=== PATIENT | female | born 1980 | race Caucasian/White ===

== ENCOUNTER → 2016-11-14 | Outpatient (CLI) | payer BC, OTHER ==
[~2016-11-14] MED LIST: /ACETCOD2T PO; /ONDA4TA PO; /ONDA4TA SL; /QUET25TA PO; ABIL1TAB5 PO; ADDE5TAB5 PO; ALPR1TAB PO; AMBI10TA PO; AMBI12.52 PO; AMBI5TAB PO; AMOX875T19 PO; BACT2CRE TOP; BENA25CA PO; BUTA1CAP PO; BUTR10DI2 TD; CARA1TAB2 PO; CELE20TA; CIPR3OPO OS; CIPR500T89 PO; CLIN300C2 PO; Calcium PO; D-AMPHETAMINE SALT PO; DICY10CA69 PO; DOXY100C42 PO; EFFE37.527 PO; ENOX40SY; FAMO20TA PO; FLAG500T PO; FLUR15CA14 PO; FOLI1TAB2 PO; GABA300C2 PO; GENT0.3S2 OS; GENTAMICIN TOP; HYDR-2808 PO; HYDR-3716 PO; HYDR-3719 PO; HYDR7.5T38 PO; IRON1TAB PO; LIDO1DIS2 TD; LORA0.5T PO; LOVE1INJ PO; LYRI75CA PO; META800T82 PO; MORP15TASA PO; MORPHINE IR PO; Multivitamin PO; NORC1TAB4 PO; OMEP40CA2 PO; ONDA1TAB15 PO; OXYC-208 PO; OXYC15TA76 PO; PEPC1TAB2 PO; PERC10TA17 PO; PERC5TAB8 OR; PERCOCET PO; PRIL40CA; PROM125TA PO; PROT1TAB2 PO; REGL10TA6 PO; REGL5TAB2 PO; ROBA500T PO; SALI0.9I2 IV; SENO8.6T9 PO; SERT-138 PO; SOMA350T PO; SUCR1SS PO; SUCR1TA PO; TIZA2CAP3 PO; TOBROPO OS; TPNINJ3 IV; TYLE325T5 PO; TYLE500T78 PO; VALI10TA PO; VENL75TA3 PO; VICO5TAB16 PO; VITA-122 PO; VITA10002 PO; Vitamin B12 PO; XANA2TAB2 PO; [UNRECOGNIZED DRUG - CODE] IV; [UNRECOGNIZED DRUG - CODE] IV; [UNRECOGNIZED DRUG - CODE] PO; [UNRECOGNIZED DRUG - REMARK] PO; ambien PO; epipen IM; iron PO; pepcid PO
--- NOTE | 2016-12-04 01:40 | ECWPNPC ---
PATIENT NAME: NI RICHMOND : 1980 GENDER: FEMALE VISIT DATE: 11/14/2016 DISCHARGE DATE: 11/14/16 1224 VISIT LOCKED DATE TIME: PHYSICIAN: LUIS BRANDON RESOURCE: LUIS BRANDON REASON FOR APPOINTMENT 1. STOMACH/BACK HISTORY OF PRESENT ILLNESS HISTORY OF PRESENT ILLNESS: PAIN THE PATIENT DESCRIBES THE PAIN... FALL RISK SCREENING: SCREENING :NO FALLS IN THE PAST YEAR TODAY'S VISIT: NOTES: FIRST VIST SINCE 09/05. STATES HAS HAD MULTIPLE DEATHS IN FAMILY AND FINALLY HAS DATE IN [place] FOR GI ISSUES.STILL CAN NOT EAT SOLID FOOT AND HAS PERSISTANT NAUSEA. NO SIGNIFICANT CONSTIPATION - HAS BLOOD IN STOOL. SLEEP DISRUPTED CAN NOT GET COMFORTABLE. RATES PAIN TODAY 5/10. PAIN IS CENTERD IN CENTER ABDOMEN WELL IN THE LOW BACK. DESCRIBES PAIN CONSTANT, BURNING, SHARP TENDER AND SORE. CURRENT MEDICATIONS TAKING EFFEXOR XR 225 MG CAPSULE EXTENDED RELEASE 24 HOUR 1 CAPSULE WITH FOOD ORALLY ONCE A DAY TAKING BENTYL 10 MG CAPSULE 1 CAPSULE ORALLY FOUR TIMES A DAY TAKING PROMETHAZINE HCL 25 MG TABLET 1 TABLET NEEDED ORALLY Q 6 HRS PRN NAUSEA TAKING ABILIFY 10 MG TABLET 1 TABLET ORALLY ONCE A DAY TAKING PROMETHAZINE HCL 25 MG SUPPOSITORY 1 SUPPOSITORY NEEDED RECTAL EVERY Q 8 HRS PRN NAUSEA TAKING ZOLPIDEM TARTRATE 10 MG TABLET 1 TABLET AT BEDTIME NEEDED ORALLY BEFORE BEDTIME MDD=1 TAKING OXYCODONE HCL 15 MG TABLET 1 TABLET NEEDED ORALLY EVERY 4 HRS PRN PAIN MDD=6 TAKING SOMA 350 MG TABLET 1 TABLET ORALLY THREE TIMES A DAY NEEDED FOR SPASM MDD=3 NOT-TAKING CYCLOBENZAPRINE HCL 10 MG TABLET 1 TABLET ORALLY THREE TIMES A DAY NOT-TAKING SOMA 350 MG TABLET 2 TABLET NEEDED ORALLY 2 TIMES A DAY MEDICATION LIST REVIEWED AND RECONCILED WITH THE PATIENT PAST MEDICAL HISTORY DEPRESSION/ANXIETY HYDRATION ISSUES HX OF MRSA BACK PROBLEM ALLERGIES SULFA (FOR ALLERGY USE ONLY): ANAPHYLAXIS: ALLERGY FENTANYL: HEART RATE FLUCTUATIONS: ALLERGY SOCIAL HISTORY GENERAL: TOBACCO USE ARE YOU A: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 NEW PATIENT PAIN DIARY TODAY'S VISITNOTES FROM 0-10, WHAT LEVEL IS YOUR PAIN TODAY?0 PAIN CLINIC PFS, CLERGY, PUBLIC HEALTH REFERRALS PFS REFERRAL NEEDED?NO CLERGY REFERRAL NEEDED?NO PUBLIC HEALTH REFERRAL NEEDED?NO WAS THE PROVIDER NOTIFIED OF ANY PERTINENT INFO?NO PFS REFERRAL NEEDED?NO CLERGY REFERRAL NEEDED?NO PUBLIC HEALTH REFERRAL NEEDED?NO WAS THE PROVIDER NOTIFIED OF ANY PERTINENT INFO?NO REVIEW OF SYSTEMS CONSTITUTIONAL: ANY CHANGE IN YOUR MEDICAL CONDITION? NO . CHILLS NO . FEVER NO . INFECTION: DO YOU HAVE NEW INFECTIONS? NO . DO YOU HAVE HISTORY OF MRSA? NO . MUSCULOSKELETAL: ANY NEW PATTERNS OF PAIN OR NUMBNESS? NO . GASTROENTEROLOGY: ANY NEW CHANGE IN BOWEL CONTROL? NO . GENITOURINARY: ANY NEW CHANGE IN BLADDER CONTROL? NO . IS THERE A CHANCE YOU COULD BE ? NO . HEMATOLOGY/LYMPH: DO YOU TAKE ANY BLOOD THINNERS? (FOR EXAMPLE- COUMADIN, PLAVIX, AGGRENOX, PLATEL, PRADAXA, OR XARELTO) NO . WHEN WAS YOUR LAST DOSE? DATE: TIME: . NEUROLOGY: HAVE YOU FALLEN IN THE PAST 6 MONTHS? NO . ANY NEW EXTREMITY NUMBNESS OR WEAKNESS? NO . CARDIOLOGY: DO YOU HAVE A PACEMAKER OR DEFIBRILLATOR? NO . RESPIRATORY: HAVE YOU BEEN SICK IN THE PAST WEEK? NO . FEVER NO . FLU LIKE SYMPTOMS? NO . COUGH NO . INTEGUMENTARY: DO YOU HAVE ANY RASHES OR OPEN SORES? NO . ALLERGIC/IMMUNO: ARE YOU ALLERGIC TO SHELLFISH OR IV DYE? NO . ANY NEW ALLERGIES? NO . PSYCHIATRIC: DO YOU HAVE THOUGHTS OF HURTING YOURSELF OR SOMEONE ELSE? NO . ARE YOU ABUSED, NEGLECTED, OR IN AN UNSAFE ENVIRONMENT? NO . ENDOCRINOLOGY: ARE YOU DIABETIC? NO . OTHER: DO YOU NEED ANY PRESCRIPTIONS? NO . IF YES, PLEASE LIST: ____ . ANY NEW PROBLEMS WITH YOUR MEDICATIONS? NO . WHEN DID YOU LAST EAT? ____ . WHEN DID YOU LAST DRINK? ____ . WHAT DID YOU LAST DRINK? ____ . NAME OF PERSON DRIVING YOU HOME? ____ . DO YOU HAVE ANY OTHER QUESTIONS OR CONCERNS NO . PSYCHOLOGY: ARE YOU RECEIVING COUNSELING? SEEING A COUNSELOR AND DR RAMOS TWICE A MONTH. REPORTS MULTIPLE FAMILY INJURIES AND DEATHS. REPORTS FAMILY IS IN [place] AND NOT LOCAL . REVIEWED BY: PROVIDER: LUIS DALEY . VITAL SIGNS WT 138.6 LBS, HT 66 IN, BMI 22.37 INDEX, BP 134/77 MM HG, HR 106 /MIN, RR 16 /MIN, TEMP 97.6 F, OXYGEN SAT % 100%, NA INITIALS SC 11:34. EXAMINATION GENERAL EXAMINATION: GENERAL APPEARANCE:COLOR IS PALE. PSYCHALERT , ORIENTED X 3 , ANXIOUS. LUNGS:DECREASED AIR ENTRY AT BASES, NO WHEEZES, RALES OT RHONCHI. HEART:HEART RATE REGULAR. ABDOMEN:TENDER TO PALPATION, MINIMAL DISTENTION, BOWEL SOUNDS QUIET. ASSESSMENTS EPIGASTRIC PAIN - R10.13 (PRIMARY) CHRONICALLY ON OPIATE THERAPY - Z79.899 TREATMENT EPIGASTRIC PAIN REFILL PROMETHAZINE HCL SUPPOSITORY, 25 MG, 1 SUPPOSITORY NEEDED, RECTAL, EVERY Q 8 HRS PRN NAUSEA, 30 DAY(S), 20, REFILLS 1 REFILL OXYCODONE HCL TABLET, 15 MG, 1 TABLET NEEDED, ORALLY, EVERY 4 HRS PRN PAIN MDD=5, 30 DAYS, 150, REFILLS 0 NOTES: FOLLOW UP WITH [facility]. MUST SEE WITH MEDS AT [facility] TODAY. CLINICAL NOTES: BRINGS EMPTY BOTTLE OF OXYCODONE TODAY AND STATES SHE HAS 6 TABS STILL AT HOME. I REVIEWED WITH HER KULDEEP SHE SHOULD HAVE AT LEAST 9 DAYS REMAINING. STATES THE PHARMACUIST GAVE HER INSTRUCTIONS THAT SHE COULD TAKE 6 TABS PER DAY. REVIEWED WITH HER THTA THAT WAS NOT THE PLAN AND SHE HAD ONLY BEEN RECEIVING 160 TABS/MONFOR THE LAST 4 MONTHS. WILL DECREASE TO 150 TABS PER DAY - MAX 5/DAY., ISTOP REGISTRY REVIEWED AND DEMNOSTRATES COMPLLIANCE. REVIEWED WITH PATIENT THE POTENTIAL RISK OF INCREASED SEDATION, RESPIRATORY SUPPRESSION AND WITH THE COMBINATION OF BENZODIAZAPINE AND OPIOD MEDICATIONS. PATIENT STATES HE UNDERSTANDS THIS RISK AND WISHES TO CONTINUE WITH THERAPY, RECENT URINE TOXICOLOGY REVIEWED. NO UNAUTHORIZED MEDICATIONS. NO ILLICIT SUBSTANCES AND PRESCRIBED MEDICATIONS WERE PRESENT. PROCEDURE CODES FA211 ESTABILISHED PATIENT [facility] CHARGE FOLLOW UP 1 MONTH (REASON: ABD PAIN) ELECTRONICALLY SIGNED BY RYLEY CROOK ON 12/03/2016 AT 09:44 AM EST DISCLAIMER : THIS IS A VISIT SUMMARY EXTRACTED FROM THE [employer] CHART. IT IS NOT A COPY OF THE [employer] PROGRESS NOTE. [facility]
== END ==
LOC: M PAIN 13:40
PROVIDERS: ATTEND Nurse Practitioner Family
DX: G89.29 Other chronic pain (principal); R10.13 Epigastric pain; R11.0 Nausea; R19.5 Other fecal abnormalities; G47.9 Sleep disorder, unspecified; F32.9 Major depressive disorder, single episode, unspecified; F41.9 Anxiety disorder, unspecified; Z88.2 Allergy status to sulfonamides; Z88.5 Allergy status to narcotic agent; Z79.899 Other long term (current) drug therapy; Z86.14 Personal history of Methicillin resistant Staphylococcus aureus infection

== ENCOUNTER 2016-12-14 10:07 | Emergency (ER) | payer BC, OTHER ==
[2016-12-14 11:15] LABS: ANION GAP 9 MEQ/L (8-16); BLOOD UREA NITROGEN 10 MG/DL (7-18); CALCIUM LEVEL 8.2 MG/DL (8.5-10.1); CARBON DIOXIDE LEVEL 27 MEQ/L (21-32); CHLORIDE LEVEL 104 MEQ/L (98-107); GLOMERULAR FILTRATION RATE > 60.0 (>60); GLUCOSE, FASTING 122 MG/DL (70-105); POTASSIUM SERUM 3.3 MEQ/L (3.5-5.1); SODIUM LEVEL 140 MEQ/L (136-145)
[2016-12-14] MEDS ORDERED: POTASSIUM CHLORIDE 10 MEQ SR TABLET As Ordered ONE (11:35)
--- NOTE | 2016-12-14 12:28 | EDDOCDS ---
Physician Documentation [facility] Name: Claude Diaz Age: 36 yrs Sex: Female : 1980 Arrival Date: 12/14/2016 Time: 10:07 Bed 5 Private MD: Troy Nino Disposition: 12/14 11:32 Critical Care: Critical care not applicable. pc Disposition: 12/14/16 11:35 Discharged to Home/Self Care. Impression: Opioid dependence with withdrawal, Chronic pain syndrome, Conversion disorder with seizures or convulsions - Pseudoseizures, Unspecified protein-calorie malnutrition - chronic, Hypokalemia - mild, treated. - Condition is Stable. - Discharge Instructions: Chronic Pain. - Medication Reconciliation, Local Pharmacy Hours form. - Follow up: Maryana Boykin FNP; When: As previously arranged; Reason: Continuance of care. - Problem is new. - Symptoms have improved. HPI: 10:39 This 36 yrs old Female presents to ER via Wheelchair with complaints of pc Palpitations. 10:39 The history is obtained from the patient. She complains of having palpitations and a pc fast heart rate since this morning. She denies any chest pain, SOB. She has a long history of pseudoseizures and chronic pain, overusing her medications regularly. She denies the same, despite her EMR showing a report from the Pain Clinic from only 4 weeks ago describing the same. She was using 6 tablets of oxycodone 15mg daily instead of 5 per day as written. Per Joan[facility], a new 7 day RX for oxycodone 10mg was sent in today by the Pain Clinic, due to her running out of her initial RX some 4 days or 20 pills short. She denies any of these events occurring despite the proof. During questioning, she had seizure-like activity that was stopped with sternal rubbing and she was not post-ictal, and she immediately requested "benzo's" for the activity. Her pulse has been 90-104 throughout the ED visit despite her describing it as racing . The patient has been recently seen by a painter plate. Historical: - Allergies: Fentanyl (tachcardia)transdermal; SULFA (SULFONAMIDES) (Anaphylaxis); - Home Meds: 1. fluoxetine 20 mg Oral cap 1 cap once daily (Last dose: 12/14/2016) 2. Soma 350 mg Oral tab 1 tab 3 times per day 3. lorazepam 1 mg Oral tab 1 tab as needed 4. venlafaxine 75 mg oral tr24 1 tab once daily 5. Ambien 10 mg Oral tab 1 tab nightly 6. Promethegan 25 mg Rectal supp q8hr PRN for nausea 7. oxycodone 10 mg Oral tab 1 tab every 4 hours - PMHx: Depression; herniated disc; Pancreatitis; - PSHx: Gastric bypass 2010; Hysterectomy; Tonsillectomy; Insertion of G-tube with subsequent removal 2013; - The history from nurses notes was reviewed: and I agree with what is documented. - Social history: Smoking status: Patient states was never smoker of tobacco. No barriers to communication noted. - : Unable to assess if pt is on anticoagulants. Unable to Verify Home Med List with the patient / caregiver. Note Will contact [facility] [employer] [facility] [employer] for complete list. - Hospitalizations: : No recent hospitalization is reported. - Exposure Risk Screening:: None identified. - Immunization history:: All immunizations up-to-date. - Family history: Not pertinent. - Social history:: the patient uses illicit drugs, including RX drug abuse - opioids, Soma and BDZs. 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 pc Exam: 10:39 General Appearance: no acute distress, alert, cachectic . pc 10:39 EENT: ears, nose and throat normal, pharynx normal, mucous membranes moist pupils 7mm. 10:39 Neck: The exam reveals no acute abnormalities. ROM is normal and painless. No nuchal rigidity is noted.. 10:39 Respiratory: no respiratory distress, normal breath sounds. 10:39 CVS: regular pulse rate, regular rhythm, normal S1 and S2, no murmurs, strong peripheral pulses. 10:39 Abdomen: soft, non-tender. 10:39 Back: normal inspection. 10:39 Skin: skin color is normal, warm, dry. 10:39 Extremities: The extremities have a grossly normal appearance. 10:39 Neuro: oriented x 3, cranial nerves normal as tested, no motor deficits, no sensory deficits. 10:39 Psych: normal mood. Vital Signs: 10:10 BP 120 / 69; Pulse 104; Resp 18; Temp 98.6(T); Pulse Ox 100% on R/A; Weight 61.23 kg / dem1 134.99 lbs; Height 5 ft. 7 in. (170.18 cm); Pain 8/10; 10:43 BP 107 / 64 (auto/); jo3 10:43 Pulse 84 MON; Pulse Ox 100% ; jo3 10:43 BP 116 / 66; Pulse 82; Resp 16; Temp 98.5(O); Pulse Ox 100% on R/A; jo3 10:58 BP 96 / 62 (auto/); jo3 10:58 Pulse 86 MON; Pulse Ox 100% ; jo3 11:13 BP 93 / 59 (auto/); jo3 11:13 Pulse 82 MON; Pulse Ox 100% ; jo3 11:43 BP 119 / 72 (auto/); jo3 11:43 Pulse 86 MON; Pulse Ox 100% ; jo3 10:10 Body Mass Index 21.14 (61.23 kg, 170.18 cm) dem1 MDM: 10:17 ECG WITH READING ER PHYS+CARDIAG ordered. EDMS 10:29 Fingerstick Blood Sugar Ordered. EDMS 10:37 Fingerstick Blood Sugar Reviewed. pc 10:37 Data reviewed: The patient's [facility] [employer] records were accessed. pc 10:39 Differential Diagnosis: dilated pupils, pulse 90-105 with proven history of overusing pc opioids requiring a new RX 4 days early just today suggests opioid withdrawal; pseudoseizure activity requesting BDZs. Plan: review triaged EKG, d./w PMC provider. Test interpretation: EKG. 10:41 Financial registration complete. lg 10:52 [facility] Payment Agreement was scanned into [employer] and attached to record. lg 10:59 MED Profile Ordered. EDMS 11:32 MED Profile Reviewed. pc 11:32 Potassium Chloride Extended Release Tablet 40 mEq PO once ordered. pc 11:32 Data reviewed: old medical records, vital signs, nurses notes, EKG(s), lab test pc results. Test interpretation: LAB - all labs as ordered have been reviewed, interpreted and considered in the overall management of the clinical presentation;. The patient has been re-examined and re-evaluated. The patient's symptoms have markedly improved after treatment. Physician consultation: Dr. Maryana Boykin MANAGER DESKTOP regarding patient's condition, and advises the medications/treatment as provided. and agrees with the treatment provided and advises the discharge plans as outlined. Disposition: The historical points, examination findings, and any diagnostic results supporting the provided diagnosis, were discussed with the patient or legal guardian. The need for outpatient follow up with the provider listed on their discharge instructions was discussed. They were encouraged to return to [facility], or the nearest ED, if symptoms worsen/persist, or for any other questions/concerns. EC:39 Rate is 85 beats/min. Rhythm is regular, Normal Sinus Rhythm. QRS [place] is Normal. [place] pc interval is normal. QRS interval is normal. QT interval is normal. No Q waves. T waves are Normal. No ST changes noted. Clinical impression: Normal Sinus Rhythm. Administered Medications: 11:38 Drug: Potassium Chloride 40 mEq [potassium chloride ER 10 mEq tablet,extended release jo3 (4 tabs)] Route: PO; Signatures: Dispatcher [employer] EDMS Ben Gifford MD MD pc Greene, Daniel, RN RN dwg Ganter, LoriLee, Reg [facility] Lucía Drake RN RN jo3 The chart was reviewed and I authenticate all verbal orders and agree with the evaluation and treatment provided.Attachments: 10:52 [facility] Payment Agreement lg HAILEY
--- NOTE | 2016-12-14 12:28 | EDDOCDS ---
Nurse's Notes [facility] Name: Claude Diaz Age: 36 yrs Sex: Female : 1980 Arrival Date: 12/14/2016 Time: 10:07 Bed 5 Private MD: Troy Nino Diagnosis: Chronic pain syndrome;Conversion disorder with seizures or convulsions-Pseudoseizures;Unspecified protein-calorie malnutrition-chronic;Hypokalemia-mild, treated;Opioid dependence with withdrawal Presentation: 12/14 10:14 Presenting complaint: Patient states: Heart palpitations and ''racing heart'' since 6am dwg today, denies chest pain. Adult Sepsis Screening: The patient does not have new or worsening altered mentation. Patient's respiratory rate is less than 22. Systolic blood pressure is greater than 100. Patient has a qSOFA score of 0- Negative Sepsis Screen. Suicide/Homicide risk assessment- the patient denies having any suicidal and/or homicidal ideations and does not present with any other emotional, behavioral or mental health complaints. 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 Transition of care: patient was not received from another setting of care. 10:14 Acuity: YAKELIN Level 3 dw 10:14 Method Of Arrival: Wheelchair [facility] 10:21 Presenting complaint: Patient states: FSBS 148 at 1015am. [facility] Triage Assessment: 10:19 General: Appears ill, Behavior is cooperative, quiet. Pain: Denies pain. HIV screening dwg NA for this visit Offered previously. 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 fluoxetine 20 mg Oral cap 1 cap once daily (Last dose: 12/14/2016) 2. Soma 350 mg Oral tab 1 tab 3 times per day 3. lorazepam 1 mg Oral tab 1 tab as needed 4. venlafaxine 75 mg oral tr24 1 tab once daily 5. Ambien 10 mg Oral tab 1 tab nightly 6. Promethegan 25 mg Rectal supp q8hr PRN for nausea 7. oxycodone 10 mg Oral tab 1 tab every 4 hours - PMHx: Depression; herniated disc; Pancreatitis; - PSHx: Gastric bypass 2010; Hysterectomy; Tonsillectomy; Insertion of G-tube with subsequent removal 2013; - The history from nurses notes was reviewed: and I agree with what is documented. - Social history: Smoking status: Patient states was never smoker of tobacco. No barriers to communication noted. - : Unable to assess if pt is on anticoagulants. Unable to Verify Home Med List with the patient / caregiver. Note Will contact [facility] [employer] [facility] for complete list. - Hospitalizations: : No recent hospitalization is reported. - Exposure Risk Screening:: None identified. - Immunization history:: All immunizations up-to-date. - Family history: Not pertinent. - Social history:: the patient uses illicit drugs, including RX drug abuse - opioids, Soma and BDZs. Screenin:10 Infection Control. dem1 12:04 Screening information is obtained from the patient. Fall risk: No risks identified. jo3 Assistance ADL's: requires no assistance with activities of daily living. Abuse/DV Screen: The patient / caregiver reports he/she is: not in a situation that causes fear, pain or injury. Nutritional screening: No deficits noted. Advance Directives: There is no active DNR order. home support is adequate. Assessment: 10:15 General: Appears in no apparent distress, Behavior is cooperative. Neurological: Level jo3 of Consciousness is awake, alert, Oriented to person, place, time. Cardiovascular: Heart tones S1 S2 present Rhythm is sinus rhythm No ectopy. Chest pain is denied. Respiratory: Airway is patent Respiratory effort is even, unlabored, Breath sounds are clear bilaterally. GI: Abdomen is non- distended Bowel sounds hypoactive in right upper quadrant, left upper quadrant, right lower quadrant and left lower quadrant. Derm: Skin is intact, Skin is dry, Skin is pale, Skin temperature is warm. 10:23 Reassessment: Pt now stating that she feel different than on arrival. When asked what jo3 had changed pt stated that she feels dizzy and nauseated and "I don't know where I am". 10:38 Reassessment: While having IV SL attempted, pt appeared to lose consciousness and jo3 became rigid and eyes rolled back and then fixed on ceiling. Pt then started mild tremors and pulled right arm u[p towards her face. Breathing remained regular and rhythmic and )2 saturation did not fall below 99%. Pulse rate mildly increased on monitor but with much artifact. Dr Gifford called to room for pseudoseizure activity in which pt reoriented at physician request and stopped all seizure activity . 12:04 General: Appears in no apparent distress, comfortable, Behavior is cooperative. jo3 Neurological: Level of Consciousness is awake, alert, Oriented to person, place, time. Cardiovascular: Rhythm is sinus rhythm No ectopy. Respiratory: Airway is patent Respiratory effort is even, unlabored. Derm: Skin is intact, Skin is dry, Skin is pale, Skin temperature is warm. Vital Signs: 10:10 BP 120 / 69; Pulse 104; Resp 18; Temp 98.6(T); Pulse Ox 100% on R/A; Weight 61.23 kg; dem1 Height 5 ft. 7 in. (170.18 cm); Pain 8/10; 10:43 BP 107 / 64 (auto/); jo3 10:43 Pulse 84 MON; Pulse Ox 100% ; jo3 10:43 BP 116 / 66; Pulse 82; Resp 16; Temp 98.5(O); Pulse Ox 100% on R/A; jo3 10:58 BP 96 / 62 (auto/); jo3 10:58 Pulse 86 MON; Pulse Ox 100% ; jo3 11:13 BP 93 / 59 (auto/); jo3 11:13 Pulse 82 MON; Pulse Ox 100% ; jo3 11:43 BP 119 / 72 (auto/); jo3 11:43 Pulse 86 MON; Pulse Ox 100% ; jo3 10:10 Body Mass Index 21.14 (61.23 kg, 170.18 cm) dem1 Vitals: 10:10 Log In Time: December 14, 2016 at 10:07. RN notified that patient meets Red Flag dem1 criteria. ED Course: 10:09 Patient visited by Juan Pablo Austin. dem1 10:09 Patient moved to Waiting dem1 10:10 Troy Nino MD is Private Physician. dem1 10:11 Patient visited by Juan Pablo Austin. dem1 10:14 Lucía Sosa, STACIE is Primary Nurse. dwg 10:14 Patient moved to 5 dwg 10:15 Triage Initiated dwg 10:22 EKG done. (by ED staff). Reviewed by Ben Gifford MD. jrd 10:30 Ben Gifford MD is Attending Physician. pc 10:33 Patient visited by Ben Gifford MD. pc 10:40 Inserted saline lock: 20 gauge in right antecubital area. Labs drawn. (by ED staff). jo3 Sent per order to lab. 10:52 [facility] Agreement was scanned into [employer] and attached to record. lg 11:34 Maryana Boykin FNP is Referral Physician. pc 12:04 The patient / caregiver is instructed regarding the plan of care and ED course. jo3 12:04 Discontinued IV lock intact, bleeding controlled, pressure dressing applied, No jo3 redness/swelling at site. No procedures done that require assistance. Administered Medications: 11:38 Drug: Potassium Chloride 40 mEq [potassium chloride ER 10 mEq tablet,extended release jo3 (4 tabs)] Route: PO; Order Results: Lab Order: Fingerstick Blood Sugar; SPEC'M 12/14/16 10:20 Test: BEDSIDE GLUCOSE; Value: 148; Range: 70-105; Abnormal: Above high normal; Units: MG/DL; Status: F Lab Order: MED Profile; SPEC'M 12/14/16 10:35 Test: GLUCOSE, FASTING; Value: 122; Range: 70-105; Abnormal: Above high normal; Units: MG/DL; Status: F Test: BLOOD UREA NITROGEN; Value: 10; Range: 7-18; Units: MG/DL; Status: F Test: CREATININE FOR GFR; Value: 0.70; Range: 0.55-1.02; Units: MG/DL; Status: F Test: GLOMERULAR FILTRATION RATE; Value: > 60.0; Range: >60; Status: F Test: SODIUM LEVEL; Value: 140; Range: 136-145; Units: MEQ/L; Status: F Test: POTASSIUM SERUM; Value: 3.3; Range: 3.5-5.1; Abnormal: Below low normal; Units: MEQ/L; Status: F Test: CHLORIDE LEVEL; Value: 104; Range: 98-107; Units: MEQ/L; Status: F Test: CARBON DIOXIDE LEVEL; Value: 27; Range: 21-32; Units: MEQ/L; Status: F Test: ANION GAP; Value: 9; Range: 8-16; Units: MEQ/L; Status: F Test: CALCIUM LEVEL; Value: 8.2; Range: 8.5-10.1; Abnormal: Below low normal; Units: MG/DL; Status: F Test Note: ; Units are mL/min/1.73 m2 Chronic Kidney Disease Staging per NKF: Stage I & II GFR >=60 Normal to Mildly Decreased Stage III GFR 30-59 Moderately Decreased Stage IV GFR 15-29 Severely Decreased Stage V GFR <15 Very Little GFR Left ESRD 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 pc 12:27 Patient left the ED. jo3 Signatures: Ben Gifford MD MD pc Greene, Daniel, RN RN Gabriela Fowler, Lucía Vital lgRN RN jo3 Juan Pablo Austin Joseph, PCA PHOTO SPECIALIST jrd MTDD
--- NOTE | 2016-12-14 15:24 | ECGEPIP ---
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
--- NOTE | 2016-12-16 13:28 | EDDOCDS ---
Physician Documentation [facility] Name: Claude Diaz Age: 36 yrs Sex: Female : 1980 Arrival Date: 12/14/2016 Time: 10:07 Bed 5 Private MD: Troy Nino Disposition: 12/14 11:32 Critical Care: Critical care not applicable. pc Disposition: 12/14/16 11:35 Discharged to Home/Self Care. Impression: Opioid dependence with withdrawal, Chronic pain syndrome, Conversion disorder with seizures or convulsions - Pseudoseizures, Unspecified protein-calorie malnutrition - chronic, Hypokalemia - mild, treated. - Condition is Stable. - Discharge Instructions: Chronic Pain. - Medication Reconciliation, Local Pharmacy Hours form. - Follow up: Maryana Boykin FNP; When: As previously arranged; Reason: Continuance of care. - Problem is new. - Symptoms have improved. HPI: 10:39 This 36 yrs old Female presents to ER via Wheelchair with complaints of pc Palpitations. 10:39 The history is obtained from the patient. She complains of having palpitations and a pc fast heart rate since this morning. She denies any chest pain, SOB. She has a long history of pseudoseizures and chronic pain, overusing her medications regularly. She denies the same, despite her EMR showing a report from the Pain Clinic from only 4 weeks ago describing the same. She was using 6 tablets of oxycodone 15mg daily instead of 5 per day as written. Per [facility], a new 7 day RX for oxycodone 10mg was sent in today by the Pain Clinic, due to her running out of her initial RX some 4 days or 20 pills short. She denies any of these events occurring despite the proof. During questioning, she had seizure-like activity that was stopped with sternal rubbing and she was not post-ictal, and she immediately requested "benzo's" for the activity. Her pulse has been 90-104 throughout the ED visit despite her describing it as racing . The patient has been recently seen by a aircraft painter. Historical: - Allergies: Fentanyl (tachcardia)transdermal; SULFA (SULFONAMIDES) (Anaphylaxis); - Home Meds: 1. fluoxetine 20 mg Oral cap 1 cap once daily (Last dose: 12/14/2016) 2. Soma 350 mg Oral tab 1 tab 3 times per day 3. lorazepam 1 mg Oral tab 1 tab as needed 4. venlafaxine 75 mg oral tr24 1 tab once daily 5. Ambien 10 mg Oral tab 1 tab nightly 6. Promethegan 25 mg Rectal supp q8hr PRN for nausea 7. oxycodone 10 mg Oral tab 1 tab every 4 hours - PMHx: Depression; herniated disc; Pancreatitis; - PSHx: Gastric bypass 2010; Hysterectomy; Tonsillectomy; Insertion of G-tube with subsequent removal 2013; - The history from nurses notes was reviewed: and I agree with what is documented. - Social history: Smoking status: Patient states was never smoker of tobacco. No barriers to communication noted. - : Unable to assess if pt is on anticoagulants. Unable to Verify Home Med List with the patient / caregiver. Note Will contact [employer] [facility] for complete list. - Hospitalizations: : No recent hospitalization is reported. - Exposure Risk Screening:: None identified. - Immunization history:: All immunizations up-to-date. - Family history: Not pertinent. - Social history:: the patient uses illicit drugs, including RX drug abuse - opioids, Soma and BDZs. 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 pc Exam: 10:39 General Appearance: no acute distress, alert, cachectic . pc 10:39 EENT: ears, nose and throat normal, pharynx normal, mucous membranes moist pupils 7mm. 10:39 Neck: The exam reveals no acute abnormalities. ROM is normal and painless. No nuchal rigidity is noted.. 10:39 Respiratory: no respiratory distress, normal breath sounds. 10:39 CVS: regular pulse rate, regular rhythm, normal S1 and S2, no murmurs, strong peripheral pulses. 10:39 Abdomen: soft, non-tender. 10:39 Back: normal inspection. 10:39 Skin: skin color is normal, warm, dry. 10:39 Extremities: The extremities have a grossly normal appearance. 10:39 Neuro: oriented x 3, cranial nerves normal as tested, no motor deficits, no sensory deficits. 10:39 Psych: normal mood. Vital Signs: 10:10 BP 120 / 69; Pulse 104; Resp 18; Temp 98.6(T); Pulse Ox 100% on R/A; Weight 61.23 kg / dem1 134.99 lbs; Height 5 ft. 7 in. (170.18 cm); Pain 8/10; 10:43 BP 107 / 64 (auto/); jo3 10:43 Pulse 84 MON; Pulse Ox 100% ; jo3 10:43 BP 116 / 66; Pulse 82; Resp 16; Temp 98.5(O); Pulse Ox 100% on R/A; jo3 10:58 BP 96 / 62 (auto/); jo3 10:58 Pulse 86 MON; Pulse Ox 100% ; jo3 11:13 BP 93 / 59 (auto/); jo3 11:13 Pulse 82 MON; Pulse Ox 100% ; jo3 11:43 BP 119 / 72 (auto/); jo3 11:43 Pulse 86 MON; Pulse Ox 100% ; jo3 10:10 Body Mass Index 21.14 (61.23 kg, 170.18 cm) dem1 MDM: 10:17 ECG WITH READING ER PHYS+CARDIAG ordered. EDMS 10:29 Fingerstick Blood Sugar Ordered. EDMS 10:37 Fingerstick Blood Sugar Reviewed. pc 10:37 Data reviewed: The patient's [facility] records were accessed. pc 10:39 Differential Diagnosis: dilated pupils, pulse 90-105 with proven history of overusing pc opioids requiring a new RX 4 days early just today suggests opioid withdrawal; pseudoseizure activity requesting BDZs. Plan: review triaged EKG, d./w PMC provider. Test interpretation: EKG. 10:41 Financial registration complete. lg 10:52 [facility] [place] Agreement was scanned into [employer] and attached to record. lg 10:59 MED Profile Ordered. EDMS 11:32 MED Profile Reviewed. pc 11:32 Potassium Chloride Extended Release Tablet 40 mEq PO once ordered. pc 11:32 Data reviewed: old medical records, vital signs, nurses notes, EKG(s), lab test pc results. Test interpretation: LAB - all labs as ordered have been reviewed, interpreted and considered in the overall management of the clinical presentation;. The patient has been re-examined and re-evaluated. The patient's symptoms have markedly improved after treatment. Physician consultation: Dr. Maryana Boykin PURSE SEINER regarding patient's condition, and advises the medications/treatment as provided. and agrees with the treatment provided and advises the discharge plans as outlined. Disposition: The historical points, examination findings, and any diagnostic results supporting the provided diagnosis, were discussed with the patient or legal guardian. The need for outpatient follow up with the provider listed on their discharge instructions was discussed. They were encouraged to return to [facility], or the nearest ED, if symptoms worsen/persist, or for any other questions/concerns. EC:39 Rate is 85 beats/min. Rhythm is regular, Normal Sinus Rhythm. QRS [place] is Normal. ID pc interval is normal. QRS interval is normal. QT interval is normal. No Q waves. T waves are Normal. No ST changes noted. Clinical impression: Normal Sinus Rhythm. Administered Medications: 11:38 Drug: Potassium Chloride 40 mEq [potassium chloride ER 10 mEq tablet,extended release jo3 (4 tabs)] Route: PO; Signatures: Dispatcher [employer] EDMS Ben Gifford MD MD pc Greene, Daniel, RN RN dwg Ganter, LoriLee, Reg [facility] Lucía Drake RN RN jo3 The chart was reviewed and I authenticate all verbal orders and agree with the evaluation and treatment provided.Attachments: 10:52 [facility] Payment Agreement lg Chart Complete MTDD
--- NOTE | 2016-12-16 13:28 | EDDOCDS ---
Nurse's Notes [facility] Name: Claude Richmond Age: 36 yrs Sex: Female : 1980 Arrival Date: 12/14/2016 Time: 10:07 Bed 5 Private MD: Troy Nino Diagnosis: Chronic pain syndrome;Conversion disorder with seizures or convulsions-Pseudoseizures;Unspecified protein-calorie malnutrition-chronic;Hypokalemia-mild, treated;Opioid dependence with withdrawal Presentation: 12/14 10:14 Presenting complaint: Patient states: Heart palpitations and ''racing heart'' since 6am dwg today, denies chest pain. Adult Sepsis Screening: The patient does not have new or worsening altered mentation. Patient's respiratory rate is less than 22. Systolic blood pressure is greater than 100. Patient has a qSOFA score of 0- Negative Sepsis Screen. Suicide/Homicide risk assessment- the patient denies having any suicidal and/or homicidal ideations and does not present with any other emotional, behavioral or mental health complaints. Status: Patient is not a information services assistant or dependent. Transition of care: patient was not received from another setting of care. 10:14 Acuity: YAKELIN Level 3 dw 10:14 Method Of Arrival: Wheelchair [facility] 10:21 Presenting complaint: Patient states: FSBS 148 at 1015am. [facility] Triage Assessment: 10:19 General: Appears ill, Behavior is cooperative, quiet. Pain: Denies pain. HIV screening dwg NA for this visit Offered previously. 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 fluoxetine 20 mg Oral cap 1 cap once daily (Last dose: 12/14/2016) 2. Soma 350 mg Oral tab 1 tab 3 times per day 3. lorazepam 1 mg Oral tab 1 tab as needed 4. venlafaxine 75 mg oral tr24 1 tab once daily 5. Ambien 10 mg Oral tab 1 tab nightly 6. Promethegan 25 mg Rectal supp q8hr PRN for nausea 7. oxycodone 10 mg Oral tab 1 tab every 4 hours - PMHx: Depression; herniated disc; Pancreatitis; - PSHx: Gastric bypass 2010; Hysterectomy; Tonsillectomy; Insertion of G-tube with subsequent removal 2013; - The history from nurses notes was reviewed: and I agree with what is documented. - Social history: Smoking status: Patient states was never smoker of tobacco. No barriers to communication noted. - : Unable to assess if pt is on anticoagulants. Unable to Verify Home Med List with the patient / caregiver. Note Will [facility] for complete list. - Hospitalizations: : No recent hospitalization is reported. - Exposure Risk Screening:: None identified. - Immunization history:: All immunizations up-to-date. - Family history: Not pertinent. - Social history:: the patient uses illicit drugs, including RX drug abuse - opioids, Soma and BDZs. Screenin:10 Infection Control. dem1 12:04 Screening information is obtained from the patient. Fall risk: No risks identified. jo3 Assistance ADL's: requires no assistance with activities of daily living. Abuse/DV Screen: The patient / caregiver reports he/she is: not in a situation that causes fear, pain or injury. Nutritional screening: No deficits noted. Advance Directives: There is no active DNR order. home support is adequate. Assessment: 10:15 General: Appears in no apparent distress, Behavior is cooperative. Neurological: Level jo3 of Consciousness is awake, alert, Oriented to person, place, time. Cardiovascular: Heart tones S1 S2 present Rhythm is sinus rhythm No ectopy. Chest pain is denied. Respiratory: Airway is patent Respiratory effort is even, unlabored, Breath sounds are clear bilaterally. GI: Abdomen is non- distended Bowel sounds hypoactive in right upper quadrant, left upper quadrant, right lower quadrant and left lower quadrant. Derm: Skin is intact, Skin is dry, Skin is pale, Skin temperature is warm. 10:23 Reassessment: Pt now stating that she feel different than on arrival. When asked what jo3 had changed pt stated that she feels dizzy and nauseated and "I don't know where I am". 10:38 Reassessment: While having IV SL attempted, pt appeared to lose consciousness and jo3 became rigid and eyes rolled back and then fixed on ceiling. Pt then started mild tremors and pulled right arm u[p towards her face. Breathing remained regular and rhythmic and )2 saturation did not fall below 99%. Pulse rate mildly increased on monitor but with much artifact. Dr Gifford called to room for pseudoseizure activity in which pt reoriented at physician request and stopped all seizure activity . 12:04 General: Appears in no apparent distress, comfortable, Behavior is cooperative. jo3 Neurological: Level of Consciousness is awake, alert, Oriented to person, place, time. Cardiovascular: Rhythm is sinus rhythm No ectopy. Respiratory: Airway is patent Respiratory effort is even, unlabored. Derm: Skin is intact, Skin is dry, Skin is pale, Skin temperature is warm. Vital Signs: 10:10 BP 120 / 69; Pulse 104; Resp 18; Temp 98.6(T); Pulse Ox 100% on R/A; Weight 61.23 kg; dem1 Height 5 ft. 7 in. (170.18 cm); Pain 8/10; 10:43 BP 107 / 64 (auto/); jo3 10:43 Pulse 84 MON; Pulse Ox 100% ; jo3 10:43 BP 116 / 66; Pulse 82; Resp 16; Temp 98.5(O); Pulse Ox 100% on R/A; jo3 10:58 BP 96 / 62 (auto/); jo3 10:58 Pulse 86 MON; Pulse Ox 100% ; jo3 11:13 BP 93 / 59 (auto/); jo3 11:13 Pulse 82 MON; Pulse Ox 100% ; jo3 11:43 BP 119 / 72 (auto/); jo3 11:43 Pulse 86 MON; Pulse Ox 100% ; jo3 10:10 Body Mass Index 21.14 (61.23 kg, 170.18 cm) dem1 Vitals: 10:10 Log In Time: December 14, 2016 at 10:07. RN notified that patient meets Red Flag dem1 criteria. ED Course: 10:09 Patient visited by Juan Pablo Austin. dem1 10:09 Patient moved to Waiting dem1 10:10 Troy Nino MD is Private Physician. dem1 10:11 Patient visited by Juan Pablo Austin. dem1 10:14 Lucía Sosa, STACIE is Primary Nurse. dwg 10:14 Patient moved to 5 dwg 10:15 Triage Initiated dwg 10:22 EKG done. (by ED staff). Reviewed by Ben Gifford MD. jrd 10:30 Ben Gifford MD is Attending Physician. pc 10:33 Patient visited by Ben Gifford MD. pc 10:40 Inserted saline lock: 20 gauge in right antecubital area. Labs drawn. (by ED staff). jo3 Sent per order to lab. 10:52 [facility] Payment Agreement was scanned into [employer] and attached to record. lg 11:34 Maryana Boykin FNP is Referral Physician. pc 12:04 The patient / caregiver is instructed regarding the plan of care and ED course. jo3 12:04 Discontinued IV lock intact, bleeding controlled, pressure dressing applied, No jo3 redness/swelling at site. No procedures done that require assistance. 16:07 EKG-ADULT Returned. EDMS Administered Medications: 11:38 Drug: Potassium Chloride 40 mEq [potassium chloride ER 10 mEq tablet,extended release jo3 (4 tabs)] Route: PO; Order Results: Lab Order: Fingerstick Blood Sugar; SPEC'M 12/14/16 10:20 Test: BEDSIDE GLUCOSE; Value: 148; Range: 70-105; Abnormal: Above high normal; Units: MG/DL; Status: F Lab Order: MED Profile; SPEC'M 12/14/16 10:35 Test: GLUCOSE, FASTING; Value: 122; Range: 70-105; Abnormal: Above high normal; Units: MG/DL; Status: F Test: BLOOD UREA NITROGEN; Value: 10; Range: 7-18; Units: MG/DL; Status: F Test: CREATININE FOR GFR; Value: 0.70; Range: 0.55-1.02; Units: MG/DL; Status: F Test: GLOMERULAR FILTRATION RATE; Value: > 60.0; Range: >60; Status: F Test: SODIUM LEVEL; Value: 140; Range: 136-145; Units: MEQ/L; Status: F Test: POTASSIUM SERUM; Value: 3.3; Range: 3.5-5.1; Abnormal: Below low normal; Units: MEQ/L; Status: F Test: CHLORIDE LEVEL; Value: 104; Range: 98-107; Units: MEQ/L; Status: F Test: CARBON DIOXIDE LEVEL; Value: 27; Range: 21-32; Units: MEQ/L; Status: F Test: ANION GAP; Value: 9; Range: 8-16; Units: MEQ/L; Status: F Test: CALCIUM LEVEL; Value: 8.2; Range: 8.5-10.1; Abnormal: Below low normal; Units: MG/DL; Status: F Test Note: ; Units are mL/min/1.73 m2 Chronic Kidney Disease Staging per NKF: Stage I & II GFR >=60 Normal to Mildly Decreased Stage III GFR 30-59 Moderately Decreased Stage IV GFR 15-29 Severely Decreased Stage V GFR <15 Very Little GFR Left ESRD GFR <15 on CENSUS TAKER Radiology Order: EKG-ADULT Test: EKG-ADULT REASON FOR EXAMINATION: Chest Pain; Stationary ECG Study; 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 pc 12:27 Patient left the ED. jo3 Signatures: Dispatcher [employer] Ben Michel MD MD pc Greene, Daniel, RN RN dwg Ganter, LoriLee, Reg Reg lg Helmerci, Jennifer, RN RN joJuan Pablo Sarkar Joseph, PCA PCA jrtran Chart Complete MTDD
--- NOTE | 2016-12-16 13:28 | EDDOCDS ---
Physician Documentation [facility] Name: Claude Diaz Age: 36 yrs Sex: Female : 1980 Arrival Date: 12/14/2016 Time: 10:07 Bed 5 Private MD: Troy Nino Disposition: 12/14 11:32 Critical Care: Critical care not applicable. pc Disposition: 12/14/16 11:35 Discharged to Home/Self Care. Impression: Opioid dependence with withdrawal, Chronic pain syndrome, Conversion disorder with seizures or convulsions - Pseudoseizures, Unspecified protein-calorie malnutrition - chronic, Hypokalemia - mild, treated. - Condition is Stable. - Discharge Instructions: Chronic Pain. - Medication Reconciliation, Local Pharmacy Hours form. - Follow up: Maryana Boykin FNP; When: As previously arranged; Reason: Continuance of care. - Problem is new. - Symptoms have improved. HPI: 10:39 This 36 yrs old Female presents to ER via Wheelchair with complaints of pc Palpitations. 10:39 The history is obtained from the patient. She complains of having palpitations and a pc fast heart rate since this morning. She denies any chest pain, SOB. She has a long history of pseudoseizures and chronic pain, overusing her medications regularly. She denies the same, despite her EMR showing a report from the Pain Clinic from only 4 weeks ago describing the same. She was using 6 tablets of oxycodone 15mg daily instead of 5 per day as written. Per [facility], a new 7 day RX for oxycodone 10mg was sent in today by the Pain Clinic, due to her running out of her initial RX some 4 days or 20 pills short. She denies any of these events occurring despite the proof. During questioning, she had seizure-like activity that was stopped with sternal rubbing and she was not post-ictal, and she immediately requested "benzo's" for the activity. Her pulse has been 90-104 throughout the ED visit despite her describing it as racing . The patient has been recently seen by a painter apprentice. Historical: - Allergies: Fentanyl (tachcardia)transdermal; SULFA (SULFONAMIDES) (Anaphylaxis); - Home Meds: 1. fluoxetine 20 mg Oral cap 1 cap once daily (Last dose: 12/14/2016) 2. Soma 350 mg Oral tab 1 tab 3 times per day 3. lorazepam 1 mg Oral tab 1 tab as needed 4. venlafaxine 75 mg oral tr24 1 tab once daily 5. Ambien 10 mg Oral tab 1 tab nightly 6. Promethegan 25 mg Rectal supp q8hr PRN for nausea 7. oxycodone 10 mg Oral tab 1 tab every 4 hours - PMHx: Depression; herniated disc; Pancreatitis; - PSHx: Gastric bypass 2010; Hysterectomy; Tonsillectomy; Insertion of G-tube with subsequent removal 2013; - The history from nurses notes was reviewed: and I agree with what is documented. - Social history: Smoking status: Patient states was never smoker of tobacco. No barriers to communication noted. - : Unable to assess if pt is on anticoagulants. Unable to Verify Home Med List with the patient / caregiver. Note Will contact [facility] for complete list. - Hospitalizations: : No recent hospitalization is reported. - Exposure Risk Screening:: None identified. - Immunization history:: All immunizations up-to-date. - Family history: Not pertinent. - Social history:: the patient uses illicit drugs, including RX drug abuse - opioids, Soma and BDZs. 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 pc Exam: 10:39 General Appearance: no acute distress, alert, cachectic . pc 10:39 EENT: ears, nose and throat normal, pharynx normal, mucous membranes moist pupils 7mm. 10:39 Neck: The exam reveals no acute abnormalities. ROM is normal and painless. No nuchal rigidity is noted.. 10:39 Respiratory: no respiratory distress, normal breath sounds. 10:39 CVS: regular pulse rate, regular rhythm, normal S1 and S2, no murmurs, strong peripheral pulses. 10:39 Abdomen: soft, non-tender. 10:39 Back: normal inspection. 10:39 Skin: skin color is normal, warm, dry. 10:39 Extremities: The extremities have a grossly normal appearance. 10:39 Neuro: oriented x 3, cranial nerves normal as tested, no motor deficits, no sensory deficits. 10:39 Psych: normal mood. Vital Signs: 10:10 BP 120 / 69; Pulse 104; Resp 18; Temp 98.6(T); Pulse Ox 100% on R/A; Weight 61.23 kg / dem1 134.99 lbs; Height 5 ft. 7 in. (170.18 cm); Pain 8/10; 10:43 BP 107 / 64 (auto/); jo3 10:43 Pulse 84 MON; Pulse Ox 100% ; jo3 10:43 BP 116 / 66; Pulse 82; Resp 16; Temp 98.5(O); Pulse Ox 100% on R/A; jo3 10:58 BP 96 / 62 (auto/); jo3 10:58 Pulse 86 MON; Pulse Ox 100% ; jo3 11:13 BP 93 / 59 (auto/); jo3 11:13 Pulse 82 MON; Pulse Ox 100% ; jo3 11:43 BP 119 / 72 (auto/); jo3 11:43 Pulse 86 MON; Pulse Ox 100% ; jo3 10:10 Body Mass Index 21.14 (61.23 kg, 170.18 cm) dem1 MDM: 10:17 ECG WITH READING ER PHYS+CARDIAG ordered. EDMS 10:29 Fingerstick Blood Sugar Ordered. EDMS 10:37 Fingerstick Blood Sugar Reviewed. pc 10:37 Data reviewed: The patient's [facility] records were accessed. pc 10:39 Differential Diagnosis: dilated pupils, pulse 90-105 with proven history of overusing pc opioids requiring a new RX 4 days early just today suggests opioid withdrawal; pseudoseizure activity requesting BDZs. Plan: review triaged EKG, d./w PMC provider. Test interpretation: EKG. 10:41 Financial registration complete. lg 10:52 [facility] was [place] into [employer] and attached to record. lg 10:59 MED Profile Ordered. EDMS 11:32 MED Profile Reviewed. pc 11:32 Potassium Chloride Extended Release Tablet 40 mEq PO once ordered. pc 11:32 Data reviewed: old medical records, vital signs, nurses notes, EKG(s), lab test pc results. Test interpretation: LAB - all labs as ordered have been reviewed, interpreted and considered in the overall management of the clinical presentation;. The patient has been re-examined and re-evaluated. The patient's symptoms have markedly improved after treatment. Physician consultation: Dr. Maryana Boykin GARAGE ATTENDANT regarding patient's condition, and advises the medications/treatment as provided. and agrees with the treatment provided and advises the discharge plans as outlined. Disposition: The historical points, examination findings, and any diagnostic results supporting the provided diagnosis, were discussed with the patient or legal guardian. The need for outpatient follow up with the provider listed on their discharge instructions was discussed. They were encouraged to return to [facility], or the nearest ED, if symptoms worsen/persist, or for any other questions/concerns. EC:39 Rate is 85 beats/min. Rhythm is regular, Normal Sinus Rhythm. QRS [place] is Normal. NM pc interval is normal. QRS interval is normal. QT interval is normal. No Q waves. T waves are Normal. No ST changes noted. Clinical impression: Normal Sinus Rhythm. Administered Medications: 11:38 Drug: Potassium Chloride 40 mEq [potassium chloride ER 10 mEq tablet,extended release jo3 (4 tabs)] Route: PO; Signatures: Dispatcher [employer] EDMS Ben Gifford MD MD pc Greene, Daniel, RN RN dwg Ganter, LoriLee, Reg [facility] Lucía Drake RN RN jo3 The chart was reviewed and I authenticate all verbal orders and agree with the evaluation and treatment provided.Attachments: 10:52 [facility] Payment Agreement lg Chart Complete MTDD
--- NOTE | 2016-12-16 22:34 | EDDOCDS ---
Physician Documentation [facility] Name: Claude Diaz Age: 36 yrs Sex: Female : 1980 Arrival Date: 12/14/2016 Time: 10:07 Bed 5 Private MD: Troy Nino Disposition: 12/14 11:32 Critical Care: Critical care not applicable. pc Disposition: 12/14/16 11:35 Discharged to Home/Self Care. Impression: Opioid dependence with withdrawal, Chronic pain syndrome, Conversion disorder with seizures or convulsions - Pseudoseizures, Unspecified protein-calorie malnutrition - chronic, Hypokalemia - mild, treated. - Condition is Stable. - Discharge Instructions: Chronic Pain. - Medication Reconciliation, Local Pharmacy Hours form. - Follow up: Maryana Boykin FNP; When: As previously arranged; Reason: Continuance of care. - Problem is new. - Symptoms have improved. HPI: 10:39 This 36 yrs old Female presents to ER via Wheelchair with complaints of pc Palpitations. 10:39 The history is obtained from the patient. She complains of having palpitations and a pc fast heart rate since this morning. She denies any chest pain, SOB. She has a long history of pseudoseizures and chronic pain, overusing her medications regularly. She denies the same, despite her EMR showing a report from the [facility] from only 4 weeks ago describing the same. She was using 6 tablets of oxycodone 15mg daily instead of 5 per day as written. Per [facility], a new 7 day RX for oxycodone 10mg was sent in today by the Pain Clinic, due to her running out of her initial RX some 4 days or 20 pills short. She denies any of these events occurring despite the proof. During questioning, she had seizure-like activity that was stopped with sternal rubbing and she was not post-ictal, and she immediately requested "benzo's" for the activity. Her pulse has been 90-104 throughout the ED visit despite her describing it as racing . The patient has been recently seen by a paint spray inspector. Historical: - Allergies: Fentanyl (tachcardia)transdermal; SULFA (SULFONAMIDES) (Anaphylaxis); - Home Meds: 1. fluoxetine 20 mg Oral cap 1 cap once daily (Last dose: 12/14/2016) 2. Soma 350 mg Oral tab 1 tab 3 times per day 3. lorazepam 1 mg Oral tab 1 tab as needed 4. venlafaxine 75 mg oral tr24 1 tab once daily 5. Ambien 10 mg Oral tab 1 tab nightly 6. Promethegan 25 mg Rectal supp q8hr PRN for nausea 7. oxycodone 10 mg Oral tab 1 tab every 4 hours - PMHx: Depression; herniated disc; Pancreatitis; - PSHx: Gastric bypass 2010; Hysterectomy; Tonsillectomy; Insertion of G-tube with subsequent removal 2013; - The history from nurses notes was reviewed: and I agree with what is documented. - Social history: Smoking status: Patient states was never smoker of tobacco. No barriers to communication noted. - : Unable to assess if pt is on anticoagulants. Unable to Verify Home Med List with the patient / caregiver. Note Will contact [employer] [facility] [employer] for complete list. - Hospitalizations: : No recent hospitalization is reported. - Exposure Risk Screening:: None identified. - Immunization history:: All immunizations up-to-date. - Family history: Not pertinent. - Social history:: the patient uses illicit drugs, including RX drug abuse - opioids, Soma and BDZs. 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 pc Exam: 10:39 General Appearance: no acute distress, alert, cachectic . pc 10:39 EENT: ears, nose and throat normal, pharynx normal, mucous membranes moist pupils 7mm. 10:39 Neck: The exam reveals no acute abnormalities. ROM is normal and painless. No nuchal rigidity is noted.. 10:39 Respiratory: no respiratory distress, normal breath sounds. 10:39 CVS: regular pulse rate, regular rhythm, normal S1 and S2, no murmurs, strong peripheral pulses. 10:39 Abdomen: soft, non-tender. 10:39 Back: normal inspection. 10:39 Skin: skin color is normal, warm, dry. 10:39 Extremities: The extremities have a grossly normal appearance. 10:39 Neuro: oriented x 3, cranial nerves normal as tested, no motor deficits, no sensory deficits. 10:39 Psych: normal mood. Vital Signs: 10:10 BP 120 / 69; Pulse 104; Resp 18; Temp 98.6(T); Pulse Ox 100% on R/A; Weight 61.23 kg / dem1 134.99 lbs; Height 5 ft. 7 in. (170.18 cm); Pain 8/10; 10:43 BP 107 / 64 (auto/); jo3 10:43 Pulse 84 MON; Pulse Ox 100% ; jo3 10:43 BP 116 / 66; Pulse 82; Resp 16; Temp 98.5(O); Pulse Ox 100% on R/A; jo3 10:58 BP 96 / 62 (auto/); jo3 10:58 Pulse 86 MON; Pulse Ox 100% ; jo3 11:13 BP 93 / 59 (auto/); jo3 11:13 Pulse 82 MON; Pulse Ox 100% ; jo3 11:43 BP 119 / 72 (auto/); jo3 11:43 Pulse 86 MON; Pulse Ox 100% ; jo3 10:10 Body Mass Index 21.14 (61.23 kg, 170.18 cm) dem1 MDM: 10:17 ECG WITH READING ER PHYS+CARDIAG ordered. EDMS 10:29 Fingerstick Blood Sugar Ordered. EDMS 10:37 Fingerstick Blood Sugar Reviewed. 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 pc 10:39 Differential Diagnosis: dilated pupils, pulse 90-105 with proven history of overusing pc opioids requiring a new RX 4 days early just today suggests opioid withdrawal; pseudoseizure activity requesting BDZs. Plan: review triaged EKG, d./w PMC provider. Test interpretation: EKG. 10:41 Financial registration complete. lg 10:52 [facility] Payment Agreement was scanned into [employer] and attached to record. lg 10:59 MED Profile Ordered. EDMS 11:32 MED Profile Reviewed. pc 11:32 Potassium Chloride Extended Release Tablet 40 mEq PO once ordered. pc 11:32 Data reviewed: old medical records, vital signs, nurses notes, EKG(s), lab test pc results. Test interpretation: LAB - all labs as ordered have been reviewed, interpreted and considered in the overall management of the clinical presentation;. The patient has been re-examined and re-evaluated. The patient's symptoms have markedly improved after treatment. Physician consultation: Dr. Maryana Boykin COST COORDINATOR regarding patient's condition, and advises the medications/treatment as provided. and agrees with the treatment provided and advises the discharge plans as outlined. Disposition: The historical points, examination findings, and any diagnostic results supporting the provided diagnosis, were discussed with the patient or legal guardian. The need for outpatient follow up with the provider listed on their discharge instructions was discussed. They were encouraged to return to [facility], or the nearest ED, if symptoms worsen/persist, or for any other questions/concerns. EC:39 Rate is 85 beats/min. Rhythm is regular, Normal Sinus Rhythm. QRS [place] is Normal. DC pc interval is normal. QRS interval is normal. QT interval is normal. No Q waves. T waves are Normal. No ST changes noted. Clinical impression: Normal Sinus Rhythm. Administered Medications: 11:38 Drug: Potassium Chloride 40 mEq [potassium chloride ER 10 mEq tablet,extended release jo3 (4 tabs)] Route: PO; Signatures: Dispatcher [employer] EDMS Ben Gifford MD MD pc Greene, Daniel, RN RN dwg Ganter, LoriLee, Reg [facility] Lucía Drake RN RN jo3 The chart was reviewed and I authenticate all verbal orders and agree with the evaluation and treatment provided.Attachments: 10:52 [facility] Payment Agreement lg Chart Complete MTDD
--- NOTE | 2016-12-16 22:34 | EDDOCDS ---
Nurse's Notes [facility] Name: Claude Richmond Age: 36 yrs Sex: Female : 1980 Arrival Date: 12/14/2016 Time: 10:07 Bed 5 Private MD: Troy Nino Diagnosis: Chronic pain syndrome;Conversion disorder with seizures or convulsions-Pseudoseizures;Unspecified protein-calorie malnutrition-chronic;Hypokalemia-mild, treated;Opioid dependence with withdrawal Presentation: 12/14 10:14 Presenting complaint: Patient states: Heart palpitations and ''racing heart'' since 6am dwg today, denies chest pain. Adult Sepsis Screening: The patient does not have new or worsening altered mentation. Patient's respiratory rate is less than 22. Systolic blood pressure is greater than 100. Patient has a qSOFA score of 0- Negative Sepsis Screen. Suicide/Homicide risk assessment- the patient denies having any suicidal and/or homicidal ideations and does not present with any other emotional, behavioral or mental health complaints. Status: Patient is not a security services specialist or dependent. Transition of care: patient was not received from another setting of care. 10:14 Acuity: YAKELIN Level 3 dw 10:14 Method Of Ar[facility] 10:21 Presenting complaint: Patient states: FSBS 148 at 1015am. [facility] Triage Assessment: 10:19 General: Appears ill, Behavior is cooperative, quiet. Pain: Denies pain. HIV screening dwg NA for this visit Offered previously. 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 fluoxetine 20 mg Oral cap 1 cap once daily (Last dose: 12/14/2016) 2. Soma 350 mg Oral tab 1 tab 3 times per day 3. lorazepam 1 mg Oral tab 1 tab as needed 4. venlafaxine 75 mg oral tr24 1 tab once daily 5. Ambien 10 mg Oral tab 1 tab nightly 6. Promethegan 25 mg Rectal supp q8hr PRN for nausea 7. oxycodone 10 mg Oral tab 1 tab every 4 hours - PMHx: Depression; herniated disc; Pancreatitis; - PSHx: Gastric bypass 2010; Hysterectomy; Tonsillectomy; Insertion of G-tube with subsequent removal 2013; - The history from nurses notes was reviewed: and I agree with what is documented. - Social history: Smoking status: Patient states was never smoker of tobacco. No barriers to communication noted. - : Unable to assess if pt is on anticoagulants. Unable to Verify Home Med List with the patient / caregiver. Note Will contact [facility] [employer] [facility] for complete list. - Hospitalizations: : No recent hospitalization is reported. - Exposure Risk Screening:: None identified. - Immunization history:: All immunizations up-to-date. - Family history: Not pertinent. - Social history:: the patient uses illicit drugs, including RX drug abuse - opioids, Soma and BDZs. Screenin:10 Infection Control. dem1 12:04 Screening information is obtained from the patient. Fall risk: No risks identified. jo3 Assistance ADL's: requires no assistance with activities of daily living. Abuse/DV Screen: The patient / caregiver reports he/she is: not in a situation that causes fear, pain or injury. Nutritional screening: No deficits noted. Advance Directives: There is no active DNR order. home support is adequate. Assessment: 10:15 General: Appears in no apparent distress, Behavior is cooperative. Neurological: Level jo3 of Consciousness is awake, alert, Oriented to person, place, time. Cardiovascular: Heart tones S1 S2 present Rhythm is sinus rhythm No ectopy. Chest pain is denied. Respiratory: Airway is patent Respiratory effort is even, unlabored, Breath sounds are clear bilaterally. GI: Abdomen is non- distended Bowel sounds hypoactive in right upper quadrant, left upper quadrant, right lower quadrant and left lower quadrant. Derm: Skin is intact, Skin is dry, Skin is pale, Skin temperature is warm. 10:23 Reassessment: Pt now stating that she feel different than on arrival. When asked what jo3 had changed pt stated that she feels dizzy and nauseated and "I don't know where I am". 10:38 Reassessment: While having IV SL attempted, pt appeared to lose consciousness and jo3 became rigid and eyes rolled back and then fixed on ceiling. Pt then started mild tremors and pulled right arm u[p towards her face. Breathing remained regular and rhythmic and )2 saturation did not fall below 99%. Pulse rate mildly increased on monitor but with much artifact. Dr Gifford called to room for pseudoseizure activity in which pt reoriented at physician request and stopped all seizure activity . 12:04 General: Appears in no apparent distress, comfortable, Behavior is cooperative. jo3 Neurological: Level of Consciousness is awake, alert, Oriented to person, place, time. Cardiovascular: Rhythm is sinus rhythm No ectopy. Respiratory: Airway is patent Respiratory effort is even, unlabored. Derm: Skin is intact, Skin is dry, Skin is pale, Skin temperature is warm. Vital Signs: 10:10 BP 120 / 69; Pulse 104; Resp 18; Temp 98.6(T); Pulse Ox 100% on R/A; Weight 61.23 kg; dem1 Height 5 ft. 7 in. (170.18 cm); Pain 8/10; 10:43 BP 107 / 64 (auto/); jo3 10:43 Pulse 84 MON; Pulse Ox 100% ; jo3 10:43 BP 116 / 66; Pulse 82; Resp 16; Temp 98.5(O); Pulse Ox 100% on R/A; jo3 10:58 BP 96 / 62 (auto/); jo3 10:58 Pulse 86 MON; Pulse Ox 100% ; jo3 11:13 BP 93 / 59 (auto/); jo3 11:13 Pulse 82 MON; Pulse Ox 100% ; jo3 11:43 BP 119 / 72 (auto/); jo3 11:43 Pulse 86 MON; Pulse Ox 100% ; jo3 10:10 Body Mass Index 21.14 (61.23 kg, 170.18 cm) dem1 Vitals: 10:10 Log In Time: December 14, 2016 at 10:07. RN notified that patient meets Red Flag dem1 criteria. ED Course: 10:09 Patient visited by Juan Pablo Austin. dem1 10:09 Patient moved to Waiting dem1 10:10 Troy Nino MD is Private Physician. dem1 10:11 Patient visited by Juan Pablo Austin. dem1 10:14 Lucía Sosa, STACIE is Primary Nurse. dwg 10:14 Patient moved to 5 dwg 10:15 Triage Initiated dwg 10:22 EKG done. (by ED staff). Reviewed by Ben Gifford MD. jrd 10:30 Ben Gifford MD is Attending Physician. pc 10:33 Patient visited by Ben Gifford MD. pc 10:40 Inserted saline lock: 20 gauge in right antecubital area. Labs drawn. (by ED staff). jo3 Sent per order to lab. 10:52 [facility] Payment Agreement was scanned into [employer] and attached to record. lg 11:34 Maryana Boykin FNP is Referral Physician. pc 12:04 The patient / caregiver is instructed regarding the plan of care and ED course. jo3 12:04 Discontinued IV lock intact, bleeding controlled, pressure dressing applied, No jo3 redness/swelling at site. No procedures done that require assistance. 16:07 EKG-ADULT Returned. EDMS Administered Medications: 11:38 Drug: Potassium Chloride 40 mEq [potassium chloride ER 10 mEq tablet,extended release jo3 (4 tabs)] Route: PO; Order Results: Lab Order: Fingerstick Blood Sugar; SPEC'M 12/14/16 10:20 Test: BEDSIDE GLUCOSE; Value: 148; Range: 70-105; Abnormal: Above high normal; Units: MG/DL; Status: F Lab Order: MED Profile; SPEC'M 12/14/16 10:35 Test: GLUCOSE, FASTING; Value: 122; Range: 70-105; Abnormal: Above high normal; Units: MG/DL; Status: F Test: BLOOD UREA NITROGEN; Value: 10; Range: 7-18; Units: MG/DL; Status: F Test: CREATININE FOR GFR; Value: 0.70; Range: 0.55-1.02; Units: MG/DL; Status: F Test: GLOMERULAR FILTRATION RATE; Value: > 60.0; Range: >60; Status: F Test: SODIUM LEVEL; Value: 140; Range: 136-145; Units: MEQ/L; Status: F Test: POTASSIUM SERUM; Value: 3.3; Range: 3.5-5.1; Abnormal: Below low normal; Units: MEQ/L; Status: F Test: CHLORIDE LEVEL; Value: 104; Range: 98-107; Units: MEQ/L; Status: F Test: CARBON DIOXIDE LEVEL; Value: 27; Range: 21-32; Units: MEQ/L; Status: F Test: ANION GAP; Value: 9; Range: 8-16; Units: MEQ/L; Status: F Test: CALCIUM LEVEL; Value: 8.2; Range: 8.5-10.1; Abnormal: Below low normal; Units: MG/DL; Status: F Test Note: ; Units are mL/min/1.73 m2 Chronic Kidney Disease Staging per NKF: Stage I & II GFR >=60 Normal to Mildly Decreased Stage III GFR 30-59 Moderately Decreased Stage IV GFR 15-29 Severely Decreased Stage V GFR <15 Very Little GFR Left ESRD GFR <15 on APPEALS RN Radiology Order: EKG-ADULT Test: EKG-ADULT REASON FOR EXAMINATION: Chest Pain; Stationary ECG Study; [facility] - ED; ; Test Date: 2016-12-14; Pat Name: CLAUDE RICHMOND Department:; Room: -; Gender: F Biomass Facilitator: neil; : 1980 Requested By: Ben Bullard; Order Number: [id number] Reading MD: Charmaine Hill; Measurements; Intervals [place]; Rate: 85 P: 60; UT: 111 QRS: 57; QRSD: 77 T: 40; QT: 367; QTc: 438; Interpretive Statements; SINUS RHYTHM WITH SHORT UT INTERVAL; NSTTW ABNORMALITY; INCREASED RATE 05/27/16; Electronically Signed On 12-14-2016 15:24:15 EST by Charmaine Hill; Outcome: 11:35 Discharge ordered by Provider. pc 12:27 Patient left the ED. jo3 Signatures: Dispatcher [employer] Ben Michel MD MD pc Greene, Daniel, RN RN dwg Ganter, LoriLee, Reg Reg lg [place], Jennifer, RN RN joJuan Pablo Sarkar Joseph, PCA PCA jrtran Chart Complete MTDD
--- NOTE | 2016-12-16 22:34 | EDDOCDS ---
Physician Documentation [facility] Name: Claude Diaz Age: 36 yrs Sex: Female : 1980 Arrival Date: 12/14/2016 Time: 10:07 Bed 5 Private MD: Troy Nino Disposition: 12/14 11:32 Critical Care: Critical care not applicable. pc Disposition: 12/14/16 11:35 Discharged to Home/Self Care. Impression: Opioid dependence with withdrawal, Chronic pain syndrome, Conversion disorder with seizures or convulsions - Pseudoseizures, Unspecified protein-calorie malnutrition - chronic, Hypokalemia - mild, treated. - Condition is Stable. - Discharge Instructions: Chronic Pain. - Medication Reconciliation, Local Pharmacy Hours form. - Follow up: Maryana Boykin FNP; When: As previously arranged; Reason: Continuance of care. - Problem is new. - Symptoms have improved. HPI: 10:39 This 36 yrs old Female presents to ER via Wheelchair with complaints of pc Palpitations. 10:39 The history is obtained from the patient. She complains of having palpitations and a pc fast heart rate since this morning. She denies any chest pain, SOB. She has a long history of pseudoseizures and chronic pain, overusing her medications regularly. She denies the same, despite her EMR showing a report from the [facility] from only 4 weeks ago describing the same. She was using 6 tablets of oxycodone 15mg daily instead of 5 per day as written. Per [facility], a new 7 day RX for oxycodone 10mg was sent in today by the Pain Clinic, due to her running out of her initial RX some 4 days or 20 pills short. She denies any of these events occurring despite the proof. During questioning, she had seizure-like activity that was stopped with sternal rubbing and she was not post-ictal, and she immediately requested "benzo's" for the activity. Her pulse has been 90-104 throughout the ED visit despite her describing it as racing . 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 Historical: - Allergies: Fentanyl (tachcardia)transdermal; SULFA (SULFONAMIDES) (Anaphylaxis); - Home Meds: 1. fluoxetine 20 mg Oral cap 1 cap once daily (Last dose: 12/14/2016) 2. Soma 350 mg Oral tab 1 tab 3 times per day 3. lorazepam 1 mg Oral tab 1 tab as needed 4. venlafaxine 75 mg oral tr24 1 tab once daily 5. Ambien 10 mg Oral tab 1 tab nightly 6. Promethegan 25 mg Rectal supp q8hr PRN for nausea 7. oxycodone 10 mg Oral tab 1 tab every 4 hours - PMHx: Depression; herniated disc; Pancreatitis; - PSHx: Gastric bypass 2010; Hysterectomy; Tonsillectomy; Insertion of G-tube with subsequent removal 2013; - The history from nurses notes was reviewed: and I agree with what is documented. - Social history: Smoking status: Patient states was never smoker of tobacco. No barriers to communication noted. - : Unable to assess if pt is on anticoagulants. Unable to Verify Home Med List with the patient / caregiver. Note Will contact [employer] [facility] [employer] for complete list. - Hospitalizations: : No recent hospitalization is reported. - Exposure Risk Screening:: None identified. - Immunization history:: All immunizations up-to-date. - Family history: Not pertinent. - Social history:: the patient uses illicit drugs, including RX drug abuse - opioids, Soma and BDZs. [employer]: 10:19 LMP N/A - Hysterectomy dwg ROS: 10:39 All systems are negative except as listed. pc Exam: 10:39 General Appearance: no acute distress, alert, cachectic . pc 10:39 EENT: ears, nose and throat normal, pharynx normal, mucous membranes moist pupils 7mm. 10:39 Neck: The exam reveals no acute abnormalities. ROM is normal and painless. No nuchal rigidity is noted.. 10:39 Respiratory: no respiratory distress, normal breath sounds. 10:39 CVS: regular pulse rate, regular rhythm, normal S1 and S2, no murmurs, strong peripheral pulses. 10:39 Abdomen: soft, non-tender. 10:39 Back: normal inspection. 10:39 Skin: skin color is normal, warm, dry. 10:39 Extremities: The extremities have a grossly normal appearance. 10:39 Neuro: oriented x 3, cranial nerves normal as tested, no motor deficits, no sensory deficits. 10:39 Psych: normal mood. Vital Signs: 10:10 BP 120 / 69; Pulse 104; Resp 18; Temp 98.6(T); Pulse Ox 100% on R/A; Weight 61.23 kg / dem1 134.99 lbs; Height 5 ft. 7 in. (170.18 cm); Pain 8/10; 10:43 BP 107 / 64 (auto/); jo3 10:43 Pulse 84 MON; Pulse Ox 100% ; jo3 10:43 BP 116 / 66; Pulse 82; Resp 16; Temp 98.5(O); Pulse Ox 100% on R/A; jo3 10:58 BP 96 / 62 (auto/); jo3 10:58 Pulse 86 MON; Pulse Ox 100% ; jo3 11:13 BP 93 / 59 (auto/); jo3 11:13 Pulse 82 MON; Pulse Ox 100% ; jo3 11:43 BP 119 / 72 (auto/); jo3 11:43 Pulse 86 MON; Pulse Ox 100% ; jo3 10:10 Body Mass Index 21.14 (61.23 kg, 170.18 cm) dem1 MDM: 10:17 ECG WITH READING ER PHYS+CARDIAG ordered. EDMS 10:29 Fingerstick Blood Sugar Ordered. EDMS 10:37 Fingerstick Blood Sugar Reviewed. pc 10:37 Data reviewed: The patient's [facility] [employer] records were accessed. pc 10:39 Differential Diagnosis: dilated pupils, pulse 90-105 with proven history of overusing pc opioids requiring a new RX 4 days early just today suggests opioid withdrawal; pseudoseizure activity requesting BDZs. Plan: review triaged EKG, d./w PMC provider. Test interpretation: EKG. 10:41 Financial registration complete. lg 10:52 [facility] Payment Agreement was scanned into [employer] and attached to record. lg 10:59 MED Profile Ordered. EDMS 11:32 MED Profile Reviewed. pc 11:32 Potassium Chloride Extended Release Tablet 40 mEq PO once ordered. pc 11:32 Data reviewed: old medical records, vital signs, nurses notes, EKG(s), lab test pc results. Test interpretation: LAB - all labs as ordered have been reviewed, interpreted and considered in the overall management of the clinical presentation;. The patient has been re-examined and re-evaluated. The patient's symptoms have markedly improved after treatment. Physician consultation: Dr. Maryana Boykin STONECUTTER ASSISTANT regarding patient's condition, and advises the medications/treatment as provided. and agrees with the treatment provided and advises the discharge plans as outlined. Disposition: The historical points, examination findings, and any diagnostic results supporting the provided diagnosis, were discussed with the patient or legal guardian. The need for outpatient follow up with the provider listed on their discharge instructions was discussed. They were encouraged to return to [facility], or the nearest ED, if symptoms worsen/persist, or for any other questions/concerns. EC:39 Rate is 85 beats/min. Rhythm is regular, Normal Sinus Rhythm. QRS [place] is Normal. [place] pc interval is normal. QRS interval is normal. QT interval is normal. No Q waves. T waves are Normal. No ST changes noted. Clinical impression: Normal Sinus Rhythm. Administered Medications: 11:38 Drug: Potassium Chloride 40 mEq [potassium chloride ER 10 mEq tablet,extended release jo3 (4 tabs)] Route: PO; Signatures: Dispatcher [employer] EDMS Ben Gifford MD MD pc Greene, Daniel, RN RN dwg Ganter, LoriLee, Reg [facility] Lucía Drake RN RN jo3 The chart was reviewed and I authenticate all verbal orders and agree with the evaluation and treatment provided.Attachments: 10:52 [facility] Payment Agreement lg Chart Complete MTDD
== END 2016-12-14 12:27 | disposition home or self-care (01) ==
LOC: M ED 10:07
DX: F11.23 Opioid dependence with withdrawal (principal); G89.4 Chronic pain syndrome; F44.5 Conversion disorder with seizures or convulsions; E46 Unspecified protein-calorie malnutrition; E87.6 Hypokalemia; F32.9 Major depressive disorder, single episode, unspecified; M51.9 Unspecified thoracic, thoracolumbar and lumbosacral intervertebral disc disorder; Z87.19 Personal history of other diseases of the digestive system; Z79.899 Other long term (current) drug therapy; Z88.2 Allergy status to sulfonamides; Z88.5 Allergy status to narcotic agent

== ENCOUNTER → 2016-12-14 | Outpatient (CLI) | payer OTHER ==
[~2016-12-14] MED LIST changes: -NORC1TAB4 PO; +NORC5TAB PO
--- NOTE | 2016-12-15 00:38 | ECWPNPC ---
PATIENT NAME: NI RICHMOND : 1980 GENDER: FEMALE VISIT DATE: 12/14/2016 DISCHARGE DATE: 12/14/16 1000 VISIT LOCKED DATE TIME: PHYSICIAN: LUIS BRANDON RESOURCE: LUIS BRANDON REASON FOR APPOINTMENT 1. STOMACH/BACK HISTORY OF PRESENT ILLNESS HISTORY OF PRESENT ILLNESS: PAIN THE PATIENT DESCRIBES THE PAIN... FALL RISK SCREENING: SCREENING :NO FALLS IN THE PAST YEAR TODAY'S VISIT: NOTES: WAS SEEN BY DR DRAKE AT [facility]. WAS TOLD MOST OF HER BOWEL WAS NECROTIC AND THEY WANT TO PUT IN A J TUBE AND THAT SHE IS TO BE SCHEDULED FOR SURGERY. HE WANTS HER TO GO ON INJECTION. WAS NOT ABLE TO TOLERATE FENTANYL THIS WAS TOO STRONG AND AFFECTED BREATHING AND BUTRANS CAUSE SKIN DIFFICULTY. HAS NOT TAKEN ANY PAIN MEDS IN A FEW DAYS. CURRENT MEDICATIONS TAKING PROMETHAZINE HCL 25 MG TABLET 1 TABLET NEEDED ORALLY Q 6 HRS PRN NAUSEA TAKING ABILIFY 10 MG TABLET 1 TABLET ORALLY ONCE A DAY TAKING ZOLPIDEM TARTRATE 10 MG TABLET 1 TABLET AT BEDTIME NEEDED ORALLY BEFORE BEDTIME MDD=1 TAKING SOMA 350 MG TABLET 1 TABLET ORALLY THREE TIMES A DAY NEEDED FOR SPASM MDD=3 TAKING PROMETHAZINE HCL 25 MG SUPPOSITORY 1 SUPPOSITORY NEEDED RECTAL EVERY Q 8 HRS PRN NAUSEA TAKING OXYCODONE HCL 15 MG TABLET 1 TABLET NEEDED ORALLY EVERY 4 HRS PRN PAIN MDD=5 TAKING FLUOXETINE , NOTES: STARTED ON THIS MED 20 MG NOT-TAKING EFFEXOR XR 75 MG CAPSULE EXTENDED RELEASE 24 HOUR 1 CAPSULE WITH FOOD ORALLY ONCE A DAY, NOTES: IS TAPERING OFF THIS MED NOT-TAKING BENTYL 10 MG CAPSULE 1 CAPSULE ORALLY FOUR TIMES A DAY NOT-TAKING FLUOXETINE NOT-TAKING CYCLOBENZAPRINE HCL 10 MG TABLET 1 TABLET ORALLY THREE TIMES A DAY NOT-TAKING SOMA 350 MG TABLET 2 TABLET NEEDED ORALLY 2 TIMES A DAY MEDICATION LIST REVIEWED AND RECONCILED WITH THE PATIENT PAST MEDICAL HISTORY DEPRESSION/ANXIETY HYDRATION ISSUES HX OF MRSA BACK PROBLEM ALLERGIES SULFA (FOR ALLERGY USE ONLY): ANAPHYLAXIS: ALLERGY FENTANYL: HEART RATE FLUCTUATIONS: ALLERGY SOCIAL HISTORY GENERAL: TOBACCO USE ARE YOU A: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 NEW PATIENT PAIN DIARY TODAY'S VISITNOTES FROM 0-10, WHAT LEVEL IS YOUR PAIN TODAY?0 PAIN CLINIC PFS, CLERGY, PUBLIC HEALTH REFERRALS PFS REFERRAL NEEDED?NO CLERGY REFERRAL NEEDED?NO PUBLIC HEALTH REFERRAL NEEDED?NO WAS THE PROVIDER NOTIFIED OF ANY PERTINENT INFO?NO PFS REFERRAL NEEDED?NO CLERGY REFERRAL NEEDED?NO PUBLIC HEALTH REFERRAL NEEDED?NO WAS THE PROVIDER NOTIFIED OF ANY PERTINENT INFO?NO REVIEW OF SYSTEMS CONSTITUTIONAL: ANY CHANGE IN YOUR MEDICAL CONDITION? NO . CHILLS NO . FEVER NO . INFECTION: DO YOU HAVE NEW INFECTIONS? NO . DO YOU HAVE HISTORY OF MRSA? NO . MUSCULOSKELETAL: ANY NEW PATTERNS OF PAIN OR NUMBNESS? NO . GASTROENTEROLOGY: ANY NEW CHANGE IN BOWEL CONTROL? FREQUENT DIARRHEA. . GENITOURINARY: ANY NEW CHANGE IN BLADDER CONTROL? NO . IS THERE A CHANCE YOU COULD BE ? NO . HEMATOLOGY/LYMPH: DO YOU TAKE ANY BLOOD THINNERS? (FOR EXAMPLE- COUMADIN, PLAVIX, AGGRENOX, PLATEL, PRADAXA, OR XARELTO) NO . WHEN WAS YOUR LAST DOSE? DATE: TIME: . NEUROLOGY: HAVE YOU FALLEN IN THE PAST 6 MONTHS? NO . ANY NEW EXTREMITY NUMBNESS OR WEAKNESS? NO . CARDIOLOGY: DO YOU HAVE A PACEMAKER OR DEFIBRILLATOR? NO . RESPIRATORY: HAVE YOU BEEN SICK IN THE PAST WEEK? STATES HAD RECENT STREP THROAT ALONG WITH FAMILY . FEVER NO . FLU LIKE SYMPTOMS? NO . COUGH NO . INTEGUMENTARY: DO YOU HAVE ANY RASHES OR OPEN SORES? NO . ALLERGIC/IMMUNO: ARE YOU ALLERGIC TO SHELLFISH OR IV DYE? NO . ANY NEW ALLERGIES? NO . PSYCHIATRIC: DO YOU HAVE THOUGHTS OF HURTING YOURSELF OR SOMEONE ELSE? NO . ARE YOU ABUSED, NEGLECTED, OR IN AN UNSAFE ENVIRONMENT? NO . ENDOCRINOLOGY: ARE YOU DIABETIC? NO . OTHER: DO YOU NEED ANY PRESCRIPTIONS? YES . IF YES, PLEASE LIST: ____ . ANY NEW PROBLEMS WITH YOUR MEDICATIONS? NO . WHEN DID YOU LAST EAT? ____ . WHEN DID YOU LAST DRINK? ____ . WHAT DID YOU LAST DRINK? ____ . NAME OF PERSON DRIVING YOU HOME? ____ . DO YOU HAVE ANY OTHER QUESTIONS OR CONCERNS NO . PSYCHOLOGY: DEPRESSION HAS APPOINTMENT WITH DR RAMOS. MANY FAMILY STRESSORS . REVIEWED BY: PROVIDER: LUIS DALEY . VITAL SIGNS WT 140 LBS, HT 66 IN, BMI 22.59 INDEX, BP 106/65 MM HG, HR 109 /MIN, RR 16 /MIN, TEMP 97.1 F, OXYGEN SAT % 100%, REVIEWED BY: KG. EXAMINATION GENERAL EXAMINATION: GENERAL APPEARANCE:COLOR IS PALE, BUCCAL/MUCOUS MEMBRANES DRY. PSYCHALERT , ORIENTED X 3 , ANXIOUS. LUNGS:DECREASED AIR ENTRY AT BASES, NO WHEEZES, RALES OT RHONCHI. HEART:HEART RATE REGULAR, RAPID. ABDOMEN:TENDER TO PALPATION, MINIMAL DISTENTION, BOWEL SOUNDS QUIET. ASSESSMENTS EPIGASTRIC PAIN - R10.13 (PRIMARY) CHRONICALLY ON OPIATE THERAPY - Z79.899 TREATMENT EPIGASTRIC PAIN STOP OXYCODONE HCL TABLET, 15 MG, 1 TABLET NEEDED, ORALLY, EVERY 4 HRS PRN PAIN MDD=5 START OXYCODONE HCL TABLET, 10 MG, 1 TABLET NEEDED, ORALLY, EVERY 4 HRS PRN PAIN MDD=6, 7 DAYS, 42, REFILLS 0 NOTES: ISTOP REGISTRY REVIEWED . THIS DEMONSTRATES NO OXYCODONE. NO ILLICIT SUBSTANCES NOTED. CLINICAL NOTES: DISCUSSSED WITH PATIENT THAT I MUST HAVE THE NOTES WITH THE TREATMENT PLAN FROM [facility]. STRONGLY RECOMMENDED THAT SHE CONTACT DR RAMOS FOR AN EARLIER APPOINTMENT. PT IS ASKING FOR INJECTABLE MEDS - WE ARE NOT ABLE TO ACCOMADATE THIS TYPE OF THERAPY. I DID OFFER REFERRAL TO [facility] HIGHER LEVEL OF CARE FOR PAIN SERVICES. SHE DECLINED THIS OPTION. DID BRIEFLY DISCUSS DORSAL COLUMN STIM FOR ABDOMINAL PAIN CONTROL, HOWEVER THE SURGICAL ISSUES NEED TO BE RESOLVED FIRST. STATES THAT DR DRAKE GAVE HER A NEW SCRIPT FOR PHENERGAN SUPPOSITORIES. WILL DECREASE DOSE OF OXYCODONE TO 10 MG, MAX 6 PER DAY AND I MUST SEE HER IN 1 WEEK, WITH ALL OF HER PAIN MEDS. WILL DO UTOX AT THAT TIME. PROCEDURE CODES FA211 ESTABILISHED PATIENT [facility] CHARGE DISPOSITION & COMMUNICATION FOLLOW UP 1 WEEK FIRST OF MORNING (REASON: BERT DR DRAKE [facility] EVAL AND DISCHARGE SUMMARY) ELECTRONICALLY SIGNED BY RYLEY CROOK ON 12/14/2016 AT 10:08 AM EST DISCLAIMER : THIS IS A VISIT SUMMARY EXTRACTED FROM THE [employer] CHART. IT IS NOT A COPY OF THE [employer] PROGRESS NOTE. HAILEY
== END ==
LOC: M PAIN 09:00
PROVIDERS: ATTEND Nurse Practitioner Family
DX: R10.13 Epigastric pain (principal); M79.1 Myalgia; Z79.891 Long term (current) use of opiate analgesic; Z79.899 Other long term (current) drug therapy; F32.9 Major depressive disorder, single episode, unspecified; F41.9 Anxiety disorder, unspecified; Z88.2 Allergy status to sulfonamides; Z88.8 Allergy status to other drugs, medicaments and biological substances

== ENCOUNTER 2016-12-16 11:17 | Emergency (ER) | payer BC, OTHER ==
[2016-12-16 12:03] LABS: BASO % 0.8 % (0.0-1.0); EOS # 0.2 K/mm3 (0.0-0.50); EOS % 3.4 % (0.0-3.0); LARGE UNSTAINED CELL # 0.1 K/mm3 (0.0-0.4); LARGE UNSTAINED CELL % 2.1 % (0.0-4.0); LYMPH # 1.6 K/mm3 (1.5-4.5); LYMPH % 30.6 % (24.0-44.0); MEAN CORPUSCULAR HEMOGLOBIN 22.2 pg (27.0-33.0); MEAN CORPUSCULAR HGB CONC 29.7 g/dl (32.0-36.5); MEAN CORPUSCULAR VOLUME 74.9 fl (80.0-96.0); MONO # 0.2 K/mm3 (0.0-0.8); MONO % 4.6 % (0.0-5.0); NEUTROPHILS # 3.1 K/mm3 (1.8-7.7); NEUTROPHILS % 58.4 % (36.0-66.0); PLATELET COUNT, AUTOMATED 319 k/mm3 (150-450); RED CELL DISTRIBUTION WIDTH 16.3 % (11.5-14.5); WHITE BLOOD COUNT 5.3 K/mm3 (4.0-10.0)
[2016-12-16 12:06] LABS: ADD MORPHOLOGY? YES
[2016-12-16 12:23] LABS: ANION GAP 9 MEQ/L (8-16); BLOOD UREA NITROGEN 5 MG/DL (7-18); CALCIUM LEVEL 8.1 MG/DL (8.5-10.1); CARBON DIOXIDE LEVEL 27 MEQ/L (21-32); CHLORIDE LEVEL 107 MEQ/L (98-107); CREATININE FOR GFR 0.77 MG/DL (0.55-1.02); GLOMERULAR FILTRATION RATE > 60.0 (>60); GLUCOSE, FASTING 97 MG/DL (70-105); POTASSIUM SERUM 3.9 MEQ/L (3.5-5.1); SODIUM LEVEL 143 MEQ/L (136-145)
[2016-12-16 12:27] LABS: OVALOCYTES 1+; POIKILOCYTOSIS 1+
[2016-12-16 12:28] LABS: ANISOCYTOSIS 1+; HYPOCHROMASIA 1+; MICROCYTOSIS 1+
--- NOTE | 2016-12-16 12:58 | REP ---
Clinical: Syncope . Comparison: 08/31/2014 . Findings: The ventricles, sulci, and cisterns are normal in position and appearance. Hinton-white differentiation is maintained. No acute intracranial hemorrhage, mass/mass effect, pathology or trauma/injury. No evidence for acute infarction. No extra-axial fluid collection. Calvarium is intact. Paranasal sinuses and mastoid air cells are clear. Impression: Normal noncontrast head CT. No evidence for acute intracranial pathology or trauma/injury. Signed by Michael James MD 12/16/2016 12:49 P
[2016-12-16] MEDS ORDERED: METOCLOPRAMIDE INJ 10MG/2ML VIAL (J2765) As Ordered ONE (13:04)
[2016-12-16] MEDS ORDERED: KETOROLAC 30 MG/ML VIAL (J1885) As Ordered ONE (13:04)
--- NOTE | 2016-12-16 13:04 | REP ---
Clinical: Shortness of breath . Comparison: 05/27/2016 . Technique: PA and lateral. Findings: The mediastinum and cardiac silhouette are normal. The lung snell are clear and without acute consolidation, effusion, or pneumothorax. The skeletal structures are intact and normal. Impression: 1. No acute cardiopulmonary process. Signed by Michael James MD 12/16/2016 12:56 P
[2016-12-16 13:14] LABS: CONTROL LINE INT CTR LINE PRESENT; METHADONE URINE NEGATIVE (NEGATIVE); TRICYCLIC ANTIDEPRESS URINE NEGATIVE (NEGATIVE)
--- NOTE | 2016-12-16 14:19 | EDDOCDS ---
Nurse's Notes [facility] Name: Claude Diaz Age: 36 yrs Sex: Female : 1980 Arrival Date: 12/16/2016 Time: 11:17 Bed 19 Private MD: Diagnosis: Conversion disorder with seizures or convulsions Presentation: 12/16 11:21 Presenting complaint: EMS states: hx pseudoseizures---today seen here Fri. for ms2 dehydration and palpations. Today went rigid and had minor tremors for 15 seconds ---could respond at one point---went to zero strength per EMS---140 systolic---HR 120 in this "relaxed state". Suicide/Homicide risk assessment- the patient denies having any suicidal and/or homicidal ideations and does not present with any other emotional, behavioral or mental health complaints. Status: Patient is not a human service coordinator or dependent. Transition of care: patient was not received from another setting of care. 11:21 Acuity: YAKELIN Level 3 ms2 11:21 Method Of Arrival: Ambulance ms2 11:37 Adult Sepsis Screening: The patient does not have new or worsening altered mentation. ms2 Patient's respiratory rate is less than 22. Systolic blood pressure is greater than 100. Patient has a qSOFA score of 0- Negative Sepsis Screen. 11:51 Presenting complaint: Patient states: pt states symptoms began enroute to see ms2 parents-was driving self in car-did pull to side of road and called EMS. Triage Assessment: 11:36 General: Appears distressed, Behavior is cooperative. General: Behavior is anxious. ms2 Pain: Location: epigastric area Pain currently is 8 out of 10 on a pain scale. HIV screening NA for this visit Offered previously. The patient is triaged at the bedside. See Assessment in Nurses Notes section of ED record. Neurological: Level of Consciousness is awake, alert, obeys commands. Cardiovascular: Rhythm is sinus tachycardia No ectopy. Respiratory: Airway is patent Respiratory effort is even, unlabored, Respiratory pattern is regular, symmetrical. GI: Abdomen is flat, non- distended. Derm: Skin is pink, warm & dry. Musculoskeletal: Range of motion intact in all extremities. Historical: - Allergies: Fentanyl (tachcardia)transdermal; SULFA (SULFONAMIDES) (Anaphylaxis); - Home Meds: 1. Ambien 10 mg Oral tab 1 tab nightly (Last dose: Unknown) 2. fluoxetine 20 mg Oral cap 1 cap once daily (Last dose: 12/16/2016 09:00) 3. lorazepam 1 mg Oral tab 1 tab as needed (Last dose: 12/16/2016 10:00) 4. oxycodone 10 mg Oral tab 1 tab every 4 hours (Last dose: 12/16/2016 07:00) 5. Promethegan 25 mg Rectal supp q8hr PRN for nausea (Last dose: Unknown) 6. Soma 350 mg Oral tab 1 tab 3 times per day (Last dose: Unknown) 7. venlafaxine 75 mg oral tr24 1 tab once daily (Last dose: 12/16/2016 10:00) - PMHx: Depression; herniated disc; Pancreatitis; gastroparesis; - PSHx: lower lumbar fusion; Gastric Bypass; Cholecystectomy; Hysterectomy; - Social history: Smoking status: Patient states was never smoker of tobacco. No barriers to communication noted, The patient speaks fluent [place]. - : The pt / caregiver states he / she is not on anticoagulants. Home medication list is obtained from the patient, a discharge med list. - Exposure Risk Screening:: None identified. Screenin:18 Infection Control. deg 11:35 Screening information is obtained from the patient. Fall risk: No risks identified. ms2 Assistance ADL's: requires no assistance with activities of daily living. Abuse/DV Screen: The patient / caregiver reports he/she is: not in a situation that causes fear, pain or injury. Nutritional screening: No deficits noted. Advance Directives: There is an active Power of Pulmonary Fellow, ---abbey. home support is adequate. Assessment: 11:37 General: see triage note. ms2 11:50 General: Appears pt more relaxed, but remains anxious -both parents here. ms2 12:28 General: Appears in no apparent distress, comfortable, Behavior is cooperative, anxiety ms2 lessening---hr--108-no psuedoseizures-no crying -extremities not clenched. Neurological: No deficits noted. Cardiovascular: Rhythm is sinus tachycardia No ectopy. Respiratory: Respiratory effort is even, unlabored. Derm: Skin is pink, warm & dry. Musculoskeletal: No deficits noted. 12:59 General: sulfonator operator elsner aware pt requesting pain meds for stomach and back (-05/30). ms2 13:12 General: Appears in no apparent distress, pt medicated per order. Behavior is ms2 cooperative, parents with pt. Neurological: No deficits noted. Cardiovascular: Rhythm is sinus tachycardia rate 103. Respiratory: No deficits noted. Derm: Skin is pink, warm & dry. Musculoskeletal: No deficits noted. 14:15 General: Appears in no apparent distress, ambulatory to BR gait steady. Pain: Pain jjr currently is 4 out of 10 on a pain scale. Respiratory: No deficits noted. Derm: Skin is pink, warm & dry. Vital Signs: 11:24 BP 125 / 74 (auto/); jjr 11:26 Pulse 120 MON; Pulse Ox 99% ; jjr 11:28 BP 138 / 76 (auto/); jjr 11:28 Pulse 118 MON; Pulse Ox 96% ; jjr 11:33 BP 125 / 74; Pulse 121; Resp 18; Temp 99.0(TE); Pulse Ox 98% on R/A; Weight 56.7 kg rn1 (R); Height 5 ft. 7 in. (170.18 cm) (R); Pain 8; 11:43 BP 125 / 62 (auto/); jjr 11:43 Pulse 112 MON; Pulse Ox 98% ; jjr 12:13 BP 124 / 78 (auto/); jjr 12:13 Pulse 98 MON; Pulse Ox 100% ; jjr 12:28 BP 115 / 72 (auto/); jjr 12:28 Pulse 100 MON; Pulse Ox 100% ; jjr 12:58 BP 116 / 76 (auto/); jjr 12:58 Pulse 98 MON; Pulse Ox 99% ; jjr 13:13 BP 111 / 65 (auto/); jjr 13:13 Pulse 92 MON; Pulse Ox 100% ; jjr 13:16 BP 111 / 65; Pulse 86; Resp 20 S; Pulse Ox 100% on R/A; ms2 13:28 BP 104 / 62 (auto/); jjr 13:28 Pulse 92 MON; Pulse Ox 100% ; jjr 13:43 BP 107 / 60 (auto/); jjr 13:43 Pulse 90 MON; Pulse Ox 100% ; jjr 13:58 BP 111 / 71 (auto/); jjr 13:58 Pulse 94 MON; Pulse Ox 100% ; jjr 14:09 BP 111 / 63 (auto/); jjr 14:11 Pulse 84 MON; Resp 18; Temp 96.7(O); Pulse Ox 100% on R/A; Pain 4/10; jjr 11:33 Body Mass Index 19.58 (56.70 kg, 170.18 cm) rn1 Vitals: 14:17 Log In Time N/A - ambulance arrival. [facility] ED Course: 11:17 Patient visited by Bailey Ashley, Patient Financial Services Manager. deg 11:17 Patient moved to Waiting deg 11:18 Byorn Ugarte,RN is Primary Nurse. dls 11:18 Patient moved to 19 dls 11:20 Patient visited by Byron Ugarte,STACIE. ms2 11:25 Triage Initiated ms2 11:29 Patient visited by Byron Ugarte,STACIE. ms2 11:38 The patient / caregiver is instructed regarding the plan of care and ED course. Patient ms2 has correct armband on for positive identification. Placed in gown. Bed in low position. Call light in reach. Side rails up X2. Adult w/ patient. Seizure precautions initiated. monitoring and evaluation advisor on. Pulse ox on. NIBP on. 11:45 Inserted saline lock: 20 gauge in right antecubital area The patient tolerated the ms2 procedure well. No procedures done that require assistance. 11:50 Patient visited by Byron Ugarte RN. ms2 11:50 BMP Sent. ms2 11:50 CBC with Diff Sent. ms2 12:09 Yohannes Pierce FNP is PHCP. ke 12:09 Patient visited by Yohannes Pierce FNP. ke 12:09 Patient visited by Yohannes Pierce FNP. ke 12:30 The patient / caregiver is instructed regarding the plan of care and ED course. Cardiac ms2 monitor on. Pulse ox on. NIBP on. 12:30 IV is patent, is intact, is free of redness or swelling. solution is infusing as ms2 ordered. 12:45 EKG done. (by ED staff). Reviewed by Yohannes DALEY. rn1 12:46 Patient visited by Yohannes Pierce FNP. ke 12:59 Urinalysis Sent. ms2 12:59 Urine Toxicology Sent. ms2 13:04 CT Head Without Contrast Returned. EDMS 13:17 Patient visited by Yohannes Pierce FNP. ke 13:17 The patient / caregiver is instructed regarding the plan of care and ED course. Cardiac ms2 monitor on. Pulse ox on. NIBP on. 13:18 IV is patent, is intact, is free of redness or swelling. solution is infusing as ms2 ordered. 13:37 Chest, 2 View (pa\\E\\lat) Returned. EDMS 13:40 Susana Hein MD is Referral Physician. ke 14:16 Discontinued lock intact, bleeding controlled, pressure dressing applied, No jjr redness/swelling at site. Administered Medications: 12:27 Drug: NS 0.9% 1000 ml [sodium chloride 0.9 % intravenous solution] Route: IV; Rate: ms2 bolus; Site: right antecubital; 14:13 Follow up: IV Status: Infusion discontinued; IV Intake: 500ml jjr 13:12 Drug: ketorolac 30 mg [ketorolac 30 mg/mL (1 mL) injection solution (1 mL)] Route: IVP; ms2 Site: right antecubital; 13:16 Follow up: BP 111 / 65; Pulse 86 bpm; Resp 20 bpm Spontaneous; Pulse Ox 100% RA ms2 13:14 Drug: Metoclopramide 10 mg [metoclopramide 5 mg/mL injection solution] Route: IV; Rate: ms2 40 mg/hr; Infused Over: 15 mins; Site: right antecubital; 13:40 Follow up: IV Status: Completed infusion jjr Intake: 14:13 IV: 500.00ml; Total: 500.00ml. jjr Order Results: Lab Order: CBC with Diff; SPEC'M 12/16/16 11:39 Test: WHITE BLOOD COUNT; Value: 5.3; Range: 4.0-10.0; Units: K/mm3; Status: F Test: RED BLOOD COUNT; Value: 4.23; Range: 4.00-5.40; Units: M/mm3; Status: F Test: HEMOGLOBIN; Value: 9.4; Range: 12.0-16.0; Abnormal: Below low normal; Units: g/dl; Status: F Test: HEMATOCRIT; Value: 31.7; Range: 36.0-47.0; Abnormal: Below low normal; Units: %; Status: F Test: MEAN CORPUSCULAR VOLUME; Value: 74.9; Range: 80.0-96.0; Abnormal: Below low normal; Units: fl; Status: F Test: MEAN CORPUSCULAR HEMOGLOBIN; Value: 22.2; Range: 27.0-33.0; Abnormal: Below low normal; Units: pg; Status: F Test: MEAN CORPUSCULAR HGB CONC; Value: 29.7; Range: 32.0-36.5; Abnormal: Below low normal; Units: g/dl; Status: F Test: RED CELL DISTRIBUTION WIDTH; Value: 16.3; Range: 11.5-14.5; Abnormal: Above high normal; Units: %; Status: F Test: PLATELET COUNT, AUTOMATED; Value: 319; Range: 150-450; Units: k/mm3; Status: F Test: NEUTROPHILS %; Value: 58.4; Range: 36.0-66.0; Units: %; Status: F Test: LYMPH %; Value: 30.6; Range: 24.0-44.0; Units: %; Status: F Test: MONO %; Value: 4.6; Range: 0.0-5.0; Units: %; Status: F Test: EOS %; Value: 3.4; Range: 0.0-3.0; Abnormal: Above high normal; Units: %; Status: F Test: BASO %; Value: 0.8; Range: 0.0-1.0; Units: %; Status: F Test: LARGE UNSTAINED CELL %; Value: 2.1; Range: 0.0-4.0; Units: %; Status: F Test: NEUTROPHILS #; Value: 3.1; Range: 1.8-7.7; Units: K/mm3; Status: F Test: LYMPH #; Value: 1.6; Range: 1.5-4.5; Units: K/mm3; Status: F Test: MONO #; Value: 0.2; Range: 0.0-0.8; Units: K/mm3; Status: F Test: EOS #; Value: 0.2; Range: 0.0-0.50; Units: K/mm3; Status: F Test: BASO #; Value: 0.0; Range: 0.0-0.2; Units: K/mm3; Status: F Test: LARGE UNSTAINED CELL #; Value: 0.1; Range: 0.0-0.4; Units: K/mm3; Status: F Lab Order: BMP; SPEC'M 12/16/16 11:39 Test: GLUCOSE, FASTING; Value: 97; Range: 70-105; Units: MG/DL; Status: F Test: BLOOD UREA NITROGEN; Value: 5; Range: 7-18; Abnormal: Below low normal; Units: MG/DL; Status: F Test: CREATININE FOR GFR; Value: 0.77; Range: 0.55-1.02; Units: MG/DL; Status: F Test: GLOMERULAR FILTRATION RATE; Value: > 60.0; Range: >60; Status: F Test: SODIUM LEVEL; Value: 143; Range: 136-145; Units: MEQ/L; Status: F Test: POTASSIUM SERUM; Value: 3.9; Range: 3.5-5.1; Units: MEQ/L; Status: F Test: CHLORIDE LEVEL; Value: 107; Range: 98-107; Units: MEQ/L; Status: F Test: CARBON DIOXIDE LEVEL; Value: 27; Range: 21-32; Units: MEQ/L; Status: F Test: ANION GAP; Value: 9; Range: 8-16; Units: MEQ/L; Status: F Test: CALCIUM LEVEL; Value: 8.1; Range: 8.5-10.1; Abnormal: Below low normal; Units: MG/DL; Status: F Test Note: ; Units are mL/min/1.73 m2 Chronic Kidney Disease Staging per NKF: Stage I & II GFR >=60 Normal to Mildly Decreased Stage III GFR 30-59 Moderately Decreased Stage IV GFR 15-29 Severely Decreased Stage V GFR <15 Very Little GFR Left ESRD GFR <15 on VAMPER Lab Order: RBC MORPH PROF NO CHARGE; SPEC12/16/16 11:39 Test: PLATELET ESTIMATE; Range: NORMAL; Status: I Test: HYPOCHROMASIA; Value: 1+; Status: F Test: POIKILOCYTOSIS; Value: 1+; Status: F Test: ANISOCYTOSIS; Value: 1+; Status: F Test: MICROCYTOSIS; Value: 1+; Status: F Test: OVALOCYTES; Value: 1+; Status: F Test: PLATELET ESTIMATE; Value: NORMAL; Range: NORMAL; Status: F Lab Order: Urine Toxicology; SPEC'M 12/16/16 12:56 Test: AMPHETAMINES LEVEL URINE; Value: NEGATIVE; Range: NEGATIVE; Status: F Test: BARBITURATES URINE; Value: NEGATIVE; Range: NEGATIVE; Status: F Test: BENZODIAZEPINES URINE; Value: POSITIVE; Range: NEGATIVE; Abnormal: Above high normal; Status: F Test: CANNABINOIDS URINE; Value: NEGATIVE; Range: NEGATIVE; Status: F Test: COCAINE METABOLITE URINE; Value: NEGATIVE; Range: NEGATIVE; Status: F Test: METHADONE URINE; Value: NEGATIVE; Range: NEGATIVE; Status: F Test: OPIATES URINE; Value: NEGATIVE; Range: NEGATIVE; Status: F Test: TRICYCLIC ANTIDEPRESS URINE; Value: NEGATIVE; Range: NEGATIVE; Status: F Test Note: ; ALL PRESUMPTIVE POSITIVE FINDINGS ARE UNCONFIRMED NORMAL VALUES THRESHOLD IN NG/ML AMPHETAMINES 1000 METHAMPHETAMINES 1000 BARBITURATES 300 BENZODIAZEPINES 300 CANNABINOIDS (THC) 50 COCAINE METABOLITE 300 METHADONE 300 OPIATES 300 PHENCYCLIDINE 25 TRICYCLIC ANTIDEPRESSANTS 1000 RESULTS ARE FOR MEDICAL PURPOSES ONLY. ALL URINE SPECIMENS WILL BE SAVED FOR 3 DAYS. IF CONFIRMATION OF A PRESUMPTIVE POSTIVE SCREEN RESULT IS DESIRED, CALL CHEMISTRY ([phone]) AND REQUEST URINE TO BE SENT TO REFERENCE LAB. FOR A LIST OF CLOSELY RELATED COMPOUNDS PLEASE CALL THE LAB. Lab Order: Urinalysis; SPEC'M 12/16/16 12:56 Test: APPEARANCE, URINE; Value: CLEAR; Range: CLEAR; Status: F Test: COLOR, URINE; Value: STRAW; Range: YELLOW; Status: F Test: PH,URINE; Value: 6.0; Range: 5.0-9.0; Units: UNITS; Status: F Test: SPECIFIC GRAVITY URINE AUTO; Value: 1.008; Range: 1.002-1.035; Status: F Test: PROTEIN, URINE AUTO; Value: NEGATIVE; Range: NEGATIVE; Units: mg/dL; Status: F Test: GLUCOSE, URINE (UA) AUTO; Value: NEGATIVE; Range: NEGATIVE; Units: mg/dL; Status: F Test: KETONE, URINE AUTO; Value: NEGATIVE; Range: NEGATIVE; Units: mg/dL; Status: F Test: UROBILINOGEN, URINE AUTO; Value: 0.2; Range: 0.0-2.0; Units: mg/dL; Status: F Test: BILIRUBIN, URINE AUTO; Value: NEGATIVE; Range: NEGATIVE; Status: F Test: NITRITE, URINE AUTO; Value: NEGATIVE; Range: NEGATIVE; Status: F Test: LEUKOCYTE ESTERASE, URINE AUTO; Value: NEGATIVE; Range: NEGATIVE; Status: F Test: BLOOD, URINE BLOOD; Value: NEGATIVE; Range: NEGATIVE; Status: F Test: WBC, URINE AUTO; Value: 1; Range: 0-3; Units: /HPF; Status: F Test: RBC, URINE AUTO; Value: 1; Range: 0-3; Units: /HPF; Status: F Test: BACTERIA, URINE AUTO; Value: NEGATIVE; Range: NEGATIVE; Status: F Test: SQUAMOUS EPITHELIAL CELL UR AU; Value: 0; Range: 0-6; Units: /HPF; Status: F Test: HYALINE CAST, URINE AUTO; Value: 0; Range: 0-1; Units: /LPF; Status: F Lab Order: ETHYL ALCOHOL (ETHANOL); SPEC'M 12/16/16 11:39 Test: ETHYL ALCOHOL (ETHANOL); Value: < 0.003; Range: 0.000-0.010; Units: %; Status: F Radiology Order: Chest, 2 View (pa\\E\\lat) Test: Chest, 2 View (pa\\E\\lat) REASON FOR EXAMINATION: Shortness of Breath; Clinical: Shortness of breath .; ; Comparison: 05/27/2016 .; ; Technique: PA and lateral.; ; Findings:; The mediastinum and cardiac silhouette are normal. The lung snell are clear and; without acute consolidation, effusion, or pneumothorax. The skeletal structures; are intact and normal.; ; Impression:; 1. No acute cardiopulmonary process.; ; ; Signed by; Michael James MD 12/16/2016 12:56 P; Radiology Order: CT Head Without Contrast Test: CT Head Without Contrast REASON FOR EXAMINATION: Syncope; Clinical: Syncope .; ; Comparison: 08/31/2014 .; ; Findings:; The ventricles, sulci, and cisterns are normal in position and appearance.; Hinton-white differentiation is maintained. No acute intracranial hemorrhage,; mass/mass effect, pathology or trauma/injury. No evidence for acute infarction.; No extra-axial fluid collection. Calvarium is intact. Paranasal sinuses and; mastoid air cells are clear.; ; Impression:; Normal noncontrast head CT.; No evidence for acute intracranial pathology or trauma/injury.; ; ; Signed by; Michael James MD 12/16/2016 12:49 P; Outcome: 13:41 Discharge ordered by Provider. dania 14:16 Discharge Assessment: patient administered narcotics - no. The following High Risk jjr Discharge criteria are identified: None. Discharged to home ambulatory, with family. Condition: stable. Discharge instructions given to patient, Instructed on discharge instructions, follow up and referral plans. Demonstrated understanding of instructions. CT Study completed. Property sent home with patient. 14:17 Patient left the ED. jjr Signatures: Dispatcher [employer] EDBailey Morales, Patient Financial Services Manager Unit deg Byron Ugarte RN RN ms2 Shaina Ivey RN RN dls Yohannes Pierce, FINANCIAL PROFESSIONAL FINANCIAL PROFESSIONAL Charmaine Serrato RN RN jJace Guevara rn1 Corrections: (The following items were deleted from the chart) 12:26 12:24 ETHYL ALCOHOL (ETHANOL)+LAB sent. ms2 EDMS 13:19 11:34 Allergies: SULFA (SULFONAMIDES) (Anaphylaxis); ms2 ms2 MTDD
--- NOTE | 2016-12-16 14:19 | EDDOCDS ---
[facility]ation [facility] Name: Claude Diaz Age: 36 yrs Sex: Female : 1980 Arrival Date: 12/16/2016 Time: 11:17 Bed 19 Private MD: Disposition: 12/16/16 13:41 Discharged to Home/Self Care. Impression: Conversion disorder with seizures or convulsions. - Condition is Stable. - Discharge Instructions: Nonepileptic Seizures. - Medication Reconciliation, Local Pharmacy Hours form. - Follow up: Private Physician; When: 4 - 5 days; Reason: Recheck today's complaints, Continuance of care. Follow up: Susana Hein MD; When: Call to arrange an appointment; Reason: Further diagnostic work-up, Continuance of care. - Problem is an acute exacerbation. - Symptoms have improved. - Notes: NO DRIVING UNTIL CLEARED BY PHYSICIAN Historical: - Allergies: Fentanyl (tachcardia)transdermal; SULFA (SULFONAMIDES) (Anaphylaxis); - Home Meds: 1. Ambien 10 mg Oral tab 1 tab nightly (Last dose: Unknown) 2. fluoxetine 20 mg Oral cap 1 cap once daily (Last dose: 12/16/2016 09:00) 3. lorazepam 1 mg Oral tab 1 tab as needed (Last dose: 12/16/2016 10:00) 4. oxycodone 10 mg Oral tab 1 tab every 4 hours (Last dose: 12/16/2016 07:00) 5. Promethegan 25 mg Rectal supp q8hr PRN for nausea (Last dose: Unknown) 6. Soma 350 mg Oral tab 1 tab 3 times per day (Last dose: Unknown) 7. venlafaxine 75 mg oral tr24 1 tab once daily (Last dose: 12/16/2016 10:00) - PMHx: Depression; herniated disc; Pancreatitis; gastroparesis; - PSHx: lower lumbar fusion; Gastric Bypass; Cholecystectomy; Hysterectomy; - Social history: Smoking status: Patient states was never smoker of tobacco. No barriers to communication noted, The patient speaks fluent Burkinan. - : The pt / caregiver states he / she is not on anticoagulants. Home medication list is obtained from the patient, a discharge med list. - Exposure Risk Screening:: None identified. Vital Signs: 12/16 11:24 BP 125 / 74 (auto/); jjr 11:26 Pulse 120 MON; Pulse Ox 99% ; jjr 11:28 BP 138 / 76 (auto/); jjr 11:28 Pulse 118 MON; Pulse Ox 96% ; jjr 11:33 BP 125 / 74; Pulse 121; Resp 18; Temp 99.0(TE); Pulse Ox 98% on R/A; Weight 56.7 kg / rn1 125 lbs (R); Height 5 ft. 7 in. (170.18 cm) (R); Pain 8/10; 11:43 BP 125 / 62 (auto/); jjr 11:43 Pulse 112 MON; Pulse Ox 98% ; jjr 12:13 BP 124 / 78 (auto/); jjr 12:13 Pulse 98 MON; Pulse Ox 100% ; jjr 12:28 BP 115 / 72 (auto/); jjr 12:28 Pulse 100 MON; Pulse Ox 100% ; jjr 12:58 BP 116 / 76 (auto/); jjr 12:58 Pulse 98 MON; Pulse Ox 99% ; jjr 13:13 BP 111 / 65 (auto/); jjr 13:13 Pulse 92 MON; Pulse Ox 100% ; jjr 13:16 BP 111 / 65; Pulse 86; Resp 20 S; Pulse Ox 100% on R/A; ms2 13:28 BP 104 / 62 (auto/); jjr 13:28 Pulse 92 MON; Pulse Ox 100% ; jjr 13:43 BP 107 / 60 (auto/); jjr 13:43 Pulse 90 MON; Pulse Ox 100% ; jjr 13:58 BP 111 / 71 (auto/); jjr 13:58 Pulse 94 MON; Pulse Ox 100% ; jjr 14:09 BP 111 / 63 (auto/); jjr 14:11 Pulse 84 MON; Resp 18; Temp 96.7(O); Pulse Ox 100% on R/A; Pain 4/10; jjr 11:33 Body Mass Index 19.58 (56.70 kg, 170.18 cm) rn1 MDM: 11:26 IV Saline Lock ordered. br1 11:26 Revenue Cycle Specialist/Pulse Ox/q 30 min VS ordered. br1 11:26 CBC with Diff Ordered. EDMS 11:26 BMP Ordered. EDMS 12:14 NS 0.9% 1000 ml IV at bolus once ordered. ke 12:14 Urine Toxicology Ordered. EDMS 12:14 Urinalysis Ordered. EDMS 12:15 ECG WITH READING ER PHYS+CARDIAG ordered. EDMS 12:16 Chest, 2 View (pa\E\lat) Ordered. EDMS 12:16 CT Head Without Contrast Ordered. EDMS 12:58 ketorolac 30 mg IVP once ordered. ke 12:58 Metoclopramide 10 mg IV at 40 mg/hr once over 15 mins ordered. ke 12:58 CBC with Diff Reviewed. ke 12:58 BMP Reviewed. ke 12:58 RBC MORPH PROF NO CHARGE Reviewed. ke 12:58 ETHYL ALCOHOL (ETHANOL) Reviewed. ke 13:17 Urinalysis Reviewed. ke 13:17 CT Head Without Contrast Reviewed. ke 13:18 Urine Toxicology Reviewed. ke 13:18 Urinalysis Reviewed. ke Administered Medications: 12:27 Drug: NS 0.9% 1000 ml [sodium chloride 0.9 % intravenous solution] Route: IV; Rate: ms2 bolus; Site: right antecubital; 14:13 Follow up: IV Status: Infusion discontinued; IV Intake: 500ml jjr 13:12 Drug: ketorolac 30 mg [ketorolac 30 mg/mL (1 mL) injection solution (1 mL)] Route: IVP; ms2 Site: right antecubital; 13:16 Follow up: BP 111 / 65; Pulse 86 bpm; Resp 20 bpm Spontaneous; Pulse Ox 100% RA ms2 13:14 Drug: Metoclopramide 10 mg [metoclopramide 5 mg/mL injection solution] Route: IV; Rate: ms2 40 mg/hr; Infused Over: 15 mins; Site: right antecubital; 13:40 Follow up: IV Status: Completed infusion jjr Signatures: Dispatcher [employer] EDMS Byron Ugarte RN RN ms2 Yohannes Pierce, DIRECTOR OF CONSULTING SERVICES DIRECTOR OF CONSULTING SERVICES Lake Sal MD MD br1 Charmaine Starks RN RN jjr The chart was reviewed and I authenticate all verbal orders and agree with the evaluation and treatment provided.Corrections: (The following items were deleted from the chart) 12:26 12:14 ETHYL ALCOHOL (ETHANOL)+LAB ordered. EDMS EDMS 13:19 11:34 Allergies: SULFA (SULFONAMIDES) (Anaphylaxis); ms2 ms2 MTDD
--- NOTE | 2016-12-17 07:46 | ECGEPIP ---
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
--- NOTE | 2016-12-18 15:18 | EDDOCDS ---
Nurse's Notes [facility] Name: Claude Richmond Age: 36 yrs Sex: Female : 1980 Arrival Date: 12/16/2016 Time: 11:17 Bed 19 Private MD: Diagnosis: Conversion disorder with seizures or convulsions Presentation: 12/16 11:21 Presenting complaint: EMS states: hx pseudoseizures---today seen here Fri. for ms2 dehydration and palpations. Today went rigid and had minor tremors for 15 seconds ---could respond at one point---went to zero strength per EMS---140 systolic---HR 120 in this "relaxed state". Suicide/Homicide risk assessment- the patient denies having any suicidal and/or homicidal ideations and does not present with any other emotional, behavioral or mental health complaints. Status: Patient is not a in service coordinator or dependent. Transition of care: patient was not received from another setting of care. 11:21 Acuity: YAKELIN Level 3 ms2 11:21 Method Of Arrival: Ambulance ms2 11:37 Adult Sepsis Screening: The patient does not have new or worsening altered mentation. ms2 Patient's respiratory rate is less than 22. Systolic blood pressure is greater than 100. Patient has a qSOFA score of 0- Negative Sepsis Screen. 11:51 Presenting complaint: Patient states: pt states symptoms began enroute to see ms2 parents-was driving self in car-did pull to side of road and called EMS. Triage Assessment: 11:36 General: Appears distressed, Behavior is cooperative. General: Behavior is anxious. ms2 Pain: Location: epigastric area Pain currently is 8 out of 10 on a pain scale. HIV screening NA for this visit Offered previously. The patient is triaged at the bedside. See Assessment in Nurses Notes section of ED record. Neurological: Level of Consciousness is awake, alert, obeys commands. Cardiovascular: Rhythm is sinus tachycardia No ectopy. Respiratory: Airway is patent Respiratory effort is even, unlabored, Respiratory pattern is regular, symmetrical. GI: Abdomen is flat, non- distended. Derm: Skin is pink, warm & dry. Musculoskeletal: Range of motion intact in all extremities. Historical: - Allergies: Fentanyl (tachcardia)transdermal; SULFA (SULFONAMIDES) (Anaphylaxis); - Home Meds: 1. Ambien 10 mg Oral tab 1 tab nightly (Last dose: Unknown) 2. fluoxetine 20 mg Oral cap 1 cap once daily (Last dose: 12/16/2016 09:00) 3. lorazepam 1 mg Oral tab 1 tab as needed (Last dose: 12/16/2016 10:00) 4. oxycodone 10 mg Oral tab 1 tab every 4 hours (Last dose: 12/16/2016 07:00) 5. Promethegan 25 mg Rectal supp q8hr PRN for nausea (Last dose: Unknown) 6. Soma 350 mg Oral tab 1 tab 3 times per day (Last dose: Unknown) 7. venlafaxine 75 mg oral tr24 1 tab once daily (Last dose: 12/16/2016 10:00) - PMHx: Depression; herniated disc; Pancreatitis; gastroparesis; - PSHx: lower lumbar fusion; Gastric Bypass; Cholecystectomy; Hysterectomy; - Social history: Smoking status: Patient states was never smoker of tobacco. No barriers to communication noted, The patient speaks fluent [place]. - : The pt / caregiver states he / she is not on anticoagulants. Home medication list is obtained from the patient, a discharge med list. - Exposure Risk Screening:: None identified. Screenin:18 Infection Control. deg 11:35 Screening information is obtained from the patient. Fall risk: No risks identified. ms2 Assistance ADL's: requires no assistance with activities of daily living. Abuse/DV Screen: The patient / caregiver reports he/she is: not in a situation that causes fear, pain or injury. Nutritional screening: No deficits noted. Advance Directives: There is an active Power of Chief Design Branch, ---ab[place]. home support is adequate. Assessment: 11:37 General: see triage note. ms2 11:50 General: Appears pt more relaxed, but remains anxious -both parents here. ms2 12:28 General: Appears in no apparent distress, comfortable, Behavior is cooperative, anxiety ms2 lessening---hr--108-no psuedoseizures-no crying -extremities not clenched. Neurological: No deficits noted. Cardiovascular: Rhythm is sinus tachycardia No ectopy. Respiratory: Respiratory effort is even, unlabored. Derm: Skin is pink, warm & dry. Musculoskeletal: No deficits noted. 12:59 General: grain farmworker elsner aware pt requesting pain meds for stomach and back (-05/30). ms2 13:12 General: Appears in no apparent distress, pt medicated per order. Behavior is ms2 cooperative, parents with pt. Neurological: No deficits noted. Cardiovascular: Rhythm is sinus tachycardia rate 103. Respiratory: No deficits noted. Derm: Skin is pink, warm & dry. Musculoskeletal: No deficits noted. 14:15 General: Appears in no apparent distress, ambulatory to BR gait steady. Pain: Pain jjr currently is 4 out of 10 on a pain scale. Respiratory: No deficits noted. Derm: Skin is pink, warm & dry. Vital Signs: 11:24 BP 125 / 74 (auto/); jjr 11:26 Pulse 120 MON; Pulse Ox 99% ; jjr 11:28 BP 138 / 76 (auto/); jjr 11:28 Pulse 118 MON; Pulse Ox 96% ; jjr 11:33 BP 125 / 74; Pulse 121; Resp 18; Temp 99.0(TE); Pulse Ox 98% on R/A; Weight 56.7 kg rn1 (R); Height 5 ft. 7 in. (170.18 cm) (R); Pain 8; 11:43 BP 125 / 62 (auto/); jjr 11:43 Pulse 112 MON; Pulse Ox 98% ; jjr 12:13 BP 124 / 78 (auto/); jjr 12:13 Pulse 98 MON; Pulse Ox 100% ; jjr 12:28 BP 115 / 72 (auto/); jjr 12:28 Pulse 100 MON; Pulse Ox 100% ; jjr 12:58 BP 116 / 76 (auto/); jjr 12:58 Pulse 98 MON; Pulse Ox 99% ; jjr 13:13 BP 111 / 65 (auto/); jjr 13:13 Pulse 92 MON; Pulse Ox 100% ; jjr 13:16 BP 111 / 65; Pulse 86; Resp 20 S; Pulse Ox 100% on R/A; ms2 13:28 BP 104 / 62 (auto/); jjr 13:28 Pulse 92 MON; Pulse Ox 100% ; jjr 13:43 BP 107 / 60 (auto/); jjr 13:43 Pulse 90 MON; Pulse Ox 100% ; jjr 13:58 BP 111 / 71 (auto/); jjr 13:58 Pulse 94 MON; Pulse Ox 100% ; jjr 14:09 BP 111 / 63 (auto/); jjr 14:11 Pulse 84 MON; Resp 18; Temp 96.7(O); Pulse Ox 100% on R/A; Pain 4/10; jjr 11:33 Body Mass Index 19.58 (56.70 kg, 170.18 cm) rn1 Vitals: 14:17 Log In Time N/A - ambulance arrival. [facility] ED Course: 11:17 Patient visited by Bailey Ashley, Freight Sorter. deg 11:17 Patient moved to Waiting deg 11:18 Byron Ugarte,RN is Primary Nurse. dls 11:18 Patient moved to 19 dls 11:20 Patient visited by Byron Ugarte,STACIE. ms2 11:25 Triage Initiated ms2 11:29 Patient visited by Byron Ugarte,STACIE. ms2 11:38 The patient / caregiver is instructed regarding the plan of care and ED course. Patient ms2 has correct armband on for positive identification. Placed in gown. Bed in low position. Call light in reach. Side rails up X2. Adult w/ patient. Seizure precautions initiated. groundwater monitoring technician on. Pulse ox on. NIBP on. 11:45 Inserted saline lock: 20 gauge in right antecubital area The patient tolerated the ms2 procedure well. No procedures done that require assistance. 11:50 Patient visited by Byron Ugarte RN. ms2 11:50 BMP Sent. ms2 11:50 CBC with Diff Sent. ms2 12:09 Yohannes Pierce FNP is PHCP. ke 12:09 Patient visited by Yohannes Pierce FNP. ke 12:09 Patient visited by Yohannes Pierce FNP. ke 12:30 The patient / caregiver is instructed regarding the plan of care and ED course. Cardiac ms2 monitor on. Pulse ox on. NIBP on. 12:30 IV is patent, is intact, is free of redness or swelling. solution is infusing as ms2 ordered. 12:45 EKG done. (by ED staff). Reviewed by Yohannes DALEY. rn1 12:46 Patient visited by Yohannes Pierce FNP. ke 12:59 Urinalysis Sent. ms2 12:59 Urine Toxicology Sent. ms2 13:04 CT Head Without Contrast Returned. EDMS 13:17 Patient visited by Yohannes Pierce FNP. ke 13:17 The patient / caregiver is instructed regarding the plan of care and ED course. Cardiac ms2 monitor on. Pulse ox on. NIBP on. 13:18 IV is patent, is intact, is free of redness or swelling. solution is infusing as ms2 ordered. 13:37 Chest, 2 View (pa\\E\\lat) Returned. EDMS 13:40 Susana Hein MD is Referral Physician. ke 14:16 Discontinued lock intact, bleeding controlled, pressure dressing applied, No jjr redness/swelling at site. 14:42 [facility] was scanned into [employer] and attached to record. mm15 12/17 08:11 EKG-ADULT Returned. EDMS 09:39 T-Sheet-- Draft Copy was scanned into [employer] and attached to record. gb 14:15 ECG/EKG was scanned into [employer] and attached to record. gb 14:15 Trend VS was scanned into [employer] and attached to record. gb Administered Medications: 12/16 12:27 Drug: NS 0.9% 1000 ml [sodium chloride 0.9 % intravenous solution] Route: IV; Rate: ms2 bolus; Site: right antecubital; 14:13 Follow up: IV Status: Infusion discontinued; IV Intake: 500ml jjr 13:12 Drug: ketorolac 30 mg [ketorolac 30 mg/mL (1 mL) injection solution (1 mL)] Route: IVP; ms2 Site: right antecubital; 13:16 Follow up: BP 111 / 65; Pulse 86 bpm; Resp 20 bpm Spontaneous; Pulse Ox 100% RA ms2 13:14 Drug: Metoclopramide 10 mg [metoclopramide 5 mg/mL injection solution] Route: IV; Rate: ms2 40 mg/hr; Infused Over: 15 mins; Site: right antecubital; 13:40 Follow up: IV Status: Completed infusion jjr Attachments: 14:15 Trend VS gb Intake: 12/16 14:13 IV: 500.00ml; Total: 500.00ml. jjr Order Results: Lab Order: CBC with Diff; SPEC'M 12/16/16 11:39 Test: WHITE BLOOD COUNT; Value: 5.3; Range: 4.0-10.0; Units: K/mm3; Status: F Test: RED BLOOD COUNT; Value: 4.23; Range: 4.00-5.40; Units: M/mm3; Status: F Test: HEMOGLOBIN; Value: 9.4; Range: 12.0-16.0; Abnormal: Below low normal; Units: g/dl; Status: F Test: HEMATOCRIT; Value: 31.7; Range: 36.0-47.0; Abnormal: Below low normal; Units: %; Status: F Test: MEAN CORPUSCULAR VOLUME; Value: 74.9; Range: 80.0-96.0; Abnormal: Below low normal; Units: fl; Status: F Test: MEAN CORPUSCULAR HEMOGLOBIN; Value: 22.2; Range: 27.0-33.0; Abnormal: Below low normal; Units: pg; Status: F Test: MEAN CORPUSCULAR HGB CONC; Value: 29.7; Range: 32.0-36.5; Abnormal: Below low normal; Units: g/dl; Status: F Test: RED CELL DISTRIBUTION WIDTH; Value: 16.3; Range: 11.5-14.5; Abnormal: Above high normal; Units: %; Status: F Test: PLATELET COUNT, AUTOMATED; Value: 319; Range: 150-450; Units: k/mm3; Status: F Test: NEUTROPHILS %; Value: 58.4; Range: 36.0-66.0; Units: %; Status: F Test: LYMPH %; Value: 30.6; Range: 24.0-44.0; Units: %; Status: F Test: MONO %; Value: 4.6; Range: 0.0-5.0; Units: %; Status: F Test: EOS %; Value: 3.4; Range: 0.0-3.0; Abnormal: Above high normal; Units: %; Status: F Test: BASO %; Value: 0.8; Range: 0.0-1.0; Units: %; Status: F Test: LARGE UNSTAINED CELL %; Value: 2.1; Range: 0.0-4.0; Units: %; Status: F Test: NEUTROPHILS #; Value: 3.1; Range: 1.8-7.7; Units: K/mm3; Status: F Test: LYMPH #; Value: 1.6; Range: 1.5-4.5; Units: K/mm3; Status: F Test: MONO #; Value: 0.2; Range: 0.0-0.8; Units: K/mm3; Status: F Test: EOS #; Value: 0.2; Range: 0.0-0.50; Units: K/mm3; Status: F Test: BASO #; Value: 0.0; Range: 0.0-0.2; Units: K/mm3; Status: F Test: LARGE UNSTAINED CELL #; Value: 0.1; Range: 0.0-0.4; Units: K/mm3; Status: F Lab Order: [facility]; SPEC'M 12/16/16 11:39 Test: GLUCOSE, FASTING; Value: 97; Range: 70-105; Units: MG/DL; Status: F Test: BLOOD UREA NITROGEN; Value: 5; Range: 7-18; Abnormal: Below low normal; Units: MG/DL; Status: F Test: CREATININE FOR GFR; Value: 0.77; Range: 0.55-1.02; Units: MG/DL; Status: F Test: GLOMERULAR FILTRATION RATE; Value: > 60.0; Range: >60; Status: F Test: SODIUM LEVEL; Value: 143; Range: 136-145; Units: MEQ/L; Status: F Test: POTASSIUM SERUM; Value: 3.9; Range: 3.5-5.1; Units: MEQ/L; Status: F Test: CHLORIDE LEVEL; Value: 107; Range: 98-107; Units: MEQ/L; Status: F Test: CARBON DIOXIDE LEVEL; Value: 27; Range: 21-32; Units: MEQ/L; Status: F Test: ANION GAP; Value: 9; Range: 8-16; Units: MEQ/L; Status: F Test: CALCIUM LEVEL; Value: 8.1; Range: 8.5-10.1; Abnormal: Below low normal; Units: MG/DL; Status: F Test Note: ; Units are mL/min/1.73 m2 Chronic Kidney Disease Staging per NKF: Stage I & II GFR >=60 Normal to Mildly Decreased Stage III GFR 30-59 Moderately Decreased Stage IV GFR 15-29 Severely Decreased Stage V GFR <15 Very Little GFR Left ESRD GFR <15 on WAGE CONCILIATOR Lab Order: RBC MORPH PROF NO CHARGE; SPEC'M 12/16/16 11:39 Test: PLATELET ESTIMATE; Range: NORMAL; Status: I Test: HYPOCHROMASIA; Value: 1+; Status: F Test: POIKILOCYTOSIS; Value: 1+; Status: F Test: ANISOCYTOSIS; Value: 1+; Status: F Test: MICROCYTOSIS; Value: 1+; Status: F Test: OVALOCYTES; Value: 1+; Status: F Test: PLATELET ESTIMATE; Value: NORMAL; Range: NORMAL; Status: F Lab Order: Urine Toxicology; SPEC'M 12/16/16 12:56 Test: AMPHETAMINES LEVEL URINE; Value: NEGATIVE; Range: NEGATIVE; Status: F Test: BARBITURATES URINE; Value: NEGATIVE; Range: NEGATIVE; Status: F Test: BENZODIAZEPINES URINE; Value: POSITIVE; Range: NEGATIVE; Abnormal: Above high normal; Status: F Test: CANNABINOIDS URINE; Value: NEGATIVE; Range: NEGATIVE; Status: F Test: COCAINE METABOLITE URINE; Value: NEGATIVE; Range: NEGATIVE; Status: F Test: METHADONE URINE; Value: NEGATIVE; Range: NEGATIVE; Status: F Test: OPIATES URINE; Value: NEGATIVE; Range: NEGATIVE; Status: F Test: TRICYCLIC ANTIDEPRESS URINE; Value: NEGATIVE; Range: NEGATIVE; Status: F Test Note: ; ALL PRESUMPTIVE POSITIVE FINDINGS ARE UNCONFIRMED NORMAL VALUES THRESHOLD IN NG/ML AMPHETAMINES 1000 METHAMPHETAMINES 1000 BARBITURATES 300 BENZODIAZEPINES 300 CANNABINOIDS (THC) 50 COCAINE METABOLITE 300 METHADONE 300 OPIATES 300 PHENCYCLIDINE 25 TRICYCLIC ANTIDEPRESSANTS 1000 RESULTS ARE FOR MEDICAL PURPOSES ONLY. ALL URINE SPECIMENS WILL BE SAVED FOR 3 DAYS. IF CONFIRMATION OF A PRESUMPTIVE POSTIVE SCREEN RESULT IS DESIRED, CALL CHEMISTRY ([phone]) AND REQUEST URINE TO BE SENT TO REFERENCE LAB. FOR A LIST OF CLOSELY RELATED COMPOUNDS PLEASE CALL THE LAB. Lab Order: Urinalysis; SPEC'M 12/16/16 12:56 Test: APPEARANCE, URINE; Value: CLEAR; Range: CLEAR; Status: F Test: COLOR, URINE; Value: STRAW; Range: YELLOW; Status: F Test: PH,URINE; Value: 6.0; Range: 5.0-9.0; Units: UNITS; Status: F Test: SPECIFIC GRAVITY URINE AUTO; Value: 1.008; Range: 1.002-1.035; Status: F Test: PROTEIN, URINE AUTO; Value: NEGATIVE; Range: NEGATIVE; Units: mg/dL; Status: F Test: GLUCOSE, URINE (UA) AUTO; Value: NEGATIVE; Range: NEGATIVE; Units: mg/dL; Status: F Test: KETONE, URINE AUTO; Value: NEGATIVE; Range: NEGATIVE; Units: mg/dL; Status: F Test: UROBILINOGEN, URINE AUTO; Value: 0.2; Range: 0.0-2.0; Units: mg/dL; Status: F Test: BILIRUBIN, URINE AUTO; Value: NEGATIVE; Range: NEGATIVE; Status: F Test: NITRITE, URINE AUTO; Value: NEGATIVE; Range: NEGATIVE; Status: F Test: LEUKOCYTE ESTERASE, URINE AUTO; Value: NEGATIVE; Range: NEGATIVE; Status: F Test: BLOOD, URINE BLOOD; Value: NEGATIVE; Range: NEGATIVE; Status: F Test: WBC, URINE AUTO; Value: 1; Range: 0-3; Units: /HPF; Status: F Test: RBC, URINE AUTO; Value: 1; Range: 0-3; Units: /HPF; Status: F Test: BACTERIA, URINE AUTO; Value: NEGATIVE; Range: NEGATIVE; Status: F Test: SQUAMOUS EPITHELIAL CELL UR AU; Value: 0; Range: 0-6; Units: /HPF; Status: F Test: HYALINE CAST, URINE AUTO; Value: 0; Range: 0-1; Units: /LPF; Status: F Lab Order: ETHYL ALCOHOL (ETHANOL); SPEC'M 12/16/16 11:39 Test: ETHYL ALCOHOL (ETHANOL); Value: < 0.003; Range: 0.000-0.010; Units: %; Status: F Radiology Order: EKG-ADULT Test: EKG-ADULT REASON FOR EXAMINATION: CVA >4.5hrs; Stationary ECG Study; [facility] - ED; ; Test Date: 2016-12-16; Pat Name: CLAUDE RICHMOND Department:; Room: -; Gender: F Acid Regenerator: rn; : 1980 Requested By: YOHANNES DALEY; Order Number: [id number] Alecia MD: Charmaine Hill; Measurements; Intervals [place]; Rate: 96 P: 61; RI: 108 QRS: 59; QRSD: 77 T: 39; QT: 347; QTc: 439; Interpretive Statements; SINUS RHYTHM WITH SHORT RI INTERVAL; INCREASED RATE 12/14/16; Electronically Signed On 12-17-2016 7:46:25 EST by Charmaine Hill; Radiology Order: Chest, 2 View (pa\\E\\lat) Test: Chest, 2 View (pa\\E\\lat) REASON FOR EXAMINATION: Shortness of Breath; Clinical: Shortness of breath .; ; Comparison: 05/27/2016 .; ; Technique: PA and lateral.; ; Findings:; The mediastinum and cardiac silhouette are normal. The lung snell are clear and; without acute consolidation, effusion, or pneumothorax. The skeletal structures; are intact and normal.; ; Impression:; 1. No acute cardiopulmonary process.; ; ; Signed by; Michael James MD 12/16/2016 12:56 P; Radiology Order: CT Head Without Contrast Test: CT Head Without Contrast REASON FOR EXAMINATION: Syncope; Clinical: Syncope .; ; Comparison: 08/31/2014 .; ; Findings:; The ventricles, sulci, and cisterns are normal in position and appearance.; Hinton-white differentiation is maintained. No acute intracranial hemorrhage,; mass/mass effect, pathology or trauma/injury. No evidence for acute infarction.; No extra-axial fluid collection. Calvarium is intact. Paranasal sinuses and; mastoid air cells are clear.; ; Impression:; Normal noncontrast head CT.; No evidence for acute intracranial pathology or trauma/injury.; ; ; Signed by; Michael James MD 12/16/2016 12:49 P; Outcome: 13:41 Discharge ordered by Provider. ke 14:16 Discharge Assessment: patient administered narcotics - no. The following High Risk jjr Discharge criteria are identified: None. Discharged to home ambulatory, with family. Condition: stable. Discharge instructions given to patient, Instructed on discharge instructions, follow up and referral plans. Demonstrated understanding of instructions. CT Study completed. Property sent home with patient. 14:17 Patient left the ED. jjr Signatures: Dispatcher [employer] EDBailey Morales, Freight Sorter Unit deg Byron Ugarte RN RN ms2 Scott, Debra, RN RN dls Elif Jensen, Reg Reg gb Yohannes Pierce, JAVA CORE DEVELOPER JAVA CORE DEVELOPER Charmaine Serrato, RN RN Lisa Pate mm15 Jace Monetsinos rn1 Corrections: (The following items were deleted from the chart) 12: 12:24 ETHYL ALCOHOL (ETHANOL)+LAB sent. ms2 EDMS 13:19 11:34 Allergies: SULFA (SULFONAMIDES) (Anaphylaxis); ms2 ms2 Chart Complete MTDD
--- NOTE | 2016-12-18 15:18 | EDDOCDS ---
Physician Documentation [facility] Name: Claude Diaz Age: 36 yrs Sex: Female : 1980 Arrival Date: 12/16/2016 Time: 11:17 Bed 19 Private MD: Disposition: 12/16/16 13:41 Discharged to Home/Self Care. Impression: Conversion disorder with seizures or convulsions. - Condition is Stable. - Discharge Instructions: Nonepileptic Seizures. - Medication Reconciliation, Local Pharmacy Hours form. - Follow up: Private Physician; When: 4 - 5 days; Reason: Recheck today's complaints, Continuance of care. Follow up: Susana Hein MD; When: Call to arrange an appointment; Reason: Further diagnostic work-up, Continuance of care. - Problem is an acute exacerbation. - Symptoms have improved. - Notes: NO DRIVING UNTIL CLEARED BY PHYSICIAN Historical: - Allergies: Fentanyl (tachcardia)transdermal; SULFA (SULFONAMIDES) (Anaphylaxis); - Home Meds: 1. Ambien 10 mg Oral tab 1 tab nightly (Last dose: Unknown) 2. fluoxetine 20 mg Oral cap 1 cap once daily (Last dose: 12/16/2016 09:00) 3. lorazepam 1 mg Oral tab 1 tab as needed (Last dose: 12/16/2016 10:00) 4. oxycodone 10 mg Oral tab 1 tab every 4 hours (Last dose: 12/16/2016 07:00) 5. Promethegan 25 mg Rectal supp q8hr PRN for nausea (Last dose: Unknown) 6. Soma 350 mg Oral tab 1 tab 3 times per day (Last dose: Unknown) 7. venlafaxine 75 mg oral tr24 1 tab once daily (Last dose: 12/16/2016 10:00) - PMHx: Depression; herniated disc; Pancreatitis; gastroparesis; - PSHx: lower lumbar fusion; Gastric Bypass; Cholecystectomy; Hysterectomy; - Social history: Smoking status: Patient states was never smoker of tobacco. No barriers to communication noted, The patient speaks fluent Faroese. - : The pt / caregiver states he / she is not on anticoagulants. Home medication list is obtained from the patient, a discharge med list. - Exposure Risk Screening:: None identified. Vital Signs: 12/16 11:24 BP 125 / 74 (auto/); jjr 11:26 Pulse 120 MON; Pulse Ox 99% ; jjr 11:28 BP 138 / 76 (auto/); jjr 11:28 Pulse 118 MON; Pulse Ox 96% ; jjr 11:33 BP 125 / 74; Pulse 121; Resp 18; Temp 99.0(TE); Pulse Ox 98% on R/A; Weight 56.7 kg / rn1 125 lbs (R); Height 5 ft. 7 in. (170.18 cm) (R); Pain 8/10; 11:43 BP 125 / 62 (auto/); jjr 11:43 Pulse 112 MON; Pulse Ox 98% ; jjr 12:13 BP 124 / 78 (auto/); jjr 12:13 Pulse 98 MON; Pulse Ox 100% ; jjr 12:28 BP 115 / 72 (auto/); jjr 12:28 Pulse 100 MON; Pulse Ox 100% ; jjr 12:58 BP 116 / 76 (auto/); jjr 12:58 Pulse 98 MON; Pulse Ox 99% ; jjr 13:13 BP 111 / 65 (auto/); jjr 13:13 Pulse 92 MON; Pulse Ox 100% ; jjr 13:16 BP 111 / 65; Pulse 86; Resp 20 S; Pulse Ox 100% on R/A; ms2 13:28 BP 104 / 62 (auto/); jjr 13:28 Pulse 92 MON; Pulse Ox 100% ; jjr 13:43 BP 107 / 60 (auto/); jjr 13:43 Pulse 90 MON; Pulse Ox 100% ; jjr 13:58 BP 111 / 71 (auto/); jjr 13:58 Pulse 94 MON; Pulse Ox 100% ; jjr 14:09 BP 111 / 63 (auto/); jjr 14:11 Pulse 84 MON; Resp 18; Temp 96.7(O); Pulse Ox 100% on R/A; Pain 4/10; jjr 11:33 Body Mass Index 19.58 (56.70 kg, 170.18 cm) rn1 MDM: 11:26 IV Saline Lock ordered. br1 11:26 Wafer Fab Operator/Pulse Ox/q 30 min VS ordered. br1 11:26 CBC with Diff Ordered. EDMS 11:26 BMP Ordered. EDMS 12:14 NS 0.9% 1000 ml IV at bolus once ordered. ke 12:14 Urine Toxicology Ordered. EDMS 12:14 Urinalysis Ordered. EDMS 12:15 ECG WITH READING ER PHYS+CARDIAG ordered. EDMS 12:16 Chest, 2 View (pa\E\lat) Ordered. EDMS 12:16 CT Head Without Contrast Ordered. EDMS 12:58 ketorolac 30 mg IVP once ordered. ke 12:58 Metoclopramide 10 mg IV at 40 mg/hr once over 15 mins ordered. ke 12:58 CBC with Diff Reviewed. ke 12:58 BMP Reviewed. ke 12:58 RBC MORPH PROF NO CHARGE Reviewed. ke 12:58 ETHYL ALCOHOL (ETHANOL) Reviewed. ke 13:17 Urinalysis Reviewed. ke 13:17 CT Head Without Contrast Reviewed. ke 13:18 Urine Toxicology Reviewed. ke 13:18 Urinalysis Reviewed. ke 14:42 Financial registration complete. mm15 14:42 [facility] Payment Agreement was scanned into [employer] and attached to record. mm15 12/17 09:39 T-Sheet-- Draft Copy was scanned into [employer] and attached to record. gb 14:15 ECG/EKG was scanned into [employer] and attached to record. gb 14:15 Trend VS was scanned into [employer] and attached to record. gb Administered Medications: 12/16 12:27 Drug: NS 0.9% 1000 ml [sodium chloride 0.9 % intravenous solution] Route: IV; Rate: ms2 bolus; Site: right antecubital; 14:13 Follow up: IV Status: Infusion discontinued; IV Intake: 500ml jjr 13:12 Drug: ketorolac 30 mg [ketorolac 30 mg/mL (1 mL) injection solution (1 mL)] Route: IVP; ms2 Site: right antecubital; 13:16 Follow up: BP 111 / 65; Pulse 86 bpm; Resp 20 bpm Spontaneous; Pulse Ox 100% RA ms2 13:14 Drug: Metoclopramide 10 mg [metoclopramide 5 mg/mL injection solution] Route: IV; Rate: ms2 40 mg/hr; Infused Over: 15 mins; Site: right antecubital; 13:40 Follow up: IV Status: Completed infusion jjr Signatures: Dispatcher [employer] Byron Serna,RN RN ms2 Elif Jensen, Reg Reg gb Yohannes Pierce, FIRE EQUIPMENT REPAIRER INSPECTOR [place] Serrato MD MD br1 Charmaine Starks RN RN jLisa Renae mm15 The chart was reviewed and I authenticate all verbal orders and agree with the evaluation and treatment provided.Corrections: (The following items were deleted from the chart) 12:26 12:14 ETHYL ALCOHOL (ETHANOL)+LAB ordered. EDMS EDMS 13:19 11:34 Allergies: SULFA (SULFONAMIDES) (Anaphylaxis); ms2 ms2 Attachments: 14:42 [facility] [place] mm15 12/17 09:39 T-Sheet-- Draft Copy gb 14:15 ECG/EKG gb Chart Complete MTDD
--- NOTE | 2016-12-18 15:18 | EDDOCDS ---
Physician Documentation [facility] Name: Claude Diaz Age: 36 yrs Sex: Female : 1980 Arrival Date: 12/16/2016 Time: 11:17 Bed 19 Private MD: Disposition: 12/16/16 13:41 Discharged to Home/Self Care. Impression: Conversion disorder with seizures or convulsions. - Condition is Stable. - Discharge Instructions: Nonepileptic Seizures. - Medication Reconciliation, Local Pharmacy Hours form. - Follow up: Private Physician; When: 4 - 5 days; Reason: Recheck today's complaints, Continuance of care. Follow up: Susana Hein MD; When: Call to arrange an appointment; Reason: Further diagnostic work-up, Continuance of care. - Problem is an acute exacerbation. - Symptoms have improved. - Notes: NO DRIVING UNTIL CLEARED BY PHYSICIAN Historical: - Allergies: Fentanyl (tachcardia)transdermal; SULFA (SULFONAMIDES) (Anaphylaxis); - Home Meds: 1. Ambien 10 mg Oral tab 1 tab nightly (Last dose: Unknown) 2. fluoxetine 20 mg Oral cap 1 cap once daily (Last dose: 12/16/2016 09:00) 3. lorazepam 1 mg Oral tab 1 tab as needed (Last dose: 12/16/2016 10:00) 4. oxycodone 10 mg Oral tab 1 tab every 4 hours (Last dose: 12/16/2016 07:00) 5. Promethegan 25 mg Rectal supp q8hr PRN for nausea (Last dose: Unknown) 6. Soma 350 mg Oral tab 1 tab 3 times per day (Last dose: Unknown) 7. venlafaxine 75 mg oral tr24 1 tab once daily (Last dose: 12/16/2016 10:00) - PMHx: Depression; herniated disc; Pancreatitis; gastroparesis; - PSHx: lower lumbar fusion; Gastric Bypass; Cholecystectomy; Hysterectomy; - Social history: Smoking status: Patient states was never smoker of tobacco. No barriers to communication noted, The patient speaks fluent French. - : The pt / caregiver states he / she is not on anticoagulants. Home medication list is obtained from the patient, a discharge med list. - Exposure Risk Screening:: None identified. Vital Signs: 12/16 11:24 BP 125 / 74 (auto/); jjr 11:26 Pulse 120 MON; Pulse Ox 99% ; jjr 11:28 BP 138 / 76 (auto/); jjr 11:28 Pulse 118 MON; Pulse Ox 96% ; jjr 11:33 BP 125 / 74; Pulse 121; Resp 18; Temp 99.0(TE); Pulse Ox 98% on R/A; Weight 56.7 kg / rn1 125 lbs (R); Height 5 ft. 7 in. (170.18 cm) (R); Pain 8/10; 11:43 BP 125 / 62 (auto/); jjr 11:43 Pulse 112 MON; Pulse Ox 98% ; jjr 12:13 BP 124 / 78 (auto/); jjr 12:13 Pulse 98 MON; Pulse Ox 100% ; jjr 12:28 BP 115 / 72 (auto/); jjr 12:28 Pulse 100 MON; Pulse Ox 100% ; jjr 12:58 BP 116 / 76 (auto/); jjr 12:58 Pulse 98 MON; Pulse Ox 99% ; jjr 13:13 BP 111 / 65 (auto/); jjr 13:13 Pulse 92 MON; Pulse Ox 100% ; jjr 13:16 BP 111 / 65; Pulse 86; Resp 20 S; Pulse Ox 100% on R/A; ms2 13:28 BP 104 / 62 (auto/); jjr 13:28 Pulse 92 MON; Pulse Ox 100% ; jjr 13:43 BP 107 / 60 (auto/); jjr 13:43 Pulse 90 MON; Pulse Ox 100% ; jjr 13:58 BP 111 / 71 (auto/); jjr 13:58 Pulse 94 MON; Pulse Ox 100% ; jjr 14:09 BP 111 / 63 (auto/); jjr 14:11 Pulse 84 MON; Resp 18; Temp 96.7(O); Pulse Ox 100% on R/A; Pain 4/10; jjr 11:33 Body Mass Index 19.58 (56.70 kg, 170.18 cm) rn1 MDM: 11:26 IV Saline Lock ordered. br1 11:26 Business Partner/Pulse Ox/q 30 min VS ordered. br1 11:26 CBC with Diff Ordered. EDMS 11:26 BMP Ordered. EDMS 12:14 NS 0.9% 1000 ml IV at bolus once ordered. ke 12:14 Urine Toxicology Ordered. EDMS 12:14 Urinalysis Ordered. EDMS 12:15 ECG WITH READING ER PHYS+CARDIAG ordered. EDMS 12:16 Chest, 2 View (pa\E\lat) Ordered. EDMS 12:16 CT Head Without Contrast Ordered. EDMS 12:58 ketorolac 30 mg IVP once ordered. ke 12:58 Metoclopramide 10 mg IV at 40 mg/hr once over 15 mins ordered. ke 12:58 CBC with Diff Reviewed. ke 12:58 BMP Reviewed. ke 12:58 RBC MORPH PROF NO CHARGE Reviewed. ke 12:58 ETHYL ALCOHOL (ETHANOL) Reviewed. ke 13:17 Urinalysis Reviewed. ke 13:17 CT Head Without Contrast Reviewed. ke 13:18 Urine Toxicology Reviewed. ke 13:18 Urinalysis Reviewed. ke 14:42 Financial registration complete. mm15 14:42 [facility] Payment Agreement was scanned into Education Everytime and attached to record. mm15 12/17 09:39 T-Sheet-- Draft Copy was scanned into Education Everytime and attached to record. gb 14:15 ECG/EKG was scanned into Education Everytime and attached to record. gb 14:15 Trend VS was scanned into Education Everytime and attached to record. gb Administered Medications: 12/16 12:27 Drug: NS 0.9% 1000 ml [sodium chloride 0.9 % intravenous solution] Route: IV; Rate: ms2 bolus; Site: right antecubital; 14:13 Follow up: IV Status: Infusion discontinued; IV Intake: 500ml jjr 13:12 Drug: ketorolac 30 mg [ketorolac 30 mg/mL (1 mL) injection solution (1 mL)] Route: IVP; ms2 Site: right antecubital; 13:16 Follow up: BP 111 / 65; Pulse 86 bpm; Resp 20 bpm Spontaneous; Pulse Ox 100% RA ms2 13:14 Drug: Metoclopramide 10 mg [metoclopramide 5 mg/mL injection solution] Route: IV; Rate: ms2 40 mg/hr; Infused Over: 15 mins; Site: right antecubital; 13:40 Follow up: IV Status: Completed infusion jjr Signatures: Dispatcher [employer] Byron Serna,RN RN ms2 Elif Jensen, Reg Reg gb Yohannes Pierce, SERVICE STATION OPERATOR Lake Serrato MD MD br1 Charmaine Starks RN RN jLisa Renae mm15 The chart was reviewed and I authenticate all verbal orders and agree with the evaluation and treatment provided.Corrections: (The following items were deleted from the chart) 12:26 12:14 ETHYL ALCOHOL (ETHANOL)+LAB ordered. EDMS EDMS 13:19 11:34 Allergies: SULFA (SULFONAMIDES) (Anaphylaxis); ms2 ms2 Attachments: 14:42 [facility] Payment Agreement mm15 12/17 09:39 T-Sheet-- Draft Copy gb 14:15 ECG/EKG gb Chart Complete MTDD
== END 2016-12-16 14:17 | disposition home or self-care (01) ==
LOC: M ED 11:17
DX: F44.5 Conversion disorder with seizures or convulsions (principal); F19.10 Other psychoactive substance abuse, uncomplicated; F32.9 Major depressive disorder, single episode, unspecified; M51.9 Unspecified thoracic, thoracolumbar and lumbosacral intervertebral disc disorder; K31.84 Gastroparesis; Z87.19 Personal history of other diseases of the digestive system; Z79.899 Other long term (current) drug therapy; Z79.891 Long term (current) use of opiate analgesic; Z88.2 Allergy status to sulfonamides; Z88.5 Allergy status to narcotic agent
CPT/HCPCS: 70450; 71020; 80048; 80306; 81001; 85025; 93005; 93041; 96361; 96365; 96375; 99285; G0480; J1885; J2765

== ENCOUNTER → 2016-12-18 | Outpatient (CLI) | payer BC, OTHER ==
[~2016-12-18] MED LIST changes: +NORC1TAB4 PO; -NORC5TAB PO
--- NOTE | 2016-12-18 23:47 | ECWPNPC ---
PATIENT NAME: NI RICHMOND : 1980 GENDER: FEMALE VISIT DATE: 12/18/2016 DISCHARGE DATE: 12/18/16 0946 VISIT LOCKED DATE TIME: PHYSICIAN: LUIS BRANDON RESOURCE: LUIS BRANDON REASON FOR APPOINTMENT 1. STOMACH HISTORY OF PRESENT ILLNESS HISTORY OF PRESENT ILLNESS: PAIN THE PATIENT DESCRIBES THE PAIN... FALL RISK SCREENING: SCREENING :NO FALLS IN THE PAST YEAR TODAY'S VISIT: NOTES: RATES PAIN TODAY 4/10. DESCRIBES PAIN CONSTANT, ACHING, THROBBING, PAIN IS CENTERED IN MID ABDOMEN. REPORTS WAS DRIVING ON 12/16/16 WHEN BEGAN TO FEEL FUNNY, PULLED OVER AAND HAD SEIZURE. WAS TRANSPORTED TO HOSPITAL BY AMBULANCE TO ER. NO NEW MEDS. CT OF BRAIN DONE. TO SEE ALLAN REEVES ON 12/26/16. STARTED FEELING BETTER AFTER HYDRATION. REPORTS BACK PAIN IS RETURNING. TOOK MOTRIN AND IS REPORTING DK BROWN GI BLOOD. AFTER WALK YESTERDAY WAS VERY EXHAUSTED. BRINGS TAB OF OXY 10 = 7 TABS. . CURRENT MEDICATIONS TAKING PROMETHAZINE HCL 25 MG TABLET 1 TABLET NEEDED ORALLY Q 6 HRS PRN NAUSEA TAKING ZOLPIDEM TARTRATE 10 MG TABLET 1 TABLET AT BEDTIME NEEDED ORALLY BEFORE BEDTIME MDD=1 TAKING SOMA 350 MG TABLET 1 TABLET ORALLY THREE TIMES A DAY NEEDED FOR SPASM MDD=3 TAKING PROMETHAZINE HCL 25 MG SUPPOSITORY 1 SUPPOSITORY NEEDED RECTAL EVERY Q 8 HRS PRN NAUSEA TAKING FLUOXETINE 1 TAB 20 MG ORALLY DAILY, NOTES: STARTED ON THIS MED 20 MG TAKING OXYCODONE HCL 10 MG TABLET 1 TABLET NEEDED ORALLY EVERY 6 HRS PRN PAIN MDD=4 TAKING EFFEXOR XR 75 MG CAPSULE EXTENDED RELEASE 24 HOUR 1 CAPSULE WITH FOOD ORALLY ONCE A DAY, NOTES: IS TAPERING OFF THIS MED NOT-TAKING ABILIFY 10 MG TABLET 1 TABLET ORALLY ONCE A DAY NOT-TAKING BENTYL 10 MG CAPSULE 1 CAPSULE ORALLY FOUR TIMES A DAY NOT-TAKING FLUOXETINE NOT-TAKING CYCLOBENZAPRINE HCL 10 MG TABLET 1 TABLET ORALLY THREE TIMES A DAY NOT-TAKING SOMA 350 MG TABLET 2 TABLET NEEDED ORALLY 2 TIMES A DAY MEDICATION LIST REVIEWED AND RECONCILED WITH THE PATIENT PAST MEDICAL HISTORY DEPRESSION/ANXIETY HYDRATION ISSUES HX OF MRSA BACK PROBLEM ALLERGIES SULFA (FOR ALLERGY USE ONLY): ANAPHYLAXIS: ALLERGY FENTANYL: HEART RATE FLUCTUATIONS: ALLERGY SOCIAL HISTORY GENERAL: TOBACCO USE ARE YOU A: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 NEW PATIENT PAIN DIARY TODAY'S VISITNOTES FROM 0-10, WHAT LEVEL IS YOUR PAIN TODAY?0 PAIN CLINIC PFS, CLERGY, PUBLIC HEALTH REFERRALS PFS REFERRAL NEEDED?NO CLERGY REFERRAL NEEDED?NO PUBLIC HEALTH REFERRAL NEEDED?NO WAS THE PROVIDER NOTIFIED OF ANY PERTINENT INFO?NO PFS REFERRAL NEEDED?NO CLERGY REFERRAL NEEDED?NO PUBLIC HEALTH REFERRAL NEEDED?NO WAS THE PROVIDER NOTIFIED OF ANY PERTINENT INFO?NO REVIEW OF SYSTEMS CONSTITUTIONAL: ANY CHANGE IN YOUR MEDICAL CONDITION? NO . CHILLS NO . FEVER NO . INFECTION: DO YOU HAVE NEW INFECTIONS? NO . DO YOU HAVE HISTORY OF MRSA? NO . MUSCULOSKELETAL: ANY NEW PATTERNS OF PAIN OR NUMBNESS? NO . GASTROENTEROLOGY: ANY NEW CHANGE IN BOWEL CONTROL? NO . GENITOURINARY: ANY NEW CHANGE IN BLADDER CONTROL? NO . IS THERE A CHANCE YOU COULD BE ? NO . HEMATOLOGY/LYMPH: DO YOU TAKE ANY BLOOD THINNERS? (FOR EXAMPLE- COUMADIN, PLAVIX, AGGRENOX, PLATEL, PRADAXA, OR XARELTO) NO . WHEN WAS YOUR LAST DOSE? DATE: TIME: . NEUROLOGY: HAVE YOU FALLEN IN THE PAST 6 MONTHS? NO . ANY NEW EXTREMITY NUMBNESS OR WEAKNESS? NO . CARDIOLOGY: DO YOU HAVE A PACEMAKER OR DEFIBRILLATOR? NO . RESPIRATORY: HAVE YOU BEEN SICK IN THE PAST WEEK? NO . FEVER NO . FLU LIKE SYMPTOMS? NO . COUGH NO . INTEGUMENTARY: DO YOU HAVE ANY RASHES OR OPEN SORES? NO . ALLERGIC/IMMUNO: ARE YOU ALLERGIC TO SHELLFISH OR IV DYE? NO . ANY NEW ALLERGIES? NO . PSYCHIATRIC: DO YOU HAVE THOUGHTS OF HURTING YOURSELF OR SOMEONE ELSE? NO . ARE YOU ABUSED, NEGLECTED, OR IN AN UNSAFE ENVIRONMENT? NO . ENDOCRINOLOGY: ARE YOU DIABETIC? NO . OTHER: DO YOU NEED ANY PRESCRIPTIONS? NO . IF YES, PLEASE LIST: ____ . ANY NEW PROBLEMS WITH YOUR MEDICATIONS? NO . WHEN DID YOU LAST EAT? ____ . WHEN DID YOU LAST DRINK? ____ . WHAT DID YOU LAST DRINK? ____ . NAME OF PERSON DRIVING YOU HOME? ____ . DO YOU HAVE ANY OTHER QUESTIONS OR CONCERNS NO . PSYCHOLOGY: ANXIETY WILL BE CALLING [facility] TODAY TO GET COUNSELOR SET UP. VERY FRUSTRATED ABOUT THE IDEA OF ANY TUBES, OR IV ACCESS . REVIEWED BY: PROVIDER: LUIS DALEY . VITAL SIGNS WT 140 LBS, HT 66 IN, BMI 22.59 INDEX, BP 152/82 MM HG, HR 105 /MIN, RR 16 /MIN, TEMP 97.0 F, OXYGEN SAT % 99, NA INITIALS TL 0843, REVIEWED BY: CS. EXAMINATION GENERAL EXAMINATION: GENERAL APPEARANCE:COLOR PINK. PSYCHALERT , ORIENTED X 3 , APPROPRIATE MOOD AND AFFECT, TEARFUL AT TIMES . LUNGS:CLEAR TO AUSCULTATION BILATERALLY. HEART:HEART RATE REGULAR. ABDOMEN:TENDER IN EPIGASTRIC REGION. NO DISTENTION. BOWEL SOUNDS SCTIVE. ASSESSMENTS EPIGASTRIC PAIN - R10.13 (PRIMARY) CHRONICALLY ON OPIATE THERAPY - Z79.899 TREATMENT EPIGASTRIC PAIN NOTES: FOLLOW UP WITH DR ESTES FOR SEIZURE ACTIVITY. KEEP SATURDAY APPOINTMENTTAKE OXY 10 MG AM AND PM AND 15 MG TAB IN MIDDAY. BRING MED BINDER AND ALL MED BOTTLES ON SATURDAY. BRING [facility] INFO ON SATURDAY. USE CARAFATE TWICE A DAY UNTIL SATURDAY. NO MOTRIN. PROCEDURE CODES FA211 ESTABILISHED PATIENT [facility] CHARGE DISPOSITION & COMMUNICATION FOLLOW UP KEEP SATURDAY APPOINTMENT ELECTRONICALLY SIGNED BY RYLEY CROOK ON 12/18/2016 AT 10:49 AM EST DISCLAIMER : THIS IS A VISIT SUMMARY EXTRACTED FROM THE [employer] CHART. IT IS NOT A COPY OF THE [employer] PROGRESS NOTE. HAILEY
== END ==
LOC: M PAIN 08:40
PROVIDERS: ATTEND Nurse Practitioner Family
DX: G89.29 Other chronic pain (principal); R10.13 Epigastric pain; F32.9 Major depressive disorder, single episode, unspecified; F41.9 Anxiety disorder, unspecified; Z86.14 Personal history of Methicillin resistant Staphylococcus aureus infection; Z88.2 Allergy status to sulfonamides; Z88.5 Allergy status to narcotic agent; Z79.899 Other long term (current) drug therapy

== ENCOUNTER → 2016-12-21 | Outpatient (CLI) | payer BC, OTHER ==
--- NOTE | 2016-12-21 23:46 | ECWPNPC ---
PATIENT NAME: NI RICHMOND : 1980 GENDER: FEMALE VISIT DATE: 12/21/2016 DISCHARGE DATE: 12/21/16 1017 VISIT LOCKED DATE TIME: PHYSICIAN: LUIS BRANDON RESOURCE: LUIS BRANDON REASON FOR APPOINTMENT 1. STOMACH HISTORY OF PRESENT ILLNESS HISTORY OF PRESENT ILLNESS: PAIN THE PATIENT DESCRIBES THE PAIN... FALL RISK SCREENING: SCREENING :NO FALLS IN THE PAST YEAR TODAY'S VISIT: NOTES: RATES PAIN TODAY 6/10. NOTES NO MAJOR CHANGES IN ABDOMENAL PAINHAS CONTINUED TO HAVE NAUSEA/VOMITING. 3-4 TIMES YESTERDAY. BOWELARE ARE LIQUID, NO BLOOD, NO MUCOUS, FAIR AMOUNT. HAS BEEN ABLE TO KEEP DOWN SMALL AMOUNTS OF WATER AND GATORADE. STATES HAS HAD NO RECURRENT SEIZURES. CURRENT MEDICATIONS TAKING PROMETHAZINE HCL 25 MG TABLET 1 TABLET NEEDED ORALLY Q 6 HRS PRN NAUSEA TAKING ZOLPIDEM TARTRATE 10 MG TABLET 1 TABLET AT BEDTIME NEEDED ORALLY BEFORE BEDTIME MDD=1 TAKING SOMA 350 MG TABLET 1 TABLET ORALLY THREE TIMES A DAY NEEDED FOR SPASM MDD=3 TAKING PROMETHAZINE HCL 25 MG SUPPOSITORY 1 SUPPOSITORY NEEDED RECTAL EVERY Q 8 HRS PRN NAUSEA TAKING FLUOXETINE 1 TAB 20 MG ORALLY DAILY, NOTES: STARTED ON THIS MED 20 MG TAKING OXYCODONE HCL 10 MG TABLET 1 TABLET NEEDED ORALLY EVERY 6 HRS PRN PAIN MDD=4 TAKING EFFEXOR XR 75 MG CAPSULE EXTENDED RELEASE 24 HOUR 1 CAPSULE WITH FOOD ORALLY ONCE A DAY, NOTES: IS TAPERING OFF THIS MED NOT-TAKING ABILIFY 10 MG TABLET 1 TABLET ORALLY ONCE A DAY NOT-TAKING BENTYL 10 MG CAPSULE 1 CAPSULE ORALLY FOUR TIMES A DAY NOT-TAKING FLUOXETINE NOT-TAKING CYCLOBENZAPRINE HCL 10 MG TABLET 1 TABLET ORALLY THREE TIMES A DAY NOT-TAKING SOMA 350 MG TABLET 2 TABLET NEEDED ORALLY 2 TIMES A DAY MEDICATION LIST REVIEWED AND RECONCILED WITH THE PATIENT PAST MEDICAL HISTORY DEPRESSION/ANXIETY HYDRATION ISSUES HX OF MRSA BACK PROBLEM ALLERGIES SULFA (FOR ALLERGY USE ONLY): ANAPHYLAXIS: ALLERGY FENTANYL: HEART RATE FLUCTUATIONS: ALLERGY SOCIAL HISTORY GENERAL: TOBACCO USE ARE YOU A: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 NEW PATIENT PAIN DIARY TODAY'S VISITNOTES FROM 0-10, WHAT LEVEL IS YOUR PAIN TODAY?0 PAIN CLINIC PFS, CLERGY, PUBLIC HEALTH REFERRALS PFS REFERRAL NEEDED?NO CLERGY REFERRAL NEEDED?NO PUBLIC HEALTH REFERRAL NEEDED?NO WAS THE PROVIDER NOTIFIED OF ANY PERTINENT INFO?NO PFS REFERRAL NEEDED?NO CLERGY REFERRAL NEEDED?NO PUBLIC HEALTH REFERRAL NEEDED?NO WAS THE PROVIDER NOTIFIED OF ANY PERTINENT INFO?NO REVIEW OF SYSTEMS CONSTITUTIONAL: ANY CHANGE IN YOUR MEDICAL CONDITION? NO . CHILLS NO . FEVER NO . INFECTION: DO YOU HAVE NEW INFECTIONS? NO . DO YOU HAVE HISTORY OF MRSA? YES YEARS AGO ON EYE LID AND STOMACH . MUSCULOSKELETAL: ANY NEW PATTERNS OF PAIN OR NUMBNESS? NO . GASTROENTEROLOGY: ANY NEW CHANGE IN BOWEL CONTROL? NO . GENITOURINARY: ANY NEW CHANGE IN BLADDER CONTROL? NO . IS THERE A CHANCE YOU COULD BE ? NO . HEMATOLOGY/LYMPH: DO YOU TAKE ANY BLOOD THINNERS? (FOR EXAMPLE- COUMADIN, PLAVIX, AGGRENOX, PLATEL, PRADAXA, OR XARELTO) NO . WHEN WAS YOUR LAST DOSE? DATE: TIME: . NEUROLOGY: HAVE YOU FALLEN IN THE PAST 6 MONTHS? NO . ANY NEW EXTREMITY NUMBNESS OR WEAKNESS? NO . CARDIOLOGY: DO YOU HAVE A PACEMAKER OR DEFIBRILLATOR? NO . RESPIRATORY: HAVE YOU BEEN SICK IN THE PAST WEEK? NO . FEVER NO . FLU LIKE SYMPTOMS? NO . COUGH NO . INTEGUMENTARY: DO YOU HAVE ANY RASHES OR OPEN SORES? NO . ALLERGIC/IMMUNO: ARE YOU ALLERGIC TO SHELLFISH OR IV DYE? NO . ANY NEW ALLERGIES? NO . PSYCHIATRIC: DO YOU HAVE THOUGHTS OF HURTING YOURSELF OR SOMEONE ELSE? NO . ARE YOU ABUSED, NEGLECTED, OR IN AN UNSAFE ENVIRONMENT? NO . ENDOCRINOLOGY: ARE YOU DIABETIC? NO . OTHER: DO YOU NEED ANY PRESCRIPTIONS? YES . IF YES, PLEASE LIST: ____OXYCODONE . ANY NEW PROBLEMS WITH YOUR MEDICATIONS? NO . WHEN DID YOU LAST EAT? ____ . WHEN DID YOU LAST DRINK? ____ . WHAT DID YOU LAST DRINK? ____ . NAME OF PERSON DRIVING YOU HOME? ____ . DO YOU HAVE ANY OTHER QUESTIONS OR CONCERNS NO . REVIEWED BY: PROVIDER: LUIS HOLLANDP . VITAL SIGNS WT 140 LBS, HT 66 IN, BMI 22.59 INDEX, BP 118/69 MM HG, HR 94 /MIN, RR 16 /MIN, TEMP 97.1 F, OXYGEN SAT % 100, NA INITIALS TL 0915, REVIEWED BY: AD. EXAMINATION GENERAL EXAMINATION: GENERAL APPEARANCE:COLOR PALE. PSYCHALERT , ORIENTED X 3 , APPROPRIATE MOOD AND AFFECT. LUNGS:CLEAR TO AUSCULTATION BILATERALLY. HEART:HEART RATE REGULAR. ABDOMEN:TENDER IN EPIGASTRIC REGION. NO DISTENTION. BOWEL SOUNDS HYPERACTIVE. ASSESSMENTS EPIGASTRIC PAIN - R10.13 (PRIMARY) CHRONICALLY ON OPIATE THERAPY - Z79.899 TREATMENT EPIGASTRIC PAIN START OXYCODONE HCL SOLUTION, 5 MG/5ML, 5 ML -1O ML NEEDED, ORALLY, EVERY 6 HRS PRN PAIN MDD=40 ML/DAY, 7 DAYS, 280, REFILLS 0 START ZOFRAN ODT TABLET DISPERSIBLE, 8 MG, DIRECTED, ORALLY, Q 6 HRS PRN NAUSEA, 30 DAY(S), 90, REFILLS 2 CLINICAL NOTES: ISTOP REGISTRY REVIEWED AND DEMNOSTRATES COMPLLIANCE. BRINGS IN MEDICATIONS WHICH IS APPROPRIATE FOR WHAT WAS DISPENSED. RECENT URINE TOXICOLOGY REVIEWED. NO UNAUTHORIZED MEDICATIONS. NO ILLICIT SUBSTANCES AND PRESCRIBED MEDICATIONS WERE PRESENT. PT BROUGHT COPY OF NOTES FROM DR PJ REY DEPT OF GASTROENTEROLOGY/HEPTOLOGY AT [facility] AND THIS HAS PROVIDED SOME CLARITY. WILL CHANGE TO LIQUID OXYCODONE AND CHECK FOR IMPROVED ABSORPTION WITH UTOX. IF STILL NO ABSORPTION WILL CONTACT DR REY REGARDING THEIR THOUGHTS FOR PAIN CONTROL. PREVENTIVE MEDICINE INFORMATION ON HCP GIVEN TO AND EXPLAINED TO PATIENT AND SHE VERALIZED UNDERSTANDING. PROCEDURE CODES FA211 ESTABILISHED PATIENT [facility] CHARGE DISPOSITION & COMMUNICATION FOLLOW UP 12/28/16 FIRST OF AM ELECTRONICALLY SIGNED BY RYLEY CROOK ON 12/21/2016 AT 05:27 PM EST DISCLAIMER : THIS IS A VISIT SUMMARY EXTRACTED FROM THE [employer] CHART. IT IS NOT A COPY OF THE [employer] PROGRESS NOTE. LEOND
== END ==
LOC: M PAIN 09:00
PROVIDERS: ATTEND Nurse Practitioner Family
DX: G89.29 Other chronic pain (principal); R10.13 Epigastric pain; F32.9 Major depressive disorder, single episode, unspecified; F41.9 Anxiety disorder, unspecified; Z79.899 Other long term (current) drug therapy; Z86.14 Personal history of Methicillin resistant Staphylococcus aureus infection

== ENCOUNTER → 2016-12-26 | Outpatient (REF) | payer OTHER ==
[~2016-12-26] MED LIST changes: -NORC1TAB4 PO; +NORC5TAB PO
[2016-12-26 14:12] LABS: ALBUMIN 4.1 GM/DL (3.2-5.2); ALBUMIN/GLOBULIN RATIO 1.14 (1.00-1.93); ALKALINE PHOSPHATASE 214 U/L (45-117); ALT/SGPT 83 U/L (12-78); ANION GAP 13 MEQ/L (8-16); AST/SGOT 42 U/L (15-37); BILIRUBIN,TOTAL 0.3 MG/DL (0.2-1.0); BLOOD UREA NITROGEN 4 MG/DL (7-18); CALCIUM LEVEL 9.2 MG/DL (8.5-10.1); CARBON DIOXIDE LEVEL 27 MEQ/L (21-32); CHLORIDE LEVEL 101 MEQ/L (98-107); CREATININE FOR GFR 0.56 MG/DL (0.55-1.02); GLOMERULAR FILTRATION RATE > 60.0 (>60); GLUCOSE, FASTING 97 MG/DL (70-105); POTASSIUM SERUM 3.7 MEQ/L (3.5-5.1); SODIUM LEVEL 141 MEQ/L (136-145); TOTAL PROTEIN 7.7 GM/DL (6.4-8.2)
[2016-12-26 14:29] LABS: BASO % 0.3 % (0.0-1.0); EOS # 0.2 K/mm3 (0.0-0.50); EOS % 3.7 % (0.0-3.0); LARGE UNSTAINED CELL # 0.1 K/mm3 (0.0-0.4); LARGE UNSTAINED CELL % 1.8 % (0.0-4.0); LYMPH % 20.6 % (24.0-44.0); MEAN CORPUSCULAR HEMOGLOBIN 22.5 pg (27.0-33.0); MEAN CORPUSCULAR HGB CONC 29.8 g/dl (32.0-36.5); MEAN CORPUSCULAR VOLUME 75.3 fl (80.0-96.0); MONO # 0.2 K/mm3 (0.0-0.8); MONO % 5.3 % (0.0-5.0); NEUTROPHILS # 3.2 K/mm3 (1.8-7.7); NEUTROPHILS % 68.3 % (36.0-66.0); PLATELET COUNT, AUTOMATED 556 k/mm3 (150-450); RED CELL DISTRIBUTION WIDTH 16.5 % (11.5-14.5); WHITE BLOOD COUNT 4.6 K/mm3 (4.0-10.0)
[2016-12-26 15:30] LABS: ERYTHROCYTE SEDIMENTATION RATE 58 mm/hr (0-20)
== END ==
LOC: M LABNEURO 13:11
PROVIDERS: ATTEND Psychiatry & Neurology Neurology
DX: R56.9 Unspecified convulsions (principal)

== ENCOUNTER → 2016-12-28 | Outpatient (CLI) | payer BC, OTHER ==
[~2016-12-28] MED LIST changes: +NORC1TAB4 PO; -NORC5TAB PO
--- NOTE | 2017-01-03 23:42 | ECWPNPC ---
PATIENT NAME: NI RICHMOND : 1980 GENDER: FEMALE VISIT DATE: 12/28/2016 DISCHARGE DATE: 12/28/16 0950 VISIT LOCKED DATE TIME: PHYSICIAN: LUIS BRANDON RESOURCE: LUIS BRANDON REASON FOR APPOINTMENT 1. STOMACH HISTORY OF PRESENT ILLNESS HISTORY OF PRESENT ILLNESS: PAIN THE PATIENT DESCRIBES THE PAIN... FALL RISK SCREENING: SCREENING :NO FALLS IN THE PAST YEAR TODAY'S VISIT: NOTES: LIQUID OXYCODONE WORKS BETTER. LEAVING FOR [place] FOR A WEEKS WORK OF TESTING AND THEN WILL BE COMING UP WITH A PLAN. RATES PAIN TODAY 4/10. PAIN REMAINS CENTERED IN EPIGASTRIC REGION BUT SINCE STARTING KEPPRA IS NOTING LESS UNCONTROLLED MUSCLE SPASMS. . CURRENT MEDICATIONS TAKING PROMETHAZINE HCL 25 MG TABLET 1 TABLET NEEDED ORALLY Q 6 HRS PRN NAUSEA TAKING ZOLPIDEM TARTRATE 10 MG TABLET 1 TABLET AT BEDTIME NEEDED ORALLY BEFORE BEDTIME MDD=1 TAKING SOMA 350 MG TABLET 1 TABLET ORALLY THREE TIMES A DAY NEEDED FOR SPASM MDD=3 TAKING PROMETHAZINE HCL 25 MG SUPPOSITORY 1 SUPPOSITORY NEEDED RECTAL EVERY Q 8 HRS PRN NAUSEA TAKING FLUOXETINE 1 TAB 20 MG ORALLY DAILY TAKING OXYCODONE HCL 10 MG TABLET 1 TABLET NEEDED ORALLY EVERY 6 HRS PRN PAIN MDD=4 TAKING OXYCODONE HCL 5 MG/5ML SOLUTION 5 ML -1O ML NEEDED ORALLY EVERY 6 HRS PRN PAIN MDD=40 ML/DAY TAKING ZOFRAN ODT 8 MG TABLET DISPERSIBLE DIRECTED ORALLY Q 6 HRS PRN NAUSEA TAKING KEPPRA 500 MG TABLET ORALLY TWICE A DAY TAKING ATIVAN 1 MG TABLET 1 TAB ORALLY UP TO 3 TIMES A DAY NEEDED TAKING ROCEPHIN 1 GM SOLUTION RECONSTITUTED INJECTION EVERY DAY NOT-TAKING EFFEXOR XR 75 MG CAPSULE EXTENDED RELEASE 24 HOUR 1 CAPSULE WITH FOOD ORALLY ONCE A DAY, NOTES: IS TAPERING OFF THIS MED NOT-TAKING ABILIFY 10 MG TABLET 1 TABLET ORALLY ONCE A DAY NOT-TAKING BENTYL 10 MG CAPSULE 1 CAPSULE ORALLY FOUR TIMES A DAY NOT-TAKING FLUOXETINE NOT-TAKING CYCLOBENZAPRINE HCL 10 MG TABLET 1 TABLET ORALLY THREE TIMES A DAY NOT-TAKING SOMA 350 MG TABLET 2 TABLET NEEDED ORALLY 2 TIMES A DAY MEDICATION LIST REVIEWED AND RECONCILED WITH THE PATIENT PAST MEDICAL HISTORY DEPRESSION/ANXIETY HYDRATION ISSUES HX OF MRSA BACK PROBLEM ALLERGIES SULFA (FOR ALLERGY USE ONLY): ANAPHYLAXIS: ALLERGY FENTANYL: HEART RATE FLUCTUATIONS: ALLERGY SOCIAL HISTORY GENERAL: TOBACCO USE ARE YOU A: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 NEW PATIENT PAIN DIARY TODAY'S VISITNOTES FROM 0-10, WHAT LEVEL IS YOUR PAIN TODAY?0 PAIN CLINIC PFS, CLERGY, PUBLIC HEALTH REFERRALS PFS REFERRAL NEEDED?NO CLERGY REFERRAL NEEDED?NO PUBLIC HEALTH REFERRAL NEEDED?NO WAS THE PROVIDER NOTIFIED OF ANY PERTINENT INFO?NO PFS REFERRAL NEEDED?NO CLERGY REFERRAL NEEDED?NO PUBLIC HEALTH REFERRAL NEEDED?NO WAS THE PROVIDER NOTIFIED OF ANY PERTINENT INFO?NO REVIEW OF SYSTEMS CONSTITUTIONAL: ANY CHANGE IN YOUR MEDICAL CONDITION? NO . CHILLS NO . FEVER NO . INFECTION: DO YOU HAVE NEW INFECTIONS? NO . DO YOU HAVE HISTORY OF MRSA? NO . MUSCULOSKELETAL: ANY NEW PATTERNS OF PAIN OR NUMBNESS? NO . GASTROENTEROLOGY: ANY NEW CHANGE IN BOWEL CONTROL? NO . GENITOURINARY: ANY NEW CHANGE IN BLADDER CONTROL? NO . IS THERE A CHANCE YOU COULD BE ? NO . HEMATOLOGY/LYMPH: DO YOU TAKE ANY BLOOD THINNERS? (FOR EXAMPLE- COUMADIN, PLAVIX, AGGRENOX, PLATEL, PRADAXA, OR XARELTO) NO . WHEN WAS YOUR LAST DOSE? DATE: TIME: . NEUROLOGY: HAVE YOU FALLEN IN THE PAST 6 MONTHS? NO . ANY NEW EXTREMITY NUMBNESS OR WEAKNESS? NO . SEIZURES NOW STARTED ON SEIZURE MEDS. DR Shivam REEVES WAS ABLE TO FIND OLD EEG WHICH DEMONSTRATED EPILEPSY. IS VERY CONCERNED ABOUT SE FOR WENDY . CARDIOLOGY: DO YOU HAVE A PACEMAKER OR DEFIBRILLATOR? NO . RESPIRATORY: HAVE YOU BEEN SICK IN THE PAST WEEK? NO . FEVER NO . FLU LIKE SYMPTOMS? NO . COUGH NO . INTEGUMENTARY: DO YOU HAVE ANY RASHES OR OPEN SORES? NO . ALLERGIC/IMMUNO: ARE YOU ALLERGIC TO SHELLFISH OR IV DYE? NO . ANY NEW ALLERGIES? NO . PSYCHIATRIC: DO YOU HAVE THOUGHTS OF HURTING YOURSELF OR SOMEONE ELSE? NO . ARE YOU ABUSED, NEGLECTED, OR IN AN UNSAFE ENVIRONMENT? NO . ENDOCRINOLOGY: ARE YOU DIABETIC? NO . OTHER: DO YOU NEED ANY PRESCRIPTIONS? YES . IF YES, PLEASE LIST: OXYCODONE . ANY NEW PROBLEMS WITH YOUR MEDICATIONS? NO . WHEN DID YOU LAST EAT? ____ . WHEN DID YOU LAST DRINK? ____ . WHAT DID YOU LAST DRINK? ____ . NAME OF PERSON DRIVING YOU HOME? ____ . DO YOU HAVE ANY OTHER QUESTIONS OR CONCERNS NO . REVIEWED BY: PROVIDER: LUIS DALEY . VITAL SIGNS WT 140 LBS, HT 66 IN, BMI 22.59 INDEX, BP 134/86 MM HG, HR 97 /MIN, RR 16 /MIN, TEMP 97.2 F, OXYGEN SAT % 100, NA INITIALS TL 0856, REVIEWED BY: CS. EXAMINATION GENERAL EXAMINATION: GENERAL APPEARANCE:COLOR PALE, BUT IMPROVED. PSYCHALERT , ORIENTED X 3 , APPROPRIATE MOOD AND AFFECT. ABLE TO SMILE TODAY. LUNGS:CLEAR TO AUSCULTATION BILATERALLY. HEART:HEART RATE REGULAR. ABDOMEN:TENDER IN EPIGASTRIC REGION. NO DISTENTION. BOWEL SOUNDS HYPERACTIVE. ASSESSMENTS EPIGASTRIC PAIN - R10.13 (PRIMARY) CHRONICALLY ON OPIATE THERAPY - Z79.899 TREATMENT EPIGASTRIC PAIN REFILL OXYCODONE HCL SOLUTION, 5 MG/5ML, 5 ML -1O ML NEEDED, ORALLY, EVERY 6 HRS PRN PAIN MDD=40 ML/DAY, 14 DAY(S), 560 MILLILITER, REFILLS 0 NOTES: CONTINUE CURRENT MEDS. PROCEDURE CODES FA211 ESTABILISHED PATIENT [facility] CHARGE DISPOSITION & COMMUNICATION FOLLOW UP 2 WEEKS 01/11 EARLY ELECTRONICALLY SIGNED BY RYLEY CROOK ON 01/03/2017 AT 08:39 AM EDT DISCLAIMER : THIS IS A VISIT SUMMARY EXTRACTED FROM THE [employer] CHART. IT IS NOT A COPY OF THE [employer] PROGRESS NOTE. HAILEY
== END ==
LOC: M PAIN 08:40
PROVIDERS: ATTEND Nurse Practitioner Family
DX: G89.29 Other chronic pain (principal); R10.13 Epigastric pain; F32.9 Major depressive disorder, single episode, unspecified; Z88.2 Allergy status to sulfonamides; Z88.5 Allergy status to narcotic agent; Z79.899 Other long term (current) drug therapy; Z79.891 Long term (current) use of opiate analgesic; Z86.14 Personal history of Methicillin resistant Staphylococcus aureus infection

== ENCOUNTER → 2017-01-11 | Outpatient (CLI) | payer OTHER ==
[~2017-01-11] MED LIST changes: -NORC1TAB4 PO; +NORC5TAB PO
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
== END | disposition home or self-care (01) ==
LOC: M PAIN 09:20
PROVIDERS: ATTEND Nurse Practitioner Family
DX: G89.29 Other chronic pain (principal); R10.13 Epigastric pain; M96.1 Postlaminectomy syndrome, not elsewhere classified; F33.9 Major depressive disorder, recurrent, unspecified; F41.9 Anxiety disorder, unspecified; Z86.14 Personal history of Methicillin resistant Staphylococcus aureus infection; Z79.899 Other long term (current) drug therapy; Z88.2 Allergy status to sulfonamides; Z88.8 Allergy status to other drugs, medicaments and biological substances

== ENCOUNTER → 2017-02-20 | Outpatient (CLI) | payer OTHER ==
[~2017-02-20] MED LIST changes: +NORC1TAB4 PO; -NORC5TAB PO
--- NOTE | 2017-03-16 00:24 | ECWPNPC ---
PATIENT NAME: NI RICHMOND : 1980 GENDER: FEMALE VISIT DATE: 02/20/2017 DISCHARGE DATE: 02/20/17 1220 VISIT LOCKED DATE TIME: PHYSICIAN: LUIS BRANDON RESOURCE: LUIS BRANDON REASON FOR APPOINTMENT 1. STOMACH HISTORY OF PRESENT ILLNESS HISTORY OF PRESENT ILLNESS: PAIN THE PATIENT DESCRIBES THE PAIN... FALL RISK SCREENING: SCREENING :NO FALLS IN THE PAST YEAR TODAY'S VISIT: NOTES: JUST RETURNED FROM [place] 02/15/18. HAD SOME TESTING UNDER ANESTHESIA - HAD SZ UNDER ANESTHESIA. WAS SEEN X 1 BY NEUROLOGY. HAD UPDATED EEG 02/08/17 - DR Shivam REEVES WANTS TO DO MED ADJUSTED. DID HAVE A PARTIAL DILATION - MEDS ARE ABSORBING. NO SZ IN LAST 5 DAYS. . CURRENT MEDICATIONS TAKING PROMETHAZINE HCL 25 MG TABLET 1 TABLET NEEDED ORALLY Q 6 HRS PRN NAUSEA TAKING ZOLPIDEM TARTRATE 10 MG TABLET 1 TABLET AT BEDTIME NEEDED ORALLY BEFORE BEDTIME MDD=1 TAKING SOMA 350 MG TABLET 1 TABLET ORALLY THREE TIMES A DAY NEEDED FOR SPASM MDD=3 TAKING PROMETHAZINE HCL 25 MG SUPPOSITORY 1 SUPPOSITORY NEEDED RECTAL EVERY Q 8 HRS PRN NAUSEA TAKING FLUOXETINE 1 TAB 20 MG ORALLY DAILY TAKING ZOFRAN ODT 8 MG TABLET DISPERSIBLE DIRECTED ORALLY Q 6 HRS PRN NAUSEA TAKING KEPPRA 500 MG TABLET ORALLY TWICE A DAY TAKING ATIVAN 1 MG TABLET 1 TAB ORALLY UP TO 3 TIMES A DAY NEEDED TAKING OXYCODONE HCL 5 MG/5ML SOLUTION 5 ML -1O ML NEEDED ORALLY EVERY 6 HRS PRN PAIN MDD=40 ML/DAY TAKING OXYCODONE HCL 10 MG TABLET 1 TABLET ORALLY EVERY 4- 6 HRS PRN PAIN MDD=4 NOT-TAKING OXYCODONE HCL 10 MG TABLET 1 TABLET NEEDED ORALLY EVERY 6 HRS PRN PAIN MDD=4 NOT-TAKING ROCEPHIN 1 GM SOLUTION RECONSTITUTED INJECTION EVERY DAY NOT-TAKING EFFEXOR XR 75 MG CAPSULE EXTENDED RELEASE 24 HOUR 1 CAPSULE WITH FOOD ORALLY ONCE A DAY, NOTES: IS TAPERING OFF THIS MED NOT-TAKING ABILIFY 10 MG TABLET 1 TABLET ORALLY ONCE A DAY NOT-TAKING BENTYL 10 MG CAPSULE 1 CAPSULE ORALLY FOUR TIMES A DAY NOT-TAKING FLUOXETINE NOT-TAKING CYCLOBENZAPRINE HCL 10 MG TABLET 1 TABLET ORALLY THREE TIMES A DAY NOT-TAKING SOMA 350 MG TABLET 2 TABLET NEEDED ORALLY 2 TIMES A DAY MEDICATION LIST REVIEWED AND RECONCILED WITH THE PATIENT PAST MEDICAL HISTORY DEPRESSION/ANXIETY HYDRATION ISSUES HX OF MRSA BACK PROBLEM ALLERGIES SULFA (FOR ALLERGY USE ONLY): ANAPHYLAXIS: ALLERGY FENTANYL: HEART RATE FLUCTUATIONS: ALLERGY NSAIDS: GI BLEED: CONTRAINDICATION REVIEW OF SYSTEMS CONSTITUTIONAL: ANY CHANGE IN YOUR MEDICAL CONDITION? NO . CHILLS NO . FEVER NO . INFECTION: DO YOU HAVE NEW INFECTIONS? NO . DO YOU HAVE HISTORY OF MRSA? NO . MUSCULOSKELETAL: ANY NEW PATTERNS OF PAIN OR NUMBNESS? NO . GASTROENTEROLOGY: ANY NEW CHANGE IN BOWEL CONTROL? NO . GENITOURINARY: ANY NEW CHANGE IN BLADDER CONTROL? NO . IS THERE A CHANCE YOU COULD BE ? NO . HEMATOLOGY/LYMPH: DO YOU TAKE ANY BLOOD THINNERS? (FOR EXAMPLE- COUMADIN, PLAVIX, AGGRENOX, PLATEL, PRADAXA, OR XARELTO) NO . WHEN WAS YOUR LAST DOSE? DATE: TIME: . NEUROLOGY: HAVE YOU FALLEN IN THE PAST 6 MONTHS? NO . ANY NEW EXTREMITY NUMBNESS OR WEAKNESS? NO . CARDIOLOGY: DO YOU HAVE A PACEMAKER OR DEFIBRILLATOR? NO . RESPIRATORY: HAVE YOU BEEN SICK IN THE PAST WEEK? NO . FEVER NO . FLU LIKE SYMPTOMS? NO . COUGH NO . INTEGUMENTARY: DO YOU HAVE ANY RASHES OR OPEN SORES? NO . ALLERGIC/IMMUNO: ARE YOU ALLERGIC TO SHELLFISH OR IV DYE? NO . ANY NEW ALLERGIES? NO . PSYCHIATRIC: DO YOU HAVE THOUGHTS OF HURTING YOURSELF OR SOMEONE ELSE? NO . ARE YOU ABUSED, NEGLECTED, OR IN AN UNSAFE ENVIRONMENT? NO . ENDOCRINOLOGY: ARE YOU DIABETIC? NO . OTHER: DO YOU NEED ANY PRESCRIPTIONS? YES . IF YES, PLEASE LIST: ZOFRAN, OXY, AND SOMA . ANY NEW PROBLEMS WITH YOUR MEDICATIONS? NO . WHEN DID YOU LAST EAT? ____ . WHEN DID YOU LAST DRINK? ____ . WHAT DID YOU LAST DRINK? ____ . NAME OF PERSON DRIVING YOU HOME? ____ . DO YOU HAVE ANY OTHER QUESTIONS OR CONCERNS NO . REVIEWED BY: PROVIDER: LUIS DALEY . VITAL SIGNS WT 140 LBS, HT 66 IN, BMI 22.59 INDEX, BP 129/69 MM HG, HR 86 /MIN, RR 16 /MIN, TEMP 98.9 F, OXYGEN SAT % 99%, NA INITIALS 11:18. EXAMINATION GENERAL EXAMINATION: GENERAL APPEARANCE:COLOR PALE, BUT IMPROVED. PSYCHALERT , ORIENTED X 3 , APPROPRIATE MOOD AND AFFECT. ABLE TO SMILE TODAY. LUNGS:CLEAR TO AUSCULTATION BILATERALLY. HEART:HEART RATE REGULAR. ABDOMEN:TENDER IN EPIGASTRIC REGION. NO DISTENTION. BOWEL SOUNDS HYPERACTIVE. ASSESSMENTS EPIGASTRIC PAIN - R10.13 (PRIMARY) CHRONICALLY ON OPIATE THERAPY - Z79.899 TREATMENT EPIGASTRIC PAIN REFILL OXYCODONE HCL TABLET, 10 MG, 1 TABLET, ORALLY, EVERY 4- 6 HRS PRN PAIN MDD=5, 30 DAY(S), 150, REFILLS 0 NOTES: CALL IF ASSISTANCE NEEDED. CLINICAL NOTES: ISTOP REGISTRY REVIEWED AND DEMNOSTRATES COMPLLIANCE. BRINGS IN MEDICATIONS WHICH IS APPROPRIATE FOR WHAT WAS DISPENSED. RECENT URINE TOXICOLOGY REVIEWED. NO UNAUTHORIZED MEDICATIONS. NO ILLICIT SUBSTANCES AND PRESCRIBED MEDICATIONS WERE PRESENT. PROCEDURE CODES FA211 ESTABILISHED PATIENT [facility] CHARGE DISPOSITION & COMMUNICATION FOLLOW UP 1 MONTH (REASON: ABD PAIN) ELECTRONICALLY SIGNED BY RYLEY CROOK ON 03/15/2017 AT 02:33 PM EDT DISCLAIMER : THIS IS A VISIT SUMMARY EXTRACTED FROM THE [employer] CHART. IT IS NOT A COPY OF THE [employer] PROGRESS NOTE. HAILEY
== END | disposition home or self-care (01) ==
LOC: M PAIN 11:40
PROVIDERS: ATTEND Nurse Practitioner Family
DX: G89.29 Other chronic pain (principal); R10.13 Epigastric pain; M51.9 Unspecified thoracic, thoracolumbar and lumbosacral intervertebral disc disorder; F41.9 Anxiety disorder, unspecified; F33.9 Major depressive disorder, recurrent, unspecified; Z86.14 Personal history of Methicillin resistant Staphylococcus aureus infection; Z79.899 Other long term (current) drug therapy; Z88.2 Allergy status to sulfonamides; Z88.8 Allergy status to other drugs, medicaments and biological substances

== ENCOUNTER → 2017-03-29 | Outpatient (CLI) | payer BC, OTHER ==
--- NOTE | 2017-03-30 00:05 | ECWPNPC ---
PATIENT NAME: NI RICHMOND : 1980 GENDER: FEMALE VISIT DATE: 03/29/2017 DISCHARGE DATE: 03/29/17 1018 VISIT LOCKED DATE TIME: PHYSICIAN: LUIS BRANDON RESOURCE: LUIS BRANDON REASON FOR APPOINTMENT 1. ABD PAIN HISTORY OF PRESENT ILLNESS HISTORY OF PRESENT ILLNESS: PAIN THE PATIENT DESCRIBES THE PAIN... FALL RISK SCREENING: SCREENING :NO FALLS IN THE PAST YEAR TODAY'S VISIT: NOTES: RATES PAIN LEVEL TODAY 5/10. OXYCODONE TABS WORK LONGER BUT HAS HAD PROBLEM WITH VOMITING,; LIQUID OXYCODONE DOESN'T LAST LONG AND CAUSES NAUSEA. WAS HAVING ISSUESNWITH SEIZURES, WAS TAKEN TO [facility], [facility] FLIGHTED TO [facility]. IS VERY DISTRESSED ABOUT BEING INTUBATED AND THAT HER WISHE]ES WERE NOT BEING FOLLOWED. . THESE LAST FEW DAY HAS BEEN NAUSEATED BUT NO EMESIS. TO SEE DR REEVES NEXT WEEK. . CURRENT MEDICATIONS TAKING PROMETHAZINE HCL 25 MG TABLET 1 TABLET NEEDED ORALLY Q 6 HRS PRN NAUSEA TAKING ZOLPIDEM TARTRATE 10 MG TABLET 1 TABLET AT BEDTIME NEEDED ORALLY BEFORE BEDTIME MDD=1 TAKING PROMETHAZINE HCL 25 MG SUPPOSITORY 1 SUPPOSITORY NEEDED RECTAL EVERY Q 8 HRS PRN NAUSEA TAKING FLUOXETINE 1 TAB 20 MG ORALLY DAILY TAKING ZOFRAN ODT 8 MG TABLET DISPERSIBLE DIRECTED ORALLY Q 6 HRS PRN NAUSEA TAKING KEPPRA 500 MG TABLET ORALLY TWICE A DAY TAKING ATIVAN 1 MG TABLET 1 TAB ORALLY UP TO 3 TIMES A DAY NEEDED TAKING SOMA 350 MG TABLET 1 TABLET ORALLY THREE TIMES A DAY NEEDED FOR SPASM MDD=3 TAKING OXYCODONE HCL 10 MG TABLET 1 TABLET ORALLY EVERY 4- 6 HRS PRN PAIN MDD=5 TAKING OXYCODONE HCL 5 MG/5ML SOLUTION 5 ML -1O ML NEEDED ORALLY EVERY 6 HRS PRN PAIN MDD=40 ML/DAY NOT-TAKING OXYCODONE HCL 10 MG TABLET 1 TABLET NEEDED ORALLY EVERY 6 HRS PRN PAIN MDD=4 NOT-TAKING ROCEPHIN 1 GM SOLUTION RECONSTITUTED INJECTION EVERY DAY NOT-TAKING EFFEXOR XR 75 MG CAPSULE EXTENDED RELEASE 24 HOUR 1 CAPSULE WITH FOOD ORALLY ONCE A DAY, NOTES: IS TAPERING OFF THIS MED NOT-TAKING ABILIFY 10 MG TABLET 1 TABLET ORALLY ONCE A DAY NOT-TAKING BENTYL 10 MG CAPSULE 1 CAPSULE ORALLY FOUR TIMES A DAY NOT-TAKING FLUOXETINE NOT-TAKING CYCLOBENZAPRINE HCL 10 MG TABLET 1 TABLET ORALLY THREE TIMES A DAY NOT-TAKING SOMA 350 MG TABLET 2 TABLET NEEDED ORALLY 2 TIMES A DAY MEDICATION LIST REVIEWED AND RECONCILED WITH THE PATIENT PAST MEDICAL HISTORY DEPRESSION/ANXIETY HYDRATION ISSUES HX OF MRSA BACK PROBLEM ALLERGIES SULFA (FOR ALLERGY USE ONLY): ANAPHYLAXIS: ALLERGY FENTANYL: HEART RATE FLUCTUATIONS: ALLERGY NSAIDS: GI BLEED: CONTRAINDICATION REVIEW OF SYSTEMS CONSTITUTIONAL: ANY CHANGE IN YOUR MEDICAL CONDITION? NO . ANXIETY DENIES THOUGHT OF SUICIDE OR SELF INJURY. HAS MADE FIRM DECISIONS RREGARDING HER CARE INCLUDING NO INTUBATION, AND NO INVASIVE IV'S OR OTHER TREATMENTS. WANTS TO BE KEPT COMFRTABLE . CHILLS NO . FEVER NO . INFECTION: DO YOU HAVE NEW INFECTIONS? NO . DO YOU HAVE HISTORY OF MRSA? NO . MUSCULOSKELETAL: ANY NEW PATTERNS OF PAIN OR NUMBNESS? NO . GASTROENTEROLOGY: ANY NEW CHANGE IN BOWEL CONTROL? NO - NO CONSTIPATION. L GI ULCER IN LOWER BOWEL - STARTED ON COLACE TO HELP WITH THIS. . GENITOURINARY: ANY NEW CHANGE IN BLADDER CONTROL? NO . IS THERE A CHANCE YOU COULD BE ? NO . HEMATOLOGY/LYMPH: DO YOU TAKE ANY BLOOD THINNERS? (FOR EXAMPLE- COUMADIN, PLAVIX, AGGRENOX, PLATEL, PRADAXA, OR XARELTO) NO . WHEN WAS YOUR LAST DOSE? DATE: TIME: . NEUROLOGY: HAVE YOU FALLEN IN THE PAST 6 MONTHS? NO . ANY NEW EXTREMITY NUMBNESS OR WEAKNESS? NO . CARDIOLOGY: DO YOU HAVE A PACEMAKER OR DEFIBRILLATOR? NO . RESPIRATORY: HAVE YOU BEEN SICK IN THE PAST WEEK? NO . FEVER NO . FLU LIKE SYMPTOMS? NO . COUGH NO . INTEGUMENTARY: DO YOU HAVE ANY RASHES OR OPEN SORES? NO . ALLERGIC/IMMUNO: ARE YOU ALLERGIC TO SHELLFISH OR IV DYE? NO . ANY NEW ALLERGIES? NO . PSYCHIATRIC: DO YOU HAVE THOUGHTS OF HURTING YOURSELF OR SOMEONE ELSE? NO . ARE YOU ABUSED, NEGLECTED, OR IN AN UNSAFE ENVIRONMENT? NO . ENDOCRINOLOGY: ARE YOU DIABETIC? NO . OTHER: DO YOU NEED ANY PRESCRIPTIONS? YES . IF YES, PLEASE LIST: SOMA, OXYCODONE, PHENERGAN . ANY NEW PROBLEMS WITH YOUR MEDICATIONS? NO . WHEN DID YOU LAST EAT? ____ . WHEN DID YOU LAST DRINK? ____ . WHAT DID YOU LAST DRINK? ____ . NAME OF PERSON DRIVING YOU HOME? ____ . DO YOU HAVE ANY OTHER QUESTIONS OR CONCERNS NO . REVIEWED BY: PROVIDER: LUIS DALEY . VITAL SIGNS WT 142.6 LBS, HT 66 IN, BMI 23.01 INDEX, BP 122/67 MM HG, HR 107 /MIN, RR 16 /MIN, TEMP 96.5 F, OXYGEN SAT % 98%, NA INITIALS SC 09:03, REVIEWED BY: NL. EXAMINATION GENERAL EXAMINATION: GENERAL APPEARANCE:COLOR PALE, BUT IMPROVED. PSYCHALERT , ORIENTED X 3 , APPROPRIATE MOOD AND AFFECT. ABLE TO SMILE TODAY. VERY TALKATIVE. EXCELLANT HISTORIAN. LUNGS:CLEAR TO AUSCULTATION BILATERALLY. HEART:HEART RATE REGULAR. ABDOMEN:TENDER IN EPIGASTRIC REGION. NO DISTENTION. BOWEL SOUNDS HYPERACTIVE. ASSESSMENTS EPIGASTRIC PAIN - R10.13 (PRIMARY) CHRONICALLY ON OPIATE THERAPY - Z79.899 TREATMENT EPIGASTRIC PAIN REFILL PROMETHAZINE HCL SUPPOSITORY, 25 MG, 1 SUPPOSITORY NEEDED, RECTAL, EVERY Q 8 HRS PRN NAUSEA, 30 DAY(S), 20, REFILLS 1 REFILL SOMA TABLET, 350 MG, 1 TABLET, ORALLY, THREE TIMES A DAY NEEDED FOR SPASM MDD=3, 30 DAY(S), 90, REFILLS 2 REFILL OXYCODONE HCL TABLET, 10 MG, 1 TABLET, ORALLY, EVERY 4- 6 HRS PRN PAIN MDD=5, 30 DAY(S), 150, REFILLS 0 NOTES: CONSIDER OPTION OF LOW DOSE FENTANYL PATCH. FOLLOW UP WITH DR REEVES. CLINICAL NOTES: COPIES OF PATIENT'S MOLST FORM AND DNR HAVE BEEN FILED WITH US. PROCEDURE CODES FA211 ESTABILISHED PATIENT [facility] CHARGE DISPOSITION & COMMUNICATION FOLLOW UP 1 MONTH (REASON: ABD PAIN) ELECTRONICALLY SIGNED BY RYLEY CROOK ON 03/29/2017 AT 05:18 PM EDT ADDENDUM: 03/29/2017 05:23 PM LUIS BRANDON > RECEIVED NOTE FROM PT'S PHARMACY - [facility], THAT THE OXY IR IS NOT COVERED BY HER INSURANCE EVEN THOUGH IT WAS COVERED LAST MONTH. PT/ PICKED UP SCRIPT WITH [employer] PAYMENT. DISCLAIMER : THIS IS A VISIT SUMMARY EXTRACTED FROM THE [employer] CHART. IT IS NOT A COPY OF THE [employer] PROGRESS NOTE. MTDD
== END | disposition home or self-care (01) ==
LOC: M PAIN 09:00
PROVIDERS: ATTEND Nurse Practitioner Family
DX: G89.29 Other chronic pain (principal); R10.13 Epigastric pain; F41.9 Anxiety disorder, unspecified; F33.9 Major depressive disorder, recurrent, unspecified; Z86.14 Personal history of Methicillin resistant Staphylococcus aureus infection; Z98.84 Bariatric surgery status; Z79.899 Other long term (current) drug therapy; Z88.2 Allergy status to sulfonamides; Z88.8 Allergy status to other drugs, medicaments and biological substances

== ENCOUNTER → 2017-04-11 | Outpatient (CLI) | payer BC, OTHER ==
[~2017-04-11] MED LIST changes: +ABIL10TA9 PO; -ABIL1TAB5 PO; +ADDE1TAB14 PO; -ADDE5TAB5 PO; +ATIV1TAB7 PO; +BUTR10DI TD; -BUTR10DI2 TD; -CARA1TAB2 PO; +CARA1TAB6 PO; +CARI350T PO; +CIPR-249 PO; -CIPR500T89 PO; +FENT12PA TD; +FENT25PA TD; +FENT50PA TD; +FLUO20SO PO; -FOLI1TAB2 PO; +FOLI1TAB4 PO; +KEPP1TAB PO; +LORA1TAB12 PO; +META1TAB22 PO; -ONDA1TAB15 PO; +ONDA4TAB5 PO; +ONDA8TAB8 PO; +OXYC10TA12 PO; +OXYC1SOL3 PO; -PERC10TA17 PO; +PERC10TA26 PO; +PHEN1SUP6 PR; +PROM12.55 PO; -PROM125TA PO; +PROZ20CA11 PO; +ROCE1INJ4 INJ; +ZOFR8TAB4 PO; +ZOLP10TA2 PO; +ZOLP12.515 PO
--- NOTE | 2017-05-01 00:40 | ECWPNPC ---
PATIENT NAME: NI RICHMOND : 1980 GENDER: FEMALE VISIT DATE: 04/11/2017 DISCHARGE DATE: 04/11/17 1151 VISIT LOCKED DATE TIME: PHYSICIAN: LUIS BRANDON RESOURCE: LUIS BRANDON HISTORY OF PRESENT ILLNESS HISTORY OF PRESENT ILLNESS: PAIN THE PATIENT DESCRIBES THE PAIN... FALL RISK SCREENING: SCREENING :NO FALLS IN THE PAST YEAR TODAY'S VISIT: NOTES: RATES PAIN TODAY . WAS RECENTLY STARTED ON FENTANYL PATCH WAS NOT ABLE TO TOLERATE ORAL MEDS. HAD REPORTED HAVING HEMATEMESIS. IS HAVING BLACK AND BRIGHT RED BLOOD IN STOOL, AND C EMESIS. CARAFATE CAN HELP IF STAYS DOWN. . CURRENT MEDICATIONS TAKING PROMETHAZINE HCL 25 MG TABLET 1 TABLET NEEDED ORALLY Q 6 HRS PRN NAUSEA TAKING ZOLPIDEM TARTRATE 10 MG TABLET 1 TABLET AT BEDTIME NEEDED ORALLY BEFORE BEDTIME MDD=1 TAKING FLUOXETINE 1 TAB 20 MG ORALLY DAILY TAKING ZOFRAN ODT 8 MG TABLET DISPERSIBLE DIRECTED ORALLY Q 6 HRS PRN NAUSEA TAKING KEPPRA 500 MG TABLET ORALLY TWICE A DAY TAKING ATIVAN 1 MG TABLET 1 TAB ORALLY UP TO 3 TIMES A DAY NEEDED TAKING OXYCODONE HCL 5 MG/5ML SOLUTION 5 ML -1O ML NEEDED ORALLY EVERY 6 HRS PRN PAIN MDD=40 ML/DAY TAKING PROMETHAZINE HCL 25 MG SUPPOSITORY 1 SUPPOSITORY NEEDED RECTAL EVERY Q 8 HRS PRN NAUSEA TAKING SOMA 350 MG TABLET 1 TABLET ORALLY THREE TIMES A DAY NEEDED FOR SPASM MDD=3 TAKING OXYCODONE HCL 10 MG TABLET 1 TABLET ORALLY EVERY 4- 6 HRS PRN PAIN MDD=5 TAKING FENTANYL 12 MCG/HR PATCH 72 HOUR 1 PATCH TO SKIN TRANSDERMAL APPLY 1 PATCH Q 72 HRS MDD=1 TAKING CARAFATE 1 GM/10ML SUSPENSION 10 ML ORALLY FOUR TIMES DAILY NOT-TAKING OXYCODONE HCL 10 MG TABLET 1 TABLET NEEDED ORALLY EVERY 6 HRS PRN PAIN MDD=4 NOT-TAKING ROCEPHIN 1 GM SOLUTION RECONSTITUTED INJECTION EVERY DAY NOT-TAKING EFFEXOR XR 75 MG CAPSULE EXTENDED RELEASE 24 HOUR 1 CAPSULE WITH FOOD ORALLY ONCE A DAY, NOTES: IS TAPERING OFF THIS MED NOT-TAKING ABILIFY 10 MG TABLET 1 TABLET ORALLY ONCE A DAY NOT-TAKING BENTYL 10 MG CAPSULE 1 CAPSULE ORALLY FOUR TIMES A DAY NOT-TAKING FLUOXETINE NOT-TAKING CYCLOBENZAPRINE HCL 10 MG TABLET 1 TABLET ORALLY THREE TIMES A DAY NOT-TAKING SOMA 350 MG TABLET 2 TABLET NEEDED ORALLY 2 TIMES A DAY MEDICATION LIST REVIEWED AND RECONCILED WITH THE PATIENT PAST MEDICAL HISTORY DEPRESSION/ANXIETY HYDRATION ISSUES HX OF MRSA BACK PROBLEM ALLERGIES SULFA (FOR ALLERGY USE ONLY): ANAPHYLAXIS: ALLERGY FENTANYL: HEART RATE FLUCTUATIONS: ALLERGY NSAIDS: GI BLEED: CONTRAINDICATION REVIEW OF SYSTEMS REVIEWED BY: PROVIDER: LUIS DALEY . CONSTITUTIONAL: ANY CHANGE IN YOUR MEDICAL CONDITION? NO . CHILLS NO . FEVER NO . INFECTION: DO YOU HAVE NEW INFECTIONS? NO . DO YOU HAVE HISTORY OF MRSA? NO . MUSCULOSKELETAL: ANY NEW PATTERNS OF PAIN OR NUMBNESS? NO . GASTROENTEROLOGY: ANY NEW CHANGE IN BOWEL CONTROL? NO . GENITOURINARY: ANY NEW CHANGE IN BLADDER CONTROL? NO . IS THERE A CHANCE YOU COULD BE ? NO . HEMATOLOGY/LYMPH: DO YOU TAKE ANY BLOOD THINNERS? (FOR EXAMPLE- COUMADIN, PLAVIX, AGGRENOX, PLATEL, PRADAXA, OR XARELTO) NO . WHEN WAS YOUR LAST DOSE? DATE: TIME: . NEUROLOGY: HAVE YOU FALLEN IN THE PAST 6 MONTHS? NO . ANY NEW EXTREMITY NUMBNESS OR WEAKNESS? NO . CARDIOLOGY: DO YOU HAVE A PACEMAKER OR DEFIBRILLATOR? NO . RESPIRATORY: HAVE YOU BEEN SICK IN THE PAST WEEK? NO . FEVER NO . FLU LIKE SYMPTOMS? NO . COUGH NO . INTEGUMENTARY: DO YOU HAVE ANY RASHES OR OPEN SORES? NO . ALLERGIC/IMMUNO: ARE YOU ALLERGIC TO SHELLFISH OR IV DYE? NO . ANY NEW ALLERGIES? NO . PSYCHIATRIC: DO YOU HAVE THOUGHTS OF HURTING YOURSELF OR SOMEONE ELSE? NO . ARE YOU ABUSED, NEGLECTED, OR IN AN UNSAFE ENVIRONMENT? NO . ENDOCRINOLOGY: ARE YOU DIABETIC? NO . OTHER: DO YOU NEED ANY PRESCRIPTIONS? NO . IF YES, PLEASE LIST: ____ . ANY NEW PROBLEMS WITH YOUR MEDICATIONS? NO . WHEN DID YOU LAST EAT? ____ . WHEN DID YOU LAST DRINK? ____ . WHAT DID YOU LAST DRINK? ____ . NAME OF PERSON DRIVING YOU HOME? ____ . DO YOU HAVE ANY OTHER QUESTIONS OR CONCERNS NO . PSYCHOLOGY: ANXIETY SEVERE, WORRIED ABOUT FAMILY EVENTS OVER THE NEXT WEEK . VITAL SIGNS WT 139.2 LBS, HT 66 IN, BMI 22.47 INDEX, BP 122/65 MM HG, HR 79 /MIN, RR 16 /MIN, TEMP 97.7 F, OXYGEN SAT % 100%, NA INITIALS SC 10:55, REVIEWED BY: VD. EXAMINATION GENERAL EXAMINATION: GENERAL APPEARANCE:COLOR PALE, BUT IMPROVED. PSYCHALERT , ORIENTED X 3 , APPROPRIATE MOOD AND AFFECT. ANXIOUS, SOMEWHAT WEEPY TODAY. VERY TALKATIVE. . LUNGS:CLEAR TO AUSCULTATION BILATERALLY. HEART:HEART RATE REGULAR. ABDOMEN:TENDER IN EPIGASTRIC REGION. NO DISTENTION. BOWEL SOUNDS HYPERACTIVE. ASSESSMENTS EPIGASTRIC PAIN - R10.13 (PRIMARY) CHRONICALLY ON OPIATE THERAPY - Z79.899 TREATMENT EPIGASTRIC PAIN REFILL FENTANYL PATCH 72 HOUR, 25 MCG/HR, 1 PATCH TO SKIN, TRANSDERMAL, APPLY 1 PATCH Q 72 HRS MDD=1, 14 DAY(S), 5, REFILLS 0 NOTES: INCREASE FENTANYL TO 25 MCG PATCH EVERY 3 DAYS FOR 2 PATCHES, THEN A 25 MCG PATCH PLUS A 12 MCG PATCH. USE ORAL OXYCODOME AND CARAFATE ABLE. ICE PACK TO GROIN AREA. CLINICAL NOTES: ISTOP REGISTRY REVIEWED AND DEMNOSTRATES COMPLLIANCE. BRINGS IN MEDICATIONS WHICH IS APPROPRIATE FOR WHAT WAS DISPENSED. RECENT URINE TOXICOLOGY REVIEWED. NO UNAUTHORIZED MEDICATIONS. NO ILLICIT SUBSTANCES AND PRESCRIBED MEDICATIONS WERE PRESENT. PROCEDURE CODES FA211 ESTABILISHED PATIENT [facility] CHARGE DISPOSITION & COMMUNICATION FOLLOW UP 2 WEEKS ELECTRONICALLY SIGNED BY RYLEY CROOK ON 04/30/2017 AT 05:59 PM EDT DISCLAIMER : THIS IS A VISIT SUMMARY EXTRACTED FROM THE [facility] CHART. IT IS NOT A COPY OF THE [facility] PROGRESS NOTE. HAILEY
== END ==
LOC: M PAIN 11:00
PROVIDERS: ATTEND Nurse Practitioner Family
DX: R10.13 Epigastric pain (principal); Z79.899 Other long term (current) drug therapy; Z79.891 Long term (current) use of opiate analgesic; Z88.2 Allergy status to sulfonamides; Z88.8 Allergy status to other drugs, medicaments and biological substances

== ENCOUNTER → 2017-04-26 | Outpatient (CLI) | payer BC, OTHER ==
--- NOTE | 2017-05-23 01:41 | ECWPNPC ---
PATIENT NAME: NI RICHMOND : 1980 GENDER: FEMALE VISIT DATE: 04/26/2017 DISCHARGE DATE: 04/26/17927 VISIT LOCKED DATE TIME: PHYSICIAN: LUIS BARNDON RESOURCE: LUIS BRANDON REASON FOR APPOINTMENT 1. ABD PAIN HISTORY OF PRESENT ILLNESS HISTORY OF PRESENT ILLNESS: PAIN THE PATIENT DESCRIBES THE PAIN... FALL RISK SCREENING: SCREENING :NO FALLS IN THE PAST YEAR TODAY'S VISIT: NOTES: RATES PAIN TODAY 5/10. HAVING SOME GOOD DAYS. STILL WITH SIGNIFICANT NAUSEA. NEW SKIN LESION RIGHT CALF. NO PROBLEMS WITH SKIN UNDER FENATANY PATCH. REPORTS STILL WITH A SIGNICANT LEVEL OF PAIN WITH THE FENTANYL. CURRENT MEDICATIONS TAKING PROMETHAZINE HCL 25 MG TABLET 1 TABLET NEEDED ORALLY Q 6 HRS PRN NAUSEA TAKING ZOLPIDEM TARTRATE 10 MG TABLET 1 TABLET AT BEDTIME NEEDED ORALLY BEFORE BEDTIME MDD=1 TAKING FLUOXETINE 1 TAB 20 MG ORALLY DAILY TAKING KEPPRA 500 MG TABLET ORALLY TWICE A DAY TAKING PROMETHAZINE HCL 25 MG SUPPOSITORY 1 SUPPOSITORY NEEDED RECTAL EVERY Q 8 HRS PRN NAUSEA TAKING SOMA 350 MG TABLET 1 TABLET ORALLY THREE TIMES A DAY NEEDED FOR SPASM MDD=3 TAKING OXYCODONE HCL 10 MG TABLET 1 TABLET ORALLY EVERY 4- 6 HRS PRN PAIN MDD=5 TAKING FENTANYL 25 MCG/HR PATCH 72 HOUR 1 PATCH TO SKIN TRANSDERMAL APPLY 1 PATCH Q 72 HRS MDD=1 TAKING OXYCODONE HCL 5 MG/5ML SOLUTION 5 ML -1O ML NEEDED ORALLY EVERY 6 HRS PRN PAIN MDD=40 ML/DAY TAKING CARAFATE 1 GM/10ML SUSPENSION 10 ML ORALLY FOUR TIMES DAILY TAKING ZOFRAN ODT 8 MG TABLET DISPERSIBLE DIRECTED ORALLY Q 6 HRS PRN NAUSEA TAKING ATIVAN 1 MG TABLET 1 TAB ORALLY UP TO 3 TIMES A DAY NEEDED NOT-TAKING OXYCODONE HCL 10 MG TABLET 1 TABLET NEEDED ORALLY EVERY 6 HRS PRN PAIN MDD=4 NOT-TAKING ROCEPHIN 1 GM SOLUTION RECONSTITUTED INJECTION EVERY DAY NOT-TAKING EFFEXOR XR 75 MG CAPSULE EXTENDED RELEASE 24 HOUR 1 CAPSULE WITH FOOD ORALLY ONCE A DAY, NOTES: IS TAPERING OFF THIS MED NOT-TAKING ABILIFY 10 MG TABLET 1 TABLET ORALLY ONCE A DAY NOT-TAKING BENTYL 10 MG CAPSULE 1 CAPSULE ORALLY FOUR TIMES A DAY NOT-TAKING FLUOXETINE NOT-TAKING CYCLOBENZAPRINE HCL 10 MG TABLET 1 TABLET ORALLY THREE TIMES A DAY NOT-TAKING SOMA 350 MG TABLET 2 TABLET NEEDED ORALLY 2 TIMES A DAY MEDICATION LIST REVIEWED AND RECONCILED WITH THE PATIENT PAST MEDICAL HISTORY DEPRESSION/ANXIETY HYDRATION ISSUES HX OF MRSA BACK PROBLEM ALLERGIES SULFA (FOR ALLERGY USE ONLY): ANAPHYLAXIS: ALLERGY FENTANYL: HEART RATE FLUCTUATIONS: ALLERGY NSAIDS: GI BLEED: CONTRAINDICATION REVIEW OF SYSTEMS REVIEWED BY: PROVIDER: LUIS DALEY . CONSTITUTIONAL: ANY CHANGE IN YOUR MEDICAL CONDITION? NO . CHILLS NO . FEVER NO . INFECTION: DO YOU HAVE NEW INFECTIONS? NO . DO YOU HAVE HISTORY OF MRSA? NO . MUSCULOSKELETAL: ANY NEW PATTERNS OF PAIN OR NUMBNESS? NO . GASTROENTEROLOGY: ANY NEW CHANGE IN BOWEL CONTROL? NO . GENITOURINARY: ANY NEW CHANGE IN BLADDER CONTROL? NO . IS THERE A CHANCE YOU COULD BE ? NO . HEMATOLOGY/LYMPH: DO YOU TAKE ANY BLOOD THINNERS? (FOR EXAMPLE- COUMADIN, PLAVIX, AGGRENOX, PLATEL, PRADAXA, OR XARELTO) NO . WHEN WAS YOUR LAST DOSE? DATE: TIME: . NEUROLOGY: HAVE YOU FALLEN IN THE PAST 6 MONTHS? NO . ANY NEW EXTREMITY NUMBNESS OR WEAKNESS? NO . CARDIOLOGY: DO YOU HAVE A PACEMAKER OR DEFIBRILLATOR? NO . RESPIRATORY: HAVE YOU BEEN SICK IN THE PAST WEEK? NO . FEVER NO . FLU LIKE SYMPTOMS? NO . COUGH NO . INTEGUMENTARY: DO YOU HAVE ANY RASHES OR OPEN SORES? NO . ALLERGIC/IMMUNO: ARE YOU ALLERGIC TO SHELLFISH OR IV DYE? NO . ANY NEW ALLERGIES? NO . PSYCHIATRIC: DO YOU HAVE THOUGHTS OF HURTING YOURSELF OR SOMEONE ELSE? NO . ARE YOU ABUSED, NEGLECTED, OR IN AN UNSAFE ENVIRONMENT? NO . ENDOCRINOLOGY: ARE YOU DIABETIC? NO . OTHER: DO YOU NEED ANY PRESCRIPTIONS? YES . IF YES, PLEASE LIST: FENTANYL . ANY NEW PROBLEMS WITH YOUR MEDICATIONS? NO . WHEN DID YOU LAST EAT? ____ . WHEN DID YOU LAST DRINK? ____ . WHAT DID YOU LAST DRINK? ____ . NAME OF PERSON DRIVING YOU HOME? ____ . DO YOU HAVE ANY OTHER QUESTIONS OR CONCERNS NO . VITAL SIGNS WT 138 LBS, HT 66 IN, BMI 22.27 INDEX, BP 116/64 MM HG, HR 88 /MIN, RR 18 /MIN, TEMP 97 F, OXYGEN SAT % 100, REVIEWED BY: NL. EXAMINATION GENERAL EXAMINATION: GENERAL APPEARANCE:COLOR PALE, BUT IMPROVED. PSYCHALERT , ORIENTED X 3 , APPROPRIATE MOOD AND AFFECT. SMILING TODAY. VERY TALKATIVE. . LUNGS:CLEAR TO AUSCULTATION BILATERALLY. HEART:HEART RATE REGULAR. ABDOMEN:TENDER IN EPIGASTRIC REGION. NO DISTENTION. BOWEL SOUNDS HYPERACTIVE. ASSESSMENTS EPIGASTRIC PAIN - R10.13 (PRIMARY) CHRONICALLY ON OPIATE THERAPY - Z79.899 TREATMENT EPIGASTRIC PAIN REFILL FENTANYL PATCH 72 HOUR, 25 MCG/HR, 1 PATCH TO SKIN, TRANSDERMAL, APPLY 1 PATCH Q 72 HRS MDD=1, 30 DAY(S), 10, REFILLS 0 REFILL OXYCODONE HCL TABLET, 10 MG, 1 TABLET, ORALLY, EVERY 4- 6 HRS PRN PAIN MDD=5, 30 DAY(S), 150, REFILLS 0 NOTES: OK TO USE OXY IR PILLS. KEEP OXY LIQUID FOR BACK UPCONTACT DR MARTIN ABOUT LESION ON LEG. CLINICAL NOTES: ISTOP REGISTRY REVIEWED AND DEMNOSTRATES COMPLLIANCE. BRINGS IN MEDICATIONS WHICH IS APPROPRIATE FOR WHAT WAS DISPENSED. RECENT URINE TOXICOLOGY REVIEWED. NO UNAUTHORIZED MEDICATIONS. NO ILLICIT SUBSTANCES AND PRESCRIBED MEDICATIONS WERE PRESENT. PROCEDURE CODES FA211 ESTABILISHED PATIENT [facility] CHARGE DISPOSITION & COMMUNICATION FOLLOW UP 3 WEEKS (REASON: ABD PAIN) ELECTRONICALLY SIGNED BY RYLEY CROOK ON 05/22/2017 AT 08:47 AM EDT DISCLAIMER : THIS IS A VISIT SUMMARY EXTRACTED FROM THE [employer] CHART. IT IS NOT A COPY OF THE [employer] PROGRESS NOTE. HAILEY
== END | disposition home or self-care (01) ==
LOC: M PAIN 08:40
PROVIDERS: ATTEND Nurse Practitioner Family
DX: G89.29 Other chronic pain (principal); R10.13 Epigastric pain; F33.9 Major depressive disorder, recurrent, unspecified; F41.9 Anxiety disorder, unspecified; Z86.19 Personal history of other infectious and parasitic diseases; Z79.899 Other long term (current) drug therapy; Z88.2 Allergy status to sulfonamides; Z88.8 Allergy status to other drugs, medicaments and biological substances

== ENCOUNTER 2017-04-29 16:09 | Inpatient (IN) | payer BC, OTHER ==
[~2017-04-29] VITALS: Ht 170.2 cm; Wt 66.4 kg
[~2017-04-29 16:09] MED LIST changes: -ATIV1TAB7 PO; -CARI350T PO; -FENT12PA TD; -FENT25PA TD; -FENT50PA TD; -FLUO20SO PO; -KEPP1TAB PO; -LORA1TAB12 PO; -ONDA8TAB8 PO; -OXYC10TA12 PO; -OXYC1SOL3 PO; -PHEN1SUP6 PR; -PROZ20CA11 PO; -ROCE1INJ4 INJ; -ZOFR8TAB4 PO; -ZOLP10TA2 PO; -ZOLP12.515 PO
[2017-04-29] MEDS ORDERED: ZOFR8TAB4 PO (16:26)
[2017-04-29] MEDS ORDERED: FENT12PA TD (16:26)
[2017-04-29] MEDS ORDERED: FENT25PA TD (16:26)
[2017-04-29] MEDS ORDERED: OXYC10TA12 PO (16:26)
[2017-04-29] MEDS ORDERED: VANCOMYCIN HCL 1,000 MG, VIAL MATE ADAPTER 1 EACH in D5W 250 ML IV ONE (18:00)
[2017-04-29] MEDS ORDERED: CEFEPIME HCL 2 GM in D5W MINI-BAG PLUS 50 ML IV ONE (18:00)
[2017-04-29 18:02] LABS: BASO # 0.1 K/mm3 (0.0-0.2); BASO % 0.6 % (0.0-1.0); EOS # 0.2 K/mm3 (0.0-0.50); EOS % 2.5 % (0.0-3.0); LARGE UNSTAINED CELL # 0.2 K/mm3 (0.0-0.4); LARGE UNSTAINED CELL % 1.5 % (0.0-4.0); LYMPH # 1.5 K/mm3 (1.5-4.5); LYMPH % 15.2 % (24.0-44.0); MEAN CORPUSCULAR HEMOGLOBIN 21.6 pg (27.0-33.0); MONO # 0.5 K/mm3 (0.0-0.8); MONO % 5.1 % (0.0-5.0); NEUTROPHILS # 7.2 K/mm3 (1.8-7.7); NEUTROPHILS % 75.1 % (36.0-66.0); PLATELET COUNT, AUTOMATED 344 k/mm3 (150-450); RED CELL DISTRIBUTION WIDTH 16.1 % (11.5-14.5); WHITE BLOOD COUNT 9.6 K/mm3 (4.0-10.0)
[2017-04-29 18:06] LABS: ANION GAP 7 MEQ/L (8-16); BLOOD UREA NITROGEN 4 MG/DL (7-18); CALCIUM LEVEL 8.9 MG/DL (8.5-10.1); CARBON DIOXIDE LEVEL 29 MEQ/L (21-32); CHLORIDE LEVEL 102 MEQ/L (98-107); CREATININE FOR GFR 0.59 MG/DL (0.55-1.02); GLOMERULAR FILTRATION RATE > 60.0 (>60); GLUCOSE, FASTING 103 MG/DL (70-105); SODIUM LEVEL 138 MEQ/L (136-145)
[2017-04-29 18:13] LABS: ADD MORPHOLOGY? YES
[2017-04-29] MEDS: MORPHINE 4 MG/ML 1ML SYRINGE IV PRN ×3 (18:21→22:32)
[2017-04-29 18:27] LABS: ERYTHROCYTE SEDIMENTATION RATE 61 mm/hr (0-20)
[2017-04-29 18:29] LABS: ANISOCYTOSIS 1+; HYPOCHROMASIA 1+; MICROCYTOSIS 2+; POIKILOCYTOSIS 1+
[2017-04-29 18:30] LABS: SCHISTOCYTES 1+
[2017-04-29 18:31] LABS: OVALOCYTES 1+; TEAR DROP CELLS 1+
--- NOTE | 2017-04-29 20:10 | REPUSA ---
Clinical history: right leg wound. Findings: Real-time ultrasound imaging of the right leg was performed. There is diffuse soft tissue e taylor. At the site of the wound, there is a complex fluid collection measuring 2.1 x 1.6 x 2.7 cm. No solid lesion is identified. Impression: Complex Fluid collection at the site of concern, highly suspicious for an abscess.
[2017-04-29] MEDS ORDERED: MORPHINE 4 MG/ML 1ML SYRINGE IV ONE (20:15)
[2017-04-29] MEDS ORDERED: PROZ20CA11 PO (20:59)
[2017-04-29] MEDS ORDERED: ROCE1INJ4 INJ (20:59)
[2017-04-29] MEDS ORDERED: OXYC1SOL3 PO (20:59)
[2017-04-29] MEDS ORDERED: ATIV1TAB7 PO (20:59)
[2017-04-29] MEDS ORDERED: KEPP1TAB PO (20:59)
[2017-04-29] MEDS ORDERED: ZOLP12.515 PO (20:59)
[2017-04-29] MEDS ORDERED: SOMA350T PO (20:59)
[2017-04-29] MEDS ORDERED: MORPHINE 2 MG/ML 1ML SYRINGE IV PRN (21:00)
[2017-04-29 21:05] VITALS: BP 138/71
[2017-04-29] MEDS ORDERED: PROMETHAZINE 25 MG TAB PO PRN (21:45)
[2017-04-29] MEDS ORDERED: CARISOPRODOL 350 MG TAB PO PRN (21:45)
[2017-04-29] MEDS ORDERED: LORazepam 1 MG TAB PO PRN (21:45)
--- NOTE | 2017-04-29 21:48 | HPEPDOC ---
General Date of Admission Apr 29, 2017 at 20:07 Primary Care Physician: BRITT MARTIN MD [facility] Attending Physician: Suresh Alexander MD Chief Complaint The patient is a 37-year-old female admitted with a reason for visit of Cellulitis And Abscess Of Right Leg. Source: Patient, Family History of Present Illness Ms. Diaz is a 37-year-old female who presented to the emergency department with swelling, cellulitis, and abscess of the right lower extremity on the anterior tibia. This started approximately 3 days ago, she had a small punctate wound on the mid anterior bradford, she does not know what happened, she denies any knowledge of trauma or bug bite. The wound progressively get worse over the next few days despite the administration of IM Rocephin by her primary care provider. She has a past medical history of gastric bypass surgery with multiple following complications including the placement of a gastrostomy tube in 2013, and subsequent removal thereof in October 2016. Apparently she cannot absorb oral antibiotics properly. She has a remote history of MRSA, therefore it is suspected that this is MRSA as well. She is being admitted to the hospital for IV antibiotic treatment of worsening cellulitis and abscess. Home Medications Scheduled Fentanyl (Fentanyl) 12 Mcg Tdsy, 12 MCG TD Q3RD, (Reported) WAS TAKEN OFF OF PATIENT AT [facility] 04/29 Fentanyl (Fentanyl) 25 Mcg Tdsy, 25 MCG TD Q3RD, (Reported) WAS TAKEN OFF OF PATIENT AT [facility] 04/29 Fluoxetine HCl (Prozac) 20 Mg Cap, 20 MG PO DAILY, (Reported) Levetiracetam (Keppra) 500 Mg Tab, 500 MG PO BID, (Reported) Scheduled PRN (Oxycodone HCl) 5 Mg/5 Ml Martha, 10 MG PO Q6H PRN for PAIN, (Reported) HAS IN CASE PATIENT CAN'T KEEP DONE THE TABLET. WRITTEN BY SAME DOCTOR AT THE PAIN CLINIC. Carisoprodol (Soma) 350 Mg Tab, 350 MG PO TID PRN for MUSCLE SPASMS, (Reported) Lorazepam (Ativan) 1 Mg Tab, 1 MG PO Q6H PRN for ANXIETY, (Reported) Ondansetron (Zofran Odt) 8 Mg Tab, 8 MG PO Q8HP PRN for NAUSEA, (Reported) Oxycodone HCl (Oxycodone HCl) 10 Mg Tab, 10 MG PO Q6HP PRN for PAIN, (Reported) Promethazine HCl (Promethazine HCl) 12.5 Mg Tab, 12.5 MG PO Q6H PRN for NAUSEA, (Reported) Zolpidem Tartrate (Zolpidem Tartrate ER) 12.5 Mg Tab, 12.5 MG PO QHS PRN for SLEEP, (Reported) Allergies Coded Allergies: Butorphanol (Verified Allergy, Severe, HIVES/RESP. PROBLEMS (PERCOCET AND TYL#3 OK), 01/21/13) Sulfa Drugs (Verified Allergy, Severe, SWELLING,HIVES,RESP. PROBLEMS, ) Tomato (Verified Allergy, Severe, HIVES/RESP. PROBLEMS, 01/21/13) Past Medical History Medical History History of morbid obesity status post gastric bypass surgery in 2008 History of malabsorption syndrome requiring total parenteral nutrition (TPN), she did have her [place] removed in October 2016, she now has regular diet Depression Anxiety Insomnia Chronic back pain status post back surgery in 2012 and 2015 Surgical History Gastric bypass surgery in 2008 Lumbar vertebral surgery in 2012 2015 Hysterectomy Feeding tube insertion in 2012, removed in 2016 Tubal ligation Tonsillectomy Cholecystectomy Family History Father has hypertension, grandmother diabetes. Otherwise no pertinent medical history. Social History * Smoker: Denies Alcohol: Denies Drugs: griselda Lives at home with her . She has 4 children, one of her children suffers from back pain, another suffers from mastocytosis. Review of Symptoms Constitutional: Reports: Fever, Denies: Chills, Night Sweats Eyes: Denies: Pain, Vision change ENT: Denies: Head Aches, Ear Pain, Dysphagia Skin: Denies: Rash, Lesions, Breakdown Pulmonary: Denies: Dyspnea, Cough Cardiovascular: Denies: Chest Pain, Palpitations, Orthopnea, Paroxysmal Noc. Dyspnea, Lt Headedness Gastrointestinal: Reports: Nausea (chronic), Vomiting (chronic), Abdominal Pain (chronic), Denies: Diarrhea Genitourinary: Denies: Dysuria, Frequency, Incontinence, Retention Hematologic: Denies: Bruising, Bleeding Excessively Musculoskeletal: Reports: Back Pain (chronic), Leg Pain (right lower extremity cellulitis and pain, as described in the HPI) Neurological: Denies: Weakness, Numbness, Change in speech, Confusion Psych: Reports: Mood Normal, Denies: Depression, Memory Issues Physical Examination General Exam: Positive: Alert, Cooperative, Mild Distress Eye Exam: Positive: PERRLA, Conjunctiva & lids normal, EOMI, Negative: Sclera icteric ENT Exam: Positive: Atraumatic, Mucous membr. moist/pink, Pharynx Normal Neck Exam: Positive: Supple, Negative: JVD, thyromegaly Chest Exam: Positive: Clear to auscultation, Normal air movement Heart Exam: Positive: Rate Normal, Regular Rhythm, Normal S1, Normal S2, Negative: Murmurs, Rubs Abdomen Exam: Positive: Normal bowel sounds, Soft, Tenderness (generalized tenderness throughout, this apparently is a chronic finding), Negative: Hepatospenomegaly Extremity Exam: Positive: Normal pulses, Negative: Clubbing, Cyanosis, Edema Skin Exam: Positive: Nl turgor and temperature, Lesion (she has cellulitis of the right lower extremity extending from just below the knee to just above the ankle, she also has a large fluctuant mass on the anterior tibia about midway, this is approximately 3 cm x 4 cm, erythematous, with surrounding cellulitis as described above.), Negative: Breakdown Psych Exam: Positive: Mental status NL, Mood NL, Oriented x 3 Vital Signs Vital Signs Date Time Temp Pulse Resp B/P (MAP) Pulse Ox O2 Delivery O2 Flow Rate FiO2 04/29/17 20:56 99.4 105 20 114/56 (75) 98 Room Air Laboratory Data Labs 24H Laboratory Tests 2 04/29/17 17:24: White Blood Count 9.6, Red Blood Count 4.03, Hemoglobin 8.7L, Hematocrit 29.0L, Mean Corpuscular Volume 72.0L, Mean Corpuscular Hemoglobin 21.6L, Mean Corpuscular Hemoglobin Concent 30.0L, Red Cell Distribution Width 16.1H, Platelet Count 344, Neutrophils (%) (Auto) 75.1H, Lymphocytes (%) (Auto) 15.2L, Monocytes (%) (Auto) 5.1H, Eosinophils (%) (Auto) 2.5, Basophils (%) (Auto) 0.6 , Neutrophils # (Auto) 7.2, Lymphocytes # (Auto) 1.5, Monocytes # (Auto) 0.5, Eosinophils # (Auto) 0.2, Basophils # (Auto) 0.1, Large Unclassified Cells % 1.5 , Large Unclassified Cells # 0.2, Platelet Estimate NORMAL, Hypochromasia 1+, Poikilocytosis 1+, Anisocytosis 1+, Microcytosis 2+, Tear Drop Cells 1+, Ovalocytes 1+, Schistocytes 1+, Erythrocyte Sedimentation Rate 61H, Anion Gap 7L , Glomerular Filtration Rate > 60.0, Blood Urea Nitrogen 4L, Creatinine 0.59, Sodium Level 138, Potassium Level 4.0, Chloride Level 102, Carbon Dioxide Level 29, Calcium Level 8.9, C-Reactive Protein, Quantitative 10.60H CBC/BMP Laboratory Tests 04/29/17 17:24 Red Blood Count 4.03, Mean Corpuscular Volume 72.0 L, Mean Corpuscular Hemoglobin 21.6 L, Mean Corpuscular Hemoglobin Concent 30.0 L, Red Cell Distribution Width 16.1 H, Neutrophils (%) (Auto) 75.1 H, Lymphocytes (%) (Auto ) 15.2 L, Monocytes (%) (Auto) 5.1 H, Eosinophils (%) (Auto) 2.5, Basophils (%) (Auto) 0.6, Neutrophils # (Auto) 7.2, Lymphocytes # (Auto) 1.5, Monocytes # ( Auto) 0.5, Eosinophils # (Auto) 0.2, Basophils # (Auto) 0.1, Calcium Level 8.9 Microbiology Microbiology 04/29/17 Blood Culture, Received Pending 04/29/17 Blood Culture, Received Pending 04/29/17 Gram Stain, Received Pending 04/29/17 Wound Culture, Received Pending Problems (1) Cellulitis and abscess of right leg Status: Acute (2) Insomnia Status: Chronic (3) Depression Status: Chronic (4) Chronic anemia Status: Chronic (5) H/O gastric bypass Status: Chronic (6) H/O lumbosacral spine surgery Status: Chronic (7) Chronic generalized abdominal pain Status: Chronic (8) Chronic back pain Status: Chronic Plan / VTE VTE Prophylaxis Ordered?: Yes (Lovenox) Plan Plan Will admit the patient for administration of IV antibiotics. We'll start her on IV doxycycline twice a day under the suspicion that this is MRSA since she has failed outpatient therapy with Rocephin. An ultrasound of the right lower extremity does reveal a large abscess. Blood cultures, wound cultures have already been performed in the emergency department. Once sensitivities return, may consider contacting her insurance company to see if daptomycin will be paid for, as this is once a day dosing, and she may be able to receive this outpatient from the infusion unit. Otherwise, we'll continue with her usual home regimen of pain medications including fentanyl patch Q3days and oxycodone, and for breakthrough pain we will add morphine IV PRN. BOB PRAKASH DO Apr 29, 2017 21:39 Suresh Alexander MD May 12, 2017 01:53
[2017-04-29] MEDS: levETIRAcetam 250MG TABLET (KEPPRA) PO SCH (22:24)
[2017-04-29] MEDS: zolPIDEM CR 6.25MG TABLET (AMBIEN CR) PO PRN (22:24)
[2017-04-30] MEDS: MORPHINE 4 MG/ML 1ML SYRINGE IV PRN ×8 (01:09→21:56)
[2017-04-30 06:00] VITALS: BP 119/62
[2017-04-30 06:38] LABS: MEAN CORPUSCULAR HEMOGLOBIN 21.8 pg (27.0-33.0); MEAN CORPUSCULAR HGB CONC 30.2 g/dl (32.0-36.5); MEAN CORPUSCULAR VOLUME 72.2 fl (80.0-96.0); RED CELL DISTRIBUTION WIDTH 16.5 % (11.5-14.5); WHITE BLOOD COUNT 7.4 K/mm3 (4.0-10.0)
[2017-04-30 06:54] LABS: ANION GAP 5 MEQ/L (8-16); CALCIUM LEVEL 8.6 MG/DL (8.5-10.1); CARBON DIOXIDE LEVEL 30 MEQ/L (21-32); CHLORIDE LEVEL 105 MEQ/L (98-107); CREATININE FOR GFR 0.49 MG/DL (0.55-1.02); GLOMERULAR FILTRATION RATE > 60.0 (>60); GLUCOSE, FASTING 107 MG/DL (70-105); POTASSIUM SERUM 3.5 MEQ/L (3.5-5.1); SODIUM LEVEL 140 MEQ/L (136-145)
[2017-04-30 07:20] LABS: BLOOD UREA NITROGEN 1 MG/DL (7-18)
[2017-04-30] MEDS: levETIRAcetam 250MG TABLET (KEPPRA) PO SCH ×2 (08:49→20:38)
[2017-04-30] MEDS: FLUoxetine 20 MG CAP PO SCH (08:49)
[2017-04-30] MEDS: ENOXAPARIN 40 MG/0.4 ML SYRINGE (J1650) SC SCH (08:50)
[2017-04-30] MEDS ORDERED: DOXYCYCLINE HYCLATE 100 MG in D5W MINI-BAG PLUS 100 ML IV SCH (09:00)
--- NOTE | 2017-04-30 10:32 | IPNPDOC ---
Subjective Date Seen The patient was seen on 04/30/17. Subjective Chief Complaint/HPI The patient is a 37-year-old female admitted with a reason for visit of Cellulitis And Abscess Of Right Leg. General: Denies: Chills Constitutional: Reports: Malaise, Weakness, Denies: Chills, Fever, Night Sweats Eyes: Denies: Vision change, Conjunctivae inflammation ENT: Denies: Head Aches Skin: Reports: Lesions (right bradford), Denies: Rash, Jaundice, Bruising Pulmonary: Denies: Dyspnea, Cough Cardiovascular: Denies: Chest Pain, Palpitations, Orthopnea Gastrointestinal: Reports: Nausea, Abdominal Pain (chronic), Denies: Vomiting, Diarrhea, Constipation Genitourinary: Denies: Dysuria Neurological: Reports: Weakness Psych: Reports: Mood Normal Objective Physical Examination General Exam: Positive: Alert, Cooperative, Mild Distress Eye Exam: Positive: PERRLA, Conjunctiva & lids normal, EOMI, Negative: Sclera icteric ENT Exam: Positive: Atraumatic, Mucous membr. moist/pink, Pharynx Normal Neck Exam: Positive: Supple, Negative: JVD, thyromegaly Chest Exam: Positive: Clear to auscultation, Normal air movement Heart Exam: Positive: Rate Normal, Regular Rhythm, Normal S1, Normal S2, Negative: Murmurs, Rubs Abdomen Exam: Positive: Normal bowel sounds, Soft, Tenderness (generalized tenderness throughout, this apparently is a chronic finding), Negative: Hepatospenomegaly Extremity Exam: Positive: Normal pulses, Negative: Clubbing, Cyanosis, Edema Skin Exam: Positive: Nl turgor and temperature, Lesion (she has cellulitis of the right lower extremity extending from just below the knee to just above the ankle, she also has a large fluctuant mass on the anterior tibia about midway, this is approximately 3 cm x 4 cm, erythematous, with surrounding cellulitis as described above.), Negative: Breakdown Psych Exam: Positive: Mental status NL, Mood NL, Oriented x 3 Assessment /Plan Problems (1) Cellulitis and abscess of right leg Status: Acute Response to Treatment: Stable Problem Text: no fever and no white count CRP elevated one day ago blood cx pending will continue to treat with IV Doxy as gram stain showed possible MRSA/MSSA. will away culture sensitives and tailor abx accordingly will control pain, continue home pain meds with morphine IV (2) Insomnia Status: Chronic Response to Treatment: Stable Problem Text: stable, pt was able to sleep last night (3) Depression Status: Chronic Response to Treatment: Stable Problem Specific Plan: Monitor Clinically Problem Text: c/w home medications (4) Chronic anemia Status: Chronic Problem Text: 8.4/.8 stable no active bleeding continue to monitor (5) H/O gastric bypass Status: Chronic Response to Treatment: Stable (6) Chronic generalized abdominal pain Status: Chronic Response to Treatment: Stable Problem Text: pts biggest concern is her pain in her leg, chronic abdominal pain from gastric surgery many years ago continue to monitor (7) Chronic back pain Status: Chronic Response to Treatment: Stable Problem Text: c/w home pain medications Plan/VTE VTE Prophylaxis Ordered?: Yes (Lovenox) VS, I&O, 24H, Fishbone Vital Signs/I&O Vital Signs Date Time Temp Pulse Resp B/P (MAP) Pulse Ox O2 Delivery O2 Flow Rate FiO2 04/30/17 09:05 18 04/30/17 06:00 96.8 92 119/62 (81) 98 Room Air I&O- Last 24 Hours up to 6 AM 04/30/17 06:00 Intake Total 410 ml Output Total 750 ml Balance -340 ml Laboratory Data 24H LABS Laboratory Tests 2 04/29/17 17:24: White Blood Count 9.6, Red Blood Count 4.03, Hemoglobin 8.7L, Hematocrit 29.0L, Mean Corpuscular Volume 72.0L, Mean Corpuscular Hemoglobin 21.6L, Mean Corpuscular Hemoglobin Concent 30.0L, Red Cell Distribution Width 16.1H, Platelet Count 344, Neutrophils (%) (Auto) 75.1H, Lymphocytes (%) (Auto) 15.2L, Monocytes (%) (Auto) 5.1H, Eosinophils (%) (Auto) 2.5, Basophils (%) (Auto) 0.6 , Neutrophils # (Auto) 7.2, Lymphocytes # (Auto) 1.5, Monocytes # (Auto) 0.5, Eosinophils # (Auto) 0.2, Basophils # (Auto) 0.1, Large Unclassified Cells % 1.5 , Large Unclassified Cells # 0.2, Platelet Estimate NORMAL, Hypochromasia 1+, Poikilocytosis 1+, Anisocytosis 1+, Microcytosis 2+, Tear Drop Cells 1+, Ovalocytes 1+, Schistocytes 1+, Erythrocyte Sedimentation Rate 61H, Anion Gap 7L , Glomerular Filtration Rate > 60.0, Blood Urea Nitrogen 4L, Creatinine 0.59, Sodium Level 138, Potassium Level 4.0, Chloride Level 102, Carbon Dioxide Level 29, Calcium Level 8.9, C-Reactive Protein, Quantitative 10.60H 04/30/17 05:52: Anion Gap 5L, Glomerular Filtration Rate > 60.0, Blood Urea Nitrogen 1#L, Creatinine 0.49L, Sodium Level 140, Potassium Level 3.5, Chloride Level 105, Carbon Dioxide Level 30, Calcium Level 8.6 CBC/BMP Laboratory Tests 04/29/17 17:24 Red Blood Count 4.03, Mean Corpuscular Volume 72.0 L, Mean Corpuscular Hemoglobin 21.6 L, Mean Corpuscular Hemoglobin Concent 30.0 L, Red Cell Distribution Width 16.1 H, Neutrophils (%) (Auto) 75.1 H, Lymphocytes (%) (Auto ) 15.2 L, Monocytes (%) (Auto) 5.1 H, Eosinophils (%) (Auto) 2.5, Basophils (%) (Auto) 0.6, Neutrophils # (Auto) 7.2, Lymphocytes # (Auto) 1.5, Monocytes # ( Auto) 0.5, Eosinophils # (Auto) 0.2, Basophils # (Auto) 0.1, Calcium Level 8.9 04/30/17 05:52 Red Blood Count 3.85 L, Mean Corpuscular Volume 72.2 L, Mean Corpuscular Hemoglobin 21.8 L, Mean Corpuscular Hemoglobin Concent 30.2 L, Red Cell Distribution Width 16.5 H, Calcium Level 8.6 Microbiology Microbiology 04/29/17 Blood Culture, Received Pending 04/29/17 Blood Culture, Received Pending 04/29/17 Gram Stain - Final, Resulted 04/29/17 Wound Culture, Resulted Pending GME ATTESTATION GME ATTESTATION My preceptor for this patient encounter was physically present in the building during the encounter and was fully available. As needed, all aspects of the patient interview, examination, medical decision making process, and medical care plan development were reviewed and approved by the preceptor. Preceptor is aware and concurs with the plan as stated in the body of this note and will attest to such by his/her cosignature. ANNIE ADAMS DO Apr 30, 2017 10:32
[2017-04-30] MEDS: oxyCODONE 5MG TAB PO PRN ×2 (10:34→19:24)
[2017-04-30] MEDS: VANCOMYCIN HCL 1,000 MG, VIAL MATE ADAPTER 1 EACH in D5W 250 ML IV SCH ×2 (13:30→20:38)
[2017-04-30 14:00] VITALS: BP 104/59
--- NOTE | 2017-04-30 14:15 | PHACANCOPD ---
PHARMACY VANCOMYCIN DOSING Pt Demographics Demographics Patient Age:37 , Weight:66.400 , Gender: female Adjusted Body Weight Date: 04/30/17, Adjusted Body Weight: Kg Events Past 24 Hours Events Past 24 Hours: NO: Dialysis, Diuretic Therapy, Change in CrCl, Fever, Elevation in WBC, Pending Diagnostics, Pending Procedures, Other Vancomycin Vancomycin indication: CELLULITIS AND ABSCESS Vancomycin Target Ranges: 15-20 mcg/ml Vancomycin Load Y/N: No Load Dose Date Time Vancomycin Load Dose: 1000 Date: 04/29/17 Time: 1900 Vancomycin Dose Date: 04/30/17. Current Vancomycin Dose: [1000MG IV Q8H @ 1300] Intermittent Dosing?: No Labs Labs Item Value Date Time Creatinine 0.59 MG/DL 04/29/17 1724 Creatinine 0.49 MG/DL L 04/30/17 0552 White Blood Count 9.6 K/mm3 04/29/17 1724 White Blood Count 7.4 K/mm3 04/30/17 0552 Micro Microbiology 04/29/17 Blood Culture, Received Pending 04/29/17 Blood Culture, Received Pending 04/29/17 Gram Stain - Final, Resulted 04/29/17 Wound Culture - Preliminary, Resulted Staphylococcus Aureus Creatinine Clearance Date:04/30/17. Creatinine Clearance: [>100MLS/MIN]. Pending Labs VANCO TROUGH @ 1200 Assessment and Plan Maintaining Current Dose?: Yes Reason for dose change: No Dose Change Pharmacist Note Pharmacist Note Date: 04/30/17. Pharmacist note: Vanco 1 gram was administered in the Er on @1900 then 1 gram q8 hours was started 04/30 @ 1300. Trough is scheduled to be drawn after 3 doses (05/01 @ 1200). Continue to monitor renal function and adjust dose as needed. GYPSY CASTILLO PHARMACY Apr 30, 2017 14:15
[2017-04-30] MEDS ORDERED: LIDOCAINE W/EPINEPHRINE 1% 20ML VIAL SC ONE (16:00)
--- NOTE | 2017-04-30 17:09 | CR ---
DATE OF CONSULTATION: 04/30/2017 CHIEF COMPLAINT: Abscess right leg. HISTORY OF PRESENT ILLNESS: The patient is a 37-year-old female who developed swelling and cellulitis of the right lower extremity, was admitted to the hospital yesterday and had an ultrasound, which showed an abscess. This was aspirated and reveal fluid underlying this. The patient was admitted with increasing cellulitis, pain and discomfort. PAST MEDICAL HISTORY: Significant for history of morbid obesity status post gastric bypass and resolution of the morbid obesity, history of malabsorption syndrome requiring TPN, history of depression, history of anxiety, history of insomnia, history of chronic back pain, history of gastric bypass, history of lumbar vertebral surgery, history of hysterectomy and feeding tube, tubal ligation, tonsillectomy, cholecystectomy. MEDICATIONS: Include ceftriaxone, fentanyl, fluoxetine, and Keppra. PHYSICAL EXAM: Reveals a 37-year-old female who looks stated age. HEENT is unremarkable. NECK: Supple without adenopathy. LUNGS: Are clear to auscultation. HEART: Is regular without murmur. ABDOMEN: Is soft, nontender, nondistended. EXTREMITIES: Her right lower extremities revealed 2+ pitting edema and the lower extremity below the knee and she has no significant cellulitis, but she has a fluctuant area with some purulent drainage from multiple holes within this area. Otherwise she has good perfusion distally with good capillary refill. She does have some pain with activity / movement of her leg. But does not have a tensely distended compartment or area. IMPRESSION AND PLAN: The patient has an abscess on the right leg. We have discussed options for her. At this point it is starting to drain. It may be reasonable to continue with some local dressing changes, soaks etc. or to plan with incision and drainage of this. I do feel that the incision and drainage with expedite her healing and resolution quicker. She agrees to proceed with this. She understands the risks as well as benefits associated with the procedure, those including but not limited to infection, bleeding, damage to surrounding structures and possible need for additional operative intervention.
--- NOTE | 2017-04-30 17:41 | RO ---
DATE OF PROCEDURE: 04/30/2017 PREOPERATIVE DIAGNOSIS: Right leg abscess. POSTOPERATIVE DIAGNOSIS: Right leg abscess. PROCEDURE: Incision and drainage of right leg abscess. SURGEON: Dr. Claudio Marte ANESTHESIA: Local lidocaine mixed with epinephrine. DESCRIPTION OF PROCEDURE: Brief procedure summary: The patient was left in her hospital bed, prepped and draped in the usual sterile fashion. Local lidocaine mixed with epinephrine was infiltrated into this area and then the fluctuant area could be easily palpated underneath the skin. Using a 20-gauge needle, I was able to enter this cavity and through that same spot, using a suture removal scissors, this area was opened widely. There was very attenuated skin over the top of this pocket of abscess tissue, and the area was opened widely. Peroxide was used to irrigate the site and then packed with a dry sterile gauze. The patient tolerated the procedure well and plan is to continue with daily dressing changes. However, given the amount of discomfort and pain the patient had at the site locally, I would recommend avoiding packing this until the patient is much more comfortable. This is widely open, so should not close up prematurely.
[2017-04-30] MEDS: zolPIDEM CR 6.25MG TABLET (AMBIEN CR) PO PRN (20:38)
[2017-04-30 22:00] VITALS: BP 106/59
[2017-04-30] MEDS: ONDANSETRON 4 MG TAB (S0181) PO PRN (23:40)
[2017-05-01] VITALS (8 sets, daily range): BP systolic 82–110; BP diastolic 42–88
[2017-05-01] MEDS: MORPHINE 4 MG/ML 1ML SYRINGE IV PRN ×6 (02:46→19:04)
[2017-05-01] MEDS: VANCOMYCIN HCL 1,000 MG, VIAL MATE ADAPTER 1 EACH in D5W 250 ML IV SCH ×3 (05:27→17:21)
[2017-05-01 06:13] LABS: MEAN CORPUSCULAR HEMOGLOBIN 21.8 pg (27.0-33.0); MEAN CORPUSCULAR HGB CONC 30.3 g/dl (32.0-36.5); MEAN CORPUSCULAR VOLUME 72.1 fl (80.0-96.0); RED CELL DISTRIBUTION WIDTH 16.7 % (11.5-14.5); WHITE BLOOD COUNT 5.4 K/mm3 (4.0-10.0)
[2017-05-01 06:25] LABS: ANION GAP 4 MEQ/L (8-16); BLOOD UREA NITROGEN 1 MG/DL (7-18); CALCIUM LEVEL 8.5 MG/DL (8.5-10.1); CARBON DIOXIDE LEVEL 30 MEQ/L (21-32); CHLORIDE LEVEL 103 MEQ/L (98-107); GLOMERULAR FILTRATION RATE > 60.0 (>60); GLUCOSE, FASTING 89 MG/DL (70-105); POTASSIUM SERUM 3.3 MEQ/L (3.5-5.1); SODIUM LEVEL 137 MEQ/L (136-145)
[2017-05-01] MEDS ORDERED: POTASSIUM CHLORIDE 10 MEQ SR TABLET PO ONE (08:00)
[2017-05-01] MEDS: ENOXAPARIN 40 MG/0.4 ML SYRINGE (J1650) SC SCH (09:07)
[2017-05-01] MEDS: FLUoxetine 20 MG CAP PO SCH (09:09)
[2017-05-01] MEDS: ONDANSETRON 4 MG TAB (S0181) PO PRN (09:09)
[2017-05-01] MEDS: levETIRAcetam 250MG TABLET (KEPPRA) PO SCH ×2 (09:09→20:42)
--- NOTE | 2017-05-01 09:11 | IPNPDOC ---
Subjective Date Seen The patient was seen on 05/01/17. Subjective Chief Complaint/HPI The patient is a 37-year-old female admitted with a reason for visit of Cellulitis And Abscess Of Right Leg. General: Reports: Fatigue, Denies: Chills, Night Sweats Constitutional: Reports: Malaise, Denies: Chills, Fever, Night Sweats, Weakness Eyes: Denies: Vision change Skin: Reports: Lesions (right ant. tib ulcer s/p I&D), Denies: Rash, Jaundice Pulmonary: Denies: Dyspnea, Cough Cardiovascular: Denies: Chest Pain, Palpitations Gastrointestinal: Reports: Nausea, Denies: Vomiting Genitourinary: Denies: Dysuria, Frequency Neurological: Reports: Weakness, Denies: Numbness Psych: Reports: Mood Normal Objective Physical Examination General Exam: Positive: Alert, Cooperative, Mild Distress Eye Exam: Positive: PERRLA, Conjunctiva & lids normal, EOMI, Negative: Sclera icteric ENT Exam: Positive: Atraumatic, Mucous membr. moist/pink, Pharynx Normal Neck Exam: Positive: Supple, Negative: JVD, thyromegaly Chest Exam: Positive: Clear to auscultation, Normal air movement Heart Exam: Positive: Rate Normal, Regular Rhythm, Normal S1, Normal S2, Negative: Murmurs, Rubs Abdomen Exam: Positive: Normal bowel sounds, Soft, Tenderness (continued generalized tenderness throughout, this apparently is a chronic finding), Negative: Hepatospenomegaly Extremity Exam: Positive: Normal pulses, Negative: Clubbing, Cyanosis, Edema Skin Exam: Positive: Nl turgor and temperature, Lesion (anterior tib., 3x4cm ulcer s/p I&D, serous fluid exudate), Negative: Breakdown Psych Exam: Positive: Mental status NL, Mood NL, Oriented x 3 Assessment /Plan Problems (1) Cellulitis and abscess of right leg Status: Acute Response to Treatment: Stable Problem Text: Again no fever and no white count CRP elevated two days ago blood cx 24 hours, neg. for growth will continue to treat with Vanco as gram culture MRSA +. Will arrange for outpt infusion daptomycin if insurance will cover will control pain, continue home pain meds with morphine IV (2) Insomnia Status: Chronic Response to Treatment: Stable Problem Text: stable, pt was able to sleep last night (3) Depression Status: Chronic Response to Treatment: Stable Problem Specific Plan: Monitor Clinically Problem Text: c/w home medications (4) Chronic anemia Status: Chronic Problem Text: 3.5/7.7 stable no active bleeding- will obtain consent for blood continue to monitor (5) H/O gastric bypass Status: Chronic Response to Treatment: Stable (6) Chronic generalized abdominal pain Status: Chronic Response to Treatment: Stable Problem Text: pts biggest concern is her pain in her leg, chronic abdominal pain from gastric surgery many years ago continue to monitor c/w home meds & morphine (7) Chronic back pain Status: Chronic Response to Treatment: Stable Problem Text: c/w home pain medications Plan/VTE VTE Prophylaxis Ordered?: Yes (Lovenox) VS, I&O, 24H, Fishbone Vital Signs/I&O Vital Signs Date Time Temp Pulse Resp B/P (MAP) Pulse Ox O2 Delivery O2 Flow Rate FiO2 05/01/17 09:02 16 05/01/17 08:08 98.4 88 103/57 (72) 97 Room Air I&O- Last 24 Hours up to 6 AM 05/01/17 06:00 Intake Total 2180 ml Output Total 3450 ml Balance -1270 ml Laboratory Data 24H LABS Laboratory Tests 2 05/01/17 05:26: Anion Gap 4L, Glomerular Filtration Rate > 60.0, Blood Urea Nitrogen 1L, Creatinine 0.50L, Sodium Level 137, Potassium Level 3.3L, Chloride Level 103, Carbon Dioxide Level 30, Calcium Level 8.5 CBC/BMP Laboratory Tests 05/01/17 05:26 Red Blood Count 3.55 L, Mean Corpuscular Volume 72.1 L, Mean Corpuscular Hemoglobin 21.8 L, Mean Corpuscular Hemoglobin Concent 30.3 L, Red Cell Distribution Width 16.7 H, Calcium Level 8.5 Microbiology Microbiology 04/29/17 Blood Culture - Preliminary, Resulted No growth after 24 hours . All specim... 04/29/17 Blood Culture - Preliminary, Resulted No growth after 24 hours . All specim... 04/29/17 Gram Stain - Final, Complete 04/29/17 Wound Culture - Final, Complete Staph.aureus Methicillin Resis GME ATTESTATION GME ATTESTATION My preceptor for this patient encounter was physically present in the building during the encounter and was fully available. As needed, all aspects of the patient interview, examination, medical decision making process, and medical care plan development were reviewed and approved by the preceptor. Preceptor is aware and concurs with the plan as stated in the body of this note and will attest to such by his/her cosignature. ANNIE ADAMS DO May 01, 2017 09:10
[2017-05-01] MEDS ORDERED: KETOROLAC 30 MG/ML VIAL (J1885) IV PRN (15:45)
[2017-05-01] MEDS ORDERED: MORPHINE 4 MG/ML 1ML SYRINGE IV PRN (15:45)
[2017-05-01] MEDS: zolPIDEM CR 6.25MG TABLET (AMBIEN CR) PO PRN (20:42)
[2017-05-02] MEDS: VANCOMYCIN HCL 1,000 MG, VIAL MATE ADAPTER 1 EACH in D5W 250 ML IV SCH ×3 (01:13→16:29)
[2017-05-02] MEDS: MORPHINE 4 MG/ML 1ML SYRINGE IV PRN ×2 (05:59→10:26)
[2017-05-02 06:00] VITALS: BP 104/55
[2017-05-02] MEDS: oxyCODONE 5MG TAB PO PRN ×2 (06:23→15:32)
[2017-05-02 07:12] LABS: MEAN CORPUSCULAR HEMOGLOBIN 21.7 pg (27.0-33.0); MEAN CORPUSCULAR HGB CONC 29.9 g/dl (32.0-36.5); MEAN CORPUSCULAR VOLUME 72.4 fl (80.0-96.0); RED CELL DISTRIBUTION WIDTH 16.3 % (11.5-14.5); WHITE BLOOD COUNT 5.9 K/mm3 (4.0-10.0)
[2017-05-02 07:20] LABS: ANION GAP 7 MEQ/L (8-16); BLOOD UREA NITROGEN < 1 MG/DL (7-18); CALCIUM LEVEL 9.3 MG/DL (8.5-10.1); CARBON DIOXIDE LEVEL 29 MEQ/L (21-32); CHLORIDE LEVEL 104 MEQ/L (98-107); GLOMERULAR FILTRATION RATE > 60.0 (>60); GLUCOSE, FASTING 113 MG/DL (70-105); POTASSIUM SERUM 4.2 MEQ/L (3.5-5.1); SODIUM LEVEL 140 MEQ/L (136-145)
[2017-05-02 08:07] VITALS: BP 111/59
[2017-05-02 08:27] VITALS: BP 111/59
[2017-05-02] MEDS: FLUoxetine 20 MG CAP PO SCH (08:56)
[2017-05-02] MEDS: ENOXAPARIN 40 MG/0.4 ML SYRINGE (J1650) SC SCH (08:56)
[2017-05-02] MEDS: levETIRAcetam 250MG TABLET (KEPPRA) PO SCH ×2 (08:56→20:52)
[2017-05-02] MEDS ORDERED: fentaNYL 12 MCG/HR PATCH TD SCH (09:00)
[2017-05-02] MEDS ORDERED: fentaNYL 25 MCG/HR PATCH TD SCH (09:00)
--- NOTE | 2017-05-02 09:10 | DS.PDOC ---
Discharge Summary General Date of Admission Apr 29, 2017 at 20:07 Date of Discharge 05-03-17 Discharge Summary Ms. Diaz is a 37-year-old female who presented to the emergency department with swelling, cellulitis, and abscess of the right lower extremity on the anterior tibia. This started approximately 3 days ago, she had a small punctate wound on the mid anterior bradford, she does not know what happened, she denies any knowledge of trauma or bug bite. The wound progressively get worse over the next few days despite the administration of IM Rocephin by her primary care provider. She has a past medical history of gastric bypass surgery with multiple following complications including the placement of a gastrostomy tube in 2013, and subsequent removal thereof in October 2016. Apparently she cannot absorb oral antibiotics properly. She has a remote history of MRSA, therefore it is suspected that this is MRSA as swell. She is being admitted to the hospital for IV antibiotic treatment of worsening cellulitis and abscess. PROCEDURES PERFORMED DURING STAY: None ADMITTING DIAGNOSES: 1.Cellulitis and abscess of R. leg 2. Insomnia 3. Depression DISCHARGE DIAGNOSES: 1.MRSA + Abscess of R. leg 2. Cellulitis 3.Chronic opioid dependence 4.History of gastric bypass surgery for morbid obesity in 2008 5.History of PEG tube removed in oct 2016 6.History of malabsorption syndrome requiring total parenteral nutrition (TPN), she did have her [place] removed in October 2016, she now has regular diet 7.Depression 8.Anxiety 9. Insomnia 10. Chronic back pain status post back surgery in 2012 and 2016 COMPLICATIONS/CHIEF COMPLAINT: Cellulitis And Abscess Of Right Leg. HISTORY OF PRESENT ILLNESS: Ms. Diaz is a 37-year-old female who presented to the emergency department with swelling,cellulitis, and abscess of the right lower extremity on the anterior tibia. HOSPITAL COURSE: During the course of her hospital stay the pt. was treated with IV antibitics for the abscess on her right tibia, the pt was also see by general surgery who performed an I&D of the abscess with subsequent drainage of a fair amount of puss/blood. The cultures were positive for MRSA and as such pt was treated with appropriate antibiotics for coverage, IV Vanco. The pt while in the hospital had a significant time with pain control and was maintained on both IV morphine plus oxycodone, soma and fentanyl. She had some soft BP's while hospitalized and as such her pain medication was held on those occasions. On day of d/c she feels well, still complains of some residual pain in the right leg but states it is a little better than one day prior. She understands she needs fo f/u with pain clinic for further pain mgmt. DISCHARGE MEDICATIONS: Please see below. ALLERGIES: Please see below. PHYSICAL EXAMINATION ON DISCHARGE: VITAL SIGNS: Please see below. GENERAL: AAox3, pleasant, conversant, sitting upright in bed HEENT: supple, nares patent b/l, tongue midline, moist mucus membranes, trachea midline CARDIOVASCULAR EXAMINATION: NSR, no murmurs, rubs or gallops appreciated, normal s1 and s2 RESPIRATORY EXAMINATION: CTA b/l, good air expansion and effort, no rales, rhonchi or wheezing appreciated ABDOMINAL EXAMINATION: nabsx4, no organomegaly, chronic achy type pain generalized with palpitation, no rebound ridgity or guarding, non-distended EXTREMITIES: no cyanosis or edema SKIN: intact expect for right ant. tibia which is s/p I&D one day prior NEUROLOGICAL EXAMINATION: no focal deficits PSYCHIATRIC EXAMINATION: normal affect and oralia LABORATORY DATA: Please see below. IMAGING: Right leg u/s 04-29-17 Clinical history: right leg wound. Findings: Real-time ultrasound imaging of the right leg was performed. There is diffuse soft tissue edema. At the site of the wound, there is a complex fluid collection measuring 2.1 x 1.6 x 2.7 cm. No solid lesion is identified. Impression: Complex Fluid collection at the site of concern, highly suspicious for an abscess. PROGNOSIS: stable ACTIVITY: As tolerated DIET: As tolerated DISCHARGE PLAN: Home, will f/u with infusion unit tomorrow for her dalvance DISPOSITION: Stable DISCHARGE INSTRUCTIONS: 1. follow w/pcp within 1 week of d/c 2. Will come to hospital for dalvance infusions ITEMS TO FOLLOWUP ON ON OUTPATIENT: 1. follow w/pcp within 1 week of d/c 2. Return to hospital in 1 day for dalvance infusion DISCHARGE CONDITION: Stable TIME SPENT ON DISCHARGE: Greater than 20 minutes. Vital Signs/I&Os Vital Signs Date Time Temp Pulse Resp B/P (MAP) Pulse Ox O2 Delivery O2 Flow Rate FiO2 05/02/17 08:30 Room Air 05/02/17 08:27 98.2 96 14 111/59 97 I&O- Last 24 Hours up to 6 AM 05/02/17 05:59 Intake Total 1950 ml Output Total 2000 ml Balance -50 ml Laboratory Data Labs 24H Laboratory Tests 2 05/01/17 12:16: Vancomycin Level Trough 10.4 05/02/17 06:57: Anion Gap 7L, Glomerular Filtration Rate > 60.0, Blood Urea Nitrogen < 1L, Creatinine 0.60, Sodium Level 140, Potassium Level 4.2#, Chloride Level 104, Carbon Dioxide Level 29, Calcium Level 9.3 CBC/BMP Laboratory Tests 05/02/17 06:57 Red Blood Count 3.93 L, Mean Corpuscular Volume 72.4 L, Mean Corpuscular Hemoglobin 21.7 L, Mean Corpuscular Hemoglobin Concent 29.9 L, Red Cell Distribution Width 16.3 H, Calcium Level 9.3 Microbiology Microbiology 04/29/17 Blood Culture - Preliminary, Resulted No Growth after 48 hours. All Specime... 04/29/17 Blood Culture - Preliminary, Resulted No Growth after 48 hours. All Specime... 04/29/17 Gram Stain - Final, Complete 04/29/17 Wound Culture - Final, Complete Staph.aureus Methicillin Resis Discharge Medications Scheduled Fentanyl (Fentanyl) 12 Mcg Tdsy, 12 MCG TD Q3RD, (Reported) WAS TAKEN OFF OF PATIENT AT [facility] 04/29 Fentanyl (Fentanyl) 25 Mcg Tdsy, 25 MCG TD Q3RD, (Reported) [facility] Fluoxetine HCl (Prozac) 20 Mg Cap, 20 MG PO DAILY, (Reported) Levetiracetam (Keppra) 500 Mg Tab, 500 MG PO BID, (Reported) Scheduled PRN (Oxycodone HCl) 5 Mg/5 Ml Martha, 10 MG PO Q6H PRN for PAIN, (Reported) HAS IN CASE PATIENT CAN'T KEEP DONE THE TABLET. WRITTEN BY SAME DOCTOR AT THE PAIN CLINIC. Carisoprodol (Soma) 350 Mg Tab, 350 MG PO TID PRN for MUSCLE SPASMS, (Reported) Lorazepam (Ativan) 1 Mg Tab, 1 MG PO Q6H PRN for ANXIETY, (Reported) Ondansetron (Zofran Odt) 8 Mg Tab, 8 MG PO Q8HP PRN for NAUSEA, (Reported) Oxycodone HCl (Oxycodone HCl) 10 Mg Tab, 10 MG PO Q6HP PRN for PAIN, (Reported) Promethazine HCl (Promethazine HCl) 12.5 Mg Tab, 12.5 MG PO Q6H PRN for NAUSEA, (Reported) Zolpidem Tartrate (Zolpidem Tartrate ER) 12.5 Mg Tab, 12.5 MG PO QHS PRN for SLEEP, (Reported) Allergies Coded Allergies: Butorphanol (Verified Allergy, Severe, HIVES/RESP. PROBLEMS (PERCOCET AND TYL#3 OK), 01/21/13) Sulfa Drugs (Verified Allergy, Severe, SWELLING,HIVES,RESP. PROBLEMS, ) Tomato (Verified Allergy, Severe, HIVES/RESP. PROBLEMS, 01/21/13) GME ATTESTATION GME ATTESTATION My preceptor for this patient encounter was physically present in the building during the encounter and was fully available. As needed, all aspects of the patient interview, examination, medical decision making process, and medical care plan development were reviewed and approved by the preceptor. Preceptor is aware and concurs with the plan as stated in the body of this note and will attest to such by his/her cosignature. ANNIE ADAMS DO May 02, 2017 09:10 BARTOLO MATUTE MD May 06, 2017 13:06
--- NOTE | 2017-05-02 11:02 | IPNPDOC ---
Subjective Date Seen The patient was seen on 05/02/17. Subjective Chief Complaint/HPI The patient is a 37-year-old female admitted with a reason for visit of Cellulitis And Abscess Of Right Leg. General: Denies: Chills, Night Sweats Constitutional: Reports: Malaise, Denies: Chills, Fever Eyes: Denies: Vision change ENT: Denies: Head Aches Skin: Reports: Lesions (RIGH ANT TIB S/P I&D), Denies: Rash Pulmonary: Denies: Dyspnea, Cough Cardiovascular: Denies: Chest Pain, Palpitations Gastrointestinal: Reports: Nausea, Abdominal Pain (GENERALIZED, CHRONIC), Denies: Vomiting Neurological: Denies: Weakness Psych: Reports: Mood Normal Objective Physical Examination General Exam: Positive: Alert, Cooperative, Mild Distress Eye Exam: Positive: PERRLA, Conjunctiva & lids normal, EOMI, Negative: Sclera icteric ENT Exam: Positive: Atraumatic, Mucous membr. moist/pink, Pharynx Normal Neck Exam: Positive: Supple, Negative: JVD, thyromegaly Chest Exam: Positive: Clear to auscultation, Normal air movement Heart Exam: Positive: Rate Normal, Regular Rhythm, Normal S1, Normal S2, Negative: Murmurs, Rubs Abdomen Exam: Positive: Normal bowel sounds, Soft, Tenderness (continued generalized tenderness throughout, this apparently is a chronic finding), Negative: Hepatospenomegaly Extremity Exam: Positive: Normal pulses, Negative: Clubbing, Cyanosis, Edema Skin Exam: Positive: Nl turgor and temperature, Lesion (anterior tib., 3x4cm ulcer s/p I&D, serous fluid exudate), Negative: Breakdown Psych Exam: Positive: Mental status NL, Mood NL, Oriented x 3 Assessment /Plan Problems (1) Cellulitis and abscess of right leg Status: Acute Response to Treatment: Stable Problem Text: Again no fever and no white count CRP elevated two days ago blood cx 48 hours, neg. for growth will continue to treat with Vanco as gram culture MRSA +. Will arrange for outpt infusion DALVANCE plan d/c tomorrow will control pain, continue home pain meds with morphine IV (2) Insomnia Status: Chronic Response to Treatment: Stable Problem Text: stable, pt was able to sleep last night (3) Depression Status: Chronic Response to Treatment: Stable Problem Specific Plan: Monitor Clinically Problem Text: c/w home medications (4) Chronic anemia Status: Chronic Problem Text: 3.93/8.5 stable no active bleeding- will obtain consent for blood continue to monitor (5) H/O gastric bypass Status: Chronic Response to Treatment: Stable (6) Chronic generalized abdominal pain Status: Chronic Response to Treatment: Stable Problem Text: pts biggest concern is her pain in her leg, chronic abdominal pain from gastric surgery many years ago continue to monitor c/w home meds & morphine pt to continue to follow with pain control clinic outpt (7) Chronic back pain Status: Chronic Response to Treatment: Stable Problem Text: c/w home pain medications Plan/VTE VTE Prophylaxis Ordered?: Yes (Lovenox) VS, I&O, 24H, Fishbone Vital Signs/I&O Vital Signs Date Time Temp Pulse Resp B/P (MAP) Pulse Ox O2 Delivery O2 Flow Rate FiO2 05/02/17 10:26 82 16 103/56 05/02/17 08:30 Room Air 05/02/17 08:27 98.2 97 I&O- Last 24 Hours up to 6 AM 05/02/17 06:00 Intake Total 1950 ml Output Total 2800 ml Balance -850 ml Laboratory Data 24H LABS Laboratory Tests 2 05/01/17 12:16: Vancomycin Level Trough 10.4 05/02/17 06:57: Anion Gap 7L, Glomerular Filtration Rate > 60.0, Blood Urea Nitrogen < 1L, Creatinine 0.60, Sodium Level 140, Potassium Level 4.2#, Chloride Level 104, Carbon Dioxide Level 29, Calcium Level 9.3 CBC/BMP Laboratory Tests 05/02/17 06:57 Red Blood Count 3.93 L, Mean Corpuscular Volume 72.4 L, Mean Corpuscular Hemoglobin 21.7 L, Mean Corpuscular Hemoglobin Concent 29.9 L, Red Cell Distribution Width 16.3 H, Calcium Level 9.3 Microbiology Microbiology 04/29/17 Blood Culture - Preliminary, Resulted No Growth after 48 hours. All Specime... 04/29/17 Blood Culture - Preliminary, Resulted No Growth after 48 hours. All Specime... 04/29/17 Gram Stain - Final, Complete 04/29/17 Wound Culture - Final, Complete Staph.aureus Methicillin Resis GME ATTESTATION GME ATTESTATION My preceptor for this patient encounter was physically present in the building during the encounter and was fully available. As needed, all aspects of the patient interview, examination, medical decision making process, and medical care plan development were reviewed and approved by the preceptor. Preceptor is aware and concurs with the plan as stated in the body of this note and will attest to such by his/her cosignature. ANNIE ADAMS DO May 02, 2017 11:02
[2017-05-02] MEDS ORDERED: FENTANYL REMOVAL DOCUMENTATION MISC XX SCH ×2 (12:15)
[2017-05-02] MEDS ORDERED: MORPHINE 2 MG/ML 1ML SYRINGE IV PRN (12:15)
[2017-05-02] MEDS ORDERED: MORPHINE 4 MG/ML 1ML SYRINGE IV PRN (12:15)
[2017-05-02] MEDS: ONDANSETRON 4 MG TAB (S0181) PO PRN (14:14)
[2017-05-02 14:54] VITALS: BP 109/57
[2017-05-02] MEDS: zolPIDEM CR 6.25MG TABLET (AMBIEN CR) PO PRN (20:53)
[2017-05-02 22:00] VITALS: BP 110/59
[2017-05-03] MEDS: VANCOMYCIN HCL 1,000 MG, VIAL MATE ADAPTER 1 EACH in D5W 250 ML IV SCH ×2 (01:21→09:00)
[2017-05-03] MEDS: oxyCODONE 5MG TAB PO PRN ×2 (01:25→09:49)
[2017-05-03 06:00] VITALS: BP 100/50
[2017-05-03 06:48] LABS: MEAN CORPUSCULAR HEMOGLOBIN 21.3 pg (27.0-33.0); MEAN CORPUSCULAR HGB CONC 29.2 g/dl (32.0-36.5); MEAN CORPUSCULAR VOLUME 72.9 fl (80.0-96.0); RED CELL DISTRIBUTION WIDTH 16.5 % (11.5-14.5); WHITE BLOOD COUNT 5.9 K/mm3 (4.0-10.0)
[2017-05-03 07:20] LABS: ANION GAP 7 MEQ/L (8-16); BLOOD UREA NITROGEN 4 MG/DL (7-18); CALCIUM LEVEL 8.4 MG/DL (8.5-10.1); CARBON DIOXIDE LEVEL 28 MEQ/L (21-32); CHLORIDE LEVEL 104 MEQ/L (98-107); GLOMERULAR FILTRATION RATE > 60.0 (>60); GLUCOSE, FASTING 87 MG/DL (70-105); POTASSIUM SERUM 3.8 MEQ/L (3.5-5.1); SODIUM LEVEL 139 MEQ/L (136-145)
[2017-05-03 08:18] VITALS: BP 107/55
[2017-05-03] MEDS: ENOXAPARIN 40 MG/0.4 ML SYRINGE (J1650) SC SCH (09:00)
[2017-05-03] MEDS: levETIRAcetam 250MG TABLET (KEPPRA) PO SCH (09:00)
[2017-05-03] MEDS: FLUoxetine 20 MG CAP PO SCH (09:00)
[2017-05-03 09:28] VITALS: BP 107/55
--- NOTE | 2017-06-17 16:49 | DSES ---
DATE OF ADMISSION: 04/29/2017 DATE OF DISCHARGE: 05/03/2017 PRIMARY CARE PROVIDER: Melba Alcantar ADDENDUM: DISCHARGE DIAGNOSIS: 1. Cellulitis and abscess of right leg with methicillin-resistant Staphylococcus aureus (MRSA). 2. Chronic anemia 3. Chronic abdominal pain. 4. History of gastric bypass for obesity. 5. Chronic back pain. 6. Depression. 7. Insomnia. 8. History of back surgery in 2012 and 2015. 9. History of malabsorption syndrome requiring total parenteral nutrition (TPN) in the past. 10. History of percutaneous endoscopic gastrostomy tube in the past, removed in October 2016. DISCHARGE MEDICATIONS: - Dalvance 1500 mg one time dose - soma 350 mg by mouth three times a day - fentanyl 37 mcg transdermal patch every third day - Prozac 20 mg daily - Keppra 500 mg by mouth twice a day - Ativan 1 mg by mouth every 6 hours as needed for anxiety - Zofran 8 mg by mouth every 8 hours as needed for nausea - oxycodone 10 mg by mouth every 6 hours as needed for pain - oxycodone liquid 5 mg per mL, 10 mg every 6 hours as needed for pain if cannot tolerate tablets - promethazine 12.5 mg by mouth every 6 hours as needed for nausea - zolpidem 12.5 mg by mouth at bedtime as needed for sleep. HOSPITAL COURSE: The patient stayed an extra day as the patient was not cleared by surgery for discharge. The patient has been set up with one dose of Dalvance to be given at home the day after tomorrow on May 04, 2017. Overnight, the patient did not have any compliant. Did not have any fever or chills. Her vitals were stable. She has been ambulating well. At present, the patient does not have any complaints. Vitals are stable and functioning at baseline and is being discharged home in stable condition. For the rest of the discharge summary, please refer to the discharge note done on 05/02/2017.
== END 2017-05-03 14:44 | disposition home health service (06) | DRG 383 ==
LOC: M ED 16:09 → M ED INP 20:07 → M MSPAV 21:05
PROVIDERS: ATTEND Internal Medicine Nephrology
PROC: 0HDKXZZ Extraction of Right Lower Leg Skin, External Approach (ICD-10-PCS; principal; 2017-04-30)
DX: L03.115 Cellulitis of right lower limb (principal); F32.9 Major depressive disorder, single episode, unspecified; L02.416 Cutaneous abscess of left lower limb; F41.9 Anxiety disorder, unspecified; G47.00 Insomnia, unspecified; R10.84 Generalized abdominal pain; M54.9 Dorsalgia, unspecified; B95.62 Methicillin resistant Staphylococcus aureus infection as the cause of diseases classified elsewhere; Z98.84 Bariatric surgery status; Z88.8 Allergy status to other drugs, medicaments and biological substances; Z88.2 Allergy status to sulfonamides; Z79.891 Long term (current) use of opiate analgesic; Z91.018 Allergy to other foods; Z79.899 Other long term (current) drug therapy

== ENCOUNTER → 2017-06-18 | Outpatient (CLI) | payer BC, OTHER ==
[~2017-06-18] MED LIST changes: +ATIV1TAB7 PO; +CARI350T PO; +FENT12PA TD; +FENT25PA TD; +FENT50PA TD; +FLUO20SO PO; +KEPP1TAB PO; +LORA1TAB12 PO; +ONDA8TAB8 PO; +OXYC10TA12 PO; +OXYC1SOL3 PO; +PHEN1SUP6 PR; +PROZ20CA11 PO; +ROCE1INJ4 INJ; +ZOFR8TAB4 PO; +ZOLP10TA2 PO; +ZOLP12.515 PO
--- NOTE | 2017-06-28 00:46 | ECWPNPC ---
PATIENT NAME: NI RICHMOND : 1980 GENDER: FEMALE VISIT DATE: 06/18/2017 DISCHARGE DATE: 06/18/17 0958 VISIT LOCKED DATE TIME: PHYSICIAN: LUIS BRANDON RESOURCE: LUIS BRANDON REASON FOR APPOINTMENT 1. MEDS HISTORY OF PRESENT ILLNESS HISTORY OF PRESENT ILLNESS: PAIN THE PATIENT DESCRIBES THE PAIN... FALL RISK SCREENING: SCREENING :NO FALLS IN THE PAST YEAR TODAY'S VISIT: NOTES: RATES PAIN TODAY 7/10. DESCRIBES THE PAIN CONSTANT, SHARP BUTNING. PAIN REMAINS CENTERED IN THE ABDOMEN. NOTES PAIN HAS BEEN MORE INTENSE AND PERSISTANT. IS USING THE FENTANYL 50 MCG PATCH, AND THE OXY TABS. . CURRENT MEDICATIONS TAKING PROMETHAZINE HCL 25 MG TABLET 1 TABLET NEEDED ORALLY Q 6 HRS PRN NAUSEA TAKING ZOLPIDEM TARTRATE 10 MG TABLET 1 TABLET AT BEDTIME NEEDED ORALLY BEFORE BEDTIME MDD=1 TAKING FLUOXETINE 1 TAB 20 MG ORALLY DAILY TAKING KEPPRA 500 MG TABLET ORALLY TWICE A DAY TAKING PROMETHAZINE HCL 25 MG SUPPOSITORY 1 SUPPOSITORY NEEDED RECTAL EVERY Q 8 HRS PRN NAUSEA TAKING SOMA 350 MG TABLET 1 TABLET ORALLY THREE TIMES A DAY NEEDED FOR SPASM MDD=3 TAKING CARAFATE 1 GM/10ML SUSPENSION 10 ML ORALLY FOUR TIMES DAILY TAKING ZOFRAN ODT 8 MG TABLET DISPERSIBLE DIRECTED ORALLY Q 6 HRS PRN NAUSEA TAKING ATIVAN 1 MG TABLET 1 TAB ORALLY UP TO 3 TIMES A DAY NEEDED TAKING FENTANYL 50 MCG/HR PATCH 72 HOUR 1 PATCH TO SKIN TRANSDERMAL APPLY 1 PATCH EVERY 72 HRS. REMOVE OLD PATCH AT THIS TIME. MDD=1 TAKING OXYCODONE HCL 15 MG TABLET 1 TABLET NEEDED ORALLY WEVERY 6-8 HOURS PRN PAIN MDD=3 TAKING OXYCODONE HCL 5 MG/5ML SOLUTION 5 ML -1O ML NEEDED ORALLY EVERY 6 HRS PRN PAIN MDD=40 ML/DAY NOT-TAKING OXYCODONE HCL 10 MG TABLET 1 TABLET NEEDED ORALLY EVERY 6 HRS PRN PAIN MDD=4 NOT-TAKING ROCEPHIN 1 GM SOLUTION RECONSTITUTED INJECTION EVERY DAY NOT-TAKING EFFEXOR XR 75 MG CAPSULE EXTENDED RELEASE 24 HOUR 1 CAPSULE WITH FOOD ORALLY ONCE A DAY, NOTES: IS TAPERING OFF THIS MED NOT-TAKING ABILIFY 10 MG TABLET 1 TABLET ORALLY ONCE A DAY NOT-TAKING BENTYL 10 MG CAPSULE 1 CAPSULE ORALLY FOUR TIMES A DAY NOT-TAKING FLUOXETINE NOT-TAKING CYCLOBENZAPRINE HCL 10 MG TABLET 1 TABLET ORALLY THREE TIMES A DAY NOT-TAKING SOMA 350 MG TABLET 2 TABLET NEEDED ORALLY 2 TIMES A DAY MEDICATION LIST REVIEWED AND RECONCILED WITH THE PATIENT PAST MEDICAL HISTORY DEPRESSION/ANXIETY HYDRATION ISSUES HX OF MRSA BACK PROBLEM ALLERGIES SULFA (FOR ALLERGY USE ONLY): ANAPHYLAXIS: ALLERGY FENTANYL: HEART RATE FLUCTUATIONS: ALLERGY NSAIDS: GI BLEED: CONTRAINDICATION SURGICAL HISTORY BACK SURGERY DR SU DECOMPRESSION SURGERY 08/2013 TONSILS GASTRIC BYPASS 2008 ENDOMETRIAL ABLATION HYSTERECTOMY HUBBARD CATHETER 05/21/2014 RIGHT LEG WOUND DRAINED-DESIREE 04/2017 HOSPITALIZATION/MAJOR DIAGNOSTIC PROCEDURE RELATED TO SURGERY REVIEW OF SYSTEMS REVIEWED BY: PROVIDER: LUIS DALEY . CONSTITUTIONAL: ANY CHANGE IN YOUR MEDICAL CONDITION? NO . CHILLS NO . FEVER NO . INFECTION: DO YOU HAVE NEW INFECTIONS? NO . DO YOU HAVE HISTORY OF MRSA? NO . MUSCULOSKELETAL: ANY NEW PATTERNS OF PAIN OR NUMBNESS? NO . GASTROENTEROLOGY: ANY NEW CHANGE IN BOWEL CONTROL? NO . GENITOURINARY: ANY NEW CHANGE IN BLADDER CONTROL? NO . IS THERE A CHANCE YOU COULD BE ? NO . HEMATOLOGY/LYMPH: DO YOU TAKE ANY BLOOD THINNERS? (FOR EXAMPLE- COUMADIN, PLAVIX, AGGRENOX, PLATEL, PRADAXA, OR XARELTO) NO . WHEN WAS YOUR LAST DOSE? DATE: TIME: . NEUROLOGY: HAVE YOU FALLEN IN THE PAST 6 MONTHS? NO . ANY NEW EXTREMITY NUMBNESS OR WEAKNESS? NO . CARDIOLOGY: DO YOU HAVE A PACEMAKER OR DEFIBRILLATOR? NO . RESPIRATORY: HAVE YOU BEEN SICK IN THE PAST WEEK? NO . FEVER NO . FLU LIKE SYMPTOMS? NO . COUGH NO . INTEGUMENTARY: DO YOU HAVE ANY RASHES OR OPEN SORES? YES, PT STATES SHE HAD RIGHT LEG WOUND, WAS SENT TO DR MARTIN'S OFFICE BUT HE WAS ON VACATION; PT WENT TO URGENT CARE WHERE PT [facility]. PT STATES DR RAMÍREZ DRAINED WOUND. PT STATES SHE WAS ADMITTED AND PLACED ON ROCEPHIN, VANCOMYCIN, DALVANCE IV. PT STATES SHE WAS D/C HOME WITH IV ABX DALVANCE WITH HOME CARE. WOUND HAS IMPROVED SIGNIFICANTLY&NBSP;. ALLERGIC/IMMUNO: ARE YOU ALLERGIC TO SHELLFISH OR IV DYE? NO . ANY NEW ALLERGIES? NO . PSYCHIATRIC: DO YOU HAVE THOUGHTS OF HURTING YOURSELF OR SOMEONE ELSE? NO . ARE YOU ABUSED, NEGLECTED, OR IN AN UNSAFE ENVIRONMENT? NO . ENDOCRINOLOGY: ARE YOU DIABETIC? NO . OTHER: DO YOU NEED ANY PRESCRIPTIONS? YES, OXYCODONE, CARAFATE . IF YES, PLEASE LIST: ____ . ANY NEW PROBLEMS WITH YOUR MEDICATIONS? NO . WHEN DID YOU LAST EAT? ____ . WHEN DID YOU LAST DRINK? ____ . WHAT DID YOU LAST DRINK? ____ . NAME OF PERSON DRIVING YOU HOME? ____ . DO YOU HAVE ANY OTHER QUESTIONS OR CONCERNS NO . VITAL SIGNS WT 138 LBS, HT 66 IN, BMI 22.27 INDEX, BP 186/71 MM HG, REPEAT BP 117/68 MM HG, HR 89 /MIN, RR 18 /MIN, TEMP 97.8 F, OXYGEN SAT % 100%, [place] INITIALS CM 0850, REVIEWED BY: YESIKA. EXAMINATION GENERAL EXAMINATION: GENERAL APPEARANCE:COLOR PALE. PSYCHALERT , ORIENTED X 3 , APPROPRIATE MOOD AND AFFECT. SMILING TODAY. VERY TALKATIVE. . LUNGS:CLEAR TO AUSCULTATION BILATERALLY. HEART:HEART RATE REGULAR. ABDOMEN:TENDER IN EPIGASTRIC REGION. NO DISTENTION. BOWEL SOUNDS HYPERACTIVE. ASSESSMENTS EPIGASTRIC PAIN - R10.13 (PRIMARY) CHRONICALLY ON OPIATE THERAPY - Z79.899 TREATMENT EPIGASTRIC PAIN REFILL CARAFATE SUSPENSION, 1 GM/10ML, 10 ML, ORALLY, FOUR TIMES DAILY, 30 DAY(S), 120 MILLILITER, REFILLS 5 REFILL PROMETHAZINE HCL TABLET, 25 MG, 1 TABLET NEEDED, ORALLY, Q 6 HRS PRN NAUSEA, 14 DAY(S), 60, REFILLS 5 REFILL FENTANYL PATCH 72 HOUR, 50 MCG/HR, 1 PATCH TO SKIN, TRANSDERMAL, APPLY 1 PATCH EVERY 72 HRS. REMOVE OLD PATCH AT THIS TIME. MDD=1, 30 DAY(S), 10, REFILLS 0 REFILL OXYCODONE HCL TABLET, 15 MG, 1 TABLET NEEDED, ORALLY, WEVERY 6-8 HOURS PRN PAIN MDD=3, 30 DAY(S), 90, REFILLS 0 NOTES: CONTINUE CURRENT MEDS.UTOX TODAY. CLINICAL NOTES: ISTOP REGISTRY REVIEWED AND DEMNOSTRATES COMPLLIANCE. BRINGS IN MEDICATIONS WHICH IS APPROPRIATE FOR WHAT WAS DISPENSED. RECENT URINE TOXICOLOGY REVIEWED. NO UNAUTHORIZED MEDICATIONS. NO ILLICIT SUBSTANCES AND PRESCRIBED MEDICATIONS WERE PRESENT. PROCEDURE CODES FA211 ESTABILISHED PATIENT [facility] CHARGE DISPOSITION & COMMUNICATION FOLLOW UP 1 MONTH (REASON: ABD PAIN) ELECTRONICALLY SIGNED BY RYLEY CROOK ON 06/27/2017 AT 09:43 AM EDT DISCLAIMER : THIS IS A VISIT SUMMARY EXTRACTED FROM THE [employer] CHART. IT IS NOT A COPY OF THE [employer] PROGRESS NOTE. HAILEY
== END | disposition home or self-care (01) ==
LOC: M PAIN 09:00
PROVIDERS: ATTEND Nurse Practitioner Family
DX: G89.29 Other chronic pain (principal); R10.13 Epigastric pain; F33.9 Major depressive disorder, recurrent, unspecified; F41.9 Anxiety disorder, unspecified; Z86.14 Personal history of Methicillin resistant Staphylococcus aureus infection; Z79.899 Other long term (current) drug therapy; Z88.2 Allergy status to sulfonamides; Z88.8 Allergy status to other drugs, medicaments and biological substances

== ENCOUNTER → 2017-07-02 | Outpatient (CLI) | payer BC, OTHER ==
--- NOTE | 2017-07-17 00:23 | ECWPNPC ---
PATIENT NAME: NI RICHMOND : 1980 GENDER: FEMALE VISIT DATE: 07/02/2017 DISCHARGE DATE: 07/02/17 1502 VISIT LOCKED DATE TIME: PHYSICIAN: LUIS BRANDON RESOURCE: LUIS BRANDON REASON FOR APPOINTMENT 1. STOMACH HISTORY OF PRESENT ILLNESS HISTORY OF PRESENT ILLNESS: PAIN THE PATIENT DESCRIBES THE PAIN... FALL RISK SCREENING: SCREENING :NO FALLS IN THE PAST YEAR TODAY'S VISIT: NOTES: NI COMES TO APPOINTMENT WITH HER GARTH. RATES PAIN TODAY 7-8/10. STATES IS HAVING A LOT OF NAUEA AND IS THROWING UP GREEN BILE. HAS VOMITED 4 TIMES TODAY. STATES PHENERGAN AND ZOFRAN ARE NOT HELPING, STATES PAIN IS INTENSE, CONTANT AND IN EPIGASTRIC AND LLQ. STATES BOWELS ARE MOVING. HAS HAD SOME DARK OLD BLOOD INTHE STOOL. IS URINATING FREQUENTLY AND HAS BRIGHT RED BLOOD IN THE URINE. ALSO HAS PAIN IN BACK. HAS BEEN HAVING FEVERS. CURRENT MEDICATIONS TAKING ZOLPIDEM TARTRATE 10 MG TABLET 1 TABLET AT BEDTIME NEEDED ORALLY BEFORE BEDTIME MDD=1 TAKING FLUOXETINE 1 TAB 20 MG ORALLY DAILY TAKING KEPPRA 500 MG TABLET ORALLY TWICE A DAY TAKING PROMETHAZINE HCL 25 MG SUPPOSITORY 1 SUPPOSITORY NEEDED RECTAL EVERY Q 8 HRS PRN NAUSEA TAKING SOMA 350 MG TABLET 1 TABLET ORALLY THREE TIMES A DAY NEEDED FOR SPASM MDD=3 TAKING ZOFRAN ODT 8 MG TABLET DISPERSIBLE DIRECTED ORALLY Q 6 HRS PRN NAUSEA TAKING ATIVAN 1 MG TABLET 1 TAB ORALLY UP TO 3 TIMES A DAY NEEDED TAKING CARAFATE 1 GM/10ML SUSPENSION 10 ML ORALLY FOUR TIMES DAILY TAKING PROMETHAZINE HCL 25 MG TABLET 1 TABLET NEEDED ORALLY Q 6 HRS PRN NAUSEA TAKING FENTANYL 50 MCG/HR PATCH 72 HOUR 1 PATCH TO SKIN TRANSDERMAL APPLY 1 PATCH EVERY 72 HRS. REMOVE OLD PATCH AT THIS TIME. MDD=1 TAKING OXYCODONE HCL 15 MG TABLET 1 TABLET NEEDED ORALLY WEVERY 6-8 HOURS PRN PAIN MDD=3 TAKING OXYCODONE HCL 5 MG/5ML SOLUTION 5 ML -1O ML NEEDED ORALLY EVERY 6 HRS PRN PAIN MDD=40 ML/DAY NOT-TAKING OXYCODONE HCL 10 MG TABLET 1 TABLET NEEDED ORALLY EVERY 6 HRS PRN PAIN MDD=4 NOT-TAKING ROCEPHIN 1 GM SOLUTION RECONSTITUTED INJECTION EVERY DAY NOT-TAKING EFFEXOR XR 75 MG CAPSULE EXTENDED RELEASE 24 HOUR 1 CAPSULE WITH FOOD ORALLY ONCE A DAY, NOTES: IS TAPERING OFF THIS MED NOT-TAKING ABILIFY 10 MG TABLET 1 TABLET ORALLY ONCE A DAY NOT-TAKING BENTYL 10 MG CAPSULE 1 CAPSULE ORALLY FOUR TIMES A DAY NOT-TAKING FLUOXETINE NOT-TAKING CYCLOBENZAPRINE HCL 10 MG TABLET 1 TABLET ORALLY THREE TIMES A DAY NOT-TAKING SOMA 350 MG TABLET 2 TABLET NEEDED ORALLY 2 TIMES A DAY MEDICATION LIST REVIEWED AND RECONCILED WITH THE PATIENT PAST MEDICAL HISTORY DEPRESSION/ANXIETY HYDRATION ISSUES HX OF MRSA BACK PROBLEM ALLERGIES SULFA (FOR ALLERGY USE ONLY): ANAPHYLAXIS: ALLERGY NSAIDS: GI BLEED: CONTRAINDICATION SOCIAL HISTORY GENERAL: TOBACCO USE ARE YOU A:NONSMOKER GNOSTICIST [id number] NONE LANGUAGE LANGUAGES SPOKEN:ROMANIAN LEARNING BARRIERS / SPECIAL NEEDS CHANGE FROM LAST VISIT?NO BARRIERS TO LEARNING?NO HEARING IMPAIRED?NO VISION IMPAIRED?NO COGNITIVELY IMPAIRED?NO READINESS TO LEARN?YES LEARNING PREFERENCES?NO LEARNING CAPABILITIES PRESENT?YES EMOTIONAL BARRIERS?NO SPECIAL DEVICES?NO COMMUNITY LIAISON NEEDED?NO NEW PATIENT PAIN DIARY TODAY'S VISITNOTES FROM 0-10, WHAT LEVEL IS YOUR PAIN TODAY?0 PAIN CLINIC PFS, CLERGY, PUBLIC HEALTH REFERRALS PFS REFERRAL NEEDED?NO CLERGY REFERRAL NEEDED?NO PUBLIC HEALTH REFERRAL NEEDED?NO WAS THE PROVIDER NOTIFIED OF ANY PERTINENT INFO?NO HAS THE PATIENT BEEN EDUCATED REGARDING HIS/HER PLAN OF CARE?YES HAS THE PATIENT BEEN EDUCATED REGARDING PAIN, THE RISK FOR PAIN, THE IMPORTANCE OF EFFECTIVE PAIN MANAGEMENT, AND THE PAIN ASSESSMENT PROCESS?YES REVIEW OF SYSTEMS REVIEWED BY: PROVIDER: LUIS DALEY . CONSTITUTIONAL: ANY CHANGE IN YOUR MEDICAL CONDITION? NO . CHILLS NO . FEVER NO . INFECTION: DO YOU HAVE NEW INFECTIONS? PROBABLE UTI . DO YOU HAVE HISTORY OF MRSA? NO . MUSCULOSKELETAL: ANY NEW PATTERNS OF PAIN OR NUMBNESS? NO . GASTROENTEROLOGY: ANY NEW CHANGE IN BOWEL CONTROL? NO . GENITOURINARY: ANY NEW CHANGE IN BLADDER CONTROL? NO . IS THERE A CHANCE YOU COULD BE ? NO . HEMATOLOGY/LYMPH: DO YOU TAKE ANY BLOOD THINNERS? (FOR EXAMPLE- COUMADIN, PLAVIX, AGGRENOX, PLATEL, PRADAXA, OR XARELTO) NO . WHEN WAS YOUR LAST DOSE? DATE: TIME: . NEUROLOGY: HAVE YOU FALLEN IN THE PAST 6 MONTHS? NO . ANY NEW EXTREMITY NUMBNESS OR WEAKNESS? NO . CARDIOLOGY: DO YOU HAVE A PACEMAKER OR DEFIBRILLATOR? NO . RESPIRATORY: HAVE YOU BEEN SICK IN THE PAST WEEK? NO . FEVER NO . FLU LIKE SYMPTOMS? NO . COUGH NO . INTEGUMENTARY: DO YOU HAVE ANY RASHES OR OPEN SORES? NO . ALLERGIC/IMMUNO: ARE YOU ALLERGIC TO SHELLFISH OR IV DYE? NO . ANY NEW ALLERGIES? NO . PSYCHIATRIC: DO YOU HAVE THOUGHTS OF HURTING YOURSELF OR SOMEONE ELSE? NO . ARE YOU ABUSED, NEGLECTED, OR IN AN UNSAFE ENVIRONMENT? NO . ENDOCRINOLOGY: ARE YOU DIABETIC? NO . OTHER: DO YOU NEED ANY PRESCRIPTIONS? NO . IF YES, PLEASE LIST: ____ . ANY NEW PROBLEMS WITH YOUR MEDICATIONS? NO . WHEN DID YOU LAST EAT? ____ . WHEN DID YOU LAST DRINK? ____ . WHAT DID YOU LAST DRINK? ____ . NAME OF PERSON DRIVING YOU HOME? ____ . DO YOU HAVE ANY OTHER QUESTIONS OR CONCERNS NO . VITAL SIGNS WT 140 LBS, HT 66 IN, BMI 22.59 INDEX, BP 125/60 MM HG, HR 115 /MIN, RR 18 /MIN, TEMP 98.4 F, OXYGEN SAT % 100%, NA INITIALS AW 1356, REVIEWED BY: CS. EXAMINATION GENERAL EXAMINATION: GENERAL APPEARANCE:COLOR PALE. PSYCHALERT , ORIENTED X 3 , APPROPRIATE MOOD AND AFFECT. VERY SAD TODAY. LUNGS:CLEAR TO AUSCULTATION BILATERALLY. HEART:HEART RATE REGULAR. ABDOMEN:TENDER IN EPIGASTRIC REGION. NO DISTENTION. BOWEL SOUNDS QUIET. ASSESSMENTS EPIGASTRIC PAIN - R10.13 (PRIMARY) CHRONICALLY ON OPIATE THERAPY - Z79.899 TREATMENT EPIGASTRIC PAIN NOTES: WILL TRY TO GET ACTAVIST FORM OF FENTANYL. APPLY PRESENT 2 PATCHES OF 25 MCG FENTANYL. CONTACT PCP OR GO TO URGENT CARE ABOUT URINARY TRACT INFECTION. CLINICAL NOTES: ISTOP REGISTRY REVIEWED AND DEMNOSTRATES COMPLLIANCE. BRINGS IN MEDICATIONS WHICH IS APPROPRIATE FOR WHAT WAS DISPENSED. RECENT URINE TOXICOLOGY REVIEWED. NO UNAUTHORIZED MEDICATIONS. NO ILLICIT SUBSTANCES AND PRESCRIBED MEDICATIONS WERE PRESENT. OTHERS START ZOLPIMIST SOLUTION, 5 MG/ACT, 1 SPRAY AT BEDTIME NEEDED, ORALLY, BEFORE BEDTIME, 30 DAY(S), 1 BOTTLE, REFILLS 0 PROCEDURE CODES FA211 ESTABILISHED PATIENT [facility] CHARGE DISPOSITION & COMMUNICATION FOLLOW UP KEEP SCHEDULED APPOINTMENT (REASON: ABD PAIN) ELECTRONICALLY SIGNED BY RYLEY CROOK ON 07/16/2017 AT 07:48 PM EDT DISCLAIMER : THIS IS A VISIT SUMMARY EXTRACTED FROM THE [employer] CHART. IT IS NOT A COPY OF THE [employer] PROGRESS NOTE. HAILEY
== END ==
LOC: M PAIN 14:00
PROVIDERS: ATTEND Nurse Practitioner Family
DX: R10.13 Epigastric pain (principal); Z79.899 Other long term (current) drug therapy; Z79.891 Long term (current) use of opiate analgesic; Z88.2 Allergy status to sulfonamides; Z88.8 Allergy status to other drugs, medicaments and biological substances

== ENCOUNTER → 2017-07-03 | Outpatient (REF) | payer BC, OTHER | LOC: M LAB REF 09:00 | PROVIDERS: ATTEND Physician Assistant | DX: R30.0 Dysuria (principal) ==

== ENCOUNTER 2017-08-21 13:13 | Inpatient (IN) | payer BC, OTHER ==
[~2017-08-21] VITALS: Ht 170.2 cm; Wt 66.7 kg
[~2017-08-21 13:13] MED LIST changes: -CARI350T PO; -FENT50PA TD; -FLUO20SO PO; -LORA1TAB12 PO; -ONDA8TAB8 PO; -PHEN1SUP6 PR; -ZOLP10TA2 PO
[2017-08-21] MEDS ORDERED: NS 1,000 ML IV ONE ×3 (13:30→15:15)
[2017-08-21 13:59] LABS: BASO % 0.3 % (0.0-1.0); EOS % 0.3 % (0.0-3.0); IMMATURE GRANULOCYTE % 0.4 % (0-0); LYMPH # 0.8 10^3/uL (1.5-4.5); LYMPH % 5.7 % (24.0-44.0); MEAN CORPUSCULAR HGB CONC 28.6 g/dl (32.0-36.5); MEAN CORPUSCULAR VOLUME 73.4 fl (80.0-96.0); MONO # 0.9 10^3/uL (0.0-0.8); MONO % 6.2 % (0.0-5.0); NEUTROPHILS # 12.3 10^3/uL (1.8-7.7); NEUTROPHILS % 87.1 % (36.0-66.0); PLATELET COUNT, AUTOMATED 295 10^3/uL (150-450); RED CELL DISTRIBUTION WIDTH 17.8 % (11.5-14.5); WHITE BLOOD COUNT 14.1 10^3/uL (4.0-10.0)
--- NOTE | 2017-08-21 14:02 | REP ---
Portable chest, 01:44 p.m., single AP view, the patient upright: Comparison is 12/16/2016. The lung snell are clear. The cardiac size is normal. The ericka, mediastinum, and bony thorax are unremarkable. Impression: Negative portable chest. Signed by Fredrick Joe MD 08/21/2017 01:54 P
[2017-08-21] MEDS ORDERED: PANTOPRAZOLE 40MG INJ (PROTONIX) (C9113) IV ONE (14:30)
[2017-08-21] MEDS ORDERED: ONDANSETRON 4MG/2ML VIAL (J2405) IV ONE (14:30)
[2017-08-21 14:31] LABS: INR 1.01
[2017-08-21 14:32] LABS: ALBUMIN 3.8 GM/DL (3.2-5.2); ALBUMIN/GLOBULIN RATIO 1.03 (1.00-1.93); ALKALINE PHOSPHATASE 169 U/L (45-117); ALT/SGPT 50 U/L (12-78); AMYLASE 82 U/L (25-115); ANION GAP 14 MEQ/L (8-16); AST/SGOT 80 U/L (7-37); BILIRUBIN,DIRECT 0.1 MG/DL (0.0-0.2); BILIRUBIN,TOTAL 0.4 MG/DL (0.2-1.0); BLOOD UREA NITROGEN 5 MG/DL (7-18); CALCIUM LEVEL 9.1 MG/DL (8.5-10.1); CARBON DIOXIDE LEVEL 20 MEQ/L (21-32); CHLORIDE LEVEL 106 MEQ/L (98-107); CREATININE FOR GFR 0.81 MG/DL (0.55-1.02); GLOMERULAR FILTRATION RATE > 60.0 (>60); GLUCOSE, FASTING 230 MG/DL (70-105); POTASSIUM SERUM 3.3 MEQ/L (3.5-5.1); SODIUM LEVEL 140 MEQ/L (136-145); TOTAL PROTEIN 7.5 GM/DL (6.4-8.2)
[2017-08-21] MEDS: MORPHINE 4 MG/ML 1ML SYRINGE IV PRN ×2 (14:55→15:26)
[2017-08-21] MEDS ORDERED: PROMETHAZINE INJ 25 MG/ML VIAL (J2550) IV ONE (15:30)
[2017-08-21] MEDS ORDERED: ISOVUE-370 76% 100ML VIAL (Q9967) As Ordered ONE (16:10)
[2017-08-21] MEDS ORDERED: HYDROmorphone HCL 1 MG/ML SYRINGE (J1170) As Ordered ONE (16:25)
[2017-08-21] MEDS ORDERED: HYDROmorphone HCL 1 MG/ML SYRINGE (J1170) IV ONE (17:30)
--- NOTE | 2017-08-21 17:54 | REP ---
CT ABDOMEN AND PELVIS WITH CONTRAST: HISTORY: Vomiting. Contrast: Isovue-370 100 mL. COMPARISON: 05/27/2016. The patient is status-post cholecystectomy and gastric bypass. The liver, pancreas, spleen, adrenal glands and kidneys are normal in appearance. The patient is status-post hysterectomy. There is mild distension of the urinary bladder. There are multiple dilated loops of small intestine. There is no mass, adenopathy or free fluid. The visualized lungs are clear. The patient is status-post L4-S1 anterior and posterior spinal fusion and right L4-5 and L5-S1 laminectomy. IMPRESSION: 1. The patient is status-post cholecystectomy and gastric bypass. 2. The patient is status-post hysterectomy. 3. There are multiple dilated loops of small intestine. This may represent ileus or early or partial small bowel obstruction. Signed by Obi De La Rosa MD 08/21/2017 06:33 P
[2017-08-21] MEDS: HYDROmorphone HCL 1 MG/ML SYRINGE (J1170) IV PRN ×2 (17:55→20:30)
[2017-08-21] MEDS ORDERED: SUCRALFATE 1 GM TAB PO ONE (18:00)
[2017-08-21] MEDS ORDERED: BISACODYL 10 MG SUPP PR PRN (18:15)
[2017-08-21] MEDS ORDERED: MOM 30ML SUSPENSION UDC PO PRN (18:15)
[2017-08-21] MEDS ORDERED: HYDROmorphone HCL 2 MG/ML 1ML VIAL (J1170) IV PRN (18:15)
[2017-08-21] MEDS ORDERED: ZOLP10TA2 PO (18:38)
[2017-08-21] MEDS ORDERED: FLUO20SO PO (18:38)
[2017-08-21] MEDS ORDERED: LORA1TAB12 PO (18:38)
[2017-08-21] MEDS ORDERED: ONDA8TAB8 PO (18:38)
[2017-08-21] MEDS ORDERED: OXYC1SOL3 PO (18:38)
[2017-08-21] MEDS ORDERED: OXYC15TA76 PO (18:38)
[2017-08-21] MEDS ORDERED: PHEN1SUP6 PR (18:38)
[2017-08-21] MEDS ORDERED: CARI350T PO (18:38)
[2017-08-21] MEDS ORDERED: FENT50PA TD (18:38)
[2017-08-21] MEDS ORDERED: KEPP1TAB PO (18:38)
[2017-08-21 20:15] VITALS: BP 134/72
[2017-08-21] MEDS: LR 1,000 ML IV SCH (20:28)
[2017-08-21] MEDS: levETIRAcetam 250MG TABLET (KEPPRA) PO SCH (20:29)
[2017-08-21] MEDS: SENOKOT S TAB PO SCH (20:29)
[2017-08-21] MEDS: SUCRALFATE 1 GM TAB PO SCH (20:29)
[2017-08-21] MEDS: METOCLOPRAMIDE INJ 10MG/2ML VIAL (J2765) IV PRN (20:29)
[2017-08-22] MEDS: METOCLOPRAMIDE INJ 10MG/2ML VIAL (J2765) IV PRN (02:10)
[2017-08-22] MEDS: HYDROmorphone HCL 1 MG/ML SYRINGE (J1170) IV PRN ×5 (02:11→20:34)
[2017-08-22] MEDS: LR 1,000 ML IV SCH (02:11)
[2017-08-22 06:00] VITALS: BP 114/62
[2017-08-22 06:47] LABS: BASO % 0.5 % (0.0-1.0); EOS % 0.7 % (0.0-3.0); IMMATURE GRANULOCYTE % 0.5 % (0-0); LYMPH # 1.1 10^3/uL (1.5-4.5); LYMPH % 17.8 % (24.0-44.0); MEAN CORPUSCULAR HEMOGLOBIN 21.3 pg (27.0-33.0); MEAN CORPUSCULAR HGB CONC 29.7 g/dl (32.0-36.5); MEAN CORPUSCULAR VOLUME 71.7 fl (80.0-96.0); MONO # 0.5 10^3/uL (0.0-0.8); MONO % 8.3 % (0.0-5.0); NEUTROPHILS # 4.4 10^3/uL (1.8-7.7); NEUTROPHILS % 72.2 % (36.0-66.0); PLATELET COUNT, AUTOMATED 262 10^3/uL (150-450); RED CELL DISTRIBUTION WIDTH 17.9 % (11.5-14.5); WHITE BLOOD COUNT 6.1 10^3/uL (4.0-10.0)
[2017-08-22 07:05] LABS: ANION GAP 8 MEQ/L (8-16); BLOOD UREA NITROGEN 4 MG/DL (7-18); CALCIUM LEVEL 8.2 MG/DL (8.5-10.1); CARBON DIOXIDE LEVEL 25 MEQ/L (21-32); CHLORIDE LEVEL 113 MEQ/L (98-107); CREATININE FOR GFR 0.49 MG/DL (0.55-1.02); GLOMERULAR FILTRATION RATE > 60.0 (>60); GLUCOSE, FASTING 85 MG/DL (70-105); POTASSIUM SERUM 3.3 MEQ/L (3.5-5.1); SODIUM LEVEL 146 MEQ/L (136-145)
[2017-08-22] MEDS: SUCRALFATE 1 GM TAB PO SCH ×4 (07:47→20:34)
[2017-08-22] MEDS: ONDANSETRON 4MG/2ML VIAL (J2405) IV PRN (07:47)
[2017-08-22] MEDS: FLUoxetine 20 MG CAP PO SCH (08:07)
[2017-08-22] MEDS: SENOKOT S TAB PO SCH ×2 (08:07→20:34)
[2017-08-22] MEDS: ENOXAPARIN 40 MG/0.4 ML SYRINGE (J1650) SC SCH (08:07)
[2017-08-22] MEDS: PANTOPRAZOLE 40MG INJ (PROTONIX) (C9113) IV SCH (08:07)
[2017-08-22] MEDS: levETIRAcetam 250MG TABLET (KEPPRA) PO SCH ×2 (08:08→20:34)
--- NOTE | 2017-08-22 10:39 | REP ---
Acute abdominal series series including PA chest and supine upright abdomen: PA chest: Comparison is 2016. The lung snell are clear. Cardiac size is normal. The ericka, mediastinum, bony thorax are unremarkable. There is no free subdiaphragmatic air. Impression: Negative PA chest. No interval change. Abdomen, supine upright views: Comparison is a CT of the abdomen pelvis dated 08/21 2017. There is no bowel distension. The dilated small bowel loops on the comparison CT have resolved. There are numerous surgical staple lines and homeostasis clips throughout the abdomen. There is surgical fusion and intervertebral disc spacers in the inferior lumbar spine, unchanged. Impression: No bowel distension. The previous small bowel distension has resolved. Signed by Fredrick Joe MD 08/22/2017 10:30 A
[2017-08-22] MEDS: KCL 20MEQ IN D5/0.45NS 1000ML 1,000 ML IV SCH ×3 (10:53→20:36)
--- NOTE | 2017-08-22 11:21 | ECGEPIP ---
Stationary ECG Study [facility] - ED Test Date: 2017-08-21 Pat Name: NI RICHMOND Department: Room: - Gender: F Reed Man: augusto : 1980 Requested By: Charmaine Hill Order Number: [id number] Reading MD: Charmaine Hill Measurements Intervals [place] Rate: 81 P: 63 DC: 104 QRS: 43 QRSD: 80 T: 22 QT: 423 QTc: 493 Interpretive Statements SINUS RHYTHM WITH MARKED SINUS ARRHYTHMIA WITH SHORT DC INTERVAL NSTTW ABNORMALITY DECREASED RATE 12/16/16 Electronically Signed On 08-22-2017 11:21:23 EDT by Charmaine Hill
[2017-08-22] MEDS: PROMETHAZINE INJ 25 MG/ML VIAL (J2550) IV PRN ×2 (11:46→17:46)
[2017-08-22 14:00] VITALS: BP 119/63
--- NOTE | 2017-08-22 15:10 | HPEPDOC ---
General Surgery H&P Date of Admission Aug 21, 2017 Attending Physician: AMANDA JAMISON MD History and Physical CHIEF COMPLAINT: Abdominal pain, nausea, vomiting HISTORY OF PRESENT ILLNESS: Patient is known to me from previous emergency room visits as well as visits to my clinic prior. She is 37 years old and has had chronic abdominal complaints including abdominal pain, nausea and vomiting after she had gastric bypass done on her. It got to point that it is sutured so severe that she considered having the gastric bypass reversed. She tells me she went to [facility] but on their evaluation she is not a candidate for reversal of gastric bypass. Baseline she has chronic abdominal pain for which she is on high-dose narcotics. She reports she is constipated. She is chronically nauseated and she takes Phenergan suppository as she can't hold any pills. Notably she seem to have gained some weight since the last time I saw her 3 years ago. This present episode this of sudden onset. She tells me she started having severe crampy generalized abdominal pain at about 10 in the morning followed by multiple bouts of retching and vomiting up till about 2 in the afternoon with continued pain. She then presented herself to the emergency room and was evaluated there. She denies any sick contacts or any other family members with similar symptoms. No recent travel, no intake of raw food, seafoods. She denies any prior episodes of small bowel obstruction. She does have multiple surgeries that may predispose her to adhesive small bowel obstruction. ALLERGIES: Please see below. HOME MEDICATIONS: Please see below. 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 REVIEW OF SYSTEMS: GENERAL: [Denies chills, fatigue, fever, reports some weight gain now HEENT: Denies blurred vision and double vision. Denies ear symptoms. Denies hoarseness. NECK: Denies any neck pain. CARDIOVASCULAR: Denies chest pain and palpitations. MUSCULOSKELETAL: Denies arthralgias, back pain and thrombophlebitis. SKIN: Denies rash. NEUROLOGIC: Denies headache, stroke and transient ischemic attack. PSYCHIATRIC: Denies anxiety and depression. ENDOCRINE: Denies thyroid disease. HEMATOLOGY/ONCOLOGY: Denies any bleeding or clotting disorder. HEART: Denies any chest pains, palpitations, paroxysmal dyspnea, orthopnea. PULMONARY: Denies chronic cough, dyspnea and wheezing. GASTROINTESTINAL: Patient with chronic abdominal pain on high-dose of narcotics , chronic retching, nausea after gastric bypass, constipation. GENITOURINARY: Denies dysuria, frequency, hematuria and nocturia. ENDOCRINE: Denies polydipsia, polyphagia, polyuria, heat or cold intolerance. INFECTIOUS: Denies any recent upper respiratory tract infection, UTI, need for use of antibiotics. NUTRITION: Patient with chronic problems with eating, right now only able to tolerate pured food. PHYSICAL EXAMINATION: VITAL SIGNS: Please see below. GENERAL APPEARANCE: Patient seen at bedside, appears comfortable. Awake, alert, oriented. HEENT: Normocephalic, atraumatic. Pale palpebral conjunctivae. Anicteric sclerae. Lips moist. CHEST: No chest wall abnormalities. Normal respiratory motion/effort. NECK: Supple. No thyromegaly. No lymphadenopathies. LUNGS: Lung sounds are clear to auscultation bilaterally. No wheezing appreciated. HEART: No chest wall abnormalities. Heart rate and rhythm are regular with no murmurs. ABDOMEN: Abdomen is mildly distended, slightly tympanitic to percussion, soft, slightly rounded. No hepatosplenomegaly. No umbilical or groin herniations, nondistended. No noticeable rebound or guarding. Minimal vague tenderness at the midline and periumbilical area. No rebound tenderness. No masses appreciated. SKIN: Warm and dry. EXTREMITIES: Extremities have no deformities. No edema identified. NEUROLOGICAL: Awake, alert, oriented. ANCILLARIES: . LABORATORY DATA: Please see below. MICROBIOLOGY: Please see below. IMAGING: CT scan abdomen and pelvis 1. The patient is status-post cholecystectomy and gastric bypass. 2. The patient is status-post hysterectomy. 3. There are multiple dilated loops of small intestine. This may represent ileus or early or partial small bowel obstruction. IMPRESSION AND PLAN: Ileus versus partial small bowel obstruction Chronic abdominal pain Malnutrition Dehydration Elevated lactic acid on admission Patient is already feeling better by the time that I saw her. She refused nasogastric tube earlier at this time she probably don't need it anymore now that she is getting better. She has multiple derangements from the vomiting including elevated lactic acid, hypokalemia and clinically dehydration. She is placed on IV fluid hydration for now. She has a compounding problem of high dose of narcotics that she is taken every day. For now we'll manage this with IV Dilaudid stopping all her other narcotic pain medications. Possibly this can be a side effect of her chronic pain medications. She does not have any clinical signs of peritonitis or signs of threatened bowel in her CT scan of the abdomen despite the lactic acidosis. Her abdominal exam is fairly benign. She did have some mild elevation of her lipase which could be from the distention of her biliopancreatic limb. He will follow this from now. I do not see any urgent need for surgical intervention at this point. I will perform serial abdominal exam and possibly another x-ray tomorrow. Vital Signs Vital Signs Date Time Temp Pulse Resp B/P (MAP) Pulse Ox O2 Delivery O2 Flow Rate FiO2 08/22/17 14:00 97.9 76 18 119/63 (81) 97 Room Air I&Os I&O- Last 24 Hours up to 6 AM 08/23/17 06:00 Intake Total 980 ml Output Total 0 ml Balance 980 ml Laboratory Data Labs 24H Laboratory Tests 2 08/21/17 19:58: Lactic Acid Followup at 4 Hours 2.5*H 08/22/17 06:20: Immature Granulocyte % (Auto) 0.5H, White Blood Count 6.1, Red Blood Count 3.29L , Hemoglobin 7.0#L, Hematocrit 23.6L, Mean Corpuscular Volume 71.7L, Mean Corpuscular Hemoglobin 21.3L, Mean Corpuscular Hemoglobin Concent 29.7L, Red Cell Distribution Width 17.9H, Platelet Count 262, Neutrophils (%) (Auto) 72.2H , Lymphocytes (%) (Auto) 17.8L, Monocytes (%) (Auto) 8.3H, Eosinophils (%) (Auto ) 0.7, Basophils (%) (Auto) 0.5, Neutrophils # (Auto) 4.4, Lymphocytes # (Auto) 1.1L, Monocytes # (Auto) 0.5, Eosinophils # (Auto) 0.0, Basophils # (Auto) 0.0, Immature Granulocyte # (Auto) 0.0, Nucleated Red Blood Cells % (auto) 0.0, Anion Gap 8, Glomerular Filtration Rate > 60.0, Blood Urea Nitrogen 4L, Creatinine 0.49L, Sodium Level 146H, Potassium Level 3.3L, Chloride Level 113H, Carbon Dioxide Level 25, Calcium Level 8.2L, Lipase 99 CBC/BMP Laboratory Tests 08/22/17 06:20 Red Blood Count 3.29 L, Mean Corpuscular Volume 71.7 L, Mean Corpuscular Hemoglobin 21.3 L, Mean Corpuscular Hemoglobin Concent 29.7 L, Red Cell Distribution Width 17.9 H, Neutrophils (%) (Auto) 72.2 H, Lymphocytes (%) (Auto ) 17.8 L, Monocytes (%) (Auto) 8.3 H, Eosinophils (%) (Auto) 0.7, Basophils (%) (Auto) 0.5, Neutrophils # (Auto) 4.4, Lymphocytes # (Auto) 1.1 L, Monocytes # ( Auto) 0.5, Eosinophils # (Auto) 0.0, Basophils # (Auto) 0.0, Calcium Level 8.2 L Microbiology Microbiology 08/21/17 Blood Culture, Received Pending 08/21/17 Blood Culture, Received Pending Home Medications Scheduled Fentanyl (Fentanyl) 50 Mcg Tdsy, 50 MCG TD Q3RD, (Reported) PT DOES NOT HAVE A PATCH ON CURRENTLY Fluoxetine HCl (Fluoxetine HCl) 20 Mg/5 Ml Liqd, 20 MG PO DAILY, (Reported) Levetiracetam (Keppra) 500 Mg Tab, 500 MG PO BID, (Reported) PT HAS NOT TAKEN IN 2 WEEKS Zolpidem Tartrate (Zolpidem Tartrate) 10 Mg Tab, 10 MG PO QHS, (Reported) Scheduled PRN (Oxycodone HCl) 5 Mg/5 Ml Martha, 10 MG PO Q6H PRN for PAIN, (Reported) PT USES LIQUID IF SHE CAN'T KEEP THE TABLETS DOWN Carisoprodol (Carisoprodol) 350 Mg Tab, 350 MG PO TID PRN for MUSCLE SPASMS, ( Reported) Lorazepam (Lorazepam) 1 Mg Tab, 1 MG PO Q6H PRN for ANXIETY, (Reported) Ondansetron (Ondansetron Odt) 8 Mg Tab, 8 MG PO Q8H PRN for NAUSEA, (Reported) Oxycodone Hcl (Oxycodone HCl) 15 Mg Tab, 15 MG PO Q6H PRN for PAIN, (Reported) Promethazine HCl (Phenergan) 25 Mg Sup, 25 MG NE for NAUSEA, (Reported) Allergies Coded Allergies: Butorphanol (Verified Allergy, Severe, HIVES/RESP. PROBLEMS (PERCOCET AND TYL#3 OK), 01/21/13) Sulfa Drugs (Verified Allergy, Severe, SWELLING,HIVES,RESP. PROBLEMS, ) Tomato (Verified Allergy, Severe, HIVES/RESP. PROBLEMS, 01/21/13) AMANDA JAMISON MD Aug 22, 2017 15:10
[2017-08-22 22:00] VITALS: BP 114/70
[2017-08-23] VITALS (14 sets, daily range): BP systolic 99–162; BP diastolic 65–82
[2017-08-23] MEDS: KCL 20MEQ IN D5/0.45NS 1000ML 1,000 ML IV SCH (03:49)
[2017-08-23] MEDS: HYDROmorphone HCL 1 MG/ML SYRINGE (J1170) IV PRN ×2 (03:50→08:51)
[2017-08-23] MEDS: PROMETHAZINE INJ 25 MG/ML VIAL (J2550) IV PRN (03:50)
[2017-08-23 06:33] LABS: BASO % 0.7 % (0.0-1.0); EOS # 0.1 10^3/uL (0.0-0.50); EOS % 3.7 % (0.0-3.0); IMMATURE GRANULOCYTE % 0.3 % (0-0); LYMPH % 34.9 % (24.0-44.0); MEAN CORPUSCULAR HGB CONC 28.8 g/dl (32.0-36.5); MEAN CORPUSCULAR VOLUME 73.1 fl (80.0-96.0); MONO # 0.3 10^3/uL (0.0-0.8); MONO % 10.8 % (0.0-5.0); NEUTROPHILS # 1.5 10^3/uL (1.8-7.7); NEUTROPHILS % 49.6 % (36.0-66.0); PLATELET COUNT, AUTOMATED 235 10^3/uL (150-450)
[2017-08-23 06:47] LABS: ANION GAP 8 MEQ/L (8-16); BLOOD UREA NITROGEN 2 MG/DL (7-18); CALCIUM LEVEL 7.8 MG/DL (8.5-10.1); CARBON DIOXIDE LEVEL 25 MEQ/L (21-32); CHLORIDE LEVEL 113 MEQ/L (98-107); CREATININE FOR GFR 0.57 MG/DL (0.55-1.02); GLOMERULAR FILTRATION RATE > 60.0 (>60); GLUCOSE, FASTING 99 MG/DL (70-105); PERCENT SATURATION 2.9 % (13.2-45.0); POTASSIUM SERUM 3.5 MEQ/L (3.5-5.1); SODIUM LEVEL 146 MEQ/L (136-145); TOTAL IRON BINDING CAPACITY 307 UG/DL (250-450)
[2017-08-23] MEDS ORDERED: FUROSEMIDE 40 MG/4 ML VIAL (J1940) As Ordered ONE (06:56)
[2017-08-23] MEDS ORDERED: FUROSEMIDE 40 MG/4 ML VIAL (J1940) IV ONE (07:00)
[2017-08-23] MEDS: METOCLOPRAMIDE INJ 10MG/2ML VIAL (J2765) IV PRN (08:50)
[2017-08-23] MEDS: PANTOPRAZOLE 40MG INJ (PROTONIX) (C9113) IV SCH (08:51)
[2017-08-23] MEDS: levETIRAcetam 250MG TABLET (KEPPRA) PO SCH ×2 (08:57→21:02)
[2017-08-23] MEDS: SENOKOT S TAB PO SCH ×2 (08:57→21:00)
[2017-08-23] MEDS: SUCRALFATE 1 GM TAB PO SCH ×4 (08:58→21:02)
[2017-08-23] MEDS: ENOXAPARIN 40 MG/0.4 ML SYRINGE (J1650) SC SCH (08:58)
[2017-08-23] MEDS: FLUoxetine 20 MG CAP PO SCH (08:58)
[2017-08-23 10:57] LABS: VITAMIN B12 LEVEL 199 PG/ML (247-911)
[2017-08-23] MEDS: fentaNYL 50 MCG/HR PATCH TOP SCH (12:38)
[2017-08-23] MEDS ORDERED: oxyCODONE 5MG TAB PO PRN (14:15)
[2017-08-23] MEDS: FENTANYL REMOVAL DOCUMENTATION MISC XX SCH (16:53)
[2017-08-23] MEDS ORDERED: CHARCOAL ACTIVATED LIQUID 25 GM/120 ML BTL PO STA (17:07)
[2017-08-23] MEDS ORDERED: NALOXONE INJ 0.4 MG/1 ML VIAL (J2310) IV PRN (17:15)
[2017-08-23] MEDS: NS 1,000 ML IV SCH (17:30)
[2017-08-23 18:32] LABS: ANION GAP 11 MEQ/L (8-16); BLOOD UREA NITROGEN 3 MG/DL (7-18); CARBON DIOXIDE LEVEL 27 MEQ/L (21-32); CHLORIDE LEVEL 106 MEQ/L (98-107); CREATININE FOR GFR 0.86 MG/DL (0.55-1.02); GLUCOSE, FASTING 120 MG/DL (70-105); POTASSIUM SERUM 3.5 MEQ/L (3.5-5.1); SODIUM LEVEL 144 MEQ/L (136-145)
[2017-08-23 18:34] LABS: GLOMERULAR FILTRATION RATE > 60.0 (>60)
--- NOTE | 2017-08-23 18:36 | IPN ---
DATE: 08/23/2017 RAPID ASSESSMENT NOTE TIME PATIENT WAS SEEN: Around 5:07 p.m. Patient is a 37-year-old female who presented to hospital yesterday, 08/22/2017, for small-bowel obstruction. Has been under the care of general surgery and Dr. Robertson. This afternoon before 5 p.m., patient's took oxycodone with acetaminophen from home and also Ambien from home, and patient with a long-term history of depression took 14 pills of Ambien and also a whole bottle of oxycodone/acetaminophen with at least 50 mL within the bottle. Patient was found to be confused and walking in the hallway. Therefore, rapid assessment was called due to acute overdose and possible suicidal attempt. Rapid assessment was called , and resident doctor and also Dr. Simmons presented to the room. On physical examination, patient was alert and awake and was able to converse. Did not show any respiratory depression. Therefore, activated charcoal was immediately ordered and also confirmed with Dr. Robertson that patient could take it. Therefore, activate charcoal was given to patient, 3 amps, and patient tolerated it well. In addition, poison control was contacted and suggested supportive therapy. EKG for now to check for baseline, making sure there is no QTC prolongation as well as agreeing with activated charcoal and recommended to order acetaminophen and Tylenol levels for now and give Narcan for any signs of respiratory depression. In addition, patient's brought in a medical order for life-sustaining treatment (MOLST) form. On the MOLST form it stated that patient was comfort measures only; however, given that patient was having a suicidal attempt, will assess patient's capacity once the medication has cleared off her system. In addition, Dr. Robertson has asked Dr. Simmons to transfer this patient to medicine service. Otherwise will continue to monitor patient in intensive care unit (ICU). Patient has been placed on continuous end-tidal CO2 monitoring for any signs of respiratory depression and will also trend the Tylenol level and also salicylate level. If this continues to increase, possibly will start the acetylcysteine for acetaminophen intoxication. Otherwise, will also trend daily liver profile and will possibly consult psychiatry once patient has been optimized for her medical issues. Patient has been discussed with attending doctor. Dr. Simmons. My preceptor for this patient encounter was Dr. Christel Simmons. The preceptor was physically present in the building during the encounter and was fully available as needed. All aspects of the patient interview, examination, medical decision making process, and medical care plan development were reviewed and approved by the preceptor. The preceptor is aware and concurs with the plan as stated in the body of this note and will attest to such by his/her co-signature. HAILEY
[2017-08-23 19:10] LABS: ALKALINE PHOSPHATASE 122 U/L (45-117); ALT/SGPT 46 U/L (12-78); AST/SGOT 38 U/L (7-37); BILIRUBIN,DIRECT < 0.1 MG/DL (0.0-0.2); BILIRUBIN,TOTAL 0.2 MG/DL (0.2-1.0); TOTAL PROTEIN 5.6 GM/DL (6.4-8.2)
[2017-08-23 19:11] LABS: ALBUMIN 3.2 GM/DL (3.2-5.2); ALBUMIN/GLOBULIN RATIO 1.33 (1.00-1.93)
[2017-08-24] VITALS: BP 120/62
[2017-08-24] MEDS: NS 1,000 ML IV SCH (02:00)
[2017-08-24 03:18] VITALS: BP 122/65
[2017-08-24 04:20] LABS: BASO % 0.3 % (0.0-1.0); LYMPH # 0.8 10^3/uL (1.5-4.5); LYMPH % 21.2 % (24.0-44.0); MEAN CORPUSCULAR HEMOGLOBIN 20.8 pg (27.0-33.0); MEAN CORPUSCULAR HGB CONC 28.5 g/dl (32.0-36.5); MEAN CORPUSCULAR VOLUME 73.2 fl (80.0-96.0); MONO # 0.5 10^3/uL (0.0-0.8); MONO % 12.4 % (0.0-5.0); NEUTROPHILS # 2.5 10^3/uL (1.8-7.7); NEUTROPHILS % 65.1 % (36.0-66.0); PLATELET COUNT, AUTOMATED 302 10^3/uL (150-450); RED CELL DISTRIBUTION WIDTH 17.4 % (11.5-14.5); WHITE BLOOD COUNT 3.9 10^3/uL (4.0-10.0)
[2017-08-24 04:43] LABS: ALKALINE PHOSPHATASE 129 U/L (45-117); ALT/SGPT 40 U/L (12-78); AST/SGOT 28 U/L (7-37); BILIRUBIN,DIRECT 0.1 MG/DL (0.0-0.2); BLOOD UREA NITROGEN 2 MG/DL (7-18); CALCIUM LEVEL 7.8 MG/DL (8.5-10.1); CHLORIDE LEVEL 109 MEQ/L (98-107); CREATININE FOR GFR 0.72 MG/DL (0.55-1.02); GLUCOSE, FASTING 101 MG/DL (70-105); POTASSIUM SERUM 3.4 MEQ/L (3.5-5.1); SODIUM LEVEL 146 MEQ/L (136-145); TOTAL PROTEIN 5.7 GM/DL (6.4-8.2)
[2017-08-24 05:21] LABS: BILIRUBIN,TOTAL 0.3 MG/DL (0.2-1.0)
[2017-08-24 05:24] LABS: ANION GAP 9 MEQ/L (8-16); CARBON DIOXIDE LEVEL 28 MEQ/L (21-32)
[2017-08-24 05:25] LABS: ALBUMIN 3.3 GM/DL (3.2-5.2); ALBUMIN/GLOBULIN RATIO 1.38 (1.00-1.93)
[2017-08-24 06:00] VITALS: BP 119/61
--- NOTE | 2017-08-24 07:05 | ECGEPIP ---
Stationary ECG Study [facility] Test Date: 2017-08-23 Pat Name: NI RICHMOND Department: Room: [place] [address] Gender: F [employer] Specialist: AG : [id number] Requested By: TRISH BETTS Order Number: [id number] Reading MD: Guzman Patino Measurements Intervals Fouke Rate: 109 P: 57 MD: 119 QRS: 62 QRSD: 80 T: 44 QT: 349 QTc: 470 Interpretive Statements SINUS TACHYCARDIA WITH SHORT MD INTERVAL NONSPECIFIC T-WAVE ABNORMALITY Electronically Signed On 08-24-2017 7:04:54 EDT by Guzman Patino
[2017-08-24] MEDS ORDERED: NS 0.45% 1,000 ML IV SCH (07:45)
[2017-08-24] MEDS ORDERED: POTASSIUM CHLORIDE 10 MEQ SR TABLET PO ONE (08:00)
[2017-08-24] MEDS: CYANOCOBALAMIN 500 MCG TAB PO SCH (09:38)
[2017-08-24] MEDS: PANTOPRAZOLE 40MG INJ (PROTONIX) (C9113) IV SCH (09:38)
[2017-08-24] MEDS: levETIRAcetam 250MG TABLET (KEPPRA) PO SCH ×2 (09:38→20:03)
[2017-08-24] MEDS: FERROUS SULFATE 325MG TAB PO SCH ×3 (09:38→20:03)
[2017-08-24] MEDS: THIAMINE 100 MG TAB PO SCH (09:39)
[2017-08-24] MEDS: ENOXAPARIN 40 MG/0.4 ML SYRINGE (J1650) SC SCH (09:39)
[2017-08-24] MEDS: SENOKOT S TAB PO SCH ×2 (09:39→20:03)
[2017-08-24] MEDS: SUCRALFATE 1 GM TAB PO SCH ×4 (09:39→20:03)
[2017-08-24] MEDS: FLUoxetine 20 MG CAP PO SCH (09:39)
[2017-08-24] MEDS ORDERED: fentaNYL 50 MCG/HR PATCH TOP SCH (11:00)
[2017-08-24] MEDS ORDERED: MORPHINE 10MG/0.5ML ORAL CONCENTRATE SOLUTION U/D SL PRN (11:00)
[2017-08-24] MEDS ORDERED: FENTANYL REMOVAL DOCUMENTATION MISC XX SCH (11:00)
[2017-08-24] MEDS: PROMETHAZINE INJ 25 MG/ML VIAL (J2550) IV PRN (11:17)
[2017-08-24] MEDS: ONDANSETRON 4MG/2ML VIAL (J2405) IV PRN (11:17)
[2017-08-24] MEDS: fentaNYL 50 MCG/HR PATCH TOP SCH (11:19)
[2017-08-24] MEDS: MORPHINE SULFATE ORAL SOLN 10 MG/5 ML UD PO PRN ×2 (11:25→17:51)
[2017-08-24] MEDS ORDERED: GASTROGRAFIN SOLUTION 30ML PO ONE (11:45)
[2017-08-24] MEDS ORDERED: GASTROGRAFIN SOLUTION 30ML (Q9963) PO ONE (12:15)
[2017-08-24] MEDS: METOCLOPRAMIDE INJ 10MG/2ML VIAL (J2765) IV PRN ×2 (13:01→19:03)
[2017-08-24] MEDS: LORazepam 1 MG TAB PO PRN (13:01)
[2017-08-24] MEDS ORDERED: ISOVUE-370 76% 100ML VIAL (Q9967) As Ordered ONE (13:57)
[2017-08-24 14:00] VITALS: BP 120/58
--- NOTE | 2017-08-24 16:30 | IPNPDOC ---
Subjective General Date/Time Seen The patient was seen on 08/24/17 at 16:24. Subject Chief Complaint/History The patient is a 37-year-old female admitted with a reason for visit of Small Bowel Obstruction. Patient seen at the bed side, complaining of abdominal pain, nausea. She denies taking any of her oxycodone yesterday, admits to taking 2 tablets of ambien. Current Medications Current Medications Current Medications Acetaminophen (Tylenol Tab) 650 mg Q4HP PRN PO MILD PAIN or TEMP > 101; Start 08/21/17 at 18:15; Stop 09/20/17 at 18:14 Bisacodyl (Dulcolax Suppository) 10 mg DAILYPRN PRN IN CONSTIPATION; Start 08/21/17 at 18:15; Stop 09/20/17 at 18:14 Charcoal (Actidose-Aqua) 67 gm STAT STAT PO Last administered on 08/23/17 17: 24; Start 08/23/17 at 17:07; Stop 08/23/17 at 17:09; Status DC Cyanocobalamin (Vitamin B12) 1,000 mcg DAILY PO Last administered on 08/24/17 09:38; Start 08/24/17 at 09:00; Stop 09/23/17 at 08:59 Enoxaparin Sodium (Lovenox) 40 mg DAILY SC Last administered on 08/24/17 09:39 ; Start 08/22/17 at 09:00; Stop 08/27/17 at 08:59 Fentanyl (Duragesic) 50 mcg Q72H TOP Last administered on 08/24/17 11:19; Start 08/23/17 at 13:00; Stop 08/30/17 at 12:59 Fentanyl (Duragesic) 50 mcg Q72H TOP ; Start 08/24/17 at 11:00; Stop 08/24/17 at 11:04; Status DC Ferrous Sulfate (Ferrous Sulfate) 325 mg TID PO Last administered on 08/24/17 09:38; Start 08/24/17 at 09:00; Stop 09/23/17 at 08:59 Fluoxetine HCl (PROzac) 20 mg DAILY PO Last administered on 08/24/17 09:39; Start 08/22/17 at 09:00; Stop 09/21/17 at 08:59 Home Med (Med Rec Complete!) ASDIRECTED XX ; Start 08/21/17 at 18:45; Stop 08/21/17 at 18:45; Status DC Hydromorphone HCl (Dilaudid) 1 mg Q30M PRN IV SEVERE PAIN (PS 8-10) Last administered on 08/21/17 20:30; Start 08/21/17 at 16:30; Stop 08/21/17 at 20:30 ; Status DC Hydromorphone HCl (Dilaudid) 1 mg Q3HP PRN IV MILD PAIN (PS 1-4) Last administered on 08/23/17 08:51; Start 08/21/17 at 18:15; Stop 08/23/17 at 12:00 ; Status DC Hydromorphone HCl (Dilaudid) 1.6 mg Q3HP PRN IV MODERATE/SEVERE PAIN (PS 5-10) ; Start 08/21/17 at 18:15; Stop 08/23/17 at 12:00; Status DC Lactated Ringer's 1,000 ml @ 125 mls/hr Q8H IV Last administered on 08/22/17 02:11; Start 08/21/17 at 18:06; Stop 08/22/17 at 08:29; Status DC Levetiracetam (Keppra) 500 mg BID PO Last administered on 08/24/17 09:38; Start 08/21/17 at 21:00; Stop 09/20/17 at 20:59 Lorazepam (Ativan) 1 mg Q6HP PRN PO anxiety Last administered on 08/24/17 13: 01; Start 08/21/17 at 18:15; Stop 08/28/17 at 18:14 Magnesium Hydroxide (Milk Of Magnesia) 30 ml DAILYPRN PRN PO CONSTIPATION; Start 08/21/17 at 18:15; Stop 09/20/17 at 18:14 Metoclopramide HCl (REGLAN INJection) 10 mg Q6HP PRN IV NAUSEA OR VOMITING Last administered on 08/24/17 13:01; Start 08/21/17 at 18:15; Stop 09/20/17 at 18:14 Morphine Sulfate (Morphine Sulfate Inj) 4 mg Q30M PRN IV SEVERE PAIN (PS 8-10) Last administered on 08/21/17 15:26; Start 08/21/17 at 14:30; Stop 08/21/17 at 15:27; Status DC Morphine Sulfate (Morphine Sulfate Oral Solution) 10 mg Q6HP PRN PO PAIN Last administered on 08/24/17 11:25; Start 08/24/17 at 11:15; Stop 08/31/17 at 11: 14 Morphine Sulfate (Roxanol) 10 mg Q6HP PRN SL PAIN; Start 08/24/17 at 11:00; Stop 08/24/17 at 11:05; Status DC Naloxone HCl (Narcan) 0.1 mg Q30MP PRN IV RESP. RATE < 10; Start 08/23/17 at 17 :15; Stop 09/22/17 at 17:14 Non-Formulary Medication ( See Comment Field Below ) SEE COMMENTS SECTION ASDIRECTED XX Last administered on 08/23/17 16:53; Start 08/23/17 at 13:00; Stop 08/30/17 at 12:59 Non-Formulary Medication ( See Comment Field Below ) SEE COMMENTS SECTION ASDIRECTED XX ; Start 08/24/17 at 11:00; Stop 08/24/17 at 11:04; Status DC Ondansetron HCl (ZOFRAN INJection) 4 mg Q6HP PRN IV NAUSEA OR VOMITING Last administered on 08/24/17 11:17; Start 08/21/17 at 18:15; Stop 09/20/17 at 18:14 Oxycodone HCl (Roxicodone, Oxyir) 15 mg Q6HP PRN PO SEVERE PAIN (PS 8-10) Last administered on 08/23/17 14:20; Start 08/23/17 at 14:15; Stop 08/23/17 at 17:56 ; Status DC Pantoprazole Sodium (Protonix) 40 mg DAILY IV Last administered on 08/24/17 09 :38; Start 08/22/17 at 09:00; Stop 09/21/17 at 08:59 Potassium Chloride/Dextrose/ Sod Cl 1,000 ml @ 150 mls/hr Q6H40M IV Last administered on 08/23/17 03:49; Start 08/22/17 at 08:30; Stop 08/23/17 at 06:54 ; Status DC Promethazine HCl (PHENERGAN INJection) 12.5 mg Q6HP PRN IV NAUSEA Last administered on 08/24/17 11:17; Start 08/21/17 at 18:15; Stop 09/20/17 at 18:14 Senna/Docusate Sodium (Senokot S) 1 tab BID PO Last administered on 08/24/17 09:39; Start 08/21/17 at 21:00; Stop 09/20/17 at 20:59 Sodium Chloride 1,000 ml @ 100 mls/hr Q10H IV Last administered on 08/24/17 09:41; Start 08/24/17 at 07:45; Stop 08/24/17 at 17:44 Sodium Chloride 1,000 ml @ 120 mls/hr Q8H20M IV Last administered on 02:00; Start 08/23/17 at 17:30; Stop 08/24/17 at 07:45; Status DC Sucralfate (Carafate) 1 gm ACHS PO Last administered on 08/24/17 11:17; Start 08/21/17 at 21:00; Stop 09/20/17 at 20:59 Thiamine HCl (Thiamine HCl) 100 mg DAILY PO Last administered on 08/24/17 09: 39; Start 08/24/17 at 09:00; Stop 09/23/17 at 08:59 Allergies Coded Allergies: Butorphanol (Verified Allergy, Severe, HIVES/RESP. PROBLEMS (PERCOCET AND TYL#3 OK), 01/21/13) Sulfa Drugs (Verified Allergy, Severe, SWELLING,HIVES,RESP. PROBLEMS, ) Tomato (Verified Allergy, Severe, HIVES/RESP. PROBLEMS, 01/21/13) Objective Physical Examination Examination GENERAL APPEARANCE:Patient seen, laying in bed, awake, alert, and oriented. Comfortable, in no acute distress. SKIN: Warm and moist. HEENT: Normocephalic, atraumatic. Peters palpebral conjunctiva, anicteric sclerae. Lips and mucosa appear moist. NECK: Supple, no thyromegaly. No obvious jugular venous distention. LUNGS: Clear to auscultation bilaterally. No wheezing appreciated. HEART: No chest wall abnormalities. Regular rate and rhythm with no murmurs appreciated. ABDOMEN: Abdomen is mild obese, soft, minimally distended. mild tenderness at epigastric area.. EXTREMITIES: Extremities have no deformities. No edema identified. Vital Signs Vital Signs Date Time Temp Pulse Resp B/P (MAP) Pulse Ox O2 Delivery O2 Flow Rate FiO2 08/24/17 14:00 99.3 104 17 120/58 (78) 100 Room Air I&Os I&O- Last 24 Hours up to 6 AM 08/25/17 06:00 Intake Total 1180 ml Output Total 0 ml Balance 1180 ml Laboratory Data Labs 24H Laboratory Tests 2 08/23/17 16:54: Bedside Glucose (Misc Panel) 105 08/23/17 17:49: Anion Gap 11, Glomerular Filtration Rate > 60.0, Blood Urea Nitrogen 3L, Creatinine 0.86#, Sodium Level 144, Potassium Level 3.5, Chloride Level 106, Carbon Dioxide Level 27, Calcium Level 8.0L, Aspartate Amino Transf (AST/SGOT) 38H, Alanine Aminotransferase (ALT/SGPT) 46, Alkaline Phosphatase 122H, Total Bilirubin 0.2, Direct Bilirubin < 0.1, Total Protein 5.6#L, Albumin 3.2, Albumin /Globulin Ratio 1.33, Salicylates Level < 1.7L, Acetaminophen Level 3.7L 08/23/17 22:00: Salicylates Level < 1.7L, Acetaminophen Level 2.4L 08/24/17 03:56: Anion Gap 9, Calcium Level 7.8L, Aspartate Amino Transf (AST/SGOT) 28, Alanine Aminotransferase (ALT/SGPT) 40, Alkaline Phosphatase 129H, Total Bilirubin 0.3, Direct Bilirubin 0.1, Total Protein 5.7L, Albumin 3.3, Albumin/Globulin Ratio 1.38, Salicylates Level < 1.7L, Acetaminophen Level 3.9L, Immature Granulocyte % (Auto) 0.0, White Blood Count 3.9L, Red Blood Count 3.55L, Hemoglobin 7.4L, Hematocrit 26.0L, Mean Corpuscular Volume 73.2L, Mean Corpuscular Hemoglobin 20.8L, Mean Corpuscular Hemoglobin Concent 28.5L, Red Cell Distribution Width 17.4H, Platelet Count 302, Neutrophils (%) (Auto) 65.1, Lymphocytes (%) (Auto) 21.2L, Monocytes (%) (Auto) 12.4H, Eosinophils (%) (Auto) 1.0, Basophils (%) ( Auto) 0.3, Neutrophils # (Auto) 2.5, Lymphocytes # (Auto) 0.8L, Monocytes # ( Auto) 0.5, Eosinophils # (Auto) 0.0, Basophils # (Auto) 0.0, Immature Granulocyte # (Auto) 0.0, Nucleated Red Blood Cells % (auto) 0.0 08/24/17 11:28: Lactic Acid Level 1.9, Lactate Dehydrogenase 196 CBC/BMP Laboratory Tests 08/23/17 17:49 Calcium Level 8.0 L 08/24/17 03:56 Red Blood Count 3.55 L, Mean Corpuscular Volume 73.2 L, Mean Corpuscular Hemoglobin 20.8 L, Mean Corpuscular Hemoglobin Concent 28.5 L, Red Cell Distribution Width 17.4 H, Neutrophils (%) (Auto) 65.1, Lymphocytes (%) (Auto) 21.2 L, Monocytes (%) (Auto) 12.4 H, Eosinophils (%) (Auto) 1.0, Basophils (%) ( Auto) 0.3, Neutrophils # (Auto) 2.5, Lymphocytes # (Auto) 0.8 L, Monocytes # ( Auto) 0.5, Eosinophils # (Auto) 0.0, Basophils # (Auto) 0.0 Microbiology Microbiology 08/21/17 Blood Culture - Preliminary, Resulted No Growth after 48 hours. All Specime... 08/21/17 Blood Culture - Preliminary, Resulted No Growth after 48 hours. All Specime... Impression She was admitted for exacerbation of her chronic nausea and vomiting for concerns for early partial sbo, though she quickly got better and by the next morning had most of her abdominal distention improved and to me is back to her baseline level. Yesterday I thought she looks a bit anxious and was wondering if her body is starting to get some withdrawal from the fentanyl and so I resumed her fentanyl patch. Then the events yesterday happened when she became agitated and real concerns of her overdosing on her medications. She is defiant that she took any extra oxycodone. I think she needs psych consult to verify her state of mind. From surgical point of view, I see no ongoing issues at this point. She can resume her soft diet. Plan / VTE VTE Prophylaxis Ordered?: Yes AMANDA JAMISON MD Aug 24, 2017 16:30
--- NOTE | 2017-08-24 17:20 | IPNPDOC ---
Text Note Date of Service The patient was seen on 08/24/17. NOTE Subjective: Patient initially had abdominal pain is morning however once she was started on her morphine, her pain improved, and she has refused a CAT scan of the abdomen and pelvis, as well as need for NG tube. Objective: Vitals: (see below) General: No acute distress, laying comfortably in bed. HEENT: Moist mucous membranes. Neck: No JVD or lymphadenopathy Cardiac: RRR, No murmurs Pulm: Clear to auscultation b/l. No wheezing, rhonchi Abd: Mild TTP LLQ. No rebound/guarding/rigidity. ND + BS Ext: No edema or cyanosis Labs (see below) Images: CT abdomen pelvis 08/21/17 1. The patient is status-post cholecystectomy and gastric bypass. 2. The patient is status-post hysterectomy. 3. There are multiple dilated loops of small intestine. This may represent ileus or early or partial small bowel obstruction. Assessment/Plan 1. Ileus versus partial small bowel obstruction - patient refused NG tube. She is telling a diet now. She is also refusing a repeat CT abdomen pelvis for her recurrent abdominal pain this morning. Her pain is better controlled. 2. Chronic abdominal pain on chronic opioid therapy will need outpatient follow- up 3.? Suicide attempt- it appears that the patient may have tried to overdose on her oxycodone and Ambien- Dr. Thomas has been consulted. 4. Dehydration/malnutrition- started on IV fluids 5. Elevated lactic acid on admission likely secondary to dehydration improved. 6. Melanotic stools/coffee ground emesis- Dr. Tom on board, with recommendations for observation. Hemoglobin stable at this time. Started on ferrous sulfate for iron deficiency anemia. Will need close outpatient follow- up and may need EGD/colonoscopy outpatient. DVT prophy: SCDs VS,Fishbone, I+O VS, Fishbone, I+O Laboratory Tests 08/23/17 17:49 Calcium Level 8.0 L 08/24/17 03:56 Red Blood Count 3.55 L, Mean Corpuscular Volume 73.2 L, Mean Corpuscular Hemoglobin 20.8 L, Mean Corpuscular Hemoglobin Concent 28.5 L, Red Cell Distribution Width 17.4 H, Neutrophils (%) (Auto) 65.1, Lymphocytes (%) (Auto) 21.2 L, Monocytes (%) (Auto) 12.4 H, Eosinophils (%) (Auto) 1.0, Basophils (%) ( Auto) 0.3, Neutrophils # (Auto) 2.5, Lymphocytes # (Auto) 0.8 L, Monocytes # ( Auto) 0.5, Eosinophils # (Auto) 0.0, Basophils # (Auto) 0.0 Vital Signs Date Time Temp Pulse Resp B/P (MAP) Pulse Ox O2 Delivery O2 Flow Rate FiO2 08/24/17 14:00 99.3 104 17 120/58 (78) 100 Room Air I&O- Last 24 Hours up to 6 AM 08/25/17 06:00 Intake Total 1180 ml Output Total 0 ml Balance 1180 ml CHRISTEN ESCOBAR MD Aug 24, 2017 17:20
[2017-08-24] MEDS: ACETAMINOPHEN TAB 650MG DOSE (2X325MG) PO PRN (20:03)
[2017-08-24 22:00] VITALS: BP 112/62
[2017-08-25] MEDS: MORPHINE SULFATE ORAL SOLN 10 MG/5 ML UD PO PRN ×4 (00:06→20:10)
[2017-08-25] MEDS: PROMETHAZINE INJ 25 MG/ML VIAL (J2550) IV PRN (00:06)
[2017-08-25 06:00] VITALS: BP 101/54
[2017-08-25] MEDS: ONDANSETRON 4MG/2ML VIAL (J2405) IV PRN ×2 (06:10→18:31)
[2017-08-25 06:27] LABS: BASO % 0.9 % (0.0-1.0); EOS # 0.2 10^3/uL (0.0-0.50); EOS % 4.7 % (0.0-3.0); IMMATURE GRANULOCYTE % 0.3 % (0-0); LYMPH # 1.2 10^3/uL (1.5-4.5); LYMPH % 35.3 % (24.0-44.0); MEAN CORPUSCULAR HEMOGLOBIN 20.9 pg (27.0-33.0); MEAN CORPUSCULAR HGB CONC 29.1 g/dl (32.0-36.5); MEAN CORPUSCULAR VOLUME 71.8 fl (80.0-96.0); MONO # 0.4 10^3/uL (0.0-0.8); MONO % 11.8 % (0.0-5.0); NEUTROPHILS # 1.6 10^3/uL (1.8-7.7); PLATELET COUNT, AUTOMATED 276 10^3/uL (150-450); RED CELL DISTRIBUTION WIDTH 17.6 % (11.5-14.5); WHITE BLOOD COUNT 3.4 10^3/uL (4.0-10.0)
[2017-08-25 06:53] LABS: ALBUMIN 2.8 GM/DL (3.2-5.2); ALBUMIN/GLOBULIN RATIO 1.08 (1.00-1.93); ALKALINE PHOSPHATASE 115 U/L (45-117); ALT/SGPT 30 U/L (12-78); ANION GAP 9 MEQ/L (8-16); AST/SGOT 18 U/L (7-37); BILIRUBIN,DIRECT 0.1 MG/DL (0.0-0.2); BILIRUBIN,TOTAL 0.3 MG/DL (0.2-1.0); BLOOD UREA NITROGEN 2 MG/DL (7-18); CALCIUM LEVEL 7.8 MG/DL (8.5-10.1); CARBON DIOXIDE LEVEL 28 MEQ/L (21-32); CHLORIDE LEVEL 109 MEQ/L (98-107); CREATININE FOR GFR 0.53 MG/DL (0.55-1.02); GLOMERULAR FILTRATION RATE > 60.0 (>60); GLUCOSE, FASTING 84 MG/DL (70-105); POTASSIUM SERUM 3.1 MEQ/L (3.5-5.1); SODIUM LEVEL 146 MEQ/L (136-145); TOTAL PROTEIN 5.4 GM/DL (6.4-8.2)
[2017-08-25] MEDS ORDERED: POTASSIUM CHLORIDE 10 MEQ SR TABLET PO ONE (07:30)
[2017-08-25] MEDS: METOCLOPRAMIDE INJ 10MG/2ML VIAL (J2765) IV PRN (08:46)
[2017-08-25] MEDS: LORazepam 1 MG TAB PO PRN (08:46)
--- NOTE | 2017-08-25 09:22 | IPNPDOC ---
Text Note Date of Service The patient was seen on 08/25/17. NOTE Addendum to note on 08/23/17 the rapid assessment note I dictated. It was later on found out the bottle she drank only contained oxycodone confirmed with pharmacy. The full bottle contained 500 mg of liquid oxycodone and patient stated she drank half a bottle of it. This is for clarification purposes. GME ATTESTATION My preceptor for this patient encounter was physically present in the building during the encounter and was fully available. As needed, all aspects of the patient interview, examination, medical decision making process, and medical care plan development were reviewed and approved by the preceptor. Preceptor is aware and concurs with the plan as stated in the body of this note and will attest to such by his/her cosignature. VS,Fishbone, I+O VS, Fishbone, I+O Laboratory Tests 08/25/17 05:48 Red Blood Count 3.44 L, Mean Corpuscular Volume 71.8 L, Mean Corpuscular Hemoglobin 20.9 L, Mean Corpuscular Hemoglobin Concent 29.1 L, Red Cell Distribution Width 17.6 H, Neutrophils (%) (Auto) 47.0, Lymphocytes (%) (Auto) 35.3, Monocytes (%) (Auto) 11.8 H, Eosinophils (%) (Auto) 4.7 H, Basophils (%) ( Auto) 0.9, Neutrophils # (Auto) 1.6 L, Lymphocytes # (Auto) 1.2 L, Monocytes # ( Auto) 0.4, Eosinophils # (Auto) 0.2, Basophils # (Auto) 0.0 Vital Signs Date Time Temp Pulse Resp B/P (MAP) Pulse Ox O2 Delivery O2 Flow Rate FiO2 08/25/17 07:10 18 08/25/17 06:00 97.6 70 101/54 (70) 95 Room Air I&O- Last 24 Hours up to 6 AM 08/26/17 06:00 Intake Total 0 ml Output Total 0 ml Balance 0 ml TRISH BETTS DO Aug 25, 2017 09:22
[2017-08-25] MEDS: FERROUS SULFATE 325MG TAB PO SCH ×3 (09:31→20:08)
[2017-08-25] MEDS: SENOKOT S TAB PO SCH ×2 (09:31→20:08)
[2017-08-25] MEDS: levETIRAcetam 250MG TABLET (KEPPRA) PO SCH ×2 (09:31→20:09)
[2017-08-25] MEDS: THIAMINE 100 MG TAB PO SCH (09:31)
[2017-08-25] MEDS: CYANOCOBALAMIN 500 MCG TAB PO SCH (09:31)
[2017-08-25] MEDS: SUCRALFATE 1 GM TAB PO SCH ×4 (09:31→20:08)
[2017-08-25] MEDS: FLUoxetine 20 MG CAP PO SCH (09:31)
[2017-08-25] MEDS: PANTOPRAZOLE 40MG INJ (PROTONIX) (C9113) IV SCH (09:32)
[2017-08-25] MEDS ORDERED: diphenhydrAMINE INJ 50MG/ML VIAL (J1200) As Ordered ONE (12:28)
[2017-08-25] MEDS ORDERED: diphenhydrAMINE INJ 50MG/ML VIAL (J1200) IV ONE (13:00)
[2017-08-25 14:00] VITALS: BP 125/70
--- NOTE | 2017-08-25 16:46 | IPNPDOC ---
Text Note Date of Service The patient was seen on 08/25/17. NOTE Subjective: 37 years old female with childhood asthma, hx of gastric bypass, malnutrition, hx of kidney stones, anxiety depression, protein S deficiency not on anticoagulants, hx of MRSA wound, and VRE catheter infection presented with SOB was initially under care of general surgery then transferred to medicine service after overdosed on ambien and oxycodone on 08/23/17. Patient seen and examined at bedside. She still admits to abdominal pain. Denies any chest pain, sob, abdominal pain, nausea, vomiting, diarrhea, constipation, blood in urine or stool. Denies any other current new complaints. Objective: Vitals: (See below) General: Patient is a young female laying comfortably in bed, AAOx3, not in apparent distress, with head elevated at 30 degrees HEENT: Normal cephalic atraumatic, Extraocular motion intact, pupil equal round and reactive to light, mucosal membrane moist, neck supple, no neck lymphadenopathy Cardio: RRR, Normal S1, S2, No murmur/rubs/gallops Pulm: Clear to auscultations bilaterally, no wheezing, rales, or rhonchi. Abdomen: + bowel sounds, soft, NT/ND, no peritoneal signs, no ecchymosis, no masses that were palpable Ext: No edema, clubbing, or cynosis Skin: Warm and dry Neuro: Cranial Nerve 2 through 12 intact, No focal neurological deficit Labs ( See below) Most significantly: Images/Procedures: Assessment and Plan: Ileus vs pSBO - follow general surgery recommendations - Zofran/Reglan PRN - milk of mag, dulcolax Melanotic stools/ coffe ground emesis with chronic anemia 2/2 AKBAR - Hgb 7.2, transfused her 1 uprbc after obtained consent - Dr. Tom, general surgery is on board, recommended observation - Continue PO ferrous sulfate - Possible EGD/colonoscopy outpatient Chronic abd pain on chronic opioid therapy - Morphin sulfate 10 mg q6Hprn, fentanyl 50 mcg q72h - Carafate - Colace with Senna Possible suicidal attempt - Dr. Thomas from psychiatry has been consulted Dehydration/malnutrition due to gastric bypass - IVF Elevated lactic acid 2/2 dehydration - improved Depression - Prozac DVT prophylaxis: SCD patient is ambulatory Fluid, Electrolytes, Nutrition: Soft diet with plastic silverware Code: DNR Disposition: Psychiatric consultation GME ATTESTATION My preceptor for this patient encounter was physically present in the building during the encounter and was fully available. As needed, all aspects of the patient interview, examination, medical decision making process, and medical care plan development were reviewed and approved by the preceptor. Preceptor is aware and concurs with the plan as stated in the body of this note and will attest to such by his/her cosignature. VS,Fishbone, I+O VS, Fishbone, I+O Laboratory Tests 08/25/17 05:48 Red Blood Count 3.44 L, Mean Corpuscular Volume 71.8 L, Mean Corpuscular Hemoglobin 20.9 L, Mean Corpuscular Hemoglobin Concent 29.1 L, Red Cell Distribution Width 17.6 H, Neutrophils (%) (Auto) 47.0, Lymphocytes (%) (Auto) 35.3, Monocytes (%) (Auto) 11.8 H, Eosinophils (%) (Auto) 4.7 H, Basophils (%) ( Auto) 0.9, Neutrophils # (Auto) 1.6 L, Lymphocytes # (Auto) 1.2 L, Monocytes # ( Auto) 0.4, Eosinophils # (Auto) 0.2, Basophils # (Auto) 0.0 Vital Signs Date Time Temp Pulse Resp B/P (MAP) Pulse Ox O2 Delivery O2 Flow Rate FiO2 08/25/17 06:11 16 08/25/17 06:00 97.6 70 101/54 (70) 95 Room Air I&O- Last 24 Hours up to 6 AM 08/26/17 06:00 Intake Total 0 ml Output Total 0 ml Balance 0 ml TRISH BETTS DO Aug 25, 2017 09:31 CHRISTEN ESCOBAR MD Sep 08, 2017 21:22
[2017-08-25] MEDS: ACETAMINOPHEN TAB 650MG DOSE (2X325MG) PO PRN (18:31)
[2017-08-25 22:00] VITALS: BP 130/79
--- NOTE | 2017-08-25 22:00 | REPUSA ---
CLINICAL HISTORY: Thrombophlebitis on the left antecubital. TECHNIQUE: Realtime sonographic images were obtained in multiple projections. FINDINGS: The internal jugular veins, innominate veins, subclavian veins, and axillary veins are anechoic and, where accessible, are compressible bilaterally. Appropriate spontaneous and pulsatile flow is docume nted bilaterally with Doppler evaluation. Superficial vessel in antecubital. Thrombus with echogenic inflamed tissue surrounding consistent wi th thrombophlebitis. IMPRESSION: 1. No evidence of deep venous thrombosis in the upper extremity venous vasculature. 2. Superficial vessel in antecubital. Thrombus with echogenic inflamed tissue surrounding consisten t with thrombophlebitis.
[2017-08-26] MEDS: METOCLOPRAMIDE INJ 10MG/2ML VIAL (J2765) IV PRN ×2 (05:24→12:17)
[2017-08-26] MEDS: MORPHINE SULFATE ORAL SOLN 10 MG/5 ML UD PO PRN ×3 (05:24→18:30)
[2017-08-26 06:00] VITALS: BP 116/72
[2017-08-26 06:00] LABS: BASO % 0.9 % (0.0-1.0); EOS # 0.3 10^3/uL (0.0-0.50); EOS % 5.8 % (0.0-3.0); IMMATURE GRANULOCYTE % 0.2 % (0-0); LYMPH # 1.5 10^3/uL (1.5-4.5); LYMPH % 32.9 % (24.0-44.0); MEAN CORPUSCULAR HEMOGLOBIN 21.8 pg (27.0-33.0); MEAN CORPUSCULAR HGB CONC 29.1 g/dl (32.0-36.5); MEAN CORPUSCULAR VOLUME 74.9 fl (80.0-96.0); MONO # 0.6 10^3/uL (0.0-0.8); NEUTROPHILS # 2.1 10^3/uL (1.8-7.7); NEUTROPHILS % 47.2 % (36.0-66.0); PLATELET COUNT, AUTOMATED 287 10^3/uL (150-450); RED CELL DISTRIBUTION WIDTH 18.3 % (11.5-14.5); WHITE BLOOD COUNT 4.5 10^3/uL (4.0-10.0)
[2017-08-26 06:31] LABS: ALBUMIN 3.2 GM/DL (3.2-5.2); ALBUMIN/GLOBULIN RATIO 1.14 (1.00-1.93); ALKALINE PHOSPHATASE 134 U/L (45-117); ALT/SGPT 29 U/L (12-78); ANION GAP 8 MEQ/L (8-16); AST/SGOT 17 U/L (7-37); BILIRUBIN,DIRECT 0.1 MG/DL (0.0-0.2); BILIRUBIN,TOTAL 0.7 MG/DL (0.2-1.0); BLOOD UREA NITROGEN 2 MG/DL (7-18); CALCIUM LEVEL 8.7 MG/DL (8.5-10.1); CARBON DIOXIDE LEVEL 27 MEQ/L (21-32); CHLORIDE LEVEL 109 MEQ/L (98-107); CREATININE FOR GFR 0.59 MG/DL (0.55-1.02); GLOMERULAR FILTRATION RATE > 60.0 (>60); GLUCOSE, FASTING 84 MG/DL (70-105); POTASSIUM SERUM 3.8 MEQ/L (3.5-5.1); SODIUM LEVEL 144 MEQ/L (136-145)
[2017-08-26] MEDS: SUCRALFATE 1 GM TAB PO SCH ×5 (07:30→20:34)
[2017-08-26] MEDS: FLUoxetine 20 MG CAP PO SCH (07:45)
[2017-08-26] MEDS: levETIRAcetam 250MG TABLET (KEPPRA) PO SCH ×2 (07:45→20:32)
[2017-08-26] MEDS: PANTOPRAZOLE 40MG INJ (PROTONIX) (C9113) IV SCH (07:46)
[2017-08-26] MEDS: THIAMINE 100 MG TAB PO SCH (07:46)
[2017-08-26] MEDS: SENOKOT S TAB PO SCH ×2 (07:46→20:32)
[2017-08-26] MEDS: CYANOCOBALAMIN 500 MCG TAB PO SCH (07:46)
[2017-08-26] MEDS: FERROUS SULFATE 325MG TAB PO SCH ×3 (07:46→20:32)
[2017-08-26] MEDS ORDERED: POTASSIUM CHLORIDE 10 MEQ SR TABLET PO ONE (08:30)
[2017-08-26] MEDS: fentaNYL 50 MCG/HR PATCH TOP SCH (13:48)
[2017-08-26] MEDS: FENTANYL REMOVAL DOCUMENTATION MISC XX SCH (13:49)
[2017-08-26 14:00] VITALS: BP 120/60
--- NOTE | 2017-08-26 14:21 | IPNPDOC ---
Text Note Date of Service The patient was seen on 08/26/17. NOTE Subjective: 37 years old female with childhood asthma, hx of gastric bypass, malnutrition, hx of kidney stones, anxiety depression, protein S deficiency not on anticoagulants, hx of MRSA wound, and VRE catheter infection presented with SOB was initially under care of general surgery then transferred to medicine service after overdosed on ambien and oxycodone on 08/23/17. Patient seen and examined at bedside. She still admits to abdominal pain. Denies any chest pain, sob, abdominal pain, nausea, vomiting, diarrhea, constipation, blood in urine or stool. Denies any other current new complaints. Objective: Vitals: (See below) General: Patient is a young female laying comfortably in bed, AAOx3, not in apparent distress, with head elevated at 30 degrees HEENT: Normal cephalic atraumatic, Extraocular motion intact, pupil equal round and reactive to light, mucosal membrane moist, neck supple, no neck lymphadenopathy Cardio: RRR, Normal S1, S2, No murmur/rubs/gallops Pulm: Clear to auscultations bilaterally, no wheezing, rales, or rhonchi. Abdomen: + bowel sounds, soft, mildly tender to palpation, none distended, no peritoneal signs, no ecchymosis, no masses that were palpable Ext: No edema, clubbing, or cyanosis. Erythema, tenderness of the antecubital region of LUE. Distal pulse intact. Skin: Warm and dry Neuro: Cranial Nerve 2 through 12 intact, No focal neurological deficit Labs ( See below) Most significantly: Images/Procedures: Duplex of L UE 08/25/17: superficial thrombus with echogenic inflamed tissue of antecubital Assessment and Plan: Ileus vs pSBO - follow general surgery recommendations - Zofran/Reglan PRN - milk of mag, dulcolax Superficial thrombophlebitis with history of protein S deficiency - Her protein S level was low back in 2004 but back in normal in 2005, will repeat the levels - Dr. Trevizo from vascular surgery was consulted and will follow his recommendations Melanotic stools/ coffee ground emesis with chronic anemia 2/2 AKBAR - Hgb 7.2, transfused her 1 uprbc after obtained consent - Dr. Tom, general surgery is on board, recommended observation - Continue PO ferrous sulfate - Possible EGD/colonoscopy outpatient Chronic abd pain on chronic opioid therapy - Morphin sulfate 10 mg q6Hprn, fentanyl 50 mcg q72h - Carafate - Colace with Senna Possible suicidal attempt - Dr. Thomas from psychiatry has been consulted Dehydration/malnutrition due to gastric bypass - IVF Elevated lactic acid 2/2 dehydration - improved Depression - Prozac DVT prophylaxis: SCD patient is ambulatory Fluid, Electrolytes, Nutrition: Soft diet with plastic silverware Code: DNR Disposition: Psychiatric consultation report pending GME ATTESTATION My preceptor for this patient encounter was physically present in the building during the encounter and was fully available. As needed, all aspects of the patient interview, examination, medical decision making process, and medical care plan development were reviewed and approved by the preceptor. Preceptor is aware and concurs with the plan as stated in the body of this note and will attest to such by his/her cosignature. VS,Fishbone, I+O VS, Fishbone, I+O Laboratory Tests 08/26/17 05:33 Red Blood Count 4.18, Mean Corpuscular Volume 74.9 L, Mean Corpuscular Hemoglobin 21.8 L, Mean Corpuscular Hemoglobin Concent 29.1 L, Red Cell Distribution Width 18.3 H, Neutrophils (%) (Auto) 47.2, Lymphocytes (%) (Auto) 32.9, Monocytes (%) (Auto) 13.0 H, Eosinophils (%) (Auto) 5.8 H, Basophils (%) ( Auto) 0.9, Neutrophils # (Auto) 2.1, Lymphocytes # (Auto) 1.5, Monocytes # (Auto ) 0.6, Eosinophils # (Auto) 0.3, Basophils # (Auto) 0.0 Vital Signs Date Time Temp Pulse Resp B/P (MAP) Pulse Ox O2 Delivery O2 Flow Rate FiO2 08/26/17 13:48 17 08/26/17 06:00 98.1 84 116/72 (87) 95 Room Air I&O- Last 24 Hours up to 6 AM 08/27/17 06:00 Intake Total 800 ml Output Total 0 ml Balance 800 ml TRISH BETTS DO Aug 26, 2017 14:21 CHRISTEN ESCOBAR MD Sep 08, 2017 21:28
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
[2017-08-26] MEDS: PROMETHAZINE INJ 25 MG/ML VIAL (J2550) IV PRN (16:28)
[2017-08-26 22:00] VITALS: BP 109/65
[2017-08-27] MEDS: METOCLOPRAMIDE INJ 10MG/2ML VIAL (J2765) IV PRN ×2 (00:56→14:24)
[2017-08-27] MEDS: MORPHINE SULFATE ORAL SOLN 10 MG/5 ML UD PO PRN ×4 (00:57→20:52)
[2017-08-27 06:00] VITALS: BP 98/64
[2017-08-27 07:07] LABS: BASO % 0.8 % (0.0-1.0); EOS # 0.3 10^3/uL (0.0-0.50); LYMPH # 1.3 10^3/uL (1.5-4.5); LYMPH % 34.1 % (24.0-44.0); MEAN CORPUSCULAR HEMOGLOBIN 22.1 pg (27.0-33.0); MEAN CORPUSCULAR HGB CONC 29.6 g/dl (32.0-36.5); MEAN CORPUSCULAR VOLUME 74.6 fl (80.0-96.0); MONO # 0.5 10^3/uL (0.0-0.8); MONO % 12.4 % (0.0-5.0); NEUTROPHILS # 1.8 10^3/uL (1.8-7.7); NEUTROPHILS % 45.7 % (36.0-66.0); PLATELET COUNT, AUTOMATED 303 10^3/uL (150-450); RED CELL DISTRIBUTION WIDTH 18.8 % (11.5-14.5); WHITE BLOOD COUNT 3.9 10^3/uL (4.0-10.0)
[2017-08-27 07:29] LABS: ALBUMIN 3.2 GM/DL (3.2-5.2); ALBUMIN/GLOBULIN RATIO 1.19 (1.00-1.93); ALKALINE PHOSPHATASE 125 U/L (45-117); ALT/SGPT 25 U/L (12-78); ANION GAP 6 MEQ/L (8-16); AST/SGOT 17 U/L (7-37); BILIRUBIN,DIRECT 0.1 MG/DL (0.0-0.2); BILIRUBIN,TOTAL 0.6 MG/DL (0.2-1.0); BLOOD UREA NITROGEN 4 MG/DL (7-18); CALCIUM LEVEL 8.5 MG/DL (8.5-10.1); CARBON DIOXIDE LEVEL 30 MEQ/L (21-32); CHLORIDE LEVEL 105 MEQ/L (98-107); CREATININE FOR GFR 0.63 MG/DL (0.55-1.02); GLOMERULAR FILTRATION RATE > 60.0 (>60); GLUCOSE, FASTING 84 MG/DL (70-105); MAGNESIUM LEVEL 2.2 MG/DL (1.8-2.4); POTASSIUM SERUM 3.8 MEQ/L (3.5-5.1); SODIUM LEVEL 141 MEQ/L (136-145); TOTAL PROTEIN 5.9 GM/DL (6.4-8.2)
[2017-08-27] MEDS: SUCRALFATE 1 GM TAB PO SCH ×4 (07:30→20:51)
[2017-08-27] MEDS: levETIRAcetam 250MG TABLET (KEPPRA) PO SCH ×2 (08:20→20:51)
[2017-08-27] MEDS: THIAMINE 100 MG TAB PO SCH (08:21)
[2017-08-27] MEDS: PANTOPRAZOLE 40MG INJ (PROTONIX) (C9113) IV SCH (08:21)
[2017-08-27] MEDS: ONDANSETRON 4MG/2ML VIAL (J2405) IV PRN (08:21)
[2017-08-27] MEDS: SENOKOT S TAB PO SCH ×2 (08:21→20:51)
[2017-08-27] MEDS: FERROUS SULFATE 325MG TAB PO SCH ×3 (08:21→20:51)
[2017-08-27] MEDS: CYANOCOBALAMIN 500 MCG TAB PO SCH (08:21)
[2017-08-27] MEDS: FLUoxetine 20 MG CAP PO SCH (08:21)
[2017-08-27 14:00] VITALS: BP 117/58
--- NOTE | 2017-08-27 14:12 | CR.PDOC ---
General Surgery Consultation Date of Consultation 08/27/17 History and Physical REASON FOR CONSULTATION: Left antecubital fossa thrombophlebitis HISTORY OF PRESENT ILLNESS: Patient is a 37-year-old female who was admitted with abdominal pain, nausea and vomiting with small bowel obstruction who underwent either a cannulation or IV placement in the left antecubital fossa vein in the medial forearm which has now become inflamed and demonstrates thrombophlebitis. Patient had an ultrasound showing no DVT in the left upper extremity but there is inflammation and thrombophlebitis and a short segment of the vein and the antecubital fossa which is the basilic vein. Patient denies any chest pain, shortness of breath, hemoptysis, TIAs, amaurosis fugax, dysarthria, paralysis or paresis of an extremity. PAST MEDICAL HISTORY: 1. Childhood asthma, obesity, malabsorption and malnutrition status post gastric bypass surgery, kidney stones, anxiety, depression, protein S deficiency , anemia MRSA wound infection with cellulitis in the right leg and VRE catheter infection. PAST SURGICAL HISTORY: INCLUDES: 1. Hysterectomy, cervical cerclage, laparoscopic cholecystectomy, gastric bypass surgery, G-tube insertion. PREVIOUS ANESTHESIA REACTIONS: None ALLERGIES: Please see below. FAMILY HISTORY: Noncontributory. HOME MEDICATIONS: Please see below. REVIEW OF SYSTEMS: GENERAL: Denies chills, reports weight gain, reports feeling febrile yesterday. HEENT: Denies blurred vision and double vision. Denies ear symptoms. Denies hoarseness. NECK: Denies any neck pain. CARDIOVASCULAR: Denies chest pain and palpitations. MUSCULOSKELETAL: Denies arthralgias, back pain and thrombophlebitis. SKIN: Denies rash. NEUROLOGIC: Denies headache, stroke and transient ischemic attack. PSYCHIATRIC: Denies anxiety and depression. ENDOCRINE: Denies thyroid disease. HEMATOLOGY/ONCOLOGY: Denies bleeding or clotting disorder. HEART: Denies any chest pains, palpitations, paroxysmal dyspnea, orthopnea. PULMONARY: Denies chronic cough, dyspnea and wheezing. GASTROINTESTINAL: Denies rectal bleeding, family history of colon cancer, constipation, diarrhea, dysphagia, heartburn and jaundice. GENITOURINARY: Denies dysuria, frequency, hematuria and nocturia. ENDOCRINE: Denies polydipsia, polyphagia, polyuria, heat or cold intolerance. INFECTIOUS: Denies any recent upper respiratory tract infection, UTI, need for use of antibiotics. NUTRITION: Reports good appetite. PHYSICAL EXAMINATION: VITALS SIGNS: Please see below. GENERAL APPEARANCE:Patient seen, laying in bed, awake, alert, and oriented. Comfortable, in no acute distress. SKIN: Warm and moist. HEENT: Normocephalic, atraumatic. [place] palpebral conjunctiva, anicteric sclerae. Lips and mucosa appear moist. NECK: Supple, no thyromegaly. No obvious jugular venous distention. LUNGS: Clear to auscultation bilaterally. No wheezing appreciated. HEART: No chest wall abnormalities. Regular rate and rhythm with no murmurs appreciated. ABDOMEN: Abdomen is without palpable pulsatile mass. No hepatosplenomegaly. No umbilical or groin herniations, nondistended. No noticeable rebound or guarding. No grimacing with palpation. No rebound tenderness. No masses appreciated. EXTREMITIES: Extremities have no deformities. No edema identified. 2+ brachial radial and ulnar pulses the upper extremities. 2+ femoral popliteal discussed these and posterior tibial pulses in the lower extremity. The basilic vein in the median antecubital region shows some induration and tenderness to palpation with some warmth but no cellulitis. ANCILLARIES: Ultrasound of the left upper extremity shows no evidence of deep venous thrombosis but there is thrombophlebitis in the basilic vein at the left antecubital fossa for a short segment. LABORATORY DATA: Please see below. IMPRESSION AND PLAN: Patient is a 37-year-old female with previous gastric bypass surgery and multiple complications post procedure who is now admitted with small bowel obstruction with nausea, vomiting and abdominal pain. The patient has thrombophlebitis in the left antecubital fossa region in the basilic vein limited to the antecubital fossa region. There is no evidence of deep venous thrombosis the patient does not require anticoagulation at this time, but the patient does have a history of protein S deficiency and the left upper extremity must be monitored closely. If the patient develops any swelling or propagation of her thrombophlebitis a repeat ultrasound is necessary. With regards to the area of thrombophlebitis the patient should undergo warm compresses regularly. Due to the warmth and tenderness of the vein I recommended that she also be placed on antibiotic therapy with IV Zosyn during her hospital stay and conversion to Augmentin upon discharge with a total length of antibiotic therapy of 10 days. Patient should elevate the left upper extremity as much as possible. Patient will follow-up with me as an outpatient in the office one week after discharge to home. Vital Signs Vital Signs Date Time Temp Pulse Resp B/P (MAP) Pulse Ox O2 Delivery O2 Flow Rate FiO2 08/27/17 08:50 16 08/27/17 06:00 98.2 70 98/64 (75) 97 Room Air 98.2 I&Os I&O- Last 24 Hours up to 6 AM 08/28/17 06:00 Intake Total 120 ml Output Total 300 ml Balance -180 ml Laboratory Data Labs 24H Laboratory Tests 2 08/27/17 06:28: Immature Granulocyte % (Auto) 0.0, White Blood Count 3.9L, Red Blood Count 4.17 , Hemoglobin 9.2L, Hematocrit 31.1L, Mean Corpuscular Volume 74.6L, Mean Corpuscular Hemoglobin 22.1L, Mean Corpuscular Hemoglobin Concent 29.6L, Red Cell Distribution Width 18.8H, Platelet Count 303, Neutrophils (%) (Auto) 45.7, Lymphocytes (%) (Auto) 34.1, Monocytes (%) (Auto) 12.4H, Eosinophils (%) (Auto) 7.0H, Basophils (%) (Auto) 0.8, Neutrophils # (Auto) 1.8, Lymphocytes # (Auto) 1.3L, Monocytes # (Auto) 0.5, Eosinophils # (Auto) 0.3, Basophils # (Auto) 0.0, Immature Granulocyte # (Auto) 0.0, Nucleated Red Blood Cells % (auto) 0.0, Anion Gap 6L, Glomerular Filtration Rate > 60.0, Calcium Level 8.5, Magnesium Level 2.2, Aspartate Amino Transf (AST/SGOT) 17, Alanine Aminotransferase (ALT/ SGPT) 25, Alkaline Phosphatase 125H, Total Bilirubin 0.6, Direct Bilirubin 0.1, Total Protein 5.9L, Albumin 3.2, Albumin/Globulin Ratio 1.19 CBC/BMP Laboratory Tests 08/27/17 06:28 Red Blood Count 4.17, Mean Corpuscular Volume 74.6 L, Mean Corpuscular Hemoglobin 22.1 L, Mean Corpuscular Hemoglobin Concent 29.6 L, Red Cell Distribution Width 18.8 H, Neutrophils (%) (Auto) 45.7, Lymphocytes (%) (Auto) 34.1, Monocytes (%) (Auto) 12.4 H, Eosinophils (%) (Auto) 7.0 H, Basophils (%) ( Auto) 0.8, Neutrophils # (Auto) 1.8, Lymphocytes # (Auto) 1.3 L, Monocytes # ( Auto) 0.5, Eosinophils # (Auto) 0.3, Basophils # (Auto) 0.0 Microbiology Microbiology 08/21/17 Blood Culture - Final, Complete NO GROWTH AFTER 5 DAYS 08/21/17 Blood Culture - Final, Complete NO GROWTH AFTER 5 DAYS Home Medications Scheduled Fentanyl (Fentanyl) 50 Mcg Tdsy, 50 MCG TD Q3RD, (Reported) PT DOES NOT HAVE A PATCH ON CURRENTLY Fluoxetine HCl (Fluoxetine HCl) 20 Mg/5 Ml Liqd, 20 MG PO DAILY, (Reported) Levetiracetam (Keppra) 500 Mg Tab, 500 MG PO BID, (Reported) PT HAS NOT TAKEN IN 2 WEEKS Zolpidem Tartrate (Zolpidem Tartrate) 10 Mg Tab, 10 MG PO QHS, (Reported) Scheduled PRN (Oxycodone HCl) 5 Mg/5 Ml Martha, 10 MG PO Q6H PRN for PAIN, (Reported) PT USES LIQUID IF SHE CAN'T KEEP THE TABLETS DOWN Carisoprodol (Carisoprodol) 350 Mg Tab, 350 MG PO TID PRN for MUSCLE SPASMS, ( Reported) Lorazepam (Lorazepam) 1 Mg Tab, 1 MG PO Q6H PRN for ANXIETY, (Reported) Ondansetron (Ondansetron Odt) 8 Mg Tab, 8 MG PO Q8H PRN for NAUSEA, (Reported) Oxycodone Hcl (Oxycodone HCl) 15 Mg Tab, 15 MG PO Q6H PRN for PAIN, (Reported) Promethazine HCl (Phenergan) 25 Mg Sup, 25 MG MD for NAUSEA, (Reported) Allergies Coded Allergies: Butorphanol (Verified Allergy, Severe, HIVES/RESP. PROBLEMS (PERCOCET AND TYL#3 OK), 01/21/13) Sulfa Drugs (Verified Allergy, Severe, SWELLING,HIVES,RESP. PROBLEMS, ) Tomato (Verified Allergy, Severe, HIVES/RESP. PROBLEMS, 01/21/13) Mehdi Trevizo MD Aug 27, 2017 14:12
[2017-08-27] MEDS: AUGMENTIN 875 MG TAB PO SCH ×2 (14:44→20:50)
[2017-08-27] MEDS: ONDANSETRON 4 MG TAB (S0181) PO PRN ×2 (14:44→20:51)
[2017-08-27] MEDS ORDERED: METOCLOPRAMIDE 5 MG TAB PO PRN (14:45)
--- NOTE | 2017-08-27 15:18 | IPNPDOC ---
Text Note Date of Service The patient was seen on 08/27/17. NOTE Subjective: 37 years old female with childhood asthma, hx of gastric bypass, malnutrition, hx of kidney stones, anxiety depression, protein S deficiency not on anticoagulants, hx of MRSA wound, and VRE catheter infection presented with SOB was initially under care of general surgery then transferred to medicine service after overdosed on ambien and oxycodone on 08/23/17. Patient seen and examined at bedside. She still admits to mild abdominal pain that is now at baseline, she would like to go home. Admits to the swelling on her left arm feels about the same. Denies any chest pain, sob, nausea, vomiting , diarrhea, constipation, blood in urine or stool. Denies any other current new complaints. Objective: Vitals: (See below) General: Patient is a young female laying comfortably in bed, AAOx3, not in apparent distress, with head elevated at 30 degrees HEENT: Normal cephalic atraumatic, Extraocular motion intact, pupil equal round and reactive to light, mucosal membrane moist, neck supple, no neck lymphadenopathy Cardio: RRR, Normal S1, S2, No murmur/rubs/gallops Pulm: Clear to auscultations bilaterally, no wheezing, rales, or rhonchi. Abdomen: + bowel sounds, soft, mildly tender to palpation around umbilicus, none distended, no peritoneal signs, no ecchymosis, no masses that were palpable Ext: No edema, clubbing, or cynosis Skin: Warm and dry Neuro: Cranial Nerve 2 through 12 intact, No focal neurological deficit Labs ( See below) Most significantly: Images/Procedures: Assessment and Plan: Ileus vs pSBO - clinically improved, no nausea, vomting or constipatino, passing flatus - follow general surgery recommendations - Zofran/Reglan PRN - milk of mag, dulcolax Superficial thrombophlebitis with history of protein S deficiency - Her protein S level was low back in 2004 but back in normal in 2005, will repeat the levels - Dr. Trevizo from vascular surgery was consulted recommended elevated the left arm and warm compress as often as possible, and recommended antibiotics, after reviewing her area of thrombophlebitis - Will start Augmentin Melanotic stools/ coffee ground emesis with chronic anemia 2/2 AKBAR - Hgb 7.2, transfused her 1 uprbc after obtained consent - Dr. Tom, general surgery is on board, recommended observation - Continue PO ferrous sulfate - Outpatient follow up for evaluation and possible EGD/colonoscopy Chronic abd pain on chronic opioid therapy - Morphin sulfate 10 mg q6Hprn, fentanyl 50 mcg q72h - Carafate - Colace with Senna Possible suicidal attempt - Dr. Thomas from psychiatry has been consulted and would like patient to have outpatient follow up with her psychiatry - Due to patient did have an obvious overdose where she drank half a bottle of oxycodone and initially admitted she took 14 pills of Ambien, will consult psychiatry again, we would like to make sure that the complete story was conveyed to our risk and insurance consultant. - Dr. Luke notified Dehydration/malnutrition due to gastric bypass - improved Elevated lactic acid 2/2 dehydration - improved Depression - Prozac DVT prophylaxis: SCD patient is ambulatory Fluid, Electrolytes, Nutrition: Soft diet with plastic silverware Code: DNR Disposition: Reconsult Psychiatric GME ATTESTATION My preceptor for this patient encounter was physically present in the building during the encounter and was fully available. As needed, all aspects of the patient interview, examination, medical decision making process, and medical care plan development were reviewed and approved by the preceptor. Preceptor is aware and concurs with the plan as stated in the body of this note and will attest to such by his/her cosignature. ATTENDING NOTE I, Ruben Farfan, have both independently examined this patient as well as reviewed the documentation. I have discussed in detail with the resident the findings and plan of treatment as documented in the residents documentation. I will continue to follow the patient and offer further guidance to the patients care as necessary during this hospital stay. VS,Fishbone, I+O VS, Fishbone, I+O Laboratory Tests 08/27/17 06:28 Red Blood Count 4.17, Mean Corpuscular Volume 74.6 L, Mean Corpuscular Hemoglobin 22.1 L, Mean Corpuscular Hemoglobin Concent 29.6 L, Red Cell Distribution Width 18.8 H, Neutrophils (%) (Auto) 45.7, Lymphocytes (%) (Auto) 34.1, Monocytes (%) (Auto) 12.4 H, Eosinophils (%) (Auto) 7.0 H, Basophils (%) ( Auto) 0.8, Neutrophils # (Auto) 1.8, Lymphocytes # (Auto) 1.3 L, Monocytes # ( Auto) 0.5, Eosinophils # (Auto) 0.3, Basophils # (Auto) 0.0 Vital Signs Date Time Temp Pulse Resp B/P (MAP) Pulse Ox O2 Delivery O2 Flow Rate FiO2 08/27/17 08:50 16 08/27/17 06:00 98.2 70 98/64 (75) 97 Room Air 98.2 I&O- Last 24 Hours up to 6 AM 08/28/17 06:00 Intake Total 120 ml Output Total 0 ml Balance 120 ml TRISH BETTS DO Aug 27, 2017 11:34 RUBEN FARFAN MD Aug 27, 2017 18:14
[2017-08-27 22:00] VITALS: BP 117/56
[2017-08-28 06:00] VITALS: BP 108/60
[2017-08-28] MEDS: MORPHINE SULFATE ORAL SOLN 10 MG/5 ML UD PO PRN ×2 (06:17→12:23)
[2017-08-28 06:35] LABS: BASO % 0.7 % (0.0-1.0); EOS # 0.3 10^3/uL (0.0-0.50); EOS % 6.1 % (0.0-3.0); IMMATURE GRANULOCYTE % 0.4 % (0-0); LYMPH # 1.2 10^3/uL (1.5-4.5); LYMPH % 21.5 % (24.0-44.0); MEAN CORPUSCULAR HEMOGLOBIN 22.4 pg (27.0-33.0); MEAN CORPUSCULAR HGB CONC 30.1 g/dl (32.0-36.5); MEAN CORPUSCULAR VOLUME 74.6 fl (80.0-96.0); MONO # 0.7 10^3/uL (0.0-0.8); MONO % 12.4 % (0.0-5.0); NEUTROPHILS # 3.3 10^3/uL (1.8-7.7); NEUTROPHILS % 58.9 % (36.0-66.0); PLATELET COUNT, AUTOMATED 328 10^3/uL (150-450); RED CELL DISTRIBUTION WIDTH 19.7 % (11.5-14.5); WHITE BLOOD COUNT 5.6 10^3/uL (4.0-10.0)
[2017-08-28 06:50] LABS: ALBUMIN 3.3 GM/DL (3.2-5.2); ALBUMIN/GLOBULIN RATIO 1.14 (1.00-1.93); ALKALINE PHOSPHATASE 126 U/L (45-117); ALT/SGPT 24 U/L (12-78); ANION GAP 7 MEQ/L (8-16); AST/SGOT 16 U/L (7-37); BILIRUBIN,DIRECT 0.1 MG/DL (0.0-0.2); BILIRUBIN,TOTAL 0.4 MG/DL (0.2-1.0); BLOOD UREA NITROGEN 4 MG/DL (7-18); CALCIUM LEVEL 8.8 MG/DL (8.5-10.1); CARBON DIOXIDE LEVEL 29 MEQ/L (21-32); CHLORIDE LEVEL 105 MEQ/L (98-107); GLOMERULAR FILTRATION RATE > 60.0 (>60); GLUCOSE, FASTING 90 MG/DL (70-105); MAGNESIUM LEVEL 2.4 MG/DL (1.8-2.4); POTASSIUM SERUM 4.1 MEQ/L (3.5-5.1); SODIUM LEVEL 141 MEQ/L (136-145); TOTAL PROTEIN 6.2 GM/DL (6.4-8.2)
[2017-08-28] MEDS: THIAMINE 100 MG TAB PO SCH (08:03)
[2017-08-28] MEDS: FERROUS SULFATE 325MG TAB PO SCH ×2 (08:03→17:18)
[2017-08-28] MEDS: PANTOPRAZOLE 40MG INJ (PROTONIX) (C9113) IV SCH ×2 (08:03→09:00)
[2017-08-28] MEDS: levETIRAcetam 250MG TABLET (KEPPRA) PO SCH (08:03)
[2017-08-28] MEDS: FLUoxetine 20 MG CAP PO SCH (08:03)
[2017-08-28] MEDS: CYANOCOBALAMIN 500 MCG TAB PO SCH (08:03)
[2017-08-28] MEDS: SENOKOT S TAB PO SCH (08:03)
[2017-08-28] MEDS: SUCRALFATE 1 GM TAB PO SCH ×3 (08:03→17:18)
[2017-08-28] MEDS: AUGMENTIN 875 MG TAB PO SCH (08:03)
--- NOTE | 2017-08-28 10:56 | IPNPDOC ---
Text Note Date of Service The patient was seen on 08/28/17. NOTE Subjective: 37 years old female with childhood asthma, hx of gastric bypass, malnutrition, hx of kidney stones, anxiety depression, protein S deficiency not on anticoagulants, Hx of MRSA wound, and VRE catheter infection presented with SOB was initially under care of general surgery then transferred to medicine service after overdosed on Ambien and oxycodone on 08/23/17. Patient seen and examined at bedside. Admits to the swelling on her left arm feels better. Patient still has abdominal pain, however, it was patient's baseline. Denies any chest pain, sob, nausea, vomiting, diarrhea, constipation , blood in urine or stool. Denies any other current new complaints. Objective: Vitals: (See below) General: Patient is a young female laying comfortably in bed, AAOx3, not in apparent distress, with head elevated at 30 degrees HEENT: Normal cephalic atraumatic, Extraocular motion intact, pupil equal round and reactive to light, mucosal membrane moist, neck supple, no neck lymphadenopathy Cardio: RRR, Normal S1, S2, No murmur/rubs/gallops Pulm: Clear to auscultations bilaterally, no wheezing, rales, or rhonchi. Abdomen: + bowel sounds, soft, mildly tender to palpation around umbilicus, none distended, no peritoneal signs, no ecchymosis, no masses that were palpable Ext: No edema, clubbing, or cyanosis, roughly 2 x 4 cm rope like basilic vein at the left and cubital region. Erythema has resolved Skin: Warm and dry Neuro: Cranial Nerve 2 through 12 intact, No focal neurological deficit Assessment and Plan: Ileus vs pSBO - clinically improved, no nausea, vomiting or constipating, passing flatus - mild abdominal pain noted; at baseline - follow general surgery recommendations - Zofran/Reglan PRN - milk of mag, Dulcolax Superficial thrombophlebitis with history of Protein S deficiency - Her protein S level was low back in 2004 but back in normal in 2005, will repeat the levels - c/w Arm elevation, Warm Compresses - c/w Augment (Day #2) - Dr. Trevizo (Vascular surgery) consulted; Appreciate their input Melanotic stools/ coffee ground emesis with chronic anemia 2/2 AKBAR - s/p 1 unit PRBC (Consented) - Hg stable after transfusion - c/w Ferrous sulfate - Outpatient follow up for evaluation and possible EGD/colonoscopy - Dr. Tom (General surgery) consulted; Appreciate their input Possible suicidal attempt - Patient was noted to have an overdose event in the hospital where she had admitted she took 14 pills of Ambien - Dr. Thomas (Psychiatry) consulted; Has cleared the patient for discharge home and outpatient follow up with her own psychiatrist - Dr. Luke (Psychiatry); consulted for second opinion; awaiting evaluation Chronic abd pain on chronic opioid therapy - Morphine sulfate 10 mg q6Hprn, Fentanyl 50 mcg q72h - Carafate - Colace with Senna Dehydration/malnutrition due to gastric bypass - improved Elevated lactic acid 2/2 dehydration - improved Depression - Prozac DVT prophylaxis - SCD patient is ambulatory Fluid, Electrolytes, Nutrition: Soft diet with plastic silverware Code: - DNR Disposition: - Reconsult Psychiatric GME ATTESTATION My preceptor for this patient encounter was physically present in the building during the encounter and was fully available. As needed, all aspects of the patient interview, examination, medical decision making process, and medical care plan development were reviewed and approved by the preceptor. Preceptor is aware and concurs with the plan as stated in the body of this note and will attest to such by his/her cosignature. ATTENDING NOTE I, Ruben Farfan, have both independently examined this patient as well as reviewed the documentation. I have discussed in detail with the resident the findings and plan of treatment as documented in the residents documentation. I will continue to follow the patient and offer further guidance to the patients care as necessary during this hospital stay. VS,Tonyae, I+O VS, Tonyae, I+O Laboratory Tests 08/28/17 06:06 Red Blood Count 4.41, Mean Corpuscular Volume 74.6 L, Mean Corpuscular Hemoglobin 22.4 L, Mean Corpuscular Hemoglobin Concent 30.1 L, Red Cell Distribution Width 19.7 H, Neutrophils (%) (Auto) 58.9, Lymphocytes (%) (Auto) 21.5 L, Monocytes (%) (Auto) 12.4 H, Eosinophils (%) (Auto) 6.1 H, Basophils (% ) (Auto) 0.7, Neutrophils # (Auto) 3.3, Lymphocytes # (Auto) 1.2 L, Monocytes # (Auto) 0.7, Eosinophils # (Auto) 0.3, Basophils # (Auto) 0.0 Vital Signs Date Time Temp Pulse Resp B/P (MAP) Pulse Ox O2 Delivery O2 Flow Rate FiO2 08/28/17 06:58 18 08/28/17 06:00 97.1 89 108/60 (76) 92 Room Air I&O- Last 24 Hours up to 6 AM 08/29/17 06:00 Intake Total 240 ml Output Total 600 ml Balance -360 ml TRISH BETTS DO Aug 28, 2017 10:56 RUBEN FARFAN MD Aug 28, 2017 15:17
[2017-08-28] MEDS ORDERED: SIMETHICONE 80 MG CHEW TAB PO PRN (11:00)
[2017-08-28] MEDS ORDERED: METOCLOPRAMIDE 5 MG TAB PO PRN (11:00)
[2017-08-28] MEDS ORDERED: PROCHLORPERAZINE 5 MG TAB (S0183) PO PRN (11:00)
[2017-08-28] MEDS ORDERED: ONDANSETRON 4 MG ORAL DISINTEGRATING TAB (S0181) PO PRN (11:00)
[2017-08-28] MEDS: ONDANSETRON 4 MG TAB (S0181) PO PRN (12:06)
[2017-08-28 14:00] VITALS: BP 104/60
[2017-08-28 14:18] LABS: PROTEIN S ANTIGEN FREE 91 % (57-157); PROTEIN S ANTIGEN TOTAL 87 % (60-150)
--- NOTE | 2017-08-29 16:33 | CR ---
DATE OF CONSULTATION: 08/28/2017 CHIEF COMPLAINT: Says feels okay. SUBJECTIVE: She is 37 years old. She is . Has four children. She has a long history of medical difficulties, chronic abdominal complaints, various other features after gastric bypass, which occurred in 2008, and subsequent to that has had various hospitalization and several visits to the emergency room. She also sees Dr. Womack for psychiatric care, dealing with depression and anxiety, as far as I can tell. She was hospitalized August 21 and a couple days later was noted to be confused, sedated, and then agitated, and apparently running or walking down the corridor, per the nurses. There is some suspicion that she had taken an overdose of medicines that had been brought in from home by her , which included Ativan, oxycodone, and Ambien. She insisted she only took two Ambien, each 10 mg, for a total of 20 mg, and she denied that she was suicidal. Psychiatry was consulted. She was seen by Dr. Thomas, 3 days ago, August 25, and her conclusion was that the patient was not acutely suicidal at that time and that she could be discharged home once she is stable. I was called, however, by Dr. Farfan, hospitalist, who had taken over the service, and he had expressed concerns that other staff members had as well regarding the incident, and they wanted the patient re-evaluated. They were not sure whether Dr. Thomas was aware of the missing pills, though that was indicated in the assessment. Please refer to the assessment by Dr. Thomas regarding circumstances of the admission, background history, and mental status exam at the time she saw her 3 days ago. I talked to Dr. Thomas before seeing the patient. She informed me she was aware of the Ambien that was missing and that there was not a firm explanation for that, but that she did not think that the patient was acutely suicidal at the time that she was seen. I interviewed the patient. I also interviewed her , who came to the hospital later. I interviewed him alone with her permission. He was accompanied by their young daughter, who appeared neat, well clothed, well fed, quite well with the patient. It should be noted I saw and spoke with the patient separately and then her . The chart is also reviewed. She says that she had come in and that while here her had visited her. He had collected her prescriptions from the pharmacy. They were filled only a few days prior to that. All were for 30 days, and she indicated that she has some sort of a system with the oxycodone, where there is a large bottle which contains the liquid oxycodone, which does not fit into the safety box that they have, so she pours the oxycodone into a smaller bottle, which is what she had. She says she had likely had it in her bag when she had come in. This is a bit different from her , who suggested that the bottle may have "fallen" into the bag that he always had ready for her should she be hospitalized, as she has had several hospitalizations over the years. Says there is a bag which is always ready for that. All current medications, from what I understand, are with the hospital for safe keeping. There is quite a bit of discrepancy in terms of how the medicines had been left here, and I must admit it was difficult to follow that. Her suggested that he had collected the lorazepam and the Ambien from the pharmacy, came to visit his , was accompanied by the children. He had the medicines in his pocket. He says the children were a bit unruly, so he left with them and assumed that the bottles were still in his pocket, only to be called later to be told of his 's changed condition and altered mental status. He did not have an explanation as to how they ended up, the bottles, with his . He does say, however, that he does not keep the pills in the car or unchecked at home for fear that his children may come across them or that the pets may, and apparently that has happened in the past. He says they keep the oxycodone in a locked box, and he and his [id number] are the only people who have the keys to the box. He indicated the patient had requested that the medications be monitored a few months ago, and that they have been doing that since then. He also indicated he had never seen her pervasively depressed to the point where she had thought of killing herself. She had never attempted harming herself either, according to him, and they have been together for about 15 years or so. He says he had no immediate concerns regarding her ability to maintain her safety if she were to go home. He did say he is concerned about the change in mental status that had been observed a few days ago. It should be noted, when the patient was confused and agitated she was transferred to the intensive care unit (ICU), and she was given activated charcoal. As far as I know, there was no toxicology done, either blood or urine, after that incident. She was returned to the floor, per the nurses, relatively soon afterward and has displayed no confusion here. Has been somewhat upset with the fact that she is not able to go home until she has been assessed again by psychiatry. She says she sees Dr. Womack for anxiety and depression and that she attends appointments regularly. She apparently last saw him a couple of months ago and is due to see him again the end of this month, September 19. She says she used to see Dr. Salazar until Dr. Salazar , and then subsequent to that saw Dr. Womack, initially once a week. That went on for quite awhile. Then once a month, from earlier this year, and now most recently once every 3 months. Adamantly denied that she tried killing herself or that she has had desires to do so. Says is quite concerned regarding her children and their welfare and wants to be with them. Says has four children. One is in college. The other turns 18 in the next day or two, and the other two are younger. She was visited by her daughter, who is about 8 or 10 years old. Says she and her get along. Says she has plenty of support from her parents and her family. One of her brothers apparently is in the police force here locally. She denies that she misuses medicines or that she runs out of them sooner than expected. Acknowledges may have taken extra pills, more than two, inadvertently or accidentally, but later suggests that she is quite confident she only took two pills. Denies taking any oxycodone or any Ativan. According to the note by the nurse, August 23, Ambien were missing from the bottle, one Ativan was missing, and the entire bottle of oxycodone was empty. A later note by the resident suggested that she had apparently only taken oxycodone and, in fact, had stated that she had. Again, this adds to the discrepancy and the confusion. She denies that she runs out of her medicines sooner than expected or that she has had difficulties with the narcotic analgesics, but there is some indication, in reviewing the chart, there have been periods when there has been concern expressed regarding dependence and the possible misuse. She was seen by Gayle Boykin during her stay here as well. For background information and mental status at the time of Dr. Thomas's evaluation, please see her summary. MENTAL STATUS EXAMINATION: She is sitting up in bed. She is neat. She is cooperative. She displays good eye contact. Speech is spontaneous. No formal thought disorder. Displays no agitation. No psychomotor retardation. Coherent. Affect broad. At times quite tearful, but reconstitutes relatively easily, particularly when we discuss the clinical picture seen a few days ago and the confused story regarding the medicines. She denies any suicidal thoughts or intents. No homicidal ideas or intents. Currently there is no evidence of any psychosis. Her sensorium is clear. No fluctuation of consciousness. She is alert and oriented to time, place, and person. Intellect is average. Judgment is good at present. Insight is fair. ASSESSMENT: 1. Delirium. 2. Other specified depressive disorder. 3. Other specified anxiety disorder. 4. Rule out opioid use disorder. She currently denies any suicidal thoughts or intents. No homicidal ideas or intents either, and there is no evidence of any psychosis nor of any delirium. She is future oriented. The explanation for the agitation and confusion of 5 days ago remains incomplete, but the possibilities of intentional overdose, an accidental one, and an impulsive one, are all to be considered. The clinical picture of the event of 5 days ago is probably not in keeping with an extra 20 mg of Ambien, when 14 other pills are missing. There is some questions, per the record, that she had used oxycodone as well. No toxicology, as gar as I am aware, was done at the time. The patient, however, insists she did not take anything else. No oxycodone nor lorazepam. There remain, therefore, discrepancies in the narrative, but currently she is not in imminent danger of harming herself. Has a supportive , parents, family. Collateral information was obtained from the as well. RECOMMENDATIONS: At this point, she does not require inpatient psychiatric hospitalization. She may followup with her outpatient psychiatrist, Dr. Womack, upon discharge. Has an appointment on September 19, but I would suggest that it is brought up sooner. She should only have access to a day's worth of medicines at a time for the next 2 weeks or so. Her is willing and able to do that with the patient's mother to monitor that. Patient agrees to that (they have a locked box, which is used for keeping the oxycodone). Reassessed the indications for the narcotic analgesics, the Ambien, and the lorazepam, and monitor for misuse. At future hospitalizations, should they occur, monitor for medicines brought in from home. Thank you for the consult. My assessment is discussed with the patient, her , and Dr. Farfan. The assessment took 60 minutes. If there are any questions please call.
--- NOTE | 2017-10-01 23:44 | DSES ---
DATE OF ADMISSION: 08/21/2017 DATE OF DISCHARGE: 08/28/2017 (Patient left AMA) ATTENDING DOCTOR: Dr. Farfan Patient left against medical advice (AMA) ADMISSION DIAGNOSES: 1. Ileus versus partial small bowel obstruction. 2. Chronic abdominal pain. 3. Malnutrition. 4. Dehydration. 5. Elevated lactic acid on admission. DISCHARGE DIAGNOSES: 1. Ileus versus partial small bowel obstruction. 2. Superficial thrombophlebitis with a history of protein S deficiency. 3. Melenic stool and coffee-ground emesis with chronic anemia secondary to iron deficiency anemia. 4. Possible suicidal attempt. 5. Chronic abdominal pain with chronic opiate therapy. 6. Dehydration, malnutrition due to gastric bypass. 7. Elevated lactic acid secondary to dehydration. 8. Depression. CONSULTANTS: General Surgery, Dr. Robertson Vascular Surgery, Dr. Trevizo Psychiatry, Dr. Luke and Dr. Thomas PROCEDURES AND IMAGING: On 08/21/2017, the patient had a portable chest x-ray that shows negative portable chest. On Saturday, the patient had an abdominal CT of the abdomen and pelvis with IV contrast only, shows status post cholecystectomy and gastric bypass, and the patient was also status post hysterectomy. There are multiple dilated loops of small bowel. May represent ileus versus early or partial small bowel obstruction. On 08/22/2017, the patient had an abdominal x-ray and shows no bowel distention, previous small bowel distention has resolved. On 08/25/2017, the patient had no evidence of deep venous thrombosis in the upper extremity venous vasculature. Superficial vessel in antecubital. There was thrombus with echogenicity, inflamed tissue surrounding consistent with thrombophlebitis. HISTORY OF THE PRESENT ILLNESS: Per admitting physician from prior emergency room visits and to the admitting physician's clinic and she had chronic abdominal complaints, including abdominal pain, nausea and vomiting after she had gastric bypass, and it got to the point that the pain was so severe that she was considering gastric bypass reversed. And she was telling admitting physician that she went to [facility]. However, upon their evaluation, she was not a candidate for reversal of gastric bypass. The patient has chronic abdominal pain at baseline, and she was chronically on high-dose narcotics and she would report constipation, chronically nauseated and takes Phenergan suppository as she cannot hold any pills. She also gained some weight since the last time admitting physician saw her 3 years ago, and the present episode was sudden and she started having severe cramps, generalized abdominal pain at about 10 in the morning followed by multiple bouts of retching and vomiting up until about 2 in the afternoon with continued pain. She then presented herself to the emergency room and was evaluated there. She denies any sick contact or any other family member with similar symptoms. No recent travel. No intake of raw food, seafood, and she denies any prior episode of small bowel obstruction. She has had multiple surgeries that may predispose her to adhesive small bowel obstruction, however. And on the day of admission, the patient was initially admitted to surgery service, and at that time, she refused nasogastric (NG) tube. In addition, she was placed on intravenous (IV) fluid for hydration and she was started on Dilaudid and stopping her other narcotic pain medications. On the next day, the patient intentionally took 14 pills of Ambien and reportedly a half a bottle of her oxycodone acetaminophen pain medication. It was felt to be a possible suicidal attempt, and the patient was having problems walking and was also confused. Therefore, a rapid assessment was called, and hospitalist at this point was involved in patient's care, and the patient was transferred to the intensive care unit (ICU) to monitor for the overdose. She was given activated charcoal as well as Narcan for reversal of the overdose. The patient was very drowsy overnight and over the next few days, the patient's possible ileus and partial small bowel obstruction continued to improve, and psychiatry at this point was consulted. The patient was placed on one-on-one and monitored for possible suicidal attempt. It was later on found that the medication she drank was actually only oxycodone without acetaminophen. She drank half of the 500 mg of liquid oxycodone. The patient continued to improve. The patient continued to have abdominal pain; however, patient was able to tolerate diet. However, she developed superficial thrombophlebitis while she was in the hospital, and Dr. Trevizo was consulted and recommended warm compression and augmenting. The patient's superficial thrombophlebitis continued to improve somewhat. On the day the patient left against medical advice, the patient was also seen by psychiatrist, Dr. Luke, to reevaluate her possible suicidal attempt. Per Dr. Luke, she also denied suicidal thoughts and she does have an appointment with her psychiatrist, however, outpatient, Dr. Womack, upon discharge and already has an appointment on 09/19/2017. It was suggested that once the patient goes home, the patient will stay with her mother to monitor her for possible suicidal attempt. However, on the same day, the patient decided to leave AMA. DISCHARGE CONDITION: Stable, discharged to home. Patient did leave AMA, however. DISCHARGE MEDICATIONS: Her home medications, including: - carisoprodol 350 mg by mouth three times a day as needed - Fentanyl 50 mcg topically every 3 days - fluoxetine 20 mg by mouth daily - Keppra 500 mg one tablet by mouth twice a day - lorazepam 1 mg by mouth every 6 hours as needed - Zofran 8 mg one tablet by mouth every 8 hours as needed - oxycodone 15 mg by mouth every 6 hours as needed - oxycodone 10 mg by mouth every 6 hours as needed - Phenergan 25 mg per rectal as needed - Zolpidem 10 mg by mouth nightly ADDITIONAL INSTRUCTIONS: Patient should contact her primary care provider herself as soon as possible and monitor her for her thrombophlebitis. In addition, the patient should followup with her psychiatrist as soon as possible as well. Please note that she did leave against medical advice. Patient has been discussed with attending doctor, Dr. Farfan. My faculty preceptor for this patient encounter was physically present during the encounter and was fully available. All aspects of the patient interview, examination, medical decision making process, and medical care plan development were reviewed and approved by the faculty preceptor. The faculty preceptor is aware and concurs with the plan as stated in the body of this note and will attest to such by his/her cosignature.
== END 2017-08-28 18:25 | disposition left against medical advice (07) | DRG 247 ==
LOC: M ED 13:13 → M ED INP 18:06 → M MSPAV 20:10 → M ICU 08-23 18:20 → M MSPAV 08-24 03:07
PROVIDERS: ADMIT Surgery; ATTEND Surgery
PROC: 30253N1 (ICD-10-PCS; principal; 2017-08-24)
DX: K56.609 Unspecified intestinal obstruction, unspecified as to partial versus complete obstruction (principal); E87.2 Acidosis; D68.59 Other primary thrombophilia; E46 Unspecified protein-calorie malnutrition; I80.8 Phlebitis and thrombophlebitis of other sites; K59.00 Constipation, unspecified; F32.9 Major depressive disorder, single episode, unspecified; E86.0 Dehydration; D50.9 Iron deficiency anemia, unspecified; E87.6 Hypokalemia; F11.10 Opioid abuse, uncomplicated; F41.9 Anxiety disorder, unspecified; Z79.891 Long term (current) use of opiate analgesic; Z88.2 Allergy status to sulfonamides; Z79.899 Other long term (current) drug therapy; Z98.84 Bariatric surgery status; Z87.442 Personal history of urinary calculi; Z86.14 Personal history of Methicillin resistant Staphylococcus aureus infection; Z90.49 Acquired absence of other specified parts of digestive tract; Z88.8 Allergy status to other drugs, medicaments and biological substances; Z91.018 Allergy to other foods; Z62.810 Personal history of physical and sexual abuse in childhood; T40.2X4A Poisoning by other opioids, undetermined, initial encounter; T42.6X4A Poisoning by other antiepileptic and sedative-hypnotic drugs, undetermined, initial encounter; Y92.239 Unspecified place in hospital as the place of occurrence of the external cause

== ENCOUNTER → 2017-09-20 | Outpatient (CLI) | payer BC, OTHER ==
[~2017-09-20] MED LIST changes: +CARI350T PO; +FENT50PA TD; +FLUO20SO PO; +LORA1TAB12 PO; +ONDA8TAB8 PO; +PHEN1SUP6 PR; +ZOLP10TA2 PO
--- NOTE | 2017-09-21 00:19 | ECWPNPC ---
PATIENT NAME: NI RICHMOND : 1980 GENDER: FEMALE VISIT DATE: 09/20/2017 DISCHARGE DATE: 09/20/17 0000 VISIT LOCKED DATE TIME: PHYSICIAN: LUIS BRANDON RESOURCE: LUIS BRANDON REASON FOR APPOINTMENT 1. STOMACH HISTORY OF PRESENT ILLNESS HISTORY OF PRESENT ILLNESS: PAIN THE PATIENT DESCRIBES THE PAIN... FALL RISK SCREENING: SCREENING :NO FALLS IN THE PAST YEAR TODAY'S VISIT: NOTES: HOSP 08/21/17 THROUGH 08/28/17. . CURRENT MEDICATIONS TAKING ZOLPIDEM TARTRATE 10 MG TABLET 1 TABLET AT BEDTIME NEEDED ORALLY BEFORE BEDTIME MDD=1 TAKING FLUOXETINE 1 TAB 20 MG ORALLY DAILY TAKING KEPPRA 500 MG TABLET ORALLY TWICE A DAY TAKING SOMA 350 MG TABLET 1 TABLET ORALLY THREE TIMES A DAY NEEDED FOR SPASM MDD=3 TAKING ZOFRAN ODT 8 MG TABLET DISPERSIBLE DIRECTED ORALLY Q 6 HRS PRN NAUSEA TAKING ATIVAN 1 MG TABLET 1 TAB ORALLY UP TO 3 TIMES A DAY NEEDED TAKING PROMETHAZINE HCL 25 MG TABLET 1 TABLET NEEDED ORALLY Q 6 HRS PRN NAUSEA TAKING ZOLPIMIST 5 MG/ACT SOLUTION 1 SPRAY AT BEDTIME NEEDED ORALLY BEFORE BEDTIME TAKING FENTANYL 50 MCG/HR PATCH 72 HOUR 1 PATCH TO SKIN TRANSDERMAL APPLY 1 PATCH EVERY 72 HRS. REMOVE OLD PATCH AT THIS TIME. MDD=1REQUEST ACTAVIS BRAND TAKING OXYCODONE HCL 5 MG/5ML SOLUTION 5 ML -1O ML NEEDED ORALLY EVERY 6 HRS PRN PAIN MDD=40 ML/DAY TAKING CARAFATE 1 GM/10ML SUSPENSION 10 ML ORALLY FOUR TIMES DAILY TAKING OXYCODONE HCL 15 MG TABLET 1 TABLET NEEDED ORALLY EVERY 6-8 HOURS PRN PAIN MDD=3 TAKING PROMETHAZINE HCL 25 MG SUPPOSITORY 1 SUPPOSITORY NEEDED RECTAL EVERY Q 8 HRS PRN NAUSEA NOT-TAKING OXYCODONE HCL 10 MG TABLET 1 TABLET NEEDED ORALLY EVERY 6 HRS PRN PAIN MDD=4 NOT-TAKING ROCEPHIN 1 GM SOLUTION RECONSTITUTED INJECTION EVERY DAY NOT-TAKING EFFEXOR XR 75 MG CAPSULE EXTENDED RELEASE 24 HOUR 1 CAPSULE WITH FOOD ORALLY ONCE A DAY, NOTES: IS TAPERING OFF THIS MED NOT-TAKING ABILIFY 10 MG TABLET 1 TABLET ORALLY ONCE A DAY NOT-TAKING BENTYL 10 MG CAPSULE 1 CAPSULE ORALLY FOUR TIMES A DAY NOT-TAKING FLUOXETINE NOT-TAKING CYCLOBENZAPRINE HCL 10 MG TABLET 1 TABLET ORALLY THREE TIMES A DAY NOT-TAKING SOMA 350 MG TABLET 2 TABLET NEEDED ORALLY 2 TIMES A DAY MEDICATION LIST REVIEWED AND RECONCILED WITH THE PATIENT PAST MEDICAL HISTORY DEPRESSION/ANXIETY HYDRATION ISSUES HX OF MRSA BACK PROBLEM ALLERGIES SULFA (FOR ALLERGY USE ONLY): ANAPHYLAXIS: ALLERGY NSAIDS: GI BLEED: CONTRAINDICATION SOCIAL HISTORY GENERAL: TOBACCO USE ARE YOU A: NONSMOKER . 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 0. PAIN CLINIC PFS, CLERGY, PUBLIC HEALTH REFERRALS PFS REFERRAL NEEDED?NO CLERGY REFERRAL NEEDED?NO PUBLIC HEALTH REFERRAL NEEDED?NO WAS THE PROVIDER NOTIFIED OF ANY PERTINENT INFO?NO HAS THE PATIENT BEEN EDUCATED REGARDING HIS/HER PLAN OF CARE?YES HAS THE PATIENT BEEN EDUCATED REGARDING PAIN, THE RISK FOR PAIN, THE IMPORTANCE OF EFFECTIVE PAIN MANAGEMENT, AND THE PAIN ASSESSMENT PROCESS?YES ADVANCE DIRECTIVES HEALTH CARE PROXY?YES NAME OF HCP GARTH RICHMOND DO YOU HAVE A COPY WITH YOU?NO DO YOU HAVE A DNR?YES DO YOU HAVE A COPY WITH YOU?NO REVIEW OF SYSTEMS REVIEWED BY: PROVIDER: . CONSTITUTIONAL: ANY CHANGE IN YOUR MEDICAL CONDITION? Aug BLOOD TRANSFUSION FOR 3.2 HGB (UP TO 5.8 AFTER TRANSFUSION) . CHILLS NO . FEVER NO . INFECTION: DO YOU HAVE NEW INFECTIONS? NO . DO YOU HAVE HISTORY OF MRSA? NO . MUSCULOSKELETAL: ANY NEW PATTERNS OF PAIN OR NUMBNESS? NO . GASTROENTEROLOGY: ANY NEW CHANGE IN BOWEL CONTROL? NO . GENITOURINARY: ANY NEW CHANGE IN BLADDER CONTROL? NO . IS THERE A CHANCE YOU COULD BE ? NO . HEMATOLOGY/LYMPH: DO YOU TAKE ANY BLOOD THINNERS? (FOR EXAMPLE- COUMADIN, PLAVIX, AGGRENOX, PLATEL, PRADAXA, OR XARELTO) NO . WHEN WAS YOUR LAST DOSE? DATE: TIME: . NEUROLOGY: HAVE YOU FALLEN IN THE PAST 6 MONTHS? NO . ANY NEW EXTREMITY NUMBNESS OR WEAKNESS? NO . CARDIOLOGY: DO YOU HAVE A PACEMAKER OR DEFIBRILLATOR? NO . RESPIRATORY: HAVE YOU BEEN SICK IN THE PAST WEEK? NO . FEVER NO . FLU LIKE SYMPTOMS? NO . COUGH NO . INTEGUMENTARY: DO YOU HAVE ANY RASHES OR OPEN SORES? NO . ALLERGIC/IMMUNO: ARE YOU ALLERGIC TO SHELLFISH OR IV DYE? NO . ANY NEW ALLERGIES? NO . PSYCHIATRIC: DO YOU HAVE THOUGHTS OF HURTING YOURSELF OR SOMEONE ELSE? NO . ARE YOU ABUSED, NEGLECTED, OR IN AN UNSAFE ENVIRONMENT? NO . ENDOCRINOLOGY: ARE YOU DIABETIC? NO . OTHER: DO YOU NEED ANY PRESCRIPTIONS? YES . IF YES, PLEASE LIST: FENTANYL PATCHES . ANY NEW PROBLEMS WITH YOUR MEDICATIONS? NO . WHEN DID YOU LAST EAT? ____ . WHEN DID YOU LAST DRINK? ____ . WHAT DID YOU LAST DRINK? ____ . NAME OF PERSON DRIVING YOU HOME? ____ . DO YOU HAVE ANY OTHER QUESTIONS OR CONCERNS NO . VITAL SIGNS WT 135 LBS, HT 66 IN, BMI 21.79 INDEX, BP 141/66 MM HG, HR 114 /MIN, RR 18 /MIN, TEMP 97.4 F, OXYGEN SAT % 100%, NA INITIALS SC 09:47, REVIEWED BY: NL. EXAMINATION GENERAL EXAMINATION: PSYCHSEATED COMFORTABLY IN EXAM ROOM. COLOR PINK.. ASSESSMENTS EPIGASTRIC PAIN - R10.13 (PRIMARY) CHRONICALLY ON OPIATE THERAPY - Z79.899 TREATMENT EPIGASTRIC PAIN NOTES: ON ARRIVAL PT REPORTS THAT SHE FORGOT HER MEDICATIONS. WILL DO URINE FOR TOXICOLOGY. ARRANGEMENT S MADE FOR PATIENT TO RETURN TO CLINIC AT 1545 WITH HER MEDS TO COMPLETE THE VISIT. OF 1620 PT IS NOT HERE. PROCEDURE CODES FA211 ESTABILISHED PATIENT [facility] CHARGE DISPOSITION & COMMUNICATION FOLLOW UP RESCHED (REASON: EPIGASTRIC PAIN) ELECTRONICALLY SIGNED BY RYLEY CROOK ON 09/20/2017 AT 04:23 PM EST DISCLAIMER : THIS IS A VISIT SUMMARY EXTRACTED FROM THE [employer] CHART. IT IS NOT A COPY OF THE [employer] PROGRESS NOTE. HAILEY
== END ==
LOC: M PAIN 09:45
PROVIDERS: ATTEND Nurse Practitioner Family
DX: G89.29 Other chronic pain (principal); R10.13 Epigastric pain; F32.9 Major depressive disorder, single episode, unspecified; F41.9 Anxiety disorder, unspecified; Z88.2 Allergy status to sulfonamides; Z88.6 Allergy status to analgesic agent; Z79.891 Long term (current) use of opiate analgesic; Z79.899 Other long term (current) drug therapy

== ENCOUNTER 2017-09-29 19:48 | Emergency (ER) | payer BC, OTHER ==
[~2017-09-29] VITALS: Ht 167.6 cm; Wt 78.1 kg
[2017-09-29] MEDS ORDERED: MORPHINE 4 MG/ML 1ML SYRINGE IV ONE (20:30)
[2017-09-29] MEDS ORDERED: PROMETHAZINE INJ 25 MG/ML VIAL (J2550) IV ONE (20:45)
[2017-09-29 21:57] VITALS: BP 122/60
[2017-09-29] MEDS ORDERED: NORCO 5/325MG TABLET (BULK FOR ED) PO ONE (22:00)
== END 2017-09-29 22:13 | disposition home or self-care (01) ==
LOC: EDBD 19:48 → M ED 19:48
DX: R10.9 Unspecified abdominal pain (principal); G89.29 Other chronic pain; R56.9 Unspecified convulsions; K90.89 Other intestinal malabsorption; F11.90 Opioid use, unspecified, uncomplicated; Z79.899 Other long term (current) drug therapy; Z88.2 Allergy status to sulfonamides; Z88.8 Allergy status to other drugs, medicaments and biological substances; Z91.018 Allergy to other foods; Z66 Do not resuscitate; Z98.0 Intestinal bypass and anastomosis status

== ENCOUNTER → 2017-10-01 | Outpatient (CLI) | payer OTHER | LOC: M PAIN 11:00 | DX: G89.29 Other chronic pain (principal); R10.13 Epigastric pain; F41.9 Anxiety disorder, unspecified; F32.9 Major depressive disorder, single episode, unspecified; Z79.891 Long term (current) use of opiate analgesic; Z86.14 Personal history of Methicillin resistant Staphylococcus aureus infection; Z88.2 Allergy status to sulfonamides; Z79.899 Other long term (current) drug therapy; Z88.6 Allergy status to analgesic agent | CPT/HCPCS: G0463 ==

== ENCOUNTER → 2017-10-08 | Outpatient (CLI) | payer BC, OTHER ==
--- NOTE | 2017-10-09 00:09 | ECWPNPC ---
PATIENT NAME: NI RICHMOND : 1980 GENDER: FEMALE VISIT DATE: 10/08/2017 DISCHARGE DATE: 10/08/17 0935 VISIT LOCKED DATE TIME: PHYSICIAN: LUIS BRANDON RESOURCE: LUIS BRANDON REASON FOR APPOINTMENT 1. 1 WEEK HISTORY OF PRESENT ILLNESS HISTORY OF PRESENT ILLNESS: PAIN THE PATIENT DESCRIBES THE PAIN... FALL RISK SCREENING: SCREENING :NO FALLS IN THE PAST YEAR TODAY'S VISIT: NOTES: RATES PAIN LEVEL TODAYA S 04/29. PAIN IS CENTERED IN MID ABDOMEN. DESCRIBES THE PAIN CONSTANT AND ACHING. EVERYTHING SEEMS TO BE SETTING OFF THE SYMPTOMS. IS HAVING LOTS OF DIARRHEA AND DIARRHEA.STATES SLEEP HAS BEEN VERY POOR. . CURRENT MEDICATIONS TAKING FLUOXETINE 1 TAB 20 MG ORALLY DAILY TAKING KEPPRA 500 MG TABLET ORALLY TWICE A DAY TAKING ZOFRAN ODT 8 MG TABLET DISPERSIBLE DIRECTED ORALLY Q 6 HRS PRN NAUSEA TAKING PROMETHAZINE HCL 25 MG TABLET 1 TABLET NEEDED ORALLY Q 6 HRS PRN NAUSEA TAKING CARAFATE 1 GM/10ML SUSPENSION 10 ML ORALLY FOUR TIMES DAILY TAKING PROMETHAZINE HCL 25 MG SUPPOSITORY 1 SUPPOSITORY NEEDED RECTAL EVERY Q 8 HRS PRN NAUSEA TAKING LASIX 20 MG TABLET 1 TABLET ORALLY TWICE A DAY TAKING FENTANYL 12 MCG/HR PATCH 72 HOUR 1 PATCH TO SKIN TRANSDERMAL APPLY 1 PATCH EVERY 72 HRS. REMOVE OLD PATCH AT THIS TIME. MDD=1REQUEST [employer] BRAND TAKING AMBIEN CR 12.5 MG TABLET EXTENDED RELEASE 1 TABLET AT BEDTIME NEEDED ORALLY ONCE A DAY NOT-TAKING ZOLPIDEM TARTRATE 10 MG TABLET 1 TABLET AT BEDTIME NEEDED ORALLY BEFORE BEDTIME MDD=1 NOT-TAKING ATIVAN 1 MG TABLET 1 TAB ORALLY UP TO 3 TIMES A DAY NEEDED MEDICATION LIST REVIEWED AND RECONCILED WITH THE PATIENT PAST MEDICAL HISTORY DEPRESSION/ANXIETY HYDRATION ISSUES HX OF MRSA BACK PROBLEM ALLERGIES SULFA (FOR ALLERGY USE ONLY): ANAPHYLAXIS: ALLERGY NSAIDS: GI BLEED: CONTRAINDICATION SURGICAL HISTORY BACK SURGERY DR SU DECOMPRESSION SURGERY 08/2013 TONSILS GASTRIC BYPASS 2008 ENDOMETRIAL ABLATION HYSTERECTOMY HUBBARD CATHETER 05/21/2014 RIGHT LEG WOUND DRAINED-DESIREE 04/2017 SOCIAL HISTORY GENERAL: TOBACCO USE ARE YOU A: NONSMOKER . 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 0. PAIN CLINIC PFS, CLERGY, PUBLIC HEALTH REFERRALS PFS REFERRAL NEEDED?NO CLERGY REFERRAL NEEDED?NO PUBLIC HEALTH REFERRAL NEEDED?NO WAS THE PROVIDER NOTIFIED OF ANY PERTINENT INFO?NO HAS THE PATIENT BEEN EDUCATED REGARDING HIS/HER PLAN OF CARE?YES HAS THE PATIENT BEEN EDUCATED REGARDING PAIN, THE RISK FOR PAIN, THE IMPORTANCE OF EFFECTIVE PAIN MANAGEMENT, AND THE PAIN ASSESSMENT PROCESS?YES ADVANCE DIRECTIVES HEALTH CARE PROXY?YES NAME OF HCP GARTH MARIELOSMELISSA DO YOU HAVE A COPY WITH YOU?NO DO YOU HAVE A DNR?YES DO YOU HAVE A COPY WITH YOU?NO HOSPITALIZATION/MAJOR DIAGNOSTIC PROCEDURE RELATED TO SURGERY REVIEW OF SYSTEMS REVIEWED BY: PROVIDER: . CONSTITUTIONAL: ANY CHANGE IN YOUR MEDICAL CONDITION? NO . CHILLS NO . FEVER NO . INFECTION: DO YOU HAVE NEW INFECTIONS? NO . DO YOU HAVE HISTORY OF MRSA? NO . MUSCULOSKELETAL: ANY NEW PATTERNS OF PAIN OR NUMBNESS? NO . GASTROENTEROLOGY: GENERAL FREQ NAUSEA/ VOMITING AND DIARRHEA. IS NOT KEEPING MUCH DOWN INCLUDING MEDS . ANY NEW CHANGE IN BOWEL CONTROL? NO . GENITOURINARY: ANY NEW CHANGE IN BLADDER CONTROL? NO . IS THERE A CHANCE YOU COULD BE ? NO . HEMATOLOGY/LYMPH: DO YOU TAKE ANY BLOOD THINNERS? (FOR EXAMPLE- COUMADIN, PLAVIX, AGGRENOX, PLATEL, PRADAXA, OR XARELTO) NO . WHEN WAS YOUR LAST DOSE? DATE: TIME: . NEUROLOGY: HAVE YOU FALLEN IN THE PAST 6 MONTHS? NO . ANY NEW EXTREMITY NUMBNESS OR WEAKNESS? NO . CARDIOLOGY: DO YOU HAVE A PACEMAKER OR DEFIBRILLATOR? NO . RESPIRATORY: HAVE YOU BEEN SICK IN THE PAST WEEK? NO . FEVER NO . FLU LIKE SYMPTOMS? NO . COUGH NO . INTEGUMENTARY: DO YOU HAVE ANY RASHES OR OPEN SORES? NO . ALLERGIC/IMMUNO: ARE YOU ALLERGIC TO SHELLFISH OR IV DYE? NO . ANY NEW ALLERGIES? NO . PSYCHIATRIC: DO YOU HAVE THOUGHTS OF HURTING YOURSELF OR SOMEONE ELSE? NO . ARE YOU ABUSED, NEGLECTED, OR IN AN UNSAFE ENVIRONMENT? NO . ENDOCRINOLOGY: ARE YOU DIABETIC? NO . OTHER: DO YOU NEED ANY PRESCRIPTIONS? NO . IF YES, PLEASE LIST: ____ . ANY NEW PROBLEMS WITH YOUR MEDICATIONS? NO . WHEN DID YOU LAST EAT? ____ . WHEN DID YOU LAST DRINK? ____ . WHAT DID YOU LAST DRINK? ____ . NAME OF PERSON DRIVING YOU HOME? ____ . DO YOU HAVE ANY OTHER QUESTIONS OR CONCERNS NO . VITAL SIGNS WT 143.2 LBS, HT 66 IN, BMI 23.11 INDEX, BP 151/76 MM HG, HR 97 /MIN, RR 16 /MIN, TEMP 97.8 F, OXYGEN SAT % 100%, NA INITIALS TL 0840, REVIEWED BY: LS. EXAMINATION GENERAL EXAMINATION: GENERAL APPEARANCE:COLOR PINE WITH BLOTCHY RASH NOTED ON CHEST . PSYCHALERT , ORIENTED X 3 , APPROPRIATE MOOD AND AFFECT . LUNGS:CLEAR TO AUSCULTATION BILATERALLY . HEART:HEART RATE REGULAR, RAPID . ABDOMEN:SOFT, NON-DISTENDED. TENDER IN EPIGASTRIC REGION. BOWEL SOUNDS PRESENT BUT QUIET . SKIN:FENTANYL 12 MCG PATCH PRESENT LEFT ANTERIOR CHEST WALL. NO RASH OR SKIN IRRITATION UNDER PATCH . NEUROLOGIC EXAM:CN'S II-XII GROSSLY INTACT. INTERMITTANT TONIC CONTRACTURE OF LEFT FACIAL MUSCLES NOTED.. ASSESSMENTS EPIGASTRIC PAIN - R10.13 (PRIMARY) CHRONICALLY ON OPIATE THERAPY - Z79.899 TREATMENT EPIGASTRIC PAIN NOTES: CONTINUE WITH FENTANYL PATCH 12 MCG - ONE PATCH EVERY 3 DAYS AND THEN STOP WHEN PATCHS GONE. CONSIDER MEDICAL MARIJUANA OR DORSAL COLUMN STIMULATOR FOR FUTURE PAIN CONTROL , ALL ORAL MEDS TO COME FROM GASTROENTEROLOGY OR DR RAMOS, PSYCHIATRIST. CLINICAL NOTES: ISTOP REGISTRY REVIEWED AND DEMNOSTRATES COMPLLIANCE. (REF # [id number]) BRINGS IN MEDICATIONS WHICH IS APPROPRIATE FOR WHAT WAS DISPENSED. RECENT URINE TOXICOLOGY REVIEWED. NO UNAUTHORIZED MEDICATIONS. NO ILLICIT SUBSTANCES. THERE WAS A LOW LEVEL OF FENTANYL AND OXYCODONE AND THERE WAS NO EVIDENCE OF SOMA, LORAZEPAM OR ATIVAN. THIS WAS REVIEWED WITH PT AND HER .AFTER CAREFUL CONSIDERATION I WILL NOT CONTINUE WITH ANY ORAL MEDICATIONS AND WITH NO OPIODS. DISCUSSED OPTION OF MEDICAL MARIJUANA AND/DORSAL COLUMN STIM. INFORMATION GIVEN ON THESE THERAPIES. WILL DISCUSS FURTHER AT NEXT VISIT. PROCEDURE CODES FA211 ESTABILISHED PATIENT [facility] FACILITY CHARGE DISPOSITION & COMMUNICATION FOLLOW UP 2-3 WEEKS (REASON: ABD PAIN) ELECTRONICALLY SIGNED BY RYLEY CROOK ON 10/08/2017 AT 11:06 AM EST DISCLAIMER : THIS IS A VISIT SUMMARY EXTRACTED FROM THE [employer] CHART. IT IS NOT A COPY OF THE [employer] PROGRESS NOTE. HAILEY
== END ==
LOC: M PAIN 08:30
PROVIDERS: ATTEND Nurse Practitioner Family
DX: G89.29 Other chronic pain (principal); R10.13 Epigastric pain; F32.9 Major depressive disorder, single episode, unspecified; F41.9 Anxiety disorder, unspecified; Z88.2 Allergy status to sulfonamides; Z88.6 Allergy status to analgesic agent; Z79.891 Long term (current) use of opiate analgesic; Z79.899 Other long term (current) drug therapy

== ENCOUNTER 2017-10-14 12:55 | Emergency (ER) | payer BC, OTHER ==
[2017-10-14] MEDS: ONDANSETRON 4MG/2ML VIAL (J2405) IV ×2 (13:15→15:05)
[2017-10-14 13:32] LABS: BASO % 0.4 % (0.0-1.0); EOS % 0.5 % (0.0-3.0); IMMATURE GRANULOCYTE % 0.2 % (0-0); LYMPH # 0.9 10^3/uL (1.5-4.5); LYMPH % 10.2 % (24.0-44.0); MEAN CORPUSCULAR HGB CONC 31.1 g/dl (32.0-36.5); MEAN CORPUSCULAR VOLUME 77.3 fl (80.0-96.0); MONO # 0.4 10^3/uL (0.0-0.8); MONO % 4.2 % (0.0-5.0); NEUTROPHILS # 7.2 10^3/uL (1.8-7.7); NEUTROPHILS % 84.5 % (36.0-66.0); PLATELET COUNT, AUTOMATED 360 10^3/uL (150-450); RED CELL DISTRIBUTION WIDTH 20.2 % (11.5-14.5); WHITE BLOOD COUNT 8.5 10^3/uL (4.0-10.0)
[2017-10-14 13:54] LABS: ALBUMIN 4.3 GM/DL (3.2-5.2); ALBUMIN/GLOBULIN RATIO 1.43 (1.00-1.93); ALKALINE PHOSPHATASE 113 U/L (45-117); ALT/SGPT 20 U/L (12-78); ANION GAP 10 MEQ/L (8-16); AST/SGOT 22 U/L (7-37); BILIRUBIN,DIRECT 0.2 MG/DL (0.0-0.2); BILIRUBIN,TOTAL 0.9 MG/DL (0.2-1.0); BLOOD UREA NITROGEN 6 MG/DL (7-18); CALCIUM LEVEL 8.9 MG/DL (8.5-10.1); CARBON DIOXIDE LEVEL 24 MEQ/L (21-32); CHLORIDE LEVEL 111 MEQ/L (98-107); CREATININE FOR GFR 0.67 MG/DL (0.55-1.02); GLOMERULAR FILTRATION RATE > 60.0 (>60); GLUCOSE, FASTING 108 MG/DL (70-105); POTASSIUM SERUM 3.8 MEQ/L (3.5-5.1); SODIUM LEVEL 145 MEQ/L (136-145); TOTAL PROTEIN 7.3 GM/DL (6.4-8.2)
[2017-10-14 13:55] LABS: LACTIC ACID SEPSIS PROTOCOL 1.5 MMOL/L (0.4-2.0)
[2017-10-14] MEDS ORDERED: ISOVUE-370 76% 100ML VIAL (Q9967) As Ordered (13:57)
[2017-10-14] MEDS: PANTOPRAZOLE 40MG INJ (PROTONIX) (C9113) IV (15:05)
[2017-10-14] MEDS: MORPHINE 2 MG/ML 1ML SYRINGE IV (15:05)
[2017-10-14] MEDS: LORazepam 2 MG/ML VIAL (J2060) IV (16:10)
[2017-10-14] MEDS: levETIRAcetam INJection 500 MG in D5W MINI-BAG PLUS 100 ML IV (16:10)
[2017-10-14] MEDS: fentaNYL 12 MCG/HR PATCH TOP (19:08)
[2017-10-14] MEDS: FENTANYL REMOVAL DOCUMENTATION MISC TD (19:18)
[2017-10-14] MEDS: PERCOCET 5MG/325MG TAB PO (19:39)
== END 2017-10-14 19:45 | disposition home or self-care (01) ==
LOC: M ED 12:55
DX: R10.9 Unspecified abdominal pain (principal); F44.9 Dissociative and conversion disorder, unspecified; G40.909 Epilepsy, unspecified, not intractable, without status epilepticus; G89.29 Other chronic pain; G47.00 Insomnia, unspecified; F33.9 Major depressive disorder, recurrent, unspecified; Z79.899 Other long term (current) drug therapy; Z88.8 Allergy status to other drugs, medicaments and biological substances; Z88.2 Allergy status to sulfonamides; Z91.018 Allergy to other foods; Z87.19 Personal history of other diseases of the digestive system; Z86.2 Personal history of diseases of the blood and blood-forming organs and certain disorders involving the immune mechanism; Z98.0 Intestinal bypass and anastomosis status
CPT/HCPCS: C9113

== ENCOUNTER → 2017-10-22 | Outpatient (CLI) | payer OTHER | LOC: M PAIN 14:30 | DX: R10.13 Epigastric pain (principal); F32.9 Major depressive disorder, single episode, unspecified; F41.9 Anxiety disorder, unspecified; Z79.891 Long term (current) use of opiate analgesic; Z79.899 Other long term (current) drug therapy; Z88.2 Allergy status to sulfonamides; Z88.8 Allergy status to other drugs, medicaments and biological substances | CPT/HCPCS: G0463 ==

== ENCOUNTER 2017-11-15 06:22 | Day surgery (SDC) | payer BC, OTHER ==
[2017-11-15] MEDS ORDERED: ERTAPENEM 1 GM INJ (INVanz) (J1335) As Ordered (06:46)
[2017-11-15] MEDS ORDERED: fentaNYL 100 MCG/2 ML INJECTION (J3010) As Ordered (07:09)
[2017-11-15] MEDS ORDERED: MIDAZOLAM INJ 2 MG/2 ML VIAL (J2250) As Ordered (07:09)
[2017-11-15] MEDS: LR 1,000 ML IV (07:30)
[2017-11-15] MEDS: ERTAPENEM SODIUM 1 GM in NS 50 ML IV (07:53)
[2017-11-15] MEDS: BUPIVACAINE HCL 0.25% 30 ML VIAL As Ordered (08:12)
[2017-11-15] MEDS: LIDOCAINE 1% SDV INJ 30 ML VIAL As Ordered (08:12)
[2017-11-15] MEDS: HEPARIN SOD (PORCINE) 5000 UNITS/ML VIAL As Ordered (08:35)
[2017-11-15] MEDS ORDERED: PROPOFOL 200 MG/20 ML VIAL As Ordered (08:38)
[2017-11-15] MEDS ORDERED: LIDOCAINE 2% INJ 100 MG/5 ML SDV (FOR ANES.) As Ordered (08:38)
[2017-11-15] MEDS ORDERED: ePHEDrine INJ 50 MG/ML VIAL As Ordered (08:38)
[2017-11-15] MEDS ORDERED: ONDANSETRON 4MG/2ML VIAL (J2405) As Ordered ×2 (08:39→09:20)
[2017-11-15] MEDS ORDERED: dexameTHASONE 4 MG/ML 1ML VIAL (J1100) As Ordered (08:39)
[2017-11-15] MEDS: THROMBIN SOLN 5,000 UNITS VIAL As Ordered (08:46)
[2017-11-15] MEDS: LIDOCAINE W/EPINEPHRINE 1% 20ML VIAL As Ordered (08:46)
[2017-11-15] MEDS ORDERED: PERCOCET 5MG/325MG TAB As Ordered (09:20)
[2017-11-15] MEDS: PERCOCET 5MG/325MG TAB PO ×2 (09:25→10:13)
[2017-11-15] MEDS: ONDANSETRON 4MG/2ML VIAL (J2405) IV (09:25)
[2017-11-15] MEDS ORDERED: LR 1,000 ML IV (09:30)
[2017-11-15] MEDS ORDERED: NORCO, ANEXSIA 5/325MG TABLET (HYDROcodone/ACETAMINOPHEN) PO (09:30)
== END 2017-11-15 11:00 | disposition home or self-care (01) ==
LOC: M SDC 06:22
DX: Z45.2 Encounter for adjustment and management of vascular access device (principal); M54.9 Dorsalgia, unspecified; G89.29 Other chronic pain; K90.9 Intestinal malabsorption, unspecified; R10.84 Generalized abdominal pain; R11.2 Nausea with vomiting, unspecified; K52.9 Noninfective gastroenteritis and colitis, unspecified; K31.84 Gastroparesis; D64.9 Anemia, unspecified; D68.51 Activated protein C resistance; F41.9 Anxiety disorder, unspecified; F32.9 Major depressive disorder, single episode, unspecified; J45.909 Unspecified asthma, uncomplicated; Z88.1 Allergy status to other antibiotic agents; Z88.2 Allergy status to sulfonamides; Z88.8 Allergy status to other drugs, medicaments and biological substances; Z91.018 Allergy to other foods; Z79.899 Other long term (current) drug therapy; Z98.84 Bariatric surgery status; Z86.718 Personal history of other venous thrombosis and embolism; Z86.14 Personal history of Methicillin resistant Staphylococcus aureus infection; Z90.710 Acquired absence of both cervix and uterus
CPT/HCPCS: 36561

== ENCOUNTER 2017-11-16 09:23 | Emergency (ER) | payer BC, OTHER ==
[2017-11-16] MEDS: MORPHINE 4 MG/ML 1ML SYRINGE IM (10:02)
[2017-11-16] MEDS: PERCOCET 5MG/325MG TAB PO (11:36)
[2017-11-16] MEDS: KETOROLAC 60 MG/2 ML VIAL (J1885) IM (11:36)
== END 2017-11-16 11:52 | disposition home or self-care (01) ==
LOC: M ED 09:23
DX: G89.18 Other acute postprocedural pain (principal); J45.909 Unspecified asthma, uncomplicated; F33.9 Major depressive disorder, recurrent, unspecified; F41.9 Anxiety disorder, unspecified; F11.11 Opioid abuse, in remission; Z79.2 Long term (current) use of antibiotics; Z79.899 Other long term (current) drug therapy; Z88.5 Allergy status to narcotic agent; Z88.8 Allergy status to other drugs, medicaments and biological substances; Z88.1 Allergy status to other antibiotic agents; Z88.2 Allergy status to sulfonamides; Z91.018 Allergy to other foods; Z96.9 Presence of functional implant, unspecified; Z98.0 Intestinal bypass and anastomosis status; Z98.890 Other specified postprocedural states; Z87.19 Personal history of other diseases of the digestive system; Z86.69 Personal history of other diseases of the nervous system and sense organs
CPT/HCPCS: J1885

== ENCOUNTER → 2017-11-28 | Outpatient (CLI) | payer OTHER | LOC: M PAIN 09:45 | DX: R10.13 Epigastric pain (principal); F32.9 Major depressive disorder, single episode, unspecified; F41.9 Anxiety disorder, unspecified; Z79.899 Other long term (current) drug therapy; Z88.2 Allergy status to sulfonamides; Z88.6 Allergy status to analgesic agent; Z88.8 Allergy status to other drugs, medicaments and biological substances | CPT/HCPCS: G0463 ==

== ENCOUNTER 2017-11-29 16:28 | Emergency (ER) | payer BC, OTHER ==
[2017-11-29] MEDS: MORPHINE 4 MG/ML 1ML VIAL (J2270) IV ×2 (17:44→18:19)
[2017-11-29] MEDS: ONDANSETRON 4MG/2ML VIAL (J2405) IV (17:44)
[2017-11-29] MEDS: NS 1,000 ML IV (17:44)
[2017-11-29 18:04] LABS: BASO % 0.6 % (0.0-1.0); EOS # 0.2 10^3/uL (0.0-0.50); EOS % 2.7 % (0.0-3.0); HEMATOCRIT 32.9 % (36.0-47.0); HEMOGLOBIN 10.3 g/dl (12.0-16.0); IMMATURE GRANULOCYTE % 0.1 % (0-3.0); LYMPH # 1.4 10^3/uL (1.5-4.5); LYMPH % 19.9 % (24.0-44.0); MEAN CORPUSCULAR HEMOGLOBIN 24.9 pg (27.0-33.0); MEAN CORPUSCULAR HGB CONC 31.3 g/dl (32.0-36.5); MEAN CORPUSCULAR VOLUME 79.7 fl (80.0-96.0); MONO # 0.6 10^3/uL (0.0-0.8); MONO % 7.9 % (0.0-5.0); NEUTROPHILS # 4.9 10^3/uL (1.8-7.7); NEUTROPHILS % 68.8 % (36.0-66.0); PLATELET COUNT, AUTOMATED 315 10^3/uL (150-450); RED BLOOD COUNT 4.13 10^6/uL (4.00-5.40); RED CELL DISTRIBUTION WIDTH 17.5 % (11.5-14.5); WHITE BLOOD COUNT 7.1 10^3/uL (4.0-10.0)
[2017-11-29 18:17] LABS: CONTROL LINE HCG INT CTR LINE PRESENT; HCG, SERUM QUALITATIVE NEGATIVE (NEGATIVE)
[2017-11-29 18:24] LABS: LACTIC ACID SEPSIS PROTOCOL 1.2 MMOL/L (0.4-2.0)
[2017-11-29 18:25] LABS: CPK CREATINE PHOSPHOKINASE 38 U/L (26-192); MB/CK RELATIVE INDEX 2.63 (< OR =4); TROPONIN I < 0.02 NG/ML (< 0.10)
[2017-11-29 18:27] LABS: ALBUMIN 4.2 GM/DL (3.2-5.2); ALBUMIN/GLOBULIN RATIO 1.31 (1.00-1.93); ALKALINE PHOSPHATASE 109 U/L (45-117); ALT/SGPT 22 U/L (12-78); ANION GAP 8 MEQ/L (8-16); AST/SGOT 17 U/L (7-37); BILIRUBIN,DIRECT 0.2 MG/DL (0.0-0.2); BILIRUBIN,TOTAL 0.8 MG/DL (0.2-1.0); BLOOD UREA NITROGEN 11 MG/DL (7-18); CALCIUM LEVEL 9.1 MG/DL (8.5-10.1); CARBON DIOXIDE LEVEL 27 MEQ/L (21-32); CHLORIDE LEVEL 107 MEQ/L (98-107); CREATININE FOR GFR 0.63 MG/DL (0.55-1.30); GLOMERULAR FILTRATION RATE > 60.0 (>60); GLUCOSE, FASTING 93 MG/DL (70-100); LIPASE 261 U/L (73-393); POTASSIUM SERUM 3.8 MEQ/L (3.5-5.1); SODIUM LEVEL 142 MEQ/L (136-145); TOTAL PROTEIN 7.4 GM/DL (6.4-8.2)
[2017-11-29] MEDS: GASTROGRAFIN SOLUTION 30ML PO ×2 (19:27→20:00)
[2017-11-29] MEDS: HYDROmorphone HCL 1 MG/ML SYRINGE (J1170) IV (20:14)
[2017-11-29] MEDS ORDERED: ISOVUE-370 76% 100ML VIAL (Q9967) As Ordered (20:44)
[2017-11-29] MEDS: OXYCODONE/APAP 5MG/325MG(BULK FOR ED) 1 TABLET PO (23:00)
== END 2017-11-29 23:33 | disposition home or self-care (01) ==
LOC: M ED 16:28
DX: R10.9 Unspecified abdominal pain (principal); R11.2 Nausea with vomiting, unspecified; R19.7 Diarrhea, unspecified; M54.9 Dorsalgia, unspecified; G89.29 Other chronic pain; F32.9 Major depressive disorder, single episode, unspecified; F41.9 Anxiety disorder, unspecified; G47.00 Insomnia, unspecified; Z98.84 Bariatric surgery status; Z88.1 Allergy status to other antibiotic agents; Z88.2 Allergy status to sulfonamides; Z88.5 Allergy status to narcotic agent; Z91.018 Allergy to other foods; Z79.899 Other long term (current) drug therapy
CPT/HCPCS: J1170

== ENCOUNTER → 2018-01-08 | Outpatient (REF) | payer OTHER | LOC: M LAB REF 17:08 | DX: Z93.4 Other artificial openings of gastrointestinal tract status (principal) | CPT/HCPCS: 87186 ==

== ENCOUNTER 2018-01-11 16:17 | Inpatient (IN) | payer BC, OTHER ==
[2018-01-11 16:52] LABS: BASO % 0.5 % (0.0-1.0); EOS # 0.4 10^3/uL (0.0-0.50); EOS % 5.2 % (0.0-3.0); HEMATOCRIT 34.3 % (36.0-47.0); HEMOGLOBIN 10.4 g/dl (12.0-16.0); IMMATURE GRANULOCYTE % 0.3 % (0-3.0); LYMPH # 1.8 10^3/uL (1.5-4.5); LYMPH % 24.2 % (24.0-44.0); MEAN CORPUSCULAR HEMOGLOBIN 24.5 pg (27.0-33.0); MEAN CORPUSCULAR HGB CONC 30.3 g/dl (32.0-36.5); MEAN CORPUSCULAR VOLUME 80.7 fl (80.0-96.0); MONO # 0.6 10^3/uL (0.0-0.8); MONO % 7.5 % (0.0-5.0); NEUTROPHILS # 4.7 10^3/uL (1.8-7.7); NEUTROPHILS % 62.3 % (36.0-66.0); PLATELET COUNT, AUTOMATED 392 10^3/uL (150-450); RED BLOOD COUNT 4.25 10^6/uL (4.00-5.40); RED CELL DISTRIBUTION WIDTH 16.4 % (11.5-14.5); WHITE BLOOD COUNT 7.5 10^3/uL (4.0-10.0)
[2018-01-11] MEDS: NS 500 ML IV (17:00)
[2018-01-11] MEDS: ONDANSETRON 4MG/2ML VIAL (J2405) IV (17:06)
[2018-01-11] MEDS: MORPHINE 4 MG/ML 1ML VIAL (J2270) IV (17:07)
[2018-01-11] MEDS: NS 1,000 ML IV (17:07)
[2018-01-11] MEDS ORDERED: ISOVUE-370 76% 100ML VIAL (Q9967) As Ordered (17:16)
[2018-01-11 17:20] LABS: ALBUMIN/GLOBULIN RATIO 1.14 (1.00-1.93); ALKALINE PHOSPHATASE 116 U/L (45-117); ALT/SGPT 22 U/L (12-78); AMYLASE 41 U/L (25-115); ANION GAP 7 MEQ/L (8-16); AST/SGOT 18 U/L (7-37); BILIRUBIN,DIRECT 0.1 MG/DL (0.0-0.2); BILIRUBIN,TOTAL 0.6 MG/DL (0.2-1.0); BLOOD UREA NITROGEN 8 MG/DL (7-18); CALCIUM LEVEL 9.2 MG/DL (8.5-10.1); CARBON DIOXIDE LEVEL 28 MEQ/L (21-32); CHLORIDE LEVEL 105 MEQ/L (98-107); CREATININE FOR GFR 0.66 MG/DL (0.55-1.30); GLOMERULAR FILTRATION RATE > 60.0 (>60); GLUCOSE, FASTING 99 MG/DL (70-100); LIPASE 160 U/L (73-393); POTASSIUM SERUM 4.1 MEQ/L (3.5-5.1); SODIUM LEVEL 140 MEQ/L (136-145); TOTAL PROTEIN 7.5 GM/DL (6.4-8.2)
[2018-01-11 17:21] LABS: LACTIC ACID SEPSIS PROTOCOL 1.2 MMOL/L (0.4-2.0)
[2018-01-11] MEDS: HYDROmorphone HCL 1 MG/ML SYRINGE (J1170) IV ×3 (19:12→22:54)
[2018-01-11] MEDS: CEFTRIAXONE SOD 1 GM in APPROPRIATE DILUENT 1 EA IV (20:42)
[2018-01-12] MEDS: zolPIDEM TARTRATE 5 MG TAB PO ×2 (00:21→20:49)
[2018-01-12] MEDS: PANTOPRAZOLE 40MG INJ (PROTONIX) (C9113) IV ×2 (00:22→20:49)
[2018-01-12] MEDS: MORPHINE 4 MG/ML 1ML VIAL (J2270) IV ×4 (00:27→07:19)
[2018-01-12] MEDS: ONDANSETRON 4MG/2ML VIAL (J2405) IV ×2 (02:39→08:42)
[2018-01-12] MEDS: LORazepam 1 MG TAB PO (02:48)
[2018-01-12] MEDS: CEFAZOLIN SOD 1 GM in APPROPRIATE DILUENT 1 EA IV ×4 (05:00→22:36)
[2018-01-12] MEDS: SUCRALFATE 1 GM TAB PO ×2 (08:18→12:00)
[2018-01-12] MEDS: ENOXAPARIN 40 MG/0.4 ML SYRINGE (J1650) SC (08:21)
[2018-01-12] MEDS: NS 1,000 ML IV ×2 (08:48→20:49)
[2018-01-12] MEDS: HYDROmorphone HCL 1 MG/ML SYRINGE (J1170) IV ×6 (08:52→20:50)
[2018-01-12] MEDS ORDERED: HYDROmorphone HCL 1 MG/ML SYRINGE (J1170) IV (11:00)
[2018-01-12] MEDS: PROMETHAZINE INJ 25 MG/ML VIAL (J2550) IV ×3 (12:40→20:50)
[2018-01-12] MEDS: EMLA CREAM 5GM (LIDOCAINE/PRILOCAINE) TOP (13:15)
[2018-01-12] MEDS: SUCRALFATE SUSP 1GM/10ML UD PO ×2 (17:39→20:49)
[2018-01-12] MEDS ORDERED: MORPHINE SULFATE ORAL SOLN 10 MG/5 ML UD PO (19:15)
[2018-01-12 20:02] LABS: HEMATOCRIT 29.1 % (36.0-47.0); HEMOGLOBIN 8.7 g/dl (12.0-16.0); MEAN CORPUSCULAR HEMOGLOBIN 24.5 pg (27.0-33.0); MEAN CORPUSCULAR HGB CONC 29.9 g/dl (32.0-36.5); PLATELET COUNT, AUTOMATED 342 10^3/uL (150-450); RED BLOOD COUNT 3.55 10^6/uL (4.00-5.40); RED CELL DISTRIBUTION WIDTH 16.1 % (11.5-14.5); WHITE BLOOD COUNT 6.3 10^3/uL (4.0-10.0)
[2018-01-12 20:29] LABS: ALBUMIN 3.3 GM/DL (3.2-5.2); ALBUMIN/GLOBULIN RATIO 1.22 (1.00-1.93); ALKALINE PHOSPHATASE 89 U/L (45-117); ALT/SGPT 15 U/L (12-78); ANION GAP 8 MEQ/L (8-16); AST/SGOT 12 U/L (7-37); BILIRUBIN,TOTAL 0.3 MG/DL (0.2-1.0); BLOOD UREA NITROGEN 4 MG/DL (7-18); CALCIUM LEVEL 7.9 MG/DL (8.5-10.1); CARBON DIOXIDE LEVEL 28 MEQ/L (21-32); CHLORIDE LEVEL 110 MEQ/L (98-107); CREATININE FOR GFR 0.65 MG/DL (0.55-1.30); GLOMERULAR FILTRATION RATE > 60.0 (>60); GLUCOSE, FASTING 90 MG/DL (70-100); POTASSIUM SERUM 3.8 MEQ/L (3.5-5.1); SODIUM LEVEL 146 MEQ/L (136-145)
[2018-01-12 20:31] LABS: LACTIC ACID SEPSIS PROTOCOL 1.4 MMOL/L (0.4-2.0)
[2018-01-12] MEDS: FLUoxetine 20 MG CAP PO (20:49)
[2018-01-13] MEDS: ONDANSETRON 4MG/2ML VIAL (J2405) IV (01:17)
[2018-01-13] MEDS: HYDROmorphone HCL 1 MG/ML SYRINGE (J1170) IV ×5 (01:18→18:39)
[2018-01-13] MEDS: CEFAZOLIN SOD 1 GM in APPROPRIATE DILUENT 1 EA IV (06:07)
[2018-01-13] MEDS: SUCRALFATE SUSP 1GM/10ML UD PO ×4 (08:46→20:15)
[2018-01-13] MEDS: FLUoxetine 20 MG CAP PO (08:46)
[2018-01-13] MEDS: ENOXAPARIN 40 MG/0.4 ML SYRINGE (J1650) SC (08:46)
[2018-01-13] MEDS: oxyCODONE 5MG TAB PO ×2 (09:55→20:56)
[2018-01-13] MEDS: CEFDINIR 300 MG CAP (OMNICEF) PO ×2 (09:55→20:15)
[2018-01-13] MEDS: PROMETHAZINE INJ 25 MG/ML VIAL (J2550) IV ×3 (10:32→18:38)
[2018-01-13] MEDS: zolPIDEM TARTRATE 5 MG TAB PO (20:15)
[2018-01-13] MEDS: PANTOPRAZOLE 40MG INJ (PROTONIX) (C9113) IV (20:16)
[2018-01-13] MEDS: METOCLOPRAMIDE 10 MG TAB PO (20:56)
[2018-01-14] MEDS: HYDROmorphone HCL 1 MG/ML SYRINGE (J1170) IV ×5 (03:42→23:48)
[2018-01-14] MEDS: PROMETHAZINE INJ 25 MG/ML VIAL (J2550) IV ×4 (03:42→16:39)
[2018-01-14 06:50] LABS: HEMATOCRIT 29.2 % (36.0-47.0); HEMOGLOBIN 8.8 g/dl (12.0-16.0); MEAN CORPUSCULAR HGB CONC 30.1 g/dl (32.0-36.5); MEAN CORPUSCULAR VOLUME 79.8 fl (80.0-96.0); PLATELET COUNT, AUTOMATED 334 10^3/uL (150-450); RED BLOOD COUNT 3.66 10^6/uL (4.00-5.40); RED CELL DISTRIBUTION WIDTH 15.9 % (11.5-14.5); WHITE BLOOD COUNT 6.9 10^3/uL (4.0-10.0)
[2018-01-14] MEDS: FLUoxetine 20 MG CAP PO (08:16)
[2018-01-14] MEDS: SUCRALFATE SUSP 1GM/10ML UD PO ×4 (08:16→20:15)
[2018-01-14] MEDS: ENOXAPARIN 40 MG/0.4 ML SYRINGE (J1650) SC (08:16)
[2018-01-14] MEDS: CEFDINIR 300 MG CAP (OMNICEF) PO ×2 (08:16→20:15)
[2018-01-14] MEDS: SODIUM CHLORIDE 0.9% INJ 10 ML SYR IV (08:16)
[2018-01-14 08:41] LABS: ANION GAP 5 MEQ/L (8-16); BLOOD UREA NITROGEN 4 MG/DL (7-18); CALCIUM LEVEL 8.2 MG/DL (8.5-10.1); CARBON DIOXIDE LEVEL 30 MEQ/L (21-32); CHLORIDE LEVEL 109 MEQ/L (98-107); CREATININE FOR GFR 0.54 MG/DL (0.55-1.30); GLOMERULAR FILTRATION RATE > 60.0 (>60); GLUCOSE, FASTING 93 MG/DL (70-100); MAGNESIUM LEVEL 2.3 MG/DL (1.8-2.4); SODIUM LEVEL 144 MEQ/L (136-145)
[2018-01-14] MEDS: oxyCODONE 5MG TAB PO (10:45)
[2018-01-14] MEDS: zolPIDEM TARTRATE 5 MG TAB PO (20:15)
[2018-01-14] MEDS: ONDANSETRON 4MG/2ML VIAL (J2405) IV (20:15)
[2018-01-14] MEDS: PANTOPRAZOLE 40MG INJ (PROTONIX) (C9113) IV (20:15)
[2018-01-14] MEDS: MORPHINE 10 MG/ML 1ML VIAL (J2270) IV (21:13)
[2018-01-15] MEDS: HYDROmorphone HCL 1 MG/ML SYRINGE (J1170) IV (02:20)
[2018-01-15] MEDS: PROMETHAZINE INJ 25 MG/ML VIAL (J2550) IV ×3 (04:24→15:22)
[2018-01-15] MEDS: oxyCODONE 5MG TAB PO ×3 (04:24→22:34)
[2018-01-15] MEDS: MORPHINE 10 MG/ML 1ML VIAL (J2270) IV ×3 (05:01→15:22)
[2018-01-15 08:10] LABS: BASO % 0.4 % (0.0-1.0); EOS # 0.6 10^3/uL (0.0-0.50); EOS % 7.8 % (0.0-3.0); HEMATOCRIT 28.7 % (36.0-47.0); HEMOGLOBIN 8.8 g/dl (12.0-16.0); IMMATURE GRANULOCYTE % 0.4 % (0-3.0); LYMPH # 1.6 10^3/uL (1.5-4.5); LYMPH % 19.6 % (24.0-44.0); MEAN CORPUSCULAR HEMOGLOBIN 24.7 pg (27.0-33.0); MEAN CORPUSCULAR HGB CONC 30.7 g/dl (32.0-36.5); MEAN CORPUSCULAR VOLUME 80.6 fl (80.0-96.0); MONO # 0.6 10^3/uL (0.0-0.8); MONO % 7.5 % (0.0-5.0); NEUTROPHILS # 5.2 10^3/uL (1.8-7.7); NEUTROPHILS % 64.3 % (36.0-66.0); PLATELET COUNT, AUTOMATED 307 10^3/uL (150-450); RED BLOOD COUNT 3.56 10^6/uL (4.00-5.40); RED CELL DISTRIBUTION WIDTH 15.9 % (11.5-14.5)
[2018-01-15] MEDS: SUCRALFATE SUSP 1GM/10ML UD PO ×4 (08:19→20:22)
[2018-01-15] MEDS: FLUoxetine 20 MG CAP PO (08:19)
[2018-01-15] MEDS: SODIUM CHLORIDE 0.9% INJ 10 ML SYR IV (08:19)
[2018-01-15] MEDS: CEFDINIR 300 MG CAP (OMNICEF) PO ×2 (08:19→20:22)
[2018-01-15] MEDS: ENOXAPARIN 40 MG/0.4 ML SYRINGE (J1650) SC (08:19)
[2018-01-15 08:55] LABS: ANION GAP 7 MEQ/L (8-16); BLOOD UREA NITROGEN 4 MG/DL (7-18); CALCIUM LEVEL 8.4 MG/DL (8.5-10.1); CARBON DIOXIDE LEVEL 29 MEQ/L (21-32); CHLORIDE LEVEL 107 MEQ/L (98-107); CREATININE FOR GFR 0.59 MG/DL (0.55-1.30); GLOMERULAR FILTRATION RATE > 60.0 (>60); GLUCOSE, FASTING 103 MG/DL (70-100); MAGNESIUM LEVEL 2.2 MG/DL (1.8-2.4); POTASSIUM SERUM 3.4 MEQ/L (3.5-5.1); SODIUM LEVEL 143 MEQ/L (136-145)
[2018-01-15] MEDS: POTASSIUM CHLORIDE 10 MEQ SR TABLET PO (16:29)
[2018-01-15] MEDS: PANTOPRAZOLE 40MG INJ (PROTONIX) (C9113) IV (20:21)
[2018-01-15] MEDS: zolPIDEM TARTRATE 5 MG TAB PO (20:22)
[2018-01-15] MEDS: ONDANSETRON 4MG/2ML VIAL (J2405) IV (20:22)
[2018-01-15] MEDS: MORPHINE SULFATE ORAL SOLN 10 MG/5 ML UD PO (20:28)
[2018-01-15] MEDS: METOCLOPRAMIDE 10 MG TAB PO (22:34)
[2018-01-16] MEDS: MORPHINE SULFATE ORAL SOLN 10 MG/5 ML UD PO ×4 (00:58→15:28)
[2018-01-16] MEDS: oxyCODONE 5MG TAB PO ×3 (02:58→19:43)
[2018-01-16] MEDS: ONDANSETRON 4MG/2ML VIAL (J2405) IV ×2 (02:58→15:26)
[2018-01-16 07:47] LABS: BASO % 0.3 % (0.0-1.0); EOS # 0.6 10^3/uL (0.0-0.50); EOS % 7.8 % (0.0-3.0); HEMATOCRIT 29.2 % (36.0-47.0); HEMOGLOBIN 8.9 g/dl (12.0-16.0); IMMATURE GRANULOCYTE % 0.3 % (0-3.0); LYMPH # 1.3 10^3/uL (1.5-4.5); LYMPH % 18.1 % (24.0-44.0); MEAN CORPUSCULAR HEMOGLOBIN 24.7 pg (27.0-33.0); MEAN CORPUSCULAR HGB CONC 30.5 g/dl (32.0-36.5); MEAN CORPUSCULAR VOLUME 80.9 fl (80.0-96.0); MONO # 0.8 10^3/uL (0.0-0.8); MONO % 10.4 % (0.0-5.0); NEUTROPHILS # 4.6 10^3/uL (1.8-7.7); NEUTROPHILS % 63.1 % (36.0-66.0); PLATELET COUNT, AUTOMATED 298 10^3/uL (150-450); RED BLOOD COUNT 3.61 10^6/uL (4.00-5.40); RED CELL DISTRIBUTION WIDTH 15.9 % (11.5-14.5); WHITE BLOOD COUNT 7.3 10^3/uL (4.0-10.0)
[2018-01-16 08:18] LABS: ALBUMIN 3.3 GM/DL (3.2-5.2); ALKALINE PHOSPHATASE 97 U/L (45-117); ALT/SGPT 19 U/L (12-78); ANION GAP 7 MEQ/L (8-16); AST/SGOT 20 U/L (7-37); BILIRUBIN,TOTAL 0.5 MG/DL (0.2-1.0); BLOOD UREA NITROGEN 4 MG/DL (7-18); C REACTIVE PROTEIN QUANTITATIV 1.37 MG/DL (0.00-0.30); CALCIUM LEVEL 8.5 MG/DL (8.5-10.1); CARBON DIOXIDE LEVEL 29 MEQ/L (21-32); CHLORIDE LEVEL 107 MEQ/L (98-107); GLOMERULAR FILTRATION RATE > 60.0 (>60); GLUCOSE, FASTING 84 MG/DL (70-100); MAGNESIUM LEVEL 2.3 MG/DL (1.8-2.4); POTASSIUM SERUM 3.7 MEQ/L (3.5-5.1); SODIUM LEVEL 143 MEQ/L (136-145); TOTAL PROTEIN 6.6 GM/DL (6.4-8.2)
[2018-01-16] MEDS: POTASSIUM CHLORIDE 10 MEQ SR TABLET PO (08:59)
[2018-01-16] MEDS: CEFDINIR 300 MG CAP (OMNICEF) PO ×2 (08:59→19:43)
[2018-01-16] MEDS: ENOXAPARIN 40 MG/0.4 ML SYRINGE (J1650) SC (09:00)
[2018-01-16] MEDS: FLUoxetine 20 MG CAP PO (09:00)
[2018-01-16] MEDS: SUCRALFATE SUSP 1GM/10ML UD PO ×4 (09:01→19:43)
[2018-01-16] MEDS: SODIUM CHLORIDE 0.9% INJ 10 ML SYR IV ×2 (09:01→15:27)
[2018-01-16] MEDS: PANTOPRAZOLE 40MG INJ (PROTONIX) (C9113) IV (19:43)
[2018-01-16] MEDS: METOCLOPRAMIDE 10 MG TAB PO (19:43)
[2018-01-16] MEDS: zolPIDEM TARTRATE 5 MG TAB PO (19:44)
[2018-01-17] MEDS: oxyCODONE 5MG TAB PO ×2 (02:08→06:28)
[2018-01-17] MEDS: ONDANSETRON 4MG/2ML VIAL (J2405) IV ×3 (02:08→20:12)
[2018-01-17] MEDS: KETOROLAC 30 MG/ML VIAL (J1885) IV (04:45)
[2018-01-17] MEDS: diphenhydrAMINE 25 MG CAP PO (05:00)
[2018-01-17 05:25] LABS: HEMATOCRIT 29.1 % (36.0-47.0); HEMOGLOBIN 8.6 g/dl (12.0-15.5); MEAN CORPUSCULAR HEMOGLOBIN 23.8 pg (27.0-33.0); MEAN CORPUSCULAR HGB CONC 29.6 g/dl (32.0-36.5); MEAN CORPUSCULAR VOLUME 80.6 fl (80.0-96.0); PLATELET COUNT, AUTOMATED 312 10^3/uL (150-450); RED BLOOD COUNT 3.61 10^6/uL (4.00-5.40); RED CELL DISTRIBUTION WIDTH 15.9 % (11.5-14.5); WHITE BLOOD COUNT 6.5 10^3/uL (4.0-10.0)
[2018-01-17 05:42] LABS: ANION GAP 6 MEQ/L (8-16); BLOOD UREA NITROGEN 5 MG/DL (7-18); CALCIUM LEVEL 8.5 MG/DL (8.5-10.1); CARBON DIOXIDE LEVEL 29 MEQ/L (21-32); CHLORIDE LEVEL 107 MEQ/L (98-107); CREATININE FOR GFR 0.61 MG/DL (0.55-1.30); GLOMERULAR FILTRATION RATE > 60.0 (>60); GLUCOSE, FASTING 96 MG/DL (70-100); POTASSIUM SERUM 3.5 MEQ/L (3.5-5.1); SODIUM LEVEL 142 MEQ/L (136-145)
[2018-01-17] MEDS ORDERED: AMPICILLIN SOD 1 GM in APPROPRIATE DILUENT 10 ML IV (08:00)
[2018-01-17 08:01] LABS: C REACTIVE PROTEIN QUANTITATIV 2.25 MG/DL (0.00-0.30)
[2018-01-17] MEDS ORDERED: ISOVUE-370 76% 100ML VIAL (Q9967) As Ordered (08:18)
[2018-01-17] MEDS: CEFDINIR 300 MG CAP (OMNICEF) PO (09:14)
[2018-01-17] MEDS: SUCRALFATE SUSP 1GM/10ML UD PO ×4 (09:14→20:12)
[2018-01-17] MEDS: SODIUM CHLORIDE 0.9% INJ 10 ML SYR IV (09:14)
[2018-01-17] MEDS: MORPHINE 4 MG/ML 1ML VIAL (J2270) IV ×4 (09:15→21:49)
[2018-01-17] MEDS: FLUoxetine 20 MG CAP PO (09:15)
[2018-01-17] MEDS: AMPICILLIN SOD 1 GM in D5W MINI-BAG PLUS 50 ML IV ×3 (10:55→20:12)
[2018-01-17] MEDS: ENOXAPARIN 40 MG/0.4 ML SYRINGE (J1650) SC (10:55)
[2018-01-17] MEDS: PANTOPRAZOLE 40MG INJ (PROTONIX) (C9113) IV (20:12)
[2018-01-17] MEDS: zolPIDEM TARTRATE 5 MG TAB PO (20:13)
[2018-01-17] MEDS: METOCLOPRAMIDE 10 MG TAB PO (21:48)
[2018-01-18] MEDS: MORPHINE 4 MG/ML 1ML VIAL (J2270) IV ×5 (03:32→21:16)
[2018-01-18] MEDS: AMPICILLIN SOD 1 GM in D5W MINI-BAG PLUS 50 ML IV ×4 (03:32→20:31)
[2018-01-18] MEDS: ONDANSETRON 4MG/2ML VIAL (J2405) IV ×2 (03:32→12:48)
[2018-01-18] MEDS: METOCLOPRAMIDE 10 MG TAB PO (06:14)
[2018-01-18 06:28] LABS: HEMATOCRIT 28.8 % (36.0-47.0); HEMOGLOBIN 8.6 g/dl (12.0-15.5); MEAN CORPUSCULAR HEMOGLOBIN 24.3 pg (27.0-33.0); MEAN CORPUSCULAR HGB CONC 29.9 g/dl (32.0-36.5); MEAN CORPUSCULAR VOLUME 81.4 fl (80.0-96.0); PLATELET COUNT, AUTOMATED 313 10^3/uL (150-450); RED BLOOD COUNT 3.54 10^6/uL (4.00-5.40); RED CELL DISTRIBUTION WIDTH 16.1 % (11.5-14.5); WHITE BLOOD COUNT 7.4 10^3/uL (4.0-10.0)
[2018-01-18 06:43] LABS: ANION GAP 5 MEQ/L (8-16); BLOOD UREA NITROGEN 7 MG/DL (7-18); C REACTIVE PROTEIN QUANTITATIV 1.61 MG/DL (0.00-0.30); CALCIUM LEVEL 8.5 MG/DL (8.5-10.1); CARBON DIOXIDE LEVEL 29 MEQ/L (21-32); CHLORIDE LEVEL 105 MEQ/L (98-107); CREATININE FOR GFR 0.58 MG/DL (0.55-1.30); GLOMERULAR FILTRATION RATE > 60.0 (>60); GLUCOSE, FASTING 103 MG/DL (70-100); MAGNESIUM LEVEL 2.3 MG/DL (1.8-2.4); POTASSIUM SERUM 4.2 MEQ/L (3.5-5.1); SODIUM LEVEL 139 MEQ/L (136-145)
[2018-01-18] MEDS: SUCRALFATE SUSP 1GM/10ML UD PO ×4 (08:35→20:31)
[2018-01-18] MEDS: FLUoxetine 20 MG CAP PO (08:35)
[2018-01-18] MEDS: SODIUM CHLORIDE 0.9% INJ 10 ML SYR IV (08:36)
[2018-01-18] MEDS: ENOXAPARIN 40 MG/0.4 ML SYRINGE (J1650) SC (08:36)
[2018-01-18] MEDS: zolPIDEM TARTRATE 5 MG TAB PO (20:31)
[2018-01-18] MEDS: PANTOPRAZOLE 40MG INJ (PROTONIX) (C9113) IV (20:31)
[2018-01-19] MEDS: AMPICILLIN SOD 1 GM in D5W MINI-BAG PLUS 50 ML IV ×4 (02:43→20:37)
[2018-01-19] MEDS: MORPHINE 4 MG/ML 1ML VIAL (J2270) IV ×4 (04:21→20:36)
[2018-01-19] MEDS: SODIUM CHLORIDE 0.9% INJ 10 ML SYR IV ×2 (04:22→09:01)
[2018-01-19 04:37] LABS: HEMATOCRIT 29.9 % (36.0-47.0); MEAN CORPUSCULAR HGB CONC 30.1 g/dl (32.0-36.5); MEAN CORPUSCULAR VOLUME 79.7 fl (80.0-96.0); PLATELET COUNT, AUTOMATED 340 10^3/uL (150-450); RED BLOOD COUNT 3.75 10^6/uL (4.00-5.40); RED CELL DISTRIBUTION WIDTH 16.6 % (11.5-14.5)
[2018-01-19 04:54] LABS: ANION GAP 4 MEQ/L (8-16); BLOOD UREA NITROGEN 10 MG/DL (7-18); C REACTIVE PROTEIN QUANTITATIV 1.31 MG/DL (0.00-0.30); CALCIUM LEVEL 8.5 MG/DL (8.5-10.1); CARBON DIOXIDE LEVEL 29 MEQ/L (21-32); CHLORIDE LEVEL 105 MEQ/L (98-107); CREATININE FOR GFR 0.59 MG/DL (0.55-1.30); GLOMERULAR FILTRATION RATE > 60.0 (>60); GLUCOSE, FASTING 105 MG/DL (70-100); MAGNESIUM LEVEL 2.2 MG/DL (1.8-2.4); POTASSIUM SERUM 4.3 MEQ/L (3.5-5.1); SODIUM LEVEL 138 MEQ/L (136-145)
[2018-01-19] MEDS: ENOXAPARIN 40 MG/0.4 ML SYRINGE (J1650) SC (09:00)
[2018-01-19] MEDS: LIDOCAINE 5% OINT 30 GM TOP (09:01)
[2018-01-19] MEDS: SUCRALFATE SUSP 1GM/10ML UD PO ×4 (09:02→20:36)
[2018-01-19] MEDS: FLUoxetine 20 MG CAP PO (09:02)
[2018-01-19] MEDS: ONDANSETRON 4MG/2ML VIAL (J2405) IV ×2 (09:02→14:51)
[2018-01-19] MEDS: METOCLOPRAMIDE 10 MG TAB PO (09:02)
[2018-01-19] MEDS: PANTOPRAZOLE 40MG INJ (PROTONIX) (C9113) IV (20:36)
[2018-01-19] MEDS: zolPIDEM TARTRATE 5 MG TAB PO (20:36)
[2018-01-20] MEDS: MORPHINE 4 MG/ML 1ML VIAL (J2270) IV ×2 (02:41→08:54)
[2018-01-20] MEDS: AMPICILLIN SOD 1 GM in D5W MINI-BAG PLUS 50 ML IV ×2 (02:41→08:56)
[2018-01-20] MEDS: SUCRALFATE SUSP 1GM/10ML UD PO (06:08)
[2018-01-20 07:01] LABS: HEMATOCRIT 33.6 % (36.0-47.0); HEMOGLOBIN 10.2 g/dl (12.0-15.5); MEAN CORPUSCULAR HEMOGLOBIN 24.2 pg (27.0-33.0); MEAN CORPUSCULAR HGB CONC 30.4 g/dl (32.0-36.5); MEAN CORPUSCULAR VOLUME 79.8 fl (80.0-96.0); PLATELET COUNT, AUTOMATED 397 10^3/uL (150-450); RED BLOOD COUNT 4.21 10^6/uL (4.00-5.40); WHITE BLOOD COUNT 6.9 10^3/uL (4.0-10.0)
[2018-01-20 07:24] LABS: ANION GAP 8 MEQ/L (8-16); BLOOD UREA NITROGEN 16 MG/DL (7-18); C REACTIVE PROTEIN QUANTITATIV 0.79 MG/DL (0.00-0.30); CALCIUM LEVEL 9.1 MG/DL (8.5-10.1); CARBON DIOXIDE LEVEL 26 MEQ/L (21-32); CHLORIDE LEVEL 104 MEQ/L (98-107); GLOMERULAR FILTRATION RATE > 60.0 (>60); GLUCOSE, FASTING 127 MG/DL (70-100); MAGNESIUM LEVEL 2.4 MG/DL (1.8-2.4); POTASSIUM SERUM 4.3 MEQ/L (3.5-5.1); SODIUM LEVEL 138 MEQ/L (136-145)
[2018-01-20] MEDS: FLUoxetine 20 MG CAP PO (08:54)
[2018-01-20] MEDS: SODIUM CHLORIDE 0.9% INJ 10 ML SYR IV (08:54)
[2018-01-20] MEDS: ENOXAPARIN 40 MG/0.4 ML SYRINGE (J1650) SC (08:54)
== END 2018-01-20 12:25 | disposition home or self-care (01) | DRG 252 ==
LOC: M MS5PR 01-13 00:49 → M ED 16:17 → M ED INP 23:12
DX: K94.22 Gastrostomy infection (principal); E46 Unspecified protein-calorie malnutrition; K31.84 Gastroparesis; K90.9 Intestinal malabsorption, unspecified; Z98.84 Bariatric surgery status; G47.00 Insomnia, unspecified; L03.311 Cellulitis of abdominal wall; F32.9 Major depressive disorder, single episode, unspecified; F41.9 Anxiety disorder, unspecified; Z88.2 Allergy status to sulfonamides; Z88.1 Allergy status to other antibiotic agents; Z88.8 Allergy status to other drugs, medicaments and biological substances; M79.89 Other specified soft tissue disorders; E87.6 Hypokalemia; D64.9 Anemia, unspecified

== ENCOUNTER → 2018-02-04 | Outpatient (CLI) | payer OTHER | LOC: M PAIN 11:30 | DX: R10.13 Epigastric pain (principal); F32.9 Major depressive disorder, single episode, unspecified; F41.9 Anxiety disorder, unspecified; Z79.899 Other long term (current) drug therapy; Z88.2 Allergy status to sulfonamides; Z88.6 Allergy status to analgesic agent; Z88.8 Allergy status to other drugs, medicaments and biological substances; Z97.8 Presence of other specified devices | CPT/HCPCS: G0463 ==

== ENCOUNTER → 2018-02-04 | Outpatient (REF) | payer OTHER ==
[2018-02-04 16:40] LABS: BASO % 0.5 % (0.0-1.0); EOS % 0.6 % (0.0-3.0); HEMATOCRIT 30.8 % (36.0-47.0); HEMOGLOBIN 9.5 g/dl (12.0-15.5); IMMATURE GRANULOCYTE % 0.3 % (0-3.0); LYMPH % 15.7 % (24.0-44.0); MEAN CORPUSCULAR HEMOGLOBIN 24.2 pg (27.0-33.0); MEAN CORPUSCULAR HGB CONC 30.8 g/dl (32.0-36.5); MEAN CORPUSCULAR VOLUME 78.6 fl (80.0-96.0); MONO # 0.4 10^3/uL (0.0-0.8); MONO % 6.4 % (0.0-5.0); NEUTROPHILS # 4.9 10^3/uL (1.8-7.7); NEUTROPHILS % 76.5 % (36.0-66.0); PLATELET COUNT, AUTOMATED 382 10^3/uL (150-450); RED BLOOD COUNT 3.92 10^6/uL (4.00-5.40); RED CELL DISTRIBUTION WIDTH 16.1 % (11.5-14.5); WHITE BLOOD COUNT 6.5 10^3/uL (4.0-10.0)
[2018-02-04 17:09] LABS: ALBUMIN 3.7 GM/DL (3.2-5.2); ALBUMIN/GLOBULIN RATIO 1.03 (1.00-1.93); ALKALINE PHOSPHATASE 181 U/L (45-117); ALT/SGPT 40 U/L (12-78); ANION GAP 10 MEQ/L (8-16); AST/SGOT 31 U/L (7-37); BILIRUBIN,TOTAL 0.3 MG/DL (0.2-1.0); BLOOD UREA NITROGEN 16 MG/DL (7-18); CALCIUM LEVEL 8.8 MG/DL (8.5-10.1); CARBON DIOXIDE LEVEL 22 MEQ/L (21-32); CHLORIDE LEVEL 107 MEQ/L (98-107); CREATININE FOR GFR 0.63 MG/DL (0.55-1.30); GLOMERULAR FILTRATION RATE > 60.0 (>60); GLUCOSE, FASTING 171 MG/DL (70-100); PHOSPHORUS LEVEL 3.6 MG/DL (2.5-4.9); SODIUM LEVEL 139 MEQ/L (136-145); TOTAL PROTEIN 7.3 GM/DL (6.4-8.2); TRIGLYCERIDES LEVEL 126 MG/DL (<150)
== END ==
LOC: M LAB REF 15:49
DX: E44.0 Moderate protein-calorie malnutrition (principal); K31.84 Gastroparesis

== ENCOUNTER → 2018-02-10 | Outpatient (REF) | payer OTHER ==
[2018-02-10 16:07] LABS: BASO % 0.6 % (0.0-1.0); EOS # 0.1 10^3/uL (0.0-0.50); EOS % 1.4 % (0.0-3.0); HEMATOCRIT 29.1 % (36.0-47.0); IMMATURE GRANULOCYTE % 0.3 % (0-3.0); LYMPH # 1.3 10^3/uL (1.5-4.5); LYMPH % 17.7 % (24.0-44.0); MEAN CORPUSCULAR HEMOGLOBIN 23.6 pg (27.0-33.0); MEAN CORPUSCULAR HGB CONC 30.9 g/dl (32.0-36.5); MEAN CORPUSCULAR VOLUME 76.4 fl (80.0-96.0); MONO # 0.5 10^3/uL (0.0-0.8); MONO % 7.2 % (0.0-5.0); NEUTROPHILS # 5.2 10^3/uL (1.8-7.7); NEUTROPHILS % 72.8 % (36.0-66.0); PLATELET COUNT, AUTOMATED 325 10^3/uL (150-450); RED BLOOD COUNT 3.81 10^6/uL (4.00-5.40); RED CELL DISTRIBUTION WIDTH 16.3 % (11.5-14.5); WHITE BLOOD COUNT 7.1 10^3/uL (4.0-10.0)
[2018-02-10 16:42] LABS: ALBUMIN 3.8 GM/DL (3.2-5.2); ALBUMIN/GLOBULIN RATIO 1.09 (1.00-1.93); ALKALINE PHOSPHATASE 150 U/L (45-117); ALT/SGPT 58 U/L (12-78); ANION GAP 9 MEQ/L (8-16); AST/SGOT 32 U/L (7-37); BILIRUBIN,TOTAL 0.5 MG/DL (0.2-1.0); BLOOD UREA NITROGEN 10 MG/DL (7-18); CALCIUM LEVEL 8.6 MG/DL (8.5-10.1); CARBON DIOXIDE LEVEL 24 MEQ/L (21-32); CHLORIDE LEVEL 109 MEQ/L (98-107); CREATININE FOR GFR 0.52 MG/DL (0.55-1.30); GLOMERULAR FILTRATION RATE > 60.0 (>60); GLUCOSE, FASTING 99 MG/DL (70-100); MAGNESIUM LEVEL 2.1 MG/DL (1.8-2.4); PHOSPHORUS LEVEL 4.1 MG/DL (2.5-4.9); POTASSIUM SERUM 3.6 MEQ/L (3.5-5.1); SODIUM LEVEL 142 MEQ/L (136-145); TOTAL PROTEIN 7.3 GM/DL (6.4-8.2)
== END ==
LOC: M LAB REF 15:57
DX: E44.0 Moderate protein-calorie malnutrition (principal); K31.84 Gastroparesis

== ENCOUNTER → 2018-02-17 | Outpatient (REF) | payer OTHER ==
[2018-02-17 15:35] LABS: BASO % 0.5 % (0.0-1.0); EOS # 0.1 10^3/uL (0.0-0.50); EOS % 1.1 % (0.0-3.0); HEMATOCRIT 31.4 % (36.0-47.0); HEMOGLOBIN 9.7 g/dl (12.0-15.5); IMMATURE GRANULOCYTE % 0.4 % (0-3.0); LYMPH # 1.7 10^3/uL (1.5-4.5); LYMPH % 21.5 % (24.0-44.0); MEAN CORPUSCULAR HEMOGLOBIN 23.7 pg (27.0-33.0); MEAN CORPUSCULAR HGB CONC 30.9 g/dl (32.0-36.5); MEAN CORPUSCULAR VOLUME 76.8 fl (80.0-96.0); MONO # 0.6 10^3/uL (0.0-0.8); MONO % 7.5 % (0.0-5.0); NEUTROPHILS # 5.4 10^3/uL (1.8-7.7); PLATELET COUNT, AUTOMATED 507 10^3/uL (150-450); RED BLOOD COUNT 4.09 10^6/uL (4.00-5.40); RED CELL DISTRIBUTION WIDTH 16.1 % (11.5-14.5); WHITE BLOOD COUNT 7.9 10^3/uL (4.0-10.0)
[2018-02-17 16:05] LABS: ALBUMIN 3.9 GM/DL (3.2-5.2); ALBUMIN/GLOBULIN RATIO 1.05 (1.00-1.93); ALKALINE PHOSPHATASE 129 U/L (45-117); ALT/SGPT 29 U/L (12-78); ANION GAP 8 MEQ/L (8-16); AST/SGOT 19 U/L (7-37); BILIRUBIN,TOTAL 0.5 MG/DL (0.2-1.0); BLOOD UREA NITROGEN 14 MG/DL (7-18); CALCIUM LEVEL 9.1 MG/DL (8.5-10.1); CARBON DIOXIDE LEVEL 25 MEQ/L (21-32); CHLORIDE LEVEL 110 MEQ/L (98-107); CREATININE FOR GFR 0.57 MG/DL (0.55-1.30); GLOMERULAR FILTRATION RATE > 60.0 (>60); GLUCOSE, FASTING 143 MG/DL (70-100); MAGNESIUM LEVEL 2.5 MG/DL (1.8-2.4); PHOSPHORUS LEVEL 3.4 MG/DL (2.5-4.9); POTASSIUM SERUM 4.2 MEQ/L (3.5-5.1); SODIUM LEVEL 143 MEQ/L (136-145); TOTAL PROTEIN 7.6 GM/DL (6.4-8.2); TRIGLYCERIDES LEVEL 75 MG/DL (<150)
== END ==
LOC: M LAB REF 15:06
DX: E44.0 Moderate protein-calorie malnutrition (principal); K31.84 Gastroparesis
CPT/HCPCS: 83735

== ENCOUNTER 2018-02-21 10:17 | Emergency (ER) | payer BC, OTHER ==
[2018-02-21] MEDS: MORPHINE 4 MG/ML 1ML VIAL/SYRINGE (J2270) IV (11:03)
[2018-02-21] MEDS: diphenhydrAMINE INJ 50MG/ML VIAL (J1200) IV (11:03)
[2018-02-21] MEDS: METOCLOPRAMIDE INJ 10MG/2ML VIAL (J2765) IV (11:03)
[2018-02-21] MEDS: NS 1,000 ML IV (11:04)
[2018-02-21 11:16] LABS: BASO # 0.1 10^3/uL (0.0-0.2); BASO % 0.9 % (0.0-1.0); EOS # 0.2 10^3/uL (0.0-0.50); EOS % 2.4 % (0.0-3.0); HEMATOCRIT 33.8 % (36.0-47.0); HEMOGLOBIN 10.4 g/dl (12.0-15.5); IMMATURE GRANULOCYTE % 0.1 % (0-3.0); LYMPH # 1.6 10^3/uL (1.5-4.5); LYMPH % 23.9 % (24.0-44.0); MEAN CORPUSCULAR HEMOGLOBIN 23.4 pg (27.0-33.0); MEAN CORPUSCULAR HGB CONC 30.8 g/dl (32.0-36.5); MEAN CORPUSCULAR VOLUME 76.1 fl (80.0-96.0); MONO # 0.7 10^3/uL (0.0-0.8); MONO % 11.1 % (0.0-5.0); NEUTROPHILS # 4.1 10^3/uL (1.8-7.7); NEUTROPHILS % 61.6 % (36.0-66.0); PLATELET COUNT, AUTOMATED 578 10^3/uL (150-450); RED BLOOD COUNT 4.44 10^6/uL (4.00-5.40); RED CELL DISTRIBUTION WIDTH 15.9 % (11.5-14.5); WHITE BLOOD COUNT 6.7 10^3/uL (4.0-10.0)
[2018-02-21 11:39] LABS: LACTIC ACID SEPSIS PROTOCOL 1.3 MMOL/L (0.4-2.0)
[2018-02-21 11:39] LABS: ALBUMIN 4.1 GM/DL (3.2-5.2); ALBUMIN/GLOBULIN RATIO 0.98 (1.00-1.93); ALKALINE PHOSPHATASE 130 U/L (45-117); ALT/SGPT 26 U/L (12-78); AMYLASE 51 U/L (25-115); ANION GAP 8 MEQ/L (8-16); AST/SGOT 17 U/L (7-37); BILIRUBIN,DIRECT 0.1 MG/DL (0.0-0.2); BILIRUBIN,TOTAL 0.5 MG/DL (0.2-1.0); BLOOD UREA NITROGEN 10 MG/DL (7-18); CALCIUM LEVEL 9.2 MG/DL (8.5-10.1); CARBON DIOXIDE LEVEL 26 MEQ/L (21-32); CHLORIDE LEVEL 106 MEQ/L (98-107); CREATININE FOR GFR 0.85 MG/DL (0.55-1.30); GLOMERULAR FILTRATION RATE > 60.0 (>60); GLUCOSE, FASTING 84 MG/DL (70-100); LIPASE 271 U/L (73-393); MAGNESIUM LEVEL 2.3 MG/DL (1.8-2.4); POTASSIUM SERUM 3.7 MEQ/L (3.5-5.1); SODIUM LEVEL 140 MEQ/L (136-145); TOTAL PROTEIN 8.3 GM/DL (6.4-8.2)
[2018-02-21 11:51] LABS: KETONE, URINE AUTO RFX NEGATIVE (NEGATIVE); LEUKOCYTE ESTERASE UR AUTO RFX NEGATIVE (NEGATIVE); NITRITE, URINE AUTO RFX NEGATIVE (NEGATIVE); RBC, URINE AUTO RFX 0 /HPF (0-3); SPECIFIC GRAVITY UR AUTO RFX 1.001 (1.002-1.035); SQUAM EPITHELIAL CELL UR AURFX 0 /HPF (0-6); WBC, URINE AUTO RFX 0 /HPF (0-3)
[2018-02-21] MEDS: HYDROmorphone HCL 1 MG/ML SYRINGE (J1170) IV (11:51)
== END 2018-02-21 12:38 | disposition home or self-care (01) ==
LOC: M ED 10:17
DX: R10.84 Generalized abdominal pain (principal); R11.2 Nausea with vomiting, unspecified; R19.7 Diarrhea, unspecified; E11.9 Type 2 diabetes mellitus without complications; Z98.84 Bariatric surgery status; Z87.442 Personal history of urinary calculi; K31.84 Gastroparesis; K90.9 Intestinal malabsorption, unspecified; D68.59 Other primary thrombophilia; Z86.718 Personal history of other venous thrombosis and embolism; Z93.1 Gastrostomy status; Z93.4 Other artificial openings of gastrointestinal tract status
CPT/HCPCS: J1170

== ENCOUNTER → 2018-02-24 | Outpatient (REF) | payer BC, OTHER ==
[2018-02-24 13:52] LABS: BASO % 0.7 % (0.0-1.0); EOS # 0.2 10^3/uL (0.0-0.50); EOS % 2.8 % (0.0-3.0); HEMATOCRIT 31.3 % (36.0-47.0); HEMOGLOBIN 9.6 g/dl (12.0-15.5); IMMATURE GRANULOCYTE % 0.3 % (0-3.0); LYMPH # 1.9 10^3/uL (1.5-4.5); LYMPH % 30.8 % (24.0-44.0); MEAN CORPUSCULAR HEMOGLOBIN 23.3 pg (27.0-33.0); MEAN CORPUSCULAR HGB CONC 30.7 g/dl (32.0-36.5); MONO # 0.5 10^3/uL (0.0-0.8); MONO % 7.8 % (0.0-5.0); NEUTROPHILS # 3.5 10^3/uL (1.8-7.7); NEUTROPHILS % 57.6 % (36.0-66.0); PLATELET COUNT, AUTOMATED 457 10^3/uL (150-450); RED BLOOD COUNT 4.12 10^6/uL (4.00-5.40); RED CELL DISTRIBUTION WIDTH 15.8 % (11.5-14.5)
[2018-02-24 14:25] LABS: MAGNESIUM LEVEL 2.2 MG/DL (1.8-2.4); PHOSPHORUS LEVEL 4.8 MG/DL (2.5-4.9)
[2018-02-24 17:41] LABS: ALBUMIN 4.2 GM/DL (3.2-5.2); ALKALINE PHOSPHATASE 127 U/L (45-117); ALT/SGPT 22 U/L (12-78); ANION GAP 7 MEQ/L (8-16); AST/SGOT 16 U/L (7-37); BILIRUBIN,TOTAL 0.5 MG/DL (0.2-1.0); BLOOD UREA NITROGEN 16 MG/DL (7-18); CALCIUM LEVEL 9.1 MG/DL (8.5-10.1); CARBON DIOXIDE LEVEL 23 MEQ/L (21-32); CHLORIDE LEVEL 109 MEQ/L (98-107); GLOMERULAR FILTRATION RATE > 60.0 (>60); GLUCOSE, FASTING 77 MG/DL (70-100); POTASSIUM SERUM 4.3 MEQ/L (3.5-5.1); SODIUM LEVEL 139 MEQ/L (136-145); TOTAL PROTEIN 7.7 GM/DL (6.4-8.2)
== END ==
LOC: M LAB REF 13:38
DX: E44.0 Moderate protein-calorie malnutrition (principal); K31.84 Gastroparesis
CPT/HCPCS: 83735

== ENCOUNTER → 2018-03-05 | Outpatient (CLI) | payer OTHER | LOC: M PAIN 11:00 | DX: R10.13 Epigastric pain (principal); F32.9 Major depressive disorder, single episode, unspecified; F41.9 Anxiety disorder, unspecified; Z79.891 Long term (current) use of opiate analgesic; Z79.899 Other long term (current) drug therapy; Z88.2 Allergy status to sulfonamides; Z88.6 Allergy status to analgesic agent; Z88.8 Allergy status to other drugs, medicaments and biological substances; Z98.84 Bariatric surgery status | CPT/HCPCS: G0463 ==

== ENCOUNTER → 2018-03-10 | Outpatient (REF) | payer OTHER ==
[2018-03-10 16:23] LABS: BASO # 0.1 10^3/uL (0.0-0.2); EOS # 0.4 10^3/uL (0.0-0.50); EOS % 5.9 % (0.0-3.0); HEMOGLOBIN 8.1 g/dl (12.0-15.5); IMMATURE GRANULOCYTE % 0.3 % (0-3.0); LYMPH # 1.9 10^3/uL (1.5-4.5); LYMPH % 30.9 % (24.0-44.0); MEAN CORPUSCULAR HEMOGLOBIN 23.3 pg (27.0-33.0); MEAN CORPUSCULAR VOLUME 77.8 fl (80.0-96.0); MONO # 0.6 10^3/uL (0.0-0.8); MONO % 10.4 % (0.0-5.0); NEUTROPHILS # 3.1 10^3/uL (1.8-7.7); NEUTROPHILS % 51.5 % (36.0-66.0); PLATELET COUNT, AUTOMATED 287 10^3/uL (150-450); RED BLOOD COUNT 3.47 10^6/uL (4.00-5.40); WHITE BLOOD COUNT 6.1 10^3/uL (4.0-10.0)
[2018-03-10 16:48] LABS: ALBUMIN 3.6 GM/DL (3.2-5.2); ALBUMIN/GLOBULIN RATIO 1.13 (1.00-1.93); ALKALINE PHOSPHATASE 99 U/L (45-117); ALT/SGPT 26 U/L (12-78); ANION GAP 7 MEQ/L (8-16); AST/SGOT 19 U/L (7-37); BILIRUBIN,TOTAL 0.5 MG/DL (0.2-1.0); BLOOD UREA NITROGEN 9 MG/DL (7-18); CALCIUM LEVEL 8.3 MG/DL (8.5-10.1); CARBON DIOXIDE LEVEL 27 MEQ/L (21-32); CHLORIDE LEVEL 109 MEQ/L (98-107); CREATININE FOR GFR 0.75 MG/DL (0.55-1.30); GLOMERULAR FILTRATION RATE > 60.0 (>60); GLUCOSE, FASTING 93 MG/DL (70-100); MAGNESIUM LEVEL 2.3 MG/DL (1.8-2.4); PHOSPHORUS LEVEL 5.2 MG/DL (2.5-4.9); POTASSIUM SERUM 3.8 MEQ/L (3.5-5.1); SODIUM LEVEL 143 MEQ/L (136-145); TOTAL PROTEIN 6.8 GM/DL (6.4-8.2); TRIGLYCERIDES LEVEL 96 MG/DL (<150)
== END ==
LOC: M LAB REF 16:04
DX: E44.0 Moderate protein-calorie malnutrition (principal); K31.84 Gastroparesis

== ENCOUNTER 2018-03-11 17:06 | Emergency (ER) | payer BC, OTHER ==
[2018-03-11] MEDS: PROMETHAZINE INJ 25 MG/ML VIAL (J2550) IV (20:33)
[2018-03-11] MEDS: MORPHINE 2 MG/ML 1ML SYRINGE (J2270) IV ×3 (20:34→23:16)
[2018-03-11] MEDS: NS 1,000 ML IV (20:35)
[2018-03-11 21:20] LABS: BASO % 0.6 % (0.0-1.0); EOS # 0.2 10^3/uL (0.0-0.50); EOS % 2.8 % (0.0-3.0); HEMATOCRIT 28.8 % (36.0-47.0); HEMOGLOBIN 8.5 g/dl (12.0-15.5); IMMATURE GRANULOCYTE % 0.3 % (0-3.0); LYMPH # 1.8 10^3/uL (1.5-4.5); LYMPH % 27.2 % (24.0-44.0); MEAN CORPUSCULAR HEMOGLOBIN 22.7 pg (27.0-33.0); MEAN CORPUSCULAR HGB CONC 29.5 g/dl (32.0-36.5); MONO # 0.5 10^3/uL (0.0-0.8); NEUTROPHILS # 4.1 10^3/uL (1.8-7.7); NEUTROPHILS % 61.1 % (36.0-66.0); PLATELET COUNT, AUTOMATED 328 10^3/uL (150-450); RED BLOOD COUNT 3.74 10^6/uL (4.00-5.40); RED CELL DISTRIBUTION WIDTH 15.9 % (11.5-14.5); WHITE BLOOD COUNT 6.8 10^3/uL (4.0-10.0)
[2018-03-11 21:31] LABS: INR 0.97; PARTIAL THROMBOPLASTIN TIME 27.9 SECONDS (26.8-37.9)
[2018-03-11 21:50] LABS: ALBUMIN 3.9 GM/DL (3.2-5.2); ALBUMIN/GLOBULIN RATIO 1.11 (1.00-1.93); ALKALINE PHOSPHATASE 106 U/L (45-117); ALT/SGPT 26 U/L (12-78); ANION GAP 6 MEQ/L (8-16); AST/SGOT 19 U/L (7-37); BILIRUBIN,DIRECT 0.1 MG/DL (0.0-0.2); BILIRUBIN,TOTAL 0.4 MG/DL (0.2-1.0); BLOOD UREA NITROGEN 17 MG/DL (7-18); CARBON DIOXIDE LEVEL 28 MEQ/L (21-32); CHLORIDE LEVEL 108 MEQ/L (98-107); CREATININE FOR GFR 0.56 MG/DL (0.55-1.30); GLOMERULAR FILTRATION RATE > 60.0 (>60); GLUCOSE, FASTING 90 MG/DL (70-100); LIPASE 239 U/L (73-393); POTASSIUM SERUM 4.4 MEQ/L (3.5-5.1); SODIUM LEVEL 142 MEQ/L (136-145); TOTAL PROTEIN 7.4 GM/DL (6.4-8.2)
[2018-03-12] MEDS: PROMETHAZINE INJ 25 MG/ML VIAL (J2550) IV ×2 (00:26→03:59)
[2018-03-12] MEDS: MORPHINE 2 MG/ML 1ML SYRINGE (J2270) IV (00:27)
[2018-03-12 00:41] LABS: HEMATOCRIT 26.4 % (36.0-47.0); HEMOGLOBIN 7.9 g/dl (12.0-15.5); MEAN CORPUSCULAR HGB CONC 29.9 g/dl (32.0-36.5); MEAN CORPUSCULAR VOLUME 76.7 fl (80.0-96.0); PLATELET COUNT, AUTOMATED 294 10^3/uL (150-450); RED BLOOD COUNT 3.44 10^6/uL (4.00-5.40); RED CELL DISTRIBUTION WIDTH 15.9 % (11.5-14.5); WHITE BLOOD COUNT 5.8 10^3/uL (4.0-10.0)
[2018-03-12] MEDS: MAALOX 30 ML SUSP *UDC PO (02:49)
[2018-03-12 02:57] LABS: HEMATOCRIT 26.7 % (36.0-47.0); HEMOGLOBIN 7.9 g/dl (12.0-15.5); MEAN CORPUSCULAR HEMOGLOBIN 22.8 pg (27.0-33.0); MEAN CORPUSCULAR HGB CONC 29.6 g/dl (32.0-36.5); MEAN CORPUSCULAR VOLUME 77.2 fl (80.0-96.0); PLATELET COUNT, AUTOMATED 284 10^3/uL (150-450); RED BLOOD COUNT 3.46 10^6/uL (4.00-5.40); RED CELL DISTRIBUTION WIDTH 15.9 % (11.5-14.5); WHITE BLOOD COUNT 5.4 10^3/uL (4.0-10.0)
[2018-03-12] MEDS: PANTOPRAZOLE 40MG INJ (PROTONIX) (C9113) IV (04:03)
== END 2018-03-12 05:13 | disposition left against medical advice (07) ==
LOC: M ED 03-12 05:13
DX: K92.0 Hematemesis (principal); R00.2 Palpitations; R10.9 Unspecified abdominal pain; J45.909 Unspecified asthma, uncomplicated; Z98.84 Bariatric surgery status; Z86.718 Personal history of other venous thrombosis and embolism; Z88.8 Allergy status to other drugs, medicaments and biological substances; Z88.5 Allergy status to narcotic agent; Z88.1 Allergy status to other antibiotic agents; Z88.2 Allergy status to sulfonamides; Z91.018 Allergy to other foods
CPT/HCPCS: C9113

== ENCOUNTER 2018-03-24 15:38 | Emergency (ER) | payer BC, OTHER ==
[2018-03-24 17:27] LABS: BASO % 0.4 % (0.0-1.0); EOS % 0.1 % (0.0-3.0); HEMATOCRIT 29.2 % (36.0-47.0); HEMOGLOBIN 9.1 g/dl (12.0-15.5); IMMATURE GRANULOCYTE % 0.3 % (0-3.0); LYMPH # 0.5 10^3/uL (1.5-4.5); LYMPH % 6.8 % (24.0-44.0); MEAN CORPUSCULAR HEMOGLOBIN 23.9 pg (27.0-33.0); MEAN CORPUSCULAR HGB CONC 31.2 g/dl (32.0-36.5); MEAN CORPUSCULAR VOLUME 76.8 fl (80.0-96.0); MONO # 0.8 10^3/uL (0.0-0.8); MONO % 10.1 % (0.0-5.0); NEUTROPHILS # 6.3 10^3/uL (1.8-7.7); NEUTROPHILS % 82.3 % (36.0-66.0); PLATELET COUNT, AUTOMATED 232 10^3/uL (150-450); RED CELL DISTRIBUTION WIDTH 17.4 % (11.5-14.5); WHITE BLOOD COUNT 7.7 10^3/uL (4.0-10.0)
[2018-03-24 17:33] LABS: ALBUMIN 3.5 GM/DL (3.2-5.2); ALBUMIN/GLOBULIN RATIO 0.92 (1.00-1.93); ALKALINE PHOSPHATASE 115 U/L (45-117); ALT/SGPT 42 U/L (12-78); ANION GAP 10 MEQ/L (8-16); AST/SGOT 30 U/L (7-37); BILIRUBIN,DIRECT 0.1 MG/DL (0.0-0.2); BILIRUBIN,TOTAL 0.7 MG/DL (0.2-1.0); BLOOD UREA NITROGEN 11 MG/DL (7-18); CALCIUM LEVEL 8.6 MG/DL (8.5-10.1); CARBON DIOXIDE LEVEL 23 MEQ/L (21-32); CHLORIDE LEVEL 106 MEQ/L (98-107); CREATININE FOR GFR 0.76 MG/DL (0.55-1.30); GLOMERULAR FILTRATION RATE > 60.0 (>60); GLUCOSE, FASTING 112 MG/DL (70-100); LIPASE 241 U/L (73-393); POTASSIUM SERUM 3.6 MEQ/L (3.5-5.1); SODIUM LEVEL 139 MEQ/L (136-145); TOTAL PROTEIN 7.3 GM/DL (6.4-8.2)
[2018-03-24] MEDS: METOCLOPRAMIDE INJ 10MG/2ML VIAL (J2765) IV (18:00)
[2018-03-24] MEDS: SODIUM CHLORIDE 0.9% INJ 10 ML SYR IV (18:36)
[2018-03-24] MEDS: ACETAMINOPHEN 325 MG/10.15 ML UDC GT (18:57)
[2018-03-24 19:19] LABS: KETONE, URINE AUTO RFX 1+ mg/dL (NEGATIVE); MUCUS, URINE RFX SMALL (NEGATIVE); NITRITE, URINE AUTO RFX NEGATIVE (NEGATIVE); RBC, URINE AUTO RFX 28 /HPF (0-3); SPECIFIC GRAVITY UR AUTO RFX 1.021 (1.002-1.035); SQUAM EPITHELIAL CELL UR AURFX 37 /HPF (0-6); YEAST LIKE CELL URINE AUTO RFX SMALL
[2018-03-24 19:39] LABS: LEUKOCYTE ESTERASE UR AUTO RFX 3+ (NEGATIVE); WBC, URINE AUTO RFX 17 /HPF (0-3)
== END 2018-03-24 20:34 | disposition left against medical advice (07) ==
LOC: M ED 15:38
DX: N39.0 Urinary tract infection, site not specified (principal); F33.9 Major depressive disorder, recurrent, unspecified; Z98.0 Intestinal bypass and anastomosis status; Z98.890 Other specified postprocedural states; Z86.14 Personal history of Methicillin resistant Staphylococcus aureus infection
CPT/HCPCS: J2765

== ENCOUNTER → 2018-03-24 | Outpatient (REF) | payer BC, OTHER ==
[2018-03-24 12:16] LABS: BASO % 0.3 % (0.0-1.0); EOS % 0.4 % (0.0-3.0); HEMATOCRIT 30.9 % (36.0-47.0); HEMOGLOBIN 9.4 g/dl (12.0-15.5); IMMATURE GRANULOCYTE % 0.3 % (0-3.0); LYMPH # 0.5 10^3/uL (1.5-4.5); LYMPH % 5.3 % (24.0-44.0); MEAN CORPUSCULAR HEMOGLOBIN 23.6 pg (27.0-33.0); MEAN CORPUSCULAR HGB CONC 30.4 g/dl (32.0-36.5); MEAN CORPUSCULAR VOLUME 77.4 fl (80.0-96.0); MONO # 0.7 10^3/uL (0.0-0.8); MONO % 7.7 % (0.0-5.0); NEUTROPHILS # 8.2 10^3/uL (1.8-7.7); PLATELET COUNT, AUTOMATED 269 10^3/uL (150-450); RED BLOOD COUNT 3.99 10^6/uL (4.00-5.40); RED CELL DISTRIBUTION WIDTH 17.4 % (11.5-14.5); WHITE BLOOD COUNT 9.6 10^3/uL (4.0-10.0)
[2018-03-24 12:43] LABS: ALBUMIN 3.8 GM/DL (3.2-5.2); ALBUMIN/GLOBULIN RATIO 1.12 (1.00-1.93); ALKALINE PHOSPHATASE 118 U/L (45-117); ALT/SGPT 44 U/L (12-78); ANION GAP 9 MEQ/L (8-16); AST/SGOT 30 U/L (7-37); BILIRUBIN,TOTAL 0.8 MG/DL (0.2-1.0); BLOOD UREA NITROGEN 10 MG/DL (7-18); CALCIUM LEVEL 8.6 MG/DL (8.5-10.1); CARBON DIOXIDE LEVEL 25 MEQ/L (21-32); CHLORIDE LEVEL 106 MEQ/L (98-107); CREATININE FOR GFR 0.68 MG/DL (0.55-1.30); GLOMERULAR FILTRATION RATE > 60.0 (>60); GLUCOSE, FASTING 86 MG/DL (70-100); MAGNESIUM LEVEL 2.1 MG/DL (1.8-2.4); PHOSPHORUS LEVEL 2.5 MG/DL (2.5-4.9); POTASSIUM SERUM 3.7 MEQ/L (3.5-5.1); SODIUM LEVEL 140 MEQ/L (136-145); TOTAL PROTEIN 7.2 GM/DL (6.4-8.2)
== END ==
LOC: M LAB REF 11:49
DX: E44.0 Moderate protein-calorie malnutrition (principal); K31.84 Gastroparesis
CPT/HCPCS: 83735

== ENCOUNTER → 2018-03-31 | Outpatient (REF) | payer BC, OTHER ==
[2018-03-31 12:51] LABS: BASO # 0.1 10^3/uL (0.0-0.2); BASO % 0.6 % (0.0-1.0); EOS # 0.3 10^3/uL (0.0-0.50); EOS % 4.2 % (0.0-3.0); HEMATOCRIT 27.9 % (36.0-47.0); HEMOGLOBIN 8.5 g/dl (12.0-15.5); IMMATURE GRANULOCYTE % 1.6 % (0-3.0); LYMPH % 24.4 % (24.0-44.0); MEAN CORPUSCULAR HEMOGLOBIN 23.7 pg (27.0-33.0); MEAN CORPUSCULAR HGB CONC 30.5 g/dl (32.0-36.5); MEAN CORPUSCULAR VOLUME 77.9 fl (80.0-96.0); MONO # 0.6 10^3/uL (0.0-0.8); NEUTROPHILS # 4.9 10^3/uL (1.8-7.7); NEUTROPHILS % 61.2 % (36.0-66.0); PLATELET COUNT, AUTOMATED 428 10^3/uL (150-450); RED BLOOD COUNT 3.58 10^6/uL (4.00-5.40); RED CELL DISTRIBUTION WIDTH 17.3 % (11.5-14.5)
[2018-03-31 13:20] LABS: ALBUMIN 3.4 GM/DL (3.2-5.2); ALBUMIN/GLOBULIN RATIO 0.97 (1.00-1.93); ALKALINE PHOSPHATASE 147 U/L (45-117); ALT/SGPT 64 U/L (12-78); ANION GAP 9 MEQ/L (8-16); AST/SGOT 55 U/L (7-37); BILIRUBIN,TOTAL 0.3 MG/DL (0.2-1.0); BLOOD UREA NITROGEN 8 MG/DL (7-18); CALCIUM LEVEL 8.4 MG/DL (8.5-10.1); CARBON DIOXIDE LEVEL 26 MEQ/L (21-32); CHLORIDE LEVEL 104 MEQ/L (98-107); CREATININE FOR GFR 0.57 MG/DL (0.55-1.30); GLOMERULAR FILTRATION RATE > 60.0 (>60); GLUCOSE, FASTING 92 MG/DL (70-100); MAGNESIUM LEVEL 2.1 MG/DL (1.8-2.4); PHOSPHORUS LEVEL 3.6 MG/DL (2.5-4.9); POTASSIUM SERUM 3.8 MEQ/L (3.5-5.1); SODIUM LEVEL 139 MEQ/L (136-145); TOTAL PROTEIN 6.9 GM/DL (6.4-8.2); TRIGLYCERIDES LEVEL 211 MG/DL (<150)
== END ==
LOC: M LAB REF 12:31
DX: E44.0 Moderate protein-calorie malnutrition (principal); K31.84 Gastroparesis
CPT/HCPCS: 83735

== ENCOUNTER → 2018-04-07 | Outpatient (REF) | payer BC, OTHER ==
[2018-04-07 15:11] LABS: BASO # 0.1 10^3/uL (0.0-0.2); BASO % 0.7 % (0.0-1.0); EOS # 0.1 10^3/uL (0.0-0.50); EOS % 1.1 % (0.0-3.0); HEMATOCRIT 28.9 % (36.0-47.0); HEMOGLOBIN 8.8 g/dl (12.0-15.5); IMMATURE GRANULOCYTE % 0.3 % (0-3.0); LYMPH # 1.5 10^3/uL (1.5-4.5); LYMPH % 16.1 % (24.0-44.0); MEAN CORPUSCULAR HEMOGLOBIN 23.2 pg (27.0-33.0); MEAN CORPUSCULAR HGB CONC 30.4 g/dl (32.0-36.5); MEAN CORPUSCULAR VOLUME 76.1 fl (80.0-96.0); MONO # 0.7 10^3/uL (0.0-0.8); MONO % 7.5 % (0.0-5.0); NEUTROPHILS # 6.7 10^3/uL (1.8-7.7); NEUTROPHILS % 74.3 % (36.0-66.0); PLATELET COUNT, AUTOMATED 595 10^3/uL (150-450); RED CELL DISTRIBUTION WIDTH 17.2 % (11.5-14.5); WHITE BLOOD COUNT 9.1 10^3/uL (4.0-10.0)
[2018-04-07 15:39] LABS: ALBUMIN 3.5 GM/DL (3.2-5.2); ALBUMIN/GLOBULIN RATIO 0.97 (1.00-1.93); ALKALINE PHOSPHATASE 100 U/L (45-117); ALT/SGPT 26 U/L (12-78); ANION GAP 12 MEQ/L (8-16); AST/SGOT 16 U/L (7-37); BILIRUBIN,TOTAL 0.5 MG/DL (0.2-1.0); BLOOD UREA NITROGEN 14 MG/DL (7-18); CALCIUM LEVEL 8.8 MG/DL (8.5-10.1); CARBON DIOXIDE LEVEL 24 MEQ/L (21-32); CHLORIDE LEVEL 105 MEQ/L (98-107); CREATININE FOR GFR 0.64 MG/DL (0.55-1.30); GLOMERULAR FILTRATION RATE > 60.0 (>60); GLUCOSE, FASTING 88 MG/DL (70-100); MAGNESIUM LEVEL 2.4 MG/DL (1.8-2.4); PHOSPHORUS LEVEL 4.7 MG/DL (2.5-4.9); POTASSIUM SERUM 4.5 MEQ/L (3.5-5.1); SODIUM LEVEL 141 MEQ/L (136-145); TOTAL PROTEIN 7.1 GM/DL (6.4-8.2)
== END ==
LOC: M LAB REF 14:48
DX: K92.2 Gastrointestinal hemorrhage, unspecified (principal); E44.0 Moderate protein-calorie malnutrition; K31.84 Gastroparesis
CPT/HCPCS: 83735

== ENCOUNTER → 2018-04-12 | Outpatient (CLI) | payer BC, OTHER ==
[2018-04-12 16:21] LABS: HEMOGLOBIN 8.2 g/dl (12.0-15.5); MEAN CORPUSCULAR HEMOGLOBIN 22.9 pg (27.0-33.0); MEAN CORPUSCULAR HGB CONC 30.4 g/dl (32.0-36.5); MEAN CORPUSCULAR VOLUME 75.4 fl (80.0-96.0); PLATELET COUNT, AUTOMATED 447 10^3/uL (150-450); RED BLOOD COUNT 3.58 10^6/uL (4.00-5.40); WHITE BLOOD COUNT 6.8 10^3/uL (4.0-10.0)
[2018-04-12 17:01] LABS: FERRITIN 6 NG/ML (8-252); IRON (FE) 12 UG/DL (50-170); PERCENT SATURATION 2.4 % (13.2-45.0); TOTAL IRON BINDING CAPACITY 499 UG/DL (250-450)
[2018-04-14 09:52] LABS: TOTAL 25(OH) VITAMIN D 17.4 NG/ML (30.0-100.0)
[2018-04-14 09:54] LABS: VITAMIN B12 LEVEL 511 PG/ML (247-911)
== END ==
LOC: M LAB 13:20
DX: Z98.84 Bariatric surgery status (principal)
CPT/HCPCS: 83550

== ENCOUNTER → 2018-04-14 | Outpatient (REF) | payer BC, OTHER ==
[2018-04-14 16:13] LABS: BASO % 0.3 % (0.0-1.0); EOS % 0.4 % (0.0-3.0); HEMATOCRIT 24.4 % (36.0-47.0); HEMOGLOBIN 7.2 g/dl (12.0-15.5); IMMATURE GRANULOCYTE % 0.4 % (0-3.0); LYMPH # 0.6 10^3/uL (1.5-4.5); LYMPH % 8.9 % (24.0-44.0); MEAN CORPUSCULAR HEMOGLOBIN 22.7 pg (27.0-33.0); MEAN CORPUSCULAR HGB CONC 29.5 g/dl (32.0-36.5); MONO # 0.6 10^3/uL (0.0-0.8); MONO % 8.2 % (0.0-5.0); NEUTROPHILS # 5.9 10^3/uL (1.8-7.7); NEUTROPHILS % 81.8 % (36.0-66.0); PLATELET COUNT, AUTOMATED 323 10^3/uL (150-450); RED BLOOD COUNT 3.17 10^6/uL (4.00-5.40); RED CELL DISTRIBUTION WIDTH 16.9 % (11.5-14.5); WHITE BLOOD COUNT 7.2 10^3/uL (4.0-10.0)
[2018-04-14 16:26] LABS: ALBUMIN 3.3 GM/DL (3.2-5.2); ALBUMIN/GLOBULIN RATIO 1.06 (1.00-1.93); ALKALINE PHOSPHATASE 94 U/L (45-117); ALT/SGPT 28 U/L (12-78); ANION GAP 11 MEQ/L (8-16); AST/SGOT 21 U/L (7-37); BILIRUBIN,TOTAL 0.7 MG/DL (0.2-1.0); BLOOD UREA NITROGEN 7 MG/DL (7-18); CALCIUM LEVEL 7.8 MG/DL (8.5-10.1); CARBON DIOXIDE LEVEL 24 MEQ/L (21-32); CHLORIDE LEVEL 103 MEQ/L (98-107); CREATININE FOR GFR 0.73 MG/DL (0.55-1.30); GLOMERULAR FILTRATION RATE > 60.0 (>60); GLUCOSE, FASTING 188 MG/DL (70-100); MAGNESIUM LEVEL 1.9 MG/DL (1.8-2.4); PHOSPHORUS LEVEL 3.3 MG/DL (2.5-4.9); POTASSIUM SERUM 3.3 MEQ/L (3.5-5.1); SODIUM LEVEL 138 MEQ/L (136-145); TOTAL PROTEIN 6.4 GM/DL (6.4-8.2)
== END ==
LOC: M LAB REF 15:20
DX: K92.2 Gastrointestinal hemorrhage, unspecified (principal); E44.0 Moderate protein-calorie malnutrition; K31.84 Gastroparesis
CPT/HCPCS: 83735

== ENCOUNTER → 2018-04-21 | Outpatient (REF) | payer BC, OTHER ==
[2018-04-21 15:38] LABS: BASO # 0.1 10^3/uL (0.0-0.2); BASO % 0.8 % (0.0-1.0); EOS # 0.3 10^3/uL (0.0-0.50); EOS % 3.6 % (0.0-3.0); HEMOGLOBIN 8.5 g/dl (12.0-15.5); IMMATURE GRANULOCYTE % 2.6 % (0-3.0); LYMPH # 1.8 10^3/uL (1.5-4.5); LYMPH % 24.2 % (24.0-44.0); MEAN CORPUSCULAR HEMOGLOBIN 22.4 pg (27.0-33.0); MEAN CORPUSCULAR HGB CONC 29.3 g/dl (32.0-36.5); MEAN CORPUSCULAR VOLUME 76.5 fl (80.0-96.0); MONO # 0.5 10^3/uL (0.0-0.8); MONO % 6.5 % (0.0-5.0); NEUTROPHILS # 4.5 10^3/uL (1.8-7.7); NEUTROPHILS % 62.3 % (36.0-66.0); PLATELET COUNT, AUTOMATED 391 10^3/uL (150-450); RED BLOOD COUNT 3.79 10^6/uL (4.00-5.40); WHITE BLOOD COUNT 7.3 10^3/uL (4.0-10.0)
[2018-04-21 15:59] LABS: ALBUMIN/GLOBULIN RATIO 1.11 (1.00-1.93); ALKALINE PHOSPHATASE 125 U/L (45-117); ALT/SGPT 40 U/L (12-78); ANION GAP 11 MEQ/L (8-16); AST/SGOT 15 U/L (7-37); BILIRUBIN,TOTAL 0.4 MG/DL (0.2-1.0); BLOOD UREA NITROGEN 10 MG/DL (7-18); CALCIUM LEVEL 8.8 MG/DL (8.5-10.1); CARBON DIOXIDE LEVEL 25 MEQ/L (21-32); CHLORIDE LEVEL 106 MEQ/L (98-107); CREATININE FOR GFR 0.76 MG/DL (0.55-1.30); GLOMERULAR FILTRATION RATE > 60.0 (>60); GLUCOSE, FASTING 71 MG/DL (70-100); MAGNESIUM LEVEL 2.6 MG/DL (1.8-2.4); PHOSPHORUS LEVEL 3.7 MG/DL (2.5-4.9); POTASSIUM SERUM 4.6 MEQ/L (3.5-5.1); SODIUM LEVEL 142 MEQ/L (136-145); TOTAL PROTEIN 7.6 GM/DL (6.4-8.2); TRIGLYCERIDES LEVEL 130 MG/DL (<150)
== END ==
LOC: M LAB REF 15:24
DX: K92.2 Gastrointestinal hemorrhage, unspecified (principal); E44.0 Moderate protein-calorie malnutrition; K31.84 Gastroparesis
CPT/HCPCS: 83735

== ENCOUNTER → 2018-05-12 | Outpatient (REF) | payer OTHER ==
[2018-05-12 13:03] LABS: BASO % 0.7 % (0.0-1.0); EOS # 0.2 10^3/uL (0.0-0.50); EOS % 2.7 % (0.0-3.0); HEMATOCRIT 36.5 % (36.0-47.0); HEMOGLOBIN 11.1 g/dl (12.0-15.5); IMMATURE GRANULOCYTE % 0.2 % (0-3.0); LYMPH # 0.8 10^3/uL (1.5-4.5); LYMPH % 14.8 % (24.0-44.0); MEAN CORPUSCULAR HEMOGLOBIN 24.3 pg (27.0-33.0); MEAN CORPUSCULAR HGB CONC 30.4 g/dl (32.0-36.5); MONO # 0.4 10^3/uL (0.0-0.8); MONO % 6.6 % (0.0-5.0); NEUTROPHILS # 4.1 10^3/uL (1.8-7.7); PLATELET COUNT, AUTOMATED 241 10^3/uL (150-450); RED BLOOD COUNT 4.56 10^6/uL (4.00-5.40); WHITE BLOOD COUNT 5.5 10^3/uL (4.0-10.0)
[2018-05-12 13:25] LABS: ALBUMIN 3.7 GM/DL (3.2-5.2); ALKALINE PHOSPHATASE 110 U/L (45-117); ALT/SGPT 18 U/L (12-78); ANION GAP 15 MEQ/L (8-16); AST/SGOT 12 U/L (7-37); BILIRUBIN,DIRECT 0.1 MG/DL (0.0-0.2); BILIRUBIN,TOTAL 0.7 MG/DL (0.2-1.0); BLOOD UREA NITROGEN 9 MG/DL (7-18); CALCIUM LEVEL 9.2 MG/DL (8.5-10.1); CARBON DIOXIDE LEVEL 22 MEQ/L (21-32); CHLORIDE LEVEL 99 MEQ/L (98-107); CREATININE FOR GFR 0.94 MG/DL (0.55-1.30); GLOMERULAR FILTRATION RATE > 60.0 (>60); GLUCOSE, FASTING 213 MG/DL (70-100); PHOSPHORUS LEVEL 2.8 MG/DL (2.5-4.9); POTASSIUM SERUM 3.7 MEQ/L (3.5-5.1); SODIUM LEVEL 136 MEQ/L (136-145); TOTAL PROTEIN 7.4 GM/DL (6.4-8.2); TRIGLYCERIDES LEVEL 111 MG/DL (<150)
[2018-05-13 13:07] LABS: ERYTHROCYTE SEDIMENTATION RATE 13 mm/hr (0-20)
== END ==
LOC: M LAB REF 12:34
DX: E44.0 Moderate protein-calorie malnutrition (principal); K31.84 Gastroparesis

== ENCOUNTER → 2018-05-19 | Outpatient (REF) | payer OTHER ==
[2018-05-19 13:24] LABS: BASO % 1.7 % (0.0-1.0); EOS # 0.1 10^3/uL (0.0-0.50); EOS % 4.6 % (0.0-3.0); HEMATOCRIT 35.2 % (36.0-47.0); HEMOGLOBIN 10.7 g/dl (12.0-15.5); IMMATURE GRANULOCYTE % 1.2 % (0-3.0); LYMPH # 0.5 10^3/uL (1.5-4.5); LYMPH % 31.2 % (24.0-44.0); MEAN CORPUSCULAR HEMOGLOBIN 24.9 pg (27.0-33.0); MEAN CORPUSCULAR HGB CONC 30.4 g/dl (32.0-36.5); MEAN CORPUSCULAR VOLUME 82.1 fl (80.0-96.0); MONO # 0.1 10^3/uL (0.0-0.8); MONO % 7.5 % (0.0-5.0); NEUTROPHILS % 53.8 % (36.0-66.0); PLATELET COUNT, AUTOMATED 189 10^3/uL (150-450); RED BLOOD COUNT 4.29 10^6/uL (4.00-5.40); RED CELL DISTRIBUTION WIDTH 23.5 % (11.5-14.5)
[2018-05-19 13:27] LABS: NEUTROPHILS # 0.9 10^3/uL (1.8-7.7); POS COUNT POS FLAG; POSITIVE DIFF POS FLAG; POSITIVE MORPH POS FLAG; WHITE BLOOD COUNT 1.7 10^3/uL (4.0-10.0)
[2018-05-19 13:54] LABS: ERYTHROCYTE SEDIMENTATION RATE 35 mm/hr (0-20)
[2018-05-19 13:57] LABS: ALBUMIN 3.4 GM/DL (3.2-5.2); ALBUMIN/GLOBULIN RATIO 0.97 (1.00-1.93); ALKALINE PHOSPHATASE 184 U/L (45-117); ALT/SGPT 230 U/L (12-78); ANION GAP 10 MEQ/L (8-16); AST/SGOT 233 U/L (7-37); BILIRUBIN,DIRECT 0.2 MG/DL (0.0-0.2); BILIRUBIN,TOTAL 0.8 MG/DL (0.2-1.0); BLOOD UREA NITROGEN 12 MG/DL (7-18); C REACTIVE PROTEIN QUANTITATIV 7.25 MG/DL (0.00-0.30); CALCIUM LEVEL 8.6 MG/DL (8.5-10.1); CARBON DIOXIDE LEVEL 23 MEQ/L (21-32); CHLORIDE LEVEL 107 MEQ/L (98-107); GLOMERULAR FILTRATION RATE > 60.0 (>60); GLUCOSE, FASTING 91 MG/DL (70-100); MAGNESIUM LEVEL 2.5 MG/DL (1.8-2.4); PHOSPHORUS LEVEL 2.8 MG/DL (2.5-4.9); POTASSIUM SERUM 4.4 MEQ/L (3.5-5.1); SODIUM LEVEL 140 MEQ/L (136-145); TOTAL PROTEIN 6.9 GM/DL (6.4-8.2); TRIGLYCERIDES LEVEL 195 MG/DL (<150)
== END ==
LOC: M LAB REF 13:13
DX: E44.0 Moderate protein-calorie malnutrition (principal); K31.84 Gastroparesis

== ENCOUNTER → 2018-06-02 | Outpatient (REF) | payer OTHER ==
[2018-06-02 17:21] LABS: BASO # 0.1 10^3/uL (0.0-0.2); BASO % 0.7 % (0.0-1.0); EOS # 0.3 10^3/uL (0.0-0.50); EOS % 3.1 % (0.0-3.0); HEMOGLOBIN 10.9 g/dl (12.0-15.5); LYMPH # 2.1 10^3/uL (1.5-4.5); LYMPH % 26.2 % (24.0-44.0); MEAN CORPUSCULAR HEMOGLOBIN 25.6 pg (27.0-33.0); MEAN CORPUSCULAR HGB CONC 31.1 g/dl (32.0-36.5); MEAN CORPUSCULAR VOLUME 82.2 fl (80.0-96.0); MONO # 0.6 10^3/uL (0.0-0.8); PLATELET COUNT, AUTOMATED 522 10^3/uL (150-450); RED BLOOD COUNT 4.26 10^6/uL (4.00-5.40); RED CELL DISTRIBUTION WIDTH 23.1 % (11.5-14.5)
[2018-06-02 18:29] LABS: ALBUMIN 3.8 GM/DL (3.2-5.2); ALBUMIN/GLOBULIN RATIO 0.93 (1.00-1.93); ALKALINE PHOSPHATASE 170 U/L (45-117); ALT/SGPT 40 U/L (12-78); ANION GAP 9 MEQ/L (8-16); AST/SGOT 19 U/L (7-37); BILIRUBIN,TOTAL 0.4 MG/DL (0.2-1.0); BLOOD UREA NITROGEN 9 MG/DL (7-18); CALCIUM LEVEL 9.1 MG/DL (8.5-10.1); CARBON DIOXIDE LEVEL 25 MEQ/L (21-32); CHLORIDE LEVEL 105 MEQ/L (98-107); CREATININE FOR GFR 0.59 MG/DL (0.55-1.30); GLOMERULAR FILTRATION RATE > 60.0 (>60); GLUCOSE, FASTING 67 MG/DL (70-100); MAGNESIUM LEVEL 2.3 MG/DL (1.8-2.4); POTASSIUM SERUM 4.2 MEQ/L (3.5-5.1); SODIUM LEVEL 139 MEQ/L (136-145); TOTAL PROTEIN 7.9 GM/DL (6.4-8.2); TRIGLYCERIDES LEVEL 250 MG/DL (<150); VANCOMYCIN RANDOM < 0.8 UG/ML
[2018-06-02 18:56] LABS: PREALBUMIN 37.1 MG/DL (20.0-40.0)
[2018-06-05 14:53] LABS: C REACTIVE PROTEIN QUANTITATIV 0.67 MG/DL (0.00-0.30)
== END ==
LOC: M LAB REF 16:35
DX: K90.49 Malabsorption due to intolerance, not elsewhere classified (principal); B95.62 Methicillin resistant Staphylococcus aureus infection as the cause of diseases classified elsewhere
CPT/HCPCS: 83735

== ENCOUNTER → 2018-06-06 | Outpatient (REF) | payer OTHER ==
[2018-06-06 14:20] LABS: ERYTHROCYTE SEDIMENTATION RATE 45 mm/hr (0-20)
== END ==
LOC: M LAB REF 13:27
DX: R78.81 Bacteremia (principal); Z79.2 Long term (current) use of antibiotics

== ENCOUNTER 2018-06-10 11:35 | Inpatient (IN) | payer BC, OTHER ==
[2018-06-10] MEDS: PROMETHAZINE INJ 25 MG/ML VIAL (J2550) IV (12:33)
[2018-06-10] MEDS: HYDROMORPHONE HCL 0.5 MG/ 0.5 ML SYRINGE (J1170 PER 1) IV ×4 (12:34→19:40)
[2018-06-10] MEDS: NS 1,000 ML IV ×2 (12:34→23:50)
[2018-06-10 12:37] LABS: BASO # 0.1 10^3/uL (0.0-0.2); BASO % 0.8 % (0.0-1.0); EOS # 0.1 10^3/uL (0.0-0.50); EOS % 2.2 % (0.0-3.0); HEMATOCRIT 35.2 % (36.0-47.0); HEMOGLOBIN 11.1 g/dl (12.0-15.5); IMMATURE GRANULOCYTE % 0.3 % (0-3.0); LYMPH # 1.1 10^3/uL (1.5-4.5); LYMPH % 16.8 % (24.0-44.0); MEAN CORPUSCULAR HEMOGLOBIN 26.6 pg (27.0-33.0); MEAN CORPUSCULAR HGB CONC 31.5 g/dl (32.0-36.5); MEAN CORPUSCULAR VOLUME 84.2 fl (80.0-96.0); MONO # 0.4 10^3/uL (0.0-0.8); MONO % 5.7 % (0.0-5.0); NEUTROPHILS # 4.7 10^3/uL (1.8-7.7); NEUTROPHILS % 74.2 % (36.0-66.0); PLATELET COUNT, AUTOMATED 373 10^3/uL (150-450); RED BLOOD COUNT 4.18 10^6/uL (4.00-5.40); RED CELL DISTRIBUTION WIDTH 22.5 % (11.5-14.5); WHITE BLOOD COUNT 6.3 10^3/uL (4.0-10.0)
[2018-06-10 12:48] LABS: INR 0.98
[2018-06-10 13:12] LABS: ALBUMIN 3.7 GM/DL (3.2-5.2); ALBUMIN/GLOBULIN RATIO 0.97 (1.00-1.93); ALKALINE PHOSPHATASE 99 U/L (45-117); ALT/SGPT 33 U/L (12-78); ANION GAP 9 MEQ/L (8-16); AST/SGOT 16 U/L (7-37); BILIRUBIN,DIRECT 0.1 MG/DL (0.0-0.2); BILIRUBIN,TOTAL 0.6 MG/DL (0.2-1.0); BLOOD UREA NITROGEN 13 MG/DL (7-18); CALCIUM LEVEL 9.3 MG/DL (8.5-10.1); CARBON DIOXIDE LEVEL 26 MEQ/L (21-32); CHLORIDE LEVEL 106 MEQ/L (98-107); CREATININE FOR GFR 0.87 MG/DL (0.55-1.30); GLOMERULAR FILTRATION RATE > 60.0 (>60); GLUCOSE, FASTING 118 MG/DL (70-100); LIPASE 265 U/L (73-393); POTASSIUM SERUM 3.8 MEQ/L (3.5-5.1); SODIUM LEVEL 141 MEQ/L (136-145); TOTAL PROTEIN 7.5 GM/DL (6.4-8.2)
[2018-06-10] MEDS ORDERED: ISOVUE-370 76% 100ML VIAL (Q9967) As Ordered (13:40)
[2018-06-10 13:55] LABS: KETONE, URINE AUTO RFX NEGATIVE (NEGATIVE); LEUKOCYTE ESTERASE UR AUTO RFX NEGATIVE (NEGATIVE); NITRITE, URINE AUTO RFX NEGATIVE (NEGATIVE); RBC, URINE AUTO RFX TNTC /HPF (0-3); SPECIFIC GRAVITY UR AUTO RFX 1.011 (1.002-1.035); SQUAM EPITHELIAL CELL UR AURFX 41 /HPF (0-6); WBC, URINE AUTO RFX 5 /HPF (0-3)
[2018-06-10] MEDS: PIPERACILLIN/TAZOBACTAM SOD 3.375 GM in D5W MINI-BAG PLUS 50 ML IV (16:38)
[2018-06-10] MEDS: ONDANSETRON 4MG/2ML VIAL (J2405) IV (16:50)
[2018-06-10] MEDS: PANTOPRAZOLE 40MG INJ (PROTONIX) (C9113) IV (21:35)
[2018-06-10] MEDS ORDERED: LORazepam 0.5 MG TAB PO (22:00)
[2018-06-10] MEDS: PANTOPRAZOLE SODIUM 40 MG in D5W 50 ML IV (22:12)
[2018-06-10] MEDS ORDERED: VANCOMYCIN HCL 900 MG in IV FLUID PLACE HOLDER 1 EA IV (22:30)
[2018-06-10] MEDS ORDERED: PROMETHAZINE 25 MG TAB PO (22:30)
[2018-06-10 22:40] LABS: HEMATOCRIT 32.2 % (36.0-47.0); HEMOGLOBIN 10.2 g/dl (12.0-15.5); MEAN CORPUSCULAR HEMOGLOBIN 26.5 pg (27.0-33.0); MEAN CORPUSCULAR HGB CONC 31.7 g/dl (32.0-36.5); MEAN CORPUSCULAR VOLUME 83.6 fl (80.0-96.0); PLATELET COUNT, AUTOMATED 342 10^3/uL (150-450); RED BLOOD COUNT 3.85 10^6/uL (4.00-5.40); RED CELL DISTRIBUTION WIDTH 22.9 % (11.5-14.5); WHITE BLOOD COUNT 6.2 10^3/uL (4.0-10.0)
[2018-06-10] MEDS: HYDROmorphone 2 MG TAB PO (23:04)
[2018-06-10] MEDS: SODIUM CHLORIDE 0.9% 1000 ML IV (23:05)
[2018-06-10] MEDS: VANCOMYCIN HCL 1,000 MG, VIAL MATE ADAPTER 1 EACH in D5W 250 ML IV (23:50)
[2018-06-10] MEDS: zolPIDEM CR 6.25MG TABLET (AMBIEN CR) PO (23:50)
[2018-06-11] MEDS: PROMETHAZINE INJ 25 MG/ML VIAL (J2550) IV ×5 (00:26→23:16)
[2018-06-11] MEDS: PIPERACILLIN/TAZOBACTAM SOD 4.5 GM in D5W MINI-BAG PLUS 50 ML IV ×5 (01:08→23:59)
[2018-06-11] MEDS: HYDROMORPHONE HCL 0.5 MG/ 0.5 ML SYRINGE (J1170 PER 1) IV ×6 (01:30→21:56)
[2018-06-11] MEDS: PANTOPRAZOLE SODIUM 40 MG in D5W 50 ML IV ×5 (02:48→23:14)
[2018-06-11] MEDS: FLUCONAZOLE 400 MG in APPROPRIATE DILUENT 1 EA IV (02:48)
[2018-06-11] MEDS: VANCOMYCIN HCL 1,000 MG, VIAL MATE ADAPTER 1 EACH in D5W 250 ML IV ×3 (05:44→22:28)
[2018-06-11 06:15] LABS: BASO # 0.1 10^3/uL (0.0-0.2); BASO % 1.3 % (0.0-1.0); EOS # 0.4 10^3/uL (0.0-0.50); EOS % 10.7 % (0.0-3.0); HEMATOCRIT 30.2 % (36.0-47.0); HEMOGLOBIN 9.3 g/dl (12.0-15.5); IMMATURE GRANULOCYTE % 0.3 % (0-3.0); LYMPH # 1.2 10^3/uL (1.5-4.5); MEAN CORPUSCULAR HEMOGLOBIN 26.6 pg (27.0-33.0); MEAN CORPUSCULAR HGB CONC 30.8 g/dl (32.0-36.5); MEAN CORPUSCULAR VOLUME 86.3 fl (80.0-96.0); MONO # 0.4 10^3/uL (0.0-0.8); MONO % 9.4 % (0.0-5.0); NEUTROPHILS # 1.9 10^3/uL (1.8-7.7); NEUTROPHILS % 48.3 % (36.0-66.0); PLATELET COUNT, AUTOMATED 282 10^3/uL (150-450); RED CELL DISTRIBUTION WIDTH 22.8 % (11.5-14.5); WHITE BLOOD COUNT 3.9 10^3/uL (4.0-10.0)
[2018-06-11 06:24] LABS: ALBUMIN/GLOBULIN RATIO 1.03 (1.00-1.93); ALKALINE PHOSPHATASE 76 U/L (45-117); ALT/SGPT 25 U/L (12-78); ANION GAP 9 MEQ/L (8-16); AST/SGOT 19 U/L (7-37); BILIRUBIN,TOTAL 0.5 MG/DL (0.2-1.0); BLOOD UREA NITROGEN 7 MG/DL (7-18); CALCIUM LEVEL 8.2 MG/DL (8.5-10.1); CARBON DIOXIDE LEVEL 26 MEQ/L (21-32); CHLORIDE LEVEL 112 MEQ/L (98-107); CREATININE FOR GFR 0.69 MG/DL (0.55-1.30); GLOMERULAR FILTRATION RATE > 60.0 (>60); GLUCOSE, FASTING 83 MG/DL (70-100); POTASSIUM SERUM 3.6 MEQ/L (3.5-5.1); SODIUM LEVEL 147 MEQ/L (136-145); TOTAL PROTEIN 5.9 GM/DL (6.4-8.2)
[2018-06-11] MEDS: FLUoxetine 20 MG CAP PO (07:56)
[2018-06-11 08:49] LABS: LACTIC ACID SEPSIS PROTOCOL 1.5 MMOL/L (0.4-2.0)
[2018-06-11 12:39] LABS: HEMATOCRIT 29.7 % (36.0-47.0); HEMOGLOBIN 9.2 g/dl (12.0-15.5)
[2018-06-11 18:35] LABS: HEMATOCRIT 31.7 % (36.0-47.0); HEMOGLOBIN 9.8 g/dl (12.0-15.5)
[2018-06-11] MEDS: zolPIDEM CR 6.25MG TABLET (AMBIEN CR) PO (21:59)
[2018-06-11 22:22] LABS: VANCOMYCIN LEVEL TROUGH 13.6 UG/ML (10.0-20.0)
[2018-06-12 00:16] LABS: HEMATOCRIT 29.8 % (36.0-47.0); HEMOGLOBIN 9.3 g/dl (12.0-15.5)
[2018-06-12] MEDS: FLUCONAZOLE 400 MG in APPROPRIATE DILUENT 1 EA IV (01:28)
[2018-06-12] MEDS: HYDROMORPHONE HCL 0.5 MG/ 0.5 ML SYRINGE (J1170 PER 1) IV ×2 (04:22→08:13)
[2018-06-12] MEDS: PIPERACILLIN/TAZOBACTAM SOD 4.5 GM in D5W MINI-BAG PLUS 50 ML IV ×4 (04:23→23:29)
[2018-06-12 05:00] LABS: BASO # 0.1 10^3/uL (0.0-0.2); BASO % 1.2 % (0.0-1.0); EOS # 0.5 10^3/uL (0.0-0.50); EOS % 11.2 % (0.0-3.0); HEMATOCRIT 28.9 % (36.0-47.0); HEMOGLOBIN 8.9 g/dl (12.0-15.5); IMMATURE GRANULOCYTE % 0.2 % (0-3.0); LYMPH # 1.2 10^3/uL (1.5-4.5); LYMPH % 29.5 % (24.0-44.0); MEAN CORPUSCULAR HGB CONC 30.8 g/dl (32.0-36.5); MEAN CORPUSCULAR VOLUME 87.6 fl (80.0-96.0); MONO # 0.4 10^3/uL (0.0-0.8); MONO % 9.3 % (0.0-5.0); NEUTROPHILS # 2.1 10^3/uL (1.8-7.7); NEUTROPHILS % 48.6 % (36.0-66.0); PLATELET COUNT, AUTOMATED 255 10^3/uL (150-450); RED CELL DISTRIBUTION WIDTH 23.2 % (11.5-14.5); WHITE BLOOD COUNT 4.2 10^3/uL (4.0-10.0)
[2018-06-12 05:26] LABS: ALBUMIN/GLOBULIN RATIO 1.07 (1.00-1.93); ALKALINE PHOSPHATASE 71 U/L (45-117); ALT/SGPT 25 U/L (12-78); ANION GAP 9 MEQ/L (8-16); AST/SGOT 15 U/L (7-37); BILIRUBIN,TOTAL 0.5 MG/DL (0.2-1.0); BLOOD UREA NITROGEN 5 MG/DL (7-18); CALCIUM LEVEL 8.3 MG/DL (8.5-10.1); CARBON DIOXIDE LEVEL 26 MEQ/L (21-32); CHLORIDE LEVEL 111 MEQ/L (98-107); CREATININE FOR GFR 0.81 MG/DL (0.55-1.30); GLOMERULAR FILTRATION RATE > 60.0 (>60); GLUCOSE, FASTING 77 MG/DL (70-100); POTASSIUM SERUM 3.7 MEQ/L (3.5-5.1); SODIUM LEVEL 146 MEQ/L (136-145); TOTAL PROTEIN 5.8 GM/DL (6.4-8.2)
[2018-06-12] MEDS: PROMETHAZINE INJ 25 MG/ML VIAL (J2550) IV (05:57)
[2018-06-12] MEDS: VANCOMYCIN HCL 1,000 MG, VIAL MATE ADAPTER 1 EACH in D5W 250 ML IV ×2 (05:58→14:38)
[2018-06-12] MEDS: PANTOPRAZOLE SODIUM 40 MG in D5W 50 ML IV (05:58)
[2018-06-12] MEDS: FLUoxetine 20 MG CAP PO (08:22)
[2018-06-12] MEDS: SODIUM CHLORIDE 0.9% INJ 10 ML SYR IV ×3 (11:29→17:30)
[2018-06-12] MEDS: HYDROmorphone 2 MG TAB PO ×3 (11:42→23:33)
[2018-06-12 11:47] LABS: C REACTIVE PROTEIN QUANTITATIV < 0.30 MG/DL (0.00-0.30)
[2018-06-12 11:58] LABS: ERYTHROCYTE SEDIMENTATION RATE 29 mm/hr (0-20)
[2018-06-12] MEDS: ONDANSETRON 4MG/2ML VIAL (J2405) IV (14:37)
[2018-06-12] MEDS: TPN IV (18:08)
[2018-06-12] MEDS: zolPIDEM CR 6.25MG TABLET (AMBIEN CR) PO (20:09)
[2018-06-13] MEDS: ONDANSETRON 4MG/2ML VIAL (J2405) IV ×3 (01:31→17:56)
[2018-06-13] MEDS: SODIUM CHLORIDE 0.9% INJ 10 ML SYR IV ×3 (01:31→18:00)
[2018-06-13] MEDS: PIPERACILLIN/TAZOBACTAM SOD 4.5 GM in D5W MINI-BAG PLUS 50 ML IV ×4 (05:53→23:25)
[2018-06-13] MEDS: HYDROmorphone 2 MG TAB PO ×4 (05:54→23:55)
[2018-06-13 06:15] LABS: BASO % 0.9 % (0.0-1.0); EOS # 0.4 10^3/uL (0.0-0.50); EOS % 11.8 % (0.0-3.0); HEMATOCRIT 27.5 % (36.0-47.0); HEMOGLOBIN 8.9 g/dl (12.0-15.5); LYMPH # 0.8 10^3/uL (1.5-4.5); LYMPH % 26.2 % (24.0-44.0); MEAN CORPUSCULAR HEMOGLOBIN 31.1 pg (27.0-33.0); MEAN CORPUSCULAR HGB CONC 32.4 g/dl (32.0-36.5); MEAN CORPUSCULAR VOLUME 96.2 fl (80.0-96.0); MONO # 0.4 10^3/uL (0.0-0.8); MONO % 10.9 % (0.0-5.0); NEUTROPHILS # 1.6 10^3/uL (1.8-7.7); NEUTROPHILS % 50.2 % (36.0-66.0); PLATELET COUNT, AUTOMATED 218 10^3/uL (150-450); RED BLOOD COUNT 2.86 10^6/uL (4.00-5.40); RED CELL DISTRIBUTION WIDTH 22.9 % (11.5-14.5); WHITE BLOOD COUNT 3.2 10^3/uL (4.0-10.0)
[2018-06-13 09:13] LABS: ALBUMIN 3.2 GM/DL (3.2-5.2); ALKALINE PHOSPHATASE 76 U/L (45-117); ALT/SGPT 24 U/L (12-78); ANION GAP 8 MEQ/L (8-16); AST/SGOT 15 U/L (7-37); BILIRUBIN,TOTAL 0.5 MG/DL (0.2-1.0); BLOOD UREA NITROGEN 11 MG/DL (7-18); CALCIUM LEVEL 8.9 MG/DL (8.5-10.1); CARBON DIOXIDE LEVEL 27 MEQ/L (21-32); CHLORIDE LEVEL 109 MEQ/L (98-107); CREATININE FOR GFR 0.85 MG/DL (0.55-1.30); GLOMERULAR FILTRATION RATE > 60.0 (>60); GLUCOSE, FASTING 102 MG/DL (70-100); MAGNESIUM LEVEL 2.2 MG/DL (1.8-2.4); POTASSIUM SERUM 4.3 MEQ/L (3.5-5.1); SODIUM LEVEL 144 MEQ/L (136-145); TOTAL PROTEIN 6.4 GM/DL (6.4-8.2)
[2018-06-13] MEDS: FLUoxetine 20 MG CAP PO (09:32)
[2018-06-13] MEDS: PROMETHAZINE INJ 25 MG/ML VIAL (J2550) IV (14:42)
[2018-06-13] MEDS ORDERED: LIDOCAINE 2% INJ 100 MG/5 ML SDV (FOR ANES.) As Ordered (16:03)
[2018-06-13] MEDS ORDERED: ONDANSETRON 4MG/2ML VIAL (J2405) As Ordered (16:03)
[2018-06-13] MEDS ORDERED: PROPOFOL 200 MG/20 ML VIAL As Ordered (16:03)
[2018-06-13] MEDS ORDERED: dexameTHASONE 4 MG/ML 1ML VIAL (J1100) As Ordered (16:03)
[2018-06-13] MEDS ORDERED: fentaNYL 100 MCG/2 ML INJECTION (J3010) As Ordered (16:04)
[2018-06-13] MEDS ORDERED: MIDAZOLAM INJ 2 MG/2 ML VIAL (J2250) As Ordered (16:04)
[2018-06-13] MEDS: CETACAINE SPRAY 5GM As Ordered (16:42)
[2018-06-13] MEDS: LR 1,000 ML IV (17:15)
[2018-06-13] MEDS: TPN IV (18:00)
[2018-06-13] MEDS: zolPIDEM CR 6.25MG TABLET (AMBIEN CR) PO (20:36)
[2018-06-14] MEDS: PIPERACILLIN/TAZOBACTAM SOD 4.5 GM in D5W MINI-BAG PLUS 50 ML IV ×4 (05:16→23:18)
[2018-06-14 05:40] LABS: BASO % 0.6 % (0.0-1.0); HEMOGLOBIN 9.3 g/dl (12.0-15.5); IMMATURE GRANULOCYTE % 0.6 % (0-3.0); LYMPH # 0.5 10^3/uL (1.5-4.5); LYMPH % 14.7 % (24.0-44.0); MEAN CORPUSCULAR HEMOGLOBIN 32.4 pg (27.0-33.0); MEAN CORPUSCULAR VOLUME 104.5 fl (80.0-96.0); MONO # 0.3 10^3/uL (0.0-0.8); MONO % 7.8 % (0.0-5.0); NEUTROPHILS # 2.6 10^3/uL (1.8-7.7); NEUTROPHILS % 76.3 % (36.0-66.0); PLATELET COUNT, AUTOMATED 243 10^3/uL (150-450); RED BLOOD COUNT 2.87 10^6/uL (4.00-5.40); WHITE BLOOD COUNT 3.3 10^3/uL (4.0-10.0)
[2018-06-14] MEDS: SODIUM CHLORIDE 0.9% INJ 10 ML SYR IV ×2 (06:46→18:02)
[2018-06-14 08:33] LABS: ALBUMIN 3.2 GM/DL (3.2-5.2); ALBUMIN/GLOBULIN RATIO 0.97 (1.00-1.93); ALKALINE PHOSPHATASE 77 U/L (45-117); ALT/SGPT 19 U/L (12-78); ANION GAP 8 MEQ/L (8-16); AST/SGOT 12 U/L (7-37); BILIRUBIN,TOTAL 0.4 MG/DL (0.2-1.0); BLOOD UREA NITROGEN 14 MG/DL (7-18); CALCIUM LEVEL 8.6 MG/DL (8.5-10.1); CARBON DIOXIDE LEVEL 26 MEQ/L (21-32); CHLORIDE LEVEL 109 MEQ/L (98-107); GLOMERULAR FILTRATION RATE > 60.0 (>60); GLUCOSE, FASTING 180 MG/DL (70-100); MAGNESIUM LEVEL 2.1 MG/DL (1.8-2.4); POTASSIUM SERUM 4.3 MEQ/L (3.5-5.1); SODIUM LEVEL 143 MEQ/L (136-145); TOTAL PROTEIN 6.5 GM/DL (6.4-8.2)
[2018-06-14] MEDS: oxyCODONE 5MG TAB PO ×4 (08:55→23:18)
[2018-06-14] MEDS: ONDANSETRON 4MG/2ML VIAL (J2405) IV ×2 (08:55→18:06)
[2018-06-14] MEDS: FLUoxetine 20 MG CAP PO (08:56)
[2018-06-14] MEDS: TPN IV (18:02)
[2018-06-14] MEDS: zolPIDEM CR 6.25MG TABLET (AMBIEN CR) PO (20:06)
[2018-06-15] MEDS: SODIUM CHLORIDE 0.9% INJ 10 ML SYR IV ×3 (00:59→17:04)
[2018-06-15] MEDS: PIPERACILLIN/TAZOBACTAM SOD 4.5 GM in D5W MINI-BAG PLUS 50 ML IV ×4 (05:14→23:02)
[2018-06-15] MEDS: oxyCODONE 5MG TAB PO ×5 (05:15→23:03)
[2018-06-15 05:31] LABS: BASO % 1.1 % (0.0-1.0); EOS # 0.2 10^3/uL (0.0-0.50); EOS % 8.6 % (0.0-3.0); HEMATOCRIT 29.1 % (36.0-47.0); HEMOGLOBIN 9.2 g/dl (12.0-15.5); IMMATURE GRANULOCYTE % 0.4 % (0-3.0); LYMPH % 36.6 % (24.0-44.0); MEAN CORPUSCULAR HEMOGLOBIN 30.4 pg (27.0-33.0); MEAN CORPUSCULAR HGB CONC 31.6 g/dl (32.0-36.5); MONO # 0.4 10^3/uL (0.0-0.8); MONO % 14.7 % (0.0-5.0); NEUTROPHILS # 1.1 10^3/uL (1.8-7.7); NEUTROPHILS % 38.6 % (36.0-66.0); PLATELET COUNT, AUTOMATED 178 10^3/uL (150-450); RED BLOOD COUNT 3.03 10^6/uL (4.00-5.40); RED CELL DISTRIBUTION WIDTH 23.5 % (11.5-14.5); WHITE BLOOD COUNT 2.8 10^3/uL (4.0-10.0)
[2018-06-15 07:33] LABS: ALT/SGPT 16 U/L (12-78); ANION GAP 6 MEQ/L (8-16); AST/SGOT 11 U/L (7-37); BLOOD UREA NITROGEN 15 MG/DL (7-18); CALCIUM LEVEL 8.4 MG/DL (8.5-10.1); CARBON DIOXIDE LEVEL 29 MEQ/L (21-32); CHLORIDE LEVEL 108 MEQ/L (98-107); CREATININE FOR GFR 0.72 MG/DL (0.55-1.30); GLOMERULAR FILTRATION RATE > 60.0 (>60); GLUCOSE, FASTING 105 MG/DL (70-100); POTASSIUM SERUM 4.1 MEQ/L (3.5-5.1); SODIUM LEVEL 143 MEQ/L (136-145)
[2018-06-15 07:34] LABS: ALBUMIN/GLOBULIN RATIO 1.03 (1.00-1.93); ALKALINE PHOSPHATASE 58 U/L (45-117); BILIRUBIN,TOTAL 0.4 MG/DL (0.2-1.0); MAGNESIUM LEVEL 2.2 MG/DL (1.8-2.4); TOTAL PROTEIN 5.9 GM/DL (6.4-8.2)
[2018-06-15] MEDS: FLUoxetine 20 MG CAP PO (08:36)
[2018-06-15] MEDS: ONDANSETRON 4MG/2ML VIAL (J2405) IV ×2 (08:36→23:03)
[2018-06-15] MEDS: AMINO AC/ELECTROLYTE/DEX/CALC 2,000 ML IV (17:49)
[2018-06-15] MEDS: FAT EMULSION IV 20% 500 ML IV (17:50)
[2018-06-15] MEDS: zolPIDEM CR 6.25MG TABLET (AMBIEN CR) PO (20:07)
[2018-06-16] MEDS: oxyCODONE 5MG TAB PO ×4 (05:00→17:50)
[2018-06-16] MEDS: SODIUM CHLORIDE 0.9% INJ 10 ML SYR IV ×2 (05:01→18:00)
[2018-06-16] MEDS: PIPERACILLIN/TAZOBACTAM SOD 4.5 GM in D5W MINI-BAG PLUS 50 ML IV ×3 (05:01→17:35)
[2018-06-16 05:24] LABS: EOS # 0.4 10^3/uL (0.0-0.50); EOS % 12.5 % (0.0-3.0); HEMOGLOBIN 9.6 g/dl (12.0-15.5); IMMATURE GRANULOCYTE % 0.6 % (0-3.0); LYMPH # 1.3 10^3/uL (1.5-4.5); LYMPH % 40.2 % (24.0-44.0); MEAN CORPUSCULAR HEMOGLOBIN 27.4 pg (27.0-33.0); MEAN CORPUSCULAR VOLUME 85.7 fl (80.0-96.0); MONO # 0.6 10^3/uL (0.0-0.8); MONO % 19.6 % (0.0-5.0); NEUTROPHILS % 26.1 % (36.0-66.0); PLATELET COUNT, AUTOMATED 209 10^3/uL (150-450); RED CELL DISTRIBUTION WIDTH 23.2 % (11.5-14.5); WHITE BLOOD COUNT 3.1 10^3/uL (4.0-10.0)
[2018-06-16 05:33] LABS: NEUTROPHILS # 0.8 10^3/uL (1.8-7.7); POSITIVE DIFF POS FLAG
[2018-06-16 05:39] LABS: ALBUMIN 3.1 GM/DL (3.2-5.2); ALBUMIN/GLOBULIN RATIO 1.03 (1.00-1.93); ALKALINE PHOSPHATASE 66 U/L (45-117); ALT/SGPT 18 U/L (12-78); ANION GAP 5 MEQ/L (8-16); AST/SGOT 18 U/L (7-37); BILIRUBIN,TOTAL 0.4 MG/DL (0.2-1.0); BLOOD UREA NITROGEN 13 MG/DL (7-18); CALCIUM LEVEL 8.5 MG/DL (8.5-10.1); CARBON DIOXIDE LEVEL 30 MEQ/L (21-32); CHLORIDE LEVEL 106 MEQ/L (98-107); CREATININE FOR GFR 0.73 MG/DL (0.55-1.30); GLOMERULAR FILTRATION RATE > 60.0 (>60); GLUCOSE, FASTING 89 MG/DL (70-100); POTASSIUM SERUM 4.4 MEQ/L (3.5-5.1); SODIUM LEVEL 141 MEQ/L (136-145); TOTAL PROTEIN 6.1 GM/DL (6.4-8.2)
[2018-06-16] MEDS: FLUoxetine 20 MG CAP PO (10:11)
[2018-06-16] MEDS: ONDANSETRON 4MG/2ML VIAL (J2405) IV (10:22)
== END 2018-06-16 19:15 | disposition home health service (06) | DRG 721 ==
LOC: M MS5PR 06-14 15:09 → M ED 11:35 → M ED INP 20:46 → M PCU 22:21
PROC: B246ZZ4 Ultrasonography of Right and Left Heart, Transesophageal (ICD-10-PCS; principal; 2018-06-13 11:45)
PROC: 3E0336Z Introduction of Nutritional Substance into Peripheral Vein, Percutaneous Approach (ICD-10-PCS; 2018-06-13 16:32)
DX: T80.219A Unspecified infection due to central venous catheter, initial encounter (principal); I26.90 Septic pulmonary embolism without acute cor pulmonale; K91.2 Postsurgical malabsorption, not elsewhere classified; K92.0 Hematemesis; E46 Unspecified protein-calorie malnutrition; R78.81 Bacteremia; K31.84 Gastroparesis; F32.9 Major depressive disorder, single episode, unspecified; F41.9 Anxiety disorder, unspecified; G47.00 Insomnia, unspecified; Z98.84 Bariatric surgery status; Z79.899 Other long term (current) drug therapy; Z88.2 Allergy status to sulfonamides; Z88.5 Allergy status to narcotic agent; Z88.6 Allergy status to analgesic agent; Z88.8 Allergy status to other drugs, medicaments and biological substances; Z88.1 Allergy status to other antibiotic agents; Z91.018 Allergy to other foods; Z90.49 Acquired absence of other specified parts of digestive tract; Z66 Do not resuscitate; Z86.14 Personal history of Methicillin resistant Staphylococcus aureus infection

== ENCOUNTER → 2018-06-10 | Outpatient (REF) | payer OTHER ==
[2018-06-10 12:46] LABS: BASO # 0.1 10^3/uL (0.0-0.2); BASO % 0.9 % (0.0-1.0); EOS # 0.3 10^3/uL (0.0-0.50); EOS % 5.2 % (0.0-3.0); HEMATOCRIT 36.3 % (36.0-47.0); HEMOGLOBIN 11.2 g/dl (12.0-15.5); IMMATURE GRANULOCYTE % 0.4 % (0-3.0); LYMPH # 1.4 10^3/uL (1.5-4.5); LYMPH % 25.5 % (24.0-44.0); MEAN CORPUSCULAR HEMOGLOBIN 26.1 pg (27.0-33.0); MEAN CORPUSCULAR HGB CONC 30.9 g/dl (32.0-36.5); MEAN CORPUSCULAR VOLUME 84.6 fl (80.0-96.0); MONO # 0.3 10^3/uL (0.0-0.8); MONO % 5.4 % (0.0-5.0); NEUTROPHILS # 3.5 10^3/uL (1.8-7.7); NEUTROPHILS % 62.6 % (36.0-66.0); PLATELET COUNT, AUTOMATED 404 10^3/uL (150-450); RED BLOOD COUNT 4.29 10^6/uL (4.00-5.40); RED CELL DISTRIBUTION WIDTH 22.8 % (11.5-14.5); WHITE BLOOD COUNT 5.6 10^3/uL (4.0-10.0)
[2018-06-10 13:18] LABS: ALBUMIN 3.8 GM/DL (3.2-5.2); ALBUMIN/GLOBULIN RATIO 1.06 (1.00-1.93); ALKALINE PHOSPHATASE 100 U/L (45-117); ALT/SGPT 30 U/L (12-78); ANION GAP 11 MEQ/L (8-16); AST/SGOT 17 U/L (7-37); BILIRUBIN,TOTAL 0.7 MG/DL (0.2-1.0); BLOOD UREA NITROGEN 12 MG/DL (7-18); CALCIUM LEVEL 9.5 MG/DL (8.5-10.1); CARBON DIOXIDE LEVEL 25 MEQ/L (21-32); CHLORIDE LEVEL 103 MEQ/L (98-107); GLOMERULAR FILTRATION RATE > 60.0 (>60); GLUCOSE, FASTING 103 MG/DL (70-100); PHOSPHORUS LEVEL 3.5 MG/DL (2.5-4.9); POTASSIUM SERUM 4.1 MEQ/L (3.5-5.1); PREALBUMIN 42.4 MG/DL (20.0-40.0); SODIUM LEVEL 139 MEQ/L (136-145); TOTAL PROTEIN 7.4 GM/DL (6.4-8.2); TRIGLYCERIDES LEVEL 72 MG/DL (<150)
== END ==
LOC: M LAB REF 12:26
DX: Z00.00 Encounter for general adult medical examination without abnormal findings (principal)

== ENCOUNTER → 2018-06-10 | Outpatient (REF) | payer OTHER ==
[2018-06-10 12:41] LABS: BASO # 0.1 10^3/uL (0.0-0.2); BASO % 0.9 % (0.0-1.0); EOS # 0.3 10^3/uL (0.0-0.50); EOS % 5.2 % (0.0-3.0); HEMATOCRIT 36.3 % (36.0-47.0); HEMOGLOBIN 11.2 g/dl (12.0-15.5); IMMATURE GRANULOCYTE % 0.4 % (0-3.0); LYMPH # 1.4 10^3/uL (1.5-4.5); LYMPH % 25.5 % (24.0-44.0); MEAN CORPUSCULAR HEMOGLOBIN 26.1 pg (27.0-33.0); MEAN CORPUSCULAR HGB CONC 30.9 g/dl (32.0-36.5); MEAN CORPUSCULAR VOLUME 84.6 fl (80.0-96.0); MONO # 0.3 10^3/uL (0.0-0.8); MONO % 5.4 % (0.0-5.0); NEUTROPHILS # 3.5 10^3/uL (1.8-7.7); NEUTROPHILS % 62.6 % (36.0-66.0); PLATELET COUNT, AUTOMATED 404 10^3/uL (150-450); RED BLOOD COUNT 4.29 10^6/uL (4.00-5.40); RED CELL DISTRIBUTION WIDTH 22.8 % (11.5-14.5); WHITE BLOOD COUNT 5.6 10^3/uL (4.0-10.0)
[2018-06-10 13:04] LABS: ALBUMIN 3.9 GM/DL (3.2-5.2); ALBUMIN/GLOBULIN RATIO 1.11 (1.00-1.93); ALKALINE PHOSPHATASE 103 U/L (45-117); ALT/SGPT 30 U/L (12-78); ANION GAP 13 MEQ/L (8-16); AST/SGOT 16 U/L (7-37); BILIRUBIN,TOTAL 0.7 MG/DL (0.2-1.0); BLOOD UREA NITROGEN 13 MG/DL (7-18); C REACTIVE PROTEIN QUANTITATIV < 0.30 MG/DL (0.00-0.30); CALCIUM LEVEL 9.4 MG/DL (8.5-10.1); CARBON DIOXIDE LEVEL 24 MEQ/L (21-32); CHLORIDE LEVEL 102 MEQ/L (98-107); CREATININE FOR GFR 0.93 MG/DL (0.55-1.30); ERYTHROCYTE SEDIMENTATION RATE 22 mm/hr (0-20); GLOMERULAR FILTRATION RATE > 60.0 (>60); GLUCOSE, FASTING 102 MG/DL (70-100); SODIUM LEVEL 139 MEQ/L (136-145); TOTAL PROTEIN 7.4 GM/DL (6.4-8.2)
== END ==
LOC: M LAB REF 12:28
DX: R78.81 Bacteremia (principal); Z79.2 Long term (current) use of antibiotics
CPT/HCPCS: 93312

== ENCOUNTER → 2018-06-30 | Outpatient (REF) | payer OTHER ==
[2018-06-30 20:01] LABS: ERYTHROCYTE SEDIMENTATION RATE 44 mm/hr (0-20)
[2018-07-01 04:39] LABS: C REACTIVE PROTEIN QUANTITATIV 0.32 MG/DL (0.00-0.30)
== END ==
LOC: M LAB REF 17:20
DX: R78.81 Bacteremia (principal); Z79.2 Long term (current) use of antibiotics

== ENCOUNTER → 2018-06-30 | Outpatient (REF) | payer OTHER ==
[2018-06-30 18:47] LABS: BASO % 0.5 % (0.0-1.0); EOS # 0.2 10^3/uL (0.0-0.50); EOS % 3.2 % (0.0-3.0); HEMATOCRIT 34.3 % (36.0-47.0); HEMOGLOBIN 11.3 g/dl (12.0-15.5); IMMATURE GRANULOCYTE % 0.7 % (0-3.0); LYMPH % 13.7 % (24.0-44.0); MEAN CORPUSCULAR HEMOGLOBIN 28.3 pg (27.0-33.0); MEAN CORPUSCULAR HGB CONC 32.9 g/dl (32.0-36.5); MONO # 0.4 10^3/uL (0.0-0.8); MONO % 5.1 % (0.0-5.0); NEUTROPHILS # 5.8 10^3/uL (1.8-7.7); NEUTROPHILS % 76.8 % (36.0-66.0); PLATELET COUNT, AUTOMATED 403 10^3/uL (150-450); RED BLOOD COUNT 3.99 10^6/uL (4.00-5.40); RED CELL DISTRIBUTION WIDTH 20.6 % (11.5-14.5); WHITE BLOOD COUNT 7.5 10^3/uL (4.0-10.0)
[2018-06-30 22:54] LABS: ALBUMIN 3.7 GM/DL (3.2-5.2); ALKALINE PHOSPHATASE 103 U/L (45-117); ALT/SGPT 70 U/L (12-78); ANION GAP 11 MEQ/L (8-16); AST/SGOT 62 U/L (7-37); BILIRUBIN,TOTAL 0.3 MG/DL (0.2-1.0); BLOOD UREA NITROGEN 9 MG/DL (7-18); CALCIUM LEVEL 9.4 MG/DL (8.5-10.1); CARBON DIOXIDE LEVEL 23 MEQ/L (21-32); CHLORIDE LEVEL 107 MEQ/L (98-107); CREATININE FOR GFR 0.52 MG/DL (0.55-1.30); GLOMERULAR FILTRATION RATE > 60.0 (>60); GLUCOSE, FASTING 82 MG/DL (70-100); PHOSPHORUS LEVEL 4.8 MG/DL (2.5-4.9); POTASSIUM SERUM 3.8 MEQ/L (3.5-5.1); PREALBUMIN 43.8 MG/DL (20.0-40.0); SODIUM LEVEL 141 MEQ/L (136-145); TOTAL PROTEIN 7.7 GM/DL (6.4-8.2); TRIGLYCERIDES LEVEL 183 MG/DL (<150)
[2018-06-30 23:10] LABS: ALBUMIN/GLOBULIN RATIO 0.93 (1.00-1.93)
== END ==
LOC: M LAB REF 17:17
DX: Z79.2 Long term (current) use of antibiotics (principal); R78.81 Bacteremia

== ENCOUNTER 2018-07-12 18:46 | Emergency (ER) | payer BC, OTHER ==
[2018-07-12] MEDS: NS 1,000 ML IV (20:02)
[2018-07-12 20:06] LABS: BASO % 0.8 % (0.0-1.0); EOS # 0.3 10^3/uL (0.0-0.50); EOS % 6.3 % (0.0-3.0); HEMATOCRIT 33.3 % (36.0-47.0); HEMOGLOBIN 10.8 g/dl (12.0-15.5); IMMATURE GRANULOCYTE % 0.4 % (0-3.0); LYMPH # 1.7 10^3/uL (1.5-4.5); LYMPH % 34.5 % (24.0-44.0); MEAN CORPUSCULAR HEMOGLOBIN 27.8 pg (27.0-33.0); MEAN CORPUSCULAR HGB CONC 32.4 g/dl (32.0-36.5); MEAN CORPUSCULAR VOLUME 85.8 fl (80.0-96.0); MONO # 0.5 10^3/uL (0.0-0.8); NEUTROPHILS # 2.4 10^3/uL (1.8-7.7); PLATELET COUNT, AUTOMATED 309 10^3/uL (150-450); RED BLOOD COUNT 3.88 10^6/uL (4.00-5.40); RED CELL DISTRIBUTION WIDTH 17.9 % (11.5-14.5); WHITE BLOOD COUNT 4.9 10^3/uL (4.0-10.0)
[2018-07-12 20:14] LABS: KETONE, URINE AUTO RFX NEGATIVE (NEGATIVE); LEUKOCYTE ESTERASE UR AUTO RFX NEGATIVE (NEGATIVE); MUCUS, URINE RFX SMALL (NEGATIVE); NITRITE, URINE AUTO RFX NEGATIVE (NEGATIVE); RBC, URINE AUTO RFX 123 /HPF (0-3); SPECIFIC GRAVITY UR AUTO RFX 1.002 (1.002-1.035); SQUAM EPITHELIAL CELL UR AURFX 3 /HPF (0-6); WBC, URINE AUTO RFX 7 /HPF (0-3)
[2018-07-12 20:17] LABS: INR 0.91; PROTHROMBIN TIME 12.3 SECONDS (12.1-14.4)
[2018-07-12 20:18] LABS: PARTIAL THROMBOPLASTIN TIME 36.7 SECONDS (25.4-37.6)
[2018-07-12 20:24] LABS: LACTIC ACID SEPSIS PROTOCOL 1.4 MMOL/L (0.4-2.0)
[2018-07-12] MEDS: HYDROMORPHONE HCL 0.5 MG/ 0.5 ML SYRINGE (J1170 PER 1) IV ×2 (20:40→23:49)
[2018-07-12] MEDS: ONDANSETRON 4MG/2ML VIAL (J2405) IV (20:40)
[2018-07-12 20:47] LABS: ALBUMIN 3.8 GM/DL (3.2-5.2); ALBUMIN/GLOBULIN RATIO 1.12 (1.00-1.93); ALKALINE PHOSPHATASE 85 U/L (45-117); ALT/SGPT 23 U/L (12-78); ANION GAP 10 MEQ/L (8-16); AST/SGOT 19 U/L (7-37); BILIRUBIN,DIRECT 0.1 MG/DL (0.0-0.2); BILIRUBIN,TOTAL 0.4 MG/DL (0.2-1.0); BLOOD UREA NITROGEN 10 MG/DL (7-18); C REACTIVE PROTEIN QUANTITATIV 0.53 MG/DL (0.00-0.30); CALCIUM LEVEL 8.9 MG/DL (8.5-10.1); CARBON DIOXIDE LEVEL 24 MEQ/L (21-32); CHLORIDE LEVEL 109 MEQ/L (98-107); CREATININE FOR GFR 0.76 MG/DL (0.55-1.30); GLOMERULAR FILTRATION RATE > 60.0 (>60); GLUCOSE, FASTING 94 MG/DL (70-100); LIPASE 366 U/L (73-393); POTASSIUM SERUM 3.9 MEQ/L (3.5-5.1); SODIUM LEVEL 143 MEQ/L (136-145); TOTAL PROTEIN 7.2 GM/DL (6.4-8.2)
[2018-07-12] MEDS: PROMETHAZINE INJ 25 MG/ML VIAL (J2550) IV (22:03)
[2018-07-12] MEDS ORDERED: ISOVUE-370 76% 100ML VIAL (Q9967) As Ordered (22:14)
[2018-07-13] MEDS: TAMSULOSIN 0.4 MG CAP PO (00:34)
== END 2018-07-13 01:08 | disposition home or self-care (01) ==
LOC: M ED 07-13 01:08
DX: N20.1 Calculus of ureter (principal); K27.9 Peptic ulcer, site unspecified, unspecified as acute or chronic, without hemorrhage or perforation; K31.84 Gastroparesis; Z98.84 Bariatric surgery status; Z79.899 Other long term (current) drug therapy; Z88.1 Allergy status to other antibiotic agents; Z88.2 Allergy status to sulfonamides; Z88.5 Allergy status to narcotic agent; Z88.8 Allergy status to other drugs, medicaments and biological substances; Z91.018 Allergy to other foods
CPT/HCPCS: J2405

== ENCOUNTER 2018-07-14 11:36 | Observation (INO) | payer BC, OTHER ==
[2018-07-14 12:14] LABS: KETONE, URINE AUTO RFX NEGATIVE (NEGATIVE); NITRITE, URINE AUTO RFX POSITIVE (NEGATIVE); SPECIFIC GRAVITY UR AUTO RFX 1.005 (1.002-1.035)
[2018-07-14 12:20] LABS: LEUKOCYTE ESTERASE UR AUTO RFX 2+ (NEGATIVE); RBC, URINE AUTO RFX TNTC /HPF (0-3); WBC, URINE AUTO RFX 6 /HPF (0-3)
[2018-07-14] MEDS: NS 1,000 ML IV (12:33)
[2018-07-14] MEDS: ONDANSETRON 4MG/2ML VIAL (J2405) IV ×2 (12:34→18:10)
[2018-07-14] MEDS: MORPHINE 2 MG/ML 1ML SYRINGE (J2270) IV (12:35)
[2018-07-14] MEDS: LORazepam 2 MG/ML VIAL (J2060) IV (12:36)
[2018-07-14 12:41] LABS: BASO % 0.7 % (0.0-1.0); EOS # 0.3 10^3/uL (0.0-0.50); EOS % 6.2 % (0.0-3.0); HEMATOCRIT 32.1 % (36.0-47.0); HEMOGLOBIN 10.3 g/dl (12.0-15.5); IMMATURE GRANULOCYTE % 0.2 % (0-3.0); LYMPH # 1.1 10^3/uL (1.5-4.5); LYMPH % 24.2 % (24.0-44.0); MEAN CORPUSCULAR HGB CONC 32.1 g/dl (32.0-36.5); MEAN CORPUSCULAR VOLUME 87.2 fl (80.0-96.0); MONO # 0.3 10^3/uL (0.0-0.8); MONO % 7.1 % (0.0-5.0); NEUTROPHILS # 2.8 10^3/uL (1.8-7.7); NEUTROPHILS % 61.6 % (36.0-66.0); PLATELET COUNT, AUTOMATED 252 10^3/uL (150-450); RED BLOOD COUNT 3.68 10^6/uL (4.00-5.40); RED CELL DISTRIBUTION WIDTH 17.3 % (11.5-14.5); WHITE BLOOD COUNT 4.5 10^3/uL (4.0-10.0)
[2018-07-14 13:04] LABS: ALBUMIN 3.7 GM/DL (3.2-5.2); ALBUMIN/GLOBULIN RATIO 1.19 (1.00-1.93); ALKALINE PHOSPHATASE 77 U/L (45-117); ALT/SGPT 24 U/L (12-78); ANION GAP 8 MEQ/L (8-16); AST/SGOT 19 U/L (7-37); BILIRUBIN,DIRECT 0.1 MG/DL (0.0-0.2); BILIRUBIN,TOTAL 0.4 MG/DL (0.2-1.0); BLOOD UREA NITROGEN 8 MG/DL (7-18); CARBON DIOXIDE LEVEL 26 MEQ/L (21-32); CHLORIDE LEVEL 109 MEQ/L (98-107); CREATININE FOR GFR 0.77 MG/DL (0.55-1.30); GLOMERULAR FILTRATION RATE > 60.0 (>60); GLUCOSE, FASTING 95 MG/DL (70-100); LIPASE 273 U/L (73-393); POTASSIUM SERUM 3.8 MEQ/L (3.5-5.1); SODIUM LEVEL 143 MEQ/L (136-145); TOTAL PROTEIN 6.8 GM/DL (6.4-8.2)
[2018-07-14] MEDS: METOCLOPRAMIDE INJ 10MG/2ML VIAL (J2765) IV (14:26)
[2018-07-14] MEDS: MORPHINE 4 MG/ML 1ML VIAL/SYRINGE (J2270) IV (15:57)
[2018-07-14] MEDS: D5W/0.45% SODIUM CHLORIDE 1,000 ML IV (16:17)
[2018-07-14] MEDS: GASTROGRAFIN SOLUTION 30ML PO ×2 (16:35→17:45)
[2018-07-14] MEDS: PIPERACILLIN/TAZOBACTAM SOD 3.375 GM in D5W MINI-BAG PLUS 50 ML IV (18:13)
[2018-07-14] MEDS: LORazepam 0.5 MG TAB PO (18:21)
[2018-07-14] MEDS ORDERED: ISOVUE-370 76% 100ML VIAL (Q9967) As Ordered (18:24)
[2018-07-14 19:53] LABS: LACTIC ACID SEPSIS PROTOCOL 1.6 MMOL/L (0.4-2.0)
[2018-07-14] MEDS: zolPIDEM CR 6.25MG TABLET (AMBIEN CR) PO (22:16)
[2018-07-14] MEDS: PHENAZOPYRIDINE 100 MG TAB PO (22:16)
[2018-07-15] MEDS: PIPERACILLIN/TAZOBACTAM SOD 3.375 GM in D5W MINI-BAG PLUS 50 ML IV ×3 (00:27→12:12)
[2018-07-15] MEDS: NORCO, ANEXSIA 5/325MG TABLET (HYDROcodone/ACETAMINOPHEN) PO ×2 (00:32→09:39)
[2018-07-15] MEDS: PROMETHAZINE INJ 25 MG/ML VIAL (J2550) IM (01:02)
[2018-07-15] MEDS: RAMELTEON 8 MG TAB (ROZEREM) PO (01:13)
[2018-07-15] MEDS: oxyCODONE 5MG TAB PO (01:40)
[2018-07-15] MEDS: ACETAMINOPHEN TAB 650MG DOSE (2X325MG) PO (05:41)
[2018-07-15] MEDS: LORazepam 0.5 MG TAB PO ×2 (05:41→13:28)
[2018-07-15 05:59] LABS: BASO % 0.8 % (0.0-1.0); EOS # 0.3 10^3/uL (0.0-0.50); EOS % 7.6 % (0.0-3.0); HEMATOCRIT 28.8 % (36.0-47.0); HEMOGLOBIN 9.3 g/dl (12.0-15.5); IMMATURE GRANULOCYTE % 0.3 % (0-3.0); LYMPH # 1.1 10^3/uL (1.5-4.5); LYMPH % 28.5 % (24.0-44.0); MEAN CORPUSCULAR HEMOGLOBIN 28.2 pg (27.0-33.0); MEAN CORPUSCULAR HGB CONC 32.3 g/dl (32.0-36.5); MEAN CORPUSCULAR VOLUME 87.3 fl (80.0-96.0); MONO # 0.3 10^3/uL (0.0-0.8); MONO % 8.2 % (0.0-5.0); NEUTROPHILS % 54.6 % (36.0-66.0); PLATELET COUNT, AUTOMATED 227 10^3/uL (150-450); RED CELL DISTRIBUTION WIDTH 17.2 % (11.5-14.5); WHITE BLOOD COUNT 3.7 10^3/uL (4.0-10.0)
[2018-07-15 06:32] LABS: ANION GAP 11 MEQ/L (8-16); BLOOD UREA NITROGEN 6 MG/DL (7-18); CALCIUM LEVEL 8.2 MG/DL (8.5-10.1); CARBON DIOXIDE LEVEL 25 MEQ/L (21-32); CHLORIDE LEVEL 108 MEQ/L (98-107); CREATININE FOR GFR 0.72 MG/DL (0.55-1.30); GLOMERULAR FILTRATION RATE > 60.0 (>60); GLUCOSE, FASTING 78 MG/DL (70-100); MAGNESIUM LEVEL 1.9 MG/DL (1.8-2.4); POTASSIUM SERUM 3.8 MEQ/L (3.5-5.1); SODIUM LEVEL 144 MEQ/L (136-145)
[2018-07-15] MEDS ORDERED: NORCO, ANEXSIA 5/325MG TABLET (HYDROcodone/ACETAMINOPHEN) PO (07:30)
[2018-07-15] MEDS: PROMETHAZINE INJ 25 MG/ML VIAL (J2550) IV (08:19)
[2018-07-15] MEDS: MORPHINE 4 MG/ML 1ML VIAL/SYRINGE (J2270) IV (08:19)
[2018-07-15] MEDS: FLUoxetine 20 MG CAP PO (09:52)
[2018-07-15] MEDS: PHENAZOPYRIDINE 100 MG TAB PO (09:53)
[2018-07-15] MEDS: TAMSULOSIN 0.4 MG CAP PO (09:53)
[2018-07-15] MEDS ORDERED: SODIUM CHLORIDE 0.9% INJ 10 ML SYR IV ×4 (12:45→18:00)
[2018-07-15] MEDS ORDERED: GLUCOSE 4 GM CHEW TABLET PO (13:45)
[2018-07-15] MEDS ORDERED: DEXTROSE 50% 50 ML SYRINGE IV (13:45)
[2018-07-15] MEDS ORDERED: GLUCAGON FOR INJ 1 MG VIAL (J1610) SC (13:45)
[2018-07-15] MEDS ORDERED: TPN IV (18:00)
[2018-07-15] MEDS ORDERED: HumaLOG INSULIN (NovoLOG) PER UNIT SC (18:00)
[2018-07-18 00:06] LABS: OXYCODONE SCREEN Negative ng/mL (Cutoff:5)
== END 2018-07-15 15:25 | disposition home or self-care (01) ==
LOC: M ED 11:36 → M ED INP 16:19 → M MS5PR 20:15
DX: R10.9 Unspecified abdominal pain (principal); M54.5 Low back pain; F32.9 Major depressive disorder, single episode, unspecified; F41.9 Anxiety disorder, unspecified; G47.00 Insomnia, unspecified; Z98.84 Bariatric surgery status; Z79.899 Other long term (current) drug therapy; Z88.2 Allergy status to sulfonamides; Z88.8 Allergy status to other drugs, medicaments and biological substances
CPT/HCPCS: J2270

== ENCOUNTER → 2018-07-18 | Outpatient (CLI) | payer OTHER | LOC: M PAIN 14:00 | DX: R10.13 Epigastric pain (principal); Z79.899 Other long term (current) drug therapy; F32.9 Major depressive disorder, single episode, unspecified; F41.9 Anxiety disorder, unspecified; Z86.14 Personal history of Methicillin resistant Staphylococcus aureus infection; Z98.84 Bariatric surgery status; Z88.2 Allergy status to sulfonamides; Z88.1 Allergy status to other antibiotic agents; Z88.6 Allergy status to analgesic agent; Z79.891 Long term (current) use of opiate analgesic | CPT/HCPCS: G0463 ==

== ENCOUNTER → 2018-07-23 | Outpatient (REF) | payer OTHER ==
[2018-07-23 14:42] LABS: BASO # 0.1 10^3/uL (0.0-0.2); BASO % 0.8 % (0.0-1.0); EOS # 0.2 10^3/uL (0.0-0.50); HEMATOCRIT 33.5 % (36.0-47.0); HEMOGLOBIN 10.8 g/dl (12.0-15.5); IMMATURE GRANULOCYTE % 0.3 % (0-3.0); LYMPH # 1.3 10^3/uL (1.5-4.5); LYMPH % 20.6 % (24.0-44.0); MEAN CORPUSCULAR HEMOGLOBIN 28.7 pg (27.0-33.0); MEAN CORPUSCULAR HGB CONC 32.2 g/dl (32.0-36.5); MEAN CORPUSCULAR VOLUME 89.1 fl (80.0-96.0); MONO # 0.5 10^3/uL (0.0-0.8); MONO % 8.5 % (0.0-5.0); NEUTROPHILS # 4.2 10^3/uL (1.8-7.7); NEUTROPHILS % 66.8 % (36.0-66.0); PLATELET COUNT, AUTOMATED 334 10^3/uL (150-450); RED BLOOD COUNT 3.76 10^6/uL (4.00-5.40); RED CELL DISTRIBUTION WIDTH 16.1 % (11.5-14.5); WHITE BLOOD COUNT 6.3 10^3/uL (4.0-10.0)
[2018-07-23 15:25] LABS: ALBUMIN 3.7 GM/DL (3.2-5.2); ALBUMIN/GLOBULIN RATIO 1.16 (1.00-1.93); ALKALINE PHOSPHATASE 70 U/L (45-117); ALT/SGPT 22 U/L (12-78); ANION GAP 10 MEQ/L (8-16); AST/SGOT 20 U/L (7-37); BILIRUBIN,TOTAL 0.4 MG/DL (0.2-1.0); BLOOD UREA NITROGEN 11 MG/DL (7-18); C REACTIVE PROTEIN QUANTITATIV < 0.30 MG/DL (0.00-0.30); CALCIUM LEVEL 8.5 MG/DL (8.5-10.1); CARBON DIOXIDE LEVEL 24 MEQ/L (21-32); CHLORIDE LEVEL 104 MEQ/L (98-107); CREATININE FOR GFR 0.77 MG/DL (0.55-1.30); GLOMERULAR FILTRATION RATE > 60.0 (>60); GLUCOSE, FASTING 81 MG/DL (70-100); PHOSPHORUS LEVEL 4.1 MG/DL (2.5-4.9); POTASSIUM SERUM 4.1 MEQ/L (3.5-5.1); PREALBUMIN 39.6 MG/DL (20.0-40.0); SODIUM LEVEL 138 MEQ/L (136-145); TOTAL PROTEIN 6.9 GM/DL (6.4-8.2); TRIGLYCERIDES LEVEL 143 MG/DL (<150)
[2018-07-23 17:10] LABS: ERYTHROCYTE SEDIMENTATION RATE 10 mm/hr (0-20)
== END ==
LOC: M LAB REF 14:24
DX: B96.5 Pseudomonas (aeruginosa) (mallei) (pseudomallei) as the cause of diseases classified elsewhere (principal); K90.49 Malabsorption due to intolerance, not elsewhere classified

== ENCOUNTER 2018-07-26 13:08 | Emergency (ER) | payer BC, OTHER ==
[2018-07-26 14:10] LABS: BASO # 0.1 10^3/uL (0.0-0.2); BASO % 0.6 % (0.0-1.0); EOS # 0.3 10^3/uL (0.0-0.50); EOS % 3.6 % (0.0-3.0); HEMATOCRIT 34.4 % (36.0-47.0); HEMOGLOBIN 11.3 g/dl (12.0-15.5); IMMATURE GRANULOCYTE % 0.2 % (0-3.0); LYMPH # 1.2 10^3/uL (1.5-4.5); LYMPH % 13.2 % (24.0-44.0); MEAN CORPUSCULAR HEMOGLOBIN 28.7 pg (27.0-33.0); MEAN CORPUSCULAR HGB CONC 32.8 g/dl (32.0-36.5); MEAN CORPUSCULAR VOLUME 87.3 fl (80.0-96.0); MONO # 0.7 10^3/uL (0.0-0.8); MONO % 8.3 % (0.0-5.0); NEUTROPHILS # 6.5 10^3/uL (1.8-7.7); NEUTROPHILS % 74.1 % (36.0-66.0); PLATELET COUNT, AUTOMATED 342 10^3/uL (150-450); RED BLOOD COUNT 3.94 10^6/uL (4.00-5.40); RED CELL DISTRIBUTION WIDTH 15.6 % (11.5-14.5); WHITE BLOOD COUNT 8.7 10^3/uL (4.0-10.0)
[2018-07-26] MEDS: MORPHINE 4 MG/ML 1ML VIAL/SYRINGE (J2270) IV ×2 (14:16→15:15)
[2018-07-26] MEDS: ONDANSETRON 4MG/2ML VIAL (J2405) IV (14:16)
[2018-07-26] MEDS: NS 500 ML IV ×2 (14:16→16:25)
[2018-07-26 14:25] LABS: INR 0.86; PROTHROMBIN TIME 11.8 SECONDS (12.1-14.4)
[2018-07-26 14:32] LABS: LACTIC ACID SEPSIS PROTOCOL 1.2 MMOL/L (0.4-2.0)
[2018-07-26 14:41] LABS: ALBUMIN 3.6 GM/DL (3.2-5.2); ALBUMIN/GLOBULIN RATIO 1.03 (1.00-1.93); ALKALINE PHOSPHATASE 86 U/L (45-117); ALT/SGPT 18 U/L (12-78); AMYLASE 57 U/L (25-115); ANION GAP 9 MEQ/L (8-16); AST/SGOT 18 U/L (7-37); BILIRUBIN,DIRECT 0.1 MG/DL (0.0-0.2); BILIRUBIN,TOTAL 0.3 MG/DL (0.2-1.0); BLOOD UREA NITROGEN 8 MG/DL (7-18); CALCIUM LEVEL 8.6 MG/DL (8.5-10.1); CARBON DIOXIDE LEVEL 26 MEQ/L (21-32); CHLORIDE LEVEL 107 MEQ/L (98-107); CREATININE FOR GFR 0.67 MG/DL (0.55-1.30); GLOMERULAR FILTRATION RATE > 60.0 (>60); GLUCOSE, FASTING 89 MG/DL (70-100); LIPASE 170 U/L (73-393); POTASSIUM SERUM 4.2 MEQ/L (3.5-5.1); SODIUM LEVEL 142 MEQ/L (136-145); TOTAL PROTEIN 7.1 GM/DL (6.4-8.2)
[2018-07-26 15:08] LABS: KETONE, URINE AUTO RFX NEGATIVE (NEGATIVE); LEUKOCYTE ESTERASE UR AUTO RFX NEGATIVE (NEGATIVE); NITRITE, URINE AUTO RFX NEGATIVE (NEGATIVE); RBC, URINE AUTO RFX 0 /HPF (0-3); SPECIFIC GRAVITY UR AUTO RFX 1.008 (1.002-1.035); SQUAM EPITHELIAL CELL UR AURFX 0 /HPF (0-6); WBC, URINE AUTO RFX 0 /HPF (0-3)
[2018-07-26] MEDS: PROMETHAZINE INJ 25 MG/ML VIAL (J2550) IV (15:15)
[2018-07-26] MEDS: HYDROMORPHONE HCL 0.5 MG/ 0.5 ML SYRINGE (J1170 PER 1) IV ×2 (16:25→18:03)
[2018-07-26] MEDS: oxyCODONE 5MG TAB PO (19:12)
== END 2018-07-26 19:24 | disposition home or self-care (01) ==
LOC: M ED 13:08
DX: R10.84 Generalized abdominal pain (principal); F41.9 Anxiety disorder, unspecified; F32.9 Major depressive disorder, single episode, unspecified; Z98.84 Bariatric surgery status; Z91.013 Allergy to seafood
CPT/HCPCS: J2270

== ENCOUNTER → 2018-07-29 | Outpatient (REF) | payer OTHER | LOC: M LAB REF 07-30 10:58 | DX: R78.81 Bacteremia (principal); Z79.2 Long term (current) use of antibiotics ==

== ENCOUNTER → 2018-07-29 | Outpatient (REF) | payer OTHER ==
[2018-07-29 11:00] LABS: BASO % 0.8 % (0.0-1.0); EOS # 0.2 10^3/uL (0.0-0.50); EOS % 4.2 % (0.0-3.0); HEMATOCRIT 33.8 % (36.0-47.0); HEMOGLOBIN 10.7 g/dl (12.0-15.5); IMMATURE GRANULOCYTE % 0.2 % (0-3.0); LYMPH # 1.2 10^3/uL (1.5-4.5); LYMPH % 26.3 % (24.0-44.0); MEAN CORPUSCULAR HEMOGLOBIN 28.3 pg (27.0-33.0); MEAN CORPUSCULAR HGB CONC 31.7 g/dl (32.0-36.5); MEAN CORPUSCULAR VOLUME 89.4 fl (80.0-96.0); MONO # 0.4 10^3/uL (0.0-0.8); MONO % 9.1 % (0.0-5.0); NEUTROPHILS # 2.8 10^3/uL (1.8-7.7); NEUTROPHILS % 59.4 % (36.0-66.0); PLATELET COUNT, AUTOMATED 297 10^3/uL (150-450); RED BLOOD COUNT 3.78 10^6/uL (4.00-5.40); RED CELL DISTRIBUTION WIDTH 15.5 % (11.5-14.5); WHITE BLOOD COUNT 4.7 10^3/uL (4.0-10.0)
[2018-07-29 12:06] LABS: ALBUMIN 3.5 GM/DL (3.2-5.2); ALBUMIN/GLOBULIN RATIO 1.06 (1.00-1.93); ALKALINE PHOSPHATASE 81 U/L (45-117); ALT/SGPT 23 U/L (12-78); ANION GAP 10 MEQ/L (8-16); AST/SGOT 19 U/L (7-37); BILIRUBIN,TOTAL 0.4 MG/DL (0.2-1.0); BLOOD UREA NITROGEN 11 MG/DL (7-18); CALCIUM LEVEL 8.6 MG/DL (8.5-10.1); CARBON DIOXIDE LEVEL 25 MEQ/L (21-32); CHLORIDE LEVEL 105 MEQ/L (98-107); CREATININE FOR GFR 0.59 MG/DL (0.55-1.30); GLOMERULAR FILTRATION RATE > 60.0 (>60); GLUCOSE, FASTING 80 MG/DL (70-100); MAGNESIUM LEVEL 1.9 MG/DL (1.8-2.4); PHOSPHORUS LEVEL 3.6 MG/DL (2.5-4.9); POTASSIUM SERUM 4.2 MEQ/L (3.5-5.1); PREALBUMIN 38.2 MG/DL (20.0-40.0); SODIUM LEVEL 140 MEQ/L (136-145); TOTAL PROTEIN 6.8 GM/DL (6.4-8.2); TRIGLYCERIDES LEVEL 122 MG/DL (<150)
== END ==
LOC: M LAB REF 10:44
DX: E43 Unspecified severe protein-calorie malnutrition (principal); K90.49 Malabsorption due to intolerance, not elsewhere classified; K31.84 Gastroparesis

== ENCOUNTER 2018-07-30 15:39 | Emergency (ER) | payer BC, OTHER ==
[2018-07-30 19:21] LABS: BASO % 0.6 % (0.0-1.0); EOS # 0.1 10^3/uL (0.0-0.50); EOS % 2.2 % (0.0-3.0); HEMATOCRIT 33.9 % (36.0-47.0); HEMOGLOBIN 11.3 g/dl (12.0-15.5); IMMATURE GRANULOCYTE % 0.3 % (0-3.0); LYMPH # 1.2 10^3/uL (1.5-4.5); LYMPH % 19.3 % (24.0-44.0); MEAN CORPUSCULAR HEMOGLOBIN 28.6 pg (27.0-33.0); MEAN CORPUSCULAR HGB CONC 33.3 g/dl (32.0-36.5); MEAN CORPUSCULAR VOLUME 85.8 fl (80.0-96.0); MONO # 0.4 10^3/uL (0.0-0.8); MONO % 6.8 % (0.0-5.0); NEUTROPHILS # 4.5 10^3/uL (1.8-7.7); NEUTROPHILS % 70.8 % (36.0-66.0); PLATELET COUNT, AUTOMATED 354 10^3/uL (150-450); RED BLOOD COUNT 3.95 10^6/uL (4.00-5.40); RED CELL DISTRIBUTION WIDTH 14.8 % (11.5-14.5); WHITE BLOOD COUNT 6.3 10^3/uL (4.0-10.0)
[2018-07-30] MEDS: ONDANSETRON 4MG/2ML VIAL (J2405) IV (19:32)
[2018-07-30] MEDS: NS 1,000 ML IV (19:33)
[2018-07-30] MEDS: MORPHINE 4 MG/ML 1ML VIAL/SYRINGE (J2270) IV ×2 (19:33→20:47)
[2018-07-30] MEDS: GASTROGRAFIN SOLUTION 30ML (Q9963) PO ×2 (19:43→19:50)
[2018-07-30 19:44] LABS: ALBUMIN 3.9 GM/DL (3.2-5.2); ALBUMIN/GLOBULIN RATIO 1.22 (1.00-1.93); ALKALINE PHOSPHATASE 85 U/L (45-117); ALT/SGPT 22 U/L (12-78); ANION GAP 10 MEQ/L (8-16); AST/SGOT 18 U/L (7-37); BILIRUBIN,DIRECT 0.1 MG/DL (0.0-0.2); BILIRUBIN,TOTAL 0.3 MG/DL (0.2-1.0); BLOOD UREA NITROGEN 12 MG/DL (7-18); CALCIUM LEVEL 9.3 MG/DL (8.5-10.1); CARBON DIOXIDE LEVEL 25 MEQ/L (21-32); CHLORIDE LEVEL 105 MEQ/L (98-107); CREATININE FOR GFR 0.64 MG/DL (0.55-1.30); GLOMERULAR FILTRATION RATE > 60.0 (>60); GLUCOSE, FASTING 95 MG/DL (70-100); LIPASE 142 U/L (73-393); POTASSIUM SERUM 3.8 MEQ/L (3.5-5.1); SODIUM LEVEL 140 MEQ/L (136-145); TOTAL PROTEIN 7.1 GM/DL (6.4-8.2)
[2018-07-30 19:45] LABS: CONTROL LINE HCG INT CTR LINE PRESENT; HCG, SERUM QUALITATIVE NEGATIVE (NEGATIVE)
[2018-07-30] MEDS ORDERED: ISOVUE-370 76% 100ML VIAL (Q9967) As Ordered (20:59)
== END 2018-07-30 23:02 | disposition left against medical advice (07) ==
LOC: M ED 15:39
DX: K94.23 Gastrostomy malfunction (principal); G89.4 Chronic pain syndrome; F33.9 Major depressive disorder, recurrent, unspecified; F41.9 Anxiety disorder, unspecified; K90.9 Intestinal malabsorption, unspecified; Z98.84 Bariatric surgery status; Z88.1 Allergy status to other antibiotic agents; Z88.2 Allergy status to sulfonamides; Z88.5 Allergy status to narcotic agent; Z88.8 Allergy status to other drugs, medicaments and biological substances; Z91.018 Allergy to other foods
CPT/HCPCS: J2270

== ENCOUNTER → 2018-08-11 | Outpatient (REF) | payer BC, OTHER ==
[2018-08-11 12:52] LABS: BASO % 0.6 % (0.0-1.0); EOS # 0.2 10^3/uL (0.0-0.50); EOS % 4.1 % (0.0-3.0); HEMOGLOBIN 10.9 g/dl (12.0-15.5); IMMATURE GRANULOCYTE % 0.4 % (0-3.0); LYMPH # 1.2 10^3/uL (1.5-4.5); LYMPH % 25.3 % (24.0-44.0); MEAN CORPUSCULAR HEMOGLOBIN 28.3 pg (27.0-33.0); MEAN CORPUSCULAR HGB CONC 32.1 g/dl (32.0-36.5); MEAN CORPUSCULAR VOLUME 88.3 fl (80.0-96.0); MONO # 0.6 10^3/uL (0.0-0.8); MONO % 11.2 % (0.0-5.0); NEUTROPHILS # 2.9 10^3/uL (1.8-7.7); NEUTROPHILS % 58.4 % (36.0-66.0); PLATELET COUNT, AUTOMATED 370 10^3/uL (150-450); RED BLOOD COUNT 3.85 10^6/uL (4.00-5.40); RED CELL DISTRIBUTION WIDTH 13.5 % (11.5-14.5); WHITE BLOOD COUNT 4.9 10^3/uL (4.0-10.0)
[2018-08-11 13:34] LABS: ALBUMIN 3.9 GM/DL (3.2-5.2); ALBUMIN/GLOBULIN RATIO 1.11 (1.00-1.93); ALKALINE PHOSPHATASE 124 U/L (45-117); ALT/SGPT 23 U/L (12-78); ANION GAP 9 MEQ/L (8-16); AST/SGOT 18 U/L (7-37); BILIRUBIN,TOTAL 0.4 MG/DL (0.2-1.0); BLOOD UREA NITROGEN 14 MG/DL (7-18); CALCIUM LEVEL 9.2 MG/DL (8.5-10.1); CARBON DIOXIDE LEVEL 25 MEQ/L (21-32); CHLORIDE LEVEL 106 MEQ/L (98-107); CREATININE FOR GFR 1.08 MG/DL (0.55-1.30); GLOMERULAR FILTRATION RATE > 60.0 (>60); GLUCOSE, FASTING 68 MG/DL (70-100); MAGNESIUM LEVEL 2.5 MG/DL (1.8-2.4); PHOSPHORUS LEVEL 3.3 MG/DL (2.5-4.9); POTASSIUM SERUM 4.7 MEQ/L (3.5-5.1); PREALBUMIN 36.4 MG/DL (20.0-40.0); SODIUM LEVEL 140 MEQ/L (136-145); TOTAL PROTEIN 7.4 GM/DL (6.4-8.2); TRIGLYCERIDES LEVEL 235 MG/DL (<150)
== END ==
LOC: M LAB REF 12:29
DX: K90.49 Malabsorption due to intolerance, not elsewhere classified (principal); K31.84 Gastroparesis
CPT/HCPCS: 83735

== ENCOUNTER → 2018-08-13 | Outpatient (CLI) | payer BC, OTHER | LOC: M PAIN 08:30 | DX: G89.29 Other chronic pain (principal); R10.13 Epigastric pain; F32.9 Major depressive disorder, single episode, unspecified; F41.9 Anxiety disorder, unspecified; Z86.14 Personal history of Methicillin resistant Staphylococcus aureus infection; Z98.84 Bariatric surgery status; Z79.891 Long term (current) use of opiate analgesic; Z79.899 Other long term (current) drug therapy; Z88.2 Allergy status to sulfonamides; Z88.6 Allergy status to analgesic agent; Z88.1 Allergy status to other antibiotic agents | CPT/HCPCS: G0463 ==

== ENCOUNTER → 2018-08-18 | Outpatient (REF) | payer OTHER ==
[2018-08-18 10:49] LABS: BASO % 0.6 % (0.0-1.0); EOS # 0.2 10^3/uL (0.0-0.50); EOS % 3.1 % (0.0-3.0); HEMATOCRIT 33.7 % (36.0-47.0); HEMOGLOBIN 10.8 g/dl (12.0-15.5); IMMATURE GRANULOCYTE % 0.2 % (0-3.0); LYMPH # 1.1 10^3/uL (1.5-4.5); LYMPH % 23.7 % (24.0-44.0); MEAN CORPUSCULAR HEMOGLOBIN 28.3 pg (27.0-33.0); MEAN CORPUSCULAR VOLUME 88.5 fl (80.0-96.0); MONO # 0.4 10^3/uL (0.0-0.8); MONO % 7.3 % (0.0-5.0); NEUTROPHILS # 3.1 10^3/uL (1.8-7.7); NEUTROPHILS % 65.1 % (36.0-66.0); PLATELET COUNT, AUTOMATED 362 10^3/uL (150-450); RED BLOOD COUNT 3.81 10^6/uL (4.00-5.40); RED CELL DISTRIBUTION WIDTH 13.5 % (11.5-14.5); WHITE BLOOD COUNT 4.8 10^3/uL (4.0-10.0)
[2018-08-18 11:20] LABS: ALBUMIN 3.7 GM/DL (3.2-5.2); ALBUMIN/GLOBULIN RATIO 1.19 (1.00-1.93); ALKALINE PHOSPHATASE 109 U/L (45-117); ALT/SGPT 21 U/L (12-78); ANION GAP 9 MEQ/L (8-16); AST/SGOT 17 U/L (7-37); BILIRUBIN,TOTAL 0.5 MG/DL (0.2-1.0); BLOOD UREA NITROGEN 10 MG/DL (7-18); CALCIUM LEVEL 8.9 MG/DL (8.5-10.1); CARBON DIOXIDE LEVEL 26 MEQ/L (21-32); CHLORIDE LEVEL 105 MEQ/L (98-107); GLOMERULAR FILTRATION RATE > 60.0 (>60); GLUCOSE, FASTING 118 MG/DL (70-100); MAGNESIUM LEVEL 1.9 MG/DL (1.8-2.4); PHOSPHORUS LEVEL 2.6 MG/DL (2.5-4.9); POTASSIUM SERUM 3.9 MEQ/L (3.5-5.1); PREALBUMIN 33.7 MG/DL (20.0-40.0); SODIUM LEVEL 140 MEQ/L (136-145); TOTAL PROTEIN 6.8 GM/DL (6.4-8.2); TRIGLYCERIDES LEVEL 143 MG/DL (<150)
== END ==
LOC: M LAB REF 10:33
DX: E43 Unspecified severe protein-calorie malnutrition (principal); K90.49 Malabsorption due to intolerance, not elsewhere classified; K31.84 Gastroparesis

== ENCOUNTER 2018-08-23 10:48 | Emergency (ER) | payer BC, OTHER ==
[2018-08-23 11:58] LABS: KETONE, URINE AUTO RFX NEGATIVE (NEGATIVE); MUCUS, URINE RFX SMALL (NEGATIVE); NITRITE, URINE AUTO RFX NEGATIVE (NEGATIVE); RBC, URINE AUTO RFX 1 /HPF (0-3); SPECIFIC GRAVITY UR AUTO RFX 1.008 (1.002-1.035); SQUAM EPITHELIAL CELL UR AURFX 11 /HPF (0-6); WBC, URINE AUTO RFX 2 /HPF (0-3); YEAST LIKE CELL URINE AUTO RFX SMALL
[2018-08-23 11:59] LABS: LEUKOCYTE ESTERASE UR AUTO RFX TRACE (NEGATIVE)
[2018-08-23] MEDS: MORPHINE 4 MG/ML 1ML VIAL/SYRINGE (J2270) IV ×2 (12:03→13:08)
[2018-08-23] MEDS: ONDANSETRON 4MG/2ML VIAL (J2405) IV (12:03)
[2018-08-23] MEDS: NS 1,000 ML IV (12:03)
[2018-08-23 12:12] LABS: BASO % 0.7 % (0.0-1.0); EOS # 0.4 10^3/uL (0.0-0.50); EOS % 6.3 % (0.0-3.0); HEMOGLOBIN 10.9 g/dl (12.0-15.5); IMMATURE GRANULOCYTE % 0.4 % (0-3.0); LYMPH # 0.9 10^3/uL (1.5-4.5); LYMPH % 15.1 % (24.0-44.0); MEAN CORPUSCULAR HEMOGLOBIN 28.2 pg (27.0-33.0); MEAN CORPUSCULAR VOLUME 85.5 fl (80.0-96.0); MONO # 0.3 10^3/uL (0.0-0.8); MONO % 5.8 % (0.0-5.0); NEUTROPHILS # 4.1 10^3/uL (1.8-7.7); NEUTROPHILS % 71.7 % (36.0-66.0); PLATELET COUNT, AUTOMATED 251 10^3/uL (150-450); RED BLOOD COUNT 3.86 10^6/uL (4.00-5.40); RED CELL DISTRIBUTION WIDTH 14.1 % (11.5-14.5); WHITE BLOOD COUNT 5.7 10^3/uL (4.0-10.0)
[2018-08-23 12:43] LABS: ALBUMIN 3.8 GM/DL (3.2-5.2); ALBUMIN/GLOBULIN RATIO 1.27 (1.00-1.93); ALKALINE PHOSPHATASE 99 U/L (45-117); ALT/SGPT 23 U/L (12-78); AMYLASE 41 U/L (25-115); ANION GAP 10 MEQ/L (8-16); AST/SGOT 20 U/L (7-37); BILIRUBIN,TOTAL 0.5 MG/DL (0.2-1.0); BLOOD UREA NITROGEN 7 MG/DL (7-18); CALCIUM LEVEL 8.9 MG/DL (8.5-10.1); CARBON DIOXIDE LEVEL 24 MEQ/L (21-32); CHLORIDE LEVEL 108 MEQ/L (98-107); CREATININE FOR GFR 0.83 MG/DL (0.55-1.30); GLOMERULAR FILTRATION RATE > 60.0 (>60); GLUCOSE, FASTING 99 MG/DL (70-100); LIPASE 152 U/L (73-393); POTASSIUM SERUM 4.1 MEQ/L (3.5-5.1); SODIUM LEVEL 142 MEQ/L (136-145); TOTAL PROTEIN 6.8 GM/DL (6.4-8.2)
[2018-08-23] MEDS: cefTRIAXone SOD 1 GM in D5W MINI-BAG PLUS 50 ML IV (13:25)
== END 2018-08-23 14:47 | disposition home or self-care (01) ==
LOC: M ED 10:48
DX: N39.0 Urinary tract infection, site not specified (principal); B37.3 Candidiasis of vulva and vagina; J45.909 Unspecified asthma, uncomplicated; E11.9 Type 2 diabetes mellitus without complications; K21.9 Gastro-esophageal reflux disease without esophagitis; I95.9 Hypotension, unspecified; F33.9 Major depressive disorder, recurrent, unspecified; F41.9 Anxiety disorder, unspecified; R56.9 Unspecified convulsions; D68.59 Other primary thrombophilia; F11.11 Opioid abuse, in remission; Z87.442 Personal history of urinary calculi; Z98.84 Bariatric surgery status; Z88.1 Allergy status to other antibiotic agents; Z88.5 Allergy status to narcotic agent; Z88.8 Allergy status to other drugs, medicaments and biological substances; Z91.018 Allergy to other foods; F17.210 Nicotine dependence, cigarettes, uncomplicated
CPT/HCPCS: J2270

== ENCOUNTER → 2018-09-01 | Outpatient (REF) | payer OTHER ==
[2018-09-01 17:16] LABS: BASO % 0.7 % (0.0-1.0); EOS # 0.1 10^3/uL (0.0-0.50); EOS % 2.4 % (0.0-3.0); HEMATOCRIT 33.2 % (36.0-47.0); HEMOGLOBIN 10.6 g/dl (12.0-15.5); IMMATURE GRANULOCYTE % 0.2 % (0-3.0); LYMPH # 1.4 10^3/uL (1.5-4.5); LYMPH % 24.4 % (24.0-44.0); MEAN CORPUSCULAR HEMOGLOBIN 27.9 pg (27.0-33.0); MEAN CORPUSCULAR HGB CONC 31.9 g/dl (32.0-36.5); MEAN CORPUSCULAR VOLUME 87.4 fl (80.0-96.0); MONO # 0.3 10^3/uL (0.0-0.8); MONO % 5.5 % (0.0-5.0); NEUTROPHILS # 3.9 10^3/uL (1.8-7.7); NEUTROPHILS % 66.8 % (36.0-66.0); PLATELET COUNT, AUTOMATED 289 10^3/uL (150-450); RED CELL DISTRIBUTION WIDTH 13.6 % (11.5-14.5); WHITE BLOOD COUNT 5.9 10^3/uL (4.0-10.0)
[2018-09-01 17:28] LABS: ALBUMIN 3.7 GM/DL (3.2-5.2); ALBUMIN/GLOBULIN RATIO 1.12 (1.00-1.93); ALKALINE PHOSPHATASE 91 U/L (45-117); ALT/SGPT 20 U/L (12-78); ANION GAP 9 MEQ/L (8-16); AST/SGOT 14 U/L (7-37); BILIRUBIN,TOTAL 0.4 MG/DL (0.2-1.0); BLOOD UREA NITROGEN 10 MG/DL (7-18); CALCIUM LEVEL 8.8 MG/DL (8.5-10.1); CARBON DIOXIDE LEVEL 24 MEQ/L (21-32); CHLORIDE LEVEL 107 MEQ/L (98-107); CREATININE FOR GFR 0.85 MG/DL (0.55-1.30); GLOMERULAR FILTRATION RATE > 60.0 (>60); GLUCOSE, FASTING 156 MG/DL (70-100); MAGNESIUM LEVEL 2.1 MG/DL (1.8-2.4); PHOSPHORUS LEVEL 3.4 MG/DL (2.5-4.9); PREALBUMIN 35.7 MG/DL (20.0-40.0); SODIUM LEVEL 140 MEQ/L (136-145); TRIGLYCERIDES LEVEL 103 MG/DL (<150)
== END ==
LOC: M LAB REF 16:46
DX: E43 Unspecified severe protein-calorie malnutrition (principal); K90.49 Malabsorption due to intolerance, not elsewhere classified; K31.84 Gastroparesis

== ENCOUNTER → 2018-09-09 | Outpatient (REF) | payer OTHER ==
[2018-09-09 10:44] LABS: BASO % 0.6 % (0.0-1.0); EOS # 0.5 10^3/uL (0.0-0.50); EOS % 8.4 % (0.0-3.0); HEMATOCRIT 34.2 % (36.0-47.0); HEMOGLOBIN 10.9 g/dl (12.0-15.5); IMMATURE GRANULOCYTE % 0.4 % (0-3.0); LYMPH # 1.4 10^3/uL (1.5-4.5); LYMPH % 26.4 % (24.0-44.0); MEAN CORPUSCULAR HEMOGLOBIN 27.9 pg (27.0-33.0); MEAN CORPUSCULAR HGB CONC 31.9 g/dl (32.0-36.5); MEAN CORPUSCULAR VOLUME 87.5 fl (80.0-96.0); MONO # 0.7 10^3/uL (0.0-0.8); MONO % 12.5 % (0.0-5.0); NEUTROPHILS # 2.8 10^3/uL (1.8-7.7); NEUTROPHILS % 51.7 % (36.0-66.0); PLATELET COUNT, AUTOMATED 337 10^3/uL (150-450); RED BLOOD COUNT 3.91 10^6/uL (4.00-5.40); RED CELL DISTRIBUTION WIDTH 13.4 % (11.5-14.5); WHITE BLOOD COUNT 5.3 10^3/uL (4.0-10.0)
[2018-09-09 11:14] LABS: ALBUMIN 3.6 GM/DL (3.2-5.2); ALBUMIN/GLOBULIN RATIO 1.16 (1.00-1.93); ALKALINE PHOSPHATASE 120 U/L (45-117); ALT/SGPT 30 U/L (12-78); ANION GAP 7 MEQ/L (8-16); AST/SGOT 31 U/L (7-37); BILIRUBIN,TOTAL 0.5 MG/DL (0.2-1.0); BLOOD UREA NITROGEN 9 MG/DL (7-18); CALCIUM LEVEL 8.9 MG/DL (8.5-10.1); CARBON DIOXIDE LEVEL 29 MEQ/L (21-32); CHLORIDE LEVEL 101 MEQ/L (98-107); CREATININE FOR GFR 0.88 MG/DL (0.55-1.30); GLOMERULAR FILTRATION RATE > 60.0 (>60); GLUCOSE, FASTING 91 MG/DL (70-100); PHOSPHORUS LEVEL 4.4 MG/DL (2.5-4.9); POTASSIUM SERUM 4.3 MEQ/L (3.5-5.1); PREALBUMIN 30.3 MG/DL (20.0-40.0); SODIUM LEVEL 137 MEQ/L (136-145); TOTAL PROTEIN 6.7 GM/DL (6.4-8.2); TRIGLYCERIDES LEVEL 264 MG/DL (<150)
== END ==
LOC: M LAB REF 09:58
DX: E43 Unspecified severe protein-calorie malnutrition (principal); B96.5 Pseudomonas (aeruginosa) (mallei) (pseudomallei) as the cause of diseases classified elsewhere; K90.49 Malabsorption due to intolerance, not elsewhere classified

== ENCOUNTER → 2018-09-17 | Outpatient (REF) | payer OTHER ==
[2018-09-17 16:52] LABS: BASO # 0.1 10^3/uL (0.0-0.2); BASO % 0.8 % (0.0-1.0); EOS # 0.3 10^3/uL (0.0-0.50); EOS % 4.4 % (0.0-3.0); HEMATOCRIT 30.6 % (36.0-47.0); HEMOGLOBIN 9.7 g/dl (12.0-15.5); IMMATURE GRANULOCYTE % 0.2 % (0-3.0); LYMPH # 1.8 10^3/uL (1.5-4.5); LYMPH % 27.7 % (24.0-44.0); MEAN CORPUSCULAR HEMOGLOBIN 27.8 pg (27.0-33.0); MEAN CORPUSCULAR HGB CONC 31.7 g/dl (32.0-36.5); MEAN CORPUSCULAR VOLUME 87.7 fl (80.0-96.0); MONO # 0.5 10^3/uL (0.0-0.8); MONO % 7.9 % (0.0-5.0); NEUTROPHILS # 3.8 10^3/uL (1.8-7.7); PLATELET COUNT, AUTOMATED 330 10^3/uL (150-450); RED BLOOD COUNT 3.49 10^6/uL (4.00-5.40); RED CELL DISTRIBUTION WIDTH 13.3 % (11.5-14.5); WHITE BLOOD COUNT 6.4 10^3/uL (4.0-10.0)
[2018-09-17 17:15] LABS: ALBUMIN 3.5 GM/DL (3.2-5.2); ALKALINE PHOSPHATASE 87 U/L (45-117); ALT/SGPT 19 U/L (12-78); ANION GAP 5 MEQ/L (8-16); AST/SGOT 12 U/L (7-37); BILIRUBIN,TOTAL 0.6 MG/DL (0.2-1.0); BLOOD UREA NITROGEN 13 MG/DL (7-18); CALCIUM LEVEL 8.2 MG/DL (8.5-10.1); CARBON DIOXIDE LEVEL 25 MEQ/L (21-32); CHLORIDE LEVEL 105 MEQ/L (98-107); CREATININE FOR GFR 0.84 MG/DL (0.55-1.30); GLOMERULAR FILTRATION RATE > 60.0 (>60); GLUCOSE, FASTING 115 MG/DL (70-100); MAGNESIUM LEVEL 2.1 MG/DL (1.8-2.4); PHOSPHORUS LEVEL 4.9 MG/DL (2.5-4.9); POTASSIUM SERUM 3.8 MEQ/L (3.5-5.1); SODIUM LEVEL 135 MEQ/L (136-145); TRIGLYCERIDES LEVEL 125 MG/DL (<150)
== END ==
LOC: M LAB REF 16:10
DX: E43 Unspecified severe protein-calorie malnutrition (principal); K90.49 Malabsorption due to intolerance, not elsewhere classified; K31.84 Gastroparesis

== ENCOUNTER → 2018-09-23 | Outpatient (REF) | payer OTHER ==
[2018-09-23 15:05] LABS: BASO % 0.7 % (0.0-1.0); EOS # 0.3 10^3/uL (0.0-0.50); EOS % 5.4 % (0.0-3.0); HEMATOCRIT 34.8 % (36.0-47.0); HEMOGLOBIN 11.1 g/dl (12.0-15.5); IMMATURE GRANULOCYTE % 0.2 % (0-3.0); LYMPH # 1.3 10^3/uL (1.5-4.5); LYMPH % 22.8 % (24.0-44.0); MEAN CORPUSCULAR HEMOGLOBIN 27.4 pg (27.0-33.0); MEAN CORPUSCULAR HGB CONC 31.9 g/dl (32.0-36.5); MEAN CORPUSCULAR VOLUME 85.9 fl (80.0-96.0); MONO # 0.5 10^3/uL (0.0-0.8); MONO % 7.6 % (0.0-5.0); NEUTROPHILS # 3.7 10^3/uL (1.8-7.7); NEUTROPHILS % 63.3 % (36.0-66.0); PLATELET COUNT, AUTOMATED 357 10^3/uL (150-450); RED BLOOD COUNT 4.05 10^6/uL (4.00-5.40); RED CELL DISTRIBUTION WIDTH 13.3 % (11.5-14.5); WHITE BLOOD COUNT 5.9 10^3/uL (4.0-10.0)
[2018-09-23 15:17] LABS: ALBUMIN 3.7 GM/DL (3.2-5.2); ALBUMIN/GLOBULIN RATIO 1.23 (1.00-1.93); ALKALINE PHOSPHATASE 112 U/L (45-117); ALT/SGPT 31 U/L (12-78); ANION GAP 7 MEQ/L (8-16); AST/SGOT 23 U/L (7-37); BILIRUBIN,TOTAL 0.5 MG/DL (0.2-1.0); BLOOD UREA NITROGEN 8 MG/DL (7-18); CARBON DIOXIDE LEVEL 30 MEQ/L (21-32); CHLORIDE LEVEL 103 MEQ/L (98-107); CREATININE FOR GFR 0.64 MG/DL (0.55-1.30); GLOMERULAR FILTRATION RATE > 60.0 (>60); GLUCOSE, FASTING 90 MG/DL (70-100); MAGNESIUM LEVEL 2.1 MG/DL (1.8-2.4); PHOSPHORUS LEVEL 3.6 MG/DL (2.5-4.9); POTASSIUM SERUM 4.4 MEQ/L (3.5-5.1); PREALBUMIN 33.9 MG/DL (20.0-40.0); SODIUM LEVEL 140 MEQ/L (136-145); TOTAL PROTEIN 6.7 GM/DL (6.4-8.2); TRIGLYCERIDES LEVEL 233 MG/DL (<150)
== END ==
LOC: M LAB REF 14:22
DX: K90.49 Malabsorption due to intolerance, not elsewhere classified (principal); K31.84 Gastroparesis
CPT/HCPCS: 83735

== ENCOUNTER 2018-09-29 00:22 | Emergency (ER) | payer BC, OTHER ==
[2018-09-29] MEDS: SODIUM CHLORIDE 0.9% INJ 10 ML SYR IV (01:04)
[2018-09-29] MEDS: LORazepam 2 MG/ML VIAL (J2060) IV (01:04)
== END 2018-09-29 01:53 | disposition home or self-care (01) ==
LOC: M ED 00:22
DX: F41.9 Anxiety disorder, unspecified (principal)
CPT/HCPCS: J2060

== ENCOUNTER → 2018-10-06 | Outpatient (REF) | payer OTHER ==
[~2018-10-06] MED LIST changes: +CARI1TAB7 PO; -CARI350T PO; +DIFL150T PO; +EFFE37.5 PO; -EFFE37.527 PO; +FENT12DI8 TD; +FLOM0.4C39 PO; +FLUO40CA PO; -FOLI1TAB4 PO; +FOLI1TAB5 PO; +HYDR-3713 PO; +HYDR10EL PO; +HYDR4TAB PO; +LORA0.5T11 PO; +MACR100C43 PO; +METH1TAB40; +METO10TA2 PO; +MISO200T56; +MORP1SOL3 PO; +MUPI30CR TOP; +NORCOTAB PO; +ONDA2VL; +ONDA4TAB6; +ONDA4VLL IV; +OXYC-517 PO; +OXYC1SOL3 GT; +OXYC1TAB23 PO; +PERC5TAB12 PO; +PHEN25IN3 IVP; +PIPER/TAZOBA; -PROM12.55 PO; +PROM12.56 PO; +PROM25SU PR; +PROM25TA PO; +PYRI1TAB5 PO; +RANI150T; -ROCE1INJ4 INJ; +ROCE1INJ6 INJ; +TIZA2CAP PO; -TIZA2CAP3 PO; +ZOFR8TAB22 PO; -ZOFR8TAB4 PO; +[UNRECOGNIZED DRUG - CODE]; +[UNRECOGNIZED DRUG - CODE] IV
[2018-10-06 16:30] LABS: BASO % 0.5 % (0.0-1.0); EOS # 0.4 10^3/uL (0.0-0.50); HEMATOCRIT 26.3 % (36.0-47.0); HEMOGLOBIN 8.2 g/dl (12.0-15.5); LYMPH # 1.4 10^3/uL (1.5-4.5); LYMPH % 31.4 % (24.0-44.0); MEAN CORPUSCULAR HEMOGLOBIN 26.9 pg (27.0-33.0); MEAN CORPUSCULAR HGB CONC 31.2 g/dl (32.0-36.5); MEAN CORPUSCULAR VOLUME 86.2 fl (80.0-96.0); MONO # 0.5 10^3/uL (0.0-0.8); MONO % 11.1 % (0.0-5.0); NEUTROPHILS # 2.2 10^3/uL (1.8-7.7); NEUTROPHILS % 48.8 % (36.0-66.0); PLATELET COUNT, AUTOMATED 302 10^3/uL (150-450); RED BLOOD COUNT 3.05 10^6/uL (4.00-5.40); WHITE BLOOD COUNT 4.4 10^3/uL (4.0-10.0)
[2018-10-06 17:07] LABS: ALBUMIN 3.4 GM/DL (3.2-5.2); ALT/SGPT 28 U/L (12-78); BILIRUBIN,TOTAL 0.7 MG/DL (0.2-1.0); BLOOD UREA NITROGEN 6 MG/DL (7-18); CALCIUM LEVEL 8.2 MG/DL (8.5-10.1); CARBON DIOXIDE LEVEL 28 MEQ/L (21-32); CHLORIDE LEVEL 104 MEQ/L (98-107); GLOMERULAR FILTRATION RATE > 60.0 (>60); GLUCOSE, FASTING 87 MG/DL (70-100); PHOSPHORUS LEVEL 4.2 MG/DL (2.5-4.9); POTASSIUM SERUM 4.1 MEQ/L (3.5-5.1); PREALBUMIN 30.6 MG/DL (20.0-40.0); SODIUM LEVEL 141 MEQ/L (136-145); TRIGLYCERIDES LEVEL 103 MG/DL (<150)
== END ==
LOC: M LAB REF 15:27
PROVIDERS: ATTEND Internal Medicine Gastroenterology
DX: E43 Unspecified severe protein-calorie malnutrition (principal); K90.49 Malabsorption due to intolerance, not elsewhere classified; K31.84 Gastroparesis

== ENCOUNTER 2018-10-07 15:53 | Inpatient (IN) | payer BC, OTHER ==
[2018-10-07 17:12] LABS: BASO % 0.2 % (0.0-1.0); EOS # 0.3 10^3/uL (0.0-0.50); EOS % 3.5 % (0.0-3.0); HEMATOCRIT 28.1 % (36.0-47.0); HEMOGLOBIN 8.9 g/dl (12.0-15.5); IMMATURE GRANULOCYTE % 0.3 % (0-3.0); LYMPH # 0.5 10^3/uL (1.5-4.5); LYMPH % 5.7 % (24.0-44.0); MEAN CORPUSCULAR HEMOGLOBIN 27.1 pg (27.0-33.0); MEAN CORPUSCULAR HGB CONC 31.7 g/dl (32.0-36.5); MEAN CORPUSCULAR VOLUME 85.4 fl (80.0-96.0); MONO % 10.2 % (0.0-5.0); NEUTROPHILS # 7.5 10^3/uL (1.8-7.7); NEUTROPHILS % 80.1 % (36.0-66.0); PLATELET COUNT, AUTOMATED 322 10^3/uL (150-450); RED BLOOD COUNT 3.29 10^6/uL (4.00-5.40); RED CELL DISTRIBUTION WIDTH 13.8 % (11.5-14.5); WHITE BLOOD COUNT 9.4 10^3/uL (4.0-10.0)
[2018-10-07 17:16] LABS: INR 0.94; PROTHROMBIN TIME 12.6 SECONDS (12.1-14.4)
[2018-10-07 17:17] LABS: PARTIAL THROMBOPLASTIN TIME 27.4 SECONDS (25.4-37.6)
[2018-10-07] MEDS: NS 1,000 ML IV (17:17)
[2018-10-07] MEDS: PANTOPRAZOLE 40MG INJ (PROTONIX) (C9113) IV (17:18)
[2018-10-07 17:27] LABS: ALBUMIN 3.4 GM/DL (3.2-5.2); ALBUMIN/GLOBULIN RATIO 1.26 (1.00-1.93); ALKALINE PHOSPHATASE 108 U/L (45-117); ALT/SGPT 58 U/L (12-78); ANION GAP 7 MEQ/L (8-16); AST/SGOT 81 U/L (7-37); BILIRUBIN,DIRECT 0.2 MG/DL (0.0-0.2); BILIRUBIN,TOTAL 0.9 MG/DL (0.2-1.0); BLOOD UREA NITROGEN 11 MG/DL (7-18); CALCIUM LEVEL 8.2 MG/DL (8.5-10.1); CARBON DIOXIDE LEVEL 28 MEQ/L (21-32); CHLORIDE LEVEL 102 MEQ/L (98-107); CREATININE FOR GFR 0.74 MG/DL (0.55-1.30); GLOMERULAR FILTRATION RATE > 60.0 (>60); GLUCOSE, FASTING 130 MG/DL (70-100); LIPASE 103 U/L (73-393); POTASSIUM SERUM 4.3 MEQ/L (3.5-5.1); SODIUM LEVEL 137 MEQ/L (136-145); TOTAL PROTEIN 6.1 GM/DL (6.4-8.2)
[2018-10-07] MEDS ORDERED: diphenhydrAMINE INJ 50MG/ML VIAL (J1200) As Ordered (18:20)
[2018-10-07] MEDS: diphenhydrAMINE INJ 50MG/ML VIAL (J1200) IV (18:25)
[2018-10-07] MEDS ORDERED: PROMETHAZINE 25 MG SUPP PR (19:45)
[2018-10-07 19:49] LABS: IMMEDIATE SPIN CROSSMATCH 1 2
[2018-10-07] MEDS: FLUoxetine 20 MG CAP PO (21:51)
[2018-10-07] MEDS: ONDANSETRON 4MG/2ML VIAL (J2405) IV (21:51)
[2018-10-07] MEDS: D5W/0.9% SODIUM CHLORIDE 1,000 ML IV (22:05)
[2018-10-07] MEDS: MORPHINE 4 MG/ML 1ML VIAL/SYRINGE (J2270) IV (22:05)
[2018-10-07] MEDS: zolPIDEM CR 6.25MG TABLET (AMBIEN CR) PO (22:30)
[2018-10-08 00:46] LABS: HEMATOCRIT 32.1 % (36.0-47.0); HEMOGLOBIN 10.5 g/dl (12.0-15.5)
[2018-10-08] MEDS: ONDANSETRON 4MG/2ML VIAL (J2405) IV ×7 (04:18→23:52)
[2018-10-08] MEDS: PANTOPRAZOLE 40MG INJ (PROTONIX) (C9113) IV ×2 (04:19→16:33)
[2018-10-08 06:50] LABS: HEMATOCRIT 30.8 % (36.0-47.0)
[2018-10-08 07:34] LABS: ALBUMIN/GLOBULIN RATIO 1.11 (1.00-1.93); ALKALINE PHOSPHATASE 119 U/L (45-117); ALT/SGPT 96 U/L (12-78); ANION GAP 6 MEQ/L (8-16); AST/SGOT 100 U/L (7-37); BILIRUBIN,TOTAL 2.5 MG/DL (0.2-1.0); BLOOD UREA NITROGEN 7 MG/DL (7-18); CALCIUM LEVEL 8.2 MG/DL (8.5-10.1); CARBON DIOXIDE LEVEL 29 MEQ/L (21-32); CHLORIDE LEVEL 106 MEQ/L (98-107); GLOMERULAR FILTRATION RATE > 60.0 (>60); GLUCOSE, FASTING 98 MG/DL (70-100); POTASSIUM SERUM 3.7 MEQ/L (3.5-5.1); SODIUM LEVEL 141 MEQ/L (136-145); TOTAL PROTEIN 5.7 GM/DL (6.4-8.2)
[2018-10-08] MEDS: FLUoxetine 20 MG CAP PO (08:16)
[2018-10-08] MEDS: HYDROmorphone (DILAUDID) 4 MG TAB PO ×2 (08:16→18:50)
[2018-10-08] MEDS: MORPHINE 4 MG/ML 1ML VIAL/SYRINGE (J2270) IV ×3 (10:03→22:35)
[2018-10-08] MEDS: D5W/0.9% SODIUM CHLORIDE 1,000 ML IV ×2 (10:04→20:26)
[2018-10-08 11:56] LABS: HEMATOCRIT 30.3 % (36.0-47.0); HEMOGLOBIN 9.8 g/dl (12.0-15.5)
[2018-10-08] MEDS: diphenhydrAMINE INJ 50MG/ML VIAL (J1200) IV (16:11)
[2018-10-08] MEDS: zolPIDEM CR 6.25MG TABLET (AMBIEN CR) PO (20:25)
[2018-10-09] MEDS: diphenhydrAMINE INJ 50MG/ML VIAL (J1200) IV (00:41)
[2018-10-09] MEDS: HYDROmorphone (DILAUDID) 4 MG TAB PO (03:12)
[2018-10-09] MEDS: ONDANSETRON 4MG/2ML VIAL (J2405) IV ×5 (03:12→20:47)
[2018-10-09] MEDS: PANTOPRAZOLE 40MG INJ (PROTONIX) (C9113) IV ×2 (04:09→17:45)
[2018-10-09] MEDS: MORPHINE 4 MG/ML 1ML VIAL/SYRINGE (J2270) IV ×4 (04:10→20:48)
[2018-10-09] MEDS: LORazepam 0.5 MG TAB PO (04:10)
[2018-10-09 06:33] LABS: HEMATOCRIT 26.7 % (36.0-47.0); HEMOGLOBIN 8.3 g/dl (12.0-15.5); MEAN CORPUSCULAR HEMOGLOBIN 27.2 pg (27.0-33.0); MEAN CORPUSCULAR HGB CONC 31.1 g/dl (32.0-36.5); MEAN CORPUSCULAR VOLUME 87.5 fl (80.0-96.0); PLATELET COUNT, AUTOMATED 236 10^3/uL (150-450); RED BLOOD COUNT 3.05 10^6/uL (4.00-5.40); RED CELL DISTRIBUTION WIDTH 14.3 % (11.5-14.5); WHITE BLOOD COUNT 3.2 10^3/uL (4.0-10.0)
[2018-10-09 07:08] LABS: ANION GAP 7 MEQ/L (8-16); BLOOD UREA NITROGEN 3 MG/DL (7-18); CALCIUM LEVEL 7.9 MG/DL (8.5-10.1); CARBON DIOXIDE LEVEL 28 MEQ/L (21-32); CHLORIDE LEVEL 108 MEQ/L (98-107); CREATININE FOR GFR 0.62 MG/DL (0.55-1.30); GLOMERULAR FILTRATION RATE > 60.0 (>60); GLUCOSE, FASTING 100 MG/DL (70-100); MAGNESIUM LEVEL 1.9 MG/DL (1.8-2.4); POTASSIUM SERUM 3.7 MEQ/L (3.5-5.1); SODIUM LEVEL 143 MEQ/L (136-145)
[2018-10-09 07:58] LABS: ALBUMIN 2.7 GM/DL (3.2-5.2); ALBUMIN/GLOBULIN RATIO 1.17 (1.00-1.93); ALKALINE PHOSPHATASE 92 U/L (45-117); ALT/SGPT 66 U/L (12-78); AST/SGOT 54 U/L (7-37); BILIRUBIN,DIRECT 0.3 MG/DL (0.0-0.2)
[2018-10-09] MEDS: BISACODYL 5 MG TAB PO (08:09)
[2018-10-09] MEDS: FLUoxetine 20 MG CAP PO (08:09)
[2018-10-09] MEDS: GOLYTELY SOLN 4000 ML BTL PO (08:10)
[2018-10-09] MEDS: diphenhydrAMINE 25 MG CAP PO (10:30)
[2018-10-09 11:43] LABS: IMMEDIATE SPIN CROSSMATCH 1 1
[2018-10-09] MEDS: D5W/0.9% SODIUM CHLORIDE 1,000 ML IV ×2 (14:15→21:08)
[2018-10-09] MEDS ORDERED: LIDOCAINE 2% INJ 100 MG/5 ML SYRINGE As Ordered (14:32)
[2018-10-09] MEDS ORDERED: PROPOFOL 200 MG/20 ML VIAL As Ordered (14:32)
[2018-10-09] MEDS ORDERED: fentaNYL 100 MCG/2 ML INJECTION (J3010) As Ordered (14:32)
[2018-10-09] MEDS ORDERED: ePHEDrine SULFATE 25 MG/5 ML(5MG/ML) SYRINGE As Ordered (15:07)
[2018-10-09] MEDS ORDERED: PHENYLephrine HCL 500 MCG/5 ML (100MCG/ML) SYRINGE (J2370) As Ordered (15:11)
[2018-10-09] MEDS: zolPIDEM CR 6.25MG TABLET (AMBIEN CR) PO (20:48)
[2018-10-09 21:08] LABS: HEMOGLOBIN 9.3 g/dl (12.0-15.5)
[2018-10-10] MEDS: ONDANSETRON 4MG/2ML VIAL (J2405) IV ×4 (01:13→12:34)
[2018-10-10] MEDS: MORPHINE 4 MG/ML 1ML VIAL/SYRINGE (J2270) IV (01:14)
[2018-10-10] MEDS: PANTOPRAZOLE 40MG INJ (PROTONIX) (C9113) IV (04:27)
[2018-10-10 04:52] LABS: HEMOGLOBIN 9.2 g/dl (12.0-15.5); MEAN CORPUSCULAR HEMOGLOBIN 27.5 pg (27.0-33.0); MEAN CORPUSCULAR HGB CONC 31.7 g/dl (32.0-36.5); MEAN CORPUSCULAR VOLUME 86.8 fl (80.0-96.0); PLATELET COUNT, AUTOMATED 225 10^3/uL (150-450); RED BLOOD COUNT 3.34 10^6/uL (4.00-5.40); RED CELL DISTRIBUTION WIDTH 14.3 % (11.5-14.5); WHITE BLOOD COUNT 3.4 10^3/uL (4.0-10.0)
[2018-10-10 05:12] LABS: ALBUMIN 2.6 GM/DL (3.2-5.2); ALBUMIN/GLOBULIN RATIO 1.13 (1.00-1.93); ALKALINE PHOSPHATASE 86 U/L (45-117); ALT/SGPT 52 U/L (12-78); ANION GAP 8 MEQ/L (8-16); AST/SGOT 30 U/L (7-37); BILIRUBIN,DIRECT 0.2 MG/DL (0.0-0.2); BILIRUBIN,TOTAL 1.1 MG/DL (0.2-1.0); BLOOD UREA NITROGEN 2 MG/DL (7-18); CALCIUM LEVEL 7.8 MG/DL (8.5-10.1); CARBON DIOXIDE LEVEL 28 MEQ/L (21-32); CHLORIDE LEVEL 110 MEQ/L (98-107); CREATININE FOR GFR 0.58 MG/DL (0.55-1.30); GLOMERULAR FILTRATION RATE > 60.0 (>60); GLUCOSE, FASTING 105 MG/DL (70-100); MAGNESIUM LEVEL 1.8 MG/DL (1.8-2.4); POTASSIUM SERUM 3.8 MEQ/L (3.5-5.1); SODIUM LEVEL 146 MEQ/L (136-145); TOTAL PROTEIN 4.9 GM/DL (6.4-8.2)
[2018-10-10] MEDS: FLUoxetine 20 MG CAP PO (09:53)
[2018-10-10] MEDS: MORPHINE SULFATE ORAL SOLN 10 MG/5 ML UD PO (09:53)
[2018-10-10] MEDS: hydrOXYzine 10MG/5ML SYRUP PO (09:53)
== END 2018-10-10 14:09 | disposition home or self-care (01) | DRG 253 ==
LOC: M PCU 10-08 12:10 → M ED 15:53 → M ED INP 19:42
PROC: 0DJ08ZZ Inspection of Upper Intestinal Tract, Via Natural or Artificial Opening Endoscopic (ICD-10-PCS; 2018-10-09 07:30)
PROC: 0DJD8ZZ Inspection of Lower Intestinal Tract, Via Natural or Artificial Opening Endoscopic (ICD-10-PCS; 2018-10-09 07:30)
PROC: 30233N1 Transfusion of Nonautologous Red Blood Cells into Peripheral Vein, Percutaneous Approach (ICD-10-PCS; principal; 2018-10-09 14:51)
DX: K92.2 Gastrointestinal hemorrhage, unspecified (principal); D68.59 Other primary thrombophilia; K31.84 Gastroparesis; K56.7 Ileus, unspecified; E66.01 Morbid (severe) obesity due to excess calories; D50.0 Iron deficiency anemia secondary to blood loss (chronic); Z79.899 Other long term (current) drug therapy; Z88.8 Allergy status to other drugs, medicaments and biological substances; Z88.6 Allergy status to analgesic agent; Z91.038 Other insect allergy status; Z88.2 Allergy status to sulfonamides; F32.9 Major depressive disorder, single episode, unspecified; F41.9 Anxiety disorder, unspecified; K64.8 Other hemorrhoids; K64.4 Residual hemorrhoidal skin tags; G47.00 Insomnia, unspecified

== ENCOUNTER 2018-10-16 15:14 | Emergency (ER) | payer BC, OTHER ==
[~2018-10-16] VITALS: Ht 170.2 cm; Wt 65.9 kg
[2018-10-16] MEDS ORDERED: NS 1,000 ML IV ONE (16:30)
[2018-10-16 16:42] LABS: BASO % 0.6 % (0.0-1.0); EOS # 0.1 10^3/uL (0.0-0.50); EOS % 1.2 % (0.0-3.0); HEMATOCRIT 38.3 % (36.0-47.0); HEMOGLOBIN 12.5 g/dl (12.0-15.5); LYMPH # 1.1 10^3/uL (1.5-4.5); LYMPH % 16.4 % (24.0-44.0); MEAN CORPUSCULAR HEMOGLOBIN 27.1 pg (27.0-33.0); MEAN CORPUSCULAR HGB CONC 32.6 g/dl (32.0-36.5); MEAN CORPUSCULAR VOLUME 83.1 fl (80.0-96.0); MONO # 0.6 10^3/uL (0.0-0.8); MONO % 9.1 % (0.0-5.0); NEUTROPHILS # 4.7 10^3/uL (1.8-7.7); NEUTROPHILS % 72.5 % (36.0-66.0); PLATELET COUNT, AUTOMATED 374 10^3/uL (150-450); RED BLOOD COUNT 4.61 10^6/uL (4.00-5.40); WHITE BLOOD COUNT 6.5 10^3/uL (4.0-10.0)
[2018-10-16 17:04] LABS: ALT/SGPT 24 U/L (12-78); BILIRUBIN,DIRECT 0.2 MG/DL (0.0-0.2); BILIRUBIN,TOTAL 1.2 MG/DL (0.2-1.0); BLOOD UREA NITROGEN 12 MG/DL (7-18); CALCIUM LEVEL 9.1 MG/DL (8.5-10.1); CARBON DIOXIDE LEVEL 23 MEQ/L (21-32); CHLORIDE LEVEL 104 MEQ/L (98-107); CREATININE FOR GFR 0.75 MG/DL (0.55-1.30); GLOMERULAR FILTRATION RATE > 60.0 (>60); GLUCOSE, FASTING 136 MG/DL (70-100); LIPASE 330 U/L (73-393); POTASSIUM SERUM 4.1 MEQ/L (3.5-5.1); SODIUM LEVEL 138 MEQ/L (136-145)
[2018-10-16 17:05] LABS: HCG, SERUM QUALITATIVE NEGATIVE (NEGATIVE)
[2018-10-16] MEDS ORDERED: MORPHINE 2 MG/ML 1ML SYRINGE (J2270) IV ONE (17:15)
[2018-10-16] MEDS ORDERED: HYDROMORPHONE HCL 0.5 MG/ 0.5 ML SYRINGE (J1170 PER 1) IV ONE ×2 (17:45→18:45)
--- NOTE | 2018-10-16 17:59 | REP ---
Chest x-ray: Portable AP view. History: Tachycardia. Comparison study: October 07, 2018. Findings: A tunnel catheter is again noted in place with its tip in the expected location of the superior vena cava. The lungs are well inflated and clear. Pleural angles are sharp. Heart size is normal. No bony abnormality is seen. There are clips in the left upper abdomen. Impression: No active disease. Tunnel catheter noted in place. Electronically Signed by Adrian Valdez MD 10/16/2018 06:26 P
[2018-10-16 19:00] VITALS: BP 101/62
--- NOTE | 2018-10-17 11:19 | ECGEPIP ---
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
== END 2018-10-16 19:03 | disposition home or self-care (01) ==
LOC: M ED 15:14
DX: R10.9 Unspecified abdominal pain (principal); G89.29 Other chronic pain; R00.0 Tachycardia, unspecified; F32.9 Major depressive disorder, single episode, unspecified; Z98.84 Bariatric surgery status; Z88.8 Allergy status to other drugs, medicaments and biological substances; Z88.5 Allergy status to narcotic agent; Z88.1 Allergy status to other antibiotic agents; Z88.2 Allergy status to sulfonamides; Z91.018 Allergy to other foods; Z79.899 Other long term (current) drug therapy
CPT/HCPCS: 36415; 71045; 80048; 80076; 83605; 83690; 84703; 85025; 86850; 86900; 86901; 87040; 93005; 96374; 96375; 99284; J1170; J2270

== ENCOUNTER → 2018-10-28 | Outpatient (REF) | payer OTHER ==
[~2018-10-28] MED LIST changes: +FOLI1TAB11 PO; -FOLI1TAB5 PO; +MORP10SO PO; +ONDA4VLL INJ; -ONDA4VLL IV; +PANT40TA3 PO; -PROM25TA PO; +PROM25TA12 PO; +SUCR1SUS PO
[2018-10-28 18:22] LABS: BASO % 0.5 % (0.0-1.0); EOS # 0.3 10^3/uL (0.0-0.50); EOS % 7.7 % (0.0-3.0); HEMATOCRIT 25.5 % (36.0-47.0); HEMOGLOBIN 8.1 g/dl (12.0-15.5); LYMPH # 1.1 10^3/uL (1.5-4.5); LYMPH % 25.8 % (24.0-44.0); MEAN CORPUSCULAR HEMOGLOBIN 27.4 pg (27.0-33.0); MEAN CORPUSCULAR HGB CONC 31.8 g/dl (32.0-36.5); MEAN CORPUSCULAR VOLUME 86.1 fl (80.0-96.0); MONO # 0.4 10^3/uL (0.0-0.8); MONO % 8.9 % (0.0-5.0); NEUTROPHILS # 2.4 10^3/uL (1.8-7.7); NEUTROPHILS % 56.9 % (36.0-66.0); PLATELET COUNT, AUTOMATED 304 10^3/uL (150-450); RED BLOOD COUNT 2.96 10^6/uL (4.00-5.40); WHITE BLOOD COUNT 4.2 10^3/uL (4.0-10.0)
[2018-10-28 18:41] LABS: ALBUMIN 3.2 GM/DL (3.2-5.2); ALT/SGPT 67 U/L (12-78); BILIRUBIN,TOTAL 0.4 MG/DL (0.2-1.0); BLOOD UREA NITROGEN 5 MG/DL (7-18); CALCIUM LEVEL 8.1 MG/DL (8.5-10.1); CARBON DIOXIDE LEVEL 27 MEQ/L (21-32); CHLORIDE LEVEL 106 MEQ/L (98-107); CREATININE FOR GFR 0.61 MG/DL (0.55-1.30); FERRITIN 60 NG/ML (8-252); GLOMERULAR FILTRATION RATE > 60.0 (>60); GLUCOSE, FASTING 105 MG/DL (70-100); MAGNESIUM LEVEL 1.8 MG/DL (1.8-2.4); PHOSPHORUS LEVEL 2.9 MG/DL (2.5-4.9); POTASSIUM SERUM 3.7 MEQ/L (3.5-5.1); SODIUM LEVEL 139 MEQ/L (136-145); TOTAL PROTEIN 5.4 GM/DL (6.4-8.2); TRIGLYCERIDES LEVEL 199 MG/DL (<150)
== END ==
LOC: M LAB REF 15:55
PROVIDERS: ATTEND Internal Medicine Gastroenterology
DX: E43 Unspecified severe protein-calorie malnutrition (principal); K90.49 Malabsorption due to intolerance, not elsewhere classified; K31.84 Gastroparesis

== ENCOUNTER 2018-10-30 08:46 | Observation (INO) | payer BC, OTHER ==
[~2018-10-30] VITALS: Ht 167.6 cm; Wt 69.7 kg
[~2018-10-30 08:46] MED LIST changes: -MORP10SO PO; -PANT40TA3 PO; -SUCR1SUS PO
[2018-10-30] MEDS ORDERED: SUCR1SUS PO (08:53)
--- NOTE | 2018-10-30 09:48 | REP ---
Chest x-ray: Two views. History: Chest pain. Comparison study: October 16, 2018. Findings: A right-sided central venous catheter is again seen in place with its tip in the expected location of the superior vena cava. The lungs are well inflated and clear. Heart size is normal. Pleural angles are sharp. No bony abnormality is seen. EKG electrodes are noted anteriorly. Impression: Right-sided central venous catheter again noted. No active disease. Electronically Signed by Adrian Valdez MD 10/30/2018 09:39 A
[2018-10-30] MEDS ORDERED: NS 500 ML IV ONE ×2 (10:00→11:15)
[2018-10-30 10:24] LABS: BASO % 0.7 % (0.0-1.0); EOS # 0.1 10^3/uL (0.0-0.50); EOS % 1.2 % (0.0-3.0); HEMATOCRIT 26.8 % (36.0-47.0); HEMOGLOBIN 8.6 g/dl (12.0-15.5); LYMPH # 0.7 10^3/uL (1.5-4.5); LYMPH % 16.7 % (24.0-44.0); MEAN CORPUSCULAR HGB CONC 32.1 g/dl (32.0-36.5); MEAN CORPUSCULAR VOLUME 84.3 fl (80.0-96.0); MONO # 0.2 10^3/uL (0.0-0.8); NEUTROPHILS % 75.2 % (36.0-66.0); PLATELET COUNT, AUTOMATED 357 10^3/uL (150-450); RED BLOOD COUNT 3.18 10^6/uL (4.00-5.40)
[2018-10-30 10:34] LABS: INR 0.96; PROTHROMBIN TIME 12.8 SECONDS (12.1-14.4)
[2018-10-30 10:35] LABS: PARTIAL THROMBOPLASTIN TIME 27.7 SECONDS (25.4-37.6)
[2018-10-30 10:57] LABS: ALBUMIN 3.4 GM/DL (3.2-5.2); ALT/SGPT 50 U/L (12-78); BILIRUBIN,DIRECT 0.1 MG/DL (0.0-0.2); BILIRUBIN,TOTAL 0.5 MG/DL (0.2-1.0); BLOOD UREA NITROGEN 6 MG/DL (7-18); CALCIUM LEVEL 8.8 MG/DL (8.5-10.1); CARBON DIOXIDE LEVEL 25 MEQ/L (21-32); CHLORIDE LEVEL 108 MEQ/L (98-107); CK-MB VALUE MASS < 1.0 NG/ML (<3.6); CPK CREATINE PHOSPHOKINASE 38 U/L (26-192); CREATININE FOR GFR 0.58 MG/DL (0.55-1.30); FREE T4 0.78 NG/DL (0.76-1.46); GLOMERULAR FILTRATION RATE > 60.0 (>60); GLUCOSE, FASTING 135 MG/DL (70-100); MB/CK RELATIVE INDEX 2.63 (< OR =4); POTASSIUM SERUM 3.6 MEQ/L (3.5-5.1); SODIUM LEVEL 141 MEQ/L (136-145); THYROID STIMULATING HORMONE 0.082 uIU/ML (0.358-3.740); TOTAL PROTEIN 6.2 GM/DL (6.4-8.2); TROPONIN I < 0.02 NG/ML (< 0.10)
[2018-10-30 10:59] LABS: HCG, SERUM QUALITATIVE NEGATIVE (NEGATIVE)
[2018-10-30] MEDS ORDERED: MORPHINE 15 MG SA TAB PO ONE (12:30)
[2018-10-30] MEDS ORDERED: NS 1,000 ML IV ONE ×2 (12:30→14:15)
[2018-10-30] MEDS ORDERED: ONDANSETRON 4MG/2ML VIAL (J2405) IV ONE ×2 (12:30→19:15)
[2018-10-30] MEDS ORDERED: MORPHINE SULFATE ORAL SOLN 10 MG/5 ML UD PO ONE (12:45)
[2018-10-30] MEDS ORDERED: MORP10SO PO (14:53)
[2018-10-30] MEDS ORDERED: PANT40TA3 PO (14:53)
[2018-10-30] MEDS ORDERED: ZOLP10TA2 PO (14:53)
[2018-10-30] MEDS ORDERED: HYDR10EL PO (14:53)
[2018-10-30] MEDS ORDERED: NS 1,000 ML IV SCH (15:53)
[2018-10-30] MEDS ORDERED: MORPHINE 4 MG/ML 1ML VIAL/SYRINGE (J2270) IV PRN (16:00)
[2018-10-30] MEDS ORDERED: MORPHINE SULFATE ORAL SOLN 10 MG/5 ML UD PO PRN (16:15)
[2018-10-30] MEDS ORDERED: hydrOXYzine 10 MG TAB PO PRN (16:15)
[2018-10-30] MEDS ORDERED: PROMETHAZINE 25 MG SUPP PR PRN (16:15)
--- NOTE | 2018-10-30 17:20 | HPEPDOC ---
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 She said her HR was 181bpm and she felt extremely with minimal ambulation to the bathroom, so she decided to come in because she thought she might need blood transfusion. Patient denied fever , chills, chest pain. Said she has occasional vomiting (sometimes bloody), bloody stools almost once per week. She said she had colonoscopy September 2018, but doesn't remember the result. She said she had EGD done one week ago. 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 Resides in: [home] Children: [4] Employment: [none] Tobacco use:[n] ETOH: [n] Illicit drug use: [n] Tattoos done unprofessionally: [y]. IV drug use: [n] FAMILY HISTORY: Mother: [crohns] Siblings: [crohns] ALLERGIES: Please see below. HOME MEDICATIONS: Please see below. ROS - all 14 point review of system is negative except for whats listed in HPI Physical exam Gen: NAD, thin and looks older than stated age HEENT: normocephalic, atraumatic, no discharge from ears or nose, no oropharyngeal erythema or exudate, neck is supple, no lymphadenopathy, trachea midline CVS: RRR, normal S1n S2, no murmur, rubs, or gallops, no edema, no jvd , right subclavian central line Resp: LCTAB, no rhonchi, wheezes or crackles Abd : soft nontender, normal bowel sounds, no rebound tenderness or guarding , post surgical scars , per ED attending - rectal exam negative for gross blood and occult negative. MSK: no swelling, full range of motion, strength 5/5 Neuro: AOAx3, no confusion, no focal deficit Psych: normal mood and affect, good judgment EKG - NSR- at 95bpm LABORATORY DATA: See below. 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 GI consult will resume TNP if available here Monitor and replace electrolytes dvt ppx - scd for since pt said she constantly has GI bleed gi ppx - protonix DNI/DNR , from home , no svc Vital Signs Vital Signs Date Time Temp Pulse Resp B/P (MAP) Pulse Ox O2 Delivery O2 Flow Rate FiO2 10/30/18 15:03 108 116/66 (83) 10/30/18 14:42 19 100 Room Air 10/30/18 09:10 98.6 Laboratory Data Labs 24H Laboratory Tests 2 10/30/18 10:10: Immature Granulocyte % (Auto) 0.2, White Blood Count 4.0, Red Blood Count 3.18L, Hemoglobin 8.6L, Hematocrit 26.8L, Mean Corpuscular Volume 84.3, Mean Corpu scular Hemoglobin 27.0, Mean Corpuscular Hemoglobin Concent 32.1, Red Cell Distribution Width 14.6H, Platelet Count 357, Neutrophils (%) (Auto) 75.2H, Lymphocytes (%) (Auto) 16.7L, Monocytes (%) (Auto) 6.0H, Eosinophils (%) (Auto) 1.2, Basophils (%) (Auto) 0.7, Neutrophils # (Auto) 3.0, Lymphocytes # (Auto) 0.7L, Monocytes # (Auto) 0.2, Eosinophils # (Auto) 0.1, Basophils # (Auto) 0.0, Nucleated Red Blood Cells % (auto) 0.0, Prothrombin Time 12.8, Prothromb Time International Ratio 0.96, Activated Partial Thromboplast Time 27.7, Anion Gap 8, Glomerular Filtration Rate > 60.0, Calcium Level 8.8, Aspartate Amino Transf (AST/SGOT) 30, Alanine Aminotransferase (ALT/SGPT) 50, Alkaline Phosphatase 174H, Total Bilirubin 0.5, Direct Bilirubin 0.1, Total Creatine Kinase 38, Creatine Kinase MB < 1.0, Creatine Kinase MB Relative Index 2.63, Troponin I < 0.02, Total Protein 6.2L, Albumin 3.4, Albumin/Globulin Ratio 1.21, Thyroid Stimulating Hormone (TSH) 0.082L, Free Thyroxine 0.78, Human Chorionic Gonadotropin, Qual NEGATIVE CBC/BMP Laboratory Tests 10/30/18 10:10 Red Blood Count 3.18 L, Mean Corpuscular Volume 84.3, Mean Corpuscular Hemoglobin 27.0, Mean Corpuscular Hemoglobin Concent 32.1, Red Cell Distribution Width 14.6 H, Neutrophils (%) (Auto) 75.2 H, Lymphocytes (%) (Auto) 16.7 L, Monocytes (%) (Auto) 6.0 H, Eosinophils (%) (Auto) 1.2, Basophils (%) (Auto) 0.7 , Neutrophils # (Auto) 3.0, Lymphocytes # (Auto) 0.7 L, Monocytes # (Auto) 0.2, Eosinophils # (Auto) 0.1, Basophils # (Auto) 0.0 Home Medications Scheduled Fluoxetine Hcl (Fluoxetine HCl) 40 Mg Cap, 40 MG PO DAILY Ondansetron (Ondansetron HCl) 4 Mg/2 Ml Inj, 8 MG INJ Q8H Pantoprazole Sodium (Pantoprazole Sodium) 40 Mg Tab, 40 MG PO DAILY Sucralfate (Sucralfate) 1 Gm/10 Ml Rani, 10 ML PO Q6H Zolpidem Tartrate (Zolpidem Tartrate) 10 Mg Tab, 10 MG PO QHS Scheduled PRN Hydroxyzine HCl (Hydroxyzine HCl) 10 Mg/5 Ml Syp, 5 ML PO Q12H PRN for ITCHING Morphine Sulfate (Morphine Sulfate) 10 Mg/5 Ml Martha, 5 ML PO Q4H PRN for PAIN Promethazine HCl (Phenadoz) 25 Mg Sup, 25 MG ND for NAUSEA OR VOMITING Allergies Coded Allergies: Butorphanol (Verified Allergy, Severe, HIVES/RESP. PROBLEMS (PERCOCET AND TYL#3 OK), 08/23/18) HAD HAD MORPHINE AND DILAUDID IN THE PAST Levofloxacin (Verified Allergy, Severe, hives/throat swelling, 08/23/18) Sulfa Drugs (Verified Allergy, Severe, SWELLING,HIVES,RESP. PROBLEMS, 08/23/18) Tomato (Verified Allergy, Severe, HIVES/RESP. PROBLEMS, 08/23/18) Tramadol (Verified Allergy, Severe, SOB, 08/23/18) HAD HAD MORPHINE AND DILAUDID IN THE PAST NSAIDs (Verified Adverse Reaction, Mild, Gastric Bypass, 08/23/18) Scopolamine (Verified Adverse Reaction, Mild, vision loss, 10/07/18) VELIA THOMASON MD Oct 30, 2018 17:20
[2018-10-30] MEDS: ONDANSETRON 4MG/2ML VIAL (J2405) IV PRN ×2 (17:44→23:31)
[2018-10-30 18:02] LABS: HEMATOCRIT 20.9 % (36.0-47.0)
[2018-10-30 18:06] LABS: HEMOGLOBIN 6.7 g/dl (12.0-15.5)
[2018-10-30] MEDS: SUCRALFATE SUSP 1GM/10ML UD PO SCH (18:36)
[2018-10-30] MEDS ORDERED: PROMETHAZINE INJ 25 MG/ML VIAL (J2550) IV PRN (19:45)
[2018-10-30] MEDS: MORPHINE 4 MG/ML 1ML VIAL/SYRINGE (J2270) IV PRN (19:45)
[2018-10-30] MEDS ORDERED: MORPHINE 4 MG/ML 1ML VIAL/SYRINGE (J2270) IV ONE (23:30)
[2018-10-30 23:45] VITALS: BP 120/67
[2018-10-31] MEDS: SUCRALFATE SUSP 1GM/10ML UD PO SCH ×4 (00:34→17:46)
[2018-10-31] MEDS: zolPIDEM TARTRATE 10MG TAB PO SCH ×2 (00:34→20:48)
[2018-10-31] MEDS ORDERED: SODIUM CHLORIDE 0.9% INJ 10 ML SYR IV PRN (01:45)
[2018-10-31 06:00] VITALS: BP 107/66
[2018-10-31] MEDS: MORPHINE 4 MG/ML 1ML VIAL/SYRINGE (J2270) IV PRN ×3 (06:15→17:45)
[2018-10-31] MEDS: ONDANSETRON 4MG/2ML VIAL (J2405) IV PRN ×2 (06:15→17:44)
[2018-10-31 06:23] LABS: BASO % 0.9 % (0.0-1.0); EOS # 0.3 10^3/uL (0.0-0.50); EOS % 9.6 % (0.0-3.0); HEMATOCRIT 27.3 % (36.0-47.0); HEMOGLOBIN 8.7 g/dl (12.0-15.5); LYMPH # 1.1 10^3/uL (1.5-4.5); LYMPH % 31.3 % (24.0-44.0); MEAN CORPUSCULAR HEMOGLOBIN 27.8 pg (27.0-33.0); MEAN CORPUSCULAR HGB CONC 31.9 g/dl (32.0-36.5); MEAN CORPUSCULAR VOLUME 87.2 fl (80.0-96.0); MONO # 0.3 10^3/uL (0.0-0.8); MONO % 9.3 % (0.0-5.0); NEUTROPHILS # 1.7 10^3/uL (1.8-7.7); NEUTROPHILS % 48.6 % (36.0-66.0); PLATELET COUNT, AUTOMATED 242 10^3/uL (150-450); RED BLOOD COUNT 3.13 10^6/uL (4.00-5.40); WHITE BLOOD COUNT 3.5 10^3/uL (4.0-10.0)
[2018-10-31 06:58] LABS: BLOOD UREA NITROGEN 4 MG/DL (7-18); CALCIUM LEVEL 8.1 MG/DL (8.5-10.1); CARBON DIOXIDE LEVEL 23 MEQ/L (21-32); CHLORIDE LEVEL 116 MEQ/L (98-107); CREATININE FOR GFR 0.53 MG/DL (0.55-1.30); GLOMERULAR FILTRATION RATE > 60.0 (>60); GLUCOSE, FASTING 98 MG/DL (70-100); MAGNESIUM LEVEL 1.8 MG/DL (1.8-2.4); POTASSIUM SERUM 3.7 MEQ/L (3.5-5.1); SODIUM LEVEL 147 MEQ/L (136-145); THYROID STIMULATING HORMONE 0.176 uIU/ML (0.358-3.740)
[2018-10-31] MEDS: FLUoxetine 20 MG CAP PO SCH (09:48)
[2018-10-31] MEDS: PANTOPRAZOLE 40MG TAB (PROTONIX) PO SCH (09:48)
[2018-10-31] MEDS: SODIUM CHLORIDE 0.9% INJ 10 ML SYR IV SCH (12:33)
[2018-10-31 13:01] LABS: HEMATOCRIT 27.5 % (36.0-47.0)
--- NOTE | 2018-10-31 13:52 | ECGEPIP ---
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
[2018-10-31 14:00] VITALS: BP 106/63
--- NOTE | 2018-10-31 14:43 | IPNPDOC ---
Date Seen The patient was seen on 10/31/18. Progress Note SUBJECTIVE: Patient is a 38-year-old female with palpitations and shortness of breath. Patient is evaluated bedside this morning. She states that without provocation or heart rate was in the 120s. With even minimal exertion and increased into the 180s. She states that she has known chronic gastrointestinal bleeding and that she wished where her blood counts were dropping. She presented to the hospital for further evaluation. Lowest hemoglobin reported during this hospitalization was 6.7. Patient is ready received 2 units of packed red blood cells with improvement in her hemoglobin. She states that she currently has a port placed received TPN, but previously had a G-tube which unfortunately got dislodged. She would like replacement of her G- tube. OBJECTIVE PHYSICAL EXAMINATION: VITAL SIGNS: Please see below. GENERAL: Petite and fare female, alert and conversant, answers questions appropriately, appropriately dressed in hospital attire, sitting on the hospital bed with legs crossed, in no acute distress. HEENT: Atraumatic, normocephalic, PERRL, EOMI, oral mucosa appears pink and moist, nasal septum is midline, nares are patent. CARDIOVASCULAR: Regular rate and rhythm, normal S1 and S2, no murmur, rub, click. RESPIRATORY: Clear to auscultation bilaterally, adequate inspiratory and expiratory excursion, symmetric air entry throughout, no focal consolidations, no wheeze, rhonchi, crackles. ABDOMINAL: Abdominal striae noted diffusely across abdomen, soft, nontender, nondistended, bowel sounds are somewhat diminished throughout, no guarding, no rebound, several healed surgical incisions and scars noted on the abdomen. EXTREMITIES: Warm, dry, intact, no clubbing, no cyanosis, no peripheral edema. NEUROLOGICAL: No focal neurological deficits. PSYCHOLOGICAL: Mood and affect appropriate. LABORATORY DATA, IMAGING STUDIES, MICROBIOLOGY: Please see below. Chest x-ray, two-view, PA and lateral on 10/30/2018 - right-sided central venous catheter noted. No active disease. DVT prophylaxis ordered?: Knee-high sequential compression. ASSESSMENT AND PLAN: This is a 38-year-old female with shortness of breath with cardiac palpitations and found to be anemic. PROBLEMS: 1. Palpitations: Likely secondary to anemia. Electrocardiogram reveals normal sinus rhythm with a right axis, approximately 100 bpm, no pathologic Q waves, appropriate R-wave progression. Chest x-ray is unrevealing. Troponin <0.02. TSH 0.176 with a free T4 0.78. Patient is afebrile and currently not tachycardic. Hemoglobin was 6.7. Patient consented for blood transfusion. Received 2 units packed red blood cells. 2 more packed red blood cells have been ordered. 2. Shortness of breath: Likely secondary to anemia. No hypoxia. Saturating at 100% on room air. Status post 2 units packed red blood cells. 2 more units of packed red blood cells ordered. Well's criteria score 1. Unlikely that symptoms are related to pulmonary embolism.. 3. Depression: Continue fluoxetine. 4. Gastroesophageal reflux disease: Continue Protonix and sucralfate. 5. Insomnia: Continue Ambien. 6. Nausea and vomiting: Continue promethazine. 7. Pruritus: Continue hydroxyzine. 8. Chronic pain: Continue morphine. 9. History of gastric bypass surgery: Started TPN following dietitian's rec ommendations. DISPOSITION: Transfer 2 units packed red blood cells. Potential discharge in the next 24 hours. VS, I&O, [facility] Vital Signs/I&O Vital Signs Date Time Temp Pulse Resp B/P (MAP) Pulse Ox O2 Delivery O2 Flow Rate FiO2 10/31/18 14:00 97.6 72 18 106/63 (77) 100 Room Air I&O- Last 24 Hours up to 6 AM 10/31/18 06:00 Intake Total 3350 ml Output Total 600 ml Balance 2750 ml Laboratory Data 24H LABS Laboratory Tests 2 10/31/18 06:02: Immature Granulocyte % (Auto) 0.3, White Blood Count 3.5L, Red Blood Count 3.13L, Hemoglobin 8.7#L, Hematocrit 27.3L, Mean Corpuscular Volume 87.2, Mean Corpuscular Hemoglobin 27.8, Mean Corpuscular Hemoglobin Concent 31.9L, Red Cell Distribution Width 14.6H, Platelet Count 242#, Neutrophils (%) (Auto) 48.6, Lymphocytes (%) (Auto) 31.3, Monocytes (%) (Auto) 9.3H, Eosinophils (%) (Auto) 9 .6H, Basophils (%) (Auto) 0.9, Neutrophils # (Auto) 1.7L, Lymphocytes # (Auto) 1.1L, Monocytes # (Auto) 0.3, Eosinophils # (Auto) 0.3, Basophils # (Auto) 0.0, Nucleated Red Blood Cells % (auto) 0.0, Anion Gap 8, Glomerular Filtration Rate > 60.0, Blood Urea Nitrogen 4L, Creatinine 0.53L, Sodium Level 147H, Potassium Level 3.7, Chloride Level 116H, Carbon Dioxide Level 23, Calcium Level 8.1L, Magnesium Level 1.8, Thyroid Stimulating Hormone (TSH) 0.176L CBC/BMP Laboratory Tests 10/30/18 17:50 10/31/18 06:02 Red Blood Count 3.13 L, Mean Corpuscular Volume 87.2, Mean Corpuscular Hemoglobin 27.8, Mean Corpuscular Hemoglobin Concent 31.9 L, Red Cell Distribution Width 14.6 H, Neutrophils (%) (Auto) 48.6, Lymphocytes (%) (Auto) 31.3, Monocytes (%) (Auto) 9.3 H, Eosinophils (%) (Auto) 9.6 H, Basophils (%) (Auto) 0.9, Neutrophils # (Auto) 1.7 L, Lymphocytes # (Auto) 1.1 L, Monocytes # (Auto) 0.3, Eosinophils # (Auto) 0.3, Basophils # (Auto) 0.0, Calcium Level 8.1 L 10/31/18 12:40 ASHLEIGH PADILLA DO Oct 31, 2018 14:43
[2018-10-31] MEDS ORDERED: diphenhydrAMINE 25 MG CAP PO ONE (14:45)
[2018-10-31] MEDS ORDERED: diphenhydrAMINE INJ 50MG/ML VIAL (J1200) IV ONE (15:15)
[2018-10-31 22:00] VITALS: BP 113/64
[2018-10-31] MEDS ORDERED: FAT EMULSION IV 20% 500 ML IV SCH (22:00)
[2018-10-31] MEDS ORDERED: AMINO AC/ELECTROLYTE/DEX/CALC 2,000 ML IV SCH (22:00)
[2018-11-01 02:00] VITALS: BP 108/60
[2018-11-01] MEDS: ONDANSETRON 4MG/2ML VIAL (J2405) IV PRN ×2 (02:25→08:35)
[2018-11-01] MEDS: MORPHINE 4 MG/ML 1ML VIAL/SYRINGE (J2270) IV PRN ×2 (02:25→08:36)
[2018-11-01] MEDS: SUCRALFATE SUSP 1GM/10ML UD PO SCH ×3 (02:30→11:51)
[2018-11-01 04:53] LABS: BASO % 0.7 % (0.0-1.0); EOS # 0.5 10^3/uL (0.0-0.50); HEMATOCRIT 32.9 % (36.0-47.0); HEMOGLOBIN 10.7 g/dl (12.0-15.5); LYMPH # 1.2 10^3/uL (1.5-4.5); LYMPH % 21.8 % (24.0-44.0); MEAN CORPUSCULAR HEMOGLOBIN 28.4 pg (27.0-33.0); MEAN CORPUSCULAR HGB CONC 32.5 g/dl (32.0-36.5); MEAN CORPUSCULAR VOLUME 87.3 fl (80.0-96.0); MONO # 0.5 10^3/uL (0.0-0.8); MONO % 8.7 % (0.0-5.0); NEUTROPHILS # 3.4 10^3/uL (1.8-7.7); NEUTROPHILS % 60.4 % (36.0-66.0); PLATELET COUNT, AUTOMATED 253 10^3/uL (150-450); RED BLOOD COUNT 3.77 10^6/uL (4.00-5.40); WHITE BLOOD COUNT 5.6 10^3/uL (4.0-10.0)
[2018-11-01 05:27] LABS: BLOOD UREA NITROGEN 8 MG/DL (7-18); CALCIUM LEVEL 7.8 MG/DL (8.5-10.1); CARBON DIOXIDE LEVEL 27 MEQ/L (21-32); CHLORIDE LEVEL 113 MEQ/L (98-107); CREATININE FOR GFR 0.59 MG/DL (0.55-1.30); GLOMERULAR FILTRATION RATE > 60.0 (>60); GLUCOSE, FASTING 99 MG/DL (70-100); MAGNESIUM LEVEL 1.8 MG/DL (1.8-2.4); POTASSIUM SERUM 3.7 MEQ/L (3.5-5.1); SODIUM LEVEL 146 MEQ/L (136-145)
[2018-11-01 06:00] VITALS: BP 112/63
[2018-11-01] MEDS: FLUoxetine 20 MG CAP PO SCH (08:35)
[2018-11-01] MEDS: SODIUM CHLORIDE 0.9% INJ 10 ML SYR IV SCH (08:35)
[2018-11-01] MEDS: PANTOPRAZOLE 40MG TAB (PROTONIX) PO SCH (08:35)
[2018-11-01 10:00] VITALS: BP 110/59
--- NOTE | 2018-11-01 11:23 | DS.PDOC ---
Discharge Summary General Date of Admission Oct 30, 2018 at 15:53 Date of Discharge 11/01/2018 Primary Care Physician: CYNTHIA SIMMONS MD Attending Physician: JOHANN BUENROSTRO MD Discharge Summary PROCEDURES PERFORMED DURING STAY: None. ADMITTING DIAGNOSES: 1. Dehydration. 2. Anemia. 3. Chronic back pain. DISCHARGE DIAGNOSES: 1. Palpations and shortness of breath likely secondary to anemia. 2. Gastroesophageal reflux disease. 3. Insomnia. 4. Depression. 5. Nausea and vomiting. 6. Pruritus. 7. Chronic pain. 8. History of gastric bypass. COMPLICATIONS/CHIEF COMPLAINT: Anemia Hematochezia Nausea Vomiting. HISTORY OF PRESENT ILLNESS: Ms. 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 She said her HR was 181bpm and she felt extremely with minimal ambulation to the bathroom, so she decided to come in because she thought she might need blood transfusion. Patient denied fever , chills, chest pain. Said she has occasional vomiting (sometimes bloody), bloody stools almost once per week. She said she had colonoscopy September 2018, but doesn't remember the result. She said she had EGD done one week ago. HOSPITAL COURSE: Patient was admitted for further medical management. She is status post 3 L normal saline. Repeat hemoglobin and hematocrit showed decreased to 6.7. She was consented for blood transfusion. She received a total of 4 units of packed red blood cells. Dietitian was consulted for TPN management. Patient follows with gastrointestinal, hematologic, and surgical specialists in [place]. Recommend continued regular follow-up care upon discharge. Partial evaluations, besides hemoglobin, well otherwise stable. Continue patient's regular started her medications. Patient improved currently throughout hos pitalization. Stable at time of discharge. DISCHARGE MEDICATIONS: Please see below. ALLERGIES: Please see below. PHYSICAL EXAMINATION ON DISCHARGE: VITAL SIGNS: Please see below. GENERAL: Petite and fare female, alert and conversant, answers questions appropriately, appropriately dressed in hospital attire, sitting on the hospital bed with legs crossed, in no acute distress. HEENT: Atraumatic, normocephalic, PERRL, EOMI, oral mucosa appears pink and moist, nasal septum is midline, nares are patent. CARDIOVASCULAR: Regular rate and rhythm, normal S1 and S2, no murmur, rub, click. RESPIRATORY: Clear to auscultation bilaterally, adequate inspiratory and expiratory excursion, symmetric air entry throughout, no focal consolidations, no wheeze, rhonchi, crackles. ABDOMINAL: Abdominal striae noted diffusely across abdomen, soft, nontender, nondistended, bowel sounds are somewhat diminished throughout, no guarding, no rebound, several healed surgical incisions and scars noted on the abdomen. EXTREMITIES: Warm, dry, intact, no clubbing, no cyanosis, no peripheral edema. NEUROLOGICAL: No focal neurological deficits. PSYCHOLOGICAL: Mood and affect appropriate. LABORATORY DATA: Please see below. IMAGIN. Chest x-ray, two-view, PA and lateral on 10/30/2018 - right-sided central venous catheter. No active disease. PROGNOSIS: Stable. ACTIVITY: As tolerated. DIET: TPN. DISCHARGE PLAN: As outlined below. DISPOSITION: Home. DISCHARGE INSTRUCTIONS: 1. Follow-up with primary care provider, Dr. Simmons, in 7-10 days. 2. Follow-up with her regularly scheduled care with specialists in [place]. 3. Continue home medications. 4. Monitor for signs of bleeding. 5. Return to the nearest emergency department if symptoms worsen or persist. ITEMS TO FOLLOWUP ON ON OUTPATIENT: 1. Consider placement of G-tube. 2. Regularly scheduled iron infusions. DISCHARGE CONDITION: Stable. TIME SPENT ON DISCHARGE: Greater than 30 minutes. Vital Signs/I&Os Vital Signs Date Time Temp Pulse Resp B/P (MAP) Pulse Ox O2 Delivery O2 Flow Rate FiO2 11/01/18 10:00 98.1 81 13 110/59 (76) 99 Room Air I&O- Last 24 Hours up to 6 AM 11/01/18 06:00 Intake Total 850 ml Output Total 0 ml Balance 850 ml Laboratory Data Labs 24H Laboratory Tests 2 11/01/18 04:42: Anion Gap 6L, Glomerular Filtration Rate > 60.0, Blood Urea Nitrogen 8#, Creatinine 0.59, Sodium Level 146H, Potassium Level 3.7, Chloride Level 113H, Carbon Dioxide Level 27, Calcium Level 7.8L, Magnesium Level 1.8 11/01/18 04:43: Immature Granulocyte % (Auto) 0.4, White Blood Count 5.6, Red Blood Count 3.77L, Hemoglobin 10.7L, Hematocrit 32.9L, Mean Corpuscular Volume 87.3, Mean Corpuscular Hemoglobin 28.4, Mean Corpuscular Hemoglobin Concent 32.5, Red Cell Distribution Width 14.5, Platelet Count 253, Neutrophils (%) (Auto) 60.4, Lymphocytes (%) (Auto) 21.8L, Monocytes (%) (Auto) 8.7H, Eosinophils (%) (Auto) 8.0H, Basophils (%) (Auto) 0.7, Neutrophils # (Auto) 3.4, Lymphocytes # (Auto) 1.2L, Monocytes # (Auto) 0.5, Eosinophils # (Auto) 0.5, Basophils # (Auto) 0.0, Nucleated Red Blood Cells % (auto) 0.0 CBC/BMP Laboratory Tests 10/31/18 12:40 11/01/18 04:42 Calcium Level 7.8 L 11/01/18 04:43 Red Blood Count 3.77 L, Mean Corpuscular Volume 87.3, Mean Corpuscular Hemoglobin 28.4, Mean Corpuscular Hemoglobin Concent 32.5, Red Cell Distribution Width 14.5, Neutrophils (%) (Auto) 60.4, Lymphocytes (%) (Auto) 21.8 L, Monocytes (%) (Auto) 8.7 H, Eosinophils (%) (Auto) 8.0 H, Basophils (%) (Auto) 0.7, Neutrophils # (Auto) 3.4, Lymphocytes # (Auto) 1.2 L, Monocytes # (Auto) 0.5, Eosinophils # (Auto) 0.5, Basophils # (Auto) 0.0 Discharge Medications Scheduled Fluoxetine Hcl (Fluoxetine HCl) 40 Mg Cap, 40 MG PO DAILY, (Reported) Ondansetron (Ondansetron HCl) 4 Mg/2 Ml Inj, 8 MG INJ Q8H, (Reported) Pantoprazole Sodium (Pantoprazole Sodium) 40 Mg Tab, 40 MG PO DAILY, (Reported) Sucralfate (Sucralfate) 1 Gm/10 Ml Rani, 10 ML PO Q6H, (Reported) Zolpidem Tartrate (Zolpidem Tartrate) 10 Mg Tab, 10 MG PO QHS, (Reported) Scheduled PRN Hydroxyzine HCl (Hydroxyzine HCl) 10 Mg/5 Ml Syp, 5 ML PO Q12H PRN for ITCHING, (Reported) Morphine Sulfate (Morphine Sulfate) 10 Mg/5 Ml Martha, 5 ML PO Q4H PRN for PAIN, (Reported) Promethazine HCl (Phenadoz) 25 Mg Sup, 25 MG ND for NAUSEA OR VOMITING, (Reported) Allergies Coded Allergies: Butorphanol (Verified Allergy, Severe, HIVES/RESP. PROBLEMS (PERCOCET AND TYL#3 OK), 08/23/18) HAD HAD MORPHINE AND DILAUDID IN THE PAST Levofloxacin (Verified Allergy, Severe, hives/throat swelling, 08/23/18) Sulfa Drugs (Verified Allergy, Severe, SWELLING,HIVES,RESP. PROBLEMS, 08/23/18) Tomato (Verified Allergy, Severe, HIVES/RESP. PROBLEMS, 08/23/18) Tramadol (Verified Allergy, Severe, SOB, 08/23/18) HAD HAD MORPHINE AND DILAUDID IN THE PAST NSAIDs (Verified Adverse Reaction, Mild, Gastric Bypass, 08/23/18) Scopolamine (Verified Adverse Reaction, Mild, vision loss, 10/07/18) ASHLEIGH PADILLA DO Nov 01, 2018 11:23
== END 2018-11-01 13:26 | disposition home or self-care (01) ==
LOC: M ED 08:46 → M ED INP 15:53 → M MSPAV 10-31 00:06
PROVIDERS: ADMIT Internal Medicine; ATTEND Internal Medicine
DX: R00.2 Palpitations (principal); R06.02 Shortness of breath; D64.9 Anemia, unspecified; K21.9 Gastro-esophageal reflux disease without esophagitis; G47.00 Insomnia, unspecified; F32.9 Major depressive disorder, single episode, unspecified; R11.2 Nausea with vomiting, unspecified; L29.9 Pruritus, unspecified; G89.29 Other chronic pain; Z98.84 Bariatric surgery status; K92.1 Melena; Z79.899 Other long term (current) drug therapy
CPT/HCPCS: 36415; 36430; 71046; 80048; 80076; 82550; 82553; 83735; 84439; 84443; 84484; 84703; 85014; 85018; 85025; 85610; 85730; 86850; 86900; 86901; 86920; 93005; 93041; 94760; 96361; 96374; 96375; 96376; 99285; J1200; J2270; J2405; P9016

== ENCOUNTER → 2018-11-06 | Outpatient (REF) | payer OTHER ==
[~2018-11-06] MED LIST changes: +MORP10SO PO; +PANT40TA3 PO; +SUCR1SUS PO
[2018-11-06 16:59] LABS: BASO % 0.7 % (0.0-1.0); EOS # 0.3 10^3/uL (0.0-0.50); EOS % 4.9 % (0.0-3.0); HEMATOCRIT 38.5 % (36.0-47.0); HEMOGLOBIN 12.8 g/dl (12.0-15.5); LYMPH # 1.1 10^3/uL (1.5-4.5); LYMPH % 19.4 % (24.0-44.0); MEAN CORPUSCULAR HEMOGLOBIN 27.9 pg (27.0-33.0); MEAN CORPUSCULAR HGB CONC 33.2 g/dl (32.0-36.5); MEAN CORPUSCULAR VOLUME 84.1 fl (80.0-96.0); MONO # 0.4 10^3/uL (0.0-0.8); MONO % 6.3 % (0.0-5.0); NEUTROPHILS # 3.9 10^3/uL (1.8-7.7); NEUTROPHILS % 68.5 % (36.0-66.0); PLATELET COUNT, AUTOMATED 261 10^3/uL (150-450); RED BLOOD COUNT 4.58 10^6/uL (4.00-5.40); WHITE BLOOD COUNT 5.7 10^3/uL (4.0-10.0)
[2018-11-06 17:57] LABS: ALBUMIN 3.5 GM/DL (3.2-5.2); ALT/SGPT 42 U/L (12-78); BLOOD UREA NITROGEN 8 MG/DL (7-18); CALCIUM LEVEL 8.8 MG/DL (8.5-10.1); CARBON DIOXIDE LEVEL 28 MEQ/L (21-32); CHLORIDE LEVEL 104 MEQ/L (98-107); CREATININE FOR GFR 0.65 MG/DL (0.55-1.30); GLOMERULAR FILTRATION RATE > 60.0 (>60); GLUCOSE, FASTING 100 MG/DL (70-100); MAGNESIUM LEVEL 2.4 MG/DL (1.8-2.4); PREALBUMIN 30.6 MG/DL (20.0-40.0); SODIUM LEVEL 140 MEQ/L (136-145); TOTAL PROTEIN 6.5 GM/DL (6.4-8.2); TRIGLYCERIDES LEVEL 85 MG/DL (<150)
== END ==
LOC: M LAB REF 16:38
PROVIDERS: ATTEND Internal Medicine Gastroenterology
DX: E43 Unspecified severe protein-calorie malnutrition (principal); K90.49 Malabsorption due to intolerance, not elsewhere classified; K31.84 Gastroparesis

== ENCOUNTER → 2018-11-06 | Outpatient (REF) | payer OTHER ==
[2018-11-06 17:04] LABS: BASO % 0.7 % (0.0-1.0); EOS # 0.2 10^3/uL (0.0-0.50); EOS % 4.2 % (0.0-3.0); HEMOGLOBIN 12.9 g/dl (12.0-15.5); LYMPH # 1.2 10^3/uL (1.5-4.5); LYMPH % 20.5 % (24.0-44.0); MEAN CORPUSCULAR HEMOGLOBIN 28.1 pg (27.0-33.0); MEAN CORPUSCULAR HGB CONC 33.1 g/dl (32.0-36.5); MONO # 0.4 10^3/uL (0.0-0.8); MONO % 6.6 % (0.0-5.0); NEUTROPHILS # 3.9 10^3/uL (1.8-7.7); NEUTROPHILS % 67.7 % (36.0-66.0); PLATELET COUNT, AUTOMATED 263 10^3/uL (150-450); RED BLOOD COUNT 4.59 10^6/uL (4.00-5.40); WHITE BLOOD COUNT 5.8 10^3/uL (4.0-10.0)
== END ==
LOC: M LAB REF 16:41
PROVIDERS: ATTEND Physician Assistant
DX: D50.9 Iron deficiency anemia, unspecified (principal)

== ENCOUNTER → 2018-11-11 | Outpatient (REF) | payer OTHER ==
[2018-11-11 17:18] LABS: ALBUMIN 3.7 GM/DL (3.2-5.2); ALT/SGPT 28 U/L (12-78); BILIRUBIN,TOTAL 0.9 MG/DL (0.2-1.0); BLOOD UREA NITROGEN 11 MG/DL (7-18); CALCIUM LEVEL 8.4 MG/DL (8.5-10.1); CARBON DIOXIDE LEVEL 25 MEQ/L (21-32); CHLORIDE LEVEL 105 MEQ/L (98-107); CREATININE FOR GFR 1.07 MG/DL (0.55-1.30); GLOMERULAR FILTRATION RATE > 60.0 (>60); GLUCOSE, FASTING 96 MG/DL (70-100); MAGNESIUM LEVEL 2.1 MG/DL (1.8-2.4); PHOSPHORUS LEVEL 4.4 MG/DL (2.5-4.9); POTASSIUM SERUM 4.1 MEQ/L (3.5-5.1); SODIUM LEVEL 140 MEQ/L (136-145); TOTAL PROTEIN 6.5 GM/DL (6.4-8.2); TRIGLYCERIDES LEVEL 101 MG/DL (<150)
== END ==
LOC: M LAB REF 15:42
PROVIDERS: ATTEND Internal Medicine Gastroenterology
DX: E43 Unspecified severe protein-calorie malnutrition (principal); B85.4 Mixed pediculosis and phthiriasis; K90.49 Malabsorption due to intolerance, not elsewhere classified; K31.84 Gastroparesis

== ENCOUNTER → 2018-11-11 | Outpatient (REF) | payer OTHER ==
[2018-11-11 16:08] LABS: BASO % 0.6 % (0.0-1.0); EOS # 0.3 10^3/uL (0.0-0.50); EOS % 3.6 % (0.0-3.0); HEMATOCRIT 38.4 % (36.0-47.0); HEMOGLOBIN 12.5 g/dl (12.0-15.5); LYMPH # 1.7 10^3/uL (1.5-4.5); LYMPH % 24.1 % (24.0-44.0); MEAN CORPUSCULAR HEMOGLOBIN 28.4 pg (27.0-33.0); MEAN CORPUSCULAR HGB CONC 32.6 g/dl (32.0-36.5); MEAN CORPUSCULAR VOLUME 87.3 fl (80.0-96.0); MONO # 0.6 10^3/uL (0.0-0.8); MONO % 8.7 % (0.0-5.0); NEUTROPHILS # 4.4 10^3/uL (1.8-7.7); NEUTROPHILS % 62.7 % (36.0-66.0); PLATELET COUNT, AUTOMATED 288 10^3/uL (150-450)
== END ==
LOC: M LAB REF 15:44
PROVIDERS: ATTEND Physician Assistant
DX: D50.9 Iron deficiency anemia, unspecified (principal)

== ENCOUNTER → 2018-11-13 | Outpatient (CLI) | payer BC, OTHER ==
--- NOTE | 2018-11-28 00:39 | ECWPNPC ---
PATIENT NAME: NI RICHMOND : 1980 GENDER: FEMALE VISIT DATE: 11/13/2018 DISCHARGE DATE: 11/13/18 1445 VISIT LOCKED DATE TIME: PHYSICIAN: JA CANO RESOURCE: JA CANO REASON FOR APPOINTMENT 1. ABD PAIN-SW HISTORY OF PRESENT ILLNESS HISTORY OF PRESENT ILLNESS: HERE FOR F/U OF CHRONIC ABDOMINAL PAIN WITH HISTORY OF MULTIPLE HOSPITALIZATIONS FOR COMPLICATIONS OF GASTRIC BYPASS IN 2008.CURRENTLY UNABLE TO TOLERATE PO FOOD OR FLUIDS.HAVING BLOOD TRANSFUSIONS ON A REGULAR BASIS WITHOUT RETURN TO NORMAL HGB.FOLLOWING WITH GASTROENTEROLOGY AND HEMATOLOGY IN [place].RATING ABDOMINAL PAIN 4-8/10 VAS. PAIN THE PATIENT DESCRIBES THE PAIN... FALL RISK SCREENING: SCREENING :NO FALLS IN THE PAST YEAR CURRENT MEDICATIONS TAKING AMBIEN CR 12.5 MG TABLET EXTENDED RELEASE 1 TABLET AT BEDTIME NEEDED ORALLY ONCE A DAY. CODE C TAKING FLUOXETINE HCL 20 MG CAPSULE 1 CAPSULE ORALLY ONCE A DAY TAKING ZOFRAN ODT 8 MG TABLET DISPERSIBLE 1 INJECTION INTRAVENOUSLY Q 6 HRS PRN NAUSEA TAKING ZOLPIDEM TARTRATE 10 MG TABLET 1 TABLET AT BEDTIME NEEDED ORALLY BEFORE BEDTIME MDD=1 TAKING MORPHINE SULFATE 10 MG/5ML SOLUTION 5 ML NEEDED ORALLY EVERY 4 HRS MDD 30ML TAKING HYDROXYZINE HCL 10 MG/5ML SYRUP 25 ML NEEDED ORALLY EVERY 6 HRS PRN NOT-TAKING HYDROMORPHONE HCL 4 MG TABLET DIRECTED ORALLY Q8H PRN MDD3 MEDICATION LIST REVIEWED AND RECONCILED WITH THE PATIENT PAST MEDICAL HISTORY DEPRESSION/ANXIETY HYDRATION ISSUES HX OF MRSA BACK PROBLEM ALLERGIES SULFA (FOR ALLERGY USE ONLY): ANAPHYLAXIS: ALLERGY NSAIDS: GI BLEED: CONTRAINDICATION LEVAQUIN: ANAPHYLAXIS: ALLERGY SURGICAL HISTORY BACK SURGERY DR SU DECOMPRESSION SURGERY 08/2013 TONSILS GASTRIC BYPASS 2008 ENDOMETRIAL ABLATION HYSTERECTOMY HUBBARD CATHETER 05/21/2014 RIGHT LEG WOUND DRAINED-DESIREE 04/2017 LEFT SUBCLAVIAN PORT 10/2017 J-TUBE PLACEMENT AND REMOVAL G-TUBE PLACEMENT 11/2017 SUBCLAVIAN PORT REMOVE 04/2018 PICC LINE 06/2018 FAMILY HISTORY NO FAMILY HISTORY DOCUMENTED. SOCIAL HISTORY GENERAL: TOBACCO USE ARE YOU A:NONSMOKER LUNG CANCER SCREENING SMOKING STATUS:NON SMOKER ALCOHOL SCREENING DID YOU HAVE A DRINK CONTAINING ALCOHOL IN THE PAST YEAR?NO POINTS0 INTERPRETATIONNEGATIVE RECREATIONAL DRUG USE DRUG USE?NO CAFFEINE CAFFEINE USE?NO SEXUAL HX HAD SEX IN THE LAST 12 MONTHS (VAGINAL, ORAL, OR ANAL)?YES WITHMEN ONLY USE PROTECTION?NO PREVENTION STRATEGIES DISCUSSED:OTHER HAVE YOU EVER HAD AN STD?NO ZOROASTRIAN [id number] NONE LANGUAGE LANGUAGES SPOKEN:LAO LEARNING BARRIERS / SPECIAL NEEDS CHANGE FROM LAST VISIT?NO BARRIERS TO LEARNING?NO HEARING IMPAIRED?NO VISION IMPAIRED?NO COGNITIVELY IMPAIRED?NO READINESS TO LEARN?YES LEARNING PREFERENCES?NO LEARNING CAPABILITIES PRESENT?YES EMOTIONAL BARRIERS?NO SPECIAL DEVICES?NO ASSEMBLER INSTALLER GENERAL NEEDED?NO DOMESTIC VIOLENCE DO YOU FEEL SAFE IN YOUR ENVIRONMENT?YES DIET: ALL NUTRITION THROUGH PICC LINE. EXERCISE: WALKS. MARITAL STATUS: . PAIN CLINIC PFS, CLERGY, PUBLIC HEALTH REFERRALS PFS REFERRAL NEEDED?NO CLERGY REFERRAL NEEDED?NO PUBLIC HEALTH REFERRAL NEEDED?NO WAS THE PROVIDER NOTIFIED OF ANY PERTINENT INFO?NO HAS THE PATIENT BEEN EDUCATED REGARDING HIS/HER PLAN OF CARE?YES HAS THE PATIENT BEEN EDUCATED REGARDING PAIN, THE RISK FOR PAIN, THE IMPORTANCE OF EFFECTIVE PAIN MANAGEMENT, AND THE PAIN ASSESSMENT PROCESS?YES ADVANCE DIRECTIVE ADVANCE DIRECTIVE DISCUSSED WITH PATIENT:YES HCP - GARTH RICHMOND REVIEWED WITH PATIENT 11/13/18 1417 JS. HOSPITALIZATION/MAJOR DIAGNOSTIC PROCEDURE RELATED TO SURGERY G TUBE INFECTION 7 DAYS 10--18 BLOOD TRANSFUSION 10/2018 REVIEW OF SYSTEMS REVIEWED BY: PROVIDER: JA DALEY . CONSTITUTIONAL: ANY CHANGE IN YOUR MEDICAL CONDITION? NO . CHILLS NO . FEVER NO . INFECTION: DO YOU HAVE NEW INFECTIONS? NO . DO YOU HAVE HISTORY OF MRSA? NO . MUSCULOSKELETAL: ANY NEW PATTERNS OF PAIN OR NUMBNESS? NO . GASTROENTEROLOGY: ANY NEW CHANGE IN BOWEL CONTROL? NO . GENITOURINARY: ANY NEW CHANGE IN BLADDER CONTROL? NO . IS THERE A CHANCE YOU COULD BE ? NO . HEMATOLOGY/LYMPH: DO YOU TAKE ANY BLOOD THINNERS? (FOR EXAMPLE- COUMADIN, PLAVIX, AGGRENOX, PLATEL, PRADAXA, OR XARELTO) NO . WHEN WAS YOUR LAST DOSE? DATE: TIME: . NEUROLOGY: HAVE YOU FALLEN IN THE PAST 12 MONTHS? NO . ANY NEW EXTREMITY NUMBNESS OR WEAKNESS? NO . CARDIOLOGY: DO YOU HAVE A PACEMAKER OR DEFIBRILLATOR? NO . RESPIRATORY: HAVE YOU BEEN SICK IN THE PAST WEEK? NO . FEVER NO . FLU LIKE SYMPTOMS? NO . COUGH NO . INTEGUMENTARY: DO YOU HAVE ANY RASHES OR OPEN SORES? NO . ALLERGIC/IMMUNO: ARE YOU ALLERGIC TO IV DYE? NO . ANY NEW ALLERGIES? NO . PSYCHIATRIC: DO YOU HAVE THOUGHTS OF HURTING YOURSELF OR SOMEONE ELSE? NO . ARE YOU ABUSED, NEGLECTED, OR IN AN UNSAFE ENVIRONMENT? NO . ENDOCRINOLOGY: ARE YOU DIABETIC? NO . OTHER: DO YOU NEED ANY PRESCRIPTIONS? NO . IF YES, PLEASE LIST: ____ . ANY NEW PROBLEMS WITH YOUR MEDICATIONS? NO . WHEN DID YOU LAST EAT? ____ . WHEN DID YOU LAST DRINK? ____ . WHAT DID YOU LAST DRINK? ____ . NAME OF PERSON DRIVING YOU HOME? ____ . DO YOU HAVE ANY OTHER QUESTIONS OR CONCERNS NO . VITAL SIGNS WT 147.6 LBS, HT 66 IN, BMI 23.82 INDEX, BP 118/58 MM HG, HR 125 /MIN, RR 18 /MIN, TEMP 97.9 F, OXYGEN SAT % 98%, SAFE IN ENV? (Y/N) YES, NA INITIALS AW 1405, REVIEWED BY: JORGE. EXAMINATION GENERAL EXAMINATION: GENERAL APPEARANCE:AWAKE,ALERT ,PLEAASANT . PSYCHAFFECT NORMAL . LUNGS:LUNG GARCIA ARE CLEAR TO AUSCULTATION BILATERALLY. GOOD MOVEMENT OF AIR . HEART:S1, S2 IN A REGULAR RATE AND RHYTHM. NO SIGNIFICANT MURMURS, RUBS OR GALLOPS NOTED . ASSESSMENTS CHRONICALLY ON OPIATE THERAPY - Z79.899 ABDOMINAL PAIN, UNSPECIFIED ABDOMINAL LOCATION - R10.9 TREATMENT CHRONICALLY ON OPIATE THERAPY CONTINUE MORPHINE SULFATE SOLUTION, 10 MG/5ML, 5 ML NEEDED, ORALLY, EVERY 4 HRS MDD 30ML REFILL HYDROXYZINE HCL SYRUP, 10 MG/5ML, 25 ML NEEDED, ORALLY, EVERY 6 HRS PRN, 30 DAY(S), 200, REFILLS 0 NOTES: ISTOP REGISTRY REVIEWED AND DEMONSTRATES COMPLLIANCE. (REF #[id number] ) BRINGS IN MEDICATIONS WHICH IS APPROPRIATE FOR WHAT WAS DISPENSED. RECENT URINE TOXICOLOGY REVIEWED. NO UNAUTHORIZED MEDICATIONS. NO ILLICIT SUBSTANCES AND PRESCRIBED MEDICATIONS WERE PRESENT. , RISKS AND BENEFITS OF NARCOTIC/OPIOD MEDICATIONS WERE REVIEWED WITH PATIENT - THIS INCLUDES BUT IS NOT LIMITED TO RISK OF DEPENDANCE/DEVELOPMENT OF ADDICTION, MOOD DISTURBANCE AND DEPRESSION, OSTEOPOROSIS, HORMONAL AND LABIDAL CHANGES, RESPIRATORY DEPRESSION AND . PATIENT IS ADVISED NOT TO DRIVE OR DRINK ALCOHOL WHILE ON THESE MEDICATIONS. PROCEDURE CODES FA211 ESTABILISHED PATIENT [facility] CHARGE DISPOSITION & COMMUNICATION FOLLOW UP 2 MONTHS ELECTRONICALLY SIGNED BY EDI DOSHI ON 11/27/2018 AT 01:23 PM EST DISCLAIMER : THIS IS A VISIT SUMMARY EXTRACTED FROM THE [employer] CHART. IT IS NOT A COPY OF THE [employer] PROGRESS NOTE. HAILEY
== END ==
LOC: M PAIN 14:00
PROVIDERS: ATTEND Nurse Practitioner Family
DX: R10.9 Unspecified abdominal pain (principal); G89.29 Other chronic pain; F32.9 Major depressive disorder, single episode, unspecified; F41.9 Anxiety disorder, unspecified; Z79.899 Other long term (current) drug therapy; Z88.2 Allergy status to sulfonamides; Z88.6 Allergy status to analgesic agent; Z88.8 Allergy status to other drugs, medicaments and biological substances; Z98.84 Bariatric surgery status

== ENCOUNTER → 2018-11-17 | Outpatient (REF) | payer OTHER ==
[~2018-11-17] MED LIST changes: +ZOLP12.515
[2018-11-17 19:10] LABS: BASO % 0.7 % (0.0-1.0); EOS # 0.2 10^3/uL (0.0-0.50); HEMATOCRIT 39.4 % (36.0-47.0); HEMOGLOBIN 12.8 g/dl (12.0-15.5); LYMPH # 1.7 10^3/uL (1.5-4.5); LYMPH % 29.3 % (24.0-44.0); MEAN CORPUSCULAR HEMOGLOBIN 28.2 pg (27.0-33.0); MEAN CORPUSCULAR HGB CONC 32.5 g/dl (32.0-36.5); MEAN CORPUSCULAR VOLUME 86.8 fl (80.0-96.0); MONO # 0.6 10^3/uL (0.0-0.8); MONO % 9.5 % (0.0-5.0); NEUTROPHILS # 3.3 10^3/uL (1.8-7.7); NEUTROPHILS % 56.2 % (36.0-66.0); PLATELET COUNT, AUTOMATED 395 10^3/uL (150-450); RED BLOOD COUNT 4.54 10^6/uL (4.00-5.40); WHITE BLOOD COUNT 5.8 10^3/uL (4.0-10.0)
[2018-11-17 19:34] LABS: ALBUMIN 4.1 GM/DL (3.2-5.2); ALT/SGPT 26 U/L (12-78); BILIRUBIN,TOTAL 0.8 MG/DL (0.2-1.0); BLOOD UREA NITROGEN 8 MG/DL (7-18); CALCIUM LEVEL 8.8 MG/DL (8.5-10.1); CARBON DIOXIDE LEVEL 24 MEQ/L (21-32); CHLORIDE LEVEL 103 MEQ/L (98-107); CREATININE FOR GFR 0.77 MG/DL (0.55-1.30); GLOMERULAR FILTRATION RATE > 60.0 (>60); GLUCOSE, FASTING 94 MG/DL (70-100); MAGNESIUM LEVEL 2.2 MG/DL (1.8-2.4); PHOSPHORUS LEVEL 3.4 MG/DL (2.5-4.9); POTASSIUM SERUM 3.7 MEQ/L (3.5-5.1); PREALBUMIN 31.9 MG/DL (20.0-40.0); SODIUM LEVEL 137 MEQ/L (136-145); TRIGLYCERIDES LEVEL 120 MG/DL (<150)
[2018-11-20 08:07] LABS: COPPER PLASMA 148 ug/dL (72-166); ZINC PLASMA 84 ug/dL (56-134)
== END ==
LOC: M LAB REF 16:50
PROVIDERS: ATTEND Internal Medicine Gastroenterology
DX: E43 Unspecified severe protein-calorie malnutrition (principal); B96.5 Pseudomonas (aeruginosa) (mallei) (pseudomallei) as the cause of diseases classified elsewhere

== ENCOUNTER → 2018-11-28 | Outpatient (REF) | payer OTHER ==
[~2018-11-28] MED LIST changes: -ZOLP12.515
[2018-11-28 11:55] LABS: BASO % 0.3 % (0.0-1.0); EOS # 0.2 10^3/uL (0.0-0.50); EOS % 2.7 % (0.0-3.0); HEMATOCRIT 36.9 % (36.0-47.0); HEMOGLOBIN 11.9 g/dl (12.0-15.5); LYMPH # 1.6 10^3/uL (1.5-4.5); LYMPH % 27.4 % (24.0-44.0); MEAN CORPUSCULAR HEMOGLOBIN 27.8 pg (27.0-33.0); MEAN CORPUSCULAR HGB CONC 32.2 g/dl (32.0-36.5); MEAN CORPUSCULAR VOLUME 86.2 fl (80.0-96.0); MONO # 0.5 10^3/uL (0.0-0.8); MONO % 8.2 % (0.0-5.0); NEUTROPHILS # 3.6 10^3/uL (1.8-7.7); NEUTROPHILS % 60.9 % (36.0-66.0); PLATELET COUNT, AUTOMATED 269 10^3/uL (150-450); RED BLOOD COUNT 4.28 10^6/uL (4.00-5.40); WHITE BLOOD COUNT 5.9 10^3/uL (4.0-10.0)
[2018-11-28 12:25] LABS: ERYTHROCYTE SEDIMENTATION RATE 5 mm/hr (0-20)
== END ==
LOC: M LABDRAW1 10:00
PROVIDERS: ATTEND Family Medicine
DX: K92.2 Gastrointestinal hemorrhage, unspecified (principal); N30.01 Acute cystitis with hematuria

== ENCOUNTER → 2018-11-29 | Outpatient (REF) | payer OTHER | LOC: M SFHCPLAZ 09:58 | PROVIDERS: ATTEND Family Medicine | DX: K92.2 Gastrointestinal hemorrhage, unspecified (principal); N30.01 Acute cystitis with hematuria ==

== ENCOUNTER → 2018-12-02 | Outpatient (REF) | payer OTHER ==
[2018-12-03 15:33] LABS: HEMATOCRIT 32.4 % (36.0-47.0); HEMOGLOBIN 10.4 g/dl (12.0-15.5); MEAN CORPUSCULAR HEMOGLOBIN 28.4 pg (27.0-33.0); MEAN CORPUSCULAR HGB CONC 32.1 g/dl (32.0-36.5); MEAN CORPUSCULAR VOLUME 88.5 fl (80.0-96.0); NEUTROPHILS % 70.3 % (36.0-66.0); PLATELET COUNT, AUTOMATED 323 10^3/uL (150-450); RED BLOOD COUNT 3.66 10^6/uL (4.00-5.40); WHITE BLOOD COUNT 5.9 10^3/uL (4.0-10.0)
[2018-12-03 15:34] LABS: BASO % 0.7 % (0.0-1.0); EOS # 0.1 10^3/uL (0.0-0.50); EOS % 2.4 % (0.0-3.0); LYMPH # 1.2 10^3/uL (1.5-4.5); MONO # 0.4 10^3/uL (0.0-0.8); MONO % 6.3 % (0.0-5.0); NEUTROPHILS # 4.1 10^3/uL (1.8-7.7)
[2018-12-03 15:53] LABS: ALT/SGPT 33 U/L (12-78); BILIRUBIN,TOTAL 0.2 MG/DL (0.2-1.0); BLOOD UREA NITROGEN 7 MG/DL (7-18); CALCIUM LEVEL 8.8 MG/DL (8.5-10.1); CARBON DIOXIDE LEVEL 28 MEQ/L (21-32); CHLORIDE LEVEL 103 MEQ/L (98-107); GLOMERULAR FILTRATION RATE > 60.0 (>60); GLUCOSE, FASTING 94 MG/DL (70-100); MAGNESIUM LEVEL 2.1 MG/DL (1.8-2.4); POTASSIUM SERUM 4.3 MEQ/L (3.5-5.1); PREALBUMIN 35.8 MG/DL (20.0-40.0); SODIUM LEVEL 139 MEQ/L (136-145); TOTAL PROTEIN 6.3 GM/DL (6.4-8.2); TRIGLYCERIDES LEVEL 132 MG/DL (<150)
== END ==
LOC: M LAB REF 15:29
PROVIDERS: ATTEND Internal Medicine Gastroenterology
DX: E43 Unspecified severe protein-calorie malnutrition (principal); B96.5 Pseudomonas (aeruginosa) (mallei) (pseudomallei) as the cause of diseases classified elsewhere; K90.49 Malabsorption due to intolerance, not elsewhere classified; K31.84 Gastroparesis; K94.22 Gastrostomy infection; K27.7 Chronic peptic ulcer, site unspecified, without hemorrhage or perforation; K92.2 Gastrointestinal hemorrhage, unspecified; T80.212A Local infection due to central venous catheter, initial encounter; B95.62 Methicillin resistant Staphylococcus aureus infection as the cause of diseases classified elsewhere

== ENCOUNTER 2018-12-10 13:24 | Emergency (ER) | payer BC, OTHER ==
[~2018-12-10] VITALS: Ht 170.2 cm; Wt 63.6 kg
[2018-12-10] MEDS ORDERED: ZOLP12.515 (13:36)
[2018-12-10 14:30] LABS: HEMATOCRIT 31.7 % (36.0-47.0); HEMOGLOBIN 10.1 g/dl (12.0-15.5); MEAN CORPUSCULAR HEMOGLOBIN 27.9 pg (27.0-33.0); MEAN CORPUSCULAR HGB CONC 31.9 g/dl (32.0-36.5); MEAN CORPUSCULAR VOLUME 87.6 fl (80.0-96.0); PLATELET COUNT, AUTOMATED 392 10^3/uL (150-450); RED BLOOD COUNT 3.62 10^6/uL (4.00-5.40); WHITE BLOOD COUNT 5.7 10^3/uL (4.0-10.0)
[2018-12-10 14:47] LABS: BLOOD UREA NITROGEN 8 MG/DL (7-18); CARBON DIOXIDE LEVEL 29 MEQ/L (21-32); CHLORIDE LEVEL 105 MEQ/L (98-107); CREATININE FOR GFR 0.74 MG/DL (0.55-1.30); GLOMERULAR FILTRATION RATE > 60.0 (>60); GLUCOSE, FASTING 126 MG/DL (70-100); SODIUM LEVEL 139 MEQ/L (136-145)
[2018-12-10] MEDS ORDERED: METOCLOPRAMIDE INJ 10MG/2ML VIAL (J2765) IV ONE (15:00)
[2018-12-10 15:38] VITALS: BP 110/56
== END 2018-12-10 16:10 | disposition home or self-care (01) ==
LOC: M ED 13:24
DX: B34.9 Viral infection, unspecified (principal); Z87.19 Personal history of other diseases of the digestive system; Z98.84 Bariatric surgery status; Z79.899 Other long term (current) drug therapy
CPT/HCPCS: 80048; 85027; 96374; 99283; J2765

== ENCOUNTER → 2018-12-11 | Outpatient (REF) | payer BC, OTHER ==
[~2018-12-11] MED LIST changes: +ZOLP12.515
[2018-12-11 13:42] LABS: BASO % 0.9 % (0.0-1.0); EOS # 0.2 10^3/uL (0.0-0.50); EOS % 3.3 % (0.0-3.0); HEMATOCRIT 28.9 % (36.0-47.0); HEMOGLOBIN 9.4 g/dl (12.0-15.5); LYMPH # 1.3 10^3/uL (1.5-4.5); LYMPH % 27.4 % (24.0-44.0); MEAN CORPUSCULAR HEMOGLOBIN 27.6 pg (27.0-33.0); MEAN CORPUSCULAR HGB CONC 32.5 g/dl (32.0-36.5); MONO # 0.4 10^3/uL (0.0-0.8); MONO % 7.7 % (0.0-5.0); NEUTROPHILS # 2.8 10^3/uL (1.8-7.7); NEUTROPHILS % 60.7 % (36.0-66.0); PLATELET COUNT, AUTOMATED 390 10^3/uL (150-450); WHITE BLOOD COUNT 4.6 10^3/uL (4.0-10.0)
[2018-12-11 14:13] LABS: ALBUMIN 3.2 GM/DL (3.2-5.2); ALT/SGPT 24 U/L (12-78); BILIRUBIN,TOTAL 1.1 MG/DL (0.2-1.0); BLOOD UREA NITROGEN 7 MG/DL (7-18); CALCIUM LEVEL 7.3 MG/DL (8.5-10.1); CARBON DIOXIDE LEVEL 26 MEQ/L (21-32); CHLORIDE LEVEL 117 MEQ/L (98-107); CREATININE FOR GFR 0.54 MG/DL (0.55-1.30); GLOMERULAR FILTRATION RATE > 60.0 (>60); GLUCOSE, FASTING 122 MG/DL (70-100); MAGNESIUM LEVEL 1.7 MG/DL (1.8-2.4); PHOSPHORUS LEVEL 2.9 MG/DL (2.5-4.9); POTASSIUM SERUM 3.3 MEQ/L (3.5-5.1); SODIUM LEVEL 148 MEQ/L (136-145); TOTAL PROTEIN 5.7 GM/DL (6.4-8.2)
== END ==
LOC: M LAB 13:09
PROVIDERS: ATTEND Internal Medicine Gastroenterology
DX: K31.84 Gastroparesis (principal)

== ENCOUNTER → 2018-12-12 | Outpatient (REF) | payer OTHER | LOC: M SFHCPLAZ 10:09 | PROVIDERS: ATTEND Nurse Practitioner Family | DX: R50.9 Fever, unspecified (principal) ==

== ENCOUNTER → 2018-12-16 | Outpatient (REF) | payer OTHER ==
[2018-12-16 15:49] LABS: BASO % 0.4 % (0.0-1.0); EOS # 0.3 10^3/uL (0.0-0.50); EOS % 4.3 % (0.0-3.0); HEMATOCRIT 27.1 % (36.0-47.0); HEMOGLOBIN 8.6 g/dl (12.0-15.5); LYMPH # 1.6 10^3/uL (1.5-4.5); LYMPH % 22.1 % (24.0-44.0); MEAN CORPUSCULAR HEMOGLOBIN 27.4 pg (27.0-33.0); MEAN CORPUSCULAR HGB CONC 31.7 g/dl (32.0-36.5); MEAN CORPUSCULAR VOLUME 86.3 fl (80.0-96.0); MONO # 0.5 10^3/uL (0.0-0.8); MONO % 7.2 % (0.0-5.0); NEUTROPHILS # 4.7 10^3/uL (1.8-7.7); NEUTROPHILS % 65.7 % (36.0-66.0); PLATELET COUNT, AUTOMATED 299 10^3/uL (150-450); RED BLOOD COUNT 3.14 10^6/uL (4.00-5.40); WHITE BLOOD COUNT 7.2 10^3/uL (4.0-10.0)
[2018-12-16 16:20] LABS: ALBUMIN 3.6 GM/DL (3.2-5.2); ALT/SGPT 20 U/L (12-78); BILIRUBIN,TOTAL 0.6 MG/DL (0.2-1.0); BLOOD UREA NITROGEN 6 MG/DL (7-18); CARBON DIOXIDE LEVEL 28 MEQ/L (21-32); CHLORIDE LEVEL 107 MEQ/L (98-107); CREATININE FOR GFR 0.84 MG/DL (0.55-1.30); GLOMERULAR FILTRATION RATE > 60.0 (>60); GLUCOSE, FASTING 102 MG/DL (70-100); MAGNESIUM LEVEL 2.1 MG/DL (1.8-2.4); PHOSPHORUS LEVEL 4.9 MG/DL (2.5-4.9); POTASSIUM SERUM 3.6 MEQ/L (3.5-5.1); SODIUM LEVEL 143 MEQ/L (136-145); TOTAL PROTEIN 5.9 GM/DL (6.4-8.2)
== END ==
LOC: M LAB REF 15:35
PROVIDERS: ATTEND Internal Medicine Gastroenterology
DX: K31.84 Gastroparesis (principal)

== ENCOUNTER → 2018-12-24 | Outpatient (REF) | payer OTHER ==
[2018-12-24 17:22] LABS: BASO % 0.4 % (0.0-1.0); EOS # 0.2 10^3/uL (0.0-0.50); EOS % 3.9 % (0.0-3.0); HEMATOCRIT 27.1 % (36.0-47.0); HEMOGLOBIN 8.6 g/dl (12.0-15.5); LYMPH % 20.4 % (24.0-44.0); MEAN CORPUSCULAR HEMOGLOBIN 26.1 pg (27.0-33.0); MEAN CORPUSCULAR HGB CONC 31.7 g/dl (32.0-36.5); MEAN CORPUSCULAR VOLUME 82.1 fl (80.0-96.0); MONO # 0.3 10^3/uL (0.0-0.8); MONO % 6.9 % (0.0-5.0); NEUTROPHILS # 3.2 10^3/uL (1.8-7.7); NEUTROPHILS % 68.2 % (36.0-66.0); PLATELET COUNT, AUTOMATED 314 10^3/uL (150-450); WHITE BLOOD COUNT 4.7 10^3/uL (4.0-10.0)
[2018-12-24 17:51] LABS: ALBUMIN 3.5 GM/DL (3.2-5.2); ALT/SGPT 551 U/L (12-78); BILIRUBIN,TOTAL 0.9 MG/DL (0.2-1.0); BLOOD UREA NITROGEN 6 MG/DL (7-18); CARBON DIOXIDE LEVEL 26 MEQ/L (21-32); CHLORIDE LEVEL 111 MEQ/L (98-107); CREATININE FOR GFR 0.61 MG/DL (0.55-1.30); GLOMERULAR FILTRATION RATE > 60.0 (>60); GLUCOSE, FASTING 109 MG/DL (70-100); MAGNESIUM LEVEL 2.1 MG/DL (1.8-2.4); PHOSPHORUS LEVEL 2.4 MG/DL (2.5-4.9); POTASSIUM SERUM 3.5 MEQ/L (3.5-5.1); SODIUM LEVEL 143 MEQ/L (136-145); TOTAL PROTEIN 6.1 GM/DL (6.4-8.2)
== END ==
LOC: M LABDRAWC 16:25 → M LAB REF 16:25
PROVIDERS: ATTEND Internal Medicine Gastroenterology
DX: K31.84 Gastroparesis (principal)

== ENCOUNTER → 2018-12-29 | Outpatient (REF) | payer OTHER ==
[2018-12-29 12:33] LABS: BASO % 0.6 % (0.0-1.0); EOS # 0.1 10^3/uL (0.0-0.50); EOS % 2.9 % (0.0-3.0); HEMATOCRIT 28.7 % (36.0-47.0); LYMPH # 1.1 10^3/uL (1.5-4.5); LYMPH % 23.2 % (24.0-44.0); MEAN CORPUSCULAR HEMOGLOBIN 26.5 pg (27.0-33.0); MEAN CORPUSCULAR HGB CONC 31.4 g/dl (32.0-36.5); MEAN CORPUSCULAR VOLUME 84.4 fl (80.0-96.0); MONO # 0.3 10^3/uL (0.0-0.8); MONO % 7.2 % (0.0-5.0); NEUTROPHILS # 3.1 10^3/uL (1.8-7.7); NEUTROPHILS % 65.7 % (36.0-66.0); PLATELET COUNT, AUTOMATED 337 10^3/uL (150-450); WHITE BLOOD COUNT 4.8 10^3/uL (4.0-10.0)
[2018-12-29 13:32] LABS: ALBUMIN 3.6 GM/DL (3.2-5.2); ALT/SGPT 148 U/L (12-78); BILIRUBIN,TOTAL 0.5 MG/DL (0.2-1.0); BLOOD UREA NITROGEN 6 MG/DL (7-18); CALCIUM LEVEL 8.3 MG/DL (8.5-10.1); CARBON DIOXIDE LEVEL 26 MEQ/L (21-32); CHLORIDE LEVEL 110 MEQ/L (98-107); CREATININE FOR GFR 0.66 MG/DL (0.55-1.30); GLOMERULAR FILTRATION RATE > 60.0 (>60); GLUCOSE, FASTING 135 MG/DL (70-100); MAGNESIUM LEVEL 2.3 MG/DL (1.8-2.4); PHOSPHORUS LEVEL 2.8 MG/DL (2.5-4.9); POTASSIUM SERUM 3.7 MEQ/L (3.5-5.1); SODIUM LEVEL 145 MEQ/L (136-145); TOTAL PROTEIN 6.2 GM/DL (6.4-8.2)
== END ==
LOC: M LAB REF 11:40
PROVIDERS: ATTEND Internal Medicine Gastroenterology
DX: K31.84 Gastroparesis (principal)

== ENCOUNTER → 2019-01-04 | Outpatient (REF) | payer OTHER ==
[2019-01-04 15:47] LABS: HEMATOCRIT 27.1 % (36.0-47.0); HEMOGLOBIN 8.4 g/dl (12.0-15.5); MEAN CORPUSCULAR HEMOGLOBIN 25.5 pg (27.0-33.0); MEAN CORPUSCULAR VOLUME 82.1 fl (80.0-96.0); PLATELET COUNT, AUTOMATED 273 10^3/uL (150-450)
[2019-01-04 17:30] LABS: BASOPHILS 1 % (0-4); LYMPHOCYTES 15 % (16-52); MONOCYTES 9 % (0-8); NEUTROPHILS 75 % (35-75)
[2019-01-04 17:31] LABS: MICROCYTOSIS 1+; PLATELET ESTIMATE NORMAL (NORMAL)
== END ==
LOC: M LAB REF 16:05
PROVIDERS: ATTEND Internal Medicine Gastroenterology
DX: K31.84 Gastroparesis (principal)

== ENCOUNTER → 2019-01-05 | Outpatient (REF) | payer OTHER ==
[2019-01-05 15:00] LABS: BASO % 0.5 % (0.0-1.0); EOS # 0.1 10^3/uL (0.0-0.50); EOS % 1.6 % (0.0-3.0); HEMATOCRIT 27.6 % (36.0-47.0); HEMOGLOBIN 8.5 g/dl (12.0-15.5); LYMPH # 0.5 10^3/uL (1.5-4.5); LYMPH % 9.3 % (24.0-44.0); MEAN CORPUSCULAR HEMOGLOBIN 25.5 pg (27.0-33.0); MEAN CORPUSCULAR HGB CONC 30.8 g/dl (32.0-36.5); MEAN CORPUSCULAR VOLUME 82.9 fl (80.0-96.0); MONO # 0.8 10^3/uL (0.0-0.8); MONO % 14.3 % (0.0-5.0); NEUTROPHILS % 74.1 % (36.0-66.0); PLATELET COUNT, AUTOMATED 230 10^3/uL (150-450); RED BLOOD COUNT 3.33 10^6/uL (4.00-5.40); WHITE BLOOD COUNT 5.5 10^3/uL (4.0-10.0)
== END ==
LOC: M LAB REF 14:50
PROVIDERS: ATTEND Physician Assistant
DX: D50.9 Iron deficiency anemia, unspecified (principal)

== ENCOUNTER → 2019-01-05 | Outpatient (REF) | payer OTHER ==
[~2019-01-05] MED LIST changes: +AUGM875T28 PO
[2019-01-05 15:19] LABS: BASO % 0.4 % (0.0-1.0); EOS # 0.1 10^3/uL (0.0-0.50); EOS % 1.3 % (0.0-3.0); HEMATOCRIT 27.3 % (36.0-47.0); HEMOGLOBIN 8.4 g/dl (12.0-15.5); LYMPH # 0.5 10^3/uL (1.5-4.5); LYMPH % 9.5 % (24.0-44.0); MEAN CORPUSCULAR HEMOGLOBIN 25.1 pg (27.0-33.0); MEAN CORPUSCULAR HGB CONC 30.8 g/dl (32.0-36.5); MEAN CORPUSCULAR VOLUME 81.7 fl (80.0-96.0); MONO # 0.8 10^3/uL (0.0-0.8); MONO % 14.8 % (0.0-5.0); NEUTROPHILS % 73.6 % (36.0-66.0); PLATELET COUNT, AUTOMATED 247 10^3/uL (150-450); RED BLOOD COUNT 3.34 10^6/uL (4.00-5.40); WHITE BLOOD COUNT 5.5 10^3/uL (4.0-10.0)
[2019-01-05 15:52] LABS: ALBUMIN 3.3 GM/DL (3.2-5.2); ALT/SGPT 76 U/L (12-78); BILIRUBIN,TOTAL 0.9 MG/DL (0.2-1.0); BLOOD UREA NITROGEN 11 MG/DL (7-18); CARBON DIOXIDE LEVEL 28 MEQ/L (21-32); CHLORIDE LEVEL 108 MEQ/L (98-107); CREATININE FOR GFR 0.77 MG/DL (0.55-1.30); GLOMERULAR FILTRATION RATE > 60.0 (>60); GLUCOSE, FASTING 82 MG/DL (70-100); MAGNESIUM LEVEL 2.2 MG/DL (1.8-2.4); PHOSPHORUS LEVEL 2.3 MG/DL (2.5-4.9); POTASSIUM SERUM 4.3 MEQ/L (3.5-5.1); PREALBUMIN 21.9 MG/DL (20.0-40.0); SODIUM LEVEL 138 MEQ/L (136-145); TOTAL PROTEIN 6.3 GM/DL (6.4-8.2); TRIGLYCERIDES LEVEL 76 MG/DL (<150)
== END ==
LOC: M LAB REF 14:45
PROVIDERS: ATTEND Internal Medicine Gastroenterology
DX: R50.9 Fever, unspecified (principal)

== ENCOUNTER 2019-01-11 11:26 | Inpatient (IN) | payer BC, OTHER ==
[~2019-01-11] VITALS: Ht 175.3 cm; Wt 73.0 kg
[~2019-01-11 11:26] MED LIST changes: -AUGM875T28 PO; -CEFT2ADD INJ; -FERR1TAB8 PO; -HEPAINJ10 IV
[2019-01-11] MEDS ORDERED: PIPERACILLIN/TAZOBACTAM SOD 3.375 GM in D5W MINI-BAG PLUS 50 ML IV ONE (12:15)
[2019-01-11] MEDS ORDERED: NS 1,000 ML IV ONE ×2 (12:15)
[2019-01-11] MEDS ORDERED: NS 1,000 ML IV SCH (12:15)
[2019-01-11] MEDS ORDERED: ZOLP10TA2 PO (12:33)
[2019-01-11] MEDS ORDERED: AUGM875T28 PO (12:33)
[2019-01-11] MEDS ORDERED: FLUO20SO PO (12:33)
[2019-01-11 12:42] LABS: HEMATOCRIT 25.4 % (36.0-47.0); HEMOGLOBIN 7.9 g/dl (12.0-15.5); MEAN CORPUSCULAR HEMOGLOBIN 24.8 pg (27.0-33.0); MEAN CORPUSCULAR HGB CONC 31.1 g/dl (32.0-36.5); MEAN CORPUSCULAR VOLUME 79.6 fl (80.0-96.0); PLATELET COUNT, AUTOMATED 199 10^3/uL (150-450); RED BLOOD COUNT 3.19 10^6/uL (4.00-5.40)
[2019-01-11 12:45] LABS: WHITE BLOOD COUNT 38.1 10^3/uL (4.0-10.0)
[2019-01-11 13:00] LABS: LYMPHOCYTES 2 % (16-52); MONOCYTES 2 % (0-8); NEUTROPHILS 61 % (35-75)
[2019-01-11 13:02] LABS: DOHLE BODIES 2+; PLATELET ESTIMATE NORMAL (NORMAL); TOXIC VACUOLATION 2+
[2019-01-11 13:09] LABS: INFLUENZA A AMPLIFICATION NEGATIVE (NEGATIVE); INFLUENZA B AMPLIFICATION NEGATIVE (NEGATIVE)
[2019-01-11 13:15] LABS: HCG, SERUM QUALITATIVE NEGATIVE (NEGATIVE)
[2019-01-11 13:33] LABS: ALBUMIN 2.5 GM/DL (3.2-5.2); ALT/SGPT 84 U/L (12-78); BILIRUBIN,TOTAL 2.7 MG/DL (0.2-1.0); BLOOD UREA NITROGEN 25 MG/DL (7-18); CALCIUM LEVEL 6.1 MG/DL (8.5-10.1); CARBON DIOXIDE LEVEL 18 MEQ/L (21-32); CHLORIDE LEVEL 108 MEQ/L (98-107); CREATININE FOR GFR 2.44 MG/DL (0.55-1.30); GLOMERULAR FILTRATION RATE 23.5 (>60); GLUCOSE, FASTING 79 MG/DL (70-100); LIPASE 79 U/L (73-393); POTASSIUM SERUM 3.8 MEQ/L (3.5-5.1); SODIUM LEVEL 140 MEQ/L (136-145); TOTAL PROTEIN 5.1 GM/DL (6.4-8.2)
--- NOTE | 2019-01-11 14:37 | REP ---
CHEST, TWO VIEWS: COMPARISON: 10/30/2018. There is no evidence of acute infiltrate. No pleural effusion is seen. The heart is normal in size. The mediastinal silhouette is unremarkable. The visualized osseous structures are intact. A right central venous catheter is again seen with the tip in the superior vena cava. IMPRESSION: No acute pulmonary disease. Electronically Signed by Fredrick Hinton MD 01/11/2019 06:18 P
[2019-01-11] MEDS ORDERED: MORPHINE 4 MG/ML 1ML VIAL/SYRINGE (J2270) IV ONE (17:30)
[2019-01-11] MEDS ORDERED: ONDANSETRON 4MG/2ML VIAL (J2405) IV ONE (17:30)
[2019-01-11] MEDS ORDERED: VANCOMYCIN HCL 1,000 MG, VIAL MATE ADAPTER 1 EACH in D5W 250 ML IV ONE (19:30)
[2019-01-11] MEDS ORDERED: hydrOXYzine 10MG/5ML SYRUP PO PRN (19:30)
[2019-01-11] MEDS: D5W/0.45% SODIUM CHLORIDE 1,000 ML IV SCH (19:56)
[2019-01-11] MEDS: SUCRALFATE SUSP 1GM/10ML UD PO SCH ×2 (19:58→23:22)
[2019-01-11] MEDS: ONDANSETRON 4MG/2ML VIAL (J2405) IV PRN (20:00)
[2019-01-11] MEDS ORDERED: MORPHINE 2 MG/ML 1ML SYRINGE (J2270) As Ordered ONE (20:00)
[2019-01-11] MEDS: MORPHINE 4 MG/ML 1ML VIAL/SYRINGE (J2270) IV PRN ×2 (20:01→23:22)
[2019-01-11 21:25] VITALS: BP 99/55
--- NOTE | 2019-01-11 22:15 | HPE ---
DATE OF ADMISSION: 01/11/2019 CHIEF COMPLAINT: Increased nausea, vomiting, abdominal pain, leukocytosis for which she was told to come to the emergency room from her urgent care. 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 The patient went to urgent care earlier today; at which time, she had a leukocytosis to 44 and was called to immediately go to the emergency room (ER) after she went home. She comes here for further evaluation of the leukocytosis. EMERGENCY ROOM (ER) COURSE: The patient in the emergency room was noted to be septic with leukocytosis, tachycardia and was given a total of 3 liters of IV fluids. She was given a dose of Zosyn. I called Dr. Schultz to evaluate this patient given that she also had significant right lower quadrant pain on exam to evaluate for appendicitis and he saw the patient and did not feel that the source of the problems is her appendix. The CT scan also did not show clear appendicitis, although the appendix is not well visualized and the study was without contrast. The patient is being admitted for further evaluation of her sepsis, leukocytosis and acute kidney injury. PAST MEDICAL HISTORY: As above in history of present illness. PAST SURGICAL HISTORY: The patient had a gastric bypass in 2006. She has had multiple bowel obstructions requiring bowel resection. She also has a history of G tubes that have since been removed for which she instead on total parenteral nutrition (TPN). HOME MEDICATIONS: The patient's home medications are Augmentin 875 mg twice a day for which she takes for a recent tooth infection, morphine 5 mL by mouth every 4 hours for pain, Zofran 8 mg IV every 8 hours, promethazine 25 mg as needed for nausea and vomiting, fluoxetine 20 mg by mouth daily, hydroxyzine 10 mg by mouth every 12 hours as needed for itching, sucralfate 10 mL by mouth every 6 hours, Ambien 10 mg by mouth at bedtime (q.h.s.). ALLERGIES: She is allergic to BUTORPHANOL, LEVOFLOXACIN, NSAIDS, SCOPOLAMINE, SULFA DRUGS, TOMATO, TRAMADOL. FAMILY HISTORY: She has got a mother and brother who has Crohn's disease. SOCIAL HISTORY: She lives with her and has four kids. No significant alcohol, smoking or drugs. PHYSICAL EXAMINATION: On exam, the patient's vital signs, currently she is 82/45, pulse of 91, respiratory rate 14, saturation 100% on room air and she is afebrile to 97. In general, she looks uncomfortable and in pain. HEENT: Oropharynx clear. CARDIOVASCULAR: Regular rate and rhythm, no murmurs or gallops. CHEST: The patient has a total parenteral nutrition (TPN) catheter on her right chest. LUNGS: Clear to auscultation bilaterally. ABDOMEN: She has got significant right-sided tenderness that is most prominent in her right lower quadrant. The abdomen is soft, however, no rebound or guarding. EXTREMITIES: No clubbing, cyanosis, edema. NEURO: She is alert and oriented times three. Follows simple commands. No focal neurologic deficits. SKIN: Intact. PSYCHIATRIC: Mood stable. LABORATORY: Reveals white count of 38, hemoglobin 7.9, platelets of 199. She does have a left shift with 35% bands. Her chemistry shows creatinine of 2.4; and only a few days ago, it was 0.7. Liver function tests also elevated to AST 120, ALT 84, alkaline phosphatase 355. She was flu A and B negative. Her urine shows 32 whites, 2 reds. Her imaging she has CT of the abdomen and pelvis that preliminary shows no CT evidence of appendicitis, but appendix not clearly delineated due to lack of IV and oral contrast. No free air or fluid. No obstruction. Few ill defined nodular densities in the right lung base. The largest is 1.1 cm, likely inflammatory. Consider chest CT to evaluate for other nodules. ASSESSMENT AND PLAN: This is a 38-year-old female with past medical history of malabsorption and gastroparesis since having a bypass surgery in 2008, who is chronic total parenteral nutrition (TPN) for the last year with history of multiple prior bowel obstructions requiring resection, who presents with sepsis. PROBLEMS: 1. Sepsis. The patient does meet systemic inflammatory response syndrome (SIR) criteria with profound leukocytosis with left shift, as well as heart rates above 90s. She has already been aggressively fluid resuscitated with 3 liters in the emergency room (ER). Her blood pressures do run low in the 80s over 40s. Therefore, at this time, I am not going to continue giving her boluses. I am giving her maintenance fluids with D5 half normal saline at 75 mL per hour to maintain the patient's hydration. There are several possible sources of infection including a urinary tract infection (UTI) and she did have positive urinalysis versus a line infection given that she has a total parenteral nutrition (TPN) line. Dr. Schultz from general surgery saw the patient and does not feel that the abdomen is the source of any infection, nor did she had appendicitis. For now, I am giving her vancomycin for gram-positive coverage given that she has a line, as well as Zosyn. These will both be renally dosed. We will continue to follow her blood cultures. I am also checking a set of fungal blood cultures. We will also follow her urine cultures. For now, she is hemodynamically stable, especially considering her blood pressures run low; but I will admit her to the PCU for closer hemodynamic monitoring. 2. Acute kidney injury (MARILUZ). The patient does have an acute kidney injury, which is significant up to a creatinine of 2.4 from 0.7, just a few days ago. This is likely prerenal from dehydration versus possibly from poor perfusion of the kidneys secondary to low blood pressures. She is going to get IV fluids and we will repeat a basic metabolic panel (BMP) tomorrow. I am also checking a renal ultrasound. 3. Abnormal liver function tests. The patient also has abnormal liver function tests with elevated AST, ALT and alkaline phosphatase, which are higher than her usual. This could be secondary to lower blood pressures than what is usual for her. I am also checking an abdominal ultrasound. We will repeat the liver function tests tomorrow. 4. Pain control. I have placed her on IV morphine as needed for abdominal pain control. She is also on Zofran as needed for nausea. 6. Gastrointestinal (GI)/fluid electrolyte nutrition. The patient normally only drinks liquids and takes total parenteral nutrition (TPN) over 14 hours. At this time, I am just going to make her nothing by mouth for some bowel rest. I am giving her D5 half normal saline at 75 mL per hour. I have also put in a dietary consult to help put in her total parenteral nutrition (TPN) orders, starting tomorrow. 5. Deep vein thrombosis (DVT) prophylaxis on subcutaneous heparin.
[2019-01-11] MEDS: PIPERACILLIN/TAZOBACTAM SOD 3.375 GM in D5W MINI-BAG PLUS 50 ML IV SCH (22:26)
[2019-01-11] MEDS: zolPIDEM TARTRATE 5 MG TAB PO SCH (22:26)
[2019-01-11] MEDS: HEPARIN SOD (PORCINE) 5000 UNITS/ML VIAL SC SCH (22:28)
[2019-01-11] MEDS ORDERED: SODIUM CHLORIDE 0.9% INJ 10 ML SYR IV PRN (23:00)
[2019-01-12] VITALS (7 sets, daily range): BP systolic 92–108; BP diastolic 48–61
--- NOTE | 2019-01-12 01:02 | PHACANCOPD ---
PHARMACY VANCOMYCIN DOSING Pt Demographics Demographics Patient Age:38 , Weight:88.640 , Gender: female Adjusted Body Weight Date: 01/12/19, Adjusted Body Weight: [75.2] Kg Vancomycin Vancomycin indication: SEPSIS Vancomycin Target Ranges: 10-20 mcg/ml Vancomycin Load Y/N: No Load Dose Date Time Vancomycin Load Dose: Date: Time: Vancomycin Dose Date: 01/12/19. Current Vancomycin Dose: [1 GM Q24] Intermittent Dosing?: No Labs Labs Laboratory Tests 01/11/19 12:21 Red Blood Count 3.19 L, Mean Corpuscular Volume 79.6 L, Mean Corpuscular Hemoglobin 24.8 L, Mean Corpuscular Hemoglobin Concent 31.1 L, Red Cell Distribution Width 15.3 H, Neutrophils # (Auto) Micro Microbiology 01/11/19 Blood Fungal Culture, Received Pending 01/11/19 Blood Culture - Preliminary, Resulted 01/11/19 Respiratory Virus Panel (PCR) (ZHANE) - Final, Complete 01/11/19 Urine Culture, Received Pending Creatinine Clearance Date:01/12/19. Creatinine Clearance: [36.7].CALCULATED Pending Labs Vancomycin trough due 01/13@1300 Assessment and Plan Maintaining Current Dose?: Yes Reason for dose change: No Dose Change Pharmacist Note Pharmacist Note Date: 01/12/19. Pharmacist note:35 YOF,SCR 2.44 CRCL 36.7(calculated),Receiving TPN for >1year presented w/possible line infection/sepsis..Treating w/Pip/Tazo 3.375 [id number] anv Vancomycin per Pharmacy consult. Vancomycin 1 gram in ED 01/11@2000. Will begin 1 gram IV [id number] 01/12@1400.First trough is scheduled for 01/13@1300-will continue to follow and adjust Vancomycin as needed. [facility] Jan 12, 2019 01:02
[2019-01-12] MEDS: ONDANSETRON 4MG/2ML VIAL (J2405) IV PRN ×3 (02:40→15:40)
[2019-01-12] MEDS: PIPERACILLIN/TAZOBACTAM SOD 3.375 GM in D5W MINI-BAG PLUS 50 ML IV SCH ×4 (02:41→20:13)
[2019-01-12] MEDS: MORPHINE 4 MG/ML 1ML VIAL/SYRINGE (J2270) IV PRN ×6 (02:41→20:22)
[2019-01-12 05:09] LABS: HEMATOCRIT 23.3 % (36.0-47.0); HEMOGLOBIN 7.2 g/dl (12.0-15.5); MEAN CORPUSCULAR HEMOGLOBIN 25.3 pg (27.0-33.0); MEAN CORPUSCULAR HGB CONC 30.9 g/dl (32.0-36.5); MEAN CORPUSCULAR VOLUME 81.8 fl (80.0-96.0); PLATELET COUNT, AUTOMATED 167 10^3/uL (150-450); RED BLOOD COUNT 2.85 10^6/uL (4.00-5.40); WHITE BLOOD COUNT 20.1 10^3/uL (4.0-10.0)
[2019-01-12 05:36] LABS: ALBUMIN 2.2 GM/DL (3.2-5.2); BILIRUBIN,DIRECT 0.7 MG/DL (0.0-0.2); BILIRUBIN,TOTAL 1.1 MG/DL (0.2-1.0); CALCIUM LEVEL 6.8 MG/DL (8.5-10.1); CREATININE FOR GFR 1.6 MG/DL (0.55-1.30); GLOMERULAR FILTRATION RATE 38.2 (>60); POTASSIUM SERUM 3.4 MEQ/L (3.5-5.1); TOTAL PROTEIN 5.1 GM/DL (6.4-8.2)
[2019-01-12] MEDS: SUCRALFATE SUSP 1GM/10ML UD PO SCH ×3 (06:19→18:00)
--- NOTE | 2019-01-12 07:25 | REP ---
CT ABDOMEN AND PELVIS WITHOUT CONTRAST: CT abdomen and pelvis performed without oral or IV contrast. Sagittal and coronal reconstruction images are performed. Comparison is made with multiple prior exams, most recent of which is 08/23/2018. In the visualized lung bases, there are new ill-defined nodular opacities. Approximately three are seen in the posterior right lung base, largest measuring 1.1 cm in maximum diameter. A similar ill-defined nodular density is seen in the left costophrenic angle measuring 1 cm in diameter. The liver is grossly unremarkable. The patient has had a prior cholecystectomy. The spleen, adrenals, pancreas and kidneys are grossly unremarkable. No renal or ureteral calculus is seen and there is no evidence of hydroureteronephrosis. The patient has had prior gastric surgery. There is no abdominal aortic aneurysm. I see no evidence of adenopathy, free air or free fluid. I see no evidence of bowel wall thickening. There is no evidence of bowel obstruction. Surgical sutures are also seen in the left pelvis along bowel loops. The patient has had a hysterectomy. There is no evidence of a pelvic mass. The urinary bladder is very mildly distended and is not optimally evaluated with no gross abnormality is seen. There is no bladder calculus seen. The appendix is not clearly delineated due to the lack of IV and oral contrast. However, there are no signs of acute appendicitis. There are degenerative changes of the spine. Metallic rods and screws are seen posteriorly bridging L4-S1. IMPRESSION: Approximately three ill-defined nodular densities in the visualized right lung base and one on the visualized left lung base. These are new and may be inflammatory in nature. Consider CT of the chest to evaluate for other nodules or other lung abnormalities. No free air or free fluid and no evidence of bowel obstruction. No definite signs of appendicitis, although the appendix is not clearly delineated due to lack of IV and oral contrast. No renal or ureteral calculus and no hydroureteronephrosis. Electronically Signed by Fredrick Hinton MD 01/12/2019 09:38 A
[2019-01-12] MEDS: SODIUM CHLORIDE 0.9% INJ 10 ML SYR IV SCH (09:00)
--- NOTE | 2019-01-12 09:23 | REP ---
ULTRASOUND ABDOMEN: Real-time sonographic evaluation of the abdomen was performed. Patient has had a prior cholecystectomy. Common bile duct measures 12 mm. The liver demonstrates mild diffuse increased echotexture with no gross mass. Pancreas is grossly unremarkable. Spleen is slightly enlarged meauring 13.0 x 7.8 x 12.2 cm. Accessory spleen is seen measuring 1.5 x 1.7 x 1.6 cm. The kidneys are normal in size and echotexture. Right kidney measuring 11.0 x 5.8 x 4.5 cm and left kidney 10.5 x 4.8 x 4.3 cm. There is no renal mass, hydronephrosis, or nephrolithiasis. Abdominal aorta is normal in caliber with no aneurysm, proximally measuring 1.9 cm in distally 1.6 cm in AP dimension. There is no ascites. IMPRESSION: Status-post cholecystectomy with common bile duct measurement 12 mm. No liver or pancreatic mass is seen. Mildly increase echotexture of the liver may represent diffuse fibrofatty infiltration Mild splenomegaly. Electronically Signed by Fredrick Hinton MD 01/12/2019 09:41 A
[2019-01-12] MEDS: FLUoxetine 20 MG CAP PO SCH (09:42)
[2019-01-12] MEDS: HEPARIN SOD (PORCINE) 5000 UNITS/ML VIAL SC SCH ×2 (09:42→20:13)
[2019-01-12] MEDS: VANCOMYCIN HCL 1,000 MG, VIAL MATE ADAPTER 1 EACH in D5W 250 ML IV SCH ×2 (10:59→22:00)
--- NOTE | 2019-01-12 12:31 | CR ---
DATE OF CONSULTATION: 01/12/2019 REASON FOR CONSULTATION: Abdominal pain and elevated white blood cell count. HISTORY OF PRESENT ILLNESS: The patient is a 38-year-old woman with a fairly complex medical history. She had undergone a Nadege-en-Y gastric bypass back in approximately 2007 in [place]. She apparently has had issues trying to tolerate oral intake. She carries a diagnosis of gastroparesis, though I do know where this diagnosis was made or what diagnostic workup was carried out. She has been receiving total parenteral nutrition through a Galicia catheter implanted in the right subclavian area. She had previously had an Exnaso-C-Gliv on the left. She has a history of some chronic pain generally in the upper abdomen. She reports that about a week ago she developed a fever. A day or two later she noted the onset of some chills. These have continued through the past week with increasing symptoms with also sense of weakness and poor appetite. She apparently was [facility] and then referred over to the emergency department for evaluation. She was found to have a marked elevation of her white blood cell count with also elevations of her renal functions. She complained of some discomfort in the right lower quadrant. She underwent imaging with a chest x-ray and a CT scan of the abdomen and pelvis. This was done without contrast. The radiologist noted that the appendix was not seen but that there was not any evidence for an inflammatory mass. The hospitalist, Dr. Cohen, is planning to admit the patient for management of her medical issues, but has requested my consultation because of her complaint of right lower quadrant discomfort and the noncontrast CT scan. ALLERGIES: Reported to BUTORPHANOL, LEVOFLOXACIN, NONSTEROIDAL ANTI-INFLAMMATORY DRUGS, SCOPOLAMINE, SULFA DRUGS, TOMATOES, TRAMADOL. MEDICATIONS At time of presentation include: - Augmentin 875 mg p.o. twice daily - fluoxetine 20 mg p.o. daily - hydroxyzine 5 mL q.12 h p.r.n. for itching - morphine 10 mg p.o. q.4 h p.r.n. for pain - Zofran 8 mg injected q.8 h - promethazine 25 mg per rectum p.r.n. for nausea or vomiting - Carafate 10 mL or 1 gram p.o. q.6 h - zolpidem 10 mg p.o. q.h.s. MEDICAL HISTORY: Significant for depression and anxiety, history of methicillin-resistant Staphylococcus aureus, chronic back pain, gastric bypass and her inability to take adequate oral intake. SOCIAL HISTORY: Significant for tonsillectomy. Her gastric bypass was in September 2009. She has undergone an endometrial ablation followed by hysterectomy, though she reports that her ovaries are in place. She had an Ryvpxd-X-Pqnm placed several years ago. She had a Galicia catheter placed in May 2014. She previously had a gastrojejunal tube. She had a wound on her leg drained in 2016. She did have back surgery with a decompression and fusion in about 2012. SOCIAL HISTORY: The patient is a nonsmoker. She drinks no alcohol. REVIEW OF SYSTEMS: The patient denies chest pain or palpitations. She denies any cough or wheezing. She has had no dysuria or hematuria. She does report that she can eat small amounts of food depending on the particular food and quantity. It is usually small amounts. She is on total parenteral nutrition, I believe she has 14 hours per day. She denies any significant bone or joint pains currently other than some chronic back pain and chronic left upper quadrant pain. FAMILY HISTORY: Really unhelpful and noncontributory. PHYSICAL EXAMINATION: Reveals an alert woman sitting partially reclined on a stretcher in the emergency department. Her vital signs at the time of her exam reveals a pulse of approximately 90, respirations of 16, blood pressure 76/51, pulse oximetry of 100% on room air. The patient's skin is warm and dry. Sclerae are anicteric. Mucous membranes are tacky. The neck is supple without mass. She has an old Wjuqrj-Y-Ctuv scar in the left upper quadrant. She has a Galicia type catheter in the right infraclavicular fossa. The site is dressed appropriately and appears clean. There is no redness along the tract of the catheter. Heart exam shows a regular rate and rhythm. The lungs are clear bilaterally. Abdominal exam shows some abdominal scarring consistent with her prior surgery. She does have some bowel sounds present. There is no evident hernia. She has some mild direct tenderness in the lateral right midabdomen. This was apparent primarily with fairly deep palpation. No masses appreciated. Lower extremities show no peripheral edema and she has palpable pedal pulses and palpable radial pulses bilaterally. Her laboratory studies show a white blood cell count of 38,000 with a differential showing 61% neutrophils, 35% bands and 2% lymphocytes. Her hemoglobin is 8 with a hematocrit of 25. Her platelet count is 199,000. Chemistry profile shows a sodium of 140, potassium 3.8, chloride 108, CO2 of 18, BUN of 25, creatinine 2.4 and glucose of 79. The patient's liver function tests were all mildly elevated with total bilirubin of 2.7, direct of 2.0, AST 120, ALT 84 and alkaline phosphatase of 355. Lipase is normal. HCG is negative. Total protein is 5.1 with an albumin of 2.5. Her urinalysis shows a negative leukocyte esterase. She has 32 white cells and 2 red cells per high-power field with 1+ bacteria. Serology testing for influenza A and B is negative. I reviewed her chest x-ray and her CT scan of the abdomen and pelvis. The CT images show that her gallbladder is surgically absent, as is the uterus. She has an intestinal anastomosis noted lower and the mid abdomen, as well as surgical alvarado in the left upper quadrant with findings consistent with a Nadege-en-Y gastric bypass. There is not an evident ventral hernia. There is no free air and no free fluid. The appendix is not seen, although there is no acute inflammatory change noted within the abdomen. IMPRESSION: 1. Sepsis of unclear etiology. 2. Acute kidney injury. 3. Status post Nadege-en-Y gastric bypass. 4. Inability to tolerate adequate oral intake. 5. Chronic anemia. 6. Chronic back pain. RECOMMENDATIONS: At this point, the patient does not, based on review of her CT scan and her physical exam, seem to have findings suggestive of appendicitis or any other acute surgical emergency within the abdomen. She certainly has a week-long history of fevers and chills with a markedly elevated white count with a left shift. I think there are probably several potential sources for her infection, but certainly her indwelling catheter is I think the most likely source for infection. She certainly could have a urinary tract infection, though her white blood cell count in the urine is not strikingly elevated and she has not had symptoms. I think her liver function test elevations are probably secondary to sepsis rather than being indicative of an underlying liver or bile duct issue. I would recommend cultures and antibiotics and close observation. She certainly does not appear to have any indication for urgent surgery at this time.
[2019-01-12] MEDS: D5W/0.45% SODIUM CHLORIDE 1,000 ML IV SCH ×2 (13:51→20:13)
--- NOTE | 2019-01-12 15:33 | PHACANCOPD ---
PHARMACY VANCOMYCIN DOSING Pt Demographics Demographics Patient Age:38 , Weight:70.700 , Gender: female Adjusted Body Weight Date: 01/12/19, Adjusted Body Weight: [75.2] Kg Vancomycin Vancomycin indication: SEPSIS Vancomycin Target Ranges: 10-20 mcg/ml Vancomycin Load Y/N: No Load Dose Date Time Vancomycin Load Dose: Date: Time: Vancomycin Dose Date: 01/12/19. Current Vancomycin Dose: [1 GM Q24] Intermittent Dosing?: No Labs Micro Microbiology 01/12/19 Blood Culture, Received Pending 01/11/19 Blood Fungal Culture, Received Pending 01/11/19 Blood Culture - Preliminary, Resulted 01/11/19 Respiratory Virus Panel (PCR) ([facility]) - Final, Complete 01/11/19 Urine Culture - Final, Complete Creatinine Clearance Date:01/12/19. Creatinine Clearance: [36.7].CALCULATED Pending Labs Vancomycin trough due 01/13@1300 Assessment and Plan Maintaining Current Dose?: No Reason for dose change: Other Pharmacist Note Pharmacist Note 01/12/19: Scr has improved from 2.44 yesterday to 1.6 today. As a result, we will change the patient's vancomycin regimen from 1g IV Q24H to 1g IV Q12H to accom modate for the apparent improvement in renal function, and reschedule the trough level to be drawn tomorrow @0900 - prior to the 4th dose. We will continue to monitor and make further dose adjustments accordingly. Date: 01/12/19. Pharmacist note:35 YOF,SCR 2.44 CRCL 36.7(calculated),Receiving TPN for >1year presented w/possible line infection/sepsis..Treating w/Pip/Tazo 3.375 [id number] anv Vancomycin per Pharmacy consult. Vancomycin 1 gram in ED 01/11@2000. Will begin 1 gram IV [id number] 01/12@1400.First trough is scheduled for 01/13@1300-will continue to follow and adjust Vancomycin as needed. [facility] Jan 12, 2019 15:33
[2019-01-12 15:56] LABS: PERCENT SATURATION 3.9 % (13.2-45.0)
--- NOTE | 2019-01-12 17:33 | REP ---
CT chest without contrast: History: Ill-defined nodular densities. Comparison chest x-ray: January 11, 2019. Comparison CT images from the abdomen CT study dated January 11, 2019. CT findings: CT images confirm the presence of multiple bilateral ill-defined nodules of varying in size up to 11 mm. There are two small sub-centimeter nodules which are cavitary. The previously noted 8 mm nodule in the left upper lobe on June 10, 2018 has resolved. There is a gunjan fissural nodule in the minor fissure on the left which is unchanged. The other nodules visible today are new. Some of the previously noted cavitary nodules in the right lower lobe have improved or resolved. There is a central venous line with its tip in the superior vena cava. No pleural or pericardial effusion is seen. The patient is status post gastric bypass and cholecystectomy. No adrenal lesion is seen. No pleural or pericardial effusion is seen. No obvious adenopathy. Scattered normal-sized mediastinal lymph nodes are noted. Impression: Multiple bilateral ill-defined nodules several of which are cavitary and most of which are new when compared with the June 10, 2018 prior study. Several of the nodules identified on that prior study have resolved. Waxing and waning an inflammatory disease. Septic emboli versus fungal infection versus chronic granulomatous disease. Electronically Signed by Adrian Valdez MD 01/13/2019 11:28 A
--- NOTE | 2019-01-12 19:56 | IPN ---
DATE: 01/12/2019 HISTORY: The patient was admitted by medicine yesterday for management of apparent sepsis with a markedly elevated white blood cell count and acute kidney injury. She reports that she is feeling more human today. She looks more alert and comfortable. Vital signs: Show that she has been afebrile since admission. Her pulse is approximately 100 today. Blood pressure is in the low 100s systolically. Her room air oxygen saturation is normal. Intake and output shows that she had 3600 in yesterday. She had another 2100 in so far today and her urine output today has been 2400 mL. PHYSICAL EXAMINATION: The patient is lying quietly in her hospital bed. She is alert and oriented. Abdomen appears nondistended. LABORATORY STUDIES: Her white count today was 20,000 with a hemoglobin of 7, hematocrit of 23 and platelet count of 167,000. Her chemistry profile shows improvement in all of her liver function tests and renal function. BUN is down to 21 with a creatinine of 1.6. Her electrolytes show a sodium of 146, potassium 3.4, chloride 118, and a CO2 of 20. Preliminary blood culture from 01/11/2019 is reported as gram-negative rods. Her urine culture from yesterday is no growth. IMPRESSION: The patient appears to be improving. Her white count is down to 20. A preliminary result of a blood culture suggests gram-negative rods. RECOMMENDATIONS: At this point, there is no indication for surgical intervention. Continued medical therapy should be pursued. I do wonder if there is not something that could be done to improve her potential for enteral feeding. Because she is seeing a surgeon and gastroenterology in [place], I will not recommend anything specifically to her, but it would seem that if enteral access could be obtained for feedings that this would certainly be preferable to total parenteral nutrition.
[2019-01-12] MEDS: zolPIDEM TARTRATE 5 MG TAB PO SCH (20:13)
--- NOTE | 2019-01-12 20:48 | IPN ---
DATE: 01/12/2019 SUBJECTIVE: This morning the patient tells me that she is still having abdominal pain but it is not as bad. She tells me she is no longer having fevers, and she does feel somewhat better than she did yesterday. She tells me that she is no longer vomiting. OBJECTIVE: VITAL SIGNS: Temperature 98, pulse 100, respiratory rate 18, blood pressure 108/56, oxygen saturation 96% on room air. GENERAL: She is a pale, middle-aged female, appears older than stated age, lying in bed on her left side. She does not appear to be in any acute distress. HEENT: She has bitemporal wasting. Moist mucous membranes. No elevation of central venous pressure (CVP). CARDIOVASCULAR EXAM: S1, S2, regular. RESPIRATORY EXAM: Fairly clear. ABDOMINAL EXAM: Bowel sounds present. The abdomen is quite soft throughout. There is tenderness to deep palpation in the right lower quadrant. LABORATORY STUDIES: WBC 20.1 down from 38.1, hemoglobin 7.2, platelet count 167, Chemistry panel: Sodium 146, potassium 3.4, chloride 118, bicarbonate 20, BUN 21, creatinine 1.6 down from 2.4, lactic acid 1.2, lipase was 79. test was negative. Influenza swab was negative. Microbiology: Urine culture is negative. Blood cultures are currently pending. Respiratory PCR panel is negative. IMAGING: The patient did have an ultrasound of her abdomen. She is status post cholecystectomy with a common bile duct measurement of 12 mm. No liver or pancreatic mass seen. She did have a CT scan of the abdomen and pelvis, which revealed three ill-defined nodular densities in the right lung base, one visualized in the left lung base. They are new and may be inflammatory in nature. It was recommended to consider a CT chest to evaluate for further lung abnormalities. ASSESSMENT AND PLAN: This is a 38-year-old female who presents with sepsis. PROBLEMS: 1. Sepsis. Likely from an abdominal source. The etiology is not immediately clear. She does have significant leukocytosis, bandemia. She was reportedly tachycardic and febrile at home. She has responded to intravenous (IV) fluids, being nothing by mouth and empiric antibiotics. For the time being, will continue on vancomycin and Zosyn and followup her blood cultures. I will order a repeat set today. I will also check a procalcitonin level. She is hungry. There is no evidence of bleeding or obstruction. She tells me she was seen by Dr. Schultz, who did not have any suspicion for an acute appendicitis. I will allow her a clear liquid diet. Cultures have been drawn from line to also assess for fungal cultures. 2. Acute kidney injury. Likely secondary to sepsis presentation and dehydration associated with her vomiting. It does appear to be improving with IV fluids. Will continue to monitor closely. 3. Elevated liver function. Possibly related to her acute infection, but do appear to be improving this morning. Will continue to monitor closely. 4. Anemia. Chronic, although this is low even for her. She is receiving IV fluids, and there is likely a dilutional component as dropped. She is asymptomatic, but at this point, I will send an anemia workup. I will hold off on transfusing her at this time as she does not have any specific symptoms, her young age, and the chronicity of her living near these counts, I will send an anemia workup. 5. Mood disorder. Continue with Prozac. The patient is on Atarax. 6. Insomnia. Continue with Ambien. 7. Deep vein thrombosis (DVT) prophylaxis. The patient is on heparin. DISPOSITION: Pending source, control of her infection, her remaining afebrile, tolerating some by mouth (p.o.). 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
[2019-01-13] VITALS: BP 100/55
[2019-01-13] MEDS: SUCRALFATE SUSP 1GM/10ML UD PO SCH ×5 (00:28→23:53)
[2019-01-13] MEDS: ONDANSETRON 4MG/2ML VIAL (J2405) IV PRN ×3 (00:28→20:10)
[2019-01-13] MEDS: MORPHINE 4 MG/ML 1ML VIAL/SYRINGE (J2270) IV PRN ×6 (00:31→23:53)
[2019-01-13] MEDS: PIPERACILLIN/TAZOBACTAM SOD 3.375 GM in D5W MINI-BAG PLUS 50 ML IV SCH (03:34)
[2019-01-13 04:00] VITALS: BP 97/50
[2019-01-13 06:04] LABS: HEMATOCRIT 24.6 % (36.0-47.0); HEMOGLOBIN 7.5 g/dl (12.0-15.5); MEAN CORPUSCULAR HEMOGLOBIN 24.6 pg (27.0-33.0); MEAN CORPUSCULAR HGB CONC 30.5 g/dl (32.0-36.5); MEAN CORPUSCULAR VOLUME 80.7 fl (80.0-96.0); PLATELET COUNT, AUTOMATED 187 10^3/uL (150-450); RED BLOOD COUNT 3.05 10^6/uL (4.00-5.40); WHITE BLOOD COUNT 12.6 10^3/uL (4.0-10.0)
[2019-01-13 06:30] LABS: ALBUMIN 2.2 GM/DL (3.2-5.2); ALT/SGPT 42 U/L (12-78); BILIRUBIN,TOTAL 0.6 MG/DL (0.2-1.0); BLOOD UREA NITROGEN 8 MG/DL (7-18); CALCIUM LEVEL 7.3 MG/DL (8.5-10.1); CARBON DIOXIDE LEVEL 21 MEQ/L (21-32); CHLORIDE LEVEL 118 MEQ/L (98-107); CREATININE FOR GFR 0.91 MG/DL (0.55-1.30); GLOMERULAR FILTRATION RATE > 60.0 (>60); GLUCOSE, FASTING 109 MG/DL (70-100); POTASSIUM SERUM 3.5 MEQ/L (3.5-5.1); SODIUM LEVEL 148 MEQ/L (136-145); TOTAL PROTEIN 5.2 GM/DL (6.4-8.2)
[2019-01-13 08:00] VITALS: BP 124/68
[2019-01-13] MEDS: FLUoxetine 20 MG CAP PO SCH (08:26)
[2019-01-13] MEDS: cefTRIAXone SOD 2 GM in D5W MINI-BAG PLUS 50 ML IV SCH (08:26)
[2019-01-13] MEDS: SODIUM CHLORIDE 0.9% INJ 10 ML SYR IV SCH (09:00)
[2019-01-13 12:00] VITALS: BP 105/76
[2019-01-13] MEDS: D5W/0.45% SODIUM CHLORIDE 1,000 ML IV SCH (12:54)
[2019-01-13] MEDS: HEPARIN SOD (PORCINE) 5000 UNITS/ML VIAL SC SCH ×2 (12:54→20:10)
[2019-01-13 16:00] VITALS: BP 104/68
[2019-01-13] MEDS: MAGIC MOUTHWASH SUSPENSION BTL SS PRN (16:01)
--- NOTE | 2019-01-13 17:17 | IPNPDOC ---
Text Note Date of Service The patient was seen on 01/13/19. NOTE Subjective: Patient is a 38-year-old female with a PMHx of Gastric bypass with malabsorption (2008), Chronic TPN, Multiple bowel obstructions causing ischemia / resection of bowel, AKBAR who presented to the ER with complaints of nausea, vomiting and abdominal pain. In the emergency room, patient was found to have a significantly elevated white blood cell count and suspicion of acute pancreatitis. Surgery was called on consultation for evaluation. Patient was seen and examined at the bedside. Currently patient notes that she feels weak. She denies chest pain, shortness of breath or palpitations. She denies nausea, vomiting, abdominal pain, constipation, diarrhea or discomfort with urination. Objective: Vitals (See below) General: Lying in bed, no acute distress, comfortable, AAOx3 HEENT: NC, AT CVS: RRR, +S1S2 Lungs: Fair air entry b/l, -w/r/r Abdomen: Soft, ND, NT, + R sided CVA tenderness Extremities: - Edema, - Calf tenderness Assessment and plan: Sepsis - possibly 2/2 intra-abdominal source - possibly 2/2 R sided pyelonephritis, possibly line infection (Port) - Patient had presented with nausea, vomiting, abdominal pain and fevers at home - On arrival to the emergency room, patient had fever and chills - Leukocytosis has been improving - Blood cultures (1 of 1) 01/11: Serratia marcescens; Repeat blood cultures 01/12: No growth at 24 hours; Urine culture 01/11: Negative (Contaminated) - Fungal cultures 01/11: Pending - CT ab/pel 01/11: Approximately three ill-defined nodular densities in the visualized right lung base and one on the visualized left lung base. These are new and may be inflammatory in nature. Consider CT of the chest to evaluate for other nodules or other lung abnormalities. No free air or free fluid and no evidence of bowel obstruction. No definite signs of appendicitis, although the appendix is not clearly delineated due to lack of IV and oral contrast. No renal or ureteral calculus and no hydroureteronephrosis. - CT chest 01/12: Multiple bilateral ill-defined nodules several of which are cavitary and most of which are new when compared with the June 10, 2018 prior study. Several of the nodules identified on that prior study have resolved. Waxing and waning an inflammatory disease. Septic emboli versus fungal infection versus chronic granulomatous disease. - US abdomen 01/12: Status-post cholecystectomy with common bile duct measurement 12 mm. No liver or pancreatic mass is seen. Mildly increase echotexture of the liver may represent diffuse fibrofatty infiltration Mild splenomegaly. - Currently patient was on Zosyn and Vancomycin; will transition to ceftriaxone (Antibiotic day #3) - Possibly will have to consider removing port; echo pending - Will consult infectious disease to determine if removing port will be required Lip lesions - possibly 2/2 HSV, possibly 2/2 CMV - Will send off viral panel - Will consult infectious disease s/p MARILUZ - likely 2/2 sepsis / dehydration - Has improved with IV fluid hydration s/p Elevation of liver enzymes - Has trended back down to normal Microcytic / Normocytic Anemia - likely 2/2 AKBAR - Hemoglobin appears to remain stable - Will start iron supplementation Mood disorder - c/w Fluoxetine and hydroxyzine Insomnia - c/w Ambien 6. Insomnia. Continue with Ambien. GERD - c/w Sucralfate DVT prophylaxis - c/w Heparin VS,Fishbone, I+O VS, Fishbone, I+O Laboratory Tests 01/13/19 05:32 Red Blood Count 3.05 L, Mean Corpuscular Volume 80.7, Mean Corpuscular Hemoglobin 24.6 L, Mean Corpuscular Hemoglobin Concent 30.5 L, Red Cell Distribution Width 15.9 H, Calcium Level 7.3 L, Aspartate Amino Transf (AST/SGOT) 31, Alanine Aminotransferase (ALT/SGPT) 42, Alkaline Phosphatase 243 H, Total Bilirubin 0.6, Total Protein 5.2 L, Albumin 2.2 L Vital Signs Date Time Temp Pulse Resp B/P (MAP) Pulse Ox O2 Delivery O2 Flow Rate FiO2 01/13/19 16:00 98.1 87 18 104/68 (80) 98 01/11/19 20:45 Room Air I&O- Last 24 Hours up to 6 AM 01/13/19 06:00 Intake Total 1810 ml Output Total 2800 ml Balance -990 ml EMANI HINES MD Jan 13, 2019 17:17
[2019-01-13 20:00] VITALS: BP 98/58
[2019-01-13] MEDS: zolPIDEM TARTRATE 5 MG TAB PO SCH (20:09)
[2019-01-13] MEDS: FERROUS SULFATE 325MG TAB PO SCH (20:09)
[2019-01-13] MEDS: valACYclovir HCL 500 MG TAB PO SCH (21:05)
[2019-01-14] VITALS: BP 100/58
[2019-01-14] MEDS: D5W/0.45% SODIUM CHLORIDE 1,000 ML IV SCH (00:34)
[2019-01-14] MEDS: MORPHINE 4 MG/ML 1ML VIAL/SYRINGE (J2270) IV PRN ×4 (03:01→17:31)
[2019-01-14 04:00] VITALS: BP 108/55
[2019-01-14] MEDS: valACYclovir HCL 500 MG TAB PO SCH ×3 (06:28→22:00)
[2019-01-14] MEDS: SUCRALFATE SUSP 1GM/10ML UD PO SCH ×3 (06:28→17:31)
[2019-01-14 07:00] LABS: ALT/SGPT 30 U/L (12-78); BILIRUBIN,TOTAL 0.4 MG/DL (0.2-1.0); BLOOD UREA NITROGEN 4 MG/DL (7-18); CALCIUM LEVEL 7.3 MG/DL (8.5-10.1); CARBON DIOXIDE LEVEL 22 MEQ/L (21-32); CHLORIDE LEVEL 115 MEQ/L (98-107); CREATININE FOR GFR 0.64 MG/DL (0.55-1.30); GLOMERULAR FILTRATION RATE > 60.0 (>60); GLUCOSE, FASTING 94 MG/DL (70-100); MEAN CORPUSCULAR HEMOGLOBIN 24.7 pg (27.0-33.0); MEAN CORPUSCULAR HGB CONC 30.5 g/dl (32.0-36.5); MEAN CORPUSCULAR VOLUME 81.2 fl (80.0-96.0); PLATELET COUNT, AUTOMATED 150 10^3/uL (150-450); POTASSIUM SERUM 3.4 MEQ/L (3.5-5.1); RED BLOOD COUNT 2.71 10^6/uL (4.00-5.40); SODIUM LEVEL 145 MEQ/L (136-145); WHITE BLOOD COUNT 5.4 10^3/uL (4.0-10.0)
[2019-01-14 07:13] LABS: HEMOGLOBIN 6.7 g/dl (12.0-15.5)
[2019-01-14 08:00] VITALS: BP 117/60
[2019-01-14] MEDS: FLUoxetine 20 MG CAP PO SCH (08:17)
[2019-01-14] MEDS: HEPARIN SOD (PORCINE) 5000 UNITS/ML VIAL SC SCH ×2 (08:17→20:04)
[2019-01-14] MEDS: FERROUS SULFATE 325MG TAB PO SCH ×2 (08:17→20:05)
[2019-01-14] MEDS: SODIUM CHLORIDE 0.9% INJ 10 ML SYR IV SCH (08:18)
[2019-01-14] MEDS: cefTRIAXone SOD 2 GM in D5W MINI-BAG PLUS 50 ML IV SCH (08:18)
[2019-01-14] MEDS ORDERED: POTASSIUM CHLORIDE 10 MEQ SR TABLET PO ONE (09:00)
--- NOTE | 2019-01-14 10:24 | CR ---
DATE OF CONSULTATION: 01/13/2019 INFECTIOUS DISEASE CONSULTATION REASON FOR CONSULTATION: Sepsis and blood cultures times one positive for Serratia marcescens. HISTORY OF PRESENT ILLNESS: This is a 38-year-old female with a pertinent past medical history of multiple line infections due to pseudomonas. Last hospitalization in May 2018 showed malabsorption after bypass surgery in 2008, history of multiple bowel obstructions causing ischemia and resection of bowel, who presented to the emergency department on 01/11/2019 morning after having increased nausea, vomiting, abdominal pain over the weekend. The patient states that for the last 1 week she was having low grade fevers and had a high of 103.7 on Saturday morning, where her proceeded to take her to urgent care so she could be evaluated. The patient states that over the weekend she started having increased vomiting, nausea, and diarrhea. She states that the vomiting episodes were bilious, non-bloody. She does have a history of chronic diarrhea, but she states that she had more than normal. They were a little bit looser and they were non-bloody. She does admit to having some generalized abdominal discomfort, which is increased from her baseline, and she does feel generalized malaise. She has noted a decreased appetite since last Saturday. She is currently on chronic total parenteral nutrition (TPN) and has a tunneled catheter on the right chest wall. In the urgent care, it was found that she had an elevated leukocytosis of 40s and was recommended to come to [facility] emergency room for further evaluation. In the emergency room, chest CT did show multiple bilateral ill-defined nodules, several which are cavitary and some are new when compared to 06/10/2018. Several of the nodules identified on the prior study have resolved, waxing and waning inflammatory disease, septic emboli versus fungal infection versus chronic granulomatosis disease. WBC was as high as 38.1, which downtrended to 20.1 and this morning was 12.6. She was started on antibiotics with vancomycin and Zosyn. She had a couple of doses of vancomycin and Zosyn. Her blood culture times one came back positive for Serratia marcescens. She was then started on ceftriaxone this morning. When we saw her on physical examination today, she has completed a total of 3 days of antibiotic therapy. She states today that she is feeling a little better. Her abdominal discomfort has improved. She is still feeling relatively generalized malaise. Her nausea, vomiting, and diarrhea have improved as well. She just has a little bit of nausea, which is coming back stayer to baseline. She denies having any tenderness, discharge or increased erythema at her line on her chest wall. She does admit that she is having some vesicular outbreak around her mouth region that she noticed in the last couple of days. She was wondering if there is any medication that we can give her for this. PAST MEDICAL HISTORY: 1. 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 2. Chronic TPN catheter. 3. History of multiple bowel obstructions causing ischemia and resection of bowel. 4. History of iron deficiency anemia. 5. History of multiple line infections, which grew pseudomonas, multiple hospitalizations. PAST SURGICAL HISTORY: 1. Gastric bypass in 2008. 2. Multiple bowel obstructions with bowel resection. 3. Gastrostomy tube placement and removal with placement of TPN catheter. HOME MEDICATIONS: - Augmentin 875 mg twice a day for a recent tooth infection - morphine 5 mL by mouth every four hours for pain - Zofran 8 mg IV every 8 hours - promethazine 25 mg as needed for nausea and vomiting - fluoxetine 20 mg by mouth daily - hydroxyzine 10 mg by mouth every 12 hours as needed for itching. - Carafate 10 mL by mouth every 6 hours - Ambien 10 mg by mouth at bedtime ALLERGIES: BUTORPHANOL, LEVOFLOXACIN, NONSTEROIDAL ANTIINFLAMMATORY DRUGS, SCOPOLAMINE, SULFA DRUGS, TOMATO, TRAMADOL. FAMILY HISTORY: History of brother with Crohn's disease. SOCIAL HISTORY: Lives with her and four children. Does not smoke, drink or use any illicit drugs. PHYSICAL EXAMINATION: VITAL SIGNS: Temperature 98.1, pulse 87, respirations 18, blood pressure 104/68 (80), pulse oximetry 98% on room air. This is a pleasant 38-year-old female who does not appear in acute distress. She is appropriately answering questions. Sitting up in the bed with her at bedside and her son sitting on the window ledge. She does not appear uncomfortable and is able to answer questions without dyspnea or shortness of breath. HEENT: Atraumatic, normocephalic. Pupils are equal, around and reactive. Oropharynx is clear. No exudate. On the perioral area there are multiple vesicle lesions following a dermatomal pattern, possible HSV, denies a history of it. CARDIOVASCULAR: Regular rate and rhythm with no audible murmurs, rubs or gallops. LUNGS: Clear to auscultation bilaterally. No audible wheezing, rhonchi or rales. ABDOMEN: Positive bowel sounds in all four quadrants. Soft, nontender, nondistended. No rebound. No guarding. EXTREMITIES: No clubbing, cyanosis or edema. No skin breakdown noted. NEUROLOGIC: Alert and oriented times three. Able to answer questions appropriately. Follows simple commands. Strength examination is 5/5 in upper and lower extremities. SKIN: Intact. There is a tunneled catheter on the right chest wall with clean dressing on top. No erythema. No discharge. No tenderness noted. No other skin breakdown is noted. LABORATORY DATA: WBC 12.6, hemoglobin 7.5, hematocrit 24.6, platelets 187. Chemistry: Sodium 148, potassium 3.5, chloride 118, carbon dioxide 21, BUN 8, creatinine 0.91, GFR less than 60, fasting glucose 109, calcium 7.3, alkaline phosphatase 243, total protein 5.2, pro calcitonin 55.08. Microbiology: Blood culture times one positive for Serratia marcescens. Respiratory panel negative. Urine culture was negative. Blood fungal culture pending. Blood cultures times one with no growth in 24 hours. Urine culture, repeat, pending. Blood cultures from port line pending. IMAGING: Chest x-ray on 01/11/2019 shows negative for acute pulmonary disease. Abdominal/pelvic CT on 01/11/2019 shows approximately ill-defined nodular densities in the visualized right lung base and one visualized in the left lung base. They are new and may be inflammatory in nature. Consider CT of the chest to evaluate for other nodules or other lung abnormalities. No free air, free fluid or evidence of bowel obstruction. No definite sign of appendicitis, although the appendix is not clearly delineated due to lack of IV or oral contrast. No renal or urethral calculi or hydronephrosis noted. CT of the chest on 01/12/2019 showed multiple bilateral ill-defined nodules, several which are cavitary and most of which are new when compared to 06/10/2018 prior study. Several of the nodules identified on the prior study are resolved. Waxing and waning inflammatory disease, septic emboli versus fungal infection versus chronic granulomatosis. Abdominal ultrasound, status post cholecystectomy with common bile duct measuring 12 mm. No liver or pancreatic mass is seen. Mildly increased echotexture of the liver, may represent diffuse fibrofatty infiltrate, mild splenomegaly. IMPRESSION/PLAN: This is a 38-year-old female who has a pertinent past medical history of repeated pseudomonas infection in her line. She presented to the emergency department after increased nausea, vomiting, abdominal pain, and a significant leukocytosis of 40s. The patient will be managed for the following problems: 1. Bacteremia times one, positive with Serratia marcescens. Leukocytosis did improve from 38.1 on admission to 12.6 today. A pro calcitonin is still elevated at 55.08. Even though she has been on vancomycin and Zosyn since admission, she has recently changed to ceftriaxone and is responding appropriately. We are unsure if the patient has a line infection, because she does have a history of repeated line infection with pseudomonas. Because of the recent lung imaging to suggest possible septic emboli, we do recommend getting an echocardiogram to assess if there is a valvular endocarditis. We will review the CT of the lung with radiology. We do recommend antibiotic therapy for 2 to 4 weeks pending the results of these findings. We will continue ceftriaxone 2 grams every 24 hours. 2. History of malabsorption secondary to gastric bypass surgery, currently on total parenteral nutrition. We are unsure if her line is the possible source of infection. We will follow the recommendations of dietary for TPN and use sterile technique when manipulating the line. We have obtained blood culture from the line to see if there is any growth since starting antibiotics. Continue to monitor. 3. New perioral vesicular lesions. They look herpetic in nature. The patient denies having a history of HSV. We will obtain an HSV I and II PCR from the lesion. We have started Valtrex 500 mg every 8 hours. Because of the history of malabsorption secondary to gastric bypass surgery we do not want to irritate her bowels. We will continue to monitor. Thank you for this consultation, we will continue to follow the patient while she is admitted. My faculty preceptor for this patient encounter was physically present during the encounter and was fully available. All aspects of the patient interview, examination, medical decision making process, and medical care plan development were reviewed and approved by the faculty preceptor. The faculty preceptor is aware and concurs with the plan as stated in the body of this note and will attest to such by his/her co-signature.
[2019-01-14] MEDS ORDERED: diphenhydrAMINE 25 MG CAP PO ONE (11:00)
[2019-01-14] MEDS ORDERED: KCL 10MEQ/100ML SWI (KRUN) 10 MEQ in APPROPRIATE DILUENT 1 EA IV ONE (11:00)
[2019-01-14] MEDS: ONDANSETRON 4MG/2ML VIAL (J2405) IV PRN ×2 (11:12→17:31)
[2019-01-14 12:00] VITALS: BP 118/69
[2019-01-14] MEDS: PERCOCET 5MG/325MG TAB PO PRN ×2 (12:21→20:05)
--- NOTE | 2019-01-14 15:21 | IPNPDOC ---
Text Note Date of Service The patient was seen on 01/14/19. NOTE Subjective: Patient is a 38-year-old female with a PMHx of Gastric bypass with malabsorption (2008), Chronic TPN, Multiple bowel obstructions causing ischemia / resection of bowel, AKBAR who presented to the ER with complaints of nausea, vomiting and abdominal pain. In the emergency room, patient was found to have a significantly elevated white blood cell count and suspicion of acute pancreatitis. Surgery was called on consultation for evaluation. Patient was seen and examined at the bedside. Patient denies any CP, SOB, or palpitations. Denies any N/V, abdominal pain, constipation / diarrhea. Denies any discomfort with urination. Objective: Vitals (See below) General: Lying in bed, no acute distress, comfortable, AAOx3 HEENT: NC, AT CVS: RRR, +S1S2 Lungs: Fair air entry b/l, auscultation is without any wheezing, rales or rhonchi Abdomen: Soft, nondistended, without tenderness, + R sided CVA tenderness Extremities: No evidence of edema, - Calf tenderness Assessment and plan: Sepsis - possibly 2/2 intra-abdominal source - possibly 2/2 R sided pyelonephritis, possibly line infection (Port) - Patient had presented with nausea, vomiting, abdominal pain and fevers at home - On arrival to the emergency room, patient had fever and chills - Leukocytosis has been improving - Blood cultures (1 of 1) 01/11: Serratia marcescens; Repeat blood cultures 01/12: No growth at 24 hours; Urine culture 01/11: Negative (Contaminated) - Fungal cultures 01/11: Pending - CT ab/pel 01/11: Approximately three ill-defined nodular densities in the visualized right lung base and one on the visualized left lung base. These are new and may be inflammatory in nature. Consider CT of the chest to evaluate for other nodules or other lung abnormalities. No free air or free fluid and no evidence of bowel obstruction. No definite signs of appendicitis, although the appendix is not clearly delineated due to lack of IV and oral contrast. No renal or ureteral calculus and no hydroureteronephrosis. - CT chest 01/12: Multiple bilateral ill-defined nodules several of which are cavitary and most of which are new when compared with the June 10, 2018 prior study. Several of the nodules identified on that prior study have resolved. Waxing and waning an inflammatory disease. Septic emboli versus fungal i nfection versus chronic granulomatous disease. - US abdomen 01/12: Status-post cholecystectomy with common bile duct measurement 12 mm. No liver or pancreatic mass is seen. Mildly increase echotexture of the liver may represent diffuse fibrofatty infiltration Mild splenomegaly. - c/w Ceftriaxone; s/p Zosyn and Vancomycin (Antibiotic day #4) - ECHO pending; depending on echo findings will be 2 weeks versus 4 weeks antibiotics - ID on consultation Lip lesions - possibly 2/2 HSV, possibly 2/2 CMV - Will send off viral panel - Will consult infectious disease s/p MARILUZ - likely 2/2 sepsis / dehydration - Has improved with IV fluid hydration s/p Elevation of liver enzymes - Has trended back down to normal Microcytic / Normocytic Anemia - likely 2/2 AKBAR - Hemoglobin appears to remain stable - c/w iron supplementation Mood disorder - c/w Fluoxetine and hydroxyzine Insomnia - c/w Ambien GERD - c/w Sucralfate DVT prophylaxis - c/w Heparin VS,Fishbone, I+O VS, Fishbone, I+O Laboratory Tests 01/14/19 06:16 Red Blood Count 2.71 L, Mean Corpuscular Volume 81.2, Mean Corpuscular Hemoglobin 24.7 L, Mean Corpuscular Hemoglobin Concent 30.5 L, Red Cell Distribution Width 15.5 H, Calcium Level 7.3 L, Aspartate Amino Transf (AST/SGOT) 25, Alanine Aminotransferase (ALT/SGPT) 30, Alkaline Phosphatase 236 H, Total Bilirubin 0.4, Total Protein 5.0 L, Albumin 2.0 L Vital Signs Date Time Temp Pulse Resp B/P (MAP) Pulse Ox O2 Delivery O2 Flow Rate FiO2 01/14/19 12:51 18 01/14/19 12:00 97.6 74 118/69 (85) 98 01/11/19 20:45 Room Air I&O- Last 24 Hours up to 6 AM 01/14/19 06:00 Intake Total 2290 ml Output Total 500 ml Balance 1790 ml EMANI HINES MD Jan 14, 2019 15:21
[2019-01-14 16:00] VITALS: BP_SYST 100; BP_SYST 113; BP_DIAS 58; BP_DIAS 68
[2019-01-14] MEDS ORDERED: CEFT2ADD INJ (16:54)
[2019-01-14] MEDS ORDERED: HEPAINJ10 IV (16:54)
[2019-01-14 20:00] VITALS: BP 142/75
[2019-01-14] MEDS: zolPIDEM TARTRATE 5 MG TAB PO SCH (20:05)
[2019-01-15] VITALS (7 sets, daily range): BP systolic 115–136; BP diastolic 67–83
[2019-01-15] MEDS: D5W/0.45% SODIUM CHLORIDE 1,000 ML IV SCH (01:05)
[2019-01-15] MEDS: SUCRALFATE SUSP 1GM/10ML UD PO SCH ×4 (01:05→17:17)
[2019-01-15] MEDS: MAGIC MOUTHWASH SUSPENSION BTL SS PRN ×2 (04:40→21:01)
[2019-01-15] MEDS: PERCOCET 5MG/325MG TAB PO PRN ×3 (04:41→17:17)
[2019-01-15] MEDS: valACYclovir HCL 500 MG TAB PO SCH ×3 (05:56→20:59)
--- NOTE | 2019-01-15 06:20 | ECHO ---
DATE OF PROCEDURE: 01/14/2019 DATE OF : 1980 AGE: 38 REFERRING PROVIDER: Dr. Bell Eugene. PATIENT LOCATION: Room 3230. REASON FOR ECHOCARDIOGRAM: Fever. 2D MEASUREMENTS: IVS: 0.9 cm LV: 4.6 cm LVPW: 0.9 cm LA: 3.7 cm Aorta: 2.6 cm IVC: 2.3 cm DOPPLER MEASUREMENTS: Peak velocity across the aortic valve: 1.2 m/s Peak velocity across the LVOT: 0.7 m/s Mitral E: 0.85 Mitral A: 0.49 Ratio 1.7 Maximum tricuspid valve velocity: 2.9 m/s 2D COMMENTS: 1. Normal left ventricular size, wall thickness and normal global left ventricular systolic function. The estimated global left ventricular systolic ejection fraction is 60% to 65%. 2. The left atrium appeared to be normal in size. The right atrium appeared to be mildly enlarged. Normal right ventricle. 3. The atrial septum appeared to be normal without evidence of defect or shunt. 4. Normal aortic root. 5. Trace to small pericardial effusion noted posteriorly at the base of the left ventricle, no evidence of cardiac tamponade. 6. Normal aortic valve, mitral valve, tricuspid valve, and pulmonic valve. The proximal pulmonary artery branches were not well visualized. 7. The inferior vena cava was mildly enlarged, central venous pressure is probably elevated. DOPPLER: It detects mild aortic regurgitation, moderate mitral regurgitation and moderate tricuspid regurgitation. The calculated pulmonary artery systolic pressure varies between 40 to 50 mmHg. Assessment of the left ventricular diastolic function appeared to be normal. IMPRESSION: 1. Normal global left ventricular systolic and diastolic function. 2. Aortic valve sclerosis with mild aortic regurgitation and no aortic stenosis. 3. Moderate mitral regurgitation. 4. Moderate tricuspid regurgitation with mildly enlarged right atrium and moderate pulmonary hypertension. 5. The inferior vena cava is dilated, central venous pressure mildly elevated. 6. Trace to small pericardial effusion noted at the base of the left ventricle, no evidence of cardiac tamponade. 7. No vegetations noted in this transthoracic echocardiogram and if needed, to consider a transesophageal echocardiogram.
[2019-01-15 06:29] LABS: HEMATOCRIT 27.1 % (36.0-47.0); HEMOGLOBIN 8.7 g/dl (12.0-15.5); MEAN CORPUSCULAR HEMOGLOBIN 26.1 pg (27.0-33.0); MEAN CORPUSCULAR HGB CONC 32.1 g/dl (32.0-36.5); MEAN CORPUSCULAR VOLUME 81.4 fl (80.0-96.0); PLATELET COUNT, AUTOMATED 185 10^3/uL (150-450); RED BLOOD COUNT 3.33 10^6/uL (4.00-5.40); WHITE BLOOD COUNT 4.6 10^3/uL (4.0-10.0)
[2019-01-15 06:58] LABS: ALBUMIN 2.1 GM/DL (3.2-5.2); ALT/SGPT 23 U/L (12-78); BILIRUBIN,TOTAL 0.8 MG/DL (0.2-1.0); BLOOD UREA NITROGEN 2 MG/DL (7-18); CALCIUM LEVEL 7.5 MG/DL (8.5-10.1); CARBON DIOXIDE LEVEL 24 MEQ/L (21-32); CHLORIDE LEVEL 112 MEQ/L (98-107); CREATININE FOR GFR 0.61 MG/DL (0.55-1.30); GLOMERULAR FILTRATION RATE > 60.0 (>60); GLUCOSE, FASTING 114 MG/DL (70-100); SODIUM LEVEL 144 MEQ/L (136-145); TOTAL PROTEIN 4.9 GM/DL (6.4-8.2)
[2019-01-15] MEDS: cefTRIAXone SOD 2 GM in D5W MINI-BAG PLUS 50 ML IV SCH (08:15)
[2019-01-15] MEDS: FERROUS SULFATE 325MG TAB PO SCH ×2 (08:15→20:59)
[2019-01-15] MEDS: FLUoxetine 20 MG CAP PO SCH (08:15)
[2019-01-15] MEDS: SODIUM CHLORIDE 0.9% INJ 10 ML SYR IV SCH (08:23)
[2019-01-15] MEDS: KCL 10MEQ/100ML SWI (KRUN) 10 MEQ in APPROPRIATE DILUENT 1 EA IV SCH ×2 (09:24→10:33)
[2019-01-15] MEDS: HEPARIN SOD (PORCINE) 5000 UNITS/ML VIAL SC SCH ×2 (09:24→21:00)
[2019-01-15] MEDS: KCL 40MEQ IN D5/0.45NS 1000ML 1,000 ML IV SCH (10:33)
--- NOTE | 2019-01-15 12:36 | IPNPDOC ---
Text Note Date of Service The patient was seen on 01/15/19. NOTE Subjective: Patient is a 38-year-old female with a PMHx of Gastric bypass with malabsorption (2008), Chronic TPN, Multiple bowel obstructions causing ischemia / resection of bowel, AKBAR who presented to the ER with complaints of nausea, vomiting and abdominal pain. In the emergency room, patient was found to have a significantly elevated white blood cell count and suspicion of acute pancreatitis. Surgery was called on consultation for evaluation. Patient was seen and examined at the bedside. Currently patient has a denies chest pain, shortness of breath, palpitations, nausea, vomiting, abdominal pain, obstipation, diarrhea or discomfort with urination. I discussed with her the possibility of a transesophageal echocardiogram, and advised that we will discuss with infectious disease. Objective: Vitals (See below) General: Lying in bed, no acute distress, comfortable, AAOx3 HEENT: NC, AT CVS: RRR, +S1S2 Lungs: Fair air entry b/l, currently due does not appear to be any rales, rhonchi or wheezing Abdomen: Soft, nondistended, without tenderness Extremities: No evidence of edema, - Calf tenderness Assessment and plan: Sepsis - possibly 2/2 intra-abdominal source - possibly 2/2 R sided pyelonephritis, possibly line infection (Port) - Patient had presented with nausea, vomiting, abdominal pain and fevers at home - On arrival to the emergency room, patient had fever and chills - Leukocytosis has been improving - Blood cultures (1 of 1) 01/11: Serratia marcescens; Repeat blood cultures 01/12: No growth at 24 hours; Urine culture 01/11: Negative (Contaminated) - Fungal cultures 01/11: Pending - CT ab/pel 01/11: Approximately three ill-defined nodular densities in the visualized right lung base and one on the visualized left lung base. These are new and may be inflammatory in nature. Consider CT of the chest to evaluate for other nodules or other lung abnormalities. No free air or free fluid and no evidence of bowel obstruction. No definite signs of appendicitis, although the appendix is not clearly delineated due to lack of IV and oral contrast. No renal or ureteral calculus and no hydroureteronephrosis. - CT chest 01/12: Multiple bilateral ill-defined nodules several of which are cavitary and most of which are new when compared with the June 10, 2018 prior study. Several of the nodules identified on that prior study have resolved. Waxing and waning an inflammatory disease. Septic emboli versus fungal infection versus chronic granulomatous disease. - US abdomen 01/12: Status-post cholecystectomy with common bile duct measurement 12 mm. No liver or pancreatic mass is seen. Mildly increase echotexture of the liver may represent diffuse fibrofatty infiltration Mild splenomegaly. - c/w Ceftriaxone; s/p Zosyn and Vancomycin (Antibiotic day #5); will plan for outpatient antibiotic infusion - ECHO transthoracic does not reveal any evidence of vegetations; will discuss with infectious disease about potential for transesophageal echocardiogram - ID on consultation Lip lesions - possibly 2/2 HSV, possibly 2/2 CMV - Viral panel pending - c/w Valacyclovir (Day #3) s/p MARILUZ - likely 2/2 sepsis / dehydration - Has improved with IV fluid hydration s/p Elevation of liver enzymes - Has trended back down to normal Microcytic / Normocytic Anemia - likely 2/2 AKBAR - Hemoglobin appears to remain stable - c/w iron supplementation Mood disorder - c/w Fluoxetine and hydroxyzine Insomnia - c/w Ambien GERD - c/w Sucralfate DVT prophylaxis - c/w Heparin Disposition: - Possible transesophageal echocardiogram - Anticipated discharge for tomorrow VSJoel, I+O VSJoel I+O Laboratory Tests 01/15/19 06:05 Red Blood Count 3.33 L, Mean Corpuscular Volume 81.4, Mean Corpuscular Hemoglobin 26.1 L, Mean Corpuscular Hemoglobin Concent 32.1, Red Cell Distribution Width 15.0 H, Calcium Level 7.5 L, Aspartate Amino Transf (AST/SGOT) 13, Alanine Aminotransferase (ALT/SGPT) 23, Alkaline Phosphatase 272 H, Total Bilirubin 0.8 #, Total Protein 4.9 L, Albumin 2.1 L Vital Signs Date Time Temp Pulse Resp B/P (MAP) Pulse Ox O2 Delivery O2 Flow Rate FiO2 01/15/19 11:11 18 01/15/19 08:00 98.0 64 127/78 (94) 98 01/11/19 20:45 Room Air I&O- Last 24 Hours up to 6 AM 01/15/19 06:00 Intake Total 1577 ml Output Total 0 ml Balance 1577 ml EMANI HINES MD Jan 15, 2019 12:35
[2019-01-15] MEDS: FLUCONAZOLE 100 MG TAB PO SCH (14:23)
[2019-01-15] MEDS: zolPIDEM TARTRATE 5 MG TAB PO SCH (20:59)
--- NOTE | 2019-01-15 22:44 | IPN ---
DATE: 01/15/2019 Claude is feeling well. She has no new complaints today. She has mild nausea but that is usual for her. No abdominal pain. She also has developed a mild cough and some nonspecific chest pain. On admission, her white count was 38.1; today it was 4.6. She is afebrile. Temperature is 98.5, pulse 69, respirations 18, blood pressure 136/83, oxygen saturation (O2 sat) 99% on room air. Heart: Normal S1, S2. No murmurs appreciated. Lungs are clear. No wheezes, rales or rhonchi. Abdomen is soft, nontender. No hepatosplenomegaly. Extremities: No edema. No calf tenderness. LABORATORY DATA: Sodium 144, potassium 3, chloride 113, bicarbonate 24, BUN 2, creatinine 0.61, glucose 114, calcium 7.5, AST 13, ALT 23, alkaline phosphatase 272, total protein 4.9, albumin 2.1, white count 4.6, hemoglobin 8.7, hematocrit 27.1, platelets 185, hemoglobin yesterday was 6.7, and the patient received two units of packed red blood cells. IMAGING STUDIES: Abdominal ultrasound done on 01/12/2019 showed cholecystectomy with the common bile duct measuring 12 mm . No liver or pancreatic masses. Fatty liver and mild splenomegaly was noted. Chest CT was reviewed with Dr. Valdez yesterday, showed multiple bilateral defined nodules, several of which are cavitary and most are new compared to 06/10/2018. Several of the nodules from prior study had resolved. Blood culture done on 01/11/2019, only one set, was positive for Serratia marcescens. Urine culture was negative on 01/11/2019. Blood culture on 01/12/2019 and 01/13/2019 are negative. IMPRESSION: 1. Line infection with Serratia marcescens and septic emboli to the lung. The patient is on IV ceftriaxone at a dose of 2 grams every 24 hours. The patient will be treated with 4 weeks of IV antibiotics since she has septic emboli to the lungs. The concern is whether she has tricuspid valve endocarditis. The patient has agreed to getting a transesophageal echocardiogram. She has had similar episode last summer and had a transesophageal echocardiogram (JUAN). 2. Candidiuria. Urinalysis is pretty benign. She only has 9 white cells, +2 leukocyte esterase. If patient is symptomatic, she does not need to be treated with Diflucan. 3. Protein calorie malnutrition. Currently total parenteral nutrition (TPN) on hold. She is only receiving IV fluids through her line. PLAN: Transesophageal echocardiogram tomorrow; if negative the patient could be discharged home with 4 weeks of IV Rocephin. If she has clot or endocarditis, then the line will need to be removed. This has been discussed with Dr. Farfan and patient herself, and she understands the plan of action.
[2019-01-16] VITALS (7 sets, daily range): BP systolic 106–144; BP diastolic 61–87
[2019-01-16] MEDS: PERCOCET 5MG/325MG TAB PO PRN ×4 (00:24→20:21)
[2019-01-16] MEDS: SUCRALFATE SUSP 1GM/10ML UD PO SCH ×4 (00:24→19:23)
[2019-01-16] MEDS: ONDANSETRON 4MG/2ML VIAL (J2405) IV PRN ×2 (04:02→14:25)
[2019-01-16] MEDS: MORPHINE 4 MG/ML 1ML VIAL/SYRINGE (J2270) IV PRN (04:02)
[2019-01-16] MEDS: valACYclovir HCL 500 MG TAB PO SCH ×3 (05:00→22:00)
[2019-01-16] MEDS: KCL 40MEQ IN D5/0.45NS 1000ML 1,000 ML IV SCH (05:01)
[2019-01-16 05:46] LABS: HEMOGLOBIN 8.5 g/dl (12.0-15.5); MEAN CORPUSCULAR HEMOGLOBIN 25.9 pg (27.0-33.0); MEAN CORPUSCULAR HGB CONC 31.5 g/dl (32.0-36.5); MEAN CORPUSCULAR VOLUME 82.3 fl (80.0-96.0); PLATELET COUNT, AUTOMATED 241 10^3/uL (150-450); RED BLOOD COUNT 3.28 10^6/uL (4.00-5.40); WHITE BLOOD COUNT 5.5 10^3/uL (4.0-10.0)
[2019-01-16 06:11] LABS: ALBUMIN 2.1 GM/DL (3.2-5.2); ALT/SGPT 19 U/L (12-78); BILIRUBIN,TOTAL 0.5 MG/DL (0.2-1.0); BLOOD UREA NITROGEN 1 MG/DL (7-18); CALCIUM LEVEL 7.5 MG/DL (8.5-10.1); CARBON DIOXIDE LEVEL 26 MEQ/L (21-32); CHLORIDE LEVEL 111 MEQ/L (98-107); CREATININE FOR GFR 0.53 MG/DL (0.55-1.30); GLOMERULAR FILTRATION RATE > 60.0 (>60); GLUCOSE, FASTING 92 MG/DL (70-100); POTASSIUM SERUM 3.5 MEQ/L (3.5-5.1); SODIUM LEVEL 145 MEQ/L (136-145); TOTAL PROTEIN 5.1 GM/DL (6.4-8.2)
[2019-01-16] MEDS: SODIUM CHLORIDE 0.9% INJ 10 ML SYR IV SCH (09:00)
[2019-01-16] MEDS: cefTRIAXone SOD 2 GM in D5W MINI-BAG PLUS 50 ML IV SCH (09:06)
[2019-01-16] MEDS: FLUoxetine 20 MG CAP PO SCH (09:07)
[2019-01-16] MEDS: FERROUS SULFATE 325MG TAB PO SCH ×2 (09:07→20:21)
[2019-01-16] MEDS: FLUCONAZOLE 100 MG TAB PO SCH (09:07)
[2019-01-16] MEDS: HEPARIN SOD (PORCINE) 5000 UNITS/ML VIAL SC SCH ×2 (09:36→20:23)
[2019-01-16] MEDS ORDERED: CETACAINE SPRAY 5GM As Ordered ONE (12:32)
[2019-01-16] MEDS ORDERED: LIDOCAINE VISCOUS 2% SOLN 15ML UDC As Ordered ONE ×2 (12:33→13:14)
[2019-01-16] MEDS ORDERED: PROPOFOL 200 MG/20 ML VIAL As Ordered ONE ×2 (13:04→13:05)
[2019-01-16] MEDS ORDERED: fentaNYL 100 MCG/2 ML INJECTION (J3010) As Ordered ONE (13:04)
[2019-01-16] MEDS ORDERED: LIDOCAINE 2% INJ 100 MG/5 ML SDV (FOR ANES.) As Ordered ONE (13:04)
[2019-01-16] MEDS ORDERED: MIDAZOLAM INJ 2 MG/2 ML VIAL (J2250) As Ordered ONE (13:04)
[2019-01-16] MEDS ORDERED: ONDANSETRON 4MG/2ML VIAL (J2405) As Ordered ONE (13:05)
[2019-01-16] MEDS ORDERED: ONDANSETRON 4MG/2ML VIAL (J2405) IV PRN (13:30)
[2019-01-16] MEDS ORDERED: LR 1,000 ML IV SCH (13:30)
--- NOTE | 2019-01-16 14:42 | IPNPDOC ---
Text Note Date of Service The patient was seen on 01/16/19. NOTE Subjective: Patient is a 38-year-old female with a PMHx of Gastric bypass with malabsorption (2008), Chronic TPN, Multiple bowel obstructions causing ischemia / resection of bowel, AKBAR who presented to the ER with complaints of nausea, vomiting and abdominal pain. In the emergency room, patient was found to have a significantly elevated white blood cell count and suspicion of acute pancreatitis. Surgery was called on consultation for evaluation. Patient was seen and examined at the bedside. Currently patient has a denies chest pain, shortness of breath, palpitations, nausea, vomiting, abdominal pain, obstipation, diarrhea or discomfort with urination. I discussed with her the possibility of a transesophageal echocardiogram, and advised that we will discuss with infectious disease. Objective: Vitals (See below) General: Lying in bed, no acute distress, comfortable, AAOx3 HEENT: NC, AT CVS: RRR, +S1S2 Lungs: Fair air entry b/l, currently due does not appear to be any rales, rhonchi or wheezing Abdomen: Soft, nondistended, without tenderness Extremities: No evidence of edema, - Calf tenderness Assessment and plan: Sepsis - possibly 2/2 intra-abdominal source - possibly 2/2 R sided pyelonephritis, possibly line infection (Port) - Currently patient has no complaints - Leukocytosis has been improving - Blood cultures (1 of 1) 01/11: Serratia marcescens; Repeat blood cultures 01/12: No growth at 24 hours; Urine culture 01/11: Negative (Contaminated) - Fungal cultures 01/11: Yeast like organisms - CT ab/pel 01/11: Approximately three ill-defined nodular densities in the visualized right lung base and one on the visualized left lung base. These are new and may be inflammatory in nature. Consider CT of the chest to evaluate for other nodules or other lung abnormalities. No free air or free fluid and no evidence of bowel obstruction. No definite signs of appendicitis, although the appendix is not clearly delineated due to lack of IV and oral contrast. No renal or ureteral mihaela culus and no hydroureteronephrosis. - CT chest 01/12: Multiple bilateral ill-defined nodules several of which are cavitary and most of which are new when compared with the June 10, 2018 prior study. Several of the nodules identified on that prior study have resolved. Waxing and waning an inflammatory disease. Septic emboli versus fungal infection versus chronic granulomatous disease. - US abdomen 01/12: Status-post cholecystectomy with common bile duct measurement 12 mm. No liver or pancreatic mass is seen. Mildly increase echotexture of the liver may represent diffuse fibrofatty infiltration Mild splenomegaly. - c/w Ceftriaxone; s/p Zosyn and Vancomycin (Antibiotic day #6); Will continue with Ceftriaxone until 01/08/2019 - Patient has received a transesophageal echocardiogram; does not reveal any evidence of vegetations - ID on consultation Lip lesions - possibly 2/2 HSV, possibly 2/2 CMV - Viral panel pending - c/w Valacyclovir (Day #4) s/p MARILUZ - likely 2/2 sepsis / dehydration - Has improved with IV fluid hydration s/p Elevation of liver enzymes - Has trended back down to normal Microcytic / Normocytic Anemia - likely 2/2 AKBAR - Hemoglobin appears to remain stable - c/w iron supplementation Mood disorder - c/w Fluoxetine and hydroxyzine Insomnia - c/w Ambien GERD - c/w Sucralfate DVT prophylaxis - c/w Heparin Disposition: - Will discharge tomorrow with 4 weeks of IV antibiotics VS,Fishbone, I+O VS, Fishbone, I+O Laboratory Tests 01/16/19 04:56 Red Blood Count 3.28 L, Mean Corpuscular Volume 82.3, Mean Corpuscular Hemoglobin 25.9 L, Mean Corpuscular Hemoglobin Concent 31.5 L, Red Cell Distribution Width 15.3 H, Calcium Level 7.5 L, Aspartate Amino Transf (AST/SGOT) 10, Alanine Aminotransferase (ALT/SGPT) 19, Alkaline Phosphatase 249 H, Total Bilirubin 0.5, Total Protein 5.1 L, Albumin 2.1 L Vital Signs Date Time Temp Pulse Resp B/P (MAP) Pulse Ox O2 Delivery O2 Flow Rate FiO2 01/16/19 13:44 97.8 72 18 138/86 97 01/11/19 20:45 Room Air I&O- Last 24 Hours up to 6 AM 01/16/19 06:00 Intake Total 2080 ml Output Total 1950 ml Balance 130 ml EMANI HINES MD Jan 16, 2019 14:42
--- NOTE | 2019-01-16 16:39 | IPN ---
DATE: 01/16/2018 Claude is complaining of increasing pleuritic chest pain and a dry, nonproductive cough. She just came back from her transesophageal echocardiogram done by Dr. Baez, which was negative. Temperature is 97.8, pulse 72, respirations 18, blood pressure 138/86, oxygen saturation 97% on room air. Heart: Normal S1, S2 with no murmurs. Lungs: Diminished breath sounds at the bases but clear. Abdomen is soft, nontender. No hepatosplenomegaly. Extremities: Trace edema. LABORATORY DATA: White count is 5.5, hemoglobin 8.5, hematocrit 27, platelets 241. Sodium 145, potassium 3.5, chloride 111, bicarbonate 26, BUN 1, creatinine 0.53, glucose 92, calcium 7.5. AST 10, ALT 19, alkaline phosphatase 249, albumin 2.1. Blood cultures from January 11 had Serratia marcescens. Blood culture from January 12 and January 13, one from the port was negative. IMPRESSION: 1. Line infection with Serratia with septic emboli to the lungs. Negative transesophageal echocardiogram for endocarditis or clots on the line. The patient will be treated with 4 weeks of intravenous (IV) antibiotics. 2. Caniduria. I do not see an indication for treatment. Will discontinue fluconazole. 3. Lip lesions. Herpes simplex virus (HSV. Test is pending. Will discontinue treatment after 5 days if the lesions have improved. PLAN: Discontinue fluconazole. Discontinue Valtrex after 5 days of treatment. Orders have been written for the patient to be discharged home with IV Rocephin for a total of 4 weeks. End of therapy will be February 09. Labs include complete blood count (CBC), comprehensive metabolic panel (CMP), erythrocyte sedimentation rate (ESR), C-reactive protein (CRP).
[2019-01-16] MEDS: zolPIDEM TARTRATE 5 MG TAB PO SCH (20:27)
[2019-01-17 00:07] LABS: HSV-1 DNA Negative (Negative); HSV-2 DNA Negative (Negative)
[2019-01-17] MEDS: SUCRALFATE SUSP 1GM/10ML UD PO SCH ×2 (00:42→05:19)
[2019-01-17] MEDS: KCL 40MEQ IN D5/0.45NS 1000ML 1,000 ML IV SCH (00:43)
[2019-01-17] MEDS: MORPHINE 4 MG/ML 1ML VIAL/SYRINGE (J2270) IV PRN ×2 (00:49→08:17)
[2019-01-17] MEDS: PERCOCET 5MG/325MG TAB PO PRN ×2 (03:38→11:08)
[2019-01-17 03:59] VITALS: BP 115/59
[2019-01-17] MEDS: valACYclovir HCL 500 MG TAB PO SCH (05:19)
[2019-01-17 06:30] LABS: HEMATOCRIT 27.4 % (36.0-47.0); HEMOGLOBIN 8.6 g/dl (12.0-15.5); MEAN CORPUSCULAR HGB CONC 31.4 g/dl (32.0-36.5); MEAN CORPUSCULAR VOLUME 82.8 fl (80.0-96.0); PLATELET COUNT, AUTOMATED 327 10^3/uL (150-450); RED BLOOD COUNT 3.31 10^6/uL (4.00-5.40); WHITE BLOOD COUNT 5.2 10^3/uL (4.0-10.0)
[2019-01-17 06:57] LABS: ALBUMIN 2.2 GM/DL (3.2-5.2); ALT/SGPT 16 U/L (12-78); BILIRUBIN,TOTAL 0.4 MG/DL (0.2-1.0); BLOOD UREA NITROGEN 2 MG/DL (7-18); CALCIUM LEVEL 7.9 MG/DL (8.5-10.1); CARBON DIOXIDE LEVEL 26 MEQ/L (21-32); CHLORIDE LEVEL 109 MEQ/L (98-107); CREATININE FOR GFR 0.66 MG/DL (0.55-1.30); GLOMERULAR FILTRATION RATE > 60.0 (>60); GLUCOSE, FASTING 115 MG/DL (70-100); POTASSIUM SERUM 4.1 MEQ/L (3.5-5.1); SODIUM LEVEL 143 MEQ/L (136-145); TOTAL PROTEIN 4.8 GM/DL (6.4-8.2)
[2019-01-17] MEDS ORDERED: FERR1TAB8 PO (07:32)
[2019-01-17] MEDS ORDERED: PERCOCET PO (07:32)
[2019-01-17] MEDS: cefTRIAXone SOD 2 GM in D5W MINI-BAG PLUS 50 ML IV SCH (07:58)
[2019-01-17 08:00] VITALS: BP 129/65
[2019-01-17] MEDS: FLUoxetine 20 MG CAP PO SCH (08:13)
[2019-01-17] MEDS: HEPARIN SOD (PORCINE) 5000 UNITS/ML VIAL SC SCH (08:13)
[2019-01-17] MEDS: FERROUS SULFATE 325MG TAB PO SCH (08:14)
[2019-01-17 08:27] VITALS: BP 129/65
--- NOTE | 2019-01-17 13:44 | DS.PDOC ---
Discharge Summary General Date of Admission Jan 11, 2019 at 19:24 Date of Discharge 01/17/2019 Discharge Summary PROCEDURES PERFORMED DURING STAY: [None]. ADMITTING DIAGNOSES / DISCHARGE DIAGNOSES: Sepsis - possibly 2/2 intra-abdominal source - possibly 2/2 R sided pyelonephritis, possibly line infection (Port) Lip lesions - possibly 2/2 HSV, possibly 2/2 CMV s/p MARILUZ - likely 2/2 sepsis / dehydration s/p Elevation of liver enzymes Microcytic / Normocytic Anemia - likely 2/2 AKBAR Mood disorder Insomnia GERD DVT prophylaxis COMPLICATIONS/CHIEF COMPLAINT: Presented with nausea, vomiting, abdominal pain HISTORY OF PRESENT ILLNESS: Patient is a 38-year-old female with a PMHx of Gastric bypass with malabsorption (2008), Chronic TPN, Multiple bowel obstructions causing ischemia / resection of bowel, AKBAR who presented to the ER with complaints of nausea, vomiting and abdominal pain. In the emergency room, patient was found to have a significantly elevated white blood cell count and suspicion of acute pancreatitis. Surgery was called on consultation for evaluation. HOSPITAL COURSE: Sepsis - possibly 2/2 intra-abdominal source - possibly 2/2 R sided pyelonephritis, possibly line infection (Port) - s/p Leukocytosis - Blood cultures (1 of 1) 01/11: Serratia marcescens; Repeat blood cultures 01/12: No growth at 24 hours; Urine culture 01/11: Negative (Contaminated) - Fungal cultures 01/11: Yeast like organisms - CT ab/pel 01/11: Approximately three ill-defined nodular densities in the visualized right lung base and one on the visualized left lung base. These are new and may be inflammatory in nature. Consider CT of the chest to evaluate for other nodules or other lung abnormalities. No free air or free fluid and no evidence of bowel obstruction. No definite signs of appendicitis, although the appendix is not clearly delineated due to lack of IV and oral contrast. No renal or ureteral calculus and no hydroureteronephrosis. - CT chest 01/12: Multiple bilateral ill-defined nodules several of which are cavitary and most of which are new when compared with the June 10, 2018 prior study. Several of the nodules identified on that prior study have resolved. Waxing and waning an inflammatory disease. Septic emboli versus fungal infection versus chronic granulomatous disease. - US abdomen 01/12: Status-post cholecystectomy with common bile duct measurement 12 mm. No liver or pancreatic mass is seen. Mildly increase echotexture of the liver may represent diffuse fibrofatty infiltration Mild splenomegaly. - Patient has received a transesophageal echocardiogram; does not reveal any evidence of vegetations - c/w Ceftriaxone - will continue to 01/08/2019 (total of 4 weeks); s/p Zosyn and Vancomycin (Current antibiotic day #7) - ID on consultation; we'll have outpatient follow-up Lip lesions - possibly 2/2 HSV, possibly 2/2 CMV - Partial viral panel pending; HSV PCR negative - c/w Valacyclovir (Day #5) - has completed a 5 day course s/p MARILUZ - likely 2/2 sepsis / dehydration - Has improved with IV fluid hydration s/p Elevation of liver enzymes - Has trended back down to normal Microcytic / Normocytic Anemia - likely 2/2 AKBAR - Hemoglobin appears to remain stable - c/w iron supplementation Mood disorder - c/w Fluoxetine and hydroxyzine Insomnia - c/w Ambien GERD - c/w Sucralfate DVT prophylaxis - c/w Heparin DISCHARGE MEDICATIONS: Please see below. ALLERGIES: Please see below. PHYSICAL EXAMINATION ON DISCHARGE: Vitals (See below) General: Lying in bed, no acute distress, comfortable, AAOx3 HEENT: NC, AT CVS: RRR, +S1S2 Lungs: Fair air entry b/l, no appreciable wheezing, rales or rhonchi Abdomen: Remains soft without distention or tenderness Extremities: No evidence of LE edema, - Calf tenderness LABORATORY DATA: Please see below. ACTIVITY: [As tolerated]. DISCHARGE PLAN: Follow-up with Dr. Gloria Simmons, Dr. Orozco and Mary Zheng within 7 days Remain compliant with treatment plan and medications Return to the ER if you experience any problems DISPOSITION: Home, Self-Care. DISCHARGE CONDITION: [Stable]. TIME SPENT ON DISCHARGE: Greater than [25] minutes. Vital Signs/I&Os Vital Signs Date Time Temp Pulse Resp B/P (MAP) Pulse Ox O2 Delivery O2 Flow Rate FiO2 01/17/19 11:08 18 01/17/19 08:27 98.4 67 129/65 94 01/11/19 20:45 Room Air I&O- Last 24 Hours up to 6 AM 01/17/19 06:00 Intake Total 1945 ml Output Total 1100 ml Balance 845 ml Laboratory Data Labs 24H Laboratory Tests 2 01/17/19 06:15: Nucleated Red Blood Cells % (auto) 0.0, Anion Gap 8, Glomerular Filtration Rate > 60.0, Blood Urea Nitrogen 2#L, Creatinine 0.66, Sodium Level 143, Potassium Level 4.1, Chloride Level 109H, Carbon Dioxide Level 26, Calcium Level 7.9L, Aspartate Amino Transf (AST/SGOT) 10, Alanine Aminotransferase (ALT/SGPT) 16, Alkaline Phosphatase 228H, Total Bilirubin 0.4, Total Protein 4.8L, Albumin 2.2L, Albumin/Globulin Ratio 0.85L CBC/BMP Laboratory Tests 01/17/19 06:15 Red Blood Count 3.31 L, Mean Corpuscular Volume 82.8, Mean Corpuscular Hemoglobin 26.0 L, Mean Corpuscular Hemoglobin Concent 31.4 L, Red Cell Distribution Width 15.6 H, Calcium Level 7.9 L, Aspartate Amino Transf (AST/SGOT) 10, Alanine Aminotransferase (ALT/SGPT) 16, Alkaline Phosphatase 228 H, Total Bilirubin 0.4, Total Protein 4.8 L, Albumin 2.2 L Microbiology Microbiology 01/13/19 Blood Culture - Preliminary, Resulted No Growth after 72 hours. All specime... 01/12/19 Blood Culture - Final, Complete NO GROWTH AFTER 5 DAYS 01/11/19 Blood Fungal Culture, Received Pending 01/11/19 Blood Culture - Final, Complete Serratia Marcescens 01/11/19 Respiratory Virus Panel (PCR) ([facility]) - Final, Complete 01/13/19 Urine Culture - Final, Complete Yeast Like Organism 01/11/19 Urine Culture - Final, Complete Discharge Medications Scheduled Ferrous Sulfate (Ferrous Sulfate) 325 Mg Tab, 325 MG PO BID Fluoxetine HCl (Fluoxetine HCl) 20 Mg/5 Ml Liqd, 20 MG PO DAILY, (Reported) Ondansetron (Ondansetron HCl) 4 Mg/2 Ml Inj, 8 MG INJ Q8H, (Reported) Sucralfate (Sucralfate) 1 Gm/10 Ml Rani, 10 ML PO Q6H, (Reported) Zolpidem Tartrate (Zolpidem Tartrate) 10 Mg Tab, 10 MG PO QHS, (Reported) Scheduled PRN Hydroxyzine HCl (Hydroxyzine HCl) 10 Mg/5 Ml Syp, 5 ML PO Q12H PRN for ITCHING, (Reported) Oxycodone/Acetaminophen (Percocet 5MG/325MG Tablet) 1 Tab Tab, 1 TAB PO Q6HP PRN for MILD/MODERATE PAIN (PS 1-7) Promethazine HCl (Phenadoz) 25 Mg Sup, 25 MG NE for NAUSEA OR VOMITING, (Reported) Allergies Coded Allergies: Sulfa (Sulfonamide Antibiotics) (Verified Allergy, Severe, RESP. PROBLEMS, SWELLING, HIVES, 01/14/19) butorphanol (Verified Allergy, Severe, HIVES/RESP. PROBLEMS (PERCOCET AND TYL#3 OK), 01/14/19) HAS HAD MORPHINE AND DILAUDID IN THE PAST levofloxacin (Verified Allergy, Severe, THROAT SWELLING/HIVES, 01/14/19) tomato (Verified Allergy, Severe, RESP. PROBLEMS, HIVES, 01/14/19) tramadol (Verified Allergy, Severe, SOB - HAS HAD MORPHINE AND DILAUDID IN THE PAST, 01/14/19) scopolamine (Verified Adverse Reaction, Intermediate, VISION LOSS, 01/14/19) NSAIDS (Non-Steroidal Anti-Inflamma (Verified Adverse Reaction, Mild, GASTRIC BYPASS, 01/14/19) EMANI HINES MD Jan 17, 2019 13:44
[2019-01-17 13:50] LABS: CMV QUANT DNA PCR (PLASMA) Negative (Negative)
[2019-01-18 00:07] LABS: CYTOMEGALOVIRUS IgM ANTIBODY <30.0 AU/mL (0.0-29.9); HSV TYPE I IgM AB <1:10 titer (<1:10); HSV TYPE II IgG SPECIFIC <0.91 index (0.00-0.90); HSV TYPE II IgM ABY <1:10 titer (<1:10); HSV-1 DNA Negative (Negative); HSV-2 DNA Negative (Negative)
--- NOTE | 2019-01-19 05:33 | T-ECHO ---
DATE OF PROCEDURE: 01/16/2019 REFERRING PHYSICIAN: Dr. Ruben Farfan INDICATION: Bacterial sepsis (serratia). PREPROCEDURE DIAGNOSIS: Bacterial sepsis (serratia). POSTPROCEDURE DIAGNOSIS: No vegetations. PRINCIPAL FINDINGS: No vegetations. PROCEDURE PERFORMED BY: Guzman Baez MD SUPERVISOR [employer]: None. INTRAVENOUS (IV) SEDATION: Propofol IV as administered by certified registered nurse milk tester (ACADEMIC COMPUTING DIRECTOR). COMPLICATIONS: None. PROCEDURE DESCRIPTION: Rhythm was sinus. Patient received topical Cetacaine spray to the back of the pharynx. She received IV propofol per ACADEMIC COMPUTING DIRECTOR. After receiving adequate sedation, a bite guard was placed into the patient's mouth to protect her teeth and the Salty 3D transesophageal echocardiogram probe was placed to the back of the pharynx and then esophageal intubation was accomplished without difficulty with Dr. Baez directing the scope with a finger towards the esophagus. Image quality was excellent. The left ventricle appeared normal in size and systolic function and without regional wall motion abnormalities. Left ventricular ejection fraction (LVEF) 65% by visual estimate. Right ventricle appeared normal in size and systolic function. Atria did not appear enlarged. No masses or thrombi were seen within the atria or their appendages. Atrial septum appeared intact anatomically and by color flow Doppler. Aortic valve was three-cusp and displayed mild focal thickening. Very mild aortic regurgitation was present. Mitral leaflets were structurally and functionally normal. Mild mitral regurgitation was present and within physiologic limits. Tricuspid and pulmonic valves were normal. No vegetations on any of the cardiac valves. A small pericardial effusion was present. No diastolic chamber collapse. Distal aortic arch and descending thoracic aorta appeared normal. The tip of a multilumen catheter was seen in the superior vena cava with the tip at the junction of the superior vena cava with the right atrium. For that visualized portion in the superior vena cava of the multilumen catheter, no mass or vegetations were seen attached. Bubbles from the fluids traveling through the tip of the central catheter were seen quite readily in the right atrium. CONCLUSIONS: 1. No vegetations. 2. Presence of a multilumen central venous catheter with the tip at the junction of the superior vena cava with the right atrium. No masses seen attached to the visualized portion of the central venous catheter. 3. Normal left ventricle size and systolic function. 4. Mild aortic valve sclerosis with a three-cusp aortic valve. Mild aortic regurgitation. 5. Small pericardial effusion. No diastolic chamber collapse.
== END 2019-01-17 11:18 | disposition home health service (06) | DRG 206 ==
LOC: M ED 11:26 → M ED INP 19:24 → M PCU 21:25
PROVIDERS: ADMIT Internal Medicine; ATTEND Internal Medicine
PROC: 30233N1 Transfusion of Nonautologous Red Blood Cells into Peripheral Vein, Percutaneous Approach (ICD-10-PCS; 2019-01-14)
PROC: B246ZZ4 Ultrasonography of Right and Left Heart, Transesophageal (ICD-10-PCS; principal; 2019-01-16 12:30)
DX: T82.7XXA Infection and inflammatory reaction due to other cardiac and vascular devices, implants and grafts, initial encounter (principal); R65.20 Severe sepsis without septic shock; I76 Septic arterial embolism; A41.9 Sepsis, unspecified organism; N17.9 Acute kidney failure, unspecified; K91.2 Postsurgical malabsorption, not elsewhere classified; E46 Unspecified protein-calorie malnutrition; K31.84 Gastroparesis; N12 Tubulo-interstitial nephritis, not specified as acute or chronic; F39 Unspecified mood [affective] disorder; F41.9 Anxiety disorder, unspecified; D50.9 Iron deficiency anemia, unspecified; Z66 Do not resuscitate; M54.9 Dorsalgia, unspecified; B00.1 Herpesviral vesicular dermatitis; B96.89 Other specified bacterial agents as the cause of diseases classified elsewhere; K21.9 Gastro-esophageal reflux disease without esophagitis; E86.0 Dehydration; G47.00 Insomnia, unspecified; Z98.84 Bariatric surgery status; Z79.899 Other long term (current) drug therapy; Z79.891 Long term (current) use of opiate analgesic; Z90.49 Acquired absence of other specified parts of digestive tract; Z88.1 Allergy status to other antibiotic agents; Z88.2 Allergy status to sulfonamides; Z88.8 Allergy status to other drugs, medicaments and biological substances; Z91.018 Allergy to other foods; Z88.5 Allergy status to narcotic agent; Z98.1 Arthrodesis status

== ENCOUNTER → 2019-01-11 | Outpatient (CLI) | payer BC, OTHER ==
[~2019-01-11] MED LIST changes: +CEFT2ADD INJ; +FERR1TAB8 PO; +HEPAINJ10 IV
[2019-01-11 10:15] LABS: HEMATOCRIT 30.3 % (36.0-47.0); HEMOGLOBIN 9.2 g/dl (12.0-15.5); MEAN CORPUSCULAR HEMOGLOBIN 24.9 pg (27.0-33.0); MEAN CORPUSCULAR HGB CONC 30.4 g/dl (32.0-36.5); MEAN CORPUSCULAR VOLUME 81.9 fl (80.0-96.0); PLATELET COUNT, AUTOMATED 241 10^3/uL (150-450)
[2019-01-11 10:24] LABS: WHITE BLOOD COUNT 44.9 10^3/uL (4.0-10.0)
[2019-01-11 10:52] LABS: ALBUMIN 2.9 GM/DL (3.2-5.2); BILIRUBIN,TOTAL 3.3 MG/DL (0.2-1.0); CALCIUM LEVEL 6.5 MG/DL (8.5-10.1); CREATININE FOR GFR 2.44 MG/DL (0.55-1.30); GLOMERULAR FILTRATION RATE 23.5 (>60); LYMPHOCYTES 5 % (16-52); MONOCYTES 1 % (0-8); NEUTROPHILS 74 % (35-75); PLATELET ESTIMATE NORMAL (NORMAL); POTASSIUM SERUM 4.3 MEQ/L (3.5-5.1); TOTAL PROTEIN 5.9 GM/DL (6.4-8.2)
[2019-01-11 10:53] LABS: ANISOCYTOSIS 1+; MICROCYTOSIS 1+; OVALOCYTES 1+; POIKILOCYTOSIS 1+; TOXIC GRANULATION 1+
== END ==
LOC: M WUC 09:12 → M LAB 09:48
PROVIDERS: ATTEND Physician Assistant
DX: R11.2 Nausea with vomiting, unspecified (principal)

== ENCOUNTER → 2019-01-20 | Outpatient (REF) | payer OTHER ==
[~2019-01-20] MED LIST changes: -/ACETCOD2T PO; -/ONDA4TA PO; -/ONDA4TA SL; -/QUET25TA PO; +ACET1TAB15 PO; +AUGM875T28 PO; +CEFT2ADD INJ; -ENOX40SY; +FENT12DI12 TD; -FENT12PA TD; +FENT25DI33 TD; -FENT25PA TD; +FENT50DI33 TD; -FENT50PA TD; +FERR1TAB8 PO; +HEPAINJ10 IV; +HYDR-3715 PO; +LOVE1INJ; -NORCOTAB PO; +ONDA-1 PO; +ONDA-1 SL; +SERO1TAB3 PO; +VENL-65 PO; -VENL75TA3 PO
[2019-01-20 13:40] LABS: HEMATOCRIT 31.1 % (36.0-47.0); HEMOGLOBIN 9.5 g/dl (12.0-15.5); MEAN CORPUSCULAR HEMOGLOBIN 26.2 pg (27.0-33.0); MEAN CORPUSCULAR HGB CONC 30.5 g/dl (32.0-36.5); MEAN CORPUSCULAR VOLUME 85.7 fl (80.0-96.0); PLATELET COUNT, AUTOMATED 484 10^3/uL (150-450); RED BLOOD COUNT 3.63 10^6/uL (4.00-5.40); WHITE BLOOD COUNT 5.4 10^3/uL (4.0-10.0)
[2019-01-20 14:08] LABS: ALBUMIN 2.7 GM/DL (3.2-5.2); ALT/SGPT 12 U/L (12-78); BILIRUBIN,TOTAL 0.4 MG/DL (0.2-1.0); BLOOD UREA NITROGEN 4 MG/DL (7-18); C REACTIVE PROTEIN QUANTITATIV 2.19 MG/DL (0.00-0.30); CALCIUM LEVEL 7.9 MG/DL (8.5-10.1); CARBON DIOXIDE LEVEL 27 MEQ/L (21-32); CHLORIDE LEVEL 106 MEQ/L (98-107); CREATININE FOR GFR 0.64 MG/DL (0.55-1.30); GLOMERULAR FILTRATION RATE > 60.0 (>60); GLUCOSE, FASTING 78 MG/DL (70-100); POTASSIUM SERUM 4.7 MEQ/L (3.5-5.1); SODIUM LEVEL 138 MEQ/L (136-145); TOTAL PROTEIN 5.7 GM/DL (6.4-8.2)
[2019-01-20 14:48] LABS: ERYTHROCYTE SEDIMENTATION RATE 44 mm/hr (0-20)
== END ==
LOC: M LAB REF 12:40
PROVIDERS: ATTEND Internal Medicine Infectious Disease
DX: I26.90 Septic pulmonary embolism without acute cor pulmonale (principal)

== ENCOUNTER → 2019-01-20 | Outpatient (REF) | payer OTHER ==
[~2019-01-20] MED LIST changes: -NORC1TAB4 PO; +NORC1TAB7 PO; -PEPC1TAB2 PO; +PEPC40TA12 PO; +SENN-84; -[UNRECOGNIZED DRUG - CODE]
[2019-01-21 17:55] LABS: MAGNESIUM LEVEL 2.1 MG/DL (1.8-2.4); PHOSPHORUS LEVEL 4.6 MG/DL (2.5-4.9)
== END ==
LOC: M LAB REF 17:39
PROVIDERS: ATTEND Internal Medicine Gastroenterology
DX: K31.84 Gastroparesis (principal)

== ENCOUNTER → 2019-01-23 | Outpatient (CLI) | payer BC, OTHER ==
--- NOTE | 2019-02-10 00:47 | ECWPNPC ---
PATIENT NAME: NI RICHMOND : 1980 GENDER: FEMALE VISIT DATE: 01/23/2019 DISCHARGE DATE: 01/23/19937 VISIT LOCKED DATE TIME: PHYSICIAN: JA CANO RESOURCE: JA CANO REASON FOR APPOINTMENT 1. ABDOMEN HISTORY OF PRESENT ILLNESS HISTORY OF PRESENT ILLNESS: HERE FOR F/U OF CHRONIC ABDOMINAL PAIN WITH HISTORY OF MULTIPLE HOSPITALIZATIONS FOR COMPLICATIONS OF GASTRIC BYPASS IN 2008.RECENT HOSPITALIZATION FOR SEPSIS ASSOCIATED WITH KIDNEY INFECTION.RATING ABDOMINAL PAIN 4-8/10 VAS.HAS BEEN OFF LIQUID MORPHINE AND IS ON PERCOCET SINCE HOSPITAL STAY.STATES ITS HELPING WITH PAIN.RATING PAIN VAS 3/10. PAIN THE PATIENT DESCRIBES THE PAIN... THE PATIENT DESCRIBES THE PAIN... FALL RISK SCREENING: SCREENING :NO FALLS REPORTED IN THE LAST YEAR CURRENT MEDICATIONS TAKING ZOFRAN ODT 8 MG TABLET DISPERSIBLE 1 INJECTION INTRAVENOUSLY Q 6 HRS PRN NAUSEA TAKING HYDROXYZINE HCL 10 MG/5ML SYRUP 25 ML NEEDED ORALLY EVERY 6 HRS PRN TAKING FLUOXETINE HCL 20 MG/5ML SOLUTION 5 ML IN THE MORNING ORALLY ONCE A DAY TAKING ONDANSETRON HCL 4 MG TABLET ORALLY FOUR TIMES DAILY NEEDED FOR INTRACTABLE NAUSEA TAKING PROMETHAZINE HCL 25 MG SUPPOSITORY 1 SUPPOSITORY NEEDED RECTAL EVERY 12 HRS NEEDED IF ZOFRAN IN-EFFECTIVE TAKING MORPHINE SULFATE 10 MG/5ML SOLUTION 5 ML NEEDED ORALLY EVERY 4 HRS MDD 30ML TAKING ZOLPIDEM TARTRATE 10 MG TABLET 1 TABLET AT BEDTIME NEEDED ORALLY BEFORE BEDTIME MDD=1, NOTES: PLEASE FILL FOR ADOPTION COUNSELOR 01/15/19 TAKING OXYCODONE HCL 5 MG CAPSULE 1-2 CAPSULE NEEDED ORALLY EVERY 6 HRS TAKING ROCEPHIN NOT-TAKING FLUOXETINE HCL 20 MG CAPSULE 1 CAPSULE ORALLY ONCE A DAY NOT-TAKING AMBIEN CR 12.5 MG TABLET EXTENDED RELEASE 1 TABLET AT BEDTIME NEEDED ORALLY ONCE A DAY. CODE C NOT-TAKING HYDROMORPHONE HCL 4 MG TABLET DIRECTED ORALLY Q8H PRN MDD3 NOT-TAKING AMOXICILLIN-POT CLAVULANATE 875-125 MG TABLET 1 TABLET ORALLY EVERY 12 HRS MEDICATION LIST REVIEWED AND RECONCILED WITH THE PATIENT PAST MEDICAL HISTORY DEPRESSION/ANXIETY HYDRATION ISSUES HX OF MRSA BACK PROBLEM ALLERGIES SULFA (FOR ALLERGY USE ONLY): ANAPHYLAXIS - ALLERGY NSAIDS: GI BLEED - CONTRAINDICATION LEVAQUIN: ANAPHYLAXIS - ALLERGY SURGICAL HISTORY BACK SURGERY DR SU DECOMPRESSION SURGERY 08/2013 TONSILS GASTRIC BYPASS 2008 ENDOMETRIAL ABLATION HYSTERECTOMY HUBBARD CATHETER 05/21/2014 RIGHT LEG WOUND DRAINED-DESIREE 04/2017 LEFT SUBCLAVIAN PORT 10/2017 J-TUBE PLACEMENT AND REMOVAL G-TUBE PLACEMENT 11/2017 SUBCLAVIAN PORT REMOVE 04/2018 PICC LINE 06/2018 SOCIAL HISTORY GENERAL: TOBACCO USE ARE YOU A:NONSMOKER LATEX QUESTIONNAIRE LATEX ALLERGY : HAVE YOU EVER DEVELOPED ANY TYPE OF REACTION AFTER HANDLING LATEX PRODUCTS SUCH RUBBER GLOVES, CONDOMS, DIAPHRAGMS, BALLOONS, SOCKS, OR UNDERWEAR?NO LATEX ALLERGY : HAVE YOU EVER DEVELOPED ANY TYPE OF REACTION DURING OR AFTER DENTAL APPOINTMENT, VAGINAL/RECTAL EXAMINATION, SURGICAL PROCEDURE, OR ANY OTHER EXPOSURE?NO LATEX RISK : HAVE YOU EVER HAD ANY DIFFICULTY BREATHING OR HIVES AFTER EATING OR HANDLING ANY FRUITS, OR VEGETABLES; SUCH KIWI, BANANAS, STONE FRUITS, OR CHESTNUTSNO LATEX RISK : DO YOU HAVE A PREVIOUS PERSONAL HISTORY OF MORE THAN NINE SURGERIES, SPINA BIFIDA, OR REPEATED CATHERTIZATIONS? NO LATEX RISK : ARE YOU FREQUENTLY EXPOSED TO LATEX PRODUCTS IN YOUR OCCUPATION?NO DATE ASKED : 01/06/2019 LUNG CANCER SCREENING SMOKING STATUS:NON SMOKER ALCOHOL SCREENING DID YOU HAVE A DRINK CONTAINING ALCOHOL IN THE PAST YEAR?NO POINTS0 INTERPRETATIONNEGATIVE RECREATIONAL DRUG USE DRUG USE?NO CAFFEINE CAFFEINE USE?NO SEXUAL HX HAD SEX IN THE LAST 12 MONTHS (VAGINAL, ORAL, OR ANAL)?YES WITHMEN ONLY USE PROTECTION?NO PREVENTION STRATEGIES DISCUSSED:OTHER HAVE YOU EVER HAD AN STD?NO PROTESTANT [id number] NONE LANGUAGE LANGUAGES SPOKEN:KAZAKH LEARNING BARRIERS / SPECIAL NEEDS CHANGE FROM LAST VISIT?NO BARRIERS TO LEARNING?NO HEARING IMPAIRED?NO VISION IMPAIRED?NO COGNITIVELY IMPAIRED?NO READINESS TO LEARN?YES LEARNING PREFERENCES?NO LEARNING CAPABILITIES PRESENT?YES EMOTIONAL BARRIERS?NO SPECIAL DEVICES?NO MEAT HANGER NEEDED?NO DOMESTIC VIOLENCE DO YOU FEEL SAFE IN YOUR ENVIRONMENT?YES DIET: ALL NUTRITION THROUGH PICC LINE. EXERCISE: WALKS. MARITAL STATUS: . PAIN CLINIC PFS, CLERGY, PUBLIC HEALTH REFERRALS PFS REFERRAL NEEDED?NO CLERGY REFERRAL NEEDED?NO PUBLIC HEALTH REFERRAL NEEDED?NO WAS THE PROVIDER NOTIFIED OF ANY PERTINENT INFO?NO HAS THE PATIENT BEEN EDUCATED REGARDING HIS/HER PLAN OF CARE?YES HAS THE PATIENT BEEN EDUCATED REGARDING PAIN, THE RISK FOR PAIN, THE IMPORTANCE OF EFFECTIVE PAIN MANAGEMENT, AND THE PAIN ASSESSMENT PROCESS?YES ADVANCE DIRECTIVE ADVANCE DIRECTIVE DISCUSSED WITH PATIENT:YES HCP - GARTH RICHMOND REVIEWED WITH PATIENT 11/13/18 1417 JSREVIEWED WITH PT 01/23/19 5810 BV. HOSPITALIZATION/MAJOR DIAGNOSTIC PROCEDURE RELATED TO SURGERY G TUBE INFECTION 7 DAYS 10 BLOOD TRANSFUSION 10/2018 [facility] ED- ABDOMINAL PAIN. 12/10/2018 REVIEW OF SYSTEMS REVIEWED BY: PROVIDER: JA DALEY . CONSTITUTIONAL: ANY CHANGE IN YOUR MEDICAL CONDITION? YES, PT IN HOSPITAL JANUARY 11 FOR SEPSIS, RELATED TO KIDNEY INFECTION. CURRENTLY ON ROCEPHIN . CHILLS NO . FEVER NO . INFECTION: DO YOU HAVE NEW INFECTIONS? YES, CURRENTLY ON ROCEPHIN, SEE ABOVE. . DO YOU HAVE HISTORY OF MRSA? YES . MUSCULOSKELETAL: ANY NEW PATTERNS OF PAIN OR NUMBNESS? NO . GASTROENTEROLOGY: ANY NEW CHANGE IN BOWEL CONTROL? NO . GENITOURINARY: ANY NEW CHANGE IN BLADDER CONTROL? NO . IS THERE A CHANCE YOU COULD BE ? NO . HEMATOLOGY/LYMPH: DO YOU TAKE ANY BLOOD THINNERS? (FOR EXAMPLE- COUMADIN, PLAVIX, AGGRENOX, PLATEL, PRADAXA, OR XARELTO) NO . WHEN WAS YOUR LAST DOSE? DATE: TIME: . NEUROLOGY: HAVE YOU FALLEN IN THE PAST 12 MONTHS? NO . ANY NEW EXTREMITY NUMBNESS OR WEAKNESS? NO . CARDIOLOGY: DO YOU HAVE A PACEMAKER OR DEFIBRILLATOR? NO . RESPIRATORY: HAVE YOU BEEN SICK IN THE PAST WEEK? YES . FEVER NO . FLU LIKE SYMPTOMS? NO . COUGH NO . INTEGUMENTARY: DO YOU HAVE ANY RASHES OR OPEN SORES? NO . ALLERGIC/IMMUNO: ARE YOU ALLERGIC TO IV DYE? NO . ANY NEW ALLERGIES? NO . PSYCHIATRIC: DO YOU HAVE THOUGHTS OF HURTING YOURSELF OR SOMEONE ELSE? NO . ARE YOU ABUSED, NEGLECTED, OR IN AN UNSAFE ENVIRONMENT? NO . ENDOCRINOLOGY: ARE YOU DIABETIC? NO . OTHER: DO YOU NEED ANY PRESCRIPTIONS? YES, WANTS TO DISCUSS . IF YES, PLEASE LIST: ____ . ANY NEW PROBLEMS WITH YOUR MEDICATIONS? NO . WHEN DID YOU LAST EAT? ____ . WHEN DID YOU LAST DRINK? ____ . WHAT DID YOU LAST DRINK? ____ . NAME OF PERSON DRIVING YOU HOME? ____ . DO YOU HAVE ANY OTHER QUESTIONS OR CONCERNS NO . VITAL SIGNS WT 146.2 LBS, HT 66 IN, BMI 23.59 INDEX, BP 117/61 MM HG, HR 95 /MIN, RR 18 /MIN, TEMP 96.6 F, OXYGEN SAT % 97%, NA INITIALS AW 0841, REVIEWED BY: BV. EXAMINATION GENERAL EXAMINATION: GENERAL APPEARANCE:AWAKE,ALERT ,PLEAASANT . PSYCHAFFECT NORMAL . LUNGS:LUNG GARCIA ARE CLEAR TO AUSCULTATION BILATERALLY. GOOD MOVEMENT OF AIR . HEART:S1, S2 IN A REGULAR RATE AND RHYTHM. NO SIGNIFICANT MURMURS, RUBS OR GALLOPS NOTED . ASSESSMENTS GENERALIZED ABDOMINAL PAIN - R10.84 (PRIMARY) CHRONICALLY ON OPIATE THERAPY - Z79.899 TREATMENT GENERALIZED ABDOMINAL PAIN STOP MORPHINE SULFATE SOLUTION, 10 MG/5ML, 5 ML NEEDED, ORALLY, EVERY 4 HRS MDD 30ML START OXYCODONE HCL TABLET, 5 MG, 1-2 TAB, ORALLY, EVERY 6 HRS MDD8, 30 DAY(S), 240, REFILLS 0 NOTES: ISTOP REGISTRY REVIEWED AND DEMONSTRATES COMPLLIANCE. (REF # ) BRINGS IN MEDICATIONS WHICH IS APPROPRIATE FOR WHAT WAS DISPENSED. RECENT URINE TOXICOLOGY REVIEWED. NO UNAUTHORIZED MEDICATIONS. NO ILLICIT SUBSTANCES AND PRESCRIBED MEDICATIONS WERE PRESENT. , RISKS AND BENEFITS OF NARCOTIC/OPIOD MEDICATIONS WERE REVIEWED WITH PATIENT - THIS INCLUDES BUT IS NOT LIMITED TO RISK OF DEPENDANCE/DEVELOPMENT OF ADDICTION, MOOD DISTURBANCE AND DEPRESSION, OSTEOPOROSIS, HORMONAL AND LABIDAL CHANGES, RESPIRATORY DEPRESSION AND . PATIENT IS ADVISED NOT TO DRIVE OR DRINK ALCOHOL WHILE ON THESE MEDICATIONS. PROCEDURE CODES FA211 ESTABILISHED PATIENT [facility] CHARGE DISPOSITION & COMMUNICATION FOLLOW UP 6 WEEKS ELECTRONICALLY SIGNED BY EDI DOSHI ON 02/09/2019 AT 04:52 PM EDT DISCLAIMER : THIS IS A VISIT SUMMARY EXTRACTED FROM THE [employer] CHART. IT IS NOT A COPY OF THE [employer] PROGRESS NOTE. HAILEY
== END ==
LOC: M PAIN 08:30
PROVIDERS: ATTEND Nurse Practitioner Family
DX: R10.84 Generalized abdominal pain (principal); G89.29 Other chronic pain; Z86.59 Personal history of other mental and behavioral disorders; Z86.14 Personal history of Methicillin resistant Staphylococcus aureus infection; Z98.84 Bariatric surgery status; Z88.1 Allergy status to other antibiotic agents; Z88.2 Allergy status to sulfonamides; Z88.6 Allergy status to analgesic agent; Z79.899 Other long term (current) drug therapy

== ENCOUNTER → 2019-01-27 | Outpatient (REF) | payer OTHER ==
[2019-01-27 18:13] LABS: APPEARANCE, URINE CLEAR (CLEAR); BACTERIA, URINE AUTO NEGATIVE (NEGATIVE); BILIRUBIN, URINE AUTO NEGATIVE (NEGATIVE); BLOOD, URINE BLOOD 3+ (NEGATIVE); COLOR, URINE RED (YELLOW); GLUCOSE, URINE (UA) AUTO NEGATIVE (NEGATIVE); KETONE, URINE AUTO NEGATIVE (NEGATIVE); LEUKOCYTE ESTERASE, URINE AUTO NEGATIVE (NEGATIVE); NITRITE, URINE AUTO NEGATIVE (NEGATIVE); PROTEIN, URINE AUTO 2+ mg/dL (NEGATIVE); RBC, URINE AUTO TNTC /HPF (0-3); SPECIFIC GRAVITY URINE AUTO 1.005 (1.002-1.035); SQUAMOUS EPITHELIAL CELL UR AU 1 /HPF (0-6); UROBILINOGEN, URINE AUTO 0.2 mg/dL (0.0-2.0); WBC, URINE AUTO 1 /HPF (0-3)
[2019-01-31 00:07] LABS: ANGIOTENSIN 1 CONVERTING ENZYM 41 U/L (14-82)
== END ==
LOC: M LAB REF 16:21
PROVIDERS: ATTEND Family Medicine
DX: R31.0 Gross hematuria (principal); A41.9 Sepsis, unspecified organism; R91.8 Other nonspecific abnormal finding of lung field

== ENCOUNTER → 2019-01-27 | Outpatient (REF) | payer OTHER ==
[2019-01-27 18:01] LABS: BASO # 0.1 10^3/uL (0.0-0.2); BASO % 1.6 % (0.0-1.0); EOS # 0.2 10^3/uL (0.0-0.50); EOS % 2.6 % (0.0-3.0); HEMATOCRIT 37.5 % (36.0-47.0); HEMOGLOBIN 11.1 g/dl (12.0-15.5); LYMPH % 32.8 % (24.0-44.0); MEAN CORPUSCULAR HEMOGLOBIN 25.7 pg (27.0-33.0); MEAN CORPUSCULAR HGB CONC 29.6 g/dl (32.0-36.5); MEAN CORPUSCULAR VOLUME 86.8 fl (80.0-96.0); MONO # 0.7 10^3/uL (0.0-0.8); MONO % 12.1 % (0.0-5.0); NEUTROPHILS # 3.1 10^3/uL (1.8-7.7); NEUTROPHILS % 50.4 % (36.0-66.0); PLATELET COUNT, AUTOMATED 420 10^3/uL (150-450); RED BLOOD COUNT 4.32 10^6/uL (4.00-5.40); WHITE BLOOD COUNT 6.1 10^3/uL (4.0-10.0)
[2019-01-27 18:29] LABS: ALBUMIN 3.4 GM/DL (3.2-5.2); ALT/SGPT 20 U/L (12-78); BILIRUBIN,TOTAL 0.3 MG/DL (0.2-1.0); BLOOD UREA NITROGEN 5 MG/DL (7-18); CALCIUM LEVEL 9.2 MG/DL (8.5-10.1); CARBON DIOXIDE LEVEL 30 MEQ/L (21-32); CHLORIDE LEVEL 100 MEQ/L (98-107); CREATININE FOR GFR 0.63 MG/DL (0.55-1.30); GLOMERULAR FILTRATION RATE > 60.0 (>58); GLUCOSE, FASTING 86 MG/DL (70-100); MAGNESIUM LEVEL 2.1 MG/DL (1.8-2.4); PHOSPHORUS LEVEL 4.5 MG/DL (2.5-4.9); POTASSIUM SERUM 4.5 MEQ/L (3.5-5.1); SODIUM LEVEL 136 MEQ/L (136-145); TOTAL PROTEIN 6.7 GM/DL (6.4-8.2)
== END ==
LOC: M LAB REF 16:19
PROVIDERS: ATTEND Internal Medicine Gastroenterology
DX: K31.84 Gastroparesis (principal)

== ENCOUNTER → 2019-02-02 | Outpatient (REF) | payer OTHER ==
[2019-02-02 14:57] LABS: BASO # 0.1 10^3/uL (0.0-0.2); BASO % 0.9 % (0.0-1.0); EOS % 0.5 % (0.0-3.0); HEMATOCRIT 39.3 % (36.0-47.0); HEMOGLOBIN 12.2 g/dl (12.0-15.5); LYMPH # 1.4 10^3/uL (1.5-4.5); LYMPH % 17.8 % (24.0-44.0); MEAN CORPUSCULAR VOLUME 83.8 fl (80.0-96.0); MONO # 0.5 10^3/uL (0.0-0.8); NEUTROPHILS # 5.5 10^3/uL (1.8-7.7); NEUTROPHILS % 73.3 % (36.0-66.0); PLATELET COUNT, AUTOMATED 398 10^3/uL (150-450); RED BLOOD COUNT 4.69 10^6/uL (4.00-5.40); WHITE BLOOD COUNT 7.6 10^3/uL (4.0-10.0)
[2019-02-02 15:13] LABS: ALT/SGPT 34 U/L (12-78); BILIRUBIN,TOTAL 0.7 MG/DL (0.2-1.0); BLOOD UREA NITROGEN 6 MG/DL (7-18); CALCIUM LEVEL 9.4 MG/DL (8.5-10.1); CARBON DIOXIDE LEVEL 27 MEQ/L (21-32); CHLORIDE LEVEL 107 MEQ/L (98-107); CREATININE FOR GFR 0.58 MG/DL (0.55-1.30); GLOMERULAR FILTRATION RATE > 60.0 (>58); GLUCOSE, FASTING 120 MG/DL (70-100); PHOSPHORUS LEVEL 3.3 MG/DL (2.5-4.9); POTASSIUM SERUM 3.6 MEQ/L (3.5-5.1); SODIUM LEVEL 141 MEQ/L (136-145); TOTAL PROTEIN 7.6 GM/DL (6.4-8.2)
== END ==
LOC: M LAB REF 14:44
PROVIDERS: ATTEND Internal Medicine Gastroenterology
DX: K31.84 Gastroparesis (principal)

== ENCOUNTER → 2019-02-02 | Outpatient (REF) | payer OTHER ==
[2019-02-02 14:59] LABS: HEMATOCRIT 39.3 % (36.0-47.0); HEMOGLOBIN 12.2 g/dl (12.0-15.5); MEAN CORPUSCULAR VOLUME 83.8 fl (80.0-96.0); RED BLOOD COUNT 4.69 10^6/uL (4.00-5.40); WHITE BLOOD COUNT 7.6 10^3/uL (4.0-10.0)
[2019-02-02 15:00] LABS: PLATELET COUNT, AUTOMATED 398 10^3/uL (150-450)
[2019-02-02 15:21] LABS: ALT/SGPT 34 U/L (12-78); BILIRUBIN,TOTAL 0.7 MG/DL (0.2-1.0); BLOOD UREA NITROGEN 6 MG/DL (7-18); C REACTIVE PROTEIN QUANTITATIV < 0.30 MG/DL (0.00-0.30); CALCIUM LEVEL 9.5 MG/DL (8.5-10.1); CARBON DIOXIDE LEVEL 27 MEQ/L (21-32); CHLORIDE LEVEL 108 MEQ/L (98-107); CREATININE FOR GFR 0.57 MG/DL (0.55-1.30); GLOMERULAR FILTRATION RATE > 60.0 (>58); GLUCOSE, FASTING 119 MG/DL (70-100); POTASSIUM SERUM 3.6 MEQ/L (3.5-5.1); SODIUM LEVEL 140 MEQ/L (136-145); TOTAL PROTEIN 7.5 GM/DL (6.4-8.2)
[2019-02-02 15:26] LABS: ERYTHROCYTE SEDIMENTATION RATE 30 mm/hr (0-20)
== END ==
LOC: M LAB REF 14:42
PROVIDERS: ATTEND Internal Medicine Infectious Disease
DX: I76 Septic arterial embolism (principal)

== ENCOUNTER → 2019-02-07 | Outpatient (REF) | payer BC, OTHER | LOC: M LAB REF 11:52 | PROVIDERS: ATTEND Internal Medicine Pulmonary Disease | DX: R91.8 Other nonspecific abnormal finding of lung field (principal) ==

== ENCOUNTER → 2019-02-09 | Outpatient (REF) | payer OTHER ==
[2019-02-09 12:35] LABS: BASO % 0.7 % (0.0-1.0); EOS # 0.2 10^3/uL (0.0-0.50); EOS % 4.1 % (0.0-3.0); HEMATOCRIT 37.7 % (36.0-47.0); HEMOGLOBIN 11.5 g/dl (12.0-15.5); LYMPH # 1.3 10^3/uL (1.5-4.5); LYMPH % 22.6 % (24.0-44.0); MEAN CORPUSCULAR HEMOGLOBIN 25.8 pg (27.0-33.0); MEAN CORPUSCULAR HGB CONC 30.5 g/dl (32.0-36.5); MEAN CORPUSCULAR VOLUME 84.7 fl (80.0-96.0); MONO # 0.5 10^3/uL (0.0-0.8); MONO % 8.6 % (0.0-5.0); NEUTROPHILS # 3.7 10^3/uL (1.8-7.7); NEUTROPHILS % 63.5 % (36.0-66.0); PLATELET COUNT, AUTOMATED 307 10^3/uL (150-450); RED BLOOD COUNT 4.45 10^6/uL (4.00-5.40); WHITE BLOOD COUNT 5.8 10^3/uL (4.0-10.0)
[2019-02-09 13:22] LABS: ALBUMIN 3.7 GM/DL (3.2-5.2); ALT/SGPT 17 U/L (12-78); BILIRUBIN,TOTAL 0.5 MG/DL (0.2-1.0); BLOOD UREA NITROGEN 9 MG/DL (7-18); C REACTIVE PROTEIN QUANTITATIV 0.53 MG/DL (0.00-0.30); CALCIUM LEVEL 8.9 MG/DL (8.5-10.1); CARBON DIOXIDE LEVEL 27 MEQ/L (21-32); CHLORIDE LEVEL 106 MEQ/L (98-107); CREATININE FOR GFR 0.75 MG/DL (0.55-1.30); GLOMERULAR FILTRATION RATE > 60.0 (>58); GLUCOSE, FASTING 89 MG/DL (70-100); MAGNESIUM LEVEL 2.2 MG/DL (1.8-2.4); PHOSPHORUS LEVEL 3.9 MG/DL (2.5-4.9); POTASSIUM SERUM 4.2 MEQ/L (3.5-5.1); SODIUM LEVEL 140 MEQ/L (136-145); TOTAL PROTEIN 6.8 GM/DL (6.4-8.2)
[2019-02-09 22:14] LABS: ERYTHROCYTE SEDIMENTATION RATE 15 mm/hr (0-20)
== END ==
LOC: M LAB REF 12:14
PROVIDERS: ATTEND Internal Medicine Infectious Disease
DX: I26.90 Septic pulmonary embolism without acute cor pulmonale (principal)

== ENCOUNTER → 2019-02-12 | Outpatient (REF) | payer OTHER | LOC: M SFHCPLAZ 15:07 | PROVIDERS: ATTEND Family Medicine | DX: R31.0 Gross hematuria (principal) ==

== ENCOUNTER → 2019-02-17 | Outpatient (REF) | payer OTHER ==
[2019-02-17 12:53] LABS: BASO # 0.1 10^3/uL (0.0-0.2); BASO % 0.8 % (0.0-1.0); EOS # 0.1 10^3/uL (0.0-0.50); EOS % 1.7 % (0.0-3.0); HEMATOCRIT 29.6 % (36.0-47.0); HEMOGLOBIN 9.2 g/dl (12.0-15.5); LYMPH # 1.6 10^3/uL (1.5-4.5); LYMPH % 24.8 % (24.0-44.0); MEAN CORPUSCULAR HEMOGLOBIN 26.5 pg (27.0-33.0); MEAN CORPUSCULAR HGB CONC 31.1 g/dl (32.0-36.5); MEAN CORPUSCULAR VOLUME 85.3 fl (80.0-96.0); MONO # 0.4 10^3/uL (0.0-0.8); MONO % 6.4 % (0.0-5.0); NEUTROPHILS # 4.2 10^3/uL (1.8-7.7); PLATELET COUNT, AUTOMATED 318 10^3/uL (150-450); RED BLOOD COUNT 3.47 10^6/uL (4.00-5.40); WHITE BLOOD COUNT 6.3 10^3/uL (4.0-10.0)
[2019-02-17 12:56] LABS: ALBUMIN 3.6 GM/DL (3.2-5.2); ALT/SGPT 19 U/L (12-78); BILIRUBIN,TOTAL 0.8 MG/DL (0.2-1.0); BLOOD UREA NITROGEN 7 MG/DL (7-18); CALCIUM LEVEL 8.7 MG/DL (8.5-10.1); CARBON DIOXIDE LEVEL 25 MEQ/L (21-32); CHLORIDE LEVEL 108 MEQ/L (98-107); GLOMERULAR FILTRATION RATE > 60.0 (>58); GLUCOSE, FASTING 116 MG/DL (70-100); MAGNESIUM LEVEL 2.1 MG/DL (1.8-2.4); POTASSIUM SERUM 3.7 MEQ/L (3.5-5.1); SODIUM LEVEL 141 MEQ/L (136-145); TOTAL PROTEIN 6.4 GM/DL (6.4-8.2)
== END ==
LOC: M LAB REF 11:46
PROVIDERS: ATTEND Internal Medicine Gastroenterology
DX: K31.84 Gastroparesis (principal)

== ENCOUNTER → 2019-02-19 | Outpatient (REF) | payer OTHER | LOC: M SFHCPLAZ 09:40 | PROVIDERS: ATTEND Internal Medicine Infectious Disease | DX: A41.9 Sepsis, unspecified organism (principal) ==

== ENCOUNTER → 2019-02-20 | Outpatient (CLI) | payer BC, OTHER ==
--- NOTE | 2019-02-20 15:09 | REP ---
REASON FOR EXAMINATION: Assess for digestive tract foreign body. COMPARISON EXAMINATION: 10/07/2018, with the latest two-view chest being 01/11/2019. The frontal view of the chest shows a V-shaped radiodensity in the midline superimposed over the 10th and 11th thoracic vertebral bodies. This was not present on the prior chest radiograph. The curvilinear radiodensity seen on the chest, consistent with a catheter, is unchanged. The heart is not enlarged. The lung snell are otherwise clear. There is no evidence of free intraperitoneal air. The bowel loops are within normal limits. Scattered surgical clips and alvarado are seen about the abdomen and upper pelvis. Unchanged transpedicular screw placement is again seen bilaterally, L4, L5, and S1, status quo, with graft material seen at the respective disc spaces, all stable. IMPRESSION: There is a new V-shaped metallic-appearing radiodensity in the lower chest/upper abdomen, midline, as described above. The maximal superior to inferior measurement is 5.6 cm with each limb having a maximal thickness of 2 mm, but since this is a V-shaped radiodensity, the widest portion measures 2.8 cm. Other findings as described above. Electronically Signed by Jesus Hadley DO 02/20/2019 04:38 P
== END ==
LOC: M RAD 09:53
PROVIDERS: ATTEND Internal Medicine Gastroenterology
DX: T18.9XXA Foreign body of alimentary tract, part unspecified, initial encounter (principal); X58.XXXA Exposure to other specified factors, initial encounter; D50.9 Iron deficiency anemia, unspecified

== ENCOUNTER → 2019-02-20 | Outpatient (REF) | payer OTHER ==
[2019-02-20 17:38] LABS: APPEARANCE, URINE CLOUDY (CLEAR); BACTERIA, URINE AUTO NEGATIVE (NEGATIVE); BILIRUBIN, URINE AUTO NEGATIVE (NEGATIVE); BLOOD, URINE BLOOD 3+ (NEGATIVE); COLOR, URINE YELLOW (YELLOW); GLUCOSE, URINE (UA) AUTO NEGATIVE (NEGATIVE); KETONE, URINE AUTO NEGATIVE (NEGATIVE); LEUKOCYTE ESTERASE, URINE AUTO NEGATIVE (NEGATIVE); NITRITE, URINE AUTO NEGATIVE (NEGATIVE); PROTEIN, URINE AUTO 1+ mg/dL (NEGATIVE); RBC, URINE AUTO TNTC /HPF (0-3); SPECIFIC GRAVITY URINE AUTO 1.027 (1.002-1.035); SQUAMOUS EPITHELIAL CELL UR AU 4 /HPF (0-6); UROBILINOGEN, URINE AUTO 0.2 mg/dL (0.0-2.0); WBC, URINE AUTO 0 /HPF (0-3)
== END ==
LOC: M SMT 16:55
PROVIDERS: ATTEND Nurse Practitioner Women's Health
DX: R31.0 Gross hematuria (principal)

== ENCOUNTER → 2019-02-23 | Outpatient (REF) | payer OTHER | LOC: M LAB REF 08:56 | PROVIDERS: ATTEND Internal Medicine Infectious Disease | DX: A41.9 Sepsis, unspecified organism (principal) ==

== ENCOUNTER → 2019-02-23 | Outpatient (REF) | payer OTHER ==
[2019-02-23 09:57] LABS: BASO % 0.2 % (0.0-1.0); EOS # 0.2 10^3/uL (0.0-0.50); EOS % 2.1 % (0.0-3.0); HEMATOCRIT 30.4 % (36.0-47.0); HEMOGLOBIN 9.3 g/dl (12.0-15.5); LYMPH # 0.7 10^3/uL (1.5-4.5); LYMPH % 8.3 % (24.0-44.0); MEAN CORPUSCULAR HEMOGLOBIN 26.5 pg (27.0-33.0); MEAN CORPUSCULAR HGB CONC 30.6 g/dl (32.0-36.5); MEAN CORPUSCULAR VOLUME 86.6 fl (80.0-96.0); MONO # 0.6 10^3/uL (0.0-0.8); MONO % 7.3 % (0.0-5.0); NEUTROPHILS # 7.2 10^3/uL (1.8-7.7); NEUTROPHILS % 81.5 % (36.0-66.0); PLATELET COUNT, AUTOMATED 210 10^3/uL (150-450); RED BLOOD COUNT 3.51 10^6/uL (4.00-5.40); WHITE BLOOD COUNT 8.8 10^3/uL (4.0-10.0)
[2019-02-23 10:04] LABS: ALBUMIN 3.2 GM/DL (3.2-5.2); ALT/SGPT 75 U/L (12-78); BILIRUBIN,TOTAL 1.1 MG/DL (0.2-1.0); BLOOD UREA NITROGEN 3 MG/DL (7-18); CALCIUM LEVEL 8.2 MG/DL (8.5-10.1); CARBON DIOXIDE LEVEL 29 MEQ/L (21-32); CHLORIDE LEVEL 105 MEQ/L (98-107); CREATININE FOR GFR 0.63 MG/DL (0.55-1.30); GLOMERULAR FILTRATION RATE > 60.0 (>58); GLUCOSE, FASTING 110 MG/DL (70-100); MAGNESIUM LEVEL 2.1 MG/DL (1.8-2.4); PHOSPHORUS LEVEL 3.7 MG/DL (2.5-4.9); SODIUM LEVEL 140 MEQ/L (136-145); TOTAL PROTEIN 6.1 GM/DL (6.4-8.2)
== END ==
LOC: M LAB REF 09:17
PROVIDERS: ATTEND Internal Medicine Gastroenterology
DX: K31.84 Gastroparesis (principal)

== ENCOUNTER → 2019-03-17 | Outpatient (REF) | payer OTHER ==
[~2019-03-17] MED LIST changes: +ALBU83IN INH; +BREO1INH INH; +VENTAER INH; +ZOLP6.25 PO
[2019-03-17 12:18] LABS: BASO # 0.1 10^3/uL (0.0-0.2); BASO % 0.9 % (0.0-1.0); EOS # 0.3 10^3/uL (0.0-0.50); EOS % 4.9 % (0.0-3.0); HEMATOCRIT 29.2 % (36.0-47.0); HEMOGLOBIN 8.8 g/dl (12.0-15.5); LYMPH # 2.1 10^3/uL (1.5-4.5); LYMPH % 29.5 % (24.0-44.0); MEAN CORPUSCULAR HEMOGLOBIN 24.7 pg (27.0-33.0); MEAN CORPUSCULAR HGB CONC 30.1 g/dl (32.0-36.5); MONO # 0.5 10^3/uL (0.0-0.8); MONO % 7.3 % (0.0-5.0); NEUTROPHILS % 57.3 % (36.0-66.0); PLATELET COUNT, AUTOMATED 328 10^3/uL (150-450); RED BLOOD COUNT 3.56 10^6/uL (4.00-5.40); WHITE BLOOD COUNT 6.9 10^3/uL (4.0-10.0)
[2019-03-17 13:18] LABS: ALBUMIN 3.7 GM/DL (3.2-5.2); ALT/SGPT 13 U/L (12-78); BILIRUBIN,TOTAL 0.6 MG/DL (0.2-1.0); BLOOD UREA NITROGEN 5 MG/DL (7-18); CALCIUM LEVEL 8.5 MG/DL (8.5-10.1); CARBON DIOXIDE LEVEL 22 MEQ/L (21-32); CHLORIDE LEVEL 106 MEQ/L (98-107); CREATININE FOR GFR 0.69 MG/DL (0.55-1.30); GLOMERULAR FILTRATION RATE > 60.0 (>58); GLUCOSE, FASTING 163 MG/DL (70-100); MAGNESIUM LEVEL 2.3 MG/DL (1.8-2.4); PHOSPHORUS LEVEL 3.4 MG/DL (2.5-4.9); POTASSIUM SERUM 4.1 MEQ/L (3.5-5.1); SODIUM LEVEL 141 MEQ/L (136-145); TOTAL PROTEIN 7.2 GM/DL (6.4-8.2)
== END ==
LOC: M LAB REF 11:21
PROVIDERS: ATTEND Internal Medicine Gastroenterology
DX: K31.84 Gastroparesis (principal)

== ENCOUNTER 2019-03-18 06:34 | Inpatient (IN) | payer BC, OTHER ==
[~2019-03-18] VITALS: Ht 170.2 cm; Wt 66.7 kg
[~2019-03-18 06:34] MED LIST changes: -ALBU83IN INH; -BREO1INH INH; -VENTAER INH; -ZOLP6.25 PO
--- NOTE | 2019-03-18 09:10 | REP ---
Limited Doppler ultrasound right internal jugular and subclavian veins: History: Status post port placement right internal jugular vein with swelling and pain and port dysfunction. Rule out thrombosis. Sonographic findings: The port catheter seen entering the internal jugular vein near its junction with subclavian vein. There is thrombus visible in the mid internal jugular vein extending into the subclavian vein. The internal jugular vein thrombus is occlusive. There appears to be some limited flow around the thrombus in the subclavian vein. 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 The IJ appears to be occluded. The subclavian vein flow is restricted. Electronically Signed by Adrian Valdez MD 03/18/2019 09:56 A
[2019-03-18] MEDS ORDERED: BREO1INH INH (09:50)
[2019-03-18] MEDS ORDERED: CEFT2ADD INJ (09:50)
[2019-03-18] MEDS ORDERED: VENTAER INH (09:50)
[2019-03-18] MEDS ORDERED: ALBU83IN INH (09:50)
[2019-03-18] MEDS ORDERED: ZOLP6.25 PO (09:50)
[2019-03-18] MEDS ORDERED: OXYC-517 PO (09:50)
--- NOTE | 2019-03-18 09:54 | CR.PDOC ---
General Date of Consultation: March 18, [address] Trevizo. Attending Dr Gonzalez PCP Dr Martha Simmons ID Dr Orozco HPI: 39 year old F who was scheduled at interventional radiology with Dr. 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 The IJ appears to be occluded. Admission to the hospitalist services arranged. Denies any fevers, chills, Headache, Chest Pain, Shortness of breath, cough, palpitations, abdominal pain, N/V/D or changes in bowel or bladder habits. 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 History of pulmonary nodules, following with Dr. Chakraborty at Pulmonary. History of hematuria, recently referred to urology for cystoscopy. H/O GI Bleeding DEPRESSION/ANXIETY HX OF MRSA BACK Pain SURGICAL HISTORY BACK SURGERY DR SU DECOMPRESSION SURGERY 08/2013 Tonsillectomy GASTRIC BYPASS 2008 ENDOMETRIAL ABLATION HYSTERECTOMY HUBBARD CATHETER 05/21/2014 RIGHT LEG WOUND DRAINED-DESIREE 04/2017 LEFT SUBCLAVIAN PORT 10/2017 J-TUBE PLACEMENT AND REMOVAL G-TUBE PLACEMENT 11/2017 SUBCLAVIAN PORT REMOVE 04/2018 PICC LINE 06/2018 SOCHX: Tobacco use: denies ETOH: denies Illicit Drugs: Denies FAMHX: FH of Crohns disease ROS: As noted in HPI, otherwise 11pt ROS of systems reviewed and unremarkable. PE: GEN: 39yoF, appears stated age. No acute distress. HEENT: Normocephalic, atraumatic. Sclera are nonicteric. Conjunctiva without injection. Nose midline. Moist mucous membranes. CHEST: Regular rate and rhythm, +S1, +S2 LUNGS: Clear to auscultation bilaterally. No wheezes, rales, or rhonchi. ABD: Round, soft, non-tender, non-distended. +Bowel sounds throughout. EXT: No lower extremity edema appreciated. SKIN: [place], dry, warm. No rashes. NEURO: Alert and oriented x 3. No focal deficits appreciated. 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 The IJ appears to be occluded. The subclavian vein flow is restricted. Unreviewed A&P: 39 year old F who was scheduled at interventional radiology with Dr. 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 The IJ appears to be occluded. Admission to the hospitalist services arranged. 1. Right IJ catheter, The pt is reviewed and examined as per Dr Trevizo. Ultrasound was requested indicating catheter related thrombosis of the right internal jugular vein and subclavian vein. The IJ appears to be occluded. The patient is unable to take anticoagulation related to previous history of GI bleeding. The patient also has a recent history of line infection/sepsis which has been followed by Dr. Orozco. Have spoken with the hospitalist service, Dr Gonzalez will be admitting provider. Recommended consultation with infectious disease for further recommendations. the pt will need further recommendations for long-term plan regarding anticoagulation, access and TPN. 2. Recent history of line infection. Followed by infectious disease, . Last note 02/19/19 indicates the patient was treated for Serratia marcescens sepsis/septic emboli with 4 weeks of Rocephin completed 02/15/19. Further recommendations as per Dr. Orozco. 3. History of GI bleeding. The patient has been unable to take anticoagulation related to this issue. 4. Malabsorption syndrome. Patient is on TPN. 5. Inflammatory bowel disease, possible Crohn's disease. Follows with gastroenterology. MED REC PENDING. Thank you for your consultation. We will continue to follow along with you. Vital Signs/I&O Adm VS pending Laboratory Data Labs 24H Adm labs pending. Allergies Coded Allergies: Sulfa (Sulfonamide Antibiotics) (Verified Allergy, Severe, RESP. PROBLEMS, SWELLING, HIVES, 01/14/19) butorphanol (Verified Allergy, Severe, HIVES/RESP. PROBLEMS (PERCOCET AND TYL#3 OK), 01/14/19) HAS HAD MORPHINE AND DILAUDID IN THE PAST levofloxacin (Verified Allergy, Severe, THROAT SWELLING/HIVES, 01/14/19) tomato (Verified Allergy, Severe, RESP. PROBLEMS, HIVES, 01/14/19) tramadol (Verified Allergy, Severe, SOB - HAS HAD MORPHINE AND DILAUDID IN THE PAST, 01/14/19) scopolamine (Verified Adverse Reaction, Intermediate, VISION LOSS, 01/14/19) NSAIDS (Non-Steroidal Anti-Inflamma (Verified Adverse Reaction, Mild, GASTRIC BYPASS, 01/14/19) Home Medications Scheduled Ceftriaxone Sodium (Ceftriaxone) 2 Gm Vial.port, 2 GM INJ QPM, (Reported) HAS ONE MORE DOSE DUE TODAY, SHE'S NOT SURE IF SHE WAS TO RECEIVE MORE OR NOT. Fluoxetine HCl (Fluoxetine HCl) 20 Mg/5 Ml Liqd, 20 MG PO DAILY, (Reported) Fluticasone/Vilanterol (Breo Ellipta 100-25 Mcg INH) 1 Each Blst.w.dev, 1 PUFF INH DAILY, (Reported) Zolpidem Tartrate (Zolpidem Tartrate ER) 6.25 Mg Tab.mphase, 6.25 MG PO QHS, (Reported) Scheduled PRN Albuterol Sulf (Albuterol Sulfate) 2.5 Mg/3 Ml Vial.neb, 2.5 MG INH Q4H PRN for SHORTNESS OF BREATH, (Reported) Albuterol Sulfate (Ventolin Hfa) 18 Gm Hfa.aer.ad, 2 PUFF INH Q6H PRN for SHORTNESS OF BREATH, (Reported) Hydroxyzine HCl (Hydroxyzine HCl) 10 Mg/5 Ml Syp, 5 ML PO Q12H PRN for ITCHING, (Reported) Ondansetron (Ondansetron HCl 4 mg/2 ml Vial) 4 Mg/2 Ml Inj, 8 MG INJ Q8H PRN for NAUSEA OR VOMITING, (Reported) Oxycodone HCl (Oxycodone HCl) 5 Mg Tablet, 5 MG PO Q6H PRN for PAIN, (Reported) MAY TAKE ONE OR TWO TABLETS Promethazine HCl (Phenadoz) 25 Mg Sup, 25 MG MO Q12H PRN for NAUSEA OR VOMITING, (Reported) Patti Jeffers March 18, 2019 09:54
[2019-03-18 09:56] LABS: HEMATOCRIT 30.4 % (36.0-47.0); HEMOGLOBIN 9.5 g/dl (12.0-15.5); MEAN CORPUSCULAR HEMOGLOBIN 25.5 pg (27.0-33.0); MEAN CORPUSCULAR HGB CONC 31.3 g/dl (32.0-36.5); MEAN CORPUSCULAR VOLUME 81.5 fl (80.0-96.0); PLATELET COUNT, AUTOMATED 309 10^3/uL (150-450); RED BLOOD COUNT 3.73 10^6/uL (4.00-5.40); WHITE BLOOD COUNT 6.2 10^3/uL (4.0-10.0)
[2019-03-18 10:40] LABS: ALT/SGPT 16 U/L (12-78); BILIRUBIN,TOTAL 0.9 MG/DL (0.2-1.0); BLOOD UREA NITROGEN 8 MG/DL (7-18); CALCIUM LEVEL 9.1 MG/DL (8.5-10.1); CARBON DIOXIDE LEVEL 23 MEQ/L (21-32); CHLORIDE LEVEL 108 MEQ/L (98-107); CREATININE FOR GFR 0.65 MG/DL (0.55-1.30); GLOMERULAR FILTRATION RATE > 60.0 (>58); GLUCOSE, FASTING 90 MG/DL (70-100); POTASSIUM SERUM 4.1 MEQ/L (3.5-5.1); SODIUM LEVEL 143 MEQ/L (136-145); TOTAL PROTEIN 7.5 GM/DL (6.4-8.2)
[2019-03-18] MEDS ORDERED: MOM 30ML SUSPENSION UDC PO PRN (11:15)
[2019-03-18 12:00] VITALS: BP 116/69
[2019-03-18 12:04] LABS: INR 1.03; PROTHROMBIN TIME 13.6 SECONDS (12.1-14.4)
[2019-03-18 12:05] LABS: PARTIAL THROMBOPLASTIN TIME 26.3 SECONDS (25.4-37.6)
[2019-03-18] MEDS ORDERED: ONDANSETRON 4MG/2ML VIAL (J2405) As Ordered ONE (12:57)
[2019-03-18] MEDS ORDERED: ONDANSETRON 4MG/2ML VIAL (J2405) IV PRN (13:00)
[2019-03-18] MEDS ORDERED: ALBUTEROL 90 MCG/ACT 8GM HFA INHALER INH PRN (14:30)
[2019-03-18] MEDS ORDERED: HEPARIN SOD (PORCINE) 5000 UNITS/ML VIAL IV PRN (14:30)
[2019-03-18] MEDS ORDERED: PROMETHAZINE 25 MG SUPP PR PRN (14:30)
[2019-03-18] MEDS ORDERED: ALBUTEROL SULFATE 2.5 MG/0.5 ML INH NEB SOLN INH PRN (14:30)
[2019-03-18] MEDS: MORPHINE 4 MG/ML 1ML VIAL/SYRINGE (J2270) IV PRN ×3 (15:14→23:46)
[2019-03-18] MEDS: ONDANSETRON 4MG/2ML VIAL (J2405) IV PRN ×2 (15:14→23:46)
[2019-03-18] MEDS: FLUoxetine 20 MG CAP PO SCH (15:18)
[2019-03-18 15:23] VITALS: BP 99/59
[2019-03-18] MEDS ORDERED: cefTRIAXone SOD 2 GM VIAL (J0696) IV SCH (16:00)
[2019-03-18] MEDS ORDERED: cefTRIAXone SOD 2 GM VIAL (J0696) IM SCH (16:00)
[2019-03-18 16:20] LABS: HEMATOCRIT 26.2 % (36.0-47.0); HEMOGLOBIN 8.1 g/dl (12.0-15.5); MEAN CORPUSCULAR HEMOGLOBIN 24.7 pg (27.0-33.0); MEAN CORPUSCULAR HGB CONC 30.9 g/dl (32.0-36.5); MEAN CORPUSCULAR VOLUME 79.9 fl (80.0-96.0); PLATELET COUNT, AUTOMATED 273 10^3/uL (150-450); RED BLOOD COUNT 3.28 10^6/uL (4.00-5.40)
[2019-03-18] MEDS ORDERED: HEPARIN DRIP 25,000 UNITS in APPROPRIATE DILUENT 1 EA IV SCH (16:30)
[2019-03-18] MEDS: MORPHINE 10MG/0.5ML ORAL CONCENTRATE SOLUTION U/D SL PRN ×2 (16:58→21:15)
[2019-03-18] MEDS ORDERED: TPN IV SCH (18:00)
--- NOTE | 2019-03-18 19:15 | HPEPDOC ---
General Date of Admission March 18, 2019 at 11:23 Date of Service: March 18, 2019 Chief Complaint The patient is a 39-year-old female admitted with a reason for visit of Thrombus In Right Ij Vein. Source: Patient, Family History of Present Illness The patient is a 39-year-old female who was referred as an admission by Dr. Trevizo from [facility]. The patient was undergoing outpatient evaluation and had an ultrasound done of the right IJ in setting of a Gal[place] catheter which was placed about weeks ago. She was found to have thrombosis involving the right IJ and was referred for admission given concerns regarding history of GI bleed. Patient reports that after she had a Galicia catheter placed earlier this month about 12 days ago, she has been having some pain as well as swelling involving the right neck. She reports that she has noticed that the swelling seems worse with activity but then seems to improve at rest. It also seems worse with moving her neck. She describes the pain as sharp and at times throbbing. She also has been having some right shoulder pain for last 1 week. The patient also reports on and off problems of bleeding per rectumdescribed as a mix of black and fresh red blood. Reports it has been occurring almost on a daily basis although the amount of 80s. Reports it was more than a couple on Saturday as well as on Saturdayit was not as bad today. She also reports chronic left upper abdominal pain but more recently, over the last 1 week, she also reports right lower quadrant abdominal pain. She denies any associated dysuria. She reports she normally has loose bowel movements although, when she is doing better, she reports that the loose bowel movements seem to slow down. Patient also has been receiving IV ceftriaxone for Serratia bacteremia and septic emboli. She reports her treatment was supposed to finish tomorrow. She does report having fever on and offreports the temperature was as high as 102.4F on Saturday and also reports having sweats "all the time". She also reports some shortness of breath particularly with activity. Also reports some palpitations at times. Initially, the patient had wanted to leave AGAINST MEDICAL ADVICE, however, upon discussing with her regarding her ongoing problems as well as my concern that the patient may without treatment especially in view of right IJ thrombosis, indwelling Galicia catheter, Serratia bacteremia and problems with GI bleeding, the patient subsequently agreed to stay for further treatment. Home Medications Scheduled Ceftriaxone Sodium (Ceftriaxone) 2 Gm Vial.port, 2 GM INJ QPM, (Reported) HAS ONE MORE DOSE DUE TODAY, SHE'S NOT SURE IF SHE WAS TO RECEIVE MORE OR NOT. Fluoxetine HCl (Fluoxetine HCl) 20 Mg/5 Ml Liqd, 20 MG PO DAILY, (Reported) Fluticasone/Vilanterol (Breo Ellipta 100-25 Mcg INH) 1 Each Blst.w.dev, 1 PUFF INH DAILY, (Reported) Zolpidem Tartrate (Zolpidem Tartrate ER) 6.25 Mg Tab.mphase, 6.25 MG PO QHS, (Reported) Scheduled PRN Albuterol Sulf (Albuterol Sulfate) 2.5 Mg/3 Ml Vial.neb, 2.5 MG INH Q4H PRN for SHORTNESS OF BREATH, (Reported) Albuterol Sulfate (Ventolin Hfa) 18 Gm Hfa.aer.ad, 2 PUFF INH Q6H PRN for SHORTN ESS OF BREATH, (Reported) Hydroxyzine HCl (Hydroxyzine HCl) 10 Mg/5 Ml Syp, 5 ML PO Q12H PRN for ITCHING, (Reported) Ondansetron (Ondansetron HCl 4 mg/2 ml Vial) 4 Mg/2 Ml Inj, 8 MG INJ Q8H PRN for NAUSEA OR VOMITING, (Reported) Oxycodone HCl (Oxycodone HCl) 5 Mg Tablet, 5 MG PO Q6H PRN for PAIN, (Reported) MAY TAKE ONE OR TWO TABLETS Promethazine HCl (Phenadoz) 25 Mg Sup, 25 MG KS Q12H PRN for NAUSEA OR VOMITING, (Reported) Allergies Coded Allergies: Sulfa (Sulfonamide Antibiotics) (Verified Allergy, Severe, RESP. PROBLEMS, SWELLING, HIVES, 01/14/19) butorphanol (Verified Allergy, Severe, HIVES/RESP. PROBLEMS (PERCOCET AND TYL#3 OK), 01/14/19) HAS HAD MORPHINE AND DILAUDID IN THE PAST levofloxacin (Verified Allergy, Severe, THROAT SWELLING/HIVES, 01/14/19) tomato (Verified Allergy, Severe, RESP. PROBLEMS, HIVES, 01/14/19) tramadol (Verified Allergy, Severe, SOB - HAS HAD MORPHINE AND DILAUDID IN THE PAST, 01/14/19) scopolamine (Verified Adverse Reaction, Intermediate, VISION LOSS, 01/14/19) NSAIDS (Non-Steroidal Anti-Inflamma (Verified Adverse Reaction, Mild, GASTRIC BYPASS, 01/14/19) Past Medical History Medical History Gastroparesis, malabsorption following gastric bypass on chronic TPN since December 2017, chronic hematochezia/rectal bleeding, anemia requiring transfusions in the past, abdominal pain, patient also reports history of protein S deficiency, on outpatient IV ceftriaxone for Serratia marcescens bacteremia and septic emboli, previous history of Pseudomonas infection central access Surgical History Gastric bypass, bowel resection 2 from bowel ischemia secondary to torsion, bowel obstruction secondary to a lesion, back surgery Family History Patient reports a history of pauses disease in mom, brother, uncles, grandparent Social History * Smoker: Denies Alcohol: Denies Drugs: denies PAST MEDICAL HISTORY: gastroparesis GI tract malfunction//malabsorption after gastric bypass been on chronic TPN since December 2017, chronic hematochezia anemia chronic back pain PAST SURGICAL HISTORY: gastric bypass bowel resection x2 from bowel ischemia (2/2 torsion), and obstruction (2/2 adhesion) back surgery A-FIB/CHADSVASC A-FIB History Current/History of A-Fib/PAF?: No Review of Systems Other systems Negative for 10 systems except as noted under history of present illness Physical Examination General Exam: Positive: Alert, Cooperative, Other (a little tearful) Eye Exam: Positive: PERRLA ENT Exam: Positive: Mucous membr. moist/pink Neck Exam: Positive: Other (right upper chest Galicia catheter in place. Slight tenderness to palpation right side of neck) Chest Exam: Positive: Clear to auscultation; Negative: Rales, Rhonchi, Wheezing Heart Exam: Positive: Rate Normal, Regular Rhythm, Normal S1, Normal S2 Abdomen Exam: Positive: Soft, Other (patient reports tenderness in left upper quadrant as well as right lower quadrant palpation. No guarding or rigidity) Neuro Exam: Positive: Other (awake, alert, oriented 3 and answering questions appropriately. Moving all 4 extremities) Psych Exam: Positive: Other (patient was little tearful at time of my examination) Vital Signs Vital Signs Date Time Temp Pulse Resp B/P (MAP) Pulse Ox O2 Delivery O2 Flow Rate FiO2 03/18/19 16:58 20 03/18/19 15:23 97.7 81 99/59 (72) 97 Laboratory Data Labs 24H Laboratory Tests 2 03/18/19 09:34: Nucleated Red Blood Cells % (auto) 0.0, Anion Gap 12, Glomerular Filtration Rate > 60.0, Blood Urea Nitrogen 8#, Creatinine 0.65, Sodium Level 143, Potassium Level 4.1, Chloride Level 108H, Carbon Dioxide Level 23, Calcium Level 9.1, Aspartate Amino Transf (AST/SGOT) 17, Alanine Aminotransferase (ALT/SGPT) 16, Alkaline Phosphatase 113, Total Bilirubin 0.9, Total Protein 7.5, Albumin 4.0, Albumin/Globulin Ratio 1.14 03/18/19 11:34: Prothrombin Time 13.6, Prothromb Time International Ratio 1.03, Activated Partial Thromboplast Time 26.3 03/18/19 14:58: Nucleated Red Blood Cells % (auto) 0.0, Activated Partial Thromboplast Time 30.0 CBC/BMP Laboratory Tests 03/18/19 09:34 Red Blood Count 3.73 L, Mean Corpuscular Volume 81.5, Mean Corpuscular Hemoglobin 25.5 L, Mean Corpuscular Hemoglobin Concent 31.3 L, Red Cell Distribution Width 16.0 H, Calcium Level 9.1, Aspartate Amino Transf (AST/SGOT) 17, Alanine Aminotransferase (ALT/SGPT) 16, Alkaline Phosphatase 113, Total Bilirubin 0.9, Total Protein 7.5, Albumin 4.0 03/18/19 14:58 Red Blood Count 3.28 L, Mean Corpuscular Volume 79.9 L, Mean Corpuscular Hemoglobin 24.7 L, Mean Corpuscular Hemoglobin Concent 30.9 L, Red Cell Distribution Width 16.1 H Microbiology Microbiology 03/18/19 Blood Culture, Received Pending 03/18/19 Blood Culture, Received Pending Assessment/Plan Current Medications Acetaminophen (Tylenol Tab) 650 mg Q4H PRN PO PAIN OR FEVER; Start 03/18/19 at 11:15 Albuterol Sulfate (Proventil Neb) 2.5 mg Q4H PRN INH SHORTNESS OF BREATH; Start 03/18/19 at 14:30 Albuterol Sulfate (Proventil, Ventolin Hfa) 2 puff Q6H PRN INH SHORTNESS OF BREATH; Start 03/18/19 at 14:30 Ceftriaxone Sodium 2 gm/ Dextrose 50 ml @ 50 mls/hr Q24H IV ; Start 03/19/19 at 16:00 Ceftriaxone Sodium (Rocephin) 2 gm Q24H IM ; Start 03/18/19 at 16:00; Stop 03/18/19 at 16:00; Status DC Ceftriaxone Sodium (Rocephin) 2 gm Q24H IV Last administered on 03/18/19at 16:10; Start 03/18/19 at 16:00; Stop 03/18/19 at 16:16; Status DC Fluoxetine HCl (PROzac) 20 mg DAILY PO Last administered on 03/18/19at 15:18; Start 03/18/19 at 14:30 Heparin Sodium (Porcine) (Heparin) ASDIRECTED PRN IV SEE LABEL COMMENTS; Start 03/18/19 at 14:30 Heparin Sodium (Porcine) 16555 units/IV Miscellaneous Supplies 250 ml @ 0 mls/hr Q0M IV Last administered on 03/18/19at 16:36; Start 03/18/19 at 16:30 Home Med (Med Rec Complete!) ASDIRECTED XX ; Start 03/18/19 at 10:00; Stop 03/18/19 at 11:27; Status DC Hydroxyzine HCl (Atarax Syrup) 10 mg Q12H PRN PO ITCHING; Start 03/18/19 at 14:30 Magnesium Hydroxide (Milk Of Magnesia) 30 ml DAILY PRN PO CONSTIPATION; Start 03/18/19 at 11:15 Miscellaneous (Unresolved Clarification Entry) SEE LABEL COMMENTS STAT STAT XX ; Start 03/18/19 at 15:36; Stop 03/18/19 at 15:37; Status DC Miscellaneous (Unresolved Patient Own Med Order) SEE LABEL COMMENTS DAILY XX ; Start 03/18/19 at 09:00 Morphine Sulfate (Morphine Sulfate Inj) 2 mg Q4HP PRN IV Severe pain Last administered on 03/18/19at 15:14; Start 03/18/19 at 14:30 Morphine Sulfate (Roxanol) 10 mg Q4HP PRN SL Moderate Pain Last administered on 03/18/19at 16:58; Start 03/18/19 at 14:30 Non-Formulary Medication (Heparin Iv Rate Change Documentation ml/ Hr) ASDIRECTED XX ; Start 03/18/19 at 14:30; Stop 03/23/19 at 14:29 Ondansetron HCl (ZOFRAN INJection) 4 mg Q4HP PRN IV NAUSEA OR VOMITING; Start 03/18/19 at 13:00; Stop 03/18/19 at 14:34; Status DC Ondansetron HCl (ZOFRAN INJection) 8 mg Q8H PRN IV NAUSEA OR VOMITING Last administered on 03/18/19at 15:14; Start 03/18/19 at 14:30 Patient Own Medication (Patient'S Own Med) 1 ea DAILY IV ; Start 03/19/19 at 09:00; Status UNV Promethazine HCl (Phenergan Suppository) 25 mg Q12H PRN KS NAUSEA OR VOMITING; Start 03/18/19 at 14:30 Salmeterol Xinafoate/ Fluticasone (Advair Hfa 115/ 21) 2 puff BID INH ; Start 03/18/19 at 21:00 Zolpidem Tartrate (Ambien Cr) 6.25 mg QHS PO ; Start 03/18/19 at 21:00 Doppler ultrasound: Impression: 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 The IJ appears to be occluded. The subclavian vein flow is restricted. Right IJ and subclavian vein thrombosis in setting of Galicia catheter: -Discussed with Dr. Trevizo from vascular surgery as well as with Dr. Perez from hematology oncology -Plan will be to treat with IV heparin and watch for bleeding closely (no bolus) -Patient does report having some amount of blood in her stools almost daily -The patient does have significant bleeding on IV heparin and or significant drop in her hemoglobin/hematocrit, we may need to discontinue heparin -If she does tolerate IV heparin for the next 48 hours and hemoglobin remains fairly stable, plan will be to transition to subcutaneous enoxaparin and so long as patient is able to tolerate same, possibly discharge home on enoxaparin for at least 3-6 months -As noted, patient also reports protein S deficiency Chronic gastrointestinal bleeding: -Monitor H&H every 12 hours -Transfuse if hemoglobin less than 7 on if patient is symptomatic from anemia Serratia marcescens bacteremia and septic emboli on outpatient treatment with IV ceftriaxone: -Continue IV ceftriaxone -Case was discussed with Dr. Orozco from ID -Blood cultures ordered today -As noted, patient reports she was still having fevers up to 102.4F on Saturday Short gut syndrome on chronic TPN: -Continue TPN for now - patient has been advised to bring in her custom home TPN Chronic abdominal pain as well as right neck pain: -Sublingual liquid morphine prn, prn IV morphine Nausea: -When necessary Zofran DVT prophylaxis: -Patient is already on IV heparin CODE STATUS: -DNR/DNI per my discussion with the patient Disposition: -Admit as an inpatient to PCU. Anticipated length of stay more than 2 midnights. Anticipate eventual discharge home once medically stable. Plan / VTE VTE Prophylaxis Ordered?: Yes JAIDEN CARDENAS MD March 18, 2019 19:15
[2019-03-18] MEDS: zolPIDEM CR 6.25MG TABLET (AMBIEN CR) PO SCH (19:47)
[2019-03-18 20:00] VITALS: BP 110/64
[2019-03-18] MEDS: ACETAMINOPHEN TAB 650MG DOSE (2X325MG) PO PRN (21:14)
[2019-03-18 21:29] LABS: HEMATOCRIT 25.9 % (36.0-47.0); HEMOGLOBIN 7.9 g/dl (12.0-15.5)
[2019-03-18] MEDS: ADVAIR HFA 115/21MCG INHALER INH SCH (23:48)
[2019-03-19] VITALS (8 sets, daily range): BP systolic 94–131; BP diastolic 54–68
[2019-03-19] MEDS: ACETAMINOPHEN TAB 650MG DOSE (2X325MG) PO PRN ×2 (01:05→05:45)
[2019-03-19] MEDS: MORPHINE 10MG/0.5ML ORAL CONCENTRATE SOLUTION U/D SL PRN ×5 (01:06→20:20)
[2019-03-19] MEDS: MORPHINE 4 MG/ML 1ML VIAL/SYRINGE (J2270) IV PRN ×5 (04:40→21:34)
[2019-03-19 05:01] LABS: HEMATOCRIT 25.9 % (36.0-47.0); HEMOGLOBIN 7.9 g/dl (12.0-15.5); MEAN CORPUSCULAR HEMOGLOBIN 25.2 pg (27.0-33.0); MEAN CORPUSCULAR HGB CONC 30.5 g/dl (32.0-36.5); MEAN CORPUSCULAR VOLUME 82.7 fl (80.0-96.0); PLATELET COUNT, AUTOMATED 249 10^3/uL (150-450); RED BLOOD COUNT 3.13 10^6/uL (4.00-5.40); WHITE BLOOD COUNT 5.1 10^3/uL (4.0-10.0)
[2019-03-19 05:43] LABS: ALBUMIN 3.7 GM/DL (3.2-5.2); ALT/SGPT 14 U/L (12-78); BILIRUBIN,TOTAL 0.5 MG/DL (0.2-1.0); BLOOD UREA NITROGEN 12 MG/DL (7-18); CALCIUM LEVEL 8.2 MG/DL (8.5-10.1); CARBON DIOXIDE LEVEL 26 MEQ/L (21-32); CHLORIDE LEVEL 107 MEQ/L (98-107); CREATININE FOR GFR 0.67 MG/DL (0.55-1.30); GLOMERULAR FILTRATION RATE > 60.0 (>58); GLUCOSE, FASTING 124 MG/DL (70-100); MAGNESIUM LEVEL 2.1 MG/DL (1.8-2.4); POTASSIUM SERUM 3.9 MEQ/L (3.5-5.1); SODIUM LEVEL 140 MEQ/L (136-145); TOTAL PROTEIN 6.3 GM/DL (6.4-8.2)
[2019-03-19] MEDS ORDERED: NS 1,000 ML IV SCH (07:58)
[2019-03-19] MEDS ORDERED: ACETAMINOPHEN TAB 650MG DOSE (2X325MG) PO ONE (08:00)
[2019-03-19] MEDS ORDERED: diphenhydrAMINE INJ 50MG/ML VIAL (J1200) IV ONE (08:00)
[2019-03-19] MEDS: FLUoxetine 20 MG CAP PO SCH (08:22)
[2019-03-19] MEDS: ADVAIR HFA 115/21MCG INHALER INH SCH ×2 (08:30→18:40)
--- NOTE | 2019-03-19 08:54 | IPNPDOC ---
Date Seen The patient was seen on 03/19/19. Progress Note HPI: 39 year old F who was scheduled at interventional radiology with Dr. 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 The IJ appears to be occluded. Admission to the hospitalist service was arranged. This AM the pt states she has had some Rt sided neck discomfort and some mild tingling in her rt hand. Denies any fevers, chills, Headache, Chest Pain, Shortness of breath, cough, palpitations, abdominal pain, N/V/D or changes in bowel or bladder habits. 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 History of pulmonary nodules, following with Dr. Chakraborty at Pulmonary. History of hematuria, recently referred to urology for cystoscopy. H/O GI Bleeding DEPRESSION ANXIETY HX OF MRSA BACK Pain SURGICAL HISTORY BACK SURGERY DR SU DECOMPRESSION SURGERY 08/2013 Tonsillectomy GASTRIC BYPASS 2008 ENDOMETRIAL ABLATION HYSTERECTOMY HUBBARD CATHETER 05/21/2014 RIGHT LEG WOUND DRAINED-DESIREE 04/2017 LEFT SUBCLAVIAN PORT 10/2017 J-TUBE PLACEMENT AND REMOVAL G-TUBE PLACEMENT 11/2017 SUBCLAVIAN PORT REMOVE 04/2018 PICC LINE 06/2018 PE: GEN: 39yoF, appears stated age. No acute distress. HEENT: Normocephalic, atraumatic. Sclera are nonicteric. Conjunctiva without injection. Nose midline. Moist mucous membranes. CHEST: Regular rate and rhythm, +S1, +S2 LUNGS: Clear to auscultation bilaterally. No wheezes, rales, or rhonchi. ABD: Round, soft, non-tender, non-distended. +Bowel sounds throughout. EXT: No lower extremity edema appreciated. Moving BL UEs with breastfeeding peer counselor intact, sensation to light touch intact, no edema/erythema of UEs noted. Pulses palpable B/L. SKIN: [place], dry, warm. No rashes. NEURO: Alert and oriented x 3. No focal deficits appreciated. 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 The IJ appears to be occluded. The subclavian vein flow is restricted. Unreviewed A&P: 39 year old F who was scheduled at interventional radiology with Dr. 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 The IJ appears to be occluded. Admission to the [facility] arranged. 1. Right IJ catheter, with catheter related thrombosis of the right internal ju gular vein and subclavian vein. The IJ appears to be occluded. The patient is unable to take anticoagulation related to previous history of GI bleeding. The patient also has a recent history of line infection/sepsis which has been followed by Dr. Orozco. ID consult pending. Hematology Clt pending. Heparin IV per protocol. The pt will need further recommendations for long-term plan regarding anti coagulation, access and TPN. The pt is reviewed and discussed with Dr Trevizo, will request vein mapping BL UEs, request US LUE/Lt IJ to further asses for PICC/Port placement. 2. Recent history of line infection. Followed by infectious disease, . Afebrile. WBC 5.1 BC x 2 pending. Last note 02/19/19 indicates the patient was treated for Serratia marcescens sepsis/septic emboli with 4 weeks of Rocephin completed 02/15/19. Further recommendations as per Dr. Orozco. 3. History of GI bleeding. The patient has been unable to take anticoagulation related to this issue. Hgb 7.9 pt to be transfused today x 1 u PRBC. Add FOB. 4. Malabsorption syndrome. Patient is on TPN. 5. Inflammatory bowel disease, possible Crohn's disease. Follows with gastroenterology. VS, I&O, 24H, Fishbone Vital Signs/I&O Vital Signs Date Time Temp Pulse Resp B/P (MAP) Pulse Ox O2 Delivery O2 Flow Rate FiO2 03/19/19 08:33 97.9 113 16 106/59 (75) 100 I&O- Last 24 Hours up to 6 AM 03/19/19 05:59 Intake Total 1658 ml Output Total 500 ml Balance 1158 ml Laboratory Data 24H LABS Laboratory Tests 2 03/18/19 09:34: Nucleated Red Blood Cells % (auto) 0.0, Anion Gap 12, Glomerular Filtration Rate > 60.0, Blood Urea Nitrogen 8#, Creatinine 0.65, Sodium Level 143, Potassium Level 4.1, Chloride Level 108H, Carbon Dioxide Level 23, Calcium Level 9.1, Aspa rtate Amino Transf (AST/SGOT) 17, Alanine Aminotransferase (ALT/SGPT) 16, Alkaline Phosphatase 113, Total Bilirubin 0.9, Total Protein 7.5, Albumin 4.0, Albumin/Globulin Ratio 1.14 03/18/19 11:34: Prothrombin Time 13.6, Prothromb Time International Ratio 1.03, Activated Partial Thromboplast Time 26.3 03/18/19 14:58: Nucleated Red Blood Cells % (auto) 0.0, Activated Partial Thromboplast Time 30.0 03/18/19 22:34: Activated Partial Thromboplast Time 40.0H 03/19/19 04:43: Nucleated Red Blood Cells % (auto) 0.0, Activated Partial Thromboplast Time 62.2H, Anion Gap 7L, Glomerular Filtration Rate > 60.0, Blood Urea Nitrogen 12, Creatinine 0.67, Sodium Level 140, Potassium Level 3.9, Chloride Level 107, Carbon Dioxide Level 26, Calcium Level 8.2L, Aspartate Amino Transf (AST/SGOT) 15, Alanine Aminotransferase (ALT/SGPT) 14, Alkaline Phosphatase 94, Total Bilirubin 0.5, Total Protein 6.3L, Albumin 3.7, Magnesium Level 2.1, Albumin/Globulin Ratio 1.42 CBC/BMP Laboratory Tests 03/18/19 09:34 Red Blood Count 3.73 L, Mean Corpuscular Volume 81.5, Mean Corpuscular Hemoglobin 25.5 L, Mean Corpuscular Hemoglobin Concent 31.3 L, Red Cell Distribution Width 16.0 H, Calcium Level 9.1, Aspartate Amino Transf (AST/SGOT) 17, Alanine Aminotransferase (ALT/SGPT) 16, Alkaline Phosphatase 113, Total Bilirubin 0.9, Total Protein 7.5, Albumin 4.0 03/18/19 14:58 Red Blood Count 3.28 L, Mean Corpuscular Volume 79.9 L, Mean Corpuscular Hemoglobin 24.7 L, Mean Corpuscular Hemoglobin Concent 30.9 L, Red Cell Distribution Width 16.1 H 03/18/19 21:17 03/19/19 04:43 Red Blood Count 3.13 L, Mean Corpuscular Volume 82.7, Mean Corpuscular Hemoglobin 25.2 L, Mean Corpuscular Hemoglobin Concent 30.5 L, Red Cell Distribution Width 16.0 H, Calcium Level 8.2 L, Aspartate Amino Transf (AST/SGOT) 15, Alanine Aminotransferase (ALT/SGPT) 14, Alkaline Phosphatase 94, Total Bilirubin 0.5, Total Protein 6.3 L, Albumin 3.7 Microbiology Microbiology 03/18/19 Blood Culture, Received Pending 03/18/19 Blood Culture, Received Pending Patti Jeffers March 19, 2019 08:54
[2019-03-19] MEDS: ONDANSETRON 4MG/2ML VIAL (J2405) IV PRN ×2 (09:16→20:17)
--- NOTE | 2019-03-19 12:35 | REP ---
Bilateral upper extremity arterial and venous Doppler ultrasound: History: Evaluate for PICC/port placement. Findings: Right internal jugular and subclavian veins are thrombosed and occluded. The distal right subclavian vein could not be seen. The right basilic vein was not seen. The left cephalic vein could not be seen. There is no evidence of venous thrombosis on the left upper extremity. The cephalic vein in the right upper extremity measured 3.9 mm in AP dimension at the upper humerus, 1.6 mm in AP dimension at the lower humerus level, and 0.6 mm in the upper forearm, 1.6 mm in the lower forearm, median cubital vein on the right measured 2.1 mm. In the left upper extremity, the basilic vein measures 2.3 mm at the upper humerus level, 2.6 mm at lower humerus level, 1.9 mm at the upper forearm, and 1.4 mm at the lower forearm. The median cubital vein measures 3.1 mm on the left. Right upper extremity arterial Doppler velocity and size chart: Axillary artery 85 cm/S, 4.7 mm Brachial artery 152 cm/S, 2.2 mm Radial artery 68 cm/S, 1.8 mm Ulnar artery 96 cm/S, 1.7 mm Left upper extremity arterial Doppler velocity and size chart: Axillary artery 134 cm/S, 5.6 mm Brachial artery 139 cm/S, 2.4 mm Radial artery 65 cm/S, 1.7 mm Ulnar artery 67 cm/S, 1.2 mm Electronically Signed by Adrian Valdez MD 03/19/2019 12:26 P
[2019-03-19] MEDS: HEPARIN DRIP 25,000 UNITS in APPROPRIATE DILUENT 1 EA IV SCH (14:53)
[2019-03-19] MEDS ORDERED: cefTRIAXone SOD 2 GM in D5W MINI-BAG PLUS 50 ML IV SCH (16:00)
--- NOTE | 2019-03-19 17:01 | IPNPDOC ---
Subjective Date Seen The patient was seen on 03/19/19. Subjective Chief Complaint/HPI Thrombus and right IJ vein and subclavian vein Events since last encounter The patient reports continued pain in the right side of the neck as well as right shoulder. Worse with movement. Morphine seems to help. Denies any bleeding per rectum since admission. Reports unchanged left upper abdominal pain. Right lower quadrant abdominal pain seems a little better. Denies feeling overtly short of breath. Does report feeling more dizzy today compared to yesterday. Also reports problems with elevated heart rate last night with any movement. Objective Physical Examination General Exam: Positive: Alert, Cooperative, Other (plan: [) Eye Exam: Positive: PERRLA ENT Exam: Positive: Mucous membr. moist/pink Neck Exam: Positive: Other (right upper chest Galicia catheter in place. Tenderness to palpation over right side of neck ) Chest Exam: Positive: Clear to auscultation; Negative: Rales, Rhonchi, Wheezing Heart Exam: Positive: Tachycardic, Regular Rhythm, Normal S1, Normal S2 Abdomen Exam: Positive: Soft, Other (slight tenderness in left upper quadrant. No guarding or rigidity.) Neuro Exam: Positive: Other (awake, alert, oriented 3 and answering questions appropriately. 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: -She does been seen by vascular surgery - per vascular, vein mapping and venous duplex of left neck and left upper extremity to be obtained to assess for alternate site for central catheter -Ct IV heparin and watch for bleeding closely -If tolerates IV heparin and no further bleeding by tomorrow, plan will be to transition to subcutaneous Lovenox and monitor - she will require 3-6 months of anti-correlation per discussion with Dr Perez -Patient reports protein S deficiency Chronic gastrointestinal bleeding: -Monitor H&H every 12 hours -Patient does have symptoms today despite hemoglobin of 7.9she is also more tachycardic and dizzy today. I will transfuse 1 unit packed RBC. Serratia marcescens bacteremia and septic emboli on outpatient treatment with IV ceftriaxone: -Patient scheduled to finish treatment with IV ceftriaxone today -Replete blood cultures showing no growth thus far at 24 hours -Case was previously discussed with Dr. Orozco from ID Short gut syndrome on chronic TPN: -Continue TPN for now Chronic abdominal pain as well as right neck pain: -Sublingual liquid morphine prn, prn IV morphine -Added topical lidocaine patch Nausea: -When necessary Zofran -Clear liquid diet DVT prophylaxis: -Patient is already on IV heparin Disposition: If patient's hemoglobin remains stable on enoxaparin, anticipate eventual discharge home once with plan 3-6 months anticoagulation Plan/VTE VTE Prophylaxis Ordered?: Yes VS, I&O, 24H, Fishbone Vital Signs/I&O Vital Signs Date Time Temp Pulse Resp B/P (MAP) Pulse Ox O2 Delivery O2 Flow Rate FiO2 03/19/19 16:00 98.7 95 16 105/59 (74) 98 I&O- Last 24 Hours up to 6 AM 03/19/19 06:00 Intake Total 1794 ml Output Total 500 ml Balance 1294 ml Laboratory Data 24H LABS Laboratory Tests 2 03/18/19 22:34: Activated Partial Thromboplast Time 40.0H 03/19/19 04:43: Activated Partial Thromboplast Time 62.2H, Nucleated Red Blood Cells % (auto) 0.0, Anion Gap 7L, Glomerular Filtration Rate > 60.0, Blood Urea Nitrogen 12, Creatinine 0.67, Sodium Level 140, Potassium Level 3.9, Chloride Level 107, Carbon Dioxide Level 26, Calcium Level 8.2L, Aspartate Amino Transf (AST/SGOT) 15, Alanine Aminotransferase (ALT/SGPT) 14, Alkaline Phosphatase 94, Total Bilirubin 0.5, Total Protein 6.3L, Albumin 3.7, Magnesium Level 2.1, Albumin/Globulin Ratio 1.42 03/19/19 11:26: Activated Partial Thromboplast Time 74.0H CBC/BMP Laboratory Tests 03/18/19 21:17 03/19/19 04:43 Red Blood Count 3.13 L, Mean Corpuscular Volume 82.7, Mean Corpuscular Hemoglobin 25.2 L, Mean Corpuscular Hemoglobin Concent 30.5 L, Red Cell Distribution Width 16.0 H, Calcium Level 8.2 L, Aspartate Amino Transf (AST/SGOT) 15, Alanine Aminotransferase (ALT/SGPT) 14, Alkaline Phosphatase 94, Total Bilirubin 0.5, Total Protein 6.3 L, Albumin 3.7 Microbiology Microbiology 03/18/19 Blood Culture - Preliminary, Resulted No growth after 24 hours . All specim... 03/18/19 Blood Culture - Preliminary, Resulted No growth after 24 hours . All specim... JAIDEN CARDENAS MD March 19, 2019 17:01
[2019-03-19 17:11] LABS: C REACTIVE PROTEIN QUANTITATIV < 0.30 MG/DL (0.00-0.30)
[2019-03-19] MEDS: LIDOCAINE 5% (LIDODERM) PATCH TD SCH (17:22)
[2019-03-19 17:40] LABS: HEMATOCRIT 27.9 % (36.0-47.0); HEMOGLOBIN 8.8 g/dl (12.0-15.5)
[2019-03-19] MEDS ORDERED: TPN IV SCH (18:00)
[2019-03-19] MEDS: **NOTE PATIENT COMMENT** MISC XX SCH (20:17)
[2019-03-19] MEDS: zolPIDEM CR 6.25MG TABLET (AMBIEN CR) PO SCH (20:17)
[2019-03-20] MEDS: MORPHINE 10MG/0.5ML ORAL CONCENTRATE SOLUTION U/D SL PRN ×5 (00:56→23:53)
[2019-03-20] MEDS: MORPHINE 4 MG/ML 1ML VIAL/SYRINGE (J2270) IV PRN ×5 (01:08→22:09)
[2019-03-20 04:00] VITALS: BP 106/69
[2019-03-20] MEDS: ONDANSETRON 4MG/2ML VIAL (J2405) IV PRN ×3 (04:17→21:21)
[2019-03-20 05:52] LABS: BASO % 0.8 % (0.0-1.0); EOS # 0.4 10^3/uL (0.0-0.50); EOS % 7.5 % (0.0-3.0); HEMATOCRIT 26.7 % (36.0-47.0); HEMOGLOBIN 8.3 g/dl (12.0-15.5); LYMPH # 1.3 10^3/uL (1.5-4.5); MEAN CORPUSCULAR HEMOGLOBIN 25.4 pg (27.0-33.0); MEAN CORPUSCULAR HGB CONC 31.1 g/dl (32.0-36.5); MEAN CORPUSCULAR VOLUME 81.7 fl (80.0-96.0); MONO # 0.5 10^3/uL (0.0-0.8); MONO % 9.5 % (0.0-5.0); NEUTROPHILS # 2.7 10^3/uL (1.8-7.7); PLATELET COUNT, AUTOMATED 217 10^3/uL (150-450); RED BLOOD COUNT 3.27 10^6/uL (4.00-5.40)
[2019-03-20 06:23] LABS: BLOOD UREA NITROGEN 12 MG/DL (7-18); CALCIUM LEVEL 8.8 MG/DL (8.5-10.1); CARBON DIOXIDE LEVEL 25 MEQ/L (21-32); CHLORIDE LEVEL 108 MEQ/L (98-107); CREATININE FOR GFR 0.58 MG/DL (0.55-1.30); GLOMERULAR FILTRATION RATE > 60.0 (>58); GLUCOSE, FASTING 111 MG/DL (70-100); PHOSPHORUS LEVEL 3.6 MG/DL (2.5-4.9); POTASSIUM SERUM 3.9 MEQ/L (3.5-5.1); SODIUM LEVEL 139 MEQ/L (136-145)
[2019-03-20] MEDS: ADVAIR HFA 115/21MCG INHALER INH SCH ×2 (07:33→20:31)
[2019-03-20 08:00] VITALS: BP 120/59
[2019-03-20] MEDS: FLUoxetine 20 MG CAP PO SCH (09:39)
[2019-03-20] MEDS: LIDOCAINE 5% (LIDODERM) PATCH TD SCH (09:40)
--- NOTE | 2019-03-20 09:56 | IPNPDOC ---
Date Seen The patient was seen on 03/20/19. Progress Note HPI: 39 year old F who was scheduled at interventional radiology with Dr. 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 The IJ appears to be occluded. Admission to the hospitalist service was arranged. This AM the pt states she has had some Rt sided neck discomfort which she states is worse today and some tingling in her rt hand which she states has been more pronounced. There is no drainage from the catheter site. No surrounding erythema or edema. Denies any fevers, chills, Headache, Chest Pain, Shortness of breath, cough, palpitations, abdominal pain, N/V/D or changes in bowel or bladder habits. 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 History of pulmonary nodules, following with Dr. Chakraborty at Pulmonary. History of hematuria, recently referred to urology for cystoscopy. H/O GI Bleeding DEPRESSION ANXIETY HX OF MRSA BACK Pain SURGICAL HISTORY BACK SURGERY DR SU DECOMPRESSION SURGERY 08/2013 Tonsillectomy GASTRIC BYPASS 2008 ENDOMETRIAL ABLATION HYSTERECTOMY HUBBARD CATHETER 05/21/2014 RIGHT LEG WOUND DRAINED-DESIREE 04/2017 LEFT SUBCLAVIAN PORT 10/2017 J-TUBE PLACEMENT AND REMOVAL G-TUBE PLACEMENT 11/2017 SUBCLAVIAN PORT REMOVE 04/2018 PICC LINE 06/2018 PE: GEN: 39yoF, appears stated age. No acute distress. HEENT: Normocephalic, atraumatic. Sclera are nonicteric. Conjunctiva without injection. Nose midline. Moist mucous membranes. CHEST: Regular rate and rhythm, +S1, +S2 LUNGS: Clear to auscultation bilaterally. No wheezes, rales, or rhonchi. ABD: Round, soft, non-tender, non-distended. +Bowel sounds throughout. EXT: No lower extremity edema appreciated. Moving BL UEs with precipitate washer intact, sensation to light touch intact, no edema/erythema of UEs noted. Pulses palpable B/L. SKIN: [place], dry, warm. No rashes. NEURO: Alert and oriented x 3. No focal deficits appreciated. 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 The IJ appears to be occluded. The subclavian vein flow is restricted. Unreviewed 03/19/19 vein mapping upper extremities/ultrasound left IJ/subclavian Findings: Right internal jugular and subclavian veins are thrombosed and occluded. The distal right subclavian vein could not be seen. The right basilic vein was not seen. The left cephalic vein could not be seen. There is no evidence of venous thrombosis on the left upper extremity. The cephalic vein in the right upper extremity measured 3.9 mm in AP dimension at the upper humerus, 1.6 mm in AP dimension at the lower humerus level, and 0.6 mm in the upper forearm, 1.6 mm in the lower forearm, median cubital vein on the right measured 2.1 mm. In the left upper extremity, the basilic vein measures 2.3 mm at the upper humerus level, 2.6 mm at lower humerus level, 1.9 mm at the upper forearm, and 1.4 mm at the lower forearm. The median cubital vein measures 3.1 mm on the left. Right upper extremity arterial Doppler velocity and size chart: Axillary artery 85 cm/S, 4.7 mm Brachial artery 152 cm/S, 2.2 mm Radial artery 68 cm/S, 1.8 mm Ulnar artery 96 cm/S, 1.7 mm Left upper extremity arterial Doppler velocity and size chart: Axillary artery 134 cm/S, 5.6 mm Brachial artery 139 cm/S, 2.4 mm Radial artery 65 cm/S, 1.7 mm Ulnar artery 67 cm/S, 1.2 mm Electronically Signed by Adrian Valdez MD 03/19/2019 12:26 P A&P: 39 year old F who was scheduled at interventional radiology with Dr. 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 The IJ appears to be occluded. Admission to the hospitalist services arranged. 1. 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 The IJ appears to be occluded. The patient has been unable to take anticoagulation related to previous history of GI bleeding. The patient also has a recent history of line infection/sepsis which has been followed by Dr. Orozco. ID consult pending. Hematology Clt pending. Currently remains on heparin IV per protocol The pt will need further recommendations for long-term plan regarding anticoagulation, access and TPN. The pt is reviewed and discussed with Dr Trevizo, will request repeat ultrasound of right IJ/subclavian to reassess thrombosis as patient is complaining of increased discomfort. 2. Recent history of line infection. Followed by infectious disease, . Afebrile. WBC 5.0 BC x 2 pending. Last note 02/19/19 indicates the patient was treated for Serratia marcescens sepsis/septic emboli with 4 weeks of Rocephin completed 02/15/19. Further recommendations as per Dr. Orozco. 3. History of GI bleeding. The patient has been unable to take anticoagulation related to this issue. Hgb 8.3 1 u PRBC 03/19/19. FOB pending. 4. Malabsorption syndrome. Patient is on TPN. 5. Inflammatory bowel disease, possible Crohn's disease. Follows with gastroenterology at [facility]. VS, I&O, 24H, [facility] Vital Signs/I&O Vital Signs Date Time Temp Pulse Resp B/P (MAP) Pulse Ox O2 Delivery O2 Flow Rate FiO2 03/20/19 09:42 18 03/20/19 08:00 98.2 111 120/59 (79) 97 I&O- Last 24 Hours up to 6 AM 03/20/19 06:00 Intake Total 1310 ml Output Total 2225 ml Balance -915 ml Laboratory Data 24H LABS Laboratory Tests 2 03/19/19 11:26: Activated Partial Thromboplast Time 74.0H 03/19/19 17:25: Activated Partial Thromboplast Time 76.3H 03/20/19 05:36: Immature Granulocyte % (Auto) 0.2, White Blood Count 5.0, Red Blood Count 3.27L, Hemoglobin 8.3L, Hematocrit 26.7L, Mean Corpuscular Volume 81.7, Mean Corpuscular Hemoglobin 25.4L, Mean Corpuscular Hemoglobin Concent 31.1L, Red Cell Distribution Width 15.9H, Platelet Count 217, Neutrophils (%) (Auto) 55.0, Lymphocytes (%) (Auto) 27.0, Monocytes (%) (Auto) 9.5H, Eosinophils (%) (Auto) 7.5H, Basophils (%) (Auto) 0.8, Neutrophils # (Auto) 2.7, Lymphocytes # (Auto) 1.3L, Monocytes # (Auto) 0.5, Eosinophils # (Auto) 0.4, Basophils # (Auto) 0.0, Nucleated Red Blood Cells % (auto) 0.0, Anion Gap 6L, Glomerular Filtration Rate > 60.0, Blood Urea Nitrogen 12, Creatinine 0.58, Sodium Level 139, Potassium Level 3.9, Chloride Level 108H, Carbon Dioxide Level 25, Calcium Level 8.8, Phosphorus Level 3.6, Magnesium Level 2.0 03/20/19 08:01: Activated Partial Thromboplast Time 73.7H CBC/BMP Laboratory Tests 03/19/19 17:25 03/20/19 05:36 Red Blood Count 3.27 L, Mean Corpuscular Volume 81.7, Mean Corpuscular Hemoglobin 25.4 L, Mean Corpuscular Hemoglobin Concent 31.1 L, Red Cell Distribution Width 15.9 H, Neutrophils (%) (Auto) 55.0, Lymphocytes (%) (Auto) 27.0, Monocytes (%) (Auto) 9.5 H, Eosinophils (%) (Auto) 7.5 H, Basophils (%) (Auto) 0.8, Neutrophils # (Auto) 2.7, Lymphocytes # (Auto) 1.3 L, Monocytes # (Auto) 0.5, Eosinophils # (Auto) 0.4, Basophils # (Auto) 0.0, Calcium Level 8.8 Microbiology Microbiology 03/18/19 Blood Culture - Preliminary, Resulted No growth after 24 hours . All specim... 03/18/19 Blood Culture - Preliminary, Resulted No growth after 24 hours . All specim... Patti Jeffers March 20, 2019 09:56
[2019-03-20 12:00] VITALS: BP 102/57
[2019-03-20] MEDS: HEPARIN DRIP 25,000 UNITS in APPROPRIATE DILUENT 1 EA IV SCH (12:10)
--- NOTE | 2019-03-20 13:20 | CR.PDOC ---
General Date of Consultation: March 20, 2019 Referring Provider: JIADEN CARDENAS MD Attending Physician: Jose Orozco MD Consultation INFECTIOUS DISEASE CONSULT REASON FOR CONSULTATION/CHIEF COMPLAINT: Hx of Serratia bacteremia HISTORY OF PRESENT ILLNESS: 39 yo F with extensive medical history as noted below initially presented to the hospital in December 2017, septic, presumed to be 2/2 right chest port which had been present without issues since December 2017 for TPN due to her underlying GI issues. She was found to have blood cultures positive for Serratia marcescens on 01/11/19 in 1 of 1 tubes, and repeat blood cultures on 01/12 & again on 01/13 were negative. She was also found to have septic emboli to the lungs from this, to follow-up outpatient with shoe repair supervisor Dr. Chakraborty. She was discharged home for a total 4 weeks of IV ceftriaxone. Repeat blood cultures in the outpatient setting on 02/23/[address] Orozco again were positive for Serratia despite the 4 weeks of treatment. She had been counseled to go to the ER, had presented to [facility], found to be septic again. She is hospitalized on IV antibiotics-we do not have these records. She was then discharged home for an additional 3 weeks of IV ceftriaxone, course completed yesterday 03/19/2019. During her stay at [facility], the source of infection was presumed to be her central access on the right chest wall, which was replaced. 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 She has been admitted, currently in process of evaluation by vascular surgery. Infectious disease has been consulted for evaluating role of antibiotic therapy given her history of Serratia bacteremia. Patient reports subjective intermittent fevers of 102-103 at home in the past few weeks, despite being on the previous course of IV Ceftriaxone. Denies n/v, any new abdominal or joint pains, weight loss, changes in bowel habits, chest pain or shortness of breath. Since her admission, she has been afebrile, normal white count. Repeat blood cultures have been negative. She is examined at bedside with and friend in the room, has no other complaints currently besides tenderness in the neck and chronic abdominal discomfort. ALLERGIES: Please see below. HOME MEDICATIONS: Please see below. CURRENT MEDICATIONS: TPN Roxanol Lidocaine Ambien Advair Proventil Atarax Zofran Phenergan Prozac Morphine Tylenol Milk of Mag PAST MEDICAL HISTORY: Malabsorption since gastric bypass, on chronic TPN since December 2017 Gastroparesis History of lower GI bleeds requiring blood transfusions Protein S deficiency History of Serratia marcescens bacteremia and septic emboli 12/2018 History of Pseudomonas infection History of HSV PAST SURGICAL HISTORY: Bowel resection x2 for ischemic bowel from torsion Gastric bypass Bowel obstruction Back surgery SOCIAL HISTORY: Denies her smoking, drinking, illicit substances. Is . REVIEW OF SYSTEMS: Negative, as per HPI PHYSICAL EXAMINATION: General exam: Alert and cooperative, A&O 3, NAD Eye exam: PERRLA, EOMI ENT: Atraumatic, normocephalic, tongue midline, no pharyngeal edema or oral lesions Neck: Supple, no JVD, no carotid bruits Cardiac: RRR, normal S1 & S2, no murmurs Respiratory: CTAB, good air exchange, no wheezing, rhonchi, or rales Chest: central line present on right chest wall, no drainage at the site. No sign of infection Abdomen: normoactive bowel sounds, mild tenderness to palpation throughout, nondistended Extremity: 2+ radial pulses, no edema, cyanosis, or tenderness Skin: [place], warm, dry, no visible rash or lesions, no jaundice Neuro: Strength & sensation intact, normal speech, no focal deficit Psych: Normal mood, flat affect LABORATORY DATA: Please see below. ASSESSMENT/PLAN: Patient's history of Serratia bacteremia was likely 2/2 previously infected port, which was removed during her hospitalization at [facility]. She initially underwent a 4 week course of IV ceftriaxone, proceeded by additional 3 week course of ceftriaxone and port exchange. She does have a history of septic emboli to the lungs from this previous infection, for which she followed up with shoe repair supervisor Dr. Chakraborty in the outpatient setting. A repeat CT of the chest has been ordered to reassess this, currently pending. Although she reports subjective intermittent fevers at home, this has not been documented during her stay in the hospital thus far. She is afebrile, with normal white count & CRP, and repeat blood cultures are negative at 24 hours. This does not warrant any additional antibiotics at this point, and her subjective intermittent fevers may very well be 2/2 underlying active thrombosis , for which she is in the process of planning care with vascular surgery Dr. Trevizo. Thank you for the consult. We will Continue to follow along. Vital Signs/I&O Vital Signs Date Time Temp Pulse Resp B/P (MAP) Pulse Ox O2 Delivery O2 Flow Rate FiO2 03/20/19 09:42 18 03/20/19 08:00 98.2 111 120/59 (79) 97 I&O- Last 24 Hours up to 6 AM 03/20/19 05:59 Intake Total 1446 ml Output Total 1425 ml Balance 21 ml Laboratory Data Labs 24H Laboratory Tests 2 03/19/19 17:25: Activated Partial Thromboplast Time 76.3H 03/20/19 05:36: Immature Granulocyte % (Auto) 0.2, White Blood Count 5.0, Red Blood Count 3.27L, Hemoglobin 8.3L, Hematocrit 26.7L, Mean Corpuscular Volume 81.7, Mean Corpuscular Hemoglobin 25.4L, Mean Corpuscular Hemoglobin Concent 31.1L, Red Cell Distribution Width 15.9H, Platelet Count 217, Neutrophils (%) (Auto) 55.0, Lymphocytes (%) (Auto) 27.0, Monocytes (%) (Auto) 9.5H, Eosinophils (%) (Auto) 7.5H, Basophils (%) (Auto) 0.8, Neutrophils # (Auto) 2.7, Lymphocytes # (Auto) 1.3L, Monocytes # (Auto) 0.5, Eosinophils # (Auto) 0.4, Basophils # (Auto) 0.0, Nucleated Red Blood Cells % (auto) 0.0, Anion Gap 6L, Glomerular Filtration Rate > 60.0, Blood Urea Nitrogen 12, Creatinine 0.58, Sodium Level 139, Potassium Level 3.9, Chloride Level 108H, Carbon Dioxide Level 25, Calcium Level 8.8, Phosphorus Level 3.6, Magnesium Level 2.0 03/20/19 08:01: Activated Partial Thromboplast Time 73.7H CBC/BMP Laboratory Tests 03/19/19 17:25 03/20/19 05:36 Red Blood Count 3.27 L, Mean Corpuscular Volume 81.7, Mean Corpuscular Hemoglobin 25.4 L, Mean Corpuscular Hemoglobin Concent 31.1 L, Red Cell Distribution Width 15.9 H, Neutrophils (%) (Auto) 55.0, Lymphocytes (%) (Auto) 27.0, Monocytes (%) (Auto) 9.5 H, Eosinophils (%) (Auto) 7.5 H, Basophils (%) (Auto) 0.8, Neutrophils # (Auto) 2.7, Lymphocytes # (Auto) 1.3 L, Monocytes # (Auto) 0.5, Eosinophils # (Auto) 0.4, Basophils # (Auto) 0.0, Calcium Level 8.8 Microbiology Microbiology 03/18/19 Blood Culture - Preliminary, Resulted No growth after 24 hours . All specim... 03/18/19 Blood Culture - Preliminary, Resulted No growth after 24 hours . All specim... Allergies Coded Allergies: Sulfa (Sulfonamide Antibiotics) (Verified Allergy, Severe, RESP. PROBLEMS, SWELLING, HIVES, 01/14/19) butorphanol (Verified Allergy, Severe, HIVES/RESP. PROBLEMS (PERCOCET AND TYL#3 OK), 01/14/19) HAS HAD MORPHINE AND DILAUDID IN THE PAST levofloxacin (Verified Allergy, Severe, THROAT SWELLING/HIVES, 01/14/19) tomato (Verified Allergy, Severe, RESP. PROBLEMS, HIVES, 01/14/19) tramadol (Verified Allergy, Severe, SOB - HAS HAD MORPHINE AND DILAUDID IN THE PAST, 01/14/19) scopolamine (Verified Adverse Reaction, Intermediate, VISION LOSS, 01/14/19) NSAIDS (Non-Steroidal Anti-Inflamma (Verified Adverse Reaction, Mild, GASTRIC BYPASS, 01/14/19) Home Medications Scheduled Ceftriaxone Sodium (Ceftriaxone) 2 Gm Vial.port, 2 GM INJ QPM, (Reported) HAS ONE MORE DOSE DUE TODAY, SHE'S NOT SURE IF SHE WAS TO RECEIVE MORE OR NOT. Fluoxetine HCl (Fluoxetine HCl) 20 Mg/5 Ml Liqd, 20 MG PO DAILY, (Reported) Fluticasone/Vilanterol (Breo Ellipta 100-25 Mcg INH) 1 Each Blst.w.dev, 1 PUFF INH DAILY, (Reported) Zolpidem Tartrate (Zolpidem Tartrate ER) 6.25 Mg Tab.mphase, 6.25 MG PO QHS, (Reported) Scheduled PRN Albuterol Sulf (Albuterol Sulfate) 2.5 Mg/3 Ml Vial.neb, 2.5 MG INH Q4H PRN for SHORTNESS OF BREATH, (Reported) Albuterol Sulfate (Ventolin Hfa) 18 Gm Hfa.aer.ad, 2 PUFF INH Q6H PRN for SHORTNESS OF BREATH, (Reported) Hydroxyzine HCl (Hydroxyzine HCl) 10 Mg/5 Ml Syp, 5 ML PO Q12H PRN for ITCHING, (Reported) Ondansetron (Ondansetron HCl 4 mg/2 ml Vial) 4 Mg/2 Ml Inj, 8 MG INJ Q8H PRN for NAUSEA OR VOMITING, (Reported) Oxycodone HCl (Oxycodone HCl) 5 Mg Tablet, 5 MG PO Q6H PRN for PAIN, (Reported) MAY TAKE ONE OR TWO TABLETS Promethazine HCl (Phenadoz) 25 Mg Sup, 25 MG LA Q12H PRN for NAUSEA OR VOMITING, (Reported) GME ATTESTATION GME ATTESTATION My faculty preceptor for this patient encounter was physically present during the encounter and was fully available. All aspects of the patient interview, examination, medical decision making process, and medical care plan development were reviewed and approved by the faculty preceptor. The faculty preceptor is aware and concurs with the plan as stated in the body of this note and will attest to such by his/her cosignature. TERRIE CHINCHILLA DO March 20, 2019 12:07
[2019-03-20] MEDS ORDERED: ISOVUE-370 76% 100ML VIAL (Q9967) As Ordered ONE (13:41)
--- NOTE | 2019-03-20 14:13 | REP ---
CT Head without contrast HISTORY: Right side numbness COMPARISON: 12/16/2016 There is no intraparenchymal hemorrhage, acute infarct, mass or midline shift. The ventricular system is normal in appearance. There is no extra cerebral collection. There is no fracture. The visualized sinuses are clear. IMPRESSION: There is no intracranial lesion. Electronically Signed by Obi De La Rosa MD 03/20/2019 02:05 P
--- NOTE | 2019-03-20 14:24 | REP ---
Clinical: Acute chest pain with history of septic emboli. Technique: Axial contrast enhanced images from the thoracic inlet to the upper abdomen using 100 ml Isovue 370 intravenous contrast material with coronal and sagittal re-formations. Findings: Satisfactory enhancement of the pulmonary vasculature is achieved and no filling defects are identified to suggest pulmonary embolus. Thoracic aorta is normal caliber without aneurysm or dissection. Heart and pericardium are normal. Bilateral lung snell demonstrate few small scattered noncalcified nodular densities which appear improved and decreased in size when compared to prior examination consistent with resolving septic emboli. No new area of consolidation, new nodule or mass lesion is appreciated. No pleural effusion. No pneumothorax. Tracheobronchial tree is patent. No significant adenopathy. Musculoskeletal structures are intact. Impression: 1. No evidence for pulmonary embolus. 2. Improving appearance to the previously noted septic emboli which have decreased in size or resolved. 3. No new acute mediastinal or pleuroparenchymal process appreciated. Electronically Signed by Michael James MD 03/20/2019 02:16 P
[2019-03-20] MEDS: ACETAMINOPHEN TAB 650MG DOSE (2X325MG) PO PRN ×3 (14:56→23:52)
--- NOTE | 2019-03-20 15:26 | REP ---
Limited right upper extremity duplex venous ultrasound: History: Evaluate the right internal jugular and subclavian vein thrombosis. Patient on heparin. Status post [place] catheter placement. Comparison study is from 2 days prior showing occlusive thrombosis of the internal jugular vein and nonocclusive thrombosis of the subclavian vein. Findings: On today's sonographic imaging, the findings are unchanged with occlusive thrombus again visualized in the mid internal jugular vein extending into the subclavian vein. Nonocclusive thrombus is seen in the subclavian vein. The [place] catheter is noted entering the mid internal jugular vein. Impression: Findings essentially unchanged from the study done 2 days prior. Electronically Signed by Adrian Valdez MD 03/20/2019 03:18 P
--- NOTE | 2019-03-20 17:15 | IPNPDOC ---
Subjective Date Seen The patient was seen on 03/20/19. 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 Described as a sharp pain. Worse with movement. Also reports some shortness of breath as well as palpitations/some dizziness especially when she gets up to go to the bathroom. No fevers overnight. No nausea or vomiting. Reports some numbness feeling involving the lower part of face, right neck as well as right upper extremity. Hasn't had any bloody bowel movements/bleeding per rectum. No problems with urination. Objective Physical Examination General Exam: Positive: Alert, Cooperative, Other (sitting up in bed) Eye Exam: Positive: PERRLA ENT Exam: Positive: Mucous membr. moist/pink Neck Exam: Positive: Other (right upper chest wall [place] catheter in place. Reports tenderness to palpation over the right side of her neck.) Chest Exam: Positive: Clear to auscultation; Negative: Rales, Rhonchi, Wheezing Heart Exam: Positive: Rate Normal, Regular Rhythm, Normal S1, Normal S2 Abdomen Exam: Positive: Soft Neuro Exam: Positive: Other (cranial allows 212 appear essentially intactright shoulder strength testing was limited though secondary to pain. Testing for pronator drift somewhat Limited secondary to right shoulder pain. Right lower extremity strength testing also somewhat Limited secondary to right hip pain. Strength does appear to be at least 4+ over 5 on the right side despite the pain. [id number] test appears intact bilaterally. Patient reports decreased fine touch sensation over right upper extremity/right side of her face/neck. She is awake, alert, oriented and answering questions appropriately.) Assessment /Plan Assessment CT angiogram chest: Impression: 1. No evidence for pulmonary embolus. 2. Improving appearance to the previously noted septic emboli which have decreased in size or resolved. 3. No new acute mediastinal or pleuroparenchymal process appreciated Noncontrast head CT: IMPRESSION: There is no intracranial lesion. Duplex ultrasound right upper extremity, limited: Findings: On today's sonographic imaging, the findings are unchanged with occlusive thrombus again visualized in the mid internal jugular vein extending into the subclavian vein. Nonocclusive thrombus is seen in the subclavian vein. The [place] catheter is noted entering the mid internal jugular vein. Impression: Findings essentially unchanged from the study done 2 days prior. Right IJ and subclavian vein thrombosis in setting of [place] catheter: -Patient is being seen by vascular surgery - appreciate input -Ct IV heparin D2 - no obvious bleeding thus far. Plan will be to switch to enoxaparin starting tonight if does not have any per rectal bleeding today either -She will require 3-6 months of anti-correlation per discussion with Dr Perez -Patient reports protein S deficiency Chronic gastrointestinal bleeding: -Monitor H&H every 12 hours -hemoglobin 8.3 this morningno indication for transfusion. -Status post 1 unit packed RBCs as far -Heart rates have improved as transfusion Serratia marcescens bacteremia and septic emboli on outpatient treatment with IV ceftriaxone: -Status post completion of treatment with IV ceftriaxone of initially 4 weeks followed by another 3 weeks -Appreciate input by ID -Repeat blood cultures showing no growth thus far @ 48 hrs -CRP normal -Patient's reported fever could have been related to the underlying thrombosis Right neck/right upper exudate numbness: -On neurologic exam, patient's strength testing is somewhat limited in the right upper and lower extremities related to pain in the right neck, right shoulder as well as in the right hip. -Does report some decreased fine touch in the right side of her face/neck/right upper extremity -Head CT was unremarkable - no stroke/bleed identified -Clinically, no definitive findings suggestive of stroke -Symptoms may be related to the pain related to the thrombosis Shortness of breath: -Patient reported shortness of breath and also had some tachycardia although suspect the tachycardia was more related to the underlying anemia -Nonetheless, CT angiogram of chest was obtained todaydoes not show any evidence of pulmonary embolism and the previously noted septic emboli appear imp roved Short gut syndrome on chronic TPN: -Continue TPN for now -Per discussion with pharmacy, if patient is discharged home on the weekend, she will not be able to get her outpatient TPN until Saturday Chronic abdominal pain as well as right neck pain: -Sublingual liquid morphine prn, prn IV morphine - increased dose of SL liquid morphine -Ct lidocaine patch Nausea: -When necessary Zofran -Clear liquid diet DVT prophylaxis: -Patient is already on IV heparin Time spent examining patient, reviewing chart and discussing plan of care with patient as well as family at bedside was 35 minutes. Of this, more than 50% was spent [id number]. Plan/VTE VTE Prophylaxis Ordered?: Yes VS, I&O, 24H, Fishbone Vital Signs/I&O Vital Signs Date Time Temp Pulse Resp B/P (MAP) Pulse Ox O2 Delivery O2 Flow Rate FiO2 03/20/19 14:58 97.9 80 16 118/57 03/20/19 12:00 97 I&O- Last 24 Hours up to 6 AM 03/20/19 06:00 Intake Total 1310 ml Output Total 2225 ml Balance -915 ml Laboratory Data 24H LABS Laboratory Tests 2 03/19/19 17:25: Activated Partial Thromboplast Time 76.3H 03/20/19 05:36: Immature Granulocyte % (Auto) 0.2, White Blood Count 5.0, Red Blood Count 3.27L, Hemoglobin 8.3L, Hematocrit 26.7L, Mean Corpuscular Volume 81.7, Mean Corpuscular Hemoglobin 25.4L, Mean Corpuscular Hemoglobin Concent 31.1L, Red Cell Distribution Width 15.9H, Platelet Count 217, Neutrophils (%) (Auto) 55.0, Lymphocytes (%) (Auto) 27.0, Monocytes (%) (Auto) 9.5H, Eosinophils (%) (Auto) 7.5H, Basophils (%) (Auto) 0.8, Neutrophils # (Auto) 2.7, Lymphocytes # (Auto) 1.3L, Monocytes # (Auto) 0.5, Eosinophils # (Auto) 0.4, Basophils # (Auto) 0.0, Nucleated Red Blood Cells % (auto) 0.0, Anion Gap 6L, Glomerular Filtration Rate > 60.0, Blood Urea Nitrogen 12, Creatinine 0.58, Sodium Level 139, Potassium Level 3.9, Chloride Level 108H, Carbon Dioxide Level 25, Calcium Level 8.8, Phosphorus Level 3.6, Magnesium Level 2.0 03/20/19 08:01: Activated Partial Thromboplast Time 73.7H CBC/BMP Laboratory Tests 03/19/19 17:25 03/20/19 05:36 Red Blood Count 3.27 L, Mean Corpuscular Volume 81.7, Mean Corpuscular Hemoglobin 25.4 L, Mean Corpuscular Hemoglobin Concent 31.1 L, Red Cell Distribution Width 15.9 H, Neutrophils (%) (Auto) 55.0, Lymphocytes (%) (Auto) 27.0, Monocytes (%) (Auto) 9.5 H, Eosinophils (%) (Auto) 7.5 H, Basophils (%) (Auto) 0.8, Neutrophils # (Auto) 2.7, Lymphocytes # (Auto) 1.3 L, Monocytes # (Auto) 0.5, Eosinophils # (Auto) 0.4, Basophils # (Auto) 0.0, Calcium Level 8.8 Microbiology Microbiology 03/18/19 Blood Culture - Preliminary, Resulted No Growth after 48 hours. All Specime... 03/18/19 Blood Culture - Preliminary, Resulted No Growth after 48 hours. All Specime... JAIDEN CARDENAS MD March 20, 2019 17:15
[2019-03-20] MEDS: TPN IV SCH (18:41)
[2019-03-20] MEDS: zolPIDEM CR 6.25MG TABLET (AMBIEN CR) PO SCH (18:41)
[2019-03-20 19:15] LABS: HEMATOCRIT 25.2 % (36.0-47.0); HEMOGLOBIN 8.2 g/dl (12.0-15.5)
[2019-03-20 20:00] VITALS: BP 127/80
[2019-03-20] MEDS: **NOTE PATIENT COMMENT** MISC XX SCH (21:22)
[2019-03-20 23:59] VITALS: BP 111/58
[2019-03-21] MEDS: MORPHINE 4 MG/ML 1ML VIAL/SYRINGE (J2270) IV PRN ×4 (02:48→18:17)
[2019-03-21] MEDS: hydrOXYzine 10MG/5ML SYRUP PO PRN ×2 (03:27→23:21)
[2019-03-21] MEDS: MORPHINE 10MG/0.5ML ORAL CONCENTRATE SOLUTION U/D SL PRN ×4 (03:50→19:38)
[2019-03-21] MEDS: ACETAMINOPHEN TAB 650MG DOSE (2X325MG) PO PRN ×3 (03:50→19:37)
[2019-03-21 04:00] VITALS: BP 106/57
[2019-03-21 05:07] LABS: BASO % 0.5 % (0.0-1.0); EOS # 0.4 10^3/uL (0.0-0.50); EOS % 8.5 % (0.0-3.0); HEMATOCRIT 26.6 % (36.0-47.0); HEMOGLOBIN 8.2 g/dl (12.0-15.5); LYMPH # 1.2 10^3/uL (1.5-4.5); LYMPH % 27.3 % (24.0-44.0); MEAN CORPUSCULAR HEMOGLOBIN 26.4 pg (27.0-33.0); MEAN CORPUSCULAR HGB CONC 30.8 g/dl (32.0-36.5); MEAN CORPUSCULAR VOLUME 85.5 fl (80.0-96.0); MONO # 0.4 10^3/uL (0.0-0.8); MONO % 9.2 % (0.0-5.0); NEUTROPHILS # 2.3 10^3/uL (1.8-7.7); PLATELET COUNT, AUTOMATED 211 10^3/uL (150-450); RED BLOOD COUNT 3.11 10^6/uL (4.00-5.40); WHITE BLOOD COUNT 4.3 10^3/uL (4.0-10.0)
[2019-03-21 05:31] LABS: BLOOD UREA NITROGEN 13 MG/DL (7-18); CALCIUM LEVEL 8.3 MG/DL (8.5-10.1); CARBON DIOXIDE LEVEL 28 MEQ/L (21-32); CHLORIDE LEVEL 106 MEQ/L (98-107); CREATININE FOR GFR 0.56 MG/DL (0.55-1.30); GLOMERULAR FILTRATION RATE > 60.0 (>58); GLUCOSE, FASTING 98 MG/DL (70-100); MAGNESIUM LEVEL 2.1 MG/DL (1.8-2.4); PHOSPHORUS LEVEL 4.1 MG/DL (2.5-4.9); SODIUM LEVEL 139 MEQ/L (136-145)
[2019-03-21] MEDS: ADVAIR HFA 115/21MCG INHALER INH SCH ×2 (07:21→20:56)
[2019-03-21 08:00] VITALS: BP 108/56
[2019-03-21] MEDS: ONDANSETRON 4MG/2ML VIAL (J2405) IV PRN ×2 (08:15→18:18)
[2019-03-21] MEDS: FLUoxetine 20 MG CAP PO SCH (09:32)
[2019-03-21] MEDS: LIDOCAINE 5% (LIDODERM) PATCH TD SCH (09:33)
[2019-03-21] MEDS: ENOXAPARIN 100MG/1ML SYRINGE (J1650) SC SCH ×2 (09:33→20:44)
[2019-03-21] MEDS ORDERED: diphenhydrAMINE INJ 50MG/ML VIAL (J1200) IV ONE (11:30)
[2019-03-21] MEDS ORDERED: ACETAMINOPHEN TAB 650MG DOSE (2X325MG) PO ONE (11:30)
[2019-03-21 12:00] VITALS: BP 105/53
--- NOTE | 2019-03-21 14:23 | IPNPDOC ---
Subjective Date Seen The patient was seen on 03/21/19. 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 She also reports she still has some pressure sensation behind her right eyeit does not appear to be clearing/watering as much today. Still has some persistent numbness over the right lower aspect of face/upper neck and some tingling in her right handunchanged from yesterday. No new numbness or weakness otherwise. Hasn't had any bleeding per rectum thus farreports no bowel movement since admissionreports this is usual for her and that she can go up to a week without a bowel movement. Does not feel constipated. Urinating okay. Reports she is feeling dizzy and also has palpitations with minimal movement/sitting up in bed, with ambulating to the bathroom. Reports the dizziness seems worse todayit was a little better after she had initially received the first unit of packed RBC. Tolerating oral liquids. Abdominal pain in left upper quadrantunchanged. Objective Physical Examination General Exam: Positive: Alert, Cooperative, No Acute Distress, Other (sitting up in bed) Eye Exam: Positive: PERRLA ENT Exam: Positive: Mucous membr. moist/pink Neck Exam: Positive: Other (Right upper chest wall [place] catheter in place. No obvious swelling in the neck/upper chest) Chest Exam: Positive: Clear to auscultation; Negative: Rales, Rhonchi, Wheezing Heart Exam: Positive: Tachycardic, Regular Rhythm, Normal S1, Normal S2 Abdomen Exam: Positive: Soft, Other (minimal tenderness left upper quadrant, no guarding or rigidity) Extremity Exam: Negative: Edema Neuro Exam: Positive: Other ('s 2-12 appear intact except for patient's reported numbness of the right lower part of face/right upper neck. Right upper endarterectomy strength testing somewhat Limited secondary to the pain but patient does seem to have fair mechanical designer strength at least 4+ over 5 strength for flexion/extension at the right elbow as well as 4+ over 5 for hip flexion on the right side. 4+ to 5 over 5 for plantar and dorsiflexion at right ankle. 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 Advised patient to try to self administer the enoxaparin to get familiar with the same. -She will require 3-6 months of anticoagulation per previous discussion with Dr Perez -Patient reports protein S deficiency Chronic gastrointestinal bleeding: -Monitor H&H every 12 hours -hemoglobin 8.2 this morning patient reports symptoms of dizziness that is worsening as well as tachycardia even at rest. -Status post 1 unit packed RBCs as farordered 2nd unit of packed RBC in setting of symptomatic anemia Symptomatic anemia: -Management as noted above. -Patient to receive second unit of packed RBC today. Serratia marcescens bacteremia and septic emboli on outpatient treatment with IV ceftriaxone: -Status post completion of treatment with IV ceftriaxone of initially 4 weeks followed by another 3 weeks -Appreciate input by ID -Repeat blood cultures showing no growth thus far -CRP normal -Patient's reported fever could have been related to the underlying thrombosis Right neck/right upper extremity numbness: -As noted, neurologic exam is somewhat limited secondary to patient's pain in the right shoulder as well as right hip. Exam is unchanged from yesterday. -Head CT was unremarkable - no stroke/bleed identified -Clinically, no definitive findings suggestive of stroke -Symptoms may be related to the pain related to the thrombosis Shortness of breath: -? 2/2 anemia -CT angiogram of chest did not show any evidence of pulmonary embolism and the previously noted septic emboli appear improved Short gut syndrome on chronic TPN: -Continue TPN - patient is bringing in her custom home TPN supply -Per discussion with pharmacy, if patient is discharged home on the weekend, she will not be able to get her outpatient TPN until Saturday Chronic abdominal pain as well as right neck pain: -Sublingual liquid morphine prn, prn IV morphine -Ct lidocaine patch Nausea: -When necessary Zofran -Clear liquid diet DVT prophylaxis: -sc enoxaparin GI prophylaxis: -Ordered IV Protonix. Disposition: Anticipate possible discharge home on Saturday if patient does not have any problems with per rectal bleeding on the subcutaneous enoxaparin. We will also await final recommendations from vascular surgery as regards any need to change the patient's [place] catheter, although this appears to be working well at this time and could likely be preserved. Plan/VTE VTE Prophylaxis Ordered?: Yes VS, I&O, 24H, Fishbone Vital Signs/I&O Vital Signs Date Time Temp Pulse Resp B/P (MAP) Pulse Ox O2 Delivery O2 Flow Rate FiO2 03/21/19 13:00 16 03/21/19 12:00 97.9 91 105/53 (70) 97 I&O- Last 24 Hours up to 6 AM 03/21/19 06:00 Intake Total 912 ml Output Total 2250 ml Balance -1338 ml Laboratory Data 24H LABS Laboratory Tests 2 03/21/19 04:22: Immature Granulocyte % (Auto) 0.5, White Blood Count 4.3, Red Blood Count 3.11L, Hemoglobin 8.2L, Hematocrit 26.6L, Mean Corpuscular Volume 85.5, Mean Corpuscular Hemoglobin 26.4L, Mean Corpuscular Hemoglobin Concent 30.8L, Red Cell Distribution Width 16.4H, Platelet Count 211, Neutrophils (%) (Auto) 54.0, Lymphocytes (%) (Auto) 27.3, Monocytes (%) (Auto) 9.2H, Eosinophils (%) (Auto) 8.5H, Basophils (%) (Auto) 0.5, Neutrophils # (Auto) 2.3, Lymphocytes # (Auto) 1.2L, Monocytes # (Auto) 0.4, Eosinophils # (Auto) 0.4, Basophils # (Auto) 0.0, Nucleated Red Blood Cells % (auto) 0.0, Activated Partial Thromboplast Time 56.1H, Anion Gap 5L, Glomerular Filtration Rate > 60.0, Blood Urea Nitrogen 13, Creatinine 0.56, Sodium Level 139, Potassium Level 4.0, Chloride Level 106, Carbon Dioxide Level 28, Calcium Level 8.3L, Phosphorus Level 4.1, Magnesium Level 2.1 03/21/19 11:32: Activated Partial Thromboplast Time 38.9H CBC/BMP Laboratory Tests 03/20/19 18:59 03/21/19 04:22 Red Blood Count 3.11 L, Mean Corpuscular Volume 85.5, Mean Corpuscular Hemoglobin 26.4 L, Mean Corpuscular Hemoglobin Concent 30.8 L, Red Cell Distribution Width 16.4 H, Neutrophils (%) (Auto) 54.0, Lymphocytes (%) (Auto) 2 7.3, Monocytes (%) (Auto) 9.2 H, Eosinophils (%) (Auto) 8.5 H, Basophils (%) (Auto) 0.5, Neutrophils # (Auto) 2.3, Lymphocytes # (Auto) 1.2 L, Monocytes # (Auto) 0.4, Eosinophils # (Auto) 0.4, Basophils # (Auto) 0.0, Calcium Level 8.3 L Microbiology Microbiology 03/18/19 Blood Culture - Preliminary, Resulted No Growth after 48 hours. All Specime... 03/18/19 Blood Culture - Preliminary, Resulted No Growth after 72 hours. All specime... JAIDEN CARDENAS MD Mar 21, 2019 14:23
[2019-03-21 16:00] VITALS: BP 113/58
[2019-03-21] MEDS: PANTOPRAZOLE 40MG INJ (PROTONIX) (C9113) IV SCH (17:03)
[2019-03-21] MEDS: SODIUM CHLORIDE 0.9% INJ 10 ML SYR IV PRN (17:04)
[2019-03-21 18:12] LABS: HEMATOCRIT 30.6 % (36.0-47.0); HEMOGLOBIN 9.3 g/dl (12.0-15.5); MEAN CORPUSCULAR HEMOGLOBIN 25.8 pg (27.0-33.0); MEAN CORPUSCULAR HGB CONC 30.4 g/dl (32.0-36.5); MEAN CORPUSCULAR VOLUME 84.8 fl (80.0-96.0); PLATELET COUNT, AUTOMATED 221 10^3/uL (150-450); RED BLOOD COUNT 3.61 10^6/uL (4.00-5.40); WHITE BLOOD COUNT 4.8 10^3/uL (4.0-10.0)
[2019-03-21] MEDS: TPN IV SCH (18:16)
[2019-03-21] MEDS: zolPIDEM CR 6.25MG TABLET (AMBIEN CR) PO SCH (18:18)
[2019-03-21 20:00] VITALS: BP_SYST 112; BP_SYST 121; BP_DIAS 59; BP_DIAS 72
[2019-03-21] MEDS: LORazepam 2 MG/ML VIAL (J2060) IV PRN (20:45)
[2019-03-21] MEDS: MORPHINE 4 MG/ML 1ML VIAL/SYRINGE (J2270) IV SCH (20:45)
[2019-03-21] MEDS: **NOTE PATIENT COMMENT** MISC XX SCH (21:00)
[2019-03-21] MEDS: MORPHINE 10MG/0.5ML ORAL CONCENTRATE SOLUTION U/D SL SCH (23:17)
[2019-03-22] MEDS: MORPHINE 4 MG/ML 1ML VIAL/SYRINGE (J2270) IV SCH ×6 (00:53→20:36)
[2019-03-22] MEDS: MORPHINE 10MG/0.5ML ORAL CONCENTRATE SOLUTION U/D SL SCH ×6 (02:35→22:38)
[2019-03-22 04:00] VITALS: BP 100/59
[2019-03-22 05:14] LABS: BASO % 0.7 % (0.0-1.0); EOS # 0.3 10^3/uL (0.0-0.50); EOS % 7.3 % (0.0-3.0); HEMATOCRIT 29.2 % (36.0-47.0); HEMOGLOBIN 8.9 g/dl (12.0-15.5); LYMPH # 1.1 10^3/uL (1.5-4.5); LYMPH % 24.9 % (24.0-44.0); MEAN CORPUSCULAR HEMOGLOBIN 25.8 pg (27.0-33.0); MEAN CORPUSCULAR HGB CONC 30.5 g/dl (32.0-36.5); MEAN CORPUSCULAR VOLUME 84.6 fl (80.0-96.0); MONO # 0.5 10^3/uL (0.0-0.8); MONO % 12.1 % (0.0-5.0); NEUTROPHILS # 2.4 10^3/uL (1.8-7.7); NEUTROPHILS % 54.8 % (36.0-66.0); PLATELET COUNT, AUTOMATED 221 10^3/uL (150-450); RED BLOOD COUNT 3.45 10^6/uL (4.00-5.40); WHITE BLOOD COUNT 4.4 10^3/uL (4.0-10.0)
[2019-03-22 05:23] LABS: BLOOD UREA NITROGEN 10 MG/DL (7-18); CALCIUM LEVEL 8.9 MG/DL (8.5-10.1); CARBON DIOXIDE LEVEL 31 MEQ/L (21-32); CHLORIDE LEVEL 106 MEQ/L (98-107); CREATININE FOR GFR 0.55 MG/DL (0.55-1.30); GLOMERULAR FILTRATION RATE > 60.0 (>58); GLUCOSE, FASTING 102 MG/DL (70-100); MAGNESIUM LEVEL 2.2 MG/DL (1.8-2.4); PHOSPHORUS LEVEL 4.3 MG/DL (2.5-4.9); POTASSIUM SERUM 4.6 MEQ/L (3.5-5.1); SODIUM LEVEL 143 MEQ/L (136-145)
[2019-03-22] MEDS: ADVAIR HFA 115/21MCG INHALER INH SCH ×2 (07:24→20:52)
[2019-03-22 08:00] VITALS: BP 122/63
[2019-03-22] MEDS: ONDANSETRON 4MG/2ML VIAL (J2405) IV PRN ×2 (08:35→16:30)
[2019-03-22] MEDS: ENOXAPARIN 100MG/1ML SYRINGE (J1650) SC SCH ×2 (08:37→20:37)
[2019-03-22] MEDS: FLUoxetine 20 MG CAP PO SCH (08:38)
[2019-03-22] MEDS: LIDOCAINE 5% (LIDODERM) PATCH TD SCH (08:39)
[2019-03-22] MEDS: SODIUM CHLORIDE 0.9% INJ 10 ML SYR IV SCH (08:39)
[2019-03-22 12:00] VITALS: BP 115/61
--- NOTE | 2019-03-22 13:11 | IPNPDOC ---
Subjective Date Seen The patient was seen on 03/22/19. 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 The patient is a 39-year-old female who was referred as an admission by Dr. Trevizo from vascular surgery. The patient was undergoing outpatient evaluation and had an ultrasound done of the right IJ in setting of a [place] catheter which was placed about weeks ago. She was found to have thrombosis involving the right IJ and was referred for admission given concerns regarding history of GI bleed. The patient reports on and off problems with bleeding per rectumdescribed as a mix of black and fresh red blood. Reports it has been occurring almost on a daily basis. Patient also had been receiving IV ceftriaxone for Serratia bacteremia and septic emboli. Events since last encounter The patient reports significant pain involving her right neck and right shoulder unchangedreports she reports its worse today. Reports she was not able to sleep last night secondary to the pain. She reports she still has pressure like sensation behind the right eye. She still has numbness involving the right lower part of her face/right upper part of her neck, as well as tingling involving her right upper extremityunchanged. Reports the dizziness seems a little better after she received blood yesterday. Denies any chest pain. No overt shortness of breath at this time. Left upper quadrant abdominal painunchanged. Reports she chronically has nauseathis is unchanged. Tolerating liquids by mouth however. No vomiting. Hasn't had a bowel movement yet and has not had any bleeding per rectum. Objective Physical Examination General Exam: Positive: Alert, Cooperative, No Acute Distress, Other (sitting up in bed) Eye Exam: Positive: PERRLA ENT Exam: Positive: Mucous membr. moist/pink Neck Exam: Positive: Other (Right upper chest wall [place] catheter in place. No obvious swelling in the neck/upper chest) Chest Exam: Positive: Clear to auscultation; Negative: Rales, Rhonchi, Wheezing Heart Exam: Positive: Tachycardic, Regular Rhythm, Normal S1, Normal S2 Abdomen Exam: Positive: Soft, Other (minimal tenderness left upper quadrant, no guarding or rigidity) Extremity Exam: Negative: Edema Skin Exam: Positive: Other skin issue (right upper chest wall [place] catheter in placedressing appears intact.) Neuro Exam: Positive: Other (moving all 4 extremitiesright upper extremity and right lower extremity strength testing is somewhat limited secondary to pain. No obvious unilateral deficits. Speech is normal. 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 Patient was able to self administer the Lovenox -She will require 3-6 months of anticoagulation per previous discussion with Dr Perez -Patient reports protein S deficiency Chronic gastrointestinal bleeding: -Monitor H&H every 12 hours -hemoglobin 8.9 this morning after second unit of PRBC yesterday 03/21/19 patient reports symptoms of dizziness that is worsening as well as tachycardia even at rest. -Status post 2 unit packed RBCs thus far, no obvious bleeding noted yet Symptomatic anemia: -Management as noted above. -Dizziness a little better after the second unit of packed RBC yesterday Serratia marcescens bacteremia and septic emboli on outpatient treatment with IV ceftriaxone: -Status post completion of treatment with IV ceftriaxone of initially 4 weeks followed by another 3 weeks -Appreciate input by ID -Repeat blood cultures showing no growth thus far -CRP normal -Patient's reported fever could have been related to the underlying thrombosis Right neck/right upper extremity numbness: -Suspect related to the underlying right IJ/subclavian vein thrombosis -No concerning findings on clinical examno local swelling/erythema/drainage at site of [place] catheter -Head CT was unremarkable - no stroke/bleed identified -Clinically, no definitive findings suggestive of stroke Shortness of breath: -? 2/2 anemia -CT angiogram of chest did not show any evidence of pulmonary embolism and the previously noted septic emboli appear improved Short gut syndrome on chronic TPN: -Continue TPN - patient is bringing in her custom home TPN supply Chronic abdominal pain as well as right neck pain: -Sublingual liquid morphine prn, prn IV morphine -Patient reports worsening pain over the neck, however, on exam, no change. -Continue current dose of oral and IV morphine. -Ct lidocaine patch Nausea: -When necessary Zofran -Clear liquid diet DVT prophylaxis: -sc enoxaparin GI prophylaxis: -Ordered IV Protonix. Disposition: Patient's [place] catheter appears to be working and she certainly requires it for TPNwe may be able to leave the catheter in. Plan will be for 3- 6 months minimum of enoxaparin per discussion with Dr. Perez. Anticipate eventual discharge home once pain is adequately controlled with by mouth medications as well as once cleared by vascular surgery. Plan/VTE VTE Prophylaxis Ordered?: Yes VS, I&O, 24H, Fishbone Vital Signs/I&O Vital Signs Date Time Temp Pulse Resp B/P (MAP) Pulse Ox O2 Delivery O2 Flow Rate FiO2 03/22/19 12:37 18 03/22/19 12:00 97.2 103 115/61 (79) 95 I&O- Last 24 Hours up to 6 AM 03/22/19 06:00 Intake Total 1340 ml Output Total 400 ml Balance 940 ml Laboratory Data 24H LABS Laboratory Tests 2 03/21/19 18:04: Nucleated Red Blood Cells % (auto) 0.0 03/22/19 04:37: Anion Gap 6L, Glomerular Filtration Rate > 60.0, Blood Urea Nitrogen 10, Creatinine 0.55, Sodium Level 143, Potassium Level 4.6, Chloride Level 106, Carbon Dioxide Level 31, Calcium Level 8.9, Phosphorus Level 4.3, Magnesium Level 2.2 03/22/19 04:38: Nucleated Red Blood Cells % (auto) 0.0, Immature Granulocyte % (Auto) 0.2, White Blood Count 4.4, Red Blood Count 3.45L, Hemoglobin 8.9L, Hematocrit 29.2L, Mean Corpuscular Volume 84.6, Mean Corpuscular Hemoglobin 25.8L, Mean Corpuscular Hemoglobin Concent 30.5L, Red Cell Distribution Width 16.2H, Platelet Count 221, Neutrophils (%) (Auto) 54.8, Lymphocytes (%) (Auto) 24.9, Monocytes (%) (Auto) 12.1H, Eosinophils (%) (Auto) 7.3H, Basophils (%) (Auto) 0.7, Neutrophils # (Au to) 2.4, Lymphocytes # (Auto) 1.1L, Monocytes # (Auto) 0.5, Eosinophils # (Auto) 0.3, Basophils # (Auto) 0.0 CBC/BMP Laboratory Tests 03/21/19 18:04 Red Blood Count 3.61 L, Mean Corpuscular Volume 84.8, Mean Corpuscular Hemoglobin 25.8 L, Mean Corpuscular Hemoglobin Concent 30.4 L, Red Cell Distribution Width 16.2 H 03/22/19 04:37 Calcium Level 8.9 03/22/19 04:38 Red Blood Count 3.45 L, Mean Corpuscular Volume 84.6, Mean Corpuscular Hemoglobin 25.8 L, Mean Corpuscular Hemoglobin Concent 30.5 L, Red Cell Distribution Width 16.2 H, Neutrophils (%) (Auto) 54.8, Lymphocytes (%) (Auto) 24.9, Monocytes (%) (Auto) 12.1 H, Eosinophils (%) (Auto) 7.3 H, Basophils (%) (Auto) 0.7, Neutrophils # (Auto) 2.4, Lymphocytes # (Auto) 1.1 L, Monocytes # (Auto) 0.5, Eosinophils # (Auto) 0.3, Basophils # (Auto) 0.0 Microbiology Microbiology 03/18/19 Blood Culture - Preliminary, Resulted No Growth after 72 hours. All specime... 03/18/19 Blood Culture - Preliminary, Resulted No Growth after 72 hours. All specime... JAIDEN CARDENAS MD Mar 22, 2019 13:10
[2019-03-22] MEDS: PANTOPRAZOLE 40MG INJ (PROTONIX) (C9113) IV SCH (15:38)
[2019-03-22 16:00] VITALS: BP 92/65
[2019-03-22] MEDS: SODIUM CHLORIDE 0.9% INJ 10 ML SYR IV PRN (16:31)
[2019-03-22] MEDS: ACETAMINOPHEN TAB 650MG DOSE (2X325MG) PO PRN ×2 (16:39→22:43)
[2019-03-22] MEDS: TPN IV SCH (17:48)
[2019-03-22 18:17] LABS: HEMATOCRIT 31.7 % (36.0-47.0); HEMOGLOBIN 9.7 g/dl (12.0-15.5)
[2019-03-22] MEDS: zolPIDEM CR 6.25MG TABLET (AMBIEN CR) PO SCH (18:53)
[2019-03-22 20:00] VITALS: BP 108/61
[2019-03-22] MEDS: **NOTE PATIENT COMMENT** MISC XX SCH (21:00)
[2019-03-22 23:59] VITALS: BP 105/57
[2019-03-23] MEDS: MORPHINE 4 MG/ML 1ML VIAL/SYRINGE (J2270) IV SCH ×6 (00:44→20:16)
[2019-03-23] MEDS: LORazepam 2 MG/ML VIAL (J2060) IV PRN ×2 (00:45→22:21)
[2019-03-23] MEDS: ONDANSETRON 4MG/2ML VIAL (J2405) IV PRN ×3 (00:45→22:21)
[2019-03-23] MEDS: MORPHINE 10MG/0.5ML ORAL CONCENTRATE SOLUTION U/D SL SCH ×6 (02:34→22:25)
[2019-03-23 04:00] VITALS: BP 99/57
[2019-03-23 05:01] LABS: BASO % 0.7 % (0.0-1.0); EOS # 0.4 10^3/uL (0.0-0.50); EOS % 8.1 % (0.0-3.0); HEMATOCRIT 30.3 % (36.0-47.0); HEMOGLOBIN 9.4 g/dl (12.0-15.5); LYMPH # 0.9 10^3/uL (1.5-4.5); MEAN CORPUSCULAR HEMOGLOBIN 26.9 pg (27.0-33.0); MEAN CORPUSCULAR VOLUME 86.8 fl (80.0-96.0); MONO # 0.5 10^3/uL (0.0-0.8); MONO % 11.5 % (0.0-5.0); NEUTROPHILS # 2.5 10^3/uL (1.8-7.7); NEUTROPHILS % 58.2 % (36.0-66.0); PLATELET COUNT, AUTOMATED 212 10^3/uL (150-450); RED BLOOD COUNT 3.49 10^6/uL (4.00-5.40); WHITE BLOOD COUNT 4.3 10^3/uL (4.0-10.0)
[2019-03-23 05:34] LABS: BLOOD UREA NITROGEN 12 MG/DL (7-18); CALCIUM LEVEL 8.7 MG/DL (8.5-10.1); CARBON DIOXIDE LEVEL 30 MEQ/L (21-32); CHLORIDE LEVEL 105 MEQ/L (98-107); CREATININE FOR GFR 0.59 MG/DL (0.55-1.30); GLOMERULAR FILTRATION RATE > 60.0 (>58); GLUCOSE, FASTING 103 MG/DL (70-100); MAGNESIUM LEVEL 2.3 MG/DL (1.8-2.4); PHOSPHORUS LEVEL 4.7 MG/DL (2.5-4.9); POTASSIUM SERUM 4.6 MEQ/L (3.5-5.1); SODIUM LEVEL 142 MEQ/L (136-145)
[2019-03-23] MEDS: ADVAIR HFA 115/21MCG INHALER INH SCH ×2 (07:59→20:36)
[2019-03-23 08:00] VITALS: BP 111/62
[2019-03-23] MEDS: LIDOCAINE 5% (LIDODERM) PATCH TD SCH (08:34)
[2019-03-23] MEDS: FLUoxetine 20 MG CAP PO SCH (08:34)
[2019-03-23] MEDS: ENOXAPARIN 100MG/1ML SYRINGE (J1650) SC SCH ×2 (08:34→20:15)
[2019-03-23] MEDS: SODIUM CHLORIDE 0.9% INJ 10 ML SYR IV SCH (09:57)
[2019-03-23 12:00] VITALS: BP 117/59
[2019-03-23] MEDS: PANTOPRAZOLE 40MG INJ (PROTONIX) (C9113) IV SCH (15:04)
[2019-03-23 16:00] VITALS: BP 119/73
[2019-03-23] MEDS: TPN IV SCH (16:57)
--- NOTE | 2019-03-23 17:13 | IPNPDOC ---
Text Note Date of Service The patient was seen on 03/23/19. NOTE Claude is seen on bedside rounds this morning, she is complaining of some weak ness in right UE and some blurred vision/pressure behind right eye. She also says her right shoulder is still achy. ROS: 12 point ROS reviewed with patient and negative except for pertinent positives/negatives in subjective. SUBJECTIVE: Patient is sitting in bed, pleasant and comfortable. Except for above complaints or right shoulder achiness, some right UE weakness and right eye pressure/blurry vision, she statss she feels well. Otherwise patient denies chest pain, shortness breath, nausea, vomiting, fevers, chills OBJECTIVE PHYSICAL EXAMINATION: VITAL SIGNS: Please see below. GENERAL: Pleasant 39 yp female sitting up in bed awake alert oriented speaking in complete sentences no acute distress HEENT: Moist mucous membranes no elevation and CVP CARDIOVASCULAR: S1 S2 regular no additional heart sounds appreciated RESPIRATORY: Clear to auscultation bilaterally, no wheezing, rales or rhonchi appreciated ABDOMINAL: Bowel sounds present abdomen soft and nontender] EXTREMITIES: No clubbing cyanosis or edema NEUROLOGICAL: Spontaneously moves all 4 extremities, cranial 2 through 12 int act, some right upper extremity weakness and altered sensation compared to left PSYCHOLOGICAL: Appropriate affect LABORATORY DATA, MICROBIOLOGY: Please see below. ASSESSMENT AND PLAN: This is a 39 yo female admitted for right IC and subclavian vein thrombosis in setting of levine catheter. Problems: 1. Right IJ and subclavian vein thrombosis in setting of Levine catheter: -Patient is being seen by vascular surgery - appreciate input, -Did not have any problems with per rectal bleeding despite IV heparin this stay- switched to subcutaneous enoxaparin 03/21/19- monitor for any bleeding - n one thus far. Patient was able to self administer the Lovenox -She will require 3-6 months of anticoagulation per previous discussion with Dr Perez -Patient reports protein S deficiency 2. Chronic gastrointestinal bleeding: -she self reports history of crohns disease and frequent blood in stool at home -Monitor H&H every 12 hours -hemoglobin 9.4, s/p 2 uPRBC -no obvious bleeding noted yet 3. Symptomatic anemia: -Management as noted above. -Dizziness improved after transfusions 4. Serratia marcescens bacteremia and septic emboli on outpatient treatment with IV ceftriaxone: -S/p IV ceftriaxone of initially 4 weeks followed by another 3 weeks -Appreciate input by ID -Repeat blood cultures showing no growth thus far 72 hours -CRP normal -Patient's reported fever could have been related to the underlying thrombosis 5. Right neck/right upper extremity numbness: -Suspect related to the underlying right IJ/subclavian vein thrombosis -No concerning findings on clinical exam, some weakness and altered sensation in right UE., c/w monitoring for now, if symptoms worsen consider head CT and neurology consultno local swelling/erythema/drainage at site of Levine catheter-it is clean, dry and intact -Initial head CT was unremarkable - no stroke/bleed identified 6 Shortness of breath: -Likely secondary to anemia, improved today -CT angiogram of chest did not show any evidence of pulmonary embolism and the previously noted septic emboli appear improved 7. Short gut syndrome on chronic TPN: -Continue TPN 8. Chronic abdominal pain as well as right neck pain: -Sublingual liquid morphine prn, prn IV morphine -Ct lidocaine patch Disposition: Patient's Levine catheter appears to be working and she certainly requires it for TPNwe may be able to leave the catheter in. Plan will be for 3- 6 months minimum of enoxaparin. Anticipate eventual discharge home once pain is adequately controlled with by mouth medications as well as once cleared by vascular surgery. VS,Fishbone, I+O VS, Fishbone, I+O Laboratory Tests 03/22/19 17:52 03/23/19 04:47 Red Blood Count 3.49 L, Mean Corpuscular Volume 86.8, Mean Corpuscular Hemoglobin 26.9 L, Mean Corpuscular Hemoglobin Concent 31.0 L, Red Cell Distribution Width 16.2 H, Neutrophils (%) (Auto) 58.2, Lymphocytes (%) (Auto) 21.0 L, Monocytes (%) (Auto) 11.5 H, Eosinophils (%) (Auto) 8.1 H, Basophils (%) (Auto) 0.7, Neutrophils # (Auto) 2.5, Lymphocytes # (Auto) 0.9 L, Monocytes # (Auto) 0.5, Eosinophils # (Auto) 0.4, Basophils # (Auto) 0.0, Calcium Level 8.7 Vital Signs Date Time Temp Pulse Resp B/P (MAP) Pulse Ox O2 Delivery O2 Flow Rate FiO2 03/23/19 16:00 97.9 88 16 119/73 (79) 98 I&O- Last 24 Hours up to 6 AM 03/23/19 06:00 Intake Total 2365 ml Output Total 1200 ml Balance 1165 ml GME ATTESTATION GME ATTESTATION My faculty preceptor for this patient encounter was physically present during the encounter and was fully available. All aspects of the patient interview, examination, medical decision making process, and medical care plan development were reviewed and approved by the faculty preceptor. The faculty preceptor is aware and concurs with the plan as stated in the body of this note and will attest to such by his/her cosignature. ATTENDING NOTE I, Ruben Farfan, have both independently examined this patient as well as reviewed the documentation. I have discussed in detail with the resident the findings and plan of treatment as documented in the residents documentation and agree with what is stated. I will continue to follow the patient and offer further guidance to the patients care as necessary during this hospital stay. ANNIE ADAMS DO Mar 23, 2019 17:13 RUBEN FARFAN MD Mar 23, 2019 17:25
[2019-03-23] MEDS ORDERED: FAT EMULSION IV 20% 500 ML IV SCH (18:00)
[2019-03-23] MEDS ORDERED: MULTIVITAMIN -ADULT INJECTION 10 ML, CR/CU/SE/MN/ZN INJ 1 ML in AMINO AC/ELECTROLYTE/DE... IV SCH (18:00)
[2019-03-23] MEDS ORDERED: HumaLOG INSULIN (NovoLOG) PER UNIT SC SCH (18:00)
[2019-03-23 18:36] LABS: HEMOGLOBIN 9.5 g/dl (12.0-15.5)
--- NOTE | 2019-03-23 18:48 | IPN ---
DATE: 03/23/2019 Claude seems to be doing fairly well except for neck pain. She is using a heating pad on her neck. She has remained afebrile throughout this admission. From 03/18/2019 to 03/23/2019, she has had no fever. LABORATORY DATA: White count is 4.3, hemoglobin 9.4, hematocrit 30.3, platelets 212, 58% neutrophils, 21% lymphocytes, 11% monocytes. Sodium is 142, potassium 4.6, chloride 105, bicarbonate 30, BUN 12, creatinine 0.59, glucose 103, calcium 8.7, magnesium 2.3. CRP less than 0.3. Albumin 3.7. Blood cultures two sets on 03/18/2019 were negative. Intravenous (IV) Rocephin was discontinued on 03/19/2019. IMPRESSION: 1. History of Lyme infection with Serratia status post removal of [id number]-[id number] and placement of Galicia catheter with no evidence of recurrent infection. 2. Right internal jugular (IJ) and subclavian vein thrombosis in the setting of new Galicia catheter. The patient currently on subcutaneous enoxaparin with no evidence of bleeding. 3. Chronic gastrointestinal (GI) bleeding. Patient needs a followup with [facility] GI attending. Her appointment is not until end of April. This needs to be moved sooner to hopefully get rid of this Galicia catheter and start enteral feeding. PLAN: Will obtain blood cultures in the morning from her Galicia catheter to document clearance of infection, as the cultures done on admission were still on antibiotics. Review of CT angiogram shows no evidence of pulmonary embolism, improving appearance of previously noted septic emboli, which have decreased in size or have resolved and no new acute mediastinal or pleural parenchymal process.
[2019-03-23 20:00] VITALS: BP 113/70
[2019-03-23] MEDS: zolPIDEM CR 6.25MG TABLET (AMBIEN CR) PO SCH (20:14)
[2019-03-23] MEDS: **NOTE PATIENT COMMENT** MISC XX SCH (21:00)
--- NOTE | 2019-03-23 21:32 | REPVR ---
EXAM: CT Head Without Contrast EXAM DATE/TIME: 03/23/2019 7:56 PM CLINICAL HISTORY: 39 years old, female; Signs and symptoms; Other: Eval for CVA; Additional info: Evaluate for CVA TECHNIQUE: Imaging protocol: Axial computed tomography images of the head without contrast. Radiation optimization: All CT scans at this facility use at least one of these dose optimization techniques: automated exposure control; mA and/or kV adjustment per patient size (includes targeted exams where dose is matched to clinical indication); or iterative reconstruction. COMPARISON: CT Head without contrast 03/20/2019 1:48 PM FINDINGS: Brain: The white-[place] differentiation is preserved demonstrating no acute territorial type infarct. No acute intracranial hemorrhage is seen. No intracranial mass effect. Midline shift: There is no midline shift. Ventricles: No ventriculomegaly. Bones/joints: The calvarium demonstrates no evidence for a depressed fracture. Sinuses: Visualized sinuses are unremarkable. No fluid levels. Mastoid air cells: No mastoid effusion. Soft tissues: Unremarkable. IMPRESSION: 1. No acute intracranial abnormality. 2. If further evaluation is clinically indicated, an MRI of the brain is recommended. Electronically signed by: Steve Alexander On 03/23/2019 21:32:38 PM
[2019-03-23 23:59] VITALS: BP 116/57
[2019-03-24] MEDS: hydrOXYzine 10MG/5ML SYRUP PO PRN (00:15)
[2019-03-24] MEDS: MORPHINE 4 MG/ML 1ML VIAL/SYRINGE (J2270) IV SCH ×4 (00:15→12:42)
[2019-03-24] MEDS: MORPHINE 10MG/0.5ML ORAL CONCENTRATE SOLUTION U/D SL SCH ×4 (01:59→14:31)
[2019-03-24] MEDS: ACETAMINOPHEN TAB 650MG DOSE (2X325MG) PO PRN (04:14)
[2019-03-24 05:18] LABS: BASO % 0.7 % (0.0-1.0); EOS # 0.5 10^3/uL (0.0-0.50); EOS % 8.3 % (0.0-3.0); HEMATOCRIT 30.7 % (36.0-47.0); HEMOGLOBIN 9.5 g/dl (12.0-15.5); LYMPH # 1.1 10^3/uL (1.5-4.5); LYMPH % 20.5 % (24.0-44.0); MEAN CORPUSCULAR HEMOGLOBIN 27.2 pg (27.0-33.0); MEAN CORPUSCULAR HGB CONC 30.9 g/dl (32.0-36.5); MONO # 0.5 10^3/uL (0.0-0.8); MONO % 9.7 % (0.0-5.0); NEUTROPHILS # 3.4 10^3/uL (1.8-7.7); NEUTROPHILS % 60.6 % (36.0-66.0); PLATELET COUNT, AUTOMATED 228 10^3/uL (150-450); RED BLOOD COUNT 3.49 10^6/uL (4.00-5.40); WHITE BLOOD COUNT 5.6 10^3/uL (4.0-10.0)
[2019-03-24 05:40] LABS: BLOOD UREA NITROGEN 11 MG/DL (7-18); CALCIUM LEVEL 8.2 MG/DL (8.5-10.1); CARBON DIOXIDE LEVEL 28 MEQ/L (21-32); CHLORIDE LEVEL 104 MEQ/L (98-107); CREATININE FOR GFR 0.86 MG/DL (0.55-1.30); GLOMERULAR FILTRATION RATE > 60.0 (>58); GLUCOSE, FASTING 139 MG/DL (70-100); MAGNESIUM LEVEL 2.1 MG/DL (1.8-2.4); SODIUM LEVEL 139 MEQ/L (136-145)
[2019-03-24] MEDS: LORazepam 2 MG/ML VIAL (J2060) IV PRN (06:23)
[2019-03-24 08:00] VITALS: BP 111/66
[2019-03-24] MEDS: ADVAIR HFA 115/21MCG INHALER INH SCH ×2 (08:12→20:23)
[2019-03-24] MEDS: ENOXAPARIN 100MG/1ML SYRINGE (J1650) SC SCH ×2 (08:26→20:26)
[2019-03-24] MEDS: FLUoxetine 20 MG CAP PO SCH (08:26)
[2019-03-24] MEDS: SODIUM CHLORIDE 0.9% INJ 10 ML SYR IV SCH (08:27)
[2019-03-24] MEDS ORDERED: ISOVUE-370 76% 100ML VIAL (Q9967) As Ordered ONE (09:09)
[2019-03-24] MEDS: LIDOCAINE 5% (LIDODERM) PATCH TD SCH (11:13)
--- NOTE | 2019-03-24 11:37 | IPNPDOC ---
Date Seen The patient was seen on 03/24/19. Progress Note Ms. Diaz is seen on bedside rounds this morning. She reports tingling sensations in the right UE, right neck, right jaw, and right cheek. Pt reports that there is no difficulty with movement and usage of her right hand. She also reports blurred vision/pressure behind her right eye with throbbing pain in her right neck and posterior right head. Patient rates the pain as a 4/10 this morning during rounds however states that the pain was a 9/10 during the previous night that got moderately better with Morphine. Patient denies pain and tingling on the left face and left UE. She says her right shoulder is achy and that the pain gets worse on movement. She also reports nausea this morning that subsided with Ondansetron. ROS: 12 point ROS reviewed with patient and negative except for pertinent positives/negatives in subjective. SUBJECTIVE: Patient is a 39 y/o woman sitting in bed, pleasant and comfortable. Except for the above complaints of right shoulder throbbing, some right UE and jaw paresthesia, and right eye pressure/blurry vision, she states that she feels well. Patient reported 9/10 head pain last night that has been reduced to 4/10 with Morphine administration. Otherwise patient denies chest pain, sob, vomiting, fevers, and chills. She did report nausea this morning that subsided with Ondansetron. OBJECTIVE PHYSICAL EXAMINATION: VITAL SIGNS: Please see below. GENERAL: Pleasant 39 yo female sitting up in bed awake, alert, oriented speaking in complete sentences in no acute distress. HEENT: Moist mucous membranes no elevation and CVP CARDIOVASCULAR: S1 S2 regular, no additional heart sounds appreciated RESPIRATORY: Clear to auscultation bilaterally, no wheezing, rales or rhonchi appreciated ABDOMINAL: Bowel sounds present in all 4 quadrants. Tenderness to light and deep palpation in LUQ. No tenderness in RUQ, RLQ, or LLQ. No rebound or guarding. EXTREMITIES: No clubbing cyanosis or edema NEUROLOGICAL: Spontaneously moves all 4 extremities. Cranial nerves 2 through 12 intact. Some diminished strength of right upper extremity on flexion, extension, adduction and abduction. Equal sensation of UE and LE bilaterally. Diminished sensation in the Cranial Nerve V2 and V3 distribution on the right. Reflexes intact b/l upper and lower extremities. PSYCHOLOGICAL: Appropriate affect LABORATORY DATA, IMAGING STUDIES, MICROBIOLOGY: Please see below. ASSESSMENT AND PLAN: This is a 39 yo female admitted for right IJ and subclavian vein thrombosis in setting of Galicia catheter. PROBLEMS: 1. 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 Patient was able to self administer the Lovenox - She will require 3-6 months of anticoagulation per previous discussion with Dr. Perez - Patient reports protein S deficiency 2. Chronic gastrointestinal bleeding: - She self reports a history of Crohns Disease and frequent blood in stool at home with associated abdominal cramping - Monitor h/h every 12 hours - hemoglobin 9.5, s/p 2 uPRCBC 3. Symptomatic anemia: - Management as noted above - Dizziness improved after transfusions 4. Serratia marcescens bacteremia and septic emboli on outpatient treatment with IV ceftriazone: - s/p IV ceftriaxone of initially 4 weeks followed by another 3 weeks - Appreciate input by ID - Repeated blood cultures 03.24.19, results pending, cultures from Galicia cath. - Patient's reported fever could have been related to the underlying thrombosis 5. Right neck/right upper extremity numbness: - Suspect related to the underlying right IJ/subclavian vein thrombosis - sensation and reflexes intact b/l upper and lower extremities - Some weakness appreciated in right UE and altered sensation in cranial nerve V2 and V3 distribution on the right face. c/w monitoring for now. Spoke with neurology, appreciate input. CT venogram performed this morning, results pending. - No local swelling/erythema/drainage at site of Galicia catheter - it is clean, dry and intact - Head CT preformed on 03.20.19 and 03.23.19 were unremarkable - no stroke/bleed identified 6. Shortness of breath: - Likely secondary to anemia, improved today - CT angiogram of chest did not show any evidence of pulmonary embolism and the previously noted septic emboli appeared improved 7. 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 Chronic abdominal pain as well as right neck pain: - Sublingual liquid morphine prn, prn IV morphine - Ct lidocaine patch DISPOSITION: Patient's Galicia catheter appears to be working and she certainly requires it for TPN - we may be able to leave the catheter in. Plan will be for 3-6 months minimum of enoxaparin. Anticipate eventual discharge home once pain is adequately controlled with by mouth medications as well as once cleared by vascular surgery. She should have neg cultures from Galicia cath before d/c to ensure resolution of infection. Venogram pending. VS, I&O, 24H, Fishbone Vital Signs/I&O Vital Signs Date Time Temp Pulse Resp B/P (MAP) Pulse Ox O2 Delivery O2 Flow Rate FiO2 03/24/19 08:26 20 03/24/19 08:00 97.5 100 111/66 (81) 97 I&O- Last 24 Hours up to 6 AM 03/24/19 06:00 Intake Total 2180 ml Output Total 1800 ml Balance 380 ml Laboratory Data 24H LABS Laboratory Tests 2 03/24/19 04:56: Immature Granulocyte % (Auto) 0.2, White Blood Count 5.6, Red Blood Count 3.49L, Hemoglobin 9.5L, Hematocrit 30.7L, Mean Corpuscular Volume 88.0, Mean Corpuscular Hemoglobin 27.2, Mean Corpuscular Hemoglobin Concent 30.9L, Red Cell Distribution Width 16.1H, Platelet Count 228, Neutrophils (%) (Auto) 60.6, Lymphocytes (%) (Auto) 20.5L, Monocytes (%) (Auto) 9.7H, Eosinophils (%) (Auto) 8.3H, Basophils (%) (Auto) 0.7, Neutrophils # (Auto) 3.4, Lymphocytes # (Auto) 1.1L, Monocytes # (Auto) 0.5, Eosinophils # (Auto) 0.5, Basophils # (Auto) 0.0, Nucleated Red Blood Cells % (auto) 0.0, Anion Gap 7L, Glomerular Filtration Rate > 60.0, Blood Urea Nitrogen 11, Creatinine 0.86, Sodium Level 139, Potassium Level 4.0, Chloride Level 104, Carbon Dioxide Level 28, Calcium Level 8.2L, Magnesium Level 2.1 CBC/BMP Laboratory Tests 03/23/19 18:19 03/24/19 04:56 Red Blood Count 3.49 L, Mean Corpuscular Volume 88.0, Mean Corpuscular Hemoglobin 27.2, Mean Corpuscular Hemoglobin Concent 30.9 L, Red Cell Distribution Width 16.1 H, Neutrophils (%) (Auto) 60.6, Lymphocytes (%) (Auto) 20.5 L, Monocytes (%) (Auto) 9.7 H, Eosinophils (%) (Auto) 8.3 H, Basophils (%) (Auto) 0.7, Neutrophils # (Auto) 3.4, Lymphocytes # (Auto) 1.1 L, Monocytes # (Auto) 0.5, Eosinophils # (Auto) 0.5, Basophils # (Auto) 0.0, Calcium Level 8.2 L Microbiology Microbiology 03/24/19 Blood Culture, Received Pending 03/18/19 Blood Culture - Final, Complete NO GROWTH AFTER 5 DAYS 03/18/19 Blood Culture - Final, Complete NO GROWTH AFTER 5 DAYS GME ATTESTATION GME ATTESTATION My faculty preceptor for this patient encounter was physically present during the encounter and was fully available. All aspects of the patient interview, examination, medical decision making process, and medical care plan development were reviewed and approved by the faculty preceptor. The faculty preceptor is aware and concurs with the plan as stated in the body of this note and will attest to such by his/her cosignature. ATTENDING NOTE I, Ruben Farfan, have both independently examined this patient as well as reviewed the documentation. I have discussed in detail with the resident the findings and plan of treatment as documented by the resident. I agree with their findings and treatment plan. I will continue to follow the patient and offer further guidance to the patients care as necessary during this hospital stay. KEYSHA DELEON OMS-3 Mar 24, 2019 11:37 ANNIE ADAMS DO Mar 24, 2019 11:43 RUBEN FARFAN MD Mar 24, 2019 14:15
[2019-03-24 12:00] VITALS: BP 102/50
[2019-03-24] MEDS: ONDANSETRON 4MG/2ML VIAL (J2405) IV PRN ×2 (12:42→20:26)
[2019-03-24] MEDS ORDERED: oxyCODONE 5MG TAB PO PRN ×2 (15:15→17:00)
[2019-03-24] MEDS ORDERED: MORPHINE 4 MG/ML 1ML VIAL/SYRINGE (J2270) IV PRN (15:15)
[2019-03-24 16:00] VITALS: BP 114/63
[2019-03-24] MEDS: PANTOPRAZOLE 40MG INJ (PROTONIX) (C9113) IV SCH (16:26)
[2019-03-24 17:48] LABS: HEMATOCRIT 30.3 % (36.0-47.0); HEMOGLOBIN 9.2 g/dl (12.0-15.5)
[2019-03-24] MEDS ORDERED: AMINO AC/ELECTROLYTE/DEX/CALC 2,000 ML IV SCH (18:00)
[2019-03-24] MEDS ORDERED: FAT EMULSION IV 20% 500 ML IV SCH (18:00)
[2019-03-24] MEDS: zolPIDEM CR 6.25MG TABLET (AMBIEN CR) PO SCH (18:01)
[2019-03-24 20:00] VITALS: BP 116/61
[2019-03-24] MEDS: **NOTE PATIENT COMMENT** MISC XX SCH (20:14)
[2019-03-25] VITALS: BP 120/69
[2019-03-25] MEDS: ACETAMINOPHEN TAB 650MG DOSE (2X325MG) PO PRN (00:26)
[2019-03-25] MEDS ORDERED: oxyCODONE 5MG TAB PO ONE (00:45)
== END 2019-03-25 01:15 | disposition left against medical advice (07) | DRG 206 ==
LOC: M IRPRO 06:34 → M ICU 11:23 → M PCU 03-19 09:19
PROVIDERS: ADMIT Internal Medicine; ATTEND Internal Medicine
PROC: 30233N1 Transfusion of Nonautologous Red Blood Cells into Peripheral Vein, Percutaneous Approach (ICD-10-PCS; principal; 2019-03-19)
DX: T82.818A Embolism due to vascular prosthetic devices, implants and grafts, initial encounter (principal); D68.59 Other primary thrombophilia; K91.2 Postsurgical malabsorption, not elsewhere classified; K92.2 Gastrointestinal hemorrhage, unspecified; K31.84 Gastroparesis; Y83.1 Surgical operation with implant of artificial internal device as the cause of abnormal reaction of the patient, or of later complication, without mention of misadventure at the time of the procedure; F32.9 Major depressive disorder, single episode, unspecified; F41.9 Anxiety disorder, unspecified; D64.9 Anemia, unspecified; M54.2 Cervicalgia; Z98.84 Bariatric surgery status; Z88.2 Allergy status to sulfonamides; Z88.1 Allergy status to other antibiotic agents; Z88.5 Allergy status to narcotic agent; Z88.6 Allergy status to analgesic agent; Z88.8 Allergy status to other drugs, medicaments and biological substances; Z86.711 Personal history of pulmonary embolism; Z91.018 Allergy to other foods; Z86.14 Personal history of Methicillin resistant Staphylococcus aureus infection; Z79.891 Long term (current) use of opiate analgesic; Z79.899 Other long term (current) drug therapy

== ENCOUNTER → 2019-04-08 | Outpatient (REF) | payer OTHER ==
[~2019-04-08] MED LIST changes: +ALBU83IN INH; +BREO1INH INH; +ENOX60IN3 SQ; +FLUO20CA8 PO; +KETOROLAC 0.5% OD; -ONDA4VLL INJ; +ONDA4VLL IV; +VENTAER INH; +ZOLP6.25 PO
[2019-04-08 18:08] LABS: BASO % 0.8 % (0.0-1.0); EOS # 0.1 10^3/uL (0.0-0.50); EOS % 2.8 % (0.0-3.0); HEMATOCRIT 29.3 % (36.0-47.0); HEMOGLOBIN 9.3 g/dl (12.0-15.5); LYMPH # 1.6 10^3/uL (1.5-4.5); LYMPH % 31.8 % (24.0-44.0); MEAN CORPUSCULAR HEMOGLOBIN 26.5 pg (27.0-33.0); MEAN CORPUSCULAR HGB CONC 31.7 g/dl (32.0-36.5); MEAN CORPUSCULAR VOLUME 83.5 fl (80.0-96.0); MONO # 0.4 10^3/uL (0.0-0.8); MONO % 7.9 % (0.0-5.0); NEUTROPHILS # 2.8 10^3/uL (1.8-7.7); NEUTROPHILS % 56.3 % (36.0-66.0); PLATELET COUNT, AUTOMATED 298 10^3/uL (150-450); RED BLOOD COUNT 3.51 10^6/uL (4.00-5.40); WHITE BLOOD COUNT 4.9 10^3/uL (4.0-10.0)
[2019-04-08 18:31] LABS: ALBUMIN 3.6 GM/DL (3.2-5.2); ALT/SGPT 25 U/L (12-78); BILIRUBIN,TOTAL 0.5 MG/DL (0.2-1.0); BLOOD UREA NITROGEN 6 MG/DL (7-18); CALCIUM LEVEL 8.4 MG/DL (8.5-10.1); CARBON DIOXIDE LEVEL 25 MEQ/L (21-32); CHLORIDE LEVEL 109 MEQ/L (98-107); CREATININE FOR GFR 0.72 MG/DL (0.55-1.30); GLOMERULAR FILTRATION RATE > 60.0 (>58); GLUCOSE, FASTING 96 MG/DL (70-100); MAGNESIUM LEVEL 2.3 MG/DL (1.8-2.4); PHOSPHORUS LEVEL 4.6 MG/DL (2.5-4.9); POTASSIUM SERUM 4.2 MEQ/L (3.5-5.1); SODIUM LEVEL 142 MEQ/L (136-145); TOTAL PROTEIN 6.4 GM/DL (6.4-8.2)
== END ==
LOC: M LAB REF 16:30
PROVIDERS: ATTEND Internal Medicine Gastroenterology
DX: K31.84 Gastroparesis (principal)

== ENCOUNTER → 2019-04-15 | Outpatient (REF) | payer OTHER ==
[2019-04-15 16:03] LABS: BASO % 0.8 % (0.0-1.0); EOS # 0.2 10^3/uL (0.0-0.50); EOS % 4.3 % (0.0-3.0); HEMATOCRIT 31.5 % (36.0-47.0); HEMOGLOBIN 9.7 g/dl (12.0-15.5); LYMPH # 1.6 10^3/uL (1.5-4.5); LYMPH % 30.6 % (24.0-44.0); MEAN CORPUSCULAR HEMOGLOBIN 25.7 pg (27.0-33.0); MEAN CORPUSCULAR HGB CONC 30.8 g/dl (32.0-36.5); MEAN CORPUSCULAR VOLUME 83.6 fl (80.0-96.0); MONO # 0.5 10^3/uL (0.0-0.8); MONO % 9.1 % (0.0-5.0); NEUTROPHILS # 2.9 10^3/uL (1.8-7.7); PLATELET COUNT, AUTOMATED 295 10^3/uL (150-450); RED BLOOD COUNT 3.77 10^6/uL (4.00-5.40); WHITE BLOOD COUNT 5.3 10^3/uL (4.0-10.0)
[2019-04-15 16:35] LABS: ALBUMIN 3.9 GM/DL (3.2-5.2); ALT/SGPT 22 U/L (12-78); BILIRUBIN,TOTAL 0.4 MG/DL (0.2-1.0); BLOOD UREA NITROGEN 6 MG/DL (7-18); CALCIUM LEVEL 9.1 MG/DL (8.5-10.1); CARBON DIOXIDE LEVEL 23 MEQ/L (21-32); CHLORIDE LEVEL 112 MEQ/L (98-107); CREATININE FOR GFR 0.62 MG/DL (0.55-1.30); GLOMERULAR FILTRATION RATE > 60.0 (>58); GLUCOSE, FASTING 68 MG/DL (70-100); MAGNESIUM LEVEL 2.4 MG/DL (1.8-2.4); PHOSPHORUS LEVEL 4.3 MG/DL (2.5-4.9); POTASSIUM SERUM 3.7 MEQ/L (3.5-5.1); SODIUM LEVEL 142 MEQ/L (136-145); TOTAL PROTEIN 6.8 GM/DL (6.4-8.2)
== END ==
LOC: M LAB REF 15:48
PROVIDERS: ATTEND Internal Medicine Gastroenterology
DX: K31.84 Gastroparesis (principal)

== ENCOUNTER → 2019-04-19 | Outpatient (REF) | payer OTHER ==
[2019-04-19 15:21] LABS: BASO % 0.8 % (0.0-1.0); EOS # 0.3 10^3/uL (0.0-0.50); EOS % 7.5 % (0.0-3.0); HEMOGLOBIN 8.9 g/dl (12.0-15.5); LYMPH # 1.1 10^3/uL (1.5-4.5); LYMPH % 27.9 % (24.0-44.0); MEAN CORPUSCULAR HEMOGLOBIN 25.9 pg (27.0-33.0); MEAN CORPUSCULAR HGB CONC 30.7 g/dl (32.0-36.5); MEAN CORPUSCULAR VOLUME 84.3 fl (80.0-96.0); MONO # 0.4 10^3/uL (0.0-0.8); MONO % 10.6 % (0.0-5.0); NEUTROPHILS # 2.1 10^3/uL (1.8-7.7); NEUTROPHILS % 52.9 % (36.0-66.0); PLATELET COUNT, AUTOMATED 239 10^3/uL (150-450); RED BLOOD COUNT 3.44 10^6/uL (4.00-5.40); WHITE BLOOD COUNT 3.9 10^3/uL (4.0-10.0)
[2019-04-19 15:44] LABS: ALBUMIN 3.5 GM/DL (3.2-5.2); ALT/SGPT 198 U/L (12-78); BILIRUBIN,TOTAL 0.3 MG/DL (0.2-1.0); BLOOD UREA NITROGEN 6 MG/DL (7-18); CALCIUM LEVEL 8.4 MG/DL (8.5-10.1); CARBON DIOXIDE LEVEL 24 MEQ/L (21-32); CHLORIDE LEVEL 113 MEQ/L (98-107); CREATININE FOR GFR 0.64 MG/DL (0.55-1.30); GLOMERULAR FILTRATION RATE > 60.0 (>58); GLUCOSE, FASTING 85 MG/DL (70-100); POTASSIUM SERUM 3.9 MEQ/L (3.5-5.1); SODIUM LEVEL 143 MEQ/L (136-145); TOTAL PROTEIN 6.3 GM/DL (6.4-8.2)
== END ==
LOC: M LAB REF 10:43
PROVIDERS: ATTEND Internal Medicine Gastroenterology
DX: K31.84 Gastroparesis (principal)

== ENCOUNTER → 2019-04-26 | Outpatient (REF) | payer OTHER ==
[~2019-04-26] MED LIST changes: +CYAN100049 PO; -VITA10002 PO
[2019-04-26 15:36] LABS: BASO % 1.3 % (0.0-1.0); EOS # 0.3 10^3/uL (0.0-0.50); EOS % 8.8 % (0.0-3.0); HEMOGLOBIN 9.7 g/dl (12.0-15.5); LYMPH # 1.2 10^3/uL (1.5-4.5); LYMPH % 37.1 % (24.0-44.0); MEAN CORPUSCULAR HEMOGLOBIN 25.9 pg (27.0-33.0); MEAN CORPUSCULAR HGB CONC 31.3 g/dl (32.0-36.5); MEAN CORPUSCULAR VOLUME 82.9 fl (80.0-96.0); MONO # 0.5 10^3/uL (0.0-0.8); MONO % 14.5 % (0.0-5.0); NEUTROPHILS # 1.2 10^3/uL (1.8-7.7); NEUTROPHILS % 38.3 % (36.0-66.0); PLATELET COUNT, AUTOMATED 258 10^3/uL (150-450); RED BLOOD COUNT 3.74 10^6/uL (4.00-5.40); WHITE BLOOD COUNT 3.2 10^3/uL (4.0-10.0)
[2019-04-26 15:48] LABS: ALBUMIN 3.5 GM/DL (3.2-5.2); ALT/SGPT 99 U/L (12-78); BILIRUBIN,TOTAL 0.4 MG/DL (0.2-1.0); BLOOD UREA NITROGEN 5 MG/DL (7-18); CALCIUM LEVEL 8.9 MG/DL (8.5-10.1); CARBON DIOXIDE LEVEL 30 MEQ/L (21-32); CHLORIDE LEVEL 104 MEQ/L (98-107); GLOMERULAR FILTRATION RATE > 60.0 (>58); GLUCOSE, FASTING 82 MG/DL (70-100); MAGNESIUM LEVEL 2.2 MG/DL (1.8-2.4); PHOSPHORUS LEVEL 5.5 MG/DL (2.5-4.9); POTASSIUM SERUM 4.3 MEQ/L (3.5-5.1); SODIUM LEVEL 140 MEQ/L (136-145); TOTAL PROTEIN 6.6 GM/DL (6.4-8.2)
== END ==
LOC: M LAB REF 15:28
PROVIDERS: ATTEND Internal Medicine Gastroenterology
DX: K31.84 Gastroparesis (principal)

== ENCOUNTER → 2019-04-30 | Outpatient (REF) | payer OTHER ==
[2019-04-30 17:25] LABS: BASO # 0.1 10^3/uL (0.0-0.2); BASO % 0.8 % (0.0-1.0); EOS # 0.1 10^3/uL (0.0-0.50); HEMATOCRIT 35.4 % (36.0-47.0); LYMPH % 15.7 % (24.0-44.0); MEAN CORPUSCULAR HEMOGLOBIN 25.6 pg (27.0-33.0); MEAN CORPUSCULAR HGB CONC 31.1 g/dl (32.0-36.5); MEAN CORPUSCULAR VOLUME 82.3 fl (80.0-96.0); MONO # 0.4 10^3/uL (0.0-0.8); MONO % 6.9 % (0.0-5.0); NEUTROPHILS # 4.7 10^3/uL (1.8-7.7); NEUTROPHILS % 75.4 % (36.0-66.0); PLATELET COUNT, AUTOMATED 372 10^3/uL (150-450); WHITE BLOOD COUNT 6.3 10^3/uL (4.0-10.0)
[2019-04-30 17:39] LABS: BLOOD UREA NITROGEN 8 MG/DL (7-18); CALCIUM LEVEL 9.2 MG/DL (8.5-10.1); CARBON DIOXIDE LEVEL 24 MEQ/L (21-32); CHLORIDE LEVEL 106 MEQ/L (98-107); CREATININE FOR GFR 0.54 MG/DL (0.55-1.30); GLOMERULAR FILTRATION RATE > 60.0 (>58); GLUCOSE, FASTING 130 MG/DL (70-100); POTASSIUM SERUM 4.4 MEQ/L (3.5-5.1); SODIUM LEVEL 139 MEQ/L (136-145)
== END ==
LOC: M SFHCPLAZ 15:43
PROVIDERS: ATTEND Family Medicine
DX: R68.83 Chills (without fever) (principal)

== ENCOUNTER → 2019-05-06 | Outpatient (REF) | payer OTHER ==
[2019-05-06 16:11] LABS: BASO % 0.8 % (0.0-1.0); EOS # 0.3 10^3/uL (0.0-0.50); EOS % 5.6 % (0.0-3.0); HEMOGLOBIN 9.7 g/dl (12.0-15.5); LYMPH # 1.1 10^3/uL (1.5-4.5); LYMPH % 22.9 % (24.0-44.0); MEAN CORPUSCULAR HEMOGLOBIN 25.3 pg (27.0-33.0); MEAN CORPUSCULAR HGB CONC 31.3 g/dl (32.0-36.5); MEAN CORPUSCULAR VOLUME 80.9 fl (80.0-96.0); MONO # 0.5 10^3/uL (0.0-0.8); MONO % 10.2 % (0.0-5.0); NEUTROPHILS # 2.9 10^3/uL (1.8-7.7); NEUTROPHILS % 60.3 % (36.0-66.0); PLATELET COUNT, AUTOMATED 355 10^3/uL (150-450); RED BLOOD COUNT 3.83 10^6/uL (4.00-5.40); WHITE BLOOD COUNT 4.8 10^3/uL (4.0-10.0)
[2019-05-06 16:44] LABS: ALBUMIN 3.9 GM/DL (3.2-5.2); ALT/SGPT 32 U/L (12-78); BILIRUBIN,TOTAL 0.6 MG/DL (0.2-1.0); BLOOD UREA NITROGEN 6 MG/DL (7-18); CALCIUM LEVEL 8.8 MG/DL (8.5-10.1); CARBON DIOXIDE LEVEL 27 MEQ/L (21-32); CHLORIDE LEVEL 106 MEQ/L (98-107); CREATININE FOR GFR 0.68 MG/DL (0.55-1.30); GLOMERULAR FILTRATION RATE > 60.0 (>58); GLUCOSE, FASTING 84 MG/DL (70-100); MAGNESIUM LEVEL 2.3 MG/DL (1.8-2.4); PHOSPHORUS LEVEL 4.1 MG/DL (2.5-4.9); POTASSIUM SERUM 3.8 MEQ/L (3.5-5.1); SODIUM LEVEL 142 MEQ/L (136-145); TOTAL PROTEIN 6.7 GM/DL (6.4-8.2)
== END ==
LOC: M LAB REF 15:42
PROVIDERS: ATTEND Internal Medicine Gastroenterology
DX: K31.84 Gastroparesis (principal)

== ENCOUNTER → 2019-05-18 | Outpatient (REF) | payer OTHER ==
[2019-05-18 17:05] LABS: BASO % 1.1 % (0.0-1.0); EOS # 0.2 10^3/uL (0.0-0.50); EOS % 5.1 % (0.0-3.0); HEMATOCRIT 35.4 % (36.0-47.0); HEMOGLOBIN 11.5 g/dl (12.0-15.5); LYMPH # 0.9 10^3/uL (1.5-4.5); LYMPH % 23.3 % (24.0-44.0); MEAN CORPUSCULAR HEMOGLOBIN 27.7 pg (27.0-33.0); MEAN CORPUSCULAR HGB CONC 32.5 g/dl (32.0-36.5); MEAN CORPUSCULAR VOLUME 85.3 fl (80.0-96.0); MONO # 0.4 10^3/uL (0.0-0.8); MONO % 10.7 % (0.0-5.0); NEUTROPHILS # 2.2 10^3/uL (1.8-7.7); NEUTROPHILS % 59.3 % (36.0-66.0); PLATELET COUNT, AUTOMATED 283 10^3/uL (150-450); RED BLOOD COUNT 4.15 10^6/uL (4.00-5.40); WHITE BLOOD COUNT 3.7 10^3/uL (4.0-10.0)
[2019-05-18 17:29] LABS: ALT/SGPT 63 U/L (12-78); BILIRUBIN,TOTAL 0.6 MG/DL (0.2-1.0); BLOOD UREA NITROGEN 5 MG/DL (7-18); CALCIUM LEVEL 9.1 MG/DL (8.5-10.1); CARBON DIOXIDE LEVEL 26 MEQ/L (21-32); CHLORIDE LEVEL 109 MEQ/L (98-107); GLOMERULAR FILTRATION RATE > 60.0 (>58); GLUCOSE, FASTING 111 MG/DL (70-100); IRON (FE) 36 UG/DL (50-170); MAGNESIUM LEVEL 2.3 MG/DL (1.8-2.4); PHOSPHORUS LEVEL 3.1 MG/DL (2.5-4.9); POTASSIUM SERUM 3.9 MEQ/L (3.5-5.1); SODIUM LEVEL 141 MEQ/L (136-145); TOTAL PROTEIN 6.7 GM/DL (6.4-8.2); TRIGLYCERIDES LEVEL 68 MG/DL (<150)
== END ==
LOC: M SFHCPLAZ 14:42
PROVIDERS: ATTEND Family Medicine
DX: Z09 Encounter for follow-up examination after completed treatment for conditions other than malignant neoplasm (principal); Z98.84 Bariatric surgery status; Z87.19 Personal history of other diseases of the digestive system

== ENCOUNTER → 2019-05-26 | Outpatient (REF) | payer OTHER ==
[2019-05-26 09:55] LABS: ALBUMIN 3.4 GM/DL (3.2-5.2); ALT/SGPT 124 U/L (12-78); BILIRUBIN,TOTAL 0.6 MG/DL (0.2-1.0); BLOOD UREA NITROGEN 5 MG/DL (7-18); CALCIUM LEVEL 8.4 MG/DL (8.5-10.1); CARBON DIOXIDE LEVEL 30 MEQ/L (21-32); CHLORIDE LEVEL 106 MEQ/L (98-107); CREATININE FOR GFR 0.69 MG/DL (0.55-1.30); GLOMERULAR FILTRATION RATE > 60.0 (>58); GLUCOSE, FASTING 91 MG/DL (70-100); MAGNESIUM LEVEL 2.3 MG/DL (1.8-2.4); PHOSPHORUS LEVEL 3.9 MG/DL (2.5-4.9); POTASSIUM SERUM 4.3 MEQ/L (3.5-5.1); SODIUM LEVEL 140 MEQ/L (136-145); TOTAL PROTEIN 5.9 GM/DL (6.4-8.2)
== END ==
LOC: M LAB REF 09:28
DX: E78.00 Pure hypercholesterolemia, unspecified (principal)

== ENCOUNTER → 2019-06-09 | Outpatient (REF) | payer OTHER ==
[~2019-06-09] MED LIST changes: +ACET-683 PO; +CREO3000; +DOXY25SU; +FLUO20CA20 PO; -FLUO20CA8 PO; +HEPA100I26 IV; +HYDR-3363 PO; +LOPE2CAP; -LORA0.5T11 PO; +LORA0.5T5 PO; -LORA1TAB12 PO; +LORA1TAB4 PO; -OMEP40CA2 PO; +OMEP40CA97 PO; +ONDA-83 PO; -ONDA4TAB5 PO; +OXYC20TA2 PO; +SUCR1ORA PO; -SUCR1SUS PO; +ZYVO1TAB PO
[2019-06-09 15:24] LABS: ALBUMIN 3.2 GM/DL (3.2-5.2); ALT/SGPT 19 U/L (12-78); BILIRUBIN,TOTAL 0.3 MG/DL (0.2-1.0); BLOOD UREA NITROGEN 9 MG/DL (7-18); CALCIUM LEVEL 7.4 MG/DL (8.5-10.1); CARBON DIOXIDE LEVEL 22 MEQ/L (21-32); CHLORIDE LEVEL 116 MEQ/L (98-107); CREATININE FOR GFR 0.72 MG/DL (0.55-1.30); GLOMERULAR FILTRATION RATE > 60.0 (>58); GLUCOSE, FASTING 157 MG/DL (70-100); PHOSPHORUS LEVEL 3.9 MG/DL (2.5-4.9); POTASSIUM SERUM 3.5 MEQ/L (3.5-5.1); SODIUM LEVEL 147 MEQ/L (136-145); TOTAL PROTEIN 5.2 GM/DL (6.4-8.2)
== END ==
LOC: M LAB REF 14:37
PROVIDERS: ATTEND Physician Assistant
DX: Z98.84 Bariatric surgery status (principal)

== ENCOUNTER → 2019-06-09 | Outpatient (REF) | payer OTHER ==
[~2019-06-09] MED LIST changes: -ACET-683 PO; -CREO3000; -DOXY25SU; -FLUO20CA20 PO; +FLUO20CA8 PO; -HEPA100I26 IV; -HYDR-3363 PO; -LOPE2CAP; +LORA0.5T11 PO; -LORA0.5T5 PO; +LORA1TAB12 PO; -LORA1TAB4 PO; +OMEP40CA2 PO; -OMEP40CA97 PO; -ONDA-83 PO; +ONDA4TAB5 PO; -OXYC20TA2 PO; -SUCR1ORA PO; +SUCR1SUS PO; -ZYVO1TAB PO
[2019-06-09 15:09] LABS: HEMATOCRIT 29.6 % (36.0-47.0); HEMOGLOBIN 9.2 g/dl (12.0-15.5); MEAN CORPUSCULAR HEMOGLOBIN 27.1 pg (27.0-33.0); MEAN CORPUSCULAR HGB CONC 31.1 g/dl (32.0-36.5); MEAN CORPUSCULAR VOLUME 87.1 fl (80.0-96.0); PLATELET COUNT, AUTOMATED 248 10^3/uL (150-450); WHITE BLOOD COUNT 4.8 10^3/uL (4.0-10.0)
== END ==
LOC: M LAB REF 14:34
DX: D64.9 Anemia, unspecified (principal)

== ENCOUNTER → 2019-06-21 | Outpatient (REF) | payer BC, OTHER ==
[2019-06-21 17:19] LABS: HEMATOCRIT 28.7 % (36.0-47.0); HEMOGLOBIN 9.1 g/dl (12.0-15.5); MEAN CORPUSCULAR HEMOGLOBIN 27.7 pg (27.0-33.0); MEAN CORPUSCULAR HGB CONC 31.7 g/dl (32.0-36.5); MEAN CORPUSCULAR VOLUME 87.5 fl (80.0-96.0); PLATELET COUNT, AUTOMATED 201 10^3/uL (150-450); RED BLOOD COUNT 3.28 10^6/uL (4.00-5.40); WHITE BLOOD COUNT 5.1 10^3/uL (4.0-10.0)
[2019-06-21 18:09] LABS: ALT/SGPT 44 U/L (12-78); BILIRUBIN,TOTAL 0.3 MG/DL (0.2-1.0); BLOOD UREA NITROGEN 4 MG/DL (7-18); CALCIUM LEVEL 7.4 MG/DL (8.5-10.1); CARBON DIOXIDE LEVEL 23 MEQ/L (21-32); CHLORIDE LEVEL 113 MEQ/L (98-107); CREATININE FOR GFR 0.57 MG/DL (0.55-1.30); GLOMERULAR FILTRATION RATE > 60.0 (>58); GLUCOSE, FASTING 107 MG/DL (70-100); MAGNESIUM LEVEL 1.8 MG/DL (1.8-2.4); PHOSPHORUS LEVEL 3.7 MG/DL (2.5-4.9); POTASSIUM SERUM 3.7 MEQ/L (3.5-5.1); SODIUM LEVEL 144 MEQ/L (136-145); TOTAL PROTEIN 5.2 GM/DL (6.4-8.2); TRIGLYCERIDES LEVEL 266 MG/DL (<150)
== END ==
LOC: M LAB 16:44
PROVIDERS: ATTEND Physician Assistant
DX: E78.00 Pure hypercholesterolemia, unspecified (principal)

== ENCOUNTER → 2019-06-29 | Outpatient (REF) | payer OTHER ==
[2019-06-29 18:02] LABS: HEMATOCRIT 32.2 % (36.0-47.0); HEMOGLOBIN 10.3 g/dl (12.0-15.5); MEAN CORPUSCULAR HEMOGLOBIN 27.8 pg (27.0-33.0); PLATELET COUNT, AUTOMATED 372 10^3/uL (150-450); WHITE BLOOD COUNT 5.9 10^3/uL (4.0-10.0)
[2019-06-29 18:09] LABS: ALBUMIN 3.6 GM/DL (3.2-5.2); ALT/SGPT 35 U/L (12-78); BILIRUBIN,TOTAL 0.4 MG/DL (0.2-1.0); BLOOD UREA NITROGEN 5 MG/DL (7-18); CALCIUM LEVEL 8.6 MG/DL (8.5-10.1); CARBON DIOXIDE LEVEL 20 MEQ/L (21-32); CHLORIDE LEVEL 110 MEQ/L (98-107); CREATININE FOR GFR 0.78 MG/DL (0.55-1.30); GLOMERULAR FILTRATION RATE > 60.0 (>58); GLUCOSE, FASTING 179 MG/DL (70-100); MAGNESIUM LEVEL 2.1 MG/DL (1.8-2.4); POTASSIUM SERUM 3.5 MEQ/L (3.5-5.1); SODIUM LEVEL 143 MEQ/L (136-145)
== END ==
LOC: M LAB REF 17:19
PROVIDERS: ATTEND Physician Assistant
DX: Z79.899 Other long term (current) drug therapy (principal)

== ENCOUNTER → 2019-07-06 | Outpatient (REF) | payer OTHER ==
[~2019-07-06] MED LIST changes: +ACET-683 PO; +HEPA100I26 IV; +HYDR-3363 PO
[2019-07-06 11:33] LABS: HEMOGLOBIN 10.2 g/dl (12.0-15.5); MEAN CORPUSCULAR HEMOGLOBIN 26.4 pg (27.0-33.0); MEAN CORPUSCULAR HGB CONC 30.9 g/dl (32.0-36.5); MEAN CORPUSCULAR VOLUME 85.3 fl (80.0-96.0); PLATELET COUNT, AUTOMATED 343 10^3/uL (150-450); RED BLOOD COUNT 3.87 10^6/uL (4.00-5.40); WHITE BLOOD COUNT 7.9 10^3/uL (4.0-10.0)
[2019-07-06 11:42] LABS: ALBUMIN 3.5 GM/DL (3.2-5.2); ALT/SGPT 18 U/L (12-78); BILIRUBIN,TOTAL 0.5 MG/DL (0.2-1.0); BLOOD UREA NITROGEN 8 MG/DL (7-18); CALCIUM LEVEL 8.5 MG/DL (8.5-10.1); CARBON DIOXIDE LEVEL 25 MEQ/L (21-32); CHLORIDE LEVEL 109 MEQ/L (98-107); CREATININE FOR GFR 0.63 MG/DL (0.55-1.30); GLOMERULAR FILTRATION RATE > 60.0 (>58); GLUCOSE, FASTING 90 MG/DL (70-100); MAGNESIUM LEVEL 2.3 MG/DL (1.8-2.4); PHOSPHORUS LEVEL 2.6 MG/DL (2.5-4.9); POTASSIUM SERUM 3.3 MEQ/L (3.5-5.1); SODIUM LEVEL 142 MEQ/L (136-145); TOTAL PROTEIN 6.4 GM/DL (6.4-8.2)
== END ==
LOC: M LAB REF 10:29
PROVIDERS: ATTEND Physician Assistant
DX: Z87.19 Personal history of other diseases of the digestive system (principal); Z98.84 Bariatric surgery status

== ENCOUNTER 2019-07-13 13:54 | Inpatient (IN) | payer BC, OTHER ==
[~2019-07-13] VITALS: Ht 170.2 cm; Wt 70.0 kg
[~2019-07-13 13:54] MED LIST changes: -ACET-683 PO; -HEPA100I26 IV; -HYDR-3363 PO
[2019-07-13] MEDS ORDERED: MOM 30ML SUSPENSION UDC PO PRN (14:30)
[2019-07-13] MEDS ORDERED: MAALOX 30 ML SUSP *UDC PO PRN (14:30)
[2019-07-13 14:40] VITALS: BP 113/69
[2019-07-13 15:17] LABS: HEMATOCRIT 33.5 % (36.0-47.0); HEMOGLOBIN 10.8 g/dl (12.0-15.5); MEAN CORPUSCULAR HEMOGLOBIN 27.3 pg (27.0-33.0); MEAN CORPUSCULAR HGB CONC 32.2 g/dl (32.0-36.5); MEAN CORPUSCULAR VOLUME 84.6 fl (80.0-96.0); PLATELET COUNT, AUTOMATED 196 10^3/uL (150-450); RED BLOOD COUNT 3.96 10^6/uL (4.00-5.40); WHITE BLOOD COUNT 10.1 10^3/uL (4.0-10.0)
[2019-07-13 15:48] LABS: ALBUMIN 3.8 GM/DL (3.2-5.2); ALT/SGPT 133 U/L (12-78); BILIRUBIN,TOTAL 2.2 MG/DL (0.2-1.0); BLOOD UREA NITROGEN 8 MG/DL (7-18); CALCIUM LEVEL 8.8 MG/DL (8.5-10.1); CARBON DIOXIDE LEVEL 22 MEQ/L (21-32); CHLORIDE LEVEL 107 MEQ/L (98-107); CREATININE FOR GFR 0.76 MG/DL (0.55-1.30); GLOMERULAR FILTRATION RATE > 60.0 (>58); GLUCOSE, FASTING 100 MG/DL (70-100); POTASSIUM SERUM 3.3 MEQ/L (3.5-5.1); SODIUM LEVEL 141 MEQ/L (136-145); TOTAL PROTEIN 7.2 GM/DL (6.4-8.2)
[2019-07-13] MEDS ORDERED: PROMETHAZINE 25 MG SUPP PR PRN (16:00)
[2019-07-13] MEDS ORDERED: oxyCODONE 5MG TAB PO PRN (16:00)
--- NOTE | 2019-07-13 16:15 | HPEPDOC ---
General Date of Admission Jul 13, 2019 at 14:31 Date of Service: Jul 13, 2019 Attending Physician: BETZY PURI MD Chief Complaint The patient is a 39-year-old female admitted with a reason for visit of Infusaport Line Infection. 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 Protein S deficiency, recently treated with ceftriaxone for Serratia and septic emboli, also history of Pseudomonas infection of central line was sent from Dr. Choi was office when she noted some pus coming out of her right [id number]-d-Fakr. Patient offers no complaints. No chest pain, no shortness of breath, no nausea, vomiting, etc. Home Medications Scheduled Enoxaparin Sodium (Enoxaparin Sodium) 60 Mg/0.6 Ml Syringe, 60 MG SQ Q12H, (Reported) Fluoxetine Hcl (Fluoxetine HCl) 20 Mg Capsule, 20 MG PO DAILY, (Reported) Zolpidem Tartrate (Zolpidem Tartrate ER) 6.25 Mg Tab.mphase, 6.25 MG PO QHS, (Reported) [Ketorolac 0.5% Ophth] 100 DROP/5 ML SOLN, 1 DROP OD QID Scheduled PRN Albuterol Sulf (Albuterol Sulfate) 2.5 Mg/3 Ml Vial.neb, 2.5 MG INH Q4H PRN for SHORTNESS OF BREATH, (Reported) Albuterol Sulfate (Ventolin Hfa) 18 Gm Hfa.aer.ad, 2 PUFF INH Q6H PRN for SHORTNESS OF BREATH, (Reported) Ondansetron (Ondansetron HCl 4 mg/2 ml Vial) 4 Mg/2 Ml Inj, 8 MG IV Q8H PRN for NAUSEA OR VOMITING, (Reported) Oxycodone HCl (Oxycodone HCl) 5 Mg Tablet, 5 MG PO Q6H PRN for PAIN, (Reported) MAY TAKE ONE OR TWO TABLETS Promethazine HCl (Phenadoz) 25 Mg Sup, 25 MG PA Q12H PRN for NAUSEA OR VOMITING, (Reported) Allergies Coded Allergies: Sulfa (Sulfonamide Antibiotics) (Verified Allergy, Severe, RESP. PROBLEMS, SWELLING, HIVES, 01/14/19) butorphanol (Verified Allergy, Severe, HIVES/RESP. PROBLEMS (PERCOCET AND TYL#3 OK), 01/14/19) HAS HAD MORPHINE AND DILAUDID IN THE PAST levofloxacin (Verified Allergy, Severe, THROAT SWELLING/HIVES, 01/14/19) tomato (Verified Allergy, Severe, RESP. PROBLEMS, HIVES, 01/14/19) tramadol (Verified Allergy, Severe, SOB - HAS HAD MORPHINE AND DILAUDID IN THE PAST, 01/14/19) scopolamine (Verified Adverse Reaction, Intermediate, VISION LOSS, 01/14/19) NSAIDS (Non-Steroidal Anti-Inflamma (Verified Adverse Reaction, Mild, GASTRIC BYPASS, 01/14/19) Past Medical History Medical History Gastroparesis. Mild absorption after gastric bypass surgery on chronic TPN. Chronic hematochezia, anemia, chronic back pain. Protein S deficiency Remy and Pseudomonas infection thromboses of right IJ Surgical History Gastric bypass surgery, bowel resections 2 secondary to ischemia torsion obstruction, back surgery Family History Significant Family History: No pertinent family hx Social History * Smoker: Denies Alcohol: Denies Drugs: denies A-FIB/CHADSVASC A-FIB History Current/History of A-Fib/PAF?: No Review of Systems Constitutional: Denies: Chills, Fever, Malaise, Night Sweats, Weakness, Fatigue, Weight Loss, Lethargy, Other Eyes: Denies: Pain, Vision change, Conjunctivae inflammation, Eyelid inflammation, Redness, Other ENT: Denies: Head Aches, Ear Pain, Dysphagia, Sinus Congestion, Post Nasal Drip, Sore Throat, Epistaxis, Other Symptoms Pulmonary: Denies: Dyspnea, Cough, Pleuritic Chest Pain, Other Symptoms Cardiovascular: Denies: Chest Pain, Palpitations, Orthopnea, Paroxysmal Noc. Dyspnea, Edema, Lt Headedness, Other Symptoms Gastrointestinal: Denies: Nausea, Vomiting, Abdominal Pain, Diarrhea, Constipation, Melena, Hematochezia, Other Symptoms Hematologic: Denies: Bruising, Bleeding Excessively, Petecchia, Purpura, Enlarged Lymph Nodes, Other Hematologic Endocrine: Denies: Polydipsia, Polyphagia, Polyuria, Heat Intolerance, Cold Intolerance, Other Endocrine Sx Musculoskeletal: Denies: Neck Pain, Back Pain, Shoulder Pain, Arm Pain, Hand Pain, Leg Pain, Foot Pain, Joint Pain, Muscle Pain, Spasms, Other Symptoms Neurological: Denies: Weakness, Numbness, Incoordination, Change in speech, Confusion, Seizures, Other Symptoms Physical Examination General Exam: Positive: Alert, Cooperative Eye Exam: Positive: PERRLA, Conjunctiva & lids normal ENT Exam: Positive: Atraumatic, Mucous membr. moist/pink Neck Exam: Positive: Supple Chest Exam: Positive: Clear to auscultation, Normal air movement Heart Exam: Positive: Rate Normal, Normal S1, Normal S2 Abdomen Exam: Positive: Normal bowel sounds, Soft Extremity Exam: Positive: Normal pulses Skin Exam: Positive: Nl turgor and temperature Neuro Exam: Positive: Strength at 5/5 X4 ext, Sensation Intact Psych Exam: Positive: Mental status NL, Mood NL, Oriented x 3 Vital Signs pending Laboratory Data Labs 24H Laboratory Tests 2 07/13/19 15:03: Nucleated Red Blood Cells % (auto) 0.0, Anion Gap 12, Glomerular Filtration Rate > 60.0, Blood Urea Nitrogen 8, Creatinine 0.76, Sodium Level 141, Potassium Level 3.3L, Chloride Level 107, Carbon Dioxide Level 22, Calcium Level 8.8, Aspartate Amino Transf (AST/SGOT) 166H, Alanine Aminotransferase (ALT/SGPT) 133H, Alkaline Phosphatase 238H, Total Bilirubin 2.2H, Total Protein 7.2, Albumin 3.8, Albumin/Globulin Ratio 1.12 CBC/BMP Laboratory Tests 07/13/19 15:03 Red Blood Count 3.96 L, Mean Corpuscular Volume 84.6, Mean Corpuscular Hemoglobin 27.3, Mean Corpuscular Hemoglobin Concent 32.2, Red Cell Distribution Width 15.6 H, Calcium Level 8.8, Aspartate Amino Transf (AST/SGOT) 166 H, Alanine Aminotransferase (ALT/SGPT) 133 H, Alkaline Phosphatase 238 H, Total Bilirubin 2.2 H, Total Protein 7.2, Albumin 3.8 Microbiology Microbiology 07/13/19 Blood Culture, Received Pending Problems (1) Central line infection Status: Acute Problem Text: Patient sent from Dr. orozco was office secondary to infection of central line " [id number]." Which she uses for TPN and IV antibiotics. Guest discussed with Dr. orozco, she has furthermore allow for Ncovmx-h-Rykg Discussed with patient, as per patient, she always gets them midline placed in before removal of central line and she has no peripheral access whatsoever. . Plan is to get midline placed in first then get Dr. Trevizo to remove the right- sided Npasrs-s-Dtzw. Treat patient with IV antibiotics by ID, through a midline and once cleared from ID, then Urcjnv-[id number] can be reinserted. On the other side. Also while the patient has only midline and TPN can be placed on hold for a few days. Dr. Trevizo's cell phone called and message left for consultation, Dr. Orozco is a lready aware about patient's admission, official consult for both will be placed in in EMR. Continue all present home meds Further pending recommendation from infectious disease and vascular surgery Plan / VTE VTE Prophylaxis Ordered?: Yes BETZY PURI MD Jul 13, 2019 16:15
[2019-07-13] MEDS ORDERED: HEPA100I26 IV (16:53)
[2019-07-13] MEDS ORDERED: HYDR-3363 PO (16:53)
[2019-07-13] MEDS ORDERED: VANCOMYCIN HCL 1,000 MG, VIAL MATE ADAPTER 1 EACH in D5W 250 ML IV SCH (17:00)
[2019-07-13] MEDS ORDERED: ACET-683 PO (17:02)
[2019-07-13] MEDS: hydrOXYzine 50 MG TAB PO PRN ×2 (18:16→21:37)
[2019-07-13 18:37] LABS: GAMMA GLUTAMYLTRANSPEPTIDASE 104 U/L (5-55)
[2019-07-13] MEDS: CEFEPIME HCL 1 GM in D5W MINI-BAG PLUS 50 ML IV SCH (20:00)
[2019-07-13] MEDS: KETOROLAC 0.5% OPHTH SOLN OD SCH (21:00)
[2019-07-13] MEDS ORDERED: VANCOMYCIN HCL 1,000 MG, VIAL MATE ADAPTER 1 EACH in D5W 250 ML IV ONE (21:00)
[2019-07-13] MEDS: ENOXAPARIN 60 MG/0.6 ML SYR (J1650) SC SCH (21:37)
[2019-07-13] MEDS: zolPIDEM CR 6.25MG TABLET (AMBIEN CR) PO PRN (21:37)
[2019-07-13] MEDS: DOCUSATE SODIUM 100 MG CAP PO SCH (21:37)
[2019-07-13] MEDS ORDERED: VANCOMYCIN HCL 500 MG in D5W MINI-BAG PLUS 100 ML IV ONE (22:00)
--- NOTE | 2019-07-13 22:03 | REPVR ---
PROCEDURE INFORMATION: Exam: US Abdomen Limited, Right Upper Quadrant Exam date and time: 07/13/2019 9:30 PM Clinical history: 39 years old, female; Abnormal findings; Abnormal lab test; Other: Hyperbilirubin; Prior surgery; Surgery date: 6+ months; Surgery type: Cholecystectomy; Additional info: Hyperbilirubin on tpn/ line infection TECHNIQUE: Imaging protocol: Real-time ultrasound of the abdomen with image documentation. Examination was focused on the right upper quadrant. COMPARISON: ABD COMPLETE US 01/12/2019 7:21 AM FINDINGS: Liver: The liver demonstrates no focal defects and measures 17.2 cm. There is hepatopetal portal flow. Gallbladder: Status post cholecystectomy. Common bile duct: The CBD measures 12 mm. Pancreas: The pancreas is normal although the tail is not seen. Right kidney: The right kidney is normal measuring 10.3 cm with no hydronephrosis. IMPRESSION: 1. Mild hepatomegaly. 2. Status post cholecystectomy. 3. Slight distention of the CBD measuring 12 mm. Electronically signed by: Bay Schmidt On 07/13/2019 22:03:22 PM
[2019-07-13] MEDS ORDERED: CLINDAMYCIN 150 MG CAP PO ONE (22:30)
[2019-07-13 22:33] VITALS: BP 110/68
[2019-07-14 06:51] VITALS: BP 87/45
[2019-07-14 07:31] VITALS: BP 102/66
[2019-07-14] MEDS: CEFEPIME HCL 1 GM in D5W MINI-BAG PLUS 50 ML IV SCH (08:00)
[2019-07-14] MEDS: ENOXAPARIN 60 MG/0.6 ML SYR (J1650) SC SCH ×2 (08:44→21:20)
[2019-07-14] MEDS: DOCUSATE SODIUM 100 MG CAP PO SCH ×2 (08:44→21:21)
[2019-07-14] MEDS: FLUoxetine 20 MG CAP PO SCH (08:44)
[2019-07-14] MEDS: KETOROLAC 0.5% OPHTH SOLN OD SCH ×4 (08:45→21:00)
[2019-07-14] MEDS: hydrOXYzine 50 MG TAB PO PRN (08:49)
--- NOTE | 2019-07-14 09:40 | CR.PDOC ---
General Date of Consultation: Jul 14, [address] Trevizo. HPI: 39year oldF who was referred to ED from Dr Orozco's office 07/13/19 when she noted some pus coming out of her right Pzggjh-g-Lsiq. Vascular Surgery is consulted for Infuse a Port removal. Denies any fevers, chills, weakness, fatigue, Headache, Chest Pain, Shortness of breath, cough, palpitations, abdominal pain, N/V/D or changes in bowel or bladder habits. PAST MEDICAL HISTORY Inflammatory bowel disease/possible Crohn's disease follows with gastro enterology, currently on TPN History of malabsorption syndrome History of line infection with septic emboli to the lungs, Serratia marcescens, followed by infectious disease,Dr Orozco. History of pulmonary nodules, following with Dr. Chakraborty at [facility]. History of hematuria, recently referred to urology for cystoscopy. H/O GI Bleeding DEPRESSION/ANXIETY HX OF MRSA BACK Pain SURGICAL HISTORY BACK SURGERY DR SU DECOMPRESSION SURGERY 08/2013 Tonsillectomy GASTRIC BYPASS 2008 ENDOMETRIAL ABLATION HYSTERECTOMY HUBBARD CATHETER 05/21/2014 RIGHT LEG WOUND DRAINED-DESIREE 04/2017 LEFT SUBCLAVIAN PORT 10/2017 J-TUBE PLACEMENT AND REMOVAL G-TUBE PLACEMENT 11/2017 SUBCLAVIAN PORT REMOVE 04/2018 PICC LINE 06/2018 SOCHX: Tobacco use: denies ETOH: denies Illicit Drugs: Denies ROS: As noted in HPI, otherwise 11pt ROS of systems reviewed and remarkable for chronic pain. PE: GEN: 39yoF, appears stated age. No acute distress. HEENT: Normocephalic, atraumatic. Moist mucous membranes. CHEST: Regular rate and rhythm, +S1, +S2. LUNGS: Clear to auscultation bilaterally. No wheezes, rales, or rhonchi. Breathing appears symmetric and easy. ABD: Round, soft, non-tender, non-distended. EXT: No lower extremity edema appreciated. SKIN: [place], dry, warm. o rashes. NEURO: Alert and oriented x 3. o focal deficits appreciated. BC x 1 from Port Grm neg rods. BC x 1 Grm neg rods A&P: 1. Line infection. Pt admitted for Infuse a Port infection. Pt with Gm neg bacteremia, IV antibiotics as per ID/Hospitalist. Plan is to remove Right Infuse a Port as per Dr Trevizo this AM. Plan to consider Left sided Infuse a port when cleared as per ID. Thank you for your consultation. We will continue to follow along with you. Vital Signs/I&O Vital Signs Date Time Temp Pulse Resp B/P (MAP) Pulse Ox O2 Delivery O2 Flow Rate FiO2 07/14/19 07:31 102/66 (78) 07/14/19 06:51 97.0 87 16 97 l I&O- Last 24 Hours up to 6 AM 07/14/19 05:59 Intake Total 250 ml Balance 250 ml Laboratory Data Labs 24H Laboratory Tests 2 07/13/19 15:03: Nucleated Red Blood Cells % (auto) 0.0, Anion Gap 12, Glomerular Filtration Rate > 60.0, Blood Urea Nitrogen 8, Creatinine 0.76, Sodium Level 141, Potassium Level 3.3L, Chloride Level 107, Carbon Dioxide Level 22, Calcium Level 8.8, Aspartate Amino Transf (AST/SGOT) 166H, Alanine Aminotransferase (ALT/SGPT) 133H, Alkaline Phosphatase 238H, Total Bilirubin 2.2H, Total Protein 7.2, Albumin 3.8, Gamma Glutamyl Transferase 104H, C-Reactive Protein, Quantitative 14.10H, Albumin/Globulin Ratio 1.12 07/13/19 17:58: Methicillin-Resist S.aureus DNA PCR POSITIVEH 07/13/19 18:00: Urine Color YELLOW, Urine Appearance CLEAR, Urine pH 6.0, Urine Specific Odin 1.013, Urine Protein NEGATIVE, Urine Glucose (UA) NEGATIVE, Urine Ketones NEGATIVE, Urine Blood NEGATIVE, Urine Nitrite NEGATIVE, Urine Bilirubin NEGATIVE, Urine Urobilinogen 4.0H, Urine Leukocyte Esterase NEGATIVE, Urine WBC (Auto) 0, Urine RBC (Auto) 2, Urine Hyaline Casts (Auto) 0, Urine Bacteria (Auto) 1+H, Urine Squamous Epithelial Cells 3, Urine Sperm (Auto) 07/13/19 18:02: CBC/BMP Laboratory Tests 07/13/19 15:03 Red Blood Count 3.96 L, Mean Corpuscular Volume 84.6, Mean Corpuscular Hemoglobin 27.3, Mean Corpuscular Hemoglobin Concent 32.2, Red Cell Distribution Width 15.6 H, Calcium Level 8.8, Aspartate Amino Transf (AST/SGOT) 166 H, Alanine Aminotransferase (ALT/SGPT) 133 H, Alkaline Phosphatase 238 H, Total Bilirubin 2.2 H, Total Protein 7.2, Albumin 3.8 Microbiology Microbiology 07/13/19 Blood Culture - Preliminary, Resulted 07/13/19 Blood Culture - Preliminary, Resulted Allergies Coded Allergies: Sulfa (Sulfonamide Antibiotics) (Verified Allergy, Severe, RESP. PROBLEMS, SWELLING, HIVES, 01/14/19) butorphanol (Verified Allergy, Severe, HIVES/RESP. PROBLEMS (PERCOCET AND TYL#3 OK), 01/14/19) HAS HAD MORPHINE AND DILAUDID IN THE PAST levofloxacin (Verified Allergy, Severe, THROAT SWELLING/HIVES, 01/14/19) tomato (Verified Allergy, Severe, RESP. PROBLEMS, HIVES, 01/14/19) tramadol (Verified Allergy, Severe, SOB - HAS HAD MORPHINE AND DILAUDID IN THE PAST, 01/14/19) scopolamine (Verified Adverse Reaction, Intermediate, VISION LOSS, 01/14/19) NSAIDS (Non-Steroidal Anti-Inflamma (Verified Adverse Reaction, Mild, GASTRIC BYPASS, 01/14/19) Home Medications Scheduled Enoxaparin Sodium (Enoxaparin Sodium) 60 Mg/0.6 Ml Syringe, 60 MG SQ Q12H, (Reported) Fluoxetine Hcl (Fluoxetine HCl) 20 Mg Capsule, 20 MG PO DAILY, (Reported) Heparin Sodium,Porcine/Pf (Heparin 1,000 Unit/10 (100/ml)) 1,000 Unit/10 Ml Syringe, 500 UNIT IV DAILY, (Reported) THROUGH PICC LINE Zolpidem Tartrate (Zolpidem Tartrate ER) 6.25 Mg Tab.mphase, 6.25 MG PO QHS, (Reported) Scheduled PRN Acetaminophen (Acetaminophen) 500 Mg Tablet, 500 MG PO Q6H PRN for PAIN, (Reported) Albuterol Sulf (Albuterol Sulfate) 2.5 Mg/3 Ml Vial.neb, 2.5 MG INH Q4H PRN for SHORTNESS OF BREATH, (Reported) Albuterol Sulfate (Ventolin Hfa) 18 Gm Hfa.aer.ad, 2 PUFF INH Q6H PRN for SHORTNESS OF BREATH, (Reported) Hydroxyzine HCl (Hydroxyzine HCl) 25 Mg Tablet, 25 MG PO Q6H PRN for NAUSEA, (Reported) Ondansetron (Ondansetron HCl 4 mg/2 ml Vial) 4 Mg/2 Ml Inj, 8 MG IV Q8H PRN for NAUSEA OR VOMITING, (Reported) GIVEN THROUGH PICC LINE Oxycodone HCl (Oxycodone HCl) 5 Mg Tablet, 5 MG PO Q6H PRN for PAIN, (Reported) CAN TAKE UP TO 10MG PER DOSE Promethazine HCl (Phenadoz) 25 Mg Sup, 25 MG RI Q12H PRN for NAUSEA OR VOMITING, (Reported) Attending Note Attending Note VASCULAR SURGICAL ATTENDING NOTE: Dr. Jennifer Trevizo M.D. ASSESSMENT: Patient is a 39-year-old female with a right internal jugular vein tunneled central venous catheter with pus draining from around the site and patient with positive blood cultures. Patient requires removal of the right internal jugular vein tunneled central venous catheter but is refusing until she has placement of a temporary line for her IV access. Patient is requesting an increase in her OxyContin as well as Ativan and Benadryl. Patient is stating that she will not undergo removal of the tunneled central venous catheter or placement of a new venous access without sedation. PLAN: Patient will undergo placement of a temporary venous access either via a PICC line or a midline or possibly a triple-lumen catheter. Once the patient has alternative IV access she states that she will allow us to remove her tunneled central venous right internal jugular vein catheter. Kely Flores was the attending vascular surgeon for this patient encounter. The patient was seen, examined, interviewed and evaluated independently by Dr. Carmen Trevizo M.D. Dr. Carmen Trevizo M.D. was fully available during the consultation evaluation. All aspects of the patient interview, examination, medical decision making process, and medical care plan development were reviewed and approved by Dr. Carmen Trevizo M.D. Dr. Carmen Trevizo M.D. is aware and concurs with the plan as stated in the body of this note and will attest to such by his/her cosignature. Patti Jeffers Jul 14, 2019 09:29 Mehdi Trevizo MD Jul 14, 2019 10:13
[2019-07-14] MEDS ORDERED: LIDOCAINE 1% MDV 20ML VIAL As Ordered ONE ×2 (10:11→16:17)
[2019-07-14] MEDS ORDERED: BUPIVACAINE HCL 0.5% 10 ML VIAL As Ordered ONE (10:11)
[2019-07-14] MEDS: diphenhydrAMINE 50 MG CAP PO PRN (10:54)
[2019-07-14] MEDS: oxyCODONE 5MG TAB PO PRN ×2 (10:55→21:21)
[2019-07-14] MEDS ORDERED: LORazepam 0.5 MG TAB PO ONE (11:00)
[2019-07-14] MEDS ORDERED: CEFEPIME HCL 1 GM in D5W MINI-BAG PLUS 50 ML IV SCH (12:00)
[2019-07-14] MEDS ORDERED: CEFEPIME HCL 1 GM in D5W MINI-BAG PLUS 50 ML IM SCH ×3 (12:12→13:00)
[2019-07-14 13:30] VITALS: BP 109/72
[2019-07-14] MEDS ORDERED: LIDOCAINE 2% MDV 20 ML VIAL As Ordered ONE (15:54)
[2019-07-14 17:40] VITALS: BP 122/76
[2019-07-14] MEDS: SODIUM CHLORIDE 0.9% INJ 10 ML SYR IV SCH (18:00)
[2019-07-14 18:12] LABS: MEAN CORPUSCULAR HGB CONC 31.3 g/dl (32.0-36.5); MEAN CORPUSCULAR VOLUME 86.3 fl (80.0-96.0); PLATELET COUNT, AUTOMATED 180 10^3/uL (150-450); RED BLOOD COUNT 3.71 10^6/uL (4.00-5.40); WHITE BLOOD COUNT 4.5 10^3/uL (4.0-10.0)
--- NOTE | 2019-07-14 18:30 | REP ---
Chest x-ray: Two views. History: Right upper quadrant pain. . Comparison study: March 31, 2019 . Findings: The lungs are well inflated and free of infiltrate. The pleural angles are sharp. The heart size is normal. Pulmonary vasculature is not increased. No significant bony abnormality is seen. Impression: Negative chest x-ray. Electronically Signed by Adrian Valdez MD 07/14/2019 06:22 P
[2019-07-14 18:53] LABS: ALBUMIN 3.3 GM/DL (3.2-5.2); ALT/SGPT 76 U/L (12-78); BILIRUBIN,TOTAL 0.7 MG/DL (0.2-1.0); BLOOD UREA NITROGEN 8 MG/DL (7-18); CALCIUM LEVEL 8.3 MG/DL (8.5-10.1); CARBON DIOXIDE LEVEL 22 MEQ/L (21-32); CHLORIDE LEVEL 107 MEQ/L (98-107); CREATININE FOR GFR 0.66 MG/DL (0.55-1.30); GLOMERULAR FILTRATION RATE > 60.0 (>58); GLUCOSE, FASTING 106 MG/DL (70-100); POTASSIUM SERUM 3.6 MEQ/L (3.5-5.1); SODIUM LEVEL 140 MEQ/L (136-145); TOTAL PROTEIN 6.2 GM/DL (6.4-8.2)
[2019-07-14] MEDS: MORPHINE 4 MG/ML 1ML VIAL/SYRINGE (J2270) IV PRN (20:09)
[2019-07-14] MEDS: diphenhydrAMINE INJ 50MG/ML VIAL (J1200) IV PRN (20:09)
--- NOTE | 2019-07-14 20:34 | IPNPDOC ---
Text Note Date of Service The patient was seen on 07/14/19. NOTE Subjective: Patient agitated in the morning, requesting pain medications IV. I explained patient that she will receive pain medications IV after midline placement. During the morning patient multiple times wanted to leave the hospital AMA. Objective: GEN: In severe distress HEENT: Normocephalic, atraumatic. Moist mucous membranes. CHEST: S1-S2, Right infuse a port with visible pus LUNGS: Clear to auscultation bilaterally. No wheezes, rales, or rhonchi. Breathing appears symmetric and easy. ABD: Round, soft, non-tender, non-distended. EXT: No lower extremity edema appreciated. NEURO: Alert and oriented x 3. 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 Protein S deficiency, recently treated with ceftriaxone for S erratia and septic emboli, also history of Pseudomonas infection of central line was sent from Dr. Orozco office when she noted some pus coming out of her right Hrofov-l-Rpue. Central line infection Blood culture positive for gram-negative rods. Patient MRSA positive Dr. Trevizo will remove infected port, the new port will be reinserted on the left side Midline inserted today Continue antibiotic treatment Follow-up with ID Dr. Orozco Pain management VS,Joel, I+O VS, Denysbone, I+O Laboratory Tests 07/14/19 17:47 Red Blood Count 3.71 L, Mean Corpuscular Volume 86.3, Mean Corpuscular Hemoglobin 27.0, Mean Corpuscular Hemoglobin Concent 31.3 L, Red Cell Distribution Width 15.9 H, Calcium Level 8.3 L, Aspartate Amino Transf (AST/SGOT) 57 H, Alanine Aminotransferase (ALT/SGPT) 76, Alkaline Phosphatase 200 H, Total Bilirubin 0.7 #, Total Protein 6.2 L, Albumin 3.3 Vital Signs Date Time Temp Pulse Resp B/P (MAP) Pulse Ox O2 Delivery O2 Flow Rate FiO2 07/14/19 20:09 18 07/14/19 17:40 98.2 89 122/76 (91) 100 I&O- Last 24 Hours up to 6 AM 07/14/19 05:59 Intake Total 250 ml Balance 250 ml DROZHZHIN,TANNER DO Jul 14, 2019 20:34
[2019-07-14 20:52] VITALS: BP 123/76
[2019-07-14] MEDS: ACETAMINOPHEN TAB 650MG DOSE (2X325MG) PO PRN (21:20)
[2019-07-14] MEDS: zolPIDEM CR 6.25MG TABLET (AMBIEN CR) PO PRN (21:24)
[2019-07-15] MEDS: CEFEPIME HCL 1 GM in D5W MINI-BAG PLUS 50 ML IV SCH ×2 (00:52→12:59)
[2019-07-15] MEDS ORDERED: CEFEPIME HCL IM SCH (01:00)
--- NOTE | 2019-07-15 01:49 | REPVR ---
PROCEDURE INFORMATION: Exam: US Duplex Right Upper Extremity Veins, Limited Exam date and time: 07/14/2019 11:14 PM Clinical history: 39 years old, female; Pain; Arn, upper and arm; Right; Prior surgery; Surgery date: Post-operative (0-2 days); Surgery type: Had port removed today due to an infection in it; Additional info: Right upper arm pain TECHNIQUE: Imaging protocol: Real-time Duplex ultrasound of the Right Upper Extremity with 2-D [place] scale, color Doppler flow and spectral waveform analysis with image documentation. Limited exam focused on the right upper extremity veins. COMPARISON: US DUPLEX EXT UPPER VEINS UNILATE 03/31/2019 8:08 PM FINDINGS: Right deep veins: Unremarkable. Axillary and brachial veins are patent throughout without thrombus. Normal Doppler waveforms. Normal compressibility and/or augmentation response. Visualized internal jugular and subclavian veins are patent. Right superficial veins: Unremarkable. Visualized cephalic and basilic veins are patent without thrombus. Soft tissues: Unremarkable. IMPRESSION: No acute findings. No evidence of deep vein thrombosis. Electronically signed by: Martine Felix On 07/15/2019 01:00:26 AM
[2019-07-15 05:26] VITALS: BP 121/76
[2019-07-15] MEDS: SODIUM CHLORIDE 0.9% INJ 10 ML SYR IV SCH ×2 (06:07→18:13)
[2019-07-15 06:58] LABS: HEMATOCRIT 31.4 % (36.0-47.0); HEMOGLOBIN 9.7 g/dl (12.0-15.5); MEAN CORPUSCULAR HEMOGLOBIN 26.1 pg (27.0-33.0); MEAN CORPUSCULAR HGB CONC 30.9 g/dl (32.0-36.5); MEAN CORPUSCULAR VOLUME 84.4 fl (80.0-96.0); PLATELET COUNT, AUTOMATED 190 10^3/uL (150-450); RED BLOOD COUNT 3.72 10^6/uL (4.00-5.40); WHITE BLOOD COUNT 3.5 10^3/uL (4.0-10.0)
[2019-07-15 07:17] LABS: BLOOD UREA NITROGEN 4 MG/DL (7-18); CALCIUM LEVEL 8.6 MG/DL (8.5-10.1); CARBON DIOXIDE LEVEL 24 MEQ/L (21-32); CHLORIDE LEVEL 109 MEQ/L (98-107); CREATININE FOR GFR 0.67 MG/DL (0.55-1.30); GLOMERULAR FILTRATION RATE > 60.0 (>58); GLUCOSE, FASTING 134 MG/DL (70-100); MAGNESIUM LEVEL 2.2 MG/DL (1.8-2.4); POTASSIUM SERUM 3.4 MEQ/L (3.5-5.1); SODIUM LEVEL 142 MEQ/L (136-145)
[2019-07-15] MEDS: KETOROLAC 0.5% OPHTH SOLN OD SCH ×4 (09:00→20:08)
[2019-07-15 09:16] LABS: PHOSPHORUS LEVEL 3.5 MG/DL (2.5-4.9)
--- NOTE | 2019-07-15 09:58 | CR ---
DATE OF CONSULTATION: I was consulted by hospitalist for followup on Cikdwm-B-Zurb infection. HISTORY OF PRESENT ILLNESS: Claude is a 39-year-old female who was seen in the office by myself on 07/13/2019 when she called to be seen because of purulent drainage from her right sided Frwsfg-C-Uqfy. The patient refused to go to the emergency room as advised by the nurse and came to the office. When I saw her, she was stable complaining of pain in her right upper chest with purulent drainage but she had no fever, chills, nausea, vomiting or diarrhea or abdominal pain. The patient has chronic diarrhea with bloody bowel movements intermittently. This is chronic for her. She is not sure how she got the line infected. The day before she was doing very well. The Hyvvzl-X-Ztem was removed by Dr. Trevizo as soon as she came to the hospital last night. A wound culture was obtained from the site along with blood cultures. The patient was started on IV cefepime and vancomycin but they could not find an IV site and therefore cefepime was given IM and vancomycin and was on hold until she could get of med line. PAST MEDICAL HISTORY: Her past medical history significant for gastric bypass with short gut syndrome, malabsorption syndrome, inflammatory bowel disease. There is a question of Crohn disease that needs further workup. History of recurrent line infection with Serratia and Pseudomonas was septic emboli to the lungs. This is her third line infection. History of cavitary pulmonary nodule felt to be septic emboli followed up by Dr. Chakraborty. Hematuria, chronic gastrointestinal (GI) bleeding, history of depression, anxiety, Staphylococcus aureus (MRSA) colonized, chronic back pain with degenerative disease. Serratia marcescens and line infection in December that persisted into February 2019. History of Pseudomonas aeruginosa line infection in March 2018. PAST SURGICAL HISTORY: Decompression back surgery by Dr. Rueda in August 2013. Bariatric surgery September 2009. Tonsillectomy. Endometrial ablation and hysterectomy. [place] catheter 2013. Right leg wound abscess drained by Dr. Marte 2016. Left subclavian port infection in 2018. G-tube placement and removal in 2018. Subclavian port removal in 2018. Peripherally inserted central catheter (PICC) line insertion 2018. SOCIAL HISTORY: She lives with her . She has three kids. She denies any tobacco or alcohol use. REVIEW OF SYSTEMS: She had no fever or chills. No nausea, vomiting or diarrhea. She does complain of right upper quadrant pain, itching and pain at the Nmzoof-M-Isyf site with purulent drainage. No upper or lower extremity weakness. On physical exam she is a healthy looking female in no acute distress. Temperature is 98.2, pulse 89, respirations 16, blood pressure 122/76, O2 sat 100% on room air. Heart: Normal S1, S2. No murmurs, rubs or gallops. Lungs are clear. No wheezes or rhonchi. Abdomen: Right upper quadrant tenderness with no guarding. Back: No costovertebral angle (CVA) or lumbosacral tenderness. Oropharynx is clear with no thrush. Neck, [place] catheter was removed from the right side there is some erythema at the site of the Tegaderm. No purulence could be expressed today. Extremities: No clubbing, cyanosis or edema on her calf tenderness. Skin: With no rashes in spite of chronic itching. LABORATORY DATA: White count of 4.5, hemoglobin 10, hematocrit 32, platelets 180. Yesterday her white count was 10.1. Sodium 140, potassium 3.6, chloride 107, bicarb 22, BUN 8, creatinine 0.6, glucose 106, calcium 8.3, bilirubin 0.7 down from 2.2. GGT 104, AST 57 down from 166, ALT 76 down from 133 and alk phos 200, total protein 6.2, albumin 3.3. Blood cultures are positive for gram-negative rods catheter site culture also has a moderate white cells, no organisms seen. Cultures pending. IMPRESSION: Exit site infection with gram-negative bacteremia of infection of [place] catheter. The patient is on IV cefepime and vancomycin, which will be de-escalated to just IV cefepime. [place] catheter was removed as this is an active port and infection and could not be saved. A midline catheter was placed for IV antibiotics and total parental nutrition (TPN). It is quite concerning that the patient keeps having line infections whether her technique is sterile enough, she does not have a home infusion nurse and I am concerned about her having a central line at all times. She also has right upper quadrant pain. She had mild elevated liver function tests (LFTs) on admission but these have improved since on IV antibiotic and catheter was removed. She complains of pruritus. She has mild elevated bilirubin, alkaline phosphatase and GGTP, which could be obstructive component from TPN cholestasis. Abdominal ultrasound showed no evidence of infection. PLAN: Discontinue IV vancomycin. She has gram-negative bacteremia. Will continue with IV cefepime pending results of culture. The patient will need 14 days of antibiotics. Chest x-ray was ordered and was clear. There is no evidence of septic emboli. There was discussion of reversal of her gastric bypass to be done in [place] but this is being considered and may need to be discussed sooner than later as she has had multiple infections in the past couple years.
[2019-07-15] MEDS: ENOXAPARIN 60 MG/0.6 ML SYR (J1650) SC SCH ×2 (10:34→20:08)
[2019-07-15] MEDS: FLUoxetine 20 MG CAP PO SCH (10:34)
[2019-07-15] MEDS: KCL 40MEQ IN D5/NS 1000ML 1,000 ML IV SCH ×2 (10:34→22:30)
[2019-07-15] MEDS: DOCUSATE SODIUM 100 MG CAP PO SCH ×2 (10:34→20:07)
[2019-07-15] MEDS: ONDANSETRON 4MG/2ML VIAL (J2405) IV PRN ×2 (10:35→20:07)
[2019-07-15] MEDS: diphenhydrAMINE INJ 50MG/ML VIAL (J1200) IV PRN ×3 (10:35→20:07)
[2019-07-15] MEDS: MORPHINE 4 MG/ML 1ML VIAL/SYRINGE (J2270) IV PRN ×3 (10:36→21:25)
--- NOTE | 2019-07-15 11:22 | REP ---
MIDLINE INSERTION WITH ULTRASOUND GUIDANCE: REASON FOR EXAM: Focal IV access PROCEDURE: Midline catheter insertion under ultrasound guidance. This procedure was performed by BERE Young, under the direct supervision of Dr. Hinton. The risks and benefits of the procedure were explained to the patient and informed consent was obtained prior to the procedure both verbally and written. Directly prior to the start of the procedure, a formal timeout was completed in the procedure room. The left basilic vein was localized using ultrasound guidance. The skin was prepped and draped in a sterile fashion. 1% lidocaine was used as a local anesthetic. Using ultrasound guidance the left basilic vein was cannulated and a 0.018 guidewire was inserted. The needle was removed and a 5.5 Slovenian dilator and a Peel-Away sheath was inserted over the guidewire. A 5.5 [place]ian dual lumen catheter was cut to the length of 11 cm. The dilator was removed and the catheter was inserted over the guidewire. The Peel-Away sheath was removed and the catheter was flushed with heparinized saline as per hospital protocol. The catheter was affixed to the skin and a sterile dressing was applied. The patient tolerated the procedure well and there were no immediate complications. Reviewed by BREE Hamilton 07/14/2019 05:26 P Electronically Signed by Fredrick Hinton MD 07/15/2019 11:13 A
[2019-07-15] MEDS: oxyCODONE 5MG TAB PO PRN ×2 (12:59→20:09)
--- NOTE | 2019-07-15 14:55 | IPNPDOC ---
Text Note Date of Service The patient was seen on 07/15/19. NOTE Subjective: Patient was calm in the morning, complains of the right forearm pain with twisting sensation. She explained that pain started yesterday in the with paresthesias. Patient denies fever, chills, nausea, vomiting, shortness of breath. Objective: GEN: In severe distress HEENT: Normocephalic, atraumatic. Moist mucous membranes. CHEST: S1-S2, no inflammation on the side of right port removal LUNGS: Clear to auscultation bilaterally. No wheezes, rales, or rhonchi. Breathing appears symmetric and easy. ABD: Round, soft, non-tender, non-distended. EXT: No lower extremity edema appreciated. NEURO: Alert and oriented x 3. 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 Protein S deficiency, recently treated with ceftriaxone for Serratia and septic emboli, also history of Pseudomonas infection of central line was sent from Dr. Orozco office when she noted some pus coming out of her right Szhsor-x-Lvvg. Serratia marcescens and line infection in December that persisted into February 2019. History of Pseudomonas aeruginosa line infection in March 2018. Central line infection Blood culture positive for gram-negative rods. Await sensitivity Patient MRSA positive Dr. Trevizo removed infected port, the midline was placed Continue antibiotic treatment Follow-up with ID Dr. Orozco, vancomycin was discontinued Pain management Dr. Trevizo will place new port today, after port placement I will start TPN. Patient has multiple issue with port, she will benefit from surgical consult about gastric bypass reversal VS,Fishbone, I+O VS, Fishbone, I+O Laboratory Tests 07/14/19 17:47 Red Blood Count 3.71 L, Mean Corpuscular Volume 86.3, Mean Corpuscular Hemoglobin 27.0, Mean Corpuscular Hemoglobin Concent 31.3 L, Red Cell Distribution Width 15.9 H, Calcium Level 8.3 L, Aspartate Amino Transf (AST/SGOT) 57 H, Alanine Aminotransferase (ALT/SGPT) 76, Alkaline Phosphatase 200 H, Total Bilirubin 0.7 #, Total Protein 6.2 L, Albumin 3.3 07/15/19 06:29 Red Blood Count 3.72 L, Mean Corpuscular Volume 84.4, Mean Corpuscular Hemoglobin 26.1 L, Mean Corpuscular Hemoglobin Concent 30.9 L, Red Cell Distribution Width 15.9 H, Calcium Level 8.6 Vital Signs Date Time Temp Pulse Resp B/P (MAP) Pulse Ox O2 Delivery O2 Flow Rate FiO2 07/15/19 13:55 16 07/15/19 05:26 98.4 89 121/76 (91) 98 I&O- Last 24 Hours up to 6 AM 07/15/19 05:59 Intake Total 1260 ml Output Total 0 ml Balance 1260 ml TANNER YANCEY DO Jul 15, 2019 14:55
[2019-07-15 15:29] VITALS: BP 148/80
[2019-07-15] MEDS: zolPIDEM CR 6.25MG TABLET (AMBIEN CR) PO PRN (20:07)
[2019-07-15] MEDS: SODIUM CHLORIDE 0.9% INJ 10 ML SYR IV PRN (20:09)
[2019-07-15 22:00] VITALS: BP 115/74
[2019-07-16] MEDS: CEFEPIME HCL 1 GM in D5W MINI-BAG PLUS 50 ML IV SCH ×2 (01:30→13:14)
[2019-07-16] MEDS: diphenhydrAMINE INJ 50MG/ML VIAL (J1200) IV PRN ×4 (01:30→20:47)
[2019-07-16] MEDS: MORPHINE 4 MG/ML 1ML VIAL/SYRINGE (J2270) IV PRN ×6 (01:31→22:54)
[2019-07-16] MEDS: ONDANSETRON 4MG/2ML VIAL (J2405) IV PRN ×2 (05:42→17:01)
[2019-07-16 05:45] VITALS: BP 135/83
[2019-07-16] MEDS: SODIUM CHLORIDE 0.9% INJ 10 ML SYR IV SCH ×2 (06:00→17:02)
[2019-07-16 07:28] LABS: HEMATOCRIT 29.2 % (36.0-47.0); MEAN CORPUSCULAR HEMOGLOBIN 26.2 pg (27.0-33.0); MEAN CORPUSCULAR HGB CONC 30.8 g/dl (32.0-36.5); MEAN CORPUSCULAR VOLUME 84.9 fl (80.0-96.0); PLATELET COUNT, AUTOMATED 214 10^3/uL (150-450); RED BLOOD COUNT 3.44 10^6/uL (4.00-5.40); WHITE BLOOD COUNT 4.1 10^3/uL (4.0-10.0)
[2019-07-16 07:55] LABS: BLOOD UREA NITROGEN 3 MG/DL (7-18); CALCIUM LEVEL 8.6 MG/DL (8.5-10.1); CARBON DIOXIDE LEVEL 26 MEQ/L (21-32); CHLORIDE LEVEL 109 MEQ/L (98-107); CREATININE FOR GFR 0.59 MG/DL (0.55-1.30); GLOMERULAR FILTRATION RATE > 60.0 (>58); GLUCOSE, FASTING 100 MG/DL (70-100); POTASSIUM SERUM 4.1 MEQ/L (3.5-5.1); SODIUM LEVEL 142 MEQ/L (136-145)
[2019-07-16] MEDS: FLUoxetine 20 MG CAP PO SCH (08:39)
[2019-07-16] MEDS: DOCUSATE SODIUM 100 MG CAP PO SCH ×2 (08:39→20:47)
[2019-07-16] MEDS: oxyCODONE 5MG TAB PO PRN ×2 (08:41→20:49)
[2019-07-16] MEDS: KETOROLAC 0.5% OPHTH SOLN OD SCH ×4 (08:42→20:49)
[2019-07-16] MEDS: KCL 40MEQ IN D5/NS 1000ML 1,000 ML IV SCH ×2 (08:42→17:02)
[2019-07-16] MEDS: ENOXAPARIN 60 MG/0.6 ML SYR (J1650) SC SCH ×2 (08:42→20:48)
--- NOTE | 2019-07-16 11:02 | IPNPDOC ---
Text Note Date of Service The patient was seen on 07/16/19. NOTE Subjective: Complains of right forearm swelling, pain over right hand with pa resthesias. Patient stated the pain started after infected port was removed. She also complained of inflammation inside her nostrils. Patient denies fever, chills, vomiting, shortness of breath. Objective: GEN: NAD HEENT: Normocephalic, atraumatic. Moist mucous membranes. CHEST: S1-S2, no inflammation on the side of right port removal LUNGS: Clear to auscultation bilaterally. No wheezes, rales, or rhonchi. Breathing appears symmetric and easy. ABD: Round, soft, non-tender, non-distended. EXT: No lower extremity edema appreciated. There is moderate swelling of right forearm, distal part of forearm more swollen and tender on palpation. Right forearm is not cold, pulses present NEURO: Alert and oriented x 3. 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 Protein S deficiency, recently treated with ceftriaxone for Serratia and septic emboli, also history of Pseudomonas infection of central line was sent from Dr. Orozco office when she noted some pus coming out of her right Afaeaf-e-Syxk. Serratia marcescens and line infection in December that persisted into February 2019. History of Pseudomonas aeruginosa line infection in March 2018. Central line infection Blood culture positive for gram-negative rods, ENTEROBACTER CLOACAE COMPLEX. Sen sitive to cefepime Blood culture will be repeated Patient MRSA positive Dr. Trevizo removed infected port, the midline was placed Continue antibiotic treatment Follow-up with ID Dr. Orozco, vancomycin was discontinued Pain management Dr. Trevizo will place a port when blood culture negative, after port placement I will start TPN. Patient has multiple issue with port, she will benefit from surgical consult about gastric bypass reversal Right forearm pain I will repeat Doppler ultrasound to rule out blood clot Yesterday Doppler ultrasound was done and it was negative however swelling increased today. Patient developed r. forearm swelling and pain after port was removed I will discuss with Dr. Trevizo forearm swelling Nostril inflammation Patient was tested positive for MRSA She has skin inflammation around nostrils Mupirocin cream ordered VS,Fishbone, I+O VS, Fishbone, I+O Laboratory Tests 07/16/19 06:38 Red Blood Count 3.44 L, Mean Corpuscular Volume 84.9, Mean Corpuscular Hemoglobin 26.2 L, Mean Corpuscular Hemoglobin Concent 30.8 L, Red Cell Distribution Width 15.9 H, Calcium Level 8.6 Vital Signs Date Time Temp Pulse Resp B/P (MAP) Pulse Ox O2 Delivery O2 Flow Rate FiO2 07/16/19 10:37 18 07/16/19 05:45 97.6 86 135/83 (100) 99 I&O- Last 24 Hours up to 6 AM 07/16/19 06:00 Intake Total 1430 ml Output Total 0 ml Balance 1430 ml TANNER YANCEY DO Jul 16, 2019 11:02
--- NOTE | 2019-07-16 12:38 | REP ---
Right upper extremity duplex Doppler venous ultrasound. Real time compression and duplex Doppler evaluation of the right upper extremity deep venous system is performed. The right subclavian, jugular, axillary, brachial, basilic and cephalic veins are fully compressible where accessible with transducer pressure, and demonstrate no intraluminal thrombus and normal venous waveforms. There is no evidence of deep venous thrombosis. Impression: No evidence of deep venous thrombosis of the right upper extremity deep vein system. Electronically Signed by Fredrick Hinton MD 07/16/2019 12:31 P
[2019-07-16 14:56] VITALS: BP 135/85
[2019-07-16] MEDS: zolPIDEM CR 6.25MG TABLET (AMBIEN CR) PO PRN (20:47)
[2019-07-16] MEDS: SODIUM CHLORIDE 0.9% INJ 10 ML SYR IV PRN (20:48)
--- NOTE | 2019-07-16 21:00 | ROOPDOC ---
[facility] Report Of Operation Report of Operation DATE OF PROCEDURE: PREPROCEDURE DIAGNOSES: End-stage renal disease,. POSTPROCEDURE DIAGNOSES: End-stage renal disease, . PROCEDURE: internal jugular vein tunneled central venous catheter removal. SURGEON: Dr. Jennifer Trevizo M.D. STORE KEEPER: None INDICATION: Patient is Patient will undergo removal of the internal jugular vein tunneled central venous catheter. The procedure was explained and described to the patient in detail including drawing of pictures describing the procedure and pertinent anatomy associated with the procedure. Risks, benefits and alternative treatment options were discussed with the patient. Benefits included but were not limited to removal of the catheter with reduction in complications from central venous catheters. Alternative treatment options included but were not limited to no intervention. Risks included but were not limited to infection, bleeding, pneumothorax, hemothorax, possible need for open surgical intervention, adverse or allergic reaction to the local anesthetic, adverse or allergic reaction to the material used for surgical prepping and draping, nerve injury, cerebrovascular accident, myocardial infarction, pulmonary embolus, deep venous thrombosis, poor satisfaction, poor outcome, poor results, loss of limb and loss of life. Risks of not performing the procedure included but were not limited to infection, bleeding, central venous stenosis and/or thrombosis, loss of life and poor outcome. Patient's questions were answered. Patient voices understanding of these risks, benefits and alternative treatment options. Patient voices acceptance of these risks, benefits and alternative treatment options and consents to proceed with internal jugular vein tunneled central venous catheter removal. There were no promises or guarantees made to the patient regarding the procedure or outcome. ANESTHESIA: ESTIMATED BLOOD LOSS: mL IV FLUIDS: DRAINS: None CONTRAST: None COMPLICATIONS: None IMPLANTS: None SPECIMENS: None PROCEDURE: Patient was prepped and draped in a standard surgical fashion. A time out was completed by myself and all the team members in the room involved at the initiation of the procedure, confirming the correct patient , procedure and laterality. Manual traction was applied to the catheter which release the subcutaneous cuff spontaneously. [The skin and subcutaneous tissue overlying the catheter and tunnelled subcutaneous cuff were then anesthetized with 2% lid ocaine. The cuff was then sharply dissected free via the entry site in the chest.] The catheter was then removed and manual compression applied at the exit site in the chest and at the internal jugular vein entry site for hemostasis. Once hemostasis was achieved, dressings were then applied. Patient tolerated the procedure well and was in stable condition at the end of the re moval of the tunneled central venous catheter. All instrument, sponge and needle counts were correct at the end of the case. There were no complications. Dr. Trevizo was present for and directed the entire case. Patient was [discharged] in stable condition. The procedure and results were discussed with the patient at the end of the case with all of their questions being answered. The procedure and the results were discussed with the patient's at the end of the case with all of their questions being answered. Mehdi Trevizo MD Jul 16, 2019 21:00
--- NOTE | 2019-07-16 21:02 | IPNPDOC ---
Subjective General Date/Time Seen The patient was seen on 07/16/19 at 21:02. Subject Chief Complaint/History The patient is a 39-year-old female admitted with a reason for visit of Infusaport Line Infection. Current Medications Current Medications Current Medications Medications (Trade) Dose Ordered Sig/Isidro Route PRN Reason Start Time Stop Time Status Last Admin Dose Admin Acetaminophen (Tylenol Tab) 650 mg Q4H PRN PO PAIN OR FEVER 07/13/19 14:30 07/14/19 21:20 Al Hydrox/Mg Hydrox/Simethicone (Mylanta) 30 ml DAILY PRN PO DYSPEPSIA 07/13/19 14:30 Cefepime HCl (Maxipime) 1 gm Q12H IM 07/15/19 01:00 07/15/19 01:00 DC Cefepime HCl 1 gm/ Dextrose 50 ml @ 100 mls/hr Q12H IM 07/14/19 12:12 Cancel Cefepime HCl 1 gm/ Dextrose 50 ml @ 100 mls/hr Q12H IM 07/14/19 12:15 Cancel Cefepime HCl 1 gm/ Dextrose 50 ml @ 100 mls/hr Q12H IM 07/14/19 13:00 07/14/19 15:08 DC 07/14/19 12:55 Cefepime HCl 1 gm/ Dextrose 50 ml @ 100 mls/hr Q12H IV 07/13/19 20:00 07/14/19 18:57 DC Cefepime HCl 1 gm/ Dextrose 50 ml @ 100 mls/hr Q12H IV 07/14/19 12:00 Cancel Cefepime HCl 1 gm/ Dextrose 50 ml @ 100 mls/hr Q12H IV 07/15/19 01:00 07/16/19 14:52 DC 07/16/19 13:14 Ceftriaxone Sodium 2 gm/ Dextrose 50 ml @ 100 mls/hr Q24H IV 07/17/19 09:00 Diphenhydramine HCl (Benadryl) 25 mg Q4HP PRN IV ITCHING 07/14/19 19:00 07/16/19 20:47 Diphenhydramine HCl (Benadryl) 50 mg Q6HP PRN PO ITCHING 07/14/19 10:45 07/14/19 10:54 Docusate Sodium (Colace) 100 mg BID PO 07/13/19 21:00 07/16/19 20:47 Enoxaparin Sodium (Lovenox) 60 mg Q12H SC 07/13/19 21:00 07/16/19 20:48 Fluoxetine HCl (PROzac) 20 mg DAILY PO 07/14/19 09:00 07/16/19 08:39 Heparin Sodium (Heparin (Flush)) 100 units ASDIRECTED PRN IV SEE LABEL COMMENTS 07/14/19 17:30 07/16/19 20:48 Heparin Sodium (Heparin (Flush)) 100 units BID@0600,1800 IV 07/14/19 18:00 07/16/19 17:02 Home Med (Med Rec Complete!) ASDIRECTED XX 07/13/19 17:15 07/13/19 17:35 DC Hydroxyzine HCl (Atarax) 50 mg Q6HP PRN PO ITCHING 07/13/19 17:00 07/14/19 08:49 Ketorolac Tromethamine (Acular 0.5%) 1 drop QID OD 07/13/19 21:00 07/16/19 08:42 Magnesium Hydroxide (Milk Of Magnesia) 30 ml DAILY PRN PO CONSTIPATION 07/13/19 14:30 Morphine Sulfate (Morphine Sulfate Inj) 1 mg Q3HP PRN IV PAIN 07/14/19 19:00 07/16/19 17:01 Mupirocin (Bactroban 2% Ointment) around nose and in nostrils DAILY TOP 07/17/19 13:00 Ondansetron HCl (ZOFRAN INJection) 8 mg Q8HP PRN IV NAUSEA OR VOMITING 07/13/19 16:00 07/16/19 17:01 Oxycodone HCl (Roxicodone, Oxyir) 5 mg Q6HP PRN PO PAIN 07/13/19 16:00 07/14/19 10:22 DC 07/13/19 18:17 Oxycodone HCl (Roxicodone, Oxyir) 10 mg Q6HP PRN PO PAIN 07/14/19 10:30 07/16/19 20:49 Potassium Chloride 1,000 ml @ 100 mls/hr Q10H IV 07/15/19 09:00 07/16/19 17:02 Promethazine HCl (Phenergan Suppository) 25 mg Q8HP PRN IN NAUSEA OR VOMITING 07/13/19 16:00 Sodium Chloride (Saline Lock Flush) 10 ml ASDIRECTED PRN IV SEE LABEL COMMENTS 07/14/19 17:30 07/16/19 20:48 Sodium Chloride (Saline Lock Flush) 10 ml BID@0600,1800 IV 07/14/19 18:00 07/16/19 17:02 Vancomycin HCl 1000 mg/IV Miscellaneous Supplies 1 each/ Dextrose 270 ml @ 270 mls/hr Q12H IV 07/13/19 17:00 07/14/19 17:19 DC Zolpidem Tartrate (Ambien Cr) 6.25 mg QHSP PRN PO INSOMNIA 07/13/19 16:00 07/16/19 20:47 Allergies Coded Allergies: Sulfa (Sulfonamide Antibiotics) (Verified Allergy, Severe, RESP. PROBLEMS, SWELLING, HIVES, 01/14/19) butorphanol (Verified Allergy, Severe, HIVES/RESP. PROBLEMS (PERCOCET AND TYL#3 OK), 01/14/19) HAS HAD MORPHINE AND DILAUDID IN THE PAST levofloxacin (Verified Allergy, Severe, THROAT SWELLING/HIVES, 01/14/19) tomato (Verified Allergy, Severe, RESP. PROBLEMS, HIVES, 01/14/19) tramadol (Verified Allergy, Severe, SOB - HAS HAD MORPHINE AND DILAUDID IN THE PAST, 01/14/19) scopolamine (Verified Adverse Reaction, Intermediate, VISION LOSS, 01/14/19) NSAIDS (Non-Steroidal Anti-Inflamma (Verified Adverse Reaction, Mild, GASTRIC BYPASS, 01/14/19) VS, I&O, 24H, [facility] Vital Signs/I&O Vital Signs Date Time Temp Pulse Resp B/P (MAP) Pulse Ox O2 Delivery O2 Flow Rate FiO2 07/16/19 20:49 14 07/16/19 14:56 98.3 101 135/85 (102) 100 I&O- Last 24 Hours up to 6 AM 07/16/19 06:00 Intake Total 1430 ml Output Total 0 ml Balance 1430 ml Laboratory Data 24H LABS Laboratory Tests 2 07/16/19 06:38: Nucleated Red Blood Cells % (auto) 0.0, Anion Gap 7L, Glomerular Filtration Rate > 60.0, Blood Urea Nitrogen 3L, Creatinine 0.59, Sodium Level 142, Potassium Level 4.1#, Chloride Level 109H, Carbon Dioxide Level 26, Calcium Level 8.6, Magnesium Level 2.0 CBC/BMP Laboratory Tests 07/16/19 06:38 Red Blood Count 3.44 L, Mean Corpuscular Volume 84.9, Mean Corpuscular Hemoglobin 26.2 L, Mean Corpuscular Hemoglobin Concent 30.8 L, Red Cell Distribution Width 15.9 H, Calcium Level 8.6 Microbiology Microbiology 07/16/19 Blood Culture, Received Pending 07/15/19 Blood Culture - Preliminary, Resulted No growth after 24 hours . All specim... 07/13/19 Blood Culture - Preliminary, Resulted Enterobacter Cloacae Complex 07/13/19 Blood Culture - Final, Complete Enterobacter Cloacae Complex Objective Physical Examination General Exam: Positive: Alert, Cooperative Eye Exam: Positive: PERRLA, Conjunctiva & lids normal ENT Exam: Positive: Atraumatic, Mucous membr. moist/pink Neck Exam: Positive: Supple Chest Exam: Positive: Clear to auscultation, Normal air movement Heart Exam: Positive: Rate Normal, Normal S1, Normal S2 Abdomen Exam: Positive: Normal bowel sounds, Soft Extremity Exam: Positive: Normal pulses Skin Exam: Positive: Nl turgor and temperature Neuro Exam: Positive: Strength at 5/5 X4 ext, Sensation Intact Psych Exam: Positive: Mental status NL, Mood NL, Oriented x 3 Mehdi Trevizo MD Jul 16, 2019 21:02
[2019-07-16 22:24] VITALS: BP 106/63
[2019-07-16] MEDS: MUPIROCIN 2% OINT 22 GM TUBE TOP SCH (22:53)
--- NOTE | 2019-07-16 22:54 | IPN ---
DATE: 07/13/2019 Claude is complaining of right arm pain. She has to purplish discolored lesions on her right forearm. She denied any trauma. She had an ultrasound of her arm which was negative for deep venous thrombosis (DVT). She also has a lesion on her nose for which she was prescribed Naprosyn. She states that anytime she had an infection she has lesions in her nose that are related to Methicillin-resistant Staphylococcus aureus (MRSA). PHYSICAL EXAMINATION: Temperature is 97.6, pulse 82, respirations 20, blood pressure 106/63, O2 sat 99% on room air. Heart: Normal S1, S2. No murmurs, rubs or gallops. Lungs are clear. No wheezes, rales or rhonchi. Abdomen: Soft, mildly tender in the right upper quadrant. Extremities: No edema. Previous [id number]-C-Hsnn site is healed with no purulent discharge. She has a midline in the left arm. Right arm has ecchymotic dark purple area on the forearm around the wrist measuring about 8 x 4 cm. Red erythematous lesion around her right nostril which look herpetic. LABORATORY DATA Blood cultures were positive for Enterobacter cloacae resistant to cefazolin. White count 4.1, hemoglobin 90, hematocrit 29.2, platelets 214. Sodium 142, potassium 4.1, chloride 109, bicarb 26, BUN 3, creatinine 0.59, glucose 100, calcium 8.9, magnesium 2. IMPRESSION: 1. Central line infection with Enterobacter cloacae. The patient on IV cefepime, will be switched to Rocephin 2 grams IV daily. The patient will be treated with 2 weeks of IV antibiotics or negative culture on 07/15. 2. Protein calorie malnutrition from gastric bypass. The patient is TPN dependent. Needs another central line. This could be done when repeat blood cultures are negative as her TPN cannot go through her midline. 3. Right arm ecchymosis. She had a vascular ultrasound done on 07/14 and 07/16 both without any of any evidence of DVT. 4. Nose lesions. 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 Will obtain HSV swab and start Valtrex. Naprosyn twice a day to nares and Hibiclens body wash could also be used before central line new line placement. Will also discuss the case with her mule developer Dr. Mateus Bergman at [facility].
[2019-07-17] MEDS: valACYclovir HCL 500 MG TAB PO SCH ×3 (01:22→20:56)
[2019-07-17] MEDS: ONDANSETRON 4MG/2ML VIAL (J2405) IV PRN ×2 (01:22→17:08)
[2019-07-17] MEDS: KCL 40MEQ IN D5/NS 1000ML 1,000 ML IV SCH ×3 (02:37→21:00)
[2019-07-17] MEDS: diphenhydrAMINE INJ 50MG/ML VIAL (J1200) IV PRN ×3 (02:51→20:56)
[2019-07-17] MEDS: MORPHINE 4 MG/ML 1ML VIAL/SYRINGE (J2270) IV PRN ×5 (02:52→22:27)
[2019-07-17] MEDS: SODIUM CHLORIDE 0.9% INJ 10 ML SYR IV PRN ×2 (02:52→20:57)
[2019-07-17] MEDS: SODIUM CHLORIDE 0.9% INJ 10 ML SYR IV SCH ×2 (06:42→17:09)
[2019-07-17] MEDS: oxyCODONE 5MG TAB PO PRN ×2 (06:43→20:55)
[2019-07-17 06:54] LABS: HEMATOCRIT 27.4 % (36.0-47.0); HEMOGLOBIN 8.6 g/dl (12.0-15.5); MEAN CORPUSCULAR HEMOGLOBIN 26.5 pg (27.0-33.0); MEAN CORPUSCULAR HGB CONC 31.4 g/dl (32.0-36.5); MEAN CORPUSCULAR VOLUME 84.6 fl (80.0-96.0); PLATELET COUNT, AUTOMATED 203 10^3/uL (150-450); RED BLOOD COUNT 3.24 10^6/uL (4.00-5.40); WHITE BLOOD COUNT 3.4 10^3/uL (4.0-10.0)
[2019-07-17 07:04] VITALS: BP 131/83
[2019-07-17 07:17] LABS: BLOOD UREA NITROGEN 2 MG/DL (7-18); CALCIUM LEVEL 8.8 MG/DL (8.5-10.1); CARBON DIOXIDE LEVEL 27 MEQ/L (21-32); CHLORIDE LEVEL 110 MEQ/L (98-107); CREATININE FOR GFR 0.57 MG/DL (0.55-1.30); GLOMERULAR FILTRATION RATE > 60.0 (>58); GLUCOSE, FASTING 106 MG/DL (70-100); MAGNESIUM LEVEL 1.9 MG/DL (1.8-2.4); POTASSIUM SERUM 4.4 MEQ/L (3.5-5.1); SODIUM LEVEL 141 MEQ/L (136-145)
[2019-07-17] MEDS: diphenhydrAMINE 50 MG CAP PO PRN (08:10)
[2019-07-17] MEDS: ENOXAPARIN 60 MG/0.6 ML SYR (J1650) SC SCH ×2 (08:10→20:55)
[2019-07-17] MEDS: FLUoxetine 20 MG CAP PO SCH (08:10)
[2019-07-17] MEDS: DOCUSATE SODIUM 100 MG CAP PO SCH ×2 (08:10→20:56)
[2019-07-17] MEDS: MUPIROCIN 2% OINT 22 GM TUBE TOP SCH ×2 (08:11→20:56)
[2019-07-17] MEDS: KETOROLAC 0.5% OPHTH SOLN OD SCH ×4 (08:11→20:56)
[2019-07-17] MEDS: cefTRIAXone SOD 2 GM in D5W MINI-BAG PLUS 50 ML IV SCH (08:11)
[2019-07-17] MEDS ORDERED: MUPIROCIN 2% OINT 22 GM TUBE TOP SCH (13:00)
[2019-07-17 15:32] VITALS: BP 121/77
--- NOTE | 2019-07-17 16:12 | IPNPDOC ---
Text Note Date of Service The patient was seen on 07/17/19. NOTE Subjective: Patient continues to complain of right forearm swelling, pain over right hand with paresthesias. But intensity of the pain less than yesterday She also complained of inflammation inside her nostrils. Patient denies fever, chills, vomiting, shortness of breath. Objective: GEN: NAD HEENT: Normocephalic, atraumatic. Moist mucous membranes. CHEST: S1-S2, no inflammation on the side of right port removal LUNGS: Clear to auscultation bilaterally. No wheezes, rales, or rhonchi. Breathing appears symmetric and easy. ABD: Round, soft, non-tender, non-distended. EXT: No lower extremity edema appreciated. There is moderate swelling of right forearm, distal part of forearm more swollen and tender on palpation. Right forearm is not cold, pulses present NEURO: Alert and oriented x 3. 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 Protein S deficiency, recently treated with ceftriaxone for Serratia and septic emboli, also history of Pseudomonas infection of central line was sent from Dr. Orozco office when she noted some pus coming out of her right Cdvtsi-e-Beid. Serratia marcescens and line infection in December that persisted into February 2019. History of Pseudomonas aeruginosa line infection in March 2018. Central line infection Blood culture positive for gram-negative rods, ENTEROBACTER CLOACAE COMPLEX. Sensitive to cefepime. The repeated blood culture is negative for [address] MRSA [address] Trevizo removed infected port, the midline was placed Continue antibiotic treatment Follow-up with ID Dr. Orozco, vancomycin was discontinued Pain management Dr. Trveizo will place a port when blood culture negative, after port placement I will start TPN. Most likely the port will be placed on Saturday Patient has multiple issue with port, she will benefit from surgical consult about gastric bypass reversal Right forearm pain Repeated Doppler ultrasound negative Patient developed r. forearm swelling and pain after port was removed Nostril inflammation Patient was tested positive for MRSA She has skin inflammation around nostrils Mupirocin cream ordered with Valtrex Herpes Simplex virus infection Will obtain HSV swab and start Valtrex. Protein calorie malnutrition 2/2 gastric bypass. The patient is TPN dependent VS,Fishbone, I+O VS, Fishbone, I+O Laboratory Tests 07/17/19 05:54 Red Blood Count 3.24 L, Mean Corpuscular Volume 84.6, Mean Corpuscular Hemoglobin 26.5 L, Mean Corpuscular Hemoglobin Concent 31.4 L, Red Cell Distri bution Width 15.8 H, Calcium Level 8.8 Vital Signs Date Time Temp Pulse Resp B/P (MAP) Pulse Ox O2 Delivery O2 Flow Rate FiO2 07/17/19 13:02 18 07/17/19 07:04 98.0 78 131/83 (99) 98 I&O- Last 24 Hours up to 6 AM 07/17/19 06:00 Intake Total 1380 ml Output Total 0 ml Balance 1380 ml TANNER YANCEY DO Jul 17, 2019 16:12
--- NOTE | 2019-07-17 19:52 | IPN ---
DATE: 07/17/2019 Claude continues to complain of right arm pain, mostly at the forearm where she has bruises. She has had no fever or chills. No nausea, vomiting, or diarrhea. The patient is waiting for her Ixxnjt-A-Xuvf that is going to be placed on Saturday. She has not been on total parenteral nutrition (TPN) since Saturday. LABORATORY DATA: White count 3.4, hemoglobin 8.6, hematocrit 27.4, platelets 203. Sodium 141, potassium 4.4, chloride 110, bicarbonate 27, BUN 2, creatinine 0.57, glucose 106, calcium 8.8, magnesium 1.9. Blood cultures were positive for Enterobacter cloacae on July 13, two sets, and on July 15 and two sets are no growth. PHYSICAL EXAMINATION: Temperature is 98, pulse 78, respirations 20, blood pressure 131/83, oxygen saturation 98% on room air. HEART: Normal S1, S2, tachycardiac. LUNGS: Clear. No wheezes, rales, or rhonchi. ABDOMEN: Soft, nontender. No hepatosplenomegaly. EXTREMITIES: No edema. Right arm has ecchymosis along the forearm at two different sites. They do not look like septic emboli. They are purplish in color. Look like an old bruise. IMPRESSION: 1. Line infections with Enterobacter cloacae. The patient currently on intravenous (IV) Rocephin. Will need 2 weeks of antibiotics from negative cultures, which would be July 15. Continue antibiotic until May 29. I have discussed the case with patient and family services (PFS) and charge nurse regarding her dressing changes. She should have a nurse do her blood draw and dressing changes weekly to decrease risk of recurrent line infections. 2. History of gastroparesis and gastric bypass. I discussed the case with Dr. Mateus Bergman who stated that she will be having reversal of her gastric bypass sometime in July by Dr. Constantino. He stated that she does not have any obvious pathology. No enteritis/colitis on capsule endoscopy. PLAN: Replace [id number] on Saturday and hopefully discharge after that with a plan to finish IV Rocephin for a total of 2 weeks from negative cultures. End of therapy will be July 29.
[2019-07-17] MEDS: zolPIDEM CR 6.25MG TABLET (AMBIEN CR) PO PRN (20:55)
[2019-07-17 21:43] VITALS: BP 103/60
[2019-07-17] MEDS: ACETAMINOPHEN TAB 650MG DOSE (2X325MG) PO PRN (22:27)
[2019-07-18] MEDS: MORPHINE 4 MG/ML 1ML VIAL/SYRINGE (J2270) IV PRN ×5 (02:41→21:21)
[2019-07-18] MEDS: ONDANSETRON 4MG/2ML VIAL (J2405) IV PRN ×3 (02:41→21:20)
[2019-07-18] MEDS: diphenhydrAMINE INJ 50MG/ML VIAL (J1200) IV PRN ×4 (02:49→20:38)
[2019-07-18] MEDS: SODIUM CHLORIDE 0.9% INJ 10 ML SYR IV PRN ×4 (02:49→15:39)
[2019-07-18] MEDS: SODIUM CHLORIDE 0.9% INJ 10 ML SYR IV SCH ×2 (06:09→17:42)
[2019-07-18] MEDS: oxyCODONE 5MG TAB PO PRN ×2 (06:09→15:38)
[2019-07-18 06:48] LABS: HEMATOCRIT 30.4 % (36.0-47.0); MEAN CORPUSCULAR HGB CONC 29.6 g/dl (32.0-36.5); MEAN CORPUSCULAR VOLUME 87.9 fl (80.0-96.0); PLATELET COUNT, AUTOMATED 237 10^3/uL (150-450); RED BLOOD COUNT 3.46 10^6/uL (4.00-5.40); WHITE BLOOD COUNT 3.1 10^3/uL (4.0-10.0)
[2019-07-18 06:57] VITALS: BP 133/82
[2019-07-18 07:19] LABS: BLOOD UREA NITROGEN 4 MG/DL (7-18); CALCIUM LEVEL 8.5 MG/DL (8.5-10.1); CARBON DIOXIDE LEVEL 25 MEQ/L (21-32); CHLORIDE LEVEL 108 MEQ/L (98-107); GLOMERULAR FILTRATION RATE > 60.0 (>58); GLUCOSE, FASTING 115 MG/DL (70-100); MAGNESIUM LEVEL 1.9 MG/DL (1.8-2.4); POTASSIUM SERUM 4.3 MEQ/L (3.5-5.1); SODIUM LEVEL 141 MEQ/L (136-145)
[2019-07-18] MEDS ORDERED: FERROUS SULFATE 300MG/5ML UDC LIQUID PO SCH (09:00)
[2019-07-18] MEDS: KETOROLAC 0.5% OPHTH SOLN OD SCH ×4 (09:00→20:40)
[2019-07-18] MEDS: KCL 40MEQ IN D5/NS 1000ML 1,000 ML IV SCH ×2 (09:18→20:38)
[2019-07-18] MEDS: cefTRIAXone SOD 2 GM in D5W MINI-BAG PLUS 50 ML IV SCH (09:19)
[2019-07-18] MEDS: FLUoxetine 20 MG CAP PO SCH (09:19)
[2019-07-18] MEDS: valACYclovir HCL 500 MG TAB PO SCH ×2 (09:19→20:40)
[2019-07-18] MEDS: FERROUS GLUCONATE 324 MG TAB PO SCH (09:19)
[2019-07-18] MEDS: ACETAMINOPHEN TAB 650MG DOSE (2X325MG) PO PRN ×2 (09:20→20:38)
[2019-07-18] MEDS: ENOXAPARIN 60 MG/0.6 ML SYR (J1650) SC SCH ×2 (09:20→20:39)
[2019-07-18] MEDS: DOCUSATE SODIUM 100 MG CAP PO SCH ×2 (09:21→20:38)
[2019-07-18] MEDS: MUPIROCIN 2% OINT 22 GM TUBE TOP SCH ×2 (09:22→20:41)
--- NOTE | 2019-07-18 13:48 | IPNPDOC ---
Text Note Date of Service The patient was seen on 07/18/19. NOTE Subjective: Patient continues to complain of right forearm swelling, but she has less swelling. Patient denies fever, chills, vomiting, shortness of breath. Objective: GEN: NAD HEENT: Normocephalic, atraumatic. Moist mucous membranes. CHEST: S1-S2, no inflammation on the side of right port removal LUNGS: Clear to auscultation bilaterally. No wheezes, rales, or rhonchi. Breathing appears symmetric and easy. ABD: Round, soft, non-tender, non-distended. EXT: No lower extremity edema appreciated. There is moderate swelling of right forearm. Right forearm is not cold, pulses present NEURO: Alert and oriented x 3. 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 Protein S deficiency, recently treated with ceftriaxone for Serratia and septic emboli, also history of Pseudomonas infection of central line was sent from Dr. Orozco office when she noted some pus coming out of her right Sdhzlx-s-Xmam. Serratia marcescens and line infection in December that persisted into February 2019. History of Pseudomonas aeruginosa line infection in March 2018. Central line infection Blood culture positive for gram-negative rods, ENTEROBACTER CLOACAE COMPLEX. Sensitive to cefepime. The repeated blood culture is negative for [address] MRSA positive [address]. Trevizo removed infected port, the midline was placed Dr. Orozco recommended need 2 weeks of antibiotics from negative cultures, which would be July 15. Continue antibiotic until July [address] Trevizo will place a port when blood culture negative, after port placement I will start TPN. Most likely the port will be placed on Saturday Patient has multiple issue with port, she will benefit from surgical consult about gastric bypass reversal. She will be having reversal of her gastric bypass sometime in July by Dr. Constantino Right forearm pain Repeated Doppler ultrasound negative Patient developed r. forearm swelling and pain after port was removed Nostril inflammation Patient was tested positive for MRSA She has skin inflammation around nostrils Mupirocin cream ordered with Valtrex Herpes Simplex virus infection HSV swab, result pending Valtrex. Protein calorie malnutrition 2/2 gastric bypass. The patient is TPN dependent VS,Fishbone, I+O VS, Fishbone, I+O Laboratory Tests 07/18/19 06:30 Red Blood Count 3.46 L, Mean Corpuscular Volume 87.9, Mean Corpuscular Hemoglobin 26.0 L, Mean Corpuscular Hemoglobin Concent 29.6 L, Red Cell Distribution Width 15.6 H, Calcium Level 8.5 Vital Signs Date Time Temp Pulse Resp B/P (MAP) Pulse Ox O2 Delivery O2 Flow Rate FiO2 07/18/19 13:13 18 07/18/19 06:57 98.6 97 133/82 (99) 97 I&O- Last 24 Hours up to 6 AM 07/18/19 05:59 Intake Total 2580 ml Balance 2580 ml TANNER YANCEY DO Jul 18, 2019 13:48
[2019-07-18 14:00] VITALS: BP 135/80
[2019-07-18] MEDS: zolPIDEM CR 6.25MG TABLET (AMBIEN CR) PO PRN (20:44)
[2019-07-18 22:00] VITALS: BP 106/60
[2019-07-19] MEDS: diphenhydrAMINE INJ 50MG/ML VIAL (J1200) IV PRN ×4 (02:29→18:51)
[2019-07-19] MEDS: MORPHINE 4 MG/ML 1ML VIAL/SYRINGE (J2270) IV PRN ×4 (02:30→20:38)
[2019-07-19] MEDS: oxyCODONE 5MG TAB PO PRN ×3 (05:43→18:51)
[2019-07-19] MEDS: KCL 40MEQ IN D5/NS 1000ML 1,000 ML IV SCH ×2 (05:44→14:30)
[2019-07-19] MEDS: SODIUM CHLORIDE 0.9% INJ 10 ML SYR IV SCH ×2 (05:44→18:56)
[2019-07-19 06:00] VITALS: BP 101/61
[2019-07-19] MEDS: ONDANSETRON 4MG/2ML VIAL (J2405) IV PRN ×2 (08:18→18:49)
[2019-07-19] MEDS: valACYclovir HCL 500 MG TAB PO SCH ×2 (08:19→20:36)
[2019-07-19] MEDS: FERROUS GLUCONATE 324 MG TAB PO SCH (08:19)
[2019-07-19] MEDS: FLUoxetine 20 MG CAP PO SCH (08:19)
[2019-07-19] MEDS: DOCUSATE SODIUM 100 MG CAP PO SCH ×2 (08:19→20:36)
[2019-07-19] MEDS: cefTRIAXone SOD 2 GM in D5W MINI-BAG PLUS 50 ML IV SCH (08:19)
[2019-07-19] MEDS: ENOXAPARIN 60 MG/0.6 ML SYR (J1650) SC SCH ×2 (08:20→20:37)
[2019-07-19] MEDS: SODIUM CHLORIDE 0.9% INJ 10 ML SYR IV PRN ×3 (08:23→14:59)
[2019-07-19 08:37] LABS: HEMATOCRIT 30.3 % (36.0-47.0); HEMOGLOBIN 9.3 g/dl (12.0-15.5); MEAN CORPUSCULAR HEMOGLOBIN 26.3 pg (27.0-33.0); MEAN CORPUSCULAR HGB CONC 30.7 g/dl (32.0-36.5); MEAN CORPUSCULAR VOLUME 85.8 fl (80.0-96.0); PLATELET COUNT, AUTOMATED 271 10^3/uL (150-450); RED BLOOD COUNT 3.53 10^6/uL (4.00-5.40); WHITE BLOOD COUNT 3.6 10^3/uL (4.0-10.0)
[2019-07-19] MEDS: KETOROLAC 0.5% OPHTH SOLN OD SCH ×4 (09:00→20:37)
[2019-07-19 09:02] LABS: BLOOD UREA NITROGEN 3 MG/DL (7-18); CALCIUM LEVEL 8.4 MG/DL (8.5-10.1); CARBON DIOXIDE LEVEL 24 MEQ/L (21-32); CHLORIDE LEVEL 106 MEQ/L (98-107); CREATININE FOR GFR 0.74 MG/DL (0.55-1.30); GLOMERULAR FILTRATION RATE > 60.0 (>58); GLUCOSE, FASTING 130 MG/DL (70-100); MAGNESIUM LEVEL 1.9 MG/DL (1.8-2.4); POTASSIUM SERUM 4.4 MEQ/L (3.5-5.1); SODIUM LEVEL 141 MEQ/L (136-145)
[2019-07-19] MEDS: MUPIROCIN 2% OINT 22 GM TUBE TOP SCH ×2 (09:38→20:37)
[2019-07-19 12:59] LABS: INR 0.96; PROTHROMBIN TIME 12.4 SECONDS (11.8-14.0)
[2019-07-19 14:27] VITALS: BP 123/69
--- NOTE | 2019-07-19 14:29 | IPNPDOC ---
Text Note Date of Service The patient was seen on 07/19/19. NOTE Subjective: Patient continues to complain of right forearm swelling, today p atient developed brownish discoloration of distal part of the forearm Patient denies fever, chills, vomiting, shortness of breath. Objective: GEN: NAD HEENT: Normocephalic, atraumatic. Moist mucous membranes. CHEST: S1-S2, no inflammation on the side of right port removal LUNGS: Clear to auscultation bilaterally. No wheezes, rales, or rhonchi. Breathing appears symmetric and easy. ABD: Round, soft, non-tender, non-distended. EXT: No lower extremity edema appreciated. There is moderate swelling of right forearm. Right forearm is not cold, pulses present NEURO: Alert and oriented x 3. 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 Protein S deficiency, recently treated with ceftriaxone for Serratia and septic emboli, also history of Pseudomonas infection of central line was sent from Dr. Orozco office when she noted some pus coming out of her right [id number]. Serratia marcescens and line infection in December that persisted into February 2019. History of Pseudomonas aeruginosa line infection in March 2018. Central line infection Blood culture positive for gram-negative rods, ENTEROBACTER CLOACAE COMPLEX. Sensitive to cefepime. The repeated blood culture is negative for [address] MRSA positive Dr. Trevizo removed infected port, the midline was placed Dr. Orozco recommended need 2 weeks of antibiotics from negative cultures, which would be July 15. Continue antibiotic until July [address] Trevizo will place a port when blood culture negative, after port placement I will start TPN. Most likely the port will be placed on Saturday Patient has multiple issue with port, she will benefit from surgical consult about gastric bypass reversal. She will be having reversal of her gastric bypass sometime in July by Dr. Constantino Right forearm pain Repeated Doppler ultrasound negative Patient developed r. forearm swelling and pain after port was removed Due to persistent pain and discoloration I will proceed with forearm CT Nostril inflammation Patient was tested positive for MRSA She has skin inflammation around nostrils Mupirocin cream ordered with Valtrex Herpes Simplex virus infection HSV swab, result pending Valtrex. Protein calorie malnutrition 2/2 gastric bypass. The patient is TPN dependent VS,Fishbone, I+O VS, Fishbone, I+O Laboratory Tests 07/19/19 07:25 Red Blood Count 3.53 L, Mean Corpuscular Volume 85.8, Mean Corpuscular Hemoglobin 26.3 L, Mean Corpuscular Hemoglobin Concent 30.7 L, Red Cell Distribution Width 15.6 H, Calcium Level 8.4 L Vital Signs Date Time Temp Pulse Resp B/P (MAP) Pulse Ox O2 Delivery O2 Flow Rate FiO2 07/19/19 12:45 18 07/19/19 06:00 98.5 65 101/61 (74) 99 I&O- Last 24 Hours up to 6 AM 07/19/19 06:00 Intake Total 1885 ml Balance 1885 ml TANNER YANCEY DO Jul 19, 2019 14:29
[2019-07-19] MEDS: zolPIDEM CR 6.25MG TABLET (AMBIEN CR) PO PRN (20:38)
[2019-07-19 22:12] VITALS: BP 120/70
[2019-07-20] MEDS: diphenhydrAMINE INJ 50MG/ML VIAL (J1200) IV PRN ×4 (00:13→14:44)
[2019-07-20] MEDS: MORPHINE 4 MG/ML 1ML VIAL/SYRINGE (J2270) IV PRN ×7 (00:13→22:25)
[2019-07-20] MEDS: KCL 40MEQ IN D5/NS 1000ML 1,000 ML IV SCH ×2 (02:27→08:34)
[2019-07-20] MEDS: oxyCODONE 5MG TAB PO PRN ×3 (02:27→20:28)
[2019-07-20 06:00] VITALS: BP 125/71
[2019-07-20 06:31] VITALS: BP 125/71
[2019-07-20 06:46] LABS: HEMATOCRIT 29.4 % (36.0-47.0); MEAN CORPUSCULAR HEMOGLOBIN 26.2 pg (27.0-33.0); MEAN CORPUSCULAR HGB CONC 30.6 g/dl (32.0-36.5); MEAN CORPUSCULAR VOLUME 85.5 fl (80.0-96.0); PLATELET COUNT, AUTOMATED 284 10^3/uL (150-450); RED BLOOD COUNT 3.44 10^6/uL (4.00-5.40); WHITE BLOOD COUNT 4.6 10^3/uL (4.0-10.0)
[2019-07-20] MEDS: SODIUM CHLORIDE 0.9% INJ 10 ML SYR IV SCH ×2 (06:55→18:00)
[2019-07-20] MEDS: ACETAMINOPHEN TAB 650MG DOSE (2X325MG) PO PRN ×2 (06:55→23:45)
[2019-07-20 07:14] LABS: BLOOD UREA NITROGEN 2 MG/DL (7-18); CALCIUM LEVEL 8.7 MG/DL (8.5-10.1); CARBON DIOXIDE LEVEL 28 MEQ/L (21-32); CHLORIDE LEVEL 106 MEQ/L (98-107); CREATININE FOR GFR 0.68 MG/DL (0.55-1.30); GLOMERULAR FILTRATION RATE > 60.0 (>58); GLUCOSE, FASTING 95 MG/DL (70-100); MAGNESIUM LEVEL 2.1 MG/DL (1.8-2.4); POTASSIUM SERUM 4.5 MEQ/L (3.5-5.1); SODIUM LEVEL 140 MEQ/L (136-145)
--- NOTE | 2019-07-20 07:38 | REP ---
CT RIGHT FOREARM WITHOUT CONTRAST: 07/19/2019. Clinical history: Right forearm pain and swelling. Had report of the recent [id number] line infection with removal. She had a left-sided PICC line placed 07/14/2019. Technique: Axial soft-tissue and bone windows with coronal and sagittal reconstructions and bone window settings of each forearm. Findings: Adjacent to the mid to distal ulna posteriorly and peripherally is a zone of subcutaneous edema which is less than one-quarter of the circumference of the arm. The remainder of the subcutaneous fat around the forearm distally and all of its proximal course was unremarkable. I do not see a mass. Lung window review shows no air bubbles in the subcutaneous fat to suggest abscess or gangrene. The ulna itself shows intact cortex and no focal lesion. The radius likewise was intact from its proximal head to the distal articular surface with the wrist. Anterior and posterior compartment muscles were grossly intact at the wrist. There was some edema in the subcutaneous fat along the volar aspect. I do not see a drainable collection of fluid. The elbow was without a definite joint effusion nor was there fluid collection or mass at the olecranon bursa. Impression: 1. Limited zone of subcutaneous edema likely cellulitis involving the mid to distal course of the ulna posteriorly and peripherally with less than one-quarter of the circumference of the forearm involved on the axial images. The remainder the subcutaneous fat of the distal forearm and all the proximal forearm was unremarkable at the wrist. There was some subcutaneous edema along the volar aspect in the focal area but no drainable fluid collection or air bubbles in the subcutaneous tissues. No focal bone lesion. Electronically Signed by Matthew Zuniga MD 07/20/2019 08:50 A
[2019-07-20] MEDS: ENOXAPARIN 60 MG/0.6 ML SYR (J1650) SC SCH ×2 (08:32→20:29)
[2019-07-20] MEDS: cefTRIAXone SOD 2 GM in D5W MINI-BAG PLUS 50 ML IV SCH (08:32)
[2019-07-20] MEDS: DOCUSATE SODIUM 100 MG CAP PO SCH ×2 (08:33→20:28)
[2019-07-20] MEDS: FLUoxetine 20 MG CAP PO SCH (08:33)
[2019-07-20] MEDS: FERROUS GLUCONATE 324 MG TAB PO SCH (08:33)
[2019-07-20] MEDS: valACYclovir HCL 500 MG TAB PO SCH (08:33)
[2019-07-20] MEDS: KETOROLAC 0.5% OPHTH SOLN OD SCH ×4 (08:34→20:34)
[2019-07-20] MEDS: MUPIROCIN 2% OINT 22 GM TUBE TOP SCH ×2 (08:35→20:34)
[2019-07-20] MEDS ORDERED: fentaNYL 100 MCG/2 ML INJECTION (J3010) As Ordered ONE ×2 (09:21→10:00)
[2019-07-20] MEDS ORDERED: MIDAZOLAM INJ 2 MG/2 ML VIAL (J2250) As Ordered ONE ×2 (09:21→10:00)
[2019-07-20] MEDS ORDERED: LIDOCAINE 1% MDV 20ML VIAL As Ordered ONE (09:22)
[2019-07-20] MEDS ORDERED: ceFAZolin 1GM INJ (J0690 PER 500MG) As Ordered ONE (09:22)
[2019-07-20] MEDS ORDERED: diphenhydrAMINE INJ 50MG/ML VIAL (J1200) As Ordered ONE (09:47)
--- NOTE | 2019-07-20 10:22 | IRMSE ---
[facility] IR Moderate Sedation Eval. Date and Time Date: Jul 20, 2019 Time: 09:23 ASA Classification ASA Classification: II-Mild systemic disease Mallampati Score: I NPO: Yes Obstructive Sleep Apnea: No Interval Plan: moderate sedation KARSTEN QUACH MD Jul 20, 2019 10:22
--- NOTE | 2019-07-20 10:23 | POST-OPPD ---
Postoperative Procedure Note Date Of Procedure: Jul 20, 2019 Time Of Procedure: 10:22 PREOPERATIVE DIAGNOSIS: malnourished POSTOPERATIVE DIAGNOSIS: malnourished FINDINGS: patent left IJ PROCEDURE: left IJ levine for planned TPN SURGEON: priscila ANESTHESIA: moderate sedation ESTIMATED BLOOD LOSS: < 5 ml COMPLICATIONS: none POSTOPERATIVE CONDITION: stable KARSTEN QUACH MD Jul 20, 2019 10:23
[2019-07-20 10:40] VITALS: BP 126/71
--- NOTE | 2019-07-20 12:19 | IPNPDOC ---
Text Note Date of Service The patient was seen on 07/20/19. NOTE Subjective: Patient continues to complain of right forearm swelling, patient continues to have brownish discoloration of distal part of the forearm. Port for TPN was placed today Patient denies fever, chills, vomiting, shortness of breath. Objective: GEN: NAD HEENT: Normocephalic, atraumatic. Moist mucous membranes. CHEST: S1-S2, no inflammation on the side of right port removal LUNGS: Clear to auscultation bilaterally. No wheezes, rales, or rhonchi. Breathing appears symmetric and easy. ABD: Round, soft, non-tender, non-distended. EXT: No lower extremity edema appreciated. There is moderate swelling of right forearm. Right forearm is not cold, pulses present NEURO: Alert and oriented x 3. 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 Protein S deficiency, recently treated with ceftriaxone for Serratia and septic emboli, also history of Pseudomonas infection of central line was sent from Dr. Orozco office when she noted some pus coming out of her right [id number]. Serratia marcescens and line infection in December that persisted into February 2019. History of Pseudomonas aeruginosa line infection in March 2018. During hospital stay of the port was removed, patient received treatment with antibiotics, blood culture was negative for 72 hours, the new port was inserted, TPN started on 07/20/19. Central line infection Blood culture positive for gram-negative rods, ENTEROBACTER CLOACAE COMPLEX. Sensitive to cefepime. The repeated blood culture is negative for [address] MRSA positive [address] Trevizo removed infected port, the midline was placed. On 07/20/19 the new port was inserted, TPN started on 07/20/19. Dr. Orozco recommended need 2 weeks of antibiotics from negative cultures, which would be July 15. Continue antibiotic until July 29 Pain management Patient has multiple issue with port, she will benefit from surgical consult about gastric bypass reversal. She will be having reversal of her gastric bypass sometime in July by Dr. Constantino Right forearm pain Repeated Doppler ultrasound negative Patient developed r. forearm swelling and pain after port was removed Due to persistent pain and discoloration I proceeded with forearm CT, which shows no fracture, positive for swelling consistent with cellulitis, however patient does not have leukocytosis, fever, chills Nostril inflammation Patient was tested positive for MRSA She has skin inflammation around nostrils Mupirocin cream ordered with Valtrex Herpes Simplex virus infection HSV swab, result pending Valtrex. Protein calorie malnutrition 2/2 gastric bypass. The patient is TPN dependent TPN was re initiated, Continue to monitor CMP, phosphorus, potassium for re-feeding syndrome Appreciate/agree with institutional nutrition consultant recommendation Joel MUÑOZ, I+O Joel MUÑOZ I+O Laboratory Tests 07/20/19 06:29 Red Blood Count 3.44 L, Mean Corpuscular Volume 85.5, Mean Corpuscular Hemoglobin 26.2 L, Mean Corpuscular Hemoglobin Concent 30.6 L, Red Cell Distribution Width 15.3 H, Calcium Level 8.7 Vital Signs Date Time Temp Pulse Resp B/P (MAP) Pulse Ox O2 Delivery O2 Flow Rate FiO2 07/20/19 11:33 18 07/20/19 10:40 98.9 85 126/71 (89) 100 07/20/19 10:10 2 I&O- Last 24 Hours up to 6 AM 07/20/19 06:00 Intake Total 900 ml Balance 900 ml TANNER YANCEY DO Jul 20, 2019 12:19
[2019-07-20 13:51] VITALS: BP 126/73
[2019-07-20] MEDS: ONDANSETRON 4MG/2ML VIAL (J2405) IV PRN (14:43)
--- NOTE | 2019-07-20 15:17 | REP ---
IR Galicia catheter insertion under fluoroscopy and ultrasound guidance. Ultrasound of the left neck. Clinical information: Malnourished. Needs Galicia catheter for TPN. Physician: Dr. Gomez. Procedure: The patient was advised of the benefits, risks and alternatives of the procedure and informed consent was obtained. The time-out was performed with verification of the patient's name, MRN, site of procedure and type of procedure to be performed. The patient was positioned in the supine position on the angiographic table. The site was prepped and draped in the usual sterile fashion. Moderate sedation was performed by the physician including the presence of an independent trained observer that assisted in monitoring the patient's level of consciousness and physiologic status. Following the administration of Versed and Fentanyl, the physician spent 45 minutes of continuous face to face time with the patient. Ultrasound of the neck reveals a patent and compressible left internal jugular vein. A senior lead java developer radiograph reveals no significant abnormality. The neck and anterior chest wall were anesthetized with lidocaine. The left internal jugular vein was accessed using a micro introducer needle by a lateral approach. The 018 cope wire was advanced into the superior vena cava. The needle was removed and a micro introducer sheath was placed. An Amplatz wire was then passed into the inferior vena cava. Incision at the internal jugular access site and anterior chest wall were made using a scalpel. A dual-lumen Galicia catheter was inserted through the subcutaneous tissues of the chest wall with a tunneling device. The micro introducer sheath was removed and internal jugular puncture site was upsized with dilator. A peel-away sheath was placed over the wire and into the superior vena cava. The wire and stiffener were removed. The catheter was passed through the internal jugular vein via the sheath. The peel-away sheath was then removed. The catheter tip was positioned in the cavo atrial junction. The puncture site was closed. The catheter was secured in place using 2-0 Prolene. Both sites were cleansed and sterile dressing was applied. At the conclusion of the procedure, the ports of the catheter aspirate and flush freely. The patient tolerated the procedure well and was returned to [facility] in stable condition. EBL: Less than 5 ml. Complications: None. Conclusion: Successful placement of a dual-lumen Galicia catheter. The catheter is ready for immediate use. Thank you this referral. Electronically Signed by Kisha Gomez MD 07/20/2019 03:15 P
[2019-07-20] MEDS ORDERED: FAT EMULSION IV 20% 500 ML IV SCH (18:00)
[2019-07-20] MEDS: HumaLOG INSULIN (NovoLOG) PER UNIT SC SCH (18:00)
[2019-07-20] MEDS ORDERED: MULTIVITAMIN -ADULT INJECTION 10 ML, CR/CU/SE/MN/ZN INJ 1 ML in AMINO AC/ELECTROLYTE/DE... IV SCH (18:00)
--- NOTE | 2019-07-20 18:19 | IPN ---
DATE: 07/20/2019 Claude continues complaining of right forearm swelling with brownish discoloration, which has increased in size. She has a new central line placed by Dr. Gomez today. She still has her midline in her left arm for blood draws as she refuses to have blood draws peripherally. She has had no fever or chills. No nausea, vomiting or diarrhea. No shortness of breath. PHYSICAL EXAMINATION: Heart: Normal S1, S2. No murmurs, rubs or gallops. Lungs are clear. No wheezes, rales or rhonchi. Abdomen: Soft, nontender, obese. Extremities: No lower extremity edema, swelling of the right forearm with brownish discoloration, tender to touch. The discoloration measures about 15 cm x 5 cm along the forearm and then there is another area under the wrist that measures 4 x 3 cm. They are both tender to touch. There might be a cord felt along the forearm as well. Temperature is 98.2, pulse 86, respirations 18, blood pressure 126/73, oxygen saturation (O2 sat) 100% on room air. Wound culture had Enterobacter cloacae on 07/13, but the port culture also had Staphylococcus (staph) epidermidis that was resistant to oxacillin. This was a finalized report from 07/18/2019. LABORATORY DATA: White count is 4.6, hemoglobin 9, hematocrit 29.4, platelets 284. Sodium 140, potassium 4.5, chloride 106, bicarbonate 28, BUN 2, creatinine 0.68, glucose 85, calcium 8.7, magnesium 2.1. IMPRESSION: 1. Line infection with culture positive for Enterobacter cloacae and Staphylococcus epidermidis. 2. Cellulitis of the right forearm with CT findings showing subcutaneous edema along the mid to distal course of the ulna, posterior and peripherally. There is no fluid collections. 3. Severe gastroparesis status post gastric bypass, on total parenteral nutrition (TPN). TPN will be restarted today. PLAN: 1. Start IV vancomycin to cover for Staphylococcus epidermidis cellulitis of the right forearm, as this may be the cause for this worsening swelling of the right forearm, at the dose of 1 gram every 8 hours and then dose per levels. If she is clinically improved, she could be switched to oral linezolid for that would cover for staph epidermidis along with IV Rocephin. 2. Herpes simplex virus (HSV) nose. That has healed. Will discontinue Valtrex. Consult patient and family services (PFS) for home IV antibiotics, TPN and prior authorization for linezolid at the dose of 600 mg by mouth twice a day for 10 days. End of treatment for IV antibiotics will be July 29, 2019.
[2019-07-20 19:16] LABS: ALBUMIN 3.3 GM/DL (3.2-5.2); ALT/SGPT 39 U/L (12-78); BILIRUBIN,TOTAL 0.4 MG/DL (0.2-1.0); BLOOD UREA NITROGEN 3 MG/DL (7-18); CALCIUM LEVEL 8.8 MG/DL (8.5-10.1); CARBON DIOXIDE LEVEL 27 MEQ/L (21-32); CHLORIDE LEVEL 102 MEQ/L (98-107); CREATININE FOR GFR 0.66 MG/DL (0.55-1.30); GLOMERULAR FILTRATION RATE > 60.0 (>58); GLUCOSE, FASTING 106 MG/DL (70-100); PHOSPHORUS LEVEL 4.8 MG/DL (2.5-4.9); POTASSIUM SERUM 4.3 MEQ/L (3.5-5.1); SODIUM LEVEL 137 MEQ/L (136-145); TOTAL PROTEIN 6.6 GM/DL (6.4-8.2)
--- NOTE | 2019-07-20 20:07 | PHACANCOPD ---
PHARMACY VANCOMYCIN DOSING Pt Demographics Demographics Patient Age:39 , Weight:70.000 , Gender: female Adjusted Body Weight Date: 07/20/19, Adjusted Body Weight: Kg Events Past 24 Hours Events Past 24 Hours: NO: Dialysis, Diuretic Therapy, Change in CrCl, Fever, Elevation in WBC, Pending Diagnostics, Pending Procedures, Other Vancomycin Vancomycin indication: SEPSIS, PNEUMONIA Vancomycin Target Ranges: 15-20 mcg/ml Vancomycin Load Y/N: Yes Load Dose Date Time Vancomycin Load Dose: 1.5G Date: 07/20/19 Time:20:00 Vancomycin Dose Date: 07/20/19. Current Vancomycin Dose: [1G IV Q8H] Intermittent Dosing?: No Labs Labs Item Value Date Time White Blood Count 3.1 10^3/uL L 07/18/19 0630 White Blood Count 3.6 10^3/uL L 07/19/19 0725 White Blood Count 4.6 10^3/uL 07/20/19 0629 Creatinine 0.74 MG/DL 07/19/19 0725 Creatinine 0.68 MG/DL 07/20/19 0629 Creatinine 0.66 MG/DL 07/20/19 1818 Micro Microbiology 07/16/19 Blood Culture - Preliminary, Resulted No Growth after 72 hours. All specime... 07/15/19 Blood Culture - Final, Complete NO GROWTH AFTER 5 DAYS 07/13/19 Blood Culture - Final, Complete Enterobacter Cloacae Complex Staphylococcus Epidermidis 07/13/19 Blood Culture - Final, Complete Enterobacter Cloacae Complex Creatinine Clearance Date:07/20/19. Creatinine Clearance: [113ML/MIN]. Pending Labs VANCOMYCIN TROUGH 07/21/19 @1900 Assessment and Plan Maintaining Current Dose?: Yes Reason for dose change: No Dose Change Pharmacist Note Pharmacist Note Date: 07/20/19. Pharmacist note: Pt is a 39 year old female being treated for severe sepsis and pneumonia goal trough 15-20mcg/ml. The patient has been treated with vancomycin therapy here at [facility] in the past. To achieve goal a 1.5g loading dose will start 07/20/19 @20:00. Maintenance therapy will consist of 1g I V every 8 hours. A trough is scheduled for 07/21/19 @1900. We will continue to monitor and adjust the dose as needed. [facility] Jul 20, 2019 20:07
[2019-07-20] MEDS: zolPIDEM CR 6.25MG TABLET (AMBIEN CR) PO PRN (20:28)
[2019-07-20] MEDS ORDERED: VANCOMYCIN HCL 500 MG in D5W MINI-BAG PLUS 100 ML IV ONE (21:00)
[2019-07-20] MEDS: VANCOMYCIN HCL 1,000 MG, VIAL MATE ADAPTER 1 EACH in D5W 250 ML IV SCH (21:01)
[2019-07-20 21:30] VITALS: BP 118/76
[2019-07-20 22:52] LABS: ALBUMIN 3.3 GM/DL (3.2-5.2); ALT/SGPT 38 U/L (12-78); BILIRUBIN,TOTAL 0.5 MG/DL (0.2-1.0); BLOOD UREA NITROGEN 5 MG/DL (7-18); CALCIUM LEVEL 8.8 MG/DL (8.5-10.1); CARBON DIOXIDE LEVEL 29 MEQ/L (21-32); CHLORIDE LEVEL 102 MEQ/L (98-107); CREATININE FOR GFR 0.66 MG/DL (0.55-1.30); GLOMERULAR FILTRATION RATE > 60.0 (>58); GLUCOSE, FASTING 124 MG/DL (70-100); PHOSPHORUS LEVEL 4.8 MG/DL (2.5-4.9); POTASSIUM SERUM 4.7 MEQ/L (3.5-5.1); SODIUM LEVEL 137 MEQ/L (136-145); TOTAL PROTEIN 6.6 GM/DL (6.4-8.2)
[2019-07-21] MEDS: diphenhydrAMINE INJ 50MG/ML VIAL (J1200) IV PRN ×2 (00:58→06:13)
[2019-07-21] MEDS: HumaLOG INSULIN (NovoLOG) PER UNIT SC SCH ×4 (00:58→18:00)
[2019-07-21] MEDS: MORPHINE 4 MG/ML 1ML VIAL/SYRINGE (J2270) IV PRN ×3 (01:30→08:13)
[2019-07-21 02:33] LABS: ALBUMIN 3.4 GM/DL (3.2-5.2); ALT/SGPT 36 U/L (12-78); BILIRUBIN,TOTAL 0.5 MG/DL (0.2-1.0); BLOOD UREA NITROGEN 6 MG/DL (7-18); CALCIUM LEVEL 8.9 MG/DL (8.5-10.1); CARBON DIOXIDE LEVEL 29 MEQ/L (21-32); CHLORIDE LEVEL 102 MEQ/L (98-107); CREATININE FOR GFR 0.74 MG/DL (0.55-1.30); GLOMERULAR FILTRATION RATE > 60.0 (>58); GLUCOSE, FASTING 104 MG/DL (70-100); POTASSIUM SERUM 4.6 MEQ/L (3.5-5.1); SODIUM LEVEL 140 MEQ/L (136-145); TOTAL PROTEIN 6.7 GM/DL (6.4-8.2)
[2019-07-21] MEDS: VANCOMYCIN HCL 1,000 MG, VIAL MATE ADAPTER 1 EACH in D5W 250 ML IV SCH ×3 (04:30→20:15)
[2019-07-21] MEDS: ACETAMINOPHEN TAB 650MG DOSE (2X325MG) PO PRN ×2 (04:32→16:35)
[2019-07-21 06:01] VITALS: BP 110/74
[2019-07-21] MEDS: oxyCODONE 5MG TAB PO PRN ×3 (06:13→20:14)
[2019-07-21] MEDS: SODIUM CHLORIDE 0.9% INJ 10 ML SYR IV SCH ×2 (06:14→18:00)
[2019-07-21 07:03] LABS: HEMATOCRIT 32.7 % (36.0-47.0); MEAN CORPUSCULAR HEMOGLOBIN 26.7 pg (27.0-33.0); MEAN CORPUSCULAR HGB CONC 30.6 g/dl (32.0-36.5); MEAN CORPUSCULAR VOLUME 87.4 fl (80.0-96.0); PLATELET COUNT, AUTOMATED 337 10^3/uL (150-450); RED BLOOD COUNT 3.74 10^6/uL (4.00-5.40)
[2019-07-21 07:27] LABS: BLOOD UREA NITROGEN 8 MG/DL (7-18); CALCIUM LEVEL 9.1 MG/DL (8.5-10.1); CARBON DIOXIDE LEVEL 32 MEQ/L (21-32); CHLORIDE LEVEL 100 MEQ/L (98-107); CREATININE FOR GFR 0.71 MG/DL (0.55-1.30); GLOMERULAR FILTRATION RATE > 60.0 (>58); GLUCOSE, FASTING 107 MG/DL (70-100); MAGNESIUM LEVEL 2.2 MG/DL (1.8-2.4); POTASSIUM SERUM 4.8 MEQ/L (3.5-5.1); SODIUM LEVEL 138 MEQ/L (136-145)
[2019-07-21] MEDS: ENOXAPARIN 60 MG/0.6 ML SYR (J1650) SC SCH ×2 (08:12→20:12)
[2019-07-21] MEDS: FERROUS GLUCONATE 324 MG TAB PO SCH (08:12)
[2019-07-21] MEDS: DOCUSATE SODIUM 100 MG CAP PO SCH ×2 (08:12→20:11)
[2019-07-21] MEDS: FLUoxetine 20 MG CAP PO SCH (08:12)
[2019-07-21] MEDS: cefTRIAXone SOD 2 GM in D5W MINI-BAG PLUS 50 ML IV SCH (08:12)
[2019-07-21] MEDS: MUPIROCIN 2% OINT 22 GM TUBE TOP SCH ×2 (08:13→20:16)
[2019-07-21] MEDS: KETOROLAC 0.5% OPHTH SOLN OD SCH ×5 (08:14→20:16)
--- NOTE | 2019-07-21 11:05 | IPNPDOC ---
Subjective Date Seen The patient was seen on 07/21/19. Subjective Chief Complaint/HPI Patient is clinically stable. Offers no new complaints. Wants to go home on home antibiotics General: Denies: ROS Unobtainable, Chills, Night Sweats, Fatigue, Malaise, Normal Appetite, Other Symptoms Constitutional: Denies: Chills, Fever, Malaise, Night Sweats, Weakness, Fatigue, Weight Loss, Lethargy, Other Skin: Denies: Rash, Lesions, Jaundice, Bruising, Itching, Dry, Breakdown, Nail Changes, Other Pulmonary: Denies: Dyspnea, Cough Cardiovascular: Denies: Chest Pain, Palpitations, Orthopnea, Paroxysmal Noc. Dyspnea, Edema, Lt Headedness, Other Symptoms Gastrointestinal: Denies: Nausea, Vomiting, Abdominal Pain, Diarrhea, Constipation, Melena, Hematochezia, Other Symptoms Genitourinary: Denies: Dysuria, Frequency, Incontinence, Hematuria, Retention, Other Symptoms Hematologic: Denies: Bruising, Bleeding Excessively, Petecchia, Purpura, Enlarged Lymph Nodes, Other Hematologic Endocrine: Denies: Polydipsia, Polyphagia, Polyuria, Heat Intolerance, Cold Intolerance, Other Endocrine Sx Musculoskeletal: Denies: Neck Pain, Back Pain, Shoulder Pain, Arm Pain, Hand Pain, Leg Pain, Foot Pain, Joint Pain, Muscle Pain, Spasms, Other Symptoms Neurological: Denies: Weakness, Numbness, Incoordination, Change in speech, Confusion, Seizures, Other Symptoms Objective Physical Examination General Exam: Positive: Alert, Cooperative Eye Exam: Positive: PERRLA, Conjunctiva & lids normal ENT Exam: Positive: Atraumatic, Mucous membr. moist/pink Neck Exam: Positive: Supple Chest Exam: Positive: Clear to auscultation, Normal air movement Heart Exam: Positive: Rate Normal, Normal S1, Normal S2 Abdomen Exam: Positive: Normal bowel sounds, Soft Extremity Exam: Positive: Normal pulses Skin Exam: Positive: Nl turgor and temperature Neuro Exam: Positive: Strength at 5/5 X4 ext, Sensation Intact Psych Exam: Positive: Mental status NL, Mood NL, Oriented x 3 Assessment /Plan Problems (1) Central line infection Status: Acute Problem Text: Causative organisms are Enterobacter and Staphylococcus epidermidis Patient has been started on IV Rocephin and vancomycin Vancomycin can be changed to by mouth Zyvox. If is preapproved . We will DC all IV, Benadryl IV, morphine before getting patient ready for discharge tomorrow Ali home pain medication will be continued . We'll continue Rocephin until 07/29/2019 And Zyvox 600 mg by mouth twice a day for 10 days Continue home TPN possible discharge home in a.m. Plan/VTE VTE Prophylaxis Ordered?: Yes VS, I&O, 24H, Fishbone Vital Signs/I&O Vital Signs Date Time Temp Pulse Resp B/P (MAP) Pulse Ox O2 Delivery O2 Flow Rate FiO2 07/21/19 08:13 18 07/21/19 06:01 97.4 85 110/74 (86) 97 07/20/19 10:10 2 I&O- Last 24 Hours up to 6 AM 07/21/19 06:00 Intake Total 950 ml Balance 950 ml Laboratory Data 24H LABS Laboratory Tests 2 07/20/19 18:01: Bedside Glucose (Misc Panel) 96 07/20/19 18:18: Anion Gap 8, Glomerular Filtration Rate > 60.0, Blood Urea Nitrogen 3L, Creatinine 0.66, Sodium Level 137, Potassium Level 4.3, Chloride Level 102, Carbon Dioxide Level 27, Calcium Level 8.8, Phosphorus Level 4.8, Aspartate Amino Transf (AST/SGOT) 33, Alanine Aminotransferase (ALT/SGPT) 39, Alkaline Phosphatase 190H, Total Bilirubin 0.4, Total Protein 6.6, Albumin 3.3, Albumin/Globulin Ratio 1.00 07/20/19 22:16: Anion Gap 6L, Glomerular Filtration Rate > 60.0, Blood Urea Nitrogen 5#L, Creatinine 0.66, Sodium Level 137, Potassium Level 4.7, Chloride Level 102, Carbon Dioxide Level 29, Calcium Level 8.8, Phosphorus Level 4.8, Aspartate Amino Transf (AST/SGOT) 55H, Alanine Aminotransferase (ALT/SGPT) 38, Alkaline Phosphatase 202H, Total Bilirubin 0.5, Total Protein 6.6, Albumin 3.3, Albumin/Globulin Ratio 1.00 07/21/19 00:05: Bedside Glucose (Misc Panel) 116H 07/21/19 01:51: Anion Gap 9, Glomerular Filtration Rate > 60.0, Blood Urea Nitrogen 6L, Creatinine 0.74, Sodium Level 140, Potassium Level 4.6, Chloride Level 102, Carbon Dioxide Level 29, Calcium Level 8.9, Phosphorus Level 5.0H, Aspartate Amino Transf (AST/SGOT) 31, Alanine Aminotransferase (ALT/SGPT) 36, Alkaline Phosphatase 198H, Total Bilirubin 0.5, Total Protein 6.7, Albumin 3.4, Albumin/Globulin Ratio 1.03 07/21/19 06:39: Anion Gap 6L, Glomerular Filtration Rate > 60.0, Blood Urea Nitrogen 8, Creatinine 0.71, Sodium Level 138, Potassium Level 4.8, Chloride Level 100, Carbon Dioxide Level 32, Calcium Level 9.1, Nucleated Red Blood Cells % (auto) 0.0, Magnesium Level 2.2 CBC/BMP Laboratory Tests 07/20/19 18:18 Calcium Level 8.8, Phosphorus Level 4.8, Aspartate Amino Transf (AST/SGOT) 33, Alanine Aminotransferase (ALT/SGPT) 39, Alkaline Phosphatase 190 H, Total Bilirubin 0.4, Total Protein 6.6, Albumin 3.3 07/20/19 22:16 Calcium Level 8.8, Phosphorus Level 4.8, Aspartate Amino Transf (AST/SGOT) 55 H, Alanine Aminotransferase (ALT/SGPT) 38, Alkaline Phosphatase 202 H, Total Bilirubin 0.5, Total Protein 6.6, Albumin 3.3 07/21/19 01:51 Calcium Level 8.9, Phosphorus Level 5.0 H, Aspartate Amino Transf (AST/SGOT) 31, Alanine Aminotransferase (ALT/SGPT) 36, Alkaline Phosphatase 198 H, Total Bilirubin 0.5, Total Protein 6.7, Albumin 3.4 07/21/19 06:39 Calcium Level 9.1, Red Blood Count 3.74 L, Mean Corpuscular Volume 87.4, Mean Corpuscular Hemoglobin 26.7 L, Mean Corpuscular Hemoglobin Concent 30.6 L, Red C ell Distribution Width 15.4 H Microbiology Microbiology 07/16/19 Blood Culture - Preliminary, Resulted No Growth after 72 hours. All specime... 07/15/19 Blood Culture - Final, Complete NO GROWTH AFTER 5 DAYS 07/13/19 Blood Culture - Final, Complete Enterobacter Cloacae Complex Staphylococcus Epidermidis 07/13/19 Blood Culture - Final, Complete Enterobacter Cloacae Complex BETZY PURI MD Jul 21, 2019 11:05
[2019-07-21 13:47] VITALS: BP 108/71
[2019-07-21 16:17] LABS: C REACTIVE PROTEIN QUANTITATIV 0.42 MG/DL (0.00-0.30)
[2019-07-21] MEDS: ONDANSETRON 4MG/2ML VIAL (J2405) IV PRN (16:34)
[2019-07-21] MEDS ORDERED: AMINO AC/ELECTROLYTE/DEX/CALC 2,000 ML IV SCH (18:00)
[2019-07-21] MEDS ORDERED: FAT EMULSION IV 20% 500 ML IV SCH (18:00)
[2019-07-21] MEDS: zolPIDEM CR 6.25MG TABLET (AMBIEN CR) PO PRN (20:11)
--- NOTE | 2019-07-21 21:57 | IPN ---
DATE: 07/21/2019 Claude seems to be doing a little better today. She has no new complaints. Her arm pain has decreased since intravenous (IV) vancomycin. Labs: White count is 5, hemoglobin 10, hematocrit 32.7, platelets 337. Sodium 138, potassium 4.8, chloride 100, bicarbonate 32, BUN 8, creatinine 0.71, glucose 107, calcium 9.1, magnesium 2.2, CRP 0.42. Blood cultures 07/15/2019 and 07/16/2019 were no growth. On physical exam, temperature is 98.7, pulse 115, respirations 18, blood pressure 108/71, oxygen saturation (O2 sat) 97% on room air. Heart: Normal S1, S2, tachycardic. Lungs are clear. Abdomen is soft, nontender, obese. Extremities: No edema. Right forearm brownish discoloration along (the entire--maybe starting over, omit the entire and put half the forearm, has decreased in redness and intensity and decreased tenderness. Still warm to touch. IMPRESSION: 1. Line infection with Staphylococcus (staph) epidermidis and Enterobacter cloacae. 2. Cellulitis of right arm. 3. Poor IV access, on total parenteral nutrition (TPN). 4. History of gastric bypass. PLAN: 1. Continue IV Rocephin. The patient will receive 2 grams every 24 hours until 07/29/2019. The patient can do home IV antibiotics at home. Please obtain prior authorization. 2. Cellulitis of right forearm, on IV vancomycin - improved. Switch patient to oral Zyvox 600 mg by mouth twice a day for 10 days. Please obtain prior authorization. CBC, CMP, CRP once weekly while on antibiotics. From an infectious disease standpoint, the patient could be discharged home. Please discontinue midline from the left arm. I have discussed the case with Dr. Gomez who stated that blood draws can be obtained from her Galicia.
[2019-07-21 22:00] VITALS: BP 109/72
[2019-07-22] MEDS: VANCOMYCIN HCL 1,000 MG, VIAL MATE ADAPTER 1 EACH in D5W 250 ML IV SCH (04:04)
[2019-07-22] MEDS: SODIUM CHLORIDE 0.9% INJ 10 ML SYR IV SCH (05:39)
[2019-07-22] MEDS: HumaLOG INSULIN (NovoLOG) PER UNIT SC SCH ×2 (05:42)
[2019-07-22 06:00] VITALS: BP 105/61
[2019-07-22] MEDS: cefTRIAXone SOD 2 GM in D5W MINI-BAG PLUS 50 ML IV SCH (08:53)
[2019-07-22] MEDS: FERROUS GLUCONATE 324 MG TAB PO SCH (08:54)
[2019-07-22] MEDS: ENOXAPARIN 60 MG/0.6 ML SYR (J1650) SC SCH (08:54)
[2019-07-22] MEDS: DOCUSATE SODIUM 100 MG CAP PO SCH (08:55)
[2019-07-22] MEDS: oxyCODONE 5MG TAB PO PRN (08:55)
[2019-07-22] MEDS: KETOROLAC 0.5% OPHTH SOLN OD SCH (08:55)
[2019-07-22] MEDS: FLUoxetine 20 MG CAP PO SCH (08:55)
[2019-07-22] MEDS: MUPIROCIN 2% OINT 22 GM TUBE TOP SCH (08:56)
[2019-07-22] MEDS ORDERED: ZYVO1TAB PO (09:34)
[2019-07-22 10:00] VITALS: BP 104/72
--- NOTE | 2019-07-22 13:03 | DS.PDOC ---
Discharge Summary General Date of Admission Jul 13, 2019 at 14:31 Date of Discharge 07/22/19 Attending Physician: BETZY PURI MD Discharge Summary PROCEDURES PERFORMED DURING STAY: None. ADMITTING DIAGNOSES: 1. Infected venous access. DISCHARGE DIAGNOSES: 1. Infected venous access, gastroparesis, septic emboli, anemia. COMPLICATIONS/CHIEF COMPLAINT: Infusaport Line Infection. 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 Protein S deficiency, recently treated with ceftriaxone for Serratia and septic emboli, also history of Pseudomonas infection of central line was sent from Dr. Choi was office when she noted some pus coming out of her right [id number]. Patient offers no complaints. No chest pain, no shortness of breath, no nausea, vomiting, etc. . HOSPITAL COURSE: Patient was directly admitted to the floor with the diagnosis of infected central venous access, Patient was seen by Dr. nguyen from infectious disease and had a pancultures done Wound culture is positive for Enterobacter and a Staphylococcus epidermidis pt initially was started on IV Rocephin and IV vancomycin Later vancomycin was changed to by mouth Zyvox 600 mg by mouth twice a day for 10 days. Once the prior authorization was approved All IV narcotics and Benadryl as were DC'd before discharge All home meds will be continues as previously TPN will be continues as previously We'll continue Rocephin until 07/29/2019 . DISCHARGE MEDICATIONS: Please see below. ALLERGIES: Please see below. PHYSICAL EXAMINATION ON DISCHARGE: VITAL SIGNS: Please see below. GENERAL: Awake, alert, oriented 3, no apparent distress HEENT: PERRLA. Extraocular muscles intact NECK: Supple, no JVD, no lymphadenopathy CARDIOVASCULAR EXAMINATION: S1, S2, regular RESPIRATORY EXAMINATION: Clear to A&P ABDOMINAL EXAMINATION: , Soft, nontender, bowel sounds present. No organomegaly EXTREMITIES: No clubbing, cyanosis, edema SKIN: Some discoloration and right forearm. Otherwise no rash NEUROLOGICAL EXAMINATION: . No focal motor sensory deficit PSYCHIATRIC EXAMINATION: Normal LABORATORY DATA: Please see below. IMAGING: Chest x-ray:Impression: Negative chest x-ray. PROGNOSIS: Good ACTIVITY: As tolerated. DIET: Patient is on TPN DISCHARGE PLAN: Discharged home with home care DISPOSITION: Home, Self-Care. DISCHARGE INSTRUCTIONS: 1. As per discharge instruction. ITEMS TO FOLLOWUP ON ON OUTPATIENT: 1. Follow with PCP in one week. DISCHARGE CONDITION: Stable. TIME SPENT ON DISCHARGE: 35 minutes. Vital Signs/I&Os Vital Signs Date Time Temp Pulse Resp B/P (MAP) Pulse Ox O2 Delivery O2 Flow Rate FiO2 07/22/19 10:00 98.6 114 20 104/72 (83) 97 07/20/19 10:10 2 I&O- Last 24 Hours up to 6 AM 07/22/19 06:00 Intake Total 4160 ml Balance 4160 ml Laboratory Data Labs 24H Laboratory Tests 2 07/21/19 18:08: Bedside Glucose (Misc Panel) 119H 07/21/19 18:53: Vancomycin Level Trough 16.8 07/22/19 05:40: Bedside Glucose (Misc Panel) 132H FSBS Laboratory Tests Test 07/21/19 18:08 07/22/19 05:40 Range/Units Bedside Glucose (Misc Panel) 119 132 70-105 MG/DL Microbiology Microbiology 07/16/19 Blood Culture - Final, Complete NO GROWTH AFTER 5 DAYS 07/15/19 Blood Culture - Final, Complete NO GROWTH AFTER 5 DAYS 07/13/19 Blood Culture - Final, Complete Enterobacter Cloacae Complex Staphylococcus Epidermidis 07/13/19 Blood Culture - Final, Complete Enterobacter Cloacae Complex Discharge Medications Scheduled Enoxaparin Sodium (Enoxaparin Sodium) 60 Mg/0.6 Ml Syringe, 60 MG SQ Q12H, (Reported) Fluoxetine Hcl (Fluoxetine HCl) 20 Mg Capsule, 20 MG PO DAILY, (Reported) Heparin Sodium,Porcine/Pf (Heparin 1,000 Unit/10 (100/ml)) 1,000 Unit/10 Ml Syringe, 500 UNIT IV DAILY, (Reported) THROUGH PICC LINE Linezolid (Zyvox) 600 Mg Tablet, 600 MG PO BID with food Zolpidem Tartrate (Zolpidem Tartrate ER) 6.25 Mg Tab.mphase, 6.25 MG PO QHS, (Reported) Scheduled PRN Acetaminophen (Acetaminophen) 500 Mg Tablet, 500 MG PO Q6H PRN for PAIN, (Reported) Albuterol Sulf (Albuterol Sulfate) 2.5 Mg/3 Ml Vial.neb, 2.5 MG INH Q4H PRN for SHORTNESS OF BREATH, (Reported) Albuterol Sulfate (Ventolin Hfa) 18 Gm Hfa.aer.ad, 2 PUFF INH Q6H PRN for SHORTNESS OF BREATH, (Reported) Hydroxyzine HCl (Hydroxyzine HCl) 25 Mg Tablet, 25 MG PO Q6H PRN for NAUSEA, (Reported) Ondansetron (Ondansetron HCl 4 mg/2 ml Vial) 4 Mg/2 Ml Inj, 8 MG IV Q8H PRN for NAUSEA OR VOMITING, (Reported) GIVEN THROUGH PICC LINE Oxycodone HCl (Oxycodone HCl) 5 Mg Tablet, 5 MG PO Q6H PRN for PAIN, (Reported) CAN TAKE UP TO 10MG PER DOSE Promethazine HCl (Phenadoz) 25 Mg Sup, 25 MG GA Q12H PRN for NAUSEA OR VOMITING, (Reported) Allergies Coded Allergies: Sulfa (Sulfonamide Antibiotics) (Verified Allergy, Severe, RESP. PROBLEMS, SWELLING, HIVES, 01/14/19) butorphanol (Verified Allergy, Severe, HIVES/RESP. PROBLEMS (PERCOCET AND TYL#3 OK), 01/14/19) HAS HAD MORPHINE AND DILAUDID IN THE PAST levofloxacin (Verified Allergy, Severe, THROAT SWELLING/HIVES, 01/14/19) tomato (Verified Allergy, Severe, RESP. PROBLEMS, HIVES, 01/14/19) tramadol (Verified Allergy, Severe, SOB - HAS HAD MORPHINE AND DILAUDID IN THE PAST, 01/14/19) scopolamine (Verified Adverse Reaction, Intermediate, VISION LOSS, 01/14/19) NSAIDS (Non-Steroidal Anti-Inflamma (Verified Adverse Reaction, Mild, GASTRIC BYPASS, 01/14/19) BETZY PURI MD Jul 22, 2019 13:03
[2019-07-22] MEDS ORDERED: HumaLOG INSULIN (NovoLOG) PER UNIT SC SCH (18:00)
[2019-07-22] MEDS ORDERED: MULTIVITAMIN -ADULT INJECTION 10 ML, CR/CU/SE/MN/ZN INJ 1 ML in AMINO AC/ELECTROLYTE/DE... IV SCH (18:00)
[2019-07-22] MEDS ORDERED: FAT EMULSION IV 20% 500 ML IV SCH (18:00)
== END 2019-07-22 11:55 | disposition home or self-care (01) | DRG 182 ==
LOC: M MS5PR 14:31
PROVIDERS: ADMIT Internal Medicine; ATTEND Internal Medicine
PROC: 05HC33Z Insertion of Infusion Device into Left Basilic Vein, Percutaneous Approach (ICD-10-PCS; 2019-07-14)
PROC: 05PY33Z Removal of Infusion Device from Upper Vein, Percutaneous Approach (ICD-10-PCS; principal; 2019-07-16)
PROC: 02HV33Z Insertion of Infusion Device into Superior Vena Cava, Percutaneous Approach (ICD-10-PCS; 2019-07-20)
DX: T82.7XXA Infection and inflammatory reaction due to other cardiac and vascular devices, implants and grafts, initial encounter (principal); D68.59 Other primary thrombophilia; K91.2 Postsurgical malabsorption, not elsewhere classified; E46 Unspecified protein-calorie malnutrition; K31.84 Gastroparesis; B00.89 Other herpesviral infection; Y83.1 Surgical operation with implant of artificial internal device as the cause of abnormal reaction of the patient, or of later complication, without mention of misadventure at the time of the procedure; K92.1 Melena; Z98.84 Bariatric surgery status; Z90.49 Acquired absence of other specified parts of digestive tract; F32.9 Major depressive disorder, single episode, unspecified; F41.9 Anxiety disorder, unspecified; Z86.14 Personal history of Methicillin resistant Staphylococcus aureus infection; Z79.899 Other long term (current) drug therapy; B96.89 Other specified bacterial agents as the cause of diseases classified elsewhere; L03.113 Cellulitis of right upper limb

== ENCOUNTER → 2019-07-13 | Outpatient (REF) | payer BC, OTHER | LOC: M SFHCPLAZ 15:37 | PROVIDERS: ATTEND Internal Medicine Infectious Disease | DX: T80.212A Local infection due to central venous catheter, initial encounter (principal) ==

== ENCOUNTER → 2019-07-29 | Outpatient (REF) | payer OTHER ==
[~2019-07-29] MED LIST changes: +ACET-683 PO; +HEPA100I26 IV; +HYDR-3363 PO; +ZYVO1TAB PO
[2019-07-29 12:39] LABS: HEMATOCRIT 40.7 % (36.0-47.0); HEMOGLOBIN 12.7 g/dl (12.0-15.5); MEAN CORPUSCULAR HEMOGLOBIN 26.5 pg (27.0-33.0); MEAN CORPUSCULAR HGB CONC 31.2 g/dl (32.0-36.5); MEAN CORPUSCULAR VOLUME 84.8 fl (80.0-96.0); PLATELET COUNT, AUTOMATED 529 10^3/uL (150-450)
== END ==
LOC: M LABDRAWP 09:33
PROVIDERS: ATTEND Physician Assistant
DX: Z87.19 Personal history of other diseases of the digestive system (principal); Z98.84 Bariatric surgery status

== ENCOUNTER → 2019-07-29 | Outpatient (REF) | payer OTHER ==
[2019-07-29 11:51] LABS: BACTERIA, URINE AUTO 1+ (NEGATIVE); RBC, URINE AUTO 6 /HPF (0-3); SQUAMOUS EPITHELIAL CELL UR AU 27 /HPF (0-6); WBC, URINE AUTO 5 /HPF (0-3)
[2019-07-29 11:56] LABS: C REACTIVE PROTEIN QUANTITATIV < 0.30 MG/DL (0.00-0.30); IRON (FE) 34 UG/DL (50-170); TOTAL IRON BINDING CAPACITY 562 UG/DL (250-450)
[2019-07-29 12:12] LABS: ERYTHROCYTE SEDIMENTATION RATE 19 mm/hr (0-20)
[2019-07-29 12:38] LABS: ALBUMIN 4.6 GM/DL (3.2-5.2); ALT/SGPT 25 U/L (12-78); BILIRUBIN,TOTAL 0.5 MG/DL (0.2-1.0); BLOOD UREA NITROGEN 8 MG/DL (7-18); CARBON DIOXIDE LEVEL 23 MEQ/L (21-32); CHLORIDE LEVEL 106 MEQ/L (98-107); GLOMERULAR FILTRATION RATE > 60.0 (>58); GLUCOSE, FASTING 111 MG/DL (70-100); MAGNESIUM LEVEL 2.5 MG/DL (1.8-2.4); PHOSPHORUS LEVEL 3.9 MG/DL (2.5-4.9); POTASSIUM SERUM 4.4 MEQ/L (3.5-5.1); SODIUM LEVEL 139 MEQ/L (136-145); TOTAL PROTEIN 8.5 GM/DL (6.4-8.2); TRIGLYCERIDES LEVEL 146 MG/DL (<150)
== END ==
LOC: M SFHCPLAZ 08:16
PROVIDERS: ATTEND Family Medicine
DX: K92.2 Gastrointestinal hemorrhage, unspecified (principal); D50.0 Iron deficiency anemia secondary to blood loss (chronic); R31.0 Gross hematuria

== ENCOUNTER → 2019-08-04 | Outpatient (REF) | payer OTHER ==
[2019-08-04 12:59] LABS: ALBUMIN 4.1 GM/DL (3.2-5.2); ALT/SGPT 19 U/L (12-78); BILIRUBIN,TOTAL 0.5 MG/DL (0.2-1.0); BLOOD UREA NITROGEN 7 MG/DL (7-18); C REACTIVE PROTEIN QUANTITATIV < 0.30 MG/DL (0.00-0.30); CALCIUM LEVEL 9.4 MG/DL (8.5-10.1); CARBON DIOXIDE LEVEL 25 MEQ/L (21-32); CHLORIDE LEVEL 110 MEQ/L (98-107); CREATININE FOR GFR 0.69 MG/DL (0.55-1.30); GLOMERULAR FILTRATION RATE > 60.0 (>58); GLUCOSE, FASTING 93 MG/DL (70-100); MAGNESIUM LEVEL 2.4 MG/DL (1.8-2.4); POTASSIUM SERUM 3.9 MEQ/L (3.5-5.1); SODIUM LEVEL 140 MEQ/L (136-145); TOTAL PROTEIN 7.1 GM/DL (6.4-8.2)
[2019-08-04 13:03] LABS: BASO % 0.9 % (0.0-1.0); EOS # 0.2 10^3/uL (0.0-0.5); EOS % 3.4 % (0.0-3.0); HEMATOCRIT 37.4 % (36.0-47.0); HEMOGLOBIN 11.4 g/dl (12.0-15.5); LYMPH # 1.2 10^3/uL (1.5-5.0); MEAN CORPUSCULAR HEMOGLOBIN 26.4 pg (27.0-33.0); MEAN CORPUSCULAR HGB CONC 30.5 g/dl (32.0-36.5); MEAN CORPUSCULAR VOLUME 86.6 fl (80.0-96.0); MONO # 0.4 10^3/uL (0.0-0.8); MONO % 8.3 % (0.0-5.0); NEUTROPHILS # 2.7 10^3/uL (1.5-8.5); NEUTROPHILS % 60.2 % (36.0-66.0); PLATELET COUNT, AUTOMATED 348 10^3/uL (150-450); RED BLOOD COUNT 4.32 10^6/uL (4.00-5.40); WHITE BLOOD COUNT 4.4 10^3/uL (4.0-10.0)
== END ==
LOC: M SFHCPLAZ 09:40
PROVIDERS: ATTEND Internal Medicine Infectious Disease
DX: T80.212A Local infection due to central venous catheter, initial encounter (principal)

== ENCOUNTER → 2019-08-05 | Outpatient (CLI) | payer BC, OTHER ==
[~2019-08-05] MED LIST changes: +ISOVUE-300 61% 50ML VIAL (Q9967) As Ordered ONE; +LIDOCAINE 1% MDV 20ML VIAL As Ordered ONE; -OMEP40CA2 PO; +OMEP40CA97 PO
[2019-08-05 08:00] VITALS: BP 100/60
--- NOTE | 2019-08-05 14:13 | POST-OPPD ---
Postoperative Procedure Note Date Of Procedure: Aug 05, 2019 Time Of Procedure: 09:31 PREOPERATIVE DIAGNOSIS: malnourished. On TPN. heart flutters with catheter use. POSTOPERATIVE DIAGNOSIS: malnourished. On TPN. heart flutters with catheter use. FINDINGS: right IJ levine in good position PROCEDURE: levine retracted into SVC. Re sutured in place. flushed. working well. no bleeding. SURGEON: Patricia ESTIMATED BLOOD LOSS: < 5 ml COMPLICATIONS: none POSTOPERATIVE CONDITION: stable KARSTEN QUACH MD Aug 05, 2019 14:13
--- NOTE | 2019-08-05 14:21 | REP ---
IR fluoroscopy-guided Levine reposition. Clinical information: Malnourished. TPN dependent. Feels heart flutter with levine use. Physician: Dr. Gomez. Procedure: The patient was advised of the benefits, risks, and alternatives of the procedure and informed consent was obtained. A time-out was performed with verification of the patient's name, MRN, site of procedure and type of procedure to be performed. The patient was positioned in the supine position on the angiographic table. The site was prepped and draped in the usual sterile fashion. Moderate sedation was not required. The physician spent 30 minutes of continuous face to face time with the patient. A telegraph mechanic radiograph reveals a left-sided Levine catheter. The tip is at the cavoatrial junction. The sutures were removed. The Levine catheter was retracted under fluoroscopy guidance until the tip is in the distal SVC. The catheter was re sutured to the skin with 2-0 Prolene. A sterile dressing was then applied. The patient tolerated the procedure well and was returned to the PRU in stable condition. Estimated blood loss: <5 ml. Complications: None. Conclusion: 1. Successful repositioning of Levine catheter. 2. Patient to call IR if any other catheter related tissues . Thank you for this referral. Electronically Signed by Kisha Gomez MD 08/05/2019 02:19 P
== END ==
LOC: M IRPRO 06:42
PROVIDERS: ATTEND Radiology Diagnostic Radiology
DX: T82.524A Displacement of infusion catheter, initial encounter (principal); E46 Unspecified protein-calorie malnutrition; X58.XXXA Exposure to other specified factors, initial encounter; Y93.9 Activity, unspecified; Y92.9 Unspecified place or not applicable; Y99.9 Unspecified external cause status
CPT/HCPCS: 36597; 76000; Q9967

== ENCOUNTER → 2019-08-10 | Outpatient (REF) | payer OTHER ==
[~2019-08-10] MED LIST changes: -ISOVUE-300 61% 50ML VIAL (Q9967) As Ordered ONE; -LIDOCAINE 1% MDV 20ML VIAL As Ordered ONE
[2019-08-10 17:27] LABS: HEMATOCRIT 29.4 % (36.0-47.0); HEMOGLOBIN 8.8 g/dl (12.0-15.5); MEAN CORPUSCULAR HEMOGLOBIN 25.9 pg (27.0-33.0); MEAN CORPUSCULAR HGB CONC 29.9 g/dl (32.0-36.5); MEAN CORPUSCULAR VOLUME 86.5 fl (80.0-96.0); PLATELET COUNT, AUTOMATED 243 10^3/uL (150-450); WHITE BLOOD COUNT 5.8 10^3/uL (4.0-10.0)
[2019-08-10 17:46] LABS: ALBUMIN 3.2 GM/DL (3.2-5.2); ALT/SGPT 16 U/L (12-78); BILIRUBIN,TOTAL 0.6 MG/DL (0.2-1.0); BLOOD UREA NITROGEN 7 MG/DL (7-18); CALCIUM LEVEL 7.3 MG/DL (8.5-10.1); CARBON DIOXIDE LEVEL 22 MEQ/L (21-32); CHLORIDE LEVEL 114 MEQ/L (98-107); CREATININE FOR GFR 0.69 MG/DL (0.55-1.30); GLOMERULAR FILTRATION RATE > 60.0 (>58); GLUCOSE, FASTING 62 MG/DL (70-100); PHOSPHORUS LEVEL 4.6 MG/DL (2.5-4.9); POTASSIUM SERUM 3.6 MEQ/L (3.5-5.1); SODIUM LEVEL 143 MEQ/L (136-145); TOTAL PROTEIN 5.5 GM/DL (6.4-8.2)
== END ==
LOC: M LAB REF 15:23
PROVIDERS: ATTEND Physician Assistant
DX: K31.84 Gastroparesis (principal); Z98.84 Bariatric surgery status; Z79.899 Other long term (current) drug therapy

== ENCOUNTER → 2019-08-13 | Outpatient (REF) | payer OTHER ==
[2019-08-13 20:11] LABS: BASO % 0.5 % (0.0-1.0); EOS # 0.5 10^3/uL (0.0-0.5); EOS % 8.2 % (0.0-3.0); HEMATOCRIT 33.7 % (36.0-47.0); HEMOGLOBIN 10.4 g/dl (12.0-15.5); LYMPH # 1.7 10^3/uL (1.5-5.0); LYMPH % 28.7 % (24.0-44.0); MEAN CORPUSCULAR HEMOGLOBIN 26.5 pg (27.0-33.0); MEAN CORPUSCULAR HGB CONC 30.9 g/dl (32.0-36.5); MONO # 0.5 10^3/uL (0.0-0.8); MONO % 7.7 % (0.0-5.0); NEUTROPHILS # 3.3 10^3/uL (1.5-8.5); NEUTROPHILS % 54.7 % (36.0-66.0); PLATELET COUNT, AUTOMATED 251 10^3/uL (150-450); RED BLOOD COUNT 3.92 10^6/uL (4.00-5.40); WHITE BLOOD COUNT 6.1 10^3/uL (4.0-10.0)
[2019-08-13 20:35] LABS: ALBUMIN 3.7 GM/DL (3.2-5.2); ALT/SGPT 27 U/L (12-78); BILIRUBIN,TOTAL 0.4 MG/DL (0.2-1.0); BLOOD UREA NITROGEN 8 MG/DL (7-18); CALCIUM LEVEL 8.9 MG/DL (8.5-10.1); CARBON DIOXIDE LEVEL 24 MEQ/L (21-32); CHLORIDE LEVEL 106 MEQ/L (98-107); CREATININE FOR GFR 0.76 MG/DL (0.55-1.30); GLOMERULAR FILTRATION RATE > 60.0 (>58); GLUCOSE, FASTING 122 MG/DL (70-100); PHOSPHORUS LEVEL 4.4 MG/DL (2.5-4.9); POTASSIUM SERUM 4.2 MEQ/L (3.5-5.1); SODIUM LEVEL 139 MEQ/L (136-145); TOTAL PROTEIN 6.4 GM/DL (6.4-8.2)
== END ==
LOC: M LAB REF 11:27
PROVIDERS: ATTEND Internal Medicine Gastroenterology
DX: K31.84 Gastroparesis (principal)

== ENCOUNTER 2019-08-17 17:51 | Emergency (ER) | payer BC, OTHER ==
[~2019-08-17] VITALS: Ht 170.2 cm; Wt 67.7 kg
[2019-08-17 17:53] VITALS: BP 134/73
[2019-08-17 21:25] LABS: APPEARANCE, URINE CLOUDY (CLEAR); BACTERIA, URINE AUTO NEGATIVE (NEGATIVE); BILIRUBIN, URINE AUTO NEGATIVE (NEGATIVE); BLOOD, URINE BLOOD 3+ (NEGATIVE); COLOR, URINE YELLOW (YELLOW); GLUCOSE, URINE (UA) AUTO NEGATIVE (NEGATIVE); KETONE, URINE AUTO NEGATIVE (NEGATIVE); LEUKOCYTE ESTERASE, URINE AUTO 1+ (NEGATIVE); MUCUS, URINE MODERATE (NEGATIVE); NITRITE, URINE AUTO NEGATIVE (NEGATIVE); PROTEIN, URINE AUTO 1+ mg/dL (NEGATIVE); RBC, URINE AUTO TNTC /HPF (0-3); SQUAMOUS EPITHELIAL CELL UR AU 16 /HPF (0-6); WBC, URINE AUTO 24 /HPF (0-3)
--- NOTE | 2019-08-18 07:51 | REP ---
Clinical: Palpitations. Central line. . Comparison: 07/14/2019 . Technique: PA and lateral. Findings: Tunneled catheter with tip in the SVC. No pneumothorax. The mediastinum and cardiac silhouette are normal. The lung snell are clear and without acute consolidation, effusion, or pneumothorax. The skeletal structures are intact and normal. Impression: 1. No acute cardiopulmonary process. Electronically Signed by Michael James MD 08/18/2019 07:42 A
== END 2019-08-17 22:44 | disposition left against medical advice (07) ==
LOC: M ED 17:51
DX: T82.838A Hemorrhage due to vascular prosthetic devices, implants and grafts, initial encounter (principal); R50.9 Fever, unspecified; Y74.2 Prosthetic and other implants, materials and accessory general hospital and personal-use devices associated with adverse incidents; R11.0 Nausea; Z88.6 Allergy status to analgesic agent; Z88.2 Allergy status to sulfonamides; Z88.8 Allergy status to other drugs, medicaments and biological substances; Z88.1 Allergy status to other antibiotic agents; Z91.018 Allergy to other foods; Z79.899 Other long term (current) drug therapy

== ENCOUNTER → 2019-08-19 | Outpatient (CLI) | payer BC, OTHER ==
--- NOTE | 2019-09-02 01:02 | ECWPNPC ---
PATIENT NAME: NI RICHMOND : 1980 GENDER: FEMALE VISIT DATE: 08/19/2019 DISCHARGE DATE: 08/19/19 1215 VISIT LOCKED DATE TIME: PHYSICIAN: JA CANO RESOURCE: JA CANO REASON FOR APPOINTMENT 1. MEDS, DISCUSS MULTIPLE C/X AND N/S APPTS HISTORY OF PRESENT ILLNESS HISTORY OF PRESENT ILLNESS: HERE FOR F/U AND MEDICINE MANAGEMENT FOR CHRONIC ABDOMINAL PAIN WITH HX OF MULTIPLE COMPLICATIONS POST GASTRIC BYPASS SEVERAL YEARS AGO.SHE WILL BE HAVING BOWEL RESECTION AND J TUBE REVISION ON August.ACCOMPANIED IN EXAM ROOM WITH .SHE VOICES DESIRE TO BE OFF ALL PAIN MEDICATION BY OCTOBER 2019.DISCUSSED REFERRAL TO PALLIATIVE CARE.RATING PAIN VAS 6/10.CURRENTLY USING OXYCODONE 5MG 2 TAB Q6H PO.TAKES ALL NURISHMENT VIA TPN.MULTIPLE COMPLICATIONS WITH CENTRAL LINE. PAIN THE PATIENT DESCRIBES THE PAIN... FALL RISK SCREENING: SCREENING :NO FALLS REPORTED IN THE LAST YEAR CURRENT MEDICATIONS TAKING ZOFRAN ODT 8 MG TABLET DISPERSIBLE 1 TABLET ON THE TONGUE AND ALLOW TO DISSOLVE NEEDED INTRAVENOUSLY Q 6 HRS PRN NAUSEA TAKING PROMETHAZINE HCL 25 MG SUPPOSITORY 1 SUPPOSITORY NEEDED RECTAL EVERY 12 HRS NEEDED IF ZOFRAN IN-EFFECTIVE TAKING ACETAMINOPHEN 325 MG TABLET 1 TABLET NEEDED ORALLY EVERY 4 HRS TAKING GLUCAGON (RDNA) 1 MG KIT DIRECTED INJECTION TAKING LOVENOX 60 MG/0.6ML SOLUTION 60 MG SUBCUTANEOUS BID, NOTES: REFILLS THROUGH MAILORDER TAKING TPN ELECTROLYTES - SOLUTION DIRECTED INTRAVENOUS TAKING HYDROXYZINE HCL 25 MG TABLET 1 CAP ORALLY EVERY 6 HRS PRN TAKING HEPARIN LOCK FLUSH 100 UNIT/ML SOLUTION 5ML DIRECTED INTRAVENOUS PRN FOR AFTER IV INFUSION AND NEEDED TAKING SODIUM CHLORIDE FLUSH 0.9 % SOLUTION DIRECTED INTRAVENOUS INJECT 10 MLS INTO THE VEIN NEEDED( FOR BEFORE AND AFTER INFUSION PRN) TAKING MAY HAVE - - PLEASE DISPENSE NEBULIZER, MASK, AND TUBING USE PER MEDICATION INSTRUCTIONS TAKING SUCRALFATE 1 GM/10ML SUSPENSION 10 ML ON AN EMPTY STOMACH ORALLY THREE TIMES DAILY, NOTES: PLEASE CANCEL PRIOR RX FOR INCORRECT DISPENSE AMOUNT TAKING AMOXICILLIN 500 MG TABLET 4 TABLET ORALLY 30 MIN PRIOR TO DENTAL PROCEDURE TAKING OXYCODONE HCL 5 MG TABLET 2 TAB ORALLY EVERY 6 HRS MDD 8 TAKING FLUOXETINE HCL 20 MG CAPSULE 1 CAPSULE ORALLY ONCE A DAY, NOTES: PT TRANSITIONING FROM LIQUID TAKING AMBIEN 5 MG TABLET 1 TABLET AT BEDTIME ORALLY ONCE A DAY TAKING ZOFRAN 4 MG/2ML SOLUTION DIRECTED INTRAVENOUS STATES TAKES 8 MG IV DIRECTED NOT-TAKING CEFTRIAXONE SODIUM 2 GM SOLUTION RECONSTITUTED DIRECTED INJECTION DAILY NOT-TAKING LINEZOLID 600 MG TABLET TK 1 T PO BID WF ORAL NOT-TAKING ROCEPHIN 2 GM SOLUTION RECONSTITUTED DIRECTED INJECTION NOT-TAKING ZYVOX 600 MG TABLET 1 TABLET ORALLY EVERY 12 HRS MEDICATION LIST REVIEWED AND RECONCILED WITH THE PATIENT PAST MEDICAL HISTORY DEPRESSION/ANXIETY HYDRATION ISSUES HX OF MRSA BACK PROBLEM TP INDEPENDANT-HAS CENTRAL LINE CHRON'S ALLERGIES SULFA (FOR ALLERGY USE ONLY): ANAPHYLAXIS - ALLERGY NSAIDS: GI BLEED - CONTRAINDICATION LEVAQUIN: ANAPHYLAXIS - ALLERGY TOMATOES: ANAPHYLAXIS - ALLERGY SURGICAL HISTORY BACK SURGERY DR SU DECOMPRESSION SURGERY 08/2013 TONSILS GASTRIC BYPASS 2008 ENDOMETRIAL ABLATION HYSTERECTOMY HUBBARD CATHETER 05/21/2014 RIGHT LEG WOUND DRAINED-DESIREE 04/2017 LEFT SUBCLAVIAN PORT 10/2017 J-TUBE PLACEMENT AND REMOVAL G-TUBE PLACEMENT 11/2017 SUBCLAVIAN PORT REMOVE 04/2018 PICC LINE 06/2018 BOWEL RESECTION AUG-2018 FAMILY HISTORY FATHER: ALIVE 68 YRS MOTHER: ALIVE 67 YRS NO FAMILY HX OF ANY UROLOGICAL ISSUES. SOCIAL HISTORY GENERAL: TOBACCO USE ARE YOU A:NONSMOKER HIV / HEP-C SCREENING HIV TEST OFFERED TO PATIENT:YES DATE OFFERED:02/19/2019 TEST ACCEPTED:NO HEP-C TEST OFFERED TO PATIENT:YES DATE OFFERED:02/19/2019 TEST ACCEPTED:NO BROCHURE PROVIDED TO PATIENTNO OTHERS AT HOME: SPOUSE. EDUCATION LEVEL OF EDUCATION:FINISHED HIGH SCHOOL DIET: ALL NUTRITION THROUGH PICC LINE. LANGUAGE LANGUAGES SPOKEN:[place] DOMESTIC VIOLENCE DO YOU FEEL SAFE IN YOUR ENVIRONMENT?YES RECREATIONAL DRUG USE DRUG USE?NO EXERCISE: WALKS. LEARNING BARRIERS / SPECIAL NEEDS CHANGE FROM LAST VISIT?NO BARRIERS TO LEARNING?NO HEARING IMPAIRED?NO VISION IMPAIRED?NO COGNITIVELY IMPAIRED?NO READINESS TO LEARN?YES LEARNING PREFERENCES?NO LEARNING CAPABILITIES PRESENT?YES EMOTIONAL BARRIERS?NO SPECIAL DEVICES?NO UI ENGINEER NEEDED?NO LUNG CANCER SCREENING SMOKING STATUS:NON SMOKER PAIN CLINIC PFS, CLERGY, PUBLIC HEALTH REFERRALS PFS REFERRAL NEEDED?NO CLERGY REFERRAL NEEDED?NO PUBLIC HEALTH REFERRAL NEEDED?NO WAS THE PROVIDER NOTIFIED OF ANY PERTINENT INFO?NO HAS THE PATIENT BEEN EDUCATED REGARDING HIS/HER PLAN OF CARE?YES HAS THE PATIENT BEEN EDUCATED REGARDING PAIN, THE RISK FOR PAIN, THE IMPORTANCE OF EFFECTIVE PAIN MANAGEMENT, AND THE PAIN ASSESSMENT PROCESS?YES LATEX QUESTIONNAIRE LATEX ALLERGY : HAVE YOU EVER DEVELOPED ANY TYPE OF REACTION AFTER HANDLING LATEX PRODUCTS SUCH RUBBER GLOVES, CONDOMS, DIAPHRAGMS, BALLOONS, SOCKS, OR UNDERWEAR?NO LATEX ALLERGY : HAVE YOU EVER DEVELOPED ANY TYPE OF REACTION DURING OR AFTER DENTAL APPOINTMENT, VAGINAL/RECTAL EXAMINATION, SURGICAL PROCEDURE, OR ANY OTHER EXPOSURE?NO LATEX RISK : HAVE YOU EVER HAD ANY DIFFICULTY BREATHING OR HIVES AFTER EATING OR HANDLING ANY FRUITS, OR VEGETABLES; SUCH KIWI, BANANAS, STONE FRUITS, OR CHESTNUTSNO LATEX RISK : DO YOU HAVE A PREVIOUS PERSONAL HISTORY OF MORE THAN NINE SURGERIES, SPINA BIFIDA, OR REPEATED CATHERIZATIONS? YES LATEX RISK : ARE YOU FREQUENTLY EXPOSED TO LATEX PRODUCTS IN YOUR OCCUPATION?NO DATE ASKED : 08/08/2019 CAFFEINE CAFFEINE USE?NO ADVANCE DIRECTIVE ADVANCE DIRECTIVE DISCUSSED WITH PATIENT:YES HCP - GAR[facility] RICHMOND [facility] [id number] NONE MARITAL STATUS: . ALCOHOL SCREENING DID YOU HAVE A DRINK CONTAINING ALCOHOL IN THE PAST YEAR?NO POINTS0 INTERPRETATIONNEGATIVE OCCUPATION: UNEMPLOYED. SEXUAL HX HAD SEX IN THE LAST 12 MONTHS (VAGINAL, ORAL, OR ANAL)?YES WITHMEN ONLY PREVENTION STRATEGIES DISCUSSED:OTHER USE PROTECTION?NO HAVE YOU EVER HAD AN STD?NO REVIEWED WITH PATIENT 11/13/18 1417 JSREVIEWED WITH PT 01/23/19 0867 BV. HOSPITALIZATION/MAJOR DIAGNOSTIC PROCEDURE RELATED TO SURGERY G TUBE INFECTION 7 DAYS 10- BLOOD TRANSFUSION 10/2018 [facility] ED- ABDOMINAL PAIN. 12/10/2018 SEPTIC KIDNEY INFECTION 01/11-01/18 HUBBARD INFECTION 05/08 HUBBARD INFECTION 06/2019 REVIEW OF SYSTEMS REVIEWED BY: PROVIDER: JA DALEY . CONSTITUTIONAL: ANY CHANGE IN YOUR MEDICAL CONDITION? NO . CHILLS NO . FEVER NO . INFECTION: DO YOU HAVE NEW INFECTIONS? YES - HAD A CENTRAL LINE INFECTION; HAS FINISHED ANTIBIOTIC THERAPY . DO YOU HAVE HISTORY OF MRSA? YES . MUSCULOSKELETAL: ANY NEW PATTERNS OF PAIN OR NUMBNESS? NO . GASTROENTEROLOGY: ANY NEW CHANGE IN BOWEL CONTROL? NO . GENITOURINARY: ANY NEW CHANGE IN BLADDER CONTROL? NO . IS THERE A CHANCE YOU COULD BE ? NO . HEMATOLOGY/LYMPH: DO YOU TAKE ANY BLOOD THINNERS? (FOR EXAMPLE- COUMADIN, PLAVIX, AGGRENOX, PLATEL, PRADAXA, OR XARELTO) YES - LOVENOX . WHEN WAS YOUR LAST DOSE? DATE: TIME: . NEUROLOGY: HAVE YOU FALLEN IN THE PAST 12 MONTHS? NO . ANY NEW EXTREMITY NUMBNESS OR WEAKNESS? NO . CARDIOLOGY: DO YOU HAVE A PACEMAKER OR DEFIBRILLATOR? NO . RESPIRATORY: HAVE YOU BEEN SICK IN THE PAST WEEK? NO . FEVER NO . FLU LIKE SYMPTOMS? NO . COUGH NO . INTEGUMENTARY: DO YOU HAVE ANY RASHES OR OPEN SORES? NO . ALLERGIC/IMMUNO: ARE YOU ALLERGIC TO IV DYE? NO . ANY NEW ALLERGIES? NO . PSYCHIATRIC: DO YOU HAVE THOUGHTS OF HURTING YOURSELF OR SOMEONE ELSE? NO . ARE YOU ABUSED, NEGLECTED, OR IN AN UNSAFE ENVIRONMENT? NO . ENDOCRINOLOGY: ARE YOU DIABETIC? NO . OTHER: DO YOU NEED ANY PRESCRIPTIONS? YES - OXYCODONE . IF YES, PLEASE LIST: ____ . ANY NEW PROBLEMS WITH YOUR MEDICATIONS? NO . WHEN DID YOU LAST EAT? ____ . WHEN DID YOU LAST DRINK? ____ . WHAT DID YOU LAST DRINK? ____ . NAME OF PERSON DRIVING YOU HOME? ____ . DO YOU HAVE ANY OTHER QUESTIONS OR CONCERNS NO . VITAL SIGNS WT 152.6 LBS, HT 66 IN, BMI 24.63 INDEX, BP 121/65 MM HG, HR 80 /MIN, RR 18 /MIN, TEMP 97.6 F, OXYGEN SAT % 100%, NA INITIALS AW 1116, REVIEWED BY: VALENTIN. EXAMINATION GENERAL EXAMINATION: GENERALAWAKE,ALERT ,PLEAASANT . PSYCHAFFECT NORMAL . LUNGS:LUNG GARCIA ARE CLEAR TO AUSCULTATION BILATERALLY. GOOD MOVEMENT OF AIR . HEART:S1, S2 IN A REGULAR RATE AND RHYTHM. NO SIGNIFICANT MURMURS, RUBS OR GALLOPS NOTED . ASSESSMENTS CHRONIC PAIN SYNDROME - G89.4 (PRIMARY) TREATMENT CHRONIC PAIN SYNDROME REFILL OXYCODONE HCL TABLET, 5 MG, 2 TAB, ORALLY, EVERY 6 HRS MDD 8, 30 DAYS, 240, REFILLS 0 NOTES: ISTOP REGISTRY REVIEWED AND DEMONSTRATES COMPLLIANCE. URINE TOX TODAY, RISKS OF NARCOTIC/OPIOD MEDICATIONS INCLUDES BUT IS NOT LIMITED TO RISK OF DEPENDANCE/DEVELOPMENT OF ADDICTION, MOOD DISTURBANCE AND DEPRESSION, OSTEOPOROSIS, HORMONAL AND LABIDAL CHANGES, RESPIRATORY DEPRESSION AND . PATIENT IS ADVISED NOT TO DRIVE OR DRINK ALCOHOL WHILE ON THESE MEDICATIONS. REFERRAL TO:[facility] CAREUNKNOWJorge REASON:HX OF MULTIPLE MED ISSUES SECONDARY TO COMPLICATIONS S/P GASTRIC BYPASS SEVERAL YEARS AGO-CHRONIC OPIOD MED MGMNT PROCEDURE CODES FA211 ESTABILISHED PATIENT [facility] FACILITY CHARGE DISPOSITION & COMMUNICATION FOLLOW UP REFER TO LA PUENTE -NO F/U ELECTRONICALLY SIGNED BY EDI DOSHI ON 09/01/2019 AT 01:16 PM EST DISCLAIMER : THIS IS A VISIT SUMMARY EXTRACTED FROM THE [employer] CHART. IT IS NOT A COPY OF THE [employer] PROGRESS NOTE. HAILEY
== END ==
LOC: M PAIN 10:45
PROVIDERS: ATTEND Nurse Practitioner Family
DX: G89.4 Chronic pain syndrome (principal); Z79.891 Long term (current) use of opiate analgesic; Z79.899 Other long term (current) drug therapy; Z88.2 Allergy status to sulfonamides; Z88.8 Allergy status to other drugs, medicaments and biological substances; Z91.018 Allergy to other foods

== ENCOUNTER → 2019-08-20 | Outpatient (REF) | payer OTHER ==
[2019-08-20 12:17] LABS: BASO % 0.6 % (0.0-1.0); EOS # 0.4 10^3/uL (0.0-0.5); EOS % 8.2 % (0.0-3.0); HEMATOCRIT 29.3 % (36.0-47.0); HEMOGLOBIN 8.9 g/dl (12.0-15.5); LYMPH # 1.3 10^3/uL (1.5-5.0); LYMPH % 25.4 % (24.0-44.0); MEAN CORPUSCULAR HGB CONC 30.4 g/dl (32.0-36.5); MEAN CORPUSCULAR VOLUME 85.7 fl (80.0-96.0); MONO # 0.5 10^3/uL (0.0-0.8); MONO % 9.4 % (0.0-5.0); NEUTROPHILS # 2.9 10^3/uL (1.5-8.5); PLATELET COUNT, AUTOMATED 242 10^3/uL (150-450); RED BLOOD COUNT 3.42 10^6/uL (4.00-5.40); WHITE BLOOD COUNT 5.1 10^3/uL (4.0-10.0)
[2019-08-20 12:22] LABS: ALBUMIN 3.3 GM/DL (3.2-5.2); ALT/SGPT 18 U/L (12-78); BILIRUBIN,TOTAL 0.4 MG/DL (0.2-1.0); BLOOD UREA NITROGEN 8 MG/DL (7-18); CALCIUM LEVEL 8.4 MG/DL (8.5-10.1); CARBON DIOXIDE LEVEL 26 MEQ/L (21-32); CHLORIDE LEVEL 110 MEQ/L (98-107); CREATININE FOR GFR 0.74 MG/DL (0.55-1.30); GLOMERULAR FILTRATION RATE > 60.0 (>58); GLUCOSE, FASTING 50 MG/DL (70-100); MAGNESIUM LEVEL 1.9 MG/DL (1.8-2.4); PHOSPHORUS LEVEL 4.9 MG/DL (2.5-4.9); POTASSIUM SERUM 3.8 MEQ/L (3.5-5.1); SODIUM LEVEL 142 MEQ/L (136-145)
== END ==
LOC: M LAB REF 11:31
PROVIDERS: ATTEND Internal Medicine Gastroenterology
DX: K31.84 Gastroparesis (principal)

== ENCOUNTER → 2019-08-23 | Outpatient (REF) | payer OTHER ==
[2019-08-23 06:33] LABS: HEMATOCRIT 29.2 % (36.0-47.0); HEMOGLOBIN 8.8 g/dl (12.0-15.5); MEAN CORPUSCULAR HEMOGLOBIN 25.7 pg (27.0-33.0); MEAN CORPUSCULAR HGB CONC 30.1 g/dl (32.0-36.5); MEAN CORPUSCULAR VOLUME 85.4 fl (80.0-96.0); PLATELET COUNT, AUTOMATED 272 10^3/uL (150-450); RED BLOOD COUNT 3.42 10^6/uL (4.00-5.40)
[2019-08-23 06:52] LABS: ALBUMIN 3.3 GM/DL (3.2-5.2); ALT/SGPT 59 U/L (12-78); BILIRUBIN,TOTAL 0.5 MG/DL (0.2-1.0); BLOOD UREA NITROGEN 5 MG/DL (7-18); CALCIUM LEVEL 8.1 MG/DL (8.5-10.1); CARBON DIOXIDE LEVEL 28 MEQ/L (21-32); CHLORIDE LEVEL 106 MEQ/L (98-107); CREATININE FOR GFR 0.72 MG/DL (0.55-1.30); GLOMERULAR FILTRATION RATE > 60.0 (>58); GLUCOSE, FASTING 78 MG/DL (70-100); PHOSPHORUS LEVEL 4.3 MG/DL (2.5-4.9); POTASSIUM SERUM 4.8 MEQ/L (3.5-5.1); SODIUM LEVEL 139 MEQ/L (136-145); TOTAL PROTEIN 5.9 GM/DL (6.4-8.2); TRIGLYCERIDES LEVEL 266 MG/DL (<150)
== END ==
LOC: M LAB REF 06:16
PROVIDERS: ATTEND Physician Assistant
DX: K31.84 Gastroparesis (principal); Z98.84 Bariatric surgery status; Z79.899 Other long term (current) drug therapy

== ENCOUNTER → 2019-10-15 | Outpatient (REF) | payer OTHER ==
[~2019-10-15] MED LIST changes: +FLUO20CA20 PO; -FLUO20CA8 PO; +OXYC20TA2 PO
[2019-10-15 15:54] LABS: BASO % 0.2 % (0.0-1.0); EOS # 0.2 10^3/uL (0.0-0.5); EOS % 3.6 % (0.0-3.0); LYMPH # 1.1 10^3/uL (1.5-5.0); LYMPH % 22.7 % (24.0-44.0); MEAN CORPUSCULAR HEMOGLOBIN 23.8 pg (27.0-33.0); MEAN CORPUSCULAR HGB CONC 29.1 g/dl (32.0-36.5); MEAN CORPUSCULAR VOLUME 81.8 fl (80.0-96.0); MONO # 0.5 10^3/uL (0.0-0.8); MONO % 9.8 % (0.0-5.0); NEUTROPHILS # 3.1 10^3/uL (1.5-8.5); NEUTROPHILS % 62.5 % (36.0-66.0); PLATELET COUNT, AUTOMATED 218 10^3/uL (150-450); RED BLOOD COUNT 2.69 10^6/uL (4.00-5.40)
[2019-10-15 16:21] LABS: ALBUMIN 2.4 GM/DL (3.2-5.2); ALT/SGPT 29 U/L (12-78); BILIRUBIN,TOTAL 0.4 MG/DL (0.2-1.0); BLOOD UREA NITROGEN 3 MG/DL (7-18); CALCIUM LEVEL 7.6 MG/DL (8.5-10.1); CARBON DIOXIDE LEVEL 29 MEQ/L (21-32); CHLORIDE LEVEL 106 MEQ/L (98-107); CREATININE FOR GFR 0.61 MG/DL (0.55-1.30); GLOMERULAR FILTRATION RATE > 60.0 (>58); GLUCOSE, FASTING 117 MG/DL (70-100); MAGNESIUM LEVEL 2.1 MG/DL (1.8-2.4); PHOSPHORUS LEVEL 3.3 MG/DL (2.5-4.9); POTASSIUM SERUM 4.2 MEQ/L (3.5-5.1); SODIUM LEVEL 140 MEQ/L (136-145); TOTAL PROTEIN 5.2 GM/DL (6.4-8.2)
[2019-10-15 17:29] LABS: HEMOGLOBIN 6.4 g/dl (12.0-15.5)
== END ==
LOC: M LAB REF 15:38
PROVIDERS: ATTEND Internal Medicine Hepatology
DX: K31.84 Gastroparesis (principal)

== ENCOUNTER → 2019-10-16 | Outpatient (REF) | payer OTHER ==
[2019-10-16 14:15] LABS: HEMATOCRIT 26.1 % (36.0-47.0); HEMOGLOBIN 7.5 g/dl (12.0-15.5); MEAN CORPUSCULAR HEMOGLOBIN 22.9 pg (27.0-33.0); MEAN CORPUSCULAR HGB CONC 28.7 g/dl (32.0-36.5); MEAN CORPUSCULAR VOLUME 79.8 fl (80.0-96.0); PLATELET COUNT, AUTOMATED 263 10^3/uL (150-450); RED BLOOD COUNT 3.27 10^6/uL (4.00-5.40)
[2019-10-16 14:47] LABS: BLOOD UREA NITROGEN 3 MG/DL (7-18); CALCIUM LEVEL 8.6 MG/DL (8.5-10.1); CARBON DIOXIDE LEVEL 24 MEQ/L (21-32); CHLORIDE LEVEL 104 MEQ/L (98-107); CREATININE FOR GFR 0.66 MG/DL (0.55-1.30); GLOMERULAR FILTRATION RATE > 60.0 (>58); GLUCOSE, FASTING 95 MG/DL (70-100); POTASSIUM SERUM 4.5 MEQ/L (3.5-5.1); SODIUM LEVEL 139 MEQ/L (136-145)
== END ==
LOC: M SFHCPLAZ 11:47
PROVIDERS: ATTEND Nurse Practitioner Adult Health
DX: R00.0 Tachycardia, unspecified (principal); D50.0 Iron deficiency anemia secondary to blood loss (chronic)

== ENCOUNTER → 2019-10-21 | Outpatient (CLI) | payer BC, OTHER | LOC: M LAB 10:22 | PROVIDERS: ATTEND Nurse Practitioner Adult Health | DX: R00.0 Tachycardia, unspecified (principal); D50.0 Iron deficiency anemia secondary to blood loss (chronic) ==

== ENCOUNTER 2019-10-22 07:23 | Outpatient (CLI) | payer BC, OTHER ==
[2019-10-22] VITALS (10 sets, daily range): BP systolic 90–118; BP diastolic 53–72
[~2019-10-22] VITALS: Ht 170.2 cm; Wt 67.7 kg
[~2019-10-22 07:23] MED LIST changes: +ACETAMINOPHEN 325 MG/10.15 ML UDC JT SCH; -OXYC20TA2 PO; +diphenhydrAMINE 12.5MG/5ML ELIXIR UDC JT SCH
[2019-10-22] MEDS ORDERED: OXYC20TA2 PO (07:45)
[2019-10-22] MEDS ORDERED: diphenhydrAMINE INJ 50MG/ML VIAL (J1200) IV ONE (08:15)
[2019-10-22] MEDS ORDERED: SODIUM CHLORIDE 0.9% INJ 10 ML SYR IV PRN (17:00)
[2019-10-23] MEDS ORDERED: SODIUM CHLORIDE 0.9% INJ 10 ML SYR IV SCH (09:00)
== END 2019-10-22 13:45 | disposition home or self-care (01) ==
LOC: M INFU 07:23
PROVIDERS: ATTEND Nurse Practitioner Adult Health
DX: D64.9 Anemia, unspecified (principal); Z88.1 Allergy status to other antibiotic agents; Z88.2 Allergy status to sulfonamides; Z88.5 Allergy status to narcotic agent; Z88.8 Allergy status to other drugs, medicaments and biological substances; Z91.018 Allergy to other foods
CPT/HCPCS: 36430; J1200; P9016

== ENCOUNTER 2019-10-25 07:09 | Emergency (ER) | payer BC, OTHER ==
[~2019-10-25] VITALS: Ht 170.2 cm; Wt 65.9 kg
[2019-10-25 07:09] VITALS: BP 134/75
[~2019-10-25 07:09] MED LIST changes: -ACETAMINOPHEN 325 MG/10.15 ML UDC JT SCH; -LORA0.5T11 PO; +LORA0.5T5 PO; -LORA1TAB12 PO; +LORA1TAB4 PO; +ONDA-83 PO; -ONDA4TAB5 PO; +OXYC20TA2 PO; +SUCR1ORA PO; -SUCR1SUS PO; -diphenhydrAMINE 12.5MG/5ML ELIXIR UDC JT SCH
[2019-10-25] MEDS ORDERED: diphenhydrAMINE INJ 50MG/ML VIAL (J1200) IV STA (07:31)
[2019-10-25] MEDS ORDERED: NS 1,000 ML IV ONE (07:45)
[2019-10-25 08:17] LABS: BASO # 0.1 10^3/uL (0.0-0.2); EOS # 0.1 10^3/uL (0.0-0.5); EOS % 2.4 % (0.0-3.0); HEMOGLOBIN 11.2 g/dl (12.0-15.5); LYMPH # 1.2 10^3/uL (1.5-5.0); LYMPH % 24.4 % (24.0-44.0); MEAN CORPUSCULAR HEMOGLOBIN 23.4 pg (27.0-33.0); MEAN CORPUSCULAR HGB CONC 29.5 g/dl (32.0-36.5); MEAN CORPUSCULAR VOLUME 79.3 fl (80.0-96.0); MONO # 0.3 10^3/uL (0.0-0.8); MONO % 6.5 % (0.0-5.0); NEUTROPHILS # 3.2 10^3/uL (1.5-8.5); NEUTROPHILS % 65.1 % (36.0-66.0); PLATELET COUNT, AUTOMATED 649 10^3/uL (150-450); RED BLOOD COUNT 4.79 10^6/uL (4.00-5.40)
--- NOTE | 2019-10-25 08:23 | REP ---
PORTABLE CHEST X-RAY: Single view. HISTORY: Dyspnea and cough. COMPARISON CHEST X-RAY: August 17, 2019. FINDINGS: There is a left internal jugular transvenous tunnel catheter with its tip in the expected location of the superior vena cava unchanged. There is a linear metallic density projecting in the epigastrium, consistent with an overlying objects. The lungs are well inflated and clear. The pleural angles are sharp. Cardiomediastinal silhouette is unremarkable pulmonary vasculature is not increased. IMPRESSION: Central venous catheter. Otherwise no acute disease. Metallic object projecting over the epigastric region. Electronically Signed by Adrian Valdez MD 10/25/2019 09:11 A
[2019-10-25] MEDS ORDERED: AMBI5TAB PO (08:28)
[2019-10-25 08:29] LABS: INR 1.05; PROTHROMBIN TIME 13.4 SECONDS (11.8-14.0)
[2019-10-25 08:30] LABS: PARTIAL THROMBOPLASTIN TIME 66.9 SECONDS (25.0-38.4)
[2019-10-25] MEDS ORDERED: DOXY25SU (08:32)
[2019-10-25] MEDS ORDERED: CREO3000 (08:32)
[2019-10-25] MEDS ORDERED: LOPE2CAP (08:32)
[2019-10-25] MEDS ORDERED: MISO200T56 (08:32)
[2019-10-25 08:44] LABS: ERYTHROCYTE SEDIMENTATION RATE 41 mm/hr (0-20)
[2019-10-25 08:45] LABS: ALBUMIN 3.5 GM/DL (3.2-5.2); ALT/SGPT 15 U/L (12-78); BILIRUBIN,DIRECT 0.2 MG/DL (0.0-0.2); BILIRUBIN,TOTAL 0.6 MG/DL (0.2-1.0); BLOOD UREA NITROGEN 15 MG/DL (7-18); C REACTIVE PROTEIN QUANTITATIV < 0.30 MG/DL (0.00-0.30); CALCIUM LEVEL 9.2 MG/DL (8.5-10.1); CARBON DIOXIDE LEVEL 25 MEQ/L (21-32); CHLORIDE LEVEL 107 MEQ/L (98-107); CPK CREATINE PHOSPHOKINASE 19 U/L (26-192); CREATININE FOR GFR 0.76 MG/DL (0.55-1.30); GLOMERULAR FILTRATION RATE > 60.0 (>58); GLUCOSE, FASTING 104 MG/DL (70-100); LDH LACTATE DEHYDROGENASE 147 U/L (84-246); POTASSIUM SERUM 4.2 MEQ/L (3.5-5.1); SODIUM LEVEL 139 MEQ/L (136-145); TOTAL PROTEIN 7.3 GM/DL (6.4-8.2)
[2019-10-25] MEDS ORDERED: MORPHINE 2 MG/ML 1ML VIAL (J2270) As Ordered ONE (08:57)
[2019-10-25] MEDS ORDERED: MORPHINE 2 MG/ML 1ML VIAL (J2270) IV PRN (09:00)
[2019-10-25] MEDS ORDERED: ONDANSETRON 4MG/2ML VIAL (J2405) IV ONE (09:00)
== END 2019-10-25 11:14 | disposition left against medical advice (07) ==
LOC: M ED 07:09
DX: L29.9 Pruritus, unspecified (principal); R50.9 Fever, unspecified; M79.10 Myalgia, unspecified site; K50.90 Crohn's disease, unspecified, without complications; F32.9 Major depressive disorder, single episode, unspecified; Z98.84 Bariatric surgery status; Z90.49 Acquired absence of other specified parts of digestive tract; Z93.4 Other artificial openings of gastrointestinal tract status; Z88.8 Allergy status to other drugs, medicaments and biological substances; Z88.2 Allergy status to sulfonamides; Z88.1 Allergy status to other antibiotic agents; Z88.5 Allergy status to narcotic agent; Z91.018 Allergy to other foods; Z79.899 Other long term (current) drug therapy; Z79.2 Long term (current) use of antibiotics

== ENCOUNTER → 2019-11-10 | Outpatient (CLI) | payer BC, OTHER ==
[~2019-11-10] MED LIST changes: +CREO3000; +DOXY25SU; +LOPE2CAP
[2019-11-10 10:58] LABS: BASO # 0.1 10^3/uL (0.0-0.2); BASO % 0.7 % (0.0-1.0); EOS # 0.2 10^3/uL (0.0-0.5); EOS % 2.8 % (0.0-3.0); HEMATOCRIT 40.3 % (36.0-47.0); HEMOGLOBIN 12.1 g/dl (12.0-15.5); LYMPH # 1.5 10^3/uL (1.5-5.0); LYMPH % 21.9 % (24.0-44.0); MEAN CORPUSCULAR HEMOGLOBIN 23.8 pg (27.0-33.0); MEAN CORPUSCULAR VOLUME 79.2 fl (80.0-96.0); MONO # 0.3 10^3/uL (0.0-0.8); MONO % 4.6 % (0.0-5.0); NEUTROPHILS # 4.7 10^3/uL (1.5-8.5); NEUTROPHILS % 69.7 % (36.0-66.0); PLATELET COUNT, AUTOMATED 362 10^3/uL (150-450); RED BLOOD COUNT 5.09 10^6/uL (4.00-5.40); WHITE BLOOD COUNT 6.7 10^3/uL (4.0-10.0)
[2019-11-10 11:59] LABS: ALBUMIN 4.2 GM/DL (3.2-5.2); ALT/SGPT 48 U/L (12-78); BLOOD UREA NITROGEN 7 MG/DL (7-18); CALCIUM LEVEL 9.3 MG/DL (8.5-10.1); CARBON DIOXIDE LEVEL 25 MEQ/L (21-32); CHLORIDE LEVEL 105 MEQ/L (98-107); CREATININE FOR GFR 0.75 MG/DL (0.55-1.30); GLOMERULAR FILTRATION RATE > 60.0 (>58); GLUCOSE, FASTING 85 MG/DL (70-100); MAGNESIUM LEVEL 2.3 MG/DL (1.8-2.4); PHOSPHORUS LEVEL 4.4 MG/DL (2.5-4.9); POTASSIUM SERUM 4.9 MEQ/L (3.5-5.1); SODIUM LEVEL 139 MEQ/L (136-145); TOTAL PROTEIN 8.1 GM/DL (6.4-8.2)
== END ==
LOC: M LAB 10:24
PROVIDERS: ATTEND Internal Medicine Hepatology
DX: K31.84 Gastroparesis (principal)

== ENCOUNTER → 2019-11-11 | Outpatient (CLI) | payer BC, OTHER ==
[~2019-11-11] MED LIST changes: +ALTEPLASE 2 MG/2 ML VIAL (J2997 PER 1MG) As Ordered ONE; +ISOVUE-300 61% 50ML VIAL (Q9967) As Ordered ONE; +LIDOCAINE 1% MDV 20ML VIAL As Ordered ONE
[2019-11-11 15:30] VITALS: BP 101/66
--- NOTE | 2019-11-26 10:37 | POST-OPPD ---
Postoperative Procedure Note Date Of Procedure: Nov 11, 2019 Time Of Procedure: 10:17 Diagnosis. Malnourished. Gal[place] won't aspirate. FINDINGS: same. PROCEDURE:STACIE Carrasco accessed the existing Gal[place] catheter under my instruction. One port would not aspirate. The other port aspirates and flushes. The nurse was instructed to administer 2 mg of TPA into the port which does not aspirate. After a dwell time of the 30 minutes, the nurse aspirated the TPA. After this, both ports reportedly aspirated and flushed freely. The patient was discharged in stable condition. COMPLICATIONS: none KARSTEN QUACH MD Nov 26, 2019 10:37
== END ==
LOC: M IRPRO 12:48
PROVIDERS: ATTEND Radiology Diagnostic Radiology
DX: Z45.2 Encounter for adjustment and management of vascular access device (principal)
CPT/HCPCS: 36593; J1642; J2997

== ENCOUNTER → 2019-11-16 | Outpatient (REF) | payer OTHER ==
[~2019-11-16] MED LIST changes: -ALTEPLASE 2 MG/2 ML VIAL (J2997 PER 1MG) As Ordered ONE; -ISOVUE-300 61% 50ML VIAL (Q9967) As Ordered ONE; -LIDOCAINE 1% MDV 20ML VIAL As Ordered ONE
[2019-11-16 11:58] LABS: BASO % 0.5 % (0.0-1.0); EOS # 0.5 10^3/uL (0.0-0.5); HEMATOCRIT 30.2 % (36.0-47.0); LYMPH # 1.4 10^3/uL (1.5-5.0); LYMPH % 23.5 % (24.0-44.0); MEAN CORPUSCULAR HGB CONC 29.8 g/dl (32.0-36.5); MEAN CORPUSCULAR VOLUME 80.5 fl (80.0-96.0); MONO # 0.7 10^3/uL (0.0-0.8); MONO % 12.9 % (0.0-5.0); NEUTROPHILS # 3.1 10^3/uL (1.5-8.5); NEUTROPHILS % 53.6 % (36.0-66.0); PLATELET COUNT, AUTOMATED 273 10^3/uL (150-450); RED BLOOD COUNT 3.75 10^6/uL (4.00-5.40); WHITE BLOOD COUNT 5.8 10^3/uL (4.0-10.0)
[2019-11-16 12:37] LABS: ALBUMIN 3.2 GM/DL (3.2-5.2); ALT/SGPT 133 U/L (12-78); BILIRUBIN,TOTAL 0.6 MG/DL (0.2-1.0); BLOOD UREA NITROGEN 4 MG/DL (7-18); CARBON DIOXIDE LEVEL 32 MEQ/L (21-32); CHLORIDE LEVEL 101 MEQ/L (98-107); CREATININE FOR GFR 0.68 MG/DL (0.55-1.30); GLOMERULAR FILTRATION RATE > 60.0 (>58); GLUCOSE, FASTING 88 MG/DL (70-100); PHOSPHORUS LEVEL 3.8 MG/DL (2.5-4.9); POTASSIUM SERUM 4.3 MEQ/L (3.5-5.1); SODIUM LEVEL 139 MEQ/L (136-145); TOTAL PROTEIN 6.3 GM/DL (6.4-8.2)
== END ==
LOC: M SHH 11:21
PROVIDERS: ATTEND Internal Medicine Hepatology
DX: K31.84 Gastroparesis (principal)

== ENCOUNTER → 2019-11-22 | Outpatient (REF) | payer OTHER ==
[2019-11-22 14:27] LABS: BASO % 0.4 % (0.0-1.0); EOS # 0.3 10^3/uL (0.0-0.5); EOS % 5.1 % (0.0-3.0); HEMATOCRIT 32.3 % (36.0-47.0); HEMOGLOBIN 9.6 g/dl (12.0-15.5); LYMPH # 1.3 10^3/uL (1.5-5.0); LYMPH % 18.9 % (24.0-44.0); MEAN CORPUSCULAR HEMOGLOBIN 23.4 pg (27.0-33.0); MEAN CORPUSCULAR HGB CONC 29.7 g/dl (32.0-36.5); MEAN CORPUSCULAR VOLUME 78.6 fl (80.0-96.0); MONO # 0.6 10^3/uL (0.0-0.8); MONO % 8.4 % (0.0-5.0); NEUTROPHILS # 4.5 10^3/uL (1.5-8.5); NEUTROPHILS % 66.8 % (36.0-66.0); PLATELET COUNT, AUTOMATED 318 10^3/uL (150-450); RED BLOOD COUNT 4.11 10^6/uL (4.00-5.40); WHITE BLOOD COUNT 6.7 10^3/uL (4.0-10.0)
[2019-11-22 14:36] LABS: ALBUMIN 3.4 GM/DL (3.2-5.2); ALT/SGPT 28 U/L (12-78); BILIRUBIN,TOTAL 0.4 MG/DL (0.2-1.0); BLOOD UREA NITROGEN 11 MG/DL (7-18); CALCIUM LEVEL 8.6 MG/DL (8.5-10.1); CARBON DIOXIDE LEVEL 26 MEQ/L (21-32); CHLORIDE LEVEL 108 MEQ/L (98-107); CREATININE FOR GFR 0.78 MG/DL (0.55-1.30); GLOMERULAR FILTRATION RATE > 60.0 (>58); GLUCOSE, FASTING 130 MG/DL (70-100); MAGNESIUM LEVEL 2.1 MG/DL (1.8-2.4); PHOSPHORUS LEVEL 3.9 MG/DL (2.5-4.9); POTASSIUM SERUM 3.6 MEQ/L (3.5-5.1); PREALBUMIN 25.3 MG/DL (20.0-40.0); SODIUM LEVEL 141 MEQ/L (136-145); TOTAL PROTEIN 6.6 GM/DL (6.4-8.2); TRIGLYCERIDES LEVEL 135 MG/DL (<150)
== END ==
LOC: M SHH 14:10
PROVIDERS: ATTEND Surgery
DX: Z00.00 Encounter for general adult medical examination without abnormal findings (principal)

== ENCOUNTER → 2019-11-24 | Outpatient (REF) | payer OTHER ==
[2019-11-24 18:14] LABS: PERCENT SATURATION 5.8 % (13.2-45.0)
[2019-11-24 18:31] LABS: HEMATOCRIT 30.7 % (36.0-47.0); HEMOGLOBIN 9.2 g/dl (12.0-15.5); MEAN CORPUSCULAR HEMOGLOBIN 23.7 pg (27.0-33.0); MEAN CORPUSCULAR VOLUME 79.1 fl (80.0-96.0); PLATELET COUNT, AUTOMATED 293 10^3/uL (150-450); RED BLOOD COUNT 3.88 10^6/uL (4.00-5.40); WHITE BLOOD COUNT 4.8 10^3/uL (4.0-10.0)
== END ==
LOC: M SFHCPLAZ 17:03
PROVIDERS: ATTEND Family Medicine
DX: D50.0 Iron deficiency anemia secondary to blood loss (chronic) (principal)

== ENCOUNTER → 2019-11-29 | Outpatient (REF) | payer OTHER ==
[~2019-11-29] MED LIST changes: -MORP1SOL3 PO; +MORP1SOL4 PO
[2019-11-29 19:12] LABS: BASO # 0.1 10^3/uL (0.0-0.2); BASO % 0.5 % (0.0-1.0); EOS # 0.6 10^3/uL (0.0-0.5); EOS % 6.2 % (0.0-3.0); HEMATOCRIT 34.8 % (36.0-47.0); HEMOGLOBIN 10.3 g/dl (12.0-15.5); LYMPH # 1.9 10^3/uL (1.5-5.0); MEAN CORPUSCULAR HEMOGLOBIN 23.8 pg (27.0-33.0); MEAN CORPUSCULAR HGB CONC 29.6 g/dl (32.0-36.5); MEAN CORPUSCULAR VOLUME 80.4 fl (80.0-96.0); MONO # 0.6 10^3/uL (0.0-0.8); NEUTROPHILS # 6.2 10^3/uL (1.5-8.5); PLATELET COUNT, AUTOMATED 379 10^3/uL (150-450); RED BLOOD COUNT 4.33 10^6/uL (4.00-5.40); WHITE BLOOD COUNT 9.2 10^3/uL (4.0-10.0)
[2019-11-29 19:50] LABS: ALBUMIN 3.6 GM/DL (3.2-5.2); ALT/SGPT 22 U/L (12-78); BILIRUBIN,TOTAL 0.4 MG/DL (0.2-1.0); BLOOD UREA NITROGEN 6 MG/DL (7-18); CALCIUM LEVEL 9.1 MG/DL (8.5-10.1); CARBON DIOXIDE LEVEL 31 MEQ/L (21-32); CHLORIDE LEVEL 102 MEQ/L (98-107); CREATININE FOR GFR 0.85 MG/DL (0.55-1.30); GLOMERULAR FILTRATION RATE > 60.0 (>58); GLUCOSE, FASTING 110 MG/DL (70-100); MAGNESIUM LEVEL 2.1 MG/DL (1.8-2.4); PHOSPHORUS LEVEL 4.1 MG/DL (2.5-4.9); POTASSIUM SERUM 4.1 MEQ/L (3.5-5.1); PREALBUMIN 39.3 MG/DL (20.0-40.0); SODIUM LEVEL 138 MEQ/L (136-145); TOTAL PROTEIN 6.8 GM/DL (6.4-8.2); TRIGLYCERIDES LEVEL 429 MG/DL (<150)
== END ==
LOC: M LAB REF 18:55
PROVIDERS: ATTEND Surgery
DX: Z00.00 Encounter for general adult medical examination without abnormal findings (principal)

== ENCOUNTER 2019-12-01 09:46 | Outpatient (CLI) | payer BC, OTHER ==
[~2019-12-01] VITALS: Ht 170.2 cm; Wt 65.9 kg
[2019-12-01 10:00] VITALS: BP 109/70
[2019-12-01] MEDS ORDERED: IRON SUCROSE IV ONE (11:00)
[2019-12-01] MEDS ORDERED: diphenhydrAMINE INJ 50MG/ML VIAL (J1200) IV ONE (11:00)
[2019-12-01] MEDS ORDERED: SODIUM CHLORIDE 0.9% INJ 10 ML SYR IV PRN (11:00)
[2019-12-01] MEDS ORDERED: ONDANSETRON 4MG/2ML VIAL (J2405) IV ONE (11:00)
[2019-12-01] MEDS ORDERED: IRON SUCROSE 25 MG in NS 25 ML IV ONE (11:00)
[2019-12-01] MEDS ORDERED: SODIUM CHLORIDE 0.9% INJ 10 ML SYR IV ONE (11:00)
[2019-12-01] MEDS ORDERED: NS IV ONE (11:00)
[2019-12-01 13:45] VITALS: BP 118/66
== END 2019-12-01 13:45 | disposition home or self-care (01) ==
LOC: M INFU 09:46
PROVIDERS: ATTEND Family Medicine
DX: D64.9 Anemia, unspecified (principal); Z88.1 Allergy status to other antibiotic agents; Z88.2 Allergy status to sulfonamides; Z88.5 Allergy status to narcotic agent; Z88.8 Allergy status to other drugs, medicaments and biological substances; Z91.018 Allergy to other foods
CPT/HCPCS: 96365; 96375; J1200; J1642; J1756; J2405

== ENCOUNTER → 2019-12-06 | Outpatient (REF) | payer OTHER ==
[2019-12-06 15:50] LABS: BASO % 0.6 % (0.0-1.0); EOS # 0.6 10^3/uL (0.0-0.5); EOS % 13.2 % (0.0-3.0); HEMATOCRIT 31.9 % (36.0-47.0); HEMOGLOBIN 9.6 g/dl (12.0-15.5); LYMPH # 1.4 10^3/uL (1.5-5.0); LYMPH % 29.4 % (24.0-44.0); MEAN CORPUSCULAR HEMOGLOBIN 24.2 pg (27.0-33.0); MEAN CORPUSCULAR HGB CONC 30.1 g/dl (32.0-36.5); MEAN CORPUSCULAR VOLUME 80.6 fl (80.0-96.0); MONO # 0.5 10^3/uL (0.0-0.8); MONO % 9.7 % (0.0-5.0); NEUTROPHILS # 2.3 10^3/uL (1.5-8.5); NEUTROPHILS % 46.9 % (36.0-66.0); PLATELET COUNT, AUTOMATED 247 10^3/uL (150-450); RED BLOOD COUNT 3.96 10^6/uL (4.00-5.40); WHITE BLOOD COUNT 4.9 10^3/uL (4.0-10.0)
[2019-12-06 16:05] LABS: ALBUMIN 3.4 GM/DL (3.2-5.2); ALT/SGPT 55 U/L (12-78); BILIRUBIN,TOTAL 0.5 MG/DL (0.2-1.0); BLOOD UREA NITROGEN 5 MG/DL (7-18); CARBON DIOXIDE LEVEL 29 MEQ/L (21-32); CHLORIDE LEVEL 105 MEQ/L (98-107); CREATININE FOR GFR 0.66 MG/DL (0.55-1.30); GLOMERULAR FILTRATION RATE > 60.0 (>58); GLUCOSE, FASTING 108 MG/DL (70-100); MAGNESIUM LEVEL 2.1 MG/DL (1.8-2.4); POTASSIUM SERUM 3.8 MEQ/L (3.5-5.1); SODIUM LEVEL 139 MEQ/L (136-145); TOTAL PROTEIN 6.9 GM/DL (6.4-8.2); TRIGLYCERIDES LEVEL 197 MG/DL (<150)
== END ==
LOC: M LAB REF 10:22
PROVIDERS: ATTEND Surgery
DX: Z00.00 Encounter for general adult medical examination without abnormal findings (principal)

== ENCOUNTER 2019-12-08 09:53 | Outpatient (CLI) | payer BC, OTHER ==
[~2019-12-08] VITALS: Ht 170.2 cm; Wt 65.9 kg
[2019-12-08 09:55] VITALS: BP 126/73
[2019-12-08] MEDS ORDERED: ONDANSETRON 4MG/2ML VIAL (J2405) IV ONE (10:15)
[2019-12-08] MEDS ORDERED: diphenhydrAMINE INJ 50MG/ML VIAL (J1200) IV ONE (10:15)
[2019-12-08] MEDS ORDERED: SODIUM CHLORIDE 0.9% INJ 10 ML SYR IV PRN (10:15)
[2019-12-08 11:00] VITALS: BP 150/68
[2019-12-08] MEDS ORDERED: NS IV ONE (11:00)
[2019-12-08] MEDS ORDERED: IRON SUCROSE IV ONE (11:00)
[2019-12-08 13:00] VITALS: BP 117/58
[2019-12-08 13:35] VITALS: BP 107/57
[2019-12-08 14:00] VITALS: BP 104/59
[2019-12-09] MEDS ORDERED: SODIUM CHLORIDE 0.9% INJ 10 ML SYR IV SCH (09:00)
== END 2019-12-08 14:00 | disposition home or self-care (01) ==
LOC: M INFU 09:53
PROVIDERS: ATTEND Family Medicine
DX: D50.9 Iron deficiency anemia, unspecified (principal); Z88.1 Allergy status to other antibiotic agents; Z88.2 Allergy status to sulfonamides; Z88.5 Allergy status to narcotic agent; Z88.6 Allergy status to analgesic agent; Z88.8 Allergy status to other drugs, medicaments and biological substances; Z91.018 Allergy to other foods
CPT/HCPCS: 96365; 96366; 96375; J1200; J1642; J1756; J2405

== ENCOUNTER → 2019-12-12 | Outpatient (REF) | payer BC, OTHER ==
[2019-12-12 18:03] LABS: BASO % 0.2 % (0.0-1.0); EOS # 0.8 10^3/uL (0.0-0.5); EOS % 9.2 % (0.0-3.0); HEMATOCRIT 32.6 % (36.0-47.0); HEMOGLOBIN 9.7 g/dl (12.0-15.5); LYMPH # 1.1 10^3/uL (1.5-5.0); LYMPH % 11.6 % (24.0-44.0); MEAN CORPUSCULAR HEMOGLOBIN 24.1 pg (27.0-33.0); MEAN CORPUSCULAR HGB CONC 29.8 g/dl (32.0-36.5); MEAN CORPUSCULAR VOLUME 80.9 fl (80.0-96.0); MONO # 0.6 10^3/uL (0.0-0.8); MONO % 6.9 % (0.0-5.0); NEUTROPHILS # 6.6 10^3/uL (1.5-8.5); NEUTROPHILS % 71.7 % (36.0-66.0); PLATELET COUNT, AUTOMATED 268 10^3/uL (150-450); RED BLOOD COUNT 4.03 10^6/uL (4.00-5.40); WHITE BLOOD COUNT 9.2 10^3/uL (4.0-10.0)
[2019-12-12 18:12] LABS: ALBUMIN 3.2 GM/DL (3.2-5.2); ALT/SGPT 39 U/L (12-78); BILIRUBIN,TOTAL 0.5 MG/DL (0.2-1.0); BLOOD UREA NITROGEN 5 MG/DL (7-18); CALCIUM LEVEL 8.8 MG/DL (8.5-10.1); CARBON DIOXIDE LEVEL 31 MEQ/L (21-32); CHLORIDE LEVEL 99 MEQ/L (98-107); CREATININE FOR GFR 0.62 MG/DL (0.55-1.30); GLOMERULAR FILTRATION RATE > 60.0 (>58); GLUCOSE, FASTING 106 MG/DL (70-100); MAGNESIUM LEVEL 1.9 MG/DL (1.8-2.4); POTASSIUM SERUM 4.3 MEQ/L (3.5-5.1); PREALBUMIN 16.9 MG/DL (20.0-40.0); SODIUM LEVEL 134 MEQ/L (136-145); TOTAL PROTEIN 6.5 GM/DL (6.4-8.2)
[2019-12-14 14:05] LABS: TRIGLYCERIDES LEVEL 129 MG/DL (<150)
== END ==
LOC: M SHH 17:34
DX: Z00.00 Encounter for general adult medical examination without abnormal findings (principal)

== ENCOUNTER 2019-12-15 10:23 | Outpatient (CLI) | payer BC, OTHER ==
[~2019-12-15] VITALS: Ht 170.2 cm; Wt 65.9 kg
[2019-12-15 10:30] VITALS: BP 127/62
[2019-12-15] MEDS ORDERED: IRON SUCROSE 250 MG in NS 250 ML IV ONE (10:30)
[2019-12-15] MEDS ORDERED: diphenhydrAMINE INJ 50MG/ML VIAL (J1200) IV ONE (10:45)
[2019-12-15] MEDS ORDERED: SODIUM CHLORIDE 0.9% INJ 10 ML SYR IV PRN (10:45)
[2019-12-15] MEDS ORDERED: ONDANSETRON 4MG/2ML VIAL (J2405) IV ONE (10:45)
[2019-12-15 11:25] VITALS: BP 99/55
[2019-12-15 14:05] VITALS: BP 118/58
[2019-12-16] MEDS ORDERED: SODIUM CHLORIDE 0.9% INJ 10 ML SYR IV SCH (09:00)
== END 2019-12-15 14:30 | disposition home or self-care (01) ==
LOC: M INFU 10:23
PROVIDERS: ATTEND Family Medicine
DX: D50.9 Iron deficiency anemia, unspecified (principal); Z88.0 Allergy status to penicillin; Z88.1 Allergy status to other antibiotic agents; Z88.5 Allergy status to narcotic agent; Z91.018 Allergy to other foods
CPT/HCPCS: 96365; 96366; 96375; J1200; J1642; J1756; J2405

== ENCOUNTER → 2019-12-20 | Outpatient (REF) | payer BC, OTHER ==
[2019-12-20 15:10] LABS: BASO % 0.5 % (0.0-1.0); EOS # 0.4 10^3/uL (0.0-0.5); EOS % 4.4 % (0.0-3.0); HEMATOCRIT 32.8 % (36.0-47.0); LYMPH # 1.1 10^3/uL (1.5-5.0); LYMPH % 13.5 % (24.0-44.0); MEAN CORPUSCULAR HEMOGLOBIN 25.3 pg (27.0-33.0); MEAN CORPUSCULAR HGB CONC 30.5 g/dl (32.0-36.5); MEAN CORPUSCULAR VOLUME 82.8 fl (80.0-96.0); MONO # 0.3 10^3/uL (0.0-0.8); MONO % 4.3 % (0.0-5.0); NEUTROPHILS # 6.1 10^3/uL (1.5-8.5); NEUTROPHILS % 76.7 % (36.0-66.0); PLATELET COUNT, AUTOMATED 337 10^3/uL (150-450); RED BLOOD COUNT 3.96 10^6/uL (4.00-5.40)
[2019-12-20 15:19] LABS: ALBUMIN 3.2 GM/DL (3.2-5.2); ALT/SGPT 16 U/L (12-78); BILIRUBIN,TOTAL 0.5 MG/DL (0.2-1.0); BLOOD UREA NITROGEN 4 MG/DL (7-18); CALCIUM LEVEL 8.8 MG/DL (8.5-10.1); CARBON DIOXIDE LEVEL 28 MEQ/L (21-32); CHLORIDE LEVEL 103 MEQ/L (98-107); CREATININE FOR GFR 0.64 MG/DL (0.55-1.30); GLOMERULAR FILTRATION RATE > 60.0 (>58); GLUCOSE, FASTING 101 MG/DL (70-100); MAGNESIUM LEVEL 2.2 MG/DL (1.8-2.4); PHOSPHORUS LEVEL 4.7 MG/DL (2.5-4.9); POTASSIUM SERUM 3.9 MEQ/L (3.5-5.1); PREALBUMIN 24.1 MG/DL (20.0-40.0); SODIUM LEVEL 138 MEQ/L (136-145); TOTAL PROTEIN 6.7 GM/DL (6.4-8.2); TRIGLYCERIDES LEVEL 200 MG/DL (<150)
== END ==
LOC: M LAB REF 14:34
PROVIDERS: ATTEND Surgery
DX: Z00.00 Encounter for general adult medical examination without abnormal findings (principal)

== ENCOUNTER → 2019-12-27 | Outpatient (REF) | payer BC, OTHER ==
[2019-12-27 11:03] LABS: BASO # 0.1 10^3/uL (0.0-0.2); BASO % 0.7 % (0.0-1.0); EOS # 0.2 10^3/uL (0.0-0.5); EOS % 2.4 % (0.0-3.0); HEMATOCRIT 33.8 % (36.0-47.0); HEMOGLOBIN 10.2 g/dl (12.0-15.5); LYMPH # 1.3 10^3/uL (1.5-5.0); LYMPH % 18.7 % (24.0-44.0); MEAN CORPUSCULAR HEMOGLOBIN 24.8 pg (27.0-33.0); MEAN CORPUSCULAR HGB CONC 30.2 g/dl (32.0-36.5); MONO # 0.4 10^3/uL (0.0-0.8); NEUTROPHILS % 71.9 % (36.0-66.0); PLATELET COUNT, AUTOMATED 293 10^3/uL (150-450); RED BLOOD COUNT 4.12 10^6/uL (4.00-5.40)
[2019-12-27 11:08] LABS: ALBUMIN 3.2 GM/DL (3.2-5.2); ALT/SGPT 11 U/L (12-78); BILIRUBIN,TOTAL 0.6 MG/DL (0.2-1.0); BLOOD UREA NITROGEN 6 MG/DL (7-18); CALCIUM LEVEL 8.7 MG/DL (8.5-10.1); CARBON DIOXIDE LEVEL 28 MEQ/L (21-32); CHLORIDE LEVEL 105 MEQ/L (98-107); CREATININE FOR GFR 0.61 MG/DL (0.55-1.30); GLOMERULAR FILTRATION RATE > 60.0 (>58); GLUCOSE, FASTING 99 MG/DL (70-100); MAGNESIUM LEVEL 2.3 MG/DL (1.8-2.4); PHOSPHORUS LEVEL 4.1 MG/DL (2.5-4.9); POTASSIUM SERUM 4.3 MEQ/L (3.5-5.1); PREALBUMIN 25.5 MG/DL (20.0-40.0); SODIUM LEVEL 139 MEQ/L (136-145); TOTAL PROTEIN 6.5 GM/DL (6.4-8.2)
== END ==
LOC: M LAB REF 10:44
PROVIDERS: ATTEND Surgery
DX: Z00.00 Encounter for general adult medical examination without abnormal findings (principal)

== ENCOUNTER → 2020-01-02 | Outpatient (REF) | payer BC, OTHER ==
[~2020-01-02] MED LIST changes: +METH5TA; +MORP20SO3; +PANT40IN4; +[UNRECOGNIZED DRUG - CODE]; +[UNRECOGNIZED DRUG - CODE]
[2020-01-03 00:05] LABS: BASO % 0.3 % (0.0-1.0); EOS # 0.6 10^3/uL (0.0-0.5); EOS % 6.6 % (0.0-3.0); HEMOGLOBIN 9.3 g/dl (12.0-15.5); LYMPH # 0.8 10^3/uL (1.5-5.0); LYMPH % 9.3 % (24.0-44.0); MEAN CORPUSCULAR HEMOGLOBIN 25.3 pg (27.0-33.0); MEAN CORPUSCULAR VOLUME 84.2 fl (80.0-96.0); MONO # 0.8 10^3/uL (0.0-0.8); MONO % 8.8 % (0.0-5.0); NEUTROPHILS # 6.8 10^3/uL (1.5-8.5); NEUTROPHILS % 74.6 % (36.0-66.0); PLATELET COUNT, AUTOMATED 258 10^3/uL (150-450); RED BLOOD COUNT 3.68 10^6/uL (4.00-5.40); WHITE BLOOD COUNT 9.1 10^3/uL (4.0-10.0)
[2020-01-03 00:55] LABS: ALT/SGPT 43 U/L (12-78); BILIRUBIN,TOTAL 0.6 MG/DL (0.2-1.0); BLOOD UREA NITROGEN 3 MG/DL (7-18); CALCIUM LEVEL 7.6 MG/DL (8.5-10.1); CARBON DIOXIDE LEVEL 27 MEQ/L (21-32); CHLORIDE LEVEL 107 MEQ/L (98-107); CREATININE FOR GFR 0.63 MG/DL (0.55-1.30); GLOMERULAR FILTRATION RATE > 60.0 (>58); GLUCOSE, FASTING 90 MG/DL (70-100); MAGNESIUM LEVEL 1.8 MG/DL (1.8-2.4); PHOSPHORUS LEVEL 3.5 MG/DL (2.5-4.9); POTASSIUM SERUM 3.7 MEQ/L (3.5-5.1); PREALBUMIN 17.3 MG/DL (20.0-40.0); SODIUM LEVEL 140 MEQ/L (136-145); TOTAL PROTEIN 5.9 GM/DL (6.4-8.2); TRIGLYCERIDES LEVEL 132 MG/DL (<150)
== END ==
LOC: M LAB REF 23:45
PROVIDERS: ATTEND Surgery
DX: Z00.00 Encounter for general adult medical examination without abnormal findings (principal)

== ENCOUNTER 2020-01-03 19:09 | Emergency (ER) | payer BC, OTHER ==
[~2020-01-03] VITALS: Ht 170.2 cm; Wt 68.2 kg
[~2020-01-03 19:09] MED LIST changes: -METH5TA; -MORP20SO3; -PANT40IN4; -[UNRECOGNIZED DRUG - CODE]; -[UNRECOGNIZED DRUG - CODE]
[2020-01-03] MEDS ORDERED: MORP20SO3 (19:24)
[2020-01-03] MEDS ORDERED: [UNRECOGNIZED DRUG - CODE] (19:24)
[2020-01-03] MEDS ORDERED: [UNRECOGNIZED DRUG - CODE] (19:24)
[2020-01-03] MEDS ORDERED: METH5TA (19:24)
[2020-01-03] MEDS ORDERED: PANT40IN4 (19:24)
[2020-01-03 21:27] LABS: BASO % 0.2 % (0.0-1.0); EOS # 0.3 10^3/uL (0.0-0.5); EOS % 3.2 % (0.0-3.0); HEMATOCRIT 31.7 % (36.0-47.0); HEMOGLOBIN 9.7 g/dl (12.0-15.5); LYMPH # 0.5 10^3/uL (1.5-5.0); LYMPH % 5.1 % (24.0-44.0); MEAN CORPUSCULAR HEMOGLOBIN 25.2 pg (27.0-33.0); MEAN CORPUSCULAR HGB CONC 30.6 g/dl (32.0-36.5); MEAN CORPUSCULAR VOLUME 82.3 fl (80.0-96.0); MONO # 0.6 10^3/uL (0.0-0.8); NEUTROPHILS # 7.4 10^3/uL (1.5-8.5); NEUTROPHILS % 83.8 % (36.0-66.0); PLATELET COUNT, AUTOMATED 118 10^3/uL (150-450); RED BLOOD COUNT 3.85 10^6/uL (4.00-5.40); WHITE BLOOD COUNT 8.9 10^3/uL (4.0-10.0)
[2020-01-03] MEDS ORDERED: ISOVUE-370 76% 100ML VIAL (Q9967) As Ordered ONE (21:43)
--- NOTE | 2020-01-03 22:49 | REPVR ---
PROCEDURE INFORMATION: Exam: CT Abdomen And Pelvis With Contrast Exam date and time: 01/03/2020 9:59 PM Age: 39 years old Clinical indication: Condition or disease; Non-vascular catheter/shunt placement or management; Additional info: Evaluate j tube placement TECHNIQUE: Imaging protocol: Computed tomography of the abdomen and pelvis with intravenous contrast. Radiation optimization: All CT scans at this facility use at least one of these dose optimization techniques: automated exposure control; mA and/or kV adjustment per patient size (includes targeted exams where dose is matched to clinical indication); or iterative reconstruction. Contrast material: ISOVUE 370; Contrast volume: 100 ml; Contrast route: IV; COMPARISON: CT ABD/PEL W/IV ORAL CONTRAS 07/30/2018 8:58 PM FINDINGS: Tubes, catheters and devices: There is a drainage catheter in the left rectus abdominus muscle. There is a balloon tip deep to the rectus abdominus projecting into the mesenteric fat. There is some thickening at of the rectus abdominus muscle and also some swelling along the tract of the tube. There are a few bubbles of air around the balloon. No large abscess cavity is identified at this time. Lungs: Clear appearing lung bases. Heart: Normal sized heart and no pericardial effusion. Liver: Normal appearing liver. Gallbladder and bile ducts: Normal common bile duct. Pancreas: Normal pancreas. Spleen: There is mild Hepato- splenomegaly. Adrenals: Normal adrenal glands. Kidneys and ureters: There is enhancement of both kidneys. There is no evidence of hydronephrosis. Stomach and bowel: There are surgical clips along the stomach consistent with gastric bypass. There are surgical clips at a loop of bowel in the lower abdomen from previous bypass surgery. Appendix: The cecum is in the right pelvis and there is no evidence of inflammation or changes of appendicitis. Intraperitoneal space: There is no evidence of pneumoperitoneum. There is no evidence of free fluid in the abdomen or pelvis. Vasculature: There is opacification of the aorta. There is opacification of the SMV and the SMA. Lymph nodes: Unremarkable. No enlarged lymph nodes. Bladder: There is mild distention of the urinary bladder. Reproductive: Patient is post hysterectomy. Bones/joints: There is a screw and plate device lower lumbar spine that appears intact. IMPRESSION: Left-sided drainage catheter with a balloon tip. This traverses the anterior rectus abdominus muscle with the tip and balloon in the mesenteric fat. No evidence of residual abscess but continued swelling. Electronically signed by: Guido Rowland On 01/03/2020 22:48:38 PM
[2020-01-03 23:23] VITALS: BP 136/60
[2020-01-03] MEDS ORDERED: SODIUM CHLORIDE 0.9% INJ 10 ML SYR IV ONE (23:45)
[2020-01-04] MEDS ORDERED: SODIUM CHLORIDE 0.9% INJ 10 ML SYR IV SCH ×2 (09:00)
--- NOTE | 2020-01-04 11:36 | ED PDOC ---
Post-Departure Follow-Up susan marte faxed formal report of ct abd/p for fu Geovanna Benjamin MD Jan 04, 2020 11:35
== END 2020-01-04 00:04 | disposition home or self-care (01) ==
LOC: M ED 20:15
DX: T82.9XXA Unspecified complication of cardiac and vascular prosthetic device, implant and graft, initial encounter (principal); T85.848A Pain due to other internal prosthetic devices, implants and grafts, initial encounter; K31.84 Gastroparesis; D53.0 Protein deficiency anemia; Z90.49 Acquired absence of other specified parts of digestive tract; Z98.84 Bariatric surgery status; Z79.899 Other long term (current) drug therapy; Z88.6 Allergy status to analgesic agent; Z88.2 Allergy status to sulfonamides; Z88.5 Allergy status to narcotic agent; Z88.8 Allergy status to other drugs, medicaments and biological substances; Z91.018 Allergy to other foods
CPT/HCPCS: 36415; 74177; 80047; 83605; 85025; 87040; 87070; 87077; 87186; 87205; 99284; J1642; Q9967

== ENCOUNTER 2020-01-04 16:00 | Outpatient (CLI) | payer BC, OTHER ==
[~2020-01-04 16:00] MED LIST changes: +SODIUM CHLORIDE 0.9% INJ 10 ML SYR IV PRN
[2020-01-05] MEDS ORDERED: SODIUM CHLORIDE 0.9% INJ 10 ML SYR IV SCH (09:00)
== END 2020-01-04 16:30 | disposition home or self-care (01) ==
LOC: M INFU 16:00
PROVIDERS: ATTEND Family Medicine
DX: D50.9 Iron deficiency anemia, unspecified (principal); Z88.0 Allergy status to penicillin; Z88.1 Allergy status to other antibiotic agents; Z88.5 Allergy status to narcotic agent; Z91.018 Allergy to other foods

== ENCOUNTER → 2020-01-04 | Outpatient (REF) | payer OTHER ==
[~2020-01-04] MED LIST changes: +METH5TA; +MORP20SO3; +PANT40IN4; +[UNRECOGNIZED DRUG - CODE]; +[UNRECOGNIZED DRUG - CODE]
== END ==
LOC: M SFHCPLAZ 14:46
PROVIDERS: ATTEND Family Medicine
DX: R78.81 Bacteremia (principal)

== ENCOUNTER → 2020-01-04 | Outpatient (CLI) | payer BC, OTHER ==
--- NOTE | 2020-01-04 16:53 | REP ---
Chest x-ray: Two views. History: Fever. Comparison chest x-ray: October 25, 2019. Findings: The lungs are symmetrically aerated and clear. Pleural angles are sharp. Heart size is normal. An [id number] catheter is noted in place via the left side its tip in the expected location of the superior vena cava. No bony abnormality is seen. There are clips in the upper abdomen bilaterally. Impression: [id number] catheter. No active disease. Electronically Signed by Adrian Valdez MD 01/04/2020 04:45 P
== END ==
LOC: M LAB 15:11
PROVIDERS: ATTEND Family Medicine
DX: R78.81 Bacteremia (principal)

== ENCOUNTER → 2020-01-08 | Outpatient (CLI) | payer BC, OTHER ==
[~2020-01-08] MED LIST changes: +LIDOCAINE 1% MDV 20ML VIAL As Ordered ONE; -SODIUM CHLORIDE 0.9% INJ 10 ML SYR IV PRN
[2020-01-08 09:56] VITALS: BP 109/53
--- NOTE | 2020-01-08 10:26 | POST-OPPD ---
Postoperative Procedure Note Date Of Procedure: Jan 08, 2020 Time Of Procedure: 10:23 PREOPERATIVE DIAGNOSIS: infected levine catheter POSTOPERATIVE DIAGNOSIS: same FINDINGS: left side levine PROCEDURE: the left chest site was prepped and dressed in the appropriate sterile fashion. 1 % lidocaine was used to anesthetize the site. The cuff was dissected out using blunt dissection. The catheter was removed in it's entirety and sent for culture. Pressure held hemostasis achieved and a sterile dressing was applied to the site. SURGEON: priscila ANESTHESIA: local SPECIMENS: catheter tip sent ESTIMATED BLOOD LOSS: < 5 ml COMPLICATIONS: none POSTOPERATIVE CONDITION: stable This is entire procedure report. KARSTEN QUACH MD Jan 08, 2020 10:26
--- NOTE | 2020-01-08 14:12 | REP ---
Procedure: PICC line insertion with Amol The procedure was performed under the direct supervision of Dr. Hinton. The risks and benefits of the procedure were explained to the patient and informed consent was obtained. The brachial vein was localized using ultrasound guidance. The skin was prepped and draped in a sterile fashion. 1% lidocaine was used as a local anesthetic. Using ultrasound guidance the brachial vein was cannulated and a 0.018 guidewire was inserted and advanced to the SVC using fluoroscopic guidance. The needle was removed and a 5.5 [place] dilator and peel-away sheath was inserted over the guide wire. A 5.5 [place] dual lumen catheter was cut to length of 43 cm. The dilator was removed and the catheter was inserted over the guide wire with the tip ending in the SVC. The peel-away sheath was removed and the catheter was flushed with heparinized saline as per Hospital protocol. The catheter was affixed to the skin and a sterile dressing was applied. The patient tolerated the procedure well and there were no immediate complications. 0.2 minutes of fluoro time was utilized for this procedure. Electronically Signed by BREE Valdez 01/08/2020 01:18 P Electronically Signed by Fredrick Hinton MD 01/08/2020 02:04 P
== END ==
LOC: M IRPRO 08:48
PROVIDERS: ATTEND Family Medicine
DX: R78.81 Bacteremia (principal)
CPT/HCPCS: 36573; 87071; 87075; 87186; 87205; C1751; J1642; J1644

== ENCOUNTER → 2020-01-10 | Outpatient (REF) | payer BC, OTHER ==
[~2020-01-10] MED LIST changes: -LIDOCAINE 1% MDV 20ML VIAL As Ordered ONE
[2020-01-10 19:06] LABS: BASO % 0.4 % (0.0-1.0); EOS # 0.6 10^3/uL (0.0-0.5); LYMPH # 1.6 10^3/uL (1.5-5.0); LYMPH % 28.4 % (24.0-44.0); MEAN CORPUSCULAR HEMOGLOBIN 25.2 pg (27.0-33.0); MEAN CORPUSCULAR HGB CONC 30.3 g/dl (32.0-36.5); MEAN CORPUSCULAR VOLUME 83.1 fl (80.0-96.0); MONO # 0.3 10^3/uL (0.0-0.8); MONO % 4.9 % (0.0-5.0); NEUTROPHILS # 3.1 10^3/uL (1.5-8.5); NEUTROPHILS % 55.9 % (36.0-66.0); PLATELET COUNT, AUTOMATED 392 10^3/uL (150-450); RED BLOOD COUNT 3.97 10^6/uL (4.00-5.40); WHITE BLOOD COUNT 5.5 10^3/uL (4.0-10.0)
[2020-01-10 19:34] LABS: ALBUMIN 3.3 GM/DL (3.2-5.2); ALT/SGPT 16 U/L (12-78); BILIRUBIN,TOTAL 0.2 MG/DL (0.2-1.0); BLOOD UREA NITROGEN 8 MG/DL (7-18); CALCIUM LEVEL 8.7 MG/DL (8.5-10.1); CARBON DIOXIDE LEVEL 29 MEQ/L (21-32); CHLORIDE LEVEL 105 MEQ/L (98-107); CREATININE FOR GFR 0.68 MG/DL (0.55-1.30); GLOMERULAR FILTRATION RATE > 60.0 (>58); GLUCOSE, FASTING 86 MG/DL (70-100); MAGNESIUM LEVEL 2.2 MG/DL (1.8-2.4); PHOSPHORUS LEVEL 4.2 MG/DL (2.5-4.9); POTASSIUM SERUM 4.6 MEQ/L (3.5-5.1); PREALBUMIN 27.6 MG/DL (20.0-40.0); SODIUM LEVEL 137 MEQ/L (136-145); TOTAL PROTEIN 6.8 GM/DL (6.4-8.2); TRIGLYCERIDES LEVEL 284 MG/DL (<150)
== END ==
LOC: M SHH 18:50
PROVIDERS: ATTEND Surgery
DX: Z79.899 Other long term (current) drug therapy (principal)

== ENCOUNTER → 2020-01-17 | Outpatient (REF) | payer OTHER ==
[2020-01-17 18:11] LABS: BASO # 0.1 10^3/uL (0.0-0.2); BASO % 0.8 % (0.0-1.0); EOS # 0.4 10^3/uL (0.0-0.5); EOS % 6.6 % (0.0-3.0); HEMATOCRIT 35.6 % (36.0-47.0); HEMOGLOBIN 10.9 g/dl (12.0-15.5); LYMPH # 1.8 10^3/uL (1.5-5.0); LYMPH % 30.2 % (24.0-44.0); MEAN CORPUSCULAR HEMOGLOBIN 25.6 pg (27.0-33.0); MEAN CORPUSCULAR HGB CONC 30.6 g/dl (32.0-36.5); MEAN CORPUSCULAR VOLUME 83.8 fl (80.0-96.0); MONO # 0.4 10^3/uL (0.0-0.8); MONO % 6.4 % (0.0-5.0); NEUTROPHILS # 3.4 10^3/uL (1.5-8.5); NEUTROPHILS % 55.8 % (36.0-66.0); PLATELET COUNT, AUTOMATED 392 10^3/uL (150-450); RED BLOOD COUNT 4.25 10^6/uL (4.00-5.40); WHITE BLOOD COUNT 6.1 10^3/uL (4.0-10.0)
[2020-01-17 18:12] LABS: ALBUMIN 3.6 GM/DL (3.2-5.2); ALT/SGPT 22 U/L (12-78); BILIRUBIN,TOTAL 0.3 MG/DL (0.2-1.0); BLOOD UREA NITROGEN 7 MG/DL (7-18); CALCIUM LEVEL 8.5 MG/DL (8.5-10.1); CARBON DIOXIDE LEVEL 28 MEQ/L (21-32); CHLORIDE LEVEL 103 MEQ/L (98-107); CREATININE FOR GFR 0.57 MG/DL (0.55-1.30); GLOMERULAR FILTRATION RATE > 60.0 (>58); GLUCOSE, FASTING 79 MG/DL (70-100); MAGNESIUM LEVEL 2.3 MG/DL (1.8-2.4); PHOSPHORUS LEVEL 3.7 MG/DL (2.5-4.9); POTASSIUM SERUM 4.1 MEQ/L (3.5-5.1); SODIUM LEVEL 140 MEQ/L (136-145); TOTAL PROTEIN 7.4 GM/DL (6.4-8.2); TRIGLYCERIDES LEVEL 463 MG/DL (<150)
== END ==
LOC: M LAB REF 10:16
PROVIDERS: ATTEND Surgery
DX: Z00.00 Encounter for general adult medical examination without abnormal findings (principal)

== ENCOUNTER → 2020-01-18 | Outpatient (REF) | payer OTHER | LOC: M SFHCPLAZ 08:25 | PROVIDERS: ATTEND Internal Medicine Infectious Disease | DX: T80.219A Unspecified infection due to central venous catheter, initial encounter (principal); Y83.8 Other surgical procedures as the cause of abnormal reaction of the patient, or of later complication, without mention of misadventure at the time of the procedure ==

== ENCOUNTER → 2020-01-24 | Outpatient (REF) | payer OTHER ==
[2020-01-24 16:25] LABS: BASO % 0.4 % (0.0-1.0); EOS # 0.3 10^3/uL (0.0-0.5); EOS % 6.8 % (0.0-3.0); HEMATOCRIT 32.2 % (36.0-47.0); HEMOGLOBIN 9.9 g/dl (12.0-15.5); LYMPH # 1.1 10^3/uL (1.5-5.0); LYMPH % 23.7 % (24.0-44.0); MEAN CORPUSCULAR HGB CONC 30.7 g/dl (32.0-36.5); MEAN CORPUSCULAR VOLUME 84.5 fl (80.0-96.0); MONO # 0.5 10^3/uL (0.0-0.8); MONO % 11.1 % (0.0-5.0); NEUTROPHILS # 2.7 10^3/uL (1.5-8.5); NEUTROPHILS % 57.8 % (36.0-66.0); PLATELET COUNT, AUTOMATED 231 10^3/uL (150-450); RED BLOOD COUNT 3.81 10^6/uL (4.00-5.40); WHITE BLOOD COUNT 4.7 10^3/uL (4.0-10.0)
[2020-01-24 16:53] LABS: ALBUMIN 3.3 GM/DL (3.2-5.2); ALT/SGPT 190 U/L (12-78); BILIRUBIN,TOTAL 0.5 MG/DL (0.2-1.0); BLOOD UREA NITROGEN 7 MG/DL (7-18); CARBON DIOXIDE LEVEL 32 MEQ/L (21-32); CHLORIDE LEVEL 102 MEQ/L (98-107); CREATININE FOR GFR 0.65 MG/DL (0.55-1.30); GLOMERULAR FILTRATION RATE > 60.0 (>58); GLUCOSE, FASTING 124 MG/DL (70-100); MAGNESIUM LEVEL 2.2 MG/DL (1.8-2.4); PHOSPHORUS LEVEL 4.2 MG/DL (2.5-4.9); POTASSIUM SERUM 4.5 MEQ/L (3.5-5.1); PREALBUMIN 23.1 MG/DL (20.0-40.0); SODIUM LEVEL 138 MEQ/L (136-145); TOTAL PROTEIN 6.7 GM/DL (6.4-8.2); TRIGLYCERIDES LEVEL 163 MG/DL (<150)
[2020-01-25 10:21] LABS: C REACTIVE PROTEIN QUANTITATIV 2.91 MG/DL (0.00-0.30)
[2020-01-25 10:59] LABS: ERYTHROCYTE SEDIMENTATION RATE 47 mm/hr (0-20)
== END ==
LOC: M SHH 16:11
PROVIDERS: ATTEND Surgery
DX: T80.219A Unspecified infection due to central venous catheter, initial encounter (principal); A48.8 Other specified bacterial diseases; R50.9 Fever, unspecified

== ENCOUNTER → 2020-02-01 | Outpatient (REF) | payer OTHER ==
[~2020-02-01] MED LIST changes: +OXYC-1 PO; -OXYC15TA76 PO
[2020-02-01 12:03] LABS: FERRITIN 27 NG/ML (8-252)
[2020-02-01 12:15] LABS: HEPATITIS B SURFACE ANTIBODY POSITIVE (POSITIVE)
[2020-02-01 12:26] LABS: HEPATITIS B SURFACE ANTIGEN NEGATIVE (NEGATIVE)
[2020-02-01 12:54] LABS: HEPATITIS C VIRUS ABY INDEX 0.1 INDEX (<0.8)
[2020-02-01 12:55] LABS: HEPATITIS A ANTIBODY IGM NEGATIVE (NEGATIVE)
[2020-02-03 00:08] LABS: ALPHA 1 ANTITRYPSIN 200 mg/dL (101-187); ANTI-MITOCHONDRIAL ANTIBODY <20.0 Units (0.0-20.0); ANTI-SMOOTH MUSCLE ANTIBODY 8 Units (0-19); CERULOPLASMIN 53.4 mg/dL (19.0-39.0)
== END ==
LOC: M SHH 11:17
PROVIDERS: ATTEND Internal Medicine Gastroenterology
DX: R94.5 Abnormal results of liver function studies (principal); K52.9 Noninfective gastroenteritis and colitis, unspecified; R11.2 Nausea with vomiting, unspecified

== ENCOUNTER → 2020-02-01 | Outpatient (REF) | payer OTHER ==
[2020-02-01 17:27] LABS: BASO % 0.5 % (0.0-1.0); EOS # 0.3 10^3/uL (0.0-0.5); EOS % 4.1 % (0.0-3.0); HEMATOCRIT 37.2 % (36.0-47.0); HEMOGLOBIN 11.2 g/dl (12.0-15.5); LYMPH # 1.4 10^3/uL (1.5-5.0); LYMPH % 21.5 % (24.0-44.0); MEAN CORPUSCULAR HEMOGLOBIN 24.9 pg (27.0-33.0); MEAN CORPUSCULAR HGB CONC 30.1 g/dl (32.0-36.5); MEAN CORPUSCULAR VOLUME 82.9 fl (80.0-96.0); MONO # 0.4 10^3/uL (0.0-0.8); MONO % 5.5 % (0.0-5.0); NEUTROPHILS # 4.5 10^3/uL (1.5-8.5); NEUTROPHILS % 68.1 % (36.0-66.0); PLATELET COUNT, AUTOMATED 457 10^3/uL (150-450); RED BLOOD COUNT 4.49 10^6/uL (4.00-5.40); WHITE BLOOD COUNT 6.6 10^3/uL (4.0-10.0)
[2020-02-01 17:49] LABS: ALBUMIN 3.7 GM/DL (3.2-5.2); ALT/SGPT 48 U/L (12-78); BILIRUBIN,TOTAL 0.6 MG/DL (0.2-1.0); BLOOD UREA NITROGEN 9 MG/DL (7-18); CALCIUM LEVEL 9.3 MG/DL (8.5-10.1); CARBON DIOXIDE LEVEL 28 MEQ/L (21-32); CHLORIDE LEVEL 104 MEQ/L (98-107); GLOMERULAR FILTRATION RATE > 60.0 (>58); GLUCOSE, FASTING 121 MG/DL (70-100); PHOSPHORUS LEVEL 4.4 MG/DL (2.5-4.9); SODIUM LEVEL 138 MEQ/L (136-145); TOTAL PROTEIN 7.6 GM/DL (6.4-8.2); TRIGLYCERIDES LEVEL 137 MG/DL (<150)
== END ==
LOC: M SHH 16:41
PROVIDERS: ATTEND Physician Assistant
DX: E44.0 Moderate protein-calorie malnutrition (principal); R62.7 Adult failure to thrive; E10.9 Type 1 diabetes mellitus without complications; K21.9 Gastro-esophageal reflux disease without esophagitis

== ENCOUNTER → 2020-02-04 | Outpatient (REF) | payer OTHER ==
[2020-02-04 15:57] LABS: BASO # 0.1 10^3/uL (0.0-0.2); BASO % 0.8 % (0.0-1.0); EOS # 0.4 10^3/uL (0.0-0.5); EOS % 5.8 % (0.0-3.0); HEMATOCRIT 41.8 % (36.0-47.0); HEMOGLOBIN 12.8 g/dl (12.0-15.5); LYMPH # 1.9 10^3/uL (1.5-5.0); LYMPH % 29.5 % (24.0-44.0); MEAN CORPUSCULAR HEMOGLOBIN 25.3 pg (27.0-33.0); MEAN CORPUSCULAR HGB CONC 30.6 g/dl (32.0-36.5); MEAN CORPUSCULAR VOLUME 82.8 fl (80.0-96.0); MONO # 0.5 10^3/uL (0.0-0.8); MONO % 7.7 % (0.0-5.0); NEUTROPHILS # 3.5 10^3/uL (1.5-8.5); NEUTROPHILS % 55.7 % (36.0-66.0); PLATELET COUNT, AUTOMATED 507 10^3/uL (150-450); RED BLOOD COUNT 5.05 10^6/uL (4.00-5.40); WHITE BLOOD COUNT 6.3 10^3/uL (4.0-10.0)
[2020-02-04 16:17] LABS: ALBUMIN 4.3 GM/DL (3.2-5.2); ALT/SGPT 28 U/L (12-78); BILIRUBIN,TOTAL 0.2 MG/DL (0.2-1.0); BLOOD UREA NITROGEN 9 MG/DL (7-18); C REACTIVE PROTEIN QUANTITATIV < 0.30 MG/DL (0.00-0.30); CALCIUM LEVEL 9.7 MG/DL (8.5-10.1); CARBON DIOXIDE LEVEL 24 MEQ/L (21-32); CHLORIDE LEVEL 103 MEQ/L (98-107); CREATININE FOR GFR 0.75 MG/DL (0.55-1.30); ERYTHROCYTE SEDIMENTATION RATE 25 mm/hr (0-20); GLOMERULAR FILTRATION RATE > 60.0 (>58); GLUCOSE, FASTING 83 MG/DL (70-100); POTASSIUM SERUM 3.8 MEQ/L (3.5-5.1); SODIUM LEVEL 136 MEQ/L (136-145); TOTAL PROTEIN 8.3 GM/DL (6.4-8.2)
== END ==
LOC: M SFHCPLAZ 14:41
PROVIDERS: ATTEND Family Medicine
DX: R50.9 Fever, unspecified (principal); R79.89 Other specified abnormal findings of blood chemistry

== ENCOUNTER → 2020-02-05 | Outpatient (CLI) | payer BC, OTHER ==
--- NOTE | 2020-02-06 00:25 | ECHO ---
DATE OF PROCEDURE: 02/05/2020 REFERRING PHYSICIAN: Dr. Cait Wyatt PATIENT LOCATION: Outpatient. REASON FOR THE STUDY: Fever. 2D MEASUREMENTS: IVS: 0.8 cm LV: 3.6 cm LVPW: 0.8 cm LA: 2.5 cm Aorta: 2.5 cm IVC: 1.0 cm DOPPLER MEASUREMENTS: Peak velocity across the aortic valve: 1.0 meters per second Peak velocity across the LVOT: 0.73 meters per second Mitral E: 0.58, Mitral A: 0.69 with a ratio of 0.8. 2D COMMENTS: 1. Normal left ventricular size, wall thickness, and overall global left ventricular systolic function was normal with an left ventricular ejection fraction (LVEF) estimated at 55-60%. 2. Normal left atrium. Normal right atrium and right ventricle. 3. The atrial septum appeared to be normal without evidence of defect or shunt. 4. Normal aortic root. 5. A small pericardial effusion was noted, no evidence of cardiac tamponade, and this was larger anteriorly. 6. Mildly calcified aortic valve with normal leaflet excursion. Normal mitral valve, tricuspid, and pulmonic valve. The proximal pulmonary artery branches were not well visualized. 7. The inferior vena cava was normal in size, central venous pressure is most likely normal. DOPPLER: Only trace mitral regurgitation and trace tricuspid regurgitation detected. Abnormal relaxation pattern was noted across the mitral valve annulus consistent with some features of grade 1 left ventricular diastolic dysfunction. IMPRESSION: 1. Normal global left ventricular systolic function. There are some features of left ventricular diastolic dysfunction manifested by abnormal relaxation. 2. Aortic valve sclerosis without stenosis or aortic regurgitation. 3. Trace mitral regurgitation. 4. Trace tricuspid regurgitation. 5. Small pericardial effusion was noted, no evidence of cardiac tamponade. 6. This was compared with most recent echocardiogram on 04/01/2019 and at that time, left ventricular systolic function was normal and also noted: Mild aortic regurgitation, mild mitral regurgitation, mild tricuspid regurgitation, and trace pericardial effusion. 7. The patient during the test was noted to be mildly tachycardiac with a heart rate that varied between 100 and 105 beats per minute at times. MTDD
== END ==
LOC: M CARPUL 09:06
PROVIDERS: ATTEND Family Medicine
DX: R50.9 Fever, unspecified (principal)

== ENCOUNTER → 2020-02-07 | Outpatient (REF) | payer BC, OTHER ==
[2020-02-07 18:27] LABS: BASO % 0.7 % (0.0-1.0); EOS # 0.5 10^3/uL (0.0-0.5); EOS % 8.5 % (0.0-3.0); HEMATOCRIT 35.6 % (36.0-47.0); HEMOGLOBIN 10.8 g/dl (12.0-15.5); LYMPH # 0.7 10^3/uL (1.5-5.0); LYMPH % 12.5 % (24.0-44.0); MEAN CORPUSCULAR HEMOGLOBIN 25.2 pg (27.0-33.0); MEAN CORPUSCULAR HGB CONC 30.3 g/dl (32.0-36.5); MEAN CORPUSCULAR VOLUME 83.2 fl (80.0-96.0); MONO # 0.4 10^3/uL (0.0-0.8); MONO % 7.3 % (0.0-5.0); NEUTROPHILS # 4.1 10^3/uL (1.5-8.5); NEUTROPHILS % 70.7 % (36.0-66.0); PLATELET COUNT, AUTOMATED 408 10^3/uL (150-450); RED BLOOD COUNT 4.28 10^6/uL (4.00-5.40); WHITE BLOOD COUNT 5.7 10^3/uL (4.0-10.0)
[2020-02-07 18:54] LABS: ALBUMIN 3.6 GM/DL (3.2-5.2); ALT/SGPT 64 U/L (12-78); BILIRUBIN,TOTAL 0.4 MG/DL (0.2-1.0); BLOOD UREA NITROGEN 11 MG/DL (7-18); CALCIUM LEVEL 8.9 MG/DL (8.5-10.1); CARBON DIOXIDE LEVEL 27 MEQ/L (21-32); CHLORIDE LEVEL 106 MEQ/L (98-107); CREATININE FOR GFR 0.79 MG/DL (0.55-1.30); GLOMERULAR FILTRATION RATE > 60.0 (>58); GLUCOSE, FASTING 101 MG/DL (70-100); MAGNESIUM LEVEL 2.2 MG/DL (1.8-2.4); PHOSPHORUS LEVEL 3.9 MG/DL (2.5-4.9); POTASSIUM SERUM 4.2 MEQ/L (3.5-5.1); PREALBUMIN 26.6 MG/DL (20.0-40.0); SODIUM LEVEL 138 MEQ/L (136-145)
== END ==
LOC: M SHH 18:17
PROVIDERS: ATTEND Surgery
DX: Z79.899 Other long term (current) drug therapy (principal)

== ENCOUNTER → 2020-02-15 | Outpatient (REF) | payer OTHER | LOC: M LAB REF 12:30 | PROVIDERS: ATTEND Physician Assistant | DX: E44.0 Moderate protein-calorie malnutrition (principal); R62.7 Adult failure to thrive; E10.9 Type 1 diabetes mellitus without complications; K21.9 Gastro-esophageal reflux disease without esophagitis ==

== ENCOUNTER → 2020-02-15 | Outpatient (REF) | payer OTHER ==
[2020-02-15 15:45] LABS: BASO # 0.1 10^3/uL (0.0-0.2); BASO % 0.6 % (0.0-1.0); EOS # 0.4 10^3/uL (0.0-0.5); EOS % 3.8 % (0.0-3.0); HEMOGLOBIN 12.3 g/dl (12.0-15.5); LYMPH # 2.6 10^3/uL (1.5-5.0); LYMPH % 26.9 % (24.0-44.0); MEAN CORPUSCULAR HEMOGLOBIN 26.2 pg (27.0-33.0); MEAN CORPUSCULAR HGB CONC 31.5 g/dl (32.0-36.5); MEAN CORPUSCULAR VOLUME 83.2 fl (80.0-96.0); MONO # 0.7 10^3/uL (0.0-0.8); MONO % 7.3 % (0.0-5.0); NEUTROPHILS % 61.1 % (36.0-66.0); PLATELET COUNT, AUTOMATED 396 10^3/uL (150-450); RED BLOOD COUNT 4.69 10^6/uL (4.00-5.40); WHITE BLOOD COUNT 9.8 10^3/uL (4.0-10.0)
[2020-02-15 16:17] LABS: ALT/SGPT 19 U/L (12-78); BILIRUBIN,TOTAL 0.4 MG/DL (0.2-1.0); BLOOD UREA NITROGEN 12 MG/DL (7-18); CALCIUM LEVEL 9.4 MG/DL (8.5-10.1); CARBON DIOXIDE LEVEL 28 MEQ/L (21-32); CHLORIDE LEVEL 104 MEQ/L (98-107); CREATININE FOR GFR 0.68 MG/DL (0.55-1.30); GLOMERULAR FILTRATION RATE > 60.0 (>58); GLUCOSE, FASTING 94 MG/DL (70-100); PHOSPHORUS LEVEL 4.2 MG/DL (2.5-4.9); PREALBUMIN 38.7 MG/DL (20.0-40.0); SODIUM LEVEL 138 MEQ/L (136-145); TOTAL PROTEIN 7.6 GM/DL (6.4-8.2)
== END ==
LOC: M LAB REF 15:29
PROVIDERS: ATTEND Surgery
DX: Z79.899 Other long term (current) drug therapy (principal)

== ENCOUNTER → 2020-02-24 | Outpatient (REF) | payer OTHER ==
[~2020-02-24] MED LIST changes: +LOVE1INJ SC
[2020-02-24 18:34] LABS: BASO % 0.4 % (0.0-1.0); EOS # 0.4 10^3/uL (0.0-0.5); EOS % 5.5 % (0.0-3.0); HEMATOCRIT 37.7 % (36.0-47.0); HEMOGLOBIN 11.5 g/dl (12.0-15.5); LYMPH # 1.5 10^3/uL (1.5-5.0); LYMPH % 22.9 % (24.0-44.0); MEAN CORPUSCULAR HEMOGLOBIN 25.8 pg (27.0-33.0); MEAN CORPUSCULAR HGB CONC 30.5 g/dl (32.0-36.5); MEAN CORPUSCULAR VOLUME 84.7 fl (80.0-96.0); MONO # 0.5 10^3/uL (0.0-0.8); MONO % 7.7 % (0.0-5.0); NEUTROPHILS # 4.2 10^3/uL (1.5-8.5); NEUTROPHILS % 63.2 % (36.0-66.0); PLATELET COUNT, AUTOMATED 321 10^3/uL (150-450); RED BLOOD COUNT 4.45 10^6/uL (4.00-5.40); WHITE BLOOD COUNT 6.7 10^3/uL (4.0-10.0)
[2020-02-24 18:55] LABS: ALT/SGPT 48 U/L (12-78); BILIRUBIN,TOTAL 0.6 MG/DL (0.2-1.0); BLOOD UREA NITROGEN 5 MG/DL (7-18); CALCIUM LEVEL 9.4 MG/DL (8.5-10.1); CARBON DIOXIDE LEVEL 27 MEQ/L (21-32); CHLORIDE LEVEL 102 MEQ/L (98-107); CREATININE FOR GFR 0.84 MG/DL (0.55-1.30); GLOMERULAR FILTRATION RATE > 60.0 (>58); GLUCOSE, FASTING 115 MG/DL (70-100); PHOSPHORUS LEVEL 4.7 MG/DL (2.5-4.9); POTASSIUM SERUM 3.8 MEQ/L (3.5-5.1); SODIUM LEVEL 140 MEQ/L (136-145)
[2020-02-24 18:56] LABS: ALBUMIN 3.7 GM/DL (3.2-5.2); MAGNESIUM LEVEL 2.1 MG/DL (1.8-2.4); TOTAL PROTEIN 7.2 GM/DL (6.4-8.2); TRIGLYCERIDES LEVEL 123 MG/DL (<150)
== END ==
LOC: M LAB REF 18:08
PROVIDERS: ATTEND Surgery
DX: Z79.899 Other long term (current) drug therapy (principal)

== ENCOUNTER → 2020-02-29 | Outpatient (CLI) | payer BC, OTHER ==
[~2020-02-29] MED LIST changes: +LIDOCAINE 1% MDV 20ML VIAL As Ordered ONE; +MIDAZOLAM INJ 2MG/2ML VIAL (J2250 PER 1MG) As Ordered ONE; +ceFAZolin 1GM VIAL (J0690 PER 500MG) As Ordered ONE; +diphenhydrAMINE 50MG/ML VIAL (J1200) As Ordered ONE; +fentaNYL 100 MCG/2 ML INJECTION (J3010) As Ordered ONE
--- NOTE | 2020-02-29 15:14 | REP ---
IR Galicia catheter insertion under fluoroscopy and ultrasound guidance. Ultrasound of the right neck. Clinical information: Malnourished. Needs Galicia catheter for TPN. Physician: Dr. Gomez. Procedure: The patient was advised of the benefits, risks and alternatives of the procedure and informed consent was obtained. The time-out was performed with verification of the patient's name, MRN, site of procedure and type of procedure to be performed. The patient was positioned in the supine position on the angiographic table. The site was prepped and draped in the usual sterile fashion. Moderate sedation was performed by the physician including the presence of an independent trained observer that assisted in monitoring the patient's level of consciousness and physiologic status. Following the administration of Versed and Fentanyl, the physician spent 45 minutes of continuous face to face time with the patient. Ultrasound of the neck reveals a patent and compressible right internal jugular vein. A candy bar attendant radiograph reveals right sided PICC line. The neck and anterior chest wall were anesthetized with lidocaine. The right internal jugular vein was accessed using a micro introducer needle under ultrasound guidance, via a lateral approach. The 018 cope wire was advanced into the superior vena cava. The needle was removed and a micro introducer sheath was placed. An Amplatz wire was then passed into the inferior vena cava. Incision at the internal jugular access site and anterior chest wall were made using a scalpel. A dual-lumen [place] catheter was inserted through the subcutaneous tissues of the chest wall with a tunneling device. The micro introducer sheath was removed and internal jugular puncture site was upsized with dilator. A peel-away sheath was placed over the wire and into the superior vena cava. The wire and stiffener were removed. The catheter was passed through the internal jugular vein via the sheath. The peel-away sheath was then removed. The catheter tip was positioned in the cavo atrial junction. The puncture site was closed. The catheter was secured in place using 2-0 Prolene. Both sites were cleansed and sterile dressing was applied. At the conclusion of the procedure, the ports of the catheter aspirate and flush freely. The patient tolerated the procedure well and was returned to [facility] in stable condition. EBL: Less than 5 ml. Complications: None. Conclusion: Successful placement of a dual-lumen [place] catheter. The catheter is ready for immediate use. Thank you this referral. Electronically Signed by Kisha Gomez MD 02/29/2020 03:13 P
[2020-02-29 15:30] VITALS: BP 104/66
== END ==
LOC: M IRPRO 11:23
PROVIDERS: ATTEND Family Medicine
DX: E46 Unspecified protein-calorie malnutrition (principal); M96.1 Postlaminectomy syndrome, not elsewhere classified; M48.9 Spondylopathy, unspecified; K31.84 Gastroparesis; K21.9 Gastro-esophageal reflux disease without esophagitis; Z78.9 Other specified health status; D50.0 Iron deficiency anemia secondary to blood loss (chronic); D68.59 Other primary thrombophilia; F41.8 Other specified anxiety disorders; F51.04 Psychophysiologic insomnia; R91.8 Other nonspecific abnormal finding of lung field; K91.2 Postsurgical malabsorption, not elsewhere classified; R62.7 Adult failure to thrive; E16.1 Other hypoglycemia; T80.219D Unspecified infection due to central venous catheter, subsequent encounter; A48.8 Other specified bacterial diseases; B95.7 Other staphylococcus as the cause of diseases classified elsewhere; Z93.4 Other artificial openings of gastrointestinal tract status; Z79.899 Other long term (current) drug therapy; Z79.84 Long term (current) use of oral hypoglycemic drugs
CPT/HCPCS: 36558; 99152; 99153; C1750; C1769; C1894; J0690; J1200; J1642; J1644; J2250; J3010

== ENCOUNTER → 2020-03-18 | Outpatient (REF) | payer OTHER ==
[~2020-03-18] MED LIST changes: -LIDOCAINE 1% MDV 20ML VIAL As Ordered ONE; -MIDAZOLAM INJ 2MG/2ML VIAL (J2250 PER 1MG) As Ordered ONE; -ceFAZolin 1GM VIAL (J0690 PER 500MG) As Ordered ONE; -diphenhydrAMINE 50MG/ML VIAL (J1200) As Ordered ONE; -fentaNYL 100 MCG/2 ML INJECTION (J3010) As Ordered ONE
[2020-03-18 15:40] LABS: BASO % 0.5 % (0.0-1.0); EOS # 0.4 10^3/uL (0.0-0.5); EOS % 6.6 % (0.0-3.0); HEMATOCRIT 33.3 % (36.0-47.0); HEMOGLOBIN 10.2 g/dl (12.0-15.5); LYMPH # 1.5 10^3/uL (1.5-5.0); MEAN CORPUSCULAR HEMOGLOBIN 25.9 pg (27.0-33.0); MEAN CORPUSCULAR HGB CONC 30.6 g/dl (32.0-36.5); MEAN CORPUSCULAR VOLUME 84.5 fl (80.0-96.0); MONO # 0.6 10^3/uL (0.0-0.8); NEUTROPHILS % 60.7 % (36.0-66.0); PLATELET COUNT, AUTOMATED 291 10^3/uL (150-450); RED BLOOD COUNT 3.94 10^6/uL (4.00-5.40); WHITE BLOOD COUNT 6.5 10^3/uL (4.0-10.0)
[2020-03-18 16:06] LABS: ALBUMIN 3.4 GM/DL (3.2-5.2); ALT/SGPT 45 U/L (12-78); BILIRUBIN,TOTAL 0.4 MG/DL (0.2-1.0); BLOOD UREA NITROGEN 8 MG/DL (7-18); CALCIUM LEVEL 8.5 MG/DL (8.5-10.1); CARBON DIOXIDE LEVEL 31 MEQ/L (21-32); CHLORIDE LEVEL 104 MEQ/L (98-107); GLOMERULAR FILTRATION RATE > 60.0 (>58); GLUCOSE, FASTING 71 MG/DL (70-100); MAGNESIUM LEVEL 2.4 MG/DL (1.8-2.4); POTASSIUM SERUM 4.5 MEQ/L (3.5-5.1); PREALBUMIN 27.5 MG/DL (20.0-40.0); SODIUM LEVEL 137 MEQ/L (136-145); TOTAL PROTEIN 6.4 GM/DL (6.4-8.2)
== END ==
LOC: M LAB REF 15:25
PROVIDERS: ATTEND Surgery
DX: Z79.899 Other long term (current) drug therapy (principal)

== ENCOUNTER 2020-03-22 23:39 | Observation (INO) | payer BC, OTHER ==
[~2020-03-22] VITALS: Ht 170.2 cm; Wt 72.5 kg
[~2020-03-22 23:39] MED LIST changes: -CREO3000; +CREO3000 PO; -METH5TA; +METH5TA PO; -PANT40IN4; +PANT40IN4 SC; -ZOLP12.515; -ZOLP12.515 PO; +ZOLP12.518; +ZOLP12.518 PO; -[UNRECOGNIZED DRUG - CODE]; -[UNRECOGNIZED DRUG - CODE]; +[UNRECOGNIZED DRUG - CODE] PO; +[UNRECOGNIZED DRUG - CODE] SC
[2020-03-23] MEDS ORDERED: PROMETHAZINE INJ 25 MG/ML VIAL (J2550) IV ONE (00:15)
[2020-03-23] MEDS ORDERED: SODIUM CHLORIDE 0.9% INJ 10 ML SYR IV PRN (00:15)
[2020-03-23] MEDS ORDERED: MORPHINE 4 MG/ML 1ML VIAL/SYRINGE (J2270) IV ONE (00:15)
[2020-03-23 00:38] LABS: BASO % 0.4 % (0.0-1.0); EOS % 0.1 % (0.0-3.0); HEMATOCRIT 38.3 % (36.0-47.0); LYMPH # 0.7 10^3/uL (1.5-5.0); LYMPH % 8.4 % (24.0-44.0); MEAN CORPUSCULAR HEMOGLOBIN 25.9 pg (27.0-33.0); MEAN CORPUSCULAR HGB CONC 31.3 g/dl (32.0-36.5); MEAN CORPUSCULAR VOLUME 82.5 fl (80.0-96.0); MONO # 0.2 10^3/uL (0.0-0.8); MONO % 2.9 % (0.0-5.0); NEUTROPHILS # 7.4 10^3/uL (1.5-8.5); NEUTROPHILS % 87.8 % (36.0-66.0); PLATELET COUNT, AUTOMATED 361 10^3/uL (150-450); RED BLOOD COUNT 4.64 10^6/uL (4.00-5.40); WHITE BLOOD COUNT 8.4 10^3/uL (4.0-10.0)
[2020-03-23] MEDS ORDERED: METAL LOCK LOOP XX ONE (00:55)
[2020-03-23 01:12] LABS: ALT/SGPT 55 U/L (12-78); BILIRUBIN,DIRECT < 0.1 MG/DL (0.0-0.2); BILIRUBIN,TOTAL 0.7 MG/DL (0.2-1.0); LIPASE 159 U/L (73-393); TOTAL PROTEIN 7.7 GM/DL (6.4-8.2)
--- NOTE | 2020-03-23 01:18 | REP ---
Clinical: Check port placement . Comparison: 01/04/2020 . Technique: PA and lateral. Findings: The mediastinum and cardiac silhouette are normal. Tunneled venous catheter identified with tip in the SVC. The lung snell are clear and without acute consolidation, effusion, or pneumothorax. The skeletal structures are intact and normal. Impression: 1. No acute cardiopulmonary process. 2. Tunneled venous catheter in satisfactory position with tip in the SVC. Electronically Signed by Michael James MD 03/23/2020 01:09 A
--- NOTE | 2020-03-23 01:38 | REPVR ---
PROCEDURE INFORMATION: Exam: CT Abdomen And Pelvis With Contrast Exam date and time: 03/23/2020 12:11 AM Age: 40 years old Clinical indication: Abdominal pain; Localized; Right; Additional info: Right sided abd pain TECHNIQUE: Imaging protocol: Computed tomography of the abdomen and pelvis with intravenous contrast. Radiation optimization: All CT scans at this facility use at least one of these dose optimization techniques: automated exposure control; mA and/or kV adjustment per patient size (includes targeted exams where dose is matched to clinical indication); or iterative reconstruction. Contrast material: ISO; Contrast volume: 100 ml; Contrast route: INFUSAPORT; COMPARISON: CT ABD/PEL W/IV CONTRAST ONLY 01/03/2020 9:43 PM FINDINGS: Heart: No cardiomegaly or pericardial effusion. Lungs: There is an 8 mm nodular opacity in the left lower lobe (image 13 of the axial series 204), which has developed since the prior CT abdomen and pelvis on 01/03/2020. The lungs were not fully imaged. Liver: The attenuation of the liver is more than 40 Hounsfield units lower in attenuation compared to the spleen, which is compatible with fatty liver infiltration. No liver lesion is seen. The contour of the liver is smooth. The liver is enlarged and measures 16.1 cm in craniocaudal dimension at the level of the right midclavicular line. Gallbladder and bile ducts: There has been a cholecystectomy. There is no fluid collection in the gallbladder fossa. The common bile duct is dilated and measures 9 mm in diameter at the level of the becka hepatis, but tapers to a normal caliber of 3 mm in diameter at the level of the head of the pancreas. No calcified stones are seen in the common bile duct. Pancreas: Normal. No dilation of the main pancreatic duct is noted. There is no inflammatory fat stranding around the pancreas to suggest acute pancreatitis. Spleen: Normal. No splenomegaly is noted. Incidental note is made of a small accessory spleen. Adrenals: Normal. No adrenal mass is noted. Kidneys and ureters: The kidneys are normal in appearance. No renal lesion is noted. No stones are noted in the kidneys or ureters. There is no hydronephrosis or hydroureter. There are no wedge-shaped areas of low attenuation in the kidneys to suggest pyelonephritis. There is no renal abscess or perinephric fluid collection. Stomach and bowel: Postoperative changes are noted from a Nadege-en-Y gastric bypass surgery. There is no evidence for a bowel obstruction, diverticulosis, diverticulitis, perforated viscus, pneumatosis intestinalis, intussusception, or volvulus. The colon is diffusely decompressed, limiting its optimal evaluation. There is no pericolonic inflammatory fat stranding. Appendix: Normal. There is no evidence for appendicitis. Intraperitoneal space: No free air. No ascites. No asbcess. The percutaneous jejunostomy tube is noted entering into the left upper quadrant of the abdomen. Retroperitoneal space: No fluid collection. No mass. Vasculature: The abdominal aorta is patent, normal in caliber, and there is no dissection. The iliac arteries, common femoral arteries, renal arteries, celiac artery, superior mesenteric artery, and inferior mesenteric artery are patent. Lymph nodes: No enlarged lymph nodes. Bladder: The partially distended urinary bladder is unremarkable. No stones or masses are seen in the bladder. Reproductive: There has been a hysterectomy. There is a 3.8 cm left ovarian cyst with simple characteristics that has developed since the prior CT abdomen and pelvis on 01/03/2020. The right ovary is unremarkable. Bones/joints: Postoperative changes are noted from a posterior instrumented spinal fusion, interbody fusion, and bilateral posterolateral fusion at the L4-L5 and L5-S1 levels with bilateral vertical posterior rods, transpedicular screws, and interbody fusion devices, which are appropriately positioned, without evidence for loosening or fracture of the hardware. There are degenerative changes in the lumbar spine at the L2-L3 and L3-L4 levels. Soft tissues: There is edema in the subcutaneous tissues around the percutaneous jejunostomy tube, which has decreased compared to the prior CT abdomen and pelvis on 01/06/2020. No drainable soft tissue fluid collection or hernia is noted. IMPRESSION: 1. No acute findings in the abdomen or pelvis. Normal appendix. 2. Enlarged, fatty liver. 3. 3.8 cm left ovarian cyst with simple characteristics that has developed since the prior CT abdomen and pelvis on 01/03/2020 and for which follow-up is not necessary. 4. 8 mm nodular opacity in the left lower lobe, which has developed since the prior CT abdomen and pelvis on 01/03/2020. See management guidelines below. FLE[employer]CHNER SOCIETY 2017 GUIDELINES FOR MANAGEMENT OF INCIDENTAL PULMONARY NODULES: Single solid nodule 6-8 mm: In a low risk patient, CT at 6-12 months, then consider CT at 18-24 months. In a high risk patient, CT at 6-12 months, then CT at 18-24 months. High Risk Patients as defined in the 2017 Fleischner Society Guidelines: ?History of heavy smoking ?Exposure to asbestos, radium, or uranium ?Family history of lung cancer ?Emphysema and pulmonary fibrosis (IPF in particular) ?Older age ?Sex (females at greater risk than men) ?Race (Blacks and at higher risk) ?Marginal spiculation / suspicious morphology ?Upper lobe location (also apex) ?Multiple nodules (2-5 nodules highest risk) ?Exceptions, such as technically suboptimal scanning REFERENCE: Betsy H, Sandra DP, Kvngo IRVIN, et al. Guidelines for Management of Incidental Pulmonary Nodules Detected on CT images: From the Fleischner Society 2017. Radiology, April 2017;284(1):228-243. http://pubs.rsna.org/doi/pdf/[email or web address] Electronically signed by: Raymundo Hicks On 03/23/2020 01:38:23 AM
[2020-03-23] MEDS ORDERED: HALOPERIDOL 5MG/ML VIAL (J1630 PER 1) IV ONE (02:15)
[2020-03-23] MEDS ORDERED: OXYC10TA12 PO (03:02)
[2020-03-23] MEDS ORDERED: ENOX80IN3 SC (03:02)
[2020-03-23] MEDS ORDERED: ONDA2VL IV (03:02)
[2020-03-23] MEDS ORDERED: MORP20SOL PO (03:08)
[2020-03-23] MEDS ORDERED: zolPIDEM TARTRATE 5 MG TAB PO PRN (03:30)
[2020-03-23] MEDS ORDERED: ALBUTEROL SULFATE 2.5 MG/0.5 ML INH NEB SOLN INH PRN (03:30)
[2020-03-23] MEDS ORDERED: ACETAMINOPHEN TAB 650MG DOSE (2X325MG) PO PRN (03:30)
[2020-03-23] MEDS ORDERED: ALBUTEROL 90 MCG/ACT 8GM HFA INHALER INH PRN (03:30)
--- NOTE | 2020-03-23 03:31 | HPEPDOC ---
General Date of Admission Date of Service: Mar 23, 2020 Chief Complaint The patient is a 40-year-old female admitted with a reason for visit of N/V/D. Source: Patient Exam Limitations: No limitations Timing/Duration: Other (since this morning) Severity: Moderate Associated Symptoms: Other (, nausea, vomiting and right upper quadrant pain) History of Present Illness This is 40 years old white female with past medical history of gastric bypass surgery with complication secondary to short gut syndrome, gastroparesis, GERD, failure to thrive on chronic TPN. Also has a J-tube which, she uses only for meds chronic back and abdominal pain. History of depression, anxiety, chronic iron deficiency anemia. Protein S deficiency, history of thrombocytosis secondary to central line developed persistent nausea and vomiting along with right upper quadrant pain since early this morning. Patient received a Phenergan and morphine in ED, but her nausea, vomiting did not resolve and then she was given Haldol 5 mg IV as anti-emetics. We were called in to admit patient for observation secondary to intractable nausea, vomiting Home Medications Scheduled Enoxaparin Sodium (Enoxaparin Sodium) 80 Mg/0.8 Ml Syringe, 70 MG SC Q12H, (Reported) Fluoxetine Hcl (Fluoxetine HCl) 20 Mg Capsule, 20 MG PO DAILY, (Reported) Heparin Sodium,Porcine/Pf (Heparin 1,000 Unit/10 (100/ml)) 1,000 Unit/10 Ml Syringe, 500 UNIT IV DAILY, (Reported) THROUGH PICC LINE Lipase/Protease/Amylase (Creon Dr 3,000 Units Capsule) 1 Each Capsule.dr, 1 CAP PO QID, (Reported) Multivit Infusn,Adult 4,Vit K (Infuvite) 10 Ml Vial, 1 TAB PO QHS, (Reported) Pantoprazole Sodium (Pantoprazole Sodium) 40 Mg Vial, 40 MG SC BID, (Reported) THROUGH PICC LINE Scheduled PRN Acetaminophen (Acetaminophen) 500 Mg Tablet, 500 MG PO Q6H PRN for PAIN, (Reported) Albuterol Sulf (Albuterol Sulfate) 2.5 Mg/3 Ml Vial.neb, 2.5 MG INH Q4H PRN for SHORTNESS OF BREATH, (Reported) Albuterol Sulfate (Ventolin Hfa) 18 Gm Hfa.aer.ad, 2 PUFF INH Q6H PRN for SHORTNESS OF BREATH, (Reported) Diphenhydramine HCl (Diphenhydramine HCl) 50 Mg/1 Ml Vial, 50 MG SC DAILY PRN for SEVERE NAUSEA, (Reported) THROUGH PICC LINE Morphine Sulfate (Morphine Sulfate Concentrate) 100 Mg/5 Ml Solution, 1 ML PO Q4H PRN for PAIN, (Reported) Ondansetron (Ondansetron HCl) 2 Mg/1 Ml Vial, 2 MG IV BID PRN for NAUSEA OR VOMITING, (Reported) THROUGH PICC LINE Promethazine HCl (Phenadoz) 25 Mg Sup, 25 MG MT Q12H PRN for NAUSEA OR VOMITING, (Reported) Zolpidem Tartrate (Ambien) 5 Mg Tablet, 5 MG PO QHS PRN for sleep, (Reported) Allergies Coded Allergies: Sulfa (Sulfonamide Antibiotics) (Verified Allergy, Severe, RESP. PROBLEMS, SWELLING, HIVES, 01/14/19) butorphanol (Verified Allergy, Severe, HIVES/RESP. PROBLEMS (PERCOCET AND TYL#3 OK), 01/14/19) HAS HAD MORPHINE AND DILAUDID IN THE PAST levofloxacin (Verified Allergy, Severe, THROAT SWELLING/HIVES, 01/14/19) tomato (Verified Allergy, Severe, RESP. PROBLEMS, HIVES, 01/14/19) tramadol (Verified Allergy, Severe, SOB - HAS HAD MORPHINE AND DILAUDID IN THE PAST, 01/14/19) scopolamine (Verified Adverse Reaction, Intermediate, VISION LOSS, ) NSAIDS (Non-Steroidal Anti-Inflamma (Verified Adverse Reaction, Mild, GASTRIC BYPASS, 01/14/19) Past Medical History Medical History Gastric bypass surgery with complications, short gut syndrome, GERD, failure to thrive, on chronic TPN and J-tube for feeding and meds, chronic back and abdominal pain, depression and anxiety, chronic iron deficiency anemia, protein S deficiency on Lovenox, history of thrombocytosis Surgical History , Back surgery, tonsillectomy, gastric bypass, endometrial ablation, hysterectomy, [place] catheter right leg wound drained left subclavian port J- tube placement and removal of G-tube placement subclavian port removal in 2018 PICC line placed in 2018, bowel resection, gastric bypass reversal Family History Father. Mother are both alive. No history of cancer or diabetes Social History * Smoker: Denies Alcohol: Denies Drugs: denies A-FIB/CHADSVASC A-FIB History Current/History of A-Fib/PAF?: No Review of Systems Constitutional: Denies: Chills, Fever, Malaise, Night Sweats, Weakness, Fatigue, Weight Loss, Lethargy, Other Eyes: Denies: Pain, Vision change, Conjunctivae inflammation, Eyelid inflammation, Redness, Other ENT: Denies: Head Aches, Ear Pain, Dysphagia, Sinus Congestion, Post Nasal Drip, Sore Throat, Epistaxis, Other Symptoms Skin: Denies: Rash, Lesions, Jaundice, Bruising, Itching, Dry, Breakdown, Nail Changes, Other Pulmonary: Denies: Dyspnea, Cough, Pleuritic Chest Pain, Other Symptoms Gastrointestinal: Reports: Nausea, Vomiting, Abdominal Pain Genitourinary: Denies: Dysuria, Frequency, Incontinence, Hematuria, Retention, Other Symptoms Hematologic: Denies: Bruising, Bleeding Excessively, Petecchia, Purpura, Enlarged Lymph Nodes, Other Hematologic Endocrine: Denies: Polydipsia, Polyphagia, Polyuria, Heat Intolerance, Cold Intolerance, Other Endocrine Sx Musculoskeletal: Denies: Neck Pain, Back Pain, Shoulder Pain, Arm Pain, Hand Pain, Leg Pain, Foot Pain, Joint Pain, Muscle Pain, Spasms, Other Symptoms Neurological: Denies: Weakness, Numbness, Incoordination, Change in speech, Confusion, Seizures, Other Symptoms Psych: Denies: Mood Normal, Anxiety, Depression, Memory Issues, Thoughts of Self Harm, Anger, Thoughts of Harming Other, Other Psych Physical Examination General Exam: Positive: Alert, Cooperative Eye Exam: Positive: PERRLA, Conjunctiva & lids normal ENT Exam: Positive: Atraumatic, Mucous membr. moist/pink Neck Exam: Positive: Supple Chest Exam: Positive: Clear to auscultation, Normal air movement Heart Exam: Positive: Rate Normal, Normal S1, Normal S2 Abdomen Exam: Positive: Normal bowel sounds, Soft Extremity Exam: Positive: Normal pulses Skin Exam: Positive: Nl turgor and temperature Neuro Exam: Positive: Strength at 5/5 X4 ext, Sensation Intact, Cranial Nerves 3-12 NL Psych Exam: Positive: Mood NL, Oriented x 3 Vital Signs Vital Signs Date Time Temp Pulse Resp B/P (MAP) Pulse Ox O2 Delivery O2 Flow Rate FiO2 03/23/20 02:52 98.6 78 15 118/55 (76) 99 Room Air Laboratory Data Labs 24H Laboratory Tests 2 03/23/20 00:18: Immature Granulocyte % (Auto) 0.4, Neutrophils (%) (Auto) 87.8H, Lymphocytes (%) (Auto) 8.4L, Monocytes (%) (Auto) 2.9, Eosinophils (%) (Auto) 0.1, Basophils (%) (Auto) 0.4, Neutrophils # (Auto) 7.4, Lymphocytes # (Auto) 0.7L, Monocytes # (Auto) 0.2, Eosinophils # (Auto) 0.0, Basophils # (Auto) 0.0, Nucleated Red Blood Cells % (auto) 0.0, Lactic Acid Level 1.3, Total Bilirubin 0.7, Direct Bilirubin < 0.1, Aspartate Amino Transf (AST/SGOT) 28, Alanine Aminotransferase (ALT/SGPT) 55, Alkaline Phosphatase 190H, Total Protein 7.7, Albumin 4.0, Albumin/Globulin Ratio 1.1L, Lipase 159 03/23/20 01:38: POC Glucose (Misc Panel) 213H, POC Sodium (Misc Panel) 139, POC Potassium (Misc Panel) 3.5, POC Chloride (Misc Panel) 103, POC Total CO2 (Misc Panel) 24.0, POC Blood Urea Nitrogen (Misc Panel 11, POC Ionized Calcium (Misc Panel) 4.6, POC Creatinine (Misc Panel) 0.6, POC Hematocrit (Misc Panel) 36.0L 03/23/20 02:06: Urine Color YELLOW, Urine Appearance CLEAR, Urine pH 6.0, Urine Specific [place] >1.060H, Urine Protein NEGATIVE, Urine Glucose (UA) NEGATIVE, Urine Ketones NEGATIVE, Urine Blood NEGATIVE, Urine Nitrite NEGATIVE, Urine Bilirubin NEGATIVE, Urine Urobilinogen 0.2, Urine Leukocyte Esterase NEGATIVE, Urine WBC (Auto) 1, Urine RBC (Auto) 2, Urine Hyaline Casts (Auto) 0, Urine Bacteria (Auto) NEGATIVE, Urine Squamous Epithelial Cells 21, Urine Mucus (Auto) SMALL, Urine Sperm (Auto) CBC/BMP Laboratory Tests 03/23/20 00:18 Microbiology Microbiology 03/23/20 Blood Culture, Received Pending Problems (1) Intractable vomiting with nausea Status: Acute Problem Text: Admit patient to [facility] for observation Patient received Phenergan and held him in ED for nausea, vomiting Start IV fluid normal saline in the 100 mL per hour Phenergan 25 mg every 4 hours when necessary for nausea, vomiting Reglan 10 mg IV every 6 hours when necessary for nausea, vomiting Continue all home meds Nothing by mouth except ice chips DVT prophylaxis. Patient already on Lovenox Activity as tolerated (2) Intractable abdominal pain Status: Acute Problem Text: Supportive care pt received 1 dose of morphine in the ED with symptoms symptom relief Continue all home meds Plan / VTE VTE Prophylaxis Ordered?: Yes BETZY PURI MD Mar 23, 2020 03:31
[2020-03-23] MEDS: NS 1,000 ML IV SCH ×3 (03:53→23:45)
[2020-03-23 04:00] VITALS: BP 127/79
[2020-03-23] MEDS: METOCLOPRAMIDE INJ 10MG/2ML VIAL (J2765 PER 1) IV PRN ×2 (04:13→13:38)
[2020-03-23] MEDS ORDERED: diphenhydrAMINE 50MG/ML VIAL (J1200) IV PRN (04:30)
[2020-03-23] MEDS: ONDANSETRON 4MG/2ML VIAL IV PRN ×4 (04:54→21:05)
[2020-03-23 06:00] VITALS: BP 123/82
[2020-03-23] MEDS: PROMETHAZINE INJ 25 MG/ML VIAL (J2550) IV PRN ×3 (06:37→17:52)
[2020-03-23] MEDS: ENOXAPARIN 80MG/0.8ML SYRINGE (J1650 PER 10MG) SC SCH ×2 (08:53→21:05)
[2020-03-23] MEDS: FLUoxetine 20 MG CAP PO SCH (08:54)
[2020-03-23] MEDS ORDERED: PANTOPRAZOLE 40MG TAB (PROTONIX) PO SCH (09:00)
[2020-03-23] MEDS ORDERED: HEPARIN SOD (PORCINE) 5000UNITS/ML VIAL (J1644 PER 1000UNITS) SC SCH (09:00)
[2020-03-23] MEDS: PANTOPRAZOLE 40MG VIAL (C9113 PER 1) IV SCH ×2 (11:09→21:05)
[2020-03-23] MEDS: MORPHINE 2 MG/ML 1ML VIAL (J2270) IV PRN ×3 (11:09→21:05)
[2020-03-23] MEDS: SUCRALFATE SUSP 1GM/10ML UD PO SCH ×2 (13:38→21:04)
[2020-03-23 14:00] VITALS: BP 130/80
[2020-03-23] MEDS ORDERED: FAT EMULSION IV 20% 500 ML IV SCH (18:00)
[2020-03-23] MEDS ORDERED: MULTIVITAMIN -ADULT INJECTION 10 ML, CR/CU/SE/MN/ZN INJ 1 ML in AMINO AC/ELECTROLYTE/DE... IV SCH (18:00)
[2020-03-23] MEDS: HumaLOG INSULIN (NovoLOG) PER UNIT SC SCH (18:34)
[2020-03-23 21:07] VITALS: BP 132/65
[2020-03-24] MEDS: HumaLOG INSULIN (NovoLOG) PER UNIT SC SCH ×3 (00:27→12:57)
[2020-03-24] MEDS: SUCRALFATE SUSP 1GM/10ML UD PO SCH ×2 (05:03→12:57)
[2020-03-24] MEDS: ONDANSETRON 4MG/2ML VIAL IV PRN ×2 (05:04→12:56)
[2020-03-24] MEDS: MORPHINE 2 MG/ML 1ML VIAL (J2270) IV PRN ×2 (05:04→09:30)
[2020-03-24 06:02] VITALS: BP 131/65
[2020-03-24 07:02] LABS: HEMATOCRIT 34.4 % (36.0-47.0); HEMOGLOBIN 10.9 g/dl (12.0-15.5); MEAN CORPUSCULAR HEMOGLOBIN 26.3 pg (27.0-33.0); MEAN CORPUSCULAR HGB CONC 31.7 g/dl (32.0-36.5); MEAN CORPUSCULAR VOLUME 83.1 fl (80.0-96.0); PLATELET COUNT, AUTOMATED 341 10^3/uL (150-450); RED BLOOD COUNT 4.14 10^6/uL (4.00-5.40)
[2020-03-24 07:27] LABS: ALBUMIN 3.4 GM/DL (3.2-5.2); ALT/SGPT 34 U/L (12-78); BILIRUBIN,TOTAL 0.6 MG/DL (0.2-1.0); BLOOD UREA NITROGEN 15 MG/DL (7-18); CALCIUM LEVEL 8.6 MG/DL (8.5-10.1); CARBON DIOXIDE LEVEL 24 MEQ/L (21-32); CHLORIDE LEVEL 105 MEQ/L (98-107); CREATININE FOR GFR 0.63 MG/DL (0.55-1.30); GLOMERULAR FILTRATION RATE > 60.0 (>58); GLUCOSE, FASTING 156 MG/DL (70-100); POTASSIUM SERUM 3.4 MEQ/L (3.5-5.1); SODIUM LEVEL 138 MEQ/L (136-145); TOTAL PROTEIN 6.9 GM/DL (6.4-8.2)
[2020-03-24] MEDS: PANTOPRAZOLE 40MG VIAL (C9113 PER 1) IV SCH (08:30)
[2020-03-24] MEDS: METOCLOPRAMIDE INJ 10MG/2ML VIAL (J2765 PER 1) IV PRN (08:30)
[2020-03-24] MEDS: FLUoxetine 20 MG CAP PO SCH ×2 (08:30→08:34)
[2020-03-24] MEDS: ENOXAPARIN 80MG/0.8ML SYRINGE (J1650 PER 10MG) SC SCH (08:31)
[2020-03-24] MEDS: NS 1,000 ML IV SCH (08:33)
[2020-03-24] MEDS: PROMETHAZINE INJ 25 MG/ML VIAL (J2550) IV PRN (09:31)
--- NOTE | 2020-03-25 15:10 | DS.PDOC ---
Discharge Summary General Date of Admission Mar 22, 2020 at 23:40 Date of Discharge 03/24/20 Discharge Summary PROCEDURES PERFORMED DURING STAY: [None]. DISCHARGE DIAGNOSES: HISTORY OF GASTRIC BYPASS SURGERY WITH COMPLICATIONS; SHORT GUT SYNDROME, GASTROPARESIS, GERD - DR. CARRILLO AND DR. CARNES FAILURE TO THRIVE, ON CHRONIC TPN; HAS JTUBE BUT NOT ABSORBING, USING FOR MEDS ONLY HISTORY OF SERRATIA CENTRAL LINE INFECTION - PREV SAW DR. SILVA CHRONIC BACK AND ABDOMINAL PAIN - PALLIATIVE CARE, N. WALKER DEPRESSION AND ANXIETY CHRONIC IRON DEFICIENCY ANEMIA PROTEIN S DEFICIENCY; PREVIOUSLY ON LOVENOX HISTORY OF THROMBOCYTOSIS OF CENTRAL LINE COMPLICATIONS/CHIEF COMPLAINT: Intractable Vomiting With Nausea. Hospital Course: Patient is well known to medical service with a very extensive medical history. Admitted for abdominal pain, nausea. Imaging showed no acute findings, treated for symptom control. Hospital stay otherwise unremarkable and discharged home with outpatient follow up. DISCHARGE MEDICATIONS: Please see below. ALLERGIES: Please see below. PHYSICAL EXAMINATION ON DISCHARGE: VITAL SIGNS: Please see below. GENERAL: NAD, lying comfortably in bed LABORATORY DATA: Please see below. ACTIVITY: [As tolerated]. DISPOSITION: 01 Home, Self-Care. DISCHARGE INSTRUCTIONS: 1. PCP in 3-5 days DISCHARGE CONDITION: [Stable]. TIME SPENT ON DISCHARGE: 31 minutes. Vital Signs/I&Os Vital Signs Date Time Temp Pulse Resp B/P (MAP) Pulse Ox O2 Delivery O2 Flow Rate FiO2 03/24/20 09:40 18 Room Air 03/24/20 06:02 98.7 79 131/65 (87) 97 I&O- Last 24 Hours up to 6 AM 03/25/20 06:00 Intake Total 0 ml Output Total 0 ml Balance 0 ml Microbiology Microbiology 03/23/20 Blood Culture - Preliminary, Resulted No Growth after 48 hours. All Specime... 03/23/20 Blood Culture - Preliminary, Resulted No Growth after 48 hours. All Specime... Discharge Medications Scheduled Enoxaparin Sodium (Enoxaparin Sodium) 80 Mg/0.8 Ml Syringe, 70 MG SC Q12H, (Reported) Fluoxetine Hcl (Fluoxetine HCl) 20 Mg Capsule, 20 MG PO DAILY, (Reported) Heparin Sodium,Porcine/Pf (Heparin 1,000 Unit/10 (100/ml)) 1,000 Unit/10 Ml Syringe, 500 UNIT IV DAILY, (Reported) THROUGH PICC LINE Lipase/Protease/Amylase (Hue Bagley 3,000 Units Capsule) 1 Each Capsule.dr, 1 CAP PO QID, (Reported) Multivit Infusn,Adult 4,Vit K (Infuvite) 10 Ml Vial, 1 TAB PO QHS, (Reported) Pantoprazole Sodium (Pantoprazole Sodium) 40 Mg Vial, 40 MG SC BID, (Reported) THROUGH PICC LINE Scheduled PRN Acetaminophen (Acetaminophen) 500 Mg Tablet, 500 MG PO Q6H PRN for PAIN, (Reported) Albuterol Sulf (Albuterol Sulfate) 2.5 Mg/3 Ml Vial.neb, 2.5 MG INH Q4H PRN for SHORTNESS OF BREATH, (Reported) Albuterol Sulfate (Ventolin Hfa) 18 Gm Hfa.aer.ad, 2 PUFF INH Q6H PRN for SHORTNESS OF BREATH, (Reported) Diphenhydramine HCl (Diphenhydramine HCl) 50 Mg/1 Ml Vial, 50 MG SC DAILY PRN for SEVERE NAUSEA, (Reported) THROUGH PICC LINE Morphine Sulfate (Morphine Sulfate Concentrate) 100 Mg/5 Ml Solution, 1 ML PO Q4H PRN for PAIN, (Reported) Ondansetron (Ondansetron HCl) 2 Mg/1 Ml Vial, 2 MG IV BID PRN for NAUSEA OR VOMITING, (Reported) THROUGH PICC LINE Promethazine HCl (Phenadoz) 25 Mg Sup, 25 MG NJ Q12H PRN for NAUSEA OR VOMITING, (Reported) Zolpidem Tartrate (Ambien) 5 Mg Tablet, 5 MG PO QHS PRN for sleep, (Reported) Allergies Coded Allergies: Sulfa (Sulfonamide Antibiotics) (Verified Allergy, Severe, RESP. PROBLEMS, SWELLING, HIVES, 01/14/19) butorphanol (Verified Allergy, Severe, HIVES/RESP. PROBLEMS (PERCOCET AND TYL#3 OK), 01/14/19) HAS HAD MORPHINE AND DILAUDID IN THE PAST levofloxacin (Verified Allergy, Severe, THROAT SWELLING/HIVES, 01/14/19) tomato (Verified Allergy, Severe, RESP. PROBLEMS, HIVES, 01/14/19) tramadol (Verified Allergy, Severe, SOB - HAS HAD MORPHINE AND DILAUDID IN THE PAST, 01/14/19) scopolamine (Verified Adverse Reaction, Intermediate, VISION LOSS, 01/14/19) NSAIDS (Non-Steroidal Anti-Inflamma (Verified Adverse Reaction, Mild, GASTRIC BYPASS, 01/14/19) GARTH ALVARADO MD Mar 25, 2020 15:10
== END 2020-03-24 14:15 | disposition home or self-care (01) ==
LOC: M ED 23:39 → M ED INP 23:40 → ENRESERV 03-23 03:43 → M MS5PR 03-23 04:02
PROVIDERS: ADMIT Internal Medicine; ATTEND Internal Medicine
DX: K91.2 Postsurgical malabsorption, not elsewhere classified (principal); K95.89 Other complications of other bariatric procedure; R62.7 Adult failure to thrive; R11.2 Nausea with vomiting, unspecified; K31.84 Gastroparesis; R10.9 Unspecified abdominal pain; Z98.84 Bariatric surgery status; K21.9 Gastro-esophageal reflux disease without esophagitis; F32.9 Major depressive disorder, single episode, unspecified; F41.9 Anxiety disorder, unspecified; Z93.1 Gastrostomy status; Z79.01 Long term (current) use of anticoagulants; Z88.2 Allergy status to sulfonamides; Z88.1 Allergy status to other antibiotic agents; Z88.8 Allergy status to other drugs, medicaments and biological substances
CPT/HCPCS: 36415; 71046; 74177; 80047; 80053; 80076; 81001; 83605; 83690; 83735; 85025; 85027; 87040; 96361; 96365; 96366; 96372; 96375; 96376; 99284; C9113; J1200; J1630; J1642; J1650; J2270; J2405; J2765

== ENCOUNTER → 2020-03-27 | Outpatient (REF) | payer BC, OTHER ==
[~2020-03-27] MED LIST changes: +ENOX80IN3 SC; +MORP1SOL PO; +ONDA2VL IV
[2020-03-27 10:21] LABS: BASO # 0.1 10^3/uL (0.0-0.2); BASO % 0.5 % (0.0-1.0); EOS # 0.1 10^3/uL (0.0-0.5); EOS % 0.7 % (0.0-3.0); HEMATOCRIT 43.9 % (36.0-47.0); HEMOGLOBIN 14.1 g/dl (12.0-15.5); LYMPH # 2.1 10^3/uL (1.5-5.0); LYMPH % 19.6 % (24.0-44.0); MEAN CORPUSCULAR HEMOGLOBIN 25.4 pg (27.0-33.0); MEAN CORPUSCULAR HGB CONC 32.1 g/dl (32.0-36.5); MEAN CORPUSCULAR VOLUME 79.1 fl (80.0-96.0); MONO # 1.4 10^3/uL (0.0-0.8); MONO % 13.4 % (0.0-5.0); PLATELET COUNT, AUTOMATED 569 10^3/uL (150-450); RED BLOOD COUNT 5.55 10^6/uL (4.00-5.40); WHITE BLOOD COUNT 10.7 10^3/uL (4.0-10.0)
[2020-03-27 11:59] LABS: ALBUMIN 4.3 GM/DL (3.2-5.2); ALT/SGPT 35 U/L (12-78); BILIRUBIN,TOTAL 1.3 MG/DL (0.2-1.0); BLOOD UREA NITROGEN 18 MG/DL (7-18); CALCIUM LEVEL 9.5 MG/DL (8.5-10.1); CARBON DIOXIDE LEVEL 27 MEQ/L (21-32); CHLORIDE LEVEL 100 MEQ/L (98-107); CREATININE FOR GFR 0.84 MG/DL (0.55-1.30); GLOMERULAR FILTRATION RATE > 60.0 (>58); GLUCOSE, FASTING 136 MG/DL (70-100); MAGNESIUM LEVEL 2.5 MG/DL (1.8-2.4); PHOSPHORUS LEVEL 4.6 MG/DL (2.5-4.9); POTASSIUM SERUM 3.4 MEQ/L (3.5-5.1); SODIUM LEVEL 136 MEQ/L (136-145); TOTAL PROTEIN 7.8 GM/DL (6.4-8.2); TRIGLYCERIDES LEVEL 123 MG/DL (<150)
[2020-03-27 12:29] LABS: PREALBUMIN 41.6 MG/DL (20.0-40.0)
== END ==
LOC: M LAB REF 09:40
PROVIDERS: ATTEND Surgery
DX: Z98.84 Bariatric surgery status (principal)

== ENCOUNTER → 2020-03-28 | Outpatient (REF) | payer OTHER ==
[2020-03-28 17:39] LABS: BASO # 0.1 10^3/uL (0.0-0.2); BASO % 0.8 % (0.0-1.0); EOS # 0.2 10^3/uL (0.0-0.5); EOS % 1.8 % (0.0-3.0); HEMATOCRIT 40.5 % (36.0-47.0); HEMOGLOBIN 12.9 g/dl (12.0-15.5); LYMPH # 3.3 10^3/uL (1.5-5.0); LYMPH % 31.7 % (24.0-44.0); MEAN CORPUSCULAR HEMOGLOBIN 25.7 pg (27.0-33.0); MEAN CORPUSCULAR HGB CONC 31.9 g/dl (32.0-36.5); MEAN CORPUSCULAR VOLUME 80.8 fl (80.0-96.0); MONO # 1.1 10^3/uL (0.0-0.8); MONO % 10.2 % (0.0-5.0); NEUTROPHILS # 5.8 10^3/uL (1.5-8.5); NEUTROPHILS % 54.7 % (36.0-66.0); PLATELET COUNT, AUTOMATED 475 10^3/uL (150-450); RED BLOOD COUNT 5.01 10^6/uL (4.00-5.40); WHITE BLOOD COUNT 10.6 10^3/uL (4.0-10.0)
[2020-03-28 19:54] LABS: ALBUMIN 4.2 GM/DL (3.2-5.2); ALT/SGPT 28 U/L (12-78); BILIRUBIN,DIRECT 0.2 MG/DL (0.0-0.2); BILIRUBIN,TOTAL 0.9 MG/DL (0.2-1.0); BLOOD UREA NITROGEN 9 MG/DL (7-18); C REACTIVE PROTEIN QUANTITATIV < 0.30 MG/DL (0.00-0.30); CARBON DIOXIDE LEVEL 24 MEQ/L (21-32); CHLORIDE LEVEL 101 MEQ/L (98-107); CREATININE FOR GFR 0.88 MG/DL (0.55-1.30); GLOMERULAR FILTRATION RATE > 60.0 (>58); GLUCOSE, FASTING 109 MG/DL (70-100); POTASSIUM SERUM 2.9 MEQ/L (3.5-5.1); SODIUM LEVEL 136 MEQ/L (136-145); TOTAL PROTEIN 7.6 GM/DL (6.4-8.2)
== END ==
LOC: M LAB REF 16:56
PROVIDERS: ATTEND Family Medicine
DX: D72.829 Elevated white blood cell count, unspecified (principal); R17 Unspecified jaundice

== ENCOUNTER → 2020-03-30 | Outpatient (REF) | payer OTHER ==
[2020-03-30 17:31] LABS: BLOOD UREA NITROGEN 10 MG/DL (7-18); CALCIUM LEVEL 8.5 MG/DL (8.5-10.1); CARBON DIOXIDE LEVEL 27 MEQ/L (21-32); CHLORIDE LEVEL 102 MEQ/L (98-107); CREATININE FOR GFR 0.75 MG/DL (0.55-1.30); GLOMERULAR FILTRATION RATE > 60.0 (>58); GLUCOSE, FASTING 116 MG/DL (70-100); POTASSIUM SERUM 3.4 MEQ/L (3.5-5.1); SODIUM LEVEL 140 MEQ/L (136-145)
== END ==
LOC: M LAB REF 16:48
PROVIDERS: ATTEND Family Medicine
DX: E87.6 Hypokalemia (principal)

== ENCOUNTER → 2020-04-02 | Outpatient (REF) | payer BC, OTHER ==
[2020-04-02 17:29] LABS: BASO % 0.3 % (0.0-1.0); EOS # 0.5 10^3/uL (0.0-0.5); EOS % 5.2 % (0.0-3.0); HEMATOCRIT 32.2 % (36.0-47.0); HEMOGLOBIN 9.9 g/dl (12.0-15.5); LYMPH # 1.8 10^3/uL (1.5-5.0); LYMPH % 20.4 % (24.0-44.0); MEAN CORPUSCULAR HEMOGLOBIN 26.3 pg (27.0-33.0); MEAN CORPUSCULAR HGB CONC 30.7 g/dl (32.0-36.5); MEAN CORPUSCULAR VOLUME 85.4 fl (80.0-96.0); MONO # 0.7 10^3/uL (0.0-0.8); MONO % 7.8 % (0.0-5.0); NEUTROPHILS # 5.9 10^3/uL (1.5-8.5); PLATELET COUNT, AUTOMATED 293 10^3/uL (150-450); RED BLOOD COUNT 3.77 10^6/uL (4.00-5.40)
[2020-04-02 17:46] LABS: ALBUMIN 3.3 GM/DL (3.2-5.2); ALT/SGPT 16 U/L (12-78); BILIRUBIN,TOTAL 0.4 MG/DL (0.2-1.0); BLOOD UREA NITROGEN 6 MG/DL (7-18); CALCIUM LEVEL 8.6 MG/DL (8.5-10.1); CARBON DIOXIDE LEVEL 27 MEQ/L (21-32); CHLORIDE LEVEL 109 MEQ/L (98-107); CREATININE FOR GFR 0.92 MG/DL (0.55-1.30); GLOMERULAR FILTRATION RATE > 60.0 (>58); GLUCOSE, FASTING 87 MG/DL (70-100); MAGNESIUM LEVEL 2.1 MG/DL (1.8-2.4); PHOSPHORUS LEVEL 4.2 MG/DL (2.5-4.9); POTASSIUM SERUM 3.9 MEQ/L (3.5-5.1); PREALBUMIN 27.1 MG/DL (20.0-40.0); SODIUM LEVEL 140 MEQ/L (136-145); TOTAL PROTEIN 5.9 GM/DL (6.4-8.2)
== END ==
LOC: M LAB 17:06
PROVIDERS: ATTEND Surgery
DX: Z01.89 Encounter for other specified special examinations (principal)

== ENCOUNTER → 2020-04-05 | Outpatient (REF) | payer BC, OTHER ==
[~2020-04-05] MED LIST changes: +CREO3000 GT; -CREO3000 PO; +FLUO20CA20 GT; -FLUO20CA20 PO; +LEVE500T5 GT; +METH-1164; -METH1TAB40; +OXYC1CON PO; +PANT40TA29 PO; -PANT40TA3 PO; +ZOLP10TA2 GT; -ZOLP6.25 PO; +ZOLP6.2517 PO; +[UNRECOGNIZED DRUG - CODE] IV; +[UNRECOGNIZED DRUG - CODE] IV; -[UNRECOGNIZED DRUG - CODE] PO; -[UNRECOGNIZED DRUG - CODE] SC
== END ==
LOC: M LAB REF 20:56
PROVIDERS: ATTEND Internal Medicine Gastroenterology
DX: Z98.84 Bariatric surgery status (principal); K31.84 Gastroparesis; K21.0 Gastro-esophageal reflux disease with esophagitis

== ENCOUNTER → 2020-04-05 | Outpatient (REF) | payer BC, OTHER ==
[2020-04-05 21:25] LABS: BASO % 0.5 % (0.0-1.0); EOS # 0.4 10^3/uL (0.0-0.5); EOS % 5.9 % (0.0-3.0); HEMATOCRIT 31.6 % (36.0-47.0); HEMOGLOBIN 9.7 g/dl (12.0-15.5); LYMPH # 1.7 10^3/uL (1.5-5.0); LYMPH % 26.7 % (24.0-44.0); MEAN CORPUSCULAR HEMOGLOBIN 26.3 pg (27.0-33.0); MEAN CORPUSCULAR HGB CONC 30.7 g/dl (32.0-36.5); MEAN CORPUSCULAR VOLUME 85.6 fl (80.0-96.0); MONO # 0.6 10^3/uL (0.0-0.8); MONO % 9.6 % (0.0-5.0); NEUTROPHILS # 3.7 10^3/uL (1.5-8.5); PLATELET COUNT, AUTOMATED 271 10^3/uL (150-450); RED BLOOD COUNT 3.69 10^6/uL (4.00-5.40); WHITE BLOOD COUNT 6.5 10^3/uL (4.0-10.0)
[2020-04-05 21:57] LABS: ALBUMIN 3.2 GM/DL (3.2-5.2); ALT/SGPT 25 U/L (12-78); BILIRUBIN,TOTAL 0.6 MG/DL (0.2-1.0); BLOOD UREA NITROGEN 5 MG/DL (7-18); CALCIUM LEVEL 8.3 MG/DL (8.5-10.1); CARBON DIOXIDE LEVEL 30 MEQ/L (21-32); CHLORIDE LEVEL 106 MEQ/L (98-107); CREATININE FOR GFR 0.67 MG/DL (0.55-1.30); GLOMERULAR FILTRATION RATE > 60.0 (>58); GLUCOSE, FASTING 98 MG/DL (70-100); MAGNESIUM LEVEL 2.1 MG/DL (1.8-2.4); PHOSPHORUS LEVEL 4.4 MG/DL (2.5-4.9); POTASSIUM SERUM 4.2 MEQ/L (3.5-5.1); PREALBUMIN 22.4 MG/DL (20.0-40.0); SODIUM LEVEL 139 MEQ/L (136-145); TRIGLYCERIDES LEVEL 146 MG/DL (<150)
== END ==
LOC: M SHH 20:45
PROVIDERS: ATTEND Surgery
DX: Z01.89 Encounter for other specified special examinations (principal)

== ENCOUNTER → 2020-04-12 | Outpatient (POV) | payer BC, OTHER ==
[~2020-04-12] MED LIST changes: -CREO3000 GT; +CREO3000 PO; -FLUO20CA20 GT; +FLUO20CA20 PO; -LEVE500T5 GT; -METH-1164; +METH1TAB40; -OXYC1CON PO; -PANT40TA29 PO; +PANT40TA3 PO; -ZOLP10TA2 GT; +ZOLP6.25 PO; -ZOLP6.2517 PO; -[UNRECOGNIZED DRUG - CODE] IV; -[UNRECOGNIZED DRUG - CODE] IV; +[UNRECOGNIZED DRUG - CODE] PO; +[UNRECOGNIZED DRUG - CODE] SC
--- NOTE | 2020-04-13 12:15 | IRPN ---
[facility] IR Progress Note IR Progress Note DATE: Apr 12, 2020 FOLLOW-UP: Skin inflammation around stitch sites of the Gal[place] catheter. Patient saw family practitioner and stitches were removed. Patient states it felt slightly better since the stitches were removed. No fevers or chills. Describes little brownish discharge from the tunnel site. No tenderness over the tunnel. TPN 14 hours a day. Patient reports she flushes the catheter 4 times a day with sterile saline. ON EXAMINATION: I reviewed the images sent to me by Dr. Walton. Redness and i nflammation around the 2 stitch sites. No betsey pus coming from the tunnel. IMPRESSION: Patient with long-term Galicia catheter in place for TPN treatment. No systemic signs of infection. Advised patient to avoid alcohol or Betadine at the site. Site should be cleaned with saltwater for dressing changes. Avoid other ointments for the skin. Avoid scrubbing the area. Patient to follow-up with us or primary care if there is any change or worsening of symptoms. Thank you for this referral Allergies Coded Allergies: Sulfa (Sulfonamide Antibiotics) (Verified Allergy, Severe, RESP. PROBLEMS, SWELLING, HIVES, 01/14/19) butorphanol (Verified Allergy, Severe, HIVES/RESP. PROBLEMS (PERCOCET AND TYL#3 OK), 01/14/19) HAS HAD MORPHINE AND DILAUDID IN THE PAST levofloxacin (Verified Allergy, Severe, THROAT SWELLING/HIVES, 01/14/19) tomato (Verified Allergy, Severe, RESP. PROBLEMS, HIVES, 01/14/19) tramadol (Verified Allergy, Severe, SOB - HAS HAD MORPHINE AND DILAUDID IN THE PAST, 01/14/19) scopolamine (Verified Adverse Reaction, Intermediate, VISION LOSS, 01/14/19) NSAIDS (Non-Steroidal Anti-Inflamma (Verified Adverse Reaction, Mild, GASTRIC BYPASS, 01/14/19) KARSTEN QUACH MD Apr 13, 2020 12:15
== END ==
LOC: M TMIRPOV 08:20
PROVIDERS: ATTEND Radiology Diagnostic Radiology
DX: Z45.2 Encounter for adjustment and management of vascular access device (principal); Z88.2 Allergy status to sulfonamides; Z88.8 Allergy status to other drugs, medicaments and biological substances

== ENCOUNTER → 2020-04-17 | Outpatient (REF) | payer BC, OTHER ==
[2020-04-17 19:04] LABS: BASO % 0.4 % (0.0-1.0); EOS # 0.1 10^3/uL (0.0-0.5); EOS % 1.6 % (0.0-3.0); HEMATOCRIT 34.8 % (36.0-47.0); HEMOGLOBIN 10.7 g/dl (12.0-15.5); LYMPH # 1.6 10^3/uL (1.5-5.0); LYMPH % 20.3 % (24.0-44.0); MEAN CORPUSCULAR HEMOGLOBIN 26.1 pg (27.0-33.0); MEAN CORPUSCULAR HGB CONC 30.7 g/dl (32.0-36.5); MEAN CORPUSCULAR VOLUME 84.9 fl (80.0-96.0); MONO # 0.6 10^3/uL (0.0-0.8); MONO % 7.1 % (0.0-5.0); NEUTROPHILS # 5.4 10^3/uL (1.5-8.5); NEUTROPHILS % 70.3 % (36.0-66.0); PLATELET COUNT, AUTOMATED 390 10^3/uL (150-450); WHITE BLOOD COUNT 7.7 10^3/uL (4.0-10.0)
[2020-04-17 19:28] LABS: ALBUMIN 3.7 GM/DL (3.2-5.2); ALT/SGPT 17 U/L (12-78); BILIRUBIN,TOTAL 0.4 MG/DL (0.2-1.0); BLOOD UREA NITROGEN 6 MG/DL (7-18); CARBON DIOXIDE LEVEL 25 MEQ/L (21-32); CHLORIDE LEVEL 109 MEQ/L (98-107); GLOMERULAR FILTRATION RATE > 60.0 (>58); GLUCOSE, FASTING 133 MG/DL (70-100); MAGNESIUM LEVEL 2.1 MG/DL (1.8-2.4); PHOSPHORUS LEVEL 4.5 MG/DL (2.5-4.9); POTASSIUM SERUM 3.6 MEQ/L (3.5-5.1); PREALBUMIN 33.1 MG/DL (20.0-40.0); SODIUM LEVEL 140 MEQ/L (136-145); TOTAL PROTEIN 6.9 GM/DL (6.4-8.2)
== END ==
LOC: M SHH 18:45
PROVIDERS: ATTEND Surgery
DX: Z01.89 Encounter for other specified special examinations (principal)

== ENCOUNTER → 2020-04-30 | Outpatient (REF) | payer OTHER ==
[~2020-04-30] MED LIST changes: +CREO3000 GT; -CREO3000 PO; +FLUO20CA20 GT; -FLUO20CA20 PO; +LEVE500T5 GT; +OXYC1CON PO; +PANT40TA29 PO; -PANT40TA3 PO; +ZOLP10TA2 GT; -ZOLP6.25 PO; +ZOLP6.2517 PO; +[UNRECOGNIZED DRUG - CODE] IV; +[UNRECOGNIZED DRUG - CODE] IV; -[UNRECOGNIZED DRUG - CODE] PO; -[UNRECOGNIZED DRUG - CODE] SC
[2020-04-30 13:29] LABS: BASO % 0.6 % (0.0-1.0); EOS # 0.2 10^3/uL (0.0-0.5); EOS % 4.2 % (0.0-3.0); HEMATOCRIT 33.3 % (36.0-47.0); HEMOGLOBIN 10.3 g/dl (12.0-15.5); LYMPH # 1.3 10^3/uL (1.5-5.0); LYMPH % 23.8 % (24.0-44.0); MEAN CORPUSCULAR HEMOGLOBIN 26.8 pg (27.0-33.0); MEAN CORPUSCULAR HGB CONC 30.9 g/dl (32.0-36.5); MEAN CORPUSCULAR VOLUME 86.5 fl (80.0-96.0); MONO # 0.6 10^3/uL (0.0-0.8); MONO % 10.6 % (0.0-5.0); NEUTROPHILS # 3.2 10^3/uL (1.5-8.5); NEUTROPHILS % 60.6 % (36.0-66.0); PLATELET COUNT, AUTOMATED 256 10^3/uL (150-450); RED BLOOD COUNT 3.85 10^6/uL (4.00-5.40); WHITE BLOOD COUNT 5.3 10^3/uL (4.0-10.0)
[2020-04-30 13:40] LABS: ALBUMIN 3.7 GM/DL (3.2-5.2); ALT/SGPT 62 U/L (12-78); BILIRUBIN,TOTAL 0.4 MG/DL (0.2-1.0); BLOOD UREA NITROGEN 7 MG/DL (7-18); CALCIUM LEVEL 8.8 MG/DL (8.5-10.1); CARBON DIOXIDE LEVEL 29 MEQ/L (21-32); CHLORIDE LEVEL 105 MEQ/L (98-107); CREATININE FOR GFR 0.72 MG/DL (0.55-1.30); GLOMERULAR FILTRATION RATE > 60.0 (>58); GLUCOSE, FASTING 91 MG/DL (70-100); MAGNESIUM LEVEL 2.1 MG/DL (1.8-2.4); PHOSPHORUS LEVEL 4.7 MG/DL (2.5-4.9); POTASSIUM SERUM 4.2 MEQ/L (3.5-5.1); PREALBUMIN 27.2 MG/DL (20.0-40.0); SODIUM LEVEL 138 MEQ/L (136-145); TOTAL PROTEIN 6.5 GM/DL (6.4-8.2); TRIGLYCERIDES LEVEL 137 MG/DL (<150)
== END ==
LOC: M LAB REF 13:14
PROVIDERS: ATTEND Surgery
DX: Z79.899 Other long term (current) drug therapy (principal)

== ENCOUNTER → 2020-06-01 | Outpatient (CLI) | payer BC, OTHER ==
--- NOTE | 2020-07-13 09:36 | REP ---
NUCLEAR GASTRIC EMPTYING SCAN: HISTORY: Gastroparesis after gastric bypass reversal. TECHNIQUE: Following the oral administration of 1.06 mCi technetium-99m sulfur colloid, 2 scrambled eggs and 6 ounces of water, multiple images of the upper abdomen are performed in the anterior and posterior projections for a period of 90 minutes. FINDINGS: Gastric activity is measured. At the end of 90 minutes, no activity has emptied from the stomach. The findings are compatible with gastroparesis. MTDD
== END ==
LOC: M RAD 08:00
PROVIDERS: ATTEND Surgery
DX: K31.84 Gastroparesis (principal); Z98.84 Bariatric surgery status

== ENCOUNTER → 2020-06-02 | Outpatient (REF) | payer OTHER, BC ==
[2020-07-06 13:10] LABS: BASO # 0.1 10^3/uL (0.0-0.2); BASO % 0.8 % (0.0-1.0); EOS # 0.3 10^3/uL (0.0-0.5); EOS % 3.5 % (0.0-3.0); HEMATOCRIT 25.4 % (36.0-47.0); LYMPH # 1.9 10^3/uL (1.5-5.0); LYMPH % 25.7 % (24.0-44.0); MEAN CORPUSCULAR HEMOGLOBIN 26.6 pg (27.0-33.0); MEAN CORPUSCULAR HGB CONC 31.5 g/dl (32.0-36.5); MEAN CORPUSCULAR VOLUME 84.4 fl (80.0-96.0); MONO # 0.7 10^3/uL (0.0-0.8); MONO % 9.6 % (0.0-5.0); NEUTROPHILS # 4.3 10^3/uL (1.5-8.5); PLATELET COUNT, AUTOMATED 448 10^3/uL (150-450); RED BLOOD COUNT 3.01 10^6/uL (4.00-5.40); WHITE BLOOD COUNT 7.2 10^3/uL (4.0-10.0)
[2020-07-20 08:38] LABS: ALBUMIN 3.6 GM/DL (3.2-5.2); ALT/SGPT 20 U/L (12-78); BILIRUBIN,TOTAL 0.3 MG/DL (0.2-1.0); BLOOD UREA NITROGEN 8 MG/DL (7-18); CALCIUM LEVEL 8.8 MG/DL (8.5-10.1); CARBON DIOXIDE LEVEL 28 MEQ/L (21-32); CHLORIDE LEVEL 107 MEQ/L (98-107); CREATININE FOR GFR 0.82 MG/DL (0.55-1.30); GLOMERULAR FILTRATION RATE > 60.0 (>58); GLUCOSE, FASTING 87 MG/DL (70-100); MAGNESIUM LEVEL 2.4 MG/DL (1.8-2.4); PHOSPHORUS LEVEL 5.1 MG/DL (2.5-4.9); POTASSIUM SERUM 3.8 MEQ/L (3.5-5.1); SODIUM LEVEL 141 MEQ/L (136-145); TOTAL PROTEIN 6.5 GM/DL (6.4-8.2)
== END ==
LOC: M LAB REF 15:08
PROVIDERS: ATTEND Surgery
DX: Z79.899 Other long term (current) drug therapy (principal)

== ENCOUNTER → 2020-06-17 | Outpatient (REF) | payer OTHER, BC ==
[2020-06-17 14:49] LABS: BASO # 0.1 10^3/uL (0.0-0.2); BASO % 0.9 % (0.0-1.0); EOS # 0.4 10^3/uL (0.0-0.5); EOS % 6.4 % (0.0-3.0); HEMOGLOBIN 8.1 g/dl (12.0-15.5); LYMPH # 1.7 10^3/uL (1.5-5.0); LYMPH % 31.3 % (24.0-44.0); MEAN CORPUSCULAR HEMOGLOBIN 25.7 pg (27.0-33.0); MEAN CORPUSCULAR VOLUME 85.7 fl (80.0-96.0); MONO # 0.5 10^3/uL (0.0-0.8); MONO % 9.9 % (0.0-5.0); NEUTROPHILS # 2.8 10^3/uL (1.5-8.5); NEUTROPHILS % 51.3 % (36.0-66.0); PLATELET COUNT, AUTOMATED 268 10^3/uL (150-450); RED BLOOD COUNT 3.15 10^6/uL (4.00-5.40); WHITE BLOOD COUNT 5.5 10^3/uL (4.0-10.0)
[2020-06-17 15:21] LABS: ALBUMIN 3.7 GM/DL (3.2-5.2); ALT/SGPT 21 U/L (12-78); BILIRUBIN,TOTAL 0.4 MG/DL (0.2-1.0); BLOOD UREA NITROGEN 11 MG/DL (7-18); CALCIUM LEVEL 8.3 MG/DL (8.5-10.1); CARBON DIOXIDE LEVEL 28 MEQ/L (21-32); CHLORIDE LEVEL 105 MEQ/L (98-107); GLOMERULAR FILTRATION RATE > 60.0 (>58); GLUCOSE, FASTING 71 MG/DL (70-100); MAGNESIUM LEVEL 2.2 MG/DL (1.8-2.4); PHOSPHORUS LEVEL 3.9 MG/DL (2.5-4.9); POTASSIUM SERUM 4.2 MEQ/L (3.5-5.1); PREALBUMIN 31.3 MG/DL (20.0-40.0); SODIUM LEVEL 140 MEQ/L (136-145); TOTAL PROTEIN 6.5 GM/DL (6.4-8.2); TRIGLYCERIDES LEVEL 204 MG/DL (<150)
[2020-06-23 11:23] LABS: FERRITIN 7 NG/ML (8-252); IRON (FE) 23 UG/DL (50-170); PERCENT SATURATION 5.5 % (13.2-45.0); TOTAL IRON BINDING CAPACITY 419 UG/DL (250-450)
== END ==
LOC: M LAB REF 13:00
PROVIDERS: ATTEND Surgery
DX: Z51.81 Encounter for therapeutic drug level monitoring (principal); Z79.899 Other long term (current) drug therapy

== ENCOUNTER → 2020-06-23 | Outpatient (REF) | payer OTHER ==
[2020-06-23 19:53] LABS: BASO % 0.5 % (0.0-1.0); EOS # 0.3 10^3/uL (0.0-0.5); EOS % 8.1 % (0.0-3.0); HEMATOCRIT 26.3 % (36.0-47.0); HEMOGLOBIN 7.7 g/dl (12.0-15.5); LYMPH # 1.3 10^3/uL (1.5-5.0); LYMPH % 29.9 % (24.0-44.0); MEAN CORPUSCULAR HEMOGLOBIN 24.8 pg (27.0-33.0); MEAN CORPUSCULAR HGB CONC 29.3 g/dl (32.0-36.5); MEAN CORPUSCULAR VOLUME 84.6 fl (80.0-96.0); MONO # 0.5 10^3/uL (0.0-0.8); MONO % 11.1 % (0.0-5.0); NEUTROPHILS # 2.1 10^3/uL (1.5-8.5); NEUTROPHILS % 50.2 % (36.0-66.0); PLATELET COUNT, AUTOMATED 261 10^3/uL (150-450); RED BLOOD COUNT 3.11 10^6/uL (4.00-5.40); WHITE BLOOD COUNT 4.2 10^3/uL (4.0-10.0)
[2020-06-23 20:11] LABS: PERCENT SATURATION 6.2 % (13.2-45.0)
== END ==
LOC: M SHH 18:35
PROVIDERS: ATTEND Nurse Practitioner Family
DX: D64.9 Anemia, unspecified (principal)

== ENCOUNTER 2020-06-28 09:06 | Outpatient (CLI) | payer BC, OTHER ==
[~2020-06-28] VITALS: Ht 170.2 cm; Wt 67.3 kg
[~2020-06-28 09:06] MED LIST changes: +IRON SUCROSE 25 MG in NS 25 ML IV ONE; -LEVE500T5 GT; +ONDANSETRON 4MG/2ML VIAL IV ONE; -OXYC1CON PO; +SODIUM CHLORIDE 0.9% INJ 10 ML SYR IV PRN; +SODIUM CHLORIDE 0.9% INJ 10 ML SYR IV SCH; -ZOLP10TA2 GT; +diphenhydrAMINE 50MG/ML VIAL (J1200) IV ONE
[2020-06-28 09:15] VITALS: BP 110/56
[2020-06-28] MEDS ORDERED: ONDANSETRON 4MG/2ML VIAL As Ordered ONE (09:34)
[2020-06-28] MEDS ORDERED: diphenhydrAMINE 50MG/ML VIAL (J1200) As Ordered ONE (09:42)
[2020-06-28] MEDS ORDERED: diphenhydrAMINE 50MG CAP As Ordered ONE (09:42)
[2020-06-28] MEDS ORDERED: IRON SUCROSE 225 MG in NS 250 ML IV ONE (10:00)
[2020-06-28 12:30] VITALS: BP 103/54
[2020-06-28 13:30] VITALS: BP 92/51
[2020-06-28 15:20] VITALS: BP 111/66
[2020-06-28] MEDS ORDERED: MACR100C43 PO (23:59)
== END 2020-06-28 15:20 | disposition home or self-care (01) ==
LOC: M INFU 09:06
PROVIDERS: ATTEND Nurse Practitioner Family
DX: D50.9 Iron deficiency anemia, unspecified (principal); Z88.2 Allergy status to sulfonamides; Z88.8 Allergy status to other drugs, medicaments and biological substances
CPT/HCPCS: 96365; 96366; J1200; J1756; J2405

== ENCOUNTER 2020-06-28 20:34 | Emergency (ER) | payer BC, OTHER ==
[~2020-06-28] VITALS: Ht 170.2 cm; Wt 78.4 kg
[~2020-06-28 20:34] MED LIST changes: -IRON SUCROSE 25 MG in NS 25 ML IV ONE; -ONDANSETRON 4MG/2ML VIAL IV ONE; -SODIUM CHLORIDE 0.9% INJ 10 ML SYR IV PRN; -SODIUM CHLORIDE 0.9% INJ 10 ML SYR IV SCH; -diphenhydrAMINE 50MG/ML VIAL (J1200) IV ONE
[2020-06-28 20:35] VITALS: BP_DIAS 74
[2020-06-28 21:59] LABS: BASO % 0.5 % (0.0-1.0); EOS # 0.4 10^3/uL (0.0-0.5); EOS % 6.3 % (0.0-3.0); HEMATOCRIT 29.9 % (36.0-47.0); HEMOGLOBIN 8.8 g/dl (12.0-15.5); LYMPH # 1.5 10^3/uL (1.5-5.0); LYMPH % 24.3 % (24.0-44.0); MEAN CORPUSCULAR HEMOGLOBIN 24.7 pg (27.0-33.0); MEAN CORPUSCULAR HGB CONC 29.4 g/dl (32.0-36.5); MONO # 0.6 10^3/uL (0.0-0.8); MONO % 10.1 % (0.0-5.0); NEUTROPHILS # 3.7 10^3/uL (1.5-8.5); NEUTROPHILS % 58.3 % (36.0-66.0); PLATELET COUNT, AUTOMATED 521 10^3/uL (150-450); RED BLOOD COUNT 3.56 10^6/uL (4.00-5.40); WHITE BLOOD COUNT 6.3 10^3/uL (4.0-10.0)
[2020-06-28 22:09] LABS: ALBUMIN 3.5 GM/DL (3.2-5.2); ALT/SGPT 51 U/L (12-78); BILIRUBIN,DIRECT < 0.1 MG/DL (0.0-0.2); BILIRUBIN,TOTAL 0.2 MG/DL (0.2-1.0); LIPASE 105 U/L (73-393); TOTAL PROTEIN 6.7 GM/DL (6.4-8.2)
[2020-06-28] MEDS ORDERED: NS 1,000 ML IV ONE (22:30)
--- NOTE | 2020-06-28 23:39 | REPVR ---
PROCEDURE INFORMATION: Exam: CT Abdomen And Pelvis Without Contrast Exam date and time: 06/28/2020 10:54 PM Age: 40 years old Clinical indication: Abdominal pain; Flank; Left; Prior surgery; Additional info: Left flank pain/hematuria TECHNIQUE: Imaging protocol: Computed tomography of the abdomen and pelvis without contrast. Radiation optimization: All CT scans at this facility use at least one of these dose optimization techniques: automated exposure control; mA and/or kV adjustment per patient size (includes targeted exams where dose is matched to clinical indication); or iterative reconstruction. COMPARISON: CT ABD/PEL W/IV CONTRAST ONLY 03/23/2020 1:00 AM FINDINGS: Limitations: Examination is limited by motion artifact. Tubes, catheters and devices: Status post jejunostomy tube in place. Lungs: Band like density in the left lower lobe. Liver: Normal. No mass. Gallbladder and bile ducts: Status post cholecystectomy. No biliary ductal dilatation. Pancreas: Normal. No ductal dilation. Spleen: Normal. No splenomegaly. Adrenals: Normal. No mass. Kidneys and ureters: Normal. No hydronephrosis. No renal stones. Stomach and bowel: Status post gastric surgery. Severe stool in the colon. No abnormal bowel dilatation. No abnormal bowel wall thickening. Negative for colonic diverticulitis. Appendix: Appendix is normal. Intraperitoneal space: Unremarkable. No free air. No significant fluid collection. Vasculature: No abdominal aortic aneurysm. Mild calcified atherosclerotic disease. Lymph nodes: Unremarkable. No enlarged lymph nodes. Bladder: Unremarkable as visualized. Reproductive: Status post hysterectomy. Pelvic Floor: There is ballooning of the levator hiatus. Bones/joints: Status post posterior L4-S1 fusion. There is no bony bridging across the lumbar fusion levels. No acute fracture. Soft tissues: Subcutaneous injections in the ventral right mid abdomen. IMPRESSION: 1. No hydronephrosis or renal stones. 2. Status post gastric surgery. 3. Status post jejunostomy tube. 4. Band like density in the left lower lobe of the lung. No change from prior. 5. Status post posterior L4-S1 fusion. There is no bony bridging across the lumbar fusion levels. Suspicious for nonfusion. 6. Additional findings as described. Electronically signed by: Frances Castañeda On 06/28/2020 23:38:40 PM
[2020-06-28] MEDS ORDERED: MACR100C43 PO (23:59)
[2020-06-29 00:09] VITALS: BP_SYST 108
== END 2020-06-29 00:11 | disposition home or self-care (01) ==
LOC: M ED 20:34
DX: K59.00 Constipation, unspecified (principal); N39.0 Urinary tract infection, site not specified; F32.9 Major depressive disorder, single episode, unspecified; F41.9 Anxiety disorder, unspecified; E11.9 Type 2 diabetes mellitus without complications; K21.9 Gastro-esophageal reflux disease without esophagitis; Z79.51 Long term (current) use of inhaled steroids; Z79.899 Other long term (current) drug therapy; Z88.1 Allergy status to other antibiotic agents; Z88.6 Allergy status to analgesic agent; Z88.8 Allergy status to other drugs, medicaments and biological substances; Z91.018 Allergy to other foods; Z98.84 Bariatric surgery status

== ENCOUNTER 2020-07-11 07:29 | Outpatient (CLI) | payer BC, OTHER ==
[~2020-07-11] VITALS: Ht 170.2 cm; Wt 67.3 kg
[2020-07-11 07:30] VITALS: BP 114/60
[2020-07-11] MEDS ORDERED: IRON SUCROSE 25 MG in NS 25 ML IV ONE (07:30)
[2020-07-11] MEDS ORDERED: ONDANSETRON 4MG/2ML VIAL IV ONE (07:30)
[2020-07-11] MEDS ORDERED: diphenhydrAMINE 50MG/ML VIAL (J1200) IV ONE (07:30)
[2020-07-11] MEDS ORDERED: IRON SUCROSE 200 MG in NS 100 ML OVER 1 HR IV ONE (07:30)
[2020-07-11] MEDS ORDERED: ONDANSETRON 4MG/2ML VIAL As Ordered ONE (07:43)
[2020-07-11] MEDS ORDERED: diphenhydrAMINE 50MG/ML VIAL (J1200) As Ordered ONE (07:44)
[2020-07-11] MEDS ORDERED: SODIUM CHLORIDE 0.9% INJ 10 ML SYR IV PRN (07:45)
[2020-07-11 09:00] VITALS: BP 95/51
[2020-07-11] MEDS ORDERED: SODIUM CHLORIDE 0.9% INJ 10 ML SYR IV SCH (09:00)
[2020-07-11 10:00] VITALS: BP 90/53
[2020-07-11 11:00] VITALS: BP 106/54
[2020-07-11 12:00] VITALS: BP 118/66
== END 2020-07-11 12:00 | disposition home or self-care (01) ==
LOC: M INFU 07:29
PROVIDERS: ATTEND Nurse Practitioner Family
DX: D50.9 Iron deficiency anemia, unspecified (principal); Z88.2 Allergy status to sulfonamides; Z88.1 Allergy status to other antibiotic agents; Z88.8 Allergy status to other drugs, medicaments and biological substances; Z91.018 Allergy to other foods
CPT/HCPCS: 96365; 96366; 96375; J1200; J1756; J2405

== ENCOUNTER → 2020-07-17 | Outpatient (REF) | payer BC, OTHER ==
[~2020-07-17] MED LIST changes: +LEVE500T5 GT; +OXYC1CON PO; +ZOLP10TA2 GT
[2020-07-17 19:09] LABS: HEMATOCRIT 28.5 % (36.0-47.0); HEMOGLOBIN 8.4 g/dl (12.0-15.5); MEAN CORPUSCULAR HEMOGLOBIN 25.1 pg (27.0-33.0); MEAN CORPUSCULAR HGB CONC 29.5 g/dl (32.0-36.5); MEAN CORPUSCULAR VOLUME 85.1 fl (80.0-96.0); PLATELET COUNT, AUTOMATED 249 10^3/uL (150-450); RED BLOOD COUNT 3.35 10^6/uL (4.00-5.40); WHITE BLOOD COUNT 12.2 10^3/uL (4.0-10.0)
[2020-07-17 19:34] LABS: ALBUMIN 3.6 GM/DL (3.2-5.2); ALT/SGPT 16 U/L (12-78); BILIRUBIN,TOTAL 0.4 MG/DL (0.2-1.0); BLOOD UREA NITROGEN 10 MG/DL (7-18); CALCIUM LEVEL 8.3 MG/DL (8.5-10.1); CARBON DIOXIDE LEVEL 25 MEQ/L (21-32); CHLORIDE LEVEL 108 MEQ/L (98-107); CREATININE FOR GFR 0.73 MG/DL (0.55-1.30); GLOMERULAR FILTRATION RATE > 60.0 (>58); GLUCOSE, FASTING 86 MG/DL (70-100); POTASSIUM SERUM 3.9 MEQ/L (3.5-5.1); SODIUM LEVEL 139 MEQ/L (136-145); TOTAL PROTEIN 6.2 GM/DL (6.4-8.2)
== END ==
LOC: M SHH 18:59
PROVIDERS: ATTEND Family Medicine
DX: K90.89 Other intestinal malabsorption (principal)

== ENCOUNTER → 2020-08-14 | Outpatient (REF) | payer BC, OTHER ==
[2020-08-14 20:11] LABS: BASO % 0.4 % (0.0-1.0); EOS # 0.4 10^3/uL (0.0-0.5); EOS % 8.3 % (0.0-3.0); HEMOGLOBIN 7.4 g/dl (12.0-15.5); LYMPH % 22.1 % (24.0-44.0); MEAN CORPUSCULAR HEMOGLOBIN 24.1 pg (27.0-33.0); MEAN CORPUSCULAR HGB CONC 28.5 g/dl (32.0-36.5); MEAN CORPUSCULAR VOLUME 84.7 fl (80.0-96.0); MONO # 0.4 10^3/uL (0.0-0.8); MONO % 9.2 % (0.0-5.0); NEUTROPHILS # 2.7 10^3/uL (1.5-8.5); NEUTROPHILS % 59.3 % (36.0-66.0); PLATELET COUNT, AUTOMATED 210 10^3/uL (150-450); RED BLOOD COUNT 3.07 10^6/uL (4.00-5.40); WHITE BLOOD COUNT 4.5 10^3/uL (4.0-10.0)
[2020-08-14 20:38] LABS: ALT/SGPT 88 U/L (12-78); BILIRUBIN,TOTAL 0.2 MG/DL (0.2-1.0); BLOOD UREA NITROGEN 8 MG/DL (7-18); CALCIUM LEVEL 8.2 MG/DL (8.5-10.1); CARBON DIOXIDE LEVEL 28 MEQ/L (21-32); CHLORIDE LEVEL 107 MEQ/L (98-107); CHOLESTEROL LEVEL 191 MG/DL (<200); CHOLESTEROL RISK RATIO 5.026 (<5); CREATININE FOR GFR 0.57 MG/DL (0.55-1.30); GLOMERULAR FILTRATION RATE > 60.0 (>58); GLUCOSE, FASTING 99 MG/DL (70-100); HDL CHOLESTEROL 38 MG/DL (>40); LDL CHOLESTEROL 116 MG/DL (<100); NON-HDL-C 153 MG/DL; POTASSIUM SERUM 4.4 MEQ/L (3.5-5.1); SODIUM LEVEL 141 MEQ/L (136-145); TOTAL PROTEIN 5.5 GM/DL (6.4-8.2); TRIGLYCERIDES LEVEL 186 MG/DL (<150)
== END ==
LOC: M LAB REF 19:59
PROVIDERS: ATTEND Internal Medicine Gastroenterology
DX: Z01.89 Encounter for other specified special examinations (principal)

== ENCOUNTER 2020-08-15 12:36 | Inpatient (IN) | payer BC, OTHER ==
[~2020-08-15] VITALS: Ht 170.2 cm; Wt 81.9 kg
[~2020-08-15 12:36] MED LIST changes: -LEVE500T5 GT; -OXYC1CON PO; -ZOLP10TA2 GT
[2020-08-15] MEDS ORDERED: NS 1,000 ML IV ONE (14:15)
[2020-08-15 14:31] LABS: ABG BASE EXCESS 3.4 (-2.0-2.0); ABG HCO3 28.6 MEQ/L (22.0-26.0); ABG O2 SATURATION 98.6 % (95.0-99.0); ABG PARTIAL PRESSURE O2 115.4 mmHg (75.0-100.0); ABG STANDARD HCO3 27.5 MEQ/L (22.0-26.0); ABG pH (ARTERIAL) 7.402 UNITS (7.350-7.450)
[2020-08-15 14:56] LABS: BASO % 0.5 % (0.0-1.0); EOS # 0.3 10^3/uL (0.0-0.5); EOS % 7.1 % (0.0-3.0); HEMATOCRIT 30.7 % (36.0-47.0); HEMOGLOBIN 8.9 g/dl (12.0-15.5); LYMPH # 0.9 10^3/uL (1.5-5.0); LYMPH % 21.5 % (24.0-44.0); MEAN CORPUSCULAR HEMOGLOBIN 24.3 pg (27.0-33.0); MEAN CORPUSCULAR VOLUME 83.9 fl (80.0-96.0); MONO # 0.4 10^3/uL (0.0-0.8); NEUTROPHILS # 2.6 10^3/uL (1.5-8.5); NEUTROPHILS % 61.2 % (36.0-66.0); PLATELET COUNT, AUTOMATED 218 10^3/uL (150-450); RED BLOOD COUNT 3.66 10^6/uL (4.00-5.40); WHITE BLOOD COUNT 4.2 10^3/uL (4.0-10.0)
--- NOTE | 2020-08-15 15:03 | REP ---
INDICATION: SEPSIS/SHOCK. COMPARISON: Comparison radiograph March 23, 2020.. TECHNIQUE: Portable AP view. FINDINGS: There is a right-sided Uezibv-A-Yczg catheter with its tip in the expected location of superior vena cava. Heart is not enlarged. The right lung is clear. There is queta infiltrate in the left base consistent with pneumonia. This is a new finding. Pleural angles are sharp. Pulmonary vasculature is not increased. IMPRESSION: Left base infiltrate consistent with pneumonia. Right-sided Brdljf-X-Nssd catheter. <Electronically signed by Donald Valdez > 08/15/20 1500
[2020-08-15 15:06] LABS: INR 0.86; PROTHROMBIN TIME 11.9 SECONDS (12.5-14.3)
[2020-08-15 15:07] LABS: PARTIAL THROMBOPLASTIN TIME 38.2 SECONDS (24.2-38.5)
[2020-08-15] MEDS ORDERED: cefTRIAXone SOD 1 GM in D5W MINI-BAG PLUS 50 ML IV ONE (15:15)
[2020-08-15] MEDS ORDERED: AZITHROMYCIN INJ 500 MG, VIAL MATE ADAPTER 1 EACH in D5W 250 ML IV ONE (15:15)
[2020-08-15 15:23] LABS: ALBUMIN 3.6 GM/DL (3.2-5.2); ALT/SGPT 109 U/L (12-78); AMYLASE 27 U/L (25-115); BILIRUBIN,DIRECT 0.1 MG/DL (0.0-0.2); BILIRUBIN,TOTAL 0.3 MG/DL (0.2-1.0); BLOOD UREA NITROGEN 9 MG/DL (7-18); C REACTIVE PROTEIN QUANTITATIV 1.06 MG/DL (0.00-0.30); CALCIUM LEVEL 9.1 MG/DL (8.5-10.1); CARBON DIOXIDE LEVEL 29 MEQ/L (21-32); CHLORIDE LEVEL 106 MEQ/L (98-107); CK-MB VALUE MASS < 1.0 NG/ML (<3.6); CPK CREATINE PHOSPHOKINASE 84 U/L (26-192); CREATININE FOR GFR 0.67 MG/DL (0.55-1.30); GLOMERULAR FILTRATION RATE > 60.0 (>58); GLUCOSE, FASTING 92 MG/DL (70-100); MB/CK RELATIVE INDEX 1.19 (< OR =4); POTASSIUM SERUM 4.2 MEQ/L (3.5-5.1); SODIUM LEVEL 139 MEQ/L (136-145); TOTAL PROTEIN 6.6 GM/DL (6.4-8.2); TROPONIN I < 0.02 NG/ML (< 0.10)
[2020-08-15 15:23] LABS: APPEARANCE, URINE CLOUDY (CLEAR); BACTERIA, URINE AUTO NEGATIVE (NEGATIVE); BILIRUBIN, URINE AUTO NEGATIVE (NEGATIVE); BLOOD, URINE BLOOD NEGATIVE (NEGATIVE); COLOR, URINE YELLOW (YELLOW); GLUCOSE, URINE (UA) AUTO NEGATIVE (NEGATIVE); KETONE, URINE AUTO NEGATIVE (NEGATIVE); LEUKOCYTE ESTERASE, URINE AUTO NEGATIVE (NEGATIVE); MUCUS, URINE SMALL (NEGATIVE); NITRITE, URINE AUTO NEGATIVE (NEGATIVE); PROTEIN, URINE AUTO NEGATIVE (NEGATIVE); RBC, URINE AUTO 1 /HPF (0-3); SPECIFIC GRAVITY URINE AUTO 1.016 (1.002-1.035); SQUAMOUS EPITHELIAL CELL UR AU 24 /HPF (0-6); UROBILINOGEN, URINE AUTO 0.2 mg/dL (0.0-2.0); WBC, URINE AUTO 2 /HPF (0-3)
--- NOTE | 2020-08-15 16:52 | HPEPDOC ---
[facility] Medical History & Physical Date of Admission Aug 15, 2020 Date of Service: Aug 15, 2020 History and Physical CHIEF COMPLAINT: Right lower ext swelling, incr SOB HISTORY OF PRESENT ILLNESS: Patient is a 40-year-old female with past medical history of asked her bypass surgery with complications, malabsorption, short gut syndrome, GERD, severe gastroparesis on chronic TPN and use with J-tube for feeding/meds, chronic abdominal and back pain, depression and anxiety, protein S deficiency on Lovenox, history of thrombocytosis, history of blood clots who presented to [facility] ER with a chief complaint of increasing right lower extremity swelling and increased shortness of breath. Per patient, she has had increased shortness of breath beginning 08/14/2020 with increasing nonproductive cough. She is also experiencing increased diaphoresis, chills, increased diarrhea with up to 78 nonbloody watery bowel movements. She also complains of some nausea but no vomiting. She checked her temperature at home and her fever was 102. She has also had increased right anterior leg/bradford pain with itching and swelling. She states that area of erythema and pain has extended outward from her tattoo after she scratched it some. It is painful to touch and she is also having right ankle and posterior calf pain along with these anterior bradford swelling. She denies trauma to this ankle/bradford. The patient has a history of gastroparesis and malabsorption syndrome. She is often treated with IV antibiotics versus oral due to her being unable to either keep him down or digest them. She is frequently prescribed IV antibiotics at home. She had a recent hospitalization at [facility] several weeks ago for a small bowel obstruction. She stayed for 45 days. In our emergency room, she was persistently tachycardic with a heart rate of 105. She was afebrile. She was taking Tylenol at home prior to her arrival here. Chest x-ray showed left lower lobe pneumonia. She was started on ceftriaxone and azithromycin. On assessment by myself she had abdominal discomfort more isolated to the left lower quadrant, increased coughing. Her J-tube was in place but appeared to have pustulant material around the opening. Wound culture was ordered. She had chest pain upon deep inspiration on examination, not recreatable with palpation of the chest wall. CTA of the chest was ordered to rule out PE. There was also a right lower extremity Doppler ordered to rule out DVT. With recent hospitalization and new left lower lobe pneumonia with incr diarrhea, known malabsorption to oral antibiotics, the patient was admitted under observation status for shortness of breath 2/2 to healthcare associated pneumonia, rule out PE, r/o DVT. ROS: Negative except what is mentioned above PMH: Gastric bypass surgery with complications Short gut syndrome GERD Hx of severe gastroparesis on chronic TPN and J-tube for feeding and meds Chronic back and abdominal pain Depression and anxiety Chronic iron deficiency anemia requiring transfusions, iron infusions Protein S deficiency on Lovenox History of thrombocytosis Hx of recurrent SBO Hx of recurrent GI bleed PAST SURGICAL HISTORY: Power PICC placement right chest 02/2020 Back surgery Tonsillectomy Gastric bypass with later reversal Endometrial ablation Hysterectomy Galicia catheter Right leg wound drained Left subclavian port placed, removed J-tube placement Removal of G-tube Placement subclavian port with removal in 2018 PICC line placed in 2018 Bowel resection FAMILY HISTORY: Father: HTN. alive Mother: clotting d/o. Alive SOCIAL HISTORY: Denies smoking, alcohol or drug abuse history. Follows with Cait Wyatt PCP, Dr. Frieda Bell GI, Gastric Surgeon- [facility], Heme/onc- [facility] ALLERGIES: Please see below. HOME MEDICATIONS: Please see below. PHYSICAL EXAMINATION: VS: Please see below CONSTITUTIONAL: No acute distress, resting comfortably, AAO x 3, jerky movements of body at times EYES: PERRLA, EOM intact HENT, MOUTH: Normocephalic, atraumatic, moist mucous membranes, NECK: SUPPLE, no JVD, no lymphadenopathy, no carotid bruit CV: tachycardic, Regular rhythm, S1S2 normal, no murmurs/rubs/gallops CHEST: right chest power PICC RESPIRATORY: Clear to auscultation bilaterally, no rales/rhonchi/wheezes GI:obese abd, multiple well healed surgical scars.Pain with palpation of left lower quadrant. J tube in place in corner of left quadrant, pustulant fluid around the outside. BS positive in 4 quadrants, soft, nontender, nondistended, no rebound or guarding, no organomegaly : Deferred MUSCULOSKELETAL: Normal ROM. No cyanosis, clubbing, joint deformity, extremity edema. Small area of right lower ext cellulitis over and extending from ant bradford tattoo, tender to touch, warm. Decreased ROM of right ankle, no bruising, erythema or warmth. Pain to squeezing of right calf INTEGUMENTARY: Intact, no rashes, no lesions, no erythema NEUROLOGIC: Cranial Nerves II-XII are intact, no focal deficits PSYCHIATRIC: Mood and affect are normal LABORATORY DATA: Please see below IMAGING: CXR: LLL Pneumonia CTA chest: ordered Doppler RLE ordered ASSESSMENT: 40-year-old female with past medical history of asked her bypass surgery with complications, malabsorption, short gut syndrome, GERD, severe gastroparesis on chronic TPN and use with J-tube for feeding/meds, chronic abdominal and back pain, depression and anxiety, protein S deficiency on Lovenox, history of thrombocytosis, history of blood clots admitted under observation status for shortness of breath 2/2 to healthcare associated pneumonia, rule out PE, r/o DVT. PLAN: Shortness of breath 2/2 to HCAP, r/o PE -Currently on RA, incr cough with pleuritic pain -CXR: LLL pneumonia -Hx of clotting d/o with concern for PE so f/u CTA chest -Started on zosyn, aztreonam. f/u MRSA culture to see if needed to add Vancomycin -F/u sputum culture, blood cultures -On therapeutic dosing lovenox at home so will continue Fever, r/o only being 2/2 to HCAP -102 F at home -Other possible causes: J tube infection (with pus around entry site to abd), right chest power PICC, PE vs. DVT? -On UTI px, UA neg -F/u workup above -C/w tx above Right lower ext pain 2/2 to ant bradford cellulitis, r/o DVT -WBC wnl here, febrile at home -F/u doppler LE -C/w abx above -Instructed nursing to outline with marker to see if area of cellulitis, erythema extends out over night Severe gastroparesis with malabsorption, on daily TPN. Hx of short gut syndrome also, may be reason for increased diarrhea. -Increased n/v/d today with increased illness. -Advised to ask patient's family to bring in TPN so we can see what she takes -Resume home meds to see if tolerates -Start on CLD and advance as tolerated -Zofran PRN, IVFs for now Chronic iron deficiency anemia requiring transfusions, iron infusions -H/H near baseline -Daily CBC -F/u with Heme/onc o/p Chronic back and abdominal pain -morphine IV Depression/anxiety -Denies HI/SI -C/w home meds Protein S deficiency -r/o DVT, PE above -C/w lovenox BID Hx of recurrent SBO -Per patient she had a recent hospital admission at [facility] for this issue -requesting records -Having increased diarrhea per patient so this is not an issue at this time. Hx of recurrent GI bleed -Follows with heme/onc for this and protein S deficiency, hx of clots -resume home lovenox and monitor for s/s of bleeding GERD -C/w PPI BID DVT px -Lovenox BID, therapeutic dosing DISPOSITION: Admitted under observation status. Hx of often needing IV abx vs. PO due to her either vomiting them up or not being able to absorb appropriately due to malabsorption syndrome, severe gastroparesis. According to patient's history, she often will be sent home with antibiotics to complete at home, she is well established with home health service. If she will need abx IV for period of time, perhaps this is an option for her? Will defer to PFS and day team provider starting 08/16/20. Vital Signs Vital Signs Date Time Temp Pulse Resp B/P (MAP) Pulse Ox O2 Delivery O2 Flow Rate FiO2 08/15/20 15:01 98.0 08/15/20 13:43 08/15/20 12:36 104 16 96 Room Air Laboratory Data Labs 24H Laboratory Tests 2 08/15/20 14:04: Immature Granulocyte % (Auto) 0.7, Neutrophils (%) (Auto) 61.2, Lymphocytes (%) (Auto) 21.5L, Monocytes (%) (Auto) 9.0H, Eosinophils (%) (Auto) 7.1H, Basophils (%) (Auto) 0.5, Neutrophils # (Auto) 2.6, Lymphocytes # (Auto) 0.9L, Monocytes # (Auto) 0.4, Eosinophils # (Auto) 0.3, Basophils # (Auto) 0.0, Nucleated Red Blood Cells % (auto) 0.0, Prothrombin Time 11.9, Prothromb Time International Ratio 0.86, Activated Partial Thromboplast Time 38.2, Anion Gap 4L, Glomerular F iltration Rate > 60.0, Calcium Level 9.1, Total Bilirubin 0.3, Direct Bilirubin 0.1, Aspartate Amino Transf (AST/SGOT) 76H, Alanine Aminotransferase (ALT/SGPT) 109H, Alkaline Phosphatase 184H, Total Creatine Kinase 84, Creatine Kinase MB < 1.0, Creatine Kinase MB Relative Index 1.19, Troponin I < 0.02, C-Reactive Protein, Quantitative 1.06H, Total Protein 6.6, Albumin 3.6, Albumin/Globulin Ratio 1.2, Amylase Level 27 08/15/20 14:22: Blood Gas Bicarbonate Standard 27.5H, Arterial Blood pH 7.402, Arterial Blood Partial Pressure CO2 47.0H, Arterial Blood Partial Pressure O2 115.4H, Arterial Blood Total CO2 30.0H, Arterial Blood HCO3 28.6H, Arterial Blood Base Excess 3.4H, Arterial Blood Oxygen Saturation 98.6 08/15/20 14:24: Lactic Acid Level 0.7 08/15/20 15:03: Urine Color YELLOW, Urine Appearance CLOUDYH, Urine pH 5.0, Urine Specific Odem 1.016, Urine Protein NEGATIVE, Urine Glucose (Auto)(UA) NEGATIVE, Urine Ketones (Auto) NEGATIVE, Urine Blood NEGATIVE, Urine Nitrite NEGATIVE, Urine Bilirubin NEGATIVE, Urine Urobilinogen 0.2, Urine Leukocyte Esterase (Auto) NEGATIVE, Urine WBC (Auto) 2, Urine RBC (Auto) 1, Urine Hyaline Casts (Auto) 0, Urine Bacteria (Auto) NEGATIVE, Urine Squamous Epithelial Cells 24, Urine Mucus (Auto) SMALL, Urine Sperm (Auto) CBC/BMP Laboratory Tests 08/15/20 14:04 Microbiology Microbiology 08/15/20 Urine Culture, Received Pending 08/15/20 Blood Culture, Received Pending Home Medications Scheduled Enoxaparin Sodium (Enoxaparin Sodium) 80 Mg/0.8 Ml Syringe, 70 MG SC Q12H Fluoxetine Hcl (Fluoxetine HCl) 20 Mg Capsule, 20 MG PO DAILY Heparin Sodium,Porcine/Pf (Heparin 1,000 Unit/10 (100/ml)) 1,000 Unit/10 Ml Syringe, 500 UNIT IV DAILY THROUGH PICC LINE Lipase/Protease/Amylase (Hue Bagley 3,000 Units Capsule) 1 Each Capsule., 1 CAP PO QID Multivit Infusn,Adult 4,Vit K (Infuvite) 10 Ml Vial, 1 TAB PO QHS Nitrofurantoin Monohyd/M-Cryst (Macrobid 100 mg Capsule) 100 Mg Capsule, 100 MG PO BID Pantoprazole Sodium (Pantoprazole Sodium) 40 Mg Vial, 40 MG SC BID THROUGH PICC LINE Scheduled PRN Acetaminophen (Acetaminophen) 500 Mg Tablet, 500 MG PO Q6H PRN for PAIN Albuterol Sulf (Albuterol Sulfate) 2.5 Mg/3 Ml Vial.neb, 2.5 MG INH Q4H PRN for SHORTNESS OF BREATH Albuterol Sulfate (Ventolin Hfa) 18 Gm Hfa.aer.ad, 2 PUFF INH Q6H PRN for SHORT NESS OF BREATH Diphenhydramine HCl (Diphenhydramine HCl) 50 Mg/1 Ml Vial, 50 MG SC DAILY PRN for SEVERE NAUSEA THROUGH PICC LINE Ondansetron (Ondansetron HCl) 2 Mg/1 Ml Vial, 2 MG IV BID PRN for NAUSEA OR VOMITING THROUGH PICC LINE Zolpidem Tartrate (Ambien) 5 Mg Tablet, 5 MG PO QHS PRN for sleep Allergies Coded Allergies: Sulfa (Sulfonamide Antibiotics) (Verified Allergy, Severe, RESP. PROBLEMS, SWELLING, HIVES, 06/28/20) butorphanol (Verified Allergy, Severe, HIVES/RESP. PROBLEMS (PERCOCET AND TYL#3 OK), 06/28/20) HAS HAD MORPHINE AND DILAUDID IN THE PAST levofloxacin (Verified Allergy, Severe, THROAT SWELLING/HIVES, 06/28/20) tomato (Verified Allergy, Severe, RESP. PROBLEMS, HIVES, 06/28/20) tramadol (Verified Allergy, Severe, SOB - HAS HAD MORPHINE AND DILAUDID IN THE PAST, 06/28/20) scopolamine (Verified Adverse Reaction, Intermediate, VISION LOSS, 06/28/20) NSAIDS (Non-Steroidal Anti-Inflamma (Verified Adverse Reaction, Mild, GASTRIC BYPASS, 06/28/20) A-FIB/CHADSVASC A-FIB History Current/History of A-Fib/PAF?: No Current PO Anticoag Therapy: No Age/Risk Factor Scoring CHADSVASC: CHADSVASC Response (Comments) Value Age Risk Factor Age < 65 years old 0 Gender Risk Factor Female 1 Hx of CHF No 0 Hx of HTN No 0 Hx of Stroke/TIA/or VTE No 0 Hx of Diabetes No 0 Hx of Vascular Disease No 0 Total 1 Treatment Other anticoagulant ordered: lovenox BID Tawnya French MD Aug 15, 2020 16:52
[2020-08-15] MEDS ORDERED: MORPHINE 2 MG/ML 1ML VIAL (J2270) IV PRN (17:45)
[2020-08-15] MEDS ORDERED: ONDANSETRON 4MG/2ML VIAL IV PRN (17:45)
[2020-08-15] MEDS ORDERED: ISOVUE-370 76% 100ML VIAL As Ordered ONE (17:50)
[2020-08-15] MEDS ORDERED: zolPIDEM TARTRATE 5 MG TAB JT PRN (18:15)
[2020-08-15] MEDS ORDERED: ALBUTEROL 90 MCG/ACT 8GM HFA INHALER INH PRN (18:15)
[2020-08-15] MEDS ORDERED: ACETAMINOPHEN 500 MG TAB PO PRN (18:15)
[2020-08-15] MEDS ORDERED: diphenhydrAMINE 50MG/ML VIAL (J1200) IV PRN (18:15)
[2020-08-15] MEDS ORDERED: ALBUTEROL SULFATE 2.5 MG/0.5 ML INH NEB SOLN INH PRN (18:15)
[2020-08-15] MEDS ORDERED: OXYC1CON PO (18:16)
[2020-08-15] MEDS ORDERED: ZOLP10TA2 GT (18:16)
[2020-08-15] MEDS ORDERED: LEVE500T5 GT (18:16)
[2020-08-15] MEDS ORDERED: oxyCODONE 5MG TAB PO PRN (18:30)
[2020-08-15 18:45] VITALS: BP 163/114
--- NOTE | 2020-08-15 19:54 | REPVR ---
PROCEDURE INFORMATION: Exam: US Duplex Right Lower Extremity Veins, Limited Exam date and time: 08/15/2020 6:44 PM Age: 40 years old Clinical indication: Swelling (edema) of limb; Lower extremity, right; Additional info: Right lower leg swelling, pain R/O dvt TECHNIQUE: Imaging protocol: Real-time Duplex ultrasound of the Right Lower Extremity with 2-D [place] scale, color Doppler flow and spectral waveform analysis with image documentation. Limited exam was focused on the right lower extremity veins. COMPARISON: US VEIN MAPPING PRE AVF 03/19/2019 10:18 AM FINDINGS: Right deep veins: Unremarkable. The common femoral, femoral, proximal profunda femoral and popliteal veins are patent without thrombus. Normal Doppler waveforms. Normal compressibility and/or augmentation response. Right superficial veins: Unremarkable. Saphenofemoral junction is patent without thrombus. Soft tissues: Unremarkable. IMPRESSION: No evidence of deep vein thrombosis. Electronically signed by: Andrea Meneses On 08/15/2020 19:54:38 PM
[2020-08-15] MEDS: PIPERACILLIN/TAZOBACTAM SOD 4.5 GM in D5W MINI-BAG PLUS 50 ML IV SCH (20:02)
[2020-08-15] MEDS: NS 1,000 ML IV SCH (20:02)
[2020-08-15] MEDS: ENOXAPARIN 80MG/0.8ML SYRINGE (J1650 PER 10MG) SC SCH (20:05)
[2020-08-15] MEDS: PANTOPRAZOLE 40MG VIAL (C9113 PER 1) IV SCH (20:51)
[2020-08-15] MEDS: MORPHINE 2 MG/ML 1ML VIAL (J2270) IV PRN (20:52)
[2020-08-15] MEDS: levETIRAcetam ORAL SOLUTION 500 MG/5 ML UDC JT SCH (20:52)
[2020-08-15] MEDS ORDERED: MVI -ADULT INJECTION 10ML VIAL IV SCH (21:00)
[2020-08-15 22:00] VITALS: BP 102/48
[2020-08-15] MEDS: AZTREONAM 2 GM in D5W MINI-BAG PLUS 50 ML IV SCH (22:12)
[2020-08-16] MEDS: PIPERACILLIN/TAZOBACTAM SOD 4.5 GM in D5W MINI-BAG PLUS 50 ML IV SCH ×2 (04:03→11:40)
[2020-08-16] MEDS: MORPHINE 2 MG/ML 1ML VIAL (J2270) IV PRN ×3 (04:43→17:08)
[2020-08-16] MEDS: AZTREONAM 2 GM in D5W MINI-BAG PLUS 50 ML IV SCH ×2 (05:38→13:44)
[2020-08-16 06:00] VITALS: BP 116/60
[2020-08-16 06:49] LABS: HEMATOCRIT 28.6 % (36.0-47.0); HEMOGLOBIN 8.3 g/dl (12.0-15.5); MEAN CORPUSCULAR HEMOGLOBIN 24.1 pg (27.0-33.0); MEAN CORPUSCULAR VOLUME 82.9 fl (80.0-96.0); PLATELET COUNT, AUTOMATED 218 10^3/uL (150-450); RED BLOOD COUNT 3.45 10^6/uL (4.00-5.40); WHITE BLOOD COUNT 4.8 10^3/uL (4.0-10.0)
[2020-08-16 07:11] LABS: ALT/SGPT 87 U/L (12-78); BILIRUBIN,TOTAL 0.5 MG/DL (0.2-1.0); BLOOD UREA NITROGEN 6 MG/DL (7-18); CALCIUM LEVEL 8.5 MG/DL (8.5-10.1); CARBON DIOXIDE LEVEL 28 MEQ/L (21-32); CHLORIDE LEVEL 106 MEQ/L (98-107); CREATININE FOR GFR 0.61 MG/DL (0.55-1.30); GLOMERULAR FILTRATION RATE > 60.0 (>58); GLUCOSE, FASTING 115 MG/DL (70-100); SODIUM LEVEL 139 MEQ/L (136-145); TOTAL PROTEIN 5.6 GM/DL (6.4-8.2)
[2020-08-16] MEDS ORDERED: ISOVUE-370 76% 100ML VIAL As Ordered ONE (08:53)
[2020-08-16] MEDS ORDERED: FLUoxetine 20 MG CAP JT SCH (09:00)
--- NOTE | 2020-08-16 09:28 | ECGEPIP ---
[place] - ED Test Date: 2020-08-15 Pat Name: NI RICHMOND Department: Room: - Gender: Female [employer]: : 1980 Requested By: ROHAN DALEY Order Number: [id number] Reading MD: Charmaine Hill Measurements Intervals [place] Rate: 97 P: 56 OK: 152 QRS: 42 QRSD: 79 T: 19 QT: 350 QTc: 447 Interpretive Statements SINUS RHYTHM NSTTW abnormalities SIMILAR 03/31/19 Electronically Signed on 08-16-2020 9:28:26 EDT by Charmaine Hill
[2020-08-16] MEDS: ENOXAPARIN 80MG/0.8ML SYRINGE (J1650 PER 10MG) SC SCH (09:46)
[2020-08-16] MEDS: levETIRAcetam ORAL SOLUTION 500 MG/5 ML UDC JT SCH (09:46)
[2020-08-16] MEDS: NS 1,000 ML IV SCH (09:47)
[2020-08-16] MEDS: PANTOPRAZOLE 40MG VIAL (C9113 PER 1) IV SCH (09:47)
--- NOTE | 2020-08-16 09:47 | REP ---
INDICATION: pe. COMPARISON: 03/20/2019. TECHNIQUE: CT angiogram chest performed following the intravenous administration of 100 cc of Isovue 370. Sagittal and coronal reconstruction images are performed. FINDINGS: Lungs: Right lung clear. There is mild patchy atelectasis or infiltrate in the left lower lobe. The bandlike density inferiorly in the posterolateral left lower lobe as mildly increased since the exam of 06/28/2020. Mediastinum: No adenopathy. Pulmonary arteries: The peripheral aspect of the secondary pulmonary arterial branch of the lateral basilar segment of the left lower lobe demonstrates abrupt nonenhancement consistent with a peripheral pulmonary embolism. Other pulmonary arteries bilaterally opacify well with contrast with no other evidence of pulmonary embolism. Ester: No adenopathy. Axilla: No adenopathy. Pleura: No effusion. Heart: Not enlarged. Thoracic aorta: No aneurysm or dissection. Upper abdominal structures: The patient has had a prior cholecystectomy. Visualized osseous structures: Unremarkable. IMPRESSION: The peripheral aspect of the secondary pulmonary arterial branch of the lateral basilar segment of the left lower lobe demonstrates abrupt nonenhancement consistent with a peripheral pulmonary embolism. Other pulmonary arteries bilaterally opacify well with contrast with no other evidence of pulmonary embolism. There is mild patchy atelectasis or infiltrate in the left lower lobe. The bandlike density inferiorly in the posterolateral left lower lobe as mildly increased since the exam of 06/28/2020. <Electronically signed by Fredrick Hinton > 08/16/20 0905
[2020-08-16 14:00] VITALS: BP 112/60
--- NOTE | 2020-08-16 17:47 | DS.PDOC ---
Discharge Summary General Date of Admission Aug 15, 2020 at 16:52 Date of Discharge 08/16/20 Discharge Summary PROCEDURES PERFORMED DURING STAY: [None]. ADMITTING DIAGNOSES: Shortness of breath Fever Severe gastroparesis with malabsorption Chronic iron deficiency anemia Chronic back and abdominal pain Depression/anxiety Protein S deficiency Hx of recurrent GI bleed Hx of recurrent SBO GERD DISCHARGE DIAGNOSES: Shortness of breath Fever Severe gastroparesis with malabsorption Chronic iron deficiency anemia Chronic back and abdominal pain Depression/anxiety Protein S deficiency Hx of recurrent GI bleed Hx of recurrent SBO GERD COMPLICATIONS/CHIEF COMPLAINT: Fever Pneumonia. HISTORY OF PRESENT ILLNESS: : 40-year-old female with past medical history of asked her bypass surgery with complications, malabsorption, short gut syndrome, GERD, severe gastroparesis on chronic TPN and use with J-tube for feeding/meds, chronic abdominal and back pain, depression and anxiety, protein S deficiency on Lovenox, history of thrombocytosis, history of blood clots admitted under observation status for shortness of breath HOSPITAL COURSE: During hospital stay patient was found to have left lung subsegmental PE. Most likely fever was associated with PE. Dr. Flores consulted patient, he recommended to increase the dose of Lovenox to 100 mg twice a day. DISCHARGE MEDICATIONS: Please see below. ALLERGIES: Please see below. PHYSICAL EXAMINATION ON DISCHARGE: VITAL SIGNS: Please see below. CONSTITUTIONAL: No acute distress, resting comfortably, AAO x 3, jerky movements of body at times EYES: PERRLA, EOM intact HENT, MOUTH: Normocephalic, atraumatic, moist mucous membranes, NECK: SUPPLE, no JVD, no lymphadenopathy, no carotid bruit CV: tachycardic, Regular rhythm, S1S2 normal, no murmurs/rubs/gallops CHEST: right chest power PICC RESPIRATORY: Clear to auscultation bilaterally, no rales/rhonchi/wheezes GI:obese abd, multiple well healed surgical scars.Pain with palpation of left lower quadrant. J tube in place in corner of left quadrant, pustulant fluid around the outside. BS positive in 4 quadrants, soft, nontender, nondistended, no rebound or guarding, no organomegaly : Deferred MUSCULOSKELETAL: Normal ROM. No cyanosis, clubbing, joint deformity, extremity edema. Small area of right lower ext cellulitis over and extending from ant bradford tattoo, tender to touch, warm. Decreased ROM of right ankle, no bruising, erythema or warmth. Pain to squeezing of right calf INTEGUMENTARY: Intact, no rashes, no lesions, no erythema NEUROLOGIC: Cranial Nerves II-XII are intact, no focal deficits PSYCHIATRIC: Mood and affect are normal LABORATORY DATA: Please see below. IMAGING: [facility] NAME: NI RICHMOND DATE OF : 1980 AGE: 40 SEX: F REPORT #: [id number] ROOM: [facility] TECHNOLOGIST: CHRISTIE DOCTOR: TANNER YANCEY DO Ordered for Date&Time: 08/16/20830 cc: [~ rep ct ivnm] Service Date&Time: 08/16/20913 This report is in Signed status. If this report is in a DRAFT status it has not yet been reviewed by the radiologist for accuracy. Thank you for having your radiology procedures performed at [facility] RADIOLOGY REPORT Date&Time printed: [~ rep prt dt last] [~ rep prt tm last] Page 2 of 2 [place] [address] RADIOLOGY REPORT This report is in Signed status. If this report is in a DRAFT status it has not yet been reviewed by the radiologist for accuracy. Thank you for having your radiology procedures performed at [facility] RADIOLOGY REPORT Date&Time printed: [~ rep prt dt last] [~ rep prt tm last] Page 1 of 1 INDICATION: pe. COMPARISON: 03/20/2019. TECHNIQUE: CT angiogram chest performed following the intravenous administration of 100 cc of Isovue 370. Sagittal and coronal reconstruction images are performed. FINDINGS: Lungs: Right lung clear. There is mild patchy atelectasis or infiltrate in the left lower lobe. The bandlike density inferiorly in the posterolateral left lower lobe as mildly increased since the exam of 06/28/2020. Mediastinum: No adenopathy. Pulmonary arteries: The peripheral aspect of the secondary pulmonary arterial branch of the lateral basilar segment of the left lower lobe demonstrates abrupt nonenhancement consistent with a peripheral pulmonary embolism. Other pulmonary arteries bilaterally opacify well with contrast with no other evidence of pulmonary embolism. Ester: No adenopathy. Axilla: No adenopathy. Pleura: No effusion. Heart: Not enlarged. Thoracic aorta: No aneurysm or dissection. Upper abdominal structures: The patient has had a prior cholecystectomy. Visualized osseous structures: Unremarkable. IMPRESSION: The peripheral aspect of the secondary pulmonary arterial branch of the lateral basilar segment of the left lower lobe demonstrates abrupt nonenhancement consistent with a peripheral pulmonary embolism. Other pulmonary arteries bilaterally opacify well with contrast with no other evidence of pulmonary embolism. There is mild patchy atelectasis or infiltrate in the left lower lobe. The bandlike density inferiorly in the posterolateral left lower lobe as mildly increased since the exam of 06/28/2020. <Electronically signed by Fredrick Hinton > 08/16/20942 DD: Fredrick Hinton MD, MD 08/16/20926 DT: BULMARO 08/16/20942 DS: ROSSANA 08/16/2092608/16/20926 [~ rep ct labl] PROCEDURE INFORMATION: Exam: US Duplex Right Lower Extremity Veins, Limited Exam date and time: 08/15/2020 6:44 PM Age: 40 years old Clinical indication: Swelling (edema) of limb; Lower extremity, right; Additional info: Right lower leg swelling, pain R/O dvt TECHNIQUE: Imaging protocol: Real-time Duplex ultrasound of the Right Lower Extremity with 2-D hinton scale, color Doppler flow and spectral waveform analysis with image documentation. Limited exam was focused on the right lower extremity veins. COMPARISON: US VEIN MAPPING PRE AVF 03/19/2019 10:18 AM FINDINGS: Right deep veins: Unremarkable. The common femoral, femoral, proximal profunda femoral and popliteal veins are patent without thrombus. Normal Doppler waveforms. Normal compressibility and/or augmentation response. Right superficial veins: Unremarkable. Saphenofemoral junction is patent without thrombus. Soft tissues: Unremarkable. IMPRESSION: No evidence of deep vein thrombosis. Electronically signed by: Andrea Meneses On 08/15/2020 19:54:38 PM PROGNOSIS: Fair ACTIVITY: [As tolerated]. DIET: Continue home diet with TPN DISCHARGE PLAN: Home ITEMS TO FOLLOWUP ON ON OUTPATIENT: Follow-up with grade school teacher in the outpatient settings DISCHARGE CONDITION: [Stable]. TIME SPENT ON DISCHARGE: Greater than 20 minutes. Vital Signs/I&Os Vital Signs Date Time Temp Pulse Resp B/P (MAP) Pulse Ox O2 Delivery O2 Flow Rate FiO2 10/27/20 17:08 18 08/16/20 14:00 97.6 98 112/60 (77) 94 Room Air I&O- Last 24 Hours up to 6 AM 08/16/20 05:59 Intake Total 2455 ml Output Total 0 ml Balance 2455 ml Laboratory Data Labs 24H Laboratory Tests 2 08/16/20 04:53: Methicillin-Resist S.aureus DNA PCR NOT DETECTED 08/16/20 06:27: Nucleated Red Blood Cells % (auto) 0.0, Anion Gap 5L, Glomerular Filtration Rate > 60.0, Calcium Level 8.5, Total Bilirubin 0.5#, Aspartate Amino Transf (AST/SGOT) 56H, Alanine Aminotransferase (ALT/SGPT) 87H, Alkaline Phosphatase 173H, Total Protein 5.6L, Albumin 3.0L, Albumin/Globulin Ratio 1.2 08/16/20 16:39: Bedside Glucose (Misc Panel) 107H CBC/BMP Laboratory Tests 08/16/20 06:27 FSBS Laboratory Tests Test 08/16/20 16:39 Range/Units Bedside Glucose (Misc Panel) 107 70-105 MG/DL Microbiology Microbiology 08/16/20 Wound Culture, Received Pending 08/15/20 Blood Culture - Preliminary, Resulted No growth after 24 hours . All specim... 08/15/20 Urine Culture, Received Pending 08/15/20 Blood Culture - Preliminary, Resulted No growth after 24 hours . All specim... Discharge Medications Scheduled Enoxaparin Sodium (Enoxaparin Sodium) 80 Mg/0.8 Ml Syringe, 70 MG SC Q12H, (Reported) Fluoxetine Hcl (Fluoxetine HCl) 20 Mg Capsule, 20 MG GT DAILY, (Reported) Heparin Sodium,Porcine/Pf (Heparin 1,000 Unit/10 (100/ml)) 1,000 Unit/10 Ml S yringe, 500 UNIT IV DAILY, (Reported) THROUGH PICC LINE Lipase/Protease/Amylase (Hue Bagley 3,000 Units Capsule) 1 Each Capsule., 1 CAP GT QID, (Reported) Multivit Infusn,Adult 4,Vit K (Infuvite) 10 Ml Vial, 10 ML IV QHS, (Reported) THROUGH PICC LINE Pantoprazole Sodium (Pantoprazole Sodium) 40 Mg Vial, 40 MG SC BID, (Reported) THROUGH PICC LINE levETIRAcetam (levETIRAcetam) 500 Mg Tablet, 500 MG GT BID, (Reported) Scheduled PRN Acetaminophen (Acetaminophen) 500 Mg Tablet, 500 MG PO Q6H PRN for PAIN, (Reported) Albuterol Sulf (Albuterol Sulfate) 2.5 Mg/3 Ml Vial.neb, 2.5 MG INH Q4H PRN for SHORTNESS OF BREATH, (Reported) Albuterol Sulfate (Ventolin Hfa) 18 Gm Hfa.aer.ad, 2 PUFF INH Q6H PRN for SHORTNESS OF BREATH, (Reported) Diphenhydramine HCl (Diphenhydramine HCl) 50 Mg/1 Ml Vial, 50 MG IV DAILY PRN for SEVERE NAUSEA, (Reported) THROUGH PICC LINE Ondansetron (Ondansetron HCl) 2 Mg/1 Ml Vial, 4 MG IV BID PRN for NAUSEA OR VOMITING, (Reported) THROUGH PICC LINE Oxycodone HCl (Oxycodone HCl) 20 Mg/1 Ml Oral.conc, 1.5 ML PO Q4H PRN for PAIN, (Reported) Zolpidem Tartrate (Zolpidem Tartrate) 10 Mg Tablet, 10 MG GT QHS PRN for SLEEP, (Reported) Allergies Coded Allergies: Sulfa (Sulfonamide Antibiotics) (Verified Allergy, Severe, RESP. PROBLEMS, SWELLING, HIVES, 06/28/20) butorphanol (Verified Allergy, Severe, HIVES/RESP. PROBLEMS (PERCOCET AND TYL#3 OK), 06/28/20) HAS HAD MORPHINE AND DILAUDID IN THE PAST levofloxacin (Verified Allergy, Severe, THROAT SWELLING/HIVES, 06/28/20) tomato (Verified Allergy, Severe, RESP. PROBLEMS, HIVES, 06/28/20) tramadol (Verified Allergy, Severe, SOB - HAS HAD MORPHINE AND DILAUDID IN THE PAST, 06/28/20) scopolamine (Verified Adverse Reaction, Intermediate, VISION LOSS, 06/28/20) NSAIDS (Non-Steroidal Anti-Inflamma (Verified Adverse Reaction, Mild, GASTRIC BYPASS, 06/28/20) TANNER YANCEY DO Aug 16, 2020 17:47
[2020-08-16] MEDS ORDERED: FAT EMULSION IV 20% 500 ML IV SCH (18:00)
[2020-08-16] MEDS ORDERED: AMINO AC/ELECTROLYTE/DEX/CALC 2,000 ML IV SCH (18:00)
[2020-08-16] MEDS ORDERED: HumaLOG INSULIN (NovoLOG) PER UNIT SC SCH (18:00)
[2020-08-16] MEDS ORDERED: LOVE1INJ SC (18:36)
--- NOTE | 2020-08-16 19:01 | CR.PDOC ---
General Date of Consultation: Aug 16, 2020 Referring Provider: TANNER YANCEY DO Attending Physician: HARVINDER ACOSTA MD Consultation REASON FOR CONSULTATION/CHIEF COMPLAINT: Protein S deficiency. Pulmonary embolism while on Lovenox 70 mg subcutaneous twice daily. HISTORY OF PRESENT ILLNESS: I had the pleasure of seeing Ms. Collado in consultation for pulmonary embolism while on full dose anticoagulation with Lovenox 70 mg subcutaneous twice daily. As you know Ms. Diaz is a 40-year-old white female who has multiple comorbidities including protein S deficiency which was diagnosed in 2004 when she had a stillbirth. She has been on Lovenox during all 4 pregnancies and had 4 successful deliveries. She has 4 grown up kids youngest one is 12 years of age. She has multiple histories of DVT. A year ago she had a right jugular and subclavian vein thrombosis. At other times she had thrombosis of the vein in the left arm. So she was started on Lovenox 70 mg subcutaneous twice daily for long-term basis. She had gastroparesis for last 10 years and underwent gastric bypass surgery in 2008. She is TPN dependent for last 3 years and also had J-tube for last 10 years. She cannot take oral tablets and is committed to Lovenox or any other injectable. She was admitted to [facility] on July due to swelling of the right lower leg and increasing shortness of breath. CT scan of the chest done today and July which revealed subsegmental pulmonary embolism. On admission chest was not hurting but now her chest is hurting. She also has chronic GI bleed off and on and several times in the past. As she is on anticoagulation she becomes anemic and has been receiving parenteral iron as well as blood transfusions off-and-on. She continues to foll ow gastroenterology. Last blood transfusion was given in February 2020. She has received blood transfusions for 4 times for now.. ALLERGIES: Please see below. HOME MEDICATIONS: Please see below. PAST MEDICAL HISTORY: 1. Significant for stillbirth. 2. History bypass surgery and malabsoption.. 3. Committed to TPN for life long as malabsoption. PAST SURGICAL HISTORY: 1. Gastric bypass and reversal of gastric bypass 2. 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 HEENT: Hearing is normal. No postnasal drip. CARDIOVASCULAR: Denies any chest pain palpitations PND or orthopnea. RESPIRATORY: Clear to auscultation and percussion. MUSCULOSKELETAL: Able to move all the limps without any symptoms. GASTROINTESTINAL: Malabsoption and gastroparesis status post gastric bypass surgery and unsuccessful reversal of stomach bypass. SKIN: None. NEUROLOGICAL: No neurological deficit. PSYCHIATRIC: Slightly anxious. ENDOCRINE: Not to diuretic. HEMATOLOGIC/LYMPHATIC: Recurrent anemia due to iron deficiency secondary to GI bleed. PHYSICAL EXAMINATION: VITAL SIGNS: Please see below. GENERAL APPEARANCE: Pleasant female in no acute distress. HEENT: WNL you are mild oral cavity clear without mucositis or thrush. RESPIRATORY: Clear to auscultation and percussion. CARDIOVASCULAR: RRR normal S1-S2. ABDOMEN: Soft Boorse on present J-tube noted. EXTREMITIES: No edema. NEUROLOGICAL: No gross neurological deficit. PSYCHIATRIC: Mild anxiety. LABORATORY DATA: Please see below. ASSESSMENT/PLAN: 1. Protein S deficiency and recurrent DVT and pulmonary embolism. Patient has gastroparesis and malabsoption. She is committed to TPN as well as G-tube feeding for lifetime. She is not a candidate for oral tablets since absorption of oral medicine will be unpredictable. Since she is on Lovenox 70 mg subcutaneous twice daily we need to increase the dose of Lovenox to 100 mg subcutaneous twice daily. She GI bleeder and has been getting IV iron off-and-on with blood transfusion as needed. She needs to continue to watch her hemoglobin and hematocrit regularly.. 2. She showed continue to get TPN as such and vitamin K should be included in her multivitamin which is added to her TPN. I talked to the patient in detail. She is compliant according to her and she gets her shots regularly and she self injects it twice daily. She needs to stay on Lovenox 100 mg subcutaneous twice daily for now and we will follow her as outpatient. We need to check her antifactor Xa activity to make sure that she gets adequate dose of Lovenox. That can be done as outpatient.. Vital Signs/I&O Vital Signs Date Time Temp Pulse Resp B/P (MAP) Pulse Ox O2 Delivery O2 Flow Rate FiO2 08/16/20 17:08 18 08/16/20 14:00 97.6 98 112/60 (77) 94 Room Air I&O- Last 24 Hours up to 6 AM 08/16/20 06:00 Intake Total 3105 ml Output Total 850 ml Balance 2255 ml Laboratory Data Labs 24H Laboratory Tests 2 08/16/20 04:53: Methicillin-Resist S.aureus DNA PCR NOT DETECTED 08/16/20 06:27: Nucleated Red Blood Cells % (auto) 0.0, Anion Gap 5L, Glomerular Filtration Rate > 60.0, Calcium Level 8.5, Total Bilirubin 0.5#, Aspartate Amino Transf (AST/SGOT) 56H, Alanine Aminotransferase (ALT/SGPT) 87H, Alkaline Phosphatase 173H, Total Protein 5.6L, Albumin 3.0L, Albumin/Globulin Ratio 1.2 08/16/20 16:39: Bedside Glucose (Misc Panel) 107H CBC/BMP Laboratory Tests 08/16/20 06:27 Microbiology Microbiology 08/16/20 Wound Culture, Received Pending 08/15/20 Blood Culture - Preliminary, Resulted No growth after 24 hours . All specim... 08/15/20 Urine Culture, Received Pending 08/15/20 Blood Culture - Preliminary, Resulted No growth after 24 hours . All specim... Allergies Coded Allergies: Sulfa (Sulfonamide Antibiotics) (Verified Allergy, Severe, RESP. PROBLEMS, SWELLING, HIVES, 06/28/20) butorphanol (Verified Allergy, Severe, HIVES/RESP. PROBLEMS (PERCOCET AND TYL#3 OK), 06/28/20) HAS HAD MORPHINE AND DILAUDID IN THE PAST levofloxacin (Verified Allergy, Severe, THROAT SWELLING/HIVES, 06/28/20) tomato (Verified Allergy, Severe, RESP. PROBLEMS, HIVES, 06/28/20) tramadol (Verified Allergy, Severe, SOB - HAS HAD MORPHINE AND DILAUDID IN THE PAST, 06/28/20) scopolamine (Verified Adverse Reaction, Intermediate, VISION LOSS, 06/28/20) NSAIDS (Non-Steroidal Anti-Inflamma (Verified Adverse Reaction, Mild, GASTRIC BYPASS, 06/28/20) Home Medications Scheduled Enoxaparin Sodium (Enoxaparin Sodium) 80 Mg/0.8 Ml Syringe, 70 MG SC Q12H, (Reported) Fluoxetine Hcl (Fluoxetine HCl) 20 Mg Capsule, 20 MG GT DAILY, (Reported) Heparin Sodium,Porcine/Pf (Heparin 1,000 Unit/10 (100/ml)) 1,000 Unit/10 Ml Syringe, 500 UNIT IV DAILY, (Reported) THROUGH PICC LINE Lipase/Protease/Amylase (Hue Bagley 3,000 Units Capsule) 1 Each Capsule.dr, 1 CAP GT QID, (Reported) Multivit Infusn,Adult 4,Vit K (Infuvite) 10 Ml Vial, 10 ML IV QHS, (Reported) THROUGH PICC LINE Pantoprazole Sodium (Pantoprazole Sodium) 40 Mg Vial, 40 MG SC BID, (Reported) THROUGH PICC LINE levETIRAcetam (levETIRAcetam) 500 Mg Tablet, 500 MG GT BID, (Reported) Scheduled PRN Acetaminophen (Acetaminophen) 500 Mg Tablet, 500 MG PO Q6H PRN for PAIN, (Reported) Albuterol Sulf (Albuterol Sulfate) 2.5 Mg/3 Ml Vial.neb, 2.5 MG INH Q4H PRN for SHORTNESS OF BREATH, (Reported) Albuterol Sulfate (Ventolin Hfa) 18 Gm Hfa.aer.ad, 2 PUFF INH Q6H PRN for SHOR TNESS OF BREATH, (Reported) Diphenhydramine HCl (Diphenhydramine HCl) 50 Mg/1 Ml Vial, 50 MG IV DAILY PRN for SEVERE NAUSEA, (Reported) THROUGH PICC LINE Ondansetron (Ondansetron HCl) 2 Mg/1 Ml Vial, 4 MG IV BID PRN for NAUSEA OR VO MITING, (Reported) THROUGH PICC LINE Oxycodone HCl (Oxycodone HCl) 20 Mg/1 Ml Oral.conc, 1.5 ML PO Q4H PRN for PAIN, (Reported) Zolpidem Tartrate (Zolpidem Tartrate) 10 Mg Tablet, 10 MG GT QHS PRN for SLEEP, (Reported) HARVINDER ACOSTA MD Aug 16, 2020 19:01
[2020-08-16] MEDS ORDERED: ENOXAPARIN 100MG/1ML SYRINGE (J1650 PER 10MG) SC ONE (20:00)
== END 2020-08-16 19:30 | disposition home health service (06) | DRG 134 ==
LOC: M ED 12:36 → M ED INP 16:52 → ENRESERV 17:06 → M MSPAV 18:46
PROVIDERS: ADMIT Internal Medicine; ATTEND Internal Medicine
DX: I26.93 Single subsegmental thrombotic pulmonary embolism without acute cor pulmonale (principal); D68.59 Other primary thrombophilia; K91.2 Postsurgical malabsorption, not elsewhere classified; K31.84 Gastroparesis; L03.115 Cellulitis of right lower limb; K21.9 Gastro-esophageal reflux disease without esophagitis; F32.9 Major depressive disorder, single episode, unspecified; F41.9 Anxiety disorder, unspecified; D50.9 Iron deficiency anemia, unspecified; Z90.49 Acquired absence of other specified parts of digestive tract; Z79.899 Other long term (current) drug therapy; Z88.2 Allergy status to sulfonamides; Z88.1 Allergy status to other antibiotic agents; Z88.5 Allergy status to narcotic agent; Z88.6 Allergy status to analgesic agent; Z88.8 Allergy status to other drugs, medicaments and biological substances; Z91.018 Allergy to other foods

== ENCOUNTER 2020-09-05 08:43 | Outpatient (CLI) | payer BC, OTHER ==
[~2020-09-05] VITALS: Ht 165.1 cm; Wt 81.3 kg
[~2020-09-05 08:43] MED LIST changes: +IRON SUCROSE 300 MG in NS 250 ML OVER 90 MIN. IV ONE; +LEVE500T5 GT; +ONDANSETRON 4MG/2ML VIAL IV ONE; +OXYC1CON PO; +SODIUM CHLORIDE 0.9% INJ 10 ML SYR IV PRN; +ZOLP10TA2 GT; +diphenhydrAMINE 50MG/ML VIAL (J1200) IV ONE
[2020-09-05 08:45] VITALS: BP 142/71
[2020-09-05] MEDS ORDERED: SODIUM CHLORIDE 0.9% INJ 10 ML SYR IV SCH (09:00)
[2020-09-05 10:41] VITALS: BP 101/57
[2020-09-05 12:00] VITALS: BP 96/53
[2020-09-05 13:20] VITALS: BP 118/64
== END 2020-09-05 13:20 | disposition home or self-care (01) ==
LOC: M INFU 08:43
PROVIDERS: ATTEND Nurse Practitioner
DX: D64.9 Anemia, unspecified (principal); Z88.1 Allergy status to other antibiotic agents; Z88.2 Allergy status to sulfonamides; Z88.6 Allergy status to analgesic agent; Z88.8 Allergy status to other drugs, medicaments and biological substances
CPT/HCPCS: 96365; 96366; J1200; J1642; J1756; J2405

== ENCOUNTER → 2020-09-06 | Outpatient (REF) | payer BC, OTHER ==
[~2020-09-06] MED LIST changes: -IRON SUCROSE 300 MG in NS 250 ML OVER 90 MIN. IV ONE; -ONDANSETRON 4MG/2ML VIAL IV ONE; -SODIUM CHLORIDE 0.9% INJ 10 ML SYR IV PRN; -diphenhydrAMINE 50MG/ML VIAL (J1200) IV ONE
[2020-09-06 02:18] LABS: HEMATOCRIT 31.3 % (36.0-47.0); HEMOGLOBIN 8.9 g/dl (12.0-15.5); MEAN CORPUSCULAR HEMOGLOBIN 23.2 pg (27.0-33.0); MEAN CORPUSCULAR HGB CONC 28.4 g/dl (32.0-36.5); MEAN CORPUSCULAR VOLUME 81.7 fl (80.0-96.0); PLATELET COUNT, AUTOMATED 359 10^3/uL (150-450); RED BLOOD COUNT 3.83 10^6/uL (4.00-5.40); WHITE BLOOD COUNT 5.2 10^3/uL (4.0-10.0)
[2020-09-06 02:33] LABS: ALBUMIN 3.9 GM/DL (3.2-5.2); ALT/SGPT 30 U/L (12-78); BILIRUBIN,TOTAL 0.2 MG/DL (0.2-1.0); BLOOD UREA NITROGEN 16 MG/DL (7-18); CARBON DIOXIDE LEVEL 30 MEQ/L (21-32); CHLORIDE LEVEL 108 MEQ/L (98-107); CHOLESTEROL LEVEL 273 MG/DL (<200); CHOLESTEROL RISK RATIO 6.658 (<5); CREATININE FOR GFR 0.84 MG/DL (0.55-1.30); GLOMERULAR FILTRATION RATE > 60.0 (>58); GLUCOSE, FASTING 97 MG/DL (70-100); HDL CHOLESTEROL 41 MG/DL (>40); LDL CHOLESTEROL 193 MG/DL (<100); MAGNESIUM LEVEL 2.1 MG/DL (1.8-2.4); NON-HDL-C 232 MG/DL; PHOSPHORUS LEVEL 4.5 MG/DL (2.5-4.9); POTASSIUM SERUM 4.1 MEQ/L (3.5-5.1); SODIUM LEVEL 142 MEQ/L (136-145); TOTAL PROTEIN 6.8 GM/DL (6.4-8.2); TRIGLYCERIDES LEVEL 196 MG/DL (<150)
== END ==
LOC: M LAB 02:13
PROVIDERS: ATTEND Internal Medicine Gastroenterology
DX: K21.00 Gastro-esophageal reflux disease with esophagitis, without bleeding (principal); K31.84 Gastroparesis; Z98.84 Bariatric surgery status

== ENCOUNTER → 2020-09-10 | Outpatient (REF) | payer BC, OTHER ==
[2020-09-10 12:50] LABS: HEMATOCRIT 28.2 % (36.0-47.0); HEMOGLOBIN 8.2 g/dl (12.0-15.5); MEAN CORPUSCULAR HGB CONC 29.1 g/dl (32.0-36.5); MEAN CORPUSCULAR VOLUME 82.7 fl (80.0-96.0); PLATELET COUNT, AUTOMATED 208 10^3/uL (150-450); RED BLOOD COUNT 3.41 10^6/uL (4.00-5.40); WHITE BLOOD COUNT 6.5 10^3/uL (4.0-10.0)
[2020-09-10 13:20] LABS: ALBUMIN 3.3 GM/DL (3.2-5.2); ALT/SGPT 59 U/L (12-78); BILIRUBIN,TOTAL 0.3 MG/DL (0.2-1.0); BLOOD UREA NITROGEN 6 MG/DL (7-18); CALCIUM LEVEL 8.6 MG/DL (8.5-10.1); CARBON DIOXIDE LEVEL 30 MEQ/L (21-32); CHLORIDE LEVEL 105 MEQ/L (98-107); CHOLESTEROL LEVEL 200 MG/DL (<200); CHOLESTEROL RISK RATIO 5.128 (<5); CREATININE FOR GFR 0.64 MG/DL (0.55-1.30); GLOMERULAR FILTRATION RATE > 60.0 (>58); GLUCOSE, FASTING 129 MG/DL (70-100); HDL CHOLESTEROL 39 MG/DL (>40); LDL CHOLESTEROL 106 MG/DL (<100); MAGNESIUM LEVEL 1.8 MG/DL (1.8-2.4); NON-HDL-C 161 MG/DL; PHOSPHORUS LEVEL 4.2 MG/DL (2.5-4.9); POTASSIUM SERUM 4.1 MEQ/L (3.5-5.1); SODIUM LEVEL 139 MEQ/L (136-145); TRIGLYCERIDES LEVEL 276 MG/DL (<150)
== END ==
LOC: M LAB REF 11:24
PROVIDERS: ATTEND Internal Medicine Gastroenterology
DX: K31.84 Gastroparesis (principal); Z98.84 Bariatric surgery status

== ENCOUNTER 2020-09-14 07:53 | Outpatient (CLI) | payer BC, OTHER ==
[~2020-09-14] VITALS: Ht 195.6 cm; Wt 81.3 kg
[~2020-09-14 07:53] MED LIST changes: +IRON SUCROSE 300 MG in NS 250 ML OVER 90 MIN. IV ONE; +ONDANSETRON 4MG/2ML VIAL IV ONE; +SODIUM CHLORIDE 0.9% INJ 10 ML SYR IV PRN; +SODIUM CHLORIDE 0.9% INJ 10 ML SYR IV SCH; +diphenhydrAMINE 50MG/ML VIAL (J1200) IV ONE
[2020-09-14 07:55] VITALS: BP 135/72
[2020-09-14] MEDS ORDERED: diphenhydrAMINE 50MG/ML VIAL (J1200) IV ONE (08:00)
[2020-09-14] MEDS ORDERED: IRON SUCROSE 300 MG in NS 250 ML OVER 90 MIN. IV ONE (08:00)
[2020-09-14] MEDS ORDERED: ONDANSETRON 4MG/2ML VIAL IV ONE (08:00)
[2020-09-14 09:00] VITALS: BP 115/61
[2020-09-14] MEDS ORDERED: SODIUM CHLORIDE 0.9% INJ 10 ML SYR IV SCH (09:00)
[2020-09-14] MEDS ORDERED: NS 1,000 ML IV SCH (09:30)
[2020-09-14 10:00] VITALS: BP 109/64
[2020-09-14 11:24] VITALS: BP 122/68
[2020-09-14 12:10] VITALS: BP 70/64
== END 2020-09-14 12:10 | disposition home or self-care (01) ==
LOC: M INFU 07:53
PROVIDERS: ATTEND Nurse Practitioner
DX: D64.9 Anemia, unspecified (principal); Z88.1 Allergy status to other antibiotic agents; Z88.2 Allergy status to sulfonamides; Z88.8 Allergy status to other drugs, medicaments and biological substances; Z88.6 Allergy status to analgesic agent
CPT/HCPCS: 96365; 96366; 96375; J1200; J1642; J1756; J2405

== ENCOUNTER 2020-09-21 11:32 | Outpatient (CLI) | payer BC, OTHER ==
[~2020-09-21] VITALS: Ht 165.1 cm; Wt 81.3 kg
[2020-09-21 11:35] VITALS: BP 115/54
[2020-09-21 12:50] VITALS: BP 90/50
[2020-09-21] MEDS ORDERED: NS 1,000 ML IV SCH (13:00)
[2020-09-21 14:40] VITALS: BP 109/58
[2020-09-21] MEDS ORDERED: SODIUM CHLORIDE 0.9% INJ 10 ML SYR IV PRN (15:00)
[2020-09-21 15:15] VITALS: BP 109/58
[2020-09-22] MEDS ORDERED: SODIUM CHLORIDE 0.9% INJ 10 ML SYR IV SCH (09:00)
== END 2020-09-21 15:15 | disposition home or self-care (01) ==
LOC: M INFU 11:32
PROVIDERS: ATTEND Nurse Practitioner
DX: D64.9 Anemia, unspecified (principal); Z88.1 Allergy status to other antibiotic agents; Z88.6 Allergy status to analgesic agent; Z88.8 Allergy status to other drugs, medicaments and biological substances
CPT/HCPCS: 96365; 96366; J1642; J1756

== ENCOUNTER → 2020-10-02 | Outpatient (REF) | payer BC, OTHER ==
[~2020-10-02] MED LIST changes: -IRON SUCROSE 300 MG in NS 250 ML OVER 90 MIN. IV ONE; -ONDANSETRON 4MG/2ML VIAL IV ONE; -SODIUM CHLORIDE 0.9% INJ 10 ML SYR IV PRN; -SODIUM CHLORIDE 0.9% INJ 10 ML SYR IV SCH; -diphenhydrAMINE 50MG/ML VIAL (J1200) IV ONE
[2020-10-02 15:06] LABS: HEMOGLOBIN 10.7 g/dl (12.0-15.5); MEAN CORPUSCULAR HEMOGLOBIN 24.9 pg (27.0-33.0); MEAN CORPUSCULAR HGB CONC 29.7 g/dl (32.0-36.5); MEAN CORPUSCULAR VOLUME 83.9 fl (80.0-96.0); PLATELET COUNT, AUTOMATED 268 10^3/uL (150-450); RED BLOOD COUNT 4.29 10^6/uL (4.00-5.40); WHITE BLOOD COUNT 5.1 10^3/uL (4.0-10.0)
[2020-10-02 15:39] LABS: ALBUMIN 3.7 GM/DL (3.2-5.2); ALT/SGPT 21 U/L (12-78); BILIRUBIN,TOTAL 0.3 MG/DL (0.2-1.0); BLOOD UREA NITROGEN 9 MG/DL (7-18); CARBON DIOXIDE LEVEL 27 MEQ/L (21-32); CHLORIDE LEVEL 109 MEQ/L (98-107); CHOLESTEROL LEVEL 252 MG/DL (<200); GLOMERULAR FILTRATION RATE > 60.0 (>58); GLUCOSE, FASTING 94 MG/DL (70-100); HDL CHOLESTEROL 35 MG/DL (>40); LDL CHOLESTEROL 175 MG/DL (<100); NON-HDL-C 217 MG/DL; POTASSIUM SERUM 3.9 MEQ/L (3.5-5.1); SODIUM LEVEL 140 MEQ/L (136-145); TOTAL PROTEIN 6.3 GM/DL (6.4-8.2); TRIGLYCERIDES LEVEL 209 MG/DL (<150)
== END ==
LOC: M LAB REF 14:51
PROVIDERS: ATTEND Internal Medicine Gastroenterology
DX: K31.84 Gastroparesis (principal); Z98.84 Bariatric surgery status

== ENCOUNTER → 2020-10-09 | Outpatient (CLI) | payer BC, OTHER ==
--- NOTE | 2020-10-09 14:14 | REP ---
INDICATION: FEVER, SOB COMPARISON: 08/15/2020 TECHNIQUE: PA and lateral. FINDINGS: The mediastinum and cardiac silhouette are normal. Double-lumen catheter with tip in the SVC remains stable. The lung snell are clear and without acute consolidation, effusion, or pneumothorax. The skeletal structures are intact and normal. IMPRESSION: No acute cardiopulmonary process. <Electronically signed by Michael James > 10/09/20 [id number]
[2020-10-09 15:07] LABS: BASO % 0.6 % (0.0-1.0); EOS # 0.3 10^3/uL (0.0-0.5); HEMATOCRIT 40.7 % (36.0-47.0); HEMOGLOBIN 12.1 g/dl (12.0-15.5); LYMPH # 1.1 10^3/uL (1.5-5.0); LYMPH % 19.3 % (24.0-44.0); MEAN CORPUSCULAR HEMOGLOBIN 25.2 pg (27.0-33.0); MEAN CORPUSCULAR HGB CONC 29.7 g/dl (32.0-36.5); MEAN CORPUSCULAR VOLUME 84.8 fl (80.0-96.0); MONO # 0.3 10^3/uL (0.0-0.8); MONO % 5.9 % (0.0-5.0); NEUTROPHILS # 3.7 10^3/uL (1.5-8.5); NEUTROPHILS % 68.6 % (36.0-66.0); PLATELET COUNT, AUTOMATED 280 10^3/uL (150-450); WHITE BLOOD COUNT 5.4 10^3/uL (4.0-10.0)
[2020-10-09 15:26] LABS: INR 0.86; PROTHROMBIN TIME 11.9 SECONDS (12.5-14.3)
[2020-10-09 15:28] LABS: D-DIMER QUANT 368.43 ng/ml (<500)
[2020-10-09 15:31] LABS: ALBUMIN 4.1 GM/DL (3.2-5.2); ALT/SGPT 50 U/L (12-78); BILIRUBIN,TOTAL 0.2 MG/DL (0.2-1.0); BLOOD UREA NITROGEN 5 MG/DL (7-18); CALCIUM LEVEL 9.1 MG/DL (8.5-10.1); CARBON DIOXIDE LEVEL 29 MEQ/L (21-32); CHLORIDE LEVEL 105 MEQ/L (98-107); CREATININE FOR GFR 0.71 MG/DL (0.55-1.30); GLOMERULAR FILTRATION RATE > 60.0 (>58); GLUCOSE, FASTING 95 MG/DL (70-100); POTASSIUM SERUM 4.1 MEQ/L (3.5-5.1); SODIUM LEVEL 139 MEQ/L (136-145); TOTAL PROTEIN 6.9 GM/DL (6.4-8.2)
== END ==
LOC: M WUC 13:36
PROVIDERS: ATTEND Nurse Practitioner Family
DX: R50.9 Fever, unspecified (principal); R06.02 Shortness of breath

== ENCOUNTER 2020-11-07 18:04 | Emergency (ER) | payer BC, OTHER ==
[~2020-11-07] VITALS: Ht 170.2 cm; Wt 85.4 kg
[~2020-11-07 18:04] MED LIST changes: +METH-1164; -METH1TAB40
--- OUTSIDE RECORDS SUMMARY | 2020-11-07 18:12 | CCD ---
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 Acti ve 42757641 Problem On total parenteral nutrition (TPN) Z78.9 Acti ve 02063427 Problem Chronically on opiate therapy Z79.899 Active 12 0402394 Problem Gastroesophageal reflux disease without esophagitis K21.9 Active 257207973 Problem 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0 Active 848884560 Problem 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 Active 69 25986 Problem Staphylococcus epidermidis infection B95.7 Act lucia 463342675 Problem Jejunostomy tube present Z93.4 Active 6313393 01 Problem Leukocytosis, unspecified type D72.829 Active 1 25906698 ALLERGIES Allergen (clinical drug ingredient) Drug/Non Drug Allergy do cumented on EMR Reaction Allergy Type Onset Date Status NSAIDS GI Bleed Non Drug Allergy Active TOMATOES Anaphylaxis Non Drug Allergy Active Sulfa (for allergy use only) Anaphylaxis Drug Allergy Active Levaquin Anaphylaxis Drug Allergy Active ENCOUNTERS from 1979 to 2020-10-07 Encounter Location Date Provider Diagnosis [address] [address] Sep, Cait Wyatt IMMUNIZATIONS Vaccine Route Administration Date Status Influenza (6mo & up) Fluzone IM Intramuscular Aug 19, 2014 Ad ministered SOCIAL HISTORY Tobacco Use: Social History Observation Description Date Details (start date - stop date) Never Smoker Sex Assigned At : Social History Observation Description Sex Assigned At Unknown Education: Question Answer Notes Level of Education: Finished High School Audit Question Answer Notes Total Score: 0 Interpretation: Alcohol Education Language: Question Answer Notes Languages spoken: Turkmen Moravian: Question Answer Notes Moravian 33 None Sexual Hx: Question Answer Notes Had sex in the last 12 months (vaginal, oral, or anal)? Yes Have you ever had an STD? No Prevention Strategies discussed: Other with Men only Use protection? No Drug and Alcohol Question Answer Notes Total Score: 0 Interpretation: No problems reported Alcohol Screening: Question Answer Notes Did you have a drink containing alcohol in the past year? No Points 0 Interpretation Negative Tobacco Use: Question Answer Notes Are you a: never smoker REASON FOR REFERRAL No Information VITAL SIGNS No information MEDICATIONS Medication SIG (Take, Route, Frequency, Duration) Notes Start Da te End Date Status Heparin Lock Flush 100 UNIT/ML 500 units Intravenous Daily via P ICC line Mar, Active Nystatin 947858 UNIT/GM 1 application Externally Twice a day for 30 Days Dec, Active Zolpidem Tartrate 10 MG 1 tablet at bedtime as neede d Orally Once a day for 30 Days Aug, Active Promethazine HCl 25 mg 1 suppository as needed Rectal every 12 hrs for n/v Active Zofran 4 MG/2ML 2 mg Intravenous BID prn n/v via PICC Active DiphenhydrAMINE HCl 50 MG/ML 50 mg subcutaneously Merary y as needed for severe nausea, via PICC line Mar, Active HydrOXYzine HCl 25 MG 1 cap Orally every 6 hrs prn itching for 3 0 Days 21 Dec, 2018 Active Oxycodone HCl 1mg 1 ml as needed sunlingual every 6 hrs Active Ventolin HFA 108 (90 Base) MCG/ACT 1 puff as needed In halation every 6 hours prn SOB Mar, Active Albuterol Sulfate (2.5 MG/3ML) 0.083% 3 ml as needed I nhalation every 4 hours as needed for SOB Mar, Active Sucralfate 1 GM/10ML 10 ml on an empty stomach Orally three times benjamin ly Active Sodium Chloride Flush 0.9 % as directed Intravenous vi a PICC inject 10 mLs into the vein as needed( for before and after infusion PRN) Active Enoxaparin Sodium 80 MG/0.8ML INJECT 0.7 ML SUBCUTANEOUSLY TWICE DAILY for 30 Not-Taking Acetaminophen 500 MG 1 tablet as needed Orally every 6 hrs prn p ain Mar, Active Protonix 40 MG 40 mg Intravenous twice a day via PICC Active May Have - Please dispense nebulizer, m ask, and tubing Use per medication instructions for 9998 days Jun, Activ e FLUoxetine HCl 20 MG/5ML 5 ml Orally Once a day for 30 day(s) Aug, Active Lovenox 100 MG/ML 100 mg Subcutaneous every 12 hours for 30 Days Mar, Active Infuvite Adult - 1 vial Intravenous via PICC before bedtime Mar, Active Glucagon 3 MG/DOSE as directed subcutaneously Daily as needed Nov, Active PROCEDURES No Information RESULTS No Results REASON FOR VISIT medication MEDICAL (GENERAL) HISTORY Type Description Date Medical History History of gastric bypass ledesma rgery with complications; short gut syndrome, gastroparesis, GERD - Dr. Bergman and Dr. Mcgovern Medical History Failure to thrive, on chroni c TPN; has Jtube but not absorbing, using for meds only Medical History History of serratia central line infecti on - prev saw Dr. Orozco Medical History Chronic back and abdominal pain - Pallia tive Care, N. Kearsarge Medical History Depression and anxiety Medical History Chronic iron deficiency anemia Medical History Protein S deficiency; previously on love nox Medical History History of thrombocytosis of central amina e Surgical History BACK SURGERY DR GEORGES abraham marissa 08/2013 Surgical History TONSILS Surgical History GASTRIC BYPASS 2008 Surgical History ENDOMETRIAL ABLATION Surgical History Hysterectomy Surgical History Levine catheter 05/21/2014 Surgical History Right leg wound drained-Rosanna 04/2017 Surgical History Left subclavian port 10/2017 Surgical History j-tube placement and removal Surgical History G-tube placement 11/2017 Surgical History subclavian port remove 04/2018 Surgical History PICC line 06/2018 Surgical History Bowel resection AUG-2018 Surgical History Gastric bypas reversal - Dr. Mcgovern 09/2019 Hospitalization History RELATED TO SURGERY Hospitalization History G tube infection 7 days -- Hospitalization History Blood Transfusion 10/[address] [facility] ED- Abdominal pain. 12/10/2018 Hospitalization History Septic Kidney infection 01/11-01/18 Hospitalization History levine infection 05/08 Hospitalization History levine infection 06/2019 Hospitalization History septic infection 10/2019 Hospitalization History wbc high, nausua vomiting 03/2020 Hospitalization History blood clot in lung 07/2020 Goals Section No Information Health Concerns No Information MEDICAL EQUIPMENT No Information MENTAL STATUS No Information FUNCTIONAL STATUS No Information ASSESSMENTS No Information PLAN OF TREATMENT Medication Medication Name Sig Start Date Stop Date Zolpidem Tartrate 10 MG 1 tablet at bedtime as neede d Orally Once a day for 30 Days Aug, Lovenox 100 MG/ML 100 mg Subcutaneous every 12 hours for 30 Days Mar, FLUoxetine HCl 20 MG/5ML 5 ml Orally Once a day for 30 day(s) Aug, HydrOXYzine HCl 25 MG 1 cap Orally every 6 hrs prn itching f or 30 Days Sep, Next Appt Details Provider Name:Cait Wyatt, 2020-10-27 07:15:00 AM, [address] [place], [address], Insurance Providers Payer Name Payer Address Payer Phone Insured Name Patient Relati onship to Insured Coverage Start Date Coverage End Date [facility] [address] [facility] [id number] [phone] [place]bi [place]
--- OUTSIDE RECORDS SUMMARY | 2020-11-07 18:12 | CCD ---
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 Acti ve 91482835 Problem On total parenteral nutrition (TPN) Z78.9 Acti ve 10012379 Problem Chronically on opiate therapy Z79.899 Active 12 0438495 Problem Gastroesophageal reflux disease without esophagitis K21.9 Active 360122784 Problem 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0 Active 366884024 Problem 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 Active 69 49356 Problem Staphylococcus epidermidis infection B95.7 Act lucia 445402383 Problem Jejunostomy tube present Z93.4 Active 1635603 01 Problem Leukocytosis, unspecified type D72.829 Active 1 53706632 ALLERGIES Allergen (clinical drug ingredient) Drug/Non Drug Allergy do cumented on EMR Reaction Allergy Type Onset Date Status NSAIDS GI Bleed Non Drug Allergy Active TOMATOES Anaphylaxis Non Drug Allergy Active Sulfa (for allergy use only) Anaphylaxis Drug Allergy Active Levaquin Anaphylaxis Drug Allergy Active ENCOUNTERS from 1979 to 2020-10-29 Encounter Location Date Provider Diagnosis [address] [address] Oct, Cait Wyatt IMMUNIZATIONS Vaccine Route Administration Date [...] Education Language: Question Answer Notes Languages spoken: Hebrew Tenriism: Question Answer Notes Tenriism 33 None Sexual Hx: Question Answer Notes [...] via P ICC line Mar, Active Nystatin 834451 UNIT/GM 1 application Externally Twice a day [...] hrs prn itching for 3 0 Days Sep, Active Oxycodone HCl 1mg 1 ml as [...] Information RESULTS No Results REASON FOR VISIT no show - pt in hospital MEDICAL (GENERAL) HISTORY Type Description Date Medical [...] abdominal pain - Pallia tive Care, N. Jake Medical History Depression and anxiety Medical History Chronic iron deficiency anemia Medical History Protein S deficiency; previously on love nox Medical History History of thrombocytosis of central amina e Surgical History BACK SURGERY DR GEORGES reno leigh marissa 08/2013 Surgical History TONSILS Surgical History [...] Hospitalization History Blood Transfusion 10/2018 Hospitalization History [facility] ED- Abdominal pain. 12/10/2018 Hospitalization [...] prn itching f or 30 Days Sep, Insurance Providers Payer Name Payer Address Payer Phone Insured Name Patient Relati onship to Insured Coverage Start Date Coverage End Date [facility] [address] [facility] [id number] Obi [place]
--- OUTSIDE RECORDS SUMMARY | 2020-11-07 18:12 | CCD | Continuity of Care Document ---
Author Author Claude TREVIÑO WEIR FISHERMAN Organization Unknown Address [address] [place] [address] [place] [address] Phone [phone] Care Team Providers Care Charge Entry Name Role Phone Cait Wyatt MD AUTM [phone] [employer]M [phone] Problems Active Problems Provider Date Type 2 diabetes mellitus Kelsy Martínez Onset: 10/05/20 10 Acute pancreatitis Onset: Anxiety state Onset: Depressive disorder Onset: Social History Type Date Description Comments Sex Unknown ETOH Use Denies alcohol use Tobacco Use Start: Unknown Patient has never smoked Tobacco Use Start: Unknown The Patient Has Never Vaped Smoking Status Reviewed: 10/09/20 The Patient Has Never Vaped Allergies, Adverse Reactions, Alerts Active Allergies Reaction Severity Comments Date Sulfa hives 10/05/2010 Stadol hives 10/05/2010 Procardia bradycardia 10/05/2010 NSAIDs 01/11/2019 Levaquin Difficulty breathing, Hives, Wheezing 10/09/2020 Medications Active Medications SIG Qnty Indications Ordering Provide r Date Amoxicillin/Clavulanate Potassium 400-57mg/5ML Suspension Rec 10ml Per J tube bid x10 days 200ml R50.9 Ruddy Cullen JR., M.D. 10/09/2020 Carafate 1gm Tablets 1 tab by mouth four times a day (before meals and at bedtime) x2 weeks. do not take within 2 hours of levothyroid Unknown Phenergan 25mg Suppository [address] of rectum q6 hours as needed nausea/vomiting Unknow n Zofran 8mg Tablets every 4 ho urs/prn Unknown Ambien 5mg Tablets 1 tab by mouth every night at bedtime as needed insomnia Unknown Tylenol 325mg Capsules las t dose at 10a Unknown Oxycodone HCL 20mg Tablets q4 h prn Unknown Protonix Unknown Lovenox bid Unknown Immunizations Description No Information Available Vital Signs Date Vital Result Comment 10/09/2020 12:55pm BP Systolic 109 mmHg BP Diastolic 73 mmHg Heart Rate 105 /min Respiratory Rate 16 /min O2 % BldC Oximetry 97 % Body Temperature 97.9 F Weight 154.00 lb Height 67 inches 5'7" BMI (Body Mass Index) 24.1 kg/m2 Pain Level 0 01/11/2019 8:27am BP Systolic 72 mmHg BP Diastolic 50 mmHg Heart Rate 90 /min Respiratory Rate 17 /min O2 % BldC Oximetry 99 % Body Temperature 97.2 F Weight 137.00 lb Height 67 inches 5'7" BMI (Body Mass Index) 21.5 kg/m2 Pain Level 3 Results Description No Information Available Procedures Description No Information Available Medical Devices Description No Information Available Encounters Type Date Location Provider Dx Diagnosis Office Visit 10/09/2020 11:30a Main Office Angelica Treviño NP R50. 9 Fever, unspecified R06.02 Shortness of breath Assessments Date Code Description Provider 10/09/2020 R50.9 Fever, unspecified Angelica simons NP 10/09/2020 R06.02 Shortness of breath Angelica sanchez NP Plan of Treatment No Information Available Functional Status Description No Information Available Mental Status Description No Information Available Referrals Description No Information Available
--- OUTSIDE RECORDS SUMMARY | 2020-11-07 18:12 | CCD ---
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 Acti ve 19305835 Problem On total parenteral nutrition (TPN) Z78.9 Acti ve 15153176 Problem Chronically on opiate therapy Z79.899 Active 12 1999436 Problem Gastroesophageal reflux disease without esophagitis K21.9 Active 934134393 Problem 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0 Active 194316457 Problem 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 Active 69 09511 Problem Staphylococcus epidermidis infection B95.7 Act lucia 371095857 Problem Jejunostomy tube present Z93.4 Active 1849174 01 Problem Leukocytosis, unspecified type D72.829 Active 1 79834633 ALLERGIES Allergen (clinical drug ingredient) Drug/Non Drug Allergy do cumented on EMR Reaction Allergy Type Onset Date Status NSAIDS GI Bleed Non Drug Allergy Active TOMATOES Anaphylaxis Non Drug Allergy Active Sulfa (for allergy use only) Anaphylaxis Drug Allergy Active Levaquin Anaphylaxis Drug Allergy Active ENCOUNTERS from 1979 to 2020-10-28 Encounter Location Date Provider Diagnosis [address] [address] Oct, Cait Wyatt IMMUNIZATIONS Vaccine Route Administration [...] Education Language: Question Answer Notes Languages spoken: Malay Taoist: Question Answer Notes Taoist 33 None Sexual Hx: Question Answer Notes [...] via P ICC line Mar, Active Nystatin 023236 UNIT/GM 1 application Externally Twice a day [...] No Results REASON FOR VISIT no show MEDICAL (GENERAL) HISTORY Type Description Date Medical History [facility]; short gut syndrome, gastroparesis, GERD [...] Hospitalization History Blood Transfusion 10/2018 Hospitalization History [facility] ED- Abdominal pain. 12/10/2018 Hospitalization History Septic [...] Insured Coverage Start Date Coverage End Date [facility] [address] [facility] [id number] Obi [place]
--- OUTSIDE RECORDS SUMMARY | 2020-11-07 18:12 | CCD | Continuity of Care Document ---
Author Author Claude TREVIÑO PRINT SUPPORT SPECIALIST Organization Unknown Address [address] [place] [address] [place] [address] Phone [phone] Care Team Providers Care Director Of Individual Giving Name Role Phone Cait Wyatt MD AUTM [phone] Flex Co Publi AUTM [phone] Problems Active Problems Provider Date Type 2 [...] Index) 21.5 kg/m2 Pain Level 3 Results Test Acquired Date Facility Test Result H/L Range Note Comprehensive Metabolic Profil 10/09/2020 [place] [id number] [phone] Glucose, Fasting 95 mg/dL Normal 70-100 1 Blood Urea Nitrogen 5 mg/dL Low 7-18 Creatinine For GFR 0.71 mg/dL Normal 0.55-1.30 Glomerular Filtration Rate > 60.0 Normal >58 2 Sodium Level 139 mEq/L Normal 136-145 Potassium Serum 4.1 mEq/L Normal 3.5-5.1 Chloride Level 105 mEq/L Normal 98-107 Carbon Dioxide Level 29 mEq/L Normal 21-32 Anion Gap 5 mEq/L Low 8-16 Calcium Level 9.1 mg/dL Normal 8.5-10.1 Ast/Sgot 37 U/L Normal 7-37 Alt/SGPT 50 U/L Normal 12-78 Alkaline Phosphatase 156 U/L High 45-117 Bilirubin,Total 0.2 mg/dL Normal 0.2-1.0 Total Protein 6.9 GM/DL Normal 6.4-8.2 Albumin 4.1 GM/DL Normal 3.2-5.2 Albumin/Globulin Ratio 1.5 Normal 1.2-2.2 CBC With Differential 10/09/2020 [facility] [address] [place] [address] [phone] White Blood Count 5.4 10 Normal 4.0-10.0 Red Blood Count 4.80 10 Normal 4.00-5.40 Hemoglobin 12.1 g/dL Normal 12.0-15.5 Hematocrit 40.7 % Normal 36.0-47.0 Mean Corpuscular Volume 84.8 fl Normal 80.0-96.0 Mean Corpuscular Hemoglobin 25.2 pg Low 27.0-33.0 Mean Corpuscular HGB Conc 29.7 g/dL Low 32.0-36.5 Red Cell Distribution Width 18.8 % High 11.5-14.5 Platelet Count, Automated 280 10 Normal 150-450 Neutrophils % 68.6 % High 36.0-66.0 Lymph % 19.3 % Low 24.0-44.0 [place] % 5.9 % High 0.0-5.0 Eos % 5.0 % High 0.0-3.0 Baso % 0.6 % Normal 0.0-1.0 Immature Granulocyte % 0.6 % Normal 0-3.0 Nucleated Red Blood Cell % 0.0 % Normal 0-0 Neutrophils # 3.7 10 Normal 1.5-8.5 Lymph # 1.1 10 Low 1.5-5.0 [place] # 0.3 10 Normal 0.0-0.8 Eos # 0.3 10 Normal 0.0-0.5 Baso # 0.0 10 Normal 0.0-0.2 Laboratory test finding 10/09/2020 [facility] [address] [place] [address] [phone] Lactic Acid Sepsis Protocol 1.7 mmol/L Normal 0.4- 2.0 3 Culture Blood 10/09/2020 [facility] nter [address] [place] [address] [phone] Blood Culture No growth after <SEE NOTE> 4 Laboratory test finding 10/09/2020 [facility] [address] [place] [address] [phone] D-Dimer Quant 368.43 ng/ml Normal <500 Prothrombin Time/Inr 10/09/2020 [facility] enter [address] [place] [address] [phone] Prothrombin Time 11.9 seconds Normal 12.5-14.3 Inr 0.86 Normal 5 1 see progress note by Angelica Flores Units are mL/min/1.73 m2 Chronic Kidney Disease Staging per NKF: Stage I & II GFR >=60 Normal to Mildly Decreased Stage III GFR 30-59 Moderately Decreased Stage IV GFR 15-29 Severely Decreased Stage V GFR <15 Very Little GFR Left ESRD GFR <15 on QUALITY SYSTEMS ENGINEER 3 note:<nlbl:demographic_chang ed> Y/N query for Sepsis Lactate Rule: Y 4 No growth after 48 hours . A ll specimens observed for 5 days. Results final at that time. No growth after 24 hours . All specimens observed for 5 days. Results final at that time. No Growth after 72 hours. All specimens observed for 5 days. Results final at that time. 5 THERAPUTIC HUMAN INR VALUES INDICATIONS NORMAL RANGES PROPHYLAXIS/TREATMENT OF: VENOUS THROMBOSIS 2.0-3.0 PULMONARY EMBOLISM 2.0-3.0 PREVENTION OF SYSTEMIC EMBOLISM FROM: TISSUE HEART VALVES 2.0-3.0 ACUTE MYOCARDIAL INFARCTION 2.0-3.0 VALVULAR HEART DISEASE 2.0-3.0 ATRIAL FIBRILLATION 2.0-3.0 MECHANICAL VALVES(HIGH RISK) 2.5-3.5 RECURRENT MYOCARDIAL INFARCTION 2.5-3.5 Procedures Description No Information Available Medical Devices [...]
--- OUTSIDE RECORDS SUMMARY | 2020-11-07 18:12 | CCD | Continuity of Care Document ---
Author Author Claude TREVIÑO GERONTOLOGICAL NURSE PRACTITIONER Organization Unknown Address [address] [place] [address] [place] [address] Phone [phone] Care Team Providers Care Painter Aircraft Name Role Phone Cait Wyatt MD AUTM [phone] Flex Co Publi AUTM [phone] Problems Active Problems Provider Date Type 2 [...] H/L Range Note Comprehensive Metabolic Profil 10/09/2020 [place] [id number] [phone] Glucose, Fasting 95 mg/dL Normal 70-100 1 [...] 1.5 Normal 1.2-2.2 CBC With Differential 10/09/2020 [facility] [address] [place] [address] [phone] White Blood Count 5.4 10 Normal 4.0-10.0 [...] 36.0-66.0 Lymph % 19.3 % Low 24.0-44.0 F[place] % 5.9 % High 0.0-5.0 Eos % 5.0 % High 0.0-3.0 Baso % 0.6 % Normal 0.0-1.0 Immature Granulocyte % 0.6 % Normal 0-3.0 Nucleated Red Blood Cell % 0.0 % Normal 0-0 Neutrophils # 3.7 10 Normal 1.5-8.5 Lymph # 1.1 10 Low 1.5-5.0 Fergus # 0.3 10 Normal 0.0-0.8 Eos # 0.3 10 Normal 0.0-0.5 Baso # 0.0 10 Normal 0.0-0.2 Laboratory test finding 10/09/2020 [facility] [address] [place] [address] [phone] Lactic Acid Sepsis Protocol 1.7 mmol/L Normal 0.4- 2.0 3 Culture Blood 10/09/2020 [facility] nter [address] [place] [address] [phone] Blood Culture No growth after <SEE NOTE> 4 Laboratory test finding 10/09/2020 [facility] [address] [place] [address] [phone] D-Dimer Quant 368.43 ng/ml Normal <500 Prothrombin Time/Inr 10/09/2020 [facility] enter [address] [place] [address] [phone] Prothrombin Time 11.9 seconds Normal 12.5-14.3 Inr 0.86 Normal 5 1 see progress note by Angelica Flores Units are mL/min/1.73 m2 Chronic Kidney Disease Staging per NKF: Stage I & II GFR >=60 Normal to Mildly Decreased Stage III GFR 30-59 Moderately Decreased Stage IV GFR 15-29 Severely Decreased Stage V GFR <15 Very Little GFR Left ESRD GFR <15 on APPRENTICESHIP CONSULTANT 3 note:<nlbl:demographic_chang ed> Y/N query for Sepsis Lactate Rule: Y 4 No growth after 72 hours . A ll specimens observed for 5 days. Results final at that time. No growth after 48 hours . All specimens observed for 5 days. Results final at that time. No growth after 24 hours . All specimens observed for 5 days. Results final at that time. NO GROWTH AFTER 5 DAYS 5 THERAPUTIC HUMAN INR VALUES INDICATIONS NORMAL [...]
--- OUTSIDE RECORDS SUMMARY | 2020-11-07 18:12 | CCD | Continuity of Care Document ---
Author Author Claude BUCKNER PA Organization Unknown Address [address] [place] [address] [address], [place] [address] Phone [phone] Problems Description No Information Available Social History Type Date Description Comments Sex Unknown Allergies, Adverse Reactions, Alerts Description No Information Available Medications Description No Information Available Immunizations Description No Information Available Vital Signs Description No Information Available Results Description No Information Available Procedures Description No Information Available Medical Devices Description No Information Available Encounters Type Date Location Provider Dx Diagnosis Office Visit 10/19/2020 2:31a [facility] TROY Young R56.9 Unspecified convulsions Office Visit 10/18/2020 2:37a [facility] Adrian monroe MD R10.84 Generalized abdominal pain R11.14 Bilious vomiting Assessments Date Code Description Provider 10/19/2020 R56.9 Unspecified convulsions TROY Pulliam 10/18/2020 R10.84 Generalized abdominal pain Edward Hernandez MD 10/18/2020 R11.14 Bilious vomiting Adrian carney MD Plan of Treatment No Information Available Functional Status Description No Information Available Mental Status Description No Information Available Referrals Refer to Reason for Referral Status Appt Date Thong Castañeda MD BARIATRIC PROGRAM -had gastr ic bypass reversal and j tube by Dr Mcgovern /follow with Dr Bergman has heartburn and regurgitation LVM for pt for next steps 06/29/20 LVM for pt for next steps 07/07/20 Closed 0 [address] [facility], [address] [address] [phone]
--- OUTSIDE RECORDS SUMMARY | 2020-11-07 18:12 | CCD | Continuity of Care Document ---
Author Author Claude TREVIÑO CIGAR MAKER Organization Unknown Address [address] [place] [address] [place] [address] Phone [phone] Care Team Providers Care Travel Nurse Name Role Phone Cait Wyatt MD AUTM [phone] Flex Co Publi AUTM [phone] Problems Active Problems Provider Date Type 2 [...] H/L Range Note Comprehensive Metabolic Profil 10/09/2020 [place] [id number] [phone] Glucose, Fasting 95 mg/dL Normal 70-100 Blood Urea Nitrogen 5 mg/dL Low 7-18 Creatinine For GFR 0.71 mg/dL Normal 0.55-1.30 Glomerular Filtration Rate > 60.0 Normal >58 1 Sodium Level 139 mEq/L Normal 136-145 Potassium [...] 1.5 Normal 1.2-2.2 CBC With Differential 10/09/2020 [facility] [address] [place] [address] [phone] White Blood Count 5.4 10 Normal 4.0-10.0 [...] 36.0-66.0 Lymph % 19.3 % Low 24.0-44.0 Hunt % 5.9 % High 0.0-5.0 Eos % 5.0 % High 0.0-3.0 Baso % 0.6 % Normal 0.0-1.0 Immature Granulocyte % 0.6 % Normal 0-3.0 Nucleated Red Blood Cell % 0.0 % Normal 0-0 Neutrophils # 3.7 10 Normal 1.5-8.5 Lymph # 1.1 10 Low 1.5-5.0 Hunt # 0.3 10 Normal 0.0-0.8 Eos # 0.3 10 Normal 0.0-0.5 Baso # 0.0 10 Normal 0.0-0.2 Laboratory test finding 10/09/2020 [facility] [address] [place] [address] [phone] Lactic Acid Sepsis Protocol 1.7 mmol/L Normal 0.4- 2.0 2 Laboratory test finding 10/09/2020 [facility] [address] [place] [address] [phone] D-Dimer Quant 368.43 ng/ml Normal <500 Prothrombin Time/Inr 10/09/2020 [facility] [address] [place] [address] [phone] Prothrombin Time 11.9 seconds Normal 12.5-14.3 Inr 0.86 Normal 3 1 Units are mL/min/1.73 m2 Chronic Kidney Disease Staging per NKF: Stage I & II GFR >=60 Normal to Mildly Decreased Stage III GFR 30-59 Moderately Decreased Stage IV GFR 15-29 Severely Decreased Stage V GFR <15 Very Little GFR Left ESRD GFR <15 on COAL WASHER 2 note:<nlbl:[email or web address] ed> Y/N query for Sepsis Lactate Rule: Y 3 THERAPUTIC HUMAN INR VALUES INDICATIONS NORMAL RANGES [...]
--- OUTSIDE RECORDS SUMMARY | 2020-11-07 18:12 | CCD ---
Continuity of Care Document (CCD) Created on: 10/24/2020 Claude Diaz External Reference #: [id number] : [id number] Sex: Female Author Author Claude SON MD Organization Unknown Address [address] [place] [address], [facility] [address] [place] [address] Phone [phone] Problems Description No Information Available Social History Type Date Description Comments Sex Unknown Allergies, Adverse Reactions, Alerts Description No Information Available Medications Description No Information Available Immunizations Description No Information Available Vital Signs Description No Information Available Results Description No Information Available Procedures Description No Information Available Medical Devices Description No Information Available Encounters Type Date Location Provider Dx Diagnosis Office Visit 10/18/2020 2:37a [facility] Adrian monroe MD R10.84 Generalized abdominal pain R11.14 Bilious vomiting Assessments Date Code Description Provider 10/19/2020 R56.9 Unspecified convulsions TROY Pulliam 10/18/2020 R10.84 Generalized abdominal pain Edward Son MD 10/18/2020 R11.14 Bilious vomiting Adrian carney [...] pt for next steps 07/07/20 Closed [address] [place] [address], [address] [place] [address] [phone]
--- OUTSIDE RECORDS SUMMARY | 2020-11-07 18:12 | CCD | Continuity of Care Document ---
Author Author Claude TREVIÑO MATERIALS TECHNICIAN Organization Unknown Address [address] [place] [address] [place] [address] Phone [phone] Care Team Providers Care Teaching Assistant Name Role Phone Cait Wyatt MD AUTM [phone] Flex Co Publi AUTM [phone] Problems Active Problems Provider Date Type 2 [...] SIG Qnty Indications Ordering Provide r Date Carafate 1gm Tablets 1 tab by mouth [...] Medical Devices Description No Information Available Encounters Description No Information Available Assessments Date Code Description Provider 10/09/2020 R50.9 Fever, unspecified Angelica simons NP 10/09/2020 R06.02 Shortness of breath Angelica sanchez NP Plan of Treatment 10/09/2020 - Angelica Treviño NP* R50.9 Fever, unspecified* New Labs:* Comprehensive Metabolic Profil, Ordered: 10/09/20 * CBC With Differential, Ordered: 10/09/20 * Lactic Acid Level, Lactate, Ordered: 10/09/20 * Culture Blood, Ordered: 10/09/20 * Ddimer Quant, Ordered: 10/09/20 * Prothrombin Time/Inr, Ordered: 10/09/20 * R06.02 Shortness of breath Functional Status Description No Information Available Mental Status Description No Information Available Referrals Description No Information Available
--- OUTSIDE RECORDS SUMMARY | 2020-11-07 18:12 | CCD | Summary of Care ---
Author Author [facility] Address Unknown Phone Unavailable Care Team Providers Care Bowling Floor Desk Clerk Name Role Phone Jose Simmons MD PCP Encounter Details Care Team Description Date Type Department 10/17/[address] [facility] TRANSFER CE NTER Encounter [address] [place] [address] Allergies Comments Active Allergy Reactions Severity Noted Date Pt states she cannot swallow after taking this (throat swells) AND SOB Trazodone Anaphylaxis, High 03/04/2017 Other (See Comments) Unknown Reaction Levofloxacin Shortness Of High 03/08/2018 Breath DUE TO GASTRIC BYPASS AND CHRONIC BLEED Nsaids Other (See High 03/08/2018 Comments) Sulfa Antibiotics Shortness Of High 06/30/2013 Breath, Rash Reaction: ANAPHYLAXI Tomato Anaphylaxis High 08/24/2015 documented as of this encounter (statuses as of 11/01/2020) Medications End Date Status Medication Sig Dispensed Refills Start Date Active albuterol (PROVENTIL Inhale 2 0 HFA;VENTOLIN HFA) 108 (90 puffs into 9 Base) MCG/ACT inhaler the lungs every 6 (six) hours as needed Active fluoxetine (PROZAC) 20 MG Take 20 mg by 3 capsule mouth daily 9 Active hydrOXYzine (ATARAX) 25 Take 25 mg by 0 MG tablet mouth every 6 9 (six) hours as needed Active Oxycodone HCl 10 MG TABS Take 10 mg by 0 06/18 mouth every 6 9 (six) hours as needed Active sucralfate (CARAFATE) 1 Take 1 g by 0 GM/10ML suspension mouth Four times daily as needed Active Misc. Devices (DURABLE Use as 1 each 0 MEDICAL EQUIPMENT SEE directed. 9 SIG) XX MISCIndications: Start Anticoagulated, History Peptamen 1.5 of Nadege-en-Y gastric via J-Tube. bypass, Failure to thrive Advance 10 in adult, Chronic ml/hr q 8 hrs narcotic use, Jejunostomy to goal rate tube present of 55 ml/hr x 24 hr. To provide 1,980 kcals and 90 grams protein. Active Ondansetron 4 MG Oral Take 1 tablet 90 tablet 2 Tablet Disintegrating by mouth 9 (ZOFRAN-ODT)Indications: every 8 Nausea (eight) hours as needed for Nausea Active Zolpidem Tartrate 5 MG Take 5 mg by 0 Oral Tablet (AMBIEN) mouth nightly as needed for Sleep Active sodium chloride 0.9 % Inject 1,000 0 11/02/19 2 SOLN 50 mL with ertapenem mg into the 0 1 g SOLR 1,000 mg vein every 24 (twenty-four) hours Active diphenhydrAMINE HCl 50 50 mg by 0 02 MG/ML Injection Solution Given by IV 0 (BENADRYL) route nightly Active Infuvite Adult Inject 1 mL 0 Intravenous Injectable into the vein 0 daily Active Ondansetron HCl 40 Inject 1 mL 0 MG/20ML Injection into the vein 0 Solution (ZOFRAN) daily Active Pantoprazole Sodium 40 MG Inject 40 mg 0 10/21 Intravenous Solution into the vein 0 Reconstituted (PROTONIX) daily Active Enoxaparin Sodium 80 0 MG/0.8ML Subcutaneous 0 Solution (LOVENOX) Active Methadone HCl 5 MG Oral TAKE 1 TABLET 0 Tablet (DOLOPHINE) BY MOUTH 0 TWICE DAILY . DO NOT EXCEED 2 PER 24 HOURS Active Nystatin 097645 UNIT/GM APPLY CREAM 0 External Cream TOPICALLY 0 (MYCOSTATIN) TWICE DAILY Active Sodium Chloride 0.9 % 0 Intravenous Solution 0 Active Misc. Devices (DURABLE Use as 2 each 0 MEDICAL EQUIPMENT SEE directed. 0 SIG) XX MISC Syd-Chaves button gastrostomy tube 6.5 cm length. Active Misc. Devices (DURABLE Use as 1 each 0 MEDICAL EQUIPMENT SEE directed. 0 SIG) XX MISC Enteral feeds: Vital AF 1.2 calorie , 5 bottles per day. (150 per month) Active Misc. Devices (DURABLE Use as 150 each MEDICAL EQUIPMENT SEE directed. 0 SIG) XX MISCIndications: Enteral Gastroparesis, Adult Feeds: Vital failure to thrive AF 1.2 syndrome, Failure to calorie, 5 thrive in adult, bottles per Jejunostomy tube site day(150/month pain, Status post ). With 5 bariatric surgery, months of Functional diarrhea, Body refills. mass index (BMI) 22.0-22.9, adult Active Misc. Devices (DURABLE Use as 90 each MEDICAL EQUIPMENT SEE directed. 0 SIG) XX MISCIndications: Cait gimenez Gastroparesis, Adult Peptide 1.5 failure to thrive Tube Feed syndrome, Failure to 2.84 bottles thrive in adult, a day or 923 Jejunostomy tube site ml a day. pain, Status post (3 bottles a bariatric surgery, day , 90 Functional diarrhea, Body bottles a mass index (BMI) month, with 5 22.0-22.9, adult, Dietary refills) counseling and surveillance, Anticoagulated, History of Nadege-en-Y gastric bypass, On total parenteral nutrition (TPN), Chronic narcotic use Active Misc. Devices (DURABLE Use as 1 each 0 MEDICAL EQUIPMENT SEE directed. AMT 0 SIG) XX MISCIndications: mini one 20 Gastroparesis, Adult fr. 5 cm failure to thrive #[id number] syndrome, Failure to thrive in adult, Jejunostomy tube site pain, Status post bariatric surgery, Functional diarrhea, Body mass index (BMI) 22.0-22.9, adult, Dietary counseling and surveillance, Anticoagulated, History of Nadege-en-Y gastric bypass, On total parenteral nutrition (TPN), Chronic narcotic use Active Misc. Devices (DURABLE Use as 1 each 0 MEDICAL EQUIPMENT SEE directed. 0 SIG) XX MISCIndications: Please draw Status post bariatric the following surgery, Failure to labs weekly: thrive in adult, CMP, Mg, Functional diarrhea, Body Phos, CBC and mass index (BMI) diff, 22.0-22.9, adult, Dietary prealbumin. counseling and And a monthly surveillance, triglyceride. Anticoagulated, History Thank you. of Nadege-en-Y gastric bypass, On total parenteral nutrition (TPN), Chronic narcotic use, Jejunostomy tube present Active Pancrelipase Take 1 900 capsule 1 (Mts-Gqza-Mfry) 2357-0465 capsule by 0 UNIT Oral Capsule Delayed mouth Three Release Particles times daily (Creon)Indications: before meals Pancreatic insufficiency documented as of this encounter (statuses as of 11/01/2020) Active Problems Problem Noted Date Fever 10/27/2019 Acute left flank pain 10/27/2019 GI bleed 09/27/2019 Jejunostomy tube present 09/21/2019 Adult failure to thrive syndrome 07/06/2019 Overview: Added automatically from request for ledesma nidhi [id number] Status post bariatric surgery 07/06/2019 Overview: Added automatically from request for baltazar terrell [id number] Abdominal pain 05/31/2019 Encounter for palliative care 05/11/2019 Overview: 39 year old woman with complex PMH and current medical problems with DNR/DNI directives. PCS consulted to co nfirm directives. SIRS (systemic inflammatory response syndrome) 05/10 Overview: Likely due to anemia and infection. Res olving. Internal jugular (IJ) vein thromboembolism, acute Overview: Associated with Galicia catheter. Diagn osed in February per patient. On lovenox 60 mg BID. PICC in Situ 08/03/2018 Depressed 08/03/2018 Overview: Continue with fluoxetine. Elevated serum creatinine 08/03/2018 Chronic, continuous use of opioids 07/31/2018 Chronic abdominal pain 07/31/2018 Chronic narcotic use 07/04/2018 Overview: On oxycodone at home PICC line infection 07/03/2018 Overview: Febrile up to 101.6 at OSH on arrival. Peripheral blood and catheter cultures there show no growth thus far. Wound culture is pending. Received vancomycin, zosyn, and fluconazole. ID and Surgery evaluated - will continue with vancomycin for 7 days (D4 /7) for exit site infection. Will leave catheter in place at this time. 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 Like ly due to GJ marginal ulcers. Hb of 8.8 on 05/06 and was transfused 2 U at [facility]. Has had extensive workup in the past with Dr. Bergman. Evaluated by GI here, appreciate input - continue with IV PPi and will add carafate for 4 -6 weeks. Will need follow up with Dr. Bergman for outpatient EGD. Continu e with lovenox for now (patient very reluctant to stop this). Hb of 8.3 toda y but patient is having symptoms including dizziness and tachycardia. Guille streeter requests transfusion stating her threshold is Hb of 8. Will transfus e 1 U. 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 Now she has Galicia in place through ich she receives TPN. 07/2018: single balloon enteroscopy jimmy wed luminal obstruction in alimentary limb of jejunum 08/2018: reduction of small bowel volvu martha stemming from prior J tube site 09/2018: had a lower GI bleed and under went bidirectional scope at that time showing tortuous colon, normal muc miryam, and nonbleeding internal and external hemorrhoids 01/2019: small bowel capsule endoscopy was done showing small GJ ulcer and did not pass 04/06/19: colonoscopy done for possible retained capsule. This showed nonbleeding internal hemorrhoids. Termi nal ileum and random colon biopsies were wnl. Continue home oxycodone and home antiem etics. History of Nadege-en-Y gastric bypass 08/03/2018 Overview: Performed in 2008, complicated by gastr oparesis. There is consideration of possibly reversing the bariatric surger y. Patient had follow up with Dr. Mcgovern scheduled for Saturday. Pain around PEG tube site, concen for infection 08/03/2018 09/15/2018 Normocytic anemia 08/03/2018 09/21/2019 Overview: - Monitor Gastric dysfunction 08/02/2018 09/21/2019 Gastrojejunostomy tube dislodgement 07/31/2018 Malfunction of gastrostomy tube 07/31/20182018 On total parenteral nutrition (TPN) 07/04/2018 Thrombocytosis 07/04/2018 09/21/2019 Bacteremia 05/02/2018 07/31/2018 Upper GI bleed 03/09/2018 10/27/2018 Gastric bypass status for obesity 09/21/2019 Marginal ulcer 10/27/2018 documented as of this encounter (statuses as of 11/01/2020) Social History Date Tobacco Use Types Packs/Day Years Used Never Smoker 0 Smokeless Tobacco: Never Used Drinks/Week oz/Week Comments Alcohol Use No Sex Assigned at Date Recorded Not on file Date Recorded COVID-19 Exposure Response 10/17/2020 3:48 PM EST In the last month, have you been in contact with No / Unsure someone who was confirmed or suspected to have Coronavirus / COVID-19? documented as of this encounter Last Filed Vital Signs Not on filedocumented in this encounter Progress Notes * Myrna Abad, STACIE - 10/17/2020 3:45 PM EST I was asked to ascertain bed availability for this patient and have determined t hat no appropriate bed for this individual patient is available at either campus . This includes hallway beds or other accommodations that we would customarily m mert for this individual patient's needs. documented in this encounter Plan of Treatment Care Team Description Date Type [facility] Fariha Yanez MD [address] [place] [address] [phone] 11/29/2020 Office Visit Endocrinology Health Maintenance Due Date Last Done Comments MMR Vaccines (1 of 1 - 01/25/1980 Standard series) Varicella Vaccines (1 of 01/25/1980 2 - 2-dose childhood series) DTaP,Tdap,and Td Vaccines 1986 (1 - Tdap) HIV Screening 01/25/1992 Cervical Cancer Screening 01/25/2000 5 years Influenza Vaccine 07/21/2020 07/21/2013 Pneumococcal Vaccine: 65+ 01/25/2044 Years (1 of 1 - PPSV23) HIB Vaccines Aged Out No longer eligible based on patient's age to complete this topic Hepatitis A Vaccines Aged Out No longer eligibl e based on patient's age to complete this topic Hepatitis B Vaccines Aged Out No longer eligibl e based on patient's age to complete this topic IPV Vaccines Aged Out No longer eligible based on patient's age to complete this topic Pneumococcal Vaccine: Aged Out No longer eligib le based on patient's age to Pediatrics (0 to 5 Years) complete this topic and At-Risk Patients (6 to 64 Years) documented as of this encounter Implants Device Identifier Shelf Expiration Date Model / Serial / L ot Implanted Type Area Manufactur er [id number] / / [id number] Va- Galicia- 9fr 2lumen - [id number] Right: Chest B ROSA M Implanted: Qty: 1 on 04/20/2014 by Sterling Eli MD at [facility]IONAL RADIOLOGY 11/21/2019 [id number] / / [id number] Gi-Syd Gastro Button [id number] - N/A: Stomach HALYA RD [id number] HEALTH Implanted: Qty: 1 on 05/26/2018 by Brayan Ho MD at [facility] 10/17/2022 [id number] / / Va- [place]icia- 9.6 Fr Sl - [id number] Right: Chest B ROSA M Implanted: Qty: 1 on 08/26/2018 by Sterling Eli MD at [facility] 02/17/2022 [id number] / / [id number] Stapler Seamguard [place] 60 - N/A: Abdomen LAW, [id number] OLIVER Torres Implanted: Qty: 1 on 09/01/2019 by + Ramakrishna Mcgovern MD at [facility] 03/21/2020 [id number] / / [id number] Gi- Entuit G-Tube 20fr- Sbrd-20 - N/A: Abdomen [employer]IO [employer] [id number] Implanted: Qty: 1 on 09/01/2019 by Ramakrishna Mcgovern MD at [facility] [id number] / / [id number] Resolution 360 Clip 235cm Bx 1 - [place] [id number] SCIENTIFIC Implanted: Qty: 1 on 09/27/2019 by Dhara Torres MD at [facility] documented as of this encounter Results Not on filedocumented in this encounter Additional Health Concerns Last Indicated Resolved Time Infection Onset Date 03/02/2017 MRSA (Methicillin 03/02/2017 Resistant Staphylococcus aureus) 06/24/2018 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
--- OUTSIDE RECORDS SUMMARY | 2020-11-07 18:13 | CCD | Summary of Care ---
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 Name Role Phone Jose Simmons MD PCP Encounter Details Care Team Description Date Type Department 07/31/2020 [facility] TRANSFER CE NTER Encounter [address] [place] [address] Allergies Comments Active Allergy Reactions Severity Noted [...] as of this encounter (statuses as of 08/15/2020) Medications End Date Status Medication Sig Dispensed [...] (AMBIEN) mouth nightly as needed for Sleep 10/31/2020 Active Dicyclomine HCl 10 MG Take 1 120 capsule 11 10/21 Oral Capsule (BENTYL) capsule by 0 mouth Four times daily Active sodium chloride 0.9 % Inject 1,000 [...] EXCEED 2 PER 24 HOURS Active Nystatin 903738 UNIT/GM APPLY CREAM 0 External Cream TOPICALLY [...] Misc. Devices (DURABLE Use as 150 each 5 MEDICAL EQUIPMENT SEE directed. 0 SIG) XX MISCIndications: Enteral Gastroparesis, Adult Feeds: Vital failure to thrive AF 1.2 syndrome, Failure to calorie, 5 thrive in adult, bottles per Jejunostomy tube site day(150/month pain, Status post ). With 5 bariatric surgery, months of Functional diarrhea, Body refills. mass index (BMI) 22.0-22.9, adult Active Misc. Devices (DURABLE Use as 90 each 5 MEDICAL EQUIPMENT SEE directed. 0 SIG) XX MISCIndications: Cait pernell Gastroparesis, Adult Peptide 1.5 failure to thrive [...] Adult fr. 5 cm failure to thrive #[id number] syndrome, Failure to thrive in adult, Jejunostomy [...] Active Pancrelipase Take 1 900 capsule 1 (Eif-Hqtr-Rlfa) 0888-5398 capsule by 0 UNIT Oral Capsule Delayed mouth Three Release Particles times daily (Creon)Indications: before meals Pancreatic insufficiency documented as of this encounter (statuses as of 08/15/2020) Active Problems Problem Noted Date Fever 10/27/2019 Acute left flank pain 10/27/2019 GI bleed 09/27/2019 Jejunostomy tube present 09/21/2019 Adult failure to thrive syndrome 07/06/2019 Overview: Added automatically from request for baltazar terrell [id number] Status post bariatric surgery 07/06/2019 Overview: Added automatically from request for baltazar terrell [id number] Abdominal pain 05/31/2019 Encounter for palliative care [...] as of this encounter (statuses as of 08/15/2020) Resolved Problems Problem Noted Date Resolved Date [...] as of this encounter (statuses as of 08/15/2020) Social History Date Tobacco Use Types Packs/Day Years Used Never Smoker 0 Smokeless Tobacco: Never Used Drinks/Week oz/Week Comments Alcohol Use No Sex Assigned at Date Recorded Not on file Date Recorded COVID-19 Exposure Response 07/31/2020 8:03 AM EDT In the last month, have you been in contact with No / Unsure someone who was confirmed or suspected to have Coronavirus / COVID-19? documented as of this encounter Last Filed Vital Signs Not on filedocumented in this encounter Progress Notes * Emily Estrada RN - 07/31/2020 7:58 AM EDT I was asked to ascertain bed availability for this patient and have determined t hat no appropriate bed for this individual patient is available at either campus . This includes hallway beds or other accommodations that we would customarily m mert for this individual patient's needs. documented in this encounter Plan of Treatment Care Team Description Date Type Specialty Fariha Yanez MD [address] [place] [address] [phone] 11/29/2020 Office Visit Endocrinology Health Maintenance Due [...] L ot Implanted Type Area Manufactur er [id number] / / [id number] [facility] 2lumen - [id number] Right: Chest B ROSA M Implanted: Qty: 1 on 04/20/2014 by Sterling Eli MD at [facility] INTERVENTIONAL RADIOLOGY 11/21/2019 [id number] / / [id number] Gi-Syd Gastro Button [id number] - N/A: Stomach HALYA RD [id number] HEALTH Implanted: Qty: 1 on 05/26/2018 by Brayan Ho MD at [facility] IN[facility]IENT 10/17/2022 [id number] / / Cee Galicia- 9.6 Fr - [id number] Right: Chest B ROSA M Implanted: Qty: 1 on 08/26/2018 by Sterling Eli MD at [facility] INPATIENT 02/17/2022 [id number] / / [id number] Stapler Seamguard [place] 60 - N/A: Abdomen GORE, [id number] OLIVER L Implanted: Qty: 1 on 09/01/2019 by + Ramakrishna Mcgovern MD at [facility] 03/21/2020 [id number] / / [id number] Gi- Entuit G-Tube 20fr- Sbrd-20 - N/A: Abdomen [employer] [id number] Implanted: Qty: 1 on 09/01/2019 by Ramakrishna Mcgovern MD at [facility] [id number] / / [id number] Resolution 360 Clip 235cm Bx 1 [facility] [id number] SCIENTIFIC Implanted: Qty: 1 on 09/27/2019 by Dhara Torres MD at [facility] documented as of this encounter Results Not on filedocumented in this encounter Additional Health Concerns Last Indicated Resolved Time Infection Onset Date 03/02/2017 MRSA (Methicillin 03/02/2017 Resistant Staphylococcus aureus) 06/24/2018 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
--- OUTSIDE RECORDS SUMMARY | 2020-11-07 18:13 | CCD ---
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 Acti ve 11106592 Problem On total parenteral nutrition (TPN) Z78.9 Acti ve 31199314 Problem Chronically on opiate therapy Z79.899 Active 12 9065488 Problem Gastroesophageal reflux disease without esophagitis K21.9 Active 306840013 Problem 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0 Active 867058976 Problem 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 Active 69 72499 Problem Staphylococcus epidermidis infection B95.7 Act lucia 814428527 Problem Jejunostomy tube present Z93.4 Active 9025458 01 Problem Leukocytosis, unspecified type D72.829 Active 1 01671629 ALLERGIES Allergen (clinical drug ingredient) Drug/Non Drug Allergy do cumented on EMR Reaction Allergy Type Onset Date Status NSAIDS GI Bleed Non Drug Allergy Active TOMATOES Anaphylaxis Non Drug Allergy Active Sulfa (for allergy use only) Anaphylaxis Drug Allergy Active Levaquin Anaphylaxis Drug Allergy Active ENCOUNTERS from 1979 to 2020-10-07 Encounter Location Date Provider Diagnosis [address] [address] Sep, Cait Wyatt Single subsegmental pulmonary embolism w ithout acute cor pulmonale I26.93 IMMUNIZATIONS Vaccine Route Administration Date Status Influenza [...] Education Language: Question Answer Notes Languages spoken: [place] Mosque: Question Answer Notes Mosque 33 None Sexual Hx: Question Answer Notes [...] via P ICC line Mar, Active Nystatin 824896 UNIT/GM 1 application Externally Twice a day [...] Information RESULTS No Results REASON FOR VISIT Lovenox 100 MG/ML Solution MEDICAL (GENERAL) HISTORY Type Description Date Medical [...] abdominal pain - Pallia tive Care, N. [place] Medical History Depression and anxiety Medical History Chronic iron deficiency anemia Medical History Protein S deficiency; previously on love nox Medical History History of thrombocytosis of central amina e Surgical History BACK SURGERY DR KIDWAI decompression leigh marissa 08/2013 Surgical History TONSILS Surgical [...] Hospitalization History Blood Transfusion 10/2018 Hospitalization History [facility] ED- Abdominal pain. 12/10/2018 Hospitalization History Septic Kidney infection 01/11-01/18 Hospitalization History levine infection 05/08 Hospitalization History levine infection 06/2019 Hospitalization History septic infection 10/2019 Hospitalization History wbc high, nausua vomiting 03/2020 Hospitalization History blood clot in lung 07/2020 Goals Section No Information Health Concerns No Information MEDICAL EQUIPMENT No Information MENTAL STATUS No Information FUNCTIONAL STATUS No Information ASSESSMENTS Encounter Date Diagnosis Assessment Notes Treatment Notes Treatm ent Clinical Notes Sep, Single subsegmental pulmonar y embolism without acute cor pulmonale (ICD-10 - I26.93) PLAN OF TREATMENT Medication Medication Name Sig [...] Days Sep, Next Appt Details Provider Name:Cait Leigh Carlos Albertoderrick, 2020-10-27 07:15:00 AM, [address] [place], [address], Insurance Providers Payer Name Payer Address Payer Phone Insured Name Patient Relati onship to Insured Coverage Start Date Coverage End Date [facility] [address] [facility] [id number] [phone] [place]bi [place]
--- OUTSIDE RECORDS SUMMARY | 2020-11-07 18:13 | CCD ---
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 Acti ve 91363005 Problem Iron deficiency anemia due to chronic blood loss D 50.0 Active 879294554 Problem Chronically on opiate therapy Z79.899 Active 12 4700657 Problem Lumbar post-laminectomy syndrome M96.1 Active 519688727 Problem 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 Active 0214733 Problem On total parenteral nutrition (TPN) Z78.9 Acti ve 83601912 Problem Gastroparesis K31.84 Active 402359184 Problem Gastroesophageal reflux disease without esophagitis K21.9 Active 468253110 Problem Depression with anxiety F41.8 Active 35902160 Problem Pulmonary nodules R91.8 Active 026910691 Problem Short gut syndrome K91.2 Active 65788609 Problem Leukocytosis, unspecified type D72.829 Active 1 94634689 Problem Psychophysiological insomnia F51.04 Active 425 500271 Problem Anemia, chronic disease D63.8 Active 82385537 6 Problem S/P gastric bypass Z98.84 Active 808567542 Problem Adult failure to thrive R62.7 Active 17903374 1 Problem 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 Active 69 45823 Problem Staphylococcus epidermidis infection B95.7 Act lucia 389293703 Problem Jejunostomy tube present Z93.4 Active 7195138 01 ALLERGIES Allergen (clinical drug ingredient) Drug/Non Drug Allergy do cumented on EMR Reaction Allergy Type Onset Date Status NSAIDS GI Bleed Non Drug Allergy Active TOMATOES Anaphylaxis Non Drug Allergy Active Sulfa (for allergy use only) Anaphylaxis Drug Allergy Active Levaquin Anaphylaxis Drug Allergy Active ENCOUNTERS from 1979 to 2020-08-15 Encounter Location Date Provider Diagnosis [facility] [address] [place] [address] Jul, Cait Wyatt IMMUNIZATIONS Vaccine Route Administration Date [...] Education Language: Question Answer Notes Languages spoken: Uzbek Bahai: Question Answer Notes Bahai 33 None Sexual Hx: Question Answer Notes [...] MEDICATIONS Medication SIG (Take, Route, Frequency, Duration) Start Date En d Date Status Sodium Chloride Flush 0.9 % as directed Intravenous vi a PICC inject 10 mLs into the vein as needed( for before and after infusion PRN) Active Promethazine HCl 25 mg 1 suppository as needed Rectal every 12 hrs for n/v Active Infuvite Adult - 1 vial Intravenous via PICC before bedtime Mar, Active Albuterol Sulfate (2.5 MG/3ML) 0.083% 3 ml as needed I nhalation every 4 hours as needed for SOB Mar, Active Zolpidem Tartrate 5 MG 1.5 tablet at bedtime Orally Once a d ay for 30 Days Apr, Active Zofran 4 MG/2ML 2 mg Intravenous BID prn n/v via PICC Active DiphenhydrAMINE HCl 50 MG/ML 50 mg subcutaneously Merary y as needed for severe nausea, via PICC line Mar, Active Protonix 40 MG 40 mg Intravenous twice a day via PICC Active HydrOXYzine HCl 25 mg 1 cap Orally every 6 hrs prn itching Sep, Active Ventolin HFA 108 (90 Base) MCG/ACT 1 puff as needed In halation every 6 hours prn SOB Mar, Active Glucagon 3 MG/DOSE as directed subcutaneously Daily as needed 2019 Active Acetaminophen 500 MG 1 tablet as needed Orally every 6 hrs p rn pain Mar, Active Lovenox 80 MG/0.8ML 0.7 ml Subcutaneous every 12 hours Mar, Active May Have - Please dispense nebulizer, m ask, and tubing Use per medication instructions for 9999 days Jun, Active Fluoxetine HCl 20 MG 1 capsule Orally Once a day Jul, Active Sucralfate 1 GM/10ML 10 ml on an empty stomach Orally three times d aily Active Oxycodone HCl 1mg 1 ml as needed sunlingual every 6 hrs Active Enoxaparin Sodium 80 MG/0.8ML INJECT 0.7 ML SUBCUTANEOUSLY TWICE DAILY for 30 Active Heparin Lock Flush 100 UNIT/ML 500 units Intravenous Daily v ia PICC line Mar, Active Nystatin 740392 UNIT/GM 1 application Externally Twice a day for 30 Days Dec, Active PROCEDURES No Information RESULTS No Results REASON FOR VISIT Area to right leg, fever MEDICAL (GENERAL) HISTORY Type Description Date Medical [...] Hospitalization History G tube infection 7 days -09-07 Hospitalization History Blood Transfusion 10/2018 Hospitalization History [facility] ED- Abdominal pain. 12/10/2018 Hospitalization History Septic Kidney infection 01/11-01/18 Hospitalization History levine infection 05/08 Hospitalization History levine infection 06/2019 Hospitalization History septic infection 10/2019 Hospitalization History wbc high, nausua vomiting 03/2020 Goals Section No Information Health Concerns No Information MEDICAL EQUIPMENT No Information MENTAL STATUS No Information FUNCTIONAL STATUS No Information ASSESSMENTS No Information PLAN OF TREATMENT Medication Medication Name Sig Start Date Stop Date Nystatin 172596 UNIT/GM 1 application Externally Twice a day for 30 Days Dec, Enoxaparin Sodium 80 MG/0.8ML INJECT 0.7 ML SUBCUTANEOUSLY TWICE DAILY for 30 Zolpidem Tartrate 5 MG 1.5 tablet at bedtime Orally Once a d ay for 30 Days Apr, Insurance Providers Payer Name Payer Address Payer Phone Insured Name Patient Relati onship to Insured Coverage Start Date Coverage End Date [facility] [address] [facility] [id number] Obi [place]
--- OUTSIDE RECORDS SUMMARY | 2020-11-07 18:13 | CCD ---
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 Acti ve 24009938 Problem Iron deficiency anemia due to chronic blood loss D 50.0 Active 462551471 Problem Chronically on opiate therapy Z79.899 Active 12 9855038 Problem Lumbar post-laminectomy syndrome M96.1 Active 896900942 Problem 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 Active 2962389 Problem On total parenteral nutrition (TPN) Z78.9 Acti ve 68781636 Problem Gastroparesis K31.84 Active 523358476 Problem Gastroesophageal reflux disease without esophagitis K21.9 Active 884885794 Problem Depression with anxiety F41.8 Active 83045577 Problem Pulmonary nodules R91.8 Active 542059463 Problem Short gut syndrome K91.2 Active 06661658 Problem Leukocytosis, unspecified type D72.829 Active 1 24907442 Problem Psychophysiological insomnia F51.04 Active 425 277870 Problem Anemia, chronic disease D63.8 Active 50330092 6 Problem S/P gastric bypass Z98.84 Active 636849515 Problem Adult failure to thrive R62.7 Active 60744328 1 Problem 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 Active 69 84455 Problem Staphylococcus epidermidis infection B95.7 Act lucia 909231081 Problem Jejunostomy tube present Z93.4 Active 6328710 01 ALLERGIES Allergen (clinical drug ingredient) Drug/Non Drug Allergy do cumented on EMR Reaction Allergy Type Onset Date Status NSAIDS GI Bleed Non Drug Allergy Active TOMATOES Anaphylaxis Non Drug Allergy Active Sulfa (for allergy use only) Anaphylaxis Drug Allergy Active Levaquin Anaphylaxis Drug Allergy Active ENCOUNTERS from 1979 to 2020-08-18 Encounter Location Date Provider Diagnosis [facility] [address] [place] [address] Jul, Cait Wyatt IMMUNIZATIONS Vaccine Route Administration [...] Education Language: Question Answer Notes Languages spoken: Georgian Faith: Question Answer Notes Faith 33 None Sexual Hx: Question Answer Notes [...] v ia PICC line Mar, Active Nystatin 045745 UNIT/GM 1 application Externally Twice a day for 30 Days Dec, Active PROCEDURES No Information RESULTS No Results REASON FOR VISIT schedule hospital f/u MEDICAL (GENERAL) HISTORY Type Description Date Medical [...] Hospitalization History G tube infection 7 days 07-31-18 Hospitalization History Blood Transfusion 10/2018 Hospitalization History [facility] ED- Abdominal pain. 12/10/2018 Hospitalization History [...] Name Sig Start Date Stop Date Nystatin 561692 UNIT/GM 1 application Externally Twice a day for 30 Days Dec, Enoxaparin Sodium 80 MG/0.8ML INJECT 0.7 ML SUBCUTANEOUSLY TWICE DAILY for 30 Zolpidem Tartrate 5 MG 1.5 tablet at bedtime Orally Once a d ay for 30 Days Apr, Next Appt Details Provider Name:Cait Leigh Carlos Albertoderrick, 2020-08-25 11:15:00 AM, [address] [place], [address], Insurance Providers Payer Name Payer Address Payer Phone Insured Name Patient Relati onship to Insured Coverage Start Date Coverage End Date [facility] [address] [facility] [id number] [phone] Obi [place]
--- OUTSIDE RECORDS SUMMARY | 2020-11-07 18:13 | CCD ---
Author Author [facility] [employer] 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 Acti ve 10445531 Problem On total parenteral nutrition (TPN) Z78.9 Acti ve 27132269 Problem Chronically on opiate therapy Z79.899 Active 12 2207726 Problem Gastroesophageal reflux disease without esophagitis K21.9 Active 102502512 Problem 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0 Active 238459393 Problem 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 Active 69 36289 Problem Staphylococcus epidermidis infection B95.7 Act lucia 240978678 Problem Jejunostomy tube present Z93.4 Active 8757011 01 Problem Leukocytosis, unspecified type D72.829 Active 1 58794639 ALLERGIES Allergen (clinical drug ingredient) Drug/Non Drug Allergy do cumented on EMR Reaction Allergy Type Onset Date Status NSAIDS GI Bleed Non Drug Allergy Active TOMATOES Anaphylaxis Non Drug Allergy Active Sulfa (for allergy use only) Anaphylaxis Drug Allergy Active Levaquin Anaphylaxis Drug Allergy Active ENCOUNTERS from 1979 to 2020-09-01 Encounter Location Date Provider Diagnosis [address] [address] Aug, Cait Wyatt Single subsegmental pulmonary embolism w ithout acute cor pulmonale I26.93 ; Depression with anxiety F41.8 ; Psychophysiological insomnia F51.04 and Jejunostomy tube present Z93.4 IMMUNIZATIONS Vaccine Route Administration Date Status Influenza [...] Education Language: Question Answer Notes Languages spoken: Honduran Mormon: Question Answer Notes Mormon 32 None Sexual Hx: Question Answer Notes [...] REASON FOR REFERRAL No Information VITAL SIGNS Weight 179 lbs Aug, Height 66 in Aug, BMI 28.89 kg/m2 Aug, Heart Rate 109 /min Aug, Respiratory Rate 18 /min Aug, Temperature 97.3 degrees Fahrenheit Aug, Oximetry 99 Aug, Blood pressure systolic 100 mm Hg Aug, Blood pressure diastolic 56 mm Hg Aug, MEDICATIONS Medication SIG (Take, Route, Frequency, Duration) Start Date En d Date Status Zofran 4 MG/2ML 2 mg Intravenous BID prn n/v via PICC Active Heparin Lock Flush 100 UNIT/ML 500 units Intravenous Daily v ia PICC line Mar, Active Lovenox 100 MG/ML 100 mg Subcutaneous every 12 hours for 30 Days Mar, Active Sodium Chloride Flush 0.9 % as directed Intravenous vi a PICC inject 10 mLs into the vein as needed( for before and after infusion PRN) Active Zolpidem Tartrate 10 MG 1 tablet at bedtime as neede d Orally Once a day for 30 Days Aug, Active Enoxaparin Sodium 80 MG/0.8ML INJECT 0.7 ML SUBCUTANEOUSLY TWICE DAILY for 30 Not-Taking HydrOXYzine HCl 25 MG 1 cap Orally every 6 hrs prn itching f or 30 Days Sep, Active Ventolin HFA 108 (90 Base) MCG/ACT 1 puff as needed In halation every 6 hours prn SOB Mar, Active DiphenhydrAMINE HCl 50 MG/ML 50 mg subcutaneously Merary y as needed for severe nausea, via PICC line Mar, Active Oxycodone HCl 1mg 1 ml as needed sunlingual every 6 hrs Active May Have - Please dispense nebulizer, m ask, and tubing Use per medication instructions for 9998 Jun, Active Sucralfate 1 GM/10ML 10 ml on an empty stomach Orally three times d aily Active Infuvite Adult - 1 vial Intravenous via PICC before bedtime Mar, Active Glucagon 3 MG/DOSE as directed subcutaneously Daily as needed 2019 Active Promethazine HCl 25 mg 1 suppository as needed Rectal every 12 hrs for n/v Active Acetaminophen 500 MG 1 tablet as needed Orally every 6 hrs p rn pain Mar, Active FLUoxetine HCl 20 MG/5ML 5 ml Orally Once a day for 30 day(s) 05 No 2019 Active Albuterol Sulfate (2.5 MG/3ML) 0.083% 3 ml as needed I nhalation every 4 hours as needed for SOB Mar, Active Protonix 40 MG 40 mg Intravenous twice a day via PICC Active Nystatin 507977 UNIT/GM 1 application Externally Twice a day for 30 Days Dec, Active PROCEDURES No Information RESULTS No Results REASON FOR VISIT TCM 14 F/U [facility] admission 08/15- 08/16 for PE and possible pneumonia, Reference # : [id number] last fill 08/05/2020 MEDICAL (GENERAL) HISTORY Type Description Date Medical [...] abdominal pain - [facility] Medical History Depression and anxiety Medical History [...] Hospitalization History Blood Transfusion 10/2018 Hospitalization History [facility] ED- Abdominal pain. 12/10/2018 Hospitalization [...] STATUS No Information ASSESSMENTS Encounter Date Diagnosis Notes Aug, Jejunostomy tube present (ICD-10 - Z93.4 ) Aug, Single subsegmental pulmonar y embolism without acute cor pulmonale (ICD-10 - I26.93) Aug, Psychophysiological insomnia (ICD-10 - F 51.04) Aug, Depression with anxiety (ICD-10 - F41.8) PLAN OF TREATMENT Medication Medication Name Sig Start Date Stop Date Lovenox 100 MG/ML 100 mg Subcutaneous every 12 hours for 30 Days Mar, Zolpidem Tartrate 10 MG 1 tablet at bedtime as neede d Orally Once a day for 30 Days Aug, FLUoxetine HCl 20 MG/5ML 5 ml Orally Once a day for 30 day(s) Aug, HydrOXYzine HCl 25 MG 1 cap Orally every 6 hrs prn itching f or 30 Days Sep, Treatment Notes Assessment Notes Clinical Notes Single subsegmental pulmonary embolism without acute cor pul monale Continue with increased dose of Lovenox and f/u with hematology as scheduled. I advised the patient that it will take time for SOB and fatigue to improve. Depression with anxiety Unable to do liq uid hydroxyzine due to history of allergy to levofloxacin; she has taken liquid fluoxetine in the past without a problem. Jejunostomy tube present Unable to presc ribe silvadene as requested by patient due to history of allergy to Sulfa and Levaquin; she will continue with her usual barrier creams. Next Appt Details 2 months Reason:F/u med prob Provider Name:Cait Wyatt, 2020-10-27 07:15:00 AM, [address] [place], [address], Follow Up:2 monthsF/u med prob Insurance Providers Payer Name Payer Address Payer Phone Insured Name Patient Relati onship to Insured Coverage Start Date Coverage End Date [employer] [address] [facility] [id number] [place]
--- OUTSIDE RECORDS SUMMARY | 2020-11-07 18:19 | CCD ---
Author Author [facility] Organization [facility] Address Unknown Phone Unavailable Care Team Providers Care Dramatic Coach Name Role Phone Renuka, Aden Kim MD Unavailable Unavailable Renuka, Aden Kim MD Unavailable Unavailable Renuka, Aden Kim MD Unavailable Unavailable Renuka, Aden Kim MD Unavailable Unavailable Renuka, Aden Kim MD Unavailable Unavailable Renuka, Aden Kim MD Unavailable Unavailable Renuka, Aden Kim MD Unavailable Unavailable Renuka, Aden Kim MD Unavailable Unavailable Renuka, Aden Kim MD Unavailable Unavailable Renuka, Aden Kim MD Unavailable Unavailable Renuka, Aden Kim MD Unavailable Unavailable Renuka, Aden Kim MD Unavailable Unavailable Renuka, Aden Kim MD Unavailable Unavailable Renuka, Aden Kim MD Unavailable Unavailable Renuka, Aden Kim MD Unavailable Unavailable Renuka, Aden Kim MD Unavailable Unavailable Renuka, Aden Kim MD Unavailable Unavailable Renuka, Aden Kim MD Unavailable Unavailable Renuka, Aden Kim MD Unavailable Unavailable Renuka, Aden Kim MD Unavailable Unavailable Renuka, Aden Kim MD Unavailable Unavailable Renuka, Aden Kim MD Unavailable Unavailable Renuka, Aden Kim MD Unavailable Unavailable Renuka, Aden Kim MD Unavailable Unavailable Renuka, Aden Kim MD Unavailable Unavailable Renuka, Aden Kim MD Unavailable Unavailable Renuka, Aden Kim MD Unavailable Unavailable Renuka, Aden Kim MD Unavailable Unavailable Renuka, A Julio LAKHANI Unavailable Unavailable Renuka, A Julio LAKHANI Unavailable Unavailable Renuka, A Julio LAKHANI Unavailable Unavailable Renuka, A Julio LAKHANI Unavailable Unavailable Renuka, A Julio LAKHANI Unavailable Unavailable Renuka, A Julio LAKHANI Unavailable Unavailable Renuka, A Julio LAKHANI Unavailable Unavailable Renuka, A Julio LAKHANI Unavailable Unavailable Renuka, A Julio LAKHANI Unavailable Unavailable Renuka, A Julio LAKHANI Unavailable Unavailable Renuka, A Julio LAKHANI Unavailable Unavailable Renuka, A Julio LAKHANI Unavailable Unavailable Renuka, A Julio LAKHANI Unavailable Unavailable Renuka, A Julio LAKHANI Unavailable Unavailable Renuka, A Julio LAKHANI Unavailable Unavailable Renuka, A Julio LAKHANI Unavailable Unavailable Renuka, A Julio LAKHANI Unavailable Unavailable Renuka, A Julio LAKHANI Unavailable Unavailable Renuka, A Julio LAKHANI Unavailable Unavailable Renuka, A Julio LAKHANI Unavailable Unavailable Renuka, A Julio LAKHANI Unavailable Unavailable Renuka, A Julio LAKHANI Unavailable Unavailable Renuka, A Julio LAKHANI Unavailable Unavailable Renuka, A Julio LAKHANI Unavailable Unavailable Renuka, A Julio LAKHANI Unavailable Unavailable Renuka, A Julio LAKHANI Unavailable Unavailable Renuka, A Julio LAKHANI Unavailable Unavailable Renuka, A Julio LAKHANI Unavailable Unavailable Renuka, A Julio LAKHANI Unavailable Unavailable Renuka, A Julio LAKHANI Unavailable Unavailable Renuka, A Julio LAKHANI Unavailable Unavailable Renuka, A Julio LAHKANI Unavailable Unavailable Renuka, A Julio LAKHANI Unavailable Unavailable Renuka, A Julio LAKHANI Unavailable Unavailable Renuka, A Julio LAKHANI Unavailable Unavailable Renuka, A Juloi LAKHANI Unavailable Unavailable Renuka, A Julio LAKHANI Unavailable Unavailable Renuka, A Julio LAKHANI Unavailable Unavailable Renuka, A Julio LAKHANI Unavailable Unavailable Renuka, A Julio LAKHANI Unavailable Unavailable Renuka, A Julio LAKHANI Unavailable Unavailable Renuka, A Julio LAKHANI Unavailable Unavailable Renuka, A Julio LAKHANI Unavailable Unavailable Renuka, A Julio LAKHANI Unavailable Unavailable Renuka, A Julio LAKHANI Unavailable Unavailable Renuka, A Julio LAKHANI Unavailable Unavailable Renuka, A Julio LAKHANI Unavailable Unavailable Renuka, A Julio LAKHANI Unavailable Unavailable Renuka, A Julio LAKHANI Unavailable Unavailable Renuka, A Julio LAKHANI Unavailable Unavailable Renuka, A Julio LAKHANI Unavailable Unavailable Renuka, A Julio LAKHNAI Unavailable Unavailable Renuka, A Julio LAKHANI Unavailable Unavailable Renuka, A Julio LAKHANI Unavailable Unavailable Renuka, A Julio LAKHANI Unavailable Unavailable Renuka, A Julio LAKHANI Unavailable Unavailable Renuka, A Julio LAKHANI Unavailable Unavailable Renuka, A Julio LAKHANI Unavailable Unavailable Renuka, A Julio LAKHANI Unavailable Unavailable Renuka, A Julio LAKHANI Unavailable Unavailable Renuka, A Julio LAKHANI Unavailable Unavailable Renuka, A Julio LAKHANI Unavailable Unavailable Renuka, A Julio LAKHANI Unavailable Unavailable Renuka, Aden Kim MD Unavailable Unavailable Renuka, Aden Kim MD Unavailable Unavailable Renuka, Aden Kim MD Unavailable Unavailable Renuka, Aden Kim MD Unavailable Unavailable Renuka, Aden Kim MD Unavailable Unavailable Renuka, Aden Kim MD Unavailable Unavailable Renuka, Aden Kim MD Unavailable Unavailable Renuka, Aden Kim MD Unavailable Unavailable Renuka, Aden Kim MD Unavailable Unavailable Renuka, Aden Kim MD Unavailable Unavailable Renuka, Aden Kim MD Unavailable Unavailable Renuka, Aden Kim MD Unavailable Unavailable Renuka, Aden Kim MD Unavailable Unavailable LAHIJI, SONYA Unavailable Unavailable LAHIJI, SONYA Unavailable Unavailable Goldiner, Lev Unavailable Unavailable Goldiner, Lev Unavailable Unavailable Goldiner, Lev Unavailable Unavailable Goldiner, Lev Unavailable Unavailable Goldiner, Lev Unavailable Unavailable Goldiner, Lev Unavailable Unavailable Goldiner, Lev Unavailable Unavailable Goldiner, Lev Unavailable Unavailable Goldiner, Lev Unavailable Unavailable Goldiner, Lev Unavailable Unavailable Goldiner, Lev Unavailable Unavailable Goldiner, Lev Unavailable Unavailable Goldiner, Lev Unavailable Unavailable Goldiner, Lev Unavailable Unavailable Goldiner, Lev Unavailable Unavailable Goldiner, Lev Unavailable Unavailable Goldiner, Lev Unavailable Unavailable Goldiner, Lev Unavailable Unavailable Goldiner, Lev Unavailable Unavailable Goldiner, Lev Unavailable Unavailable Goldiner, Lev Unavailable Unavailable Goldiner, Lev Unavailable Unavailable Goldiner, Lev Unavailable Unavailable Goldiner, Lev Unavailable Unavailable Goldiner, Lev Unavailable Unavailable Goldiner, Lev Unavailable Unavailable Goldiner, Lev Unavailable Unavailable Goldiner, Lev Unavailable Unavailable Goldiner, Lev Unavailable Unavailable Goldiner, Lev Unavailable Unavailable Goldiner, Lev Unavailable Unavailable Goldiner, Lev Unavailable Unavailable Goldiner, Lev Unavailable Unavailable Goldiner, Lev Unavailable Unavailable Goldiner, Lev Unavailable Unavailable Goldiner, Lev Unavailable Unavailable Goldiner, Lev Unavailable Unavailable Goldiner, Lev Unavailable Unavailable Goldiner, Lev Unavailable Unavailable Goldiner, Lev Unavailable Unavailable Goldiner, Lev Unavailable Unavailable Goldiner, Lev Unavailable Unavailable Goldiner, Lev Unavailable Unavailable Goldiner, Lev Unavailable Unavailable Goldiner, Lev Unavailable Unavailable Thong Castañeda MD Unavailable Unavailable Thong Castañeda MD Unavailable Unavailable Thong Castañeda MD Unavailable Unavailable Thong Castañeda MD Unavailable Unavailable Thong Castañeda MD Unavailable Unavailable Thong Castañeda MD Unavailable Unavailable Thong Castañeda MD Unavailable Unavailable Thong Castañeda MD Unavailable Unavailable Thong Castañeda MD Unavailable Unavailable Thong Castañeda MD Unavailable Unavailable Thong Castañeda MD Unavailable Unavailable Thong Castañeda MD Unavailable Unavailable Thong Castañeda MD Unavailable Unavailable Thong Castañeda MD Unavailable Unavailable Thong Castañeda MD Unavailable Unavailable Thong Castañeda MD Unavailable Unavailable Thong Castañeda MD Unavailable Unavailable Thong Castañeda MD Unavailable Unavailable Thong Castañeda MD Unavailable Unavailable Thong Castañeda MD Unavailable Unavailable Thong Castañeda MD Unavailable Unavailable Thong Castañeda MD Unavailable Unavailable Thong Castañeda MD Unavailable Unavailable Thong Castañeda MD Unavailable Unavailable Thong Castañeda MD Unavailable Unavailable Thong Castañeda MD Unavailable Unavailable Thong Castañeda MD Unavailable Unavailable Thong Castañeda MD Unavailable Unavailable Thong Castañeda MD Unavailable Unavailable Thong Castañeda MD Unavailable Unavailable Thong Castañeda MD Unavailable Unavailable Thong Castañeda MD Unavailable Unavailable Thong Castañeda MD Unavailable Unavailable hTong Castañeda MD Unavailable Unavailable Thong Castañeda MD Unavailable Unavailable Thong Castañeda MD Unavailable Unavailable Thong Castañeda MD Unavailable Unavailable Thong Castañeda MD Unavailable Unavailable Thong Castañeda MD Unavailable Unavailable Thong Castañeda MD Unavailable Unavailable Thong Castañeda MD Unavailable Unavailable Thong Castañeda MD Unavailable Unavailable Thong Castañeda MD Unavailable Unavailable Thong Castañeda MD Unavailable Unavailable Thong Castañeda MD Unavailable Unavailable Thong Castañeda MD Unavailable Unavailable Thong Castañeda MD Unavailable Unavailable Thong Castañeda MD Unavailable Unavailable Thong Castañeda MD Unavailable Unavailable Thong Castañeda MD Unavailable Unavailable Thong Castañeda MD Unavailable Unavailable Thong Castañeda MD Unavailable Unavailable Thong Castañeda MD Unavailable Unavailable Thong Castañeda MD Unavailable Unavailable Thong Castañeda MD Unavailable Unavailable Thong Castañeda MD Unavailable Unavailable Thong Castañeda MD Unavailable Unavailable Thong Castañeda MD Unavailable Unavailable Thong Castañeda MD Unavailable Unavailable Thong Castañeda MD Unavailable Unavailable Thong Castañeda MD Unavailable Unavailable Thong Castañeda MD Unavailable Unavailable Thong Castañeda MD Unavailable Unavailable Thong Castañeda MD Unavailable Unavailable Thong Castañeda MD Unavailable Unavailable Thong Castañeda MD Unavailable Unavailable Thong Castañeda MD Unavailable Unavailable Thong Castañeda MD Unavailable Unavailable Thong Castañeda MD Unavailable Unavailable Thong Castañeda MD Unavailable Unavailable Thong Castañeda MD Unavailable Unavailable Thong Castañeda MD Unavailable Unavailable Thong Castañeda MD Unavailable Unavailable Thong Castañeda MD Unavailable Unavailable Thong Castañeda MD Unavailable Unavailable Thong Castañeda MD Unavailable Unavailable Thong Castañeda MD Unavailable Unavailable Thong Castañeda MD Unavailable Unavailable Thong Castañeda MD Unavailable Unavailable Morena Torres MD Unavailable Unavailable Morena Torres MD Unavailable Unavailable Brian K [place] LAKHANI Unavailable Unavailable Brian K [place] LAKHANI Unavailable Unavailable Brian, K Mich LAKHANI Unavailable Unavailable Brian, K Mich LAKHANI Unavailable Unavailable Brian, K Mich LAKHANI Unavailable Unavailable Brian K Mihc LAKHANI Unavailable Unavailable Brian, K Mich MD Unavailable Unavailable Brian, K Mich MD Unavailable Unavailable Brian, K Mich MD Unavailable Unavailable Henning-Frank, Dinesh Unavailable Unavailable Henning-Frank, Dinesh Unavailable Unavailable Henning-Frank, Dinesh Unavailable Unavailable Henning-Frank, Dinesh Unavailable Unavailable Henning-Frank, Dinesh Unavailable Unavailable Henning-Frank, Dinesh Unavailable Unavailable Henning-Frank, Dinesh Unavailable Unavailable Henning-Frank, Dinesh Unavailable Unavailable Henning-Frank, Dinesh Unavailable Unavailable Henning-Frank, Dinesh Unavailable Unavailable Henning-Frank, Dinesh Unavailable Unavailable Henning-Frank, Dinesh Unavailable Unavailable PHYSICIAN, PHYSICIAN ER Unavailable Unavailable Samuel Pham MD Unavailable Unavailable Samuel Pham MD Unavailable Unavailable Samuel Pham MD Unavailable Unavailable Samuel Pham MD Unavailable Unavailable Samuel Pham MD Unavailable Unavailable Samuel Pham MD Unavailable Unavailable Samuel Pham MD Unavailable Unavailable Samuel Pham MD Unavailable Unavailable Samuel Pham MD Unavailable Unavailable Samuel Pham MD Unavailable Unavailable Samuel Pham MD Unavailable Unavailable Samuel Pham MD Unavailable Unavailable Samuel Pham MD Unavailable Unavailable Samuel Pham MD Unavailable Unavailable Samuel Pham MD Unavailable Unavailable Samuel Pham MD Unavailable Unavailable Samuel Pham MD Unavailable Unavailable Samuel Pham MD Unavailable Unavailable Samuel Pham MD Unavailable Unavailable Samuel Pham MD Unavailable Unavailable Samuel Pham MD Unavailable Unavailable Samuel Pham MD Unavailable Unavailable De Samuel Maria MD Unavailable Unavailable De CrowSamuel carney MD Unavailable Unavailable De CrowSameul carney MD Unavailable Unavailable De CrowSamuel MD Unavailable Unavailable De CrowSamuel MD Unavailable Unavailable De CrowSamuel MD Unavailable Unavailable De Samuel Maria MD Unavailable Unavailable De CrowSamuel MD Unavailable Unavailable De CrowSamuel MD Unavailable Unavailable De CrowSamuel MD Unavailable Unavailable De CrowSamuel MD Unavailable Unavailable De CrowSamuel MD Unavailable Unavailable De CrowSamuel MD Unavailable Unavailable De CrowSamuel MD Unavailable Unavailable De CrowSamuel MD Unavailable Unavailable De CrowSamuel MD Unavailable Unavailable De CrowSamuel MD Unavailable Unavailable De Samuel Maria MD Unavailable Unavailable De CrowSamuel MD Unavailable Unavailable De CrowSamuel MD Unavailable Unavailable De CrowSamuel MD Unavailable Unavailable De CrowSamuel MD Unavailable Unavailable De CrowSamuel carney MD Unavailable Unavailable De CrowSamuel carney MD Unavailable Unavailable De Samuel Maria MD Unavailable Unavailable De CrowSamuel MD Unavailable Unavailable De CrowSamuel MD Unavailable Unavailable De CrowSamuel MD Unavailable Unavailable De Samuel Maria MD Unavailable Unavailable De Samuel Maria MD Unavailable Unavailable De Samuel Maria MD Unavailable Unavailable De CrowSamuel carney MD Unavailable Unavailable De CrowSamuel MD Unavailable Unavailable De CrowSamuel MD Unavailable Unavailable De Samuel Maria MD Unavailable Unavailable De Samuel Maria MD Unavailable Unavailable De Samuel Maria MD Unavailable Unavailable De CrowSamuel MD Unavailable Unavailable De CrowSamuel MD Unavailable Unavailable De CrowSamuel MD Unavailable Unavailable De Samuel Maria MD Unavailable Unavailable De Samuel Maria MD Unavailable Unavailable De CrowSamuel MD Unavailable Unavailable De CrowSamuel MD Unavailable Unavailable De CrowSamuel MD Unavailable Unavailable De Crow, Samuel Adrian MD Unavailable Unavailable Samuel Pham MD Unavailable Unavailable Samuel Pham MD Unavailable Unavailable Samuel Pham MD Unavailable Unavailable Samuel Pham MD Unavailable Unavailable Samuel Pham MD Unavailable Unavailable Samuel Pham MD Unavailable Unavailable Samuel Pham MD Unavailable Unavailable Samuel Pham MD Unavailable Unavailable Samuel Pham MD Unavailable Unavailable Samuel Pham MD Unavailable Unavailable Samuel Pham MD Unavailable Unavailable Samuel Pham MD Unavailable Unavailable Bradshaw, Angelica SHAREPOINT ENGINEER Unavailable Unavailable Bradshaw, Angelica SHAREPOINT ENGINEER Unavailable Unavailable Bradshaw, Angelica SHAREPOINT ENGINEER Unavailable Unavailable Bradshaw, Angelica SHAREPOINT ENGINEER Unavailable Unavailable Bradshaw, Angelica SHAREPOINT ENGINEER Unavailable Unavailable Bradshaw, Angelica SHAREPOINT ENGINEER Unavailable Unavailable Bradshaw, Angelica SHAREPOINT ENGINEER Unavailable Unavailable Bradshaw, Angelica SHAREPOINT ENGINEER Unavailable Unavailable Bradshaw, Angelica SHAREPOINT ENGINEER Unavailable Unavailable Bradshaw, Angelica SHAREPOINT ENGINEER Unavailable Unavailable Bradshaw, Angelica SHAREPOINT ENGINEER Unavailable Unavailable Yina NORIEGA MD Unavailable Unavailable Yina NORIEGA MD Unavailable Unavailable Yina NORIEGA MD Unavailable Unavailable Yina NORIEGA MD Unavailable Unavailable Yina NORIEGA MD Unavailable Unavailable Yina NORIEGA MD Unavailable Unavailable Yina NORIEGA MD Unavailable Unavailable Yina NORIEGA MD Unavailable Unavailable Yina NORIEGA MD Unavailable Unavailable Yina NORIEGA MD Unavailable Unavailable Yina NORIEGA MD Unavailable Unavailable Yina NORIEGA MD Unavailable Unavailable Yina NORIEGA MD Unavailable Unavailable Yina NORIEGA MD Unavailable Unavailable Yina NORIEGA MD Unavailable Unavailable Yina NORIEGA MD Unavailable Unavailable Aden LEROY MD Unavailable Unavailable Samuel Pham MD Unavailable Unavailable Samuel Pham MD Unavailable Unavailable Samuel Pham MD Unavailable Unavailable Samuel Pham MD Unavailable Unavailable Samuel Pham MD Unavailable Unavailable Samuel Pham MD Unavailable Unavailable Samuel Pham MD Unavailable Unavailable Samuel Pham MD Unavailable Unavailable Samuel Pham MD Unavailable Unavailable Samuel Pham MD Unavailable Unavailable De Samuel Maria MD Unavailable Unavailable De CrowSamuel MD Unavailable Unavailable De CrowSamuel MD Unavailable Unavailable De CrowSamuel MD Unavailable Unavailable De CrowSamuel MD Unavailable Unavailable De CrowSamuel MD Unavailable Unavailable De CrowSamuel MD Unavailable Unavailable De CrowSamuel MD Unavailable Unavailable De CrowSamuel MD Unavailable Unavailable De CrowSamuel MD Unavailable Unavailable De CrowSamuel MD Unavailable Unavailable De CrowSamuel MD Unavailable Unavailable De CrowSamuel MD Unavailable Unavailable De CrowSamuel MD Unavailable Unavailable De Crow, Samuel Campbell MD Unavailable Unavailable De CrowSamuel MD Unavailable Unavailable De CrowSamuel MD Unavailable Unavailable De CrowSamuel MD Unavailable Unavailable De CrowSamuel MD Unavailable Unavailable De CrowSamuel MD Unavailable Unavailable De CrowSamuel MD Unavailable Unavailable De CrowSamuel MD Unavailable Unavailable De CrowSamuel MD Unavailable Unavailable De CrowSamuel MD Unavailable Unavailable De CrowSamuel MD Unavailable Unavailable De CrowSamuel MD Unavailable Unavailable De CrowSamuel MD Unavailable Unavailable De CrowSamuel MD Unavailable Unavailable De CrowSamuel MD Unavailable Unavailable De Samuel Maria MD Unavailable Unavailable De CrowSamuel MD Unavailable Unavailable De CrowSamuel MD Unavailable Unavailable De CrowSamuel MD Unavailable Unavailable De CrowSamuel MD Unavailable Unavailable De CrowSamuel MD Unavailable Unavailable De CrowSamuel carney MD Unavailable Unavailable De Samuel Maria MD Unavailable Unavailable De CrowSamuel MD Unavailable Unavailable De CrowSamuel MD Unavailable Unavailable De CrowSamuel MD Unavailable Unavailable De Samuel Maria MD Unavailable Unavailable De Samuel Maria MD Unavailable Unavailable De Samuel Maria MD Unavailable Unavailable De CrowSamuel MD Unavailable Unavailable De CrowSamuel MD Unavailable Unavailable Samuel Pham MD Unavailable Unavailable De CrowSamuel MD Unavailable Unavailable De CrowSamuel carney MD Unavailable Unavailable De CrowSamuel MD Unavailable Unavailable De Crow, Samuel Campbell MD Unavailable Unavailable De Crow, Samuel Campbell MD Unavailable Unavailable De CrowSamuel MD Unavailable Unavailable De CrowSamuel carney MD Unavailable Unavailable De Crow, Samuel Campbell MD Unavailable Unavailable De Crow, Samuel Campbell MD Unavailable Unavailable De Crow, Samuel Campbell MD Unavailable Unavailable De Crow, Samuel Campbell MD Unavailable Unavailable De Crow, Samuel Campbell MD Unavailable Unavailable De Crow, Samuel Campbell MD Unavailable Unavailable De Crow, Samuel Campbell MD Unavailable Unavailable De Crow, Samuel Campbell MD Unavailable Unavailable De Crow, Samuel Campbell MD Unavailable Unavailable De Crow, Samuel Campbell MD Unavailable Unavailable Pham, Samuel Campbell MD Unavailable Unavailable Pham, Samuel Campbell MD Unavailable Unavailable De Crow, Samuel Campbell MD Unavailable Unavailable De Crow, Samuel Campbell MD Unavailable Unavailable De Crow, Samuel Campbell MD Unavailable Unavailable De Samuel Maria MD Unavailable Unavailable Samuel Pham MD Unavailable Unavailable LESTER, SCOTT LAKHANI Unavailable Unavailable LESTER, SCOTT LAKHANI Unavailable Unavailable ZAKARISAMY, SCOTT LAKHANI Unavailable Unavailable ZAKARISAMY, SCOTT LAKHANI Unavailable Unavailable LESTER, SCOTT LAKHANI Unavailable Unavailable LESTER, SCOTT LAKHANI Unavailable Unavailable ZAKARISAMY, SCOTT LAKHANI Unavailable Unavailable KIERAKARPREETI, SCOTT LAKHANI Unavailable Unavailable ZAKARIYKURT, SCOTT LAKHANI Unavailable Unavailable ZAKARIYKURT, SCOTT LAKHANI Unavailable Unavailable ZAKARIYKURT, SCOTT LAKHANI Unavailable Unavailable ZAKARPREETI, SCOTT LAKHANI Unavailable Unavailable KIERAKARPREETI, SCOTT LAKHANI Unavailable Unavailable ZAKARPREETI, SCOTT LAKHANI Unavailable Unavailable ZAKARISAMY, SCOTT LAKHANI Unavailable Unavailable ZAKARPREETI, SCOTT LAKHANI Unavailable Unavailable LESTER, SCOTT LAKHANI Unavailable Unavailable LESTER, SCOTT LAKHANI Unavailable Unavailable LESTER, SCOTT LAKHANI Unavailable Unavailable ZAKARISAMY, SCOTT LAKHANI Unavailable Unavailable ZAKARIYKURT, SCOTT LAKHANI Unavailable Unavailable ZAKARIYYA, HASMATHEUS MD Unavailable Unavailable ZAKARIYYA, HASMATHEUS LAKHANI Unavailable Unavailable ZAKARIYYA, SCOTT LAKHANI Unavailable Unavailable ZAKARIYYA, SCOTT MD Unavailable Unavailable ZAKARIYYA, HASMATHEUS MD Unavailable Unavailable ZAKARIYYA, HASMATHEUS MD Unavailable Unavailable ZAKARIYYA, HASMATHEUS MD Unavailable Unavailable ZAKARIYYA, HASMATHEUS LAKHANI Unavailable Unavailable ZAKARIYYA, HASMATHEUS LAKHANI Unavailable Unavailable ZAKARIYYA, HASMATHEUS LAKHANI Unavailable Unavailable ZAKARIYYA, HASMATHEUS MD Unavailable Unavailable ZAKARIYYA, HASMATHEUS MD Unavailable Unavailable ZAKARIYYA, HASMATHEUS MD Unavailable Unavailable ZAKARIYYA, SCOTT LAKHANI Unavailable Unavailable ZAKARIYYA, SCOTT LAKHANI Unavailable Unavailable ZAKARIYYA, SCOTT LAKHANI Unavailable Unavailable ZAKARIYYA, SCOTT LAKHANI Unavailable Unavailable ZAKARIYYA, SCOTT LAKHANI Unavailable Unavailable ZAKARIYYA, SCOTT LAKHANI Unavailable Unavailable ZAKARIYYA, SCOTT LAKHANI Unavailable Unavailable ZAKARIYYA, SCOTT LAKHANI Unavailable Unavailable ZAKARIYYA, SCOTT LAKHANI Unavailable Unavailable ZAKARIYYA, SCOTT LAKHANI Unavailable Unavailable ZAKARIYYA, SCOTT LAKHANI Unavailable Unavailable ZAKARIYYA, SCOTT LAKHANI Unavailable Unavailable ZAKARIYYA, SCOTT LAKHANI Unavailable Unavailable ZAKARIYYA, SCOTT LAKHANI Unavailable Unavailable CARLEEN LAKHANI, SONYA Unavailable [facility]available [facility] Unavailable Unavailable Kiki HALL MD Unavailable Unavailable Kiki HALL MD Unavailable Unavailable Kiki HALL MD Unavailable Unavailable Kiki HALL MD Unavailable Unavailable Kiki HALL MD Unavailable Unavailable Kiki HALL MD Unavailable Unavailable Kiki HALL MD Unavailable Unavailable Kiki HALL MD Unavailable Unavailable Kiki HALL MD Unavailable Unavailable Kiki HALL MD Unavailable Unavailable Kkii HALL MD Unavailable Unavailable Kiki HALL MD Unavailable Unavailable Kiki HALL MD Unavailable Unavailable Kiki HALL MD Unavailable Unavailable Kiki HALL MD Unavailable Unavailable Kiki HALL MD Unavailable Unavailable Kiki HALL MD Unavailable Unavailable Raymundo Frazier MD Unavailable Unavailable Block, Sumendra MD Unavailable Unavailable Block, Sumendra MD Unavailable Unavailable Block, Sumendra MD Unavailable Unavailable Block, Sumendra MD Unavailable Unavailable Block, Sumendra MD Unavailable Unavailable Block, Sumendra MD Unavailable Unavailable Block, Sumendra MD Unavailable Unavailable Block, Sumendra MD Unavailable Unavailable Block, Sumendra MD Unavailable Unavailable Block, Sumendra MD Unavailable Unavailable Block, Sumendra MD Unavailable Unavailable Block, Sumendra MD Unavailable Unavailable Block, Sumendra MD Unavailable Unavailable Block, Sumendra MD Unavailable Unavailable Block, Sumendra MD Unavailable Unavailable Block, Sumendra MD Unavailable Unavailable Block, Sumendra MD Unavailable Unavailable Block, Sumendra MD Unavailable Unavailable Block, Sumendra MD Unavailable Unavailable Block, Sumendra MD Unavailable Unavailable Block, Sumendra MD Unavailable Unavailable Block, Sumendra MD Unavailable Unavailable Block, Sumendra MD Unavailable Unavailable Block, Sumendra MD Unavailable Unavailable Block, Sumendra MD Unavailable Unavailable Block, Sumendra MD Unavailable Unavailable Block, Sumendra MD Unavailable Unavailable Block, Sumendra MD Unavailable Unavailable Block, Sumendra MD Unavailable Unavailable Block, Sumendra MD Unavailable Unavailable Block, Sumendra MD Unavailable Unavailable Block, Sumendra MD Unavailable Unavailable JOSE GILLIS MD Unavailable Unavailable JOSE GILLIS MD Unavailable Unavailable JOSE GILLIS MD Unavailable Unavailable JOSE GILLIS MD Unavailable Unavailable JOSE GILLIS MD Unavailable Unavailable JOSE GILLIS MD Unavailable Unavailable JOSE GILLIS MD Unavailable Unavailable JOSE GILLIS MD Unavailable Unavailable JOSE GILLIS MD Unavailable Unavailable JOSE GILLIS MD Unavailable Unavailable JOSE GILLIS MD Unavailable Unavailable JOSE GILLIS MD Unavailable Unavailable JOSE GILLIS MD Unavailable Unavailable JOSE GILLIS MD Unavailable Unavailable JOSE GILLIS MD Unavailable Unavailable JOSE GILLIS MD Unavailable Unavailable JOSE GILLIS MD Unavailable Unavailable JOSE GILLIS MD Unavailable Unavailable JOSE GILLIS MD Unavailable Unavailable JOSE GILLIS MD Unavailable Unavailable JOSE GILLIS MD Unavailable Unavailable JOSE GILILS MD Unavailable Unavailable JOSE GILLIS MD Unavailable Unavailable JOSE GILLIS MD Unavailable Unavailable JOSE GILLIS MD Unavailable Unavailable JOSE GILLIS MD Unavailable Unavailable JOSE GILLIS MD Unavailable Unavailable JOSE GILLIS MD Unavailable Unavailable JOSE GILLIS MD Unavailable Unavailable JOSE GILLIS MD Unavailable Unavailable JOSE GILLIS MD Unavailable Unavailable JOSE GILLIS MD Unavailable Unavailable JOSE GILLIS MD Unavailable Unavailable JOSE GILLIS MD Unavailable Unavailable JOSE GILLIS MD Unavailable Unavailable JOSE GILLIS MD Unavailable Unavailable JOSE GILLIS MD Unavailable Unavailable JOSE GILLIS MD Unavailable Unavailable JOSE GILLIS MD Unavailable Unavailable JOSE GILLIS MD Unavailable Unavailable JOSE GILLIS MD Unavailable Unavailable JOSE GILLIS MD Unavailable Unavailable JOSE GILLIS MD Unavailable Unavailable JOSE GILLIS MD Unavailable Unavailable JOSE GILLIS MD Unavailable Unavailable JOSE GILLIS MD Unavailable Unavailable JOSE GILLIS MD Unavailable Unavailable JOSE GILLIS MD Unavailable Unavailable JOSE GILLIS MD Unavailable Unavailable JOSE GILLIS MD Unavailable Unavailable JOSE GILLIS MD Unavailable Unavailable JOSE GILLIS MD Unavailable Unavailable JOSE GILLIS MD Unavailable Unavailable JOSE GILLIS MD Unavailable Unavailable JOSE GILLIS MD Unavailable Unavailable JOSE GILLIS MD Unavailable Unavailable JOSE GILLIS MD Unavailable Unavailable JOSE GILLIS MD Unavailable Unavailable JOSE GILLIS MD Unavailable Unavailable Varki, M Mich Unavailable Varki, M Mich Unavailable Varki, M Mich Unavailable Varki, M Mich Unavailable Varki, M Mich Unavailable Varki, M Mich Unavailable Varki, M Mich Unavailable Varki, M Mich Unavailable Varki, M Mich Unavailable Varki, M Mich Unavailable Varki, M Mich Unavailable Varki, M Mich Unavailable Varki, M Mich Unavailable Varradha, M Mich Unavailable Moreno, Adria Leon MD Unavailable Unavailable Moreno, Adria Leon MD Unavailable Unavailable Moreno, Adria Leon MD Unavailable Unavailable Moreno, Adria Leon MD Unavailable Unavailable Moreno, Adria Leon MD Unavailable Unavailable Moreno, Adria Leon MD Unavailable Unavailable Moreno, Adria Leon MD Unavailable Unavailable Moreno, Adria Leon MD Unavailable Unavailable Moreno, Adria Leon MD Unavailable Unavailable Moreno, Adria Leon MD Unavailable Unavailable Moreno, Adria Leon MD Unavailable Unavailable Moreno, Adria Leon MD Unavailable Unavailable Moreno, Adria Leon MD Unavailable Unavailable Moreno, Adria Leon MD Unavailable Unavailable Moreno, Adria Leon MD Unavailable Unavailable Moreno, Adria Leon MD Unavailable Unavailable RAY, Yina MARIE MD Unavailable Unavailable RAY, Yina MARIE MD Unavailable Unavailable RAY, Yina MARIE MD Unavailable Unavailable RAY, Yina MARIE MD Unavailable Unavailable RAY, Yina MARIE MD Unavailable Unavailable RAY, Yina MARIE MD Unavailable Unavailable RAY, Yina MARIE MD Unavailable Unavailable RAY, Yina MARIE MD Unavailable Unavailable RAY, Yina MARIE MD Unavailable Unavailable RAY, Yina MARIE MD Unavailable Unavailable RAY, Yina MARIE MD Unavailable Unavailable RAY, Yina MARIE MD Unavailable Unavailable RAY, Yina MARIE MD Unavailable Unavailable RAY, Yina MARIE MD Unavailable Unavailable RAY, Yina MARIE MD Unavailable Unavailable RAY, Yina MARIE MD Unavailable Unavailable RAY, Yina MARIE MD Unavailable Unavailable RAY, Yina MARIE MD Unavailable Unavailable RAY, Yina MARIE MD Unavailable Unavailable RAY, Yina MARIE MD Unavailable Unavailable RAY, Yina MARIE MD Unavailable Unavailable RAYYina MD Unavailable Unavailable RAYYina MD Unavailable Unavailable RAY, Yina MARIE MD Unavailable Unavailable RAY, Yina MARIE MD Unavailable Unavailable RAY, Yina MARIE MD Unavailable Unavailable RAY, Yina MARIE MD Unavailable Unavailable RAY, Yina MARIE MD Unavailable Unavailable RAY, Yina MARIE MD Unavailable Unavailable RAY, Yina MARIE MD Unavailable Unavailable RAY, Yina MARIE MD Unavailable Unavailable RAY, Yina MARIE MD Unavailable Unavailable RAY, Yina MARIE MD Unavailable Unavailable RAY, Yina MARIE MD Unavailable Unavailable RAY, Yina MARIE MD Unavailable Unavailable RAY, Yina MARIE MD Unavailable Unavailable RAY, Yina MARIE MD Unavailable Unavailable RAY, Yina MARIE MD Unavailable Unavailable RAY, Yina MARIE MD Unavailable Unavailable RAY, Yina MARIE MD Unavailable Unavailable RAY, Yina MARIE MD Unavailable Unavailable RAY, Yina MARIE MD Unavailable Unavailable RAY, Yina MARIE MD Unavailable Unavailable RAYYinaIAN MD Unavailable Unavailable Yina SIMMONS MD Unavailable Unavailable Yina SIMMONS MD Unavailable Unavailable Swatsworth, A Mikey PA Unavailable Unavailable Swatsworth, A Mikey PA Unavailable Unavailable Swatsworth, A Mikey PA Unavailable Unavailable Swatsworth, A Mikey PA Unavailable Unavailable Swatsworth, A Mikey PA Unavailable Unavailable Swatsworth, A Mikey PA Unavailable Unavailable Swatsworth, A Mikey PA Unavailable Unavailable Swatsworth, A Mikey PA Unavailable Unavailable Swatsworth, A Mikey PA Unavailable Unavailable Swatsworth, A Mikey PA Unavailable Unavailable Swatsworth, A Mikey PA Unavailable Unavailable Swatsworth, A Mikey PA Unavailable Unavailable Swatsworth, A Mikey PA Unavailable Unavailable Swatsworth, A Mikey PA Unavailable Unavailable Yina HENNING MD Unavailable Unavailable Yina Escamilla MD Unavailable Unavailable Yina Escamilla MD Unavailable Unavailable Yina Escamilla MD Unavailable Unavailable Yina Escamilla MD Unavailable Unavailable Yina Escamilla MD Unavailable Unavailable Yina Escamilla MD Unavailable Unavailable Yina Escamilla MD Unavailable Unavailable Yina Escamilla MD Unavailable Unavailable Yina Escamilla MD Unavailable Unavailable Yina Escamilla MD Unavailable Unavailable Yina Escamilla MD Unavailable Unavailable Yina Escamilla MD Unavailable Unavailable Yina Escamilla MD Unavailable Unavailable Yina Escamilla MD Unavailable Unavailable Yina Escamilla MD Unavailable Unavailable Yina Escamilla MD Unavailable Unavailable Yina Escamilla MD Unavailable Unavailable Yina Escamilla MD Unavailable Unavailable Yina Escamilla MD Unavailable Unavailable Yina Escamilla MD Unavailable Unavailable Yina Escamilla MD Unavailable Unavailable Yina Escamilla MD Unavailable Unavailable Yina Escamilla MD Unavailable Unavailable Yina Escamilla MD Unavailable Unavailable Yina Escamilla MD Unavailable Unavailable Yina Escamilla MD Unavailable Unavailable Yina Escamilla MD Unavailable Unavailable Yina Escamilla MD Unavailable Unavailable Yina Escamilla MD Unavailable Unavailable Yina Escamilla MD Unavailable Unavailable Yina Escamilla MD Unavailable Unavailable Yina Escamilla MD Unavailable Unavailable Yina Escamilla MD Unavailable Unavailable Yina Escamilla MD Unavailable Unavailable Yina Escamilla MD Unavailable Unavailable Yina Escamilla MD Unavailable Unavailable Yina Escamilla MD Unavailable Unavailable Yina Escamilla MD Unavailable Unavailable Yina Escamilla MD Unavailable Unavailable Yina Escamilla MD Unavailable Unavailable Yina Escamilla MD Unavailable Unavailable Yina Escamilla MD Unavailable Unavailable Yina Escamilla MD Unavailable Unavailable Yina Escamilla MD Unavailable Unavailable Yina Escamilla MD Unavailable Unavailable Yina Escamilla MD Unavailable Unavailable Yina Escamilla MD Unavailable Unavailable Yina Escamilla MD Unavailable Unavailable Yina Escamilla MD Unavailable Unavailable Yina Escamilla MD Unavailable Unavailable Yina Escamilla MD Unavailable Unavailable Yina Escamilla MD Unavailable Unavailable Yina Escamilla MD Unavailable Unavailable Yina Escamilla MD Unavailable Unavailable Yina Escamilla MD Unavailable Unavailable Yina Escamilla MD Unavailable Unavailable Yina Escamilla MD Unavailable Unavailable Yina Escamilla MD Unavailable Unavailable Yina Escamilla MD Unavailable Unavailable Yina Escamilla MD Unavailable Unavailable Yina Escamilla MD Unavailable Unavailable Yina Escamilla MD Unavailable Unavailable Yina Escamilla MD Unavailable Unavailable Yina Escamilla MD Unavailable Unavailable Yina Escamilla MD Unavailable Unavailable Yina Escamilla MD Unavailable Unavailable Yina Escamilla MD Unavailable Unavailable Yina Escamilla MD Unavailable Unavailable Yina Escamilla MD Unavailable Unavailable Yina Escamilla MD Unavailable Unavailable Ebenezer, J Tawanda PA-C Unavailable Unavailable Ebenezer, J Tawanda PA-C Unavailable Unavailable Ebenezer, J Tawanda PA-C Unavailable Unavailable Ebenezer, J Tawanda PA-C Unavailable Unavailable Ebenezer, J Tawanda PA-C Unavailable Unavailable Ebenezer, J Tawanda PA-C Unavailable Unavailable Ebenezer, J Tawanda PA-C Unavailable Unavailable Ebenezer, J Tawanda PA-C Unavailable Unavailable Ebenezer, J Tawanda PA-C Unavailable Unavailable Ebenezer, J Tawanda PA-C Unavailable Unavailable Ebeneezr, J Tawanda PA-C Unavailable Unavailable Reese Wyatt MD Unavailable Unavailable Reese Wyatt MD Unavailable Unavailable Reese Wyatt MD Unavailable Unavailable Reese Wyatt MD Unavailable Unavailable Reese Wyatt MD Unavailable Unavailable Reese Wyatt MD Unavailable Unavailable Reese Wyatt MD Unavailable Unavailable Reese Wyatt MD Unavailable Unavailable Reese Wyatt MD Unavailable Unavailable Reese Wyatt MD Unavailable Unavailable Reese Wyatt MD Unavailable Unavailable Reese Wyatt MD Unavailable Unavailable Reese Wyatt MD Unavailable Unavailable Reese Wyatt MD Unavailable Unavailable Reese Wyatt MD Unavailable Unavailable Reese Wyatt MD Unavailable Unavailable Skipton, E Cait MD Unavailable Unavailable Skipton, E Cait MD Unavailable Unavailable Skipton, E Cait MD Unavailable Unavailable Skipton, E Cait MD Unavailable Unavailable Skipton, E Cait MD Unavailable Unavailable Skipton, E Cait MD Unavailable Unavailable Skipton, E Cait MD Unavailable Unavailable Skipton, E Cait MD Unavailable Unavailable Skipton, E Cait MD Unavailable Unavailable Skipton, E Cait MD Unavailable Unavailable Skipton, E Cait MD Unavailable Unavailable Skipton, E Cait MD Unavailable Unavailable Skipton, E Cait MD Unavailable Unavailable Skipton, E Cati MD Unavailable Unavailable Skipton, E Cait MD Unavailable Unavailable Skipton, E Cait MD Unavailable Unavailable Skipton, E Cait MD Unavailable Unavailable Skipton, E Cait MD Unavailable Unavailable Skipton, E Cait MD Unavailable Unavailable Skipton, E Cait MD Unavailable Unavailable Skipton, E Cait MD Unavailable Unavailable Skipton, E Cait MD Unavailable Unavailable Skipton, E Cait MD Unavailable Unavailable Skipton, E Cait MD Unavailable Unavailable Skipton, E Cait MD Unavailable Unavailable Skipton, E Cait MD Unavailable Unavailable Skipton, E Cait MD Unavailable Unavailable Skipton, E Cait MD Unavailable Unavailable Skipton, E Cait MD Unavailable Unavailable Skipton, E Cait MD Unavailable Unavailable Skipton, E Cait MD Unavailable Unavailable Skipton, E Cait MD Unavailable Unavailable Skipton, E Cait MD Unavailable Unavailable Skipton, E Cait MD Unavailable Unavailable Skipton, E Cait MD Unavailable Unavailable STANDISH, E TANVI Unavailable Unavailable Pinkhasov, M Michael MD Unavailable Unavailable Pinkhasov M Michael MD Unavailable Unavailable Pinkhasov M Michael LAKHANI Unavailable Unavailable Pinkhasov M Michael LAKHANI Unavailable Unavailable Pinkhasov M Michael LAKHANI Unavailable Unavailable Pinkhasov M Michael LAKHANI Unavailable Unavailable Pinkhasov, M Michael MD Unavailable Unavailable Pinkhasov M Michael MD Unavailable Unavailable Pinkhasov, M Michael MD Unavailable Unavailable Pinkhasov, M Michael MD Unavailable Unavailable Pinkhasov, M Michael LAKHANI Unavailable Unavailable Pinkhasov, M Michael MD Unavailable Unavailable Pinkhasov, M Michael MD Unavailable Unavailable Pinkhasov, M Michael MD Unavailable Unavailable Pinkhasov, M Michael MD Unavailable Unavailable Pinkhasov, M Michael MD Unavailable Unavailable FLYNN-GINGER, ARLETTE DO Unavailable Unavailable FLYNN-GINGER, ARLETTE DO Unavailable Unavailable FLYNN-GINGER, ARLETTE DO Unavailable Unavailable FLYNN-GINGER, ARLETTE DO Unavailable Unavailable FLYNN-GINGER, ARLETTE DO Unavailable Unavailable FLYNN-GINGER, ARLETTE DO Unavailable Unavailable FLYNN-GINGER, ARLETTE DO Unavailable Unavailable FLYNN-GINGER, ARLETTE DO Unavailable Unavailable FLYNN-GINGER, ARLETTE DO Unavailable Unavailable FLYNN-GINGER, ARLETTE DO Unavailable Unavailable FLYNN-GINGER, ARLETTE DO Unavailable Unavailable FLYNN-GINGER, ARLETTE DO Unavailable Unavailable FLYNN-GINGER, ARLETTE DO Unavailable Unavailable FLYNN-GINGER, ARLETTE DO Unavailable Unavailable FLYNN-GINGER, ARLETTE DO Unavailable Unavailable FLYNN-GINGER, ARLETTE DO Unavailable Unavailable FLYNN-GINGER, ARLETTE DO Unavailable Unavailable FLYNN-GINGER, ARLETTE DO Unavailable Unavailable FLYNN-GINGER, ARLETTE DO Unavailable Unavailable FLYNN-GINGER, ARLETTE DO Unavailable Unavailable FLYNN-GINGER, ARLETTE DO Unavailable Unavailable FLYNN-GINGER, ARLETTE DO Unavailable Unavailable FLYNN-GINGER, ARLETTE DO Unavailable Unavailable FLYNN-GINGER, ARLETTE DO Unavailable Unavailable FLYNN-GINGER, ARLETTE DO Unavailable Unavailable FLYNN-GINGER, ARLETTE DO Unavailable Unavailable FLYNN-GINGER, ARLETTE DO Unavailable Unavailable FLYNN-GINGER, ARLETTE DO Unavailable Unavailable FLYNN-GINGER, ARLETTE DO Unavailable Unavailable FLYNN-GINGER, ARLETTE DO Unavailable Unavailable FLYNN-GINGER, ARLETTE DO Unavailable Unavailable FLYNN-GINGER, ARLETTE DO Unavailable Unavailable FLYNN-GINGER, ARLETTE DO Unavailable Unavailable FLYNN-GINGER, ARLETTE DO Unavailable Unavailable FLYNN-GINGER, ARLETTE DO Unavailable Unavailable FLYNN-GINGER, ARLETTE DO Unavailable Unavailable FLYNN-GINGER, ARLETTE DO Unavailable Unavailable FLYNN-GINGER, ARLETTE DO Unavailable Unavailable FLYNN-GINGER, ARLETTE DO Unavailable Unavailable FLYNN-GINGER, ARLETTE DO Unavailable Unavailable FLYNN-GINGER, ARLETTE DO Unavailable Unavailable FLYNN-GINGER, ARLETTE DO Unavailable Unavailable FLYNN-GINGER, ARLETTE DO Unavailable Unavailable FLYNN-GINGER, ARLETTE DO Unavailable Unavailable FLYNN-GINGER, ARLETTE DO Unavailable Unavailable FLYNN-GINGER, ARLETTE DO Unavailable Unavailable FLYNN-GINGER, ARLETTE DO Unavailable Unavailable FLYNN-GINGER, ARLETTE DO Unavailable Unavailable FLYNN-GINGER, ARLETTE DO Unavailable Unavailable FLYNN-GINGER, ARLETTE DO Unavailable Unavailable FLYNN-GINGER, ARLETTE DO Unavailable Unavailable FLYNN-GINGER, ARLETTE DO Unavailable Unavailable FLYNN-GINGER, ARLETTE DO Unavailable Unavailable FLYNN-GINGER, ARLETTE DO Unavailable Unavailable FLYNN-GINGER, ARLETTE DO Unavailable Unavailable FLYNN-GINGER, ARLETTE DO Unavailable Unavailable FLYNN-GINGER, ARLETTE DO Unavailable Unavailable FLNYN-GINGER, ARLETTE DO Unavailable Unavailable FLYNN-GINGER, ARLETTE DO Unavailable Unavailable FLYNN-GINGER, ARLETTE DO Unavailable Unavailable FLYNN-GINGER, ARLETTE DO Unavailable Unavailable FLYNN-GINGER, ARLETTE DO Unavailable Unavailable FLYNN-GINGER, ARLETTE DO Unavailable Unavailable FLYNN-GINGER, ARLETTE DO Unavailable Unavailable FLYNN-GINGER, ARLETTE DO Unavailable Unavailable FLYNN-GINGER, ARLETTE DO Unavailable Unavailable FLYNN-GINGER, ARLETTE DO Unavailable Unavailable FLYNN-GINGER, ARLETTE DO Unavailable Unavailable FLYNN-GINGER, ARLETTE DO Unavailable Unavailable FLYNN-GINGER, ARLETTE DO Unavailable Unavailable FLYNN-GINGER, ARLETTE DO Unavailable Unavailable FLYNN-GINGER, ARLETTE DO Unavailable Unavailable FLYNN-GINGER, ARLETTE DO Unavailable Unavailable FLYNN-GINGER, ARLETTE DO Unavailable Unavailable FLYNN-GINGER, ARLETTE DO Unavailable Unavailable FLYNN-GINGER, ARLETTE DO Unavailable Unavailable FLYNN-GINGER, ARLETTE DO Unavailable Unavailable FLYNN-GINGER, ARLETTE DO Unavailable Unavailable FLYNN-GINGER, ARLETTE DO Unavailable Unavailable FLYNN-GINGER, ARLETTE DO Unavailable Unavailable FLYNN-GINGER, ARLETTE DO Unavailable Unavailable XIAO SAWYER MD Unavailable Unavailable XIAO SAWYER MD Unavailable Unavailable XIAO SAWYER MD Unavailable Unavailable XIAO SAWYER MD Unavailable Unavailable Gwilt, T Michelle Unavailable Unavailable Gwilt, T Michelle Unavailable Unavailable Gwilt, T Michelle Unavailable Unavailable Gwilt, T Michelle Unavailable Unavailable Gwilt, T Michelle Unavailable Unavailable Gwilt, T Michelle Unavailable Unavailable Gwilt, T Michelle Unavailable Unavailable Gwilt, T Michelle Unavailable Unavailable Gwilt, T Michelle Unavailable Unavailable Gwilt, T Michelle Unavailable Unavailable Gwilt, T Michelle Unavailable Unavailable Gwilt, T Michelle Unavailable Unavailable Gwilt, T Michelle Unavailable Unavailable Gwilt, T Michelle Unavailable Unavailable Gwilt, T Michelle Unavailable Unavailable Gwilt, T Michelle Unavailable Unavailable Gwilt, T Michelle Unavailable Unavailable Gwilt, T Michelle Unavailable Unavailable Yina BENITEZ Unavailable Unavailable Melissa BUCKNER PA-C Unavailable Unavailable Melissa BUCKNER PA-C Unavailable Unavailable Yina CHAIDEZ MD Unavailable Unavailable Yina CHAIDEZ MD Unavailable Unavailable Yina CHAIDEZ MD Unavailable Unavailable Yina CHAIDEZ MD Unavailable Unavailable Yina CHADIEZ MD Unavailable Unavailable Yina CHAIDEZ MD Unavailable Unavailable Yina CHAIDEZ MD Unavailable Unavailable Yina CHAIDEZ MD Unavailable Unavailable Yina CHAIDEZ MD Unavailable Unavailable Yina CHAIDEZ MD Unavailable Unavailable Yina CHAIDEZ MD Unavailable Unavailable Yina CHAIDEZ MD Unavailable Unavailable Yina CHAIDEZ MD Unavailable Unavailable Yina CHAIDEZ MD Unavailable Unavailable Yina CHAIDEZ MD Unavailable Unavailable Yina CHAIDEZ MD Unavailable Unavailable Yina CHAIDEZ MD Unavailable Unavailable Yina CHAIDEZ MD Unavailable Unavailable Yina CHAIDEZ MD Unavailable Unavailable Yina CHAIDEZ MD Unavailable Unavailable Yina CHAIDEZ MD Unavailable Unavailable Yina CHAIDEZ MD Unavailable Unavailable Yina CHAIDEZ MD Unavailable Unavailable Yina CHAIDEZ MD Unavailable Unavailable Yina CHAIDEZ MD Unavailable Unavailable Yina CHAIDEZ MD Unavailable Unavailable Yina CHAIDEZ MD Unavailable Unavailable Yina CHAIDEZ MD Unavailable Unavailable Yina CHAIDEZ MD Unavailable Unavailable Yina CHAIDEZ MD Unavailable Unavailable Yina CHAIDEZ MD Unavailable Unavailable Yina CHAIDEZ MD Unavailable Unavailable Yina CHAIDEZ MD Unavailable Unavailable Yina CHAIDEZ MD Unavailable Unavailable Yina CHAIDEZ MD Unavailable Unavailable Yina CHAIDEZ MD Unavailable Unavailable Yina CHAIDEZ MD Unavailable Unavailable Yina CHAIDEZ MD Unavailable Unavailable Yina CHAIDEZ MD Unavailable Unavailable Yina CHAIDEZ MD Unavailable Unavailable Yina CHAIDEZ MD Unavailable Unavailable Yina CHAIDEZ MD Unavailable Unavailable Yina CHAIDEZ MD Unavailable Unavailable Yina CHAIDEZ MD Unavailable Unavailable Yina CHAIDEZ MD Unavailable Unavailable Yina CHAIDEZ MD Unavailable Unavailable Yina CHAIDEZ MD Unavailable Unavailable Yina CHAIDEZ MD Unavailable Unavailable Yina CHAIDEZ MD Unavailable Unavailable Yina CHAIDEZ MD Unavailable Unavailable Yina CHAIDEZ MD Unavailable Unavailable Yina CHAIDEZ MD Unavailable Unavailable Yina CHAIDEZ MD Unavailable Unavailable Yina CHAIDEZ MD Unavailable Unavailable Yina CHAIDEZ MD Unavailable Unavailable Yina CHAIDEZ MD Unavailable Unavailable Yina CHAIDEZ MD Unavailable Unavailable Yina CHAIDEZ MD Unavailable Unavailable Yina CHAIDEZ MD Unavailable Unavailable Yina CHAIDEZ MD Unavailable Unavailable Yina CHAIDEZ MD Unavailable Unavailable Yina CHAIDEZ MD Unavailable Unavailable Yina CHAIDEZ MD Unavailable Unavailable Yina CHAIDEZ MD Unavailable Unavailable Yina CHAIDEZ MD Unavailable Unavailable Yina CHAIDEZ MD Unavailable Unavailable Yina CHAIDEZ MD Unavailable Unavailable Yina CHAIDEZ MD Unavailable Unavailable Blanchard, Yarelis Unavailable Unavailable Blanchard, Yarelis Unavailable Unavailable Blanchard, Yarelis Unavailable Unavailable Blanchard, Yarelis Unavailable Unavailable Blanchard, Yarelis Unavailable Unavailable Blanchard, Yarelis Unavailable Unavailable Blanchard, Yarelis Unavailable Unavailable Blanchard, Yarelis Unavailable Unavailable Blanchard, Yarelis Unavailable Unavailable Blanchard, Yarelis Unavailable Unavailable Blanchard, Yarelis Unavailable Unavailable Blanchard, Yarelis Unavailable Unavailable Blanchard, Yarelis Unavailable Unavailable Blanchard, Yarelis Unavailable Unavailable Blanchard, Yarelis Unavailable Unavailable Blanchard, Yarelis Unavailable Unavailable Blanchard, Yarelis Unavailable Unavailable Blanchard, Yarelis Unavailable Unavailable Blanchard, Yarelis Unavailable Unavailable Blanchard, Yarelis Unavailable Unavailable Blanchard, Yarelis Unavailable Unavailable Blanchard, Yarelis Unavailable Unavailable Blanchard, Yarelis Unavailable Unavailable Blanchard, Yarelis Unavailable Unavailable Blanchard, Yarelis Unavailable Unavailable Blanchard, Yarelis Unavailable Unavailable Blanchard, Yarelis Unavailable Unavailable Blanchard, Yarelis Unavailable Unavailable Blanchard, Yarelis Unavailable Unavailable Blanchard, Yarelis Unavailable Unavailable Blanchard, Yarelis Unavailable Unavailable Blanchard, Yarelis Unavailable Unavailable Blanchard, Yarelis Unavailable Unavailable Alessandro SANDOVAL Unavailable Unavailable De Crow, Samuel Campbell MD Unavailable Unavailable De Crow, Samuel Campbell MD Unavailable Unavailable De Crow, Samuel Campbell MD Unavailable Unavailable De Crow, Samuel Campbell MD Unavailable Unavailable De Crow, Samuel Campbell MD Unavailable Unavailable De Crow, Samuel Campbell MD Unavailable Unavailable De Crow, Samuel Campbell MD Unavailable Unavailable De Crow, Samuel Campbell MD Unavailable Unavailable De Crow, Samuel Campbell MD Unavailable Unavailable De Crow, Samuel Campbell MD Unavailable Unavailable De Crow, Samuel Campbell MD Unavailable Unavailable De Crow, Samuel Campbell MD Unavailable Unavailable De Crow, Samuel Campbell MD Unavailable Unavailable De Crow, Samuel Campbell MD Unavailable Unavailable De Crow, Samuel Campbell MD Unavailable Unavailable De Crow, Samuel Campbell MD Unavailable Unavailable De Crow, Samuel Campbell MD Unavailable Unavailable De Crow, Samuel Campbell MD Unavailable Unavailable De Crow, Samuel Campbell MD Unavailable Unavailable De Crow, Samuel Campbell MD Unavailable Unavailable De Crow, Samuel Campbell MD Unavailable Unavailable De Crow, Samuel Campbell MD Unavailable Unavailable De Crow, Samuel Campbell MD Unavailable Unavailable De Crow, Samuel Campbell MD Unavailable Unavailable De Crow, Samuel Campbell MD Unavailable Unavailable De Crow, Samuel Campbell MD Unavailable Unavailable De Crow, Samuel Campbell MD Unavailable Unavailable De Crow, Samuel Campbell MD Unavailable Unavailable De Crow, Samuel Campbell MD Unavailable Unavailable De Crow, Samuel Campbell MD Unavailable Unavailable De Crow, Samuel Campbell MD Unavailable Unavailable De Crow, Samuel Campbell MD Unavailable Unavailable De Crow, Samuel Campbell MD Unavailable Unavailable De Crow, Samuel Campbell MD Unavailable Unavailable De Crow, Samuel Campbell MD Unavailable Unavailable De Crow, Samuel Campbell MD Unavailable Unavailable De Samuel Maria MD Unavailable Unavailable De CrowSamuel carney MD Unavailable Unavailable De CorwSamuel carney MD Unavailable Unavailable De CrowSamuel MD Unavailable Unavailable De CrowSamuel MD Unavailable Unavailable De CrowSamuel MD Unavailable Unavailable De Samuel Maria MD Unavailable Unavailable De CrowSamuel MD Unavailable Unavailable De CrowSamuel MD Unavailable Unavailable De CrowSamuel MD Unavailable Unavailable De CrowSamuel MD Unavailable Unavailable De CrowSamuel MD Unavailable Unavailable De CrowSamuel MD Unavailable Unavailable De CrowSamuel MD Unavailable Unavailable De CrowSamuel MD Unavailable Unavailable De CrowSamuel MD Unavailable Unavailable De CrowSamuel MD Unavailable Unavailable De CrowSamuel MD Unavailable Unavailable De CrowSamuel MD Unavailable Unavailable De CrowSamuel MD Unavailable Unavailable De CrowSamuel MD Unavailable Unavailable De CrowSamuel MD Unavailable Unavailable De CrowSamuel MD Unavailable Unavailable De Samuel Maria MD Unavailable Unavailable De Samuel Maria MD Unavailable Unavailable De CrowSamuel MD Unavailable Unavailable De CrowSamuel MD Unavailable Unavailable De CrowSamuel MD Unavailable Unavailable De CrowSamuel MD Unavailable Unavailable De Samuel Maria MD Unavailable Unavailable De Samuel Maria MD Unavailable Unavailable De CrowSamuel MD Unavailable Unavailable De Samuel Maria MD Unavailable Unavailable De CrowSamuel MD Unavailable Unavailable De Samuel Maria MD Unavailable Unavailable De Samuel Maria MD Unavailable Unavailable De Samuel Maria MD Unavailable Unavailable De Samuel Maria MD Unavailable Unavailable De Samuel Maria MD Unavailable Unavailable De Samuel Maria MD Unavailable Unavailable De Samuel Maria MD Unavailable Unavailable Samuel Pham MD Unavailable Unavailable De Samuel Maria MD Unavailable Unavailable De Samuel Maria MD Unavailable Unavailable MONSEYMelissa MD Unavailable Unavailable GARZA, L MOISES MD Unavailable Unavailable GARZA, L MOISES MD Unavailable Unavailable GARZA, L MOISES MD Unavailable Unavailable GARZA, L MOISES MD Unavailable Unavailable GARZA, L MOISES MD Unavailable Unavailable GARZA, L MOISES MD Unavailable Unavailable GARZA, L MOISES MD Unavailable Unavailable GARZA, L MOISES MD Unavailable Unavailable GARZA, L MOISES MD Unavailable Unavailable GARZA, L MOISES MD Unavailable Unavailable GARZA, L MOISES MD Unavailable Unavailable GARZA, L MOISES MD Unavailable Unavailable GARZA, L MOISES MD Unavailable Unavailable GARZA, L MOISES MD Unavailable Unavailable GARZA, L MOISES MD Unavailable Unavailable GARZA, L MOISES MD Unavailable Unavailable GARZA, L MOISES MD Unavailable Unavailable GARZA, L MOISES MD Unavailable Unavailable GARZA, L MOISES MD Unavailable Unavailable GARZA, L MOISES MD Unavailable Unavailable GARZA, L MOISES MD Unavailable Unavailable GARZA, L MOISES MD Unavailable Unavailable GARZA, L MOISES MD Unavailable Unavailable MONSEY, L MOISES MD Unavailable Unavailable MONSEY, L MOISES MD Unavailable Unavailable MONSEY, L MOISES MD Unavailable Unavailable MONSEY, L MOISES MD Unavailable Unavailable MONSEY, L MOISES MD Unavailable Unavailable MONSEY, L MOISES MD Unavailable Unavailable MONSEY, L MOISES MD Unavailable Unavailable MONSEY, L MOISES MD Unavailable Unavailable MONSEY, L MOISES MD Unavailable Unavailable MONSEY, L MOISES MD Unavailable Unavailable MONSEY, L MOISES MD Unavailable Unavailable MONSEY, L MOISES MD Unavailable Unavailable MONSEY, L MOISES MD Unavailable Unavailable MONSEY, L MOISES MD Unavailable Unavailable MONSEY, L MOISES MD Unavailable Unavailable MONSEY, L MOISES MD Unavailable Unavailable MONSEY, L MOISES MD Unavailable Unavailable MONSEY, L MOISES MD Unavailable Unavailable MONSEY, L MOISES MD Unavailable Unavailable MONSEY, L MOISES MD Unavailable Unavailable MONSEY, L MOISES MD Unavailable Unavailable MONSEY, L MOISES MD Unavailable Unavailable MONSEY, L MOISES MD Unavailable Unavailable MONSEY, L MOISES MD Unavailable Unavailable MONSEY, L MOISES MD Unavailable Unavailable MONSEY, L MOISES MD Unavailable Unavailable MONSEY, L MOISES MD Unavailable Unavailable MONSEY, L MOISES MD Unavailable Unavailable MONSEY, L MOISES MD Unavailable Unavailable MONSEY, L MOISES MD Unavailable Unavailable GARZA, L MOISES MD Unavailable Unavailable GARZA, L MOISES MD Unavailable Unavailable GARZA, L MOISES MD Unavailable Unavailable GARZA, L MOISES MD Unavailable Unavailable MONSEY, L MOISES MD Unavailable Unavailable MONSEY, L MOISES MD Unavailable Unavailable MONSEY, L MOISES MD Unavailable Unavailable MONSEY, L MOISES MD Unavailable Unavailable MONSEY, L MOISES MD Unavailable Unavailable GARZA, L MOISES MD Unavailable Unavailable GARZA, L MOISES MD Unavailable Unavailable GARZA, Melissa DE LEON MD Unavailable Unavailable GARZA, Melissa DE LEON MD Unavailable Unavailable GARZA, Melissa DE LEON MD Unavailable Unavailable GARZA, Melissa DE LEON MD Unavailable Unavailable RAY, Yina MARIE MD Unavailable Unavailable RAY, Yina MARIE MD Unavailable Unavailable RAY, Yina MARIE MD Unavailable Unavailable RAY, Yina MARIE MD Unavailable Unavailable RAY, Yina MARIE MD Unavailable Unavailable RAY, Yina MARIE MD Unavailable Unavailable RAY, Yina MARIE MD Unavailable Unavailable RAY, Yina MARIE MD Unavailable Unavailable RAY, Yina MARIE MD Unavailable Unavailable RAY, Yina MARIE MD Unavailable Unavailable RAY, Yina MARIE MD Unavailable Unavailable RAY, Yina MARIE MD Unavailable Unavailable RAY, Yina MARIE MD Unavailable Unavailable RAY, Yina MARIE MD Unavailable Unavailable RAY, Yina MARIE MD Unavailable Unavailable RAY, Yina MARIE MD Unavailable Unavailable RAY, Yina MARIE MD Unavailable Unavailable RAY, Yina MARIE MD Unavailable Unavailable RAY, Yina MARIE MD Unavailable Unavailable RAY, Yina MARIE MD Unavailable Unavailable RAY, Yina MARIE MD Unavailable Unavailable RAY, Yina MARIE MD Unavailable Unavailable RAY, Yina MARIE MD Unavailable Unavailable RAY, Yina MARIE MD Unavailable Unavailable RAY, Yina MARIE MD Unavailable Unavailable RAY, Yina MARIE MD Unavailable Unavailable RAY, Yina MARIE MD Unavailable Unavailable RAY, Yina MARIE MD Unavailable Unavailable RAY, Yina MARIE MD Unavailable Unavailable RAY, Yina MARIE MD Unavailable Unavailable RAY, Yina MARIE MD Unavailable Unavailable RAY, Yina MARIE MD Unavailable Unavailable RAY, Yina MARIE MD Unavailable Unavailable RAY, Yina MARIE MD Unavailable Unavailable RAY, Yina MARIE MD Unavailable Unavailable RAY, Yina MARIE MD Unavailable Unavailable RAY, Yina MARIE MD Unavailable Unavailable RAY, Yina MARIE MD Unavailable Unavailable RAY, Yina MARIE MD Unavailable Unavailable RAY, Yina MARIE MD Unavailable Unavailable RAY, Yina MARIE MD Unavailable Unavailable RAY, Yina MARIE MD Unavailable Unavailable RAY, Yina MARIE MD Unavailable Unavailable RAY, Yina MARIE MD Unavailable Unavailable RAY, Yina MARIE MD Unavailable Unavailable RAY, Yina MARIE MD Unavailable Unavailable Prashant CARRILLO MD Unavailable Unavailable Prashant CARRILLO MD Unavailable Unavailable Prashant CARRILLO MD Unavailable Unavailable Prashant CARRILLO MD Unavailable Unavailable Prashant CARRILLO MD Unavailable Unavailable Prashant CARRILLO MD Unavailable Unavailable Prashant CARRILLO MD Unavailable Unavailable Prashant CARRILLO MD Unavailable Unavailable Prashant CARRILLO MD Unavailable Unavailable LORENA, R ISIDRO MD Unavailable Unavailable LORENA, R ISIDRO MD Unavailable Unavailable LORENA, R ISIDRO LAKHANI Unavailable Unavailable LORENA, Prashant FELIX MD Unavailable Unavailable LORENA, Prashant FELIX MD Unavailable Unavailable LORENA, Prashant FELIX MD Unavailable Unavailable LORENA, Prashant FELIX MD Unavailable Unavailable LORENA, R ISIDRO LAKHANI Unavailable Unavailable LORENA, R ISIDRO LAKHANI Unavailable Unavailable LORENA, R ISIDRO LAKHANI Unavailable Unavailable LORENA, Prashant FELIX MD Unavailable Unavailable LORENA, Prashant FELIX MD Unavailable Unavailable LORENA, Prashant FELIX MD Unavailable Unavailable LORENA, Prashant FELIX MD Unavailable Unavailable LORENA, Prashant FELIX MD Unavailable Unavailable LORENA, Prashant FELIX MD Unavailable Unavailable LORENA, Prashant FELIX MD Unavailable Unavailable LORENA, Prashant FELIX MD Unavailable Unavailable LORENA, Prashant FELIX MD Unavailable Unavailable LORENA, R ISIDRO LAKHANI Unavailable Unavailable LORENA, R ISIDRO LAKHANI Unavailable Unavailable LORENA, Prashant FELIX MD Unavailable Unavailable LORENA, Prashant FELIX MD Unavailable Unavailable LORENA, Prashant FELIX MD Unavailable Unavailable LORENA, Prashant FELIX MD Unavailable Unavailable LORENA, Prashant FELIX MD Unavailable Unavailable LORENA, Prashant FELIX MD Unavailable Unavailable LORENA, Prashant FELIX MD Unavailable Unavailable LORENA, Prashant FELIX MD Unavailable Unavailable LORENA, R ISIDRO LAKHANI Unavailable Unavailable LORENA, Prashant FELIX MD Unavailable Unavailable LORENA, Prashant FELIX MD Unavailable Unavailable LORENA, Prashant FELIX MD Unavailable Unavailable LORENA, Prashant FELIX MD Unavailable Unavailable LORENA, Prashant FELIX MD Unavailable Unavailable LORENA, R ISIDRO LAKHANI Unavailable Unavailable LORENA, R ISIDRO LAKHANI Unavailable Unavailable LORENA, Prashant FELIX MD Unavailable Unavailable LORENA, Prashant FELIX MD Unavailable Unavailable LORENA, Prashant FELIX MD Unavailable Unavailable LORENA, Prashant FELIX MD Unavailable Unavailable LORENA, Prashant FELIX MD Unavailable Unavailable LORENA, Prashant FELIX MD Unavailable Unavailable LORENA, Prashant FELIX MD Unavailable Unavailable LORENA, R ISIDRO MD Unavailable Unavailable LORENA, R ISIDRO MD Unavailable Unavailable LORENA, R ISIDRO MD Unavailable Unavailable LORENA, R ISIDRO MD Unavailable Unavailable LORENA, R ISIDRO MD Unavailable Unavailable LORENA, R ISIDRO MD Unavailable Unavailable LORENA, R ISIDRO MD Unavailable Unavailable LORENA, R ISIDRO MD Unavailable Unavailable LORENA, R ISIDRO MD Unavailable Unavailable LORENA, R ISIDRO MD Unavailable Unavailable LORENA, R ISIDRO MD Unavailable Unavailable LORENA, R ISIDRO MD Unavailable Unavailable LORENA, R ISIDRO MD Unavailable Unavailable LORENA, R ISIDRO MD Unavailable Unavailable Agheli, Aref MD Unavailable Unavailable Agheli, Aref MD Unavailable Unavailable Agheli, Aref MD Unavailable Unavailable Agheli, Aref MD Unavailable Unavailable Agheli, Aref MD Unavailable Unavailable Agheli, Aref MD Unavailable Unavailable Agheli, Aref MD Unavailable Unavailable Agheli, Aref MD Unavailable Unavailable Agheli, Aref MD Unavailable Unavailable Agheli, Aref MD Unavailable Unavailable Agheli, Aref MD Unavailable Unavailable Agheli, Aref MD Unavailable Unavailable Agheli, Aref MD Unavailable Unavailable Agheli, Aref MD Unavailable Unavailable Agheli, Aref MD Unavailable Unavailable Agheli, Aref MD Unavailable Unavailable Agheli, Aref MD Unavailable Unavailable Agheli, Aref MD Unavailable Unavailable Agheli, Aref MD Unavailable Unavailable Agheli, Aref MD Unavailable Unavailable Agheli, Aref MD Unavailable Unavailable Agheli, Aref MD Unavailable Unavailable Agheli, Aref MD Unavailable Unavailable Agheli, Aref MD Unavailable Unavailable Agheli, Aref MD Unavailable Unavailable Agheli, Aref MD Unavailable Unavailable Agheli, Aref MD Unavailable Unavailable Agheli, Aref MD Unavailable Unavailable Agheli, Aref MD Unavailable Unavailable Agheli, Aref MD Unavailable Unavailable Agheli, Aref MD Unavailable Unavailable Agheli, Aref MD Unavailable Unavailable Agheli, Aref MD Unavailable Unavailable Agheli, Aref MD Unavailable Unavailable Agheli, Aref MD Unavailable Unavailable Agheli, Aref MD Unavailable Unavailable Agheli, Aref MD Unavailable Unavailable Agheli, Aref MD Unavailable Unavailable Agheli, Aref MD Unavailable Unavailable Agheli, Aref MD Unavailable Unavailable Agheli, Aref MD Unavailable Unavailable Agheli, Aref MD Unavailable Unavailable Agheli, Aref MD Unavailable Unavailable Agheli, Aref MD Unavailable Unavailable Agheli, Aref MD Unavailable Unavailable Agheli, Aref MD Unavailable Unavailable Agheli, Aref MD Unavailable Unavailable Agheli, Aref MD Unavailable Unavailable Agheli, Aref MD Unavailable Unavailable Agheli, Aref MD Unavailable Unavailable Agheli, Aref MD Unavailable Unavailable Agheli, Aref MD Unavailable Unavailable Agheli, Aref MD Unavailable Unavailable Agheli, Aref MD Unavailable Unavailable Agheli, Aref MD Unavailable Unavailable Agheli, Aref MD Unavailable Unavailable Agheli, Aref MD Unavailable Unavailable Agheli, Aref MD Unavailable Unavailable Agheli, Aref MD Unavailable Unavailable Agheli, Aref MD Unavailable Unavailable Agheli, Aref MD Unavailable Unavailable Agheli, Aref MD Unavailable Unavailable PHYSICIAN, ER Unavailable Unavailable Skipton, E Cait MD Unavailable Unavailable Skipton, E Cait MD Unavailable Unavailable Skipton, E Cait MD Unavailable Unavailable Skipton, E Cait MD Unavailable Unavailable Skipton, E Cait MD Unavailable Unavailable Skipton, E Cait MD Unavailable Unavailable Skipton, E Cait MD Unavailable Unavailable Skipton, E Cait MD Unavailable Unavailable Skipton, E Cait MD Unavailable Unavailable Skipton, E Cait MD Unavailable Unavailable Skipton, E Cait MD Unavailable Unavailable Skipton, E Cait MD Unavailable Unavailable Skipton, E Cait MD Unavailable Unavailable Skipton, E Cait MD Unavailable Unavailable Skipton, E Cait MD Unavailable Unavailable Skipton, E Cait MD Unavailable Unavailable Skipton, E Cait MD Unavailable Unavailable Skipton, E Cait MD Unavailable Unavailable Skipton, E Cait MD Unavailable Unavailable Skipton, E Cait MD Unavailable Unavailable Skipton, E Cait MD Unavailable Unavailable Skipton, E Cait MD Unavailable Unavailable Skipton, E Cait MD Unavailable Unavailable Skipton, E Cait MD Unavailable Unavailable Skipton, E Cait MD Unavailable Unavailable Skipton, E Cait MD Unavailable Unavailable Skipton, E Cait MD Unavailable Unavailable Skipton, E Cait MD Unavailable Unavailable Skipton, E Cait MD Unavailable Unavailable Skipton, E Cait MD Unavailable Unavailable Skipton, E Cait MD Unavailable Unavailable Skipton, E Cait MD Unavailable Unavailable Skipton, E Cait MD Unavailable Unavailable Skipton, E Cait MD Unavailable Unavailable Skipton, E Cait MD Unavailable Unavailable Skipton, E Cait MD Unavailable Unavailable Skipton, E Cait MD Unavailable Unavailable Skipton, E Cait MD Unavailable Unavailable Skipton, E Cait MD Unavailable Unavailable Skipton, E Cait MD Unavailable Unavailable Skipton, E Cait MD Unavailable Unavailable Skipton, E Cait MD Unavailable Unavailable Skipton, E Cait MD Unavailable Unavailable Skipton, E Cait MD Unavailable Unavailable Skipton, E Cait MD Unavailable Unavailable Skipton, E Cait MD Unavailable Unavailable Skipton, E Cait MD Unavailable Unavailable Skipton, E Cait MD Unavailable Unavailable Skipton, E Cait MD Unavailable Unavailable Skipton, E Cait MD Unavailable Unavailable Skipton, E Cait MD Unavailable Unavailable HANH, A JOHNATHON MD Unavailable Unavailable HANH, A JOHNATHON MD Unavailable Unavailable HANH, A JOHNATHON MD Unavailable Unavailable HANH, A JOHNATHON MD Unavailable Unavailable HANH, A JOHNATHON MD Unavailable Unavailable HANH, A JOHNATHON MD Unavailable Unavailable HANH, A JOHNATHON MD Unavailable Unavailable HANH, A JOHNATHON MD Unavailable Unavailable HANH, A JOHNATHON MD Unavailable Unavailable HANH, A JOHNATHON MD Unavailable Unavailable HANH, A JOHNATHON MD Unavailable Unavailable HANH, A JOHNATHON MD Unavailable Unavailable HANH, A JOHNATHON MD Unavailable Unavailable HANH, A JOHNATHON MD Unavailable Unavailable HANH, A JOHNATHON MD Unavailable Unavailable HANH, A JOHNATHON MD Unavailable Unavailable HANH, A JOHNATHON MD Unavailable Unavailable HANH, A JOHNATHON MD Unavailable Unavailable HANH, A JOHNATHON MD Unavailable Unavailable HANH, A JOHNATHON MD Unavailable Unavailable HANH, A JOHNATHON MD Unavailable Unavailable HANH, A JOHNATHON MD Unavailable Unavailable HANH, A JOHNATHON MD Unavailable Unavailable HANH, A JOHNATHON MD Unavailable Unavailable HANH, A JOHNATHON MD Unavailable Unavailable HANH, A JOHNATHON MD Unavailable Unavailable HANH, A JOHNATHON MD Unavailable Unavailable HANH, A JOHNATHON MD Unavailable Unavailable HANH, A JOHNATHON MD Unavailable Unavailable HANH, A JOHNATHON MD Unavailable Unavailable HANH, A JOHNATHON MD Unavailable Unavailable HANH, A JOHNATHON MD Unavailable Unavailable HANH, A JOHNATHON MD Unavailable Unavailable HANH, A JOHNATHON MD Unavailable Unavailable HANH, A JOHNATHON MD Unavailable Unavailable HANH, A JOHNATHON MD Unavailable Unavailable HANH, A JOHNATHON MD Unavailable Unavailable HANH, A JOHNATHON MD Unavailable Unavailable HANH, A JOHNATHON MD Unavailable Unavailable HANH, A JOHNATHON MD Unavailable Unavailable HANH, A JOHNATHON MD Unavailable Unavailable HANH, A JOHNATHON MD Unavailable Unavailable HANH, Aden DIEGO MD Unavailable Unavailable HANH, Aden DIEGO MD Unavailable Unavailable HANH, Aden DIEGO MD Unavailable Unavailable HANH, Aden DIEGO MD Unavailable Unavailable HANH, Aden DIEGO MD Unavailable Unavailable HANH, Aden DIEGO MD Unavailable Unavailable HANH, Aden DIEGO MD Unavailable Unavailable HANH, Aden DIEGO MD Unavailable Unavailable HANH, Aden DIEGO MD Unavailable Unavailable HANH, Aden DIEGO MD Unavailable Unavailable HANH, Aden DIEGO MD Unavailable Unavailable HANH, Aden DIEGO MD Unavailable Unavailable HANH, Aden DIEGO MD Unavailable Unavailable HANH, Aden DIEGO MD Unavailable Unavailable HANH, Aden DIEGO MD Unavailable Unavailable HANH, Aden DIEGO MD Unavailable Unavailable HANH, Aden DIEGO MD Unavailable Unavailable HANH, Aden DIEGO MD Unavailable Unavailable HANH, A JOHNATHON LAKHANI Unavailable Unavailable HANH, Aden DIEGO MD Unavailable Unavailable HANH, Aden DIEGO MD Unavailable Unavailable HANH, Aden DIEGO MD Unavailable Unavailable HAHN, Aden DIEGO MD Unavailable Unavailable HANH, Aden DIEGO MD Unavailable Unavailable HANH, Aden DIEGO MD Unavailable Unavailable HANH, Aden DIEGO MD Unavailable Unavailable HANH, Aden DIEGO MD Unavailable Unavailable HANH, Aden DIEGO MD Unavailable Unavailable GEJOSE MIGUEL ROMERO MD Unavailable Unavailable GEDELAJOSE MIGUEL MD Unavailable Unavailable GEDELAJOSE MIGUEL MD Unavailable Unavailable GEDELAJOSE MIGUEL MD Unavailable Unavailable GEDELAJOSE MIGUEL MD Unavailable Unavailable GERHEAAJOSE MIGUEL MD Unavailable Unavailable GEDELAJOSE MIGUEL MD Unavailable Unavailable GERHEAAJOSE MIGUEL MD Unavailable Unavailable GERHEAAJOSE MIGUEL MD Unavailable Unavailable GEDELAJOSE MIGUEL MD Unavailable Unavailable GERHEAAJOSE MIGUEL MD Unavailable Unavailable GERHEAAJOSE MIGUEL MD Unavailable Unavailable GERHEAAJOSE MIGUEL MD Unavailable Unavailable GERHEAAJOSE MIGUEL MD Unavailable Unavailable GEDELAJOSE MIGUEL MD Unavailable Unavailable GEDELAJOSE MIGUEL MD Unavailable Unavailable GEDELAJOSE MIGUEL MD Unavailable Unavailable GEDELAJOSE MIGUEL MD Unavailable Unavailable GEDELAJOSE MIGUEL MD Unavailable Unavailable GEDELAJOSE MIGUEL MD Unavailable Unavailable GEDELAJOSE MIGUEL MD Unavailable Unavailable GEDELAJOSE MIGUEL MD Unavailable Unavailable GERHEAAJOSE MIGUEL MD Unavailable Unavailable MANLAUREN RAY MD Unavailable Unavailable LAUREN KOHLER MD Unavailable Unavailable LAUREN KOHLER MD Unavailable Unavailable LAUREN KOHLER MD Unavailable Unavailable LAUREN KOHLER MD Unavailable Unavailable LAUREN KOHLER MD Unavailable Unavailable LAUREN KOHLER MD Unavailable Unavailable MANOCHA, LAUREN LAKHANI Unavailable Unavailable MANOCHA, LAUREN LAKHANI Unavailable Unavailable MANOCHA, LAUREN LAKHANI Unavailable Unavailable MANOCHA, LAUREN LAKHANI Unavailable Unavailable MANOCHA, LAUREN LAKHANI Unavailable Unavailable MANOCHA, LAUREN LAKHANI Unavailable Unavailable MANOCHA, LAUREN LAKHANI Unavailable Unavailable MANOCHA, LAUREN LAKHANI Unavailable Unavailable MANOCHA, LAUREN LAKHANI Unavailable Unavailable MANOCHA, LAUREN LAKHANI Unavailable Unavailable MANOCHA, LAUREN LAKHANI Unavailable Unavailable MANOCHA, LAUREN LAKHANI Unavailable Unavailable MANOCHA, LAUREN LAKHANI Unavailable Unavailable MANOCHA, LAUREN LAKHANI Unavailable Unavailable MANOCHA, LAUREN LAKHANI Unavailable Unavailable MANOCHA, LAUREN LAKHANI Unavailable Unavailable MANOCHA, LAUREN LAKHANI Unavailable Unavailable MANOCHA, LAUREN LAKHANI Unavailable Unavailable MANOCHA, LAUREN LAKHANI Unavailable Unavailable MANOCHA, LAUREN LAKHANI Unavailable Unavailable MANOCHA, LAUREN LAKHANI Unavailable Unavailable MANOCHA, LAUREN LAKHANI Unavailable Unavailable MANOCHA, LAUREN LAKHANI Unavailable Unavailable MANOCHA, LAUREN LAKHANI Unavailable Unavailable Prashant CARNES [id number] Unavailable Unavailable SYSTEM IN, NOT IN PROVIDER Unavailable Unavailable MICHELLE, F CHERI DO Unavailable Unavailable MICHELLE, F CHERI DO Unavailable Unavailable MICHELLE, F CHERI DO Unavailable Unavailable MICHELLE, F CHERI DO Unavailable Unavailable MICHELLE, F CHERI DO Unavailable Unavailable MICHELLE, F CHERI DO Unavailable Unavailable MICHELLE, F CHERI DO Unavailable Unavailable MICHELLE, F CHERI DO Unavailable Unavailable MICHELLE, F CHERI DO Unavailable Unavailable MICHELLE, F CHERI DO Unavailable Unavailable MICHELLE, F CHERI DO Unavailable Unavailable MICHELLE, F CHERI DO Unavailable Unavailable MICHELLE, F CHERI DO Unavailable Unavailable MICHELLE, F CHERI DO Unavailable Unavailable MICHELLE, F CHERI DO Unavailable Unavailable MICHELLE, F CHERI DO Unavailable Unavailable MICHELLE, F CHERI DO Unavailable Unavailable MICHELLE, F CHERI DO Unavailable Unavailable MICHELLE, F CHERI DO Unavailable Unavailable MICHELLE, F CHERI DO Unavailable Unavailable MICHELLE, F CHERI DO Unavailable Unavailable MICHELLE, F CHERI DO Unavailable Unavailable MICHELLE, F CHERI DO Unavailable Unavailable MICHELLE, F CHERI DO Unavailable Unavailable MICHELLE, F CHERI DO Unavailable Unavailable MICHELLE, F CHERI DO Unavailable Unavailable MICHELLE, F CHERI DO Unavailable Unavailable MICHELLE, F CHERI DO Unavailable Unavailable MICHELLE, F CHERI DO Unavailable Unavailable MICHELLE, F CHERI DO Unavailable Unavailable MICHELLE, F CHERI DO Unavailable Unavailable MICHELLE, F CHERI DO Unavailable Unavailable VENERUS, Carmen MICHAEL MD Unavailable Unavailable VENERUS, Carmen MICHAEL MD Unavailable Unavailable VENERUS, Carmen MICHAEL MD Unavailable Unavailable VENERUS, Carmen MICHAEL MD Unavailable Unavailable VENERUS, Carmen MICHAEL MD Unavailable Unavailable VENERUS, Carmen MICHAEL MD Unavailable Unavailable VENERUS, Carmen MICHAEL MD Unavailable Unavailable VENERUS, Carmen MICHAEL MD Unavailable Unavailable VENERUS, Carmen MICHAEL MD Unavailable Unavailable Re-disclosure Warning The records that you are about to access may contain information from federally-assisted alcohol or drug abuse programs. If such information is present, then the following federally mandated warning applies: This information has been disclosed to you from records protected by federal confidentiality rules (42 CFR part 2). The federal rules prohibit you from making any further disclosure of this information unless further disclosure is expressly permitted by the written consent of the person to whom it pertains or as otherwise permitted by 42 CFR part 2. A general authorization for the release of medical or other information is NOT sufficient for this purpose. The Federal rules restrict any use of the information to criminally investigate or prosecute any alcohol or drug abuse patient.The records that you are about to access may contain highly sensitive health information, the redisclosure of which is protected by Article 27-F of the [facility] Public [facility] law. If you continue you may have access to information: Regarding HIV / AIDS; Provided by facilities licensed or operated by the [facility] Office of Mental Health; or Provided by the [facility] Office for People With Developmental Disabilities. If such information is present, then the following [facility] mandated warning applies: This information has been disclosed to you from confidential records which are protected by state law. State law prohibits you from making any further disclosure of this information without the specific written consent of the person to whom it pertains, or as otherwise permitted by law. Any unauthorized further disclosure in violation of state law may result in a fine or longterm sentence or both. A general authorization for the release of medical or other information is NOT sufficient authorization for further disc losure. Allergies and Adverse Reactions Type Description Substance Reaction Status Data Source(s ) Drug allergy FENTANYL FENTANYL [facility] CLASS SULFA (sulfonamide) SULFA (sulfonamide) HIVES; DYSPNEA [facility] Drug allergy trazodone trazodone Swallowing problem [facility] Drug allergy tomato tomato Anaphylaxis [facility] Drug allergy Sulfa (Sulfonamide Antibiotics) Sulfa (Sulfonami de Antibiotics) Anaphylaxis [facility] Drug allergy NSAIDS (Non-Steroidal Anti-Inflammatory Drug) NSAIDS (Non-Steroidal Anti-Inflammatory Drug) Bleeding [facility] Drug allergy Levaquin Levaquin Swelling [facility] DRUG CHLORHEXIDINE TOWELETTE CHLORHEXIDINE TOWELETTE Itching Lo w [facility] SYSTEMIC NO ALLERGIES ON FILE NO ALLERGIES ON FILE [facility] Drug Class NSAIDS (NON-STEROIDAL ANTI-INFLAMMATORY DRUG) NSAIDS (NON-STEROIDAL ANTI-INFLAMMATORY DRUG) GI Bleeding [facility] DRUG INGREDI TRAZODONE Trazodone Sob [facility] Drug Class SULFA (SULFONAMIDE ANTIBIOTICS) SULFA (SULFONAMI DE ANTIBIOTICS) Anaphylaxis High [facility] Drug allergy Levaquin Drug allergy Anaphylaxis Active eCW1 ([facility]) NSAIDS NSAIDS NSAIDS GI Bleed Active eCW1 ([facility]) TOMATOES TOMATOES TOMATOES Anaphylaxis Active eCW1 ([facility]) NSAIDS NSAIDS NSAIDS GI Bleed Active eCW1 ([facility]) TOMATOES TOMATOES TOMATOES Anaphylaxis Active eCW1 ([facility]) NSAIDS NSAIDS NSAIDS GI Bleed Active eCW1 ([facility]) TOMATOES TOMATOES TOMATOES Anaphylaxis Active eCW1 ([facility]) NSAIDS NSAIDS NSAIDS GI Bleed Active eCW1 ([facility]) TOMATOES TOMATOES TOMATOES Anaphylaxis Active eCW1 ([facility]) NSAIDS NSAIDS NSAIDS GI Bleed Active eCW1 ([facility]) TOMATOES TOMATOES TOMATOES Anaphylaxis Active eCW1 ([facility]) Levaquin Levaquin Levofloxacin 750 MG Oral Tablet [Levaquin ] Anaphylaxis Active eCW1 ([facility]) NSAIDS NSAIDS NSAIDS GI Bleed Active eCW1 ([facility]) TOMATOES TOMATOES TOMATOES Anaphylaxis Active eCW1 ([facility]) Food allergy tomato tomato Anaphylaxis [facility] Drug allergy levofloxacin Levofloxacin Anaphylaxis [facility] Drug allergy trazodone trazodone Dyspnea [facility] Drug allergy Sulfa (Sulfonamide Antibiotics) Sulfa (Sulfonami de Antibiotics) Anaphylaxis [facility] Drug allergy NSAIDS (Non-Steroidal Anti-Inflamma NSAI DS (Non-Steroidal Anti-Inflamma Abnormal Coagulation [facility] Family History Family Member Name Family Member Gender Family Member Status Date o f Status Description Data Source(s) Unknown Unknown Problem MED[facility] ([facility]) father,mgf,mgm Unknown Male Problem MEDENT ([facility]) Unknown Male Problem MEDENT ([facility]) Unknown Male Problem MEDENT ([facility]) Encounters Encounter Providers Location Date Indications Data Source(s ) Outpatient Attender: MOISES GARZA MDReferrer: IISDRO GIPSON MD 11/29/2020 12:00:00 AM EST [facility] Unknown [address] [facility] [address] 10/28/2020 12:00:00 AM EST eCW1 ([facility]) Unknown [address] [facility] [address] 10/27/2020 12:00:00 AM EST eCW1 ([facility]) Outpatient Attender: JAMES BUCKNER PA-C [facility] Internal Med at [place] 10/19/2020 01:31:00 AM EST [facility] ([facility] Inpatient Attender: ER PHYSICIANAttend er: Adrian Pham MDAttender: SONYA DURANT MDAttender: JOSE GILLIS MDAdmitter: JOSE GILLIS MD 10/18/2020 04:51:04 AM EST [facility] Outpatient Attender: Adrian Pham MD [facility] Internal Med at [place] 10/18/2020 01:37:00 AM EST [facility] ([facility]) Inpatient Attender: Adrian Pham MDAttender: SONYA WITT 10/17/2020 10:07:00 PM EST [facility] ( in Healthcare facility) Attender: Edward Pham MDAdmitter: SCOTT BATISTA MDConsultant: Cait Wyatt MD 10/17/2020 10:07:0 0 PM EST [facility] Inpatient Attender: Adrian Pham MDAttender: SONYA DURANTAttender: SCOTT BATISTA MDAttender: ER PHYSICIANAdmitter: Adrian Pham MD 10/17/2020 07:14:00 PM EST - 10/29/2020 01:12:00 PM EST [facility] A[facility]AL PAIN Patient discharged. Outpatient Referrer: PROVIDER SYSTEM IN 07A-UHTRANS 10/17/2020 0 4:52:39 PM EST intractable abd pain [facility] intractable abd pain Outpatient Attender: [facility] 10/17/2020 01:3 8:00 PM EST [facility] Emergency Attender: MARCELLE GOMEZCOConsultant: Cait cortes MD 10/17/2020 11:18:00 AM EST - 10/17/2020 05:42:00 PM EST [facility] Patient discharged. Outpatient Attender: Angelica sharma 10/09/2020 10:30:00 AM EST [facility] ([facility] [place] [address] [facility] [address] 10/07/2020 12:00:00 AM EST eCW1 ([facility]) [place] [address] [facility] [facility] [address] 10/07/2020 12:00:00 AM EST eCW1 ([facility]) Outpatient Attender: Paulie Escamilla MDReferrer: ISIDRO Thomas [id number] 09/23/2020 05:23:26 AM EST [facility] [place] [address] [facility] [facility] [address] 08/25/2020 12:00:00 AM EST eCW1 ([facility]) Outpatient Attender: Paulie Escamilla MDReferrer: ISIDRO Thomas [id number] 08/24/2020 03:24:50 PM EST [facility] Outpatient Attender: Paulie Escamilla MDReferrer: ISIDRO LORENA Thomas [id number] 08/24/2020 01:46:37 PM EST [facility] Outpatient Attender: Paulie Escamilla MDReferrer: ISIDRO LORENA Yina Thomas [id number] 08/24/2020 01:42:32 PM EST [facility] Outpatient Attender: Paulie Escamilla MDReferrer: ISIDRO LORENA Thomas [id number] 08/24/2020 01:32:14 PM EST [facility] Outpatient Attender: Paulie Escamilla MDReferrer: ISIDRORACHEL Thomas [id number] 08/24/2020 01:30:25 PM EST [facility] Outpatient Attender: Paulie Escamilla MDReferrer: ISIDRORACHEL Thomas [id number] 08/24/2020 01:29:15 PM EST [facility] [place] [address] [facility] [facility] [address] 08/18/2020 12:00:00 AM EDT eCW1 ([facility]) Outpatient Attender: Yarelis Blanchard 08/17/2020 12:00:00 AM ED T [facility] [place] [address] [facility] [address] 08/15/2020 12:00:00 AM EDT eCW1 ([facility]) Outpatient Attender: Paulie Escamilla MDReferrer: ISIDRO Thomas [id number] 08/12/2020 12:10:37 PM EDT [facility] Outpatient Attender: Mich EatonReferrer: ISIDRO CARRILLO MD [id number] 08/12/2020 12:05:57 PM EDT [facility] Outpatient Attender: Narinder Iverson MDReferrer: ISIDRO CARRILLO MD [id number] 08/11/2020 04:18:25 AM EDT [facility] [address] [facility] [facility] [address] 08/05/2020 12:00:00 AM EDT eCW1 ([facility]) Outpatient Attender: Narinder Iverson MDReferrer: ISIDRO CARRILLO MD [id number] 08/03/2020 09:58:35 AM EDT [facility] Outpatient Attender: Narinder Iverson MDReferrer: ISIDRO CARRILLO MD [id number] 08/03/2020 09:51:06 AM EDT [facility] Outpatient Attender: Narinder Iverson MDReferrer: ISIDRO CARRILLO MD [id number] 08/02/2020 08:21:51 AM EDT [facility] Outpatient Referrer: ISIDRO CARRILLO MD 08/02/2020 08:14:19 AM EDT [facility] 08/02/2020 08:06:34 AM EDT [facility] Attender: RASHMI LEROY MD [id number] 08/01/2020 01:56 :38 PM EDT [facility] INPATIENT Attender: JOSEM IGUEL WESTON MDAt tender: Dinesh SorensonAdmitter: DINESH HENNING MDConsultant: Med IsabelConsultant: Julio Grayson MDConsultant: Michael Anton MD [id number] 07/31/2020 03:12:38 PM EDT - 08/04/2020 12:00:00 PM EDT [facility] Patient discharged. Outpatient Referrer: PROVIDER SYSTEM IN 07A-UHTRANS 07/31/2020 0 7:59:50 AM EDT [facility] abd pain Outpatient 07/31/2020 06:25:00 AM EDT [facility] Emergency Attender: CHERI BURRIS DOConsultant: Cait langston MD 07/31/2020 05:17:00 AM EDT - 07/31/2020 11:00:00 AM EDT [facility] Patient discharged. Outpatient 07/30/2020 03:50:00 PM EDT [facility] Emergency Attender: CHERI BURRIS DOConsultant: Cait langston MD 07/30/2020 03:19:00 PM EDT - 07/30/2020 07:25:00 PM EDT [facility] Patient discharged. Emergency Attender: ALEC CALDERÓN MDConsultant: Cait valerio MD 06/03/2020 04:15:00 PM EDT - 06/03/2020 08:21:00 PM EDT [facility] Patient discharged. Outpatient 05/31/2020 08:00:00 PM EDT [facility] Emergency Attender: Mikey Oswald PAConsultant: Cait meza MD 05/31/2020 07:27:00 PM EDT - 05/31/2020 10:28:00 PM EDT [facility] Patient discharged. Outpatient 05/22/2020 05:14:00 PM EDT [facility] Emergency Attender: ALEC CALDERÓN MDConsultant: ARLETTE FLORES DO 05/22/2020 04:24:00 PM EDT - 05/22/2020 07:40:00 PM EDT [facility] Patient discharged. Outpatient 04/25/2020 12:00:00 AM EDT [facility] [address] [facility] [facility] [address] 04/21/2020 12:00:00 AM EDT eCW1 ([facility]) Outpatient Referrer: CYNTHIA SIMMONS MD 04/07/2020 05:51:00 AM EDT [facility] [address] [facility] [facility] [address] 04/05/2020 12:00:00 AM EDT eCW1 ([facility]) Unknown [address] [facility] [facility] [address] 04/05/2020 12:00:00 AM EDT eCW1 ([facility]) Outpatient Attender: Thong Castañeda MD [facility] Internal Med at [facility] 03/31/2020 09:05:00 AM EDT [facility] ([facility] Unknown [address] [facility] [address] 03/31/2020 12:00:00 AM EDT eCW1 ([facility]) Thong Castañeda MD: [address], [place] [address], Ph. Attender: Thong Castañeda MD [facility] - Main Schedule 03/31/2020 12:00:00 AM EDT ROBERTO ([facility]) Unknown [address] [facility] [address] 03/30/2020 12:00:00 AM EDT eCW1 ([facility] Outpatient [address] [facility] [address] 03/28/2020 12:00:00 AM EDT eCW1 ([facility]) Unknown [address] [facility] [address] 03/28/2020 12:00:00 AM EDT eCW1 ([facility]) Unknown [address] [facility] [place] [address] 03/25/2020 12:00:00 AM EDT eCW1 ([facility] [place]) Unknown [address] [facility] [place] [address] 03/24/2020 12:00:00 AM EDT eCW1 ([facility]) Outpatient Attender: LAUREN KOHLER MDReferrer: CYNTHIA Thomas [id number] 03/22/2020 12:00:00 AM EDT - 03/22/2020 10:38:52 AM EDT Other specified diseases of pancreas [facility] Other specified diseases of pancreas [facility] [address] [facility] [place] [address] 03/01/2020 12:00:00 AM EDT eCW1 ([facility] Outpatient Attender: RAMAKRISHNA CARNES [id number] 02/26/2020 12:00 :00 AM EDT [facility] Outpatient Attender: RAMAKRISHNA CARNES [id number] 0 02/23/2020 12:00:00 AM EDT Gastroparesis [facility] Gastroparesis [facility] [address] [place] [address], [place] [address] 02/19/2020 12:00:00 AM EDT eCW1 ([facility]) [address] [address] 02/18/2020 12:00:00 AM EDT eCW1 ([facility]) Outpatient Attender: RAMAKRISHNA CARNES [id number] 0 02/10/2020 12:00:00 AM EDT - 02/10/2020 01:41:27 PM EDT Adult failure to thrive [facility] Adult failure to thrive [address] [address] 02/08/2020 12:00:00 AM EDT eCW1 ([facility] [address] [address] 02/04/2020 12:00:00 AM EDT eCW1 ([facility] [address] [address] 02/04/2020 12:00:00 AM EDT eCW1 ([facility] [address] [address] 01/29/2020 12:00:00 AM EDT eCW1 ([facility] [address] [address] 01/28/2020 12:00:00 AM EDT eCW1 ([facility]) [address] [address] 01/21/2020 12:00:00 AM EDT eCW1 ([facility] [address] [address] 01/20/2020 12:00:00 AM EDT eCW1 ([facility] [address] [address] 01/20/2020 12:00:00 AM EDT eCW1 ([facility]) [facility] [address] [place] [address], [place] [address] 01/18/2020 12:00:00 AM EDT eCW1 ([facility]) [facility] [address] [place] [address], [place] [address] 01/18/2020 12:00:00 AM EDT eCW1 ([facility] [place]) Outpatient Referrer: CYNTHIA SIMMONS MD 01/13/2020 05:17:00 AM EDT [facility] [address] [address] 01/12/2020 12:00:00 AM EDT eCW1 ([facility] [place]) [address] [address] 01/11/2020 12:00:00 AM EDT eCW1 ([facility]) [address] [address] 01/07/2020 12:00:00 AM EDT eCW1 ([facility]) [address] [address] 01/05/2020 12:00:00 AM EDT eCW1 ([facility]) [address] [address] 01/05/2020 12:00:00 AM EDT eCW1 ([facility]) [address] [address] 01/04/2020 12:00:00 AM EDT eCW1 ([facility]) [address] [address] 01/04/2020 12:00:00 AM EDT eCW1 ([facility]) [address] [address] 01/04/2020 12:00:00 AM EDT eCW1 ([facility]) [facility] [place] [address] [facility] [facility] [address] 12/23/2019 12:00:00 AM EST eCW1 ([facility]) [facility] [place] [address] [facility] [facility] [address] 11/30/2019 12:00:00 AM EST eCW1 ([facility]) [facility] [place] [address] [facility] [facility] [address] 11/25/2019 12:00:00 AM EST eCW1 ([facility]) [facility] [place] [address] [facility] [facility] [address] 11/24/2019 12:00:00 AM EST eCW1 ([facility]) Outpatient Referrer: CYNTHIA SIMMONS MD 11/16/2019 01:29:00 PM [facility] Outpatient Attender: RAMAKRISHNA CARNES [id number] 0 11/16/2019 12:00:00 AM EST - 11/16/2019 02:57:30 PM [facility] [address] [facility] [facility] [address] 11/16/2019 12:00:00 AM EST eCW1 ([facility]) Outpatient Attender: Michelle Murray 11/16/2019 12:00:00 AM [facility] Outpatient Attender: RAMAKRISHNA CARNES [id number] 11/11/2019 12:00 :00 AM [facility] Outpatient Attender: LAUREN KOHLER MD 11/04/2019 12:00:00 AM [facility] Outpatient Attender: ENRIQUETA NORIEGA MDReferrer: ENRIQUETA NORIEGA MD 10/29/2019 12:00:00 AM [facility] Outpatient 10/27/2019 11:41:00 AM [facility] Emergency Attender: Tawanda SIMMONS-CConsultant: ARLETTE JAUREGUI DO 10/27/2019 11:19:00 AM EST - 10/27/2019 06:07:00 PM [facility] Patient discharged. Inpatient Attender: RAMAKRISHNA CARNES 2886 44Attender: ENRIQUETA NORIEGA MDAttender: Edward Moreno MDAttender: LISS HALL MDAdmitter: Edward Moreno MDReferrer: PROVIDER SYSTEM INConsultant: RAMAKRISHNA CARNES [id number]: Edward Moreno MD [id number] 10/27/2019 12:00:00 AM EST - 11/02/2019 01:15:00 PM EST Unspecified abdominal pain [facility] Unspecified abdominal pain Patient discharged. [address] [address] 10/27/2019 12:00:00 AM EST eCW1 ([facility]) Outpatient Attender: RAMAKRISHNA CARNES [id number] 10/23/2019 12:00 :[address] [address] 10/22/2019 12:00:00 AM EST eCW1 ([facility]) [address] [address] 10/19/2019 12:00:00 AM EST eCW1 ([facility]) [address] [place] [address] 10/16/2019 12:00:00 AM EST eCW1 ([facility]) [address] [address] 10/16/2019 12:00:00 AM EST eCW1 ([facility]) [address] [address] 10/12/2019 12:00:00 AM EST eCW1 ([facility]) Outpatient Attender: RAMAKRISHNA CARNES [id number] 1 12/06/2018 12:00:00 AM EST - 10/05/2019 02:09:38 PM EST Bariatric surgery status [facility] Bariatric surgery status Outpatient Attender: TANVI SHIPLEY [id number] [id number] 12:00:00 AM EST - 10/05/2019 02:09:54 PM [facility] Outpatient Attender: CIRO SERRANOeferrer: RAMAKRISHNA OCAMPO [id number] 10/05/2019 12:00:00 AM EST Dehydration [facility] Dehydration [facility] [address] [facility] [facility] [address] 10/05/2019 12:00:00 AM EST eCW1 ([facility]) Emergency Attender: Mich Torres MDAttender: Raymundo Thomas 09/27/2019 06:31:00 AM EST - 09/27/2019 04:20:00 PM EST RAPID HEART BEAT [facility] RAPID HEART BEAT Patient discharged. Inpatient Attender: Yarelis Anton r: RAMAKRISHNA CARNES [id number]: XIAO SAWYER MDAttender: HOUSTON CHAIDEZ MDAttender: Irene Block MDAdmitter: XIAO SAWYER MDReferrer: [place] CHAIDEZ MDConsultant: JOHNATHON SCHAFER MDConsultant: HOUSTON CHAIDEZ MD [id number] 09/27/2019 12:00:00 A EST - 10/01/2019 03:09:00 PM EST Upper GI bleed, s/p gastric bypass with j-tube placement 3 weeks ago, pancreatitis. [facility] Upper GI bleed, s/p gastric bypass with j-tube placement 3 weeks ago, pancreatitis. Patient discharged. 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 Medications Medication Brand Name Start Date Product Form Dose Route Admi nistrative Instructions Pharmacy Instructions Status Indications Reaction Description Data Source(s) 0.5 mg 10/28/2020 12:00:00 AM EST tablet 10 TAKE 1 TABLET UNDER THE TONGUE TWO TIMES A DAY NEEDED FOR ANXIETY MAXIMUM DAILY DOSE = 2 TAKE 1 TABLET UNDER THE TONGUE TWO TIMES A DAY NEEDED FOR ANXIETY MAXIMUM DAILY DOSE = 2 SOLD: 10/29/2020 [facility] Promethazine Hydrochloride 25 MG Oral Tablet PROMETHAZINE HC L 10/28/2020 12:00:00 AM EST tablet 20 TAKE ONE TABLET BY MOUTH EVERY 6 HOURS NEEDED FOR NAUSEA AND VOMITING MAY BE DISSOLVED IN SMALL AMOUNT OF WATER AND ADMINISTERED VIA J TUBE TAKE ONE TABLET BY MOUTH EVERY 6 HOURS A S NEEDED FOR NAUSEA AND VOMITING MAY BE DISSOLVED IN SMALL AMOUNT OF WATER AND ADMINISTERED VIA J TUBE SOLD: 10/29/2020 [facility] Amoxicillin 80 MG/ML / Clavulanate 11.4 MG/ML Oral Rani pension Amoxicillin/Clavulanate Potassium 10/09/2020 12:00:00 AM EST active MEDENT ([facility]) Zolpidem tartrate 10 MG Oral Tablet Zolpidem Tartrate 10 MG Zolpidem Tartrate 10 MG 08/25/2020 12:00:00 AM EST 1.0 {tablet_at_bedtime_as_needed} active Zolpidem Tartrate 10 MG eCW1 ([facility]) Zolpidem tartrate 10 MG Oral Tablet Zolpidem Tartrate 10 MG Zolpidem Tartrate 10 MG 08/25/2020 12:00:00 AM EST 1.0 {tablet_at_bedtime_as_needed} active Zolpidem Tartrate 10 MG [facility] ([facility]) Fluoxetine 4 MG/ML Oral Solution FLUoxetine HCl 20 MG/ 5ML FLUoxetine HCl 20 MG/5ML 08/25/2020 12:00:00 AM EST 5.0 {ml} active FLUoxetine HCl 20 MG/5ML eCW1 ([facility]) Fluoxetine 4 MG/ML Oral Solution FLUoxetine HCl 20 MG/ 5ML FLUoxetine HCl 20 MG/5ML 08/25/2020 12:00:00 AM EST 5.0 {ml} active FLUoxetine HCl 20 MG/5ML eCW1 ([facility]) Fluoxetine 4 MG/ML Oral Solution FLUoxetine HCl 20 MG/ 5ML FLUoxetine HCl 20 MG/5ML 08/25/2020 12:00:00 AM EST 5.0 {ml} active FLUoxetine HCl 20 MG/5ML eCW1 ([facility]) Fluoxetine 4 MG/ML Oral Solution FLUoxetine HCl 20 MG/ 5ML FLUoxetine HCl 20 MG/5ML 08/25/2020 12:00:00 AM EST 5.0 {ml} active FLUoxetine HCl 20 MG/5ML eCW1 ([facility]) Zolpidem tartrate 10 MG Oral Tablet Zolpidem Tartrate 10 MG Zolpidem Tartrate 10 MG 08/25/2020 12:00:00 AM EST 1.0 {tablet_at_bedtime_as_needed} active Zolpidem Tartrate 10 MG eCW1 ([facility]) Fluoxetine 4 MG/ML Oral Solution FLUoxetine HCl 20 MG/ 5ML FLUoxetine HCl 20 MG/5ML 08/25/2020 12:00:00 AM EST 5.0 {ml} active FLUoxetine HCl 20 MG/5ML eCW1 ([facility]) Zolpidem tartrate 10 MG Oral Tablet Zolpidem Tartrate 10 MG Zolpidem Tartrate 10 MG 08/25/2020 12:00:00 AM EST 1.0 {tablet_at_bedtime_as_needed} active Zolpidem Tartrate 10 MG eCW1 ([facility]) Zolpidem tartrate 10 MG Oral Tablet Zolpidem Tartrate 10 MG Zolpidem Tartrate 10 MG 08/25/2020 12:00:00 AM EST 1.0 {tablet_at_bedtime_as_needed} active Zolpidem Tartrate 10 MG eCW1 ([facility]) Levetiracetam 500 MG Oral Tablet levETIRAcetam (KEPPRA ) 500 mg tablet levETIRAcetam (KEPPRA) 500 mg tablet 08/04/2020 12:00:00 AM EDT 500 m g oral active Take 1 tablet (500 mg total) by mouth 2 (two) times a day. [facility] 10 mg 07/07/2020 12:00:00 AM EDT tablet 30 TAKE ONE TABLET BY MOUTH AT BEDTIME , MAXIMUM DAILY DOSE = 1 TABLET TAKE ONE TABLET BY MOUTH AT BEDTIME , MAXIMUM DAILY DOSE = 1 TABLET SOLD: 07/07/2020 [facility] 20 mg 06/30/2020 12:00:00 AM EDT capsule 90 TAKE ONE CAPSULE BY MOUTH EVERY DAY TAKE ONE CAPSULE BY MOUTH EVERY DAY SOLD: 07/07/2020 [facility] [facility] Zolpidem tartrate 5 MG Oral Tablet Zolpidem Tartrate 5 MG Zolpidem Tartrate 5 MG 04/21/2020 12:00:00 AM EDT 1.5 {tablet_at_bedtime} active Zolpidem Tartrate 5 MG eCW1 ([facility]) Zolpidem tartrate 5 MG Oral Tablet Zolpidem Tartrate 5 MG Zolpidem Tartrate 5 MG 04/21/2020 12:00:00 AM EDT 1.5 {tablet_at_bedtime} active Zolpidem Tartrate 5 MG eCW1 ([facility]) Zolpidem tartrate 5 MG Oral Tablet Zolpidem Tartrate 5 MG Zolpidem Tartrate 5 MG 04/21/2020 12:00:00 AM EDT 1.5 {tablet_at_bedtime} active Zolpidem Tartrate 5 MG eCW1 ([facility]) Amylases 80405 UNT / Endopeptidases 9500 UNT / Lipase 3000 UNT Delayed Release Oral Capsule Pancrelipase (Hzs-[id number]-Zqvh) 7650-1642 UNIT Oral Capsule Delayed Release Particles (Creon) Pancrelipase (Wxn-[id number]-Auut) 8219-5297 U NIT Oral Capsule Delayed Release Particles (Creon) 04/07/2020 12:00:00 AM EDT Oral active Pancreatic insufficiency Take 1 capsule by mouth Three times daily before [facility] Pancreatic insufficiency Zolpidem tartrate 10 MG Oral Tablet Zolpidem Tartrate 10 MG Zolpidem Tartrate 10 MG 03/28/2020 12:00:00 AM EDT 1.0 {tablet_at_bedtime_as_needed} active Zolpidem Tartrate 10 MG eCW1 ([facility]) [facility] [place]DURABLE MEDICAL EQUIPMENT SEE SIG) XX [facility] 97 [phone] 03/28/2020 12:00:00 AM EDT act lucia Jejunostomy tube presentChronic narcotic useOn total parenteral nutrition (TPN)History of Nadege-en-Y gastric bypassAnticoagulatedDietary counseling and surveillanceBody mass index (BMI) 22.0-22.9, adultFunctional diarrheaFailure to thrive in adultStatus post bariatric surgery Use as directed. Please draw the following labs weekly: CMP, Mg, Phos, CBC and diff, prealbumin. And a monthly triglyceride. Thank you. 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 Status post bariatric surgery Zolpidem tartrate 10 MG Oral Tablet Zolpidem Tartrate 10 MG Zolpidem Tartrate 10 MG 03/28/2020 12:00:00 AM EDT 1.0 {tablet_at_bedtime_as_needed} active Zolpidem Tartrate 10 MG eCW1 ([facility]) Zolpidem tartrate 10 MG Oral Tablet Zolpidem Tartrate 10 MG Zolpidem Tartrate 10 MG 03/28/2020 12:00:00 AM EDT 1.0 {tablet_at_bedtime_as_needed} active Zolpidem Tartrate 10 MG eCW1 ([facility]) Zolpidem tartrate 10 MG Oral Tablet Zolpidem Tartrate 10 MG Zolpidem Tartrate 10 MG 03/28/2020 12:00:00 AM EDT 1.0 {tablet_at_bedtime_as_needed} active Zolpidem Tartrate 10 MG eCW1 ([facility]) Zolpidem tartrate 10 MG Oral Tablet Zolpidem Tartrate 10 MG Zolpidem Tartrate 10 MG 03/28/2020 12:00:00 AM EDT 1.0 {tablet_at_bedtime_as_needed} active Zolpidem Tartrate 10 MG eCW1 ([facility]) Zolpidem tartrate 10 MG Oral Tablet Zolpidem Tartrate 10 MG Zolpidem Tartrate 10 MG 03/28/2020 12:00:00 AM EDT 1.0 {tablet_at_bedtime_as_needed} active Zolpidem Tartrate 10 MG eCW1 ([facility]) Oxycodone Hydrochloride 5 MG Oral Tablet Oxycodone HCl 5 MG Oxycodone HCl 5 MG 03/25/2020 12:00:00 AM EDT active Oxycodone HCl 5 MG eCW1 ([facility]) Oxycodone Hydrochloride 5 MG Oral Tablet Oxycodone HCl 5 MG Oxycodone HCl 5 MG 03/25/2020 12:00:00 AM EDT active Oxycodone HCl 5 MG eCW1 ([facility]) DiphenhydrAMINE HCl 50 MG/ML DiphenhydrAMINE HCl 50 MG/ML 12:00:00 AM EDT active DiphenhydrAMINE H Cl 50 MG/ML eCW1 ([facility]) 0.8 ML Enoxaparin sodium 100 MG/ML Prefi lled Syringe [Lovenox] Lovenox 80 MG/0.8ML Lovenox 80 MG/0.8ML 03/24/2020 12:00:00 AM EDT 0.7 {ml} active Lovenox 80 MG/0.8ML eCW1 ([facility]) 200 ACTUAT Albuterol 0.09 MG/ACTUAT Mete red Dose Inhaler [Ventolin] Ventolin HFA 108 (90 Base) MCG/ACT Ventolin HFA 108 (90 Base) MCG/ACT 03/24/2020 12:00:00 AM EDT 1.0 {puff_as_needed} active Donovan tolin HFA 108 (90 Base) MCG/ACT eCW1 ([facility]) Acetaminophen 500 MG Oral Tablet Acetaminophen 500 MG 2019 12:00:00 AM EDT 1.0 {tablet_as_needed} active A cetaminophen 500 MG eCW1 ([facility]) Heparin Lock Flush 100 UNIT/ML UNK 03/24/2020 12:00:00 AM EDT active Heparin Lock Flush 100 UNIT/ML eCW1 ([facility]) DiphenhydrAMINE HCl 50 MG/ML DiphenhydrAMINE HCl 50 MG/ML 12:00:00 AM EDT active DiphenhydrAMINE H Cl 50 MG/ML eCW1 ([facility]) DiphenhydrAMINE HCl 50 MG/ML DiphenhydrAMINE HCl 50 MG/ML 12:00:00 AM EDT active DiphenhydrAMINE H Cl 50 MG/ML eCW1 ([facility]) 1 ML Enoxaparin sodium 100 MG/ML Prefilled Syringe [Lo venox] Lovenox 100 MG/ML Lovenox 100 MG/ML 03/24/2020 12:00:00 AM EDT active Lovenox 100 MG/ML eCW1 ([facility]) alpha-Tocopherol Acetate 1 UNT/ML / Asco rbic Acid 20 MG/ML / Biotin 0.006 MG/ML / Cholecalciferol 20 UNT/ML / dexpanthenol 1.5 MG/ML / Folic Acid 0.06 MG/ML / Niacinamide 4 MG/ML / Pyridoxine Hydrochloride 0.6 MG/ML / retinyl palmitate 330 UNT/ML / Ribofl Infuvite Adult - Infuvite Adult - 03/24/2020 12:00:00 AM EDT active Infuvite Adult - eCW1 ([facility]) 200 ACTUAT Albuterol 0.09 MG/ACTUAT Mete red Dose Inhaler [Ventolin] Ventolin HFA 108 (90 Base) MCG/ACT Ventolin HFA 108 (90 Base) MCG/ACT 03/24/2020 12:00:00 AM EDT 1.0 {puff_as_needed} active Donovan tolin HFA 108 (90 Base) MCG/ACT eCW1 ([facility]) alpha-Tocopherol Acetate 1 UNT/ML / Asco rbic Acid 20 MG/ML / Biotin 0.006 MG/ML / Cholecalciferol 20 UNT/ML / dexpanthenol 1.5 MG/ML / Folic Acid 0.06 MG/ML / Niacinamide 4 MG/ML / Pyridoxine Hydrochloride 0.6 MG/ML / retinyl palmitate 330 UNT/ML / Ribofl Infuvite Adult - Infuvite Adult - 03/24/2020 12:00:00 AM EDT active Infuvite Adult - eCW1 ([facility]) DiphenhydrAMINE HCl 50 MG/ML DiphenhydrAMINE HCl 50 MG/ML 12:00:00 AM EDT active DiphenhydrAMINE H Cl 50 MG/ML eCW1 ([facility]) DiphenhydrAMINE HCl 50 MG/ML DiphenhydrAMINE HCl 50 MG/ML 12:00:00 AM EDT active DiphenhydrAMINE H Cl 50 MG/ML eCW1 ([facility]) 200 ACTUAT Albuterol 0.09 MG/ACTUAT Mete red Dose Inhaler [Ventolin] Ventolin HFA 108 (90 Base) MCG/ACT Ventolin HFA 108 (90 Base) MCG/ACT 03/24/2020 12:00:00 AM EDT 1.0 {puff_as_needed} active Donovan tolin HFA 108 (90 Base) MCG/ACT eCW1 ([facility]) Heparin Lock Flush 100 UNIT/ML UNK 03/24/2020 12:00:00 AM EDT active Heparin Lock Flush 100 UNIT/ML eCW1 ([facility]) Heparin Lock Flush 100 UNIT/ML UNK 03/24/2020 12:00:00 AM EDT active Heparin Lock Flush 100 UNIT/ML eCW1 ([facility]) Amylases 03979 UNT / Endopeptidases 9500 UNT / Lipase 3000 UNT Delayed Release Oral Capsule [Creon] Creon [id number] UNIT Creon [id number] UNIT 03/24/2020 12:00:00 AM EDT active Creon 30 00-9500 UNIT eCW1 ([facility]) Albuterol 0.83 MG/ML Inhalant Solution Albuterol Sulfa te (2.5 MG/3ML) 0.083% Albuterol Sulfate (2.5 MG/3ML) 0.083% 03/24/2020 12:00:00 AM EDT 3.0 {ml_as_needed} active Albuterol Sulfate (2.5 MG/3ML) 0.083% eCW1 ([facility]) Heparin Lock Flush 100 UNIT/ML UNK 03/24/2020 12:00:00 AM EDT active Heparin Lock Flush 100 UNIT/ML eCW1 ([facility]) 200 ACTUAT Albuterol 0.09 MG/ACTUAT Mete red Dose Inhaler [Ventolin] Ventolin HFA 108 (90 Base) MCG/ACT Ventolin HFA 108 (90 Base) MCG/ACT 03/24/2020 12:00:00 AM EDT 1.0 {puff_as_needed} active Donovan tolin HFA 108 (90 Base) MCG/ACT eCW1 ([facility]) Acetaminophen 500 MG Oral Tablet Acetaminophen 500 MG 2019 12:00:00 AM EDT 1.0 {tablet_as_needed} active A cetaminophen 500 MG eCW1 ([facility]) Albuterol 0.83 MG/ML Inhalant Solution Albuterol Sulfa te (2.5 MG/3ML) 0.083% Albuterol Sulfate (2.5 MG/3ML) 0.083% 03/24/2020 12:00:00 AM EDT 3.0 {ml_as_needed} active Albuterol Sulfate (2.5 MG/3ML) 0.083% eCW1 ([facility]) 0.8 ML Enoxaparin sodium 100 MG/ML Prefi lled Syringe [Lovenox] Lovenox 80 MG/0.8ML Lovenox 80 MG/0.8ML 03/24/2020 12:00:00 AM EDT 0.7 {ml} active Lovenox 80 MG/0.8ML eCW1 ([facility]) Albuterol 0.83 MG/ML Inhalant Solution Albuterol Sulfa te (2.5 MG/3ML) 0.083% Albuterol Sulfate (2.5 MG/3ML) 0.083% 03/24/2020 12:00:00 AM EDT 3.0 {ml_as_needed} active Albuterol Sulfate (2.5 MG/3ML) 0.083% eCW1 ([facility]) alpha-Tocopherol Acetate 1 UNT/ML / Asco rbic Acid 20 MG/ML / Biotin 0.006 MG/ML / Cholecalciferol 20 UNT/ML / dexpanthenol 1.5 MG/ML / Folic Acid 0.06 MG/ML / Niacinamide 4 MG/ML / Pyridoxine Hydrochloride 0.6 MG/ML / retinyl palmitate 330 UNT/ML / Ribofl Infuvite Adult - Infuvite Adult - 03/24/2020 12:00:00 AM EDT active Infuvite Adult - eCW1 ([facility]) alpha-Tocopherol Acetate 1 UNT/ML / Asco rbic Acid 20 MG/ML / Biotin 0.006 MG/ML / Cholecalciferol 20 UNT/ML / dexpanthenol 1.5 MG/ML / Folic Acid 0.06 MG/ML / Niacinamide 4 MG/ML / Pyridoxine Hydrochloride 0.6 MG/ML / retinyl palmitate 330 UNT/ML / Ribofl Infuvite Adult - Infuvite Adult - 03/24/2020 12:00:00 AM EDT active Infuvite Adult - eCW1 ([facility]) 200 ACTUAT Albuterol 0.09 MG/ACTUAT Mete red Dose Inhaler [Ventolin] Ventolin HFA 108 (90 Base) MCG/ACT Ventolin HFA 108 (90 Base) MCG/ACT 03/24/2020 12:00:00 AM EDT 1.0 {puff_as_needed} active Donovan tolin HFA 108 (90 Base) MCG/ACT eCW1 ([facility]) 200 ACTUAT Albuterol 0.09 MG/ACTUAT Mete red Dose Inhaler [Ventolin] Ventolin HFA 108 (90 Base) MCG/ACT Ventolin HFA 108 (90 Base) MCG/ACT 03/24/2020 12:00:00 AM EDT 1.0 {puff_as_needed} active Odnovan tolin HFA 108 (90 Base) MCG/ACT eCW1 ([facility]) 0.8 ML Enoxaparin sodium 100 MG/ML Prefi lled Syringe [Lovenox] Lovenox 80 MG/0.8ML Lovenox 80 MG/0.8ML 03/24/2020 12:00:00 AM EDT 0.7 {ml} active Lovenox 80 MG/0.8ML eCW1 ([facility]) Albuterol 0.83 MG/ML Inhalant Solution Albuterol Sulfa te (2.5 MG/3ML) 0.083% Albuterol Sulfate (2.5 MG/3ML) 0.083% 03/24/2020 12:00:00 AM EDT 3.0 {ml_as_needed} active Albuterol Sulfate (2.5 MG/3ML) 0.083% eCW1 ([facility]) Amylases 52587 UNT / Endopeptidases 9500 UNT / Lipase 3000 UNT Delayed Release Oral Capsule [Creon] Creon [id number] UNIT Creon 5714-8491 UNIT 03/24/2020 12:00:00 AM EDT active Creon 30 00-9500 UNIT eCW1 ([facility]) alpha-Tocopherol Acetate 1 UNT/ML / Asco rbic Acid 20 MG/ML / Biotin 0.006 MG/ML / Cholecalciferol 20 UNT/ML / dexpanthenol 1.5 MG/ML / Folic Acid 0.06 MG/ML / Niacinamide 4 MG/ML / Pyridoxine Hydrochloride 0.6 MG/ML / retinyl palmitate 330 UNT/ML / Ribofl Infuvite Adult - Infuvite Adult - 03/24/2020 12:00:00 AM EDT active Infuvite Adult - eCW1 ([facility]) 200 ACTUAT Albuterol 0.09 MG/ACTUAT Mete red Dose Inhaler [Ventolin] Ventolin HFA 108 (90 Base) MCG/ACT Ventolin HFA 108 (90 Base) MCG/ACT 03/24/2020 12:00:00 AM EDT 1.0 {puff_as_needed} active Donovan tolin HFA 108 (90 Base) MCG/ACT eCW1 ([facility]) Heparin Lock Flush 100 UNIT/ML UNK 03/24/2020 12:00:00 AM EDT active Heparin Lock Flush 100 UNIT/ML eCW1 ([facility]) alpha-Tocopherol Acetate 1 UNT/ML / Asco rbic Acid 20 MG/ML / Biotin 0.006 MG/ML / Cholecalciferol 20 UNT/ML / dexpanthenol 1.5 MG/ML / Folic Acid 0.06 MG/ML / Niacinamide 4 MG/ML / Pyridoxine Hydrochloride 0.6 MG/ML / retinyl palmitate 330 UNT/ML / Ribofl Infuvite Adult - Infuvite Adult - 03/24/2020 12:00:00 AM EDT active Infuvite Adult - eCW1 ([facility]) Acetaminophen 500 MG Oral Tablet Acetaminophen 500 MG 2019 12:00:00 AM EDT 1.0 {tablet_as_needed} active A cetaminophen 500 MG eCW1 ([facility]) Albuterol 0.83 MG/ML Inhalant Solution Albuterol Sulfa te (2.5 MG/3ML) 0.083% Albuterol Sulfate (2.5 MG/3ML) 0.083% 03/24/2020 12:00:00 AM EDT 3.0 {ml_as_needed} active Albuterol Sulfate (2.5 MG/3ML) 0.083% eCW1 ([facility]) Heparin Lock Flush 100 UNIT/ML UNK 03/24/2020 12:00:00 AM EDT active Heparin Lock Flush 100 UNIT/ML eCW1 ([facility]) 0.8 ML Enoxaparin sodium 100 MG/ML Prefi lled Syringe [Lovenox] Lovenox 80 MG/0.8ML Lovenox 80 MG/0.8ML 03/24/2020 12:00:00 AM EDT 0.7 {ml} active Lovenox 80 MG/0.8ML eCW1 ([facility]) Acetaminophen 500 MG Oral Tablet Acetaminophen 500 MG 2019 12:00:00 AM EDT 1.0 {tablet_as_needed} active A cetaminophen 500 MG eCW1 ([facility]) Heparin Lock Flush 100 UNIT/ML UNK 03/24/2020 12:00:00 AM EDT active Heparin Lock Flush 100 UNIT/ML eCW1 ([facility]) 0.8 ML Enoxaparin sodium 100 MG/ML Prefi lled Syringe [Lovenox] Lovenox 80 MG/0.8ML Lovenox 80 MG/0.8ML 03/24/2020 12:00:00 AM EDT 0.7 {ml} active Lovenox 80 MG/0.8ML eCW1 ([facility]) Albuterol 0.83 MG/ML Inhalant Solution Albuterol Sulfa te (2.5 MG/3ML) 0.083% Albuterol Sulfate (2.5 MG/3ML) 0.083% 03/24/2020 12:00:00 AM EDT 3.0 {ml_as_needed} active Albuterol Sulfate (2.5 MG/3ML) 0.083% eCW1 ([facility]) 1 ML Enoxaparin sodium 100 MG/ML Prefilled Syringe [Lo venox] Lovenox 100 MG/ML Lovenox 100 MG/ML 03/24/2020 12:00:00 AM EDT active Lovenox 100 MG/ML eCW1 ([facility]) Heparin Lock Flush 100 UNIT/ML UNK 03/24/2020 12:00:00 AM EDT active Heparin Lock Flush 100 UNIT/ML eCW1 ([facility]) alpha-Tocopherol Acetate 1 UNT/ML / Asco rbic Acid 20 MG/ML / Biotin 0.006 MG/ML / Cholecalciferol 20 UNT/ML / dexpanthenol 1.5 MG/ML / Folic Acid 0.06 MG/ML / Niacinamide 4 MG/ML / Pyridoxine Hydrochloride 0.6 MG/ML / retinyl palmitate 330 UNT/ML / Ribofl Infuvite Adult - Infuvite Adult - 03/24/2020 12:00:00 AM EDT active Infuvite Adult - eCW1 ([facility]) DiphenhydrAMINE HCl 50 MG/ML DiphenhydrAMINE HCl 50 MG/ML 12:00:00 AM EDT active DiphenhydrAMINE H Cl 50 MG/ML eCW1 ([facility]) Acetaminophen 500 MG Oral Tablet Acetaminophen 500 MG 2019 12:00:00 AM EDT 1.0 {tablet_as_needed} active A cetaminophen 500 MG eCW1 ([facility]) alpha-Tocopherol Acetate 1 UNT/ML / Asco rbic Acid 20 MG/ML / Biotin 0.006 MG/ML / Cholecalciferol 20 UNT/ML / dexpanthenol 1.5 MG/ML / Folic Acid 0.06 MG/ML / Niacinamide 4 MG/ML / Pyridoxine Hydrochloride 0.6 MG/ML / retinyl palmitate 330 UNT/ML / Ribofl Infuvite Adult - Infuvite Adult - 03/24/2020 12:00:00 AM EDT active Infuvite Adult - eCW1 ([facility]) DiphenhydrAMINE HCl 50 MG/ML DiphenhydrAMINE HCl 50 MG/ML 12:00:00 AM EDT active DiphenhydrAMINE H Cl 50 MG/ML eCW1 ([facility]) alpha-Tocopherol Acetate 1 UNT/ML / Asco rbic Acid 20 MG/ML / Biotin 0.006 MG/ML / Cholecalciferol 20 UNT/ML / dexpanthenol 1.5 MG/ML / Folic Acid 0.06 MG/ML / Niacinamide 4 MG/ML / Pyridoxine Hydrochloride 0.6 MG/ML / retinyl palmitate 330 UNT/ML / Ribofl Infuvite Adult - Infuvite Adult - 03/24/2020 12:00:00 AM EDT active Infuvite Adult - eCW1 ([facility]) 1 ML Enoxaparin sodium 100 MG/ML Prefilled Syringe [Lo venox] Lovenox 100 MG/ML Lovenox 100 MG/ML 03/24/2020 12:00:00 AM EDT active Lovenox 100 MG/ML eCW1 ([facility]) Amylases 05848 UNT / Endopeptidases 9500 UNT / Lipase 3000 UNT Delayed Release Oral Capsule [Creon] Creon [id number] UNIT Creon [id number] UNIT 03/24/2020 12:00:00 AM EDT active Creon 30 00-9500 UNIT eCW1 ([facility]) DiphenhydrAMINE HCl 50 MG/ML DiphenhydrAMINE HCl 50 MG/ML 12:00:00 AM EDT active DiphenhydrAMINE H Cl 50 MG/ML eCW1 ([facility]) 200 ACTUAT Albuterol 0.09 MG/ACTUAT Mete red Dose Inhaler [Ventolin] Ventolin HFA 108 (90 Base) MCG/ACT Ventolin HFA 108 (90 Base) MCG/ACT 03/24/2020 12:00:00 AM EDT 1.0 {puff_as_needed} active Donovan tolin HFA 108 (90 Base) MCG/ACT eCW1 ([facility]) 1 ML Enoxaparin sodium 100 MG/ML Prefilled Syringe [Lo venox] Lovenox 100 MG/ML Lovenox 100 MG/ML 03/24/2020 12:00:00 AM EDT active Lovenox 100 MG/ML eCW1 ([facility]) 200 ACTUAT Albuterol 0.09 MG/ACTUAT Mete red Dose Inhaler [Ventolin] Ventolin HFA 108 (90 Base) MCG/ACT Ventolin HFA 108 (90 Base) MCG/ACT 03/24/2020 12:00:00 AM EDT 1.0 {puff_as_needed} active Donovan tolin HFA 108 (90 Base) MCG/ACT eCW1 ([facility]) alpha-Tocopherol Acetate 1 UNT/ML / Asco rbic Acid 20 MG/ML / Biotin 0.006 MG/ML / Cholecalciferol 20 UNT/ML / dexpanthenol 1.5 MG/ML / Folic Acid 0.06 MG/ML / Niacinamide 4 MG/ML / Pyridoxine Hydrochloride 0.6 MG/ML / retinyl palmitate 330 UNT/ML / Ribofl Infuvite Adult - Infuvite Adult - 03/24/2020 12:00:00 AM EDT active Infuvite Adult - eCW1 ([facility]) DiphenhydrAMINE HCl 50 MG/ML DiphenhydrAMINE HCl 50 MG/ML 12:00:00 AM EDT active DiphenhydrAMINE H Cl 50 MG/ML eCW1 ([facility]) Acetaminophen 500 MG Oral Tablet Acetaminophen 500 MG 2019 12:00:00 AM EDT 1.0 {tablet_as_needed} active A cetaminophen 500 MG eCW1 ([facility]) 200 ACTUAT Albuterol 0.09 MG/ACTUAT Mete red Dose Inhaler [Ventolin] Ventolin HFA 108 (90 Base) MCG/ACT Ventolin HFA 108 (90 Base) MCG/ACT 03/24/2020 12:00:00 AM EDT 1.0 {puff_as_needed} active Donovan tolin HFA 108 (90 Base) MCG/ACT eCW1 ([facility]) Albuterol 0.83 MG/ML Inhalant Solution Albuterol Sulfa te (2.5 MG/3ML) 0.083% Albuterol Sulfate (2.5 MG/3ML) 0.083% 03/24/2020 12:00:00 AM EDT 3.0 {ml_as_needed} active Albuterol Sulfate (2.5 MG/3ML) 0.083% eCW1 ([facility]) Amylases 97392 UNT / Endopeptidases 9500 UNT / Lipase 3000 UNT Delayed Release Oral Capsule [Creon] Creon [id number] UNIT Creon [id number] UNIT 03/24/2020 12:00:00 AM EDT active Creon 30 00-9500 UNIT eCW1 ([facility]) Albuterol 0.83 MG/ML Inhalant Solution Albuterol Sulfa te (2.5 MG/3ML) 0.083% Albuterol Sulfate (2.5 MG/3ML) 0.083% 03/24/2020 12:00:00 AM EDT 3.0 {ml_as_needed} active Albuterol Sulfate (2.5 MG/3ML) 0.083% eCW1 ([facility]) Amylases 59016 UNT / Endopeptidases 9500 UNT / Lipase 3000 UNT Delayed Release Oral Capsule [Creon] Creon [id number] UNIT Creon 2392-7597 UNIT 03/24/2020 12:00:00 AM EDT active Creon 30 00-9500 UNIT eCW1 ([facility]) DiphenhydrAMINE HCl 50 MG/ML DiphenhydrAMINE HCl 50 MG/ML 12:00:00 AM EDT active DiphenhydrAMINE H Cl 50 MG/ML eCW1 ([facility]) DiphenhydrAMINE HCl 50 MG/ML DiphenhydrAMINE HCl 50 MG/ML 12:00:00 AM EDT active DiphenhydrAMINE H Cl 50 MG/ML eCW1 ([facility]) Albuterol 0.83 MG/ML Inhalant Solution Albuterol Sulfa te (2.5 MG/3ML) 0.083% Albuterol Sulfate (2.5 MG/3ML) 0.083% 03/24/2020 12:00:00 AM EDT 3.0 {ml_as_needed} active Albuterol Sulfate (2.5 MG/3ML) 0.083% eCW1 ([facility]) Heparin Lock Flush 100 UNIT/ML UNK 03/24/2020 12:00:00 AM EDT active Heparin Lock Flush 100 UNIT/ML eCW1 ([facility]) 0.8 ML Enoxaparin sodium 100 MG/ML Prefi lled Syringe [Lovenox] Lovenox 80 MG/0.8ML Lovenox 80 MG/0.8ML 03/24/2020 12:00:00 AM EDT 0.7 {ml} active Lovenox 80 MG/0.8ML eCW1 ([facility]) alpha-Tocopherol Acetate 1 UNT/ML / Asco rbic Acid 20 MG/ML / Biotin 0.006 MG/ML / Cholecalciferol 20 UNT/ML / dexpanthenol 1.5 MG/ML / Folic Acid 0.06 MG/ML / Niacinamide 4 MG/ML / Pyridoxine Hydrochloride 0.6 MG/ML / retinyl palmitate 330 UNT/ML / Ribofl Infuvite Adult - Infuvite Adult - 03/24/2020 12:00:00 AM EDT active Infuvite Adult - eCW1 ([facility]) DiphenhydrAMINE HCl 50 MG/ML DiphenhydrAMINE HCl 50 MG/ML 12:00:00 AM EDT active DiphenhydrAMINE H Cl 50 MG/ML eCW1 ([facility]) Albuterol 0.83 MG/ML Inhalant Solution Albuterol Sulfa te (2.5 MG/3ML) 0.083% Albuterol Sulfate (2.5 MG/3ML) 0.083% 03/24/2020 12:00:00 AM EDT 3.0 {ml_as_needed} active Albuterol Sulfate (2.5 MG/3ML) 0.083% eCW1 ([facility]) Amylases 36873 UNT / Endopeptidases 9500 UNT / Lipase 3000 UNT Delayed Release Oral Capsule [Creon] Creon [id number] UNIT Creon [id number] UNIT 03/24/2020 12:00:00 AM EDT active Creon 30 00-9500 UNIT eCW1 ([facility]) 0.8 ML Enoxaparin sodium 100 MG/ML Prefi lled Syringe [Lovenox] Lovenox 80 MG/0.8ML Lovenox 80 MG/0.8ML 03/24/2020 12:00:00 AM EDT 0.7 {ml} active Lovenox 80 MG/0.8ML eCW1 ([facility]) Acetaminophen 500 MG Oral Tablet Acetaminophen 500 MG 2019 12:00:00 AM EDT 1.0 {tablet_as_needed} active A cetaminophen 500 MG eCW1 ([facility]) Albuterol 0.83 MG/ML Inhalant Solution Albuterol Sulfa te (2.5 MG/3ML) 0.083% Albuterol Sulfate (2.5 MG/3ML) 0.083% 03/24/2020 12:00:00 AM EDT 3.0 {ml_as_needed} active Albuterol Sulfate (2.5 MG/3ML) 0.083% eCW1 ([facility]) Heparin Lock Flush 100 UNIT/ML UNK 03/24/2020 12:00:00 AM EDT active Heparin Lock Flush 100 UNIT/ML eCW1 ([facility]) Acetaminophen 500 MG Oral Tablet Acetaminophen 500 MG 2019 12:00:00 AM EDT 1.0 {tablet_as_needed} active A cetaminophen 500 MG eCW1 ([facility]) Albuterol 0.83 MG/ML Inhalant Solution Albuterol Sulfa te (2.5 MG/3ML) 0.083% Albuterol Sulfate (2.5 MG/3ML) 0.083% 03/24/2020 12:00:00 AM EDT 3.0 {ml_as_needed} active Albuterol Sulfate (2.5 MG/3ML) 0.083% eCW1 ([facility]) 200 ACTUAT Albuterol 0.09 MG/ACTUAT Mete red Dose Inhaler [Ventolin] Ventolin HFA 108 (90 Base) MCG/ACT Ventolin HFA 108 (90 Base) MCG/ACT 03/24/2020 12:00:00 AM EDT 1.0 {puff_as_needed} active Donovan tolin HFA 108 (90 Base) MCG/ACT eCW1 ([facility]) 200 ACTUAT Albuterol 0.09 MG/ACTUAT Mete red Dose Inhaler [Ventolin] Ventolin HFA 108 (90 Base) MCG/ACT Ventolin HFA 108 (90 Base) MCG/ACT 03/24/2020 12:00:00 AM EDT 1.0 {puff_as_needed} active Donovan tolin HFA 108 (90 Base) MCG/ACT eCW1 ([facility]) 200 ACTUAT Albuterol 0.09 MG/ACTUAT [place]e red Dose Inhaler [Ventolin] Ventolin HFA 108 (90 Base) MCG/ACT Ventolin HFA 108 (90 Base) MCG/ACT 03/24/2020 12:00:00 AM EDT 1.0 {puff_as_needed} active Donovan tolin HFA 108 (90 Base) MCG/ACT eCW1 ([facility]) alpha-Tocopherol Acetate 1 UNT/ML / Asco rbic Acid 20 MG/ML / Biotin 0.006 MG/ML / Cholecalciferol 20 UNT/ML / dexpanthenol 1.5 MG/ML / Folic Acid 0.06 MG/ML / Niacinamide 4 MG/ML / Pyridoxine Hydrochloride 0.6 MG/ML / retinyl palmitate 330 UNT/ML / Ribofl Infuvite Adult - Infuvite Adult - 03/24/2020 12:00:00 AM EDT active Infuvite Adult - eCW1 ([facility]) 200 ACTUAT Albuterol 0.09 MG/ACTUAT [place]e red Dose Inhaler [Ventolin] Ventolin HFA 108 (90 Base) MCG/ACT Ventolin HFA 108 (90 Base) MCG/ACT 03/24/2020 12:00:00 AM EDT 1.0 {puff_as_needed} active Donovan tolin HFA 108 (90 Base) MCG/ACT eCW1 ([facility]) 0.8 ML Enoxaparin sodium 100 MG/ML Prefi lled Syringe [Lovenox] Lovenox 80 MG/0.8ML Lovenox 80 MG/0.8ML 03/24/2020 12:00:00 AM EDT 0.7 {ml} active Lovenox 80 MG/0.8ML eCW1 ([facility]) Amylases 11466 UNT / Endopeptidases 9500 UNT / Lipase 3000 UNT Delayed Release Oral Capsule [Creon] Creon [id number] UNIT Creon [id number] UNIT 03/24/2020 12:00:00 AM EDT active Creon 30 [id number] UNIT eCW1 ([facility]) Albuterol 0.83 MG/ML Inhalant Solution Albuterol Sulfa te (2.5 MG/3ML) 0.083% Albuterol Sulfate (2.5 MG/3ML) 0.083% 03/24/2020 12:00:00 AM EDT 3.0 {ml_as_needed} active Albuterol Sulfate (2.5 MG/3ML) 0.083% eCW1 ([facility]) Heparin Lock Flush 100 UNIT/ML UNK 03/24/2020 12:00:00 AM EDT active Heparin Lock Flush 100 UNIT/ML eCW1 ([facility]) Heparin Lock Flush 100 UNIT/ML UNK 03/24/2020 12:00:00 AM EDT active Heparin Lock Flush 100 UNIT/ML eCW1 ([facility]) 0.8 ML Enoxaparin sodium 100 MG/ML Prefi lled Syringe [Lovenox] Lovenox 80 MG/0.8ML Lovenox 80 MG/0.8ML 03/24/2020 12:00:00 AM EDT 0.7 {ml} active Lovenox 80 MG/0.8ML eCW1 ([facility]) alpha-Tocopherol Acetate 1 UNT/ML / Asco rbic Acid 20 MG/ML / Biotin 0.006 MG/ML / Cholecalciferol 20 UNT/ML / dexpanthenol 1.5 MG/ML / Folic Acid 0.06 MG/ML / Niacinamide 4 MG/ML / Pyridoxine Hydrochloride 0.6 MG/ML / retinyl palmitate 330 UNT/ML / Ribofl Infuvite Adult - Infuvite Adult - 03/24/2020 12:00:00 AM EDT active Infuvite Adult - eCW1 ([facility]) Heparin Lock Flush 100 UNIT/ML UNK 03/24/2020 12:00:00 AM EDT active Heparin Lock Flush 100 UNIT/ML eCW1 ([facility]) 200 ACTUAT Albuterol 0.09 MG/ACTUAT [place] red Dose Inhaler [Ventolin] Ventolin HFA 108 (90 Base) MCG/ACT Ventolin HFA 108 (90 Base) MCG/ACT 03/24/2020 12:00:00 AM EDT 1.0 {puff_as_needed} active Donovan tolin HFA 108 (90 Base) MCG/ACT eCW1 ([facility]) Acetaminophen 500 MG Oral Tablet Acetaminophen 500 MG 2019 12:00:00 AM EDT 1.0 {tablet_as_needed} active A cetaminophen 500 MG eCW1 ([facility]) Albuterol 0.83 MG/ML Inhalant Solution Albuterol Sulfa te (2.5 MG/3ML) 0.083% Albuterol Sulfate (2.5 MG/3ML) 0.083% 03/24/2020 12:00:00 AM EDT 3.0 {ml_as_needed} active Albuterol Sulfate (2.5 MG/3ML) 0.083% eCW1 ([facility]) 200 ACTUAT Albuterol 0.09 MG/ACTUAT Mete red Dose Inhaler [Ventolin] Ventolin HFA 108 (90 Base) MCG/ACT Ventolin HFA 108 (90 Base) MCG/ACT 03/24/2020 12:00:00 AM EDT 1.0 {puff_as_needed} active Donovan tolin HFA 108 (90 Base) MCG/ACT eCW1 ([facility]) Acetaminophen 500 MG Oral Tablet Acetaminophen 500 MG 2019 12:00:00 AM EDT 1.0 {tablet_as_needed} active A cetaminophen 500 MG eCW1 ([facility]) alpha-Tocopherol Acetate 1 UNT/ML / Asco rbic Acid 20 MG/ML / Biotin 0.006 MG/ML / Cholecalciferol 20 UNT/ML / dexpanthenol 1.5 MG/ML / Folic Acid 0.06 MG/ML / Niacinamide 4 MG/ML / Pyridoxine Hydrochloride 0.6 MG/ML / retinyl palmitate 330 UNT/ML / Ribofl Infuvite Adult - Infuvite Adult - 03/24/2020 12:00:00 AM EDT active Infuvite Adult - eCW1 ([facility]) DiphenhydrAMINE HCl 50 MG/ML DiphenhydrAMINE HCl 50 MG/ML 12:00:00 AM EDT active DiphenhydrAMINE H Cl 50 MG/ML eCW1 ([facility]) Acetaminophen 500 MG Oral Tablet Acetaminophen 500 MG 2019 12:00:00 AM EDT 1.0 {tablet_as_needed} active A cetaminophen 500 MG eCW1 ([facility]) alpha-Tocopherol Acetate 1 UNT/ML / Asco rbic Acid 20 MG/ML / Biotin 0.006 MG/ML / Cholecalciferol 20 UNT/ML / dexpanthenol 1.5 MG/ML / Folic Acid 0.06 MG/ML / Niacinamide 4 MG/ML / Pyridoxine Hydrochloride 0.6 MG/ML / retinyl palmitate 330 UNT/ML / Ribofl Infuvite Adult - Infuvite Adult - 03/24/2020 12:00:00 AM EDT active Infuvite Adult - eCW1 ([facility]) 0.8 ML Enoxaparin sodium 100 MG/ML Prefi lled Syringe [Lovenox] Lovenox 80 MG/0.8ML Lovenox 80 MG/0.8ML 03/24/2020 12:00:00 AM EDT 0.7 {ml} active Lovenox 80 MG/0.8ML eCW1 ([facility]) Acetaminophen 500 MG Oral Tablet Acetaminophen 500 MG 2019 12:00:00 AM EDT 1.0 {tablet_as_needed} active A cetaminophen 500 MG eCW1 ([facility]) Heparin Lock Flush 100 UNIT/ML UNK 03/24/2020 12:00:00 AM EDT active Heparin Lock Flush 100 UNIT/ML eCW1 ([facility]) 1 ML Enoxaparin sodium 100 MG/ML Prefilled Syringe [Lo venox] Lovenox 100 MG/ML Lovenox 100 MG/ML 03/24/2020 12:00:00 AM EDT active Lovenox 100 MG/ML eCW1 ([facility]) DiphenhydrAMINE HCl 50 MG/ML DiphenhydrAMINE HCl 50 MG/ML 12:00:00 AM EDT active DiphenhydrAMINE H Cl 50 MG/ML eCW1 ([facility]) Heparin Lock Flush 100 UNIT/ML UNK 03/24/2020 12:00:00 AM EDT active Heparin Lock Flush 100 UNIT/ML eCW1 ([facility]) Acetaminophen 500 MG Oral Tablet Acetaminophen 500 MG 2019 12:00:00 AM EDT 1.0 {tablet_as_needed} active A cetaminophen 500 MG eCW1 ([facility]) alpha-Tocopherol Acetate 1 UNT/ML / Asco rbic Acid 20 MG/ML / Biotin 0.006 MG/ML / Cholecalciferol 20 UNT/ML / dexpanthenol 1.5 MG/ML / Folic Acid 0.06 MG/ML / Niacinamide 4 MG/ML / Pyridoxine Hydrochloride 0.6 MG/ML / retinyl palmitate 330 UNT/ML / Ribofl Infuvite Adult - Infuvite Adult - 03/24/2020 12:00:00 AM EDT active Infuvite Adult - eCW1 ([facility]) Albuterol 0.83 MG/ML Inhalant Solution Albuterol Sulfa te (2.5 MG/3ML) 0.083% Albuterol Sulfate (2.5 MG/3ML) 0.083% 03/24/2020 12:00:00 AM EDT 3.0 {ml_as_needed} active Albuterol Sulfate (2.5 MG/3ML) 0.083% eCW1 ([facility]) Diphenhydramine Hydrochloride 50 MG/ML I njectable Solution DiphenhydrAMINE HCl 50 MG/ML DiphenhydrAMINE HCl 50 MG/ML 03/24/2020 12:00:00 AM EDT active DiphenhydrAMINE HCl 50 MG/ML eCW 1 ([facility]) Diphenhydramine Hydrochloride 50 MG/ML I njectable Solution DiphenhydrAMINE HCl 50 MG/ML DiphenhydrAMINE HCl 50 MG/ML 03/24/2020 12:00:00 AM EDT active DiphenhydrAMINE HCl 50 MG/ML eCW 1 ([facility]) Albuterol 0.83 MG/ML Inhalant Solution Albuterol Sulfa te (2.5 MG/3ML) 0.083% Albuterol Sulfate (2.5 MG/3ML) 0.083% 03/24/2020 12:00:00 AM EDT 3.0 {ml_as_needed} active Albuterol Sulfate (2.5 MG/3ML) 0.083% eCW1 ([facility]) Heparin Lock Flush 100 UNIT/ML UNK 03/24/2020 12:00:00 AM EDT active Heparin Lock Flush 100 UNIT/ML eCW1 ([facility]) Acetaminophen 500 MG Oral Tablet Acetaminophen 500 MG 2019 12:00:00 AM EDT 1.0 {tablet_as_needed} active A cetaminophen 500 MG eCW1 ([facility]) Amylases 31629 UNT / Endopeptidases 9500 UNT / Lipase 3000 UNT Delayed Release Oral Capsule [Creon] Creon [id number] UNIT Creon 9400-3846 UNIT 03/24/2020 12:00:00 AM EDT active Creon 30 00-9500 UNIT eCW1 ([facility]) Acetaminophen 500 MG Oral Tablet Acetaminophen 500 MG 2019 12:00:00 AM EDT 1.0 {tablet_as_needed} active A cetaminophen 500 MG eCW1 ([facility]) Acetaminophen 500 MG Oral Tablet Acetaminophen 500 MG 2019 12:00:00 AM EDT 1.0 {tablet_as_needed} active A cetaminophen 500 MG eCW1 ([facility]) 0.8 ML Enoxaparin sodium 100 MG/ML Prefi lled Syringe [Lovenox] Lovenox 80 MG/0.8ML Lovenox 80 MG/0.8ML 03/24/2020 12:00:00 AM EDT 0.7 {ml} active Lovenox 80 MG/0.8ML eCW1 ([facility]) Relizorb Device [id number] 03/22/2020 12:00:00 AM EDT 1 { each} Does not apply completed Pancreatic insufficiency 1 each by Does not apply route once for 1 dose [facility] Pancreatic insufficiency Misc. Devices (DURABLE MEDICAL EQUIPMENT SEE SIG) XX [facility] 97 [id number] 03/15/2020 12:00:00 AM EDT act lucia Chronic narcotic useOn total parenteral nutrition (TPN)History of Nadeeg-en-Y gastric bypassAnticoagulatedDietary counseling and surveillanceBody mass index (BMI) 22.0-22.9, adultFunctional diarrheaStatus post bariatric surgeryJejunostomy tube site painFailure to thrive in adultAdult failure to thrive syndromeGastroparesis Use as directed. [employer] Peptide 1.5 Tube Feed 2.84 bottles a day or 923 ml a day. (3 bottles a day , 90 bottles a month, with 5 refills) [facility] Chronic narcotic use On total parenteral nutrition (TPN) History of Nadege-en-Y gastric bypass Anticoagulated Dietary counseling and surveillance Body mass index (BMI) 22.0-22.9, adult Functional diarrhea Status post bariatric surgery Jejunostomy tube site pain Failure to thrive in adult Adult failure to thrive syndrome Gastroparesis Misc. Devices (DURABLE MEDICAL EQUIPMENT SEE SIG) XX [facility] 97 [id number] 03/15/2020 12:00:00 AM EDT act lucia Chronic narcotic useOn total parenteral nutrition (TPN)History of Nadege-en-Y gastric bypassAnticoagulatedDietary counseling and surveillanceBody mass index (BMI) 22.0-22.9, adultFunctional diarrheaStatus post bariatric surgeryJejunostomy tube site painFailure to thrive in adultAdult failure to thrive syndromeGastroparesis Use as directed. AMT mini on e 20 fr. 5 cm #[id number] [facility] Chronic narcotic use On total parenteral nutrition (TPN) History of Nadege-en-Y gastric bypass Anticoagulated Dietary counseling and surveillance Body mass index (BMI) 22.0-22.9, adult Functional diarrhea Status post bariatric surgery Jejunostomy tube site pain Failure to thrive in adult Adult failure to thrive syndrome Gastroparesis Mis. Devices (DURABLE MEDICAL EQUIPMENT SEE SIG) XX [facility] 97 [id number] 03/02/2020 12:00:00 AM EDT act lucia Body mass index (BMI) 22.0-22.9, adultFunctional diarrheaStatus post bariatric surgeryJejunostomy tube site painFailure to thrive in adultAdult failure to thrive syndromeGastroparesis Use as directed. Enteral Feeds: Vital AF 1.2 calorie, 5 bottles per day(150/month). With 5 months of refills. [facility] Body mass index (BMI) 22.0-22.9, adult Functional diarrhea Status post bariatric surgery Jejunostomy tube site pain Failure to thrive in adult Adult failure to thrive syndrome Gastroparesis Misc. Devices (DURABLE MEDICAL EQUIPMENT SEE SIG) XX [facility] 97 [id number] 02/17/2020 12:00:00 AM EDT active Use as directed. Enteral feeds: Vital AF 1.2 calorie , 5 bottles per day. (150 per month) [facility] (DURABLE MEDICAL EQUIPMENT SEE SIG) XX [facility] 97 [id number] 02/10/2020 12:00:00 AM EDT active Use as directed. Zhane-Chaves button gastrostomy tube 6.5 cm length. [facility] Zolpidem tartrate 5 MG Oral Tablet Zolpidem Tartrate 5 MG Zolpidem Tartrate 5 MG 02/04/2020 12:00:00 AM EDT active 1 tablet at bedtime eCW1 ([facility]) Zolpidem tartrate 5 MG Oral Tablet Zolpidem Tartrate 5 MG Zolpidem Tartrate 5 MG 02/04/2020 12:00:00 AM EDT 1.0 {tablet_at_bedtime} active Zolpidem Tartrate 5 MG eCW1 ([facility]) Zolpidem tartrate 5 MG Oral Tablet Zolpidem Tartrate 5 MG Zolpidem Tartrate 5 MG 02/04/2020 12:00:00 AM EDT 1.0 {tablet_at_bedtime} active Zolpidem Tartrate 5 MG eCW1 ([facility]) Zolpidem tartrate 5 MG Oral Tablet Zolpidem Tartrate 5 MG Zolpidem Tartrate 5 MG 02/04/2020 12:00:00 AM EDT active 1 tablet at bedtime eCW1 ([facility]) Zolpidem tartrate 5 MG Oral Tablet Zolpidem Tartrate 5 MG Zolpidem Tartrate 5 MG 02/04/2020 12:00:00 AM EDT active 1 tablet at bedtime eCW1 ([facility]) Methadone Hydrochloride 5 MG Oral Tablet Methadone HCl 5 MG Oral Tablet (DOLOPHINE) Methadone HCl 5 MG Oral Tablet (DOLOPHINE) 01/28/2020 12:00:00 AM EDT active TAKE 1 T ABLET BY MOUTH TWICE DAILY . DO NOT EXCEED 2 PER 24 HOURS [facility] 0.8 ML Enoxaparin sodium 100 MG/ML Prefi lled Syringe Enoxaparin Sodium 80 MG/0.8ML Subcutaneous Solution (LOVENOX) Enoxaparin Sodium 80 MG/0.8ML Subcutaneous Solution (LOVENOX) 01/08/2020 12:00:00 AM EDT active [facility] 0.8 ML Enoxaparin sodium 100 MG/ML Prefi lled Syringe [Lovenox] Lovenox 80 MG/0.8ML Lovenox 80 MG/0.8ML 01/07/2020 12:00:00 AM EDT active 0.7 ml eCW1 ([facility]) 0.8 ML Enoxaparin sodium 100 MG/ML Prefi lled Syringe [Lovenox] Lovenox 80 MG/0.8ML Lovenox 80 MG/0.8ML 01/07/2020 12:00:00 AM EDT active 0.7 ml eCW1 ([facility]) 0.8 ML Enoxaparin sodium 100 MG/ML Prefi lled Syringe [Lovenox] Lovenox 80 MG/0.8ML Lovenox 80 MG/0.8ML 01/07/2020 12:00:00 AM EDT active 0.7 ml eCW1 ([facility]) 0.8 ML Enoxaparin sodium 100 MG/ML Prefi lled Syringe [Lovenox] Lovenox 80 MG/0.8ML Lovenox 80 MG/0.8ML 01/07/2020 12:00:00 AM EDT active 0.7 ml eCW1 ([facility]) Invanz 1 GM Invanz 1 GM 01/05/2020 12:00:00 AM EDT suspended as directed eCW1 ([facility]) Invanz 1 GM Invanz 1 GM 01/05/2020 12:00:00 AM EDT active as directed eCW1 ([facility]) Invanz 1 GM Invanz 1 GM 01/05/2020 12:00:00 AM EDT suspended as directed eCW1 ([facility]) Invanz 1 GM Invanz 1 GM 01/05/2020 12:00:00 AM EDT active as directed eCW1 ([facility]) Sodium Chloride 0.9 % Intravenous Solution 9143-5753-22 01/05/2020 12:00:00 AM EDT active [facility] Nystatin 311883 UNT/ML Topical Cream Nystatin 452061 U NIT/GM Nystatin 328830 UNIT/GM 01/04/2020 12:00:00 AM EDT active 1 application eCW1 ([facility]) Nystatin 931292 UNT/ML Topical Cream Nystatin 036717 U NIT/GM Nystatin 939494 UNIT/GM 01/04/2020 12:00:00 AM EDT 1.0 {application} active Nystatin 998598 UNIT/GM eCW1 ([facility]) Nystatin 370265 UNT/ML Topical Cream Nystatin 393468 U NIT/GM Nystatin 547270 UNIT/GM 01/04/2020 12:00:00 AM EDT suspended 1 application eCW1 ([facility]) Nystatin 822005 UNT/ML Topical Cream Nystatin 462457 U NIT/GM Nystatin 888974 UNIT/GM 01/04/2020 12:00:00 AM EDT active 1 application eCW1 ([facility]) Nystatin 492320 UNT/ML Topical Cream Nystatin 762872 U NIT/GM Nystatin 291895 UNIT/GM 01/04/2020 12:00:00 AM EDT 1.0 {application} active Nystatin 038319 UNIT/GM eCW1 ([facility]) Nystatin 383831 UNT/ML Topical Cream Nystatin 884516 U NIT/GM Nystatin 228910 UNIT/GM 01/04/2020 12:00:00 AM EDT 1.0 {application} active Nystatin 033813 UNIT/GM eCW1 ([facility]) Nystatin 321106 UNT/ML Topical Cream Nystatin 602706 U NIT/GM Nystatin 656161 UNIT/GM 01/04/2020 12:00:00 AM EDT 1.0 {application} active Nystatin 044751 UNIT/GM eCW1 ([facility]) Nystatin 116774 UNT/ML Topical Cream Nystatin 211938 U NIT/GM Nystatin 290941 UNIT/GM 01/04/2020 12:00:00 AM EDT 1.0 {application} active Nystatin 103283 UNIT/GM eCW1 ([facility]) Meropenem 1 GM Meropenem 1 GM 01/04/2020 12:00:00 AM EDT active as directed eCW1 ([facility]) Nystatin 534337 UNT/ML Topical Cream Nystatin 102448 U NIT/GM Nystatin 821361 UNIT/GM 01/04/2020 12:00:00 AM EDT 1.0 {application} active Nystatin 128084 UNIT/GM eCW1 ([facility]) Nystatin 175226 UNT/ML Topical Cream Nys tatin 475132 UNIT/GM External Cream (MYCOSTATIN) Nystatin 002309 UNIT/GM External Cream (MYCOSTATIN) 12:00:00 AM EDT active APPLY CR EAM TOPICALLY TWICE DAILY [facility] Nystatin 901868 UNT/ML Topical Cream Nystatin 097022 U NIT/GM Nystatin 041614 UNIT/GM 01/04/2020 12:00:00 AM EDT 1.0 {application} active Nystatin 766085 UNIT/GM eCW1 ([facility]) Nystatin 466978 UNT/ML Topical Cream Nystatin 968152 U NIT/GM Nystatin 294597 UNIT/GM 01/04/2020 12:00:00 AM EDT suspended 1 application eCW1 ([facility]) Nystatin 047496 UNT/ML Topical Cream Nystatin 377099 U NIT/GM Nystatin 862478 UNIT/GM 01/04/2020 12:00:00 AM EDT 1.0 {application} active Nystatin 439741 UNIT/GM eCW1 ([facility]) Glucagon 3 MG/DOSE UNK 11/24/2019 12:00:00 AM EST active Glucagon 3 MG/DOSE eCW1 ([facility]) Zolpidem tartrate 6.25 MG Extended Relea se Oral Tablet Zolpidem Tartrate ER 6.25 MG Zolpidem Tartrate ER 6.25 MG 11/24/2019 12:00:00 AM EST active 1 tablet eCW1 ([facility]) Glucagon 3 MG/DOSE UNK 11/24/2019 12:00:00 AM EST active as directed eCW1 ([facility]) Glucagon 3 MG/DOSE UNK 11/24/2019 12:00:00 AM EST active Glucagon 3 MG/DOSE eCW1 ([facility]) Glucagon 3 MG/DOSE UNK 11/24/2019 12:00:00 AM EST active Glucagon 3 MG/DOSE eCW1 ([facility]) Zolpidem tartrate 6.25 MG Extended Relea se Oral Tablet Zolpidem Tartrate ER 6.25 MG Zolpidem Tartrate ER 6.25 MG 11/24/2019 12:00:00 AM EST active 1 tablet at bedtime as needed eCW1 ([facility]) Glucagon 3 MG/DOSE UNK 11/24/2019 12:00:00 AM EST active Glucagon 3 MG/DOSE eCW1 ([facility]) Glucagon 3 MG/DOSE UNK 11/24/2019 12:00:00 AM EST active Glucagon 3 MG/DOSE eCW1 ([facility]) Glucagon 3 MG/DOSE UNK 11/24/2019 12:00:00 AM EST active as directed eCW1 ([facility]) Glucagon 3 MG/DOSE UNK 11/24/2019 12:00:00 AM EST active Glucagon 3 MG/DOSE eCW1 ([facility]) Glucagon 3 MG/DOSE UNK 11/24/2019 12:00:00 AM EST active Glucagon 3 MG/DOSE eCW1 ([facility]) Zolpidem tartrate 6.25 MG Extended Relea se Oral Tablet Zolpidem Tartrate ER 6.25 MG Zolpidem Tartrate ER 6.25 MG 11/24/2019 12:00:00 AM EST active 1 tablet eCW1 ([facility]) Glucagon 3 MG/DOSE UNK 11/24/2019 12:00:00 AM EST active Glucagon 3 MG/DOSE eCW1 ([facility]) Glucagon 3 MG/DOSE UNK 11/24/2019 12:00:00 AM EST active Glucagon 3 MG/DOSE eCW1 ([facility]) Glucagon 3 MG/DOSE UNK 11/24/2019 12:00:00 AM EST active Glucagon 3 MG/DOSE eCW1 ([facility]) Glucagon 3 MG/DOSE UNK 11/24/2019 12:00:00 AM EST active Glucagon 3 MG/DOSE eCW1 ([facility]) Zolpidem tartrate 6.25 MG Extended Relea se Oral Tablet Zolpidem Tartrate ER 6.25 MG Zolpidem Tartrate ER 6.25 MG 11/24/2019 12:00:00 AM EST active 1 tablet at bedtime as needed eCW1 ([facility]) Glucagon 3 MG/DOSE UNK 11/24/2019 12:00:00 AM EST active as directed eCW1 ([facility]) Glucagon 3 MG/DOSE UNK 11/24/2019 12:00:00 AM EST active as directed eCW1 ([facility]) Glucagon 3 MG/DOSE UNK 11/24/2019 12:00:00 AM EST active Glucagon 3 MG/DOSE eCW1 ([facility]) Glucagon 3 MG/DOSE UNK 11/24/2019 12:00:00 AM EST active Glucagon 3 MG/DOSE eCW1 ([facility]) Glucagon 3 MG/DOSE UNK 11/24/2019 12:00:00 AM EST active Glucagon 3 MG/DOSE eCW1 ([facility]) Zolpidem tartrate 6.25 MG Extended Relea se Oral Tablet Zolpidem Tartrate ER 6.25 MG Zolpidem Tartrate ER 6.25 MG 11/24/2019 12:00:00 AM EST active 1 tablet at bedtime as needed eCW1 ([facility]) Zolpidem tartrate 6.25 MG Extended Relea se Oral Tablet Zolpidem Tartrate ER 6.25 MG Zolpidem Tartrate ER 6.25 MG 11/24/2019 12:00:00 AM EST active 1 tablet at bedtime as needed eCW1 ([facility]) Glucagon 3 MG/DOSE UNK 11/24/2019 12:00:00 AM EST active Glucagon 3 MG/DOSE eCW1 ([facility]) Glucagon 3 MG/DOSE UNK 11/24/2019 12:00:00 AM EST active Glucagon 3 MG/DOSE eCW1 ([facility]) Glucagon 3 MG/DOSE UNK 11/24/2019 12:00:00 AM EST active as directed eCW1 ([facility]) diphenhydrAMINE HCl 50 MG/ML Injection Solution (BENADRYL) 6 [id number] 11/13/2019 12:00:00 AM EST 50 mg Given by IV active 50 mg by Given by IV route nightly [facility]. Devices (DURABLE MEDICAL EQUIPMENT SEE SIG) XX [facility] 97 [id number] 11/10/2019 12:00:00 AM EST abo rted Jejunostomy tube presentChronic narcotic useOn total parenteral nutrition (TPN)History of Nadege-en-Y gastric bypassAnticoagulatedDietary counseling and surveillanceBody mass index (BMI) 22.0-22.9, adultFunctional diarrheaFailure to thrive in adultStatus post bariatric surgery Use as directed. Please draw the following labs weekly: CMP, Mg, Phos, CBC and diff, prealbumin. And a monthly triglyceride. Thank you. 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 Status post bariatric surgery 1 ML heparin sodium, porcine 100 UNT/ML Injection heparin flush (porcine) 100 UNIT/ML injection 20 Units heparin flush (porcine) 100 UNIT/ML inje ction 20 Units 11/02/2019 12:39:15 PM EST 20 U Intracatheter acti ve 20 Units, Intracatheter, PRN, Line Care, Starting Sat11/02/19 at 1239, For 30 days [facility] Medication administered onsite alteplase (CATHFLO) injection 2 mg [id number] 11/02/2019 09:00:00 AM EST 2 mg Intracatheter completed 2 mg, Intra catheter, Once, Sat11/02/19 at 0900, For 1 dose
To be instilled by PICC team or IR nurse only for at least 30 minutesTo affected port
[facility] Medication administered onsite 1 ML heparin sodium, porcine 10 UNT/ML I njection heparin lock flush 10 UNIT/ML injection 20 Units heparin lock flush 10 UNIT/ML injection 20 Units 11/02 09:00:00 AM EST 20 U Intracatheter active 20 Units, Intracatheter, Every 12 hours, First dose on Sat11/02/19 at 0900, For 30 days
WHEN NOT IN USE - Verify blood return before use. Flush with 10 mL of Sodium Chloride 0.9 % and 2 mL Heparin 10 units/mL. Reference Policy C-34 Central Line Policy.
[facility] Medication administered onsite sodium chloride (preservative free) 0.9 % flush 10 mL 29596- [id number] 11/02/2019 09:00:00 AM EST 10 mL Intravenous active 10 mL, Intravenous, Every 12 hours, First dose on Sat11/02/19 at 0900, For 30 days
WHEN NOT IN USE - Verify blood return before use. Flush with 10 mL of Sodium Chloride 0.9 % and 2 mL Heparin 10 units/mL. Reference Policy C-34H Central Line Policy.
[facility] Medication administered onsite sodium chloride (preservative free) 0.9 % flush 10 mL 76010- 186-11/02/2019 08:45:14 AM EST 10 mL Intravenous active 10 mL, Intravenous, PRN, Line Care, Starting 11/02/19 at 0845, For 30 days
Verify blood return before use. Flush with 10 mL of Sodium Chloride 0.9 % before and after infusions or blood sampling followed-by 2 mL Heparin 10 units/mL to lock. Reference Policy C-34 Central Line Policy.
[facility] Medication administered onsite 1 ML heparin sodium, porcine 10 UNT/ML I njection heparin lock flush 10 UNIT/ML injection 20 Units heparin lock flush 10 UNIT/ML injection 20 Units 11/02 08:45:14 AM EST 20 U Intravenous active 20 Units, Intravenous, PRN, Line Care, Starting 11/02/19 at 0845, For 30 days
Verify blood return before use. Flush with 10 mL of Sodium Chloride 0.9 % before and after infusions or blood sampling followed-by 2 mL Heparin 10 units/mL to lock. Reference Policy C-34 Central Line Policy.
[facility] Medication administered onsite Loperamide Hydrochloride 2 MG Oral Capsu le Loperamide HCl 2 MG Oral Capsule (IMODIUM) Loperamide HCl 2 MG Oral Capsule (IMODIUM) 11/02/2019 12:00: 00 AM EST 2 mg Oral active Take 1 capsule b y mouth Four times daily as needed for Diarrhea [facility] pantoprazole 40 MG Delayed Release Oral Tablet Pantoprazole Sodium 40 MG Oral Tablet Delayed Release (PROTONIX) Pantoprazole Sodium 40 MG Oral Tablet De layed Release (PROTONIX) 11/02/2019 12:00:00 AM EST 40 mg Oral active Take 1 tablet by mouth Two Times Daily [facility] sodium chloride 0.9 % SOLN 50 mL with ertapenem 1 g SOLR 1,0 00 mg 11/02/2019 12:00:00 AM EST 1000 mg Intravenous active Inject 1,000 mg into the vein every 24 (twenty-four) hours [facility] Dicyclomine Hydrochloride 10 MG Oral Cap nuvia Dicyclomine HCl 10 MG Oral Capsule (BENTYL) Dicyclomine HCl 10 MG Oral Capsule (BENTYL) 11/02/2019 12:00 :00 AM EST 10 mg Oral active Take 1 capsule b y mouth Four times daily [facility] alpha-Tocopherol Acetate 1 UNT/ML / Asco rbic Acid 20 MG/ML / Biotin 0.006 MG/ML / Cholecalciferol 20 UNT/ML / dexpanthenol 1.5 MG/ML / Folic Acid 0.06 MG/ML / Niacinamide 4 MG/ML / Pyridoxine Hydrochloride 0.6 MG/ML / retinyl palmitate 330 UNT/ML / Ribofl Infuvite Adult Intravenous Injectable Infuvite Adult Intravenous Injectable 11/02/2019 12:00:00 AM EST 1 mL Intravenous active Inject 1 mL into the vein daily [facility] Ondansetron 2 MG/ML Injectable Solution Ondansetron HCl 40 MG/20ML Injection Solution (ZOFRAN) Ondansetron HCl 40 MG/20ML Injection Solution (ZOFRAN) 11/02/2019 12:00:00 AM EST 1 mL Intravenous active Inject 1 mL into the vein daily [facility] pantoprazole 4 MG/ML Injectable Solution Pantoprazole Sodium 40 MG Intravenous Solution Reconstituted (PROTONIX) Pantoprazole Sodium 40 MG Intravenous So lution Reconstituted (PROTONIX) 11/02/2019 12:00:00 AM EST 40 mg Intrave nous active Inject 40 mg into the vein daily [facility] TPN adult 11/01/2019 07:00:00 PM EST Intravenous completed Intravenous, at 161 mL/hr, Daily at 1900, First dose (after last reorder) on 11/01/19 at 1900, For 1 day
Run @ 180 mL/hr x 10 hours, 90 mL/hr x 1 hour, 45 mL/hr x 1 hour
Is patient on propofol (= 1 fat kcal/ml)? No
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 [facility] Medication administered onsite TPN adult 10/31/2019 07:00:00 PM EST Intravenous completed Intravenous, at 80 mL/hr, Daily at 1900, First dose (after last reorder) on 10/31/19 at 1900, For 1 day
Is patient on propofol (= 1 fat kcal/ml)? No
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 [facility] Medication administered onsite 0.4 ML Enoxaparin sodium 100 MG/ML Prefi lled Syringe enoxaparin sodium (LOVENOX) injection 40 mg enoxaparin sodium (LOVENOX) injection 40 mg 10/31/2019 09:00:00 AM EST 40 mg Subcutaneous active 40 mg, Subcutaneous, Daily Standard, First dose on Sat10/31/19 at 0900, For 30 days [facility] Medication administered onsite TPN adult 10/30/2019 07:00:00 PM EST Intravenous completed Intravenous, at 80 mL/hr, Daily at 1900, First dose on Sat10/30/19 at 1900, For 1 day
Is patient on propofol (= 1 fat kcal/ml)? No
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 [facility] Medication administered onsite Amylases 45838 UNT / Endopeptidases 1900 0 UNT / Lipase 6000 UNT Delayed Release Oral Capsule pancrelipase ([id number]-[id number]) (CREON) capsule 12,000 units of lipase pancrelipase (Hdd-Gddp-Ihwh) (CREON) capsule 12,000 un its of lipase 10/30/2019 05:00:00 PM EST Oral active 12,000 units of lipase, Oral, Three Times Daily-With Meals, First dose on Sat10/30/19 at 1700, For 30 days [facility] Medication administered onsite Calcium Chloride 0.001 MEQ/ML / Glucose 50 MG/ML / Potassium Chloride 0.004 MEQ/ML / Sodium Chloride 0.103 MEQ/ML / Sodium Lactate 0.028 MEQ/ML Injectable Solution dextrose 5 % in lactated ringers infusion dextrose 5 % in lactated ringers infusion 10/30/2019 01:30:00 PM EST Intravenous completed at 100 mL/hr, Intravenous, Continuous, Starting Sat10/30/19 at 1330, For 5 hours [facility] Medication administered onsite Oxycodone Hydrochloride 5 MG Oral Tablet oxyCODONE (ROXICODONE) immediate release tablet 10 mg oxyCODONE (ROXICODONE) immediate release tablet 10 mg 10/30/2019 01:16:42 PM EST 10 mg Oral active 10 mg, Oral, Every 4 hours PRN, Moderate Pain (Pain Scale Score 4-6), Starting Sat10/30/19 at 1316, For 120 hours
Oxycodone immediate release is limited to 10 mg per dose. Higher doses ( only) require Pain Service consultation and approval.
[facility] Medication administered onsite Dicyclomine Hydrochloride 10 MG Oral Capsule dicyclomi ne (BENTYL) capsule 10 mg dicyclomine (BENTYL) capsule 10 mg 10/30/2019 01:00:00 PM EST 10 mg Oral active 10 mg, Oral, Four T imes Daily Standard, First dose on Sat10/30/19 at 1300, For 30 days [facility] Medication administered onsite ertapenem (INVANZ) 1,000 mg in sodium chloride 0.9 % 50 mL I VPB 10/29/2019 04:00:00 PM EST 1000 mg Intravenous active 1,000 mg, Intravenous, Administer over 30 Minutes, Every 24 hours, First dose on Sat10/29/19 at 1600, For 10 days [facility] Medication administered onsite Calcium Chloride 0.001 MEQ/ML / Glucose 50 MG/ML / Potassium Chloride 0.004 MEQ/ML / Sodium Chloride 0.103 MEQ/ML / Sodium Lactate 0.028 MEQ/ML Injectable Solution dextrose 5 % in lactated ringers infusion dextrose 5 % in lactated ringers infusion 10/28/2019 11:15:00 PM EST Intravenous aborted at 100 mL/hr, Intravenous, Continuous, Starting Sat10/28/19 at 2315, For 15 days [facility] Medication administered onsite meropenem (MERREM) IVPB 500 mg/50 mL (premix) 3589-8122-01 10/28/2019 07:00:00 PM EST 500 mg Intravenous aborted 500 mg, Intravenous, at 100 mL/hr, Every 6 hours, First dose on Sat10/28/19 at 1900, For 7 days
Discouraged Uses: Patients receiving valproic acid derivatives for seizure disorder should not receive meropenem without modification to the antiepileptic regimen
[facility] Medication administered onsite vancomycin (VANCOCIN) 750 mg in D5W 150 mL (premix) 0338-358 [id number] 10/28/2019 06:00:00 PM EST 750 mg Intravenous aborted 750 mg, Intravenous, Administer over 60 Minutes, Every 8 hours, First dose on Sat10/28/19 at 1800, For 3 days [facility] Medication administered onsite Calcium Chloride 0.001 MEQ/ML / Glucose 50 MG/ML / Potassium Chloride 0.004 MEQ/ML / Sodium Chloride 0.103 MEQ/ML / Sodium Lactate 0.028 MEQ/ML Injectable Solution dextrose 5 % in lactated ringers infusion dextrose 5 % in lactated ringers infusion 10/28/2019 03:45:00 PM EST Intravenous aborted at 100 mL/hr, Intravenous, Continuous, Starting Sat10/28/19 at 1545, For 15 hours [facility] Medication administered onsite sodium chloride 0.9 % bolus 1,000 mL 4990-8080-03 10/28/2019 03:45: 00 PM EST 1000 mL Intravenous active 1,000 mL , Intravenous, Once, Sat10/28/19 at 1545, For 1 dose [facility] Medication administered onsite NaCl infusion 0.9 % [id number] 10/28/2019 02:00:00 PM EST Intravenous aborted at 100 mL/hr, Intrav enous, Continuous, Starting Sat10/28/19 at 1400, For 30 days [facility] Medication administered onsite potassium chloride 10 mEq in 50 mL IVPB (premix) [id number] 1 10/28/2019 11:00:00 AM EST 10 meq Intravenous completed 10 mEq, Intravenous, Once, Sat10/28/19 at 1100, For 1 dose [facility] Medication administered onsite diazePAM (VALIUM) injection 5 mg [id number] 10/28/2019 10:45:00 AM EST 5 mg Intravenous completed 5 mg, Intrave nous, Once, Sat10/28/19 at 1045, For 1 dose [facility] Medication administered onsite Fluoxetine 20 MG Oral Capsule fluoxetine (PROZAC) caps ule 20 mg fluoxetine (PROZAC) capsule 20 mg 10/28/2019 09:00:00 AM EST 20 mg Oral active 20 mg, Oral, Daily Standard, First dose on Sat10/28/19 at 0900, For 30 days [facility] Medication administered onsite multivitamin with minerals (BARIATRIC FUSION) chewable tablet 2 tablet [id number] 10/28/2019 09:00:00 AM EST 2 {tbl} Oral abort ed 2 tablet, Oral, 2 Times Daily With Meals, First dose on Sat10/28/19 at 0900, For 30 days [facility] Medication administered onsite vancomycin (VANCOCIN) in D5W infusion 1,000 mg/200 mL (premi x) [id number] 10/28/2019 09:00:00 AM EST 1000 mg Intravenous completed 1,000 mg, Intravenous, Administer over 60 Minutes, Once, Sat10/28/19 at 0900, For 1 dose [facility] Medication administered onsite sodium chloride 0.9 % bolus 1,000 mL [id number] 10/28/2019 08:15: 00 AM EST 1000 mL Intravenous completed 1,000 mL , Intravenous, Once, Sat10/28/19 at 0815, For 1 dose [facility] Medication administered onsite Amylases 86800 UNT / Endopeptidases 9500 UNT / Lipase 3000 UNT Delayed Release Oral Capsule pancrelipase (Auy-Hyok-Urzv) (CREON) 6861-5876 units capsule 3,000 units of lipase pancrelipase (Syc-Itvb-Fumn) (CREON) 300 0-9500 units capsule 3,000 units of lipase 10/28/2019 07:30:00 AM EST 1 {capsule} Oral aborted 3,000 units of lipase (1 cap nuvia), Oral, Before Meals - Three Times Daily, First dose on Sat10/28/19 at 0730, For 30 days
Patient's own medication being used for this order
[facility] Medication administered onsite iohexol (OMNIPAQUE) 300 MG/ML contrast injection 100 mL [id number] 10/28/2019 04:00:00 AM EST 100 mL Given by IV completed 100 mL, Given by IV, 1 TIME IMAGING, Sat10/28/19 at 0400, For 1 dose [facility] Medication administered onsite morphine sulfate (PF) injection 2 mg [id number] 10/28/2019 12:00: 00 AM EST 2 mg Intravenous completed 2 mg, In travenous, Once, Sat10/28/19 at 0000, For 1 dose [facility] Medication administered onsite iohexol (OMNIPAQUE) 240 MG/ML contrast 20 mL [id number] 04/2020 11:50:48 PM EST 20 mL Oral completed 20 mL, Oral, O nce PRN, Contrast, Per Protocol, Starting Sat10/27/19 at 2350, For [address] to tell RN administration time of first dose.For oral use Dilute in 500 mL liquid x1 Now per protocol. Use "Contrast dose chart" link for dosing guidelines.
[facility] Medication administered onsite iohexol (OMNIPAQUE) 240 MG/ML contrast 20 mL [id number] 04/2020 11:50:48 PM EST 20 mL Oral completed 20 mL, Oral, P RN, Contrast, Per Protocol, Starting Sat10/27/19 at 2350, For [address] Scanner prior. call or contact centre team leader to CT.For oral use Dilute in 500 mL liquid x1 patient registration specialist to CT scan - per protocol. Use "Contrast dose chart" link for dosing guidelines.
[facility] Medication administered onsite Piperacillin 3000 MG / tazobactam 375 MG Injection piperacillin-tazobactam (ZOSYN) IVPB 3.375 g (premix) piperacillin-tazobactam (ZOSYN) IVPB 3.3 75 g (premix) 10/27/2019 11:30:00 PM EST 3.375 g Intravenous abo rted 3.375 g, Intravenous, Administer over 4 Hours, Every 8 hours, First dose on Sat10/27/19 at 2330, For 3 days [facility] Medication administered onsite Misoprostol 0.2 MG Oral Tablet misoprostol (CYTOTEC) t ablet 200 mcg misoprostol (CYTOTEC) tablet 200 mcg 10/27/2019 10:00:00 PM EST 200 ug Oral active 200 mcg, Oral, Every 6 hours, First dose on Sat at 2200, For 30 days [facility] Medication administered onsite morphine sulfate (PF) injection 2 mg [id number] 10/27/2019 09:47: 21 PM EST 2 mg Intravenous aborted 2 mg, In travenous, Every 4 hours PRN, Severe Pain (Pain Scale Score 7-10), Starting Sat10/27/19 at 2147, For 3 days [facility] Medication administered onsite gabapentin 100 MG Oral Capsule gabapentin (NEURONTIN) capsule 100 mg gabapentin (NEURONTIN) capsule 100 mg 10/27/2019 09:00:00 PM EST 100 mg Oral active 100 mg, Oral, Three Times D aily Standard, First dose on Sat10/27/19 at 2100, For 30 days [facility] Medication administered onsite pantoprazole 4 MG/ML Injectable Solution pantoprazole (PROTONIX) injection 40 mg pantoprazole (PROTONIX) injection 40 mg 10/27/2019 09:00:00 PM EST 40 mg Intravenous active 40 mg, Intrav enous, 2 Times Daily, First dose on Sat10/27/19 at 2100, For 30 days
Dilute with 10 mL of 0.9% NaCl.Give IVP over 2 minutes. Flush before and after.
[facility] Medication administered onsite Sucralfate 100 MG/ML Oral Suspension suc ralfate (CARAFATE) 1 GM/10ML suspension 1 g sucralfate (CARAFATE) 1 GM/10ML suspension 1 g 10/27/2019 09:00: 00 PM EST 1 g Oral active 1 g, Oral, Before Meals & Nightly - Four Times Daily, First dose on Sat10/27/19 at 2100, For 30 days [facility] Medication administered onsite Acetaminophen 325 MG Oral Tablet acetaminophen (TYLENO L) tablet 650 mg acetaminophen (TYLENOL) tablet 650 mg 10/27/2019 08:46:40 PM EST 65 0 mg Oral active 650 mg, Oral, E very 4 hours PRN, Mild Pain (Pain Scale Score 1- 3), Starting Sat10/27/19 at 2045, For 30 days
Maximum daily dose of acetaminophen is 3,000 mg from all sources in 24 hours.
[facility] Medication administered onsite Calcium Chloride 0.001 MEQ/ML / Glucose 50 MG/ML / Potassium Chloride 0.004 MEQ/ML / Sodium Chloride 0.103 MEQ/ML / Sodium Lactate 0.028 MEQ/ML Injectable Solution dextrose 5 % in lactated ringers infusion dextrose 5 % in lactated ringers infusion 10/27/2019 08:45:00 PM EST Intravenous completed at 100 mL/hr, Intravenous, Continuous, Starting Sat10/27/19 at 2044, For 15 hours [facility] Medication administered onsite Zolpidem tartrate 5 MG Oral Tablet zolpidem (AMBIEN) t ablet 5 mg zolpidem (AMBIEN) tablet 5 mg 10/27/2019 08:43:33 PM EST 5 mg Oral active 5 mg, Oral, Nightly PRN, Sleep, Starting Sat10/27/19 at 2042, For 7 days [facility] Medication administered onsite Loperamide Hydrochloride 2 MG Oral Capsule loperamide (IMODIUM) capsule 2 mg loperamide (IMODIUM) capsule 2 mg 10/27/2019 08:41:30 PM EST 2 mg Oral active 2 mg, Oral, Four Ti mes Daily-PRN, Diarrhea, Starting Sat10/27/19 at 2040, For 14 days [facility] Medication administered onsite Hydroxyzine Hydrochloride 50 MG Oral Tablet hydrOXYzin e (ATARAX) tablet 25 mg hydrOXYzine (ATARAX) tablet 25 mg 10/27/2019 08:41:24 PM EST 25 mg Oral active 25 mg, Oral, Every 6 hours PRN, Itching, Anxiety, Starting Sat10/27/19 at 2040, For 30 days [facility] Medication administered onsite albuterol (PROVENTIL HFA;VENTOLIN HFA) inhaler 2 puff [id number] 10/27/2019 08:40:44 PM EST 2 {puff} Inhalation active 2 pu ff, Inhalation, Every 6 hours PRN, Wheezing, Shortness of Breath, Starting Sat10/27/19 at 2039, For 7 days 13 hours
Shake the inhaler well before each spray.
[facility] Medication administered onsite diphenhydrAMINE (BENADRYL) injection 50 mg [id number] 10/27/2019 08:35:37 PM EST 50 mg Intravenous active 50 m g, Intravenous, Every 6 hours PRN, Itching, Nausea, Starting Sat10/27/19 at 2034, For 30 days [facility] Medication administered onsite ondansetron (ZOFRAN) injection 4 mg [id number] 10/27/2019 08:35:2 9 PM EST 4 mg Intravenous active 4 mg, In travenous, Every 8 hours PRN, Nausea, Vomiting, Starting Sat10/27/19 at 2034, For 30 days [facility] Medication administered onsite sodium chloride 0.9 % bolus 1,000 mL [id number] 10/27/2019 08:00: 00 PM EST 1000 mL Intravenous completed 1,000 mL , Intravenous, Once, Sat10/27/19 at 1999, For 1 dose [facility] Medication administered onsite Doxycycline Monohydrate 5 MG/ML Oral [facility] Doxycycline Monohydrate 25 MG/5ML Doxycycline Monohydrate 25 MG/5ML 10/16/2019 12:00:00 AM EST active 20 ml eCW1 ([facility]) Calcium Chloride 0.0014 MEQ/ML / Potassi um Chloride 0.004 MEQ/ML / Sodium Chloride 0.103 MEQ/ML / Sodium Lactate 0.028 MEQ/ML Injectable Solution lactated ringers infusion lactated ringers infusion 10/05/2019 04:15:00 PM EST 1000 mL Intravenous active Dehydration at 1,0 00 mL/hr, Intravenous, Continuous, Starting Sat10/05/19 at 1615, For 22 hours
Total of 2000 cc (infused over 2 hours)/ rate is 1000 cc/hr
[facility] Dehydration Medication administered onsite 1 ML heparin sodium, porcine 10 UNT/ML I njection heparin lock flush 10 UNIT/ML injection 30 Units heparin lock flush 10 UNIT/ML injection 30 Units 10/05 04:11:51 PM EST 30 U Intracatheter active Dehydratio n 30 Units, Intracatheter, PRN, Line Care, Flush [place] after use today- port color is red, Starting Sat10/05/19 at 1611, For 1 day [facility] De[facility] Medication administered onsite Calcium Chloride 0.0014 MEQ/ML / Potassi um Chloride 0.004 MEQ/ML / Sodium Chloride 0.103 MEQ/ML / Sodium Lactate 0.028 MEQ/ML Injectable Solution lactated ringers infusion lactated ringers infusion 10/05/2019 02:45:00 PM EST 1000 mL/h Intravenous aborted Dehydration at 1,0 00 mL/hr, Intravenous, Continuous, Starting Sat10/05/19 at 1445, For 1 day
Total of 2000 cc (infused over 2 hours)
[facility] Dehydration Medication administered onsite Promethazine Hydrochloride 25 MG/ML Inje ctable Solution promethazine (PHENERGAN) injection 12.5 mg promethazine (PHENERGAN) injection 12.5 mg 10/05/2019 02:30:00 PM EST 12.5 mg Intravenous completed 12.5 mg, Intravenous, Once, Sat10/05/19 at 1430, For 1 dose
If ordered intravenous then must be diluted in 50 mL of sodium chloride 0.9 % and administered over 15 minutes. Do NOT give IV push.
[facility] Medication administered onsite lactated ringers bolus 2,000 mL [id number] 10/05/2019 02:30:00 PM EST 2000 mL Intravenous aborted [facility] pantoprazole 4 MG/ML Injectable Solution pantoprazole (PROTONIX) injection 40 mg pantoprazole (PROTONIX) injection 40 mg 10/05/2019 02:30:00 PM EST 40 mg Intravenous completed 40 mg, Intrav enous, Once, Sat10/05/19 at 1430, For 1 dose
Dilute with 10 mL of 0.9% NaCl.Give IVP over 2 minutes. Flush before and after.
[facility] Medication administered onsite ondansetron (ZOFRAN) injection 4 mg [id number] 10/05/2019 02:30:0 0 PM EST 4 mg Intravenous completed 4 mg, In travenous, Once, Sat10/05/19 at 1430, For 1 dose [facility] Medication administered onsite Amylases 45284 UNT / Endopeptidases 9500 UNT / Lipase 3000 UNT Delayed Release Oral Capsule Pancrelipase (Vyn-Lkky-Oupw) 7111-0080 UNIT Oral Capsule Delayed Release Particles (CREON) Pancrelipase (Suu-Qaup-Hxdm) 1842-4418 U NIT Oral Capsule Delayed Release Particles (CREON) 10/05/2019 12:00:00 AM EST Oral aborted Take 1 capsule by mouth Thre e times daily before meals [facility] Atropine Sulfate 0.025 MG / Diphenoxylat e Hydrochloride 2.5 MG Oral Tablet Diphenoxylate-Atropine 2.5-0.025 MG Oral Tablet (LOMOTIL) Diphenoxylate-Atropine 2.5-0.025 MG Oral Tablet (LOMOTIL) 10/05/2019 12:00:00 AM EST 1 {tbl } Oral aborted Take 1 tablet by mouth Four times daily as needed for Diarrhea, Max Daily Dose: 4 tablets [facility] Amylases 33868 UNT / Endopeptidases 9500 UNT / Lipase 3000 UNT Delayed Release Oral Capsule Pancrelipase (Ddr-Ezhi-Hxtk) 6115-4918 UNIT Oral Capsule Delayed Release Particles (CREON) Pancrelipase (Sot-Qifj-Ewhc) 0289-0416 U NIT Oral Capsule Delayed Release Particles (CREON) 10/05/2019 12:00:00 AM EST Oral aborted Take 1 capsule by mouth Thre e times daily before meals [facility] Ondansetron 4 MG Disintegrating Oral Tab let Ondansetron 4 MG Oral Tablet Disintegrating (ZOFRAN-ODT) Ondansetron 4 MG Oral Tablet Disintegrat ing (ZOFRAN-ODT) 10/02/2019 12:00:00 AM EST 4 mg Oral activ e Nausea Take 1 tablet by mouth every 8 (eight) hours as needed for Nausea [facility] Nausea Loperamide Hydrochloride 2 MG Oral Capsu le Loperamide HCl 2 MG Oral Capsule (IMODIUM) Loperamide HCl 2 MG Oral Capsule (IMODIUM) 10/01/2019 12:00: 00 AM EST 2 mg Oral aborted Take 1 capsule b y mouth Four times daily as needed for Diarrhea [facility] pantoprazole 40 MG Delayed Release Oral Tablet Pantoprazole Sodium 40 MG Oral Tablet Delayed Release (PROTONIX) Pantoprazole Sodium 40 MG Oral Tablet De layed Release (PROTONIX) 10/01/2019 12:00:00 AM EST 40 mg Oral aborted Take 1 tablet by mouth Two Times Daily [facility] Misoprostol 0.2 MG Oral Tablet miSOPROStol 200 MCG Ora l Tablet (CYTOTEC) miSOPROStol 200 MCG Oral Tablet (CYTOTEC) 10/01/2019 12:00:00 AM EST 200 ug Oral active Take 1 tablet by mackenzie th every 6 (six) hours [facility] Oxycodone Hydrochloride 5 MG Oral Tablet oxyCODONE (ROXICODONE) immediate release tablet 5 mg oxyCODONE (ROXICODONE) immediate release tablet 5 mg 09/30/2019 06:48:27 PM EST 5 mg Oral active 5 mg, Oral, Every 6 hours PRN, Moderate Pain (Pain Scale Score 4-6), Starting Sat09/30/19 at 1848, For 3 days
Oxycodone immediate release is limited to 10 mg per dose. Higher doses ( only) require Pain Service consultation and approval.
[facility] Medication administered onsite Oxycodone Hydrochloride 5 MG Oral Tablet oxyCODONE (ROXICODONE) immediate release tablet 10 mg oxyCODONE (ROXICODONE) immediate release tablet 10 mg 09/30/2019 06:48:23 PM EST 10 mg Oral active 10 mg, Oral, Every 6 hours PRN, Severe Pain (Pain Scale Score 7-10), Starting Sat09/30/19 at 1848, For 3 days
Oxycodone immediate release is limited to 10 mg per dose. Higher doses ([facility] only) require Pain Service consultation and approval.
[facility] Medication administered onsite Loperamide Hydrochloride 2 MG Oral Capsule loperamide (IMODIUM) capsule 2 mg loperamide (IMODIUM) capsule 2 mg 09/30/2019 01:47:41 PM EST 2 mg Oral active 2 mg, Oral, Three T imes Daily-PRN, Diarrhea, Starting Sat09/30/19 at 1347, For 14 days [facility] Medication administered onsite pantoprazole 40 MG Delayed Release Oral Tablet pantoprazole (PROTONIX) EC tablet 40 mg pantoprazole (PROTONIX) EC tablet 40 mg 09/29/2019 09:00:[address] 40 mg Oral active 40 mg, Ora l, 2 Times Daily, First dose on Sat09/29/19 at 2100, For 30 days
Do not crush or chew
[facility] Medication administered onsite Zolpidem tartrate 5 MG Oral Tablet zolpidem (AMBIEN) t ablet 5 mg zolpidem (AMBIEN) tablet 5 mg 09/29/2019 07:56:00 PM EST 5 mg Oral active 5 mg, Oral, Nightly PRN, Sleep, Starting Sat09/29/19 at 1956, For 3 days [facility] Medication administered onsite trace elements [id number] 1 mL, MVI adult 10 mL in amino acid 4.25 % with electrolytes in dextrose 5 % with calcium (CLINIMIX E 4.25/5) 2,000 mL TPN infusion 09/29/2019 07:00:00 PM EST Intravenous ab orted at 83 mL/hr, Intravenous, Daily at 1900, First dose (after last reorder) on Sat09/29/19 at 1900, For 1 day [facility] Medication administered onsite Misoprostol 0.2 MG Oral Tablet misoprostol (CYTOTEC) t ablet 200 mcg misoprostol (CYTOTEC) tablet 200 mcg 09/29/2019 12:00:00 PM EST 200 ug Oral active 200 mcg, Oral, Every 6 hours Standard (4 times per day), First dose on Sat09/29/19 at 1200, For 30 days [facility] Medication administered onsite Sucralfate 100 MG/ML Oral Suspension suc ralfate (CARAFATE) 1 GM/10ML suspension 1 g sucralfate (CARAFATE) 1 GM/10ML suspension 1 g 09/29/2019 12:00: 00 PM EST 1 g Oral active 1 g, Oral, Every 6 hours Standard (4 times per day), First dose on Sat09/29/19 at 1200, For 30 days [facility] Medication administered onsite NaCl infusion 0.9 % [id number] 09/29/2019 09:45:00 AM EST Intravenous aborted at 75 mL/hr, Intrave nous, Continuous, Starting Sat09/29/19 at 0945, For 30 days [facility] Medication administered onsite tramadol hydrochloride 50 MG Oral Tablet tramadol (ULT GRACE) tablet 50 mg tramadol (ULTRAM) tablet 50 mg 09/29/2019 09:43:51 AM EST 50 mg Oral active 50 mg, Oral, Every 6 hours PRN, Moderate Pain (Pain Scale Score 4-6), Starting Sat09/29/19 at 0943, For 3 days [facility] Medication administered onsite trace elements [id number] 1 mL, MVI adult 10 mL in amino acid 4.25 % with electrolytes in dextrose 5 % with calcium (CLINIMIX E 4.25/5) 2,000 mL TPN infusion 09/28/2019 07:00:00 PM EST Intravenous co mpleted at 83 mL/hr, Intravenous, Daily at 1900, First dose on Sat09/28/19 at 1900, For 1 day [facility] Medication administered onsite ondansetron (ZOFRAN) injection 4 mg [id number] 09/28/2019 12:00:0 0 PM EST 4 mg Intravenous active 4 mg, In travenous, Every 6 hours, First dose (after last modification) on Sat09/28/19 at 1200, For 8 days [facility] Medication administered onsite trimethobenzamide (TIGAN) injection 200 mg [id number] 09/28/2019 09:54:05 AM EST 200 mg Intramuscular active 200 mg , Intramuscular, Every 6 hours PRN, Nausea, Vomiting, Starting Sat09/28/19 at 0954, For 30 days [facility] Medication administered onsite Promethazine Hydrochloride 25 MG/ML Inje ctable Solution promethazine (PHENERGAN) injection 12.5 mg promethazine (PHENERGAN) injection 12.5 mg 09/28/2019 09:53:48 AM EST 12.5 mg Intravenous active 12.5 mg, Intravenous, Every 6 hours PRN, Nausea, Vomiting, Starting Sat09/28/19 at 0953, For 30 days
If ordered intravenous then must be diluted in 50 mL of sodium chloride 0.9 % and administered over 15 minutes. Do NOT give IV push.
[facility] Medication administered onsite Fluoxetine 20 MG Oral Capsule fluoxetine (PROZAC) caps ule 20 mg fluoxetine (PROZAC) capsule 20 mg 09/28/2019 09:00:00 AM EST 20 mg Oral active 20 mg, Oral, Daily Standard, First dose on Sat09/28/19 at 0900, For 30 days [facility] Medication administered onsite Acetaminophen 10 MG/ML Injectable Soluti on acetaminophen (OFIRMEV) infusion 1,000 mg acetaminophen (OFIRMEV) infusion 1,000 mg 09/28/2019 08:00:00 AM EST 1000 mg Intravenous completed 1,000 mg , Intravenous, Every 8 hours, First dose on Sat09/28/19 at 0800, For 1 day
Maximum daily dose of acetaminophen is 3,000 mg from all sources in 24 hours.
[facility] Medication administered onsite Calcium Chloride 0.0014 MEQ/ML / Potassi um Chloride 0.004 MEQ/ML / Sodium Chloride 0.103 MEQ/ML / Sodium Lactate 0.028 MEQ/ML Injectable Solution lactated ringers infusion lactated ringers infusion 09/28/2019 01:15:00 AM EST 100 mL/h Intravenous aborted at 100 m L/hr, Intravenous, Continuous, Starting Sat09/28/19 at 0115, For 30 days [facility] Medication administered onsite 2 ML Metoclopramide 5 MG/ML Prefilled Sy ringe metoclopramide (REGLAN) injection 10 mg metoclopramide (REGLAN) injection 10 mg 09/27/2019 10:30:[address] 10 mg Intravenous active 10 mg, I ntravenous, Every 6 hours, First dose on 09/27/19 at 2230, For 30 days [facility] Medication administered onsite Acetaminophen 10 MG/ML Injectable Soluti on acetaminophen (OFIRMEV) infusion 1,000 mg acetaminophen (OFIRMEV) infusion 1,000 mg 09/27/2019 10:15:00 PM EST 1000 mg Intravenous completed 1,000 mg , Intravenous, Once, 09/27/19 at 2215, For 1 dose
Maximum daily dose of acetaminophen is 3,000 mg from all sources in 24 hours.
Recovery [facility] Medication administered onsite Promethazine Hydrochloride 25 MG/ML Inje ctable Solution promethazine (PHENERGAN) injection 12.5 mg promethazine (PHENERGAN) injection 12.5 mg 09/27/2019 10:00:00 PM EST 12.5 mg Intravenous completed 12.5 mg, Intravenous, Once, 09/27/19 at 2200, For 1 dose, Recovery
If ordered intravenous then must be diluted in 50 mL of sodium chloride 0.9 % and administered over 15 minutes. Do NOT give IV push.
[facility] Medication administered onsite gabapentin 100 MG Oral Capsule gabapentin (NEURONTIN) capsule 100 mg gabapentin (NEURONTIN) capsule 100 mg 09/27/2019 09:00:00 PM EST 100 mg Oral active 100 mg, Oral, Three Times D aily Standard, First dose on 09/27/19 at 2100, For 30 days [facility] Medication administered onsite morphine sulfate (PF) injection 2 mg [id number] 09/27/2019 07:23: 27 PM EST 2 mg Intravenous active 2 mg, In travenous, Every 4 hours PRN, Moderate Pain (Pain Scale Score 4-6), Severe Pain (Pain Scale Score 7-10), Starting 09/27/19 at 1923, For 5 days 15 hours [facility] Medication administered onsite octreotide (SANDOSTATIN) 5 mcg/mL in sodium chloride 0.9 % 2 50 mL infusion 09/27/2019 07:00:00 PM EST 50 ug/h Intravenous aborted 50 mcg/hr (10 mL/hr), Intravenous, at 10 mL/hr, Continuous, Starting 09/27/19 at 1900, For 30 days [facility] Medication administered onsite pantoprazole (PROTONIX) 0.4 mg/mL in sodium chloride 0.9 % 2 50 mL infusion 09/27/2019 07:00:00 PM EST 8 mg/h Intravenous aborted 8 mg/hr (20 mL/hr), Intravenous, at 20 mL/hr, Continuous, Starting 12/8/19 at 1900, For 30 days
Indication: Active GI bleed [facility] Medication administered onsite ondansetron (ZOFRAN) injection 4 mg [id number] 09/27/2019 06:51:3 2 PM EST 4 mg Intravenous aborted 4 mg, In travenous, Every 8 hours PRN, Nausea, Vomiting, Starting 09/27/19 at 1851, For 30 days [facility] Medication administered onsite diphenhydrAMINE (BENADRYL) injection 25 mg [id number] 09/27/2019 06:51:14 PM EST 25 mg Intravenous active 25 m g, Intravenous, Every 6 hours PRN, Itching, Starting 09/27/19 at 1851, For 30 days
Run slow in a bag
[facility] Medication administered onsite Hydroxyzine Hydrochloride 50 MG Oral Tablet hydrOXYzin e (ATARAX) tablet 25 mg hydrOXYzine (ATARAX) tablet 25 mg 09/27/2019 06:30:15 PM EST 25 mg Oral active 25 mg, Oral, Every 6 hours PRN, Itching, Anxiety, Starting 09/27/19 at 1830, For 30 days [facility] Medication administered onsite albuterol (PROVENTIL HFA;VENTOLIN HFA) inhaler 2 puff [id number] 09/27/2019 06:30:14 PM EST 2 {puff} Inhalation active 2 pu ff, Inhalation, Every 6 hours PRN, Wheezing, Shortness of Breath, Starting 09/27/19 at 1830, For 6 days 16 hours
Shake the inhaler well before each spray.
[facility] Medication administered onsite [facility] [place]DURABLE MEDICAL EQUIPMENT SEE SIG) XX [facility] 97 [id number] 09/21/2019 12:00:00 AM EST act [place] Jejunostomy tube presentChronic narcotic useFailure to thrive in adultHistory of Nadege-en-Y gastric bypassAnticoagulated Use as directed. Start Pepta men 1.5 via J-Tube. Advance 10 ml/hr q 8 hrs to goal rate of 55 ml/hr x 24 hr. To provide 1,980 kcals and 90 grams protein. 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 Anticoagulated pantoprazole 40 MG Delayed Release Oral Tablet Pantoprazole Sodium 40 MG Oral Tablet Delayed Release (PROTONIX) Pantoprazole Sodium 40 MG Oral Tablet De layed Release (PROTONIX) 09/21/2019 12:00:00 AM EST 40 mg Oral aborted Take 1 tablet by mouth every morning [facility] Oxycodone Hydrochloride 10 MG Oral Tablet Oxycodone HC l 10 MG Oxycodone HCl 10 MG 09/14/2019 12:00:00 AM EST suspended 1 tablet as needed eCW1 ([facility]) Oxycodone Hydrochloride 5 MG Oral Tablet Oxycodone HCl 5 MG Oxycodone HCl 5 MG 09/14/2019 12:00:00 AM EST active 2 tab eCW1 ([facility]) Oxycodone Hydrochloride 5 MG Oral Tablet Oxycodone HCl 5 MG Oxycodone HCl 5 MG 09/14/2019 12:00:00 AM EST active 2 tab eCW1 ([facility]) Oxycodone Hydrochloride 10 MG Oral Tablet Oxycodone HC l 10 MG Oxycodone HCl 10 MG 09/14/2019 12:00:00 AM EST active 1 tablet as needed eCW1 ([facility]) POLYETHYLENE GLYCOL 3350 142 MG/ML Oral Solution Polyethylene Glycol 3350 Oral Packet (MIRALAX) Polyethylene Glycol 3350 Oral Packet (MIRALAX) 019 12:00:00 AM EST 17 g Oral aborted Take 1 packet by mouth daily Please substitute bottle for packets, if packets are unavailable. [facility] sennosides, LONGTERM 8.6 MG Oral Tablet Senna 8.6 MG Oral T ablet Senna 8.6 MG Oral Tablet 09/11/2019 12:00:00 AM EST 2 {tbl} Oral aborted Take 2 tablets by mouth nightly as needed [facility] Oxycodone Hydrochloride 5 MG Oral Tablet oxyCODONE HCl 5 MG Oral Tablet (ROXICODONE) oxyCODONE HCl 5 MG Oral Tablet (ROXICODONE) 09/11/2019 12:00:00 AM EST 5 mg Oral active Take 1 t ablet by mouth every 4 (four) hours as needed for up to 3 days, Max Daily Dose: 30 mg [facility] Bariatric Fusion Oral Tablet Chewable [id number] 09/11/2019 12:00 :00 AM EST 2 {tbl} Oral aborted Chew 2 tab lets by Mouth Two times daily with meals Can get this online [facility] gabapentin 100 MG Oral Capsule Gabapentin 100 MG Oral Capsule (NEURONTIN) Gabapentin 100 MG Oral Capsule (NEURONTIN) 09/11/2019 12:00:00 AM EST 100 mg Oral aborted Take 1 capsule by mo [facility] Three times daily [facility] Docusate Sodium 100 MG Oral Capsule Docu sate Sodium 100 MG Oral Capsule (COLACE) Docusate Sodium 100 MG Oral Capsule (COLACE) 09/11/2019 12:00:00 AM EST 100 mg Oral aborted Take 1 capsule by mouth Two Times Daily for 10 days [facility] TPN adult 09/09/2019 07:00:00 PM EST Intravenous completed Intravenous, at 35-141 mL/hr, Daily at 1900, First dose (after last modification) on Sat09/09/19 at 1900, For 1 day
Start rate at 141 mL/hr for 12 hours.
Decrease rate to 71 mL/hr for 1 hours.
Decrease rate to 35 mL/hr for 1 hours, then stop.

Is patient on propofol (= 1 fat kcal/ml)? No
Reason for TPN therapy: Critically ill, unable to tolerate tube feeding >4 days
Hx of gastric. Will do daily MVI/MTE.
[facility] Medication administered onsite 2 ML Metoclopramide 5 MG/ML Prefilled Sy ringe metoclopramide (REGLAN) injection 10 mg metoclopramide (REGLAN) injection 10 mg 09/09/2019 10:45:[address] 10 mg Intravenous active 10 mg, I ntravenous, Every 6 hours, First dose (after last reorder) on Sat09/09/19 at 1045, For 14 doses [facility] Medication administered onsite TPN adult 09/08/2019 07:00:00 PM EST Intravenous completed Intravenous, at 35-141 mL/hr, Daily at 1900, First dose (after last reorder) on Sat09/08/19 at 1900, For 1 day
Start rate at 141 mL/hr for 12 hours.
Decrease rate to 71 mL/hr for 1 hours.
Decrease rate to 35 mL/hr for 1 hours, then stop.

Is patient on propofol (= 1 fat kcal/ml)? No
Reason for TPN therapy: Critically ill, unable to tolerate tube feeding >4 days
Hx of gastric. Will do daily MVI/MTE.
[facility] Medication administered onsite Fluoxetine 20 MG Oral Capsule fluoxetine (PROZAC) caps ule 20 mg fluoxetine (PROZAC) capsule 20 mg 09/08/2019 03:00:00 PM EST 20 mg Oral active 20 mg, Oral, Daily Standard, First dose on Sat09/08/19 at 1500, For 30 days [facility] Medication administered onsite Hydroxyzine Hydrochloride 50 MG Oral Tablet hydrOXYzin e (ATARAX) tablet 25 mg hydrOXYzine (ATARAX) tablet 25 mg 09/08/2019 02:29:40 PM EST 25 mg Oral active 25 mg, Oral, Every 6 hours PRN, Itching, Anxiety, Starting Sat09/08/19 at 1429, For 30 days [facility] Medication administered onsite albuterol (PROVENTIL HFA;VENTOLIN HFA) inhaler 2 puff [id number] 09/08/2019 02:29:13 PM EST 2 {puff} Inhalation active 2 pu ff, Inhalation, Every 6 hours PRN, Wheezing, Shortness of Breath, Starting Sat09/08/19 at 1429, For 4 days
Shake the inhaler well before each spray.
[facility] Medication administered onsite oxyCODONE (ROXICODONE) immediate release tablet 5 mg 09/07/2019 07:15:51 AM EST 5 mg Oral active [Order 1 Start] Name: oxyCODONE (ROXICODONE) immediate release tablet 5 mg Signed Summary: 5 mg, Oral, Every 4 hours PRN, Moderate Pain (Pain Scale Score 4-6), Starting Sat09/07/19 at 0715, For 120 hours
Oxycodone immediate release is limited to 10 mg per dose. Higher doses ( only) require Pain Service consultation and approval.
[Order 1 End] [Order 2 Start] Name: oxyCODONE (ROXICODONE) immediate release tablet 10 mg Signed Summary: 10 mg, Oral, Every 4 hours PRN, Severe Pain (Pain Scale Score 7-10), Starting Sat09/07/19 at 0715, For 120 hours
Oxycodone immediate release is limited to 10 mg per dose. Higher doses ( only) require Pain Service consultation and approval.
[Order 2 End] [facility] Medication administered onsite gabapentin 100 MG Oral Capsule gabapentin (NEURONTIN) capsule 100 mg gabapentin (NEURONTIN) capsule 100 mg 09/05/2019 05:00:00 PM EST 100 mg Oral active 100 mg, Oral, Three Times D aily Standard, First dose on 09/05/19 at 1700, For 30 days [facility] Medication administered onsite Bisacodyl 10 MG Rectal Suppository bisacodyl (DULCOLAX ) suppository 10 mg bisacodyl (DULCOLAX) suppository 10 mg 09/05/2019 11:43:27 AM EST 10 mg Rectal active 10 mg, Rectal, Daily PRN, Constipation, Starting 09/05/19 at 1143, For 30 days [facility] Medication administered onsite morphine sulfate (PF) injection 2 mg [id number] 09/05/2019 10:10: 30 AM EST 2 mg Intravenous active 2 mg, In travenous, Every 2 hours PRN, Moderate Pain (Pain Scale Score 4-6), Severe Pain (Pain Scale Score 7-10), may use for breakthrough pain, Starting 09/05/19 at 1010, For 3 days [facility] Medication administered onsite pantoprazole (PROTONIX) injection 40 mg 09/04/2019 09:00:0 0 AM EST 40 mg Intravenous active [Order 1 Star t] Name: pantoprazole (PROTONIX) injection 40 mg Signed Summary: 40 mg, Intravenous, 2 Times Daily, First dose (after last modification) on Sat09/04/19 at 0900, For 10 days [Order 1 End] [ Order 2 Start] Name: pantoprazole (PROTONIX) EC tablet 40 mg Signed Summary: 40 mg, Oral, 2 Times Daily, First dose (after last modification) on Sat09/04/19 at 0900, For 10 days
Do not crush or chew
[Order 2 End] [facility] Medication administered onsite POLYETHYLENE GLYCOL 3350 142 MG/ML Oral Solution polyethylene glycol (MIRALAX) packet 17 g polyethylene glycol (MIRALAX) packet 17 g 09/04/2019 0 9:00:00 AM EST 17 g Oral active 17 g, Or al, Daily Standard, First dose on Sat09/04/19 at 0900, For 30 days
Mix in 8 ounces of water, juice or milk. Avoid use in patients who require thickened liquids due to potential increased risk for aspiration.
[facility] Medication administered onsite 2 ML Metoclopramide 5 MG/ML Prefilled Sy ringe metoclopramide (REGLAN) injection 10 mg metoclopramide (REGLAN) injection 10 mg 09/04/2019 09:00:[address] 10 mg Intravenous completed 10 mg, I ntravenous, Every 6 hours, First dose on Sat09/04/19 at 0900, For 21 doses [facility] Medication administered onsite 1 ML Ketorolac Tromethamine 15 MG/ML [place] ketorolac (TORADOL) injection 15 mg ketorolac (TORADOL) injection 15 mg 09/04/2019 09:00:00 AM EST 15 mg Intravenous completed 15 mg, Intrav enous, Every 6 hours, First dose on Sat09/04/19 at 0900, For 5 days [facility] Medication administered onsite sennosides, LONGTERM 8.6 MG Oral Tablet senna 8.6 MG 2 tablet sen na 8.6 MG 2 tablet 09/03/2019 10:00:00 PM EST 2 {tbl} Oral active 2 tablet, Oral, Nightly, First dose on Sat09/03/19 at 2200, For 30 days [facility] Medication administered onsite Simethicone 80 MG Chewable Tablet simethicone (MYLICON ) chewable tablet 80 mg simethicone (MYLICON) chewable tablet 80 mg 09/03/2019 08:07:04 PM EST 80 mg Oral active 80 mg, Oral, E very 6 hours PRN, Flatulence, Starting Sat09/03/19 at 2007, For 30 days [facility] Medication administered onsite multivitamin with minerals (BARIATRIC FUSION) chewable tablet 2 tablet [id number] 09/03/2019 06:00:00 PM EST 2 {tbl} Oral activ e 2 tablet, Oral, 2 Times Daily With Meals, First dose on Sat09/03/19 at 1800, For 30 days [facility] Medication administered onsite 1 ML heparin sodium, porcine 10 UNT/ML I njection heparin lock flush 10 UNIT/ML injection 20 Units heparin lock flush 10 UNIT/ML injection 20 Units 09/03 10:15:00 AM EST 20 U Intracatheter active 20 Units, Intracatheter, Every 12 hours, First dose on Digna 09/03/19 at 1015, For 30 days
WHEN NOT IN USE - Verify blood return before use. Flush with 10 mL of Sodium Chloride 0.9 % and 2 mL Heparin 10 units/mL. Reference Policy C-34 Central Line Policy.
[facility] Medication administered onsite sodium chloride (preservative free) 0.9 % flush 10 mL 09/03/2019 10:15:00 AM EST 10 mL Intravenous active 10 m L, Intravenous, Every 12 hours, First dose on Digna 09/03/19 at 1015, For 30 days
WHEN NOT IN USE - Verify blood return before use. Flush with 10 mL of Sodium Chloride 0.9 % and 2 mL Heparin 10 units/mL. Reference Policy [facility] Central Line Policy.
[facility] Medication administered onsite sodium chloride (preservative free) 0.9 % flush 10 mL 09/03/2019 10:06:08 AM EST 10 mL Intravenous active 10 m L, Intravenous, PRN, Line Care, Starting Digna 09/03/19 at 1006, For 30 days
Verify blood return before use. Flush with 10 mL of Sodium Chloride 0.9 % before and after infusions or blood sampling followed-by 2 mL Heparin 10 units/mL to lock. Reference Policy C-34 Central Line Policy.
[facility] Medication administered onsite 1 ML heparin sodium, porcine 10 UNT/ML I njection heparin lock flush 10 UNIT/ML injection 20 Units heparin lock flush 10 UNIT/ML injection 20 Units 09/03 10:06:08 AM EST 20 U Intravenous active 20 Units, Intravenous, PRN, Line Care, Starting Digna 09/03/19 at 1006, For 30 days
Verify blood return before use. Flush with 10 mL of Sodium Chloride 0.9 % before and after infusions or blood sampling followed-by 2 mL Heparin 10 units/mL to lock. Reference Policy C-34H Central Line Policy.
[facility] Medication administered onsite Docusate Sodium 100 MG Oral Capsule docusate sodium (C OLACE) capsule 100 mg docusate sodium (COLACE) capsule 100 mg 09/03/2019 09:30:00 AM EST 100 mg Oral active 100 mg, Oral, 2 Times Daily, First dose on Digna 09/03/19 at 0930, For 30 days [facility] Medication administered onsite Acetaminophen 325 MG Oral Tablet acetaminophen (TYLENO L) tablet 650 mg acetaminophen (TYLENOL) tablet 650 mg 09/02/2019 08:07:51 AM EST 65 0 mg Oral active 650 mg, Oral, E very 6 hours PRN, Mild Pain (Pain Scale Score 1- 3), Fever, Starting Sat09/02/19 at 0807, For 30 days
Maximum daily dose of acetaminophen is 3000 mg from all sources in 24 hours.
[facility] Medication administered onsite Zolpidem tartrate 5 MG Oral Tablet zolpidem (AMBIEN) t ablet 5 mg zolpidem (AMBIEN) tablet 5 mg 09/01/2019 10:00:00 PM EST 5 mg Oral active 5 mg, Oral, Nightly PRN, Sleep, Starting Sat09/01/19 at 2200, For 3 days [facility] Medication administered onsite 0.3 ML Enoxaparin sodium 100 MG/ML Prefi lled Syringe enoxaparin sodium (LOVENOX) injection 30 mg enoxaparin sodium (LOVENOX) injection 30 mg 09/01/2019 09:00:00 PM EST 30 mg Subcutaneous active 30 mg, Subcutaneous, Every 12 hours Standard (2 times per day), First dose on Sat09/01/19 at 2100, For 30 days
Non Patients: weight > 150 kg, CrCl > 30 mL/min. Guidelines for Lovenox:MUST wait 24 hours before starting Enoxaparin if patient has epidural catheter.D/C Enoxaparin 10-12 hours prior to removing epidural catheter.
[facility] Medication administered onsite diphenhydrAMINE (BENADRYL) injection 25 mg [id number] 09/01/2019 08:41:57 PM EST 25 mg Intravenous active 25 m g, Intravenous, Every 6 hours PRN, Itching, Nausea, Starting Sat09/01/19 at 2041, For 30 days [facility] Medication administered onsite Calcium Chloride 0.0014 MEQ/ML / Potassi um Chloride 0.004 MEQ/ML / Sodium Chloride 0.103 MEQ/ML / Sodium Lactate 0.028 MEQ/ML Injectable Solution lactated ringers infusion lactated ringers infusion 09/01/2019 03:15:00 PM EST 30 mL/h Intravenous aborted at 30 mL/hr, Intravenous, Continuous, Starting Sat09/01/19 at 1515, For 10 days [facility] Medication administered onsite ondansetron (ZOFRAN) injection 4 mg [id number] 09/01/2019 03:06:3 5 PM EST 4 mg Intravenous active 4 mg, In travenous, Every 8 hours PRN, Nausea, Vomiting, Starting Sat09/01/19 at 1506, For 30 days [facility] Medication administered onsite 72 HR Scopolamine 0.0139 MG/HR Transderm al Patch scopolamine (TRANSDERM-SCOP) patch 1.5 mg scopolamine (TRANSDERM-SCOP) patch 1.5 mg 09/01/2019 0 7:52:55 AM EST 1 {patch} Transdermal active 1 patch, Transdermal, Every 72 hours, First dose on Sat09/01/19 at 0800, For 30 days
Programmed to deliver in-vivo approximately 1 mg of scopolamine over 3 days
[facility] Medication administered onsite Ondansetron 8 MG Disintegrating Oral Tab let ondansetron (ZOFRAN-ODT) 8 MG disintegrating tablet ondansetron (ZOFRAN-ODT) 8 MG disintegrating tablet 07/03/2019 12:00:00 AM EDT 8 mg Oral aborted Take 8 mg by mouth as needed [facility] Zolpidem tartrate 6.25 MG Extended Relea se Oral Tablet zolpidem (AMBIEN CR) 6.25 MG CR tablet zolpidem (AMBIEN CR) 6.25 MG CR tablet 07/02/2019 12:00:00 A M EDT aborted TAKE 1 TABLET BY MOUTH ONCE DAILY AT BEDTIME NEEDED (MAX DAILY DOSE OF 1 TABLET). [facility] Promethazine Hydrochloride 25 MG Rectal Suppository [Phenadoz] PHENADOZ 25 MG suppository PHENADOZ 25 MG suppository 07/02/2019 12:00:00 AM EDT 25 mg aborted 25 mg every 8 (eight) hours as n eeded [facility] sodium chloride, preservative free, 0.9 % injection [id number] 05/15/2019 12:00:00 AM EDT aborted 1-2 liters IV da kristina as needed. [facility] 1 ML heparin sodium, porcine 100 UNT/ML Injection Heparin Lock Flush (HEPARIN FLUSH, PORCINE,) 100 UNIT/ML injection Heparin Lock Flush (HEPARIN FLUSH, PORCINE,) 100 UNIT/ML injection 05/15/2019 12:00:00 AM EDT aborted 5 ml IV after dose and prn [facility] Sodium Chloride Flush (NORMAL SALINE FLUSH) 0.9 % SOLN [id number] -[id number] 05/15/2019 12:00:00 AM EDT aborted 10 mls IV before and after dose and prn [facility] sodium chloride 0.9 % solution [id number] 04/30/2019 12:00:00 AM ED T 10 mL aborted 10 mLs as needed [facility] Glucagon 1 MG Injection glucagon (GLUCAGON EMERGENCY) 1 MG injection glucagon (GLUCAGON EMERGENCY) 1 MG injection 11/14/2018 12:00:00 AM EST 1 mg Subcutaneous aborted Gastroparesis Inject 1 mg into the skin as needed For low blood glucose with symptoms [facility] Gastroparesis pantoprazole 40 MG Delayed Release Oral Tablet pantoprazole (PROTONIX) 40 MG tablet pantoprazole (PROTONIX) 40 MG tablet 10/10/2018 12:00:00 AM EST 40 mg Oral aborted Take 40 mg by mouth every morning [facility] Ondansetron 2 MG/ML Injectable Solution Ondansetron HCl (ZOFRAN) 40 MG/20ML SOLN Ondansetron HCl (ZOFRAN) 40 MG/20ML SOLN 04/16/2018 12:00:00 AM EDT 4 mg Intravenous aborted Inject 4 mg into t he vein [facility] Zolpidem tartrate 12.5 MG Extended Relea se Oral Tablet zolpidem ER 12.5 mg tablet,extended release,multiphase zolpidem ER 12.5 mg tablet,extended release,multiphase completed zolpidem tartrate 12.5 MG Extended Release Oral Tablet ROBERTO ([facility]) Morphine Sulfate 15 MG Oral Tablet morphine 15 mg imme diate release tablet morphine 15 mg immediate release tablet completed morphine sulfate 15 MG Oral Tablet ROBERTO ([facility]) 0.6 ML Enoxaparin sodium 100 MG/ML Prefi lled Syringe enoxaparin 60 mg/0.6 mL subcutaneous syringe enoxaparin 60 mg/0.6 mL subcutaneous syringe completed 0.6 ML enoxaparin sodium 100 MG/ ML Prefilled Syringe ROBERTO ([facility] ) Oxycodone Hydrochloride 20 MG/ML Oral So lution oxycodone 20 mg/mL oral concentrate oxycodone 20 mg/mL oral concentrate completed oxycodone hydrochloride 20 MG/ML Oral Solution ROBERTO ([facility] ) 3 ML heparin sodium, porcine 100 UNT/ML Prefilled Syringe Heparin Lock Flush (Porcine) (PF) 100 unit/mL intravenous syringe Heparin Lock Flush (Porcine) (PF) 100 unit/mL intravenous syringe compl eted 3 ML heparin sodium, porcine 100 UNT/ML Prefilled Syringe ROBERTO ([facility] ) Oxycodone Hydrochloride 1 MG/ML Oral Solution oxycodon e 5 mg/5 mL oral solution oxycodone 5 mg/5 mL oral solution comp leted oxycodone hydrochloride 1 MG/ML Oral Solution ROBERTO ([facility]) Ondansetron 8 MG Disintegrating Oral Tab let ondansetron 8 mg disintegrating tablet ondansetron 8 mg disintegrating tablet completed ondansetron 8 MG Disintegrating Oral Tablet ROBERTO ([facility]) benzonatate 100 MG Oral Capsule benzonatate 100 mg cap nuvia benzonatate 100 mg capsule completed benzonatate 10 0 MG Oral Capsule ROBERTO ([facility] ) Fluoxetine 4 MG/ML Oral Solution fluoxetine 20 mg/5 mL (4 mg/mL) oral solution fluoxetine 20 mg/5 mL (4 mg/mL) oral solution completed fluoxetine 4 MG/ML Oral Solution ROBERTO ([facility]) Ceftriaxone 100 MG/ML Injectable Solutio n ceftriaxone 10 gram solution for injection ceftriaxone 10 gram solution for injection completed ceftriaxone 100 MG/ML Injectable Solution ROBERTO ([facility]) Prednisone 20 MG Oral Tablet prednisone 20 mg tablet prednisone 20 mg tablet completed prednisone 20 MG Oral Tablet ROBERTO ([facility]) Ceftriaxone 2000 MG Injection ceftriaxone 2 gram solut ion for injection ceftriaxone 2 gram solution for injection completed ceftriaxone 2000 MG Injection ROBERTO ([facility]) Metoclopramide 10 MG Oral Tablet metoclopramide 10 mg tablet metoclopramide 10 mg tablet completed metocloprami de 10 MG Oral Tablet ROBERTO ([facility]) pantoprazole 40 MG Delayed Release Oral Tablet pantoprazole 40 mg tablet,delayed release pantoprazole 40 mg tablet,delayed release completed pantoprazole 40 MG Delayed Release Oral Tablet ROBERTO ([facility]) gabapentin 100 MG Oral Capsule gabapentin 100 mg capsu le gabapentin 100 mg capsule completed gabapentin 100 MG Oral Capsule ROBERTO ([facility]) TPN ADULT (ION-BASED) Intravenous abor romario Inject into the vein [id number] Indications: 14 HRS RUN [facility] Doxycycline Monohydrate 5 MG/ML Oral Rani pension doxycycline monohydrate 25 mg/5 mL oral suspension doxycycline monohydrate 25 mg/5 mL oral suspension completed doxycycline monohydrate 5 MG /ML Oral Suspension ROBERTO ([facility]) Amoxicillin 500 MG Oral Capsule amoxicillin 500 mg cap nuvia amoxicillin 500 mg capsule completed amoxicillin 50 0 MG Oral Capsule ROBERTO ([facility]) Zolpidem tartrate 5 MG Oral Tablet zolpidem 5 mg tablet zolpidem 5 mg tablet completed zolpidem tartr ate 5 MG Oral Tablet ROBERTO ([facility]) 0.6 ML Enoxaparin sodium 100 MG/ML Prefi lled Syringe Enoxaparin Sodium 60 MG/0.6ML Subcutaneous Solution (LOVENOX) Enoxaparin Sodium 60 MG/0.6ML Subcutaneous Solution (LOVENOX) 60 mg Subcutaneous aborted Inject 60 mg into the skin daily [facility] Misoprostol 0.2 MG Oral Tablet misoprostol 200 mcg tab let misoprostol 200 mcg tablet completed misoprostol 0.2 MG Oral Tablet ROBERTO ([facility]) Nystatin [id number] UNT/ML Topical Cream nystatin 100,000 unit/gram topical cream nystatin 100,000 unit/gram topical cream completed nystatin 978122 UNT/ML Topical Cream ROBERTO ([facility] ) ertapenem 1 gram solution for injection [id number] completed ertapenem 1000 MG Injection ROBERTO ([facility] ) Zolpidem tartrate 6.25 MG Extended Relea se Oral Tablet zolpidem ER 6.25 mg tablet,extended release,multiphase zolpidem ER 6.25 mg tablet,extended release,multiphase completed zolpidem tartrate 6.25 MG Extended Release Oral Tablet ROBERT[facility] ([facility] sodium chloride 0.9 % intravenous piggyback [id number] completed sodium chloride 9 MG/ML Injection ROBERTO ([facility] ) Oxycodone Hydrochloride 5 MG Oral Tablet oxycodone 5 m g tablet oxycodone 5 mg tablet completed oxycodone hydro chloride 5 MG Oral Tablet ROBERTO ([facility] ) Metronidazole 5 MG/ML Injectable Solutio n metronidazole 500 mg/100 mL-sodium chloride(iso) intravenous piggyback metronidazole 500 mg/100 mL-sodium chloride(iso) intravenous piggyback co mpleted 100 ML metronidazole 5 MG/ML Injection ROBERTO ([facility] ) HEPARIN LOCK FLUSH IV Intravenous aborted Inject into the vein [facility] 1 ML heparin sodium, porcine 10 UNT/ML I njection Heparin Lock Flush 10 UNIT/ML Intravenous Solution Heparin Lock Flush 10 UNIT/ML Intravenous Solution 10 U Intracatheter aborted Patency Maintenance of Ind welling Catheter 10 Units by Intracatheter route as needed (3 ml)Current Heparin flush patient uses at home for [place] catheter Indications: Prevention of Closure of Indwelling Catheter [facility] Patency Maintenance of Indwelling Cathet er linezolid 600 MG Oral Tablet linezolid 600 mg tablet linezolid 6 00 mg tablet completed linezolid 600 MG Oral Tablet ROBERTO ([facility] ) sodium chloride 0.9 % intravenous solution [id number] completed sodium chloride 9 MG/ML Injection ROBERTO ([facility] ) Promethazine Hydrochloride 25 MG Rectal Suppository [Promethegan] Promethegan 25 mg rectal suppository Promethegan 25 mg rectal suppository completed promethazine hydrochloride 25 MG Rectal Suppository [Promethegan] ROBERTO ([facility] ) Insurance Providers Payer name Policy type / Coverage type Policy ID Covered republican ID Covered republican's relationship to fuller Policy Fuller Plan Information BCBS EMPIRE ROBERT DIV [id number] HU2 [id number] [facility] [id number] HU2 [id number] [facility] O [id number] S [id number] [facility] EMPIRE -PHYSICIAN [id number] 01 [id number] [facility] EMPIRE -PHYSICIAN [id number] 01 [id number] EMPIRE BLUE CROSS BLUE SHIELD -O/P [id number] 01 [id number] EXCELLUS BLUE CROSS BLUE SHIELD HEA [id number] SP [id number] EMPIRE PLAN [facility] U [id number] Spouse [id number] Beaver Plan Primary [id number] [facility] [id number] HU2 [id number] [place] [id number] Spouse [id number] [place] [id number] [facility] [id number] HU2 [id number] BCBS EMPIRE ROBERT DIV [id number] HU2 [id number] BCBS EMPIRE ROBERT DIV [id number] HU2 [id number] [facility] [id number] HU2 [id number] BCBS EMPIRE ROBERT DIV [id number] HU2 [id number] BCBS EMPIRE ROBERT DIV [id number] HU2 [id number] BCBS EMPIRE ROBERT DIV [id number] HU2 [id number] EMPIRE PLAN [facility] U [id number] Spouse [id number] ANSI-Commercial [id number]-k153-3v6smg802p4l a12s5y43-49x9-22xu-f169-9p2lbj770l8k [facility] [id number] [id number] ANSI-Commercial [id number]-7zkc-7v16-p6l9-[id number] g8x4058h-3zpz-9c75-i6u9-htv7mw988sr7 ANSI-Commercial a81a4057-24wj-421c-66h6-y7e6767w9uw3 w14i3664-30bp-995n-65u7-x3c1958y6yg3 ANSI-Commercial 7s4658am-64k7-1e58-884k-8q16r71n0d16 8x7030eo-58y1-6d05-892c-9i43v62r8v37 ANSI-Commercial pz3932l1-k576-1563-kk08-u0az9m287t41 rr5103c8-u723-4332-qt25-u4gj8u533y59 ANSI-Commercial 93600ke2-er15-8u19-u7l9-v43f4015s479 73931dt2-ks36-0k11-g5o2-g77k7158c402 ANSI-Commercial 06af180u-653a-6278-g677-j574p6y6k731 05gr143x-332i-3198-e012-r741i2d4z563 ANSI-Commercial q695ndy5-46n8-01zt-vp9e-q4bg2pkuh333 q315jow2-67u5-31uo-qp7o-y1cs3lnar196 ANSI-Commercial 6a105vm3-vz14-0282-v5ee-6m8q21a130w1 1v404fq7-cf45-2887-l8nn-3q1k00v383j5 ANSI-Commercial rj572w36-190w-8t86-m9lu-s988ic4004d3 mx650l46-432c-9l05-y1db-d030lp9130t1 ANSI-Commercial km1597b0-912b-6122-5956-l95oa8x709z8 ah4409f7-872u-6832-4771-g08ru5t855b4 ANSI-Commercial 831og50q-1nx7-12o5-2l01-3t5btth60313 715ic22b-5bq1-20t3-8w35-4k1fevu58860 ANSI-Commercial 6k520i0s-26g4-3506-0687-c52k0117nv3n 6k254x0l-70v9-6144-4634-h43n0906tt9r ANSI-Commercial mrjqsyrv-0157-6e733c35-344o-6703kl75k683 ydkckkeg-7275-2k863u44-353s-7932ou90b760 [facility] [id number] [facility] [id number] ANSI-Commercial 99k4io59-5am4-6961-7hew-2s5g5815i241 05h6qi96-4dm6-9841-1nol-4x4q2872t505 ANSI-Commercial 07yxs005-0q07-9qp6-w365-3ot97e6r1ec4 08buv370-9y44-9uz7-f522-7mi45m0j0gv6 [facility] [place] [id number] Family Dependent [id number] ANSI-Commercial 47422n2f-nazq-256t-79x1-93h64kxv8l11 78070z0o-shcm-125w-14q6-44q06ias1e44 ANSI-Commercial 7609c8xj-w5q2-0o21-16r0-91n6uhw8r91j 3630m4mk-q9u7-5y49-42q6-69q1vwy8o47z ANSI-Commercial i9056478-6rw6-018g-803x-1mn2j2774lux q5293127-6gf5-560x-342c-2nw0q8785kjx ANSI-Commercial 17j16473-13s2-5z9w-hz85-9b1s2kei4452 91i37264-87m2-3d7j-rr64-0k3v3boh5984 ANSI-Commercial 5qp3vg71-025h-8drz-o74y-3j757t9719q3 8oq8ap58-730f-3epo-r63q-4e591d7177b0 ANSI-Commercial 09r59z3c-t149-4x5c-16q0-y8y7k649ej0s 83r89l2c-a293-4e5d-08s2-f9c5h493nh5h ANSI-Commercial 7bg183xt-a119-41oz-906b-24466288z8z7 2zt573uc-l916-46gq-103w-24979223m6a1 ANSI-Commercial 869fcx84-7bmf-0q4a-plnv-182x26y05894 768uuf20-0kkx-0l5k-exhu-890k82s94814 ANSI-Commercial 4106z056-4413-4xn7-826p-05k4ogkr5330 1439s963-4242-4jd0-946m-37z0umue7298 ANSI-Commercial 189w8rb3-3w06-13co-nva4-20x5224664om 410t7sw1-5a67-85jv-hah0-91s7412637nq ANSI-Commercial 5927qsz6-t2n2-88d0-9om9-t2707e6e7823 5154bqu4-b4s6-74s3-4mj0-c6980v0v5615 ANSI-Commercial 188292s4-93l1-8610-u08d-kx328t702c08 623456d9-80m0-2063-c24o-ud291b403o99 ANSI-Commercial 3jf09164-a5x9-92b0-di49-9984918g1vic 9tt14021-r7j3-21w1-px83-4503275b5irs ANSI-Commercial 5a58z5e4-mx0z-1w70-yw09-s3p6a1vf8486 9s45q9j2-qd4j-8d04-qk98-o8q4g5od5020 ANSI-Commercial 142528z0-3fy5-786g-8965-c671y49e734c 543156l3-7yr5-531m-7647-b631a81l874t ANSI-Commercial 40pa3507-645c-936w-029p-7dg41qi7c375 20qr4774-030k-784h-753y-3an48ac2s779 ANSI-Commercial g9q9q02m-8zdd-0pb6-vf6l-8o1266qvml08 q2w9s80i-3smk-7xm8-ds8p-5l1628dach75 ANSI-Commercial 4et2r699-ac93-2820-9c55-02z50q1aw244 1ue9h546-zf32-8987-1v22-09a57s0zi402 ANSI-Commercial l005n080-33j1-434m-h0zb-5ni14472nz5e e552b870-77d4-773a-o8yh-2ga05647rg8u ANSI-Commercial 971q3t0p-049u-6885-806w-072l446170u5 740j8a0s-213e-8473-126s-118s964895t9 ANSI-Commercial e49jz0l7-87ei-8460-z4q0-3q7w8m2perka u60nt9e9-82fh-5547-j0e0-2u8w2o1tiwyu ANSI-Commercial 977w12pw-94wn-9p4u-2744-3r9i43o0he62 969g24mc-89fp-4n8a-2357-9x4o80d9pb94 ANSI-Commercial 32n1075q-3k5x-78m7-uw4b-14i18cidnm32 01h7290w-3n7r-11v1-uz3l-29y38rqlmr10 ANSI-Commercial 8i391i23-4r09-7058-miot-b31454n6d939 2l743d60-0x82-9749-xepp-k57049i6m269 ANSI-Commercial h9h56gf0-yo9l-2269-b938-l73ej19ipqy2 f9d80be1-ki6v-7097-k861-f36bs31phiz4 ANSI-Commercial 38361v5t-1i71-1796-x260-n26w3j75mou1 13507r6y-0s18-2323-i285-e18y3x90voe0 ANSI-Commercial 8i328514-9d9q-07pm-6v03-569405sp4989 9n656056-5v4r-60pf-2v81-418912za6851 [facility] [id number] HU2 [id number] BCBS EMPIRE ROBERT DIV [id number] HU2 [id number] ANSI-Commercial 416630nx-80q8-5b61-6pn0-0r7y0glg09p7 839389nb-00x3-8n97-6xy8-8v9g1ypq43t9 [facility] [employer] Commercial [id number] Family Depende nt [id number] [facility] [employer] Commercial [id number] Family Depende nt [id number] ANSI-Commercial w9df9175-c6c9-2w3n-7sgg-327w1v2fzmhi k5sw5416-b5a5-5v2j-9fsy-047n9d6ovmqc ANSI-Commercial 1f96rcl2-q6a7-7zgb-s463-9k025405di4r 1x43lre6-j0g4-0zpu-g344-4e151109bh7v ANSI-Commercial 0b2rq212-3147-74yh-n095-485m051174rm 8y8dv093-5221-41dl-h849-551m968576wb ANSI-Commercial amzj1030-xtzu-027b-ho3v-9z97333fk5q4 awbp7043-novf-299f-le6c-6p16620kv5g9 ANSI-Commercial 9a870329-7u65-9m46-50s5-0766098l1a8d 3m635925-4e58-3h75-13d2-3120203f5s8k ANSI-Commercial 9i28z2xo-0821-349s-f788-471p6s4ij6d2 8h07m0ia-4653-902q-k152-324q8n2tf1t8 ANSI-Commercial j13eu05t-9v9o-26l0-0w25-645b79849oo8 v66uz36n-6t5q-57y3-0a00-174d55726ne2 ANSI-Commercial f3582tx4-70ci-3618-09w7-668k1f5l082c l7276ln0-04yz-5048-81q5-330o6v5j525c ANSI-Commercial y8934974-20i8-0571-j8ti-2u19d5y19770 j0882916-56l1-6806-n5tt-5m69w6o78128 ANSI-Commercial 9q6ri39n-3143-05g4-m232-hj4n1515h96p 3m8fw86e-2677-92c0-g754-yd5o0505u49r ANSI-Commercial 5lrnr5t5-y6o5-6q17-vie5-1cd1s048u043 1ogal3b7-j7b5-0e12-gkr2-3xs9x593p644 ANSI-Commercial m6m4f1if-1567-6n39-011h-yl784v1ag456 e6d6r7hb-0622-0s73-888k-rr352k1jy784 ANSI-Commercial 71345lj0-k36t-2k32-62h2-r35e9jl22606 01789qm5-d14e-1e37-45b4-n96z8nm03046 ANSI-Commercial zyd712au-pg82-5329-ja50-9bm26w3n162q ovg777kd-pq46-8157-ns54-2wx35c2r939f ANSI-Commercial 192cq05c-3226-6dm0-m22m-7jdk632dic44 279ku00h-7791-0jg5-d06s-3smk137sox68 ANSI-Commercial m4u0742w-1o50-6z0n-j3p7-32v52a96gb3h a8g9448m-7w43-3f2u-e9o5-81q23n73qv6s ANSI-Commercial 3a7c473d-8413-260j-x9w4-df1cdlo62512 3q2h711q-5363-034l-m2x4-qx4zaze08945 ANSI-Commercial 28d7e61j-78we-9385-42ns-85e383677u54 55x2e65p-98ll-0346-75kv-52h568568d79 ANSI-Commercial 88398w86-6x6s-9um0-t78y-k018478gl840 82791m18-8c4f-3mg7-c90r-l572757ro122 ANSI-Commercial d86z60ql-s68l-3491-7c18-rko8806e4xh3 h59z17kb-l23e-8265-6m56-ljv6733b3sa9 ANSI-Commercial 1vpo51l9-0974-05m0-547b-05234oc4v1v1 2zgq53u4-2258-07y8-895g-13311cf9k8j7 ANSI-Commercial 439y7l5c-w3mg-1y92-6hkr-97511b7x914p 588u5n0o-b0co-9m71-3jgw-19181i6k501y ANSI-Commercial 2p0mm111-9856-6101-q512-w313u6ogf9t1 3x6hq504-5062-0944-r428-d752v2ugj5d6 ANSI-Commercial 9u5i4qge-8y7i-348e-29f2-450h6l9157v7 1m0m9biw-6n6c-766d-89u3-300p8h2884k3 ANSI-Commercial 7g36o49j-o22j-6gs3-ji4p-44z5p80a0a15 2y37q73n-p49b-6vp8-mf0s-82j1m31g6c46 ANSI-Commercial 21x53j1h-7we7-2yqz-2j07-6j9sj11gp539 48d31a4h-6sg5-8sxj-3q28-3z7nv40ax668 ANSI-Commercial 8q91y03a-1714-0280-7fhp-32s607149w18 4i33e33z-1411-9474-7dpx-96c452015x14 ANSI-Commercial 350ve068-z058-6806-t7c4-u9pc00133t63 079cx211-w811-3407-t0t9-s2gx32161m84 ANSI-Commercial 86w2l058-0365-6p85-81n3-eg68sog8k79v 57k4d741-8292-2q83-48u5-sk92rbr8c08t ANSI-Commercial 3m5d49jn-jswu-0tk3-he9h-s6p8irs3b801 2s6n95cm-wtdc-6mb5-ze6j-h2b9rcg3s710 ANSI-Commercial 2dr2030j-5160-98h4-u125-2601f6767598 9vk1601j-7893-64j8-s267-5631z0505999 ANSI-Commercial 2nvj60r7-27xs-27w5-7397-1d27p7dd8927 8hvw50s8-80bu-05v1-3292-1g29p4le7468 ANSI-Commercial x33s04y6-m3yl-7471-j486-45b1d30819b0 b33o41z7-h0od-0340-i761-58r3q71696o3 EXCELLUS BLUE CROSS BLUE SHIELD HEA [id number] ANSI-Commercial 19k9fg0y-4625-1c20-okrc-s344a1l42a0j 65n1hb1b-8663-2n33-midh-w606b3w46c0n ANSI-Commercial 547h4334-20zt-97n3-1j9c-ltnwn88e8831 982x0229-28vh-29s4-4f7w-btakm28v7653 BCBS EMPIRE ROBERT [facility] [id number] [facility] [id number] ANSI-Commercial 6zc21415-3ij5-25qv-7u63-f090wv68hmz9 6az78340-1cv6-73uo-2f75-h503id94aie7 ANSI-Commercial 3ax1cp30-s1u9-124j-e729-452be5t7k4a5 5gp5wu70-l2c8-369w-u301-354vm6v3k9l9 ANSI-Commercial r8iy09s1-r091-04gn-8md1-86o56u88n56b z7cb82c5-k508-32dw-2lk5-40o73t77a70f ANSI-Commercial yz82ithm-9251-8636-y2fa-77372syn57v8 pg46mizn-6645-0038-o8yk-55266sar72y6 ANSI-Commercial v6h4o578-376x-761h-zy42-0pw98jr1237t q0z2k377-224d-421q-rt45-8ob41ym5404p ANSI-Commercial i6779798-p75n-8u4y-u7l2-ua3601wqh869 t3575197-n39g-6f6f-y2h8-gq2486xbs356 ANSI-Commercial 32777b95-73au-0745-t2m5-o59ao608z7t3 63888q45-35mo-0907-w1q6-p71yv428s8m8 ANSI-Commercial 14353zo8-t0p2-461g-f8ar-p692ym987m21 98983bj7-r3g1-224z-i5ng-k200kb077v43 ANSI-Commercial 9903tj95-8281-2nz1-fv7j-18177z163o11 8277an80-1129-4kz3-fy1p-87141e227b52 ANSI-Commercial 9jnlor23-4227-0t04-8lek-3242evjg8x7c 8vvojg13-5852-6g54-6twf-1748ahrb8q6v ANSI-Commercial 9b7vi95v-uwxd-7254-w22p-385629b3310d 6s5vj80u-nbzg-4490-e50z-505615e6427l ANSI-Commercial q5dn04u1-n4v6-3m2n-euc8-3zt5413d40r8 r2pb83w1-e4g2-0l0a-mtc0-5sf5836d87s5 ANSI-Commercial j2541e23-5570-446m-uo84-507k27j3004g z7252x52-1841-216l-mf18-025q24n0033g ANSI-Commercial 268x79w6-083i-347o-846v-oo90z357gh2l 083s22v2-739w-489y-751y-aw28f662mw2p [employer] Commercial [id number] Family Dependent [id number] [facility] [id number] SP [id number] Be[employer] Plan Commercial [id number] Family Dependent [id number] [employer] Plan Commercial [id number] Family Dependent [id number] [facility] [id number] HU2 [id number] Be[employer] Plan Commercial [id number] Family Dependent [id number] BCBS EMPIRE ROBERT DIV [id number] HU2 [id number] [facility] [employer] (HMO) [id number] Family Dependent [id number] [facility] [employer] (HMO) [id number] Family Dependent [id number] [facility] [employer] (HMO) [id number] Family Dependent [id number] [facility] (HMO) [id number] Family Dependent [id number] [facility] [employer] [id number] Family Depende nt [id number] [facility] [id number] [facility] [employer] Family Depende nt Beaver Plan F [id number] SPOUSE [id number] [facility] [id number] 01 [id number] EMPIRE (STATE EMP) O [id number] P [id number] EXCELLUS BCBS [id number] Spo [id number] [id number] VALUE OPTIONS OUTPATIENT CLAIM [id number] HU2 [id number] Beaver Plan F [id number] SPOUSE [id number] EXCELLUS BCBS [id number] Spo YLS [id number] [employer] Insurance [id number] 1 [id number] BC BLUE CARD 1 [id number] SELF PAY 2 UNAVAILABLE 1 UNAVAILA BLE [id number] Problems, Conditions, and Diagnoses Code Display Name Description Problem Type Effective Dates Data Source(s) I26.93 98845084 Single subsegmental pulmonary embolism without acute cor pulmonale Problem 08/25/2020 12:00:00 AM EST eCW1 ([facility]) D63.8 [id number] Anemia, chronic disease Problem 04/05/2020 1 2:00:00 AM EDT eCW1 ([facility]) D72.829 697919028 Leukocytosis, unspecified type Problem 03/28/2020 12:00:00 AM EDT eCW1 ([facility]) Z93.4 253733992 Jejunostomy tube present Problem 02/18/2020 12:00:00 AM EDT eCW1 ([facility]) Z93.4 136563029 Jejunostomy tube present Problem 02/18/2020 12:00:00 AM EDT eCW1 ([facility]) B95.7 340031763 Staphylococcus epidermidis infection Prob omkar 01/18/2020 12:00:00 AM EDT eCW1 ([facility]) R50.9 574297987 Persistent fever Problem 01/18/2020 12:00:00 AM EDT eCW1 ([facility]) T80.219A 091270152 Central venous line infection, initial en counter Problem 01/18/2020 12:00:00 AM EDT eCW1 ([facility]) A48.8 71564813 Serratia marcescens infection Problem 2019 12:00:00 AM EDT eCW1 ([facility]) T80.219A 559096006 Central venous line infection, initial en counter Problem 01/18/2020 12:00:00 AM EDT eCW1 ([facility]) A48.8 63776162 Serratia marcescens infection Problem 2019 12:00:00 AM EDT eCW1 ([facility]) B95.7 646644393 Staphylococcus epidermidis infection Prob omkar 01/18/2020 12:00:00 AM EDT eCW1 ([facility]) R50.9 252479092 Persistent fever Problem 01/18/2020 12:00:00 AM EDT eCW1 ([facility]) E16.1 1312181 Hyperinsulinemic hypoglycemia Problem 2019 12:00:00 AM EST eCW1 ([facility]) E16.1 2241269 Hyperinsulinemic hypoglycemia Problem 2019 12:00:00 AM EST eCW1 ([facility]) intractable abd pain intractable abd pain Diagnosis 10/17/2020 05:21:00 PM [facility] Z9884 Bariatric surgery status Bariatric surgery status Diag nosis 10/17/2020 11:18:00 AM [facility] Z9049 Acquired absence of other specified part s of digestive tract Acquired absence of other specified parts of digestive tract Diagnosis 11:18:00 AM [facility] C56079 Personal history of urinary (tract) infe ctions Personal history of urinary (tract) infections Diagnosis 10/17/2020 11:18:00 AM [facility] P67231 Personal history of pulmonary embolism P ersonal history of pulmonary embolism Diagnosis 10/17/2020 11:18:00 AM [facility] D75943 Contact with and (suspected) exposure to other viral communicable diseases Contact with and (suspected) exposure to other viral communicable diseases Diagnosis 10/17/2020 11:18:00 AM [facility] R7401 Elevation of levels of liver transaminas e levels Elevation of levels of liver transaminase levels Diagnosis 10/17/2020 11:18:00 AM [facility] R1031 Right lower quadrant pain Right lower quadrant pain Di agnosis 10/17/2020 11:18:00 AM [facility] D64.9 Anemia, unspecified Anemia, unspecified Diagnosis 1 10/21/2019 12:00:00 AM EDT [facility] R10.13 Epigastric pain Epigastric pain Diagnosis 07/31/2020 03:1 2:38 PM EDT [facility] ABD PAIN ABD PAIN Diagnosis 07/31/2020 03:12:38 PM ED T [facility] abd pain abd pain Diagnosis 07/31/2020 08:03:00 AM ED T [facility] R1033 Periumbilical pain Periumbilical pain Diagnosis 08/2020 05:17:00 AM EDT [facility] 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, 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 Postsurgical malabsorption, not elsewhere classified Diagnosis 07/31/2020 05:17:00 AM EDT [facility] 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) Diagnosis [facility] Volume depletion, unspecified Volume depletion, unspec ified Diagnosis 07/31/2020 05:17:00 AM EDT [facility] R112 Nausea with vomiting, unspecified Nausea with vo miting, unspecified Diagnosis 07/31/2020 05:17:00 AM EDT [facility] R1013 Epigastric pain Epigastric pain Diagnosis 07/31/2020 05:1 7:00 AM [facility] K3184 Gastroparesis Gastroparesis Diagnosis 07/30/2020 03:19:00 PM [facility] R1084 Generalized abdominal pain Generalized abdominal pain Diagnosis 07/30/2020 03:19:00 PM [facility] D649 Anemia, unspecified Anemia, unspecified Diagnosis 0 06/03/2020 04:15:00 PM [facility] N390 Urinary tract infection, site not specif ied Urinary tract infection, site not specified Diagnosis 06/03/2020 04:15:00 PM [facility] K625 Hemorrhage of anus and rectum Hemorrhage of anus and r ectum Diagnosis 06/03/2020 04:15:00 PM [facility] R000 Tachycardia, unspecified Tachycardia, unspecified Diag nosis 05/31/2020 07:27:00 PM [facility] R002 Palpitations Palpitations Diagnosis 05/31/2020 07:27:00 P M [facility] K5900 Constipation, unspecified Constipation, unspecified Di agnosis 05/22/2020 04:24:00 PM [facility] K86.89 Other specified diseases of pancreas Oth er specified diseases of pancreas Diagnosis 03/22/2020 09:51:08 AM [facility] K31.84 Gastroparesis Gastroparesis Diagnosis 02/23/2020 09:03:07 AM [facility] G89.29 Other chronic pain Other chronic pain Diagnosis 04/2020 08:38:11 PM [facility] R10.9 Unspecified abdominal pain Unspecified abdominal pain Diagnosis 10/27/2019 08:38:11 PM [facility] R52 Pain, unspecified Pain, unspecified Diagnosis 10/27/2019 07:32:30 PM [facility] sepsis sepsis Diagnosis 10/27/2019 07:32:30 PM [facility] E876 Hypokalemia Hypokalemia Diagnosis 10/27/2019 11:19:00 AM [facility] [id number] Acute cystitis with hematuria Acute cystitis with pedro turia Diagnosis 10/27/2019 11:19:00 AM [facility] I509 Heart failure, unspecified Heart failure, unspecified Diagnosis 10/27/2019 11:19:00 AM [facility] [id number] Severe sepsis with septic shock Severe sepsis with sep tic shock Diagnosis 10/27/2019 11:19:00 AM [facility] A419 Sepsis, unspecified organism Sepsis, unspecified organ ism Diagnosis 10/27/2019 11:19:00 AM [facility] R509 Fever, unspecified Fever, unspecified Diagnosis 0 11:19:00 AM [facility] E86.0 Dehydration Dehydration Diagnosis 10/05/2019 02:18:23 PM [facility] 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 Upper GI bleed, s/p gastric bypass with j-tube placement 3 weeks ago, pancreatitis. 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 Other artificial openings of gastrointestinal tract status Diagnosis 1 11/22/2018 04:47:42 PM [facility] Z78.9 Other specified health status Other specified health s tatus Diagnosis 09/21/2019 04:46:49 PM [facility] Z79.01 FPC (current) use of anticoagulant s FPC (current) use of anticoagulants Diagnosis 09/21/2019 11:00:59 AM [facility] Surgeries/Procedures Procedure Description Date Indications Data Source(s) MAGNESIUM MAGNESIUM Routine 08/04/2020 4:42 AM EDT 08/04/2020 08:42:00 AM EDT [facility] BASIC METABOLIC PANEL CALCIUM TOTAL BASIC METABOLIC PANEL Routi ne 08/04/2020 4:42 AM EDT 08/04/2020 08:42:00 AM EDT [facility] FL UPPER GI WITH DOUBLE CONTRAST WITH SMALL BOWEL FOLL OW THROUGH FL UPPER GI WITH DOUBLE CONTRAST WITH SMALL BOWEL FOLLOW THROUGH Routine 1 11:54 AM EDT 08/03/2020 03:54:38 PM EDT [facility] POCT GLUCOSE METER UNSOLICITED RESULTS POCT GLUCOSE METER U NSOLICITED RESULTS Routine 08/02/2020 11:00 AM EDT 08/02/2020 03:00:00 PM EDT [facility] CYANOCOBALAMIN VITAMIN B-12 VITAMIN B12 AND FOLATE Routine 08/02/2020 10:33 AM EDT 08/02/2020 02:33:00 PM [facility]T [facility] IRON BINDING CAPACITY IRON BINDING CAPACITY, TOTAL Routine 08/02/2020 10:33 AM EDT 08/02/2020 02:33:00 PM EDT [facility] BLOOD COUNT RETICULOCYTE AUTOMATED RETICULOCYTES Routine 08/02/2020 10:33 AM EDT 08/02/2020 02:33:00 PM [facility]T [facility] HAPTOGLOBIN QUANTITATIVE HAPTOGLOBIN Routine 08/02/2020 10:33 AM ED T 08/02/2020 02:33:00 PM EDT [facility] FERRITIN FERRITIN Routine 08/02/2020 10:33 AM EDT 08/02/2020 02:33:00 PM EDT [facility] POCT GLUCOSE METER UNSOLICITED RESULTS POCT GLUCOSE METER U NSOLICITED RESULTS Routine 08/02/2020 9:49 AM EDT 08/02/2020 01:49:00 PM EDT [facility] EEG-INPATIENT EEG-INPATIENT Routine 08/02/2020 9:06 AM EDT 08/02/2020 01:06:54 PM EDT [facility] UPPER GI ENDOSCOPY UPPER GI ENDOSCOPY 08/02/2020 9:05 AM E DT 08/02/2020 01:05:27 PM EDT [facility] UPPER GI NDSC DX W/WO COLLECTION SPECIMEN EGD (ESOPHAGOGASTRODU ODENOSCOPY) 08/02/2020 8:09 AM EDT abdominal pain/hx ru-en y with reversal 08/02/2020 12: 09:00 PM EDT - 08/02/2020 12:48:00 PM EDT [facility] US ABDOMINAL REAL TIME W/IMAGE DOCUMENTATION US ABDOMEN COMPLET E Routine 08/02/2020 6:57 AM EDT 08/02/2020 10:57:56 AM EDT [facility] CUL BACT STOOL AEROBIC ADDL PATHOGENS&ID EA ENTERIC PATHOGEN PA BRITTNEY Routine 08/02/2020 5:45 AM EDT 08/02/2020 09:45:00 AM EDT [facility] LEUKOCYTE ASSMT FECAL QUAL/SEMIQUANTITATIVE FECAL LEUKOCYTES Ro utine 08/02/2020 5:45 AM EDT 08/02/2020 09:45:00 AM EDT [facility] PROTHROMBIN TIME PROTHROMBIN TIME NO THERAPY OR UNKNOWN Routine 08/02/2020 5:30 AM EDT 08/02/2020 09:30:00 AM EDT [facility] BLOOD COUNT COMPLETE AUTO&AUTO DIFRNTL WBC COUNT HC CBC W/ DIFFERENTIAL Routine 08/02/2020 5:30 AM EDT 08/02/2020 09:30:00 AM EDT [facility] COMPREHENSIVE METABOLIC PANEL COMPREHENSIVE METABOLIC PANEL [place] 08/02/2020 5:30 AM EDT 08/02/2020 09:30:00 AM EDT [facility] HC SARS-COV-2 COVID-19 AMP PRB HC SARS-COV-2 COVID-19 AMP PRB S TAT 08/01/2020 2:10 PM EDT 08/01/2020 06:10:00 PM [facility]T [facility] PROLACTIN PROLACTIN STAT 08/01/2020 7:49 AM EDT 08/01/2020 11:49:00 AM EDT [facility] LIPASE LIPASE Routine 08/01/2020 7:49 AM EDT 08/01/20 20 11:49:00 AM EDT [facility] AMYLASE AMYLASE Routine 08/01/2020 7:49 AM EDT 020 11:49:00 AM EDT [facility] BLOOD COUNT COMPLETE AUTO&AUTO DIFRNTL WBC COUNT HC CBC W/ DIFF ERENTIAL STAT 07/31/2020 10:40 PM EDT 08/01/2020 02:40:00 AM EDT [facility] BASIC METABOLIC PANEL CALCIUM TOTAL BASIC METABOLIC PANEL STAT 07/31/2020 10:40 PM EDT 08/01/2020 02:40:00 AM EDT [facility] PROCALCITONIN TEST PROCALCITONIN TEST STAT 07/31/2020 3:58 PM E DT 07/31/2020 07:58:00 PM EDT [facility] BLOOD COUNT COMPLETE AUTO&AUTO DIFRNTL WBC COUNT HC CBC W/ DIFF ERENTIAL STAT 07/31/2020 3:58 PM EDT 07/31/2020 07:58:00 PM EDT [facility] C-REACTIVE PROTEIN C-REACTIVE PROTEIN STAT 07/31/2020 3:58 PM E DT 07/31/2020 07:58:00 PM EDT [facility] LIPASE LIPASE STAT 07/31/2020 3:58 PM EDT 07/31/20 20 07:58:00 PM EDT [facility] COMPREHENSIVE METABOLIC PANEL COMPREHENSIVE METABOLIC PANEL STA T 07/31/2020 3:58 PM EDT 07/31/2020 07:58:00 PM EDT [facility] POCT GLUCOSE, DOCKED POCT GLUCOSE, DOCKED Routine 11/02/2019 11:40 AM EST 11/02/2019 04:40:00 PM [facility] BASIC METABOLIC PANEL CALCIUM TOTAL BASIC METABOLIC PANEL STAT 11/02/2019 7:48 AM EST 11/02/2019 12:48:00 PM [facility] POCT GLUCOSE, DOCKED POCT GLUCOSE, DOCKED Routine 11/02/2019 7:42 AM EST 11/02/2019 12:42:00 PM [facility] BLOOD COUNT COMPLETE AUTO&AUTO DIFRNTL WBC COUNT CBC AND DIFFER ENTIAL Routine 11/02/2019 4:50 AM EST 11/02/2019 09:50:00 AM [facility] PHOSPHORUS INORGANIC PHOSPHORUS LEVEL Routine 11/02/2019 4:[address] 11/02/2019 09:50:00 AM [facility] MAGNESIUM MAGNESIUM LEVEL Routine 11/02/2019 4:50 AM EST 11/02/2019 09:50:00 AM [facility] BASIC METABOLIC PANEL CALCIUM TOTAL BASIC METABOLIC PANEL Routi ne 11/02/2019 4:50 AM EST 11/02/2019 09:50:00 AM [facility] POCT GLUCOSE, DOCKED POCT GLUCOSE, DOCKED Routine 11/02/2019 4:34 AM EST 11/02/2019 09:34:00 AM [facility] GLUCOSE QUANTITATIVE BLOOD XCPT REAGENT STRIP POCT GLUCOSE, DOC HECTOR Routine 11/01/2019 11:56 PM EST 11/02/2019 04:56:00 AM [facility] GLUCOSE QUANTITATIVE BLOOD XCPT REAGENT STRIP POCT GLUCOSE, DOC HECTOR Routine 11/01/2019 8:09 PM EST 11/02/2019 01:09:00 AM [facility] GLUCOSE QUANTITATIVE BLOOD XCPT REAGENT STRIP POCT GLUCOSE, SEBASTIEN YOUNG Routine 11/01/2019 4:23 PM EST 11/01/2019 09:23:00 PM [facility] GLUCOSE QUANTITATIVE BLOOD XCPT REAGENT STRIP POCT GLUCOSE, SEBASTIEN YOUNG Routine 11/01/2019 11:53 AM EST 11/01/2019 04:53:00 PM [facility] GLUCOSE QUANTITATIVE BLOOD XCPT REAGENT STRIP POCT GLUCOSE, SEBASTIEN YOUNG Routine 11/01/2019 8:04 AM EST 11/01/2019 01:04:00 PM [facility] GLUCOSE QUANTITATIVE BLOOD XCPT REAGENT STRIP POCT GLUCOSE, SEBASTIEN YOUNG Routine 11/01/2019 3:53 AM EST 11/01/2019 08:53:00 AM [facility] BLOOD COUNT COMPLETE AUTO&AUTO DIFRNTL WBC COUNT CBC AND DIFFER ENTIAL Routine 11/01/2019 3:47 AM EST 11/01/2019 08:47:00 AM [facility] PHOSPHORUS INORGANIC PHOSPHORUS LEVEL Routine 11/01/2019 3:[address] 11/01/2019 08:47:00 AM [facility] MAGNESIUM MAGNESIUM LEVEL Routine 11/01/2019 3:47 AM EST 11/01/2019 08:47:00 AM [facility] BASIC METABOLIC PANEL CALCIUM TOTAL BASIC METABOLIC PANEL Routi ne 11/01/2019 3:47 AM EST 11/01/2019 08:47:00 AM [facility] GLUCOSE QUANTITATIVE BLOOD XCPT REAGENT STRIP POCT GLUCOSE, SEBASTIEN YOUNG Routine 10/31/2019 10:22 PM EST 11/01/2019 03:22:00 AM [facility] GLUCOSE QUANTITATIVE BLOOD XCPT REAGENT STRIP POCT GLUCOSE, SEBASTIEN YOUNG Routine 10/31/2019 4:14 PM EST 10/31/2019 09:14:00 PM [facility] GLUCOSE QUANTITATIVE BLOOD XCPT REAGENT STRIP POCT GLUCOSE, SEBASTIEN YOUNG Routine 10/31/2019 11:23 AM EST 10/31/2019 04:23:00 PM [facility] GLUCOSE QUANTITATIVE BLOOD XCPT REAGENT STRIP POCT GLUCOSE, SEBASTIEN YOUNG Routine 10/31/2019 8:05 AM EST 10/31/2019 01:05:00 PM [facility] GLUCOSE QUANTITATIVE BLOOD XCPT REAGENT STRIP POCT GLUCOSE, SEBASTIEN YOUNG Routine 10/31/2019 4:17 AM EST 10/31/2019 09:17:00 AM [facility] PHOSPHORUS INORGANIC PHOSPHORUS LEVEL Routine 10/31/2019 4:[address] 10/31/2019 09:11:00 AM [facility] MAGNESIUM MAGNESIUM LEVEL Routine 10/31/2019 4:11 AM EST 10/31/2019 09:11:00 AM [facility] CALCIUM IONIZED CALCIUM, IONIZED Routine 10/31/2019 4:11 AM EST 10/31/2019 09:11:00 AM [facility] BASIC METABOLIC PANEL CALCIUM TOTAL BASIC METABOLIC PANEL Routi ne 10/31/2019 4:11 AM EST 10/31/2019 09:11:00 AM [facility] GLUCOSE QUANTITATIVE BLOOD XCPT REAGENT STRIP POCT GLUCOSE, SEBASTIEN YOUNG Routine 10/30/2019 10:09 PM EST 10/31/2019 03:09:00 AM [facility] GLUCOSE QUANTITATIVE BLOOD XCPT REAGENT STRIP POCT GLUCOSE, SEBASTIEN YOUNG Routine 10/30/2019 6:52 PM EST 10/30/2019 11:52:00 PM [facility] RADEX GI TRACT UPPER W/WO DELAYED FILMS W/O KUB FLUORO UPPER GI SERIES Routine 10/30/2019 1:58 PM EST 10/30/2019 06:58:38 PM [facility] TRIGLYCERIDES TRIGLYCERIDES STAT 10/30/2019 12:33 PM EST 10/30/2019 05:33:00 PM [facility] PHOSPHORUS INORGANIC PHOSPHORUS LEVEL STAT 10/30/2019 12:[address] 10/30/2019 05:33:00 PM [facility] MAGNESIUM MAGNESIUM LEVEL STAT 10/30/2019 12:33 PM EST 10/30/2019 05:33:00 PM [facility] BASIC METABOLIC PANEL CALCIUM TOTAL BASIC METABOLIC PANEL STAT 10/30/2019 12:33 PM EST 10/30/2019 05:33:00 PM [facility] XR ABDOMEN AP ERECT ONLY [id number] XR ABDOMEN AP ERECT ONLY [id number] R outine 10/29/2019 10:57 AM EST Pain 10/29/2019 03:57:25 PM [facility] RE[facility] RADIOLOGY REPORT 10/29/2019 10:37 AM EST 10/29/2019 03:37:30 PM [facility] RADIOLOGY REPORT RADIOLOGY REPORT 10/29/2019 10:37 AM EST 10/29/2019 03:37:29 PM [facility] MRI SPINAL CANAL LUMBAR W/O &W/CONTR MATRL MR LUMBAR SPINE WITH AND WITHOUT CONTRAST [id number] Routine 10/28/2019 1:54 PM EST 10/28/2019 06:54:00 PM [facility] ECHO TTHRC R-T 2D W/WOM-MODE COMPL SPEC&COLR DOP ECHOCARDIO GRAM 2D COMPLETE Routine 10/28/2019 8:01 AM EST 10/28/2019 01:01:53 PM [facility] NATRIURETIC PEPTIDE PROBNP Routine 10/28/2019 6:39 AM EST 10/28/2019 11:39:00 AM [facility] IRON TOTAL FE BINDING CAPACITY Routine 10/28/2019 6:39 AM EST 10/28/2019 11:39:00 AM [facility] SEDIMENTATION RATE RBC AUTOMATED SEDIMENTATION RATE, AUTOMATED Routine 10/28/2019 6:39 AM EST 10/28/2019 11:39:00 AM [facility] BLOOD COUNT COMPLETE AUTOMATED CBC AND DIFFERENTIAL Routine 10/28/2019 6:39 AM EST 10/28/2019 11:39:00 AM [facility] C-REACTIVE PROTEIN C-REACTIVE PROTEIN Routine 10/28/2019 6:[address] 10/28/2019 11:39:00 AM [facility] PHOSPHORUS INORGANIC PHOSPHORUS LEVEL Routine 10/28/2019 6:[address] 10/28/2019 11:39:00 AM [facility] MAGNESIUM MAGNESIUM LEVEL Routine 10/28/2019 6:39 AM EST 10/28/2019 11:39:00 AM [facility] LACTATE LACTIC ACID LEVEL, PLASMA Routine 10/28/2019 6:39 AM EST 10/28/2019 11:39:00 AM [facility] FERRITIN FERRITIN LEVEL Routine 10/28/2019 6:39 AM EST 10/28/2019 11:39:00 AM [facility] COMPREHENSIVE METABOLIC PANEL COMPREHENSIVE METABOLIC PANEL Rou la nena 10/28/2019 6:39 AM EST 10/28/2019 11:39:00 AM [facility] CT ABDOEN & PELVIS W/CONTRAST MATERIAL CT ABDOMEN PELVIS WI TH CONTRAST [id number] STAT 10/28/2019 4:12 AM EST 10/28/2019 09:12:53 AM [facility] CULTURE BACTERIAL BLOOD AEROBIC W/ID ISOLATES BLOOD CULTURE R outine 10/28/2019 1:04 AM EST 10/28/2019 06:04:00 AM [facility] CULTURE BACTERIAL BLOOD AEROBIC W/ID ISOLATES BLOOD CULTURE R outine 10/28/2019 12:55 AM EST 10/28/2019 05:55:00 AM [facility] GLUCOSE QUANTITATIVE BLOOD XCPT REAGENT STRIP POCT GLUCOSE, DOC KED Routine 10/27/2019 11:39 PM EST 10/28/2019 04:39:00 AM [facility] URNLS DIP STICK/TABLET REAGENT AUTO MICROSCOPY URINALYSIS W ITH MICROSCOPIC Routine 10/27/2019 10:27 PM EST 10/28/2019 03:27:00 AM [facility] CULTURE BCT ISOL&PRSMPTV ID ISOLATE EA URINE URINE CULTURE Ro utine 10/27/2019 10:27 PM EST 10/28/2019 03:27:00 AM [facility] EKG- ALL NON MCR/TRI PAYERS 10/16/2019 12:00:00 AM EST [email or web address] ([facility]) BLOOD COUNT COMPLETE AUTO&AUTO DIFRNTL WBC COUNT CBC AND DIFFER ENTIAL Routine 10/01/2019 3:22 AM EST 10/01/2019 08:22:00 AM [facility] PHOSPHORUS INORGANIC PHOSPHORUS LEVEL Routine 10/01/2019 3:[address] 10/01/2019 08:22:00 AM [facility] MAGNESIUM MAGNESIUM LEVEL Routine 10/01/2019 3:22 AM EST 10/01/2019 08:22:00 AM [facility] HEPATIC FUNCTION PANEL HEPATIC FUNCTION PANEL A Routine 10/01/2019 3:22 AM EST 10/01/2019 08:22:00 AM [facility] BASIC METABOLIC PANEL CALCIUM TOTAL BASIC METABOLIC PANEL Routi ne 10/01/2019 3:22 AM EST 10/01/2019 08:22:00 AM [facility] PREALBUMIN PREALBUMIN Routine 09/30/2019 10:20 AM EST 09/30/2019 03:20:00 PM [facility] BLOOD COUNT COMPLETE AUTO&AUTO DIFRNTL WBC COUNT CBC AND DIFFER ENTIAL Routine 09/30/2019 3:31 AM EST 09/30/2019 08:31:00 AM [facility] PREALBUMIN PREALBUMIN Routine 09/30/2019 3:31 AM EST 09/30/2019 08:31:00 AM [facility] PHOSPHORUS INORGANIC PHOSPHORUS LEVEL Routine 09/30/2019 3:[address] 09/30/2019 08:31:00 AM [facility] MAGNESIUM MAGNESIUM LEVEL Routine 09/30/2019 3:31 AM EST 09/30/2019 08:31:00 AM [facility] HEPATIC FUNCTION PANEL HEPATIC FUNCTION PANEL A Routine 09/30/2019 3:31 AM EST 09/30/2019 08:31:00 AM [facility] BASIC METABOLIC PANEL CALCIUM TOTAL BASIC METABOLIC PANEL Routi ne 09/30/2019 3:31 AM EST 09/30/2019 08:31:00 AM [facility] PHOSPHORUS INORGANIC PHOSPHORUS LEVEL Routine 09/29/2019 5:[address] 09/29/2019 10:38:00 PM [facility] BLOOD COUNT COMPLETE AUTO&AUTO DIFRNTL WBC COUNT CBC AND DIFFER ENTIAL Timed 09/29/2019 8:26 AM EST 09/29/2019 01:26:00 PM [facility] TROPONIN QUANTITATIVE TROPONIN T Timed 09/29/2019 8:26 AM EST 09/29/2019 01:26:00 PM [facility] PHOSPHORUS INORGANIC PHOSPHORUS LEVEL Routine 09/29/2019 5:[address] 09/29/2019 10:36:00 AM [facility] MAGNESIUM MAGNESIUM LEVEL Routine 09/29/2019 5:36 AM EST 09/29/2019 10:36:00 AM [facility] HEPATIC FUNCTION PANEL HEPATIC FUNCTION PANEL A Routine 09/29/2019 5:36 AM EST 09/29/2019 10:36:00 AM [facility] BASIC METABOLIC PANEL CALCIUM TOTAL BASIC METABOLIC PANEL Routi ne 09/29/2019 5:36 AM EST 09/29/2019 10:36:00 AM [facility] BLOOD COUNT COMPLETE AUTO&AUTO DIFRNTL WBC COUNT CBC AND DIFFER ENTIAL Timed 09/29/2019 12:03 AM EST 09/29/2019 05:03:00 AM [facility] TROPONIN QUANTITATIVE TROPONIN T Timed 09/29/2019 12:03 AM EST 09/29/2019 05:03:00 AM [facility] BLOOD COUNT COMPLETE AUTO&AUTO DIFRNTL WBC COUNT CBC AND DIFFER ENTIAL Timed 09/28/2019 3:55 PM EST 09/28/2019 08:55:00 PM [facility] TROPONIN QUANTITATIVE TROPONIN T Timed 09/28/2019 3:55 PM EST 09/28/2019 08:55:00 PM [facility] BLOOD COUNT COMPLETE AUTO&AUTO DIFRNTL WBC COUNT CBC AND DIFFER ENTIAL Timed 09/28/2019 12:28 PM EST 09/28/2019 05:28:00 PM [facility] EKG 12-LEAD - CMAXX REPORT EKG 12-LEAD - CMAXX REPORT 09/28/2019 10:58 AM EST 09/28/2019 03:58:00 PM [facility] EKG 12-LEAD - CMAXX REPORT EKG 12-LEAD - CMAXX REPORT 09/28/2019 10:58 AM EST 09/28/2019 03:58:00 PM [facility] EKG 12-LEAD EKG 12-LEAD Routine 09/28/2019 10:58 AM EST 09/28/2019 03:58:00 PM [facility] TROPONIN QUANTITATIVE TROPONIN T Timed 09/28/2019 8:51 AM EST 09/28/2019 01:51:00 PM [facility] PHOSPHORUS INORGANIC PHOSPHORUS LEVEL Routine 09/28/2019 8:[address] 09/28/2019 01:51:00 PM [facility] MAGNESIUM MAGNESIUM LEVEL Routine 09/28/2019 8:51 AM EST 09/28/2019 01:51:00 PM [facility] BLOOD COUNT COMPLETE AUTO&AUTO DIFRNTL WBC COUNT CBC AND DIFFER ENTIAL Timed 09/28/2019 5:34 AM EST 09/28/2019 10:34:00 AM [facility] LIPASE LIPASE LEVEL Routine 09/28/2019 5:34 AM EST 09/28/2019 10:34:00 AM [facility] HEPATIC FUNCTION PANEL HEPATIC FUNCTION PANEL A Routine 09/28/2019 5:34 AM EST 09/28/2019 10:34:00 AM [facility] BASIC METABOLIC PANEL CALCIUM TOTAL BASIC METABOLIC PANEL Timed 09/28/2019 5:34 AM EST 09/28/2019 10:34:00 AM [facility] BLOOD COUNT COMPLETE AUTO&AUTO DIFRNTL WBC COUNT CBC AND DIFFER ENTIAL Timed 09/28/2019 12:42 AM EST 09/28/2019 05:42:00 AM [facility] TROPONIN QUANTITATIVE TROPONIN T Timed 09/28/2019 12:42 AM EST 09/28/2019 05:42:00 AM [facility] BASIC METABOLIC PANEL CALCIUM TOTAL BASIC METABOLIC PANEL Timed 09/28/2019 12:42 AM EST 09/28/2019 05:42:00 AM [facility] UPPER GI ENDOSCOPY W/CONTROL, BLEEDING, ANY METHOD UP PER GI ENDOSCOPY W/CONTROL, BLEEDING, ANY METHOD 09/27/2019 9:02 PM [facility] GI bleed 09/28/2019 02:02:00 AM [facility] - 09/28/2019 02:37:00 AM [facility] THROMBOPLASTIN TIME PARTIAL PLASMA/WHOLE BLOOD PARTIA L THROMBOPLASTIN TIME (PTT) Routine 09/27/2019 7:00 PM EST 09/28/2019 12:00 :00 AM [facility] PROTHROMBIN TIME PROTIME INR Routine 09/27/2019 7:00 PM EST 09/28/2019 12:00:00 AM [facility] BLOOD COUNT COMPLETE AUTOMATED CBC AND DIFFERENTIAL Timed 09/27/2019 7:00 PM EST 09/28/2019 12:00:00 AM [facility] BASIC METABOLIC PANEL CALCIUM TOTAL BASIC METABOLIC PANEL Timed 09/27/2019 7:00 PM EST 09/28/2019 12:00:00 AM [facility] GLUCOSE QUANTITATIVE BLOOD XCPT REAGENT STRIP POCT GLUCOSE, DOC KED Routine 09/27/2019 6:17 PM EST 09/27/2019 11:17:00 PM [facility] Plain chest X-ray (procedure) 09/27/2019 12:00:00 AM [facility] CT Abd/pel w/o contrast 09/27/2019 12:00:00 AM [facility] Plain chest X-ray (procedure) 09/27/2019 12:00:00 AM [facility] CT Abd/pel w/o contrast 09/27/2019 12:00:00 AM [facility] Plain chest X-ray (procedure) 09/27/2019 12:00:00 AM E [facility] CT Abd/pel w/o contrast 09/27/2019 12:00:00 AM [facility] POCT GLUCOSE, DOCKED POCT GLUCOSE, DOCKED Routine 09/11/2019 7:59 AM EST 09/11/2019 12:59:00 PM [facility] BLOOD COUNT COMPLETE AUTO&AUTO DIFRNTL WBC COUNT CBC AND DIFFER ENTIAL Routine 09/11/2019 5:02 AM EST 09/11/2019 10:02:00 AM [facility] PHOSPHORUS INORGANIC PHOSPHORUS LEVEL Routine 09/11/2019 5:[address] 09/11/2019 10:02:00 AM [facility] MAGNESIUM MAGNESIUM LEVEL Routine 09/11/2019 5:02 AM EST 09/11/2019 10:02:00 AM [facility] BASIC METABOLIC PANEL CALCIUM TOTAL BASIC METABOLIC PANEL Routi ne 09/11/2019 5:02 AM EST 09/11/2019 10:02:00 AM [facility] POCT GLUCOSE, DOCKED POCT GLUCOSE, DOCKED Routine 09/10/2019 11:51 PM EST 09/11/2019 04:51:00 AM [facility] GLUCOSE QUANTITATIVE BLOOD XCPT REAGENT STRIP POCT GLUCOSE, DOC KED Routine 09/10/2019 4:05 PM EST 09/10/2019 09:05:00 PM [facility] GLUCOSE QUANTITATIVE BLOOD XCPT REAGENT STRIP POCT GLUCOSE, DOC KED Routine 09/10/2019 7:48 AM EST 09/10/2019 12:48:00 PM [facility] BLOOD COUNT COMPLETE AUTO&AUTO DIFRNTL WBC COUNT CBC AND DIFFER ENTIAL Routine 09/10/2019 5:00 AM EST 09/10/2019 10:00:00 AM [facility] PHOSPHORUS INORGANIC PHOSPHORUS LEVEL Routine 09/10/2019 5:[address] 09/10/2019 10:00:00 AM [facility] MAGNESIUM MAGNESIUM LEVEL Routine 09/10/2019 5:00 AM EST 09/10/2019 10:00:00 AM [facility] BASIC METABOLIC PANEL CALCIUM TOTAL BASIC METABOLIC PANEL Routi ne 09/10/2019 5:00 AM EST 09/10/2019 10:00:00 AM [facility] GLUCOSE QUANTITATIVE BLOOD XCPT REAGENT STRIP POCT GLUCOSE, DOC KED Routine 09/10/2019 12:11 AM EST 09/10/2019 05:11:00 AM [facility] GLUCOSE QUANTITATIVE BLOOD XCPT REAGENT STRIP POCT GLUCOSE, DOC KED Routine 09/09/2019 4:13 PM EST 09/09/2019 09:13:00 PM [facility] GLUCOSE QUANTITATIVE BLOOD XCPT REAGENT STRIP POCT GLUCOSE, DOC KED Routine 09/09/2019 8:03 AM EST 09/09/2019 01:03:00 PM [facility] BLOOD COUNT COMPLETE AUTO&AUTO DIFRNTL WBC COUNT CBC AND DIFFER ENTIAL Routine 09/09/2019 3:55 AM EST 09/09/2019 08:55:00 AM [facility] PHOSPHORUS INORGANIC PHOSPHORUS LEVEL Routine 09/09/2019 3:[address] 09/09/2019 08:55:00 AM [facility] MAGNESIUM MAGNESIUM LEVEL Routine 09/09/2019 3:55 AM EST 09/09/2019 08:55:00 AM [facility] BASIC METABOLIC PANEL CALCIUM TOTAL BASIC METABOLIC PANEL Routi ne 09/09/2019 3:55 AM EST 09/09/2019 08:55:00 AM [facility] GLUCOSE QUANTITATIVE BLOOD XCPT REAGENT STRIP POCT GLUCOSE, DOC KED Routine 09/08/2019 4:09 PM EST 09/08/2019 09:09:00 PM [facility] Results ID Date Data Source [id number] 10/27/2020 05:39:50 PM EST [facility] Name Value Range Interpretation Code Description Data Sumaya rce(s) Supporting Document(s) POC GLUCOSE 136 mg/dL (70-99) H [facility] PERFORMED BY CLINICAL STAFF ID Date Data Source [id number] 10/26/2020 03:09:05 PM EST [facility] Name Value Range Interpretation Code Description Data Sumaya rce(s) Supporting Document(s) LIPASE 128 U/L (65-230) [facility] ID Date Data Source [id number] 10/26/2020 03:09:05 PM EST [facility] Name Value Range Interpretation Code Description Data Sumaya rce(s) Supporting Document(s) SODIUM 137 mmol/L (136-145) [facility] POTASSIUM 4.2 mmol/L (3.6-5.2) [facility] CHLORIDE 102 mmol/L (100-108) [facility] CO2 26 mmol/L (22-31) [facility] ANION GAP 9 mmol/L (7-16) [facility] UREA NITROGEN 9 mg/dL (7-24) [facility] CREATININE 0.77 mg/dL (0.60-1.00) [facility] BUN/CREAT RATIO 11.7 RATIO (10.0-20.0) [facility] GLUCOSE 149 mg/dL (70-99) H [facility] CALCIUM 9.6 mg/dL (8.4-10.2) [facility] TOTAL PROTEIN 6.8 g/dL (6.4-8.2) [facility] ALBUMIN 4.1 g/dL (3.5-4.6) [facility] GLOBULIN 2.7 g/dL (2.7-4.3) [facility] ALB/GLOB RATIO 1.5 RATIO [facility] ALKALINE PHOSPHATASE 100 U/L (45-117) [facility] BILIRUBIN,TOTAL 0.5 mg/dL (0.0-1.0) [facility] PLEASE NOTE:Total bilirubin results may be falselyelevated in patients taking Eltrombopag. AST (SGOT) 12 U/L (11-39) [facility] ALT (SGPT) 43 U/L (12-78) [facility] GFR >60 ml/min/1.73m2 (>59) [facility] GFR ( AMER) >60 ml/min/1.73m2 (>59) [facility] GFR INTERPRETATION [facility] --NORMAL KIDNEY FUNCTION OR MILD DISEASE - GFR >OR= 60CHRONIC KIDNEY DISEASE - GFR 15 - 59RENAL FAILURE - GFR <15 Est. GFR calculation based on the MDRDstudy equation, which assumes a steadystate for creatinine. Est. GFR should notbe used for medication dosing. ID Date Data Source [id number] 10/26/2020 02:38:18 PM EST [facility] Name Value Range Interpretation Code Description Data Sumaya rce(s) Supporting Document(s) WBC 10.7 10*3/uL (4.1-11.0) [facility] RBC 4.45 10*6/uL (4.00-5.40) [facility] HGB 12.0 g/dL (12.0-16.0) [facility] HCT 36.1 % (36.0-47.0) [facility] MCV 81.1 fL (80.0-95.0) [facility] MCH 26.9 pg (27.0-32.0) L [facility] MCHC 33.2 g/dL (32.0-36.0) [facility] RDW 21.1 % (10.5-14.5) H [facility] PLT 328 10*3/uL (150-450) [facility] MPV 8.2 fL (7.1-10.7) [facility] ID Date Data Source [id number] 10/26/2020 02:37:23 PM EST [facility] Name Value Range Interpretation Code Description Data Sumaya rce(s) Supporting Document(s) PT 10.5 s (9.2-11.9) [facility] INR 1.00 [facility] SUGGESTED THERAPEUTIC RANGES USING INR F ORSTABILIZED ANTICOAGULATED PATIENTS:STANDARD DOSE THERAPY INR 2.0-3.0 DVT, PE, PREVENT DVT OR EMBOLISMHIGH DOSE THERAPY INR 2.5-3.5 PREVENT EMBOLISM FROM MECHANICAL HEART VALVE ID Date Data Source [id number] 10/26/2020 11:19:25 AM EST [facility] Name Value Range Interpretation Code Description Data Sumaya rce(s) Supporting Document(s) POC GLUCOSE 172 mg/dL (70-99) H [facility] PERFORMED BY CLINICAL STAFF ID Date Data Source [id number] 10/26/2020 10:12:41 AM EST [facility] Name Value Range Interpretation Code Description Data Sumaya rce(s) Supporting Document(s) PT H [facility] DISREGARD RESULTSPOSSIBLE CONTAMINATION/ SUGGEST RECOLLECTION OF SAMPLENOTIFIED MARIPOSA 6S ON 10/26/19 AT 1008 BY [id number] on 10/26 AT 1012: Previously reported as 14.5 INR [facility] DISREGARD RESULTSPOSSIBLE CONTAMINATION/ SUGGEST RECOLLECTION OF SAMPLECorrected on 10/26 AT 1012: Previously reported as 1.41 SUGGESTED THERAPEUTIC RANGES USING INR FOR STABILIZED ANTICOAGULATED PATIENTS: STANDARD DOSE THERAPY INR 2.0 3.0 DVT, PE, PREVENT DVT OR EMBOLISM HIGH DOSE THERAPY INR2.5 3.5 PREVENT EMBOLISM FROM MECHANICAL HEART VALVE ID Date Data Source [id number] 10/27/2020 01:28:15 PM EST [facility] Name Value Range Interpretation Code Description Data Sumaya rce(s) Supporting Document(s) SARS COV2 SOURCE [facility] SARS COV 2 BY PCR [facility] Not Detected INTERPRETIVE INFORMATION: S ARS-CoV-2 (COVID-19) by FAN This test should be ordered for the detection of the 2019 novel coronavirus SARS-CoV-2 in individuals who meet SARS-CoV-2 clinical and/or epidemiological criteria. The Coronavirus SARS-CoV-2 (COVID-19) by nucleic acid amplification test is for in vitro diagnostic use under the FDA Emergency Use Authorization (EUA) for US laboratories certified under CLIA to perform high complexity tests. This test has not been FDA cleared or approved. In compliance with this authorization, please visit [email or web address] for more information and to access the applicable information sheets. Not Detected results do not rule out the presence of PCR inhibitors in the patient specimen or assay specific nucleic acid in concentrations below the level of detection by the assay. Detected results are indicative of the presence of SARS-CoV-2 RNA. Due to the complexity of nucleic acid amplification methodologies, there may be a risk of false positive results. Clinical correlation with patient history and other diagnostic information is necessary to determine patient infection status. Reliable results are dependent on adequate specimen collection, transport, storage, and handling. Performed by [facility], [address] [place] [address],[place] [id number] [email or web address], Kirti Noriega MD, Lab. Director ID Date Data Source [id number] 10/25/2020 09:15:00 AM EST [facility] Name Value Range Interpretation Code Description Data Sumaya rce(s) Supporting Document(s) SARS-CoV-2 by FAN Not Detected [facility] This lab was ordered by [facility] and reported by [employer]. ID Date Data Source [id number] 10/23/2020 04:46:00 PM EST [facility] DATE OF EXAM: 10/23/2020Upper GI SINGLE Contr W Sm Bowel INDICATION: NAUSEA / VOMITING TECHNIQUE: Single contrast upper GI Study with small bowel follow- through was performed via injection of 50 mL Omnipaque 300 contrast through the patient's indwelling jejunostomy tube. [employer] images were obtained. Fluoroscopy Time: 0.5 minutes.Number of images: 10 COMPARISON: CT abdomen pelvis 10/17/2020. FINDINGS: Single AP view review specialist image of the abdomen was obtained. Fusion of the lower lumbar spine. Evidence of gastric bypass and cholecystectomy. Contrast easily injected and flowed into the jejunum. No evidence of leakage or obstruction. Serial overhead radiographs were performed at 30 minutes, 60 and 120 minutes. At which time contrast was visualized in the ascending colon. No bowel obstruction or obvious internal hernia or volvulus. No intussusception is evident. IMPRESSION: Patent, nonobstructed jejunostomy tube. No bowel obstruction or volvulus. Professional interpretation performed at [facility] .End of diagnostic report for accession: [id number] Interpreted: Luna Lay MDTranscribed: 10/23/2020 04:43 PMSigned: 10/23/2020 04:46 PM Luna Lay MD -- MR N: [id number] [facility] ACC # [id number] BILL # [id number] Name Value Range Interpretation Code Description Data Sumaya rce(s) Supporting Document(s) ID Date Data Source [id number] 10/22/2020 06:27:08 PM EST [facility] Name Value Range Interpretation Code Description Data Sumaya rce(s) Supporting Document(s) COLOR [facility] APPEARANCE [facility] SPEC GRAV URINE 1.002 (1.003-1.030) L [facility] PH URINE 6.5 (5.0-7.5) [facility] LEUK ESTERASE (NEG) [facility] NITRITE URINE (NEG) [facility] PROTEIN URINE (NEG) A [facility] GLUCOSE URINE (NEG) [facility] KETONE URINE (NEG) [facility] UROBILINOGEN 0.2 mg/dL (0-1.0) [facility] BILIRUBIN URINE (NEG) [facility] BLOOD/HGB URINE 3+ (NEG) A [facility] URINE WBC (0-5) [facility] URINE RBC (0-2) [facility] EPITHELIAL CELLS 1+ [HPF] [facility] ID Date Data Source [id number] 10/22/2020 09:20:55 AM EST [facility] Name Value Range Interpretation Code Description Data Sumaya rce(s) Supporting Document(s) SODIUM 141 mmol/L (136-145) [facility] POTASSIUM 4.3 mmol/L (3.6-5.2) [facility] CHLORIDE 109 mmol/L (100-108) H [facility] CO2 26 mmol/L (22-31) [facility] ANION GAP 6 mmol/L (7-16) L [facility] UREA NITROGEN 16 mg/dL (7-24) [facility] CREATININE 0.72 mg/dL (0.60-1.00) [facility] BUN/CREAT RATIO 22.2 RATIO (10.0-20.0) H [facility] GLUCOSE 100 mg/dL (70-99) H [facility] CALCIUM 8.2 mg/dL (8.4-10.2) L [facility] TOTAL PROTEIN 5.8 g/dL (6.4-8.2) L [facility] ALBUMIN 3.3 g/dL (3.5-4.6) L [facility] GLOBULIN 2.5 g/dL (2.7-4.3) L [facility] ALB/GLOB RATIO 1.3 RATIO [facility] ALKALINE PHOSPHATASE 81 U/L (45-117) [facility] BILIRUBIN,TOTAL 0.6 mg/dL (0.0-1.0) [facility] PLEASE NOTE:Total bilirubin results may be falselyelevated in patients taking Eltrombopag. AST (SGOT) 31 U/L (11-39) [facility] ALT (SGPT) 61 U/L (12-78) [facility] GFR >60 ml/min/1.73m2 (>59) [facility] GFR ( AMER) >60 ml/min/1.73m2 (>59) [facility] GFR INTERPRETATION [facility] --NORMAL KIDNEY FUNCTION OR MILD DISEASE - GFR >OR= 60CHRONIC KIDNEY DISEASE - GFR 15 - 59RENAL FAILURE - GFR <15 Est. GFR calculation based on the MDRDstudy equation, which assumes a steadystate for creatinine. Est. GFR should notbe used for medication dosing. ID Date Data Source [id number] 10/22/2020 08:52:14 AM EST [facility] Name Value Range Interpretation Code Description Data Sumaya rce(s) Supporting Document(s) WBC 3.9 10*3/uL (4.1-11.0) L [facility] RBC 3.83 10*6/uL (4.00-5.40) L [facility] HGB 10.5 g/dL (12.0-16.0) L [facility] HCT 31.6 % (36.0-47.0) L [facility] MCV 82.4 fL (80.0-95.0) [facility] MCH 27.3 pg (27.0-32.0) [facility] MCHC 33.1 g/dL (32.0-36.0) [facility] RDW 21.4 % (10.5-14.5) H [facility] PLT 235 10*3/uL (150-450) [facility] MPV 8.4 fL (7.1-10.7) [facility] NEUT % 64.0 % (35.0-75.0) [facility] LYMPH % 17.5 % (16.0-52.0) [facility] MONO % 12.2 % (0.0-8.0) H [facility] EOS % 5.7 % (0.0-5.0) H [facility] BASO % 0.6 % (0.0-4.0) [facility] NEUT # 2.5 10*3/uL (1.8-7.7) [facility] LYMPH # 0.7 10*3/uL (1.2-4.8) L [facility] MONO # 0.5 10*3/uL (0.0-0.8) [facility] Eosinophils [#/volume] in Blood by Automated count 0.2 10*3/uL (0.0-0 .5) [facility] BASO # 0.0 10*3/uL (0.0-0.2) [facility] ID Date Data Source [id number] 10/21/2020 07:56:18 AM EST [facility] Name Value Range Interpretation Code Description Data Sumaya rce(s) Supporting Document(s) MAGNESIUM 2.3 mg/dL (1.7-2.4) [facility] ID Date Data Source [id number] 10/21/2020 07:56:18 AM EST [facility] Name Value Range Interpretation Code Description Data Sumaya rce(s) Supporting Document(s) PHOSPHORUS 3.8 mg/dL (2.5-4.5) [facility] ID Date Data Source [id number] 10/21/2020 07:56:18 AM EST [facility] Name Value Range Interpretation Code Description Data Sumaya rce(s) Supporting Document(s) SODIUM 142 mmol/L (136-145) [facility] POTASSIUM 4.5 mmol/L (3.6-5.2) [facility] CHLORIDE 113 mmol/L (100-108) H [facility] CO2 24 mmol/L (22-31) [facility] ANION GAP 5 mmol/L (7-16) L [facility] UREA NITROGEN 20 mg/dL (7-24) [facility] CREATININE 0.64 mg/dL (0.60-1.00) [facility] BUN/CREAT RATIO 31.3 RATIO (10.0-20.0) H [facility] GLUCOSE 146 mg/dL (70-99) H [facility] CALCIUM 7.8 mg/dL (8.4-10.2) L [facility] TOTAL PROTEIN 5.0 g/dL (6.4-8.2) L [facility] ALBUMIN 2.8 g/dL (3.5-4.6) L [facility] GLOBULIN 2.2 g/dL (2.7-4.3) L [facility] ALB/GLOB RATIO 1.3 RATIO [facility] ALKALINE PHOSPHATASE 70 U/L (45-117) [facility] BILIRUBIN,TOTAL 0.4 mg/dL (0.0-1.0) [facility] PLEASE NOTE:Total bilirubin results may be falselyelevated in patients taking Eltrombopag. AST (SGOT) 30 U/L (11-39) [facility] ALT (SGPT) 62 U/L (12-78) [facility] GFR >60 ml/min/1.73m2 (>59) [facility] GFR ( AMER) >60 ml/min/1.73m2 (>59) [facility] GFR INTERPRETATION [facility] --NORMAL KIDNEY FUNCTION OR MILD DISEASE - GFR >OR= 60CHRONIC KIDNEY DISEASE - GFR 15 - 59RENAL FAILURE - GFR <15 Est. GFR calculation based on the MDRDstudy equation, which assumes a steadystate for creatinine. Est. GFR should notbe used for medication dosing. ID Date Data Source [id number] 10/21/2020 07:34:07 AM EST [facility] Name Value Range Interpretation Code Description Data Sumaya rce(s) Supporting Document(s) WBC 4.1 10*3/uL (4.1-11.0) [facility] RBC 3.97 10*6/uL (4.00-5.40) L [facility] HGB 10.7 g/dL (12.0-16.0) L [facility] HCT 32.9 % (36.0-47.0) L [facility] MCV 82.7 fL (80.0-95.0) [facility] MCH 27.0 pg (27.0-32.0) [facility] MCHC 32.6 g/dL (32.0-36.0) [facility] RDW 21.7 % (10.5-14.5) H [facility] PLT 251 10*3/uL (150-450) [facility] MPV 8.1 fL (7.1-10.7) [facility] ID Date Data Source [id number] 10/24/2020 03:48:21 PM EST [facility] [address] [address]Trm# SURGICAL PATHOLOGY REPORTPatient Name:NI DIAZ:1980Received:10/20/2020Accession #:[id number](s) Received: A: Biopsy antrum, r/o H pyloriClinical Diagnosis and History: {Not Provided}DIAGNOSIS:GASTRIC BIOPSY, ANTRUM BENIGN GASTRIC MUCOSA, ANTRAL TYPE, WITH CHANGESOF REACTIVE GASTROPATHY. NO HELICOBACTER IDENTIFIED. GROSS DESCRIPTION: Specimen received in formalin labeled "biopsy antrum" are two irregularpink-paniagua portions of soft tissue measuring 0.3 cm and 0.4 cm in greatestdimension which are submitted in toto for microscopic examination. (1block) jglkas/Rafaported: 10/24/2020Electronically Signed Out By Moises Song M.D. jzwPathology Associates [place] [address]Technical component performed at [facility], Histopathology, [address] [place] [address], [address].Reported at [facility], [address] [place] [address], [facility].This report may include immunohistochemical or in-situ hybridizationresults. Testing was developed and the performance characteristicsdetermined by [facility], as required byCLIA '88. The FDA has determined that approval for spec [facility] use is notnecessary for clinical use. The quality of Hematoxylin and Eosin stainsand as applicable, for all immunohistochemical and/or special stains,including positive and negative controls, were reviewed and consideredappropriate.ICD codes: Z98.84CPT4 codes: A: 28319U Name Value Range Interpretation Code Description Data Sumaya rce(s) Supporting Document(s) ID Date Data Source [id number] 10/21/2020 10:09:00 AM [place], [place] [address]PATIENT NAME: COREY DIAZ OF : 1980REPORT: OPERATIONPATIENT NUMBER: [id number] STATUS: IPMEDICAL RECORD NUMBER: [id number] OF ADMISSION: 10/17/2020DATE OF DISCHARGE:ROOM: 00DATE OF PROCEDURE: 10/20/2020PREOPERATIVE DIAGNOSES: Nausea, vomiting, and epigastric abdominal pain robert patient with a complex bariatric history.POSTOPERATIVE DIAGNOSES: Nausea, vomiting, and epigastric abdominal painin a patient with a complex bariatric history.PROCEDURE PERFORMED: Upper endoscopy with antral biopsies.SURGEON: Adrian Son MDANESTHETIST: *------*ESTIMATED BLOOD LOSS: Minimal.BRIEF INDICATIONS FOR PROCEDURE: Briefly, Ni is a 40-year-old whitefemale. She underwent a gastric bypass more than 10 years ago elsewhere. She has had multiple problems after her surgery including episodes ofnausea, vomiting, and abdominal pain associated with marginal ulcers. 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 [facility]. Ultimately, thepatient decided to follow with Dr. Durbin *------* at the [facility] where she underwent a reversal of her gastric bypass, resection ofa portion of her Nadege limb, and jejunostomy tube. The patient now presentsto the hospital with continued persistent abdominal pain, nausea, andvomiting. CT scan done elsewhere at [facility] showed no acutefindings suggestive of the cause for her abdominal pain and she currentlycontinues to have severe abdominal pain with nausea and vomiting in a womanwho has had multiple marginal ulcers and history of complex bariatricsurgery in the past.PROCEDURE: After informed consent was obtained, the patient was taken tothe endoscopy suite. A time-out was performed. She was placed in the leftlateral decubitus position with a bite block in place. Moderate sedationwas achieved and the endoscope was introduced. After an adequate level ofsedation was achieved, we were able to intubate the esophagus. The upper,middle, lower thirds of the esophagus appeared to be normal. The loweresophageal sphincter appeared to be intact. There was no evidence ofesophagitis, esophageal ulceration, Turner's esophagus, or significanthiatal hernia. Upon entering the stomach, it became immediately obviousthat the patient had a reversal, the gastric pouch was seen atapproximately the 2 o'clock position on the scope. At approximately to 8to 9 o'clock position of the scope, there was a large gastrostomy betweenthe gastric pouch in the gastric remnant. There was mild narrowing in themidportion of the stomach and the antrum appeared to be normal. I was ableto traverse the pylorus and the duodenal bulb, second and third portions ofthe duodenum and the fourth portion of the duodenum all appeared to benormal. It should be noted that I saw no ulcerations, no bleeding, and nodefinitive pathology. Within the proximal stomach near thegastrogastrostomy and in the area of the fundus of the stomach, there was alarge amount of bilious fluid and the patient has reported significantproblems with bilious vomiting for several months now. However, there wasno evidence of a distal obstruction and no clear evidence why the patienthas bile reflux into the stomach at this time. There was no evidence ofany distal obstruction on the CT scan or on the endoscopy performed today. Biopsies of the antrum were performed for H. pylori at this time. Idecompressed the small intestine and stomach, removed the tube, and thepatient tolerated the procedure well. She was taken to recovery room instable condition.DICTATED BY: Adrian Son, MDDictated: 10/20/2020 14:29DT: 10/20/2020 14:37Job #: [id number]: [facility] computer generated reports are not confirmed orauthenticated unless they are signed by the providerElectronically Authenticated by:ADRIAN SON MD On 10/21/2020 10:09 AM EST Name Value Range Interpretation Code Description Data Sumaya rce(s) Supporting Document(s) ID Date Data Source [id number] 10/25/2020 02:42:50 AM EST [facility] Name Value Range Interpretation Code Description Data Sumaya rce(s) Supporting Document(s) SARS COV2 SOURCE [facility] SARS COV 2 BY PCR [facility] Not Detected INTERPRETIVE INFORMATION: S ARS-CoV-2 (COVID-19) by FAN This test should be ordered for the detection of the 2019 novel coronavirus SARS-CoV-2 in individuals who meet SARS-CoV-2 clinical and/or epidemiological criteria. The Coronavirus SARS-CoV-2 (COVID-19) by nucleic acid amplification test is for in vitro diagnostic use under the FDA Emergency Use Authorization (EUA) for US laboratories certified under CLIA to perform high complexity tests. This test has not been FDA cleared or approved. In compliance with this authorization, please visit [email or web address] for more information and to access the applicable information sheets. Not Detected results do not rule out the presence of PCR inhibitors in the patient specimen or assay specific nucleic acid in concentrations below the level of detection by the assay. Detected results are indicative of the presence of SARS-CoV-2 RNA. Due to the complexity of nucleic acid amplification methodologies, there may be a risk of false positive results. Clinical correlation with patient history and other diagnostic information is necessary to determine patient infection status. Reliable results are dependent on adequate specimen collection, transport, storage, and handling. Performed by [facility], [facility] [place] [place] [address] [email or web address], Kirti Noriega MD, Lab. Director ID Date Data Source [id number] 10/19/2020 10:23:00 AM [facility] [address] [place] [address] PHONE: [phone] FAX: [phone] Name .................. : BASILIO Torres Acct Number.................. : [id number] ROOM. ................. : TR-03 MR Number ................... : [id number] Stay type ............. : E/R Discharge Date......... ... : Admit Date ......... : 10/17/20 Admit Phys .................... : [facility] Date of ....... : 1980 Family Phys ................... : TAJKHOI MELCHOR Phone .................. : [phone] Age ................................ : 40 Film# .................. .:[id number] Sex ................................. : F Unsigned transcriptions are preliminary reports and do not represent a medical or legal document CT ABD & PELVIS W/ IV ONLY [id number] COMPLETE:10/17/20 13:33 KJE 1023 Reason(s): right sided abdominal pain CT SCAN OF THE ABDOMEN & PELVIS WITH IV CONTRAST, 10/17/20: INDICATION: Right-sided abdominal pain. Comparison is made to prior study from 07/30/2020. FINDINGS: Lung bases shows atelectasis versus scarring at the left lung base. Gallbladder is surgically absent. The liver, spleen, pancreas, and adrenal glands appear unremarkable. Bilateral kidneys show no hydronephrosis or nephrolithiasis. There is a G tube present with its tip in the stomach, unchanged since prior study. The appendix is visualized and appears unremarkable. No free fluid is identified in the pelvis. Urinary bladder appears unremarkable. In the subcutaneous soft tissues of the right lower quadrant, there are new areas of air and soft tissue density, largest measuring approximately 2 cm. After discussion with the ordering physician, the patient has been giving herself injections of Lovenox at this location, which likely accounts for the findings on the CT imaging. An underlying infectious process cannot be completely excluded. IMPRESSION: Lung bases are clear. Gallbladder is surgically absent. Appendix is normal. G tube is present and in good position. No free fluid is identified in the pelvis. Subcutaneous areas of increased intensity and air in the right lower quadrant may represent underlying infectious process/developing abscess. Clinical correlation is recommended. While performing the above CT examination, radiation dose reduction was accomplished utilizing automated exposure control, adjusting of the mA and kV based on the patient's body size and/or the use of imperative reconstructive techniques. CT dose 1013.9 mGycm. Contrast agent in mL: 75 mL Isovue 370 Page 1 of 2 [facility] [address] [place] [address] PHONE: [phone] FAX: [phone] Name .................. : BASILIO Torres Acct Number.................. : [id number] ROOM. ................. : TR-03 MR Number ................... : [id number] Stay type ............. : E/R Discharge Date......... ... : Admit Date ......... : 10/17/20 Admit Phys .................... : LORI Date of ....... : 1980 Family Phys ................... : MITA ROCHE Phone .................. : [phone] Age ................................ : 40 Film# .................. .:[id number] Sex ................................. : F Unsigned transcriptions are preliminary reports and do not represent a medical or legal document CT ABD & PELVIS W/ IV ONLY [id number] COMPLETE:10/17/20 13:33 KJE 1023 Reason(s): right sided abdominal pain Method of admin istration: Intravenous Examination dictated by TROY Cross. Examination was reviewed with Kaden Carrillo MD, radiologist at the time of this dictation. Electronically Reviewed and Signed By Kaden Carrillo MD , 10/19/20 10:23, KGG Transcribe Initials: SSR, Transcribe Date: 10/17/20 13:56, Dictation Date: Copy for: EMERGENCY DEPT via modem Copy for: 710 MED REC DISCHARGED Page 2 of 2 Name Value Range Interpretation Code Description Data Sumaya rce(s) Supporting Document(s) ID Date Data Source [id number] 10/19/2020 08:58:00 AM EST [facility] DATE OF EXAM: 10/19/2020CHEST RADIOGRAPH , SINGLE VIEW INDICATION: CENTRAL LINE PLACEMENT TECHNIQUE: Upright AP Portable view of the chest. COMPARISON: 09/29/2018. FINDINGS: There is a right sided CVC with its tip reaching mid SVC. Degenerative changes are seen throughout the spine. There is no evidence of pleural disease. The lungs are clear. The heart and mediastinal contours are unremarkable. IMPRESSION: Right sided CVC with tip reaching mid SVC. Professional interpretation performed at [facility] .End of diagnostic report for accession: [id number] Interpreted: Carmen Frank DOTranscribed: 10/19/2020 08:57 AMSigned: 10/19/2020 08:58 AM Carmen Frank DO [facility] # [id number] [facility] # [id number] Name Value Range Interpretation Code Description Data Sumaya rce(s) Supporting Document(s) ID Date Data Source [id number] 10/19/2020 08:14:00 [place] [address] RESPIRATORY CARE REPORT ==== ---------NAME------- NUMBER SEX AGE ADMIT DISC. XRAY# F/C ANGELAJOE Torres [id number] F 40 10/17/20 10/17/20 [id number] BB2 E/R DATE OF : 1980 M/R# [id number] #: [id number] TR-03 LOCATION: EMERGENCY DEPT EKG 77136 COMP LETE:10/18/20 06:37 ED 70207 PHYSICIAN: LORI Name Value Range Interpretation Code Description Data Sumaya rce(s) Supporting Document(s) ID Date Data Source [id number] 10/19/2020 08:09:00 AM EST [facility] Name Value Range Interpretation Code Description Data Sumaya rce(s) Supporting Document(s) SARS-CoV-2 by FAN WALLS This lab was ordered by [facility] and reported by [employer]. ID Date Data Source [id number] 10/19/2020 06:44:48 AM EST [facility] Name Value Range Interpretation Code Description Data Sumaya rce(s) Supporting Document(s) MAGNESIUM 2.0 mg/dL (1.7-2.4) [facility] ID Date Data Source [id number] 10/19/2020 06:44:48 AM EST [facility] Name Value Range Interpretation Code Description Data Sumaya rce(s) Supporting Document(s) SODIUM 137 mmol/L (136-145) [facility] POTASSIUM 4.4 mmol/L (3.6-5.2) [facility] CHLORIDE 104 mmol/L (100-108) [facility] CO2 25 mmol/L (22-31) [facility] ANION GAP 8 mmol/L (7-16) [facility] UREA NITROGEN 8 mg/dL (7-24) [facility] CREATININE 0.54 mg/dL (0.60-1.00) L [facility] BUN/CREAT RATIO 14.8 RATIO (10.0-20.0) [facility] GLUCOSE 115 mg/dL (70-99) H [facility] CALCIUM 8.7 mg/dL (8.4-10.2) [facility] GFR >60 ml/min/1.73m2 (>59) [facility] GFR ( AMER) >60 ml/min/1.73m2 (>59) [facility] GFR INTERPRETATION [facility] --NORMAL KIDNEY FUNCTION OR MILD DISEASE - GFR >OR= 60CHRONIC KIDNEY DISEASE - GFR 15 - 59RENAL FAILURE - GFR <15 Est. GFR calculation based on the MDRDstudy equation, which assumes a steadystate for creatinine. Est. GFR should notbe used for medication dosing. ID Date Data Source [id number] 10/19/2020 06:29:46 AM EST [facility] Name Value Range Interpretation Code Description Data Sumaya rce(s) Supporting Document(s) WBC 6.5 10*3/uL (4.1-11.0) [facility] [place] RBC 3.88 10*6/uL (4.00-5.40) L [facility] HGB 10.5 g/dL (12.0-16.0) L [facility] HCT 31.7 % (36.0-47.0) L [facility] MCV 81.5 fL (80.0-95.0) [facility] MCH 27.1 pg (27.0-32.0) [facility] MCHC 33.3 g/dL (32.0-36.0) [facility] RDW 21.7 % (10.5-14.5) H [facility] PLT 271 10*3/uL (150-450) [facility] MPV 7.7 fL (7.1-10.7) [facility] NEUT % 79.8 % (35.0-75.0) H [facility] LYMPH % 8.8 % (16.0-52.0) L [facility] MONO % 11.1 % (0.0-8.0) H [facility] EOS % 0.0 % (0.0-5.0) [facility] BASO % 0.3 % (0.0-4.0) [facility] NEUT # 5.2 10*3/uL (1.8-7.7) [facility] LYMPH # 0.6 10*3/uL (1.2-4.8) L [facility] MONO # 0.7 10*3/uL (0.0-0.8) [facility] Eosinophils [#/volume] in Blood by Automated count 0.0 10*3/uL (0.0-0 .5) [facility] BASO # 0.0 10*3/uL (0.0-0.2) [facility] ID Date Data Source [id number] 10/18/2020 05:15:45 AM EST [facility] Name Value Range Interpretation Code Description Data Sumaya rce(s) Supporting Document(s) SODIUM 144 mmol/L (136-145) [facility] POTASSIUM 3.1 mmol/L (3.6-5.2) L [facility] CHLORIDE 111 mmol/L (100-108) H [facility] CO2 23 mmol/L (22-31) [facility] ANION GAP 10 mmol/L (7-16) [facility] UREA NITROGEN 12 mg/dL (7-24) [facility] CREATININE 0.57 mg/dL (0.60-1.00) L [facility] BUN/CREAT RATIO 21.1 RATIO (10.0-20.0) H [facility] GLUCOSE 142 mg/dL (70-99) H [facility] CALCIUM 9.0 mg/dL (8.4-10.2) [facility] TOTAL PROTEIN 6.3 g/dL (6.4-8.2) L [facility] ALBUMIN 3.8 g/dL (3.5-4.6) [facility] GLOBULIN 2.5 g/dL (2.7-4.3) L [facility] ALB/GLOB RATIO 1.5 RATIO [facility] ALKALINE PHOSPHATASE 89 U/L (45-117) [facility] BILIRUBIN,TOTAL 0.5 mg/dL (0.0-1.0) [facility] PLEASE NOTE:Total bilirubin results may be falselyelevated in patients taking Eltrombopag. AST (SGOT) 9 U/L (11-39) L [facility] ALT (SGPT) 23 U/L (12-78) [facility] GFR >60 ml/min/1.73m2 (>59) [facility] GFR ( AMER) >60 ml/min/1.73m2 (>59) [facility] GFR INTERPRETATION [facility] --NORMAL KIDNEY FUNCTION OR MILD DISEASE - GFR >OR= 60CHRONIC KIDNEY DISEASE - GFR 15 - 59RENAL FAILURE - GFR <15 Est. GFR calculation based on the MDRDstudy equation, which assumes a steadystate for creatinine. Est. GFR should notbe used for medication dosing. ID Date Data Source [id number] 10/18/2020 04:51:03 AM EST [facility] Name Value Range Interpretation Code Description Data Sumaya rce(s) Supporting Document(s) WBC 16.6 10*3/uL (4.1-11.0) H [facility] RBC 4.24 10*6/uL (4.00-5.40) [facility] [facility] HGB 11.1 g/dL (12.0-16.0) [facility] HCT 34.6 % (36.0-47.0) [facility] MCV 81.7 fL (80.0-95.0) [facility] MCH 26.2 pg (27.0-32.0) [facility] MCHC 32.1 g/dL (32.0-36.0) [facility] RDW 22.3 % (10.5-14.5) [facility] PLT 380 10*3/uL (150-450) [facility] MPV 7.1 fL (7.1-10.7) [facility] ID Date Data Source [id number] 10/23/2020 11:53:50 AM EST [facility] SPECIMEN DESCRIPTION PERIPHERALSP ECIAL REQUESTS NONECULTURE RESULTS NO GROWTH 6 DAYSREPORT STATUS FINAL 10/23/2020 Name Value Range Interpretation Code Description Data Sumaya rce(s) Supporting Document(s) ID Date Data Source [id number] 10/22/2020 11:49:00 AM [place] [id number] NAME: COREY DIAZ OF : 1980REPORT: ADMISSION NOTEPATIENT NUMBER: [id number] STATUS: IPMEDICAL RECORD NUMBER: [id number] OF ADMISSION: 10/17/2020ROOM: [id number] COMPLAINT: Abdominal pain.HISTORY OF PRESENT ILLNESS: Ms. Diaz is a 40-year-old female withhistory of bariatric surgery 10 [place] back [place], who hasmalabsorption syndrome since then, [facility].Patient has been having intractable abdominal pain since yesterday. Didcomplain of some nausea and also had diarrhea, however, denied anyvomiting, hematemesis, or melena. Denied any high-grade fever or chills. Patient said that she was told that she may have pneumonia and took acouple of doses of Augmentin, never completed the dose. Patient does havehistory of bariatric surgery. I did ask the emergency medicine providerand would like to speak to bariatric surgeon before patient could beadmitted to the hospital. I did review the case with Dr. Son and knows the patient well and at this point in time there is not muchto be done; however, he recommended to start the patient on Protonix dripand he will see the patient in consult in a.m. Abdominal pain isexcruciating in nature and 10/10 on the scale of severity. Denied anyaggravating factors. Relieved by narcotics for short period of time. Didcomplain of nausea. Denied any vomiting.PAST MEDICAL HISTORY: Positive for anemia, back injury, gastroparesis,sepsis, UTI, status epilepticus, lung disease, malabsorption syndrome,pulmonary embolism, hypoxia.PAST SURGICAL HISTORY: Positive for bariatric surgery, bowel resectionsurgery, cholecystectomy, J-tube placement, hysterectomy. Patient hasright-sided Port-A-Cath through which she gets TPN. As per the patient,her TPN catheter has been infected almost 10 times in the past and requiredreplacements.SOCIAL HISTORY: Denies any history of nicotine, alcohol, or illicit drugabuse. No history of recent travel. Patient is a carrier of *------*.FAMILY HISTORY: Reviewed with patient, not relevant to her presentproblem.ALLERGIES: Levaquin, sulfonamides, and NSAIDs.REVIEW OF SYSTEMS: Thirteen systems were reviewed, negative except forabove.PHYSICAL EXAMINATION: On examination, a 40-year-old female who is lying inbed. Complains of diffuse abdominal pain, stating that she is notcomfortable. Vital signs: Blood pressure 133/75, pulse 82, respirat oryrate 18, oxygen saturation 97 percent on room air. Head was atraumatic andnormocephalic. Pupils were equal and reactive. Neck: Supple. No JVD. No clubbing or cyanosis. Skin: No rash. Chest: Air entry bilaterallyequal. No wheeze, no rales. No murmur appreciated. Patient has a deepright-sided catheter present, which does not appear to be infected. Abdomen: J-tube in situ. Diffuse abdominal tenderness present. Bowelsounds are present. No organomegaly appreciated. 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 Moving all four limbs. Lymphatic system: No lymphadenopathy appreciated. Musculoskeletal system: Range of motion intact. No obvious deformitynoted.INVESTIGATIONS: CT of the abdomen and pelvis was done at [facility]. Findings: Her lung bases are clear. Gallbladder is surgicallyabsent. Appendix is normal. J-tube is present in good position. No freefluid identified. CAT scan also revealed a subcutaneous area of increased *------* intensity and air in the right lower quadrant may be present,questionable infectious process/developing abscess *------*. WBC count11,000, hemoglobin of 13.4, hematocrit 41.6, platelet count 406,000. Sodium 140, potassium 3.6, chloride of 102, bicarb of 24, glucose of 197,blood urea nitrogen 20, creatinine of 0.6. AST 19, ALT 22, *------* 14. Lipase 29. Serum was negative. INR 0.91.ASSESSMENT AND PLAN:1. Non-intractable abdominal pain, history of bariatric surgery/malabsorption syndrome. Bariatric surgeon, Dr. Son, was consulted by the ER provider. He will see the patient in consult. Recommended to start patient on Protonix drip. I did review the CAT scan report from the patient's record from outpatient hospital. It did mention concern for possible infectious etiology in right lower quadrant/abscess. We will draw blood cultures and start patient on IV antibiotics. For pain, we will continue morphine and Zofran p.r.n. We will hydrate patient with normal saline at 100 mL per hour. Patient is on TPN at home. We will try to get more information about the patient's TPN in the morning and eventually restart her on TPN therapy.2. DVT prophylaxis. We will start patient on Lovenox.3. Discussed management plan with patient and answered all of her questions.LENGTH OF STAY: More than two inpatient days.DICTATED BY: FREDERIC Danielsictated: 10/17/2020 22:06DT: 10/17/2020 22:14Job #: [id number]: Cait Wyatt MdNOTE: [facility] computer generated reports are notconfirmed or authenticated unless they are signed by the providerElectronically Authenticated by:MARY VERMA MD On 10/22/2020 11:49 AM EST Name Value Range Interpretation Code Description Data Sumaya rce(s) Supporting Document(s) ID Date Data Source [id number] 10/17/2020 11:18:00 AM EST [facility] 1 OrderSheet [facility] Emergency Department [address] [place] [address] Phone #: ext- [phone] 10/17/2020 11:14 Patient: NI DIAZ Sex: F : 1980 Age: 40yWEIGHT:69.8 kg (S) HEIGHT:67 inches (S) BMI:24.1ALLERGIES: Levaquin, NSAID, Sulfa AntibioticsCHIEF COMPLAINT: abdominal painDIAGNOSIS: Abdominal pain, Diarrhea, ProblemLAB ORDERSOrder Description Priority Entered Acknowledged InitialedCBC w Diff STAT 11:31 10/17/2020 12:03 Lori Thomason Victoria Rachel R.N. ;CMP STAT 11:31 10/17/2020 12:03 Lori Thomason Victoria Rachel R.N. ;Lipase STAT 11:31 10/17/2020 12:03 Lori Thomason Victoria Rachel R.N. ;Urinalysis (Clean STAT 11:31 10/17/2020 14:40 Paddy,Catch) Marcelle Sandoval R.N. ;Beta-HCG, Qual STAT 11:31 10/17/2020 12:03 Paddy,Serum Marcelle Sandoval R.N. ;PT/INR STAT 11:31 10/17/2020 12:03 Lori Thomason Victoria Rachel R.N. ;Amylase STAT 11:31 10/17/2020 12:03 Lori Thomason Victoria Rachel R.N. ;Lactic Acid STAT 11:32 10/17/2020 12:03 Lori Thomason Victoria Rachel R.N. ;C Difficile Toxin STAT 13:31 10/17/2020 Cancelled: Unable to Collect 17:42Screen Marcelle Sandoval Rachel R.N. ;Lactic Acid STAT 13:57 10/17/2020 14:40 Lori Thomason Victoria Rachel R.N. ;Blood Culture STAT 13:57 10/17/2020 14:40 Paddy, 2 OrderSheet [facility] Emergency Department [address] [place] [address] Phone #: ext- [phone] 10/17/2020 11:14 Patient: NI DIAZ Sex: F : 1980 Age: 89uj89q X2 (Sched Marcelle Sandoval R.N.13:57 10/17/2020) ;Blood Culture STAT 13:57 10/17/2020 15:12 Paddy,q10m X2 (Sched Marcelle Sandoval R.N.14:07 10/17/2020) ;COVID-19 CAH STAT 15:13 10/17/2020 15:16 Paddy,(Symptomatic as Marcelle Sandoval R.N.Defined by CDC) ;(10/17/2020) (FirstTest) (NotHospitalized) (Not) (NotResident inCongregate CareSetting) (NotEmployed inHealthcare Setting)DIAGNOSTIC STUDY ORDERSOrder Description Priority Entered Acknowledged InitialedAbdomen Multiview STAT 11:31 10/17/2020 Initialed: 11:45 Marcelle Sandoval(Oxygen?(No)) Marcelle Sandoval Cancelled: Wrong Order 11:45 ; Marcelle Sandoval Reason for Study: hx of bowel resectionCT Abd PEL W/ IV STAT 11:45 10/17/2020 12:47 Paddy,Contrast Only Marcelle SandovalNCarmelo(Oxygen?(No)) ;(IV?(Yes)) Reason for Study: right sided abdominal painMEDICATION/IV/DRIP/FLUID ORDERSOrder Description Priority Entered Acknowledged InitialedNS IV : Bolus 1000 11:31 10/17/2020 11:55 Paddy,mL, then 150 mL/hr Marcelle Sandoval R.N. ;Ofirmev IV 1000 mg 11:31 10/17/2020 12:03 Paddy,(NOW x1, Infuse Marcelle Sandoval R.N.over 15 minutes) ;Phenergan IV 25 11:32 10/17/2020 12:03 Paddy,mg (NOW x1, HIGH Marcelle Sandoval R.N.ALERT ;MEDICATION,NOW) 3 OrderSheet [facility] Emergency Department [address] [place] [address] Phone #: ext- [phone] 10/17/2020 11:14 Patient: NI DIAZ Sex: F : 1980 Age: 40yBentyl PO 10 mg 11:38 10/17/2020 Initialed: 11:48 Moises Thomason R.N., Victoria Administered: 11:48 Bentyl (Dicyclomine ; HCl) PO Tablets 10 mg given. Allergies verified and confirmed 5 rights. Information reviewed with patient including reason for taking this medication. Verbalizes understanding. Refused: 11:48 Bentyl PO 10 mg was refused by patient because of nausea. Reason for ordering with alerts: Benefits outweigh risks -- 11:38 10/17/2020 Marcelle SandovalDilaudid IVP 1 mg 12:29 10/17/2020 12:45 Paddy,(NOW x1, HIGH Marcelle Sandoval R.EnochALERT ;MEDICATION)Benadryl 25 mg IVP 13:21 10/17/2020 13:23 Paddy,X1 dose: 25 mg Marcelle Sandoval R.NCarmelo(NOW x1) ;IV NS 1000 mL 13:29 10/17/2020 13:32 Paddy,Bolus : Bolus 1000 Marcelle Sandoval R.NCarmelomL (X1) ;Toradol IVP 30 mg 14:30 10/17/2020 14:43 Paddy,(NOW) Marcelle Sandoval R.N. ;Reglan IVP 10 mg 14:30 10/17/2020 14:43 Lori Thomason Victoria Rachel R.N. ;Flagyl IVPB 500 15:05 10/17/2020 15:14 Paddy,mg/100mL Marcelle Sandoval R.N. ; Reason for ordering with alerts: Clinical consideration given -- 15:05 10/17/2020 Marcelle SandovalIV NS : 250 mL/hr 15:39 10/17/2020 15:46 Lori Thomason Victoria Rachel R.NCarmelo ;Zofran 4 mg IVP X 1 17:01 10/17/2020 17:16 Paddy,dose: 4 mg (NOW Marcelle Sandoval RCarmeloNCarmelox1) ; Reason for ordering with alerts: Clinical consideration given -- 17:01 10/17/2020 Marcelle SandovalGENERAL ORDERS 4 OrderSheet [facility] Emergency Department [address] [place] [address] Phone #: ext- [phone] 10/17/2020 11:14 Patient: NI DIAZ Sex: F : 1980 Age: 40yOrder Description Priority Entered Acknowledged InitialedNPO 11:31 10/17/2020 11:46 Lori Thomason Victoria Rachel R.N. ;Saline Lock 11:31 10/17/2020 Cancelled: Patient Refusal 12:03 Lori Thomason Victoria Rachel R.N. ;Consult - 15:37 10/17/2020 16:44 Paddy,Hospitalist Marcelle Sandoval R.N. ;[Electronically signed by Moises Thomason R.N. (17:41 10/17/2020)][Electronically signed by Marcelle Santo (18:34 10/17/2020)][Electronically locked by Moises Thomason R.N. (17:41 10/17/2020)] Name Value Range Interpretation Code Description Data Sumaya rce(s) Supporting Document(s) ID Date Data Source [id number] 10/17/2020 11:18:00 AM EST [facility] 1 Medication Reconciliation Report [facility] Emergency Department [address] [place] [address] Phone #: ext- [phone] 10/17/2020 11:14 Patient: NI DIAZ Sex: F : 1980 Age: 40yWeight: 69.8 kgHeight/Length: 67 in.BMI: 24.1ALLERGIES: Levaquin, NSAID, Sulfa AntibioticsThe patient's Home Medications are listed below:THE FOLLOWING MEDICATIONS NEED TO BE RECONCILED: Ambien Oral 7.5, daily, via J tube, prn,at bedtime Benadryl IV 50mg QDAY for nausea, 2x a day Carafate Oral 1 gm, q4h, via J tube Creon Oral (7499-8894 unit) 1 capsule, 4x a day, J tube FLUoxetine HCl Oral 20 mg, daily, via J tube Lovenox Subcutaneous (80 mg/0.8mL) 70 mg, 2x a day Ondansetron HCl Injection 8 mg IVP, q8h, prn oxyCODONE HCl Oral 100/5 ml; 1ML, 4x a day, via J tube, prn Protonix Intravenous (40 mg), 2x a day TPN Electrolytes Intravenous Tylenol Oral, prnThe source(s) of the original Home Medication information:Not obtained.The following Medications were given to the patient in the Emergency Department:Bentyl [PO] PO 10 mg, administered: 11:48 10/17/2020 2 Medication Reconciliation Report [facility] Emergency Department [address] [place] [address] Phone #: ext- [phone] 10/17/2020 11:14 Patient: NI DIAZ Sex: F : 1980 Age: 40yNS [IV] IV Fluids bolus 1000 mL over 1 hour(s), administered: 11:55 10/17/2020PHENERGAN [IVP] IVP 25 mg, administered: 12:03 10/17/2020offirmev IV bolus 0, then 1000 mg, administered: 12:03 10/17/2020Dilaudid [IVP] IVP 1 mg, administered: 12:45 10/17/2020Benadryl [IVP] IVP 25 mg, administered: 13:23 NS [IV] IV Fluids bolus 1000 mL over 1 hour(s), administered: 13:32 10/17/2020Toradol [IVP] IVP 30 mg, administered: 14:43 10/17/2020Reglan [IVP] IVP 10 mg, administered: 14:43 10/17/2020Flagyl [IVPB] IVPB bolus 0, then 500 mg 100 mL/hr, administered: 15:12 10/17/2020IV NS IV Fluids bolus 0, then 250 mL/hr, administered: 15:46 10/17/2020Zofran [IVP] IVP 4 mg, administered: 17:16 10/17/2020The following Medications were prescribed to the patient:None. Name Value Range Interpretation Code Description Data Sumaya rce(s) Supporting Document(s) ID Date Data Source [id number] 10/17/2020 11:18:00 AM EST [facility] 1 Medication Administration Record [facility] Emergency Department [address] [place] [address] Phone #: ext- [phone] 10/17/2020 11:14 Patient: NI DIAZ Sex: F : 1980 Age: 40yWeight: 69.8 kgHeight/Length: 67 inBMI: 24.1ALLERGIES: Levaquin, NSAID, Sulfa Antibiotics Date/Time Medication Administered Medication OrderedStart NS [IV] NS IV : Bolus 1000 mL, then 75996:55 10/17/2020 Dose: IV Fluids mL/hrMoises Thomason RCarmeloNCarmelo Bolus: 1000 mL over 1 hour(s)---- Dispensed: 1000 mL bagStop Site: #1 right chest17:39 10/17/2020Moises Thomason RCarmeloNCarmeloStart offirmev * Ofirmev IV 1000 mg (NOW x1,12:03 10/17/2020 Dose: 1000 mg * IV Infuse over 15 minutes)Moises Thomason R.N.----Stop12:40 10/17/2020Moises Thomason R.N.Given PHENERGAN [IVP] (PROMETHAZINE Phenergan IV 25 mg (NOW x1,12:03 10/17/2020 HCL) HIGH ALERT MEDICATION, NOW)Moises Thomason R.N. Dose: 25 mg IVP Site: #1 right chestGiven BENTYL [PO] (DICYCLOMINE HCL) Bentyl PO 10 mg11:48 10/17/2020 Dose: 10 mg Tablets POWMoises merino R.N.Given DILAUDID [IVP] (HYDROMORPHONE Dilaudid IVP 1 mg (NOW x1, HIGH12:45 10/17/2020 HCL) ALERT MEDICATION)Moises Thomason R.N. Dose: 1 mg IVP Site: #1 right chestGiven BENADRYL [IVP] (DIPHENHYDRAMINE Benadryl 25 mg IVP X1 dose: 2513:23 10/17/2020 HCL) mg (NOW x1)Moises Thomason R.N. Dose: 25 mg IVP Site: #1 right chestStart NS [IV] IV NS 1000 mL Bolus : Bolus 311295:32 10/17/2020 Dose: IV Fluids mL (X1)Moises Thomason R.N. Bolus: 1000 mL over 1 hour(s)---- Dispensed: 1000 mL bagStop Site: #1 right chest17:41 10/17/2020Moises Thomason R.N.Given TORADOL [IVP] (KETOROLAC Toradol IVP 30 mg (NOW)14:43 10/17/2020 TROMETHAMINE)Moises Thomason R.N. Dose: 30 mg IVP Site: #1 right chestGiven REGLAN [IVP] (METOCLOPRAMIDE Reglan IVP 10 mg14:43 10/17/2020 HCL)Moises Thomason R.N. Dose: 10 mg IVP Site: #1 right chest 2 Medication Administration Record [facility] Emergency Department [address] [place] [address] Phone #: ext- [phone] 10/17/2020 11:14 Patient: NI DIAZ Sex: F : 1980 Age: 40yStart FLAGYL [IVPB] (METRONIDAZOLE IN Flagyl IVPB 500 mg/410vY60:12 10/17/2020 NACL)Moises Thomason RGuanakito Dose: 500 mg IVPB---- Rate: 100 mL/hr over 1 hour(s)Stop Dispensed: 100 mL bag17:39 10/17/2020 Site: #1 right chestMoises Thomason R.N.Start IV NS IV NS : 250 mL/hr15:46 10/17/2020 Dose: IV FluidsMoises Thomason R.N. Rate: 250 mL/hr---- Dispensed: 1000 mL bagContinued Upon Transfer Site: #1 right chest17:40 10/17/2020Moises Thomason R.N.Given ZOFRAN [IVP] (ONDANSETRON HCL) Zofran 4 mg IVP X 1 dose: 4 mg17:16 10/17/2020 Dose: 4 mg IVP (NOW x1)Moises Thomason R.N. Site: #1 right chest Name Value Range Interpretation Code Description Data Sumaya rce(s) Supporting Document(s) ID Date Data Source [id number] 10/17/2020 11:18:00 AM EST [facility] 1 General Instructions [facility] Emergency Department [address] [place] [address] Phone #: ext- [phone] 10/17/2020 11:14 Patient: NI DIAZ Sex: F : 1980 Age: 40yAcute right lower quadrant abdominal pain of undetermined cause.Diarrhea.Abnormal tests; (elevated lactic acid).(Electronically signed by Marcelle Sandoval 10/17/2020 18:34) Name Value Range Interpretation Code Description Data Sumaya rce(s) Supporting Document(s) ID Date Data Source [id number] 10/17/2020 11:18:00 AM EST [facility] 1 Clinical Report - Nurses [facility] Emergency Department [address] [place] [address] Phone #: ext- [phone] 10/17/2020 11:14 Patient: NI DIAZ Sex: F : 1980 Age: 40yTRIAGEArrived by private vehicle. Historian: patient. Accompanied by family. ( has had loose stool, nausea andvomiting along with abd pain and back pain, states that she has felt like she needs to urinate butcannot, pt has feeding tube and central line, pt states everything went black when coming into the hospitaland she was found on the ground).Acuity: LEVEL 3.Chief Complaint: ABDOMINAL PAIN, NAUSEA, VOMITING and DIARRHEA.Alert.This started yesterday. She has had nausea, vomiting and abdominal pain. The pain is described aslocated in the lower abdomen. 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 (0800).SEPSIS SCREEN: SIRS SCREEN NEGATIVE. SEPSIS SCREEN NEGATIVE. No suspected or confirmedsigns of infection present. --11:24 10/17/20 Erika Gillis R.N.11:17 10/17/20. BP: 124/70. MAP: 88. HR: 50. RR: 12. O2 saturation: 100%. Temp: 98.3 F. Pain levelnow: 07/30. --11:24 10/17/20 Bryan, Erika, R.N.Treatment RAIL BENDER:(zofran iv 1 hour ago). --11:10/17/20 Erika Gillis R.N.Weight: 69.8 kg stated. Height/Length: 67 inches Per Patient. BMI: 24.1. --11:15 10/17/20 Erika Gillis R.N.MedicationsAmbien Oral 7.5, daily as needed, at bedtime, via J tube. Benadryl IV 50mg QDAY for nausea, 2x a day. Carafate Oral 1 gm, q4h, via J tube. Creon Oral (Capsule Delayed Release Particles 8838-6647 unit) 1 capsule, 4x a day, J tube. FLUoxetine HCl Oral 20 mg, daily, via J tube. Lovenox Subcutaneous (Solution 80 mg/0.8mL) 70 mg, 2x a day. Ondansetron HCl Injection 8 mg IVP, q8h as needed. oxyCODONE HCl Oral 100/5 ml; 1ML, 4x a day as needed, via J tube. Protonix Intravenous (Solution Reconstituted 40 mg), 2x a day. Tylenol Oral, as needed. --10/17/20 Erika Gillis R.N. TPN Electrolytes Intravenous. --10/17/20 Erika Gillis R.N. 2 Clinical Report - Nurses [facility] Emergency Department [address] [place] [address] Phone #: ext- [phone] 10/17/2020 11:14 Patient: NI DIAZ Sex: F : 1980 Age: 40yAllergiesLevaquin.(hives)NSAID.Sulfa Antibiotics.(Anaphylaxis) --1110/17/20 Erika Gillis R.N.PROBLEMS:Gastric ulcer.Fever.Constipation.GI Disease.GI Bleeding.Cellulitis.Anemia.Back Injury.Gastroparesis.Sepsis (disorder).Respirat ory Distress.UTI - Urinary Tract Infection.Status Epilepticus.Lung Disease.Hypoxia.Pulmonary Embolism.Malabsorption syndrome. --10/17/20 Erika Gillis R.N.ADDITIONAL SURGERIES:Bariatric Surgery.Bowel resection.Bowel Resection [2016].Bowel Surgery.Cholecystectomy.Gastric bypass.Gastric bypass reversal [08/2019].Gastric Resection [2009].GI bleed clipping.Hysterectomy.J- Tube placement.Life port removed.Lifeport [10/2017].Portacath left chest.Nadege-en-Y gastrojejunostomy [2009].Spinal fusion.Spinal fusion. --10/17/20 Erika Gillis R.N.History 3 Clinical Report - Nurses [facility] Emergency Department [address] [place] [address] Phone #: ext- [phone] 10/17/2020 11:14 Patient: NI DIAZ Sex: F : 1980 Age: 40y PAST MEDICAL HX: Immunizations: up-to-date. The patient has had a hysterectomy. SOCIAL HX: Never smoker. No alcohol use or drug use. No recent travel. No known contact with a sick individual. She was offered HIV testing but declined and hepatitis C testing but declined. She has not traveled outside the [place] Infectious disease exposure: No infectious disease exposure. Patient is not a known carrier of tuberculosis, hepatitis, HIV, MRSA or VRE. Patient is not a known carrier of CRE. SELF HARM ASSESSMENT: Self harm assessment was performed. The patient answered "no" to the question(s) "Have you recently felt down, depressed, or hopeless?", "Do you have thoughts of harming or killing yourself?", "Do you have a plan for harming or killing yourself?", "Have you recently had thoughts about harming or killing others?", "Do you have any dangerous items in your possession?", "Have you noticed less interest or pleasure in doing things?", "Are you here because you tried to hurt yourself?" and "Have you ever tried to hurt yourself before today?". ABUSE ASSESSMENT: Abuse assessment. Abuse denied. No suspicion of abuse. No report of abuse. NUTRITIONAL RISK ASSESSMENT: The nutritional risk assessment revealed no deficiencies. LEARNING NEEDS ASSESSMENT: The learning needs assessment revealed no barriers. FALL RISK ASSESSMENT: Fall risk assessment completed. Risk factors identified include severe pain and patient impairment of mobility and cognition. Fall interventions initiated. Patient placed on stretcher. Side rails up x2. Bed in low position. Brakes on. Instructions given to patient including fall prevention information. Verbalizes understanding. FUNCTIONAL ASSESSMENT: Functional assessment performed: communication barrier present- this communication barrier is an ongoing problem. SKIN INTEGRITY ASSESSMENT: Skin integrity risk assessment completed. No skin integrity risk identified. --11:10/17/20 Erika Gillis R.N. 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 Precautions taken. Staff notified. Patient taken to isolation room. --1110/17/20 Erika Gillis R.N. Interventions Identification band on patient. To treatment room. --1110/17/20 Erika Gillis R.N.PHYSICAL [id number] 10/17/20. To room via stretcher.GENERAL / NEURO / PSYCH: Oriented X 4. Appears anxious. Decreased awareness (drowsy).HEENT: Mucous membranes are pink.RESPIRATORY: Respirations not labored. Breath sounds within normal limits.CVS: Cardiac rhythm: sinus bradycardia. Capillary refill less than 2 seconds.GI / : The patient has had nausea and diarrhea. Emesis noted. ( j tube present). 4 Clinical Report - Nurses [facility] Emergency Department [address] [place] [address] Phone #: ext- [phone] 10/17/2020 11:14 [id number] Sex: F : 1980 Age: 40y SKIN: Skin is pale. --12:19 10/17/20 Moises Thomason R.N.NURSING PROGRESS NOTESCardiac monitor and NIBP monitor placed on patient; monitor alarms on. Patient gowned. Reassurancegiven. Two patient identifiers checked. Call light placed in reach. Side rails up x 2. Bed placed inlowest position. Brakes of bed on. Patient ready for evaluation- ED physician notified. --11:24 10/17/20Erika Gillis R.N. 11:48 10/17/2020 Bentyl (Dicyclomine HCl) PO Tablets 10 mg given. Allergies verified and confirmed 5 rights. Information reviewed with patient including reason for taking this medication. Verbalizes understanding. --11:48 10/17/20 Moises Thomason R.N. 11:54 10/17/2020 Site #1 accessed indwelling [place] in the right chest using a non-coring needle. Blood drawn: rainbow set and green tube(s). --11:55 10/17/20 Moises Thomason R.N. 11:55 10/17/2020 Started bag #1 1000 mL IV Fluids NS; bolus of 1000 mL over 1 hour(s) via site #1 via IV pump. Allergies verified and confirmed 5 rights. IV patency established. IV site checked: no pain, redness, or swelling. IV flushed thoroughly pre- and post-medication administration. Information reviewed with patient including reason for taking this medication. Verbalizes understanding. --11:55 10/17/20 Moises Thomason R.N. 12:03 10/17/2020 PHENERGAN (Promethazine HCl) IVP 25 mg given over 3 minute(s) via site #1. Allergies verified and confirmed 5 rights. IV patency established. IV site checked: no pain, redness, or swelling. IV flushed thoroughly pre- and post-medication administration. IVP given by RN. Information reviewed with patient including reason for taking this medication and sedative warning. Verbalizes understanding (dilluted in 10 cc Ns). --12:03 10/17/20 Moises Thomason R.N. 12:03 10/17/2020 offirmev * IV 1000 mg --12:03 10/17/20 Moises Thomason R.N. EKG time: (11:19 10/17/2020). EKG was performed by a nurse and shown to the ED physician. --12:19 10/17/20 Moises Thomason R.N. 12:19 10/17/20. BP: 122/80. MAP: 94. HR: 53. RR: 24. O2 saturation: 99%. Pain level now: 05/30. --12:10/17/20 Moises Thomason R.N. 12:45 10/17/2020 Dilaudid (HYDROmorphone HCl) IVP 1 mg given over 3 minute(s) via site #1. Allergies verified and confirmed 5 rights. IV patency established. IV site checked: no pain, redness, or swelling. IV flushed thoroughly pre- and post- medication administration. IVP given by RN. Information reviewed with patient including reason for taking this medication and sedative warning. Verbalizes understanding. --12:45 10/17/20 Moises Thomason R.N. 13:04 10/17/20. Patient transported to [place] by stretcher with monitor, IV, mask, nurse and tech. --13:10/17/20 Moises Thomason R.N. 5 Clinical Report - Nurses [facility] Emergency Department [address] [place] [address] Phone #: ext- [phone] 10/17/2020 11:14 Patient: NI DIAZ Sex: F : 1980 Age: 40y13:14 10/17/20. Patient returned from [place] by stretcher with monitor, IV, mask, nurse and tech. --13: Moises Thomason R.N.Reassessment after medication administered. Pain still present but improving. Nausea still present.--13:10/17/20 Moises Thomason R.N.13:19 10/17/20. BP: 112/95. MAP: 100. HR: 77. RR: 18. O2 saturation: 98%. Pain level now: 03/30.--13:22 10/17/20 Moises Thomason R.N.13:23 10/17/2020 Benadryl (diphenhydrAMINE HCl) IVP 25 mg given over 3 minute(s) via site #1. Allergiesverified and confirmed 5 rights. IV patency est ablished. IV site checked: no pain, redness, or swelling. IVflushed thoroughly pre- and post-medication administration. IVP given by RN. Information reviewed withpatient including reason for taking this medication and sedative warning. Verbalizes understanding.--13:23 10/17/20 Moises Thomason R.N.13:23 10/17/2020 IV Fluids NS via IV site #1 Bag Change: bag #1 completed. Total amount infused: 1000.STARTED bag #2 (1000 mL) at 150 mL/hr via IV pump. Confirmed 5 rights. IV patency established. IV sitechecked: no pain, redness, or swelling. IV flushed thoroughly. --13:23 10/17/20 Moises Thomason R.N.13:32 10/17/2020 Started bag #2 1000 mL IV Fluids NS; bolus of 1000 mL over 1 hour(s) via site #1 via IVpump. Allergies verified and confirmed 5 rights. IV patency established. IV site checked: no pain, redness,or swelling. IV flushed thoroughly pre- and post- medication administration. Information reviewed withpatient including reason for taking this medication. Verbalizes understanding. --13:32 10/17/20 Moises Thomason R.N.14:43 10/17/2020 Toradol (Ketorolac Tromethamine) IVP 30 mg given over 3 minute(s) via site #1.Allergies verified and confirmed 5 rights. IV patency established. IV site checked: no pain, redness, orswelling. IV flushed thoroughly pre- and post-medication administration. IVP given by RN. Informationreviewed with patient including reason for taking this medication. Verbalizes understanding. --14: Moises Thomason R.N.14:43 10/17/2020 Reglan (Metoclopramide HCl) IVP 10 mg given over 3 minute(s) via site #1. Allergiesverified and confirmed 5 rights. IV patency established. IV site checked: no pain, redness, or swelling. IVflushed thoroughly pre- and post- medication administration. IVP given by RN. Information reviewed withpatient including reason for taking this medication. Verbalizes understanding. --14:43 10/17/20 Moises Thomason R.N.14:48 10/17/20. BP: 121/90. MAP: 100. HR: 56. RR: 18. O2 saturation: 99%. Pain level now: 05/30.--14:49 10/17/20 Moises Thomason R.N.Reassessment after medication administered. Pain still present. Nausea still present. Overall patientstatus is the same- she states feels the same. --14:49 10/17/20 Moises Thomason R.N.11:48 10/17/2020 Bentyl PO 10 mg was refused by patient because of nausea. --15:17 10/17/20 Paddy, Nicolas Clinical Report - Nurses [facility] Emergency Department [address] [place] [address] Phone #: ext- [phone] 10/17/2020 11:14 Patient: NI DIAZ Sex: F : 1980 Age: 40y Lars De Leon 15:12 10/17/2020 Started 500 mg of Flagyl (metroNIDAZOLE in NaCl) IVPB in bag #1 100 mL; at 100 mL/hr over 1 hour(s) via site #1. via IV pump. Allergies verified and confirmed 5 rights. Information reviewed with patient including reason for taking this medication. Verbalizes understanding. --15:14 10/17/20 Moises Thomason R.N. 15:34 10/17/20. BP: 127/67. MAP: 87. HR: 75. RR: 18. O2 saturation: 99%. --15:35 10/17/20 Moises Thomason R.N. The patient is calm and resting quietly. --15:35 10/17/20 Moises Thomason R.N. 15:46 10/17/2020 Started bag #3 1000 mL IV Fluids IV NS; at 250 mL/hr via site #1 via IV pump. Allergies verified and confirmed 5 rights. IV patency established. IV site checked: no pain, redness, or swelling. IV flushed thoroughly pre- and post-medication administration. Information reviewed with patient including reason for taking this medication. Verbalizes understanding. --15:46 10/17/20 Moises Thomason R.N. 16:04 10/17/20. Patient waiting for treatment bed / room. --17:04 10/17/20 Moises Thomason R.N. 17:16 10/17/2020 Zofran (Ondansetron HCl) IVP 4 mg given over 3 minute(s) via site #1. Allergies verified and confirmed 5 rights. IV patency established. IV site checked: no pain, redness, or swelling. IV flushed thoroughly pre- and post- medication administration. IVP given by RN. Information reviewed with patient including reason for taking this medication. Verbalizes understanding. --17:16 10/17/20 Moises Thomason R.N.DISPOSITION / DISCHARGE Condition at departure: improved and stable. Transferred to [facility]. Report was given to a nurse via a phone call. Report included patient's care, condition, vital signs, labs, medications and IV's. All questions were answered. Report was acknowledged. (STACIE Coker). Patient's personal items include: shirt, pants, purse and cell phone; items were placed in belongings bag, given to the patient and transported with the patient. --17:03 10/17/20 Moises Thomason R.N. 17:02 10/17/20. BP: 127/70. MAP: 89. HR: 57. RR: 20. O2 saturation: 100%. Temp: 98.9 F. Pain level now: 03/30. --17:03 10/17/20 Moises Thomason R.N. 17:37 10/17/20. BP: 135/77. MAP: 96. HR: 81. RR: 22. O2 saturation: 100%. Temp: 98.7 F. Pain level now: 03/30. --17:38 10/17/20 Moises Thomason R.N. Departure time: 17:38 10/17/2020. Transported via ambulance by architectural manager with monitor, IV and mask. --17:38 10/17/20 Moises Thomason R.N. 12:40 10/17/2020 Offirmev IV Discontinued: bag #1 completed upon discharge. Total amount infused: 50 mL. IV patency established. IV site checked: no pain, redness, or swelling. IV flushed thoroughly. --17:40 10/17/20 Moises Thomason R.N. 7 Clinical Report - Nurses [facility] Emergency Department [address] [place] [address] Phone #: ext- [phone] 10/17/2020 11:14 Patient: NI DIAZ Sex: F : 1980 Age: 40y 17:39 10/17/2020 IV Fluids NS via IV site #1 Discontinued: bag #2 completed upon discharge. Total amount infused: 2000 mL. IV patency established. IV site checked: no pain, redness, or swelling. IV flushed thoroughly. --17:39 10/17/20 Moises Thomason R.N. 17:39 10/17/2020 Flagyl IVPB via IV site #1 Discontinued: bag #1 completed upon transfer. Total amount infused: 100 mL. IV patency established. IV site checked: no pain, redness, or swelling. IV flushed thoroughly. --17:39 10/17/20 Moises Thomason R.N. 17:40 10/17/2020 Site #[address] upon transfer. Good blood return present. Flushed with 10 mL saline. --17:40 10/17/20 Moises Thomason R.N. 17:40 10/17/2020 IV Fluids IV NS via IV site #1 Continued: upon transfer at the rate of 250 mL/hr. 500 mL remaining bag #3. IV patency established. IV site checked: no pain, redness, or swelling. IV flushed thoroughly. --17:40 10/17/20 Moises Thomason R.N. 17:41 10/17/2020 IV Fluids NS via IV site #1 Discontinued: bag #2 completed upon discharge. IV patency established. IV site checked: no pain, redness, or swelling. IV flushed thoroughly. --17:41 10/17/20 Moises Thomason R.N.Locked/Released at 10/17/2020 17:41 by Moises Thomason R.N. Name Value Range Interpretation Code Description Data Sumaya rce(s) Supporting Document(s) ID Date Data Source [id number] 0001 10/17/2020 11:18:00 AM [facility] 1 Clinical Report - Physicians/Mid Levels [facility] Emergency Department [address] [place] [address] Phone #: ext- [phone] 10/17/2020 11:14 Patient: NI DIAZ Sex: F : 1980 Age: 40y Time Seen: 11:23 10/17/2020; initial patient contact, initial documentation. Arrived- By private vehicle. Historian- patient. Disposition decision: 15:37 10/17/2020.HISTORY OF PRESENT ILLNESS Chief Complaint: ABDOMINAL PAIN. It is described as sharp and stabbing and it is described as located in the right abdomen and radiating to the low back. This started 2 days ago associated with vomiting. denies fevers, chills, diarrhea. and is still present. At its maximum, severity described as 10 / 10. When seen in the E.D., severity described as 10 / 10. Modifying factors. Not worsened by anything. Not relieved by anything. The patient has had nausea and vomiting. No loss of appetite or diarrhea. (Patient passed out in the hospital on her way to the ER but is currently awake). No recent travel. Similar symptoms previously. Patient has had similar symptoms several times.REVIEW OF SYSTEMSNo constipation, black stools, hematemesis, difficulty with urination or pain with urination. No bloodystools, fever, headache, sore throat or blurred vision. No chest pain, difficulty breathing, cough, joint painor skin rash. No chills. Denies current . The patient has had back pain.PAST HISTORYSee nurses notes. Problems: Gastric ulcer. Fever. Constipation. GI Disease. GI Bleeding. Cellulitis. Anemia. Back Injury. Gastroparesis. Sepsis (disorder). Respiratory Distress. UTI - Urinary Tract Infection. Status Epilepticus. Lung Disease. Hypoxia. Pulmonary Embolism. Abdominal Pain. 2 Clinical Report - Physicians/Mid Levels [facility] Emergency Department [address] [place] [address] Phone #: ext- [phone] 10/17/2020 11:14 Patient: NI DIAZ [facility]#: [id number] Sex: F : 1980 Age: 40y Additional Surgeries: Bariatric Surgery. Bowel resection. Bowel Resection [2016]. Bowel Surgery. Cholecystectomy. Gastric bypass. Gastric bypass reversal [08/2019]. Gastric Resection [2008]. GI bleed clipping. Hysterectomy. J-Tube placement. Life port removed. Lifeport [10/2017]. Portacath left chest. Nadege-en-Y gastrojejunostomy [2009]. Spinal fusion. Spinal fusion. Medications: TPN Electrolytes Intravenous. Ambien Oral 7.5, daily as needed, at bedtime, via J tube. Benadryl IV 50mg QDAY for nausea, 2x a day. Carafate Oral 1 gm, q4h, via J tube. Creon Oral (Capsule Delayed Release Particles [id number] unit) 1 capsule, 4x a day, J tube. FLUoxetine HCl Oral 20 mg, daily, via J tube. Lovenox Subcutaneous (Solution 80 mg/0.8mL) 70 mg, 2x a day. Ondansetron HCl Injection 8 mg IVP, q8h as needed. oxyCODONE HCl Oral 100/5 ml; 1ML, 4x a day as needed, via J tube. Protonix Intravenous (Solution Reconstituted 40 mg), 2x a day. Tylenol Oral, as needed. Allergies: Levaquin.(hives) NSAID. Sulfa Antibiotics.(Anaphylaxis).SOCIAL HISTORYNever smoker. No alcohol use or drug use.ADDITIONAL NOTESThe nursing notes have been reviewed.PHYSICAL EXAMVital Signs: 10/17/2020 11:17 BP: 124/70. MAP: 88. HR: 50. RR: 12. O2 saturation: 100%. Temp: 98.3 F. 3 Clinical Report - Physicians/Mid Levels [facility] Emergency Department [address] [place] [address] Phone #: ext- [phone] 10/17/2020 11:14 [id number] Sex[facility] F : 1980 Age: 40y Pain level now: 07/30. Oxygen saturation normal. Appearance: Alert. Oriented X3. No acute distress. Eyes: Pupils equal, round and reactive to light. Eyes normal inspection. No conjunctival findings, scleral icterus or pale conjunctivae. ENT: Ears not normal. Nose abnormal. Pharynx abnormal. Dry mucous membranes present. Normal ear exam. No nasal discharge, pharyngeal erythema or tonsillar exudate. Neck: Neck not supple. Abnormal inspection. CVS: Bradycardia. Heart sounds abnormal. Pulses abnormal. No cardiac murmur or extra heart sounds. No decreased pulses. Respiratory: Respiratory distress present. Chest tender. Breath sounds abnormal. Painful inspiration. Abdomen: Soft. Moderate tenderness in the right side of the abdomen with guarding present. No rebound tenderness. The bowel sounds are not abnormal. No distention, mass present or organomegaly. (ecchymosis noted on the Right lower abdomen from Lovenox injections). Back: Normal inspection. No CVA tenderness. Skin: Skin warm and dry. Normal skin color. No rash. Normal skin turgor. Extremities: Extremities exhibit normal ROM. No lower extremity edema. No calf tenderness. No lower extremity edema. Neuro: Oriented X 3. No motor deficit.LABS, X-RAYS, AND EKGEKG: EKG time: 11:19 10/17/2020. No acute process. Rate: 53. Bradycardia. Normal P waves.Normal QRS complex. Normal ST and T waves. The study has been interpreted contemporaneously byme. The study has been independently viewed by me. The EKG appears to be a good tracing. I agreewith and confirm the computer reading of the EKG. Interpretation time: 11:38 10/17/2020.CT Abdomen - Pelvis: Daquan murdock Mike - 10/17/2020 1:20:19 PMComparison is made to a prior study from 07/30/2020. Status post cholecystectomy. G-tube present and ingood position. Postsurgical changes in the spine. Appendix is visualized and is within normal limits. No freefluid. New areas of increased density and air in the subcutaneous soft tissues of the right lower quadrant. Suspicious for an underlying infectious process and possible developing abscess. Clinical correlation is recommended. Mark. The study was discussed with the radiologist (DR Butt who states that the soft tissue inflammation maybe just granuloma from her injecting lovenox.). The study was interpreted by the radiologist. Laboratory Tests: COVID-19 CAH: (LUISANA: 10/17/2020 15:15) ( MsgRcvd 10/17/2020 15:55) Final results Test Result Flag Units (Reference) COVID-19 NOT DETECTED COVID-19 REENTER NOT DETECTED { PROCEDURAL CONTROL VALID KIT LOT # _[id number] 10/17/20.1549.TAD. KIT EXP DATE _01.26.21 10/17/20.1549.TAD. NORMAL RANGE IS NOT DETECTEDNEGATIVE RESULTS SHOULD BE TREATED PREUMPTIVE AND, IF INCONSISTENT WITHCLINICAL SIGNS AND SYMPTOMS OR NECESSARY FOR PATIENT MANAGEMENT, SHOULD BETESTED WITH DIFFERENT AUTHORIZED OR CLEARED MOLECULAR TESTS . NEGATIVE RESULTSDO NOT PRECLUDE SARS-CoV-2 INFECTION AND SHOULD NOT BE USED THE SOLE BASISFOR PATIENT MANAGEMENT DECISIONS. 4 Clinical Report - Physicians/Mid Levels [facility] Emergency Department [address] [place] [address] Phone #: ext- [phone] 10/17/2020 11:14 Patient: NI DIAZ Sex: F : 1980 Age: 40yLactic Acid: (LUISANA: 10/17/2020 14:38) ( OhgRcvd 10/17/2020 15:25) Final results Test Result Flag Units (Reference) LACTIC ACID 2.7 H MMOL/L (0.2 - 2.2)CT Abd PEL W/ IV Contrast Only: (LUISANA: 10/17/2020 11:45) ( MsgRcvd 10/17/2020 14:08) In ProgressCT ABDReason(s): right sided abdominal painTRANSPORTATION: S IV? IV?(Yes) O2? Oxygen?(No) Ro Exam CT ABD //T// PELVIS W/ [place] [address] PHONE: [phone] FAX: [phone] Name .................. : BASILIO Torres Acct N umber.................. : [id number] ROOM. ................. : TR-03 MR Number ................... : [id number] Stay type ............. : E/R Discharge Date......... ... : Admit Date ......... : 10/17/20 Admit Phys .................... : LORI Date of ....... : 1980 Family Phys ................... : MITA ROCHE Phone .................. : [phone] Age ................................ : 40 Film# .................. .:[id number] Sex ................................. : F Unsigned transcriptions are preliminary reports and do not represent a medical or legal document CT ABD Reason(s): right sided abdominal pain CT SCAN OF THE ABDOMEN INDICATION: Right-sided abdominal pain. Comparison is made to prior study from 07/30/2020. FINDINGS: Lung bases shows atelectasis versus scarring at the left lung base. Gallbladder is surgically absent. The liver, spleen, pancreas, and adrenal glands appear unremarkable. Bilateral kidneys show no hydronephrosis or nephrolithiasis. There is a G tube present with its tip in the stomach, unchanged since prior study. The appendix is visualized and appears unremarkable. No free fluid is identified in the pelvis. Urinary bladder appears unremarkable. In the subcutaneous soft tissues of the right lower quadrant, there are new areas of air and soft tissue density, largest measuring approximately 2 cm. After discussion with the ordering physician, the patient has been giving herself injections of Lovenox at this location, which likely accounts for the findings on the CT imaging. An underlying infectious process cannot be completely excluded. IMPRESSION: Lung bases are clear. Gallbladder is surgically absent. Appendix is normal. G tube is present and in good position. No free fluid is identified in the pelvis. Subcutaneous areas of increased intensity and air in the right lower quadrant may represent underlying infectious process/developing abscess. Clinical correlation is recommended. While performing the above CT examination, radiation dose reduction was accomplished utilizing automated exposure control, adjusting of the mA and kV based on the patient's body size and/or the use of imperative reconstructive techniques. CT dose 1013.9 mGycm. Contrast agent in mL: 75 mL Isovue 370 5 Clinical Report - Physicians/Mid Levels [facility] Emergency Department [address] [place] [address] Phone #: ext- [phone] 10/17/2020 11:14 Patient: NI DIAZ Sex: F : 1980 Age: 40y [address] [place] [address] PHONE: [phone] FAX: [phone] Name .................. : BASILIO Torres Acct Number.................. : [id number] ROOM. ................. : TR-03 MR Number ................... : [id number] Stay type ............. : E/R Discharge Date......... ... : Admit Date ......... : 10/17/20 Admit Phys .................... : LORI Date of ....... : 1980 Family Phys ................... : MITA ROCHE Phone .................. : [phone] Age ................................ : 40 Film# .................. .:[id number] Sex ................................. : F Unsigned transcriptions are preliminary reports and do not represent a medical or legal document CT ABD Reason(s): right sided abdominal pain Method of administration: Intravenous Examination dictated by TROY Cross. Examination was reviewed with Kaden Carrillo MD, radiologist at the time of this dictation. Electronically Reviewed and Signed By DCTNAME , SIGNDATE, KGG Transcribe Initials: [facility], Transcribe Date: 10/17/20 13:56, Dictation Date: <<REPDIST>> Page 2of 2Lactic Acid: (LUISANA: 10/17/2020 12:05) ( [facility] 10/17/2020 12:43) Final results Test Result Flag Units (Reference) LACTIC ACID 2.3 H MMOL/L (0.2 - 2.2)CBC w Diff: (LUISANA: 10/17/2020 12:05) ( [facility] 10/17/2020 12:15) Final results Test Result Flag Units (Reference) CBC W/AUTOMATED DIFF COMPLETE BLOOD COUNT WBC 11.0 10/uL (4.2 - 11.0) RBC 5.07 10/uL (4.20 - 5.40) HEMOGLOBIN 13.4 g/dL (12.0 - 16.0) HEMATOCRIT 41.6 % (37.0 - 47.0) MCV 82.1 fL (81.0 - 101) 6 Clinical Report - Physicians/Mid Levels [facility] Emergency Department [address] [place] [address] Phone #: ext- [phone] 10/17/2020 11:14 Patient: NI DIAZ Sex: F : 1980 Age: 40y MCH 26.4 L pg (27.0 - 34.0) MCHC 32.2 g/dL (31.0 - 36.0) RDW 19.3 H % (11.5 - 14.5) PLATELETS 496 H 10/uL (150 - 450) MPV 9.2 fL (7.4 - 10.4) NEUT 92.0 H % (37.0 - 80.0) LYMPH 4.9 L % (25.0 - 40.0) MONO 2.4 L % (3.0 - 8.0) EOS 0.0 % (0.0 - 7.0) BASO 0.3 % (0.0 - 2.5) %IG 0.4 H % (0.0 - 0.0) %NRBC 0.0 % (0.0 - 0.0) #NEUT 10.08 H 10/uL (2.00 - 6.90) #LYMPH 0.54 L 10/uL (0.60 - 3.40) #MONO 0.26 10/uL (0.00 - 0.90) #EOS 0.00 10/uL (0.00 - 0.70) #BASO 0.03 10/uL (0.00 - 0.20) #IG 0.04 10/uL (0.00 - 0.10) #NRBC 0.00 10/uL (0.00 - 0.00) MANUAL DIFF NOT INDICATED RBC MORPH NOT INDICATEDCMP: (LUISANA: 10/17/2020 12:05) ( MsgRcvd 10/17/2020 12:42) Final results Test Result Flag Units (Reference) COMPREHENSIVE META BOLIC PANEL COMPREHENSIVE METABOLIC PANEL SODIUM 140 mEq/L (134 - 153) POTASSIUM 3.6 mEq/L (3.6 - 5.0) CHLORIDE 102 mEq/L (98 - 107) CO2 24 MEQ/L (22 - 30) GLUCOSE 197 H MG/DL (65 - 110) BUN 20 MG/DL (7 - 21) CREATININE 0.6 L MG/DL (0.7 - 1.5) BUN/CREAT 33 H (8 - 27) TOTAL PROTEIN 7.7 G/DL (6.3 - 8.2) ALBUMIN 4.8 G/DL (3.9 - 5.0) GLOBULIN 2.9 GM/DL (2.4 - 3.2) A/G RATIO 1.7 (0.8 - 2.0) CALCIUM 10.0 MG/DL (8.4 - 10.2) TOTAL BILI <0.7 MG/DL (0.2 - 1.3) ALKALINE PHOS 114 U/L (38 - 126) SGOT/AST 19 U/L (5 - 40) SGPT/ALT 22 U/L (7 - 56) ANION GAP 14.0 mmol/L (8.0 - 16.0) AGE 40 yrs NON-AA GFR >60 mL/min AFR AMER GFR >60 mL/min Male GFR Interprentation 20-49 yrs >60 mL/min Xezpzt81-94 yrs >56 mL/min Normal 60-69 yrs >49 mL/min Normal 70-79yrs>42 mL/min Normal 80 and above >35 mL/min Normal Female GFRInterpretation 20-39 yrs >60 mL/min Normal 40-49 yrs >58 mL/minNormal 50-59 yrs >51 mL/min Normal 60-69 yrs >45 mL/min Ikhocc32-51 yrs >39 mL/min Normal 80 and above >32 mL/min NormalLipase: (LUISANA: 10/17/2020 12:05) ( MsgRcvd 10/17/2020 12:42) Final results Test Result Flag Units (Reference) LIPASE 29 U/L (13 - 60) 7 Clinical Report - Physicians/Mid Levels [facility] Emergency Department [address] [place] [address] Phone #: ext- [phone] 10/17/2020 11:14 Patient: NI DIAZ [facility]#: [id number] Sex: F : 1980 Age: 40y Urinalysis: (LUISANA: 10/17/2020 14:20) ( [facility] 10/17/2020 15:09) Final results Test Result Flag Units (Reference) URINALYSIS URINALYSIS SOURCE R COLOR yellow (NORMAL: Yello CLARITY clear (NORMAL: Clear SPEC GRAVITY 1.010 (1.001 - 1.030 pH 5 (5 - 9) GLUCOSE NORM (NORMAL: Negat BILIRUBIN NEG (NORMAL: Negat KETONE 50 A (NORMAL: Negat PROTEIN 100 A (NORMAL: Negat NITRITE NEG (NORMAL: Negat BLOOD NEG (NORMAL: Negat LEUK EST NEG (NORMAL: Negat UROBILINOGEN NOR (less than 1.0 MICROSCOPIC See Below WBC 1 - 3 (NORMAL: NONE RBC 1 - 3 (NORMAL: NONE EPITHELIAL FEW (NORMAL: NONE BACTERIA Trace (NORMAL: NONE MUCOUS Trace (NORMAL: NONE Beta-HCG, Qual Serum: (LUISANA: 10/17/2020 12:05) ( [facility] 10/17/2020 12:29) Final results Test Result Flag Units (Reference) HCG SERUM QUAL NEGATIVE (NORMAL: NEGAT HCG SERUM QL REENTER NEGATIVE (NORMAL: NEGAT { KIT LOT # [id number] ){ KIT EXP DATE 017202 ){ PROCEDURAL CONTROL VALID ) PT/INR: (LUISANA: 10/17/2020 12:05) ( [facility] 10/17/2020 12:23) Final results Test Result Flag Units (Reference) PROTIME 12.7 SECONDS (11.0 - 15.5) INR 0.91 L (0.93 - 1.23) \\BLDo\\INR INTERPRETATION\\BLDx\\ Therapeutic range for Coumadin and related oral anticoagulants. - International Normalized Ratio (INR): 2.0 - 3.0 for Venous Thrombosis, Pulmonary Embolus, Tissue heart valves, Acute RI, Atrial Fibrillation, Valvular heart disease and recurrent Systemic Embolism. -International Normalized Ratio (INR): 2.5 - 3.5 for M echanical Prosthetic valve. Amylase: (LUISANA: 10/17/2020 12:05) ( OhgRcvd 10/17/2020 12:42) Final results Test Result Flag Units (Reference) AMYLASE 67 U/L (30 - 110) Abdomen Multiview: (LUISANA: 10/17/2020 11:31) ( OhgRcvd 10/17/2020 11:45) Canceled Reason(s): hx of bowel resection Reason(s): hx of bowel resection TRANSPORTATION: S IV? O2? Oxygen?(No) Room: ED. 8 Clinical Report - Physicians/Mid Levels [facility] Emergency Department [address] [place] [address] Phone #: ext- [phone] 10/17/2020 11:14 Patient: NI DIAZ Sex: F : 1980 Age: 40yPROGRESS AND PROCEDURESCourse of Care: 12:28 10/17/20. patient was given ofirmev for pain and phenergan for vomiting. she isstill complaining of pain. awaiting CT scan of the abdomen. she takes Oxycodone at home. will give herdilaudid iv 13:27 10/17/20. patient has normal WBC, lactic acid is elevated CT scan of the abdomen was normal appendix is normal. subcutaneous swelling maybe secondary to her injecting lovenox. we will repeat lactic acid on the patient after IV fluids patient has not urinated yet. she also has been having diarrhea which she did not disclose to me earlier. she was recently on augmentin for URI. will send stools for C difficle 15:32 10/17/20. Patient was still having a lot of pain, given toradol and reglan for vomiting. C dif will not come back today. given history of antibiotic use , will treat with flagyl for possible C dificile. we do not have beds so we will transfer the patient to another hospital 16:27 10/17/20. discussed case with [facility], DR Clark who accepted the patient. Critical care performed (60 minutes). Time includes: direct patient care, patient reassessment, coordination of patient care, interpretation of data (laboratory data), review of patient's medical records, medical consultation, family consultation regarding treatment decisions and documentation of patient care- see progress notes. Procedures included in critical care time: peripheral IV placement. Discussed case with health care provider (Dr Clark 16:29). Disposition: Benefits, risks and alternatives to transfer explained to patient. Transferred to [facility]. 16:30. UTI (catheter associated) was not present prior to transfer. Pressure ulcer was not present prior to transfer. Vascular infection (catheter associated) was not present prior to transfer. Surgical site infection was not present prior to transfer. Blood incompatibility was not present prior to transfer.CLINICAL IMPRESSION Acute right lower quadrant abdominal pain of undetermined cause. Diarrhea. Abnormal tests; (elevated lactic acid).(Electronically signed by Marcelle Sandoval 10/17/2020 18:34) 9Clinical Report - Physicians/Mid Levels [facility] Emergency Department [address] [place] [address] Phone #: ext- [phone] 10/17/2020 11:14 Patient: NI ARORA Sex: F : 1980 Age: 40y Name Value Range Interpretation Code Description Data Sumaya rce(s) Supporting Document(s) ID Date Data Source [id number] 10/17/2020 04:52:39 PM [facility] Name Value Range Interpretation Code Description Data Sumaya rce(s) Supporting Document(s) Progress Note [facility] UUVXOi7nEmJPUvMq40/QDCltRXHkj5FnWMqxSVx6FIryBPSeL0KgABJ3jX1yNXQ4ZJuYIcEpWoSyOzI5 lbm [file] ICAgICAgICAgICAgICAgICAgICAgICAgICAgICAgICAgICAgICAgICAgICAgICAgICAgICAgICAgICAg TOJcCPQzUVAiMJVdFSSbJWLqGB5ROKWiLBYiZRAkLDTvJFPtBJReZUVdDKZfBCQrLPFvSZVuYNNxGCCr ICAgICAgICAgICAgICAgICAgICAgICAgICAgICAgIC AhYZNuPQBxHXEfHWTwTJLdCLBpPPBeKNJvYSYwNW8BJAXzCEBhHLVnHSOlQKOjSMPjGHZdAZHuTTAaPB AgICAgICAgICAgICAgICAgICAgICAgICAgICAgICAgICAgICAgICAgICAgICAgICAgICAgICAgICAgIC EtZNWyQGMhHINkZQ9IXMVxOYVyUWHmVDVqEGIrOFUi ICAgICAgICAgICAgICAgICAgICAgICAgICAgICAgICAgICAgICAgICAgICAgICAgICAgICAgICAgICAg XXDgFAZbDCNwAKNuAAFuLZCxXYYsUA9KALMtNRXuONQzJFCvLBEbBAYpLDCzJDTfAWYzATTqXLLoTAMy ICAgICAgICAgICAgICAgICAgICAgICAgICAgICAgIC QuJLEyCYSoJRAhDUJbGYAgQPPeBZTpEHUeMJRwGFDyGG5VZTWzSATnBRPqVUMxVLHaJJVrHHXlQHHwAK AgICAgICAgICAgICAgICAgICAgICAgICAgICAgICAgICAgICAgICAgICAgICAgICAgICAgICAgICAgIC JuQUMxMVJdCTBtINTmFD6XQRQhQDAkEHYvIBWvDTYm ICAgICAgICAgICAgICAgICAgICAgICAgICAgICAgICAgICAgICAgICAgICAgICAgICAgICAgICAgICAg SAScVWZxYVQoQUGsRFSeDVPlBREnUURyRB8NWMDlYSCkYXLeEGXzIBDuBWKmREVuVXCdUATsMGEeVRSe ICAgICAgICAgICAgICAgICAgICAgICAgICAgICAgIC QtDWYxJRYnMAQsZVFsLNYcLYVmNJPsDGYrLJHsMHYfAAAzMS1JSCGyNPWnEXUiUCJtONLdDFLbYUVuGK AgICAgICAgICAgICAgICAgICAgICAgICAgICAgICAgICAgICAgICAgICAgICAgICAgICAgICAgICAgIC ThKSQrKLJvTCNySARnRZHdCI7RIHCwKOHaMMPfLXRa ICAgICAgICAgICAgICAgICAgICAgICAgICAgICAgICAgICAgICAgICAgICAgICAgICAgICAgICAgICAg YLLjPBQqXAXiAWFmSWFeDYQxLOYgRKDjQHNzXO9NQE45jXSsg7N7UTAvXE1fpqa/Tm1RCZulbdQaoISq BH3QFzMzDP0hda1ENnIaVY6hcf7PPQmXJkUlM0E3oO UeYQFoUDCXQuUcL34tVZpaJb51QBcvQILaHiVwVAr2Or8DGeKhS5grDVGfUeL3XXAeXgSfTMpoMA6Xk0 VudCAxDQo+Ou5YKB4mx6ZuEMqbHFJkFF2uma5HHEdKPsDfP6QvgmT6FOZ4LKXeTw7PGGFsAKBrnNBlGQ JbTPOSKxSvL2KyiP54IAJFZf6+DQplbmRvYmoNCjE1 HFHti6IaECm6CH5EQNOwIPz7qEOhHEZfJ6Hrm8WyTc86EKTfTvpxGUI6tjjfpOXmL2BecAA7QOSDLrLs tYPkIw4xDZ0wWOGhTXXhBhV8JRNGEW2BSTTgQTXmmOWdTCClDUXKNJ9SGHnoMKL4NAVpfaOaoJViMBmc XP6WTUMpvzLhDFEpEWXJCGj+Kd7YLY4xg7HgGOslBu QeWO6ihr5LERvYPxVhS7O8lHGwX0H5XGzeKf8YMAVmQDUiUARiRSDXCGslBW9EEN5ttdP6UM9SnFFrJB BeOZNrrAHaFOl6U89pwFMjFWriAX6QUAX+Savannah+Ym4VJDMtJUJiMFNfTaDcBWJZHuDtI4IhC7CFu1PiW8 HvLP17gGwrmvXoQGqeAO0TGO9xQYDrLRIMTD6BgDMn fG7iuvJtLXJiDXRKTuCrE71nrSDyRNRxXXUrDGJgPo2GCFAkZ8CcsoYbuSmtumXqLXUvUVWVPV6NZPpp gmWsjQMjmDcoPW51rHgiUQ9DKx7LGpAiZL4sft7LdKAgKu1QOBHtQh6GLPOlNCPdHOZmXFQ3CSDtWtXt SBixJDSqNJRqNOE6OCTaYHQwXB8LSaAyFTMyVRS9Bf OhRAQzGWUozv1ZWOMfHEGjHqL7EZPyHQObHFZlBEvjFWWsPRQiCNT3VLNhKLQwJH5UBaEoJAIjQJR2Uz NkMGOxPTGkbs8TRCXnFNSwKoX6CQZuSZFaHLWnNEhzUTSpIRJmCWK7FMGuKRPjDE1ETyWgCQJfBTMcBb XfUYUdVCPdrg9QRKAjKVMlRzVvVCZrAMLoMLZkHHwm PRXqYKE4SvVsIGYhEPSiUM0IMaPzSOPwISO9KkPlHWVtFSKzth6SHSWhPKKbMBh5ESZqSMBmNUKaPFcw QJGjNEA0NSW2TRVhBLKfNP9KQbZkNBUfGCU0IPGeFJKvYVBmul1FGUUkIGOnDtA4QIVlCFQrVXLhMOco TPNhZBF8YNQ4PJQbPIAdIP6VHcMcTNjcFXSXWov6LK mvF3a6XHGiRe2OP9Fso9ScDEJoITOZNBirGH9fxiGvCPWjHl1ZH6gLOok6FRF8JhElJvY5MuSjBWLbEX luPOZcSgBpNMLuJfPuFm8gJKf0DXpxV2WbZRLpR4ScK6X6HPQkNNHtBaY1PCXnZOT4GcRmVR3FBw5ZWb D6MEZ4cWNcXr2PPrK6LO7NPUKGK9IYVu== ID Date Data Source [id number] 10/17/2020 03:15:00 PM EST [facility] Name Value Range Interpretation Code Description Data Sumaya rce(s) Supporting Document(s) COVID-19 [facility] This lab was ordered by [facility] and reported by [facility]. ID Date Data Source [id number] 10/17/2020 03:15:00 PM EST [facility] Name Value Range Interpretation Code Description Data Sumaya rce(s) Supporting Document(s) COVID-19 [place] This lab was ordered by [facility] and reported by [facility] ID Date Data Source [id number] 10/17/2020 03:49:00 PM EST [facility] Name Value Range Interpretation Code Description Data Sumaya rce(s) Supporting Document(s) COVID-19 NOT DETECTED [facility] COVID-19 REENTER NOT DETECTED [facility] { PROCEDURAL CONTROL VALID KIT LOT # _[id number] 10/17/20.TAD. KIT EXP DATE _01.26.21 10/17/20.TAD. NORMAL RANGE IS NOT DETECTEDNEGATIVE RESULTS SHOULD BE TREATED PREUMPTIVE AND, IF INCONSISTENT WITHCLINICAL SIGNS AND SYMPTOMS OR NECESSARY FOR PATIENT MANAGEMENT, SHOULD BETESTED WITH DIFFERENT AUTHORIZED OR CLEARED MOLECULAR TESTS. NEGATIVE RESULTSDO NOT PRECLUDE SARS-CoV-2 INFECTION AND SHOULD NOT BE USED THE SOLE BASISFOR PATIENT MANAGEMENT DECISIONS. ID Date Data Source [id number] 10/17/2020 03:24:00 PM EST [facility] Name Value Range Interpretation Code Description Data Sumaya rce(s) Supporting Document(s) Lactate [Moles/volume] in Serum or Plasma 2.7 MMOL/L 0.2 - 2.2 H [facility] ID Date Data Source [id number] 10/17/2020 03:08:00 PM EST [facility] Name Value Range Interpretation Code Description Data Sumaya rce(s) Supporting Document(s) [facility] COL[facility] yellow NORMAL: Yellow [facility] CLARITY clear NORMAL: Clear [facility] Specific gravity of Urine by Test strip 1.010 1.001 - 1.030 [facility] pH 5 5 - 9 [facility] Glucose [Mass/volume] in Urine by Test strip NORM NORMAL: Negat [facility] Bilirubin.total [Presence] in Urine by Test strip NEG NORMAL: Negative [facility] Ketones [Presence] in Urine by Test strip 50 NORMAL: Negative [facility] Protein [Mass/volume] in Urine by Test strip 100 NORMAL: Negat [facility] Nitrite [Presence] in Urine by Test strip NEG NORMAL: Negative [facility] BLOOD NEG NORMAL: Negative [facility] Leukocyte esterase [Presence] in Urine by Test strip NEG DELANO L: Negative [facility] Urobilinogen [Mass/volume] in Urine by Test strip NOR less tenisha n 1.0 mg/dL [facility] MICROSCOPIC See Below [facility] ital WBC 1 - 3 NORMAL: NONE SEEN [facility] Erythrocytes [#/volume] in Urine by Test strip 1 - 3 NORMAL: NON E SEEN [facility] EPITHELIAL FEW NORMAL: NONE SEEN [facility] Bacteria [Presence] in Urine sediment by Light microscopy Tr nick NORMAL: NONE SEEN [facility] Mucus [Presence] in Urine sediment by Light microscopy Trace NORMAL: NONE SEEN [facility] ID Date Data Source [id number] 10/22/2020 06:11:00 PM EST [facility] [id number] Name Value Range Interpretation Code Description Data Sumaya rce(s) Supporting Document(s) Bacteria identified in Blood by Culture [facility] NO GROWTH AFTER 5 DAYS ID Date Data Source [id number] 10/23/2020 07:59:00 PM [facility] Name Value Range Interpretation Code Description Data Sumaya rce(s) Supporting Document(s) CULTURE BLOOD [facility] _CULTURE BLOOD_ [place] [address] CLIA# [id number] SEE SCANNED REPORT{ PRELIM ID Date Data Source [id number] 10/23/2020 07:59:00 PM [facility] Value Range Interpretation Code Description Data Sumaya rce(s) Supporting Document(s) CULTURE BLOOD [facility] _CULTURE BLOOD_ [place] [address] CLIA# [id number] SEE SCANNED REPORT{ PRELIM ID Date Data Source [id number] 10/17/2020 12:43:00 PM [facility] Value Range Interpretation Code Description Data Sumaya rce(s) Supporting Document(s) Lactate [Moles/volume] in Serum or Plasma 2.3 MMOL/L 0.2 - 2.2 H [facility] ID Date Data Source [id number] 10/17/2020 12:42:00 PM [facility] Value Range Interpretation Code Description Data Sumaya rce(s) Supporting Document(s) Amylase [Enzymatic activity/volume] in Serum or Plasma 67 U/L 30 - 110 [facility] ID Date Data Source [id number] 10/17/2020 12:42:00 PM [facility] Value Range Interpretation Code Description Data Sumaya rce(s) Supporting Document(s) Lipase [Enzymatic activity/volume] in Serum or Plasma 29 U/L 13 - 60 [facility] ID Date Data Source [id number] 10/17/2020 12:42:00 PM EST [facility] Value Range Interpretation Code Description Data Sumaya rce(s) Supporting Document(s) COMPREHENSIVE METABOLIC PANEL [facility] COMPREHENSIVE METABOLIC PANEL Sodium [Moles/volume] in Serum or Plasma 140 mEq/L 134 - 153 [facility] Potassium [Moles/volume] in Serum or Plasma 3.6 mEq/L 3.6 - 5.0 [facility] Chloride [Moles/volume] in Serum or Plasma 102 mEq/L 98 - 107 [facility] Carbon dioxide, total [Moles/volume] in Serum or Plasma 24 MEQ/L 22 - 30 [facility] Glucose [Mass/volume] in Serum or Plasma 197 MG/DL 65 - 110 H [facility] BUN 20 MG/DL 7 - 21 [facility] al Creatinine [Mass/volume] in Serum or Plasma 0.6 MG/DL 0.7 - 1.5 L [facility] BUN/CREAT 33 8 - 27 H [facility] al Protein [Mass/volume] in Serum or Plasma 7.7 G/DL 6.3 - 8.2 [facility] Albumin [Mass/volume] in Serum or Plasma 4.8 G/DL 3.9 - 5.0 [facility] Globulin [Mass/volume] in Serum by calculation 2.9 GM/DL 2.4 - 3.2 [facility] A/G RATIO 1.7 0.8 - 2.0 [facility] Calcium [Mass/volume] in Serum or Plasma 10.0 MG/DL 8.4 - 10.2 [facility] Bilirubin.total [Mass/volume] in Serum or Plasma <0.7 MG/DL 0.2 - 1.3 [facility] Alkaline phosphatase [Enzymatic activity/volume] in Serum or Plasma 114 U/L 38 - 126 [facility] Aspartate aminotransferase [Enzymatic activity/volume] in Serum or Plasma 19 U/L 5 - 40 [facility] Alanine aminotransferase [Enzymatic activity/volume] in Seru m or Plasma 22 U/L 7 - 56 [facility] Anion gap 3 in Serum or Plasma 14.0 mmol/L 8.0 - 16.0 [facility]GE 40 [facility] GFR >60 mL/min [facility] AFR AMER GFR >60 mL/min [facility] spital Male GFR In terprentation 20-49 yrs >60 mL/min Normal 50-59 yrs >56 mL/min Normal 60-69 yrs >49 mL/min Normal 70-79yrs >42 mL/min Normal 80 and above >35 mL/min Normal Female GFR Interpretation 20-39 yrs >60 mL/min Normal 40-49 yrs >58 mL/min Normal 50-59 yrs >51 mL/min Normal 60-69 yrs >45 mL/min Normal 70-79 yrs >39 mL/min Normal 80 and above >32 mL/min Normal ID Date Data Source [id number] 10/17/2020 12:28:00 PM [facility] Name Value Range Interpretation Code Description Data Sumaya rce(s) Supporting Document(s) HCG SERUM QUAL NEGATIVE NORMAL: NEGATIVE [facility] HCG SERUM QL REENTER NEGATIVE NORMAL: NEGATIVE [facility] { KIT LOT # [id number] ){ KIT EXP DATE [id number] ){ PROCEDURAL CONTROL VALID ) ID Date Data Source [id number] 10/17/2020 12:23:00 PM [facility] Name Value Range Interpretation Code Description Data Sumaya rce(s) Supporting Document(s) Prothrombin time (PT) 12.7 SECONDS 11.0 - 15.5 [facility] INR in Platelet poor plasma by Coagulation assay 0.91 0.93 - 1. 23 L [facility] \\BLDo\\INR INTERPRETATION\\BLDx\\ Therapeutic range for Coumadin and related oral anticoagulants. - International Normalized Ratio (INR): 2.0 - 3.0 for Venous Thrombosis, Pulmonary Embolus, Tissue heart valves, Acute RI, Atrial Fibrillation, Valvular heart disease and recurrent Systemic Embolism. -International Normalized Ratio (INR): 2.5 - 3.5 for Mechanical Prosthetic valve. ID Date Data Source [id number] 10/17/2020 12:15:00 PM [facility] Name Value Range Interpretation Code Description Data Sumaya rce(s) Supporting Document(s) CBC W/AUTOMATED DIFF [facility] COMPLETE BLOOD COUNT Leukocytes [#/volume] in Blood by Automated count 11.0 10^3/uL 4.2 - 11.0 [facility] Erythrocytes [#/volume] in Blood by Automated count 5.07 10^6/uL 4. 20 - 5.40 [facility] Hemoglobin [Mass/volume] in Blood 13.4 g/dL 12.0 - 16.0 [facility] Hematocrit [Volume Fraction] of Blood by Automated count 41.6 % 3 7.0 - 47.0 [facility] Erythrocyte mean corpuscular volume [Entitic volume] by Auto mated count 82.1 fL 81.0 - 101 [facility] Erythrocyte mean corpuscular hemoglobin [Entitic mass] by Automated count 26.4 pg 27.0 - 34.0 L [facility] Erythrocyte mean corpuscular hemoglobin concentration [Mass/volume] by Automated count 32.2 g/dL 31.0 - 36.0 [facility] Erythrocyte distribution width [Ratio] by Automated count 19.3 % 11.5 - 14.5 H [facility] Platelets [#/volume] in Blood by Automated count 496 10^3/uL 150 - 45 0 H [facility] Platelet mean volume [Entitic volume] in Blood by Automated count 9.2 fL 7.4 - 10.4 [facility] Neutrophils/100 leukocytes in Blood by Automated count 92.0 % 37. 0 - 80.0 H [facility] Lymphocytes/100 leukocytes in Blood by Manual count 4.9 % 25.0 - 40.0 L [facility] Monocytes/100 leukocytes in Blood by Automated count 2.4 % 3.0 - 8.0 L [facility] Eosinophils/100 leukocytes in Blood by Automated count 0.0 % 0.0 - 7.0 [facility] Basophils/100 leukocytes in Blood by Automated count 0.3 % 0.0 - 2.5 [facility] %IG 0.4 % 0.0 - 0.0 H [facility] %NRBC 0.0 % 0.0 - 0.0 [facility] al Neutrophils [#/volume] in Blood by Automated count 10.08 10^3/uL 2. 00 - 6.90 H [facility] Lymphocytes [#/volume] in Blood by Automated count 0.54 10^3/uL 0.60 - 3.40 L [facility] Monocytes [#/volume] in Blood by Automated count 0.26 10^3/uL 0.00 - 0.90 [facility] Eosinophils [#/volume] in Blood by Automated count 0.00 10^3/uL 0.00 - 0.70 [facility] Basophils [#/volume] in Blood by Automated count 0.03 10^3/uL 0.00 - 0.20 [facility] #IG 0.04 10^3/uL 0.00 - 0.10 [facility] #NRBC 0.00 10^3/uL 0.00 - 0.00 [facility] MANUAL DIFF NOT INDICATED [facility] RBC MORPH NOT INDICATED [facility] ID Date Data Source [id number] 10/09/2020 01:50:00 PM EST [facility] ([facility] Name Value Range Interpretation Code Description Data Sumaya rce(s) Supporting Document(s) Inr 0.86 [facility] ([facility]) see progress note by Angelica Prothrombin Time 11.9 s 12.5-14.3 [facility] ([facility]) see progress note by Angelica ID Date Data Source [id number] 10/09/2020 01:50:00 PM EST [facility] ([facility]) Name Value Range Interpretation Code Description Data Sumaya rce(s) Supporting Document(s) Fibrin D-dimer FEU [Mass/volume] in Platelet poor plasma 368.43 ng/mL [facility] ([facility]) see progress note by Angelica ID Date Data Source [id number] 10/09/2020 01:50:00 PM EST [facility] ([facility]) Name Value Range Interpretation Code Description Data Sumaya rce(s) Supporting Document(s) Blood Culture Laboratory test result [facility] ([facility]) see progress note by Angelica ID Date Data Source [id number] 10/09/2020 01:50:00 PM EST [facility] ([facility]) Name Value Range Interpretation Code Description Data Sumaya rce(s) Supporting Document(s) Lactate [Mass/volume] in Serum or Plasma 1.7 mmol/L 0.4-2.0 [facility] ([facility]) see progress note by Angelica ID Date Data Source [id number] 10/09/2020 01:50:00 PM EST [facility] ([facility]) Name Value Range Interpretation Code Description Data Sumaya rce(s) Supporting Document(s) White Blood Count 5.4 10 4.0-10.0 [facility]) see progress note by Angelica Red Blood Count 4.80 10 4.00-5.40 [facility] ([facility]) see progress note by Angelica Hemoglobin 12.1 g/dL 12.0-15.5 [facility] ([facility], [facility]) see progress note by Angelica Hematocrit 40.7 % 36.0-47.0 [facility] ([facility], [facility]) see progress note by Angelica Mean Corpuscular HGB Conc 29.7 g/dL 32.0-36.5 [facility] ([facility], [facility]) see progress note by Angelica Mean Corpuscular Volume 84.8 fl 80.0-96.0 M [facility] ([facility], [facility]) see progress note by Angelica Mean Corpuscular Hemoglobin 25.2 pg 27.0-33.0 [facility] ([facility], [facility]) see progress note by Angelica Red Cell Distribution Width 18.8 % 11.5-14.5 [facility] ([facility], [facility]) see progress note by Angelica Platelet Count, Automated 280 10 150-450 [facility] ([facility], [facility]) see progress note by Angelica Lymph % 19.3 % 24.0-44.0 [facility] ([facility]) see progress note by Angelica Neutrophils % 68.6 % 36.0-66.0 [facility] ([facility]) see progress note by Angelica Clay % 5.9 % 0.0-5.0 [facility] ([place] [facility]) see progress note by Angelica Eos % 5.0 % 0.0-3.0 [facility] ([facility]) see progress note by Angelica Nucleated Red Blood Cell % 0.0 % 0-0 [facility] ([facility], [facility]) see progress note by Angelica Baso % 0.6 % 0.0-1.0 [facility] ([facility]) see progress note by Angelica Immature Granulocyte % 0.6 % 0-3.0 [facility] ([facility]) see progress note by Angelica Lymph # 1.1 10 1.5-5.0 [facility] ([facility]) see progress note by Angelica Neutrophils # 3.7 10 1.5-8.5 [facility] ([facility], [facility]) see progress note by Angelica Eos # 0.3 10 0.0-0.5 [facility] ([facility]) see progress note by Angelica Baso # 0.0 10 0.0-0.2 [facility] ([facility]) see progress note by Angelica Clay # 0.3 10 0.0-0.8 [facility] ([facility]) see progress note by Angelica ID Date Data Source [id number] 10/09/2020 01:50:00 PM EST [facility] ([facility]) Name Value Range Interpretation Code Description Data Sumaya rce(s) Supporting Document(s) Glucose, Fasting 95 mg/dL 70-100 [facility] ([facility]) see progress note by Angelica Blood Urea Nitrogen 5 mg/dL 7-18 [facility] ([facility]) see progress note by Angelica Creatinine For GFR 0.71 mg/dL 0.55-1.30 [facility] ([facility]) see progress note by Angelica Glomerular Filtration Rate Laboratory test result [facility] ([facility]) see progress note by Angelica Potassium Serum 4.1 meq/L 3.5-5.1 [facility] ([facility]) see progress note by Angelica Sodium Level 139 meq/L 136-145 [facility] ([facility]) see progress note by Angelica Anion Gap 5 meq/L 8-16 [facility] ([facility]) see progress note by Angelica Chloride Level 105 meq/L 98-107 [facility] ([facility]) see progress note by Angelica Carbon Dioxide Level 29 meq/L 21-32 [facility] ([facility]) see progress note by Angelica Ast/Sgot 37 U/L 7-37 [facility] ([facility]) see progress note by Angelica Calcium Level 9.1 mg/dL 8.5-10.1 [facility] ([facility]) see progress note by Angelica Bilirubin,Total 0.2 mg/dL 0.2-1.0 [facility] ([facility]) see progress note by Angelica Alkaline Phosphatase 156 U/L 45-117 [facility] ([facility]) see progress note by Angelica Alt/SGPT 50 U/L 12-78 [facility] ([facility]) see progress note by Angelica Albumin/Globulin Ratio 1.5 1.2-2.2 [facility] ([facility]) see progress note by Angelica Albumin 4.1 GM/DL 3.2-5.2 [facility] ([facility]) see progress note by Angelica Total Protein 6.9 GM/DL 6.4-8.2 [facility] ([facility]) see progress note by Angelica ID Date Data Source [id number] 10/09/2020 12:00:00 AM EST [facility] Name Value Range Interpretation Code Description Data Sumaya rce(s) Supporting Document(s) SARS coronavirus 2 Ag [facility] This lab was ordered by [facility] and reported by [facility]. ID Date Data Source [id number] 10/06/2020 11:11:15 AM EST [facility] Name Value Range Interpretation Code Description Data Sumaya rce(s) Supporting Document(s) Nursing Note [facility] System PAJHGw0nIgHJRwXn37/XJSdjOLUeu1XpPByqAEb6JAusXQKdC5NaGNH6aI7uPCI8EQpXWnTfHpJzSmX4 lbm [file] K0juIfDDnfPTRvZh8FJSQNO6TPCk== ID Date Data Source [id number] 08/26/2020 07:56:16 AM EST [facility] Name Value Range Interpretation Code Description Data Sumaya rce(s) Supporting Document(s) *Initial Consult Visit SAMUEL v1 [facility] SRWQWy3fQaLETzAwa8tjDHwfFKMuz0XeAEx8CY5LF0Sihb4Fz8LsDKAxSAYPGHfpKChqATTgS7X9RVfi 1dH [file] lGAAEBAQBgAGAAAP/bAEMABAIDAwMCBAMDAwQEBAQF SHRPFTKWExlIHokPVa1EVEnINZ4CZRBYGhPZUAjYPRMRKEYYOyaTZZsxRVErWOYRJt/bAEMBBAQEBQUF IpAKZgSPQC1UHuZSVrQEOlSYAgEVWfZLEvOYAnBBBwSUGtNBUyDUHiXVJvFNWuKJPkOGBoQZMiBMVt/A SAYEPEVS8lPOUwXUNGKYHTM/xAAfAAABBQEBAQEBAQ AAAAAAAAAAAQIDBAUGBwgJCgv/eJR9ZHITWJJOHjNKUFYVCWOTXO9VVeMTXCISQeKwKDZMJDBEUmFSQm PPtBkrBsYJVHIR0MSuEwIJTBpSIlmXCcXxYrggMjX2Nje6BVjYORVAT4oAHfZXXKYSBVdzT1IlXnnfeA qjyWN4s7l0tgFWaHyRmKmElkGKcIhMmVdrtzQlself kZdbelK0czx3tEj7ncUWitnOoUgF4wRX8zzF7Jqo8zXd4TYx1+yw0uJq6/T19vf4+fr/xAAfAQADAQEB AQEBAQEBAAAAAAAAAQIDBAUGBwgJCgv/tDY6QVOZPNAQPNQXBoVKZUHRLxjVBZZXLDVBHRYBOwNTN1Aa WuSkpMyXRwSxrwIQDqOK3ATdzkPBJsV98XIgRssPJm FwRNtyLAE7GFj4C6HHTbgEFLjIQVHRX7oWKbMkBKTnzJssx8Q7mrb4iWwIo2TJhmmUoXzEq0JDsrsAeR tdc6Twwjtzfuycj7P8pyv8lncGu1XGnruWwfrB43ZP1xvK5tuf8+Qm0xgv9xpl2/T19vf4+fr/2gAMAw EAAhEDEQA/VJlvDENJTu3FjdvxO/KnZB/UmA7pgjIK xl9zcqSSa2UT9Rc/IJ9846jTk8yFc0J96piknAdqZDZWL4jX2R+ILDw/w0AE97iog9jcmiRSp797Rujo a9z+gGScAViw+FLnxHcpqnjU+TCLcqWS4OwJ10/kYE58S8GlctQ2od3M6f3lgy0pgFwCVZkH3NvuhIrw 7dbO35RfKzl7gg2/br60tXj6uVBMA/FSXNtqGlwgLF 1xdikulsv6UwGJIzQMf99n6i3J0sUU+A/OqH1NoRMWDNzn0MSZXA8fhI/Km4Pov/fVz7SI4BBHvogR/I V7oOc8kKmzIdDHQXm+VL+IBJDcSFNV7cQETvh0fplRPnm+xOw9xwFsmTZxCnEggIkKOWHK/fIGys8zKO wI5wv/UAsEuWm8R8TaJY19knDqRsVdP3F+VKoHp+lK uSKOsM7izszLmqVb66+IWtXzeuYK7S4Xwk1HwI2WNwor1knUqBQZErWsbkdanT9NDAsyIyKZGdZbkQFZ TvvDs6G+LCm3WKLdT6JjtaIxznwYpHcxHFKlCg7piwBQYQe1St712yq5PHbA2CPSoyd8Cn4QsXhlrYgC NKF91prWrmhgjWveGwXsTzj71vL0Z1HyAVM4ZnOVzG v7CqsLxLTUwWuHOW6INwHyHRg3x4Z794XTH/b5PAlGYeu5aSt3lJ72RJ5kFx8gEveG5jBURuhhwZqGPK A4rq/assistant golf coach+XxOh59p18j02htYS6F6/hdfqyuYpG3B0h2gX1qDdD773vs0C0xG5w0fp8pa+NMLWe9wjunA [file] zW8rsJBR+hammer adjuster+qfOXnymSlbCzq/dNc7+vS7T81/Aw8b [file] 3XHKGDE2CZJc== ID Date Data Source [id number] 08/04/2020 05:24:31 PM EDT [facility] Name Value Range Interpretation Code Description Data Sumaya rce(s) Supporting Document(s) Discharge Summary [facility] WLYCSx6lSjXRSlYn96/MNHmtHREdr4NvUDzsXXd2YFerXJHhJ8CuBRM5fY9sYII5HJiSOlBjXoZmRBL9 lbm [file] AgICAgICAgICAgICAgICAgICAgICAgICAgICAgICAgICAgICAgICAgICAgICANCiAgICAgICAgICAgIC AgICAgICAgICAgICAgICAgICAgICAgICAgICAgICAg ICAgICAgICAgICAgICAgICAgICAgICAgICAgICAgICAgICAgICAgICAgICAgICAgICAgICAgICANCiAg ICAgICAgICAgICAgICAgICAgICAgICAgICAgICAgICAgICAgICAgICAgICAgICAgICAgICAgICAgICAg ICAgICAgICAgICAgICAgICAgICAgICAgICAgICAgIC AgICAgICANCiAgICAgICAgICAgICAgICAgICAgICAgICAgICAgICAgICAgICAgICAgICAgICAgICAgIC AgICAgICAgICAgICAgICAgICAgICAgICAgICAgICAgICAgICAgICAgICAgICAgICANCiAgICAgICAgIC AgICAgICAgICAgICAgICAgICAgICAgICAgICAgICAg ICAgICAgICAgICAgICAgICAgICAgICAgICAgICAgICAgICAgICAgICAgICAgICAgICAgICAgICAgICAN CiAgICAgICAgICAgICAgICAgICAgICAgICAgICAgICAgICAgICAgICAgICAgICAgICAgICAgICAgICAg ICAgICAgICAgICAgICAgICAgICAgICAgICAgICAgIC AgICAgICAgICANCiAgICAgICAgICAgICAgICAgICAgICAgICAgICAgICAgICAgICAgICAgICAgICAgIC AgICAgICAgICAgICAgICAgICAgICAgICAgICAgICAgICAgICAgICAgICAgICAgICAgICANCiAgICAgIC AgICAgICAgICAgICAgICAgICAgICAgICAgICAgICAg ICAgICAgICAgICAgICAgICAgICAgICAgICAgICAgICAgICAgICAgICAgICAgICAgICAgICAgICAgICAg ICANCiAgICAgICAgICAgICAgICAgICAgICAgICAgICAgICAgICAgICAgICAgICAgICAgICAgICAgICAg ICAgICAgICAgICAgICAgICAgICAgICAgICAgICAgIC AgICAgICAgICAgICANCiAgICAgICAgICAgICAgICAgICAgICAgICAgICAgICAgICAgICAgICAgICAgIC AgICAgICAgICAgICAgICAgICAgICAgICAgICAgICAgICAgICAgICAgICAgICAgICAgICAgICANCjw/eH VbL9sacGNwcsV9W3jvPo3PRu0YPA9yz8NeJQMqXVfp lrIoCrbFOtWyKTZgQdhCQbq9PQdcZR9TuPPpI5DlA0RkOKhdLM4ULHAkXAIgoHOaSQXdXARjRrD6OAWk XRzqUS9VyGOiKKieJJViIPJbNfKpDQUdYOKwCCUuYBYvUHNRUDJdGXJtOtKhTTirHE1Jj1IrgNU8KWx+ Tl8TVC7ho2QaSMysGPFaJA2teg9NOPxZVsOeB5Oktv A0DWA8XFNaHf3VMGDaEHXbmNRiDGAoAXEZUxPbD7MidV64NEFHQp3+IMddqqTpWtwIAhE3FPBms6ZbNG i0GV2YCAXqNNv9zHQfQRgeF9urbwbtSAM3rM9qwfrcHfhvNGoaffEjTIWIBPkkkrDoAN3DTAA1CYMtCw F1SzSsVoZhLQJ9DBNrCV7vDRszIL3CLZT8UYjdYUKh PYJvT7dJXgDfDRpmTNFzqMeiTZ9JCdRaE5HujiNhfKXiAKNsYQJKKp2+MEiyghYwDxfWQaJ9PUWvi0Wr OPm6TH0PICVxMXccBM7AIYLabV4iIWfaFT2GFzHaKwFmAPNVFjXmN07ycXReCSj6A4VtAeCeYFHrJyvr ZXMgPDwvTmFtZXMgWyBdDQogID4+ID4+LWqeWH1YKP vyblWoAQTfIm1CPQBuDWXePR6bKDRpAHExI5Q4sOccRJHYBmPcD3uscekiXF4yGZAnE927mAvvhdHxEE S8SMUzAo5CTEMwIGT9KQOshZTxKbTiLWDPAPvrTB9KhCGtNZW2sM6dOLwaETIuZMEdQ7rOZtZhnNvjVQ 51bGwgbnVsbCBdDQo+Wb7RLG9mv1XoFLp3drBuBOyb SXK2AShwEWPiQETmLQJsGSL3QTP9OPYTIvDdFNTmTHVtRGtpBSTaOBYnqa3QJQYoHLOrDsR4CoNwMCWo LBAkKEhfRXFtXVC9OFA3JIIiCIGdTZ7MIaPxTQDiRASoDEnuOZZoKSChoc6GIOTyXNPuFeg6DzNyQDTg NASaFTddANHhTTCqALB2UUXoWFBkQT7QMqEkWBIjOU P5LxYpLTVsLUXghc2FBIQbSJTbDmAnJLWaOMMuRLLcIBpoXJMnNUCoUXS9KRWyZDRvFJ9ASfZeKVZcDW J9HYFsXTMcOYIkpu4ECUSzYCOvGwM3JqCwGPSrSDCwZFbvNAYzATKuFyqdBCMuKWOjOC8XQpEeMKBpJW BjUfWoPCPcBEBabo6XPBPnLYYoHLMaGiMhGAIsGEWp PCqyXTRoCUP4HXf2XNPvTPEdAP3NWkTiCLIiLKKeTZygNFBtLSWsfj1FWPNfBOXzEqZ9PJRcZFQlZEKc DIklHPGuEYD7UCB6KXGfGPLwOL4MEbNnYEHjVAj5TSRbIDKyYQGjqm9ZDDLfTDKbMrqlQYCrPSRkDTIu XKozIYNwPDW1ADteUMWoJZKuCI1NLaTfPPBgMPtdDD HjCSRfBGAndk1NFQFcHSIoGNN5QBVuCDUuEFNzAZgtEUPyNCHoDfN5FZGgVKKwZN3QQqNjLXUfCrG1Ux ScLWNoPTHlsa0QOYHwNCCxEBYqEBIaMMHoGKVbKJobGYCeOPGpUYptMTYeYGVgCF5QAkKcOFAkNoC9SB DlVZUvPDBhhm1KLTEpZRSjIYq9OMHiDNBgURYhJAuc ICRqZCCdRGU8JHTcBDNgDC8NTbTeXMDxTwTyATUnGWAlNHQsfo6WNHHoSGHzRaVbOCByYPJpOCLzDSdt XODzLCSoGBO7UTStQMSpMG8DVjTiYCQyUjGgFIPnTSFzAUVizc4TLFBgYUSyAFG1BGHfKVMlNLFeYHum UKAzDXC6FAX5OXTyPXLeVX5QBcJkHBmvRQROIwu1ZG ogC4h7SAJnMo0II0Gly7ToTaBeQEUSGGcpMA7fbfCzIRTvOn2MG8qZLyzxRmdaNsN6MIW5YMWyGmsrIe T8NiOoHEXtDMO3PnXzMI6hWKD8GtU6HrT4SMz0ZICaMoIaRgbtTVZ3QjD8FBVhCMLsLpYiXJ0BBl5EMj F5OAP3mYGnWx9LViG4XBiBAuVgQJ6CSQu= ID Date Data Source [id number] 08/04/2020 12:01:45 PM EDT [facility] Name Value Range Interpretation Code Description Data Sumaya rce(s) Supporting Document(s) Progress Notes [facility] MQGCBy9fCwHHTwRg50/ILWtiMEVkd2AwEYfyYCu0MJmeOVSiU0IqIWV4sE3fIRL1SUwVHfVnEzElGJK5 lbm [file] 0gDQo+Lt9Bl0YcinQ6fnQbAUmeViB1BX0CLLPIM1CULe== ID Date Data Source [id number] 08/04/2020 11:44:07 AM EDT [facility] Name Value Range Interpretation Code Description Data Sumaya rce(s) Supporting Document(s) Care Plan [facility] IDHQVy5gHrSGAhNn75/LLNxhVVRzp0DmUUptDCk9FQbuWIMfZ4YdVWR7fJ5bMFW0ENlXBjViFmYrPSL0 lbm [file] ICAgICAgICAgICAgICAgICAgICAgICAgICAgICAgICAgICAgICAgICAgICAgICAgICAgICAgICAgICAg ICAgICAgICAgICANCiAgICAgICAgICAgICAgICAgICAgICAgICAgICAgICAgICAgICAgICAgICAgICAg ICAgICAgICAgICAgICAgICAgICAgICAgICAgICAgIC AgICAgICAgICAgICAgICAgICAgICANCiAgICAgICAgICAgICAgICAgICAgICAgICAgICAgICAgICAgIC AgICAgICAgICAgICAgICAgICAgICAgICAgICAgICAgICAgICAgICAgICAgICAgICAgICAgICAgICAgIC AgICANCiAgICAgICAgICAgICAgICAgICAgICAgICAg ICAgICAgICAgICAgICAgICAgICAgICAgICAgICAgICAgICAgICAgICAgICAgICAgICAgICAgICAgICAg ICAgICAgICAgICAgICANCiAgICAgICAgICAgICAgICAgICAgICAgICAgICAgICAgICAgICAgICAgICAg ICAgICAgICAgICAgICAgICAgICAgICAgICAgICAgIC AgICAgICAgICAgICAgICAgICAgICAgICANCiAgICAgICAgICAgICAgICAgICAgICAgICAgICAgICAgIC AgICAgICAgICAgICAgICAgICAgICAgICAgICAgICAgICAgICAgICAgICAgICAgICAgICAgICAgICAgIC AgICAgICANCiAgICAgICAgICAgICAgICAgICAgICAg ICAgICAgICAgICAgICAgICAgICAgICAgICAgICAgICAgICAgICAgICAgICAgICAgICAgICAgICAgICAg ICAgICAgICAgICAgICAgICANCiAgICAgICAgICAgICAgICAgICAgICAgICAgICAgICAgICAgICAgICAg ICAgICAgICAgICAgICAgICAgICAgICAgICAgICAgIC AgICAgICAgICAgICAgICAgICAgICAgICAgICANCiAgICAgICAgICAgICAgICAgICAgICAgICAgICAgIC AgICAgICAgICAgICAgICAgICAgICAgICAgICAgICAgICAgICAgICAgICAgICAgICAgICAgICAgICAgIC AgICAgICAgICANCiAgICAgICAgICAgICAgICAgICAg ICAgICAgICAgICAgICAgICAgICAgICAgICAgICAgICAgICAgICAgICAgICAgICAgICAgICAgICAgICAg ICAgICAgICAgICAgICAgICAgICANCjw/qZNaH1xrpGXgxrX3A3jxLo2DMg7VIT8vh4PzZMZcNZgztkYv WwdULbFsXFGfQfoVQef2DTyeFP2EnCMqO0PbH4BcAD xaCP1GLMXlQZZadNMrTKJoAACmRwL1NRDvFFtpKD4TpJGzRBboFNEeSABzNV0GKXTgK424pmMyQK7FHk 6XDtRuIQ1hpg6OQgRxNGUcBzvNNmq5CWbbLJ4LzYVqwGLlNfQfWOJBKyAeX4nvt3GvCvLzFGLBVPmbLY 9Db0UnkQJtZZn+Kk3QEA2bc2DpNLrsTbRjIQ8bda4A UOuHNaEjW7ZxzSzwYZAptiHnQPjproWbrHVOIYRktozgTJBPhtR3q9v4YSJJSpBdkPAcIN1vPZ9oPSLc QZZfGsAwHIBOWK9VLQJkYKDtcFRbNQVbSCJMGI3KRLbsFAL3PxtiemRuoXUuTBhbCT7TVITezsJsYzAt MCBSDQo+Ku0WPJ0co1YhHPclKpFnNI1tvc4YFAfRHm YuE4Q5jVRbX7D0KDvtBj6LYLIcLRXzAbMgITJZSRvjJY0KLU9oetC8TS8OoFDyHGKfIHVriTHhJMg0P6 7eeBTkANrxGQ5ETKN+Savannah+Wn5KIKNhKAApHDXpNzKdWOHPOcAlN7HeJ5QJk4DvE8KoFV19rCowjcPjBP dgEK2GZU6iFFXmWSOMVP2AtFOglP5qimEaWRXyGDXR MvRzR86nrECdSOOsISG4YOUyKa9CWJFsU4GxqyBuaZskfmNnTQLdLUGWSD3OMQlmouHyfNNxjDsgPL67 eHlqIA2QIw8ZGeVaGW7zwz5LdDPlZx2KEYVoUD8TVWPjFLEbFWLkNXG3IRLzIfRjHSscVPWmOPFhAAZ0 MVHjUQXcEP0XXgHjVUBxHsC0YVFcNWRcTKBxhd0EAN CdBPXzEcH5FwRaVVVcTDHfNSvsFDCqFQAxXIE5LPRtRLQmFI6FYgFkBNNsHBPlNBSsKNGgTHTcxs0NXO GgFAIeDkGaLaCuCYZlIMRfMZxoSAVxUSZpRSW6FNThHIFiLJ4IKvPsGIMqPYEbMaJbLTAkUYFybf6OXA LaIVXyLxV2GEObWDFmNXJsZMliKVWwOLZ5FTA1RUTw JRTmKL9QIwExELPvNFW0FVVsYQHvSWThly0EVSVxDWJrQFu8ZUBhWKWzCOGuXUcgAEQmOMR0XuP5TIJd FMVnXS3TLlYxPZVfLNu8CZLiRYYpKUHlff7PDNClXEZvIhx2AvVaEXSiHFCyMByuCCGzGAB0QPJwKPHo VNSkWO7IRzVcIEOfICrvRLluGJDwESHwam9LVJSoBG KiEUY1WJPlBSQzERSrTNkaOZUxNDT9Kwb1EMHnDITxEQ7CFeJiCYPeRMf2IrEvSKRxLDNcir0NKRAlAV AvKZYbTcKmCVOzLLMiHCutTJUhJITcFuEoUARzHHNrFM5QMqItUYLaMsU7BwAfHIRcALKxou2TOAUgLC MyWYJtHeSdDTWvTGGqIYdrJKEsPGTvPdA0NCPqUDSg AG5RZlYePXHjUvI2BQRuYJRrRGYfgt8ETVSfLRMxXvb2WqCaZXYoKJTfJUh9eeWsnPWdMIs7BP0JB9Ti hqHrQxiDUe3If623DAQ1YYRnSq0GJ2glRc7zUNAaDKBWAx1BJQl9UcGdEtUkNObcEDHhFfgiHSkrKvB0 Eow0UtKhNuZeXYb+NNrhSMH5I1NqQeL6RcRkWNVcMM VgEAztCua4AET6JECgHA1zCEMPLw5+BOslcSRrpVysYFDAJaBwXFO0TAurJWJQPk2I ID Date Data Source [id number] 08/04/2020 11:38:04 AM EDT [facility] Name Value Range Interpretation Code Description Data Sumaya rce(s) Supporting Document(s) Progress Notes [facility] YFDSAb9xVmFFRzMq47/MBDknLAUty4UlLShsVHf7PUfcXVVkI5PfWMR0mM3jSPK9VXmVAoPcHxPaMJI7 lbm [file] CPhksFZniBmoPATWUpIaFTMuHPegIBLADf8Q ID Date Data Source [id number] 08/04/2020 11:28:35 AM EDT [facility] Name Value Range Interpretation Code Description Data Sumaya rce(s) Supporting Document(s) Progress Notes [facility] YWFIZa4aUcAXVfHt54/EMUhuYDXco8ReWKsiHOk7DCuoNFSiT0CuVQU1sC1qQFS1GMuRJmYfTjKgUAY0 lbm KlBdjKYmKsSDMiKofRMuOlBLrfRdyhhCLvXO1NlJY6JVPvO73fHXSwVWEyL2AuUMW3ISx+Bd8VTHYviM HnLH8QTjfP1Ehdv6y5MP5jrB/Oi0GRkEDaPyWntNjMzk0gMl8cBRfAZMjf1aoEkA4i4fMet2Kw3+eEO7 AdOkmBtg/FCpqq27pruIMC0+8fdpBpzjlb/F/+mlnJ zmfs66/EqhiUt83aD4Bm3PLvtpduD+5XJW4/aQZNEkR7YO+BCPB7iNYthpDnuGD1wXh8jc6K1X+E7PlL g7gT5YMBFf8maWlJvF5mE0y7SD5eeIealOg5gxHsKHa5zXJAlafn70pZRPeI8dQTPMnKJYcciIpOsAOF syvuaooWN96babXebgtfdPFWY/glLZD3XkoieS/rbr [file] WMU0JCYt== ID Date Data Source [id number] 08/04/2020 11:27:49 AM EDT [facility] Name Value Range Interpretation Code Description Data Sumaya rce(s) Supporting Document(s) Nursing Note [facility] MBJPOr2kZxIHCiDu90/CBJwtNLZsl5ZxBBquDQr1RTogENTuQ3AmUVB7qO2fHTO3LLsAPpLlYgXyUFZ7 lbm [file] BoPXbgXNL2YzdeHViwZWPjYNBcQ8RhMmIkLR6XAm7SLlI7HTM8zABmWn1BCvT7IHxBJxXpFY5ONCd= ID Date Data Source [id number] 08/04/2020 05:28:00 AM EDT [facility] Name Value Range Interpretation Code Description Data Sumaya rce(s) Supporting Document(s) Blood Urea Nitrogen 13 mg/dl 7-18 Normal (applies to non-nume zaina results) [facility] Creatinine 0.61 mg/dl 0.51-0.95 Normal (applies to non-numeric resul ts) [facility] N-Acetylcysteine (NAC) and Metamizole lemus ve the potential to falselydepress Creatinine results. Baseline values before medication adminstration are recommended. Patients undergoing treatment with phenindione will have falselydepressed results. Patients on phenindione therapy should be tested with an alternativeCREA method.Toxic levels of acetaminophen may lead to falsely depressed results forpatient samples. Glomerular Filtration Rate >90.00 mL/min/1.73m2 [facility] GFR Reference Ranges:Normal Function or Mild Renal Disease,if clinically at risk:>or= 60Moderately decreased:30 - 59Severely decreased:15 - 29Renal Failure:<15 Please note that the MDRD equation requires an additional adjustment forAfrican-Americans (multiply the GFR result by 1.210).Glomarular Filtration Rate (GFR) is estimated based on the MDRDequation, which assumes a steady state for creatinine ([employer] Int Med 139/2 137-149, 2003), as recommended by the Nationaldney Disease Education Program in conjunction with the National Institutes of Health and the National KidneyFoundation. The [place] method used in calculating this result is traceable to IDLA standards. Glucose 97 mg/dl 70-110 Normal (applies to non-numeric resul ts) [facility] Sulfasalazine has the potential to false ly depress Glucose results. Sulfapyridine has the potential to falsely elevate Glucose results. Baseline values before medication administration are recommended. Calcium 8.6 mg/dl 8.5-10.1 Normal (applies to non-numeric resul ts) [facility] Sodium 139 mEq/L 136-145 Normal (applies to non-numeric resul ts) [facility] Potassium 3.8 mEq/L 3.5-5.1 Normal (applies to non-numeric resul ts) [facility] Chloride 108.0 mEq/L 98.0-107.0 Above high normal [facility] Anion Gap 8.8 [facility] Carbon Dioxide 26.0 mMol/L 21.0-32.0 Normal (applies to non-numeric results) [facility] The above 10 analytes were [id number], ,[place] [id number] ID Date Data Source [id number] 08/04/2020 05:28:00 AM EDT [facility] Name Value Range Interpretation Code Description Data Sumaya rce(s) Supporting Document(s) Magnesium 2.4 mg/dl 1.6-2.6 Normal (applies to non-numeric resul ts) [facility] The above 1 analytes were performed by [facility] [id number], ,[place] [address] ID Date Data Source [id number] 08/04/2020 03:47:33 AM EDT [facility] Name Value Range Interpretation Code Description Data Sumaya rce(s) Supporting Document(s) Nursing Note [facility] KAKHJs3xVsDBHnDa00/PDPvdRZUcv1QkRTpeQFv1BEshBVQnW5TtBKS1zP3bVXU0LAaCXvPcQjPxPDI5 lbm [file] UaLtVWzlONHVMk4L ID Date Data Source [id number] 08/04/2020 02:05:26 AM EDT [facility] Name Value Range Interpretation Code Description Data Sumaya rce(s) Supporting Document(s) Care Plan [facility] BOHHRg2sNvKDDmPh49/PAGdhCYHas6JpCSwiAId1MPctVWTuB6CuZTM6fW0tTBV7AXbJYcXxJkXjRPQ7 lbm PmIphQIyMnCEGjQalAIzMxXOtyYrdpzJHxUP6CrSR8TRWeH59fEBOaVFQwN4KhIRU2OZg+Pu8ANDFqaS RcUL8OMdwU0TmCg5o5JC62wr9KxdDnmV7YQAy83wHrlx3zLg+sl2plbYaKxmTYyMr80faTAXUkgQsVAc AtuWaXHDG4Ycr7385PZGZf38u4auzBVUv+qsfUSNaf sR9/OOpflwowtF1SH9XTlu7G10R+RuLLDqcmSqVCP/xJ5TKhM1niXCxQzJ3HmnQKKmdXa/K1kF6+1Pww gF/d7bsOB6I25J1Jhwy7ctQbIjcbAWV5kz+zIrN726hSsOMjqd5OMCEB512u7k6TuQc1EbmRkl91cvaa bPjqUFInwfklczFFPArgjylCso3X9x4a2tvgOfEZgy 3jxUFNY2gQoqIXc7a0ZIFnKtomVs6xCRLG73qsZDT7dpzADWnbqdFtHwPKrmBeQpUUK+y7IrsFXWKYyz H7pvj6/fFzUm2fIRknCTfOBXbR7bF1KkHNEr/HTxKTRnE3ZgfVZp/Gi/ksoURgzKENlf1UlKlBhcgWe/ 7s01b7y64n3LNT6b86PeTEMOe48RbxNunwz4za19aM [file] MCBSDQogICAgICAvRjEgMTEgMCBSDQogICAgICAvRj YqIVNtSMUBLRzkIBWjZCNlYiPxWCnyHAIAXl7REqGcZYOvEB4mgiEkzKT5UIS+Br9WJCTnOR3EbLZKU3 QwjEYkDKerF4QVSU1RBQF8AC5UgQBlZU1RwTVYN4FyrNLqOp2hWEUpi5CrWf1mH9RRQPVPVJBkJTcbJK keNPIsCDd6B5K9YDMqG7FQE698wOJlqTj6Zi1yC9GG QAdRZaXvQLomJFbcHZQpNTv3Y9V5VUYcB8SRX0CfZwApbjStG6R+YxHdESHOSG3QRUQTZWg7N2E4lTCu A2V7pLdFnJW0QL9SSV4NrTFdnBHwu84+SdPVUhKlMSUrX8QOCQYJAoUsSLzxOVayDTGlBWp0R0P6UKDb S6ANL1wfG0q4ZC5+DiDJJzHdCNVzDb6KWzQvKz9JJx BuKC3wjg9MLCegXLYlAbuOQgj1C8nuler0aKPaDtU4R6X5WcF9eTKrAZ2YI6J6qUNjOGA1WGNqkWF+Pg 4Cf6AcIBIzYIi7L9upYBWfEDGaUgZfnC82E++8hrlahUN9Z8m5REEFfLOzzVqGttBzN9eOFYN2m6S7SY c/Rr7JFBV5gUr3hKUiNTZbWBh6iU1hnDe8KbKgVR42 VQOsXOnmpI6lNlj4L7Yjg7TcIb9bFd9oyQDjKu7SIxQzWOG9wyOfMbTEIyE4cXgolhxhMFB6P2w3tUL2 Si10i3kzbfLwj2VgPtI8XApiENSwZpNejwKxKAX0cfCnsN2idpHyMj9OPHNzYDznhwSoOcZNGl0KKlRs XF90TftyzR1tiEE+DQogICAgICAgICAgICAgICAgIC AgICAgICAgICAgICAgICAgICAgICAgICAgICAgICAgICAgICAgICAgICAgICAgICAgICAgICAgICAgIC AgICAgICAgICAgICAgICAgICAgICAgDQogICAgICAgICAgICAgICAgICAgICAgICAgICAgICAgICAgIC AgICAgICAgICAgICAgICAgICAgICAgICAgICAgICAg ICAgICAgICAgICAgICAgICAgICAgICAgICAgICAgICAgDQogICAgICAgICAgICAgICAgICAgICAgICAg ICAgICAgICAgICAgICAgICAgICAgICAgICAgICAgICAgICAgICAgICAgICAgICAgICAgICAgICAgICAg ICAgICAgICAgICAgICAgDQogICAgICAgICAgICAgIC AgICAgICAgICAgICAgICAgICAgICAgICAgICAgICAgICAgICAgICAgICAgICAgICAgICAgICAgICAgIC AgICAgICAgICAgICAgICAgICAgICAgICAgDQogICAgICAgICAgICAgICAgICAgICAgICAgICAgICAgIC AgICAgICAgICAgICAgICAgICAgICAgICAgICAgICAg ICAgICAgICAgICAgICAgICAgICAgICAgICAgICAgICAgICAgDQogICAgICAgICAgICAgICAgICAgICAg ICAgICAgICAgICAgICAgICAgICAgICAgICAgICAgICAgICAgICAgICAgICAgICAgICAgICAgICAgICAg ICAgICAgICAgICAgICAgICAgDQogICAgICAgICAgIC AgICAgICAgICAgICAgICAgICAgICAgICAgICAgICAgICAgICAgICAgICAgICAgICAgICAgICAgICAgIC AgICAgICAgICAgICAgICAgICAgICAgICAgICAgDQogICAgICAgICAgICAgICAgICAgICAgICAgICAgIC AgICAgICAgICAgICAgICAgICAgICAgICAgICAgICAg ICAgICAgICAgICAgICAgICAgICAgICAgICAgICAgICAgICAgICAgDQogICAgICAgICAgICAgICAgICAg ICAgICAgICAgICAgICAgICAgICAgICAgICAgICAgICAgICAgICAgICAgICAgICAgICAgICAgICAgICAg ICAgICAgICAgICAgICAgICAgICAgDQogICAgICAgIC AgICAgICAgICAgICAgICAgICAgICAgICAgICAgICAgICAgICAgICAgICAgICAgICAgICAgICAgICAgIC SwPCOvQQMiMKWaNTUsDTDvPPEwQHEbAFYhMFDkLQIdPPp5L6nmRPTeKOApMG9yFYq7Uu7+DQoNCmVuZH V9geSdrK4EQS1nh7AgVJdsLDZen6MzLZl6TE6WTZRt GWrpKC8WYEddcg0ZEXRlXQPphZQGb4ccXgHkUVK0OEElXapzYZ1OBBLnO9jtgtBjNLBvORARSB0TRfRu C5VyqM66YWEHIi0+CBvfacCfQvfKZyIzDRPez8IzNFm4BJ7KKPEnWqdru9DgMlPqCVNUXOwtFG5JKSE9 AGXvJTWkHb0SDZQjT363pfVyUO3JYk4CWjIpSH9byb 9AXbZdLJQsJybPEdt6HLurHB6QhJXkCFpADJLxBSOhXT6cCggkJCaskXBXbCCwN4YyGUVKBaXwtARtUZ 3xOK3kPRUmXIJkDtQ2AZMBLA1PDGArGGOuhNUpNWJpZJABBX8DYFleZID7NnaykbPkkTHaFYmfGZ7QBQ JlbnQgMjAgMCBSDQo+Qw6HER8uf1XwXHuwLcHzSP9a kr7WLWzDTvYdG9E3xLTtL3A5TQoeXm7LAFGuKXClJYtaHKHKQOkhOW5ROV4xalG8LS5YbJCoEXDjLKVb iXKeEAp6M17fbZFrCXwkPL9VQLV+Savannah+Rh2LPVBtEJDuCJXaEpLpYHVWXgWpU0WzS4YWp6NiB1ZbXO60 dVmpyeExDNnuXD7JAO6jWVFcJFRVPL8CqZNwpG4shi AlWNVmANMBCyZsJ96jnIJmMBXyTLV1ASYhNa5HTHHyL1FabcPopHstmkYoXVWyFRAREW5FDKxdwrJffP UltOzzSX95eVztPG9ZWi9YFkIiXV7ovi2VuUZfJf4RCLLaXe5NXISdMVLrMKWhSQB8QYSdZpAtKFczLS EfLIAhBUX7EBAvJKNxSO0ALbWaNQXgBZt5DnUqPYBb KWFtiq2IKKAhUOQjHXU2SbPhMHOxVCFkDWypZRYrDVCdQHT2JOMqTGOgHV5RWeXmWJFtOOI2GNaoPVNp SCVbhp7PRPZnMGLkChYvSLAkTUYgPIVvAUqjAPEmLZNtLGM5IDNzNXIgJR3NInEuBUIvYNUhQfBmZGUb RYVfvo3GVEUoRYQmTsV1OULiTZNqMFCuBQgnAVCrBL I5TCN1JTKxFBPlKP5UOqOnFHIqQNA0VQPvNIKtPUMxsh7AAPVnLHYbGTa7WuMxZYFqVBFtGMelUPPeEY I4PQYwERAmLAEqIO9LNpFdATFaBOWmZTYyHYXqMAIynw4QUZQwTHFjOgH5GaKpMOGrZBJdPVipSLQpIU Q1MrPaQXXqMISlLN6AJzVvQBAbNRs7LXXrFZObMGMr po9MMWFiXAGzPrT1UuHoWVGsLUMcNZvnGMQlGFY2BHV2QOChFVFnPU9KGlKdVWTzEVz2UcRuNHRpQHVe it0IJBZvQPAsIXZ2GxWnWFPbDRNmLGpyVIUgYBC9All7IZFsCVIqIX6DCoGqGUkvVRLKDej2RQqrP2w9 JAOeTi3PW8Qqe3WxGxUeOZIKNDoiDJ3nylFlKUVnDl 3TV6vFGsjiYgRoBDPcEpH3UVGmFxDpPSHsHHRpOQRxKpA8H6DjXe6wBCLdXjEgHFZqWuQgSSQcWnAgZa W8YAS7VTDiKCizJNXsQsWoRU0TTy2YVdJ4IFR2aYTcFr4APBumDe6SQFNTA9HSCp== ID Date Data Source [id number] 08/03/2020 08:16:36 PM EDT [facility] Name Value Range Interpretation Code Description Data [employer] rce(s) Supporting Document(s) Progress Notes [facility] ETDNOe3pJaLGLkQr19/ODKgpNNSny1OjHSndHKg2QUopZKYpU0YbIDG2pX1kJML2JTjNZkVxRvTvOEH7 lbm [file] MDAwMDAxODEzOSAwMDAwMCBuDQowMDAwMDIwMDcwID GpWJEmOW0RNtZlWZRgDaGeSkVaHDTpUAXfoy2PONQhPQCkMJXxFJNjPEZpGZMuMRtvFZZkJKMkARM6HY LrFBWjNU9QChNpEALvPrT3ImQyEQNnZVPjfm4SYWDvQAZoIzS3HTBsJFHgJWBdMNvjKGQwHNFwYfnoLB ZsYKCcLO4PBrAfHTDgXaA1BrHuRFVuOWTcwm9TBKSq SZKtIhrkNFVdYWUcWKKvKDunBRKqGXY8NROqMLKhDRMaTI3IVeVuITErIxSeAwNbWZKrONJtlj7NCFZb AVUsUAP3ICUcQPIbUMBpZNmcLBPbAUZ6LPjmXOKiJJEcXM3JMlLuEXVzEwP8MrKkENZwWXOdnk9YNYGm RQZrPaXrRnCnKFVkVLEnXSdkMRCoCJQ6KEN3SYWyOZ TrVJ3YEtZkIMOcTwdiGXgkJIArCZSqcm1LRPSgQTH4WBJ4RoSjCEByCKGlDUyyZNCcBBA0JED4RKNtVI OnXQ0BZdBvPFNoUXNtPXlvIEKuIFBpwc5NBTPkMUU0PYh2OGAiGMQvHKFyQCplQJYgDLVgUQC7GAHhMD WeKA9RQpRkVERhSWP6KnhpPLUrSZGzrt3ADLIrTMA9 Tfj6QyXpWTYwLOVkQHlbCFAsKIXjOKC1YEBoEQFhAZ5QImPyNKXsXPVqVrFoZDPcOPRbtn8XcIYazXaz kd7OFFeWBu4IoXbvBEZwPFnoCu2dcTU1JgEuUNTVPc1JibJeKQJwXMUQWJcbOQGsUAtcGJDjZWFtRRBb ZML2SmUgTsB7QfSaQiztTRG0VFCwUvK6B7OlBAGsGV JzSkYhOuEjZZZkTHhlWnZyRYWgFCJ5MND+QZ7xBDq+Yi7Ze6WpzpC0ucPcUPh6JqXeDI7NHXBNF9JUVj == ID Date Data Source [id number] 08/03/2020 06:28:00 PM EDT [facility] Name Value Range Interpretation Code Description Data [employer] rce(s) Supporting Document(s) Nursing Note [facility] SAVXEb3zZtGENnDs71/WPYghWJNbk1XgUJnaULv1ABctQTRkR8HpQPN1gS0eOBF5YEmJGpHoWnVtWBM3 lbm [file] dGE+DQogICAgICAgICAgICAgICAgICAgICAgICAgICAgICAgICAgICAgICAgICAgICAgICAgICAgICAg ICAgICAgICAgICAgICAgICAgICAgICAgICAgICAgIC AgICAgICAgICAgICAgDQogICAgICAgICAgICAgICAgICAgICAgICAgICAgICAgICAgICAgICAgICAgIC AgICAgICAgICAgICAgICAgICAgICAgICAgICAgICAgICAgICAgICAgICAgICAgICAgICAgICAgDQogIC AgICAgICAgICAgICAgICAgICAgICAgICAgICAgICAg ICAgICAgICAgICAgICAgICAgICAgICAgICAgICAgICAgICAgICAgICAgICAgICAgICAgICAgICAgICAg ICAgICAgDQogICAgICAgICAgICAgICAgICAgICAgICAgICAgICAgICAgICAgICAgICAgICAgICAgICAg ICAgICAgICAgICAgICAgICAgICAgICAgICAgICAgIC AgICAgICAgICAgICAgICAgDQogICAgICAgICAgICAgICAgICAgICAgICAgICAgICAgICAgICAgICAgIC AgICAgICAgICAgICAgICAgICAgICAgICAgICAgICAgICAgICAgICAgICAgICAgICAgICAgICAgICAgDQ ogICAgICAgICAgICAgICAgICAgICAgICAgICAgICAg ICAgICAgICAgICAgICAgICAgICAgICAgICAgICAgICAgICAgICAgICAgICAgICAgICAgICAgICAgICAg ICAgICAgICAgDQogICAgICAgICAgICAgICAgICAgICAgICAgICAgICAgICAgICAgICAgICAgICAgICAg ICAgICAgICAgICAgICAgICAgICAgICAgICAgICAgIC AgICAgICAgICAgICAgICAgICAgDQogICAgICAgICAgICAgICAgICAgICAgICAgICAgICAgICAgICAgIC AgICAgICAgICAgICAgICAgICAgICAgICAgICAgICAgICAgICAgICAgICAgICAgICAgICAgICAgICAgIC AgDQogICAgICAgICAgICAgICAgICAgICAgICAgICAg ICAgICAgICAgICAgICAgICAgICAgICAgICAgICAgICAgICAgICAgICAgICAgICAgICAgICAgICAgICAg ICAgICAgICAgICAgDQogICAgICAgICAgICAgICAgICAgICAgICAgICAgICAgICAgICAgICAgICAgICAg ICAgICAgICAgICAgICAgICAgICAgICAgICAgICAgIC FgJKYhBFOvRINnWGDhUZTiTRHmSQBnZZl2R7ovOCLuYEIbVC3lNXd7Nz4+JRbLTlMuEWS5pkVznF4QUX 8ju5HoMCqpGSLtf8WxNQg8TG7FKQCiYGnpQH3KONashn0MOUBjLONjcAMKl5ynTeOnTCL6LKEhWllqUP 2KQYSjF5ekotXoUNJaJLDKPY9QIpKtN3ZqnY73WHUS Cj4+WRazluLgPvcGMkQkIJLiv4NaTFq1EH6GGDIyUeqfs3ZfAbFcZVVPNDmmQU3QUCE1CPZtUOTxJs2R ZOGzM222ggBoKB4GYm5CRsBgNO8ckd6SGjZhSQAdBnmNAtr4SYsbWV9YlPGeOKsJqOOkcD8uXV5paTLd SahfJTotcrGfLAolo2J3uGUvMXBXFrZvlENrMJ1fDM 0kKKDkFKJ8AyO9XHWUVO3NFMHjCHQlmQUyPQLhRKUSQZ0RTSfzCCJ4CnxoouKpsMMzTMbkPS8WKOVfvx QgMjIgMCBSDQo+Du2UTW9aa1QeWYjiMCTwYX1cef8OZDfHAzGwC4L3hBWtF5H9OTnjLe0HVZRtAAFcDq GpBVETZLwuFA7MJP8jsbH5VU3IzDCcHAXaMIYhuYTd RPa3Z73tbXWkQKeiWL5HRBT+Savannah+Hf9AKMToWBDfRPTtZqXpVGCVQgZuX0PhL5DXi3IjO8TaHK64rSrp riXpEKpeRO8NTX7sHYJlCGRCRT0UcTOzgG2kxcFpEpMbARLLDySzZ61osVPvKTLiUAZhGCXySr3UUBBm J7IdzyGylMoivlEiUYYoLFYZLA7FTRtzfvQhwKPcmU ehAT49kXwxOK7CSk2TVqEnMM5ign1LtUCaFi0TQSCuBC8JWSUlYDMsGULsOPB6DBUxJwImOJxaYVYvWC XbCTD1FWMpYWDzWS4WCxPkQFZcAEj3TPEqPSQpZJGyfb6TATTwBVLvTCTiMGKwUFIcVFOoZCqlONAhXS DlPTA5TVOiVKUuMU6ZVrRbDOZfJESeNPblLEXbUBCe bm0BMGIyQZAcQDHdUTBmSAQaRLLlSIipWPHkZKJcJYq9PUEfBIJlFG4FFeYhAWVtFVI4DTNoAVWtGJRo ms8FAUUrDIGwQwt4KRTkVVAoHKDjRSzbDPFpZUSqFQE7MVCkJGKtXC2CFfQpJFDfCJAxWaQqQJZpSPHm ps3NRLSqTYZoAVDfUxAxLOOzARCsYFfeXACrHJF4CE JmYYOyUUYdQO4UGpSoTUVqJUW5NbigQEIqQGLksi6SRBDiLWQzPpX8CoJnAJUqWCCuHXccMKLwMPD8Tq B4JHYfKOIiSD8OMgHuMKBjJWi0IbZiHYLaPQOaps8ETKAzIMUqAFOkWKYvNZJrXITlNRdcVZAiSIQ0FO gyDAFwGNXmXK1FUbMvFFBlSCs1BkLaBRAlMIYinr2V XEKeFQYjSGD0ROYiUWAnSBJgJWwnURFcONXwEhG0KSUnVCAdUH4RFeJcNVVqDnY1COdsOCHuKYTgov6B UZQdWMLzXTofDpUbPZPpJNCdCIz2hfElkXMxWBq0AA6FI4VvpvFyEkIZEr6Tx861WWX9VTDjTn4EM2ft Yc4sUVNzQQGZSk3UMKl9LSB1GDX9HdQcDTX3AJBuGX IyBzKjMvX9VOCfVZWeURc+ZEtaMfNkUTeoYFZ1Wbx3PnQ7DGDqKLItNxQtX7KxB7AzFP6eXXBPUj9+DQ nkeSSlvHozSGGEOlUmAJqnWBxsHLOHNl5P ID Date Data Source [id number] 08/03/2020 06:22:14 PM EDT [facility] Name Value Range Interpretation Code Description Data [employer] rce(s) Supporting Document(s) Care Plan [facility] ZDIBUw5jEcSFCsVc26/BFAseSBGfb4ReURsvATv6FYdbUQDaY0NrSON3qY0xMMS3XPlHEyAhBxNhXPU1 lbm [file] ID Date Data Source [id number] 08/03/2020 03:09:07 PM EDT [facility] Name Value Range Interpretation Code Description Data Sumaya rce(s) Supporting Document(s) Progress Notes [facility] KYIUSg3dEqRKHmUz23/VQPatSGInu9StTVvaGKi3ZNefGQLcJ3IjFVA9eF8fDRX1CAuZPbUmCaOsSFF0 lbm [file] ICAgICAgICAgICAgICAgICAgICAgICAgICAgICAgICAgICAgICAgICAgICAgICAgICAgICAgICAgICAg RTNrVPHzTXUuFCQuXUZcPCAcOSKpGYLgRN4ICSBtGROnIJXbTVIqBZQcAUCcJDCvDJFgWCNfATMyOBZl ICAgICAgICAgICAgICAgICAgICAgICAgICAgICAgIC HyNPOdQQZhHHTlJVChETYfZJRuXWQhYEGwVWObJBHfBKOzFG8NDERxMGOaSSJyTMXoEVNoAGGkEGTlJM AgICAgICAgICAgICAgICAgICAgICAgICAgICAgICAgICAgICAgICAgICAgICAgICAgICAgICAgICAgIC VrPUYgBGGtPUVkGMTrAOZvQU5LJOEmDAXrOYNsVTOz ICAgICAgICAgICAgICAgICAgICAgICAgICAgICAgICAgICAgICAgICAgICAgICAgICAgICAgICAgICAg KNQvHNZfMNVrAXXmYGVzWMSyNZDmHMObOGWxBO0QZKRqUFSaOEXzWMJoOUQkRHFiXHOlERAdCZOaAIPp ICAgICAgICAgICAgICAgICAgICAgICAgICAgICAgIC RyBTKbZATcAPCzOULvOZGbNIXlDTDtEASzHEQjGVTrOSQyLPIgYS3ZWCPkUSEqJAFlOYIuYXZxDLWuLT AgICAgICAgICAgICAgICAgICAgICAgICAgICAgICAgICAgICAgICAgICAgICAgICAgICAgICAgICAgIC BvQCItAGZyZZDbHMGoLTKnNLAkDZ8RAJWlAYRlNYSu ICAgICAgICAgICAgICAgICAgICAgICAgICAgICAgICAgICAgICAgICAgICAgICAgICAgICAgICAgICAg MOPlESQwADQrNQOcCVTjAJQkSHPoQWGgUDDwYHQeAW5QPQWpSMGqFVUkRXPcBOMkLUVcRDHaAOYxEPNn ICAgICAgICAgICAgICAgICAgICAgICAgICAgICAgIC WdUTAhHUDfZSEeFWRpNIIuWEOdBCDcRNFxWFYlTLUnYVIlBKIsXZAqHZ6CHCWtLHAsTLHfUUEaNHNuDM AgICAgICAgICAgICAgICAgICAgICAgICAgICAgICAgICAgICAgICAgICAgICAgICAgICAgICAgICAgIC SeSZJkJPLyMEQrSIFpNRIyXMFlZTFuYL4OMVHwYGPd ICAgICAgICAgICAgICAgICAgICAgICAgICAgICAgICAgICAgICAgICAgICAgICAgICAgICAgICAgICAg UTUkAUXqBCBzSAShMVMbHVZmRYYjDAOiZODcBCCbYBJnMI9NAK09dQHgq0W0EMFcPL1neto/Co6MITqi wgCwnBLtDL2CBgXxBN4vra1ASvZdEL4jmu7HNCfFCh BiY0N4vDYeNWYzSTPRCsBeH02rODngOk67VEkyTISuLzVxRCg0Uo1KHsLrU7qqJDHmFfZ4ERJzFmD6FK FoDeV7LOHhFxThITaeYH7Ia7UpgTNsGDv+Pv7LUH4fr7TxAYwsVTMeMA0ufe3AZQzXXiRaV2DurrK9VE PrRYSnHr4PULCxGCCeeAGsDGEkKCHYAbJhL9ZuiN88 IDENCj4+OFicaiIeBebJWyFtBZZyl7ZgXEw1ZE5EBJVtNIv0hQHnPBBrV4Xse1RmUs61MJBcCcsoBkXe i4KlbiHwO93ujPP4LDNQZUQmbXRpMR0lLQ7hBWHlKKBnTxQqNDPOUI9QMQXmTTLkcMPoATMnICWXZR0B HFejKNM2YkbdjoHwiLEfTPurMO9ZSSDbqwSbUddcPN BSDQo+Pj7JQA3by6BkUGsmPNWwAI1fdo7PEBnIXmOmQ3U7hXCyA3T4MOmkOm8RJQVcABXcNyumELIDJE fxOM6FKZ0stxN8JE6KxVVtGWFdYYNztICwJDb2H29ktSCoZAejOC7NORX+Savannah+On3MUBZpSAVfOOZrVf UxEQHIRsFqE6UuJ9JOo3GhH4OxUT81eBhtjbKlBUpm PB4ZHG4wFOYoBQRBFT9GwEUkqJ5lpkZhBOAeAQLHUrVwR30yeLLwFQWsGWZ6DVTlZi1HOPNaQ8QekuVo dRbsbiPgPHYlDLBYUM1HFIpzrrNntOSacZlkOQ35yJstPG0MZk6AGoTzNE2qyp3HoTFzBx4TKSTxFn2D FPXySNFhADKlKFJ4QAByWqNvRJauANAgOTQyOMM6JA RnFAXtEQ0CBwRyHJKqEWkuGLFmXELdKYTgqb5CXDByGHQzJKC2CTAwRIBfSICkLWgaLRYtBDYxFUF2XN KdFPYcBF8BGoKxYIZjJOJqJDJpMILgHLCjyk0IAFXzNKSfZiLeCCToMFCaKFAnKMitTOGrTYE7BJhwCQ OdVRQwFL3IUeYzHJAzEWGmKVJnBHLgDRCfda1OSESy RFOeAxoxQsPvHCApIHIgRQqmBKAsXRR0EAHaSQTjBWOfFQ5UDbUtVMWtGUswZadwVXDxLXDuey8IUXNy NTIuDQE7KXRaJUFmKXDjMVrwMAAuAFM6PXM1UIQnSQPkZG3GOlWrYIYrHJH7YXndFGLzAUPonu4JSJKn GQEdLBHrOyMrIXEpQENbGBngTLNyVWOmHdz6AMJfQR CqZZ6YVjVlJQQmAFG1DKtkPPFdPSPnwq2ZTINdXHGdRMl1KTRnIEFbYJPlMGscMIFnDIBsEUR9VLSlMY AbLD3XDnHiXNUhWXUrVOPbNBBtPORemu8SKREeSFNePpIlGNQqXLAyHSMjZWsqBTYfVDWnESf5NTDnLC XyMM1LZgMrGSJnPKdvHOFiXMRhVGAqsk3SPWUdLWCh CON8InBeUISiJOXvVZvkNGPzXWM1CEt1ZTLeXRXiYP0FTzGrDJOkKSstIvJaGOOkENWfuy0CSAWlRAFj YGR3VoJxMNNzOQVzXVaqEEFcKRO7ZtZ7EJMcUJQsOD2BCeDgAYIxNmGdEBUqLUQzPWTisa0WSSAfQNRo PKLuUkPkWUThIPAoLZvhHASdDSNfYhc3CLNtQDVoCH 4AXjLqLPkiEKMDJtz5DJlqW2d0EKAoQz7IH2Ajb9PvWbRqYAZOSRmxJH5zysDnRSQjTo8XF7zZCeh4FB Y4I7T4AgycQQrhIiX8ScX6D2TrTSMvBVEvVCG6Rh9bVTRwMigtRbv1ITH3BPIcBarrGdF9WvM3BzYsJk B6MLWyOfMfTL5YQa9AKrB4XJM5qZJdAg0PHfA0TtZZYwRzJF9KEUt= ID Date Data Source [id number] 08/03/2020 01:30:40 PM EDT [facility] Name Value Range Interpretation Code Description Data Sumaya rce(s) Supporting Document(s) Progress Notes [facility] IBRKNt8nWnZTAwCm70/XMZkpULBsb9XjHAamUPs9JLwkYMAyD5UwDZY8lB1uGOG4HOoZCeMxHgKnWKZ9 lbm [file] AJG3TM9wDYCAXr9+YMjyvRTyxVqdTEDTEiY4YpL1PDxnQFAKWr8P ID Date Data Source [id number] 08/03/2020 12:40:37 PM EDT [facility] Patient: NI DIAZ : 9 PACS System: [place] [facility] by [employer] [facility] UPPER GI WITH DOUBLE CONTRAST WITH SMALL BOWEL FOLLOW THROUGH Provider: NEMO WAKEFIELDINEHISTORY: Dysphagia., Heartburn, previous gastric bypass surgery with revisionTECHNIQUE: Single contrast barium swallow with upper GI and small bowelfollow-through.COMPARISON: CT from 2019.FINDINGS: The esophageal contours are normal. There is no mass, stricturing, oroutpouching. The gastroesophageal junction is normal. There is no hiatalhernia. No significant gastroesophageal reflux is noted. The gastric bypasssurgery has been reversed. There is a normal curvature of the stomach. Theantrum and duodenal bulb appear normal. There is normal appearance of theduodenal C-loop, ligament of Treitz, and proximal jejunum. The ileum isnondistended. Spot imaging of the terminal ileum was performed. There is noevidence of inflammatory bowel disease.IMPRESSION: No esophageal, gastric, or small bowel abnormality is identified.Electronically Signed by Oscar Coffman 08/03/2020 12:40 PM Name Value Range Interpretation Code Description Data Sumaya rce(s) Supporting Document(s) ID Date Data Source [id number] 08/03/2020 12:19:44 PM EDT [facility] Name Value Range Interpretation Code Description Data Sumaya rce(s) Supporting Document(s) Progress Notes [facility] NKFQKh7uGhKNSsCm22/CAGkzTOChj1ZyIGrkCYx1CIprYZMaU7LkEQL9zM5oOVK2XJaNAdEfYjPuULU8 lbm [file] AgICAgICAgICAgICAgICAgICAgICAgICAgICAgICAgICAgICAgICAgICAgICAgICAgICAgICAgICAgIC AgICAgICANCiAgICAgICAgICAgICAgICAgICAgICAg ICAgICAgICAgICAgICAgICAgICAgICAgICAgICAgICAgICAgICAgICAgICAgICAgICAgICAgICAgICAg ICAgICAgICAgICAgICAgICANCiAgICAgICAgICAgICAgICAgICAgICAgICAgICAgICAgICAgICAgICAg ICAgICAgICAgICAgICAgICAgICAgICAgICAgICAgIC AgICAgICAgICAgICAgICAgICAgICAgICAgICANCiAgICAgICAgICAgICAgICAgICAgICAgICAgICAgIC AgICAgICAgICAgICAgICAgICAgICAgICAgICAgICAgICAgICAgICAgICAgICAgICAgICAgICAgICAgIC AgICAgICAgICANCiAgICAgICAgICAgICAgICAgICAg ICAgICAgICAgICAgICAgICAgICAgICAgICAgICAgICAgICAgICAgICAgICAgICAgICAgICAgICAgICAg ICAgICAgICAgICAgICAgICAgICANCiAgICAgICAgICAgICAgICAgICAgICAgICAgICAgICAgICAgICAg ICAgICAgICAgICAgICAgICAgICAgICAgICAgICAgIC AgICAgICAgICAgICAgICAgICAgICAgICAgICAgICANCiAgICAgICAgICAgICAgICAgICAgICAgICAgIC AgICAgICAgICAgICAgICAgICAgICAgICAgICAgICAgICAgICAgICAgICAgICAgICAgICAgICAgICAgIC AgICAgICAgICAgICANCiAgICAgICAgICAgICAgICAg ICAgICAgICAgICAgICAgICAgICAgICAgICAgICAgICAgICAgICAgICAgICAgICAgICAgICAgICAgICAg ICAgICAgICAgICAgICAgICAgICAgICANCiAgICAgICAgICAgICAgICAgICAgICAgICAgICAgICAgICAg ICAgICAgICAgICAgICAgICAgICAgICAgICAgICAgIC AgICAgICAgICAgICAgICAgICAgICAgICAgICAgICAgICANCiAgICAgICAgICAgICAgICAgICAgICAgIC AgICAgICAgICAgICAgICAgICAgICAgICAgICAgICAgICAgICAgICAgICAgICAgICAgICAgICAgICAgIC AgICAgICAgICAgICAgICANCjw/wIOmA1ziwCWskgQ3 O7lcKb3EBk2JXU1ae3OxNIZlNLtdysDxAhzYXnTaUKPeOyhPMcr5RDrrZY9OzYLtQ0QiK6FdPBpaLX2R HIRwDDLotFXsACApPRSoXwV3BTKqIDedXZ3WnVTvLOmgXHEfCAArIO0MNRBqR870pjEoMM0RRb2BIoBg RL3hyu0YScAfGRLmIoeGJis9BEymIJ9KcEEwnYPaRb BkEDJSUkRtH2axx4OqDyPtZFEXIJwuDW3Sn4OwfRZcSCw+Oz5QOX0pr8VgPSjaMfPjBT9wpf2HVXkPOa XgJ1LynVzkSMRye7mmWJVsJU1taJHhNNZ6CB0syqjoMzOvx7MjGGUgWDQhJXJwVdUuOUPdJxthISKSGX bVZvHkE5Eso1QcHpP2RCLjFvHwOPprQRBzNcC8HK66 gOadPS4UZQXqTQCsCX96OEF5YBArBl3JBp7XBeAwAV0fbv2CMvqfWLUaZqlYAum1ESxwLL6DxSFwX5Zu hLKkf3jGScDwC4HBDZLvKUCeUc9YFGJpXmYlMCFzWBxoRR1sLMZwAPERfMzbhtD3RA1QIS1dwoVuNA2X ZwQjYw1yIw1LFjOkG8GsU7EoXJJeHONYHYeeGM5JOR skIF4cEZ2Nk6WJdVNymN6xps0OGPOsLSFtMoqbfn2FQjyrX3F1wEtyLZVyUuWvQKDCMWliQR3WGMFkBN R7JERjRFQfZKGQSgSvZ53vER0MU6Gwz03mCkO4OSGhYbLiVUioLQ47jCejrtVamIKasPcbLJ5PRf7+DQ plbmRvYmoNCnhyZWYNCjAgMjgNCjAwMDAwMDAwMDAg CaV7EdMcCo6ARXJlKUMsKQIpBnWoGIBcXQBtJMymHEXgYHJlQSCtNCRoGLQpEV0UEuFyHRNcShY1SFOu DINwXBZfch6RYBHtZKPtJWM8FhYbLKDlCDMwVTrcZSEyQJOkRwMzALQvTVNrWU9VDkFqCBItGRK0Uhor PFNaWKIimv3UQLZiIEFrNxS6NFIbGPAePUPsYEnfKF ZsVAMeKWi8TSJoYLZlIZ5VGcRbSSFmNNO4IdMcMCQfSEIqky3BYFIxXXJdSXzkMRPhHYUbJLBbRWktHR XcCSQ9BZH2SIPhQIPzZS1QMoNbIINfKQGfSSrpYXRwXSTbpv8KRIFkHOGnTrN1KGDqUMCpOATlRGiqZF SpELU4Fht6WUQlUSCrQG6YXwUvGKHhIWb2FWSqVIQv RFOsem3UCKDoUATgPXWpPjUyAJEwJOTvFNimKWYyJXC9LvM3YLAaUDGhXR7WJtTjORAuBVgxMUEbMSOw CHNuvn7FJWMyIAImLOVpTcFmPUYrJWStNTzqZBDkGHG3RjdbFDQdGFVjDK6CZfBkXDQrWcV8LzGlOLSq KUFwbn6VAZIoBNByERcsUGUuSTHvKGOfVUfbEOScPN HiVVddDENgVYDmFT9MSmLcOXJbBlT8WSTaBZOgZDZycs5QUMFjLPMzYuf6VIPjNCBlUNAmULqdBJCpBA MqIZKjRGDrRAMgEG6XJfFiLUEiKmPxRvWoMSKvNCLiiu6PeXBqfZaskk6KCXrQWf1QhBmnNSW3KTngXv 5nyCGzXjOaOUJPVy5PspAuDPYnVRGPANtiZKNyQOg8 A8SjTkRjHhF8JJD5BYZ2P9GeOjzkJnC1KYTjRXWbPgF1HYtlUZBqSKQ2UTbsShw0FDonIeTqUIN1AcFn ZDNlYjM+YY0eXIl+Jk9Iu8DailR7btMtQWxfBeCbWG8YYLLHX7TSIv== ID Date Data Source [id number] 08/03/2020 05:45:35 AM EDT [facility] Name Value Range Interpretation Code Description Data Sumaya rce(s) Supporting Document(s) Nursing Note [facility] MOLDXk3oXgTQErOt27/PBGgcTPSto8UrKXeoJYp9DDceCFCrL2QpUBL1bV3aLED2LGyXZkIxMkRkHET2 lbm [file] i7ZRL4CIhvIWJEVs7M ID Date Data Source [id number] 08/03/2020 01:57:24 AM EDT [facility] Name Value Range Interpretation Code Description Data Sumaya rce(s) Supporting Document(s) Care Plan [facility] XFZQKf1wMaLUTrHz64/COQtgJTQzk1OjZAugYIk7PLaqVYQnN0YnEQL0uS7jTQX2QJlIDvQoXfTeUXC5 lbm [file] IDggMCBSDQogICAgICAvRjEgMTEgMCBSDQogICAgIC HiGwPjDQTwBLLUERovFPVtLAHhXzEgPSfdNEZTOf1SOpWaZKErTA7zauVncNE7GQN+Kp1EOIEfOY0PkB WMT6BvjUHoCYhxL8AYPK3JLLZ0KW8GbINnMM9NkALOX2PeiMPuOf8sBKCyd4CuGc7gD0PXCFBIEMKbUD tqXSaiPQNaBEg8G5W7NLXbX8KOT897gBIrmCx3Os7c Y8PDJQiQZtEdVUplJLyqUEUjKNr1J0O6CYTlF5UXX9RqQwVaffNaX0N+CpYwBZUVBZ4ECGHNCIv5U7B2 tRMbX9I0vNwIhLD0FS7VNH2KhIEbmEKju78+LdLQZlRqTAMlA4TNWLDQVcWdVMphLHmvXKRtCIz1F7U6 ZQUnD4WSK5osN6q4DT2+YfEITxApFMOaAu8ZPfPbNy 7KSrPxGR6ihs9EIIioVYBoSnaYHkn6Z9tvtmj2iPNyQdT2I4F5YwW0bRTvUV0BP8D1oRWuMWH2CLYxkD E+Dh4Sg6UwPPVxIYn1Y6rzDUIlAPAxXfHduS51T++2octaeGY1A2s0OYQTeMGweBdNffJrS0mYIBT8f5 M5ZCc/Gj9PLLM7nLo7yALfXQHeBPr3cZ4azHw2XtEz PX40ONSyJTotiK4mShs0G0Xgi0EvNr1fYc0frCQjHh5YHoFzGBK7ptGpLiLHLdZ5kTedhonjHCF1V0q8 vAF7Rs16b0wnlsZfh2LzRiI1WBuoDEQzLlSrfgAcPIA8mqKctM0hkwJhWw1PJRDqALqlanSiEmHCGm3A AbTdXI36RqovzF5jzRR+DQogICAgICAgICAgICAgIC AgICAgICAgICAgICAgICAgICAgICAgICAgICAgICAgICAgICAgICAgICAgICAgICAgICAgICAgICAgIC AgICAgICAgICAgICAgICAgICAgICAgICAgDQogICAgICAgICAgICAgICAgICAgICAgICAgICAgICAgIC AgICAgICAgICAgICAgICAgICAgICAgICAgICAgICAg ICAgICAgICAgICAgICAgICAgICAgICAgICAgICAgICAgICAgDQogICAgICAgICAgICAgICAgICAgICAg ICAgICAgICAgICAgICAgICAgICAgICAgICAgICAgICAgICAgICAgICAgICAgICAgICAgICAgICAgICAg ICAgICAgICAgICAgICAgICAgDQogICAgICAgICAgIC AgICAgICAgICAgICAgICAgICAgICAgICAgICAgICAgICAgICAgICAgICAgICAgICAgICAgICAgICAgIC AgICAgICAgICAgICAgICAgICAgICAgICAgICAgDQogICAgICAgICAgICAgICAgICAgICAgICAgICAgIC AgICAgICAgICAgICAgICAgICAgICAgICAgICAgICAg ICAgICAgICAgICAgICAgICAgICAgICAgICAgICAgICAgICAgICAgDQogICAgICAgICAgICAgICAgICAg ICAgICAgICAgICAgICAgICAgICAgICAgICAgICAgICAgICAgICAgICAgICAgICAgICAgICAgICAgICAg ICAgICAgICAgICAgICAgICAgICAgDQogICAgICAgIC AgICAgICAgICAgICAgICAgICAgICAgICAgICAgICAgICAgICAgICAgICAgICAgICAgICAgICAgICAgIC AgICAgICAgICAgICAgICAgICAgICAgICAgICAgICAgDQogICAgICAgICAgICAgICAgICAgICAgICAgIC AgICAgICAgICAgICAgICAgICAgICAgICAgICAgICAg ICAgICAgICAgICAgICAgICAgICAgICAgICAgICAgICAgICAgICAgICAgDQogICAgICAgICAgICAgICAg ICAgICAgICAgICAgICAgICAgICAgICAgICAgICAgICAgICAgICAgICAgICAgICAgICAgICAgICAgICAg ICAgICAgICAgICAgICAgICAgICAgICAgDQogICAgIC AgICAgICAgICAgICAgICAgICAgICAgICAgICAgICAgICAgICAgICAgICAgICAgICAgICAgICAgICAgIC TfPFBrHETsVRDnNMVzAKSqLXCtGYGdLWYnWNFcXPCwQRVsDXa6A8ckLNTxGCRnPM1qALv2Wz7+DQoNCm FmQZF4qaAziK6CPM3ra5AlYWvqLNYzx3ByXZx2CF1N YLPiXUojNN6MBDunpo2PTHMkZYLqtYRDo0zwRhFaWAS6BJUbTblrCY8WMXTqO3xrjyPkODXzCUDNMP9H ZlZgX9CkaM03YAUROv1+KNzhqoLiLfdMSnGnHXUai8CdNKl6VL7TKWCwUndou4ZzSfHmIUYBBHiqFF6A QRL1QCUmWCRxKh8JXTMqE599paZjRQ2ROh4PEqAkIF 9bva8PDhRtKOPgEryJOxb8JVgcIP1SnGQzKTmGYJEtWVZrEV5gLnqfWEdkeSSJtPDuE1RhHJKDNcKtqM DqNE7eVH8fOYIoNQRfOmZ6JKRSAP2NODWbPAXdjIJeHKRqKBVLWN8YWNmgTLU1GwomrnEdvNZpBVheMD 9QYXJlbnQgMjAgMCBSDQo+Ff4YPQ5tc3PrDNyjPzRk JZ2chf3UIUjPXhUjS2L0aRBeM3Q3DUukMe7PXEJbPMLhDEvcLHZKRMjkUK6FYF0rseX1QM1NnJIzLJOo OJAhhDOzKVm0U51aaGXoOBynLO3ITJT+Savannah+Un9DHNDcDQTbYLCiPqVvLRPTSlWrP9PrH6VUe1BxQ8Lq XM21qRtzdoStMEotCE3DKX3vQNFpHNSOBZ0HxUXmgQ 2lokUdFNXlDIYWVkQnK04nzUUhCZOnENN1NBVuKo7SXHAwL2EopyLpuOolkwOsLEHuDPMLHY8ZULgion NgzOAytQvsAU45vHzuRG0ERg7EViWeED6sjt7AsNUcIy1ZCBKkMd5SEJYtAATtZHJmLPV1NHAaZbMeBN pyTACsFVUiBWB0QGSeLFVzUB0CFcAtLPUhJYg2JoKp DWXiCXPcgk7UJSSzNHJuOCM3YEHaFKYtGLSbOOupPRSxIKGhXYC1BIRtPUXjJK1DNdSyIKGnBOXpSDDo MPIzFZTrdn0HVMIzFZCpIyKjWWGtPPRuTRRwYAlwGIOkRHCfNZDcIPQtWKWpME9XKmHzUSKaAYVgYxNn CSXpBQZxht2OVXLzHLOcJwB4SPFeMXHvJJWmPUkdSE QaHYM7NFL2CJNyLYSbGJ2LOvZhKAGtBFO0DNOsIBSeFWGnzq3UIJSkEDNcYRd4PwAvSYMcGTNwMXdhPA XoXWZ2LXI0LPZaCVTyZH1RKwCiODAiIGSsSXeoYDGiEXWebi4BXMZcYOFvArK3JdRbVKNkTDUcGFxsPE RgMRZ0GpK5PDVfXECqKG7BBkCoTTQyOOv6TYNpTTTt TUQruv2KMTBpDPIuAmQxGNUuHUCmFMDcFKmgHOYvHBA8BLFcERPcQKDbZI2HWxEoWNBtLLf6CdnwNWMw AWCelb2GNKIkKZEzWNT1RFFiFYPlRULzXWqzLWWlQKY3KhufHBNiKGWkQF2YYkQwYVskQYXIAnk6XLtr W2n0OIFkWm5KF6Ifm2MeQeSyKJJUAZdvUR4wsgVwWO AcCg8UI7jFBmgbHADcNUjzWnIrESZvFYY8NSRgWiM4OcJ2Bdf0TmHsBG7qWRK4QNNhASMhTuKdKJG6HZ duVUL7BjHkFjA0GyIfFpMmMuRwDC8YEv3GLuC8JCW1nHSbNa5YSLtsFa0OCQTKQ8QPUi== ID Date Data Source [id number] 08/02/2020 04:40:37 PM EDT [facility] Name Value Range Interpretation Code Description Data Sumaya rce(s) Supporting Document(s) Progress Notes [facility] WJKMMr3qAqUPGaGz94/GPLcqBRDsu1YkUEmqWKs2EVwjBLHzQ3NeLOP1zX5hLJC5LIjJWiHvQqZrIEFs lbm [file] AgICAgICAgICAgICAgICAgICAgICAgICAgICAgICAg NBDkSZWbRLWxFOAkAHAuZXCvRUVuYT5QEFVaPJLhIBSjYLEoMJHmRQZrZGHbSSJmXVKfTPBtPTUuTBYr ICAgICAgICAgICAgICAgICAgICAgICAgICAgICAgICAgICAgICAgICAgICAgICAgICAgICAgICAgICAg CCRxDW8JMOEqIFDyWTSwIMLgNMZfVMFrTDSzQGFnZD AgICAgICAgICAgICAgICAgICAgICAgICAgICAgICAgICAgICAgICAgICAgICAgICAgICAgICAgICAgIC FsQJEoCBUgYXCdOZQzVQ2PXEYdCIYyUXXrBJFwRMLsEQObJAYjHSLqBJShHAErQXPcFAGvYWCuDRXyYR AgICAgICAgICAgICAgICAgICAgICAgICAgICAgICAg LOXvXTNjRAKxVYVtZOLsXOXcGYSlZJOyYE6FYCArNWMnLCOxKYChZAOcBBYhUVPsBCNaWAGjOUMeDSZg ICAgICAgICAgICAgICAgICAgICAgICAgICAgICAgICAgICAgICAgICAgICAgICAgICAgICAgICAgICAg CZPaGVFwNF1THTPcWFLkBMDpWBFjRRFdPYPlWXHhJW AgICAgICAgICAgICAgICAgICAgICAgICAgICAgICAgICAgICAgICAgICAgICAgICAgICAgICAgICAgIC RlECLlHNCuTRZfITHxRKYrNA4LKWVaBWSkYAYyUPWdBMXvLDYiKCNrFXThCEEzJZZnAHGyODPzMHSpAQ AgICAgICAgICAgICAgICAgICAgICAgICAgICAgICAg PYSpZFHbQQXtVQXyRPCfFHGcMJMiRKDvMSHeMJ6LAYTgBDLjLONhYKIwFEPpUJXuKQCcZLSxKYLlOHEr ICAgICAgICAgICAgICAgICAgICAgICAgICAgICAgICAgICAgICAgICAgICAgICAgICAgICAgICAgICAg VFQfCZNcGMEkVR4ADDJiCNAxMBJsOMUdVQOmLIZyUZ AgICAgICAgICAgICAgICAgICAgICAgICAgICAgICAgICAgICAgICAgICAgICAgICAgICAgICAgICAgIC CbFVFfKEHdOQUaPKDiFFMjTZBrLT5WUFPcGAKbCLEdSNSgPEThWARhZUXtXSDeTADcCKCmDRUqTPLpPY AgICAgICAgICAgICAgICAgICAgICAgICAgICAgICAg QTUkMRUmWWXrHUJkKINiFIVxWRSfTGFuRZSmFMXmAD2LCT71lURwq2A7UBVhFV9mfsj/Py2WNPvzynLt dZPlHR8YWfAuGR4xuy5XHuZlMW6kwz5CFVtDYjAfJ2O5xZYmTVZdSAAHChUzX41qECfyUb54ROgaWWHa VbDsQYl5Bt8PQzKiJ4cgHYToUsK0JOWwOlP7IDVpMc XcNPkoFA3Hv2IwmLBoKGx+Cq7VBP8ro5IzWIcgJDHiCV3tap3EQIoBNjFsP4PcyuB8USE1OFCyLf3ECO FkPPMrvWIuYfGsBXKKGjLfG3LedO44SRKSMj8+QIkjysJaLihJFjY8YRXqg8CpMJj1SP6KCHAfRGp9sB KaVTKcK2Iid6FnMd50AALiHfpqU3bbamSpEUz3rd6s QU96R2hrMQBBZMUbdFOcEN1zEx9oTFAuIWRdAeEuVRIVAT8HPLVmAJAksLIhWHCaPLHCZC6MZLsySKW4 YdsmfpAprRAxUQvuJN2UEOAvjfBsKhThYYOTMCv+Dc5KZR2vx3AfNQqwOfBiOM9kkk1WGMsZIcRzE3P4 yNJcO3F4ORiyHq7VSKRgPMOvBcJrNPWYWOtbUH5ULR 5nooO1HK8KzTScILMfUQWhrHFpSXi4L15blYWoRGwjFQ4KHSZ+Savannah+At3NNMQoRYNuEGWzMzYoWRFHJs BeS3SdW9QWc4WeQ6OxIX33pQfhfzCvTPvjDP3ADC2rVYLuUQOESU4SpXNmsS7prsXyJAZyPAKDZoQtK1 1quNGlYULjHWM3MBJdZa0DWKSyX4UljhYfkOjjdbIi NNFjRXYYYC4WIQpqawOszSBttEulVL25sNkoZT2OEa9CQeDsYZ5adx5MaUCuCm5UNQEpFY2BOBSgBJNg EOPvINE1FOLpSlVjZPuyZHRwAGYtDIM6AEZgDTCzKJ1AAeXsAZYlWKF8NWTuLREvRGYnlk2VKFWbFSKm CCUhXOJyKRKdVFRxBVzsMYHvPIPpGVW5MQAaYENtYT 2YOzJrJBUiJLKpAVhaWXMgZOBokp3SHLWnBYMwJaM0NXVgPTXcAAZbFBrhYKZrRGK8MVtsRCRlCRDmDC 5CDwMeBOCnSLI8WVvuONNvNYJjcb4MYFAiTBRaJcM8DOZkOPWtTEAlNYyiNHQtYAT2PFR0KWYnXDKkXI 3MXrKiNXYjKXqwERJqEAIuCYMfbk9JKVZtZKKdBOCz IaRlNCSeZFGhLAueGIBmWVA9OOl1TLEoTUKmFC0KQeDlNBHpJIqtDEYsTEQrUWEulg1PLRNxSMFtTYQ5 NKCwNDJfMNQlHSvmZCDaHIYvAJRlWMRfBOOhVN6TNjFhEXIcPMC0JcPnQDKqVATfvk0CRWNdNFEjHUG3 GAReNMQfYWXxGVeoYWMyRGTaAVhtEPYbOBWhAS9IOq KwELVeUMQxWWVlFWXoFGGzyz2VKGWyHQMdDnF1QJWuSAFhBWLyWMxkXIHtSNEmCzTlZILdEEVdNT8XIl XkSZTqKVU5ZsIyDDCcUNXcwf3VYCWdEDWbHbg3DOTgUMNrQEReFPxlEYEqATX9KfT1DVAcTRZvBY2FXd DcBOLoHBD0ILIpCVHyBKQhfp1CTKBbFJUyDIB5MAKo LCTmSOMmWKf1byAbxUOxAFn1HT9ZZ0OetpThMuvOGx0Dy254WMJ6FDTmAw8HL9cfLz4mJNTsQWPOFn1I FYb1DNC1StT5QGLqAkA5ZDltYPPjQMWhMqdwOLX6OAV9GsI+SEd7GjYvKZl2W9TgDQh8CTTbBwO5YxR5 DVK5TPVoHsJyJQ7xORSOJl4+YXtqtMEekCsuKLOCAiR9Dst9LGzaDWBMJo6T ID Date Data Source [id number] 08/02/2020 04:32:30 PM EDT [facility] Name Value Range Interpretation Code Description Data Sumaya rce(s) Supporting Document(s) Care Plan [facility] VFSWTw2zAbXEEvYo82/QEXdmHNEym7WeHEdeNLq4VUhhOQRxU8EiNDZ0sC8dTOS7DLkACgXrLmPrQEXq lbm [file] 4Z3ltn7N+g2TpnQn9JWy79UETVWdMg77bp18L9+personnel psychologist [file] AwMzIwMiAwMDAwMCBuDQowMDAwMDAzNDAzIDAwMDAw FY6RAgXkPQLuEIK0FKzxZROzHOHbgp9DCZTfOAXcEWB0DxVlYAZsOCIeYSigTCPuZBT8QaL6UXVzFXUj OW0YKiFmADWdTDD4PfAnDFPvXBAnwc2KRWFgVBVhPdI9BXQbHHKuJAVqGOubGZKzJTU3YZciTEMnFTAg EA2VQfEbSPObDAb6KGJqSWPuRCMchq4WRZHqGJMuZF Q1LXSgAQMcTHWiNNvgKYZpVSV1GHl7ANJqZBWsYF1QQhAhWMVbCMxtRlsvEMFbVETobr8NXTOzVNNnJJ YdCqMaZNUkUBJpIDiqHCBkSOK5QZDrQTPsVYTvPS3KThSgZDRuJdD9ZZXpEKTlOSQklk8GBQQkHLOgSK SwRRZhSWKmIJZyIWyhRXXhGYPpPTSvPBGjFSGuAH0V PmXoIFWtZvWeAETmHTKkCPChio0EVYAvNNKoHsZ4GqGrTYTiPLCjMOwhEYPuFDVnMtYyARVvWNJdQD9F PnQrQLMgZpA7LHgkXBBhJLBbml6MnGNjvXilvl9YIUyAFn3QvLqmAFB6QUxcLp6fpZHkTiFbJQCDIk5D wdMiHRVmVOSBLJaoRUKfNBKaRXF4MTchBcjpPsWjIu W4JgerVUR8WMG5IgX7FMNfUyL0LzQ2UnVrN9YvYGRyOyGpHJF6TGG5WCOdERM7AZE6AkX+KG0uUEc+Pg 6Ny5WjpzW9dfCyOYnqFxJ4Sm0BOPGZI8XOVw== ID Date Data Source [id number] 08/02/2020 04:30:14 PM EDT [facility] Name Value Range Interpretation Code Description Data Sumaya rce(s) Supporting Document(s) Nursing Note [facility] CCMNAq9dGlZXJdNw61/YZAeuXGVsy8MsTBypGLa4FWyqFPBkP0OlLHG4cE3gBBP0JJxUThZsSrBkRITb lbm [file] MpXlSSh8MgBjQQLqCzG+VH3kCXh+Sa5Uu3DzhoM1wxUnITclPJS2Qi7KZLKFT4QFFr== ID Date Data Source [id number] 08/02/2020 03:43:26 PM EDT [facility] Name Value Range Interpretation Code Description Data Sumaya rce(s) Supporting Document(s) Consults [facility] HMSKDj6qVfIQVjTb55/QUOsuYOMdi8PnPIawBWk2RWpkIGUcO3VdXCF3fZ5jCLJ7TNyYAxYpRlIyBMHd lbm [file] VPRg0K ID Date Data Source [id number] 08/02/2020 01:41:23 PM EDT [facility] Name Value Range Interpretation Code Description Data Sumaya rce(s) Supporting Document(s) Progress Notes [facility] NVMNDy2iLnBUTyHx78/YRSdaWPXho9IjGQgdDAv2TLrhEQJhU7GpKFP1yE4fIIH5QPsKWyFiAdZnRYVm lbm [file] ChQT7ARIu= ID Date Data Source [id number] 08/02/2020 01:29:48 PM EDT [facility] Name Value Range Interpretation Code Description Data Sumaya rce(s) Supporting Document(s) Consults [facility] UEMLLx5jLiYGKtEz64/AVVwyJRAgn2EvMCywITr4KKrsNJNoT0HnYPL1wT6xOGP3XOjSKsBiRmSqVMLu lbm [file] FNJq3uJLCjtg8y/mz3alRTOTkcrWwfJFP+wP4+I8LG+RCy8qMcYZb+co5VlJviTyXCe0+AOlTqezO/Steam Frame Operator [file] +0OR18fyHTXuh923nsZ3ivSmpn3QbUVsYc2qAW21Nm7XXsS+RECIO/lpM01sukom0dw0gQ8pZKkUT2Frc6L 4R+VIzRd+ZRu8o14mpXCaBsKMmiiiyHawd76dZ3G05Y6ql5lXANI1mgg/7dh0gDfV/jWdvki9EYuaY9w yR4GsYbB+tUJZVArQUJR4pRPiSwHrx50ZXyB7M820C 4mA3dpT/uxUWHzDYZpFQWSSP61V163R+I8PizMIZbHMHeAibUmByni5J/cH+eF6K0nTafpETO37MyTaW 4oJXIvLk8jxBI5EhsCeOiwCzNfeINz1D12wDjF32FB47jYYAEKLPOt6L+4sd2S4dmyzncf8tC3IgcVSW A7amVDz9yds0/owLG6pMUnNw8LbCQ/ftAKKUPVuPa9 +G4HXi8vqUd1UxLzvY73L1bNQRO+uH0FQNayMfcGo6E/ER7W5wkt+1SfaSmgqD9AfAOIEYZxFc5jN7SP P0M+eyKlKZOnvTm41LN1ygq5+JC69+V5aS96UU80axij2A/5vTc/g3ObF/zfCpn/wW9WS3U+yAydX9l8 Tfk+IjEhnlkWvP5JtXT20akNJlOqifW9Iw4fcQEOUS QaDyefRN/wfHnem/HQC9SeiZTdUw+A5wTWcIIN4NpIuwlke8/5fXPlyrjMeqe0S4KsAAnKgAcORmCTV/ B2aYtb31ZH+L2WnCvJmzxxDmpDbOB36FmhdEohEVTGC9zKMkYysi/TzXt+MhqEyznSjEQJ3mF/BM5E49 slFKuuZdRgL9lkt29/VAfLCcRK0pTJtzwP8XjCnXgA WeUPexSpjNTVoAUnn45WlLhv4suvs3qvq8wNfgxpA19uvMbhf2O+20ReyLIXPuA+3Slt43F5R8N6YKl/ I6W3dOrwwsWMUI8/UG6Y5ame2h8NUIlbkw5AtBa7BfKc2LAmDz+RENqEGUCaS6JwkU/IecT6Uo6/h/sC hvP0z2ggHsdP9cMsDj5I4e6X0hV6j+H20lz1En+9qK hALmehVvTNeJTBhzEUqJj8yUHe+npCnm+l5MruroqkyK7N1dFxltJBb0gUw7tjb9OHaQb58J4DJH+supervisor opening and picking [file] ICAgICAgICAgICAgICAgICAgICAgICAgICAgICAgICAgICAgICAgICAgICAgICAgICAgICAgICAgICAg ICAgICAgICAgICAgICAgICAgICAgICAgICAgICANCiAgICAgICAgICAgICAgICAgICAgICAgICAgICAg ICAgICAgICAgICAgICAgICAgICAgICAgICAgICAgIC AgICAgICAgICAgICAgICAgICAgICAgICAgICAgICAgICAgICAgICANCiAgICAgICAgICAgICAgICAgIC AgICAgICAgICAgICAgICAgICAgICAgICAgICAgICAgICAgICAgICAgICAgICAgICAgICAgICAgICAgIC AgICAgICAgICAgICAgICAgICAgICANCiAgICAgICAg ICAgICAgICAgICAgICAgICAgICAgICAgICAgICAgICAgICAgICAgICAgICAgICAgICAgICAgICAgICAg ICAgICAgICAgICAgICAgICAgICAgICAgICAgICAgICANCiAgICAgICAgICAgICAgICAgICAgICAgICAg ICAgICAgICAgICAgICAgICAgICAgICAgICAgICAgIC AgICAgICAgICAgICAgICAgICAgICAgICAgICAgICAgICAgICAgICAgICANCiAgICAgICAgICAgICAgIC AgICAgICAgICAgICAgICAgICAgICAgICAgICAgICAgICAgICAgICAgICAgICAgICAgICAgICAgICAgIC AgICAgICAgICAgICAgICAgICAgICAgICANCiAgICAg ICAgICAgICAgICAgICAgICAgICAgICAgICAgICAgICAgICAgICAgICAgICAgICAgICAgICAgICAgICAg ICAgICAgICAgICAgICAgICAgICAgICAgICAgICAgICAgICANCiAgICAgICAgICAgICAgICAgICAgICAg ICAgICAgICAgICAgICAgICAgICAgICAgICAgICAgIC AgICAgICAgICAgICAgICAgICAgICAgICAgICAgICAgICAgICAgICAgICAgICANCiAgICAgICAgICAgIC AgICAgICAgICAgICAgICAgICAgICAgICAgICAgICAgICAgICAgICAgICAgICAgICAgICAgICAgICAgIC AgICAgICAgICAgICAgICAgICAgICAgICAgICANCiAg ICAgICAgICAgICAgICAgICAgICAgICAgICAgICAgICAgICAgICAgICAgICAgICAgICAgICAgICAgICAg ICAgICAgICAgICAgICAgICAgICAgICAgICAgICAgICAgICAgICANCjw/vFGcX5tcqSSmgwU7W1hrWn4K Ph9XND0ir3GfYFDfWZpnacKfXbeSZsMgCZYxRycELf a2LMoeBQ4WlNHvP0LlL2DqYSbqFA7ZLONlUZLmcPEyPORrSYEaPiB0GPBiSBldXG4JzQLpIXfgWUJbDA VzSmKhEGHcVRHsHMPsCDYsJMDGMSXeFLGgQfRyKLBpKAHtNZjpANQSXYQ3JJVcQqRoIVRyOMDpNC4KHY NhT669wkQaPY2MOf6XGtQnJK1pwd6QGDduIHMvShyW Nwd7ISgnZT4QkAZaoUC5BHFaVRJLFkQhZ2dpw5NcZCseACCGYNxoHZ9By6SnkZUpZLa+Ij1MDG8fc4Bc LQf6QAYrXC1tyu6TJQaCTjAqN8CinGpqJHTqglK1yUIuLCM5PKgiadXNl3xfvW2uulryFJDiKFAyASPy VXZsNfLnEWEzBSrbDyVBPXmHJgUqO9Evt4XuRcP2HZ KdYnVtPZzrSCYeWwG8UN45fAvbNT0CDOGvPUHvFS30PQY8NBHgJy9KKu7JNcUpLM6upn6GQXkjSROxGj aRYhb7YGfgVF2PcZFiM1ZosFDfs2eILdIuN1PNEBK1YHPgPj5BJNQaMuTyHWQqIQcmDE3nVVYjIQMGtL lgcfG7WX2GXU5lpaYbBX0FWfLdMn8cUx6WFyVwX9Pr H0YtFWWpROGWETkhME7BXMmoCP9fGY0Yq7GDvUBqnE7qer5CDEWqDBVqRjnwjs8MGrzfI5I5jTwhDWSm MPvrMOXHGHgsRI7TKUTkHYY6JVF1FcBfYMAPWsWfZ01hPP9ZG3Tti99xEmM4EJLmCeXiPVlyYG36wDmq moKglPSreWypZN0OTm4+DQplbmRvYmoNCnhyZWYNCj UaXXBKViLwFDCcFTMcNBZvFgW3JyDdEo0ZNGRsZTBvWRJwRhMmLODeOIBwLKvoEUWqUHR5RtU1YBNjMN ZsRS5TChXjBMByZAo6TzDhNAEaVEPaqi5WFXHbPBCqSPG5BlAbHOYyCGKpQEzkHRTyEJVsQld6QBLkKO OmUI5ARsImNLExFUS0RQAiITCxXSStdv4AYNSmJTIc YLDvDpPyEMEyHPBtPWziWAYeHRN5WaSdLLQmELZyMM0YDxCkMFPzDDa4CMRcTMXjRWRgoe9FDGTqFMNw UNgcBSBwIVMcQWHuBWauLGOnWEIbQHD8CIFrDEZyIH4IHcHmOHZlKKNiVaEnCQJqPNYnqy7ZPBXbFHAi MQZkYGJeOPEdFRJxTSftZNXpUQK4EdV1EUKaZMRaDV 2YHjClFJTzUXn7EvUzQRWwMIAvar8VTDKnRSRlJfxcSWLlGQLaZSKxWFxaTGWdPPUyTkS4LQSbHLQrIV 2RXfMcBPFbTiD8VjYfMNPgEKDymv7OVIMpPVXiFwcaXfTtNIDpZJJfVGkpVMBlUSCzUTI7JHBbYAEyKC 6DZdKvRMQqFnLnIlDnEGXbNGKfik7HVKKbUMZaTVEw KLItVOMxYXTeKKjuHLZdUWT3FRv3CJJpLGDdRQ5LXyXnGZVjIjVvCLNwWODfUAAhpe3NSPUlWZTbTfX4 CADzSMAbRLXlFVnnGWBnMZC1YIA0FSPhHAKoRN7ZMpMmUXEsEcj2LtCzAWRvPNHyem6DUAGpZXHrBmor CYFcSMGrXPYaYCfwWRGoWYI4DCx7LXYkGEQgMG9CCz VwZBVlDpsvZAVzDUFtNJXujy5VKEAqHEPgJDE4ETTpXFVjALPjTPqsAPMvCIJvMzIgQEWwBCHxOG2NTr HpCIQmWwC3YtHhGGZkIQXfuy7SBTIuNVPxJTRxEPQlIBNdLOTgURhjRPDqFVObNRz6LRDkVVCxWL7XLj LfPDGeEnG7NhjvQFUvOXCfgm9YIOSmWNSdCDn4ApBu BHZjBDGxTNwfTWEeHHI0LPJ3RYUnGIPzXF2ZRnKmGJRfJWKgCBUcRBWnOVYsfg2TZZRyZLO8VUO7VKQg BUHqJDAvWXkyLBPbLZF3AkCbPURfYICoAI5VFhGvQCFwXSD3JCAeWSLbTCElkv4KYNWlJWJ2EcV4TdLo AXOrXZNzCMhaLDOzKMV8HGI7WXHnSAIaXU9RLdAtVQ SkQNc4EqEvHRUzZRThzg0TRTMsMHN8STM7ZOUnIBAaPHHuQDhwEASiFKB5KahvJDFmQKUbQE2WBhQmMZ WgLLh5STDoAMDqHIGwkl1ZZALkUGW9INj8IQZbZHOtEGFfLVw3bdKpvHIfNYx0MW5AT7ClleVtUGCMOo 5Vr770GTC0ZWOzPf1AS8siKi0hJYMwUIKHSf8SCOg2 SxDsV5O0HSd2TQMuLUAnOOItPWDvNZtwV7P7LFHyZKr+QTvoY0P7UUa2KiUxS3E7YNCuYlJcTWOqI1Ll YOx8CXB3Mj1eERNQZg8+HWxlmTItrImzCTRXYnXyJNU0CRejOVDTAd6O ID Date Data Source [id number] 08/02/2020 01:01:00 PM EDT [facility] [address] [place] [address] PHONE: [phone] FAX: [phone] Name .................. : BASILIO Torres Acct Number.................. : [id number] ROOM. ................. : TR-1B Number ................... : [id number] Stay type ............. : E/R Discharge Date......... ... : Admit Date ......... : 07/30/20 Admit Phys .................... : MICHELLE PA Date of ....... : 1980 Family Phys ................... : MITA ROCHE Phone .................. : [phone] Age ................................ : 40 Film# .................. .:[id number] Sex ................................. : F Unsigned transcriptions are preliminary reports and do not represent a medical or legal document CT ABD & PELVIS W/ IV ONLY [id number] COMPLETE:07/30/20 16:49 ANA CRISTINA [id number] Reason(s): Abdominal Pain CT OF THE ABDOMEN AND PELVIS WITH CONTRAST: HISTORY: Abdominal pain. COMPARISON: None. FINDINGS: Lung bases: Clear. Liver: Normal contour. No acute or focal osseous abnormality. Biliary system: C holecystectomy. Post cholecystectomy biliary ectasia. Pancreas: Normal. Spleen: Within normal limits. Adrenal glands: Unremarkable. Kidneys: Symmetric enhancement and normal contour. No mass, stone or hydronephrosis. Urinary bladder: Unremarkable. Pelvic organs: Status post hysterectomy. Bowel: No bowel obstruction. Prior surgical changes along the greater curvature of the stomach. Presumed jejunostomy feeding tube in stable and good position. Multiple small bowel anastomosis appear intact. Peritoneum: No free air or ascites. Page 1 of 2 [place] [address] PHONE: [phone] FAX: [phone] Name .................. : BASILOI DAN Melissa Acct Number.................. : [id number] ROOM. ................. : TR-1B Number ................... : [id number] Stay type ............. : E/R Discharge Date ......... ... : Admit Date ......... : 07/30/20 Admit Phys .................... : MICHELLE SIMMONS Date of ....... : 1980 Family Phys ................... : MITA ROCHE Phone .................. : [phone] Age ................................ : 40 Film# .................. .:[id number] Sex ................................. : F Unsigned transcriptions are preliminary reports and do not represent a medical or legal document CT ABD & PELVIS W/ IV ONLY [id number] COMPLETE:07/30/20 16:49 ANA CRISTINA [id number] Reason(s): Abdominal Pain Lung snell: No adenopathy. Bones: No acute or suspicious osseous abnormality. Prior lower lumbar fusion. IMPRESSION: 1. No change. No acute findings in the abdomen or pelvis. 2. Stable postoperative findings in the stomach, small bowel and unchanged feeding tube. While performing the above CT examination, radiation dose reduction was accomplished utilizing automated exposure control, adjusting of the mA and kV based on the patient's body size and/or the use of imperative reconstructive techniques. CT dose: 830.8 mGycm Contrast agent in mL: 75 Isovue 370 Method of administration: Intravenous Electronically Reviewed and Signed By Migue Campbell MD , 08/02/20 13:01, APM Transcribe Initials: BECK , Transcribe Date: 07/30/20 17:38, Dictation Date: Copy for: DAREK LUCAS via fax Copy for: EMERGENCY DEPT via modem Copy for: 710 MED REC DISCHARGED Page 2 of 2 Name Value Range Interpretation Code Description Data Sumaya rce(s) Supporting Document(s) ID Date Data Source [id number] 08/02/2020 11:01:00 AM EDT [facility] Name Value Range Interpretation Code Description Data Sumaya rce(s) Supporting Document(s) Glucose, Fingerstick 130 mg/dl 70-110 Above high normal [facility] The above 1 analytes were performed by [facility] [address],[id number] [address] ID Date Data Source [id number] 08/05/2020 11:15:00 AM EDT [facility] Name Value Range Interpretation Code Description Data Sumaya rce(s) Supporting Document(s) Total Protein 5.8 g/dL 6.3 - 7.9 Below low normal [facility] Albumin 3.1 g/dL 3.4-4.7 Below low normal [facility] Alpha-1 Globulin 0.3 g/dL 0.1-0.3 Normal (applies to non-numeric results) [facility] Alpha-2 Globulin 0.8 g/dL 0.6-1.0 Normal (applies to non-numeric results) [facility] Beta-Globulin 1.0 g/dL 0.7-1.2 Normal (applies to non-numeric re sults) [facility] Gamma-Globulin 0.6 g/dL 0.6-1.6 Normal (applies to non-numeric r esults) [facility] A/G Ratio 1.14 [facility] Impression No apparent monoclonal protein on serum electrophoresis. [facility] Test Performed by:[facility] [address] Director: Julio Gracia M.D. Ph.D.; CLIA# [id number] above 8 analytes were performed by [facility] ([id number]) ID Date Data Source [id number] 08/04/2020 11:07:00 PM EDT [facility] Name Value Range Interpretation Code Description Data Sumaya rce(s) Supporting Document(s) Tissue Transglutamin. Ab, IgA, S <1.2 U/mL <4.0 (Negative) Normal (applies to non-numeric results) [facility] Test Performed by:[facility] [place] [id number] Director: Julio Gracia M.D. Ph.D.; CLIA# [id number] above 1 analytes were performed by [facility] ([id number]) ID Date Data Source [id number] 08/04/2020 11:06:00 PM EDT [facility] Name Value Range Interpretation Code Description Data Sumaya rce(s) Supporting Document(s) Celiac Disease Interpretation See Ref Lab Comment [facility] Negative serology. Celiac disease unlike ly. However,approximately 10% of patients with celiac disease areseronegative. Also, patients who are already adhering to agluten-free diet may be seronegative. If celiac disease ishighly clinically suspected, consider HLA-DQ typing.Test Performed by:[facility] [place] [id number] Director: Julio Gracia M.D. Ph.D.; CLIA# [id number] IgA Immunoglobulin 136 mg/dL 61 - 356 Normal (applies to non-numer ic results) [facility] The above 2 analytes were performed by [facility] ([id number]) ID Date Data Source [id number] 08/02/2020 04:33:00 PM EDT [facility] Name Value Range Interpretation Code Description Data Sumaya rce(s) Supporting Document(s) Haptoglobin 115.0 mg/dl 30.0-200.0 Normal (applies to non-numeric res ults) [facility] The above 1 analytes were performed by [facility] [id number] [place] [address], ,[place] [address] ID Date Data Source [id number] 08/02/2020 11:38:00 AM EDT [facility] Name Value Range Interpretation Code Description Data Sumaya rce(s) Supporting Document(s) Vitamin B12 324 pg/ml 211-911 Normal (applies to non-numeric resu lts) [facility] Folate 8.84 ng/ml 5.39-9999.00 Normal (applies to non-numeric res ults) [facility] -----Interpretive Information-----Folate Deficiency: 0.35-3.37 ng/mL.Intermediate: 3.35-5.38 ng/mLNormal: >5.38 ng/mLPatients routinely receiving high-dose biotin therapy may show falselyelevated results. Additional information may be required for diagonsis.The above [address] [facility] [id number], ,[place] [address] ID Date Data Source [id number] 08/02/2020 11:32:00 AM EDT [facility] Name Value Range Interpretation Code Description Data Sumaya rce(s) Supporting Document(s) Ferritin 22.9 ng/ml 3.0-388.0 Normal (applies to non-numeric resul ts) [facility] The above 1 analytes were performed by [facility] [place] [address], ,[place] [address] ID Date Data Source [id number] 08/02/2020 11:32:00 AM EDT [facility] Name Value Range Interpretation Code Description Data Sumaya rce(s) Supporting Document(s) Total Iron-Binding Capacity 382 ug/dl 250-450 Norm al (applies to non-numeric results) [facility] The above 1 analytes were performed by [facility] [place] [address], ,[place] [address] ID Date Data Source [id number] 08/02/2020 10:48:00 AM EDT [facility] Name Value Range Interpretation Code Description Data Sumaya rce(s) Supporting Document(s) Reticulocyte % 1.35 % 0.50-1.70 Normal (applies to non-numeric r esults) [facility] ATTENTION: Effective 01/15/2018The refer ence range for Reticulocyte % has been updated:Previous Reference Range: All: 0.5-2.5 %New Reference Range:Females: 0.50-1.70 %Males: 0.51-1.81 %The above 1 analytes were performed by [facility] [id number], ,[place] [address] ID Date Data Source [id number] 08/02/2020 10:23:27 AM EDT [facility] Name Value Range Interpretation Code Description Data Sumaya rce(s) Supporting Document(s) Progress Notes [facility] YWAQDg7aXvOVEeEr48/IRSioMDXre0NqDPlgWGe4TDxaAVMlA0AsWYE6nN8nIKL9EIoDJwOhAwNoKJWi lbm [file] ICAgICAgICAgICAgICAgICAgICAgICAgICAgICAgIC PoZLLiAHQbAMRhMSYbIGNlLURiUSRmRDNaFWHzPNXyXJGsOJSdYPZzQI8RUXMuUVEmDJKwUQVvMCDxHA AgICAgICAgICAgICAgICAgICAgICAgICAgICAgICAgICAgICAgICAgICAgICAgICAgICAgICAgICAgIC IyLYZjFJOzJYSxLSMuLTCuWLOdXUReEZ8FDKYhSWSz ICAgICAgICAgICAgICAgICAgICAgICAgICAgICAgICAgICAgICAgICAgICAgICAgICAgICAgICAgICAg GBVyCMSsBBOyVSDvSVVrYGIuHVHxIHXvUUKiHMRxMWPkMF8BRMOoLJUkMNJlQJFmYHPwZBRoNNWfRVWz ICAgICAgICAgICAgICAgICAgICAgICAgICAgICAgIC WcCHAtISDrYHIdKALpDQThOMCvSCXrOYZbMUShQEGtZYDpZRNpYEBxXXFyYU7CXOQwIFRkQACtHAWnXS AgICAgICAgICAgICAgICAgICAgICAgICAgICAgICAgICAgICAgICAgICAgICAgICAgICAgICAgICAgIC AuHLBtWEMjPEJaQYSjOXHbTHUeQFCtSIKtDD0GIVNh ICAgICAgICAgICAgICAgICAgICAgICAgICAgICAgICAgICAgICAgICAgICAgICAgICAgICAgICAgICAg XBDfMMTwICRfCBIuIYLuZMZbOSQzQAVjTCKlDHCuKNMjIIFiMS8INEWcIWSlKMPnYYTcCNScAPVeIMWd ICAgICAgICAgICAgICAgICAgICAgICAgICAgICAgIC RiZPUcATBmFXNwJBOkBSAuDPDdREIbPTPcWZWcVABlTPRrUOChFTHmSTTzHRVhZK1MKLAyVORcVATuNO AgICAgICAgICAgICAgICAgICAgICAgICAgICAgICAgICAgICAgICAgICAgICAgICAgICAgICAgICAgIC TsQTZzHQIrIELrIYDoIMOzFVEaJZLqIXQmJCUzFW8W ICAgICAgICAgICAgICAgICAgICAgICAgICAgICAgICAgICAgICAgICAgICAgICAgICAgICAgICAgICAg BTXjPOQrWZLbHGSbMMExDMXhRTJmWVGtVIZfMDYoQWDbBDWmSMIdYQ7CZSYiGRWuLKIlMIFoYDFiTMOl ICAgICAgICAgICAgICAgICAgICAgICAgICAgICAgIC UkHJEsJCQfASTuHHXjTPNlLPEaKZOaHTFgABHvHLEyNLUdYHVkYZHeJTExTYQsRUSyAB2PZI69vGJpc6 S9QRPkVT3xecy/Va1MAHaxfyAgvAEvKZ8SAeKxOP6ggw0XAzUzQI6vdl8XZWyFOfDdP5P7xRVbKIWcTO BLGbMtT36sECzrEu25IArkVCFlWcPwRNu6Zt1MYfLv D1apEDReLlE8KISyUrNxRGdiTU5Sv8ZzlGQbGWy+Hu1YEZ6rm7YdHWhbJQUoRJ9kxh9SOBxPXeGaM1Ev mbC6QKG8DYLcQh4QBDXjMEJbdYTzHkRyTJZRZfOrU5FexK31BGIMUu0+ILbyerUdJotGNrK6DEFlv7Pb HGo9OJ3YEUEdSCf0vLQxQATwD3Uxi2PjJu56HSXnSn yyIOLtzSUUVLOcwkQekFYoRD5bJj5xMGZnVSEzEfMbMMJDUU5NDMAqVYMtdQRkPWWcRKRMQF3RHEhvFO Y3DpjdurHlcNYqGCvhMK8VWEDpmyClHyZnDSKSRAt+Ll4BXJ5bh4EjCLexEpDkIS6czk0OHYqRPcDjO3 L8qOYnF1N9KVfkXk3UQZNmYMVmEePeSXZTTUndQQ5S XE6xptB4ET9NqVSnDIQiADLqeFTsQSa2E73vlJLmUFcyUW4QUZE+Savannah+Ez3TSNNcDJLkGCRkDdOmXRHJ IuUeJ5XdN3WYq8DaX6LlZE73eLwvhpBtOYkeAV5KID1mSFEfSDLQTY0EcYBioR2efbDsPETaIXKERaZx J08vcZCkGFYwMYR8EDVgKk4PETLtF9CdkfOxcRzdbz KeNUAnIIDLYA1DCGuyyaIpmMManKlzWN81vQotIA9EPn6JTkHhMI6vfz3XgPBqVz8BFRAlED8CZGFcMG WwXQVkHIZ0EVQyQuEqPTubUBIrDDHlUKV8EUUeFQWwGA3HCkKsXHQiCtZ1UTJwUMThTSMcmr8KSMBmQH CuSdP6WFJpCNErAXOeDNwwNGXiRQQyPAE7MLJcMRBe DL7GNkKnAPLyANR0JwMmYEUnTTIlgg2OFRElHWIqVwBbFMQxBEZhHFFfPLklAHJlBRNhEJb7GMOvCFAt GR5XUcAtFQYcNNOrUImkPXHlNNAwfp8GKBMqDYGaOaB5WmSxXSVvMLNiPGkaTKZvVTL6McEsMTNwOCJb AM6RCqVcNGDhGPA8LcfsGJTiDFJpuo4CKGJtEZJzXE maQBPsJDQvACRxOGjfOWAeBSJ7HFkwUYJxLZEvNY8SXoZsPLQkTXfyCYEtMWHjGKIfwe6RNVWbSENbDg Y3RQSzQKPpBTAuZFguBXElRNF8WUX6UVKbWTFqEX1FUiVkLDRcBDg5ODKgQZGcWLWqne6ABVGkQCHeXN viQPOuDRZqZUKcJVeaJFEhYFB7ZIG2CUMpAYUsVE9K DyGkWKOmYYckPMWdOOTpIDPhee2DRACoBIVyMYWrXOFlNDHuAUNuSFrySINmYIToSRFuDHTnKQHbMZ1R QwRkSLEnIbK2WSOpFSWvWOLtjz3GZJVqCPLeVEPfSHJpJUMiOFIzOGlbPOWcDOHuPFGeLZByUOMfGQ4A SzGnFJOeNhR3VbLfEAUkJAXbyw8BIKVyIXEiMgK5Xu OsJUZeYWBiKZd6cvJifNXuSOh3YO7WL7IzrqWqOuaJWw2Dg507XII0GEJzYw1YY4niCf7oLKRsIUUBTv 7JRUk5NHKySDBzSQI9WKK9AwQwT8ApLfjqKVr0P9FtSnXnUsP+MAj6XHS1A2AlGigqDBJlEXZ1YGN7PX K3FsznYXZbJBAgCx3wTDKCQa6+IQmjlOUsdUlgNCIFIiZaYIWzGSwhGVPUHt4P ID Date Data Source [id number] 08/02/2020 09:50:00 AM EDT [facility] Name Value Range Interpretation Code Description Data Sumaya rce(s) Supporting Document(s) Glucose, Fingerstick 100 mg/dl 70-110 Normal (applies to non-num zeb results) [facility] The above 1 analytes were performed by [facility] [id number] [place] [address],[facility]#: [id number],[place] [address] ID Date Data Source [id number] 08/02/2020 09:12:57 AM EDT [facility] Name Value Range Interpretation Code Description Data Sumaya rce(s) Supporting Document(s) Progress Notes [facility] SJMDGc8bTjREKwFo54/LPNkwKDEto7IaEJdwVUo0ENbgFQXaR8HzSYU3qA3yPMU3LAwMKqRiPoEiFCXi lbm [file] AgICAgICAgICAgICAgICAgICAgICAgICAgICAgICAg UBWbVZJqBNZjCKTgSSWzUUFoMPFmVN6ILTFbGVUbJKEnCIZlGJSvRXPqINHkVXOrIJAdYMOyZOTbQWSq ICAgICAgICAgICAgICAgICAgICAgICAgICAgICAgICAgICAgICAgICAgICAgICAgICAgICAgICAgICAg SNIgOM4LLRJlEWRnQCYpZDDnZWRkMLOxZNOfVCPaTV AgICAgICAgICAgICAgICAgICAgICAgICAgICAgICAgICAgICAgICAgICAgICAgICAgICAgICAgICAgIC QoYIHyPBAqZMZeSDVbVQ5OQUMeEMVxKYStIRCaMFInNTOuYEGdUCVrZARfCVMrVUPyOFCsWTNpZOCfCF AgICAgICAgICAgICAgICAgICAgICAgICAgICAgICAg JVCvVDRzBCQkIEPqMDKuJUYnUZVkVFLsEA6MPXXiNLUhOVTzQJQsCGHbPBAtFXQjZMYmDFSqGKPlLUWf ICAgICAgICAgICAgICAgICAgICAgICAgICAgICAgICAgICAgICAgICAgICAgICAgICAgICAgICAgICAg QYOpQVDhCU0MCGUmUIBqVXUwKGGeMAXnRKSuWPDxZU AgICAgICAgICAgICAgICAgICAgICAgICAgICAgICAgICAgICAgICAgICAgICAgICAgICAgICAgICAgIC SyUOGmXCMlTJOwRHOdTVSpAB0SEUZgVNIoDVSoVLYjHDThADKiYLLaQPVvAKEyVNVsHSBfZEBoYJErUW AgICAgICAgICAgICAgICAgICAgICAgICAgICAgICAg FOUtYEIlHUPySJSgSYYiAJHoCBTeLBNaYTYpJT3LJYBsOXKaMQVsJISvUZPbVFGvLZDwMJZqXASxEGEy ICAgICAgICAgICAgICAgICAgICAgICAgICAgICAgICAgICAgICAgICAgICAgICAgICAgICAgICAgICAg APKfXDBaSEFsZU4ZNHOvVSWyVVXjCQPcQFHuDDXbDS AgICAgICAgICAgICAgICAgICAgICAgICAgICAgICAgICAgICAgICAgICAgICAgICAgICAgICAgICAgIC MxVHSkDYCsFMOaLKFtCSGeIWNtMM9OKMJmATDuFQDuKJMmSGUaEBWpVGYjFMMnIMQwKPNqXVTqTBLyQB AgICAgICAgICAgICAgICAgICAgICAgICAgICAgICAg LUBoPWKfFSZxJZWpLXKqIZNhIUMvIBAoQLFkOAZgAN0UVU82lMWft9S8ZDSyUT6jakp/By5YFYanneEc dQLjIF5XRvUvAI5qha9GFkYjWY3xvs1SXAjFCbSwB1G2lVDlBOVoREARXePcH28mBYltIh04TIslLDZh QdAlZHy3Yy8WAoCbX6liRRCoLfT8SGPxNzSlLUmaSA 4Uv9RrmXVoYNp+Iv1LNJ7oc6EmFGddSKImBH8jgm8DXSiEFtAxV4BgewY5PEKmWPVaIj9FQBDrFVDgmL BxPAKsTHPLKdTbN9MorQ98DLBAGk5+STmxxfDzTbeTNaIcXYXte8QsVRn1UQ6AULNdWYd1aBWaQMCwU0 Rdp0UiHv13WWKkSqbiFVI4GHvrhAJufiYhYSCTPWAv lRLfUF5gVh8gBIOxAXF5TlYjJXZPMX4JJQCcLWCncXXrGBXkNFNXIR6WIFutZNN8RgogsfFdyQAdEJnq FR8BINIbluCpGpOrUEKNQGa+Zv6GEU3mk2JuYVcqVdUkHD9yre2YXVtGSuSqT9C9cEMlK5Q1TEewIu4W VILiWXCbIXayWEVMWFiaNR2WZV2ghaL4EP0FgDSkWK FrVTLmlBLcSSi8N03fvGNvDXbmBM6GLVT+Savannah+Du6TVGXxZUXxMCQdXcFaZEWVIgNvO5YqC7UWh1OyU3 FhLC98ePqvodQeFUcnFB6ICO9mACHkSMFCLB7NjLKaeB6ybuWvQGAnYEMBItWrP55ppGZxNUEfUWS7YI LyPs8SVBUiH2WyquOvtYovkzUpHITfXUEFAV8XGYih foMnxXPvpIywMQ63hTcaMY7ZVz0YScLjGM2udr0SbZKdEs9WXVWnEx4NGHSjVAKbFVHjFIY5TETwDvDo YIsyWEIzBRXsSBM2TCOwVOGdYH5AZvMdCOZaELG7POKiVEJtGIWhao1JNGUfDUPfOUE9KMStISDkUIYn HKdsYOSgCYYhOTW5CYJhYIKlTQ5QNqKbOPBwCQUxMH RyKGCtDMEofw4LZMPbSCAqFUZzPVHbCDLmDMTsFUmwRIRrDUMwQbD5KIToIZJsEQ4IStXeMWNzQIT5Cm ogNUAoGDRbbk4RMHHcLJFzLbd5SvJoOIKlYMWpCXyiFORlAJDuObIqSMOzKDXhTV5DXhJpGNZiECN3DN kuDMFcTJKqgj3JQTGgXWFgRYH2WEIyZOTyFOUuBYfj YPZzCOH2UQG0COUsDEXmEK2SFbAtXNZjEYZcZDPwFXKdCHBnkh4UDBUeQSLqYNBmJDQaKQZlKUAqZYvx OWEuGJE8JopgLCGpYMXoYA1EJyRtDAMgZPE6GTJbDBQdMOWqvf8XFUTnZXCwGam9UDSbTHIrORDgMVfu PWEoZNK1ZhS9AUTtYRJiYV6HLyFxVGNlZHm8IUwhRK RfEZYeyw9JSTJbMEGaBLljBIFyXSKcEDVoTXsxLOLbNJV1MAv6VLToUUFmSL4NEdRjWYljGOURMyc9TA orC9y2KCXcVa8KS4Ppy7EcPdVuKQSJYWgeCD1yoiMbHTKuCb2XN9uXMxq7IGN6OzoxTYH4CnZ3CXB1UD HeJOI9TpfuDYWqBFIoWd2oKUH6XGypIDY0CbK5CDSc FHKnJlTuIXqjTkW9NcXqTkA0UnPbOG5KNw4EObD5KBN3lHEcQo5CAWXrAM2XRZMAU8WQFl== ID Date Data Source [id number] 08/02/2020 09:11:01 AM EDT [facility] Name Value Range Interpretation Code Description Data Sumaya rce(s) Supporting Document(s) Procedures [facility] JLJWGo1iJjHXJyMm39/FYKzmJCLxv1QhDRgiFUd5UOdfSODqR8AyQXS7rK6iPMY9GEuCHcWlIjWrPKNt lbm [file] ICAgICAgICAgICAgICAgICAgICAgICAgICAgICAgIC AgICAgICAgICAgICAgICAgICAgICAgICAgICAgICANCiAgICAgICAgICAgICAgICAgICAgICAgICAgIC AgICAgICAgICAgICAgICAgICAgICAgICAgICAgICAgICAgICAgICAgICAgICAgICAgICAgICAgICAgIC AgICAgICAgICAgICANCiAgICAgICAgICAgICAgICAg ICAgICAgICAgICAgICAgICAgICAgICAgICAgICAgICAgICAgICAgICAgICAgICAgICAgICAgICAgICAg ICAgICAgICAgICAgICAgICAgICAgICANCiAgICAgICAgICAgICAgICAgICAgICAgICAgICAgICAgICAg ICAgICAgICAgICAgICAgICAgICAgICAgICAgICAgIC AgICAgICAgICAgICAgICAgICAgICAgICAgICAgICAgICANCiAgICAgICAgICAgICAgICAgICAgICAgIC AgICAgICAgICAgICAgICAgICAgICAgICAgICAgICAgICAgICAgICAgICAgICAgICAgICAgICAgICAgIC AgICAgICAgICAgICAgICANCiAgICAgICAgICAgICAg ICAgICAgICAgICAgICAgICAgICAgICAgICAgICAgICAgICAgICAgICAgICAgICAgICAgICAgICAgICAg ICAgICAgICAgICAgICAgICAgICAgICAgICANCiAgICAgICAgICAgICAgICAgICAgICAgICAgICAgICAg ICAgICAgICAgICAgICAgICAgICAgICAgICAgICAgIC AgICAgICAgICAgICAgICAgICAgICAgICAgICAgICAgICAgICANCiAgICAgICAgICAgICAgICAgICAgIC AgICAgICAgICAgICAgICAgICAgICAgICAgICAgICAgICAgICAgICAgICAgICAgICAgICAgICAgICAgIC AgICAgICAgICAgICAgICAgICANCiAgICAgICAgICAg ICAgICAgICAgICAgICAgICAgICAgICAgICAgICAgICAgICAgICAgICAgICAgICAgICAgICAgICAgICAg ICAgICAgICAgICAgICAgICAgICAgICAgICAgICANCiAgICAgICAgICAgICAgICAgICAgICAgICAgICAg ICAgICAgICAgICAgICAgICAgICAgICAgICAgICAgIC AgICAgICAgICAgICAgICAgICAgICAgICAgICAgICAgICAgICAgICANCjw/qGVkC6hgzWQccwW2H9spAt 8XMc3ATU7tx5HfFBMrMXsiusCmNvvVAnMlMQJrPnpEJbe7NUxmUF3NbXGeW1XpA1YbVCvnMY6IPIBaEZ ZtbHBdFFOyICJpEvV8BDPvXKxzUA7SwQMoLYgbUTLn TIXdCySfJSNfIC4LAKWgN885kmNtFt1ZLn4LPsKzMJ2xys9OTrWoRGTfRmeMIti4RIbeRL7HgXAuuVHu SbUyDZQTPxDjY6efn6CaJcHyWCYOOSzvCD9Zo9HyqFHzYQi+Kk7SRU7rb4SsINziZxSrPN4say6IZScS NvUaP5VrsWgwBLMqb6CqHMDzATTuCdvaEIS0BZmgiP OdpfRcCXEIKFQlvTClXV9nAy6rLQHwBMJ3GoA0RUPNCX4XEBUsUWVfjVTqJZPzZIZFRF2LLVvqHYQ5Ae ciaaKyjECmHGeoRR3CYHPuinQcZyAaGOFQAGe+Ho1DCO2ks2NhCZapCrHjBJ7ahx1QZRbITrImW3X7uP ThG6W0DXpdZf9XBCGeICVbVcNlODNVZVzmJX6ABQ9l reD5FO5OjXQsLREsLTLfaPAnJVq2Z22fsZYhJHyjTQ9QYLW+Savannah+Ks9UVNLqXYEeWTMlGmUsMMOGCmRe Q9KhX9OEf8UdK5LbNJ08eQijqqSzLBnmDF0HCI8aKVMvEIYNLZ4NdGWsjO6dkdBfGVPmFMIKSoZsH72d zUDkYGGnELN3OAOaNq6SDYWwV2NpwvAntXfzbmVbRT HdXSVRNO1RLYygrzYxdLRflNdnOD87iJabUQ1RXn3MFyVeAV1qzu5RhZVhPt0VAYObLX7WBQZxBJEdAP WoNJJ8FLHiBwOgMPfzJGEwZGPqVYI2UBCzOLMcVL8NEeEnFVGnHYOaYVLbCYAtQQCkll0FBLRjGNWuCr m5BACsEVNoWHOsOSqfHONzWMMdWEL4XGSyIVQcPS6H FeYePPQqYPD9OpOcHYVsBHDagw0TBZFtQBYiOuFxOGOnWJYxXFBwLRuqLPSkVKQ7PcI2SNPqBYVrTV2C QmIyPMYuQAF5CfDtFYNwBBKalj1BJBStLXUlEKK0TIEvLMSdWEMxMRrmVLAoECT6ZYymXXEaVAHyZY9Y VbMwCGEuYSE2YvnlUBVqBAWgwo0SEOJqWMApSvxsDT NfBBNcTBIoVDtaINOeIRR5HBN7ZRCzILUtGT2LQrSnRSRaFXsgZNtgVZDqHQUnez6EPLGmTCRqSMD7Cl QqEJMqBEJbKPhqPMLbDWV2Usl1FOZpGTYsQB7TJcNjTTXeZPr7SbMfBNMuDIDief0UWTDjVZWoBFIrXh JtQNQdDKPcLPdtINHkPVG5QnWzDNTvUDUgXC1YCxUo ZOSoLLj8UMppXCRvPONlal0BTBTsXHTeVEz5EiLsZQReHRPaJCjrGIHuLRIvVDu8THUvBKMmKD1EPfXp PCLiAZXkEdVcZESqNYNavv2RXBWmIEEoRJDmLTUvEXUfZHWvZDqrNLSdAGXiFNI2HAFxLKGfWW1GVeWv YXOdDCHbSfZeOKXmCHBiim8XBGYmSXXoCmS8PYDxSM QfZYLdEOk1fcLnvZOwWXc7RT6MU1KlqsTjOniNDh5Ru295TYQ3MAKmCv2II7ozDy7sFXHpFEQIRa4XMJ t7NcV4JDj3NFMlNoRzBUfdEdKkGNYjJoguVUR6OsA3KWD+IIlnPjQ2EhexJQM1GKPpUGMhDhL4AoP1V3 C7OCM3EjT8UA3uMFLTUy9+IEdgdMWpcGhrZXGUUnEeJEM9LMwnYSGCSk3V ID Date Data Source [id number] 08/02/2020 09:10:41 AM EDT [facility] Name Value Range Interpretation Code Description Data Sumaya rce(s) Supporting Document(s) Perioperative Nursing Note [facility] ECXEVy2iHyTMBvVo25/SJWvcEIQze1LtOJlgHTm2TLhaQGFoZ1BlOPG7nM4aCHW9JLaJJdJsInFsRYWz lbm [file] nzXENhGuB3GAOkQKnxVmA+WK1oYAo+Hz5Hr4DahfJ9etSaDJuqDRf6Jd5XKWLDB0HNIk== ID Date Data Source [id number] 08/02/2020 09:05:39 AM EDT [facility] Name Value Range Interpretation Code Description Data Sumaya rce(s) Supporting Document(s) Procedures [facility] PPPSUv6oGmEWIcMg31/TWTodRRMgq8PjEIbfFFb6RCidYEMdB9IjQNU5sN8yYOK3UAaKLxXiKyJzPCIi lbm [file] AgICAgICAgICAgICAgICAgICAgICAgICAgICAgICAgICAgICAgICAgICAgICAgICAgICAgICAgICAgIC AgICAgICAgICANCiAgICAgICAgICAgICAgICAgICAg ICAgICAgICAgICAgICAgICAgICAgICAgICAgICAgICAgICAgICAgICAgICAgICAgICAgICAgICAgICAg ICAgICAgICAgICAgICAgICAgICANCiAgICAgICAgICAgICAgICAgICAgICAgICAgICAgICAgICAgICAg ICAgICAgICAgICAgICAgICAgICAgICAgICAgICAgIC AgICAgICAgICAgICAgICAgICAgICAgICAgICAgICANCiAgICAgICAgICAgICAgICAgICAgICAgICAgIC AgICAgICAgICAgICAgICAgICAgICAgICAgICAgICAgICAgICAgICAgICAgICAgICAgICAgICAgICAgIC AgICAgICAgICAgICANCiAgICAgICAgICAgICAgICAg ICAgICAgICAgICAgICAgICAgICAgICAgICAgICAgICAgICAgICAgICAgICAgICAgICAgICAgICAgICAg ICAgICAgICAgICAgICAgICAgICAgICANCiAgICAgICAgICAgICAgICAgICAgICAgICAgICAgICAgICAg ICAgICAgICAgICAgICAgICAgICAgICAgICAgICAgIC AgICAgICAgICAgICAgICAgICAgICAgICAgICAgICAgICANCiAgICAgICAgICAgICAgICAgICAgICAgIC AgICAgICAgICAgICAgICAgICAgICAgICAgICAgICAgICAgICAgICAgICAgICAgICAgICAgICAgICAgIC AgICAgICAgICAgICAgICANCiAgICAgICAgICAgICAg ICAgICAgICAgICAgICAgICAgICAgICAgICAgICAgICAgICAgICAgICAgICAgICAgICAgICAgICAgICAg ICAgICAgICAgICAgICAgICAgICAgICAgICANCiAgICAgICAgICAgICAgICAgICAgICAgICAgICAgICAg ICAgICAgICAgICAgICAgICAgICAgICAgICAgICAgIC AgICAgICAgICAgICAgICAgICAgICAgICAgICAgICAgICAgICANCiAgICAgICAgICAgICAgICAgICAgIC AgICAgICAgICAgICAgICAgICAgICAgICAgICAgICAgICAgICAgICAgICAgICAgICAgICAgICAgICAgIC AgICAgICAgICAgICAgICAgICANCjw/wLTsM2cytDWa ddR7D7eyTm0NQo7ZNP5kh6OkDCPuQFjsyrJmGtxTIeWxWOKvUleEXne3WHadDP9SvVJwY5FgK6CpXOzi SO6VWHIoSLTsrWIwUKJiMFQnVzD9WMEhOVnoOW4XkBMaHJcbNMKtKTKqZvLwJKNrSUTrYAGmMX0HFNNv B685wuWjLw4UBh4KIwSqXD0kia7WKzLzZZPqPjeJLr p4EWfpBJ9XpIRvrIJoVkLdFNZTCuAcH9knc5FjAjkwMLIWEBbcJV7Uv5MupIBwHMt+Kp7RFW1kh6AfIL ntKbAfEP0fda8YIKoULcNmM1CsfHtdRYUhm9NgNBBeJTTzq4umtxSpYRQ3TPcrpzSlgPOWCA3dxTGkwp BBbGxlbiwgTUQgYXQgMTAvMTMvMjAyMCAgOTowNSBB KVhFLyRyQ0Ttg8UuRmX1SIImTaIzBDrvGXWzKhB6JQ15vCwnXG5QMATaRZHyIR83XMN4JJFiDu7OIy1B HqZeOD4swh3OFafaWYXpTfyVIrh5BQsbPJ0JfBRdV0HmhTFaf1pJDgVqF1UBZFJ1TFZmVf5TIJWpEgSr MGBxSIkdUJ6xDHGxXHDXbUpdrqC1YY4GLA5smvWvHP 5KZtKaNe1zSk4GOtXsE4XqR2JpKZHrOWVJJXhnDE8OXBleUN8lAF6Jy8DOiGKgsL1lvl4THVVtFMBhCi hpgc3OKdkyH8M6vTffWCZiOiKgJFHPCVreBP8JMFCrBUY3IIBxXJKyWSUJPxDgR66qZQ8SR1Ubp21kXm X0SQQtAbPfOPltXG75vHdpzhCrqHYrzIuqUB5RLb9+ FSvnobPpFrjTLjvxBSHFZpYjLvpRBuFrRMPlDCYgOPAdQvQ1KpKuDy9XIWXyOWPzIPAuTnQtIBGkMOQf TEygBYFrJGAyXDVpKILhSDMiDS2EJiRvFMAqHiD6ViyzLKGwZTFxre3IELGlJYRzSVJ4AqCeLWSuHMRn USsoGAOsJMUaIAx5REQnKEVqVY5QUzYbDHEdBJJfEL RpMHDyHAXrbt2ZMROdQSOmFYL5IJPwTNVsGJPvEUvyXJLkMQS5JOG3GOPwLWQlCB0TUvCoNPDaRBR1Wy JdNTPaMSVpal4SPIXtAGMoDDl9MZUoJJSnOXVpXWmuLOEjVSB3RCW4XUOxEPPmRT1CQdKoFBCxRLpzWf rbMJHmTCKlbs5NBQZuLRZzZcEwWwPqFDSmZQHvNUbj KGPzDWC6FSb8EKNcVZUhQZ3KDaNpVEBdSVqvSqFdTQPlEWIgyl6BBDYqUBRhUHY6IrWdCREbKWZrMHia KPRgUNMaNEC0PBIsTPMzFB7XCxTeUCWeXxDmUrCoXBMsQFTqcx3EJBYfJFOnYIWlUGIuOWMcWIClPLbc HELzLAQrEbbsLOSkGHVlNS1WXlBoXAZfSkT1RIquVD TmHSQohv8AZVXiLJTgMbi7BHIzOXJxWELbNWyyKUSeXVJtSXT9PKKdROUxRD6MGeKmVQYzRzBcMzOmNT FwLAIeqk4PFQCfWPXrJvKmQcSyKPYkUESdSLmvZEAyKZW6DRd0GMGbWOJhNY6YNlJpVUTbYgByDVjgZA XeHDWneo6KZIItTOCzRWSkSPYwSWXoHELtEFq5rqGp tHZqEOe5GE4BB5AvjaBtRyiFFy2Cz695SJV0FFSaAe7HP4lwNr9cAUPdIUKKBx0MIPx6VINbRTfxNIEu KCXgNCYkUnWsYhvtYJM2ABSbNjHiYLI+TFrvPSL4D1X3BvBjDIK1T4OoBES4EAFpSda5HeFkXpO5Uq5w XSANCj4+BUcxtEHudPbuECRPCbU4PCPkTTjaJYEOOc8X ID Date Data Source [id number] 08/02/2020 09:03:03 AM EDT [facility] Name Value Range Interpretation Code Description Data Smuaya rce(s) Supporting Document(s) Anesthesia Postprocedure Evaluation [facility] DXRYOr6xPhEQExCw41/NPUbbQAQxu1SrLJcyHKt2LPbrCQLhQ4FnGCU4hS0oNID2SRjVRfFgNmRrVQIv lbm [file] AgICAgICAgICAgICAgICAgICAgICAgICAgICAgICAg ICAgICAgICAgICAgICAgICAgICAgICAgICAgICAgICAgICAgICAgICAgICAgICAgICAgICAgDQogICAg ICAgICAgICAgICAgICAgICAgICAgICAgICAgICAgICAgICAgICAgICAgICAgICAgICAgICAgICAgICAg ICAgICAgICAgICAgICAgICAgICAgICAgICAgICAgIC AgICAgDQogICAgICAgICAgICAgICAgICAgICAgICAgICAgICAgICAgICAgICAgICAgICAgICAgICAgIC AgICAgICAgICAgICAgICAgICAgICAgICAgICAgICAgICAgICAgICAgICAgICAgDQogICAgICAgICAgIC AgICAgICAgICAgICAgICAgICAgICAgICAgICAgICAg ICAgICAgICAgICAgICAgICAgICAgICAgICAgICAgICAgICAgICAgICAgICAgICAgICAgICAgICAgDQog ICAgICAgICAgICAgICAgICAgICAgICAgICAgICAgICAgICAgICAgICAgICAgICAgICAgICAgICAgICAg ICAgICAgICAgICAgICAgICAgICAgICAgICAgICAgIC AgICAgICAgDQogICAgICAgICAgICAgICAgICAgICAgICAgICAgICAgICAgICAgICAgICAgICAgICAgIC AgICAgICAgICAgICAgICAgICAgICAgICAgICAgICAgICAgICAgICAgICAgICAgICAgDQogICAgICAgIC AgICAgICAgICAgICAgICAgICAgICAgICAgICAgICAg ICAgICAgICAgICAgICAgICAgICAgICAgICAgICAgICAgICAgICAgICAgICAgICAgICAgICAgICAgICAg DQogICAgICAgICAgICAgICAgICAgICAgICAgICAgICAgICAgICAgICAgICAgICAgICAgICAgICAgICAg ICAgICAgICAgICAgICAgICAgICAgICAgICAgICAgIC AgICAgICAgICAgDQogICAgICAgICAgICAgICAgICAgICAgICAgICAgICAgICAgICAgICAgICAgICAgIC AgICAgICAgICAgICAgICAgICAgICAgICAgICAgICAgICAgICAgICAgICAgICAgICAgICAgDQogICAgIC AgICAgICAgICAgICAgICAgICAgICAgICAgICAgICAg ICAgICAgICAgICAgICAgICAgICAgICAgICAgICAgICAgICAgICAgICAgICAgICAgICAgICAgICAgICAg NFDpMAy9J5kvCMSqMRVnHS0wJXz8Bf7+DLuARfYiPNN9kcMbvJ5MLV4ve1WvQLigZFOpb1GbBAr6DH9M DIYqUBnxXD7TFHbzld2BJQWxPGRhmGKZu1miDqYhZB S0ELLeFizuKY1QOAYfV7kcfkAyXGBoHBCOOX2SXkNhA6TthF29WSYRXa8+MHfwcjSeBvlFKoD6SWReh1 BxZSm9BL9NEBTfLbfpw9OaUtLvCMBJGWwlTS7WYOC9QVB1STOpJv0OESJmP689rtXdRO3SXo1RQgQwDN 3ici9XCcZtJFSqEubCJri4JMyiLZ1JnTLkWVvSktYz sIdow0boJYRsf1Eerw8hINY0ebNtABNvzZOuvNfeeaEozHLHLEk1rNGOk5fxJqDPg5peq23lHKJZRQMb qJRnZH9uLn1hIASlERM5XcZgMTQNHA4YUJAlXOKduUSfBWEsSTEELC3IYXcvHYA8ZtwylqFtvIVqJJai OC7EEAKnpzAiOmJoXNFFJSe+Vh7DPU8dj4MhOTyfJe NrTB2bgu1ZSQuUVyTuK3W7bAMeM5P6TLzwZr9RLKPoAJCmVfXlIOOBSWjkZS3XKN5qwcO1FA3VeKYwEB CzRMBfgNOjZRk4V41ocPFiPSgiVL8IMFM+Savannah+Yi5FFEEvCLKxJXMzCrZkXNFCEkFyJ0BoV8VKf7EvK4 HdLX82rIgbjgHoJOlnWM3DJK2oSHZzRBLJBG4KmMMk nA2wngIuSMYiFEADVzZzD54rlUYsEUOsRBT3GERpVf0ZZNFkN9ZtkjVpnFxplpPlIULgKFVJMO8FSGlj nuIuvWNnyQflSL01uFtzLA3OVa1MYeCmDU3ygd4GxPHkJi7JCMZrIY0AOHGaOVPkORUtZLH2DSGbRvTr JOzyLJBuBWLaHCP4YMZtLSQhSI3QBdUnZIAdOcOhKZ DrDKWvZNLhle9KAQJoPQAaWwFyBMHsWSHzUYDmKTwoJBJdFEDsMDX7ZEInWTFwOJ0DHoYlRINgSWI9FY SiIEJyDOPbwp3SSEZoOANxZdmwIJKoTYXnKMYyGFzmIUCjUNScRpB2PGLxYMFuFW0CCeFdIRGeSKD1Au mjYDNzPANrig3NYWDpHNTvDLH9QvHlHHPbLCOaGVen TPUtFXW2FIVtWFSiKHPsVT9AFvBhOBGiBHLzYDynBDThXGFync2EXQTdUFDyYBP8WIYsEZAdTOEkMEzm EHUmQVM4VUKhDCRtXUDuRT1BJcMxXIMfRGecAQIqTSAbBORhjr0SKWNfEYCeQYI1BOTbHYJsKLPrBYad CMGsHDD3HeK2DAPhJUVvOG2UNbNyOZEgSWq7JPOwNU LxTXXcpw2DINLbXOZbCSI2JtEyTLXxWXYrKNqaCAXzZJV4NOc7VSYhMFYvXZ9CGrMtFNPfNdUwQNZbAE SmYUEvsb0WTYSrAYAvYSl4ANEjRAVaUIDbPRcsTGQhYKJvIHb0SEKpRAUfSP0VEtTzDVMqUyRpXhOuHV GiGIChqj0VHTIgJMGgTSg6ZIAbRKDaODDsBIxxPFCf CXOxJmNaMQSjNDUwOF0KOlDnKTJlIqAzHJXiJCCzVQUpqn9FPFVpILXqYsG3SPEhVFBdZHQfVLm8puBp yZIgVUp3LY3OK7DbifZpKvwWZm7Ft948DKX5IQKkYa8NK5xiOn3nSDYjQQSWQz3SULd1FxG8AIR1Ward OUN8CaJ4RSh8FUE9OUA1YAU4CkU9BMb+KDvqUaP3Xj lvHUDpOIRqTKv2RTn2BsNbAiTaMYR6KsL2Fp4nZHSXJb3+ECoylZZstGknCVNIJrJaZgJ9JNoeVOWDSl 0K ID Date Data Source [id number] 08/02/2020 09:02:13 AM EDT [facility] Name Value Range Interpretation Code Description Data Sumaya rce(s) Supporting Document(s) Perioperative Nursing Note [facility] ILXMOc9kBjLBVkDf38/KTVxuAAXmo2UnAVjdWOk5PNtxZQTwF2LyMGW3kG4jPGB6RCoVUoXnZdXwFSDb lbm [file] k+TP1rJFc+Vl0Xi0FwplM1giEqICstEAn5IR7SQUNZS5GGVb== ID Date Data Source [id number] 08/04/2020 03:23:00 PM EDT [facility] [address] [place] [address] CNY PATHOLOGY CLIA# [id number] Surgical Pathology ReportPATIENT: NI DIAZ CASE NUMBER:[id number] #: [id number] Date Collected:08/02/2020Account #: [id number] Date Received:08/03/2020DOB: 1980 Age: 40 y.o. Date Reported:08/04/2020Sex: FLocation: [id number] Attending Physician:MARY KATE Pinoinical Information: RULE OUT CELIACSpecimen: SMALL BOWEL BIOPSY FINAL DIAGNOSISSMALL BOWEL BIOPSY:MILD NON-SPECIFIC CHRONIC DUODENITIS.HISTOLOGIC CHANGES OF CELIAC DISEASE ARE NOT SEEN. GrossReceived in formalin labeled Ni Diaz small bowel biopsyconsists of a light hameed villous friable biopsied segment of soft tissue that is 0.5 x 0.2 x <0.1 cm. TS/1 AP/kb Electronically SignedBy:ICD: K29.90 SCarmelo Vargas, MDCPT: [id number] PathologistI ATTEST THAT THE ABOVE DIAGNOSIS IS BASED UPON MY PERSONAL MICROSCOPICEXAMINATION OF THE SLIDES (AND/OR OTHER MATERIAL), AND THAT I HAVE REVIEWED AND APPROVED THIS REPORT.PERFORMED AT: [facility] [address] [place], [place] [address]THE TECHNICAL COMPONENT [facility]FOR[facility] [address] [place] [address].ALLERGY SPECIALIST: Eliane ANDREA# [id number].NI DIAZ Page 1 of 1 Name Value Range Interpretation Code Description Data Sumaya rce(s) Supporting Document(s) ID Date Data Source [id number] 08/02/2020 08:34:56 AM EDT [facility] Name Value Range Interpretation Code Description Data Sumaya rce(s) Supporting Document(s) Anesthesia Preprocedure Evaluation [facility] YKXUVw6hRvLKLhHw18/OTOaeLPNvu9MsVEoeFAu5GSoxOQOdK3CzAVD0zD3rBYJ9JRrOYlKlXbVqTCQz lbm [file] it program auditor/VbYra/62XpIJ7qwqk4ruPHHvTHU4ZBbJuf5v1tSjzvq/BvRC0+g8sz53xt0iEa7al6mG/DPMscSF [file] FCWuRH1xPHUJWg4+QFyqpHCfwMpnUXWGYuS7OlG4QHznWORSVk1B ID Date Data Source [id number] 08/02/2020 07:40:33 AM EDT [facility] Patient: NI DIAZ : 9 PACS System: [facility] HospitalCymphonix VikiProcedure: ULTRASOUND ABDOMEN COMPLETE Provider: NEMO LAWSONHISTORY:40-year-old female with severe epigastric pain, nausea, and vomiting for3 days. 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 Prior cholecystectomy.TECHNIQUE: Multiple static images from real-time ultrasound of the abdomen aresubmitted.ENCOUNTER: Initial.COMPARISON: Correlation is made with limited, selected images from unenhanced CTscan of the abdomen and pelvis performed on 07/31/2020.FINDINGS: The liver appears mildly enlarged, measuring 17.0 cm. The liverappears normal in configuration and echotexture. There is no sonographicevidence of fatty infiltration of the liver. There are no hepatic masses, norany dilated biliary ducts. Common bile duct measures 7.4 mm. The gallbladderis surgically absent. The visualized portions of pancreas and both kidneysappear normal. There is no sonographic evidence of renal mass, hydronephrosis,or calculus. The spleen is slightly prominent, measuring 4.4 x 4.5 x 13.4 cm. A normal variant accessory splenule is noted, measuring 1.5 x 1.6 x 2.0 cm. There is no abdominal aortic aneurysm or ascites. The visualized portions ofinferior vena cava appear unremarkable. IMPRESSION: 1. Mild hepatosplenomegaly.2. Status post cholecystectomy.3. Otherwise unremarkable examination.Electronically Signed by Samy Cornelius MD 08/02/2020 7:40 AM Name Value Range Interpretation Code Description Data Sumaya rce(s) Supporting Document(s) ID Date Data Source [id number] 08/02/2020 07:03:54 AM EDT [facility] Name Value Range Interpretation Code Description Data Sumaya rce(s) Supporting Document(s) Care Plan [facility] YMIPPz3bJkOCYiWt75/GPSteRDGnj1OlFQrgLGi3GGxyDPOxA3UbQFP1qH1uSRI2XTsBWgWdSsCgLUWw [facility] [file] AgICAgICAgICAgICAgICAgICAgICAgICAgICAgICAgICAgICAgICAgICAgICAgICAgICAgICAgICAgIC AgICAgICAgICAgICAgICAgICAgICAgICAgICAgICAgICAgICAgDQogICAgICAgICAgICAgICAgICAgIC AgICAgICAgICAgICAgICAgICAgICAgICAgICAgICAg ICAgICAgICAgICAgICAgICAgICAgICAgICAgICAgICAgICAgICAgICAgICAgICAgDQogICAgICAgICAg ICAgICAgICAgICAgICAgICAgICAgICAgICAgICAgICAgICAgICAgICAgICAgICAgICAgICAgICAgICAg ICAgICAgICAgICAgICAgICAgICAgICAgICAgICAgDQ ogICAgICAgICAgICAgICAgICAgICAgICAgICAgICAgICAgICAgICAgICAgICAgICAgICAgICAgICAgIC AgICAgICAgICAgICAgICAgICAgICAgICAgICAgICAgICAgICAgICAgDQogICAgICAgICAgICAgICAgIC AgICAgICAgICAgICAgICAgICAgICAgICAgICAgICAg ICAgICAgICAgICAgICAgICAgICAgICAgICAgICAgICAgICAgICAgICAgICAgICAgICAgDQogICAgICAg ICAgICAgICAgICAgICAgICAgICAgICAgICAgICAgICAgICAgICAgICAgICAgICAgICAgICAgICAgICAg ICAgICAgICAgICAgICAgICAgICAgICAgICAgICAgIC AgDQogICAgICAgICAgICAgICAgICAgICAgICAgICAgICAgICAgICAgICAgICAgICAgICAgICAgICAgIC AgICAgICAgICAgICAgICAgICAgICAgICAgICAgICAgICAgICAgICAgICAgDQogICAgICAgICAgICAgIC AgICAgICAgICAgICAgICAgICAgICAgICAgICAgICAg ICAgICAgICAgICAgICAgICAgICAgICAgICAgICAgICAgICAgICAgICAgICAgICAgICAgICAgDQogICAg ICAgICAgICAgICAgICAgICAgICAgICAgICAgICAgICAgICAgICAgICAgICAgICAgICAgICAgICAgICAg ICAgICAgICAgICAgICAgICAgICAgICAgICAgICAgIC AgICAgDQogICAgICAgICAgICAgICAgICAgICAgICAgICAgICAgICAgICAgICAgICAgICAgICAgICAgIC DmWGOzMRKsNCHaYNGjBDTgZRFwXTVvEVZpIWKnOANjBWJrEDJqVDMhQCTsSVUeQUw0F6fdXVUqAXUwRI 2lCXw0Py7+GHwEIoFjZFG2ulMrsW8GOG3dr1FoODnf KJPjz7UgUSd1EY8EHJSpIPgdGD3NDVcdnt6AOJFzAOGeaIGEn7wmRiXlRHB5MQLiThqbAU5XWJRbZ6hb vsMxLUTlDNDFKT0NGcWrU2YjaK60PUJCKc7+AMrpijNmAkkMChEuDILaj8SmBAh9RZ5SXXSxXackx8Nu LdQpMJUNJTfmDB0WZQS0ULDpPTOxNq8GSSWyU231fc SoKS4NWj4IOeGfRB7anx8OJgWcRZVsQrcRUab5PFzrOG3TaKCxYJuBBUIeQQVdCE9vJizxTE3bcjJOEV EglkI1yJVhRQpUSQR3JAFuSkMqAkMvImUtDXt5BCWdJL4kWHuvGT7FDHR3TFjiOEWoJBZgA4cFUcVsCF vnQHKhxBykUC8IOcJpK6NcrqAmzVSpPISgJCORGw3+ ONsmfjYbFmxMRoByUJSai5RkTIx5IZ1RCOFmGBllWY2HPBLldH9fRPffGB3UPkFcDGXgNKHUXeDcJ33x lZYfYIo3H2OnMvPkUFSgEzdwLSKvIUmhSkRqMYKpJzCiWXmnYA3+ID4+SGruMZ4IQSbfwsYeAJYuIu8Q NHZkQPWzSD4vJUUsLZIfP1C2xVvzKICMYfWiH5fxpu fvGR4bMDFcE748qWufskErLBDrIAKnIl3MRIXxWKA3CKXuzDCvQVeaQSROFWrgFY1TiDXxUZR2sT3eSJ eiIKLhOILnQ3hUHfAfyBdnSY49jWyessHpyZPmBLv+Ci2NBH1dy5FoGZo5tePxVGsvSYHqHSktBUVrDE ZuDUTxJTQ8OVX7ISHRRhDpDENgOMCsJTmsIKKiHXCg uj2VUCQoPRTdWqZsWjSyFUBxXDAvPQrcATJdHYQ7QkpyMSXjBZYfNL2YHxXkODMvLUYyRDzuKVSxGJDh ud0ZOQIhOPWtQmUhIpQgNISdIBReRPffBRToKWTtExL0GNZiXVCaAA0IWdMfHCPrTMNrVlRhCXYjFLSg bo3ADGXmDIKeScH1JWInMHGlYEUoRYwoIHPrNBBxUN WyRZIkPDEtKG2DZkQqIZGvUTG0UKwhJWUpPKQplc3UABMaNRAsILoeJgFeBFIpFVFjSGuwTGRqLSW5ZK t5ECFsHWDlSO0PWfAbOLHzQYR0AWRkVUIpJHHpth7HLVCkVIYfByX1FXTiRRQwMQWsXNeiKOYbEJG9Ll O3PBWhPJHoQY3CJxOxRQSkAFegUyGaPQWtLIFkqj1N MXNbMCXoCdThHlIgEDQdBDXaBVzuHWSpXMQ3SdUzOPThHZWdER9JXoSlKDQzVPnvKNMwJZWdBLFzta1Q PQCvAMOwXHC1EXYbVMPdZYIzLSkhDTWhHHM4WJMiIKJkVVBjMT4CCjCuDMLwYBs0VIKqGSVfSQSerh9J pGAslHwwao3KZAiEWw1SvKrnWEOqUPvbCj2wtXVhSx EcQYVCEx7ImzKjXTMbKOAARNonWMAqNGhsXvGvMUI8IYH8GWQwNBQiUECxNUOhDVntTPvuWmh5PbJ3Jm EvSxZ5UeUfAeMxAaEgZfXyLgTxS6RpXZFjHOS8AXk+LB4kEOh+Ib1Cf1XmdvM6jlZmWFs8XXTgXIpcVO VPRg0K ID Date Data Source [id number] 08/02/2020 07:03:19 AM EDT [facility] Name Value Range Interpretation Code Description Data Sumaya rce(s) Supporting Document(s) Nursing Note [facility] VSJBAa2dRdKREeDd65/SBOhlQPSjj6XxLWfbYCq8DAboIFWeH8LfFCZ2jV9lESG1QWmHNzUlVuAmMPHj lbm [file] HmHbHUV5A2WjHLObXmM5VbQnIm8qILBKRr0+CCrpiHDxcXfbLHJTZjs6BELKEyKfSP6RJVv= ID Date Data Source [id number] 08/05/2020 08:00:00 PM EDT [facility] Name Value Range Interpretation Code Description Data Sumaya rce(s) Supporting Document(s) Pancreatic Elastase, F 367 mcg/g >200 (Normal) Normal (a pplies to non-numeric results) [facility] Test Performed by:[facility] [address] [address] Director: Julio Gracia M.D. Ph.D.; CLIA# [id number] above 1 analytes were performed by [facility] ([id number]) ID Date Data Source [id number] 08/02/2020 05:52:00 PM EDT [facility] Name Value Range Interpretation Code Description Data Sumaya rce(s) Supporting Document(s) Stool WBC No WBC's Seen [facility] The above 1 analytes were performed by [facility] [id number], ,[place] [address] ID Date Data Source [id number] 08/02/2020 10:52:00 AM EDT [facility] Name Value Range Interpretation Code Description Data Sumaya rce(s) Supporting Document(s) Campylobacter Not Detected Not Detected Normal (applies to non-nume zaina results) [facility] Norovirus Not Detected Not Detected Normal (applies to non-numeric r esults) [facility] Rotavirus Not Detected Not Detected Normal (applies to non-numeric r esults) [facility] Salmonella Not Detected Not Detected Normal (applies to non-numeric r esults) [facility] Shiga Toxin 1 Not Detected Not Detected Normal (applies to non-nume zaina results) [facility] Shiga Toxin 2 Not Detected Not Detected Normal (applies to non-nume zaina results) [facility] Shigella Not Detected Not Detected Normal (applies to non-numeric r esults) [facility] Vibrio Not Detected Not Detected Normal (applies to non-numeric r esults) [facility] Y. enterocolitica Not Detected Not Detected Normal (applie s to non-numeric results) [facility] Enteric Pathogen Panel:Testing performed by reverse retail coverage merchandiser lead, PCR and array hybridization.A negative test result does not rule out the presence of diseaseThe above 9 analytes were performed by [address] [place],[facility]# [id number],[place] [address] ID Date Data Source [id number] 08/02/2020 06:26:00 AM EDT [facility] Name Value Range Interpretation Code Description Data Sumaya rce(s) Supporting Document(s) AST 16 IU/L 15-37 Normal (applies to non-numeric resul ts) [facility] Sulfasalazine and sulfapyridine have the potential to falsely depressAspartate Aminotransferase results. Baseline values before medication administration are recommended. ALT 36 IU/L 13-56 Normal (applies to non-numeric resul ts) [facility] Sulfasalazine and sulfapyridine have the potential to falsely depressAlanine Aminotransferase results. Baseline values before medication administration are recommended. Alkaline Phosphatase 135 mIU/ml 50-136 Normal (applies to n on-numeric results) [facility] Total Bilirubin 0.40 mg/dl 0.20-1.00 Normal (applies to non-numeric results) [facility] Blood Urea Nitrogen 14 mg/dl 7-18 Normal (applies to non-nume zaina results) [facility] Creatinine 0.56 mg/dl 0.51-0.95 Normal (applies to non-numeric resul ts) [facility] N-Acetylcysteine (NAC) and Metamizole lemus ve the potential to falselydepress Creatinine results. Baseline values before medication adminstration are recommended. Patients undergoing treatment with phenindione will have falselydepressed results. Patients on phenindione therapy should be tested with an alternativeCREA method.Toxic levels of acetaminophen may lead to falsely depressed results forpatient samples. Glomerular Filtration Rate >90.00 mL/min/1.73m2 [facility] GFR Reference Ranges:Normal Function or Mild Renal Disease,if clinically at risk:>or= 60Moderately decreased:30 - 59Severely decreased:15 - 29Renal Failure:<15 Please note that the MDRD equation requires an additional adjustment forAfrican-Americans (multiply the GFR result by 1.210).Glomarular Filtration Rate (GFR) is estimated based on the MDRDequation, which assumes a steady state for creatinine ([employer] Int Med 139/2 137-149, 2003), as recommended by the NationalKidney Disease Education Program in conjunction with the National Institutes of Health and the National KidneyFoundation. The [place] method used in calculating this result is traceable to IDMS standards. Glucose 213 mg/dl 70-110 Above high normal [facility] Sulfasalazine has the potential to false ly depress Glucose results. Sulfapyridine has the potential to falsely elevate Glucose results. Baseline values before medication administration are recommended. Calcium 8.6 mg/dl 8.5-10.1 Normal (applies to non-numeric resul ts) [facility] Total Protein 7.1 g/dl 6.4-8.2 Normal (applies to non-numeric re sults) [facility] Albumin 3.8 g/dl 3.4-5.0 Normal (applies to non-numeric resul ts) [facility] Sodium 136 mEq/L 136-145 Normal (applies to non-numeric resul ts) [facility] Potassium 3.9 mEq/L 3.5-5.1 Normal (applies to non-numeric resul ts) [facility] Chloride 103.0 mEq/L 98.0-107.0 Normal (applies to non-numeric resu lts) [facility] Anion Gap 10.9 [facility] Carbon Dioxide 26.0 mMol/L 21.0-32.0 Normal (applies to non-numeric results) [facility] The above 16 analytes were performed by [facility] [id number], ,[place] [address] ID Date Data Source [id number] 08/02/2020 06:13:00 AM EDT [facility] Name Value Range Interpretation Code Description Data Sumaya rce(s) Supporting Document(s) PT, No Coag Tx/Coag Tx Unk 13.1 Seconds 10.2-12.9 Above high normal [facility] Attention: Effeciive 03/16/2020 The nor mal range for PT (No Coag) has changed:Previous normal range: 10.0-11.4New normal range: 10.2-12.9PT referenence range reflects values for patients not on antic oagulanttherapy.Discrepant results may occur due to anticoagulant effects such ascoumadin, direct thrombin inhibitors; argatroban (Acova), bivalirudin(Angiomax) or dabigatran (Pradaxa) or direct factor Xa inhibitors;rivaroxaban (Xarelto), apixaban (Eliquis) and edoxaban (Savaysa). INR (No Coag Tx/Coag Tx Unk) 1.1 0.9-1.1 Nor mal (applies to non-numeric results) [facility] Suggested therapeutic INR ranges for ora l anticoagulant therapy: Indication:INRPrevention and treatment of DVT and PE2.0 - 3.0Prevention of systemic embolism with atrial fib., acute RI and 2.0 -3.0 tissue prosthetic heart valves.Prevention of systemic embolism in patients with mechanical heart2.5 -3.5 valves.NOTE: The INR is only valid for patients on stable oral anticoagulanttherapy. The above 2 analytes were performed by [facility] [id number], ,[place] [address] ID Date Data Source [id number] 08/02/2020 06:10:00 AM EDT [facility] Name Value Range Interpretation Code Description Data Sumaya rce(s) Supporting Document(s) WBC 5.06 x1000/ul 4.80-10.00 Normal (applies to non-numeric re sults) [facility] RBC 4.27 x1Mil/ul 4.20-5.40 Normal (applies to non-numeric re sults) [facility] Hemoglobin 10.6 g/dl 12.0-16.0 Below low normal [facility] Hematocrit 34.7 % 37.0-47.0 Below low normal [facility] MCV 81.3 fL 81.0-99.0 Normal (applies to non-numeric resul ts) [facility] MCH 24.8 pg 27.0-31.0 Below low normal [facility] MCHC 30.5 g/dl 32.2-37.0 Below low normal [facility] RDW 17.0 % 11.5-14.5 Above high normal [facility] Platelet Count 482 x1000/ul 130-400 Above high normal [facility] MPV 9.4 fL 9.4-12.4 Normal (applies to non-numeric resul ts) [facility] Neutrophils 60.0 % 40.0-74.0 Normal (applies to non-numeric resu lts) [facility] Lymphocytes 25.3 % 19.0-48.0 Normal (applies to non-numeric resu lts) [facility] Monocytes 10.5 % 3.4-9.0 Above high normal [facility] Eosinophils 2.6 % 0.0-7.0 Normal (applies to non-numeric resu lts) [facility] Basophils 1.2 % 0.0-2.0 Normal (applies to non-numeric resul ts) [facility] Immature Granulocytes 0.4 % 0.0-0.5 Normal (applies to non-nu meric results) [facility] Nucleated RBCs 0.00 % 0.00-0.20 Normal (applies to non-numeric r esults) [facility] Abs. Neutrophils 3.04 x1000/ul 1.92-8.31 Normal (applies to non-numeric results) [facility] Abs. Lymphocyte 1.28 x1000/ul 1.20-3.70 Normal (applies to non-n umeric results) [facility] Abs. Monocytes 0.53 x1000/ul 0.14-0.97 Normal (applies to non-nu meric results) [facility] Abs. Eosinophils 0.13 x1000/ul 0.00-0.76 Normal (applie s to non-numeric results) [facility] Abs. Basophils 0.06 x1000/ul 0.00-0.22 Normal (applies to non-n umeric results) [facility] Abs. Immature Gran. 0.02 x1000/ul 0.00-0.02 Normal (appl ies to non-numeric results) [facility] Abs. Nucleated RBCs 0.00 x1000/ul 0.00-0.02 Normal (appl ies to non-numeric results) [facility] The above 24 analytes were performed by [facility] [place] [id number], ,[place] [address] ID Date Data Source [id number] 08/01/2020 05:22:27 PM EDT [facility] Name Value Range Interpretation Code Description Data Sumaya rce(s) Supporting Document(s) Nursing Note [facility] KREGTl5fXeKOAaFa19/GWBwoJLJym9MhWKgbYEp0AChnRTEfR5OlSHI3vV7fLFV6RBmNHmDsMzJzPXGs [facility] [file] ICAgICAgICAgICAgICAgICAgICAgICAgICAgICAgIC AgICAgICAgICAgICAgICAgICAgICAgICAgICAgICAgICAgICAgICAgICAgICAgICAgICAgDQogICAgIC AgICAgICAgICAgICAgICAgICAgICAgICAgICAgICAgICAgICAgICAgICAgICAgICAgICAgICAgICAgIC AgICAgICAgICAgICAgICAgICAgICAgICAgICAgICAg ICAgDQogICAgICAgICAgICAgICAgICAgICAgICAgICAgICAgICAgICAgICAgICAgICAgICAgICAgICAg ICAgICAgICAgICAgICAgICAgICAgICAgICAgICAgICAgICAgICAgICAgICAgDQogICAgICAgICAgICAg ICAgICAgICAgICAgICAgICAgICAgICAgICAgICAgIC AgICAgICAgICAgICAgICAgICAgICAgICAgICAgICAgICAgICAgICAgICAgICAgICAgICAgICAgDQogIC AgICAgICAgICAgICAgICAgICAgICAgICAgICAgICAgICAgICAgICAgICAgICAgICAgICAgICAgICAgIC AgICAgICAgICAgICAgICAgICAgICAgICAgICAgICAg ICAgICAgDQogICAgICAgICAgICAgICAgICAgICAgICAgICAgICAgICAgICAgICAgICAgICAgICAgICAg ICAgICAgICAgICAgICAgICAgICAgICAgICAgICAgICAgICAgICAgICAgICAgICAgDQogICAgICAgICAg ICAgICAgICAgICAgICAgICAgICAgICAgICAgICAgIC AgICAgICAgICAgICAgICAgICAgICAgICAgICAgICAgICAgICAgICAgICAgICAgICAgICAgICAgICAgDQ ogICAgICAgICAgICAgICAgICAgICAgICAgICAgICAgICAgICAgICAgICAgICAgICAgICAgICAgICAgIC AgICAgICAgICAgICAgICAgICAgICAgICAgICAgICAg ICAgICAgICAgDQogICAgICAgICAgICAgICAgICAgICAgICAgICAgICAgICAgICAgICAgICAgICAgICAg ICAgICAgICAgICAgICAgICAgICAgICAgICAgICAgICAgICAgICAgICAgICAgICAgICAgDQogICAgICAg ICAgICAgICAgICAgICAgICAgICAgICAgICAgICAgIC AgICAgICAgICAgICAgICAgICAgICAgICAgICAgICAgICAgICAgICAgICAgICAgICAgICAgICAgICAgIC CkDHl3Z8kaKPHvKBZbEE9kWGi8Yk2+BJrPWyYpHFD4ynPvdX4GAD1oa5PsHCujRJIwm1MsHZd8LS8CZU BgBRozIM6RAUuzbo8FPMDhJAKctNMCh1gzGpCkPGI3 OMZuYoefXM5TRFYaZ5uxciStAHWfLEGUTA0HWqSfE9DdlL76XTLCXf1+RCqpyaUeQriUFrBhRZBiu6Tj QFx0TH3UNQXmLwems0GrMlMwZNTHUQclXQ9KBBC2DWZbVQRoKg5XCXHyM626cxGkFV7GAr3XFbYsKD5d it0QTwFnGAKcQwiJYzq3VYqbJP6KkMMgWAvIjLQrtL 1gNH5nuTRuTvueCRxvO7utFNEqxHunb217a6qhWIGSWxDfaBUzDW4rQi4nGSEsISI0GnE1PHXMNL9JMW FjYCMluXXaXDAdLYVVHY0GIYpuFUM4UpisbfIkyEYjCGqxPX8HLWElemGcHgRqKWPGCXr+Tk3RHC5zp7 XhWEmdXDSrBA7bkx0SYPnTGmCsP1A7mJCxG7G5JUlq Lw3ZLBBwGTOdZyGlYNULQTiyRN9QIS7sjrX9VR6ShSRcYCJzEOIyoFUbSWa6C10ksTBaYKhkAB3LXMT+ Savannah+Tn4EOLIbXTIpCUYtQzWbPUHZJkWfP8WkD3ECa7WbR8TeLT07oXtpcvWmCUooMN3LYX8pXDBcXPKG TI6EyJFomA2pahZtNcGvNMUJCjJnH68mqCLjWJKeEM CyLVRmUg5SCXAwG1OthfGpqVscjgRxQCQeTMYOEW7BZJsghmAurIEuqEgiQX40oPboPA7EHz5EWxWrHU 5chj4AuPCpYb9ZANHdVB9BQGMfIKTmFVMsNUH6WWLvJcAtXArcHVTiMOOwEIM7NUQzTEPmKG7COcAnGF KiUbDwGiZaZWQuQGGoar2OWSHmNTQvGGa1NFIkOQUb OQNoHErlUYImTAIfBAM9UYRfZSInJS3YPxFhIQXrAPP5OxkdGLNvZWDevx1UWQReJADdOct0ExRdXGEl CYCxIBxmWMHvMAPgDnQwLNBfDFOyQB8KUtSiBMIkRAD1JaFxVNQeAQEgze3XDNXaJTGsPIPhMrLbICLy GMSuHUkeNSGdAPF9QJf8ENDdCWUlAG7SHqNeMKLrWK YpFrWtHBYyZPAqbi9ONAVrLBLkNRX9NUUxLNKeSITpDCxvQUPyAIB4AYQmOTCzAHGuRZ0VKkOqWUBtXO koGUmmFFBmRBIkbr7FRYDbTZVkGUDjKDArCEStKJYySCvoOQEwFEE0JQW5ZWVoXNGmHQ0BLsPdHIZtUM w3TAUyOYCoTVQgfb9HXYDkIAJaXUG5CwBdFJBcKPRx SNjtAUVaGFI5VDQeYCUzNKVdFX3CNdGtLWAaBpIrAAYoVPNmDANifr2UTKXlATIcVGPfNAUvIBWsWKEt EDyqBRIjIRCfFKY5XFWeWRMxMF8GUnVnXMTkEzH0GrfpPYJdCUPyhj9RKJSiHUOnXqE6VUUqUVDiLGKt OYv1llNekUGpDEr2HL2PZ4TzciAwWzPVZo1Ih454UN U0JATqTi6CF3foMz3wICKkPADYXj4YUNf0LncaOcBcAPI6DMH0SOF9MCM4UMh9OJJbTjBpYSAgMFI+ID e3LnLmEQXiVUj8GcWdYzA4QLU2XQfeGjRtASO6AzX6Jl0vDIBNUp4+SThrrBNtoGjdEDILYoCdWsQ8CN khFQGSGd9S ID Date Data Source [id number] 08/01/2020 05:19:31 PM EDT [facility] Name Value Range Interpretation Code Description Data [employer] rce(s) Supporting Document(s) Care Plan [facility] TAWBYi1mVbBSRiYt80/PWUtqUXSut8YqGCurRBs4MYudFFFcY2AzCCA6mD2yURN3AIjYUyHxUaJgVDLp lbm [file] ICAgICAgICAgICAgICAgICAgICAgICAgICAgICAgIC AgICAgICAgICAgICAgICAgICAgICAgDQogICAgICAgICAgICAgICAgICAgICAgICAgICAgICAgICAgIC AgICAgICAgICAgICAgICAgICAgICAgICAgICAgICAgICAgICAgICAgICAgICAgICAgICAgICAgICAgIC AgICAgDQogICAgICAgICAgICAgICAgICAgICAgICAg ICAgICAgICAgICAgICAgICAgICAgICAgICAgICAgICAgICAgICAgICAgICAgICAgICAgICAgICAgICAg ICAgICAgICAgICAgICAgDQogICAgICAgICAgICAgICAgICAgICAgICAgICAgICAgICAgICAgICAgICAg ICAgICAgICAgICAgICAgICAgICAgICAgICAgICAgIC AgICAgICAgICAgICAgICAgICAgICAgICAgDQogICAgICAgICAgICAgICAgICAgICAgICAgICAgICAgIC AgICAgICAgICAgICAgICAgICAgICAgICAgICAgICAgICAgICAgICAgICAgICAgICAgICAgICAgICAgIC AgICAgICAgDQogICAgICAgICAgICAgICAgICAgICAg ICAgICAgICAgICAgICAgICAgICAgICAgICAgICAgICAgICAgICAgICAgICAgICAgICAgICAgICAgICAg ICAgICAgICAgICAgICAgICAgDQogICAgICAgICAgICAgICAgICAgICAgICAgICAgICAgICAgICAgICAg ICAgICAgICAgICAgICAgICAgICAgICAgICAgICAgIC AgICAgICAgICAgICAgICAgICAgICAgICAgICAgDQogICAgICAgICAgICAgICAgICAgICAgICAgICAgIC AgICAgICAgICAgICAgICAgICAgICAgICAgICAgICAgICAgICAgICAgICAgICAgICAgICAgICAgICAgIC AgICAgICAgICAgDQogICAgICAgICAgICAgICAgICAg ICAgICAgICAgICAgICAgICAgICAgICAgICAgICAgICAgICAgICAgICAgICAgICAgICAgICAgICAgICAg ICAgICAgICAgICAgICAgICAgICAgDQogICAgICAgICAgICAgICAgICAgICAgICAgICAgICAgICAgICAg ICAgICAgICAgICAgICAgICAgICAgICAgICAgICAgIC YxVSUqMRYfLEXuCMEcIWIwBYZaQDHxANJyFCIlFCXiOTd3D4drTZEpHGKmWZ1kFTr7Ks2+DQoNCmVuZH Y0dzAutC3AUT8fa0CeUUfyARSvy7PkHMl3OM6BNNYaCPvaCP5VZPgknr9MYKLoFEGvvIWDu0kkChSbHS A1XUDzClzoLR3BPGDtZ7wdatCuFQHsETTBMF9SEfDd U4FbvJ67GFHCWh0+ADmsmmUkFknIEbR4NAKsz2CuIKw8QN0HAJOuAreui6XuAjOfNDSJWZwfWP0KIBR0 XTL2CKCnSx1XCARoT325osEcKR5YLv8VBoGsRI3uxc3PLyRnCPCbWuoOPdd9NEyeWN4CkRDrCGcIXESf UZLvZJ3cNvacZAnjE1tjIQRhnYssk922b5qpARMVGe RykRJlJU4oRy6rGWXbTMU9TcP1IIFWFS3QAYTlNNEtoQUnBNEcSCTCFT3TWZtcJZT6CucjzlHydBBfJA qwTP5TXTAxpwFrLnNuQXYWYBa+Bq0JHU9ry4GmWOoeUpYjDQ0hvj9BCFiEKrIwJ3P3eXVoQ8Q4MElnFe 1BZOKlXVVfXpKfHLAFIXckMK5QHX2lnaX6GM2ReLPw UHDxPCFcyDGmFCw3X45xkQElIPljWO4CRGN+Savannah+Gb9HPHShOQIaFVJiLuOpPXDFGnOxX2RtI6TCe4Wb T1ZvSC62rHlgupLpZXekND8SWV8iYCMqZJGWEE7FuVKohN0onmAkBROaTFYUBqSiG98foJPeRRHhXJK0 BCKrTj0DOWKxG6EgcnYmaWminkLzOPCxILRLOV8MZA eoahMxcYGjoKgmDW68oLcrVF6KKp8PWuWpLZ9lvj5KiOCtVu5IAQEkEP0VVIOgODGoBOMxKQO3XCBaOu HvMCklOBTpRRTuIGS1XWMsTXMmPA5MVjUlSVSvGoO0INVvAKPyDFHehu6RAZKiLZOvApW6ZCXxYNVlNV OkBRraKKXaKAWuJOD3KIBrIWDnLO7BKhJiPWIaEXP9 NOGqWKMrYQGncx4NMRJuBQFsPxrjEFVeUWPhFYTyBXomIRMrJCIoQDlkXEBuUSMkKD8TJyZmKJVpZNQd BsBmRSKlRDAsgx4OEBGtQMPoLET1QXEaYYYoMJFuRHywVFFeJDP5PkE3UNToUYOhIE7JBmUwLXOyVLQ5 LJArMPUvGCSrel5ZSKIwXPQtNEI8LlGeCPTfAVUxYQ tpGFQoOQJ6JPK1SYObSNLpLM7JQnYfBIWrKSrwEgUrVOGrBEZkwx8YGGWdWLGgJRC8JUUhBDLhLNDtCB gyFHKcMHJ9KkPdTWDjDMVkAU3TBtYhHOAjRCk2RMitNTGoXWAoeq2YFPPwYINzJCn6WPBsBYVzIQCxKI gtCNJoEMK6GZj1OIHmJXXtSH8HBsPuZRExBvFsICGy FJPmLCTczv0BMRXaWJWzRTSvBYRfUECfMTJnRYugXEUcSWSrVoWiGZPrABTePG4EVmWyFNGvMaY6JOUo DMAdCNKcxp2FEUQlGXUoPTkoIFEhMJGfGCPlAWmsQCJlEPNdLsBtAYIzUTXzAZ0OIaBySHOrQsS2IfQy PACpTJZmpd5BXQWvJYZaOvW0AmWfEEEoHDJjEUz2hu UdmWZpBOd4PH4LB1QaliMxGohIFr9Rx536MQJ4YIKiKr6BD3bzTn4aROUbGNKVBx2YDOg5PME1DDK1T2 KsSjkjKCNtBFUnOUTwDEz8KlX2QjTkPHS+MYl8SUmxPObmQsQrALViMTF8JeXdYsG4SHNqKPl8LPKgWs 8sRFFOVs4+YTvutQPukLqoJHXMNwDaBCS0AEjgOYFZRv2X ID Date Data Source [id number] 08/01/2020 03:11:28 PM EDT [facility] Name Value Range Interpretation Code Description Data Sumaya rce(s) Supporting Document(s) Consults [facility] KISDVt1bWhPEGdMd19/MSLgnKQDgc2JjIJcwXEf6LLqoILCrY0EoUON8fU6wDTG3ZToMZyVbRpEoQPMh lbm [file] NQE8JXHw== ID Date Data Source [id number] 08/01/2020 03:29:00 PM EDT [facility] Name Value Range Interpretation Code Description Data Sumaya rce(s) Supporting Document(s) SARS-CoV-2, PCR Negative Negative Normal (applies to non-numeric results) [facility] The [place] FDA has made th is test available under anemergency access mechanism called an Emergency Use Authorization (EUA).The EUA is supported by the [employer] of Health and HumanService's(HHS's) declaration that circumstances exist to justify the emergencyuse of in vitro diagnostics (IVDs) for the detection and/or diagnosis ofthe virus that causes COVID-19. First Test Unknown [facility] Employed in healthcare No [facility] Symptomatic as defined by CDC No [facility] Hospitalized [facility] Resident in a congregate care setting No [facility] No [facility] Intensive Care No [facility] The above 8 analytes were performed by [facility] [id number], ,[place] [address] ID Date Data Source [id number] 08/01/2020 12:09:53 PM EDT [facility] Name Value Range Interpretation Code Description Data Sumaya rce(s) Supporting Document(s) Progress Notes [facility] QDHAEd8dPpFFZgQz00/DDGqtWKQyb0LcLLunFSb9JBwwPRUiX4ZxVGE3wO4uCQA6VJqWIaBsEcYyYISp lbm [file] ogICAgICAgICAgICAgICAgICAgICAgICAgICAgICAgICAgICAgICAgICAgICAgICAgICAgICAgICAgIC AgICAgICAgICAgICAgICAgICAgICAgICAgICAgICAgICAgICAgICAgDQogICAgICAgICAgICAgICAgIC AgICAgICAgICAgICAgICAgICAgICAgICAgICAgICAg ICAgICAgICAgICAgICAgICAgICAgICAgICAgICAgICAgICAgICAgICAgICAgICAgICAgDQogICAgICAg ICAgICAgICAgICAgICAgICAgICAgICAgICAgICAgICAgICAgICAgICAgICAgICAgICAgICAgICAgICAg ICAgICAgICAgICAgICAgICAgICAgICAgICAgICAgIC AgDQogICAgICAgICAgICAgICAgICAgICAgICAgICAgICAgICAgICAgICAgICAgICAgICAgICAgICAgIC AgICAgICAgICAgICAgICAgICAgICAgICAgICAgICAgICAgICAgICAgICAgDQogICAgICAgICAgICAgIC AgICAgICAgICAgICAgICAgICAgICAgICAgICAgICAg ICAgICAgICAgICAgICAgICAgICAgICAgICAgICAgICAgICAgICAgICAgICAgICAgICAgICAgDQogICAg ICAgICAgICAgICAgICAgICAgICAgICAgICAgICAgICAgICAgICAgICAgICAgICAgICAgICAgICAgICAg ICAgICAgICAgICAgICAgICAgICAgICAgICAgICAgIC AgICAgDQogICAgICAgICAgICAgICAgICAgICAgICAgICAgICAgICAgICAgICAgICAgICAgICAgICAgIC AgICAgICAgICAgICAgICAgICAgICAgICAgICAgICAgICAgICAgICAgICAgICAgDQogICAgICAgICAgIC AgICAgICAgICAgICAgICAgICAgICAgICAgICAgICAg ICAgICAgICAgICAgICAgICAgICAgICAgICAgICAgICAgICAgICAgICAgICAgICAgICAgICAgICAgDQog ICAgICAgICAgICAgICAgICAgICAgICAgICAgICAgICAgICAgICAgICAgICAgICAgICAgICAgICAgICAg ICAgICAgICAgICAgICAgICAgICAgICAgICAgICAgIC AgICAgICAgDQogICAgICAgICAgICAgICAgICAgICAgICAgICAgICAgICAgICAgICAgICAgICAgICAgIC SsZIWdVXQnWZVmRPAmXGCuVJWkIORlCIHdNTJpSHMqJJXtCNEkBKOfRVTyEMVxEVGqUSo6I9piRJSjXV JsFD9lUEt8As3+KLdDOqVaBYM9mkProO8YYQ2tm1Sc FKddFGBpe9RiNVt7XP9KZOZiAPnaXK9VYHftro2AWOItGDBqpBEIm9ocXdFgUVU9BZJkXphzAB7HLPQy S3qkrrPzNFLbRAKWQHtbGFBKQKwwXVEPLY2DOnCkT5TdzA10GIPMPe8+RRzkaiNtJvwNGiY5HRDnd4Og CLj0WT7SBKFwUzyho1HiJDDwXHJDRGdfGK5VZQN4QL X3TBCoNg6IQRVwZ474pkDbVK0YEb0RTsIlKB0oup0LHQXoWDNcAhkAMjx1WWhsNK6VsTNwNXxRsl5spw WbjoTOq5MivsOfeCTRaYBeu0RmwhTpJWNRBFtewbPrASUEFNAOOC4kYMZoWEMeNAFtSdSvVNUxQgdoGR MAPPnTJxCpT0Tsh8LhIlE2HAIaGoIeWKjbYMDqHjA0 DX73xFktNL4ZOEIdNGBxZN44BYA2ZGZeZc5XDn0KKaTgWV0lci1JJQmqGGJsTmrUQis8WJwbGR9EyUFl Q0QzdCVkg7xZQpSvW9ONFAAoOOAzKw0JEJKnXmMaROOwVCquST7pOWHfFNULvWxfieM2DT7IXA1oigMs NX8YXrFxXy5bNh6HDhHdO4RyD3VtOIDzKGFKYTmwVP 2RDJwuTG3fYF5Ep6FVeNWypW8toc7FIHWfOXWvMgspqy1SUaulM0G1eSqkHIQkGDErZCILSMdxIY2MEM RiIMN1WJT3ABMqMZSDZiOoJ73tGK4WC0Wbx45dWwQ2SNRuUgTvEJeqMR75vKuhrnQetWWfbNcoVF4XRu 4+DQplbmRvYmoNCnhyZWYNCjAgNDgNCjAwMDAwMDAw PXDyReT3BlDfCg0MFILuPQJvHKTkRoZmAITfGOXnGKvtBSHpASA1Leg7SDZkBKWhTD5RWfYqGXUxGNW2 LXDqUWDyOQMzdz7AVOYcJECaWOR4ReVbYXVmMYReSEbmKWHkQRLtPAT4BRNbNKWlIX2DZwAvJBPwQCPc JOerARCeOSGkct8ETBMkRUPnDRL2VHWvUDXpCZIgPI vkYZHtFNZ2HoxtDXRmWFWwEI7MWnPnEIUyCHkzEVSlWZXsGASrqy1MACNaFDXaTSL5TRGpWTQcYEVmFM hxZRNlJCL9MDQwGGXoJTLwEP4PGcLqJSFtGJs2TQBxUCLnXSNbdf9DQZLuOKUgVTfxPbRnQVDrTVQdDB tuCJNcRFVjGpkaLWOhPCYrUA2WNoYdVQTtBQA7NVFr ODIyGJMoby7XKBUnUGMqWXZ7FlQtHUJqFGUxWZbyZUKnFEOsPDNaFNNhDOGdER9ITnCxRBJyOaU3Rohv JGUvVYDekr0UPRVfVHOtARF1MiHkZVBqDGQxQVlfUEElMGL3Jfk1HNJgXEQaRW1HUaFpRAUcHuJ7HlKo HRRdUOZfev3FGAQwBMBoUHI7UiXyWIEqERWaUYhiYE DhRCV6LWG5PFVeIKGsOW8MQeHmIGXyQwE2VSRjTNKlYJYxoo5QPBBfRTGqPbR6KqJtANQsQRDwRYkoTJ NiLKU1LIjqWFKpXPSbFB1QCbJuHJJxTodxQWXlLTPbLDXdlg9NQRMpXVRvLco9ZdPyITLfVZSeKJppLD YeQZS4FEzwRYXdPWAeOU1CTvKhRTBiSkkiHQCqRDOs DTUscy0FGXNzLFR4CLN8IKOkRGGcHXHxVLdcHLUqCQIuPEl3WIStOAGpOA8QMeIiGKMeNSWvPCroKXHr IDPpsh8ZZKQdADW8IvL3ZOCiCMPiDRArNMzrODJhDEEmBPf9DICqMGJtSE6XIbLgGBYwUTm7OODoWZNk KGFkfa0TJOEuCPW6Cnd9HbSuFCMpJFEmYVusHXWkJN Z0PMe5TCLrEMXkOZ2XIhSvMSEmBLcvRCYeHEJrARDypj3VNHKzYDB0FIY4PWJgWUUdZAYdZGvmJDJcBG Q2SaIhNKZsKCIwUC7OGaRsHFXgQZi3DIQbJMKsPKHpxu6LGQNlBGE3PXG2ENJkNXHjHDSuDXgtYYDyMD CcUUjpISKqWSWtYM1KAwZwTLIrTOH3SeJfEPKqIJPz sb8RNSFvKAN4LEA6YqCvODLgZNYcXTwfMONoINOzIKVwYANkSVLwHI4EVtQpHDytIJGTAbm8XActC0h0 GQU9TU6OH2Iqf3ViGKntBWGPELqkTG8ykmAoUGFqKz9HR5eTCkpqSIahWvM9LHDiW8SlOOE2MwTeEbY3 CRJaCSOiVXToJQ0sRJYtN3EzBVP9X2GeBFY8CtAyZv ZdCbpfU6NfOTOcNZK1JnMgPI0TYk6ZEbN2UWM4kVCfGh2MADEoCHWGScUxVT9WKOf= ID Date Data Source [id number] 08/01/2020 11:00:40 AM EDT [facility] Name Value Range Interpretation Code Description Data Sumaya rce(s) Supporting Document(s) Progress Notes [facility] KOXCRn1hWoEAMzRb05/FNErrGHMgl0YqVQngDZv4KZhhJRIcD5WsFLM7qM7eEDX9RIeUAqTcRmUoBHYx lbm [file] FbZA9HKx4LGuC4VNP5eAAdNc4NJdB5TSLBYwJkBC7DRPk= ID Date Data Source [id number] 08/01/2020 11:35:00 AM EDT [facility] Name Value Range Interpretation Code Description Data Sumaya rce(s) Supporting Document(s) Amylase 56 IU/L 25-115 Normal (applies to non-numeric resul ts) [facility] The above 1 analytes were performed by [facility] [id number] [place] [address] [address], ,[place] [address] ID Date Data Source [id number] 08/01/2020 11:35:00 AM EDT [facility] Name Value Range Interpretation Code Description Data Sumaya rce(s) Supporting Document(s) Lipase 136 IU/L 73-393 Normal (applies to non-numeric resul ts) [facility] The above 1 analytes were performed by [facility] [id number], ,[place] [address] ID Date Data Source [id number] 08/01/2020 08:29:00 AM EDT [facility] Name Value Range Interpretation Code Description Data Sumaya rce(s) Supporting Document(s) Prolactin 5.1 ng/ml [facility] Prolactin Expected Ranges:Female:Non-pre gnant2.8 - 29.2ng/mL9.7 - 208.5ng/mLPost-menopausal1.8 - 20.3ng/mLThe above [address] [facility] [facility] [id number], ,[place] [address] ID Date Data Source [id number] 08/01/2020 07:47:08 AM EDT [facility] Name Value Range Interpretation Code Description Data Sumaya rce(s) Supporting Document(s) Nursing Note [facility] XPEJCj6oReJDIdXz67/PKOhfJLVpb4QeXTyxUOf3NXroPXOcX1FqUIX5uR1pBBF4ICeHLuTcCtAwDFWc [facility] [file] g1RVF7FKJ6ORJpGxM3UbUjDK2XOm6BMcJ8SXV1lMUbLn6SZgNcLcHBJcCeBR0SSOl= ID Date Data Source [id number] 08/01/2020 04:34:36 AM EDT [facility] Name Value Range Interpretation Code Description Data Sumaya rce(s) Supporting Document(s) Nursing Note [facility] LTUMQz7oQlHXTxCt21/UUBexZIRif4CgHMkdPPa9QVdbHMJcG4HeLIC2sH2uZEO0TYfGUaOxJtVfDDXb lbm [file] AwMzUwNyAwMDAwMCBuDQowMDAwMDAzNjkyIDAwMDAw CA9JKlTtJMKpEER2BWPrJVHjSFTqtw2XUICuTMJuHBz4GWKwMERnBGRfOOcnAWJuGVG3RQNaQWXkBWHn FG2FVmEjXCBaVSxfYyqxQYOtAYKbbu0XTSPlJDMuFwG5YSFiHGZmCFQsWBibJZKaYAH1TAT8RTNgOZAh KP0SFaRnMFIxETwoXQYwLYQzMWWvpj0RQCFbXQXeDR R3ZKXwNQVyNEHtONnlFWKnPWL6PhMzOMUaXTHwUU2MGwPsMLVaVMs4WYorOIWcKHDwqw7XCPSjRUTlCU K6RJVeRDDrFITgMCqgBLEpVNFzXQE8KTSrPEWyTL4AMjMiKYWjKuP0NZYcAJRmXYFofa0GHVHzUGSdQU RsBJWtMNOnVCQvFAuvPZQrABKeHgZ9BTGeTORrVY3B QzSlILheRGMIXge3ROomG4v8IPCwFO2QW0Een9LnXvSsQMFANCvsAQ7clrCbFBNaIn5KJ2cORhigLjnl WNF3PuF3KGu3QdL2IgunUelsTBUoNXTpHDbwVZ5bAHR4SXL2Qcw0IXy9ZVqsZDuoFUCbZ4U0UDQ7SZZ0 R7YpVjWzEQ8VMx8CKvA9CKW2hCMaAy3JGcQ9EGGLVyPsQX9WQCs= ID Date Data Source [id number] 08/01/2020 01:56:53 AM EDT [facility] Name Value Range Interpretation Code Description Data Sumaya rce(s) Supporting Document(s) Care Plan [facility] YETRSe3yMjXTDzXq22/OMQwvOUSfw7EzKNcxFKj5DHxuBQTfI3VlBYW1vK4fKFP1LHfPCsMnHvBgONEs lbm [file] MjMgMCBvYmoNCltdDQplbmRvYmoNCjIgMCBvYmoNCj x8GRdlZP6Frc7hJ2Q0MYguWVZSL3ChjDLnUF6xD0PDH3niCRtdPq3HMzZrY0LbycZpWClbY4PxDPsbXV BPOQcjATDiK7ElWLMwITVeCb5KZGWjTU5CEyRzBnJtIOKSYxWhSUYvVxWaFNkxWVROXKssRPSbX5S0IA IyIDAgUj4+NJoqFE4KG3JkIOX4IMn1HX6+SXedJK2M bJCHE2OvfZVaRQccG8JTFS6RHRY8JF2SbWYdGG6OuHYAN8NmsUArCv5yHOSsj5JrGj8kV1XYPINATNEf MJgtFNnmXWPkMUv8L6Z9UHZaF8RGS486kPIgjAg1Ny7bC9JHCWfVDmUcBPmlIDfzFYCiPNw6F9R1ZTNs E9SOY3TtHlRfcmMnG2A+YoUrUTBJWH4HKUQPUHw1M1 J7tWXkB2S0qLzTuPZ9XC6UWA8KdXWcjYLdd91+NlKKGsHjO3MCZ0MJPV3YQRk9M5S9tIYaB7K4wQxSaC I4PZ2DVC4EhByzfLIqZw5dINxlNYH+Az5FWl0UOpIkAY0mdr5RZvLrCUPhTwoVLyw4E2sebsa7pIMtLk M5G6K4SvD9aKSlAR3NQ8Y1mPAuFDL0MTPjlCM+Pg0K m6HrPMMgUEi5O6gtTXMwZJQoWaQnfD15W++3ishhwKJ7F6a3RMCVkARqiGjThwHaF8fUHRX3i8Y4WRz/ Xs7ABWC3hOy6fPKgKVLsKKq9zZ4ojFz3YnIcAV69XISzOZmltN7wVce2J7Nwg2ObSd6dYj1miXNxRp2M FjLpJEH9pfSaNkGPOlV7hAcwvtzdGZC7Q0j6fVM0Tw 72d5tcbdNxb4FqNbK8VOlbUEEsAmQikfCrFWK0fdFwwX1vhvIyJa2YAGJxFXczyxElCcYZGu5SVwNePY 46QfpjiY6muRT+DQogICAgICAgICAgICAgICAgICAgICAgICAgICAgICAgICAgICAgICAgICAgICAgIC AgICAgICAgICAgICAgICAgICAgICAgICAgICAgICAg ICAgICAgICAgICAgICAgICAgICAgDQogICAgICAgICAgICAgICAgICAgICAgICAgICAgICAgICAgICAg ICAgICAgICAgICAgICAgICAgICAgICAgICAgICAgICAgICAgICAgICAgICAgICAgICAgICAgICAgICAg ICAgDQogICAgICAgICAgICAgICAgICAgICAgICAgIC AgICAgICAgICAgICAgICAgICAgICAgICAgICAgICAgICAgICAgICAgICAgICAgICAgICAgICAgICAgIC AgICAgICAgICAgICAgDQogICAgICAgICAgICAgICAgICAgICAgICAgICAgICAgICAgICAgICAgICAgIC AgICAgICAgICAgICAgICAgICAgICAgICAgICAgICAg ICAgICAgICAgICAgICAgICAgICAgICAgDQogICAgICAgICAgICAgICAgICAgICAgICAgICAgICAgICAg ICAgICAgICAgICAgICAgICAgICAgICAgICAgICAgICAgICAgICAgICAgICAgICAgICAgICAgICAgICAg ICAgICAgDQogICAgICAgICAgICAgICAgICAgICAgIC AgICAgICAgICAgICAgICAgICAgICAgICAgICAgICAgICAgICAgICAgICAgICAgICAgICAgICAgICAgIC AgICAgICAgICAgICAgICAgDQogICAgICAgICAgICAgICAgICAgICAgICAgICAgICAgICAgICAgICAgIC AgICAgICAgICAgICAgICAgICAgICAgICAgICAgICAg ICAgICAgICAgICAgICAgICAgICAgICAgICAgDQogICAgICAgICAgICAgICAgICAgICAgICAgICAgICAg ICAgICAgICAgICAgICAgICAgICAgICAgICAgICAgICAgICAgICAgICAgICAgICAgICAgICAgICAgICAg ICAgICAgICAgDQogICAgICAgICAgICAgICAgICAgIC AgICAgICAgICAgICAgICAgICAgICAgICAgICAgICAgICAgICAgICAgICAgICAgICAgICAgICAgICAgIC AgICAgICAgICAgICAgICAgICAgDQogICAgICAgICAgICAgICAgICAgICAgICAgICAgICAgICAgICAgIC AgICAgICAgICAgICAgICAgICAgICAgICAgICAgICAg HOGpCBIgFIKwARXjIMDhBMQtQBLlKYXgBIIcTBVdPKw4O5ucMHGuXKVcQE9rBJc7Nv6+DQoNCmVuZHN0 wlMadF4DYT8wo9KoKJanSROud3ZmQBj6QN0DCBHiPKcwPI2DAZckkc2KZPKtYFOjhFEEh3eiYyHtXXA0 RMTlQsbdUN0VLOScH4wkkzUbMGTbRDNKNS2BInEqP0 ItvQ35WSXACe9+KEzsopUsDefABiI1FOFqh8YqDVi3VK1OPQHbWkslg4JbKnWkIZCCVVbfEQ3ZWAO2GG R6CLQoNl2SBESsZ807ebPiGS9QMv1ZUiIqWV5otm5YQnHyZAMdOihICrq7GQywFZ0VzHGuKJvIIIUcIO XfXK5zVjibQ3CaA3K4GJhhlkXtKE5GZKBaIVCSBxUy cLXpKS9tZm4iFHDkJVFeApY5EHFTFQ8KFVGgFZYuzHUsQGLwKWSEXD4URKmwZZZ7ZlbnzgThzYSlMVjh LT3ZNQGndiOtAyJtIMWTPNd+Ai6MSC3br1ZgODvnHrZzEZ7gxv0ZLIvIMxApR4O3pFBrN2D4FYdwRw0L VAYuJGIgGwUaDGDRFYmuFR4DFN3mnrW9FV1KdWRyAG UuRLUweBKqFFf7Y08ggUHmWLuoAS5NXJV+Savannah+Vz3OUUHzDDGsTWRzJuJjYOASFfVsD8LjS9MXx1SgQ8 ZxTV95xDefwgTgQLmyJN7ZUK3bUSBtVUIWWG3AmMRqkU8hiiMjEJTuEAITQuAwZ96dePKhXHXpTBE2MN MzOk1KIUIuC2UnbiTxtJmexlFhSYXwOELRMU5OCVqx zoPqqTApnAbaRQ82dZemXN4WDl7VXeGfXC8gsp6MdRNxWz6HMLJgTB7CEBPrGDWrHIEsFND6WDPvUmJz RQbdAJEnUOXePXE5AVGvCKOmOF2OCvXtKZLjFoY2RKZwHDGgRNLuhm9ZKROoTRQfEkJ6VbUqHZTaNAQk VJwpCNWoCXXzAHF7AZKaYTEtCQ1OOqCyFVDqBUF2YZ FiBOHoOVHpdn9IDUQuJZCtMiG7ToRwELViFJYjHWgsXQOcXQFlZGP9MMLwSVDmQM6PJlCfMJEmNVPmSP RiXWWhGVMmqn4CKXTePTNbGrHtFLPnQVTnMFKwERhbFGOpFYU2UBI2LBSfZEEoSU6YQeEpYNZpTXW3LB EbHSUgIYIxli0KJAZiFVHwZBewZYDbWWWvVDNpGCyh BOVqEHU4UHq0OADqWGRfPV9YNxFgLBUyVNx8ETZjHREcRQVjgn9SYHRsRQSsSyotBvRyUKQbQNYnLRvz CEUuFWV1JJEhLJNyFQAmOT4YRoFbVFTsNKvsCXguTYXxALQevq5RQJZqWIVzDTY4JYCsYYExQBKhMDpt GVWcAXD1FpY4SVCkJOByGS3FKnVhRDZaTDb5FqUpFY OsDZLkbq7VOCUqDBBsJTB1LdVcBGYpPGMyCNttUCToXGXnBGNtFYTlHMCuDS6VTwVhSLFiEiK4VqIcXA FkSMTnfo2MJHMuWDLaZDO6PcElPGHoLORnYAqzBULlKHVhSTw5YETnSPJvVA0GSlEwYCGaNwQ5UuCvVZ AeRYFhly1PFHAcPDQpPjqyUOOoZSEyBIFjKHu9ngYo gIGxKRb5HQ2YE2VvmeXbSlvOCl2Pm764BEB2OOTlIl8JB4ygRg9iDARvKGXCNd1UNYu2ArbzSROcTzS2 RBJ7YbEiQCTjXQPjQChgSRSeLAC0FXI+MSprSER2ZAVoNIF3Yjc0HLNpZCY4K6CuXLK2GHBwWjixUp3d XSANCj4+TYpjjBXnsFmyKPJYShSaBQR5JHjrICRMPg4P ID Date Data Source [id number] 07/31/2020 11:12:00 PM EDT [facility] Name Value Range Interpretation Code Description Data Sumaya rce(s) Supporting Document(s) Blood Urea Nitrogen 10 mg/dl 7-18 Normal (applies to non-nume zaina results) [facility] Creatinine 0.58 mg/dl 0.51-0.95 Normal (applies to non-numeric resul ts) [facility] N-Acetylcysteine (NAC) and Metamizole lemus ve the potential to falselydepress Creatinine results. Baseline values before medication adminstration are recommended. Patients undergoing treatment with phenindione will have falselydepressed results. Patients on phenindione therapy should be tested with an alternativeCREA method.Toxic levels of acetaminophen may lead to falsely depressed results forpatient samples. Glomerular Filtration Rate >90.00 mL/min/1.73m2 [facility] GFR Reference Ranges:Normal Function or Mild Renal Disease,if clinically at risk:>or= 60Moderately decreased:30 - 59Severely decreased:15 - 29Renal Failure:<15 Please note that the MDRD equation requires an additional adjustment forAfrican-Americans (multiply the GFR result by 1.210).Glomarular Filtration Rate (GFR) is estimated based on the MDRDequation, which assumes a steady state for creatinine ([employer] Int Med 139/2 137-149, 2003), as recommended by the NationalKidney Disease Education Program in conjunction with the National Institutes of Health and the National KidneyFoundation. The [place] method used in calculating this result is traceable to IDMS standards. Glucose 129 mg/dl 70-110 Above high normal [facility] Sulfasalazine has the potential to false ly depress Glucose results. Sulfapyridine has the potential to falsely elevate Glucose results. Baseline values before medication administration are recommended. Calcium 8.6 mg/dl 8.5-10.1 Normal (applies to non-numeric resul ts) [facility] Sodium 140 mEq/L 136-145 Normal (applies to non-numeric resul ts) [facility] Potassium 3.9 mEq/L 3.5-5.1 Normal (applies to non-numeric resul ts) [facility] Chloride 108.0 mEq/L 98.0-107.0 Above high normal [facility] Anion Gap 8.9 [facility] Carbon Dioxide 27.0 mMol/L 21.0-32.0 Normal (applies to non-numeric results) [facility] The above 10 analytes were performed by [facility]'s [id number], ,[place] [address] ID Date Data Source [id number] 07/31/2020 10:55:00 PM EDT [facility] Name Value Range Interpretation Code Description Data Sumaya rce(s) Supporting Document(s) WBC 6.08 x1000/ul 4.80-10.00 Normal (applies to non-numeric re sults) [facility] RBC 3.67 x1Mil/ul 4.20-5.40 Below low normal [facility] Hemoglobin 8.8 g/dl 12.0-16.0 Below low normal [facility] Hematocrit 30.7 % 37.0-47.0 Below low normal [facility] MCV 83.7 fL 81.0-99.0 Normal (applies to non-numeric resul ts) [facility] MCH 24.0 pg 27.0-31.0 Below low normal [facility] MCHC 28.7 g/dl 32.2-37.0 Below low normal [facility] RDW 17.6 % 11.5-14.5 Above high normal [facility] Platelet Count 466 x1000/ul 130-400 Above high normal [facility] MPV 9.5 fL 9.4-12.4 Normal (applies to non-numeric resul ts) [facility] Neutrophils 64.4 % 40.0-74.0 Normal (applies to non-numeric resu lts) [facility] Lymphocytes 25.0 % 19.0-48.0 Normal (applies to non-numeric resu lts) [facility] Monocytes 7.6 % 3.4-9.0 Normal (applies to non-numeric resul ts) [facility] Eosinophils 1.5 % 0.0-7.0 Normal (applies to non-numeric resu lts) [facility] Basophils 1.0 % 0.0-2.0 Normal (applies to non-numeric resul ts) [facility] Immature Granulocytes 0.5 % 0.0-0.5 Normal (applies to non-nu meric results) [facility] Nucleated RBCs 0.00 % 0.00-0.20 Normal (applies to non-numeric r esults) [facility] Abs. Neutrophils 3.92 x1000/ul 1.92-8.31 Normal (applies to non-numeric results) [facility] Abs. Lymphocyte 1.52 x1000/ul 1.20-3.70 Normal (applies to non-n umeric results) [facility] Abs. Monocytes 0.46 x1000/ul 0.14-0.97 Normal (applies to non-nu meric results) [facility] Abs. Eosinophils 0.09 x1000/ul 0.00-0.76 Normal (applie s to non-numeric results) [facility] Abs. Basophils 0.06 x1000/ul 0.00-0.22 Normal (applies to non-n umeric results) [facility] Abs. Immature Gran. 0.03 x1000/ul 0.00-0.02 Above high normal [facility] Abs. Nucleated RBCs 0.00 x1000/ul 0.00-0.02 Normal (appl ies to non-numeric results) [facility] The above 24 analytes were performed by [facility]'s [place] [id number], ,[place] [address] ID Date Data Source [id number] 07/31/2020 06:26:16 PM EDT [facility] Name Value Range Interpretation Code Description Data Sumaya rce(s) Supporting Document(s) Nursing Note [facility] IGVKRf7uSfDPEsYc83/ZWSjtDGBvl4MbKPogEIt2FKylRORhL3PuRLV8gR6tRSA4FKmIYoCsOcCkWATe [facility] [file] AgICAgICAgICAgICAgICAgICAgICAgICAgICAgICAgICAgICAgICAgICAgICAgICAgICAgICAgICAgIC AgICAgICAgICAgICAgICAgICAgICAgICAgICAgICAgDQogICAgICAgICAgICAgICAgICAgICAgICAgIC AgICAgICAgICAgICAgICAgICAgICAgICAgICAgICAg ICAgICAgICAgICAgICAgICAgICAgICAgICAgICAgICAgICAgICAgICAgDQogICAgICAgICAgICAgICAg ICAgICAgICAgICAgICAgICAgICAgICAgICAgICAgICAgICAgICAgICAgICAgICAgICAgICAgICAgICAg ICAgICAgICAgICAgICAgICAgICAgICAgDQogICAgIC AgICAgICAgICAgICAgICAgICAgICAgICAgICAgICAgICAgICAgICAgICAgICAgICAgICAgICAgICAgIC AgICAgICAgICAgICAgICAgICAgICAgICAgICAgICAgICAgDQogICAgICAgICAgICAgICAgICAgICAgIC AgICAgICAgICAgICAgICAgICAgICAgICAgICAgICAg ICAgICAgICAgICAgICAgICAgICAgICAgICAgICAgICAgICAgICAgICAgICAgDQogICAgICAgICAgICAg ICAgICAgICAgICAgICAgICAgICAgICAgICAgICAgICAgICAgICAgICAgICAgICAgICAgICAgICAgICAg ICAgICAgICAgICAgICAgICAgICAgICAgICAgDQogIC AgICAgICAgICAgICAgICAgICAgICAgICAgICAgICAgICAgICAgICAgICAgICAgICAgICAgICAgICAgIC AgICAgICAgICAgICAgICAgICAgICAgICAgICAgICAgICAgICAgDQogICAgICAgICAgICAgICAgICAgIC AgICAgICAgICAgICAgICAgICAgICAgICAgICAgICAg ICAgICAgICAgICAgICAgICAgICAgICAgICAgICAgICAgICAgICAgICAgICAgICAgDQogICAgICAgICAg ICAgICAgICAgICAgICAgICAgICAgICAgICAgICAgICAgICAgICAgICAgICAgICAgICAgICAgICAgICAg ICAgICAgICAgICAgICAgICAgICAgICAgICAgICAgDQ ogICAgICAgICAgICAgICAgICAgICAgICAgICAgICAgICAgICAgICAgICAgICAgICAgICAgICAgICAgIC WeXUWyOITaSESdWNWaSYSsBDBePRAaTBOuMLDgVOVuUPXsGZKyCOYhHRf9A9vhHEQnTJGxTR2bZUj6Vq 8+WSvEPbWlLYV2vkRmxS3OPA1tg3CyMDaqZYKzc3Au LRx5WO6LSOAeTYvdAY9MGYsrsx4ITOOjMZCstTRDk0saTrMtYEF7HVKzRjerDN3NKPWmD1hvdiFuAPVc NNVUVI0PBbXgS6YgrX10PDMOPb7+ZIknqqHeWsfZTeGjBGSni5IpRGn7XJ9UBFLkKwlvc6CzYoRuSLBD QNcwFY2JPFP8IQKoXLJxHx8MUSIjH276qkLvFC9FIt 9YGzKpZD5ler7BPqCoEOXcUgvMPmk8YHjcKT3GdPCbNDbEwTOzfF8dYW6kwZKcZtejPHxyxoEbFWrgt8 F6bHFuSNCLLyDbaMGtQP7pWP4bEBPeGTQ4KrO2TQERIB6INOIvIYZxuTIjQNFsPJXWDC0JMSdpQHG8Fn gmyoVecYNxBZnqZC0XUIKcjuCkJmQmCDQPJIl+Pg0K PK4zd3VzBBzyWULrXA5wld0IBMmQSkXyP0T6eHCkP2L6PExtRc2BDFCqWPHaNlInHQZRMVqeAW5SCS1p baJ5PC0QfVEbVLVnEVLskBPeXNx3M07dbZBtATigTM4BQAH+Savannah+Hl7QXDKpGGCeBUUfBdNfYFJRPoTd J8QyN6XQz8BqX0HuRL51jIcsqvIaXQzaZW3LHN1bYV MhRKYMBZ4NaDEkpS4azqFvAsYzHANNSaRkR51ibRLtAXKzACUaDMJjOj0ZPWAmV0PlzjBgmWuiswZpED FnAEQEMD0KIIusyyDugUKlaYtnKR77lTprTB3ROi5LNiQsJX0xkm3ZdORkHu0OTWAgWD5WEEYqQHCpZV JdESZ8QZSbVbNeOQjrEWTmBGBgMKG5MFVxXPTwYU2T WyTkMIHpDHe1GuXhMHZjVQRahd0DVKIdQJBrDYW4ZeQhCDGcVLUiMWcxDLWuYQHmGCY0ELCbYWPqJE5D ViLxJUNfKWRgAODnXMUkSVOmaf4OFEFhXBXfWDN2MUYaHRIwCBZoKEhbQKRhNXTwJAN2HBLzWEPlYJ9D IkPnRJTzJMN7WOmuDFZxOSNqfl4CTSGaDNUgTtu4If FiRECjGJTvSLdcSBMgUVRbJNTnXKGnCPJiQG9EEqTwFRYwFTCwRPvqONCpKJHcvv9LPPEzOYZhGHW3AE RiQQHyOJDvUBfqSORoQDP1IwGcYHOdUOAhPG9CExZmTOFzHGJ5JDLcZENwNUSzvr9UUUSmFMLnMkL4KK CkGQXxKJLrOUpwROZzIUO2Tfg5YPCyHNDrIA4UZnCb PDRySDn7XRIfELKnANFztz4PPBOePEFuDPL0BwQyFTOhAGXfODysRCHqWQU8BsU3ELGgAUQiYV0IAlSk NDMbLOo7MDVfYLDjCMYmya2GYPRvBAHcNCK2JhUrDHFpVMNtMPauDATnKORwBpa6CBEwMUKmCQ5YNeLz WIDlAeA3VuHxGDSsWOEldr2GFOObGZTgGJkrPQUiKW PkPXKyNYj7ojLpkJRsAXg8QB7AT4GtwaXaWgJMXd4Rk683FSZ9TNSuLc9MB6emWd6nKRDzUGEDAo7AYI t8P5KhMnF2WuN5FLPiIlVuZUJ9PED6PnEnAcXpRRNlNKC+WChsAZUrZOSdNYF4OKOqIfEgWVs6YIliBO UfYLNkKCVaZN9tRGGYDy5+NUezsOEtpOxpTUEEUzHtUYH8KHjgAPCPMt5S ID Date Data Source [id number] 07/31/2020 06:17:40 PM EDT [facility] Name Value Range Interpretation Code Description Data Sumaya rce(s) Supporting Document(s) Care Plan [facility] RJDRQx7wPkXOClUh10/DQPrdXGYev9VfQXmrPLd8UCvhDSMtK2VkXWM2mU8ySZU1EPpVGcLkHiPgRLXe lbm [file] NgHaWbDSZhFFEbFcLmUQL5MKN+JL7dMFc+Xe6Ka8UnhkZ0akAkQXuiHcXsBF7EZPGVL6WEWk== ID Date Data Source [id number] 07/31/2020 05:39:58 PM EDT [facility] Name Value Range Interpretation Code Description Data Sumaya rce(s) Supporting Document(s) H&P [facility] QIQCSu1tHeDWJfBc41/WJVbfPTXiu4QqJAefDOp5PXeoFQLxE1VgSFK2xT0hOGX0PEuDYpVuWhDrCBXs lbm [file] AgICAgICAgICAgICAgICAgICAgICAgICAgICAgICAgICAgICAgICAgICAgICAgICAgICAgICAgICAgIC AgICAgICAgICAgICANCiAgICAgICAgICAgICAgICAgICAgICAgICAgICAgICAgICAgICAgICAgICAgIC AgICAgICAgICAgICAgICAgICAgICAgICAgICAgICAg ICAgICAgICAgICAgICAgICAgICAgICANCiAgICAgICAgICAgICAgICAgICAgICAgICAgICAgICAgICAg ICAgICAgICAgICAgICAgICAgICAgICAgICAgICAgICAgICAgICAgICAgICAgICAgICAgICAgICAgICAg ICAgICANCiAgICAgICAgICAgICAgICAgICAgICAgIC AgICAgICAgICAgICAgICAgICAgICAgICAgICAgICAgICAgICAgICAgICAgICAgICAgICAgICAgICAgIC AgICAgICAgICAgICAgICANCiAgICAgICAgICAgICAgICAgICAgICAgICAgICAgICAgICAgICAgICAgIC AgICAgICAgICAgICAgICAgICAgICAgICAgICAgICAg ICAgICAgICAgICAgICAgICAgICAgICAgICANCiAgICAgICAgICAgICAgICAgICAgICAgICAgICAgICAg ICAgICAgICAgICAgICAgICAgICAgICAgICAgICAgICAgICAgICAgICAgICAgICAgICAgICAgICAgICAg ICAgICAgICANCiAgICAgICAgICAgICAgICAgICAgIC AgICAgICAgICAgICAgICAgICAgICAgICAgICAgICAgICAgICAgICAgICAgICAgICAgICAgICAgICAgIC AgICAgICAgICAgICAgICAgICANCiAgICAgICAgICAgICAgICAgICAgICAgICAgICAgICAgICAgICAgIC AgICAgICAgICAgICAgICAgICAgICAgICAgICAgICAg ICAgICAgICAgICAgICAgICAgICAgICAgICAgICANCiAgICAgICAgICAgICAgICAgICAgICAgICAgICAg ICAgICAgICAgICAgICAgICAgICAgICAgICAgICAgICAgICAgICAgICAgICAgICAgICAgICAgICAgICAg ICAgICAgICAgICANCiAgICAgICAgICAgICAgICAgIC AgICAgICAgICAgICAgICAgICAgICAgICAgICAgICAgICAgICAgICAgICAgICAgICAgICAgICAgICAgIC AgICAgICAgICAgICAgICAgICAgICANCjw/nWUaM3yraKPgwhW9G9epUp1HZb8WWQ0yc9PwQAPkEVwlik QkGepXTzAhBCOrIrtYIdh2BVosNQ8PiZDfL0AvU5Yc GOqmWP9DVAIbYRUueOEuYGNdKNLeXgH0GJFwQHwhKH7NvRTyQGbbICVnYBZlHuDdBFFwDBJxMJVmEAUe DSKPYK1OOaWsO8UzuZ93ABUBPt1+APlyaaUsMlyQPvL8YZZmj1GqHNo4PF4GGRBiBqplr4FxOfpwOGRD EOoyEM3PYTP1LNQ6FFJaOj7XFWIvU867heVuSI4EOu 6DOxBcZT8hjb8HHobxDSInTqaHCpa9OAvkES6DeBMsKEpGZfCvEaqoFTOdnTBvDBsxqAJ7HGGGCTUosY TmFI2xKM9vBCPzVHWuZrV2OXWBDJ2ZMRHxBLGamJStZEZvACWJIC4GXGqzNFN1ZyhkohWwwBQzYArmPM 9QYXJlbnQgMjYgMCBSDQo+Hq9AZI5fq8GmAZlvDYLz HB8lfi8EOOeXHwOvV9W3eYXdI2O1UVyoDa3NICWoXDOlDcYaWLJBMVwsHG4GBK8yasS9BC5YiMHfNARz YXUetUZeSBs1D62hxEDqYPiyFS9YGRC+Savannah+Fe8NMVJtPTJxMEQxAhXkAYQKKcCuJ2GpK7ELz5TgE8Mg SB24cJtyznJnOLvnMP7ITL9pQQGwAUBZDB9XqBXewY 9sgrVdJwNcRCYVUcDjH69nsEReJUPyTWD4YCZjIx1QVFMoM5JbscOkrYoizmMdVSZwRSRTDF5DMLrkms ZsgSSgfVpeQO76jMevON4EKn1CVeHaYH7zid7AnVScZh8YXDWxYR9TVPOyHDSrYUCgQSH8KGGmKkYsGW pqYHZtZNUvYBO6PYDnGWErCA1YRcIoSWZdRVR9CLIw BQTrUCZtao4AZNGiYRHwYFA3KpQyNTYlAKRmOGnwDXSqQCOsTYK6IPPhLBRyZC9VSkFkSZFcKEI6VDBy UNIvEAIina3QAIQgBTPlIWQ6JTNeULCuEGQsIUtfLUTpKPF9LYs4LZSeARFdLT8VRmVsNTBkVEwxUTsr CGJxBXHzto2KQWMyUKJgYNZ1WFVlUOSoIXSbVChmVI PrBJV1DGb6KEFuGLYgWV5VNnFuRSUcEGKwDVRlENIsZGMfby6FUMKzHAMbGBJ1MqRjZTJiIHFwBMkjBB JgUGVmWpL4TDLwELLtJF6NJwTuNHSwQDR9FLzuDRRdNSAqau1CGTKiIATsNoFeDvAoOHQiNLAcAFtiJO IfULXjDRp9HYQhCXIyYP8GCfEmIGQeVMM1XSXmOEDl MZAxwh0XCPQkYBDzHrn7EkTyHLHqNATnMPujOABwANW7MEB6GQPpGPEjJO8HZzZjZVLrCQXdEIEpADVw NENrbf8PWPQgBEEkKTKuKsPsXSUiNLAyMMhoHJQkAKQ8AgyaGETgFQYoEG0ZFdQuIBGdQUE4GOBpVTQq CYPpir5LRWNqOMWyZpR3AiExRSKpPSLgFHilODHtUY Z8JYW5MDPzKCXwWM8ECfXdPCFcCQg6MxUdLNSoKGJuir5FGOPkWBSpJGT4RAPoPNEkJRLsXEetMUQlWF X4OskfBSYmBIJfOS9XGsNjYTypZNZWAab5IKtzC1r8ZDCgCG1KH1Mnw5DxSossIAHNNKgjEH9hpmXhXC WtLi8AW6sMHvaeWXD0SPSaDDCfXZU3S8IaJQrxAfI1 WVGbMJSeOpApHI1eIRIkEWMrDpViAEQfMIZpUZKdMDLgJNKxNEF0CXZ9QLW3GtMmLK9DCt8ONyF5FDY5 nIExRs1UVGriEbWBTrRrOU8RDId= ID Date Data Source [id number] 07/30/2020 03:19:00 PM EDT [facility] 1 OrderSheet [facility] Emergency Department [address] [place] [address] Phone #: ext- [phone] 07/30/2020 15:09 Patient: NI DIAZ Sex: F : 1980 Age: 40yWEIGHT:68.0 kg (S) HEIGHT:67 inches (S) BMI:23.5ALLERGIES: Levaquin, NSAID, Sulfa AntibioticsCHIEF COMPLAINT: abdominal pain, vomiting, nauseaDIAGNOSIS: Abdominal pain, Gastroparesis syndromeLAB ORDERSOrder Description Priority Entered Acknowledged InitialedBlood Culture STAT 15:35 07/30/2020 15:47 Landon,q10m X2 (Sched Mikey Castrejon R.NCarmelo15:35 07/30/2020) TROY;Blood Culture STAT 15:35 07/30/2020 15:47 Landon,q10m X2 (Sched Mikey Castrejon R.NCarmelo15:45 07/30/2020) TROY;CBC w Diff STAT 15:35 07/30/2020 15:47 Mikey Navarrete R.N.;CMP STAT 15:35 07/30/2020 15:47 Mikey Navarrete R.N. PA;Lactic Acid STAT 15:35 07/30/2020 15:47 Mikey Navarrete R.N. PA;Lipase STAT 15:35 07/30/2020 15:47 Mikey Navarrete R.N. PA;Magnesium STAT 15:35 07/30/2020 15:47 Mikey Navarrete R.N. PA;Phosphorus STAT 15:35 07/30/2020 15:47 Mikey Navarrete R.N. PA;PT/PTT STAT 15:35 07/30/2020 15:47 Mikey Navarrete R.N. PA;Urinalysis (Clean STAT 15:35 07/30/2020 Ack'd: 15:47 Lucía Navarrete R.N.Catch) Mikey Oswald Cancelled: Unable to Collect 19:32 Zenaida SIMMONS; Gilson RN 2 OrderSheet [facility] Emergency Department [address] [place] [address] Phone #: ext- [phone] 07/30/2020 15:09 Patient: NI DIAZ Sex: F : 1980 Age: 40yDIAGNOSTIC STUDY ORDERSOrder Description Priority Entered Acknowledged InitialedCT Abd PEL W/ IV STAT 15:35 07/30/2020 15:47 Landon,Contrast Only Mikey Castrejon R.N.(Oxygen?(No)) PA;(IV?(Yes)) Reason for Study: Abdominal PainMEDICATION/IV/DRIP/FLUID ORDERSOrder Description Priority Entered Acknowledged InitialedIV NS : Bolus 1000 15:35 07/30/2020 16:05 DorismL, then 150 mL/hr Mikey SIMMONS;Promethazine IV 15:35 07/30/2020 16:07 Tbges14jn in 50mL NS, Mikey Riggins RNgive wide open: 25 PA;mg (NOW x1, HIGHALERTMEDICATION)Dilaudid 1 mg IVP, 15:35 07/30/2020 16:08 Dorismay repeat q30min Mikey Riggins RNX 3 PRN Pain: 1 mg PA;(NOW x1, mayrepeat l91xletdomX 3 PRN Pain, keepo2 sat > 90%, HIGHALERTMEDICATION)Zofran IVP 8 mg 18:38 07/30/2020 18:50 Zenaida Riggins RN PA; Reason for ordering with alerts: Clinical consideration given -- 18:38 07/30/2020 Mikey Oswald PAfentaNYL IVP 50 18:38 07/30/2020 18:51 Dorismcg (HIGH ALERT Mikey Riggins RNMEDICATION) PA; Reason for ordering with alerts: Clinical consideration given -- 18:38 07/2020 Mikey Oswald PAGENERAL ORDERSOrder Description Priority Entered Acknowledged Initialed[Electronically signed by Zenaida Riggins RN (19:32 07/30/2020)] 3 OrderSheet [facility] Emergency Department [address] [place] [address] Phone #: ext- [phone] 07/30/2020 15:09 Patient: NI DIAZ Sex: F : 1980 Age: 40y[Electronically signed by Mikey Oswald (17:29 07/31/2020)][Electronically locked by Zenaida Riggins RN (19:32 07/30/2020)] Name Value Range Interpretation Code Description Data Sumaya rce(s) Supporting Document(s) ID Date Data Source [id number] 07/30/2020 03:19:00 PM EDT [facility] 1 Medication Reconciliation Report [facility] Emergency Department [address] [place] [address] Phone #: ext- [phone] 07/30/2020 15:09 [id number] Sex[facility] F : 1980 Age: 40yWeight: 68.0 kgHeight/Length: 67 in.BMI: 23.5ALLERGIES: Levaquin, NSAID, Sulfa AntibioticsThe patient's Home Medications are listed below:CONTINUE TAKING THE FOLLOWING MEDICATIONS: Ambien Oral 7.5, daily, via J tube, prn,at bedtime Benadryl IV 50mg QDAY for nausea, 2x a day Carafate Oral 1 gm, q4h, via J tube Creon Oral (9486-6778 unit) 1 capsule, 4x a day, J tube FLUoxetine HCl Oral 20 mg, daily, via J tube Lovenox Subcutaneous (80 mg/0.8mL) 70 mg, 2x a day Ondansetron HCl Injection 8 mg IVP, q8h, prn oxyCODONE HCl Oral 100/5 ml; 1ML, 4x a day, via J tube, prn Protonix Intravenous (40 mg), 2x a day Tylenol Oral, prnThe source(s) of the original Home Medication information:Not obtained.The following Medications were given to the patient in the Emergency Department:IV NS IV Fluids bolus 1000 mL over 30 minute(s), then 1000 mL/hr, administered: 07/30/2020 4:00:00 PMPromethazine [IVPB] IVPB bolus 0, then 25 mg 200 mL/hr, administered: 07/30/2020 4:00:00 PM 2 Medication Reconciliation Report [facility] Emergency Department [address] [place] [address] Phone #: ext- [phone] 07/30/2020 15:09 Patient: NI DIAZ Sex: F : 1980 Age: 40yDilaudid [IVP] IVP 1 mg diluted in NS 10 mL, administered: 07/30/2020 4:03:00 PMDilaudid [IVP] IVP 1 mg diluted in NS 10 mL, administered: 07/30/2020 4:44:00 PMZofran [IVP] IVP 8 mg, administered: 07/30/2020 6:45:00 PMFentanyl [IVP] IVP 50 mcg diluted in NS 10 mL, administered: 07/30/2020 6:47:00 PMThe following Medications were prescribed to the patient:None. Name Value Range Interpretation Code Description Data Sumaya rce(s) Supporting Document(s) ID Date Data Source [id number] 07/30/2020 03:19:00 PM EDT [facility] 1 Medication Administration Record [facility] Emergency Department [address] [place] [address] Phone #: ext- [phone] 07/30/2020 15:09 Patient: NI DIAZ Sex: F : 1980 Age: 40yWeight: 68.0 kgHeight/Length: 67 inBMI: 23.5ALLERGIES: Levaquin, NSAID, Sulfa Antibiotics Date/Time Medication Administered Medication OrderedStart IV NS IV NS : Bolus 1000 mL, then 41892:00 07/30/2020 Dose: IV Fluids mL/hrZenaida Riggins, RN Rate: 1000 mL/hr over 30 minute(s)---- Bolus: 1000 mL over 30 minute(s)Stop Dispensed: 1000 mL bag18:51 07/30/2020 Site: #2 left forearmMAGGI [place] PROMETHAZINE [IVPB] Promethazine IV 25mg in 50mL16:00 07/30/2020 Dose: 25 mg IVPB NS, give wide open: 25 mg (Maricruz Riggins RN Rate: 200 mL/hr over 15 minute(s) x1, HIGH ALERT MEDICATION)---- Dispensed: 50 mL bagStop Site: #2 left zkwgyix06:15 07/30/2020Zenaida Riggins RNGiven DILAUDID [IVP] (HYDROMORPHONE Dilaudid 1 mg IVP, may :03 07/30/2020 HCL) q30min X 3 PRN Pain: 1 mg (Maricruz Riggins RN Dose: 1 mg IVP x1, may repeat c80bvizgem X 3 In: NS 10 mL PRN Pain, keep o2 sat > 90%, Site: #2 left forearm HIGH ALERT MEDICATION)Given DILAUDID [IVP] (HYDROMORPHONE Dilaudid 1 mg IVP, may lqjvyr92:44 07/30/2020 HCL) q30min X 3 PRN Pain: 1 mg (Maricruz Riggins RN Dose: 1 mg IVP x1, may repeat n46lddohch X 3 In: NS 10 mL PRN Pain, keep o2 sat > 90%, Site: #2 left forearm HIGH ALERT MEDICATION)Given ZOFRAN [IVP] (ONDANSETRON HCL) Zofran IVP 8 mg18:45 07/30/2020 Dose: 8 mg IVPDlili Riggins RN Site: #2 left forearmGiven FENTANYL [IVP] fentaNYL IVP 50 mcg (HIGH18:47 07/30/2020 Dose: 50 mcg IVP ALERT MEDICATION)Zenaida Riggins RN In: NS 10 mL Site: #2 left forearm Name Value Range Interpretation Code Description Data Sumaya rce(s) Supporting Document(s) ID Date Data Source [id number] 07/30/2020 03:19:00 PM EDT [facility] 1 General Instructions [facility] Emergency Department [address] [place] [address] Phone #: ext- [phone] 07/30/2020 15:09 Patient: NI DIAZ [facility]#: [id number] Sex: F : 1980 Age: 40yChronic generalized abdominal pain. (Gastroparesis).Chronic gastroparesis. No diabetes.INSTRUCTIONSWarnings: GENERAL WARNINGS: Return or contact your physician immediately if your conditionworsens or changes unexpectedly, if not improving as expected, or if other problems arise.SPECIFICALLY, return if you develop fever, the inability to keep fluids down, blood in vomitus or blood indiarrhea; or if there is no improvement in the pain.Your Current Medications: Your current home medications have been reviewed.CONTINUE TAKING THE FOLLOWING MEDICATIONS:Ambien Oral : 7.5 daily, prn, at bedtime, via J tube.Benadryl IV 50mg QDAY for nausea* : 2x a day.Carafate Oral : 1 gm q4h, via J tube.Creon Oral : Capsule Delayed Release Particles [id number] unit, 1 capsule 4x a day, J tube.FLUoxetine HCl Oral : 20 mg daily, via J tube.Lovenox Subcutaneous : Solution 80 mg/0.8mL, 70 mg 2x a day.Ondansetron HCl Injection : 8 mg IVP q8h, prn.oxyCODONE HCl Oral : 100/5 ml; 1ML 4x a day, prn, via J tube.Protonix Intravenous : Solution Reconstituted 40 mg, 2x a day.Tylenol Oral : prn.Follow-up:Follow up with your doctor Saturday if not better. Reason for referral: evaluation and treatment. Summary ofcare provided to patient.Understanding of the discharge instructions verbalized by patient and family. ADDITIONAL INFORMATIONUnknown Causes of Abdominal Pain (Female) 2 General Instructions [facility] Emergency Department [address] [place] [address] Phone #: ext- [phone] 07/30/2020 15:09 Patient: NI DIAZ Sex: F : 1980 Age: 40yThe exact cause of your belly (abdominal) pain is not clear. This does not mean that this is somethingto worry about. Everyone likes to know the exact cause of the problem. But sometimes with bellypain, there is no clear-cut cause, and this could be a good thing. The good news is that yoursymptoms can be treated, and you will feel better.Your condition does not seem serious now. But sometimes the signs of a serious problem may takemore time to appear. For this reason, it is important for you to watch for any new symptoms,problems, or worsening of your condition.Over the next few days, the abdominal pain may come and go. Or it may be constant. Other commonsymptoms can include nausea and vomiting. Sometimes it can be difficult to tell if you feel nauseous.You may just feel bad and not connect that feeling to nausea. Constipation, diarrhea, and a fever maygo along with the pain.The pain may continue even if treated correctly over the following days. Depending on how things go,sometimes the cause can become clear and may need more or different treatment. Additionalevaluations, medicines, or tests may also be needed.Home careYour healthcare provider may prescribe medicine for fariba n, symptoms, or an infection. Follow thehealthcare provider's instructions for taking these medicines. 3 General Instructions [facility] Emergency Department [address] [place] [address] Phone #: ext- [phone] 07/30/2020 15:09 Patient: NI DIAZ Sex: F : 1980 Age: 40yGeneral care Rest as much as you can until your next exam. No strenuous activities. Try to find positions that ease discomfort. A small pillow placed on the abdomen may help relieve pain. Something warm on your abdomen (such as a heating pad) may help, but be careful not to burn yourself.Diet Don't force yourself to eat, especially if having cramps, vomiting, or diarrhea. Water is important so you don't get dehydrated. Soup may also be good. Sports drinks may also help, especially if they are not too acidic. Don't drink sugary drinks as this can make things worse. Take liquids in small amounts. Don't guzzle them. Caffeine sometimes makes the pain and cramping worse. Don't take dairy products if you have vomiting or diarrhea. Don't eat large amounts at a time. Wait a few minutes between bites. Eat a diet low in fiber (called a low-residue diet). Foods allowed include refined breads, white rice, fruit and vegetable juices without pulp, tender meats. These foods will pass more easily through the intestine. Don't have whole-grain foods, whole fruits and vegetables, meats, seeds and nuts, fried or fatty foods, dairy, alcohol and spicy foods until your symptoms go away.Follow-up careFollow up with your healthcare provider, or as advised, if your pain does not begin to improve in thenext 24 hours.Call [phone] if any of these occur: Trouble breathing Confusion Fainting or loss of consciousness Rapid heart rate 4 General Instructions [facility] Emergency Department [address] [place] [address] Phone #: [phone] ext- [phone] 07/30/2020 15:09 Patient: NI DIAZ Sex: F : 1980 Age: 40y SeizureWhen to seek medical adviceCall your [facility] provider right away if any of these occur: Pain gets worse or moves to the right lower abdomen New or worsening vomiting or diarrhea Swelling of the abdomen Unable to pass stool for more than 3 days Fever of 100.4F (38C) or higher, or as directed by your healthcare provider. Blood in vomit or bowel movements (dark red or black color) Yellow color of eyes and skin (jaundice) Weakness, dizziness Chest, arm, back, neck, or jaw pain Unexpected vaginal bleeding or missed period Can't keep down liquids or water and you are getting dehydrated [id number] [employer]. [address] [place] [id number]. All rights reserved. This information is not intended as asubstitute for professional medical care. Always follow your healthcare professional's instructions. You have been given the following additional information: Abdominal Pain, Unknown Cause, (Female)(Electronically signed by TROY Rosa 07/31/2020 17:29) Name Value Range Interpretation Code Description Data Sumaya rce(s) Supporting Document(s) ID Date Data Source [id number] 07/30/2020 03:19:00 PM EDT [facility] 1 Clinical Report - Nurses [facility] Emergency Department [address] [place] [address] Phone #: ext- [phone] 07/30/2020 15:09 Patient: NI DIAZ Sex: F : 1980 Age: 40yTRIAGEArrived by private vehicle. Historian: patient.Acuity: LEVEL 3.Chief Complaint: ABDOMINAL PAIN, NAUSEA and VOMITING.This started last night. ( Pt states she has a history of gastro paresis and started again last night withabdominal pain along with nausea and vomiting, no relief yet today).Treatment RAIL BENDER:None.SEPSIS SCREEN: SIRS Screen negative: heart rate greater than 90. Sepsis Screen negative. Nosuspected or confirmed signs of infection present.LIDIA COMA SCORE: 15- eyes open- spontaneous (4); best verbal response- oriented (5); bestmotor response- obeys commands (6). --15:14 07/30/20 Jeff Metcalf RN15:10 07/30/20. BP: 123/65. MAP: 84. HR: 117. RR: 18. O2 saturation: 99% on room air. Temp: 97.6 F(oral). Pain level now: 05/30. --15:14 07/30/20 Jeff Metcalf RN.Weight: 68 kg stated. Height/Length: 67 inches Per Patient. BMI: 23.5. --15:09 07/30/20 Jeff Metcalf RN.MedicationsAmbien Oral 7.5, daily as needed, at bedtime, via J tube. Benadryl IV 50mg QDAY for nausea, 2x a day. Carafate Oral 1 gm, q4h, via J tube. Creon Oral (Capsule Delayed Release Particles [id number] unit) 1 capsule, 4x a day, J tube. FLUoxetine HCl Oral 20 mg, daily, via J tube. Lovenox Subcutaneous (Solution 80 mg/0.8mL) 70 mg, 2x a day. Ondansetron HCl Injection 8 mg IVP, q8h as needed. oxyCODONE HCl Oral 100/5 ml; 1ML, 4x a day as needed, via J tube. Protonix Intravenous (Solution Reconstituted 40 mg), 2x a day. Tylenol Oral, as needed. --15:07/30/20 Zenaida Riggins RN.Allergi esLevaquin.(hives)NSAID.Sulfa Antibiotics.(Anaphylaxis) --15:07/30/20 Zenaida Riggins RN. 2 Clinical Report - Nurses [facility] Emergency Department [address] [place] [address] Phone #: ext- [phone] 07/30/2020 15:09 Patient: NI DIAZ [facility]#: [id number] Sex: F : 1980 Age: 40yPROBLEMS:Pulmonary Embolism.Anemia.Status Epilepticus. --15:07/30/20 Zenaida Riggins RNThe following entry was modified by Zenaida Riggins RN, 15:07/30/20Malabsorption syndrome. --15:07/30/20 Zenaida Riggins RNThe following entry was modified by Zenaida Riggins RN, 15:24 07/30/20 Reason - duplicateGastroparesis. --16:22 06/03/20 Zenaida Riggins RN.ADDITIONAL SURGERIES:Bowel resection.Bowel Resection [2016].Cholecystectomy.Gastric bypass.Gastric bypass reversal [08/2019].Gastric Resection [2008].GI bleed clipping.Hysterectomy.J-Tube placement.Lifeport [10/2017].Portacath left chest.Nadege-en-Y gastrojejunostomy [2009].Spinal fusion.Spinal fusion. --15:24 07/30/20 Zenaida Riggins RN.HistoryPAST MEDICAL HX: Immunizations: up-to-date. Has had a tubal ligation and hysterectomy.SOCIAL HX: Never smoker. No alcohol use or drug use. No recent travel. No known contact with a sickindividual. She was offered HIV testing but declined and hepatitis C testing but declined. She has nottraveled outside the [place]Infectious disease exposure: No infectious disease exposure. The patient was not exposed to Coronavirus.SELF HARM ASSESSMENT: Self harm assessment was performed. The patient answered "no" to thequestion(s) "Have you recently felt down, depressed, or hopeless?", "Do you have thoughts of harming orkilling yourself?", "Do you have a plan for harming or killing yourself?", "Have you recently had thoughtsabout harming or killing others?", "Do you have any dangerous items in your possession?", "Have younoticed less interest or pleasure in doing things?", "Are you here because you tried to hurt yourself?" and"Have you ever tried to hurt yourself before today?".ABUSE ASSESSMENT: No report of abuse.NUTRITIONAL RISK ASSESSMENT: The nutritional risk assessment revealed no deficiencies. 3 Clinical Report - Nurses [facility] Emergency Department [address] [place] [address] Phone #: ext- [phone] 07/30/2020 15:09 Patient: NI DIAZ [facility]#: [id number] Sex: F : 1980 Age: 40y FUNCTIONAL ASSESSMENT: Functional assessment: no impairments noted. LEARNING NEEDS ASSESSMENT: The learning needs assessment revealed no barriers. FALL RISK ASSESSMENT: Fall risk assessment completed. No risk factors identified. SKIN INTEGRITY ASSESSMENT: Skin integrity risk assessment completed. No skin integrity risk identified. --15:14 07/30/20 Jeff Metcalf RN.PHYSICAL KRIKILSYDV77:18 07/30/20. To room via wheelchair.GENERAL / NEURO / PSYCH: Alert. Oriented X 4. Appears in pain.HEENT: Mucous membranes are pink.RESPIRATORY: Respirations not labored. Breath sounds within normal limits.GI / : The patient has had nausea. Abdomen soft. Abdominal tenderness present. Abdominaltenderness in the left side of the abdomen and left lower quadrant. Diminished bowel sounds in allquadrants.SKIN: Skin is warm and dry. --15:19 07/30/20 Zenaida Riggins RN.NURSING PROGRESS NOTES15:14 07/30/20. Patient gowned. Two patient identifiers checked. Call light placed in reach. Side r ailsup. Bed placed in lowest position. Brakes of bed on. Patient ready for evaluation- ED physician and PAnotified. --15:20 07/30/20 Zenaida Riggins RN 15:20 07/30/2020 Site #1 accessed indwelling [place] in the right chest using a 20g non-coring needle-less system. Blood drawn: rainbow set and cultures x1. Labeled in the presence of the patient and sent to the lab. Distal port flushed with 10 mL saline and with 10 mL heparin. --15:35 07/30/20 Lucía Navarrete R.N. 15:30 07/30/20. ( Lying on left side, knees drawn up, moaning, complains of left abdominal pain, nausea, frequent vomiting). --16:29 07/30/20 Zenaida Riggins RN 15:45 07/30/2020 Site #2 started via IV in the left forearm with an 20g angiocath, with aseptic technique and good blood return; one attempt. Blood drawn: cultures x2. Labeled in the presence of the patient and sent to the lab. Saline lock flushed with 10 mL saline. --15:47 07/30/20 Lucía Navarrete R.N. 16:00 07/30/2020 Started bag #1 1000 mL IV Fluids IV NS; bolus of 1000 mL over 30 minute(s) then at 1000 mL/hr over 30 minute(s) via site #2 via IV pump. Allergies verified and confirmed 5 rights. IV patency established. IV site checked: no pain, redness, or swelling. IV flushed thoroughly pre- and post- medication administration. Information reviewed with patient including reason for taking this medication, signs of allergic reaction and precautions. Completed per protocol. --16:05 07/30/20 Zenaida Riggins RN 16:00 07/30/2020 Started 25 mg of Promethazine IVPB in bag #1 50 mL; at 200 mL/hr over 15 minute(s) via site #2. via IV pump. Allergies verified and confirmed 5 rights. IV patency established. IV site checked: 4 Clinical Report - Nurses [facility] Emergency Department [address] [place] [address] Phone #: ext- [phone] 07/30/2020 15:09 Patient: NI DIAZ Sex: F : 1980 Age: 40yno pain, redness, or swelling. IV flushed thoroughly pre- and post-medication administration. Informationreviewed with patient including reason for taking this medication, signs of allergic reaction, precautions andsedative warnings. V erbalizes understanding. Completed per protocol. --16:07 07/30/20 Zenaida Riggins RN16:03 07/30/2020 Dilaudid (HYDROmorphone HCl) IVP 1 mg given diluted in NS 10mL over 3 minute(s)via site #2. Allergies verified and confirmed 5 rights. IV patency established. IV site checked: no pain,redness, or swelling. IV flushed thoroughly pre- and post-medication administration. IVP given by RN.Information reviewed with patient including reason for taking this medication, signs of allergic reaction,precautions and sedative warning. Verbalizes understanding. --16:08 07/30/20 Zenaida Riggins, RN16:05 07/30/20. Re assessment after medication administered. Pain still present. Reassessment afterfluids administered. She has had no adverse reaction.GENERAL / NEURO / PSYCH: Appears in pain and anxious.GI / : The patient reports nausea. The patient reports vomiting. She reports abdominal pain located inthe left side of the abdomen. --16:30 07/30/20 Zenaida Riggins, RN16:15 07/30/2020 Promethazine IVPB via IV site #2 Discontinued: completed. Total amount infused: 50mL. IV patency established. IV site checked: no pain, redness, or swelling. IV flushed thoroughly. --16: Zenaida Riggins RN16:25 07/30/20. Patient transported to CT by wheelchair with radiology asst. --16:31 07/30/20 Uday RN16:39 07/30/20. Patient returned from radiology and CT by wheelchair with radiology asst. --16: Zenaida Riggins, RN16:43 07/30/20. Reassessment after medication administered and fluids administered. She has had noadverse reaction.GI / : The patient reports abdominal pain located in the left side of the abdomen is still present andworsening and currently severe and associated with nausea and vomiting. --16:50 07/30/20 Uday RN16:44 07/30/2020 Dilaudid (HYDROmorphone HCl) IVP 1 mg given diluted in NS 10mL over 3 minute(s)via site #2. Allergies verified and confirmed 5 rights. IV patency established. IV site checked: no pain,redness, or swelling. IV flushed thoroughly pre- and post-medication administration. IVP given by RN.Information reviewed with patient including reason for taking this medication, signs of allergic reaction,precautions and sedative warning. Verbalizes understanding. --16:49 07/30/20 Zenaida Riggins RN16:47 07/30/20. BP: 124/82. MAP: 96. HR: 115. RR: 22. O2 saturation: 100%. Pain level now: 05/30.--16:50 07/30/20 Zenaida Riggins RN17:09 07/30/20. Reassessment after medication administered. No adverse reaction. Pain still present butimproving. Nausea still present but improving. Vomiting gone now. Reassessment after fluids administered. 5 Clinical Report - Nurses [facility] Emergency Department [address] [place] [address] Phone #: ext- [phone] 07/30/2020 15:09 Patient: NI DIAZ Sex: F : 1980 Age: 40yThe patient is calm and resting quietly and has had no adverse reaction. --17:10 07/30/20 STACIE Frye17:29 07/30/2020 IV Fluids IV NS via IV site #2 Bag Change: bag #1 completed. Total amount infused:1000. STARTED bag #2 (1000 mL) at 1000 mL/hr via IV pump. Confirmed 5 rights. IV patency established.IV site checked: no pain, redness, or swelling. IV flushed thoroughly. --17:29 07/30/20 Lucía Navarrete R.N.17:16 07/30/20. BP: 94/37. MAP: 56. HR: 98. RR: 20. O2 saturation: 99%. Pain level now: 03/30. --17: Zenaida Riggins RN17:30 07/30/20. BP: 89/53. MAP: 65. HR: 93. RR: 20. O2 saturation: 100%. Pain level now: 03/30.--17:32 07/30/20 Zenaida Riggins RN17:45 07/30/20. BP: 82/47. MAP: 58 . HR: 86. RR: 18. O2 saturation: 98% on room air. Pain level now:03/30. --18:01 07/30/20 Zenaida Riggins RN18:00 07/30/20. BP: 106/71. MAP: 82. HR: 96. RR: 18. O2 saturation: 99% on room air. Pain level now:03/30. --18:02 07/30/20 Zenaida Riggins RN16:18 07/30/2020 Dilaudid IVP Response: no adverse reaction symptoms are the same. The patient feelsthe same. --19:26 07/30/20 Zenaida Riggins RN16:59 07/30/2020 Dilaudid IVP Response: no adverse reaction pain is improving. Symptoms haveimproved the patient feels better. --19:27 07/30/20 Zenaida Riggins RN18:00 07/30/20. The patient is calm and resting quietly.GI / : The patient reports abdominal pain located in the left side of the abdomen is still present butimproving. Denies vomiting. --18:02 07/30/20 Zenaida Riggins RN18:45 07/30/2020 Zofran (Ondansetron HCl) IVP 8 mg given over 2 minute(s) via site #2. Allergies verifiedand confirmed 5 rights. IV patency established. IV site checked: no pain, redness, or swelling. IV flushedthoroughly pre- and post-medication administration. IVP given by RN. Information reviewed with patientincluding reason for taking this medication, signs of allergic reaction and precautions. Verbalizesunderstanding. --18:50 07/30/20 Zenaida Riggins RN18:47 07/30/2020 Fentanyl IVP 50 mcg given diluted in NS 10mL over 3 minute(s) via site #2. Allergiesverified and confirmed 5 rights. IV patency established. IV site checked: no pain, redness, or swelling. IVflushed thoroughly pre- and post-medication administration. IVP given by RN. Information reviewed withpatient including reason for taking this medication, signs of allergic reaction, precautions and sedativewarning. Verbalizes understanding. --18:51 07/30/20 Zenaida Riggins RN18:51 07/30/2020 IV Fluids IV NS via IV site #2 Discontinued: bag #2 infused. Total amount infused: 1000mL. IV patency established. IV site checked: no pain, redness, or swelling. IV flushed thoroughly. --18:51 6 Clinical Report - Nurses [facility] Emergency Department [address] [place] [address] Phone #: ext- [phone] 07/30/2020 15:09 Patient: IN DIAZ Sex: F : 1980 Age: 40y 07/30/20 Zenaida Riggins RN 19:00 07/30/2020 Zofran IVP Response: no adverse reaction pain is improving. Symptoms have improved the patient feels better. -- 19:28 07/30/20 Zenaida Riggins RN 19:02 07/30/2020 Fentanyl IVP Response: no adverse reaction pain is improving. Symptoms have improved the patient feels better. --19:28 07/30/20 Zenaida Riggins RN 19:25 07/30/2020 Site #[address] upon discharge ([place] catheter accessed for blood draw only, flushed with saline followed by Heparin flush by Ifeoma Navarrete RN @ 2098). --19:31 07/30/20 Zenaida Riggins RN.DISPOSITION / DISCHARGE 19:20 07/30/20. BP: 99/65. MAP: 76. HR: 90. RR: 18. O2 saturation: 100%. Temp: 97.8 F. Pain level now: 02/27. --19:25 07/30/20 Zenaida Riggins RN 19:20 07/30/2020 Site #2 removed upon discharge. Catheter intact. Manual pressure and bandage applied. --19:25 07/30/20 Zenaida Riggins RN 19:25 07/30/20. Condition at departure: improved and stable. No learning barriers present. Discharge instructions provided and reviewed with the patient. Patient verbalized understanding. Written instructions provided in [place]. The patient was discharged home and accompanied by spouse. She left ambulatory and via private vehicle. Spouse driving. --19:25 07/30/20 Zenaida Riggins RN.Locked/Released at 07/30/2020 19:32 by Zenaida Riggins RN Name Value Range Interpretation Code Description Data Sumaya rce(s) Supporting Document(s) ID Date Data Source [id number] 0001 07/30/2020 03:19:00 PM EDT [facility] 1 Clinical Report - Physicians/Mid Levels [facility] Emergency Department [address] [place] [address] Phone #: ext- [phone] 07/30/2020 15:09 [id number] : 1980 Age: 40y Time Seen: 15:25 07/30/2020. Arrived- By private vehicle. Historian- patient and spouse.HISTORY OF PRESENT ILLNESS Chief Complaint: ABDOMINAL PAIN and VOMITING and NAUSEA. This started last night Pt states she has a history of gastro paresis and started again last night with abdominal pain along with nausea and vomiting, no relief yet today and is still present. It was abrupt in onset and has been constant. It is described as "pain", sharp and stabbing and it is described as located in the left lower quadrant. At its maximum, severity described as severe. When seen in the E.D., severity described as severe. The patient has had nausea and vomiting. No loss of appetite or diarrhea. Similar symptoms previously. Patient has had similar symptoms several times. Recent medical care: The patient was seen recently at this [facility] it.REVIEW OF SYSTEMSThe patient has had a hysterectomy. No constipation, black stools, hematemesis, difficulty with urinationor pain with urination. No urinary frequency, abnormal bleeding, bloody stools, fever or headache. Nosore throat, blurred vision, chest pain, difficulty breathing or cough. No joint pain, skin rash, chills or backpain. Last bowel movement: today. The patient has not had weight loss.PAST HISTORYProblems:Gastroparesis.Pulmonary Embolism.Anemia.Status Epilepticus.Abdominal Pain. Additional Surgeries: Bowel resection. Bowel Resection [2016]. Cholecystectomy. Gastric bypass. Gastric bypass reversal [08/2019]. Gastric Resection [2009]. GI bleed clipping. Hysterectomy. J-Tube placement. [place] [10/2017]. Portacath left chest. 2 Clinical Report - Physicians/Mid Levels [facility] Emergency Department [address] [place] [address] Phone #: ext- [phone] 07/30/2020 15:09 [id number] Sex[facility] F : 1980 Age: 40y Nadege-en-Y gastrojejunostomy [2009]. Spinal fusion. Spinal fusion. Medications: Ambien Oral 7.5, daily as needed, at bedtime, via J tube. Benadryl IV 50mg QDAY for nausea, 2x a day. Carafate Oral 1 gm, q4h, via J tube. Creon Oral (Capsule Delayed Release Particles [id number] unit) 1 capsule, 4x a day, J tube. FLUoxetine HCl Oral 20 mg, daily, via J tube. Lovenox Subcutaneous (Solution 80 mg/0.8mL) 70 mg, 2x a day. Ondansetron HCl Injection 8 mg IVP, q8h as needed. oxyCODONE HCl Oral 100/5 ml; 1ML, 4x a day as needed, via J tube. Protonix Intravenous (Solution Reconstituted 40 mg), 2x a day. Tylenol Oral, as needed. Allergies: Levaquin.(hives) NSAID. Sulfa Antibiotics.(Anaphylaxis).SOCIAL HISTORYNever smoker. No alcohol use or drug use.PHYSICAL EXAMVital Signs: 07/30/2020 15:10 BP: 123/65. MAP: 84. HR: 117. RR: 18. O2 saturation: 99% on room air.Temp: 97.6 F. Pain level now: 05/30. Have been reviewed as abnormal. Tachycardic. Oxygen saturationnormal.Appearance: Alert. Oriented X3. No acute distress.Eyes: Pupils equal, round and reactive to light. Eyes normal inspection.ENT: Ears normal. Nose normal. Pharynx delano l.Neck: Normal inspection.CVS: Tachycardia. Heart sounds normal.Respiratory: No respiratory distress. Breath sounds normal.Abdomen: Soft. Moderate tenderness in the left lower quadrant. Bowel sounds normal. Noorganomegaly. No mass.Back: Normal inspection.Skin: Skin warm and dry. Normal skin color. No rash. Normal skin turgor.Extremities: Extremities exhibit normal ROM. No lower extremity edema.Neuro: Oriented X 3.LABS, X-RAYS, AND EKGCT Abdomen - Pelvis: 1. No change. No acute findings in the abdomen or pelvis. 2. Stable postoperative findings in the stomach, small bowel and unchanged feeding tube. Study type:upper abdomen; lower abdomen; pelvis. Abdomen - pelvic CT performed with IV contrast. The study 3 Clinical Report - Physicians/Mid Levels [facility] Emergency Department [address] [place] [address] Phone #: ext- [phone] 07/30/2020 15:09 Patient: NI DIAZ Sex: F : 1980 Age: 40ywas interpreted by the radiologist and contemporaneously by me. Interpretation time: 19:14 07/30/2020.Laboratory Tests: Laboratory tests have been ordered, with results reviewed and considered in themedical decision making process.CBC w Diff: (LUISANA: 07/30/2020 15:30) ( MsgRcvd 07/30/2020 16:08) Final results Test Result Flag Units (Reference) CBC W/AUTOMATED DIFF COMPLETE BLOOD COUNT WBC 9.9 10/uL (4.2 - 11.0) RBC 4.41 10/uL (4.20 - 5.40) HEMOGLOBIN 10.5 L g/dL (12.0 - 16.0) HEMATOCRIT 35.0 L % (37.0 - 47.0) MCV 79.4 L fL (81.0 - 101) MCH 23.8 L pg (27.0 - 34.0) MCHC 30.0 L g/dL (31.0 - 36.0) RDW 17.7 H % (11.5 - 14.5) PLATELETS 656 H 10/uL (150 - 450) MPV 9.1 fL (7.4 - 10.4) NEUT 87.2 H % (37.0 - 80.0) LYMPH 7.2 L % (25.0 - 40.0) MONO 2.3 L % (3.0 - 8.0) EOS 2.0 % (0.0 - 7.0) BASO 0.8 % (0.0 - 2.5) %IG 0.5 H % (0.0 - 0.0) %NRBC 0.0 % (0.0 - 0.0) #NEUT 8.61 H 10/uL (2.00 - 6.90) #LYMPH 0.71 10/uL (0.60 - 3.40) #MONO 0.23 10/uL (0.00 - 0.90) #EOS 0.20 10/uL (0.00 - 0.70) #BASO 0.08 10/uL (0.00 - 0.20) #IG 0.05 10/uL (0.00 - 0.10) #NRBC 0.00 10/uL (0.00 - 0.00) MANUAL DIFF NOT INDICATED RBC MORPH NOT INDICATEDCMP: (LUISANA: 07/30/2020 15:30) ( MsgRcvd 07/30/2020 16:31) Final results Test Result Flag Units (Reference) COMPREHENSIVE METABOLIC PANEL COMPREHENSIVE METABOLIC PANEL SODIUM 136 mEq/L (134 - 153) POTASSIUM 4.7 mEq/L (3.6 - 5.0) CHLORIDE 99 mEq/L (98 - 107) CO2 23 MEQ/L (22 - 30) GLUCOSE 160 H MG/DL (65 - 110) BUN 12 MG/DL (7 - 21) CREATININE 0.6 L MG/DL (0.7 - 1.5) BUN/CREAT 20 (8 - 27) TOTAL PROTEIN 7.4 G/DL (6.3 - 8.2) ALBUMIN 4.7 G/DL (3.9 - 5.0) GLOBULIN 2.7 GM/DL (2.4 - 3.2) A/G RATIO 1.7 (0.8 - 2.0) CALCIUM 9.8 MG/DL (8.4 - 10.2) TOTAL BILI <0.7 MG/DL (0.2 - 1.3) ALKALINE PHOS 223 H U/L (38 - 126) SGOT/AST 60 H U/L (5 - 40) SGPT/ALT 67 H U/L (7 - 56) ANION GAP 14.0 mmol/L (8.0 - 16.0) AGE 40 yrs 4 Clinical Report - Physicians/Mid Levels [facility] Emergency Department [address] [place] [address] Phone #: ext- [phone] 07/30/2020 15:09 Patient: NI DIAZ Sex: F : 1980 Age: 40y NON-AA GFR >60 mL/min AFR AMER GFR >60 mL/min Male GFR Interprentation 20-49 yrs >60 mL/min Btsexc22-51 yrs >56 mL/min Normal 60-69 yrs >49 mL/min Normal 70-79yrs>42 mL/min Normal 80 and above >35 mL/min Normal Female GFRInterpretation 20-39 yrs >60 mL/min Normal 40-49 yrs >58 mL/minNormal 50-59 yrs >51 mL/min Normal 60-69 yrs >45 mL/min Bggfvh82-28 yrs >39 mL/min Normal 80 and above >32 mL/min NormalLactic Acid: (LUISANA: 07/30/2020 15:30) ( OhgRcvd 07/30/2020 16:07) Final results Test Result Flag Units (Reference) LACTIC ACID 3.0 H MMOL/L (0.2 - 2.2)Lipase: (LUISANA: 07/30/2020 15:30) ( MsgRcvd 07/30/2020 16:31) Final results Test Result Flag Units (Reference) LIPASE 28 U/L (13 - 60)Magnesium: (LUISANA: 07/30/2020 15:30) ( [facility]31[facility] Final results Test Result Flag Units (Reference) MAGNESIUM 2.0 MG/DL (1.7 - 2.2)Phosphorus: (LUISANA: 07/30/2020 15:30) ( [facility] 07/30/[place] 16:31) Final results Test Result Flag Units (Reference) PHOSPHORUS 4.0 MG/DL (2.5 - 4.5)PT/PTT: (LUISANA: 07/30/2020 15:30) ( [facility] 07/30/2020 16:07) Final results Test Result Flag Units (Reference) PROTIME 12.6 SECONDS (11.0 - 15.5) INR 0.93 (0.93 - 1.23) PTT 26.8 SECONDS (24.8 - 36.7) \\BLDo\\INR INTERPRETATION\\BLDx\\ Therapeutic range for Coumadin andrelated oral anticoagulants. -International Normalized Ratio (INR): 2.0 - 3.0 for VenousThrombosis, Pulmonary Embolus, Tissue heart valves, Acute RI Atrial Fibrillation, Valvular heart diseaseand recurrent Systemic Embolism. -International Normalized Ratio (INR): 2.5 - 3.5 forMechanical Prosthetic valve.CT Abd PEL W/ IV Contrast Only: (LUISANA: 07/30/2020 15:35) ( [facility] 07/30/2020 17:43) In ProgressCT ABDReason(s): Abdominal PainTRANSPORTATION: WC IV? IV?(Yes) O2? Oxygen?(No) Ro Exam CT ABD //T// PELVIS W/ IV ONLY [address] [place] [address] PHONE: [phone] FAX: [phone] Name .................. : BASILIO Torres Acct Number.................. : [id number] ROOM. ................. : [facility] MR Number ................... : [id number] Stay type ............. : E/R Discharge Date......... ... : Admit Date ......... : 07/30/20 Admit Phys .................... : MICHELLE PA Date of ....... : 1980 Family Phys ................... : MITA ROCHE Phone .................. : [phone] Age ................................ : 40 5 Clinical Report - Physicians/Mid Levels [facility] Emergency Department [address] [place] [address] Phone #: ext- [phone] 07/30/2020 15:09 Patient: NI DIAZ Sex: F : 1980 Age: 40y Film# .................. .:[id number] Sex ................................. : F Unsigned transcriptions are preliminary reports and do not represent a medical or legal document CT ABD Reason(s): Abdominal Pain CT OF THE ABDOMEN AND PELVIS WITH CONTRAST: HISTORY: Abdominal pain. COMPARISON: None. FINDINGS: Lung bases: Clear. Liver: Normal contour. No acute or focal osseous abnormality. Biliary system: Cholecystectomy. Post cholecystectomy biliary ectasia. Pancreas: Normal. Spleen: Within normal limits. Adrenal glands: Unremarkable. Kidneys: Symmetric enhancement and normal contour. No mass, stone or hydronephrosis. Urinary bladder: Unremarkable. Pelvic organs: Status post hysterectomy. Bowel: No bowel obstruction. Prior surgical changes along the greater curvature of the stomach. Presumed jejunostomy feeding tube in stable and good position. Multiple small bowel anastomosis appear intact. Peritoneum: No free air or ascites. Page [address] 2 [place] [address] PHONE: [phone] FAX: [phone] Name .................. : BASILIO DAN Melissa Acct Number.................. : [id number] ROOM. ................. : TR-1B Number ................... : [id number] Stay type ............. : E/R Discharge Date......... ... : Admit Date ......... : 07/30/20 Admit Phys ........... ......... : MICHELLE SIMMONS Date of ....... : 1980 Family Phys ................... : MITA ROCHE Phone .................. : [phone] Age ................................ : 40 Film# .................. .:[id number] Sex ................................. : F Unsigned transcriptions are preliminary reports and do not represent a medical or legal document CT ABD Reason(s): Abdominal Pain 6 Clinical Report - Physicians/Mid Levels [facility] Emergency Department [address] [place] [address] Phone #: ext- [phone] 07/30/2020 15:09 Patient: NI DIAZ Sex: F : 1980 Age: 40y Lung snell: No adenopathy. Bones: No acute or suspicious osseous abnormality. Prior lower lumbar fusion. IMP RESSION: 1. No change. No acute findings in the abdomen or pelvis. 2. Stable postoperative findings in the stomach, small bowel and unchanged feeding tube. While performing the above CT examination, radiation dose reduction was accomplished utilizing automated exposure control, adjusting of the mA and kV based on the patient's body size and/or the use of imperative reconstructive techniques. CT dose: mGycm Contrast agent in mL: 75 Isovue 370 Method of administration: Intravenous Electronically Reviewed and Signed By RIDGE SIGNDATE, APM Transcribe Initials: BECK , Transcribe Date: 07/30/20 17:38, Dictation Date: <<REPDIST>> Page 2 of 2.PROGRESS AND PROCEDURESCourse of Care: 19:14 Jul 30 2020. Evaluation after observation and results of tests back. (Discussedcase with Hospitalist Carlitos Kruger SHAREPOINT ENGINEER and he feels pt should be transferred, [facility] and pain is better after 50mcg Fentanyl, pt will return of s/s worsen.). Patient and spouse counseled in person regarding the patient's stable condition, test results, diagnosis and need for follow-up. Patient and spouse agrees with plan of care. 19:15 Jul 30 2020. Disposition: Discharged home in good and improved condition (19:16 Jul 30 2020).CLINICAL IMPRESSION Chronic generalized abdominal pain. (Gastroparesis). Chronic gastroparesis. No diabetes. 7 Clinical Report - Physicians/Mid Levels [facility] Emergency Department [address] [place] [address] Phone #: ext- [phone] 07/30/2020 15:09 [id number] Sex[facility] F : 1980 Age: 40yINSTRUCTIONS Warnings: GENERAL WARNINGS: Return or contact your physician immediately if your condition worsens or changes unexpectedly, if not improving as expected, or if other problems arise. SPECIFICALLY, return if you develop fever, the inability to keep fluids down, blood in vomitus or blood in diarrhea; or if there is no improvement in the pain. Your Current Medications: Your current home medications have been reviewed. CONTINUE TAKING THE FOLLOWING MEDICATIONS: Ambien Oral : 7.5 daily, prn, at bedtime, via J tube. Benadryl IV 50mg QDAY for nausea* : 2x a day. Carafate Oral : 1 gm q4h, via J tube. Creon Oral : Capsule Delayed Release Particles [id number] unit, 1 capsule 4x a day, J tube. FLUoxetine HCl Oral : 20 mg daily, via J tube. Lovenox Subcutaneous : Solution 80 mg/0.8mL, 70 mg 2x a day. Ondansetron HCl Injection : 8 mg IVP q8h, prn. oxyCODONE HCl Oral : 100/5 ml; 1ML 4x a day, prn, via J tube. Protonix Intravenous : Solution Reconstituted 40 mg, 2x a day. Tylenol Oral : prn. Follow-up: Follow up with your doctor Saturday if not better. Reason for referral: evaluation and treatment. Summary of care provided to patient. Understanding of the discharge instructions verbalized by patient and family.(Electronically signed by TROY Rosa 07/31/2020 17:29) Name Value Range Interpretation Code Description Data Sumaya rce(s) Supporting Document(s) ID Date Data Source [id number] 07/31/2020 04:40:00 PM EDT [facility] Name Value Range Interpretation Code Description Data Sumaya rce(s) Supporting Document(s) Procalcitonin <0.05 ng/ml 0.00-0.50 Normal (applies to non-numeric r esults) [facility] PCT Concentration: <= 0.5 ng/mLInterpre tation: Systemic infection (sepsis) is not likely. Local bacterial infection is possible.Risk or options for further action:Low risk for progression to severe systemic infection (severe sepsis/septic shock).Caution: PCT levels below 0.5 ng/mL do not exclude an infection, because localized infections (without systemicsigns) may be associated with such low levels.PCT Concentration: 0.5-2 ng/mLInterpretation: Systemic infection (sepsis) is possible, butother condictions are know to elevate PCT as well. Risk or options for further action:Moderate risk for p rogression to severe systemic infection(severe sepsis/septic shock). The patient should be closelymonitored both clinically and by re-assessing PCT within6-24 hours. PCT Concentration: >2 ng/mLInterpretation: Systemic infection (sepsis) is likely, unless other causes are known.Risk or options for further action: High risk for progression to severe systemic infection(severe sepsis/septic shock).PCT Concentration >= 10 ng/mLInterpretation: Important systemic inflammatory response, almost exclusively due to severe bacterial sepsis or septic shock.Risk or options for further action:High likelihood of sepsis or septic shockThe above 1 analytes were performed by [facility] [address], ,[place] [address] ID Date Data Source [id number] 07/31/2020 04:29:00 PM EDT [facility] Name Value Range Interpretation Code Description Data Sumaya rce(s) Supporting Document(s) AST 20 IU/L 15-37 Normal (applies to non-numeric resul ts) [facility] Sulfasalazine and sulfapyridine have the potential to falsely depressAspartate Aminotransferase results. Baseline values before medication administration are recommended. ALT 48 IU/L 13-56 Normal (applies to non-numeric resul ts) [facility] Sulfasalazine and sulfapyridine have the potential to falsely depressAlanine Aminotransferase results. Baseline values before medication administration are recommended. Alkaline Phosphatase 151 mIU/ml 50-136 Above high normal [facility] Total Bilirubin 0.40 mg/dl 0.20-1.00 Normal (applies to non-numeric results) [facility] Blood Urea Nitrogen 8 mg/dl 7-18 Normal (applies to non-nume zaina results) [facility] Creatinine 0.53 mg/dl 0.51-0.95 Normal (applies to non-numeric resul ts) [facility] N-Acetylcysteine (NAC) and Metamizole lemus ve the potential to falselydepress Creatinine results. Baseline values before medication adminstration are recommended. Patients undergoing treatment with phenindione will have falselydepressed results. Patients on phenindione therapy should be tested with an alternativeCREA method.Toxic levels of acetaminophen may lead to falsely depressed results forpatient samples. Glomerular Filtration Rate >90.00 mL/min/1.73m2 [facility] GFR Reference Ranges:Normal Function or Mild Renal Disease,if clinically at risk:>or= 60Moderately decreased:30 - 59Severely decreased:15 - 29Renal Failure:<15 Please note that the MDRD equation requires an additional adjustment forAfrican-Americans (multiply the GFR result by 1.210).Glomarular Filtration Rate (GFR) is estimated based on the MDRDequation, which assumes a steady state for creatinine ([employer] Int Med 139/2 137-149, 2003), as recommended by the Nationaldney Disease Education Program in conjunction with the National Institutes of Health and the National KidneyFoundation. The [place] method used in calculating this result is traceable to IDLA standards. Glucose 106 mg/dl 70-110 Normal (applies to non-numeric resul ts) [facility] Sulfasalazine has the potential to false ly depress Glucose results. Sulfapyridine has the potential to falsely elevate Glucose results. Baseline values before medication administration are recommended. Calcium 8.9 mg/dl 8.5-10.1 Normal (applies to non-numeric resul ts) [facility] Total Protein 6.7 g/dl 6.4-8.2 Normal (applies to non-numeric re sults) [facility] Albumin 3.6 g/dl 3.4-5.0 Normal (applies to non-numeric resul ts) [facility] Sodium 140 mEq/L 136-145 Normal (applies to non-numeric resul ts) [facility] Potassium 3.8 mEq/L 3.5-5.1 Normal (applies to non-numeric resul ts) [facility] Chloride 110.0 mEq/L 98.0-107.0 Above high normal [facility] Anion Gap 8.8 [facility] Carbon Dioxide 25.0 mMol/L 21.0-32.0 Normal (applies to non-numeric results) [facility] The above 16 analytes were performed by [facility] [email or web address] Laine Keenan, ,[facility] [place] [address] ID Date Data Source [id number] 07/31/2020 04:29:00 PM EDT [facility] Name Value Range Interpretation Code Description Data Sumaya rce(s) Supporting Document(s) Lipase 125 IU/L [id number] Normal (applies to non-numeric resul ts) [facility] The above 1 analytes were performed by [facility] [id number] Laine Keenan, ,[place] [address] ID Date Data Source [id number] 07/31/2020 04:29:00 PM EDT [facility] Name Value Range Interpretation Code Description Data Sumaya rce(s) Supporting Document(s) C-Reactive Protein (Non-Cardiac) <2.90 mg/L 0.00-3.00 Normal (applies to non- numeric results) [facility] The above 1 analytes were performed by [facility] [id number] Laine Keenan, ,[place] [address] ID Date Data Source [id number] 07/31/2020 04:14:00 PM EDT [facility] Name Value Range Interpretation Code Description Data Sumaya rce(s) Supporting Document(s) WBC 6.62 x1000/ul 4.80-10.00 Normal (applies to non-numeric re sults) [facility] RBC 3.77 x1Mil/ul 4.20-5.40 Below low normal [facility] Hemoglobin 9.1 g/dl 12.0-16.0 Below low normal [facility] Hematocrit 31.1 % 37.0-47.0 Below low normal [facility] MCV 82.5 fL 81.0-99.0 Normal (applies to non-numeric resul ts) [facility] MCH 24.1 pg 27.0-31.0 Below low normal [facility] MCHC 29.3 g/dl 32.2-37.0 Below low normal [facility] RDW 17.7 % 11.5-14.5 Above high normal [facility] Platelet Count 487 x1000/ul 130-400 Above high normal [facility] MPV 9.4 fL 9.4-12.4 Normal (applies to non-numeric resul ts) [facility] Neutrophils 80.2 % 40.0-74.0 Above high normal [facility] Lymphocytes 13.3 % 19.0-48.0 Below low normal [facility] Monocytes 5.1 % 3.4-9.0 Normal (applies to non-numeric resul ts) [facility] Eosinophils 0.3 % 0.0-7.0 Normal (applies to non-numeric resu lts) [facility] Basophils 0.9 % 0.0-2.0 Normal (applies to non-numeric resul ts) [facility] Immature Granulocytes 0.2 % 0.0-0.5 Normal (applies to non-nu meric results) [facility] Nucleated RBCs 0.00 % 0.00-0.20 Normal (applies to non-numeric r esults) [facility] Abs. Neutrophils 5.31 x1000/ul 1.92-8.31 Normal (applies to non-numeric results) [facility] Abs. Lymphocyte 0.88 x1000/ul 1.20-3.70 Below low normal [facility] Abs. Monocytes 0.34 x1000/ul 0.14-0.97 Normal (applies to non-nu meric results) [facility] Abs. Eosinophils 0.02 x1000/ul 0.00-0.76 Normal (applie s to non-numeric results) [facility] Abs. Basophils 0.06 x1000/ul 0.00-0.22 Normal (applies to non-n umeric results) [facility] Abs. Immature Gran. 0.01 x1000/ul 0.00-0.02 Normal (appl ies to non-numeric results) [facility] Abs. Nucleated RBCs 0.00 x1000/ul 0.00-0.02 Normal (appl ies to non-numeric results) [facility] The above 24 analytes were performed by [facility] [email or web address] Laine Keenan,[facility] [id number] [id number] ID Date Data Source [id number] 07/31/2020 05:17:00 AM EDT [facility] 1 OrderSheet [facility] Emergency Department [address] [place] [address] Phone #: [phone] yij- [phone] 07/31/2020 05:13 [id number] Sex: F : 1980 Age: 40yWEIGHT:68.0 kg (S) HEIGHT:67 inches (S) BMI:23.5ALLERGIES: Levaquin, NSAID, Sulfa AntibioticsCHIEF COMPLAINT: abdominal pain, vomiting, nausea, diarrhea, abdominal pain, vomiting, cramps, nauseaDIAGNOSIS: Abdominal pain, Abdominal pain, Anemia, VomitingLAB ORDERSOrder Description Priority Entered Acknowledged InitialedBlood Culture STAT 05:44 07/31/2020 06:12 Michelle,q10m X2 (Sched Cheri Lai R.N.05:44 07/31/2020) Physician;Blood Culture STAT 05:44 07/31/2020 06:12 Michelle,q10m X2 (Sched Cheri Lai R.N.05:54 07/31/2020) Physician;CMP STAT 05:44 07/31/2020 06:12 Cheri Martinez R.N. Physician;CBC w Diff STAT 05:44 07/31/2020 06:12 Cheri Martinez R.N. Physician;Lipase STAT 05:44 07/31/2020 06:12 Cheri Martinez R.N. Physician;Lactic Acid STAT 05:44 07/31/2020 06:12 Cheri Martinez R.N. Physician;Urinalysis (Clean STAT 05:44 07/31/2020 Ack'd: 06:12 09:51 CarolinaJohn ovalles) Joelle Leonardo R.N. Physician; R.N.Sed. Rate STAT 05:47 07/31/2020 06:12 Cheri Martinez R.N. Physician;CRP STAT 05:47 07/31/2020 06:12 Cheri Martinez R.N. Physician;DIAGNOSTIC STUDY ORDERSOrder Description Priority Entered Acknowledged Initialed 2 OrderSheet [facility] Emergency Department [address] [place] [address] Phone #: ext- [phone] 07/31/2020 05:13 Patient: NI DIAZ Sex: F : 1980 Age: 40yCT ABD PEL W/O STAT 05:44 07/31/2020 Ack'd: 06:12 06:32 Melarayuniel,Oral W/O IV Joelle Leonardo R.N.Contrast Physician; R.N.(Oxygen?(No))(IV?(Yes)) NOTES: left sided Reason for Study: Abdominal PainMEDICATION/IV/DRIP/FLUID ORDERSOrder Description Priority Entered Acknowledged InitialedDilaudid IVP 1 mg 05:47 07/31/2020 06:15 Michelle(HIGH ALERT Cheri Lai RGuanakitoMEDICATION) Physician;Phenergan IVP 05:47 07/31/2020 06:14 Michelle,12.5mg X1 dose: Cheri Lai RCarmeloNCarmelo12.5 mg (NOW x1, Physician;HIGH ALERTMEDICATION)IV NS : 200 mL/hr 05:47 07/31/2020 06:15 Michelle,(NOW) Cheri Lia R.N. Physician;Dilaudid IVP 1 mg 06:34 07/31/2020 06:45 Michelle(HIGH ALERT Cheri Lai RCarmeloNCarmeloMEDICATION) Physician;Ativan IVP 1 mg 07:34 07/31/2020 07:40 Landon(HIGH ALERT Alec Castrejon RCarmeloNCarmeloMEDICATION, Physician;NOW) Reason for ordering with alerts: Benefits outweigh risks -- 07:34 07/31/2020 Alec Calderón PhysicianfentaNYL IVP 25 08:57 07/31/2020 Cancelled: Wrong Order 08:57 apolinar Navarrete (NOW x1, Lucía Navarrete R.N.HIGH ALERT R.NCarmelo; Verbal orderMEDICATION) per; Cheri Burris PhysicianfentaNYL IVP 25 08:58 07/31/2020 09:06 apolinar Navarrete (NOW x1, Lucía Navarrete R.N.HIGH ALERT R.NCarmelo; Verbal orderMEDICATION) per; Alec Calderón PhysicianDilaudid IVP 1 mg 09:57 07/31/2020 10:05 Landon(HIGH ALERT Alec Castrejon R.N.MEDICATION) Physician; 3 OrderSheet [facility] Emergency Department [address] [place] [address] Phone #: ext- [phone] 07/31/2020 05:13 Patient: NI DIAZ Sex: F : 1980 Age: 40yPhenergan IV 12.5 09:57 07/31/2020 10:07 mg Landon (HIGH ALERT Alec Castrejon R.N.MEDICATION, Physician;NOW)GENERAL ORDERSOrder Description Priority Entered Acknowledged InitialedTransfer: (Transfer 10:21 07/31/2020 10:22 [facility];Soha[facility] byambulance as perDr. Henning(AcceptingHospitalist) -07/31/20 09:55)[Electronically signed by Cheri Burris Physician (06:50 07/31/2020)][Electronically signed by Lucía Navarrete R.N. (11:01 07/31/2020)][Electronically signed by Alec Calderón Physician (14:41 07/31/2020)][Electronically locked by Lucía Navarrete R.N. (11:01 07/31/2020)] Name Value Range Interpretation Code Description Data Sumaya rce(s) Supporting Document(s) ID Date Data Source [id number] 07/31/2020 05:17:00 AM EDT [facility] 1 Medication Reconciliation Report [facility] Emergency Department [address] [place] [address] Phone #: ext- [phone] 07/31/2020 05:13 Patient: NI DIAZ Sex: F : 1980 Age: 40yWeight: 68.0 kgHeight/Length: 67 in.BMI: 23.5ALLERGIES: Levaquin, NSAID, Sulfa AntibioticsThe patient's Home Medications are listed below:THE FOLLOWING MEDICATIONS NEED TO BE RECONCILED: Ambien Oral 7.5, daily, via J tube, prn,at bedtime Benadryl IV 50mg QDAY for nausea, 2x a day Carafate Oral 1 gm, q4h, via J tube Creon Oral (6614-8471 unit) 1 capsule, 4x a day, J tube FLUoxetine HCl Oral 20 mg, daily, via J tube Lovenox Subcutaneous (80 mg/0.8mL) 70 mg, 2x a day Ondansetron HCl Injection 8 mg IVP, q8h, prn oxyCODONE HCl Oral 100/5 ml; 1ML, 4x a day, via J tube, prn Protonix Intravenous (40 mg), 2x a day Tylenol Oral, prnThe source(s) of the original Home Medication information:Not obtained.The following Medications were given to the patient in the Emergency Department:PHENERGAN [IVP] IVP 12.5 mg, administered: 07/31/2020 6:09:00 AMDilaudid [IVP] IVP 1 mg, administered: 07/31/2020 6:10:00 AM 2 Medication Reconciliation Report [facility] Emergency Department [address] [place] [address] Phone #: ext- [phone] 07/31/2020 05:13 Patient: NI DIAZ Sex: F : 1980 Age: 40yIV NS IV Fluids bolus 0, then 200 mL/hr, administered: 1 6:10:00 AMDilaudid [IVP] IVP 1 mg, administered: 07/31/2020 6:45:00 AMAtivan [IVP] IVP 1 mg diluted in NS 10 mL, administered: 07/31/2020 7:38:00 AMFentanyl [IVP] IVP 25 mcg diluted in NS 10 mL, administered: 07/31/2020 9:03:00 AMDilaudid [IVP] IVP 1 mg diluted in NS 10 mL, administered: 07/31/2020 10:02:00 AMPHENERGAN [IVP] IVP 12.5 mg diluted in NS 10 mL, administered: 07/31/2020 10:07:00 AMThe following Medications were prescribed to the patient:None. Name Value Range Interpretation Code Description Data Sumaya rce(s) Supporting Document(s) ID Date Data Source [id number] 07/31/2020 05:17:00 AM EDT [facility] 1 Medication Administration Record [facility] Emergency Department [address] [place] [address] Phone #: ext- [phone] 07/31/2020 05:13 Patient: NI DIAZ Sex: F : 1980 Age: 40yWeight: 68.0 kgHeight/Length: 67 inBMI: 23.5ALLERGIES: Levaquin, NSAID, Sulfa Antibiotics Date/Time Medication Administered Medication OrderedGiven DILAUDID [IVP] (HYDROMORPHONE Dilaudid IVP 1 mg (HIGH ALERT06:10 07/31/2020 HCL) MEDICATION)Melaragno, Jeolle, R.N. Dose: 1 mg IVP Site: #1 right chestGiven PHENERGAN [IVP] (PROMETHAZINE Phenergan IVP 12.5mg X1 dose:06:09 07/31/2020 HCL) 12.5 mg (NOW x1, HIGH ALERTJoelle Martinez R.N. Dose: 12.5 mg IVP MEDICATION) Site: #1 right chestStart IV NS IV NS : 200 mL/hr (NOW)06:10 07/31/2020 Dose: IV FluidsJoelle Martinez R.N. Rate: 200 mL/hr---- Dispensed: 1000 mL bagContinued Upon Transfer Site: #1 right chest11:00 07/31/2020Lucía Navarrete R.N.Given DILAUDID [IVP] (HYDROMORPHONE Dilaudid IVP 1 mg (HIGH ALERT06:45 07/31/2020 HCL) MEDICATION)Joelle Martinez R.N. Dose: 1 mg IVP Site: #1 right chestGiven ATIVAN [IVP] (LORAZEPAM) Ativan IVP 1 mg (HIGH ALERT07:38 07/31/2020 Dose: 1 mg IVP MEDICATION, NOW)Lucía Navarrete R.N. In: NS 10 mL Site: #1 right chestGiven FENTANYL [IVP] fentaNYL IVP 25 mcg (NOW x1,09:03 07/31/2020 Dose: 25 mcg IVP HIGH ALERT MEDICATION)uLcía Navarrete R.N. In: NS 10 mL Site: #1 right chestGiven DILAUDID [IVP] (HYDROMORPHONE Dilaudid IVP 1 mg (HIGH ALERT10:02 07/31/2020 HCL) MEDICATION)Lucía Navarrete R.N. Dose: 1 mg IVP In: NS 10 mL Site: #1 right chestGiven PHENERGAN [IVP] (PROMETHAZINE Phenergan IV 12.5 mg (HIGH10:07 07/31/2020 HCL) ALERT MEDICATION, NOW)Lucía Navarrete R.N. Dose: 12.5 mg IVP In: NS 10 mL Site: #1 right chest Name Value Range Interpretation Code Description Data Sumaya rce(s) Supporting Document(s) ID Date Data Source [id number] 07/31/2020 05:17:00 AM EDT [facility] 1 General Instructions [facility] Emergency Department [address] [place] [address] Phone #: [phone] ext- [phone] 07/31/2020 05:13 Patient: NI DIAZ Sex: F : 1980 Age: 40yAcute left upper quadrant and left lower quadrant abdominal pain.(Electronically signed by Cheri Burris, Physician 07/31/2020 06:50)Acute epigastric and periumbilical abdominal pain.Intractable vomiting with nausea and volume depletion.Acute iron deficiency anemia from chronic blood loss, hypochromic anemia and anemia associated withchronic disease (S/P gastric bypass).(Chronic malnutrition / malabsorption due to gastric bypass (requires TPN and J-tube feedings)).(Electronically signed by Alec Calderón, Physician 07/31/2020 14:41) Name Value Range Interpretation Code Description Data Sumaya rce(s) Supporting Document(s) ID Date Data Source [id number] 07/31/2020 05:17:00 AM EDT [facility] 1 Clinical Report - Nurses [facility] Emergency Department [address] [place] [address] Phone #: ext- [phone] 07/31/2020 05:13 Patient: NI DIAZ Sex: F : 1980 Age: 40yTRIAGEArrived by private vehicle. Historian: patient. Accompanied by family.Acuity: LEVEL 3.Chief Complaint: ABDOMINAL PAIN and VOMITING.Alert. No acute distress.This started yesterday. ( Patient reports yesterday she had a sudden onset of abdominal pain withvomiting. Pt reports she was seen here last night for it and they wanted to transfer here to another facilitybut she refused. Pt states she has not gotten better since. Pt reports LUQ pain. Pt unsure how many timesshe has vomited and states she is on TPN. Pt reports "some dirrhea". Pt denies chills or fevers.). Thepatient has had nausea, vomiting, diarrhea and abdominal pain.Treatment RAIL BENDER:None. --05:19 07/31/20 Joelle Martinez R.N.05:14 07/31/20. BP: 136/67. MAP: 90. HR: 92. RR: 20. O2 saturation: 100%. Temp: 97.9 F. Pain levelnow: 06/30. --05:19 07/31/20 Joelle Martinez R.N.Weight: 68 kg stated. Height/Length: 67 inches Per Patient. BMI: 23.5. --05:14 07/31/20 Joelle Martinez R.N.MedicationsAmbien Oral 7.5, daily as needed, at bedtime, via J tube. Benadryl IV 50mg QDAY for nausea, 2x a day. Carafate Oral 1 gm, q4h, via J tube. Creon Oral (Capsule Delayed Release Particles 9369-0245 unit) 1 capsule, 4x a day, J tube. FLUoxetine HCl Oral 20 mg, daily, via J tube. Lovenox Subcutaneous (Solution 80 mg/0.8mL) 70 mg, 2x a day. Ondansetron HCl Injection 8 mg IVP, q8h as needed. oxyCODONE HCl Oral 100/5 ml; 1ML, 4x a day as needed, via J tube. Protonix Intravenous (Solution Reconstituted 40 mg), 2x a day. Tylenol Oral, as needed. --05:16 07/31/20 Joelle Martinez R.N.AllergiesLevaquin.(hives)NSAID.Sulfa Antibiotics.(Anaphylaxis) --05:16 07/31/20 Joelle Martinez R.N.PROBLEMS:Gastric ulcer. 2 Clinical Report - Nurses [facility] Emergency Department [address] [place] [address] Phone #: ext- [phone] 07/31/2020 05:13 [id number] Sex[facility] F : 1980 Age: 40yFever.Constipation.GI Disease.GI Bleeding.Gastroparesis.Back Injury.Anemia.Abdominal Pain.Cellulitis.Back Pain.Sepsis (disorder).Respiratory Distress.Pulmonary Embolism.UTI - Urinary Tract Infection.Status Epilepticus.Sinus Tachycardia.Lung Disease.Hypoxia.Hypokalemia.Other Disease.Malabsorption syndrome. --05:17 07/31/20 Joelle Martinez R.N.ADDITIONAL SURGERIES:Bowel resection.Bowel Resection [2016].Cholecystectomy.Gastric bypass.Gastric bypass reversal [08/2019].Gastric Resection [2008].GI bleed clipping.Hysterectomy.J-Tube placement.Life port removed.Lifeport [10/2017].Portacath left chest.Nadege-en-Y gastrojejunostomy [2009].Spinal fusion.Spinal fusion. --05:17 07/31/20 Joelle Martinez R.N.HistoryPAST MEDICAL HX: Immunizations: up-to-date. Has had a hysterectomy. Last oral intake by patientwas (TPN).SOCIAL HX: Never smoker. No alcohol use or drug use. The patient was offered HIV testing butdeclined. Patient education was provided. The patient was offered hepatitis C testing but declined. Patient 3 Clinical Report - Nurses [facility] Emergency Department [address] [place] [address] Phone #: ext- [phone] 07/31/2020 05:13 Patient: NI DIAZ [facility]#: [id number] Sex: F : 1980 Age: 40y education was provided. The patient has not traveled outside the [place] Infectious disease exposure: No infectious disease exposure. Patient is a known carrier of MRSA. Patient is not a known carrier of tuberculosis, hepatitis, HIV, VRE or CRE. SELF HARM ASSESSMENT: Self harm assessment was performed. The patient answered "no" to the question(s) "Have you recently felt down, depressed, or hopeless?", "Do you have thoughts of harming or killing yourself?" and "Do you have a plan for harming or killing yourself?". ABUSE ASSESSMENT: Abuse assessment. The patient had positive responses to the question(s) "Do you feel safe in your home?", "Are you afraid to go home?" and "Has anyone hurt you or threatened to hurt you?". Abuse denied. NUTRITIONAL RISK ASSESSMENT: The nutritional risk assessment revealed no deficiencies. FUNCTIONAL ASSESSMENT: Functional assessment: no impairments noted. LEARNING NEEDS ASSESSMENT: The learning needs assessment revealed no barriers. FALL RISK ASSESSMENT: Fall risk assessment completed. No risk factors identified. SKIN INTEGRITY ASSESSMENT: Skin integrity risk assessment completed. No skin integrity risk identified. --05:07/31/20 Joelle Martinez R.N. FAMILY HX: Negative - denies family medical history. --05:56 07/31/20 Cheri Burris, Physician. Interventions Identification band on patient. To treatment room. --05:07/31/20 Joelle Martinez R.N.PHYSICAL ASSESSMENTAmbulatory to room. Patient gowned.GENERAL / NEURO / PSYCH: Alert. Oriented X 4. Appears in no acute distress. Appears in pain.HEENT: Mucous membranes are pink.RESPIRATORY: Respirations not labored. Breath sounds within normal limits.CVS: Normal sinus rhythm noted. Cardiac rhythm: normal sinus rhythm. Capillary refill less than 2seconds.GI / : The patient has had nausea. Emesis noted. Abdomen soft and nontender. Bowel soundswithin normal limits. ( LUQ pain).SKIN: Skin is warm and dry. --05:20 07/31/20 Joelle Martinez R.N. GI / : ( J-peg). --05:36 07/31/20 Joelle Martinez R.N.NURSING PROGRESS NOTESMonitoring of patient in place. Patient gowned. Reassurance given. Two patient identifiers checked.Call light placed in reach. Side rails up x 2. Bed placed in lowest position. Brakes of bed on. --05:20 4 Clinical Report - Nurses [facility] Emergency Department [address] [place] [address] Phone #: ext- [phone] 07/31/2020 05:13 ------ Patient: NI DIAZ Sex: F : 1980 Age: 40y1 Joelle Martinez R.N.06:08 07/31/2020 Site #1 accessed indwelling [place] in the right chest using a 20g non-coring needle; 1attempt. Good blood return noted. Site prepped with alcohol. Blood drawn: rainbow set. Sent to the lab.--06:14 07/31/20 Joelle Martinez R.N.06:09 07/31/2020 PHENERGAN (Promethazine HCl) IVP 12.5 mg given via site #1. Allergies verified andcon firmed 5 rights. IV patency established. IV site checked: no pain, redness, or swelling. IV flushedthoroughly pre- and post-medication administration. IVP given by RN. Information reviewed with patientincluding sedative warning. Verbalizes understanding. --06:14 07/31/20 Joelle Martinez R.N.06:10 07/31/2020 Dilaudid (HYDROmorphone HCl) IVP 1 mg given via site #1. Allergies verified andconfirmed 5 rights. IV patency established. IV site checked: no pain, redness, or swelling. IV flushedthoroughly pre- and post-medication administration. IVP given by RN. Information reviewed with patientincluding se dative warning. Verbalizes understanding. --06:15 07/31/20 Joelle Martinez R.N.06:07/31/2020 Started bag #1 1000 mL IV Fluids IV NS; at 200 mL/hr via site #1 via IV pump. Allergiesverified and confirmed 5 rights. IV patency established. IV site checked: no pain, redness, or swelling. IVflushed thoroughly pre- and post-medication administration. Information reviewed with patient. Verbalizesunderstanding. --06:15 07/31/20 Joelle Martinez R.N.The patient is calm and resting quietly. --06:16 07/31/20 Joelle Martinez R.N.06:15 07/31/20. BP: 137/76. MAP: 96. HR: 93. RR: 16. O2 saturation: 100%. -- 06:16 07/31/20Joelle Martinez R.N.Patient transported to [place] by wheelchair with radiology asst. --06:31 07/31/20 Joelle Martinez R.N.Overall patient status- she states feels the same. --06:31 07/31/20 Joelle Martinez R.N.06:07/31/2020 PHENERGAN IVP Response: symptoms are the same. The patient feels the same.--06:32 07/31/20 Joelle Martinez R.N.06:25 07/31/2020 Dilaudid IVP Response: symptoms are the same. The patient feels the same. --06: Joelle Martinez R.N.06:45 07/31/2020 Dilaudid (HYDROmorphone HCl) IVP 1 mg given via site #1. Allergies verified andconfirmed 5 rights. IV patency established. IV site checked: no pain, redness, or swelling. IV flushedthoroughly pre- and post-medication administration. IVP given by RN. Information reviewed with patientincluding sedative warning. Verbalizes understanding. --06:45 07/31/20 Joelle Martinez R.N.06:52 07/31/20. BP: 130/76. MAP: 94. HR: 90. RR: 15. O2 saturation: 98%. Temp: 98.2 F. Pain level now:05/30. --06:53 07/31/20 Joelle Martinez R.N. 5 Clinical Report - Nurses [facility] Emergency Department [address] [place] [address] Phone #: ext- [phone] 07/31/2020 05:13 Patient: NI DIAZ Sex: F : 1980 Age: 40yThe patient is calm and resting quietly. --06:53 07/31/20 Joelle Martinez R.N.Care transferred and report given (STACIE Dia). --07:07 07/31/20 Joelle Martinez R.N.05:30 07/31/20. BP: 126/62. MAP: 83. HR: 83. RR: 23. O2 saturation: 100%. --07:33 07/31/20 Lucía Navarrete R.N.05:45 07/31/20. BP: 134/79. MAP: 97. HR: 74. RR: 19. O2 saturation: 100%. --07:33 07/31/20 Lucía Navarrete R.N.06:30 07/31/20. BP: 113/62. MAP: 79. HR: 92. RR: 15. O2 saturation: 98%. --07:34 07/31/20 Lucía Navarrete R.N.07:00 07/31/20. BP: 121/74. MAP: 89. HR: 87. RR: 18. O2 saturation: 95%. --07:34 07/31/20 Lucía Navarrete R.N.07:15 07/31/20. BP: 120/73. MAP: 88. HR: 95. RR: 22. O2 saturation: 99%. --07:34 07/31/20 Lucía Navarrete R.N.07:30 07/31/20. BP: 114/61. MAP: 78. HR: 85. RR: 20. O2 saturation: 96%. --07:34 07/31/20 Lucía Navarrete R.N.07:35 07/31/20. Pain level now 05/30. --07:35 07/31/20 Lucía Navarrete R.N.Reassessment acuity: LEVEL 3.Rounding: Pain: assessed pain level. Proximity of possessions / care items: call light within easy reach.Plug ins: assured IV pump plugged in; check ed status of equipment in use; located all cords, tubes, andlines to prevent fall hazard. Set expectations: advised patient of rounding protocol timing and asked if theyneeded anything else at this time. ( Pt states vomiting i better but still has pain/nausea; MD aware and willmedicate pt.).GI / : The patient reports nausea is still present. She reports abdominal pain is still present. Deniesvomiting. --07:35 07/31/20 Lucía Navarrete R.N.07:00 07/31/2020 Dilaudid IVP Response: no adverse reaction symptoms have improved the patient feelsbetter. --07:40 07/31/20 Lucía Navarrete R.N.07:38 07/31/2020 Ativan (LORazepam) IVP 1 mg given diluted in NS 10mL over 5 minute(s) via site #1.Allergies verified and confirmed 5 rights. IV patency established. IV site checked: no pain, redness, orswelling. IV flushed thoroughly pre- and post- medication administration. IVP given by RN. Informationreviewed with patient and spouse including reason for taking this medication, signs of allergic reaction,precautions and sedative warning. Verbalizes understanding. --07:40 07/31/20 Lucía Navarrete R.N.07:45 07/31/20. BP: 114/69. MAP: 84. HR: 86. RR: 19. O2 saturation: 96%. --07:53 07/31/20 Nicolas Navarrete Clinical Report - Nurses [facility] Emergency Department [address] [place] [address] Phone #: ext- [phone] 07/31/2020 05:13 Patient: NI DIAZ Sex: F : 1980 Age: 40yJennha, R.N.08:00 07/31/20. BP: 117/72. MAP: 87. HR: 93. RR: 18. O2 saturation: 96%. --08:09 07/31/20 Lucía Navarrete R.N.08:15 07/31/20. BP: 125/78. MAP: 93. HR: 85. RR: 20. O2 saturation: 97%. --08:19 07/31/20 Lucía Navarrete R.N.Reassessment acuity: LEVEL 3.Rounding: Proximity of possessions / care items: call light within easy reach. Plug ins: assured IV pumpplugged in; checked status of equipment in use; located all cords, tubes, and lines to prevent fall hazard.Set expectations: advised patient of rounding protocol timing and asked if they needed anything else at thistime. Reassessment after medication administered. No adverse reaction. She is sleeping. ( Pt PATRICIA huynh, awaiting to hear back from admitting hospital.).GI / : Denies vomiting. --08:21 07/31/20 Lucía Navarrete R.N.08:28 07/31/20. BP: 123/81. MAP: 95. HR: 82. RR: 19. O2 saturation: 97%. --08:28 07/31/20 Lucía Schreiber R.N.08:05 07/31/2020 Ativan IVP Response: no adverse reaction symptoms have improved the patient feelsbetter. --08:56 07/31/20 Lucía Navarrete R.N.09:03 07/31/2020 Fentanyl IVP 25 mcg given diluted in NS 10mL over 4 minute(s) via site #1. Allergiesverified and confirmed 5 rights. IV patency established. IV site checked: no pain, redness, or swelling. IVflushed thoroughly pre- and post-medication administration. IVP given by RN. Information reviewed withpatient and spouse including reason for taking this medication, signs of allergic reaction, precautions andsedative warning. Verbalizes understanding. --09:06 07/31/20 Lucía Navarrete R.N.08:45 07/31/20. BP: 138/88. MAP: 104. HR: 85. O2 saturation: 98%. --09:06 07/31/20 Lucía Navarrete R.N.09:00 07/31/20. BP: 119/72. MAP: 87. HR: 84. RR: 17. O2 saturation: 98%. --09:06 07/31/20 Lucía Navarrete R.N.Reassessment acuity: LEVEL 3.Rounding: Pain: assessed pain level. Proximity of possessions / care items: call light within easy reach.Plug ins: assured IV pump plugged in; checked status of equipment in use; located all cords, tubes, andlines to prevent fall hazard. Set expectations: advised patient of rounding protocol timing and asked if theyneeded anything else at this time. Patient not comfortable.GI / : The patient reports abdominal pain is still present and worsening (MD aware and pt medicated).Denies nausea or vomiting. --09:07 07/31/20 Lucía Navarrete R.N. 7 Clinical Report - Nurses [facility] Emergency Department [address] [place] [address] Phone #: ext- [phone] 07/31/2020 05:13 [id number] Sex[facility] : 1980 Age: 40y09:25 07/31/20. BP: 119/72. MAP: 87. HR: 82. RR: 20. O2 saturation: 100%. --09:28 07/31/20 Lucía Navarrete R.N.09:15 07/31/20. BP: 136/67. MAP: 90. HR: 85. RR: 18. O2 saturation: 100%. --09:28 07/31/20 Lucía Navarrete R.N.Patient ID band checked for patient name and birthdate: patient confirmed. Instructions provided to collectclean catch urine and patient verbalized understanding. Clean catch urine collected; sample sent to lab forurinalysis. Specimen labeled in the presence of the patient. --09:52 07/31/20 Lucía Navarrete R.N.09:30 07/31/2020 Fentanyl IVP Response: no adverse reaction symptoms are the same. The patient feelsthe same. ED physician notified. --10:07/31/20 Lucía Navarrete R.N.10:02 07/31/2020 Dilaudid (HYDROmorphone HCl) IVP 1 mg given diluted in NS 10mL over 4 minute(s)via site #1. Allergies verified and confirmed 5 rights. IV patency established. IV site checked: no pain,redness, or swelling. IV flushed thoroughly pre- and post-medication administration. IVP given by RN.Information reviewed with patient and spouse including reason for taking this medication, signs of allergicreaction, precautions and sedative warning. Verbalizes understanding. --10:05 07/31/20 Lucía Navarrete R.N.10:07 07/31/2020 PHENERGAN (Promethazine HCl) IVP 12.5 mg given diluted in NS 10mL over 4minute(s) via site #1. Allergies verified and confirmed 5 rights. IV patency established. IV site checked: nopain, redness, or swelling. IV flushed thoroughly pre- and post-medication administration. IVP given by RN.Information reviewed with patient and spouse including reason for taking this medication, signs of allergicreaction, precautions and sedative warning. Verbalizes understanding. --10:07 07/31/20 Lucía Navarrete R.N.Reassessment acuity: LEVEL 3.Rounding: Pain: assessed pain level. Position: states comfortable. Personal care / toileting: assisted withtoileting. Proximity of possessions / care items: call light within easy reach. Plug ins: assured IV pumpplugged in; checked status of equipment in use; located all cords, tubes, and lines to prevent fall hazard.Set expectations: advised patient of rounding protocol timing and asked if they needed anything else at thistime. The patient is calm. Overall patient status is the same- she states feels the same.GI / : The patient reports abdominal pain. Patient waiting for admit bed. --10:08 07/31/20 Lucía Navarrete R.N.10:00 07/31/20. BP: 114/70. MAP: 84. HR: 95. RR: 19. O2 saturation: 100%. --10:08 07/31/20 Lucía Navarrete R.N.10:09 07/31/20. Temp: 98.4 F (oral). --10:09 07/31/20 Lucía Navarrete R.N.10:15 07/31/20. BP: 130/77. MAP: 94. HR: 99. RR: 22. O2 saturation: 97%. --10:59 07/31/20 Lucía Navarrete R.N. 8 Clinical Report - Nurses [facility] Emergency Department [address] [place] [address] Phone #: ext- [phone] 07/31/2020 05:13 Patient: NI DIAZ Sex: F : 1980 Age: 40y 10:30 07/31/20. BP: 107/62. MAP: 77. HR: 98. RR: 17. O2 saturation: 97%. --10:59 07/31/20 Lucía Navarrete R.N. 10:40 07/31/2020 Dilaudid IVP Response: no adverse reaction pain is improving. Symptoms have improved the patient feels better. --11:00 07/31/20 Lucía Navarrete R.N. 10:45 07/31/2020 PHENERGAN IVP Response: no adverse reaction pain is improving. Symptoms have improved the patient feels better. --11:00 07/31/20 Caty Navarrete R.N. 11:00 07/31/2020 IV Fluids IV NS via IV site #1 Continued: upon transfer at the rate of 200 mL/hr. 200 mL remaining bag #1. IV patency established. IV site checked: no pain, redness, or swelling. IV flushed thoroughly. --11:01 07/31/20 Lucía Navarrete R.N.DISPOSITION / DISCHARGE Report was given to a nurse via a phone call. Report included information regarding patient's care and condition, vital signs and labs. Report included treatment information regarding medications given or pending and home medications; type and amount of IV fluids and medications infusing. All questions were answered. Report was acknowledged. (Leila Bridges RN). --10:20 07/31/20 Lucía Navarrete R.N. 10:50 07/31/20. BP: 107/64. MAP: 78. HR: 96. RR: 18. O2 saturation: 99% on room air. Temp: 98.5 F (oral). Pain level now: 03/30. --11:07/31/20 Lucía Navarrete R.N. Departure time: 11:07/31/2020. Condition at departure: stable. Transferred to [facility]. Visit overview, summary of care (CCDA), Emtala forms and Face Sheet provided to transport team, EMS and transfer facility via paper, fax and digital media. Transported via ambulance by EMS with monitor, IV and mask. Bed obtained and r ivelisse. Patient's personal items include, clothes, phone. --11:07/31/20 Lucía Navarrete R.N. 11:00 07/31/2020 Site #[address] upon transfer; patent, no pain and no signs of infection or infiltration. Good blood return present. Flushed with 10 mL saline; flushes easily. --11:00 07/31/20 Lucía Navarrete R.N.Locked/Released at 07/31/2020 11:01 by Lucía Navarrete R.N. Name Value Range Interpretation Code Description Data Sumaya rce(s) Supporting Document(s) ID Date Data Source [id number] 07/31/2020 05:17:00 AM EDT [facility] 1 Clinical Report - Physicians/Mid Levels [facility] Emergency Department [address] [place] [address] Phone #: ext- [phone] 07/31/2020 05:13 Patient: NI DIAZ Sex: F : 1980 Age: 40y Time Seen: 05:35 07/31/2020. Arrived- By private vehicle. Historian- patient.HISTORY OF PRESENT ILLNESS Chief Complaint: ABDOMINAL PAIN and VOMITING, DIARRHEA and NAUSEA. This started yesterday Had fever 101 yesterday morning. and is still present and now worse. It is described as "pain" and burning. No radiation. It is described as located in the left upper quadrant, left abdomen and left lower quadrant. At its maximum, severity described as 9 / 10. When seen in the E.D., severity described as 9 / 10. Modifying factors. Not worsened by anything. Not relieved by anything. The patient has had nausea and loss of appetite. She has had moderate, intermittent vomiting (burning foul smelling). The vomiting has occurred numerous times. She has had mild diarrhea (chronic). No additional abdominal pain. No recent travel. Similar symptoms previously. Patient has had similar symptoms several times. ( Never this bad per patient). Recent medical care: The patient was seen recently in the emergency department. ( In ER earlier mercedesight evaluated and recommended transfer. Patient refused.).REVIEW OF SYSTEMS The patient has had a hysterectomy. No constipation, black stools, hematemesis, difficulty with urination or pain with urination. No bloody stools, headache, sore throat, blurred vision or chest pain. No difficulty breathing, cough, skin rash or chills. Denies current . The patient has had fever and back pain but not had weight loss. All other systems reviewed and are negative.PAST HISTORY See nurses notes. Problems: Gastric ulcer. Fever. GI Bleeding. Gastroparesis. Back Injury. Anemia. Abdominal Pain. Cellulitis. Sepsis (disorder). Pulmonary Embolism. Sinus Tachycardia. 2 Clinical Report - Physicians/Mid Levels [facility] Emergency Department [address] [place] [address] Phone #: ext- [phone] 07/31/2020 05:13 Patient: NI DIAZ Sex: F : 1980 Age: 40y Hypoxia. Hypokalemia. Additional Surgeries: Bowel resection. Bowel Resection [2016]. Cholecystectomy. Gastric bypass. Gastric bypass reversal [08/2019]. Gastric Resection [2009]. GI bleed clipping. Hysterectomy. J-Tube placement. Life port removed. Lifeport [10/2017]. Portacath left chest. Ndaege-en-Y gastrojejunostomy [2009]. Spinal fusion. Spinal fusion. Medicat ions: Ambien Oral 7.5, daily as needed, at bedtime, via J tube. Benadryl IV 50mg QDAY for nausea, 2x a day. Carafate Oral 1 gm, q4h, via J tube. Creon Oral (Capsule Delayed Release Particles [id number] unit) 1 capsule, 4x a day, J tube. FLUoxetine HCl Oral 20 mg, daily, via J tube. Lovenox Subcutaneous (Solution 80 mg/0.8mL) 70 mg, 2x a day. Ondansetron HCl Injection 8 mg IVP, q8h as needed. oxyCODONE HCl Oral 100/5 ml; 1ML, 4x a day as needed, via J tube. Protonix Intravenous (Solution Reconstituted 40 mg), 2x a day. Tylenol Oral, as needed. Allergies: Levaquin.(hives) NSAID. Sulfa Antibiotics.(Anaphylaxis).SOCIAL HISTORY Never smoker. No alcohol use or drug use. No recent travel. She lives with spouse.FAMILY HISTORY Negative - denies family medical history.ADDITIONAL NOTES The nursing notes have been reviewed with agreement regarding the chief complaint, HPI, ROS, PMH and 3 Clinical Report - Physicians/Mid Levels [facility] Emergency Department [address] [place] [address] Phone #: [phone] 07/31/2020 05:13 Patient: NI DIAZ Sex: F : 1980 Age: 40y patient medications and allergies.PHYSICAL EXAM Vital Signs: 07/31/2020 05:14 BP: 136/67. MAP: 90. HR: 92. RR: 20. O2 saturation: 100%. Temp: 97.9 F. Pain level now: 9/10. Have been reviewed as normal. Blood pressure normal. Heart rate normal. Respiratory rate normal. Temperature normal. Oxygen saturation normal. Appearance: Alert. Oriented X3. Appears to be in pain. Patient in moderate distress. Eyes: Pupils equal, round and reactive to light. Eyes normal inspection. ENT: Ears normal. Nose normal. Pharynx normal. Neck: Normal inspection. Neck supple. CVS: Normal heart rate. Heart sounds normal. ([place]). Respiratory: No respiratory distress. Breath sounds normal. Chest nontender. Abdomen: Soft. Moderate tenderness in the left upper quadrant, left side of the abdomen and left lower quadrant with rebound tenderness present. Rebound tenderness. Abnormal bowel sounds: diminished. No organomegaly. Femoral pulses equal. Mass present. (Jtube present). Back: Normal inspection. Skin: Skin warm and dry. Pallor. No rash. Extremities: Extremities exhibit normal ROM. No lower extremity edema. Neuro: Oriented X 3. No motor deficit. No sensory deficit.PROGRESS AND PROCEDURES Course of Care: 05:59 Jul 31 2020. (Patient's history obtained and previous ER record reviewed. Exam completed. Patient had previously refused transfer. She will agree to it now. Has primarily gone to [facility] in past. Treatment plan discussed and agreed upon. [place] catheter accessed and IV saline started. IV Dilaudid and Phenergan 12.[address] abd/Pel without contrast.). 06:35 Jul 31 2020. Dilaudid given (1 mg IV). ED care transferred. Case discussed with with Dr Calderón. Assumed care. Brief hx: Will require transfer to [facility]. Tentative impression: Intractable left sided abdominal pain with nausea and vomiting. Expected disposition: transfer.CLINICAL IMPRESSION Acute left upper quadrant and left lower quadrant abdominal pain.(Electronically signed by Cheri Burris, Physician 07/31/2020 06:50) Time Seen: 07:11 07/31/2020. 4 Clinical Report - Physicians/Mid Levels [facility] Emergency Department [address] [place] [address] Phone #: ext- [phone] 07/31/2020 05:13 Patient: NI DIAZ Sex: F : 1980 Age: 40y Arrived- By private vehicle. Historian- patient. RETURN VISIT: recently seen in this ED by another ED physician within past 24 hours. Seen now for the same problem as before. Disposition decision: 09:55 07/31/2020.HISTORY OF PRESENT ILLNESS Chief Complaint: ABDOMINAL PAIN and VOMITING, NAUSEA and CRAMPS. It is described as "pain", sharp, stabbing, crampi ng and well localized and it is described as located in the upper abdomen and in the periumbilical area. This started yesterday and is still present and now worse. It was abrupt in onset and has been waxing/waning. When seen in the E.D., severity described as 9 / 10. Modifying factors- worsened by movement, walking, cough and deep breaths. The patient has had nausea, loss of appetite, moderate vomiting. The vomiting has occurred numerous times and diarrhea. No recent travel. Similar symptoms previously. Patient has had similar symptoms many times, chronically. Recent medical care: The patient was seen recently at this facility in the emergency department. ( seen here in ED yesterday and was discharged home.).REVIEW OF SYSTEMS No constipation, black stools, hematemesis, difficulty with urination or pain with urination. No urinary frequency, fever, headache, sore throat or blurred vision. No chest pain, difficulty breathing, cough, joint pain or skin rash. No chills or back pain. Denies current . The patient has had weight loss.PAST HISTORY Past history not negative. See nurses notes. Lung disease. GI disease. Other disease. Gastric ulcer / GI bleeding Fever Constipation Gastroparesis Back Injury Anemia Abdominal pain Cellulitis Back pain Sepsis Respiratory Distress Pulmonary Embolism UTI Status epilepticus Sinus tachycardia Hypoxia Malabsorption syndrome MRSA. 5 Clinical Report - Physicians/Mid Levels [facility] Emergency Department [address] [place] [address] Phone #: ext- [phone] 07/31/2020 05:13 Patient: NI DIAZ Sex: F : 1980 Age: 40y Surgeries: Bariatric surgery- gastric bypass. Bowel surgery (Bowel resecti on). Cholecystectomy. Had hysterectomy. (Gastric bypass reversal Gastric resection Clipping of GI bleed J-tube placement Lifeport placed / removed L chest Portacath Nadege-en-Y Gastrojejunostomy Spinal fusion).SOCIAL HISTORY Never smoker. No alcohol use or drug use. No recent travel.ADDITIONAL NOTES The nursing notes have been reviewed with agreement regarding the chief complaint, HPI, ROS, PMH and patient medications and allergies.PHYSICAL EXAM Vital Signs: 07/31/2020 07:00 BP: 121/74. MAP: 89. HR: 87. RR: 18. O2 saturation: 95%. 07/31/2020 06:52 BP: 130/76. MAP: 94. HR: 90. RR: 15. O2 saturation: 98%. Temp: 98.2 F. Pain level now: 05/30. Have been reviewed and appear to be correct. Blood pressure normal. Heart rate normal. Respiratory rate normal. Temperature normal. Oxygen saturation normal. Appearance: Alert. Oriented X3. Anxious. Appears to be in pain. Patient in severe distress. In distress. Eyes: Pupils equal, round and reactive to light. Eyes inspection not normal. Pale conjunctivae. ENT: Nose normal. Pharynx abnormal. Dry mucous membranes present. Neck: Normal inspection. Neck supple. CVS: Normal heart rate and rhythm. Heart sounds normal. Pulses normal. Respiratory: No respiratory distress. Painless inspiration. Breath sounds normal. Chest nontender. Abdomen: Soft. Severe tenderness in the upper abdomen, epigastric area and periumbilical area. Bowel sounds normal. No organomegaly. No mass. Tenderness present. (Functioning J- tube). Back: Normal inspection. Skin: Poor skin turgor. Skin warm and dry. Pallor. Abnormal skin color. No rash. Abnormal skin turgor. Extremities: Extremi ties exhibit normal ROM. No lower extremity edema. Neuro: Oriented X 3. No motor deficit. No sensory deficit.LABS, X-RAYS, AND EKG Laboratory Tests: Laboratory tests have been ordered, with results reviewed and considered in the medical decision making process. Blood Culture: (LUISANA: 07/31/2020 05:54) ( MsgRcvd 07/31/2020 07:15) Canceled Sed. Rate: (LUISANA: 07/31/2020 06:08) ( MsgRcvd 07/31/2020 06:58) Final results 6 Clinical Report - Physicians/Mid Levels [facility] Emergency Department [address] [place] [address] Phone #: ext- [phone] 07/31/2020 05:13 Patient: NI DIAZ Sex: F : 1980 Age: 40y Test Result Flag Units (Reference) SED RATE 16 mm/hr (0 - 20) SED RATE REENTER 16CRP: (LUISANA: 07/31/2020 06:08) ( MsgRcvd 07/31/2020 06:51) Final results Test Result Flag Units (Reference) CRP-HS 0.88 L MG/L (1.00 - 3.00) CDC/S HS-CRP CUT-OFF: RELATIVE RISK: <1.0 mg/LLow 1.0 - 3.0 mg/L Average >3.0 mg/LHigh Optimally, the average of HS-CRP results repeated two weeks apart should be used forrisk assessment.CMP: (LUISANA: 07/31/2020 06:08) ( MsgRcvd 07/31/2020 06:51) Final results Test Result Flag Units (Reference) COMPREHENSIVE METABOLIC PANEL COMPREHENSIVE METABOLIC PANEL SODIUM 136 mEq/L (134 - 153) POTASSIUM 4.2 mEq/L (3.6 - 5.0) CHLORIDE 101 mEq/L (98 - 107) CO2 23 MEQ/L (22 - 30) GLUCOSE 163 H MG/DL (65 - 110) BUN 11 MG/DL (7 - 21) CREATININE 0.6 L MG/DL (0.7 - 1.5) BUN/CREAT 18 (8 - 27) TOTAL PROTEIN 6.8 G/DL (6.3 - 8.2) ALBUMIN 4.4 G/DL (3.9 - 5.0) GLOBULIN 2.4 GM/DL (2.4 - 3.2) A/G RATIO 1.8 (0.8 - 2.0) CALCIUM 9.3 MG/DL (8.4 - 10.2) TOTAL BILI <0.7 MG/DL (0.2 - 1.3) ALKALINE PHOS 180 H U/L (38 - 126) SGOT/AST 30 U/L (5 - 40) SGPT/ALT 46 U/L (7 - 56) ANION GAP 12.0 mmol/L (8.0 - 16.0) AGE 40 yrs NON-AA GFR >60 mL/min AFR AMER GFR >60 mL/min Male GFR Interprentation 20-49 yrs >60 mL/min Tqngkf09-59 yrs >56 mL/min Normal 60-69 yrs >49 mL/min Normal 70-79yrs>42 mL/min Normal 80 and above >35 mL/min Normal Female GFRInterpretation 20-39 yrs >60 mL/min Normal 40-49 yrs >58 mL/minNormal 50-59 yrs >51 mL/min Normal 60-69 yrs >45 mL/min Htkdit06- 79 yrs >39 mL/min Normal 80 and above >32 mL/min NormalCBC w Diff: (LUISANA: 07/31/2020 06:08) ( MsgRcvd 07/31/2020 06:55) Final results Test Result Flag Units (Reference) CBC W/AUTOMATED DIFF COMPLETE BLOOD COUNT WBC 7.5 10/uL (4.2 - 11.0) RBC 4.07 L 10/uL (4.20 - 5.40) HEMOGLOBIN 9.6 L g/dL (12.0 - 16.0) HEMATOCRIT 32.3 L % (37.0 - 47.0) MCV 79.4 L fL (81.0 - 101) MCH 23.6 L pg (27.0 - 34.0) 7 Clinical Report - Physicians/Mid Levels [facility] Emergency Department [address] [place] [address] Phone #: ext- [phone] 07/31/2020 05:13 Patient: NI DIAZ Sex: F : 1980 Age: 40y MCHC 29.7 L g/dL (31.0 - 36.0) RDW 17.9 H % (11.5 - 14.5) PLATELETS 520 H 10/uL (150 - 450) MPV 9.0 fL (7.4 - 10.4) NEUT 83.8 H % (37.0 - 80.0) LYMPH 8.3 L % (25.0 - 40.0) MONO 3.3 % (3.0 - 8.0) EOS 3.6 % (0.0 - 7.0) BASO 0.7 % (0.0 - 2.5) %IG 0.3 H % (0.0 - 0.0) %NRBC 0.0 % (0.0 - 0.0) #NEUT 6.29 10/uL (2.00 - 6.90) #LYMPH 0.62 10/uL (0.60 - 3.40) #MONO 0.25 10/uL (0.00 - 0.90) #EOS 0.27 10/uL (0.00 - 0.70) #BASO 0.05 10/uL (0.00 - 0.20) #IG 0.02 10/uL (0.00 - 0.10) #NRBC 0.00 10/uL (0.00 - 0.00) MANUAL DIFF SEE BELOW SEGS 91 H % (37 - 80) %LYMPH 6 L % (25 - 40) %MONO 3 % (3 - 8) RBC MORPH SEE BELOW ANISO 1+ A (NORMAL: NONE MICRO 1+ A (NORMAL: NONE POIK 1+ A (NORMAL: NONE HYPO 2+ A (NORMAL: NONE { SICKLE CELL (NORMAL: NONE SEEN ) OVALOCYTES 1+ A (NORMAL: NONE HYPER NEUT 1+ A (NORMAL: NONE PLT EST INCREASED A (NORMAL: DELANO COMMENT: Lipase: (LUISANA: 07/31/2020 06:08) ( [facility] 07/31/2020 06:51) Final results Test Result Flag Units (Reference) LIPASE 33 U/L (13 - 60)Lactic Acid: (LUISANA: 07/31/2020 06:08) ( [facility] 07/31/2020 06:44) Final results Test Result Flag Units (Reference) LACTIC ACID 2.0 MMOL/L (0.2 - 2.2)CT ABD PEL W/O Oral W/O IV Contrast: (LUISANA: 07/31/2020 05:44) ( [facility] 07/31/2020 07:42)Final results Exam CT ABD //T// PELV W/O ORAL W/[place] [address] ---------NAME--------- NUMBER SEX AGE ADMIT DISC. XRAY# F/C TYPE BASILIO Torres [id number] F 40 07/31/20 [id number] E/R DATE OF : 1980 M/R# [id number] #: [id number] TR-05 LOCATION: EMERGENCY DEPT TRANSCRIBED: 07/31/20 7:[address] ABD //T// PELV W/O ORAL W/[place] [id number] COMPLETED:07/31/20 6:42 DLA [id number] Reason(s): Abdominal Pain 8 Clinical Report - Physicians/Mid Levels [facility] Emergency Department [address] [place] [address] Phone #: ext- [phone] 07/31/2020 05:13 [id number] Sex: [facility] : 1980 Age: 40y PHYSICIAN: MICHELLE SIMMONS == R A D I O L O G Y R E P O R T PATIENT HISTORY:ACTUAL DOSE 830.8 mGy*cm abdominal painPatient hx hysterectomy. Verification of 2 patient identifiers performed.Time Out performed. correct body part and side all verified prior toexamination. / O-MAR, ABD/PEL, O-MAR. Compare with non-O-MAR images (DICOM Hx)CT Abdomen/PelvisHistory:ACTUAL DOSE 830.8 mGy*cm abdominal pain Patient hx hysterectomy. Verificationof 2 patient identifiers performed. Time Out performed. correct body part andside all verified prior to examination. (Hx) / O-MAR, ABD/PEL, O-MAR. Comparewith non-O-MAR images (DICOM Hx)Technique:CT ABD //T// PELV W/O ORAL W/O IVDose length product (mGy-cm): Not providedReformations: OtherContrast: With outComparison:CTFindings:Gastric bypass surgery is noted without obstruction.Unremarkable jejunojejunostomy.The small bowel loops are mostly collapsed.The large bowel loops are mostly collapsed.The collapsed large and small bowel loops limits exam and are likely normal. Amild enteritis or colitis is not fully excluded but is unlikely as the bowelloops appear normal on previous contrasted exam.There is no evidence for pneumoperitoneum.There is no evidence for intra-abdominal loculated fluid collection or abscess.No ascites is noted.The exam demonstrates a cholecystectomy.Percutaneous tube balloon and tip noted within the small bowel loop . Thisfinding is similar to previous exam.There is mild stranding along the tube tract which represent inflammation orscarring. No evidence for pannus abscess or subcutaneous emphysema.There are normal appearing liver, pancreas and bilateral adrenal glands.Normal appearing spleen is noted.Normal kidneys appearing are noted.Normal appearing bladder is noted.Unremarkable aorta is noted.Trace pericardial effusion is noted.Stable lumbosacral fusion.Stable nodular scarring and/or nodules in the left lower lung.IMPRESSIONS:Unremarkable gastric bypass.The collapsed large and small bowel loops limits exam and are likely normal.See discussion above.Percutaneous tube balloon and tip noted within the small bowel loop. Thisfinding is similar to previous exam.There is mild stranding along the tube tract which represent inflammation orscarring. 9 Clinical Report - Physicians/Mid Levels [facility] Emergency Department [address] [place] [address] Phone #: ext- [phone] 07/31/2020 05:13 Patient: NI DIAZ Sex: F : 1980 Age: 40y Gastric bypass surgery is noted without obstruction. The exam demonstrates a cholecystectomy. Stable nodular scarring and/or nodules in the left lower lung Trace pericardial effusion is noted. This finding is similar to previous exam. The etiology of the patient's symptoms are not obvious on this exam. If findings are incongruent with clinical suspicion or for greater clinical certainty consider specialist consultation. While performing the above CT examination, radiation dose reduction was accomplished utilizing automated exposure control, adjusting of the mA and kV based on the patient's body size and/or the use of imperative reconstructive techniques. Electronically Signed By: Carlitos Hays M.D. , Radiologist Date/Time: 07/31/20 07:42 . Note - Tests: (CT abdomen / pelvis - S/P gastric bypass (not obstructed). No free air. S/P cholecystectomy. J-tube in place. Chronic trace pericardial effusion.).PROGRESS AND PROCEDURES Course of Care: 09:27 Jul 31 2020. Patient is stable. 09:27 Jul 31 2020. I have attempted to transfer pt. to [facility], but all have had no available beds. [facility] has refused because they do not have GI services. I spoke with Dr. Simmons (Hospitalist) and the patient is well known at [facility] as a chronic pain patient. Dr. Simmons spoke with the surgeon on- call (Dr. Rasheed) and he said the patient is not surgical and he sees her at his office twice a week. He recommends discharging the patient and having her follow-up with Pain Management as outpatient. 09:58 Jul 31 2020. I spoke with hospitalist (Dr. Henning) at [facility] ([place]) and he has accepted pt. for admission there. I am awaiting call back with a bed assignment for her. I have informed pt. of transfer. Critical care performed (130 minutes). Time is exclusive of separately billable procedures. Time includes: direct patient care, patient reassessment, coordination of patient care, interpretation of data (laboratory data and pulse oximetry), review of patient's medical records, medical consultation and documentation of patient care- see progress notes. Procedures included in critical care time: peripheral IV placement and phlebotomy- see progress notes. Disposition: Benefits, risks and alternatives to transfer explained to patient and spouse. Transferred to [facility]. Summary of care (CCDA) provided to transport team, EMS, patient, family and transfer facility via paper and digital media. 09:55 Jul 31 2020 Transfer to [facility] by ambulance as per Dr. Henning (Accepting Hospitalist). UTI (catheter associated) was not present prior to transfer. Pressure ulcer was not present prior to transfer. Vascular infection (catheter associated) was not 10 Clinical Report - Physicians/Mid Levels [facility] Emergency Department [address] [place] [address] Phone #: ext- [phone] 07/31/2020 05:13 [id number] Sex[facility] F : 1980 Age: 40y present prior to transfer. Surgical site infection was not present prior to transfer. An object left in surgery was not present prior to transfer. Blood incompatibility was not present prior to transfer. Air embolism was not present prior to transfer.CLINICAL IMPRESSION Acute epigastric and periumbilical abdominal pain. Intractable vomiting with nausea and volume depletion. Acute iron deficiency anemia from chronic blood loss, hypochromic anemia and anemia associated with chronic disease (S/P gastric bypass). (Chronic malnutrition / malabsorption due to gastric bypass (requires TPN and J-tube feedings)).(Electronically signed by Alec Calderón, Physician 07/31/2020 14:41) Name Value Range Interpretation Code Description Data Sumaya rce(s) Supporting Document(s) ID Date Data Source [id number] 07/31/2020 10:00:00 AM EDT [facility] Name Value Range Interpretation Code Description Data Sumaya rce(s) Supporting Document(s) [facility] SOURCE Clean Catch [facility] ital COLOR yellow NORMAL: Yellow [facility] CLARITY clear NORMAL: Clear [facility] Specific gravity of Urine by Test strip 1.010 1.001 - 1.030 [facility] pH 7 5 - 9 [facility] Glucose [Mass/volume] in Urine by Test strip NORM NORMAL: Negat [facility] Bilirubin.total [Presence] in Urine by Test strip NEG NORMAL: Negative [facility] Ketones [Presence] in Urine by Test strip 15 NORMAL: Negative A [facility] Protein [Mass/volume] in Urine by Test strip NEG NORMAL: Negat [facility] Nitrite [Presence] in Urine by Test strip NEG NORMAL: Negative [facility] BLOOD NEG NORMAL: Negative [facility] Leukocyte esterase [Presence] in Urine by Test strip NEG DELANO L: Negative [facility] Urobilinogen [Mass/volume] in Urine by Test strip NOR less tenisha n 1.0 mg/dL [facility] MICROSCOPIC Not Indicate [facility] ID Date Data Source [id number] 07/31/2020 07:59:50 AM EDT [facility] Name Value Range Interpretation Code Description Data Sumaya rce(s) Supporting Document(s) Progress Note [facility] AMKUUz8sYsJWDbQv18/BKEvoTGGxb0AxWTzoKDm2GBfoPXQxJ3SqRUL1sB8lKWN4OXvKWsUxFdSnJUSj lbm [file] AgICAgICAgICAgICAgICAgICAgICAgICAgICAgICAg ICAgICAgICAgICAgICAgICAgICAgICAgICAgICAgICAgICAgICANCiAgICAgICAgICAgICAgICAgICAg ICAgICAgICAgICAgICAgICAgICAgICAgICAgICAgICAgICAgICAgICAgICAgICAgICAgICAgICAgICAg ICAgICAgICAgICAgICAgICAgICANCiAgICAgICAgIC AgICAgICAgICAgICAgICAgICAgICAgICAgICAgICAgICAgICAgICAgICAgICAgICAgICAgICAgICAgIC AgICAgICAgICAgICAgICAgICAgICAgICAgICAgICANCiAgICAgICAgICAgICAgICAgICAgICAgICAgIC AgICAgICAgICAgICAgICAgICAgICAgICAgICAgICAg ICAgICAgICAgICAgICAgICAgICAgICAgICAgICAgICAgICAgICAgICANCiAgICAgICAgICAgICAgICAg ICAgICAgICAgICAgICAgICAgICAgICAgICAgICAgICAgICAgICAgICAgICAgICAgICAgICAgICAgICAg ICAgICAgICAgICAgICAgICAgICAgICANCiAgICAgIC AgICAgICAgICAgICAgICAgICAgICAgICAgICAgICAgICAgICAgICAgICAgICAgICAgICAgICAgICAgIC AgICAgICAgICAgICAgICAgICAgICAgICAgICAgICAgICANCiAgICAgICAgICAgICAgICAgICAgICAgIC AgICAgICAgICAgICAgICAgICAgICAgICAgICAgICAg ICAgICAgICAgICAgICAgICAgICAgICAgICAgICAgICAgICAgICAgICAgICANCiAgICAgICAgICAgICAg ICAgICAgICAgICAgICAgICAgICAgICAgICAgICAgICAgICAgICAgICAgICAgICAgICAgICAgICAgICAg ICAgICAgICAgICAgICAgICAgICAgICAgICANCiAgIC AgICAgICAgICAgICAgICAgICAgICAgICAgICAgICAgICAgICAgICAgICAgICAgICAgICAgICAgICAgIC AgICAgICAgICAgICAgICAgICAgICAgICAgICAgICAgICAgICANCiAgICAgICAgICAgICAgICAgICAgIC AgICAgICAgICAgICAgICAgICAgICAgICAgICAgICAg ICAgICAgICAgICAgICAgICAgICAgICAgICAgICAgICAgICAgICAgICAgICAgICANCjw/iOBvR3pdxUMd piV7B7aySz9SFo9BVU8gm4UwOIJfBBvzpzMpVseNWqZvAMFtHkbCEix6BFweDA6SfYQgZ2TqA5KvIEit PE2KRUBlFUPokXFsAIXrCTDeAdX2TOWcOJhwSM3OyP AcRZgsKKYaSKZjYP8EOUHmK898ftUgHQ8AXx7XUkBaQG5qky5FTATvERRwAipYQgi3KFiuXJ8CdWSliJ KjBDYjGQSLFxDpK3vbb0BnOIWvEARCUUerYH0At0PfiZGoVXd+Hk1UXT7jw3YhRLtsSIVsXV7edj5UCH sOQqHkI2BqcSceBYIae0euYATvMK3uoRHuTSE4LJej kvIpIJEqqHTvttWwRUEHLjOhrXTcLS1xQK0dSPXeKTS9DnZ5RSPYZB7YUJHgVVZtwGGrCCVxXJMKRN5K JZmkQLZ3XQBzbpHpgMGbANljCX5ZTRGvifHyYRPhJACQPSp+Ed3NNB0pa8YbKLumNkGoJP4hhn7IDMsQ UgBdN3K8iBYsP4D2UFsaEw4LIXEgYHQmCANpQSMTJU nqKK2JWH2lmxK8JK2HdDVvCMSpYAHfoDEsTUc7H58awAZvBVepIC5XZEN+Savannah+Mt4KPJNwCODrTCQlDv YhJDNCWpMoV7LcI1OJj1YdA1FdJF77dZsrmhEjPJokUE4JYZ9zOJIrLOWHAZ6JzUVjpL0skbBvFTPdPB JBBqAzQ93sbZDfJVPpCBIrCMYaCr3QGWQoI9WucmOl kBziqfVgBCUkTLURDI7LFBvimuDtbMGxeXauRD78vSpfAU2YRh4IMyPwNM4fir9YaNTpMf9ASQObEx6X LMUoHXUyZFSaAAR4XMAtDeDxWPbcYNBsVPQsZIQ4TBNhBUFnIY3EBqUzBVXtZSW9UcAbSZGxNWWzoo1R XFRpUFKeQxK2ONEpZBUyFJTzOLsjVWFsMGJhDQA2LF SbUCHrBS4UNgRmSULxUZF9GkNzBNQuIZWkpw6MBAJhOBCtLcQpEPFsXGZgURTvLGfbVDJlMUWpFHk7QV DeGFFfSS1AEkIrBGHzVLDnPPWqPKOmIOJsuw0WIWNaVRBnQbV7NbCbPYZeVNYqQCpjTCJtREL0RdXiME BjJBEzWZ6AZqHwIXKdIWY2VxRnACNtPMJjll4OQNNd XXWiHUrwUKCiERCvQMKeLZgkDIQgUSE1CNM0UHJiXIWxWQ8JUrLdIQZhTVH1HVEpILLmASOqxn4TKRLn AVBhFkRoNnDqKTQcFKIbRLasQXXbEWF6TzezWFDuWFXeGK4XZgSzUXgcMFWALmx2NKhyP6m7BPPeEx8G N5Ehx4UtTHUlEZUVVIqsMN7bitIuMDLjRx6AR6xVNm o8IHixPCM8BQVnRTNuHnQ0RImrCbZ4WVR2ZjVyUlKlBY1oUDIbX4NeSjyvZRY6EXJpCLeaIGEnTmgpVQ bfBdD3DcYiNyJoZO2EHr4HWzH4INK7bHOwTk8DWkLbIw2ZZZOIS9YPEl== ID Date Data Source [id number] 07/31/2020 07:42:00 AM EDT [facility] [address] [place] [address] ---------NAME--------- NUMBER SEX AGE ADMIT DISC. XRAY# F/C TYPE BASILIO Torres [id number] F 40 07/31/20 [id number] E/R DATE OF : 1980 M/R# [id number] #: [id number] TR-05 LOCATION: EMERGENCY DEPT TRANSCRIBED: 07/31/20 7:[address] ABD //T// PELV W/[place] ORAL W/[place] [id number] COMPLETED:07/31/20 6:42 DLA [id number] Reason(s): Abdominal Pain PHYSICIAN: MICHELLE SIMMONS======= R A D I O L O G Y R E P O R T PATIENT HISTORY:ACTUAL DOSE 830.8 mGy*cm abdominal painPatient hx hysterectomy. Verification of 2 patient identifiers performed.Time Out performed. correct body part and side all verified prior toexamination. / O-MAR, ABD/PEL, O-MAR. Compare with non-O-MAR images (DICOM Hx)CT Abdomen/PelvisHistory:ACTUAL DOSE 830.8 mGy*cm abdominal pain Patient hx hysterectomy. Verificationof 2 patient identifiers performed. Time Out performed. correct body part andside all verified prior to examination. (Hx) / O-MAR, ABD/PEL, O-MAR. Comparewith non-O-MAR images (DICOM Hx)Technique:CT ABD //T// PELV W/O ORAL W/O IVDose length product (mGy-cm): Not providedReformations: OtherContrast: WithoutComparison: CTFindings:Gastric bypass surgery is noted without obstruction.Unremarkable jejunojejunostomy.The small bowel loops are mostly collapsed.The large bowel loops are mostly collapsed.The collapsed large and small bowel loops limits exam and are likely normal. Amild enteritis or colitis is not fully excluded but is unlikely as the bowelloops appear normal on previous contrasted exam.There is no evidence for pneumoperitoneum.There is no evidence for intra-abdominal loculated fluid collection or abscess.No ascites is noted.The exam demonstrates a cholecystectomy.Percutaneous tube balloon and tip noted within the small bowel loop . Thisfinding is similar to previous exam.There is mild stranding along the tube tract which represent inflammation orscarring. No evidence for pannus abscess or subcutaneous emphysema.There are normal appearing liver, pancreas and bilateral adrenal glands.Normal appearing spleen is noted.Normal kidneys appearing are noted.Normal appearing bladder is noted.Unremarkable aorta is noted.Trace pericardial effusion is noted.Stable lumbosacral fusion.Stable nodular scarring and/or nodules in the left lower lung.IMPRESSIONS:Unremarkable gastric bypass.The collapsed large and small bowel loops limits exam and are likely normal.See discussion above.Percutaneous tube balloon and tip noted within the small bowel loop. Thisfinding is similar to previous exam.There is mild stranding along the tube tract which represent inflammation orscarring.Gastric bypass surgery is noted without obstruction.The exam demonstrates a cholecystectomy.Stable nodular scarring and/or nodules in the left lower lungTrace pericardial effusion is noted. This finding is similar to previous exam.The etiology of the patient's symptoms are not obvious on this exam.If findings are incongruent with clinical suspicion or for greater clinicalcertainty consider specialist consultation.While performing the above CT examination, radiation dose reduction wasaccomplished utilizing automated exposure control, adjusting of the mA and kVbased on the patient's body size and/or the use of imperative reconstructivetechniques.Electronically Signed By:Carlitos Hays M.D. , RadiologistDate/Time: 07/31/20 07:42 Name Value Range Interpretation Code Description Data Sumaya rce(s) Supporting Document(s) ID Date Data Source [id number] 08/05/2020 08:32:00 AM EDT [facility] 1157 Name Value Range Interpretation Code Description Data Sumaya rce(s) Supporting Document(s) Bacteria identified in Blood by Culture [facility] NO GROWTH AFTER 5 DAYS ID Date Data Source [id number] 08/06/2020 01:46:00 PM EDT [facility] Name Value Range Interpretation Code Description Data Sumaya rce(s) Supporting Document(s) CULTURE BLOOD [facility] spital _CULTURE BLOOD_ [place] [address] CLIA# [id number] SEE SCANNED REPORT{ PRELIM ID Date Data Source [id number] 07/31/2020 06:58:00 AM EDT [facility] Name Value Range Interpretation Code Description Data Sumaya rce(s) Supporting Document(s) Erythrocyte sedimentation rate by Westergren method 16 mm/hr 0 - 20 [facility] SED RATE REENTER 16 [facility] ID Date Data Source [id number] 07/31/2020 06:54:00 AM EDT [facility] Name Value Range Interpretation Code Description Data Sumaya rce(s) Supporting Document(s) CBC W/AUTOMATED DIFF [facility] COMPLETE BLOOD COUNT Leukocytes [#/volume] in Blood by Automated count 7.5 10^3/uL 4.2 - 1 1.0 [facility] Erythrocytes [#/volume] in Blood by Automated count 4.07 10^6/uL 4. 20 - 5.40 L [facility] Hemoglobin [Mass/volume] in Blood 9.6 g/dL 12.0 - 16.0 L [facility] Hematocrit [Volume Fraction] of Blood by Automated count 32.3 % 3 7.0 - 47.0 L [facility] Erythrocyte mean corpuscular volume [Entitic volume] by Auto mated count 79.4 fL 81.0 - 101 L [facility] Erythrocyte mean corpuscular hemoglobin [Entitic mass] by Automated count 23.6 pg 27.0 - 34.0 L [facility] Erythrocyte mean corpuscular hemoglobin concentration [Mass/volume] by Automated count 29.7 g/dL 31.0 - 36.0 L [facility] Erythrocyte distribution width [Ratio] by Automated count 17.9 % 11.5 - 14.5 H [facility] Platelets [#/volume] in Blood by Automated count 520 10^3/uL 150 - 45 0 H [facility] Platelet mean volume [Entitic volume] in Blood by Automated count 9.0 fL 7.4 - 10.4 [facility] Neutrophils/100 leukocytes in Blood by Automated count 83.8 % 37. 0 - 80.0 H [facility] Lymphocytes/100 leukocytes in Blood by Manual count 8.3 % 25.0 - 40.0 L [facility] Monocytes/100 leukocytes in Blood by Automated count 3.3 % 3.0 - 8.0 [facility] Eosinophils/100 leukocytes in Blood by Automated count 3.6 % 0.0 - 7.0 [facility] Basophils/100 leukocytes in Blood by Automated count 0.7 % 0.0 - 2.5 [facility] %IG 0.3 % 0.0 - 0.0 [facility] %NRBC 0.0 % 0.0 - 0.0 [facility] al Neutrophils [#/volume] in Blood by Automated count 6.29 10^3/uL 2.00 - 6.90 [facility] Lymphocytes [#/volume] in Blood by Automated count 0.62 10^3/uL 0.60 - 3.40 [facility] Monocytes [#/volume] in Blood by Automated count 0.25 10^3/uL 0.00 - 0.90 [facility] Eosinophils [#/volume] in Blood by Automated count 0.27 10^3/uL 0.00 - 0.70 [facility] Basophils [#/volume] in Blood by Automated count 0.05 10^3/uL 0.00 - 0.20 [facility] #IG 0.02 10^3/uL 0.00 - 0.10 [facility] #NRBC 0.00 10^3/uL 0.00 - 0.00 [facility] ospital MANUAL DIFF SEE BELOW [facility] ital Segmented neutrophils/100 leukocytes in Blood by Manual count 91 % 37 - 80 H [facility] %LYMPH 6 % 25 - 40 L [facility] al %MONO 3 % 3 - 8 [facility] al RBC MORPH SEE BELOW [facility] al Anisocytosis [Presence] in Blood by Light microscopy 1+ DELANO L: NONE SEEN A [facility] Microcytes [Presence] in Blood by Light microscopy 1+ NORMAL: NONE SEEN A [facility] Poikilocytosis [Presence] in Blood by Light microscopy 1+ NOR MAL: NONE SEEN A [facility] HYPO 2+ NORMAL: NONE SEEN A [facility] { SICKLE CELL (NORMAL: NONE SEEN ) Ovalocytes [Presence] in Blood by Light microscopy 1+ NORMAL: NONE SEEN A [facility] Neutrophils.hypersegmented [Presence] in Blood by Light micr oscopy 1+ NORMAL: NONE SEEN A [facility] Platelet adequacy [Presence] in Blood by Light microscopy IN CREASED NORMAL: NORMAL A [facility] COMMENT: ID Date Data Source [id number] 07/31/2020 06:51:00 AM EDT [facility] Name Value Range Interpretation Code Description Data Sumaya rce(s) Supporting Document(s) C reactive protein [Mass/volume] in Serum or Plasma by High sensitivity method 0.88 MG/L 1.00 - 3.00 L [facility] CDC/S HS-CRP CUT-OFF: RELATIVE RISK: <1.0 mg/L Low 1.0 - 3.0 mg/L Average >3.0 mg/L High Optimally, the average of HS-CRP results repeated two weeks apart should be used for risk assessment. ID Date Data Source [id number] 07/31/2020 06:51:00 AM EDT [facility] Name Value Range Interpretation Code Description Data Sumaya rce(s) Supporting Document(s) Lipase [Enzymatic activity/volume] in Serum or Plasma 33 U/L 13 - 60 [facility] ID Date Data Source [id number] 07/31/2020 06:51:00 AM EDT [facility] Name Value Range Interpretation Code Description Data Sumaya rce(s) Supporting Document(s) COMPREHENSIVE METABOLIC PANEL [facility] COMPREHENSIVE METABOLIC PANEL Sodium [Moles/volume] in Serum or Plasma 136 mEq/L 134 - 153 [facility] Potassium [Moles/volume] in Serum or Plasma 4.2 mEq/L 3.6 - 5.0 [facility] Chloride [Moles/volume] in Serum or Plasma 101 mEq/L 98 - 107 [facility] Carbon dioxide, total [Moles/volume] in Serum or Plasma 23 MEQ/L 22 - 30 [facility] Glucose [Mass/volume] in Serum or Plasma 163 MG/DL 65 - 110 H [facility] BUN 11 MG/DL 7 - 21 [facility] al Creatinine [Mass/volume] in Serum or Plasma 0.6 MG/DL 0.7 - 1.5 L [facility] BUN/CREAT 18 8 - 27 [facility] al Protein [Mass/volume] in Serum or Plasma 6.8 G/DL 6.3 - 8.2 [facility] Albumin [Mass/volume] in Serum or Plasma 4.4 G/DL 3.9 - 5.0 [facility] Globulin [Mass/volume] in Serum by calculation 2.4 GM/DL 2.4 - 3.2 [facility] A/G RATIO 1.8 0.8 - 2.0 [facility] Calcium [Mass/volume] in Serum or Plasma 9.3 MG/DL 8.4 - 10.2 [facility] Bilirubin.total [Mass/volume] in Serum or Plasma <0.7 MG/DL 0.2 - 1.3 [facility] Alkaline phosphatase [Enzymatic activity/volume] in Serum or Plasma 180 U/L 38 - 126 H [facility] Aspartate aminotransferase [Enzymatic activity/volume] in Serum or Plasma 30 U/L 5 - 40 [facility] Alanine aminotransferase [Enzymatic activity/volume] in Seru m or Plasma 46 U/L 7 - 56 [facility] Anion gap 3 in Serum or Plasma 12.0 mmol/L 8.0 - 16.0 [facility] AGE 40 yrs [facility] NON-AA GFR >60 mL/min [facility] ital AFR AMER GFR >60 mL/min [facility] Male GFR In terprentation 20-49 yrs >60 mL/min Normal 50-59 yrs >56 mL/min Normal 60-69 yrs >49 mL/min Normal 70-79yrs >42 mL/min Normal 80 and above >35 mL/min Normal Female GFR Interpretation 20-39 yrs >60 mL/min Normal 40-49 yrs >58 mL/min Normal 50-59 yrs >51 mL/min Normal 60-69 yrs >45 mL/min Normal 70-79 yrs >39 mL/min Normal 80 and above >32 mL/min Normal ID Date Data Source [id number] 07/31/2020 06:44:00 AM EDT [facility] Name Value Range Interpretation Code Description Data Sumaya rce(s) Supporting Document(s) Lactate [Moles/volume] in Serum or Plasma 2.0 MMOL/L 0.2 - 2.2 [facility] ID Date Data Source [id number] 08/06/2020 01:46:00 PM EDT [facility] Name Value Range Interpretation Code Description Data Sumaya rce(s) Supporting Document(s) CULTURE BLOOD [facility] _CULTURE BLOOD_ TEST PERFORM ED AT [address] [address] CLIA# [id number] SEE SCANNED REPORT{ PRELIM ID Date Data Source [id number] 08/05/2020 08:34:00 AM EDT [facility] 1052 Name Value Range Interpretation Code Description Data Sumaya rce(s) Supporting Document(s) Bacteria identified in Blood by Culture [facility] NO GROWTH AFTER 5 DAYS ID Date Data Source [id number] 08/06/2020 01:46:00 PM EDT [facility] Value Range Interpretation Code Description Data Sumaya rce(s) Supporting Document(s) CULTURE BLOOD [facility] spital _CULTURE BLOOD_ TEST PERFORM ED AT [address] [address] CLIA# [id number] SEE SCANNED REPORT{ PRELIM ID Date Data Source [id number] 07/30/2020 04:31:00 PM EDT [facility] Value Range Interpretation Code Description Data Sumaya rce(s) Supporting Document(s) Phosphate [Mass/volume] in Serum or Plasma 4.0 MG/DL 2.5 - 4.5 [facility] ID Date Data Source [id number] 07/30/2020 04:31:00 PM EDT [facility] Name Value Range Interpretation Code Description Data Sumaya rce(s) Supporting Document(s) Magnesium [Mass/volume] in Serum or Plasma 2.0 MG/DL 1.7 - 2.2 [facility] ID Date Data Source [id number] 07/30/2020 04:31:00 PM EDT [facility] Name Value Range Interpretation Code Description Data Sumaya rce(s) Supporting Document(s) Lipase [Enzymatic activity/volume] in Serum or Plasma 28 U/L 13 - 60 [facility] ID Date Data Source [id number] 07/30/2020 04:31:00 PM EDT [facility] Name Value Range Interpretation Code Description Data Sumaya rce(s) Supporting Document(s) COMPREHENSIVE METABOLIC PANEL [facility] COMPREHENSIVE METABOLIC PANEL Sodium [Moles/volume] in Serum or Plasma 136 mEq/L 134 - 153 [facility] Potassium [Moles/volume] in Serum or Plasma 4.7 mEq/L 3.6 - 5.0 [facility] Chloride [Moles/volume] in Serum or Plasma 99 mEq/L 98 - 107 [facility] Carbon dioxide, total [Moles/volume] in Serum or Plasma 23 MEQ/L 22 - 30 [facility] Glucose [Mass/volume] in Serum or Plasma 160 MG/DL 65 - 110 H [facility] BUN 12 MG/DL 7 - 21 [facility] Creatinine [Mass/volume] in Serum or Plasma 0.6 MG/DL 0.7 - 1.5 L [facility] BUN/CREAT 20 8 - 27 [facility] al Protein [Mass/volume] in Serum or Plasma 7.4 G/DL 6.3 - 8.2 [facility] Albumin [Mass/volume] in Serum or Plasma 4.7 G/DL 3.9 - 5.0 [facility] Globulin [Mass/volume] in Serum by calculation 2.7 GM/DL 2.4 - 3.2 [facility] A/G RATIO 1.7 0.8 - 2.0 [facility] Calcium [Mass/volume] in Serum or Plasma 9.8 MG/DL 8.4 - 10.2 [facility] Bilirubin.total [Mass/volume] in Serum or Plasma <0.7 MG/DL 0.2 - 1.3 [facility] Alkaline phosphatase [Enzymatic activity/volume] in Serum or Plasma 223 U/L 38 - 126 H [facility] Aspartate aminotransferase [Enzymatic activity/volume] in Serum or Plasma 60 U/L 5 - 40 H [facility] Alanine aminotransferase [Enzymatic activity/volume] in Seru m or Plasma 67 U/L 7 - 56 H [facility] Anion gap 3 in Serum or Plasma 14.0 mmol/L 8.0 - 16.0 [facility] AGE 40 yrs [facility] NON-AA GFR >60 mL/min [facility] ital AFR AMER GFR >60 mL/min [facility] Male GFR In terprentation 20-49 yrs >60 mL/min Normal 50-59 yrs >56 mL/min Normal 60-69 yrs >49 mL/min Normal 70-79yrs >42 mL/min Normal 80 and above >35 mL/min Normal Female GFR Interpretation 20-39 yrs >60 mL/min Normal 40-49 yrs >58 mL/min Normal 50-59 yrs >51 mL/min Normal 60-69 yrs >45 mL/min Normal 70-79 yrs >39 mL/min Normal 80 and above >32 mL/min Normal ID Date Data Source [id number] 07/30/2020 04:07:00 PM EDT [facility] [facility] Name Value Range Interpretation Code Description Data Sumaya rce(s) Supporting Document(s) CBC W/AUTOMATED DIFF [facility] COMPLETE BLOOD COUNT Leukocytes [#/volume] in Blood by Automated count 9.9 10^3/uL 4.2 - 1 1.0 [facility] Erythrocytes [#/volume] in Blood by Automated count 4.41 10^6/uL 4. 20 - 5.40 [facility] Hemoglobin [Mass/volume] in Blood 10.5 g/dL 12.0 - 16.0 L [facility] Hematocrit [Volume Fraction] of Blood by Automated count 35.0 % 3 7.0 - 47.0 L [facility] Erythrocyte mean corpuscular volume [Entitic volume] by Auto mated count 79.4 fL 81.0 - 101 L [facility] Erythrocyte mean corpuscular hemoglobin [Entitic mass] by Automated count 23.8 pg 27.0 - 34.0 L [facility] Erythrocyte mean corpuscular hemoglobin concentration [Mass/volume] by Automated count 30.0 g/dL 31.0 - 36.0 L [facility] Erythrocyte distribution width [Ratio] by Automated count 17.7 % 11.5 - 14.5 H [facility] Platelets [#/volume] in Blood by Automated count 656 10^3/uL 150 - 45 0 H [facility] Platelet mean volume [Entitic volume] in Blood by Automated count 9.1 fL 7.4 - 10.4 [facility] Neutrophils/100 leukocytes in Blood by Automated count 87.2 % 37. 0 - 80.0 H [facility] Lymphocytes/100 leukocytes in Blood by Manual count 7.2 % 25.0 - 40.0 L [facility] Monocytes/100 leukocytes in Blood by Automated count 2.3 % 3.0 - 8.0 L [facility] Eosinophils/100 leukocytes in Blood by Automated count 2.0 % 0.0 - 7.0 [facility] Basophils/100 leukocytes in Blood by Automated count 0.8 % 0.0 - 2.5 [facility] %IG 0.5 % 0.0 - 0.0 [facility] 0.0 % 0.0 - 0.0 [facility] al Neutrophils [#/volume] in Blood by Automated count 8.61 10^3/uL 2.00 - 6.90 H [facility] Lymphocytes [#/volume] in Blood by Automated count 0.71 10^3/uL 0.60 - 3.40 [facility] Monocytes [#/volume] in Blood by Automated count 0.23 10^3/uL 0.00 - 0.90 [facility] Eosinophils [#/volume] in Blood by Automated count 0.20 10^3/uL 0.00 - 0.70 [facility] Basophils [#/volume] in Blood by Automated count 0.08 10^3/uL 0.00 - 0.20 [facility] #IG 0.05 10^3/uL 0.00 - 0.10 [facility] ospital #NRBC 0.00 10^3/uL 0.00 - 0.00 [facility] ospital MANUAL DIFF NOT INDICATED [facility] RBC MORPH NOT INDICATED [facility] spital ID Date Data Source [id number] 07/30/2020 04:07:00 PM EDT [facility] Name Value Range Interpretation Code Description Data Sumaya rce(s) Supporting Document(s) Prothrombin time (PT) 12.6 SECONDS 11.0 - 15.5 [facility] INR in Platelet poor plasma by Coagulation assay 0.93 0.93 - 1. 23 [facility] aPTT in Blood by Coagulation assay 26.8 SECONDS 24.8 - 36.7 [facility] \\BLDo\\INR INTERPRETATION\\BLDx\\ Therapeutic range for Coumadin and related oral anticoagulants. - International Normalized Ratio (INR): 2.0 - 3.0 for Venous Thrombosis, Pulmonary Embolus, Tissue heart valves, Acute RI Atrial Fibrillation, Valvular heart disease and recurrent Systemic Embolism. - International Normalized Ratio (INR): 2.5 - 3.5 for Mechanical Prosthetic valve. ID Date Data Source [id number] 07/30/2020 04:07:00 PM EDT [facility] Name Value Range Interpretation Code Description Data Sumaya rce(s) Supporting Document(s) Lactate [Moles/volume] in Serum or Plasma 3.0 MMOL/L 0.2 - 2.2 H [facility] ID Date Data Source [id number] 06/03/2020 04:15:00 PM EDT [facility] 1 OrderSheet [facility] Emergency Department [address] [place] [address] Phone #: ext- [phone] 06/03/2020 16:05 Patient: NI DIAZ Sex: F : 1980 Age: 40yWEIGHT:68.0 kg HEIGHT:67 inches BMI:23.5ALLERGIES: Levaquin, NSAID, Sulfa AntibioticsCHIEF COMPLAINT: abnormal labDIAGNOSIS: Anemia, Urinary tract infectious diseaseLAB ORDERSOrder Description Priority Entered Acknowledged InitialedBNP STAT 16:22 06/03/2020 16:24 Jeff SIMMONS; Dixon RNCBC w Diff STAT 16:06/03/2020 16:24 Jeff SIMMONS; Dixon RNCMP STAT 16:22 06/03/2020 16:24 Jeff SIMMONS; Dixon RNLactic Acid STAT 16:06/03/2020 16:24 Jeff SIMMONS; Dixon RNPT/PTT STAT 16:22 06/03/2020 16:24 Jeff SIMMONS; Dixon RNTroponin-T STAT 16:22 06/03/2020 16:24 Jeff SIMMONS; Dixon RNUrinalysis (Clean STAT 16:22 06/03/2020 18:39 Melissa) Tawanda SIMMONS; Dixon RNType and Screen STAT 16:22 06/03/2020 16:24 Jeff SIMMONS; Dixon RND-Dimer STAT 16:24 06/03/2020 16:24 Jeff SIMMONS; Dixon RNOccult Blood Stool 16:47 06/03/2020 17:34 JeffDiagnostic 1 slide Tawanda SIMMONS; Dixon RN Reason for ordering with alerts: Clinical consideration given -- 16:47 06/03/2020 Tawanda Sol PACulture, Urine STAT 19:29 06/03/2020 19:34 Brittany Fong(Urine, Clean Tawanda SIMMONS; RNCatch)DIAGNOSTIC STUDY ORDERSOrder Description Priority Entered Acknowledged InitialedCT Abd PEL W/ IV STAT 16:48 06/03/2020 17:34 JeffContrast Only Tawanda SIMMONS; Dixon RN(Oxygen?(No)) 2 OrderSheet [facility] Emergency Department [address] [place] [address] Phone #: [phone] 06/03/2020 16:05 Patient: NI DIAZ Sex: F : 1980 Age: 40y(IV?(Yes)) Reason for Study: L sided abd pain, tachycardia, multiple bowel surgeriesCT CTA CHEST STAT 17:01 06/03/2020 17:34 Jeff(NONCOR) Kahlil SIMMONS; Dixon QUINONESINC PP(Oxygen?(No))(IV?(Yes)) Reason for Study: tachycardia, SOB, prior hx PEMEDICATION/IV/DRIP/FLUID ORDERSOrder Description Priority Entered Acknowledged InitialedNS IV : 75 mL/hr 16:40 06/03/2020 16:52 Jeff(NOW x1) Tawanda SIMMONS; Dixon RNMorphine IVP 2 mg 16:47 06/03/2020 16:58 Jeff(NOW x1, keep o2 Tawanda SIMMONS; Dixon RNsat > 90%, HIGHALERTMEDICATION) Reason for ordering with alerts: Clinical consideration given -- 16:47 06/03/2020 Tawanda Sol PAZofran ODT PO 4 16:47 06/03/2020 Cancelled: Other 16:56 Tawanda Mattson (NOW x1) Tawanda SIMMONS; TROY Reason for ordering with alerts: Clinical consideration given -- 16:47 06/03/2020 Tawanda Sol PAProtonix IVPB 40 16:47 06/03/2020 16:58 Jeffmg with Dextrose Tawanda SIMMONS; Dixon RN100 ml spike bag(D5W) Reason for ordering with alerts: Clinical consideration given -- 16:47 06/03/2020 Tawanda Sol PAZofran IVP 4 mg 16:56 06/03/2020 16:58 Jeff SIMMONS; Dixon RN Reason for ordering with alerts: Clinical consideration given -- 16:56 06/03/2020 Tawanda Sewellta PAMorphine IVP 2 mg 18:33 06/03/2020 18:39 Jeff(NOW x1, keep o2 Tawanda SIMMONS; Dixon RNsat > 90%, HIGHALERTMEDICATION) Reason for ordering with alerts: Clinical consideration given -- 18:33 06/03/2020 Tawanda Sewellta PAZofran IVP 4 mg 18:33 06/03/2020 18:40 Jeff SIMMONS; Dixon RN 3 OrderSheet [facility] Emergency Department [address] [place] [address] Phone #: ext- [phone] 06/03/2020 16:05 Patient: NI DIAZ Sex: F : 1980 Age: 40y Reason for ordering with alerts: Clinical consideration given -- 18:33 06/03/2020 Tawanda Sol PARocephin 19:35 06/03/2020 19:43 Jeff(1gm/50mL) IVPB Tawanda SIMMONS; Dixon UP4149 mg withDextrose 50 mlspike bag (D5W) Reason for ordering with alerts: Clinical consideration given -- 19:35 06/03/2020 Tawanda Sol PAGENERAL ORDERSOrder Description Priority Entered Acknowledged InitialedBlood Pressure 16:22 06/03/2020 16:24 Ira SIMMONS; Dixon QUINONESCardiac Monitor 16:22 06/03/2020 16:24 Jeff(continuous) Tawanda SIMMONS; Dixon RNNPO 16:22 06/03/2020 16:24 Jeff SIMMONS; Dixon RNPulse Oximetry 16:22 06/03/2020 16:24 JeffContinuous Tawanda SIMMONS; Dixon RNVitals 16:22 06/03/2020 16:24 Jeff SIMMONS; Dixon RNVitals every 15 16:22 06/03/2020 16:24 Jeffminutes Tawanda SIMMONS; Dixon RNWarm blanket 16:22 06/03/2020 16:24 Jeff SIMMONS; Dixon RNSaline Lock 16:22 06/03/2020 16:24 Jeff SIMMONS; Dixon QUINONESObtain Old EKG 16:24 06/03/2020 16:24 Jeff SIMMONS; Dixon RN[Electronically signed by Jeff Metcalf RN (20:21 06/03/2020)][Electronically signed by Tawanda Sol (10:17 06/04/2020)][Electronically locked by Jeff Metcalf RN (20:21 06/03/2020)] Name Value Range Interpretation Code Description Data Sumaya rce(s) Supporting Document(s) ID Date Data Source [id number] 06/03/2020 04:15:00 PM EDT [facility] 1 Medication Reconciliation Report [facility] Emergency Department [address] [place] [address] Phone #: ext- [phone] 06/03/2020 16:05 Patient: NI DIAZ Sex: F : 1980 Age: 40yWeight: 68.0 kgHeight/Length: 67 in.BMI: 23.5ALLERGIES: Levaquin, NSAID, Sulfa AntibioticsThe patient's Home Medications are listed below:CONTINUE TAKING THE FOLLOWING MEDICATIONS: Ambien Oral 7.5, daily, via J tube, prn,at bedtime Benadryl IV 50mg QDAY for nausea, 2x a day Carafate Oral 1 gm, q4h, via J tube Creon Oral ([id number] unit) 1 capsule, 4x a day, J tube Lovenox Subcutaneous (80 mg/0.8mL) 70 mg, 2x a day oxyCODONE HCl Oral 100/5 ml; 1ML, 4x a day, via J tube, prn Protonix Intravenous (40 mg), 2x a day Tylenol Oral, prnTHE FOLLOWING MEDICATIONS NEED TO BE RECONCILED: FLUoxetine HCl Oral 20 mg, daily, via J tube Ondansetron HCl Injection 8 mg 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, q8h, prnThe source(s) of the original Home Medication information:patientThe following Medications were given to the patient in the Emergency Department:NS [IV] IV Fluids bolus 0, then 75 mL/hr, administered: 06/03/2020 4:52:00 PM 2 Medication Reconciliation Report [facility] Emergency Department [address] [place] [address] Phone #: ext- [phone] 06/03/2020 16:05 Patient: NI DIAZ Sex: F : 1980 Age: 40yMorphine [IVP] IVP 2 mg, administered: 06/03/2020 4:58:00 PMZofran [IVP] IVP 4 mg, administered: 06/03/2020 4:58:00 PMProtonix [IVPB] IVPB bolus 0, then 40 mg 200 mL/hr, administered: 06/03/2020 4:58:00 PMMorphine [IVP] IVP 2 mg, administered: 06/03/2020 6:39:00 PMZofran [IVP] IVP 4 mg, administered: 06/03/2020 6:40:00 PMROCEPHIN (1GM/50ML) [IVPB] IVPB bolus 0, then 1 gm 100 mL/hr, administered: 06/03/2020 7:43:00 PMThe following Medications were prescribed to t he patient:None. Name Value Range Interpretation Code Description Data Sumaya rce(s) Supporting Document(s) ID Date Data Source [id number] 06/03/2020 04:15:00 PM EDT [facility] 1 Medication Administration Record [facility] Emergency Department [address] [place] [address] Phone #: imf- [phone] 06/03/2020 16:05 Patient: NI DIAZ Sex: F : 1980 Age: 40yWeight: 68.0 kgHeight/Length: 67 inBMI: 23.5ALLERGIES: Levaquin, NSAID, Sulfa Antibiotics Date/Time Medication Administered Medication OrderedStart NS [IV] NS IV : 75 mL/hr (NOW x1)16:52 06/03/2020 Dose: IV FluidsJeff Metcalf RN Rate: 75 mL/hr over 8 hour(s)---- Dispensed: 500 mL bagStop Site: #1 right19:55 06/03/2020Jeff Metcalf RNGiven MORPHINE [IVP] Morphine IVP 2 mg (NOW x1, keep16:58 06/03/2020 Dose: 2 mg IVP o2 sat > 90%, HIGH ALERTJeff Metcalf RN Site: #1 right MEDICATION)Start PROTONIX [IVPB] (PANTOPRAZOLE Protonix IVPB 40 mg with16:58 06/03/2020 SODIUM) Dextrose 100 ml spike bag (D5W)Jeff Metcalf RN Dose: 40 mg IVPB---- Rate: 200 mL/hr over 30 minute(s)Stop Dispensed: 100 mL bag17:10 06/03/2020 Site: #1 Gavino Metcalf RNGiven ZOFRAN [IVP] (ONDANSETRON HCL) Zofran IVP 4 mg16:58 06/03/2020 Dose: 4 mg IVPaula Metcalf RN Site: #1 rightGiven MORPHINE [IVP] Morphine IVP 2 mg (NOW x1, keep18:39 06/03/2020 Dose: 2 mg IVP o2 sat > 90%, HIGH Seng Metcalf RN Site: #1 right MEDICATION)Given ZOFRAN [IVP] (ONDANSETRON HCL) Zofran IVP 4 mg18:40 06/03/2020 Dose: 4 mg IVPaula Metcalf RN Site: #1 rightStart ROCEPHIN (1GM/50ML) [IVPB] Rocephin (1gm/50mL) IVPB 598152:43 06/03/2020 (CEFTRIAXONE SODIUM) mg with Dextrose 50 ml spike Zahra Metcalf RN Dose: 1 gm IVPB (D5W)---- Rate: 100 mL/hr over 30 minute(s)Stop Dispensed: 50 mL bag20:05 06/03/2020 Site: #1 Gavino Metcalf RN Name Value Range Interpretation Code Description Data Sumaya rce(s) Supporting Document(s) ID Date Data Source [id number] 06/03/2020 04:15:00 PM EDT [facility] 1 General Instructions [facility] Emergency Department [address] [place] [address] Phone #: ext- [phone] 06/03/2020 16:05 Patient: NI DIAZ Sex: F : 1980 Age: 40yAnemia (chronic anemia secondary to chronic lower GI bleeding).Acute urinary tract infection. Not associated with indwelling catheter or obstruction.INSTRUCTIONSWarnings: Further evaluation is necessary. It is very important to follow up with a healthcare provider.GENERAL WARNINGS: Return or contact your physician immediately if your condition worsens orchanges unexpectedly, if not improving as expected, or if other problems arise. Specifically return if pain,vomiting, bleeding, breathing difficulty or fever.Your Current Medications:CONTINUE TAKING THE FOLLOWING MEDICATIONS:Ambien Oral : 7.5 daily, prn, at bedtime, via J tube.Benadryl IV 50mg QDAY for nausea* : 2x a day.Carafate Oral : 1 gm q4h, via J tube.Creon Oral : Capsule Delayed Release Particles [id number] unit, 1 capsule 4x a day, J tube.Lovenox Subcutaneous : Solution 80 mg/0.8mL, 70 mg 2x a day.oxyCODONE HCl Oral : 100/5 ml; 1ML 4x a day, prn, via J tube.Protonix Intravenous : Solution Reconstituted 40 mg, 2x a day.Tylenol Oral : prn.Follow-up:Follow up with your healthcare provider in three days even if well. Call for the next available appointment.Reason for referral: evaluation and f/u with [facility] in [place] as scheduled for further evaluation of anemiawith chronic GI bleeding. Summary of care provided to patient and family via paper.Understanding of the discharge instructions verbalized by patient and family. Expected course of illness,discharge instructions, activity level, prescriptions x1, follow-up appointment and risks and benefits oftreatment reviewed with patient and spouse and understanding verbalized. Agrees to plan of care. ADDITIONAL INFORMATIONAnemia, Type Not Specified (Adult)Red blood cells carry oxygen to the tissues of your body. Anemia is a condition in which you have toofew red blood cells. You need iron to make red blood cells. The most common cause of anemia is nothaving enough iron. This may be because of: 2 General Instructions [facility] Emergency Department [address] [place] [address] Phone #: ext- [phone] 06/03/2020 16:05 Patient: NI DIAZ Sex: F : 1980 Age: 40y Loss of blood. This can be caused by heavy menstrual periods. It can also be caused by bleeding from the stomach or intestines. Poor diet. You may not be eating enough foods that contain iron.Other causes of anemia include certain vitamin deficiencies, chronic kidney disease, and otherchronic illnesses.Anemia makes you feel tired and run down. When anemia becomes severe, your skin becomes pale.You may feel short of breath after physical activity. Other symptoms include: Headaches Dizziness Leg cramps with physical activity DrowsinessHome careFollow these guidelines when caring for yourself at home: Don't overexert yourself. Talk with your healthcare provider before traveling by air or traveling to high altitudes.Follow-up careFollow up with your healthcare provider, or as advised. You may need other blood tests to find out theexact cause of your anemia. If you had testing done today, it may take several days to get all of theresults. You can follow up with your own healthcare provider to get the results.Call [phone] or get immediate medical care if any of the following occur: Shortness of breath or chest pain Dizziness or fainting gets worse Vomiting blood or passing red or black-colored stool [phone] [employer]. [address] [place] [address]. All rights reserved. This information is not intended as asubstitute for professional medical care. Always follow your healthcare professional's instructions.Bladder Infection, Female (Adult) 3 General Instructions [facility] Emergency Department [address] [place] [address] Phone #: ext- [phone] 06/03/2020 16:05 Patient: NI DIAZ Sex: F : 1980 Age: 40yUrine is normally doesn't have any bacteria in it. But bacteria can get into the urinary tract from theskin around the rectum. Or they can travel in the blood from elsewhere in the body. Once they are inyour urinary tract, they can cause infection in the urethra (urethritis), the bladder (cystitis), or thekidneys (pyelonephritis).The most common place for an infection is in the bladder. This is called a bladder infection. This isone of the most common infections in women. Most bladder infections are easily treated. They arenot serious unless the infection spreads to the kidney.The phrases "bladder infection," "UTI," and "cystitis" are often used to describe the same thing. Butthey are not always the same. Cystitis is an inflammation of the bladder. The most common cause ofcystitis is an infection.SymptomsThe infection causes inflammation in the urethra and bladder. This causes many of the symptoms.The most common symptoms of a bladder infection are: Pain or burning when urinating Having to urinate more often than usual Urgent need to urinate Only a small amount of urine comes out Blood in urine 4 General Instructions [facility] Emergency Department [address] [place] [address] Phone #: ext- [phone] 06/03/2020 16:05 Patient: NI DIAZ Sex: F : 1980 Age: 40y Abdominal discomfort. This is usually in the lower abdomen above the pubic bone. Cloudy urine Strong- or bad-smelling urine Unable to urinate (urinary retention) Unable to hold urine in (urinary incontinence) Fever Loss of appetite Confusion (in older adults)CausesBladder infections are not contagious. You can't get one from someone else, from a toilet seat, orfrom sharing a bath.The most common cause of bladder infections is bacteria from the bowels. The bacteria get onto theskin around the opening of the urethra. From there, they can get into the urine and travel up to thebladder, causing inflammation and infection. This usually happens because of: Wiping improperly after urinating. Always wipe from front to back. Bowel incontinence Procedures such as having a catheter inserted Older age Not emptying your bladder. This can allow bacteria a chance to grow in your urine. Dehydration Constipation Sex Use of a diaphragm for controlTreatmentBladder infections are diagnosed by a urine test. They are treated with antibiotics and usually clear upquickly without complications. Shanita tment helps prevent a more serious kidney infection. 5 General Instructions [facility] Emergency Department [address] [place] [address] Phone #: ext- [phone] 06/03/2020 16:05 Patient: NI DIAZ Sex: F : 1980 Age: 40yMedicinesMedicines can help in the treatment of a bladder infection: Take antibiotics until they are used up, even if you feel better. It is important to finish them to make sure the infection has cleared. You can use acetaminophen or ibuprofen for pain, fever, or discomfort, unless another medicine was prescribed. If you have chronic liver or kidney disease, talk with your healthcare provider before using these medicines. Also talk with your provider if you've ever had a stomach ulcer or gastrointestinal bleeding, or are taking blood-thinner medicines. If you are given phenazopydridine to reduce burning with urination, it will cause your urine to become a bright orange color. This can stain clothing.Care and preventionThese self-care steps can help prevent future infections: Drink plenty of fluids to prevent dehydration and flush out your bladder. Do this unless you must restrict fluids for other health reasons, or your doctor told you not to. Proper cleaning after going to the bathroom is important. Wipe from front to back after using the toilet to prevent the spread of bacteria. Urinate more often. Don't try to hold urine in for a long time. Wear loose-fitting clothes and cotton underwear. Avoid tight-fitting pants. Improve your diet and prevent constipation. Eat more fresh fruit and vegetables, and fiber, and less junk and fatty foods. Avoid sex until your symptoms are gone. Avoid caffeine, alcohol, and spicy foods. These can irritate your bladder. Urinate right after intercourse to flush out your bladder. If you use control pills and have frequent bladder infections, discuss it with your doctor.Follow-up careCall your healthcare provider if all symptoms are not gone after 3 days of treatment. This is especiallyimportant if you have repeat infections.If a culture was done, you will be told if your treatment needs to be changed. If directed, you cancall to find out the results. 6 General Instructions [facility] Emergency Department [address] [place] [address] Phone #: ext- [phone] 06/03/2020 16:05 [id number] Sex: F : 1980 Age: 40yIf X-rays were done, you will be told if the results will affect your treatment.Call [phone] if any of the following occur: Trouble breathing Hard to wake up or confusion Fainting or loss of consciousness Rapid heart rateWhen to seek medical adviceCall your healthcare provider right away if any of these occur: Fever of 100.4F (38.0C) or higher, or as directed by your healthcare provider Symptoms are not better by the third day of treatment Back or belly (abdominal) pain that gets worse Repeated vomiting, or unable to keep medicine down Weakness or dizziness Vaginal discharge Pain, redness, or swelling in the outer vaginal area (labia) [phone] [employer]. [address] [place] [address], [place] [address]. All rights reserved. This information is not intended as asubstitute for professional medical care. Always follow your healthcare professional's instructions. You have been given the following additional information: Anemia, Type Not Specified (Adult) Bladder Infection, Female (Adult)(Electronically signed by TROY Andres 06/04/2020 10:17) Name Value Range Interpretation Code Description Data Sumaya rce(s) Supporting Document(s) ID Date Data Source [id number] 06/03/2020 04:15:00 PM EDT [facility] 1 Clinical Report - Nurses [facility] Emergency Department [address] [place] [address] Phone #: ext- [phone] 06/03/2020 16:05 Patient: NI DIAZ Sex: F : 1980 Age: 40yTRIAGEArrived by private vehicle. Historian: patient. Accompanied by family. ( pt has chronic GI bleed and GIissues. Pt reports she has a port (double lumen ) to right upper chest wall. Pt is TPN dependent neal poor vascular access. Pt usually gets blood transfusions though port. pt uses port daily. pt heparinin am. Hgb of 8 per patient.).Triage time: 16:08 06/03/2020. Acuity: LEVEL 3.Chief Complaint: ABNORMAL LAB.Alert. ( pt reports chronic generalized pain).Onset. (pt called today by dr wyatt). The patient has had weakness and difficulty breathing.Treatment RAIL BENDER:None. --16:13 06/03/20 Wanda Berger R.N.16:08 06/03/20. BP: 113/74. HR: 113. RR: 21. O2 satur ation: 100%. Temp: 98.2 F. Pain level now 5/10.--16:13 06/03/20 Wanda Berger R.N.Weight: 68 kg. Height/Length: 67 inches. BMI: 23.5. --16:07 06/03/20 Wanda Berger R.N.MedicationsAmbien Oral 7.5, daily as needed, at bedtime, via J tube. Benadryl IV 50mg QDAY for nausea, 2x a day. Carafate Oral 1 gm, q4h, via J tube. Creon Oral (Capsule Delayed Release Particles [id number] unit) 1 capsule, 4x a day, J tube. FLUoxetine HCl Oral 20 mg, daily, via J tube. Ondansetron HCl Injection 8 mg IVP, q8h as needed. oxyCODONE HCl Oral 100/5 ml; 1ML, 4x a day as needed, via J tube. Protonix Intravenous (Solution Reconstituted 40 mg), 2x a day. Tylenol Oral, as needed. --16:17 06/03/20 Wanda Berger R.N. Lovenox Subcutaneous (Solution 80 mg/0.8mL) 70 mg, 2x a day. --16:51 06/03/20 Jeff Metcalf RN.AllergiesLevaquin.(hives)NSAID.Sulfa Antibiotics.(Anaphylaxis) --16:17 06/03/20 Wanda Berger R.N.Medication/allergy information source: the patient. --16:13 06/03/20 Wanda Berger R.N.HistoryPAST MEDICAL HX: Immunizations: up-to-date. Last normal menstrual period- hysterectomy. Denies 2 [facility] [facility] [address] [place] [address] Phone #: ext- [phone] 06/03/2020 16:05 [id number] Sex[facility] : 1980 Age: 40y current . SOCIAL HX: Never smoker. No alcohol use or drug use. The patient was offered HIV testing but declined and hepatitis C testing but declined. The patient has not traveled outside the [place] Infectious disease exposure: No infectious disease exposure. SELF HARM ASSESSMENT: Self harm assessment was performed. The patient answered "no" to the question(s) "Have you recently felt down, depressed, or hopeless?", "Do you have thoughts of harming or killing yourself?", "Do you have a plan for harming or killing yourself?", & quot;Have you recently had thoughts about harming or killing others?", "Do you have any dangerous items in your possession?", "Have you noticed less interest or pleasure in doing things?", "Are you here because you tried to hurt yourself?" and "Have you ever tried to hurt yourself before today?". ABUSE ASSESSMENT: Abuse assessment. No suspicion of abuse. No report of abuse. NUTRITIONAL RISK ASSESSMENT: The nutritional risk assessment revealed no deficiencies. FUNCTIONAL ASSESSMENT: Functional assessment: no impairments noted. LEARNING NEEDS ASSESSMENT: The learning needs assessment revealed no barriers. FALL RISK ASSESSMENT: Fall risk assessment completed per protocol. SKIN INTEGRITY ASSESSMENT: Skin integrity risk assessment completed. No skin integrity risk identified. --16:13 06/03/20 Wanda Berger R.N.PHYSICAL ASSESSMENTAmbulatory to room.GENERAL / NEURO / PSYCH: Alert. Oriented X 4. Appears in pain and in distress.HEENT: Pupils equal, round and reactive to light. No facial asymmetry noted. Mucous membranes arepink.RESPIRATORY: Respirations not labored. Chest nontender. Breath sounds within normal limits.CVS: Cardiac rhythm: sinus tachycardia. Capillary refill less than 2 seconds. Pulses within normal limits.GI / : Abdomen soft and normal bowel sounds. Abdominal tenderness in the left side of the abdomen,right lower quadrant and left lower quadrant.SKIN: Skin intact. Skin is pale. Skin is warm and dry. Normal skin turgor. --16:23 06/03/20 STACIE Javier.NURSING PROGRESS NOTESThe plan of care for this patient has been created. Monitoring of patient in place. Patient gowned. Headof bed elevated. Reassurance given. Call light placed in reach. Bed placed in lowest position. Brakesof bed on. Patient ready for evaluation. --16:14 06/03/20 Wanda Berger R.N. 16:25 06/03/2020 Site #1 started via IV in the right with an 18g angiocath, with aseptic technique and good blood return; one attempt. Saline lock flushed with 10 mL saline (pt has a dual port Galicia catheter to 3 Clinical Report - Nurses [facility] Emergency Department [address] [place] [address] Phone #: ext- [phone] 06/03/2020 16:05 Patient: NI DIAZ Sex: F : 1980 Age: 40yright anterior chest). --16:25 06/03/20 SERGE Leonardoatistephanie ID band checked for patient name and birthdate: patient confirmed. Blood samples drawn withVacutainer by nurse per protocol ; labeled in presence of the patient and sent to lab: rainbow set and greentop; cardiac enzymes (1st set). Galicia catheter accessed. Initial blood discarded. Line flushed with 10mL normal saline post blood draw. --16:35 06/03/20 Jeff Metcalf RN16:35 06/03/20. BP: 127/76. MAP: 93. HR: 106. RR: 16. O2 saturation: 100%. Pain level now: 04/29.--16:36 06/03/20 Jeff Metcalf RN16:52 06/03/2020 Started bag #1 500 mL IV Fluids NS; at 75 mL/hr over 8 hour(s) via site #1 via IV pump.Allergies verified and confirmed 5 rights. IV patency established. IV site checked: no pain, redness, orswelling. IV flushed thoroughly pre- and post-medication administration. Information reviewed with patientincluding reason for taking this medication. Verbalizes understanding. --16:52 06/03/20 Jeff Metcalf RN16:58 06/03/2020 Morphine IVP 2 mg given over 2 minute(s) via site #1. Allergies verified and confirmed 5rights. IV patency established. IV site checked: no pain, redness, or swelling. IV flushed thoroughly pre-and post-medication administration. IVP given by RN. Information reviewed with patient including reasonfor taking this medication and sedative warning. Verbalizes understanding. --16:58 06/03/20 Jeff Metcalf RN16:58 06/03/2020 Zofran (Ondansetron HCl) IVP 4 mg given over 2 minute( s) via site #1. Allergies verifiedand confirmed 5 rights. IV patency established. IV site checked: no pain, redness, or swelling. IV flushedthoroughly pre- and post-medication administration. IVP given by RN. Information reviewed with patientincluding reason for taking this medication. Verbalizes understanding. --16:58 06/03/20 Jeff Metcalf RN16:58 06/03/2020 Started 40 mg of Protonix (Pantoprazole Sodium) IVPB in bag #1 100 mL; at 200 mL/hrover 30 minute(s) via site #1. via IV pump. Allergies verified and confirmed 5 rights. IV patency established.IV site checked: no pain, redness, or swelling. IV flushed thoroughly pre- and post-medicationadministration. Information reviewed with patient including reason for taking this medication. Verbalizesunderstanding. --16:58 06/03/20 Jeff Metcalf RN17:02 06/03/20. BP: 108/60. MAP: 76. HR: 101. RR: 20. O2 saturation: 100%. --17:02 06/03/20 Brittany Fong RN17:10 06/03/2020 Protonix IVPB via IV site #1 Discontinued: infused. Total amount infused: 100 mL. IVpatency established. IV site checked: no pain, redness, or swelling. IV flushed thoroughly. --17:34 06/03/20Jeff Metcalf RN18:19 06/03/20. BP: 152/92. MAP: 112. HR: 95. RR: 38. O2 saturation: 97%. --18:19 06/03/20 Shobha Neil ER Baeu390:[id number] 06/03/2020 Morphine IVP 2 mg given over 2 minute(s) via site #1. Allergies verified and confirmed 5rights. IV patency established. IV site checked: no pain, redness, or swelling. IV flushed thoroughly pre- 4 Clinical Report - Nurses [facility] Emergency Department [address] [place] [address] Phone #: ext- [phone] 06/03/2020 16:05 Patient: NI DIAZ Sex: F : 1980 Age: 40y and post-medication administration. IVP given by RN. Information reviewed with patient including reason for taking this medication and sedative warning. Verbalizes understanding. --18:39 06/03/20 Jeff Metcalf RN 18:40 06/03/2020 Zofran (Ondansetron HCl) IVP 4 mg given over 2 minute(s) via site #1. Allergies verified and confirmed 5 rights. IV patency established. IV site checked: no pain, redness, or swelling. IV flushed thoroughly pre- and post-medication administration. IVP given by RN. Information reviewed with patient including reason for taking this medication. Verbalizes understanding. --18:40 06/03/20 Jeff Metcalf RN 18:45 06/03/20. BP: 96/71. MAP: 79. HR: 95. RR: 16. O2 saturation: 100%. Pain level now: 04/29. --18:45 06/03/20 Jeff Metcalf RN 19:08 06/03/20. BP: 102/63. MAP: 76. HR: 94. RR: 18. O2 saturation: 100%. --19:09 06/03/20 Brittany Fong RN 19:29 06/03/20. BP: 102/63. MAP: 76. HR: 94. RR: 21. O2 saturation: 100%. Temp: 98.7 F. --19:30 06/03/20 Jace Najera R.N. Two patient identifiers checked. Call light placed in reach. Side rails up x 2. Bed placed in lowest position. Brakes of bed on. --19:30 06/03/20 Jace Najera R.N. 19:43 06/03/2020 Started 1 gm of ROCEPHIN (1GM/50ML) (cefTRIAXone Sodium) IVPB in bag #1 50 mL; at 100 mL/hr over 30 minute(s) via site #1. via IV pump. Allergies verified and confirmed 5 rights. IV patency established. IV site checked: no pain, redness, or swelling. IV flushed thoroughly pre- and post-medication administration. Information reviewed with patient including reason for taking this medication. Verbalizes understanding. --19:43 06/03/20 Jeff Metcalf RN 19:55 06/03/2020 IV Fluids NS via IV site #1 Discontinued: STOPPED. Total amount infused: 300 mL. IV patency established. IV site checked: no pain, redness, or swelling. IV flushed thoroughly. --20:06/03/20 Jeff Metcalf RN 20:05 06/03/2020 ROCEPHIN (1GM/50ML) IVPB via IV site #1 Discontinued: infused. Total amount infused: 50 mL. IV patency established. IV site checked: no pain, redness, or swelling. IV flushed thoroughly. --20:06/03/20 Jeff Metcalf RN 20:19 06/03/2020 Site #1 removed (flushed each port with 300 units of heparin). --:06/03/20 Jeff Metcalf RN.DISPOSITION / DISCHARGE 19:06/03/20. BP: 10 5/61. MAP: 75. HR: 93. RR: 19. O2 saturation: 100%. Temp: 98.1 F. --19:06/03/20 Brittany Fong RN Condition at departure: improved and stable. Discharge instructions provided and reviewed with the patient. Patient verbalized understanding. Written instructions provided in Prydeinig. 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 She was discharged home and accompanied by spouse. She left ambulatory and via private vehicle. Spouse driving. --20:06/03/20 Jeff Metcalf RN 20:21 06/03/20. Pain level now: 03/30. --20:21 06/03/20 Jeff Metcalf RN.Locked/Released at 06/03/2020 20:21 by Jeff Metcalf RN Name Value Range Interpretation Code Description Data Sumaya rce(s) Supporting Document(s) ID Date Data Source [id number] 0001 06/03/2020 04:15:00 PM EDT [facility] 1 Clinical Report - Physicians/Mid Levels [facility] Emergency Department [address] [place] [address] Phone #: ext- [phone] 06/03/2020 16:05 Patient: NI DIAZ Sex: F : 1980 Age: 40y Time Seen: 16:20 06/03/2020. Arrived- By private vehicle. Historian- patient. RETURN VISIT: recently seen in this ED by another ED physician. Seen now for a new unrelated complaint and the same problem as before. Disposition decision: 20:15 06/03/2020.HISTORY OF PRESENT ILLNESS Chief Complaint: chronic GI bleeding, generalized weakness, SOB, L sided abd pain. This started about 2 weeks ago and has been moderate. (Pt states she has hx of multiple bowel surgeries and has had chronic lower GI bleeding for yr, recently seen here for tachycardia, had f/u with PCM and was called by PCM today and told to go to ED because HGB/HCT had dropped. States she has had increasing generalized weakness, SOB, and tachycardia and L sided abd pain for about 1 week. Has had majority of bowel surgeries at [facility], is TPN dependent, port L chest. Hx of PE, on lovenox.). The patient has had mild rectal bleeding and abdominal pain. The pain is described as located in the left side of the abdomen and LLQ. but not had dark stools, rectal pain or hard stools. No constipation, nausea or diarrhea. No recent travel. No known contact with a sick individual. Similar symptoms previously. Patient has had similar symptoms several times. Recent medical care: The patient was seen recently at this facility in the emergency department.REVIEW OF SYSTEMS The patient has had constant, generalized weakness, she has had similar symptoms previously. Has had a hysterectomy. No dizziness, fainting episodes, abnormal bleeding, vaginal discharge or fever. No blurred vision, sore throat, epistaxis, cough or chest pain. No hematuria, skin rash, enlarged lymph nodes, chills or joint pain. The patient has had difficulty breathing (increasing SOB).PAST HISTORY See nurses notes. Problems: Gastric ulcer. G-Tube Replacement. Back Injury. Abdominal Pain. Cellulitis. Gastroparesis. GI Bleeding. Fever. Constipation. 2 Clinical Report - Physicians/Mid Levels [facility] Emergency Department [address] [place] [address] Phone #: ext- [phone] 06/03/2020 16:05 Patient: NI DIAZ [facility]#: [id number] Sex: F : 1980 Age: 40yAnemia.Back Pain.Sepsis (disorder).Pulmonary Embolism.Respiratory Distress.UTI - Urinary Tract Infection.Status Epilepticus.Hypoxia.Sinus Tachycardia.Other Disease.Hypokalemia.GI Disease.Malabsorption syndrome.Lung Disease.Additional Surgeries:Abd for obstruction.Bariatric Surgery.Bowel resection.Bowel Resection [2016].Cholecystectomy.Feeding Tube Placement.Gastric bypass.Gastric bypass reversal [08/2019].Gastric Resection [2009].GI bleed clipping.G-Tube Placement.Hysterectomy.J-tube placement.J-Tube placement.Life port removed.Lifeport [10/2017].Portacath left chest.Nadege-en-Y gastrojejunostomy [2009].Spinal fusion.Spinal fusion.Medications:Lovenox Subcutaneous (Solution 80 mg/0.8mL) 70 mg, 2x a day.Ambien Oral 7.5, daily as needed, at bedtime, via J tube.Benadryl IV 50mg QDAY for nausea, 2x a day.Carafate Oral 1 gm, q4h, via J tube.Creon Oral (Capsule Delayed Release Particles [id number] unit) 1 capsule, 4x a day, J tube.FLUoxetine HCl Oral 20 mg, daily, via J tube. 3 Clinical Report - Physicians/Mid Levels [facility] Emergency Department [address] [place] [address] Phone #: ext- [phone] 06/03/2020 16:05 Patient: NI DIAZ Sex: F : 1980 Age: 40y Ondansetron HCl Injection 8 mg IVP, q8h as needed. oxyCODONE HCl Oral 100/5 ml; 1ML, 4x a day as needed, via J tube. Protonix Intravenous (Solution Reconstituted 40 mg), 2x a day. Tylenol Oral, as needed. Allergies: Levaquin.(hives) NSAID. Sulfa Antibiotics.(Anaphylaxis).SOCIAL HISTORY Never smoker. No alcohol use or drug use. No recent travel.ADDITIONAL NOTES The nursing notes have been reviewed with agreement regarding the chief complaint, HPI, ROS, PMH and patient medications and allergies.PHYSICAL EXAM Vital Signs: 06/03/2020 19:08 BP: 102/63. MAP: 76. HR: 94. RR: 18. O2 saturation: 100%. 06/03/2020 16:08 BP: 113/74. MAP: 87. HR: 113. RR: 21. O2 saturation: 100%. Temp: 98.2 F. Have been reviewed as abnormal and appear to be correct. Blood pressure normal. Mean arterial pressure- normal. Tachycardic. Tachypneic. Temperature normal. Oxygen saturation normal. Appearance: Alert. Oriented X3. Anxious. Appears to be in pain. She appears ill, shows apparent trauma, is pale and is moderately nourished. Patient in moderate distress. Eyes: Pupils equal, round and reactive to light. Eyes normal inspection. ENT: Ears normal. Nose normal. Pharynx normal. Neck: Normal inspection. Neck supple. CVS: Tachycardia. Normal heart rhythm. Heart sounds normal. Pulses normal. Respiratory: No respiratory distress. Painless inspiration. Breath sounds normal. Abdomen: Soft. Moderate tenderness in the left side of the abdomen and left lower quadrant. Bowel sounds normal. No organomegaly. No mass. Femoral pulses equal. Back: Normal inspection. Rectal: Rectal exam normal and nontender. Stool color normal. Skin: Skin warm and dry. Normal skin color. No rash. Normal skin turgor. Extremities: Extremities exhibit normal ROM. No lower extremity edema. Neuro: Oriented X 3. No motor deficit. No sensory deficit. Reflexes normal.LABS, X-RAYS, AND EKG Abdominal CT: NAD. 9 mm L ovarian cyst. Study type: abdomen and pelvis. Abdominal CT performed with IV contrast. The study was independently viewed by me and interpreted by the radiologist and contemporaneously by me. Interpretation time: 18:21 06/03/2020. CTA Pulmonary Arteries: NAD. The CTA was performed with contrast. The study was independently viewed by me and interpreted by the radiologist and contemporaneously by me. Interpretation time: 18:23 06/03/2020. Laboratory Tests: Laboratory tests have been ordered, with results reviewed and considered in the 4 Clinical Report - Physicians/Mid Levels [facility] Emergency Department [address] [place] [address] Phone #: ext- [phone] 06/03/2020 16:05 [id number] Sex: F : 1980 Age: 40ymedical decision making process.CT CTA CHEST NON- CORONARY W CON INC PP: (LUISANA: 06/03/2020 17:01) ( MsgRcvd 06/03/2020 19:15) InProgressCT CTA CHEST NON-CORONARY W CON INC PPReason(s): tachycardia, SOB, prior hx PETRANSPORTATION: S IV? IV?(Yes) O2? Oxygen?(No) RoCT Abd PEL W/ IV Contrast Only: (LUISANA: 06/03/2020 16:48) ( [facility] 06/03/2020 19:15) In ProgressCT ABDReason(s): L sided abd pain, tachycardia, multiple bowel surgeriesTRANSPORTATION: S IV? IV?(Yes) O2? Oxygen?(No) RoOccult Blood Stool Diagnostic 1 slide: (LUISANA: 06/03/2020 15:30) ( [facility] 06/03/2020 18:24)Final results Test Result Flag Units (Reference) OCCULT BLOOD NEGATIVE (NORMAL: NEGAT OCCULT BLOOD REENTER NEGATIVE (NORMAL: NEGAT { HEMOCCULT LOT # [id number] ){ LOT EXP [id number] ){ PROCEDURAL CONTROL POS/NEG VALID)D-Dimer: (LUISANA: 06/03/2020 16:34) ( [facility] 06/03/2020 17:56) Final results Test Result Flag Units (Reference) D-DIMER QUANT <0.27 ug/mL (0.27 - 0.50)BNP: (LUISANA: 06/03/2020 16:34) ( [facility] 06/03/2020 17:12) Final results Test Result Flag Units (Reference) BNP 15 PG/ML (0 - 125)CBC w Diff: (LUISANA: 06/03/2020 16:34) ( [facility] 06/03/2020 16:53) Final results Test Result Flag Units (Reference) CBC W/AUTOMATED DIFF COMPLETE BLOOD COUNT WBC 9.0 10/uL (4.2 - 11.0) RBC 3.46 L 10/uL (4.20 - 5.40) HEMOGLOBIN 9.1 L g/dL (12.0 - 16.0) HEMATOCRIT 28.3 L % (37.0 - 47.0) MCV 81.8 fL (81.0 - 101) MCH 26.3 L pg (27.0 - 34.0) MCHC 32.2 g/dL (31.0 - 36.0) RDW 15.4 H % (11.5 - 14.5) PLATELETS 465 H 10/uL (150 - 450) MPV 9.0 fL (7.4 - 10.4) NEUT 66.4 % (37.0 - 80.0) LYMPH 22.3 L % (25.0 - 40.0) MONO 7.9 % (3.0 - 8.0) EOS 2.4 % (0.0 - 7.0) BASO 0.6 % (0.0 - 2.5) %IG 0.4 H % (0.0 - 0.0) %NRBC 0.0 % (0.0 - 0.0) #NEUT 5.98 10/uL (2.00 - 6.90) 5 Clinical Report - Physicians/Mid Levels [facility] Emergency Department [address] [place] [address] Phone #: ext- [phone] 06/03/2020 16:05 Patient: NI DIAZ Sex: F : 1980 Age: 40y #LYMPH 2.01 10/uL (0.60 - 3.40) #MONO 0.71 10/uL (0.00 - 0.90) #EOS 0.22 10/uL (0.00 - 0.70) #BASO 0.05 10/uL (0.00 - 0.20) #IG 0.04 10/uL (0.00 - 0.10) #NRBC 0.00 10/uL (0.00 - 0.00) MANUAL DIFF NOT INDICATED RBC MORPH NOT INDICATEDCMP: (LUISANA: 06/03/2020 16:34) ( MsgRcvd 06/03/2020 17:00) Final results Test Result Flag Units (Reference) COMPREHENSIVE METABOLIC PANEL COMPREHENSIVE METABOLIC PANEL SODIUM 139 mEq/L (134 - 153) POTASSIUM 3.6 mEq/L (3.6 - 5.0) CHLORIDE 104 mEq/L (98 - 107) CO2 22 MEQ/L (22 - 30) GLUCOSE 127 H MG/DL (65 - 110) BUN 9 MG/DL (7 - 21) CREATININE 0.7 MG/DL (0.7 - 1.5) BUN/CREAT 13 (8 - 27) TOTAL PROTEIN 6.5 G/DL (6.3 - 8.2) ALBUMIN 4.3 G/DL (3.9 - 5.0) GLOBULIN 2.2 L GM/DL (2.4 - 3.2) A/G RATIO 2.0 (0.8 - 2.0) CALCIUM 9.2 MG/DL (8.4 - 10.2) TOTAL BILI <0.7 MG/DL (0.2 - 1.3) ALKALINE PHOS 81 U/L (38 - 126) SGOT/AST 12 U/L (5 - 40) SGPT/ALT 14 U/L (7 - 56) ANION GAP 13.0 mmol/L (8.0 - 16.0) AGE 40 yrs NON-AA GFR >60 mL/min AFR AMER GFR >60 mL/min Male GFR Interprentation 20-49 yrs >60 mL/min Klxxav02-26 yrs >56 mL/min Normal 60-69 yrs >49 mL/min Normal 70-79yrs>42 mL/min Normal 80 and above >35 mL/min Normal Female GFRInterpretation 20-39 yrs >60 mL/min Normal 40-49 yrs >58 mL/minNormal 50-59 yrs >51 mL/min Normal 60-69 yrs >45 mL/min Lkvkdv79-86 yrs >39 mL/min Normal 80 and above >32 mL/min NormalLactic Acid: (LUISANA: 06/03/2020 16:34) ( [facility] [place] 16:45) Final results Test Result Flag Units (Reference) LACTIC ACID 2.4 H MMOL/L (0.2 - 2.2)PT/PTT: (LUISANA: 06/03/2020 16:34) ( OhgRcvd 06/03/2020 17:31) Final results Test Result Flag Units (Reference) PROTIME 12.4 SECONDS (11.0 - 15.5) INR 0.91 L (0.93 - 1.23) PTT 25.8 SECONDS (24.8 - 36.7) \\BLDo\\INR INTERPRETATION\\BLDx\\ Therapeutic range for Coumadin andrelated oral anticoagulants. -International Normalized Ratio (INR): 2.0 - 3.0 for VenousThrombosis, Pulmonary Embolus, Tissue heart valves, Acute RI Atrial Fibrillation, Valvular heart diseaseand recurrent Systemic Embolism. -International Normalized Ratio (INR): 2.5 - 3.5 forMechanical Prosthetic valve. 6 Clinical Report - Physicians/Mid Levels [facility] Emergency Department [address] [place] [address] Phone #: ext- [phone] 06/03/2020 16:05 Patient: NI DIAZ Sex: F : 1980 Age: 40y Troponin-T: (LUISANA: 06/03/2020 16:34) ( [facility] 06/03/[place] 17:00) Final results Test Result Flag Units (Reference) TROPONIN T <0.01 NG/ML (0.00 - 0.10) TROPONIN T0.1 ng/ml Recommended as the clinical threshold value forTroponin T. Urinalysis: (LUISANA: 06/03/2020 18:20) ( [facility] 06/03/[place] 19:02) Final results Test Result Flag Units (Reference) URINALYSIS URINALYSIS SOURCE R COLOR yellow (NORMAL: Yello CLARITY hazy (NORMAL: Clear SPEC GRAVITY 1.010 (1.001 - 1.030 pH 6.5 (5 - 9) GLUCOSE NORM (NORMAL: Negat BILIRUBIN NEG (NORMAL: Negat KETONE NEG (NORMAL: Negat PROTEIN 15 (NORMAL: Negat NITRITE NEG (NORMAL: Negat BLOOD 10 A (NORMAL: Negat LEUK EST 25 (NORMAL: Negat UROBILINOGEN NOR (less than 1.0 MICROSCOPIC See Below WBC 0 - 1 (NORMAL: NONE RBC 0 - 1 (NORMAL: NONE EPITHELIAL MODERATE A (NORMAL: NONE BACTERIA Trace (NORMAL: NONE Type and Screen: (LUISANA: 06/03/2020 16:34) ( MsgRcvd 06/03/2020 18:02) Final results Test Result Flag Units (Reference) ABO G ROUP O RH TYPE NEGATIVE AB SCREEN NEGATIVE (NORMAL: NEGAT { ABO/RH REENTER O NEGATIVE{ AB SCREEN RE-ENTER NEGATIVE.PROGRESS AND PROCEDURES Course of Care: 17:01 Jun 03 2020. Awaiting CTA chest/CTAB results 19:42 Jun 03 2020. s/s c/w chronic anemia with chronic GI bleed, pt today with HGB/HCT 9.1 and 28, HR in 90's low 100's on monitor throughout ED course and stable BP throughout ED course, pt also with LLQ abd pain, CTA chest and CTAB neg for acute, UA positive for ? mild UTI, pt alert, and feeling improved after protonix, pain meds in ED. Will give IV rocephin here for UTI since pt has port, and recommend PCM/GI f/u x 3 days and as scheduled. Advised return precautions. Disposition: Discharged home in good and improved condition. Discharge decision based on the following: patient's condition is stable; patient's condition is improved; patient's exam is stable; patient's exam is improved; moderately abnormal test results; improving condition on repeat evaluation; social support is adequate; transportation is available; follow-up is available; clinical 7 Clinical Report - Physicians/Mid Levels [facility] Emergency Department [address] [place] [address] Phone #: ext- [phone] 06/03/2020 16:05 Patient: NI DIAZ Sex: F : 1979 Age: 40y impression is consistent with outpatient treatment.CLINICAL IMPRESSION Anemia (chronic anemia secondary to chronic lower GI bleeding). Acute urinary tract infection. Not associated with indwelling catheter or obstruction.INSTRUCTIONS Warnings: Further evaluation is necessary. It is very important to follow up with a healthcare provider. GENERAL WARNINGS: Return or contact your physician immediately if your condition worsens or changes unexpectedly, if not improving as expected, or if other problems arise. Specifically return if pain, vomiting, bleeding, breathing difficulty or fever. Your Current Medications: CONTINUE TAKING THE FOLLOWING MEDICATIONS: Ambien Oral : 7.5 daily, prn, at bedtime, via J tube. Benadryl IV 50mg QDAY for nausea* : 2x a day. Carafate Oral : 1 gm q4h, via J tube. Creon Oral : Capsule Delayed Release Particles [id number] unit, 1 capsule 4x a day, J tube. Lovenox Subcutaneous : Solution 80 mg/0.8mL, 70 mg 2x a day. oxyCODONE HCl Oral : 100/5 ml; 1ML 4x a day, prn, via J tube. Protonix Intravenous : Solution Reconstituted 40 mg, 2x a day. Tylenol Oral : prn. Follow-up: Follow up with your healthcare provider in three days even if well. Call for the next available appointment. Reason for referral: evaluation and f/u with [facility] in [place] as scheduled for further evaluation of anemia with chronic GI bleeding. Summary of care provided to patient and family via paper. Understanding of the discharge instructions verbalized by patient and family. Expected course of illness, discharge instructions, activity level, prescriptions x1, follow-up appointment and risks and benefits of treatment reviewed with patient and spouse and understanding verbalized. Agrees to plan of care.(Electronically signed by TROY Andres 06/04/2020 10:17) Name Value Range Interpretation Code Description Data Sumaya rce(s) Supporting Document(s) ID Date Data Source [id number] 06/03/2020 04:15:00 PM EDT [facility] NI Perkins VisitID: [id number] Date: 10:04Lab results reviewed by Dr Fong. Urine culture sensitvity results show Proteus mirabilis/foicgoi81,000-25,000 cfu/ml Patient was given Rocephin in ED. Cell count low no further treatment required.(Electronically signed by Zenaida Riggins RN - 06/09/2020 10:04) Name Value Range Interpretation Code Description Data Sumaya rce(s) Supporting Document(s) ID Date Data Source [id number] 06/06/2020 08:09:00 PM EDT [facility] [address] [place] [address] PHONE: [phone] FAX: [phone] Name ..............: BASILIO DAN LAcct Number ......................: [id number] ROOM. ............: TR-03 Number ............................: [id number] Stay type.........: E/R Discharge Date...............:06/03/20 Admit Date .....: 06/03/20 [facility]........[facility] Date of ..: 1980 Family Phys ...........................: MITA ROCHE Phone..............: [phone] Age.................................:40 Film# ...............:[id number] Sex.................................:F Unsigned transcriptions are preliminary reports and do [place] [id number] COMPLETE:06/04/20 08:23 [facility] [id number] Please See Scanned Results. Name Value Range Interpretation Code Description Data Sumaya rce(s) Supporting Document(s) ID Date Data Source [id number] 06/06/2020 02:08:00 PM EDT [facility] [address] [place] [address] PHONE: [phone] FAX: [phone] Name .................. : BASILIO Torres Acct Number.................. : [id number] ROOM. ................. : [facility] MR Number ................... : [id number] Stay type ............. : E/R Discharge Date......... ... : 06/03/20 Admit Date ......... : 06/03/20 Admit Phys .................... : DESIREE CESPEDES Date of ....... : 1980 Family Phys ................... : [facility] Phone .................. : [phone] Age ................................ : 40 Film# .................. .:[id number] Sex ................................. : F Unsigned transcriptions are preliminary reports and do not represent a medical or legal document CT ABD & PELVIS W/ IV ONLY [id number] COMPLETE:06/03/20 19:15 RLB 87029 Reason(s): L sided abd pain, t achycardia, multiple bowel surgeries CT OF THE ABDOMEN AND PELVIS WITH CONTRAST: INDICATION: Left-sided abdominal pain, tachycardia and multiple bowel surgeries. FINDINGS: There is normal contrast CT appearance of the liver, spleen, pancreas, adrenal glands and kidneys. The patient is status post cholecystectomy. There is no evidence of biliary duct dilatation. A small hiatal hernia is noted. A jejunostomy tube is noted. The patient appears to be status post gastric surgery. The visualized bowel is normal in caliber. No bowel wall thickening. The appendix is not definitively visualized. The bladder is minimally distended which limits evaluation. There is a 9 mm left ovarian cyst, not completely characterized on this examination. No acute osseous abnormality. The patient is status post L4 through S1 posterior fusion without evidence of acute hardware complication. IMPRESSION: 1. No acute intraabdominal process. 2. 9 mm left ovarian cyst not completely characterized on this examination. While performing the above CT examination, radiation dose reduction was accomplished utilizing automated exposure control, adjusting of the mA and kV based on the patient's body size and/or the use of imperative reconstructive techniques. CT dose: 750.2 mGycm Page 1 of 2 [place] [address] PHONE: [phone] FAX: [phone] Name .................. : BASILIO DAN Melissa Acct Number.................. : [id number] ROOM. ................. : TR-03 Number ................... : [id number] Stay type ............. : E/R Discharge Date......... ... : 06/03/20 Admit Date ......... : 06/03/20 Admit Phys .................... : DESIREE CESPEDES Date of ....... : 1980 Family Phys ................... : MITA ROCHE Phone .................. : [phone] Age ................................ : 40 Film# .................. .:[id number] Sex ................................. : F Unsigned transcriptions are preliminary reports and do not represent a medical or legal document CT ABD & PELVIS W/ IV ONLY [id number] COMPLETE:06/03/20 19:15 RLB 47034 Reason(s): L sided abd pain, tachycardia, multiple bowel surgeries Electronically Reviewed and Signed By Eleuterio Dukes M.D. , 06/06/20 14:08, [place] Transcribe Initials: DZ , Transcribe Date: 06/04/20 10:12, Dictation Date: Copy for: EBENEZER Morales via fax Copy for: EMERGENCY DEPT via modem Copy for: 710 MED REC DISCHARGED Page 2 of 2 Name Value Range Interpretation Code Description Data Sumaya rce(s) Supporting Document(s) ID Date Data Source [id number] 06/06/2020 02:08:00 [place] [address] PHONE: [phone] FAX: [phone] Name .................. : BASILIO Torres Acct Number.................. : [id number] ROOM. ................. : TR-03 MR Number ................... : [id number] Stay type ............. : E/R Discharge Date......... ... : 06/03/20 Admit Date ......... : 06/03/20 Admit Phys .................... : LENOREJEANE CESPEDES Date of ....... : 1980 Family Phys ................... : MITA ROCHE Phone .................. : [phone] Age ................................ : 40 Film# .................. .:[id number] Sex ................................. : F Unsigned transcriptions are preliminary reports and do not represent a medical or legal document CT CTA CHEST NON-CORONARY W C 44753 COMPLETE:06/03/20 19:15 RLB [id number] Reason(s): tachycardia, SOB, prior hx PE CTA OF THE CHEST WITH CONTRAST: INDICATION: Tachycardia, shortness of breath and prior pulmonary embolism. FINDINGS: The neck base is clear. The lungs are well expanded and grossly clear. There is trace atelectasis in the left lower lobe. The heart is normal in size. No lymphadenopathy. No evidence of coronary artery calcifications. There is no evidence of pulmonary embolism. A small hiatal hernia is noted. Please see separate report for upper abdominal details. No acute osseous abnormality. IMPRESSION: No acute pulmonary process. No evidence of pulmonary embolism. While performing the above CT examination, radiation dose reduction was accomplished utilizing automated exposure control, adjusting of the mA and kV based on the patient's body size and/or the use of imperative reconstructive techniques. CT dose: 376.4 mGycm Contrast agent in mL: 75 Isovue 370 Method of administration: Intravenous [address] [place] [address] [place] [address] PHONE: [phone] FAX: [phone] Name .................. : BASILIO Torres Acct Number.................. : [id number] ROOM. ................. : [facility] MR Number ................... : [id number] Stay type ............. : E/R Discharge Date......... ... : 06/03/20 Admit Date ......... : 06/03/20 Admit Phys .................... : DESIREE CESPEDES Date of ....... : 1980 Family Phys ................... : MITA ROCHE Phone .................. : [phone] Age ................................ : 40 Film# .................. .:[id number] Sex ................................. : F Unsigned transcriptions are preliminary reports and do not represent a medical or legal document CT CTA CHEST NON-CORONARY W C 43033 COMPLETE:06/03/20 19:15 RLB 65053 Reason(s): tachycardia, SOB, prior hx PE Electronically Reviewed and Signed By Eleuterio Dukes M.D. , 06/06/20 14:08, [place] Transcribe Initials: BECK , Transcribe Date: 06/04/20 10:09, Dictation Date: Copy for: EBENEZER Morales via fax Copy for: EMERGENCY DEPT via modem Copy for: 710 MED REC DISCHARGED Page 2 of 2 Name Value Range Interpretation Code Description Data Sumaya rce(s) Supporting Document(s) ID Date Data Source [id number] 06/09/2020 10:19:00 AM EDT [facility] Name Value Range Interpretation Code Description Data Sumaya rce(s) Supporting Document(s) CULTURE URINE [facility] CORRECTE D REPORT _CULTURE URINE_$$[id number]$$[id number]$$703120$$441355$$298096$$217131$$942021$$057252$$182480$$ 862423$$887532$$096159$$91127 5$$989209$$351223$$382889$$955297$$823463$$260993$$507714$$200185$$906674$$25489 7$$966285$$598862$$882479 -- Continued on next page --Patient: BASILIO Torres Order: [id number] Page 2Culture: CULTURE URINE Status: Final ====$$[id number] -- Continued on next page --Patient: BASILIO Torres Order: [id number] Page 2Culture: CULTURE URINE Status: Prel im = -- Continued on next page --Patient: BASILIO Torres Order: [id number] Page 2Culture: CULTURE URINE Status: Prelim =====$$[id number]$$[id number] DATE/TIME: 06/09/2020 10:07Culture: CULTURE URINE Status: FinalIsolate 1 Proteus mirabilis/penneri Flag: A . . . . . . .710,000-25,000 colony forming units per mLCefazolin <=4 ug/mLCefazolin with an ZHANE <=16 predicts susceptibility to the oral agentscefaclor, cefdinir, cefpodoxime, cefprozil, cefuroxime, cephalexin,and loracarbef when used for therapy of uncomplicated urinary tractinfections due to E. coli, Klebsiella pneumoniae, and Proteusmirabilis. Previous result entered on 06/08/2020 14:37 ET Proteus mirabilis/penneri Previous result entered on 06/07/2020 06:05 ET Proteus mirabilis/penneriUrine Culture,Comprehensive: [id number] mirabilis/penneri Flag: AIsolate 2 Escherichia coli Flag: A . . . . . . .15,000 Colonies/mLCefazolin <=4 ug/mLCefazolin with an ZHANE <=16 predicts susceptibility to the oral agentscefaclor, cefdinir, cefpodoxime, cefprozil, cefuroxime, cephalexin,and loracarbef when used for therapy of uncomplicated urinary tractinfections due to E. coli, Klebsiella pneumoniae, and Proteusmirabilis. Previous result entered on 06/08/2020 14:37 ET -- Continued on next page --Patient: BASILIO Torres Order: [id number] Page 3Culture: CULTURE URINE Status: Final===== Gram negative rodsEscherichia coli Flag: APatient: BASILIO Torres Order: [id number] Page 4Culture: CULTURE URINE Status: Final ====ISOLATE 1 Proteus mirabilis/penneriISOLATE 2 Escherichia coli Isolate 1 Isolate 2Antibiotic ZHANE Int ZHANE IntUnits ug/mL ug/mL ----Amoxicillin/Clavulanic Acid S S Ampicillin S S Cefepime S S Ceftriaxone S S Cefuroxime S S Ciprofloxacin S S Ertapenem S S Gentamicin S S Imipenem Levofloxacin S S Meropenem S S Nitrofurantoin R R Piperacillin/Tazobactam S S Tetracycline R R Tobramycin S S Trimethoprim/Sulfa S S P1 Test performed by: [facility] ZAMARRIPA #: [id number] [address] [place] [address] [id number] [facility] [id number] Director : Pascual Ceballos MD NPI #: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 . . . . . .8Gram negative rods Flag: A Isolate 1Antibiotic ZHANE IntUnits ug/mLAmoxicillin/Clavulanic Acid S S . . . . . .20-8Ampicillin S S . . . . . .28-1Cefepime S S . . . . . .6644-9Ceftriaxone S S . . . . . .141-2Cefuroxime S S . . . . . .145-3Ciprofloxacin S S . . . . . .185- 9Ertapenem S S . . . . . .15744-9Eudfvfjzvh S S . . . . . .267-5Levofloxacin S S . . . . . .18934-8Szkokalko S S . . . . . .6652-2Nitrofurantoin R R . . . . . .363- 2Piperacillin/Tazobactam S S . . . . . .412-7Tetracycline R R . . . . . .496-0Tobramycin S S . . . . . .508-2Trimethoprim/Sulfa S S . . . . . .516-5 ID Date Data Source [id number] 06/03/2020 07:02:00 PM EDT [facility] Name Value Range Interpretation Code Description Data Sumaya rce(s) Supporting Document(s) [facility] COL[facility] yellow NORMAL: Yellow [facility] CLARITY hazy NORMAL: Clear [facility] Specific gravity of Urine by Test strip 1.010 1.001 - 1.030 [facility] pH 6.5 5 - 9 [facility] Glucose [Mass/volume] in Urine by Test strip NORM NORMAL: Negat lucia [facility] Bilirubin.total [Presence] in Urine by Test strip NEG NORMAL: Negative [facility] Ketones [Presence] in Urine by Test strip NEG NORMAL: Negative [facility] Protein [Mass/volume] in Urine by Test strip 15 NORMAL: Negat lucia [facility] Nitrite [Presence] in Urine by Test strip NEG NORMAL: Negative [facility] BLOOD 10 NORMAL: Negative [facility] Leukocyte esterase [Presence] in Urine by Test strip 25 DELANO L: Negative [facility] Urobilinogen [Mass/volume] in Urine by Test strip NOR less tenisha n 1.0 mg/dL [facility] MICROSCOPIC See Below [facility] ital WBC 0 - 1 NORMAL: NONE SEEN [facility] Erythrocytes [#/volume] in Urine by Test strip 0 - 1 NORMAL: NON E SEEN [facility] EPITHELIAL MODERATE NORMAL: NONE SEEN [facility] Bacteria [Presence] in Urine sediment by Light microscopy Tr nick NORMAL: NONE SEEN [facility] ID Date Data Source [id number] 06/03/2020 06:02:00 PM EDT [facility] Name Value Range Interpretation Code Description Data Sumaya rce(s) Supporting Document(s) ABO group [Type] in Blood O [facility] Rh [Type] in Blood NEGATIVE [facility] AB SCREEN NEGATIVE NORMAL: NEGATIVE [facility] { ABO/RH REENTER O NEGATIVE{ AB SCREEN RE-ENTER NEGATIVE ID Date Data Source [id number] 06/03/2020 05:56:00 PM EDT [facility] Name Value Range Interpretation Code Description Data Sumaya rce(s) Supporting Document(s) Fibrin D-dimer FEU [Mass/volume] in Platelet poor plasma <0. 27 ug/mL 0.27 - 0.50 [facility] ID Date Data Source [id number] 06/03/2020 05:31:00 PM EDT [facility] Name Value Range Interpretation Code Description Data Sumaya rce(s) Supporting Document(s) Prothrombin time (PT) 12.4 SECONDS 11.0 - 15.5 [facility] INR in Platelet poor plasma by Coagulation assay 0.91 0.93 - 1. 23 L [facility] aPTT in Blood by Coagulation assay 25.8 SECONDS 24.8 - 36.7 [facility] \\BLDo\\INR INTERPRETATION\\BLDx\\ Therapeutic range for Coumadin and related oral anticoagulants. - International Normalized Ratio (INR): 2.0 - 3.0 for Venous Thrombosis, Pulmonary Embolus, Tissue heart valves, Acute RI Atrial Fibrillation, Valvular heart disease and recurrent Systemic Embolism. - International Normalized Ratio (INR): 2.5 - 3.5 for Mechanical Prosthetic valve. ID Date Data Source [id number] 06/03/2020 05:12:00 PM EDT [facility] Name Value Range Interpretation Code Description Data Sumaya rce(s) Supporting Document(s) BNP 15 PG/ML 0 - 125 [facility] al ID Date Data Source [id number] 06/03/2020 05:00:00 PM EDT [facility] Name Value Range Interpretation Code Description Data Sumaya rce(s) Supporting Document(s) TROPONIN T <0.01 NG/ML 0.00 - 0.10 [facility]ital TROPONIN T0.1 ng/ml Recommended as the c linical threshold value forTroponin T. ID Date Data Source [id number] 06/03/2020 05:00:00 PM EDT [facility] Name Value Range Interpretation Code Description Data Sumaya rce(s) Supporting Document(s) COMPREHENSIVE METABOLIC PANEL [facility] COMPREHENSIVE METABOLIC PANEL Sodium [Moles/volume] in Serum or Plasma 139 mEq/L 134 - 153 [facility] Potassium [Moles/volume] in Serum or Plasma 3.6 mEq/L 3.6 - 5.0 [facility] Chloride [Moles/volume] in Serum or Plasma 104 mEq/L 98 - 107 [facility] Carbon dioxide, total [Moles/volume] in Serum or Plasma 22 MEQ/L 22 - 30 [facility] Glucose [Mass/volume] in Serum or Plasma 127 MG/DL 65 - 110 H [facility] BUN 9 MG/DL 7 - 21 [facility] Creatinine [Mass/volume] in Serum or Plasma 0.7 MG/DL 0.7 - 1.5 [facility] BUN/CREAT 13 8 - 27 [facility] Protein [Mass/volume] in Serum or Plasma 6.5 G/DL 6.3 - 8.2 [facility] Albumin [Mass/volume] in Serum or Plasma 4.3 G/DL 3.9 - 5.0 [facility] Globulin [Mass/volume] in Serum by calculation 2.2 GM/DL 2.4 - 3.2 L [facility] A/G RATIO 2.0 0.8 - 2.0 [facility] Calcium [Mass/volume] in Serum or Plasma 9.2 MG/DL 8.4 - 10.2 [facility] Bilirubin.total [Mass/volume] in Serum or Plasma <0.7 MG/DL 0.2 - 1.3 [facility] Alkaline phosphatase [Enzymatic activity/volume] in Serum or Plasma 81 U/L 38 - 126 [facility] Aspartate aminotransferase [Enzymatic activity/volume] in Serum or Plasma 12 U/L 5 - 40 [facility] Alanine aminotransferase [Enzymatic activity/volume] in Seru m or Plasma 14 U/L 7 - 56 [facility] Anion gap 3 in Serum or Plasma 13.0 mmol/L 8.0 - 16.0 [facility] AGE 40 yrs [facility] al NON-AA GFR >60 mL/min [facility] ital AFR AMER GFR >60 mL/min [facility] Male GFR In terprentation 20-49 yrs >60 mL/min Normal 50-59 yrs >56 mL/min Normal 60-69 yrs >49 mL/min Normal 70-79yrs >42 mL/min Normal 80 and above >35 mL/min Normal Female GFR Interpretation 20-39 yrs >60 mL/min Normal 40-49 yrs >58 mL/min Normal 50-59 yrs >51 mL/min Normal 60-69 yrs >45 mL/min Normal 70-79 yrs >39 mL/min Normal 80 and above >32 mL/min Normal ID Date Data Source [id number] 06/03/2020 04:53:00 PM EDT [facility] Name Value Range Interpretation Code Description Data Sumaya rce(s) Supporting Document(s) CBC W/AUTOMATED DIFF [facility] COMPLETE BLOOD COUNT Leukocytes [#/volume] in Blood by Automated count 9.0 10^3/uL 4.2 - 1 1.0 [facility] Erythrocytes [#/volume] in Blood by Automated count 3.46 10^6/uL 4. 20 - 5.40 L [facility] Hemoglobin [Mass/volume] in Blood 9.1 g/dL 12.0 - 16.0 L [facility] Hematocrit [Volume Fraction] of Blood by Automated count 28.3 % 3 7.0 - 47.0 L [facility] Erythrocyte mean corpuscular volume [Entitic volume] by Auto mated count 81.8 fL 81.0 - 101 [facility] Erythrocyte mean corpuscular hemoglobin [Entitic mass] by Automated count 26.3 pg 27.0 - 34.0 L [facility] Erythrocyte mean corpuscular hemoglobin concentration [Mass/volume] by Automated count 32.2 g/dL 31.0 - 36.0 [facility] Erythrocyte distribution width [Ratio] by Automated count 15.4 % 11.5 - 14.5 H [facility] Platelets [#/volume] in Blood by Automated count 465 10^3/uL 150 - 45 0 H [facility] Platelet mean volume [Entitic volume] in Blood by Automated count 9.0 fL 7.4 - 10.4 [facility] Neutrophils/100 leukocytes in Blood by Automated count 66.4 % 37. 0 - 80.0 [facility] Lymphocytes/100 leukocytes in Blood by Manual count 22.3 % 25.0 - 40.0 L [facility] Monocytes/100 leukocytes in Blood by Automated count 7.9 % 3.0 - 8.0 [facility] Eosinophils/100 leukocytes in Blood by Automated count 2.4 % 0.0 - 7.0 [facility] Basophils/100 leukocytes in Blood by Automated count 0.6 % 0.0 - 2.5 [facility] %IG 0.4 % 0.0 - 0.0 [facility] %NRBC 0.0 % 0.0 - 0.0 [facility] al Neutrophils [#/volume] in Blood by Automated count 5.98 10^3/uL 2.00 - 6.90 [facility] Lymphocytes [#/volume] in Blood by Automated count 2.01 10^3/uL 0.60 - 3.40 [facility] Monocytes [#/volume] in Blood by Automated count 0.71 10^3/uL 0.00 - 0.90 [facility] Eosinophils [#/volume] in Blood by Automated count 0.22 10^3/uL 0.00 - 0.70 [facility] Basophils [#/volume] in Blood by Automated count 0.05 10^3/uL 0.00 - 0.20 [facility] #IG 0.04 10^3/uL 0.00 - 0.10 [facility] #NRBC 0.00 10^3/uL 0.00 - 0.00 [facility] MANUAL DIFF NOT INDICATED [facility] RBC MORPH NOT INDICATED [facility] ID Date Data Source [id number] 06/03/2020 04:45:00 PM EDT [facility] Name Value Range Interpretation Code Description Data Sumaya rce(s) Supporting Document(s) Lactate [Moles/volume] in Serum or Plasma 2.4 MMOL/L 0.2 - 2.2 H [facility] ID Date Data Source [id number] 06/03/2020 06:24:00 PM EDT [facility] Name Value Range Interpretation Code Description Data Sumaya rce(s) Supporting Document(s) OCCULT BLOOD NEGATIVE NORMAL: NEGATIVE [facility] OCCULT BLOOD REENTER NEGATIVE NORMAL: NEGATIVE [facility] { HEMOCCULT LOT # [id number] ){ LOT EXP DATE 07-20-21 ){ PROCEDURAL CONTROL POS/NEG VALID ) ID Date Data Source [id number] 06/02/2020 01:06:00 PM EDT [facility] [address] [place] [address] PHONE: [phone] FAX: [phone] Name .................. : BASILIO Torres Acct Number.................. : [id number] ROOM. ................. : TR-07 Number ................... : [id number] Stay type ............. : E/R Discharge Date......... ... : Admit Date ......... : 05/31/20 Admit Phys .................... : DAREK Date of ....... : 1980 Family Phys ................... : MITA ROCHE Phone .................. : [phone] Age ................................ : 40 Film# .................. .:[id number] Sex ................................. : F Unsigned transcriptions are preliminary reports and do not represent a medical or legal document CHEST PORTABLE 14058 COMPLETE:05/31/20 21:34 RLB 20982 Reason(s): Shortness of Breath PORTABLE CHEST X-RAY: INDICATION: Shortness of breath. FINDINGS: There is a right IJ tunnel catheter with the tip in the SVC. The lungs are clear. The cardiac silhouette is normal in size and contour. No acute osseous abnormality. IMPRESSION: No acute pulmonary process. Electronically Reviewed and Signed By Eleuterio Dukes M.D. , 06/02/20 13:06, RHEA Transcribe Initials: BECK , Transcribe Date: 05/31/20 21:44, Dictation Date: Copy for: DAREK LUCAS via fax Copy for: EMERGENCY DEPT via mode Copy for: 710 MED REC DISCHARGED Page 1 of 1 Name Value Range Interpretation Code Description Data Sumaya rce(s) Supporting Document(s) ID Date Data Source [id number] 06/01/2020 08:14:00 PM EDT [facility] [address] [place] [address] PHONE: [phone] FAX: [phone] Name ..............: BASILIO Jones Number ......................: [id number] ROOM. ............: TR-07 Number ............................: [id number] Stay type.........: E/R Discharge Date...............:05/31/20 Admit Date .....: 05/31/20 Admit Phys .............................: ........................[facility] Date of ..: 1980 Family Phys ...........................: MITA KA Phone..............: [phone] Age............. ....................:40 Film# ...............:[id number] Sex.................................:F Unsigned transcriptions are preliminary reports and [place] [address] COMPLETE:06/01/20 03:28 T 62954 Please See Scanned Results. Name Value Range Interpretation Code Description Data Sumaya rce(s) Supporting Document(s) ID Date Data Source [id number] 05/31/2020 07:27:00 PM EDT [facility] 1 OrderSheet [facility] Emergency Department [address] [place] [address] Phone #: [phone] 05/31/2020 19:25 Patient: NI DIAZ Sex: F : 1980 Age: 40yWEIGHT:68.0 kg (S) HEIGHT:67 inches (S) BMI:23.5ALLERGIES: Levaquin, NSAID, Sulfa AntibioticsCHIEF COMPLAINT: palpitationsDIAGNOSIS: Sinus tachycardiaLAB ORDERSOrder Description Priority Entered Acknowledged InitialedBlood Culture STAT 20:01 05/31/2020 20:07 [id number] X2 ([facility] Tech, Ramakrishna ER20:01 05/31/2020) PA; Npep9Vsmhe Culture STAT 20:01 05/31/2020 21:03 Gtvool11p X2 (Reza Metcalf RN20:11 05/31/2020) PA;CBC w Diff STAT 20:01 05/31/2020 20:07 [facility] Tech, Ramakrishna ER PA; Jptl1VNA STAT 20:01 05/31/2020 20:07 [facility] Tech, Ramakrishna ER PA; Fuph9YT/PTT STAT 20:01 05/31/2020 20:07 [facility] Tech, Ramakrishna IGNACIO PA; Ptwn4Hhorzq Acid STAT 20:01 05/31/2020 20:07 [facility] Tech, Ramakrishna ER PA; Hpjs1Hjzsfpvgyr (Clean STAT 20:01 05/31/2020 20:32 Sindy Metcalf RN PA;Troponin-T STAT 20:01 05/31/2020 20:07 [facility] Tech, Ramakrishna ER PA; Rtmh6S-Vlmyu STAT 20:16 05/31/2020 20:23 Jeff Metcalf RN PA;TSH STAT 22:04 05/31/2020 22:23 Jeff Metcalf RN PA; 2 OrderSheet [facility] Emergency Department [address] [place] [address] Phone #: ext- [phone] 05/31/2020 19:25 Patient: NI DIAZ Sex: F : 1980 Age: 40yDIAGNOSTIC STUDY ORDERSOrder Description Priority Entered Acknowledged InitialedChest Portable 1 STAT 20:01 05/31/2020 20:11 Darshana Metcalf RN(Oxygen?(No)) PA; Reason for Study: Shortness of BreathMEDICATION/IV/DRIP/FLUID ORDERSOrder Description Priority Entered Acknowledged InitialedIV NS : Bolus 500 20:01 05/31/2020 20:14 Neva, then 150 mL/hr Mikey Metcalf RN PA;Zofran ODT PO 8 20:01 05/31/2020 20:14 Christian Metcalf RN PA;Ativan IVP 2 mg 20:16 05/31/2020 20:27 Jeff(HIGH ALERT Mikey Metcalf RNMEDICATION) TROY; Reason for ordering with alerts: Clinical consideration given -- 20:16 05/31/2020 Mikey Plascencia rth PAMorphine IVP 4 mg 20:45 05/31/2020 20:48 Jeff(HIGH ALERT Mikey Metcalf RNMEDICATION) TROY;KCl Liquid PO 40 21:33 05/31/2020 22:01 kathrin Knowles R.N.;Dilaudid IVP 1 mg 21:38 05/31/2020 21:43 Jeff(HIGH ALERT Mikey Metcalf RNMEDICATION) TROY;Metoprolol PO 25 22:04 05/31/2020 22:17 Christian Metcalf RN PA;GENERAL ORDERSOrder Description Priority Entered Acknowledged InitialedBlood Pressure 20:01 05/31/2020 20:07 [place] Mikey Oswald chief resource officerRamakrishna Lee; Wppe9Fiduwbg Monitor 20:01 05/31/2020 20:07 [place](continuous) [facility] TechRamakrishna PA; Akop7MLJ 20:05/31/2020 20:07 [facility] Tech, Ramakrishna ER 3 OrderSheet [facility] Emergency Department [address] [place] [address] Phone #: ext- [phone] 05/31/2020 19:25 [id number] Sex[facility] : 1980 Age: 40y PA; Qwup1Ufgtc oximeter 20:05/31/2020 20:07 [place](Continuous) [facility] Ramakrishna Lee; Kygz7Hygbku Lock 20:05/31/2020 20:11 Jeff Metcalf RN PA;Vitals 20:05/31/2020 20:07 [facility]; Tech1[Electronically signed by Jeff Metcalf RN (22:28 05/31/2020)][Electronically signed by Mikey Oswald (07:34 06/01/2020)][Electronically locked by Jeff Metcalf RN (22:28 05/31/2020)] Name Value Range Interpretation Code Description Data Sumaya rce(s) Supporting Document(s) ID Date Data Source [id number] 05/31/2020 07:27:00 PM EDT [facility] 1 Medication Reconciliation Report [facility] Emergency Department [address] [place] [address] Phone #: ext- [phone] 05/31/2020 19:25 Patient: NI DIAZ Sex: F : 1980 Age: 40yWeight: 68.0 kgHeight/Length: 67 in.BMI: 23.5ALLERGIES: Levaquin, NSAID, Sulfa AntibioticsThe patient's Home Medications are listed below:THE FOLLOWING MEDICATIONS NEED TO BE RECONCILED: Ambien Oral 7.5, daily, via J tube, prn,at bedtime Benadryl IV 50mg QDAY for nausea, 2x a day Carafate Oral 1 gm, q4h, via J tube Creon Oral (9727-9464 unit) 1 capsule, 4x a day, J tube FLUoxetine HCl Oral 20 mg, daily, via J tube Ondansetron HCl Injection 8 mg IVP, q8h, prn oxyCODONE HCl Oral 100/5 ml; 1ML, 4x a day, via J tube, prn Protonix Intravenous (40 mg), 2x a day Tylenol Oral, prnThe source(s) of the original Home Medication information:Not obtained.The following Medications were given to the patient in the Emergency Department:IV NS IV Fluids bolus 0, then 150 mL/hr, administered: 05/31/2020 8:14:00 PMZofran ODT [PO] PO 8 mg, administered: 05/31/2020 8:14:00 PMAtivan [IVP] IVP 2 mg, administered: 05/31/2020 8:27:00 PM 2 Medication Reconciliation Report [facility] Emergency Department [address] [place] [address] Phone #: ext- [phone] 05/31/2020 19:25 Patient: NI DIAZ Sex: F : 1980 Age: 40yMorphine [IVP] IVP 4 mg, administered: 05/31/2020 8:48:00 PMDilaudid [IVP] IVP 1 mg, administered: 05/31/2020 9:43:00 PMKCL LIQUID PO PO 40 meq, administered: 05/31/2020 9:51:00 PMMetoprolol [PO] PO 25 mg, administered: 05/31/2020 10:17:00 PMThe following Medications were prescribed to the patient:None. Name Value Range Interpretation Code Description Data Sumaya rce(s) Supporting Document(s) ID Date Data Source [id number] 05/31/2020 07:27:00 PM EDT [facility] 1 Medication Administration Record [facility] Emergency Department [address] [place] [address] Phone #: ext- [phone] 05/31/2020 19:25 Patient: NI DIAZ Sex: F : 1980 Age: 40yWeight: 68.0 kgHeight/Length: 67 inBMI: 23.5ALLERGIES: NSAID, Levaquin, Sulfa Antibiotics Date/Time Medication Administered Medication OrderedStart IV NS IV NS : Bolus 500 mL, then 44833:14 05/31/2020 Dose: IV Fluids mL/hrPgabriela Metcalf RN Rate: 150 mL/hr over 4 hour(s)---- Dispensed: 1000 mL bagStop Site: #1 right PICC22:23 05/31/2020PeOtero RNGiven ZOFRAN ODT [PO] (ONDANSETRON Zofran ODT PO 8 mg20:14 05/31/2020 HCL)Jeff Metcalf RN Dose: 8 mg Oral Disintegrating Tablets POGiven ATIVAN [IVP] (LORAZEPAM) Ativan IVP 2 mg (HIGH ALERT20:27 05/31/2020 Dose: 2 mg IVP MEDICATION)Jeff Metcalf RN Site: #1 right PICCGiven MORPHINE [IVP] Morphine IVP 4 mg (HIGH ALERT20:48 05/31/2020 Dose: 4 mg IVP MEDICATION)Jeff Metcalf RN Site: #1 right PICCGiven KCL LIQUID PO KCl Liquid PO 40 meq21:51 05/31/2020 Dose: 40 meq Syrup/Liquid Shobha Serrano R.N.Given DILAUDID [IVP] (HYDROMORPHONE Dilaudid IVP 1 mg (HIGH ALERT21:43 05/31/2020 HCL) MEDICATION)Jeff Metcalf RN Dose: 1 mg IVP Site: #1 right PICCGiven METOPROLOL [PO] Metoprolol PO 25 mg22:17 05/31/2020 Dose: 25 mg Tablets Irma Metcalf RN Name Value Range Interpretation Code Description Data Sumaya rce(s) Supporting Document(s) ID Date Data Source [id number] 05/31/2020 07:27:00 PM EDT [facility] 1 General Instructions [facility] Emergency Department [address] [place] [address] Phone #: ext- [phone] 05/31/2020 19:25 Patient: NI DIAZ Sex: F : 1980 Age: 40ySinus tachycardiaINSTRUCTIONSUnderstanding of the discharge instructions verbalized by patient and family.Follow-up with: Matt Sena MD, Cardiology, , [address] [place] [address], [id number] Follow up tomorrow. Call for an appointment. Reason for referral: evaluation and treatment. Summary ofcare provided to patient and family. ADDITIONAL INFORMATIONTachycardia: PAT (PSVT)PAT stands for paroxysmal atrial tachycardia. It is a type of paroxysmal supraventricular tachycardia(PSVT). This means your heart suddenly starts beating very fast. This may feel like your heart isracing or pounding. Because it comes on so suddenly, it is often scary. But this is usually not adangerous condition. PAT can last seconds, minutes, or hours.PAT can occur in otherwise healthy people who have used too much of a stimulant like tobacco orcaffeine. Caffeine is found in coffee, tea, cola and some medicines. Some xfbv-dlq-jiztzuu cold andsinus remedies, diet pills, and some herbal supplements can also overstimulate the heart. The streetdrugs cocaine and amphetamine are the most powerful heart stimulants. You must avoid these.Overactive thyroid and some types of heart valve disorders can also cause PAT. You may have testsdone to find out if this i s the cause if your healthcare provider suspects this.Home careFollow these guidelines when caring for yourself at home: Rest today. Go back to your normal activities as soon as you are feeling back to normal. Sometimes a long episode of PAT can leave you feeling tired and weak for a while. To prevent having PAT come back, avoid all the stimulants listed above. If you have trouble giving up coffee, switch to decaf. If you smoke, try to stop or at least switch to a filtered, low-nicotine type of cigarette while you look for a stop-smoking program. 2 General Instructions [facility] Emergency Department [address] [place] [address] Phone #: ext- [phone] 05/31/2020 19:25 [id number] Sex[facility] F : 1980 Age: 40y If you have another episode of PAT, lie down and try to remain calm. These spells usually stop by themselves within a few minutes.Follow-up careFollow up with your healthcare provider within the week, or as advised.When to seek medical adviceCall your healthcare provider right away if any of these occur: Chest, shoulder, arm, neck, or back pain Shortness of breath Weakness Fainting or lightheadedness Sustained palpitations [id number] [employer]. [address] [place] [address], [place] [address]. All rights reserved. This information is not intended as asubstitute for professional medical care. Always follow your healthcare professional's instructions. You have been given the following additional information: Tachycardia: PAT(Electronically signed by TROY Rosa 06/01/2020 07:34) Name Value Range Interpretation Code Description Data Sumaya rce(s) Supporting Document(s) ID Date Data Source [id number] 05/31/2020 07:27:00 PM EDT [facility] 1 Clinical Report - Nurses [facility] Emergency Department [address] [place] [address] Phone #: ext- [phone] 05/31/2020 19:25 Patient: NI DIAZ Sex: F : 1980 Age: 40yTRIAGEArrived by private vehicle. Historian: patient. Accompanied by family. ( started this am and has gottenprogressively worse).Acuity: LEVEL 3.Chief Complaint: (heart racing).Alert.Onset. (this am). 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 (1300).SEPSIS SCREEN: SIRS Screen negative. Sepsis Screen negative. No suspected or confirmed signs ofinfection present. --19:29 05/31/20 Erika Gillis R.N.19:26 05/31/20. BP: 90/60. MAP: 70. HR: 129. RR: 18. O2 saturati on: 100%. Temp: 99 F (oral). Pain levelnow: 6/10. --19:29 05/31/20 Erika Gillis R.N.Weight: 68 kg stated. Height/Length: 67 inches Per Patient. BMI: 23.5. --19:25 05/31/20 Erika Gillis R.N.MedicationsAmbien Oral 7.5, daily as needed, at bedtime, via J tube. --22:27 05/31/20 Jeff Metcalf RN Benadryl IV 50mg QDAY for nausea, 2x a day. Carafate Oral 1 gm, q4h, via J tube. Creon Oral (Capsule Delayed Release Particles [id number] unit) 1 capsule, 4x a day, J tube. FLUoxetine HCl Oral 20 mg, daily, via J tube. Ondansetron HCl Injection 8 mg IVP, q8h as needed. oxyCODONE HCl Oral 100/5 ml; 1ML, 4x a day as needed, via J tube. Protonix Intravenous (Solution Reconstituted 40 mg), 2x a day. Tylenol Oral, as needed. --05/31/20 Jeff Metcalf RN.AllergiesSulfa Antibiotics.(Anaphylaxis) --05/31/20 Erika Gillis R.N.Levaquin.(hives) --05/31/20 Erika Gillis R.N.NSAID. --05/31/20 Erika Gillis R.N.HistoryPAST MEDICAL HX: Immunizations: up-to-date. The patient has had a hysterectomy.SOCIAL HX: Never smoker. No alcohol use or drug use. She was offered HIV testing but declined andhepatitis C testing but declined. 2 Clinical Report - Nurses [facility] Emergency Department [address] [place] [address] Phone #: ext- [phone] 05/31/2020 19:25 [id number] Sex[facility] F : 1980 Age: 40y Infectious disease exposure: Patient is not a known carrier of tuberculosis, hepatitis, HIV, MRSA or VRE. Patient is not a known carrier of CRE. SELF HARM ASSESSMENT: Self harm assessment was performed. The patient answered "no" to the question(s) "Have you recently felt down, depressed, or hopeless?", "Do you have thoughts of harming or killing yourself?", "Do you have a plan for harming or killing yourself?", "Have you recently had thoughts about harming or killing others?", "Do you have any nessa gerous items in your possession?", "Have you noticed less interest or pleasure in doing things?", "Are you here because you tried to hurt yourself?" and "Have you ever tried to hurt yourself before today?". ABUSE ASSESSMENT: Abuse assessment. Abuse denied. No report of abuse. NUTRITIONAL RISK ASSESSMENT: The nutritional risk assessment revealed no deficiencies. FUNCTIONAL ASSESSMENT: Functional assessment: no impairments noted. LEARNING NEEDS ASSESSMENT: The learning needs assessment revealed no barriers. FALL RISK ASSESSMENT: Fall risk assessment completed. No risk factors identified. SKIN INTEGRITY ASSESSMENT: Skin integrity risk assessment completed. No skin integrity risk identified. --19:29 05/31/20 Erika Gillis R.N. 22:02 05/31/20. SOCIAL HX: The patient has not traveled outside the [place] Infectious disease exposure: No infectious disease exposure. The patient was not exposed to Coronavirus. --:27 05/31/20 Jeff Metcalf RN. Interventions Identification band on patient. To treatment room. --:05/31/20 Erika Gillis R.N.PHYSICAL ASSESSMENTAmbulatory to room.GENERAL / NEURO / PSYCH: Oriented X 4. Appears in pain and in distress.HEENT: Pupils equal, round and reactive to light. No facial asymmetry noted. Mucous membranes arepink.RESPIRATORY: Mild respiratory distress. Chest nontender. Breath sounds within normal limits.CVS: Cardiac rhythm: sinus tachycardia. Capillary refill less than 2 seconds. Pulses within normal limits.GI / : Abdomen soft and nontender and normal bowel sounds.SKIN: Skin intact. Skin is warm and dry. Normal skin turgor. --19:38 05/31/20 Erika Gillis R.N.NURSING PROGRESS NOTESEKG time: (19:28 05/31/2020). EKG was performed by a nurse and shown to the PA. --19:31 05/31/20Erika Gillis R.N. 3 Clinical Report - Nurses [facility] Emergency Department [address] [place] [address] Phone #: ext- [phone] 05/31/2020 19:25 Patient: NI DIAZ [facility]#: [id number] Sex: F : 1980 Age: 40y19:39 05/31/2020 Site #1 started via IV using a PICC line in the right with an 18g angiocath; one attempt.Blood drawn: rainbow set and green tube(s). Sent to the lab. Saline lock flushed with 10 mL saline (rightchest dual port galicia catheter). --19:39 05/31/20 Erika Gillis RCarmeloN.monitor and storage bin tender, NIBP monitor and pulse oximeter placed on patient; quality assurance monitor- Lead II; monitoralarms on. Patient gowned. Head of bed elevated. Reassurance given. Call light placed in reach.Bed placed in lowest position. Brakes of bed on. Patient ready for eval uation- ED physician notified.--19:39 05/31/20 Erika Gillis R.N.20:14 05/31/2020 Started bag #1 1000 mL IV Fluids IV NS; at 150 mL/hr over 4 hour(s) via site #1 via IVpump. Allergies verified and confirmed 5 rights. IV patency established. IV site checked: no pain, redness,or swelling. IV flushed thoroughly pre- and post-medication administration. Information reviewed withpatient including reason for taking this medication. Verbalizes understanding. --20:14 05/31/20 STACIE Javier20:14 05/31/2020 Zofran ODT (Ondansetron HCl) PO Oral Disintegrating Tablets 8 mg given. Allergiesverified and confirmed 5 rights. Information reviewed with patient including reason for taking thismedication. Verbalizes understanding. --20:14 05/31/20 Jeff Metcalf RN20:27 05/31/2020 Ativan (LORazepam) IVP 2 mg given over 3 minute(s) via site #1. Allergies verified andconfirmed 5 rights. IV patency established. IV site checked: no pain, redness, or swelling. IV flushedthoroughly pre- and post-medication administration. IVP given by RN. Information reviewed with patientincluding reason for taking this medication and sedative warning. Verbalizes understanding. --20: Jeff Metcalf RN20:38 05/31/20. BP: 109/79. MAP: 89 . HR: 120. RR: 20. O2 saturation: 100%. Pain level now: 03/30.--20:39 05/31/20 Jeff Metcalf RN20:48 05/31/2020 Morphine IVP 4 mg given over 3 minute(s) via site #1. Allergies verified and confirmed 5rights. IV patency established. IV site checked: no pain, redness, or swelling. IV flushed thoroughly pre-and post- medication administration. IVP given by RN. Information reviewed with patient including reasonfor taking this medication and sedative warning. Verbalizes understanding. --20:48 05/31/20 Jeff Metcalf RN20:51 05/31/20. BP: 99/73. MAP: 81. HR: 114. RR: 18. O2 saturation: 100%. Pain level now: 03/30.--20:52 05/31/20 Jeff Metcalf RN21:43 05/31/2020 Dilaudid (HYDROmorphone HCl) IVP 1 mg given over 3 minute(s) via site #1. Allergiesverified and confirmed 5 rights. IV patency established. IV site checked: no pain, redness, or swelling. IVflushed thoroughly pre- and post-medication administration. IVP given by RN. Information reviewed withpatient including reason for taking this medication and sedative warning. Verbalizes understanding.--21:43 05/31/20 Jeff Metcalf RN 4 Clinical Report - Nurses [facility] Emergency Department [address] [place] [address] Phone #: ext- [phone] 05/31/2020 19:25 Patient: NI DIAZ Sex: F : 1980 Age: 40y 21:51 05/31/2020 KCL LIQUID PO PO Syrup/Liquid 40 meq given. Allergies verified and confirmed 5 rights. Information reviewed with patient including reason for taking this medication. Verbalizes understanding. (administered via pt's j-tube). --22:05/31/20 Shobha Knowles R.N. 22:05/31/2020 Metoprolol PO Tablets 25 mg given. Allergies verified and confirmed 5 rights. Information reviewed with patient including reason for taking this medication. Verbalizes understanding. (via j-tube). --:05/31/20 Jeff Metcalf RN 22:05/31/2020 IV Fluids IV NS via IV site #1 Discontinued: STOPPED upon d ischarge. Total amount infused: 800 mL. IV patency established. IV site checked: no pain, redness, or swelling. IV flushed thoroughly. --:05/31/20 Jeff Metcalf RN 22:05/31/2020 Site #1 removed upon discharge (flushed each port with 300 units of heparin). --:05/31/20 Jeff Metcalf RN.DISPOSITION / DISCHARGE Condition at departure: improved and stable. Discharge instructions provided and reviewed with the patient. Reviewed referral to a high school math teacher. Patient verbalized understanding. Written instructions provided in [place]. The patient was discharged by the physician embalmer assistant. She was discharged home and accompanied by spouse. She left ambulatory and via private vehicle. Spouse driving. --:05/31/20 Jeff Metcalf RN 22:05/31/20. BP: 111/86. MAP: 94. HR: 112. RR: 18. O2 saturation: 100%. Pain level now: 510. --22:05/31/20 Jeff Metcalf RN.Locked/Released at 05/31/2020 22:28 by Jeff Metcalf RN Name Value Range Interpretation Code Description Data Sumaya rce(s) Supporting Document(s) ID Date Data Source [id number] 05/31/2020 07:27:00 PM EDT [facility] 1 Clinical Report - Physicians/Mid Levels [facility] Emergency Department [address] [place] [address] Phone #: ext- [phone] 05/31/2020 19:25 Patient: NI DIAZ Sex: F : 1980 Age: 40y Time Seen: 20:00 05/31/2020. Arrived- By private vehicle. Historian- patient. RETURN VISIT: recently seen in this ED by me within past 30 days. Seen now for a new unrelated complaint.HISTORY OF PRESENT ILLNESS Chief Complaint: PALPITATIONS. It is described as a fast and pounding heart beat. She complains of dizziness. This started today this morning; 40 year old female here for palpitations that started this morning and is worsening. Pt sts this has occurred in the past when she her "counts" are down. Pt sts that she feels dizzy specifically with movement. Pt also admits to back pain that has not gotten better since last visit. and is still present and worsening. Onset during exertion. It was abrupt in onset. No chest pain or discomfort, sweating episodes, fainting episodes or tingling. No muscle spasms. She has had difficulty breathing and dizziness. Similar symptoms previously. Patient has had similar symptoms frequently (pt sts this occurs when her "counts are down"). Recent medical care: The patient was seen recently at this facility (for back pain).REVIEW OF SYSTEMSNo fever, chills, cough, orthopnea or calf pain. No enlarged lymph nodes, headache, sore throat, blurredvision or nausea. No abdominal pain, black stools, difficulty with urination, skin rash or depression. Notrouble sleeping, vomiting or diarrhea. The patient has had bloody stools (pt sts this is her usual). Shehas not had a poor appetite.PAST HISTORY See nurses notes. Problems: G-Tube Replacement. Fever. Constipation. Gastric ulcer. Abdominal Pain. Anemia. Cellulitis. GI Bleeding. Pulmonary Embolism. UTI - Urinary Tract Infection. Status Epilepticus. Sepsis (disorder). Hypoxia. 2 Clinical Report - Physicians/[facility] Emergency Department [address] [place] [address] Phone #: ext- [phone] 05/31/2020 19:25 [id number] Sex[facility] F : 1980 Age: 40y Hypokalemia. GI Disease. Lung Disease. Additional Surgeries: Abd for obstruction. Bariatric Surgery. Bowel resection. Bowel Resection [2016]. Cholecystectomy. Feeding Tube Placement. Gastric bypass. Gastric bypass reversal [08/2019]. Gastric Resection [2008]. GI bleed clipping. G-Tube Placement. Hysterectomy. J-tube placement. J-Tube placement. Life port removed. Lifeport [10/2017]. Portacath left chest. Nadege-en-Y gastrojejunostomy [2009]. Spi nal fusion. Spinal fusion. Allergies: Levaquin.(hives) NSAID. Sulfa Antibiotics.(Anaphylaxis).SOCIAL HISTORYNever smoker. No alcohol use or drug use.ADDITIONAL NOTESThe nursing notes have been reviewed.PHYSICAL EXAMVital Signs: 05/31/2020 19:26 BP: 90/60. MAP: 70. HR: 129. RR: 18. O2 saturation: 100%. Temp: 99 F.Pain level now: 03/30. Have been reviewed. Tachycardic. Oxygen saturation normal.Appearance: Alert. Oriented X3. No acute distress.Eyes: Pupils equal, round and reactive to light. Eyes normal inspection.ENT: Ears normal. Nose normal. Pharynx normal.Neck: Normal inspection. Neck supple.CVS: Tach ycardia. Normal heart rhythm. Heart sounds normal. Pulses normal. 3 Clinical Report - Physicians/Mid Levels [facility] Emergency Department [address] [place] [address] Phone #: ext- [phone] 05/31/2020 19:25 Patient: NI DIAZ Sex: F : 1980 Age: 40y Respiratory: No respiratory distress. Painless inspiration. Breath sounds normal. Chest nontender. Abdomen: Soft and nontender. Bowel sounds normal. Back: Normal external inspection. Skin: Skin warm and dry. Extremities: Extremities exhibit normal ROM. No lower extremity edema. Neuro: Oriented X 3. No motor deficit. No sensory deficit.LABS, X-RAYS, AND EKGChest X-ray: No acute disease. Views: AP (portable). The X-rays were interpreted by the radiologistand contemporaneously by me. Interpretation time: 22:08 05/31/2020.Laboratory Tests: Laboratory tests have been ordered, with results reviewed and considered in themedical decision making process. D-Dimer: (LUISANA: 05/31/2020 20:00) ( [facility] 05/31/2020 20:43) Final results Test Result Flag Units (Reference) D-DIMER QUANT 0.27 ug/mL (0.27 - 0.50) CBC w Diff: (LUISANA: 05/31/2020 19:48) ( [facility] 05/31/2020 20:11) Final results Test Result Flag Units (Reference) CBC W/A UTOMATED DIFF COMPLETE BLOOD COUNT WBC 7.3 10/uL (4.2 - 11.0) RBC 3.87 L 10/uL (4.20 - 5.40) HEMOGLOBIN 10.1 L g/dL (12.0 - 16.0) HEMATOCRIT 31.9 L % (37.0 - 47.0) MCV 82.4 fL (81.0 - 101) MCH 26.1 L pg (27.0 - 34.0) MCHC 31.7 g/dL (31.0 - 36.0) RDW 15.5 H % (11.5 - 14.5) PLATELETS 473 H 10/uL (150 - 450) MPV 9.3 fL (7.4 - 10.4) NEUT 57.9 % (37.0 - 80.0) LYMPH 29.7 % (25.0 - 40.0) MONO 8.7 H % (3.0 - 8.0) EOS 2.6 % (0.0 - 7.0) BASO 0.7 % (0.0 - 2.5) %IG 0.4 H % (0.0 - 0.0) %NRBC 0.0 % (0.0 - 0.0) #NEUT 4.20 10/uL (2.00 - 6.90) #LYMPH 2.15 10/uL (0.60 - 3.40) #MONO 0.63 10/uL (0.00 - 0.90) #EOS 0.19 10/uL (0.00 - 0.70) #BASO 0.05 10/uL (0.00 - 0.20) #IG 0.03 10/uL (0.00 - 0.10) #NRBC 0.00 10/uL (0.00 - 0.00) MANUAL DIFF NOT INDICATED RBC MORPH NOT INDICATED CMP: (LUISANA: 05/31/2020 19:48) ( MsgRcvd 05/31/2020 21:18) Final results Test Result Flag Units (Reference) COMPREHENSIVE METABOLIC PANEL COMPREHENSIVE METABOLIC PANEL SODIUM 141 mEq/L (134 - 153) 4 Clinical Report - Physicians/Mid Levels [facility] Emergency Department [address] [place] [address] Phone #: ext- [phone] 05/31/2020 19:25 [id number] Sex[facility] F : 1980 Age: 40y POTASSIUM 3.4 L mEq/L (3.6 - 5.0) CHLORIDE 105 mEq/L (98 - 107) CO2 23 MEQ/L (22 - 30) GLUCOSE 100 MG/DL (65 - 110) BUN 8 MG/DL (7 - 21) CREATININE 0.7 MG/DL (0.7 - 1.5) BUN/CREAT 11 (8 - 27) TOTAL PROTEIN 6.6 G/DL (6.3 - 8.2) ALBUMIN 4.5 G/DL (3.9 - 5.0) GLOBULIN 2.1 L GM/DL (2.4 - 3.2) A/G RATIO 2.1 H (0.8 - 2.0) CALCIUM 9.4 MG/DL (8.4 - 10.2) TOTAL BILI <0.7 MG/DL (0.2 - 1.3) ALKALINE PHOS 89 U/L (38 - 126) SGOT/AST 16 U/L (5 - 40) SGPT/ALT 13 U/L (7 - 56) ANION GAP 13.0 mmol/L (8.0 - 16.0) AGE 40 yrs NON-AA GFR >60 mL/min AFR AMER GFR >60 mL/min Male GFR Interprentation 20-49 yrs >60 mL/min Yagfgk46-22 yrs >56 mL/min Normal 60-69 yrs >49 mL/min Normal 70-79yrs>42 mL/min Normal 80 and above >35 mL/min Normal Female GFRInterpretation 20-39 yrs >60 mL/min Normal 40-49 yrs >58 mL/minNormal 50-59 yrs >51 mL/min Normal 60-69 yrs >45 mL/min Acgnxh53-53 yrs >39 mL/min Normal 80 and above >32 mL/min NormalPT/PTT: (LUISANA: 05/31/2020 19:48) ( MsgRcvd 05/31/2020 20:43) Final results Test Result Flag Units (Reference) PROTIME 13.7 SECONDS (11.0 - 15.5) INR 1.04 (0.93 - 1.23) PTT 46.8 H SECONDS (24.8 - 36.7) \\BLDo\\INR INTERPRETATION\\BLDx\\ Therapeutic range for Coumadin andrelated oral anticoagulants. -International Normalized Ratio (INR): 2.0 - 3.0 for VenousThrombosis, Pulmonary Embolus, Tissue heart valves, Acute RI Atrial Fibrillation, Valvular heart diseaseand recurrent Systemic Embolism. -International Normalized Ratio (INR): 2.5 - 3.5 forMechanical Prosthetic valve.Lactic Acid: (LUISANA: 05/31/2020 19:48) ( MsgRcvd 05/31/2020 20:16) Final results Test Result Flag Units (Reference) LACTIC ACID 2.5 H MMOL/L (0.2 - 2.2)Urinalysis: (LUISANA: 05/31/2020 20:00) ( [facility] 05/31/2020 21:30) Final results Test Result Flag Units (Reference) URINALYSIS URINALYSIS SOURCE R COLOR yellow (NORMAL: Yello CLARITY hazy (NORMAL: Clear SPEC GRAVITY 1.015 (1.001 - 1.030 pH 7 (5 - 9) GLUCOSE NORM (NORMAL: Negat BILIRUBIN NEG (NORMAL: Negat KETONE NEG (NORMAL: Negat PROTEIN 30 (NORMAL: Negat NITRITE NEG (NORMAL: Negat 5 Clinical Report - Physicians/Mid Levels [facility] Emergency Department [address] [place] [address] Phone #: ext- [phone] 05/31/2020 19:25 Patient: NI DIAZ Sex: F : 1980 Age: 40y BLOOD NEG (NORMAL: Negat LEUK EST 25 (NORMAL: Negat UROBILINOGEN NOR (less than 1.0 MICROSCOPIC See Below WBC 1 - 3 (NORMAL: NONE RBC 1 - 3 (NORMAL: NONE EPITHELIAL MANY A (NORMAL: NONE BACTERIA 1+ SMALL (NORMAL: NONETroponin-T: (LUISANA: 05/31/2020 19:48) ( [facility] 05/31/2020 21:18) Final results Test Result Flag Units (Reference) TROPONIN T <0.01 NG/ML (0.00 - 0.10) TROPONIN T0.1 ng/ml Recommended as the clinical threshold value forTroponin T.Chest Portable 1 View: (LUISANA: 05/31/2020 20:01) ( [facility] 05/31/2020 21:45) In ProgressCHEST PORTABLEReason(s): Shortness of BreathTRANSPORTATION: WC IV? O2? Oxygen?(No) Room: ED Exam CHEST PORTABLE [address] [place] [address] PHONE: [phone] FAX: [phone] Name .................. : BASILIO Torres Acct Number.................. : [id number] ROOM. ................. : [facility] MR Number ................... : [id number] Stay type ............. : E/R Discharge Date......... ... : Admit Date ......... : 05/31/20 Admit Phys .................... : DAREK Date of ....... : 1980 Family Phys ................... : MITA KA Phone .................. : [phone] Age ................................ : 40 Film# .................. .:[id number] Sex ................................. : F Unsigned transcriptions are preliminary reports and do not represent a medical or legal document CHEST PORTABLE [id number] COMPLETE:05/31/20 21:34 RLB [id number] Reason(s): Shortness of Breath PORTABLE CHEST X-RAY: INDICATION: Shortness of breath. FINDINGS: There is a right IJ tunnel catheter with the tip in the SVC. The lungs are clear. The cardiac silhouette is normal in size and contour. No acute osseous abnormality. IMPRESSION: No acute pulmonary process. Electronically Reviewed and Signed By TRISTA SABILLON NHY Transcribe Initials: BECK , Transcribe Date: 05/31/20 21:44, Dictation Date: 6 Clinical Report - Physicians/Mid Levels [facility] Emergency Department [address] [place] [address] Phone #: ext- [phone] 05/31/2020 19:25 Patient: NI DIAZ Sex: F : 1980 Age: 40y <<REPDIST>> Page 1 of 1.PROGRESS AND PROCEDURESCourse of Care: 22:May 31 2020. Evaluation after cardiac monitoring and results of tests back.Lavaged. (Discussed risks, benefits, options and pt is agreeable with dx and tx plan. D/W Faye Berg SHAREPOINT ENGINEER willstart on Metoporol 25mhg and have her call Jaida's office n the AM. Pending TSH results.). Patient counseled in person regarding the patient's stable condition and diagnosis. 22:May 31 2020. Disposition: Discharged home in good and improved condition (22:May 31 2020).CLINICAL IMPRESSION Sinus tachycardiaINSTRUCTIONS Understanding of the discharge instructions verbalized by patient and family. Follow-up with: Matt Sena MD, Cardiology, , [address] [place] [address], [id number] Follow up tomorrow. Call for an appointment. Reason for referral: evaluation and treatment. Summary of care provided to patient and family.(Electronically signed by TROY Rosa 06/01/2020 07:34) Name Value Range Interpretation Code Description Data Sumaya rce(s) Supporting Document(s) ID Date Data Source [id number] 06/06/2020 07:24:00 AM EDT [facility] [id number] Name Value Range Interpretation Code Description Data Sumaya rce(s) Supporting Document(s) Bacteria identified in Blood by Culture [facility] NO GROWTH AFTER 5 DAYS ID Date Data Source [id number] 06/05/2020 07:29:00 AM EDT [facility] [id number] Name Value Range Interpretation Code Description Data Sumaya rce(s) Supporting Document(s) TRIMETHOPRIM/SULFAMETHOXAZOLE <0.5/9.5 Recio sceptible. Indicates for microbiology susceptibilities only. [facility] Amoxicillin+Clavulanate [Susceptibility] by Minimum inhibitory concentration (ZHNAE) <4/2 Susceptible. Indicates for microbiology s usceptibilities only. [facility] Ampicillin [Susceptibility] by Minimum inhibitory concentration (ZHANE) 4 Resistant. Indicates for microbiology susceptibilities only. [facility] Ampicillin+Sulbactam [Susceptibility] by Minimum inhib itory concentration (ZHANE) <8/4 Susceptible. Indicates for microbiology suscepti bilities only. [facility] Cefazolin [Susceptibility] by Minimum inhibitory concentration ( ZHANE) <4 Susceptible. Indicates for microbiology susceptibilities only. [facility] Ciprofloxacin [Susceptibility] by Minimum inhibitory concentrati on (ZHANE) <1 Susceptible. Indicates for microbiology susceptibilities only. [facility] Clindamycin [Susceptibility] by Minimum inhibitory concentration (ZHANE) <0.5 Susceptible. Indicates for microbiology susceptibilities only. [facility] Erythromycin [Susceptibility] by Minimum inhibitory concentratio n (ZHANE) <0.5 Susceptible. Indicates for microbiology susceptibilities only. [facility] Gentamicin [Susceptibility] by Minimum inhibitory concentration (ZHANE) <4 Susceptible. Indicates for microbiology susceptibilities only. [facility] Oxacillin [Susceptibility] by Minimum inhibitory concentration ( ZHANE) <0.25 Susceptible. Indicates for microbiology susceptibilities only. [facility] Penicillin [Susceptibility] by Minimum inhibitory concentration (ZHANE) >8 Resistant. Indicates for microbiology susceptibilities only. [facility] Tetracycline [Susceptibility] by Minimum inhibitory concentratio n (ZHANE) <4 Susceptible. Indicates for microbiology susceptibilities only. [facility] Vancomycin [Susceptibility] by Minimum inhibitory concentration (ZHANE) 2 Susceptible. Indicates for microbiology susceptibilities only. [facility] Levofloxacin [Susceptibility] by Minimum inhibitory concentratio n (ZHANE) <1 Susceptible. Indicates for microbiology susceptibilities only. [facility] Moxifloxacin [Susceptibility] by Minimum inhibitory concentratio n (ZHANE) <0.5 Susceptible. Indicates for microbiology susceptibilities only. [facility] ID Date Data Source [id number] 06/06/2020 11:24:00 AM EDT [facility] Name Value Range Interpretation Code Description Data Sumaya rce(s) Supporting Document(s) CULTURE BLOOD [facility] spital _CULTURE BLOOD_ [place] [address] CLIA# [id number] SEE SCANNED REPORT{ PRELIM ID Date Data Source [id number] 06/02/2020 11:01:00 AM EDT [facility] 06/02/20 1058 CALLED TO NEMO Thomas BY JOSE ANTONIO OVIEDO, RESULTS READBACKThe FilmArray BCID Panel is a qualitative multiplexednucleic acid-based test - PCRNormal results for each test is "Not detected"The BCID panel detects KPC,mecA,Cirilo/Bresistance,enterococcus,L.monocytogenes,Staphlococcus,S.aureus,St reptococcus,GRP B, GRP A, S.pneumoniae,A.baumanii,Enterobacteriaceae,E.cloacae complex,E.coli,K.oxyto ca,K.pneumoniae,Proteus,S.marcescens,H.influenzae,N.meningitidis,P.aeruginosa,C. albicans,C.glabrata ,C.krusei,C.parapsilosis,C.tropicalisTraditional Culture ID and Sensitivities will still beperformed on all positive blood cultures.The FilmArray BCID panel may not distinguish mixed cultureswhen two or more species of the same genus or organism groupare present in a specimen.This test is a qualitative test and does not provide aquantitative value for the organism(s)in the sample.Antimicrobial resistance can occur via multiple mechanisms.A Not detected result for the FilmArray antimicrobialresistance gene assays does not indicate antimicrobialsusceptibility. Subculturing and standard susceptibilitytesting of isolates is requried to determine antimicrobialsusceptibility.Results from this test must be correlated with the clinicalhistory, epidemiological data,and otherdata available to theclinician evaluating the patient.Staphylococcus species Name Value Range Interpretation Code Description Data Sumaya rce(s) Supporting Document(s) ID Date Data Source [id number] 06/02/2020 11:32:00 AM EDT [facility] Name Value Range Interpretation Code Description Data Sumaya rce(s) Supporting Document(s) CULTURE BLOOD [facility] sp[facility] _CULTURE BLOOD_ TEST PERFORM ED AT [place] [id number] [place] [address] CLIA# [id number] SEE SCANNED REPORT{ PRELIM GROWTH OF STPAH SPECIESCALLED TO BRITTANY 06/02/20 ID Date Data Source [id number] 05/31/2020 08:43:00 PM EDT [facility] Value Range Interpretation Code Description Data Sumaya rce(s) Supporting Document(s) Fibrin D-dimer FEU [Mass/volume] in Platelet poor plasma 0.27 ug /mL 0.27 - 0.50 [facility] ID Date Data Source [id number] 05/31/2020 11:20:00 PM EDT [facility] Value Range Interpretation Code Description Data Sumaya rce(s) Supporting Document(s) Thyrotropin [Units/volume] in Serum or Plasma by Detec tion limit <= 0.05 mIU/L 2.83 uIU/mL 0.47 - 5.01 [facility] ID Date Data Source [id number] 05/31/2020 09:30:00 PM EDT [facility] Value Range Interpretation Code Description Data Sumaya rce(s) Supporting Document(s) URINALYSIS [facility] gregg URINALYSIS SOURCE R [facility] al COLOR yellow NORMAL: Yellow [facility] CLARITY hazy NORMAL: Clear [facility] Specific gravity of Urine by Test strip 1.015 1.001 - 1.030 [facility] pH 7 5 - 9 [facility] Glucose [Mass/volume] in Urine by Test strip NORM NORMAL: Negat [facility] Bilirubin.total [Presence] in Urine by Test strip NEG NORMAL: Negative [facility] Ketones [Presence] in Urine by Test strip NEG NORMAL: Negative [facility] Protein [Mass/volume] in Urine by Test strip 30 NORMAL: Negat [facility] Nitrite [Presence] in Urine by Test strip NEG NORMAL: Negative [facility] BLOOD NEG NORMAL: Negative [facility] Leukocyte esterase [Presence] in Urine by Test strip 25 DELANO L: Negative [facility] Urobilinogen [Mass/volume] in Urine by Test strip NOR less tenisha n 1.0 mg/dL [facility] MICROSCOPIC See Below [facility] ital WBC 1 - 3 NORMAL: NONE SEEN [facility] Erythrocytes [#/volume] in Urine by Test strip 1 - 3 NORMAL: NON E SEEN [facility] EPITHELIAL MANY NORMAL: NONE SEEN A [facility] Bacteria [Presence] in Urine sediment by Light microscopy 1+ SMALL NORMAL: NONE SEEN [facility] ID Date Data Source [id number] 05/31/2020 09:18:00 PM EDT [facility] Name Value Range Interpretation Code Description Data Sumaya rce(s) Supporting Document(s) TROPONIN T <0.01 NG/ML 0.00 - 0.10 [facility] ospital TROPONIN T0.1 ng/ml Recommended as the c linical threshold value forTroponin T. ID Date Data Source [id number] 05/31/2020 09:17:00 PM EDT [facility] Name Value Range Interpretation Code Description Data Sumaya rce(s) Supporting Document(s) COMPREHENSIVE METABOLIC PANEL [facility] COMPREHENSIVE METABOLIC PANEL Sodium [Moles/volume] in Serum or Plasma 141 mEq/L 134 - 153 [facility] Potassium [Moles/volume] in Serum or Plasma 3.4 mEq/L 3.6 - 5.0 L [facility] Chloride [Moles/volume] in Serum or Plasma 105 mEq/L 98 - 107 [facility] Carbon dioxide, total [Moles/volume] in Serum or Plasma 23 MEQ/L 22 - 30 [facility] Glucose [Mass/volume] in Serum or Plasma 100 MG/DL 65 - 110 [facility] BUN 8 MG/DL 7 - 21 [facility] Creatinine [Mass/volume] in Serum or Plasma 0.7 MG/DL 0.7 - 1.5 [facility] BUN/CREAT 11 8 - 27 [facility] al Protein [Mass/volume] in Serum or Plasma 6.6 G/DL 6.3 - 8.2 [facility] Albumin [Mass/volume] in Serum or Plasma 4.5 G/DL 3.9 - 5.0 [facility] Globulin [Mass/volume] in Serum by calculation 2.1 GM/DL 2.4 - 3.2 L [facility] A/G RATIO 2.1 0.8 - 2.0 H [facility] al Calcium [Mass/volume] in Serum or Plasma 9.4 MG/DL 8.4 - 10.2 [facility] Bilirubin.total [Mass/volume] in Serum or Plasma <0.7 MG/DL 0.2 - 1.3 [facility] Alkaline phosphatase [Enzymatic activity/volume] in Serum or Plasma 89 U/L 38 - 126 [facility] Aspartate aminotransferase [Enzymatic activity/volume] in Serum or Plasma 16 U/L 5 - 40 [facility] Alanine aminotransferase [Enzymatic activity/volume] in Seru m or Plasma 13 U/L 7 - 56 [facility] Anion gap 3 in Serum or Plasma 13.0 mmol/L 8.0 - 16.0 [facility] AGE 40 yrs [facility] al NON-AA GFR >60 mL/min [facility] ital AFR AMER GFR >60 mL/min [facility] spital Male GFR In terprentation 20-49 yrs >60 mL/min Normal 50-59 yrs >56 mL/min Normal 60-69 yrs >49 mL/min Normal 70-79yrs >42 mL/min Normal 80 and above >35 mL/min Normal Female GFR Interpretation 20-39 yrs >60 mL/min Normal 40-49 yrs >58 mL/min Normal 50-59 yrs >51 mL/min Normal 60-69 yrs >45 mL/min Normal 70-79 yrs >39 mL/min Normal 80 and above >32 mL/min Normal ID Date Data Source [id number] 05/31/2020 08:43:00 PM EDT [facility] Name Value Range Interpretation Code Description Data Sumaya rce(s) Supporting Document(s) Prothrombin time (PT) 13.7 SECONDS 11.0 - 15.5 [facility] INR in Platelet poor plasma by Coagulation assay 1.04 0.93 - 1. 23 [facility] aPTT in Blood by Coagulation assay 46.8 SECONDS 24.8 - 36.7 H [facility] \\BLDo\\INR INTERPRETATION\\BLDx\\ Therapeutic range for Coumadin and related oral anticoagulants. - International Normalized Ratio (INR): 2.0 - 3.0 for Venous Thrombosis, Pulmonary Embolus, Tissue heart valves, Acute RI Atrial Fibrillation, Valvular heart disease and recurrent Systemic Embolism. - International Normalized Ratio (INR): 2.5 - 3.5 for Mechanical Prosthetic valve. ID Date Data Source [id number] 05/31/2020 08:16:00 PM EDT [facility] Name Value Range Interpretation Code Description Data Sumaya rce(s) Supporting Document(s) Lactate [Moles/volume] in Serum or Plasma 2.5 MMOL/L 0.2 - 2.2 H [facility] ID Date Data Source [id number] 05/31/2020 08:11:00 PM EDT [facility] Name Value Range Interpretation Code Description Data Sumaya rce(s) Supporting Document(s) CBC W/AUTOMATED DIFF [facility] COMPLETE BLOOD COUNT Leukocytes [#/volume] in Blood by Automated count 7.3 10^3/uL 4.2 - 1 1.0 [facility] Erythrocytes [#/volume] in Blood by Automated count 3.87 10^6/uL 4. 20 - 5.40 L [facility] Hemoglobin [Mass/volume] in Blood 10.1 g/dL 12.0 - 16.0 L [facility] Hematocrit [Volume Fraction] of Blood by Automated count 31.9 % 3 7.0 - 47.0 L [facility] Erythrocyte mean corpuscular volume [Entitic volume] by Auto mated count 82.4 fL 81.0 - 101 [facility] Erythrocyte mean corpuscular hemoglobin [Entitic mass] by Automated count 26.1 pg 27.0 - 34.0 L [facility] Erythrocyte mean corpuscular hemoglobin concentration [Mass/volume] by Automated count 31.7 g/dL 31.0 - 36.0 [facility] Erythrocyte distribution width [Ratio] by Automated count 15.5 % 11.5 - 14.5 H [facility] Platelets [#/volume] in Blood by Automated count 473 10^3/uL 150 - 45 0 H [facility] Platelet mean volume [Entitic volume] in Blood by Automated count 9.3 fL 7.4 - 10.4 [facility] Neutrophils/100 leukocytes in Blood by Automated count 57.9 % 37. 0 - 80.0 [facility] Lymphocytes/100 leukocytes in Blood by Manual count 29.7 % 25.0 - 40.0 [facility] Monocytes/100 leukocytes in Blood by Automated count 8.7 % 3.0 - 8.0 H [facility] Eosinophils/100 leukocytes in Blood by Automated count 2.6 % 0.0 - 7.0 [facility] Basophils/100 leukocytes in Blood by Automated count 0.7 % 0.0 - 2.5 [facility] %IG 0.4 % 0.0 - 0.0 H [facility] al %NRBC 0.0 % 0.0 - 0.0 [facility] al Neutrophils [#/volume] in Blood by Automated count 4.20 10^3/uL 2.00 - 6.90 [facility] Lymphocytes [#/volume] in Blood by Automated count 2.15 10^3/uL 0.60 - 3.40 [facility] Monocytes [#/volume] in Blood by Automated count 0.63 10^3/uL 0.00 - 0.90 [facility] Eosinophils [#/volume] in Blood by Automated count 0.19 10^3/uL 0.00 - 0.70 [facility] Basophils [#/volume] in Blood by Automated count 0.05 10^3/uL 0.00 - 0.20 [facility] #IG 0.03 10^3/uL 0.00 - 0.10 [facility] ospital #NRBC 0.00 10^3/uL 0.00 - 0.00 [facility] ospital MANUAL DIFF NOT INDICATED [facility] RBC MORPH NOT INDICATED [facility] spital ID Date Data Source [id number] 05/23/2020 08:56:00 AM EDT [facility] [address] [place] [address] PHONE: [phone] FAX: [phone] Name .................. : BASILIO Torres [facility] Number.................. : [id number] ROOM. ................. : [id number] MR Number ................... : [id number] Stay type ............. : E/R Discharge Date......... ... : 05/22/20 Admit Date ......... : 05/22/20 Admit Phys .................... : DESIREE CESPEDES Date of ....... : 1980 Family Phys ................... : [employer] Phone .................. : [phone] Age ................................ : 40 Film# .................. .:[id number] Sex ................................. : F Unsigned transcriptions are preliminary reports and do not represent a medical or legal document CT ABD & PELV W/[place] OR[place] W/[place] [id number] COMPLETE:05/22/20 19:41 [facility] [id number] Reason(s): Abdominal Pain CT OF THE ABDOMEN AND PELVIS WITHOUT CONTRAST: INDICATION: Abdominal pain. COMPARISON: 12/05/18 TECHNIQUE: Noncontrast CT examination of the abdomen and pelvis is acquired. Coronal and sagittal images are reformatted. FINDINGS: The lower lungs are clear of infiltrate. Nonenhanced images of the liver are unremarkable. The gallbladder has been removed. Dilated common bile duct. The pancreas is within normal limits. The spleen is homogeneous. The spleen measures 13.5 cm. Bilateral adrenal glands are unremarkable. No renal stones. No hydronephrosis. The ureters are unremarkable. There is a percutaneous feeding tube in place. No bowel obstruction. Stool in the colon. The urinary bladder is unremarkable. The uterus is not identified. No free air or free fluid. Lumbar hardware. Degenerative changes lumbar spine. Small subcutaneous injection sites identified involving the abdomen wall with inflammation and small air pockets. IMPRESSION: Page 1 of 2 [facility] [address] [place] [address] PHONE: [phone] FAX: [phone] Name .................. : BASILIO Torres Acct Number.................. : [id number] ROOM. ................. : TR-05 Number ................... : [id number] Stay type ............. : E/R Discharge Date......... ... : 05/22/20 Admit Date ......... : 05/22/20 [facility] .................... [facility] Date of ....... : 1980 Family Phys ................... : [employer] Phone .................. : [phone] Age ................................ : 40 Film# .................. .:[id number] Sex ................................. : F Unsigned transcriptions are preliminary reports and do not represent a medical or legal document CT ABD & PELV W/[place] ORAL W/[place] [id number] COMPLETE:05/22/20 19:41 [facility] [place] [id number] Reason(s): Abdominal Pain Moderate amount of stool. Mild constipation. Mild splenomegaly. No free air or free fluid. While performing the above CT examination, radiation dose reduction was accomplished utilizing automated exposure control, adjusting of the mA and kV based on the patient's body size and/or the use of imperative reconstructive techniques. CT dose: 922.0 mGycm Electronically Reviewed and Signed By Laek Gupta MD , 05/23/20 08:56, FROILAN Transcribe Initials: DZ , Transcribe Date: 05/22/20 20:23, Dictation Date: Copy for: DAREK LUCAS via fax Copy for: EMERGENCY DEPT via modem Copy for: 710 MED REC DISCHARGED Page 2 of 2 Name Value Range Interpretation Code Description Data Sumaya rce(s) Supporting Document(s) ID Date Data Source [id number] 05/22/2020 04:24:00 PM EDT [facility] 1 OrderSheet [facility] Emergency Department [address] [place] [address] Phone #: ext- [phone] 05/22/2020 16:19 Patient: NI DIAZ Sex: F : 1980 Age: 40yWEIGHT:68.0 kg (S) HEIGHT:67 inches (S) BMI:23.5ALLERGIES: Levaquin, Sulfa Antibiotics, traZODone HClCHIEF COMPLAINT: abdominal pain, flank pain, vomiting, nauseaDIAGNOSIS: Abdominal pain, ConstipationLAB ORDERSOrder Description Priority Entered Acknowledged InitialedUrinalysis (Clean STAT 16:32 05/22/2020 16:32 Robert Navarrete Jennifer Jennifer R.NCarmelo RCarmeloNCarmelo; Verbal order per; Mikey Oswald PACBC w Diff STAT 16:39 05/22/2020 16:51 Jeff Metcalf RN PA; Reason for ordering with alerts: Clinical consideration given -- 16:39 05/22/2020 Mikey Oswald PACMP STAT 16:39 05/22/2020 16:51 Jeff Mtecalf RN PA; Reason for ordering with alerts: Clinical consideration given -- 16:39 05/22/2020 Mikey Oswald PALipase STAT 16:39 05/22/2020 16:51 Jeff Metcalf RN PA; Reason for ordering with alerts: Clinical consideration given -- 16:39 05/22/2020 Mikey Oswald PABlood Culture STAT 16:39 05/22/2020 17:27 [id number] X2 (Sched [facility] chief resource officer, [place] ER16:39 05/22/2020) PA; Tech1 Reason for ordering with alerts: Clinical consideration given -- 16:39 05/22/2020 Mikey Oswald PABlood Culture STAT 16:39 05/22/2020 17:27 [id number] X2 (Sched [facility] chief resource officer, [place] ER16:49 05/22/2020) PA; Tech1 Reason for ordering with alerts: Clinical consideration given -- 16:39 05/22/2020 Mikey Oswald PALactic Acid STAT 16:39 05/22/2020 16:51 Jeff Flores OrderSheet [facility] Emergency Department [address] [place] [address] Phone #: [phone]- [phone] 05/22/2020 16:19 Patient: NI DIAZ Sex: F : 1980 Age: 40y Mikey Metcalf RN PA; Reason for ordering with alerts: Clinical consideration given -- 16:39 05/22/2020 Mikey Oswald PADIAGNOSTIC STUDY ORDERSOrder Description Priority Entered Acknowledged InitialedCT Abd PEL W/ IV STAT 17:11 05/22/2020 Ack'd: 17:27 [place] chief resource officer, JesseContrast Only Mikey Oswald ER Tech1(Oxygen?(No)) PA; Cancelled: Patient Refusal 18:02 Mikey(IV?(Yes)) Darek SIMMONS Reason for Study: Abdominal PainCT ABD PEL W/O STAT 18:03 05/22/2020 18:03 PeterOral W/O IV Mikey Metcalf RNContrast PA;(Oxygen?(No))(IV?(No)) Reason for Study: Abdominal PainMEDICATION/IV/DRIP/FLUID ORDERSOrder Description Priority Entered Acknowledged InitialedNS IV : Bolus 1000 16:39 05/22/2020 16:58 Neva, then 150 mL/hr Mikey Metcalf RN PA; Reason for ordering with alerts: Clinical consideration given -- 16:39 05/22/2020 Mikey Oswald PAZofran IVP 8 mg 16:39 05/22/2020 16:58 Jeff Metcalf RN PA; Reason for ordering with alerts: Clinical consideration given -- 16:39 05/22/2020 Mikey Oswald PAMorphine IVP 4 mg 16:39 05/22/2020 16:58 Jeff(HIGH ALERT Mikey Metcalf RNMEDICATION) PA; Reason for ordering with alerts: Clinical consideration given -- 16:39 05/22/2020 Mikey Oswald PADilaudid IVP 2 mg 18:03 05/22/2020 18:06 Jeff(HIGH ALERT Mikey Metcalf RNMEDICATION) PA;GENERAL ORDERSOrder Description Priority Entered Acknowledged InitialedNPO 16:3 9 05/22/2020 16:51 Jeff 3 OrderSheet [facility] Emergency Department [address] [place] [address] Phone #: ext- [phone] 05/22/2020 16:19 Patient: NI DIAZ Sex: F : 1980 Age: 40y Mikye Metcalf RN PA; Reason for ordering with alerts: Clinical consideration given -- 16:39 05/22/2020 Mikey Oswald PASaline Lock 16:39 05/22/2020 16:51 Jeff SIMMONS; Reason for ordering with alerts: Clinical consideration given -- 16:39 05/22/2020 Kahlil SIMMONS[Electronically signed by Jeff Metcalf RN (19:40 05/22/2020)][Electronically signed by Mikey Oswald (21:35 05/22/2020)][Electronically locked by Jeff Metcalf RN (19:40 05/22/2020)] Name Value Range Interpretation Code Description Data Sumaya rce(s) Supporting Document(s) ID Date Data Source [id number] 05/22/2020 04:24:00 PM EDT [facility] 1 Medication Reconciliation Report [facility] Emergency Department [address] [place] [address] Phone #: ext- [phone] 05/22/2020 16:19 Patient: NI DIAZ Sex: F : 1980 Age: 40yWeight: 68.0 kgHeight/Length: 67 in.BMI: 23.5ALLERGIES: Levaquin, Sulfa Antibiotics, traZODone HClThe patient's Home Medications are listed below:CONTINUE TAKING THE FOLLOWING MEDICATIONS: Ambien Oral 7.5, daily, via J tube, prn,at bedtime Benadryl IV 50mg QDAY for nausea, 2x a day Carafate Oral 1 gm, q4h, via J tube Creon Oral ([id number] unit) 1 capsule, 4x a day, J tube FLUoxetine HCl Oral 20 mg, daily, via J tube Ondansetron HCl Injection 8 mg IVP, q8h, prn oxyCODONE HCl Oral 100/5 ml; 1ML, 4x a day, via J tube, prn Protonix Intravenous (40 mg), 2x a day Tylenol Oral, prnThe source(s) of the original Home Medication information:patientThe following Me dications were given to the patient in the Emergency Department:NS [IV] IV Fluids bolus 0, then 1000 mL/hr, administered: 05/22/2020 4:58:00 PMZofran [IVP] IVP 8 mg, administered: 05/22/2020 4:58:00 PMMorphine [IVP] IVP 4 mg, administered: 05/22/2020 4:58:00 PM 2 Medication Reconciliation Report [facility] Emergency Department [address] [place] [address] Phone #: ext- [phone] 05/22/2020 16:19 Patient: NI DIAZ Sex: F : 1980 Age: 40yDilaudid [IVP] IVP 2 mg, administered: 05/22/2020 6:06:00 PMNS [IV] IV Fluids bolus 0, then 150 mL/hr, administered: 05/22/2020 6:49:00 PMThe following Medications were prescribed to the patient:None. Name Value Range Interpretation Code Description Data Sumaya rce(s) Supporting Document(s) ID Date Data Source [id number] 05/22/2020 04:24:00 PM EDT [facility] 1 Medication Administration Record [facility] Emergency Department [address] [place] [address] Phone #: [phone] 05/22/2020 16:19 Patient: NI DIAZ Sex: F : 1980 Age: 40yWeight: 68.0 kgHeight/Length: 67 inBMI: 23.5ALLERGIES: Levaquin, Sulfa Antibiotics, traZODone HCl Date/Time Medication Administered Medication OrderedStart NS [IV] NS IV : Bolus 1000 mL, then 55242:58 05/22/2020 Dose: IV Fluids mL/Julissa Metcalf RN Rate: 1000 mL/hr over 1 hour(s)---- Dispensed: 1000 mL bagStop Site: #1 right PICC18:44 05/22/2020PeMAGGI [place] NS [IV] NS IV : Bolus 1000 mL, then 97298:49 05/22/2020 Dose: IV Fluids mL/Julissa Metcalf RN Rate: 150 mL/hr over 8 hour(s)---- Dispensed: 1000 mL bagStop Site: #1 right PICC19:33 05/22/2020PeOtero RNGiven ZOFRAN [IVP] (ONDANSETRON HCL) Zofran IVP 8 mg16:58 05/22/2020 Dose: 8 mg IVPPgabriela Metcalf RN Site: #1 right PICCGiven MORPHINE [IVP] Morphine IVP 4 mg (HIGH ALERT16:58 05/22/2020 Dose: 4 mg IVP MEDICATION)Jeff Metcalf RN Site: #1 right PICCGiven DILAUDID [IVP] (HYDROMORPHONE Dilaudid IVP 2 mg (HIGH ALERT18:06 05/22/2020 HCL) MEDICATION)Jeff Metcalf RN Dose: 2 mg IVP Site: #1 right PICC Name Value Range Interpretation Code Description Data Sumaya rce(s) Supporting Document(s) ID Date Data Source [id number] 05/22/2020 04:24:00 PM EDT [facility] 1 General Instructions [facility] Emergency Department [address] [place] [address] Phone #: ext- [phone] 05/22/2020 16:19 Patient: NI DIAZ Sex: F : 1980 Age: 40yAcute generalized abdominal pain.ConstipationINSTRUCTIONSWarnings: GENERAL WARNINGS: Return or contact your physician immediately if your conditionworsens or changes unexpectedly, if not improving as expected, or if other problems arise.SPECIFICALLY, return if you develop vomiting, the inability to keep fluids down, blood in vomitus or bloodin diarrhea; or if there is no improvement in the pain in the abdomen.Your Current Medications: Your current home medications have been reviewed.CONTINUE TAKING THE FOLLOWING MEDICATIONS:Ambien Oral : 7.5 daily, prn, at bedtime, via J tube.Benadryl IV 50mg QDAY for nausea* : 2x a day.Carafate Oral : 1 gm q4h, via J tube.Creon Oral : Capsule Delayed Release Particles [id number] unit, 1 capsule 4x a day, J tube.FLUoxetine HCl Oral : 20 mg daily, via J tube.Ondansetron HCl Injection : 8 mg IVP q8h, prn.oxyCODONE HCl Oral : 100/5 ml; 1ML 4x a day, prn, via J tube.Protonix Intravenous : Solution Reconstituted 40 mg, 2x a day.Tylenol Oral : prn.Follow-up:Follow up with your doctor. Call for the next available appointment. Reason for referral: evaluation andtreatment. Summary of care provided to patient and family.Understanding of the discharge instructions verbalized by patient and family. ADDITIONAL INFORMATIONUnknown Causes of Abdominal Pain (Female) 2 General Instructions [facility] Emergency Department [address] [place] [address] Phone #: ext- [phone] 05/22/2020 16:19 Patient: NI DIAZ Sex: F : 1980 Age: 40yThe exact cause of your belly (abdominal) pain is not clear. This does not mean that this is somethingto worry about. Everyone likes to know the exact cause of the problem. But sometimes with bellypain, there is no clear-cut cause, and this co uld be a good thing. The good news is that yoursymptoms can be treated, and you will feel better.Your condition does not seem serious now. But sometimes the signs of a serious problem may takemore time to appear. For this reason, it is important for you to watch for any new symptoms,problems, or worsening of your condition.Over the next few days, the abdominal pain may come and go. Or it may be constant. Other commonsymptoms can include nausea and vomiting. Sometimes it can be difficult to tell if you feel nauseous.You may just feel bad and not connect that feeling to nausea. Constipation, diarrhea, and a fever maygo along with the pain.The pain may continue even if treated correctly over the following days. Depending on how things go,sometimes the cause can become clear and may need more or different treatment. Additionalevaluations, medicines, or tests may also be needed.Home careYour healthcare provider may prescribe medicine for pain, symptoms, or an infection. Follow [facility] provider's instructions for taking these medicines. 3 General Instructions [facility] Emergency Department [address] [place] [address] Phone #: ext- [phone] 05/22/2020 16:19 Patient: NI DIAZ Sex: F : 1980 Age: 40yGeneral care Rest as much as you can until your next exam. No strenuous activities. Try to find positions that ease discomfort. A small pillow placed on the abdomen may help relieve pain. Something warm on your abdomen (such as a heating pad) may help, but be careful not to burn yourself.Diet Don't force yourself to eat, especially if having cramps, vomiting, or diarrhea. Water is important so you don't get dehydrated. Soup may also be good. Sports drinks may also help, especially if they are not too acidic. Don't drink sugary drinks as this can make things worse. Take liquids in small amounts. Don't guzzle them. Caffeine sometimes makes the pain and cramping worse. Don't take dairy products if you have vomiting or diarrhea. Don't eat large amounts at a time. Wait a few minutes between bites. Eat a diet l ow in fiber (called a low-residue diet). Foods allowed include refined breads, white rice, fruit and vegetable juices without pulp, tender meats. These foods will pass more easily through the intestine. Don't have whole-grain foods, whole fruits and vegetables, meats, seeds and nuts, fried or fatty foods, dairy, alcohol and spicy foods until your symptoms go away.Follow-up careFollow up with your healthcare provider, or as advised, if your pain does not begin to improve in thenext 24 hours.Call [phone] if any of these occur: Trouble breathing Confusion Fainting or loss of consciousness Rapid heart rate 4 General Instructions [facility] Emergency Department [address] [place] [address] Phone #: ext- [phone] 05/22/2020 16:19 Patient: NI DIAZ Sex: F : 1980 Age: 40y SeizureWhen to seek medical adviceCall your healthcare provider right away if any of these occur: Pain gets worse or moves to the right lower abdomen New or worsening vomiting or diarrhea Swelling of the abdomen Unable to pass stool for more than 3 days Fever of 100.4F (38C) or higher, or as directed by your healthcare provider. Blood in vomit or bowel movements (dark red or black color) Yellow color of eyes and skin (jaundice) Weakness, dizziness Chest, arm, back, neck, or jaw pain Unexpected vaginal bleeding or missed period Can't keep down liquids or water and you are getting dehydrated [id number] [employer]. [address] [place] [address]. All rights reserved. This information is not intended as asubstitute for professional medical care. Always follow your healthcare professional's instructions.Constipation (Adult)Constipation means that you have bowel movements that are less frequent than usual. Stools oftenbecome very hard and difficult to pass.Constipation is very common. At some point in life, it affects almost everyone. Since everyone'sbowel habits are different, what is constipation to one person may not be to another. Your healthcareprovider may do tests to diagnose constipation. It depends on what he or she finds when evaluatingyou. 5 General Instructions [facility] Emergency Department [address] [place] [address] Phone #: ext- [phone] 05/22/2020 16:19 Patient: NI DIAZ Sex: F : 1980 Age: 40ySymptoms of constipation include: Abdominal pain Bloating Vomiting Painful bowel movements Itching, swelling, bleeding, or pain around the anusCausesConstipation can have many causes. These include: Diet low in fiber Too much dairy Not drinking enough liquids Lack of exercise or physical activity (especially true for older adults) Changes in lifestyle or daily routine, including , aging, work, and travel Frequent use or misuse of laxatives Ignoring the urge to have a bowel movement or delaying it until later Medicines, such as certain prescription pain medicines, iron supplements, antacids, certain antidepressants, and calcium supplements Diseases like irritable bowel syndrome, bowel obstructions, stroke, diabetes, thyroid disease, Parkinson disease, hemorrho ids, and colon cancerComplications 6 General Instructions [facility] Emergency Department [address] [place] [address] Phone #: ext- [phone] 05/22/2020 16:19 Patient: NI DIAZ Sex: F : 1980 Age: 40yPotential complications of constipation can include: Hemorrhoids Rectal bleeding from hemorrhoids or anal fissures (skin tears) Hernias Dependency on laxatives Chronic constipation Fecal impaction, a severe form of constipation in which a large amount of hard stool is in your rectum that you can't pass Bowel obstruction or perforationHome careAll treatment should be done after talking with your healthcare provider. This is especially true if youhave another medical problems, are taking prescription medicines, or are an older adult. Treatmentmost often involves lifestyle changes. You may also need medicines. Your healthcare provider will tellyou which will work best for you. Follow the advice below to help avoid this problem in the future.Lifestyle changesThese lifestyle changes can help prevent constipation: Diet. Eat a hi gh-fiber diet, with fresh fruit and vegetables, and reduce dairy intake, meats, and processed foods Fluids. It's important to get enough fluids each day. Drink plenty of water when you eat more fiber. If you are on diet that limits the amount of fluid you can have, talk about this with your healthcare provider. Regular exercise. Check with your healthcare provider first.MedicinesTake any medicines as directed. Some laxatives are safe to use only every now and then. Others canbe taken on a regular basis. While laxatives don't cause bowel dependence, they are treating thesymptoms. So your constipation may return if you don't make other changes. Talk with yourhealthcare provider or pharmacist if you have questions.Prescription pain medicines can cause constipation. If you are taking this kind of medicine, ask yourhealthcare provider if you should also take a stool softener. 7 General Instructions [facility] Emergency Department [address] [place] [address] Phone #: ext- [phone] 05/22/2020 16:19 Patient: NI DIAZ Sex: F : 1980 Age: 40yMedicines you may take to treat constipation include: Fiber supplements Stool softeners Laxatives Enemas Rectal suppositoriesFollow-up careFollow up with your healthcare provider if symptoms don't get better in the next few days. You mayneed to have more tests or see a specialist.Call 911Call 911 if any of these occur: Trouble breathing Stiff, rigid abdomen that is severely painful to touch Confusion Fainting or loss of consciousness Rapid heart rate Chest painWhen to seek medical adviceCall your healthcare provider right away if any of these occur: Fever of 100.4F (38C) or higher, or as directed by your healthcare provider Failure to resume normal bowel movements Pain in your abdomen or back gets worse Nausea or vomiting Swelling in your abdomen Blood in the stool Black, tarry stool 8 General Instructions [facility] Emergency Department [address] [place] [address] Phone #: [phone] 05/22/2020 16:19 Patient: NI DIAZ Sex: F : 1980 Age: 40y Involuntary weight loss Weakness 1999- 2017 [employer]. [address] [place] [address]. All rights reserved. This information is not intended as asubstitute for professional medical care. Always follow your healthcare professional's instructions. You have been given the following additional information: Abdominal Pain, Unknown Cause, (Female) Constipation (Adult)(Electronically signed by TROY Rosa 05/22/2020 21:35) Name Value Range Interpretation Code Description Data Sumaya rce(s) Supporting Document(s) ID Date Data Source [id number] 05/22/2020 04:24:00 PM EDT [facility] 1 Clinical Report - Nurses [facility] Emergency Department [address] [place] [address] Phone #: ext [phone] 05/22/2020 16:19 [id number] Sex: [facility] : 1980 Age: 40yTRIAGEArrived by private vehicle. Historian: patient. Accompanied by spouse.Triage time: late entry - 16:19 05/22/2020. Acuity: LEVEL 3.Chief Complaint: (right flank pain).Alert.Onset. (5 days ago). ( Pt c/o right sided flank pain with associated vomiting; Pt states she has also hadintermittent fever for the past 3 days, as high as 103. Pt also states some difficulty urinating. Pt has pmhof both nephrolithiasis and pyelo in the past. 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 (16:31 05/22/2020). --16:31 05/22/20Lucía Navarrete R.N.16:24 05/22/20. BP: 107/75. MAP: 85. HR: 121. RR: 22. O2 saturation: 99% on room air. Temp: 97.5 F(oral). Pain level now 05/30. --16:31 05/22/20 Lucía Navarrete R.N.Weight: 68 kg stated. Height/Length: 67 inches Per Patient. BMI: 23.5. --16:18 05/22/20 Lucía Navarrete R.N.MedicationsAmbien Oral 7.5, daily as needed, at bedtime, via J tube. Benadryl IV 50mg QDAY for nausea, 2x a day. Carafate Oral 1 gm, q4h, via J tube. Creon Oral (Capsule Delayed Release Particles [id number] unit) 1 capsule, 4x a day, J tube. FLUoxetine HCl Oral 20 mg, daily, via J tube. Ondansetron HCl Injection 8 mg IVP, q8h as needed. oxyCODONE HCl Oral 100/5 ml; 1ML, 4x a day as needed, via J tube. Protonix Intravenous (Solution Reconstituted 40 mg), 2x a day. Tylenol Oral, as needed. --16:27 05/22/20 Lucía Navarrete R.N.AllergiesLevaquin.Sulfa Antibiotics.traZODone HCl. --16:27 05/22/20 Lucía Navarrete R.N. 2 Clinical Report - Nurses [facility] Emergency Department [address] [place] [address] Phone #: ext- [phone] 05/22/2020 16:19 [id number] Sex: F : 1980 Age: 40y Medication/allergy information source: the patient. --16:31 05/22/20 Lucía Navarrete R.N. History PAST MEDICAL HX: Immunizations: up-to-date. The patient has had a hysterectomy. SOCIAL HX: Never smoker. No alcohol use or drug use. No recent travel. No known contact with a sick individual. She was offered HIV testing but declined. Patient education was provided. She was offered hepatitis C testing but declined. Patient education was provided. ( COVID screen negative except for fever; low risk). She has not traveled outside the [place] Infectious disease exposure: No infectious disease exposure. Patient is a known carrier of MRSA. (PT has had known MRSA in a wound, no symptoms currently). Patient is not a known carrier of tuberculosis, hepatitis, HIV, VRE or CRE. SELF HARM ASSESSMENT: Self harm assessment was performed. The patient answered "no" to the question(s) "Do you have thoughts of harming or killing yourself?" and "Do you have a plan for harming or killing yourself?". ABUSE ASSESSMENT: Abuse assessment. The patient had positive responses to the question(s) "Do you feel safe in your home?". Abuse denied. No suspicion of abuse. No report of abuse. NUTRITIONAL RISK ASSESSMENT: The nutritional risk assessment revealed no deficiencies. FUNCTIONAL ASSESSMENT: Functional assessment: no impairments noted. LEARNING NEEDS ASSESSMENT: The learning needs assessment revealed no barriers. FALL RISK ASSESSMENT: Fall risk assessment completed. No risk factors identified. SKIN INTEGRITY ASSESSMENT: Skin integrity risk assessment completed. No skin integrity risk identified. --16:05/22/20 Lucía Navarrete R.N. Interventions Identification band on patient. --16:05/22/20 Lucía Navarrete R.N.PHYSICAL ASSESSMENTAmbulatory to room.GENERAL / NEURO / PSYCH: Alert. Orien romario X 4. Appears in pain and in distress.HEENT: Mucous membranes are pink.RESPIRATORY: Respirations not labored. Breath sounds within normal limits.CVS: Normal sinus rhythm noted. Capillary refill less than 2 seconds.GI / : The patient has had nausea. Emesis noted. Abdomen soft. Abdominal tenderness in the rightside of the abdomen, right lower quadrant and lower abdomen (right flank tenderness). Bowel soundswithin normal limits.SKIN: Skin is warm and dry. --16:38 05/22/20 Jeff Metcalf RN. 3 Clinical Report - Nurses [facility] Emergency Department [address] [place] [address] Phone #: ext- [phone] 05/22/2020 16:19 Patient: NI DIAZ Sex: F : 1980 Age: 40yNURSING PROGRESS NOTESPatient ID band checked for patient name and birthdate: patient confirmed. Instructions provided to collectclean catch urine and patient verbalized understanding. Clean catch urine collected; sample sent to lab forurinalysis. Specimen labeled in the presence of the patient. --16:31 05/22/20 Lucía Navarrete, Lars 16:39 05/22/2020 Site #1 started via IV using a PICC line in the right with an 18g angiocath (Galicia dual port to right anterior chest wall, pt insist on using this for blood draw, no IV per pt). --16:39 05/22/20 Jeff Metcalf RN 16:58 05/22/2020 Started bag #1 1000 mL IV Fluids NS; at 1000 mL/hr over 1 hour(s) via site #1 via IV pump. Allergies verified and confirmed 5 rights. IV patency established. IV site checked: no pain, rednes s, or swelling. IV flushed thoroughly pre- and post-medication administration. Information reviewed with patient including reason for taking this medication. Verbalizes understanding. --16:58 05/22/20 Jeff Metcalf RN 16:58 05/22/2020 Zofran (Ondansetron HCl) IVP 8 mg given over 2 minute(s) via site #1. Allergies verified and confirmed 5 rights. IV patency established. IV site checked: no pain, redness, or swelling. IV flushed thoroughly pre- and post-medication administration. IVP given by RN. Information reviewed with patient including reason for taking this medication. Verbalizes understanding. --16:58 05/22/20 Jeff Metcalf RN 16:58 05/22/2020 Morphine IVP 4 mg given over 2 minute(s) via site #1. Allergies verified and confirmed 5 rights. IV patency established. IV site checked: no pain, redness, or swelling. IV flushed thoroughly pre- and post-medication administration. IVP given by RN. Information reviewed with patient including reason for taking this medication and sedative warning. Verbalizes understanding. --16:59 05/22/20 Jeff Metcalf RN ( peripheral IV attempt unsuccessful x 2, pt states no more attempts, provider made aware). --18:03 05/22/20 Jeff Metcalf RN 18:06 05/22/2020 Dilaudid (HYDROmorphone HCl) IVP 2 mg given over 3 minute(s) via site #1. Allergies verified and confirmed 5 rights. IV patency established. IV site checked: no pain, redness, or swelling. IV flushed thoroughly pre- and post-medication administration. IVP given by RN. Information reviewed with patient including reason for taking this medication and sedative warning. Verbalizes understanding. --18:06 05/22/20 Jeff Metcalf RN 18:48 05/22/20. BP: 97/65. MAP: 75. HR: 98. RR: 16. O2 saturation: 97%. Pain level now: 10. --18:49 05/22/20 Jeff Metcalf RN 18:44 05/22/2020 IV Fluids NS via IV site #1 Discontinued: bag #1 infused. Total amount infused: 990 mL. IV patency established. IV site checked: no pain, redness, or swelling. IV flushed thoroughly. --18:49 05/22/20 Jeff Metcalf RN 18:49 05/22/2020 Started bag #2 1000 mL IV Fluids NS; at 150 mL/hr over 8 hour(s) via site #1 via IV pump. Allergies verified and confirmed 5 rights. IV patency established. IV site checked: no pain, redness, 4 Clinical Report - Nurses [facility] Emergency Department [address] [place] [address] Phone #: ext- [phone] 05/22/2020 16:19 Patient: NI DIAZ Sex: F : 1980 Age: 40y or swelling. IV flushed thoroughly pre- and post-medication administration. Information reviewed with patient including reason for taking this medication. Verbalizes understanding. --18:49 05/22/20 Jeff Metcalf RN 19:33 05/22/2020 IV Fluids NS via IV site #1 Discontinued: STOPPED upon discharge. Total amount infused: 150 mL. IV patency established. IV site checked: no pain, redness, or swelling. IV flushed thoroughly. --19:38 05/22/20 Jeff Metcalf RN 19:39 05/22/2020 Site #1 removed upon discharge (did not remove, flushed each port with 300 units of heparin). --19:39 05/22/20 Jeff Metcalf RN.DISPOSITION / DISCHARGE Condition at departure: improved and stable. Discharge instructions provided and reviewed with the patient. Patient verbalized understanding. Written instructions provided in Pryde[place]. The patient was discharged by the physician embalmer assistant. She was discharged home and accompanied by spouse. She left ambulatory and via private vehicle. Spouse driving. --19:40 05/22/20 Jeff Metcalf RN 19:39 05/22/20. BP: 113/70. MAP: 84. HR: 119. RR: 16. O2 saturation: 100%. Pain level now: 02/27. --19:40 05/22/20 Jeff Metcalf RN.Locked/Released at 05/22/2020 19:40 by Jeff Metcalf RN Name Value Range Interpretation Code Description Data Sumaya rce(s) Supporting Document(s) ID Date Data Source [id number] 05/22/2020 04:24:00 PM EDT [facility] 1 Clinical Report - Physicians/Mid Levels [facility] Emergency Department [address] [place] [address] Phone #: ext- [phone] 05/22/2020 16:19 Patient: NI DIAZ Sex: F : 1980 Age: 40y Time Seen: 16:35 05/22/2020. Arrived- By private vehicle. Historian- patient and spouse.HISTORY OF PRESENT ILLNESS Chief Complaint: ABDOMINAL PAIN and FLANK PAIN and VOMITING and NAUSEA. This started 5 days ago; Pt c/o right sided flank pain with associated vomiting; Pt states she has also had intermittent fever for the past 3 days, as high as 103. Pt also states some difficulty urinating. Pt has pmh of both nephrolithiasis and pyelo in the past. Pt has a large pmh of gastroparesis and malabsorption syndrome and has a galicia to her right chest, and receives TPN and has a maame button for jejunal feedings.). She has had fever and vomiting. and is still present. It was abrupt in onset and has been constant. It is described as "pain", sharp and cramping and it is described as located in the right flank and the right abdomen. At its maximum, severity described as severe. When seen in the E.D., severity described as severe. The patient has had nausea and vomiting. Similar symptoms previously. Patient has had similar symptoms several times. Recent medical care: Not recently seen/assessed.REVIEW OF SYSTEMSThe patient has had a hysterectomy. No constipation, black stools, hematemesis, difficulty with urinationor pain with urination. No urinary frequency, bloody stools, headache, sore throat or blurred vision. Nochest pain, difficulty breathing, cough, joint pain or skin rash. The patient has had fever and chills but nothad weight loss.PAST HISTORYMedications:Ambien Oral 7.5, daily as needed, at bedtime, via J tube. Benadryl IV 50mg QDAY for nausea, 2x a day. Carafate Oral 1 gm, q4h, via J tube. Creon Oral (Capsule Delayed Release Particles [id number] unit) 1 capsule, 4x a day, J tube. FLUoxetine HCl Oral 20 mg, daily, via J tube. Ondansetron HCl Injection 8 mg IVP, q8h as needed. oxyCODONE HCl Oral 100/5 ml; 1ML, 4x a day as needed, via J tube. Protonix Intravenous (Solution Reconstituted 40 mg), 2x a day. Tylenol Oral, as needed.Allergies:Levaquin.Sulfa Antibiotics.traZODone HCl.SOCIAL HISTORY 2 Clinical Report - Physicians/Mid Levels [facility] Emergency Department [address] [place] [address] Phone #: ext- [phone] 05/22/2020 16:19 [id number] Sex[facility] F : 1980 Age: 40y Never smoker. No alcohol use or drug use.PHYSICAL EXAMVital Signs: 05/22/2020 16:24 BP: 107/75. MAP: 85. HR: 121. RR: 22. O2 saturation: 99% on room air.Temp: 97.5 F. Have been reviewed as normal. Oxygen saturation normal.Appearance: Alert. Oriented X3. No acute distress.Eyes: Pupils equal, round and reactive to light. Eyes normal inspection.ENT: Ears normal. Nose normal. Pharynx normal.Neck: Normal inspection. Neck supple.CVS: Tachycardia. Heart sounds normal.Respiratory: No respiratory distress.Abdomen: Soft. Mild tenderness in the right side of the abdomen. Bowel sounds normal. Noorganomegaly. No mass.Back: Moderate CVA tenderness on the right.Skin: Skin warm and dry. Normal skin color. No rash. Normal skin turgor.Extremities: Extremities exhibit normal ROM. No lower extremity edema.Neuro: Oriented X 3.LABS, X-RAYS, AND EKGCT Abdomen - Pelvis: Mild to moderate amount of stool. Mild constipation. Splenomegaly. No free air orfree fluid. Study type: upper abdomen; lower abdomen; pelvis. Abdomen - pelvic CT performed withoutcontrast. The study was interpreted by the radiologist and contemporaneously by me. Interpretationtime: 19:21 05/22/2020.Laboratory Tests: Laboratory tests have been ordered, with results reviewed and considered in themedical decision making process. CT Abd PEL W/ IV Contrast Only: (LUISANA: 05/22/2020 17:11) ( [facility] 18:02) Canceled Reason(s): Abdominal Pain Reason(s): Abdominal Pain TRANSPORTATION: WC IV? IV?(Yes) O2? Oxygen?(No) Ro CBC w Diff: (LUISANA: 05/22/2020 16:45) ( MsgRcvd 05/22/2020 17:10) Final results Test Result Flag Units (Reference) CBC W/AUTOMATED DIFF COMPLETE BLOOD COUNT WBC 6.2 10/uL (4.2 - 11.0) RBC 3.68 L 10/uL (4.20 - 5.40) HEMOGLOBIN 9.8 L g/dL (12.0 - 16.0) HEMATOCRIT 31.0 L % (37.0 - 47.0) MCV 84.2 fL (81.0 - 101) MCH 26.6 L pg (27.0 - 34.0) MCHC 31.6 g/dL (31.0 - 36.0) RDW 15.4 H % (11.5 - 14.5) PLATELETS 340 10/uL (150 - 450) MPV 9.7 fL (7.4 - 10.4) NEUT 67.9 % (37.0 - 80.0) LYMPH 17.7 L % (25.0 - 40.0) MONO 9.0 H % (3.0 - 8.0) EOS 4.5 % (0.0 - 7.0) 3 Clinical Report - Physicians/Mid Levels [facility] Emergency Department [address] [place] [address] Phone #: ext- [phone] 05/22/2020 16:19 Patient: NI DIAZ Sex: F : 1980 Age: 40y BASO 0.6 % (0.0 - 2.5) %IG 0.3 H % (0.0 - 0.0) %NRBC 0.0 % (0.0 - 0.0) #NEUT 4.21 10/uL (2.00 - 6.90) #LYMPH 1.10 10/uL (0.60 - 3.40) #MONO 0.56 10/uL (0.00 - 0.90) #EOS 0.28 10/uL (0.00 - 0.70) #BASO 0.04 10/uL (0.00 - 0.20) #IG 0.02 10/uL (0.00 - 0.10) #NRBC 0.00 10/uL (0.00 - 0.00) MANUAL DIFF NOT INDICATED RBC MORPH NOT INDICATEDCMP: (LUISANA: 05/22/2020 16:45) ( MsgRcvd 05/22/2020 17:28) Final results Test Result Flag Units (Reference) COMPREHENSIVE METABOLIC PANEL COMPREHENSIVE METABOLIC PANEL SODIUM 135 mEq/L (134 - 153) POTASSIUM 3.8 mEq/L (3.6 - 5.0) CHLORIDE 103 mEq/L (98 - 107) CO2 21 L MEQ/L (22 - 30) GLUCOSE 131 H MG/DL (65 - 110) BUN 7 MG/DL (7 - 21) CREATININE 0.8 MG/DL (0.7 - 1.5) BUN/CREAT 9 (8 - 27) TOTAL PROTEIN 6.2 L G/DL (6.3 - 8.2) ALBUMIN 4.0 G/DL (3.9 - 5.0) GLOBULIN 2.2 L GM/DL (2.4 - 3.2) A/G RATIO 1.8 (0.8 - 2.0) CALCIUM 9.0 MG/DL (8.4 - 10.2) TOTAL BILI <0.7 MG/DL (0.2 - 1.3) ALKALINE PHOS 143 H U/L (38 - 126) SGOT/AST 20 U/L (5 - 40) SGPT/ALT 35 U/L (7 - 56) ANION GAP 11.0 mmol/L (8.0 - 16.0) AGE 40 yrs NON- AA GFR >60 mL/min AFR AMER GFR >60 mL/min Male GFR Interprentation 20-49 yrs >60 mL/min Byplsm57-10 yrs >56 mL/min Normal 60- 69 yrs >49 mL/min Normal 70-79yrs>42 mL/min Normal 80 and above >35 mL/min Normal Female GFRInterpretation 20-39 yrs >60 mL/min Normal 40-49 yrs >58 mL/minNormal 50-59 yrs >51 mL/min Normal 60-69 yrs >45 mL/min Fivkpq73-66 yrs >39 mL/min Normal 80 and above >32 mL/min NormalLipase: (LUISANA: 05/22/2020 16:45) ( MsgRcvd 05/22/2020 17:28) Final results Test Result Flag Units (Reference) LIPASE 20 U/L (13 - 60)Lactic Acid: (LUISANA: 05/22/2020 16:45) ( MsgRcvd 05/22/2020 17:24) Final results Test Result Flag Units (Reference) LACTIC ACID 1.3 MMOL/L (0.2 - 2.2)Urinalysis: (LUISANA: 05/22/2020 16:28) ( MsgRcvd 05/22/2020 17:09) Final results Test Result Flag Units (Reference) URINALYSIS 4 Clinical Report - Physicians/Mid Levels [facility] Emergency Department [address] [place] [address] Phone #: ext- [phone] 05/22/2020 16:19 Patient: NI DIAZ Sex: F : 1980 Age: 40y URINALYSIS SOURCE R COLOR yellow (NORMAL: Yello CLARITY hazy (NORMAL: Clear SPEC GRAVITY 1.020 (1.001 - 1.030 pH 6 (5 - 9) GLUCOSE NORM (NORMAL: Negat BILIRUBIN NEG (NORMAL: Negat KETONE NEG (NORMAL: Negat PROTEIN 30 (NORMAL: Negat NITRITE NEG (NORMAL: Negat BLOOD 10 A (NORMAL: Negat LEUK EST NEG (NORMAL: Negat UROBILINOGEN NOR (less than 1.0 MICROSCOPIC See Below WBC 1 - 3 (NORMAL: NONE RBC None Seen (NORMAL: NONE EPITHELIAL MANY A (NORMAL: NONE BACTERIA Trace (NORMAL: NONE.PROGRESS AND PROCEDURESCourse of Care: 19:May 22 2020. Evaluation after observation and results of tests back. (Discussedlabs, CT and exam findings and pt is agreeable with dx and t x plan.). Patient counseled in person regarding the patient's stable condition, test re sults, diagnosis and need for follow-up. Patient agrees with plan of care. May 22 2020. Disposition: Discharged home in good and improved condition (19:25 May 22 2020).CLINICAL IMPRESSION Acute generalized abdominal pain. ConstipationINSTRUCTIONS Warnings: GENERAL WARNINGS: Return or contact your physician immediately if your condition worsens or changes unexpectedly, if not improving as expected, or if other problems arise. SPECIFICALLY, return if you develop vomiting, the inability to keep fluids down, blood in vomitus or blood in diarrhea; or if there is no improvement in the pain in the abdomen. Your Current Medications: Your current home medications have been reviewed. CONTINUE TAKING THE FOLLOWING MEDICATIONS: Ambien Oral : 7.5 daily, prn, at bedtime, via J tube. Benadryl IV 50mg QDAY for nausea* : 2x a day. 5 Clinical Report - Physicians/Mid Levels [facility] Emergency Department [address] [place] [address] Phone #: ext- [phone] 05/22/2020 16:19 Patient: NI DIAZ Sex: F : 1980 Age: 40y Carafate Oral : 1 gm q4h, via J tube. Creon Oral : Capsule Delayed Release Particles [id number] unit, 1 capsule 4x a day, J tube. FLUoxetine HCl Oral : 20 mg daily, via J tube. Ondansetron HCl Injection : 8 mg IVP q8h, prn. oxyCODONE HCl Oral : 100/5 ml; 1ML 4x a day, prn, via J tube. Protonix Intravenous : Solution Reconstituted 40 mg, 2x a day. Tylenol Oral : prn. Follow-up: Follow up with your doctor. Call for the next available appointment. Reason for referral: evaluation and treatment. Summary of care provided to patient and family. Understanding of the discharge instructions verbalized by patient and family.(Electronically signed by TROY Rosa 05/22/2020 21:35) Name Value Range Interpretation Code Description Data Sumaya rce(s) Supporting Document(s) ID Date Data Source [id number] 05/28/2020 07:00:00 AM EDT [facility] [id number] Name Value Range Interpretation Code Description Data Sumaya rce(s) Supporting Document(s) Bacteria identified in Blood by Culture [facility] NO GROWTH AFTER 5 DAYS ID Date Data Source [id number] 05/29/2020 12:38:00 PM EDT [facility] Name Value Range Interpretation Code Description Data Sumaya rce(s) Supporting Document(s) CULTURE BLOOD [facility] _CULTURE BLOOD_ TEST PERFORM ED AT [address] [address] CLIA# [id number] SEE SCANNED REPORT{ PRELIM ID Date Data Source [id number] 05/29/2020 12:38:00 PM EDT [facility] Name Value Range Interpretation Code Description Data Sumaya rce(s) Supporting Document(s) CULTURE BLOOD [facility] _CULTURE BLOOD_ TEST PERFORM ED AT [address] [address] CLIA# [id number] SEE SCANNED REPORT{ PRELIM ID Date Data Source [id number] 05/22/2020 05:28:00 PM EDT [facility] Name Value Range Interpretation Code Description Data Sumaya rce(s) Supporting Document(s) COMPREHENSIVE METABOLIC PANEL [facility] COMPREHENSIVE METABOLIC PANEL Sodium [Moles/volume] in Serum or Plasma 135 mEq/L 134 - 153 [facility] Potassium [Moles/volume] in Serum or Plasma 3.8 mEq/L 3.6 - 5.0 [facility] Chloride [Moles/volume] in Serum or Plasma 103 mEq/L 98 - 107 [facility] Carbon dioxide, total [Moles/volume] in Serum or Plasma 21 MEQ/L 22 - 30 L [facility] Glucose [Mass/volume] in Serum or Plasma 131 MG/DL 65 - 110 H [facility] BUN 7 MG/DL 7 - [facility] Creatinine [Mass/volume] in Serum or Plasma 0.8 MG/DL 0.7 - 1.5 [facility] BUN/CREAT 9 8 - 27 [facility] or Protein [Mass/volume] in Serum or Plasma 6.2 G/DL 6.3 - 8.2 L [facility] Albumin [Mass/volume] in Serum or Plasma 4.0 G/DL 3.9 - 5.0 [facility] Globulin [Mass/volume] in Serum by calculation 2.2 GM/DL 2.4 - 3.2 L [facility] A/G RATIO 1.8 0.8 - 2.0 [facility] Calcium [Mass/volume] in Serum or Plasma 9.0 MG/DL 8.4 - 10.2 [facility] Bilirubin.total [Mass/volume] in Serum or Plasma <0.7 MG/DL 0.2 - 1.3 [facility] Alkaline phosphatase [Enzymatic activity/volume] in Serum or Plasma 143 U/L 38 - 126 H [facility] Aspartate aminotransferase [Enzymatic activity/volume] in Serum or Plasma 20 U/L 5 - 40 [facility] Alanine aminotransferase [Enzymatic activity/volume] in Seru m or Plasma 35 U/L 7 - 56 [facility] Anion gap 3 in Serum or Plasma 11.0 mmol/L 8.0 - 16.0 [facility] AGE 40 yrs [facility] al NON-AA GFR >60 mL/min [facility] ital AFR AMER GFR >60 mL/min [facility] Male GFR In terprentation 20-49 yrs >60 mL/min Normal 50-59 yrs >56 mL/min Normal 60-69 yrs >49 mL/min Normal 70-79yrs >42 mL/min Normal 80 and above >35 mL/min Normal Female GFR Interpretation 20-39 yrs >60 mL/min Normal 40-49 yrs >58 mL/min Normal 50-59 yrs >51 mL/min Normal 60-69 yrs >45 mL/min Normal 70-79 yrs >39 mL/min Normal 80 and above >32 mL/min Normal ID Date Data Source [id number] 05/22/2020 05:28:00 PM EDT [facility] Name Value Range Interpretation Code Description Data Sumaya rce(s) Supporting Document(s) Lipase [Enzymatic activity/volume] in Serum or Plasma 20 U/L 13 - 60 [facility] ID Date Data Source [id number] 05/22/2020 05:24:00 PM EDT [facility] Name Value Range Interpretation Code Description Data Sumaya rce(s) Supporting Document(s) Lactate [Moles/volume] in Serum or Plasma 1.3 MMOL/L 0.2 - 2.2 [facility] ID Date Data Source [id number] 05/22/2020 05:10:00 PM EDT [facility] Name Value Range Interpretation Code Description Data Sumaya rce(s) Supporting Document(s) CBC W/AUTOMATED DIFF [facility] COMPLETE BLOOD COUNT Leukocytes [#/volume] in Blood by Automated count 6.2 10^3/uL 4.2 - 1 1.0 [facility] Erythrocytes [#/volume] in Blood by Automated count 3.68 10^6/uL 4. 20 - 5.40 L [facility] Hemoglobin [Mass/volume] in Blood 9.8 g/dL 12.0 - 16.0 L [facility] Hematocrit [Volume Fraction] of Blood by Automated count 31.0 % 3 7.0 - 47.0 L [facility] Erythrocyte mean corpuscular volume [Entitic volume] by Auto mated count 84.2 fL 81.0 - 101 [facility] Erythrocyte mean corpuscular hemoglobin [Entitic mass] by Automated count 26.6 pg 27.0 - 34.0 L [facility] Erythrocyte mean corpuscular hemoglobin concentration [Mass/volume] by Automated count 31.6 g/dL 31.0 - 36.0 [facility] Erythrocyte distribution width [Ratio] by Automated count 15.4 % 11.5 - 14.5 H [facility] Platelets [#/volume] in Blood by Automated count 340 10^3/uL 150 - 45 0 [facility] Platelet mean volume [Entitic volume] in Blood by Automated count 9.7 fL 7.4 - 10.4 [facility] Neutrophils/100 leukocytes in Blood by Automated count 67.9 % 37. 0 - 80.0 [facility] Lymphocytes/100 leukocytes in Blood by Manual count 17.7 % 25.0 - 40.0 L [facility] Monocytes/100 leukocytes in Blood by Automated count 9.0 % 3.0 - 8.0 H [facility] Eosinophils/100 leukocytes in Blood by Automated count 4.5 % 0.0 - 7.0 [facility] Basophils/100 leukocytes in Blood by Automated count 0.6 % 0.0 - 2.5 [facility] %IG 0.3 % 0.0 - 0.0 H [facility] al %NRBC 0.0 % 0.0 - 0.0 [facility] al Neutrophils [#/volume] in Blood by Automated count 4.21 10^3/uL 2.00 - 6.90 [facility] Lymphocytes [#/volume] in Blood by Automated count 1.10 10^3/uL 0.60 - 3.40 [facility] Monocytes [#/volume] in Blood by Automated count 0.56 10^3/uL 0.00 - 0.90 [facility] Eosinophils [#/volume] in Blood by Automated count 0.28 10^3/uL 0.00 - 0.70 [facility] Basophils [#/volume] in Blood by Automated count 0.04 10^3/uL 0.00 - 0.20 [facility] #IG 0.02 10^3/uL 0.00 - 0.10 [facility] #NRBC 0.00 10^3/uL 0.00 - 0.00 [facility] MANUAL DIFF NOT INDICATED [facility] RBC MORPH NOT INDICATED [facility] ID Date Data Source [id number] 05/22/2020 05:09:00 PM EDT [facility] Name Value Range Interpretation Code Description Data Sumaya rce(s) Supporting Document(s) [facility]INALYSIS SOURCE R [facility] al COLOR yellow NORMAL: Yellow [facility] ospital CLARITY hazy NORMAL: Clear [facility] Specific gravity of Urine by Test strip 1.020 1.001 - 1.030 [facility] pH 6 5 - 9 [facility] al Glucose [Mass/volume] in Urine by Test strip NORM NORMAL: Negat lucia [facility] Bilirubin.total [Presence] in Urine by Test strip NEG NORMAL: Negative [facility] Ketones [Presence] in Urine by Test strip NEG NORMAL: Negative [facility] Protein [Mass/volume] in Urine by Test strip 30 NORMAL: Negat lucia [facility] Nitrite [Presence] in Urine by Test strip NEG NORMAL: Negative [facility] BLOOD 10 NORMAL: Negative A [facility] Leukocyte esterase [Presence] in Urine by Test strip NEG DELANO L: Negative [facility] Urobilinogen [Mass/volume] in Urine by Test strip NOR less tenisha n 1.0 mg/dL [facility] MICROSCOPIC See Below [facility] ital WBC 1 - 3 NORMAL: NONE SEEN [facility] Erythrocytes [#/volume] in Urine by Test strip None Seen NORMAL: NON E SEEN [facility] EPITHELIAL MANY NORMAL: NONE SEEN A [facility] Bacteria [Presence] in Urine sediment by Light microscopy Tr nick NORMAL: NONE SEEN [facility] ID Date Data Source [id number] 04/14/2020 03:09:51 PM EDT [facility] Name Value Range Interpretation Code Description Data Sumaya rce(s) Supporting Document(s) Progress Note [facility] DWRNYh0tVlCHHiVn63/NKOnfFCIur7RpPOpyIUs1OEajQFZjO0ReJWE3rO1tUOL3QDbTZkDzGdKlWjJ9 lbm [file] [id number] ID Date Data Source [id number] 03/08/2020 07:05:00 AM EDT [facility] Name Value Range Interpretation Code Description Data Sumaya rce(s) Supporting Document(s) Prealbumin 23 mg/dL 12-34 [facility] ID Date Data Source [id number] 02/23/2020 11:30:51 AM EDT [facility] Name Value Range Interpretation Code Description Data Sumaya rce(s) Supporting Document(s) Progress Note [facility] IWIGAx9uSnXNSpDg01/KWHevVRDpq8RoWUdhQGs8YXugLJTcJ6IqPGY1tJ0zLWK6AQuCXlVeQdPuWYI4 lbm NaUzjSKiTzFTVrZvpTAgAzZPqaGoybqJEuLM8ExCL1SEBiZ66xMVJmMQNdM6RkOZM8ADS+Bj0GOMXeqV JlVJ1BIxpZ6M3QegfODu9wIQ7JYuvelEHG8s1WjCWhHKtXkfeK4I8Vk54mOMEUM2DUh3y/n2SFkMKryK ag0TTqECyB7GLvES1NqAp7IGh2n6/UXuhblqUW/9/+ GcaO6l+rv/2FFyn7ig223P+sMzrtLGXJ0xVON722tbSpkyt/dfw0YdQ5P90ewEdp3YHGEnFz9Eu3KXjz lfTGw+aitZZuRTIvjoaURf95DDh86lo+hU209CVj/KoOO+qsO3n9IYt3AdlX3MuYLYbnciP6zkPh1YKB xVDWIh9mZzRpIsnr3H94O5BHr9d/TWhisu7Q2qTA3E rOnkAPeXhxQ78jBRI0dDDRPqPmhkRDnhfYrnH+gQJXdy9SB7NrAnllR0v0+MMLigng1cespylUR12Ud9 HC7o8T75M/Rqa9NVzSe6tGvQE37s3uHqhae+G4dwp+fyx2SVquBC2otHpyvHLQV2a1QP34M4XVvkakGl NIU3UdsR4bJvup0xNPbf/Yt+PQ+MMvoI6dw2uv8m4H +HxgcRMS0TXGUkLLfSS9M8uC4euJpjA+U+qC5N5gKFRKro4nZ2oxZCvOXQ+0xy3q5N1JcPtU9H4Z2vM8 ntr7irSS6fLOdKiC6dhe4UjyurDrjs/cPKYmM2+4xMsAkhOhtukdXDzYv8f+RRdejkcGlWAxecExru0/ 2gQ5CzbwlbTb7O/w67Xvb4SGA1aXIOy03e2aHdVWnI wVCcQq3M2+DJhKw5fmOzwrHTI4a+xaYcYc/8ZpJcQmL1RXQH/ScaUO8gh5JTvGnVnez2Sp+nKSNcMob1 9gX0vxn97NscVzlx64UtjzbY8X/TycyEeyOhLze3phSM4XoObz/QzXDzMQ/r6/10zF3qAiD22QUfuwlN QA0phtRx60CBNC579XbnzLgv2YqwDnaOjaQb/LY/Day [file] QxOpHH4NXZm= ID Date Data Source [id number] 02/10/2020 02:21:21 PM EDT [facility] Name Value Range Interpretation Code Description Data Sumaya rce(s) Supporting Document(s) Progress Note [facility] OPVTEa5yRzUIRfSw37/AESndXUBdd0QzKQpcRHp9IZmzSGCzT8NvXRQ3fD4dBOV2VMsKVjZhXbBfYBTh lbm BuRzvYUvRaGZAhDkmTAlTxHFbcIhaozXCqKW7GpZI7PVLrA20lMWAlOPMuO9PvWBEbSGn+Ag3QRETtwZ VjYA4GPuxH4Vfhshb1Jd1vlK2BlQKtaYMnQIxdy0LAmWVSdzoOSswjedid4OyPpxpUP9c858/arBW7nn I0yomEKb5k3nNcSIq+Z2EI0TKdJPag23/FUWSllCL/ v/41SrQYTMUf/qBybENdR8x/LBUYu3qnmHkR4TmSrQM87XmkMiqemiQ0jstcTQjxfJeVBILKf72Vi9cy tD+fLA/L09jjutpHA9L87T2kyMCIHzxSk96+In4dsHaOzDrXBdbGeSD7Hk74FI1KElOOi+YWj5Df2V5P 81LCic85mEGGHhXaqn+LaqkTmXk+muPMv6IejAEnQ9 0lH8hPAugDRvkpeicUEPCxzRV8ouqCGo7Gm4vQgcwcVHtcSp61p+VFQXoqLHZH5OhQ58Lh0M8a3MlgQ9 Vho73iKkE43Bm1VJ7WWvMpnmbWa072PzHd7loBLyxaP2HcqGanOVqs0Qic7PZHeDXWe3QovVkqztlu7l ljjsNjlUTexZuwEJ/t424TImoy/MjRzhtLT8523o4Z 3ha1VcyyJ+Wgp4gvoHS22D0t9GvTNtCO8RXlEAkRCKc7B1KpzeuMu9fttXx7+GRL0eElScS34Y4cNnGT RF0WiMLgucZzQ7XDIjNWFYza3KzofNrlxxvGj1BU0FlqaEq81T5vGhOUCRhoEcerWX+e/DAY+FI03De5R [file] ICAgICAgICAgICAgICAgICAgICAgICAgICAgICAgIC AgICAgICAgICAgICAgICAgICAgICAgICAgICAgICAgICAgICANCiAgICAgICAgICAgICAgICAgICAgIC AgICAgICAgICAgICAgICAgICAgICAgICAgICAgICAgICAgICAgICAgICAgICAgICAgICAgICAgICAgIC AgICAgICAgICAgICAgICAgICANCiAgICAgICAgICAg ICAgICAgICAgICAgICAgICAgICAgICAgICAgICAgICAgICAgICAgICAgICAgICAgICAgICAgICAgICAg ICAgICAgICAgICAgICAgICAgICAgICAgICAgICANCiAgICAgICAgICAgICAgICAgICAgICAgICAgICAg ICAgICAgICAgICAgICAgICAgICAgICAgICAgICAgIC AgICAgICAgICAgICAgICAgICAgICAgICAgICAgICAgICAgICAgICANCiAgICAgICAgICAgICAgICAgIC AgICAgICAgICAgICAgICAgICAgICAgICAgICAgICAgICAgICAgICAgICAgICAgICAgICAgICAgICAgIC AgICAgICAgICAgICAgICAgICAgICANCiAgICAgICAg ICAgICAgICAgICAgICAgICAgICAgICAgICAgICAgICAgICAgICAgICAgICAgICAgICAgICAgICAgICAg ICAgICAgICAgICAgICAgICAgICAgICAgICAgICAgICANCiAgICAgICAgICAgICAgICAgICAgICAgICAg ICAgICAgICAgICAgICAgICAgICAgICAgICAgICAgIC AgICAgICAgICAgICAgICAgICAgICAgICAgICAgICAgICAgICAgICAgICANCiAgICAgICAgICAgICAgIC AgICAgICAgICAgICAgICAgICAgICAgICAgICAgICAgICAgICAgICAgICAgICAgICAgICAgICAgICAgIC AgICAgICAgICAgICAgICAgICAgICAgICANCiAgICAg ICAgICAgICAgICAgICAgICAgICAgICAgICAgICAgICAgICAgICAgICAgICAgICAgICAgICAgICAgICAg ICAgICAgICAgICAgICAgICAgICAgICAgICAgICAgICAgICANCiAgICAgICAgICAgICAgICAgICAgICAg ICAgICAgICAgICAgICAgICAgICAgICAgICAgICAgIC AgICAgICAgICAgICAgICAgICAgICAgICAgICAgICAgICAgICAgICAgICAgICANCjw/bCLaH1bcyPGwqe E7O2ehJr5VJm7MCB2pr8PcOUMsHSgwhkMlNqaEWwUaOBFhPfgLAfm1WMjmOA8AhMTgC6WbN9OqEXfcJI 4HIRIlMJSwvXWnRFDpXEWxRqU5WOLbQHmhSV4JwMRf GYuoYJCvTUVaEG1BHGHcR838uoDoYI1NFe8KVkObVT4paz8VXUhcQCFtKuyVHpp8THkeSR5IgAGboBJh TGZeTRSPMiDyW8rtb1AaOdKeEPPNIBveGU8Vn7PiyLRlHHg+Ru6TYC3yp4LqAAioXKKqMM2wds0LSTlW NrSpT5RlkSfbJSDfb4wmEFEsUS1kjMHeIWQ3MMcmi4 MsXFYkP4T9wtcjzgnyCOFlHMKyNZ4qFw2vZJZkIQVeTbAuOJDNMX5IBBEaSAXniTHxFPWxFCSLEZ2ATP noKFQ6URFjuyPnkYMvBMjpGN4UPXYcndRbXZnuCTOWOLd+Fr8BVT8af4WjDDhsPKSeNC6pyu0RCIrNIr CxB6D2mGOlS6X8VEtnFp6ABKGaUIMlQCbgLGMBAIdp FI1UJZ1bvxM9CC0PvSOpMNSzURVbwEEtOLb4D47vhOAvWFtrSK7QKSU+Savannah+Op2RWKAoHPWsDHUyQhZv IBTFNyEhC0PgX3OEr6AuK4TnFU83xUmopbYuJUacUB4QJE0eUAVlWFBPOS3VcGDkbW0ngsPpJSPnOQEB ZjGzH15kxLKzNITtBAO8OYSuOn1VFOXjA4DnseOvwB qcslMbETWmYYJYLU6BONzogvEkqTEwoYocLC66vKkrWW8SId9MQzUbER9hyu8NtUMwDi9PZBWkOi5IBE YoTKRcZAFyVIK1NRZeCkSyMXhcMIPcPNJpAGO1WGIjJHRaQW6GSjGxYQZeAkM7DKZfWLRfSPDtoh1EAC UqBMByMeC7MRFzQCFyTHRlNKkpGRCyBUIzRUF5OVXj GEKsED2EZeAwETGfZDB6UHDuDFWsELZvbp8GIVCzNTRcDzo0KUTlUBKlPSXzKXqyNSMnEFFqUfK0GDEf UZOfEU4NYtLeFXJpHMB5WFBtJBVeZRAkaj9RPYWsISYjQOJxLFZkRTErCCYhLBwmMIYhWJT3GEuiJQOo XMYeLB5ZZaMqFZWjEHJcUMNjFJPcEPQqlb6ZWMLwKG GeUAK4AzJdKCMcVTEnLThyWEJnYFR8UTlwDIIaUPZxDZ9WGoCuWIRrUwz8OGQdWFXnEBOote9IUDSdAQ LfXFv9JDCwGFYeDTRcKMjuBJNuVPZsGFjxPZJyMAHuYG3DLqWfQNXyCoF9SDslTCDuOVMobs7RPDYsNK StIWZpADEoYTIbJRCpHYnuBIHrOTDwZPC7UVEtOHHx DO9PIoRlBCRdGmK9RxbgJEIyEWQpbg0ZEVBfQGHpJhO0AFJhLFMsTHSpCWq3biFuzALnJHk5NS7XA0Rq imRwHuAGDf4Yr894YQMjNPWpRx2WJ1xeHo6zQMWdZGVEMz6HNEo9VNO4THm5DXTeIWOnUHAeHAYxQNP2 SGW5UEjiHPA6MUU+BEdrGuP0TJL0I0B8NZJcUEUlTL F4EwEiGHa0WFWgCEQ6CY5vNRFQNy5+KAiwkRRkrYewTHVTAvPkQBYeCGecQIEINo6A ID Date Data Source ERYTHROCYTE SEDIMENTATION RATE 01/18/2020 12:00:00 AM EDT eC W1 ([facility]) Name Value Range Interpretation Code Description Data [employer] rce(s) Supporting Document(s) 26 0-20 ERYTHROCYTE SEDIMENTATION RATE eCW1 ([facility]) ID Date Data Source C REACTIVE PROTEIN QUANTITATIV (At [facility]) 01/18/2020 12:00 :00 AM EDT eCW1 ([facility]) Name Value Range Interpretation Code Description Data [employer] rce(s) Supporting Document(s) < 0.30 0.00-0.30 C REACTIVE PROTEIN QUANTI TATIV eCW1 ([facility]) ID Date Data Source [id number] 11/16/2019 03:00:37 PM [facility] Name Value Range Interpretation Code Description Data [employer] rce(s) Supporting Document(s) Progress Note [facility] HMVDAm1bDbBBEdSe97/NXQwwFKRss5AyGBsxSNq9WPclGSLmR4EbHKY0aH3qQWJ4RDjXBiKiWgEkENQ5 lbm [file] NEwcGEQsEiP8ABVmTTsjKrAsDO6SOn9KCoW5XBY0cBIjKt4CWcDlBySZFsLuBE3OFMy= ID Date Data Source [id number] 11/02/2019 02:40:27 PM EST [facility] Name Value Range Interpretation Code Description Data [employer] rce(s) Supporting Document(s) Discharge Summary [facility] QZJFRc6bUqGDKxRt91/ATKrfCVKhc0BtKUwfOTf9SXdqCVCxA5EeVDI2fK6uZDV5SYyZHqXsBcSnNAKb lbm [file] ICAgICAgICAgICAgICAgICAgICAgICAgICAgICAgICAgICAgICAgICAgICAgICAgICAgICAgICAgICAg ICAgICAgICAgICAgICAgICAgICAgICAgICAgICAgIC AgICAgICAgDQogICAgICAgICAgICAgICAgICAgICAgICAgICAgICAgICAgICAgICAgICAgICAgICAgIC AgICAgICAgICAgICAgICAgICAgICAgICAgICAgICAgICAgICAgICAgICAgICAgICAgDQogICAgICAgIC AgICAgICAgICAgICAgICAgICAgICAgICAgICAgICAg ICAgICAgICAgICAgICAgICAgICAgICAgICAgICAgICAgICAgICAgICAgICAgICAgICAgICAgICAgICAg DQogICAgICAgICAgICAgICAgICAgICAgICAgICAgICAgICAgICAgICAgICAgICAgICAgICAgICAgICAg ICAgICAgICAgICAgICAgICAgICAgICAgICAgICAgIC AgICAgICAgICAgDQogICAgICAgICAgICAgICAgICAgICAgICAgICAgICAgICAgICAgICAgICAgICAgIC AgICAgICAgICAgICAgICAgICAgICAgICAgICAgICAgICAgICAgICAgICAgICAgICAgICAgDQogICAgIC AgICAgICAgICAgICAgICAgICAgICAgICAgICAgICAg ICAgICAgICAgICAgICAgICAgICAgICAgICAgICAgICAgICAgICAgICAgICAgICAgICAgICAgICAgICAg ICAgDQogICAgICAgICAgICAgICAgICAgICAgICAgICAgICAgICAgICAgICAgICAgICAgICAgICAgICAg ICAgICAgICAgICAgICAgICAgICAgICAgICAgICAgIC AgICAgICAgICAgICAgDQogICAgICAgICAgICAgICAgICAgICAgICAgICAgICAgICAgICAgICAgICAgIC AgICAgICAgICAgICAgICAgICAgICAgICAgICAgICAgICAgICAgICAgICAgICAgICAgICAgICAgDQogIC AgICAgICAgICAgICAgICAgICAgICAgICAgICAgICAg ICAgICAgICAgICAgICAgICAgICAgICAgICAgICAgICAgICAgICAgICAgICAgICAgICAgICAgICAgICAg ICAgICAgDQogICAgICAgICAgICAgICAgICAgICAgICAgICAgICAgICAgICAgICAgICAgICAgICAgICAg ICAgICAgICAgICAgICAgICAgICAgICAgICAgICAgIC TdSMVvVJXoVBFdZQUdAMZhKEv4Z8soHJZyMXVsSX4mADy2Vz1+MReISmIdRAT4gvVbiJ7CFX9zq5PhWB fjSRNxh3VoMPb5FC3BBMDxVBrqZA6CPEhpad2RJGRmSQQucMXKt0skRsQbTMJ4JDFzZzxqMV9XUWTnL0 lkcyBbIDUgMCBSIDcgMCBSIDkgMCBSIDExIDAgUiAx FzNvXFOwIJKjISANNVT8ITQzWhHzXXapRF6Cb9RwmYU6TIt+Dq7XIK0gw9NsTZp7KeZdBC8czz0TJFfF GbEpC1MlskR5ZQKkOTBuMl0XUSFzHWRseRD4XlVuXWFHOkLkC9SwvV08ONEYPp6+DQplbmRvYmoNCjQz EAMgc3GqXBv6SK0ACVPpXVg1qAErHXugY6xwlwfbWZ K4lS4wucwtRrpwLEHcGKcaRSDAp6qmxGifOLCwVQAzUX6fSm3vJFSzATJrNwYfOPFRIC6TTDIyZKGsbA XdWWCeLJJZYW2OCLnhXYO9TDSmmcBctMYjLEadRP7UWVMtegSwOVGkJSAUBYs+Yh4DDA8ua2NsUDr9EW AtUW6mzt8SGSdMRoHnI7G5bMZbI1H2NRjkTw7GTINj EJPpJSKuMEODHGnpEP4JVC6wahV1XI2SbKBeUOBjPCNzfFZpCTb4Y76beGYdKXnuBQ4FXCO+Savannah+Pg0K NDXwMHPhCKRrZzYpYIEWGbGdZ5QhE2WRv9NpY2JfFW56xVsdiuApOJexMN4BUQ9hXUEmLLTXPL3OkLUr vS1aznA8AyPnGPHZRaQgO17hkHKkQOAxFEWdHQOcJa 3QRKFkT9FjkvCqqSlwxbGkGOJhPBGESQ8LBHafjqPprCNhtCobCP17oUrjWD2PVj9CQgWhTO9vvk7UgO EcLo2HMHD5EV7PKWFrQWKyMLPxPCW4EORsInXaHCurYBCoVVKwEXZ1MTEiEFJdEM4IKdGnIVIiKWG2UW PeKFItPRGpwh0DELRhVLB2TZU7UtYkQXVjOCRnYOwf AGAtWWUfNXE6JUIjHGYyJC7GAxCvBYRzTDR9IYSsPIYwGKElhb3KHSZjWVTlXgF5XTMzZVCcAOFvXCre QBKgXCS9QRr9MJRzPISdDG0QSbYsSQXkVAXlAOCaTLDeHLAfbi8WSNDeUCPbMAI3QxUbCELuLZSbBOxh IOZcRLM4RqS5BEUcRGHmYF2BCrApIBAcPIL6TKJgGB BlNSMpoc1IOFUhMIUgQegoJFLrAOMdXGXhIPlxOHSkHKF2MCU1MQVtZQFxJK8IPxLnRKJjDQmgEODjDX McXQYpeo3EHIShPOYlHTKyNtVaKERdRMQqUExmEBUcPFH6AdIyKRIaSFEnAS4VOzIgDTAeEeWpXIgdOJ QqIBZtwr6SIQHvYMFrNJR5SFCdVWYxLCVsQAilABKe SFZwDDF9OITfUHIpEO9DYlEiZUTzUuK5YmMkRSFjVTAbxj2PMCVjRPCiCUhyZEYeAEMoXPTaJYyqFLTo NJEfRkI5FMYkIJYdJR3BBeWxDQHzLyH7KmKsOSVwRTPhde1HXPHuGOTaIsB2FUYxUNEfJWEvLEiyEFMv IRF0AHE6HRFeTXVuLR5SPrKuWDZcOmUzLKIpQSGpEM Zwdh1SPWRzDDWwTEZ7XZKbPJKjXXLbSGzbGBNxHKW8COr3PMFvKOSkIO8PYtGdTQBxWfPiNEdiGQVjMO Tdsx6CVVVxQIJzHiYnCjGpZLTeVUJlLBjqNCPrXCY7RpK3OOWdFLIhTN0VSfYkZVVlRiS3DWHqHPTgUW Uzgi9DNZEfYQOaBhlnFXPoWHUuPIWdBOnsDTEtAAI2 JETdTNBjEBOgJG8JKiYwGXKiZlwlLGMhIJFiMKDanz9PBCIpBYB5Twd7SeQbZPUaOGUfIQjbGYIdMNIh Rbu0LAHgVDYsEC7KLnFcYVSqLNG9KIThMEMqQRYqqx2XWSOnDTF4FaskIvEqRXSpFAFoZAgrCLWaWQGa ICytFNNqRQCcGD9SAtKwJBZdRPNqQiTvKWYgNEKdnc 6BCLSdUED2CXfaZNCdEVMcZORlUJpvRUQpVMR0ZVydACKyDZVdRW2BArYyDUVcKFNiXkTxOCRlZCJdmq 4YrGOszFfess0HQJqXJo7RbChzQWO9JBcvMm3gbVI8JJWrLISJDx0GxrJaBYBsXILAOVdqNKCyYCY9ZF YwBgjtWqK2BOXbL5R5NeJ0RFHkLvWiYGEeEtedIyX5 Eqi4UsViMAPlFaO3ZUE4WkUfWCLsN9HkUDAoBEH5HBV+ET5zGOr+Jg9Vm0WihfB0pwBuLLz7EnN3Ki5M UBBDA0NOGq== ID Date Data Source [id number] 11/02/2019 11:58:32 AM [facility] Name Value Range Interpretation Code Description Data [employer] rce(s) Supporting Document(s) Glucose [Mass/volume] in Capillary blood by Glucometer 123 mg/dL 70- 140 [facility] ID Date Data Source [id number] 11/02/2019 10:00:29 AM [facility] Name Value Range Interpretation Code Description Data [employer] rce(s) Supporting Document(s) Bicarbonate [Moles/volume] in Serum 28 mmol/L 22-29 [facility] Chloride [Moles/volume] in Serum or Plasma 100 mmol/L 98-107 [facility] Creatinine [Mass/volume] in Serum or Plasma 0.61 mg/dL 0.50-0.90 [facility] Glucose [Mass/volume] in Serum or Plasma 130 mg/dL 70-140 [facility] Potassium [Moles/volume] in Serum or Plasma 4.9 mmol/L 3.4-5.1 [facility] Sodium [Moles/volume] in Serum or Plasma 136 mmol/L 136-145 [facility] Urea nitrogen [Mass/volume] in Serum or Plasma 16 mg/dL 6-20 [facility] Anion gap 3 in Serum or Plasma 8 mmol/L 8-15 [facility] Osmolality of Serum or Plasma by calculation 285 mosm/kg 275-300 [facility] Creatinine/Urea nitrogen [Mass Ratio] in Serum or Plasma 26 [facility] Calcium [Mass/volume] in Serum or Plasma 9.4 mg/dL 8.6-10.0 [facility] Glomerular filtration rate/1.73 sq M pre dicted among non-blacks [Volume Rate/Area] in Serum or Plasma by Creatinine-based formula (MDRD) >6 0 [facility] Glomerular filtration rate/1.73 sq M pre dicted among blacks [Volume Rate/Area] in Serum or Plasma by Creatinine-based formula (MDRD) >60 [facility] ID Date Data Source [id number] 11/02/2019 07:44:21 AM [facility] Name Value Range Interpretation Code Description Data [employer] rce(s) Supporting Document(s) Glucose [Mass/volume] in Capillary blood by Glucometer 129 mg/dL 70- 140 [facility] ID Date Data Source [id number] 11/02/2019 06:08:59 AM [facility] Name Value Range Interpretation Code Description Data [employer] rce(s) Supporting Document(s) Bicarbonate [Moles/volume] in Serum 29 mmol/L 22-29 [facility] Chloride [Moles/volume] in Serum or Plasma 100 mmol/L 98-107 [facility] Creatinine [Mass/volume] in Serum or Plasma 0.52 mg/dL 0.50-0.90 [facility] Glucose [Mass/volume] in Serum or Plasma 81 mg/dL 70-140 [facility] Potassium [Moles/volume] in Serum or Plasma 5.8 mmol/L 3.4-5.1 H [facility] Sodium [Moles/volume] in Serum or Plasma 136 mmol/L 136-145 [facility] Urea nitrogen [Mass/volume] in Serum or Plasma 16 mg/dL 6-20 [facility] Confirmed Anion gap 3 in Serum or Plasma 7 mmol/L 8-15 L [facility] Osmolality of Serum or Plasma by calculation 282 mosm/kg 275-300 [facility] Creatinine/Urea nitrogen [Mass Ratio] in Serum or Plasma 31 [facility] Calcium [Mass/volume] in Serum or Plasma 9.1 mg/dL 8.6-10.0 [facility] Glomerular filtration rate/1.73 sq M pre dicted among non-blacks [Volume Rate/Area] in Serum or Plasma by Creatinine-based formula (MDRD) >6 0 [facility] Glomerular filtration rate/1.73 sq M pre dicted among blacks [Volume Rate/Area] in Serum or Plasma by Creatinine-based formula (MDRD) >60 [facility] ID Date Data Source [id number] 11/02/2019 06:08:59 AM [facility] Name Value Range Interpretation Code Description Data [employer] rce(s) Supporting Document(s) Magnesium [Mass/volume] in Serum or Plasma 2.1 mg/dL 1.6-2.6 [facility] ID Date Data Source [id number] 11/02/2019 06:08:59 AM [facility] Name Value Range Interpretation Code Description Data [employer] rce(s) Supporting Document(s) Phosphate [Mass/volume] in Serum or Plasma 2.6 mg/dL 2.5-4.5 [facility] ID Date Data Source [id number] 11/02/2019 06:29:20 AM [facility] Name Value Range Interpretation Code Description Data [employer] rce(s) Supporting Document(s) Leukocytes [#/volume] in Blood by Automated count 7.7 10*3/uL 4-10 [facility] Erythrocytes [#/volume] in Blood by Automated count 4.35 10*6/uL 4.1- 5.3 [facility] Hemoglobin [Mass/volume] in Blood 10.6 g/dL 11.5-15.5 [facility] Hematocrit [Volume Fraction] of Blood by Automated count 32.4 % 3 6-45 L [facility] Erythrocyte mean corpuscular volume [Entitic volume] by Auto mated count 74.6 fL 80-96 L [facility] Erythrocyte mean corpuscular hemoglobin [Entitic mass] by Automated count 24.3 pg 27-33 [facility] Erythrocyte mean corpuscular hemoglobin concentration [Mass/volume] by Automated count 32.6 g/dL 32.0-36.0 [facility] width [Ratio] by Automated count 18.6 % 11.5-14.5 [facility] Platelets [#/volume] in Blood by Automated count 279 10*3/uL 150-400 [facility] Differential cell count method - Blood [facility] Neutrophils/100 leukocytes in Blood by Automated count 46 % [facility] Lymphocytes/100 leukocytes in Blood by Automated count 39 % [facility] Monocytes/100 leukocytes in Blood by Automated count 8 % [facility] Eosinophils/100 leukocytes in Blood by Automated count 7 % [facility] Neutrophils [#/volume] in Blood by Automated count 3.54 10*3/uL 1.8-7 .0 [facility] Lymphocytes [#/volume] in Blood by Automated count 3.00 10*3/uL 1.2-4 .0 [facility] Monocytes [#/volume] in Blood by Automated count 0.62 10*3/uL 0-0.8 [facility] Eosinophils [#/volume] in Blood by Automated count 0.54 10*3/uL 0-0.5 [facility] Nucleated erythrocytes/100 leukocytes [Ratio] in Blood by Automated count 1 /100{WBCs} 0-0 H [facility] Anisocytosis [Presence] in Blood by Light microscopy [facility] Poikilocytosis [Presence] in Blood by Light microscopy [facility] ID Date Data Source [id number] 11/02/2019 04:36:13 AM [facility] Value Range Interpretation Code Description Data [employer] rce(s) Supporting Document(s) Glucose [Mass/volume] in Capillary blood by Glucometer 117 mg/dL 70- 140 [facility] ID Date Data Source [id number] 11/01/2019 11:58:04 PM [facility] Value Range Interpretation Code Description Data [employer] rce(s) Supporting Document(s) Glucose [Mass/volume] in Capillary blood by Glucometer 123 mg/dL 70- 140 [facility] ID Date Data Source [id number] 11/01/2019 08:10:55 PM [facility] Value Range Interpretation Code Description Data [employer] rce(s) Supporting Document(s) Glucose [Mass/volume] in Capillary blood by Glucometer 141 mg/dL 70- 140 [facility] ID Date Data Source [id number] 11/01/2019 04:25:12 PM [facility] Value Range Interpretation Code Description Data [employer] rce(s) Supporting Document(s) Glucose [Mass/volume] in Capillary blood by Glucometer 124 mg/dL 70- 140 [facility] ID Date Data Source [id number] 11/01/2019 12:02:21 PM [facility] Value Range Interpretation Code Description Data [employer] rce(s) Supporting Document(s) Glucose [Mass/volume] in Capillary blood by Glucometer 134 mg/dL 70- 140 [facility] ID Date Data Source [id number] 11/01/2019 08:07:10 AM [facility] Value Range Interpretation Code Description Data [employer] rce(s) Supporting Document(s) Glucose [Mass/volume] in Capillary blood by Glucometer 115 mg/dL 70- 140 [facility] ID Date Data Source [id number] 11/01/2019 03:56:12 AM [facility] Value Range Interpretation Code Description Data [employer] rce(s) Supporting Document(s) Glucose [Mass/volume] in Capillary blood by Glucometer 99 mg/dL 70- 140 [facility] ID Date Data Source [id number] 11/01/2019 05:23:25 AM [facility] Name Value Range Interpretation Code Description Data [employer] rce(s) Supporting Document(s) Leukocytes [#/volume] in Blood by Automated count 3.5 10*3/uL 4-10 L [facility] Erythrocytes [#/volume] in Blood by Automated count 3.84 10*6/uL 4.1- 5.3 L [facility] Hemoglobin [Mass/volume] in Blood 9.1 g/dL 11.5-15.5 [facility] Hematocrit [Volume Fraction] of Blood by Automated count 28.6 % 3 6-45 L [facility] Erythrocyte mean corpuscular volume [Entitic volume] by Auto mated count 74.6 fL 80-96 L [facility] Erythrocyte mean corpuscular hemoglobin [Entitic mass] by Automated count 23.7 pg 27-33 [facility] Erythrocyte mean corpuscular hemoglobin concentration [Mass/volume] by Automated count 31.8 g/dL 32.0-36.0 [facility] distribution width [Ratio] by Automated count 18.6 % 11.5-14.5 H [facility] Platelets [#/volume] in Blood by Automated count 212 10*3/uL 150-400 [facility] Differential cell count method - Blood [facility] Neutrophils/100 leukocytes in Blood by Automated count 43 % [facility] Lymphocytes/100 leukocytes in Blood by Automated count 36 % [facility] Monocytes/100 leukocytes in Blood by Automated count 9 % [facility] Eosinophils/100 leukocytes in Blood by Automated count 11 % [facility] Basophils/100 leukocytes in Blood by Automated count 1 % [facility] Neutrophils [#/volume] in Blood by Automated count 1.53 10*3/uL 1.8-7 .0 [facility] Lymphocytes [#/volume] in Blood by Automated count 1.24 10*3/uL 1.2-4 .0 [facility] Monocytes [#/volume] in Blood by Automated count 0.31 10*3/uL 0-0.8 [facility] Eosinophils [#/volume] in Blood by Automated count 0.38 10*3/uL 0-0.5 [facility] Basophils [#/volume] in Blood by Automated count 0.03 10*3/uL 0-0.2 [facility] Nucleated erythrocytes/100 leukocytes [Ratio] in Blood by Automated count 0 /100{WBCs} 0-0 [facility] ID Date Data Source [id number] 11/01/2019 05:32:43 AM [facility] Value Range Interpretation Code Description Data [employer] rce(s) Supporting Document(s) Bicarbonate [Moles/volume] in Serum 31 mmol/L 22-29 H [facility] Chloride [Moles/volume] in Serum or Plasma 100 mmol/L 98-107 [facility] Creatinine [Mass/volume] in Serum or Plasma 0.50 mg/dL 0.50-0.90 [facility] Glucose [Mass/volume] in Serum or Plasma 95 mg/dL 70-140 [facility] Potassium [Moles/volume] in Serum or Plasma 3.9 mmol/L 3.4-5.1 [facility] Sodium [Moles/volume] in Serum or Plasma 138 mmol/L 136-145 [facility] Urea nitrogen [Mass/volume] in Serum or Plasma 6 mg/dL 6-20 [facility] Anion gap 3 in Serum or Plasma 7 mmol/L 8-15 L [facility] Osmolality of Serum or Plasma by calculation 283 mosm/kg 275-300 [facility] Creatinine/Urea nitrogen [Mass Ratio] in Serum or Plasma 12 [facility] Calcium [Mass/volume] in Serum or Plasma 8.6 mg/dL 8.6-10.0 [facility] Glomerular filtration rate/1.73 sq M pre dicted among non-blacks [Volume Rate/Area] in Serum or Plasma by Creatinine-based formula (MDRD) >6 0 [facility] Glomerular filtration rate/1.73 sq M pre dicted among blacks [Volume Rate/Area] in Serum or Plasma by Creatinine-based formula (MDRD) >60 [facility] ID Date Data Source [id number] 11/01/2019 05:32:43 AM [facility] Value Range Interpretation Code Description Data [employer] rce(s) Supporting Document(s) Magnesium [Mass/volume] in Serum or Plasma 2.1 mg/dL 1.6-2.6 [facility] ID Date Data Source [id number] 11/01/2019 05:32:43 AM [facility] Value Range Interpretation Code Description Data [employer] rce(s) Supporting Document(s) Phosphate [Mass/volume] in Serum or Plasma 4.1 mg/dL 2.5-4.5 [facility] ID Date Data Source [id number] 10/31/2019 10:35:09 PM [facility] Value Range Interpretation Code Description Data [employer] rce(s) Supporting Document(s) Glucose [Mass/volume] in Capillary blood by Glucometer 115 mg/dL 70- 140 [facility] ID Date Data Source [id number] 10/31/2019 04:22:31 PM [facility] Value Range Interpretation Code Description Data [employer] rce(s) Supporting Document(s) Glucose [Mass/volume] in Capillary blood by Glucometer 131 mg/dL 70- 140 [facility] ID Date Data Source [id number] 10/31/2019 11:33:00 AM [facility] Value Range Interpretation Code Description Data [employer] rce(s) Supporting Document(s) Glucose [Mass/volume] in Capillary blood by Glucometer 110 mg/dL 70- 140 [facility] ID Date Data Source [id number] 10/31/2019 08:07:18 AM [facility] Value Range Interpretation Code Description Data [employer] rce(s) Supporting Document(s) Glucose [Mass/volume] in Capillary blood by Glucometer 115 mg/dL 70- 140 [facility] ID Date Data Source [id number] 10/31/2019 04:21:05 AM [facility] Value Range Interpretation Code Description Data [employer] rce(s) Supporting Document(s) Glucose [Mass/volume] in Capillary blood by Glucometer 92 mg/dL 70- 140 [facility] ID Date Data Source [id number] 10/31/2019 07:02:44 AM [facility] Value Range Interpretation Code Description Data [employer] rce(s) Supporting Document(s) Bicarbonate [Moles/volume] in Serum 29 mmol/L 22-29 [facility] Chloride [Moles/volume] in Serum or Plasma 102 mmol/L 98-107 [facility] Creatinine [Mass/volume] in Serum or Plasma 0.51 mg/dL 0.50-0.90 [facility] Glucose [Mass/volume] in Serum or Plasma 90 mg/dL 70-140 [facility] Potassium [Moles/volume] in Serum or Plasma 3.8 mmol/L 3.4-5.1 [facility] Sodium [Moles/volume] in Serum or Plasma 141 mmol/L 136-145 [facility] Urea nitrogen [Mass/volume] in Serum or Plasma 4 mg/dL 6-20 L [facility] Anion gap 3 in Serum or Plasma 10 mmol/L 8-15 [facility] Osmolality of Serum or Plasma by calculation 288 mosm/kg 275-300 [facility] Creatinine/Urea nitrogen [Mass Ratio] in Serum or Plasma 7 [facility] Calcium [Mass/volume] in Serum or Plasma 8.4 mg/dL 8.6-10.0 L [facility] Glomerular filtration rate/1.73 sq M pre dicted among non-blacks [Volume Rate/Area] in Serum or Plasma by Creatinine-based formula (MDRD) >6 0 [facility] Glomerular filtration rate/1.73 sq M pre dicted among blacks [Volume Rate/Area] in Serum or Plasma by Creatinine-based formula (MDRD) >60 [facility] ID Date Data Source [id number] 10/31/2019 07:02:44 AM [facility] Value Range Interpretation Code Description Data [employer] rce(s) Supporting Document(s) Magnesium [Mass/volume] in Serum or Plasma 2.0 mg/dL 1.6-2.6 [facility] ID Date Data Source [id number] 10/31/2019 07:02:44 AM [facility] Value Range Interpretation Code Description Data [employer] rce(s) Supporting Document(s) Phosphate [Mass/volume] in Serum or Plasma 4.2 mg/dL 2.5-4.5 [facility] ID Date Data Source [id number] 10/31/2019 06:23:16 AM [facility] Value Range Interpretation Code Description Data [employer] rce(s) Supporting Document(s) Calcium.ionized [Moles/volume] in Arterial blood 1.17 mmol/L 1.13-1.3 2 [facility] ID Date Data Source [id number] 10/30/2019 10:12:38 PM [facility] Value Range Interpretation Code Description Data [employer] rce(s) Supporting Document(s) Glucose [Mass/volume] in Capillary blood by Glucometer 104 mg/dL 70- 140 [facility] ID Date Data Source [id number] 10/30/2019 06:54:25 PM [facility] Name Value Range Interpretation Code Description Data Sumaya rce(s) Supporting Document(s) Glucose [Mass/volume] in Capillary blood by Glucometer 110 mg/dL 70- 140 [facility] ID Date Data Source [id number] 10/30/2019 02:33:27 PM [facility] FLUORO UPPER GI SERIESFINAL RESULTInterp reted by:Graciela Hickey MDUPPER GI SERIES. INDICATION: Patient has history of Nadege-en-Y gastric bypass with revision and left abdominal pain. Patient reports regurgitation of solid food and pain during tube feedings.TECHNIQUE: An initial supine review specialist image of the abdomen was obtained. Single contrast upper GI series was performed. The patient swallowed barium under fluoroscopic observation. Multiple spot images of the esophagus, stomach and duodenum were obtained. COMPARISON: CT abdomen pelvis from 10/28/2019FINDINGS: The review specialist image shows fusion rods and pedicle screws are overlapping L3-S1. Surgical clips are scattered throughout the central abdomen. Suture material overlaps the left upper quadrant. Cardiac leads overlap the left lower lung. Scattered air is noted in nondilated bowel loops. Heterogeneous material overlaps the stomach. Swallowing was normal. Contrast flows freely through the distal esophagus. No filling defects, diverticula, strictures or ulcers were noted in the esophagus. No hiatal hernia or tertiary contractions were seen. Mild gastroesophageal reflux is seen.There is a pouchlike configuration of the proximal stomach consistent with history of prior surgical revision of the gastric pouch. Contrast flows freely into the gastric pouch, gastric fundus, body, antrum and pylorus without difficulty. There is a large amount of mobile heterogeneous filling defect throughout the stomach. No thickened gastric folds were identified. Normal gastric emptying of thin liquids was observed. The duodenum is nondilated. The second portion of the duodenum demonstrates relatively decreased caliber compared to the remainder of the duodenum with associated fold thickening. No duodenal mass is seen.The total fluoroscopic time was 1.5 minute. The total fluoroscopic dose was 14.20 k,ar. IMPRESSION:1. Large amount of mobile heterogeneous filling defect throughout the stomach. Most likely related to retained ingested solid material. 2. Normal gastric emptying of thin liquids. Presence of retained material in the stomach suggests delayed gastric emptying or gastric outlet obstruction for solids.3. Second portion of the duodenum demonstrates relatively decreased caliber compared to the remainder of the duodenum with associated fold thickening. This is nonspecific but is worrisome for infectious or inflammatory duodenitis.4. Of note when reviewing the prior CT abdomen pelvis for comparison, there is inflammatory stranding within the subcutaneous tissues surrounding the percutaneous jejunal tube. Given the patient's complaints of pain during injection of the J-tube, correlate clinically for signs of infection or leakage of the jejunal tube.This document has been electronically signed by Graciela Hickey MD on 10/30/2019 2:31 PM Name Value Range Interpretation Code Description Data [facility] rce(s) Supporting Document(s) ID Date Data Source [id number] 10/30/2019 01:09:29 PM [facility] Name Value Range Interpretation Code Description Data [facility] rce(s) Supporting Document(s) Bicarbonate [Moles/volume] in Serum 28 mmol/L 22-29 [facility] Chloride [Moles/volume] in Serum or Plasma 104 mmol/L 98-107 [facility] Creatinine [Mass/volume] in Serum or Plasma 0.56 mg/dL 0.50-0.90 [facility] Glucose [Mass/volume] in Serum or Plasma 91 mg/dL 70-140 [facility] Potassium [Moles/volume] in Serum or Plasma 3.7 mmol/L 3.4-5.1 [facility] Sodium [Moles/volume] in Serum or Plasma 140 mmol/L 136-145 [facility] Urea nitrogen [Mass/volume] in Serum or Plasma 2 mg/dL 6-20 L [facility] Anion gap 3 in Serum or Plasma 8 mmol/L 8-15 [facility] Osmolality of Serum or Plasma by calculation 286 mosm/kg 275-300 [facility] Creatinine/Urea nitrogen [Mass Ratio] in Serum or Plasma 4 [facility] Calcium [Mass/volume] in Serum or Plasma 8.3 mg/dL 8.6-10.0 [facility] Glomerular filtration rate/1.73 sq M pre dicted among non-blacks [Volume Rate/Area] in Serum or Plasma by Creatinine-based formula (MDRD) >6 0 [facility] Glomerular filtration rate/1.73 sq M pre dicted among blacks [Volume Rate/Area] in Serum or Plasma by Creatinine-based formula (MDRD) >60 [facility] ID Date Data Source [id number] 10/30/2019 01:09:29 PM [facility] Name Value Range Interpretation Code Description Data [facility] rce(s) Supporting Document(s) Magnesium [Mass/volume] in Serum or Plasma 1.9 mg/dL 1.6-2.6 [facility] ID Date Data Source [id number] 10/30/2019 01:09:29 PM [facility] Name Value Range Interpretation Code Description Data [facility] rce(s) Supporting Document(s) Phosphate [Mass/volume] in Serum or Plasma 3.5 mg/dL 2.5-4.5 [facility] ID Date Data Source [id number] 10/30/2019 01:09:29 PM [facility] Name Value Range Interpretation Code Description Data [facility] rce(s) Supporting Document(s) Triglyceride [Mass/volume] in Serum or Plasma 138 mg/dL <150 [facility] ID Date Data Source [id number] 10/27/2019 11:19:00 AM [facility] 1 OrderSheet [facility] Emergency Department [address] [place] [address] Phone #: ext- [phone] 10/27/2019 11:08 Patient: NI DIAZ Sex: F : 1980 Age: 39yWEIGHT:65.7 kg (S) HEIGHT:67 inches (S) BMI:22.7ALLERGIES: Levaquin, Sulfa Antibiotics, traZODone HClCHIEF COMPLAINT: "not feeling well", feverDIAGNOSIS: Systemic infection, Urinary tract infectious disease, HypokalemiaLAB ORDERSOrder Description Priority Entered Acknowledged InitialedBlood Culture STAT 11:41 10/27/2019 11:42 camilo Renteria X2 (Reza SIMMONS; Audrey Sousa11:41 10/27/2019)Blood Culture STAT 11:41 10/27/2019 Ack'd: 12:17 13:11 Renteria,q10m X2 (Reza Sewellta PA; Audrey Renteria R.N. RGuanakito11:51 10/27/2019)CBC w Diff STAT 11:41 10/27/2019 11:42 Tawanda Renteria; Audrey Luna.CMP STAT 11:41 10/27/2019 11:42 Tawanda Renteria; Audrey RGuanakitoLactic Acid STAT 11:41 10/27/2019 11:42 Tawanda Renteria; Audrey RGuanakitoUrinalysis (Clean STAT 11:41 10/27/2019 Ack'd: 12:17 12:50 DexterCatch) Tawanda SIMMONS; Audrey Renteria R.N. Audrey R.Jorge.Lipase STAT 11:43 10/27/2019 12:14 Tawanda Renteria; Audrey SousaInfluenza Nasal A B STAT 11:53 10/27/2019 12:14 Tawanda Renteria; Audrey SousaCulture, Urine STAT 12:49 10/27/2019 13:11 Dexter,(Urine, Clean Tawanda SIMMONS; Audrey R.N.Catch) Reason for ordering with alerts: Clinical consideration given -- 12:49 10/27/2019 Tawanda Sol PACRP STAT 12:59 10/27/2019 13:11 Tawanda Renteria; Audrey SousaPT/PTT STAT 12:59 10/27/2019 13:11 Tawanda Renteria; Audrey SousaLactic Acid STAT 14:43 10/27/2019 14:44 Tawanda Renteria; Audrey R.NCarmelo NOTES: please redraw 2 OrderSheet [facility] Emergency Department [address] [place] [address] Phone #: ext- [phone] 10/27/2019 11:08 Patient: NI DIAZ Sex: F : 1980 Age: 39yDIAGNOSTIC STUDY ORDERSOrder Description Priority Entered Acknowledged InitialedChest Portable 1 STAT 12:49 10/27/2019 13:11 Dexter,View Tawanda SIMMONS; Audrey R.N.(Oxygen?(No)) Reason for Study: feverCT Abd PEL W/ IV STAT 12:53 10/27/2019 13:11 Dexter,Contrast Only Tawanda SIMMONS; Audrey R.N.(Oxygen?(No))(IV?(Yes)) Reason for Study: Nausea, fever, abd pain, hx of gastric bypass and reversalMEDICATION/IV/D RIP/FLUID ORDERSOrder Description Priority Entered Acknowledged InitialedNS IV 1000 mL 11:41 10/27/2019 12:13 Dexter,Bolus: : Bolus 1000 Tawanda Ventura R.N.mL (X1)NS IV : Bolus 1000 11:41 10/27/2019 12:18 Dexter,mL, then 100 mL/hr Tawanda VALENTIN Audrey R.N.(NOW x1)Benadryl Liquid PO 11:54 10/27/2019 Initialed: 12:13 Dexter Audrey R.N.12.5 mg (thru Tawanda SIMMONS; Refused: 12:13 Benadryl Liquid PO 12.5hickman) mg (thru galicia) was refused by patient because of can take it at home. Reason for ordering with alerts: Clinical consideration given -- 11:54 10/27/2019 Tawanda Sol PAAcetaminophen 11:54 10/27/2019 Initialed: 12:13 Dexter, Audrey R.N.Liquid PO 500 mg Tawanda SIMMONS; Refused: 12:13 Acetaminophen Liquid PO(thru galicia) 500 mg (thru galicia) was refused by patient because of can take at home. Reason for ordering with alerts: Clinical consideration given -- 11:54 10/27/2019 Tawanda Sol PAPotassium Chloride 12:37 10/27/2019 Ack'd: 12:40 13:08 DexterIVPB 10 Tawanda SIMMONS; Audrey Renteria R.N. Audrey R.N.meq/100mLAcetaminophen IV 12:48 10/27/2019 Ack'd: 12:50 13:10 Dexter,500 mg (NOW x1, Tawanda SIMMONS; Dexter, Audrey R.N. Audrey R.N.Infuse over 15minutes)Benadryl IVP 12.5 12:48 10/27/2019 Ack'd: 12:50 13:10 Dexter, 3 OrderSheet [facility] Emergency Department [address] [place] [address] Phone #: ext- [phone] 10/27/2019 11:08 Patient: NI DIAZ Sex: F : 1980 Age: 39ymg (NOW x1) Tawanda SIMMONS; Audrey Renteria R.N. Audrey R.N.Rocephin 12:49 10/27/2019 Ack'd: 12:51 13:11 Dexter,(1gm/50mL) IVPB Tawanda SIMMONS; Audrey Renteria R.N. Audrey R.N.1000 mg withDextrose 50 mlspike bag (D5W) Reason for ordering with alerts: Clinical consideration given -- 12:49 10/27/2019 Tawanda Sol PAMorphine IVP 2 mg 16:03 10/27/2019 16:09 Dexter,(NOW x1, keep o2 Tawanda SIMMONS; Audrey R.N.sat > 90%, HIGHALERTMEDICATION) Reason for ordering with alerts: Clinical consideration given -- 16:03 10/27/2019 Tawanda Sol PAZofran IVP 4 mg 16:03 10/27/2019 16:10 Tawanda Renteria; Audrey R.N. Reason for ordering with alerts: Clinical consideration given -- 16:03 10/27/2019 Tawanda Sol PAGENERAL ORDERSOrder Description Priority Entered Acknowledged InitialedCardiac Monitor 11:41 10/27/2019 11:42 Dexter(continuous) Tawanda Ventura R.N.Blood Pressure 11:41 10/27/2019 11:42 Dexter,Monitor Tawanda SIMMONS; Audrey R.N.EKG 11:41 10/27/2019 11:48 Julia SIMMONS; Shobha Lee ER [id number] 11:41 10/27/2019 11:42 Tawanda Renteria; Audrey SousaPulse Oximetry 11:41 10/27/2019 11:42 Dexter,Nataliia SIMMONS; Audrey SousaVitals 11:41 10/27/2019 11:42 Tawanda Renteria; Audrey SousaVitals every 15 11:41 10/27/2019 11:42 Dexter,minutes Tawanda SIMMONS; Audrey SousaWarm blanket 11:41 10/27/2019 11:42 Tawanda Renteria; Audrey SousaConsult - 15:14 10/27/2019 15:23 Dexter,Hospitalist Tawanda SIMMONS; Audrey SousaTransfer: 15:33 10/27/2019 15:39 Dexter, 4 OrderSheet [facility] Emergency Department [address] [place] [address] Phone #: ext- [phone] 10/27/2019 11:08 Patient: NI DIAZ Sex: F : 1980 Age: 39y Tawanda SIMMONS; Audrey Sousa[Electronically signed by Audrey Renteria R.N. (18:07 10/27/2019)][Electronically signed by Tawanda Sol (18:22 10/27/2019)][Electronically locked by Audrey Renteria R.N. (18:07 10/27/2019)] Name Value Range Interpretation Code Description Data [facility] rce(s) Supporting Document(s) ID Date Data Source [id number] 10/27/2019 11:19:00 AM EST [facility] 1 Medication Reconciliation Report [facility] Emergency Department [address] [place] [address] Phone #: ext- [phone] 10/27/2019 11:08 [id number] Sex[facility] F : 1980 Age: 39yWeight: 65.7 kgHeight/Length: 67 in.BMI: 22.7ALLERGIES: Levaquin, Sulfa Antibiotics, traZODone HClThe patient's Home Medications are listed below:THE FOLLOWING MEDICATIONS NEED TO BE RECONCILED: Ambien Oral 5 mg, daily, via J tube, prn,at bedtime Benadryl IV 50mg QDAY for nausea Carafate Oral 1 gm, q4h, via J tube Creon Oral (5756-5552 unit) 1 capsule, 4x a day, J tube Cytotec Oral unknown, daily, J tube FLUoxetine HCl Oral 20 mg, daily, via J tube Ondansetron HCl Injection 8 mg IVP, q8h, prn oxyCODONE HCl Oral 10 mg, 4x a day, via J tube, prn Protonix Intravenous (40 mg), 2x a day Tylenol Oral, prnThe source(s) of the original Home Medication informa tion:patientThe following Medications were given to the patient in the Emergency Department:NS [IV] IV Fluids bolus 0, then 1000 mL/hr, administered: 10/27/2019 12:13:00 PMNS [IV] IV Fluids bolus 0, then 1000 mL/hr, administered: 10/27/2019 12:18:00 PM 2 Medication Reconciliation Report [facility] Emergency Department [address] [place] [address] Phone #: ext- [phone] 10/27/2019 11:08 Patient: NI DIAZ Sex: F : 1980 Age: 39yPotassium Chloride [IVPB] IVPB bolus 0, then 10 meq 100 mL/hr, administered: 10/27/2019 1:08:00 PMtylenol Drip IV bolus 0, then 500mg, administered: 10/27/2019 1:10:00 PMBenadryl [IVP] IVP 12.5 mg, administered: 10/27/2019 1:10:00 PMROCEPHIN (1GM/50ML) [IVPB] IVPB bolus 0, then 1 gm 125 mL/hr, administered: 10/27/2019 1:11:00 PMMorphine [IVP] IVP 2 mg, administered: 10/27/2019 4:09:00 PMZofran [IVP] IVP 4 mg, administered: 10/27/2019 4:10:00 PMThe following Medications were prescribed to the patient:None. Name Value Range Interpretation Code Description Data [facility] rce(s) Supporting Document(s) ID Date Data Source [id number] 10/27/2019 11:19:00 AM EST [facility] 1 Medication Administration Record [facility] Emergency Department [address] [place] [address] Phone #: ext- [phone] 10/27/2019 11:08 Patient: NI DIAZ Sex: F : 1980 Age: 39yWeight: 65.7 kgHeight/Length: 67 inBMI: 22.7ALLERGIES: Levaquin, traZODone HCl, Sulfa Antibiotics Date/Time Medication Administered Medication OrderedStart NS [IV] NS IV 1000 mL Bolus: : Bolus 616449:13 10/27/2019 Dose: IV Fluids mL (X1)Audrey Renteria R.Enoch Rate: 1000 mL/hr over 1 hour(s)---- Dispensed: 1000 mL bagStop Site: #1 right wrist17:46 10/27/2019Audrey Renteria R.NCarmeloStart NS [IV] NS IV : Bolus 1000 mL, then 15440:18 10/27/2019 Dose: IV Fluids mL/hr (NOW x1)Audrey Renteria R.N. Rate: 1000 mL/hr over 1 hour(s)---- Dispensed: 1000 mL bagStop Site: #1 right wrist17:46 10/27/2019Audrey Renteria R.N.Start POTASSIUM CHLORIDE [IVPB] Potassium Chloride IVPB 1013:08 10/27/2019 Dose: 10 meq IVPB meq/100mLAudrey Renteria R.N. Rate: 100 mL/hr over 1 hour(s)---- Dispensed: 100 mL bagStop Site: #1 right wrist17:47 10/27/2019Audrey Renteria R.N.Start tylenol * Acetaminophen IV 500 mg (NOW13:10 10/27/2019 Dose: 500mg * Drip IV x1, Infuse over 15 minutes)Audrey Renteria R.N.----Stop17:47 10/27/2019Audrey Renteria R.N.Given BENADRYL [IVP] (DIPHENHYDRAMINE Benadryl IVP 12.5 mg (NOW x1)13:10 10/27/2019 HCL)Audrey Renteria R.N. Dose: 12.5 mg IVP Site: #1 right wristStart ROCEPHIN (1GM/50ML) [IVPB] Rocephin (1gm/50mL) IVPB 551042:11 10/27/2019 (CEFTRIAXONE SODIUM) mg with Dextrose 50 ml spike Audrey Edwards R.N. Dose: 1 gm IVPB (D5W)---- Rate: 125 mL/hr over 30 minute(s)Stop Dispensed: 50 mL bag17:47 10/27/2019 Site: #1 right wristAudrey Renteria R.N.Given MORPHINE [IVP] Morphine IVP 2 mg (NOW x1, keep16:09 10/27/2019 Dose: 2 mg IVP o2 sat > 90%, HIGH ALERTAudrey Renteria R.N. Site: #1 right wrist MEDICATION)Given ZOFRAN [IVP] (ONDANSETRON HCL) Zofran IVP 4 mg16:10 10/27/2019 Dose: 4 mg IVP 2 Medication Administration Record [facility] Emergency Department [address] [place] [address] Phone #: ext [phone] 10/27/2019 11:08 Patient: NI DIAZ Sex: F : 1980 Age: 39yHardy, Audrey, R.N. Site: #1 right wrist Name Value Range Interpretation Code Description Data Sumaya rce(s) Supporting Document(s) ID Date Data Source [id number] 10/27/2019 11:19:00 AM [facility] 1 General Instructions [facility] Emergency Department [address] [place] [address] Phone #: ext- [phone] 10/27/2019 11:08 Patient: NI DIAZ Sex: F : 1980 Age: 39ySevere sepsis with shock and acute cardiovascular failure. No altered mental status or disseminatedintravascular coagulation.Acute urinary tract infection with cystitis and hematuria. Not associated with indwelling catheter orobstruction.Hypokalemia.(Electronically signed by TROY Andres 10/27/2019 18:22) Name Value Range Interpretation Code Description Data Sumaya rce(s) Supporting Document(s) ID Date Data Source [id number] 10/27/2019 11:19:00 AM [facility] 1 Clinical Report - Nurses [facility] Emergency Department [address] [place] [address] Phone #: ext [phone] 10/27/2019 11:08 Patient: NI DIAZ Sex: F : 1980 Age: 39yTRIAGE Arrived by private vehicle. Historian: patient. Accompanied by spouse. Triage time: 11:09 10/27/2019. Acuity: LEVEL 3. Chief Complaint: FEVER and (SOB, heart racing). Alert. No acute distress. Onset. (5 days ago). ( Pt states she has a [place] for TPN/medication for malabsoprtion/gastroparesis; Pt is worried that she has a line infection; Pt states she got a blood transfusion on and she started feeling unwell after this. Pt states she has had a fever as high as 103.9 1 hour ago and she put tylenol via her J-tube and zofran via IV.). ( nausea. Pt went to [facility] on Saturday and tested negative for the flu and labwork, and all was negative per pt). Treatment RAIL BENDER: (Tylenol 1 hour ago, Zofran 1 hour ago). QUICK SEPSIS RELATED ORGAN FAILURE ASSESSMENT SCORE: 2 (high risk; assess for presence of organ dysfunction). Respiratory rate greater than or equal to 22 breaths a minute and systolic blood pressure less than or equal to 100 mmhg. Physician notified. SEPSIS SCREEN: NEGATIVE. Infection suspected/documented. Heart rate greater than 90 (11:18 10/27/2019). --11:18 10/27/19 Lucía Navarrete R.N. 11:17 10/27/19. BP: 99/65. MAP: 76. HR: 115. RR: 22. O2 saturation: 98% on room air. Temp: 99.8 F (temporal). Pain level now: 04/29. --11:18 10/27/19 Lucía Navarrete R.N. Acuity: LEVEL 2. --11:32 10/27/19 Lucía Navarrete R.N. Weight: 65.7 kg stated. Height/Length: 67 inches Per Patient. BMI: 22.7. --11:08 10/27/19 Lucía Navarrete R.N. Medications Ondansetron HCl Injection 8 mg IVP, q8h as needed. --11:12 10/27/19 Lucía Navarrete R.N. Protonix Intravenous (Solution Reconstituted 40 mg), 2x a day. --11:12 10/27/19 Lucía Navarrete R.N. Benadryl IV 50mg QDAY for nausea. --11:12 10/27/19 Lucía Navarrete R.N. FLUoxetine HCl Oral 20 mg, daily, via J tube. --11:12 10/27/19 Lucía Navarrete R.N. Ambien Oral 5 mg, daily as needed, at bedtime, via J tube. --11:13 10/27/19 Lucía Navarrete R.N. Tylenol Oral, as needed. --11:13 10/27/19 Lucía Navarrete R.N. oxyCODONE HCl Oral 10 mg, 4x a day as needed, via J tube. --11:13 10/27/19 Lucía Navarrete R.N. Carafate Oral 1 gm, q4h, via J tube. --11:14 10/27/19 Lucía Navarrete R.N. Cytotec Oral unknown, daily, J tube. --11:14 10/27/19 Lucía Navarrete R.N. 2 Clinical Report - Nurses [facility] Emergency Department [address] [place] [address] Phone #: ext- [phone] 10/27/2019 11:08 Patient: NI DIAZ [facility]#: [id number] Sex: F : 1980 Age: 39yCreon Oral (Capsule Delayed Release Particles [id number] unit) 1 capsule, 4x a day, J tube. --11: Lucía Navarrete R.N.AllergiesSulfa Antibiotics. --11:15 10/27/19 Lucía Navarrete R.N.Levaquin.traZODone HCl. --11:15 10/27/19 Lucía Navarrete R.N.PROBLEMS:Gastroparesis.Back Pain.Malabsorption syndrome. --11:42 10/27/19 Reynaldo Andres following entry was modified by TROY Andres, 11:42 10/27/19Back Pain. --11:15 10/27/19 Lucía Navarrete R.N.The following entry was modified by TROY Andres, 11:42 10/27/19Gastroparesis. --11:15 10/27/19 Lucía Navarrete R.N.The following entry was modified by TRYO Andres, 11:42 10/27/19Malabsorption syndrome. --11:15 10/27/19 Lucía Navarrete R.N..Medication/allergy information source: the patient. --11:18 10/27/19 Lucía Navarrete R.N.ADDITIONAL SURGERIES:Abd for obstruction.Bowel resection.Cholecystectomy.Feeding Tube Placement.Gastric bypass.Gastric bypass reversal [08/2019].GI bleed clipping.Hysterectomy.Spinal fusion. --11:16 10/27/19 Lucía Navarrete R.N.HistoryPAST MEDICAL HX: Immunizations: up-to-date. The patient has had a hysterectomy.SOCIAL HX: Never smoker. No alcohol use or drug use. No recent travel. No known contact with a sickindividual. She was offered HIV testing but declined. Patient education was provided. She was offeredhepatitis C testing but declined. Patient education was provided. She has not traveled outside the [place]Infectious disease exposure: No infectious disease exposure. Patient is a known carrier of MRSA. (Pt hashad known MRSA in central line). Patient is not a known carrier of tuberculosis, hepatitis, HIV, VRE orCRE.ABUSE ASSESSMENT: Abuse assessment. The patient had positive responses to the question(s) "Do youfeel safe in your home?". Abuse denied. No suspicion of abuse. No report of abuse. 3 Clinical Report - Nurses [facility] Emergency Department [address] [place] [address] Phone #: ext- [phone] 10/27/2019 11:08 Patient: NI DIAZ Sex: F : 1980 Age: 39y NUTRITIONAL RISK ASSESSMENT: The nutritional risk assessment revealed no deficiencies. FUNCTIONAL ASSESSMENT: Functional assessment: no impairments noted. LEARNING NEEDS ASSESSMENT: The learning needs assessment revealed no barriers. SKIN INTEGRITY ASSESSMENT: Skin integrity risk assessment completed. No skin integrity risk identified. --10/27/19 Lucía Navarrete R.N. SELF HARM ASSESSMENT: Self harm assessment was performed. The patient answered "no" to the question(s) "Have you recently felt down, depressed, or hopeless?", "Do you have thoughts of harming or killing yourself?", "Do you have a plan for harming or killing yourself?", "Have you recently had thoughts about harming or killing others?", "Do you have any dangerous items in your possession?", "Have you noticed less interest or pleasure in doing things?", "Are you here because you tried to hurt yourself?" and "Have you ever tried to hurt yourself before today?". FALL RISK ASSESSMENT: Fall risk assessment completed. No risk factors identified. --18:07 10/27/19 Audrey Renteria R.N. Interventions Identification band on patient. --1110/27/19 Lucía Navarrete R.N.PHYSICAL ASSESSMENT ( pt. with a noted left subclavian piccline with drsg. clean dry and intact, no redness or swelling noted around or near it, both red and purple lines are clamped with end secured. pt. appears to be in no distress at this time,). GENERAL / NEURO / PSYCH: Alert. Oriented X 4. HEENT: Pupils equal, round and reactive to light. Mucous membranes are pink. RESPIRATORY: Respirations not labored. Chest nontender. Breath sounds within normal limits. CVS: Capillary refill less than 2 seconds. Pulses within normal limits. GI / : Abdomen soft and nontender and normal bowel sounds. SKIN: Skin intact. Skin is warm and dry. Normal skin turgor. --11:34 10/27/19 Audrey Renteria R.N.NURSING PROGRESS NOTES Patient ID band checked for patient name and birthdate: patient confirmed. Blood samples drawn by nurse per protocol ; labeled in presence of the patient and sent to lab: rainbow set: blood culture (1st set). Galicia catheter accessed, site prepped with Betadine. (one set drawn from each hub). --11:32 10/27/19 Lucía Navarrete R.N. ( EKG performed by [employer] at 11:19 given to provider). --11:49 10/27/19 [facility] 11:45 10/27/19. BP: 116/92. MAP: 100. --11:56 10/27/19 [facility] Clinical Report - Nurses [facility] Emergency Department [address] [place] [address] Phone #: ext- [phone] 10/27/2019 11:08 Patient: NI DIAZ Sex: F : 1980 Age: 39y12:03 10/27/19. BP: 86/68. MAP: 74. --12:03 10/27/19 [facility] Shobha, Sutus Xuht175:[id number] 10/27/2019 Site #1 started via IV in the right wrist with an 22g angiocath, with aseptic technique andgood blood return; four attempts. Saline lock flushed with 10 mL saline (Unalbe to draw 2nd set of BC fromline; pt refusing peripheral BC at this time, PA aware). --12:10 10/27/19 Lucía Navarrete R.N.12:13 10/27/2019 Started bag #1 1000 mL IV Fluids NS; at 1000 mL/hr over 1 hour(s) via site #1. Allergiesverified and confirmed 5 rights. IV patency established. IV site checked: no pain, redness, or swelling. IVflushed thoroughly pre- and post-medication administration. Information reviewed with patient. Verbalizesunderstanding. --12:13 10/27/19 Audrey Renteria R.N.12:13 10/27/2019 Benadryl Liquid PO 12.5 mg (thru galicia) was refused by patient because of can takeit at home. --12:13 10/27/19 Audrey Renteria R.N.12:13 10/27/2019 Acetaminophen Liquid PO 500 mg (thru galicia) was refused by patient because of cantake at home. --12:13 10/27/19 Audrey Renteria R.N.12:18 10/27/2019 Started bag #1 1000 mL IV Fluids NS; at 1000 mL/hr over 1 hour(s) via site #1 --12:181 Audrey Renteria R.N.12:32 10/27/19. BP: 85/67. MAP: 73. HR: 109. RR: 21. O2 sat uration: 100%. --12:32 10/27/19 Ellijay Alyssa Shobha, ER [id number] 10/27/19. BP: 92/58. MAP: 69. HR: 104. RR: 24. O2 saturation: 100%. --12:50 10/27/19 [facility] Shobha, ER [id number]:03 10/27/19. BP: 99/71. MAP: 80. HR: 57. RR: 16. O2 saturation: 100%. --13:03 10/27/19 [facility] Shobha, ER [id number] 10/27/2019 Started 10 meq of Potassium Chloride IVPB in bag #1 100 mL; at 100 mL/hr over 1hour(s) via site #1. Allergies verified and confirmed 5 rights. IV patency established. IV site checked: nopain, redness, or swelling. IV flushed thoroughly pre- and post-medication administration. Informationreviewed with patient. Verbalizes understanding. --13:08 10/27/19 Audrey Renteria R.N.13:10 10/27/2019 tylenol * Drip IV 500mg --13:10 10/27/19 Audrey Renteria R.N.13:10 10/27/2019 Benadryl (diphenhydrAMINE HCl) IVP 12.5 mg given over 2 minute(s) via site #1.Allergies verified and confirmed 5 rights. IV patency established. IV site checked: no pain, redness, orswelling. IV flushed thoroughly pre- and post-medication administration. IVP given by RN. Informationreviewed with patient including sedative warning. Verbalizes understanding. --13:10 10/27/19 Audrey Renteria R.N.13:11 10/27/2019 Started 1 gm of ROCEPHIN (1GM/50ML) (cefTRIAXone Sodium) IVPB in bag #1 50 mL;at 125 mL/hr over 30 minute(s) via site #1. Allergies verified and confirmed 5 rights. IV patency established. 5 Clinical Report - Nurses [facility] Emergency Department [address] [place] [address] Phone #: ext- [phone] 10/27/2019 11:08 Patient: NI DIAZ Sex: F : 1980 Age: 39yIV site checked: no pain, redness, or swelling. IV flushed thoroughly pre- and post-medicationadministration. Information reviewed with patient. Verbalizes understanding. --13:11 10/27/19 Audrey Renteria R.N.13:22 10/27/19. BP: 86/58. MAP: 67. HR: 101. RR: 16. O2 saturation: 100%. --13:22 10/27/19 [place] [employer], Shobha, ER [id number] after medication administered. She reports no complaints and she is resting quietly.--13:39 10/27/19 Audrey Renteria R.NCarmelo13:46 10/27/19. BP: 80/49. MAP: 59. HR: 91. RR: 9. O2 saturation: 100%. --13:46 10/27/19 [facility] Jgou361:00 10/27/19. BP: 85/60. MAP: 68. HR: 102. RR: 17. O2 saturation: 100%. --14:06 10/27/19 [facility] Shobha, ER Tech1( Pt placed in reverse trendelenberg per PA request for BP; Pt c/o back pain however remainshypotensive; Will reassess). --14:10 10/27/19 Lucía Navarrete R.N.14:17 10/27/19. BP: 83/50. MAP: 61. HR: 87. RR: 19. O2 saturation: 100%. --14:17 [facility] Shobha, [id number] transported to [place] by wheelchair with tech. --14:28 10/27/19 Lucía Navarrete R.N.14:42 10/27/19. BP: 84/55. MAP: 64. HR: 85. RR: 20. O2 saturation: 100%. --14:43 10/27/19 [facility] Shobha, Midb4Eou patient is resting quietly and has had no adverse reaction. Overall patient status is the same- shestates feels the same. --14:53 10/27/19 Audrey Renteria R.NCarmelo15:10/27/19. BP: 83/57. MAP: 65. HR: 90. RR: 18. O2 saturation: 100% on room air. Temp: 98.6 F(temporal). --15:02 10/27/19 Lucía Navarrete R.N.15:20 10/27/19. BP: 83/61. MAP: 68. HR: 92. RR: 20. O2 saturation: 100%. --15:20 10/27/19 [facility] Ibup420:30 10/27/19. BP: 88/54. MAP: 65. HR: 89. RR: 16. O2 saturation: 99%. --15:34 10/27/19 [facility] Ypra407:48 10/27/19. BP: 91/61. MAP: 71. HR: 92. RR: 18. O2 saturation: 98%. --15:48 10/27/19 [facility] Efzd531:00 10/27/19. BP: 88/60. MAP: 69. HR: 97. RR: 13. O2 saturation: 100%. --16:04 10/27/19 [facility] T ech1 6 Clinical Report - Nurses [facility] Emergency Department [address] [place] [address] Phone #: ext- [phone] 10/27/2019 11:08 Patient: NI DIAZ Sex: F : 1980 Age: 39y 16:09 10/27/2019 Morphine IVP 2 mg given over 2 minute(s) via site #1. Allergies verified and confirmed 5 rights. IV patency established. IV site checked: no pain, redness, or swelling. IV flushed thoroughly pre- and post- medication administration. IVP given by RN. Information reviewed with patient including sedative warning. Verbalizes understanding. --16:09 10/27/19 Audrey Renteria R.N. 16:10 10/27/2019 Zofran (Ondansetron HCl) IVP 4 mg given over 2 minute(s) via site #1. Allergies verified and confirmed 5 rights. IV patency established. IV site checked: no pain, redness, or swelling. IV flushed thoroughly pre- and post-medication administration. IVP given by RN. Information reviewed with patient. Verbalizes understanding. --16:10 10/27/19 Audrey Renteria R.N. 16:31 10/27/19. BP: 86/55. MAP: 65. HR: 93. RR: 17. O2 saturation: 100%. --16:31 10/27/19 [facility], [facility] Tech The patient reports no complaints and she is resting quietly. --16:35 10/27/19 Audrey Renteria R.N. 17:01 10/27/19. BP: 83/50. MAP: 61. HR: 89. RR: 16. O2 saturation: 100%. --17:02 10/27/19 [facility], [place] [address] 17:46 10/27/2019 IV Fluids NS via IV site #1 Discontinued: bag #1 completed. Total amount infused: 1000 mL. IV patency established. IV site checked: no pain, redness, or swelling. IV flushed thoroughly. --17:46 10/27/19 Audrey Renteria R.N. 17:46 10/27/2019 IV Fluids NS via IV site #1 Discontinued: bag #2 discontinued. Total amount infused: 600 mL. IV patency established. IV site checked: no pain, redness, or swelling. IV flushed thoroughly. --17:46 10/27/19 Audrey Renteria R.N. 17:47 10/27/2019 Potassium Chloride IVPB via IV site #1 Discontinued: completed. Total amount infused: 100 mL. IV patency established. IV site checked: no pain, redness, or swelling. IV flushed thoroughly. --17:47 10/27/19 Audrey Renteria R.N. 17:47 10/27/2019 ROCEPHIN (1GM/50ML) IVPB via IV site #1 Discontinued: completed. Total amount infused: 50 mL. IV patency established. IV site checked: no pain, redness, or swelling. IV flushed thoroughly. --17:47 10/27/19 Audrey Renteria R.N. 17:47 10/27/2019 Tylenol Drip IV Discontinued: completed. Total amount infused: 25 mL. --17:47 10/27/19 Audrey Renteria R.N.DISPOSITION / DISCHARGE Report was given to a nurse. Report included patient's care. All questions were answered. Report was acknowledged and care was transferred. (Edith QUINONES). ( report has been called with no further questions at this time.. waiting on transport team. pt. and family have been advised, paperwork complete.). --17:27 10/27/19 Audrey Renteria R.N. 7 Clinical Report - Nurses [facility] Emergency Department [address] [place] [address] Phone #: ext- [phone] 10/27/2019 11:08 --------- Patient: NI DIAZ Sex: F : 1980 Age: 39y Condition at departure: stable. Transported via stretcher by architectural manager, EMS and transport team with monitor, IV and O2. --17:45 10/27/19 Audrey Renteria R.N. 17:44 10/27/19. BP: 87/54. MAP: 65. HR: 90. RR: 16. O2 saturation: 99%. Temp: 98.4 F. Pain level now: 01/28. --17:45 10/27/19 Audrey Renteria R.N. Departure time: 18:01 10/27/2019. --18:06 10/27/19 Audrey Renterai R.N.Locked/Released at 10/27/2019 18:07 by Audrey Renteria R.N. Name Value Range Interpretation Code Description Data Sumaya rce(s) Supporting Document(s) ID Date Data Source [id number] 0001 10/27/2019 11:19:00 AM EST [facility] 1 Clinical Report - Physicians/Mid Levels [facility] Emergency Department [address] [place] [address] Phone #: ext- [phone] 10/27/2019 11:08 Patient: NI DIAZ [facility]#: [id number] Sex: F : 1980 Age: 39y Time Seen: 11:21 10/27/2019. Arrived- By private vehicle. Historian- patient. Disposition decision: 15:17 10/27/2019.HISTORY OF PRESENT ILLNESS Chief Complaint: FEVER and "NOT FEELING WELL". This started about 5 days ago; Intermittent fever, not feeling well since Saturday of last week. Pt had blood transfusion at [facility] last and states she started to not feel well after [place]. Has chronic anemia from ? GI bleed per pt. Intermittent fever started on Saturday, not been urinating alot and heart racing since. Has J tube abd and [place] port L upper chest secondary to multiple abdominal surgeries ( gastric bypass, and gastric bypass reversal) and development of chronic malabsorsion and is TPN. States she has increasing generalized abd pain with nausea. L flank pain as well. No muscle aches, chest pain, dyspnea, cough or diarrhea. No altered mental status, skin breakdown noted or rash or joint pain. She has had loss of appetite, fatigue and decreased oral intake and urine output. Additional history - The patient has a recent hospitalization and an indwelling line. No known contact with a sick individual. Has not recently been ill. She is not immunocompromised. No organ transplant. No recent absolute neutrophil count. No new medication recently administered. No history of cancer. No history of HIV illness. No recent travel. No known exposure to an animal. No drug use. No alcohol recently. No Tobar catheter. Similar symptoms previously. Patient has had similar symptoms several times. Recent medical care: The patient was seen recently at another facility in the emergency department.REVIEW OF SYSTEMS Has had a hysterectomy. She has had anorexia and nausea. No weight loss, palpitations, calf pain, sputum production or constipation. No black stools, difficulty with urination, vomiting, headache or sinus pain. No sore throat, tick bite, easy bruising, enlarged lymph nodes or neck pain. No back pain. She has had moderate, constant, sharp left-sided flank pain.PAST HISTORY See nurses notes. Problems: G-Tube Replacement. Fever. Gastric ulcer. Gastroparesis. Cellulitis. Anemia. Abdominal Pain. 2 Clinical Report - Physicians/Mid Levels [facility] Emergency Department [address] [place] [address] Phone #: ext- [phone] 10/27/2019 11:08 [id number] Sex: F : 1980 Age: 39yBack Injury.Back Pain.Pulmonary Embolism.Other Disease.UTI - Urinary Tract Infection.Respiratory Distress.Status Epilepticus.GI Disease.GI Bleeding.Malabsorption syndrome.Hypoxia.Lung Disease.Additional Surgeries:Abd for obstruction.Bariatric Surgery.Bowel resection.Bowel Resection [2016].Cholecystectomy.Feeding Tube Placement.Gastric bypass.Gastric bypass reversal [08/2019].Gastric Resection [2008].GI bleed clipping.G-Tube Placement.Hysterectomy.J-tube placement.J-Tube placement.Life port removed.Lifeport [10/2017].Portacath left chest.Nadege-en-Y gastrojejunostomy [2009].Spinal fusion.Spinal fusion.Medications:Creon Oral (Capsule Delayed Release Particles [id number] unit) 1 capsule, 4x a day, J tube.Cytotec Oral unknown, daily, J tube.Carafate Oral 1 gm, q4h, via J tube.oxyCODONE HCl Oral 10 mg, 4x a day as needed, via J tube.Tylenol Oral, as needed.Ambien Oral 5 mg, daily as needed, at bedtime, via J tube.FLUoxetine HCl Oral 20 mg, daily, via J tube.Benadryl IV 50mg QDAY for nausea. 3 Clinical Report - Physicians/Mid Levels [facility] Emergency Department [address] [place] [address] Phone #: ext- [phone] 10/27/2019 11:08 [id number] Sex: F : 1980 Age: 39y Protonix Intravenous (Solution Reconstituted 40 mg), 2x a day. Ondansetron HCl Injection 8 mg IVP, q8h as needed. Allergies: Levaquin. Sulfa Antibiotics. traZODone HCl.SOCIAL HISTORY Never smoker. Not exposed to second- hand smoke at home. No alcohol use or drug use. No recent travel.ADDITIONAL NOTES The nursing notes have been reviewed with agreement regarding the chief complaint, HPI, ROS, PMH and patient medications and allergies.PHYSICAL EXAM Vital Signs: 10/27/2019 12:32 BP: 85/67. MAP: 73. HR: 109. RR: 21. O2 saturation: 100%. 10/27/2019 12:16 BP: 95/61. MAP: 72. HR: 102. RR: 20. O2 saturation: 98%. Pain level now: 04/29. 10/27/2019 12:03 BP: 86/68. MAP: 74. 10/27/2019 11:45 BP: 116/92. MAP: 100. 10/27/2019 11:17 BP: 99/65. MAP: 76. HR: 115. RR: 22. O2 saturation: 98% on room air. Temp: 99.8 F. Pain level now: 04/29. Have been reviewed as abnormal. Hypotensive. Mean arterial pressure- normal. Tachycardic. Tachypneic. Temperature normal. Oxygen saturation normal. Appearance: Alert. Anxious. Appears to be in pain. She appears ill and in pain and is pale and mildly dehydrated. She is alert and oriented, shows no apparent trauma and appears malnourished. Patient in moderate distress. Distress appears due to pain and anxiety. Eyes: Pupils equal, round and reactive to light. Eyes normal inspection. ENT: Ears normal. Nose normal. Pharynx normal. Uvula midline. Neck: Normal inspection. Neck supple. CVS: Tachycardia. Heart sounds normal. Pu lses normal. Respiratory: No respiratory distress. Painless inspiration. Breath sounds normal. Chest nontender. Abdomen: Soft. Tenderness in the right and left side of the abdomen, right lower quadrant, left lower quadrant and lower abdomen. Bowel sounds normal. No organomegaly. No mass. Back: Normal inspection. Skin: Skin warm and dry. No rash. Normal skin turgor. Slight pallor. ([place] port L upper chest, no secondary signs of infection around port, dressing in place over port, J tube, abd in place without signs secondary infection.). Extremities: Extremities exhibit normal ROM. Extremities nontender. Neuro: Oriented X 3. No motor deficit. No sensory deficit. Reflexes normal.LABS, X- RAYS, AND EKG EKG: EKG time: 11:43 10/27/2019. No acute process. No acute ischemia. Rate: 106. Regular narrow-complex tachycardia. Sinus tachycardia. Normal P waves. Normal CLARENCE. Normal QRS complex. Normal axis. Normal ST and T waves, QT and QTc. EKG unchanged when compared with prior EKG. 4 Clinical Report - Physicians/Mid Levels [facility] Emergency Department [address] [place] [address] Phone #: ext- [phone] 10/27/2019 11:08 Patient: NI DIAZ Sex: F : 1980 Age: 39yThe study has been interpreted contemporaneously. The study has been independently viewed by me.The EKG appears to be a good tracing. Interpretation time: 11:43 10/27/2019.Chest X-ray: (radiopaque densities over the costophhrenic angle on the left, likely external to the pt andpart of the patient's central catheter. See radiologist's report.). Views: AP (portable). Technique: good.The X-rays were independently viewed by me and interpreted by the radiologist and contemporaneously byme. Interpretation time: 15:37 10/27/2019.Abdominal CT: mild enteritis, No evidence of obstruction, however there is a swirl sign in the midmesentery which could represent an internal hernia. No evidence of pneumatosis or other suggestion ofischemic bowl. Moderate spenomegaly. Study type: abdomen and pelvis. Abdominal CT performed withIV contrast and without contrast. The study was independently viewed by me and interpreted by theradiologist and contemporaneously by me. Interpretation time: 15:18 10/27/2019.Laboratory Tests: Laboratory tests have been ordered, with results reviewed and considered in themedical decision making process.Lactic Acid: (LUISANA: 10/27/2019 15:10) ( [facility] 10/27/2019 15:38) Final results Test Result Flag Units (Reference) LACTIC ACID 2.7 H MMOL/L (0.2 - 2.2)CRP: (LUISANA: 10/27/2019 11:30) ( [facility] 10/27/2019 13:43) Final results Test Result Flag Units (Reference) CRP-HS 34.55 H MG/L (1.00 - 3.00) CDC/S HS-CRP CUT- OFF: RELATIVE RISK: <1.0 mg/LLow 1.0 - 3.0 mg/L Average >3.0 mg/LHigh Optimally, the average of HS-CRP results repeated two weeks apart should be used forrisk assessment.PT/PTT: (LUISANA: 10/27/2019 11:30) ( [facility] 10/27/2019 13:21) Final results Test Result Flag Units (Reference) PROTIME 13.3 SECONDS (11.0 - 15.5) INR 1.00 (0.93 - 1.23) PTT 34.3 SECONDS (24.8 - 36.7) \\BLDo\\INR INTERPRETATION\\BLDx\\ Therapeutic range for Coumadin andrelated oral anticoagulants. -International Normalized Ratio (INR): 2.0 - 3.0 for VenousThrombosis, Pulmonary Embolus, Tissue heart valves, Acute RI Atrial Fibrillation, Valvular heart diseaseand recurrent Systemic Embolism. - International Normalized Ratio (INR): 2.5 - 3.5 forMechanical Prosthetic valve. \\BLDo\\PTT INTERPRETATION\\BLDx\\Critical results for patients not on therapy: >50 seconds Critical results for patients on therapy:>119 seconds Therapeutic range for patients on therapy: 58 - 90 seconds Coag studies fromline draws may not be accurate due to Heparin and other interferences.CT Abd PEL W/ IV Contrast Only: (LUISANA: 10/27/2019 12:53) ( OhgRcvd 10/27/2019 15:37) In ProgressCT ABDReason(s): Nausea, fever, abd pain, hx of gastric bypass and reversalTRANSPORTATION: S IV? IV?(Yes) O2? Oxygen?(No) Ro: HysterectomyCulture, Urine: (LUISANA: 10/27/2019 12:49) ( MsgRcvd 10/27/2019 12:53) CanceledSOURCE: Urine, Clean CatchChest Portable 1 View: (LUISANA: 10/27/2019 12:49) ( MsgRcvd 10/27/2019 14:39) In ProgressCHEST PORTABLEReason(s): feverTRANSPORTATION: P IV? O2? Oxygen?(No) Room: ED 5 Clinical Report - Physicians/Mid Levels [facility] Emergency Department [address] [place] [address] Phone #: ext- [phone] 10/27/2019 11:08 Patient: NI DIAZ Sex: F : 1980 Age: 39y: [place] [address] PHONE: [phone] FAX: [phone] Name .................. : BASILIO Torres Acct Number.................. : [id number] ROOM. ................. : TR-07 MR Number ................... : [id number] Stay type ............. : E/R Discharge Date......... ... : Admit Date ......... : 10/27/19 Admit Phys .................... : EBENEZER NAGI Date of ....... : 1980 [facility] ................... [facility] Phone .................. : [phone] Age ........... ..................... : 39 Film# .................. .:[id number] Sex ................................. : F Unsigned transcriptions are preliminary reports and do not represent a medical or legal document CHEST PORTABLE [id number] COMPLETE:10/27/19 13:04 ARS [id number] Reason(s): fever PORTABLE CHEST X-RAY: COMPARISON: Prior study from 09/29/18. FINDINGS: There are radiopaque densities identified over the left costophrenic angle which are believed to be part of the catheter and external to the patient. A PA and lateral view of the chest could be performed to confirm. Less likely, these could represent calcified granulomas. The cardiac silhouette appears unremarkable. The remainder of the lung snell are clear. The central catheter terminates in the superior vena cava. The osseous structures appear unremarkable. IMPRESSION: Radiopaque densities over the costophrenic angle on the left, likely external to the patient and part of the patient's central catheter. If confirmation is necessary, a 2-view chest should be considered. Examination dictated by TROY Cross. Examination was reviewed with Eleuterio Dukes MD, radiologist at the time of this dictation. Electronically Reviewed and Signed By DCTNAME , SIGNDATE, [place] Transcribe Initials: DZ , Transcribe Date: 10/27/19 14:31, Dictation Date: <<REPDIST>>Page 1 of 1Influenza Nasal A B: (LUISANA: 10/27/2019 12:33) ( MsgRcvd 10/27/2019 13:09) Final results Test Result Flag Units (Reference) INFLUENZA A NEGATIVE (NORMAL: NEGAT INFLUENZA B NEGATIVE (NORMAL: NEGAT INFLUENZA A REENTER NEGATIVE (NORMAL: NEGAT INFLUENZA B REENTER NEGATIVE (NORMAL: NEGAT PROCEDURAL CONTROL VALID KIT LOT # _[id number] 10/27/19.1308.[place] . . . KIT EXP DATE _06/01/20 6 Clinical Report - Physicians/Mid Levels [facility] Emergency Department [address] [place] [address] Phone #: ext- [phone] 10/27/2019 11:08 Patient: NI DIAZ Sex: F : 1980 Age: 39y/05/09.1308.MN . . .The Influenza A utilizing an isothermal nucleic acid amplification technologyfor thequalitative detection of influenza A and B viral RNA.Negative results do not preclude influenza virusinfection and should not beused as the sole basis for diagnosis, treatment or other patient managementdecisions.Blood Culture: (LUISANA: 10/27/2019 11:51) ( MsgRcvd 10/27/2019 12:53) CanceledLipase: (LUISANA: 10/27/2019 11:30) ( MsgRcvd 10/27/2019 12:32) Final results Test Result Flag Units (Reference) LIPASE 62 H U/L (13 - 60)CBC w Diff: (LUISANA: 10/27/2019 11:30) ( MsgRcvd 10/27/2019 12:30) Final results Test Result Flag Units (Reference) CBC W/AUTOMATED DIFF COMPLETE BLOOD COUNT WBC 7.9 10/uL (4.2 - 11.0) RBC 4.68 10/uL (4.20 - 5.40) HEMOGLOBIN 11.0 L g/dL (12.0 - 16.0) HEMATOCRIT 36.7 L % (37.0 - 47.0) MCV 78.4 L fL (81.0 - 101) MCH 23.5 L pg (27.0 - 34.0) MCHC 30.0 L g/dL (31.0 - 36.0) RDW 16.4 H % (11.5 - 14.5) PLATELETS 382 10/uL (150 - 450) MPV 9.0 fL (7.4 - 10.4) NEUT 94.0 H % (37.0 - 80.0) LYMPH 1.8 L % (25.0 - 40.0) MONO 1.9 L % (3.0 - 8.0) EOS 1.3 % (0.0 - 7.0) BASO 0.5 % (0.0 - 2.5) %IG 0.5 H % (0.0 - 0.0) %NRBC 0.0 % (0.0 - 0.0) #NEUT 7.41 H 10/uL (2.00 - 6.90) #LYMPH 0.14 L 10/uL (0.60 - 3.40) #MONO 0.15 10/uL (0.00 - 0.90) #EOS 0.10 10/uL (0.00 - 0.70) #BASO 0.04 10/uL (0.00 - 0.20) #IG 0.04 10/uL (0.00 - 0.10) #NRBC 0.00 10/uL (0.00 - 0.00) MANUAL DIFF SEE BELOW SEGS 93 H % (37 - 80) %LYMPH 5 L % (25 - 40) %MONO 1 L % (3 - 8) %EOS 1 % (0 - 7) RBC MORPH NOT INDICATEDCMP: (LUISANA: 10/27/2019 11:30) ( MsgRcvd 10/27/2019 12:34) Final results Test Result Flag Units (Reference) COMPREHENSIVE METABOLIC PANEL COMPREHENSIVE METABOLIC PANEL SODIUM 141 mEq/L (134 - 153) POTASSIUM 3.3 L mEq/L (3.6 - 5.0) CHLORIDE 105 mEq/L (98 - 107) CO2 23 MEQ/L (22 - 30) GLUCOSE 112 H MG/DL (65 - 110) BUN 9 MG/DL (7 - 21) CREATININE 0.8 MG/DL (0.7 - 1.5) BUN/CREAT 11 (8 - 27) TOTAL PROTEIN 7.0 G/DL (6.3 - 8.2) ALBUMIN 3.9 G/DL (3.9 - 5.0) GLOBULIN 3.1 GM/DL (2.4 - 3 .2) A/G RATIO 1.3 (0.8 - 2.0) CALCIUM 9.5 MG/DL (8.4 - 10.2) TOTAL BILI 0.8 MG/DL (0.2 - 1.3) 7 Clinical Report - Physicians/Mid Levels [facility] Emergency Department [address] [place] [address] Phone #: ext- [phone] 10/27/2019 11:08 Patient: NI DIAZ Sex: F : 1980 Age: 39y ALKALINE PHOS 192 H U/L (38 - 126) SGOT/AST 25 U/L (5 - 40) SGPT/ALT 13 U/L (7 - 56) ANION GAP 13.0 mmol/L (8.0 - 16.0) AGE 39 yrs NON-AA GFR 84 mL/min AFR AMER GFR 102 mL/min Male GFR Interprentation 20-49 yrs >60 mL/min Normal 50-59 yrs >56 mL/min Normal 60-69 yrs >49 mL/min Normal 70-79yrs >42 mL/min Normal 80 and above >35 mL/min Normal Female GFR Interpretation 20-39 yrs >60 mL/min Normal 40-49 yrs >58 mL/min Normal 50-59 yrs >51 mL/min Normal 60-69 yrs >45 mL/min Normal 70-79 yrs >39 mL/min Normal 80 and above >32 mL/min Normal Lactic Acid: (LUISANA: 10/27/2019 11:30) ( [facility] 11[facility]59[facility] Final results Test Result Flag Units (Reference) LACTIC ACID 3.2 H MMOL/L (0.2 - 2.2) Urinalysis: (LUISANA: 10/27/2019 12:00) ( OhgRcvd 10/27/2019 12:38) Final results Test Result Flag Units (Reference) URINALYSIS URINALYSIS SOURCE R COLOR ramos (NORMAL: Yello CLARITY clear (NORMAL: Clear SPEC GRAVITY 1.020 (1.001 - 1.030 pH 5 (5 - 9) GLUCOSE NORM (NORMAL: Negat BILIRUBIN 1 (NORMAL: Negat KETONE 5 A (NORMAL: Negat PROTEIN 100 A (NORMAL: Negat NITRITE POS (NORMAL: Negat BLOOD 10 A (NORMAL: Negat LEUK EST 500 A (NORMAL: Negat UROBILINOGEN 4 (less than 1.0 MICROSCOPIC See Below WBC 7 - 10 A (NORMAL: NONE EPITHELIAL FEW (NORMAL: NONE BACTERIA 1+ SMALL (NORMAL: NONE MUCOUS 2+ A (NORMAL: NONE.PROGRESS AND PROCEDURES Course of Care: 12:53 Oct 27 2019. Awaiting CTAB results. 13:10 Oct 27 2019. Records reviewed from recent [facility] visit, pt with essentially benign labs CXR, pt AMA'ed from ED. 15:Oct 27 2019. s/s c/w sepsis secondary to ascending UTI, mild hypokalemia, ? mid mesenteric internal hernia. Hospitalist here feels pt needs transfer to higher level of care, no TPN at [facility]. awaiting call back from [facility]. 16:06 Oct 27 2019. Pt will be transferred to Dr Hall, hospitalist service, [facility], for further evaluation and treatment. Critical care performed (30 minutes). Time is exclusive of separately billable procedures. Time includes: 8 Clinical Report - Physicians/Mid Levels [facility] Emergency Department [address] [place] [address] Phone #: ext- [phone] 10/27/2019 11:08 Patient: NI DIAZ Sex: F : 1980 Age: 39y direct patient care, patient reassessment, coordination of patient care, interpretation of data (laboratory data, pulse oximetry, chest xrays and prior electrocardiograms), review of patient's medical records, medical consultation and documentation of patient care- see progress notes. Disposition: Benefits, risks and alternatives to transfer explained to patient. Transferred to [facility]. UTI (catheter associated) was not present prior to transfer. Pressure ulcer was not present prior to transfer. Vascular infection (catheter associated) was not present prior to transfer. Surgical site infection was not present prior to transfer. An object left in surgery was not present prior to transfer. Air embolism was not present prior to transfer.CLINICAL IMPRESSION Severe sepsis with shock and acute cardiovascular failure. No altered mental status or disseminated intravascular coagulation. Acute urinary tract infection with cystitis and hematuria. Not associated with indwelling catheter or obstruction. Hypokalemia.(Electronically signed by TROY Andres 10/27/2019 18:22) Name Value Range Interpretation Code Description Data Sumaya rce(s) Supporting Document(s) ID Date Data Source [id number] 10/27/2019 11:19:00 AM EST [facility] Addenda for NI DIAZ VisitID: [id number] Date: 9:51Pt BC growing Enterobacteriaceae species and serratia marcescens detected via [place], prelimsshowing gram negative rods; Spoke to Jessica at 3w [facility] and faxed to [phone] at 0829(Electronically signed by Lucía Navarrete R.N. - 10/28/2019 9:51)10/29/2019 18:05Pt urine culture growing 10-20,000 Klebsiella Pneumoniae, Pt [facility] faxed to [phone] at 0848; BC growing serratia marcescens and this was faxed to them as wellat [phone](Electronic ally signed by Lucía Navarrete R.N. - 10/29/2019 18:05) Name Value Range Interpretation Code Description Data Sumaya rce(s) Supporting Document(s) ID Date Data Source [id number] 10/29/2019 03:49:09 PM [facility] MR LUMBAR SPINE WITH AND WITHOUT CONTRAS T [id number] RESULTInterpreted by:Kamran Coyne MD10/28/2019 1:25 PM MR LUMBAR SPINE WITH AND WITHOUT CONTRAST [id number] CLINICAL INFORMATION: r/o abscess, infection in L4-L5 hardware ADDITIONAL CLINICAL INFORMATION: None.TECHNIQUE: Multiplanar multi-sequential imaging of the lumbosacral spine was performed before and following intravenous contrast.The amount of contrast material used was recorded in the RIS and this information can be retrieved from there.COMPARISON: None..FINDINGS: For the purpose of this report, the lowest complete disk space is L5/S1. VERTEBRAE: Postsurgical changes with the posterior fixation of spine from L4 through S1. Susceptibility artifacts are noted. The vertebrae are normal in alignment. The vertebral bodies are normal in height.Age-appropriate fatty marrow changes are observed.CONUS MEDULLARIS: The conus medullaris is normal in morphology and terminates at L1.POST-SURGICAL CHANGES: None.INDIVIDUAL LEVELS:T12-L1: No disc herniation, spinal stenosis or foraminal narrowing.L1-L2: No disc herniation, spinal stenosis or foraminal narrowing.L2-L3: Annular tear with the mild posterior central disc protrusion without significant narrowing of spinal canal or neural foramina.L3-L4: Diffuse disc bulge with the mild facet hypertrophy. No significant narrowing of spinal canal or neural foramina.L4-5: No disc herniation, spinal stenosis or foraminal narrowing.L5-S1: No disc herniation, spinal stenosis or foraminal narrowing. Enhancing granulation tissue is noted in the right lateral recess.OTHER: NoneIMPRESSION:. No definite MRI evidence of for discitis or osteomyelitis No collection is seen..This document has been electronically signed by Kamran Coyne MD on 10/29/2019 3:46 PM Name Value Range Interpretation Code Description Data Sumaya rce(s) Supporting Document(s) ID Date Data Source [id number] 10/29/2019 11:12:35 AM [facility] XR ABDOMEN AP ERECT ONLY [id number] RESU LTInterpreted by:Jessica Carlson MDIndication: Patient was supposed to have an upper GI with a small bowel series to evaluate for motility after reversal of Nadege-en-Y gastric bypass.TECHNIQUE: A review specialist radiograph was performed on 10/29/[address] scan of 10/28/2019 and abdomen of 09/05/2019.FINDINGS: Stomach: There are surgical clips in left upper quadrant the abdomen since the patient is post reversal of a gastric bypass. There is some residual contrast in the stomach and significant oral contrast is noted throughout the colon with air-fluid levels noted throughout it. The upper GI and small bowel series was canceled since there is too much oral contrast throughout the colon and within the stomach to evaluate the stomach and small bowel. Once the patient is cleaned of contrast, then the exam could be performed.The organs: The liver is nonenlarged. The spleen may be enlarged. Please see the CT scan of the abdomen and pelvis for further evaluatio n. The spleen measured approximately [address] scan and is prominent. There are surgical clips in the liver and the patient is postcholecystectomy.Lung bases: There is overlying tubing along the left lower lobe. Right lung base is clear. There may be minimal linear atelectasis in the left costophrenic angle.The bones: There is a levoconvex curvature in the thoracolumbar spine. Patient is post posterior spinal fusion in the lower lumbar spine with intradiscal material at L4-5 and L5-S1 disc space. Patient had bone graft taken from the left posterior iliac wing.IMPRESSION:1. The upper GI and s mall bowel follow-through were canceled since there is some contrast material in the fundus of the stomach and throughout the colon which would obscure good visualization for any leak or any abnormality with the small bowel. Once the patient is cleaned of contrast, and the exam could be performed.2. Minimal left lower lobe linear atelectasis.3. Numerous surgical clips are noted in left upper quadrant, right upper quadrant, and posterior spinal fusion in the lower lumbar spine with intradiscal material noted.4. The spleen is noted to be mildly enlarged.This document has been electronically signed by Jessica Carlson MD on 10/29/2019 11:10 AM Name Value Range Interpretation Code Description Data Sumaya rce(s) Supporting Document(s) ID Date Data Source [id number] 10/28/2019 11:44:00 PM [facility] [address] [place] [address] RESPIRATORY CARE REPORT ==== ---------NAME------- NUMBER SEX AGE ADMIT DISC. XRAY# F/C TYPECHARLEBOJOE Torres [id number] F 39 10/27/19 10/27/19 [id number] BB2 E/R DATE OF : 1980 M/R# [id number] #: [id number] TR-07 LOCATION: EMERGENCY DEPT [facility] [id number] COMP LETE:10/28/19 02:12 T [id number] PHYSICIAN: EBENEZER LAZAR Name Value Range Interpretation Code Description Data Sumaya rce(s) Supporting Document(s) ID Date Data Source [id number] 10/28/2019 04:47:15 PM [facility] Name Value Range Interpretation Code Description Data Sumaya rce(s) Supporting Document(s) [facility] ERCESy9qTzGLHlEh13/TWWuvWYVmk2LzRRyqKXe0CTgiPSLyN0GdSLV6dK0zNGN6OFeTPuFcQrTjHER7 [facility] [file] [employer] products and planning [file] DQogICAgICAgICAgICAgICAgICAgICAgICAgICAgIC AgICAgICAgICAgICAgICAgICAgICAgICAgICAgICAgICAgICAgICAgICAgICAgICAgICAgICAgICAgIC AgICAgICAgICAgDQogICAgICAgICAgICAgICAgICAgICAgICAgICAgICAgICAgICAgICAgICAgICAgIC AgICAgICAgICAgICAgICAgICAgICAgICAgICAgICAg ICAgICAgICAgICAgICAgICAgICAgDQogICAgICAgICAgICAgICAgICAgICAgICAgICAgICAgICAgICAg ICAgICAgICAgICAgICAgICAgICAgICAgICAgICAgICAgICAgICAgICAgICAgICAgICAgICAgICAgICAg ICAgDQogICAgICAgICAgICAgICAgICAgICAgICAgIC AgICAgICAgICAgICAgICAgICAgICAgICAgICAgICAgICAgICAgICAgICAgICAgICAgICAgICAgICAgIC AgICAgICAgICAgICAgDQogICAgICAgICAgICAgICAgICAgICAgICAgICAgICAgICAgICAgICAgICAgIC AgICAgICAgICAgICAgICAgICAgICAgICAgICAgICAg ICAgICAgICAgICAgICAgICAgICAgICAgDQogICAgICAgICAgICAgICAgICAgICAgICAgICAgICAgICAg ICAgICAgICAgICAgICAgICAgICAgICAgICAgICAgICAgICAgICAgICAgICAgICAgICAgICAgICAgICAg ICAgICAgDQogICAgICAgICAgICAgICAgICAgICAgIC AgICAgICAgICAgICAgICAgICAgICAgICAgICAgICAgICAgICAgICAgICAgICAgICAgICAgICAgICAgIC AgICAgICAgICAgICAgICAgDQogICAgICAgICAgICAgICAgICAgICAgICAgICAgICAgICAgICAgICAgIC AgICAgICAgICAgICAgICAgICAgICAgICAgICAgICAg ICAgICAgICAgICAgICAgICAgICAgICAgICAgDQogICAgICAgICAgICAgICAgICAgICAgICAgICAgICAg ICAgICAgICAgICAgICAgICAgICAgICAgICAgICAgICAgICAgICAgICAgICAgICAgICAgICAgICAgICAg ICAgICAgICAgDQogICAgICAgICAgICAgICAgICAgIC AgICAgICAgICAgICAgICAgICAgICAgICAgICAgICAgICAgICAgICAgICAgICAgICAgICAgICAgICAgIC GaXPBbCFKcHBPfSGDaOWVzYTLjBDq2Z0ceCQQkRFYyPJ8hHSy5Ej0+LMkDJyOfEXI1guSghX6LFB2ef4 QaIAgoLRFsa2NoHRe7OS6ZHAYnAKxxQW3PQApvbt1W YTBeSMPoiHRVj9fnLwJoNDC7ZPKpAmdoLG8BGLTxY1ibehByCCZgOZPDKKtlAZEPUSlcPNPYQNThFYYn AmFtYrZdUJOlJOYaASINOIG1KUEoFzSuJAysGK0Qn0DbbMT2RXq+Ps0MUH9ox0AyUGjuHtZuUD7hkl4F FBgGDaAdY3PztoR2GED5FFAwJc1EREOtDIKymDQcJB IgXIIPZlVfB5FvpP70ANPGYk3+ZOzoqePhLxwEUiB1ISFst2AvNYp6FL7KZYLbROm6vHIbQ37aw6OcaE AyOtqsRLCkNHhpDBHFr8ikdWvkYNKbVCEgMA51OqOxYjMkTVA8EeTiLH0dUGvyHT7UEQG6RTseTFZpPE HbR6bGRhDkQKBwYXWnxMvqWM3AQwUoS2LrbaFzoNWp NyAwIFINCj4+JJqxkvNbBhnVUzR1YZJbl8LfHOj1DJ5NMYWaBCkcWM7WDCZlzK9wWZnyVH9XVwVcAEWy BNGXNfCgN48lwPAxKMn4U2LaBiVbVCHsOpmbHPCtFTjoDkBtASCnAtKjEBfqVF3+ID4+LAejKW4NVFrq eqOcFYBuVl9OZACrYHOeQZ5bUXTcKWNfW7H9yWmoMS QSAnUoS5bfaxacOT5fBNRyR346oFjpksDpJBC3JMEbOj9PZMQwOYE8FTMzcKNrDfDlNBBLHFlxGH1FmQ AoJDB2yN4rTCenEYHvJCSkM7mJTqJecPoiYZ99cQicmuFsbFZbGFc+Ey5MZM7xq6KlUKg9krYoLJyqVZ VwJUfqLFZnOPAqMHMdLLC2XSV4QOBBPpOxDCBsQPZz WLmcGWXdXLRpey5UATJeZJZvTziwODVeZRRfGVBbYGfsBOQqNZQ6VfZ9FFZpDSHdBL9MCxEpNTReLHAt YGgnWGVtJVHera3XBFYiBSPqGJU8IxGbDGQeZBZlHRelQGSsVCM4DpuaGIWvBLEbHA0NUiFvYOAtTUut GGLeDCOgEYHrhw9EEZNzUJDtEdJdCXOnKSHbWQEcGO itKKTbMZHiRmCeSFAdNSJzOW2OMdQtZISwXBG2UFEdKSKkUMGjeq4TIKUoBJDiNrClCOGjDDThXMZfCZ hdSOXuEQYmZdT9FAAjZMSyNE2FEjFqEMSxFWI7QkkdAZPpLMNosn9NJPQeZNNoFRy3CCAxSZOfEWWnFT kvVAGjOZL9CWU2NHZoIKXnZT7AIcRtQFYmDAlkBEYk FVEcMYRxuv4LKTZeLHFwKFT7GPYdQSGrJVFoWScjCDAaIGCbXrR9QYVuKRZqTK9UVtMkSZNyQaIeBPFj EEEqQATqhd9YJFEsSDUsAXNeYtFnZOWpXDFpGYkcUQUtMJExGOu1HZCiTPWkPJ7EKuRrENNnNnP7NPRy RNCkFPKzwe3XSJVdTHLuWuc9SrWuVYXmOYQdOOuzMF VrZXYbQOK0PGHnECRnCF2OBlBvFNDdTjM8ZXScGBWmMFBckl5PPXVbUFBqPWGaLkRuMKWtEDIePQunLU ZfRYT9Spw7TNMlXPRzUS9NRbLcGCWkMzZ2LsFfSWKjARJadi1TKZKfBXCeZAt5AVZnURVpGCBuMRcyES PpRHJ8ZDx7THTnLUQmTY1TJvHxCRSrBoU2BtEwZOIi XMBgpq8MHDOhEOPxJiH9NcOrPYIqMOLcFCeeJPTtQBS9VBQ6NSWnQHNuBB2XYrEwIJZoIlw1TWOeKONe ZQOxcy4YTHOnZIXzXgi6PlPuBUOkLBQpNYlsBOUkRZA9ScC8ZSBbMPBpLN5KWmLdLBFeEaf3GPEmMTGf TFIoqk1BHWWaJTQdIGq5RWYgPSXuWPTfPCkiHCJfBA EmLBY1SNRaUSDpJF0ZQsMlUMqeOOGBPcf4NYnxA2w4YXP8RH3HA5Zno0PlCifcCYJYEMweYI3nqeWfNM HcUu4CS0cFNcwmISa0SESsLEWeLVAtQuQjQHL1CfDgHWZ0BpudPEfrVq3bMJNxXZw2SELzMFS7FlGpVB L9SNi1ScZpHxfnGVLvWHJnMuXrVT9TUr8PWnP0TRJ9tEOjGn3VWETzMOsAGkZdZU3YIAe= ID Date Data Source [id number] 10/28/2019 11:17:00 AM EST [facility] [address] [place] [address] PHONE: [phone] FAX: [phone] Name .................. : BASILIO Torres Acct Number.................. : [id number] ROOM. ................. : TR-07 MR Number ................... : [id number] Stay type ............. : E/R Discharge Date......... ... : 10/27/19 Admit Date ......... : 10/27/19 Admit Phys .................... : EBENEZER NAGI Date of ....... : 1980 Family Phys ................... : [facility] Phone .................. : [phone] Age ................................ : 39 Film# .................. .:[id number] Sex ................................. : F Unsigned transcriptions are preliminary reports and do not represent a medical or legal document CT ABD & PELVIS W/ IV ONLY [id number] COMPLETE:10/27/19 15:35 [facility] [id number] Reason(s): Nausea, fever, abd pain, hx of gastric bypass and reversal CT OF THE ABDOMEN AND PELVIS WITH CONTRAST: INDICATION: Nausea, fever and abdominal pain. FINDINGS: The chest space is clear. There is normal contrast-enhanced CT appearance of the liver, pancreas, adrenal glands and kidneys. The spleen is markedly enlarged with a bulky contour measuring at least 15.1 cm craniocaudal. There is evidence of prior gastric surgery. There is a jejunostomy tube in place. No evidence of obstruction is visualized. In the mid-mesentery, there is a marked swirl sign. This does not appear to cause any obstruction. I do not know if the associated mesenteric vessels are compromised. There is suggestion of mild small bowel wall thickening in the right lower quadrant. The bladder is minimally distended which limits evaluation. The patient is status post hysterectomy. No acute osseous abnormality. IMPRESSION: 1. Mild enteritis. 2. No evidence of obstruction, however there is a swirl sign in the mid-mesentery, which can represent an internal hernia. There is no evidence of pneumatosis or other suggestion of ischemic bowel. 3. Moderate splenomegaly. While performing the above CT examination, radiation dose reduction was accomplished utilizing automated exposure control, adjusting of the mA and kV based on the patient's body size and/or the use of imperative reconstructive techniques. [address] 2 [place] [address] PHONE: [phone] FAX: [phone] Name .................. : BASILIO DAN Melissa Acct Number.................. : [id number] ROOM. ................. : TR-07 MR Number ................... : [id number] Stay type ............. : E/R Discharge Date......... ... : 10/27/19 Admit Date ......... : 10/27/19 Admit Phys .................... : EBENEZER NAGI Date of ....... : 1980 Family Phys ................... : CARLA Phone .................. : [phone] Age ................................ : 39 Film# .................. .:[id number] Sex ................................. : F Unsigned transcriptions are preliminary reports and do not represent a medical or legal document CT ABD & PELVIS W/ IV ONLY [id number] COMPLETE:10/27/19 15:35 [facility] [address] Reason(s): Nausea, fever, abd pain, hx of gastric bypass and reversal CT dose: 703.5 mGycm Contrast agent in mL: 75 Isovue 370 Method of administration: Intravenous Electronically Reviewed and Signed By Eleuterio Dukes M.D. , 10/28/19 11:17, [facility] Transcribe Initials: DZ , Transcribe Date: 10/27/19 22:33, Dictation Date: Copy for: EBENEZER Morales via fax Copy for: EMERGENCY DEPT via [facility] Copy for: 710 MED REC DISCHARGED Page 2 of 2 Name Value Range Interpretation Code Description Data Sumaya rce(s) Supporting Document(s) ID Date Data Source [id number] 10/28/2019 11:02:00 AM EST [facility] [address] [place] [address] PHONE: [phone] FAX: [phone] Name .................. : BASILIO Torres Acct Number.................. : [id number] ROOM. ................. : TR-07 MR Number ................... : [id number] Stay type ............. : E/R Discharge Date......... ... : Admit Date ......... : 10/27/19 Admit Phys .................... : EBENEZER NAGI Date of ....... : 1980 Family Phys ................... : [employer] Phone .......... ........ : [phone] Age ................................ : 39 Film# .................. .:[id number] Sex ................................. : F Unsigned transcriptions are preliminary reports and do not represent a medical or legal document CHEST PORTABLE [id number] COMPLETE:10/27/19 13:04 ARS 00232 Reason(s): fever PORTABLE CHEST X-RAY: COMPARISON: Prior study from 09/29/18. FINDINGS: There are radiopaque densities identified over the left costophrenic angle which are believed to be part of the catheter and external to the patient. A PA and lateral view of the chest could be performed to confirm. Less likely, these could represent calcified granulomas. The cardiac silhouette appears unremarkable. The remainder of the lung snell are clear. The central catheter terminates in the superior vena cava. The osseous structures appear unremarkable. IMPRESSION: Radiopaque densities over the costophrenic angle on the left, likely external to the patient and part of the patient's central catheter. If confirmation is necessary, a 2-view chest should be considered. Examination dictated by TROY Cross. Examination was reviewed with Eleuterio Dukes MD, radiologist at the time of this dictation. Electronically Reviewed and Signed By Eleuterio Dukes M.D. , 10/28/19 11:02, [place] Transcribe Initials: DZ , Transcribe Date: 10/27/19 14:31, Dictation Date: Copy for: EBENEZER Morales via fax Copy for: EMERGENCY DEPT via modem Copy for: 710 MED REC DISCHARGED Page 1 of 1 Name Value Range Interpretation Code Description Data Sumaya rce(s) Supporting Document(s) ID Date Data Source [id number] 10/28/2019 07:43:27 AM [facility] Value Range Interpretation Code Description Data Sumaya rce(s) Supporting Document(s) Natriuretic peptide.B prohormone N-Terminal [Mass/volu me] in Serum or Plasma 501 pg/mL <125 [facility] ID Date Data Source [id number] 10/28/2019 07:43:27 AM [facility] Value Range Interpretation Code Description Data Sumaya rce(s) Supporting Document(s) C reactive protein [Mass/volume] in Serum or Plasma 91.2 mg/L <8.0 [facility] ID Date Data Source [id number] 10/28/2019 07:43:27 AM [facility] Value Range Interpretation Code Description Data Sumaya rce(s) Supporting Document(s) Ferritin [Mass/volume] in Serum or Plasma 69 ng/ml 13-150 [facility] ID Date Data Source [id number] 10/28/2019 07:43:27 AM [facility] Value Range Interpretation Code Description Data Sumaya rce(s) Supporting Document(s) Albumin [Mass/volume] in Serum or Plasma by Bromocresol green (BCG) dye binding method 2.9 g/dL 3.5-5.2 [facility] Bilirubin.total [Mass/volume] in Serum or Plasma 0.9 mg/dL <1.2 [facility] Calcium [Mass/volume] in Serum or Plasma 7.8 mg/dL 8.6-10.0 [facility] Chloride [Moles/volume] in Serum or Plasma 105 mmol/L 98-107 [facility] Creatinine [Mass/volume] in Serum or Plasma 0.67 mg/dL 0.50-0.90 [facility] Glucose [Mass/volume] in Serum or Plasma 107 mg/dL 70-140 [facility] Alkaline phosphatase [Enzymatic activity/volume] in Serum or Plasma 205 U/L 35-104 [facility] Potassium [Moles/volume] in Serum or Plasma 3.3 mmol/L 3.4-5.1 [facility] Protein [Mass/volume] in Serum or Plasma 5.2 g/dL 6.4-8.3 L [facility] Sodium [Moles/volume] in Serum or Plasma 136 mmol/L 136-145 [facility] Aspartate aminotransferase [Enzymatic activity/volume] in Serum or Plasma 25 U/L <32 [facility] Urea nitrogen [Mass/volume] in Serum or Plasma 8 mg/dL 6-20 [facility] Osmolality of Serum or Plasma by calculation 281 mosm/kg 275-300 [facility] Creatinine/Urea nitrogen [Mass Ratio] in Serum or Plasma 11 [facility] Bicarbonate [Moles/volume] in Serum 21 mmol/L 22-29 [facility] Alanine aminotransferase [Enzymatic activity/volume] in Seru m or Plasma 14 U/L <33 [facility] Anion gap 3 in Serum or Plasma 11 mmol/L 8-15 [facility] Albumin/Globulin [Mass Ratio] in Serum or Plasma 1.0 [facility] Glomerular filtration rate/1.73 sq M pre dicted among non-blacks [Volume Rate/Area] in Serum or Plasma by Creatinine-based formula (MDRD) >6 0 [facility] Glomerular filtration rate/1.73 sq M pre dicted among blacks [Volume Rate/Area] in Serum or Plasma by Creatinine-based formula (MDRD) >60 [facility] ID Date Data Source [id number] 10/28/2019 07:43:27 AM [facility] Name Value Range Interpretation Code Description Data Sumaya rce(s) Supporting Document(s) Magnesium [Mass/volume] in Serum or Plasma 1.7 mg/dL 1.6-2.6 [facility] ID Date Data Source [id number] 10/28/2019 08:04:02 AM [facility] Name Value Range Interpretation Code Description Data Sumaya rce(s) Supporting Document(s) Erythrocyte sedimentation rate 18 mm/hr <20 [facility] ID Date Data Source [id number] 10/28/2019 08:04:13 AM [facility] Name Value Range Interpretation Code Description Data Sumaya rce(s) Supporting Document(s) Leukocytes [#/volume] in Blood by Automated count 5.0 10*3/uL 4-10 [facility] Erythrocytes [#/volume] in Blood by Automated count 3.70 10*6/uL 4.1- 5.3 [facility] Hemoglobin [Mass/volume] in Blood 8.9 g/dL 11.5-15.5 [facility] Hematocrit [Volume Fraction] of Blood by Automated count 27.7 % 3 6-45 [facility] Erythrocyte mean corpuscular volume [Entitic volume] by Auto mated count 74.9 fL 80-96 [facility] Erythrocyte mean corpuscular hemoglobin [Entitic mass] by Automated count 24.1 pg 27-33 [facility] Erythrocyte mean corpuscular hemoglobin concentration [Mass/volume] by Automated count 32.2 g/dL 32.0-36.0 [facility] distribution width [Ratio] by Automated count 18.4 % 11.5-14.5 [facility] Platelets [#/volume] in Blood by Automated count 250 10*3/uL 150-400 [facility] Differential cell count method - Blood [facility] Neutrophils/100 leukocytes in Blood by Automated count 52 % [facility] Lymphocytes/100 leukocytes in Blood by Automated count 4 % [facility] Monocytes/100 leukocytes in Blood by Automated count 8 % [facility] Basophils/100 leukocytes in Blood by Automated count 1 % [facility] Neutrophils [#/volume] in Blood by Automated count 2.60 10*3/uL 1.8-7 .0 [facility] Lymphocytes [#/volume] in Blood by Automated count 0.20 10*3/uL 1.2-4 .0 [facility] Monocytes [#/volume] in Blood by Automated count 0.40 10*3/uL 0-0.8 [facility] Basophils [#/volume] in Blood by Automated count 0.05 10*3/uL 0-0.2 [facility] Band form neutrophils/100 leukocytes in Blood by Manual count 34 % [facility] REVIEWED BY TECH 6509 Metamyelocytes/100 leukocytes in Blood by Manual count 1 % [facility] Band form neutrophils [#/volume] in Blood by Manual count 1.70 10*3 /uL 0-0.6 [facility] Metamyelocytes [#/volume] in Blood by Manual count 0.05 10*3/uL 0-0 [facility] Anisocytosis [Presence] in Blood by Light [facility] Elliptocytes [Presence] in Blood by Light [facility] Microcytes [Presence] in Blood by Light [facility] Spherocytes [Presence] in Blood by [facility] ID Date Data Source [id number] 10/28/2019 10:30:51 AM [facility] Name Value Range Interpretation Code Description Data Sumaya rce(s) Supporting Document(s) Iron [Mass/volume] in Serum or Plasma 15 ug/dl 37-145 [facility] Transferrin [Mass/volume] in Serum or Plasma 204 mg/dL 200-360 [facility] Iron binding capacity [Mass/volume] in Serum or Plasma 283 ug/dl 228 -428 [facility] Iron saturation [Mass Fraction] in Serum or Plasma 5.0 % 20-55 [facility] ID Date Data Source [id number] 10/28/2019 01:25:48 PM [facility] Name Value Range Interpretation Code Description Data Sumaya rce(s) Supporting Document(s) Phosphate [Mass/volume] in Serum or Plasma 2.8 mg/dL 2.5-4.5 [facility] ID Date Data Source [id number] 10/28/2019 07:06:26 AM [facility] Name Value Range Interpretation Code Description Data Sumaya rce(s) Supporting Document(s) Lactate [Moles/volume] in Serum or Plasma 1.8 mmol/l 0.5-2.2 [facility] ID Date Data Source [id number] 10/28/2019 04:47:41 AM [facility] CT ABDOMEN PELVIS WITH CONTRAST [id number] AL RESULTInterpreted by:ELISEO Rae INFORMATION: Exam: CT Abdomen And Pelvis With Contrast Exam date and time: 10/28/2019 4:02 AM Age: 39 years old Clinical indication: Abdominal pain; Additional info: Worsening abdominal pain TECHNIQUE: Imaging protocol: Computed tomography of the abdomen and pelvis with intravenous and oral contrast. Radiation optimization: All CT scans at this facility use at least one of these dose optimization techniques: automated exposure control; mA and/or kV adjustment per patient size (includes targeted exams where dose is matched to clinical indication); or iterative reconstruction. Contrast material: OMNI 300; Contrast volume: 100 ml; Contrast route: IV; COMPARISON: CT ABD //T// PELVIS W/ IV ONLY 10/27/2019 2:13 PM FINDINGS: Tubes, catheters and devices: A percutaneous jejunostomy tube is again identified. Lungs: There is a 5 mm nodule in the right lower lobe. There is a probable granuloma in the left lung base. Heart: A small anterior pericardial effusion has decreased in size currently measuring 8 mm in maximum thickness. Liver: Normal. No mass. Gallbladder and bile ducts: There is evidence of cholecystectomy. Biliary ductal dilatation has progressed. The common bile duct now measures 1.3 cm in diameter. Pancreas: Normal. No ductal dilation. Spleen: The spleen is enlarged measuring 12.1 x 9.1 x 13.7 cm. Adrenals: Normal. No mass. Kidneys and ureters: Normal. No hydronephrosis. Stomach and bowel: There is evidence of gastric bypass. Appendix: The appendix is unremarkable. Intraperitoneal space: There is a trace amount of free fluid. Vasculature: Unremarkable. No abdominal aortic aneurysm. Lymph nodes: Unremarkable. No enlarged lymph nodes. Bladder: Unremarkable as visualized. Reproductive: The uterus is not identified. Bones/joints: There is surgical fusion at L4-S1 level. Soft tissues: Unremarkable. IMPRESSION: 1. No acute abnormality identified. 2. Splenomegaly. 3. Additional findings as above. COMMENT: For patients at low risk (minimal or absent history of smoking and of other known risk factors), no routine follow-up is indicated. For patients at high risk (history of smoking or of other known r isk factors), consider optional CT at 12 months. (Betsy et al., Fleischner Society, 2017) THIS DOCUMENT HAS BEEN ELECTRONICALLY SIGNED BY JONN ROWE MDThis document has been electronically signed by Jonn Rowe MD on 10/28/2019 4:47 AM Name Value Range Interpretation Code Description Data Sumaya rce(s) Supporting Document(s) ID Date Data Source [id number] 11/02/2019 10:30:52 AM EST [facility] Service Cmnt XXX-Imp : LT HANDMicroorgan ism XXX Cult : No growth (qualifier value) Name Value Range Interpretation Code Description Data Sumaya rce(s) Supporting Document(s) ID Date Data Source [id number] 11/02/2019 10:30:52 AM [facility] Service Cmnt XXX-Imp : RT HANDMicroorgan ism XXX Cult : No growth (qualifier value) Name Value Range Interpretation Code Description Data Sumaya rce(s) Supporting Document(s) ID Date Data Source [id number] 10/28/2019 12:09:24 AM [facility] Name Value Range Interpretation Code Description Data Sumaya rce(s) Supporting Document(s) History and Physical [facility] RATGAm8qAhDCAzGy32/UXNaqSYEhj7YaAGfrGFb3CGetCNLzG7IdDTS1eI8fMQH7DMqOCkWyZjPbWFN0 lbm BzIzbQYiFsIKIuLvdYKuJkXFhfDyehhJTfQM1EsRH9TLIdJ25wSOVvSFGtB7SqDLG0LXT+Qc1PCNDhyT PqIN7SMkoR5Q4vtibLEu2aiM/WilGSJ5Univ+NjxTt7eHOM7NqJOWJ8sZcylFaGLsPoMW86725ghhSHm p9j3TlFvGeS+0hTaD11bn1PIi326ocQ/qWZZnsT/3P CPeVcT7253/M+bKYwF7k/0J6JW2xvNvJwg/Tr8k0Bn/4/tnhy1FJAl3rIuREc5uYsZKItIBteOth3rAm WQ3S17SjO/PqEx3uV/POfHpyeHJkbNu3/xd46U342qbS0+wOqOlQ5ePIp53tZ2+nRsTP9GIPakLjokS6 zhUXeZuUtNtlLaVjwnS7F1tk89C/BkSTs5wG+ShF+i oJeDMuIcGmr3AhVmBRYs1n1QzyH5yirGZfMpylWe/aTeU1sBeNqYHKfxs42SU9xy73YKqdnXKZ/hqX0p OvXRhn0A+GYLtSoCsBpXtHhQ2PX0qvoQK2LYal4s90MccXQ4wY3OB9PM8tGpwdzt+Zr9IUsSRcAdOYDw SezMH77/AmU7EkX+PtB/u87AdceSDkBIw7hRw3+X7Y hTmX90ANbsd7OhDfQkF2NbEdx30Zjfs7d6ebnD2U6bkMep4vS5ar3Fu0YcPRsHdiBPM1aUI8ie02JOio 1/ry+7HfD3QPNPrs5kFFcPgOFvgLujRiJm2zyVyT2BUOeN2eZzRueTzrXe8OigAWQc3oanhoGI7PuPn5 h7aldwj8jNC45VHI/CbRDHdKZKXMMGSH8/PJNEWnGE Hernandez+II4x/ft2JF9UFaBRCqbOiGxJTBWQuZm+OhD3WDM0NZFOl82agpT2Cfwq4deVdJsgah2hx4L+TCMit [file] AgICAgICAgICAgICAgICAgICAgICAgICAgICAgICAg NHSuLUXzPDLkXHZlHRTrZNEiHOSgQPYyLQWkKIBnFLCcVXHsTUBfWABuXCEwMZ6MVBLwNNCoLCSvTDKv ICAgICAgICAgICAgICAgICAgICAgICAgICAgICAgICAgICAgICAgICAgICAgICAgICAgICAgICAgICAg QQYqAKHjPZKcHVNhAROyYBOkFLTiHTWcUFHiZF6VFZ AgICAgICAgICAgICAgICAgICAgICAgICAgICAgICAgICAgICAgICAgICAgICAgICAgICAgICAgICAgIC RkCWOdCKFkFMVfOJPcVQOsUMGuBZLyMRQkLRDoVMTsZFNqSIIcUK5AVLUpNODnAJObHSAuTAMxEXHwGF AgICAgICAgICAgICAgICAgICAgICAgICAgICAgICAg SWFrKHPuQVPcLRVcPTCqYAFvFATsQCZnWJIsDFOcPJOoIKVpZLVeGSSgXLLhVYNbRA1OQXVhDUEsBGHe ICAgICAgICAgICAgICAgICAgICAgICAgICAgICAgICAgICAgICAgICAgICAgICAgICAgICAgICAgICAg ICAgICAgICAgICAgICAgICAgICAgICAgICAgICAgIA 0KICAgICAgICAgICAgICAgICAgICAgICAgICAgICAgICAgICAgICAgICAgICAgICAgICAgICAgICAgIC MuOTVyNUNkHNEoDRRjYUOgMLGrSZOzRHIuTVVqHHZaCFJiQRTdGRLyAT9HISQvQRSpEJXhKNBwYTZoHM AgICAgICAgICAgICAgICAgICAgICAgICAgICAgICAg CUQbJRGnZXSjXOLoDHKxTOHdLHBdNVUeWBItCEIsFCFyVTFdXIRiXNLqITOhKLQtUUJoXO0XRAOxVNBc ICAgICAgICAgICAgICAgICAgICAgICAgICAgICAgICAgICAgICAgICAgICAgICAgICAgICAgICAgICAg ICAgICAgICAgICAgICAgICAgICAgICAgICAgICAgIC KkYO3JHLIsWXWpFXBnQWUvDXCxFNKzBYZjJTYqGXXmZBPjWNFlIQEeAXOlKBHuONLgRLUeLGAuWHNzMU KeYVHbERRfFVWcQUGrIRIkBYSyEDIwRJKcXEZuPOCgEUTnMMCpRLTwIKHjQT1RQGMdCSZmZETzVUAcPW AgICAgICAgICAgICAgICAgICAgICAgICAgICAgICAg FIWoBEQnSVHgEXVeJYJrWXFrSIUjBHBuKQVnYOEcPSSdLWRcDGKdIONrAXQvVCUwPTVjZWDnHQ1QGK61 zJDlf6Z5QEOjVA6msbh/Yc3ZKGqzcbWsaCYsUX7RTzSfGC3foq4DCkQkZJ6nhf8KKFnTOrAtP1O3uRDc WNFiMPNPGuIfC12hKGceOq14IIomEURjOvYhWIq8Ca 6SAuJgF5qhKWPjFaT4UZNxKbM7NFDiYbJ5QCIcBeYnNTNuOTSlVWSaFKRQUIL0ESNhYvGtJuVsBIFsPA 6PKIEzB925ubHcVg1RFr0JGxHnVN3jex5XBnEnSLStIzkIXlu8ZHtcUZ5LeHLaqWDiHJVzTSTYKuAkM2 ydu5VnPxOlYWUVVMphJP0Cq5BnvDSsAZo+Sr5NLX8x v5ZwIRvxKIOfWA5zpw9ZKNkSWpGgF7IprBgmUEoqHQDthVBDKBGbDTFnDHRjSEnkHX3WGPI3YTJlFj6s VYZgCZU3KrU3IWUZGU3VYDSzGWZclNCbRAQjEVZAJD8XQLyePBQ8AMIoznZebWHxDZygZP7QLTVvgdZk MzQgMCBSDQo+Br3WRS8hn0RiEBoeJvMcPG4cwt9GNA cLBcRzD6I7cZMcJ4E8OHeuTs2LFUSqLSSqJrCtLOTZRIjrYQ8WSG7zjhC3HD8GtJJmBMOrVUEygPUvYN i1I29cmCKwPWneBQ0ASDP+Savannah+Hv8LSOQtSMTrJQLmOyNpEEAZIgSkQ6XyS8ULv0KcP4TyRI73rJqaux CxVTwzMY0CPD4gKZMsLYPOZS6VwHGfnG0qurBjUSBu OJWLJqUaP75fgRGtJDMnPSQxCQNaSg4AKOLyR9QyhrThmAvptgIsGQDeCKAVHU0AUAcdedFpjSQzbSco RF15ePevHI1BYk2DThRiOY0xca6XsKSvWi2RTIKcRq8WJFIhXKLbCTZhPWG6JXGsWyAtANrnYGJbFQBu NRY3OZSuPHNuVT8FZsGcKDKfQTJnOCmaEMAsRNDrlv 1AQIUaXCI8QIc2UmQaRGTwSDRfQLvfBSOkDFNuBGB6WPEbMIIcIH2JTgRuPYNhDBD8IwOqTMDqRORexu 1UNJDlMZLsKBknEoRgQYSjJXKcBMurGCAsFLZ8FZjwDXAhXQFbIJ1TBuDzWWUeRIfsIAGsULShXRHnfe 7AYZSgKHVrMCH7PIShOXUeOOYtANkyHFTaDECtLhS7 KGWbGRFhXM1HVmYfVAIvWTJzNOIgFILrWJRcfs7SUKZxUCBlXwE3NxKoYMRdBRFsOWkkQJOjXDQzUUA5 UEZcDKAtGC9FFmYrLYWlEaO0VLWyFVQuRUXliv7FLAPxLSZxKzk6OVGxJPUnUPKzUWjxDUPoSDT3VYb1 EPYuEXKsNX7DCgBrRHYgCiD5UMNxJZHiVSCruo8DNO TnKRTsTha8VGRmMJUzKRFvVOiuHKVdRSI9HTQcMLGbPDIeKX7OUjPlUXZzNqlaMCreQPRcUKTudx1HKO UqRHRsQBHsMVFuISPmJLHmTDedSOByNXY9WIt9EHOeAGQlIR8NCpSbHXPtFptiSXIkURAfSVJlfd7DJM LoWAOiMYT2TFUrFHZsPWDwAKcpWYRjKOPuFBP3TJYb JNCtRK7NNnXvTQFySUGeTDSjCTLpTDVvlk6GLGZdXJQ1SPT6CSYbJYAdVMZzMWkkARPcHBDaDhPvSZUp BVKmQO3XWnTcYESoIGP8QpBdRWRvXCBixg7XEDUwGOL9LhldKOGwXAWfHAWiAUmeHZXwTNWrVPS2MCNz OBLqIU3DSmYbDMFzXAIlAJKyRNQtTEYnie9SAULnNE M1PzZyPuWzEWNgZBYxTMjtUOLoTQD5GVfjXBNeKCSiYM1OFaXcFHNdBDIfWJZnKOLaWEFqcv3PNONwPZ A4YJV9WlKkMKNpXVDqMOl5njBkaTSeXNq5XG1VK0CbocXxGvhAZq1Qk264IXA4LRCzJf0NR1vrBv9kID WaLRMWXt6JGBz4LGUkLEj2XWUgWAHdTIPvVVofCieq INVjLXa9Bfq7Ujd+EDoqQzNuJQnhMXDtKvR3F8DbI2O1EIJaBqF9OCreKwmcWc0aWVLXQx1+DQpzdGFy rYqiFASLJyT3NNUiQKrbLGGMXu0N ID Date Data Source [id number] 10/27/2019 11:41:17 PM [facility] Name Value Range Interpretation Code Description Data Sumaya rce(s) Supporting Document(s) Glucose [Mass/volume] in Capillary blood by Glucometer 83 mg/dL 70- 140 [facility] ID Date Data Source [id number] 10/29/2019 12:22:07 PM [facility] Service Cmnt XXX-Imp : Microorganism XXX Cult : 30,000 col/mlIndigenous microorganisms including beta hemolytic Streptococcus group B.(NOTE)Additional testing was performed to rule out a pathogen. Name Value Range Interpretation Code Description Data Sumaya rce(s) Supporting Document(s) ID Date Data Source [id number] 10/27/2019 10:50:55 PM [facility] Name Value Range Interpretation Code Description Data Sumaya rce(s) Supporting Document(s) Color of Urine [facility] Clarity of Urine [facility] Specific gravity of Urine by Refractometry automated 1.020 1.003 -1.030 [facility] pH of Urine by Automated test strip 6.0 5.0-8.0 [facility] Protein [Mass/volume] in Urine by Automated test strip Neg [facility] Glucose [Mass/volume] in Urine by Automated test strip Neg [facility] Ketones [Mass/volume] in Urine by Automated test strip Neg [facility] Bilirubin.total [Presence] in Urine by Automated test strip Negative [facility] Hemoglobin [Presence] in Urine by Automated test strip Neg [facility] Leukocyte esterase [Presence] in Urine by Automated test strip Negative [facility] Nitrite [Presence] in Urine by Automated test strip Negati [facility] Leukocytes [#/area] in Urine sediment by Automated count 5 /HPF 0 -5 [facility] Erythrocytes [#/area] in Urine sediment by Automated count 0-3 [facility] Bacteria [#/area] in Urine sediment by Automated count Non e [facility] Epithelial cells.squamous [#/area] in Urine sediment by Auto mated count 1 /HPF None [facility] ID Date Data Source [id number] 10/27/2019 03:38:00 PM [facility] Name Value Range Interpretation Code Description Data Sumaya rce(s) Supporting Document(s) Lactate [Moles/volume] in Serum or Plasma 2.7 MMOL/L 0.2 - 2.2 H [facility] ID Date Data Source [id number] 10/27/2019 01:08:00 PM [facility] Value Range Interpretation Code Description Data Sumaya rce(s) Supporting Document(s) Influenza virus A Ag [Presence] in Nasopharynx by Immunoassa y NEGATIVE NORMAL: NEGATIVE [facility] Influenza virus B Ag [Presence] in Nasopharynx by Immunoassa y NEGATIVE NORMAL: NEGATIVE [facility] NEGATIVENEGATIVE PROCEDURAL CO NTROL VALID KIT LOT # _[id number] 10/27/19.1308.[place] . . . KIT EXP DATE _06/01/20 10/27/19.1308.[place] . . .The Influenza A & B assay is a rapid molecular in vitro diagnostic testutilizing an isothermal nucleic acid amplification technology for thequalitative detection of influenza A and B viral RNA.Negative results do not preclude influenza virus infection and should not beused as the sole basis for diagnosis, treatment or other patient managementdecisions. ID Date Data Source [id number] 10/27/2019 12:38:00 PM EST [facility] Name Value Range Interpretation Code Description Data Sumaya rce(s) Supporting Document(s) [facility] COL[facility] ramos NORMAL: Yellow [facility] CLARITY clear NORMAL: Clear [facility] Specific gravity of Urine by Test strip 1.020 1.001 - 1.030 [facility] pH 5 5 - 9 [facility] Glucose [Mass/volume] in Urine by Test strip NORM N[facility]AL: [facility] Bilirubin.total [Presence] in Urine by Test strip 1 NORMAL: Negative [facility] Ketones [Presence] in Urine by Test strip 5 NORMAL: Negative [facility] Protein [Mass/volume] in Urine by Test strip 100 NORMAL: Negat lucia [facility] Nitrite [Presence] in Urine by Test strip POS NORMAL: Negative [facility] BLOOD 10 NORMAL: Negative [facility] Leukocyte esterase [Presence] in Urine by Test strip 500 DELANO L: Negative [facility] Urobilinogen [Mass/volume] in Urine by Test strip 4 less tenisha n 1.0 mg/dL [facility] MICROSCOPIC See Below [facility] ital WBC 7 - 10 NORMAL: NONE SEEN A [facility] EPITHELIAL FEW NORMAL: NONE SEEN [facility] Bacteria [Presence] in Urine sediment by Light microscopy 1+ SMALL NORMAL: NONE SEEN [facility] Mucus [Presence] in Urine sediment by Light microscopy 2+ NOR MAL: NONE SEEN A [facility] ID Date Data Source [id number] 10/29/2019 07:32:00 AM EST [facility] [id number]@10/29/19 0732: Urine ID Charge add ed. RFLXG = CHGURID. Name Value Range Interpretation Code Description Data Sumaya rce(s) Supporting Document(s) Urine culture result Greater than 100,000 CFU/ML Group B strep n o senst done [facility] Bacteria identified in Urine by Culture [facility] [place] count 10,000 - 20,000 [facility] ID Date Data Source [id number] 10/29/2019 07:32:00 AM EST [facility] [id number]@10/29/19 0732: Urine ID Charge add ed. RFLXG = CHGURID. Name Value Range Interpretation Code Description Data Sumaya rce(s) Supporting Document(s) TRIMETHOPRIM/SULFAMETHOXAZOLE <2/38 Recio sceptible. Indicates for microbiology susceptibilities only. [facility] Amoxicillin+Clavulanate [Susceptibility] by Minimum inhibitory concentration (ZHANE) <8/4 Susceptible. Indicates for microbiology s usceptibilities only. [facility] Ampicillin [Susceptibility] by Minimum inhibitory concentration (ZHANE) >16 Resistant. Indicates for microbiology susceptibilities only. [facility] Ampicillin+Sulbactam [Susceptibility] by Minimum inhib itory concentration (ZHANE) <8/4 Susceptible. Indicates for microbiology suscepti bilities only. [facility] Cefotaxime [Susceptibility] by Minimum inhibitory concentration (ZHANE) <2 Susceptible. Indicates for microbiology susceptibilities only. [facility] Ceftriaxone [Susceptibility] by Minimum inhibitory concentration (ZHANE) <1 Susceptible. Indicates for microbiology susceptibilities only. [facility] Ciprofloxacin [Susceptibility] by Minimum inhibitory concentrati on (ZHANE) <1 Susceptible. Indicates for microbiology susceptibilities only. [facility] Ertapenem [Susceptibility] by Minimum inhibitory concentration ( ZHANE) <0.5 Susceptible. Indicates for microbiology susceptibilities only. [facility] Gentamicin [Susceptibility] by Minimum inhibitory concentration (ZHANE) <2 Susceptible. Indicates for microbiology susceptibilities only. [facility] Imipenem [Susceptibility] by Minimum inhibitory concentration (M IC) <1 Susceptible. Indicates for microbiology susceptibilities only. [facility] Nitrofurantoin [Susceptibility] by Minimum inhibitory concentrat ion (ZHANE) <32 Susceptible. Indicates for microbiology susceptibilities only. [facility] Tetracycline [Susceptibility] by Minimum inhibitory concentratio n (ZHANE) <4 Susceptible. Indicates for microbiology susceptibilities only. [facility] Tobramycin [Susceptibility] by Minimum inhibitory concentration (ZHANE) <4 Susceptible. Indicates for microbiology susceptibilities only. [facility] Levofloxacin [Susceptibility] by Minimum inhibitory concentratio n (ZHANE) <2 Susceptible. Indicates for microbiology susceptibilities only. [facility] Cefepime [Susceptibility] by Minimum inhibitory concentration (M IC) <8 Susceptible. Indicates for microbiology susceptibilities only. [facility] Piperacillin+Tazobactam [Susceptibility] by Minimum inhibitory concentration (ZHANE) <16 Susceptible. Indicates for microbiology s usceptibilities only. [facility] ID Date Data Source [id number] 10/29/2019 10:08:00 AM [facility] Name Value Range Interpretation Code Description Data Sumaya rce(s) Supporting Document(s) CULTURE URINE [facility] spital _CULTURE URINE_ Specimen site Narrative R [facility] Result: TEST PERFORMED AT [facility] [address] [place] [address] IA# [id number] SEE SCANNED REPORT ID Date Data Source [id number] 10/29/2019 08:18:00 AM EST [facility] [id number] LINE 0812 CALLED TO NEMO Thomas BY NÉSTOR, RESULTS READBACKGRAM STAIN = GRAM NEGATIVE RODSCALLED TO [facility] ([facility]) 10/28/19 AT 0220 BY [facility]DEN[facility]manuel. RESULT READBACK.GROWTH IN AEROBIC AND ANAEROBIC BOTTLES.SERRATIA MARCESCENS Name Value Range Interpretation Code Description Data Sumaya rce(s) Supporting Document(s) ID Date Data Source [id number] 10/29/2019 08:18:00 AM EST [facility] [id number] LINE [id number] CALLED TO NEMO Thomas BY NÉSTOR, RESULTS READBACKGRAM STAIN = GRAM NEGATIVE RODSCALLED TO [facility] ([facility]) 10/28/19 AT 0220 BY [facility]. RESULT READBACK.GROWTH IN AEROBIC AND ANAEROBIC BOTTLES.SERRATIA MARCESCENS Name Value Range Interpretation Code Description Data Sumaya rce(s) Supporting Document(s) TRIMETHOPRIM/SULFAMETHOXAZOLE <2/38 Recio sceptible. Indicates for microbiology susceptibilities only. [facility] Amoxicillin+Clavulanate [Susceptibility] by Minimum inhibitory concentration (ZHANE) >16/8 Resistant. Indicates for microbiology rani ceptibilities only. [facility] Ampicillin [Susceptibility] by Minimum inhibitory concentration (ZHANE) >16 Resistant. Indicates for microbiology susceptibilities only. [facility] Ampicillin+Sulbactam [Susceptibility] by Minimum inhib itory concentration (ZHANE) >16/8 Resistant. Indicates for microbiology susceptibi lities only. [facility] Cefotaxime [Susceptibility] by Minimum inhibitory concentration (ZHANE) <2 Resistant. Indicates for microbiology susceptibilities only. [facility] Ceftriaxone [Susceptibility] by Minimum inhibitory concentration (ZHANE) <1 Resistant. Indicates for microbiology susceptibilities only. [facility] Ciprofloxacin [Susceptibility] by Minimum inhibitory concentrati on (ZHANE) <1 Susceptible. Indicates for microbiology susceptibilities only. [facility] Ertapenem [Susceptibility] by Minimum inhibitory concentration ( ZHANE) <0.5 Susceptible. Indicates for microbiology susceptibilities only. [facility] Gentamicin [Susceptibility] by Minimum inhibitory concentration (ZHANE) <2 Susceptible. Indicates for microbiology susceptibilities only. [facility] Imipenem [Susceptibility] by Minimum inhibitory concentration (M IC) <1 Susceptible. Indicates for microbiology susceptibilities only. [facility] Tetracycline [Susceptibility] by Minimum inhibitory concentratio n (ZHANE) >8 Resistant. Indicates for microbiology susceptibilities only. [facility] Tobramycin [Susceptibility] by Minimum inhibitory concentration (ZHANE) <4 Susceptible. Indicates for microbiology susceptibilities only. [facility] Levofloxacin [Susceptibility] by Minimum inhibitory concentratio n (ZHANE) <2 Susceptible. Indicates for microbiology susceptibilities only. [facility] Cefepime [Susceptibility] by Minimum inhibitory concentration (M IC) <8 Susceptible. Indicates for microbiology susceptibilities only. [facility] Piperacillin+Tazobactam [Susceptibility] by Minimum inhibitory concentration (ZHANE) <16 Resistant. Indicates for microbiology rani ceptibilities only. [facility] ID Date Data Source [id number] 10/28/2019 02:22:00 AM EST [facility] [id number] HAYDEE LINECALLED TO [facility] ([facility]) 10/28/19 AT 0220 BY [employer]. RESULT READBACK.The [employer] BCID Panel is a qualitative multiplexednucleic acid-based test - PCRNormal results for each test is "Not detected"The BCID panel detects KPC,mecA,Cirilo/Bresistance,enterococcus,L.monocytogenes,Staphlococcus,S.aureus,St reptococcus,GRP B, GRP A, S.pneumoniae,A.baumanii,Enterobacteriaceae,E.cloacae c omplex,E.coli,K.oxytoca,K.pneumoniae,Proteus,S.marcescens,H.influenzae,N.meningi tidis,P.aeruginosa,C. albicans,C.glabrata ,C.krusei,C.parapsilosis,C.tropicalisTraditional Culture ID and Sensitivities wi ll still beperformed on all positive blood cultures.The [employer] BCID panel may not distinguish mixed cultureswhen two or more species of the same genus or organism groupare present in a specimen.This test is a qualitative test and does not provide aquantitative value for the organism(s)in the sample.Antimicrobial resistance can occur via multiple mechanisms.A Not detected result for the [employer] antimicrobialresistance gene assays does not indicate antimicrobialsusceptibility. Subculturing and standard susceptibilitytesting of isolates is requried to determine antimicrobialsusceptibility.Results from this test must be correlated with the clinicalhistory, epidemiological data,and otherdata available to theclinician evaluating the patient.Enterobacteriaceae speciesSerratia marcescens detected Name Value Range Interpretation Code Description Data Sumaya rce(s) Supporting Document(s) ID Date Data Source [id number] 10/29/2019 10:03:00 AM [facility] Name Value Range Interpretation Code Description Data Sumaya rce(s) Supporting Document(s) CULTURE BLOOD [facility] spital _CULTURE BLOOD_{ PRELIM G(-)RODS, S.MARCESCENSCALLED TO JUANIS Pathak 10/28/19 @0226 [facility] ID Date Data Source [id number] 10/27/2019 12:32:00 PM [facility] Name Value Range Interpretation Code Description [facility] Supporting Document(s) COMPREHENSIVE METABOLIC PANEL [facility] COMPREHENSIVE METABOLIC PANEL Sodium [Moles/volume] in Serum or Plasma 141 mEq/L 134 - 153 [facility] Potassium [Moles/volume] in Serum or Plasma 3.3 mEq/L 3.6 - 5.0 L [facility] Chloride [Moles/volume] in Serum or Plasma 105 mEq/L 98 - 107 [facility] Carbon dioxide, total [Moles/volume] in Serum or Plasma 23 MEQ/L 22 - 30 [facility] Glucose [Mass/volume] in Serum or Plasma 112 MG/DL 65 - 110 H [facility] BUN 9 MG/DL 7 - 21 [facility] Creatinine [Mass/volume] in Serum or Plasma 0.8 MG/DL 0.7 - 1.5 [facility] BUN/CREAT 11 8 - 27 [facility] Protein [Mass/volume] in Serum or Plasma 7.0 G/DL 6.3 - 8.2 [facility] Albumin [Mass/volume] in Serum or Plasma 3.9 G/DL 3.9 - 5.0 [facility] Globulin [Mass/volume] in Serum by calculation 3.1 GM/DL 2.4 - 3.2 [facility] A/G RATIO 1.3 0.8 - 2.0 [facility] Calcium [Mass/volume] in Serum or Plasma 9.5 MG/DL 8.4 - 10.2 [facility] Bilirubin.total [Mass/volume] in Serum or Plasma 0.8 MG/DL 0.2 - 1.3 [facility] Alkaline phosphatase [Enzymatic activity/volume] in Serum or Plasma 192 U/L 38 - 126 H [facility] Aspartate aminotransferase [Enzymatic activity/volume] in Serum or Plasma 25 U/L 5 - 40 [facility] Alanine aminotransferase [Enzymatic activity/volume] in Seru m or Plasma 13 U/L 7 - 56 [facility] Anion gap 3 in Serum or Plasma 13.0 mmol/L 8.0 - 16.0 [facility] AGE 39 yrs [facility] NON-AA GFR 84 mL/min [facility] gregg AFR AMER GFR 102 mL/min [facility] sp[facility] Male GFR In terprentation 20-49 yrs >60 mL/min Normal 50-59 yrs >56 mL/min Normal 60-69 yrs >49 mL/min Normal 70-79yrs >42 mL/min Normal 80 and above >35 mL/min Normal Female GFR Interpretation 20-39 yrs >60 mL/min Normal 40-49 yrs >58 mL/min Normal 50-59 yrs >51 mL/min Normal 60-69 yrs >45 mL/min Normal 70-79 yrs >39 mL/min Normal 80 and above >32 mL/min Normal ID Date Data Source [id number] 10/27/2019 12:29:00 PM [facility] Name Value Range Interpretation Code Description Data Sumaya rce(s) Supporting Document(s) Lipase [Enzymatic activity/volume] in Serum or Plasma 62 U/L 13 - 60 H [facility] ID Date Data Source [id number] 10/27/2019 12:30:00 PM [facility] Name Value Range Interpretation Code Description Data Sumaya rce(s) Supporting Document(s) CBC W/AUTOMATED DIFF [facility] COMPLETE BLOOD COUNT Leukocytes [#/volume] in Blood by Automated count 7.9 10^3/uL 4.2 - 1 1.0 [facility] Erythrocytes [#/volume] in Blood by Automated count 4.68 10^6/uL 4. 20 - 5.40 [facility] Hemoglobin [Mass/volume] in Blood 11.0 g/dL 12.0 - 16.0 L [facility] Hematocrit [Volume Fraction] of Blood by Automated count 36.7 % 3 7.0 - 47.0 L [facility] Erythrocyte mean corpuscular volume [Entitic volume] by Auto mated count 78.4 fL 81.0 - 101 L [facility] Erythrocyte mean corpuscular hemoglobin [Entitic mass] by Automated count 23.5 pg 27.0 - 34.0 L [facility] Erythrocyte mean corpuscular hemoglobin concentration [Mass/volume] by Automated count 30.0 g/dL 31.0 - 36.0 L [facility] Erythrocyte distribution width [Ratio] by Automated count 16.4 % 11.5 - 14.5 H [facility] Platelets [#/volume] in Blood by Automated count 382 10^3/uL 150 - 45 0 [facility] Platelet mean volume [Entitic volume] in Blood by Automated count 9.0 fL 7.4 - 10.4 [facility] Neutrophils/100 leukocytes in Blood by Automated count 94.0 % 37. 0 - 80.0 H [facility] Lymphocytes/100 leukocytes in Blood by Manual count 1.8 % 25.0 - 40.0 L [facility] Monocytes/100 leukocytes in Blood by Automated count 1.9 % 3.0 - 8.0 L [facility] Eosinophils/100 leukocytes in Blood by Automated count 1.3 % 0.0 - 7.0 [facility] Basophils/100 leukocytes in Blood by Automated count 0.5 % 0.0 - 2.5 [facility] %IG 0.5 % 0.0 - 0.0 [facility] % 0.0 - 0.0 [facility] al Neutrophils [#/volume] in Blood by Automated count 7.41 10^3/uL 2.00 - 6.90 H [facility] Lymphocytes [#/volume] in Blood by Automated count 0.14 10^3/uL 0.60 - 3.40 L [facility] Monocytes [#/volume] in Blood by Automated count 0.15 10^3/uL 0.00 - 0.90 [facility] Eosinophils [#/volume] in Blood by Automated count 0.10 10^3/uL 0.00 - 0.70 [facility] Basophils [#/volume] in Blood by Automated count 0.04 10^3/uL 0.00 - 0.20 [facility] #IG 0.04 10^3/uL 0.00 - 0.10 [facility] #NRBC 0.00 10^3/uL 0.00 - 0.00 [facility] ospital MANUAL DIFF SEE BELOW [facility] ital Segmented neutrophils/100 leukocytes in Blood by Manual count 93 % 37 - 80 H [facility] %LYMPH 5 % 25 - 40 [facility] %MON[facility] 1 % 3 - 8 [facility] %EOS 1 % 0 - 7 [facility] RBC MORPH NOT INDICATED [facility] ID Date Data Source [id number] 10/27/2019 11:59:00 AM [facility] Name Value Range Interpretation Code Description Data Sumaya rce(s) Supporting Document(s) Lactate [Moles/volume] in Serum or Plasma 3.2 MMOL/L 0.2 - 2.2 H [facility] ID Date Data Source [id number] 10/27/2019 01:42:00 PM [facility] Name Value Range Interpretation Code Description Data Sumaya rce(s) Supporting Document(s) C reactive protein [Mass/volume] in Serum or Plasma by High sensitivity method 34.55 MG/L 1.00 - 3.00 H [facility] CDC/S HS-CRP CUT-OFF: RELATIVE RISK: <1.0 mg/L Low 1.0 - 3.0 mg/L Average >3.0 mg/L High Optimally, the average of HS-CRP results repeated two weeks apart should be used for risk assessment. ID Date Data Source [id number] 10/27/2019 01:17:00 PM [facility] Name Value Range Interpretation Code Description Data Sumaya rce(s) Supporting Document(s) Prothrombin time (PT) 13.3 SECONDS 11.0 - 15.5 [facility] INR in Platelet poor plasma by Coagulation assay 1.00 0.93 - 1. 23 [facility] aPTT in Blood by Coagulation assay 34.3 SECONDS 24.8 - 36.7 [facility] \\BLDo\\INR INTERPRETATION\\BLDx\\ Therapeutic range for Coumadin and related oral anticoagulants. - International Normalized Ratio (INR): 2.0 - 3.0 for Venous Thrombosis, Pulmonary Embolus, Tissue heart valves, Acute RI Atrial Fibrillation, Valvular heart disease and recurrent Systemic Embolism. - International Normalized Ratio (INR): 2.5 - 3.5 for Mechanical Prosthetic valve. \\BLDo\\PTT INTERPRETATION\\BLDx\\ Critical results for patients not on therapy: >50 seconds Critical results for patients on therapy: >119 seconds Therapeutic range for patients on therapy: 58 - 90 seconds Coag walt dies from line draws may not be accurate due to Heparin and other interferences. ID Date Data Source Type and Screen (GEL) Manual 10/16/2019 12:00:00 AM EST eCW1 ([facility]) Name Value Range Interpretation Code Description Data Sumaya rce(s) Supporting Document(s) NEGATIVE AB SCREEN GEL MANUAL eCW1 ([facility]) O NEGATIVE BLOOD TYPE eCW1 ([facility]) ID Date Data Source Basic Metabolic Profile (BMP) 10/16/2019 12:00:00 AM EST eCW 1 ([facility]) Name Value Range Interpretation Code Description Data Sumaya rce(s) Supporting Document(s) 95 70-100 GLUCOSE, FASTING eCW1 ([facility]) 0.66 0.55-1.30 CREATININE FOR GFR eCW1 ([facility]) 3 7-18 BLOOD UREA NITROGEN eCW1 ([facility]) 4.5 3.5-5.1 POTASSIUM SERUM eCW1 ([facility]) > 60.0 >58 GLOMERULAR FILTRATION RATE eCW 1 ([facility]) 139 136-145 SODIUM LEVEL eCW1 ([facility]) 104 98-107 CHLORIDE LEVEL eCW1 ([facility]) 24 21-32 CARBON DIOXIDE LEVEL eCW1 ([facility]) 8.6 8.5-10.1 CALCIUM LEVEL eCW1 ([facility]) ID Date Data Source CBC 10/16/2019 12:00:00 AM EST eCW1 ([facility]) Name Value Range Interpretation Code Description Data Sumaya rce(s) Supporting Document(s) 7.5 12.0-15.5 HEMOGLOBIN eCW1 ([facility]) 7.0 4.0-10.0 WHITE BLOOD COUNT eCW1 ([facility]) 26.1 36.0-47.0 HEMATOCRIT eCW1 ([facility]) 3.27 4.00-5.40 RED BLOOD COUNT eCW1 ([facility]) 28.7 32.0-36.5 MEAN CORPUSCULAR HGB CONC eCW1 ([facility]) 79.8 80.0-96.0 MEAN CORPUSCULAR VOLUME e CW1 ([facility]) 263 150-450 PLATELET COUNT, AUTOMATED eCW1 ([facility]) 22.9 27.0-33.0 MEAN CORPUSCULAR HEMOGLOB IN eCW1 ([facility]) 16.4 11.5-14.5 RED CELL DISTRIBUTION WID TH eCW1 ([facility]) ID Date Data Source [id number] 10/06/2019 04:22:21 PM [facility] Name Value Range Interpretation Code Description Data Sumaya rce(s) Supporting Document(s) Progress Note [facility] XWLZOs3oVuXKQzHa67/TPJocNYBne5IuYCjxANu2HSzhFEWhU9CbFUK0cS6rVNT1EYkTIsBsDAgiKuL9 lbm [file] K9XWI8jSWyIs8FUgL4HuIRVvYtCJ1IBJz= ID Date Data Source [id number] 10/06/2019 01:22:42 PM EST [facility] Name Value Range Interpretation Code Description Data Sumaya rce(s) Supporting Document(s) Progress Note [facility] DXGWYw2mOxMEAwTu07/WBOzcWLPui6HvMCarWXj0LYhbQIWdR6OvMCI1gC0yEVV2ZJcAYtWgQGoaApF4 lbm [file] ICAgICAgICAgICAgICAgICAgICAgICAgICAgICAgICAgICAgICAgICAgICAgICAgICAgICAgICAgICAg ICAgICAgICAgICAgICAgDQogICAgICAgICAgICAgIC AgICAgICAgICAgICAgICAgICAgICAgICAgICAgICAgICAgICAgICAgICAgICAgICAgICAgICAgICAgIC AgICAgICAgICAgICAgICAgICAgICAgICAgDQogICAgICAgICAgICAgICAgICAgICAgICAgICAgICAgIC AgICAgICAgICAgICAgICAgICAgICAgICAgICAgICAg ICAgICAgICAgICAgICAgICAgICAgICAgICAgICAgICAgICAgDQogICAgICAgICAgICAgICAgICAgICAg ICAgICAgICAgICAgICAgICAgICAgICAgICAgICAgICAgICAgICAgICAgICAgICAgICAgICAgICAgICAg ICAgICAgICAgICAgICAgICAgDQogICAgICAgICAgIC AgICAgICAgICAgICAgICAgICAgICAgICAgICAgICAgICAgICAgICAgICAgICAgICAgICAgICAgICAgIC AgICAgICAgICAgICAgICAgICAgICAgICAgICAgDQogICAgICAgICAgICAgICAgICAgICAgICAgICAgIC AgICAgICAgICAgICAgICAgICAgICAgICAgICAgICAg ICAgICAgICAgICAgICAgICAgICAgICAgICAgICAgICAgICAgICAgDQogICAgICAgICAgICAgICAgICAg ICAgICAgICAgICAgICAgICAgICAgICAgICAgICAgICAgICAgICAgICAgICAgICAgICAgICAgICAgICAg ICAgICAgICAgICAgICAgICAgICAgDQogICAgICAgIC AgICAgICAgICAgICAgICAgICAgICAgICAgICAgICAgICAgICAgICAgICAgICAgICAgICAgICAgICAgIC AgICAgICAgICAgICAgICAgICAgICAgICAgICAgICAgDQogICAgICAgICAgICAgICAgICAgICAgICAgIC AgICAgICAgICAgICAgICAgICAgICAgICAgICAgICAg ICAgICAgICAgICAgICAgICAgICAgICAgICAgICAgICAgICAgICAgICAgDQogICAgICAgICAgICAgICAg ICAgICAgICAgICAgICAgICAgICAgICAgICAgICAgICAgICAgICAgICAgICAgICAgICAgICAgICAgICAg XFPoFXQnZTIgPTOcPWUlOQLcTPWzJMWaSQf1M3oyXF RsTNZwDG7eOSe6Lh6+RZvDXeFsJPQ1coHjwZ4JCO3cy9HcCCtfKYAlf0FlNPu5UO7TGFDtQEaaHG1PVT zpld1PBBDmHUZieOVRc5nfMlQiBXH1UHXeVehvZD0ZJBSkA0oxszSwHFLjYPXTUIydRGRWIIvxQQGWUR PgCJExBrYtNpZmMOWwNZAjDAJAWX6HCqAaL5KwpM12 IDYNCj4+OSqqntSxYbcEEpDlPORtg5JnWKa8JC4REIMlYjkbv9FiYIVbOWCHXCaxME6BGPO5CPGwBAMt Rp0NBVAwA205coMhMX6RPm0QHpHfNB8wvd6XUSJnWKBkLiqLQrt1BDyoEB6RpFRkATiUvl7wovWsaiBZ z2EtzaGayCYVpRylSJWYPLD3EP0pgZHfVJQECGvpD1 MGVRP6LLGbKsM2BnAxFHwdYKR5WTBmYY2tHSzoLE5EJMH2FNrfMXVpUYGvQ4oOPpAyTUMiLXWplYxyIW 4KMtYvA0YakaDwlZJ3BQPlMHMUIw5+XQjkacLhDigBAhRkNDLlu8JcTKr7MP8RRVHrYHenYU3VSVPcrM 6nMPkeSH6WLwXdMEEsQJYENnJhQ98mwPWqCVd5K1Vy YmVkZGVkRmlsZXMgPDwvTmFtZXMgWyBdDQogID4+ID4+NUlnMJ5FRMrlawVtMJVaFs5NLBJaQPZiDD7e QAEfZTCrM9G7jMdaLGBHLpTnO5xzvanxHG7mBAYeS194dGymphWoSAXoUONwVd2RGTPrOII4IMSvyTHe KzekQRRBXSdmKF5GnUBrYPN6mN1pHDkdYSIzTOZnJ2 hJRoRmlHzsHO79qAxfcuOhhYEiWIt+Bc0BKJ6pr7HtGIu7acHhKKquCLBuPZhyOKKpGXPeDRKeKCY9PK W4VRQKKbZuETDpBTUzTOmrPPPbELOdnw8DRADpCZC3IqA2HQVbXOMaXTSpJKktMHSdYFN0SHVnFDRoFQ ScNI6BSfMvDLKaNHHiBJphHYQzNYXdgb4KBRWbZTQk HrX3WFDqGVYaENCbLJztZLCmRAFxVdN0MOQeVCXqLA3ETdUaJYLdWNclMPRgOLLdLYEmnn4XUNOcJFXb ZiR3WvHhZMHtRJGuGBtsGHYqAKQxKmjkFKFmBVTaKU9KTzNyCEXvDOL6ChMeCLObITBmxz1JACWqGROc GXN8NLTkRRIqSPRsPJiyJYTgBTV3QtM2SBTtBSBvRR 5HBuHjNMOcFSpcTariYGJiTCUlkw9XNVQdWCHrJSXbIhKqDMBgDIHcAUffFJQhIVH7FCa9ROTcRVRqSG 8GIhZcPHFbOyRkYXVtPYShYFStli4EGTUoNTRbKQM7RoEcPXMyKXRgHBirQVIrWRYbJvC2MLNoUZYvVY 9UIcEdKIJdPuX6PqHbQGThHGEhoj6CKRSoJIIvVqB3 IJVcOJWzHEPiLQncDBFxSOBfIjzhRINiULQbAC3LQpMhFIDcMoM3AMGaAHJaGPPrlx0RORNtWEYvFPTh QDRjMXKsHGPyRMerCHEdYEM9FiG3LGBxLZDqTN1MYaDuHFPiQnP5ITIzDELhGBGkcm6WGFZpVYTsBRW7 SKQeQHQeEOZgMOyqHQDrQVH8IwZrKMRcDYOgVY2GVu MvNPOvKvNvWXJtFUGlFUGsug8WVQLcCOHcLlL9ByFiSTOiXBNdCGdvCRUcEGE6MGLiPSYjGJLbFI6MFy PwOMLbFpw7IJThDHSaSHZoqy3BVDSyWLRuToV7MHPmJINrECKePPkaPPIkZFB9MOJ6KVLbPPTbYW3EKw AhLLIyBNAtIZgqQJMhZDOwlo1QKKIsYIO5FuXdJAHv VDApHUDvWOsvEIShGEXdZDIkJTAbWFHdWC8UYlOyCUXwOOLmBIJzSMQeNWXtjs0KVTGnHBG6EaW8AdWo YGBrHONvKUbhWMOxIYAtPqyhFLCiICHlFP3TGoVmPWJlYZWhWnOcNIYmQIXfdd1PCTHsMHZ9YZQkXZOk CMUbIVLxXVzhHOJoLXR9SvisLIVcDBXzVY0XLbUcWH laGAJQAcb3ULymK7r2IAA9Uf4CQ8Kbb2JpAVSqFMPHMIwnNS6wkjWwJXIuRt6ZE6iOWksyHgHzVLO6XT RiYVDiVhBwWPShRjV0HsHwVVUkPOW5Kk1dXXXzLLL2CRrnN8WjNDZfVDJzITPgFovgZxU3ChL8WMNwOq VaDY5NCx4WSgL3ZFP4pWVgIr6ZPZN4RsPBQhJxED0CFLi= ID Date Data Source [id number] 10/01/2019 12:09:48 PM [facility] Name Value Range Interpretation Code Description Data Sumaya rce(s) Supporting Document(s) Discharge Summary [facility] MWJDSr6uGeNWEbLs26/NARvpXXBgo5RlYScrUTm6DKsqLBQmH0KqZKM3hX2jEWV3OSyNKwJpKXxoZlRr lbm [file] [id number] ID Date Data Source [id number] 10/01/2019 03:34:29 AM [facility] Name Value Range Interpretation Code Description Data Sumaya e(s) Supporting Document(s) Leukocytes [#/volume] in Blood by Automated count 7.0 10*3/uL 4-10 [facility] Erythrocytes [#/volume] in Blood by Automated count 3.42 10*6/uL 4.1- 5.3 L [facility] Hemoglobin [Mass/volume] in Blood 8.7 g/dL 11.5-15.5 [facility] Hematocrit [Volume Fraction] of Blood by Automated count 26.6 % 3 6-45 L [facility] Erythrocyte mean corpuscular volume [Entitic volume] by Auto mated count 77.8 fL 80-96 L [facility] Erythrocyte mean corpuscular hemoglobin [Entitic mass] by Automated count 25.5 pg 27-33 L [facility] Erythrocyte mean corpuscular hemoglobin concentration [Mass/volume] by Automated count 32.7 g/dL 32.0-36.0 [facility] distribution width [Ratio] by Automated count 17.3 % 11.5-14.5 H [facility] Platelets [#/volume] in Blood by Automated count 296 10*3/uL 150-400 [facility] Differential cell count method - Blood [facility] Neutrophils/100 leukocytes in Blood by Automated count 64 % [facility] Lymphocytes/100 leukocytes in Blood by Automated count 16 % [facility] Monocytes/100 leukocytes in Blood by Automated count 10 % [facility] Eosinophils/100 leukocytes in Blood by Automated count 9 % [facility] Basophils/100 leukocytes in Blood by Automated count 1 % [facility] Neutrophils [#/volume] in Blood by Automated count 4.56 10*3/uL 1.8-7 .0 [facility] Lymphocytes [#/volume] in Blood by Automated count 1.15 10*3/uL 1.2-4 .0 L [facility] Monocytes [#/volume] in Blood by Automated count 0.68 10*3/uL 0-0.8 [facility] Eosinophils [#/volume] in Blood by Automated count 0.61 10*3/uL 0-0.5 H [facility] Basophils [#/volume] in Blood by Automated count 0.03 10*3/uL 0-0.2 [facility] Nucleated erythrocytes/100 leukocytes [Ratio] in Blood by Automated count 0 /100{WBCs} 0-0 [facility] ID Date Data Source [id number] 10/01/2019 04:59:52 AM [facility] Name Value Range Interpretation Code Description Data Sumaya rce(s) Supporting Document(s) Albumin [Mass/volume] in Serum or Plasma by Bromocresol green (BCG) dye binding method 3.9 g/dL 3.5-5.2 [facility] Bilirubin.total [Mass/volume] in Serum or Plasma 0.4 mg/dL <1.2 [facility] Bilirubin.direct [Mass/volume] in Serum or Plasma <0.3 [facility] Alkaline phosphatase [Enzymatic activity/volume] in Serum or Plasma 73 U/L 35-104 [facility] Aspartate aminotransferase [Enzymatic activity/volume] in Serum or Plasma 18 U/L <32 [facility] Alanine aminotransferase [Enzymatic activity/volume] in Seru m or Plasma 10 U/L <33 [facility] Protein [Mass/volume] in Serum or Plasma 6.2 g/dL 6.4-8.3 L [facility] ID Date Data Source [id number] 10/01/2019 04:59:52 AM [facility] Name Value Range Interpretation Code Description Data Sumaya rce(s) Supporting Document(s) Magnesium [Mass/volume] in Serum or Plasma 2.2 mg/dL 1.6-2.6 [facility] ID Date Data Source [id number] 10/01/2019 04:59:52 AM [facility] Name Value Range Interpretation Code Description Data Sumaya rce(s) Supporting Document(s) Phosphate [Mass/volume] in Serum or Plasma 4.0 mg/dL 2.5-4.5 [facility] ID Date Data Source [id number] 10/01/2019 05:54:33 AM [facility] Value Range Interpretation Code Description Data Sumaya rce(s) Supporting Document(s) Bicarbonate [Moles/volume] in Serum 29 mmol/L 22-29 [facility] Chloride [Moles/volume] in Serum or Plasma 103 mmol/L 98-107 [facility] Creatinine [Mass/volume] in Serum or Plasma 0.60 mg/dL 0.50-0.90 [facility] Glucose [Mass/volume] in Serum or Plasma 114 mg/dL 70-140 [facility] Potassium [Moles/volume] in Serum or Plasma 4.5 mmol/L 3.4-5.1 [facility] Sodium [Moles/volume] in Serum or Plasma 141 mmol/L 136-145 [facility] Urea nitrogen [Mass/volume] in Serum or Plasma 20 mg/dL 6-20 [facility] Confirmed Anion gap 3 in Serum or Plasma 9 mmol/L 8-15 [facility] Osmolality of Serum or Plasma by calculation 295 mosm/kg 275-300 [facility] Creatinine/Urea nitrogen [Mass Ratio] in Serum or Plasma 33 [facility] Calcium [Mass/volume] in Serum or Plasma 9.1 mg/dL 8.6-10.0 [facility] Glomerular filtration rate/1.73 sq M pre dicted among non-blacks [Volume Rate/Area] in Serum or Plasma by Creatinine-based formula (MDRD) >6 0 [facility] Glomerular filtration rate/1.73 sq M pre dicted among blacks [Volume Rate/Area] in Serum or Plasma by Creatinine-based formula (MDRD) >60 [facility] ID Date Data Source [id number] 09/30/2019 10:45:16 AM [facility] Value Range Interpretation Code Description Data Sumaya rce(s) Supporting Document(s) Prealbumin [Mass/volume] in Serum or Plasma 26.3 mg/dL 20.0-40.0 [facility] ID Date Data Source [id number] 09/30/2019 04:12:09 AM [facility] Name Value Range Interpretation Code Description Data Sumaya rce(s) Supporting Document(s) Leukocytes [#/volume] in Blood by Automated count 5.5 10*3/uL 4-10 [facility] Erythrocytes [#/volume] in Blood by Automated count 3.04 10*6/uL 4.1- 5.3 L [facility] Hemoglobin [Mass/volume] in Blood 7.7 g/dL 11.5-15.5 [facility] Hematocrit [Volume Fraction] of Blood by Automated count 23.8 % 3 6-45 L [facility] Erythrocyte mean corpuscular volume [Entitic volume] by Auto mated count 78.4 fL 80-96 L [facility] Erythrocyte mean corpuscular hemoglobin [Entitic mass] by Automated count 25.3 pg 27-33 [facility] Erythrocyte mean corpuscular hemoglobin concentration [Mass/volume] by Automated count 32.3 g/dL 32.0-36.0 [facility] E[facility]throcyte distribution width [Ratio] by Automated count 16.8 % 11.5-14.5 H [facility] Platelets [#/volume] in Blood by Automated count 276 10*3/uL 150-400 [facility] Differential cell count method - Blood [facility] Neutrophils/100 leukocytes in Blood by Automated count 65 % [facility] Lymphocytes/100 leukocytes in Blood by Automated count 17 % [facility] Monocytes/100 leukocytes in Blood by Automated count 9 % [facility] Eosinophils/100 leukocytes in Blood by Automated count 8 % [facility] Basophils/100 leukocytes in Blood by Automated count 1 % [facility] Neutrophils [#/volume] in Blood by Automated count 3.65 10*3/uL 1.8-7 .0 [facility] Lymphocytes [#/volume] in Blood by Automated count 0.92 10*3/uL 1.2-4 .0 L [facility] Monocytes [#/volume] in Blood by Automated count 0.52 10*3/uL 0-0.8 [facility] Eosinophils [#/volume] in Blood by Automated count 0.44 10*3/uL 0-0.5 [facility] Basophils [#/volume] in Blood by Automated count 0.03 10*3/uL 0-0.2 [facility] Nucleated erythrocytes/100 leukocytes [Ratio] in Blood by Automated count 0 /100{WBCs} 0-0 [facility] ID Date Data Source [id number] 09/30/2019 04:54:23 AM [facility] Name Value Range Interpretation Code Description Data Sumaya rce(s) Supporting Document(s) Albumin [Mass/volume] in Serum or Plasma by Bromocresol green (BCG) dye binding method 3.5 g/dL 3.5-5.2 [facility] Bilirubin.total [Mass/volume] in Serum or Plasma 0.4 mg/dL <1.2 [facility] Bilirubin.direct [Mass/volume] in Serum or Plasma <0.3 [facility] Alkaline phosphatase [Enzymatic activity/volume] in Serum or Plasma 69 U/L 35-104 [facility] Aspartate aminotransferase [Enzymatic activity/volume] in Serum or Plasma 12 U/L <32 [facility] Alanine aminotransferase [Enzymatic activity/volume] in Seru m or Plasma 7 U/L <33 [facility] Protein [Mass/volume] in Serum or Plasma 5.5 g/dL 6.4-8.3 L [facility] ID Date Data Source [id number] 09/30/2019 04:54:23 AM [facility] Name Value Range Interpretation Code Description Data Sumaya rce(s) Supporting Document(s) Bicarbonate [Moles/volume] in Serum 30 mmol/L 22-29 H [facility] Chloride [Moles/volume] in Serum or Plasma 106 mmol/L 98-107 [facility] Creatinine [Mass/volume] in Serum or Plasma 0.59 mg/dL 0.50-0.90 [facility] Glucose [Mass/volume] in Serum or Plasma 97 mg/dL 70-140 [facility] Potassium [Moles/volume] in Serum or Plasma 3.9 mmol/L 3.4-5.1 [facility] Sodium [Moles/volume] in Serum or Plasma 142 mmol/L 136-145 [facility] Urea nitrogen [Mass/volume] in Serum or Plasma 12 mg/dL 6-20 [facility] Anion gap 3 in Serum or Plasma 6 mmol/L 8-15 L [facility] Osmolality of Serum or Plasma by calculation 294 mosm/kg 275-300 [facility] Creatinine/Urea nitrogen [Mass Ratio] in Serum or Plasma 21 [facility] Calcium [Mass/volume] in Serum or Plasma 8.3 mg/dL 8.6-10.0 L [facility] Glomerular filtration rate/1.73 sq M pre dicted among non-blacks [Volume Rate/Area] in Serum or Plasma by Creatinine-based formula (MDRD) >6 0 [facility] Glomerular filtration rate/1.73 sq M pre dicted among blacks [Volume Rate/Area] in Serum or Plasma by Creatinine-based formula (MDRD) >60 [facility] ID Date Data Source [id number] 09/30/2019 04:54:23 AM [facility] Value Range Interpretation Code Description Data Sumaya rce(s) Supporting Document(s) Magnesium [Mass/volume] in Serum or Plasma 1.9 mg/dL 1.6-2.6 [facility] ID Date Data Source [id number] 09/30/2019 04:54:23 AM [facility] Value Range Interpretation Code Description Data Sumaya rce(s) Supporting Document(s) Phosphate [Mass/volume] in Serum or Plasma 4.6 mg/dL 2.5-4.5 H [facility] ID Date Data Source [id number] 09/30/2019 07:13:34 AM [facility] Value Range Interpretation Code Description Data Sumaya rce(s) Supporting Document(s) Prealbumin [Mass/volume] in Serum or Plasma 20.0-40.0 [facility] LEYDI 4N NOTIFIED AT 0712 BY [id number] ID Date Data Source [id number] 09/29/2019 06:23:31 PM [facility] Value Range Interpretation Code Description Data Sumaya rce(s) Supporting Document(s) Phosphate [Mass/volume] in Serum or Plasma 4.2 mg/dL 2.5-4.5 [facility] ID Date Data Source [id number] 09/29/2019 04:00:25 PM [facility] Value Range Interpretation Code Description Data Sumaya rce(s) Supporting Document(s) History and Physical [facility] YJXESk7wAxVVRmHt87/SFAzoMYNna0KeFEkqHRl2GDstTUYrI5PrBVM6xG6tLZO6IUyKVnJmEIdaXhRf [facility] [file] AgICAgICAgICAgICAgICAgICAgICAgICAgICAgICAgICAgICAgICAgICAgICAgICAgICAgICAgICAgIC EdEHVpFECaFYSoCQGbMLKfITQhCY2KRFKrNWMoBRQq ICAgICAgICAgICAgICAgICAgICAgICAgICAgICAgICAgICAgICAgICAgICAgICAgICAgICAgICAgICAg YHQwWWVjWZDeBTQuZHTtGNIwHAEiLTOtERLuJWYsGK7VXMCsCSAzXTSsGCUjKOQrDZBqKUFuIOSsMIWl ICAgICAgICAgICAgICAgICAgICAgICAgICAgICAgIC SeMJWvCAWsOIBmPQRnYYVzQLKvIQTeZXQbSVJrQZSzPHZdJBLpPUQoBV6GMSMhTZFsPQElKYZiHEFvHJ AgICAgICAgICAgICAgICAgICAgICAgICAgICAgICAgICAgICAgICAgICAgICAgICAgICAgICAgICAgIC KhNQNlOMAcCQUrIWXdDLHzJMLqCSUmID1ANJTvUPTj ICAgICAgICAgICAgICAgICAgICAgICAgICAgICAgICAgICAgICAgICAgICAgICAgICAgICAgICAgICAg IRUsOBGyBNJoMTZcCUQoXFTrCHTfYPTyQGRtWHToKBVyCU0GNXYjRGTsGWNvYTSgXYSdGEWzLCSrSPXn ICAgICAgICAgICAgICAgICAgICAgICAgICAgICAgIC YvOSEiPQSuFMOhIYNiKVVgHJJpTKXiHKSyFPCfUTPiTTDfZIAyLDRnBOKtDX0UJVRpYTMcFVDcRNFyZX AgICAgICAgICAgICAgICAgICAgICAgICAgICAgICAgICAgICAgICAgICAgICAgICAgICAgICAgICAgIC QkHGRwGPJxRIPtMABuDOSlIGGfDBAbPZNjTC1UBHHt ICAgICAgICAgICAgICAgICAgICAgICAgICAgICAgICAgICAgICAgICAgICAgICAgICAgICAgICAgICAg UYNwQIAfHMMoYSAxAXMrJRCgFDBbWYHkFUPeLQXpGXHqGYMoMQ0SPEWsPKNuJKKcGKLfILAbKOBnHYSk ICAgICAgICAgICAgICAgICAgICAgICAgICAgICAgIC JgYVVqKOKlPKZzIPBtWZLfTFZnLYVlIRVvCHIhUGVoKHJlZTPxSGNgQSDsKSOvNK4BAPMkDGJjPQToLC AgICAgICAgICAgICAgICAgICAgICAgICAgICAgICAgICAgICAgICAgICAgICAgICAgICAgICAgICAgIC LmGTVeLZZrWGXtQHHuYLBpAGJjZTHiQPAiKGCnJQ4N AJ04wKEyc8G4LUMlEQ9qavl/Ay9AGYudcuYjuXRvMF4KTcMnLD4ymk3SOaYtLR4qia3YDTnQLjQpR0F3 aNBdWAThXOWIZeQxY64fEJktEv22WOplOQWhReGrYJk8Vj1GOmRjQ7phHJYlHyG8CPGvHhW4KNWaFhL9 OPLtKeTiVGXaFMVgDPMzGJCVRGT2EKCcZyEzFnSfQS ViTG8JRIFmT006wfHpJz9BOw4TGlUzMK3ngm5ZOrdmUFFzTqgFKbo9YLmcDE2ZaLIdcRT6OLDdQALIDr TwO1tea7IoESDpQHOMBXuqRX1Rs3PbpCKgKAg+Xx1GEO8hx3DtUVx4XCGjSF5rlo7KFIsVQdElP8AooC xnSRskLJHsuHYCSE6ilQBclcHDWIIwpGOjFONQKWLv nVTnSx40AoZmXXmcBSs6XkGoFS1gGFzdAQ8DUFZ2NQtrKQKdYNNaX4fRFuDqYYExOQLwnDtmAA8XTpKg F3WpwdMskBXoYFNmYJFIPd5+WWqthgVyZqoAUkDnQRHsp1SiASp5EN1SJFGmRZuoHG3RASVuaB5uKVgl TN8OXcSfDoCoSTXGJzGuB97zsFAfVCu7X4VbNnJqEJ VkRmlsZXMgPDwvTmFtZXMgWyBdDQogID4+ID4+EXhzTX7HUKyxidZiAODkCy8KBMGmAUVlQW7iKXYgOF AgN5L6vIrpIQGMUsXqN7sazvdnCT5bDIYnS943gZkcbaWuHDU7ALXvDk0ZATRmKCL1OUXquLXwEnqoXP HVCZacMU2BfKHiHLS5aO7lMKskOMHcLAZnT1hUJeNi wOfjBE45dSumdjSreDZjGSu+Sw6UAX5ef8YtFHj4yuXjVHklGKDqZUooAEUhEZFcNYFsAAE4FNS7YOPA BrOrDYUuQGWaLWhwIIEhMFXlqr2RNFYcGRL7MlnyZNTmETVzRMGwIVbdQTJfOHC7ZYsmUQDhRGKqTF6Z XfXnVXUpFXIoUYrfGHIyXFEogt5NMNUeHGHoNHVfHh HrWHNpBRQdNWnxMUAyPBE0LZEjDNOuHTDoWW4COpPeBXJsEUw3NvNoDTIvCLUnse1HQMPzBLOgKjn4II NgGLWgMJZaHTwsLCShEPOrDhsfUNHyBZXcTY4WPfVpTJUyXVC8CPOnBCBsZBYznb7MBDYnDTAmOEB7NH FmYJJeYXLnLHhzZTHsPQD6ZHG5LYWfIWFrOM1WGiAb EYXjZTvxYTOrVXNuTJAwcn8TMXIjZOPyUYL1YuFgHNGsWXEmRFgkWJNdZIFjKJK4COYjXMFjOP4GZxVj FODsAhV2TfRuYSGfIDWyyu7YCJZzYOHfRKLaToJhFKKrZAPeUUhlKNEmXNO6OKWoNMPwUPVpTH5XApYc LBFxEuTqZfEcXJNcIFVvac6TLOLgXOEvQMI4OWWzOJ KlXBXnIJjuJFPjHER0OpVbEOXyMYSrGQ2MYrVvUGToDpB4SWVsCGWsIGWxud1JHWSxTUMfFbdmMLDyTI KkXHWuXMjsKWYnKDO5OFDxJMUjNMZjTO4JBhYoDOXsMlteFfHzSQSxFNMooq6PFEVjHQQtNQJ1QPXkDG JqRXFdIColNNQpQZR9PKKiXZQtPOVqUL9IZgBtYYKa Gpu4KdgdIDPaBUOant1KIOHxGDH1CMI6OPHuJGNfYMNvANjbNSBdUDQsReW7JITpKEJiPR8XRiGlCFCt UMC9SDQvSZAkJQChfj7CVVRuLQG3OFmiDHAbGGKwXPGdUMcyGWGiJJQqYfpjBFIbTQTlIS6OLlTlUFCr MNJ6WdOdUHCbZRLgtg8XJMNhVGX2HrC4HJWqANLbXP AmRCafOXNrLXNlAeH3OSHwOYRuVX5XZaRtLUCgHeN9CHgvKCMlZCLlaz1VKSIaPGJ6LZE4ZWVfMCBmJN DpLSanINQlORR1EfH6JVIsYFFdYS3ZMtOdYDDeBkK0RZfvXTDcFNDfgr4YIQQdCWR7YOahASPlLNMyNH YlRLq7knSsaORrIGb4MB1AW3VkirNjYJZKXx9Oo265 EBWlCZUmPn0ZV3ovNp7vFEFuDVRLZj3XKVx9NcDmVSw1N4A9KTT4OkFzVbQ9FFL7MzGmIyVlNYD1GRL+ ZOhyHJXlGbJ1KVheYbL5PBY9PYW2ZJLpHXV0AwNpWHe0Ki9wCCDYYi7+DVusqKUiuZsjLAJMZyK3NQso LRgqUYDLHh1H ID Date Data Source [id number] 09/27/2019 11:06:00 AM EST [facility] CONSULTATION REPORT NAME: NI DIAZ : 1980 AGE: 39 MR#: [id number] ADMITTING DATE: ADMITTING DR: DISCHARGE DATE: 09/27/[address]: ROOM#: DATE CONSULT DICTATED 09/27/2019 MEDICAL CONSULTATION September 27, 2019. CHIEF COMPLAINT Nausea, vomiting, bloody diarrhea and abdominal pain. HISTORY OF PRESENTING ILLNESS A 39-year-old female who recently had a reversal of gastric bypass and J-tube placement on September 01, 2019 at [facility], came to the Emergency Department for complaint of worsening nausea, vomiting containing blood tinged vomitus, diffuse abdominal pain and black stool and intermittent episode of bloody diarrhea for past 3 days. In the emergency department, hemoglobin was 8.9 that was low compared to the prior late lab of hemoglobin 10.6. CT abdomen showed fluid-filled loops of large and small bowel without bowel wall thickening. The patient was given IV morphine, IV Zofran and IV Benadryl. Lipase was 846. Hospitalist service was consulted for evaluation if the patient can be admitted at [facility]. The patient was seen and examined at bedside. at bedside. Patient complained of abdominal pain and nausea. PAST MEDICAL HISTORY History of GI (gastrointestinal) bleeding. History of gastroparesis. For that patient was on TPN (total parenteral nutrition). Chronic lower back pain. 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 PAST SURGICAL HISTORY History of gastric bypass and recently had reversal of gastric bypass on September 01, 2019. Lumbar fusion in 2016. Cholecystectomy. Bowel resection. Multiple surgeries for J-tube and G-tube tube placement and removal. Infusion port placement over left side of the chest. ALLERGIES THE PATIENT IS ALLERGIC TO LEVOFLOXACIN, NSAID (NONSTEROIDAL ANTIINFLAMMATORY DRUGS) AND SULFA. MEDICATION Home medication reviewed. Please refer to permanent medical record. FAMILY HISTORY Family history reviewed and noncontributory. Mother had high blood pressure. SOCIAL HISTORY Never smoker. Denied alcohol intake and illicit drug abuse. Patient lives in [place] and has four kids. The patient lives with her and is independent for activities of daily living. REVIEW OF SYSTEMS 10-point review of system was performed and it was negative except as per HPI (history of presentingillness). PHYSICAL EXAMINATION GENERAL: Patient is comfortable, not in acute distress. HEENT (head, eyes, ears, nose and throat): Bilateral pupils round, reacting to light and accommodation. Oral mucosa moist. NECK: Supple. RESPIRATORY SYSTEM: Clear to auscultation. No rales, rhonchi, or wheezing. CARDIOVASCULAR SYSTEM: Regular rate and rhythm. S1, S2 heard. EXTREMITIES: No peripheral edema. ABDOMEN: Diffuse tenderness in all quadrants. G-tube in place. There was dried blood in the G-tube. CENTRAL NERVOUS SYSTEM: No focal deficit. PSYCHIATRIC: Patient's mood is normal. ASSESSMENT AND PLAN A 39-year-old female with a recent reversal of her gastric bypass and J-tube placement, came to the emergency department for worsening nausea, vomiting, diffuse abdominal pain and vomiting containing blood tinged liquid, intermittent episodes of bloody diarrhea and black stools for past three days. Hemoglobin is 8.9, that is lower compared to prior level of 10.6. In the emergency department, aspiration from the G-tube site showed betsey blood/blood tinged liquid. The patient recently had surgery at [facility]. There is no in-house GI (gastrointestinal) service available at [facility]. In view of suspected GI (gastrointestinal) bleeding the patient would benefit from transfer to a tertiary care center where there is an in-house GI (gastrointestinal) service in view of suspicion for active GI (gastrointestinal) bleeding. Recommendations were to transfer the patient to [facility]. Family member, the patient and the ERdoctor were updated about the recommendation. The patient and family member agrees to the plan of transfer to [facility]. Thank you for consulting the hospitalist service. <Electronically signed by Erfen Valdez MD> Efren Valdez MD 09/29/19 1613 Efren Valdez MD Cosigner: D: ARYVI 09/27/19 1106 T: BEAMI 09/29/19 1554 CC: Efren Valdez MD; Cynthia Simmons MD LAST EDIT: Name Value Range Interpretation Code Description Data Sumaya rce(s) Supporting Document(s) ID Date Data Source [id number] 09/29/2019 01:12:02 PM [facility] Name Value Range Interpretation Code Description Data Sumaya rce(s) Supporting Document(s) [facility] WFJCCc6gOmWJKrQw70/OQGzbTGXnr4QvQLncCNp3JMypGNUnX0VpZNY9xD1yXSA6QKdLIoGwJKuyKeYx lbm [file] T4BCK8wCEsRd4QLFs4Tg4LIJGLO9HHWo== ID Date Data Source [id number] 09/29/2019 12:50:12 PM [facility] Name Value Range Interpretation Code Description Data Sumaya rce(s) Supporting Document(s) Consultation [facility] SAXQNv8rUfPNXwZk40/ULFjiTFSqq1TtJHsfZTs8ZByhTKBfI1SuBDW3fP3wEZG1CToNDmYeVJqnPiSb lbm [file] ICAgICAgICAgICAgICAgICAgICAgICAgICAgICAgICAgICAgICAgICAgICAgICAgICAgICAgICAgICAg ICAgICAgICAgICAgICAgICAgICAgICAgICAgICAgICAgICAgICAgDQogICAgICAgICAgICAgICAgICAg ICAgICAgICAgICAgICAgICAgICAgICAgICAgICAgIC AgICAgICAgICAgICAgICAgICAgICAgICAgICAgICAgICAgICAgICAgICAgICAgICAgDQogICAgICAgIC AgICAgICAgICAgICAgICAgICAgICAgICAgICAgICAgICAgICAgICAgICAgICAgICAgICAgICAgICAgIC AgICAgICAgICAgICAgICAgICAgICAgICAgICAgICAg DQogICAgICAgICAgICAgICAgICAgICAgICAgICAgICAgICAgICAgICAgICAgICAgICAgICAgICAgICAg ICAgICAgICAgICAgICAgICAgICAgICAgICAgICAgICAgICAgICAgICAgDQogICAgICAgICAgICAgICAg ICAgICAgICAgICAgICAgICAgICAgICAgICAgICAgIC AgICAgICAgICAgICAgICAgICAgICAgICAgICAgICAgICAgICAgICAgICAgICAgICAgICAgDQogICAgIC AgICAgICAgICAgICAgICAgICAgICAgICAgICAgICAgICAgICAgICAgICAgICAgICAgICAgICAgICAgIC AgICAgICAgICAgICAgICAgICAgICAgICAgICAgICAg ICAgDQogICAgICAgICAgICAgICAgICAgICAgICAgICAgICAgICAgICAgICAgICAgICAgICAgICAgICAg ICAgICAgICAgICAgICAgICAgICAgICAgICAgICAgICAgICAgICAgICAgICAgDQogICAgICAgICAgICAg ICAgICAgICAgICAgICAgICAgICAgICAgICAgICAgIC AgICAgICAgICAgICAgICAgICAgICAgICAgICAgICAgICAgICAgICAgICAgICAgICAgICAgICAgDQogIC AgICAgICAgICAgICAgICAgICAgICAgICAgICAgICAgICAgICAgICAgICAgICAgICAgICAgICAgICAgIC AgICAgICAgICAgICAgICAgICAgICAgICAgICAgICAg ICAgICAgDQogICAgICAgICAgICAgICAgICAgICAgICAgICAgICAgICAgICAgICAgICAgICAgICAgICAg JCRlNOQeDVXkQBRiHIYgNFEqGSDtDNApNXQoJIXlOINrGQHeHCVyDOPpIXLgVCUxGMg5N5ysODJaYMIh NV1pJIl7Hv7+LLpDItAuNQT1ryPynH6RBZ0zu5SsPE ivISZil1AlHPr6IU7NUENbGFtmKP8VYLsebz3PPELrWJElmMEQj2dmEnHrTVN7XXLbRqotJP2JKHOiB8 zjwsJwJVLkBSLMRFjpSABDZUwnHRXJPHWnOFXgSeYrEqRyBDCtYTJbJSHJLCZ1JBMqCqDkQKeiLJ3Aw3 GgvWV7GDj+Ir7GHT0hp8SdZKgySuCyWP4kru4CFYzF GnPiW0HaulT5FUF8KFJxNs4AFAVdUCRauBJfNWKiORHKAdAlC5XccX52OHRNOw3+DQplbmRvYmoNCjM4 NCDge9EjBYe5GB9QLRUqICw6cCMxU81se3OhaPZgDcdsT0iyn6KfhjTsBUanvSm7fiekOGRjPMFiLGVk MB0gNLT8KOGiLtNgYGWHDH6SCWAnLGSuuCJzPNTbQS RCYU0OWYkiIQV1PQYhbbQigYZzOXleKL4IJFHfotSjIjfvKTZJGZk+Ym0XLU4ow3BnSXmdHVEnCS2dhb 9FTZsLToTbM8L5jPWuJ9K6MLavOo5QEEUnAJQwNwTrFTOEUUpbRO2DEB8wdjM6VW6KrKAtSMMjMZXfwK UbFQt7Z44geNLpJAweLD1NYPK+Savannah+Yk6PZJLoWHPg XNJzFgXkUJXYMfVvA8YoB4TPu4AwZ2FlJO45iTuvapWoUJfxBM3HOC1jFKDjXBKERG8AhBVhfH8upkJh YwMbOSIGNaEdQ80fzFCiNZKwBOO6TINbEn1DHALhA0LdliDdwJsodfOsNPExQWRCUZ1JYAlrxkDygGEw aIxzTA13nQiuYK9PRw8TElWtGW7uxm9DeGAlAp4HEO H1FH3DQFLxOTCyMZKhTMX7KQSpFyFfBLcoBUWjXJQkWVQ2SYVsOYLkPR8DStHwWGArDcphHISvEAPuRA Wjwz1SIKGdMEZfTSgoIdZhVFYxUFVeCGceLWDtTCYjQWS4UORoZCFoDK8ZGyWzPTXiFLL5SvPrRGVoRE Qsiu1YEGDdERNdXyr1GRBvMNEeCAOqILuySPWwUIF5 NDk2RRSmXDAcYF2UEfDuFOZsLDeoTXBsWPDzGSVecd2DTUBmQTBvVATcDKKgQGYbLEOyOZgnAFYeOCLn PwMxCEVzIJCyPR7DSgAuYQWcIQV2NaEaFNNaJNXtjx5PFEOdKISpGsr9CiCjDXFmXHJuFJinPQCmRJT5 JIV5VERzGZCaUX3RAiRqIVVuQPI6PPOpGPFwHSYgbd 4UXOApZKXwEHWeLWHeVIYbQRIjIPhfVHOqGSE4QlNxZITfHPFoUV1ZHrWoMVQnLFgqByWuJNAzSWJdeb 1WJBFpVFMkASIqTfUrJDIsXGIdVPwcZTXcPDSlUNg0PUTgMTXuHJ4PNlWcWVCyMxB2CPLyGSPbLJUjxl 6KPTDcNFMnZXd2ZhWkTINzIKUjRGwpCGNnBJItAQC8 AUTjGHEiIC0VTbVyCIJjJdUgVaaoVUJrPYQoah2TXVVtWWIxFuNnNtZgPYOzLDUhPJvyTZJvYCUiSGy1 AJBkRUEaNV9FTsFgLZYoQfXaDoWqTOThTLEnbt2CBOCgZKWtAhV8SzFdWPZiIRQuUShpNQNtWPS0CPYd ODRaNATkFZ2LTzLmFTMnAiPfUKwfWMSbCYHmnu0PYF CwKMBvQXF9KHFeXJLkRRPgIYieTYSkFRK3TiV2BMZmUAXoEV9ZBlIcQEFbWtP9RFZjXVWjIFRgyf8POJ VkFVXoKvc0KbLkFSYqBFEoKFohZYOzVKR8BKv6RVSjWSFlMG8SOcXwNQRkAcdkIrAwQYTvIRKcja7KAW IdMGSkIcJ1GlQsEVGiUBTdVSxbFZEbVHX3NYy7XUGg VNEpCS5TLaKrTXLxMsuqOIMuEVVcREEwrs0ASEVlZLFsOEW6YQZaZUUbWBGxJIq9jdXamGRwGXe8EN0C B5NjrqLjTZTVNg0Qq944CVL9OAOrIf1ZD8fuFx7pOALoKGYZLj1LLVb7P5BjVITrAtw5JFE8PQF0WaMu MDUzZTkxNjZhNThlNmE+GHk1MJY9DxRkXWd6Jpc6Mp VkVxHvNDHhCQB8DtP0RVG6OD5nHXCUEs0+XGkyvKJszFxqXMCQPbB7BTG3XCdlEZBMSu4C ID Date Data Source [id number] 09/29/2019 09:08:05 AM [facility] Name Value Range Interpretation Code Description Data Sumaya rce(s) Supporting Document(s) Leukocytes [#/volume] in Blood by Automated count 5.2 10*3/uL 4-10 [facility] Erythrocytes [#/volume] in Blood by Automated count 2.99 10*6/uL 4.1- 5.3 L [facility] Hemoglobin [Mass/volume] in Blood 7.5 g/dL 11.5-15.5 [facility] Hematocrit [Volume Fraction] of Blood by Automated count 23.4 % 3 6-45 L [facility] Erythrocyte mean corpuscular volume [Entitic volume] by Auto mated count 78.1 fL 80-96 L [facility] Erythrocyte mean corpuscular hemoglobin [Entitic mass] by Automated count 25.2 pg 27-33 [facility] Erythrocyte mean corpuscular hemoglobin concentration [Mass/volume] by Automated count 32.3 g/dL 32.0-36.0 [facility] distribution width [Ratio] by Automated count 16.4 % 11.5-14.5 H [facility] Platelets [#/volume] in Blood by Automated count 238 10*3/uL 150-400 [facility] Differential cell count method - Blood [facility] Neutrophils/100 leukocytes in Blood by Automated count 68 % [facility] Lymphocytes/100 leukocytes in Blood by Automated count 18 % [facility] Monocytes/100 leukocytes in Blood by Automated count 8 % [facility] Eosinophils/100 leukocytes in Blood by Automated count 5 % [facility] Basophils/100 leukocytes in Blood by Automated count 1 % [facility] Neutrophils [#/volume] in Blood by Automated count 3.59 10*3/uL 1.8-7 .0 [facility] Lymphocytes [#/volume] in Blood by Automated count 0.94 10*3/uL 1.2-4 .0 L [facility] Monocytes [#/volume] in Blood by Automated count 0.40 10*3/uL 0-0.8 [facility] Eosinophils [#/volume] in Blood by Automated count 0.27 10*3/uL 0-0.5 [facility] Basophils [#/volume] in Blood by Automated count 0.03 10*3/uL 0-0.2 [facility] Nucleated erythrocytes/100 leukocytes [Ratio] in Blood by Automated count 0 /100{WBCs} 0-0 [facility] ID Date Data Source [id number] 09/29/2019 09:22:00 AM [facility] Name Value Range Interpretation Code Description Data Sumaya rce(s) Supporting Document(s) Troponin T.cardiac [Mass/volume] in Serum or Plasma <0.01 [facility] ID Date Data Source [id number] 09/29/2019 06:23:40 AM [facility] Value Range Interpretation Code Description Data Sumaya rce(s) Supporting Document(s) Albumin [Mass/volume] in Serum or Plasma by Bromocresol green (BCG) dye binding method 3.4 g/dL 3.5-5.2 L [facility] Bilirubin.total [Mass/volume] in Serum or Plasma 0.5 mg/dL <1.2 [facility] Bilirubin.direct [Mass/volume] in Serum or Plasma <0.3 [facility] Alkaline phosphatase [Enzymatic activity/volume] in Serum or Plasma 72 U/L 35-104 [facility] Aspartate aminotransferase [Enzymatic activity/volume] in Serum or Plasma 11 U/L <32 [facility] Alanine aminotransferase [Enzymatic activity/volume] in Seru m or Plasma 8 U/L <33 [facility] Protein [Mass/volume] in Serum or Plasma 5.6 g/dL 6.4-8.3 L [facility] ID Date Data Source [id number] 09/29/2019 06:23:40 AM [facility] Value Range Interpretation Code Description Data Sumaya rce(s) Supporting Document(s) Bicarbonate [Moles/volume] in Serum 29 mmol/L 22-29 [facility] Chloride [Moles/volume] in Serum or Plasma 105 mmol/L 98-107 [facility] Creatinine [Mass/volume] in Serum or Plasma 0.62 mg/dL 0.50-0.90 [facility] Glucose [Mass/volume] in Serum or Plasma 114 mg/dL 70-140 [facility] Potassium [Moles/volume] in Serum or Plasma 3.8 mmol/L 3.4-5.1 [facility] Sodium [Moles/volume] in Serum or Plasma 142 mmol/L 136-145 [facility] Urea nitrogen [Mass/volume] in Serum or Plasma 13 mg/dL 6-20 [facility] Confirmed Anion gap 3 in Serum or Plasma 8 mmol/L 8-15 [facility] Osmolality of Serum or Plasma by calculation 295 mosm/kg 275-300 [facility] Creatinine/Urea nitrogen [Mass Ratio] in Serum or Plasma 20 [facility] Calcium [Mass/volume] in Serum or Plasma 8.4 mg/dL 8.6-10.0 L [facility] Glomerular filtration rate/1.73 sq M pre dicted among non-blacks [Volume Rate/Area] in Serum or Plasma by Creatinine-based formula (MDRD) >6 0 [facility] Glomerular filtration rate/1.73 sq M pre dicted among blacks [Volume Rate/Area] in Serum or Plasma by Creatinine-based formula (MDRD) >60 [facility] ID Date Data Source [id number] 09/29/2019 06:23:40 AM [facility] Name Value Range Interpretation Code Description Data Sumaya rce(s) Supporting Document(s) Magnesium [Mass/volume] in Serum or Plasma 2.0 mg/dL 1.6-2.6 [facility] ID Date Data Source [id number] 09/29/2019 06:23:40 AM [facility] Value Range Interpretation Code Description Data Sumaya rce(s) Supporting Document(s) Phosphate [Mass/volume] in Serum or Plasma 4.5 mg/dL 2.5-4.5 [facility] ID Date Data Source [id number] 09/29/2019 12:14:26 AM [facility] Value Range Interpretation Code Description Data Sumaya rce(s) Supporting Document(s) Leukocytes [#/volume] in Blood by Automated count 4.7 10*3/uL 4-10 [facility] Erythrocytes [#/volume] in Blood by Automated count 2.78 10*6/uL 4.1- 5.3 [facility] Hemoglobin [Mass/volume] in Blood 7.1 g/dL 11.5-15.5 [facility] Hematocrit [Volume Fraction] of Blood by Automated count 21.4 % 3 6-45 L [facility] Erythrocyte mean corpuscular volume [Entitic volume] by Auto mated count 77.0 fL 80-96 L [facility] Erythrocyte mean corpuscular hemoglobin [Entitic mass] by Automated count 25.5 pg 27-33 L [facility] Erythrocyte mean corpuscular hemoglobin concentration [Mass/volume] by Automated count 33.2 g/dL 32.0-36.0 [facility] E[facility]throcyte distribution width [Ratio] by Automated count 16.3 % 11.5-14.5 H [facility] Platelets [#/volume] in Blood by Automated count 211 10*3/uL 150-400 [facility] Differential cell count method - Blood [facility] Neutrophils/100 leukocytes in Blood by Automated count 55 % [facility] Lymphocytes/100 leukocytes in Blood by Automated count 28 % [facility] Monocytes/100 leukocytes in Blood by Automated count 11 % [facility] Eosinophils/100 leukocytes in Blood by Automated count 5 % [facility] Basophils/100 leukocytes in Blood by Automated count 1 % [facility] Neutrophils [#/volume] in Blood by Automated count 2.62 10*3/uL 1.8-7 .0 [facility] Lymphocytes [#/volume] in Blood by Automated count 1.30 10*3/uL 1.2-4 .0 [facility] Monocytes [#/volume] in Blood by Automated count 0.51 10*3/uL 0-0.8 [facility] Eosinophils [#/volume] in Blood by Automated count 0.23 10*3/uL 0-0.5 [facility] Basophils [#/volume] in Blood by Automated count 0.04 10*3/uL 0-0.2 [facility] Nucleated erythrocytes/100 leukocytes [Ratio] in Blood by Automated count 0 /100{WBCs} 0-0 [facility] ID Date Data Source [id number] 09/29/2019 12:27:57 AM [facility] Name Value Range Interpretation Code Description Data Sumaya rce(s) Supporting Document(s) Troponin T.cardiac [Mass/volume] in Serum or Plasma <0.01 [facility] ID Date Data Source [id number] 09/28/2019 05:27:38 PM [facility] Name Value Range Interpretation Code Description Data Sumaya rce(s) Supporting Document(s) Leukocytes [#/volume] in Blood by Automated count 5.7 10*3/uL 4-10 [facility] Erythrocytes [#/volume] in Blood by Automated count 2.82 10*6/uL 4.1- 5.3 L [facility] Hemoglobin [Mass/volume] in Blood 7.2 g/dL 11.5-15.5 [facility] Hematocrit [Volume Fraction] of Blood by Automated count 21.9 % 3 6-45 L [facility] Erythrocyte mean corpuscular volume [Entitic volume] by Auto mated count 77.6 fL 80-96 L [facility] Erythrocyte mean corpuscular hemoglobin [Entitic mass] by Automated count 25.5 pg 27-33 L [facility] Erythrocyte mean corpuscular hemoglobin concentration [Mass/volume] by Automated count 32.9 g/dL 32.0-36.0 [facility] E[facility]throcyte distribution width [Ratio] by Automated count 16.4 % 11.5-14.5 H [facility] Platelets [#/volume] in Blood by Automated count 223 10*3/uL 150-400 [facility] Differential cell count method - Blood [facility] Neutrophils/100 leukocytes in Blood by Automated count 60 % [facility] Lymphocytes/100 leukocytes in Blood by Automated count 26 % [facility] Monocytes/100 leukocytes in Blood by Automated count 10 % [facility] Eosinophils/100 leukocytes in Blood by Automated count 3 % [facility] Basophils/100 leukocytes in Blood by Automated count 1 % [facility] Neutrophils [#/volume] in Blood by Automated count 3.43 10*3/uL 1.8-7 .0 [facility] Lymphocytes [#/volume] in Blood by Automated count 1.48 10*3/uL 1.2-4 .0 [facility] Monocytes [#/volume] in Blood by Automated count 0.57 10*3/uL 0-0.8 [facility] Eosinophils [#/volume] in Blood by Automated count 0.16 10*3/uL 0-0.5 [facility] Basophils [#/volume] in Blood by Automated count 0.04 10*3/uL 0-0.2 [facility] Nucleated erythrocytes/100 leukocytes [Ratio] in Blood by Automated count 0 /100{WBCs} 0-0 [facility] ID Date Data Source [id number] 09/28/2019 05:51:27 PM [facility] Name Value Range Interpretation Code Description Data Sumaya rce(s) Supporting Document(s) Troponin T.cardiac [Mass/volume] in Serum or Plasma <0.01 [facility] ID Date Data Source [id number] 09/28/2019 02:03:51 PM [facility] Name Value Range Interpretation Code Description Data Sumaya rce(s) Supporting Document(s) EKG [facility] FYHZBp0xToEOOuUyf3MnFiVdGPGiEF4fhrc2Z1E1qRTzJ1XxuFInn5ahW4HyI7ApTLBmNTYAEB3ByOGz jb2 [file] b1m9uG6F99scJ2/mHFpZG67GRc6L8863955/9fLnb/ /67pqwJ1+2naeO7rzaBl2p5Nd4q21tF+99K79+9/L9j3/97s//+9s//X3wso8jg3/3vnVj/Zk2eswci+ 9f/vifj3v//zjel857FvE5z+0kh5k0Fh1+/U8f/sAnHZdC//hj+bcg9wes8u5rYo/rjPmzmz+8nC0Zn4 s06Wy1wAFiz/Xgia1z0/6f7/7y39+c+4be50P6O8/7 3EiaiL7nN/5//flffvmzs/dz+Fmwooh2V8+ecLzSf/rtf/5v5659rsjZrvkww/z+x5///n6dzP/0r//9 t7cT3/770v2tE/5+/tbPof1fq/rDx+J8z59/XMZX2Pp/8N0f/uPH7//wuL+PX54ME/ooWdtjA466l96+ wzztM12t9/Wfdt35zBZz+yriapb63Lo4I/Nb9PzG/f 3Wbu6h5NvTZ+nX3/77dy/y8tO/nPq942ZH09vMWg3iw6+5avL42nceLz+/SH/MjS/7vf101aA88k5F9g SrIiZ04uTRq/nce8z63dMlU8sp1oh0/jDjnsV7FiSrWZV4siAyhUweujAgYnbGCHidVQKeLnr2CF9NrS DnWBSdA6F0ZBIlji6oTPYjSWVnxUHsEaPrYICFLC0K qNAzNC1TMDl9XQLaVPZeHmOxWXUpbdQ2QKJiKIOjEJTiM0UbvkNcxHRcVHReSa3+ER5hr3ZnSuGeRSGp Jrb8LK4YmDMzYO0CcHSzxH6nxlHtT495fsMnRRYyBkfmx7JrBHzgCZTNAF3CHJY0JTP1QEQqPr5+ZW5k h8AtYxUvNRMbTjs6YK9MkLQkz3PaCP5HE2MhNTTzWJ EMMKE1d8LpUFTzphihricqV0FtTBR0rH6kMSK0CLRzCAjjBBD0IAFwAKP1VDKxHVwbRWXoRNHoYYFaWJ KyDRh5lCCrWM3UD6GhWOKrLWBFTMWjvtSrUk8bSOUUGPCREABQABBwNRKBXXPSXKKxJZWeHVyqUVLtX9 SpiaWqvIWfETZUIKuyQabvIKVmvN5cvGgpL8JkUTI6 b7LvNA1GY6NfRJAtCMHLNFT1b2OmKIFnxatgisavZmNcTWAeZGEdTOLbNX6Cbb8mzCGheoZeRSNGRGkp NgsdHU6skIxceeqgV7UtpOZhBZS+VuKlCE7uid5+QcPcCABwFut4FUEfQAjdDNNdHKLzYYBsG6bkDVQn KnTbWEFpLsYuAR0Iw6IejUTgLl2botJbClrUpCShMu bwLFYhQBPqDHFtIhUFOWGkRGNlIPOpUAD8CCVbWYUcWIlkPERdPVKzBFAtPPCvLSReQK5iFaHhSVUxTh K3PhDgETNdAHLeuhSKQTDzPJH8JUBaBoFzDLHfRUWuUNprGOPrMEGaZCZiKYE2CIK4KNGcBrDiNJJsQP VyUOAcDUYvWESixnEAMUPuJRVtKIH5CUUvADOvYBNq NTsyFBMnWUVdYPxxMLVzXTBsOV5oUfHeQCZgSTQvCYdwUAXgTAQhqeCHXTDjTGDhLLBcYTQeCQOxHFNg VSriXJYiSOZqBTUaMMYfWVLcHL1rVyWrTUJuYJB6LMZxJQNwCBCjtzGJLXTvRBGoOMk2RXTvPBOtRHTz LDwuKERvZVVeYLD6RSVrOPDjSS7fXqPySJCrFCD3Cu FnSRQyFMSjpfYIAJLsFFKeQMF7ZpPuMSZoCOTuZHdaZHAvKITiMApsMULeSXIsNN2pKlCnBEKlBRSlTD ggKKClIEAnbqEEIUBoGCYpEZNpFyArNHSlUHXpUAbmYPSyHTUnEAE2ICMsGSDaWS9qHrYjLGEhRJK8RX kgMDAwMDAgbiAKMDAwMDAwMTczNCAwMDAwMCBuIAow GTFdDEHmWCJ7OBMrNICeIK1qGhZaKFFzISHqWNEeVuJ4OyXsWoJEbDWofKexmlf7GPzqE6p5FBMbDXft ID9cfbDnQLJgHsycNn3glQF5ZCWmSiwZEi4Mm5VuprP1udMcWiSkNOD6NfChHY2Y ID Date Data Source [id number] 09/28/2019 01:10:41 PM [facility] Name Value Range Interpretation Code Description Data [facility] rce(s) Supporting Document(s) Leukocytes [#/volume] in Blood by Automated count 5.7 10*3/uL 4-10 [facility] Erythrocytes [#/volume] in Blood by Automated count 2.92 10*6/uL 4.1- 5.3 L [facility] Hemoglobin [Mass/volume] in Blood 7.3 g/dL 11.5-15.5 L [facility] Hematocrit [Volume Fraction] of Blood by Automated count 22.6 % 3 6-45 L [facility] Erythrocyte mean corpuscular volume [Entitic volume] by Auto mated count 77.4 fL 80-96 L [facility] Erythrocyte mean corpuscular hemoglobin [Entitic mass] by Automated count 25.0 pg 27-33 L [facility] Erythrocyte mean corpuscular hemoglobin concentration [Mass/volume] by Automated count 32.3 g/dL [facility].0[facility] width [Ratio] by Automated count 16.8 % 11.5-14.5 H [facility] Platelets [#/volume] in Blood by Automated count 240 10*3/uL 150-400 [facility] Differential cell count method - Blood [facility] Neutrophils/100 leukocytes in Blood by Automated count 68 % [facility] Lymphocytes/100 leukocytes in Blood by Automated count 20 % [facility] Monocytes/100 leukocytes in Blood by Automated count 10 % [facility] Eosinophils/100 leukocytes in Blood by Automated count 1 % [facility] Basophils/100 leukocytes in Blood by Automated count 1 % [facility] Neutrophils [#/volume] in Blood by Automated count 3.84 10*3/uL 1.8-7 .0 [facility] Lymphocytes [#/volume] in Blood by Automated count 1.12 10*3/uL 1.2-4 .0 L [facility] Monocytes [#/volume] in Blood by Automated count 0.58 10*3/uL 0-0.8 [facility] Eosinophils [#/volume] in Blood by Automated count 0.08 10*3/uL 0-0.5 [facility] Basophils [#/volume] in Blood by Automated count 0.03 10*3/uL 0-0.2 [facility] Nucleated erythrocytes/100 leukocytes [Ratio] in Blood by Automated count 0 /100{WBCs} 0-0 [facility] ID Date Data Source [id number] 09/28/2019 12:04:43 PM [facility] Name Value Range Interpretation Code Description Data [facility] rce(s) Supporting Document(s) Magnesium [Mass/volume] in Serum or Plasma 1.8 mg/dL 1.6-2.6 [facility] ID Date Data Source [id number] 09/28/2019 12:04:43 PM [facility] Name Value Range Interpretation Code Description Data Sumaya rce(s) Supporting Document(s) Phosphate [Mass/volume] in Serum or Plasma 4.7 mg/dL 2.5-4.5 H [facility] ID Date Data Source [id number] 09/28/2019 09:20:55 AM [facility] Value Range Interpretation Code Description Data Sumaya rce(s) Supporting Document(s) Troponin T.cardiac [Mass/volume] in Serum or Plasma <0.01 [facility] ID Date Data Source [id number] 09/28/2019 05:51:55 AM [facility] Name Value Range Interpretation Code Description Data Sumaya rce(s) Supporting Document(s) Leukocytes [#/volume] in Blood by Automated count 6.8 10*3/uL 4-10 [facility] Erythrocytes [#/volume] in Blood by Automated count 3.29 10*6/uL 4.1- 5.3 [facility] Hemoglobin [Mass/volume] in Blood 8.3 g/dL 11.5-15.5 [facility] Hematocrit [Volume Fraction] of Blood by Automated count 25.6 % 3 6-45 [facility] Erythrocyte mean corpuscular volume [Entitic volume] by Auto mated count 77.8 fL 80-96 [facility] Erythrocyte mean corpuscular hemoglobin [Entitic mass] by Automated count 25.3 pg 27-33 [facility] Erythrocyte mean corpuscular hemoglobin concentration [Mass/volume] by Automated count 32.5 g/dL 32.0-36.0 [facility] distribution width [Ratio] by Automated count 16.6 % 11.5-14.5 [facility] Platelets [#/volume] in Blood by Automated count 266 10*3/uL 150-400 [facility] Differential cell count method - Blood [facility] Neutrophils/100 leukocytes in Blood by Automated count 88 % [facility] Lymphocytes/100 leukocytes in Blood by Automated count 9 % [facility] Monocytes/100 leukocytes in Blood by Automated count 3 % [facility] Eosinophils/100 leukocytes in Blood by Automated count 0 % [facility] Basophils/100 leukocytes in Blood by Automated count 0 % [facility] Neutrophils [#/volume] in Blood by Automated count 5.91 10*3/uL 1.8-7 .0 [facility] Lymphocytes [#/volume] in Blood by Automated count 0.62 10*3/uL 1.2-4 .0 L [facility] Monocytes [#/volume] in Blood by Automated count 0.21 10*3/uL 0-0.8 [facility] Eosinophils [#/volume] in Blood by Automated count 0.00 10*3/uL 0-0.5 [facility] Basophils [#/volume] in Blood by Automated count 0.03 10*3/uL 0-0.2 [facility] Nucleated erythrocytes/100 leukocytes [Ratio] in Blood by Automated count 0 /100{WBCs} 0-0 [facility] ID Date Data Source [id number] 09/28/2019 06:17:18 AM [facility] Name Value Range Interpretation Code Description Data Sumaya rce(s) Supporting Document(s) Albumin [Mass/volume] in Serum or Plasma by Bromocresol green (BCG) dye binding method 3.8 g/dL 3.5-5.2 [facility] Bilirubin.total [Mass/volume] in Serum or Plasma 0.8 mg/dL <1.2 [facility] Bilirubin.direct [Mass/volume] in Serum or Plasma <0.3 [facility] Alkaline phosphatase [Enzymatic activity/volume] in Serum or Plasma 90 U/L 35-104 [facility] Aspartate aminotransferase [Enzymatic activity/volume] in Serum or Plasma 11 U/L <32 [facility] Alanine aminotransferase [Enzymatic activity/volume] in Seru m or Plasma 9 U/L <33 [facility] Protein [Mass/volume] in Serum or Plasma 6.2 g/dL 6.4-8.3 [facility] ID Date Data Source [id number] 09/28/2019 06:17:18 AM [facility] Name Value Range Interpretation Code Description Data Sumaya rce(s) Supporting Document(s) Lipase [Enzymatic activity/volume] in Serum or Plasma 140 U/L 13-6 0 H [facility] ID Date Data Source [id number] 09/28/2019 06:17:18 AM [facility] Name Value Range Interpretation Code Description Data Sumaya rce(s) Supporting Document(s) Bicarbonate [Moles/volume] in Serum 27 mmol/L 22-29 [facility] Chloride [Moles/volume] in Serum or Plasma 105 mmol/L 98-107 [facility] Creatinine [Mass/volume] in Serum or Plasma 0.52 mg/dL 0.50-0.90 [facility] Glucose [Mass/volume] in Serum or Plasma 133 mg/dL 70-140 [facility] Potassium [Moles/volume] in Serum or Plasma 4.1 mmol/L 3.4-5.1 [facility] Sodium [Moles/volume] in Serum or Plasma 140 mmol/L 136-145 [facility] Urea nitrogen [Mass/volume] in Serum or Plasma 8 mg/dL 6-20 [facility] Anion gap 3 in Serum or Plasma 8 mmol/L 8-15 [facility] Osmolality of Serum or Plasma by calculation 290 mosm/kg 275-300 [facility] Creatinine/Urea nitrogen [Mass Ratio] in Serum or Plasma 14 [facility] Calcium [Mass/volume] in Serum or Plasma 9.0 mg/dL 8.6-10.0 [facility] Glomerular filtration rate/1.73 sq M pre dicted among non-blacks [Volume Rate/Area] in Serum or Plasma by Creatinine-based formula (MDRD) >6 0 [facility] Glomerular filtration rate/1.73 sq M pre dicted among blacks [Volume Rate/Area] in Serum or Plasma by Creatinine-based formula (MDRD) >60 [facility] ID Date Data Source [id number] 09/28/2019 01:02:36 AM [facility] Value Range Interpretation Code Description Data Sumaya rce(s) Supporting Document(s) Leukocytes [#/volume] in Blood by Automated count 8.7 10*3/uL 4-10 [facility] Erythrocytes [#/volume] in Blood by Automated count 3.25 10*6/uL 4.1- 5.3 L [facility] Hemoglobin [Mass/volume] in Blood 8.3 g/dL 11.5-15.5 L [facility] Hematocrit [Volume Fraction] of Blood by Automated count 25.3 % 3 6-45 L [facility] Erythrocyte mean corpuscular volume [Entitic volume] by Auto mated count 77.9 fL 80-96 L [facility] Erythrocyte mean corpuscular hemoglobin [Entitic mass] by Automated count 25.7 pg 27-33 L [facility] Erythrocyte mean corpuscular hemoglobin concentration [Mass/volume] by Automated count 33.0 g/dL 32.0-36.0 [facility] Erythrocyte distribution width [Ratio] by Automated count 16.3 % 11.5-14.5 H [facility] Platelets [#/volume] in Blood by Automated count 244 10*3/uL 150-400 [facility] Differential cell count method - Blood [facility] Neutrophils/100 leukocytes in Blood by Automated count 90 % [facility] Lymphocytes/100 leukocytes in Blood by Automated count 6 % [facility] Monocytes/100 leukocytes in Blood by Automated count 3 % [facility] Eosinophils/100 leukocytes in Blood by Automated count 1 % [facility] Basophils/100 leukocytes in Blood by Automated count 0 % [facility] Neutrophils [#/volume] in Blood by Automated count 7.80 10*3/uL 1.8-7 .0 H [facility] Lymphocytes [#/volume] in Blood by Automated count 0.52 10*3/uL 1.2-4 .0 L [facility] Monocytes [#/volume] in Blood by Automated count 0.22 10*3/uL 0-0.8 [facility] Eosinophils [#/volume] in Blood by Automated count 0.09 10*3/uL 0-0.5 [facility] Basophils [#/volume] in Blood by Automated count 0.04 10*3/uL 0-0.2 [facility] Nucleated erythrocytes/100 leukocytes [Ratio] in Blood by Automated count 0 /100{WBCs} 0-0 [facility] ID Date Data Source [id number] 09/28/2019 01:21:20 AM [facility] Name Value Range Interpretation Code Description Data Sumaya rce(s) Supporting Document(s) Bicarbonate [Moles/volume] in Serum 26 mmol/L 22-29 [facility] Chloride [Moles/volume] in Serum or Plasma 108 mmol/L 98-107 H [facility] Creatinine [Mass/volume] in Serum or Plasma 0.57 mg/dL 0.50-0.90 [facility] Glucose [Mass/volume] in Serum or Plasma 154 mg/dL 70-140 H [facility] Potassium [Moles/volume] in Serum or Plasma 4.3 mmol/L 3.4-5.1 [facility] Sodium [Moles/volume] in Serum or Plasma 142 mmol/L 136-145 [facility] Urea nitrogen [Mass/volume] in Serum or Plasma 8 mg/dL 6-20 [facility] Anion gap 3 in Serum or Plasma 9 mmol/L 8-15 [facility] Osmolality of Serum or Plasma by calculation 295 mosm/kg 275-300 [facility] Creatinine/Urea nitrogen [Mass Ratio] in Serum or Plasma 14 [facility] Calcium [Mass/volume] in Serum or Plasma 8.9 mg/dL 8.6-10.0 [facility] Glomerular filtration rate/1.73 sq M pre dicted among non-blacks [Volume Rate/Area] in Serum or Plasma by Creatinine-based formula (MDRD) >6 0 [facility] Glomerular filtration rate/1.73 sq M pre dicted among blacks [Volume Rate/Area] in Serum or Plasma by Creatinine-based formula (MDRD) >60 [facility] ID Date Data Source [id number] 09/28/2019 01:21:20 AM [facility] Name Value Range Interpretation Code Description Data Sumaya rce(s) Supporting Document(s) Troponin T.cardiac [Mass/volume] in Serum or Plasma <0.01 [facility] ID Date Data Source [id number] 09/27/2019 09:46:11 PM [facility] Value Range Interpretation Code Description Data Sumaya rce(s) Supporting Document(s) Operative Note [facility] MWOXRn9oYeWCNiRr88/PAHuyHIFuf0AwFQclSLx7TRswVNDyL5ExMYR1yC1iPQU3VDnIVyRlCDnbQmE7 m [file] ogICAgICAgICAgICAgICAgICAgICAgICAgICAgICAgICAgICAgICAgICAgICAgICAgICAgICAgICAgIC AgICAgICAgICAgICAgICAgICAgICAgICAgICAgICAgICAgICAgICAgDQogICAgICAgICAgICAgICAgIC AgICAgICAgICAgICAgICAgICAgICAgICAgICAgICAg ICAgICAgICAgICAgICAgICAgICAgICAgICAgICAgICAgICAgICAgICAgICAgICAgICAgDQogICAgICAg ICAgICAgICAgICAgICAgICAgICAgICAgICAgICAgICAgICAgICAgICAgICAgICAgICAgICAgICAgICAg ICAgICAgICAgICAgICAgICAgICAgICAgICAgICAgIC AgDQogICAgICAgICAgICAgICAgICAgICAgICAgICAgICAgICAgICAgICAgICAgICAgICAgICAgICAgIC AgICAgICAgICAgICAgICAgICAgICAgICAgICAgICAgICAgICAgICAgICAgDQogICAgICAgICAgICAgIC AgICAgICAgICAgICAgICAgICAgICAgICAgICAgICAg ICAgICAgICAgICAgICAgICAgICAgICAgICAgICAgICAgICAgICAgICAgICAgICAgICAgICAgDQogICAg ICAgICAgICAgICAgICAgICAgICAgICAgICAgICAgICAgICAgICAgICAgICAgICAgICAgICAgICAgICAg ICAgICAgICAgICAgICAgICAgICAgICAgICAgICAgIC AgICAgDQogICAgICAgICAgICAgICAgICAgICAgICAgICAgICAgICAgICAgICAgICAgICAgICAgICAgIC AgICAgICAgICAgICAgICAgICAgICAgICAgICAgICAgICAgICAgICAgICAgICAgDQogICAgICAgICAgIC AgICAgICAgICAgICAgICAgICAgICAgICAgICAgICAg ICAgICAgICAgICAgICAgICAgICAgICAgICAgICAgICAgICAgICAgICAgICAgICAgICAgICAgICAgDQog ICAgICAgICAgICAgICAgICAgICAgICAgICAgICAgICAgICAgICAgICAgICAgICAgICAgICAgICAgICAg ICAgICAgICAgICAgICAgICAgICAgICAgICAgICAgIC AgICAgICAgDQogICAgICAgICAgICAgICAgICAgICAgICAgICAgICAgICAgICAgICAgICAgICAgICAgIC JnEANaSTSaRPKfGNZcSATiDTXcIBFsPFCtPJXzRQThYZDrINKnBAIuKQYqIUZgKIVcLQb6Y2leRLAyPR TeOZ5hGQk9Yf8+MJxRPrUtFPL6daNieR5ONB9wj9Rl VZvxJPZwm6FhVYz3HI3SRVSdFFeaZS2URLqjnf6ALPYeSIWxiMKAj8wiGsEkCLX2JTHwMtyiCT8RXNEk P3nzldQhTKEmQHFYSAivJRYIID3HUsUuI2GfiU51TLSOVt5+HFzehnLaQwbWGuJ5QOXai1ZnZPt6DL2P YEUsUlnmf9HsIVwlOURZCZrdRU0LMNA1DCK0PLStVl 2GOSYaN054oeGfFP2DXe0EWkRoRW3gbe0CXWpgGDHzWjyELsz8AFxxAV0QkTBoWTjXtILfVDPpvyPjNz 38PIHcrGORTRQlSHJuiBUKSEPvjDdweLgoTJMmBCHmVPOkBZ5oTLW1WJX7ReQ0FIFLFR8PJDFjZZAutF FaBGHeVCPADI1JDQyvMCJ3FWZsnaDmoUUnNSdyLX5V YXJlbnQgMTYgMCBSDQo+Bi6ACN1nl6XcNPbaGZAxPJ2jyw4EJLbBUuYpW9F9oKLnI6W1NFueLc5AKJGk HCFxUWSnWBMJTUvbHT9AIM8xtjX1JW5CaJGjJPPgDCXswMXyQAq2U30sdXUyYTszAU4NODO+Savannah+Pg0K BTHxJBWgFYDjKtShBUZKGcTiR5QtZ0IDa7MfT0OwFD 49dHnpxuZgZJtoGM0GSA7hYKZoZAZWNN2XdQRisF9wrjNwHrKtXRTZHkWuY31ikGDbHDNaPBJ2IRKvGj 6MPXYwK5PqreCetBvwlhRdPZOkOACERM5HAVvbdbVrpJVycZacNY93vYndNS5VDt7IFzGvJR7etn6SwB IsOu5TZYIoKK3TSYDoMDRaOVGgSOZ1FXYoSlPdKUrm CKDqUGQrGUN5WCNbBXVpJT4ILoHzUVQhMUp1GqpqBFQtJSMndj7DQVZlZFFtKHJ8JOJfNSUdEESpZFdm WFZyBXKqXCJ6JVSzEVKiMS3CZpSxQYHoWOG3FMJtHAXiDXPlmo0RASCsFQVjUmy7FWRcVRBoTGBtGEsc ZQFzQWH8JTD2NKQlOYCyXP0UHiIxYAOaUCXuGnfmWK DwEQOxii4BRDIzSBTrJhRqKxAsKIGbQTCqUNsiUDHyKYC1YYBtUPHoQPKmMU3UNqXjDLEpJND3NNTvEO HuYVTkvy5MLUYeWIWpTyE5QkXhSSGbPIKvUOjjGFEbZUM3DaN8MUYyYDMtNY0QFjJdMPJjMGa8NJWsPH ZcDNMbol7TBJKgBMBsQNL6CAIuBJJgYDMgRFehQHDt ZES8EFDvQTLpXVSpQP0LDoJtSYMgQLu3XgQbADAaYJNfze1BCLMbKYLfOZSyUQZwISAdKFUcJYe4aiWo uVBbWRe8HQ6WP5UsbuQeLDtJBv0Dt928AEK1KAArNa5EU2amQp0lSSJzQLWOKk9DOGh5YmuvZbMhQ8B0 FlK0EUI8Y2X3IBV0TIJ2YvIzAkyjXIZ+IDxmOGRiZD RvWeflHPC7QVSqZvn0XSIqSgKdMwP9U6D1Uk8gOXIBZw2+QYwndARwmKlqOIEKFoVuCbA1WRrcFQNNPu 0K ID Date Data Source [id number] 09/27/2019 08:25:09 PM [facility] Name Value Range Interpretation Code Description Data Sumaya rce(s) Supporting Document(s) Consultation [facility] SBBWHf7lQpFUAhSd76/BWBraOIVih7EaAZjxNTn2FLipUUHhK2SyNOM6dM9wNLH3APxZXlTaCZvrGdI7 lbm [file] AgICAgICAgICAgICAgICAgICAgICAgICAgICAgICAg ICAgICAgICAgICANCiAgICAgICAgICAgICAgICAgICAgICAgICAgICAgICAgICAgICAgICAgICAgICAg ICAgICAgICAgICAgICAgICAgICAgICAgICAgICAgICAgICAgICAgICAgICAgICAgICAgICANCiAgICAg ICAgICAgICAgICAgICAgICAgICAgICAgICAgICAgIC AgICAgICAgICAgICAgICAgICAgICAgICAgICAgICAgICAgICAgICAgICAgICAgICAgICAgICAgICAgIC AgICANCiAgICAgICAgICAgICAgICAgICAgICAgICAgICAgICAgICAgICAgICAgICAgICAgICAgICAgIC AgICAgICAgICAgICAgICAgICAgICAgICAgICAgICAg ICAgICAgICAgICAgICANCiAgICAgICAgICAgICAgICAgICAgICAgICAgICAgICAgICAgICAgICAgICAg ICAgICAgICAgICAgICAgICAgICAgICAgICAgICAgICAgICAgICAgICAgICAgICAgICAgICAgICANCiAg ICAgICAgICAgICAgICAgICAgICAgICAgICAgICAgIC AgICAgICAgICAgICAgICAgICAgICAgICAgICAgICAgICAgICAgICAgICAgICAgICAgICAgICAgICAgIC AgICAgICANCiAgICAgICAgICAgICAgICAgICAgICAgICAgICAgICAgICAgICAgICAgICAgICAgICAgIC AgICAgICAgICAgICAgICAgICAgICAgICAgICAgICAg ICAgICAgICAgICAgICAgICANCiAgICAgICAgICAgICAgICAgICAgICAgICAgICAgICAgICAgICAgICAg ICAgICAgICAgICAgICAgICAgICAgICAgICAgICAgICAgICAgICAgICAgICAgICAgICAgICAgICAgICAN CiAgICAgICAgICAgICAgICAgICAgICAgICAgICAgIC AgICAgICAgICAgICAgICAgICAgICAgICAgICAgICAgICAgICAgICAgICAgICAgICAgICAgICAgICAgIC AgICAgICAgICANCiAgICAgICAgICAgICAgICAgICAgICAgICAgICAgICAgICAgICAgICAgICAgICAgIC AgICAgICAgICAgICAgICAgICAgICAgICAgICAgICAg ICAgICAgICAgICAgICAgICAgICANCjw/eEMaS4lqkXMgyzW6P1ltGz6XDd9GIW7kw4FuVSIsORpbfwEt FpiJWyTgOGZpQsvQFyz0AZllYZ5HqONhQ0SbT7VpPDuiLC6PRQGcYWGokYVnSSXlCIDuFwG0JZFrEOhn ME7ViJVaHRbtEEGwTABsGcBuMNBkWTOtXOLuUYMjGA NXPONtBTFrGeCtFSMlAWBhAOlzKSVWWA0OTxYlA0IdbH57MSmUWf3+CTizulBgCmuHKwB9YOEsu8XvWH b7AV1WMDMzXxamx3UeCbHeXLULQXnpGD0MKON2WLC1UZZwFu5AKYEoM587bvRfPM9HNn3QSdLdDL3xni 0XLyVqAEPrEnpGQei9MAraBU3TbESlGDdVt26afPo0 ujRchCFHDGLsWOLcdRWPOVNbqFznaHtrCSSbGKPzWOOcIX7nHLD3TQD2SwEaLJHESQ1QKGHoYIFibAQc HMEyYLKIDB2XAOrgTPN7ZRGdlzTarJOrDKjpWK9BGQIcanCqLnDtFORIEFl+Ld5GPJ6qm6KxVKrxYtQa SO0kpz7NVPpQXnRgI9P4wAMgJ9Q2KXzqGk8RQLGqSM UcTtMvRAXNRSvpLZ2UDH9pgjX1ZH1MqPAcUFOkQYEufEFrGGv8M63qwWZyHAoxXS3UQWN+Savannah+Pg0KIC LpVEBrQORiMhQeCKAYThGbF3IeN8SPg3VrQ3VwUU35nTqhtwRjYLaxPO3BHL8kPZOxGJHTLZ8OwCLqfP 1lozUjTZKgEDWBSkTzY35zwZEgUSKtGYSkJPJsNd2X FLSsO3CeehSxrPygloAsXTHsJAWQNV7CPCpwphXpnGYguIpsMV83dDewGZ4BIc5VCgEfLO2ljr4DdLMn Fv0SLCXeIs2QXSPnFRBdQRFqASG9KAOnTpSgKWbeJSOfAGHmMRY7SWAjYPLzNH3CVnSnHXQsAzv1ZENz YYZfDQBghq9DTZIqPAMtNVL7HAHnULGqGXZqRLutGO LySEChRPR8GRYvWNBoDP7TKiMbVTLcBRA8GbFeLHGlLSCzkl8HLDAkWGJdVni8FNMqRAKgIZOjIAjkGW GlPGC1CPR0ULEuRQReRR5KZbCjPIEgBWstKrMwKQVsAPOiix8ERSNzZKHuRZS4CrPlMKUtGHUgUDuuMO EbUTIjHlnbUSQlPEKlXK8IBoPrZIJcHXQ0BdrmWKAu CZOqcc9OPDJoOQXcSlhsXRSaQOAfDHHpHMzhOPXcDJL2UlV8MNSnKSKoND1DAkVaEEQyNBH1RaVqOCQo GBKmdn2WJHHtTQDbDOL6BeXsHHRlNPGlEGquTXPvBDXmQaTeHZKnQYAbAM7UDbOfBRCuYyI5JKCfEVTt YMWxij0UTHOyMCPyMEP9SJPlRBFqBWJoIIbkPYDnII XwRDR6ZRRtPSHlXX2NTtWfNVZwHjLvVWXhQSWsKJOmyx7EDZKlPLCxDcVvOYSsNFUoUEGbXQuuVZEjVN ItHot2QXNkHWRtHY0AIaOhDNRxUmU1IQsgFNOkXOJaux4PPJVaZJWlHuq6KhXkKWHhVSCiIXfqUPNvRD U3DCxdULOaYMIxCY5LSrPnKKOqMmJ6LWRxMUJlKBSz lx6VMFGyOHWuPGL4FUAxHNTgHGEbPOdvPFErLME6TDA7DYSdUQFjWT6EJfBlNXLsMxXvTXWvXVGtUBNc kz4JXLGgJFCcWlNgPFVfRMTbYKHdERicJZOnHDO8WqQ4RZQiLOXvYK6ARrKdDFFyCafnQRByQKXuPMQe bd4TFCErDRAtVaovGMJgYGUhOMNhSNubOXRyDQV3Uy k9HGKkSKSeHH3FBvZqDIGbVnnaAmStXXEbQEBiar9PTGAmIHBgVRDcSwJnQIGmUPWaNEi9saUehVNpCO g1TF2OM0ZyvcVqGaeXNg4Eh388UKT4HQUeOc9FP7tgLx4wFBVnWKRRHs8SJCd8KEUnGKapBbA8SLlfRa PoQQsnTgJeYQJ4XGrgKoL4ATD+TAolFiQgE1XnUXP7 SPU3OFVeVxV6ZpAgWAX0SVZgPcf7Yt2vFUVGUd2+FMoljZZgjQxnTVDZHuA8KmTfQNkkMXVAIh2R ID Date Data Source [id number] 09/27/2019 08:12:12 PM [facility] Value Range Interpretation Code Description Data Sumaya rce(s) Supporting Document(s) Prothrombin time (PT) 14.2 s 12.5-14.9 [facility] INR in Platelet poor plasma by Coagulation assay 1.07 [facility] Routine intensity oral anticoagulation I NR is typically 2.0-3.0. Target INR must be clinically individualized. ID Date Data Source [id number] 09/27/2019 08:12:12 PM [facility] Value Range Interpretation Code Description Data Sumaya rce(s) Supporting Document(s) aPTT in Platelet poor plasma by Coagulation assay 27.5 s 24.0-34. 0 [facility] ID Date Data Source [id number] 09/27/2019 08:26:49 PM [facility] Value Range Interpretation Code Description Data Sumaya rce(s) Supporting Document(s) Bicarbonate [Moles/volume] in Serum 26 mmol/L 22-29 [facility] Chloride [Moles/volume] in Serum or Plasma 109 mmol/L 98-107 H [facility] Creatinine [Mass/volume] in Serum or Plasma 0.50 mg/dL 0.50-0.90 [facility] Icteric Glucose [Mass/volume] in Serum or Plasma 126 mg/dL 70-140 [facility] Potassium [Moles/volume] in Serum or Plasma 3.9 mmol/L 3.4-5.1 [facility] Sodium [Moles/volume] in Serum or Plasma 143 mmol/L 136-145 [facility] Urea nitrogen [Mass/volume] in Serum or Plasma 6 mg/dL 6-20 [facility] Anion gap 3 in Serum or Plasma 7 mmol/L 8-15 L [facility] Osmolality of Serum or Plasma by calculation 295 mosm/kg 275-300 [facility] Creatinine/Urea nitrogen [Mass Ratio] in Serum or Plasma 13 [facility] Calcium [Mass/volume] in Serum or Plasma 8.7 mg/dL 8.6-10.0 [facility] Glomerular filtration rate/1.73 sq M pre dicted among non-blacks [Volume Rate/Area] in Serum or Plasma by Creatinine-based formula (MDRD) >6 0 [facility] Glomerular filtration rate/1.73 sq M pre dicted among blacks [Volume Rate/Area] in Serum or Plasma by Creatinine-based formula (MDRD) >60 [facility] ID Date Data Source [id number] 09/27/2019 09:01:23 PM [facility] Name Value Range Interpretation Code Description Data Sumaya rce(s) Supporting Document(s) Leukocytes [#/volume] in Blood by Automated count 5.9 10*3/uL 4-10 [facility] Erythrocytes [#/volume] in Blood by Automated count 3.07 10*6/uL 4.1- 5.3 L [facility] Hemoglobin [Mass/volume] in Blood 7.8 g/dL 11.5-15.5 [facility] Hematocrit [Volume Fraction] of Blood by Automated count 24.0 % 3 6-45 L [facility] Erythrocyte mean corpuscular volume [Entitic volume] by Auto mated count 78.1 fL 80-96 L [facility] Erythrocyte mean corpuscular hemoglobin [Entitic mass] by Automated count 25.6 pg 27-33 L [facility] Erythrocyte mean corpuscular hemoglobin concentration [Mass/volume] by Automated count 32.7 g/dL 32.0-36.0 [facility] width [Ratio] by Automated count 16.5 % 11.5-14.5 H [facility] Platelets [#/volume] in Blood by Automated count 251 10*3/uL 150-400 [facility] Differential cell count method - Blood [facility] Neutrophils/100 leukocytes in Blood by Automated count 59 % [facility] Lymphocytes/100 leukocytes in Blood by Automated count 22 % [facility] Monocytes/100 leukocytes in Blood by Automated count 9 % [facility] Eosinophils/100 leukocytes in Blood by Automated count 9 % [facility] Neutrophils [#/volume] in Blood by Automated count 3.48 10*3/uL 1.8-7 .0 [facility] Lymphocytes [#/volume] in Blood by Automated count 1.30 10*3/uL 1.2-4 .0 [facility] Monocytes [#/volume] in Blood by Automated count 0.53 10*3/uL 0-0.8 [facility] Eosinophils [#/volume] in Blood by Automated count 0.53 10*3/uL 0-0.5 H [facility] Variant lymphocytes/100 leukocytes in Blood by Manual count 1 % [facility] Lymphocytes [#/volume] in Blood 0.06 10*3/uL 0 H [facility] Anisocytosis [Presence] in Blood by Light microscopy [facility] Elliptocytes [Presence] in Blood by Light [facility] Microcytes [Presence] in Blood by Light [facility] Poikilocytosis [Presence] in Blood by Light [facility] Polychromasia [Presence] in Blood by Light [facility] ID Date Data Source [id number] 09/27/2019 06:19:27 PM [facility] Name Value Range Interpretation Code Description Data Sumaya rce(s) Supporting Document(s) Glucose [Mass/volume] in Capillary blood by Glucometer 107 mg/dL 70- 140 [facility] ID Date Data Source [id number] 09/27/2019 02:14:00 PM [facility] Name Value Range Interpretation Code Description Data Sumaya rce(s) Supporting Document(s) Leukocytes [#/volume] in Blood by Automated count 8.0 10*3/uL 4.45-10 .71 N [facility] Erythrocytes [#/volume] in Blood by Automated count 3.56 10*6/uL 4.20-5.40 Below low normal [facility] Hemoglobin [Moles/volume] in Blood 8.8 g/dL 10.7-15.4 Below low no rmal [facility] Hematocrit [Volume Fraction] of Blood by Automated count 29.8 % 37-47 Below low normal [facility] Erythrocyte mean corpuscular volume [Ent itic volume] in Cord blood by Automated count 83.7 fL 80-96 N [facility] ital Erythrocyte mean corpuscular hemoglobin [Entitic mass] by Automated count 24.7 pg 27-31 Below low normal [facility] pital Erythrocyte mean corpuscular hemoglobin concentration [Mass/volume] in Cord blood 29.5 g/dL 33-37 Below low normal [facility] Erythrocyte distribution width [Entitic volume] by Automated count 15 % 11-15 N [facility] Platelets [#/volume] in Blood by Automated count 298 10*3/uL 130-472 N [facility] Platelet mean volume [Entitic volume] in Blood 9.8 fL 9.1-13.1 N [facility] Neutrophils/100 leukocytes in Blood by Automated count 60.7 % 41- 77 N [facility] Neutrophils [#/volume] in Blood by Automated count 4.9 U 1.7-7.6 N [facility] Lymphocytes/100 leukocytes in Blood by Automated count 21.3 % 14- 46 N [facility] Lymphocytes [#/volume] in Blood by Automated count 1.7 U 0.6-4.6 N [facility] Monocytes/100 leukocytes in Blood by Automated count 10.4 % 4-12 N [facility] Monocytes [#/volume] in Blood by Automated count 0.8 U 0.2-1.2 N [facility] Eosinophils/100 leukocytes in Blood by Automated count 6.8 % 0-7 N [facility] Eosinophils [#/volume] in Blood by Automated count 0.5 U 0.0-0.5 N [facility] Basophils/100 leukocytes in Blood by Automated count 0.4 % 0.4-1 .3 N [facility] Basophils [#/volume] in Blood by Automated count 0.0 U 0.0-0.2 N [facility] NUCLEATED RED BLOOD CELL 0 % [facility] NUCLEATED RED BLOOD CELL# 0 U [facility] Immature granulocytes [Presence] in Blood by Automated count 0-2 N [facility] Immature granulocytes [#/volume] in Blood by Automated count 0.0 U 0-0.1 N [facility] Manual Differential panel - Blood NO [facility] ID Date Data Source [id number] 09/27/2019 10:09:00 AM EST [facility] Reason for ordering culture: Abnormal fi ndings UA@09/27/19 0938: UA W/ MICRO added. RFLXG = UMIC CIF.Method of Collection:: Voided @09/27/19 1009: Urine culture added. RFL XG = CULT.ADD.50,000 CFU/MLStaph spp, Strep spp, Corynebacterium sppFew gram neg organisms seenProbable contaminants no senst done Reason for ordering culture: Abnormal fi ndings UA@09/27/19 0938: UA W/ MICRO added. RFLXG = UMIC CIF.Method of Collection:: Voided Name Value Range Interpretation Code Description Data Sumaya rce(s) Supporting Document(s) Color of Urine [facility] Appearance of Urine CLEAR [facility] pH of Urine by Test strip 6.0 5-8 [facility] Specific gravity of Urine by Refractometry 1.013 1.005-1.030 [facility] Leukocyte esterase [Presence] in Urine by Test strip NEGATIVE Abnormal (applies to non-numeric results) [facility]A Culture has been added to this specimen per established criteria Nitrite [Presence] in Urine by Test strip NEGATIVE [facility] Protein [Presence] in Urine by Test strip NEGATIVE [facility] Glucose [Mass/volume] in Urine by Automated test strip NEGATIVE NEG ATIVE [facility] Ketones [Presence] in Urine by Test strip NEGATIVE [facility] Urobilinogen [Presence] in Urine 0.2-1 EU/dl [facility] Bilirubin.total [Presence] in Urine by Automated test strip NEGATIVE [facility] Erythrocytes [#/volume] in Urine by Test strip TRACE NEGATIV E Above high normal [facility] @DO MICRO!!!! URINE MICROSCOPIC? (CIF) Microscopic Added [facility] ID Date Data Source [id number] 09/28/2019 08:15:00 AM [facility] Reason for ordering culture: Abnormal fi ndings UA@09/27/19 0938: UA W/ MICRO added. RFLXG = UMIC CIF.Method of Collection:: Voided @09/27/19 1009: Urine culture added. RFL XG = CULT.ADD.50,000 CFU/MLStaph spp, Strep spp, Corynebacterium sppFew gram neg organisms seenProbable contaminants no senst done Reason for ordering culture: Abnormal fi ndings UA@09/27/19 0938: UA W/ MICRO added. RFLXG = UMIC CIF.Method of Collection:: Voided Name Value Range Interpretation Code Description Data Sumaya rce(s) Supporting Document(s) ID Date Data Source [id number] 09/27/2019 10:09:00 AM [facility] Reason for ordering culture: Abnormal fi ndings UA@09/27/19 0938: UA W/ MICRO added. RFLXG = UMIC CIF.Method of Collection:: Voided @09/27/19 1009: Urine culture added. RFL XG = CULT.ADD.50,000 CFU/MLStaph spp, Strep spp, Corynebacterium sppFew gram neg organisms seenProbable contaminants no senst done Reason for ordering culture: Abnormal fi ndings UA@09/27/19 0938: UA W/ MICRO added. RFLXG = UMIC CIF.Method of Collection:: Voided Name Value Range Interpretation Code Description Data Sumaya rce(s) Supporting Document(s) Erythrocytes [#/volume] in Urine by Manual count OCCASIONAL 0-5 [facility] Leukocytes [#/volume] in Urine by Manual count OCCASIONAL 0-5 [facility] Cells [Type] in Urine sediment by Light microscopy [facility] ID Date Data Source [id number] 09/27/2019 07:10:00 AM [facility] Special Instructions: Lab may order repe at test if initial test elevatedPhysician If elevated, reflex second test in 4-6 hrs Name Value Range Interpretation Code Description Data Sumaya rce(s) Supporting Document(s) Leukocytes [#/volume] in Blood by Automated count 6.2 10*3/uL 4.45-10 .71 N [facility] Erythrocytes [#/volume] in Blood by Automated count 3.56 10*6/uL 4.20-5.40 Below low normal [facility] Hemoglobin [Moles/volume] in Blood 8.9 g/dL 10.7-15.4 Below low no rmal [facility] Hematocrit [Volume Fraction] of Blood by Automated count 29.3 % 37-47 Below low normal [facility] Erythrocyte mean corpuscular volume [Ent itic volume] in Cord blood by Automated count 82.3 fL 80-96 N [facility] ital Erythrocyte mean corpuscular hemoglobin [Entitic mass] by Automated count 25.0 pg 27-31 Below low normal [facility] pital Erythrocyte mean corpuscular hemoglobin concentration [Mass/volume] in Cord blood 30.4 g/dL 33-37 Below low normal [facility] Erythrocyte distribution width [Entitic volume] by Automated count 15 % 11-15 N [facility] Platelets [#/volume] in Blood by Automated count 315 10*3/uL 130-472 N [facility] Platelet mean volume [Entitic volume] in Blood 9.7 fL 9.1-13.1 N [facility] Neutrophils/100 leukocytes in Blood by Automated count 67.0 % 41- 77 N [facility] Neutrophils [#/volume] in Blood by Automated count 4.2 U 1.7-7.6 N [facility] Lymphocytes/100 leukocytes in Blood by Automated count 14.9 % 14- 46 N [facility] Lymphocytes [#/volume] in Blood by Automated count 0.9 U 0.6-4.6 N [facility] Monocytes/100 leukocytes in Blood by Automated count 9.5 % 4-12 N [facility] Monocytes [#/volume] in Blood by Automated count 0.6 U 0.2-1.2 N [facility] Eosinophils/100 leukocytes in Blood by Automated count 7.8 % 0-7 Above high normal [facility] Eosinophils [#/volume] in Blood by Automated count 0.5 U 0.0-0.5 N [facility] Basophils/100 leukocytes in Blood by Automated count 0.5 % 0.4-1 .3 N [facility] Basophils [#/volume] in Blood by Automated count 0.0 U 0.0-0.2 [facility] NUCLEATED RED BLOOD CELL 0 % [facility] NUCLEATED RED BLOOD CELL# 0 U [facility] Immature granulocytes [Presence] in Blood by Automated count 0-2 N [facility] Immature granulocytes [#/volume] in Blood by Automated count 0.0 U 0-0.1 N [facility] Manual Differential panel - Blood NO [facility] ID Date Data Source [id number] 09/27/2019 07:35:00 AM EST [facility] Special Instructions: Lab may order repe at test if initial test elevatedPhysician If elevated, reflex second test in 4-6 hrs Name Value Range Interpretation Code Description Data Sumaya rce(s) Supporting Document(s) Urea nitrogen [Mass/volume] in Serum or Plasma 9 mg/dL 9-23 N [facility] Sodium [Moles/volume] in Serum or Plasma 141 mmol/L 132-146 N [facility] Potassium [Moles/volume] in Serum or Plasma 4.0 mmol/L 3.5-5.5 [facility] Chloride [Moles/volume] in Serum or Plasma 108 mmol/L 99-109 [facility] Carbon dioxide, total [Moles/volume] in Serum or Plasma 25 mmol/L 20 -31 N [facility] Anion gap in Serum or Plasma 12 mmol/L 8-16 N [facility] Glucose [Mass/volume] in Serum or Plasma 114 mg/dL 74-106 Above high normal [facility] Creatinine 0.7 mg/dL 0.5-1.1 [facility] Glomerular filtration rate/1.73 sq M.pre dicted [Volume Rate/Area] in Serum or Plasma Greater Than 60 ABOVE 60 [facility] Alanine aminotransferase [Enzymatic acti vity/volume] in Serum or Plasma by With P-5'-P 21 U/L 10-49 [facility] ital Aspartate aminotransferase [Enzymatic ac tivity/volume] in Serum or Plasma by With P-5'-P 9 U/L 0-33 [facility] pital Alkaline phosphatase [Enzymatic activity/volume] in Serum or Plasma 102 U/L 45-129 N [facility] Calcium [Mass/volume] in Serum or Plasma 9.3 mg/dL 8.5-10.1 [facility] Bilirubin.total [Mass/volume] in Serum or Plasma 0.4 mg/dL 0.3-1.2 [facility] Albumin [Mass/volume] in Serum or Plasma by Bromocresol purple (BCP) dye binding method 3.8 g/dL 3.2-4.8 [facility] ital Protein [Mass/volume] in Serum or Plasma 7.6 g/dL 5.7-8.2 [facility] ID Date Data Source [id number] 09/27/2019 07:36:00 AM EST [facility] Special Instructions: Lab may order repe at test if initial test elevatedPhysician If elevated, reflex second test in 4-6 hrs Name Value Range Interpretation Code Description Data Sumaya rce(s) Supporting Document(s) Lactate [Moles/volume] in Serum or Plasma 1.5 mmol/L 0.5-2.2 [facility] ID Date Data Source [id number] 10/02/2019 07:07:00 AM [facility] Special Instructions: Lab may order repe at test if initial test elevatedPhysician If elevated, reflex second test in 4-6 hrs Name Value Range Interpretation Code Description Data Sumaya rce(s) Supporting Document(s) Bacteria identified in Blood by Culture [facility] NO GROWTH AFTER 5 DAYS ID Date Data Source [id number] 09/27/2019 07:35:00 AM [facility] Special Instructions: Lab may order repe at test if initial test elevatedPhysician If elevated, reflex second test in 4-6 hrs Name Value Range Interpretation Code Description Data Sumaya rce(s) Supporting Document(s) Amylase [Enzymatic activity/volume] in Serum or Plasma 86 U/L 30- 118 [facility] ID Date Data Source [id number] 09/27/2019 07:35:00 AM [facility] Special Instructions: Lab may order repe at test if initial test elevatedPhysician If elevated, reflex second test in 4-6 hrs Name Value Range Interpretation Code Description Data Sumaya rce(s) Supporting Document(s) Lipase [Enzymatic activity/volume] in Serum or Plasma 846 U/L 73-393 Above high normal [facility] @Review & document.Repeated by: Bita wasserman 09/27/19 0735.Result Confirmation: 860 U/L ID Date Data Source [id number] 09/27/2019 07:35:00 AM [facility] Special Instructions: Lab may order repe at test if initial test elevatedPhysician If elevated, reflex second test in 4-6 hrs Name Value Range Interpretation Code Description Data Sumaya rce(s) Supporting Document(s) Troponin I.cardiac [Mass/volume] in Serum or Plasma Less Than 0.015 0.00-0.09 [facility] Less than 0.09 NG/ML Negative0.10 - 0.77 NG/ML High Risk0.78 NG/ML or Greater PositiveThe WHO defined the cutoff (definition for diagnosis of RI)for this method as 0.78 ng/ml. ID Date Data Source [id number] 09/27/2019 01:52:00 PM [facility] [id number] ON PC TRANSFUSED 09/27/19 1221 Order product and Administer when availa ble: YHGB: 8.9Physiological Evidence Patient needs more Hemoglobin Acute BleedingBlood warmer used? N:: NTransfused within 90 days?: DONT KNOWPre Op? (IF Yes, give date): N Name Value Range Interpretation Code Description Data Sumaya rce(s) Supporting Document(s) ID Date Data Source [id number] 09/27/2019 01:52:00 PM [facility] [id number] ON PC TRANSFUSED 09/27/19 1221 Order product and Administer when availa ble: YHGB: 8.9Physiological Evidence Patient needs more Hemoglobin Acute BleedingBlood warmer used? N:: NTransfused within 90 days?: DONT KNOWPre Op? (IF Yes, give date): N Name Value Range Interpretation Code Description Data Sumaya rce(s) Supporting Document(s) Blood bank studies (set) Yes [facility] Blood Type [facility] Antibody Screen NEGATIVE [facility] ID Date Data Source [id number] 09/27/2019 06:43:00 AM [facility] ED Physician Documentation NAME: NI DIAZ : 1980 AGE: 39 MR#: [id number] SERVICE DATE: 09/27/[address]: Mich Torres MD PRIMARY CARE DR: Cynthia Simmons MD ROOM#: ADDENDUM Discharge Plan Admission/Discharge Dx Primary DC Diagnosis: Acute pancreatitis, upper GI bleed ED Provider: Mich Torres ED Status: Physician Time Seen by Provider: 09/27/19 06:39 Triaged At: 09/27/19 06:32 Condition Condition at Discharge: Stable Discharge Detail Disposition: Transfer - Acute Care Hospital Med Rec New Prescriptions: No Action zolpidem [Ambien CR] 6.25 mg Tablet,Ext Release Multiphase 6.25 mg PO PRN PRN (Reason: (Drug) Ingestion) RF: 0 ondansetron 8 mg Film 8 mg PO Q6H PRN (Reason: Nausea) RF: 0 promethazine [Phenergan] 25 mg/mL Solution 25 mg IM Q6HR PRN (Reason: (Drug) Ingestion) RF: 0 pantoprazole [Protonix] 20 mg Tablet,Delayed Release (Dr/Ec) 40 mg PO DAILY RF: 0 fluoxetine 20 mg Tablet 20 mg PO DAILY RF: 0 oxycodone [Roxicodone] 5 mg tablet 5 mg PO PRN PRN (Reason: Pain) RF: 0 *Discharge Patient* Discharge Orders: Provider hand off (NOW); Ordered 09/27/19 Ordered By: Mich Torres Interventions Interventions: ED GI Gastrointestinal Last Done: 09/27/19 06:56 Course Reevaluation(s) Reevaluation #1: 3 PM-at about 10:15 AM patient started draining betsey blood from her jejunostomy tube and about 100 mL of betsey red blood was aspirated from the jejunostomy tube. No further bleeding after that from the jejunostomy tube. Patient's systolic blood pressure dropped to between 90-92 shortly after the blood drainage from the jejunostomy tube. Patient received 1 unit of packed RBCs and IV fluids. The hospitalist Dr. Valdez evaluated the patient in the ED and he wants the patient transferred to another hospital where she can see a correctional classification counselor for upper GI bleeding for possible emergency EGD. I discussed the patient with the ICU attending Dr. Block at [facility] in [facility]. He accepted the patient for transfer. Critical care time spent managing patient's upper GI bleed and hemodynamic instability is 40 minutes Addended by: <Electronically signed by Mich Torres MD> 09/27/19 1502 Addendum Cosigners: D: MARIA ANTONIA 09/27/19 1502 T: MARIA ANTONIA 09/27/19 1502 CC: Cynthia Simmons MD HPI (Adult, General) <Raymundo Frazier MD - Last Filed: 09/27/19 06:50> General Chief Complaint: GI Stated Complaint: RAPID HEART BEAT Resident LT, travel outisde home, exposure to hot tubs:: No Time Seen by Provider: 09/27/19 06:39 Source: patient Exam Limitations: clinical condition History of Present Illness Narrative: 39-year-old white female history of 2009 gastric bypass multiple subsequent complications with revision approximately 1 month ago at [facility] with approximately 24-hour history of increasing sharp cramping pain lower abdominal especially of the right lower quadrant with increase in her usual nausea and vomiting. Some chills no shaking chills or overt fever. Patient history is extensive with ongoing central line for TPN and jejunostomy tube for tube feeding, etc. patient chief complaint reads fast heart rate but this is a secondary phenomenon to the above presently. No chest pain or pressure palpitations diaphoresis near syncope. Review of systems otherwise acutely noncontributory PMH PSH and EMR data is extensive and apprec iated , , , Past Medical History Past Medical History: Nursing Past Medical History Has Been Reviewed Allergies/Home Meds Allergies Allergy/AdvReac Type Severity Reaction Status Date / Time levofloxacin [From Levaquin] Allergy Severe Anaphylaxis Verified 09/27/19 06:52 NSAIDS (Non-Steroidal Allergy Severe Abnormal Verified 09/27/19 06:52 Anti-Inflamma Coagulation Sulfa (Sulfonamide Allergy Severe Anaphylaxis Verified 09/27/19 06:52 Antibiotics) tomato Allergy Severe Anaphylaxis Verified 09/27/19 06:52 trazodone Allergy Severe Dyspnea Verified 09/27/19 06:52 Home Medications Medication Instructions Recorded Confirmed Last Taken Type ondansetron 8 mg PO Q6H PRN 05/06/19 09/27/19 09/27/19 02:00 History zolpidem [Ambien CR] 6.25 mg PO PRN PRN 05/06/19 09/27/19 09/26/19 20:00 History promethazine [Phenergan] 25 mg IM Q6HR PRN 05/07/19 09/27/19 Unknown History fluoxetine 20 mg PO DAILY 05/30/19 09/27/19 09/26/19 08:00 History oxycodone [Roxicodone] 5 mg PO PRN PRN 05/30/19 09/27/19 05/30/19 History pantoprazole [Protonix] 40 mg PO DAILY 05/30/19 09/27/19 05/30/19 History Medication list updated and reviewed:: Yes Pain Assessment Pain Location: as above Pain Intensity: 7 Pain Scale Used: Numeric Scale Pain Radiation Location: na ER plan Plan of care and ER treatment: Patient encouraged to ask questions about plan and ER treatments and Patient agrees with ER plan of care Plan: As per ED orders PMH (from Triage) <Raymundo Frazier MD - Last Filed: 09/27/19 06:50> Patient Medical History PMH/PSH from Triage: Medical History (Updated 05/07/19 @ 12:03 by Justus Evans) Complications of gastric bypass surgery (Acute Medical) K91.89, Y83.2 Chronic GI Bleed Deep vein thrombosis (DVT) (Acute Medical) I82.409 Right Jugular and subclavian Gastroparesis (Acute Medical) K31.84 Racing heart beat (Acute Medical) R00.0 Surgical History (Updated 09/27/19 @ 06:51 by Milla Lobato RN) H/O abdominal surgery (Acute Surgical) Z98.890 J and G tube Placements last done 2018. Now removed. H/O gastric bypass (Acute Surgical) Z98.84 2009 H/O spinal fusion (Acute Surgical) Z98.1 2015-6 PT. unsure of date H/O Spinal surgery (Acute Surgical) Z98.890 2014 Spacers prior to spinal fusion. H/O: hysterectomy (Acute Surgical) Z90.710 2012 History of bowel resection (Acute Surgical) Z90.49 2016, Due to Bleed History of cholecystectomy (Acute Surgical) Z90.49 2010 History of tonsillectomy and adenoidectomy (Acute Surgical) Z98.890 Hx Drug Resistant Infections Hx MRSA: (Methicillin-resistant Staphylococcus aureus): Yes ( 05/20/18 j-tube) Hx VRE (Vancomycin-resistant enterococci): No Hx C.Diff: No Hx CRKP: No Isolation: Standard precautions Hx Recent Travel Out of the country within 10 days (where): No Hx Fever: No Hx Fever with a rash?: No Social History Does patient have suicidal/homicidal thoughts or ideation?: No Are you in a relationship with/Does anyone hit you, yell/swear at you, steal from you?: No Substance Use Hx Alcohol Use: No Hx Substance Use: No Vaccination History Hx/Date of Tetanus, Diphtheria Vaccination: Yes Hx/Date of Influenza Vaccination: No Hx/Date of Pneumococcal Vaccination: No <Mich Torres MD - Last Filed: 09/27/19 10:03> Patient Medical History PMH Reviewed/Updated as Needed: Yes PMH/PSH from Triage: Medical History (Updated 05/07/19 @ 12:03 by Justus Evans) Complications of gastric bypass surgery (Acute Medical) K91.89, Y83.2 Chronic GI Bleed Deep vein thrombosis (DVT) (Acute Medical) I82.409 Right Jugular and subclavian Gastroparesis (Acute Medical) K31.84 Racing heart beat (Acute Medical) R00.0 Surgical History (Updated 09/27/19 @ 06:51 by Milla Lobato RN) H/O abdominal surgery (Acute Surgical) Z98.890 J and G tube Placements last done 2018. Now removed. H/O gastric bypass (Acute Surgical) Z98.84 2008 H/O spinal fusion (Acute Surgical) Z98.1 2015-6 PT. unsure of date H/O Spinal surgery (Acute Surgical) Z98.890 2014 Spacers prior to spinal fusion. H/O: hysterectomy (Acute Surgical) Z90.710 2012 History of bowel resection (Acute Surgical) Z90.49 2016, Due to Bleed History of cholecystectomy (Acute Surgical) Z90.49 2009 History of tonsillectomy and adenoidectomy (Acute Surgical) Z98.890 ROS <Raymundo Frazier MD - Last Filed: 09/27/19 06:50> Review of Systems Constitutional: Reports chills, weakness and malaise; Denies fever and sweats Eyes: Denies vision change, eye discharge/drng and eye pain ENT: Denies mouth pain, mouth swelling, dental pain, ear pain, nasal pain, throat pain, throat swelling and recent head trauma Respiratory: Denies cough, SOB, stridor, wheezing, hemoptysis and pleuritic pain Cardiovascular: Reports light headedness and other (Fast heartbeat noted but is sinus rhythm in the 120s 130 range); Denies chest pain, paroxysmal noc dyspnea, dyspnea on exertion, leg cramps w/walking and pain in feet/toes at night G astrointestinal: Reports nausea, vomiting, abdominal pain and diarrhea; Denies constipation, hematemesis, black tarry stools, melena, hematochezia, coffee grounds emesis and hx of jaundice Genitourinary-Female: Reports other (Creased urinary output); Denies dysuria, frequency, hematuria, retention and urgency Musculoskeletal: Denies neck pain, shoulder pain, arm pain and hand pain Skin/Breasts: Denies rash and pruritus Neurologic: Denies headache, incoordination, change in speech, confusion and abnormal gait Psychiatric: Reports anxiety Endocrine: Denies Excessive sweating, Intolerance to cold, Polydipsia, Polyuria and Unexplained weight loss Hematological/Lymphatic: Denies easy bleeding and easy bruising Allergic/Immunologic: Denies rash, night sweats, wheals and flare Physical Exam <Raymundo Frazier MD - Last Filed: 09/27/19 06:50> General Limitations: physical limitation General appearance: alert, anxious and in distress Head Head exam: Present atraumatic, normocephalic and normal inspection Eye Eye exam: Present normal apperance, PERRL and EOMI Pupils: Present normal accommodation ENT ENT exam: Present normal exam, normal orophraynx, mucous membranes dry and normal external ear exam Neck Neck exam: Present normal inspection, full ROM and supple; Absent tenderness, meningismus, lymphadenopathy and thyromegaly Respiratory Respiratory exam: Present normal lung sounds bilaterally and decreased breath sounds; Absent respiratory distress, chest wall tenderness and prolonged expiratory Cardiovascular Cardiovascular Exam: Present regular rate, normal rhythm, tachycardia, normal heart sounds and no murmur; Absent rubs, gallop, clicks, JVD, S3 and S4 GI/Abdominal GI/Abdominal exam: Present soft, distended, tenderness (Right greater than left lower quadrant deep palp tenderness J-tube intact and patent no guarding rigidity or rebound), hyperactive bowel sounds and other (as above); Absent guarding, rebound, org anomegaly and pulsatile mass Rectal Rectal exam: Present deferred and normal rectal tone (per pt ) Extremities Exam Extremities exam: Present Full ROM without tenderness, capillary refill brisk and capillary refill brisk; Absent tenderness and calf tenderness Back Exam Back exam: Present normal inspection and full ROM; Absent CVA tenderness (R), CVA tenderness (L), paraspinal tenderness and vertebral tenderness Neurological Exam Neurological exam: Present alert, oriented X3, CN II-XII intact and normal gait; Absent motor sensory deficit Psychiatric Psychiatric exam: Present normal affect and anxious Skin Skin exam: Present dry, intact and pallor; Absent rash and cyanosis Vital Signs Vital Signs: Vital Signs 09/27/19 06:32 09/27/19 07:56 Temperature 97.7 F Pulse Rate 118 H 84 Respiratory Rate 16 Blood Pressure 111/78 O2 Sat by Pulse Oximetry 97 <Mich Torres MD - Last Filed: 09/27/19 10:03> Vital Signs Vital Signs: Vital Signs 09/27/19 06:32 09/27/19 07:56 Temperature 97.7 F Pulse Rate 118 H 84 Respiratory Rate 16 Blood Pressure 111/78 O2 Sat by Pulse Oximetry 97 MDM (comprehensive) <Raymundo Frazier MD - Last Filed: 09/27/19 06:50> Lab Data Labs: 09/27/19 07:00 12 07:00 Laboratory Results Last 24 hours 09/27/19 07:00: WBC 6.2, RBC 3.56 L, Hgb 8.9 L, Hct 29.3 L, MCV 82.3, MCH 25.0 L, MCHC 30.4 L, RDW 15, Plt Count 315, MPV 9.7, Immature Gran % (Auto) 0.3, Neut % (Auto) 67.0, Lymph % (Auto) 14.9, Clay % (Auto) 9.5, Eos % (Auto) 7.8 H, Baso % (Auto) 0.5, Lymph # (Auto) 0.9, Abs Immat Gran (auto) 0.0, Add Manual Diff No, Absolute Neutrophils 4.2, Monocytes # 0.6, Absolute Eosinophils 0.5, Absolute Basophils 0.0 09/27/19 07:00: Sodium 141, Potassium 4.0, Chloride 108, Carbon Dioxide 25, Anion Gap 12, BUN 9, Creatinine 0.7, GFR Calculation Greater than 60, Glucose 114 H, Calcium 9.3, Total Bilirubin 0.4, AST 9, ALT 21, Alkaline Phosphatase 102, Troponin I Less than 0.015, Serum Total Protein 7.6, Albumin 3.8, Amylase 86, Lipase 846 H 09/27/19 07:00: Lactic Acid 1.5 09/27/19 08:19: Add Ur Microanalysis Microscopic added Medical [place] on Making Free Text/Narative:: 0700 case signed out to Dr Torres <Mich Torres MD - Last Filed: 09/27/19 10:03> Lab Data Labs: 09/27/19 07:00 09/27/19 07:00 Laboratory Results Last 24 hours 09/27/19 07:00: WBC 6.2, RBC 3.56 L, Hgb 8.9 L, Hct 29.3 L, MCV 82.3, MCH 25.0 L, MCHC 30.4 L, RDW 15, Plt Count 315, MPV 9.7, Immature Gran % (Auto) 0.3, Neut % (Auto) 67.0, Lymph % (Auto) 14.9, Clay % (Auto) 9.5, Eos % (Auto) 7.8 H, Baso % (Auto) 0.5, Lymph # (Auto) 0.9, Abs Immat Gran (auto) 0.0, Add Manual Diff No, Absolute Neutrophils 4.2, Monocytes # 0.6, Absolute Eosinophils 0.5, Absolute Basophils 0.0 09/27/19 07:00: Sodium 141, Potassium 4.0, Chloride 108, Carbon Dioxide 25, Anion Gap 12, BUN 9, Creatinine 0.7, GFR Calculation Greater than 60, Glucose 114 H, Calcium 9.3, Total Bilirubin 0.4, AST 9, ALT 21, Alkaline Phosphatase 102, Troponin I Less than 0.015, Serum Total Protein 7.6, Albumin 3.8, Amylase 86, Lipase 846 H 09/27/19 07:00: Lactic Acid 1.5 09/27/19 08:19: Add Ur Microanalysis Microscopic added EKG Data -: EKG Interpreted by Me EKG Data EKG comments: Normal sinus rhythm, 95/min, normal axis and intervals, no acute ST-T abnormality Radiology Data Radiology results: report reviewed Radiology impressions: Chest x-ray-no acute disease CT abdomen and rlxxqq-hbcwp-fdkmbp loops of bowel, no acute disease Medical Decision Making Free Text/Narative:: 10 AM-patient signed out to me by Dr. Frazier. I reviewed his note and examined the patient. Patient is here for diffuse abdominal pain. On examination she has mild to moderate diffuse tenderness. Her lipase is elevated. She has acute pancreatitis. I discussed the patient with the hospitalist Dr. Valdez. He accepted the patient for admission Differential Diagnosis Differential Diagnosis: Pancreatitis, small bowel obstruction Discharge Plan Admiss ion/Discharge Dx Primary (Admit) Diagnosis: Acute pancreatitis ED Provider: Mich Torres ED Status: Physician Time Seen by Provider: 09/27/19 06:39 Triaged At: 09/27/19 06:32 Condition Condition at Discharge: Stable Discharge Detail Disposition: [facility] New Prescriptions: No Action zolpidem [Ambien CR] 6.25 mg Tablet,Ext Release Multiphase 6.25 mg PO PRN PRN (Reason: (Drug) Ingestion) RF: 0 ondansetron 8 mg Film 8 mg PO Q6H PRN (Reason: Nausea) RF: 0 promethazine [Phenergan] 25 mg/mL Solution 25 mg IM Q6HR PRN (Reason: (Drug) Ingestion) RF: 0 pantoprazole [Protonix] 20 mg Tablet,Delayed Release (Dr/Ec) 40 mg PO DAILY RF: 0 fluoxetine 20 mg Tablet 20 mg PO DAILY RF: 0 oxycodone [Roxicodone] 5 mg tablet 5 mg PO PRN PRN (Reason: Pain) RF: 0 *Discharge Patient* Discharge Orders: Provider hand off (NOW); Ordered 09/27/19 Ordered By: Mich Torres Interventions Interventions: ED GI Gastrointestinal Last Done: 09/27/19 06:56 Report Signers: <Electronically signed by Mich Torres MD> Mich Torres MD 09/27/19 1004 Raymundo Frazier MD SIGNATURE DA Report Cosigners: D: CHAN 09/27/19 0643 T: CHAN 09/27/19 0643 CC: Cynthia Simmons MD Name Value Range Interpretation Code Description Data [facility] rce(s) Supporting Document(s) ID Date Data Source [id number] 09/22/2019 07:59:36 AM EST [facility] Name Value Range Interpretation Code Description Data [facility] rce(s) Supporting Document(s) Progress Note [facility] YZACRy6yAkNCNoQp58/CEMzkGAIoz3YkOPqzVKe5CIamOMQxV6RiZUS3oV0sMXM7OTrLSxFjMSesIfWv [facility] SiYusGRsBoTTQrYzeXPwKwROpsYhlkuANdJA4MsWJ1VIRyZ34xRUXxPPGbL3YlOYCfOZf+Rj7BTHBlvZ ApOA4EBhjS3X4XocM5LT6EgN8GDQKvm/DRF/oubuYvD1P8ze4tF0XdCXwOU2dZhyK2VGtrdA+fVh+Sqk M1dbdvBYES1cTEDvXrStDZ3QMK7A+/b68WWlYy3t5j /gwiR/SG4s9/QjtmtoQMhduBWVBYNOl6lyaY4kmco5718mk9h8FAbNo6rmZ8J0HvX5xV4Ha3/93RfWfy EHfHg+eZLHz1X9CJzLW99s9kE2FnZ6jP6j1RH9p6p+KrOX4WmiabpkannI465kZbTIvd++8PbI4LyBKc OTeRh3iYsiFM0GaBEtuE/NJfWN0WueDQGLnqSlZIMI yahZ/JjysZEvvMk6FWbw7Mn+pyRAfvbxo1HakZ2Ej2tExncYjKg9oUpuZ4lPk3fhbqXnRWfbGW114TV7 k/k7kZ+XRuJqCXsTx20Vkfo3oL7vZheKa/WU9oKYMlcWJx/ySciyxrgYRQvSi6SRX2Oji9gugrjBk+9N 8uUmxytEfq12+7a7R8gK3FoIjWgcqHZDEdS/uJnU0N klExuX2pS5bvAQ1/tsT1py/hT5E3nzNSzgv+zIU6U7YHcebJnA6b3t6ptxH9H4jkcnd6EMIuC9iY+lmT VjxjavPvAJdeyV7rHtj9koCIzVwtSp86pKnAtyHTybizhqXPv/Dheeraj+/FFuYHZxumT65pt0aor5YBwgjUn [file] AgICAgICAgICAgICAgICAgICAgICAgICAgICAgICAgICAgICAgICAgICAgICAgICAgICAgICAgICAgIC MtWLDlRTQxVVZkAMShCYOlKZAdXFSaROZeUXNeVRJwCTBmHIAfZB5FSBNcVKJfEKKyGVCbJNXoZEZdZI AgICAgICAgICAgICAgICAgICAgICAgICAgICAgICAg LOGyYFOwDPZqOTVqYIVtPPRzXOHmECJuDSVgWMDkTMXcNCRwORFjEWHvVHZvDSAwPB8SFFVeWRMhVERm ICAgICAgICAgICAgICAgICAgICAgICAgICAgICAgICAgICAgICAgICAgICAgICAgICAgICAgICAgICAg ICAgICAgICAgICAgICAgICAgICAgICAgICAgICAgIA 0KICAgICAgICAgICAgICAgICAgICAgICAgICAgICAgICAgICAgICAgICAgICAgICAgICAgICAgICAgIC PzZYVcGESxOMZlJTSuUROzGEQoAXTyIBBxOODwMDOvMKArABLcHFAiDE6CQLLgEFTwFOByGGQrOZTpHQ AgICAgICAgICAgICAgICAgICAgICAgICAgICAgICAg NKKoFABaSDAyNIObMOShQBDhJHZeINCrSRRjUCIaETBwFFOtMNFyYNQcXLDfAGBwWZFbDT3CAPYtBDLq ICAgICAgICAgICAgICAgICAgICAgICAgICAgICAgICAgICAgICAgICAgICAgICAgICAgICAgICAgICAg ICAgICAgICAgICAgICAgICAgICAgICAgICAgICAgIC GaWL8DTJGwMWZtXTFrIUGjGJPhFZJsXAMnBGLmKHKlJUSyAJMfWJJyATKiLCGhJBPkQZBqCXBsOWGcXR YxPEVcSCHiDYOiKEKeCJVwHMRqYMDdNEPuNUTmIVRbSFKdAWVyLEGqTMKrYW0KWQNaBDOpBFUwMFDaQZ AgICAgICAgICAgICAgICAgICAgICAgICAgICAgICAg GFBtDPPkFKDfKWRnYBOkSINaXEZaWZEkMXJqHWCcKBShCSUuMRJnDCIqVTEgCXZnMCJwEUKoOK1QFCYa ICAgICAgICAgICAgICAgICAgICAgICAgICAgICAgICAgICAgICAgICAgICAgICAgICAgICAgICAgICAg ICAgICAgICAgICAgICAgICAgICAgICAgICAgICAgIC MqKAVmLQ1XQGHjDVFoMRJbVZVjGGDcFFLgNSYgPHSpOZVqHTGvRPMjSBNuYIRdOMAsVPHpKCSjLAAjJB CqATJvXYHkQHBmBLYcHUJbHIAqUONyXEGuVIPdIVOjVHCiTNQcKKFuSIZyDHHiRB5LYO47cKRoi8Y5QI EeYB0fvdd/Dr5QSHtlsjSfaCLqSQ4JXhQoQF1mwl7G PpWtXT9vfp4RQCuXVyPgB7S4mOUuSJUwKFQEFgYtV25gYWlfEx24RGwaWUZxBgDoCNq7Wp4ZBlCuK0ml YOZtNpH4NQOcDkPdCKtwIS2Pb4JbtJOtBKf+Sg9GME0xc6LsTUmsZAZpMS8wcb2UEQyMTrGnR9OodhR0 EUImZVIyBb7JAZHfNLQzfEMiMTZkAAOSPeOuU3ZnkD 35TKPOIj6+VKepxfVaCpsDOnIvSCKsu5DkCZr7TE7RTKGdEVl3sBJcBUGiC2Enr4MtJh31SAZpIrueFt Mjy8GyQcYFtFPpnWHhFEMELYHdpAIbIy8oZmEfHDkaEHQ9NELjQF2jWFbrFO6TXTX6BZdvUYCcCJYvJ1 qFBpKyGZYkTJTlqVnqKJ8RXuPaW6XbptAkbAPhAPJl IFINCj4+JXhxlrIiRerBIpAqJEAkg4SfONq2AP0LXMVqOTawLO7XQPStcN6zWScqKW2LQhBnVnVwGBYB KxVaQ09yhSIbIIa6X2HcMfXhDGYqIrgdQOMtHCazOjDbGSAtWlCkOFqkHG5+ID4+COupBG1DBJqwprZt WCVnUe3FGHBaETCwAF6dYLPiUKKaF3L6bVdoJSGMRj ZxJ4karxkuWI7tJWKoQ359cEstraPpIYK3MFJhVs4KHPZhQSJ6WKWbdOGnUFvrRSUMNRheBT0SxTGgWN W6dO1bLCwdYHVwBEXhV6yADySfaOvbAU39lMhacaXxzZLxPKw+Kf5RFA2we7ErVJh3thQtGZobJXUjZH igZKFvDSZfDUXyRHM7JXY4FDWMFwJeGTZkOCKuFDjs HPQlMZCkua8NZIVkUKBaXXReMeBoJCIuCBStLAboATCuHAHzMcJwENRgLYRmMF2NChNyYMQcIMAaFWwj YILyBEPybo9IIRPqFXZsMwP7GvFeUFDnDIGdQJtrUJRcVJOcBdOaUXItSJBjHN7APkMoJMLzCLY3NaOg VVGdAKQuif4DFVIcKAXdGXelNdXmBMRzXRNdOHotCB ZsYPC6QEl1VICfZHEuHP4TTwMnESDzNASrGAAeAFCrOMXptg5AQYSfPICiKuH6IsRuWQXbNQNoLAikAC ZoLFI1FAWsSEUhNJPhTA2QLfTvOIGmEmNnOPBpYFPkQXEemi0MRONwOJBsZZW2WYCpMYDoWVHeHCwlHV GqAVBkPLszVAWjZUWlOM0IJwBdWUPpXmQ4ZVYaABVn ZFJwud9WMCHvLDFdBLB2YILnLTDsTNXtAMulWRRrRGEhMQnlVZFjECXgQW3WDmFuBVBpQzP1XytiHJDe XVOjcy6ZHLDwRETwDoX1GSVwDCKeJLNaYNbgRCGoTHTjLvB4HSVqFVGqCF8YRkAuRVwoGIGCKmk7JLgk X2t3MOQdBf0AU6Zln6CtBlLgHDEGDZelLN5potIoZP ZaSy4AW7qBTmyaMAtoGVO2GZC3CnJvHsFjSHi0Jmr2ZnRnRSXyNuS7Jv2fYUPnPNNbAcrjYmItPOIgJJ H3CGKaCLykHGM9WNGxYpfsQuYnTR1KKi4GUtH2KWP4dXDoBf4ZFdJ7BEVTEsIyZK2VVLa= ID Date Data Source [id number] 09/21/2019 04:27:14 PM [facility] Name Value Range Interpretation Code Description Data [facility] rce(s) Supporting Document(s) Progress Note [facility] KRLSKu6pPtCKPyZu99/BWUcsWTTnx5JcEExmMMn3ENprDZWsW1OgHHI3nY2iBZQ9JMsIOlJwKVshPeXl lbm [file] CiTRWtWQA7LJU3WhLpUW5VNw4DLyP5TEC7vAWzHd5SFka9UJfVSpOlKO3DYYz= ID Date Data Source [id number] 09/11/2019 03:55:30 PM EST [facility] Name Value Range Interpretation Code Description Data [facility] Supporting Document(s) Discharge Summary [facility] QVXAYu9cAtEQXmRu73/NHOdeIKYzf7ZnGZaaULj4GIqoQVHrW8ObECA4eB5cWLQ2RNsPNiFmKWsrPNTx lbm [file] ICAgICAgICAgICAgICAgICAgICAgICAgICAgICAgICAgICAgICAgICAgICAgICAgICAgICAgICAgICAg PXBoSGWqZBDtTWOlXFUeTO4TPXLqYBAuPPYfSLKvFJJdPYVeNUMmMDRhUVHmCNInCKZpSEJvYLUcCHCt ICAgICAgICAgICAgICAgICAgICAgICAgICAgICAgIC DkXLJzFJMaSHVhRQTlNPPfZWPnSEYzISDnSD9AGVSpGDMiDTCeCLAtYDKhVXCbBPCsUIZdJWJaBDVoLA AgICAgICAgICAgICAgICAgICAgICAgICAgICAgICAgICAgICAgICAgICAgICAgICAgICAgICAgICAgIC KyDYWbXMJkQD8PXTGxQQDrTTHcXRKhLTKqKODwUEYr ICAgICAgICAgICAgICAgICAgICAgICAgICAgICAgICAgICAgICAgICAgICAgICAgICAgICAgICAgICAg LXCbQNEvNTQwBPUcEVFqSLBmEZ8WPIQoIIUeJAHwFVOoYSPhQISaZRDiNVXyTHPuRSTkMRStCCJyOFRd ICAgICAgICAgICAgICAgICAgICAgICAgICAgICAgIC EoSZYcUAFxWLSxQNMpILAyABVyLVWjGXIpQUDvPQ9KHWZxACQuDBVzBDLyAFPpUVJdYAXzXNYkKVThFY AgICAgICAgICAgICAgICAgICAgICAgICAgICAgICAgICAgICAgICAgICAgICAgICAgICAgICAgICAgIC TtNWIiSUDwTCGdWI7OLUEpYLOkHVQgTNRhXPYdVGVn ICAgICAgICAgICAgICAgICAgICAgICAgICAgICAgICAgICAgICAgICAgICAgICAgICAgICAgICAgICAg MCGtQPKjXRHsXLGcFCHcWETzGEPkWL2WUBQmKGFvCAAkCXTvXCQeTINnWFUhBSYwKHGaUHQiROBmWWNr ICAgICAgICAgICAgICAgICAgICAgICAgICAgICAgIC CxPSLkXFKwWTWpPVNdCLWtJOWuPOMiZOMmHDEcAHEnNV0ZPPKsBMWaYNVgBERbTQYrKZXrNLRqPLPiKT AgICAgICAgICAgICAgICAgICAgICAgICAgICAgICAgICAgICAgICAgICAgICAgICAgICAgICAgICAgIC LcYOTuRINgDZWqSLRwJD7OFRTrPILuXBKbFAKdDSBu ICAgICAgICAgICAgICAgICAgICAgICAgICAgICAgICAgICAgICAgICAgICAgICAgICAgICAgICAgICAg SBUlQSCkGHAuJENrKLXyPROuYYMzPHNeGZ2UVK11jVEvi1C1VBZkEK4phlb/Uu8LUWogayStiPHuWB0K UqVyWB5fdq1INtUnAM2pbb5KWHpUSaBuW6B6zEWkGH ZlKOOISbTiY39iXDtiNy71INsmBFScLtJoKKv0Gy7HQgFtG2ynLEOyEmH9UHGeAnQ3QMQsLiA1NNVsCl UsLOWxXUGdLJPaRNVFXDD4LDDzYaTmHgLpSHVzVInzCCFZGX5JJfWaB6PbuE52NKwZCa2+DQplbmRvYm xTYlZ1XWUfa4FgIIo5TC0FZYTvPtxtq4ExTQadUNXD NBziOV9IGFW7POB1BGDsXt1OXXIwR903efXzXX6DXf0SBgAfSB2yiq4RRXzxOZMmDfpLUan9BByrYB8M mDReAFiCmECosYAdI9HuF3YupBGnjQOoiNPTLMlgzKKJAKs0oDy8MCNQSPPpvGEaQX6hHp5gGRF1ZWUy WvS6YVOKSP1FMZWeUFTcbFPdFQEyUDERTD6OYErxDX V9RXDzgvEasSHjDZtvDZ1DJKUkobTzYYXnYNVVPRy+Hm6TKB7xw6MzZDf1NONhMB3rjg6MWNwCOmUlO8 E5cEFeB6L9JYcgKq5UNOEyPYElWJUuHLNNKZmzCI1EAW8bwlK0QJ8EkKWdJEWtSUDehNXwAGs8K85gvX CvIMqrIN5UQYH+Savannah+Rg9AVIYuRYBaIJWaYgGuBPDU PlJxE0JzS5TGr0AbY4DpQQ96bXjuziIsRVgvSU5LAM4zXTEaNPDPUV9SsQUlhO4scpE7CgFrLPVPPrGe C96zlSWqLAZsAVK4SCWsJg2ZXSXuM9FfbhWfvHwoznThJNIhQXZRHB5PXTayjlMmiHAafMtvFQ10gInb NI4GPw9RRtKfAN1abn9NtPDcJa8IJCA3FO3TCMHpXD XuAEVaMQX9IMPoAaCrBBwwJYQuDUAgVFI6CDUaKFJuGR1BLjQoZCYpQZz8DMprLONeQKSkoq6BHZZsCY E5NSRvZNNgCEEcOEJnVTodAAQrORKcWVZ8LCUxSVKsRE9BAlLyQQCaDOZ3ScSlBTUcOWNikh9KLSQkOI GjKgZjZxJdSFZzBTCkXVhyDRHrTKX8RMWbKFVaAPIe YD6PQtGtFEBwYUDtOUIiQXKuVLVhgx6LEXAyOJLlQAd2UOAzQFTqINWaIAevTXXnKXK6HZreSDWaAIUo HN0TZnQvRHDmNAWkRwIxRVNtNZCqwd0DEOTcAEXzMcAjGdLmDYHuYCZkLRsmGSYlCTZ8ZcA4IIQdSUGh BL6QDgPrCFPzOHF4XfNdWAYjJMAmoq5UKFJgRTStLD F8HUPvJLTmNBReAKlqTUPlJGD1DPi6LSFxSMKvBP0NWuKjTOCpVhS8XFIyIVEyEXNref8OSEFeMEFkRd W6MwLsNCVbLTPmNJvrDZNtMFHkJyX4BFJaKSTcWC8NDyWjTVOaPiF0FYBoYDTyEPYlfq6SLCMzAAFsAO JrGVNeEFTfJUBcOJpmKEJtREE4AxKuFVYsMWDwCP5I MoWwZHWwMeD3VXMeNTRnSDAlyh1NATQlHIAmEWd2JjYcOJOuLSYfBOalKSGpLIM6ICU8MZHgFALqPY2B WrDeAYDcEiOxWXXvOPJuYDRaxj8PUJJsMYJzUcYuNvVhGUClKRRkBUofZLGlOSY7JqTiOYFbZALvBL7G NyIoHHSeFus6UTZhSHApCJJven0NVWJmSZXnGJf4PD XwOOJcZKLmGOyvLIRdWKY1NRu9QVIuYAGpNG1MWgZuQWNfTjrkRWZlAEYtCFOfki6XCZSyHOEnKDGyCG IbGZRmMWFvRExiEDMzZVW1MunrICFlLDTlZT1LBkPgOKWoRJU1ZhXxUZXpRNTaie5UFKVyLCZ0NWcnRm RjZEAqYYGjQEsiOGAgKJAfFUxcIFPnYAUrBH2AHfJy GZKrVRS3GOGsREYdEBTkdb8CNBTcFAF4AqI8VjFyBVYfHLFtYGfdWRBiUJO1AJc8QHRrXHVwUA4CQcCp VFTdELT1BGAlXHIkFIHtbj6NYUIlDWC7Clt6EeZnLZYvYLYzTMclJXGmVXP5BUIoQIQuYSDoVY9AKlNx NHHyZGvsXBNlDCAhYQZrdt6YAVOsXRB2Tpo6QLYbKX RhQWYmPTcsCUNoYCX3DkQaVEZgDCQtRO1OFlTxMHJcEEu9BwHyJLQrXSRfeq2CLIQxPSL8APL1UnTzHV VdUJZhERf5dhIryIYlVCc2NV8UI6FmbhAqOAbLJi4Wi491EVQ4HKEtJo0XX2fiGz4vCGYoDKKROz8GZK t5PMCvEPOpOEZtWJH5DHX1OtK0GbH0HqZsHqL5UyBm M2E+ZCvvAXW9CjA4SvHlUNXfRgd9Ypq7HvK7U1FoHFI2WkGvNY6fYQGQGv3+DQpzdGFydHhyZWYNCjQ5 MRJ0LClgXETQRr4X ID Date Data Source [id number] 09/11/2019 08:01:04 AM [facility] Name Value Range Interpretation Code Description Data [facility] rce(s) Supporting Document(s) Glucose [Mass/volume] in Capillary blood by Glucometer 125 mg/dL 70- 140 [facility] ID Date Data Source [id number] 09/11/2019 05:20:49 AM [facility] Name Value Range Interpretation Code Description Data [facility] rce(s) Supporting Document(s) Leukocytes [#/volume] in Blood by Automated count 6.2 10*3/uL 4-10 [facility] Erythrocytes [#/volume] in Blood by Automated count 3.30 10*6/uL 4.1- 5.3 L [facility] Hemoglobin [Mass/volume] in Blood 8.6 g/dL 11.5-15.5 [facility] Hematocrit [Volume Fraction] of Blood by Automated count 26.4 % 3 6-45 L [facility] Erythrocyte mean corpuscular volume [Entitic volume] by Auto mated count 80.0 fL 80-96 [facility] Erythrocyte mean corpuscular hemoglobin [Entitic mass] by Automated count 26.2 pg 27-33 L [facility] Erythrocyte mean corpuscular hemoglobin concentration [Mass/volume] by Automated count 32.7 g/dL 32.0-36.0 [facility] width [Ratio] by Automated count 17.0 % 11.5-14.5 [facility] Platelets [#/volume] in Blood by Automated count 345 10*3/uL 150-400 [facility] Differential cell count method - Blood [facility] Neutrophils/100 leukocytes in Blood by Automated count 62 % [facility] Lymphocytes/100 leukocytes in Blood by Automated count 16 % [facility] Monocytes/100 leukocytes in Blood by Automated count 13 % [facility] Eosinophils/100 leukocytes in Blood by Automated count 8 % [facility] Basophils/100 leukocytes in Blood by Automated count 1 % [facility] Neutrophils [#/volume] in Blood by Automated count 3.87 10*3/uL 1.8-7 .0 [facility] Lymphocytes [#/volume] in Blood by Automated count 1.00 10*3/uL 1.2-4 .0 L [facility] Monocytes [#/volume] in Blood by Automated count 0.82 10*3/uL 0-0.8 H [facility] Eosinophils [#/volume] in Blood by Automated count 0.47 10*3/uL 0-0.5 [facility] Basophils [#/volume] in Blood by Automated count 0.04 10*3/uL 0-0.2 [facility] Nucleated erythrocytes/100 leukocytes [Ratio] in Blood by Automated count 0 /100{WBCs} 0-0 [facility] ID Date Data Source [id number] 09/11/2019 05:34:15 AM [facility] Value Range Interpretation Code Description Data [facility] rce(s) Supporting Document(s) Bicarbonate [Moles/volume] in Serum 29 mmol/L 22-29 [facility] Chloride [Moles/volume] in Serum or Plasma 98 mmol/L 98-107 [facility] Creatinine [Mass/volume] in Serum or Plasma 0.59 mg/dL 0.50-0.90 [facility] Glucose [Mass/volume] in Serum or Plasma 116 mg/dL 70-140 [facility] Potassium [Moles/volume] in Serum or Plasma 4.5 mmol/L 3.4-5.1 [facility] Sodium [Moles/volume] in Serum or Plasma 135 mmol/L 136-145 L [facility] Urea nitrogen [Mass/volume] in Serum or Plasma 18 mg/dL 6-20 [facility] Anion gap 3 in Serum or Plasma 8 mmol/L 8-15 [facility] Osmolality of Serum or Plasma by calculation 283 mosm/kg 275-300 [facility] Creatinine/Urea nitrogen [Mass Ratio] in Serum or Plasma 30 [facility] Calcium [Mass/volume] in Serum or Plasma 8.5 mg/dL 8.6-10.0 L [facility] Glomerular filtration rate/1.73 sq M pre dicted among non-blacks [Volume Rate/Area] in Serum or Plasma by Creatinine-based formula (MDRD) >6 0 [facility] Glomerular filtration rate/1.73 sq M pre dicted among blacks [Volume Rate/Area] in Serum or Plasma by Creatinine-based formula (MDRD) >60 [facility] ID Date Data Source [id number] 09/11/2019 05:34:15 AM [facility] Value Range Interpretation Code Description Data [facility] rce(s) Supporting Document(s) Magnesium [Mass/volume] in Serum or Plasma 2.7 mg/dL 1.6-2.6 H [facility] ID Date Data Source [id number] 09/11/2019 05:34:15 AM [facility] Value Range Interpretation Code Description Data [facility] rce(s) Supporting Document(s) Phosphate [Mass/volume] in Serum or Plasma 4.4 mg/dL 2.5-4.5 [facility] ID Date Data Source [id number] 09/11/2019 12:00:54 AM [facility] Value Range Interpretation Code Description Data [facility] rce(s) Supporting Document(s) Glucose [Mass/volume] in Capillary blood by Glucometer 120 mg/dL 70- 140 [facility] ID Date Data Source [id number] 09/10/2019 04:07:42 PM [facility] Value Range Interpretation Code Description Data [facility] rce(s) Supporting Document(s) Glucose [Mass/volume] in Capillary blood by Glucometer 110 mg/dL 70- 140 [facility] ID Date Data Source [id number] 09/10/2019 08:13:19 AM [facility] Value Range Interpretation Code Description Data [facility] rce(s) Supporting Document(s) Glucose [Mass/volume] in Capillary blood by Glucometer 135 mg/dL 70- 140 [facility] ID Date Data Source [id number] 09/10/2019 05:14:03 AM [facility] Value Range Interpretation Code Description Data [facility] rce(s) Supporting Document(s) Leukocytes [#/volume] in Blood by Automated count 7.8 10*3/uL 4-10 [facility] Erythrocytes [#/volume] in Blood by Automated count 3.38 10*6/uL 4.1- 5.3 [facility] Hemoglobin [Mass/volume] in Blood 9.0 g/dL 11.5-15.5 [facility] Hematocrit [Volume Fraction] of Blood by Automated count 26.9 % 3 6-45 [facility] Erythrocyte mean corpuscular volume [Entitic volume] by Auto mated count 79.6 fL 80-96 [facility] Erythrocyte mean corpuscular hemoglobin [Entitic mass] by Automated count 26.6 pg 27-33 [facility] Erythrocyte mean corpuscular hemoglobin concentration [Mass/volume] by Automated count 33.4 g/dL 32.0-36.0 [facility] distribution width [Ratio] by Automated count 17.2 % 11.5-14.5 [facility] Platelets [#/volume] in Blood by Automated count 316 10*3/uL 150-400 [facility] Differential cell count method - Blood [facility] Neutrophils/100 leukocytes in Blood by Automated count 69 % [facility] Lymphocytes/100 leukocytes in Blood by Automated count 14 % [facility] Monocytes/100 leukocytes in Blood by Automated count 10 % [facility] Eosinophils/100 leukocytes in Blood by Automated count 6 % [facility] Basophils/100 leukocytes in Blood by Automated count 1 % [facility] Neutrophils [#/volume] in Blood by Automated count 5.38 10*3/uL 1.8-7 .0 [facility] Lymphocytes [#/volume] in Blood by Automated count 1.05 10*3/uL 1.2-4 .0 L [facility] Monocytes [#/volume] in Blood by Automated count 0.80 10*3/uL 0-0.8 [facility] Eosinophils [#/volume] in Blood by Automated count 0.49 10*3/uL 0-0.5 [facility] Basophils [#/volume] in Blood by Automated count 0.05 10*3/uL 0-0.2 [facility] Nucleated erythrocytes/100 leukocytes [Ratio] in Blood by Automated count 0 /100{WBCs} 0-0 [facility] ID Date Data Source [id number] 09/10/2019 05:27:29 AM [facility] Name Value Range Interpretation Code Description Data [employer] rce(s) Supporting Document(s) Bicarbonate [Moles/volume] in Serum 27 mmol/L 22-29 [facility] Chloride [Moles/volume] in Serum or Plasma 100 mmol/L 98-107 [facility] Creatinine [Mass/volume] in Serum or Plasma 0.58 mg/dL 0.50-0.90 [facility] Glucose [Mass/volume] in Serum or Plasma 112 mg/dL 70-140 [facility] Potassium [Moles/volume] in Serum or Plasma 5.1 mmol/L 3.4-5.1 [facility] Sodium [Moles/volume] in Serum or Plasma 136 mmol/L 136-145 [facility] Urea nitrogen [Mass/volume] in Serum or Plasma 23 mg/dL 6-20 H [facility] Anion gap 3 in Serum or Plasma 9 mmol/L 8-15 [facility] Osmolality of Serum or Plasma by calculation 286 mosm/kg 275-300 [facility] Creatinine/Urea nitrogen [Mass Ratio] in Serum or Plasma 39 [facility] Calcium [Mass/volume] in Serum or Plasma 9.5 mg/dL 8.6-10.0 [facility] Glomerular filtration rate/1.73 sq M pre dicted among non-blacks [Volume Rate/Area] in Serum or Plasma by Creatinine-based formula (MDRD) >6 0 [facility] Glomerular filtration rate/1.73 sq M pre dicted among blacks [Volume Rate/Area] in Serum or Plasma by Creatinine-based formula (MDRD) >60 [facility] ID Date Data Source [id number] 09/10/2019 05:27:29 AM [facility] Value Range Interpretation Code Description Data [employer] rce(s) Supporting Document(s) Magnesium [Mass/volume] in Serum or Plasma 2.3 mg/dL 1.6-2.6 [facility] ID Date Data Source [id number] 09/10/2019 05:27:29 AM [facility] Value Range Interpretation Code Description Data [facility] rce(s) Supporting Document(s) Phosphate [Mass/volume] in Serum or Plasma 4.1 mg/dL 2.5-4.5 [facility] ID Date Data Source [id number] 09/10/2019 12:14:04 AM [facility] Value Range Interpretation Code Description Data [facility] rce(s) Supporting Document(s) Glucose [Mass/volume] in Capillary blood by Glucometer 130 mg/dL 70- 140 [facility] ID Date Data Source [id number] 09/09/2019 04:15:32 PM [facility] Value Range Interpretation Code Description Data [employer] rce(s) Supporting Document(s) Glucose [Mass/volume] in Capillary blood by Glucometer 93 mg/dL 70- 140 [facility] ID Date Data Source [id number] 09/09/2019 08:13:43 AM [facility] Value Range Interpretation Code Description Data [employer] rce(s) Supporting Document(s) Glucose [Mass/volume] in Capillary blood by Glucometer 150 mg/dL 70- 140 H [facility] ID Date Data Source [id number] 09/09/2019 04:04:49 AM [facility] Value Range Interpretation Code Description Data [employer] rce(s) Supporting Document(s) Leukocytes [#/volume] in Blood by Automated count 7.2 10*3/uL 4-10 [facility] Erythrocytes [#/volume] in Blood by Automated count 3.28 10*6/uL 4.1- 5.3 L [facility] Hemoglobin [Mass/volume] in Blood 8.5 g/dL 11.5-15.5 [facility] Hematocrit [Volume Fraction] of Blood by Automated count 25.8 % 3 6-45 L [facility] Erythrocyte mean corpuscular volume [Entitic volume] by Auto mated count 78.9 fL 80-96 L [facility] Erythrocyte mean corpuscular hemoglobin [Entitic mass] by Automated count 25.9 pg 27-33 L [facility] Erythrocyte mean corpuscular hemoglobin concentration [Mass/volume] by Automated count 32.8 g/dL 32.0-[facility] width [Ratio] by Automated count 17.1 % 11.5-14.5 H [facility] Platelets [#/volume] in Blood by Automated count 272 10*3/uL 150-400 [facility] Differential cell count method - Blood [facility] Neutrophils/100 leukocytes in Blood by Automated count 69 % [facility] Lymphocytes/100 leukocytes in Blood by Automated count 13 % [facility] Monocytes/100 leukocytes in Blood by Automated count 11 % [facility] Eosinophils/100 leukocytes in Blood by Automated count 6 % [facility] Basophils/100 leukocytes in Blood by Automated count 1 % [facility] Neutrophils [#/volume] in Blood by Automated count 5.03 10*3/uL 1.8-7 .0 [facility] Lymphocytes [#/volume] in Blood by Automated count 0.90 10*3/uL 1.2-4 .0 [facility] Monocytes [#/volume] in Blood by Automated count 0.75 10*3/uL 0-0.8 [facility] Eosinophils [#/volume] in Blood by Automated count 0.44 10*3/uL 0-0.5 [facility] Basophils [#/volume] in Blood by Automated count 0.05 10*3/uL 0-0.2 [facility] Nucleated erythrocytes/100 leukocytes [Ratio] in Blood by Automated count 0 /100{WBCs} 0-0 [facility] ID Date Data Source [id number] 09/09/2019 04:18:42 AM [facility] Name Value Range Interpretation Code Description Data [employer] rce(s) Supporting Document(s) Bicarbonate [Moles/volume] in Serum 26 mmol/L 22-29 [facility] Chloride [Moles/volume] in Serum or Plasma 101 mmol/L 98-107 [facility] Creatinine [Mass/volume] in Serum or Plasma 0.71 mg/dL 0.50-0.90 [facility] Glucose [Mass/volume] in Serum or Plasma 138 mg/dL 70-140 [facility] Potassium [Moles/volume] in Serum or Plasma 5.1 mmol/L 3.4-5.1 [facility] Sodium [Moles/volume] in Serum or Plasma 136 mmol/L 136-145 [facility] Urea nitrogen [Mass/volume] in Serum or Plasma 22 mg/dL 6-20 [facility] Anion gap 3 in Serum or Plasma 8 mmol/L 8-15 [facility] Osmolality of Serum or Plasma by calculation 288 mosm/kg 275-300 [facility] Creatinine/Urea nitrogen [Mass Ratio] in Serum or Plasma 31 [facility] Calcium [Mass/volume] in Serum or Plasma 9.5 mg/dL 8.6-10.0 [facility] Glomerular filtration rate/1.73 sq M pre dicted among non-blacks [Volume Rate/Area] in Serum or Plasma by Creatinine-based formula (MDRD) >6 0 [facility] Glomerular filtration rate/1.73 sq M pre dicted among blacks [Volume Rate/Area] in Serum or Plasma by Creatinine-based formula (MDRD) >60 [facility] ID Date Data Source [id number] 09/09/2019 04:18:42 AM [facility] Name Value Range Interpretation Code Description Data Sumaya rce(s) Supporting Document(s) Magnesium [Mass/volume] in Serum or Plasma 2.4 mg/dL 1.6-2.6 [facility] ID Date Data Source [id number] 09/09/2019 04:18:42 AM [facility] Name Value Range Interpretation Code Description Data Sumaya rce(s) Supporting Document(s) Phosphate [Mass/volume] in Serum or Plasma 4.7 mg/dL 2.5-4.5 [facility] Procedure Social History Code Duration Value Status Description Data Source(s ) Smoking 10/19/2020 12:02:00 AM EST Denies Ever Smoked complete d Denies Ever Smoked [facility] Smoking 08/25/2020 12:00:00 AM EST Never Smoker completed Never S moker eCW1 ([facility]) Smoking 08/25/2020 12:00:00 AM EST Never Smoker completed Never S moker eCW1 ([facility]) Smoking 08/25/2020 12:00:00 AM EST Never Smoker completed Never S moker eCW1 ([facility]) Smoking 08/25/2020 12:00:00 AM EST Never Smoker completed Never S moker eCW1 ([facility]) Smoking 08/25/2020 12:00:00 AM EST Never Smoker completed Never S moker eCW1 ([facility]) Smoking 08/02/2020 12:00:00 AM EDT Never smoker completed Never s moker [facility] Alcohol intake 08/02/2020 12:00:00 AM EDT Never completed [facility] Smoking 04/21/2020 12:00:00 AM EDT Never Smoker completed Never S moker eCW1 ([facility]) Smoking 04/21/2020 12:00:00 AM EDT Never Smoker completed Never S moker eCW1 ([facility]) Smoking 04/21/2020 12:00:00 AM EDT Never Smoker completed Never S moker eCW1 ([facility]) Smoking 04/05/2020 12:00:00 AM EDT Never Smoker completed Never S moker eCW1 ([facility]) Smoking 04/05/2020 12:00:00 AM EDT Never Smoker completed Never S moker eCW1 ([facility]) Smoking 03/28/2020 12:00:00 AM EDT Never Smoker completed Never S moker eCW1 ([facility]) Smoking 03/28/2020 12:00:00 AM EDT Never Smoker completed Never S moker eCW1 ([facility]) Smoking 03/28/2020 12:00:00 AM EDT Never Smoker completed Never S moker eCW1 ([facility]) Smoking 03/28/2020 12:00:00 AM EDT Never Smoker completed Never S moker eCW1 ([facility]) Smoking 02/18/2020 12:00:00 AM EDT Never Smoker completed Never S moker eCW1 ([facility]) Smoking 02/18/2020 12:00:00 AM EDT Never Smoker completed Never S moker eCW1 ([facility]) Alcohol intake 02/10/2020 12:00:00 AM EDT Current non-d sherice of alcohol (finding) completed Current non-drinker of alcohol (finding) [facility] Tobacco use and exposure 02/10/2020 12:00:00 AM EDT Never used co mpleted Never used [facility] Smoking 02/10/2020 12:00:00 AM EDT Never smoker completed Never [facility] Smoking 02/10/2020 12:00:00 AM EDT Never smoker completed Never [facility] Alcohol intake 11/16/2019 12:00:00 AM EST Current non-d sherice of alcohol (finding) completed Current non-drinker of alcohol (finding) [facility] Smoking 11/16/2019 12:00:00 AM EST Never smoker completed Never [facility] Alcohol intake 10/27/2019 12:00:00 AM EST Current non-d sherice of alcohol (finding) completed Current non-drinker of alcohol (finding) [facility] Smoking 10/27/2019 12:00:00 AM EST Never smoker completed Never [facility] Alcohol intake 10/05/2019 12:00:00 AM EST Current non-d sherice of alcohol (finding) completed Current non-drinker of alcohol (finding) [facility] Smoking 10/05/2019 12:00:00 AM EST Never smoker completed Never [facility] Alcohol intake 10/05/2019 12:00:00 AM EST Current non-d sherice of alcohol (finding) completed Current non-drinker of alcohol (finding) [facility] Alcohol intake 09/28/2019 12:00:00 AM EST Current non-d sherice of alcohol (finding) completed Current non-drinker of alcohol (finding) [facility] Smoking 09/28/2019 12:00:00 AM EST Never smoker completed Never [facility] 09/27/2019 06:56:00 AM EST Never smoker completed Never [facility] Smoking 09/27/2019 06:56:00 AM EST Never smoker completed Never [facility] 09/27/2019 06:56:00 AM EST Never smoker completed Never [facility] Smoking 09/27/2019 06:56:00 AM EST Never smoker completed Never [facility] 09/27/2019 06:56:00 AM EST Never smoker completed Never s [facility] Smoking 09/27/2019 06:56:00 AM EST Never smoker completed Never s [facility] Alcohol intake 09/21/2019 12:00:00 AM EST Current non-d sherice of alcohol (finding) completed Current non-drinker of alcohol (finding) [facility] Smoking 09/21/2019 12:00:00 AM EST Never smoker completed Never s [facility] Vital Signs ID Date Data Source UNK Name Value Range Interpretation Code Description Data Source(s) Deprecated Oxygen saturation in Capillary blood by Oximetry 96 % Normal (applies to non-numeric results) 96 % [facility] Systolic blood pressure 97 mm[Hg] Normal (applies t o non-numeric results) 97 mm[Hg] [facility] Body temperature 37 homer Normal (applies to non-numeric results) 37 homer [facility] Respiratory rate 18 min Normal (applies to non-numeric results) 18 min [facility] Heart rate 102 min Normal (applies to non-numeric resul ts) 102 min [facility] Diastolic blood pressure 63 mm[Hg] Normal (applies to non-numeric results) 63 mm[Hg] [facility] Body height 169.380309 cm Normal (applies to non-nume zaina results) 169.700487 cm [facility] Body weight Measured 69.9 kg Normal (applies to non-num zeb results) 69.9 kg [facility] Body mass index (BMI) [Ratio] 24.19 kg/m2 No rmal (applies to non-numeric results) 24.19 kg/m2 [facility] Diastolic blood pressure 73 mm[Hg] 73 mm[Hg] [facility]) Systolic blood pressure 109 mm[Hg] 109 mm[Hg] M EDENT ([facility], [facility]) Body mass index (BMI) [Ratio] 24.1 kg/m2 24.1 k g/m2 [facility] ([facility]) Body height 67 [in_i] 67 [in_i] [facility] 5'7" Body weight 154.00 [lb_av] 154.00 [lb_av] MEDEN T ([facility], [facility]) Body temperature 97.9 [degF] 97.9 [degF] MEDENT ([facility], [facility]) Oxygen saturation in Arterial blood by Pulse oximetry 97 % 97 % MEDENT ([facility], [facility]) Respiratory rate 16 /min 16 /min MEDENT ( [facility], [facility]) Heart rate 105 /min 105 /min MEDENT ([facility], [facility]) Diastolic blood pressure 56 mm[Hg] 56 mm[Hg] eCW1 ([facility]) Systolic blood pressure 100 mm[Hg] 100 mm[Hg] e CW1 ([facility]) Body temperature 97.3 [degF] 97.3 [degF] eCW1 ( [facility]) Respiratory rate 18 /min 18 /min eCW1 ([facility]) Heart rate 109 /min 109 /min eCW1 ([facility]) Body mass index (BMI) [Ratio] 28.89 kg/m2 28.89 kg/m2 W1 ([facility]) Body height 66 [in_i] 66 [in_i] eCW1 ([facility]) Body weight 179 [lb_av] 179 [lb_av] eCW1 ([facility]) Respiratory rate 16 /min 16 /min [facility] Body temperature 36.28 Homer 36.28 Homer [facility] Heart rate 90 /min 90 /min [facility] Diastolic blood pressure 52 mm[Hg] 52 mm[Hg] [facility] Systolic blood pressure 102 mm[Hg] 102 mm[Hg] M [facility] Body mass index (BMI) [Ratio] 26.34 kg/m2 26.34 kg/m2 [facility] Body weight 76.114 kg 76.114 kg [facility] Oxygen saturation in Arterial blood by Pulse oximetry 100 % 100 % [facility] Body height 170 cm 170 cm [facility] Diastolic blood pressure 60 mm[Hg] 60 mm[Hg] eCW1 ([facility]) Systolic blood pressure 100 mm[Hg] 100 mm[Hg] e CW1 ([facility]) Body temperature 97 [degF] 97 [degF] eCW1 ([facility]) Respiratory rate 18 /min 18 /min eCW1 ([facility]) Heart rate 110 /min 110 /min eCW1 ([facility]) Body mass index (BMI) [Ratio] 27.44 kg/m2 27.44 kg/m2 eCW1 ([facility]) Body height 66 [in_i] 66 [in_i] eCW1 ([facility]) Body weight 170 [lb_av] 170 [lb_av] eCW1 ([facility]) Body weight 156.2 [lb_av] 156.2 [lb_av] ROBERTO ([facility] ) Systolic blood pressure 110 mm[Hg] 110 mm[Hg] A THENA ([facility] ) Body mass index (BMI) [Ratio] 26 kg/m2 26 kg/ m2 ROBERTO ([facility] ) Body height 65 [in_i] 65 [in_i] ROBERTO ([facility] ) Diastolic blood pressure 70 mm[Hg] 70 mm[Hg] ROBERTO ([facility] ) Diastolic blood pressure 60 mm[Hg] 60 mm[Hg] eCW1 ([facility]) Systolic blood pressure 100 mm[Hg] 100 mm[Hg] e CW1 ([facility]) Body temperature 97.6 [degF] 97.6 [degF] eCW1 ( [facility]) Respiratory rate 18 /min 18 /min eCW1 ([facility]) Heart rate 79 /min 79 /min eCW1 ([facility]) Body mass index (BMI) [Ratio] 25.01 kg/m2 25.01 kg/m2 eCW1 ([facility]) Body height 66 [in_i] 66 [in_i] eCW1 ([facility]) Body weight 155 [lb_av] 155 [lb_av] eCW1 ([facility]) Diastolic blood pressure 62 mm[Hg] 62 mm[Hg] eCW1 ([facility]) Systolic blood pressure 98 mm[Hg] 98 mm[Hg] e CW1 ([facility]) Body temperature 96.6 [degF] 96.6 [degF] eCW1 ( [facility]) Respiratory rate 18 /min 18 /min eCW1 ([facility]) Heart rate 101 /min 101 /min eCW1 ([facility]) Body mass index (BMI) [Ratio] 24.69 kg/m2 24.69 kg/m2 eCW1 ([facility]) Body height 66 [in_us] 66 [in_us] eCW1 ([facility]) Body weight Measured 153 [lb_av] 153 [lb_av] eC W1 ([facility]) Diastolic blood pressure 60 mm[Hg] 60 mm[Hg] eCW1 ([facility]) Systolic blood pressure 100 mm[Hg] 100 mm[Hg] e CW1 ([facility]) Body temperature 97 [degF] 97 [degF] eCW1 ([facility]) Respiratory rate 18 /min 18 /min eCW1 ([facility]) Heart rate 130 /min 130 /min eCW1 ([facility]) Body mass index (BMI) [Ratio] 24.53 kg/m2 24.53 kg/m2 eCW1 ([facility]) Body height 66 [in_us] 66 [in_us] eCW1 ([facility]) Body weight Measured 152 [lb_av] 152 [lb_av] eC W1 ([facility]) Diastolic blood pressure 62 mm[Hg] 62 mm[Hg] eCW1 ([facility]) Systolic blood pressure 94 mm[Hg] 94 mm[Hg] e CW1 ([facility]) Body temperature 96.9 [degF] 96.9 [degF] eCW1 ( [facility]) Respiratory rate 16 /min 16 /min eCW1 ([facility]) Heart rate 139 /min 139 /min eCW1 ([facility]) Body mass index (BMI) [Ratio] 24.53 kg/m2 24.53 kg/m2 eCW1 ([facility]) Body height 66 [in_us] 66 [in_us] eCW1 ([facility]) Body weight Measured 152 [lb_av] 152 [lb_av] eC W1 ([facility]) Diastolic blood pressure 58 mm[Hg] 58 mm[Hg] eCW1 ([facility]) Systolic blood pressure 100 mm[Hg] 100 mm[Hg] e CW1 ([facility]) Body temperature 96 [degF] 96 [degF] eCW1 ([facility]) Respiratory rate 18 /min 18 /min eCW1 ([facility]) Heart rate 115 /min 115 /min eCW1 ([facility]) Body mass index (BMI) [Ratio] 25.01 kg/m2 25.01 kg/m2 eCW1 ([facility]) Body height 66 [in_us] 66 [in_us] eCW1 ([facility]) Body weight Measured 155 [lb_av] 155 [lb_av] eC W1 ([facility]) Diastolic blood pressure 62 mm[Hg] 62 mm[Hg] eCW1 ([facility]) Systolic blood pressure 102 mm[Hg] 102 mm[Hg] e CW1 ([facility]) Body temperature 96.8 [degF] 96.8 [degF] eCW1 ( [facility]) Respiratory rate 18 /min 18 /min eCW1 ([facility]) Heart rate 85 /min 85 /min eCW1 ([facility]) Body mass index (BMI) [Ratio] 24.21 kg/m2 24.21 kg/m2 eCW1 ([facility]) Body height 66 [in_us] 66 [in_us] eCW1 ([facility]) Body weight Measured 150 [lb_av] 150 [lb_av] eC W1 ([facility]) Diastolic blood pressure 60 mm[Hg] 60 mm[Hg] eCW1 ([facility]) Systolic blood pressure 100 mm[Hg] 100 mm[Hg] e CW1 ([facility]) Body temperature 98.2 [degF] 98.2 [degF] eCW1 ( [facility]) Respiratory rate 18 /min 18 /min eCW1 ([facility]) Heart rate 120 /min 120 /min eCW1 ([facility]) Body mass index (BMI) [Ratio] 25.66 kg/m2 25.66 kg/m2 eCW1 ([facility]) Body height 66 [in_us] 66 [in_us] eCW1 ([facility]) Body weight Measured 159 [lb_av] 159 [lb_av] eC W1 ([facility]) ID Date Data Source [id number] 10/17/2020 05:21:16 PM [facility] Value Range Interpretation Code Description Data Source(s) TRANSFER FROM [facility] ID Date Data Source [id number] [facility] Interpretation Code Description Data Source(s) TRANSFER FROM [facility] ID Date Data Source [id number] 02/16/2020 09:21:18 AM [facility] Value Range Interpretation Code Description Data Source(s) WEIGHT RECORDED [address] [facility] Body height Measured 67 in in [facility] ID Date Data Source [id number] 11/17/2019 08:43:45 AM [facility] Value Range Interpretation Code Description Data Source(s) WEIGHT RECORDED 151.[address] [facility] Body height Measured 67 in 67 in [facility] ID Date Data Source [id number] 10/06/2019 04:22:21 PM [facility] Name Value Range Interpretation Code Description Data Source(s) WEIGHT RECORDED 146.[address] [facility] Body height Measured 67 in 67 in [facility] ID Date Data Source [id number] 10/06/2019 01:22:42 PM [facility] Name Value Range Interpretation Code Description Data Source(s) WEIGHT RECORDED 146.[address] [facility] Body height Measured 67 in 67 in [facility] ID Date Data Source [id number] 10/19/2019 09:52:26 AM [facility] Name Value Range Interpretation Code Description Data Source(s) WEIGHT RECORDED 154.[address] [facility] Body height Measured 67 in 67 in [facility] ID Date Data Source [id number] 09/22/2019 07:59:36 AM EST [facility] Name Value Range Interpretation Code Description Data Source(s) WEIGHT RECORDED [address] [facility] Body height Measured 67 in 67 in [facility] ID Date Data Source [id number] 09/28/2019 02:47:42 PM EST [facility] Name Value Range Interpretation Code Description Data Source(s) WEIGHT RECORDED 158.[address] [facility] Body height Measured 67 in in [facility] Patient Treatment Plan of Care Planned Activity Planned Date Details Description Data Source (s) Fluoxetine 4 MG/ML Oral Solution 08/25/2020 12:00:00 AM EST eCW1 ([facility]) Zolpidem tartrate 10 MG Oral Tablet 08/25/2020 12:00:00 AM EST eCW1 ([facility]) Fluoxetine 4 MG/ML Oral Solution 08/25/2020 12:00:00 AM EST eCW1 ([facility]) Zolpidem tartrate 10 MG Oral Tablet 08/25/2020 12:00:00 AM EST eCW1 ([facility]) Fluoxetine 4 MG/ML Oral Solution 08/25/2020 12:00:00 AM EST eCW1 ([facility]) Zolpidem tartrate 10 MG Oral Tablet 08/25/2020 12:00:00 AM EST eCW1 ([facility]) Fluoxetine 4 MG/ML Oral Solution 08/25/2020 12:00:00 AM EST eCW1 ([facility]) Zolpidem tartrate 10 MG Oral Tablet 08/25/2020 12:00:00 AM EST eCW1 ([facility]) Fluoxetine 4 MG/ML Oral Solution 08/25/2020 12:00:00 AM EST eCW1 ([facility]) Zolpidem tartrate 10 MG Oral Tablet 08/25/2020 12:00:00 AM EST eCW1 ([facility]) Levetiracetam 500 MG Oral Tablet 08/04/2020 12:00:00 AM EDT [facility] Zolpidem tartrate 5 MG Oral Tablet 04/21/2020 12:00:00 AM EDT eCW1 ([facility]) Zolpidem tartrate 5 MG Oral Tablet 04/21/2020 12:00:00 AM EDT eCW1 ([facility]) Zolpidem tartrate 5 MG Oral Tablet 04/21/2020 12:00:00 AM EDT eCW1 ([facility]) Amylases 86208 UNT / Endopeptidases 9500 UNT / Lipase 3000 UNT Delayed Release Oral Capsule 04/07/2020 12:00:00 AM EDT [facility] Zolpidem tartrate 10 MG Oral Tablet 03/28/2020 12:00:00 AM EDT eCW1 ([facility]) Zolpidem tartrate 10 MG Oral Tablet 03/28/2020 12:00:00 AM EDT eCW1 ([facility]) Zolpidem tartrate 10 MG Oral Tablet 03/28/2020 12:00:00 AM EDT eCW1 ([facility]) Zolpidem tartrate 10 MG Oral Tablet 03/28/2020 12:00:00 AM EDT eCW1 ([facility]) Misc. Devices (DURABLE MEDICAL EQUIPMENT SEE SIG) XX M ISC 03/28/2020 12:00:[address] [facility] 1 ML Enoxaparin sodium 100 MG/ML Prefilled Syringe [Lo venox] 03/24/2020 12:00:00 AM EDT eCW1 ([facility]) 1 ML Enoxaparin sodium 100 MG/ML Prefilled Syringe [Lo venox] 03/24/2020 12:00:00 AM EDT eCW1 ([facility]) 1 ML Enoxaparin sodium 100 MG/ML Prefilled Syringe [Lo venox] 03/24/2020 12:00:00 AM EDT eCW1 ([facility]) 1 ML Enoxaparin sodium 100 MG/ML Prefilled Syringe [Lo venox] 03/24/2020 12:00:00 AM EDT eCW1 ([facility]) 1 ML Enoxaparin sodium 100 MG/ML Prefilled Syringe [Lo venox] 03/24/2020 12:00:00 AM EDT eCW1 ([facility]) Amylases 12970 UNT / Endopeptidases 9500 UNT / Lipase 3000 UNT Delayed Release Oral Capsule [Creon] 03/24/2020 12:00:00 AM EDT eCW1 ([facility]) Amylases 67610 UNT / Endopeptidases 9500 UNT / Lipase 3000 UNT Delayed Release Oral Capsule [Creon] 03/24/2020 12:00:00 AM EDT eCW1 ([facility]) Amylases 00396 UNT / Endopeptidases 9500 UNT / Lipase 3000 UNT Delayed Release Oral Capsule [Creon] 03/24/2020 12:00:00 AM EDT eCW1 ([facility]) Amylases 74306 UNT / Endopeptidases 9500 UNT / Lipase 3000 UNT Delayed Release Oral Capsule [Creon] 03/24/2020 12:00:00 AM EDT eCW1 ([facility]) Relizorb Device 03/22/2020 12:00:00 AM [facility]. Devices (DURABLE MEDICAL EQUIPMENT SEE SIG) XX M [facility] 03/15/2020 12:00:00 AM [facility] (DURABLE MEDICAL EQUIPMENT SEE SIG) XX M [facility] 03/15/2020 12:00:00 AM [facility] (DURABLE MEDICAL EQUIPMENT SEE SIG) XX M [facility] 03/02/2020 12:00:00 AM [facility] Devices (DURABLE MEDICAL EQUIPMENT SEE SIG) XX M [facility] 02/17/2020 12:00:00 AM [facility] Devices (DURABLE MEDICAL EQUIPMENT SEE SIG) XX M [facility] 02/10/2020 12:00:00 AM [facility] Zolpidem tartrate 5 MG Oral Tablet 02/04/2020 12:00:00 AM EDT eC ([facility]) Zolpidem tartrate 5 MG Oral Tablet 02/04/2020 12:00:00 AM EDT eCW1 ([facility]) Methadone Hydrochloride 5 MG Oral Tablet 01/28/2020 12:00:00 AM [facility] 0.8 ML Enoxaparin sodium 100 MG/ML Prefilled Syringe 020 12:00:00 AM [facility] 0.8 ML Enoxaparin sodium 100 MG/ML Prefilled Syringe [ Lovenox] 01/07/2020 12:00:00 AM EDT eCW1 ([facility]) Sodium Chloride 0.9 % Intravenous Solution 01/05/2020 12:00:00 AM E [facility] Invanz 1 GM 01/05/2020 12:00:00 AM EDT e CW1 ([facility]) Nystatin [id number] UNT/ML Topical Cream 01/04/2020 12:00:00 AM EDT eCW1 ([facility]) Nystatin [id number] UNT/ML Topical Cream 01/04/2020 12:00:00 AM EDT eCW1 ([facility]) Nystatin [id number] UNT/ML Topical Cream 01/04/2020 12:00:00 AM [facility] Meropenem 1 GM 01/04/2020 12:00:00 AM EDT eCW1 ([facility]) Nystatin 201521 UNT/ML Topical Cream 01/04/2020 12:00:00 AM EDT eCW1 ([facility]) Nystatin 542322 UNT/ML Topical Cream 01/04/2020 12:00:00 AM EDT eCW1 ([facility]) Zolpidem tartrate 6.25 MG Extended Release Oral Tablet 11/24/2019 12:00:00 AM EST eCW1 ([facility]) Zolpidem tartrate 6.25 MG Extended Release Oral Tablet 11/24/2019 12:00:00 AM EST eCW1 ([facility]) Zolpidem tartrate 6.25 MG Extended Release Oral Tablet 11/24/2019 12:00:00 AM EST eCW1 ([facility]) Zolpidem tartrate 6.25 MG Extended Release Oral Tablet 11/24/2019 12:00:00 AM EST eCW1 ([facility]) Zolpidem tartrate 6.25 MG Extended Release Oral Tablet 11/24/2019 12:00:00 AM EST eCW1 ([facility]) Glucagon 3 MG/DOSE 11/24/2019 12:00:00 AM EST eCW1 ([facility]) diphenhydrAMINE HCl 50 MG/ML Injection Solution (BENAD RYL) 11/13/2019 12:00:00 AM [facility] ospital Misc. Devices (DURABLE MEDICAL EQUIPMENT SEE SIG) XX M ISC 11/10/2019 12:00:00 AM [facility] 1 ML heparin sodium, porcine 100 UNT/ML Injection 11/02/2019 12: 39:15 PM [facility] sodium chloride (preservative free) 0.9 % flush 10 mL 11/02/2019 08:45:14 AM [facility]spital 1 ML heparin sodium, porcine 10 UNT/ML Injection 11/02/2019 08:45:1 4 AM [facility] Dicyclomine Hydrochloride 10 MG Oral Capsule 11/02/2019 12:00:00 AM [facility] pantoprazole 4 MG/ML Injectable Solution 11/02/2019 12:00:00 AM [facility] Ondansetron 2 MG/ML Injectable Solution 11/02/2019 12:00:00 AM [facility] alpha-Tocopherol Acetate 1 UNT/ML / Asco rbic Acid 20 MG/ML / Biotin 0.006 MG/ML / Cholecalciferol 20 UNT/ML / dexpanthenol 1.5 MG/ML / Folic Acid 0.06 MG/ML / Niacinamide 4 MG/ML / Pyridoxine Hydrochloride 0.6 MG/ML / retinyl palmitate 330 UNT/ML / Ribofl 11/02/2019 12:00:00 AM [facility] sodium chloride 0.9 % SOLN 50 mL with ertapenem 1 g SO LR 1,000 mg 11/02/2019 12:00:00 AM [facility]spital Loperamide Hydrochloride 2 MG Oral Capsule 11/02/2019 12:00:00 AM E [facility] pantoprazole 40 MG Delayed Release Oral Tablet 11/02/2019 12:00:00 AM [facility] Loperamide Hydrochloride 2 MG Oral Capsule 10/27/2019 08:41:30 PM E [facility] Hydroxyzine Hydrochloride 50 MG Oral Tablet 10/27/2019 08:41:24 PM [facility] albuterol (PROVENTIL HFA;VENTOLIN HFA) inhaler 2 puff 10/27/2019 08:40:44 PM [facility] Doxycycline Monohydrate 5 MG/ML Oral Suspension 10/16/2019 12:00:00 AM [facility] eCW1 ([facility]) Calcium Chloride 0.0014 MEQ/ML / Potassi um Chloride 0.004 MEQ/ML / Sodium Chloride 0.103 MEQ/ML / Sodium Lactate 0.028 MEQ/ML Injectable Solution 10/05/2019 04:15:00 PM [facility] 1 ML heparin sodium, porcine 10 UNT/ML Injection 10/05/2019 04:11:5 1 PM [facility] Calcium Chloride 0.0014 MEQ/ML / Potassi um Chloride 0.004 MEQ/ML / Sodium Chloride 0.103 MEQ/ML / Sodium Lactate 0.028 MEQ/ML Injectable Solution 10/05/2019 02:45:00 PM [facility] Promethazine Hydrochloride 25 MG/ML Injectable Solutio n 10/05/2019 02:30:00 PM [facility] ospital pantoprazole 4 MG/ML Injectable Solution 10/05/2019 02:30:00 PM [facility] ondansetron (ZOFRAN) injection 4 mg 10/05/2019 02:30:00 PM [facility] lactated ringers bolus 2,000 mL 10/05/2019 02:30:00 PM [facility] Amylases 00929 UNT / Endopeptidases 9500 UNT / Lipase 3000 UNT Delayed Release Oral Capsule 10/05/2019 12:00:00 AM [facility] Amylases 70543 UNT / Endopeptidases 9500 UNT / Lipase 3000 UNT Delayed Release Oral Capsule 10/05/2019 12:00:00 AM [facility] Atropine Sulfate 0.025 MG / Diphenoxylate Hydrochlorid e 2.5 MG Oral Tablet 10/05/2019 12:00:00 AM [facility] Ondansetron 4 MG Disintegrating Oral Tablet 10/02/2019 12:00:00 AM [facility] Loperamide Hydrochloride 2 MG Oral Capsule 10/01/2019 12:00:00 AM [facility] pantoprazole 40 MG Delayed Release Oral Tablet 10/01/2019 12:00:00 AM [facility] Misoprostol 0.2 MG Oral Tablet 10/01/2019 12:00:00 AM [facility] Oxycodone Hydrochloride 5 MG Oral Tablet 09/30/2019 06:48:27 PM [facility] tramadol hydrochloride 50 MG Oral Tablet 09/29/2019 09:43:51 AM [facility] trimethobenzamide (TIGAN) injection 200 mg 09/28/2019 09:54:05 AM [facility] Promethazine Hydrochloride 25 MG/ML Injectable Solutio n 09/28/2019 09:53:48 AM [facility] albuterol (PROVENTIL HFA;VENTOLIN HFA) inhaler 2 puff 09/27/2019 06:30:14 PM [facility] Misc. Devices (DURABLE MEDICAL EQUIPMENT SEE SIG) XX M ISC 09/21/2019 12:00:00 AM [facility] pantoprazole 40 MG Delayed Release Oral Tablet 09/21/2019 12:00:00 AM [facility] Oxycodone Hydrochloride 5 MG Oral Tablet 09/14/2019 12:00:00 AM EST eCW1 ([facility]) Oxycodone Hydrochloride 10 MG Oral Tablet 09/14/2019 12:00:00 AM ES T eCW1 ([facility]) POLYETHYLENE GLYCOL 3350 142 MG/ML Oral Solution 09/12/2019 12:00:0 0 AM [facility] Bariatric Fusion Oral Tablet Chewable 09/11/2019 12:00:00 AM [facility] gabapentin 100 MG Oral Capsule 09/11/2019 12:00:00 AM [facility] sennosides, LONGTERM 8.6 MG Oral Tablet 09/11/2019 12:00:00 AM [facility] Docusate Sodium 100 MG Oral Capsule 09/11/2019 12:00:00 AM [facility] Oxycodone Hydrochloride 5 MG Oral Tablet 09/11/2019 12:00:00 AM [facility] Hydroxyzine Hydrochloride 50 MG Oral Tablet 09/08/2019 02:29:40 PM [facility] albuterol (PROVENTIL HFA;VENTOLIN HFA) inhaler 2 puff 09/08/2019 02:29:13 PM [facility] oxyCODONE (ROXICODONE) immediate release tablet 5 mg 019 07:15:51 AM [facility] Bisacodyl 10 MG Rectal Suppository 09/05/2019 11:43:27 AM [facility] POLYETHYLENE GLYCOL 3350 142 MG/ML Oral Solution 09/04/2019 09:00:0 0 AM [facility] Ondansetron 8 MG Disintegrating Oral Tablet 07/03/2019 12:00:00 AM [facility] Zolpidem tartrate 6.25 MG Extended Release Oral Tablet 07/02/2019 12:00:00 AM [facility] Promethazine Hydrochloride 25 MG Rectal Suppository [P kuldeep] 07/02/2019 12:00:00 AM [facility] sodium chloride, preservative free, 0.9 % injection 05/15/20 12:00:00 AM [facility] Sodium Chloride Flush (NORMAL SALINE FLUSH) 0.9 % SOLN 05/15/2019 12:00:00 AM [facility] 1 ML heparin sodium, porcine 100 UNT/ML Injection 05/15/2019 12: 00:00 AM [facility] sodium chloride 0.9 % solution 04/30/2019 12:00:00 AM [facility] Glucagon 1 MG Injection 11/14/2018 12:00:00 AM [facility] pantoprazole 40 MG Delayed Release Oral Tablet 10/10/2018 12:00:00 AM [facility] Ondansetron 2 MG/ML Injectable Solution 04/16/2018 12:00:00 AM [facility] Zolpidem tartrate 6.25 MG Extended Release Oral Tablet [facility]ERTO ([facility]) Zolpidem tartrate 12.5 MG Extended Release Oral Tablet [facility] ([facility]) Zolpidem tartrate 5 MG Oral Tablet [facility] ([facility]) 1 ML heparin sodium, porcine 10 UNT/ML Injection [facility] HEPARIN LOCK FLUSH IV [facility] 0.6 ML Enoxaparin sodium 100 MG/ML Prefilled Syringe [facility] TPN ADULT (ION-BASED) [facility] sodium chloride 0.9 % intravenous solution [facility]ERT[facility] ([facility]) sodium chloride 0.9 % intravenous piggyback [facility]ERT[facility] ([facility]) Promethazine Hydrochloride 25 MG Rectal Suppository [Promethegan] [facility]ERT[facility] ([facility]) Prednisone 20 MG Oral Tablet [facility] ([facility]) pantoprazole 40 MG Delayed Release Oral Tablet [facility] ([facility]) Oxycodone Hydrochloride 1 MG/ML Oral Solution [facility] ([facility]) Oxycodone Hydrochloride 5 MG Oral Tablet [facility] ([facility]) Oxycodone Hydrochloride 20 MG/ML Oral Solution [facility] ([facility]) Ondansetron 8 MG Disintegrating Oral Tablet [facility] ([facility]) Nystatin 367042 UNT/ML Topical Cream [facility] ([facility]) Morphine Sulfate 15 MG Oral Tablet [facility] ([facility]) Misoprostol 0.2 MG Oral Tablet [facility] ([facility]) Metronidazole 5 MG/ML Injectable Solution [facility] ([facility]) Metoclopramide 10 MG Oral Tablet [facility] ([facility]) linezolid 600 MG Oral Tablet [facility] ([facility]) 3 ML heparin sodium, porcine 100 UNT/ML Prefilled Syringe [facility] ([facility]) gabapentin 100 MG Oral Capsule [facility] ([facility]) Fluoxetine 4 MG/ML Oral Solution [facility] ([facility]) ertapenem 1 gram solution for injection [facility] ([facility]) 0.6 ML Enoxaparin sodium 100 MG/ML Prefilled Syringe [facility]ERT[facility] ([facility]) Doxycycline Monohydrate 5 MG/ML Oral Suspension ROEBRTO ([facility]) Ceftriaxone 2000 MG Injection [facility] ([facility]) Ceftriaxone 100 MG/ML Injectable Solution [facility] ([facility]) benzonatate 100 MG Oral Capsule [facility] ([facility]) Amoxicillin 500 MG Oral Capsule [facility] ([facility])
--- OUTSIDE RECORDS SUMMARY | 2020-11-07 19:23 | CCD ---
Author Author [facility] Organization [facility] Address Unknown Phone Unavailable Care Team Providers Care Circle Edger Name Role Phone Renuka, Aden Kim MD [...] Aden Kim MD Unavailable Unavailable Renuka, Aden Kmi MD Unavailable Unavailable Renuka, Aden Kim MD [...] Unavailable Renuka, A Julio LAKHANI Unavailable Unavailable Rneuka, A Julio LAKHANI Unavailable Unavailable Renuka, A [...] Julio LAKHANI Unavailable Unavailable Renuka, A Julio LAKHAIN Unavailable Unavailable Renuka, A Julio LAKHANI Unavailable [...] Unavailable Thong Castañeda MD Unavailable Unavailable Thong Catsañeda MD Unavailable Unavailable Thong Castañeda MD Unavailable [...] Mich LAKHANI Unavailable Unavailable Brian, K Mich MD [...] CrowSamuel MD Unavailable Unavailable De Crow, Samuel Darian MD Unavailable Unavailable Samuel Pham MD Unavailable [...] Samuel Pham MD Unavailable Unavailable Bradshaw, Angelica TRAVELING CLERK Unavailable Unavailable Bradshaw, Angelica TRAVELING CLERK Unavailable Unavailable Bradshaw, Angelica TRAVELING CLERK Unavailable Unavailable Bradshaw, Angelica TRAVELING CLERK Unavailable Unavailable Bradshaw, Angelica TRAVELING CLERK Unavailable Unavailable Bradshaw, Angelica TRAVELING CLERK Unavailable Unavailable Bradshaw, Angelica TRAVELING CLERK Unavailable Unavailable Bradshaw, Angelica TRAVELING CLERK Unavailable Unavailable Bradshaw, Angelica TRAVELING CLERK Unavailable Unavailable Bradshaw, Angelica TRAVELING CLERK Unavailable Unavailable Bradshaw, Angelica TRAVELING CLERK Unavailable Unavailable Yina NORIEGA MD Unavailable Unavailable [...] Unavailable ZAKARIYYA, SCOTT LAKHANI Unavailable Unavailable ZAKARIYYA, SOCTT LAKHANI Unavailable Unavailable ZAKARIYYA, SCOTT LAKHANI Unavailable [...] LAKHANI, SONYA Unavailable Unavailable [facility] [place] Unavailable Unavailable Kiki HALL MD Unavailable Unavailable [...] Unavailable JOSE GILLIS MD Unavailable Unavailable JOSE GLILIS MD Unavailable Unavailable JOSE GILLIS MD Unavailable [...] RAY, Yina MARIE MD Unavailable Unavailable RAY, Ynia MARIE MD Unavailable Unavailable RAY, Yina MARIE [...] Unavailable Unavailable Yina Escamilla MD Unavailable Unavailable iYna Escamilla MD Unavailable Unavailable Yina Escamilla MD [...] Unavailable Yina Escamilla MD Unavailable Unavailable Yina Escamilal MD Unavailable Unavailable Yina Escamilla MD Unavailable [...] Unavailable Ebenezer, J Tawanda PA-C Unavailable Unavailable Reese Wyatt [...] Unavailable Unavailable FLYNN-GINGER, ARLETTE DO Unavailable Unavailable FLYNN-GNIGER, ARLETTE DO Unavailable Unavailable FLYNN-GINGER, ARLETTE DO [...] Unavailable Unavailable FLYNN-GINGER, ARLETTE DO Unavailable Unavailable FLYNN-GIGNER, ARLETTE DO Unavailable Unavailable FLYNN-GINGER, ARLETTE DO [...] Unavailable Yina CHAIDEZ MD Unavailable Unavailable Yina CAHIDEZ MD Unavailable Unavailable Yina CHAIDEZ MD Unavailable [...] Alessandro SANDOVAL Unavailable Unavailable De Crow, Samuel Campblel MD Unavailable Unavailable De Crow, Samuel Campbell [...] Samuel Campbell MD Unavailable Unavailable De Crow, Sameul Campbell MD Unavailable Unavailable De Crow, Samuel [...] Unavailable Samuel Pham MD Unavailable Unavailable De Samule Maria MD Unavailable Unavailable De Samuel Maria MD Unavailable Unavailable GILMANTONMelissa MD Unavailable Unavailable GARZA, L MOISES MD [...] Unavailable GARZA, L MOISES MD Unavailable Unavailable GILMANTON, L MOISES MD Unavailable Unavailable GILMANTON, L MOISES MD Unavailable Unavailable GILMANTON, L MOISES MD Unavailable Unavailable GILMANTON, L MOISES MD Unavailable Unavailable GILMANTON, L MOISES MD Unavailable Unavailable GILMANTON, L MOISES MD Unavailable Unavailable GILMANTON, L MOISES MD Unavailable Unavailable GILMANTON, L MOISES MD Unavailable Unavailable GILMANTON, L MOISES MD Unavailable Unavailable GILMANTON, L MOISES MD Unavailable Unavailable GILMANTON, L MOISES MD Unavailable Unavailable GILMANTON, L MOISES MD Unavailable Unavailable GILMANTON, L MOISES MD Unavailable Unavailable GILMANTON, L MOISES MD Unavailable Unavailable GILMANTON, L MOISES MD Unavailable Unavailable GILMANTON, L MOISES MD Unavailable Unavailable GILMANTON, L MOISES MD Unavailable Unavailable GILMANTON, L MOISES MD Unavailable Unavailable GILMANTON, L MOISES MD Unavailable Unavailable GILMANTON, L MOISES MD Unavailable Unavailable GILMANTON, L MOISES MD Unavailable Unavailable GILMANTON, L MOISES MD Unavailable Unavailable GILMANTON, L MOISES MD Unavailable Unavailable GILMANTON, L MOISES MD Unavailable Unavailable GILMANTON, L MOISES MD Unavailable Unavailable GILMANTON, L MOISES MD Unavailable Unavailable GILMANTON, L MOISES MD Unavailable Unavailable GILMANTON, L MOISES MD Unavailable Unavailable GILMANTON, L MOISES MD Unavailable Unavailable GILMANTON, L MOISES MD Unavailable Unavailable GARZA, L MOISES MD Unavailable Unavailable GARZA, L MOISES MD Unavailable Unavailable GARZA, L MOISES MD Unavailable Unavailable GARZA, L MOISES MD Unavailable Unavailable GILMANTON, L MOISES MD Unavailable Unavailable GILMANTON, L MOISES MD Unavailable Unavailable GILMANTON, L MOISES MD Unavailable Unavailable GILMANTON, L MOISES MD Unavailable Unavailable GILMANTON, L MOISES MD Unavailable Unavailable GARZA, L [...] R ISIDRO MD Unavailable Unavailable LORENA, R ISIRDO MD Unavailable Unavailable LORENA, R ISIDRO MD [...] E Cait MD Unavailable Unavailable Skipton, E Ciat MD Unavailable Unavailable Skipton, E Cait MD [...] HANH, A JOHNATHON MD Unavailable Unavailable HANH, Adne DIEGO MD Unavailable Unavailable HANH, Aden DIEGO [...] MANOCHA, LAUREN LAKHANI Unavailable Unavailable Prashant CARNES [id number] Unavailable Unavailable SYSTEM IN, NOT IN PROVIDER Unavailable Unavailable MICHELLE, F CHERI DO Unavailable Unavailable MICHELLE, F CHERI DO Unavailable Unavailable MICHELLE, F CHEIR DO Unavailable Unavailable MICHELLE, F CHERI DO [...] is protected by Article 27-F of the [facility] Public Health law. If you continue you may have access to information: Regarding HIV / AIDS; Provided by facilities licensed or operated by the [facility] Office of Mental Health; or Provided by the [facility] Office for People With Developmental Disabilities. If such information is present, then the following [facility] mandated warning applies: This information has been [...] law may result in a fine or group home sentence or both. A general authorization for the release of medical or other information is NOT sufficient authorization for further disc losure. Allergies and Adverse Reactions Type Description Substance Reaction Status Data Source(s ) Drug allergy FENTANYL FENTANYL [facility] CLASS SULFA (sulfonamide) SULFA (sulfonamide) HIVES; DYSPNEA [facility] Drug allergy trazodone trazodone Swallowing problem [...] CHLORHEXIDINE TOWELETTE CHLORHEXIDINE TOWELETTE Itching Lo w [facility] SYSTEMIC NO ALLERGIES ON FILE NO ALLERGIES ON FILE [facility] Drug Class NSAIDS (NON-STEROIDAL ANTI-INFLAMMATORY DRUG) NSAIDS (NON-STEROIDAL ANTI-INFLAMMATORY DRUG) GI Bleeding [facility] DRUG INGREDI TRAZODONE Trazodone Sob [facility] Drug Class SULFA (SULFONAMIDE ANTIBIOTICS) SULFA (SULFONAMI DE ANTIBIOTICS) Anaphylaxis High [facility] Drug allergy Levaquin Drug allergy Anaphylaxis Active eCW1 ([facility]) NSAIDS NSAIDS NSAIDS GI Bleed Active eCW1 ([facility]) TOMATOES TOMATOES TOMATOES Anaphylaxis Active eCW1 ([facility]) NSAIDS NSAIDS NSAIDS GI Bleed Active eCW1 ([facility]) TOMATOES TOMATOES TOMATOES Anaphylaxis Active eCW1 ([facility]) NSAIDS NSAIDS NSAIDS GI Bleed Active eCW1 ([facility]) TOMATOES TOMATOES TOMATOES Anaphylaxis Active eCW1 ([facility]) NSAIDS NSAIDS NSAIDS GI Bleed Active eCW1 ([facility]) TOMATOES TOMATOES TOMATOES Anaphylaxis Active eCW1 ([facility]) NSAIDS NSAIDS NSAIDS GI Bleed Active eCW1 ([facility]) TOMATOES TOMATOES TOMATOES Anaphylaxis Active eCW1 ([facility]) Levaquin Levaquin Levofloxacin 750 MG Oral Tablet [Levaquin ] Anaphylaxis Active eCW1 ([facility]) NSAIDS NSAIDS NSAIDS GI Bleed Active eCW1 ([facility]) TOMATOES TOMATOES TOMATOES Anaphylaxis Active eCW1 ([facility]) Food allergy tomato tomato Anaphylaxis [facility] Drug allergy levofloxacin Levofloxacin Anaphylaxis [facility] Drug allergy trazodone trazodone Dyspnea [facility] Drug allergy Sulfa (Sulfonamide Antibiotics) Sulfa (Sulfonami de Antibiotics) Anaphylaxis [facility] Drug allergy NSAIDS (Non-Steroidal Anti-Inflamma NSAI DS (Non-Steroidal Anti-Inflamma Abnormal Coagulation [facility] Family History Family Member Name Family Member Gender Family Member Status Date o f Status Description Data Source(s) Unknown Unknown Problem MEDENT ([facility]) father,mgf,mgm Unknown Male Problem MEDENT ([facility]) Unknown Male Problem MEDENT ([facility]) Unknown Male Problem MEDENT ([facility]) Encounters Encounter Providers Location Date Indications Data Source(s ) Outpatient Attender: MOISES GARZA MDReferrer: ISIDRO GIPSON MD 11/29/2020 12:00:00 AM EST [facility] Unknown [address] [facility], [facility] [address] 10/28/2020 12:00:00 AM EST eCW1 ([facility]) Unknown [address] [facility] [address] 10/27/2020 12:00:00 AM EST eCW1 ([facility]) Outpatient Attender: JAMES BUCKNER PA-C [facility] [place] 10/19/2020 01:31:00 AM EST [facility] ([facility] Inpatient Attender: ER PHYSICIANAttend er: Adrian Pham MDAttender: SONYA DURANT MDAttender: JOSE GILLIS MDAdmitter: JOSE GILLIS MD 10/18/2020 04:51:04 AM EST Lab [facility] Outpatient Attender: Adrian Pham MD [facility] [place] 10/18/2020 01:37:00 AM EST [facility] ([facility]) Inpatient Attender: Adrian Pham MDAttender: SONYA WITT 10/17/2020 10:07:00 PM EST [facility] ( in Healthcare facility) Attender: Edward Pham MDAdmitter: SCOTT BATISTA MDConsultant: Cait Wyatt MD 10/17/2020 10:07:0 0 PM EST [facility] Inpatient Attender: Adrian Pham MDAttender: SONYA DURANTAttender: SCOTT BATISTA MDAttender: ER PHYSICIANAdmitter: Adrian Pham MD 10/17/2020 07:14:00 PM EST - 10/29/2020 01:12:00 PM EST [facility] Patient discharged. Outpatient Referrer: PROVIDER SYSTEM IN [id number] 10/17/2020 0 4:52:39 PM EST intractable abd pain [facility] intractable abd pain Outpatient Attender: [facility] Lab 10/17/2020 01:3 8:00 PM EST [facility] Emergency Attender: MARCELLE GOMEZCOConsultant: Cait cortes MD 10/17/2020 11:18:00 AM EST - 10/17/2020 05:42:00 PM EST [facility] Patient discharged. Outpatient Attender: Angelica sharma 10/09/2020 10:30:00 AM EST [facility] ([facility] [place] [address] [facility] [address] 10/07/2020 12:00:00 AM EST eCW1 ([facility]) [place] [address] [facility] [address] 10/07/2020 12:00:00 AM EST eCW1 ([facility]) Outpatient Attender: Paulie Escamilla MDReferrer: ISIDRO Thomas [id number] 09/23/2020 05:23:26 AM EST [facility] [place] [address] [facility] [address] 08/25/2020 12:00:00 AM EST eCW1 ([facility]) Outpatient Attender: Paulie Escamilla MDReferrer: ISIDRO Thomas [...] [facility] [place] [address] [facility] [address] 08/18/2020 12:00:00 AM EDT eCW1 ([facility]) Outpatient Attender: Yarelis Blanchard 08/17/2020 12:00:00 AM ED T [facility] Unknown [address] [facility] [address] 08/15/2020 12:00:00 AM EDT eCW1 ([facility]) Outpatient Attender: Paulie Escamilla MDReferrer: ISIDRO Thomas [id number] 08/12/2020 12:10:37 PM EDT [facility] Outpatient Attender: Mich EatonReferrer: ISIDRO CARRILLO MD [id number] 08/12/2020 12:05:57 PM EDT [facility] Outpatient Attender: Narinder Iverson MDReferrer: ISIDRO CARRILLO MD [id number] 08/11/2020 04:18:25 AM EDT [facility] [place] [address] [facility] [address] 08/05/2020 12:00:00 AM EDT eCW1 ([facility]) Outpatient Attender: Narinder Iverson MDReferrer: ISIDRO CARRILLO MD [id number] 08/03/2020 09:58:35 AM EDT [facility] Outpatient Attender: Narinder Iverson MDReferrer: ISIDOR CARRILLO MD [id number] 08/03/2020 09:51:06 AM EDT [facility] Outpatient Attender: Narinder Iverson MDReferrer: ISIDRO CARRILLO MD [id number] 08/02/2020 08:21:51 AM EDT [facility] Outpatient Referrer: ISIDRO CARRILLO MD 08/02/2020 08:14:19 AM EDT [facility] Outpatient 08/02/2020 08:06:34 AM EDT [facility] INPATIENT Attender: RASHMI LEROY MD [id number] 08/01/2020 01:56 :38 PM EDT [facility] INPATIENT Attender: JOSE MIGUEL WESTON MDAt tender: Dinesh SorensonAdmitter: DINESH HENNING MDConsultant: Med IsabelConsultant: Julio Grayson MDConsultant: Michael Anton MD [id number] 07/31/2020 03:12:38 PM EDT - 08/04/2020 12:00:00 PM EDT [facility] Patient discharged. Outpatient Referrer: PROVIDER SYSTEM IN [id number] 07/31/2020 0 7:59:50 AM EDT [facility] abd pain Outpatient 07/31/2020 06:25:00 AM EDT [facility] Emergency Attender: CHERI BURRIS DOConsultant: Cait langston MD 07/31/2020 05:17:00 AM EDT - 07/31/2020 11:00:00 AM EDT [facility] Patient discharged. Outpatient 07/30/2020 03:50:00 PM EDT [facility] Emergency Attender: CHERI BURRIS DOConsultant: Cait langston MD 07/30/2020 03:19:00 PM EDT - 07/30/2020 07:25:00 PM EDT [facility] Patient discharged. Emergency Attender: ALEC CALDERÓN MDConsultant: Cait valerio MD 06/03/2020 04:15:00 PM EDT - 06/03/2020 08:21:00 PM EDT [facility] Patient discharged. Outpatient 05/31/2020 08:00:00 PM EDT [facility] Emergency Attender: Mikey Oswald PAConsultant: Cait meza MD 05/31/2020 07:27:00 PM EDT - 05/31/2020 10:28:00 PM EDT [facility] Patient discharged. Outpatient 05/22/2020 05:14:00 PM EDT [facility] Emergency Attender: ALEC CALDERÓN MDConsultant: ARLETTE FLORES DO 05/22/2020 04:24:00 PM EDT - 05/22/2020 07:40:00 PM EDT [facility] Patient discharged. Outpatient 04/25/2020 12:00:00 AM EDT [facility] [address] [facility] [address] 04/21/2020 12:00:00 AM EDT eCW1 ([facility]) Outpatient Referrer: CYNTHIA SIMMONS MD 04/07/2020 05:51:00 AM EDT [facility] Outpatient [address] [facility] [address] 04/05/2020 12:00:00 AM EDT eCW1 ([facility]) Unknown [address] [facility] [address] 04/05/2020 12:00:00 AM EDT eCW1 ([facility]) Outpatient Attender: Thong Castañeda MD [facility] Internal Med at [facility] 03/31/2020 09:05:00 AM EDT [facility] ([facility] [place] [address] [facility] [address] 03/31/2020 12:00:00 AM EDT eCW1 ([facility]) Thong Castañeda MD: [address], [place] [address], Ph. Attender: Thong Castañeda MD [facility] - Main Schedule 03/31/2020 12:00:00 AM EDT ROBERTO ([facility]) Unknown [address] [facility] [address] 03/30/2020 12:00:00 AM EDT [facility]CW1 [facility] Outpatient [address] [facility] [address] 03/28/2020 12:00:00 AM EDT eCW1 ([facility]) Unknown [address] [facility] [address] 03/28/2020 12:00:00 AM EDT eCW1 ([facility]) Unknown [address] [facility] Y [address] 03/25/2020 12:00:00 AM EDT [facility]CW1 ([facility] [place]) Unknown [address] [facility] [place] [address] 03/24/2020 12:00:00 AM EDT eCW1 ([facility]) Outpatient Attender: LAUREN KOHLER MDReferrer: CYNTHIA Thomas [id number] 03/22/2020 12:00:00 AM EDT - 03/22/2020 10:38:52 AM EDT Other specified diseases of pancreas [facility] Other specified diseases of pancreas [facility] [address] [facility] [place] [address] 03/01/2020 12:00:00 AM EDT eCW1 [facility] Outpatient Attender: RAMAKRISHNA CARNES [id number] 02/26/2020 12:00 :00 AM EDT [facility] Outpatient Attender: RAMAKRISHNA CARNES [id number] 02/23/2020 12:00:00 AM EDT Gastroparesis [facility] Gastroparesis [facility] [address] [place] [address], [place] [address] 02/19/2020 12:00:00 AM EDT eCW1 ([facility]) [address] [address] 02/18/2020 12:00:00 AM EDT eCW1 ([facility]) Outpatient Attender: RAMAKRISHNA CARNES [id number] 02/10/2020 12:00:00 AM EDT - 02/10/2020 01:41:27 PM EDT Adult failure to thrive [facility] Adult failure to thrive [address] [address] 02/08/2020 12:00:00 AM EDT eCW1 ([facility] [address] [address] 02/04/2020 12:00:00 AM EDT eCW1 ([facility] [address] [address] 02/04/2020 12:00:00 AM EDT eCW1 ([facility] [address] [address] 01/29/2020 12:00:00 AM EDT eCW1 ([facility] [address] [address] 01/28/2020 12:00:00 AM EDT eCW1 ([facility]) [address] [address] 01/21/2020 12:00:00 AM EDT eCW1 ([facility] [address] [address] 01/20/2020 12:00:00 AM EDT eCW1 ([facility] [address] [address] 01/20/2020 12:00:00 AM EDT eCW1 ([facility]) [facility] [address] [place] [address], [place] [address] 01/18/2020 12:00:00 AM EDT eCW1 ([facility]) [facility] [address] [place] [address], [place] [address] 01/18/2020 12:00:00 AM EDT eCW1 ([facility] [place]) Outpatient Referrer: CYNTHIA SIMMONS MD 01/13/2020 05:17:00 AM EDT [facility] [address] [address] 01/12/2020 12:00:00 AM EDT eCW1 ([facility] [place] [address] [address] 01/11/2020 12:00:00 AM EDT eCW1 ([facility] [address] [address] 01/07/2020 12:00:00 AM EDT eCW1 ([facility]) [address] [address] 01/05/2020 12:00:00 AM EDT eCW1 ([facility]) [address] [address] 01/05/2020 12:00:00 AM EDT eCW1 ([facility]) [address] [address] 01/04/2020 12:00:00 AM EDT eCW1 ([facility]) [address] [address] 01/04/2020 12:00:00 AM EDT eCW1 ([facility]) [address] [address] 01/04/2020 12:00:00 AM EDT eCW1 ([facility]) [facility] [place] [address] [facility] [address] 12/23/2019 12:00:00 AM EST eCW1 ([facility]) [facility] [place] [address] [facility] [address] 11/30/2019 12:00:00 AM EST eCW1 ([facility]) [facility] [place] [address] [facility] [address] 11/25/2019 12:00:00 AM EST eCW1 ([facility]) [facility] [place] [address] [facility] [address] 11/24/2019 12:00:00 AM EST eCW1 ([facility]) Outpatient Referrer: CYNTHIA SIMMONS MD 11/16/2019 01:29:00 PM [facility] Outpatient Attender: RAMAKRISHNA CARNES [id number] 11/16/2019 12:00:00 AM EST - 11/16/2019 02:57:30 PM [facility] [address] [facility] [address] 11/16/2019 12:00:00 AM EST eCW1 ([facility]) Outpatient Attender: Michelle Murray 11/16/2019 12:00:00 AM [facility] Outpatient Attender: RAMAKRISHNA CARNES [id number] 11/11/2019 12:00 :00 AM [facility] Outpatient Attender: LAUREN KOHLER MD 11/04/2019 12:00:00 AM [facility] Outpatient Attender: ENRIQUETA NORIEGA MDReferrer: ENRIQUETA NORIEGA MD 10/29/2019 12:00:00 AM [facility] Outpatient 10/27/2019 11:41:00 AM [facility] Emergency Attender: Tawanda SIMMONS-CConsultant: ARLETTE JAUREGUI DO 10/27/2019 11:19:00 AM EST - 10/27/2019 06:07:00 PM [facility] Patient discharged. Inpatient Attender: RAMAKRISHNA CARNES [id number] 44Attender: ENRIQUETA NORIEGA MDAttender: Edward Moreno MDAttender: LISS HALL MDAdmitter: Edward Moreno MDReferrer: PROVIDER SYSTEM INConsultant: RAMAKRISHNA CARNES [id number]: Edward Moreno MD [id number] 10/27/2019 12:00:00 AM EST - 11/02/2019 01:15:00 PM EST Unspecified abdominal pain [facility] Unspecified abdominal pain Patient discharged. [address] [address] 10/27/2019 12:00:00 AM EST [facility]CW1 ([facility]) Outpatient Attender: RAMAKRISHNA CARNES [id number] 10/23/2019 12:00 :[address] [address] 10/22/2019 12:00:00 AM EST eCW1 ([facility]) [address] [address] 10/19/2019 12:00:00 AM EST eCW1 ([facility]) [address] [place] [address] 10/16/2019 12:00:00 AM EST eCW1 ([facility]) [address] [address] 10/16/2019 12:00:00 AM EST eCW1 ([facility]) [address] [address] 10/12/2019 12:00:00 AM EST eCW1 ([facility]) Outpatient Attender: RAMAKRISHNA CARNES [id number] 12/06/2018 12:00:00 AM EST - 10/05/2019 02:09:38 PM EST Bariatric surgery status [facility] Bariatric surgery status Outpatient Attender: TANVI SHIPLEY [id number] 12:00:00 AM EST - 10/05/2019 02:09:54 PM [facility] Outpatient Attender: CIRO SERRANOeferrer: RAMAKRISHNA OCAMPO [id number] 10/05/2019 12:00:00 AM EST Dehydration [facility] Dehydration [facility] [address] [facility], [facility] [address] 10/05/2019 12:00:00 AM EST eCW1 ([facility]) Emergency Attender: Mich Torres MDAttender: Raymundo Thomas 09/27/2019 06:31:00 AM EST - 09/27/2019 04:20:00 PM EST RAPID HEART BEAT [facility] RAPID HEART BEAT Patient discharged. Inpatient Attender: Yarelis Anton r: RAMAKRISHNA CARNES [id number]: XIAO SAWYER MDAttender: HOUSTON CHAIDEZ MDAttender: Irene Block MDAdmitter: XIAO SAWYER MDReferrer: HOUSTON CHAIDEZ MDConsultant: JOHNATHON SCHAFER MDConsultant: HOUSTON CHAIDEZ MD [id number] 09/27/2019 12:00:00 A EST - 10/01/2019 03:09:00 PM EST Upper GI bleed, s/p gastric bypass with j-tube placement 3 weeks ago, pancreatitis. [facility] Upper GI bleed, s/p gastric bypass with j-tube placement 3 weeks ago, pancreatitis. Patient discharged. Outpatient Referrer: CYNTHIA SIMMONS MD 09/24/2019 09:50:00 PM EST [facility] [address], [facility] [id number] 09/22/2019 12:00:00 AM EST eCW1 ([facility]) Outpatient Attender: RAMAKRISHNA CARNES [id number] 11/22/2018 12:00:00 AM EST - 09/21/2019 12:39:24 PM EST longterm (current) use of anticoagulants [facility] long term acute care registered nurse (current) use of anticoagulant s Outpatient Attender: TANVI SHIPLEY [id number] 12:00:00 AM EST - 09/21/2019 12:39:08 PM EST [facility] [address] [place] [id number] 09/14/2019 12:00:00 AM EST eCW1 ([facility]) Inpatient Attender: RAMAKRISHNA DEYVI [id number]: RAMAKRISHNA MONYABRAM [id number] 09/01/2019 12:00:00 AM EST - 09/11/2019 01:48:00 PM EST Pain , unspecified [facility] Pain, unspecified Patient discharged. Medications Medication Brand [...] Potassium 10/09/2020 12:00:00 AM EST active MEDENT ([facility]) Zolpidem tartrate 10 MG Oral Tablet Zolpidem Tartrate 10 MG Zolpidem Tartrate 10 MG 08/25/2020 12:00:00 AM EST 1.0 {tablet_at_bedtime_as_needed} active Zolpidem Tartrate 10 MG eCW1 ([facility]) Zolpidem tartrate 10 MG Oral Tablet Zolpidem Tartrate 10 MG Zolpidem Tartrate 10 MG 08/25/2020 12:00:00 AM EST 1.0 {tablet_at_bedtime_as_needed} active Zolpidem Tartrate 10 MG [facility] ([facility]) Fluoxetine 4 MG/ML Oral Solution FLUoxetine HCl 20 MG/ 5ML FLUoxetine HCl 20 MG/5ML 08/25/2020 12:00:00 AM EST 5.0 {ml} active FLUoxetine HCl 20 MG/5ML eCW1 ([facility]) Fluoxetine 4 MG/ML Oral Solution FLUoxetine HCl 20 MG/ 5ML FLUoxetine HCl 20 MG/5ML 08/25/2020 12:00:00 AM EST 5.0 {ml} active FLUoxetine HCl 20 MG/5ML eCW1 ([facility]) Fluoxetine 4 MG/ML Oral Solution FLUoxetine HCl 20 MG/ 5ML FLUoxetine HCl 20 MG/5ML 08/25/2020 12:00:00 AM EST 5.0 {ml} active FLUoxetine HCl 20 MG/5ML eCW1 ([facility]) Fluoxetine 4 MG/ML Oral Solution FLUoxetine HCl 20 MG/ 5ML FLUoxetine HCl 20 MG/5ML 08/25/2020 12:00:00 AM EST 5.0 {ml} active FLUoxetine HCl 20 MG/5ML eCW1 ([facility]) Zolpidem tartrate 10 MG Oral Tablet Zolpidem Tartrate 10 MG Zolpidem Tartrate 10 MG 08/25/2020 12:00:00 AM EST 1.0 {tablet_at_bedtime_as_needed} active Zolpidem Tartrate 10 MG eCW1 ([facility]) Fluoxetine 4 MG/ML Oral Solution FLUoxetine HCl 20 MG/ 5ML FLUoxetine HCl 20 MG/5ML 08/25/2020 12:00:00 AM EST 5.0 {ml} active FLUoxetine HCl 20 MG/5ML eCW1 ([facility]) Zolpidem tartrate 10 MG Oral Tablet Zolpidem Tartrate 10 MG Zolpidem Tartrate 10 MG 08/25/2020 12:00:00 AM EST 1.0 {tablet_at_bedtime_as_needed} active Zolpidem Tartrate 10 MG eCW1 ([facility]) Zolpidem tartrate 10 MG Oral Tablet Zolpidem Tartrate 10 MG Zolpidem Tartrate 10 MG 08/25/2020 12:00:00 AM EST 1.0 {tablet_at_bedtime_as_needed} active Zolpidem Tartrate 10 MG eCW1 ([facility]) Levetiracetam 500 MG Oral Tablet levETIRAcetam (KEPPRA ) 500 mg tablet levETIRAcetam (KEPPRA) 500 mg tablet 08/04/2020 12:00:00 AM EDT 500 m g oral active Take 1 tablet (500 mg total) by mouth 2 (two) times a day. [facility] 10 mg 07/07/2020 12:00:00 AM EDT tablet 30 TAKE ONE TABLET BY MOUTH AT BEDTIME , MAXIMUM DAILY DOSE = 1 TABLET TAKE ONE TABLET BY MOUTH AT BEDTIME , MAXIMUM DAILY DOSE = 1 TABLET SOLD: 07/07/2020 [facility] 20 mg 06/30/2020 12:00:00 AM EDT capsule 90 TAKE ONE CAPSULE BY MOUTH EVERY DAY TAKE ONE CAPSULE BY MOUTH EVERY DAY SOLD: 07/07/2020 [facility] Zolpidem tartrate 5 MG Oral Tablet Zolpidem Tartrate 5 MG Zolpidem Tartrate 5 MG 04/21/2020 12:00:00 AM EDT 1.5 {tablet_at_bedtime} active Zolpidem Tartrate 5 MG eCW1 ([facility]) Zolpidem tartrate 5 MG Oral Tablet Zolpidem Tartrate 5 MG Zolpidem Tartrate 5 MG 04/21/2020 12:00:00 AM EDT 1.5 {tablet_at_bedtime} active Zolpidem Tartrate 5 MG eCW1 ([facility]) Zolpidem tartrate 5 MG Oral Tablet Zolpidem Tartrate 5 MG Zolpidem Tartrate 5 MG 04/21/2020 12:00:00 AM EDT 1.5 {tablet_at_bedtime} active Zolpidem Tartrate 5 MG eCW1 ([facility]) Amylases 71915 UNT / Endopeptidases 9500 UNT / Lipase 3000 UNT Delayed Release Oral Capsule Pancrelipase (Ail-Lmlk-Qtch) 2786-3119 UNIT Oral Capsule Delayed Release Particles (Creon) Pancrelipase (Abg-Gcld-Yvnb) 1162-1573 U NIT Oral Capsule Delayed Release Particles (Creon) 04/07/2020 12:00:00 AM EDT Oral active Pancreatic insufficiency Take 1 capsule by mouth Three times daily before [facility] Pancreatic insufficiency Zolpidem tartrate 10 MG Oral Tablet Zolpidem Tartrate 10 MG Zolpidem Tartrate 10 MG 03/28/2020 12:00:00 AM EDT 1.0 {tablet_at_bedtime_as_needed} active Zolpidem Tartrate 10 MG eCW1 ([facility]) [facility]. Devices (DURABLE MEDICAL EQUIPMENT SEE SIG) [place] [facility] [id number] 03/28/2020 12:00:00 AM EDT act lucia Jejunostomy tube presentChronic narcotic useOn total parenteral nutrition (TPN)History of Nadege-en-Y gastric bypassAnticoagulatedDietary counseling and surveillanceBody mass index (BMI) 22.0-22.9, adultFunctional diarrheaFailure to thrive in adultStatus post bariatric surgery Use as directed. Please draw the following labs weekly: CMP, Mg, Phos, CBC and diff, prealbumin. And a monthly triglyceride. Thank you. [facility] Jejunostomy tube present Chronic narcotic use On [...] {tablet_at_bedtime_as_needed} active Zolpidem Tartrate 10 MG eCW1 ([facility]) Zolpidem tartrate 10 MG Oral Tablet Zolpidem Tartrate 10 MG Zolpidem Tartrate 10 MG 03/28/2020 12:00:00 AM EDT 1.0 {tablet_at_bedtime_as_needed} active Zolpidem Tartrate 10 MG eCW1 ([facility]) Zolpidem tartrate 10 MG Oral Tablet Zolpidem Tartrate 10 MG Zolpidem Tartrate 10 MG 03/28/2020 12:00:00 AM EDT 1.0 {tablet_at_bedtime_as_needed} active Zolpidem Tartrate 10 MG eCW1 ([facility]) Zolpidem tartrate 10 MG Oral Tablet Zolpidem Tartrate 10 MG Zolpidem Tartrate 10 MG 03/28/2020 12:00:00 AM EDT 1.0 {tablet_at_bedtime_as_needed} active Zolpidem Tartrate 10 MG eCW1 ([facility]) Zolpidem tartrate 10 MG Oral Tablet Zolpidem Tartrate 10 MG Zolpidem Tartrate 10 MG 03/28/2020 12:00:00 AM EDT 1.0 {tablet_at_bedtime_as_needed} active Zolpidem Tartrate 10 MG eCW1 ([facility]) Oxycodone Hydrochloride 5 MG Oral Tablet Oxycodone HCl 5 MG Oxycodone HCl 5 MG 03/25/2020 12:00:00 AM EDT active Oxycodone HCl 5 MG eCW1 ([facility]) Oxycodone Hydrochloride 5 MG Oral Tablet Oxycodone HCl 5 MG Oxycodone HCl 5 MG 03/25/2020 12:00:00 AM EDT active Oxycodone HCl 5 MG eCW1 ([facility]) DiphenhydrAMINE HCl 50 MG/ML DiphenhydrAMINE HCl 50 MG/ML 12:00:00 AM EDT active DiphenhydrAMINE H Cl 50 MG/ML eCW1 ([facility]) 0.8 ML Enoxaparin sodium 100 MG/ML Prefi lled Syringe [Lovenox] Lovenox 80 MG/0.8ML Lovenox 80 MG/0.8ML 03/24/2020 12:00:00 AM EDT 0.7 {ml} active Lovenox 80 MG/0.8ML eCW1 ([facility]) 200 ACTUAT Albuterol 0.09 MG/ACTUAT Mete red Dose Inhaler [Ventolin] Ventolin HFA 108 (90 Base) MCG/ACT Ventolin HFA 108 (90 Base) MCG/ACT 03/24/2020 12:00:00 AM EDT 1.0 {puff_as_needed} active Donovan tolin HFA 108 (90 Base) MCG/ACT eCW1 ([facility]) Acetaminophen 500 MG Oral Tablet Acetaminophen 500 MG 2019 12:00:00 AM EDT 1.0 {tablet_as_needed} active A cetaminophen 500 MG eCW1 ([facility]) Heparin Lock Flush 100 UNIT/ML UNK 03/24/2020 12:00:00 AM EDT active Heparin Lock Flush 100 UNIT/ML eCW1 ([facility]) DiphenhydrAMINE HCl 50 MG/ML DiphenhydrAMINE HCl 50 MG/ML 12:00:00 AM EDT active DiphenhydrAMINE H Cl 50 MG/ML eCW1 ([facility]) DiphenhydrAMINE HCl 50 MG/ML DiphenhydrAMINE HCl 50 MG/ML 12:00:00 AM EDT active DiphenhydrAMINE H Cl 50 MG/ML eCW1 ([facility]) 1 ML Enoxaparin sodium 100 MG/ML Prefilled Syringe [Lo venox] Lovenox 100 MG/ML Lovenox 100 MG/ML 03/24/2020 12:00:00 AM EDT active Lovenox 100 MG/ML eCW1 ([facility]) alpha-Tocopherol Acetate 1 UNT/ML / Asco rbic Acid 20 MG/ML / Biotin 0.006 MG/ML / Cholecalciferol 20 UNT/ML / dexpanthenol 1.5 MG/ML / Folic Acid 0.06 MG/ML / Niacinamide 4 MG/ML / Pyridoxine Hydrochloride 0.6 MG/ML / retinyl palmitate 330 UNT/ML / Ribofl Infuvite Adult - Infuvite Adult - 03/24/2020 12:00:00 AM EDT active Infuvite Adult - eCW1 ([facility]) 200 ACTUAT Albuterol 0.09 MG/ACTUAT Mete red Dose Inhaler [Ventolin] Ventolin HFA 108 (90 Base) MCG/ACT Ventolin HFA 108 (90 Base) MCG/ACT 03/24/2020 12:00:00 AM EDT 1.0 {puff_as_needed} active Donovan tolin HFA 108 (90 Base) MCG/ACT eCW1 ([facility]) alpha-Tocopherol Acetate 1 UNT/ML / Asco rbic Acid 20 MG/ML / Biotin 0.006 MG/ML / Cholecalciferol 20 UNT/ML / dexpanthenol 1.5 MG/ML / Folic Acid 0.06 MG/ML / Niacinamide 4 MG/ML / Pyridoxine Hydrochloride 0.6 MG/ML / retinyl palmitate 330 UNT/ML / Ribofl Infuvite Adult - Infuvite Adult - 03/24/2020 12:00:00 AM EDT active Infuvite Adult - eCW1 ([facility]) DiphenhydrAMINE HCl 50 MG/ML DiphenhydrAMINE HCl 50 MG/ML 12:00:00 AM EDT active DiphenhydrAMINE H Cl 50 MG/ML eCW1 ([facility]) DiphenhydrAMINE HCl 50 MG/ML DiphenhydrAMINE HCl 50 MG/ML 12:00:00 AM EDT active DiphenhydrAMINE H Cl 50 MG/ML eCW1 ([facility]) 200 ACTUAT Albuterol 0.09 MG/ACTUAT Mete red Dose Inhaler [Ventolin] Ventolin HFA 108 (90 Base) MCG/ACT Ventolin HFA 108 (90 Base) MCG/ACT 03/24/2020 12:00:00 AM EDT 1.0 {puff_as_needed} active Donovan tolin HFA 108 (90 Base) MCG/ACT eCW1 ([facility]) Heparin Lock Flush 100 UNIT/ML UNK 03/24/2020 12:00:00 AM EDT active Heparin Lock Flush 100 UNIT/ML eCW1 ([facility]) Heparin Lock Flush 100 UNIT/ML UNK 03/24/2020 12:00:00 AM EDT active Heparin Lock Flush 100 UNIT/ML eCW1 ([facility]) Amylases 69651 UNT / Endopeptidases 9500 UNT / Lipase 3000 UNT Delayed Release Oral Capsule [Creon] Creon [id number] UNIT Creon [id number] UNIT 03/24/2020 12:00:00 AM EDT active Creon 30 00-9500 UNIT eCW1 ([facility]) Albuterol 0.83 MG/ML Inhalant Solution Albuterol Sulfa te (2.5 MG/3ML) 0.083% Albuterol Sulfate (2.5 MG/3ML) 0.083% 03/24/2020 12:00:00 AM EDT 3.0 {ml_as_needed} active Albuterol Sulfate (2.5 MG/3ML) 0.083% eCW1 ([facility]) Heparin Lock Flush 100 UNIT/ML UNK 03/24/2020 12:00:00 AM EDT active Heparin Lock Flush 100 UNIT/ML eCW1 ([facility]) 200 ACTUAT Albuterol 0.09 MG/ACTUAT Mete red Dose Inhaler [Ventolin] Ventolin HFA 108 (90 Base) MCG/ACT Ventolin HFA 108 (90 Base) MCG/ACT 03/24/2020 12:00:00 AM EDT 1.0 {puff_as_needed} active Donovan tolin HFA 108 (90 Base) MCG/ACT eCW1 ([facility]) Acetaminophen 500 MG Oral Tablet Acetaminophen 500 MG 2019 12:00:00 AM EDT 1.0 {tablet_as_needed} active A cetaminophen 500 MG eCW1 ([facility]) Albuterol 0.83 MG/ML Inhalant Solution Albuterol Sulfa te (2.5 MG/3ML) 0.083% Albuterol Sulfate (2.5 MG/3ML) 0.083% 03/24/2020 12:00:00 AM EDT 3.0 {ml_as_needed} active Albuterol Sulfate (2.5 MG/3ML) 0.083% eCW1 ([facility]) 0.8 ML Enoxaparin sodium 100 MG/ML Prefi lled Syringe [Lovenox] Lovenox 80 MG/0.8ML Lovenox 80 MG/0.8ML 03/24/2020 12:00:00 AM EDT 0.7 {ml} active Lovenox 80 MG/0.8ML eCW1 ([facility]) Albuterol 0.83 MG/ML Inhalant Solution Albuterol Sulfa te (2.5 MG/3ML) 0.083% Albuterol Sulfate (2.5 MG/3ML) 0.083% 03/24/2020 12:00:00 AM EDT 3.0 {ml_as_needed} active Albuterol Sulfate (2.5 MG/3ML) 0.083% eCW1 ([facility]) alpha-Tocopherol Acetate 1 UNT/ML / Asco rbic Acid 20 MG/ML / Biotin 0.006 MG/ML / Cholecalciferol 20 UNT/ML / dexpanthenol 1.5 MG/ML / Folic Acid 0.06 MG/ML / Niacinamide 4 MG/ML / Pyridoxine Hydrochloride 0.6 MG/ML / retinyl palmitate 330 UNT/ML / Ribofl Infuvite Adult - Infuvite Adult - 03/24/2020 12:00:00 AM EDT active Infuvite Adult - eCW1 ([facility]) alpha-Tocopherol Acetate 1 UNT/ML / Asco rbic Acid 20 MG/ML / Biotin 0.006 MG/ML / Cholecalciferol 20 UNT/ML / dexpanthenol 1.5 MG/ML / Folic Acid 0.06 MG/ML / Niacinamide 4 MG/ML / Pyridoxine Hydrochloride 0.6 MG/ML / retinyl palmitate 330 UNT/ML / Ribofl Infuvite Adult - Infuvite Adult - 03/24/2020 12:00:00 AM EDT active Infuvite Adult - eCW1 ([facility]) 200 ACTUAT Albuterol 0.09 MG/ACTUAT Mete red Dose Inhaler [Ventolin] Ventolin HFA 108 (90 Base) MCG/ACT Ventolin HFA 108 (90 Base) MCG/ACT 03/24/2020 12:00:00 AM EDT 1.0 {puff_as_needed} active Donovan tolin HFA 108 (90 Base) MCG/ACT eCW1 ([facility]) 200 ACTUAT Albuterol 0.09 MG/ACTUAT Mete red Dose Inhaler [Ventolin] Ventolin HFA 108 (90 Base) MCG/ACT Ventolin HFA 108 (90 Base) MCG/ACT 03/24/2020 12:00:00 AM EDT 1.0 {puff_as_needed} active Donovan tolin HFA 108 (90 Base) MCG/ACT eCW1 ([facility]) 0.8 ML Enoxaparin sodium 100 MG/ML Prefi lled Syringe [Lovenox] Lovenox 80 MG/0.8ML Lovenox 80 MG/0.8ML 03/24/2020 12:00:00 AM EDT 0.7 {ml} active Lovenox 80 MG/0.8ML eCW1 ([facility]) Albuterol 0.83 MG/ML Inhalant Solution Albuterol Sulfa te (2.5 MG/3ML) 0.083% Albuterol Sulfate (2.5 MG/3ML) 0.083% 03/24/2020 12:00:00 AM EDT 3.0 {ml_as_needed} active Albuterol Sulfate (2.5 MG/3ML) 0.083% eCW1 ([facility]) Amylases 10141 UNT / Endopeptidases 9500 UNT / Lipase 3000 UNT Delayed Release Oral Capsule [Creon] Creon [id number] UNIT Creon [id number] UNIT 03/24/2020 12:00:00 AM EDT active Creon 30 00-9500 UNIT eCW1 ([facility]) alpha-Tocopherol Acetate 1 UNT/ML / Asco rbic Acid 20 MG/ML / Biotin 0.006 MG/ML / Cholecalciferol 20 UNT/ML / dexpanthenol 1.5 MG/ML / Folic Acid 0.06 MG/ML / Niacinamide 4 MG/ML / Pyridoxine Hydrochloride 0.6 MG/ML / retinyl palmitate 330 UNT/ML / Ribofl Infuvite Adult - Infuvite Adult - 03/24/2020 12:00:00 AM EDT active Infuvite Adult - eCW1 ([facility]) 200 ACTUAT Albuterol 0.09 MG/ACTUAT Mete red Dose Inhaler [Ventolin] Ventolin HFA 108 (90 Base) MCG/ACT Ventolin HFA 108 (90 Base) MCG/ACT 03/24/2020 12:00:00 AM EDT 1.0 {puff_as_needed} active Donovan tolin HFA 108 (90 Base) MCG/ACT eCW1 ([facility]) Heparin Lock Flush 100 UNIT/ML UNK 03/24/2020 12:00:00 AM EDT active Heparin Lock Flush 100 UNIT/ML eCW1 ([facility]) alpha-Tocopherol Acetate 1 UNT/ML / Asco rbic Acid 20 MG/ML / Biotin 0.006 MG/ML / Cholecalciferol 20 UNT/ML / dexpanthenol 1.5 MG/ML / Folic Acid 0.06 MG/ML / Niacinamide 4 MG/ML / Pyridoxine Hydrochloride 0.6 MG/ML / retinyl palmitate 330 UNT/ML / Ribofl Infuvite Adult - Infuvite Adult - 03/24/2020 12:00:00 AM EDT active Infuvite Adult - eCW1 ([facility]) Acetaminophen 500 MG Oral Tablet Acetaminophen 500 MG 2019 12:00:00 AM EDT 1.0 {tablet_as_needed} active A cetaminophen 500 MG eCW1 ([facility]) Albuterol 0.83 MG/ML Inhalant Solution Albuterol Sulfa te (2.5 MG/3ML) 0.083% Albuterol Sulfate (2.5 MG/3ML) 0.083% 03/24/2020 12:00:00 AM EDT 3.0 {ml_as_needed} active Albuterol Sulfate (2.5 MG/3ML) 0.083% eCW1 ([facility]) Heparin Lock Flush 100 UNIT/ML UNK 03/24/2020 12:00:00 AM EDT active Heparin Lock Flush 100 UNIT/ML eCW1 ([facility]) 0.8 ML Enoxaparin sodium 100 MG/ML Prefi lled Syringe [Lovenox] Lovenox 80 MG/0.8ML Lovenox 80 MG/0.8ML 03/24/2020 12:00:00 AM EDT 0.7 {ml} active Lovenox 80 MG/0.8ML eCW1 ([facility]) Acetaminophen 500 MG Oral Tablet Acetaminophen 500 MG 2019 12:00:00 AM EDT 1.0 {tablet_as_needed} active A cetaminophen 500 MG eCW1 ([facility]) Heparin Lock Flush 100 UNIT/ML UNK 03/24/2020 12:00:00 AM EDT active Heparin Lock Flush 100 UNIT/ML eCW1 ([facility]) 0.8 ML Enoxaparin sodium 100 MG/ML Prefi lled Syringe [Lovenox] Lovenox 80 MG/0.8ML Lovenox 80 MG/0.8ML 03/24/2020 12:00:00 AM EDT 0.7 {ml} active Lovenox 80 MG/0.8ML eCW1 ([facility]) Albuterol 0.83 MG/ML Inhalant Solution Albuterol Sulfa te (2.5 MG/3ML) 0.083% Albuterol Sulfate (2.5 MG/3ML) 0.083% 03/24/2020 12:00:00 AM EDT 3.0 {ml_as_needed} active Albuterol Sulfate (2.5 MG/3ML) 0.083% eCW1 ([facility]) 1 ML Enoxaparin sodium 100 MG/ML Prefilled Syringe [Lo venox] Lovenox 100 MG/ML Lovenox 100 MG/ML 03/24/2020 12:00:00 AM EDT active Lovenox 100 MG/ML eCW1 ([facility]) Heparin Lock Flush 100 UNIT/ML UNK 03/24/2020 12:00:00 AM EDT active Heparin Lock Flush 100 UNIT/ML eCW1 ([facility]) alpha-Tocopherol Acetate 1 UNT/ML / Asco rbic Acid 20 MG/ML / Biotin 0.006 MG/ML / Cholecalciferol 20 UNT/ML / dexpanthenol 1.5 MG/ML / Folic Acid 0.06 MG/ML / Niacinamide 4 MG/ML / Pyridoxine Hydrochloride 0.6 MG/ML / retinyl palmitate 330 UNT/ML / Ribofl Infuvite Adult - Infuvite Adult - 03/24/2020 12:00:00 AM EDT active Infuvite Adult - eCW1 ([facility]) DiphenhydrAMINE HCl 50 MG/ML DiphenhydrAMINE HCl 50 MG/ML 12:00:00 AM EDT active DiphenhydrAMINE H Cl 50 MG/ML eCW1 ([facility]) Acetaminophen 500 MG Oral Tablet Acetaminophen 500 MG 2019 12:00:00 AM EDT 1.0 {tablet_as_needed} active A cetaminophen 500 MG eCW1 ([facility]) alpha-Tocopherol Acetate 1 UNT/ML / Asco rbic Acid 20 MG/ML / Biotin 0.006 MG/ML / Cholecalciferol 20 UNT/ML / dexpanthenol 1.5 MG/ML / Folic Acid 0.06 MG/ML / Niacinamide 4 MG/ML / Pyridoxine Hydrochloride 0.6 MG/ML / retinyl palmitate 330 UNT/ML / Ribofl Infuvite Adult - Infuvite Adult - 03/24/2020 12:00:00 AM EDT active Infuvite Adult - eCW1 ([facility]) DiphenhydrAMINE HCl 50 MG/ML DiphenhydrAMINE HCl 50 MG/ML 12:00:00 AM EDT active DiphenhydrAMINE H Cl 50 MG/ML eCW1 ([facility]) alpha-Tocopherol Acetate 1 UNT/ML / Asco rbic Acid 20 MG/ML / Biotin 0.006 MG/ML / Cholecalciferol 20 UNT/ML / dexpanthenol 1.5 MG/ML / Folic Acid 0.06 MG/ML / Niacinamide 4 MG/ML / Pyridoxine Hydrochloride 0.6 MG/ML / retinyl palmitate 330 UNT/ML / Ribofl Infuvite Adult - Infuvite Adult - 03/24/2020 12:00:00 AM EDT active Infuvite Adult - eCW1 ([facility]) 1 ML Enoxaparin sodium 100 MG/ML Prefilled Syringe [Lo venox] Lovenox 100 MG/ML Lovenox 100 MG/ML 03/24/2020 12:00:00 AM EDT active Lovenox 100 MG/ML eCW1 ([facility]) Amylases 51101 UNT / Endopeptidases 9500 UNT / Lipase 3000 UNT Delayed Release Oral Capsule [Creon] Creon [id number] UNIT Creon [id number] UNIT 03/24/2020 12:00:00 AM EDT active Creon 30 00-9500 UNIT eCW1 ([facility]) DiphenhydrAMINE HCl 50 MG/ML DiphenhydrAMINE HCl 50 MG/ML 12:00:00 AM EDT active DiphenhydrAMINE H Cl 50 MG/ML eCW1 ([facility]) 200 ACTUAT Albuterol 0.09 MG/ACTUAT Mete red Dose Inhaler [Ventolin] Ventolin HFA 108 (90 Base) MCG/ACT Ventolin HFA 108 (90 Base) MCG/ACT 03/24/2020 12:00:00 AM EDT 1.0 {puff_as_needed} active Donovan tolin HFA 108 (90 Base) MCG/ACT eCW1 ([facility]) 1 ML Enoxaparin sodium 100 MG/ML Prefilled Syringe [Lo venox] Lovenox 100 MG/ML Lovenox 100 MG/ML 03/24/2020 12:00:00 AM EDT active Lovenox 100 MG/ML eCW1 ([facility]) 200 ACTUAT Albuterol 0.09 MG/ACTUAT Mete red Dose Inhaler [Ventolin] Ventolin HFA 108 (90 Base) MCG/ACT Ventolin HFA 108 (90 Base) MCG/ACT 03/24/2020 12:00:00 AM EDT 1.0 {puff_as_needed} active Donovan tolin HFA 108 (90 Base) MCG/ACT eCW1 ([facility]) alpha-Tocopherol Acetate 1 UNT/ML / Asco rbic Acid 20 MG/ML / Biotin 0.006 MG/ML / Cholecalciferol 20 UNT/ML / dexpanthenol 1.5 MG/ML / Folic Acid 0.06 MG/ML / Niacinamide 4 MG/ML / Pyridoxine Hydrochloride 0.6 MG/ML / retinyl palmitate 330 UNT/ML / Ribofl Infuvite Adult - Infuvite Adult - 03/24/2020 12:00:00 AM EDT active Infuvite Adult - eCW1 ([facility]) DiphenhydrAMINE HCl 50 MG/ML DiphenhydrAMINE HCl 50 MG/ML 12:00:00 AM EDT active DiphenhydrAMINE H Cl 50 MG/ML eCW1 ([facility]) Acetaminophen 500 MG Oral Tablet Acetaminophen 500 MG 2019 12:00:00 AM EDT 1.0 {tablet_as_needed} active A cetaminophen 500 MG eCW1 ([facility]) 200 ACTUAT Albuterol 0.09 MG/ACTUAT Mete red Dose Inhaler [Ventolin] Ventolin HFA 108 (90 Base) MCG/ACT Ventolin HFA 108 (90 Base) MCG/ACT 03/24/2020 12:00:00 AM EDT 1.0 {puff_as_needed} active Donovan tolin HFA 108 (90 Base) MCG/ACT eCW1 ([facility]) Albuterol 0.83 MG/ML Inhalant Solution Albuterol Sulfa te (2.5 MG/3ML) 0.083% Albuterol Sulfate (2.5 MG/3ML) 0.083% 03/24/2020 12:00:00 AM EDT 3.0 {ml_as_needed} active Albuterol Sulfate (2.5 MG/3ML) 0.083% eCW1 ([facility]) Amylases 31794 UNT / Endopeptidases 9500 UNT / Lipase 3000 UNT Delayed Release Oral Capsule [Creon] Creon [id number] UNIT Creon [id number] UNIT 03/24/2020 12:00:00 AM EDT active Creon 30 00-9500 UNIT eCW1 ([facility]) Albuterol 0.83 MG/ML Inhalant Solution Albuterol Sulfa te (2.5 MG/3ML) 0.083% Albuterol Sulfate (2.5 MG/3ML) 0.083% 03/24/2020 12:00:00 AM EDT 3.0 {ml_as_needed} active Albuterol Sulfate (2.5 MG/3ML) 0.083% eCW1 ([facility]) Amylases 92386 UNT / Endopeptidases 9500 UNT / Lipase 3000 UNT Delayed Release Oral Capsule [Creon] Creon [id number] UNIT Creon [id number] UNIT 03/24/2020 12:00:00 AM EDT active Creon 30 00-9500 UNIT eCW1 ([facility]) DiphenhydrAMINE HCl 50 MG/ML DiphenhydrAMINE HCl 50 MG/ML 12:00:00 AM EDT active DiphenhydrAMINE H Cl 50 MG/ML eCW1 ([facility]) DiphenhydrAMINE HCl 50 MG/ML DiphenhydrAMINE HCl 50 MG/ML 12:00:00 AM EDT active DiphenhydrAMINE H Cl 50 MG/ML eCW1 ([facility]) Albuterol 0.83 MG/ML Inhalant Solution Albuterol Sulfa te (2.5 MG/3ML) 0.083% Albuterol Sulfate (2.5 MG/3ML) 0.083% 03/24/2020 12:00:00 AM EDT 3.0 {ml_as_needed} active Albuterol Sulfate (2.5 MG/3ML) 0.083% eCW1 ([facility]) Heparin Lock Flush 100 UNIT/ML UNK 03/24/2020 12:00:00 AM EDT active Heparin Lock Flush 100 UNIT/ML eCW1 ([facility]) 0.8 ML Enoxaparin sodium 100 MG/ML Prefi lled Syringe [Lovenox] Lovenox 80 MG/0.8ML Lovenox 80 MG/0.8ML 03/24/2020 12:00:00 AM EDT 0.7 {ml} active Lovenox 80 MG/0.8ML eCW1 ([facility]) alpha-Tocopherol Acetate 1 UNT/ML / Asco rbic Acid 20 MG/ML / Biotin 0.006 MG/ML / Cholecalciferol 20 UNT/ML / dexpanthenol 1.5 MG/ML / Folic Acid 0.06 MG/ML / Niacinamide 4 MG/ML / Pyridoxine Hydrochloride 0.6 MG/ML / retinyl palmitate 330 UNT/ML / Ribofl Infuvite Adult - Infuvite Adult - 03/24/2020 12:00:00 AM EDT active Infuvite Adult - eCW1 ([facility]) DiphenhydrAMINE HCl 50 MG/ML DiphenhydrAMINE HCl 50 MG/ML 12:00:00 AM EDT active DiphenhydrAMINE H Cl 50 MG/ML eCW1 ([facility]) Albuterol 0.83 MG/ML Inhalant Solution Albuterol Sulfa te (2.5 MG/3ML) 0.083% Albuterol Sulfate (2.5 MG/3ML) 0.083% 03/24/2020 12:00:00 AM EDT 3.0 {ml_as_needed} active Albuterol Sulfate (2.5 MG/3ML) 0.083% eCW1 ([facility]) Amylases 71166 UNT / Endopeptidases 9500 UNT / Lipase 3000 UNT Delayed Release Oral Capsule [Creon] Creon [id number] UNIT Creon [id number] UNIT 03/24/2020 12:00:00 AM EDT active Creon 30 00-9500 UNIT eCW1 ([facility]) 0.8 ML Enoxaparin sodium 100 MG/ML Prefi lled Syringe [Lovenox] Lovenox 80 MG/0.8ML Lovenox 80 MG/0.8ML 03/24/2020 12:00:00 AM EDT 0.7 {ml} active Lovenox 80 MG/0.8ML eCW1 ([facility]) Acetaminophen 500 MG Oral Tablet Acetaminophen 500 MG 2019 12:00:00 AM EDT 1.0 {tablet_as_needed} active A cetaminophen 500 MG eCW1 ([facility]) Albuterol 0.83 MG/ML Inhalant Solution Albuterol Sulfa te (2.5 MG/3ML) 0.083% Albuterol Sulfate (2.5 MG/3ML) 0.083% 03/24/2020 12:00:00 AM EDT 3.0 {ml_as_needed} active Albuterol Sulfate (2.5 MG/3ML) 0.083% eCW1 ([facility]) Heparin Lock Flush 100 UNIT/ML UNK 03/24/2020 12:00:00 AM EDT active Heparin Lock Flush 100 UNIT/ML eCW1 ([facility]) Acetaminophen 500 MG Oral Tablet Acetaminophen 500 MG 2019 12:00:00 AM EDT 1.0 {tablet_as_needed} active A cetaminophen 500 MG eCW1 ([facility]) Albuterol 0.83 MG/ML Inhalant Solution Albuterol Sulfa te (2.5 MG/3ML) 0.083% Albuterol Sulfate (2.5 MG/3ML) 0.083% 03/24/2020 12:00:00 AM EDT 3.0 {ml_as_needed} active Albuterol Sulfate (2.5 MG/3ML) 0.083% eCW1 ([facility]) 200 ACTUAT Albuterol 0.09 MG/ACTUAT Mete red Dose Inhaler [Ventolin] Ventolin HFA 108 (90 Base) MCG/ACT Ventolin HFA 108 (90 Base) MCG/ACT 03/24/2020 12:00:00 AM EDT 1.0 {puff_as_needed} active Donovan tolin HFA 108 (90 Base) MCG/ACT eCW1 ([facility]) 200 ACTUAT Albuterol 0.09 MG/ACTUAT Mete red Dose Inhaler [Ventolin] Ventolin HFA 108 (90 Base) MCG/ACT Ventolin HFA 108 (90 Base) MCG/ACT 03/24/2020 12:00:00 AM EDT 1.0 {puff_as_needed} active Donovan tolin HFA 108 (90 Base) MCG/ACT eCW1 ([facility]) 200 ACTUAT Albuterol 0.09 MG/ACTUAT Mete red Dose Inhaler [Ventolin] Ventolin HFA 108 (90 Base) MCG/ACT Ventolin HFA 108 (90 Base) MCG/ACT 03/24/2020 12:00:00 AM EDT 1.0 {puff_as_needed} active Donovan tolin HFA 108 (90 Base) MCG/ACT eCW1 ([facility]) alpha-Tocopherol Acetate 1 UNT/ML / Asco rbic Acid 20 MG/ML / Biotin 0.006 MG/ML / Cholecalciferol 20 UNT/ML / dexpanthenol 1.5 MG/ML / Folic Acid 0.06 MG/ML / Niacinamide 4 MG/ML / Pyridoxine Hydrochloride 0.6 MG/ML / retinyl palmitate 330 UNT/ML / Ribofl Infuvite Adult - Infuvite Adult - 03/24/2020 12:00:00 AM EDT active Infuvite Adult - eCW1 ([facility]) 200 ACTUAT Albuterol 0.09 MG/ACTUAT Mete red Dose Inhaler [Ventolin] Ventolin HFA 108 (90 Base) MCG/ACT Ventolin HFA 108 (90 Base) MCG/ACT 03/24/2020 12:00:00 AM EDT 1.0 {puff_as_needed} active Donovan tolin HFA 108 (90 Base) MCG/ACT eCW1 ([facility]) 0.8 ML Enoxaparin sodium 100 MG/ML Prefi lled Syringe [Lovenox] Lovenox 80 MG/0.8ML Lovenox 80 MG/0.8ML 03/24/2020 12:00:00 AM EDT 0.7 {ml} active Lovenox 80 MG/0.8ML eCW1 ([facility]) Amylases 83293 UNT / Endopeptidases 9500 UNT / Lipase 3000 UNT Delayed Release Oral Capsule [Creon] Creon [id number] UNIT Creon 6847-4737 UNIT 03/24/2020 12:00:00 AM EDT active Creon 30 00-9500 UNIT eCW1 ([facility]) Albuterol 0.83 MG/ML Inhalant Solution Albuterol Sulfa te (2.5 MG/3ML) 0.083% Albuterol Sulfate (2.5 MG/3ML) 0.083% 03/24/2020 12:00:00 AM EDT 3.0 {ml_as_needed} active Albuterol Sulfate (2.5 MG/3ML) 0.083% eCW1 ([facility]) Heparin Lock Flush 100 UNIT/ML UNK 03/24/2020 12:00:00 AM EDT active Heparin Lock Flush 100 UNIT/ML eCW1 ([facility]) Heparin Lock Flush 100 UNIT/ML UNK 03/24/2020 12:00:00 AM EDT active Heparin Lock Flush 100 UNIT/ML eCW1 ([facility]) 0.8 ML Enoxaparin sodium 100 MG/ML Prefi lled Syringe [Lovenox] Lovenox 80 MG/0.8ML Lovenox 80 MG/0.8ML 03/24/2020 12:00:00 AM EDT 0.7 {ml} active Lovenox 80 MG/0.8ML eCW1 ([facility]) alpha-Tocopherol Acetate 1 UNT/ML / Asco rbic Acid 20 MG/ML / Biotin 0.006 MG/ML / Cholecalciferol 20 UNT/ML / dexpanthenol 1.5 MG/ML / Folic Acid 0.06 MG/ML / Niacinamide 4 MG/ML / Pyridoxine Hydrochloride 0.6 MG/ML / retinyl palmitate 330 UNT/ML / Ribofl Infuvite Adult - Infuvite Adult - 03/24/2020 12:00:00 AM EDT active Infuvite Adult - eCW1 ([facility]) Heparin Lock Flush 100 UNIT/ML UNK 03/24/2020 12:00:00 AM EDT active Heparin Lock Flush 100 UNIT/ML eCW1 ([facility]) 200 ACTUAT Albuterol 0.09 MG/ACTUAT Mete red Dose Inhaler [Ventolin] Ventolin HFA 108 (90 Base) MCG/ACT Ventolin HFA 108 (90 Base) MCG/ACT 03/24/2020 12:00:00 AM EDT 1.0 {puff_as_needed} active Donovan tolin HFA 108 (90 Base) MCG/ACT eCW1 ([facility]) Acetaminophen 500 MG Oral Tablet Acetaminophen 500 MG 2019 12:00:00 AM EDT 1.0 {tablet_as_needed} active A cetaminophen 500 MG eCW1 ([facility]) Albuterol 0.83 MG/ML Inhalant Solution Albuterol Sulfa te (2.5 MG/3ML) 0.083% Albuterol Sulfate (2.5 MG/3ML) 0.083% 03/24/2020 12:00:00 AM EDT 3.0 {ml_as_needed} active Albuterol Sulfate (2.5 MG/3ML) 0.083% eCW1 ([facility]) 200 ACTUAT Albuterol 0.09 MG/ACTUAT Mete red Dose Inhaler [Ventolin] Ventolin HFA 108 (90 Base) MCG/ACT Ventolin HFA 108 (90 Base) MCG/ACT 03/24/2020 12:00:00 AM EDT 1.0 {puff_as_needed} active Donovan tolin HFA 108 (90 Base) MCG/ACT eCW1 ([facility]) Acetaminophen 500 MG Oral Tablet Acetaminophen 500 MG 2019 12:00:00 AM EDT 1.0 {tablet_as_needed} active A cetaminophen 500 MG eCW1 ([facility]) alpha-Tocopherol Acetate 1 UNT/ML / Asco rbic Acid 20 MG/ML / Biotin 0.006 MG/ML / Cholecalciferol 20 UNT/ML / dexpanthenol 1.5 MG/ML / Folic Acid 0.06 MG/ML / Niacinamide 4 MG/ML / Pyridoxine Hydrochloride 0.6 MG/ML / retinyl palmitate 330 UNT/ML / Ribofl Infuvite Adult - Infuvite Adult - 03/24/2020 12:00:00 AM EDT active Infuvite Adult - eCW1 ([facility]) DiphenhydrAMINE HCl 50 MG/ML DiphenhydrAMINE HCl 50 MG/ML 12:00:00 AM EDT active DiphenhydrAMINE H Cl 50 MG/ML eCW1 ([facility]) Acetaminophen 500 MG Oral Tablet Acetaminophen 500 MG 2019 12:00:00 AM EDT 1.0 {tablet_as_needed} active A cetaminophen 500 MG eCW1 ([facility]) alpha-Tocopherol Acetate 1 UNT/ML / Asco rbic Acid 20 MG/ML / Biotin 0.006 MG/ML / Cholecalciferol 20 UNT/ML / dexpanthenol 1.5 MG/ML / Folic Acid 0.06 MG/ML / Niacinamide 4 MG/ML / Pyridoxine Hydrochloride 0.6 MG/ML / retinyl palmitate 330 UNT/ML / Ribofl Infuvite Adult - Infuvite Adult - 03/24/2020 12:00:00 AM EDT active Infuvite Adult - eCW1 ([facility]) 0.8 ML Enoxaparin sodium 100 MG/ML Prefi lled Syringe [Lovenox] Lovenox 80 MG/0.8ML Lovenox 80 MG/0.8ML 03/24/2020 12:00:00 AM EDT 0.7 {ml} active Lovenox 80 MG/0.8ML eCW1 ([facility]) Acetaminophen 500 MG Oral Tablet Acetaminophen 500 MG 2019 12:00:00 AM EDT 1.0 {tablet_as_needed} active A cetaminophen 500 MG eCW1 ([facility]) Heparin Lock Flush 100 UNIT/ML UNK 03/24/2020 12:00:00 AM EDT active Heparin Lock Flush 100 UNIT/ML eCW1 ([facility]) 1 ML Enoxaparin sodium 100 MG/ML Prefilled Syringe [Lo venox] Lovenox 100 MG/ML Lovenox 100 MG/ML 03/24/2020 12:00:00 AM EDT active Lovenox 100 MG/ML eCW1 ([facility]) DiphenhydrAMINE HCl 50 MG/ML DiphenhydrAMINE HCl 50 MG/ML 12:00:00 AM EDT active DiphenhydrAMINE H Cl 50 MG/ML eCW1 ([facility]) Heparin Lock Flush 100 UNIT/ML UNK 03/24/2020 12:00:00 AM EDT active Heparin Lock Flush 100 UNIT/ML eCW1 ([facility]) Acetaminophen 500 MG Oral Tablet Acetaminophen 500 MG 2019 12:00:00 AM EDT 1.0 {tablet_as_needed} active A cetaminophen 500 MG eCW1 ([facility]) alpha-Tocopherol Acetate 1 UNT/ML / Asco rbic Acid 20 MG/ML / Biotin 0.006 MG/ML / Cholecalciferol 20 UNT/ML / dexpanthenol 1.5 MG/ML / Folic Acid 0.06 MG/ML / Niacinamide 4 MG/ML / Pyridoxine Hydrochloride 0.6 MG/ML / retinyl palmitate 330 UNT/ML / Ribofl Infuvite Adult - Infuvite Adult - 03/24/2020 12:00:00 AM EDT active Infuvite Adult - eCW1 ([facility]) Albuterol 0.83 MG/ML Inhalant Solution Albuterol Sulfa te (2.5 MG/3ML) 0.083% Albuterol Sulfate (2.5 MG/3ML) 0.083% 03/24/2020 12:00:00 AM EDT 3.0 {ml_as_needed} active Albuterol Sulfate (2.5 MG/3ML) 0.083% eCW1 ([facility]) Diphenhydramine Hydrochloride 50 MG/ML I njectable Solution DiphenhydrAMINE HCl 50 MG/ML DiphenhydrAMINE HCl 50 MG/ML 03/24/2020 12:00:00 AM EDT active DiphenhydrAMINE HCl 50 MG/ML eCW 1 ([facility]) Diphenhydramine Hydrochloride 50 MG/ML I njectable Solution DiphenhydrAMINE HCl 50 MG/ML DiphenhydrAMINE HCl 50 MG/ML 03/24/2020 12:00:00 AM EDT active DiphenhydrAMINE HCl 50 MG/ML eCW 1 ([facility]) Albuterol 0.83 MG/ML Inhalant Solution Albuterol Sulfa te (2.5 MG/3ML) 0.083% Albuterol Sulfate (2.5 MG/3ML) 0.083% 03/24/2020 12:00:00 AM EDT 3.0 {ml_as_needed} active Albuterol Sulfate (2.5 MG/3ML) 0.083% eCW1 ([facility]) Heparin Lock Flush 100 UNIT/ML UNK 03/24/2020 12:00:00 AM EDT active Heparin Lock Flush 100 UNIT/ML eCW1 ([facility]) Acetaminophen 500 MG Oral Tablet Acetaminophen 500 MG 2019 12:00:00 AM EDT 1.0 {tablet_as_needed} active A cetaminophen 500 MG eCW1 ([facility]) Amylases 05787 UNT / Endopeptidases 9500 UNT / Lipase 3000 UNT Delayed Release Oral Capsule [Creon] Creon [id number] UNIT Creon 1854-8900 UNIT 03/24/2020 12:00:00 AM EDT active Creon 30 00-9500 UNIT eCW1 ([facility]) Acetaminophen 500 MG Oral Tablet Acetaminophen 500 MG 2019 12:00:00 AM EDT 1.0 {tablet_as_needed} active A cetaminophen 500 MG eCW1 ([facility]) Acetaminophen 500 MG Oral Tablet Acetaminophen 500 MG 2019 12:00:00 AM EDT 1.0 {tablet_as_needed} active A cetaminophen 500 MG eCW1 ([facility]) 0.8 ML Enoxaparin sodium 100 MG/ML Prefi lled Syringe [Lovenox] Lovenox 80 MG/0.8ML Lovenox 80 MG/0.8ML 03/24/2020 12:00:00 AM EDT 0.7 {ml} active Lovenox 80 MG/0.8ML eCW1 ([facility]) Relizorb Device [id number] 03/22/2020 12:00:00 AM EDT 1 { each} Does not apply completed Pancreatic insufficiency 1 each by Does not apply route once for 1 dose [facility] Pancreatic insufficiency Misc. 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 Devices (DURABLE MEDICAL EQUIPMENT SEE SIG) [place] [facility] [place] [id number] 03/15/2020 12:00:00 AM EDT act lucia Chronic narcotic useOn total parenteral nutrition (TPN)History of Nadege-en-Y gastric bypassAnticoagulatedDietary counseling and surveillanceBody mass index (BMI) 22.0-22.9, adultFunctional diarrheaStatus post bariatric surgeryJejunostomy tube site painFailure to thrive in adultAdult failure to thrive syndromeGastroparesis Use as directed. AMT mini on e 20 fr. 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 Devices (DURABLE MEDICAL EQUIPMENT SEE SIG) [place] [facility] [place] [id number] 03/02/2020 12:00:00 AM EDT act lucia Body mass index (BMI) 22.0-22.9, adultFunctional diarrheaStatus post bariatric surgeryJejunostomy tube site painFailure to thrive in adultAdult failure to thrive syndromeGastroparesis Use as directed. Enteral Feeds: Vital AF 1.2 calorie, 5 bottles per day(150/month). With 5 months of refills. 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 Devices (DURABLE MEDICAL EQUIPMENT SEE SIG) [place] [facility] [place] [id number] 02/17/2020 12:00:00 AM EDT active Use as directed. Enteral feeds: Vital AF 1.2 calorie , 5 bottles per day. (150 per month) [facility]ABLE MEDICAL EQUIPMENT SEE SIG) [place] [facility] [place] [id number] 02/10/2020 12:00:00 AM EDT active Use as directed. Zhane-Chaves button gastrostomy tube 6.5 cm length. [facility] Zolpidem tartrate 5 MG Oral Tablet Zolpidem Tartrate 5 MG Zolpidem Tartrate 5 MG 02/04/2020 12:00:00 AM EDT active 1 tablet at bedtime eCW1 ([facility]) Zolpidem tartrate 5 MG Oral Tablet Zolpidem Tartrate 5 MG Zolpidem Tartrate 5 MG 02/04/2020 12:00:00 AM EDT 1.0 {tablet_at_bedtime} active Zolpidem Tartrate 5 MG eCW1 ([facility]) Zolpidem tartrate 5 MG Oral Tablet Zolpidem Tartrate 5 MG Zolpidem Tartrate 5 MG 02/04/2020 12:00:00 AM EDT 1.0 {tablet_at_bedtime} active Zolpidem Tartrate 5 MG eCW1 ([facility]) Zolpidem tartrate 5 MG Oral Tablet Zolpidem Tartrate 5 MG Zolpidem Tartrate 5 MG 02/04/2020 12:00:00 AM EDT active 1 tablet at bedtime eCW1 ([facility]) Zolpidem tartrate 5 MG Oral Tablet Zolpidem Tartrate 5 MG Zolpidem Tartrate 5 MG 02/04/2020 12:00:00 AM EDT active 1 tablet at bedtime eCW1 ([facility]) Methadone Hydrochloride 5 MG Oral Tablet Methadone HCl 5 MG Oral Tablet (DOLOPHINE) Methadone HCl 5 MG Oral Tablet (DOLOPHINE) 01/28/2020 12:00:00 AM EDT active TAKE 1 T ABLET BY MOUTH TWICE DAILY . DO NOT EXCEED 2 PER 24 HOURS [facility] 0.8 ML Enoxaparin sodium 100 MG/ML Prefi lled Syringe Enoxaparin Sodium 80 MG/0.8ML Subcutaneous Solution (LOVENOX) Enoxaparin Sodium 80 MG/0.8ML Subcutaneous Solution (LOVENOX) 01/08/2020 12:00:00 AM EDT active [facility] 0.8 ML Enoxaparin sodium 100 MG/ML Prefi lled Syringe [Lovenox] Lovenox 80 MG/0.8ML Lovenox 80 MG/0.8ML 01/07/2020 12:00:00 AM EDT active 0.7 ml eCW1 ([facility]) 0.8 ML Enoxaparin sodium 100 MG/ML Prefi lled Syringe [Lovenox] Lovenox 80 MG/0.8ML Lovenox 80 MG/0.8ML 01/07/2020 12:00:00 AM EDT active 0.7 ml eCW1 ([facility]) 0.8 ML Enoxaparin sodium 100 MG/ML Prefi lled Syringe [Lovenox] Lovenox 80 MG/0.8ML Lovenox 80 MG/0.8ML 01/07/2020 12:00:00 AM EDT active 0.7 ml eCW1 ([facility]) 0.8 ML Enoxaparin sodium 100 MG/ML Prefi lled Syringe [Lovenox] Lovenox 80 MG/0.8ML Lovenox 80 MG/0.8ML 01/07/2020 12:00:00 AM EDT active 0.7 ml eCW1 ([facility]) Invanz 1 GM Invanz 1 GM 01/05/2020 12:00:00 AM EDT suspended as directed eCW1 ([facility]) Invanz 1 GM Invanz 1 GM 01/05/2020 12:00:00 AM EDT active as directed eCW1 ([facility]) Invanz 1 GM Invanz 1 GM 01/05/2020 12:00:00 AM EDT suspended as directed eCW1 ([facility]) Invanz 1 GM Invanz 1 GM 01/05/2020 12:00:00 AM EDT active as directed eCW1 ([facility]) Sodium Chloride 0.9 % Intravenous Solution [id number] 01/05/2020 12:00:00 AM EDT active [facility] Nystatin 462558 UNT/ML Topical Cream Nystatin 379658 U NIT/GM Nystatin 698831 UNIT/GM 01/04/2020 12:00:00 AM EDT active 1 application eCW1 ([facility]) Nystatin 764052 UNT/ML Topical Cream Nystatin 619708 U NIT/GM Nystatin 365773 UNIT/GM 01/04/2020 12:00:00 AM EDT 1.0 {application} active Nystatin 586568 UNIT/GM eCW1 ([facility]) Nystatin 213383 UNT/ML Topical Cream Nystatin 853764 U NIT/GM Nystatin 323050 UNIT/GM 01/04/2020 12:00:00 AM EDT suspended 1 application eCW1 ([facility]) Nystatin 473996 UNT/ML Topical Cream Nystatin 681769 U NIT/GM Nystatin 038644 UNIT/GM 01/04/2020 12:00:00 AM EDT active 1 application eCW1 ([facility]) Nystatin 041656 UNT/ML Topical Cream Nystatin 917371 U NIT/GM Nystatin 734710 UNIT/GM 01/04/2020 12:00:00 AM EDT 1.0 {application} active Nystatin 896323 UNIT/GM eCW1 ([facility]) Nystatin 631331 UNT/ML Topical Cream Nystatin 098487 U NIT/GM Nystatin 013334 UNIT/GM 01/04/2020 12:00:00 AM EDT 1.0 {application} active Nystatin 858432 UNIT/GM eCW1 ([facility]) Nystatin 802551 UNT/ML Topical Cream Nystatin 718086 U NIT/GM Nystatin 609691 UNIT/GM 01/04/2020 12:00:00 AM EDT 1.0 {application} active Nystatin 988457 UNIT/GM eCW1 ([facility]) Nystatin 385678 UNT/ML Topical Cream Nystatin 747964 U NIT/GM Nystatin 723777 UNIT/GM 01/04/2020 12:00:00 AM EDT 1.0 {application} active Nystatin 201933 UNIT/GM eCW1 ([facility]) Meropenem 1 GM Meropenem 1 GM 01/04/2020 12:00:00 AM EDT active as directed eCW1 ([facility]) Nystatin 663172 UNT/ML Topical Cream Nystatin 084071 U NIT/GM Nystatin 300473 UNIT/GM 01/04/2020 12:00:00 AM EDT 1.0 {application} active Nystatin 567015 UNIT/GM eCW1 ([facility]) Nystatin 883676 UNT/ML Topical Cream Nys tatin 573708 UNIT/GM External Cream (MYCOSTATIN) Nystatin 422614 UNIT/GM External Cream (MYCOSTATIN) 12:00:00 AM EDT active APPLY CR EAM TOPICALLY TWICE DAILY [facility] Nystatin 166707 UNT/ML Topical Cream Nystatin 342612 U NIT/GM Nystatin 566025 UNIT/GM 01/04/2020 12:00:00 AM EDT 1.0 {application} active Nystatin 527406 UNIT/GM eCW1 ([facility]) Nystatin 165978 UNT/ML Topical Cream Nystatin 865220 U NIT/GM Nystatin 278239 UNIT/GM 01/04/2020 12:00:00 AM EDT suspended 1 application eCW1 ([facility]) Nystatin 070929 UNT/ML Topical Cream Nystatin 118799 U NIT/GM Nystatin 256256 UNIT/GM 01/04/2020 12:00:00 AM EDT 1.0 {application} active Nystatin 735216 UNIT/GM eCW1 ([facility]) Glucagon 3 MG/DOSE UNK 11/24/2019 12:00:00 AM EST active Glucagon 3 MG/DOSE eCW1 ([facility]) Zolpidem tartrate 6.25 MG Extended Relea se Oral Tablet Zolpidem Tartrate ER 6.25 MG Zolpidem Tartrate ER 6.25 MG 11/24/2019 12:00:00 AM EST active 1 tablet eCW1 ([facility]) Glucagon 3 MG/DOSE UNK 11/24/2019 12:00:00 AM EST active as directed eCW1 ([facility]) Glucagon 3 MG/DOSE UNK 11/24/2019 12:00:00 AM EST active Glucagon 3 MG/DOSE eCW1 ([facility]) Glucagon 3 MG/DOSE UNK 11/24/2019 12:00:00 AM EST active Glucagon 3 MG/DOSE eCW1 ([facility]) Zolpidem tartrate 6.25 MG Extended Relea se Oral Tablet Zolpidem Tartrate ER 6.25 MG Zolpidem Tartrate ER 6.25 MG 11/24/2019 12:00:00 AM EST active 1 tablet at bedtime as needed eCW1 ([facility]) Glucagon 3 MG/DOSE UNK 11/24/2019 12:00:00 AM EST active Glucagon 3 MG/DOSE eCW1 ([facility]) Glucagon 3 MG/DOSE UNK 11/24/2019 12:00:00 AM EST active Glucagon 3 MG/DOSE eCW1 ([facility]) Glucagon 3 MG/DOSE UNK 11/24/2019 12:00:00 AM EST active as directed eCW1 ([facility]) Glucagon 3 MG/DOSE UNK 11/24/2019 12:00:00 AM EST active Glucagon 3 MG/DOSE eCW1 ([facility]) Glucagon 3 MG/DOSE UNK 11/24/2019 12:00:00 AM EST active Glucagon 3 MG/DOSE eCW1 ([facility]) Zolpidem tartrate 6.25 MG Extended Relea se Oral Tablet Zolpidem Tartrate ER 6.25 MG Zolpidem Tartrate ER 6.25 MG 11/24/2019 12:00:00 AM EST active 1 tablet eCW1 ([facility]) Glucagon 3 MG/DOSE UNK 11/24/2019 12:00:00 AM EST active Glucagon 3 MG/DOSE eCW1 ([facility]) Glucagon 3 MG/DOSE UNK 11/24/2019 12:00:00 AM EST active Glucagon 3 MG/DOSE eCW1 ([facility]) Glucagon 3 MG/DOSE UNK 11/24/2019 12:00:00 AM EST active Glucagon 3 MG/DOSE eCW1 ([facility]) Glucagon 3 MG/DOSE UNK 11/24/2019 12:00:00 AM EST active Glucagon 3 MG/DOSE eCW1 ([facility]) Zolpidem tartrate 6.25 MG Extended Relea se Oral Tablet Zolpidem Tartrate ER 6.25 MG Zolpidem Tartrate ER 6.25 MG 11/24/2019 12:00:00 AM EST active 1 tablet at bedtime as needed eCW1 ([facility]) Glucagon 3 MG/DOSE UNK 11/24/2019 12:00:00 AM EST active as directed eCW1 ([facility]) Glucagon 3 MG/DOSE UNK 11/24/2019 12:00:00 AM EST active as directed eCW1 ([facility]) Glucagon 3 MG/DOSE UNK 11/24/2019 12:00:00 AM EST active Glucagon 3 MG/DOSE eCW1 ([facility]) Glucagon 3 MG/DOSE UNK 11/24/2019 12:00:00 AM EST active Glucagon 3 MG/DOSE eCW1 ([facility]) Glucagon 3 MG/DOSE UNK 11/24/2019 12:00:00 AM EST active Glucagon 3 MG/DOSE eCW1 ([facility]) Zolpidem tartrate 6.25 MG Extended Relea se Oral Tablet Zolpidem Tartrate ER 6.25 MG Zolpidem Tartrate ER 6.25 MG 11/24/2019 12:00:00 AM EST active 1 tablet at bedtime as needed eCW1 ([facility]) Zolpidem tartrate 6.25 MG Extended Relea se Oral Tablet Zolpidem Tartrate ER 6.25 MG Zolpidem Tartrate ER 6.25 MG 11/24/2019 12:00:00 AM EST active 1 tablet at bedtime as needed eCW1 ([facility]) Glucagon 3 MG/DOSE UNK 11/24/2019 12:00:00 AM EST active Glucagon 3 MG/DOSE eCW1 ([facility]) Glucagon 3 MG/DOSE UNK 11/24/2019 12:00:00 AM EST active Glucagon 3 MG/DOSE eCW1 ([facility]) Glucagon 3 MG/DOSE UNK 11/24/2019 12:00:00 AM EST active as directed eCW1 ([facility]) diphenhydrAMINE HCl 50 MG/ML Injection Solution (BENADRYL) 6 [id number] 11/13/2019 12:00:00 AM EST 50 mg Given by IV active 50 mg by Given by IV route nightly [facility]. Devices (DURABLE MEDICAL EQUIPMENT SEE SIG) [place] [facility] [place] [id number] 11/10/2019 12:00:00 AM EST abo rted Jejunostomy tube presentChronic narcotic useOn total parenteral nutrition (TPN)History of Nadege-en-Y gastric bypassAnticoagulatedDietary counseling and surveillanceBody mass index (BMI) 22.0-22.9, adultFunctional diarrheaFailure to thrive in adultStatus post bariatric surgery Use as directed. Please draw the following labs weekly: CMP, Mg, Phos, CBC and diff, prealbumin. And a monthly triglyceride. Thank you. [facility] Jejunostomy tube present Chronic narcotic use On [...] Starting Sat11/02/19 at 1239, For 30 days [facility] Medication administered onsite alteplase (CATHFLO) injection 2 mg [id number] 11/02/2019 09:00:00 AM EST 2 mg Intracatheter completed 2 mg, Intra catheter, Once, Sat11/02/19 at 0900, For 1 dose
To be instilled by PICC team or IR nurse only for at least 30 minutesTo affected port
[facility] Medication administered onsite 1 ML heparin sodium, [...] units/mL. Reference Policy C-34 Central Line Policy.
[facility] Medication administered onsite sodium chloride (preservative free) 0.9 % flush 10 mL [id number] 11/02/2019 09:00:00 AM EST 10 mL Intravenous active 10 mL, Intravenous, Every 12 hours, First dose on Sat11/02/19 at 0900, For 30 days
WHEN NOT IN USE - Verify blood return before use. Flush with 10 mL of Sodium Chloride 0.9 % and 2 mL Heparin 10 units/mL. Reference Policy C-34H Central Line Policy.
[facility] Medication administered onsite sodium chloride (preservative free) 0.9 % flush 10 mL [id number] 186-11/02/2019 08:45:14 AM EST 10 mL Intravenous active 10 mL, Intravenous, PRN, Line Care, Starting 11/02/19 at 0845, For 30 days
Verify blood return before use. Flush with 10 mL of Sodium Chloride 0.9 % before and after infusions or blood sampling followed-by 2 mL Heparin 10 units/mL to lock. Reference Policy C-34 Central Line Policy.
[facility] Medication administered onsite 1 ML heparin sodium, [...] lock. Reference Policy C-34 Central Line Policy.
[facility] Medication administered onsite Loperamide Hydrochloride 2 MG Oral Capsu le Loperamide HCl 2 MG Oral Capsule (IMODIUM) Loperamide HCl 2 MG Oral Capsule (IMODIUM) 11/02/2019 12:00: 00 AM EST 2 mg Oral active Take 1 capsule b y mouth Four times daily as needed for Diarrhea [facility] pantoprazole 40 MG Delayed Release Oral Tablet Pantoprazole Sodium 40 MG Oral Tablet Delayed Release (PROTONIX) Pantoprazole Sodium 40 MG Oral Tablet De layed Release (PROTONIX) 11/02/2019 12:00:00 AM EST 40 mg Oral active Take 1 tablet by mouth Two Times Daily [facility] sodium chloride 0.9 % SOLN 50 mL with ertapenem 1 g SOLR 1,0 00 mg 11/02/2019 12:00:00 AM EST 1000 mg Intravenous active Inject 1,000 mg into the vein every 24 (twenty-four) hours [facility] Dicyclomine Hydrochloride 10 MG Oral Cap nuvia Dicyclomine HCl 10 MG Oral Capsule (BENTYL) Dicyclomine HCl 10 MG Oral Capsule (BENTYL) 11/02/2019 12:00 :00 AM EST 10 mg Oral active Take 1 capsule b y mouth Four times daily [facility] alpha-Tocopherol Acetate 1 UNT/ML / Asco [...] Inject 1 mL into the vein daily [facility] Ondansetron 2 MG/ML Injectable Solution Ondansetron HCl 40 MG/20ML Injection Solution (ZOFRAN) Ondansetron HCl 40 MG/20ML Injection Solution (ZOFRAN) 11/02/2019 12:00:00 AM EST 1 mL Intravenous active Inject 1 mL into the vein daily [facility] pantoprazole 4 MG/ML Injectable Solution Pantoprazole Sodium 40 MG Intravenous Solution Reconstituted (PROTONIX) Pantoprazole Sodium 40 MG Intravenous So lution Reconstituted (PROTONIX) 11/02/2019 12:00:00 AM EST 40 mg Intrave nous active Inject 40 mg into the vein daily [facility] TPN adult 11/01/2019 07:00:00 PM EST Intravenous [...] 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
Is patient on propofol (= 1 fat kcal/ml)? No
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
Is patient on propofol (= 1 fat kcal/ml)? No
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 [facility] Medication administered onsite Amylases 01558 UNT / Endopeptidases 1900 0 UNT / Lipase 6000 UNT Delayed Release Oral Capsule pancrelipase (Ddn-Aywo-Zkwd) (CREON) capsule 12,000 units of lipase pancrelipase (Xby-Yxiy-Aldl) (CREON) capsule 12,000 un its of lipase 10/30/2019 05:00:00 PM EST Oral active 12,000 units of lipase, Oral, Three Times Daily-With Meals, First dose on Sat10/30/19 at 1700, For 30 days [facility] Medication administered onsite Calcium Chloride 0.001 MEQ/ML / Glucose 50 MG/ML / Potassium Chloride 0.004 MEQ/ML / Sodium Chloride 0.103 MEQ/ML / Sodium Lactate 0.028 MEQ/ML Injectable Solution dextrose 5 % in lactated ringers infusion dextrose 5 % in lactated ringers infusion 10/30/2019 01:30:00 PM EST Intravenous completed at 100 mL/hr, Intravenous, Continuous, Starting Sat10/30/19 at 1330, For 5 hours [facility] Medication administered onsite Oxycodone Hydrochloride 5 MG [...] only) require Pain Service consultation and approval.
[facility] Medication administered onsite Dicyclomine Hydrochloride 10 MG Oral Capsule dicyclomi ne (BENTYL) capsule 10 mg dicyclomine (BENTYL) capsule 10 mg 10/30/2019 01:00:00 PM EST 10 mg Oral active 10 mg, Oral, Four T imes Daily Standard, First dose on Sat10/30/19 at 1300, For 30 days [facility] Medication administered onsite ertapenem (INVANZ) 1,000 mg in sodium chloride 0.9 % 50 mL I VPB 10/29/2019 04:00:00 PM EST 1000 mg Intravenous active 1,000 mg, Intravenous, Administer over 30 Minutes, Every 24 hours, First dose on Sat10/29/19 at 1600, For 10 days [facility] Medication administered onsite Calcium Chloride 0.001 MEQ/ML / Glucose 50 MG/ML / Potassium Chloride 0.004 MEQ/ML / Sodium Chloride 0.103 MEQ/ML / Sodium Lactate 0.028 MEQ/ML Injectable Solution dextrose 5 % in lactated ringers infusion dextrose 5 % in lactated ringers infusion 10/28/2019 11:15:00 PM EST Intravenous aborted at 100 mL/hr, Intravenous, Continuous, Starting Sat10/28/19 at 2315, For 15 days [facility] Medication administered onsite meropenem (MERREM) IVPB 500 mg/50 mL (premix) [id number] 10/28/2019 07:00:00 PM EST 500 mg Intravenous aborted 500 mg, Intravenous, at 100 mL/hr, Every 6 hours, First dose on Sat10/28/19 at 1900, For 7 days
Discouraged Uses: Patients receiving valproic acid derivatives for seizure disorder should not receive meropenem without modification to the antiepileptic regimen
[facility] Medication administered onsite vancomycin (VANCOCIN) 750 mg in D5W 150 mL (premix) 0338-358 [id number] 10/28/2019 06:00:00 PM EST 750 mg Intravenous aborted 750 mg, Intravenous, Administer over 60 Minutes, Every 8 hours, First dose on Sat10/28/19 at 1800, For 3 days [facility] Medication administered onsite Calcium Chloride 0.001 MEQ/ML / Glucose 50 MG/ML / Potassium Chloride 0.004 MEQ/ML / Sodium Chloride 0.103 MEQ/ML / Sodium Lactate 0.028 MEQ/ML Injectable Solution dextrose 5 % in lactated ringers infusion dextrose 5 % in lactated ringers infusion 10/28/2019 03:45:00 PM EST Intravenous aborted at 100 mL/hr, Intravenous, Continuous, Starting Sat10/28/19 at 1545, For 15 hours [facility] Medication administered onsite sodium chloride 0.9 % bolus 1,000 mL [id number] 10/28/2019 03:45: 00 PM EST 1000 mL Intravenous active 1,000 mL , Intravenous, Once, Sat10/28/19 at 1545, For 1 dose [facility] Medication administered onsite NaCl infusion 0.9 % [id number] 10/28/2019 02:00:00 PM EST Intravenous aborted at 100 mL/hr, Intrav enous, Continuous, Starting Sat10/28/19 at 1400, For 30 days [facility] Medication administered onsite potassium chloride 10 mEq in 50 mL IVPB (premix) [id number] 1 10/28/2019 11:00:00 AM EST 10 meq Intravenous completed 10 mEq, Intravenous, Once, Sat10/28/19 at 1100, For 1 dose [facility] Medication administered onsite diazePAM (VALIUM) injection 5 mg [id number] 10/28/2019 10:45:00 AM EST 5 mg Intravenous completed 5 mg, Intrave nous, Once, Sat10/28/19 at 1045, For 1 dose [facility] Medication administered onsite Fluoxetine 20 MG Oral Capsule fluoxetine (PROZAC) caps ule 20 mg fluoxetine (PROZAC) capsule 20 mg 10/28/2019 09:00:00 AM EST 20 mg Oral active 20 mg, Oral, Daily Standard, First dose on Sat10/28/19 at 0900, For 30 days [facility] Medication administered onsite multivitamin with minerals (BARIATRIC FUSION) chewable tablet 2 tablet [id number] 10/28/2019 09:00:00 AM EST 2 {tbl} Oral abort ed 2 tablet, Oral, 2 Times Daily With Meals, First dose on Sat10/28/19 at 0900, For 30 days [facility] Medication administered onsite vancomycin (VANCOCIN) in D5W infusion 1,000 mg/200 mL (premi x) [id number] 10/28/2019 09:00:00 AM EST 1000 mg Intravenous completed 1,000 mg, Intravenous, Administer over 60 Minutes, Once, Sat10/28/19 at 0900, For 1 dose [facility] Medication administered onsite sodium chloride 0.9 % bolus 1,000 mL [id number] 10/28/2019 08:15: 00 AM EST 1000 mL Intravenous completed 1,000 mL , Intravenous, Once, Sat10/28/19 at 0815, For 1 dose [facility] Medication administered onsite Amylases 54570 UNT / Endopeptidases 9500 UNT / Lipase 3000 UNT Delayed Release Oral Capsule pancrelipase (Nwv-Qefb-Zzws) (CREON) 4150-3761 units capsule 3,000 units of lipase pancrelipase (Qnt-Ibiy-Aoil) (CREON) 300 0-9500 units capsule 3,000 units of lipase 10/28/2019 07:30:00 AM EST 1 {capsule} Oral aborted 3,000 units of lipase (1 cap nuvia), Oral, Before Meals - Three Times Daily, First dose on Sat10/28/19 at 0730, For 30 days
Patient's own medication being used for this order
[facility] Medication administered onsite iohexol (OMNIPAQUE) 300 MG/ML contrast injection 100 mL [id number] 10/28/2019 04:00:00 AM EST 100 mL Given by IV completed 100 mL, Given by IV, 1 TIME IMAGING, Sat10/28/19 at 0400, For 1 dose [facility] Medication administered onsite morphine sulfate (PF) injection 2 mg [id number] 10/28/2019 12:00: 00 AM EST 2 mg Intravenous completed 2 mg, In travenous, Once, Sat10/28/19 at 0000, For 1 dose [facility] Medication administered onsite iohexol (OMNIPAQUE) 240 MG/ML contrast 20 mL [id number] 04/2020 11:50:48 PM EST 20 mL Oral completed 20 mL, Oral, O nce PRN, Contrast, Per Protocol, Starting Sat10/27/19 at 2350, For [address] to tell RN administration time of first dose.For oral use Dilute in 500 mL liquid x1 Now per protocol. Use "Contrast dose chart" link for dosing guidelines.
[facility] Medication administered onsite iohexol (OMNIPAQUE) 240 MG/ML contrast 20 mL [id number] 04/2020 11:50:48 PM EST 20 mL Oral completed 20 mL, Oral, P RN, Contrast, Per Protocol, Starting Sat10/27/19 at 2350, For [address] Scanner prior. director of diagnostic imaging to CT.For oral use Dilute in 500 mL liquid x1 health care liaison to CT scan - per protocol. Use "Contrast dose chart" link for dosing guidelines.
[facility] Medication administered onsite Piperacillin 3000 MG / tazobactam 375 MG Injection piperacillin-tazobactam (ZOSYN) IVPB 3.375 g (premix) piperacillin-tazobactam (ZOSYN) IVPB 3.3 75 g (premix) 10/27/2019 11:30:00 PM EST 3.375 g Intravenous abo rted 3.375 g, Intravenous, Administer over 4 Hours, Every 8 hours, First dose on Sat10/27/19 at 2330, For 3 days [facility] Medication administered onsite Misoprostol 0.2 MG Oral Tablet misoprostol (CYTOTEC) t ablet 200 mcg misoprostol (CYTOTEC) tablet 200 mcg 10/27/2019 10:00:00 PM EST 200 ug Oral active 200 mcg, Oral, Every 6 hours, First dose on Sat at 2200, For 30 days [facility] Medication administered onsite morphine sulfate (PF) injection 2 mg [id number] 10/27/2019 09:47: 21 PM EST 2 mg Intravenous aborted 2 mg, In travenous, Every 4 hours PRN, Severe Pain (Pain Scale Score 7-10), Starting Sat10/27/19 at 2147, For 3 days [facility] Medication administered onsite gabapentin 100 MG Oral Capsule gabapentin (NEURONTIN) capsule 100 mg gabapentin (NEURONTIN) capsule 100 mg 10/27/2019 09:00:00 PM EST 100 mg Oral active 100 mg, Oral, Three Times D aily Standard, First dose on Sat10/27/19 at 2100, For 30 days [facility] Medication administered onsite pantoprazole 4 MG/ML Injectable Solution pantoprazole (PROTONIX) injection 40 mg pantoprazole (PROTONIX) injection 40 mg 10/27/2019 09:00:00 PM EST 40 mg Intravenous active 40 mg, Intrav enous, 2 Times Daily, First dose on Sat10/27/19 at 2100, For 30 days
Dilute with 10 mL of 0.9% NaCl.Give IVP over 2 minutes. Flush before and after.
[facility] Medication administered onsite Sucralfate 100 MG/ML Oral Suspension suc ralfate (CARAFATE) 1 GM/10ML suspension 1 g sucralfate (CARAFATE) 1 GM/10ML suspension 1 g 10/27/2019 09:00: 00 PM EST 1 g Oral active 1 g, Oral, Before Meals & Nightly - Four Times Daily, First dose on Sat10/27/19 at 2100, For 30 days [facility] Medication administered onsite Acetaminophen 325 MG Oral [...] mg from all sources in 24 hours.
[facility] Medication administered onsite Calcium Chloride 0.001 MEQ/ML / Glucose 50 MG/ML / Potassium Chloride 0.004 MEQ/ML / Sodium Chloride 0.103 MEQ/ML / Sodium Lactate 0.028 MEQ/ML Injectable Solution dextrose 5 % in lactated ringers infusion dextrose 5 % in lactated ringers infusion 10/27/2019 08:45:00 PM EST Intravenous completed at 100 mL/hr, Intravenous, Continuous, Starting Sat10/27/19 at 2044, For 15 hours [facility] Medication administered onsite Zolpidem tartrate 5 MG Oral Tablet zolpidem (AMBIEN) t ablet 5 mg zolpidem (AMBIEN) tablet 5 mg 10/27/2019 08:43:33 PM EST 5 mg Oral active 5 mg, Oral, Nightly PRN, Sleep, Starting Sat10/27/19 at 2042, For 7 days [facility] Medication administered onsite Loperamide Hydrochloride 2 MG Oral Capsule loperamide (IMODIUM) capsule 2 mg loperamide (IMODIUM) capsule 2 mg 10/27/2019 08:41:30 PM EST 2 mg Oral active 2 mg, Oral, Four Ti mes Daily-PRN, Diarrhea, Starting Sat10/27/19 at 2040, For 14 days [facility] Medication administered onsite Hydroxyzine Hydrochloride 50 MG Oral Tablet hydrOXYzin e (ATARAX) tablet 25 mg hydrOXYzine (ATARAX) tablet 25 mg 10/27/2019 08:41:24 PM EST 25 mg Oral active 25 mg, Oral, Every 6 hours PRN, Itching, Anxiety, Starting Sat10/27/19 at 2040, For 30 days [facility] Medication administered onsite albuterol (PROVENTIL HFA;VENTOLIN HFA) inhaler 2 puff [id number] 10/27/2019 08:40:44 PM EST 2 {puff} Inhalation active 2 pu ff, Inhalation, Every 6 hours PRN, Wheezing, Shortness of Breath, Starting Sat10/27/19 at 2039, For 7 days 13 hours
Shake the inhaler well before each spray.
[facility] Medication administered onsite diphenhydrAMINE (BENADRYL) injection 50 mg [id number] 10/27/2019 08:35:37 PM EST 50 mg Intravenous active 50 m g, Intravenous, Every 6 hours PRN, Itching, Nausea, Starting Sat10/27/19 at 2034, For 30 days [facility] Medication administered onsite ondansetron (ZOFRAN) injection 4 mg [id number] 10/27/2019 08:35:2 9 PM EST 4 mg Intravenous active 4 mg, In travenous, Every 8 hours PRN, Nausea, Vomiting, Starting Sat10/27/19 at 2034, For 30 days [facility] Medication administered onsite sodium chloride 0.9 % bolus 1,000 mL [id number] 10/27/2019 08:00: 00 PM EST 1000 mL Intravenous completed 1,000 mL , Intravenous, Once, Sat10/27/19 at 1999, For 1 dose [facility] Medication administered onsite Doxycycline Monohydrate 5 MG/ML Oral [facility] pension Doxycycline Monohydrate 25 MG/5ML Doxycycline Monohydrate 25 MG/5ML 10/16/2019 12:00:00 AM EST active 20 ml eCW1 ([facility]) Calcium Chloride 0.0014 MEQ/ML / Potassi um Chloride 0.004 MEQ/ML / Sodium Chloride 0.103 MEQ/ML / Sodium Lactate 0.028 MEQ/ML Injectable Solution lactated ringers infusion lactated ringers infusion 10/05/2019 04:15:00 PM EST 1000 mL Intravenous active Dehydration at 1,0 00 mL/hr, Intravenous, Continuous, Starting Sat10/05/19 at 1615, For 22 hours
Total of 2000 cc (infused over 2 hours)/ rate is 1000 cc/hr
[facility] Dehydration Medication administered onsite 1 ML heparin sodium, porcine 10 UNT/ML I njection heparin lock flush 10 UNIT/ML injection 30 Units heparin lock flush 10 UNIT/ML injection 30 Units 10/05 04:11:51 PM EST 30 U Intracatheter active Dehydratio n 30 Units, Intracatheter, PRN, Line Care, Flush [place] after use today- port color is red, Starting Sat10/05/19 at 1611, For 1 day [facility] Dehydration Medication administered onsite Calcium Chloride 0.0014 MEQ/ML / Potassi um Chloride 0.004 MEQ/ML / Sodium Chloride 0.103 MEQ/ML / Sodium Lactate 0.028 MEQ/ML Injectable Solution lactated ringers infusion lactated ringers infusion 10/05/2019 02:45:00 PM EST 1000 mL/h Intravenous aborted Dehydration at 1,0 00 mL/hr, Intravenous, Continuous, Starting Sat10/05/19 at 1445, For 1 day
Total of 2000 cc (infused over 2 hours)
[facility] Dehydration Medication administered onsite Promethazine Hydrochloride 25 [...] 15 minutes. Do NOT give IV push.
[facility] Medication administered onsite lactated ringers bolus 2,000 mL [id number] 10/05/2019 02:30:00 PM EST 2000 mL Intravenous aborted [facility] pantoprazole 4 MG/ML Injectable Solution pantoprazole (PROTONIX) injection 40 mg pantoprazole (PROTONIX) injection 40 mg 10/05/2019 02:30:00 PM EST 40 mg Intravenous completed 40 mg, Intrav enous, Once, Sat10/05/19 at 1430, For 1 dose
Dilute with 10 mL of 0.9% NaCl.Give IVP over 2 minutes. Flush before and after.
[facility] Medication administered onsite ondansetron (ZOFRAN) injection 4 mg [id number] 10/05/2019 02:30:0 0 PM EST 4 mg Intravenous completed 4 mg, In travenous, Once, Sat10/05/19 at 1430, For 1 dose [facility] Medication administered onsite Amylases 16765 UNT / Endopeptidases 9500 UNT / Lipase 3000 UNT Delayed Release Oral Capsule Pancrelipase (Ngo-Dxot-Vvoj) 3545-0279 UNIT Oral Capsule Delayed Release Particles (CREON) Pancrelipase (Ftx-Dwrv-Hzlx) 6809-6848 U NIT Oral Capsule Delayed Release Particles (CREON) 10/05/2019 12:00:00 AM EST Oral aborted Take 1 capsule by mouth Thre e times daily before meals [facility] Atropine Sulfate 0.025 MG / Diphenoxylat e Hydrochloride 2.5 MG Oral Tablet Diphenoxylate-Atropine 2.5-0.025 MG Oral Tablet (LOMOTIL) Diphenoxylate-Atropine 2.5-0.025 MG Oral Tablet (LOMOTIL) 10/05/2019 12:00:00 AM EST 1 {tbl } Oral aborted Take 1 tablet by mouth Four times daily as needed for Diarrhea, Max Daily Dose: 4 tablets [facility] Amylases 51345 UNT / Endopeptidases 9500 UNT / Lipase 3000 UNT Delayed Release Oral Capsule Pancrelipase (Pze-Uxrr-Knlc) 0243-2465 UNIT Oral Capsule Delayed Release Particles (CREON) Pancrelipase (Gfx-Lopr-Swqb) 1720-6119 U NIT Oral Capsule Delayed Release Particles (CREON) 10/05/2019 12:00:00 AM EST Oral aborted Take 1 capsule by mouth Thre e times daily before meals [facility] Ondansetron 4 MG Disintegrating Oral Tab let Ondansetron 4 MG Oral Tablet Disintegrating (ZOFRAN-ODT) Ondansetron 4 MG Oral Tablet Disintegrat ing (ZOFRAN-ODT) 10/02/2019 12:00:00 AM EST 4 mg Oral activ e Nausea Take 1 tablet by mouth every 8 (eight) hours as needed for Nausea [facility] Nausea Loperamide Hydrochloride 2 MG Oral Capsu le Loperamide HCl 2 MG Oral Capsule (IMODIUM) Loperamide HCl 2 MG Oral Capsule (IMODIUM) 10/01/2019 12:00: 00 AM EST 2 mg Oral aborted Take 1 capsule b y mouth Four times daily as needed for Diarrhea [facility] pantoprazole 40 MG Delayed Release Oral Tablet Pantoprazole Sodium 40 MG Oral Tablet Delayed Release (PROTONIX) Pantoprazole Sodium 40 MG Oral Tablet De layed Release (PROTONIX) 10/01/2019 12:00:00 AM EST 40 mg Oral aborted Take 1 tablet by mouth Two Times Daily [facility] Misoprostol 0.2 MG Oral Tablet miSOPROStol 200 MCG Ora l Tablet (CYTOTEC) miSOPROStol 200 MCG Oral Tablet (CYTOTEC) 10/01/2019 12:00:00 AM EST 200 ug Oral active Take 1 tablet by mackenzie th every 6 (six) hours [facility] Oxycodone Hydrochloride 5 MG Oral Tablet oxyCODONE [...] only) require Pain Service consultation and approval.
[facility] Medication administered onsite Oxycodone Hydrochloride 5 MG [...] only) require Pain Service consultation and approval.
[facility] Medication administered onsite Loperamide Hydrochloride 2 MG Oral Capsule loperamide (IMODIUM) capsule 2 mg loperamide (IMODIUM) capsule 2 mg 09/30/2019 01:47:41 PM EST 2 mg Oral active 2 mg, Oral, Three T imes Daily-PRN, Diarrhea, Starting Sat09/30/19 at 1347, For 14 days [facility] Medication administered onsite pantoprazole 40 MG Delayed Release Oral Tablet pantoprazole (PROTONIX) EC tablet 40 mg pantoprazole (PROTONIX) EC tablet 40 mg 09/29/2019 09:00:[address] 40 mg Oral active 40 mg, Ora l, 2 Times Daily, First dose on Sat09/29/19 at 2100, For 30 days
Do not crush or chew
[facility] Medication administered onsite Zolpidem tartrate 5 MG Oral Tablet zolpidem (AMBIEN) t ablet 5 mg zolpidem (AMBIEN) tablet 5 mg 09/29/2019 07:56:00 PM EST 5 mg Oral active 5 mg, Oral, Nightly PRN, Sleep, Starting Sat09/29/19 at 1956, For 3 days [facility] Medication administered onsite trace elements [id number]-zn 1 mL, MVI adult 10 mL in amino acid 4.25 % with electrolytes in dextrose 5 % with calcium (CLINIMIX E 4.25/5) 2,000 mL TPN infusion 09/29/2019 07:00:00 PM EST Intravenous ab orted at 83 mL/hr, Intravenous, Daily at 1900, First dose (after last reorder) on Sat09/29/19 at 1900, For 1 day [facility] Medication administered onsite Misoprostol 0.2 MG Oral Tablet misoprostol (CYTOTEC) t ablet 200 mcg misoprostol (CYTOTEC) tablet 200 mcg 09/29/2019 12:00:00 PM EST 200 ug Oral active 200 mcg, Oral, Every 6 hours Standard (4 times per day), First dose on Sat09/29/19 at 1200, For 30 days [facility] Medication administered onsite Sucralfate 100 MG/ML Oral Suspension suc ralfate (CARAFATE) 1 GM/10ML suspension 1 g sucralfate (CARAFATE) 1 GM/10ML suspension 1 g 09/29/2019 12:00: 00 PM EST 1 g Oral active 1 g, Oral, Every 6 hours Standard (4 times per day), First dose on Sat09/29/19 at 1200, For 30 days [facility] Medication administered onsite NaCl infusion 0.9 % [id number] 09/29/2019 09:45:00 AM EST Intravenous aborted at 75 mL/hr, Intrave nous, Continuous, Starting Sat09/29/19 at 0945, For 30 days [facility] Medication administered onsite tramadol hydrochloride 50 MG Oral Tablet tramadol (ULT GRACE) tablet 50 mg tramadol (ULTRAM) tablet 50 mg 09/29/2019 09:43:51 AM EST 50 mg Oral active 50 mg, Oral, Every 6 hours PRN, Moderate Pain (Pain Scale Score 4-6), Starting Sat09/29/19 at 0943, For 3 days [facility] Medication administered onsite trace elements [id number] 1 mL, MVI adult 10 mL in amino acid 4.25 % with electrolytes in dextrose 5 % with calcium (CLINIMIX E 4.25/5) 2,000 mL TPN infusion 09/28/2019 07:00:00 PM EST Intravenous co mpleted at 83 mL/hr, Intravenous, Daily at 1900, First dose on Sat09/28/19 at 1900, For 1 day [facility] Medication administered onsite ondansetron (ZOFRAN) injection 4 mg [id number] 09/28/2019 12:00:0 0 PM EST 4 mg Intravenous active 4 mg, In travenous, Every 6 hours, First dose (after last modification) on Sat09/28/19 at 1200, For 8 days [facility] Medication administered onsite trimethobenzamide (TIGAN) injection 200 mg [id number] 09/28/2019 09:54:05 AM EST 200 mg Intramuscular active 200 mg , Intramuscular, Every 6 hours PRN, Nausea, Vomiting, Starting Sat09/28/19 at 0954, For 30 days [facility] Medication administered onsite Promethazine Hydrochloride 25 MG/ML [...] 15 minutes. Do NOT give IV push.
[facility] Medication administered onsite Fluoxetine 20 MG Oral Capsule fluoxetine (PROZAC) caps ule 20 mg fluoxetine (PROZAC) capsule 20 mg 09/28/2019 09:00:00 AM EST 20 mg Oral active 20 mg, Oral, Daily Standard, First dose on Sat09/28/19 at 0900, For 30 days [facility] Medication administered onsite Acetaminophen 10 MG/ML Injectable Soluti on acetaminophen (OFIRMEV) infusion 1,000 mg acetaminophen (OFIRMEV) infusion 1,000 mg 09/28/2019 08:00:00 AM EST 1000 mg Intravenous completed 1,000 mg , Intravenous, Every 8 hours, First dose on Sat09/28/19 at 0800, For 1 day
Maximum daily dose of acetaminophen is 3,000 mg from all sources in 24 hours.
[facility] Medication administered onsite Calcium Chloride 0.0014 MEQ/ML / Potassi um Chloride 0.004 MEQ/ML / Sodium Chloride 0.103 MEQ/ML / Sodium Lactate 0.028 MEQ/ML Injectable Solution lactated ringers infusion lactated ringers infusion 09/28/2019 01:15:00 AM EST 100 mL/h Intravenous aborted at 100 m L/hr, Intravenous, Continuous, Starting Sat09/28/19 at 0115, For 30 days [facility] Medication administered onsite 2 ML Metoclopramide 5 MG/ML Prefilled Sy ringe metoclopramide (REGLAN) injection 10 mg metoclopramide (REGLAN) injection 10 mg 09/27/2019 10:30:[address] 10 mg Intravenous active 10 mg, I ntravenous, Every 6 hours, First dose on 09/27/19 at 2230, For 30 days [facility] Medication administered onsite Acetaminophen 10 MG/ML Injectable Soluti on acetaminophen (OFIRMEV) infusion 1,000 mg acetaminophen (OFIRMEV) infusion 1,000 mg 09/27/2019 10:15:00 PM EST 1000 mg Intravenous completed 1,000 mg , Intravenous, Once, 09/27/19 at 2215, For 1 dose
Maximum daily dose of acetaminophen is 3,000 mg from all sources in 24 hours.
Recovery [facility] Medication administered onsite Promethazine Hydrochloride 25 MG/ML [...] 15 minutes. Do NOT give IV push.
[facility] Medication administered onsite gabapentin 100 MG Oral Capsule gabapentin (NEURONTIN) capsule 100 mg gabapentin (NEURONTIN) capsule 100 mg 09/27/2019 09:00:00 PM EST 100 mg Oral active 100 mg, Oral, Three Times D aily Standard, First dose on 09/27/19 at 2100, For 30 days [facility] Medication administered onsite morphine sulfate (PF) injection 2 mg [id number] 09/27/2019 07:23: 27 PM EST 2 mg Intravenous active 2 mg, In travenous, Every 4 hours PRN, Moderate Pain (Pain Scale Score 4-6), Severe Pain (Pain Scale Score 7-10), Starting 09/27/19 at 1923, For 5 days 15 hours [facility] Medication administered onsite octreotide (SANDOSTATIN) 5 mcg/mL in sodium chloride 0.9 % 2 50 mL infusion 09/27/2019 07:00:00 PM EST 50 ug/h Intravenous aborted 50 mcg/hr (10 mL/hr), Intravenous, at 10 mL/hr, Continuous, Starting 09/27/19 at 1900, For 30 days [facility] Medication administered onsite pantoprazole (PROTONIX) 0.4 mg/mL in sodium chloride 0.9 % 2 50 mL infusion 09/27/2019 07:00:00 PM EST 8 mg/h Intravenous aborted 8 mg/hr (20 mL/hr), Intravenous, at 20 mL/hr, Continuous, Starting 12/8/19 at 1900, For 30 days
Indication: Active GI bleed [facility] Medication administered onsite ondansetron (ZOFRAN) injection 4 mg [id number] 09/27/2019 06:51:3 2 PM EST 4 mg Intravenous aborted 4 mg, In travenous, Every 8 hours PRN, Nausea, Vomiting, Starting 09/27/19 at 1851, For 30 days [facility] Medication administered onsite diphenhydrAMINE (BENADRYL) injection 25 mg [id number] 09/27/2019 06:51:14 PM EST 25 mg Intravenous active 25 m g, Intravenous, Every 6 hours PRN, Itching, Starting 09/27/19 at 1851, For 30 days
Run slow in a bag
[facility] Medication administered onsite Hydroxyzine Hydrochloride 50 MG Oral Tablet hydrOXYzin e (ATARAX) tablet 25 mg hydrOXYzine (ATARAX) tablet 25 mg 09/27/2019 06:30:15 PM EST 25 mg Oral active 25 mg, Oral, Every 6 hours PRN, Itching, Anxiety, Starting 09/27/19 at 1830, For 30 days [facility] Medication administered onsite albuterol (PROVENTIL HFA;VENTOLIN HFA) inhaler 2 puff [id number] 09/27/2019 06:30:14 PM EST 2 {puff} Inhalation active 2 pu ff, Inhalation, Every 6 hours PRN, Wheezing, Shortness of Breath, Starting 09/27/19 at 1830, For 6 days 16 hours
Shake the inhaler well before each spray.
[facility] Medication administered onsite [facility]. Devices (DURABLE MEDICAL EQUIPMENT SEE SIG) [place] [facility] [phone] 09/21/2019 12:00:00 AM EST act lucia Jejunostomy tube presentChronic narcotic useFailure to thrive in adultHistory of Nadege-en-Y gastric bypassAnticoagulated Use as directed. Start Pepta men 1.5 via J-Tube. Advance 10 ml/hr q 8 hrs to goal rate of 55 ml/hr x 24 hr. To provide 1,980 kcals and 90 grams protein. 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 Anticoagulated pantoprazole 40 MG Delayed Release Oral Tablet Pantoprazole Sodium 40 MG Oral Tablet Delayed Release (PROTONIX) Pantoprazole Sodium 40 MG Oral Tablet De layed Release (PROTONIX) 09/21/2019 12:00:00 AM EST 40 mg Oral aborted Take 1 tablet by mouth every morning [facility] Oxycodone Hydrochloride 10 MG Oral Tablet Oxycodone HC l 10 MG Oxycodone HCl 10 MG 09/14/2019 12:00:00 AM EST suspended 1 tablet as needed eCW1 ([facility]) Oxycodone Hydrochloride 5 MG Oral Tablet Oxycodone HCl 5 MG Oxycodone HCl 5 MG 09/14/2019 12:00:00 AM EST active 2 tab eCW1 ([facility]) Oxycodone Hydrochloride 5 MG Oral Tablet Oxycodone HCl 5 MG Oxycodone HCl 5 MG 09/14/2019 12:00:00 AM EST active 2 tab eCW1 ([facility]) Oxycodone Hydrochloride 10 MG Oral Tablet Oxycodone HC l 10 MG Oxycodone HCl 10 MG 09/14/2019 12:00:00 AM EST active 1 tablet as needed eCW1 ([facility]) POLYETHYLENE GLYCOL 3350 142 MG/ML Oral Solution Polyethylene Glycol 3350 Oral Packet (MIRALAX) Polyethylene Glycol 3350 Oral Packet (MIRALAX) 019 12:00:00 AM EST 17 g Oral aborted Take 1 packet by mouth daily Please substitute bottle for packets, if packets are unavailable. [facility] sennosides, [facility] 8.6 MG Oral Tablet Senna 8.6 MG Oral T ablet Senna 8.6 MG Oral Tablet 09/11/2019 12:00:00 AM EST 2 {tbl} Oral aborted Take 2 tablets by mouth nightly as needed [facility] Oxycodone Hydrochloride 5 MG Oral Tablet oxyCODONE HCl 5 MG Oral Tablet (ROXICODONE) oxyCODONE HCl 5 MG Oral Tablet (ROXICODONE) 09/11/2019 12:00:00 AM EST 5 mg Oral active Take 1 t ablet by mouth every 4 (four) hours as needed for up to 3 days, Max Daily Dose: 30 mg [facility] Bariatric Fusion Oral Tablet Chewable [id number] 09/11/2019 12:00 :00 AM EST 2 {tbl} Oral aborted Chew 2 tab lets by Mouth Two times daily with meals Can get this online [facility] gabapentin 100 MG Oral Capsule Gabapentin 100 MG Oral Capsule (NEURONTIN) Gabapentin 100 MG Oral Capsule (NEURONTIN) 09/11/2019 12:00:00 AM EST 100 mg Oral aborted Take 1 capsule by mo [facility] Three times daily [facility] Docusate Sodium 100 MG Oral Capsule Docu sate Sodium 100 MG Oral Capsule (COLACE) Docusate Sodium 100 MG Oral Capsule (COLACE) 09/11/2019 12:00:00 AM EST 100 mg Oral aborted Take 1 capsule by mouth Two Times Daily for 10 days [facility] TPN adult 09/09/2019 07:00:00 PM EST Intravenous [...]
Hx of gastric. Will do daily MVI/MTE.
[facility] Medication administered onsite 2 ML Metoclopramide 5 MG/ML Prefilled Sy ringe metoclopramide (REGLAN) injection 10 mg metoclopramide (REGLAN) injection 10 mg 09/09/2019 10:45:[address] 10 mg Intravenous active 10 mg, I ntravenous, Every 6 hours, First dose (after last reorder) on Sat09/09/19 at 1045, For 14 doses [facility] Medication administered onsite TPN adult 09/08/2019 07:00:00 [...]
Hx of gastric. Will do daily MVI/MTE.
[facility] Medication administered onsite Fluoxetine 20 MG Oral Capsule fluoxetine (PROZAC) caps ule 20 mg fluoxetine (PROZAC) capsule 20 mg 09/08/2019 03:00:00 PM EST 20 mg Oral active 20 mg, Oral, Daily Standard, First dose on Sat09/08/19 at 1500, For 30 days [facility] Medication administered onsite Hydroxyzine Hydrochloride 50 MG Oral Tablet hydrOXYzin e (ATARAX) tablet 25 mg hydrOXYzine (ATARAX) tablet 25 mg 09/08/2019 02:29:40 PM EST 25 mg Oral active 25 mg, Oral, Every 6 hours PRN, Itching, Anxiety, Starting Sat09/08/19 at 1429, For 30 days [facility] Medication administered onsite albuterol (PROVENTIL HFA;VENTOLIN HFA) inhaler 2 puff [id number] 09/08/2019 02:29:13 PM EST 2 {puff} Inhalation active 2 pu ff, Inhalation, Every 6 hours PRN, Wheezing, Shortness of Breath, Starting Sat09/08/19 at 1429, For 4 days
Shake the inhaler well before each spray.
[facility] Medication administered onsite oxyCODONE (ROXICODONE) immediate release [...] Service consultation and approval.
[Order 2 End] [facility] Medication administered onsite gabapentin 100 MG Oral Capsule gabapentin (NEURONTIN) capsule 100 mg gabapentin (NEURONTIN) capsule 100 mg 09/05/2019 05:00:00 PM EST 100 mg Oral active 100 mg, Oral, Three Times D aily Standard, First dose on 09/05/19 at 1700, For 30 days [facility] Medication administered onsite Bisacodyl 10 MG Rectal Suppository bisacodyl (DULCOLAX ) suppository 10 mg bisacodyl (DULCOLAX) suppository 10 mg 09/05/2019 11:43:27 AM EST 10 mg Rectal active 10 mg, Rectal, Daily PRN, Constipation, Starting 09/05/19 at 1143, For 30 days [facility] Medication administered onsite morphine sulfate (PF) injection 2 mg [id number] 09/05/2019 10:10: 30 AM EST 2 mg Intravenous active 2 mg, In travenous, Every 2 hours PRN, Moderate Pain (Pain Scale Score 4-6), Severe Pain (Pain Scale Score 7-10), may use for breakthrough pain, Starting 09/05/19 at 1010, For 3 days [facility] Medication administered onsite pantoprazole (PROTONIX) injection 40 [...] not crush or chew
[Order 2 End] [facility] Medication administered onsite POLYETHYLENE GLYCOL 3350 142 [...] due to potential increased risk for aspiration.
[facility] Medication administered onsite 2 ML Metoclopramide 5 MG/ML Prefilled Sy ringe metoclopramide (REGLAN) injection 10 mg metoclopramide (REGLAN) injection 10 mg 09/04/2019 09:00:[address] 10 mg Intravenous completed 10 mg, I ntravenous, Every 6 hours, First dose on Sat09/04/19 at 0900, For 21 doses [facility] Medication administered onsite 1 ML Ketorolac Tromethamine 15 MG/ML Car tridge ketorolac (TORADOL) injection 15 mg ketorolac (TORADOL) injection 15 mg 09/04/2019 09:00:00 AM EST 15 mg Intravenous completed 15 mg, Intrav enous, Every 6 hours, First dose on Sat09/04/19 at 0900, For 5 days [facility] Medication administered onsite sennosides, [facility] 8.6 MG Oral Tablet senna 8.6 MG 2 tablet sen na 8.6 MG 2 tablet 09/03/2019 10:00:00 PM EST 2 {tbl} Oral active 2 tablet, Oral, Nightly, First dose on Sat09/03/19 at 2200, For 30 days [facility] Medication administered onsite Simethicone 80 MG Chewable Tablet simethicone (MYLICON ) chewable tablet 80 mg simethicone (MYLICON) chewable tablet 80 mg 09/03/2019 08:07:04 PM EST 80 mg Oral active 80 mg, Oral, E very 6 hours PRN, Flatulence, Starting Sat09/03/19 at 2007, For 30 days [facility] Medication administered onsite multivitamin with minerals (BARIATRIC FUSION) chewable tablet 2 tablet [id number] 09/03/2019 06:00:00 PM EST 2 {tbl} Oral activ e 2 tablet, Oral, 2 Times Daily With Meals, First dose on Sat09/03/19 at 1800, For 30 days [facility] Medication administered onsite 1 ML heparin sodium, [...] units/mL. Reference Policy C-34 Central Line Policy.
[facility] Medication administered onsite sodium chloride (preservative free) [...] 2 mL Heparin 10 units/mL. Reference Policy [facility]-34 Central Line Policy.
[facility] Medication administered onsite sodium chloride (preservative free) [...] lock. Reference Policy C-34 Central Line Policy.
[facility] Medication administered onsite 1 ML heparin sodium, [...] lock. Reference Policy C-34H Central Line Policy.
[facility] Medication administered onsite Docusate Sodium 100 MG Oral Capsule docusate sodium (C OLACE) capsule 100 mg docusate sodium (COLACE) capsule 100 mg 09/03/2019 09:30:00 AM EST 100 mg Oral active 100 mg, Oral, 2 Times Daily, First dose on Digna 09/03/19 at 0930, For 30 days [facility] Medication administered onsite Acetaminophen 325 MG Oral [...] mg from all sources in 24 hours.
[facility] Medication administered onsite Zolpidem tartrate 5 MG Oral Tablet zolpidem (AMBIEN) t ablet 5 mg zolpidem (AMBIEN) tablet 5 mg 09/01/2019 10:00:00 PM EST 5 mg Oral active 5 mg, Oral, Nightly PRN, Sleep, Starting Sat09/01/19 at 2200, For 3 days [facility] Medication administered onsite 0.3 ML Enoxaparin sodium [...] 10-12 hours prior to removing epidural catheter.
[facility] Medication administered onsite diphenhydrAMINE (BENADRYL) injection 25 mg [id number] 09/01/2019 08:41:57 PM EST 25 mg Intravenous active 25 m g, Intravenous, Every 6 hours PRN, Itching, Nausea, Starting Sat09/01/19 at 2041, For 30 days [facility] Medication administered onsite Calcium Chloride 0.0014 MEQ/ML / Potassi um Chloride 0.004 MEQ/ML / Sodium Chloride 0.103 MEQ/ML / Sodium Lactate 0.028 MEQ/ML Injectable Solution lactated ringers infusion lactated ringers infusion 09/01/2019 03:15:00 PM EST 30 mL/h Intravenous aborted at 30 mL/hr, Intravenous, Continuous, Starting Sat09/01/19 at 1515, For 10 days [facility] Medication administered onsite ondansetron (ZOFRAN) injection 4 mg [id number] 09/01/2019 03:06:3 5 PM EST 4 mg Intravenous active 4 mg, In travenous, Every 8 hours PRN, Nausea, Vomiting, Starting Sat09/01/19 at 1506, For 30 days [facility] Medication administered onsite 72 HR Scopolamine 0.0139 MG/HR Transderm al Patch scopolamine (TRANSDERM-SCOP) patch 1.5 mg scopolamine (TRANSDERM-SCOP) patch 1.5 mg 09/01/2019 0 7:52:55 AM EST 1 {patch} Transdermal active 1 patch, Transdermal, Every 72 hours, First dose on Sat09/01/19 at 0800, For 30 days
Programmed to deliver in-vivo approximately 1 mg of scopolamine over 3 days
[facility] Medication administered onsite Ondansetron 8 MG Disintegrating Oral Tab let ondansetron (ZOFRAN-ODT) 8 MG disintegrating tablet ondansetron (ZOFRAN-ODT) 8 MG disintegrating tablet 07/03/2019 12:00:00 AM EDT 8 mg Oral aborted Take 8 mg by mouth as needed [facility] Zolpidem tartrate 6.25 MG Extended Relea se Oral Tablet zolpidem (AMBIEN CR) 6.25 MG CR tablet zolpidem (AMBIEN CR) 6.25 MG CR tablet 07/02/2019 12:00:00 A M EDT aborted TAKE 1 TABLET BY MOUTH ONCE DAILY AT BEDTIME NEEDED (MAX DAILY DOSE OF 1 TABLET). [facility] Promethazine Hydrochloride 25 MG Rectal Suppository [Phenadoz] PHENADOZ 25 MG suppository PHENADOZ 25 MG suppository 07/02/2019 12:00:00 AM EDT 25 mg aborted 25 mg every 8 (eight) hours as n eeded [facility] sodium chloride, preservative free, 0.9 % injection [id number] 05/15/2019 12:00:00 AM EDT aborted 1-2 liters IV da kristina as needed. [facility] 1 ML heparin sodium, porcine 100 UNT/ML Injection Heparin Lock Flush (HEPARIN FLUSH, PORCINE,) 100 UNIT/ML injection Heparin Lock Flush (HEPARIN FLUSH, PORCINE,) 100 UNIT/ML injection 05/15/2019 12:00:00 AM EDT aborted 5 ml IV after dose and prn [facility] Sodium Chloride Flush (NORMAL SALINE FLUSH) 0.9 % SOLN [id number] 05/15/2019 12:00:00 AM EDT aborted 10 mls IV before and after dose and prn [facility] sodium chloride 0.9 % solution [id number] 04/30/2019 12:00:00 AM ED T 10 mL aborted 10 mLs as needed [facility] Glucagon 1 MG Injection glucagon (GLUCAGON EMERGENCY) 1 MG injection glucagon (GLUCAGON EMERGENCY) 1 MG injection 11/14/2018 12:00:00 AM EST 1 mg Subcutaneous aborted Gastroparesis Inject 1 mg into the skin as needed For low blood glucose with symptoms [facility] Gastroparesis pantoprazole 40 MG Delayed Release Oral Tablet pantoprazole (PROTONIX) 40 MG tablet pantoprazole (PROTONIX) 40 MG tablet 10/10/2018 12:00:00 AM EST 40 mg Oral aborted Take 40 mg by mouth every morning [facility] Ondansetron 2 MG/ML Injectable Solution Ondansetron HCl (ZOFRAN) 40 MG/20ML SOLN Ondansetron HCl (ZOFRAN) 40 MG/20ML SOLN 04/16/2018 12:00:00 AM EDT 4 mg Intravenous aborted Inject 4 mg into t he vein [facility] Zolpidem tartrate 12.5 MG Extended Relea se Oral Tablet zolpidem ER 12.5 mg tablet,extended release,multiphase zolpidem ER 12.5 mg tablet,extended release,multiphase completed zolpidem tartrate 12.5 MG Extended Release Oral Tablet ROBERTO ([facility]) Morphine Sulfate 15 MG Oral Tablet morphine 15 mg imme diate release tablet morphine 15 mg immediate release tablet completed morphine sulfate 15 MG Oral Tablet ROBERTO ([facility]) 0.6 ML Enoxaparin sodium 100 MG/ML Prefi lled Syringe enoxaparin 60 mg/0.6 mL subcutaneous syringe enoxaparin 60 mg/0.6 mL subcutaneous syringe completed 0.6 ML enoxaparin sodium 100 MG/ ML Prefilled Syringe ROBERTO ([facility] ) Oxycodone Hydrochloride 20 MG/ML Oral So lution oxycodone 20 mg/mL oral concentrate oxycodone 20 mg/mL oral concentrate completed oxycodone hydrochloride 20 MG/ML Oral Solution ROBERTO ([facility] ) 3 ML heparin sodium, porcine 100 UNT/ML Prefilled Syringe Heparin Lock Flush (Porcine) (PF) 100 unit/mL intravenous syringe Heparin Lock Flush (Porcine) (PF) 100 unit/mL intravenous syringe compl eted 3 ML heparin sodium, porcine 100 UNT/ML Prefilled Syringe ROBERTO ([facility] ) Oxycodone Hydrochloride 1 MG/ML Oral Solution oxycodon e 5 mg/5 mL oral solution oxycodone 5 mg/5 mL oral solution comp leted oxycodone hydrochloride 1 MG/ML Oral Solution [facility]ERTO ([facility]) Ondansetron 8 MG Disintegrating Oral Tab let ondansetron 8 mg disintegrating tablet ondansetron 8 mg disintegrating tablet completed ondansetron 8 MG Disintegrating Oral Tablet ROBERTO ([facility]) benzonatate 100 MG Oral Capsule benzonatate 100 mg cap nuvia benzonatate 100 mg capsule completed benzonatate 10 0 MG Oral Capsule ROBERTO ([facility] ) Fluoxetine 4 MG/ML Oral Solution fluoxetine 20 mg/5 mL (4 mg/mL) oral solution fluoxetine 20 mg/5 mL (4 mg/mL) oral solution completed fluoxetine 4 MG/ML Oral Solution ROBERTO ([facility]) Ceftriaxone 100 MG/ML Injectable Solutio n ceftriaxone 10 gram solution for injection ceftriaxone 10 gram solution for injection completed ceftriaxone 100 MG/ML Injectable Solution ROBERTO ([facility]) Prednisone 20 MG Oral Tablet prednisone 20 mg tablet prednisone 20 mg tablet completed prednisone 20 MG Oral Tablet ROBERTO ([facility]) Ceftriaxone 2000 MG Injection ceftriaxone 2 gram solut ion for injection ceftriaxone 2 gram solution for injection completed ceftriaxone 2000 MG Injection ROBERTO ([facility]) Metoclopramide 10 MG Oral Tablet metoclopramide 10 mg tablet metoclopramide 10 mg tablet completed metocloprami de 10 MG Oral Tablet ROBERTO ([facility]) pantoprazole 40 MG Delayed Release Oral Tablet pantoprazole 40 mg tablet,delayed release pantoprazole 40 mg tablet,delayed release completed pantoprazole 40 MG Delayed Release Oral Tablet ROBERTO ([facility]) gabapentin 100 MG Oral Capsule gabapentin 100 mg capsu le gabapentin 100 mg capsule completed gabapentin 100 MG Oral Capsule ROBERTO ([facility]) TPN ADULT (ION-BASED) Intravenous abor romario Inject into the vein [id number] Indications: 14 HRS RUN [facility] Doxycycline Monohydrate 5 MG/ML Oral Rani pension doxycycline monohydrate 25 mg/5 mL oral suspension doxycycline monohydrate 25 mg/5 mL oral suspension completed doxycycline monohydrate 5 MG /ML Oral Suspension ROBERTO ([facility]) Amoxicillin 500 MG Oral Capsule amoxicillin 500 mg cap nuvia amoxicillin 500 mg capsule completed amoxicillin 50 0 MG Oral Capsule [facility]ERTO ([facility]) Zolpidem tartrate 5 MG Oral Tablet zolpidem 5 mg tablet zolpidem 5 mg tablet completed zolpidem tartr ate 5 MG Oral Tablet [facility]ERTO ([facility]) 0.6 ML Enoxaparin sodium 100 MG/ML Prefi lled Syringe Enoxaparin Sodium 60 MG/0.6ML Subcutaneous Solution (LOVENOX) Enoxaparin Sodium 60 MG/0.6ML Subcutaneous Solution (LOVENOX) 60 mg Subcutaneous aborted Inject 60 mg into the skin daily [facility] Misoprostol 0.2 MG Oral Tablet misoprostol 200 mcg tab let misoprostol 200 mcg tablet completed misoprostol 0.2 MG Oral Tablet ROBERTO ([facility]) Nystatin [id number] UNT/ML Topical Cream nystatin 100,000 unit/gram topical cream nystatin 100,000 unit/gram topical cream completed nystatin [id number] UNT/ML Topical Cream [facility] ([facility] ertapenem 1 gram solution for injection [id number] completed ertapenem 1000 MG Injection [facility]ERTO ([facility] Zolpidem tartrate 6.25 MG Extended Relea se Oral Tablet zolpidem ER 6.25 mg tablet,extended release,multiphase zolpidem ER 6.25 mg tablet,extended release,multiphase completed zolpidem tartrate 6.25 MG Extended Release Oral Tablet [facility] ([facility] sodium chloride 0.9 % intravenous piggyback [id number] completed sodium chloride 9 MG/ML Injection ROBERTO ([facility] Oxycodone Hydrochloride 5 MG Oral Tablet oxycodone 5 m g tablet oxycodone 5 mg tablet completed oxycodone hydro chloride 5 MG Oral Tablet ROBERTO ([facility] ) Metronidazole 5 MG/ML Injectable Solutio n metronidazole 500 mg/100 mL-sodium chloride(iso) intravenous piggyback metronidazole 500 mg/100 mL-sodium chloride(iso) intravenous piggyback co mpleted 100 ML metronidazole 5 MG/ML Injection [facility]ERTO ([facility] HEPARIN LOCK FLUSH IV Intravenous aborted Inject into the vein [facility] 1 ML heparin sodium, porcine 10 UNT/ML I njection Heparin Lock Flush 10 UNIT/ML Intravenous Solution Heparin Lock Flush 10 UNIT/ML Intravenous Solution 10 U Intracatheter aborted Patency Maintenance of Ind welling Catheter 10 Units by Intracatheter route as needed (3 ml)Current Heparin flush patient uses at home for [place] catheter Indications: Prevention of Closure of Indwelling Catheter [facility] Patency Maintenance of Indwelling Cathet er linezolid 600 MG Oral Tablet linezolid 600 mg tablet linezolid 6 00 mg tablet completed linezolid 600 MG Oral Tablet [facility] ([facility] sodium chloride 0.9 % intravenous solution [id number] completed sodium chloride 9 MG/ML Injection [facility] ([facility] Promethazine Hydrochloride 25 MG Rectal Suppository [Promethegan] Promethegan 25 mg rectal suppository Promethegan 25 mg rectal suppository completed promethazine hydrochloride 25 MG Rectal Suppository [Promethegan] [facility]ERTO ([facility] ) Insurance Providers Payer name Policy type / Coverage type Policy ID Covered libertarian ID Covered libertarian's relationship to fuller Policy Fuller Plan Information [employer] EMPIRE [place] [id number] [facility] [id number] [facility] O [id number] [employer] E[employer]IRE -PHYSICIAN [id number] 01 [id number] [facility] EMPIRE -PHYSICIAN [id number] 01 [id number] EMPIRE BLUE CROSS BLUE SHIELD -O/P [id number] 01 [id number] EXCELLUS BLUE CROSS BLUE SHIELD HEA [id number] SP [id number] EMPIRE PLAN [facility] [id number] Spouse [id number] [place] Plan Primary [id number] [facility] [id number] HU2 89 [id number] [place] [id number] Spouse [id number] [place] [id number] [facility] [id number] 03 HU2 [id number] BCBS EMPIRE ROBERT DIV [id number] HU2 [id number] BCBS EMPIRE ROBERT DIV [id number] HU2 [id number] [facility] [id number] HU2 89 [id number] BCBS EMPIRE ROBERT DIV [id number] HU2 [id number] BCBS EMPIRE ROBERT DIV [id number] HU2 [id number] BCBS EMPIRE ROBERT DIV [id number] HU2 [id number] EMPIRE PLAN [facility] [id number] Spouse [id number] ANSI-Commercial q68a7g79-89a2-55go-s011-9g4tfm834t2t g73c7s69-45n5-70ts-g670-4d8zsp241b3u [facility] [id number] HU2 [id number] ANSI-Commercial u3w4449q-7cwo-7t40-a3r5-yry7xr648ae4 d7s6613s-8ceg-0f45-x5s8-zes6cd353rn6 ANSI-Commercial q00o9464-16gx-938h-19j4-m1w3670f4jw3 h32p4793-95xt-265v-11n0-y3f2912u0tc6 ANSI-Commercial 3l8246vu-60e8-7e84-834p-2y45f66n7m66 8m3958ve-64y7-4u35-080k-1p58r37u2h76 ANSI-Commercial bj7995s5-f366-7355-ha84-h3ek4x571r68 ox0659v2-n334-0385-dx17-q7ms0r458c80 ANSI-Commercial 03130xc1-dr22-6z99-b8q7-t53b8121t378 37059sw7-sx88-8f80-q4m1-l03s1023k130 ANSI-Commercial 20mo655m-667r-2560-d646-o785b3t3o282 58xi739d-223n-7329-p457-q685n5w2y633 ANSI-Commercial u239zvf9-46i2-06zt-oi1z-w8vm3zlvh931 p134pfh9-26p1-78dj-dr1z-q1yo0rbae418 ANSI-Commercial 4f845kb5-fe97-1188-x9io-7i3f28s304m2 7l548lu1-ud11-8123-b9qd-3g1b01g145q2 ANSI-Commercial ay573v47-191g-9a06-r7uc-m936sa4336k8 aq333i24-791e-7c40-i9ga-n982wg6341a2 ANSI-Commercial fl3257q7-164g-7918-8794-j29ix7m038j7 vw8161m8-082p-3650-6625-p02so4d354f8 ANSI-Commercial 175ko18q-7mb2-07e4-2g43-0s1xarc96697 946kq59w-3cj3-67a1-8d72-9r0nfft74084 ANSI-Commercial 1i545m1h-45a5-9674-0210-m00z1815cd4r 2i219t5n-68s5-9680-2631-b41a5546nl4a ANSI-Commercial eqapjdsl-3610-8a742g45-574v-4657kh23t435 jaopqxuw-0079-6b700q07-471i-5923ty90v715 [facility] [id number] [facility] [id number] ANSI-Commercial 83g5ag25-5kn5-2741-6vbw-7y2a3276u102 13z9nq20-8za4-3308-0dxh-1m0v4225u666 ANSI-Commercial 41oax800-7i33-0lx0-q169-9dc85g4j8wl7 77mhf773-3l96-4tz4-x055-5ck94l0j3wu1 [facility] ([facility] [id number] Family Dependent [id number] ANSI-Commercial 64083q6o-pmrs-758x-12v0-69t14dqx5x20 46404t4k-jegj-110o-45m9-50r36ulx2j03 ANSI-Commercial 8060k5qn-f0s1-3k12-88s5-36i7axq3p36q 2990d2sz-j8g5-6j55-36y3-05p5cqd9r24p ANSI-Commercial o4876834-9gx1-459e-930v-0ib8m6225rml g7385525-2is5-861u-694j-1io8e6912jrd ANSI-Commercial 07l32229-23g3-4n2y-ct25-3c4i8cdr2160 88i61638-64e6-9n9f-gw62-5a4a9bgb9314 ANSI-Commercial 6nk8kv42-191b-5cex-v30e-1f878u8378w4 2fz4se69-887h-9ixl-v40q-7n666s2013x9 ANSI-Commercial 41b86r0j-c305-0q7q-70l0-o6n7d539ll3o 40c27f6v-v449-4m6m-19u3-n0w5c449sy3n ANSI-Commercial 5by428ql-x201-50do-174s-54252324z9u2 8fh268dy-y303-82ae-567n-77813702g8u3 ANSI-Commercial 351hsl30-1nlm-4e9k-gbol-952n00m17505 057zxs08-4tul-0v2g-rgjs-640y85t04240 ANSI-Commercial 5225j928-4343-5ld3-930z-41v4dvyg1555 3462i127-4464-9tb8-238d-41u2gesi9649 ANSI-Commercial 312l2yc2-7s79-45bp-buh0-10l8163225as 435q7gf6-5e63-76nq-sdj6-39o9451688ie ANSI-Commercial 9421ecr7-t9o2-87c2-8ws7-g3605y4m0960 8010meh3-w8a0-51f1-1vo9-y3122b1c2166 ANSI-Commercial 272486z1-37t7-3875-m82o-uf385o157j96 142021p3-12x6-7963-z09g-cd079k404z35 ANSI-Commercial 8by88501-h7q1-04m6-yb17-8075673n3kkm 8rc56231-c6t4-82z3-yd40-1341576a6rnk ANSI-Commercial 8o69e9w6-mq9d-4u08-fe68-t6i6k0td5808 0y91p6a5-cl0q-9p89-np73-a3s7m6pi4844 ANSI-Commercial 291083l0-2me8-964v-2343-b684a44c128y 740168b0-3lx4-145f-0311-n977a36h183q ANSI-Commercial 46ha3640-611x-185y-355n-6wi54br9z349 70qz7245-058n-787h-959q-7an90bb5d658 ANSI-Commercial g8y0a76z-6mow-3ji8-he8d-7k6495rxmw56 j0l7e42d-9fxr-8xr5-sj6k-1e2791mowb10 ANSI-Commercial 5um7p816-pj95-2545-6o19-64k27f5qv254 5te6u601-ag53-9141-5q71-43q40m4ga241 ANSI-Commercial o738i064-14w7-406a-e8ha-3yg20282ly3n q382p775-31z5-150g-f2wy-2ec49805da5m ANSI-Commercial 373j0p8u-296a-9507-814b-533p699170p7 641s3i8z-221q-9901-870a-289c166460w8 ANSI-Commercial l62qo6u8-71hi-4979-r7z3-5g5g5v4fawtg o83no9m0-37dh-5979-u3p1-4h2g0f5hyybc ANSI-Commercial 341s42ia-30rm-3k2w-3355-6t7m71h6rl67 361c12sr-39bx-2e5f-0748-9b4y88t0or98 ANSI-Commercial 91k9806h-9t6b-93v2-yb2c-57k00gnjgi76 59c5707a-3o1u-83p7-fy5o-69h64fxbyc07 ANSI-Commercial 8j233z00-4q71-0339-uehw-e85482k2c083 1t462a16-7x97-1868-sdst-t25528l6b330 ANSI-Commercial x5k40bq1-nn8h-9319-e680-c41nl31lnoy4 e8s50lv3-gs3h-1218-x230-b57cq24fskn9 ANSI-Commercial 40484p1i-9x59-4837-g118-q79l6y95ndw0 30102y0j-8k06-6306-a658-q65p3j65avv0 ANSI-Commercial 2y883467-6a9p-74jp-8j62-422121if4978 9r053386-3i3c-47av-8h71-637598tc8845 [facility] [id number] HU2 89 [id number] BCBS EMPIRE ROBERT DIV [id number] HU2 [id number] ANSI-Commercial 134126kd-57b2-0h21-6qz0-2p5g1btm12e4 601282sf-47d6-0h70-1nf4-5c2j1nph72v3 [facility] [place] Commercial [id number] Family Depende nt [id number] [facility] [place] Commercial [id number] Family Depende nt [id number] ANSI-Commercial s6lu0185-p9i2-3u2n-6els-381m1t8qnbvs w6kw5144-r3d5-7w3k-8vds-120r8s9wqqcm ANSI-Commercial 0b26mco9-k9d4-6egl-w775-0f463126uv2v 5d20ext6-d2v5-3dhr-o969-2t354502op3f ANSI-Commercial 6o6sy950-0816-86ab-y701-010l306209qa 9o9yu561-3439-97ua-u454-183u643023or ANSI-Commercial ctid1522-cpnr-552m-bq0n-5o10190so6m2 nnpf2109-obam-582h-hn3k-8z15070wm2i2 ANSI-Commercial 0m911403-1h83-7z16-40g3-3537498s5s7f 5k449212-2q34-3n44-58e7-7812743d4f1p ANSI-Commercial 9w10x6nb-0668-528a-j390-989m4q9oq5w5 1w83p4tx-0289-105z-z220-321a2w3em6n1 ANSI-Commercial a52hs24r-4m2a-36o3-0w33-958k98615iw1 k81og39d-2t2u-37f8-8n86-767d21583en4 ANSI-Commercial q9402cz8-28je-0444-64r5-383p1i2a928k w8100kk7-85uf-3030-02m5-369p9r1r638t ANSI-Commercial v8844009-83t6-6589-j5pr-0t79t0k94385 p2835185-73j4-3480-n9bu-9k88e0b39427 ANSI-Commercial 6f6md46o-2241-60d1-r160-su4i9964j66b 3y1ad86n-2944-32i1-m828-ga3r5758v95a ANSI-Commercial 9whlf4f5-y5u0-7r15-cxb8-0pj7d215d133 6uplj1c9-p6p3-2k79-soz8-3lu6b897v759 ANSI-Commercial g2j5a4nc-5026-6f48-510g-ag907f4lu722 c3d6r1to-9168-5z61-772h-zt324q6pq520 ANSI-Commercial 86318vu5-k30e-6s08-38s8-s27f4cw08360 07826xi4-r52o-1x49-93s8-u11e9pq37557 ANSI-Commercial wzn290jl-ja55-5043-fs71-2aq78a5x174f qbu935fz-ps69-4374-ux00-4se24n4t111l ANSI-Commercial 790uy56e-4421-0rj5-u01r-3dih637adz17 450il80e-0872-9tk1-a09k-5ufi209nbn09 ANSI-Commercial x5p5035i-8p88-6q0m-u8u4-21p12y59ci1a f0k7338b-5k38-4p9y-q2x4-06b18z33pc2y ANSI-Commercial 7y5t599j-2912-698i-n9p8-tq5xlyu54817 3l1j419b-3589-548n-h4m3-mn9yjsp67105 ANSI-Commercial 08o9l85z-77xo-9163-39ra-85b518361h00 67k7j34u-78ds-0517-97tm-86c555148a63 ANSI-Commercial 96310h25-7l5c-5va7-a27y-k660609qa227 31041g74-7l7s-8gb0-v18o-j030961br243 ANSI-Commercial g67r95vk-p57v-3772-2g09-daz5395x3yu8 l07h76tp-p16n-4204-7o14-rwk5232k1gn8 ANSI-Commercial 7eps79k4-0571-06e2-401l-22873vg6w3n2 5rxd51x0-2862-67z8-417w-13641gx9u2u9 ANSI-Commercial 880m8b1e-h7yr-6r23-8mxp-86595d9g325x 570j5t7b-h9cj-9m68-7mzl-52151f3h306o ANSI-Commercial 6r2nv336-1316-1620-f149-k157y7pyp3q3 4u7vb924-2863-6903-j619-p966r0hkc0l6 ANSI-Commercial 5c0h8wrp-8z6h-422v-55s1-234d9t7059v6 5w1p2raa-1c6f-904a-75b4-442x3x5647s7 ANSI-Commercial 4b77c65o-f04j-8dy2-pn9e-50p8z54m3i29 7e17f18h-w61h-3ap4-nj0m-29k3b55g2d28 ANSI-Commercial 18y56b2o-4ox6-4aqi-8z13-9t6bf96xn038 20w70z6c-2nq4-5oqx-4p82-1p8hp61ns813 ANSI-Commercial 0v09x23t-6497-7466-7npt-34k167608t43 0l20m70p-7290-5612-4uct-27a299851z61 ANSI-Commercial 731rx491-v482-5542-v8g9-k5np30371r41 361vx769-s343-5444-j0o8-m1mu55497t53 ANSI-Commercial 13e8o043-3714-6z23-04v7-ok81vqz9m56m 69b7u137-3576-5u07-59g0-lb73kdv9e71i ANSI-Commercial 0j3v39rn-zopb-3vp4-yq3q-x3z7vhg8q870 7v3n48kq-eogo-1gc5-vx5r-n5e1qfv9n384 ANSI-Commercial 7pl0662m-5814-77y5-s495-4865w5833073 0tt4471e-5906-33h7-p294-7521z9326792 ANSI-Commercial 3dpe30w2-20hf-73v7-3394-7w83s4ls9524 8ake24h2-75ak-34r5-6915-9d05q2th2204 ANSI-Commercial l47f95j6-m3ml-5569-z173-80d6f70512l8 o28a92w7-g0pl-7518-q118-22l0j47319d7 EXCELLUS BLUE CROSS BLUE SHIELD HEA [id number] ANSI-Commercial 24u5de8o-2198-1l38-dsdu-f032i4o09a1n 00g8ym9h-1073-4k72-woqc-q931e2r93d6w ANSI-Commercial 744f8125-82ur-01w3-9g4x-cuvxc68c0275 971z8794-52xl-60l9-9t9y-biuig06w0518 BCBS EMPIRE [facility] [id number] [facility] [id number] ANSI-Commercial 2jn08582-7jx0-73yo-0z47-m704rd76jmo1 8tj23805-4mn2-83qq-1s11-r868cm01xsd7 ANSI-Commercial 2gg3xo35-r0p8-419j-p098-822ze5s1p4p5 7ho9kx33-w2h7-549g-g445-658uw0s8e2k5 ANSI-Commercial d7yc05g3-i515-40xz-6zn2-01q56c07v53b v4ma20r6-v414-99bi-1td8-94d89a24w28p ANSI-Commercial la07pjnq-9139-9348-d3tw-20419xol74z3 gh41vjvn-1860-4350-h3kn-36980bhk95w5 ANSI-Commercial o3d7z608-189z-271p-ay80-5gx19qr1499r o0l6t742-501b-774i-ly50-9eg17yz6295o ANSI-Commercial p5880634-w31x-8k4x-z0p8-yg0991ffy681 m6423055-a88o-5c2n-y7s0-yl2531bqf859 ANSI-Commercial 58953h94-60iq-9242-x2s3-z51vs575i5i6 00517b66-43gz-0926-m8t2-p75vy021a3a1 ANSI-Commercial 85440hf8-m2q3-361b-n2th-d806rh462o46 70847ei1-c9k6-956j-y3po-o436ng678x38 ANSI-Commercial 5977vc07-8522-1fq7-qb0e-76063y919z43 2976ng53-7510-8dn8-zv2s-53021g537q72 ANSI-Commercial 3magqx67-1296-2b37-9dpo-2666pgjs8b3v 9mnhoq94-0025-0a27-4imt-7529pckd0h6s ANSI-Commercial 9s7bp39l-pspu-8531-c58p-109238x1498p 3q3zc99g-vcrt-3033-w59l-064721k4966f ANSI-Commercial s6wt43u1-o3y9-8j1z-ghd3-9nb7060u11o0 d3vu84z4-i1r6-7d7i-lmb2-8yw1421c89y8 ANSI-Commercial q4236h56-0866-342k-bz46-808p85u4047a v9539h55-0152-333o-nl87-398p88e3708p ANSI-Commercial 457i35c9-952w-651z-008b-jd46u657rr6j 809s57k8-419r-988a-342o-zn98u076sf4i [place] Plan Commercial [id number] Family Dependent [id number] [facility] [id number] SP [id number] [place] Plan Commercial [id number] Family Dependent [id number] [place] Plan Commercial [id number] Family Dependent [id number] [facility] [id number] HU2 [id number] [place] Plan Commercial [id number] Family Dependent [id number] BCBS EMPIRE ROBERT DIV [id number] HU2 [id number] [facility] [place] Health Maintenance Organization (HMO) [id number] Family Dependent [id number] [facility] [place] Health Maintenance Organization (HMO) [id number] Family Dependent [id number] [facility] [place] [facility] Maintenance Organization (HMO) [id number] Family Dependent [id number] [facility] [place] [facility] Maintenance Organization (HMO) [id number] Family Dependent [id number] [facility] [place] Commercial [id number] Family Depende nt [id number] [facility] -[facility] [id number] 1 [id number] [facility] [place] Commercial Family Depende nt [place] Plan F [id number] SPOUSE [id number] [facility] [id number] 01 [id number] EMPIRE (STATE EMP) O [id number] P [id number] EXCELLUS BCBS [id number] Spo YLS [id number] VALUE [employer]IONS OUTPATIENT CLAIM [id number] HU2 [id number] [place] Plan F [id number] SPOUSE [id number] EXCELLUS BCBS [id number] Spo YLS [id number] [place] [facility] Insurance [id number] 1 [id number] BC BLUE CARD 1 [id number] SELF PAY 2 UNAVAILABLE 1 UNAVAILA BLE [id number] Problems, Conditions, and Diagnoses Code Display Name Description Problem Type Effective Dates Data Source(s) I26.93 08819713 Single subsegmental pulmonary embolism without acute cor pulmonale Problem 08/25/2020 12:00:00 AM EST eCW1 ([facility]) D63.8 692217085 Anemia, chronic disease Problem 04/05/2020 1 2:00:00 AM EDT eCW1 ([facility]) D72.829 252913349 Leukocytosis, unspecified type Problem 03/28/2020 12:00:00 AM EDT eCW1 ([facility]) Z93.4 [id number] Jejunostomy tube present Problem 02/18/2020 12:00:00 AM EDT eCW1 ([facility]) Z93.4 842323061 Jejunostomy tube present Problem 02/18/2020 12:00:00 AM EDT eCW1 ([facility]) B95.7 362547503 Staphylococcus epidermidis infection Prob omkar 01/18/2020 12:00:00 AM EDT eCW1 ([facility]) R50.9 810922316 Persistent fever Problem 01/18/2020 12:00:00 AM EDT eCW1 ([facility]) T80.219A 768944941 Central venous line infection, initial en counter Problem 01/18/2020 12:00:00 AM EDT eCW1 ([facility]) A48.8 97632430 Serratia marcescens infection Problem 2019 12:00:00 AM EDT eCW1 ([facility]) T80.219A 274711998 Central venous line infection, initial en counter Problem 01/18/2020 12:00:00 AM EDT eCW1 ([facility]) A48.8 93113688 Serratia marcescens infection Problem 2019 12:00:00 AM EDT eCW1 ([facility]) B95.7 868449357 Staphylococcus epidermidis infection Prob omkar 01/18/2020 12:00:00 AM EDT eCW1 ([facility]) R50.9 043203024 Persistent fever Problem 01/18/2020 12:00:00 AM EDT eCW1 ([facility]) E16.1 2112893 Hyperinsulinemic hypoglycemia Problem 2019 12:00:00 AM EST eCW1 ([facility]) E16.1 7107487 Hyperinsulinemic hypoglycemia Problem 2019 12:00:00 AM EST eCW1 ([facility]) intractable abd pain intractable abd pain Diagnosis 10/17/2020 05:21:00 PM [facility] Z9884 Bariatric surgery status Bariatric surgery status Diag nosis 10/17/2020 11:18:00 AM [facility] Z9049 Acquired absence of other specified part s of digestive tract Acquired absence of other specified parts of digestive tract Diagnosis 11:18:00 AM [facility] A69991 Personal history of urinary (tract) infe ctions Personal history of urinary (tract) infections Diagnosis 10/17/2020 11:18:00 AM [facility] Y89374 Personal history of pulmonary embolism P ersonal history of pulmonary embolism Diagnosis 10/17/2020 11:18:00 AM [facility] O75849 Contact with and (suspected) exposure to other viral communicable diseases Contact with and (suspected) exposure to other viral communicable diseases Diagnosis 10/17/2020 11:18:00 AM [facility] R7401 Elevation of levels of liver transaminas e levels Elevation of levels of liver transaminase levels Diagnosis 10/17/2020 11:18:00 AM [facility] R1031 Right lower quadrant pain Right lower quadrant pain Di agnosis 10/17/2020 11:18:00 AM [facility] D64.9 Anemia, unspecified Anemia, unspecified Diagnosis 1 10/21/2019 12:00:00 AM EDT [facility] R10.13 Epigastric pain Epigastric pain Diagnosis 07/31/2020 03:1 2:38 PM EDT [facility] ABD PAIN ABD PAIN Diagnosis 07/31/2020 03:12:38 PM ED T [facility] abd pain abd pain Diagnosis 07/31/2020 08:03:00 AM ED T [facility] R1033 Periumbilical pain Periumbilical pain Diagnosis 08/2020 05:17:00 AM EDT [facility] 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, 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 Postsurgical malabsorption, not elsewhere classified Diagnosis 07/31/2020 05:17:00 AM EDT [facility] 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) Diagnosis [facility] Volume depletion, unspecified Volume depletion, unspec ified Diagnosis 07/31/2020 05:17:00 AM EDT [facility] R112 Nausea with vomiting, unspecified Nausea with vo miting, unspecified Diagnosis 07/31/2020 05:17:00 AM EDT [facility] R1013 Epigastric pain Epigastric pain Diagnosis 07/31/2020 05:1 7:00 AM [facility] K3184 Gastroparesis Gastroparesis Diagnosis 07/30/2020 03:19:00 PM [facility] R1084 Generalized abdominal pain Generalized abdominal pain Diagnosis 07/30/2020 03:19:00 PM [facility] D649 Anemia, unspecified Anemia, unspecified Diagnosis 0 06/03/2020 04:15:00 PM [facility] N390 Urinary tract infection, site not specif ied Urinary tract infection, site not specified Diagnosis 06/03/2020 04:15:00 PM [facility] K625 Hemorrhage of anus and rectum Hemorrhage of anus and r ectum Diagnosis 06/03/2020 04:15:00 PM [facility] R000 Tachycardia, unspecified Tachycardia, unspecified Diag nosis 05/31/2020 07:27:00 PM [facility] R002 Palpitations Palpitations Diagnosis 05/31/2020 07:27:00 P M [facility] K5900 Constipation, unspecified Constipation, unspecified Di agnosis 05/22/2020 04:24:00 PM [facility] K86.89 Other specified diseases of pancreas Oth er specified diseases of pancreas Diagnosis 03/22/2020 09:51:08 AM [facility] K31.84 Gastroparesis Gastroparesis Diagnosis 02/23/2020 09:03:07 AM [facility] G89.29 Other chronic pain Other chronic pain Diagnosis 04/2020 08:38:11 PM [facility] R10.9 Unspecified abdominal pain Unspecified abdominal pain Diagnosis 10/27/2019 08:38:11 PM [facility] R52 Pain, unspecified Pain, unspecified Diagnosis 10/27/2019 07:32:30 PM [facility] sepsis sepsis Diagnosis 10/27/2019 07:32:30 PM [facility] E876 Hypokalemia Hypokalemia Diagnosis 10/27/2019 11:19:00 AM [facility] N3001 Acute cystitis with hematuria Acute cystitis with pedro turia Diagnosis 10/27/2019 11:19:00 AM [facility] I509 Heart failure, unspecified Heart failure, unspecified Diagnosis 10/27/2019 11:19:00 AM [facility] R6521 Severe sepsis with septic shock Severe sepsis with sep tic shock Diagnosis 10/27/2019 11:19:00 AM [facility] A419 Sepsis, unspecified organism Sepsis, unspecified organ ism Diagnosis 10/27/2019 11:19:00 AM [facility] R509 Fever, unspecified Fever, unspecified Diagnosis 0 11:19:00 AM [facility] E86.0 Dehydration Dehydration Diagnosis 10/05/2019 02:18:23 PM 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 Upper GI bleed, s/p gastric bypass with j-tube placement 3 weeks ago, pancreatitis. Upper GI bleed, s/p gastric bypass with j-tube placement 3 weeks ago, pancreatitis. 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 Z78.9 Other specified health status Other specified health s tatus Diagnosis 09/21/2019 04:46:49 PM [facility] Z79.01 longterm (current) use of anticoagulant s longterm (current) use of anticoagulants Diagnosis 09/21/2019 11:00:59 AM [facility] Surgeries/Procedures Procedure Description Date Indications Data Source(s) MAGNESIUM MAGNESIUM Routine 08/04/2020 4:42 AM EDT 08/04/2020 08:42:00 AM EDT [facility] BASIC METABOLIC PANEL CALCIUM TOTAL BASIC METABOLIC PANEL Routi ne 08/04/2020 4:42 AM EDT 08/04/2020 08:42:00 AM EDT [facility] FL UPPER GI WITH DOUBLE CONTRAST WITH SMALL BOWEL FOLL OW THROUGH FL UPPER GI WITH DOUBLE CONTRAST WITH SMALL BOWEL FOLLOW THROUGH Routine 1 11:54 AM EDT 08/03/2020 03:54:38 PM EDT [facility] POCT GLUCOSE METER UNSOLICITED RESULTS POCT GLUCOSE METER U NSOLICITED RESULTS Routine 08/02/2020 11:00 AM EDT 08/02/2020 03:00:00 PM EDT [facility] CYANOCOBALAMIN VITAMIN B-12 VITAMIN B12 AND FOLATE Routine 08/02/2020 10:33 AM EDT 08/02/2020 02:33:00 PM EDT [facility] IRON BINDING CAPACITY IRON BINDING CAPACITY, TOTAL Routine 08/02/2020 10:33 AM EDT 08/02/2020 02:33:00 PM EDT [facility] BLOOD COUNT RETICULOCYTE AUTOMATED RETICULOCYTES Routine 08/02/2020 10:33 AM EDT 08/02/2020 02:33:00 PM EDT [facility] HAPTOGLOBIN QUANTITATIVE HAPTOGLOBIN Routine 08/02/2020 10:33 AM ED T 08/02/2020 02:33:00 PM EDT [facility] FERRITIN FERRITIN Routine 08/02/2020 10:33 AM EDT 08/02/2020 02:33:00 PM EDT [facility] POCT GLUCOSE METER UNSOLICITED RESULTS POCT GLUCOSE METER U NSOLICITED RESULTS Routine 08/02/2020 9:49 AM EDT 08/02/2020 01:49:00 PM EDT [facility] EEG-INPATIENT EEG-INPATIENT Routine 08/02/2020 9:06 AM EDT 08/02/2020 01:06:54 PM EDT [facility] UPPER GI ENDOSCOPY UPPER GI ENDOSCOPY 08/02/2020 9:05 AM E DT 08/02/2020 01:05:27 PM EDT [facility] UPPER GI NDSC DX W/WO COLLECTION SPECIMEN EGD (ESOPHAGOGASTRODU ODENOSCOPY) 08/02/2020 8:09 AM EDT abdominal pain/hx ru-en y with reversal 08/02/2020 12: 09:00 PM EDT - 08/02/2020 12:48:00 PM EDT [facility] US ABDOMINAL REAL TIME W/IMAGE DOCUMENTATION US ABDOMEN COMPLET E Routine 08/02/2020 6:57 AM EDT 08/02/2020 10:57:56 AM EDT [facility] CUL BACT STOOL AEROBIC ADDL PATHOGENS&ID EA ENTERIC PATHOGEN PA BRITTNEY Routine 08/02/2020 5:45 AM EDT 08/02/2020 09:45:00 AM EDT [facility] LEUKOCYTE ASSMT FECAL QUAL/SEMIQUANTITATIVE FECAL LEUKOCYTES Ro utine 08/02/2020 5:45 AM EDT 08/02/2020 09:45:00 AM EDT [facility] PROTHROMBIN TIME PROTHROMBIN TIME NO THERAPY OR UNKNOWN Routine 08/02/2020 5:30 AM EDT 08/02/2020 09:30:00 AM EDT [facility] BLOOD COUNT COMPLETE AUTO&AUTO DIFRNTL WBC COUNT HC CBC W/ DIFFERENTIAL Routine 08/02/2020 5:30 AM EDT 08/02/2020 09:30:00 AM EDT [facility] COMPREHENSIVE METABOLIC PANEL COMPREHENSIVE METABOLIC PANEL Rou la nena 08/02/2020 5:30 AM EDT 08/02/2020 09:30:00 AM EDT [facility] HC SARS-COV-2 COVID-19 AMP PRB HC SARS-COV-2 COVID-19 AMP PRB S TAT 08/01/2020 2:10 PM EDT 08/01/2020 06:10:00 PM EDT [facility] PROLACTIN PROLACTIN STAT 08/01/2020 7:49 AM EDT 08/01/2020 11:49:00 AM EDT [facility] LIPASE LIPASE Routine 08/01/2020 7:49 AM EDT 08/01/20 20 11:49:00 AM EDT [facility] AMYLASE AMYLASE Routine 08/01/2020 7:49 AM EDT 020 11:49:00 AM EDT [facility] BLOOD COUNT COMPLETE AUTO&AUTO DIFRNTL WBC COUNT HC CBC W/ DIFF ERENTIAL STAT 07/31/2020 10:40 PM EDT 08/01/2020 02:40:00 AM EDT [facility] BASIC METABOLIC PANEL CALCIUM TOTAL BASIC METABOLIC PANEL STAT 07/31/2020 10:40 PM EDT 08/01/2020 02:40:00 AM EDT [facility] PROCALCITONIN TEST PROCALCITONIN TEST STAT 07/31/2020 3:58 PM E DT 07/31/2020 07:58:00 PM EDT [facility] BLOOD COUNT COMPLETE AUTO&AUTO DIFRNTL WBC COUNT HC CBC W/ DIFF ERENTIAL STAT 07/31/2020 3:58 PM EDT 07/31/2020 07:58:00 PM EDT [facility] C-REACTIVE PROTEIN C-REACTIVE PROTEIN STAT 07/31/2020 3:58 PM E DT 07/31/2020 07:58:00 PM EDT [facility] LIPASE LIPASE STAT 07/31/2020 3:58 PM EDT 07/31/20 20 07:58:00 PM EDT [facility] COMPREHENSIVE METABOLIC PANEL COMPREHENSIVE METABOLIC PANEL STA T 07/31/2020 3:58 PM EDT 07/31/2020 07:58:00 PM EDT [facility] POCT GLUCOSE, DOCKED POCT GLUCOSE, DOCKED Routine 11/02/2019 11:40 AM EST 11/02/2019 04:40:00 PM [facility] BASIC METABOLIC PANEL CALCIUM TOTAL BASIC METABOLIC PANEL STAT 11/02/2019 7:48 AM EST 11/02/2019 12:48:00 PM [facility] POCT GLUCOSE, DOCKED POCT GLUCOSE, DOCKED Routine 11/02/2019 7:42 AM EST 11/02/2019 12:42:00 PM [facility] BLOOD COUNT COMPLETE AUTO&AUTO DIFRNTL WBC COUNT CBC AND DIFFER ENTIAL Routine 11/02/2019 4:50 AM EST 11/02/2019 09:50:00 AM [facility] PHOSPHORUS INORGANIC PHOSPHORUS LEVEL Routine 11/02/2019 4:[address] 11/02/2019 09:50:00 AM [facility] MAGNESIUM MAGNESIUM LEVEL Routine 11/02/2019 4:50 AM EST 11/02/2019 09:50:00 AM [facility] BASIC METABOLIC PANEL CALCIUM TOTAL BASIC METABOLIC PANEL Routi ne 11/02/2019 4:50 AM EST 11/02/2019 09:50:00 AM [facility] POCT GLUCOSE, DOCKED POCT GLUCOSE, DOCKED Routine 11/02/2019 4:34 AM EST 11/02/2019 09:34:00 AM [facility] GLUCOSE QUANTITATIVE BLOOD XCPT REAGENT STRIP POCT GLUCOSE, DOC HECTOR Routine 11/01/2019 11:56 PM EST 11/02/2019 04:56:00 AM [facility] GLUCOSE QUANTITATIVE BLOOD XCPT REAGENT STRIP POCT GLUCOSE, DOC HECTOR Routine 11/01/2019 8:09 PM EST 11/02/2019 01:09:00 AM [facility] GLUCOSE QUANTITATIVE BLOOD XCPT REAGENT STRIP POCT GLUCOSE, SEBASTIEN YOUNG Routine 11/01/2019 4:23 PM EST 11/01/2019 09:23:00 PM [facility] GLUCOSE QUANTITATIVE BLOOD XCPT REAGENT STRIP POCT GLUCOSE, SEBASTIEN YOUNG Routine 11/01/2019 11:53 AM EST 11/01/2019 04:53:00 PM [facility] GLUCOSE QUANTITATIVE BLOOD XCPT REAGENT STRIP POCT GLUCOSE, SEBASTIEN YOUNG Routine 11/01/2019 8:04 AM EST 11/01/2019 01:04:00 PM [facility] GLUCOSE QUANTITATIVE BLOOD XCPT REAGENT STRIP POCT GLUCOSE, SEBASTIEN YOUNG Routine 11/01/2019 3:53 AM EST 11/01/2019 08:53:00 AM [facility] BLOOD COUNT COMPLETE AUTO&AUTO DIFRNTL WBC COUNT CBC AND DIFFER ENTIAL Routine 11/01/2019 3:47 AM EST 11/01/2019 08:47:00 AM [facility] PHOSPHORUS INORGANIC PHOSPHORUS LEVEL Routine 11/01/2019 3:[address] 11/01/2019 08:47:00 AM [facility] MAGNESIUM MAGNESIUM LEVEL Routine 11/01/2019 3:47 AM EST 11/01/2019 08:47:00 AM [facility] BASIC METABOLIC PANEL CALCIUM TOTAL BASIC METABOLIC PANEL Routi ne 11/01/2019 3:47 AM EST 11/01/2019 08:47:00 AM [facility] GLUCOSE QUANTITATIVE BLOOD XCPT REAGENT STRIP POCT GLUCOSE, SEBASTIEN YOUNG Routine 10/31/2019 10:22 PM EST 11/01/2019 03:22:00 AM [facility] GLUCOSE QUANTITATIVE BLOOD XCPT REAGENT STRIP POCT GLUCOSE, SEBASTIEN YUONG Routine 10/31/2019 4:14 PM EST 10/31/2019 09:14:00 PM [facility] GLUCOSE QUANTITATIVE BLOOD XCPT REAGENT STRIP POCT GLUCOSE, SEBASTIEN OYUNG Routine 10/31/2019 11:23 AM EST 10/31/2019 04:23:00 PM [facility] GLUCOSE QUANTITATIVE BLOOD XCPT REAGENT STRIP POCT GLUCOSE, SEBASTIEN YOUNG Routine 10/31/2019 8:05 AM EST 10/31/2019 01:05:00 PM [facility] GLUCOSE QUANTITATIVE BLOOD XCPT REAGENT STRIP POCT GLUCOSE, SEBASTIEN YOUNG Routine 10/31/2019 4:17 AM EST 10/31/2019 09:17:00 AM [facility] PHOSPHORUS INORGANIC PHOSPHORUS LEVEL Routine 10/31/2019 4:[address] 10/31/2019 09:11:00 AM [facility] MAGNESIUM MAGNESIUM LEVEL Routine 10/31/2019 4:11 AM EST 10/31/2019 09:11:00 AM [facility] CALCIUM IONIZED CALCIUM, IONIZED Routine 10/31/2019 4:11 AM EST 10/31/2019 09:11:00 AM [facility] BASIC METABOLIC PANEL CALCIUM TOTAL BASIC METABOLIC PANEL Routi ne 10/31/2019 4:11 AM EST 10/31/2019 09:11:00 AM [facility] GLUCOSE QUANTITATIVE BLOOD XCPT REAGENT STRIP POCT GLUCOSE, SEBASTIEN YOUNG Routine 10/30/2019 10:09 PM EST 10/31/2019 03:09:00 AM [facility] GLUCOSE QUANTITATIVE BLOOD XCPT REAGENT STRIP POCT GLUCOSE, SEBASTIEN YOUNG Routine 10/30/2019 6:52 PM EST 10/30/2019 11:52:00 PM [facility] RADEX GI TRACT UPPER W/WO DELAYED FILMS W/O KUB FLUORO UPPER GI SERIES Routine 10/30/2019 1:58 PM EST 10/30/2019 06:58:38 PM [facility] TRIGLYCERIDES TRIGLYCERIDES STAT 10/30/2019 12:33 PM EST 10/30/2019 05:33:00 PM [facility] PHOSPHORUS INORGANIC PHOSPHORUS LEVEL STAT 10/30/2019 12:[address] 10/30/2019 05:33:00 PM [facility] MAGNESIUM MAGNESIUM LEVEL STAT 10/30/2019 12:33 PM EST 10/30/2019 05:33:00 PM [facility] BASIC METABOLIC PANEL CALCIUM TOTAL BASIC METABOLIC PANEL STAT 10/30/2019 12:33 PM EST 10/30/2019 05:33:00 PM [facility] XR ABDOMEN AP ERECT ONLY [id number] XR ABDOMEN AP ERECT ONLY [id number] R outine 10/29/2019 10:57 AM EST Pain 10/29/2019 03:57:25 PM [facility] RADIOLOGY REPORT 10/29/2019 10:37 AM EST 10/29/2019 03:37:30 PM [facility] RADIOLOGY REPORT RADIOLOGY REPORT 10/29/2019 10:37 AM EST 10/29/2019 03:37:29 PM [facility] MRI SPINAL CANAL LUMBAR W/O &W/CONTR MATRL MR LUMBAR SPINE WITH AND WITHOUT CONTRAST [id number] Routine 10/28/2019 1:54 PM EST 10/28/2019 06:54:00 PM [facility] ECHO TTHRC R-T 2D W/WOM-MODE COMPL SPEC&COLR DOP ECHOCARDIO GRAM 2D COMPLETE Routine 10/28/2019 8:01 AM EST 10/28/2019 01:01:53 PM [facility] NATRIURETIC PEPTIDE PROBNP Routine 10/28/2019 6:39 AM EST 10/28/2019 11:39:00 AM [facility] IRON TOTAL FE BINDING CAPACITY Routine 10/28/2019 6:39 AM EST 10/28/2019 11:39:00 AM [facility] SEDIMENTATION RATE RBC AUTOMATED SEDIMENTATION RATE, AUTOMATED Routine 10/28/2019 6:39 AM EST 10/28/2019 11:39:00 AM [facility] BLOOD COUNT COMPLETE AUTOMATED CBC AND DIFFERENTIAL Routine 10/28/2019 6:39 AM EST 10/28/2019 11:39:00 AM [facility] C-REACTIVE PROTEIN C-REACTIVE PROTEIN Routine 10/28/2019 6:[address] 10/28/2019 11:39:00 AM [facility] PHOSPHORUS INORGANIC PHOSPHORUS LEVEL Routine 10/28/2019 6:[address] 10/28/2019 11:39:00 AM [facility] MAGNESIUM MAGNESIUM LEVEL Routine 10/28/2019 6:39 AM EST 10/28/2019 11:39:00 AM [facility] LACTATE LACTIC ACID LEVEL, PLASMA Routine 10/28/2019 6:39 AM EST 10/28/2019 11:39:00 AM [facility] FERRITIN FERRITIN LEVEL Routine 10/28/2019 6:39 AM EST 10/28/2019 11:39:00 AM [facility] COMPREHENSIVE METABOLIC PANEL COMPREHENSIVE METABOLIC PANEL Rou la nena 10/28/2019 6:39 AM EST 10/28/2019 11:39:00 AM [facility] CT ABDOEN & PELVIS W/CONTRAST MATERIAL CT ABDOMEN PELVIS WI TH CONTRAST [id number] STAT 10/28/2019 4:12 AM EST 10/28/2019 09:12:53 AM [facility] CULTURE BACTERIAL BLOOD AEROBIC W/ID ISOLATES BLOOD CULTURE R outine 10/28/2019 1:04 AM EST 10/28/2019 06:04:00 AM [facility] CULTURE BACTERIAL BLOOD AEROBIC W/ID ISOLATES BLOOD CULTURE R outine 10/28/2019 12:55 AM EST 10/28/2019 05:55:00 AM [facility] GLUCOSE QUANTITATIVE BLOOD XCPT REAGENT STRIP POCT GLUCOSE, DOC KED Routine 10/27/2019 11:39 PM EST 10/28/2019 04:39:00 AM [facility] URNLS DIP STICK/TABLET REAGENT AUTO MICROSCOPY URINALYSIS W ITH MICROSCOPIC Routine 10/27/2019 10:27 PM EST 10/28/2019 03:27:00 AM [facility] CULTURE BCT ISOL&PRSMPTV ID ISOLATE EA URINE URINE CULTURE Ro utine 10/27/2019 10:27 PM EST 10/28/2019 03:27:00 AM [facility] EKG- ALL NON MCR/TRI PAYERS 10/16/2019 12:00:00 AM EST [email or web address] ([facility]) BLOOD COUNT COMPLETE AUTO&AUTO DIFRNTL WBC COUNT CBC AND DIFFER ENTIAL Routine 10/01/2019 3:22 AM EST 10/01/2019 08:22:00 AM [facility] PHOSPHORUS INORGANIC PHOSPHORUS LEVEL Routine 10/01/2019 3:[address] 10/01/2019 08:22:00 AM [facility] MAGNESIUM MAGNESIUM LEVEL Routine 10/01/2019 3:22 AM EST 10/01/2019 08:22:00 AM [facility] HEPATIC FUNCTION PANEL HEPATIC FUNCTION PANEL A Routine 10/01/2019 3:22 AM EST 10/01/2019 08:22:00 AM [facility] BASIC METABOLIC PANEL CALCIUM TOTAL BASIC METABOLIC PANEL Routi ne 10/01/2019 3:22 AM EST 10/01/2019 08:22:00 AM [facility] PREALBUMIN PREALBUMIN Routine 09/30/2019 10:20 AM EST 09/30/2019 03:20:00 PM [facility] BLOOD COUNT COMPLETE AUTO&AUTO DIFRNTL WBC COUNT CBC AND DIFFER ENTIAL Routine 09/30/2019 3:31 AM EST 09/30/2019 08:31:00 AM [facility] PREALBUMIN PREALBUMIN Routine 09/30/2019 3:31 AM EST 09/30/2019 08:31:00 AM [facility] PHOSPHORUS INORGANIC PHOSPHORUS LEVEL Routine 09/30/2019 3:[address] 09/30/2019 08:31:00 AM [facility] MAGNESIUM MAGNESIUM LEVEL Routine 09/30/2019 3:31 AM EST 09/30/2019 08:31:00 AM [facility] HEPATIC FUNCTION PANEL HEPATIC FUNCTION PANEL A Routine 09/30/2019 3:31 AM EST 09/30/2019 08:31:00 AM [facility] BASIC METABOLIC PANEL CALCIUM TOTAL BASIC METABOLIC PANEL Routi ne 09/30/2019 3:31 AM EST 09/30/2019 08:31:00 AM [facility] PHOSPHORUS INORGANIC PHOSPHORUS LEVEL Routine 09/29/2019 5:[address] 09/29/2019 10:38:00 PM [facility] BLOOD COUNT COMPLETE AUTO&AUTO DIFRNTL WBC COUNT CBC AND DIFFER ENTIAL Timed 09/29/2019 8:26 AM EST 09/29/2019 01:26:00 PM [facility] TROPONIN QUANTITATIVE TROPONIN T Timed 09/29/2019 8:26 AM EST 09/29/2019 01:26:00 PM [facility] PHOSPHORUS INORGANIC PHOSPHORUS LEVEL Routine 09/29/2019 5:[address] 09/29/2019 10:36:00 AM [facility] MAGNESIUM MAGNESIUM LEVEL Routine 09/29/2019 5:36 AM EST 09/29/2019 10:36:00 AM [facility] HEPATIC FUNCTION PANEL HEPATIC FUNCTION PANEL A Routine 09/29/2019 5:36 AM EST 09/29/2019 10:36:00 AM [facility] BASIC METABOLIC PANEL CALCIUM TOTAL BASIC METABOLIC PANEL Routi ne 09/29/2019 5:36 AM EST 09/29/2019 10:36:00 AM [facility] BLOOD COUNT COMPLETE AUTO&AUTO DIFRNTL WBC COUNT CBC AND DIFFER ENTIAL Timed 09/29/2019 12:03 AM EST 09/29/2019 05:03:00 AM [facility] TROPONIN QUANTITATIVE TROPONIN T Timed 09/29/2019 12:03 AM EST 09/29/2019 05:03:00 AM [facility] BLOOD COUNT COMPLETE AUTO&AUTO DIFRNTL WBC COUNT CBC AND DIFFER ENTIAL Timed 09/28/2019 3:55 PM EST 09/28/2019 08:55:00 PM [facility] TROPONIN QUANTITATIVE TROPONIN T Timed 09/28/2019 3:55 PM EST 09/28/2019 08:55:00 PM [facility] BLOOD COUNT COMPLETE AUTO&AUTO DIFRNTL WBC COUNT CBC AND DIFFER ENTIAL Timed 09/28/2019 12:28 PM EST 09/28/2019 05:28:00 PM [facility] EKG 12-LEAD - CMAXX REPORT EKG 12-LEAD - CMAXX REPORT 09/28/2019 10:58 AM EST 09/28/2019 03:58:00 PM [facility] EKG 12-LEAD - CMAXX REPORT EKG 12-LEAD - CMAXX REPORT 09/28/2019 10:58 AM EST 09/28/2019 03:58:00 PM [facility] EKG 12-LEAD EKG 12-LEAD Routine 09/28/2019 10:58 AM EST 09/28/2019 03:58:00 PM [facility] TROPONIN QUANTITATIVE TROPONIN T Timed 09/28/2019 8:51 AM EST 09/28/2019 01:51:00 PM [facility] PHOSPHORUS INORGANIC PHOSPHORUS LEVEL Routine 09/28/2019 8:[address] 09/28/2019 01:51:00 PM [facility] MAGNESIUM MAGNESIUM LEVEL Routine 09/28/2019 8:51 AM EST 09/28/2019 01:51:00 PM [facility] BLOOD COUNT COMPLETE AUTO&AUTO DIFRNTL WBC COUNT CBC AND DIFFER ENTIAL Timed 09/28/2019 5:34 AM EST 09/28/2019 10:34:00 AM [facility] LIPASE LIPASE LEVEL Routine 09/28/2019 5:34 AM EST 09/28/2019 10:34:00 AM [facility] HEPATIC FUNCTION PANEL HEPATIC FUNCTION PANEL A Routine 09/28/2019 5:34 AM EST 09/28/2019 10:34:00 AM [facility] BASIC METABOLIC PANEL CALCIUM TOTAL BASIC METABOLIC PANEL Timed 09/28/2019 5:34 AM EST 09/28/2019 10:34:00 AM [facility] BLOOD COUNT COMPLETE AUTO&AUTO DIFRNTL WBC COUNT CBC AND DIFFER ENTIAL Timed 09/28/2019 12:42 AM EST 09/28/2019 05:42:00 AM [facility] TROPONIN QUANTITATIVE TROPONIN T Timed 09/28/2019 12:42 AM EST 09/28/2019 05:42:00 AM [facility] BASIC METABOLIC PANEL CALCIUM TOTAL BASIC METABOLIC PANEL Timed 09/28/2019 12:42 AM EST 09/28/2019 05:42:00 AM [facility] UPPER GI ENDOSCOPY W/CONTROL, BLEEDING, ANY METHOD UP PER GI ENDOSCOPY W/CONTROL, BLEEDING, ANY METHOD 09/27/2019 9:02 PM [facility] GI bleed 09/28/2019 02:02:00 AM [facility] - 09/28/2019 02:37:00 AM [facility] THROMBOPLASTIN TIME PARTIAL PLASMA/WHOLE BLOOD PARTIA L THROMBOPLASTIN TIME (PTT) Routine 09/27/2019 7:00 PM EST 09/28/2019 12:00 :00 AM [facility] PROTHROMBIN TIME PROTIME INR Routine 09/27/2019 7:00 PM EST 09/28/2019 12:00:00 AM [facility] BLOOD COUNT COMPLETE AUTOMATED CBC AND DIFFERENTIAL Timed 09/27/2019 7:00 PM EST 09/28/2019 12:00:00 AM [facility] BASIC METABOLIC PANEL CALCIUM TOTAL BASIC METABOLIC PANEL Timed 09/27/2019 7:00 PM EST 09/28/2019 12:00:00 AM [facility] GLUCOSE QUANTITATIVE BLOOD XCPT REAGENT STRIP POCT GLUCOSE, DOC KED Routine 09/27/2019 6:17 PM EST 09/27/2019 11:17:00 PM [facility] Plain chest X-ray (procedure) 09/27/2019 12:00:[address] [facility] CT Abd/pel w/o contrast 09/27/2019 12:00:00 AM [facility] Plain chest X-ray (procedure) 09/27/2019 12:00:00 AM [facility] CT Abd/pel w/o contrast 09/27/2019 12:00:00 AM [facility] Plain chest X-ray (procedure) 09/27/2019 12:00:00 AM E [facility] CT Abd/pel w/o contrast 09/27/2019 12:00:00 AM [facility] POCT GLUCOSE, DOCKED POCT GLUCOSE, DOCKED Routine 09/11/2019 7:59 AM EST 09/11/2019 12:59:00 PM [facility] BLOOD COUNT COMPLETE AUTO&AUTO DIFRNTL WBC COUNT CBC AND DIFFER ENTIAL Routine 09/11/2019 5:02 AM EST 09/11/2019 10:02:00 AM [facility] PHOSPHORUS INORGANIC PHOSPHORUS LEVEL Routine 09/11/2019 5:[address] 09/11/2019 10:02:00 AM [facility] MAGNESIUM MAGNESIUM LEVEL Routine 09/11/2019 5:02 AM EST 09/11/2019 10:02:00 AM [facility] BASIC METABOLIC PANEL CALCIUM TOTAL BASIC METABOLIC PANEL Routi ne 09/11/2019 5:02 AM EST 09/11/2019 10:02:00 AM [facility] POCT GLUCOSE, DOCKED POCT GLUCOSE, DOCKED Routine 09/10/2019 11:51 PM EST 09/11/2019 04:51:00 AM [facility] GLUCOSE QUANTITATIVE BLOOD XCPT REAGENT STRIP POCT GLUCOSE, DOC KED Routine 09/10/2019 4:05 PM EST 09/10/2019 09:05:00 PM [facility] GLUCOSE QUANTITATIVE BLOOD XCPT REAGENT STRIP POCT GLUCOSE, DOC KED Routine 09/10/2019 7:48 AM EST 09/10/2019 12:48:00 PM [facility] BLOOD COUNT COMPLETE AUTO&AUTO DIFRNTL WBC COUNT CBC AND DIFFER ENTIAL Routine 09/10/2019 5:00 AM EST 09/10/2019 10:00:00 AM [facility] PHOSPHORUS INORGANIC PHOSPHORUS LEVEL Routine 09/10/2019 5:[address] 09/10/2019 10:00:00 AM [facility] MAGNESIUM MAGNESIUM LEVEL Routine 09/10/2019 5:00 AM EST 09/10/2019 10:00:00 AM [facility] BASIC METABOLIC PANEL CALCIUM TOTAL BASIC METABOLIC PANEL Routi ne 09/10/2019 5:00 AM EST 09/10/2019 10:00:00 AM [facility] GLUCOSE QUANTITATIVE BLOOD XCPT REAGENT STRIP POCT GLUCOSE, DOC KED Routine 09/10/2019 12:11 AM EST 09/10/2019 05:11:00 AM [facility] GLUCOSE QUANTITATIVE BLOOD XCPT REAGENT STRIP POCT GLUCOSE, DOC KED Routine 09/09/2019 4:13 PM EST 09/09/2019 09:13:00 PM [facility] GLUCOSE QUANTITATIVE BLOOD XCPT REAGENT STRIP POCT GLUCOSE, DOC KED Routine 09/09/2019 8:03 AM EST 09/09/2019 01:03:00 PM [facility] BLOOD COUNT COMPLETE AUTO&AUTO DIFRNTL WBC COUNT CBC AND DIFFER ENTIAL Routine 09/09/2019 3:55 AM EST 09/09/2019 08:55:00 AM [facility] PHOSPHORUS INORGANIC PHOSPHORUS LEVEL Routine 09/09/2019 3:[address] 09/09/2019 08:55:00 AM [facility] MAGNESIUM MAGNESIUM LEVEL Routine 09/09/2019 3:55 AM EST 09/09/2019 08:55:00 AM [facility] BASIC METABOLIC PANEL CALCIUM TOTAL BASIC METABOLIC PANEL Routi ne 09/09/2019 3:55 AM EST 09/09/2019 08:55:00 AM [facility] GLUCOSE QUANTITATIVE BLOOD XCPT REAGENT STRIP POCT GLUCOSE, DOC KED Routine 09/08/2019 4:09 PM EST 09/08/2019 09:09:00 PM [facility] Results ID Date Data Source [id number] 10/27/2020 05:39:50 PM EST [facility] Name Value Range Interpretation Code Description Data Sumaya rce(s) Supporting Document(s) POC GLUCOSE 136 mg/dL (70-99) H [facility] PERFORMED BY CLINICAL STAFF ID Date Data Source [id number] 10/26/2020 03:09:05 PM EST [facility] Name Value Range Interpretation Code Description Data Sumaya rce(s) Supporting Document(s) LIPASE 128 U/L (65-230) [facility] ID Date Data Source [id number] 10/26/2020 03:09:05 PM EST [facility] Name Value Range Interpretation Code Description Data Sumaya rce(s) Supporting Document(s) SODIUM 137 mmol/L (136-145) [facility] POTASSIUM 4.2 mmol/L (3.6-5.2) [facility] CHLORIDE 102 mmol/L (100-108) [facility] CO2 26 mmol/L (22-31) [facility] ANION GAP 9 mmol/L (7-16) [facility] UREA NITROGEN 9 mg/dL (7-24) [facility] CREATININE 0.77 mg/dL (0.60-1.00) [facility] BUN/CREAT RATIO 11.7 RATIO (10.0-20.0) [facility] GLUCOSE 149 mg/dL (70-99) H [facility] CALCIUM 9.6 mg/dL (8.4-10.2) [facility] TOTAL PROTEIN 6.8 g/dL (6.4-8.2) [facility] ALBUMIN 4.1 g/dL (3.5-4.6) [facility] GLOBULIN 2.7 g/dL (2.7-4.3) [facility] ALB/GLOB RATIO 1.5 RATIO [facility] ALKALINE PHOSPHATASE 100 U/L (45-117) [facility] BILIRUBIN,TOTAL 0.5 mg/dL (0.0-1.0) [facility] PLEASE NOTE:Total bilirubin results may be falselyelevated in patients taking Eltrombopag. AST (SGOT) 12 U/L (11-39) [facility] ALT (SGPT) 43 U/L (12-78) [facility] GFR >60 ml/min/1.73m2 (>59) [facility] GFR ( AMER) >60 ml/min/1.73m2 (>59) [facility] GFR INTERPRETATION [facility] --NORMAL KIDNEY FUNCTION OR MILD DISEASE - GFR >OR= 60CHRONIC KIDNEY DISEASE - GFR 15 - 59RENAL FAILURE - GFR <15 Est. GFR calculation based on the MDRDstudy equation, which assumes a steadystate for creatinine. Est. GFR should notbe used for medication dosing. ID Date Data Source [id number] 10/26/2020 02:38:18 PM EST [facility] Name Value Range Interpretation Code Description Data Sumaya rce(s) Supporting Document(s) WBC 10.7 10*3/uL (4.1-11.0) [facility] RBC 4.45 10*6/uL (4.00-5.40) [facility] HGB 12.0 g/dL (12.0-16.0) [facility] HCT 36.1 % (36.0-47.0) [facility] MCV 81.1 fL (80.0-95.0) [facility] MCH 26.9 pg (27.0-32.0) L [facility] MCHC 33.2 g/dL (32.0-36.0) [facility] RDW 21.1 % (10.5-14.5) H [facility] PLT 328 10*3/uL (150-450) [facility] MPV 8.2 fL (7.1-10.7) [facility] ID Date Data Source [id number] 10/26/2020 02:37:23 PM EST [facility] Name Value Range Interpretation Code Description Data Sumaya rce(s) Supporting Document(s) PT 10.5 s (9.2-11.9) [facility] INR 1.00 [facility] SUGGESTED THERAPEUTIC RANGES USING INR F ORSTABILIZED ANTICOAGULATED PATIENTS:STANDARD DOSE THERAPY INR 2.0-3.0 DVT, PE, PREVENT DVT OR EMBOLISMHIGH DOSE THERAPY INR 2.5-3.5 PREVENT EMBOLISM FROM MECHANICAL HEART VALVE ID Date Data Source [id number] 10/26/2020 11:19:25 AM EST [facility] Name Value Range Interpretation Code Description Data Sumaya rce(s) Supporting Document(s) POC GLUCOSE 172 mg/dL (70-99) H [facility] PERFORMED BY CLINICAL STAFF ID Date Data Source [id number] 10/26/2020 10:12:41 AM EST [facility] Name Value Range Interpretation Code Description Data Sumaya rce(s) Supporting Document(s) PT H [facility] DISREGARD RESULTSPOSSIBLE CONTAMINATION/ SUGGEST RECOLLECTION OF SAMPLENOTIFIED MARIPOSA 6S ON 10/26/19 AT 1008 BY [id number] on 10/26 AT 1012: Previously reported as 14.5 INR [facility] DISREGARD RESULTSPOSSIBLE CONTAMINATION/ SUGGEST RECOLLECTION OF SAMPLECorrected on 10/26 AT 1012: Previously reported as 1.41 SUGGESTED THERAPEUTIC RANGES USING INR FOR STABILIZED ANTICOAGULATED PATIENTS: STANDARD DOSE THERAPY INR 2.0 3.0 DVT, PE, PREVENT DVT OR EMBOLISM HIGH DOSE THERAPY INR2.5 3.5 PREVENT EMBOLISM FROM MECHANICAL HEART VALVE ID Date Data Source [id number] 10/27/2020 01:28:15 PM EST [facility] Name Value Range Interpretation Code Description Data Sumaya rce(s) Supporting Document(s) SARS COV2 SOURCE [facility] SARS COV 2 BY PCR [facility] Not Detected INTERPRETIVE INFORMATION: S [...] In compliance with this authorization, please visit [email or web address] for more information and to access the [...] collection, transport, storage, and handling. Performed by [facility], [address] [place] [address],[place] [address] [email or web address], Kirti Noriega MD, Lab. Director ID Date Data Source [id number] 10/25/2020 09:15:00 AM EST [facility] Name Value Range Interpretation Code Description Data Sumaya rce(s) Supporting Document(s) SARS-CoV-2 by FAN Not Detected [facility] This lab was ordered by [facility] and reported by [facility]. ID Date Data Source [id number] 10/23/2020 04:46:00 PM EST [facility] DATE OF EXAM: 10/23/2020Upper GI SINGLE Contr W Sm Bowel INDICATION: NAUSEA / VOMITING TECHNIQUE: Single contrast upper GI Study with small bowel follow- through was performed via injection of 50 mL Omnipaque 300 contrast through the patient's indwelling jejunostomy tube. Lead Developer images were obtained. Fluoroscopy Time: 0.5 minutes.Number of images: 10 COMPARISON: CT abdomen pelvis 10/17/2020. FINDINGS: Single AP view interior plant caretaker image of the abdomen was obtained. Fusion [...] obstruction or volvulus. Professional interpretation performed at [facility] .End of diagnostic report for accession: [id number] Interpreted: Luna Lay MDTranscribed: 10/23/2020 04:43 PMSigned: 10/23/2020 04:46 PM Luna Lay MD -- MR N: [id number] [facility] ACC # [id number] BILL # [id number] Name Value Range Interpretation Code Description Data Sumaya rce(s) Supporting Document(s) ID Date Data Source [id number] 10/22/2020 06:27:08 PM EST [facility] Name Value Range Interpretation Code Description Data Sumaya rce(s) Supporting Document(s) COLOR [facility] APPEARANCE [facility] SPEC GRAV URINE 1.002 (1.003-1.030) L [facility] PH URINE 6.5 (5.0-7.5) [facility] LEUK ESTERASE (NEG) [facility] NITRITE URINE (NEG) [facility] PROTEIN URINE (NEG) A [facility] GLUCOSE URINE (NEG) [facility] KETONE URINE (NEG) [facility] UROBILINOGEN 0.2 mg/dL (0-1.0) [facility] BILIRUBIN URINE (NEG) [facility] BLOOD/HGB URINE 3+ (NEG) A [facility] URINE WBC (0-5) [facility] URINE RBC (0-2) [facility] EPITHELIAL CELLS 1+ [HPF] [facility] ID Date Data Source [id number] 10/22/2020 09:20:55 AM EST [facility] Name Value Range Interpretation Code Description Data Sumaya rce(s) Supporting Document(s) SODIUM 141 mmol/L (136-145) [facility] POTASSIUM 4.3 mmol/L (3.6-5.2) [facility] CHLORIDE 109 mmol/L (100-108) H [facility] CO2 26 mmol/L (22-31) [facility] ANION GAP 6 mmol/L (7-16) L [facility] UREA NITROGEN 16 mg/dL (7-24) [facility] CREATININE 0.72 mg/dL (0.60-1.00) [facility] BUN/CREAT RATIO 22.2 RATIO (10.0-20.0) H [facility] GLUCOSE 100 mg/dL (70-99) H [facility] CALCIUM 8.2 mg/dL (8.4-10.2) L [facility] TOTAL PROTEIN 5.8 g/dL (6.4-8.2) L [facility] ALBUMIN 3.3 g/dL (3.5-4.6) L [facility] GLOBULIN 2.5 g/dL (2.7-4.3) L [facility] ALB/GLOB RATIO 1.3 RATIO [facility] ALKALINE PHOSPHATASE 81 U/L (45-117) [facility] BILIRUBIN,TOTAL 0.6 mg/dL (0.0-1.0) [facility] PLEASE NOTE:Total bilirubin results may be falselyelevated in patients taking Eltrombopag. AST (SGOT) 31 U/L (11-39) [facility] ALT (SGPT) 61 U/L (12-78) [facility] GFR >60 ml/min/1.73m2 (>59) [facility] GFR ( AMER) >60 ml/min/1.73m2 (>59) [facility] GFR INTERPRETATION [facility] --NORMAL KIDNEY FUNCTION OR MILD DISEASE - GFR >OR= 60CHRONIC KIDNEY DISEASE - GFR 15 - 59RENAL FAILURE - GFR <15 Est. GFR calculation based on the MDRDstudy equation, which assumes a steadystate for creatinine. Est. GFR should notbe used for medication dosing. ID Date Data Source [id number] 10/22/2020 08:52:14 AM EST [facility] Name Value Range Interpretation Code Description Data Sumaya rce(s) Supporting Document(s) WBC 3.9 10*3/uL (4.1-11.0) L [facility] [place] RBC 3.83 10*6/uL (4.00-5.40) [facility] HGB 10.5 g/dL (12.0-16.0) [facility] HCT 31.6 % (36.0-47.0) [facility] MCV 82.4 fL (80.0-95.0) [facility] MCH 27.3 pg (27.0-32.0) [facility] MCHC 33.1 g/dL (32.0-36.0) [facility] RDW 21.4 % (10.5-14.5) H [facility] PLT 235 10*3/uL (150-450) [facility] MPV 8.4 fL (7.1-10.7) [facility] NEUT % 64.0 % (35.0-75.0) [facility] LYMPH % 17.5 % (16.0-52.0) [facility] MONO % 12.2 % (0.0-8.0) H [facility] EOS % 5.7 % (0.0-5.0) [facility] BASO % 0.6 % (0.0-4.0) [facility] NEUT # 2.5 10*3/uL (1.8-7.7) [facility] LYMPH # 0.7 10*3/uL (1.2-4.8) L [facility] MONO # 0.5 10*3/uL (0.0-0.8) [facility] Eosinophils [#/volume] in Blood by Automated count 0.2 10*3/uL (0.0-0 .5) [facility] BASO # 0.0 10*3/uL (0.0-0.2) [facility] ID Date Data Source [id number] 10/21/2020 07:56:18 AM EST [facility] Name Value Range Interpretation Code Description Data Sumaya rce(s) Supporting Document(s) MAGNESIUM 2.3 mg/dL (1.7-2.4) [facility] ID Date Data Source [id number] 10/21/2020 07:56:18 AM EST [facility] Name Value Range Interpretation Code Description Data Sumaya rce(s) Supporting Document(s) PHOSPHORUS 3.8 mg/dL (2.5-4.5) [facility] ID Date Data Source [id number] 10/21/2020 07:56:18 AM EST [facility] Name Value Range Interpretation Code Description Data Sumaya rce(s) Supporting Document(s) SODIUM 142 mmol/L (136-145) [facility] POTASSIUM 4.5 mmol/L (3.6-5.2) [facility] CHLORIDE 113 mmol/L (100-108) H [facility] CO2 24 mmol/L (22-31) [facility] ANION GAP 5 mmol/L (7-16) L [facility] UREA NITROGEN 20 mg/dL (7-24) [facility] CREATININE 0.64 mg/dL (0.60-1.00) [facility] BUN/CREAT RATIO 31.3 RATIO (10.0-20.0) [facility] GLUCOSE 146 mg/dL (70-99) H [facility] CALCIUM 7.8 mg/dL (8.4-10.2) L [facility] TOTAL PROTEIN 5.0 g/dL (6.4-8.2) L [facility] ALBUMIN 2.8 g/dL (3.5-4.6) L [facility] GLOBULIN 2.2 g/dL (2.7-4.3) L [facility] ALB/GLOB RATIO 1.3 RATIO [facility] ALKALINE PHOSPHATASE 70 U/L (45-117) [facility] BILIRUBIN,TOTAL 0.4 mg/dL (0.0-1.0) [facility] PLEASE NOTE:Total bilirubin results may be falselyelevated in patients taking Eltrombopag. AST (SGOT) 30 U/L (11-39) [facility] ALT (SGPT) 62 U/L (12-78) [facility] GFR >60 ml/min/1.73m2 (>59) [facility] GFR ( AMER) >60 ml/min/1.73m2 (>59) [facility] GFR INTERPRETATION [facility] --NORMAL KIDNEY FUNCTION OR MILD DISEASE - GFR >OR= 60CHRONIC KIDNEY DISEASE - GFR 15 - 59RENAL FAILURE - GFR <15 Est. GFR calculation based on the MDRDstudy equation, which assumes a steadystate for creatinine. Est. GFR should notbe used for medication dosing. ID Date Data Source [id number] 10/21/2020 07:34:07 AM EST [facility] Name Value Range Interpretation Code Description Data Sumaya rce(s) Supporting Document(s) WBC 4.1 10*3/uL (4.1-11.0) [facility] [place] RBC 3.97 10*6/uL (4.00-5.40) L [facility] HGB 10.7 g/dL (12.0-16.0) L [facility] HCT 32.9 % (36.0-47.0) L [facility] MCV 82.7 fL (80.0-95.0) [facility] MCH 27.0 pg (27.0-32.0) [facility] MCHC 32.6 g/dL (32.0-36.0) [facility] RDW 21.7 % (10.5-14.5) H [facility] PLT 251 10*3/uL (150-450) [facility] MPV 8.1 fL (7.1-10.7) [facility] ID Date Data Source [id number] 10/24/2020 03:48:21 PM EST [facility] [address] [address]Sna# SURGICAL PATHOLOGY REPORTPatient Name:NI DIAZ:1980Received:10/20/2020Accession #:[id number](s) [...] Out By Moises Song M.D. jzwPathology Associates [place], [place] [address]Technical component performed at [facility], Histopathology, [address] [place] [address], [address].Reported at [facility], [address] [place] [address], [facility].This report may include immunohistochemical or in-situ hybridizationresults. Testing was developed and the performance characteristicsdetermined by [facility], as required byCLIA '88. The FDA has determined that approval for spec [facility] use is notnecessary for clinical use. The quality of Hematoxylin and Eosin stainsand as applicable, for all immunohistochemical and/or special stains,including positive and negative controls, were reviewed and consideredappropriate.ICD codes: Z98.84CPT4 codes: A: 92526C Name Value Range Interpretation Code Description Data Sumaya rce(s) Supporting Document(s) ID Date Data Source [id number] 10/21/2020 10:09:00 AM [place], [place] [address]PATIENT NAME: COREY DIAZ OF : 1980REPORT: OPERATIONPATIENT NUMBER: [id number] STATUS: IPMEDICAL RECORD NUMBER: [id number] OF ADMISSION: 10/17/2020DATE OF DISCHARGE:ROOM: 00DATE OF [...] for quite sometime. [facility]been [facility]. Ultimately, thepatient decided to follow with Dr. Durbin *------* at the [facility] where she underwent a reversal of her gastric bypass, resection ofa portion of her Nadege limb, and jejunostomy tube. The patient now presentsto the hospital with continued persistent abdominal pain, nausea, andvomiting. CT scan done elsewhere at [facility] showed no acutefindings suggestive of the cause [...] Son, MDDictated: 10/20/2020 14:29DT: 10/20/2020 14:37Job #: [id number]: [facility] computer generated reports are not confirmed orauthenticated unless they are signed by the providerElectronically Authenticated by:ADRIAN SON MD On 10/21/2020 10:09 AM EST Name Value Range Interpretation Code Description Data Sumaya rce(s) Supporting Document(s) ID Date Data Source [id number] 10/25/2020 02:42:50 AM EST [facility] Name Value Range Interpretation Code Description Data Sumaya rce(s) Supporting Document(s) SARS COV2 SOURCE [facility] SARS COV 2 BY PCR [facility] Not Detected INTERPRETIVE INFORMATION: S ARS-CoV-2 [...] In compliance with this authorization, please visit [email or web address] for more information and to access the [...] collection, transport, storage, and handling. Performed by [facility], Formerly named [facility] [place] [address] [email or web address], Kirti Noriega MD, Lab. Director ID Date Data Source [id number] 10/19/2020 10:23:00 AM [facility] [address] [place] [address] PHONE: [phone] FAX: [phone] Name .................. : BASILIO Torres Acct Number.................. : [id number] ROOM. ................. : TR-03 MR Number ................... : [id number] Stay type ............. : E/R Discharge Date......... ... : Admit Date ......... : 10/17/20 Admit Phys .................... : [facility] Date of ....... : 1980 Family Phys ................... : TAJKHOI MELCHOR Phone .................. : [phone] Age ................................ : 40 Film# .................. .:[id number] Sex ................................. : F Unsigned transcriptions are preliminary reports and do not represent a medical or legal document CT ABD & PELVIS W/ IV ONLY [id number] COMPLETE:10/17/20 13:33 KJE 1023 Reason(s): right sided [...] mL Isovue 370 Page 1 of 2 [facility] [address] [place] [address] PHONE: [phone] FAX: [phone] Name .................. : BASILIO Torres Acct Number.................. : [id number] ROOM. ................. : TR-03 MR Number ................... : [id number] Stay type ............. : E/R Discharge Date......... ... : Admit Date ......... : 10/17/20 Admit Phys .................... : LORI Date of ....... : 1980 Family Phys ................... : MITA ROCHE Phone .................. : [phone] Age ................................ : 40 Film# .................. .:[id number] Sex ................................. : F Unsigned transcriptions are preliminary reports and do not represent a medical or legal document CT ABD & PELVIS W/ IV ONLY [id number] COMPLETE:10/17/20 13:33 KJE 1023 Reason(s): right sided [...] rce(s) Supporting Document(s) ID Date Data Source [id number] 10/19/2020 08:58:00 AM EST [facility] DATE OF EXAM: 10/19/2020CHEST RADIOGRAPH [...] reaching mid SVC. Professional interpretation performed at [facility] .End of diagnostic report for accession: [id number] Interpreted: Carmen Frank DOTranscribed: 10/19/2020 08:57 AMSigned: 10/19/2020 08:58 AM Carmen Frank DO [facility] # [id number] [facility] # [id number] Name Value Range Interpretation Code Description Data Sumaya rce(s) Supporting Document(s) ID Date Data Source [id number] 10/19/2020 08:14:00 [place] [address] RESPIRATORY CARE REPORT ==== ---------NAME------- NUMBER SEX AGE ADMIT DISC. XRAY# F/C ANGELAJOE Torres [id number] F 40 10/17/20 10/17/20 [id number] E/R DATE OF : 1980 M/R# [id number] #: [id number] TR-03 LOCATION: EMERGENCY DEPT EKG [id number] COMP LETE:10/18/20 06:37 ED [address] PHYSICIAN: LORI Name Value Range Interpretation Code Description Data Sumaya rce(s) Supporting Document(s) ID Date Data Source [id number] 10/19/2020 08:09:00 AM EST [facility] Name Value Range Interpretation Code Description Data Sumaya rce(s) Supporting Document(s) SARS-CoV-2 by FAN WALLS This lab was ordered by [facility] and reported by [facility]. ID Date Data Source [id number] 10/19/2020 06:44:48 AM EST [facility] Name Value Range Interpretation Code Description Data Sumaya rce(s) Supporting Document(s) MAGNESIUM 2.0 mg/dL (1.7-2.4) [facility] ID Date Data Source [id number] 10/19/2020 06:44:48 AM EST [facility] Name Value Range Interpretation Code Description Data Sumaya rce(s) Supporting Document(s) SODIUM 137 mmol/L (136-145) [facility] POTASSIUM 4.4 mmol/L (3.6-5.2) [facility] CHLORIDE 104 mmol/L (100-108) [facility] CO2 25 mmol/L (22-31) [facility] ANION GAP 8 mmol/L (7-16) [facility] UREA NITROGEN 8 mg/dL (7-24) [facility] CREATININE 0.54 mg/dL (0.60-1.00) L [facility] BUN/CREAT RATIO 14.8 RATIO (10.0-20.0) [facility] GLUCOSE 115 mg/dL (70-99) H [facility] CALCIUM 8.7 mg/dL (8.4-10.2) [facility] GFR >60 ml/min/1.73m2 (>59) [facility] GFR ( AMER) >60 ml/min/1.73m2 (>59) [facility] GFR INTERPRETATION [facility] --NORMAL KIDNEY FUNCTION OR MILD DISEASE - GFR >OR= 60CHRONIC KIDNEY DISEASE - GFR 15 - 59RENAL FAILURE - GFR <15 Est. GFR calculation based on the MDRDstudy equation, which assumes a steadystate for creatinine. Est. GFR should notbe used for medication dosing. ID Date Data Source [id number] 10/19/2020 06:29:46 AM EST [facility] Name Value Range Interpretation Code Description Data Usmaya rce(s) Supporting Document(s) WBC 6.5 10*3/uL (4.1-11.0) [facility] [place] RBC 3.88 10*6/uL (4.00-5.40) L [facility] HGB 10.5 g/dL (12.0-16.0) L [facility] HCT 31.7 % (36.0-47.0) L [facility] MCV 81.5 fL (80.0-95.0) [facility] MCH 27.1 pg (27.0-32.0) [facility] MCHC 33.3 g/dL (32.0-36.0) [facility] RDW 21.7 % (10.5-14.5) H [facility] PLT 271 10*3/uL (150-450) [facility] MPV 7.7 fL (7.1-10.7) [facility] NEUT % 79.8 % (35.0-75.0) H [facility] LYMPH % 8.8 % (16.0-52.0) L [facility] MONO % 11.1 % (0.0-8.0) H [facility] EOS % 0.0 % (0.0-5.0) [facility] BASO % 0.3 % (0.0-4.0) [facility] NEUT # 5.2 10*3/uL (1.8-7.7) [facility] LYMPH # 0.6 10*3/uL (1.2-4.8) L [facility] MONO # 0.7 10*3/uL (0.0-0.8) [facility] Eosinophils [#/volume] in Blood by Automated count 0.0 10*3/uL (0.0-0 .5) [facility] BASO # 0.0 10*3/uL (0.0-0.2) [facility] ID Date Data Source [id number] 10/18/2020 05:15:45 AM EST [facility] Name Value Range Interpretation Code Description Data Sumaya rce(s) Supporting Document(s) SODIUM 144 mmol/L (136-145) [facility] POTASSIUM 3.1 mmol/L (3.6-5.2) L [facility] CHLORIDE 111 mmol/L (100-108) H [facility] CO2 23 mmol/L (22-31) [facility] ANION GAP 10 mmol/L (7-16) [facility] UREA NITROGEN 12 mg/dL (7-24) [facility] CREATININE 0.57 mg/dL (0.60-1.00) L [facility] BUN/CREAT RATIO 21.1 RATIO (10.0-20.0) H [facility] GLUCOSE 142 mg/dL (70-99) H [facility] CALCIUM 9.0 mg/dL (8.4-10.2) [facility] TOTAL PROTEIN 6.3 g/dL (6.4-8.2) L [facility] ALBUMIN 3.8 g/dL (3.5-4.6) [facility] GLOBULIN 2.5 g/dL (2.7-4.3) L [facility] ALB/GLOB RATIO 1.5 RATIO [facility] ALKALINE PHOSPHATASE 89 U/L (45-117) [facility] BILIRUBIN,TOTAL 0.5 mg/dL (0.0-1.0) [facility] PLEASE NOTE:Total bilirubin results may be falselyelevated in patients taking Eltrombopag. AST (SGOT) 9 U/L (11-39) L [facility] ALT (SGPT) 23 U/L (12-78) [facility] GFR >60 ml/min/1.73m2 (>59) [facility] GFR ( AMER) >60 ml/min/1.73m2 (>59) [facility] GFR INTERPRETATION [facility] --NORMAL KIDNEY FUNCTION OR MILD DISEASE - GFR >OR= 60CHRONIC KIDNEY DISEASE - GFR 15 - 59RENAL FAILURE - GFR <15 Est. GFR calculation based on the MDRDstudy equation, which assumes a steadystate for creatinine. Est. GFR should notbe used for medication dosing. ID Date Data Source [id number] 10/18/2020 04:51:03 AM EST [facility] Name Value Range Interpretation Code Description Data Sumaya rce(s) Supporting Document(s) WBC 16.6 10*3/uL (4.1-11.0) H [facility] RBC 4.24 10*6/uL (4.00-5.40) [facility] HGB 11.1 g/dL (12.0-16.0) L [facility] HCT 34.6 % (36.0-47.0) L [facility] MCV 81.7 fL (80.0-95.0) [facility] MCH 26.2 pg (27.0-32.0) L [facility] MCHC 32.1 g/dL (32.0-36.0) [facility] RDW 22.3 % (10.5-14.5) H [facility] PLT 380 10*3/uL (150-450) [facility] MPV 7.1 fL (7.1-10.7) [facility] ID Date Data Source [id number] 10/23/2020 11:53:50 AM EST [facility] SPECIMEN DESCRIPTION PERIPHERALSP ECIAL REQUESTS NONECULTURE RESULTS NO GROWTH 6 DAYSREPORT STATUS FINAL 10/23/2020 Name Value Range Interpretation Code Description Data Sumaya rce(s) Supporting Document(s) ID Date Data Source [id number] 10/22/2020 11:49:00 AM [place] [id number] NAME: COREY DIAZ OF : 1980REPORT: ADMISSION NOTEPATIENT NUMBER: [id number] STATUS: IPMEDICAL RECORD NUMBER: [id number] OF ADMISSION: 10/17/2020ROOM: 00CHIEF COMPLAINT: Abdominal pain.HISTORY OF PRESENT ILLNESS: Ms. Diaz is a 40-year-old female withhistory of bariatric surgery 10 years back in [place], who hasmalabsorption syndrome since then, [facility] [...] present. Bowelsounds are present. No organomegaly appreciated. GALLERY OR MUSEUM GUIDE: Grossly intact. Moving all four limbs. Lymphatic system: No lymphadenopathy appreciated. Musculoskeletal system: Range of motion intact. No obvious deformitynoted.INVESTIGATIONS: CT of the abdomen and pelvis was [facility] at [facility]. Findings: Her lung bases are clear. Gallbladder [...] FREDERIC Danielsictated: 10/17/2020 22:06DT: 10/17/2020 22:14Job #: [id number]: Cait Wyatt MdNOTE: [facility] computer generated reports are notconfirmed or authenticated unless they are signed by the providerElectronically Authenticated by:MARY VERMA MD On 10/22/2020 11:49 AM EST Name Value Range Interpretation Code Description Data Sumaya rce(s) Supporting Document(s) ID Date Data Source [id number] 10/17/2020 11:18:00 AM EST [facility] 1 OrderSheet [facility] Emergency Department [address] [place] [address] Phone #: ext- [phone] 10/17/2020 11:14 Patient: [...] R.N. ;Lactic Acid STAT 13:57 10/17/2020 14:40 oLri Thomason Victoria Rachel R.N. ;Blood Culture STAT 13:57 10/17/2020 14:40 Paddy, 2 OrderSheet [facility] Emergency Department [address] [place] [address] Phone #: ext- [phone] 10/17/2020 11:14 Patient: NI DIAZ Sex: F : 1980 Age: 80lm37m X2 (Sched Marcelle Sandoval R.N.13:57 10/17/2020) ;Blood [...] HIGH Marcelle Sandoval R.N.ALERT ;MEDICATION,NOW) 3 OrderSheet [facility] Emergency Department [address] [place] [address] Phone #: ext- [phone] 10/17/2020 11:14 Patient: [...] 17:01 10/17/2020 Marcelle SandovalGENERAL ORDERS 4 OrderSheet [facility] Emergency Department [address] [place] [address] Phone #: ext- [phone] 10/17/2020 11:14 Patient: [...] rce(s) Supporting Document(s) ID Date Data Source [id number] 10/17/2020 11:18:00 AM EST [facility] 1 Medication Reconciliation Report [facility] Emergency Department [address] [place] [address] Phone #: ext- [phone] 10/17/2020 11:14 Patient: [...] gm, q4h, via J tube Creon Oral ([id number] unit) 1 capsule, 4x a day, J [...] administered: 11:48 10/17/2020 2 Medication Reconciliation Report [facility] Emergency Department [address] [place] [address] Phone #: ext- [phone] 10/17/2020 11:14 Patient: [...] rce(s) Supporting Document(s) ID Date Data Source [id number] 10/17/2020 11:18:00 AM EST [facility] 1 Medication Administration Record [facility] Emergency Department [address] [place] [address] Phone #: ext- [phone] 10/17/2020 11:14 Patient: NI DIAZ Sex: F : 1980 Age: 40yWeight: 69.8 kgHeight/Length: 67 inBMI: 24.1ALLERGIES: Levaquin, NSAID, Sulfa Antibiotics Date/Time Medication Administered Medication OrderedStart NS [IV] NS IV : Bolus 1000 mL, then 36284:55 10/17/2020 Dose: IV Fluids mL/hrMoises Thomason RCarmeloNCarmelo [...] IV NS 1000 mL Bolus : Bolus 504421:32 10/17/2020 Dose: IV Fluids mL (X1)Moises Thomason [...] #1 right chest 2 Medication Administration Record [facility] Emergency Department [address] [place] [address] Phone #: ext- [phone] 10/17/2020 11:14 Patient: NI DIAZ Sex: F : 1980 Age: 40yStart FLAGYL [IVPB] (METRONIDAZOLE IN Flagyl IVPB 500 mg/263tN45:12 10/17/2020 NACL)Moises Thomason RGuanakito Dose: 500 mg [...] rce(s) Supporting Document(s) ID Date Data Source [id number] 10/17/2020 11:18:00 AM EST [facility] 1 General Instructions [facility] Emergency Department [address] [place] [address] Phone #: ext- [phone] 10/17/2020 11:14 Patient: NI DIAZ Sex: F : 1980 Age: 40yAcute right lower quadrant abdominal pain of undetermined cause.Diarrhea.Abnormal tests; (elevated lactic acid).(Electronically signed by Marcelle Sandoval 10/17/2020 18:34) Name Value Range Interpretation Code Description Data Sumaya rce(s) Supporting Document(s) ID Date Data Source [id number] 10/17/2020 11:18:00 AM EST [facility] 1 Clinical Report - Nurses [facility] Emergency Department [address] [place] [address] Phone #: ext- [phone] 10/17/2020 11:14 Patient: [...] and has the urge but cannot go).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 (0800).SEPSIS SCREEN: SIRS SCREEN NEGATIVE. SEPSIS SCREEN NEGATIVE. No suspected or confirmedsigns of infection present. --11:24 10/17/20 Erika Gillis R.N.11:17 10/17/20. BP: 124/70. MAP: 88. HR: 50. RR: 12. O2 saturation: 100%. Temp: 98.3 F. Pain levelnow: 07/30. --11:24 10/17/20 Bryan, Erika, R.N.Treatment BOTANY TECHNICIAN:(zofran iv 1 hour ago). --11:10/17/20 Erika Gillis R.N.Weight: 69.8 kg stated. Height/Length: 67 inches Per Patient. BMI: 24.1. --11:15 10/17/20 Erika Gillis R.N.MedicationsAmbien Oral 7.5, daily as needed, at bedtime, via J tube. Benadryl IV 50mg QDAY for nausea, 2x a day. Carafate Oral 1 gm, q4h, via J tube. Creon Oral (Capsule Delayed Release Particles [id number] unit) 1 capsule, 4x a day, J [...] Gillis R.N. 2 Clinical Report - Nurses [facility] Emergency Department [address] [place] [address] Phone #: ext- [phone] 10/17/2020 11:14 Patient: [...] Gillis R.N.History 3 Clinical Report - Nurses [facility] Emergency Department [address] [place] [address] Phone #: ext- [phone] 10/17/2020 11:14 Patient: [...] To treatment room. --1110/17/20 Erika Gillis R.N.PHYSICAL [id number] 10/17/20. To room via stretcher.GENERAL / NEURO / PSYCH: Oriented X 4. Appears anxious. Decreased awareness (drowsy).HEENT: Mucous membranes are pink.RESPIRATORY: Respirations not labored. Breath sounds within normal limits.CVS: Cardiac rhythm: sinus bradycardia. Capillary refill less than 2 seconds.GI / : The patient has had nausea and diarrhea. Emesis noted. ( j tube present). 4 Clinical Report - Nurses [facility] Emergency Department [address] [place] [address] Phone #: ext- [phone] 10/17/2020 11:14 [id number] Sex: F : 1980 Age: 40y SKIN: [...] Thomason R.N. 13:04 10/17/20. Patient transported to [place] by stretcher with monitor, IV, mask, nurse and tech. --13:10/17/20 Moises Thomason R.N. 5 Clinical Report - Nurses [facility] Emergency Department [address] [place] [address] Phone #: ext- [phone] 10/17/2020 11:14 Patient: NI DIAZ Sex: F : 1980 Age: 40y13:14 10/17/20. Patient returned from [place] by stretcher with monitor, IV, mask, nurse [...] 10/17/20 Paddy, Nicolas Clinical Report - Nurses [facility] Emergency Department [address] [place] [address] Phone #: ext- [phone] 10/17/2020 11:14 Patient: [...] at departure: improved and stable. Transferred to [facility]. Report was given to a nurse [...] time: 17:38 10/17/2020. Transported via ambulance by business analytics intern with monitor, IV and mask. --17:38 10/17/20 Moises Thomason R.N. 12:40 10/17/2020 Offirmev IV Discontinued: bag #1 completed upon discharge. Total amount infused: 50 mL. IV patency established. IV site checked: no pain, redness, or swelling. IV flushed thoroughly. --17:40 10/17/20 Moises Thomason R.N. 7 Clinical Report - Nurses [facility] Emergency Department [address] [place] [address] Phone #: ext- [phone] 10/17/2020 11:14 Patient: [...] rce(s) Supporting Document(s) ID Date Data Source [id number] 10/17/2020 11:18:00 AM [facility] 1 Clinical Report - Physicians/Mid Levels [facility] Emergency Department [address] [place] [address] Phone #: ext- [phone] 10/17/2020 11:14 Patient: [...] Pain. 2 Clinical Report - Physicians/Mid Levels [facility] Emergency Department [address] [place] [address] Phone #: ext- [phone] 10/17/2020 11:14 Patient: NI DIAZ [facility]#: [id number] Sex: F : 1980 Age: 40y Additional [...] tube. Creon Oral (Capsule Delayed Release Particles [id number] unit) 1 capsule, 4x a day, J [...] F. 3 Clinical Report - Physicians/Mid Levels [facility] Emergency Department [address] [place] [address] Phone #: ext- [phone] 10/17/2020 11:14 [id number] Sex: F : 1980 Age: 40y Pain [...] DECISIONS. 4 Clinical Report - Physicians/Mid Levels [facility] Emergency Department [address] [place] [address] Phone #: ext- [phone] 10/17/2020 11:14 Patient: NI DIAZ Sex: F : 1980 Age: 40yLactic Acid: (LUISANA: 10/17/2020 14:38) ( MogRcvd 10/17/2020 15:25) Final results Test Result Flag Units (Reference) LACTIC ACID 2.7 H MMOL/L (0.2 - 2.2)CT Abd PEL W/ IV Contrast Only: (LUISANA: 10/17/2020 11:45) ( MsgRcvd 10/17/2020 14:08) In ProgressCT ABDReason(s): right sided abdominal painTRANSPORTATION: S IV? IV?(Yes) O2? Oxygen?(No) Ro Exam CT ABD //T// PELVIS W/ [place] [address] PHONE: [phone] FAX: [phone] Name .................. : BASILIO Torres Acct N umber.................. : [id number] ROOM. ................. : TR-03 MR Number ................... : [id number] Stay type ............. : E/R Discharge Date......... ... : Admit Date ......... : 10/17/20 Admit Phys .................... : LORI Date of ....... : 1980 Family Phys ................... : MITA ROCHE Phone .................. : [phone] Age ................................ : 40 Film# .................. .:[id number] Sex ................................. : F Unsigned transcriptions are [...] 370 [id number] Clinical Report - Physicians/Mid Levels [facility] Emergency Department [address] [place] [address] Phone #: ext- [phone] 10/17/2020 11:14 Patient: NI DIAZ Sex: F : 1980 Age: 40y Page 1of 2 [place] [address] PHONE: [phone] FAX: [phone] Name .................. : BASILIO Torres Acct Number.................. : [id number] ROOM. ................. : TR-03 MR Number ................... : [id number] Stay type ............. : E/R Discharge Date......... ... : Admit Date ......... : 10/17/20 Admit Phys .................... : LORI Date of ....... : 1980 Family Phys ................... : MITA ROCHE Phone .................. : [phone] Age ................................ : 40 Film# .................. .:[id number] Sex ................................. : F Unsigned transcriptions are preliminary reports and do not represent a medical or legal document CT ABD Reason(s): right sided abdominal pain Method of administration: Intravenous Examination dictated by TROY Cross. Examination was reviewed with Kaden Carrillo MD, radiologist at the time of this dictation. Electronically Reviewed and Signed By DCTNAME , SIGNDATE, KGG Transcribe Initials: [facility], Transcribe Date: 10/17/20 13:56, Dictation Date: <<REPDIST>> Page 2of 2Lactic Acid: (LUISANA: 10/17/2020 12:05) ( [facility] 10/17/2020 12:43) Final results Test Result Flag Units (Reference) LACTIC ACID 2.3 H MMOL/L (0.2 - 2.2)CBC w Diff: (LUISANA: 10/17/2020 12:05) ( [facility] 10/17/2020 12:15) Final results Test Result Flag Units (Reference) CBC W/AUTOMATED DIFF COMPLETE BLOOD COUNT WBC 11.0 10/uL (4.2 - 11.0) RBC 5.07 10/uL (4.20 - 5.40) HEMOGLOBIN 13.4 g/dL (12.0 - 16.0) HEMATOCRIT 41.6 % (37.0 - 47.0) MCV 82.1 fL (81.0 - 101) 6 Clinical Report - Physicians/Mid Levels [facility] Emergency Department [address] [place] [address] Phone #: ext- [phone] 10/17/2020 11:14 Patient: [...] Male GFR Interprentation 20-49 yrs >60 mL/min Bofjec96-28 yrs >56 mL/min Normal 60-69 yrs >49 mL/min Normal 70-79yrs>42 mL/min Normal 80 and above >35 mL/min Normal Female GFRInterpretation 20-39 yrs >60 mL/min Normal 40-49 yrs >58 mL/minNormal 50-59 yrs >51 mL/min Normal 60-69 yrs >45 mL/min Umrdda36-91 yrs >39 mL/min Normal 80 and above >32 mL/min NormalLipase: (LUISANA: 10/17/2020 12:05) ( MsgRcvd 10/17/2020 12:42) Final results Test Result Flag Units (Reference) LIPASE 29 U/L (13 - 60) 7 Clinical Report - Physicians/Mid Levels [facility] Emergency Department [address] [place] [address] Phone #: ext- [phone] 10/17/2020 11:14 Patient: NI DIAZ [facility]#: [id number] Sex: F : 1980 Age: 40y Urinalysis: (LUISANA: 10/17/2020 14:20) ( [facility] 10/17/2020 15:09) Final results Test Result Flag [...] Beta-HCG, Qual Serum: (LUISANA: 10/17/2020 12:05) ( [facility] 10/17/2020 12:29) Final results Test Result Flag Units (Reference) HCG SERUM QUAL NEGATIVE (NORMAL: NEGAT HCG SERUM QL REENTER NEGATIVE (NORMAL: NEGAT { KIT LOT # [id number] ){ KIT EXP DATE 844346 ){ PROCEDURAL CONTROL VALID ) PT/INR: (LUISANA: 10/17/2020 12:05) ( [facility] 10/17/2020 12:23) Final results Test Result Flag Units (Reference) PROTIME 12.7 SECONDS (11.0 - 15.5) INR 0.91 L (0.93 - 1.23) \\BLDo\\INR INTERPRETATION\\BLDx\\ Therapeutic range for Coumadin and related oral anticoagulants. - International Normalized Ratio (INR): 2.0 - 3.0 for Venous Thrombosis, Pulmonary Embolus, Tissue heart valves, Acute NH, Atrial Fibrillation, Valvular heart disease and recurrent Systemic Embolism. -International Normalized Ratio (INR): 2.5 - 3.5 for M echanical Prosthetic valve. Amylase: (LUISANA: 10/17/2020 12:05) ( MogRcvd 10/17/2020 12:42) Final results Test Result Flag Units (Reference) AMYLASE 67 U/L (30 - 110) Abdomen Multiview: (LUISANA: 10/17/2020 11:31) ( MogRcvd 10/17/2020 11:45) Canceled Reason(s): hx of bowel resection Reason(s): hx of bowel resection TRANSPORTATION: S IV? O2? Oxygen?(No) Room: ED. 8 Clinical Report - Physicians/Mid Levels [facility] Emergency Department [address] [place] [address] Phone #: ext- [phone] 10/17/2020 11:14 Patient: [...] another hospital 16:27 10/17/20. discussed case with [facility], DR Clark who accepted the [...] to transfer explained to patient. Transferred to [facility]. 16:30. UTI (catheter associated) was not [...] 10/17/2020 18:34) 9Clinical Report - Physicians/Mid Levels [facility] Emergency Department [address] [place] [address] Phone #: ext- [phone] 10/17/2020 11:14 Patient: NI ARORA Sex: F : 1980 Age: 40y Name Value Range Interpretation Code Description Data Sumaya rce(s) Supporting Document(s) ID Date Data Source [id number] 10/17/2020 04:52:39 PM [facility] Name Value Range Interpretation Code Description Data Sumaya rce(s) Supporting Document(s) Progress Note [facility] BTIISd0qLgDMInOq49/GNTwnUOPpg3TmHNtmTYf5YHyeBUCsM2NzMPK8iO7bTYR3CZfXIrHzMnDdSiC4 lbm [file] ICAgICAgICAgICAgICAgICAgICAgICAgICAgICAgICAgICAgICAgICAgICAgICAgICAgICAgICAgICAg VPQhDULrTQTySLIqWDOcBBLrMV6VTKOvDDOzTGYeIUQlXKWzPLQjGFBxIZAkQFPaYOOyBBDyOZHpVRUh ICAgICAgICAgICAgICAgICAgICAgICAgICAgICAgIC IbUZNvQMQgNAHdHJFlJADhUPQdBNUnDNOxJSXjBJ7UTHZpVXLtXJWjSYVjUVCgVBWmUVIgNPHbJHDhOQ AgICAgICAgICAgICAgICAgICAgICAgICAgICAgICAgICAgICAgICAgICAgICAgICAgICAgICAgICAgIC GpSQMqYDBiOIAcPB6KIAEaIUWsAFGcUOHvKPBuQIVi ICAgICAgICAgICAgICAgICAgICAgICAgICAgICAgICAgICAgICAgICAgICAgICAgICAgICAgICAgICAg YHTaAUEfTEWzCTRyTMAsYTHoAPGuKQ2OCNSpKKSqOOWfSEOpIXUaNFPvDKQkSWFwNGUgDDTjKVQzTJKb ICAgICAgICAgICAgICAgICAgICAgICAgICAgICAgIC FyFWIwXQFmANFnPOSkDBVoIIHtEEBlHGEfPKPsSFYxUB4UFOFsRRHcSOBsVLNvQJVeRSObLVYmMBCeBK AgICAgICAgICAgICAgICAgICAgICAgICAgICAgICAgICAgICAgICAgICAgICAgICAgICAgICAgICAgIC NhZHJiPVGfZOCvPOTbTP4OUXZpYRNhXDZmTWAiGQKa ICAgICAgICAgICAgICAgICAgICAgICAgICAgICAgICAgICAgICAgICAgICAgICAgICAgICAgICAgICAg NHIsRQGlRLAeSSCdVVPkOFBuNCKbBVNqJP2ZGRCwNXQjNKUcDPFbMXOtBABsHSPtZUZbJAOoPUOeBRNd ICAgICAgICAgICAgICAgICAgICAgICAgICAgICAgIC ZfFGQgCBKeLVSrGUJtKPFrMVOyIJRnGMWoFWQlTCVxAXEqBK6FVFCsGNXbCUXrUZBsDIQoYFEvJSPhUK AgICAgICAgICAgICAgICAgICAgICAgICAgICAgICAgICAgICAgICAgICAgICAgICAgICAgICAgICAgIC JwJENqGOVoUZUkUEXvWTXdJF4CMEHqQQLeYIYkMEYv ICAgICAgICAgICAgICAgICAgICAgICAgICAgICAgICAgICAgICAgICAgICAgICAgICAgICAgICAgICAg NJRxLDDlLHWaLPOxPBYrKUVqKYTfCEKbXWImVD9DBA76kYUty8J9UXCxCA3grlu/Hg5PLUyyuhJeaLJo YQ9IDyXoMJ1yxe4EJfXqXP5vni5PDDkWMlQgF0Y7vW QzYKMcXMHNYsPyV31uIFrmPw30HKedNCFsGbIxPYf5Ye1TJuDlW6qeLFZtPaS6HQGzEgFpVLloJT8Uc6 VudCAxDQo+Sh9FEK1rg9TgRFtvWVLuJA6qhc9TUEdNViAxP5NserI3GGN3IZOgNs0BKAWnNRHaiYLzAY JcAJVOPyNrM2XyyG61TGCJBe7+DQplbmRvYmoNCjE1 RLMqn3VnKJb2EY4JSPCjTOf5sXGqUPFgF9Fht0IhFa75ZEGxOkrvJJT8fbafoTIpT1OpqBY1YGRUXpLh uLYjRd1kQP1vOTYvAMEjRsI1LPZBOH4TMZOrBGOwbGXdLNQuOOPRMP1BDHhpJSR2UBOwmwPkbDEfJFlk FV4RIDWlttXtAFZyTWECCXm+Sn4GLX8ee1BcXManIr HkJL9xdh5RPCcDRmQaU8C1eDJqJ9A2NXytZx3ZYRKnYQCfEBJzENIKZTifDC3QDZ7xzvI2AZ2VhMIoZP NgZPQvpZXlJCk1H66clFTwTGphZW2WHDM+Savannah+Mp2IITGiDCDbHUUdWnVhHSFCIvLfR8JeY8TUi2WoV7 JnXS52cDdqfmFgOTkjNM7NMM4xCIVyLEOJPJ8KnAFo sZ6kkiFqBFFoKZOLUsHoN63csXBvKFBfGNXrWAQtWk6AKXYxI8TeiqJflWcogyHdFHEiREISYZ7YPTsv tjIoiFHzkGwrQL46fUkqSB1INh8WWcFqDR4ruq9UsYDjQv4ONQTfDi9ZFYTzCDGgHNCxOZP2XQGcQrTj YGtoFDXnZRZaVRJ7OGCvZKItVQ3WJzTvQYTuNZJ1Tv OtADFgFVXmvv5XCORzWBLeDyY8LJPjJYXrWFEkDDhpQGAyZRNcQBE7DUFsUGRzGF3MYeNtAJWcUFV1Qb EvXCSeWZYxtc5FTEHtSKBdJzZ6OINvAQMyOXGzTDoqCDAsSOJfZNV3XVVnZUJyWI2LElPdDOKcPPQxXc CkOETyLTEylk9XXQTbGMVvZbXsQUWzWICfROVuLKjf RDApBAQ8NvYqCBRcLHQvDJ6ZMiQlLETfSGQ8AoZaRVVhYPBlml4GUYQwGVWuXFr1RZCmKRVkRAAyBUiu YCDqATG0QYR7BFIkRCAqXE2GZyUpWNDxURZ3BENnCSCuGKEzhv5RYBBiMOVmEdV0ACXiRCBnMMSoHDwt HLNgNJG7UAD1YAPxSAMkOT6GHxUeALucCUOIVvo6IA uyJ7g7ZJWlKn3FL4Vga3FmTJQyFMRQWWpbLL4ylhCqMCLcNt4PU8bAXds5KFP9JoAeFlG9RhClROLwCQ arYACkBwSwWQRwMnIaQd4fDEn5CVqvF8HvDCBzA7IgN3J8PHOpUPSvYtT2YCDuXNU0QyAyTL0EQf9EMj O1BNN2yONiPv5GCiB6TH9INNGLV5SKQa== ID Date Data Source [id number] 10/17/2020 03:15:00 PM EST [facility] Name Value Range Interpretation Code Description Data Sumaya rce(s) Supporting Document(s) COVID-19 [facility] This lab was ordered by [facility] and reported by [facility]. ID Date Data Source [id number] 10/17/2020 03:15:00 PM EST [facility] Name Value Range Interpretation Code Description Data Sumaya rce(s) Supporting Document(s) COVID-19 [facility] ID Date Data Source [id number] 10/17/2020 03:49:00 PM EST [facility] Name Value Range Interpretation Code Description Data Sumaya rce(s) Supporting Document(s) COVID-19 NOT DETECTED [facility] COVID-19 REENTER NOT DETECTED [facility] { PROCEDURAL CONTROL VALID KIT LOT # [...] PATIENT MANAGEMENT DECISIONS. ID Date Data Source [id number] 10/17/2020 03:24:00 PM EST [facility] Name Value Range Interpretation Code Description Data Sumaya rce(s) Supporting Document(s) Lactate [Moles/volume] in Serum or Plasma 2.7 MMOL/L 0.2 - 2.2 H [facility] ID Date Data Source [id number] 10/17/2020 03:08:00 PM EST [facility] Name Value Range Interpretation Code Description Data Sumaya rce(s) Supporting Document(s) [facility] COL[facility] yellow NORMAL: Yellow [facility] CLARITY clear NORMAL: Clear [facility] Specific gravity of Urine by Test strip 1.010 1.001 - 1.030 [facility] pH 5 5 - 9 [facility] Glucose [Mass/volume] in Urine by Test strip NORM NORMAL: Negat [facility] Bilirubin.total [Presence] in Urine by Test strip NEG NORMAL: Negative [facility] Ketones [Presence] in Urine by Test strip 50 NORMAL: Negative [facility] Protein [Mass/volume] in Urine by Test strip 100 NORMAL: Negat [facility] Nitrite [Presence] in Urine by Test strip NEG NORMAL: Negative [facility] BLOOD NEG NORMAL: Negative [facility] Leukocyte esterase [Presence] in Urine by Test strip NEG DELANO L: Negative [facility] Urobilinogen [Mass/volume] in Urine by Test strip NOR less tenisha n 1.0 mg/dL [facility] MICROSCOPIC See Below [facility] ital WBC 1 - 3 NORMAL: NONE SEEN [facility] Erythrocytes [#/volume] in Urine by Test strip 1 - 3 NORMAL: NON E SEEN [facility] EPITHELIAL FEW NORMAL: NONE SEEN [facility] Bacteria [Presence] in Urine sediment by Light microscopy Tr nick NORMAL: NONE SEEN [facility] Mucus [Presence] in Urine sediment by Light microscopy Trace NORMAL: NONE SEEN [facility] ID Date Data Source [id number] 10/22/2020 06:11:00 PM EST [facility] [id number] Name Value Range Interpretation Code Description Data Sumaya rce(s) Supporting Document(s) Bacteria identified in Blood by Culture [facility] NO GROWTH AFTER 5 DAYS ID Date Data Source [id number] 10/23/2020 07:59:00 PM [facility] Name Value Range Interpretation Code Description Data Sumaya rce(s) Supporting Document(s) CULTURE BLOOD [facility] _CULTURE BLOOD_ [place] [address] CLIA# [id number] SEE SCANNED REPORT{ PRELIM ID Date Data Source [id number] 10/23/2020 07:59:00 PM [facility] Value Range Interpretation Code Description Data Sumaya rce(s) Supporting Document(s) CULTURE BLOOD [facility] _CULTURE BLOOD_ [place] [address] CLIA# [id number] SEE SCANNED REPORT{ PRELIM ID Date Data Source [id number] 10/17/2020 12:43:00 PM [facility] Value Range Interpretation Code Description Data Sumaya rce(s) Supporting Document(s) Lactate [Moles/volume] in Serum or Plasma 2.3 MMOL/L 0.2 - 2.2 H [facility] ID Date Data Source [id number] 10/17/2020 12:42:00 PM [facility] Value Range Interpretation Code Description Data Sumaya rce(s) Supporting Document(s) Amylase [Enzymatic activity/volume] in Serum or Plasma 67 U/L 30 - 110 [facility] ID Date Data Source [id number] 10/17/2020 12:42:00 PM [facility] Value Range Interpretation Code Description Data Sumaya rce(s) Supporting Document(s) Lipase [Enzymatic activity/volume] in Serum or Plasma 29 U/L 13 - 60 [facility] ID Date Data Source [id number] 10/17/2020 12:42:00 PM EST [facility] Value Range Interpretation Code Description Data Sumaya rce(s) Supporting Document(s) COMPREHENSIVE METABOLIC PANEL [facility] COMPREHENSIVE METABOLIC PANEL Sodium [Moles/volume] in Serum or Plasma 140 mEq/L 134 - 153 [facility] Potassium [Moles/volume] in Serum or Plasma 3.6 mEq/L 3.6 - 5.0 [facility] Chloride [Moles/volume] in Serum or Plasma 102 mEq/L 98 - 107 [facility] Carbon dioxide, total [Moles/volume] in Serum or Plasma 24 MEQ/L 22 - 30 [facility] Glucose [Mass/volume] in Serum or Plasma 197 MG/DL 65 - 110 H [facility] BUN 20 MG/DL 7 - 21 [facility] al Creatinine [Mass/volume] in Serum or Plasma 0.6 MG/DL 0.7 - 1.5 L [facility] BUN/CREAT 33 8 - 27 H [facility] al Protein [Mass/volume] in Serum or Plasma 7.7 G/DL 6.3 - 8.2 [facility] Albumin [Mass/volume] in Serum or Plasma 4.8 G/DL 3.9 - 5.0 [facility] Globulin [Mass/volume] in Serum by calculation 2.9 GM/DL 2.4 - 3.2 [facility] A/G RATIO 1.7 0.8 - 2.0 [facility] Calcium [Mass/volume] in Serum or Plasma 10.0 MG/DL 8.4 - 10.2 [facility] Bilirubin.total [Mass/volume] in Serum or Plasma <0.7 MG/DL 0.2 - 1.3 [facility] Alkaline phosphatase [Enzymatic activity/volume] in Serum or Plasma 114 U/L 38 - 126 [facility] Aspartate aminotransferase [Enzymatic activity/volume] in Serum or Plasma 19 U/L 5 - 40 [facility] Alanine aminotransferase [Enzymatic activity/volume] in Seru m or Plasma 22 U/L 7 - 56 [facility] Anion gap 3 in Serum or Plasma 14.0 mmol/L 8.0 - 16.0 [facility]GE 40 y[facility] GFR >60 mL/min [facility] ital AFR AMER GFR >60 mL/min [facility] spital Male GFR In terprentation 20-49 yrs [...] >32 mL/min Normal ID Date Data Source [id number] 10/17/2020 12:28:00 PM [facility] Name Value Range Interpretation Code Description Data Sumaya rce(s) Supporting Document(s) HCG SERUM QUAL NEGATIVE NORMAL: NEGATIVE [facility] HCG SERUM QL REENTER NEGATIVE NORMAL: NEGATIVE [facility] { KIT LOT # [id number] ){ KIT EXP DATE 488688 ){ PROCEDURAL CONTROL VALID ) ID Date Data Source [id number] 10/17/2020 12:23:00 PM [facility] Name Value Range Interpretation Code Description Data Sumaya rce(s) Supporting Document(s) Prothrombin time (PT) 12.7 SECONDS 11.0 - 15.5 [facility] INR in Platelet poor plasma by Coagulation assay 0.91 0.93 - 1. 23 L [facility] \\BLDo\\INR INTERPRETATION\\BLDx\\ Therapeutic range for Coumadin and related oral anticoagulants. - International Normalized Ratio (INR): 2.0 - 3.0 for Venous Thrombosis, Pulmonary Embolus, Tissue heart valves, Acute NH, Atrial Fibrillation, Valvular heart disease and recurrent Systemic Embolism. -International Normalized Ratio (INR): 2.5 - 3.5 for Mechanical Prosthetic valve. ID Date Data Source [id number] 10/17/2020 12:15:00 PM [facility] Name Value Range Interpretation Code Description Data Sumaya rce(s) Supporting Document(s) CBC W/AUTOMATED DIFF [facility] COMPLETE BLOOD COUNT Leukocytes [#/volume] in Blood by Automated count 11.0 10^3/uL 4.2 - 11.0 [facility] Erythrocytes [#/volume] in Blood by Automated count 5.07 10^6/uL 4. 20 - 5.40 [facility] Hemoglobin [Mass/volume] in Blood 13.4 g/dL 12.0 - 16.0 [facility] Hematocrit [Volume Fraction] of Blood by Automated count 41.6 % 3 7.0 - 47.0 [facility] Erythrocyte mean corpuscular volume [Entitic volume] by Auto mated count 82.1 fL 81.0 - 101 [facility] Erythrocyte mean corpuscular hemoglobin [Entitic mass] by Automated count 26.4 pg 27.0 - 34.0 L [facility] Erythrocyte mean corpuscular hemoglobin concentration [Mass/volume] by Automated count 32.2 g/dL 31.0 - 36.0 [facility] Erythrocyte distribution width [Ratio] by Automated count 19.3 % 11.5 - 14.5 H [facility] Platelets [#/volume] in Blood by Automated count 496 10^3/uL 150 - 45 0 H [facility] Platelet mean volume [Entitic volume] in Blood by Automated count 9.2 fL 7.4 - 10.4 [facility] Neutrophils/100 leukocytes in Blood by Automated count 92.0 % 37. 0 - 80.0 H [facility] Lymphocytes/100 leukocytes in Blood by Manual count 4.9 % 25.0 - 40.0 L [facility] Monocytes/100 leukocytes in Blood by Automated count 2.4 % 3.0 - 8.0 L [facility] Eosinophils/100 leukocytes in Blood by Automated count 0.0 % 0.0 - 7.0 [facility] Basophils/100 leukocytes in Blood by Automated count 0.3 % 0.0 - 2.5 [facility] %IG 0.4 % 0.0 - 0.0 H [facility] al %NRBC 0.0 % 0.0 - 0.0 [facility] al Neutrophils [#/volume] in Blood by Automated count 10.08 10^3/uL 2. 00 - 6.90 H [facility] Lymphocytes [#/volume] in Blood by Automated count 0.54 10^3/uL 0.60 - 3.40 L [facility] Monocytes [#/volume] in Blood by Automated count 0.26 10^3/uL 0.00 - 0.90 [facility] Eosinophils [#/volume] in Blood by Automated count 0.00 10^3/uL 0.00 - 0.70 [facility] Basophils [#/volume] in Blood by Automated count 0.03 10^3/uL 0.00 - 0.20 [facility] #IG 0.04 10^3/uL 0.00 - 0.10 [facility] #NRBC 0.00 10^3/uL 0.00 - 0.00 [facility] MANUAL DIFF NOT INDICATED [facility] RBC MORPH NOT INDICATED [facility] ID Date Data Source [id number] 10/09/2020 01:50:00 PM EST [facility] ([facility]) Name Value Range Interpretation Code Description Data Sumaya rce(s) Supporting Document(s) Inr 0.86 [facility] ([facility], [facility]) see progress note by Angelica Prothrombin Time 11.9 s 12.5-14.3 [facility] ([facility]) see progress note by Angelica ID Date Data Source [id number] 10/09/2020 01:50:00 PM EST [facility] ([facility]) Name Value Range Interpretation Code Description Data Sumaya rce(s) Supporting Document(s) Fibrin D-dimer FEU [Mass/volume] in Platelet poor plasma 368.43 ng/mL [facility] ([facility]) see progress note by Angelica ID Date Data Source [id number] 10/09/2020 01:50:00 PM EST [facility] ([facility]) Name Value Range Interpretation Code Description Data Sumaya rce(s) Supporting Document(s) Blood Culture Laboratory test result [facility] ([facility]) see progress note by Angelica ID Date Data Source [id number] 10/09/2020 01:50:00 PM EST [facility] ([facility]) Name Value Range Interpretation Code Description Data Sumaya rce(s) Supporting Document(s) Lactate [Mass/volume] in Serum or Plasma 1.7 mmol/L 0.4-2.0 [facility] ([facility]) see progress note by Angelica ID Date Data Source [id number] 10/09/2020 01:50:00 PM EST [facility] ([facility], [facility]) Name Value Range Interpretation Code Description Data Sumaya rce(s) Supporting Document(s) White Blood Count 5.4 10 4.0-10.0 [facility] ([facility], [facility]) see progress note by Angelica Red Blood Count 4.80 10 4.00-5.40 [facility] ([facility], [facility]) see progress note by Angelica Hemoglobin 12.1 g/dL 12.0-15.5 [facility] ([facility], [facility]) see progress note by Angelica Hematocrit 40.7 % 36.0-47.0 [facility] ([facility], [facility]) see progress note by Angelica Mean Corpuscular HGB Conc 29.7 g/dL 32.0-36.5 [facility] ([facility], [facility]) see progress note by Angelica Mean Corpuscular Volume 84.8 fl 80.0-96.0 M [facility] ([facility], [facility]) see progress note by Angelica Mean Corpuscular Hemoglobin 25.2 pg 27.0-33.0 [facility] ([facility], [facility]) see progress note by Angelica Red Cell Distribution Width 18.8 % 11.5-14.5 [facility] ([facility], [facility]) see progress note by Angelica Platelet Count, Automated 280 10 150-450 [facility] ([facility], [facility]) see progress note by Angelica Lymph % 19.3 % 24.0-44.0 [facility] ([facility], [facility]) see progress note by Angelica Neutrophils % 68.6 % 36.0-66.0 [facility] ([facility], [facility]) see progress note by Angelica [place] % 5.9 % 0.0-5.0 [facility] ([facility] [facility], [facility]) see progress note by Angelica Eos % 5.0 % 0.0-3.0 [facility] ([facility], [facility]) see progress note by Angelica Nucleated Red Blood Cell % 0.0 % 0-0 [facility] ([facility], [facility]) see progress note by Angelica Baso % 0.6 % 0.0-1.0 [facility] ([facility], [facility]) see progress note by Angelica Immature Granulocyte % 0.6 % 0-3.0 [facility] ([facility]) see progress note by Angelica Lymph # 1.1 10 1.5-5.0 MED[facility] ([facility], [facility]) see progress note by Angelica Neutrophils # 3.7 10 1.5-8.5 [facility] ([facility], [facility]) see progress note by Angelica Eos # 0.3 10 0.0-0.5 [facility] ([facility], [facility]) see progress note by Angelica Baso # 0.0 10 0.0-0.2 [facility] ([facility], [facility]) see progress note by Angelica [place] # 0.3 10 0.0-0.8 [facility] ([facility], [facility]) see progress note by Angelica ID Date Data Source [id number] 10/09/2020 01:50:00 PM EST [facility] ([facility]) Name Value Range Interpretation Code Description Data Sumaya rce(s) Supporting Document(s) Glucose, Fasting 95 mg/dL 70-100 [facility] ([facility]) see progress note by Angelica Blood Urea Nitrogen 5 mg/dL 7-18 [facility] ([facility]) see progress note by Angelica Creatinine For GFR 0.71 mg/dL 0.55-1.30 [facility] ([facility]) see progress note by Angelica Glomerular Filtration Rate Laboratory test result [facility] ([facility]) see progress note by Angelica Potassium Serum 4.1 meq/L 3.5-5.1 [facility] ([facility]) see progress note by Angelica Sodium Level 139 meq/L 136-145 [facility] ([facility]) see progress note by Angelica Anion Gap 5 meq/L 8-16 [facility] ([facility]) see progress note by Angelica Chloride Level 105 meq/L 98-107 [facility] ([facility]) see progress note by Angelica Carbon Dioxide Level 29 meq/L 21-32 [facility] ([facility]) see progress note by Angelica Ast/Sgot 37 U/L 7-37 [facility] ([facility]) see progress note by Angelica Calcium Level 9.1 mg/dL 8.5-10.1 [facility] ([facility]) see progress note by Angelica Bilirubin,Total 0.2 mg/dL 0.2-1.0 [facility] ([facility]) see progress note by Angelica Alkaline Phosphatase 156 U/L 45-117 [facility] ([facility]) see progress note by Angelica Alt/SGPT 50 U/L 12-78 [facility] ([facility]) see progress note by Angelica Albumin/Globulin Ratio 1.5 1.2-2.2 [facility] ([facility]) see progress note by Angelica Albumin 4.1 GM/DL 3.2-5.2 [facility] ([facility]) see progress note by Angelica Total Protein 6.9 GM/DL 6.4-8.2 [facility] ([facility]) see progress note by Angelica ID Date Data Source [id number] 10/09/2020 12:00:00 AM EST [facility] Name Value Range Interpretation Code Description Data Sumaya rce(s) Supporting Document(s) SARS coronavirus 2 Ag [facility] This lab was ordered by [facility] and reported by [facility]. ID Date Data Source [id number] 10/06/2020 11:11:15 AM EST [facility] Name Value Range Interpretation Code Description Data Sumaya rce(s) Supporting Document(s) Nursing Note [facility] HMRBSe2yYiZOFsDc58/EHHdaHSCrc2GjKYobSRj8MPgmUZXbO4NxJVG6xP5xLOR0OGcEGjRvTlIaPqE4 lbm [file] F0owKjELxlINJtCn6EYBSZY3JKYy== ID Date Data Source [id number] 08/26/2020 07:56:16 AM EST [facility] Name Value Range Interpretation Code Description Data Sumaya rce(s) Supporting Document(s) *Initial Consult Visit SAMUEL v1 [facility] JHCLPu7lFzSXWiCyn9mnKQgjYJBmf9CuKMr3SR0IC6Ueav7Qj7GqZKEwXCBOXHyuWDtfJCDdP5M2GPhj 1dH [file] 0EvihYnW30H1//m/205+U+umphJ7uPGzDGbbMBqD58ZplH9t4i/26bO7+/stunner and shackler/2p/1v76VWr4zYY+c9wX [file] lGAAEBAQBgAGAAAP/bAEMABAIDAwMCBAMDAwQEBAQF RPZLPZADImbQZymFKm2ZKVrAJL3CWEWGJlZQYOnJGJPETSFYSkdAICggNFDkJLPGFj/bAEMBBAQEBQUF MlSWZvZMLS6DFcVXBfYQWeNANtETXdFEIySAWuDVPkGIOaUNPfDDUuDNMePMCbXPFcLNUkUWIoUQLl/A TXLCLQGH5lDATnFRUEIWXSS/xAAfAAABBQEBAQEBAQ AAAAAAAAAAAQIDBAUGBwgJCgv/uKI9VOGDQOUMOmXHVWQXXPZZFD4JXtURZUSPYlNsSDCREVSVYnZMWw ROhNjzVaUBJYGH5OYgAqMTGZxOJvkHLlElAijjKsJ6Qob8KXlZQXUPJ9fTQvNPHVIQUBdpN7WpZoxerF yfdUK0e8z3fcRXmNuReQoKopJAbVlGtMjdxgDvpmyn uVdgwgZ8giu5tAb1hsRFyqcJvSdH1vBA9odE1Pqz3vJx4YZw8+kq7lDi4/T19vf4+fr/xAAfAQADAQEB AQEBAQEBAAAAAAAAAQIDBAUGBwgJCgv/hRT0KZYNUVTQBHVLVvPPDTIHDnvXZZUPVYXHYTTWInRYA1If PdJtpZcTTzXvflPVFoCU5ZSdbrWPOcD87TTgCoeOHa AjHTowLJN2KWr4F8PZHuqADLhFHTDXR0kHNsPwXDFxbCugf7C4qtt0gZhMk8XPtutKkObRp0KTqzfZiW owm8Vemchggclhn1L4mtj1uvpVe6BAglvZawtT71ZL1fuC8gcc0+Tg2ymi9kzz3/T19vf4+fr/2gAMAw EAAhEDEQA/DJsxRSAIHf9OljcbB/KnZB/LgK4zfpXN hh0dgsYGn2BO0Mu/HB4052qDf7oOe6I75uwkqFbjYSVXD6fN0E+ILDw/n5OX26iid5sspoKGi164Gfgc a9z+gGScAViw+FLnxHcpqnjU+WPItlMY2VuV50/jZY34B9EcziV2yw1D4f1yjq8ezTmXPAmT8LzjhYna 5yoV00EbJmq1lu4/oj41rSw3mCSSD/FSXNtqGlwgLF 8terywmzw0NbSCFhWUb17z0e8V6pLJ+A/XyB0KbCRJURwf3ZMZBI7cbV/Km4Pov/lBe8UF6SAHlxuA/I D2uWm5aOjeDgNSVVc+VL+ZNXNoHALJ6uBBFty2tmfPQwi+lMl8siEmuSQhZmLuoHjJECYJ/cDSuy4zRD wI5wv/MLbCsJg1T4EyEB92qaSsOkCeW4E+VKoHp+lK kSAFbC1bpiuBacYk66+TVtAuvpNH8O0Tgc1DxR9HLymf1itVtXCEWaJcmjcxvK4TLPtnViCOSgUzqAJK OvrPi2X+FWr0AWIxA1IrtmSgpgvJaCjbIBBqXh2hctSBHHj5Uz098ad2GJmK9BTHpho4Bp8XuNcryGrH LEP79dfTojxpcQryZuUbBpd22hM3Y9RhTLM6XdJCkM h6UraWwBTPpQyBBP9HMyCsWKo9k7D953PBC/h5GPdBXyq0yGu7tS88IH4bFv9pVmfX2yLARxpycVgEGX A4rq/toe laster+XzAb89t61q86trXG1U5/zstseoEqC5H3x4cI7rWtY947dc8L4pW1p1uf5qy+VLJPr5qitqF [file] fF0zmUND+healthcare sales representative+qfOXnymSlbCzq/dNc7+vS7T81/Aw8b [file] 3ZVOSTK3FERf== ID Date Data Source [id number] 08/04/2020 05:24:31 PM EDT [facility] Name Value Range Interpretation Code Description Data Sumaya rce(s) Supporting Document(s) Discharge Summary [facility] ZFTVWo1eTrRQFiIv81/NOVgbLTEwz0PzTKrrDBm7VVlkGYOhP2RuDHE0tX9kTUD7PLlYJfIxNwVxUCX9 lbm [file] AgICAgICAgICAgICAgICAgICAgICAgICAgICAgICAgICAgICAgICAgICAgICANCiAgICAgICAgICAgIC AgICAgICAgICAgICAgICAgICAgICAgICAgICAgICAg ICAgICAgICAgICAgICAgICAgICAgICAgICAgICAgICAgICAgICAgICAgICAgICAgICAgICAgICANCiAg ICAgICAgICAgICAgICAgICAgICAgICAgICAgICAgICAgICAgICAgICAgICAgICAgICAgICAgICAgICAg ICAgICAgICAgICAgICAgICAgICAgICAgICAgICAgIC AgICAgICANCiAgICAgICAgICAgICAgICAgICAgICAgICAgICAgICAgICAgICAgICAgICAgICAgICAgIC AgICAgICAgICAgICAgICAgICAgICAgICAgICAgICAgICAgICAgICAgICAgICAgICANCiAgICAgICAgIC AgICAgICAgICAgICAgICAgICAgICAgICAgICAgICAg ICAgICAgICAgICAgICAgICAgICAgICAgICAgICAgICAgICAgICAgICAgICAgICAgICAgICAgICAgICAN CiAgICAgICAgICAgICAgICAgICAgICAgICAgICAgICAgICAgICAgICAgICAgICAgICAgICAgICAgICAg ICAgICAgICAgICAgICAgICAgICAgICAgICAgICAgIC AgICAgICAgICANCiAgICAgICAgICAgICAgICAgICAgICAgICAgICAgICAgICAgICAgICAgICAgICAgIC AgICAgICAgICAgICAgICAgICAgICAgICAgICAgICAgICAgICAgICAgICAgICAgICAgICANCiAgICAgIC AgICAgICAgICAgICAgICAgICAgICAgICAgICAgICAg ICAgICAgICAgICAgICAgICAgICAgICAgICAgICAgICAgICAgICAgICAgICAgICAgICAgICAgICAgICAg ICANCiAgICAgICAgICAgICAgICAgICAgICAgICAgICAgICAgICAgICAgICAgICAgICAgICAgICAgICAg ICAgICAgICAgICAgICAgICAgICAgICAgICAgICAgIC AgICAgICAgICAgICANCiAgICAgICAgICAgICAgICAgICAgICAgICAgICAgICAgICAgICAgICAgICAgIC AgICAgICAgICAgICAgICAgICAgICAgICAgICAgICAgICAgICAgICAgICAgICAgICAgICAgICANCjw/eH PfO1motJSaeiG6U5ftTt0AKe4MDL8eb7GvHVQtMMye pzBlBcsQIdPoYWJaPckFPzq8SSzwNF4AsQWvW1WoO7GfAXapVE1DWSWdEITxoBVrQUJmJCMmKfN7FMOa AAhyQS8KyJEcQYdyGRDmATShKaRdLENkEYUgYFFdXZSvMCABHOTnNSStKcAmDRjdYV1Pb9AytLP1AWp+ Xy4MYD9wr8KfPCdyGPTbEM3udl6WIBbMIpBsW9Skui N6PMF2VRUpYe9UGXUuXKEpsBFqKRNpZVMBTnHrJ4WibO59UMVULh1+JOkykaInSevMSoP9XZJpo6BnEE v0FH5IKKQnRYg3qAXmHRnnU9yeyxhhVYR6kY9duuqhPmztPUhqfqZtFYCYBAnafvVdLY1RIZT6KABtSs V2FgOqYhDyPRT7NRUyGF2pKHduUU9AHOU8OUpaRXEq SSGvK7pALlGwTSnyWTLicItaIA8CVlNyJ1LlrvJwoLKvSOWcIYQCXz0+MJtvfjVtPwvWOvS4IVItg2Ll WUc6IP9RCFMeFZpkIM3EVNZyyG3wPIhgVX1VMyUqOdUoZQEPApTqQ73raCTuTMr7U5WqTlIzPJRyHycv ZXMgPDwvTmFtZXMgWyBdDQogID4+ID4+MTylJX9PBH dghvZlTSWsGt8BEUVeTAXrEL1wVQSnHGLzO0L2gTaqMPVRWvOuQ6irgikqOI8qTDHzS605wUpojhViFX Z6RLJnEv8GPCQhCZY3AUEvjHLmSaSzFWRZILkmZU4WhJJkPFM9tN2tGLmtMILwRUHxF6lGImNeoFcrLA 51bGwgbnVsbCBdDQo+Hq8KFE2ij8WuJEj6uhMvXGbj UYP8PZpeILJwYPQjHIBkQPD7RCS2DDWNApQkWKYtTYZvCXouNAWdBDAxyf8QDOCkGUWbQvV3DoVmALAk HHJsIBkhTJIqDAV5DMW2FEPuKXDyXR9VSrZrCFLnQIQxDWxvOOPyEVUxrr4PLRJtLSDvNqd4GrZhTDIl KUHwPZerAHJuZAHyFTG9MQYqHUGwYB1ICnSsEHZgBX H6DoSeUZFfXQTxdq4EYASsBXJzBwRmPKTiPOGaCFAqETbuYCLkSOCmYQK0JLGfDRNpCC7GObVcFMUuDT B1NFPfWUWuOOFkwa9HVHBgMQMgOtL0TyNdSCFtQQHcOTqcSGSpRGNnJdqgPPPeOMAyPJ3FTrTpUSEeSE QpOgVpWYUyOTGbyp1ZOAKgGJSfJYZsXzLaWUPeNGSl EJumYLDlLQK2MZj8WHRdMIFaXJ4NQcYwZDOoHPLnILclGXWdIYYjhi4NTSYxSKEgTjY7JZGlJRXxHTLb NPxqKHSaAQG7SOR2KMHaSEVcBP7QJtAqGEGiCQy4QISbJLUeWMJfgt1LOQLlHKSrPtyeQONwBUNfUZNd OUltXPQcKVO2TVsxKTBuRNFeLR4CPzBfVHBvFMuoDT BvOXCqQKFqxu6MKHChIQNxUJK1LYMwUEOdDSUbDDyuAQCzGEDtMjP4BJIhMEDsFU4IDeHxDSBmCxW9Sa XxQVUsMBHnpy6EMPTaVUEnNKVsWINzXOAnIGFrOYfbROWbYSMrGCtoJQSrFZEsEK5NDtTkIXLxBjG6XW FuGLWeRGHyoa2ODBNaNZLlLKx1DLLoVISiJCLdVDsl XBNyWOUfZPN4WZQuHBKjVV6BUhMfYUZcBuXpVGGxZSHrGEZtof1SLXCbMDKyAnVoEYMfVCZeKTMcAKaq BAPsCYWgHTJ5IZHqMATmJC0AUsJzVDTnSfVpIVAnPUVhNIOjwa4PBHEfFNXyLRT3UIAaFVGmFQZaOGjd EPFzRSI5WHA5VFEsHWNwKI6CWyIvPXchAAQWMbu8OD fcZ5b6DDTrYp3HV6Wrz3BiUtQsICXZNIbvVB4zcdJyKVYvTp6QN4uOHjwmVfrtLnI2BSF6ESHgNtlePp J0PdCnZGTnIDE0XzVhIF7eWAZ3NxY2XsJ3NJe4DBAlFaNxHecvZHT7QrM7MFSqBBRsMzJtOB6CJr9ILg O9GCL6bJIjEr0KJgK6JMqVEeHiIT6LQYw= ID Date Data Source [id number] 08/04/2020 12:01:45 PM EDT [facility] Name Value Range Interpretation Code Description Data Sumaya rce(s) Supporting Document(s) Progress Notes [facility] TZHULb2hNuIOVnFd27/UJEjwVEDzj4GoIEoeDRj2RLgnZDNhG6FtGEK3mZ9dXFG2EQtLYtTsEaYtQOS9 lbm [file] 0gDQo+Qo5Zj7ZxijN7fmSaAHwhSsH4QY3FUSQNU9PNPx== ID Date Data Source [id number] 08/04/2020 11:44:07 AM EDT [facility] Name Value Range Interpretation Code Description Data Sumaya rce(s) Supporting Document(s) Care Plan [facility] VTXLFi4zEaTBMrEh30/NTQloNZUhp0FxXQwjXVa2AEcwNZUmG5MsEHX5aU4rSXS1XZfHQkVjMcCcXNA3 lbm [file] ICAgICAgICAgICAgICAgICAgICAgICAgICAgICAgICAgICAgICAgICAgICAgICAgICAgICAgICAgICAg ICAgICAgICAgICANCiAgICAgICAgICAgICAgICAgICAgICAgICAgICAgICAgICAgICAgICAgICAgICAg ICAgICAgICAgICAgICAgICAgICAgICAgICAgICAgIC AgICAgICAgICAgICAgICAgICAgICANCiAgICAgICAgICAgICAgICAgICAgICAgICAgICAgICAgICAgIC AgICAgICAgICAgICAgICAgICAgICAgICAgICAgICAgICAgICAgICAgICAgICAgICAgICAgICAgICAgIC AgICANCiAgICAgICAgICAgICAgICAgICAgICAgICAg ICAgICAgICAgICAgICAgICAgICAgICAgICAgICAgICAgICAgICAgICAgICAgICAgICAgICAgICAgICAg ICAgICAgICAgICAgICANCiAgICAgICAgICAgICAgICAgICAgICAgICAgICAgICAgICAgICAgICAgICAg ICAgICAgICAgICAgICAgICAgICAgICAgICAgICAgIC AgICAgICAgICAgICAgICAgICAgICAgICANCiAgICAgICAgICAgICAgICAgICAgICAgICAgICAgICAgIC AgICAgICAgICAgICAgICAgICAgICAgICAgICAgICAgICAgICAgICAgICAgICAgICAgICAgICAgICAgIC AgICAgICANCiAgICAgICAgICAgICAgICAgICAgICAg ICAgICAgICAgICAgICAgICAgICAgICAgICAgICAgICAgICAgICAgICAgICAgICAgICAgICAgICAgICAg ICAgICAgICAgICAgICAgICANCiAgICAgICAgICAgICAgICAgICAgICAgICAgICAgICAgICAgICAgICAg ICAgICAgICAgICAgICAgICAgICAgICAgICAgICAgIC AgICAgICAgICAgICAgICAgICAgICAgICAgICANCiAgICAgICAgICAgICAgICAgICAgICAgICAgICAgIC AgICAgICAgICAgICAgICAgICAgICAgICAgICAgICAgICAgICAgICAgICAgICAgICAgICAgICAgICAgIC AgICAgICAgICANCiAgICAgICAgICAgICAgICAgICAg ICAgICAgICAgICAgICAgICAgICAgICAgICAgICAgICAgICAgICAgICAgICAgICAgICAgICAgICAgICAg ICAgICAgICAgICAgICAgICAgICANCjw/nWPqO6xgvIEnhnK9D9phLm2HMw7KRR3rm0KqWHZdYEcxxtEi QbmIChRfARXgEffMPon2ISplRY5KmVDfH9NvU2WrXF wsYB4WSNDjFDShfWAoMVZoEICmVdH7YDCgFEkdLB9JoAOmODulQRIgYEIbPE0GXQUfU662jvQfVO1ZIy 2GXiJvNR9stz5SFsIdVCTfUogMDww1GRejQQ9KbBWfuTHvJwFaVFBCTzSaV4aqg5YsChEvMYFUCUduEW 9My0IztRAyFUy+Eb7VBC2hv2HyUFpdGhVoHI0pxl4B LFaDFrDdF7YwvVstWVYoxeJpCNlbimUxbBDJKVUmdusaIZEXgbO7b3g9ITTEZyCrcTPfHJ1oMS4nWCIi YOEiMxSxQCETCB9YDMOxQHHsiKErWOJmSHIHPQ0WCEvqMHD1JlnoabAkfTLbAYgzAW4ZRYRufhApHtGj MCBSDQo+Jt5YLX8nx2FhFEjtZeFyLS9xfb1ZBRdPXa TeC5J5uCLgD5I3DBtsKb7DXAWlVZRoMaMvVAXBWWrtKH9EUL4yvzD9KI9EeALtHXNqAULjtSSqYOp5Q4 9zxWYuTRdrNU9OEPZ+Savannah+Iz3UGEDlBDTsREJjOjHrMBXAQoBcY7JlS2ISc4ZrR8IkOT49pUwiioYvDD lcNI7QII4tBBUjNSENCA2BwQAuoN3fifBjXJDsJZOB VhUfE79cvHFxSUGsLCZ4FMRkRh5TADBlG7AqpgOjsWhlmyYhLEVnUUACKH7BGXyhhgMfpATheKtgOQ83 pNmyXZ4WQp2HPtBfHF7cny6DcHYxAx2AIKRcED7XTODcJCRjJLTgAQT5KJNmIuRnFIfaCYBgHQLlJPB7 WMMyDEZxBI8EJiRaUCHaXyF6EEAbUTNgEHGfel9ULD PpBKVtNsL3DuFeXPIxUQAhEQikBEFbKNBfYRJ5KZAhKAFwVB1QFlOlACFsCHIlLXLcNIDfEZSpkr7IER MtAACsXaVeQwIfHLTbIXBhQEafZFZgWAOzZBF3QHJoJAQkCG7UBzJaZRJhNGHhRvDcXIYeVVMvly5SGS BeTONjLeB9BHKwUXOgYSFhCEboPTQwYKM3FQS4CMSx UDBjQL7SDuKnONOxHWX2GZSpXCRsYTPakh7HYLMwIMHnLNd8XSFsSXMzVMCcSMljOYIqGXS2RqR2IVSo IILtEJ5YVgAsTZXrALr5WAWcNBUbJIMipn1BABHrWEEcTau9YkBlPTCnMBNaFSjyJRDfFDD9FKBlFIYc BKWsUG8VCvNnPTGsFZqvXMecCUCgOUAzcl2EXQJqSX VyXIC6VTUiXRZjITTpSPmtSUVxVCP3Aex6VPAhAPVvJM1MArLiWWKlNLk1NaShCIEhVZUhhv6BUXPzBV OfOGJaHrPeUAUxBMNfQBouSMBhPGMsLePqUWBaUZGoHS9CMvUcFCCwRmQ5NiQbQEDcPYEnev7XIPBkAX MmCVOzTlXuKQCnEVMjHOrkJMLdGWIjFcW6KSDaROSe PY1DDiYxJDYoHnM2KVGyNUFbXVQiqb2XVXNzKTYnIwh9XkUpBDIpDSPeGJa8mqMdvJAlHSj4QM6PV5Cx lkUzKrwTAl7El431UQN1JTPaOx6CJ7usSj1nZPBlEILFBk2BWPi7KsQfCzFwPKgiZXTsVrarWKltKrW4 Sus9HsTxMvTeYLj+CXfbUAE4F8HcHpY2NyYiECSzWI JyRRbbHav4NNZ7LEWkES7gFYSOLn9+YNoweNTmrPxwAPWIDvKgTQS6ESxfTJJYBu5K ID Date Data Source [id number] 08/04/2020 11:38:04 AM EDT [facility] Name Value Range Interpretation Code Description Data Sumaya rce(s) Supporting Document(s) Progress Notes [facility] HJQEFr7mTwQTQbDi16/QLEgkOETxd8AwGTqmZWs1JZgmIZTzM5AdCUJ1gY6wDLS1GUnNHaNzPyHiVVY7 lbm [file] ILshuONwhDppIRSXUxJgYTZxLKhnDAPFHh3G ID Date Data Source [id number] 08/04/2020 11:28:35 AM EDT [facility] Name Value Range Interpretation Code Description Data Sumaya rce(s) Supporting Document(s) Progress Notes [facility] ARYWHx3sSdGCUeLv83/YXEupVEDwp7EgWMbeYLr1TZgnNOMfS5HcSHJ9jN6bXHZ8KRkUYpXjQiSrKJC9 lbm DyBjcRRzNnPXBlGtjKLeTwCTwdAjarcABuEK1PeLC8FMNjJ08mGCYuERWkR8RjTKE4FJh+Ip1DJEHdtC ZzLS5TSshR0Size4k5XK0dtU/Qa2PUrJYzXuNdlKkJij4dWk8dKQoIWXdk3oaYpX3l2kIds0Hd9+eEO7 AdOkmBtg/BOksd00uryOES7+8fdpBpzjlb/F/+mlnJ zmfs66/TtbdGe84oR3Jh9RAudehkJ+5XJW4/yJXMUkR2YC+BQLD6oVGcgpRxaLX2hWb5hh3A0F+E7PlL d0zX1TXCXk9bkShTgE1rK5a4JD7kxVwyuZc5ucUgENj1lPNLsmiu73hUHWiI5sTEZZyOFMdciDuRdWGP ficgqvuOZ75fzeCkfnwoxAUTK/ztWUU1MsponW/rbr [file] UEV2JPZi== ID Date Data Source [id number] 08/04/2020 11:27:49 AM EDT [facility] Name Value Range Interpretation Code Description Data Sumaya rce(s) Supporting Document(s) Nursing Note [facility] AAIXLj1xBqCUVmYs90/HMScsJKPde7TgQPnvLXz8AOdxWTSwN4YrRZH3mJ2zGVC8KCyAHnYgOmSyMPJ4 lbm [file] NpDMtvFFO1DniyDPjyCHCdPZEnI6IjWvZjFG6DAz3KOoL4ZHL1qQUhHa6BLjJ2CBkHZlWxPE0FLXu= ID Date Data Source [id number] 08/04/2020 05:28:00 AM EDT [facility] Name Value Range Interpretation Code Description Data Sumaya rce(s) Supporting Document(s) Blood Urea Nitrogen 13 mg/dl 7-18 Normal (applies to non-nume zaina results) [facility] Creatinine 0.61 mg/dl 0.51-0.95 Normal (applies to non-numeric resul ts) [facility] N-Acetylcysteine (NAC) and Metamizole lemus ve the potential to falselydepress Creatinine results. Baseline values before medication adminstration are recommended. Patients undergoing treatment with phenindione will have falselydepressed results. Patients on phenindione therapy should be tested with an alternativeCREA method.Toxic levels of acetaminophen may lead to falsely depressed results forpatient samples. Glomerular Filtration Rate >90.00 mL/min/1.73m2 [facility] GFR Reference Ranges:Normal Function or Mild [...] of Health and the National KidneyFoundation. The [place] method used in calculating this result is traceable to IDTX standards. Glucose 97 mg/dl 70-110 Normal (applies to non-numeric resul ts) [facility] Sulfasalazine has the potential to false ly depress Glucose results. Sulfapyridine has the potential to falsely elevate Glucose results. Baseline values before medication administration are recommended. Calcium 8.6 mg/dl 8.5-10.1 Normal (applies to non-numeric resul ts) [facility] Sodium 139 mEq/L 136-145 Normal (applies to non-numeric resul ts) [facility] Potassium 3.8 mEq/L 3.5-5.1 Normal (applies to non-numeric resul ts) [facility] Chloride 108.0 mEq/L 98.0-107.0 Above high normal [facility] Anion Gap 8.8 [facility] Carbon Dioxide 26.0 mMol/L 21.0-32.0 Normal (applies to non-numeric results) [facility] The above 10 analytes [id number], ,[place] [id number] ID Date Data Source [id number] 08/04/2020 05:28:00 AM EDT [facility] Name Value Range Interpretation Code Description Data Sumaya rce(s) Supporting Document(s) Magnesium 2.4 mg/dl 1.6-2.6 Normal (applies to non-numeric resul ts) [facility] The above 1 analytes were performed by [facility] [place] [id number], ,[place] [address] ID Date Data Source [id number] 08/04/2020 03:47:33 AM EDT [facility] Name Value Range Interpretation Code Description Data Sumaya rce(s) Supporting Document(s) Nursing Note [facility] NRCUZn6wObKOObWc82/BCAmfPQAia3FnXRyvMJm4HAmsBAEvH2UzPZJ2lY3kUVU7YLjMFfGzSkDsFRG7 lbm [file] TyUrDZfrWRYQNw3E ID Date Data Source [id number] 08/04/2020 02:05:26 AM EDT [facility] Name Value Range Interpretation Code Description Data Sumaya rce(s) Supporting Document(s) Care Plan [facility] IOEQZq9nAdXDTkUz58/NSEjnUBAgl2AeWIdsRNy1XBvbDSCaV5NyLRN1uE8mBPJ5NPdHYaAxEdHhGTN8 lbm XxTqoZFvPtPXTjKebAUmTsWHivDaruoZYnQA7VfRO9IGJiO73lBMEgAUEzR1LoHPC0KAy+Qs1IZDZzeV PxGO0CCttP1KlNm1w4AP38zt1WzxUjkP2GHTc75zRktz6qLl+qt7ellMsUjzAGfUr24nmFWHHoxUgJNh SmdMbHGNN1Xpp0879SYIIq54c2vslFNMp+qsfUSNaf sR9/PIckzkmfnT3DZ8EYzx1R85D+RuLLDqcmSqVCP/iV2KYmP6gzYSjSsP3QldWBZiqZv/K1kF6+1Pww gF/m0dpNQ3L09J6Vbez8loNoLwbsPAL9hb+wScD411rCuBPzys8OIJHX683g4u3WjEs2IdyNsx25ootd mRaiLMYpeutyatVCTCfjahgChc2R6c0b8amiNyYNgy 4fpZAOU0xAfgQKq3e3OPLgZznqMg1xXGJG75prAMD7ndeJEZzlgkEjKsCDfyZfZdLMN+c7FbjUKBYOfx H7pvj6/xRdUx0oKAqxZZbCYNzP1fR8EyMISh/VFwUILfQ9SchSHd/Gi/gbjBCeeZAMli3XyEjHlqtQm/ 4o34d2z00k0YFB5w38TcJHWQr46RiiIvonl2lc47pU [file] MCBSDQogICAgICAvRjEgMTEgMCBSDQogICAgICAvRj SxRSFhROLAMBbtYJEmQONgDpQnIXshLZOAEq5BByDtKAZwKO5cysCocJI3CGM+Mj1SIZGyVN2PoTQOJ8 KnsGWkOBycP8PCQX4STHE0TA9AiIHdHC3PkHIER2KerMJfSm7gTMOmg0OlZx4vH8ODYSGOLYMjVPvuAV liHCImYIp5Y6R8GPZtB3FQE630mUEhcEm1Fo3pO6UG ECeAGiNrBHtiUVtdNYPoJNn2I1F7LQSaR2NJS9DuBaTrrbGkX6H+RsHrVLRYXD9WLAXRWQd2J8V3eFMf V9W7aLsHyPD7IY3HIY4HtGLfdHStb04+NtGJRjMgTQAaC6ZVTXCQFeQnSIxjXDcoCXVzMNt3B3O8CZVe T8BFG5vwL0z6LG9+DqTVIvQkTWTiRc6AWyGjSi2QDr SsEA0phb3LWIhkSDPoLzzZSmi9I2bgplo7hBPqJbX3J2B2HjB9gMDcUP8BH4T1qSTiCXS2LNPmuFU+Pg 9Gw6EyXGFnXWp6T6wyHIEhEVVaSeWayS25U++5lpgijKC5Z7q1HUPYqRQvuEyAxjHeC5oWDLJ5q6F6UI c/Ix9CZCE8pMg1yENgJDKdHZt9lB5iyIy8YlSrXM70 DQTrBYiamR6uFtn9P0Hfq4CrPi1lRm3mrOOjUi4TPhQtMIU0gjOaVyZPGmC1eCulilxdHQW5U5f3qKA5 Au10l5wivrHqi8VxBeO9FGgeZCWoBsLzjiYzXRJ0zjRwyD0ddkDzNg7DGVIfHOtbpxOpCdCGUl6RNhAl II69YavweN4hbPO+DQogICAgICAgICAgICAgICAgIC AgICAgICAgICAgICAgICAgICAgICAgICAgICAgICAgICAgICAgICAgICAgICAgICAgICAgICAgICAgIC AgICAgICAgICAgICAgICAgICAgICAgDQogICAgICAgICAgICAgICAgICAgICAgICAgICAgICAgICAgIC AgICAgICAgICAgICAgICAgICAgICAgICAgICAgICAg ICAgICAgICAgICAgICAgICAgICAgICAgICAgICAgICAgDQogICAgICAgICAgICAgICAgICAgICAgICAg ICAgICAgICAgICAgICAgICAgICAgICAgICAgICAgICAgICAgICAgICAgICAgICAgICAgICAgICAgICAg ICAgICAgICAgICAgICAgDQogICAgICAgICAgICAgIC AgICAgICAgICAgICAgICAgICAgICAgICAgICAgICAgICAgICAgICAgICAgICAgICAgICAgICAgICAgIC AgICAgICAgICAgICAgICAgICAgICAgICAgDQogICAgICAgICAgICAgICAgICAgICAgICAgICAgICAgIC AgICAgICAgICAgICAgICAgICAgICAgICAgICAgICAg ICAgICAgICAgICAgICAgICAgICAgICAgICAgICAgICAgICAgDQogICAgICAgICAgICAgICAgICAgICAg ICAgICAgICAgICAgICAgICAgICAgICAgICAgICAgICAgICAgICAgICAgICAgICAgICAgICAgICAgICAg ICAgICAgICAgICAgICAgICAgDQogICAgICAgICAgIC AgICAgICAgICAgICAgICAgICAgICAgICAgICAgICAgICAgICAgICAgICAgICAgICAgICAgICAgICAgIC AgICAgICAgICAgICAgICAgICAgICAgICAgICAgDQogICAgICAgICAgICAgICAgICAgICAgICAgICAgIC AgICAgICAgICAgICAgICAgICAgICAgICAgICAgICAg ICAgICAgICAgICAgICAgICAgICAgICAgICAgICAgICAgICAgICAgDQogICAgICAgICAgICAgICAgICAg ICAgICAgICAgICAgICAgICAgICAgICAgICAgICAgICAgICAgICAgICAgICAgICAgICAgICAgICAgICAg ICAgICAgICAgICAgICAgICAgICAgDQogICAgICAgIC AgICAgICAgICAgICAgICAgICAgICAgICAgICAgICAgICAgICAgICAgICAgICAgICAgICAgICAgICAgIC AjMNYuNCIpOIHyJSAeMPDsHSJuJNMeKQLuXQKxLVFeGDx6O4wqPLAaKVTkDU5iHBm4Zc3+DQoNCmVuZH W0ohVhcJ3TKL9gq5TnDCzoVOAsb8TqXHb3XN5UYBMx EEuyTD4MHEolyq6AEKTpULJspVXTz7ygVkKbMDW6ZUBvIiyfWS5MCMWsT6fehfGmLQRdBZFIKJ6KCpEj E7DlxN90HCSMCw0+EVjpteJnJlpDXqAmELHui6SjBTy1QO0IBEGwQkgab3FxCaBaZLZWYFlbJM9FIJE5 NCWpJVMpLe9USOLbE354xqGnJQ1DRs8GIsRyWX1ifl 7MYeBnNIYxThaSYsn3UFwkFG2CaDFsTXuTXQLvSDIhZJ9pZmjjEWflaFVHoOAsJ5DgVQNAFuFrdLZmOZ 2ySZ8rWMOjBVXgNgQ9AJHJHK3IMAZjKEIbyTGfZQNxJKYAJS2GYSmsQUN3OifrrkQygFSiGDirAI8KPC JlbnQgMjAgMCBSDQo+Xl1KEC7hq6CgOIylMqIfOY3w da2ZOGvGAhVbE7A7dCLvR2H6CTosNq9GVGViKBWiDEntXHZVHScjDO6OVV5qthW4KE5LoPOaUVNlYUUf gOYtRJr0B34frUVlSCdvMV3JDNT+Savannah+Ej8ZMOEoQOMnFWFmNdXtQNIONkKgE3FxM6ZIz3OcO4CwLR82 dLtkymYwCKftAS7DIU9bHTEfCXNKCJ1IpAVphC9khi AvXQQmLCBQGqTwI32csMCxFDNhPTJ4WXOlAe8HQHAgW0KdouTveAiyiuWuSNSlPWUKTS8EDGnmytFeiR YbjCtzWP56eVthIQ3TEq7NJhAaKW8eca3MdXSxWo7XZNDyBc3DFUXwCEUwTEMrZIT7YOCvKlBoHOofFU EbVVJeIIY3DOIoEZFqWQ7NPqFjPDOqWVy7PtRzELWb NYEkko7ZIKYwRIDwNTT4ZzXaMBCdOOSiXSyeYVXbQIGkJKC4LRYlTSIfLL5FKySxZKOsLLP9USkeOHUp TIYshb0NHZZjJVFiItUvNIJhURCdPXLdFRjeVIQyCCAbCYF1LJXeMTPiFG1LOzKvHPUaAQDoFpMsMATx NZGhvn9ITWIlVPWdGiR0SDOcYDIoDKJsAPuzVUWsRQ B7YMJ2GUAsSCWxOP8UFyYfUVTuGPY0ZMFaOCQtSUSqva7UPWWyJTHcRIw9NsCzEMMtNBFhCAqgRVKsDT N3ZTVmXBBiUWNuBJ3GAwVjZZRrPEJhZNCuUIOgQBXuya0CKGLuSEOnZtE4SeXkWNFwLWHeDOtvTUXvND U5EnTuPRXxCPWeWS9NPvJaXOPpUNq4YQCfBOHeIQSn wq0ETKKlZGDkXdQ4WpYdWVIsCGVnRCajIAAbTDN2JHG0YSGoEMRhYC2DZbMcTWAjXSk0JrRiKZNbGTFa tn4UVLQtOYHqTMD5GcWpDRUhCZIiJEkmXKYlADL8Yfp0CPRzRIRjYR8DJfJjKBswUBAOMfo3RMtsS6q8 RPYjOs1UK2Irn3QgMbRdMFRQBEqsGH7ppvQzSMVhHl 1OZ0lYHjwkRjRsHGFqOtZ7SPMjOlQuKOWqPXZjXKBpPsF9E6CzRj5sIJCrAxZpXSBiOsTrVIHwOtToXl X1TAI2INRoYFyxGNCpKmPzBT8GMx9NBaD8UOK3zUAnOt6XTMowQs7QCYPMF9EABx== ID Date Data Source [id number] 08/03/2020 08:16:36 PM EDT [facility] Name Value Range Interpretation Code Description Data [employer] rce(s) Supporting Document(s) Progress Notes [facility] SMJYAx5kMuSGFkFe52/IAKkrQIGpj5JsRVhySVv6XCxlHHJrA4SoHFA3kW9aMON8UHtAMjQmUoVoEVC7 lbm [file] MDAwMDAxODEzOSAwMDAwMCBuDQowMDAwMDIwMDcwID OnPDEsLQ8NFbFoWUGbIfVnOmZvTNKjJBDxwq4SGOIcLMTiBOPhAMRrUAWnZQYmHWvcWBJoUYKaAIS7OH HqGXZwUX5MBlQxGDHxLtE5CdMpEVCdBFYekr5MEQXtQJXlQxW4XJAsBMVrKJArPSazYRPuRUDnIxjcDV GvSFKnGN7XYbNjRARtRdY6YsAyAIWfLTVpix8DQCSk HENoIajsJGIbNJVdTTKnKNmxYLVnVKY8TZKgFSHdECAlNW4FXoCfCFVkMnVrRwEiUHIrXXGugr8BVILm SLXsMRZ4AVTsFYMmYRWmOLclPTAeBUI0OXhgLJSpDYUkXT9GUrPtNSPeCnG8NnQiFAIgGDRbeg5UUDVr OZRoDbHxVcKnGZRzFKSmTEuwTTKkBFG0JVP8FJOdAP WmGR8JWkYcCKKvKbgsCZhhGWXmAVMyls6XAUIzYLK2TNZ0LqJrOICoCYPfSQacUMWgWTA4AHZ7LWUnHZ YjBK3ZBeHwQJLqVUZqQCsjYRWaTZQezt0YNQClVYW5UKr2JGDuSUNiOJFoSWlxJLExTQMiMER9UBTeST ZqPQ6QGfOaTDPhTOA9QyzcYVXuDNLoej5ZCKHxXLX0 Wjw0MfAgNLCiJGZjORoeHNEjENEaEXE2BKYuSNHaZK6NGdHoNYNbAKRtPmXlGHBiIFOesz6SzODxbCao ft7ZUYaHLr0CuXziZCLaJOwnKu9xwLY4CeQtUADHKf9IxuQsOEBlJLDTRLkkARHhNMdbLOIgBCMmTYUb EZQ3EfTiDmT3OuClNqqaUUC3QGLuTkS9Z6YoHQAxOX CxUjSnGsEnAZCaOXbwCeKePMWmQXY4NWR+AY4uPMk+Mp5Gh6HsgmC5snUfOWy8UfPaGH0KBEADQ6SMFl == ID Date Data Source [id number] 08/03/2020 06:28:00 PM EDT [facility] Name Value Range Interpretation Code Description Data Sumaya rce(s) Supporting Document(s) Nursing Note [facility] ANHWXt5mYlCPLpXy35/HWApdEJDho7KgQOhjIQe7PRobEPOmI1ZvPZN0eH1uFLO4ODwUWvAwHgBoIDH5 lbm [file] dGE+DQogICAgICAgICAgICAgICAgICAgICAgICAgICAgICAgICAgICAgICAgICAgICAgICAgICAgICAg ICAgICAgICAgICAgICAgICAgICAgICAgICAgICAgIC AgICAgICAgICAgICAgDQogICAgICAgICAgICAgICAgICAgICAgICAgICAgICAgICAgICAgICAgICAgIC AgICAgICAgICAgICAgICAgICAgICAgICAgICAgICAgICAgICAgICAgICAgICAgICAgICAgICAgDQogIC AgICAgICAgICAgICAgICAgICAgICAgICAgICAgICAg ICAgICAgICAgICAgICAgICAgICAgICAgICAgICAgICAgICAgICAgICAgICAgICAgICAgICAgICAgICAg ICAgICAgDQogICAgICAgICAgICAgICAgICAgICAgICAgICAgICAgICAgICAgICAgICAgICAgICAgICAg ICAgICAgICAgICAgICAgICAgICAgICAgICAgICAgIC AgICAgICAgICAgICAgICAgDQogICAgICAgICAgICAgICAgICAgICAgICAgICAgICAgICAgICAgICAgIC AgICAgICAgICAgICAgICAgICAgICAgICAgICAgICAgICAgICAgICAgICAgICAgICAgICAgICAgICAgDQ ogICAgICAgICAgICAgICAgICAgICAgICAgICAgICAg ICAgICAgICAgICAgICAgICAgICAgICAgICAgICAgICAgICAgICAgICAgICAgICAgICAgICAgICAgICAg ICAgICAgICAgDQogICAgICAgICAgICAgICAgICAgICAgICAgICAgICAgICAgICAgICAgICAgICAgICAg ICAgICAgICAgICAgICAgICAgICAgICAgICAgICAgIC AgICAgICAgICAgICAgICAgICAgDQogICAgICAgICAgICAgICAgICAgICAgICAgICAgICAgICAgICAgIC AgICAgICAgICAgICAgICAgICAgICAgICAgICAgICAgICAgICAgICAgICAgICAgICAgICAgICAgICAgIC AgDQogICAgICAgICAgICAgICAgICAgICAgICAgICAg ICAgICAgICAgICAgICAgICAgICAgICAgICAgICAgICAgICAgICAgICAgICAgICAgICAgICAgICAgICAg ICAgICAgICAgICAgDQogICAgICAgICAgICAgICAgICAgICAgICAgICAgICAgICAgICAgICAgICAgICAg ICAgICAgICAgICAgICAgICAgICAgICAgICAgICAgIC BpERFbPVMgBXFsZQNdUCCnDTMlHAFgPRg8F8boSKQvAFNnGI4xNDa0Hn3+MMfCKjLmQGA8ajWmqS4RQK 3id6AcGScsLTDfd4JmIFt0PT4HQRArNCdnGT3RBRoaad5FPQOwQGVrbGSEh3yeNfTqHRZ0IRLpKtmrUU 8EDZMcO0wzfpDfWEYwMSAGSE3NPaOlV5CcsQ40VXJO Cj4+SUpwkzRkPisFDkZtNXNgs5EjVSb3YO3VKTVaMwleo0ZpGwEcLECNJXxeAT0VUYI3RYJuAWQkLf5P RVNtH323nkJvRZ1OIp3HYmStBJ2orq0HDoVlRIJvYbdJClx4WFfnJV4ZiVPpOKhZcLUdwR6kDX3lkZEd FtayMXpumhFuGYlrs5Z4pJInXUOHRoZkzURmFD5nGE 3tNXLbDZO1HkT3FESRNX2DGGWqPTIopOPdYCFuKGGLAX7DVBglVXL7MeoyuxRhoEOdYZapKX0IHEKvso QgMjIgMCBSDQo+Vq7LWY1hn8PrHZzaHUGwOR1ggn6NEReTAuXfV1J9bUWlU0I7DWeoOf6UXRSvPLEpEx CfGNAQOBvkDJ3LNF3pclV8NA0JbGUuXTZfCBAyuFJt UYw0F89rtBEyNLuxIM8GXYU+Savannah+Ey4VHEGnYEFtOBDjUoLjZQPTKsHvU6HpA9KWb7YwQ8KlVS71mPyx ksLoEArpXG2UDI6bGVVhWEKAZN5EpGAgmS7trdDgSjByTASVWfViV95nnZKoSQFfBMVaBKYwZt8JDAEq E0EjkfYfjAkrypTmYULdVWTSGN1XVBnlwwKitGAgdZ lkUP38gReoCJ1AVy6HPuYrZR4osv0JvRQgVc7XFHSiJD2AVLVwTDCpYUOeIHH7PQNlOzLrLXxrRRMsXV DcLEK1HJHeKOHxPJ5DOlUzCKOsYZu2MRWaSWOxUSYyct6FIANsEDGvUPGvAGKuKZKtQUKiFGqxHCCvDA VyYYT4CVPyJVPjUX2YKfHjGPAkEDMqLZygYURsFCJr ic8PZEDsKVKfBEBcFEFrHDPuADPjCXmlOGAcUNClDPi0MEGhIBDlKL2ZKjFsAKMmXYI7KDXvCCCaTZEt bw1STXQhPXGwDrc8ZHAdPNQfSUThMFvxEEBdHRVdKWN1AHAgQTWcLV1NEsTwAZKzHTXlCdGmYXLvTHSv ji1RBQIlWTHtPMYsHyJwZDRaEIVtOMskUCRnOTN6FN HzKYKlTONhBE5SIuNuCIQmWHS4YshvHAYzZQDqwp6CAZQkXHMoDjN7TzBtHMOfUZLyZKqiYAQpKWD1Zk Y0HQKrOGVvVL5BTzQgTEYqTVx4AxCyBXMcILKlba1UEHOfBZZeITWgPQUnYZVsGCLlTJnjXMUoCUG2UK kxAKDqBZUeBX1WHuZmIIMdKRq4KsCsYQNrILNwqe9R NRZpEPSmITW1SREkKZXcDXBbQPklUUFpBOBnAuW4QSKcVJUbEB0DHeKsEYBnNeY9BVkoAMXvZADfve6J TXStHWBoFSbwSlRiJHOsYVMgTOl8kqAzrRYnWUp2FI1RH6RjpqOkVjGTRf4Zu895PDD5NSUkOf0PF4pt Xb0gOUAiDHSPNz4FAHi3HMV1KET7ZeLgHQF7SLVsVA UaAcWvRbY6CYSbQFCnVEk+JXdrMjSwDUgfBAR5Qaq5NpI3PSUyNWAbVkHrF6OpL3NnWE6oOOPIVu8+DQ scpSDuxDguBKWWAyAnKZwaBHiqQCOBYp2D ID Date Data Source [id number] 08/03/2020 06:22:14 PM EDT [facility] Name Value Range Interpretation Code Description Data Sumaya rce(s) Supporting Document(s) Care Plan [facility] TJPAHa5hXmYJFcRq59/PAVdkVILgk8VjTZrzUFt5UUkxBOXxO5ZcNDQ3nN6oGTS3RNeROnWtUePrIUP2 lbm [file] ID Date Data Source [id number] 08/03/2020 03:09:07 PM EDT [facility] Name Value Range Interpretation Code Description Data Sumaya rce(s) Supporting Document(s) Progress Notes [facility] MZHPKt1sCnJYPbOa59/GRCroJKBgs1SrCQavMOh4FXnnBCPuK1MsNKQ3gC1kIQF3JYtHBuMqAdNyROX6 lbm [file] ICAgICAgICAgICAgICAgICAgICAgICAgICAgICAgICAgICAgICAgICAgICAgICAgICAgICAgICAgICAg NFGuKUYfCJLoORVuEPGmQTAnBPAtHDWlYV2ALCXbKLBaRLUsLHAxCUOxAWQhDTGmKIRaUZMjAHKqQLJs ICAgICAgICAgICAgICAgICAgICAgICAgICAgICAgIC VwZMWbXWGaRFQdNGThZGWpWSVhRHSnRYGzKJYcUEKwBKNsPG2NVJFvEVUoITNdYDVvPFIcNHCjSYTuLB AgICAgICAgICAgICAgICAgICAgICAgICAgICAgICAgICAgICAgICAgICAgICAgICAgICAgICAgICAgIC NbEGMkPXVhQBWmDLHsCXXcME2SIBUfVUShOZVlKGEv ICAgICAgICAgICAgICAgICAgICAgICAgICAgICAgICAgICAgICAgICAgICAgICAgICAgICAgICAgICAg YNSjFDYmNWPdBWSiLEUsLWCtUQIfJBJvIXGwPR5NSSSrEWDnQJIxNOCrEPLyRRSxRDBrWIUzKPXsEOSj ICAgICAgICAgICAgICAgICAgICAgICAgICAgICAgIC PvUCVgOEMzUZRoLMCrQCYqAOBgTCKnHJKpHKZuKPIvQJNxNBOlNE4VDPYrZAGtAUSqDSIwVIFzKAHwKU AgICAgICAgICAgICAgICAgICAgICAgICAgICAgICAgICAgICAgICAgICAgICAgICAgICAgICAgICAgIC AcOUOhXOCoICOmMPMaJVYiKNPyXL2VMTYiRCZrGOOa ICAgICAgICAgICAgICAgICAgICAgICAgICAgICAgICAgICAgICAgICAgICAgICAgICAgICAgICAgICAg GFVjKIXiASJaIJBvPEHjWHEiSQSvQREyUUBjSVNrTC4KDCHwXHHrEQAfLMAeLZNeLFJgTYTzJRIkRTJf ICAgICAgICAgICAgICAgICAgICAgICAgICAgICAgIC IqHMQtUMMaOHEoXXIuTZNvSPRtSPMsYFEeRNUnSXRpTXOcGTFeRJUeHQ2IMWEpKYFbXIVmLSQrJTJfZW AgICAgICAgICAgICAgICAgICAgICAgICAgICAgICAgICAgICAgICAgICAgICAgICAgICAgICAgICAgIC SoGASdPDPnLBXqPHByUVEwQRXdVRXpQH6HIQTkTKLw ICAgICAgICAgICAgICAgICAgICAgICAgICAgICAgICAgICAgICAgICAgICAgICAgICAgICAgICAgICAg RMIrARKcBHExEDMuHXQbXAWqBJEwHVRqUGQaSBTjADBnUS7LFM92tDRew4P1GPZmMY7ufsg/Vm3WIMnd fqYswZSoTF2VLcIzHV2kjq4FToDhFL1awj2FRNeWLw WlG8Z6lVTaJZBwCHAMGdXkQ07fGQnoPj01SIiyZDWqQvRrFFm6Cx0SHcQqE7rwDQYiJuI3EDWqBzW5SM QnMaO5KFIdKuDjDGltSW0Rm3VlcJWoDOo+Qg0LXH5ah5VyILdwMGVkRW0apz4BBPdZWtPqF5YsbwK9JT UgGMWsIt1HOQCoIWBuxWNdUELaLVQHCxPwJ1EutQ43 IDENCj4+NWoarxOwNuxEJkBlHQZbx7JqUNv2BJ2QVTCvSNz3wHZsHQFbN3Rkk5YpHq60JRAxVfblYcWs y9BzafHrO00rwGG4CMYRIAScsBQxQW4xTL7qVXObKUClZwSuGYQBIB0CHZXhTRIjeAMaMCVzMYJIQN1U TKzoSER8XdojasIcmGNoIMkfEN5BFKLakiOfQycaAW BSDQo+Os7GGJ4pa5DpJEwbGJGvRF5pju0ITBxLPwPsH0O0yYPjK6L2NMwxVb0MYAEtCZHtBiraNRHJBL evXH2EUV5qdpC2OZ4XgAXcIKTiXEVmfAMqAYa5P34ufFViJUxjNR7IINA+Savannah+Pu1BVJMxDJTzFGWlQs GpUAEEMtFnM4UfE4ELw4VrO6WsAR33bIwumiQiONug XY1QSR6uHSDqCQWEWT8AgSBwlC1xiqWmNFAtOEBXEbUsW33eiJUgYDJuBSO2MTRiWb1GBMAhQ0VqamRr zRnadkCqZXWpNGDMSC7VPUagqtIpkBEriFewKV52wDhxVU8LXk8NMvPuDN9ptl3FdEUsOn5RTWGrUd1I WADuBGIxIBArNJZ2SICqGiCjYHfnGJBnGRAjPNS8YT KcSPSeVN3UAxNmEEPdMBxfHENlILQrDGBroa9MMVPbDZVzHWZ7MUGzVVElVSPtSQdgGJOxAUDiJCK0QC BxCPByTH4IWcDmSVRlFEFwNBRuVDYePNNdch3AVEIyDEWwUpAtFWGuQTRvEFSgTQewVYJrLSF0AEzvQI OdANOiAL1NTvVbMQBxTXBgUXGtFHIoEOOesq6JNKSk LPLdQaxiMnIgQEBeOJLmOQlyOZWnBXU0QUFyLDZzAKVxWT1VBrLwCIYiFKvcKngjWHLfTIHttn8MGJOl NEApBMV7BRGnSCSwQEFkRCscJULhBIX9SSP4XLZwCXGlDJ0GWiJuVKQaHUK7BDyoCGAnGTLnce0BQNKq IQPwWTVmFkIuBMPoMUArKIqqWIVgTUQePwi6CYNhGL UxOX9OKoZrCWWpFSH9LPyjNOYrLKPgan0TWBIhCJDzSTw7DWOgJREfPNBdRKovIVSeXVRnUHH0YZZvKK BiVK3ZRnEcJBEeDIQsNUOmKUAmLQZojk2DSMFtCBUhQhQcGIThMVBuOZZfGXqpZNWiQTKaBVy1APZnKH WvZN4OXgSmYUOjLIalVNCqOEFgLPHivt4MCTXxWOKs DFD5YiGlTMByTXRhMChwHYQkWON4HNh7KMBfEMLiNH3HEqFqCEBiNNbzNdQgUWUfISAlrr5ZUYBpXGQo TAI2VcYoHVJdVCJkXSsnLKVrYKB7BnF0SPEyKGZuME7KBkZeGDKkAsRrQPXlDZJwHICzdy1USSFnZVWd DCJsWjMyZPWcMAUvFVaiTLDeXSHqSbi7WYHzLYSbDR 8NAdWuKWdnCBGKXbk5ETgoH5v9TDMjWr8RT9Vpe5SqHaTmMOXLOEyrDU3fkwCuZFIpRv9PM5mMTod6TZ I4U8N5IgkmJWuiMuZ7OnQ2F5KgRFUcWDMnLAK5Da9dJINuIoowXpk7GBX7VLPyEgjpXcG5WjC3WwBsXd R8OPQcCzGwSM6CKg0KEiJ3NHQ8lBNbGj1QAqO8RkAQIkRgTB1NXXb= ID Date Data Source [id number] 08/03/2020 01:30:40 PM EDT [facility] Name Value Range Interpretation Code Description Data Sumaya rce(s) Supporting Document(s) Progress Notes [facility] RBNMPl7pMwUCJrFj66/YQZrdMWMog4EoHZgwWBj8CGwwIWRfI5HeLBH3dK0pYNP9HIdPJgPrHiRzLUS3 lbm [file] FHH6TV8sKCSYBe2+NDkaaIMeeXphCBRWJsE4HjW1PMbeIOZRJu6X ID Date Data Source [id number] 08/03/2020 12:40:37 PM EDT [facility] Patient: NI DIAZ : 9 [facility]ACS [facility] [place] UPPER GI WITH DOUBLE [...] rce(s) Supporting Document(s) ID Date Data Source [id number] 08/03/2020 12:19:44 PM EDT [facility] Name Value Range Interpretation Code Description Data Sumaya rce(s) Supporting Document(s) Progress Notes [facility] WETZHk9rJpCEGyXc13/APAdiOLGmd9EdBQgzQVc0CIpuFSWdV3StWJE1pP1lSWC3TBxCQzMeRdYhOUH3 lbm [file] AgICAgICAgICAgICAgICAgICAgICAgICAgICAgICAgICAgICAgICAgICAgICAgICAgICAgICAgICAgIC AgICAgICANCiAgICAgICAgICAgICAgICAgICAgICAg ICAgICAgICAgICAgICAgICAgICAgICAgICAgICAgICAgICAgICAgICAgICAgICAgICAgICAgICAgICAg ICAgICAgICAgICAgICAgICANCiAgICAgICAgICAgICAgICAgICAgICAgICAgICAgICAgICAgICAgICAg ICAgICAgICAgICAgICAgICAgICAgICAgICAgICAgIC AgICAgICAgICAgICAgICAgICAgICAgICAgICANCiAgICAgICAgICAgICAgICAgICAgICAgICAgICAgIC AgICAgICAgICAgICAgICAgICAgICAgICAgICAgICAgICAgICAgICAgICAgICAgICAgICAgICAgICAgIC AgICAgICAgICANCiAgICAgICAgICAgICAgICAgICAg ICAgICAgICAgICAgICAgICAgICAgICAgICAgICAgICAgICAgICAgICAgICAgICAgICAgICAgICAgICAg ICAgICAgICAgICAgICAgICAgICANCiAgICAgICAgICAgICAgICAgICAgICAgICAgICAgICAgICAgICAg ICAgICAgICAgICAgICAgICAgICAgICAgICAgICAgIC AgICAgICAgICAgICAgICAgICAgICAgICAgICAgICANCiAgICAgICAgICAgICAgICAgICAgICAgICAgIC AgICAgICAgICAgICAgICAgICAgICAgICAgICAgICAgICAgICAgICAgICAgICAgICAgICAgICAgICAgIC AgICAgICAgICAgICANCiAgICAgICAgICAgICAgICAg ICAgICAgICAgICAgICAgICAgICAgICAgICAgICAgICAgICAgICAgICAgICAgICAgICAgICAgICAgICAg ICAgICAgICAgICAgICAgICAgICAgICANCiAgICAgICAgICAgICAgICAgICAgICAgICAgICAgICAgICAg ICAgICAgICAgICAgICAgICAgICAgICAgICAgICAgIC AgICAgICAgICAgICAgICAgICAgICAgICAgICAgICAgICANCiAgICAgICAgICAgICAgICAgICAgICAgIC AgICAgICAgICAgICAgICAgICAgICAgICAgICAgICAgICAgICAgICAgICAgICAgICAgICAgICAgICAgIC AgICAgICAgICAgICAgICANCjw/jOLjF1ekvWNyysU5 Z8wqXy5QZj0SVE1ur4MkGZErIVedypZnZsoQCqVcYRYkNcnAGns3ICzbVU0AxKLdZ0VkY3WkIPheQQ9C CQHpSPFcjWJiBHKsKQNvDpR1HZOaEItzEC8GcXNfSQzcSNJoGSQtGG4CLMXsY741jpLwXY8EXy7JUjCp KW7ahh5PRdXqEQXrVgeDAfu5WLjwGR0NvCCjdXHgMt YhGLITRiXkE1zxg7QsLmLaYYGFRHykPP9Rn5TdbFZnZEz+Xd0GVM0gk1ViWGswMyEvTE0hld8WLXxQFb YlQ8JutZvxOIXff3gvNLQjTY3inBAaNTS9KE1bcbsdCuAgi4DfSIGjFPKsTBMgPcWpOKHkMnfeWHNXNK xEUmIyX4Sok1GxOqZ8SAIgFtCjFDgwXQAyKdF4PO42 vMreHQ2MEWSbBRGxFH66NKU6PSOlUw2PKd0KNgEkIU3rkp4TBhagQBXuQquDLks2JQekJG9BdUKeE6Gc nEFwd5fWDxZcP9DWGIMkQYPmLi7DPXDjGzUnJBJaQBdjLV1kEIJbLEPXvFwpawW3YX3FZM9lzbRyVR8R YqXhGg7lVp4JBfTgA5AzY1InMFWeKGSSLMtfHI0UAB mfGT6xRN2Nu4HEyQQqtO8wyo6HZLVlLOBoUqzwwr6ESkhaJ3J1iFvjIREsSjScNAZOAXaoPB0KNRPxIS T4LNWbVDFiPYUYOlKqN67zGZ9GK7Pbo72lVyD0MMUbQtUrDHpnBR17sKtobmPedMAcgDpgNG7LRt7+DQ plbmRvYmoNCnhyZWYNCjAgMjgNCjAwMDAwMDAwMDAg DwN8TbXvBv8PSYBlKWVaZVVfInKiLUAjBHReXHmvCIIoKOTpFPJrAJOsOHEjAZ6NNpJaKQWcKeT7ZUYy LWAoUJFril4NJTNlAYIxJKG1EzDrWBGlLUMgJHuzYYRnYFSsEnSdDCSuLRDsGL6MTiArNNLeCQP4Zors ADBuDYJheu8XIXPdQPVkAdQ3WZCaQEYeNFByVMynBD IvQREgKUf5VNPbZETuIU4VSqPvZQWgCYW4UdTcDVWhVRQrlj7CUWShCDVzMUurLZFqODVpNMAdMJibDC SuBVP3KVM6PWKeRCPgDX8IQoTrPHOnSEHpGKmxPVPzIWSzew6HYQGpRTSzMqH9QGEzHHItHCCsTQlgSM NnXXC0Rni3SOHmCYDyKB1JImGnVFPxNPr7HXBqHBGp LWRwrj9HGNAiUVBuIKImTkKcKRFaIJDhBWorXOEkTKB9EhV2MGDpXBTfHD3XJdSvCLDbHEevNGRfOXJa GKUukw9WNNSgDNDjOKTnJqViCHPuGEApPXmcVSZwOBU6PgayAPFiUQWsYU1NYmXfKDDlHzF8HjJwEOWe DSXwwf4JKOGnYAIdYPqaIPPlGLOmLHXbYVitXFCvRP RuOEpgZFGfMEJqXI9USuQnUSBtEgP6ZZXrQFNtNMRatg8EHBDqPFLkPil2NWQhEYOqSESrGHxbRFNhWV RfHQLaFHBjHKWsZQ8RGeEjSOQlCmPeXvTgLARwXSIjlv7VxWFdoPwdvf4SBBxGEa9PmYvuZTJ5SObaAj 7jfNDeThZvBNHNHw0GreZgFMBeIJHTXIemWFCmWZq0 Q7JqRtSiLkU9WMA0AIT2Z0EdMyqbPfE6WVFbQSZgPwJ9YQghXNRjHJT9PHoeSxx7GFqcTvGoJYW9CrTm ZDNlYjM+TA6nOKz+Yh3Tn9AkouM7stSxABadSeOqBE7RZOKWV9NFVg== ID Date Data Source [id number] 08/03/2020 05:45:35 AM EDT [facility] Name Value Range Interpretation Code Description Data Sumaya rce(s) Supporting Document(s) Nursing Note [facility] LRDHWr2xKaIKQcGs44/CKOngEXKei6PiPAgeYMb5MCiaNRXyV8CpVPG3fK1bXJE2XMlECtOyNpTfZSX2 lbm [file] n3UNY5OFjbICPJDp3A ID Date Data Source [id number] 08/03/2020 01:57:24 AM EDT [facility] Name Value Range Interpretation Code Description Data Sumaya rce(s) Supporting Document(s) Care Plan [facility] SSZALf2oEsLGHiTi85/VIAarOKRzn4OiUBjbLNr7ABrbODQeX5BkMSR2vZ9cBZB9PGxKSbMlRwEkFHL2 lbm [file] IDggMCBSDQogICAgICAvRjEgMTEgMCBSDQogICAgIC OzWlPkIYSzJVQFGUejIBFwWXJaLhPfWDhlIMORPk2JGvRsKVQzJA0mfpAocZG4VBU+Yh4ZHNOjUW7PqH DDH1NazRQhQTyfV5XAHI3CRNR0SO1TjEAnHD1AzHFFD1GjvPZfJf3pZZNpq5CiUf2gR4PQSIBHBFYsAI ajSLiwBMYkFGh7I4M6FRDeX0GYX907wXThtJe9Ky7h W7UMGUeDLkGjXIzsCXtuSFRxRHa2Z1W9QDJyN0MNT0DtNgVtwzPgW6G+DjKcVIDZDG1KTKRNAYg5B8C9 aOTlQ2C4uNhNlAQ7PK9QJH2CgUBzgCTgs57+BaQDBmJnFDOdM2KPIFTFXyEuULgaJRzfIDNpFIi4A2H5 MSXmQ9LMG0iaG5y4YR0+ShRZTqMmOHQoPa0NCxLpIc 2BSaRsYF4tuv7ZKXxeWVZoIzfWGua6U2liasz4xFAjBfX4U5W8HwM1aEBqWO2LM6G9xXUjSZO3PEUupA E+Od7Co9CwBHMaZKs9S2aiROXwNHJpVhBpiT34T++0dscllSS5E6d2OQKXkOFgoWwDhqXkR8vSWVX9l9 M5ZCc/Cz1VRSV6wXu4zTPcFWLjXVz9xK4yyBh3AiDx SK80LDAlBEnqhC0oQjp5V2Qen1SlJp8zFg0znXZaEr2KKjSuQUB5jpIvHcATGoP1wKomtnodWWD1I7i4 oBE9Pg73o9pkncHep8YgVeW6SGhrNNPaFtZlprOsXIH6wiTpuN5oiaXqAn7QVOMiZWbqwiSqGhUSMz4V JiVrZA19QxawiX9baSE+DQogICAgICAgICAgICAgIC AgICAgICAgICAgICAgICAgICAgICAgICAgICAgICAgICAgICAgICAgICAgICAgICAgICAgICAgICAgIC AgICAgICAgICAgICAgICAgICAgICAgICAgDQogICAgICAgICAgICAgICAgICAgICAgICAgICAgICAgIC AgICAgICAgICAgICAgICAgICAgICAgICAgICAgICAg ICAgICAgICAgICAgICAgICAgICAgICAgICAgICAgICAgICAgDQogICAgICAgICAgICAgICAgICAgICAg ICAgICAgICAgICAgICAgICAgICAgICAgICAgICAgICAgICAgICAgICAgICAgICAgICAgICAgICAgICAg ICAgICAgICAgICAgICAgICAgDQogICAgICAgICAgIC AgICAgICAgICAgICAgICAgICAgICAgICAgICAgICAgICAgICAgICAgICAgICAgICAgICAgICAgICAgIC AgICAgICAgICAgICAgICAgICAgICAgICAgICAgDQogICAgICAgICAgICAgICAgICAgICAgICAgICAgIC AgICAgICAgICAgICAgICAgICAgICAgICAgICAgICAg ICAgICAgICAgICAgICAgICAgICAgICAgICAgICAgICAgICAgICAgDQogICAgICAgICAgICAgICAgICAg ICAgICAgICAgICAgICAgICAgICAgICAgICAgICAgICAgICAgICAgICAgICAgICAgICAgICAgICAgICAg ICAgICAgICAgICAgICAgICAgICAgDQogICAgICAgIC AgICAgICAgICAgICAgICAgICAgICAgICAgICAgICAgICAgICAgICAgICAgICAgICAgICAgICAgICAgIC AgICAgICAgICAgICAgICAgICAgICAgICAgICAgICAgDQogICAgICAgICAgICAgICAgICAgICAgICAgIC AgICAgICAgICAgICAgICAgICAgICAgICAgICAgICAg ICAgICAgICAgICAgICAgICAgICAgICAgICAgICAgICAgICAgICAgICAgDQogICAgICAgICAgICAgICAg ICAgICAgICAgICAgICAgICAgICAgICAgICAgICAgICAgICAgICAgICAgICAgICAgICAgICAgICAgICAg ICAgICAgICAgICAgICAgICAgICAgICAgDQogICAgIC AgICAgICAgICAgICAgICAgICAgICAgICAgICAgICAgICAgICAgICAgICAgICAgICAgICAgICAgICAgIC HlGBGkNYAeFZUcQATqCITqDSAwTYOgSZPoYFQfOOGbVDYaZYh8M1twXPFuUXEcAB9vQCd0Ng1+DQoNCm KsWWQ4xwSveF5FJN7ky8AuDYeoTBHeu8EpREr9VO9A UAHuWSdvCA4EFJhnwl2PIXAlPOYtsHDGv0aoJkPnSPP7NDZmTowsSX0HLIVvZ3ewizMaQVQwCVRYLK3M OfJiR6LfkH33WGEAIy3+MTqflhUrUgkKFxWhNPSip5HhCNj4BN3BHXErWfpgc1DsEcGtARRYZZjhCF2J AZC1MDReNDMqFs6IVIOfJ919nvMzEC9LKr6DHvMqQG 8ypq0VKsBmJWXkGeyQIrq3EClvWQ2YdTVaDKmYNBEiCGLmTI2eXmbdPFrniEIMkFImE2LeNUURBxJktS GyIN4nJT5tYHJqTAIuLnG2WNJICP0DUZWqXFNtzMUoPPPtQRVEZP2BJBgxERI4NidoxuAimCImPLbxFR 9QYXJlbnQgMjAgMCBSDQo+No6AAR9ec2UsKIjoKnXv YA0mrk9TLSoPVbLoX8O5nGHtN1K3KXjcPm3QTKEqZUUhXWfdJDGDIXliQP4APU7cvaA7PR3CzINxPWUe FUMgyHUwTUw8V03dxWAhSOsbMC1JQRH+Savannah+Zj1MUAFqLNOhSRAiPqRtXJUDTuCtV9ScC8AEq2JsD6Lu JT77yDgjiuWvWScoZK3UQR9yDUFnYKZSVW6XfKOvrZ 4shgXbHLThLSEFPzKnK27xyEUfQQDqYSH2DJOiFr3EAIJqI1JnfbTiaVnftcHgWNKlQEPXYR4FJCfoub ZmyJMuhCalHF68eLjeNZ1TKq1YLoBlAX6och5OaSMpWo1CITDbOm7VMKFmXNHkWQKoLSL7MWKrXsDjGS gkBIBkMBIxJRU3ZWAcGSOaIA0QYtMzWFSmSEh1CxGj ZCGdANUzcq9KZYThNYZrKSX9LGXhWFIfFTOpDQfjMNOjOMRfGGP5KGHjGEBuJB8OJoIoZASkICQcROZt JRGoSVWiga0NREEtOYLqEcGnACQkIWUaWQIsVWqgSPVnVFIhNKZvRVDoHPJfEU6YKzJnRWZoHCFuNiOp JMEaFOXbpg5BNEJgTJNqMpI5IEGvVHJkETAeNGzsCX PhXUE4RXT7CLNlGYHhCD4NDdMrSMTkWHI8TAYaZHUoYXXxno1JTSEwJDPmHQx0SpKlFVCyNUFuNZkiDQ BwTXK4NIG0VDYbWNBnBO8XZfKjXXByCCUfDPvwMMCpNWXpzu1TWXLuCHTeYuD5XwAaWMDfGPCqUDouXN TbEMP3XqK1SSUgHLAlDU5GLgAnYDSvQUa0OFXlDHHi FWHnry3FNMCcGDTlKwGoGVLmLJLnSRGdMUqaPJHfCQE8WSLzTMTqFFZtDE8XFeShHEBxTKa2JmcnKAEz APUbez1PDJUvBGHdHWL0ZOMuLXXyXKSuRBwcEMHrRZE4AaseEWKkQPApSV9DWwCzGLdyALJLSef1BIxo Z5r8IXRiXt8VB3Rdz3WrIeCkAMUKQNuvWD4hneQwUX QlYl4AC9jPDbukLFUvVXejRbZqROIvLZT5BNWsKqE3ZgG2Pex2NyUhUX2jWZO3OJTzTUNzIaMlBLB9HA wyYZL4XjUdXlW3DcYtDcVcRcDyUX4DYb4EJsJ5TEG1nLFmBi3FZHwwJi9XPMFOW2TZBk== ID Date Data Source [id number] 08/02/2020 04:40:37 PM EDT [facility] Name Value Range Interpretation Code Description Data Sumaya rce(s) Supporting Document(s) Progress Notes [facility] CAJCMv5rDvKCDaQb94/BOCbhJALus0ByTMghCBc2IGzuFLVyS7WsDYG4sH7bUBU4ZUaMYwTqKyEdIUHh lbm [file] AgICAgICAgICAgICAgICAgICAgICAgICAgICAgICAg WQFiOHXuWTQuYCMoOSXpLYUtURIvNE2IQOGmTEEgMVZiWIJmLIGiYKHjQIPnYLDgYAGvTGBhULYeVNEf ICAgICAgICAgICAgICAgICAgICAgICAgICAgICAgICAgICAgICAgICAgICAgICAgICAgICAgICAgICAg VKNlHT4BTFJwSXKaJZEqEMOvRBAdEHJxCXWgPZSiYQ AgICAgICAgICAgICAgICAgICAgICAgICAgICAgICAgICAgICAgICAgICAgICAgICAgICAgICAgICAgIC MiKIFnQKVoJBVlVHAkSI3MIAHxIBWdFVEbZUYqMAWwXBHgKNJdMRYkQSQxEGRtZDGxIPVtLOWfUKUkBN AgICAgICAgICAgICAgICAgICAgICAgICAgICAgICAg UQGpSHIkKPMxJYEdWKXkFXUlLSAgREXaAP1MBRTkYDAtNLQyJPWoZIXyDGBeHTSlYTWrHBJbVPGiXXCw ICAgICAgICAgICAgICAgICAgICAgICAgICAgICAgICAgICAgICAgICAgICAgICAgICAgICAgICAgICAg EQIcFLPrEC9TJSUjAQVoDNNgFGQxDKAgZNWkSPFaLA AgICAgICAgICAgICAgICAgICAgICAgICAgICAgICAgICAgICAgICAgICAgICAgICAgICAgICAgICAgIC FsSHGwVUHqKFKfBJUnZUDaCG5DWCNmIGEqSVFeRVRtGPQaSQYnSZVdTHVqCCVbPFUoXADxNWLmDUAaRA AgICAgICAgICAgICAgICAgICAgICAgICAgICAgICAg CXKmZDWqGICdQKAbCMHsICUhJVDwEUOoTBDpAS8UPXErIJGlLQDjZCZtBTXhXGInJOYaTCWgKVSdAMAn ICAgICAgICAgICAgICAgICAgICAgICAgICAgICAgICAgICAgICAgICAgICAgICAgICAgICAgICAgICAg FBDmLHOxVIFyOR6TKQFuRETgSLEfDREjVEMiPFHbGH AgICAgICAgICAgICAgICAgICAgICAgICAgICAgICAgICAgICAgICAgICAgICAgICAgICAgICAgICAgIC KsDQAsRFKhIYBeYRSdFPOmSAPmTJ9XYFIsNMVbCGKxRXGxLTMpUMXcLJPjNKYyUMCtRHNcUQEeYYQqEM AgICAgICAgICAgICAgICAgICAgICAgICAgICAgICAg DBIzTBMlQCDzLGLtGVVnEFPyWAGhRYBbKOVfJFNtVF8CRL52kCRgy0I8TCXqPM3drxf/Zw6QUOqzqeUp cKMpEM7SFgPwPF8rrl6OGyUzOB7zsl4ZSSyAHqFaL6Z3fASjCSKkBYXBFyCcQ95rRMinBb98NLfgEYBz KrNyGYs8Qj8KYjNsE7fnDSUkIqB6YUEfBmC1PRXsZp AwSLltQJ0Fc2HjhYXkQGj+Ma1THX5of7QiNFogOPYtUH6tcl2TZWiEAbVhT6DjpaL6XIZ2HKHmEn9HOR NbEVInvFObSzWrYXQFAdExU5OhlW42TPAHSu4+LQhionVrQqzCXiK7TJSbl2XaUGl3AF1VRIFgVLx6fA BdZOYmB9Kdl3AdCr52NYNgBmmiV6ruxpFjJUj5il9b HO65Y8lsITAGVENljLRaIF4wZf6uHONoNKXvOnIdDAIPDA1LTZWyTFGjzVOoIDRlAWTJXN3TXNytOFR6 XvgwhuDeiNIkQUnvVD6JCISgwwIiInMmUVNQHIn+Dc9UHA8zt2YpDFzqUiMqQT1veu6WNHyAKsPvJ9T9 zVVgJ8S4CZviEq6GMQHlMJUtKcUnYGRNOKrnCI1YBL 8uvtE1AB9OzZRdPTJlXZJmlKMzFMb1D38noPYuEKkmRY1PZKK+Savannah+Ib3LJZRuEUDeXEEpZeMlTFIZNh GnP0CeP6KEv6PlW2MhIZ59gNgfbbUsSLsmPZ4PKH8gBISzKJWLFJ1SjIIqiR1pyrAfGUYjSATUQuEzK1 8gsAYhBWDqYPD4RSEtHb5HCYTpZ4YwpmEunAbmqjMg ANLwHCHBGG1XWMtnycVgwFNzlJqoXL19dPizXM5SMs3XXeBrIW6nvr7YmCQvVo5SWIGsVP3LKRSmLMKy FUDsDKP5QOAkRjDdOMtlPZEzPYYhJLJ8FTMgGHHyQA3WCbRnCWOdGRW8PTAcJXAkTXGblz0OPIIoSHEf XZJuVFOlRIFkHBAjLFjxPNZuIKYyPWP6VXSlUMDnCX 1DKfTxZWLoUFCbYUlmLAAtDSWhai0XUVWyTFMyYkQ5GEPqZYDjHOToEXhmQDZmXXI1SJcmEJPyRAGxKT 1LJyEzUCEiLGZ5KSxkPTPhNOGybp6BQIHwSHMiDbC7YCVvPRXmOWXkCVesIDIqRGO3NKF4QJWbMKHrHI 6CKiVoWPFuMBpjSJEnUIFxYCAojj7COEPlKDFyKWDu MrJfHDHtPPIeYYxqNDNbMWB4HSq8BOUxMIUrWT0QFiGoEDZkHGrmCWKsCJQzIKGqnn9BPBLfIIGwAUD0 CYXmPMNoUAKnIPxnPNArNXPsKIPfSQKfKRSyEE0ZWjOkHTAaFPS5KyWzCPFxWFLerv8WDYCpAGHoTLC5 AFLrGFXkTDMwJUpbXSJtQFXaXObeSKEhASCaOP6GCm QjOGHsWFBuOHSuKLAgXGIrep8PALGiGWWwUjH1TKHjBVNjOCVmZSxdPOWkDXWbUdXiTCNjCJIjOS5CIc FwPNEoINT0PeLgUSGnBPWjha3BCDGfLQTgFph3RSIqIMUfIUDyFPfpSDMuPAR7WgR2DJInWUGyQT1WVx BjMUSkLMO8DMCsCTVsQRJvyy1GMXRyFLVhCZN2ENIp TWRiCPZlOGw7pkVluUXtFYg0EQ5CK2CposLlPxeEVi3Gp192CSQ2CITeZa5HK0wpYm4wMOKtMERKSe7Q RFw9NYI0ZgE8QRZiXzA3MFieIGErVBLpFrvcXKX9FKL5WiW+KLo3HjToSSg8B0QuFKi1QBIrMqQ8NhR9 YAT6BMUtSqYmQL7qXDZHEc4+GXktfPIkzOoxLJUTHuE1Nyf3DQquSZARIj8D ID Date Data Source [id number] 08/02/2020 04:32:30 PM EDT [facility] Name Value Range Interpretation Code Description Data Sumaya rce(s) Supporting Document(s) Care Plan [facility] OCXIGz2yOmZDIvCt39/INYetRQFzj7KsCVneYMt5QHggDCCkM5BuDQD0vP3aWQK7QMcCHwNgIjOsYOEt lbm [file] 5L6wcz2S+a6XlhLa7FUc14BFAQJuRm88pn48E3+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 [file] AwMzIwMiAwMDAwMCBuDQowMDAwMDAzNDAzIDAwMDAw QD8LWqIaXRXmHXB1IShqZCYiRIQagg1UTGUlJFMcLOJ8UlPlWJNiMYNzAYcxIJJoSYW9VhG6BSTpXWOm KL2FNuYyJVEjORG5VoLbIQYmNIWdyl3LZWLwLWFeBgK4WQMdIGUiSWDtYEphBKPuDIU9EKnnSPGjUXIq IF8VFnHjZUWcFTk5XQQtSMYpEBCohv4AIZOqCTSkRV P3MOWeHBLuBXNeBDfiMCTtFZV8ABd3WDImBGGqFT0UXoTfQJIhXLurWojuJZQpLIUopu9MIKCoHMLaER BpUfZxDEGtLZUjCHilGLWwPHH9RPNsKXDeGFUnLE8RCpMcIGOrXfV8JUKpZHCwOZHxai9TMKBiQQMiCO OpBODiLSDrHPYeBBcdGCWmDLYxONSyUJQnALPaER0N NcCzBPKcZsVnUMSoQEXsIMTdah1CZTWhOXWtKaP3NkLsNSJdVLFsYAmyFIBjZIGeNeHaANDqXMBrBI2D DrZrQGLpJiU2DGeyCHRtCORfjy3YmERmbKtwgk6MRQdRYw2KmGkpNJS5XYxkOj9drKTsTnJqDTMAMh2C ojVbZGNqHAVJQTakVBKpSMFoYTC2TWxtFwauMzVjPn A3AjdsWTW2HTI6QmL5XNGtNgL3EeH9QpUrO2LtDCKkNiJlGAP9OAP1SGEkGCQ3SIS5PrS+MY4yTCu+Pg 5Xh3WytcA4lbBjOWwcWuQ0Cc8YLINKD9HSUi== ID Date Data Source [id number] 08/02/2020 04:30:14 PM EDT [facility] Name Value Range Interpretation Code Description Data Sumaya rce(s) Supporting Document(s) Nursing Note [facility] ENRQRz8zBlREXzTx82/IBXpgRSQyf7EnAEpoPBi6SUdmOBScW5DjDIF3lK5qSMK7OLzHHdTiUcTjPJVq lbm [file] KwOyEUv5CjXeJBAuDlU+CK0eQXo+Ig0Yd0GqhvR5rdTfHYkoEIY7Ms5BEKCTP5WQZz== ID Date Data Source [id number] 08/02/2020 03:43:26 PM EDT [facility] Name Value Range Interpretation Code Description Data Sumaya rce(s) Supporting Document(s) Consults [facility] KVLYDi6rQjXFLpHc90/DGFrzZFVch4DxFEfhVLq9SAvfZSRqC5TsELS5uB4iTNB0ZQlURiWaZmYjBXBh lbm [file] VPRg0K ID Date Data Source [id number] 08/02/2020 01:41:23 PM EDT [facility] Name Value Range Interpretation Code Description Data Sumaya rce(s) Supporting Document(s) Progress Notes [facility] UPSVXk7jIkFLByWp50/CTVahHMGbm4FaNJnuJJw1EDaaOMDyD3WkRCO0hG3yXQP8OUkTHsPaJaCaJGCf lbm [file] FjRD1GFSh= ID Date Data Source [id number] 08/02/2020 01:29:48 PM EDT [facility] Name Value Range Interpretation Code Description Data Sumaya rce(s) Supporting Document(s) Consults [facility] VZVWJy0fChSAXtFo68/ZBCgaIIEex1AsSLpnBLj0HVdxPAMnZ5JbWZR4sH5wRLY4KEeAYuEuQzKkELTc lbm [file] IJAd5rYWWufs8z/js2muWQKOzynAziJSS+wP4+I8LG+EDu2jQoMXc+ug8FdLnjWeLIj5+AOlTqezO/Framing Mechanic [file] +0FX89zqANFks830cuY6ggQzif0ZnLOkWb2aUB11Ja8WHqK+RECIO/kiD97rkirj9vp8sS1zWTcZH1Naz3T 4R+VIzRd+GXj9w48apCDtTvULidheaCsmd57xI1R31Q3vv7mWVRI1ihd/3xp0aWrB/uXztoz4NCakC3c oI3CoGuH+mIFIWQiUZGW3dYWdZbSqt12XYqQ7L570A 2vO1skF/vzGTYdNIOjYEHCOR29P283X+M1OiiYYIdOTKvAdvEcXkww3F/cH+hH6M1xByozNFC75KkZuV 6nCKCxKw1dnYQ3PjdNrHpfArTsrHDa8T20tHgN60WV80mPPLMKICRp8C+1ot9U8ajfauis7wE9CplIQM X8ddQHt5pqa9/bqPR5zJRyVe6EbTB/ftAKKUPVuPa9 +W1IVv3foQk8FaIneF15E2dCYVN+nS7UNRpwZhbRb6T/OV0G2hge+1HiwAakgK2LbGGXEJPlFk4jS0DA P0M+thAvCMVskZg55LZ3tfg1+JC69+D0uQ92FB03qoom3S/5vTc/g3ObF/zfCpn/xB5YM6J+rKanJ2k2 Tfk+DeWcfttZnQ2RmDQ27mlGLxElqoE3Bs0qfGJRZZ QaDyefRN/wfHnem/JUU8QfbTLjXv+S7hQWxLEC0JsVwhxfl2/3zYNcxnlRepm1E3AqLCzUvWkWOcCUV/ J3gQdh44SC+S5VoLrZdjqhItcRvNU94WqncWgfPDSDN4aAQzSaog/TzXt+DgjLokzUdXLZ1fS/BM5E49 owKFwgZaFwG7tlw23/HDkYPfUH1xVTocaW3ImWbEqD PwXUyaVpoDRBsLBmk42NxBan2qqko4ydx8aXbzcrO73frWfcd1L+20ReyLIXPuA+2Gnl53Y0W3Y8AYy/ U3U8wVvqteVZFV0/DL9R0cpp2s4VYEjvqi3IkFz8OpBo5CEaFy+TFNnDYZDpU7MdbD/OwsP7Ck3/h/sC xlQ9n0nvQdrM9cHxZq2K9y7Y2jK7d+G78oc3Ca+9qK iJXlgeOeFJcJDGxfYFqKs7aRQx+npCnm+b5JbnqtndgM1L8xSlojUYe8rCq4uxv9ZHdRa44P9QBJ+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 [file] ICAgICAgICAgICAgICAgICAgICAgICAgICAgICAgICAgICAgICAgICAgICAgICAgICAgICAgICAgICAg ICAgICAgICAgICAgICAgICAgICAgICAgICAgICANCiAgICAgICAgICAgICAgICAgICAgICAgICAgICAg ICAgICAgICAgICAgICAgICAgICAgICAgICAgICAgIC AgICAgICAgICAgICAgICAgICAgICAgICAgICAgICAgICAgICAgICANCiAgICAgICAgICAgICAgICAgIC AgICAgICAgICAgICAgICAgICAgICAgICAgICAgICAgICAgICAgICAgICAgICAgICAgICAgICAgICAgIC AgICAgICAgICAgICAgICAgICAgICANCiAgICAgICAg ICAgICAgICAgICAgICAgICAgICAgICAgICAgICAgICAgICAgICAgICAgICAgICAgICAgICAgICAgICAg ICAgICAgICAgICAgICAgICAgICAgICAgICAgICAgICANCiAgICAgICAgICAgICAgICAgICAgICAgICAg ICAgICAgICAgICAgICAgICAgICAgICAgICAgICAgIC AgICAgICAgICAgICAgICAgICAgICAgICAgICAgICAgICAgICAgICAgICANCiAgICAgICAgICAgICAgIC AgICAgICAgICAgICAgICAgICAgICAgICAgICAgICAgICAgICAgICAgICAgICAgICAgICAgICAgICAgIC AgICAgICAgICAgICAgICAgICAgICAgICANCiAgICAg ICAgICAgICAgICAgICAgICAgICAgICAgICAgICAgICAgICAgICAgICAgICAgICAgICAgICAgICAgICAg ICAgICAgICAgICAgICAgICAgICAgICAgICAgICAgICAgICANCiAgICAgICAgICAgICAgICAgICAgICAg ICAgICAgICAgICAgICAgICAgICAgICAgICAgICAgIC AgICAgICAgICAgICAgICAgICAgICAgICAgICAgICAgICAgICAgICAgICAgICANCiAgICAgICAgICAgIC AgICAgICAgICAgICAgICAgICAgICAgICAgICAgICAgICAgICAgICAgICAgICAgICAgICAgICAgICAgIC AgICAgICAgICAgICAgICAgICAgICAgICAgICANCiAg ICAgICAgICAgICAgICAgICAgICAgICAgICAgICAgICAgICAgICAgICAgICAgICAgICAgICAgICAgICAg ICAgICAgICAgICAgICAgICAgICAgICAgICAgICAgICAgICAgICANCjw/zMUbF6noeWEirzF9L8hsJb3W Rf3JSA9os8XaJAXpUNcfiiWqUrvTQoPpFRVzTqpQOv q8ETbgGQ4NpCFzU5JgQ0MxWAvwBQ1OSKZpABFphZMrJCMrYQOjEdT4EUEdRMboEM9HvHQdFGpbLPObFS FkWhRsNAIaDWNtBXWyPPRiBQAGVSNsVRCeNhXxRKKpPRCmOHvuRHCYBNT9QNIwRtVrNETzKUUgOA6XZG ZsF695onWyRI7QRy0OHqRmOC7gkk7XXQluEFByTrpF Chb3EFcvWL4RyROalEO9QGGbHLMKYjMdK5xuw3JhKVlzIUXHACqeKV5Ve2BegGChHFs+Km8RWU2xq1Uz DLh0EJExGH6aap7HQXjJGdGzF1MtyNfiRMBchuT0yMWbHOO7IWuxtgJXq6zkbW9hnpzhKIDiJVWyHGJv NXDwOjUzHHHnZHvrVpOSQFxOHdMiG1Qas3UhQzV3OL WwBdFcKBquKONpPhV5AR57mXvzZS8YKTAjJGAjKH86LMK1RCLvAo8YPv0YAdCrIB3gry1PFSshKISwHi dTOtp6WHdxLE6OuDAuD4RuhBOpf5vNNeEnZ9WKOFY1KYSrOc2PNFDvZjBiCZMiAJfdXS8bVZQoZWWOkO dmwqN5WJ0HMN4ewdKvEF5TVxQjTt9oLh8EEfRiG0Ya L0YdXOJbWKETKNsdVD1RMZiyBF1hUW1Pp3EOaVEpfM1tpj6LUKLfPKCuLqffhc0SJiltZ7X8vOtrBALj GFppXRTHHIewBZ1HTSAhPII7IZO3FxKhZVSLBeEjW63qLN2OF3Ivu82jIuK5FZKbRjOrOHvfAI26jBcr lhOvmSEokWzdGD8WDv5+DQplbmRvYmoNCnhyZWYNCj GdIBPTSsFxVPIpXDKqGQOnSoG9TdHdDj9CLGLqDJIuLVMcAzZnLHBfKBEiUXduQATrLLF1MlN1RZOjNM TzDA7CBtXuKZItXFo8FfKkAFBtNGFslv8EWQIxJCBgDXE3BzJlXEHlCMYqTEhiTDOaBKFuJli8FMOlUO KtEZ5VWyVvYELwQOP0RBZsDCJfNWPzbu8CWFXrJEPr JCVuPmDbITBjLJAuVSuaFTWaMRZ0FhApMUSlNBUiYE7WPbYjOJYoXFy4BVVwQDCnPYGnsr9ZCINtQMTf BYqyHXSvRCIePRGcGPsiKFFvGNHrHLN3NEDrCZZsZU5WHuRgCSMdVZSrLlNxNPQtRSLkub4AOUDdNRLu EOZbMKFqZJSiGOGrOQwdZEJlSTQ8XgU0ONKrDARdQA 2HBkByGPUwIIl1EdLvTSYvJROrhn8LLQNmRSUoFsljGWXoIDZdFVNsZKfnZPStAFYcWnG3CMCoQNJmVZ 6CUhAnATLcErX6LmJyISLhANUhss7WLAMkNMHmVviqEyWaMBFrWBOjEQqgYPKeWOIgMFH4VOWnAGLmFU 9YAzEyZXMcPlEtBeYhHDJiSYSnbj6SGWXsQIZyHVHp UOAfXAJlZXZgKOmpELPqSFQ6YFg2TJJmMJCmMY6TMuMeDWYwNhZyREXfQQJkVCIcbj4KENDcUCYgFyW3 RRVhJIMlFGZvNHycHTFhEDQ2XLW2HRIgTSFgTB9LRjTbSHXjEaz0OyVhGGKoBASchx6RQGHmOYEkMigd CSPsEOVdFEPrBMwhQZWqTCS5KHy9NYRaPGYqJH7LEz PkWBQtAwxkGXEwSSGcREJyhf4KSAKvOFGbXCK4KFBbCBTdWKVoOXliKDFsTECwMeCxUYHjACHjKP6JNb NtXVTjJmV5QwQoPTQcYHGflx8NRELfGSOiXBZhUVIwDMUvIQXmNTsqZLRnPVAbCZg0QJYeANDbPY0VTi OaEJOeAkH4ApyiGWUqQMSwjj3CLLAiXVIuVRv9KiNy BGPcCQKvEPciXEFdEDZ3VOL6NPOfWBYoOP1LAnNwMBGiCIPxBODoRSXtGPRmyz0VMZPwSWV7DYB6ZWGe BQOcHWFqAUjaRWPgMVD7HwQxGLXpTZLmPX1FNhHdVSEbZNO2NTZzVDTnBEZtfz8TXNYaAIY6CbR6MfPc ZVYgBSUvLLejOWFxTKM6MHD2ZPMaARFdQL0HYkKbYU CiWVh8DhSjPWRgPCSkwl7SPSXnGQJ8DNY5IQQnSPAkKQQhAFdsXGDhYYH8WaeaTGRnKONxWS8KMdYcCG SvMYj0UXCeXRIcSVNdcx3IUJMbVCE1QKr3CGWhJMUbFCKiRQt7euHhiVLoOXd5TT4XA5WtglZvMUFHVz 9Dp403VZG9ZUYsWa2OW6etFd0pNMLiBHOZZy8ZRSk2 LjCuO5N2XQv1LIPyDVSqQGFgTOLhTNfvY8M0BXEcXYq+KMbjJ2T9BZk5XmUtO8I4VXUwMtLqYKYwB8Ue UDc5LVL7Ow2mYKNSBe3+FWxnwFNqdPwoQZJWQaIdPZW4HJlcMCZSEu2M ID Date Data Source [id number] 08/02/2020 01:01:00 PM EDT [facility] [address] [place] [address] PHONE: [phone] FAX: [phone] Name .................. : BASILIO Torres Acct Number.................. : [id number] ROOM. ................. : TR-1B Number ................... : [id number] Stay type ............. : E/R Discharge Date......... ... : Admit Date ......... : 07/30/20 Admit Phys .................... : MICHELLE PA Date of ....... : 1980 Family Phys ................... : MITA ROCHE Phone .................. : [phone] Age ................................ : 40 Film# .................. .:[id number] Sex ................................. : F Unsigned transcriptions are preliminary reports and do not represent a medical or legal document CT ABD & PELVIS W/ IV ONLY [id number] COMPLETE:07/30/20 16:49 ANA CRISTINA [id number] Reason(s): Abdominal Pain CT OF THE ABDOMEN [...] air or ascites. Page 1 of 2 [place] [address] PHONE: [phone] FAX: [phone] Name .................. : BASILIO DAN Melissa Acct Number.................. : [id number] ROOM. ................. : TR-1B Number ................... : [id number] Stay type ............. : E/R Discharge Date ......... ... : Admit Date ......... : 07/30/20 Admit Phys .................... : MICHELLE SIMMONS Date of ....... : 1980 Family Phys ................... : MITA ROCHE Phone .................. : [phone] Age ................................ : 40 Film# .................. .:[id number] Sex ................................. : F Unsigned transcriptions are preliminary reports and do not represent a medical or legal document CT ABD & PELVIS W/ IV ONLY [id number] COMPLETE:07/30/20 16:49 ANA CRISTINA [id number] Reason(s): Abdominal Pain Lung snell: No adenopathy. [...] rce(s) Supporting Document(s) ID Date Data Source [id number] 08/02/2020 11:01:00 AM EDT [facility] Name Value Range Interpretation Code Description Data Sumaya rce(s) Supporting Document(s) Glucose, Fingerstick 130 mg/dl 70-110 Above high normal [facility] The above 1 analytes were performed by [facility] [address],[id number],[place] [address] ID Date Data Source [id number] 08/05/2020 11:15:00 AM EDT [facility] Name Value Range Interpretation Code Description Data Sumaya rce(s) Supporting Document(s) Total Protein 5.8 g/dL 6.3 - 7.9 Below low normal [facility] Albumin 3.1 g/dL 3.4-4.7 Below low normal [facility] Alpha-1 Globulin 0.3 g/dL 0.1-0.3 Normal (applies to non-numeric results) [facility] Alpha-2 Globulin 0.8 g/dL 0.6-1.0 Normal (applies to non-numeric results) [facility] Beta-Globulin 1.0 g/dL 0.7-1.2 Normal (applies to non-numeric re sults) [facility] Gamma-Globulin 0.6 g/dL 0.6-1.6 Normal (applies to non-numeric r esults) [facility] A/G Ratio 1.14 [facility] Impression No apparent monoclonal protein on serum electrophoresis. [facility] Test Performed by:[facility] [address] Director: Julio Gracia M.D. Ph.D.; CLIA# [id number] above 8 analytes were performed by [facility] ([id number]) ID Date Data Source [id number] 08/04/2020 11:07:00 PM EDT [facility] Name Value Range Interpretation Code Description Data Sumaya rce(s) Supporting Document(s) Tissue Transglutamin. Ab, IgA, S <1.2 U/mL <4.0 (Negative) Normal (applies to non-numeric results) [facility] Test Performed by:[facility] [place] [id number] Director: Julio Gracia M.D. Ph.D.; CLIA# [id number] above 1 analytes were performed by [facility] ([id number]) ID Date Data Source [id number] 08/04/2020 11:06:00 PM EDT [facility] Name Value Range Interpretation Code Description Data Sumaya rce(s) Supporting Document(s) Celiac Disease Interpretation See Ref Lab Comment [facility] Negative serology. Celiac disease unlike ly. However,approximately 10% of patients with celiac disease areseronegative. Also, patients who are already adhering to agluten-free diet may be seronegative. If celiac disease ishighly clinically suspected, consider HLA-DQ typing.Test Performed by:[facility] [place] [id number] Director: Julio Gracia M.D. Ph.D.; CLIA# [id number] IgA Immunoglobulin 136 mg/dL 61 - 356 Normal (applies to non-numer ic results) [facility] The above 2 analytes were performed by [employer] ([id number]) ID Date Data Source [id number] 08/02/2020 04:33:00 PM EDT [facility] Name Value Range Interpretation Code Description Data Sumaya rce(s) Supporting Document(s) Haptoglobin 115.0 mg/dl 30.0-200.0 Normal (applies to non-numeric res ults) [facility] The above 1 analytes were performed by [facility] [id number] [place] [address], ,[place] [address] ID Date Data Source [id number] 08/02/2020 11:38:00 AM EDT [facility] Name Value Range Interpretation Code Description Data Sumaya rce(s) Supporting Document(s) Vitamin B12 324 pg/ml 211-911 Normal (applies to non-numeric resu lts) [facility] Folate 8.84 ng/ml 5.39-9999.00 Normal (applies to non-numeric res ults) [facility] -----Interpretive Information-----Folate Deficiency: 0.35-3.37 ng/mL.Intermediate: 3.35-5.38 ng/mLNormal: >5.38 ng/mLPatients routinely receiving high-dose biotin therapy may show falselyelevated results. Additional information may be required for diagonsis.The above 2 analytes [address] [facility] [id number], ,[place] [address] ID Date Data Source [id number] 08/02/2020 11:32:00 AM EDT [facility] Name Value Range Interpretation Code Description Data Sumaya rce(s) Supporting Document(s) Ferritin 22.9 ng/ml 3.0-388.0 Normal (applies to non-numeric resul ts) [facility] The above 1 analytes were performed by [facility] [place] [address], ,[place] [address] ID Date Data Source [id number] 08/02/2020 11:32:00 AM EDT [facility] Name Value Range Interpretation Code Description Data Sumaya rce(s) Supporting Document(s) Total Iron-Binding Capacity 382 ug/dl 250-450 Norm al (applies to non-numeric results) [facility] The above 1 analytes were performed by [facility] [place] [address], ,[place] [address] ID Date Data Source [id number] 08/02/2020 10:48:00 AM EDT [facility] Name Value Range Interpretation Code Description Data Sumaya rce(s) Supporting Document(s) Reticulocyte % 1.35 % 0.50-1.70 Normal (applies to non-numeric r esults) [facility] ATTENTION: Effective 01/15/2018The refer ence range for Reticulocyte % has been updated:Previous Reference Range: All: 0.5-2.5 %New Reference Range:Females: 0.50-1.70 %Males: 0.51-1.81 %The above 1 analytes were performed by [facility] [id number], ,[place] [address] ID Date Data Source [id number] 08/02/2020 10:23:27 AM EDT [facility] Name Value Range Interpretation Code Description Data Sumaya rce(s) Supporting Document(s) Progress Notes [facility] IZPNMo9lNfRJKbRf07/ASQwsBINnb8ZxACshIKu4ACdgETTyK0OqXUK5qI7rZFQ5TZqOFpJeSlJpKHLx lbm [file] ICAgICAgICAgICAgICAgICAgICAgICAgICAgICAgIC IqQHNuKKDuTZRlMCAlFNTeJCWjGAPfMXHlTTMhDXVvWFYuXXQjYOVyEA0ILXXxBRNfWCXkVBGdHSJwMW AgICAgICAgICAgICAgICAgICAgICAgICAgICAgICAgICAgICAgICAgICAgICAgICAgICAgICAgICAgIC SdVUWpKSZkAXAsEMMqGPFlHIJmVDSpGS7KCEWyEPJd ICAgICAgICAgICAgICAgICAgICAgICAgICAgICAgICAgICAgICAgICAgICAgICAgICAgICAgICAgICAg YPFtJBDjHKWmEDSkXOObRDCzESDcDVGjWHAuSJYvUIQhME1FIOTgHVIoZXXcSNGqTLQoTWZxQJCkUBDi ICAgICAgICAgICAgICAgICAgICAgICAgICAgICAgIC UvRFAiDVTbTFTbKSZxQVFmPKJcNAFaSYHgXUMbULZtXSHnACOmFEYxRRXcEQ2JLJUgQMCtZQUqMVFsIK AgICAgICAgICAgICAgICAgICAgICAgICAgICAgICAgICAgICAgICAgICAgICAgICAgICAgICAgICAgIC KeULQbERGiDWUqPMRzNJLiXTUzHRDiEXBpZO9RJMUc ICAgICAgICAgICAgICAgICAgICAgICAgICAgICAgICAgICAgICAgICAgICAgICAgICAgICAgICAgICAg XHFaMMJbQEPjSRPfNTWeKMFkFJLqCIKjUXYqWAAgZMZaDVDoTW6TSSYwVFDfRUQyFBCeVWBxRMRoCWSb ICAgICAgICAgICAgICAgICAgICAgICAgICAgICAgIC NhGAEsABCfKXCaPOXeSTMyXDXvTQUdQPOwMKHsYSBfVZNgPKXgTOEqEOKzCBEiTJ5TTIEfKYZsTBIfDB AgICAgICAgICAgICAgICAgICAgICAgICAgICAgICAgICAgICAgICAgICAgICAgICAgICAgICAgICAgIC TiYRYgIHOeHSCcSOLmRQSrQFLoLMExHDVzRJJmBR6O ICAgICAgICAgICAgICAgICAgICAgICAgICAgICAgICAgICAgICAgICAgICAgICAgICAgICAgICAgICAg MDAfJUNdJWPjGGKpPLSmUOUfYJPgIQHfNUNjMZQkIZEpFLAyJLYaNS1VYJOhAKKcYSKwZFRhUUEhNOWm ICAgICAgICAgICAgICAgICAgICAgICAgICAgICAgIC MlOAKaNLImLVCbABGbYZFjTJQgEZNbGIGePKBvJAGpWKTcAXJbWQXiSPAbYYXiSNVkWW5QOC61nASpv0 K4BPFbCL9pdlq/Fr2TUYcafaZkeCAfHE9XLiHyKO4qvc2PYqOuMS0eqf8UYOxEAaHcR9L7yGPgLMQvQH XOUxPaC92uHQjyFq20KJxeXRBcJiGoMWt6Hb8MYwLh X4cuKDQoMeC3FAGlJaPlMBolGB1Fk8FybYWjBJy+Fr8SZM7uh6YlBJgwJFTfGH8tdu6YOQyAUsRlC6Va fyC5NIO3HRUyDg5ZFBUwYQQjjRIjAeSbQGSCEeYgZ3TseX46IVMMDg7+XQnvtkHnNvaSWzG3LSOeu0Hi WXx6FS4RJVCjOYj6uNOsXUAsY9Ycf9MoBp74HTSfUz pmLHBvwHCJBEGaswMyiFWlNT6tSw2vZAKxHGAiJnTcRFBYUE4XXDViCUQwbNTbYABsLTCAFR9VASknZN U1UbhdhdYbgEVvRMusZG4LVJMkhkIrJxZvETKXUVd+Yd8UYH7eg7TdGEsvBcUfHO4mgi3IGRrOQlHyN6 C4kOImH9I9UMnuDd4ENBQrRNYsQuCtJOXVESbgKS0E YP2zvsL2VY3LlMIuABStCMYxkYDvSKu5L82ysOLdCDseRC7UZJG+Savannah+Ad4FMXHmJVQcYAKeVpZtMGTR VcLmZ4CnK6YEh7GpH1OjPX60kRjfxaIoPCuiKB9FUT3lKOFhAOADFF6LpOIzgQ4linLnQEMlRWQISjTl K25gcVFiKRViNUY5YZBeWz3NQCSaY6JuqeAeoSljxt HtRUGsYOVVJM8KUVoobbFakKXmpQtkGZ21kEsxWK5SJq5PPaFfKB2xga2TaLPwMf6DTQHhRU2YRHMfZC QyZTYtVHV4MWYbBjEfMXqqHUDhJYEmPNE6YAEvHCQhWQ2COgBnMSMeVcD2NDRqVUUuXUYnnh3ZSCTzCP VvJaE6UBJnJBXcUAIoXRwaRGSnTKEhNAH2WBEmFKBu VU4IRtKtIRTlLBS3OfXyUNAbECXiqi9SZTUvPIYrBeTaTCNfQZYeEWJmEIxmUZPyTRSiWNc8ZWPuIZHy QW6EYeTkFTTmLFPmEEyeYMDkLVVkqj2HGGNfSCYvIuM8BiYxEYIqGFSiWOvdJUDoHLT0WrFtVMJzHCUp DD5AIkEjRMNeZOP3TjgrBYIzJTMefk7JMWTmHJOhRN slTAXyOLQgNGKvTTftHKJbJQL9RGmcLPZdZCLfYB9TFwWoNEReOEgtUVMmZBZiHBXggt8QTLNbBTKmZx L5ISIjTLYtFDToZWiuTGUgJEW6ZMW3AIAtODWjBM3ZNxJuFSNiPPc3CLArQZUnIAHfid8BMYCtWQZoUD mkOSUpXNZuJLGlNDtxECFqJRS6CLA5MVTdHRUrYZ0Y VuPqTKPmSRyeTJIzFDIlJNAhyd6HHTFaJSYwXUPxNDAxNWVlTYEiCNzwWRErVQRkWRWbJXHfWRYpIG3W DoPzQXYfUtX5RDObQUWxNRCfht9OGMAqPZTmKMKqVPDrSCJlYECqXMoiRHTmDIAyLJYnPYIrVXZvND8Z KxCuNAHuErY2ZuXeEEXzPJPurq9QLELzSQNiTbP3To PeRIMcFPZdCXl1fhLdjNMsJSx5OX3PD5LrvkAuDtqKOs1Mc397AQJ6FUQjQl3WT2wkLw4cYGLeYYTCLz 8UTCz0OZWqKTItJCD6RYO1FeTpK6VcXnnoPNy0G9FaRqDrCrV+QTb1AQN1I1HjVbkeSQNcUSG0WIN2KM J8WaxdSOLnEXIkFt3bZNTQEu1+NVdsqPSxdYfjWJYDMeZdSJIhHYmuHZGXIv0I ID Date Data Source [id number] 08/02/2020 09:50:00 AM EDT [facility] Name Value Range Interpretation Code Description Data Sumaya rce(s) Supporting Document(s) Glucose, Fingerstick 100 mg/dl 70-110 Normal (applies to non-num zeb results) [facility] The above 1 analytes were performed by [facility] [id number] [place] [address],[facility]#: [id number],[place] [address] ID Date Data Source [id number] 08/02/2020 09:12:57 AM EDT [facility] Name Value Range Interpretation Code Description Data Sumaya rce(s) Supporting Document(s) Progress Notes [facility] WFKEWi7bXsQSYbMh96/OPGjpYJCuw2FbDBmgPXe9PKcsELZoB6FpEJD7gQ0nFDS3TPmYEwBvIxEqMEGg lbm [file] AgICAgICAgICAgICAgICAgICAgICAgICAgICAgICAg EPRxHNSlAOHdIGXrAHOtOQHtUSGuCD9LZHCyLNAzDLIiVLAaSFAaAJZxTEKbXYEuQZSmTWLuQHPtKHTj ICAgICAgICAgICAgICAgICAgICAgICAgICAgICAgICAgICAgICAgICAgICAgICAgICAgICAgICAgICAg AENdBZ7GJOOoRKOnOFDsCMJjWSYjUCAjBTKfAOQbWJ AgICAgICAgICAgICAgICAgICAgICAgICAgICAgICAgICAgICAgICAgICAgICAgICAgICAgICAgICAgIC ZqANMqXHNkEEVtEONoIR7FUVTmMUIyQIEaPZEeEIZpZYNhQVSbCFHsBRHdWBSzGIOcNEQoXPBvYGXhXS AgICAgICAgICAgICAgICAgICAgICAgICAgICAgICAg HSUgIYBpWBUfGTNlXWUsPPApKOLeKUKwXQ6IZHBmTIIjGWDvGRLtJFWtTEQbIVMeJCYkTJQcROIySYNi ICAgICAgICAgICAgICAgICAgICAgICAgICAgICAgICAgICAgICAgICAgICAgICAgICAgICAgICAgICAg VBLxDLZhMS4GNASaGWRjOYZxJGRtNZUgNSZkDXAaHF AgICAgICAgICAgICAgICAgICAgICAgICAgICAgICAgICAgICAgICAgICAgICAgICAgICAgICAgICAgIC YoCNMwVCOwSGFzECNmCCBuKN0PPEJnQRTfERHvIPUoDXFxVYJeXFDyESKbNHVuEYHhZLSnLDIeDHBnKH AgICAgICAgICAgICAgICAgICAgICAgICAgICAgICAg EOQsECOyTXZeXJZkUCYiTRWlHEKtSBKiLMGhHG6FGQVpVBNnQOLcBODhEARbORKqIZKjXSPzKCNnLDOw ICAgICAgICAgICAgICAgICAgICAgICAgICAgICAgICAgICAgICAgICAgICAgICAgICAgICAgICAgICAg NJTqFGKdSLGsQK6IEBHpDYAfLQPaNOIgYZCyFVNtVZ AgICAgICAgICAgICAgICAgICAgICAgICAgICAgICAgICAgICAgICAgICAgICAgICAgICAgICAgICAgIC QnAXAqSHQoFRCtIVBeMOLyFUQrJS3SFDCwIBLqKCHlNNRcYPApMBCxSJGgUPJdRLOoJKPcPRMuJULmVR AgICAgICAgICAgICAgICAgICAgICAgICAgICAgICAg VWZwFCJpEQFnUTTkFNTgUTGcLJIbKWIiDNPtPBXtIK6VZK73gVDtf1F2VSSmEZ8spbd/Yh2GLQufesBt pSYxEX7YRgEiOQ3php7CTgClJT1jcx2RLQdFFaUuC7D7kIKxJNWpCSZSErPaA70dLPlqTg07WBkvETAt KaHdGIr8Nv4UJaDoV7aaUXFsLiX2VENjWpXjECgtDU 9Zg4FfaBFcPKz+Qb2JUQ0xh6GrEIzpMCPmYQ5mct6CAFdAUqOoZ9DnkgS1QFAgKNPaEr2FYZJbCQKqzC CbDSBtZXMOGnQmB2AlkK12NEETHl8+ZSyhkcPzOjxXDlBnBIMzj1VhWXu5PA5PHAUoXHo0vTChVDDpP6 Xyw6OmBe42ZRWaPihgIHC5TSasvNUhhoCgKWNJLXGk oIPySD9hUb5sYWLmCBY0VoXlZYTOSA2LDSSwLFIpnTSzWNLqXWPHAA0OHRqbELA4EfjvddCrwDVeAZxl QZ5ZHNIdajRkTbHjVNYCOZy+Nc8YUD3wz9QmHEedAeXoDM6wyl0ELDzOWpMyH1Y8iZSyE4L4QCvnPq5O XNFdZDXpWDbwPBKVTAefYK0TVX2ducX1UN5McXUpCF NrYQCqpVOsVCz8L71ffNHxZLbhUH6AZUM+Savannah+Vl6PJRNbBHBfYBHhLvPgHGLYFkMhC3MsF3YHo5KxD6 WqNZ05pLjyumBsMXkbBF6IPN6vASAtVLRBJI1HlVXdiJ4tezVjQQTaYZZFEeUhT74iwNPlORGnOYU6HP BhYk7HOBOlZ1JgcnQchXubjwArMTQlMZSJGV4OJKel pcGmyXWdtYknTG48aFurRY5IAq0GWtQbKN3pxu4CnBNqDd4FCDQuTi7RGZBtYJOuZAGjMLV3KANlDkMe XLaqEZZrOQRuVYW2FFPvNKOyPB3JFiLdJIWcLTQ3URPaOUZaUAZlaq5YIGFxRSLlNGL7YXZfMHEtLHSg BZopJUYyLIAaCHR3PTFmXWPlXD7JTrLhAUFpGYKcKS VsTSViGVKyra7RIHLsDZCpGKUnSCBqPYWvQZTrWDqvVLYvTKOzAgB6JLDjRWQtCC7EBmVoJEIdAIL7Uv eaIWOlIWOavv9NCWEzMNEiZvl5SiTpKGJyGUIdCJftOLGhMDOiOtLdOEYnQZBuUF8XIgEiYRWxZDX1LA fuTFSvKUKkqh3MOARvFUYdHAP8WDMoZGVzQAQdZUrr KCEcDWU1MUZ7DVEcIVQzRI9ZAtCfGNClFNVzOCSqFUHnNOCmum9DFQBzJXZdUPQkERLwBSFoKEOzMMqv DEGyDEW3RmmhLFAvBTTrHT3HGaCbFMWnFCP9CFImPIBeZPMjdg5OATHbEVDwWry7AAIvTALuEZYoMZxm VCTpSMD7AiE2WWXnIYRnEN0ZInJdBSEdLIf5TXprKQ FoGFKapv9GCRFaMXVeNWvcGLAkGRHiVHRyYCjcMZQmQRR1OUf1QTXsZNIuUG2AFvPwFUeqMARBEki3SM erQ4c0SYJgBx6EO0Qdk2UfHiVlSTYKTOqzPA5sbwAdOYZwCy4BN7eKDdt6ZFV7ZrujISD6LiD1FXU6TP QrRMK8UiqeBTEnHAHyHv3qANZ1DPlsWJZ6YmA2FXHq FNCjTuYeSLpqBaK7NaQpWyN2TjGbVC1GTm8UNcV2IIJ0pSYpXo0MWYWuKM9FTYSKJ8ZCWy== ID Date Data Source [id number] 08/02/2020 09:11:01 AM EDT [facility] Name Value Range Interpretation Code Description Data Sumaya rce(s) Supporting Document(s) Procedures [facility] VULBBm1hPsYSJgWz06/QNLlqOJDlj6RtBSkcOWp9FIgiNCWdR6VdREE8nG1pIWN0JBaRIuYlFzHhEJCi lbm [file] ICAgICAgICAgICAgICAgICAgICAgICAgICAgICAgIC AgICAgICAgICAgICAgICAgICAgICAgICAgICAgICANCiAgICAgICAgICAgICAgICAgICAgICAgICAgIC AgICAgICAgICAgICAgICAgICAgICAgICAgICAgICAgICAgICAgICAgICAgICAgICAgICAgICAgICAgIC AgICAgICAgICAgICANCiAgICAgICAgICAgICAgICAg ICAgICAgICAgICAgICAgICAgICAgICAgICAgICAgICAgICAgICAgICAgICAgICAgICAgICAgICAgICAg ICAgICAgICAgICAgICAgICAgICAgICANCiAgICAgICAgICAgICAgICAgICAgICAgICAgICAgICAgICAg ICAgICAgICAgICAgICAgICAgICAgICAgICAgICAgIC AgICAgICAgICAgICAgICAgICAgICAgICAgICAgICAgICANCiAgICAgICAgICAgICAgICAgICAgICAgIC AgICAgICAgICAgICAgICAgICAgICAgICAgICAgICAgICAgICAgICAgICAgICAgICAgICAgICAgICAgIC AgICAgICAgICAgICAgICANCiAgICAgICAgICAgICAg ICAgICAgICAgICAgICAgICAgICAgICAgICAgICAgICAgICAgICAgICAgICAgICAgICAgICAgICAgICAg ICAgICAgICAgICAgICAgICAgICAgICAgICANCiAgICAgICAgICAgICAgICAgICAgICAgICAgICAgICAg ICAgICAgICAgICAgICAgICAgICAgICAgICAgICAgIC AgICAgICAgICAgICAgICAgICAgICAgICAgICAgICAgICAgICANCiAgICAgICAgICAgICAgICAgICAgIC AgICAgICAgICAgICAgICAgICAgICAgICAgICAgICAgICAgICAgICAgICAgICAgICAgICAgICAgICAgIC AgICAgICAgICAgICAgICAgICANCiAgICAgICAgICAg ICAgICAgICAgICAgICAgICAgICAgICAgICAgICAgICAgICAgICAgICAgICAgICAgICAgICAgICAgICAg ICAgICAgICAgICAgICAgICAgICAgICAgICAgICANCiAgICAgICAgICAgICAgICAgICAgICAgICAgICAg ICAgICAgICAgICAgICAgICAgICAgICAgICAgICAgIC AgICAgICAgICAgICAgICAgICAgICAgICAgICAgICAgICAgICAgICANCjw/oBEnY0dvcXHzmfH2O8snLs 2PNx5VGK7eb1XnUAQkKRpojqNkNnySQlOqNKOkZioQNgj8YJcuJF7XtXUiJ0YbI6AaYGccUE7KXJFqSL ZsjUXuSIXvWVVmUqA3CPIfZStdTP7EgKRxPIpfWTQk QZWmOwGaBIJlXG2FBEOtW439fjPpCp1UFl0QVvGyMF9pwm5SHgGvRZBxJybKKov9CCziAV1AhUNzxGWy HmIjHHHDRhQzT3vga2ZnXxUsUSMJLPdyZF5Yi6GcaMRzGYt+Eu7UOS4sk5ZfNDydEpZdUX9rjb0LXCrT MdXuL0PwtCqjRRKhw4GrEXGnDFBaQdfvFWL2KBzbiE RplqIbDKUOUPBweNTvMB1cBd9sFXUeWPM8RkG4NFXZEU9YKNEhAZMquMKgGJOiXPCLEN4YDBhwUTU1Wf ndqhXpsZReMFouQR9ITENbnyFrJyRyHOLKXSr+Zy0JGH9nq3YtSTceSeBePZ0ims4LESlUSaWxT1I9hW WdF0H0FZnzOm8TLJRbQDXgNxFcNDZZVSfpQR7MBZ8u ymD8IV6RnYKjOPTaOZVuiCKsMDy4B00tmUQaKKwaPE7OHAH+Savannah+Hz8KRZRzRXBgFKIfQyHiCHZXXmKj F7XzD0BFv5XgO5QpFX83oFyqpsTpEOiqGZ5IKI3eXCOcIFIIMH0NqSJixH1ozcDvNZFvGIRBJwIlZ67n rJNaTQMvHQF0VEKaNg0XJWTvD3NjzgUyqZmujkZzDD JnOHDZKO0BDUbymhFxiFJanNiuRV13jObuYI7MDp4HCzBoFK1jnw4BgSJfRg7FAXLcMJ3GZMNfXNJxFP PoJPO4OQTxVhAgFHgwCMRlDUEvLMP7UCZpUBMzKS0TDpFkRPIiBGUkHCWzPDYrDVNexw3JIAXrSOYnAd s5HEQwGWSeYSFoMKftJFKxHAKrKDV8EVBiFFGzXP0E VoXpSVWnXKX2TnCjETOzQTRmiu0JYCLgUMZlCqUzGJLyVAOeVHUdMWnaOYXnRRF0NqO6UXIiYZPyWS6A VhVgNIKxBZN1UjDfJXSeIECbef8WOVIqNUNhUWP2JPInGSHzMHSbQGliCDHdIRU8FEtbOIAaDLCyZX0D QfMxPQPjQEI3EcqyQRPqAHTigx0WLSLhNJThHpnjUQ LfFNGxRVQyWCfcNYMwAGF2MAM3YUDeOOLgTS9UTdYjUXGzDSxlGOzlXGQuIVJaet1WZJOiKNXqFGM5Lh LmTUKoDFYxQTnzERUmZRL1Gcl8FCPgRXWhHP1MSnNaXPIxOTy5MpVeWLYmWWFfye6MGMLmSHRhHDIgLi AwZQRpWDEvOHaxUMNoREN6TdPtXUDhMUKrGF4NMaQt IAUmHEg0MEqjLQWlFPEbff4MNNRxYMNxDAw1UzSmYVFuCLXfIGtuMJMcZOGwJKg0EYDkNKNoHT4DHfJd PWPwKAWwFvFqJLUtUZVatb4DTBSmSMMaMKEzVFZiZBIjTVJlUYabDCRdTTImIMI2WVRbRKNsHJ9AKxCq XBPcIAYuWrMuXNGvQZVhgg9CIGJiNSZkCsM9COEpHU SwMDSeKRq0khOveECgRKv2UP2YH3CorjTpKbzUMn6Zp308DKY0QBPlDz7UC3ieSz9mFQBcUUZKVv9NAR r3GuV7NKo2MGMkZkVjYQnkUaPcUHDdWufaMQV4MzG0MHH+DFmiXgX0XbhvHUB5NOFoBVCdDyY9RbX1Y2 A0FFF8AtF4TR4sAXTNMy5+VIdvwUMltSppDATOZbKzDOT2XCgwBOIDCc6S ID Date Data Source [id number] 08/02/2020 09:10:41 AM EDT [facility] Name Value Range Interpretation Code Description Data Sumaya rce(s) Supporting Document(s) Perioperative Nursing Note [facility] XYTWWf8hAlQHAkFw91/MTShhKUFjf9TbNOnvMQb0LTxlBAAhZ0ZbDPV1zN8qNHJ1OHqPKbUoJrIjKIRi lbm [file] idJDDzWvX8CTWcFTesAyT+MU3hBCs+Am1Sc1PturK7ryQbFDbjPIt7Zi4MDJMBL8SAXz== ID Date Data Source [id number] 08/02/2020 09:05:39 AM EDT [facility] Name Value Range Interpretation Code Description Data Sumaya rce(s) Supporting Document(s) Procedures [facility] KTMNFi4tHcPSJnGu30/QRLwlBIMzq7NgNIgxUDu7QVenTOPrR1BnSUJ3jL0kFIK8XOyTOlHvNoXiZSCt lbm [file] AgICAgICAgICAgICAgICAgICAgICAgICAgICAgICAgICAgICAgICAgICAgICAgICAgICAgICAgICAgIC AgICAgICAgICANCiAgICAgICAgICAgICAgICAgICAg ICAgICAgICAgICAgICAgICAgICAgICAgICAgICAgICAgICAgICAgICAgICAgICAgICAgICAgICAgICAg ICAgICAgICAgICAgICAgICAgICANCiAgICAgICAgICAgICAgICAgICAgICAgICAgICAgICAgICAgICAg ICAgICAgICAgICAgICAgICAgICAgICAgICAgICAgIC AgICAgICAgICAgICAgICAgICAgICAgICAgICAgICANCiAgICAgICAgICAgICAgICAgICAgICAgICAgIC AgICAgICAgICAgICAgICAgICAgICAgICAgICAgICAgICAgICAgICAgICAgICAgICAgICAgICAgICAgIC AgICAgICAgICAgICANCiAgICAgICAgICAgICAgICAg ICAgICAgICAgICAgICAgICAgICAgICAgICAgICAgICAgICAgICAgICAgICAgICAgICAgICAgICAgICAg ICAgICAgICAgICAgICAgICAgICAgICANCiAgICAgICAgICAgICAgICAgICAgICAgICAgICAgICAgICAg ICAgICAgICAgICAgICAgICAgICAgICAgICAgICAgIC AgICAgICAgICAgICAgICAgICAgICAgICAgICAgICAgICANCiAgICAgICAgICAgICAgICAgICAgICAgIC AgICAgICAgICAgICAgICAgICAgICAgICAgICAgICAgICAgICAgICAgICAgICAgICAgICAgICAgICAgIC AgICAgICAgICAgICAgICANCiAgICAgICAgICAgICAg ICAgICAgICAgICAgICAgICAgICAgICAgICAgICAgICAgICAgICAgICAgICAgICAgICAgICAgICAgICAg ICAgICAgICAgICAgICAgICAgICAgICAgICANCiAgICAgICAgICAgICAgICAgICAgICAgICAgICAgICAg ICAgICAgICAgICAgICAgICAgICAgICAgICAgICAgIC AgICAgICAgICAgICAgICAgICAgICAgICAgICAgICAgICAgICANCiAgICAgICAgICAgICAgICAgICAgIC AgICAgICAgICAgICAgICAgICAgICAgICAgICAgICAgICAgICAgICAgICAgICAgICAgICAgICAgICAgIC AgICAgICAgICAgICAgICAgICANCjw/wJXvT5tluXLp ryF2P7lhOl8OQk5NAK3vs1GcKYGrHCqhuoXdRcgTEoUcJMUmJimQDun3RMbyDE3OkFFgC2VbL4ThJIud YY3YDPFeWRDpwZUsFQUmLGLyHtK0KRCoFVhrVQ3CcXEbRQigVNLwFQQnMuBwWILgGBAcKCLaOG5NVBDn X067kwYeHv8IGi0QYcYdHB5yad1VVfCoBYDzZqrGBo s1SUmxIX0TiTSizHDqDsFrYYPIZsPeC9gvw9LjNiznEZSHQFneKL8Hp7YvcFEpZLj+Rt9XMR2nj5HkKF kdGvKiDJ9hbh3XGUdHAmDaZ2XtuDvzFRKkp1DjFORaLUEgq0yxyjPnQUL3VKqukjBkuEDYJN7txXYrbk BBbGxlbiwgTUQgYXQgMTAvMTMvMjAyMCAgOTowNSBB SMdXWvHzT6Xnu2GhTwA8SHVtOkUmMUxoWZTpBhL4CP99wAiuUF2EHNWwHHElLW99DEF0OWZzQz2NUi4Q JvVjEA5cbw2LRaylDXIeBixVOfw9QVxdEE1MuCDbT9WptULod1aNGsAtE7UJUZY9OQVuPp0EMNUdCaPx CMZbWNpiZR9bWQRzZWCVnEwhucM0IE3RXY6pbuTmTC 2HVePhPc9dHe0NTfGaB0CxP9ElAVVtCHZUJFzjWJ0XJUeiKA0nRM3Gv0JAlLTurI6pab7XFPWvJNTpQi rozt7UVntjF2S3yPhzPVEsJqClCAMJVAbvBD7GXKSwOGM4HMIdBBZeJGQJOpKkA57uGO1HA6Xbj23rKt U7RAHjBzYdUKqhDT39rXgekgNvuBHaqJegVM8KCl1+ PYcshcPhXhhXGegiJHRZFhDbQyoYDeFrICRwBTYrILWeTuJ5IwQcXy2JTIHuHLCsCKObEcBeOEMyXQYt IBzrJETrAJTpULQsSYDaCVUzIQ1BLpKcPCTbJmW4KpwtOENsRZFmpy2QTHAlXYIpFMB0ZmXfSQPdOMYb DQwyWKBuVRNaOYb6LBIkAUEwIB8OVrGxRLMaVMWfRG ChBMDaIDKzic8RAXBiULLbOUL8VMVrTKNlKVXrXGjtUZXaVOO2KPA9MNQtZLPsUI2MBhGgXHCnEIQ6Ok AkAKJcVPSjqu5RIXNgABVnPXh3SZHfRSItLJEdHFxqOMAyDZM9HOW5LMTwZAIzAY0LCwLyJHNkZYgsWe nkGFUzVEZmog6OTYIgHKFeFrBqDmKzFHOjGOQiDXhc BKBeDBC9XNk2NIGcEGCdEG1INeUwUAPlFCswPrEkISHkZSJbzo5RCXSkQMVwOIU2YhUpTXBsOVGlZBvx CPDmBZQrVAG3AIUlJNFkPL8VIrEoOSEgUfIpNjVnGLPtGPJoot9QKUNjLCAiVXHaZRUiZHBjYCVvPFho WZTrITBrJxiuFYCaLVQlXY2GDaUnQSSbZyS2QNwlVL QiJULfdt8QJKRiZNGyCzw7KIRgQABeFTMmBCylBGEjOUIdSIB0SLJfPPTuVZ6RFiZdZDOhYaFtWiKcLV BjXCRres0LGLBiWWCeTgFaJmJfLYMzUJElMRbqOHPxJCX1TWe3ODGjFBHySP8RNrGvWBOnObFcQTlrDW BaZDHoex3GFZKdXTRwCYZzHDAeUGGnHGPlOHw1zyBh jIMjNXn8HB1AV2FvbcDjMcaZCc6Ey734QYL4YIRbGg1XJ7tlPd7cNIWuNIBQUe1FJCf3HAJcWAczLPJs BTVhGURlKkRwDwucKDD4PEEdRyTqHQE+NOaoBXK8A6Z6YgGbBSQ6C1PvHXM2LDQwOil1IpHiEfL6Yd1w XSANCj4+KFgeyCEzqDjsQXXKRlY8LIEoAProKNENEf9F ID Date Data Source [id number] 08/02/2020 09:03:03 AM EDT [facility] Name Value Range Interpretation Code Description Data Sumaya rce(s) Supporting Document(s) Anesthesia Postprocedure Evaluation [facility] FJIYIp2vGmUSQhHu94/PAQbrETUyi5XwPOhwSGm1TOevDXXlZ9GtSTE4uO9xFSF7IOiTHrMjWnWgLILo lbm [file] AgICAgICAgICAgICAgICAgICAgICAgICAgICAgICAg ICAgICAgICAgICAgICAgICAgICAgICAgICAgICAgICAgICAgICAgICAgICAgICAgICAgICAgDQogICAg ICAgICAgICAgICAgICAgICAgICAgICAgICAgICAgICAgICAgICAgICAgICAgICAgICAgICAgICAgICAg ICAgICAgICAgICAgICAgICAgICAgICAgICAgICAgIC AgICAgDQogICAgICAgICAgICAgICAgICAgICAgICAgICAgICAgICAgICAgICAgICAgICAgICAgICAgIC AgICAgICAgICAgICAgICAgICAgICAgICAgICAgICAgICAgICAgICAgICAgICAgDQogICAgICAgICAgIC AgICAgICAgICAgICAgICAgICAgICAgICAgICAgICAg ICAgICAgICAgICAgICAgICAgICAgICAgICAgICAgICAgICAgICAgICAgICAgICAgICAgICAgICAgDQog ICAgICAgICAgICAgICAgICAgICAgICAgICAgICAgICAgICAgICAgICAgICAgICAgICAgICAgICAgICAg ICAgICAgICAgICAgICAgICAgICAgICAgICAgICAgIC AgICAgICAgDQogICAgICAgICAgICAgICAgICAgICAgICAgICAgICAgICAgICAgICAgICAgICAgICAgIC AgICAgICAgICAgICAgICAgICAgICAgICAgICAgICAgICAgICAgICAgICAgICAgICAgDQogICAgICAgIC AgICAgICAgICAgICAgICAgICAgICAgICAgICAgICAg ICAgICAgICAgICAgICAgICAgICAgICAgICAgICAgICAgICAgICAgICAgICAgICAgICAgICAgICAgICAg DQogICAgICAgICAgICAgICAgICAgICAgICAgICAgICAgICAgICAgICAgICAgICAgICAgICAgICAgICAg ICAgICAgICAgICAgICAgICAgICAgICAgICAgICAgIC AgICAgICAgICAgDQogICAgICAgICAgICAgICAgICAgICAgICAgICAgICAgICAgICAgICAgICAgICAgIC AgICAgICAgICAgICAgICAgICAgICAgICAgICAgICAgICAgICAgICAgICAgICAgICAgICAgDQogICAgIC AgICAgICAgICAgICAgICAgICAgICAgICAgICAgICAg ICAgICAgICAgICAgICAgICAgICAgICAgICAgICAgICAgICAgICAgICAgICAgICAgICAgICAgICAgICAg HQTbZCx9N4saIANvZCAkJL7vIBf1Yo6+HDcRTpZtLZY1neFiwZ8ZLD9vb2EaMWvuLLAla8DpJBp7ZK3N JHVzRTynUU8KAHsgvh0DDZEtUIOphHZDj1sxYpCmUR H3ATUcFsulFQ0HKLYbG6boxrRkMNPdNGXEES7AXpChX1WdzE75OVCEIq7+HPwtobInMmnEYyB8RNOrx4 DePQl1TK7IHOXtTjsdr0FgTuScJNKVTLprMI8GBCA4BKA8DRBwAt9DIPNcG577vyFyUP6QMu2MAyZtLZ 7wws2VFkMrSLMpBqtPBmz9MTkqMO3KuTIoWEmPcvKx vWglg6rqLZUop2Uyzn1wVLS7ygOsDTGfpELqdNuzboOqhZPAEWs5cAKOq6sxFiBHe7ffi98zAANPYYQu bTMoJD4rUa5iFMCmFIJ8JeCeFXPZAN9JAMXlRCIxwWWwNKAeVNHYMJ9PEMmtTCG6StwfetCazSBoHKax VU4SVWOqtiIvUcFwFOFGLQh+Rb8EFA6pv7DuXIyvPr QoGQ5gje5JOHxGGzWxA3S5tSOnI1W8LUofTk4UBNJtLLWlAzZhAMCCSKlsRK0BXK0csoH5JM1MnLWhMR TcPKKeiCWyYAy6K54zjMZlQSwuEU1ZVSV+Savannah+Ac6XVADgDSZsBAUuXxPjJWSQCpWxP1WjM3XKh5QdZ1 CpOJ14wTjfdcYyNMcvYA4GNW7hELEaVDHDFX6RkENm iB2iwfOiLBToFTJHCqFhN98hsNMcCSWiHWR3VMFaRr1YGSWoG9ZiyfMvdIfpcqCiTMCaJGVTIQ5XRFuk liAlyYCnfYjpFB45mGxeDB9LGm3AEfHpZF8dbx6UfMZyNj5QKHAhED7JKBRmMNTuVCUjTNK6SKDoUrLo QSjuWSNiIDVwXQJ1AGXwYMArHA7KRdKeCUKvSgEvQE GbVAZqGTTikp9FJWYdEAYpGuSuWQMsCJGzDGNoCNbcCOIkOBDtRDL8MKLvAVMkUR2VLrPqMSKxBSD2CI ZbZLGsDSSvkr0BVJRkJTLsEelvHVDvZWDdQFQuNQtnQHIxAOUfHhI4KOAuQZKkQD4FNaHoRZStSNS4Zh tyOYOsIDPpys6OUNXbAWGaGPS6TcRxDGKsMLCmZMpt RVVjWYE7VAJaEZVyHVUxZQ0YYhFqNTBcWPMeKJrpCUNtBMSfzf4IXETpFDHaHWI0ISZbDTYyPVAyLYzf XGZqHLH1JGYjYLBxPGJoQW8JSkJtZMYwEHrfAPDnMMNzVHAyac2GFLQhCLXsJQF1IAYdWLBbDQGlEKbq YHQmTRT8QsE1SVNyCIGcMM1PSsUqECSeHLo4YEMrJN ZfYZFofo1UTLNkXEBsPCY4JsZsZAXmZCWfNPwwSNGmPQN7MXw3URSbQIFvEU8MZkAuHTVcWcHsJQEoPX LsEVTjsu4OHYKwJMHoWWm3CNAzNWYfBGXqQJxjXMXaOQMtJTy9RAQbFEYiXR4LOqKwFKOfTmQwAeVgZP GuKAWqhb8RKQIrCJAoHPe9WXJdZYJaXDQeGOtnICVt EYYfAiWnQATtZNSbHX9PSaKrFQXlOxCuBKQfNWNqDZKemd5NSFHvKQYoHkN3OWZdSZKuUIEaYZf1zdUg vPEyKXb0SI2RC8HvtsVyOpaXQt5Lk079QZU5GNQmQy2OZ7owEn0kGAXhFHMYIg3ZFZp8GlY1BJR4Icln RRB8GlO4ZLp9TSG4NKF6EIB9UrN2AKa+XWjfFzJ2Ot aePFQjFNXzECt2HYn6HhIpWyWuIAE0QxD7Br9oHHJQPb6+ZReqqWCojBywDOSHFyAeFbE3OXgnQPXSTa 0K ID Date Data Source [id number] 08/02/2020 09:02:13 AM EDT [facility] Name Value Range Interpretation Code Description Data Sumaya rce(s) Supporting Document(s) Perioperative Nursing Note [facility] LPDXTu1fCuREEiRz23/MJChyHMFie6KzOJynHAn8CLbvTNQbM4YqENM2iV7qJYV9XBzZZnYeNjCxBLYf lbm [file] k+LK3gQKp+Lf7Uo6WdppS9drShGOrmRUz2HG1HTPSGL0XOGf== ID Date Data Source [id number] 08/04/2020 03:23:00 PM EDT [facility] [address] [place] [address] CNY PATHOLOGY CLIA# [id number] Surgical Pathology ReportPATIENT: NI DIAZ CASE NUMBER:[id number] #: [id number] Date Collected:08/02/2020Account #: [id number] Date Received:08/03/2020DOB: 1980 Age: 40 y.o. Date [...] AP/kb Electronically SignedBy:ICD: K29.90 SCarmelo Vargas, MDCPT: [id number] PathologistI ATTEST THAT THE ABOVE DIAGNOSIS IS BASED UPON MY PERSONAL MICROSCOPICEXAMINATION OF THE SLIDES (AND/OR OTHER MATERIAL), AND THAT I HAVE REVIEWED AND APPROVED THIS REPORT.PERFORMED AT: [facility] [address] [place], [place] [address]THE TECHNICAL COMPONENT WAS PERFORMED AT [facility], [address] [place] [address].HEALTHCARE RECRUITER: Eliane ANDREA# [id number].NI DIAZ Page 1 of 1 Name Value Range Interpretation Code Description Data Sumaya rce(s) Supporting Document(s) ID Date Data Source [id number] 08/02/2020 08:34:56 AM EDT [facility] Name Value Range Interpretation Code Description Data Sumaya rce(s) Supporting Document(s) Anesthesia Preprocedure Evaluation [facility] DBIMZi1gDtHMZzGk30/YUImnJBTsc8TtUOekWLn8NWozVXAtJ3MvWHJ9rX4iHZN9XKvZRiEyUgDzPVYu lbm [file] lens polisher hand/VbYra/06CkNW8docd5fjTUOzLGL4GKnUkx7c6gQwnhf/BvRC0+v3eh10ez9rFn1rk7uW/DPMscSF [file] UUDoMF1pNLHLJl1+LClsbMYfjEqfQMAQUgB7LbV8GNkoDUVPMx7V ID Date Data Source [id number] 08/02/2020 07:40:33 AM EDT [facility] Patient: NI DIAZ : 9 PACS [facility] Baoz[facility] CommerceProcedure: ULTRASOUND ABDOMEN COMPLETE Provider: NEMO LAWSONHISTORY:40-year-old female [...] rce(s) Supporting Document(s) ID Date Data Source [id number] 08/02/2020 07:03:54 AM EDT [facility] Name Value Range Interpretation Code Description Data Sumaya rce(s) Supporting Document(s) Care Plan [facility] WCXDDs3aEiUGJpOh66/SPHdhAOGgi0DwXVdaTKy7LHbaEBHhF9CdZVH9fY5xXCS2XUvUZrOvIiOfFQVq [facility] [file] AgICAgICAgICAgICAgICAgICAgICAgICAgICAgICAgICAgICAgICAgICAgICAgICAgICAgICAgICAgIC AgICAgICAgICAgICAgICAgICAgICAgICAgICAgICAgICAgICAgDQogICAgICAgICAgICAgICAgICAgIC AgICAgICAgICAgICAgICAgICAgICAgICAgICAgICAg ICAgICAgICAgICAgICAgICAgICAgICAgICAgICAgICAgICAgICAgICAgICAgICAgDQogICAgICAgICAg ICAgICAgICAgICAgICAgICAgICAgICAgICAgICAgICAgICAgICAgICAgICAgICAgICAgICAgICAgICAg ICAgICAgICAgICAgICAgICAgICAgICAgICAgICAgDQ ogICAgICAgICAgICAgICAgICAgICAgICAgICAgICAgICAgICAgICAgICAgICAgICAgICAgICAgICAgIC AgICAgICAgICAgICAgICAgICAgICAgICAgICAgICAgICAgICAgICAgDQogICAgICAgICAgICAgICAgIC AgICAgICAgICAgICAgICAgICAgICAgICAgICAgICAg ICAgICAgICAgICAgICAgICAgICAgICAgICAgICAgICAgICAgICAgICAgICAgICAgICAgDQogICAgICAg ICAgICAgICAgICAgICAgICAgICAgICAgICAgICAgICAgICAgICAgICAgICAgICAgICAgICAgICAgICAg ICAgICAgICAgICAgICAgICAgICAgICAgICAgICAgIC AgDQogICAgICAgICAgICAgICAgICAgICAgICAgICAgICAgICAgICAgICAgICAgICAgICAgICAgICAgIC AgICAgICAgICAgICAgICAgICAgICAgICAgICAgICAgICAgICAgICAgICAgDQogICAgICAgICAgICAgIC AgICAgICAgICAgICAgICAgICAgICAgICAgICAgICAg ICAgICAgICAgICAgICAgICAgICAgICAgICAgICAgICAgICAgICAgICAgICAgICAgICAgICAgDQogICAg ICAgICAgICAgICAgICAgICAgICAgICAgICAgICAgICAgICAgICAgICAgICAgICAgICAgICAgICAgICAg ICAgICAgICAgICAgICAgICAgICAgICAgICAgICAgIC AgICAgDQogICAgICAgICAgICAgICAgICAgICAgICAgICAgICAgICAgICAgICAgICAgICAgICAgICAgIC AlTBZfPWWzSILrDEMzWFFgGEVfDGGrQOEaUOZoFMRoJCZxRBSgLPXoERIiTQYoYRp5T3lvYBYsUCXiVE 9pNRa7Hh9+LGeYDlHvKMI4dyZskU5FOX6na2LyLUyw LVPuc4RdVBj4NK4ZSKLiBLjfFJ3YHCfatr8SZUKfSQFgoFUEw4wsXeZrFQM6PABiVummLY7MBDWoF6pw kqVyDHRpHXJUWH9DOeDvK2OibK65XXVILd1+VGmddaTsNybQSvMaDECah0AjRCj7KO4QWZLaJtynx2Qw ZmNqRWVBHTejRQ0LOYF3VHViGYLdTq0PLLXsN833kf OpDL2RXw9FRsUdAW4see9XLrJeAWNyKgzYHuj8KHnuFU1WcNKlEZeYVLYpKKUjIL6rAfvqQT2udyGKXV ZvamG8mHQnBWfBBJF1NXOwYvVkXeXtHoTzFGr9INJoZU3nOLcyMR4VEBS2RDftASKwZQDzQ2jSNuKqKQ jsEBAtqBynTV6ICfOkR8EjltLfvCLiMUKyPMUGJd4+ XDieyuGlLhmGLeZbBVUvk1PqGOl3AN5PLVXsEUjlJH5QQVKqdO7uIKotSN1WWnWdVEGzZDWVLhTdZ83j bNBgOGu6P7KoEaIuSKIpXthvJMWkBWyjOvJzDCSlGnUvZGerZQ4+ID4+MPjkDD1HBFegkcSmCQSgOc6R SFFaZFMaFS3wDUJgXHOwU5C8zTfoULBNFxCeD0yejj ixFC8fYURwR907vYfykbShQNVtAJIxXe6CLPHsVXU7QPOxgUMqGKenAWLVZPyeZF7MpKWuLKK3wZ3sOQ suRJBfXTKgP9gSAcEfoLerBP00tQnidjUroEXxVEy+Vl4QDB2yy9DsENz8ylAiRKtfBFQjDEmeLQHzIV QgCDHiSYA7WTM6DJIAUjSzOEXxYUMoNFxxRJPgGKLa sg1DOTTfOGDxNxEzVcAnIYPwVBAeBQvmAHEuMNV5NrdpDODzDYPwGD9IDeAdLXMlFNIxNAkiWUMlRGMd jd7TCMPlRMDoBfQzAqAaXJKyEXPsJGevGNRoFQZhBlE2NEMlPOLbMS7JOdNxUVTaTVFhBtRtPUBsAKRm et1CTALsCRHoEcL8ZEHvLIBbZWRlGBxmAYYvFONmIG CdMOTbTAKnMY6OSkJpNNFtNCH1TTspOVXrRRCdtr8IIKAqUXVxAIbyLsUnKXUxNVCqMDtcAKEzLIR6GT e2DXVqGFDcLR5MQpSeFVQrLZH2FSUmQDJdEQOslc5OKGRsSYPbOfM1MVCtBHWnFQJrOKttVGXyYEG9Cj P4RYCiDGZjNN9SJbWuPICzCVuvGhOhYEXiHIKrye5L IWEdGWFyLbWiYrEuYFNvGCZuLAhnGPGhSKC4GkSjXFLuMGHcMN8CGuQnECLzGGfzMJTyGEMfUYVvdw0M RSSeGEKsNNH7AXNvZWAzSIVyJYgsKMEtKMB3NKEcESIiROXiRX1IIyArJYBrQNb1TQBqLIWpJCGluf2B eFYxbHgerc6HRDeYNm3ZiMqwYBHeXGkgEd6nbHDaLa BiDXVNRt3JhzHvIAIbNDMECJspIFNoRAbeOkVnQOB1RLB3BUDmRNRvBGTaELTiTImaRTfnMhp8KtX5Am LuOoF1HfIfIpQsBsGdWuQjOjDvP2UhYZCxREK3NNd+JR2gTVr+Hn8Mn7VwqqL3wvZlHRq3IXTlWKpnSU VPRg0K ID Date Data Source [id number] 08/02/2020 07:03:19 AM EDT [facility] Name Value Range Interpretation Code Description Data Sumaya rce(s) Supporting Document(s) Nursing Note [facility] LRIIUz6nTqWFHoJm32/DVYieHXCvk7EnIVoeABn3EBczTNVhR5TkZOY7bB5nLZO7MDtVVnPgUwDkKJSa lbm [file] HfLeAWX4N0PfKMBrFyE1WcGtIa0qFROWXg8+GZetqYCwqEtaSUAFAhp0ADQOYdVlJE6KKWf= ID Date Data Source [id number] 08/05/2020 08:00:00 PM EDT [facility] Name Value Range Interpretation Code Description Data Sumaya rce(s) Supporting Document(s) Pancreatic Elastase, F 367 mcg/g >200 (Normal) Normal (a pplies to non-numeric results) [facility] Test Performed by:[facility] [address] [id number] Director: Julio Gracia M.D. Ph.D.; CLIA# [id number] above 1 analytes were performed by [facility] ([id number]) ID Date Data Source [id number] 08/02/2020 05:52:00 PM EDT [facility] Name Value Range Interpretation Code Description Data Sumaya rce(s) Supporting Document(s) Stool WBC No WBC's Seen [facility] The above 1 analytes were performed by [facility] [id number], ,[place] [address] ID Date Data Source [id number] 08/02/2020 10:52:00 AM EDT [facility] Name Value Range Interpretation Code Description Data Sumaya rce(s) Supporting Document(s) Campylobacter Not Detected Not Detected Normal (applies to non-nume zaina results) [facility] Norovirus Not Detected Not Detected Normal (applies to non-numeric r esults) [facility] Rotavirus Not Detected Not Detected Normal (applies to non-numeric r esults) [facility] Salmonella Not Detected Not Detected Normal (applies to non-numeric r esults) [facility] Shiga Toxin 1 Not Detected Not Detected Normal (applies to non-nume zaina results) [facility] Shiga Toxin 2 Not Detected Not Detected Normal (applies to non-nume zaina results) [facility] Shigella Not Detected Not Detected Normal (applies to non-numeric r esults) [facility] Vibrio Not Detected Not Detected Normal (applies to non-numeric r esults) [facility] Y. enterocolitica Not Detected Not Detected Normal (applie s to non-numeric results) [facility] Enteric Pathogen Panel:Testing performed by reverse vtc technician, PCR and array hybridization.A negative test result does not rule out the presence of diseaseThe above 9 analytes were performed by [address] [place],[facility]# [id number],[place] [address] ID Date Data Source [id number] 08/02/2020 06:26:00 AM EDT [facility] Name Value Range Interpretation Code Description Data Sumaya rce(s) Supporting Document(s) AST 16 IU/L 15-37 Normal (applies to non-numeric resul ts) [facility] Sulfasalazine and sulfapyridine have the potential to falsely depressAspartate Aminotransferase results. Baseline values before medication administration are recommended. ALT 36 IU/L 13-56 Normal (applies to non-numeric resul ts) [facility] Sulfasalazine and sulfapyridine have the potential to falsely depressAlanine Aminotransferase results. Baseline values before medication administration are recommended. Alkaline Phosphatase 135 mIU/ml 50-136 Normal (applies to n on-numeric results) [facility] Total Bilirubin 0.40 mg/dl 0.20-1.00 Normal (applies to non-numeric results) [facility] Blood Urea Nitrogen 14 mg/dl 7-18 Normal (applies to non-nume zaina results) [facility] Creatinine 0.56 mg/dl 0.51-0.95 Normal (applies to non-numeric resul ts) [facility] N-Acetylcysteine (NAC) and Metamizole lemus ve the potential to falselydepress Creatinine results. Baseline values before medication adminstration are recommended. Patients undergoing treatment with phenindione will have falselydepressed results. Patients on phenindione therapy should be tested with an alternativeCREA method.Toxic levels of acetaminophen may lead to falsely depressed results forpatient samples. Glomerular Filtration Rate >90.00 mL/min/1.73m2 [facility] GFR Reference Ranges:Normal Function or Mild [...] of Health and the National KidneyFoundation. The [place] method used in calculating this result is traceable to IDMS standards. Glucose 213 mg/dl 70-110 Above high normal [facility] Sulfasalazine has the potential to false ly depress Glucose results. Sulfapyridine has the potential to falsely elevate Glucose results. Baseline values before medication administration are recommended. Calcium 8.6 mg/dl 8.5-10.1 Normal (applies to non-numeric resul ts) [facility] Total Protein 7.1 g/dl 6.4-8.2 Normal (applies to non-numeric re sults) [facility] Albumin 3.8 g/dl 3.4-5.0 Normal (applies to non-numeric resul ts) [facility] Sodium 136 mEq/L 136-145 Normal (applies to non-numeric resul ts) [facility] Potassium 3.9 mEq/L 3.5-5.1 Normal (applies to non-numeric resul ts) [facility] Chloride 103.0 mEq/L 98.0-107.0 Normal (applies to non-numeric resu lts) [facility] Anion Gap 10.9 [facility] Carbon Dioxide 26.0 mMol/L 21.0-32.0 Normal (applies to non-numeric results) [facility] The above 16 analytes were performed by [facility] [id number], ,[place] [address] ID Date Data Source [id number] 08/02/2020 06:13:00 AM EDT [facility] Name Value Range Interpretation Code Description Data Sumaya rce(s) Supporting Document(s) PT, No Coag Tx/Coag Tx Unk 13.1 Seconds 10.2-12.9 Above high normal [facility] Attention: Effeciive 03/16/2020 The nor mal [...] 0.9-1.1 Nor mal (applies to non-numeric results) [facility] Suggested therapeutic INR ranges for ora l anticoagulant therapy: Indication:INRPrevention and treatment of DVT and PE2.0 - 3.0Prevention of systemic embolism with atrial fib., acute NH and 2.0 -3.0 tissue prosthetic heart valves.Prevention of systemic embolism in patients with mechanical heart2.5 -3.5 valves.NOTE: The INR is only valid for patients on stable oral anticoagulanttherapy. The above 2 analytes were performed by [facility] [id number], ,[place] [address] ID Date Data Source [id number] 08/02/2020 06:10:00 AM EDT [facility] Name Value Range Interpretation Code Description Data Sumaya rce(s) Supporting Document(s) WBC 5.06 x1000/ul 4.80-10.00 Normal (applies to non-numeric re sults) [facility] RBC 4.27 x1Mil/ul 4.20-5.40 Normal (applies to non-numeric re sults) [facility] Hemoglobin 10.6 g/dl 12.0-16.0 Below low normal [facility] Hematocrit 34.7 % 37.0-47.0 Below low normal [facility] MCV 81.3 fL 81.0-99.0 Normal (applies to non-numeric resul ts) [facility] MCH 24.8 pg 27.0-31.0 Below low normal [facility] MCHC 30.5 g/dl 32.2-37.0 Below low normal [facility] RDW 17.0 % 11.5-14.5 Above high normal [facility] Platelet Count 482 x1000/ul 130-400 Above high normal [facility] MPV 9.4 fL 9.4-12.4 Normal (applies to non-numeric resul ts) [facility] Neutrophils 60.0 % 40.0-74.0 Normal (applies to non-numeric resu lts) [facility] Lymphocytes 25.3 % 19.0-48.0 Normal (applies to non-numeric resu lts) [facility] Monocytes 10.5 % 3.4-9.0 Above high normal [facility] Eosinophils 2.6 % 0.0-7.0 Normal (applies to non-numeric resu lts) [facility] Basophils 1.2 % 0.0-2.0 Normal (applies to non-numeric resul ts) [facility] Immature Granulocytes 0.4 % 0.0-0.5 Normal (applies to non-nu meric results) [facility] Nucleated RBCs 0.00 % 0.00-0.20 Normal (applies to non-numeric r esults) [facility] Abs. Neutrophils 3.04 x1000/ul 1.92-8.31 Normal (applies to non-numeric results) [facility] Abs. Lymphocyte 1.28 x1000/ul 1.20-3.70 Normal (applies to non-n umeric results) [facility] Abs. Monocytes 0.53 x1000/ul 0.14-0.97 Normal (applies to non-nu meric results) [facility] Abs. Eosinophils 0.13 x1000/ul 0.00-0.76 Normal (applie s to non-numeric results) [facility] Abs. Basophils 0.06 x1000/ul 0.00-0.22 Normal (applies to non-n umeric results) [facility] Abs. Immature Gran. 0.02 x1000/ul 0.00-0.02 Normal (appl ies to non-numeric results) [facility] Abs. Nucleated RBCs 0.00 x1000/ul 0.00-0.02 Normal (appl ies to non-numeric results) [facility] The above 24 analytes were performed by [facility] [id number], ,[place] [address] ID Date Data Source [id number] 08/01/2020 05:22:27 PM EDT [facility] Name Value Range Interpretation Code Description Data Sumaya rce(s) Supporting Document(s) Nursing Note [facility] SAFNSz4yObDTTxSk37/AKVuaQPNiq1ZpDFtpVBc5MSmyJLUuR1DtRFB6eX6gCUD5YIaNVkIvAdIhUGHm [facility] [file] ICAgICAgICAgICAgICAgICAgICAgICAgICAgICAgIC AgICAgICAgICAgICAgICAgICAgICAgICAgICAgICAgICAgICAgICAgICAgICAgICAgICAgDQogICAgIC AgICAgICAgICAgICAgICAgICAgICAgICAgICAgICAgICAgICAgICAgICAgICAgICAgICAgICAgICAgIC AgICAgICAgICAgICAgICAgICAgICAgICAgICAgICAg ICAgDQogICAgICAgICAgICAgICAgICAgICAgICAgICAgICAgICAgICAgICAgICAgICAgICAgICAgICAg ICAgICAgICAgICAgICAgICAgICAgICAgICAgICAgICAgICAgICAgICAgICAgDQogICAgICAgICAgICAg ICAgICAgICAgICAgICAgICAgICAgICAgICAgICAgIC AgICAgICAgICAgICAgICAgICAgICAgICAgICAgICAgICAgICAgICAgICAgICAgICAgICAgICAgDQogIC AgICAgICAgICAgICAgICAgICAgICAgICAgICAgICAgICAgICAgICAgICAgICAgICAgICAgICAgICAgIC AgICAgICAgICAgICAgICAgICAgICAgICAgICAgICAg ICAgICAgDQogICAgICAgICAgICAgICAgICAgICAgICAgICAgICAgICAgICAgICAgICAgICAgICAgICAg ICAgICAgICAgICAgICAgICAgICAgICAgICAgICAgICAgICAgICAgICAgICAgICAgDQogICAgICAgICAg ICAgICAgICAgICAgICAgICAgICAgICAgICAgICAgIC AgICAgICAgICAgICAgICAgICAgICAgICAgICAgICAgICAgICAgICAgICAgICAgICAgICAgICAgICAgDQ ogICAgICAgICAgICAgICAgICAgICAgICAgICAgICAgICAgICAgICAgICAgICAgICAgICAgICAgICAgIC AgICAgICAgICAgICAgICAgICAgICAgICAgICAgICAg ICAgICAgICAgDQogICAgICAgICAgICAgICAgICAgICAgICAgICAgICAgICAgICAgICAgICAgICAgICAg ICAgICAgICAgICAgICAgICAgICAgICAgICAgICAgICAgICAgICAgICAgICAgICAgICAgDQogICAgICAg ICAgICAgICAgICAgICAgICAgICAgICAgICAgICAgIC AgICAgICAgICAgICAgICAgICAgICAgICAgICAgICAgICAgICAgICAgICAgICAgICAgICAgICAgICAgIC QeFLp5B8ruUGYlRRSxAX2tRWq4Eo6+ZAfCJrQfNJA2eoMbqS2SNQ1ez0KsVIssXYIym0PeYNg9LG1TBU CqYMqjWG1VWFsref9SDFAnHKKvvEDWa1wsKoJaAXZ0 GEFsGnltEE9QMCSuP4saszVnOYFhIRNFIQ2OAtHlA9YzbR64VWXWMq4+PYhmqjFhTuhOPfAjMXWqr6Np IQj9OR9RPPLkRzimg8LwIpEwCFYDQOcfBL6BZXW1CHDuDTTjXa4IHSPkD262lyDxJQ4OUj8RMxAeTY5g ls0HRpCgKMNtRepJSlq9BErgZU1UeKRnICgSoTLoyF 2lZZ3zxMVvYoxkGAfzG6niJQBfpOkfs298d0rmMONYKcOstPCuWL7qCz9gMZShDKI3FsR1NMLYUT2FSR XrWIEhqBOqNAIgENSSHL8SQTxkQCS4MxhmzpIggXTrMUjhAV4AJGGdpsLjDkYiNNQKUMh+Dq7UKG9lr9 CuNGopARElHC5kza4JCFwOXuUpO5E0vXUqP9V2UYbd Hh0ZLGNiSSGuDyPePAAAHIuhPX0DSU3vejI8CN1FsICoLSBhBBMieBYoXXm9P54qgHSsXRnyNQ5PGWC+ Savannah+Rv7WNCNqXEFdBICpTeIiEOVEZqPmR5EzU3NKx9HwA6QfUS47cRhwpeVnKYiwET2VVM5fPMXxKLBM BQ7OuRLsdX0gulDsQaRlULNKYfNnV71kiXNgFZMoYT VtJOSwGh8DIVNqQ1LkenVneYnzyzKeGJJeIGTFLT1ZNVhfphOdmBTifXjyRG44qBigRE8UTw1BVlDyVO 4oyt2WeCHyUb5CNJIeUJ4RNXKtGTGmFJEbUXA7NUSqUaJyUWarCAThIADqUHR0VFYqQFCvXI2MHvVuAM ThVqByRfYeUHHjIYRghd8USJZhTLIhUBe9PFSeTCWo UIUhLAdaBVPpGJVoVMT2PYEuIOGkFU7GHlDvCURkODN9AklcGIGxDFNyjz7WXVMaIKHlRwq9AuZuMWMs QKGvBRqtCTIyWDJgCkHmREUvNEBnUL3KJqDeTIKlLGU6YbLrISAfELKjsf0NQTSqPISsFPHcFyLoCKKm TCLkAYsyIYAhKBL7GMl0SUJpZZWrGX2NFrXzUBKyKB EzTzCcYRFmXVZzah0HKWLgWVMeDOH8GUEaJNRvBIWzVYqcDLJmEPU7RHPmHNQtKOBpSP7DAyAqLWXqTE ycBKkvUHTsUARnyq1BVXBmCRKwKWXkHOWdFZEyGWWfNHjxKBRcKGC2OYX1QEUaCEFeEJ0OWzRlWJWkBR q0OAOpCIEaAJHpfe2LUYZbXWJkMPD7UmQnBNLtMHKk XGekMVZgRYC0QUEuNOPgKYSoVK9SJyIjVJTcEfQjLOCdUZIsTGNrvr5WMRAjKFSyVVUsVUYbESJvHRXy PAabEHJuQDMoDVT8YBDhCEWkEW8TFsGfUZEhUvO4YsxcLRAaLJSlmr1FXWLfSTCfXbM4QTWlYEGsYAOy MUe0whQvjTIjLPz1CG8LN4LtoxGmBwPIAi6Vy638ES N5QKWnMc0XR7kwDg4aCCChJYMMRh9TVEo8HbcaAaZmNMZ1VLJ0ZCA5LWO7DOl4JTRaCbQwUKNdHSW+ID y5QySjRXPnPLa4YeRqImO2ECP4ZRigQbJaRJK7NdK9Bf6aIZQYMc5+LYlvcESufIyeIARDHqHmPtJ7GI vuGPZTJm3K ID Date Data Source [id number] 08/01/2020 05:19:31 PM EDT [facility] Name Value Range Interpretation Code Description Data Sumaya rce(s) Supporting Document(s) Care Plan [facility] RADYMz9sTqNAReJy98/DPDdaLJOir4MkNPxuJAw1LCapZMUdZ2IzWSO0uC6xFBK4SRzKQyOpVlHhLKNw lbm [file] ICAgICAgICAgICAgICAgICAgICAgICAgICAgICAgIC AgICAgICAgICAgICAgICAgICAgICAgDQogICAgICAgICAgICAgICAgICAgICAgICAgICAgICAgICAgIC AgICAgICAgICAgICAgICAgICAgICAgICAgICAgICAgICAgICAgICAgICAgICAgICAgICAgICAgICAgIC AgICAgDQogICAgICAgICAgICAgICAgICAgICAgICAg ICAgICAgICAgICAgICAgICAgICAgICAgICAgICAgICAgICAgICAgICAgICAgICAgICAgICAgICAgICAg ICAgICAgICAgICAgICAgDQogICAgICAgICAgICAgICAgICAgICAgICAgICAgICAgICAgICAgICAgICAg ICAgICAgICAgICAgICAgICAgICAgICAgICAgICAgIC AgICAgICAgICAgICAgICAgICAgICAgICAgDQogICAgICAgICAgICAgICAgICAgICAgICAgICAgICAgIC AgICAgICAgICAgICAgICAgICAgICAgICAgICAgICAgICAgICAgICAgICAgICAgICAgICAgICAgICAgIC AgICAgICAgDQogICAgICAgICAgICAgICAgICAgICAg ICAgICAgICAgICAgICAgICAgICAgICAgICAgICAgICAgICAgICAgICAgICAgICAgICAgICAgICAgICAg ICAgICAgICAgICAgICAgICAgDQogICAgICAgICAgICAgICAgICAgICAgICAgICAgICAgICAgICAgICAg ICAgICAgICAgICAgICAgICAgICAgICAgICAgICAgIC AgICAgICAgICAgICAgICAgICAgICAgICAgICAgDQogICAgICAgICAgICAgICAgICAgICAgICAgICAgIC AgICAgICAgICAgICAgICAgICAgICAgICAgICAgICAgICAgICAgICAgICAgICAgICAgICAgICAgICAgIC AgICAgICAgICAgDQogICAgICAgICAgICAgICAgICAg ICAgICAgICAgICAgICAgICAgICAgICAgICAgICAgICAgICAgICAgICAgICAgICAgICAgICAgICAgICAg ICAgICAgICAgICAgICAgICAgICAgDQogICAgICAgICAgICAgICAgICAgICAgICAgICAgICAgICAgICAg ICAgICAgICAgICAgICAgICAgICAgICAgICAgICAgIC IaKCVcVNFwIVLbNUOyPXEeKGRzCQLzBEHbEUIlECWhHPe1M4qqECGmAOVvRF7vZIq7Ky6+DQoNCmVuZH L4llUliI0ASF2ap7JeNXbsXGTax4EsWRb5LE2AMPOzTEqwJP3IAKjzkm5BJRSlXXHklBKKt7slZrIsWB B2SULiIkkdYK3SUNUlD7obzqBcXFSyVDGLCC9RLsBp H6YnfJ55UDJABo8+EFkxpyTqZccQPfI5IRVkd8NrPXc2XC6UCPZhSfscv4KcBxHvZCIUGTlzKA1ORGT0 OFR7ZKXnUx3QPLBdO951lnVeAC1DLm6MSjPyRM4ifs7IFqMmHKXdRcsORrq5NZibJA7TiVCsZByPTRNh KBWdNX2kBludWCdqB7cxPHIawVerp242m3ykFOUZNy TujKIoQJ6xCp1fEQUkARB0DtM4HQSVRY4WKGKqDVSiiENwMTWoOYKYAF9GYZaaIUU0RgomolFbaCKyQC plEQ1CHRSofeBoIaGuJQIPBVi+Oi5KDF1pk1PySCiuHzXaSQ2mnk8HJEfUAdJwY8H3uXCgY3Q2FRzzFk 5VBVSpMPEvQlHwYLXNUIywLU0PLC2mecZ7KH2HeTZd ADJlTGMyaROrTWh1I96cfGKaMQurQQ2RIKR+Savannah+Rv3EDUWmIUFsHJKqGmQrFDEWSmRwE9OoI7TXx8Wx I4SzPO26kBziwmLjXYeoWJ3CFG9nXAHmPKOXGK6GxHGceA6oxwYoDATnBRHGRlLmE60hwFTaRBIsCEY4 SXMrFm4YQQSiN4ZbuwLwdCqmfmEwJDKmZSUMMG4MQH rmtuFszRNrwMsaRS81nAnwGG4MQl5VXtDbOR0ymr2XnKUbRk0IGNIoLH0LJLUvUMTvAIZsGLC9ORAaHv QvDBhyGXBrTAOkNNW5IRMoMAOoEE3DRcWvZNVhTwU4YAQdBNHuRRPrna9WWBYlYKMjMbS5LTBjNHNkMG WaBTtsUGKyOXErEJX6ZCGzSDDzAJ7HRjLuOLOrZST0 DGGrDJAgMIZgse6BBLMeBKRaShdvSJItDNYnPXWkMCmvRRKrJJLtRWvzCDUqTMPmLB1XGoPbSTVuBAQw IyRhYJMaPNJsin8FKHZkVPEuHQA3LAHvHJKcRJThFFaqGGRvLFA1ZbH0NIGzKHIlDX2EKtOhCXOnHEN2 PKIeYUIjOBIkge0WXGBcQHUxWYL2KsViFOLwAWKzHK pnFQClZKB5RJK3IPXgTJBcFJ2SLfWfIIVyMNaeZtQjABLgQDKixs5PNDPmCNAiSTD4VPDsDKVkAXVdZL pjNXPsCPT2LyMvLRLhQXTxWY3LDqMcPXRuDCs2SJmrJXGoGYMvvt1YIXHjTVMjSMj3ALMuWVJnTDYmSK frDROsTKD5BOd2PCLlDETgLV4WWoZiRFWdXaTnNKSn LILhDHGetc7JGWGeRQLkNLLlOGVqSRPhZMJuFWqcOBSgDZSsFsDdGLBzKMJqXB9YErImNUTxHjH9PKYn QFWjHMJvyb7CWCYlXBNnGMcaFCDpHJUjQUQaPQxmYANqBXYmPwGcDFUbBHOoZU4OYrBiHVTjYlS6PkGs UAZeOVUslz9JOLYzJAWhTmG2CrNnTSChVAIlAKy9ef UzoDPrRGm8YB9MN8OrxgUzEbaXAo0Xw907USW6IJQrGe6CA3wyLa5wJEQhZLAVYb9QJYp8NIA9AUW0J3 ItMgymHJDgZFNkMUAsYRe7WpJ7NrJwOJU+EIn7OQeeRVmcDtOyGWRfRZE8AfGbXoD8PXZrHJq0YBYyIn 9qRIAWTi8+QMsdqJPceNvaWXBGNqCaMFR0ZTkwWAYZBu1G ID Date Data Source [id number] 08/01/2020 03:11:28 PM EDT [facility] Name Value Range Interpretation Code Description Data Sumaya rce(s) Supporting Document(s) Consults [facility] ZHPJNv7zHaDQNvFi18/JESntEEXey1DgQKuvZVy2KQhoUIDgF7NvAZO8nB7vRSD9MXzHEmYxSlOrSGAu lbm [file] LVC1KYCt== ID Date Data Source [id number] 08/01/2020 03:29:00 PM EDT [facility] Name Value Range Interpretation Code Description Data Sumaya rce(s) Supporting Document(s) SARS-CoV-2, PCR Negative Negative Normal (applies to non-numeric results) [facility] The [place] ([place] FDA has made th is test available under anemergency access mechanism called an Emergency Use Authorization (EUA).The EUA is supported by the [employer]il [employer] Repairer of Health and HumanService's(HHS's) declaration that circumstances exist to justify the emergencyuse of in vitro diagnostics (IVDs) for the detection and/or diagnosis ofthe virus that causes COVID-19. First Test Unknown [facility] Employed in healthcare No [facility] Symptomatic as defined by CDC No [facility] Hospitalized Yes [facility] Resident in a congregate care setting No [facility] No [facility] Intensive Care No [facility] The above 8 analytes were performed by [facility] [id number], ,[place] [address] ID Date Data Source [id number] 08/01/2020 12:09:53 PM EDT [facility] Name Value Range Interpretation Code Description Data Sumaya rce(s) Supporting Document(s) Progress Notes [facility] LNCSJo8iAjVTIdMc07/FCCdkYGOfb5KeCRvrMFd1VEpzQTLgO8KnSVL8vX9lGZR5XLxTTtIqGaWrCBYg lbm [file] CwHweiO2BcYNGqOMO5OuIlVK7NXp7VHuV9LUU1aOKgCu6XJGOpFNNBNfMyMG7RIHa= ID Date Data Source [id number] 08/01/2020 11:00:40 AM EDT [facility] Name Value Range Interpretation Code Description Data Sumaya rce(s) Supporting Document(s) Progress Notes [facility] NTKBEf3tTkKVXzNe67/LTQryXKCdx1OwERckGSj3XCgfMYYpE4YoTPW3nC1pYWJ1WScGJuKwFfOvUAWv lbm [file] TsNV6TEs3RZbQ0UZS5eSXwHf6GFdD3VZKXYcOyWD6BBMz= ID Date Data Source [id number] 08/01/2020 11:35:00 AM EDT [facility] Name Value Range Interpretation Code Description Data Sumaya rce(s) Supporting Document(s) Amylase 56 IU/L 25-115 Normal (applies to non-numeric resul ts) [facility] The above 1 analytes were performed by [facility] [id number] [place] [address] [address], ,[place] [address] ID Date Data Source [id number] 08/01/2020 11:35:00 AM EDT [facility] Name Value Range Interpretation Code Description Data Sumaya rce(s) Supporting Document(s) Lipase 136 IU/L 73-393 Normal (applies to non-numeric resul ts) [facility] The above 1 analytes were performed by [facility] [place] [id number] [address], ,[place] [address] ID Date Data Source [id number] 08/01/2020 08:29:00 AM EDT [facility] Name Value Range Interpretation Code Description Data Sumaya rce(s) Supporting Document(s) Prolactin 5.1 ng/ml [facility] Prolactin Expected Ranges:Female:Non-pre gnant2.8 - 29.2ng/mL9.7 - 208.5ng/mLPost-menopausal1.8 - 20.3ng/mLThe above [address] [facility] [place] [id number] [address], ,[place] [address] ID Date Data Source [id number] 08/01/2020 07:47:08 AM EDT [facility] Name Value Range Interpretation Code Description Data Sumaya rce(s) Supporting Document(s) Nursing Note [facility] SIAZIh8xAlLYVdCz94/OUPniYNAum4BmYSnaUVa4EEdlFKXeI3EsUMG6iY0vOOZ7AUbEUoFtLwMzDGAs [facility] [file] q7PFP1FIZ5OECkYcC9YoPrNG0IRt7XRzG0MGZ0wRApGj7BZwSgIpUXBsVvCU9OXWc= ID Date Data Source [id number] 08/01/2020 04:34:36 AM EDT [facility] Name Value Range Interpretation Code Description Data Sumaya rce(s) Supporting Document(s) Nursing Note [facility] CJKWGu0mYoONNhHo00/DGXgyMEXyu2IjMSzhQEx9TEqzUDSqE2PhOWP8zB3cXHR1LHhFVfSbUySaOQHq lbm [file] AwMzUwNyAwMDAwMCBuDQowMDAwMDAzNjkyIDAwMDAw PQ6DUiVbCTVmLUA6CLVsITRmFZBsnl8KHUMgXUXmPBl7MRFuLNPhWDFlFUsuIQPcBLF5IITkQCAaUAUz DT1JKoNtTMUiQQadXfmvWXFtZLVvih6DSXLkVTAuNuT4YTKcVBXpISCqYNrpDJKdBBF3UHG5VWGaZMNo PC8SYfUdSXPgMOqdPIMqEURiNBGzcj7KOTQpEHFeBG S8AGOdCSJkGUTiLEvpPGTbPFH8VwWoSVFoTJAvIJ8HUtAqNRKpWDm7DFclSQWrHVIkoi6JBWVmFQRiXW R3TOFiPCPtDLWgJGwwDKYdJIIgPUR6JWYqWRXgNY9NOsTkTZJfJqC8FIHtZFCiHWSmaj2ZEZTyWOLtAW JnOQExQOGnRYGrCIqgKXPzHTNySyF9JTUiTJBeYQ9Z KcSbDUmcYSVLCcr9ABjvY6m9BSOaCV1KE4Fjc4CmDmVvQCZHZOyaYP9uqrElNSRtDq5AV6dKQxneBtgu WZY9JcZ3LTq5HtA0EstjYtbvLHGiEBFcYJyjEM1nZWC7PHK0Beq8IGc1KGadWStnDDXpM3U2VVZ0BEE5 H8GaAhPiDO1PJd7AOjN3BIT5pFUyZt9TOmQ6PMIUJkOyNV2SUGx= ID Date Data Source [id number] 08/01/2020 01:56:53 AM EDT [facility] Name Value Range Interpretation Code Description Data Sumaya rce(s) Supporting Document(s) Care Plan [facility] YKPSMu4lQcVYVzPt90/ZQNupPOBoc0CsIMbpKCb2ERbsZCBsP3WaSYC5wJ6iODF8TUkSWtRtNxVpDHAc lbm [file] MjMgMCBvYmoNCltdDQplbmRvYmoNCjIgMCBvYmoNCj i4UNwkJO2Lhq1mV3N1TWngERPLV4DomEZpSR6pR0ELW0gtAXmzRc2SFvAsE6DtjyVkPAtbJ8KgHFozSC GALFeeXJNpN2IsOTLoNMAiCx1VCIRsIN6TOpRvUzHtUYTYSaPlEWZvQjCoLRjwXQRLBOwcGZMyV7B9BT IyIDAgUj4+CWsnKR4XC6MwTIE7FEq2AU6+MQhjNV1V sWUAI6WagELqBWwiU1QRFB2DFID5NR9BpOLaRC4XgJRZN8DqoNUnDd5dUNCfq6TtVa0yK1PBFYKIQDJa WQtwFRtvVNDsJNs2A2Q0MPVzX6FCM405kHTboUl5Pj5qK6PGLLhZBnIyPFcqEUalIZWqPVr0R3K8FHJc K0UDX7UiKqYehvCqE2R+YfFhGRRTQZ1MFWQNIGd3V4 A1vNBbN5M6nQcFvVC7AS0NXX3AtSEkrAHxo80+PvCLOzEqW6MVM8DIQF1ZWUj8S2H6pULeR2X4uRzAhC A9QM0GEB4VfUbkbGNcEw4wGTuvHSL+Gn6XXc9OIqDqOT4svr1VPnOaGPMiNkkBNrm1T6hzgnq9aNZyXc I1C5Y9IuO2cYQjTY5TD4D6pKIgNAT8ALLdvIN+Pg0K x5PgLHQfLBq6K6psGBGnQGKsAfHpeQ23W++8ejocaIX1I6t5JYPVkRHvaMbFgvYmB4zUVJF2n8M0PUk/ Ao8GMZZ0oUg6aEMkOJLbIFk6oB0kaOu8WfThIF57MFSfLBbrtN8cBbi7F4Mhz3RhSl5zHo5edYFtPr8H XoEgQAF8dbBkVeKOLpA8iBupstzuXYY0W6f5rDP6Hm 21o5jdkhErr4IlHaQ2LNdzNHPxApCoxqVmXPK0fvItjB6ygvRpQu2SVURzYQpyjfWbXlNSBw6KJbCnCT 81HvewgO8hsMI+DQogICAgICAgICAgICAgICAgICAgICAgICAgICAgICAgICAgICAgICAgICAgICAgIC AgICAgICAgICAgICAgICAgICAgICAgICAgICAgICAg ICAgICAgICAgICAgICAgICAgICAgDQogICAgICAgICAgICAgICAgICAgICAgICAgICAgICAgICAgICAg ICAgICAgICAgICAgICAgICAgICAgICAgICAgICAgICAgICAgICAgICAgICAgICAgICAgICAgICAgICAg ICAgDQogICAgICAgICAgICAgICAgICAgICAgICAgIC AgICAgICAgICAgICAgICAgICAgICAgICAgICAgICAgICAgICAgICAgICAgICAgICAgICAgICAgICAgIC AgICAgICAgICAgICAgDQogICAgICAgICAgICAgICAgICAgICAgICAgICAgICAgICAgICAgICAgICAgIC AgICAgICAgICAgICAgICAgICAgICAgICAgICAgICAg ICAgICAgICAgICAgICAgICAgICAgICAgDQogICAgICAgICAgICAgICAgICAgICAgICAgICAgICAgICAg ICAgICAgICAgICAgICAgICAgICAgICAgICAgICAgICAgICAgICAgICAgICAgICAgICAgICAgICAgICAg ICAgICAgDQogICAgICAgICAgICAgICAgICAgICAgIC AgICAgICAgICAgICAgICAgICAgICAgICAgICAgICAgICAgICAgICAgICAgICAgICAgICAgICAgICAgIC AgICAgICAgICAgICAgICAgDQogICAgICAgICAgICAgICAgICAgICAgICAgICAgICAgICAgICAgICAgIC AgICAgICAgICAgICAgICAgICAgICAgICAgICAgICAg ICAgICAgICAgICAgICAgICAgICAgICAgICAgDQogICAgICAgICAgICAgICAgICAgICAgICAgICAgICAg ICAgICAgICAgICAgICAgICAgICAgICAgICAgICAgICAgICAgICAgICAgICAgICAgICAgICAgICAgICAg ICAgICAgICAgDQogICAgICAgICAgICAgICAgICAgIC AgICAgICAgICAgICAgICAgICAgICAgICAgICAgICAgICAgICAgICAgICAgICAgICAgICAgICAgICAgIC AgICAgICAgICAgICAgICAgICAgDQogICAgICAgICAgICAgICAgICAgICAgICAgICAgICAgICAgICAgIC AgICAgICAgICAgICAgICAgICAgICAgICAgICAgICAg XITnXGOsMABbXHIpDFSkOEMoNQEcVLKoETLyZUApEGn6L5uaJLXiMLOyAW3sWYc5Kd2+DQoNCmVuZHN0 gwZtfH6LER8kj3GfGKhvFFXem7AfYSb4WP2UNPYnAOoaWY8CBCyhsq5MIPKeILHlyIDSq8lhHbVxAYV5 QFIdNleuWH1CUDBsB6jxjtFxCCQzNMJVWW3ICpCaZ8 NzdS49CGALRz5+PZvtjkLwWvnPViJ5YWWfq8XtXRn6UG9DWREuFcwgu5VuPmJjAXUCBWanCN0BMLT8MX I5ZEXgKc8VYEYhU137ggLjRM5CYz3SNyPfPG2zsn8TAfGyONAgPhtZCyf7HSywMO4PlVKxIKgXRBIeRS BlAZ1wBzcmI8BcI9L8SSirscBeCZ8BIHFjTDESXdDy mENwWO7aLm7zHQIqWNRuCtG8WFQFDX5QULWsGHBxbYWeJMOtNFXOGL9YFSgtDFL2AogygwKlxMRiGIas VV4WKZTwykAyPcCmDXYNDLw+Bs0NMY5pp6FlLLpyTqSaFL9qku4XRFtGYfCeW1U2hEXvY8T3CGerSl4I FYUyRCVqKhUaIQXVTPpkSJ6LGU2iscR7OS4GtUPbZB OhDCLmgAOxESo5K34hkPNlSLegLB0SDPH+Savannah+Vv2UMZFuSLHfSGVoWlWjRWOAQdPiV0SsZ5BHv2ArG6 BgUQ03hOscawLiVFrgDX4XIQ9fAWElUPCELL9CcGQwoB2gcbFbTKXpOWQKSaTxZ69znHXrFGJjKPG4RP JeYj1LSSGgS6QxbyFjnWmbkhOuMYHrEUZCTK9DVBbw dnPqrCExrMukXX82jWgrZL5DFg6VHrSnZL3gqe7YpLXfFw7NPKAdZH2OYJPbVSCdJWLrYQT5TVVzOaYv RSmvBARkGRXhFLR7UFAeTZDdPN9MSyEoJWQcAgZ7VEYtNPVgMJQofe3NYAKpPUNzVlP0CwUhUJOoMCFe YDndHUZjBEZxBGE3QVHaTBQaBM8APzYeIKKwKWA8JW HzWTJfIOAnbf0DPWFrVDHaTrM0PbOiJORyBRBjHKpeVEEuKRFlYRB0FXByGSRuLS2WPtBcGCJuZWSfAJ RlGWUgWLLjkd5LHVOtQZAqQdFgSCZyUGXkJOJfCKodZMTuWVP1HJD2RZQvAXNwML3SXfWhOFWaCTT7XE CqJJJeUSRbun9ZCTZpSHTrKSeySDQbPVMcDWXlXEbi HTEzVZX5UEz4MYEtZFArWM8TBxInFDXeARg1IPBqDOSfDALrja5FDDZkJGPyUoooEgLuEBYsVLLjCKur CKStJIW3AUKwLITcFADvMV7BFbDoLZFoBObaPFxbUGBjLCJwrp9ROLLkESAnMGL1MSKoJZNoFIUkIIcj HQSdHME3DaD8LMUuNOKxMS3MWhFvGXSqZYx0SjXbIG SyRJFpli6EVYGeEUCxRXR8JzSxLXSqGGJyEAmtYCNyCINlLFXuDOLxGCAiWH0KJfLjPWIuAoE6MkDeTK OmYXTbwk2LXWMfAFWzACB7QyYwMSRgNWGiOJraHICrEOGmVHs5IMWjHNQsLW2XQtLgCJTjIlJ6MxEsYB EgNHSplw1FTMLrIFHkSvonUKUtMXGpARMiHIf1cjRg sTOcIMh4TG0KP0OwkrLvXykRLf8Vg756HFO4OPBtEr8MN0ruUd7aZPHxIGUCTp1QOVf5UtcgBXLrRmT7 FRT6MdNpQFDrSPQkCVdqLQWbQZK7EIP+GWevJZZ0WVRdZMM8Knh0YIQyJVC3A2FyIXF5PXHvPhctOo3t XSANCj4+NVmbsHTgoKinNSWQPxYvFXR1GOzvTIOZVv4Y ID Date Data Source [id number] 07/31/2020 11:12:00 PM EDT [facility] Name Value Range Interpretation Code Description Data Sumaya rce(s) Supporting Document(s) Blood Urea Nitrogen 10 mg/dl 7-18 Normal (applies to non-nume zaina results) [facility] Creatinine 0.58 mg/dl 0.51-0.95 Normal (applies to non-numeric resul ts) [facility] N-Acetylcysteine (NAC) and Metamizole lemus ve the potential to falselydepress Creatinine results. Baseline values before medication adminstration are recommended. Patients undergoing treatment with phenindione will have falselydepressed results. Patients on phenindione therapy should be tested with an alternativeCREA method.Toxic levels of acetaminophen may lead to falsely depressed results forpatient samples. Glomerular Filtration Rate >90.00 mL/min/1.73m2 [facility] GFR Reference Ranges:Normal Function or Mild [...] of Health and the National KidneyFoundation. The [place] method used in calculating this result is traceable to IDMS standards. Glucose 129 mg/dl 70-110 Above high normal [facility] Sulfasalazine has the potential to false ly depress Glucose results. Sulfapyridine has the potential to falsely elevate Glucose results. Baseline values before medication administration are recommended. Calcium 8.6 mg/dl 8.5-10.1 Normal (applies to non-numeric resul ts) [facility] Sodium 140 mEq/L 136-145 Normal (applies to non-numeric resul ts) [facility] Potassium 3.9 mEq/L 3.5-5.1 Normal (applies to non-numeric resul ts) [facility] Chloride 108.0 mEq/L 98.0-107.0 Above high normal [facility] Anion Gap 8.9 [facility] Carbon Dioxide 27.0 mMol/L 21.0-32.0 Normal (applies to non-numeric results) [facility] The above 10 analytes were performed by [facility] [id number], ,[place] [address] ID Date Data Source [id number] 07/31/2020 10:55:00 PM EDT [facility] Name Value Range Interpretation Code Description Data Sumaya rce(s) Supporting Document(s) WBC 6.08 x1000/ul 4.80-10.00 Normal (applies to non-numeric re sults) [facility] RBC 3.67 x1Mil/ul 4.20-5.40 Below low normal [facility] Hemoglobin 8.8 g/dl 12.0-16.0 Below low normal [facility] Hematocrit 30.7 % 37.0-47.0 Below low normal [facility] MCV 83.7 fL 81.0-99.0 Normal (applies to non-numeric resul ts) [facility] MCH 24.0 pg 27.0-31.0 Below low normal [facility] MCHC 28.7 g/dl 32.2-37.0 Below low normal [facility] RDW 17.6 % 11.5-14.5 Above high normal [facility] Platelet Count 466 x1000/ul 130-400 Above high normal [facility] MPV 9.5 fL 9.4-12.4 Normal (applies to non-numeric resul ts) [facility] Neutrophils 64.4 % 40.0-74.0 Normal (applies to non-numeric resu lts) [facility] Lymphocytes 25.0 % 19.0-48.0 Normal (applies to non-numeric resu lts) [facility] Monocytes 7.6 % 3.4-9.0 Normal (applies to non-numeric resul ts) [facility] Eosinophils 1.5 % 0.0-7.0 Normal (applies to non-numeric resu lts) [facility] Basophils 1.0 % 0.0-2.0 Normal (applies to non-numeric resul ts) [facility] Immature Granulocytes 0.5 % 0.0-0.5 Normal (applies to non-nu meric results) [facility] Nucleated RBCs 0.00 % 0.00-0.20 Normal (applies to non-numeric r esults) [facility] Abs. Neutrophils 3.92 x1000/ul 1.92-8.31 Normal (applies to non-numeric results) [facility] Abs. Lymphocyte 1.52 x1000/ul 1.20-3.70 Normal (applies to non-n umeric results) [facility] Abs. Monocytes 0.46 x1000/ul 0.14-0.97 Normal (applies to non-nu meric results) [facility] Abs. Eosinophils 0.09 x1000/ul 0.00-0.76 Normal (applie s to non-numeric results) [facility] Abs. Basophils 0.06 x1000/ul 0.00-0.22 Normal (applies to non-n umeric results) [facility] Abs. Immature Gran. 0.03 x1000/ul 0.00-0.02 Above high normal [facility] Abs. Nucleated RBCs 0.00 x1000/ul 0.00-0.02 Normal (appl ies to non-numeric results) [facility] The above 24 analytes were performed by [facility] [place] [id number] [address], ,[place] [address] ID Date Data Source [id number] 07/31/2020 06:26:16 PM EDT [facility] Name Value Range Interpretation Code Description Data Sumaya rce(s) Supporting Document(s) Nursing Note [facility] XDKBQu4pIxBDKkVp16/CISwvQTOqp9VuPIhgUNd7TXheNIXkV9AdYCR9rU8iZEI3AVcEMqPeCiBbIMMv [facility] [file] AgICAgICAgICAgICAgICAgICAgICAgICAgICAgICAgICAgICAgICAgICAgICAgICAgICAgICAgICAgIC AgICAgICAgICAgICAgICAgICAgICAgICAgICAgICAgDQogICAgICAgICAgICAgICAgICAgICAgICAgIC AgICAgICAgICAgICAgICAgICAgICAgICAgICAgICAg ICAgICAgICAgICAgICAgICAgICAgICAgICAgICAgICAgICAgICAgICAgDQogICAgICAgICAgICAgICAg ICAgICAgICAgICAgICAgICAgICAgICAgICAgICAgICAgICAgICAgICAgICAgICAgICAgICAgICAgICAg ICAgICAgICAgICAgICAgICAgICAgICAgDQogICAgIC AgICAgICAgICAgICAgICAgICAgICAgICAgICAgICAgICAgICAgICAgICAgICAgICAgICAgICAgICAgIC AgICAgICAgICAgICAgICAgICAgICAgICAgICAgICAgICAgDQogICAgICAgICAgICAgICAgICAgICAgIC AgICAgICAgICAgICAgICAgICAgICAgICAgICAgICAg ICAgICAgICAgICAgICAgICAgICAgICAgICAgICAgICAgICAgICAgICAgICAgDQogICAgICAgICAgICAg ICAgICAgICAgICAgICAgICAgICAgICAgICAgICAgICAgICAgICAgICAgICAgICAgICAgICAgICAgICAg ICAgICAgICAgICAgICAgICAgICAgICAgICAgDQogIC AgICAgICAgICAgICAgICAgICAgICAgICAgICAgICAgICAgICAgICAgICAgICAgICAgICAgICAgICAgIC AgICAgICAgICAgICAgICAgICAgICAgICAgICAgICAgICAgICAgDQogICAgICAgICAgICAgICAgICAgIC AgICAgICAgICAgICAgICAgICAgICAgICAgICAgICAg ICAgICAgICAgICAgICAgICAgICAgICAgICAgICAgICAgICAgICAgICAgICAgICAgDQogICAgICAgICAg ICAgICAgICAgICAgICAgICAgICAgICAgICAgICAgICAgICAgICAgICAgICAgICAgICAgICAgICAgICAg ICAgICAgICAgICAgICAgICAgICAgICAgICAgICAgDQ ogICAgICAgICAgICAgICAgICAgICAgICAgICAgICAgICAgICAgICAgICAgICAgICAgICAgICAgICAgIC XoIGWeRERsBFPtNMGoCUHrLFIkNUKyMSLqQAQlXJCkGAMpVPLuHTQcQTj6P1ueTTXdKHAdWM5yIUv4Jz 8+GFdDLnUhMZH2sxGyuT5SRW5dw5SgQVmpPXHtk1Ue IZe3SM4IAEQcXNtvIR4NRSirok8MKPZaOLAjoEYAm6prBqSgFDH6UFXuGitcJC2VBYAoC1ajjtBrGQBx XIBMII8OLmUtU0QmlA20EBNOOf1+ZGkunkFeXjtVFuGbHECfu7TvNNn6NZ3OYIMkHrfqz3RoZaCeBCBU IRuoPY9VQDP7JBQuSXRyQf7FUYJaU760quImHN4UIw 0ZTkLvNW4hmq7DJmDdGKOpNreFVab8AVuiRK4BqKLnKUeOmLWfgV1mDH4lrWUuSeyhUQtbncOaMUbsu0 X1wREwARKUVoAlkBLpZP2wPX1dBTTtDRU5BtP3ZTWFWG4WSJIiAQChcJZzZALbEIKZDB7UMVnhQIZ8Wq fyyrTufGZuNKqvHB8ZYGUfiiGyQaGjWJMRSZa+Pg0K NC3fv2ShXHrxMFZkLT4gzf5XOLeYIfRnY5F6hDEwH2O7PVkuSt0DTVVuMXDqSpJjKELWASojLL4BOQ7t krX5RD0GsABeCXDvOURnpRIqBZx1Q08eqZUpSKheKD3TMMM+Savannah+Kv7GRHTiIJNqPHGuTcIeWOJSUpQs Q6XyH2GSc3VnU0KdNY19dRkrqpGqCEwlXE9OYA6wLE CyHEJWTT7HmTPplE6bcaHhNfVsAWQQOjCqO99riFIyHFPgTPYmGAVaFj4PGGVjU0DhddBoeIqoeyUwOZ BcMBVTWL2SERzhnhPhuTKujIibIX11fGbjIC1GSu7PAuDhEN7ybb6UtRHnZt8UCTZxJN3DCFMdKOHmTT PwOFZ5ONHnJyNnFBzxHHJmNVNiUBC0IBUiKOLcOL2N OiWkMBQmGBt3QoViCRPnQQHfok0RHRUxUZUcVQU5DzMlILLoZMAxOLxnYCXpKDPnZDE4DEWzALWoAG3D IcDdADQhZZCdBGNvCGJiJAQxsk0JSTMgHONmHBZ9BTQcJUWqUJBuZAsrFXLlYSPdAYO6QLDiHOWeKA8M KxKaWNIkIQK7EWzbXJKwEGLhrv1QGQPbYHSfJir4Lg RzAEPhYDEyWOhqJGErRRErPRFcHRDeCNSgCG8AZvKeSJRgULAsJVwpGRDtEKHjtu9REJLeHBLzRUH3BC FkQSXyCGMnLZdwUFOmFHX9DbFnKBIjZXNyKE3JMsMmBUVvBYN4EEJoDVQgKQUlop7ZRFJuPLFxUxA4HF IiRTJtXTRxIYybASXbHEG6Kgv3MSCoDUWbSG6RMcEt JRYhBLr7PNTrCWIzZIQhej8JTCEaYCPnEBH6OdNsPAUsLSLhGWksJMKuNED3EkX2LFDfDPMsVD5FXoWg VVByMLw6FKHmLPKrFXRire6RBKWsSTWgGGJ4AjDxPSGyHZRpLLarFVLvQFAlWhe2QGPgHMOpWW1UNsQa FLDwJbW1DcPqTYTzSEHoqo5ULUTeYWRdOPfdVMWcJN GkBKLyRRg7maPjjCHuWFc6OO3YA6DfzqTpMiPXGi7An097JVG0TBSxLs8SB5hlEz6lRZNqAJQABv8KMO i4S8MzToS6VbC1VJMqXcUjOGC8XPF3WnOmPqHyRJMrVMY+GUjdXDQiDDDwZII4XDUcHiTgBYl8UFwbTL OaEFEuWQUqOS3zZWJZTh4+ALrmcTVdgBkwACKVTzGdFZL0EFwlPWWVXi3F ID Date Data Source [id number] 07/31/2020 06:17:40 PM EDT [facility] Name Value Range Interpretation Code Description Data Sumaya rce(s) Supporting Document(s) Care Plan [facility] HVVXQr6qJgJYLrQb66/IRCoaWLKjs8ZaQKzbJNl4JOdgFXInN5LiJGM8bJ2yNHH3ARtCHtObUwAtHAId lbm [file] PbNbFeKZZoWAAtByOzWIG0JNI+DU9eGSl+Hp4Lz3KoeoD3ehHxKCicSbXlPY7HBUGCE3HUOz== ID Date Data Source [id number] 07/31/2020 05:39:58 PM EDT [facility] Name Value Range Interpretation Code Description Data Sumaya rce(s) Supporting Document(s) H&P [facility] HDUADu8hGrXMYyOh64/VLGxcOYIcz2AzSMvxOXh5OOjdBMElM2IgAMV4pQ9uXHX3WNvOPqDaSwXsTPLr lbm [file] AgICAgICAgICAgICAgICAgICAgICAgICAgICAgICAgICAgICAgICAgICAgICAgICAgICAgICAgICAgIC AgICAgICAgICAgICANCiAgICAgICAgICAgICAgICAgICAgICAgICAgICAgICAgICAgICAgICAgICAgIC AgICAgICAgICAgICAgICAgICAgICAgICAgICAgICAg ICAgICAgICAgICAgICAgICAgICAgICANCiAgICAgICAgICAgICAgICAgICAgICAgICAgICAgICAgICAg ICAgICAgICAgICAgICAgICAgICAgICAgICAgICAgICAgICAgICAgICAgICAgICAgICAgICAgICAgICAg ICAgICANCiAgICAgICAgICAgICAgICAgICAgICAgIC AgICAgICAgICAgICAgICAgICAgICAgICAgICAgICAgICAgICAgICAgICAgICAgICAgICAgICAgICAgIC AgICAgICAgICAgICAgICANCiAgICAgICAgICAgICAgICAgICAgICAgICAgICAgICAgICAgICAgICAgIC AgICAgICAgICAgICAgICAgICAgICAgICAgICAgICAg ICAgICAgICAgICAgICAgICAgICAgICAgICANCiAgICAgICAgICAgICAgICAgICAgICAgICAgICAgICAg ICAgICAgICAgICAgICAgICAgICAgICAgICAgICAgICAgICAgICAgICAgICAgICAgICAgICAgICAgICAg ICAgICAgICANCiAgICAgICAgICAgICAgICAgICAgIC AgICAgICAgICAgICAgICAgICAgICAgICAgICAgICAgICAgICAgICAgICAgICAgICAgICAgICAgICAgIC AgICAgICAgICAgICAgICAgICANCiAgICAgICAgICAgICAgICAgICAgICAgICAgICAgICAgICAgICAgIC AgICAgICAgICAgICAgICAgICAgICAgICAgICAgICAg ICAgICAgICAgICAgICAgICAgICAgICAgICAgICANCiAgICAgICAgICAgICAgICAgICAgICAgICAgICAg ICAgICAgICAgICAgICAgICAgICAgICAgICAgICAgICAgICAgICAgICAgICAgICAgICAgICAgICAgICAg ICAgICAgICAgICANCiAgICAgICAgICAgICAgICAgIC AgICAgICAgICAgICAgICAgICAgICAgICAgICAgICAgICAgICAgICAgICAgICAgICAgICAgICAgICAgIC AgICAgICAgICAgICAgICAgICAgICANCjw/pCBqG6bjlSFffrF7U3gbEo4NTq8AHR3hq3BbXNDtOMyvxv GtXtcQJmKtGDOoZouPFxa3RXaaIY3AuEPbP6EwS8Yg HRspQP3AXHCmYSKlyRTxVGGbDJPuAaZ6CKQrODsxVP8IyUDtGLcqHSIpIHNlBzBcGSKsOZPlKQFcFQXd DQJPAV6QYnWaH2VngA97HQIIAa3+PDelihElEdzGNmU7XNSth6XqTFi4FU5EQBCwKtnxm3UpVhpeDMDL TFtpMW9PORK4KET5ADXoMe5MWITvO660vqWpTB3YAg 3YBfQtPB6pjg4EFsqrCXIdMsdXNso5PAxjZF5YxBUdRPgNXpHcTpteOPOvfWZoDEbjmBO2FCAUGAHfkF EcAO2rCB7fFYAdLISgJoU7HIKHDO9ZFKEqPAYjpSOmZUIlNSHNWA3CBRnnZHF7PyygmxEiiPXgQXemOZ 9QYXJlbnQgMjYgMCBSDQo+Jj4WHT4to0MfVNjzHNYm DV6fjv2YDPbOHqXjP6A2tAYiN8D4CDjlBz1OPGRnIOKwFoEtJGWTYFlmHF8MYB1sthT2TP9SeMUrJGTz ZWBlaBPoKSv8G11agASyCTnnUS4FJPE+Savannah+Qn1HJMUlISBxAFDqJeYeLNCIIfRkR6SnG8SNy1KmU4Ai DJ31yUthwzMyVItnBS9ZZO1xXEXkWGROYS0FpQSljN 4gmyRjSmHaYWKPPbEsA11eiARfBFEuXZD0XBKeEg2SJBVnB7UfhwLagHimzdKsMCGyXQICEW3MTMpsvb ZqeEPviVmkHS34eYscES4ARm1ASvYaKK8iqe4WfJCeDs9CYDLzEF7OIYEhUFXaCBKwGII3UIBiGbQpZA yeDRPlHRMhQUI4QDWqMKBaUT9MQpYhYOOwSOX8NSKq GEAfBUGeiu7GLERuLGInMCS3SiGeNXBjQVYkRDxpUOSpTAUtCBL2OVKnZHLxCF2XQeZpIDDiSAX8AXMk ZTGcYAXrpj5CRPHcGTIfXWW0FNMmVDFsRZEcGWhmXXXtLRP7CZg8MDKjHEYdPI9NDfFmLYYkASorCNid GSYdLZMjsd1HSQYaUNXyHEZ3JNNhXTWjCHMgZPgiPF GcHLW8UNv8JLRjGLAzJF4MSaNqDUTaNXAsQOViNUTuGQSkow9HJYGhGVDlWZO6WoJjOVMsQUMfKVhpPS GcALBwHfW6FWIvXWYpTO5ZRyBaGIGiSKU0QNykVHTxYSVgry9UBHGwACKrPdFoZbYgBTXeCGPdTCmjVF RlBDWrRKv7QPFjQIHdAK7GOnPsHIKoTEJ8QTFgNFLi DIUgfq1ZEPQyQSGnHzt2ZiEoMSYdCZRnJXugIBOyFTL4JOC8SCYxBIKrXV6MZwZvKDZbPYUjZCNiDNBm UFJpau6CPXQeANDdVPHkTuNbUWUtOEEnGKcdMVXsPBA3VxagYVLoGWLgFG1EPzXiBVRoUAM6UPJhEKJh OTWkpm9YCRVbYEMpKkY7SyLtNQJyTHIqYZgjSZTbFI F5WQS4MUAjQJMjMN7QHmCaJYJkMDz9IgCdAZAvYSWflu6IIRJeKBOiXMK1TVLeEEEqKGItRXuzYRPwYB U5AhtpPYGuIRLzWC0UErBuVHtyXKGAWqj7FCeuB7q8FZHsWN0KP2Rge8FpZbfnFYFDCBpoXZ4zvhEaVH MaHh4NX5oEMqloLOB5XASuURLzUGY8O5AvNYpoKxY6 YXKqAFKbOsPaYZ2ePSSwLTXdZrGzJHFpDHBwOBUlZKQkTMErUKL2RHM1QQJ8VkRxUB9IKe5SPuZ7BPU7 sIQdWs4XOGpsDqKGSoBrMM5TLGk= ID Date Data Source [id number] 07/30/2020 03:19:00 PM EDT [facility] 1 OrderSheet [facility] Emergency Department [address] [place] [address] Phone #: ext- [phone] 07/30/2020 15:09 Patient: [...] 19:32 Zenaida SIMMONS; Gilson RN 2 OrderSheet [facility] Emergency Department [address] [place] [address] Phone #: ext- [phone] 07/30/2020 15:09 Patient: [...] mL/hr Mikey SIMMONS;Promethazine IV 15:35 07/30/2020 16:07 Swyww12mz in 50mL NS, Mikey Riggins RNgive wide open: 25 PA;mg (NOW x1, HIGHALERTMEDICATION)Dilaudid 1 mg IVP, 15:35 07/30/2020 16:08 Dorismay repeat q30min Mikey Riggins RNX 3 PRN Pain: 1 mg PA;(NOW x1, mayrepeat [id number] 3 PRN Pain, keepo2 sat > 90%, [...] Zenaida Riggins RN (19:32 07/30/2020)] 3 OrderSheet [facility] Emergency Department [address] [place] [address] Phone #: ext- [phone] 07/30/2020 15:09 Patient: NI DIAZ Sex: F : 1980 Age: 40y[Electronically signed by Mikey Oswald (17:29 07/31/2020)][Electronically locked by Zenaida Riggins RN (19:32 07/30/2020)] Name Value Range Interpretation Code Description Data Sumaya rce(s) Supporting Document(s) ID Date Data Source [id number] 07/30/2020 03:19:00 PM EDT [facility] 1 Medication Reconciliation Report [facility] Emergency Department [address] [place] [address] Phone #: ext- [phone] 07/30/2020 15:09 [id number] Sex[facility] F : 1980 Age: 40yWeight: 68.0 kgHeight/Length: 67 in.BMI: 23.5ALLERGIES: Levaquin, NSAID, Sulfa AntibioticsThe patient's Home Medications are listed below:CONTINUE TAKING THE FOLLOWING MEDICATIONS: Ambien Oral 7.5, daily, via J tube, prn,at bedtime Benadryl IV 50mg QDAY for nausea, 2x a day Carafate Oral 1 gm, q4h, via J tube Creon Oral (5869-1668 unit) 1 capsule, 4x a day, J [...] 07/30/2020 4:00:00 PM 2 Medication Reconciliation Report [facility] Emergency Department [address] [place] [address] Phone #: ext- [phone] 07/30/2020 15:09 Patient: [...] rce(s) Supporting Document(s) ID Date Data Source [id number] 07/30/2020 03:19:00 PM EDT [facility] 1 Medication Administration Record [facility] Emergency Department [address] [place] [address] Phone #: ext- [phone] 07/30/2020 15:09 Patient: NI DIAZ Sex: F : 1980 Age: 40yWeight: 68.0 kgHeight/Length: 67 inBMI: 23.5ALLERGIES: Levaquin, NSAID, Sulfa Antibiotics Date/Time Medication Administered Medication OrderedStart IV NS IV NS : Bolus 1000 mL, then 61848:00 07/30/2020 Dose: IV Fluids mL/hrZenaida Riggins, RN [...] Dispensed: 50 mL bagStop Site: #2 left ruemonf04:15 07/30/2020Zenaida Riggins RNGiven DILAUDID [IVP] (HYDROMORPHONE Dilaudid 1 mg IVP, may isddox03:03 07/30/2020 HCL) q30min X 3 PRN Pain: 1 mg (Maricruz Riggins RN Dose: 1 mg IVP x1, may repeat [id number] X 3 In: NS 10 mL PRN Pain, keep o2 sat > 90%, Site: #2 left forearm HIGH ALERT MEDICATION)Given DILAUDID [IVP] (HYDROMORPHONE Dilaudid 1 mg IVP, may jqdzas41:44 07/30/2020 HCL) q30min X 3 PRN Pain: 1 mg (Maricruz Riggins RN Dose: 1 mg IVP x1, may repeat [id number] X 3 In: NS 10 mL PRN [...] rce(s) Supporting Document(s) ID Date Data Source [id number] 07/30/2020 03:19:00 PM EDT [facility] 1 General Instructions [facility] Emergency Department [address] [place] [address] Phone #: ext- [phone] 07/30/2020 15:09 Patient: NI DIAZ [facility]#: [id number] Sex: F : 1980 Age: 40yChronic generalized [...] of Abdominal Pain (Female) 2 General Instructions [facility] Emergency Department [address] [place] [address] Phone #: ext- [phone] 07/30/2020 15:09 Patient: [...] careYour healthcare provider may prescribe medicine for fraiba n, symptoms, or an infection. Follow thehealthcare provider's instructions for taking these medicines. 3 General Instructions [facility] Emergency Department [address] [place] [address] Phone #: ext- [phone] 07/30/2020 15:09 Patient: [...] begin to improve in thenext 24 hours.Call [phone] if any of these occur: Trouble breathing Confusion Fainting or loss of consciousness Rapid heart rate 4 General Instructions [facility] Emergency Department [address] [place] [address] Phone #: [phone] ext- [phone] 07/30/2020 15:09 Patient: NI DIAZ Sex: F : 1980 Age: 40y SeizureWhen to seek medical adviceCall your [facility] provider right away if any of these [...] or water and you are getting dehydrated [id number] [employer]. [address] [place] [address] 55542. All rights reserved. This information is not intended as asubstitute for professional medical care. Always follow your healthcare professional's instructions. You have been given the following additional information: Abdominal Pain, Unknown Cause, (Female)(Electronically signed by TROY Rosa 07/31/2020 17:29) Name Value Range Interpretation Code Description Data Sumaya rce(s) Supporting Document(s) ID Date Data Source [id number] 07/30/2020 03:19:00 PM EDT [facility] 1 Clinical Report - Nurses [facility] Emergency Department [address] [place] [address] Phone #: ext- [phone] 07/30/2020 15:09 Patient: NI DIAZ Sex: F : 1980 Age: 40yTRIAGEArrived by private vehicle. Historian: patient.Acuity: LEVEL 3.Chief Complaint: ABDOMINAL PAIN, NAUSEA and VOMITING.This started last night. 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 Creon Oral (Capsule Delayed Release Particles [id number] unit) 1 capsule, 4x a day, J [...] Riggins RN. 2 Clinical Report - Nurses [facility] Emergency Department [address] [place] [address] Phone #: ext- [phone] 07/30/2020 15:09 Patient: NI DIAZ [facility]#: [id number] Sex: F : 1980 Age: 40yPROBLEMS:Pulmonary Embolism.Anemia.Status [...] no deficiencies. 3 Clinical Report - Nurses [facility] Emergency Department [address] [place] [address] Phone #: ext- [phone] 07/30/2020 15:09 Patient: NI DIAZ [facility]#: [id number] Sex: F : 1980 Age: 40y FUNCTIONAL ASSESSMENT: Functional assessment: no impairments noted. LEARNING NEEDS ASSESSMENT: The learning needs assessment revealed no barriers. FALL RISK ASSESSMENT: Fall risk assessment completed. No risk factors identified. SKIN INTEGRITY ASSESSMENT: Skin integrity risk assessment completed. No skin integrity risk identified. --15:14 07/30/20 Jeff Metcalf RN.PHYSICAL [id number]:18 07/30/20. To room via wheelchair.GENERAL / NEURO [...] site checked: 4 Clinical Report - Nurses [facility] Emergency Department [address] [place] [address] Phone #: ext- [phone] 07/30/2020 15:09 Patient: [...] Patient transported to CT by wheelchair with echo tech. --16:31 07/30/20 Uday RN16:39 07/30/20. Patient returned from radiology and CT by wheelchair with echo tech. --16: Zenaida Riggins, RN16:43 07/30/20. Reassessment after [...] fluids administered. 5 Clinical Report - Nurses [facility] Emergency Department [address] [place] [address] Phone #: ext- [phone] 07/30/2020 15:09 Patient: [...] thoroughly. --18:51 6 Clinical Report - Nurses [facility] Emergency Department [address] [place] [address] Phone #: ext- [phone] 07/30/2020 15:09 Patient: [...] Heparin flush by Ifeoma Navarrete RN @ 0821). --19:31 07/30/20 Zenaida Riggins RN.DISPOSITION / DISCHARGE [...] Patient verbalized understanding. Written instructions provided in Macedonian. The patient was discharged home and accompanied by spouse. She left ambulatory and via private vehicle. Spouse driving. --19:25 07/30/20 Zenaida Riggins RN.Locked/Released at 07/30/2020 19:32 by Zenaida Riggins RN Name Value Range Interpretation Code Description Data Sumaya rce(s) Supporting Document(s) ID Date Data Source [id number] 07/30/2020 03:19:00 PM EDT [facility] 1 Clinical Report - Physicians/Mid Levels [facility] Emergency Department [address] [place] [address] Phone #: ext- [phone] 07/30/2020 15:09 [id number] Sex: F : 1980 Age: 40y Time [...] The patient was seen recently at this [facility] it.REVIEW OF SYSTEMSThe patient has had [...] chest. 2 Clinical Report - Physicians/Mid Levels [facility] Emergency Department [address] [place] [address] Phone #: ext- [phone] 07/30/2020 15:09 [id number] Sex: F : 1980 Age: 40y Nadege-en-Y gastrojejunostomy [2009]. Spinal fusion. Spinal fusion. Medications: Ambien Oral 7.5, daily as needed, at bedtime, via J tube. Benadryl IV 50mg QDAY for nausea, 2x a day. Carafate Oral 1 gm, q4h, via J tube. Creon Oral (Capsule Delayed Release Particles [id number] unit) 1 capsule, 4x a day, J [...] study 3 Clinical Report - Physicians/Mid Levels [facility] Emergency Department [address] [place] [address] Phone #: ext- [phone] 07/30/2020 15:09 Patient: [...] yrs 4 Clinical Report - Physicians/Mid Levels [facility] Emergency Department [address] [place] [address] Phone #: ext- [phone] 07/30/2020 15:09 Patient: NI DIAZ Sex: F : 1980 Age: 40y NON-AA GFR >60 mL/min AFR AMER GFR >60 mL/min Male GFR Interprentation 20-49 yrs >60 mL/min Tyrxlx63-41 yrs >56 mL/min Normal 60-69 yrs >49 mL/min Normal 70-79yrs>42 mL/min Normal 80 and above >35 mL/min Normal Female GFRInterpretation 20-39 yrs >60 mL/min Normal 40-49 yrs >58 mL/minNormal 50-59 yrs >51 mL/min Normal 60-69 yrs >45 mL/min Gnrobb32-28 yrs >39 mL/min Normal 80 and above >32 mL/min NormalLactic Acid: (LUISANA: 07/30/2020 15:30) ( MogRcvd 07/30/2020 16:07) Final results Test Result Flag Units (Reference) LACTIC ACID 3.0 H MMOL/L (0.2 - 2.2)Lipase: (LUISANA: 07/30/2020 15:30) ( MsgRcvd 07/30/2020 16:31) Final results Test Result Flag Units (Reference) LIPASE 28 U/L (13 - 60)Magnesium: (LUISANA: 07/30/2020 15:30) ( [facility] Final results Test Result Flag Units (Reference) MAGNESIUM 2.0 MG/DL (1.7 - 2.2)Phosphorus: (LUISANA: 07/30/2020 15:30) ( [facility] 16:31) Final results Test Result Flag Units (Reference) PHOSPHORUS 4.0 MG/DL (2.5 - 4.5)PT/PTT: (LUISANA: 07/30/2020 15:30) ( [facility] 16:07) Final results Test Result Flag Units (Reference) PROTIME 12.6 SECONDS (11.0 - 15.5) INR 0.93 (0.93 - 1.23) PTT 26.8 SECONDS (24.8 - 36.7) \\BLDo\\INR INTERPRETATION\\BLDx\\ Therapeutic range for Coumadin andrelated oral anticoagulants. -International Normalized Ratio (INR): 2.0 - 3.0 for VenousThrombosis, Pulmonary Embolus, Tissue heart valves, Acute NH Atrial Fibrillation, Valvular heart diseaseand recurrent Systemic Embolism. -International Normalized Ratio (INR): 2.5 - 3.5 forMechanical Prosthetic valve.CT Abd PEL W/ IV Contrast Only: (LUISANA: 07/30/2020 15:35) ( [facility] 17:43) In ProgressCT ABDReason(s): Abdominal PainTRANSPORTATION: WC IV? IV?(Yes) O2? Oxygen?(No) Ro Exam CT ABD //T// PELVIS W/ IV ONLY [address] [place] [address] PHONE: [phone] FAX: [phone] Name .................. : BASILIO Torres Acct Number.................. : [id number] ROOM. ................. : [facility] MR Number ................... : [id number] Stay type ............. : E/R Discharge Date......... ... : Admit Date ......... : 07/30/20 Admit Phys .................... : MICHELLE PA Date of ....... : 1980 Family Phys ................... : MITA ROCHE Phone .................. : [phone] Age ................................ : 40 5 Clinical Report - Physicians/Mid Levels [facility] Emergency Department [address] [place] [address] Phone #: ext- [phone] 07/30/2020 15:09 Patient: NI DIAZ Sex: F : 1980 Age: 40y Film# .................. .:[id number] Sex ................................. : F Unsigned transcriptions are [...] free air or ascites. Page 1of 2 [place] [address] PHONE: [phone] FAX: [phone] Name .................. : BASILIO DAN Melissa Acct Number.................. : [id number] ROOM. ................. : TR-1B Number ................... : [id number] Stay type ............. : E/R Discharge Date......... ... : Admit Date ......... : 07/30/20 Admit Phys ........... ......... : MICHELLE SIMMONS Date of ....... : 1980 Family Phys ................... : MITA ROCHE Phone .................. : [phone] Age ................................ : 40 Film# .................. .:[id number] Sex ................................. : F Unsigned transcriptions are preliminary reports and do not represent a medical or legal document CT ABD Reason(s): Abdominal Pain 6 Clinical Report - Physicians/Mid Levels [facility] Emergency Department [address] [place] [address] Phone #: ext- [phone] 07/30/2020 15:09 Patient: [...] tests back. (Discussedcase with Hospitalist Carlitos Kruger TRAVELING CLERK and he feels pt should be transferred, pt does not with to [facility] and pain is better after 50mcg Fentanyl, [...] diabetes. 7 Clinical Report - Physicians/Mid Levels [facility] Emergency Department [address] [place] [address] Phone #: ext- [phone] 07/30/2020 15:09 [id number] Sex: F : 1980 Age: 40yINSTRUCTIONS Warnings: [...] Creon Oral : Capsule Delayed Release Particles [id number] unit, 1 capsule 4x a day, J [...] rce(s) Supporting Document(s) ID Date Data Source [id number] 07/31/2020 04:40:00 PM EDT [facility] Name Value Range Interpretation Code Description Data Sumaya rce(s) Supporting Document(s) Procalcitonin <0.05 ng/ml 0.00-0.50 Normal (applies to non-numeric r esults) [facility] PCT Concentration: <= 0.5 ng/mLInterpre tation: [...] shockThe above 1 analytes were performed by [place] [id number], ,[place] [address] ID Date Data Source [id number] 07/31/2020 04:29:00 PM EDT [facility] Name Value Range Interpretation Code Description Data Sumaya rce(s) Supporting Document(s) AST 20 IU/L 15-37 Normal (applies to non-numeric resul ts) [facility] Sulfasalazine and sulfapyridine have the potential to falsely depressAspartate Aminotransferase results. Baseline values before medication administration are recommended. ALT 48 IU/L 13-56 Normal (applies to non-numeric resul ts) [facility] Sulfasalazine and sulfapyridine have the potential to falsely depressAlanine Aminotransferase results. Baseline values before medication administration are recommended. Alkaline Phosphatase 151 mIU/ml 50-136 Above high normal [facility] Total Bilirubin 0.40 mg/dl 0.20-1.00 Normal (applies to non-numeric results) [facility] Blood Urea Nitrogen 8 mg/dl 7-18 Normal (applies to non-nume zaina results) [facility] Creatinine 0.53 mg/dl 0.51-0.95 Normal (applies to non-numeric resul ts) [facility] N-Acetylcysteine (NAC) and Metamizole lemus ve the potential to falselydepress Creatinine results. Baseline values before medication adminstration are recommended. Patients undergoing treatment with phenindione will have falselydepressed results. Patients on phenindione therapy should be tested with an alternativeCREA method.Toxic levels of acetaminophen may lead to falsely depressed results forpatient samples. Glomerular Filtration Rate >90.00 mL/min/1.73m2 [facility] GFR Reference Ranges:Normal Function or Mild [...] of Health and the National KidneyFoundation. The [place] method used in calculating this result is traceable to IDTX standards. Glucose 106 mg/dl 70-110 Normal (applies to non-numeric resul ts) [facility] Sulfasalazine has the potential to false ly depress Glucose results. Sulfapyridine has the potential to falsely elevate Glucose results. Baseline values before medication administration are recommended. Calcium 8.9 mg/dl 8.5-10.1 Normal (applies to non-numeric resul ts) [facility] Total Protein 6.7 g/dl 6.4-8.2 Normal (applies to non-numeric re sults) [facility] Albumin 3.6 g/dl 3.4-5.0 Normal (applies to non-numeric resul ts) [facility] Sodium 140 mEq/L 136-145 Normal (applies to non-numeric resul ts) [facility] Potassium 3.8 mEq/L 3.5-5.1 Normal (applies to non-numeric resul ts) [facility] Chloride 110.0 mEq/L 98.0-107.0 Above high normal [facility] Anion Gap 8.8 [facility] Carbon Dioxide 25.0 mMol/L 21.0-32.0 Normal (applies to non-numeric results) [facility] The above 16 analyt[address] [facility] [facility] [id number], ,[place] [place] [address] ID Date Data Source [id number] 07/31/2020 04:29:00 PM EDT [facility] Name Value Range Interpretation Code Description Data Sumaya rce(s) Supporting Document(s) Lipase 125 IU/L 73-393 Normal (applies to non-numeric resul ts) [facility] The above 1 analytes were performed by [facility] [id number], ,[place] [address] ID Date Data Source [id number] 07/31/2020 04:29:00 PM EDT [facility] Name Value Range Interpretation Code Description Data Sumaya rce(s) Supporting Document(s) C-Reactive Protein (Non-Cardiac) <2.90 mg/L 0.00-3.00 Normal (applies to non- numeric results) [facility] The above 1 analytes were performed by [facility] [id number], ,[place] [address] ID Date Data Source [id number] 07/31/2020 04:14:00 PM EDT [facility] Name Value Range Interpretation Code Description Data Sumaya rce(s) Supporting Document(s) WBC 6.62 x1000/ul 4.80-10.00 Normal (applies to non-numeric re sults) [facility] RBC 3.77 x1Mil/ul 4.20-5.40 Below low normal [facility] Hemoglobin 9.1 g/dl 12.0-16.0 Below low normal [facility] Hematocrit 31.1 % 37.0-47.0 Below low normal [facility] MCV 82.5 fL 81.0-99.0 Normal (applies to non-numeric resul ts) [facility] MCH 24.1 pg 27.0-31.0 Below low normal [facility] MCHC 29.3 g/dl 32.2-37.0 Below low normal [facility] RDW 17.7 % 11.5-14.5 Above high normal [facility] Platelet Count 487 x1000/ul 130-400 Above high normal [facility] MPV 9.4 fL 9.4-12.4 Normal (applies to non-numeric resul ts) [facility] Neutrophils 80.2 % 40.0-74.0 Above high normal [facility] Lymphocytes 13.3 % 19.0-48.[address] [facility] Monocytes 5.1 % 3.4-9.0 Normal (applies to non-numeric resul ts) [facility] Eosinophils 0.3 % 0.0-7.0 Normal (applies to non-numeric resu lts) [facility] Basophils 0.9 % 0.0-2.0 Normal (applies to non-numeric resul ts) [facility] Immature Granulocytes 0.2 % 0.0-0.5 Normal (applies to non-nu meric results) [facility] Nucleated RBCs 0.00 % 0.00-0.20 Normal (applies to non-numeric r esults) [facility] Abs. Neutrophils 5.31 x1000/ul 1.92-8.31 Normal (applies to non-numeric results) [facility] Abs. Lymphocyte 0.88 x1000/ul 1.20-3.70 Below low normal [facility] Abs. Monocytes 0.34 x1000/ul 0.14-0.97 Normal (applies to non-nu meric results) [facility] Abs. Eosinophils 0.02 x1000/ul 0.00-0.76 Normal (applie s to non-numeric results) [facility] Abs. Basophils 0.06 x1000/ul 0.00-0.22 Normal (applies to non-n umeric results) [facility] Abs. Immature Gran. 0.01 x1000/ul 0.00-0.02 Normal (appl ies to non-numeric results) [facility] Abs. Nucleated RBCs 0.00 x1000/ul 0.00-0.02 Normal (appl ies to non-numeric results) [facility] The above 24 analytes were performed by [facility] [place] [id number],[facility] [id number] [id number] ID Date Data Source [id number] 07/31/2020 05:17:00 AM EDT [facility] 1 OrderSheet [facility] Emergency Department [address] [place] [address] Phone #: [phone] ztd- [phone] 07/31/2020 05:13 [id number] Sex: F : 1980 Age: 40yWEIGHT:68.0 kg [...] (Clean STAT 05:44 07/31/2020 Ack'd: 06:12 09:51 [place]umetJohn ovalles) Joelle Leonardo R.N. Physician; R.N.Sed. Rate STAT 05:47 07/31/2020 06:12 Cheri Martinez R.N. Physician;CRP STAT 05:47 07/31/2020 06:12 Cheri Martinez R.N. Physician;DIAGNOSTIC STUDY ORDERSOrder Description Priority Entered Acknowledged Initialed 2 OrderSheet [facility] Emergency Department [address] [place] [address] Phone #: ext- [phone] 07/31/2020 05:13 Patient: NI DIAZ Sex: F [...] 200 mL/hr 05:47 07/31/2020 06:15 Michelle,(NOW) Cheri Lai R.N. Physician;Dilaudid IVP 1 mg 06:34 07/31/2020 [...] ALERT Alec Castrejon R.N.MEDICATION) Physician; 3 OrderSheet [facility] Emergency Department [address] [place] [address] Phone #: ext- [phone] 07/31/2020 05:13 Patient: NI DIAZ Sex: F : 1980 Age: 40yPhenergan IV 12.5 09:57 07/31/2020 10:07 mg Landon (HIGH ALERT Alec Castrejon R.N.MEDICATION, Physician;NOW)GENERAL ORDERSOrder Description Priority Entered Acknowledged InitialedTransfer: (Transfer 10:21 07/31/2020 10:22 [facility] ([facility];Soha) byambulance as perDr. Henning(AcceptingHospitalist) -07/31/20 09:55)[Electronically signed by Cheri Burris Physician (06:50 07/31/2020)][Electronically signed by Lucía Navarrete R.N. (11:01 07/31/2020)][Electronically signed by Alec Calderón Physician (14:41 07/31/2020)][Electronically locked by Lucía Navarrete R.N. (11:01 07/31/2020)] Name Value Range Interpretation Code Description Data Sumaya rce(s) Supporting Document(s) ID Date Data Source [id number] 07/31/2020 05:17:00 AM EDT [facility] 1 Medication Reconciliation Report [facility] Emergency Department [address] [place] [address] Phone #: ext- [phone] 07/31/2020 05:13 Patient: [...] gm, q4h, via J tube Creon Oral ([id number] unit) 1 capsule, 4x a day, J [...] 07/31/2020 6:10:00 AM 2 Medication Reconciliation Report [facility] Emergency Department [address] [place] [address] Phone #: ext- [phone] 07/31/2020 05:13 Patient: [...] rce(s) Supporting Document(s) ID Date Data Source [id number] 07/31/2020 05:17:00 AM EDT [facility] 1 Medication Administration Record [facility] Emergency Department [address] [place] [address] Phone #: ext- [phone] 07/31/2020 05:13 Patient: NI DIAZ Sex: F : 1980 Age: 40yWeight: 68.0 kgHeight/Length: 67 inBMI: 23.5ALLERGIES: Levaquin, NSAID, Sulfa Antibiotics Date/Time Medication Administered Medication OrderedGiven DILAUDID [IVP] (HYDROMORPHONE Dilaudid IVP 1 mg (HIGH ALERT06:10 07/31/2020 HCL) MEDICATION)Melaragno, Joelle, R.N. Dose: 1 mg IVP Site: #1 [...] 07/31/2020 Dose: 25 mcg IVP HIGH ALERT MEDICATION)Lucía Navarrete R.N. In: NS 10 mL Site: [...] Name Value Range Interpretation Code Description Data Usmaya rce(s) Supporting Document(s) ID Date Data Source [id number] 07/31/2020 05:17:00 AM EDT [facility] 1 General Instructions [facility] Emergency Department [address] [place] [address] Phone #: [phone] ext- [phone] 07/31/2020 05:13 Patient: NI DIAZ Sex: F [...] rce(s) Supporting Document(s) ID Date Data Source [id number] 07/31/2020 05:17:00 AM EDT [facility] 1 Clinical Report - Nurses [facility] Emergency Department [address] [place] [address] Phone #: ext- [phone] 07/31/2020 05:13 Patient: NI DIAZ Sex: F [...] had nausea, vomiting, diarrhea and abdominal pain.Treatment BOTANY TECHNICIAN:None. --05:19 07/31/20 Joelle Martinez R.N.05:14 07/31/20. BP: [...] tube. Creon Oral (Capsule Delayed Release Particles [id number] unit) 1 capsule, 4x a day, J [...] R.N.PROBLEMS:Gastric ulcer. 2 Clinical Report - Nurses [facility] Emergency Department [address] [place] [address] Phone #: ext- [phone] 07/31/2020 05:13 [id number] Sex: F : 1980 Age: 40yFever.Constipation.GI Disease.GI [...] declined. Patient 3 Clinical Report - Nurses [facility] Emergency Department [address] [place] [address] Phone #: ext- [phone] 07/31/2020 05:13 Patient: NI DIAZ [facility]#: [id number] Sex: F : 1980 Age: 40y education [...] on. --05:20 4 Clinical Report - Nurses [facility] Emergency Department [address] [place] [address] Phone #: ext- [phone] 07/31/2020 05:13 ------ [...] -- 06:16 07/31/20Joelle Martinez R.N.Patient transported to [place] by wheelchair with echo tech. --06:31 07/31/20 Joelle Martinez R.N.Overall patient status- [...] Martinez R.N. 5 Clinical Report - Nurses [facility] Emergency Department [address] [place] [address] Phone #: ext- [phone] 07/31/2020 05:13 Patient: [...] 07/31/20 Nicolas Navarrete Clinical Report - Nurses [facility] Emergency Department [address] [place] [address] Phone #: ext- [phone] 07/31/2020 05:13 Patient: [...] Navarrete R.N. 7 Clinical Report - Nurses [facility] Emergency Department [address] [place] [address] Phone #: ext- [phone] 07/31/2020 05:13 [id number] Sex: F : 1980 Age: 40y09:25 07/31/20. [...] Navarrete R.N. 8 Clinical Report - Nurses [facility] Emergency Department [address] [place] [address] Phone #: ext- [phone] 07/31/2020 05:13 Patient: NI DIAZ Sex: F [...] 11:07/31/2020. Condition at departure: stable. Transferred to [facility]. Visit overview, summary of care (CCDA), [...] rce(s) Supporting Document(s) ID Date Data Source [id number] 07/31/2020 05:17:00 AM EDT [facility] 1 Clinical Report - Physicians/Mid Levels [facility] Emergency Department [address] [place] [address] Phone #: ext- [phone] 07/31/2020 05:13 Patient: [...] Tachycardia. 2 Clinical Report - Physicians/Mid Levels [facility] Emergency Department [address] [place] [address] Phone #: ext- [phone] 07/31/2020 05:13 Patient: NI DIAZ Sex: F : 1980 Age: 40y Hypoxia. Hypokalemia. Additional Surgeries: Bowel resection. Bowel Resection [2016]. Cholecystectomy. Gastric bypass. Gastric bypass reversal [08/2019]. Gastric Resection [2009]. GI bleed clipping. Hysterectomy. J-Tube placement. Life port removed. Lifeport [10/2017]. Portacath left chest. Nadege-en-Y gastrojejunostomy [2009]. Spinal fusion. Spinal fusion. Medicat ions: Ambien Oral 7.5, daily as needed, at bedtime, via J tube. Benadryl IV 50mg QDAY for nausea, 2x a day. Carafate Oral 1 gm, q4h, via J tube. Creon Oral (Capsule Delayed Release Particles [id number] unit) 1 capsule, 4x a day, J [...] and 3 Clinical Report - Physicians/Mid Levels [facility] Emergency Department [address] [place] [address] Phone #: ofh- [phone] 07/31/2020 05:13 Patient: NI DIAZ Sex: F [...] to it now. Has primarily gone to [facility] in past. Treatment plan discussed and agreed upon. [place] catheter accessed and IV saline started. IV Dilaudid and Phenergan 12.[address] abd/Pel without contrast.). 06:35 Jul 31 2020. Dilaudid given (1 mg IV). ED care transferred. Case discussed with with Dr Calderón. Assumed care. Brief hx: Will require transfer to [facility]. Tentative impression: Intractable left sided abdominal pain with nausea and vomiting. Expected disposition: transfer.CLINICAL IMPRESSION Acute left upper quadrant and left lower quadrant abdominal pain.(Electronically signed by Cheri Burris, Physician 07/31/2020 06:50) Time Seen: 07:11 07/31/2020. 4 Clinical Report - Physicians/Mid Levels [facility] Emergency Department [address] [place] [address] Phone #: ext- [phone] 07/31/2020 05:13 Patient: [...] MRSA. 5 Clinical Report - Physicians/Mid Levels [facility] Emergency Department [address] [place] [address] Phone #: ext- [phone] 07/31/2020 05:13 Patient: [...] results 6 Clinical Report - Physicians/Mid Levels [facility] Emergency Department [address] [place] [address] Phone #: ext- [phone] 07/31/2020 05:13 Patient: NI DIAZ Sex: F [...] Male GFR Interprentation 20-49 yrs >60 mL/min Nqvkkw38-74 yrs >56 mL/min Normal 60-69 yrs >49 mL/min Normal 70-79yrs>42 mL/min Normal 80 and above >35 mL/min Normal Female GFRInterpretation 20-39 yrs >60 mL/min Normal 40-49 yrs >58 mL/minNormal 50-59 yrs >51 mL/min Normal 60-69 yrs >45 mL/min Syvrov20- 79 yrs >39 mL/min Normal 80 and [...] 34.0) 7 Clinical Report - Physicians/Mid Levels [facility] Emergency Department [address] [place] [address] Phone #: ext- [phone] 07/31/2020 05:13 Patient: [...] DELANO COMMENT: Lipase: (LUISANA: 07/31/2020 06:08) ( [facility] 07/31/2020 06:51) Final results Test Result Flag Units (Reference) LIPASE 33 U/L (13 - 60)Lactic Acid: (LUISANA: 07/31/2020 06:08) ( [facility] 07/31/2020 06:44) Final results Test Result Flag Units (Reference) LACTIC ACID 2.0 MMOL/L (0.2 - 2.2)CT ABD PEL W/O Oral W/O IV Contrast: (LUISANA: 07/31/2020 05:44) ( [facility] 07/31/2020 07:42)Final results Exam CT ABD //T// PELV W/O ORAL W/[place] [address] ---------NAME--------- NUMBER SEX AGE ADMIT DISC. XRAY# F/C TYPE BASILIO Torres [id number] F 40 07/31/20 [id number] BB2 E/R DATE OF : 1980 M/R# [id number] #: [id number] TR-05 LOCATION: EMERGENCY DEPT TRANSCRIBED: 07/31/20 7:[address] ABD //T// PELV W/O ORAL W/[place] [address] COMPLETED:07/31/20 6:42 DLA [id number] Reason(s): Abdominal Pain 8 Clinical Report - Physicians/Mid Levels [facility] Emergency Department [address] [place] [address] Phone #: ext- [phone] 07/31/2020 05:13 [id number] Sex: F : 1980 Age: 40y PHYSICIAN: [...] orscarring. 9 Clinical Report - Physicians/Mid Levels [facility] Emergency Department [address] [place] [address] Phone #: ext- [phone] 07/31/2020 05:13 Patient: [...] I have attempted to transfer pt. to [facility], but all have had no available beds. [facility] has refused because they do not have GI services. I spoke with Dr. Simmons (Hospitalist) and the patient is well known at [facility] as a chronic pain patient. Dr. Simmons spoke with the surgeon on- call (Dr. Rasheed) and he said the patient is not surgical and he sees her at his office twice a week. He recommends discharging the patient and having her follow-up with Pain Management as outpatient. 09:58 Jul 31 2020. I spoke with hospitalist (Dr. Henning) at [facility] and he has accepted pt. for admission [...] explained to patient and spouse. Transferred to [facility]. Summary of care (CCDA) provided to transport team, EMS, patient, family and transfer facility via paper and digital media. 09:55 Jul 31 2020 Transfer to [facility] by ambulance as per Dr. Henning (Accepting Hospitalist). UTI (catheter associated) was not present prior to transfer. Pressure ulcer was not present prior to transfer. Vascular infection (catheter associated) was not 10 Clinical Report - Physicians/Mid Levels [facility] Emergency Department [address] [place] [address] Phone #: ext- [phone] 07/31/2020 05:13 [id number] Sex: F : 1980 Age: 40y present [...] rce(s) Supporting Document(s) ID Date Data Source [id number] 07/31/2020 10:00:00 AM EDT [facility] Name Value Range Interpretation Code Description Data Sumaya rce(s) Supporting Document(s) [facility] SOURCE Clean Catch [facility] ital COLOR yellow NORMAL: Yellow [facility] CLARITY clear NORMAL: Clear [facility] sp[facility] Specific gravity of Urine by Test strip 1.010 1.001 - 1.030 [facility] pH 7 5 - 9 [facility] Glucose [Mass/volume] in Urine by Test strip NORM NORMAL: Negat [facility] Bilirubin.total [Presence] in Urine by Test strip NEG NORMAL: Negative [facility] Ketones [Presence] in Urine by Test strip 15 NORMAL: Negative A [facility] Protein [Mass/volume] in Urine by Test strip NEG NORMAL: Negat [facility] Nitrite [Presence] in Urine by Test strip NEG NORMAL: Negative [facility] BLOOD NEG NORMAL: Negative [facility] Leukocyte esterase [Presence] in Urine by Test strip NEG DELANO L: Negative [facility] Urobilinogen [Mass/volume] in Urine by Test strip NOR less tenisha n 1.0 mg/dL [facility] MICROSCOPIC Not Indicate [facility] ID Date Data Source [id number] 07/31/2020 07:59:50 AM EDT [facility] Name Value Range Interpretation Code Description Data Sumaya rce(s) Supporting Document(s) Progress Note [facility] LOAMFy1zRlOFNhVb48/AHIrnXAVxp0PeTSfxULa3KGdmXJJwJ3BlXND1mK8gKAX1IRqPGwZyYeShBVSv lbm [file] AgICAgICAgICAgICAgICAgICAgICAgICAgICAgICAg ICAgICAgICAgICAgICAgICAgICAgICAgICAgICAgICAgICAgICANCiAgICAgICAgICAgICAgICAgICAg ICAgICAgICAgICAgICAgICAgICAgICAgICAgICAgICAgICAgICAgICAgICAgICAgICAgICAgICAgICAg ICAgICAgICAgICAgICAgICAgICANCiAgICAgICAgIC AgICAgICAgICAgICAgICAgICAgICAgICAgICAgICAgICAgICAgICAgICAgICAgICAgICAgICAgICAgIC AgICAgICAgICAgICAgICAgICAgICAgICAgICAgICANCiAgICAgICAgICAgICAgICAgICAgICAgICAgIC AgICAgICAgICAgICAgICAgICAgICAgICAgICAgICAg ICAgICAgICAgICAgICAgICAgICAgICAgICAgICAgICAgICAgICAgICANCiAgICAgICAgICAgICAgICAg ICAgICAgICAgICAgICAgICAgICAgICAgICAgICAgICAgICAgICAgICAgICAgICAgICAgICAgICAgICAg ICAgICAgICAgICAgICAgICAgICAgICANCiAgICAgIC AgICAgICAgICAgICAgICAgICAgICAgICAgICAgICAgICAgICAgICAgICAgICAgICAgICAgICAgICAgIC AgICAgICAgICAgICAgICAgICAgICAgICAgICAgICAgICANCiAgICAgICAgICAgICAgICAgICAgICAgIC AgICAgICAgICAgICAgICAgICAgICAgICAgICAgICAg ICAgICAgICAgICAgICAgICAgICAgICAgICAgICAgICAgICAgICAgICAgICANCiAgICAgICAgICAgICAg ICAgICAgICAgICAgICAgICAgICAgICAgICAgICAgICAgICAgICAgICAgICAgICAgICAgICAgICAgICAg ICAgICAgICAgICAgICAgICAgICAgICAgICANCiAgIC AgICAgICAgICAgICAgICAgICAgICAgICAgICAgICAgICAgICAgICAgICAgICAgICAgICAgICAgICAgIC AgICAgICAgICAgICAgICAgICAgICAgICAgICAgICAgICAgICANCiAgICAgICAgICAgICAgICAgICAgIC AgICAgICAgICAgICAgICAgICAgICAgICAgICAgICAg ICAgICAgICAgICAgICAgICAgICAgICAgICAgICAgICAgICAgICAgICAgICAgICANCjw/lYPmA4bdjGIm qaW6O8cwUw7YDe9KYR6nn9NjFKMsXBipxyXqVhzSXtSxNGJiEzyDZxu8YDmdAH0DcFAxB4FvQ8AnCAyy IZ3LGBMyVCVbjYKvSJRaJYPuLtD6ZINyRJmmHR1OkR KsCJqbXWCcJBYuGR9KSUTvY564wyDlGA0AWy3KWiDwFQ2ihc9TNAExYIQgXpoDGno2LMejLH0YjLJhxB LtLOKrRNQFNjFgI4uzf3RgXYIrDWXWXLfmBU8Db4ApvLWrNBe+Bg0MCC1yr5UjBRysNKKlDC2lmk9LCD eOXeSqI1RxsHkxGUQsd5moJGObBT5nyUYnLPB2GPtk xkFiYZQlfKJipsIgJGQPIcQorVFnRE4dRB5yGANjOJU1GxS9AHCUXP5XXCHcFABnaCNsSBKzWXRBQR0G JRgeWYP8ALQbliYpkAYaZXtfTH5YWWGfyqHgJGLfRROIXGl+Cb5UTN7ac5XvOUzjDxTkSS9bxi0YQUqL YgQxH5X9kKAuI9F4NXyiKo9QGTVqTQQxRYZbXERYXQ efOD0JPG9pdhL9CR1OwYMyHPLwPFIzmVXgTIu6K16seUOaOEphVR5GTUY+Savannah+Sv4LJCCoGAGvANDdRb IbJDQAPbElC3SuA7BMs0XcA8YoKZ95tFadrvAcLNtlBC1FIX2vJALmXSETHX2ReWXuvP2srkZtDEGeLN JWCnPrR30twIDeRVBnBJWjQTSfLo3GDFWhA5ZqsqLg pElbfuJdYLVzRVREAY1FLYrhlxCelDOlaMbeNE21rUdaLY1XYw9XBbOyZI5ezx7IxJSeCc5KUFGzJp5R QKNoMRMvJDVmAJP0DMTmBgKbXYgkSKCxKUGyAND6HHKqVFFeKF1KHrTtNLFlCPU0HwGsJOBiONEaly2S MDIeGCFiYmK0PVInKOKlIRAlXZtdZFCuVAPjCSS9KP UqPJMyRX4WKhUpFWXfUGH5UwRxDSDdNJXami7SALGqSPJoDrEhKBUyNNZhRDVtVHinNVNmPREnGGo6TC ElMQCqNV5OKbEmNRFgZOCsGWXsCMCrRAIczl2SMYAiGOPzWqM4RdZrXJYeIPSdHGhyCKIoRCD8TuYhJT IhMVOfFG3QPvMxAHOcZOH4UmDxHOWyUZGygz2HKIKi CXGnLDvrVKCbPQBkFWTsPQhkLNWuTSU8JHV6ROIrHRMeYU6CNmHaXVQpFGH1XNNiZCNcFDVows3BNHWa VWXjDtHvRcXrKOZqSKPeCZpgWFUbRJU3UmrsMOAaGHZlMT9FRwVqMVvcBOLEAop4FAxjB5o8AIUnEo1C W3Msk3MzVVMaPFYFRMaiIE0drqZyWBGrBb7BY7pBNb m1AWxjMUN7HLDmVSJeOxO5LIzzVgU3OCR0BwHzHtFaCK1uBBXbK8AfHelwBXH7JLFyHItuZHGuLcktPJ soYzX4XlJbEfRxQK3DQi7HWoC1UMT0dVUjIr4EYuCoUm4MIVKXM0OHAx== ID Date Data Source [id number] 07/31/2020 07:42:00 AM EDT [facility] [address] [place] [address] ---------NAME--------- NUMBER SEX AGE ADMIT DISC. XRAY# F/C TYPE BASILIO Torres [id number] F 40 07/31/20 [id number] BB2 E/R DATE OF : 1980 M/R# [id number] #: [id number] TR-05 LOCATION: EMERGENCY DEPT TRANSCRIBED: 07/31/20 7:[address] ABD //T// PELV W/O ORAL W/[place] [id number] COMPLETED:07/31/20 6:42 DLA [id number] Reason(s): Abdominal Pain PHYSICIAN: MICHELLE SIMMONS======= R [...] rce(s) Supporting Document(s) ID Date Data Source [id number] 08/05/2020 08:32:00 AM EDT [facility] 1157 Name Value Range Interpretation Code Description Data Smuaya rce(s) Supporting Document(s) Bacteria identified in Blood by Culture [facility] NO GROWTH AFTER 5 DAYS ID Date Data Source [id number] 08/06/2020 01:46:00 PM EDT [facility] Name Value Range Interpretation Code Description Data Sumaya rce(s) Supporting Document(s) CULTURE BLOOD [facility] spital _CULTURE BLOOD_ [place] [address] CLIA# [id number] SEE SCANNED REPORT{ PRELIM ID Date Data Source [id number] 07/31/2020 06:58:00 AM EDT [facility] Name Value Range Interpretation Code Description Data Sumaya rce(s) Supporting Document(s) Erythrocyte sedimentation rate by Westergren method 16 mm/hr 0 - 20 [facility] SED RATE REENTER 16 [facility] ID Date Data Source [id number] 07/31/2020 06:54:00 AM EDT [facility] Name Value Range Interpretation Code Description Data Sumaya rce(s) Supporting Document(s) CBC W/AUTOMATED DIFF [facility] COMPLETE BLOOD COUNT Leukocytes [#/volume] in Blood by Automated count 7.5 10^3/uL 4.2 - 1 1.0 [facility] Erythrocytes [#/volume] in Blood by Automated count 4.07 10^6/uL 4. 20 - 5.40 L [facility] Hemoglobin [Mass/volume] in Blood 9.6 g/dL 12.0 - 16.0 L [facility] Hematocrit [Volume Fraction] of Blood by Automated count 32.3 % 3 7.0 - 47.0 L [facility] Erythrocyte mean corpuscular volume [Entitic volume] by Auto mated count 79.4 fL 81.0 - 101 L [facility] Erythrocyte mean corpuscular hemoglobin [Entitic mass] by Automated count 23.6 pg 27.0 - 34.0 L [facility] Erythrocyte mean corpuscular hemoglobin concentration [Mass/volume] by Automated count 29.7 g/dL 31.0 - 36.0 L [facility] Erythrocyte distribution width [Ratio] by Automated count 17.9 % 11.5 - 14.5 H [facility] Platelets [#/volume] in Blood by Automated count 520 10^3/uL 150 - 45 0 H [facility] Platelet mean volume [Entitic volume] in Blood by Automated count 9.0 fL 7.4 - 10.4 [facility] Neutrophils/100 leukocytes in Blood by Automated count 83.8 % 37. 0 - 80.0 H [facility] Lymphocytes/100 leukocytes in Blood by Manual count 8.3 % 25.0 - 40.0 L [facility] Monocytes/100 leukocytes in Blood by Automated count 3.3 % 3.0 - 8.0 [facility] Eosinophils/100 leukocytes in Blood by Automated count 3.6 % 0.0 - 7.0 [facility] Basophils/100 leukocytes in Blood by Automated count 0.7 % 0.0 - 2.5 [facility] %IG 0.3 % 0.0 - 0.0 H [facility] %NRBC 0.0 % 0.0 - 0.0 [facility] al Neutrophils [#/volume] in Blood by Automated count 6.29 10^3/uL 2.00 - 6.90 [facility] Lymphocytes [#/volume] in Blood by Automated count 0.62 10^3/uL 0.60 - 3.40 [facility] Monocytes [#/volume] in Blood by Automated count 0.25 10^3/uL 0.00 - 0.90 [facility] Eosinophils [#/volume] in Blood by Automated count 0.27 10^3/uL 0.00 - 0.70 [facility] Basophils [#/volume] in Blood by Automated count 0.05 10^3/uL 0.00 - 0.20 [facility] #IG 0.02 10^3/uL 0.00 - 0.10 [facility]spital #NRBC 0.00 10^3/uL 0.00 - 0.00 [facility] ospital MANUAL DIFF SEE BELOW [facility] ital Segmented neutrophils/100 leukocytes in Blood by Manual count 91 % 37 - 80 H [facility] %LYMPH 6 % 25 - 40 L [facility] al %MONO 3 % 3 - 8 [facility] al RBC MORPH SEE BELOW [facility] al Anisocytosis [Presence] in Blood by Light microscopy 1+ DELANO L: NONE SEEN A [facility] Microcytes [Presence] in Blood by Light microscopy 1+ NORMAL: NONE SEEN A [facility] Poikilocytosis [Presence] in Blood by Light microscopy 1+ NOR MAL: NONE SEEN A [facility] HYPO 2+ NORMAL: NONE SEEN A [facility] { SICKLE CELL (NORMAL: NONE SEEN ) Ovalocytes [Presence] in Blood by Light microscopy 1+ NORMAL: NONE SEEN A [facility] Neutrophils.hypersegmented [Presence] in Blood by Light micr oscopy 1+ NORMAL: NONE SEEN A [facility] Platelet adequacy [Presence] in Blood by Light microscopy IN CREASED NORMAL: NORMAL A [facility] COMMENT: ID Date Data Source [id number] 07/31/2020 06:51:00 AM EDT [facility] Name Value Range Interpretation Code Description Data Usmaya rce(s) Supporting Document(s) C reactive protein [Mass/volume] in Serum or Plasma by High sensitivity method 0.88 MG/L 1.00 - 3.00 L [facility] CDC/S HS-CRP CUT-OFF: RELATIVE RISK: <1.0 mg/L Low 1.0 - 3.0 mg/L Average >3.0 mg/L High Optimally, the average of HS-CRP results repeated two weeks apart should be used for risk assessment. ID Date Data Source [id number] 07/31/2020 06:51:00 AM EDT [facility] Name Value Range Interpretation Code Description Data Sumaya rce(s) Supporting Document(s) Lipase [Enzymatic activity/volume] in Serum or Plasma 33 U/L 13 - 60 [facility] ID Date Data Source [id number] 07/31/2020 06:51:00 AM EDT [facility] Name Value Range Interpretation Code Description Data Sumaya rce(s) Supporting Document(s) COMPREHENSIVE METABOLIC PANEL [facility] COMPREHENSIVE METABOLIC PANEL Sodium [Moles/volume] in Serum or Plasma 136 mEq/L 134 - 153 [facility] Potassium [Moles/volume] in Serum or Plasma 4.2 mEq/L 3.6 - 5.0 [facility] Chloride [Moles/volume] in Serum or Plasma 101 mEq/L 98 - 107 [facility] Carbon dioxide, total [Moles/volume] in Serum or Plasma 23 MEQ/L 22 - 30 [facility] Glucose [Mass/volume] in Serum or Plasma 163 MG/DL 65 - 110 H [facility] BUN 11 MG/DL 7 - 21 [facility] Hospit al Creatinine [Mass/volume] in Serum or Plasma 0.6 MG/DL 0.7 - 1.5 L [facility] BUN/CREAT 18 8 - 27 [facility] al Protein [Mass/volume] in Serum or Plasma 6.8 G/DL 6.3 - 8.2 [facility] Albumin [Mass/volume] in Serum or Plasma 4.4 G/DL 3.9 - 5.0 [facility] Globulin [Mass/volume] in Serum by calculation 2.4 GM/DL 2.4 - 3.2 [facility] A/G RATIO 1.8 0.8 - 2.0 [facility] Calcium [Mass/volume] in Serum or Plasma 9.3 MG/DL 8.4 - 10.2 [facility] Bilirubin.total [Mass/volume] in Serum or Plasma <0.7 MG/DL 0.2 - 1.3 [facility] Alkaline phosphatase [Enzymatic activity/volume] in Serum or Plasma 180 U/L 38 - 126 H [facility] Aspartate aminotransferase [Enzymatic activity/volume] in Serum or Plasma 30 U/L 5 - 40 [facility] Alanine aminotransferase [Enzymatic activity/volume] in Seru m or Plasma 46 U/L 7 - 56 [facility] Anion gap 3 in Serum or Plasma 12.0 mmol/L 8.0 - 16.0 [facility] AGE 40 yrs [facility] NON-AA GFR >60 mL/min [facility] ital AFR AMER GFR >60 mL/min [facility] Ho spital Male GFR In terprentation [...] >32 mL/min Normal ID Date Data Source [id number] 07/31/2020 06:44:00 AM EDT [facility] Name Value Range Interpretation Code Description Data Sumaya rce(s) Supporting Document(s) Lactate [Moles/volume] in Serum or Plasma 2.0 MMOL/L 0.2 - 2.2 [facility] Hospital ID Date Data Source [id number] 08/06/2020 01:46:00 PM EDT [facility] Name Value Range Interpretation Code Description Data Sumaya rce(s) Supporting Document(s) CULTURE BLOOD [facility] Ho spital _CULTURE BLOOD_ TEST PERFORM ED AT [address] [address] CLIA# [id number] SEE SCANNED REPORT{ PRELIM ID Date Data Source [id number] 08/05/2020 08:34:00 AM EDT [facility] 1052 Name Value Range Interpretation Code Description Data Sumaya rce(s) Supporting Document(s) Bacteria identified in Blood by Culture [facility] NO GROWTH AFTER 5 DAYS ID Date Data Source [id number] 08/06/2020 01:46:00 PM EDT [facility] Value Range Interpretation Code Description Data Sumaya rce(s) Supporting Document(s) CULTURE BLOOD [facility] spital _CULTURE BLOOD_ TEST PERFORM ED AT [address] [address] CLIA# [id number] SEE SCANNED REPORT{ PRELIM ID Date Data Source [id number] 07/30/2020 04:31:00 PM EDT [facility] Value Range Interpretation Code Description Data Sumaya rce(s) Supporting Document(s) Phosphate [Mass/volume] in Serum or Plasma 4.0 MG/DL 2.5 - 4.5 [facility] ID Date Data Source [id number] 07/30/2020 04:31:00 PM EDT [facility] Name Value Range Interpretation Code Description Data Sumaya rce(s) Supporting Document(s) Magnesium [Mass/volume] in Serum or Plasma 2.0 MG/DL 1.7 - 2.2 [facility] ID Date Data Source [id number] 07/30/2020 04:31:00 PM EDT [facility] Name Value Range Interpretation Code Description Data Sumaya rce(s) Supporting Document(s) Lipase [Enzymatic activity/volume] in Serum or Plasma 28 U/L 13 - 60 [facility] ID Date Data Source [id number] 07/30/2020 04:31:00 PM EDT [facility] Name Value Range Interpretation Code Description Data Sumaya rce(s) Supporting Document(s) COMPREHENSIVE METABOLIC PANEL [facility] COMPREHENSIVE METABOLIC PANEL Sodium [Moles/volume] in Serum or Plasma 136 mEq/L 134 - 153 [facility] Potassium [Moles/volume] in Serum or Plasma 4.7 mEq/L 3.6 - 5.0 [facility] Chloride [Moles/volume] in Serum or Plasma 99 mEq/L 98 - 107 [facility] Carbon dioxide, total [Moles/volume] in Serum or Plasma 23 MEQ/L 22 - 30 [facility] Glucose [Mass/volume] in Serum or Plasma 160 MG/DL 65 - 110 H [facility] BUN 12 MG/DL 7 - 21 [facility] Creatinine [Mass/volume] in Serum or Plasma 0.6 MG/DL 0.7 - 1.5 L [facility] BUN/CREAT 20 8 - 27 [facility] al Protein [Mass/volume] in Serum or Plasma 7.4 G/DL 6.3 - 8.2 [facility] Albumin [Mass/volume] in Serum or Plasma 4.7 G/DL 3.9 - 5.0 [facility] Globulin [Mass/volume] in Serum by calculation 2.7 GM/DL 2.4 - 3.2 [facility] A/G RATIO 1.7 0.8 - 2.0 [facility] Calcium [Mass/volume] in Serum or Plasma 9.8 MG/DL 8.4 - 10.2 [facility] Bilirubin.total [Mass/volume] in Serum or Plasma <0.7 MG/DL 0.2 - 1.3 [facility] Alkaline phosphatase [Enzymatic activity/volume] in Serum or Plasma 223 U/L 38 - 126 H [facility] Aspartate aminotransferase [Enzymatic activity/volume] in Serum or Plasma 60 U/L 5 - 40 H [facility] Alanine aminotransferase [Enzymatic activity/volume] in Seru m or Plasma 67 U/L 7 - 56 H [facility] Anion gap 3 in Serum or Plasma 14.0 mmol/L 8.0 - 16.0 [facility] AGE 40 yrs [facility] Hospit al NON-AA GFR >60 mL/min [facility]osp ital AFR AMER GFR >60 mL/min [facility] spital Male GFR In terprentation [...] >32 mL/min Normal ID Date Data Source [id number] 07/30/2020 04:07:00 PM EDT [facility] Name Value Range Interpretation Code Description Data Sumaya rce(s) Supporting Document(s) CBC W/AUTOMATED DIFF [facility] COMPLETE BLOOD COUNT Leukocytes [#/volume] in Blood by Automated count 9.9 10^3/uL 4.2 - 1 1.0 [facility] Erythrocytes [#/volume] in Blood by Automated count 4.41 10^6/uL 4. 20 - 5.40 [facility] Hemoglobin [Mass/volume] in Blood 10.5 g/dL 12.0 - 16.0 L [facility] Hematocrit [Volume Fraction] of Blood by Automated count 35.0 % 3 7.0 - 47.0 L [facility] Erythrocyte mean corpuscular volume [Entitic volume] by Auto mated count 79.4 fL 81.0 - 101 L [facility] Erythrocyte mean corpuscular hemoglobin [Entitic mass] by Automated count 23.8 pg 27.0 - 34.0 L [facility] Erythrocyte mean corpuscular hemoglobin concentration [Mass/volume] by Automated count 30.0 g/dL 31.0 - 36.0 L [facility] Erythrocyte distribution width [Ratio] by Automated count 17.7 % 11.5 - 14.5 H [facility] Platelets [#/volume] in Blood by Automated count 656 10^3/uL 150 - 45 0 H [facility] Platelet mean volume [Entitic volume] in Blood by Automated count 9.1 fL 7.4 - 10.4 [facility] Neutrophils/100 leukocytes in Blood by Automated count 87.2 % 37. 0 - 80.0 H [facility] Lymphocytes/100 leukocytes in Blood by Manual count 7.2 % 25.0 - 40.0 L [facility] Monocytes/100 leukocytes in Blood by Automated count 2.3 % 3.0 - 8.0 L [facility] Eosinophils/100 leukocytes in Blood by Automated count 2.0 % 0.0 - 7.0 [facility] Basophils/100 leukocytes in Blood by Automated count 0.8 % 0.0 - 2.5 [facility] %IG 0.5 % 0.0 - 0.0 [facility] %NRBC 0.0 % 0.0 - 0.0 [facility] al Neutrophils [#/volume] in Blood by Automated count 8.61 10^3/uL 2.00 - 6.90 H [facility] Lymphocytes [#/volume] in Blood by Automated count 0.71 10^3/uL 0.60 - 3.40 [facility] Monocytes [#/volume] in Blood by Automated count 0.23 10^3/uL 0.00 - 0.90 [facility] Eosinophils [#/volume] in Blood by Automated count 0.20 10^3/uL 0.00 - 0.70 [facility] Basophils [#/volume] in Blood by Automated count 0.08 10^3/uL 0.00 - 0.20 [facility] #IG 0.05 10^3/uL 0.00 - 0.10 [facility] ospital #NRBC 0.00 10^3/uL 0.00 - 0.00 [facility] ospital MANUAL DIFF NOT INDICATED [facility] RBC MORPH NOT INDICATED [facility] spital ID Date Data Source [id number] 07/30/2020 04:07:00 PM EDT [facility] Name Value Range Interpretation Code Description Data Sumaya rce(s) Supporting Document(s) Prothrombin time (PT) 12.6 SECONDS 11.0 - 15.5 [facility] INR in Platelet poor plasma by Coagulation assay 0.93 0.93 - 1. 23 [facility] aPTT in Blood by Coagulation assay 26.8 SECONDS 24.8 - 36.7 [facility] \\BLDo\\INR INTERPRETATION\\BLDx\\ Therapeutic range for Coumadin and related oral anticoagulants. - International Normalized Ratio (INR): 2.0 - 3.0 for Venous Thrombosis, Pulmonary Embolus, Tissue heart valves, Acute NH Atrial Fibrillation, Valvular heart disease and recurrent Systemic Embolism. - International Normalized Ratio (INR): 2.5 - 3.5 for Mechanical Prosthetic valve. ID Date Data Source [id number] 07/30/2020 04:07:00 PM EDT [facility] Name Value Range Interpretation Code Description Data Sumaya rce(s) Supporting Document(s) Lactate [Moles/volume] in Serum or Plasma 3.0 MMOL/L 0.2 - 2.2 H [facility] ID Date Data Source [id number] 06/03/2020 04:15:00 PM EDT [facility] 1 OrderSheet [facility] Emergency Department [address] [place] [address] Phone #: ext- [phone] 06/03/2020 16:05 Patient: [...] Only Tawanda SIMMONS; Dixon RN(Oxygen?(No)) 2 OrderSheet [facility] Emergency Department [address] [place] [address] Phone #: qqo- [phone] 06/03/2020 16:05 Patient: NI DIAZ Sex: F [...] 18:40 Jeff SIMMONS; Dixon RN 3 OrderSheet [facility] Emergency Department [address] [place] [address] Phone #: ext- [phone] 06/03/2020 16:05 Patient: NI DIAZ Sex: F : 1980 Age: 40y Reason for ordering with alerts: Clinical consideration given -- 18:33 06/03/2020 Tawanda Sol PARocephin 19:35 06/03/2020 19:43 Jeff(1gm/50mL) IVPB Tawanda SIMMONS; Dixon [id number] mg withDextrose 50 mlspike bag (D5W) Reason [...] rce(s) Supporting Document(s) ID Date Data Source [id number] 06/03/2020 04:15:00 PM EDT [facility] 1 Medication Reconciliation Report [facility] Emergency Department [address] [place] [address] Phone #: ext- [phone] 06/03/2020 16:05 Patient: NI DIAZ Sex: F : 1980 Age: 40yWeight: 68.0 kgHeight/Length: 67 in.BMI: 23.5ALLERGIES: Levaquin, NSAID, Sulfa AntibioticsThe patient's Home Medications are listed below:CONTINUE TAKING THE FOLLOWING MEDICATIONS: Ambien Oral 7.5, daily, via J tube, prn,at bedtime Benadryl IV 50mg QDAY for nausea, 2x a day Carafate Oral 1 gm, q4h, via J tube Creon Oral (8914-0266 unit) 1 capsule, 4x a day, J tube Lovenox Subcutaneous (80 mg/0.8mL) 70 mg, 2x a day oxyCODONE HCl Oral 100/5 ml; 1ML, 4x a day, via J tube, prn Protonix Intravenous (40 mg), 2x a day Tylenol Oral, prnTHE FOLLOWING MEDICATIONS NEED TO BE RECONCILED: FLUoxetine HCl Oral 20 mg, daily, via J tube Ondansetron HCl Injection 8 mg I 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 APPARATUS GLASS 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, q8h, prnThe source(s) of the original Home Medication information:patientThe following Medications were given to the patient in the Emergency Department:NS [IV] IV Fluids bolus 0, then 75 mL/hr, administered: 06/03/2020 4:52:00 PM 2 Medication Reconciliation Report [facility] Emergency Department [address] [place] [address] Phone #: ext- [phone] 06/03/2020 16:05 Patient: [...] rce(s) Supporting Document(s) ID Date Data Source [id number] 06/03/2020 04:15:00 PM EDT [facility] 1 Medication Administration Record [facility] Emergency Department [address] [place] [address] Phone #: lus- [phone] 06/03/2020 16:05 Patient: NI DIAZ Sex: F [...] rightStart ROCEPHIN (1GM/50ML) [IVPB] Rocephin (1gm/50mL) IVPB 617763:43 06/03/2020 (CEFTRIAXONE SODIUM) mg with Dextrose 50 ml spike Zahra Metcalf RN Dose: 1 gm IVPB (D5W)---- Rate: 100 mL/hr over 30 minute(s)Stop Dispensed: 50 mL bag20:05 06/03/2020 Site: #1 Gavino Metcalf RN Name Value Range Interpretation Code Description Data Sumaya rce(s) Supporting Document(s) ID Date Data Source [id number] 06/03/2020 04:15:00 PM EDT [facility] 1 General Instructions [facility] Emergency Department [address] [place] [address] Phone #: ext- [phone] 06/03/2020 16:05 Patient: [...] tube.Creon Oral : Capsule Delayed Release Particles 8744-7225 unit, 1 capsule 4x a day, J [...] referral: evaluation and f/u with [facility] in [place] as scheduled for further evaluation of anemiawith [...] may be because of: 2 General Instructions [facility] Emergency Department [address] [place] [address] Phone #: ext- [phone] 06/03/2020 16:05 Patient: NI DIAZ Sex: F [...] blood or passing red or black-colored stool [phone] [employer] [place] [address]. All rights reserved. This information is not intended as asubstitute for professional medical care. Always follow your healthcare professional's instructions.Bladder Infection, Female (Adult) 3 General Instructions [facility] Emergency Department [address] [place] [address] Phone #: ext- [phone] 06/03/2020 16:05 Patient: [...] out Blood in urine 4 General Instructions [facility] Emergency Department [address] [place] [address] Phone #: ext- [phone] 06/03/2020 16:05 Patient: [...] more serious kidney infection. 5 General Instructions [facility] Emergency Department [address] [place] [address] Phone #: ext- [phone] 06/03/2020 16:05 Patient: [...] find out the results. 6 General Instructions [facility] Emergency Department [address] [place] [address] Phone #: ext- [phone] 06/03/2020 16:05 [id number] Sex: F : 1980 Age: 40yIf X-rays were done, you will be told if the results will affect your treatment.Call 251Spkg 084 if any of the following occur: Trouble [...] swelling in the outer vaginal area (labia) 9725-8375 [employer] [address] [place] [address], [place] [address]. All rights reserved. This information is not intended as asubstitute for professional medical care. Always follow your healthcare professional's instructions. You have been given the following additional information: Anemia, Type Not Specified (Adult) Bladder Infection, Female (Adult)(Electronically signed by TROY Andres 06/04/2020 10:17) Name Value Range Interpretation Code Description Data Sumaya rce(s) Supporting Document(s) ID Date Data Source [id number] 06/03/2020 04:15:00 PM EDT [facility] 1 Clinical Report - Nurses [facility] Emergency Department [address] [place] [address] Phone #: ext- [phone] 06/03/2020 16:05 Patient: [...] patient has had weakness and difficulty breathing.Treatment BOTANY TECHNICIAN:None. --16:13 06/03/20 Wanda Berger R.N.16:08 06/03/20. BP: [...] tube. Creon Oral (Capsule Delayed Release Particles 8825-6634 unit) 1 capsule, 4x a day, J [...] hysterectomy. Denies 2 Clinical Report - Nurses [facility] Emergency Department [address] [place] [address] Phone #: ext- [phone] 06/03/2020 16:05 [id number] Sex: F : 1980 Age: 40y current [...] catheter to 3 Clinical Report - Nurses [facility] Emergency Department [address] [place] [address] Phone #: ext- [phone] 06/03/2020 16:05 Patient: [...] saturation: 97%. --18:19 06/03/20 Shobha Neil ER Fmzg443:39 06/03/2020 Morphine IVP 2 mg given over 2 minute(s) via site #1. Allergies verified and confirmed 5rights. IV patency established. IV site checked: no pain, redness, or swelling. IV flushed thoroughly pre- 4 Clinical Report - Nurses [facility] Emergency Department [address] [place] [address] Phone #: ext- [phone] 06/03/2020 16:05 Patient: NI DIAZ Sex: F [...] Patient verbalized understanding. Written instructions provided in Macedonian. 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 She was discharged home and accompanied by spouse. She left ambulatory and via private vehicle. Spouse driving. --20:06/03/20 Jeff Metcalf RN 20:21 06/03/20. Pain level now: 03/30. --20:21 06/03/20 Jeff Metcalf RN.Locked/Released at 06/03/2020 20:21 by Jeff Metcalf RN Name Value Range Interpretation Code Description Data Sumaya rce(s) Supporting Document(s) ID Date Data Source [id number] 06/03/2020 04:15:00 PM EDT [facility] 1 Clinical Report - Physicians/Mid Levels [facility] Emergency Department [address] [place] [address] Phone #: ext- [phone] 06/03/2020 16:05 Patient: [...] Has had majority of bowel surgeries at [facility], is TPN dependent, port L chest. Hx [...] Constipation. 2 Clinical Report - Physicians/Mid Levels [facility] Emergency Department [address] [place] [address] Phone #: ext- [phone] 06/03/2020 16:05 Patient: NI DIAZ [facility]#: [id number] Sex: F : 1980 Age: 40yAnemia.Back Pain.Sepsis [...] J tube.Creon Oral (Capsule Delayed Release Particles 5120-4120 unit) 1 capsule, 4x a day, J tube.FLUoxetine HCl Oral 20 mg, daily, via J tube. 3 Clinical Report - Physicians/Mid Levels [facility] Emergency Department [address] [place] [address] Phone #: ext- [phone] 06/03/2020 16:05 Patient: [...] the 4 Clinical Report - Physicians/Mid Levels [facility] Emergency Department [address] [place] [address] Phone #: ext- [phone] 06/03/2020 16:05 [id number] Sex: F : 1980 Age: 40ymedical decision making process.CT CTA CHEST NON- CORONARY W CON INC PP: (LUISANA: 06/03/2020 17:01) ( MsgRcvd 06/03/2020 19:15) InProgressCT CTA CHEST NON-CORONARY W CON INC PPReason(s): tachycardia, SOB, prior hx PETRANSPORTATION: S IV? IV?(Yes) O2? Oxygen?(No) RoCT Abd PEL W/ IV Contrast Only: (LUISANA: 06/03/2020 16:48) ( [facility] 06/03/2020 19:15) In ProgressCT ABDReason(s): L sided abd pain, tachycardia, multiple bowel surgeriesTRANSPORTATION: S IV? IV?(Yes) O2? Oxygen?(No) RoOccult Blood Stool Diagnostic 1 slide: (LUISANA: 06/03/2020 15:30) ( [facility] 06/03/2020 18:24)Final results Test Result Flag Units (Reference) OCCULT BLOOD NEGATIVE (NORMAL: NEGAT OCCULT BLOOD REENTER NEGATIVE (NORMAL: NEGAT { HEMOCCULT LOT # [id number] ){ LOT EXP [id number] ){ PROCEDURAL CONTROL POS/NEG VALID)D-Dimer: (LUISANA: 06/03/2020 16:34) ( [facility] 06/03/2020 17:56) Final results Test Result Flag Units (Reference) D-DIMER QUANT <0.27 ug/mL (0.27 - 0.50)BNP: (LUISANA: 06/03/2020 16:34) ( [facility] 06/03/2020 17:12) Final results Test Result Flag Units (Reference) BNP 15 PG/ML (0 - 125)CBC w Diff: (LUISANA: 06/03/2020 16:34) ( [facility] 06/03/2020 16:53) Final results Test Result Flag [...] 6.90) 5 Clinical Report - Physicians/Mid Levels [facility] Emergency Department [address] [place] [address] Phone #: ext- [phone] 06/03/2020 16:05 Patient: [...] Male GFR Interprentation 20-49 yrs >60 mL/min Yayocg99-52 yrs >56 mL/min Normal 60-69 yrs >49 mL/min Normal 70-79yrs>42 mL/min Normal 80 and above >35 mL/min Normal Female GFRInterpretation 20-39 yrs >60 mL/min Normal 40-49 yrs >58 mL/minNormal 50-59 yrs >51 mL/min Normal 60-69 yrs >45 mL/min Vtpdnp30-23 yrs >39 mL/min Normal 80 and above >32 mL/min NormalLactic Acid: (LUISANA: 06/03/2020 16:34) ( [facility] Final results Test Result Flag Units (Reference) LACTIC ACID 2.4 H MMOL/L (0.2 - 2.2)PT/PTT: (LUISANA: 06/03/2020 16:34) ( Mog[facility] 06/03/2020 17:31) Final results Test Result Flag Units (Reference) PROTIME 12.4 SECONDS (11.0 - 15.5) INR 0.91 L (0.93 - 1.23) PTT 25.8 SECONDS (24.8 - 36.7) \\BLDo\\INR INTERPRETATION\\BLDx\\ Therapeutic range for Coumadin andrelated oral anticoagulants. -International Normalized Ratio (INR): 2.0 - 3.0 for VenousThrombosis, Pulmonary Embolus, Tissue heart valves, Acute NH Atrial Fibrillation, Valvular heart diseaseand recurrent Systemic Embolism. -International Normalized Ratio (INR): 2.5 - 3.5 forMechanical Prosthetic valve. 6 Clinical Report - Physicians/Mid Levels [facility] Emergency Department [address] [place] [address] Phone #: ext- [phone] 06/03/2020 16:05 Patient: NI DIAZ Sex: F : 1980 Age: 40y Troponin-T: (LUISANA: 06/03/2020 16:34) ( [facility] 06/03/2020 17:00) Final results Test Result Flag Units (Reference) TROPONIN T <0.01 NG/ML (0.00 - 0.10) TROPONIN T0.1 ng/ml Recommended as the clinical threshold value forTroponin T. Urinalysis: (LUISANA: 06/03/2020 18:20) ( [facility] 19:02) Final results Test Result Flag [...] clinical 7 Clinical Report - Physicians/Mid Levels [facility] Emergency Department [address] [place] [address] Phone #: ext- [phone] 06/03/2020 16:05 Patient: [...] Creon Oral : Capsule Delayed Release Particles 7784-2376 unit, 1 capsule 4x a day, J [...] referral: evaluation and f/u with [facility] in [place] as scheduled for further evaluation of anemia [...] rce(s) Supporting Document(s) ID Date Data Source [id number] 06/03/2020 04:15:00 PM EDT [facility] VisitID: [id number] Date: 10:04Lab results reviewed by Dr Fong. Urine culture sensitvity results show Proteus mirabilis/rojlcoo15,000-25,000 cfu/ml Patient was given Rocephin in ED. Cell count low no further treatment required.(Electronically signed by Zenaida Riggins RN - 06/09/2020 10:04) Name Value Range Interpretation Code Description Data Sumaya rce(s) Supporting Document(s) ID Date Data Source [id number] 06/06/2020 08:09:00 PM EDT [facility] [address] [place] [address] PHONE: [phone] FAX: [phone] Name ..............: BASILIO DAN LAcct Number ......................: [id number] ROOM. ............: TR-03 Number ............................: [id number] Stay type.........: E/R Discharge Date...............:06/03/20 Admit Date .....: 06/03/20 Admit Phys .............................[facility] Date of ..: 1980 Family Phys ...........................: MITA ROCHE Phone..............: [phone] Age.................................:40 Film# ...............:[id number] Sex.................................:F Unsigned transcriptions are preliminary reports and do [place] [id number] COMPLETE:06/04/20 08:[address] [facility] [address] Please See Scanned Results. Name Value Range Interpretation Code Description Data Sumaya rce(s) Supporting Document(s) ID Date Data Source [id number] 06/06/2020 02:08:00 PM EDT [facility] [address] [place] [address] PHONE: [phone] FAX: [phone] Name .................. : BASILIO Torres Acct Number.................. : [id number] ROOM. ................. : [facility] MR Number ................... : [id number] Stay type ............. : E/R Discharge Date......... ... : 06/03/20 Admit Date ......... : 06/03/20 Admit Phys .................... : DESIREE CESPEDES Date of ....... : 1980 Family Phys ................... : [facility] Phone .................. : [phone] Age ................................ : 40 Film# .................. .:[id number] Sex ................................. : F Unsigned transcriptions are preliminary reports and do not represent a medical or legal document CT ABD & PELVIS W/ IV ONLY 83465 COMPLETE:06/03/20 19:15 RLB [id number] Reason(s): L sided abd pain, t achycardia, [...] dose: 750.2 mGycm Page 1 of 2 [place] [address] PHONE: [phone] FAX: [phone] Name .................. : BASILIO DAN Melissa Acct Number.................. : [id number] ROOM. ................. : TR-03 Number ................... : [id number] Stay type ............. : E/R Discharge Date......... ... : 06/03/20 Admit Date ......... : 06/03/20 Admit Phys .................... : DESIREE CESPEDES Date of ....... : 1980 Family Phys ................... : MITA ROCHE Phone .................. : [phone] Age ................................ : 40 Film# .................. .:[id number] Sex ................................. : F Unsigned transcriptions are preliminary reports and do not represent a medical or legal document CT ABD & PELVIS W/ IV ONLY 02700 COMPLETE:06/03/20 19:15 RLB [id number] Reason(s): L sided abd pain, tachycardia, multiple [...] rce(s) Supporting Document(s) ID Date Data Source [id number] 06/06/2020 02:08:00 [place] [address] PHONE: [phone] FAX: [phone] Name .................. : BASILIO Torres Acct Number.................. : [id number] ROOM. ................. : TR-03 MR Number ................... : [id number] Stay type ............. : E/R Discharge Date......... ... : 06/03/20 Admit Date ......... : 06/03/20 Admit Phys .................... : LENOREJEANE CESPEDES Date of ....... : 1980 Family Phys ................... : MITA ROCHE Phone .................. : [phone] Age ................................ : 40 Film# .................. .:[id number] Sex ................................. : F Unsigned transcriptions are preliminary reports and do not represent a medical or legal document CT CTA CHEST NON-CORONARY W C 48468 COMPLETE:06/03/20 19:15 RLB 76685 Reason(s): tachycardia, SOB, prior hx PE CTA [...] Method of administration: Intravenous [address] [place] [address] [place] [address] PHONE: [phone] FAX: [phone] Name .................. : BASILIO Torres Acct Number.................. : [id number] ROOM. ................. : [facility] MR Number ................... : [id number] Stay type ............. : E/R Discharge Date......... ... : 06/03/20 Admit Date ......... : 06/03/20 Admit Phys .................... : DESIREE CESPEDES Date of ....... : 1980 Family Phys ................... : MITA ROCHE Phone .................. : [phone] Age ................................ : 40 Film# .................. .:[id number] Sex ................................. : F Unsigned transcriptions are preliminary reports and do not represent a medical or legal document CT CTA CHEST NON-CORONARY W C 67597 COMPLETE:06/03/20 19:15 RLB 53641 Reason(s): tachycardia, SOB, prior hx PE Electronically [...] rce(s) Supporting Document(s) ID Date Data Source [id number] 06/09/2020 10:19:00 AM EDT [facility] Name Value Range Interpretation Code Description Data Sumaya rce(s) Supporting Document(s) CULTURE URINE [facility] Ho spital CORRECTE D REPORT _CULTURE URINE_$$655010$$582487$$164823$$254712$$176528$$766721$$014355$$120845$$753595$$ 768251$$187023$$126575$$59278 5$$476637$$004466$$219376$$046341$$211244$$914947$$281752$$809927$$221082$$42510 7$$662661$$308238$$919219 -- Continued on next page --Patient: BASILIO Torres Order: [id number] Page 2Culture: CULTURE URINE Status: Final ====$$[id number] -- Continued on next page --Patient: BASILIO Torres Order: [id number] Page 2Culture: CULTURE URINE Status: Prel im = -- Continued on next page --Patient: BASILIO Torres Order: [id number] Page 2Culture: CULTURE URINE Status: Prelim =====$$[id number]$$[id number] DATE/TIME: 06/09/2020 10:07Culture: CULTURE URINE Status: FinalIsolate [...] on 06/07/2020 06:05 ET Proteus mirabilis/penneriUrine Culture,Comprehensive: M7Aqqsvya mirabilis/penneri Flag: AIsolate 2 Escherichia coli Flag: [...] on next page --Patient: BASILIO Torres Order: [id number] Page 3Culture: CULTURE URINE Status: Final===== Gram negative rodsEscherichia coli Flag: APatient: BASILIO Torres Order: [id number] Page 4Culture: CULTURE URINE Status: Final ====ISOLATE [...] Trimethoprim/Sulfa S S P1 Test performed by: [facility] ZAMARRIPA #: [id number] [address] [place] [address] [id number] [facility] [id number] Director : Pascual Ceballos MD NPI #:Credit Reporter : 06/07/20.1830.XMT.SENT REF FOLLOWING RESULTS REPORTED IN ERROR REPORTED DATE/TIME: 06/07/2020 06:06 CORRECT FINAL REPORT [facility] REPORTED DATE/TIME: 06/08/2020 15:06Isol [...] S S . . . . . .88703-2Fokfbdnued S S . . . . . .267-5Levofloxacin S S . . . . . .65930-6Ofogtojrd S S . . . . . .6652-2Nitrofurantoin R R . . . . . .363- 2Piperacillin/Tazobactam S S . . . . . .412-7Tetracycline R R . . . . . .496-0Tobramycin S S . . . . . .508-2Trimethoprim/Sulfa S S . . . . . .516-5 ID Date Data Source [id number] 06/03/2020 07:02:00 PM EDT [facility] Name Value Range Interpretation Code Description Data Sumaya rce(s) Supporting Document(s) [facility] SOURCE R [facility] COLOR yellow NORMAL: Yellow [facility] CLARITY hazy NORMAL: Clear [facility] Specific gravity of Urine by Test strip 1.010 1.001 - 1.030 [facility] pH 6.5 5 - 9 [facility] Glucose [Mass/volume] in Urine by Test strip NORM NORMAL: Negat lucia [facility] Bilirubin.total [Presence] in Urine by Test strip NEG NORMAL: Negative [facility] Ketones [Presence] in Urine by Test strip NEG NORMAL: Negative [facility] Protein [Mass/volume] in Urine by Test strip 15 NORMAL: Negat lucia [facility] Nitrite [Presence] in Urine by Test strip NEG NORMAL: Negative [facility] BLOOD 10 NORMAL: Negative [facility] Leukocyte esterase [Presence] in Urine by Test strip 25 DELANO L: Negative [facility] Urobilinogen [Mass/volume] in Urine by Test strip NOR less tenisha n 1.0 mg/dL [facility] MICROSCOPIC See Below [facility] ital WBC 0 - 1 NORMAL: NONE SEEN [facility] Erythrocytes [#/volume] in Urine by Test strip 0 - 1 NORMAL: NON E SEEN [facility] EPITHELIAL MODERATE NORMAL: NONE SEEN [facility] Bacteria [Presence] in Urine sediment by Light microscopy Tr nick NORMAL: NONE SEEN [facility] ID Date Data Source [id number] 06/03/2020 06:02:00 PM EDT [facility] Name Value Range Interpretation Code Description Data Sumaya rce(s) Supporting Document(s) ABO group [Type] in Blood O [facility] Rh [Type] in Blood NEGATIVE [facility] AB SCREEN NEGATIVE NORMAL: NEGATIVE [facility] { ABO/RH REENTER O NEGATIVE{ AB SCREEN RE-ENTER NEGATIVE ID Date Data Source [id number] 06/03/2020 05:56:00 PM EDT [facility] Name Value Range Interpretation Code Description Data Sumaya rce(s) Supporting Document(s) Fibrin D-dimer FEU [Mass/volume] in Platelet poor plasma <0. 27 ug/mL 0.27 - 0.50 [facility] ID Date Data Source [id number] 06/03/2020 05:31:00 PM EDT [facility] Name Value Range Interpretation Code Description Data Sumaya rce(s) Supporting Document(s) Prothrombin time (PT) 12.4 SECONDS 11.0 - 15.5 [facility] INR in Platelet poor plasma by Coagulation assay 0.91 0.93 - 1. 23 L [facility] aPTT in Blood by Coagulation assay 25.8 SECONDS 24.8 - 36.7 [facility] \\BLDo\\INR INTERPRETATION\\BLDx\\ Therapeutic range for Coumadin and related oral anticoagulants. - International Normalized Ratio (INR): 2.0 - 3.0 for Venous Thrombosis, Pulmonary Embolus, Tissue heart valves, Acute NH Atrial Fibrillation, Valvular heart disease and recurrent Systemic Embolism. - International Normalized Ratio (INR): 2.5 - 3.5 for Mechanical Prosthetic valve. ID Date Data Source [id number] 06/03/2020 05:12:00 PM EDT [facility] Name Value Range Interpretation Code Description Data Sumaya rce(s) Supporting Document(s) BNP 15 PG/ML 0 - 125 [facility] al ID Date Data Source [id number] 06/03/2020 05:00:00 PM EDT [facility] Name Value Range Interpretation Code Description Data Sumaya rce(s) Supporting Document(s) TROPONIN T <0.01 NG/ML 0.00 - 0.10 [facility] ospital TROPONIN T0.1 ng/ml Recommended as the c linical threshold value forTroponin T. ID Date Data Source [id number] 06/03/2020 05:00:00 PM EDT [facility] Name Value Range Interpretation Code Description Data Sumaya rce(s) Supporting Document(s) COMPREHENSIVE METABOLIC PANEL [facility] COMPREHENSIVE METABOLIC PANEL Sodium [Moles/volume] in Serum or Plasma 139 mEq/L 134 - 153 [facility] Potassium [Moles/volume] in Serum or Plasma 3.6 mEq/L 3.6 - 5.0 [facility] Chloride [Moles/volume] in Serum or Plasma 104 mEq/L 98 - 107 [facility] Carbon dioxide, total [Moles/volume] in Serum or Plasma 22 MEQ/L 22 - 30 [facility] Glucose [Mass/volume] in Serum or Plasma 127 MG/DL 65 - 110 H [facility] BUN 9 MG/DL 7 - 21 [facility] Creatinine [Mass/volume] in Serum or Plasma 0.7 MG/DL 0.7 - 1.5 [facility] BUN/CREAT 13 8 - 27 [facility] Protein [Mass/volume] in Serum or Plasma 6.5 G/DL 6.3 - 8.2 [facility] Albumin [Mass/volume] in Serum or Plasma 4.3 G/DL 3.9 - 5.0 [facility] Globulin [Mass/volume] in Serum by calculation 2.2 GM/DL 2.4 - 3.2 L [facility] A/G RATIO 2.0 0.8 - 2.0 [facility] Calcium [Mass/volume] in Serum or Plasma 9.2 MG/DL 8.4 - 10.2 [facility] Bilirubin.total [Mass/volume] in Serum or Plasma <0.7 MG/DL 0.2 - 1.3 [facility] Alkaline phosphatase [Enzymatic activity/volume] in Serum or Plasma 81 U/L 38 - 126 [facility] Aspartate aminotransferase [Enzymatic activity/volume] in Serum or Plasma 12 U/L 5 - 40 [facility] Alanine aminotransferase [Enzymatic activity/volume] in Seru m or Plasma 14 U/L 7 - 56 [facility] Anion gap 3 in Serum or Plasma 13.0 mmol/L 8.0 - 16.0 [facility] AGE 40 yrs [facility] al NON-AA GFR >60 mL/min [facility] ital AFR AMER GFR >60 mL/min [facility] Ho spital Male GFR In terprentation [...] >32 mL/min Normal ID Date Data Source [id number] 06/03/2020 04:53:00 PM EDT [facility] Name Value Range Interpretation Code Description Data Sumaya rce(s) Supporting Document(s) CBC W/AUTOMATED DIFF [facility] COMPLETE BLOOD COUNT Leukocytes [#/volume] in Blood by Automated count 9.0 10^3/uL 4.2 - 1 1.0 [facility] Erythrocytes [#/volume] in Blood by Automated count 3.46 10^6/uL 4. 20 - 5.40 L [facility] Hemoglobin [Mass/volume] in Blood 9.1 g/dL 12.0 - 16.0 L [facility] Hematocrit [Volume Fraction] of Blood by Automated count 28.3 % 3 7.0 - 47.0 L [facility] Erythrocyte mean corpuscular volume [Entitic volume] by Auto mated count 81.8 fL 81.0 - 101 [facility] Erythrocyte mean corpuscular hemoglobin [Entitic mass] by Automated count 26.3 pg 27.0 - 34.0 L [facility] Erythrocyte mean corpuscular hemoglobin concentration [Mass/volume] by Automated count 32.2 g/dL 31.0 - 36.0 [facility] Erythrocyte distribution width [Ratio] by Automated count 15.4 % 11.5 - 14.5 H [facility] Platelets [#/volume] in Blood by Automated count 465 10^3/uL 150 - 45 0 H [facility] Platelet mean volume [Entitic volume] in Blood by Automated count 9.0 fL 7.4 - 10.4 [facility] Neutrophils/100 leukocytes in Blood by Automated count 66.4 % 37. 0 - 80.0 [facility] Lymphocytes/100 leukocytes in Blood by Manual count 22.3 % 25.0 - 40.0 L [facility] Monocytes/100 leukocytes in Blood by Automated count 7.9 % 3.0 - 8.0 [facility] Eosinophils/100 leukocytes in Blood by Automated count 2.4 % 0.0 - 7.0 [facility] Basophils/100 leukocytes in Blood by Automated count 0.6 % 0.0 - 2.5 [facility] %IG 0.4 % 0.0 - 0.0 [facility] %NRBC 0.0 % 0.0 - 0.0 [facility] al Neutrophils [#/volume] in Blood by Automated count 5.98 10^3/uL 2.00 - 6.90 [facility] Lymphocytes [#/volume] in Blood by Automated count 2.01 10^3/uL 0.60 - 3.40 [facility] Monocytes [#/volume] in Blood by Automated count 0.71 10^3/uL 0.00 - 0.90 [facility] Eosinophils [#/volume] in Blood by Automated count 0.22 10^3/uL 0.00 - 0.70 [facility] Basophils [#/volume] in Blood by Automated count 0.05 10^3/uL 0.00 - 0.20 [facility] #IG 0.04 10^3/uL 0.00 - 0.10 [facility] ospital #NRBC 0.00 10^3/uL 0.00 - 0.00 [facility] ospital MANUAL DIFF NOT INDICATED [facility] RBC MORPH NOT INDICATED [facility] Ho spital ID Date Data Source [id number] 06/03/2020 04:45:00 PM EDT [facility] Name Value Range Interpretation Code Description Data Sumaya rce(s) Supporting Document(s) Lactate [Moles/volume] in Serum or Plasma 2.4 MMOL/L 0.2 - 2.2 H [facility] ID Date Data Source [id number] 06/03/2020 06:24:00 PM EDT [facility] Name Value Range Interpretation Code Description Data Sumaya rce(s) Supporting Document(s) OCCULT BLOOD NEGATIVE NORMAL: NEGATIVE [facility] OCCULT BLOOD REENTER NEGATIVE NORMAL: NEGATIVE [facility] { HEMOCCULT LOT # [id number] ){ LOT EXP DATE 07-20-21 ){ PROCEDURAL CONTROL POS/NEG VALID ) ID Date Data Source [id number] 06/02/2020 01:06:00 PM EDT [facility] [address] [place] [address] PHONE: [phone] FAX: [phone] Name .................. : BASILIO Torres Acct Number.................. : [id number] ROOM. ................. : TR-07 Number ................... : [id number] Stay type ............. : E/R Discharge Date......... ... : Admit Date ......... : 05/31/20 Admit Phys .................... : DAREK Date of ....... : 1980 Family Phys ................... : MITA ROCHE Phone .................. : [phone] Age ................................ : 40 Film# .................. .:[id number] Sex ................................. : F Unsigned transcriptions are preliminary reports and do not represent a medical or legal document CHEST PORTABLE [id number] COMPLETE:05/31/20 21:34 RLB [id number] Reason(s): Shortness of Breath PORTABLE CHEST X-RAY: INDICATION: Shortness of breath. FINDINGS: There is a right IJ tunnel catheter with the tip in the SVC. The lungs are clear. The cardiac silhouette is normal in size and contour. No acute osseous abnormality. IMPRESSION: No acute pulmonary process. Electronically Reviewed and Signed By Eleuterio Dukes M.D. , 06/02/20 13:06, HREA Transcribe Initials: BECK , Transcribe Date: 05/31/20 21:44, Dictation Date: Copy for: DAREK LUCAS via fax Copy for: EMERGENCY DEPT via mode Copy for: 710 MED REC DISCHARGED Page 1 of 1 Name Value Range Interpretation Code Description Data Sumaya rce(s) Supporting Document(s) ID Date Data Source [id number] 06/01/2020 08:14:00 PM EDT [facility] [address] [place] [address] PHONE: [phone] FAX: [phone] Name ..............: BASILIO Jones Number ......................: [id number] ROOM. ............: TR-07 Number ............................: [id number] Stay type.........: E/R Discharge Date...............:05/31/20 Admit Date .....: 05/31/20 Admit Phys .............................: ........................[facility] Date of ..: 1980 Family Phys ...........................: MITA KA Phone..............: [phone] Age............. ....................:40 Film# ...............:[id number] Sex.................................:F Unsigned transcriptions are preliminary reports and [place] [id number] COMPLETE:06/01/20 03:28 T [id number] Please See Scanned Results. Name Value Range Interpretation Code Description Data Sumaya rce(s) Supporting Document(s) ID Date Data Source [id number] 05/31/2020 07:27:00 PM EDT [facility] 1 OrderSheet [facility] Emergency Department [address] [place] [address] Phone #: ext- [phone] 05/31/2020 19:25 Patient: NI DIAZ Sex: F : 1980 Age: 40yWEIGHT:68.0 kg (S) HEIGHT:67 inches (S) BMI:23.5ALLERGIES: Levaquin, NSAID, Sulfa AntibioticsCHIEF COMPLAINT: palpitationsDIAGNOSIS: Sinus tachycardiaLAB ORDERSOrder Description Priority Entered Acknowledged InitialedBlood Culture STAT 20:01 05/31/2020 20:07 Akqwjdif26d X2 ([facility] Tech, Ramakrishna ER20:01 05/31/2020) PA; Ttkc8Ftwnm Culture STAT 20:01 05/31/2020 21:03 Ggeolb04k X2 (Reza Metcalf RN20:11 05/31/2020) PA;CBC w Diff STAT 20:01 05/31/2020 20:07 [facility] Tech, Ramakrishna ER PA; Ggos0ZTG STAT 20:01 05/31/2020 20:07 [facility] Tech, Ramakrishna ER PA; Stbf7AA/PTT STAT 20:01 05/31/2020 20:07 [facility] Tech, Ramakrishna IGNACIO PA; Pmgq3Nmcpld Acid STAT 20:01 05/31/2020 20:07 [facility] Tech, Ramakrishna ER PA; Txhl9Thfyfkacxm (Clean STAT 20:01 05/31/2020 20:32 Sindy Metcalf RN PA;Troponin-T STAT 20:01 05/31/2020 20:07 [facility] Tech, Ramakrishna ER PA; Urnx2C-Rcylv STAT 20:16 05/31/2020 20:23 Jeff Metcalf RN PA;TSH STAT 22:04 05/31/2020 22:23 Jeff Metcalf RN PA; 2 OrderSheet [facility] Emergency Department [address] [place] [address] Phone #: ext- [phone] 05/31/2020 19:25 Patient: NI DIAZ Sex: F : 1980 Age: 40yDIAGNOSTIC STUDY ORDERSOrder Description Priority Entered Acknowledged InitialedChest Portable 1 STAT 20:01 05/31/2020 20:11 Darshana Metcalf RN(Oxygen?(No)) PA; Reason for Study: Shortness of BreathMEDICATION/IV/DRIP/FLUID ORDERSOrder Description Priority Entered Acknowledged InitialedIV NS : Bolus 500 20:01 05/31/2020 20:14 Neva, then 150 mL/hr Mikey Metclaf RN PA;Zofran ODT PO 8 20:01 05/31/2020 [...] Pressure 20:01 05/31/2020 20:07 BurnhamMonitor Mikey Oswald social worker assistantRamakrishna Lee; Amyc0Uteuzqe Monitor 20:01 05/31/2020 20:07 Himrod(continuous) [facility] TechRamakrishna PA; Lloi0YHV 20:05/31/2020 20:07 [facility] Tech, Ramakrishna ER 3 OrderSheet [facility] Emergency Department [address] [place] [address] Phone #: ext- [phone] 05/31/2020 19:25 [id number] Sex: F : 1980 Age: 40y PA; Xeze3Wuubp oximeter 20:05/31/2020 20:07 Himrod(Continuous) [facility] Ramakrishna Lee; Uwhb9Kicgil Lock 20:05/31/2020 20:11 Jeff Metcalf RN PA;Vitals 20:05/31/2020 20:07 [facility]; Tech1[Electronically signed by Jeff Metcalf RN (22:28 05/31/2020)][Electronically signed by Mikey Oswald (07:34 06/01/2020)][Electronically locked by Jeff Metcalf RN (22:28 05/31/2020)] Name Value Range Interpretation Code Description Data Sumaya rce(s) Supporting Document(s) ID Date Data Source [id number] 05/31/2020 07:27:00 PM EDT [facility] 1 Medication Reconciliation Report [facility] Emergency Department [address] [place] [address] Phone #: ext- [phone] 05/31/2020 19:25 Patient: [...] gm, q4h, via J tube Creon Oral (2365-5114 unit) 1 capsule, 4x a day, J [...] 05/31/2020 8:27:00 PM 2 Medication Reconciliation Report [facility] Emergency Department [address] [place] [address] Phone #: ext- [phone] 05/31/2020 19:25 Patient: [...] rce(s) Supporting Document(s) ID Date Data Source [id number] 05/31/2020 07:27:00 PM EDT [facility] 1 Medication Administration Record [facility] Emergency Department [address] [place] [address] Phone #: ext- [phone] 05/31/2020 19:25 Patient: NI DIAZ Sex: F : 1980 Age: 40yWeight: 68.0 kgHeight/Length: 67 inBMI: 23.5ALLERGIES: NSAID, Levaquin, Sulfa Antibiotics Date/Time Medication Administered Medication OrderedStart IV NS IV NS : Bolus 500 mL, then 17682:14 05/31/2020 Dose: IV Fluids mL/hrPgabriela Metcalf RN [...] rce(s) Supporting Document(s) ID Date Data Source [id number] 05/31/2020 07:27:00 PM EDT [facility] 1 General Instructions [facility] Emergency Department [address] [place] [address] Phone #: ext- [phone] 05/31/2020 19:25 Patient: NI DIAZ Sex: F : 1980 Age: 40ySinus tachycardiaINSTRUCTIONSUnderstanding of the discharge instructions verbalized by patient and family.Follow-up with: Matt Sena MD, Cardiology, , [address] [place] [address], [phone] Follow up tomorrow. Call for an appointment. [...] coffee, tea, cola and some medicines. Some vwic-eco-rmiwpsx cold andsinus remedies, diet pills, and some [...] for a stop-smoking program. 2 General Instructions [facility] Emergency Department [address] [place] [address] Phone #: ext- [phone] 05/31/2020 19:25 [id number] Sex: F : 1980 Age: 40y If [...] breath Weakness Fainting or lightheadedness Sustained palpitations [phone] [employer]. [address] [place] [address], [place] [address]. All rights reserved. This information is not intended as asubstitute for professional medical care. Always follow your healthcare professional's instructions. You have been given the following additional information: Tachycardia: PAT(Electronically signed by TROY Rosa 06/01/2020 07:34) Name Value Range Interpretation Code Description Data Sumaya rce(s) Supporting Document(s) ID Date Data Source [id number] 05/31/2020 07:27:00 PM EDT [facility] 1 Clinical Report - Nurses [facility] Emergency Department [address] [place] [address] Phone #: ext- [phone] 05/31/2020 19:25 Patient: NI DIAZ Sex: F : 1980 Age: 40yTRIAGEArrived by private vehicle. Historian: patient. Accompanied by family. ( started this am and has gottenprogressively worse).Acuity: LEVEL 3.Chief Complaint: (heart racing).Alert.Onset. (this am). 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 (1300).SEPSIS SCREEN: SIRS Screen negative. Sepsis [...] tube. Creon Oral (Capsule Delayed Release Particles 9449-8500 unit) 1 capsule, 4x a day, J [...] but declined. 2 Clinical Report - Nurses [facility] Emergency Department [address] [place] [address] Phone #: ext- [phone] 05/31/2020 19:25 [id number] Sex: F : 1980 Age: 40y Infectious [...] Gillis R.N. 3 Clinical Report - Nurses [facility] Emergency Department [address] [place] [address] Phone #: ext- [phone] 05/31/2020 19:25 Patient: NI DIAZ [facility]#: [id number] Sex: F : 1980 Age: 40y19:39 05/31/2020 Site #1 started via IV using a PICC line in the right with an 18g angiocath; one attempt.Blood drawn: rainbow set and green tube(s). Sent to the lab. Saline lock flushed with 10 mL saline (rightchest dual port galicia catheter). --19:39 05/31/20 Erika Gillis RCarmeloN.surveillance monitor, NIBP monitor and pulse oximeter placed on patient; surveillance monitor- Lead II; monitoralarms on. Patient gowned. [...] Metcalf RN 4 Clinical Report - Nurses [facility] Emergency Department [address] [place] [address] Phone #: ext- [phone] 05/31/2020 19:25 Patient: NI DIAZ Sex: F [...] with the patient. Reviewed referral to a jewelry internship. Patient verbalized understanding. Written instructions provided in Macedonian. 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 She was discharged home and accompanied by spouse. She left ambulatory and via private vehicle. Spouse driving. --:05/31/20 Jeff Metcalf RN 22:05/31/20. BP: 111/86. MAP: 94. HR: 112. RR: 18. O2 saturation: 100%. Pain level now: 510. --22:05/31/20 Jeff Metcalf RN.Locked/Released at 05/31/2020 22:28 by Jeff Metcalf RN Name Value Range Interpretation Code Description Data Sumaya rce(s) Supporting Document(s) ID Date Data Source [id number] 05/31/2020 07:27:00 PM EDT [facility] 1 Clinical Report - Physicians/Mid Levels [facility] Emergency Department [address] [place] [address] Phone #: ext- [phone] 05/31/2020 19:25 Patient: NI DIAZ Sex: F [...] (disorder). Hypoxia. 2 Clinical Report - Physicians/Mid [facility] Emergency Department [address] [place] [address] Phone #: ext- [phone] 05/31/2020 19:25 [id number] Sex: F : 1980 Age: 40y Hypokalemia. [...] normal. 3 Clinical Report - Physicians/Mid Levels [facility] Emergency Department [address] [place] [address] Phone #: ext- [phone] 05/31/2020 19:25 Patient: [...] making process. D-Dimer: (LUISANA: 05/31/2020 20:00) ( [facility] 05/31/2020 20:43) Final results Test Result Flag Units (Reference) D-DIMER QUANT 0.27 ug/mL (0.27 - 0.50) CBC w Diff: (LUISANA: 05/31/2020 19:48) ( [facility] 05/31/2020 20:11) Final results Test Result Flag [...] 153) 4 Clinical Report - Physicians/Mid Levels [facility] Emergency Department [address] [place] [address] Phone #: ext- [phone] 05/31/2020 19:25 Patient: [id number] Sex: F : 1980 Age: 40y POTASSIUM [...] Male GFR Interprentation 20-49 yrs >60 mL/min Bfrdys22-82 yrs >56 mL/min Normal 60-69 yrs >49 mL/min Normal 70-79yrs>42 mL/min Normal 80 and above >35 mL/min Normal Female GFRInterpretation 20-39 yrs >60 mL/min Normal 40-49 yrs >58 mL/minNormal 50-59 yrs >51 mL/min Normal 60-69 yrs >45 mL/min Asxqwa00-07 yrs >39 mL/min Normal 80 and above [...] VenousThrombosis, Pulmonary Embolus, Tissue heart valves, Acute NH Atrial Fibrillation, Valvular heart diseaseand recurrent Systemic Embolism. -International Normalized Ratio (INR): 2.5 - 3.5 forMechanical Prosthetic valve.Lactic Acid: (LUISANA: 05/31/2020 19:48) ( MsgRcvd 05/31/2020 20:16) Final results Test Result Flag Units (Reference) LACTIC ACID 2.5 H MMOL/L (0.2 - 2.2)Urinalysis: (LUISANA: 05/31/2020 20:00) ( [facility] 05/31/2020 21:30) Final results Test Result Flag Units (Reference) URINALYSIS URINALYSIS SOURCE R COLOR yellow (NORMAL: Yello CLARITY hazy (NORMAL: Clear SPEC GRAVITY 1.015 (1.001 - 1.030 pH 7 (5 - 9) GLUCOSE NORM (NORMAL: Negat BILIRUBIN NEG (NORMAL: Negat KETONE NEG (NORMAL: Negat PROTEIN 30 (NORMAL: Negat NITRITE NEG (NORMAL: Negat 5 Clinical Report - Physicians/Mid Levels [facility] Emergency Department [address] [place] [address] Phone #: ext- [phone] 05/31/2020 19:25 Patient: NI DIAZ Sex: F : 1980 Age: 40y BLOOD NEG (NORMAL: Negat LEUK EST 25 (NORMAL: Negat UROBILINOGEN NOR (less than 1.0 MICROSCOPIC See Below WBC 1 - 3 (NORMAL: NONE RBC 1 - 3 (NORMAL: NONE EPITHELIAL MANY A (NORMAL: NONE BACTERIA 1+ SMALL (NORMAL: NONETroponin-T: (LUISANA: 05/31/2020 19:48) ( [facility] 05/31/2020 21:18) Final results Test Result Flag Units (Reference) TROPONIN T <0.01 NG/ML (0.00 - 0.10) TROPONIN T0.1 ng/ml Recommended as the clinical threshold value forTroponin T.Chest Portable 1 View: (LUISANA: 05/31/2020 20:01) ( [facility] 05/31/2020 21:45) In ProgressCHEST PORTABLEReason(s): Shortness of BreathTRANSPORTATION: WC IV? O2? Oxygen?(No) Room: ED Exam CHEST PORTABLE [address] [place] [address] PHONE: [phone] FAX: [phone] Name .................. : BASILIO Torres Acct Number.................. : [id number] ROOM. ................. : [facility] MR Number ................... : [id number] Stay type ............. : E/R Discharge Date......... ... : Admit Date ......... : 05/31/20 Admit Phys .................... : DAREK Date of ....... : 1980 Family Phys ................... : MITA KA Phone .................. : [phone] Age ................................ : 40 Film# .................. .:[id number] Sex ................................. : F Unsigned transcriptions are preliminary reports and do not represent a medical or legal document CHEST PORTABLE [id number] COMPLETE:05/31/20 21:34 RLB [id number] Reason(s): Shortness of Breath PORTABLE CHEST X-RAY: [...] Date: 6 Clinical Report - Physicians/Mid Levels [facility] Emergency Department [address] [place] [address] Phone #: ext- [phone] 05/31/2020 19:25 Patient: NI DIAZ Sex: F : 1980 Age: 40y <<REPDIST>> Page 1 of 1.PROGRESS AND PROCEDURESCourse of Care: 22:May 31 2020. Evaluation after cardiac monitoring and results of tests back.Lavaged. (Discussed risks, benefits, options and pt is agreeable with dx and tx plan. D/W Faye Berg TRAVELING CLERK willstart on Metoporol 25mhg and have her call Jaida's office n the AM. Pending TSH results.). Patient counseled in person regarding the patient's stable condition and diagnosis. 22:May 31 2020. Disposition: Discharged home in good and improved condition (22:May 31 2020).CLINICAL IMPRESSION Sinus tachycardiaINSTRUCTIONS Understanding of the discharge instructions verbalized by patient and family. Follow-up with: Matt Sena MD, Cardiology, , [address] [place] [address], [phone] Follow up tomorrow. Call for an appointment. Reason for referral: evaluation and treatment. Summary of care provided to patient and family.(Electronically signed by TROY Rosa 06/01/2020 07:34) Name Value Range Interpretation Code Description Data Sumaya rce(s) Supporting Document(s) ID Date Data Source [id number] 06/06/2020 07:24:00 AM EDT [facility] [id number] Name Value Range Interpretation Code Description Data Sumaya rce(s) Supporting Document(s) Bacteria identified in Blood by Culture [facility] NO GROWTH AFTER 5 DAYS ID Date Data Source [id number] 06/05/2020 07:29:00 AM EDT [facility] [address] Name Value Range Interpretation Code Description Data Sumaya rce(s) Supporting Document(s) TRIMETHOPRIM/SULFAMETHOXAZOLE <0.5/9.5 Recio sceptible. Indicates for microbiology susceptibilities only. [facility] Amoxicillin+Clavulanate [Susceptibility] by Minimum inhibitory concentration (ZHANE) <4/2 Susceptible. Indicates for microbiology s usceptibilities only. [facility] Ampicillin [Susceptibility] by Minimum inhibitory concentration (ZHANE) 4 Resistant. Indicates for microbiology susceptibilities only. [facility] Ampicillin+Sulbactam [Susceptibility] by Minimum inhib itory concentration (ZHANE) <8/4 Susceptible. Indicates for microbiology suscepti bilities only. [facility] Cefazolin [Susceptibility] by Minimum inhibitory concentration ( ZHANE) <4 Susceptible. Indicates for microbiology susceptibilities only. [facility] Ciprofloxacin [Susceptibility] by Minimum inhibitory concentrati on (ZHANE) <1 Susceptible. Indicates for microbiology susceptibilities only. [facility] Clindamycin [Susceptibility] by Minimum inhibitory concentration (ZHANE) <0.5 Susceptible. Indicates for microbiology susceptibilities only. [facility] Erythromycin [Susceptibility] by Minimum inhibitory concentratio n (ZHANE) <0.5 Susceptible. Indicates for microbiology susceptibilities only. [facility] Gentamicin [Susceptibility] by Minimum inhibitory concentration (ZHANE) <4 Susceptible. Indicates for microbiology susceptibilities only. [facility] Oxacillin [Susceptibility] by Minimum inhibitory concentration ( ZHANE) <0.25 Susceptible. Indicates for microbiology susceptibilities only. [facility] Penicillin [Susceptibility] by Minimum inhibitory concentration (ZHANE) >8 Resistant. Indicates for microbiology susceptibilities only. [facility] Tetracycline [Susceptibility] by Minimum inhibitory concentratio n (ZHANE) <4 Susceptible. Indicates for microbiology susceptibilities only. [facility] Vancomycin [Susceptibility] by Minimum inhibitory concentration (ZHANE) 2 Susceptible. Indicates for microbiology susceptibilities only. [facility] Levofloxacin [Susceptibility] by Minimum inhibitory concentratio n (ZHANE) <1 Susceptible. Indicates for microbiology susceptibilities only. [facility] Moxifloxacin [Susceptibility] by Minimum inhibitory concentratio n (ZHANE) <0.5 Susceptible. Indicates for microbiology susceptibilities only. [facility] ID Date Data Source [id number] 06/06/2020 11:24:00 AM EDT [facility] Name Value Range Interpretation Code Description Data Sumaya rce(s) Supporting Document(s) CULTURE BLOOD [facility] spital _CULTURE BLOOD_ [place] [address] CLIA# [id number] SEE SCANNED REPORT{ PRELIM ID Date Data Source [id number] 06/02/2020 11:01:00 AM EDT [facility] 06/02/20 1058 CALLED TO NEMO Thomas BY [...] rce(s) Supporting Document(s) ID Date Data Source [id number] 06/02/2020 11:32:00 AM EDT [facility] Name Value Range Interpretation Code Description Data Sumaya rce(s) Supporting Document(s) CULTURE BLOOD [facility] spital _CULTURE BLOOD_ TEST PERFORM ED AT [place] [place] [id number] [place] [address] CLIA# [id number] SEE SCANNED REPORT{ PRELIM GROWTH OF STPAH SPECIESCALLED TO BRITTANY 06/02/20 ID Date Data Source [id number] 05/31/2020 08:43:00 PM EDT [facility] Value Range Interpretation Code Description Data Sumaya rce(s) Supporting Document(s) Fibrin D-dimer FEU [Mass/volume] in Platelet poor plasma 0.27 ug /mL 0.27 - 0.50 [facility] ID Date Data Source [id number] 05/31/2020 11:20:00 PM EDT [facility] Value Range Interpretation Code Description Data Sumaya rce(s) Supporting Document(s) Thyrotropin [Units/volume] in Serum or Plasma by Detec tion limit <= 0.05 mIU/L 2.83 uIU/mL 0.47 - 5.01 [facility] ID Date Data Source [id number] 05/31/2020 09:30:00 PM EDT [facility] Value Range Interpretation Code Description Data Sumaya rce(s) Supporting Document(s) URINALYSIS [facility] Hos[facility] gregg URINALYSIS SOURCE R [facility] al COLOR yellow NORMAL: Yellow [facility]sp[facility] CLARITY hazy NORMAL: Clear [facility] spital Specific gravity of Urine by Test strip 1.015 1.001 - 1.030 [facility] pH 7 5 - 9 [facility] Glucose [Mass/volume] in Urine by Test strip NORM NORMAL: Negat [facility] Bilirubin.total [Presence] in Urine by Test strip NEG NORMAL: Negative [facility] Ketones [Presence] in Urine by Test strip NEG NORMAL: Negative [facility] Protein [Mass/volume] in Urine by Test strip 30 NORMAL: Negat [facility] Nitrite [Presence] in Urine by Test strip NEG NORMAL: Negative [facility] BLOOD NEG NORMAL: Negative [facility] Leukocyte esterase [Presence] in Urine by Test strip 25 DELANO L: Negative [facility] Urobilinogen [Mass/volume] in Urine by Test strip NOR less tenisha n 1.0 mg/dL [facility] MICROSCOPIC See Below [facility] ital WBC 1 - 3 NORMAL: NONE SEEN [facility] Erythrocytes [#/volume] in Urine by Test strip 1 - 3 NORMAL: NON E SEEN [facility] EPITHELIAL MANY NORMAL: NONE SEEN [facility] Bacteria [Presence] in Urine sediment by Light microscopy 1+ SMALL NORMAL: NONE SEEN [facility] ID Date Data Source [id number] 05/31/2020 09:18:00 PM EDT [facility] Name Value Range Interpretation Code Description Data Sumaya rce(s) Supporting Document(s) TROPONIN T <0.01 NG/ML 0.00 - 0.10 [facility] ospital TROPONIN T0.1 ng/ml Recommended as the c linical threshold value forTroponin T. ID Date Data Source [id number] 05/31/2020 09:17:00 PM EDT [facility] Name Value Range Interpretation Code Description Data Sumaya rce(s) Supporting Document(s) COMPREHENSIVE METABOLIC PANEL [facility] COMPREHENSIVE METABOLIC PANEL Sodium [Moles/volume] in Serum or Plasma 141 mEq/L 134 - 153 [facility] Potassium [Moles/volume] in Serum or Plasma 3.4 mEq/L 3.6 - 5.0 L [facility] Chloride [Moles/volume] in Serum or Plasma 105 mEq/L 98 - 107 [facility] Carbon dioxide, total [Moles/volume] in Serum or Plasma 23 MEQ/L 22 - 30 [facility] Glucose [Mass/volume] in Serum or Plasma 100 MG/DL 65 - 110 [facility] BUN 8 MG/DL 7 - 21 [facility] Creatinine [Mass/volume] in Serum or Plasma 0.7 MG/DL 0.7 - 1.5 [facility] BUN/CREAT 11 8 - 27 [facility] al Protein [Mass/volume] in Serum or Plasma 6.6 G/DL 6.3 - 8.2 [facility] Albumin [Mass/volume] in Serum or Plasma 4.5 G/DL 3.9 - 5.0 [facility] Globulin [Mass/volume] in Serum by calculation 2.1 GM/DL 2.4 - 3.2 L [facility] A/G RATIO 2.1 0.8 - 2.0 H [facility] al Calcium [Mass/volume] in Serum or Plasma 9.4 MG/DL 8.4 - 10.2 [facility] Bilirubin.total [Mass/volume] in Serum or Plasma <0.7 MG/DL 0.2 - 1.3 [facility] Alkaline phosphatase [Enzymatic activity/volume] in Serum or Plasma 89 U/L 38 - 126 [facility] Aspartate aminotransferase [Enzymatic activity/volume] in Serum or Plasma 16 U/L 5 - 40 [facility] Alanine aminotransferase [Enzymatic activity/volume] in Seru m or Plasma 13 U/L 7 - 56 [facility] Anion gap 3 in Serum or Plasma 13.0 mmol/L 8.0 - 16.0 [facility] AGE 40 yrs [facility] al NON-AA GFR >60 mL/min [facility] ital AFR AMER GFR >60 mL/min [facility] Ho spital Male GFR In terprentation [...] >32 mL/min Normal ID Date Data Source [id number] 05/31/2020 08:43:00 PM EDT [facility] Name Value Range Interpretation Code Description Data Sumaya rce(s) Supporting Document(s) Prothrombin time (PT) 13.7 SECONDS 11.0 - 15.5 [facility] INR in Platelet poor plasma by Coagulation assay 1.04 0.93 - 1. 23 [facility] aPTT in Blood by Coagulation assay 46.8 SECONDS 24.8 - 36.7 H [facility] \\BLDo\\INR INTERPRETATION\\BLDx\\ Therapeutic range for Coumadin and related oral anticoagulants. - International Normalized Ratio (INR): 2.0 - 3.0 for Venous Thrombosis, Pulmonary Embolus, Tissue heart valves, Acute NH Atrial Fibrillation, Valvular heart disease and recurrent Systemic Embolism. - International Normalized Ratio (INR): 2.5 - 3.5 for Mechanical Prosthetic valve. ID Date Data Source [id number] 05/31/2020 08:16:00 PM EDT [facility] Name Value Range Interpretation Code Description Data Sumaya rce(s) Supporting Document(s) Lactate [Moles/volume] in Serum or Plasma 2.5 MMOL/L 0.2 - 2.2 H [facility] ID Date Data Source [id number] 05/31/2020 08:11:00 PM EDT [facility] Name Value Range Interpretation Code Description Data Sumaya rce(s) Supporting Document(s) CBC W/AUTOMATED DIFF [facility] COMPLETE BLOOD COUNT Leukocytes [#/volume] in Blood by Automated count 7.3 10^3/uL 4.2 - 1 1.0 [facility] Erythrocytes [#/volume] in Blood by Automated count 3.87 10^6/uL 4. 20 - 5.40 L [facility] Hemoglobin [Mass/volume] in Blood 10.1 g/dL 12.0 - 16.0 L [facility] Hematocrit [Volume Fraction] of Blood by Automated count 31.9 % 3 7.0 - 47.0 L [facility] Erythrocyte mean corpuscular volume [Entitic volume] by Auto mated count 82.4 fL 81.0 - 101 [facility] Erythrocyte mean corpuscular hemoglobin [Entitic mass] by Automated count 26.1 pg 27.0 - 34.0 L [facility] Erythrocyte mean corpuscular hemoglobin concentration [Mass/volume] by Automated count 31.7 g/dL 31.0 - 36.0 [facility] Erythrocyte distribution width [Ratio] by Automated count 15.5 % 11.5 - 14.5 H [facility] Platelets [#/volume] in Blood by Automated count 473 10^3/uL 150 - 45 0 H [facility] Platelet mean volume [Entitic volume] in Blood by Automated count 9.3 fL 7.4 - 10.4 [facility] Neutrophils/100 leukocytes in Blood by Automated count 57.9 % 37. 0 - 80.0 [facility] Lymphocytes/100 leukocytes in Blood by Manual count 29.7 % 25.0 - 40.0 [facility] Monocytes/100 leukocytes in Blood by Automated count 8.7 % 3.0 - 8.0 H [facility] Eosinophils/100 leukocytes in Blood by Automated count 2.6 % 0.0 - 7.0 [facility] Basophils/100 leukocytes in Blood by Automated count 0.7 % 0.0 - 2.5 [facility] %IG 0.4 % 0.0 - 0.0 H [facility] Hospit al %NRBC 0.0 % 0.0 - 0.0 [facility] al Neutrophils [#/volume] in Blood by Automated count 4.20 10^3/uL 2.00 - 6.90 [facility] Lymphocytes [#/volume] in Blood by Automated count 2.15 10^3/uL 0.60 - 3.40 [facility] Monocytes [#/volume] in Blood by Automated count 0.63 10^3/uL 0.00 - 0.90 [facility] Eosinophils [#/volume] in Blood by Automated count 0.19 10^3/uL 0.00 - 0.70 [facility] Basophils [#/volume] in Blood by Automated count 0.05 10^3/uL 0.00 - 0.20 [facility] #IG 0.03 10^3/uL 0.00 - 0.10 [facility] ospital #NRBC 0.00 10^3/uL 0.00 - 0.00 [facility] ospital MANUAL DIFF NOT INDICATED [facility] RBC MORPH NOT INDICATED [facility] spital ID Date Data Source [id number] 05/23/2020 08:56:00 AM EDT [facility] [address] [place] [address] PHONE: [phone] FAX: [phone] Name .................. : BASILIO Torres [facility] Number.................. : [id number] ROOM. ................. : [facility] MR Number ................... : [id number] Stay type ............. : E/R Discharge Date......... ... : 05/22/20 Admit Date ......... : 05/22/20 Admit Phys .................... : DESIREE CESPEDES Date of ....... : 1980 Family Phys ................... : [employer] Phone .................. : [phone] Age ................................ : 40 Film# .................. .:[id number] Sex ................................. : F Unsigned transcriptions are preliminary reports and do not represent a medical or legal document CT ABD & PELV W/[place] OR[place] W/[place] [id number] COMPLETE:05/22/20 19:41 [facility] [address] Reason(s): Abdominal Pain CT OF THE ABDOMEN [...] air pockets. IMPRESSION: Page 1 of 2 [facility] [address] [place] [address] PHONE: [phone] FAX: [phone] Name .................. : BASILIO Torres Acct Number.................. : [id number] ROOM. ................. : TR-05 Number ................... : [id number] Stay type ............. : E/R Discharge Date......... ... : 05/22/20 Admit Date ......... : 05/22/20 Admit Phys .................... [facility] Date of ....... : 1980 Family Phys ................... : [employer] Phone .................. : [phone] Age ................................ : 40 Film# .................. .:[id number] Sex ................................. : F Unsigned transcriptions are preliminary reports and do not represent a medical or legal document CT ABD & PELV W/[place] OR[place] W/[place] [id number] COMPLETE:05/22/20 19:41 [facility] [place] [address] Reason(s): Abdominal Pain Moderate amount of stool. Mild constipation. Mild splenomegaly. No free air or free fluid. While performing the above CT examination, radiation dose reduction was accomplished utilizing automated exposure control, adjusting of the mA and kV based on the patient's body size and/or the use of imperative reconstructive techniques. CT dose: 922.0 mGycm Electronically Reviewed and Signed By Lake Gupta MD , 05/23/20 08:56, FROILAN Transcribe Initials: DZ , Transcribe Date: 05/22/20 20:23, Dictation Date: Copy for: DAREK LUCAS via fax Copy for: EMERGENCY DEPT via modem Copy for: 710 MED REC DISCHARGED Page 2 of 2 Name Value Range Interpretation Code Description Data Sumaya rce(s) Supporting Document(s) ID Date Data Source [id number] 05/22/2020 04:24:00 PM EDT [facility] 1 OrderSheet [facility] Emergency Department [address] [place] [address] Phone #: ext- [phone] 05/22/2020 16:19 Patient: [...] Oswald PACMP STAT 16:39 05/22/2020 16:51 Jeff Metcalf RN PA; Reason for ordering with alerts: Clinical consideration given -- 16:39 05/22/2020 Mikey Oswald PALipase STAT 16:39 05/22/2020 16:51 Jeff Metcalf RN PA; Reason for ordering with alerts: Clinical consideration given -- 16:39 05/22/2020 Mikey Oswald PABlood Culture STAT 16:39 05/22/2020 17:27 [id number] X2 (Sched [facility] social worker assistant, [place] [facility]16:39 05/22/2020) PA; Tech1 Reason for ordering with alerts: Clinical consideration given -- 16:39 05/22/2020 Mikey Oswald PABlood Culture STAT 16:39 05/22/2020 17:27 [id number] X2 (Sched [facility] social worker assistant, [place] [facility]16:49 05/22/2020) PA; Tech1 Reason for ordering with alerts: Clinical consideration given -- 16:39 05/22/2020 Mikey Oswald PALactic Acid STAT 16:39 05/22/2020 16:51 Jeff Flores OrderSheet [facility] Emergency Department [address] [place] [address] Phone #: [phone] mer- [phone] 05/22/2020 16:19 Patient: NI DIAZ Sex: F : 1980 Age: 40y Mikey Metcalf RN PA; Reason for ordering with alerts: Clinical consideration given -- 16:39 05/22/2020 Mikey Oswald PADIAGNOSTIC STUDY ORDERSOrder Description Priority Entered Acknowledged InitialedCT Abd PEL W/ IV STAT 17:11 05/22/2020 Ack'd: 17:27 [facility] social worker assistant, JesseContrast Only Mikey Oswald ER Tech1(Oxygen?(No)) PA; [...] 16:3 9 05/22/2020 16:51 Jeff 3 OrderSheet [facility] Emergency Department [address] [place] [address] Phone #: ext- [phone] 05/22/2020 16:19 Patient: [...] rce(s) Supporting Document(s) ID Date Data Source [id number] 05/22/2020 04:24:00 PM EDT [facility] 1 Medication Reconciliation Report [facility] Emergency Department [address] [place] [address] Phone #: ext- [phone] 05/22/2020 16:19 Patient: NI DIAZ Sex: F : 1980 Age: 40yWeight: 68.0 kgHeight/Length: 67 in.BMI: 23.5ALLERGIES: Levaquin, Sulfa Antibiotics, traZODone HClThe patient's Home Medications are listed below:CONTINUE TAKING THE FOLLOWING MEDICATIONS: Ambien Oral 7.5, daily, via J tube, prn,at bedtime Benadryl IV 50mg QDAY for nausea, 2x a day Carafate Oral 1 gm, q4h, via J tube Creon Oral (2608-7210 unit) 1 capsule, 4x a day, J [...] 05/22/2020 4:58:00 PM 2 Medication Reconciliation Report [facility] Emergency Department [address] [place] [address] Phone #: ext- [phone] 05/22/2020 16:19 Patient: NI DIAZ Sex: F : 1980 Age: 40yDilaudid [IVP] IVP 2 mg, administered: 05/22/2020 6:06:00 PMNS [IV] IV Fluids bolus 0, then 150 mL/hr, administered: 05/22/2020 6:49:00 PMThe following Medications were prescribed to the patient:None. Name Value Range Interpretation Code Description Data Sumaya rce(s) Supporting Document(s) ID Date Data Source [id number] 05/22/2020 04:24:00 PM EDT [facility] 1 Medication Administration Record [facility] Emergency Department [address] [place] [address] Phone #: [phone] inc- [phone] 05/22/2020 16:19 Patient: NI DIAZ Sex: F : 1980 Age: 40yWeight: 68.0 kgHeight/Length: 67 inBMI: 23.5ALLERGIES: Levaquin, Sulfa Antibiotics, traZODone HCl Date/Time Medication Administered Medication OrderedStart NS [IV] NS IV : Bolus 1000 mL, then 57830:58 05/22/2020 Dose: IV Fluids mL/Julissa Metcalf RN Rate: 1000 mL/hr over 1 hour(s)---- Dispensed: 1000 mL bagStop Site: #1 right PICC18:44 05/22/2020PeMAGGI [place] NS [IV] NS IV : Bolus 1000 mL, then 32362:49 05/22/2020 Dose: IV Fluids mL/Julissa Metcalf RN [...] rce(s) Supporting Document(s) ID Date Data Source [id number] 05/22/2020 04:24:00 PM EDT [facility] 1 General Instructions [facility] Emergency Department [address] [place] [address] Phone #: ext- [phone] 05/22/2020 16:19 Patient: [...] tube.Creon Oral : Capsule Delayed Release Particles [id number] unit, 1 capsule 4x a day, J [...] of Abdominal Pain (Female) 2 General Instructions [facility] Emergency Department [address] [place] [address] Phone #: ext- [phone] 05/22/2020 16:19 Patient: [...] for pain, symptoms, or an infection. [facility] instructions for taking these medicines. 3 General Instructions [facility] Emergency Department [address] [place] [address] Phone #: ext- [phone] 05/22/2020 16:19 Patient: [...] to improve in thenext 24 hours.Call 911Call [phone] if any of these occur: Trouble breathing Confusion Fainting or loss of consciousness Rapid heart rate 4 General Instructions [facility] Emergency Department [address] [place] [address] Phone #: ext- [phone] 05/22/2020 16:19 Patient: [...] or water and you are getting dehydrated [id number] [employer]. [address] [place] [address]. All rights reserved. This information is not [...] she finds when evaluatingyou. 5 General Instructions [facility] Emergency Department [address] [place] [address] Phone #: ext- [phone] 05/22/2020 16:19 Patient: [...] ids, and colon cancerComplications 6 General Instructions [facility] Emergency Department [address] [place] [address] Phone #: ext- [phone] 05/22/2020 16:19 Patient: [...] take a stool softener. 7 General Instructions [facility] Emergency Department [address] [place] [address] Phone #: ext- [phone] 05/22/2020 16:19 Patient: [...] stool Black, tarry stool 8 General Instructions [facility] Emergency Department [address] [place] [address] Phone #: cyv- [phone] 05/22/2020 16:19 Patient: NI DIAZ Sex: F : 1980 Age: 40y Involuntary weight loss Weakness 1999- 2017 [employer]. [address] [place] [address]. All rights reserved. This information is not intended as asubstitute for professional medical care. Always follow your healthcare professional's instructions. You have been given the following additional information: Abdominal Pain, Unknown Cause, (Female) Constipation (Adult)(Electronically signed by TROY Rosa 05/22/2020 21:35) Name Value Range Interpretation Code Description Data Sumaya rce(s) Supporting Document(s) ID Date Data Source [id number] 05/22/2020 04:24:00 PM EDT [facility] 1 Clinical Report - Nurses [facility] Emergency Department [address] [place] [address] Phone #: ext [phone] 05/22/2020 16:19 [id number] Sex: F : 1980 Age: 40yTRIAGEArrived by [...] jejunalfeedings.). 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 Creon Oral (Capsule Delayed Release Particles [id number] unit) 1 capsule, 4x a day, J [...] Navarrete R.N. 2 Clinical Report - Nurses [facility] Emergency Department [address] [place] [address] Phone #: ext- [phone] 05/22/2020 16:19 [id number] Sex: F : 1980 Age: 40y Medication/allergy [...] Metcalf RN. 3 Clinical Report - Nurses [facility] Emergency Department [address] [place] [address] Phone #: ext- [phone] 05/22/2020 16:19 Patient: [...] pain, redness, 4 Clinical Report - Nurses [facility] Emergency Department [address] [place] [address] Phone #: ext- [phone] 05/22/2020 16:19 Patient: NI DIAZ Sex: F : 1980 Age: 40y or swelling. IV flushed thoroughly pre- and post-medication administration. Information reviewed with patient including reason for taking this medication. Verbalizes understanding. --18:49 05/22/20 Jeff Mtecalf RN 19:33 05/22/2020 IV Fluids NS via [...] Patient verbalized understanding. Written instructions provided in Macedonian. 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 She was discharged home and accompanied by [...] rce(s) Supporting Document(s) ID Date Data Source [id number] 05/22/2020 04:24:00 PM EDT [facility] 1 Clinical Report - Physicians/Mid Levels [facility] Emergency Department [address] [place] [address] Phone #: ext- [phone] 05/22/2020 16:19 Patient: [...] tube. Creon Oral (Capsule Delayed Release Particles [id number] unit) 1 capsule, 4x a day, J tube. FLUoxetine HCl Oral 20 mg, daily, via J tube. Ondansetron HCl Injection 8 mg IVP, q8h as needed. oxyCODONE HCl Oral 100/5 ml; 1ML, 4x a day as needed, via J tube. Protonix Intravenous (Solution Reconstituted 40 mg), 2x a day. Tylenol Oral, as needed.Allergies:Levaquin.Sulfa Antibiotics.traZODone HCl.SOCIAL HISTORY 2 Clinical Report - Physicians/Mid Levels [facility] Emergency Department [address] [place] [address] Phone #: ext- [phone] 05/22/2020 16:19 [id number] Sex: F : 1980 Age: 40y Never [...] IV Contrast Only: (LUISANA: 05/22/2020 17:11[facility] Canceled Reason(s): Abdominal Pain Reason(s): [...] 7.0) 3 Clinical Report - Physicians/Mid Levels [facility] Emergency Department [address] [place] [address] Phone #: ext- [phone] 05/22/2020 16:19 Patient: [...] Male GFR Interprentation 20-49 yrs >60 mL/min Tlrhko02-00 yrs >56 mL/min Normal 60- 69 yrs >49 mL/min Normal 70-79yrs>42 mL/min Normal 80 and above >35 mL/min Normal Female GFRInterpretation 20-39 yrs >60 mL/min Normal 40-49 yrs >58 mL/minNormal 50-59 yrs >51 mL/min Normal 60-69 yrs >45 mL/min Bxluly69-41 yrs >39 mL/min Normal 80 and above [...] URINALYSIS 4 Clinical Report - Physicians/Mid Levels [facility] Emergency Department [address] [place] [address] Phone #: ext- [phone] 05/22/2020 16:19 Patient: [...] day. 5 Clinical Report - Physicians/Mid Levels [facility] Emergency Department [address] [place] [address] Phone #: ext- [phone] 05/22/2020 16:19 Patient: NI DIAZ Sex: F : 1980 Age: 40y Carafate Oral : 1 gm q4h, via J tube. Creon Oral : Capsule Delayed Release Particles [id number] unit, 1 capsule 4x a day, J [...] rce(s) Supporting Document(s) ID Date Data Source [id number] 05/28/2020 07:00:00 AM EDT [facility] [id number] Name Value Range Interpretation Code Description Data Sumaya rce(s) Supporting Document(s) Bacteria identified in Blood by Culture [facility] NO GROWTH AFTER 5 DAYS ID Date Data Source [id number] 05/29/2020 12:38:00 PM EDT [facility] Name Value Range Interpretation Code Description Data Sumaya rce(s) Supporting Document(s) CULTURE BLOOD [facility] Ho spital _CULTURE BLOOD_ TEST PERFORM ED AT [address] [address] CLIA# [id number] SEE SCANNED REPORT{ PRELIM ID Date Data Source [id number] 05/29/2020 12:38:00 PM EDT [facility] Name Value Range Interpretation Code Description Data Sumaya rce(s) Supporting Document(s) CULTURE BLOOD [facility] spital _CULTURE BLOOD_ TEST PERFORM ED AT [address] [address] CLIA# [id number] SEE SCANNED REPORT{ PRELIM ID Date Data Source [id number] 05/22/2020 05:28:00 PM EDT [facility] Name Value Range Interpretation Code Description Data Sumaya rce(s) Supporting Document(s) COMPREHENSIVE METABOLIC PANEL [facility] COMPREHENSIVE METABOLIC PANEL Sodium [Moles/volume] in Serum or Plasma 135 mEq/L 134 - 153 [facility] Potassium [Moles/volume] in Serum or Plasma 3.8 mEq/L 3.6 - 5.0 [facility] Chloride [Moles/volume] in Serum or Plasma 103 mEq/L 98 - 107 [facility] Carbon dioxide, total [Moles/volume] in Serum or Plasma 21 MEQ/L 22 - 30 L [facility] Glucose [Mass/volume] in Serum or Plasma 131 MG/DL 65 - 110 H [facility] BUN 7 MG/DL 7 - 21 [facility] Creatinine [Mass/volume] in Serum or Plasma 0.8 MG/DL 0.7 - 1.5 [facility] BUN/CREAT 9 8 - 27 [facility] Protein [Mass/volume] in Serum or Plasma 6.2 G/DL 6.3 - 8.2 L [facility] Albumin [Mass/volume] in Serum or Plasma 4.0 G/DL 3.9 - 5.0 [facility] Globulin [Mass/volume] in Serum by calculation 2.2 GM/DL 2.4 - 3.2 L [facility] A/G RATIO 1.8 0.8 - 2.0 [facility] Calcium [Mass/volume] in Serum or Plasma 9.0 MG/DL 8.4 - 10.2 [facility] Bilirubin.total [Mass/volume] in Serum or Plasma <0.7 MG/DL 0.2 - 1.3 [facility] Alkaline phosphatase [Enzymatic activity/volume] in Serum or Plasma 143 U/L 38 - 126 H [facility] Aspartate aminotransferase [Enzymatic activity/volume] in Serum or Plasma 20 U/L 5 - 40 [facility] Alanine aminotransferase [Enzymatic activity/volume] in Seru m or Plasma 35 U/L 7 - 56 [facility] Anion gap 3 in Serum or Plasma 11.0 mmol/L 8.0 - 16.0 [facility] AGE 40 yrs [facility] al NON-AA GFR >60 mL/min [facility] ital AFR AMER GFR >60 mL/min [facility] spital Male GFR In terprentation [...] >32 mL/min Normal ID Date Data Source [id number] 05/22/2020 05:28:00 PM EDT [facility] Name Value Range Interpretation Code Description Data Sumaya rce(s) Supporting Document(s) Lipase [Enzymatic activity/volume] in Serum or Plasma 20 U/L 13 - 60 [facility] ID Date Data Source [id number] 05/22/2020 05:24:00 PM EDT [facility] Name Value Range Interpretation Code Description Data Sumaya rce(s) Supporting Document(s) Lactate [Moles/volume] in Serum or Plasma 1.3 MMOL/L 0.2 - 2.2 [facility] ID Date Data Source [id number] 05/22/2020 05:10:00 PM EDT [facility] Name Value Range Interpretation Code Description Data Sumaya rce(s) Supporting Document(s) CBC W/AUTOMATED DIFF [facility] COMPLETE BLOOD COUNT Leukocytes [#/volume] in Blood by Automated count 6.2 10^3/uL 4.2 - 1 1.0 [facility] Erythrocytes [#/volume] in Blood by Automated count 3.68 10^6/uL 4. 20 - 5.40 L [facility] Hemoglobin [Mass/volume] in Blood 9.8 g/dL 12.0 - 16.0 L [facility] Hematocrit [Volume Fraction] of Blood by Automated count 31.0 % 3 7.0 - 47.0 L [facility] Erythrocyte mean corpuscular volume [Entitic volume] by Auto mated count 84.2 fL 81.0 - 101 [facility] Erythrocyte mean corpuscular hemoglobin [Entitic mass] by Automated count 26.6 pg 27.0 - 34.0 L [facility] Erythrocyte mean corpuscular hemoglobin concentration [Mass/volume] by Automated count 31.6 g/dL 31.0 - 36.0 [facility] Erythrocyte distribution width [Ratio] by Automated count 15.4 % 11.5 - 14.5 H [facility] Platelets [#/volume] in Blood by Automated count 340 10^3/uL 150 - 45 0 [facility] Platelet mean volume [Entitic volume] in Blood by Automated count 9.7 fL 7.4 - 10.4 [facility] Neutrophils/100 leukocytes in Blood by Automated count 67.9 % 37. 0 - 80.0 [facility] Lymphocytes/100 leukocytes in Blood by Manual count 17.7 % 25.0 - 40.0 L [facility] Monocytes/100 leukocytes in Blood by Automated count 9.0 % 3.0 - 8.0 H [facility] Eosinophils/100 leukocytes in Blood by Automated count 4.5 % 0.0 - 7.0 [facility] Basophils/100 leukocytes in Blood by Automated count 0.6 % 0.0 - 2.5 [facility] %IG 0.3 % 0.0 - 0.0 H [facility] al %NRBC 0.0 % 0.0 - 0.0 [facility] al Neutrophils [#/volume] in Blood by Automated count 4.21 10^3/uL 2.00 - 6.90 [facility] Lymphocytes [#/volume] in Blood by Automated count 1.10 10^3/uL 0.60 - 3.40 [facility] Monocytes [#/volume] in Blood by Automated count 0.56 10^3/uL 0.00 - 0.90 [facility] Eosinophils [#/volume] in Blood by Automated count 0.28 10^3/uL 0.00 - 0.70 [facility] Basophils [#/volume] in Blood by Automated count 0.04 10^3/uL 0.00 - 0.20 [facility] #IG 0.02 10^3/uL 0.00 - 0.10 [facility]spital #NRBC 0.00 10^3/uL 0.00 - 0.00 [facility] MANUAL DIFF NOT INDICATED [facility] RBC MORPH NOT INDICATED [facility] ID Date Data Source [id number] 05/22/2020 05:09:00 PM EDT [facility] Name Value Range Interpretation Code Description Data Sumaya rce(s) Supporting Document(s) [facility]ALYS[facility] SOURCE R [facility] al COLOR yellow NORMAL: Yellow [facility] ospital CLARITY hazy NORMAL: Clear [facility] Specific gravity of Urine by Test strip 1.020 1.001 - 1.030 [facility] pH 6 5 - 9 [facility] al Glucose [Mass/volume] in Urine by Test strip NORM NORMAL: Negat lucia [facility] Bilirubin.total [Presence] in Urine by Test strip NEG NORMAL: Negative [facility] Ketones [Presence] in Urine by Test strip NEG NORMAL: Negative [facility] Protein [Mass/volume] in Urine by Test strip 30 NORMAL: Negat lucia [facility] Nitrite [Presence] in Urine by Test strip NEG NORMAL: Negative [facility] BLOOD 10 NORMAL: Negative A [facility] Leukocyte esterase [Presence] in Urine by Test strip NEG DELANO L: Negative [facility] Urobilinogen [Mass/volume] in Urine by Test strip NOR less tenisha n 1.0 mg/dL [facility] MICROSCOPIC See Below [facility] ital WBC 1 - 3 NORMAL: NONE SEEN [facility] Erythrocytes [#/volume] in Urine by Test strip None Seen NORMAL: NON E SEEN [facility] EPITHELIAL MANY NORMAL: NONE SEEN A [facility] Bacteria [Presence] in Urine sediment by Light microscopy Tr nick NORMAL: NONE SEEN [facility] ID Date Data Source [id number] 04/14/2020 03:09:51 PM EDT [facility] Name Value Range Interpretation Code Description Data Sumaya rce(s) Supporting Document(s) Progress Note [facility] [id number] lbm [file] [id number] ID Date Data Source [id number] 03/08/2020 07:05:00 AM EDT [facility] Name Value Range Interpretation Code Description Data Sumaya rce(s) Supporting Document(s) Prealbumin 23 mg/dL 12-34 [facility] ID Date Data Source [id number] 02/23/2020 11:30:51 AM EDT [facility] Name Value Range Interpretation Code Description Data Sumaya rce(s) Supporting Document(s) Progress Note [facility] [id number]/AHIotFAOef9JxTUybNIp0XNrmMTFmQ6QbEOC7sK7eETY3EWxHEfGuWbBgWBF7 lbm SlKhyMPzBpLTLqEtiHTsQmWDysZsqqjEKzWK9UuIE9MLCgX92rYJYdXRPyK4TxWYD2YEY+Gc1CZZIcwI MjPI7UNoxR8G5GhwwNUm7nXI3YPmoinNKX3x1PnQOtCWnCrheK3G5Bl88bRLYKB2GFu2f/v5ISnKZnmU ny4ZRlMOfR9FZzFI2NnRq8OTy7q0/UXuhblqUW/9/+ GcaO6l+rv/3PCov1it633C+yNhwkYQSY9lXNF930leOlcgx/xlm4ZkP2S05hvBoi8HWFKpNm0Fv4OKjj lfTGw+vyzETkXBCdqmlSAk98WFc09dg+bF476FFn/KoOO+geG9l5SLg4CsmN8AfASCufuyN8dzGq5OWK qCTJVb8uPzMhChrq6E41I7RGh3d/XVjnyo2V0rJG8D gCmmEZuBywU22qKPY1bJDQBrTzfjJJullHfuS+uRBUis0ER8OdHriiF9h4+ROGfojs5wvhhrrQN91Tp1 WS3a8K47O/Yip7NYqOw4pSjWB10n0mCavos+G4dwp+ekw5IXoqFN9rfQaboAJTX6w5IG76P1CAgxgpUm WJQ8OxnD4oBpoa9aWMtn/Yt+PQ+KCxdU0ab7oh4t6E +QmjsZXS5JJMBgTIpGZ7Q2lG2jqZdvV+U+jY2G6sBNEAka2aS1ojSYlFEC+9pi9e7X4IgJrX5N8V4qR8 ygy7omMO6kXBuBaK0ctm8EhbniGsfd/cPKYmM2+2nPfMwhRimxjwVZgWh5b+RRdejkcGlWAxecExru0/ 4kX3QqrtmfQr1I/c80Twk1KNN5cYGNy73q4yYnDKcW oXOkSh5L8+JGlRo5ueZtogYHP4e+xaYcYc/4PkCnYiB6AKJS/CngPF6cg2NFcOfYlcn1Cc+nKSNcMob1 9kA7oeg07JwqNtat72IlyfbI5Y/WamwTlbUlVzl7bvHW6QmIts/QzXDzMQ/r6/91iN0nHkZ52AVcynkE DM6ildPp20HRUO245JlzsLkp8CcyMteHuyPf/LY/Day [file] zzs2/JAUO80feV7qI85qUGx9LwKPaSRUBxcnN4/SPRUE CUTTING PRESS OPERATOR+lnQH7FKs+F5jdXBE4Ag2az3fqJ8XGJYVyeo29 [file] [id number]= ID Date Data Source [id number] 02/10/2020 02:21:21 PM EDT [facility] Name Value Range Interpretation Code Description Data Sumaya rce(s) Supporting Document(s) Progress Note [facility] PRLJAk2lBpPGCtGa09/PJBmdMSDim1JdDWifKNt2CGitSRTaJ5EfVOY8uY9nEDG7CMsABgZeXvVqGWUm lbm KkBmuPVvBdCYMjTunSSuClIFczMxcpuJIxDP6HgVX9ARIuR18zOWGmKSCmY4IvFZAaKUg+Fj8DZHDaxO DdXY0SQloU2Siwlws6Ee0mmK7WxHWnvTPpMTqia4FTaPRQsfsAMvejqgoz9PbIyphJA2a820/feTM0xl E9ghhPQo2d4gHrFBe+I8DX9OBzQByi64/FUWSllCL/ v/41SrQYTMUf/lMbwETfB2i/ZNHFq8wusLiD2KbOfCL81ErbLthpwtI2yzjdMFcxxFzOCUIIe83Vu1oh tD+fLA/I19cmlfrUU8S51J6qrLPENdtOg11+Yo9zaDmBkPlDJgnJhZQ4Kh83NH7QYeVFb+PEp4Ui7K9Y 01SJva14vDOPQiIjfp+LaqkTmXk+syPLj7UcfXJmS2 0gT3vKUvjLMffyofsWGOWscBB6wicSZo7Yk5sXahloLRvzXk28f+AXJIycNKWY7UhP38Pt7C9b2LwiP0 Ktx14fGzH82Gc8NE9FTaPyuxgEn360WqXg2xmMYwhoA1SleVvsTTti5Tsi2JNWqJHKz9RwhOmxodys7v ljjsNjlUTexZuwEJ/j273XPodt/FcZaeqWQ3089l0D 3yq7ItpoJ+Jxk7qwlZQ30J5o3MyZSyTF2WFjACgDULf4O7RzcbnXc3iogFb1+HUA3jOzYgG90V4mHgAA DA8PtKVoirYxJ4NXPdQTJQkm7BlvjHjostmDu8LI6IsndDk81S0dPwJCOUvjRyzsOB+e/DAY+AG12Oc2O [file] ICAgICAgICAgICAgICAgICAgICAgICAgICAgICAgIC AgICAgICAgICAgICAgICAgICAgICAgICAgICAgICAgICAgICANCiAgICAgICAgICAgICAgICAgICAgIC AgICAgICAgICAgICAgICAgICAgICAgICAgICAgICAgICAgICAgICAgICAgICAgICAgICAgICAgICAgIC AgICAgICAgICAgICAgICAgICANCiAgICAgICAgICAg ICAgICAgICAgICAgICAgICAgICAgICAgICAgICAgICAgICAgICAgICAgICAgICAgICAgICAgICAgICAg ICAgICAgICAgICAgICAgICAgICAgICAgICAgICANCiAgICAgICAgICAgICAgICAgICAgICAgICAgICAg ICAgICAgICAgICAgICAgICAgICAgICAgICAgICAgIC AgICAgICAgICAgICAgICAgICAgICAgICAgICAgICAgICAgICAgICANCiAgICAgICAgICAgICAgICAgIC AgICAgICAgICAgICAgICAgICAgICAgICAgICAgICAgICAgICAgICAgICAgICAgICAgICAgICAgICAgIC AgICAgICAgICAgICAgICAgICAgICANCiAgICAgICAg ICAgICAgICAgICAgICAgICAgICAgICAgICAgICAgICAgICAgICAgICAgICAgICAgICAgICAgICAgICAg ICAgICAgICAgICAgICAgICAgICAgICAgICAgICAgICANCiAgICAgICAgICAgICAgICAgICAgICAgICAg ICAgICAgICAgICAgICAgICAgICAgICAgICAgICAgIC AgICAgICAgICAgICAgICAgICAgICAgICAgICAgICAgICAgICAgICAgICANCiAgICAgICAgICAgICAgIC AgICAgICAgICAgICAgICAgICAgICAgICAgICAgICAgICAgICAgICAgICAgICAgICAgICAgICAgICAgIC AgICAgICAgICAgICAgICAgICAgICAgICANCiAgICAg ICAgICAgICAgICAgICAgICAgICAgICAgICAgICAgICAgICAgICAgICAgICAgICAgICAgICAgICAgICAg ICAgICAgICAgICAgICAgICAgICAgICAgICAgICAgICAgICANCiAgICAgICAgICAgICAgICAgICAgICAg ICAgICAgICAgICAgICAgICAgICAgICAgICAgICAgIC AgICAgICAgICAgICAgICAgICAgICAgICAgICAgICAgICAgICAgICAgICAgICANCjw/tURbH5rwdMAaff G4H6wuLz8TEc3RMF2qo9LiFEJaGCtgtaDaAsnGEiMfXWHqXxpOAzt0EUtzMH1SfICwO4NrP9QkCYpkWB 9XQUKfMZAlkGVlWYHuEHTzFrL3BRTuTMuxOB7CyNTb LKfbMGEdADObSQ2RMJTnG679lrCcWG2ZVg6PVhVpVH3whq5EGBwyMNSdXunWKto3NMuhWH2UkQLumHSw CWTdYKMZRpAhL3euk6RhRpTrCLCAMElbBP5Of4HkqYAmWJf+Jw7JKN1ew0ZqWOzzOKSiEI4zpk9ILIwU XbMfB7YwaSphJOHeo6qpDNSxKN6jjXUkSVV5ARkru5 LaODAqQ4U0gttmtbitMKBzOEJgEV3lUh3oPKAqXLDoRmMwXXEKRN5SJNJgJJPkeHQoMWIwGPPUQE5BSX huJDU4TFDekzAsqBTkXLacEF4MDUSkqsZuSBiaINAKHLr+Lg1XLO9be4TzTUcjNLZgHF9ffh3JABwNSt ItI0B9nOVbM9H7ZWrnDk1DTGPgQXVyJCyeVMKSHGwl HZ4VQX9ntpP7YM2YiAUtUZXjLHLqiYQaJQr9L98yxLNpXGytFQ3BZGQ+Savannah+Nj1PSBNcZDCjADLcSrMi OWXFLvJuG9TwF2ZMm6ClY8AkAL47tFyiewNeHGodNV0PTG4iMQTsTDSBGF0CwOTruE4jovQhHBGxLXVO WrOeB17xfKUzRPHmTNZ8DSSmPn3VIXReL0HlyxMuhD jklpRyUWPrPLFLKJ0IIEunxtYiuLVbbAicNJ90oFreXS5QVg8YUtJgOH4ldp8KkKNeBl2HMMSkDg4YAA RiDZLiQVIuNZR0NOCgTnAkLGguMTZxXOIeQCW9NCJrCLPaRI8RIiTzQTOwTfW7EBCcOVPmLBBhpg8AIL PmMVJxAzG3MREqRWWiIQOcLBoeXEDaMZOdPPW8DKWd NRRfUD6FGfSqOCGpANC0RLUjJKXnDGGsol0BHOUtGLQpPzj1TISmITJeIQWxNFayGUZdBDGmSnX2DNXj TMNmDB9HNjWeDUQrCEY3AJLnQOQnMQEjzv6QUYHeMRWvZCMtSDFpGNBjFOWrDIjeHFTsQLW4TOlkDRFd WIHkUM8NTnFxKWCcRGHpUOZhLXPpCUHwcd4BVLLiFN ZtXRF1JoXoCVCwJEEjINhsZOJqGPL1MSfuCAKoZSVlLN4ENvPhQPDwAxe1DCQrFBQaDKPnkd9TEFHsYB KsHIk6WZKsIHWhTBOqUSceWZXhAAChAFpmCHAsYUJtNH7PQmDgZWQqSqE2MBufQOMgLEQcgo8JPTAeAH GmDOXxHJBtFJBvBMQyTRkhOIZjNGIfXTS8JUBuUACq EY1HMqKhDYJnBpQ2YlcfMOSvZPEvzj4GIZRmKHIxDcM9QEHwVIDcKCQkXRx0fmWooGSbUId1VT1XO2Ku geIyHvPQLb5Dy775PJXvIRNkRu5ZC0upJo9mMGGeONEEHk6WNXn3AMO5IAs7NZLsVFHrHQBqFZEwTJG6 YPJ4URfsCPJ3YKS+DUawHhC3IAS8Z5M5UWZoOHHyEI Y8ShCxYDb4BCOuEOF1QG4pZIFTUj8+SWdazWVliGuhHLLWXnBoJMJmGQiwKJMZPv6R ID Date Data Source ERYTHROCYTE SEDIMENTATION RATE 01/18/2020 12:00:00 AM EDT eC W1 ([facility]) Name Value Range Interpretation Code Description Data Sumaya rce(s) Supporting Document(s) 26 0-20 ERYTHROCYTE SEDIMENTATION RATE eCW1 ([facility]) ID Date Data Source C REACTIVE PROTEIN QUANTITATIV (At [facility]) 01/18/2020 12:00 :00 AM EDT eCW1 ([facility]) Name Value Range Interpretation Code Description Data Sumaya rce(s) Supporting Document(s) < 0.30 0.00-0.30 C REACTIVE PROTEIN QUANTI TATIV eCW1 ([facility]) ID Date Data Source [id number] 11/16/2019 03:00:37 PM [facility] Name Value Range Interpretation Code Description Data Sumaya rce(s) Supporting Document(s) Progress Note [facility] CESKHz8sHtWASuDc95/BXWynWSNdb1YtDOavLZd5TYdaMWZmC8QyBTT8wO6uKEI7KAjPQgHxXsOxWLA4 lbm [file] DCjtTYNuQcJ3APCqYJqzJdPlGW3AGp2MGzE6CQW6rKQaSk9RTsKgCfGZFgLyRK4YAUk= ID Date Data Source [id number] 11/02/2019 02:40:27 PM EST [facility] Name Value Range Interpretation Code Description Data Sumaya rce(s) Supporting Document(s) Discharge Summary [facility] KYZAEu3mDeURJwTi92/FJIimETYqg7HwCXnjICv1FVvmZLWqW4WgXYG2mA2wCDL8XQmBKzLqPnLjFPJe lbm [file] ICAgICAgICAgICAgICAgICAgICAgICAgICAgICAgICAgICAgICAgICAgICAgICAgICAgICAgICAgICAg ICAgICAgICAgICAgICAgICAgICAgICAgICAgICAgIC AgICAgICAgDQogICAgICAgICAgICAgICAgICAgICAgICAgICAgICAgICAgICAgICAgICAgICAgICAgIC AgICAgICAgICAgICAgICAgICAgICAgICAgICAgICAgICAgICAgICAgICAgICAgICAgDQogICAgICAgIC AgICAgICAgICAgICAgICAgICAgICAgICAgICAgICAg ICAgICAgICAgICAgICAgICAgICAgICAgICAgICAgICAgICAgICAgICAgICAgICAgICAgICAgICAgICAg DQogICAgICAgICAgICAgICAgICAgICAgICAgICAgICAgICAgICAgICAgICAgICAgICAgICAgICAgICAg ICAgICAgICAgICAgICAgICAgICAgICAgICAgICAgIC AgICAgICAgICAgDQogICAgICAgICAgICAgICAgICAgICAgICAgICAgICAgICAgICAgICAgICAgICAgIC AgICAgICAgICAgICAgICAgICAgICAgICAgICAgICAgICAgICAgICAgICAgICAgICAgICAgDQogICAgIC AgICAgICAgICAgICAgICAgICAgICAgICAgICAgICAg ICAgICAgICAgICAgICAgICAgICAgICAgICAgICAgICAgICAgICAgICAgICAgICAgICAgICAgICAgICAg ICAgDQogICAgICAgICAgICAgICAgICAgICAgICAgICAgICAgICAgICAgICAgICAgICAgICAgICAgICAg ICAgICAgICAgICAgICAgICAgICAgICAgICAgICAgIC AgICAgICAgICAgICAgDQogICAgICAgICAgICAgICAgICAgICAgICAgICAgICAgICAgICAgICAgICAgIC AgICAgICAgICAgICAgICAgICAgICAgICAgICAgICAgICAgICAgICAgICAgICAgICAgICAgICAgDQogIC AgICAgICAgICAgICAgICAgICAgICAgICAgICAgICAg ICAgICAgICAgICAgICAgICAgICAgICAgICAgICAgICAgICAgICAgICAgICAgICAgICAgICAgICAgICAg ICAgICAgDQogICAgICAgICAgICAgICAgICAgICAgICAgICAgICAgICAgICAgICAgICAgICAgICAgICAg ICAgICAgICAgICAgICAgICAgICAgICAgICAgICAgIC RpULZlCFCnIKQwJTFaBSRbZBk2A4oxBWSmUKMiEC5hASf7Tk2+WEnFKzUiVOT8jfCruA5RNL5iz1BcNK weQVPju9XaMFd4LJ0NMRPbTEvmLZ4NWGqoem8JSDNkLRJxpJCAa3mjAbTdLAT6JBBcRcyzBI0GMYHrG4 lkcyBbIDUgMCBSIDcgMCBSIDkgMCBSIDExIDAgUiAx QjSeFRYyAFLbHUZNQZA8GTAwMvBwUZlpWT1Lk9KxuXF0RCr+Mq4MVF7yb0UsYHb6DkQtJV4yxr1OVPqW UdUtH9XqyoL0MCVeICIiMi3ZXMEtRVSbeXV7MaVeKAAREeStJ3RubA77HOIWEy3+DQplbmRvYmoNCjQz SFSqy4QwTXf4DY4ZLFPzGSe5uKMrFRyuU1lgoucgXL V4bP9dwtrhCtkeEYCoCNqhOFIDe9kfuArmSSEbNVOkGV1gMi1fOZFwFVRsFlZiENBKYN4FIYIvPBNxrE HfDQRyGVMGOE7FCKhqWRJ6FSVchsBuzKEiSGmpKI8OKKNgwiNlIVVhPBULJUl+Xx5JEN9wh9WjGEc2IA JkUR6moq4AMEeRJjMoC6F3mDGoN9V5QXvsFu4NKYVa GUNdAHWiINJWJJwdIW4CQG5dulR3LY2StHTqVSMfQVGxxUCqSEs6E22fzSImPXvoRJ7HTRZ+Savannah+Pg0K JRMlGBFySGCcCfZgQGBHVnXkP3VoI0QZy5LbS7ZpJT14aBmnpjUbNAqiZL8JDY1sUNNqLYFTHH1FhHYa mS8tagS7AnTvNAVNMlZeA54bfWVdNZFnMQCpWSKwUz 8BSMSwM1UmbtBcgGzhheIdPZCeUFIJQO3TLGmgaeVipWBbmUmmPM28fLmoNI6XZi4CRoHsNF1vbk7IkB GsGk1JYTW8JN7ABCGhLOYcISQsQGB8UMPeTcWfVVseOCQkJDKgAIJ3WHGxJBEoKO6GDrHlIKGdRNS7BU DvLVFsDPSftf7XWXGvBYV4QTG4MeJyYCLsRJRxQMsq LSRaLOXyPTO8HUXsTSAwPP8JOeMpUGHrMTY6KPIjEQLkBKYagt2AMTNqCYWmDrQ8RRRuRTSmYXXpXWfi ZRDrBAC8HFf0ZIRwBNSgPN5LDzLvFURxMDBaTEBiSJXqOAVxpg5CVTCxZRHxNYS7UaEaNKXuYJWeGZht BYFcVFZ9PaY3QKYvTCUnJM4NHsGkVIAsYKO0VZZvNK PyZKPuuv8UKYQoBLAoNxpnEXNhYSFpUNJbNSwnVAKaONK9NDK6YWCiDOFzGW4KVnNsTJBwPVplZPXzLP IlZWLmhe9WQUFsZCNbSFCfCqMwJROyVOBrIQqgNUUsOSQ5ZcOeRHJoQOJtJM8TNyRvIGNoGlAcVCzlYR YyNTVpnv7GEVAxHEJiSHD8LMQmXYIzOWRoLGkyAHOq QYSaSTN9WYFvEKUpNR0LYjJyUDDpMtK0XnAnWKNrMLDsjj7TCMCkPQTtTWkdXLPeXRVwWYKlAGwnWQSi CNCxApT1BBKxLTQnIR7QNbHpBIUqOoX9AwVhXWJoIYJhri2WINIwHXWnNxH8CJHpCZVuMZXwEVptSCUj QMZ8EYS1HWMyPCWsOT4RFxRnEUKwRrVsSUTcXYUiLW Ahoz8YBQUcUHFeDWL1VEMpNTAkHYCwCGnrXRXtLOQ9PVf8URKzNMMoBU2ODpGdUVKtRzWmTPftINUiNQ Duuu4SHTKhPDPiZbLuNuVzDXNqAMFkEMmjCNPnWYN4IuH8USJcCFMnGS6ZPfKiDSFnQqR1CIQnXTKnOE Angt3DRPJxNWSyPiybCEOyGUJfIUVhZFbpFUDaZDW8 VALkPEVlIULqQM4VFqSfKAHzRdbxRQUqXHSxKRHwnu5TYSSjYCB9Vma5BxWxTUWbWRLzBFtjZXTlYYWc Xdo2ADUfCTOnRK5UOhKfDXAwHRQ9RLTwQEZkKROybn4GCNUyRWF9UopvAvCwIMRxGEIeRKofXHQuVWGh VMagZNLhQYElMV6LEkDoOZBoMLNkVkMxZCLkATPmwl 9BJCGvYVH5QEphFOOjAEWuFQUcCUaeLNJqQYX6SSovELPoQFEbXY8STkIpGRNtJBEdAlLgJQDbLABljq 1GdSJgtTfcic2SPFgGTw7LsXnwRET0KWysTk9lmFW4JOMnDRJHZo5GwxIqNUElERYVFOmrGNKbRKQ0EF JaAjxeCoQ6TJFhV7E7OkO9QBKiNnPiXCVzBcomEnC7 Tys7HiUqETFtLrI1YBK0KmMkYACfI9GiVMQiMNJ8PGM+IB6hMLd+Uq8Zc5LgrhX4ryEePVi2PmG5Gs6F BBCOC8DXHx== ID Date Data Source [id number] 11/02/2019 11:58:32 AM [facility] Name Value Range Interpretation Code Description Data Sumaya rce(s) Supporting Document(s) Glucose [Mass/volume] in Capillary blood by Glucometer 123 mg/dL 70- 140 [facility] ID Date Data Source [id number] 11/02/2019 10:00:29 AM [facility] Name Value Range Interpretation Code Description Data Sumaya rce(s) Supporting Document(s) Bicarbonate [Moles/volume] in Serum 28 mmol/L 22-29 [facility] Chloride [Moles/volume] in Serum or Plasma 100 mmol/L 98-107 [facility] Creatinine [Mass/volume] in Serum or Plasma 0.61 mg/dL 0.50-0.90 [facility] Glucose [Mass/volume] in Serum or Plasma 130 mg/dL 70-140 [facility] Potassium [Moles/volume] in Serum or Plasma 4.9 mmol/L 3.4-5.1 [facility] Sodium [Moles/volume] in Serum or Plasma 136 mmol/L 136-145 [facility] Urea nitrogen [Mass/volume] in Serum or Plasma 16 mg/dL 6-20 [facility] Anion gap 3 in Serum or Plasma 8 mmol/L 8-15 [facility] Osmolality of Serum or Plasma by calculation 285 mosm/kg 275-300 [facility] Creatinine/Urea nitrogen [Mass Ratio] in Serum or Plasma 26 [facility] Calcium [Mass/volume] in Serum or Plasma 9.4 mg/dL 8.6-10.0 [facility] Glomerular filtration rate/1.73 sq M pre dicted among non-blacks [Volume Rate/Area] in Serum or Plasma by Creatinine-based formula (MDRD) >6 0 [facility] Glomerular filtration rate/1.73 sq M pre dicted among blacks [Volume Rate/Area] in Serum or Plasma by Creatinine-based formula (MDRD) >60 [facility] ID Date Data Source [id number] 11/02/2019 07:44:21 AM [facility] Name Value Range Interpretation Code Description Data Sumaya rce(s) Supporting Document(s) Glucose [Mass/volume] in Capillary blood by Glucometer 129 mg/dL 70- 140 [facility] ID Date Data Source [id number] 11/02/2019 06:08:59 AM [facility] Name Value Range Interpretation Code Description Data Sumaya rce(s) Supporting Document(s) Bicarbonate [Moles/volume] in Serum 29 mmol/L 22-29 [facility] Chloride [Moles/volume] in Serum or Plasma 100 mmol/L 98-107 [facility] Creatinine [Mass/volume] in Serum or Plasma 0.52 mg/dL 0.50-0.90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 private vehicle. Historian- patient. Disposition decision: 15:17 10/27/2019.HISTORY OF PRESENT ILLNESS Chief Complaint: FEVER and "NOT FEELING WELL". This started about 5 days ago; Intermittent fever, not feeling well since Saturday of last week. Pt had blood transfusion at [facility] last and states she started to not [...] Pain. 2 Clinical Report - Physicians/Mid Levels [facility] Emergency Department [address] [place] [address] Phone #: ext- [phone] 10/27/2019 11:08 [id number] Sex[facility] F : 1980 Age: 39yBack Injury.Back Pain.Pulmonary Embolism.Other Disease.UTI - Urinary Tract Infection.Respiratory Distress.Status Epilepticus.GI Disease.GI Bleeding.Malabsorption syndrome.Hypoxia.Lung Disease.Additional Surgeries:Abd for obstruction.Bariatric Surgery.Bowel resection.Bowel Resection [2016].Cholecystectomy.Feeding Tube Placement.Gastric bypass.Gastric bypass reversal [08/2019].Gastric Resection [2008].GI bleed clipping.G-Tube Placement.Hysterectomy.J-tube placement.J-Tube placement.Life port removed.Lifeport [10/2017].Portacath left chest.Nadege-en-Y gastrojejunostomy [2009].Spinal fusion.Spinal fusion.Medications:Creon Oral (Capsule Delayed Release Particles [id number] unit) 1 capsule, 4x a day, J [...] nausea. 3 Clinical Report - Physicians/Mid Levels [facility] Emergency Department [address] [place] [address] Phone #: ext- [phone] 10/27/2019 11:08 [id number] Sex: F : 1980 Age: 39y Protonix [...] EKG. 4 Clinical Report - Physicians/Mid Levels [facility] Emergency Department [address] [place] [address] Phone #: ext- [phone] 10/27/2019 11:08 Patient: [...] making process.Lactic Acid: (LUISANA: 10/27/2019 15:10) ( [facility] 10/27/2019 15:38) Final results Test Result Flag Units (Reference) LACTIC ACID 2.7 H MMOL/L (0.2 - 2.2)CRP: (LUISANA: 10/27/2019 11:30) ( [facility] 10/27/2019 13:43) Final results Test Result Flag Units (Reference) CRP-HS 34.55 H MG/L (1.00 - 3.00) CDC/S HS-CRP CUT- OFF: RELATIVE RISK: <1.0 mg/LLow 1.0 - 3.0 mg/L Average >3.0 mg/LHigh Optimally, the average of HS-CRP results repeated two weeks apart should be used forrisk assessment.PT/PTT: (LUISANA: 10/27/2019 11:30) ( [facility] 10/27/2019 13:21) Final results Test Result Flag Units (Reference) PROTIME 13.3 SECONDS (11.0 - 15.5) INR 1.00 (0.93 - 1.23) PTT 34.3 SECONDS (24.8 - 36.7) \\BLDo\\INR INTERPRETATION\\BLDx\\ Therapeutic range for Coumadin andrelated oral anticoagulants. -International Normalized Ratio (INR): 2.0 - 3.0 for VenousThrombosis, Pulmonary Embolus, Tissue heart valves, Acute NH Atrial Fibrillation, Valvular heart diseaseand recurrent Systemic [...] IV Contrast Only: (LUISANA: 10/27/2019 12:53) ( MogRcvd 10/27/2019 15:37) In ProgressCT ABDReason(s): Nausea, fever, abd pain, hx of gastric bypass and reversalTRANSPORTATION: S IV? IV?(Yes) O2? Oxygen?(No) Ro: HysterectomyCulture, Urine: (LUISANA: 10/27/2019 12:49) ( MsgRcvd 10/27/2019 12:53) CanceledSOURCE: Urine, Clean CatchChest Portable 1 View: (LUISANA: 10/27/2019 12:49) ( MsgRcvd 10/27/2019 14:39) In ProgressCHEST PORTABLEReason(s): feverTRANSPORTATION: P IV? O2? Oxygen?(No) Room: ED 5 Clinical Report - Physicians/Mid Levels [facility] Emergency Department [address] [place] [address] Phone #: ext- [phone] 10/27/2019 11:08 Patient: NI DIAZ Sex: F : 1980 Age: 39y: [place] [address] PHONE: [phone] FAX: [phone] Name .................. : BASILIO Torres Acct Number.................. : [id number] ROOM. ................. : TR-07 MR Number ................... : [id number] Stay type ............. : E/R Discharge Date......... ... : Admit Date ......... : 10/27/19 Admit Phys .................... : EBENEZER NAGI Date of ....... : 1980 [facility] Phone .................. : [phone] Age ........... ..................... : 39 Film# .................. .:[id number] Sex ................................. : F Unsigned transcriptions are preliminary reports and do not represent a medical or legal document CHEST PORTABLE [id number] COMPLETE:10/27/19 13:04 ARS 36899 Reason(s): fever PORTABLE CHEST X-RAY: COMPARISON: Prior [...] PROCEDURAL CONTROL VALID KIT LOT # _[id number] 10/27/19.1308.NM . . . KIT EXP DATE _06/01/20 6 Clinical Report - Physicians/Mid Levels [facility] Emergency Department [address] [place] [address] Phone #: ext- [phone] 10/27/2019 11:08 Patient: NI DIAZ Sex: F : 1980 Age: 39y/05/09.1308.NM . . .The Influenza A utilizing an [...] 1.3) 7 Clinical Report - Physicians/Mid Levels [facility] Emergency Department [address] [place] [address] Phone #: ext- [phone] 10/27/2019 11:08 Patient: [...] Normal Lactic Acid: (LUISANA: 10/27/2019 11:30) ( [facility] Final results Test Result Flag Units (Reference) LACTIC ACID 3.2 H MMOL/L (0.2 - 2.2) Urinalysis: (LUISANA: 10/27/2019 12:00) ( MogRcvd 10/27/2019 12:38) Final results Test Result Flag [...] Oct 27 2019. Records reviewed from recent [facility] visit, pt with essentially benign labs CXR, pt AMA'ed from ED. 15:Oct 27 2019. s/s c/w sepsis secondary to ascending UTI, mild hypokalemia, ? mid mesenteric internal hernia. Hospitalist here feels pt needs transfer to higher level of care, no TPN at [facility]. awaiting call back from [facility]. 16:06 Oct 27 2019. Pt will be transferred to Dr Hall, hospitalist service, [facility], for further evaluation and treatment. Critical care performed (30 minutes). Time is exclusive of separately billable procedures. Time includes: 8 Clinical Report - Physicians/Mid Levels [facility] Emergency Department [address] [place] [address] Phone #: ext- [phone] 10/27/2019 11:08 Patient: NI DIAZ Sex: F : 1980 Age: 39y direct patient care, patient reassessment, coordination of patient care, interpretation of data (laboratory data, pulse oximetry, chest xrays and prior electrocardiograms), review of patient's medical records, medical consultation and documentation of patient care- see progress notes. Disposition: Benefits, risks and alternatives to transfer explained to patient. Transferred to [facility]. UTI (catheter associated) was not present prior [...] rce(s) Supporting Document(s) ID Date Data Source [id number] 10/27/2019 11:19:00 AM EST [facility] Addenda for NI DIAZ VisitID: [id number] Date: 9:51Pt BC growing Enterobacteriaceae species and serratia marcescens detected via [place], prelimsshowing gram negative rods; Spoke to Jessica at [facility] and faxed to [phone] at 0829(Electronically signed by Lucía Navarrete R.N. - 10/28/2019 9:51)10/29/2019 18:05Pt urine culture growing 10-20,000 Klebsiella Pneumoniae, Pt was transferred [facility] at [facility] faxed to [phone] at 0848; BC growing serratia marcescens and this was faxed to them as wellat [phone](Electronic ally signed by Lucía Navarrete R.N. - 10/29/2019 18:05) Name Value Range Interpretation Code Description Data Sumaya rce(s) Supporting Document(s) ID Date Data Source [id number] 10/29/2019 03:49:09 PM [facility] MR LUMBAR SPINE WITH AND WITHOUT CONTRAS T [id number] RESULTInterpreted by:Kamran Coyne MD10/28/2019 1:25 PM MR LUMBAR SPINE WITH AND WITHOUT CONTRAST [id number] CLINICAL INFORMATION: r/o abscess, infection in L4-L5 [...] rce(s) Supporting Document(s) ID Date Data Source [id number] 10/29/2019 11:12:35 AM [facility] XR ABDOMEN AP ERECT ONLY [id number] RESU LTInterpreted by:Jessica Carlson MDIndication: Patient was supposed to have an upper GI with a small bowel series to evaluate for motility after reversal of Nadege-en-Y gastric bypass.TECHNIQUE: 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 XRAY# F/C TYPECHARLEBOOJE Torres [id number] F 39 10/27/19 10/27/19 [id number] BB2 E/R DATE OF : 1980 M/R# [id number] #: [id number] TR-07 LOCATION: EMERGENCY DEPT [facility] [id number] COMP LETE:10/28/19 02:12 T 00169 PHYSICIAN: EBENEZER LAZAR Name Value Range Interpretation Code Description Data Sumaya rce(s) Supporting Document(s) ID Date Data Source [id number] 10/28/2019 04:47:15 PM [facility] Name Value Range Interpretation Code Description Data Sumaya rce(s) Supporting Document(s) [facility] [id number]/RYZfeIVQth0NiCDbkDIh4ITvaFJYyW4NhYQG7xG4rGPZ3NNmDLgPpZvJpIBH4 [facility] [file] [id number]/RvLp43NSyVK+mp+r0+mF7/UR/cXKf14+H5+Gq4GE+c2i0gzNL7S/[employer] [file] [id number]HEnFr5LRCSlUIxFIdPhHV1BXAv= ID Date Data Source [id number] 10/28/2019 11:17:00 AM EST [facility] [address] [place] [address] PHONE: [phone] FAX: [phone] Name .................. : BASILIO Torres Acct Number.................. : [id number] ROOM. ................. : TR-07 MR Number ................... : [id number] Stay type ............. : E/R Discharge Date......... ... : 10/27/19 Admit Date ......... : 10/27/19 Admit Phys .................... : EBENEZER NAGI Date of ....... : 1980 Family Phys ................... : [facility] Phone .................. : [phone] Age ................................ : 39 Film# .................. .:[id number] Sex ................................. : F Unsigned transcriptions are preliminary reports and do not represent a medical or legal document CT ABD & PELVIS W/ IV ONLY [id number] COMPLETE:10/27/19 15:35 [facility] [address] Reason(s): Nausea, fever, abd pain, hx of [...] imperative reconstructive techniques. Page 1 of 2 [place] [address] PHONE: [phone] FAX: [phone] Name .................. : BASILIO DAN Melissa Acct Number.................. : [id number] ROOM. ................. : TR-07 MR Number ................... : [id number] Stay type ............. : E/R Discharge Date......... ... : 10/27/19 Admit Date ......... : 10/27/19 Admit Phys .................... : EBENEZER NAGI Date of ....... : 1980 Family Phys ................... : [facility] Phone .................. : [phone] Age ................................ : 39 Film# .................. .:[id number] Sex ................................. : F Unsigned transcriptions are preliminary reports and do not represent a medical or legal document CT ABD & PELVIS W/ IV ONLY [id number] COMPLETE:10/27/19 15:35 [facility] [address] Reason(s): Nausea, fever, abd pain, hx of gastric bypass and reversal CT dose: 703.5 mGycm Contrast agent in mL: 75 Isovue 370 Method of administration: Intravenous Electronically Reviewed and Signed By Eleuterio Dukes M.D. , 10/28/19 11:17, [facility] Transcribe Initials: DZ , Transcribe Date: 10/27/19 22:33, Dictation Date: Copy for: EBENEZER Morales via fax Copy for: EMERGENCY DEPT via [facility] Copy for: 710 MED REC DISCHARGED Page 2 of 2 Name Value Range Interpretation Code Description Data Sumaya rce(s) Supporting Document(s) ID Date Data Source [id number] 10/28/2019 11:02:00 AM EST [facility] [address] [place] [address] PHONE: [phone] FAX: [phone] Name .................. : BASILIO Torres Acct Number.................. : [id number] ROOM. ................. : TR-07 MR Number ................... : [id number] Stay type ............. : E/R Discharge Date......... ... : Admit Date ......... : 10/27/19 Admit Phys .................... : EBENEZER NAGI Date of ....... : 1980 Family Phys ................... : [employer] Phone .......... ........ : [phone] Age ................................ : 39 Film# .................. .:[id number] Sex ................................. : F Unsigned transcriptions are preliminary reports and do not represent a medical or legal document CHEST PORTABLE [id number] COMPLETE:10/27/19 13:04 ARS 12490 Reason(s): fever PORTABLE CHEST X-RAY: COMPARISON: Prior [...] rce(s) Supporting Document(s) ID Date Data Source [id number] 10/28/2019 07:43:27 AM [facility] Value Range Interpretation Code Description Data Sumaya rce(s) Supporting Document(s) Natriuretic peptide.B prohormone N-Terminal [Mass/volu me] in Serum or Plasma 501 pg/mL <125 H [facility] ID Date Data Source [id number] 10/28/2019 07:43:27 AM [facility] Value Range Interpretation Code Description Data Sumaya rce(s) Supporting Document(s) C reactive protein [Mass/volume] in Serum or Plasma 91.2 mg/L <8.0 H [facility] ID Date Data Source [id number] 10/28/2019 07:43:27 AM [facility] Value Range Interpretation Code Description Data Sumaya rce(s) Supporting Document(s) Ferritin [Mass/volume] in Serum or Plasma 69 ng/ml 13-150 [facility] ID Date Data Source [id number] 10/28/2019 07:43:27 AM [facility] Value Range Interpretation Code Description Data Sumaya rce(s) Supporting Document(s) Albumin [Mass/volume] in Serum or Plasma by Bromocresol green (BCG) dye binding method 2.9 g/dL 3.5-5.2 [facility] Bilirubin.total [Mass/volume] in Serum or Plasma 0.9 mg/dL <1.2 [facility] Calcium [Mass/volume] in Serum or Plasma 7.8 mg/dL 8.6-10.0 L [facility] Chloride [Moles/volume] in Serum or Plasma 105 mmol/L 98-107 [facility] Creatinine [Mass/volume] in Serum or Plasma 0.67 mg/dL 0.50-0.90 [facility] Glucose [Mass/volume] in Serum or Plasma 107 mg/dL 70-140 [facility] Alkaline phosphatase [Enzymatic activity/volume] in Serum or Plasma 205 U/L 35-104 H [facility] Potassium [Moles/volume] in Serum or Plasma 3.3 mmol/L 3.4-5.1 L [facility] Protein [Mass/volume] in Serum or Plasma 5.2 g/dL 6.4-8.3 L [facility] Sodium [Moles/volume] in Serum or Plasma 136 mmol/L 136-145 [facility] Aspartate aminotransferase [Enzymatic activity/volume] in Serum or Plasma 25 U/L <32 [facility] Urea nitrogen [Mass/volume] in Serum or Plasma 8 mg/dL 6-20 [facility] Osmolality of Serum or Plasma by calculation 281 mosm/kg 275-300 [facility] Creatinine/Urea nitrogen [Mass Ratio] in Serum or Plasma 11 [facility] Bicarbonate [Moles/volume] in Serum 21 mmol/L 22-29 L [facility] Alanine aminotransferase [Enzymatic activity/volume] in Seru m or Plasma 14 U/L <33 [facility] Anion gap 3 in Serum or Plasma 11 mmol/L 8-15 [facility] Albumin/Globulin [Mass Ratio] in Serum or Plasma 1.0 [facility] Glomerular filtration rate/1.73 sq M pre dicted among non-blacks [Volume Rate/Area] in Serum or Plasma by Creatinine-based formula (MDRD) >6 0 [facility] Glomerular filtration rate/1.73 sq M pre dicted among blacks [Volume Rate/Area] in Serum or Plasma by Creatinine-based formula (MDRD) >60 [facility] ID Date Data Source [id number] 10/28/2019 07:43:27 AM [facility] Name Value Range Interpretation Code Description Data Sumaya rce(s) Supporting Document(s) Magnesium [Mass/volume] in Serum or Plasma 1.7 mg/dL 1.6-2.6 [facility] ID Date Data Source [id number] 10/28/2019 08:04:02 AM [facility] Name Value Range Interpretation Code Description Data Sumaya rce(s) Supporting Document(s) Erythrocyte sedimentation rate 18 mm/hr <20 [facility] ID Date Data Source [id number] 10/28/2019 08:04:13 AM [facility] Name Value Range Interpretation Code Description Data Sumaya rce(s) Supporting Document(s) Leukocytes [#/volume] in Blood by Automated count 5.0 10*3/uL 4-10 [facility] Erythrocytes [#/volume] in Blood by Automated count 3.70 10*6/uL 4.1- 5.3 L [facility] Hemoglobin [Mass/volume] in Blood 8.9 g/dL 11.5-15.5 [facility] Hematocrit [Volume Fraction] of Blood by Automated count 27.7 % 3 6-45 L [facility] Erythrocyte mean corpuscular volume [Entitic volume] by Auto mated count 74.9 fL 80-96 L [facility] Erythrocyte mean corpuscular hemoglobin [Entitic mass] by Automated count 24.1 pg 27-33 L [facility] Erythrocyte mean corpuscular hemoglobin concentration [Mass/volume] by Automated count 32.2 g/dL 32.0-36.0 [facility] E[facility]throcyte distribution width [Ratio] by Automated count 18.4 % 11.5-14.5 H [facility] Platelets [#/volume] in Blood by Automated count 250 10*3/uL 150-400 [facility] Differential cell count method - Blood [facility] Neutrophils/100 leukocytes in Blood by Automated count 52 % [facility] Lymphocytes/100 leukocytes in Blood by Automated count 4 % [facility] Monocytes/100 leukocytes in Blood by Automated count 8 % [facility] Basophils/100 leukocytes in Blood by Automated count 1 % [facility] Neutrophils [#/volume] in Blood by Automated count 2.60 10*3/uL 1.8-7 .0 [facility] Lymphocytes [#/volume] in Blood by Automated count 0.20 10*3/uL 1.2-4 .0 L [facility] Monocytes [#/volume] in Blood by Automated count 0.40 10*3/uL 0-0.8 [facility] Basophils [#/volume] in Blood by Automated count 0.05 10*3/uL 0-0.2 [facility] Band form neutrophils/100 leukocytes in Blood by Manual count 34 % [facility] REVIEWED BY TECH 6509 Metamyelocytes/100 leukocytes in Blood by Manual count 1 % [facility] Band form neutrophils [#/volume] in Blood by Manual count 1.70 10*3 /uL 0-0.6 H [facility] Metamyelocytes [#/volume] in Blood by Manual count 0.05 10*3/uL 0-0 H [facility] Anisocytosis [Presence] in Blood by [facility] Elliptocytes [Presence] in Blood by [facility] Microcytes [Presence] in Blood by [facility] Spherocytes [Presence] in Blood by [facility] ID Date Data Source [id number] 10/28/2019 10:30:51 AM [facility] Name Value Range Interpretation Code Description Data Sumaya rce(s) Supporting Document(s) Iron [Mass/volume] in Serum or Plasma 15 ug/dl 37-145 [facility] Transferrin [Mass/volume] in Serum or Plasma 204 mg/dL 200-360 [facility] Iron binding capacity [Mass/volume] in Serum or Plasma 283 ug/dl 228 -428 [facility] Iron saturation [Mass Fraction] in Serum or Plasma 5.0 % 20-55 [facility] ID Date Data Source [id number] 10/28/2019 01:25:48 PM [facility] Name Value Range Interpretation Code Description Data Sumaya rce(s) Supporting Document(s) Phosphate [Mass/volume] in Serum or Plasma 2.8 mg/dL 2.5-4.5 [facility] [facility] ID Date Data Source [id number] 10/28/2019 07:06:26 AM [facility] Name Value Range Interpretation Code Description Data Sumaya rce(s) Supporting Document(s) Lactate [Moles/volume] in Serum or Plasma 1.8 mmol/l 0.5-2.2 [facility] ID Date Data Source [id number] 10/28/2019 04:47:41 AM [facility] CT ABDOMEN PELVIS WITH CONTRAST [id number] AL RESULTInterpreted by:ELISEO Rae INFORMATION: Exam: CT [...] rce(s) Supporting Document(s) ID Date Data Source [id number] 11/02/2019 10:30:52 AM EST [facility] Service Cmnt XXX-Imp : LT HANDMicroorgan ism XXX Cult : No growth (qualifier value) Name Value Range Interpretation Code Description Data Sumaya rce(s) Supporting Document(s) ID Date Data Source [id number] 11/02/2019 10:30:52 AM [facility] Service Cmnt XXX-Imp : RT HANDMicroorgan ism XXX Cult : No growth (qualifier value) Name Value Range Interpretation Code Description Data Sumaya rce(s) Supporting Document(s) ID Date Data Source [id number] 10/28/2019 12:09:24 AM [facility] Name Value Range Interpretation Code Description Data Sumaya rce(s) Supporting Document(s) History and Physical [facility] JSHOOg1kByHPQjWk28/WEOtdCIAof5ZoWEpmASa2GRczYDKuI0SsRCD4zO0qYCG0EUxDSsSaRbTaHQN7 lbm PrXhzMXzJpJMLtMlrAMwDqHOmlBtndeEWgTG5UaLT4ADDxJ62qCTBuAOKvR3BzKMG2LND+Gx6BTEExnZ GqBJ7UWksJ7K2zedvXCv7mhQ/PwrTZJ7Wibc+TkjLn4vUTC0VkLWAK3lVnhuNlNHrBjTS54735xcdKXq l8e4CuYiKkA+8bGfV72zz9QFv168vyE/qWZZnsT/3P SEuUuG5389/M+pSPyD8o/0J7HK6xoSoAcu/Jh0u5Gi/4/krsu9GZLs5jFoWOa6mVzYTTxMTpeDpx5sUp BP9B87RgG/IkTw0hT/POfHpyeHJkbNu3/vy13X541mrG0+eFpQuX6cVCj61dY9+oIeSB1NKEvtMalyU6 nfBXoIaImYumVfTpqpX8R3uu48C/BfSEf2nT+ShF+i oIaZDfEpNyy8VwHoJKSe6u3EefK7jygLOgLbjiOi/vWzX9uXbQgODIpja66LW4ow59SMnynYTZ/hqX0p WsSHgo8E+LKIbVkXlHtVvQlR2HL9jfkRI3JOee2d17VimLL4mB9GS9DK4kNekgnn+Sl2XPuEWpDsAQJn SezMH77/UyJ5NoO+PtB/l46CwveLWqLCa3yZh1+X7Y vUgH92XElfy7XwAmXyP2VmOxk76Gcsn5z7wijD0T7xvVig4fC9fo9Fp5EwHSuGbbHQT8tSX9tp97NXqk 1/ry+5UiD0WKBGsb4lJIxYwFCkqNooSuVt3mmEdX7ZCIkL8zWpCozFrsUb5HdfMOCk2rjyjqVR2HhXl7 o8wujqa3zUM73GYL/CbRDHdKZKXMMGSH8/PJNEWnGE Hernandez+II4x/mj9OR2FUdLIBujGwUaCNRLBtKn+RfL0FZU6RHDDb93xqjC6Ttxy7bwRdPpxdw3um9Y+TCMit [file] AgICAgICAgICAgICAgICAgICAgICAgICAgICAgICAg DKIkZZBrWGIyPNVfIFYsXNHrELNiSAXqMTRsMGJsUZFyLTVuBICiZYYcVLChBU5YZYTpNNHxIIVgTNRn ICAgICAgICAgICAgICAgICAgICAgICAgICAgICAgICAgICAgICAgICAgICAgICAgICAgICAgICAgICAg KRHdXQEdCNXmQRRkIUPjLSKvKBCxJSHcRSOhED5CAP AgICAgICAgICAgICAgICAgICAgICAgICAgICAgICAgICAgICAgICAgICAgICAgICAgICAgICAgICAgIC VgHRDuQBPmDPVdRQNkMZVkOSEkJRBwFJFqNLQtJWTsCLFxNGKdDZ7GBIErOFEmAZXtOQAhECXgUBLcAX AgICAgICAgICAgICAgICAgICAgICAgICAgICAgICAg VOCyUJBkBIXjHPHqNHSdHIZgBXAtCDPzPHEfPYFlPAIfKUDaYATfXOBoWDQiAVYsLA3YKHObAYVmFGGp ICAgICAgICAgICAgICAgICAgICAgICAgICAgICAgICAgICAgICAgICAgICAgICAgICAgICAgICAgICAg ICAgICAgICAgICAgICAgICAgICAgICAgICAgICAgIA 0KICAgICAgICAgICAgICAgICAgICAgICAgICAgICAgICAgICAgICAgICAgICAgICAgICAgICAgICAgIC LjVJWnWJHeDARbGXEgDOYmCJNzMBKzIVPjEXFqJTWsSCOjARKaUGJpXX9DKAQkRWJlNIVkQFKoHPPxDG AgICAgICAgICAgICAgICAgICAgICAgICAgICAgICAg OATxBVWrIJCvMMWiYRXlQWQnRRFtJQIpGSPxBIHbUZMwLGJaAYNaTCSaYQVcTNYtMJGmRQ3LLKMxOKFm ICAgICAgICAgICAgICAgICAgICAgICAgICAgICAgICAgICAgICAgICAgICAgICAgICAgICAgICAgICAg ICAgICAgICAgICAgICAgICAgICAgICAgICAgICAgIC ReWV9FVLFwMUKvQCJtJBOaQOZbULKzMVAgXQWkIQIbRBWyDCIpPNIoURAjTTQnIRJyVWUuIGArKRHzOV YiAQVfOCIcTSFyBJYkJXGmPXEhAJHpLGZlHFTwEVZgKABjLABnEYJvFRXwPX7INTPjWLKtWEAkGPWtGN AgICAgICAgICAgICAgICAgICAgICAgICAgICAgICAg ERRoVNZaTKAbUOTgZFQeFDXzNOQkHBSqYJOvDJSuYIQsPMBkZQKwPRElCHDjTJSfLTYaDGNxER4XIF23 oSDkx3U0CRMtNX1ykfg/Vu2OHAdsmqHppTMfWL5TGdAmUG9lao4EMwVeVT9keb7IDCiTNiWxM3Y9rSQz ACLcHAMMAhJuZ13eWRdgAl66TZwjXSJcTaSeZKq9Eq 2FTgVbG6kbIJXuJmB4KQWaZrZ8PQHmIrS4TQHmLmOpPZZeORPuVAWmMKQLMLT6AVBhIuWfYhYwPNThKO 2IVRMiB289gsUoZx4FIa9CLnBjQZ1nif5XNhMlOHCxUmsCUkp4QEgnWA2DkDAtjEPtMKWhGIFXZjBgF0 iei9JjGoSqDKQGGGbeYQ3Ke8FqzDZkTRu+Id6PWD1p k4IoJYsvYSNuVQ9kmd8LXNbLEbJkG5NnrLbgQGdzONCilDZNHQCbMRRlMACiZPeiYM6POHJ0XXBwOt7n EAXlJRX2OsX3FECMTZ0XSMCiXJNmvWBmKLLzAZXKCI0OBSwvQAC9KDTteyWekCAyVWhrIK0FLXUyzlDa MzQgMCBSDQo+Um7LMF0qu0PbCWueNhZgTZ8xyi1TNW tKNbEdY6F4tWYqV0X3CFznBg6TUQCzUIIcSjZgEOWTKZzmTD2ELK4ybjB6SI0YhGMsMSHzJPSgoLPjKK e2O79kzHZfEQcyJA3URJX+Savannah+Ry0ZXHSoFJRrSJDvFmHoVBDOVfOoD9JbL1MYx0OtU9UgNR66zTownk BkOPnkXG4RDP2rDDLuHQSUJP6JtCUdnW6umfKlBBLg VTMYGkBjL11omJTnVUIuKQImBFWtZy4YGKBtY3YqzfVvnWmdgsKcJSAaYLHXTM3MPFfderKvcMTxgGmh GO89eWejYV3JKh3HEnXyLN7xjv8MtNJaGd4VCZTdZi6FCJJhMMBqNFAnQMQ9CDDoZtZxKAyfVMKmCIPp IKY2OUNlDAFvGW2IJuSrLUFzNHAiPIuhPWOhBOSkwd 3ZVSXzIME2SNc5KfSpBCJfAVLvYApqJZBdYJBtZNU0BPXxCIFrXY6LTeBjCBSqGCK7MuTfJSHxUYZwbh 5TGLWcRBDbXFtxHeNfMHObCYLaUFlhDEXxJID9VDzaCRIeMSUjFZ4ONfQoTAUeSFdsTFVyWNYdJURqmx 7QMVDqNRJjPNS4NUKcVVCjAJLyPNaeQTAlPEEqWbT1 QOLkQUXlHV4VCuIiOPLsAUErBIXsNEViIEJcem9QBNMbNBAaBwV3UtFkINGvXFYfRWpfCSPoDVNkKCY1 EOKuUJWzJS5OAnOoVYBdYfK8ZQGgZWYpHDTzbs3MZARmUYRuZvd2VDXwVGAcIIEiDFttRYTgJDV3GZq4 UKWwWMRaIN4YPqTcSIToSiG0MMPyCOVqGYNqzp8YEP ZfBEOcNgf6USNmKNNcRAOgGGpoVTPfBLA2XBKfCAUlBQSbDV8POdOcTBDrPyazQMkeKSOyCBNxar2FXA XoZKDpPCXgTFKzZBQqNSVdITsfNBTzJXH4WIx7RWPoZOJsLG3QZjBzGQKgRfwbIJDoKTCzPRYpow2EBT CkKYEjTUK1KFFiOPElJOBtYUqpCUCrUAZaPFQ2LFLw CSOrQL2OYzRzQSUzQECsQNRfUKMgTGFxlw4UZEAdXKU4VFK1TVXiLRZiOLCwWZnhSGPxNNZiFqKuMRTz OTClDJ8IIlTmAHIzGKT5JsIyVBFcHHGyql9HRQDbQHO3CazmDZIvRWSvRTCuSWhjVPHpCYZiEXC8HSOf FCEkMB7NIiGlUPQzRXOwIUCjJXVzRGGjzv6DRWFxFL H4JeHcPgRqKQPgXXItKWnkQLPyTYX2WNlqAEFsXEJrHK7LPcRaBVGtNSNjALZpLKKsXYExxs4QLHBcXE T6OEM7LwAwJJPbFDYjOSh1puUzaBVeXSe9HJ6HC6NlqrReQztGAj8Ko622GIK3RRDbFs6VO2ssGw3cRB IfKBPTAm5MMQz6SJLyNSy5ROYjSQPxJLKaVMrwZoxl SYSeNGw3Vbo6Ygq+WLmnVmWjJVbdQXRoEoY0W0HcT4A4CQSpOmS3RWwdRxfzOe5jEQHKGp6+DQpzdGFy fSdmUSRHSfA7EFGyFVvuDOSKLi9V ID Date Data Source [id number] 10/27/2019 11:41:17 PM [facility] Name Value Range Interpretation Code Description Data Sumaya rce(s) Supporting Document(s) Glucose [Mass/volume] in Capillary blood by Glucometer 83 mg/dL 70- 140 [facility] ID Date Data Source [id number] 10/29/2019 12:22:07 PM [facility] Service Cmnt XXX-Imp : Microorganism XXX Cult : 30,000 col/mlIndigenous microorganisms including beta hemolytic Streptococcus group B.(NOTE)Additional testing was performed to rule out a pathogen. Name Value Range Interpretation Code Description Data Sumaya rce(s) Supporting Document(s) ID Date Data Source [id number] 10/27/2019 10:50:55 PM [facility] Name Value Range Interpretation Code Description Data Sumaya rce(s) Supporting Document(s) Color of Urine [facility] Clarity of Urine [facility] Specific gravity of Urine by Refractometry automated 1.020 1.003 -1.030 [facility] pH of Urine by Automated test strip 6.0 5.0-8.0 [facility] Protein [Mass/volume] in Urine by Automated test strip Neg [facility] Glucose [Mass/volume] in Urine by Automated test strip Neg [facility] Ketones [Mass/volume] in Urine by Automated test strip Neg [facility] Bilirubin.total [Presence] in Urine by Automated test strip Negative [facility] Hemoglobin [Presence] in Urine by Automated test strip Neg [facility] Leukocyte esterase [Presence] in Urine by Automated test strip Negative [facility] Nitrite [Presence] in Urine by Automated test strip Negati [facility] Leukocytes [#/area] in Urine sediment by Automated count 5 /HPF 0 -5 [facility] Erythrocytes [#/area] in Urine sediment by Automated count 0-3 [facility] Bacteria [#/area] in Urine sediment by Automated count Non e [facility] Epithelial cells.squamous [#/area] in Urine sediment by Auto mated count 1 /HPF None [facility] ID Date Data Source [id number] 10/27/2019 03:38:00 PM [facility] Name Value Range Interpretation Code Description Data Sumaya rce(s) Supporting Document(s) Lactate [Moles/volume] in Serum or Plasma 2.7 MMOL/L 0.2 - 2.2 H [facility] ID Date Data Source [id number] 10/27/2019 01:08:00 PM [facility] Value Range Interpretation Code Description Data Sumaya rce(s) Supporting Document(s) Influenza virus A Ag [Presence] in Nasopharynx by Immunoassa y NEGATIVE NORMAL: NEGATIVE [facility] Influenza virus B Ag [Presence] in Nasopharynx by Immunoassa y NEGATIVE NORMAL: NEGATIVE [facility] NEGATIVENEGATIVE PROCEDURAL CO NTROL VALID KIT LOT # _[id number] 10/27/19.1308.NM . . . KIT EXP DATE _06/01/20 10/27/19.1308.NM . . .The Influenza A & B assay is a rapid molecular in vitro diagnostic testutilizing an isothermal nucleic acid amplification technology for thequalitative detection of influenza A and B viral RNA.Negative results do not preclude influenza virus infection and should not beused as the sole basis for diagnosis, treatment or other patient managementdecisions. ID Date Data Source [id number] 10/27/2019 12:38:00 PM EST [facility] Name Value Range Interpretation Code Description Data Sumaya rce(s) Supporting Document(s) [facility] COLOR ramos NORMAL: Yellow [facility] CLARITY clear NORMAL: Clear [facility] sp[facility] Specific gravity of Urine by Test strip 1.020 1.001 - 1.030 [facility] pH 5 5 - 9 [facility] Glucose [Mass/volume] in Urine by Test strip NORM N[facility]AL: [facility] Bilirubin.total [Presence] in Urine by Test strip 1 NORMAL: Negative [facility] Ketones [Presence] in Urine by Test strip 5 NORMAL: Negative [facility] Protein [Mass/volume] in Urine by Test strip 100 NORMAL: Negat lucia [facility] Nitrite [Presence] in Urine by Test strip POS NORMAL: Negative [facility] BLOOD 10 NORMAL: Negative [facility] Leukocyte esterase [Presence] in Urine by Test strip 500 DELANO L: Negative [facility] Urobilinogen [Mass/volume] in Urine by Test strip 4 less tenisha n 1.0 mg/dL [facility] MICROSCOPIC See Below [facility] ital WBC 7 - 10 NORMAL: NONE SEEN A [facility] EPITHELIAL FEW NORMAL: NONE SEEN [facility] Bacteria [Presence] in Urine sediment by Light microscopy 1+ SMALL NORMAL: NONE SEEN [facility] Mucus [Presence] in Urine sediment by Light microscopy 2+ NOR MAL: NONE SEEN A [facility] ID Date Data Source [id number] 10/29/2019 07:32:00 AM EST [facility] [id number]@10/29/19 0732: Urine ID Charge add ed. RFLXG = CHGURID. Name Value Range Interpretation Code Description Data Sumaya rce(s) Supporting Document(s) Urine culture result Greater than 100,000 CFU/ML Group B strep n o senst done [facility] Bacteria identified in Urine by Culture [facility] [place] count 10,000 - 20,000 [facility] ID Date Data Source [id number] 10/29/2019 07:32:00 AM EST [facility] [id number]@10/29/19 0732: Urine ID Charge add ed. RFLXG = CHGURID. Name Value Range Interpretation Code Description Data Sumaya rce(s) Supporting Document(s) TRIMETHOPRIM/SULFAMETHOXAZOLE <2/38 Recio sceptible. Indicates for microbiology susceptibilities only. [facility] Amoxicillin+Clavulanate [Susceptibility] by Minimum inhibitory concentration (ZHANE) <8/4 Susceptible. Indicates for microbiology s usceptibilities only. [facility] Ampicillin [Susceptibility] by Minimum inhibitory concentration (ZHANE) >16 Resistant. Indicates for microbiology susceptibilities only. [facility] Ampicillin+Sulbactam [Susceptibility] by Minimum inhib itory concentration (ZHANE) <8/4 Susceptible. Indicates for microbiology suscepti bilities only. [facility] Cefotaxime [Susceptibility] by Minimum inhibitory concentration (ZHANE) <2 Susceptible. Indicates for microbiology susceptibilities only. [facility] Ceftriaxone [Susceptibility] by Minimum inhibitory concentration (ZHANE) <1 Susceptible. Indicates for microbiology susceptibilities only. [facility] Ciprofloxacin [Susceptibility] by Minimum inhibitory concentrati on (ZHANE) <1 Susceptible. Indicates for microbiology susceptibilities only. [facility] Ertapenem [Susceptibility] by Minimum inhibitory concentration ( ZHANE) <0.5 Susceptible. Indicates for microbiology susceptibilities only. [facility] Gentamicin [Susceptibility] by Minimum inhibitory concentration (ZHANE) <2 Susceptible. Indicates for microbiology susceptibilities only. [facility] Imipenem [Susceptibility] by Minimum inhibitory concentration (M IC) <1 Susceptible. Indicates for microbiology susceptibilities only. [facility] Nitrofurantoin [Susceptibility] by Minimum inhibitory concentrat ion (ZHANE) <32 Susceptible. Indicates for microbiology susceptibilities only. [facility] Tetracycline [Susceptibility] by Minimum inhibitory concentratio n (ZHANE) <4 Susceptible. Indicates for microbiology susceptibilities only. [facility] Tobramycin [Susceptibility] by Minimum inhibitory concentration (ZHANE) <4 Susceptible. Indicates for microbiology susceptibilities only. [facility] Levofloxacin [Susceptibility] by Minimum inhibitory concentratio n (ZHANE) <2 Susceptible. Indicates for microbiology susceptibilities only. [facility] Cefepime [Susceptibility] by Minimum inhibitory concentration (M IC) <8 Susceptible. Indicates for microbiology susceptibilities only. [facility] Piperacillin+Tazobactam [Susceptibility] by Minimum inhibitory concentration (ZHANE) <16 Susceptible. Indicates for microbiology s usceptibilities only. [facility] ID Date Data Source [id number] 10/29/2019 10:08:00 AM [facility] Name Value Range Interpretation Code Description Data Sumaya rce(s) Supporting Document(s) CULTURE URINE [facility] spital _CULTURE URINE_ Specimen site Narrative R [facility] Result: TEST PERFORMED AT [facility] [address] [place] [address] IA# [id number] SEE SCANNED REPORT ID Date Data Source [id number] 10/29/2019 08:18:00 AM EST [facility] [id number] LINE [id number] CALLED TO NEMO Thomas BY NÉSTOR, RESULTS READBACKGRAM STAIN = GRAM NEGATIVE RODSCALLED TO ZENIA ([facility]) 10/28/19 AT 0220 BY [facility]. RESULT READBACK.GROWTH IN AEROBIC AND ANAEROBIC BOTTLES.SERRATIA MARCESCENS Name Value Range Interpretation Code Description Data Sumaya rce(s) Supporting Document(s) ID Date Data Source [id number] 10/29/2019 08:18:00 AM EST [facility] [id number] LINE [id number] CALLED TO NEMO Thomas BY NÉSTOR, RESULTS READBACKGRAM STAIN = GRAM NEGATIVE RODSCALLED TO ZENIA ([facility]) 10/28/19 AT 0220 BY [facility]. RESULT READBACK.GROWTH IN AEROBIC AND ANAEROBIC BOTTLES.SERRATIA MARCESCENS Name Value Range Interpretation Code Description Data Sumaya rce(s) Supporting Document(s) TRIMETHOPRIM/SULFAMETHOXAZOLE <2/38 Recio sceptible. Indicates for microbiology susceptibilities only. [facility] Amoxicillin+Clavulanate [Susceptibility] by Minimum inhibitory concentration (ZHANE) >16/8 Resistant. Indicates for microbiology rani ceptibilities only. [facility] Ampicillin [Susceptibility] by Minimum inhibitory concentration (ZHANE) >16 Resistant. Indicates for microbiology susceptibilities only. [facility] Ampicillin+Sulbactam [Susceptibility] by Minimum inhib itory concentration (ZHANE) >16/8 Resistant. Indicates for microbiology susceptibi lities only. [facility] Cefotaxime [Susceptibility] by Minimum inhibitory concentration (ZHANE) <2 Resistant. Indicates for microbiology susceptibilities only. [facility] Ceftriaxone [Susceptibility] by Minimum inhibitory concentration (ZHANE) <1 Resistant. Indicates for microbiology susceptibilities only. [facility] Ciprofloxacin [Susceptibility] by Minimum inhibitory concentrati on (ZHANE) <1 Susceptible. Indicates for microbiology susceptibilities only. [facility] Ertapenem [Susceptibility] by Minimum inhibitory concentration ( ZHANE) <0.5 Susceptible. Indicates for microbiology susceptibilities only. [facility] Gentamicin [Susceptibility] by Minimum inhibitory concentration (ZHANE) <2 Susceptible. Indicates for microbiology susceptibilities only. [facility] Imipenem [Susceptibility] by Minimum inhibitory concentration (M IC) <1 Susceptible. Indicates for microbiology susceptibilities only. [facility] Tetracycline [Susceptibility] by Minimum inhibitory concentratio n (ZHANE) >8 Resistant. Indicates for microbiology susceptibilities only. [facility] Tobramycin [Susceptibility] by Minimum inhibitory concentration (ZHANE) <4 Susceptible. Indicates for microbiology susceptibilities only. [facility] Levofloxacin [Susceptibility] by Minimum inhibitory concentratio n (ZHANE) <2 Susceptible. Indicates for microbiology susceptibilities only. [facility] Cefepime [Susceptibility] by Minimum inhibitory concentration (M IC) <8 Susceptible. Indicates for microbiology susceptibilities only. [facility] Piperacillin+Tazobactam [Susceptibility] by Minimum inhibitory concentration (ZHANE) <16 Resistant. Indicates for microbiology rani ceptibilities only. [facility] ID Date Data Source [id number] 10/28/2019 02:22:00 AM EST [facility] [address] HAYDEE LINECALLED TO ZENIA ([facility]) 10/28/19 AT 0220 BY [email or web address]. RESULT READBACK.The [employer] BCID Panel is a qualitative multiplexednucleic acid-based [...] multiple mechanisms.A Not detected result for the UGOBEArray antimicrobialresistance gene assays does not indicate antimicrobialsusceptibility. Subculturing and standard susceptibilitytesting of isolates is requried to determine antimicrobialsusceptibility.Results from this test must be correlated with the clinicalhistory, epidemiological data,and otherdata available to theclinician evaluating the patient.Enterobacteriaceae speciesSerratia marcescens detected Name Value Range Interpretation Code Description Data Sumaya rce(s) Supporting Document(s) ID Date Data Source [id number] 10/29/2019 10:03:00 AM [facility] Name Value Range Interpretation Code Description Data Sumaya rce(s) Supporting Document(s) CULTURE BLOOD [facility] spital _CULTURE BLOOD_{ PRELIM G(-)RODS, S.MARCESCENSCALLED TO JUANIS Pathak 10/28/19 @0226 GBT ID Date Data Source [id number] 10/27/2019 12:32:00 PM [facility] Name Value Range Interpretation Code Description Data [facility] Supporting Document(s) COMPREHENSIVE METABOLIC PANEL [facility] COMPREHENSIVE METABOLIC PANEL Sodium [Moles/volume] in Serum or Plasma 141 mEq/L 134 - 153 [facility] Potassium [Moles/volume] in Serum or Plasma 3.3 mEq/L 3.6 - 5.0 L [facility] Chloride [Moles/volume] in Serum or Plasma 105 mEq/L 98 - 107 [facility] Carbon dioxide, total [Moles/volume] in Serum or Plasma 23 MEQ/L 22 - 30 [facility] Glucose [Mass/volume] in Serum or Plasma 112 MG/DL 65 - 110 H [facility] BUN 9 MG/DL 7 - 21 [facility] Creatinine [Mass/volume] in Serum or Plasma 0.8 MG/DL 0.7 - 1.5 [facility] BUN/CREAT 11 8 - 27 [facility] Protein [Mass/volume] in Serum or Plasma 7.0 G/DL 6.3 - 8.2 [facility] Albumin [Mass/volume] in Serum or Plasma 3.9 G/DL 3.9 - 5.0 [facility] Globulin [Mass/volume] in Serum by calculation 3.1 GM/DL 2.4 - 3.2 [facility] A/G RATIO 1.3 0.8 - 2.0 [facility] Calcium [Mass/volume] in Serum or Plasma 9.5 MG/DL 8.4 - 10.2 [facility] Bilirubin.total [Mass/volume] in Serum or Plasma 0.8 MG/DL 0.2 - 1.3 [facility] Alkaline phosphatase [Enzymatic activity/volume] in Serum or Plasma 192 U/L 38 - 126 H [facility] Aspartate aminotransferase [Enzymatic activity/volume] in Serum or Plasma 25 U/L 5 - 40 [facility] Alanine aminotransferase [Enzymatic activity/volume] in Seru m or Plasma 13 U/L 7 - 56 [facility] Anion gap 3 in Serum or Plasma 13.0 mmol/L 8.0 - 16.0 [facility] AGE 39 yrs [facility] Hospit al NON-AA GFR 84 mL/min [facility] Hospi gregg AFR AMER GFR 102 mL/min [facility] Ho spital Male GFR In terprentation [...] >32 mL/min Normal ID Date Data Source [id number] 10/27/2019 12:29:00 PM [facility] Name Value Range Interpretation Code Description Data Sumaya rce(s) Supporting Document(s) Lipase [Enzymatic activity/volume] in Serum or Plasma 62 U/L 13 - 60 H [facility] ID Date Data Source [id number] 10/27/2019 12:30:00 PM [facility] Name Value Range Interpretation Code Description Data Sumaya rce(s) Supporting Document(s) CBC W/AUTOMATED DIFF [facility] COMPLETE BLOOD COUNT Leukocytes [#/volume] in Blood by Automated count 7.9 10^3/uL 4.2 - 1 1.0 [facility] Erythrocytes [#/volume] in Blood by Automated count 4.68 10^6/uL 4. 20 - 5.40 [facility] Hemoglobin [Mass/volume] in Blood 11.0 g/dL 12.0 - 16.0 L [facility] Hematocrit [Volume Fraction] of Blood by Automated count 36.7 % 3 7.0 - 47.0 L [facility] Erythrocyte mean corpuscular volume [Entitic volume] by Auto mated count 78.4 fL 81.0 - 101 L [facility] Erythrocyte mean corpuscular hemoglobin [Entitic mass] by Automated count 23.5 pg 27.0 - 34.0 L [facility] Erythrocyte mean corpuscular hemoglobin concentration [Mass/volume] by Automated count 30.0 g/dL 31.0 - 36.0 L [facility] Erythrocyte distribution width [Ratio] by Automated count 16.4 % 11.5 - 14.5 H [facility] Platelets [#/volume] in Blood by Automated count 382 10^3/uL 150 - 45 0 [facility] Platelet mean volume [Entitic volume] in Blood by Automated count 9.0 fL 7.4 - 10.4 [facility] Neutrophils/100 leukocytes in Blood by Automated count 94.0 % 37. 0 - 80.0 H [facility] Lymphocytes/100 leukocytes in Blood by Manual count 1.8 % 25.0 - 40.0 L [facility] Monocytes/100 leukocytes in Blood by Automated count 1.9 % 3.0 - 8.0 L [facility] Eosinophils/100 leukocytes in Blood by Automated count 1.3 % 0.0 - 7.0 [facility] Basophils/100 leukocytes in Blood by Automated count 0.5 % 0.0 - 2.5 [facility] %IG 0.5 % 0.0 - 0.0 [facility] %NRBC 0.0 % 0.0 - 0.0 [facility] al Neutrophils [#/volume] in Blood by Automated count 7.41 10^3/uL 2.00 - 6.90 H [facility] Lymphocytes [#/volume] in Blood by Automated count 0.14 10^3/uL 0.60 - 3.40 L [facility] Monocytes [#/volume] in Blood by Automated count 0.15 10^3/uL 0.00 - 0.90 [facility] Eosinophils [#/volume] in Blood by Automated count 0.10 10^3/uL 0.00 - 0.70 [facility] Basophils [#/volume] in Blood by Automated count 0.04 10^3/uL 0.00 - 0.20 [facility] [facility] #IG 0.04 10^3/uL 0.00 - 0.10 [facility] #NRBC 0.00 10^3/uL 0.00 - 0.00 [facility] ospital MANUAL DIFF SEE BELOW [facility] ital Segmented neutrophils/100 leukocytes in Blood by Manual count 93 % 37 - 80 H [facility] %LYMPH 5 % 25 - 40 [facility]MONO 1 % 3 - 8 [facility] %EOS 1 % 0 - 7 [facility] RBC MORPH NOT INDICATED [facility] ID Date Data Source [id number] 10/27/2019 11:59:00 AM [facility] Name Value Range Interpretation Code Description Data Sumaya rce(s) Supporting Document(s) Lactate [Moles/volume] in Serum or Plasma 3.2 MMOL/L 0.2 - 2.2 H [facility] ID Date Data Source [id number] 10/27/2019 01:42:00 PM [facility] Name Value Range Interpretation Code Description Data Sumaya rce(s) Supporting Document(s) C reactive protein [Mass/volume] in Serum or Plasma by High sensitivity method 34.55 MG/L 1.00 - 3.00 H [facility] CDC/S HS-CRP CUT-OFF: RELATIVE RISK: <1.0 mg/L Low 1.0 - 3.0 mg/L Average >3.0 mg/L High Optimally, the average of HS-CRP results repeated two weeks apart should be used for risk assessment. ID Date Data Source [id number] 10/27/2019 01:17:00 PM [facility] Name Value Range Interpretation Code Description Data Sumaya rce(s) Supporting Document(s) Prothrombin time (PT) 13.3 SECONDS 11.0 - 15.5 [facility] INR in Platelet poor plasma by Coagulation assay 1.00 0.93 - 1. 23 [facility] aPTT in Blood by Coagulation assay 34.3 SECONDS 24.8 - 36.7 [facility] \\BLDo\\INR INTERPRETATION\\BLDx\\ Therapeutic range for Coumadin and related oral anticoagulants. - International Normalized Ratio (INR): 2.0 - 3.0 for Venous Thrombosis, Pulmonary Embolus, Tissue heart valves, Acute NH Atrial Fibrillation, Valvular heart disease and recurrent [...] (GEL) Manual 10/16/2019 12:00:00 AM EST eCW1 ([facility]) Name Value Range Interpretation Code Description Data Sumaya rce(s) Supporting Document(s) NEGATIVE AB SCREEN GEL MANUAL eCW1 ([facility]) O NEGATIVE BLOOD TYPE eCW1 ([facility]) ID Date Data Source Basic Metabolic Profile (BMP) 10/16/2019 12:00:00 AM EST eCW 1 ([facility]) Name Value Range Interpretation Code Description Data Sumaya rce(s) Supporting Document(s) 95 70-100 GLUCOSE, FASTING eCW1 ([facility]) 0.66 0.55-1.30 CREATININE FOR GFR eCW1 ([facility] 3 7-18 BLOOD UREA NITROGEN eCW1 ([facility]) 4.5 3.5-5.1 POTASSIUM SERUM eCW1 ([facility]) > 60.0 >58 GLOMERULAR FILTRATION RATE eCW 1 ([facility]) 139 136-145 SODIUM LEVEL eCW1 ([facility]) 104 98-107 CHLORIDE LEVEL eCW1 ([facility]) 24 21-32 CARBON DIOXIDE LEVEL eCW1 ([facility]) 8.6 8.5-10.1 CALCIUM LEVEL eCW1 ([facility]) ID Date Data Source CBC 10/16/2019 12:00:00 AM EST eCW1 ([facility]) Name Value Range Interpretation Code Description Data Sumaya rce(s) Supporting Document(s) 7.5 12.0-15.5 HEMOGLOBIN eCW1 ([facility]) 7.0 4.0-10.0 WHITE BLOOD COUNT eCW1 ([facility]) 26.1 36.0-47.0 HEMATOCRIT eCW1 ([facility]) 3.27 4.00-5.40 RED BLOOD COUNT eCW1 ([facility]) 28.7 32.0-36.5 MEAN CORPUSCULAR HGB CONC eCW1 ([facility]) 79.8 80.0-96.0 MEAN CORPUSCULAR VOLUME e CW1 ([facility]) 263 150-450 PLATELET COUNT, AUTOMATED eCW1 ([facility]) 22.9 27.0-33.0 MEAN CORPUSCULAR HEMOGLOB IN eCW1 ([facility]) 16.4 11.5-14.5 RED CELL DISTRIBUTION WID TH eCW1 ([facility]) ID Date Data Source [id number] 10/06/2019 04:22:21 PM [facility] Name Value Range Interpretation Code Description Data Sumaya rce(s) Supporting Document(s) Progress Note [facility] OITYMh2qIbMSPyVu27/XTElwQYDua9AlIRyxTUj1XFqmSURbU7DdXSE9wE1qLDH4COrPUxAlZIiyKeU6 lbm [file] Z5FHG7aGGwGr7WQuQ7RpCWZwNsRG8SJYs= ID Date Data Source [id number] 10/06/2019 01:22:42 PM EST [facility] Name Value Range Interpretation Code Description Data Sumaya rce(s) Supporting Document(s) Progress Note [facility] IDSIZu3iDaFKLmZl85/TOQeoYDHre9WfWObsUJr1XHwrVSXpK7GlDPN2aL9rGTF7HOdDTjIhASarNaK1 lbm [file] ICAgICAgICAgICAgICAgICAgICAgICAgICAgICAgICAgICAgICAgICAgICAgICAgICAgICAgICAgICAg ICAgICAgICAgICAgICAgDQogICAgICAgICAgICAgIC AgICAgICAgICAgICAgICAgICAgICAgICAgICAgICAgICAgICAgICAgICAgICAgICAgICAgICAgICAgIC AgICAgICAgICAgICAgICAgICAgICAgICAgDQogICAgICAgICAgICAgICAgICAgICAgICAgICAgICAgIC AgICAgICAgICAgICAgICAgICAgICAgICAgICAgICAg ICAgICAgICAgICAgICAgICAgICAgICAgICAgICAgICAgICAgDQogICAgICAgICAgICAgICAgICAgICAg ICAgICAgICAgICAgICAgICAgICAgICAgICAgICAgICAgICAgICAgICAgICAgICAgICAgICAgICAgICAg ICAgICAgICAgICAgICAgICAgDQogICAgICAgICAgIC AgICAgICAgICAgICAgICAgICAgICAgICAgICAgICAgICAgICAgICAgICAgICAgICAgICAgICAgICAgIC AgICAgICAgICAgICAgICAgICAgICAgICAgICAgDQogICAgICAgICAgICAgICAgICAgICAgICAgICAgIC AgICAgICAgICAgICAgICAgICAgICAgICAgICAgICAg ICAgICAgICAgICAgICAgICAgICAgICAgICAgICAgICAgICAgICAgDQogICAgICAgICAgICAgICAgICAg ICAgICAgICAgICAgICAgICAgICAgICAgICAgICAgICAgICAgICAgICAgICAgICAgICAgICAgICAgICAg ICAgICAgICAgICAgICAgICAgICAgDQogICAgICAgIC AgICAgICAgICAgICAgICAgICAgICAgICAgICAgICAgICAgICAgICAgICAgICAgICAgICAgICAgICAgIC AgICAgICAgICAgICAgICAgICAgICAgICAgICAgICAgDQogICAgICAgICAgICAgICAgICAgICAgICAgIC AgICAgICAgICAgICAgICAgICAgICAgICAgICAgICAg ICAgICAgICAgICAgICAgICAgICAgICAgICAgICAgICAgICAgICAgICAgDQogICAgICAgICAgICAgICAg ICAgICAgICAgICAgICAgICAgICAgICAgICAgICAgICAgICAgICAgICAgICAgICAgICAgICAgICAgICAg HLEyGFYzDUMyARWeYTIvUHNvIJBuSLKpOMk6O1zjZP YxNZVdNK5oNLg3Lh7+RDaJXzZmFTU8xuRljW3OET8sf1ZaAJveRRZvh9UnPDs7KX0JYWHtHUtwKN1SLE rwvr6XTNYiWSQttSBVj6sbYfPaXCX3HFXkOduvGS8JRPOgH4roxnHpEXOhUVPEPJqmHIFOUEoxRSTNVM VzJDJgVuLwTrHtAWWnZFAhJAJCZB2SYtXgT8SuzE78 IDYNCj4+OCgpvzVkXeiUPdTmOAIsh7JhZRj8PT7KJUCkHdztq7QcLZQfHCYIYDcjOH7LTNY6JWSuDJTw Iz0JPOOeQ152ctEqDQ6DNs0CXlFtMG8zdo1TXIFgNRAfQzxSUur9FFdnET2WwMZiMGjUye5hgkFvshLC d5BmnfGksLFDqSdgGNCMTGJ9FA6dxZTyCPTKPOvxL2 DFIBE6MSHrXtZ1ZpXoDOpdWAR8JBMmQH3iZGkiCS8WQXC2JMvaULYzPVLiT7mOUzBxMDOdMKSgkAkfUM 1SMyAbW5UxxxJfsBO8UUCeWIODUm3+PVajjlHqFubBExLxOHGgu3WxIRc0HJ5AAVAbIWaiGC3QQNWgbX 1xNDalVY7UVbLjWTVoECTQSaWhU93srBRxMVx7E3Rw YmVkZGVkRmlsZXMgPDwvTmFtZXMgWyBdDQogID4+ID4+LLlzCX5DWYjjpoVvBBFmZl5LQEGdISLvBM7p NMRqMPPgK1S2vJltKRNGClRkD2hslufvTG7sMQGkK834nCxdphYmNEWpJCSeKs4TCGWgXRS5ZEWpsCOa JkxkFMORAWfaHO2YiNMeBBB0qV5qKEvdPFWhELUkG4 qCQwNgnVdiXX02lAnktqIsgVZpHAn+Ld0MIQ3jz4NoREd4rzItYClpXAFnOXvuLHUkFXNgTEEuLAD6JM X5OIBXEjUxJMByVTOrPLrtPLFjSZChbm7EMKCuGPQ5MuF4VPHjUFYhWPLfYBhaYTIuONV5OSLpDUOmMO QzHL2HQtWfKKPbAIYrTXkjVECkTDAnmw9ISKFgVDKl MlT0XGIeYMZjLKYrWQuiHFBbDMMrLiC6PCHiJBHyKD4LFeVuTDGvOFlzFNYvIBFqTESbuu1UARJzKHTl HmM8VgJeILOsNQNxWPsyXSRtDYBkFcuuPCHlPEExDE4NCeNbKVSiHQY1PfPgIQAhEGUxwu6DTKByOAIx IXK8LTPzYPSdNWKeVYzjCPQlPFL1VvR0NNGaCBCnUB 3QDiHxZTSlBIifWjkgODMxJFWjkj6DFYKjWPEcURQwDmKzPEAvNYQyRDnmFAKbHJG9XVd8WYJjWZIyXZ 8PDiIpGKWeGjMgVRTgZRIvFLFwle8MUHIuIIWkCNL3RiNjEPNdAMDqDIlaZSBeOQKjWaO0MORrKPGqZY 8RLrKcANPbPyC1AnLqLUZtEXHrjm6RBPEnBAFdAmA9 FBTfLUQzOBNrWWcnZBIwANZoLdxqALKmIFZdEX1TXgRoIEQaPeL9YUYfWHRyNPRheo7AZTQoMOAcCXAr AKQjRXFjSDUdEVkyRLZeEZU8MvP9YBQpNMEdEJ4TXsHfZMBdAaF8FQMnTDMfIDErkk5PAXYoDUDqUJL4 OGJbSSRpEPYtXGduIUNmPQI3McAnXFFiNDAjEO7WYs PsDSWdFzHgMCMlVRCjXVLctd6KLDXkEHXlLoU4OhCrHKDpBPRcFFukQACqKBV5SBIkFLDhMGYsTX3KHt HaNJXfGxv6QMNiQBTkSKAwaq0PJYZhYQBoWwU2FSIgHTLdXQGlCOfuHOBhNPK1HVN4UXEqZDJpDV6OWl HtONStLOCqFPmqMGQbLDZnly2XNWYtXBR1VcNsQJDv FIVkOECcBCceVLZjZBWmTIDbCMTaAMQjHQ4RQtKsNOVyKOGzHGFcAEKeHYNzli2SKGDvXNJ2PpG0GkTz IPVuZSNmDFjuHXFvXASxFrvsXMDlAQTnSA7VCxMgWMHfLEErGuRrWNYiKPJudb9HTGUqNSC3PJBxALZe HTSzHTHwYJhsMBJfBFX8NfxlVXLnNWSkPD1SBjAgVV diMJCJIhp6JRpkY2f5KIO8Ac8IG3Zqm5WhYHBaLMQGVIkdSU1zhiFxAGGqLt0AT6lBMuwhIjOjWYO9SK WhWBBwDoSdCXZfBjC0YvJrJEZsVZF4Zl6nLVCeGVX1RXdgT8NdPWFcPMFuKLGpChmkWzR9DrP2JFFqKb DmTO9BIc8YZqK2EHO5gTKzXi0NMXL5PiLVAlDkDS7PUBs= ID Date Data Source [id number] 10/01/2019 12:09:48 PM [facility] Name Value Range Interpretation Code Description Data Sumaya rce(s) Supporting Document(s) Discharge Summary [facility] IZRJBn5sZfIRAbDq10/RMBloXGLiz6QvPUnwRQf8SBliNFAjW1FbAWZ1qT6sMLG7KOgFToHdAMncNfUx lbm [file] DZquKVMFVj5V ID Date Data Source [id number] 10/01/2019 03:34:29 AM [facility] Name Value Range Interpretation Code Description Data Sumaya e(s) Supporting Document(s) Leukocytes [#/volume] in Blood by Automated count 7.0 10*3/uL 4-10 [facility] Erythrocytes [#/volume] in Blood by Automated count 3.42 10*6/uL 4.1- 5.3 L [facility] Hemoglobin [Mass/volume] in Blood 8.7 g/dL 11.5-15.5 [facility] Hematocrit [Volume Fraction] of Blood by Automated count 26.6 % 3 6-45 L [facility] Erythrocyte mean corpuscular volume [Entitic volume] by Auto mated count 77.8 fL 80-96 L [facility] Erythrocyte mean corpuscular hemoglobin [Entitic mass] by Automated count 25.5 pg 27-33 L [facility] Erythrocyte mean corpuscular hemoglobin concentration [Mass/volume] by Automated count 32.7 g/dL 32.0-36.0 [facility] distribution width [Ratio] by Automated count 17.3 % 11.5-14.5 H [facility] Platelets [#/volume] in Blood by Automated count 296 10*3/uL 150-400 [facility] Differential cell count method - Blood [facility] Neutrophils/100 leukocytes in Blood by Automated count 64 % [facility] Lymphocytes/100 leukocytes in Blood by Automated count 16 % [facility] Monocytes/100 leukocytes in Blood by Automated count 10 % [facility] Eosinophils/100 leukocytes in Blood by Automated count 9 % [facility] Basophils/100 leukocytes in Blood by Automated count 1 % [facility] Neutrophils [#/volume] in Blood by Automated count 4.56 10*3/uL 1.8-7 .0 [facility] Lymphocytes [#/volume] in Blood by Automated count 1.15 10*3/uL 1.2-4 .0 L [facility] Monocytes [#/volume] in Blood by Automated count 0.68 10*3/uL 0-0.8 [facility] Eosinophils [#/volume] in Blood by Automated count 0.61 10*3/uL 0-0.5 H [facility] Basophils [#/volume] in Blood by Automated count 0.03 10*3/uL 0-0.2 [facility] Nucleated erythrocytes/100 leukocytes [Ratio] in Blood by Automated count 0 /100{WBCs} 0-0 [facility] ID Date Data Source [id number] 10/01/2019 04:59:52 AM [facility] Name Value Range Interpretation Code Description Data Sumaya rce(s) Supporting Document(s) Albumin [Mass/volume] in Serum or Plasma by Bromocresol green (BCG) dye binding method 3.9 g/dL 3.5-5.2 [facility] Bilirubin.total [Mass/volume] in Serum or Plasma 0.4 mg/dL <1.2 [facility] Bilirubin.direct [Mass/volume] in Serum or Plasma <0.3 [facility] Alkaline phosphatase [Enzymatic activity/volume] in Serum or Plasma 73 U/L 35-104 [facility] Aspartate aminotransferase [Enzymatic activity/volume] in Serum or Plasma 18 U/L <32 [facility] Alanine aminotransferase [Enzymatic activity/volume] in Seru m or Plasma 10 U/L <33 [facility] Protein [Mass/volume] in Serum or Plasma 6.2 g/dL 6.4-8.3 L [facility] ID Date Data Source [id number] 10/01/2019 04:59:52 AM [facility] Name Value Range Interpretation Code Description Data Sumaya rce(s) Supporting Document(s) Magnesium [Mass/volume] in Serum or Plasma 2.2 mg/dL 1.6-2.6 [facility] ID Date Data Source [id number] 10/01/2019 04:59:52 AM [facility] Name Value Range Interpretation Code Description Data Sumaya rce(s) Supporting Document(s) Phosphate [Mass/volume] in Serum or Plasma 4.0 mg/dL 2.5-4.5 [facility] ID Date Data Source [id number] 10/01/2019 05:54:33 AM [facility] Value Range Interpretation Code Description Data Sumaya rce(s) Supporting Document(s) Bicarbonate [Moles/volume] in Serum 29 mmol/L 22-29 [facility] Chloride [Moles/volume] in Serum or Plasma 103 mmol/L 98-107 [facility] Creatinine [Mass/volume] in Serum or Plasma 0.60 mg/dL 0.50-0.90 [facility] Glucose [Mass/volume] in Serum or Plasma 114 mg/dL 70-140 [facility] Potassium [Moles/volume] in Serum or Plasma 4.5 mmol/L 3.4-5.1 [facility] Sodium [Moles/volume] in Serum or Plasma 141 mmol/L 136-145 [facility] Urea nitrogen [Mass/volume] in Serum or Plasma 20 mg/dL 6-20 [facility] Confirmed Anion gap 3 in Serum or Plasma 9 mmol/L 8-15 [facility] Osmolality of Serum or Plasma by calculation 295 mosm/kg 275-300 [facility] Creatinine/Urea nitrogen [Mass Ratio] in Serum or Plasma 33 [facility] Calcium [Mass/volume] in Serum or Plasma 9.1 mg/dL 8.6-10.0 [facility] Glomerular filtration rate/1.73 sq M pre dicted among non-blacks [Volume Rate/Area] in Serum or Plasma by Creatinine-based formula (MDRD) >6 0 [facility] Glomerular filtration rate/1.73 sq M pre dicted among blacks [Volume Rate/Area] in Serum or Plasma by Creatinine-based formula (MDRD) >60 [facility] ID Date Data Source [id number] 09/30/2019 10:45:16 AM [facility] Value Range Interpretation Code Description Data Sumaya rce(s) Supporting Document(s) Prealbumin [Mass/volume] in Serum or Plasma 26.3 mg/dL 20.0-40.0 [facility] ID Date Data Source [id number] 09/30/2019 04:12:09 AM [facility] Name Value Range Interpretation Code Description Data Sumaya rce(s) Supporting Document(s) Leukocytes [#/volume] in Blood by Automated count 5.5 10*3/uL 4-10 [facility] Erythrocytes [#/volume] in Blood by Automated count 3.04 10*6/uL 4.1- 5.3 L [facility] Hemoglobin [Mass/volume] in Blood 7.7 g/dL 11.5-15.5 [facility] Hematocrit [Volume Fraction] of Blood by Automated count 23.8 % 3 6-45 L [facility] Erythrocyte mean corpuscular volume [Entitic volume] by Auto mated count 78.4 fL 80-96 L [facility] Erythrocyte mean corpuscular hemoglobin [Entitic mass] by Automated count 25.3 pg 27-33 [facility] Erythrocyte mean corpuscular hemoglobin concentration [Mass/volume] by Automated count 32.3 g/dL 32.0-36.0 [facility] E[facility]throcyte distribution width [Ratio] by Automated count 16.8 % 11.5-14.5 H [facility] Platelets [#/volume] in Blood by Automated count 276 10*3/uL 150-400 [facility] Differential cell count method - Blood [facility] Neutrophils/100 leukocytes in Blood by Automated count 65 % [facility] Lymphocytes/100 leukocytes in Blood by Automated count 17 % [facility] Monocytes/100 leukocytes in Blood by Automated count 9 % [facility] Eosinophils/100 leukocytes in Blood by Automated count 8 % [facility] Basophils/100 leukocytes in Blood by Automated count 1 % [facility] Neutrophils [#/volume] in Blood by Automated count 3.65 10*3/uL 1.8-7 .0 [facility] Lymphocytes [#/volume] in Blood by Automated count 0.92 10*3/uL 1.2-4 .0 L [facility] Monocytes [#/volume] in Blood by Automated count 0.52 10*3/uL 0-0.8 [facility] Eosinophils [#/volume] in Blood by Automated count 0.44 10*3/uL 0-0.5 [facility] Basophils [#/volume] in Blood by Automated count 0.03 10*3/uL 0-0.2 [facility] Nucleated erythrocytes/100 leukocytes [Ratio] in Blood by Automated count 0 /100{WBCs} 0-0 [facility] ID Date Data Source [id number] 09/30/2019 04:54:23 AM [facility] Name Value Range Interpretation Code Description Data Sumaya rce(s) Supporting Document(s) Albumin [Mass/volume] in Serum or Plasma by Bromocresol green (BCG) dye binding method 3.5 g/dL 3.5-5.2 [facility] Bilirubin.total [Mass/volume] in Serum or Plasma 0.4 mg/dL <1.2 [facility] Bilirubin.direct [Mass/volume] in Serum or Plasma <0.3 [facility] Alkaline phosphatase [Enzymatic activity/volume] in Serum or Plasma 69 U/L 35-104 [facility] Aspartate aminotransferase [Enzymatic activity/volume] in Serum or Plasma 12 U/L <32 [facility] Alanine aminotransferase [Enzymatic activity/volume] in Seru m or Plasma 7 U/L <33 [facility] Protein [Mass/volume] in Serum or Plasma 5.5 g/dL 6.4-8.3 L [facility] ID Date Data Source [id number] 09/30/2019 04:54:23 AM [facility] Name Value Range Interpretation Code Description Data Sumaya rce(s) Supporting Document(s) Bicarbonate [Moles/volume] in Serum 30 mmol/L 22-29 H [facility] Chloride [Moles/volume] in Serum or Plasma 106 mmol/L 98-107 [facility] Creatinine [Mass/volume] in Serum or Plasma 0.59 mg/dL 0.50-0.90 [facility] Glucose [Mass/volume] in Serum or Plasma 97 mg/dL 70-140 [facility] Potassium [Moles/volume] in Serum or Plasma 3.9 mmol/L 3.4-5.1 [facility] Sodium [Moles/volume] in Serum or Plasma 142 mmol/L 136-145 [facility] Urea nitrogen [Mass/volume] in Serum or Plasma 12 mg/dL 6-20 [facility] Anion gap 3 in Serum or Plasma 6 mmol/L 8-15 L [facility] Osmolality of Serum or Plasma by calculation 294 mosm/kg 275-300 [facility] Creatinine/Urea nitrogen [Mass Ratio] in Serum or Plasma 21 [facility] Calcium [Mass/volume] in Serum or Plasma 8.3 mg/dL 8.6-10.0 L [facility] Glomerular filtration rate/1.73 sq M pre dicted among non-blacks [Volume Rate/Area] in Serum or Plasma by Creatinine-based formula (MDRD) >6 0 [facility] Glomerular filtration rate/1.73 sq M pre dicted among blacks [Volume Rate/Area] in Serum or Plasma by Creatinine-based formula (MDRD) >60 [facility] ID Date Data Source [id number] 09/30/2019 04:54:23 AM [facility] Value Range Interpretation Code Description Data Sumaya rce(s) Supporting Document(s) Magnesium [Mass/volume] in Serum or Plasma 1.9 mg/dL 1.6-2.6 [facility] ID Date Data Source [id number] 09/30/2019 04:54:23 AM [facility] Value Range Interpretation Code Description Data Sumaya rce(s) Supporting Document(s) Phosphate [Mass/volume] in Serum or Plasma 4.6 mg/dL 2.5-4.5 H [facility] ID Date Data Source [id number] 09/30/2019 07:13:34 AM [facility] Value Range Interpretation Code Description Data Sumaya rce(s) Supporting Document(s) Prealbumin [Mass/volume] in Serum or Plasma 20.0-40.0 [facility] LEYDI 4N NOTIFIED AT 0712 BY 6507 ID Date Data Source [id number] 09/29/2019 06:23:31 PM [facility] Value Range Interpretation Code Description Data Sumaya rce(s) Supporting Document(s) Phosphate [Mass/volume] in Serum or Plasma 4.2 mg/dL 2.5-4.5 [facility] ID Date Data Source [id number] 09/29/2019 04:00:25 PM [facility] Value Range Interpretation Code Description Data Sumaya rce(s) Supporting Document(s) History and Physical [facility] CCEMGx7tEdEYSvEu11/ICIacOOMqp1PxRArwGTr4OQmxZWSeG4FhIXL7tO9hYHF3CImKEzTbTPsrWtSj [facility] [file] AgICAgICAgICAgICAgICAgICAgICAgICAgICAgICAgICAgICAgICAgICAgICAgICAgICAgICAgICAgIC BqCSKiZIYzYGYeUAHkNQTyRRVeRV9RKIMfIEDfLXGi ICAgICAgICAgICAgICAgICAgICAgICAgICAgICAgICAgICAgICAgICAgICAgICAgICAgICAgICAgICAg WEHcMBTlLTTiZALxYNFaHBPeWYHiSYVtNHWaMTLlBZ1TTXWlLRXfEQOgZMBcAIKoQLUuBLJfUQUnUDUy ICAgICAgICAgICAgICAgICAgICAgICAgICAgICAgIC EwUMTiECPyIUCzQFQjSHTnBXYpAXGuMPSaMRXdYOLkHFGeDLQrQOXjFQ5FVLOiQYUaJGEdJKFaRPTsPY AgICAgICAgICAgICAgICAgICAgICAgICAgICAgICAgICAgICAgICAgICAgICAgICAgICAgICAgICAgIC FnLWAoHFHtXODoWJTlGYQjHBMrQUDdVA1BPTTmEKGn ICAgICAgICAgICAgICAgICAgICAgICAgICAgICAgICAgICAgICAgICAgICAgICAgICAgICAgICAgICAg UVVoVKTlFMTjMIZxWABiDDZlLRYgJBVcEYJdYLTsQLPuDH6OIKDsDXUvDKPkCFKbZYWbKCKoVPJjMNLp ICAgICAgICAgICAgICAgICAgICAgICAgICAgICAgIC EkLTYqVJAlEOBlKBRoZRPcWRVgEFGaZMRdRFVrXPXaPSEjADVpBNPuEMPeWH6MOPNkEWGiCOYiZZJdOM AgICAgICAgICAgICAgICAgICAgICAgICAgICAgICAgICAgICAgICAgICAgICAgICAgICAgICAgICAgIC XyYSChERZhJTUwEBEyANObLYNrEKRiUTZrAO7IZLIt ICAgICAgICAgICAgICAgICAgICAgICAgICAgICAgICAgICAgICAgICAgICAgICAgICAgICAgICAgICAg MFSiXTTuHFMrLJKhILClNJZxJMTlYPExBPPeQPOcSMEhMXByXY8RVMShIXBcPMCfKWIcSPEgSGHrXHVo ICAgICAgICAgICAgICAgICAgICAgICAgICAgICAgIC VrUVYbSOAvDEJnLFLaMHByPWDwYLPmZGWgILVxJQSgCIOvMAOyQJPnQBSwOWGdRU8IAWIlSVIfLIKeKE AgICAgICAgICAgICAgICAgICAgICAgICAgICAgICAgICAgICAgICAgICAgICAgICAgICAgICAgICAgIC ZtMYZjNHFrEAQaLDTqQCLkVNHzZMEsVAPuJDStVW1K SX09mXBia7K1IPGxSL6pcch/Wn0RMXmhdxNnrKEiIY1JGlYhJT4lfl6DQzNbQL4byc1OOWeBLuNuX5A8 oMVuUICqQDSFAqTxT34sSIliWo91OGugXMRyNlTwIYc0Fn7PAaPuU4abYPFeWnZ2NQDcApW6WMTcNoH2 EZRwFiXiGKJuBNLtBQZsEAIGALD7OCRqYvYeQpYlBR JmWO0CTONaU311ppCwCo7UPq2IVcJgYN4ivk3XZdyaFVUpVkbYPmi8KWavNG1KcXSdbEC4VVXiFOUJCp BzS9sid4MkBXVfLGWSHVagDU3Iu8ZdbTEeJRt+Wa3JIL2rs5EmLYy7GKFmPA0jbz4BRDtHBoNwS7NmoO fgXDzxOPAtxFDGZG8wvCKuvnIDCSYyaNIeHRDAYAVd gOBsNt66MmOmKZpuGFx8QuZuFK5tUWppTC5NQVK0GMjpHAWcUSMrS1hIXtMaXNWpIFDhjXekXG0SZbMh R1WmpgNkrJVoVSRnZDPEGa5+FWguukWxMgjGPfQwQPHwh3YhBGx7ST3YADVwKNflES1SJQMqfL5uFHzj JA2SWfHyOzNlSHOONlYvX46kjYTzWVm8U7OmAaDeYG VkRmlsZXMgPDwvTmFtZXMgWyBdDQogID4+ID4+CYhdBN3HKNysoeFjZMJbBj1QIFJmXQDxBD9lJSMaYZ MhN3L0fFmbAYFOJtMjX7lbssexSR6uJVRsO559tTvmkwReFCH5IAYeMs5HZLCwSEQ6DEAgtOPuRhcnEA PBZExcPD7UnMQgDCT2dS4zPYaaAFAbUXIbN8sYEdEz hZgzLJ57sSletzInhWQdRRm+Qv7VRR1lc9NoLIk6xqPxLVghDDHmRImmRPLtYXIvBIGoJZA3QRY9HEIY JrLzWJSmYPShHMplXILdIEBulv7UQBRqNLA3UaiyVKWlSDQbIKJjYGsbTROhGCH1MHgvJAGgUILaOR6X MwYcJHWbMCApKBafEYNaEIVmop5AVOGlJMHpEMCgEu YgPKAiPLSkMCdcHQGqQZV0ABGeVBMnHJGkPU2QFaPyHHOyZIg4NcAqHZJpOTYumt0FDBXmEJVnIuv7KG GwUGGpQKHyYDvwMIZaQBShEhqcGMQkYNQfOR5LMxBfXSDvQJX8NJQxOGAaLNSflc8VABDoCVTpQPH5QW BgQSDhZDNmUBbvXUChLGF9LLO0YEPzQOJsKN6RGiHx BFYbZQhwNQHrNCAiQAGgsu5ZRLJzSONpSXR2CrMbGOIjEMIgKOcxPKHzESWdYDQ5ZLAgHMStMH8OChXq ZBKtWvD4BfHuSAVmZYAtet9PVSPiJTVkKKCjAeSgNAWtQUElMQmkTLMqUFW9RCEnIUXxYYQnZD9MZpSz XGYzThWrDeXgHLMmXRAtfy7DNOQkDREzQTI4GYQtYN MtTULwVCtgHPCoFRB4IuTzEAQkNUNaIH3JRtHyMOPeXzL6BJLaIIMwRLSlxj6EDNFiJWMjIynjKOOvUC DiCDLbSZepULKbJEC3GSBxXPUgWALoUN2XJkBjXUEqFqptRkMtIYJjYWCcbl9UFESxYVViPJN5WVMqTC KdRVJaEJwaEDAoHIL1OURoOPLdTEYgDJ7ONmPtXXVd Tbg7MsmoQYMeEFIxwf6AEVPdSLH5SLY5ZKGsHSWrCYIvIWgpIQZhBFWyVrB0OEFdHUCyQO8MCsCoDPTa OQT3ESCjPHHcAFXogh4LGWTgTUO1PBvfFKXrQIPnMHDyPDliHAIcXLUjYcycVWGnREVpSN8QClCwNJSn DIJ0DyYjQBOuBWQlqj7LZDThTGL4PeG3DEFxUGIyWB HdQHyhELMiDAOoExM2GEIjXPNxHT8WTdVaOWOuEpN6XFzgSPJfDCMnhu3JTALuUUN0YMX0QKEoMBLrLD YfIPcxNDGfXHL5ImZ6XCReWEMtYN0CIpHwWRUlMyX0HPloWQGuCBSvsx5HDLTaAFR9ZKdwTVWwTBNfAT OpSRu9gvIupLVvUJi9LX6XP7ErzcSrUYTEUa8Cl884 JZVlYGHjQf5AH0fpOm3eIAJdLUKDQy5LOSk8CyGxAJc0C8S3BLE8ZaXbZbP4GIC1RlCqJaUbVJG9CEI+ MKfmYWBbWmE7OUoyBaT6AVI5VXG8HTNtZTA4KaReQSf4Lo5pISBYXb8+RTataQMioNrfBXQRJwB1GCui PEvoGETUVi0L ID Date Data Source [id number] 09/27/2019 11:06:00 AM EST [facility] CONSULTATION REPORT NAME: NI DIAZ : 1980 AGE: 39 MR#: [id number] ADMITTING DATE: ADMITTING DR: DISCHARGE DATE: 09/27/[address]: ROOM#: DATE CONSULT DICTATED 09/27/2019 MEDICAL CONSULTATION September 27, 2019. CHIEF COMPLAINT Nausea, vomiting, bloody diarrhea and abdominal pain. HISTORY OF PRESENTING ILLNESS A 39-year-old female who recently had a reversal of gastric bypass and J-tube placement on September 01, 2019 at [facility], came to the Emergency Department for complaint [...] if the patient can be admitted at [facility]. The patient was seen and examined at [...] and illicit drug abuse. Patient lives in [place] and has four kids. The patient lives [...] liquid. The patient recently had surgery at [facility]. There is no in-house GI (gastrointestinal) service available at [facility]. In view of suspected GI (gastrointestinal) bleeding the patient would benefit from transfer to a tertiary care center where there is an in-house GI (gastrointestinal) service in view of suspicion for active GI (gastrointestinal) bleeding. Recommendations were to transfer the patient to [facility]. Family member, the patient and the ERdoctor were updated about the recommendation. The patient and family member agrees to the plan of transfer to [facility]. Thank you for consulting the hospitalist service. <Electronically signed by Efren Valdez MD> Efren Valdez MD 09/29/19 1613 Efren Valdez MD Cosigner: D: ARYVI 09/27/19 1106 T: BEAMI 09/29/19 1554 CC: Efren Valdez MD; Cynthia Simmons MD LAST EDIT: Name Value Range Interpretation Code Description Data Sumaya rce(s) Supporting Document(s) ID Date Data Source [id number] 09/29/2019 01:12:02 PM [facility] Name Value Range Interpretation Code Description Data Sumaya rce(s) Supporting Document(s) [facility] HBDKCj3xLkBEIdMp89/PWLvdPHKpt4ZaXOvfDHj4VMfpMOHaT0GrNMX0aI6rVPB4JDmRCkKuVNrrVnUq lbm [file] [id number]== ID Date Data Source [id number] 09/29/2019 12:50:12 PM [facility] Name Value Range Interpretation Code Description Data Sumaya rce(s) Supporting Document(s) Consultation [facility] EPVZQw1mGaUKYhOf99/PGVadOYPpy6GdDBiqFTb4MImrEZFpK6AyWIB9bX8eEVE4BWuYZxLnCTvwRnJg lbm [file] ICAgICAgICAgICAgICAgICAgICAgICAgICAgICAgICAgICAgICAgICAgICAgICAgICAgICAgICAgICAg ICAgICAgICAgICAgICAgICAgICAgICAgICAgICAgICAgICAgICAgDQogICAgICAgICAgICAgICAgICAg ICAgICAgICAgICAgICAgICAgICAgICAgICAgICAgIC AgICAgICAgICAgICAgICAgICAgICAgICAgICAgICAgICAgICAgICAgICAgICAgICAgDQogICAgICAgIC AgICAgICAgICAgICAgICAgICAgICAgICAgICAgICAgICAgICAgICAgICAgICAgICAgICAgICAgICAgIC AgICAgICAgICAgICAgICAgICAgICAgICAgICAgICAg DQogICAgICAgICAgICAgICAgICAgICAgICAgICAgICAgICAgICAgICAgICAgICAgICAgICAgICAgICAg ICAgICAgICAgICAgICAgICAgICAgICAgICAgICAgICAgICAgICAgICAgDQogICAgICAgICAgICAgICAg ICAgICAgICAgICAgICAgICAgICAgICAgICAgICAgIC AgICAgICAgICAgICAgICAgICAgICAgICAgICAgICAgICAgICAgICAgICAgICAgICAgICAgDQogICAgIC AgICAgICAgICAgICAgICAgICAgICAgICAgICAgICAgICAgICAgICAgICAgICAgICAgICAgICAgICAgIC AgICAgICAgICAgICAgICAgICAgICAgICAgICAgICAg ICAgDQogICAgICAgICAgICAgICAgICAgICAgICAgICAgICAgICAgICAgICAgICAgICAgICAgICAgICAg ICAgICAgICAgICAgICAgICAgICAgICAgICAgICAgICAgICAgICAgICAgICAgDQogICAgICAgICAgICAg ICAgICAgICAgICAgICAgICAgICAgICAgICAgICAgIC AgICAgICAgICAgICAgICAgICAgICAgICAgICAgICAgICAgICAgICAgICAgICAgICAgICAgICAgDQogIC AgICAgICAgICAgICAgICAgICAgICAgICAgICAgICAgICAgICAgICAgICAgICAgICAgICAgICAgICAgIC AgICAgICAgICAgICAgICAgICAgICAgICAgICAgICAg ICAgICAgDQogICAgICAgICAgICAgICAgICAgICAgICAgICAgICAgICAgICAgICAgICAgICAgICAgICAg ENRvEZJyJBBeZTRbLIKnFDIxSBKyPLWoTFNpSYYeWIIxRAMtSBHsLNAaNHCxSPSzFOx5R3noCYEyHFKz IF6lLLi4Mt9+QBwUNoWsYCR3oyHueK5QHE6hb4YwLJ yhABSwc0JwOUf3FP2YCWRyIQejPY1UADwlpu9BLYJzEZZqcHOPf8ghJmCqFGR1KCLuDflsIG6PKKJvV0 oppnCfFIHkGZHLHSrmIGBXPTixKZRJTPIqXTDeXaSbMnBeBQEtWQOlRQPAVCJ1DQCpUjFyZJryWV9Ow3 NkmZR6TPv+Dp2WON4gi7GlCOqpPnAuPB3tpr4YRBlZ StIyT3RoegD4YJT2KYAyZy0HGHAhUHApqENfPANaSZXMPfAvL3NeiA29KMYREt7+DQplbmRvYmoNCjM4 BBNnt8WbEMq0HU4ROVYaWHc0fXTqS88nz8FqqMCeVxdxR7euo5JclaBeHXtktBh2aktgRWUeGRFqXBIr HE8yKVN7VRVkLkIgGFTHBQ9ZLUCaNQBpgJShQMEbQS GYKU6UBEkzFWA8KHTrvlVccGCpSNbiTK8RULLabbYtTszlYBAAIDp+Ar8CFI5eb9AfDDcfBQFqVD2fsa 7RKXoEUbLbP9N0nFXeN0L7JYmpUr6YDGMhFDPfVhAsHIFBMVawBG2ZUV8iagJ0VB4NsIUdULVaTPLotA WkLDw8U14vpVCrUPdhEN4CWSI+Savannah+Hu6UZSJxCUZa QLFeEvImUQCZLbReG0LaI2NDv8KqA9PnCY34aDiusuAjFJqyMQ4GUE4dAEIjGBLVJY1CoNGvaS4hnnKi ThEyYDPVDsPeV36jdBGbFKYiWGA9DAMmMh6KKBCeW8AnjuSbcGveavQzOHRsBPZOUA2BXCzcjwGtnSOa tHzcZU00pObwPW3EYl1QAbLbEZ6mzo8JjFSlSp5AEW X2RB8UYEYaLYIiINIwBYK6WGHcQsIuMOvuDYDwOZAjRFB8ZIZxDUEnGO5VTfCrWKWwYrorAJHdGJSdVM Wxmx2HTLGrFXWsZKxlKeJeSGDfKFReRRmwPWSxYBVtSYB5AGWwGWCoYG7GHcPiDLVvTKY0YlYlDSYzHE Wicj9BLAJqEGCzGpx2RUQiDXQpHLXmNDppCVBhOOV0 YTm6ZXAfUSEnKH8PBxIhLPBeTLefEBCwUZWiLMSats7MNFVgOMPhYJNxAGUaSEPvOMXsVZmeFWKfBOWs MbKsEDYxARRhFQ6LUrFwFQNyJYX2WkFyMNByHOEgvr3THANkKAIlVoy8FyGhZAMqLSZgYOysYUPaZDD9 SST1SWUjUDCsII8SIlSdKWHyEAB8UVAqSGNjXODpqq 4EVVDsNZTvJGWkBLHtNMWuMVArJRnvMVQpXHF0JbPbRTXaQPIaDA9OUlOmMTAqMItgVaWaHVRsJRGbzz 6YKIBhLECoQJQrTjAbPCGsZWGnVYziSZDtMAIqDZj8UFWfJDJyPO1WLsRfYPWqJgA5NAQoVKZcQRTqmy 5XKBDjZZDiMFw4YfZdVVHcVKXjVOdaWXAwSKXvERB9 QJTkMLNxAH7PBjIlOROjLlPfLxxhMZOqNKTrko7MLSPsCPObLgKdElZpFTDfVKUjWFymVCMcUKSxWNc6 QQElJEAbPG6DMvJwKDEyIjBxVjDpOSOhNMJcyy0VDJQdWJVaSfS2SzVgDFZwEVVoLKicVYYuUYJ4MTKg PFQyYCBgCM3NFdOrSYRtUkHrDBtfUDKwKPIshx1VQS NyXQWxDYQ5PAYgETTlJEMnTFgwTHImKMP8SkX9SJAxVGChTW0IHbXiYEZpOpU4CLEfRDXbEMKkpl4AVH MwSPNjMcz1ArNrDEDiILUeXAwuKDQnDUW8TZj4TBHlAOQeCQ4UNoXhBGTdVxkjSfSnOJDnIVPcyz9NMU JyHWNjCwW6XcHoQSCmBTSnNPusURZqQGR9WQq6WSYg JEObRA5LNaIsQJImZlugHNRgAKOfZWZtup0VRBPaSWCqCNR4SOQfIVBvWCWgXGr8hbLrqOBvGRj6CI1C F0PvkeEkVEIAKc7Tl126SGY6JFDsVg2MD9pdQo9hPWFlIIQBNj1HACa2A1QeSQNnQfw0AZT9VAV4OtIk MDUzZTkxNjZhNThlNmE+QNv6XUE8CfQdMOo3Tgu4Eg UtMcFgPFIzXEA3BrE9FTX9CN7iHXEZLe0+MMxvcBHxsQgkICLIRbI9EKC8NAhzOYQPPu2E ID Date Data Source [id number] 09/29/2019 09:08:05 AM [facility] Name Value Range Interpretation Code Description Data Sumaya rce(s) Supporting Document(s) Leukocytes [#/volume] in Blood by Automated count 5.2 10*3/uL 4-10 [facility] Erythrocytes [#/volume] in Blood by Automated count 2.99 10*6/uL 4.1- 5.3 L [facility] Hemoglobin [Mass/volume] in Blood 7.5 g/dL 11.5-15.5 [facility] Hematocrit [Volume Fraction] of Blood by Automated count 23.4 % 3 6-45 L [facility] Erythrocyte mean corpuscular volume [Entitic volume] by Auto mated count 78.1 fL 80-96 L [facility] Erythrocyte mean corpuscular hemoglobin [Entitic mass] by Automated count 25.2 pg 27-33 [facility] Erythrocyte mean corpuscular hemoglobin concentration [Mass/volume] by Automated count 32.3 g/dL 32.0-36.0 [facility] distribution width [Ratio] by Automated count 16.4 % 11.5-14.5 H [facility] Platelets [#/volume] in Blood by Automated count 238 10*3/uL 150-400 [facility] Differential cell count method - Blood [facility] Neutrophils/100 leukocytes in Blood by Automated count 68 % [facility] Lymphocytes/100 leukocytes in Blood by Automated count 18 % [facility] Monocytes/100 leukocytes in Blood by Automated count 8 % [facility] Eosinophils/100 leukocytes in Blood by Automated count 5 % [facility] Basophils/100 leukocytes in Blood by Automated count 1 % [facility] Neutrophils [#/volume] in Blood by Automated count 3.59 10*3/uL 1.8-7 .0 [facility] Lymphocytes [#/volume] in Blood by Automated count 0.94 10*3/uL 1.2-4 .0 L [facility] Monocytes [#/volume] in Blood by Automated count 0.40 10*3/uL 0-0.8 [facility] Eosinophils [#/volume] in Blood by Automated count 0.27 10*3/uL 0-0.5 [facility] Basophils [#/volume] in Blood by Automated count 0.03 10*3/uL 0-0.2 [facility] Nucleated erythrocytes/100 leukocytes [Ratio] in Blood by Automated count 0 /100{WBCs} 0-0 [facility] ID Date Data Source [id number] 09/29/2019 09:22:00 AM [facility] Name Value Range Interpretation Code Description Data Sumaya rce(s) Supporting Document(s) Troponin T.cardiac [Mass/volume] in Serum or Plasma <0.01 [facility] ID Date Data Source [id number] 09/29/2019 06:23:40 AM [facility] Value Range Interpretation Code Description Data Sumaya rce(s) Supporting Document(s) Albumin [Mass/volume] in Serum or Plasma by Bromocresol green (BCG) dye binding method 3.4 g/dL 3.5-5.2 [facility] Bilirubin.total [Mass/volume] in Serum or Plasma 0.5 mg/dL <1.2 [facility] Bilirubin.direct [Mass/volume] in Serum or Plasma <0.3 [facility] Alkaline phosphatase [Enzymatic activity/volume] in Serum or Plasma 72 U/L 35-104 [facility] Aspartate aminotransferase [Enzymatic activity/volume] in Serum or Plasma 11 U/L <32 [facility] Alanine aminotransferase [Enzymatic activity/volume] in Seru m or Plasma 8 U/L <33 [facility] Protein [Mass/volume] in Serum or Plasma 5.6 g/dL 6.4-8.3 L [facility] ID Date Data Source [id number] 09/29/2019 06:23:40 AM [facility] Value Range Interpretation Code Description Data Sumaya rce(s) Supporting Document(s) Bicarbonate [Moles/volume] in Serum 29 mmol/L 22-29 [facility] Chloride [Moles/volume] in Serum or Plasma 105 mmol/L 98-107 [facility] Creatinine [Mass/volume] in Serum or Plasma 0.62 mg/dL 0.50-0.90 [facility] Glucose [Mass/volume] in Serum or Plasma 114 mg/dL 70-140 [facility] Potassium [Moles/volume] in Serum or Plasma 3.8 mmol/L 3.4-5.1 [facility] Sodium [Moles/volume] in Serum or Plasma 142 mmol/L 136-145 [facility] Urea nitrogen [Mass/volume] in Serum or Plasma 13 mg/dL 6-20 [facility] Confirmed Anion gap 3 in Serum or Plasma 8 mmol/L 8-15 [facility] Osmolality of Serum or Plasma by calculation 295 mosm/kg 275-300 [facility] Creatinine/Urea nitrogen [Mass Ratio] in Serum or Plasma 20 [facility] Calcium [Mass/volume] in Serum or Plasma 8.4 mg/dL 8.6-10.0 L [facility] Glomerular filtration rate/1.73 sq M pre dicted among non-blacks [Volume Rate/Area] in Serum or Plasma by Creatinine-based formula (MDRD) >6 0 [facility] Glomerular filtration rate/1.73 sq M pre dicted among blacks [Volume Rate/Area] in Serum or Plasma by Creatinine-based formula (MDRD) >60 [facility] ID Date Data Source [id number] 09/29/2019 06:23:40 AM [facility] Name Value Range Interpretation Code Description Data Sumaya rce(s) Supporting Document(s) Magnesium [Mass/volume] in Serum or Plasma 2.0 mg/dL 1.6-2.6 [facility] ID Date Data Source [id number] 09/29/2019 06:23:40 AM [facility] Value Range Interpretation Code Description Data Sumaya rce(s) Supporting Document(s) Phosphate [Mass/volume] in Serum or Plasma 4.5 mg/dL 2.5-4.5 [facility] ID Date Data Source [id number] 09/29/2019 12:14:26 AM [facility] Value Range Interpretation Code Description Data Sumaya rce(s) Supporting Document(s) Leukocytes [#/volume] in Blood by Automated count 4.7 10*3/uL 4-10 [facility] Erythrocytes [#/volume] in Blood by Automated count 2.78 10*6/uL 4.1- 5.3 [facility] Hemoglobin [Mass/volume] in Blood 7.1 g/dL 11.5-15.5 [facility] Hematocrit [Volume Fraction] of Blood by Automated count 21.4 % 3 6-45 L [facility] Erythrocyte mean corpuscular volume [Entitic volume] by Auto mated count 77.0 fL 80-96 L [facility] Erythrocyte mean corpuscular hemoglobin [Entitic mass] by Automated count 25.5 pg 27-33 L [facility] Erythrocyte mean corpuscular hemoglobin concentration [Mass/volume] by Automated count 33.2 g/dL 32.0-36.0 [facility] E[facility]throcyte distribution width [Ratio] by Automated count 16.3 % 11.5-14.5 H [facility] Platelets [#/volume] in Blood by Automated count 211 10*3/uL 150-400 [facility] Differential cell count method - Blood [facility] Neutrophils/100 leukocytes in Blood by Automated count 55 % [facility] Lymphocytes/100 leukocytes in Blood by Automated count 28 % [facility] Monocytes/100 leukocytes in Blood by Automated count 11 % [facility] Eosinophils/100 leukocytes in Blood by Automated count 5 % [facility] Basophils/100 leukocytes in Blood by Automated count 1 % [facility] Neutrophils [#/volume] in Blood by Automated count 2.62 10*3/uL 1.8-7 .0 [facility] Lymphocytes [#/volume] in Blood by Automated count 1.30 10*3/uL 1.2-4 .0 [facility] Monocytes [#/volume] in Blood by Automated count 0.51 10*3/uL 0-0.8 [facility] Eosinophils [#/volume] in Blood by Automated count 0.23 10*3/uL 0-0.5 [facility] Basophils [#/volume] in Blood by Automated count 0.04 10*3/uL 0-0.2 [facility] Nucleated erythrocytes/100 leukocytes [Ratio] in Blood by Automated count 0 /100{WBCs} 0-0 [facility] ID Date Data Source [id number] 09/29/2019 12:27:57 AM [facility] Name Value Range Interpretation Code Description Data Sumaya rce(s) Supporting Document(s) Troponin T.cardiac [Mass/volume] in Serum or Plasma <0.01 [facility] ID Date Data Source [id number] 09/28/2019 05:27:38 PM [facility] Name Value Range Interpretation Code Description Data Sumaya rce(s) Supporting Document(s) Leukocytes [#/volume] in Blood by Automated count 5.7 10*3/uL 4-10 [facility] Erythrocytes [#/volume] in Blood by Automated count 2.82 10*6/uL 4.1- 5.3 L [facility] Hemoglobin [Mass/volume] in Blood 7.2 g/dL 11.5-15.5 [facility] Hematocrit [Volume Fraction] of Blood by Automated count 21.9 % 3 6-45 L [facility] Erythrocyte mean corpuscular volume [Entitic volume] by Auto mated count 77.6 fL 80-96 L [facility] Erythrocyte mean corpuscular hemoglobin [Entitic mass] by Automated count 25.5 pg 27-33 L [facility] Erythrocyte mean corpuscular hemoglobin concentration [Mass/volume] by Automated count 32.9 g/dL 32.0-36.0 [facility] E[facility]throcyte distribution width [Ratio] by Automated count 16.4 % 11.5-14.5 H [facility] Platelets [#/volume] in Blood by Automated count 223 10*3/uL 150-400 [facility] Differential cell count method - Blood [facility] Neutrophils/100 leukocytes in Blood by Automated count 60 % [facility] Lymphocytes/100 leukocytes in Blood by Automated count 26 % [facility] Monocytes/100 leukocytes in Blood by Automated count 10 % [facility] Eosinophils/100 leukocytes in Blood by Automated count 3 % [facility] Basophils/100 leukocytes in Blood by Automated count 1 % [facility] Neutrophils [#/volume] in Blood by Automated count 3.43 10*3/uL 1.8-7 .0 [facility] Lymphocytes [#/volume] in Blood by Automated count 1.48 10*3/uL 1.2-4 .0 [facility] Monocytes [#/volume] in Blood by Automated count 0.57 10*3/uL 0-0.8 [facility] Eosinophils [#/volume] in Blood by Automated count 0.16 10*3/uL 0-0.5 [facility] Basophils [#/volume] in Blood by Automated count 0.04 10*3/uL 0-0.2 [facility] Nucleated erythrocytes/100 leukocytes [Ratio] in Blood by Automated count 0 /100{WBCs} 0-0 [facility] ID Date Data Source [id number] 09/28/2019 05:51:27 PM [facility] Name Value Range Interpretation Code Description Data Sumaya rce(s) Supporting Document(s) Troponin T.cardiac [Mass/volume] in Serum or Plasma <0.01 [facility] ID Date Data Source [id number] 09/28/2019 02:03:51 PM [facility] Name Value Range Interpretation Code Description Data Sumaya rce(s) Supporting Document(s) EKG [facility] CEMQOk4jRxNVAyMxc8XnGqLiXJYfDM3cvkh9F5T7iYYsT8OtsKZuh5yrQ0KiQ7LhZDQsJNYJQB8UkOVw jb2 [file] ClwUuDF+Extrusion Engineer/DN0CIKM1QHNx/Mh1g8IwJbvfFVt5jKJc9nmHajcVxV/GJdr4+y8a7m9USrqxu7g/WBxw [file] v1m1mE1E76exI9/rCBcAH07BFi3F0179388/9fLnb/ /83eklN4+9lgrN8uyaIw9h0Mb8m42uX+99K79+9/L9j3/97s//+9s//J1lif8ck6/3vnVj/Dg2fzlra+ 9f/vifj3v//adjx505YwO1f+6nr5u7Ob7+/U8f/sAnHZdC//hj+dhi6ztm6a5iRu/rjPmzmz+8zN6Sr6 w51Te8fLHet/Ihsr6j8/6f7/7y39+c+8wy27P7J7/7 5RzzdU0tK/5//flffvmzs/dz+Cdcvif6H4+ecLzSf/rtf/3e7849bleWymsgl/z+x5///n6dzP/0r//9 t7cT3/740j3oV/5+/bfZdx1vh/rDx+J8z59/XMAP7Km/8N0f/uPH7//wuL+PX54ME/jyMozuZ482z99+ nahsW35s8/Alhj12cGJl+hjjyrb34Ov1Q/Nb9PzG/f 9Lkf0k6WmIR+nX3/77dy/y8tO/xXq545GA22oZDn7ra5+7zdO13rbiLu+/SH/MjS/6ze562pF69w0Q7a OvJbZ51rLXg/qow8v40mCaA0za0lq0/aSbxlQ4AyFaOQI0veEcnYqiutPiZsiMOFsrTOEgGpi7OM5PjN AwQPYhX8V2AMOave3gRFQjQOFeyQSeKuLxMLJRJD3C gOUbKJ3EBKl1GKSsRUGhRwOjDTQdpdJ2MUTnZCCdKQTyT9EautPfkQDbVKGeEp9+QV9ir7UhLnFwBDUs Iow3YC7KuAGsIU5TpCRwbD4jjnJvL244rfNuWUBhRmlid8FnNFntNENCPV6XRQH6WPC7PJRtIt3+ZW5k p2PcWfPbBKWjRmr3JX6KrPBoy7CyCM2BG4ZyNNXfXX LCVGZ9u3GhDCOegyzhgquxB9EzPUX5nD0eFCX2QTSbGTazPFA8JIXeAOL5PAUoLPtpJJVgOQRfRYWqLR CoDAw0rEJyFA2JK4IzRTVeIDKUYFUnkkNlIs5jOARZBDRRNLUCVTJaOOMJWODVXPKoWUPcQGjwJNTeB4 AhgzSayXUvALLSRShuVcisCHOxkL4vgBicD9RhCFT1 k1CwCQ5YY8YlPOHuXUFCMCO1i9XvXKTkflckpbxaBwRsOHSlBCVzZXQqOW2Hxu2fuRUxopKeDTVLCXrt XufdIE9bhZxyacksL0TbzMBvUXP+YlWoUS0xms5+TrKvMISbWgs4IKAtPRslCXZoYCVjYBIgT1elUBOx WiUhIWWjGfWwQU7Ul2XuiPDePo7ddqInVjeEtSHhVm rvYAQaIQMvIUUbFvBIILXyLKXtTLKdJPT6EYUoXAReQRyfINKnLPDpOXEbRDKxYCFcAW1oNlHoTZJrDn W3AbRuQHOyITFwhiVJPFTpGLV6NNKvKjEtRISqMXOlJIhwWTWyPBHkDIZsBND6JIR0HRFrFrXyBTKsOR WjNMOmCYNtIVXxtmDWFEZiMUSnRWY0FXAqOMYkLFTd BKhaYASeALIqFBxrGYWnSLQyXD2uNlLaDXUsDCPlPOzmFEWfYVVqjyZHGEZcYKZhDPIrCIAyLHAaAKNu VWruDCCpUQNqLOAcDZUbLVAaMM0xLhZrVYYwQWL3YIFtOAHrEWGdjtNKCENgCTNeCNo3EYIcLUHuCBJn YTktQBHoBOPvKNW2CUCrKURgNK7cDjAwTWThDNB2Ya PrRBHlFCHwsnBGKGUrOSCwGNI0UxEoMKJeSKJrXQrhPBJiWARkSTfpEQOhWLLxXI9eCtNiJCAjUVOsCX apULAwMUMulaYWEOFtNZQeTAMwLgHeCOZwDCVaRYjqVXFdNBAyDGR2GHRqKNLuMG4hZtSkAXHyXJS1IK kgMDAwMDAgbiAKMDAwMDAwMTczNCAwMDAwMCBuIAow XWRoHDDrHLT6ZVWnKKZcUX2kGgSkRJXsHHDaTWZwQjQ0KxEgMwXUkDXrzPqngyb2CNkuM3v3XSLkILnv NJ4ysdPyQSFhJoxgSo4ubUK5MWSkNmsTJb9Ed3PgbgF7kcMeYnNqHLM2IiBwAE5J ID Date Data Source [id number] 09/28/2019 01:10:41 PM [facility] Name Value Range Interpretation Code Description Data Sumaya rce(s) Supporting Document(s) Leukocytes [#/volume] in Blood by Automated count 5.7 10*3/uL 4-10 [facility] Erythrocytes [#/volume] in Blood by Automated count 2.92 10*6/uL 4.1- 5.3 L [facility] Hemoglobin [Mass/volume] in Blood 7.3 g/dL 11.5-15.5 L [facility] Hematocrit [Volume Fraction] of Blood by Automated count 22.6 % 3 6-45 L [facility] Erythrocyte mean corpuscular volume [Entitic volume] by Auto mated count 77.4 fL 80-96 L [facility] Erythrocyte mean corpuscular hemoglobin [Entitic mass] by Automated count 25.0 pg 27-33 L [facility] Erythrocyte mean corpuscular hemoglobin concentration [Mass/volume] by Automated count 32.3 g/dL 32.0-36.0 [facility] E[facility] distribution width [Ratio] by Automated count 16.8 % 11.5-14.5 H [facility] Platelets [#/volume] in Blood by Automated count 240 10*3/uL 150-400 [facility] Differential cell count method - Blood [facility] Neutrophils/100 leukocytes in Blood by Automated count 68 % [facility] Lymphocytes/100 leukocytes in Blood by Automated count 20 % [facility] Monocytes/100 leukocytes in Blood by Automated count 10 % [facility] Eosinophils/100 leukocytes in Blood by Automated count 1 % [facility] Basophils/100 leukocytes in Blood by Automated count 1 % [facility] Neutrophils [#/volume] in Blood by Automated count 3.84 10*3/uL 1.8-7 .0 [facility] Lymphocytes [#/volume] in Blood by Automated count 1.12 10*3/uL 1.2-4 .0 L [facility] Monocytes [#/volume] in Blood by Automated count 0.58 10*3/uL 0-0.8 [facility] Eosinophils [#/volume] in Blood by Automated count 0.08 10*3/uL 0-0.5 [facility] Basophils [#/volume] in Blood by Automated count 0.03 10*3/uL 0-0.2 [facility] Nucleated erythrocytes/100 leukocytes [Ratio] in Blood by Automated count 0 /100{WBCs} 0-0 [facility] ID Date Data Source [id number] 09/28/2019 12:04:43 PM [facility] Name Value Range Interpretation Code Description Data Sumaya rce(s) Supporting Document(s) Magnesium [Mass/volume] in Serum or Plasma 1.8 mg/dL 1.6-2.6 [facility] ID Date Data Source [id number] 09/28/2019 12:04:43 PM [facility] Name Value Range Interpretation Code Description Data Sumaya rce(s) Supporting Document(s) Phosphate [Mass/volume] in Serum or Plasma 4.7 mg/dL 2.5-4.5 H [facility] ID Date Data Source [id number] 09/28/2019 09:20:55 AM [facility] Value Range Interpretation Code Description Data Sumaya rce(s) Supporting Document(s) Troponin T.cardiac [Mass/volume] in Serum or Plasma <0.01 [facility] ID Date Data Source [id number] 09/28/2019 05:51:55 AM [facility] Name Value Range Interpretation Code Description Data Sumaya rce(s) Supporting Document(s) Leukocytes [#/volume] in Blood by Automated count 6.8 10*3/uL 4-10 [facility] Erythrocytes [#/volume] in Blood by Automated count 3.29 10*6/uL 4.1- 5.3 [facility] Hemoglobin [Mass/volume] in Blood 8.3 g/dL 11.5-15.5 [facility] Hematocrit [Volume Fraction] of Blood by Automated count 25.6 % 3 6-45 [facility] Erythrocyte mean corpuscular volume [Entitic volume] by Auto mated count 77.8 fL 80-96 [facility] Erythrocyte mean corpuscular hemoglobin [Entitic mass] by Automated count 25.3 pg 27-33 [facility] Erythrocyte mean corpuscular hemoglobin concentration [Mass/volume] by Automated count 32.5 g/dL [facility].0[facility] width [Ratio] by Automated count 16.6 % 11.5-14.5 [facility] Platelets [#/volume] in Blood by Automated count 266 10*3/uL 150-400 [facility] Differential cell count method - Blood [facility] Neutrophils/100 leukocytes in Blood by Automated count 88 % [facility] Lymphocytes/100 leukocytes in Blood by Automated count 9 % [facility] Monocytes/100 leukocytes in Blood by Automated count 3 % [facility] Eosinophils/100 leukocytes in Blood by Automated count 0 % [facility] Basophils/100 leukocytes in Blood by Automated count 0 % [facility] Neutrophils [#/volume] in Blood by Automated count 5.91 10*3/uL 1.8-7 .0 [facility] Lymphocytes [#/volume] in Blood by Automated count 0.62 10*3/uL 1.2-4 .0 L [facility] Monocytes [#/volume] in Blood by Automated count 0.21 10*3/uL 0-0.8 [facility] Eosinophils [#/volume] in Blood by Automated count 0.00 10*3/uL 0-0.5 [facility] Basophils [#/volume] in Blood by Automated count 0.03 10*3/uL 0-0.2 [facility] Nucleated erythrocytes/100 leukocytes [Ratio] in Blood by Automated count 0 /100{WBCs} 0-0 [facility] ID Date Data Source [id number] 09/28/2019 06:17:18 AM [facility] Name Value Range Interpretation Code Description Data Sumaya rce(s) Supporting Document(s) Albumin [Mass/volume] in Serum or Plasma by Bromocresol green (BCG) dye binding method 3.8 g/dL 3.5-5.2 [facility] Bilirubin.total [Mass/volume] in Serum or Plasma 0.8 mg/dL <1.2 [facility] Bilirubin.direct [Mass/volume] in Serum or Plasma <0.3 [facility] Alkaline phosphatase [Enzymatic activity/volume] in Serum or Plasma 90 U/L 35-104 [facility] Aspartate aminotransferase [Enzymatic activity/volume] in Serum or Plasma 11 U/L <32 [facility] Alanine aminotransferase [Enzymatic activity/volume] in Seru m or Plasma 9 U/L <33 [facility] Protein [Mass/volume] in Serum or Plasma 6.2 g/dL 6.4-8.3 [facility] ID Date Data Source [id number] 09/28/2019 06:17:18 AM [facility] Name Value Range Interpretation Code Description Data Sumaya rce(s) Supporting Document(s) Lipase [Enzymatic activity/volume] in Serum or Plasma 140 U/L 13-6 0 H [facility] ID Date Data Source [id number] 09/28/2019 06:17:18 AM [facility] Name Value Range Interpretation Code Description Data Sumaya rce(s) Supporting Document(s) Bicarbonate [Moles/volume] in Serum 27 mmol/L 22-29 [facility] Chloride [Moles/volume] in Serum or Plasma 105 mmol/L 98-107 [facility] Creatinine [Mass/volume] in Serum or Plasma 0.52 mg/dL 0.50-0.90 [facility] Glucose [Mass/volume] in Serum or Plasma 133 mg/dL 70-140 [facility] Potassium [Moles/volume] in Serum or Plasma 4.1 mmol/L 3.4-5.1 [facility] Sodium [Moles/volume] in Serum or Plasma 140 mmol/L 136-145 [facility] Urea nitrogen [Mass/volume] in Serum or Plasma 8 mg/dL 6-20 [facility] Anion gap 3 in Serum or Plasma 8 mmol/L 8-15 [facility] Osmolality of Serum or Plasma by calculation 290 mosm/kg 275-300 [facility] Creatinine/Urea nitrogen [Mass Ratio] in Serum or Plasma 14 [facility] Calcium [Mass/volume] in Serum or Plasma 9.0 mg/dL 8.6-10.0 [facility] Glomerular filtration rate/1.73 sq M pre dicted among non-blacks [Volume Rate/Area] in Serum or Plasma by Creatinine-based formula (MDRD) >6 0 [facility] Glomerular filtration rate/1.73 sq M pre dicted among blacks [Volume Rate/Area] in Serum or Plasma by Creatinine-based formula (MDRD) >60 [facility] ID Date Data Source [id number] 09/28/2019 01:02:36 AM [facility] Value Range Interpretation Code Description Data Sumaya rce(s) Supporting Document(s) Leukocytes [#/volume] in Blood by Automated count 8.7 10*3/uL 4-10 [facility] Erythrocytes [#/volume] in Blood by Automated count 3.25 10*6/uL 4.1- 5.3 L [facility] Hemoglobin [Mass/volume] in Blood 8.3 g/dL 11.5-15.5 L [facility] Hematocrit [Volume Fraction] of Blood by Automated count 25.3 % 3 6-45 L [facility] Erythrocyte mean corpuscular volume [Entitic volume] by Auto mated count 77.9 fL 80-96 L [facility] Erythrocyte mean corpuscular hemoglobin [Entitic mass] by Automated count 25.7 pg 27-33 L [facility] Erythrocyte mean corpuscular hemoglobin concentration [Mass/volume] by Automated count 33.0 g/dL 32.0-36.0 [facility] Erythrocyte distribution width [Ratio] by Automated count 16.3 % 11.5-14.5 H [facility] Platelets [#/volume] in Blood by Automated count 244 10*3/uL 150-400 [facility] Differential cell count method - Blood [facility] Neutrophils/100 leukocytes in Blood by Automated count 90 % [facility] Lymphocytes/100 leukocytes in Blood by Automated count 6 % [facility] Monocytes/100 leukocytes in Blood by Automated count 3 % [facility] Eosinophils/100 leukocytes in Blood by Automated count 1 % [facility] Basophils/100 leukocytes in Blood by Automated count 0 % [facility] Neutrophils [#/volume] in Blood by Automated count 7.80 10*3/uL 1.8-7 .0 H [facility] Lymphocytes [#/volume] in Blood by Automated count 0.52 10*3/uL 1.2-4 .0 L [facility] Monocytes [#/volume] in Blood by Automated count 0.22 10*3/uL 0-0.8 [facility] Eosinophils [#/volume] in Blood by Automated count 0.09 10*3/uL 0-0.5 [facility] Basophils [#/volume] in Blood by Automated count 0.04 10*3/uL 0-0.2 [facility] Nucleated erythrocytes/100 leukocytes [Ratio] in Blood by Automated count 0 /100{WBCs} 0-0 [facility] ID Date Data Source [id number] 09/28/2019 01:21:20 AM [facility] Name Value Range Interpretation Code Description Data Sumaya rce(s) Supporting Document(s) Bicarbonate [Moles/volume] in Serum 26 mmol/L 22-29 [facility] Chloride [Moles/volume] in Serum or Plasma 108 mmol/L 98-107 H [facility] Creatinine [Mass/volume] in Serum or Plasma 0.57 mg/dL 0.50-0.90 [facility] Glucose [Mass/volume] in Serum or Plasma 154 mg/dL 70-140 H [facility] Potassium [Moles/volume] in Serum or Plasma 4.3 mmol/L 3.4-5.1 [facility] Sodium [Moles/volume] in Serum or Plasma 142 mmol/L 136-145 [facility] Urea nitrogen [Mass/volume] in Serum or Plasma 8 mg/dL 6-20 [facility] Anion gap 3 in Serum or Plasma 9 mmol/L 8-15 [facility] Osmolality of Serum or Plasma by calculation 295 mosm/kg 275-300 [facility] Creatinine/Urea nitrogen [Mass Ratio] in Serum or Plasma 14 [facility] Calcium [Mass/volume] in Serum or Plasma 8.9 mg/dL 8.6-10.0 [facility] Glomerular filtration rate/1.73 sq M pre dicted among non-blacks [Volume Rate/Area] in Serum or Plasma by Creatinine-based formula (MDRD) >6 0 [facility] Glomerular filtration rate/1.73 sq M pre dicted among blacks [Volume Rate/Area] in Serum or Plasma by Creatinine-based formula (MDRD) >60 [facility] ID Date Data Source [id number] 09/28/2019 01:21:20 AM [facility] Name Value Range Interpretation Code Description Data Sumaya rce(s) Supporting Document(s) Troponin T.cardiac [Mass/volume] in Serum or Plasma <0.01 [facility] ID Date Data Source [id number] 09/27/2019 09:46:11 PM [facility] Value Range Interpretation Code Description Data Sumaya rce(s) Supporting Document(s) Operative Note [facility] [id number]/XQZhoSRLkj0KcMVzaUEb5OGjgERPzT6WkUND4nW9fUMM7KXhIKgOiSXltVfM8 m [file] ogICAgICAgICAgICAgICAgICAgICAgICAgICAgICAgICAgICAgICAgICAgICAgICAgICAgICAgICAgIC AgICAgICAgICAgICAgICAgICAgICAgICAgICAgICAgICAgICAgICAgDQogICAgICAgICAgICAgICAgIC AgICAgICAgICAgICAgICAgICAgICAgICAgICAgICAg ICAgICAgICAgICAgICAgICAgICAgICAgICAgICAgICAgICAgICAgICAgICAgICAgICAgDQogICAgICAg ICAgICAgICAgICAgICAgICAgICAgICAgICAgICAgICAgICAgICAgICAgICAgICAgICAgICAgICAgICAg ICAgICAgICAgICAgICAgICAgICAgICAgICAgICAgIC AgDQogICAgICAgICAgICAgICAgICAgICAgICAgICAgICAgICAgICAgICAgICAgICAgICAgICAgICAgIC AgICAgICAgICAgICAgICAgICAgICAgICAgICAgICAgICAgICAgICAgICAgDQogICAgICAgICAgICAgIC AgICAgICAgICAgICAgICAgICAgICAgICAgICAgICAg ICAgICAgICAgICAgICAgICAgICAgICAgICAgICAgICAgICAgICAgICAgICAgICAgICAgICAgDQogICAg ICAgICAgICAgICAgICAgICAgICAgICAgICAgICAgICAgICAgICAgICAgICAgICAgICAgICAgICAgICAg ICAgICAgICAgICAgICAgICAgICAgICAgICAgICAgIC AgICAgDQogICAgICAgICAgICAgICAgICAgICAgICAgICAgICAgICAgICAgICAgICAgICAgICAgICAgIC AgICAgICAgICAgICAgICAgICAgICAgICAgICAgICAgICAgICAgICAgICAgICAgDQogICAgICAgICAgIC AgICAgICAgICAgICAgICAgICAgICAgICAgICAgICAg ICAgICAgICAgICAgICAgICAgICAgICAgICAgICAgICAgICAgICAgICAgICAgICAgICAgICAgICAgDQog ICAgICAgICAgICAgICAgICAgICAgICAgICAgICAgICAgICAgICAgICAgICAgICAgICAgICAgICAgICAg ICAgICAgICAgICAgICAgICAgICAgICAgICAgICAgIC AgICAgICAgDQogICAgICAgICAgICAgICAgICAgICAgICAgICAgICAgICAgICAgICAgICAgICAgICAgIC DqNUVrYDLvGSDeNFQkXOXzDPPqVCClPNHlCPOhIVMiWWPwBWQpRSLaDFPxWPKcEPNnPCf3O6znOSPoDZ WcBQ6kZEz8Pz6+VNxAEkNnJNJ7rmUgwC4QCH5au9Ub JQblETJjf1AaKLj6KW3GDDZyYGbbQA9QMVyxov9QHOGlQIRspUEUg7khShCgYTU7SXZjEgvzMP0BGMCd D6qnyqOzRYJrRFUKWAvrSOZFYK5VAjXxP0WljG94DGJECy0+ZDzrzeCfWybYYdY7FYWuy2AoTJo8SY3L VGTqAunte1FtUBmoXZRGTQxdGH4WWXW8RVX1KGGzDr 9NAHGyJ511dtZqMR8FIz5FQpZkNG0mge9OYKxcZXGbDohQLlz2MFtfFP8QdJUnTKdMwQNjUFDxcnBnQq 67CJDhmRBUCXYdEBEaiXYQOIAsxGcreJtsBTLrFLQpFVYeGG9sBGN8QMP6MvV1NMTABB7WNVMhNWPquA IpFLAmTLURHW7ECIubURI0DPLcvdFifUOeAMotPP6M YXJlbnQgMTYgMCBSDQo+Wh6OAM2qq5NnAJktJQKoYJ9eqn1ANXhDBdXwH0H3sAZfP9D6QZdlBh0SHSWp LPVpQAClGINTAHawJF5ANV1wozR3TC7VqZCiRKQuLUIigCXzZMl1Z75kcIAjDVhzXX6FKWY+Savannah+Pg0K HPXdLRKmHTNdCiSiLCOAKwUgM9UvY7EBi0IqQ0XwGA 60rWqtosUrKTerHH0SBD5cDWMwPSESXO5WyMNwnO3wlrVsPgWtRFNLElNrJ82auGLcDPAcYXJ0TWNcGw 2RJCGaF4PtebMcbUtmahQzJQScYTRCNZ5VSDgfyrWwoOLdgZkeNX31hZopDP1OTe8WDdRmYG2aww0UyG GgMo1ISGUvMG2AUAQjUSReJBEwAGY4VHYeDqKdNFyl PLXiRNLdBVT2QQQvTFMmGV6EOnFyATPgCGb7LbwdLZEfNJIwwd9AVBSrPKCfQGD1ZFUpFHAyKDUjVFxz JADoFNVzEMM0GTKsVJMyDX9QGsOyERCxBWY2BIHrSBLtIUHvzn1NENYlQIGeAxj4XQOtXDUvFNUuEGdw PWFlRIX0YHS3GCFoBDVvQY7FEmFcIQEgEIAbRbzpYE TcQOAusb2WMNVmTIYrDpAeGcUdLSMrTYZuVMccZJMtTKW3DSXrZIAnUWCcCN4DKtNfNHIhWEF9OATyTV OpQXVvpg8XQXCjEZOiMfF6QnTyUXVzEZJsGAiiDWRcEPD4IiZ4FURoGBYnWW5RYeAqKXQiUMk0RTRcMT QtMQTidw1LFOZlZCRpODF1TEAmKCEdUUXiQHcsXWNe OZR2IHVbRRHpKXFhQP9BObSmLBXcICt3FiZvACEeKYLxuy7SZVGfTFBpIRBkYNWeYUGpFRJrDSh1fgHg fYQvSBa3FW6TU4OvarUpVQjHAg8Vr202LUJ9GNOwUv5ZW5xgWv5cSCIvBMDRWn3RWQx6UhtsQmJuI8T9 BeR3XKZ8L0P4PEL7DIB9MhLsLsmsNBY+IDxmOGRiZD EfHebqZEI9JFUqMnz3WTHaQpAiZjH5L5K1Vk1tIGCVZv0+ZYfwcDCvdNpqEARQGxSzCnH0KOxwILOTUu 0K ID Date Data Source [id number] 09/27/2019 08:25:09 PM [facility] Name Value Range Interpretation Code Description Data Sumaya rce(s) Supporting Document(s) Consultation [facility] SZMZLl0yWcVRTrDw38/QSFwyQLVwc1VhAVbtHQz2UPplHFIjV9KbBUF9oT5zYZX6GNvKCdVaFNruAqO1 lbm [file] AgICAgICAgICAgICAgICAgICAgICAgICAgICAgICAg ICAgICAgICAgICANCiAgICAgICAgICAgICAgICAgICAgICAgICAgICAgICAgICAgICAgICAgICAgICAg ICAgICAgICAgICAgICAgICAgICAgICAgICAgICAgICAgICAgICAgICAgICAgICAgICAgICANCiAgICAg ICAgICAgICAgICAgICAgICAgICAgICAgICAgICAgIC AgICAgICAgICAgICAgICAgICAgICAgICAgICAgICAgICAgICAgICAgICAgICAgICAgICAgICAgICAgIC AgICANCiAgICAgICAgICAgICAgICAgICAgICAgICAgICAgICAgICAgICAgICAgICAgICAgICAgICAgIC AgICAgICAgICAgICAgICAgICAgICAgICAgICAgICAg ICAgICAgICAgICAgICANCiAgICAgICAgICAgICAgICAgICAgICAgICAgICAgICAgICAgICAgICAgICAg ICAgICAgICAgICAgICAgICAgICAgICAgICAgICAgICAgICAgICAgICAgICAgICAgICAgICAgICANCiAg ICAgICAgICAgICAgICAgICAgICAgICAgICAgICAgIC AgICAgICAgICAgICAgICAgICAgICAgICAgICAgICAgICAgICAgICAgICAgICAgICAgICAgICAgICAgIC AgICAgICANCiAgICAgICAgICAgICAgICAgICAgICAgICAgICAgICAgICAgICAgICAgICAgICAgICAgIC AgICAgICAgICAgICAgICAgICAgICAgICAgICAgICAg ICAgICAgICAgICAgICAgICANCiAgICAgICAgICAgICAgICAgICAgICAgICAgICAgICAgICAgICAgICAg ICAgICAgICAgICAgICAgICAgICAgICAgICAgICAgICAgICAgICAgICAgICAgICAgICAgICAgICAgICAN CiAgICAgICAgICAgICAgICAgICAgICAgICAgICAgIC AgICAgICAgICAgICAgICAgICAgICAgICAgICAgICAgICAgICAgICAgICAgICAgICAgICAgICAgICAgIC AgICAgICAgICANCiAgICAgICAgICAgICAgICAgICAgICAgICAgICAgICAgICAgICAgICAgICAgICAgIC AgICAgICAgICAgICAgICAgICAgICAgICAgICAgICAg ICAgICAgICAgICAgICAgICAgICANCjw/bLFkK1yxdDGuarB2W5baCm6OVu5ZQC1dy5WlLFLbOFspolMg GypKCvVpNRGzPnaYIar9JTslRA0SmSXgV6DbR5QrOGnlAL6VUFAtMHTgeSYnTDMjAHQmUqC4FEYuHNoq ZQ2AqCRzXHdfQXCbMBFpCdGqXMWjVJMiVXTfAALkKB WBCVGtWRTcAfAdIXXuWJBpQSlnEKIOAE5QSaWsS3WxlQ35UJaWUx1+VAzzeoIiJzrWNhV3UTFfv1KzBJ t9YV6ZHRVsWytbf2PnYdBqPAGDKEaaAV4BIQY3IPB7LNHqEm3FJWNoC204pxGuMX9MHd1ULdEsKX6kjt 5MQmGzGBBtFysJIgn1KGqjQS7GiTFlAUvUn01prEe2 gxUtkHGVNUJsXGCtlDUPFGMtmYjfzVbuTZShRELySENxPQ0iIXU6OLB1JfQyGNDCWF3PMLAjNXOamIXh RMMaEELOSF2JERuyIZK3RIGiepFciRTaZFacBS7MFZGrowLhJoDeQZAAZJa+Le0JHA6hy6RaCPxqGqNr MR8ovj7PVQyGUqEfG4E1iTWcK2Q0DAaqTz5CABLyNY AuDpIoABSARUohZC7CJL0sqvI3LP1NlTDqMEJpKUBspARzOPf7U23kvSCnRPxgCW6EOQN+Savannah+Pg0KIC GcWSWgOCIvGvIbDTKOHdScD6PjK5JQs8EnW4OoWW03wQhsgaOzPGsfXT8WSZ0pEHMgTCLMBZ3EpWHalI 6mccZwZAMvIREFFlUhN25tmISsIAAlAYCtQJHbLi0S VYXpX7AcluQhmTatcrWePWRyRBJXKC4YQCdqweYjfJAsaMopJI98wWinXF5ZUz5LMjVeQQ4iuv6UsCRw Lt6CHZSoUk2EBKAvZUKwACUwTBL2LJQqRnLcJYywLQGpZZDoCFM1DYZqITSkOA8AGsOqGHRjHmx3WNYt CRGvPKQvwq9VYTOaIAFiEQS7RZMlLDRaSSSuYPmhVE AySKLdPGA2HIVbYHKxSG1IIuQxDMSvZLM8JzLkEEZcZEZste3QMGUiMXFlFpx6AUHnQDHoKKNoPPpdXG QqUCI5JCE5TPRlKXKjHB7XSbLkNRDyJRwfXjOfLKCcSWWurb8PCIDpYIBbCAE2NkWmYEQsFLQmMDqdES HyLHHmXxunYOBeERKnTS7YBkIoFIViTBL7GiaqKFJj YCJxlp0BRMDfJRMeZfeuVHNfBVOvTQXeRItlBIVdBEM8RwZ8ZTTkRBPbJS0AXnJuSAQnHVR7VuUySVDj VBHtir8SGAQsDFQoEJV7EqDrMNEvDXIpCCrwUBTcQMFdNrXjNDHgLBWuVR0QZnEuCEShGcT2ZSBlQMBq BVSppi1KHMAsPDXqSHQ8TEAsOIUkWCHoIAwvSXOeJF XxEVU6WWVuUUCqQB9VZbHuKUWdPmArZRMzLCAkEGEqji0ABWHeGXEuHhYjQNNxDHYoMLYpAXcmZOQzIM HzXgf5OIWmRYVgVS8FTrOcYTMrUtB1LEnkZRJqBGFqtm8XAMBzLETfOhn0SqBsNOTtGQRiVFgaFMBjML X9XTqhRHMpNACpFG5SLhSaNYKtXxK4YMXkDUQmGJAi bq8WXKYrAOKiFWW9IXZbKUGxHZMjCZflNUIrOJY3XJL3RFCtCWOzKG3MDeClSEIhIvCuJSRxBHJiJTAo ya8WNPQaUIIkFxMqTDIbXZJdLFGsQTiwLMWjUOU8WbG1OJZzRRDrFI1NOiCqOVIoVgymGPOvYCXtUZRi yz9IGYPqZFNjOrdjGDZiBETpGAOqHLskNJEaHKH6Vy e0NBEcVFWcXR3ZMdWzZGQmFbvfWqCcDIXvMESujn4RWKRoPHWmKMTjAyRjJMXdWBGlZKo0wmKodTPmOR a2ZR3LT6NspgOiAtvIYk1Al770BZU2KRUvSg4NS4taFx3dHUTkPDBEKb1ZNZm4GRLeAKxjJqQ1KFwcMs MjJAggPdNmUOH4NHrfKvU6NTT+LKgjExEkO9TmHOM4 TMA7OPXxYlA6JxIbIGX6MYThYdg7Ks6bHYONXy1+XBvugEHqhZqhXPFVLnL4EuZpQFjbRUNKQa8X ID Date Data Source [id number] 09/27/2019 08:12:12 PM [facility] Value Range Interpretation Code Description Data Sumaya rce(s) Supporting Document(s) Prothrombin time (PT) 14.2 s 12.5-14.9 [facility] INR in Platelet poor plasma by Coagulation assay 1.07 [facility] Routine intensity oral anticoagulation I NR is typically 2.0-3.0. Target INR must be clinically individualized. ID Date Data Source [id number] 09/27/2019 08:12:12 PM [facility] Value Range Interpretation Code Description Data Sumaya rce(s) Supporting Document(s) aPTT in Platelet poor plasma by Coagulation assay 27.5 s 24.0-34. 0 [facility] ID Date Data Source [id number] 09/27/2019 08:26:49 PM [facility] Value Range Interpretation Code Description Data Sumaya rce(s) Supporting Document(s) Bicarbonate [Moles/volume] in Serum 26 mmol/L 22-29 [facility] Chloride [Moles/volume] in Serum or Plasma 109 mmol/L 98-107 H [facility] Creatinine [Mass/volume] in Serum or Plasma 0.50 mg/dL 0.50-0.90 [facility] Icteric Glucose [Mass/volume] in Serum or Plasma 126 mg/dL 70-140 [facility] Potassium [Moles/volume] in Serum or Plasma 3.9 mmol/L 3.4-5.1 [facility] Sodium [Moles/volume] in Serum or Plasma 143 mmol/L 136-145 [facility] Urea nitrogen [Mass/volume] in Serum or Plasma 6 mg/dL 6-20 [facility] Anion gap 3 in Serum or Plasma 7 mmol/L 8-15 L [facility] Osmolality of Serum or Plasma by calculation 295 mosm/kg 275-300 [facility] Creatinine/Urea nitrogen [Mass Ratio] in Serum or Plasma 13 [facility] Calcium [Mass/volume] in Serum or Plasma 8.7 mg/dL 8.6-10.0 [facility] Glomerular filtration rate/1.73 sq M pre dicted among non-blacks [Volume Rate/Area] in Serum or Plasma by Creatinine-based formula (MDRD) >6 0 [facility] Glomerular filtration rate/1.73 sq M pre dicted among blacks [Volume Rate/Area] in Serum or Plasma by Creatinine-based formula (MDRD) >60 [facility] ID Date Data Source [id number] 09/27/2019 09:01:23 PM [facility] Hospital Name Value Range Interpretation Code Description Data Sumaya rce(s) Supporting Document(s) Leukocytes [#/volume] in Blood by Automated count 5.9 10*3/uL 4-10 [facility] Erythrocytes [#/volume] in Blood by Automated count 3.07 10*6/uL 4.1- 5.3 L [facility] Hemoglobin [Mass/volume] in Blood 7.8 g/dL 11.5-15.5 [facility] Hematocrit [Volume Fraction] of Blood by Automated count 24.0 % 3 6-45 L [facility] Erythrocyte mean corpuscular volume [Entitic volume] by Auto mated count 78.1 fL 80-96 L [facility] Erythrocyte mean corpuscular hemoglobin [Entitic mass] by Automated count 25.6 pg 27-33 L [facility] Erythrocyte mean corpuscular hemoglobin concentration [Mass/volume] by Automated count 32.7 g/dL 32.0-36.0 [facility] E[facility] distribution width [Ratio] by Automated count 16.5 % 11.5-14.5 H [facility] Platelets [#/volume] in Blood by Automated count 251 10*3/uL 150-400 [facility] Differential cell count method - Blood [facility] Neutrophils/100 leukocytes in Blood by Automated count 59 % [facility] Lymphocytes/100 leukocytes in Blood by Automated count 22 % [facility] Monocytes/100 leukocytes in Blood by Automated count 9 % [facility] Eosinophils/100 leukocytes in Blood by Automated count 9 % [facility] Neutrophils [#/volume] in Blood by Automated count 3.48 10*3/uL 1.8-7 .0 [facility] Lymphocytes [#/volume] in Blood by Automated count 1.30 10*3/uL 1.2-4 .0 [facility] Monocytes [#/volume] in Blood by Automated count 0.53 10*3/uL 0-0.8 [facility] Eosinophils [#/volume] in Blood by Automated count 0.53 10*3/uL 0-0.5 H [facility] Variant lymphocytes/100 leukocytes in Blood by Manual count 1 % [facility] Lymphocytes [#/volume] in Blood 0.06 10*3/uL 0 H [facility] Anisocytosis [Presence] in Blood by Light microscopy [facility] Elliptocytes [Presence] in Blood by Light [facility] Microcytes [Presence] in Blood by Light [facility] Poikilocytosis [Presence] in Blood by Light [facility] Polychromasia [Presence] in Blood by Light [facility] ID Date Data Source [id number] 09/27/2019 06:19:27 PM [facility] Name Value Range Interpretation Code Description Data Sumaya rce(s) Supporting Document(s) Glucose [Mass/volume] in Capillary blood by Glucometer 107 mg/dL 70- 140 [facility] ID Date Data Source [id number] 09/27/2019 02:14:00 PM [facility] Name Value Range Interpretation Code Description Data Sumaya rce(s) Supporting Document(s) Leukocytes [#/volume] in Blood by Automated count 8.0 10*3/uL 4.45-10 .71 [facility] Erythrocytes [#/volume] in Blood by Automated count 3.56 10*6/uL 4.20-5.40 Below low normal [facility] Hemoglobin [Moles/volume] in Blood 8.8 g/dL 10.7-15.4 Below low no rmal [facility] Hematocrit [Volume Fraction] of Blood by Automated count 29.8 % 37-47 Below low normal [facility] Erythrocyte mean corpuscular volume [Ent itic volume] in Cord blood by Automated count 83.7 fL 80-96 N [facility] ital Erythrocyte mean corpuscular hemoglobin [Entitic mass] by Automated count 24.7 pg 27-31 Below low normal [facility] pital Erythrocyte mean corpuscular hemoglobin concentration [Mass/volume] in Cord blood 29.5 g/dL 33-37 Below low normal [facility] Erythrocyte distribution width [Entitic volume] by Automated count 15 % 11-15 N [facility] Platelets [#/volume] in Blood by Automated count 298 10*3/uL 130-472 N [facility] Platelet mean volume [Entitic volume] in Blood 9.8 fL 9.1-13.1 N [facility] Neutrophils/100 leukocytes in Blood by Automated count 60.7 % 41- 77 [facility] Neutrophils [#/volume] in Blood by Automated count 4.9 U 1.7-7.6 N [facility] Lymphocytes/100 leukocytes in Blood by Automated count 21.3 % 14- 46 N [facility] Lymphocytes [#/volume] in Blood by Automated count 1.7 U 0.6-4.6 [facility] Monocytes/100 leukocytes in Blood by Automated count 10.4 % 4-12 [facility] Monocytes [#/volume] in Blood by Automated count 0.8 U 0.2-1.2 N [facility] Eosinophils/100 leukocytes in Blood by Automated count 6.8 % 0-7 N [facility] Eosinophils [#/volume] in Blood by Automated count 0.5 U 0.0-0.5 N [facility] Basophils/100 leukocytes in Blood by Automated count 0.4 % 0.4-1 .3 N [facility] Basophils [#/volume] in Blood by Automated count 0.0 U 0.0-0.2 N [facility] NUCLEATED RED BLOOD CELL 0 % [facility] NUCLEATED RED BLOOD CELL# 0 U [facility] Immature granulocytes [Presence] in Blood by Automated count 0-2 N [facility] Immature granulocytes [#/volume] in Blood by Automated count 0.0 U 0-0.1 N [facility] Manual Differential panel - Blood NO [facility] ID Date Data Source [id number] 09/27/2019 10:09:00 AM EST [facility] Reason for ordering culture: [...] Sumaya rce(s) Supporting Document(s) Color of Urine [facility] Appearance of Urine CLEAR [facility] pH of Urine by Test strip 6.0 5-8 [facility] Specific gravity of Urine by Refractometry 1.013 1.005-1.030 [facility] Leukocyte esterase [Presence] in Urine by Test strip NEGATIVE Abnormal (applies to non-numeric results) [facility]A Culture has been added to this specimen per established criteria Nitrite [Presence] in Urine by Test strip NEGATIVE [facility] Protein [Presence] in Urine by Test strip NEGATIVE [facility] Glucose [Mass/volume] in Urine by Automated test strip NEGATIVE NEG ATIVE [facility] Ketones [Presence] in Urine by Test strip NEGATIVE [facility] Urobilinogen [Presence] in Urine 0.2-1 EU/dl [facility] Bilirubin.total [Presence] in Urine by Automated test strip NEGATIVE [facility] Erythrocytes [#/volume] in Urine by Test strip TRACE NEGATIV E Above high normal [facility] @DO MICRO!!!! URINE MICROSCOPIC? (CIF) Microscopic Added [facility] ID Date Data Source [id number] 09/28/2019 08:15:00 AM [facility] Reason for ordering culture: Abnormal fi [...] rce(s) Supporting Document(s) ID Date Data Source [id number] 09/27/2019 10:09:00 AM [facility] Reason for ordering culture: Abnormal fi [...] in Urine by Manual count OCCASIONAL 0-5 [facility] Leukocytes [#/volume] in Urine by Manual count OCCASIONAL 0-5 [facility] Hospital Cells [Type] in Urine sediment by Light microscopy [facility] ID Date Data Source [id number] 09/27/2019 07:10:00 AM [facility] Special Instructions: Lab may order repe at test if initial test elevatedPhysician If elevated, reflex second test in 4-6 hrs Name Value Range Interpretation Code Description Data Sumaya rce(s) Supporting Document(s) Leukocytes [#/volume] in Blood by Automated count 6.2 10*3/uL 4.45-10 .71 N [facility] Erythrocytes [#/volume] in Blood by Automated count 3.56 10*6/uL 4.20-5.40 Below low normal [facility] Hemoglobin [Moles/volume] in Blood 8.9 g/dL 10.7-15.4 Below low no rmal [facility] Hematocrit [Volume Fraction] of Blood by Automated count 29.3 % 37-47 Below low normal [facility] Erythrocyte mean corpuscular volume [Ent itic volume] in Cord blood by Automated count 82.3 fL 80-96 N [facility] ital Erythrocyte mean corpuscular hemoglobin [Entitic mass] by Automated count 25.0 pg 27-31 Below low normal [facility] pital Erythrocyte mean corpuscular hemoglobin concentration [Mass/volume] in Cord blood 30.4 g/dL 33-37 Below low normal [facility] Erythrocyte distribution width [Entitic volume] by Automated count 15 % 11-15 N [facility] Platelets [#/volume] in Blood by Automated count 315 10*3/uL 130-472 N [facility] Platelet mean volume [Entitic volume] in Blood 9.7 fL 9.1-13.1 N [facility] Neutrophils/100 leukocytes in Blood by Automated count 67.0 % 41- 77 N [facility] Neutrophils [#/volume] in Blood by Automated count 4.2 U 1.7-7.6 N [facility] Lymphocytes/100 leukocytes in Blood by Automated count 14.9 % 14- 46 N [facility] Lymphocytes [#/volume] in Blood by Automated count 0.9 U 0.6-4.6 N [facility] Monocytes/100 leukocytes in Blood by Automated count 9.5 % 4-12 N [facility] Monocytes [#/volume] in Blood by Automated count 0.6 U 0.2-1.2 N [facility] Eosinophils/100 leukocytes in Blood by Automated count 7.8 % 0-7 Above high normal [facility] Eosinophils [#/volume] in Blood by Automated count 0.5 U 0.0-0.5 N [facility] Basophils/100 leukocytes in Blood by Automated count 0.5 % 0.4-1 .3 N [facility] Basophils [#/volume] in Blood by Automated count 0.0 U 0.0-0.2 [facility] NUCLEATED RED BLOOD CELL 0 % [facility] NUCLEATED RED BLOOD CELL# 0 U [facility] Immature granulocytes [Presence] in Blood by Automated count 0-2 N [facility] Immature granulocytes [#/volume] in Blood by Automated count 0.0 U 0-0.1 N [facility] Manual Differential panel - Blood NO [facility] ID Date Data Source [id number] 09/27/2019 07:35:00 AM EST [facility] Special Instructions: Lab may order repe at test if initial test elevatedPhysician If elevated, reflex second test in 4-6 hrs Name Value Range Interpretation Code Description Data Sumaya rce(s) Supporting Document(s) Urea nitrogen [Mass/volume] in Serum or Plasma 9 mg/dL 9-23 N [facility] Sodium [Moles/volume] in Serum or Plasma 141 mmol/L 132-146 N [facility] Potassium [Moles/volume] in Serum or Plasma 4.0 mmol/L 3.5-5.5 [facility] Chloride [Moles/volume] in Serum or Plasma 108 mmol/L 99-109 [facility] Carbon dioxide, total [Moles/volume] in Serum or Plasma 25 mmol/L 20 -31 N [facility] Anion gap in Serum or Plasma 12 mmol/L 8-16 N [facility] Glucose [Mass/volume] in Serum or Plasma 114 mg/dL 74-106 Above high normal [facility] Creatinine 0.7 mg/dL 0.5-1.1 [facility] Glomerular filtration rate/1.73 sq M.pre dicted [Volume Rate/Area] in Serum or Plasma Greater Than 60 ABOVE 60 [facility] Alanine aminotransferase [Enzymatic acti vity/volume] in Serum or Plasma by With P-5'-P 21 U/L 10-49 [facility] ital Aspartate aminotransferase [Enzymatic ac tivity/volume] in Serum or Plasma by With P-5'-P 9 U/L 0-33 [facility] pital Alkaline phosphatase [Enzymatic activity/volume] in Serum or Plasma 102 U/L 45-129 N [facility] Calcium [Mass/volume] in Serum or Plasma 9.3 mg/dL 8.5-10.1 [facility] Bilirubin.total [Mass/volume] in Serum or Plasma 0.4 mg/dL 0.3-1.2 [facility] Albumin [Mass/volume] in Serum or Plasma by Bromocresol purple (BCP) dye binding method 3.8 g/dL 3.2-4.8 [facility] ital Protein [Mass/volume] in Serum or Plasma 7.6 g/dL 5.7-8.2 [facility] ID Date Data Source [id number] 09/27/2019 07:36:00 AM EST [facility] Special Instructions: Lab may order repe at test if initial test elevatedPhysician If elevated, reflex second test in 4-6 hrs Name Value Range Interpretation Code Description Data Sumaya rce(s) Supporting Document(s) Lactate [Moles/volume] in Serum or Plasma 1.5 mmol/L 0.5-2.2 [facility] ID Date Data Source [id number] 10/02/2019 07:07:00 AM [facility] Special Instructions: Lab may order repe at test if initial test elevatedPhysician If elevated, reflex second test in 4-6 hrs Name Value Range Interpretation Code Description Data Sumaya rce(s) Supporting Document(s) Bacteria identified in Blood by Culture [facility] NO GROWTH AFTER 5 DAYS ID Date Data Source [id number] 09/27/2019 07:35:00 AM [facility] Special Instructions: Lab may order repe at test if initial test elevatedPhysician If elevated, reflex second test in 4-6 hrs Name Value Range Interpretation Code Description Data Sumaya rce(s) Supporting Document(s) Amylase [Enzymatic activity/volume] in Serum or Plasma 86 U/L 30- 118 [facility] ID Date Data Source [id number] 09/27/2019 07:35:00 AM [facility] Special Instructions: Lab may order repe at test if initial test elevatedPhysician If elevated, reflex second test in 4-6 hrs Name Value Range Interpretation Code Description Data Sumaya rce(s) Supporting Document(s) Lipase [Enzymatic activity/volume] in Serum or Plasma 846 U/L 73-393 Above high normal [facility] @Review & document.Repeated by: Bita wasserman 09/27/19 0735.Result Confirmation: [id number] U/L ID Date Data Source [id number] 09/27/2019 07:35:00 AM [facility] Special Instructions: Lab may order repe at test if initial test elevatedPhysician If elevated, reflex second test in 4-6 hrs Name Value Range Interpretation Code Description Data Sumaya rce(s) Supporting Document(s) Troponin I.cardiac [Mass/volume] in Serum or Plasma Less Than 0.015 0.00-0.09 [facility] Less than 0.09 NG/ML Negative0.10 - 0.77 NG/ML High Risk0.78 NG/ML or Greater PositiveThe WHO defined the cutoff (definition for diagnosis of NH)for this method as 0.78 ng/ml. ID Date Data Source [id number] 09/27/2019 01:52:00 PM [facility] [id number] ON PC TRANSFUSED 09/27/19 1221 Order product and Administer when availa ble: YHGB: 8.9Physiological Evidence Patient needs more Hemoglobin Acute BleedingBlood warmer used? N:: NTransfused within 90 days?: DONT KNOWPre Op? (IF Yes, give date): N Name Value Range Interpretation Code Description Data Sumaya rce(s) Supporting Document(s) ID Date Data Source [id number] 09/27/2019 01:52:00 PM [facility] [id number] ON PC TRANSFUSED 09/27/19 1221 Order product and Administer when availa ble: YHGB: 8.9Physiological Evidence Patient needs more Hemoglobin Acute BleedingBlood warmer used? N:: NTransfused within 90 days?: DONT KNOWPre Op? (IF Yes, give date): N Name Value Range Interpretation Code Description Data Sumaya rce(s) Supporting Document(s) Blood bank studies (set) Yes [facility] Blood Type [facility] Antibody Screen NEGATIVE [facility] ID Date Data Source [id number] 09/27/2019 06:43:00 AM [facility] ED Physician Documentation NAME: NI DIAZ : 1980 AGE: 39 MR#: [id number] SERVICE DATE: 09/27/[address]: Mich Torres [...] another hospital where she can see a icu nurse for upper GI bleeding for possible emergency EGD. I discussed the patient with the ICU attending Dr. Block at [facility] in [facility]. He accepted the patient for transfer. Critical [...] with revision approximately 1 month ago at [facility] with approximately 24-hour history of increasing [...] % (Auto) 67.0, Lymph % (Auto) 14.9, [place] % (Auto) 9.5, Eos % (Auto) 7.8 [...] % (Auto) 67.0, Lymph % (Auto) 14.9, [place] % (Auto) 9.5, Eos % (Auto) 7.8 [...] Chest x-ray-no acute disease CT abdomen and xaouzl-ldjos-bteake loops of bowel, no acute disease Medical [...] rce(s) Supporting Document(s) ID Date Data Source [id number] 09/22/2019 07:59:36 AM EST [facility] Name Value Range Interpretation Code Description Data Sumaya rce(s) Supporting Document(s) Progress Note [facility] ILGRUx8aLfNVKaCb39/GVDfkDTBmo7ZhYYkmLCx1SVnvGJAkQ6NiFDE4tF2gBRZ6XCxYSiUgGIknDxVz [facility] XpTzpJWzJsXQTfEqjSNjQkPApwZpyqmQKzFZ1VuSR2AEMuV77pLZPyQGVjB5MuJVQmASh+Ih4UISHyjC GxDD4FMxiG8G2ElrW9KA7HuZ5JJSEmq/DRF/ccivZpZ8G8uy8hZ2VoOUdZH9gXozM7TYthwW+fVh+Sqk T2hvslKQVB4kONVnToRwXO9DUX7E+/f69MVyAv4d3l /gwiR/SG4s9/AxrdmqTHcnjOHYUKDAs9boeQ5pybm3346sr7g6AFwUs3ucW0F4RcF9fD5Yd5/93RfWfy EHfHg+xQSSf3Z1EEpNL01z4lV7XpP7dJ4d4OH2c9m+FrBB0GzompuewndM468hWjSGwc++3VqZ0BhBBb XGjXy4lRxzPO4AvLXbaR/UEyFN3KxuKRGPivNkZCMH yahZ/VfpmMKgpHs1BZwm8Ak+pnSDzhrju0ReeK0Us5wHiiaEyGh4gNieQ3eMz7wiapTrZNxtHQ885RS9 k/k7kZ+BLbWpPWfXn70Jyta8iP0cHftBq/JL5zSWQcxDAw/vQozbmxjAVDvHv9ADG9Ezf1romuiJe+9N 1kYdwmsDim06+4u1F7pK7GwZiDnapDQUNqG/uJnU0N fiKqlX2oG8zwBJ4/tsT1py/bN8K2zdLIhyk+nEG6O4QLycaCmD7v6j3qivP7R9nacfs2NUIlP5bB+lmT DsmtdkUxYHokoI0rUoq9lcAQaCobUm60nXeMsgETixyqbhNFd/Dheeraj+/WSsMMEkhpF62gw3rnb7QArzzRx [file] AgICAgICAgICAgICAgICAgICAgICAgICAgICAgICAgICAgICAgICAgICAgICAgICAgICAgICAgICAgIC RxTXSjQNSdNZNwBCQqMFAtQAYyYQIlVLStBCPrOIMhNSVdBRVdPZ2OAYEqBBPbVZJfLOEpEFEuKLUcJH AgICAgICAgICAgICAgICAgICAgICAgICAgICAgICAg GQMuRVCcRASxZPGfUIEeNFNiUOUjJXXjOHQiVGBuFNLeRBHaHCSsKZXrJTDrQRJcZR5KOIEhZJIzAQFf ICAgICAgICAgICAgICAgICAgICAgICAgICAgICAgICAgICAgICAgICAgICAgICAgICAgICAgICAgICAg ICAgICAgICAgICAgICAgICAgICAgICAgICAgICAgIA 0KICAgICAgICAgICAgICAgICAgICAgICAgICAgICAgICAgICAgICAgICAgICAgICAgICAgICAgICAgIC CvFZKqBGVkRGDpYNLnDSEgTRYfDFHuPBPzBVTyTXWsXEMyROXnBBAzJK6BHDYyYQKfJBMtHRMdAHGpPL AgICAgICAgICAgICAgICAgICAgICAgICAgICAgICAg MUVoUWMjIYHaCDVbFCAmWLHqMCDuQWCsYTCyQWXmCWKmAWIeOJXlSQGvDCFvZSBcZUUtRD4NVMMvEDHs ICAgICAgICAgICAgICAgICAgICAgICAgICAgICAgICAgICAgICAgICAgICAgICAgICAgICAgICAgICAg ICAgICAgICAgICAgICAgICAgICAgICAgICAgICAgIC WfOX5MCYQqUIQdQXFnDBFmLGOgLPQjHFOmAVYbCKPvTOWzTGCtUVQgVZFjCKQqXMPdHYTpUQGkNNIvZO IqMTGhWNFdSWWgFVKcLOVfXLWhFZLlDJKjUBSnBNQrRXCgYUYnKWVwLEAmHE4VFQLcOITmWSYsDJSfAD AgICAgICAgICAgICAgICAgICAgICAgICAgICAgICAg LESpTVIjRLBoDJUvRIGrXLKlRMIdVVIuVDOgGIIpXKTaTCSsUCUpQQRbQZWcBSHkIJHdCPTpOG4MAWLv ICAgICAgICAgICAgICAgICAgICAgICAgICAgICAgICAgICAgICAgICAgICAgICAgICAgICAgICAgICAg ICAgICAgICAgICAgICAgICAgICAgICAgICAgICAgIC IvBRAqSV1RRZLqLYTfOGRwXYTfMEHqQSPuKMQcFPDcEQQwHJJiVITnJLQhRQPqCDIrYRLdNVXuXDXrOQ PyJXNtKTVsWIDpJVSbXGWpFCUpAUVrKRCwNMPaRZViBGKwNEPuXPWsIROpLWLfZB2SLM01dNNwy3G2VR FnMQ5nfad/Cm5LDRqrbyRhwGHnCF5JXoWkSP4gex8V DeSdOD2bnf5GJLbZShTeV6E2qXRlOGXlONYFSxCeU24sTFncEu27OJyxKZZgYnAsOPd9Cb9EMuPdP8ds CWCeTaZ2UELfNwSbCGqkZB5Es8LxoISgVPg+Io0EMF3cy0BaJFfcXFCfNF7jtt0DSHcQTqUjH4MihdN7 YCFaKDUdFu6AEQFmUONdvNJyMDTpBDLEGqOgI9OhhR 48BWUJVl8+FUgsnjAiTnyLZpXiNTFja2VtWGo6OO6PQQZyGWu2tQRoRQWiU3Yqu2FlAa61WPZgOyfbJg Xwc6OuQqEBrXYjaWMmDXGOTWYehBDtYo7cLqQeQTzmQTJ4KKRyGI0wEScpLK5CHTI7PDobWLNrYIDrL2 nZGsVwHHEsDSLyfDdrVL5TOpVtB2TdwzStdREnYOWt IFINCj4+RPjpdtCuQatWIqSkTCOsm0QrLPu6PU3XLZRwFBtsVB4JVFXyrR1oRQfpAS8IAoGgIcEtBNTB CsWkV44vxBCiJZh8D9YzAkJwYINgAbjvOEUoRFccXaOtHJLuFsSzOQweKM3+ID4+VVdsDS3QCFacbcNu LCDjDi7UKGHsJVEuZB2cHLSqTRSkK7M6sGphSZGAQt PqQ4wzmkurNZ4pLSDeZ135iImenmDoVWT6IZTgZq7HEXRvPED5CIPmqDVrGIykAABFOBtxHP1LbSMlLC Q1wZ2sLCqyANZwGRYcK4gWVxEssPsiOR17yTpkocKedJYtITm+My6DJJ3vh7QdMUw7rcIdZDijCBWuGB xeZRWwJFVdQPBnDOR4GES8MHTKUiBgYJBlLWOxXYbr KCOdTLFbgx6PEKBpHYBiDCAcLoPcMWEjLNAjSTszHBRuLVCzDfXmXUFdGSDfSQ1YFbTrGVTvXIMtVUlw GNRkEPNaea5OUJDoFLLhBmZ4VcBjVZLpZMBwIMduJFPvYMOfFySoGEUxHGJmTI2EHuZaDNDxTCK9VcYe OFAsTRGiht1PGRRpKSOrOHveTsHuHMDdPJBzHMkfGG YqQYG9NYi9IDHnXQVoEB3ZOmXqKKQkONAdCVFfCZNdPEPrqs5VQIAzXYPaHgB6LjEbEWZeZDGwABclIH CrXKN9WPPqGJQrVVTeHW2OWfDuAFDpTuRzILHrQGTfHBZlkd6FJXRqGWLjALB9XUUkMRZtIKSaPUcvFJ EyQQRdRGteZWSiGHKoIC5YNbKxSFDfOcW4NYWdSMVq HNSyij6PKMYdRGGeWYS7YBZtRGCfCJUbCRwgSVWmAKWwEVbiWZYdCAWhPK6SEnKaWGAmEnL9LrzvHIIt EFRfhh9SSRBzNGUuZzK6SRJnFUXeYUBjOBskJUDgJKDbKmG4EBQhPQJnEJ2WCvOlVLtjZXYIZba3KJnf B5r8BFLfXy6TC2Jge6ZwDtCkHHCVPMknCN5yghGcQS MaNi5EX0kYHmozCZkmIHH9HMC9AnXeNrNbZEm4Pkl6KmWzEKAwHqZ4Mx6jHPDrWBVuRsqiEpVxROSaFO N6DSKiHEzvLPJ4RHVoDvrzOtHpRK3NTl8PRiY3PZX7sSOoOk0ASqR8RIJTCuNsMF4EKFm= ID Date Data Source [id number] 09/21/2019 04:27:14 PM [facility] Name Value Range Interpretation Code Description Data Sumaya rce(s) Supporting Document(s) Progress Note [facility] ESDDEg6yYpMJQcAr38/PVFviRSYdj5IrPEojLUl2AInfCDUuC7PfEZW0pB2rYKV4QIpIZrMqTIfgWgHs lbm [file] LhDCWaFDI2HBC1WrKhJU4TIy9GTwA9GRZ9oANsAq3YZyn5GPjQZbXgIR9GJWz= ID Date Data Source [id number] 09/11/2019 03:55:30 PM EST [facility] Name Value Range Interpretation Code Description Data [facility] Document(s) Discharge Summary [facility] RCTMUf3yMpDDJmOr18/ATWqfJYKwf9SaLYakWOf7XCurKFCmU5PqGKV0kH5pFBF4XNhGXmAoSJvgQQWq lbm [file] ICAgICAgICAgICAgICAgICAgICAgICAgICAgICAgICAgICAgICAgICAgICAgICAgICAgICAgICAgICAg ZBVmPPWuRMKeMACkUQZrVZ1FJMKfYKPlISWuXJBcFGVlGLInUPHaCSQnANBlCFIsJSWqFVFhUILhMLPg ICAgICAgICAgICAgICAgICAgICAgICAgICAgICAgIC WfVTSgZMYdKINxPDPeYUBsIWGjEISnGODeFL8QNOFkDXYpWLAnOWYhRIDjNKGeAZEnXYXzRRQdJEPdJY AgICAgICAgICAgICAgICAgICAgICAgICAgICAgICAgICAgICAgICAgICAgICAgICAgICAgICAgICAgIC LcGJBmNTMtPM7FNTBhDLByHVSnHOJkWDTmNETqSIGp ICAgICAgICAgICAgICAgICAgICAgICAgICAgICAgICAgICAgICAgICAgICAgICAgICAgICAgICAgICAg FMIvAACnAFFgLGFvZKFtWGIkIN2JLFXtMABfXZLrFADoLRIgCGZeGAEvWNTnRZQwWWEfAMEaFAVkFIPc ICAgICAgICAgICAgICAgICAgICAgICAgICAgICAgIC HfPVXsTSDqWNRiFYXuQLLvBPNqWRVxAXRlLKGrKK6QJMMhPAYxHGUfBTUrZHLtVOTnHPWgINPyMZQyYC AgICAgICAgICAgICAgICAgICAgICAgICAgICAgICAgICAgICAgICAgICAgICAgICAgICAgICAgICAgIC OmCIMrZXLrCJOpSH1IHVYtENJvBIIuNVMmIZAkWJQi ICAgICAgICAgICAgICAgICAgICAgICAgICAgICAgICAgICAgICAgICAgICAgICAgICAgICAgICAgICAg YCZhDVGrPEUmRKVeUIWfOOSjTHRsLX4HJWDuVUCdQORyMSVuHAVlUUHmOOCsINAeHOKzTPHpXZVeXIRx ICAgICAgICAgICAgICAgICAgICAgICAgICAgICAgIC EoSCHoZZJyYKVgXMBrIKAqXQDnXAOpDOCjKITcLOTcOQ7ZPXImWFMzLSKoFXSaISXmFSMuSAFtBGFgOQ AgICAgICAgICAgICAgICAgICAgICAgICAgICAgICAgICAgICAgICAgICAgICAgICAgICAgICAgICAgIC JrAHRtVVQdMOFbTLOwZE7WURHxAUSjUPBqRKMaYAHd ICAgICAgICAgICAgICAgICAgICAgICAgICAgICAgICAgICAgICAgICAgICAgICAgICAgICAgICAgICAg PKSxYQKsEMLcSJWrZDYvJKMuXFYbBUZuQL8WNC05pLIkz1U1TWPwTC9cfnj/Sv3YPGwmhyJdcSHmCG1W LjEwPH7tqf1XGhYeLB8xer8UWTjEYhYgZ5N8tCIqEJ GkMZWKOkWcB44tXApmRh49ORmdWXUgUdLyHZu3Uj8QZcXjB1jsPZGgToN7ZKVkCkI4QZJnQaY2OIVyTh ViDFXeHGUmQQOvIHOVGBP1WBMdUuAxBkZmNIJtWSjxUCXMZR8UMvPzA4LueN55DZlBLf0+DQplbmRvYm xIBaX4VWDzf7BqZId7JD2GZWPfXpyps8NaHQhcIXNO BWagFY7VUTU5HSU2XBGsJz9RHTLmS954bqRyPU1MJb9HViBzQP4mym5EOIzyUILiGluQCtc1LKtmZD6F bKOrQLxVbAMbqIBeY2GbI2LxxXQptPRmzVCRHCsmlBDSKUa0iMt4VYEWMVDfoBIrQB6xJu6dTZU2YSTz WsD8GLFMQY9VTFGhWEQijUKzRGEcGXNEIT1EVFkbZD R1SHOutrPuxGKzQAaeSJ9SBNZovtPqLGHhVCFBERl+Fe3PYV3up4EvGIl1OOIpZX8fqh9KXZlHHqNmP3 E6qWJhI9X1HAfcWp1TDAVqYCTsLMEaUTNXVUrfHS3RDX3yxzS7OR6OlCOkQTSnCXCimHWmGEy1V84elI CmSKycPP0ZXET+Savannah+Gq9UJVNaNXUqTGGfNwSvQIIO BjPiG3FoA3MHp9SjX6NxHX11jRcdyzBdPUchYD6BFB9nXIYsLPFUFI1WjYGewM7ffnC3AzTxHFQCNzXf C35uhUJrQCGuSSR9YIGuRx4GMFPcG8UxoeHgvWrcfqUbQUDbZJJQSZ8HOAxwalWraQFqiAomYV94qMrd VJ3KZp9ESkYxCH2zsa9BmCOjCk3VBDS4UV7CWWYzBH InZBPpKPD3NCUrNeLcXAguQZIqNRLnYYC0FWFcYAIjIM5RBtGnXTZqVYw2MWvvJNEiGUBbdq9OHPMcJN Y0UKWhPIJyWQPnKWGwKStyRCUrGTUeJBH7TXVhYZDoOF2XJpIkUGBtSOP5WzXmTFIwUYWevf9QEERlSY HoYbIdWcNxSBNhKAWwJHmvXHRpPJG7KAGmJTUtBMUg KS3CVnTfHJKtZCJnJAUeRJEvAYLixx5BLLOjBDJoSNw2EENzMEKgFINvCMihCSYwLHB1XOiwBHXiJYLn WU9JQpMnSBWjKNXcEiTzUEPrAZQipw1POFMsBDXjXfBrZmHgGFNgRSTuGUdaWUBqYDN5QkV2MAGoBLMy ZS5NHmKvNLSbPAV2NxIiDQDtQEKxfe5RBTCjWYUgDM B9ZHBeAGUaCVVqXEzbNKZhXHX5OHi4GGRmXOIqMU7EVuYhNJJgYoQ7HXLmZUXbHBZqiq6UJFWvDYOkVw I7JjEuCYZhEWGdPUrgTEKbAGGfKiS8CUHpTQZuLV3DVpOyKQOkDdJ7KTVhAKFqEISafc0KXDWzUJTxNM PfRHOgVDFiZMZnGIxdDBHbAMB4RnKdJBDrLJOyRA1Q LuLhPWZmUlY7GUExOLZbRVEtnz0ACOIcTCFdGWj3LxYqHZPqITIeHOnuSWUoXJI8RSI3KCCvXLTqQB5L HiZnISFvHzJeLOAbVMBnUGKibw3DSWBpMYDpTxQmKvZlXDMzFPAjXOouJUTeCYW3WkXuTQQfXEMwDZ9N AsXiKBSjGmo9UEJhAQQaYJOyyk5TODMlTONvIEk2BU WqOGRlTCMuUHpeBFCxPJN0RTi1OYErBRWvJZ8AHgYaIBMcQznwKKUyRGSjOKXnzi4HHGJjWYSaCGPdWL VuRHJeSUAaMSjhCUDsXQA1LielZEWqFQPiKM7UCdOiAACdJII7TwToCZZhNDTrxf8WBEGgVID8WLfjJc CpJBQzCNGgSWlxYHIbEJYwLFhxBTPmXWZhWG6VVhFz RJPdURB3OQChPOCmNUExgf6FRQGkBCF5HbL0ZnSgKIGvDPAdZXhtESPeUUK7KFx7NUAkAUDzSO4WZlZn CBNvETL6WMAySIRnZRRgbw9UFFVvWIQ9Pov8YhDoJBQlQQYuIOxrKBVtAJG1NPPdVEWrRSQgFF5IWzIc FKPdSWptDZZlDAJwQGCufd3VGVJyMOE1Jrw1QPAeRK BgNYHgZAkmAFZmCPU5WyTaMFNtLXOuXU8UUdCmTMNpVOs3DkZfYBVrOKQazl5KGWGpYDQ6SMA7GfRqJB FmBHIhQPk1tiQybHTsXEj8HX4QO0OadqNjRJoFEq0Wt320EEO9ZBRsGq5WH9faJb7dHWJhREIZSs5ASQ q6IKIsDYXlKOVaQTM2RCI3WdX1CvY7MqQiYiJ3KyPl M2E+RSvtYFH0OeG6IvBtICLxKev6Vfw1UtT0O1YuTZR9TpPiBM3sXKNTWe2+DQpzdGFydHhyZWYNCjQ5 GTC6TDvcIAWRSz5D ID Date Data Source [id number] 09/11/2019 08:01:04 AM [facility] Name Value Range Interpretation Code Description Data Sumaya rce(s) Supporting Document(s) Glucose [Mass/volume] in Capillary blood by Glucometer 125 mg/dL 70- 140 [facility] ID Date Data Source [id number] 09/11/2019 05:20:49 AM [facility] Name Value Range Interpretation Code Description Data Sumaya rce(s) Supporting Document(s) Leukocytes [#/volume] in Blood by Automated count 6.2 10*3/uL 4-10 [facility] Erythrocytes [#/volume] in Blood by Automated count 3.30 10*6/uL 4.1- 5.3 L [facility] Hemoglobin [Mass/volume] in Blood 8.6 g/dL 11.5-15.5 [facility] Hematocrit [Volume Fraction] of Blood by Automated count 26.4 % 3 6-45 L [facility] Erythrocyte mean corpuscular volume [Entitic volume] by Auto mated count 80.0 fL 80-96 [facility] Erythrocyte mean corpuscular hemoglobin [Entitic mass] by Automated count 26.2 pg 27-33 L [facility] Erythrocyte mean corpuscular hemoglobin concentration [Mass/volume] by Automated count 32.7 g/dL 32.0-[facility] width [Ratio] by Automated count 17.0 % 11.5-14.5 [facility] Platelets [#/volume] in Blood by Automated count 345 10*3/uL 150-400 [facility] Differential cell count method - Blood [facility] Neutrophils/100 leukocytes in Blood by Automated count 62 % [facility] Lymphocytes/100 leukocytes in Blood by Automated count 16 % [facility] Monocytes/100 leukocytes in Blood by Automated count 13 % [facility] Eosinophils/100 leukocytes in Blood by Automated count 8 % [facility] Basophils/100 leukocytes in Blood by Automated count 1 % [facility] Neutrophils [#/volume] in Blood by Automated count 3.87 10*3/uL 1.8-7 .0 [facility] Lymphocytes [#/volume] in Blood by Automated count 1.00 10*3/uL 1.2-4 .0 L [facility] Monocytes [#/volume] in Blood by Automated count 0.82 10*3/uL 0-0.8 H [facility] Eosinophils [#/volume] in Blood by Automated count 0.47 10*3/uL 0-0.5 [facility] Basophils [#/volume] in Blood by Automated count 0.04 10*3/uL 0-0.2 [facility] Nucleated erythrocytes/100 leukocytes [Ratio] in Blood by Automated count 0 /100{WBCs} 0-0 [facility] ID Date Data Source [id number] 09/11/2019 05:34:15 AM [facility] Value Range Interpretation Code Description Data Sumaya rce(s) Supporting Document(s) Bicarbonate [Moles/volume] in Serum 29 mmol/L 22-29 [facility] Chloride [Moles/volume] in Serum or Plasma 98 mmol/L 98-107 [facility] Creatinine [Mass/volume] in Serum or Plasma 0.59 mg/dL 0.50-0.90 [facility] Glucose [Mass/volume] in Serum or Plasma 116 mg/dL 70-140 [facility] Potassium [Moles/volume] in Serum or Plasma 4.5 mmol/L 3.4-5.1 [facility] Sodium [Moles/volume] in Serum or Plasma 135 mmol/L 136-145 L [facility] Urea nitrogen [Mass/volume] in Serum or Plasma 18 mg/dL 6-20 [facility] Anion gap 3 in Serum or Plasma 8 mmol/L 8-15 [facility] Osmolality of Serum or Plasma by calculation 283 mosm/kg 275-300 [facility] Creatinine/Urea nitrogen [Mass Ratio] in Serum or Plasma 30 [facility] Calcium [Mass/volume] in Serum or Plasma 8.5 mg/dL 8.6-10.0 L [facility] Glomerular filtration rate/1.73 sq M pre dicted among non-blacks [Volume Rate/Area] in Serum or Plasma by Creatinine-based formula (MDRD) >6 0 [facility] Glomerular filtration rate/1.73 sq M pre dicted among blacks [Volume Rate/Area] in Serum or Plasma by Creatinine-based formula (MDRD) >60 [facility] ID Date Data Source [id number] 09/11/2019 05:34:15 AM [facility] Value Range Interpretation Code Description Data Sumaya rce(s) Supporting Document(s) Magnesium [Mass/volume] in Serum or Plasma 2.7 mg/dL 1.6-2.6 H [facility] ID Date Data Source [id number] 09/11/2019 05:34:15 AM [facility] Value Range Interpretation Code Description Data Sumaya rce(s) Supporting Document(s) Phosphate [Mass/volume] in Serum or Plasma 4.4 mg/dL 2.5-4.5 [facility] ID Date Data Source [id number] 09/11/2019 12:00:54 AM [facility] Value Range Interpretation Code Description Data Sumaya rce(s) Supporting Document(s) Glucose [Mass/volume] in Capillary blood by Glucometer 120 mg/dL 70- 140 [facility] ID Date Data Source [id number] 09/10/2019 04:07:42 PM [facility] Value Range Interpretation Code Description Data Sumaya rce(s) Supporting Document(s) Glucose [Mass/volume] in Capillary blood by Glucometer 110 mg/dL 70- 140 [facility] ID Date Data Source [id number] 09/10/2019 08:13:19 AM [facility] Value Range Interpretation Code Description Data Sumaya rce(s) Supporting Document(s) Glucose [Mass/volume] in Capillary blood by Glucometer 135 mg/dL 70- 140 [facility] ID Date Data Source [id number] 09/10/2019 05:14:03 AM [facility] Value Range Interpretation Code Description Data Sumaya rce(s) Supporting Document(s) Leukocytes [#/volume] in Blood by Automated count 7.8 10*3/uL 4-10 [facility] Erythrocytes [#/volume] in Blood by Automated count 3.38 10*6/uL 4.1- 5.3 [facility] Hemoglobin [Mass/volume] in Blood 9.0 g/dL 11.5-15.5 [facility] Hematocrit [Volume Fraction] of Blood by Automated count 26.9 % 3 6-45 [facility] Erythrocyte mean corpuscular volume [Entitic volume] by Auto mated count 79.6 fL 80-96 [facility] Erythrocyte mean corpuscular hemoglobin [Entitic mass] by Automated count 26.6 pg 27-33 [facility] Erythrocyte mean corpuscular hemoglobin concentration [Mass/volume] by Automated count 33.4 g/dL 32.0-36.0 [facility] width [Ratio] by Automated count 17.2 % 11.5-14.5 [facility] Platelets [#/volume] in Blood by Automated count 316 10*3/uL 150-400 [facility] Differential cell count method - Blood [facility] Neutrophils/100 leukocytes in Blood by Automated count 69 % [facility] Lymphocytes/100 leukocytes in Blood by Automated count 14 % [facility] Monocytes/100 leukocytes in Blood by Automated count 10 % [facility] Eosinophils/100 leukocytes in Blood by Automated count 6 % [facility] Basophils/100 leukocytes in Blood by Automated count 1 % [facility] Neutrophils [#/volume] in Blood by Automated count 5.38 10*3/uL 1.8-7 .0 [facility] Lymphocytes [#/volume] in Blood by Automated count 1.05 10*3/uL 1.2-4 .0 L [facility] Monocytes [#/volume] in Blood by Automated count 0.80 10*3/uL 0-0.8 [facility] Eosinophils [#/volume] in Blood by Automated count 0.49 10*3/uL 0-0.5 [facility] Basophils [#/volume] in Blood by Automated count 0.05 10*3/uL 0-0.2 [facility] Nucleated erythrocytes/100 leukocytes [Ratio] in Blood by Automated count 0 /100{WBCs} 0-0 [facility] ID Date Data Source [id number] 09/10/2019 05:27:29 AM [facility] Name Value Range Interpretation Code Description Data Sumaya rce(s) Supporting Document(s) Bicarbonate [Moles/volume] in Serum 27 mmol/L 22-29 [facility] Chloride [Moles/volume] in Serum or Plasma 100 mmol/L 98-107 [facility] Creatinine [Mass/volume] in Serum or Plasma 0.58 mg/dL 0.50-0.90 [facility] Glucose [Mass/volume] in Serum or Plasma 112 mg/dL 70-140 [facility] Potassium [Moles/volume] in Serum or Plasma 5.1 mmol/L 3.4-5.1 [facility] Sodium [Moles/volume] in Serum or Plasma 136 mmol/L 136-145 [facility] Urea nitrogen [Mass/volume] in Serum or Plasma 23 mg/dL 6-20 H [facility] Anion gap 3 in Serum or Plasma 9 mmol/L 8-15 [facility] Osmolality of Serum or Plasma by calculation 286 mosm/kg 275-300 [facility] Creatinine/Urea nitrogen [Mass Ratio] in Serum or Plasma 39 [facility] Calcium [Mass/volume] in Serum or Plasma 9.5 mg/dL 8.6-10.0 [facility] Glomerular filtration rate/1.73 sq M pre dicted among non-blacks [Volume Rate/Area] in Serum or Plasma by Creatinine-based formula (MDRD) >6 0 [facility] Glomerular filtration rate/1.73 sq M pre dicted among blacks [Volume Rate/Area] in Serum or Plasma by Creatinine-based formula (MDRD) >60 [facility] ID Date Data Source [id number] 09/10/2019 05:27:29 AM [facility] Value Range Interpretation Code Description Data Sumaya rce(s) Supporting Document(s) Magnesium [Mass/volume] in Serum or Plasma 2.3 mg/dL 1.6-2.6 [facility] ID Date Data Source [id number] 09/10/2019 05:27:29 AM [facility] Value Range Interpretation Code Description Data Sumaya rce(s) Supporting Document(s) Phosphate [Mass/volume] in Serum or Plasma 4.1 mg/dL 2.5-4.5 [facility] ID Date Data Source [id number] 09/10/2019 12:14:04 AM [facility] Value Range Interpretation Code Description Data Sumaya rce(s) Supporting Document(s) Glucose [Mass/volume] in Capillary blood by Glucometer 130 mg/dL 70- 140 [facility] ID Date Data Source [id number] 09/09/2019 04:15:32 PM [facility] Value Range Interpretation Code Description Data Sumaya rce(s) Supporting Document(s) Glucose [Mass/volume] in Capillary blood by Glucometer 93 mg/dL 70- 140 [facility] ID Date Data Source [id number] 09/09/2019 08:13:43 AM [facility] Value Range Interpretation Code Description Data Sumaya rce(s) Supporting Document(s) Glucose [Mass/volume] in Capillary blood by Glucometer 150 mg/dL 70- 140 H [facility] ID Date Data Source [id number] 09/09/2019 04:04:49 AM [facility] Value Range Interpretation Code Description Data Sumaya rce(s) Supporting Document(s) Leukocytes [#/volume] in Blood by Automated count 7.2 10*3/uL 4-10 [facility] Erythrocytes [#/volume] in Blood by Automated count 3.28 10*6/uL 4.1- 5.3 L [facility] Hemoglobin [Mass/volume] in Blood 8.5 g/dL 11.5-15.5 [facility] Hematocrit [Volume Fraction] of Blood by Automated count 25.8 % 3 6-45 L [facility] Erythrocyte mean corpuscular volume [Entitic volume] by Auto mated count 78.9 fL 80-96 L [facility] Erythrocyte mean corpuscular hemoglobin [Entitic mass] by Automated count 25.9 pg 27-33 L [facility] Erythrocyte mean corpuscular hemoglobin concentration [Mass/volume] by Automated count 32.8 g/dL 32.0-[facility].0 [facility] width [Ratio] by Automated count 17.1 % 11.5-14.5 H [facility] Platelets [#/volume] in Blood by Automated count 272 10*3/uL 150-400 [facility] Differential cell count method - Blood [facility] Neutrophils/100 leukocytes in Blood by Automated count 69 % [facility] Lymphocytes/100 leukocytes in Blood by Automated count 13 % [facility] Monocytes/100 leukocytes in Blood by Automated count 11 % [facility] Eosinophils/100 leukocytes in Blood by Automated count 6 % [facility] Basophils/100 leukocytes in Blood by Automated count 1 % [facility] Neutrophils [#/volume] in Blood by Automated count 5.03 10*3/uL 1.8-7 .0 [facility] Lymphocytes [#/volume] in Blood by Automated count 0.90 10*3/uL 1.2-4 .0 [facility] Monocytes [#/volume] in Blood by Automated count 0.75 10*3/uL 0-0.8 [facility] Eosinophils [#/volume] in Blood by Automated count 0.44 10*3/uL 0-0.5 [facility] Basophils [#/volume] in Blood by Automated count 0.05 10*3/uL 0-0.2 [facility] Nucleated erythrocytes/100 leukocytes [Ratio] in Blood by Automated count 0 /100{WBCs} 0-0 [facility] ID Date Data Source [id number] 09/09/2019 04:18:42 AM [facility] Name Value Range Interpretation Code Description Data Sumaya rce(s) Supporting Document(s) Bicarbonate [Moles/volume] in Serum 26 mmol/L 22-29 [facility] Chloride [Moles/volume] in Serum or Plasma 101 mmol/L 98-107 [facility] Creatinine [Mass/volume] in Serum or Plasma 0.71 mg/dL 0.50-0.90 [facility] Glucose [Mass/volume] in Serum or Plasma 138 mg/dL 70-140 [facility] Potassium [Moles/volume] in Serum or Plasma 5.1 mmol/L 3.4-5.1 [facility] Sodium [Moles/volume] in Serum or Plasma 136 mmol/L 136-145 [facility] Urea nitrogen [Mass/volume] in Serum or Plasma 22 mg/dL 6-20 H [facility] Anion gap 3 in Serum or Plasma 8 mmol/L 8-15 [facility] Osmolality of Serum or Plasma by calculation 288 mosm/kg 275-300 [facility] Creatinine/Urea nitrogen [Mass Ratio] in Serum or Plasma 31 [facility] Calcium [Mass/volume] in Serum or Plasma 9.5 mg/dL 8.6-10.0 [facility] Glomerular filtration rate/1.73 sq M pre dicted among non-blacks [Volume Rate/Area] in Serum or Plasma by Creatinine-based formula (MDRD) >6 0 [facility] Glomerular filtration rate/1.73 sq M pre dicted among blacks [Volume Rate/Area] in Serum or Plasma by Creatinine-based formula (MDRD) >60 [facility] ID Date Data Source [id number] 09/09/2019 04:18:42 AM [facility] Name Value Range Interpretation Code Description Data Sumaya rce(s) Supporting Document(s) Magnesium [Mass/volume] in Serum or Plasma 2.4 mg/dL 1.6-2.6 [facility] ID Date Data Source [id number] 09/09/2019 04:18:42 AM [facility] Name Value Range Interpretation Code Description Data Sumaya rce(s) Supporting Document(s) Phosphate [Mass/volume] in Serum or Plasma 4.7 mg/dL 2.5-4.5 H [facility] Procedure Social History Code Duration Value Status Description Data Source(s ) Smoking 10/19/2020 12:02:00 AM EST Denies Ever Smoked complete d Denies Ever Smoked [facility] Smoking 08/25/2020 12:00:00 AM EST Never Smoker completed Never S moker eCW1 ([facility]) Smoking 08/25/2020 12:00:00 AM EST Never Smoker completed Never S moker eCW1 ([facility]) Smoking 08/25/2020 12:00:00 AM EST Never Smoker completed Never S moker eCW1 ([facility]) Smoking 08/25/2020 12:00:00 AM EST Never Smoker completed Never S moker eCW1 ([facility]) Smoking 08/25/2020 12:00:00 AM EST Never Smoker completed Never S moker eCW1 ([facility]) Smoking 08/02/2020 12:00:00 AM EDT Never smoker completed Never s moker [facility] Alcohol intake 08/02/2020 12:00:00 AM EDT Never completed [facility] Smoking 04/21/2020 12:00:00 AM EDT Never Smoker completed Never S moker eCW1 ([facility]) Smoking 04/21/2020 12:00:00 AM EDT Never Smoker completed Never S moker eCW1 ([facility]) Smoking 04/21/2020 12:00:00 AM EDT Never Smoker completed Never S moker eCW1 ([facility]) Smoking 04/05/2020 12:00:00 AM EDT Never Smoker completed Never S moker eCW1 ([facility]) Smoking 04/05/2020 12:00:00 AM EDT Never Smoker completed Never S moker eCW1 ([facility]) Smoking 03/28/2020 12:00:00 AM EDT Never Smoker completed Never S moker eCW1 ([facility]) Smoking 03/28/2020 12:00:00 AM EDT Never Smoker completed Never S moker eCW1 ([facility]) Smoking 03/28/2020 12:00:00 AM EDT Never Smoker completed Never S moker eCW1 ([facility]) Smoking 03/28/2020 12:00:00 AM EDT Never Smoker completed Never S moker eCW1 ([facility]) Smoking 02/18/2020 12:00:00 AM EDT Never Smoker completed Never S moker eCW1 ([facility]) Smoking 02/18/2020 12:00:00 AM EDT Never Smoker completed Never S moker eCW1 ([facility]) Alcohol intake 02/10/2020 12:00:00 AM EDT Current non-d sherice of alcohol (finding) completed Current non-drinker of alcohol (finding) [facility] Tobacco use and exposure 02/10/2020 12:00:00 AM EDT Never used co mpleted Never used [facility] Smoking 02/10/2020 12:00:00 AM EDT Never smoker completed Never [facility] Smoking 02/10/2020 12:00:00 AM EDT Never smoker completed Never [facility] Alcohol intake 11/16/2019 12:00:00 AM EST Current non-d sherice of alcohol (finding) completed Current non-drinker of alcohol (finding) [facility] Smoking 11/16/2019 12:00:00 AM EST Never smoker completed Never [facility] Alcohol intake 10/27/2019 12:00:00 AM EST Current non-d sherice of alcohol (finding) completed Current non-drinker of alcohol (finding) [facility] Smoking 10/27/2019 12:00:00 AM EST Never smoker completed Never [facility] Alcohol intake 10/05/2019 12:00:00 AM EST Current non-d sherice of alcohol (finding) completed Current non-drinker of alcohol (finding) [facility] Smoking 10/05/2019 12:00:00 AM EST Never smoker completed Never [facility] Alcohol intake 10/05/2019 12:00:00 AM EST Current non-d sherice of alcohol (finding) completed Current non-drinker of alcohol (finding) [facility] Alcohol intake 09/28/2019 12:00:00 AM EST Current non-d sherice of alcohol (finding) completed Current non-drinker of alcohol (finding) [facility] Smoking 09/28/2019 12:00:00 AM EST Never smoker completed Never [facility] 09/27/2019 06:56:00 AM EST Never smoker completed Never [facility] Smoking 09/27/2019 06:56:00 AM EST Never smoker completed Never [facility] 09/27/2019 06:56:00 AM EST Never smoker completed Never [facility] Smoking 09/27/2019 06:56:00 AM EST Never smoker completed Never [facility] 09/27/2019 06:56:00 AM EST Never smoker completed Never s [facility] Smoking 09/27/2019 06:56:00 AM EST Never smoker completed Never s [facility] Alcohol intake 09/21/2019 12:00:00 AM EST Current non-d sherice of alcohol (finding) completed Current non-drinker of alcohol (finding) [facility] Smoking 09/21/2019 12:00:00 AM EST Never smoker completed Never s [facility] Vital Signs ID Date Data Source UNK Name Value Range Interpretation Code Description Data Source(s) Deprecated Oxygen saturation in Capillary blood by Oximetry 96 % Normal (applies to non-numeric results) 96 % [facility] Systolic blood pressure 97 mm[Hg] Normal (applies t o non-numeric results) 97 mm[Hg] [facility] Body temperature 37 homer Normal (applies to non-numeric results) 37 homer [facility] Respiratory rate 18 min Normal (applies to non-numeric results) 18 min [facility] Heart rate 102 min Normal (applies to non-numeric resul ts) 102 min [facility] Diastolic blood pressure 63 mm[Hg] Normal (applies to non-numeric results) 63 mm[Hg] [facility] Body height 169.782654 cm Normal (applies to non-nume zaina results) 169.627371 cm [facility] Body weight Measured 69.9 kg Normal (applies to non-num zeb results) 69.9 kg [facility] Body mass index (BMI) [Ratio] 24.19 kg/m2 No rmal (applies to non-numeric results) 24.19 kg/m2 [facility] Diastolic blood pressure 73 mm[Hg] 73 mm[Hg] MED[facility]) Systolic blood pressure 109 mm[Hg] 109 mm[Hg] M EDENT ([facility], [facility]) Body mass index (BMI) [Ratio] 24.1 kg/m2 24.1 k g/m2 [facility] ([facility]) Body height 67 [in_i] 67 [in_i] [facility] 5'7" Body weight 154.00 [lb_av] 154.00 [lb_av] MEDEN T ([facility], [facility]) Body temperature 97.9 [degF] 97.9 [degF] MEDENT ([facility], [facility]) Oxygen saturation in Arterial blood by Pulse oximetry 97 % 97 % MEDENT ([facility], [facility]) Respiratory rate 16 /min 16 /min MEDENT ( [facility], [facility]) Heart rate 105 /min 105 /min MEDENT ([facility], [facility]) Diastolic blood pressure 56 mm[Hg] 56 mm[Hg] eCW1 ([facility]) Systolic blood pressure 100 mm[Hg] 100 mm[Hg] e CW1 ([facility]) Body temperature 97.3 [degF] 97.3 [degF] eCW1 ( [facility]) Respiratory rate 18 /min 18 /min eCW1 ([facility]) Heart rate 109 /min 109 /min eCW1 ([facility]) Body mass index (BMI) [Ratio] 28.89 kg/m2 28.89 kg/m2 W1 ([facility]) Body height 66 [in_i] 66 [in_i] eCW1 ([facility]) Body weight 179 [lb_av] 179 [lb_av] [facility] Respiratory rate 16 /min 16 /min [facility] Body temperature 36.28 Homer 36.28 Homer [facility] Heart rate 90 /min 90 /min [facility] Diastolic blood pressure 52 mm[Hg] 52 mm[Hg] [facility] Systolic blood pressure 102 mm[Hg] 102 mm[Hg] M [facility] Body mass index (BMI) [Ratio] 26.34 kg/m2 26.34 kg/m2 [facility] Body weight 76.114 kg 76.114 kg [facility] Oxygen saturation in Arterial blood by Pulse oximetry 100 % 100 % [facility] Body height 170 cm 170 cm [facility] Diastolic blood pressure 60 mm[Hg] 60 mm[Hg] eCW1 ([facility]) Systolic blood pressure 100 mm[Hg] 100 mm[Hg] e CW1 ([facility]) Body temperature 97 [degF] 97 [degF] eCW1 ([facility]) Respiratory rate 18 /min 18 /min eCW1 ([facility]) Heart rate 110 /min 110 /min eCW1 ([facility]) Body mass index (BMI) [Ratio] 27.44 kg/m2 27.44 kg/m2 eCW1 ([facility]) Body height 66 [in_i] 66 [in_i] eCW1 ([facility]) Body weight 170 [lb_av] 170 [lb_av] eCW[facility] Body weight 156.2 [lb_av] 156.2 [lb_av] ROBERTO ([facility] ) Systolic blood pressure 110 mm[Hg] 110 mm[Hg] A THENA ([facility] ) Body mass index (BMI) [Ratio] 26 kg/m2 26 kg/ m2 ROBERTO ([facility] ) Body height 65 [in_i] 65 [in_i] ROBERTO ([facility] ) Diastolic blood pressure 70 mm[Hg] 70 mm[Hg] ROBERTO ([facility] ) Diastolic blood pressure 60 mm[Hg] 60 mm[Hg] eCW1 ([facility]) Systolic blood pressure 100 mm[Hg] 100 mm[Hg] e CW1 ([facility]) Body temperature 97.6 [degF] 97.6 [degF] eCW1 ( [facility]) Respiratory rate 18 /min 18 /min eCW1 ([facility]) Heart rate 79 /min 79 /min eCW1 ([facility]) Body mass index (BMI) [Ratio] 25.01 kg/m2 25.01 kg/m2 eCW1 ([facility]) Body height 66 [in_i] 66 [in_i] eCW1 ([facility]) Body weight 155 [lb_av] 155 [lb_av] eCW[facility] Diastolic blood pressure 62 mm[Hg] 62 mm[Hg] eCW1 ([facility]) Systolic blood pressure 98 mm[Hg] 98 mm[Hg] e CW1 ([facility]) Body temperature 96.6 [degF] 96.6 [degF] eCW1 ( [facility]) Respiratory rate 18 /min 18 /min eCW1 ([facility]) Heart rate 101 /min 101 /min eCW1 ([facility]) Body mass index (BMI) [Ratio] 24.69 kg/m2 24.69 kg/m2 eCW1 ([facility]) Body height 66 [in_us] 66 [in_us] eCW1 ([facility]) Body weight Measured 153 [lb_av] 153 [lb_av] eC W1 ([facility]) Diastolic blood pressure 60 mm[Hg] 60 mm[Hg] eCW1 ([facility]) Systolic blood pressure 100 mm[Hg] 100 mm[Hg] e CW1 ([facility]) Body temperature 97 [degF] 97 [degF] eCW1 ([facility]) Respiratory rate 18 /min 18 /min eCW1 ([facility]) Heart rate 130 /min 130 /min eCW1 ([facility]) Body mass index (BMI) [Ratio] 24.53 kg/m2 24.53 kg/m2 eCW1 ([facility]) Body height 66 [in_us] 66 [in_us] eCW1 ([facility]) Body weight Measured 152 [lb_av] 152 [lb_av] eC W1 ([facility]) Diastolic blood pressure 62 mm[Hg] 62 mm[Hg] eCW1 ([facility]) Systolic blood pressure 94 mm[Hg] 94 mm[Hg] e CW1 ([facility]) Body temperature 96.9 [degF] 96.9 [degF] eCW1 ( [facility]) Respiratory rate 16 /min 16 /min eCW1 ([facility]) Heart rate 139 /min 139 /min eCW1 ([facility]) Body mass index (BMI) [Ratio] 24.53 kg/m2 24.53 kg/m2 eCW1 ([facility]) Body height 66 [in_us] 66 [in_us] eCW1 ([facility]) Body weight Measured 152 [lb_av] 152 [lb_av] eC W1 ([facility]) Diastolic blood pressure 58 mm[Hg] 58 mm[Hg] eCW1 ([facility]) Systolic blood pressure 100 mm[Hg] 100 mm[Hg] e CW1 ([facility]) Body temperature 96 [degF] 96 [degF] eCW1 ([facility]) Respiratory rate 18 /min 18 /min eCW1 ([facility]) Heart rate 115 /min 115 /min eCW1 ([facility]) Body mass index (BMI) [Ratio] 25.01 kg/m2 25.01 kg/m2 eCW1 ([facility]) Body height 66 [in_us] 66 [in_us] eCW1 ([facility]) Body weight Measured 155 [lb_av] 155 [lb_av] eC W1 ([facility]) Diastolic blood pressure 62 mm[Hg] 62 mm[Hg] eCW1 ([facility]) Systolic blood pressure 102 mm[Hg] 102 mm[Hg] e CW1 ([facility]) Body temperature 96.8 [degF] 96.8 [degF] eCW1 ( [facility]) Respiratory rate 18 /min 18 /min eCW1 ([facility]) Heart rate 85 /min 85 /min eCW1 ([facility]) Body mass index (BMI) [Ratio] 24.21 kg/m2 24.21 kg/m2 eCW1 ([facility]) Body height 66 [in_us] 66 [in_us] eCW1 ([facility]) Body weight Measured 150 [lb_av] 150 [lb_av] eC W1 ([facility]) Diastolic blood pressure 60 mm[Hg] 60 mm[Hg] eCW1 ([facility]) Systolic blood pressure 100 mm[Hg] 100 mm[Hg] e CW1 ([facility]) Body temperature 98.2 [degF] 98.2 [degF] eCW1 ( [facility]) Respiratory rate 18 /min 18 /min eCW1 ([facility]) Heart rate 120 /min 120 /min eCW1 ([facility]) Body mass index (BMI) [Ratio] 25.66 kg/m2 25.66 kg/m2 eCW1 ([facility]) Body height 66 [in_us] 66 [in_us] eCW1 ([facility]) Body weight Measured 159 [lb_av] 159 [lb_av] eC W1 ([facility]) ID Date Data Source [id number] 10/17/2020 05:21:16 PM [facility] Value Range Interpretation Code Description Data Source(s) TRANSFER FROM Replaced by [facility] ID Date Data Source [id number] [facility] Interpretation Code Description Data Source(s) TRANSFER FROM Replaced by [facility] ID Date Data Source [id number] 02/16/2020 09:21:[address] [facility] Value Range Interpretation Code Description Data Source(s) WEIGHT RECORDED 150 lb 150 lb [facility] Body height Measured 67 in in [facility] ID Date Data Source [id number] 11/17/2019 08:43:45 AM [facility] Value Range Interpretation Code Description Data Source(s) WEIGHT RECORDED 151.4 lb 151.4 lb [facility] Body height Measured 67 in 67 in [facility] ID Date Data Source [id number] 10/06/2019 04:22:21 PM [facility] Name Value Range Interpretation Code Description Data Source(s) WEIGHT RECORDED 146.8 lb 146.8 lb [facility] Body height Measured 67 in 67 in [facility] ID Date Data Source [id number] 10/06/2019 01:22:42 PM [facility] Name Value Range Interpretation Code Description Data Source(s) WEIGHT RECORDED 146.8 lb 146.8 lb [facility] Body height Measured 67 in 67 in [facility] ID Date Data Source [id number] 10/19/2019 09:52:26 AM [facility] Name Value Range Interpretation Code Description Data Source(s) WEIGHT RECORDED 154.54 lb 154.54 lb [facility] Body height Measured 67 in 67 in [facility] ID Date Data Source [id number] 09/22/2019 07:59:36 AM EST [facility] Name Value Range Interpretation Code Description Data Source(s) WEIGHT RECORDED 158 lb 158 lb [facility] Body height Measured 67 in 67 in [facility] ID Date Data Source [id number] 09/28/2019 02:47:42 PM EST [facility] Name Value Range Interpretation Code Description Data Source(s) WEIGHT RECORDED 158.6 lb 158.6 lb [facility] Body height Measured 67 in in [facility] Patient Treatment Plan of Care Planned Activity Planned Date Details Description Data Source (s) Fluoxetine 4 MG/ML Oral Solution 08/25/2020 12:00:00 AM EST eCW1 ([facility]) Zolpidem tartrate 10 MG Oral Tablet 08/25/2020 12:00:00 AM EST eCW1 ([facility]) Fluoxetine 4 MG/ML Oral Solution 08/25/2020 12:00:00 AM EST eCW1 ([facility]) Zolpidem tartrate 10 MG Oral Tablet 08/25/2020 12:00:00 AM EST eCW1 ([facility]) Fluoxetine 4 MG/ML Oral Solution 08/25/2020 12:00:00 AM EST eCW1 ([facility]) Zolpidem tartrate 10 MG Oral Tablet 08/25/2020 12:00:00 AM EST eCW1 ([facility]) Fluoxetine 4 MG/ML Oral Solution 08/25/2020 12:00:00 AM EST eCW1 ([facility]) Zolpidem tartrate 10 MG Oral Tablet 08/25/2020 12:00:00 AM EST eCW1 ([facility]) Fluoxetine 4 MG/ML Oral Solution 08/25/2020 12:00:00 AM EST eCW1 ([facility]) Zolpidem tartrate 10 MG Oral Tablet 08/25/2020 12:00:00 AM EST eCW1 ([facility]) Levetiracetam 500 MG Oral Tablet 08/04/2020 12:00:00 AM EDT [facility] Zolpidem tartrate 5 MG Oral Tablet 04/21/2020 12:00:00 AM EDT eCW1 ([facility]) Zolpidem tartrate 5 MG Oral Tablet 04/21/2020 12:00:00 AM EDT eCW1 ([facility]) Zolpidem tartrate 5 MG Oral Tablet 04/21/2020 12:00:00 AM EDT eCW1 ([facility]) Amylases 25816 UNT / Endopeptidases 9500 UNT / Lipase 3000 UNT Delayed Release Oral Capsule 04/07/2020 12:00:00 AM EDT [facility] Zolpidem tartrate 10 MG Oral Tablet 03/28/2020 12:00:00 AM EDT eCW1 ([facility]) Zolpidem tartrate 10 MG Oral Tablet 03/28/2020 12:00:00 AM EDT eCW1 ([facility]) Zolpidem tartrate 10 MG Oral Tablet 03/28/2020 12:00:00 AM EDT eCW1 ([facility]) Zolpidem tartrate 10 MG Oral Tablet 03/28/2020 12:00:00 AM EDT eCW1 ([facility]) Misc. Devices (DURABLE MEDICAL EQUIPMENT SEE SIG) XX M ISC 03/28/2020 12:00:00 AM EDT [facility] 1 ML Enoxaparin sodium 100 MG/ML Prefilled Syringe [Lo venox] 03/24/2020 12:00:00 AM EDT eCW1 ([facility]) 1 ML Enoxaparin sodium 100 MG/ML Prefilled Syringe [Lo venox] 03/24/2020 12:00:00 AM EDT eCW1 ([facility]) 1 ML Enoxaparin sodium 100 MG/ML Prefilled Syringe [Lo venox] 03/24/2020 12:00:00 AM EDT eCW1 ([facility]) 1 ML Enoxaparin sodium 100 MG/ML Prefilled Syringe [Lo venox] 03/24/2020 12:00:00 AM EDT eCW1 ([facility]) 1 ML Enoxaparin sodium 100 MG/ML Prefilled Syringe [Lo venox] 03/24/2020 12:00:00 AM EDT eCW1 ([facility]) Amylases 17159 UNT / Endopeptidases 9500 UNT / Lipase 3000 UNT Delayed Release Oral Capsule [Creon] 03/24/2020 12:00:00 AM EDT eCW1 ([facility]) Amylases 80154 UNT / Endopeptidases 9500 UNT / Lipase 3000 UNT Delayed Release Oral Capsule [Creon] 03/24/2020 12:00:00 AM EDT eCW1 ([facility]) Amylases 24390 UNT / Endopeptidases 9500 UNT / Lipase 3000 UNT Delayed Release Oral Capsule [Creon] 03/24/2020 12:00:00 AM EDT eCW1 ([facility]) Amylases 38862 UNT / Endopeptidases 9500 UNT / Lipase 3000 UNT Delayed Release Oral Capsule [Creon] 03/24/2020 12:00:00 AM EDT eCW1 ([facility]) Relizorb Device 03/22/2020 12:00:00 AM [facility]. Devices (DURABLE MEDICAL EQUIPMENT SEE SIG) XX M [facility] 03/15/2020 12:00:00 AM [facility] (DURABLE MEDICAL EQUIPMENT SEE SIG) XX M [facility] 03/15/2020 12:00:00 [facility] (DURABLE MEDICAL EQUIPMENT SEE SIG) XX M [facility] 03/02/2020 12:00:00 AM [facility] Devices (DURABLE MEDICAL EQUIPMENT SEE SIG) XX M [facility] 02/17/2020 12:00:00 AM [facility] Devices (DURABLE MEDICAL EQUIPMENT SEE SIG) XX M [facility] 02/10/2020 12:00:00 AM [facility] Zolpidem tartrate 5 MG Oral Tablet 02/04/2020 12:00:00 AM EDT eC ([facility]) Zolpidem tartrate 5 MG Oral Tablet 02/04/2020 12:00:00 AM EDT eCW1 ([facility]) Methadone Hydrochloride 5 MG Oral Tablet 01/28/2020 12:00:00 AM [facility] 0.8 ML Enoxaparin sodium 100 MG/ML Prefilled Syringe 020 12:00:00 AM [facility] 0.8 ML Enoxaparin sodium 100 MG/ML Prefilled Syringe [ Lovenox] 01/07/2020 12:00:00 AM EDT eCW1 ([facility]) Sodium Chloride 0.9 % Intravenous Solution 01/05/2020 12:00:00 AM E [facility] Invanz 1 GM 01/05/2020 12:00:00 AM EDT e CW1 ([facility]) Nystatin 843814 UNT/ML Topical Cream 01/04/2020 12:00:00 AM EDT eCW1 ([facility]) Nystatin 036259 UNT/ML Topical Cream 01/04/2020 12:00:00 AM EDT eCW1 ([facility]) Nystatin 316985 UNT/ML Topical Cream 01/04/2020 12:00:00 AM [facility] Meropenem 1 GM 01/04/2020 12:00:00 AM EDT eCW1 ([facility]) Nystatin 395527 UNT/ML Topical Cream 01/04/2020 12:00:00 AM EDT eCW1 ([facility]) Nystatin 179244 UNT/ML Topical Cream 01/04/2020 12:00:00 AM EDT eCW1 ([facility]) Zolpidem tartrate 6.25 MG Extended Release Oral Tablet 11/24/2019 12:00:00 AM EST eCW1 ([facility]) Zolpidem tartrate 6.25 MG Extended Release Oral Tablet 11/24/2019 12:00:00 AM EST eCW1 ([facility]) Zolpidem tartrate 6.25 MG Extended Release Oral Tablet 11/24/2019 12:00:00 AM EST eCW1 ([facility]) Zolpidem tartrate 6.25 MG Extended Release Oral Tablet 11/24/2019 12:00:00 AM EST eCW1 ([facility]) Zolpidem tartrate 6.25 MG Extended Release Oral Tablet 11/24/2019 12:00:00 AM EST eCW1 ([facility]) Glucagon 3 MG/DOSE 11/24/2019 12:00:00 AM EST eCW1 ([facility]) diphenhydrAMINE HCl 50 MG/ML Injection Solution (BENAD RYL) 11/13/2019 12:00:00 AM [facility] ospital Misc. Devices (DURABLE MEDICAL EQUIPMENT SEE SIG) XX M ISC 11/10/2019 12:00:00 AM [facility]ital 1 ML heparin sodium, porcine 100 UNT/ML Injection 11/02/2019 12: 39:15 PM [facility] sodium chloride (preservative free) 0.9 % flush 10 mL 11/02/2019 08:45:14 AM [facility]spital 1 ML heparin sodium, porcine 10 UNT/ML Injection 11/02/2019 08:45:1 4 AM [facility] Dicyclomine Hydrochloride 10 MG Oral Capsule 11/02/2019 12:00:00 AM [facility] pantoprazole 4 MG/ML Injectable Solution 11/02/2019 12:00:00 AM [facility] Ondansetron 2 MG/ML Injectable Solution 11/02/2019 12:00:00 AM [facility] alpha-Tocopherol Acetate 1 UNT/ML / Asco rbic Acid 20 MG/ML / Biotin 0.006 MG/ML / Cholecalciferol 20 UNT/ML / dexpanthenol 1.5 MG/ML / Folic Acid 0.06 MG/ML / Niacinamide 4 MG/ML / Pyridoxine Hydrochloride 0.6 MG/ML / retinyl palmitate 330 UNT/ML / Ribofl 11/02/2019 12:00:00 AM [facility] sodium chloride 0.9 % SOLN 50 mL with ertapenem 1 g SO LR 1,000 mg 11/02/2019 12:00:00 AM [facility]spital Loperamide Hydrochloride 2 MG Oral Capsule 11/02/2019 12:00:00 AM E [facility] pantoprazole 40 MG Delayed Release Oral Tablet 11/02/2019 12:00:00 AM [facility] Loperamide Hydrochloride 2 MG Oral Capsule 10/27/2019 08:41:30 PM E [facility] Hydroxyzine Hydrochloride 50 MG Oral Tablet 10/27/2019 08:41:24 PM [facility] albuterol (PROVENTIL HFA;VENTOLIN HFA) inhaler 2 puff 10/27/2019 08:40:44 PM [facility]ital Doxycycline Monohydrate 5 MG/ML Oral Suspension 10/16/2019 12:00:00 AM [facility] eCW1 ([facility]) Calcium Chloride 0.0014 MEQ/ML / Potassi um Chloride 0.004 MEQ/ML / Sodium Chloride 0.103 MEQ/ML / Sodium Lactate 0.028 MEQ/ML Injectable Solution 10/05/2019 04:15:00 PM [facility] 1 ML heparin sodium, porcine 10 UNT/ML Injection 10/05/2019 04:11:5 1 PM [facility] Calcium Chloride 0.0014 MEQ/ML / Potassi um Chloride 0.004 MEQ/ML / Sodium Chloride 0.103 MEQ/ML / Sodium Lactate 0.028 MEQ/ML Injectable Solution 10/05/2019 02:45:00 PM [facility] Promethazine Hydrochloride 25 MG/ML Injectable Solutio n 10/05/2019 02:30:00 PM [facility] ospital pantoprazole 4 MG/ML Injectable Solution 10/05/2019 02:30:00 PM [facility] ondansetron (ZOFRAN) injection 4 mg 10/05/2019 02:30:00 PM [facility] lactated ringers bolus 2,000 mL 10/05/2019 02:30:00 PM [facility] Amylases 88802 UNT / Endopeptidases 9500 UNT / Lipase 3000 UNT Delayed Release Oral Capsule 10/05/2019 12:00:00 AM [facility] Amylases 93336 UNT / Endopeptidases 9500 UNT / Lipase 3000 UNT Delayed Release Oral Capsule 10/05/2019 12:00:00 AM [facility] Atropine Sulfate 0.025 MG / Diphenoxylate Hydrochlorid e 2.5 MG Oral Tablet 10/05/2019 12:00:00 AM [facility] Ondansetron 4 MG Disintegrating Oral Tablet 10/02/2019 12:00:00 AM [facility] Loperamide Hydrochloride 2 MG Oral Capsule 10/01/2019 12:00:00 AM E [facility] pantoprazole 40 MG Delayed Release Oral Tablet 10/01/2019 12:00:00 AM [facility] Misoprostol 0.2 MG Oral Tablet 10/01/2019 12:00:00 AM [facility] Oxycodone Hydrochloride 5 MG Oral Tablet 09/30/2019 06:48:27 PM [facility] tramadol hydrochloride 50 MG Oral Tablet 09/29/2019 09:43:51 AM [facility] trimethobenzamide (TIGAN) injection 200 mg 09/28/2019 09:54:05 AM E [facility] Promethazine Hydrochloride 25 MG/ML Injectable Solutio n 09/28/2019 09:53:48 AM [facility] ospital albuterol (PROVENTIL HFA;VENTOLIN HFA) inhaler 2 puff 09/27/2019 06:30:14 PM [facility] ospital Misc. Devices (DURABLE MEDICAL EQUIPMENT SEE SIG) XX M ISC 09/21/2019 12:00:00 AM [facility]ital pantoprazole 40 MG Delayed Release Oral Tablet 09/21/2019 12:00:00 AM [facility] Oxycodone Hydrochloride 5 MG Oral Tablet 09/14/2019 12:00:00 AM EST eCW1 ([facility]) Oxycodone Hydrochloride 10 MG Oral Tablet 09/14/2019 12:00:00 AM ES T eCW1 ([facility]) POLYETHYLENE GLYCOL 3350 142 MG/ML Oral Solution 09/12/2019 12:00:0 0 AM [facility] Bariatric Fusion Oral Tablet Chewable 09/11/2019 12:00:00 AM [facility] gabapentin 100 MG Oral Capsule 09/11/2019 12:00:00 AM [facility] sennosides, [facility] 8.6 MG Oral Tablet 09/11/2019 12:00:00 AM [facility] Docusate Sodium 100 MG Oral Capsule 09/11/2019 12:00:00 AM [facility] Oxycodone Hydrochloride 5 MG Oral Tablet 09/11/2019 12:00:00 AM [facility] Hydroxyzine Hydrochloride 50 MG Oral Tablet 09/08/2019 02:29:40 PM [facility] albuterol (PROVENTIL HFA;VENTOLIN HFA) inhaler 2 puff 09/08/2019 02:29:13 PM [facility] ospital oxyCODONE (ROXICODONE) immediate release tablet 5 mg 019 07:15:51 AM [facility] Bisacodyl 10 MG Rectal Suppository 09/05/2019 11:43:27 AM [facility] POLYETHYLENE GLYCOL 3350 142 MG/ML Oral Solution 09/04/2019 09:00:0 0 AM [facility] Ondansetron 8 MG Disintegrating Oral Tablet 07/03/2019 12:00:00 AM [facility] Zolpidem tartrate 6.25 MG Extended Release Oral Tablet 07/02/2019 12:00:00 AM [facility] ospital Promethazine Hydrochloride 25 MG Rectal Suppository [P kuldeep] 07/02/2019 12:00:00 AM [facility] ospital sodium chloride, preservative free, 0.9 % injection 05/15/20 12:00:00 AM [facility] Sodium Chloride Flush (NORMAL SALINE FLUSH) 0.9 % SOLN 05/15/2019 12:00:00 AM [facility] ospital 1 ML heparin sodium, porcine 100 UNT/ML Injection 05/15/2019 12: 00:00 AM [facility] sodium chloride 0.9 % solution 04/30/2019 12:00:00 AM [facility] Glucagon 1 MG Injection 11/14/2018 12:00:00 AM [facility] pantoprazole 40 MG Delayed Release Oral Tablet 10/10/2018 12:00:00 AM [facility] Ondansetron 2 MG/ML Injectable Solution 04/16/2018 12:00:00 AM [facility] Zolpidem tartrate 6.25 MG Extended Release Oral Tablet ROBERTO ([facility]) Zolpidem tartrate 12.5 MG Extended Release Oral Tablet [facility] ([facility]) Zolpidem tartrate 5 MG Oral Tablet [facility]ERTO ([facility]) 1 ML heparin sodium, porcine 10 UNT/ML Injection [facility] HEPARIN LOCK FLUSH IV [facility] 0.6 ML Enoxaparin sodium 100 MG/ML Prefilled Syringe [facility] TPN ADULT (ION-BASED) [facility] sodium chloride 0.9 % intravenous solution ROBERTO ([facility]) sodium chloride 0.9 % intravenous piggyback [facility]ERTO ([facility]) Promethazine Hydrochloride 25 MG Rectal Suppository [Promethegan] [facility]ERTO ([facility]) Prednisone 20 MG Oral Tablet [facility] ([facility]) pantoprazole 40 MG Delayed Release Oral Tablet [facility] ([facility]) Oxycodone Hydrochloride 1 MG/ML Oral Solution [facility] ([facility]) Oxycodone Hydrochloride 5 MG Oral Tablet [facility] ([facility]) Oxycodone Hydrochloride 20 MG/ML Oral Solution [facility] ([facility]) Ondansetron 8 MG Disintegrating Oral Tablet [facility] ([facility]) Nystatin 521059 UNT/ML Topical Cream [facility] ([facility]) Morphine Sulfate 15 MG Oral Tablet [facility] ([facility]) Misoprostol 0.2 MG Oral Tablet [facility] ([facility]) Metronidazole 5 MG/ML Injectable Solution [facility] ([facility]) Metoclopramide 10 MG Oral Tablet [facility] ([facility]) linezolid 600 MG Oral Tablet [facility] ([facility]) 3 ML heparin sodium, porcine 100 UNT/ML Prefilled Syringe [facility] ([facility]) gabapentin 100 MG Oral Capsule [facility] ([facility]) Fluoxetine 4 MG/ML Oral Solution [facility] ([facility]) ertapenem 1 gram solution for injection [facility] ([facility]) 0.6 ML Enoxaparin sodium 100 MG/ML Prefilled Syringe [facility] ([facility]) Doxycycline Monohydrate 5 MG/ML Oral Suspension [facility] ([facility]) Ceftriaxone 2000 MG Injection [facility] ([facility]) Ceftriaxone 100 MG/ML Injectable Solution [facility]ERT[facility] ([facility]) benzonatate 100 MG Oral Capsule [facility]ERT[facility] ([facility]) Amoxicillin 500 MG Oral Capsule [facility]ERTO ([facility])
--- NOTE | 2020-11-07 21:19 | REPVR ---
PROCEDURE INFORMATION: Exam: XR Chest, 1 View Exam date and time: 11/07/2020 8:48 PM Age: 40 years old Clinical indication: Other vascular access device placement or adjustment; Other: Galicia; Additional info: Galicia port not flushing TECHNIQUE: Imaging protocol: XR of the chest Views: 1 view. COMPARISON: CR CHEST 2 VIEW 10/09/2020 1:51 PM FINDINGS: Tubes, catheters and devices: A right internal jugular double-lumen central line is again noted. Lungs: The lungs are unchanged. Pleural space: Unremarkable. No pleural effusion. No pneumothorax. Heart/Mediastinum: The heart and mediastinum are unchanged. Bones/joints: Unremarkable. Intraperitoneal space: Surgical clips are again noted across the upper abdomen. IMPRESSION: Stable chest since 10/09/2020. No acute interval process is identified. Electronically signed by: Bay Schmidt On 11/07/2020 21:18:53 PM
[2020-11-07 22:04] VITALS: BP 130/67
== END 2020-11-07 22:05 | disposition home or self-care (01) ==
LOC: M ED 18:04
DX: T82.9XXA Unspecified complication of cardiac and vascular prosthetic device, implant and graft, initial encounter (principal); Z88.1 Allergy status to other antibiotic agents; Z88.2 Allergy status to sulfonamides; Z88.6 Allergy status to analgesic agent; Z88.8 Allergy status to other drugs, medicaments and biological substances; Z91.018 Allergy to other foods; Z93.1 Gastrostomy status; Z98.84 Bariatric surgery status; Z79.01 Long term (current) use of anticoagulants; Z79.891 Long term (current) use of opiate analgesic; Z79.51 Long term (current) use of inhaled steroids; Z79.899 Other long term (current) drug therapy

== ENCOUNTER → 2020-11-08 | Outpatient (POV) | payer BC, OTHER ==
--- NOTE | 2020-11-10 13:53 | IRPN ---
[facility] IR Progress Note IR Progress Note DATE: Nov 08, 2020 Patient agreed to this telephone follow-up. Video conference available. I spent 15 minutes reviewing patient's records and talking to the patient. FOLLOW-UP: Patient with extensive history of abdominal surgeries, gastroparesis and malnourishment, complaining of right Galicia catheter problems. Patient has a G-tube for gastric decompression. She also has a J-tube for jejunal feeds which was placed in August 2020. However, she does not use the J-tube for nutrition only medication. She states with nutrition through the J-tube she has bloating and indigestion. She's been on TPN for 3 years. She reports having multiple Galicia catheters over the last 4 years, each one last 6 months before it has to be removed for infection and/or malfunction. She's had prior p seudomonas infections in the blood with a port. She states when she flushes the current Galicia catheter which was placed in February 2020, the tunnel swells up. Video conference: The patient flushed the catheter in front of me. With i njection, the tunnel appeared to swell. She failed to aspirate blood. Impression: Right Galicia catheter placed in February 2020. Now with dysfunction likely related to fibrin sheath and retraction of the catheter. We will schedule the patient for a new Galicia catheter placement under anesthesia. Thank you for this referral. Cc Dr. Wyatt. Allergies Coded Allergies: Sulfa (Sulfonamide Antibiotics) (Verified Allergy, Severe, RESP. PROBLEMS, SWELLING, HIVES, 06/28/20) butorphanol (Verified Allergy, Severe, HIVES/RESP. PROBLEMS (PERCOCET AND TYL#3 OK), 06/28/20) HAS HAD MORPHINE AND DILAUDID IN THE PAST levofloxacin (Verified Allergy, Severe, THROAT SWELLING/HIVES, 06/28/20) tomato (Verified Allergy, Severe, RESP. PROBLEMS, HIVES, 06/28/20) tramadol (Verified Allergy, Severe, SOB - HAS HAD MORPHINE AND DILAUDID IN THE PAST, 06/28/20) scopolamine (Verified Adverse Reaction, Intermediate, VISION LOSS, 06/28/20) NSAIDS (Non-Steroidal Anti-Inflamma (Verified Adverse Reaction, Mild, GASTRIC BYPASS, 06/28/20) KARSTEN QUACH MD Nov 10, 2020 13:53
== END ==
LOC: M TMIRPOV 09:50
PROVIDERS: ATTEND Radiology Diagnostic Radiology
DX: T82.518A Breakdown (mechanical) of other cardiac and vascular devices and implants, initial encounter (principal); X58.XXXA Exposure to other specified factors, initial encounter

== ENCOUNTER 2020-11-10 11:55 | Outpatient (CLI) | payer BC, OTHER ==
[2020-11-10] MEDS ORDERED: LIDOCAINE 1% MDV 20ML VIAL As Ordered ONE (14:01)
[2020-11-10] MEDS ORDERED: ceFAZolin 1GM VIAL (J0690 PER 500MG) As Ordered ONE (14:02)
[2020-11-10] MEDS ORDERED: fentaNYL 100 MCG/2 ML INJECTION (J3010) As Ordered ONE (15:07)
[2020-11-10] MEDS ORDERED: ONDANSETRON 4MG/2ML VIAL As Ordered ONE (15:07)
[2020-11-10] MEDS ORDERED: propofoL 200 MG/20 ML VIAL As Ordered ONE (15:07)
[2020-11-10] MEDS ORDERED: MIDAZOLAM INJ 2MG/2ML VIAL (J2250 PER 1MG) As Ordered ONE (15:07)
[2020-11-10] MEDS ORDERED: dexameTHASONE 4 MG/ML 1ML VIAL (J1100 PER 1MG) As Ordered ONE (15:07)
[2020-11-10] MEDS ORDERED: METOCLOPRAMIDE INJ 10MG/2ML VIAL (J2765 PER 1) As Ordered ONE (15:07)
[2020-11-10] MEDS ORDERED: ONDANSETRON 4MG/2ML VIAL IV PRN (15:30)
[2020-11-10] MEDS ORDERED: LR 1,000 ML IV SCH (15:30)
[2020-11-10] MEDS ORDERED: oxyCODONE 5MG TAB PO PRN (15:30)
[2020-11-10] MEDS ORDERED: fentaNYL 100 MCG/2 ML INJECTION (J3010) IV PRN (15:30)
[2020-11-10] MEDS ORDERED: diphenhydrAMINE 50MG/ML VIAL (J1200) As Ordered ONE (15:33)
[2020-11-10] MEDS ORDERED: diphenhydrAMINE 50MG/ML VIAL (J1200) IV PRN (15:45)
[2020-11-10 15:55] VITALS: BP 107/63
--- NOTE | 2020-11-14 12:55 | POST-OPPD ---
Postoperative Procedure Note Date Of Procedure: Nov 10, 2020 Time Of Procedure: 16:00 IR Galicia. IR Galicia catheter insertion under fluoroscopic and ultrasound guidance. IR Ultrasound of the left neck. IR Right sided Galicia removal. Clinical Information: Malnourished. TPN dependant. Right sided Galicia placed in February 2020, now dysfunctional. Physician: Dr. Quach. Procedure: The patient was advised of the benefits, risks, and alternatives of the procedure and informed consent was obtained. A time out was performed with verification of the patient's name, MRN, site of procedure, and type of procedure to be performed. The patient was positioned in the supine position on the angiographic table. The site was prepped and draped in the usual sterile fashion. Anesthesia was performed by the anesthesia team. The physician spent 60 minutes face to face time with the patient. Ultrasound of the neck reveals a patent and compressible left internal jugular vein. A executive coordinator radiograph reveals right sided Galicia retracted to brachiocephalic junction. Left Galicia placement: The neck and anterior chest wall were anesthetized with lidocaine. The left internal jugular vein was accessed under ultrasound guidance, using a microintroducer needle via a lateral approach. A 0.018 cope wire was advanced into the superior vena cava under fluoroscopic guidance, the needle was removed and a microintroducer sheath was placed. An Amplatz wire was then passed into the inferior vena cava, under fluoroscopic guidance. Incisions at the internal jugular access site and anterior chest wall were made using a scalpel. A dual lumen Galicia catheter was inserted through subcutaneous tissues of the chest wall with a tunneling device. The microintroducer sheath was removed and a peel-away sheath was placed over the wire and into the superior vena cava. The wire and insert were removed. The catheter was passed into the internal jugular vein via the sheath. The peel away sheath was then removed. The catheter tip was positioned at the cavoatrial junction. The puncture site was closed. The catheter was secured in place using a 2-0 Prolene. Both sites were cleansed and sterile dressings were applied. At the conclusion of the procedure, the ports of the catheter aspirated and flushed freely. Right Galicia removal: The right sided Galicia catheter and skin were prepped in a sterile manner. Lidocaine was used for local anesthesia. The catheter cuff was then dissected out using blunt dissection. The catheter was removed in it's entirety. Follow up executive coordinator radiograph was obtained which demonstrates successful right Galicia removal. A sterile dressing was applied to the site. The patient tolerated the procedure well and was returned to the PRU in stable condition. EBL: < 5 mL. Complications: None. Conclusion: 1. Successful placement of a left sided Galicia catheter. The catheter is ready for immediate use. 2. Successful removal of a dysfunctional right sided Galicia catheter. Thank you for this referral. cc Dr. Luis Wyatt. KARSTEN QUACH MD Nov 14, 2020 12:55
== END 2020-11-10 16:00 ==
LOC: M IRPRO 11:55
PROVIDERS: ATTEND Radiology Diagnostic Radiology
DX: T82.518A Breakdown (mechanical) of other cardiac and vascular devices and implants, initial encounter (principal); E46 Unspecified protein-calorie malnutrition; B37.2 Candidiasis of skin and nail; D64.9 Anemia, unspecified; D68.59 Other primary thrombophilia; G43.909 Migraine, unspecified, not intractable, without status migrainosus; J45.909 Unspecified asthma, uncomplicated; R00.0 Tachycardia, unspecified; X58.XXXA Exposure to other specified factors, initial encounter; Z79.899 Other long term (current) drug therapy; Z88.2 Allergy status to sulfonamides; Z88.6 Allergy status to analgesic agent; Z88.8 Allergy status to other drugs, medicaments and biological substances; Z86.711 Personal history of pulmonary embolism; Z93.4 Other artificial openings of gastrointestinal tract status; Z98.84 Bariatric surgery status
CPT/HCPCS: 36558; 36589; C1750; C1769; C1894; J0690; J1100; J1200; J1642; J1644; J2250; J2405; J2765; J3010; U0002

== ENCOUNTER → 2020-11-19 | Outpatient (REF) | payer BC, OTHER ==
[~2020-11-19] MED LIST changes: -METH-1164; +METH1TAB40
[2020-11-19 17:08] LABS: HEMATOCRIT 34.6 % (36.0-47.0); HEMOGLOBIN 10.8 g/dl (12.0-15.5); MEAN CORPUSCULAR HEMOGLOBIN 27.5 pg (27.0-33.0); MEAN CORPUSCULAR HGB CONC 31.2 g/dl (32.0-36.5); PLATELET COUNT, AUTOMATED 291 10^3/uL (150-450); RED BLOOD COUNT 3.93 10^6/uL (4.00-5.40); WHITE BLOOD COUNT 6.3 10^3/uL (4.0-10.0)
[2020-11-19 17:28] LABS: ALBUMIN 3.5 GM/DL (3.2-5.2); ALT/SGPT 33 U/L (12-78); BILIRUBIN,TOTAL 0.4 MG/DL (0.2-1.0); BLOOD UREA NITROGEN 6 MG/DL (7-18); CALCIUM LEVEL 8.7 MG/DL (8.5-10.1); CARBON DIOXIDE LEVEL 30 MEQ/L (21-32); CHLORIDE LEVEL 102 MEQ/L (98-107); CREATININE FOR GFR 0.67 MG/DL (0.55-1.30); GLOMERULAR FILTRATION RATE > 60.0 (>58); GLUCOSE, FASTING 111 MG/DL (70-100); POTASSIUM SERUM 3.9 MEQ/L (3.5-5.1); SODIUM LEVEL 141 MEQ/L (136-145); TOTAL PROTEIN 6.3 GM/DL (6.4-8.2)
== END ==
LOC: M LAB REF 16:20
PROVIDERS: ATTEND Family Medicine
DX: Z01.818 Encounter for other preprocedural examination (principal)

== ENCOUNTER → 2020-11-19 | Outpatient (REF) | payer BC, OTHER ==
[2020-11-19 17:28] LABS: ALBUMIN 3.5 GM/DL (3.2-5.2); ALT/SGPT 32 U/L (12-78); BILIRUBIN,TOTAL 0.3 MG/DL (0.2-1.0); BLOOD UREA NITROGEN 5 MG/DL (7-18); CALCIUM LEVEL 8.8 MG/DL (8.5-10.1); CARBON DIOXIDE LEVEL 30 MEQ/L (21-32); CHLORIDE LEVEL 101 MEQ/L (98-107); CHOLESTEROL LEVEL 247 MG/DL (<200); CHOLESTEROL RISK RATIO 6.024 (<5); GLOMERULAR FILTRATION RATE > 60.0 (>58); GLUCOSE, FASTING 112 MG/DL (70-100); HDL CHOLESTEROL 41 MG/DL (>40); LDL CHOLESTEROL 177 MG/DL (<100); MAGNESIUM LEVEL 2.3 MG/DL (1.8-2.4); NON-HDL-C 206 MG/DL; PHOSPHORUS LEVEL 3.9 MG/DL (2.5-4.9); POTASSIUM SERUM 3.9 MEQ/L (3.5-5.1); SODIUM LEVEL 140 MEQ/L (136-145); TOTAL PROTEIN 6.2 GM/DL (6.4-8.2); TRIGLYCERIDES LEVEL 145 MG/DL (<150)
== END ==
LOC: M LAB REF 16:20
PROVIDERS: ATTEND Internal Medicine Gastroenterology
DX: Z98.84 Bariatric surgery status (principal); K31.84 Gastroparesis

== ENCOUNTER → 2020-11-21 | Outpatient (REF) | payer OTHER ==
[~2020-11-21] MED LIST changes: +METH-1164; -METH1TAB40
[2020-11-21 18:10] LABS: BASO % 0.6 % (0.0-1.0); EOS # 0.3 10^3/uL (0.0-0.5); EOS % 5.8 % (0.0-3.0); HEMATOCRIT 35.7 % (36.0-47.0); LYMPH # 1.4 10^3/uL (1.5-5.0); LYMPH % 26.6 % (24.0-44.0); MEAN CORPUSCULAR HEMOGLOBIN 27.4 pg (27.0-33.0); MEAN CORPUSCULAR HGB CONC 30.8 g/dl (32.0-36.5); MEAN CORPUSCULAR VOLUME 88.8 fl (80.0-96.0); MONO # 0.6 10^3/uL (0.0-0.8); MONO % 11.7 % (0.0-5.0); NEUTROPHILS # 2.8 10^3/uL (1.5-8.5); NEUTROPHILS % 54.7 % (36.0-66.0); PLATELET COUNT, AUTOMATED 312 10^3/uL (150-450); RED BLOOD COUNT 4.02 10^6/uL (4.00-5.40); WHITE BLOOD COUNT 5.2 10^3/uL (4.0-10.0)
[2020-11-21 18:23] LABS: ALBUMIN 3.6 GM/DL (3.2-5.2); ALT/SGPT 41 U/L (12-78); BILIRUBIN,TOTAL 0.2 MG/DL (0.2-1.0); BLOOD UREA NITROGEN 4 MG/DL (7-18); CALCIUM LEVEL 9.2 MG/DL (8.5-10.1); CARBON DIOXIDE LEVEL 31 MEQ/L (21-32); CHLORIDE LEVEL 103 MEQ/L (98-107); CHOLESTEROL LEVEL 255 MG/DL (<200); CHOLESTEROL RISK RATIO 6.219 (<5); GLOMERULAR FILTRATION RATE > 60.0 (>58); GLUCOSE, FASTING 102 MG/DL (70-100); HDL CHOLESTEROL 41 MG/DL (>40); LDL CHOLESTEROL 164 MG/DL (<100); MAGNESIUM LEVEL 2.2 MG/DL (1.8-2.4); NON-HDL-C 214 MG/DL; PHOSPHORUS LEVEL 4.1 MG/DL (2.5-4.9); POTASSIUM SERUM 4.2 MEQ/L (3.5-5.1); SODIUM LEVEL 141 MEQ/L (136-145); TOTAL PROTEIN 6.3 GM/DL (6.4-8.2); TRIGLYCERIDES LEVEL 248 MG/DL (<150)
[2020-11-23 05:07] LABS: LDL DIRECT 163 mg/dL (0-99)
== END ==
LOC: M LAB REF 17:18
PROVIDERS: ATTEND Internal Medicine Gastroenterology
DX: K31.84 Gastroparesis (principal); K21.00 Gastro-esophageal reflux disease with esophagitis, without bleeding; Z98.84 Bariatric surgery status

== ENCOUNTER 2020-11-22 21:40 | Emergency (ER) | payer BC, OTHER ==
[~2020-11-22] VITALS: Ht 170.2 cm; Wt 82.3 kg
[~2020-11-22 21:40] MED LIST changes: -METH-1164; +METH1TAB40
[2020-11-22] MEDS ORDERED: ISOVUE-370 76% 100ML VIAL As Ordered ONE (21:57)
[2020-11-22 22:25] LABS: ABG HCO3 23.2 MEQ/L (22.0-26.0); ABG O2 SATURATION 99.8 % (95.0-99.0); ABG PARTIAL PRESSURE CO2 33.2 mmHg (35.0-45.0); ABG PARTIAL PRESSURE O2 230.5 mmHg (75.0-100.0); ABG STANDARD HCO3 24.6 MEQ/L (22.0-26.0); ABG TOTAL CO2 24.2 MEQ/L (22.0-29.0); ABG pH (ARTERIAL) 7.462 UNITS (7.350-7.450)
[2020-11-22 22:29] LABS: BASO % 0.4 % (0.0-1.0); EOS # 0.2 10^3/uL (0.0-0.5); EOS % 3.4 % (0.0-3.0); HEMATOCRIT 40.8 % (36.0-47.0); HEMOGLOBIN 12.6 g/dl (12.0-15.5); LYMPH # 1.6 10^3/uL (1.5-5.0); LYMPH % 30.5 % (24.0-44.0); MEAN CORPUSCULAR HEMOGLOBIN 27.1 pg (27.0-33.0); MEAN CORPUSCULAR HGB CONC 30.9 g/dl (32.0-36.5); MEAN CORPUSCULAR VOLUME 87.7 fl (80.0-96.0); MONO # 0.4 10^3/uL (0.0-0.8); MONO % 8.3 % (0.0-5.0); NEUTROPHILS % 56.6 % (36.0-66.0); PLATELET COUNT, AUTOMATED 348 10^3/uL (150-450); RED BLOOD COUNT 4.65 10^6/uL (4.00-5.40); WHITE BLOOD COUNT 5.3 10^3/uL (4.0-10.0)
[2020-11-22 22:39] LABS: INR 0.95; PROTHROMBIN TIME 12.9 SECONDS (12.5-14.3)
[2020-11-22 22:42] LABS: RSV AMPLIFICATION NEGATIVE (NEGATIVE)
--- NOTE | 2020-11-22 23:08 | REPVR ---
PROCEDURE INFORMATION: Exam: XR Chest, 1 View Exam date and time: 11/22/20 (10:37pm) Age: 40 years old Clinical indication: Cough and dyspnea TECHNIQUE: Imaging protocol: Portable CXR Views: 1 view COMPARISON: Frontal CXR of 11/07/20 FINDINGS: Lungs: Unremarkable. No consolidation. Pleural spaces: Unremarkable. No pleural effusions. No pneumothorax. Heart/Mediastinum: Unremarkable. No cardiomegaly. Bones/joints: Unremarkable. Other findings: A left-sided double-lumen central venous catheter is seen, with its tip at the approximate atrio-caval junction. IMPRESSION: No acute findings. The lung snell remain clear. Electronically signed by: Doreen Walton On 11/22/2020 23:07:49 PM
--- NOTE | 2020-11-22 23:35 | REPVR ---
PROCEDURE INFORMATION: Exam: CT Angiography Chest with Contrast Exam date and time: 11/22/20 (10:50pm) Age: 40 years old Clinical indication: SOB TECHNIQUE: Imaging protocol: Computed tomographic angiography of the chest with contrast. 3D rendering (Not supervised by radiologist): MIP and/or 3D reconstructed images were created by the technologist. Radiation optimization: All CT scans at this facility use at least one of these dose optimization techniques: automated exposure control; mA and/or kV adjustment per patient size (includes targeted exams where dose is matched to clinical indication); or iterative reconstruction. Contrast material: Isovue 370 Contrast volume: 75 ml Contrast route: IV COMPARISON: CTA CHEST of 08/16/20 FINDINGS: Pulmonary arteries: Normal. No pulmonary emboli. Aorta: Unremarkable. No aortic aneurysm. No aortic dissection. Lungs: Minimal linear stranding near the left lung base. No consolidation. No masses. Pleural spaces: Unremarkable. No pneumothorax. No pleural effusion. Heart: Unremarkable. No cardiomegaly. No pericardial effusion. Lymph nodes: Unremarkable. No enlarged lymph nodes. Bones/joints: Unremarkable. No acute fracture. Soft tissues: Unremarkable. Upper abdomen: S/P cholecystectomy. Dilated proximal CBD (11 mm diameter) (partially imaged). IMPRESSION: No acute findings. No filling defects suspicious for pulmonary emboli are seen. There is no CT evidence of aortic dissection nor leakage. No aortic aneurysm is appreciated. S/P cholecystectomy. Electronically signed by: Doreen Walton On 11/22/2020 23:35:21 PM
[2020-11-22] MEDS ORDERED: NS 1,000 ML IV ONE (23:45)
[2020-11-22 23:52] LABS: ALBUMIN 3.6 GM/DL (3.2-5.2); ALT/SGPT 44 U/L (12-78); BILIRUBIN,DIRECT 0.1 MG/DL (0.0-0.2); BILIRUBIN,TOTAL 0.3 MG/DL (0.2-1.0); BLOOD UREA NITROGEN 7 MG/DL (7-18); CALCIUM LEVEL 9.6 MG/DL (8.5-10.1); CARBON DIOXIDE LEVEL 28 MEQ/L (21-32); CHLORIDE LEVEL 103 MEQ/L (98-107); CK-MB VALUE MASS < 1.0 NG/ML (<3.6); CPK CREATINE PHOSPHOKINASE 31 U/L (26-192); GLOMERULAR FILTRATION RATE > 60.0 (>58); GLUCOSE, FASTING 150 MG/DL (70-100); MB/CK RELATIVE INDEX 3.23 (< OR =4); NT-PRO BNP 16 PG/ML (<125); POTASSIUM SERUM 3.4 MEQ/L (3.5-5.1); SODIUM LEVEL 140 MEQ/L (136-145); TOTAL PROTEIN 6.6 GM/DL (6.4-8.2); TROPONIN I 0.05 NG/ML (< 0.10)
[2020-11-23] MEDS ORDERED: ONDANSETRON 4MG/2ML VIAL IV ONE (00:15)
[2020-11-23] MEDS ORDERED: MORPHINE 4 MG/ML 1ML VIAL/SYRINGE (J2270) IV PRN (00:15)
[2020-11-23 01:45] VITALS: BP 110/62
--- NOTE | 2020-11-23 07:25 | ECGEPIP ---
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
== END 2020-11-23 02:00 | disposition home or self-care (01) ==
LOC: M ED 21:40
DX: E87.3 Alkalosis (principal); R00.0 Tachycardia, unspecified; K31.84 Gastroparesis; F32.9 Major depressive disorder, single episode, unspecified; F41.9 Anxiety disorder, unspecified; Z98.84 Bariatric surgery status; Z90.49 Acquired absence of other specified parts of digestive tract; Z79.899 Other long term (current) drug therapy; Z88.6 Allergy status to analgesic agent; Z88.2 Allergy status to sulfonamides; Z88.5 Allergy status to narcotic agent; Z91.018 Allergy to other foods
CPT/HCPCS: 71045; 71275; 80047; 80048; 80076; 82550; 82553; 82803; 83605; 83880; 84484; 85025; 85610; 87631; 93005; 93041; 96360; 96361; 96374; 96375; 99285; J1642; J2270; J2405; Q9967

== ENCOUNTER 2020-12-11 19:56 | Emergency (ER) | payer BC, OTHER ==
[~2020-12-11] VITALS: Ht 170.2 cm; Wt 77.3 kg
[~2020-12-11 19:56] MED LIST changes: +METH-1164; -METH1TAB40
--- OUTSIDE RECORDS SUMMARY | 2020-12-11 20:06 | CCD | Summary of Care ---
Author Author [facility] Organization [facility] Address Unknown Phone Unavailable Care Team Providers Care Explosive Ordnance Disposal Specialist Name Role Phone Jose Simmons MD PCP Reason for Referral * Surgical (Routine) Referred By Contact Referred To Contact Status Reason Specialty Diagnoses / Procedures Barb Gomez MD [address] [place] [phone] Email: [email or web address] Surgery Diagnoses Required Malfunction of jejunostomy tube * Home Health Care (Routine) Referred By Contact Referred To Contact Status Reason Specialty Diagnoses / Procedures Barb Gomez MD [address] [place] [phone] Email: [email or web address] Home Health Diagnoses Required Services On total parenteral nutrition (TPN) Reason for Visit * Auth/Cert Referred By Contact Referred To Contact Status Reason Specialty Diagnoses / Procedures Diagnoses Bleeding from gastrostomy tube site GI Bleed Encounter Details Care Team Description Date Type Department Richard Akins Jr., MD [address] [place] [address] [phone] Stella Palmer DO [address] [place] [address] [phone] On total parenteral nutrition (TPN) (Jayde sharma Dx); Malfunction of jejunostomy tube 12/06/2020 Hospital 05A SURGERY/TRAUMA [facility] - Encounter [address] 12/08/2020 [place] [address] Allergies Comments Active Allergy Reactions Severity Noted [...] as of this encounter (statuses as of 12/08/2020) Medications End Date Status Medication Sig Dispensed [...] every 6 9 (six) hours as needed for Itching Active sucralfate (CARAFATE) 1 Take 1 g by 0 GM/10ML suspension mouth Four times daily as needed Active diphenhydrAMINE HCl 50 50 mg by 0 11/13/ 02 MG/ML Injection Solution Given by IV 0 (BENADRYL) route every 12 (twelve) hours Active Ondansetron HCl 40 Inject 4 mg 0 MG/20ML Injection into the vein 0 Solution (ZOFRAN) every 8 (eight) hours Active Pantoprazole Sodium 40 MG Inject 40 mg 0 10/21 Intravenous Solution into the vein 0 Reconstituted (PROTONIX) every 12 (twelve) hours Active Nystatin [id number] UNIT/GM APPLY CREAM 0 External Cream TOPICALLY 0 (MYCOSTATIN) TWICE DAILY Active Misc. Devices (DURABLE Use as 2 [...] Devices (DURABLE Use as 150 each 5 /202 MEDICAL EQUIPMENT SEE directed. 0 SIG) XX [...] refills) counseling and surveillance, Anticoagulated, History of Felipe-en-Y gastric bypass, On total parenteral nutrition (TPN), Chronic narcotic use Active Misc. Devices (DURABLE Use as 1 each 0 MEDICAL EQUIPMENT SEE directed. AMT 0 SIG) XX MISCIndications: mini one 20 Gastroparesis, Adult fr. 5 cm failure to thrive #[id number] syndrome, Failure to thrive in adult, Jejunostomy tube site pain, Status post bariatric surgery, Functional diarrhea, Body mass index (BMI) 22.0-22.9, adult, Dietary counseling and surveillance, Anticoagulated, History of Felipe-en-Y gastric bypass, On total parenteral nutrition (TPN), [...] surveillance, triglyceride. Anticoagulated, History Thank you. of Felipe-en-Y gastric bypass, On total parenteral nutrition (TPN), Chronic narcotic use, Jejunostomy tube present Active Enoxaparin Sodium 100 Inject 100 mg 0 MG/ML Subcutaneous into the skin Solution (LOVENOX) Two Times Daily Active Ondansetron HCl 4 MG Oral Take 4 mg by 0 Tablet (ZOFRAN) mouth daily Active oxyCODONE HCl 100 MG/5ML Take 1.5 to 2 0 Oral Concentrate mls by mouth (ROXICODONE INTENSOL) or under the tongue every 4 hours as needed for pain. Max daily dose of 12 mls. Active Sodium Chloride Flush 0.9 Inject 10 mLs 0 % Intravenous Solution into the vein before and after each medication. Active Zolpidem Tartrate 10 MG Take 10 mg by 0 Oral Tablet (AMBIEN) mouth nightly Active Diclofenac Sodium 1 % Apply 2 g 0 External Gel (VOLTAREN) topically to painful right hip twice a day. Active Gvoke HypoPen 2-Pack 1 Inject 1 mg 0 MG/0.2ML Subcutaneous into the skin Solution Auto-injector daily as (Glucagon) needed Active Heparin Lock Flush 10 Inject 50 0 UNIT/ML Intravenous Units into Solution the vein after each saline flush. 12/08/2020 Discontinued (Alternate ther apy) Oxycodone HCl 10 MG TABS Take 40 mg by 0 06/18 mouth every 4 9 (four) hours as needed 12/06/2020 Discontinued (Error) Misc. Devices (DURABLE Use as 1 each 0 MEDICAL EQUIPMENT SEE directed. 9 SIG) XX MISCIndications: Start Anticoagulated, History Peptamen 1.5 of Felipe-en-Y gastric via J-Tube. bypass, Failure to thrive Advance 10 in adult, Chronic ml/hr q 8 hrs narcotic use, Jejunostomy to goal rate tube present of 55 ml/hr x 24 hr. To provide 1,980 kcals and 90 grams protein. 12/08/2020 Discontinued (Medication Rec oncilation) Ondansetron 4 MG Oral Take 1 tablet 90 tablet 2 Tablet Disintegrating by mouth 9 (ZOFRAN-ODT)Indications: every 8 Nausea (eight) hours as needed for Nausea 12/08/2020 Discontinued (Dose adjustmen t) Zolpidem Tartrate 5 MG Take 12.5 mg 0 Oral Tablet (AMBIEN) by mouth nightly as needed for Sleep 12/08/2020 Discontinued (Therapy comple romario) sodium chloride 0.9 % Inject 1,000 0 11/02/19 2 SOLN 50 mL with ertapenem mg into the 0 1 g SOLR 1,000 mg vein every 24 (twenty-four) hours 12/08/2020 Discontinued (Medication Rec oncilation) Infuvite Adult Inject 1 mL 0 Intravenous Injectable into the vein 0 daily 12/08/2020 Discontinued (Dose adjustmen t) Enoxaparin Sodium 80 0 MG/0.8ML Subcutaneous 0 Solution (LOVENOX) 12/08/2020 Discontinued (Medication Rec oncilation) Sodium Chloride 0.9 % 0 Intravenous Solution 0 documented as of this encounter (statuses as of 12/08/2020) Active Problems Problem Noted Date Skin irritation 12/08/2020 Overview: jtube site On total parenteral nutrition (TPN) 12/08/2020 Malfunction of jejunostomy tube 12/08/2020 Bleeding from gastrostomy tube site 12/06/2020 Fever 10/27/2019 Acute left flank pain 10/27/2019 GI bleed 09/27/2019 Jejunostomy tube present 09/21/2019 Adult failure to thrive syndrome 07/06/2019 Overview: Added automatically from request for baltazar terrell [id number] Status post bariatric surgery 07/06/2019 Overview: Added automatically from request for baltazar terrell [id number] Abdominal pain 05/31/2019 Encounter for palliative care [...] as of this encounter (statuses as of 12/08/2020) Resolved Problems Problem Noted Date Resolved Date [...] is having symptoms including dizziness and tachycardia. Troy streeter requests transfusion stating her threshold is [...] oxycodone and home antiem etics. History of Felipe-en-Y gastric bypass 08/03/2018 Overview: Performed in 2008, [...] as of this encounter (statuses as of 12/08/2020) Social History Date Tobacco Use Types Packs/Day Years Used Never Smoker 0 Smokeless Tobacco: Never Used Drinks/Week oz/Week Comments Alcohol Use No Sex Assigned at Date Recorded Not on file Date Recorded COVID-19 Exposure Response 12/05/2020 9:31 PM EST In the last month, have you been in contact with No / Unsure someone who was confirmed or suspected to have Coronavirus / COVID-19? documented as of this encounter Last Filed Vital Signs Reading Time Taken Comments Vital Sign 117/68 12/08/2020 11:30 AM EST Blood Pressure 92 12/08/2020 11:30 AM EST Pulse 37.2 C (99 F) 12/08/2020 11:30 AM EST Temperature 16 12/08/2020 11:30 AM EST Respiratory Rate 98% 12/08/2020 11:30 AM EST Oxygen Saturation - - Inhaled Oxygen Concentration 79.2 kg (174 lb 9.6 oz) 12/06/2020 10:00 AM EST Weight 166.5 cm (5' 5.55") 12/06/2020 10:00 AM EST Height 28.57 12/06/2020 10:00 AM EST Body Mass Index documented in this encounter Discharge Instructions * Instructions* Barb Gomez MD - 12/08/2020 1:01 PM EST Please follow up with Dr. Pham at [facility] for your G-tube. They will call yo u back to let you know if they are willing to take care of your J-tube. If they decline, you can follow up with an [facility] Surgeon, a referral has been placed. Please follow up with your GI doctor Dr. Bergman post discharge. Please follow up with your Neurologist Dr. Isabel post discharge for clarifica tion regarding your seizure medications. Please follow up with your PCP 1 week within discharge! Please continue TPN as scheduled. Please continue to take care of your wound care Jtube site with the following in structions: Cleanse with NS, pat dry. Apply light dusting of stoma powder, dab with skin pre p, allow to dry at least 30 seconds. Apply duoderm signal cut to fit around site . Change q2-3 days and prn. documented in this encounter Progress Notes * Enrrique Cali, RN - 12/08/2020 2:20 PM EST D/c paperwork reviewed w/ pt, all questions answered. Pt aware of f/u mariely which she wanted to schedule herself. Pt left w/ drsg supplies and paper Rx. * Westley Angulo, Jose - 12/08/2020 11:24 AM EST * Jose Enrique Agustin MD - 12/07/2020 4:52 PM EST GI INPATIENT PROGRESS NOTE SUBJECTIVE: Patient seen and examined at bedside. Not acute overnight events. No further episodes of bleeding. Stable. Gastrointestinal ROS: as per above Other RoS: Complete ROS was done which is unchanged from what is stated in the p revious GI note and above. PMH/PSH/Family/Social history reviewed, remains unchanged from prior GI note. Medication list independently reviewed. OBJECTIVE: Blood pressure 113/70, pulse 89, temperature 36.6 C (97.9 F), temperatur e source Oral, resp. rate 17, height 1.665 m (5' 5.55"), weight 79.2 kg (174 lb 9.6 oz), SpO2 94 %, not currently . General: NAD CVS: S1, S2 [place], No chest tenderness. 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 Abdomen: Bowel sounds present. Soft, Non tender, non distended. No evidence of f ree fluid. Musculoskeletal: No edema or tenderness. Skin: Warm, No cyanosis. Psychiatric: Normal Mood and affect. Laboratory Data All relevant GI laboratory data, outside records and imaging that were available were reviewed by me. Pertinent ones are listed here. Lab 11/01/1934611/02/19 0450 12/06/20 0327 12/06/20 0912/06/20201412/07/20 0612 HGB 9.1* 10.6* 10.8* 11.6 11.6 10.8* HCT 28.6* 32.4* 32.5* 35.9* 36.6 32.7* MCV 74.6* 74.6* 85.6 85.4 93.0 85.5 PLT 212 279 280 323 296 269 WBC 3.5* 7.7 5.6 6.8 4.6 4.2 Lab 11/01/19 0347 11/02/19 0450 11/02/19 0748 12/06/20 03212/06/20 0912/07/20 0612 NA 138 136 136 141 -- 139 K 3.9 5.8* 4.9 3.3* -- 4.3 CL 100 100 100 108* -- 107 BICARBONATE 31* 29 28 23 -- 25 BUN 6 16 16 7 -- 14 CREATININE 0.50 0.52 0.61 0.62 0.69 0.45* Lab 09/28/19 0534 09/29/19 0536 09/30/19 0331 10/01/19 0322 10/28/19 0639 12/07/20 0612 PROT 6.2* 5.6* 5.5* 6.2* 5.2* 6.0* ALBUMIN 3.8 3.4* 3.5 3.9 2.9* 4.1 ALT 9 8 7 10 14 6 AST 11 11 12 18 25 9 ALKPHOS 90 72 69 73 205* 70 TBILI 0.8 0.5 0.4 0.4 0.9 0.4 BILIDIR <0.2 <0.2 <0.2 <0.2 -- -- Lab 07/03/18 1850 05/31/19 0659 09/27/19 1900 09/28/19 0534 12/06/20 0920 LIPASE 104* -- -- -- 140* -- INR -- < > 1.02 1.07 -- 1.00 < > = values in this interval not displayed. ASSESSMENT & PLAN: Ms. Claude Diaz is a 40 y.o. female patient with a past medical history, including RYGB in 2008 complicated by marginal ulcers, gastroparesis, TPN depen dent (after several revisions on tube feedings), who is seen in consultation for abdominal pain, nausea and bloody output from feeding tube. Hemodynamically sta ble. Labs on admission showed H/H 10.8/32 (no significant changes from baseline in 10/2019). CT angio did not reveal any active bleeding. IR and surgery team laura luated the patient. No need for acute intervention at this time. The patient has been hemodynamically stable. H/H remains stable as well. No furt her bleeding seen. At this time, continue with PPI BID. There is no need for fur ther workup from GI standpoint. The patient needs close follow up with her GI pr oviders at [facility]. GI service will sign off, please call if any further questions. The patient was seen and discussed with Katey Martinez MD 4:52 PM 12/07/2020 I saw,examined and evaluated the patient personally. Discussed with the residen t/fellow and agree with the residents/fellows findings and plans as written, jodi ng with any supplemental dictated and/or attending documentation in the patient record by myself. Jose Enrique Agustin MD Division of GI Advanced Endoscopy * Enrrique Cali RN - 12/07/2020 4:01 PM EST This rfp writer assumed care of pt from [id number], reviewed previous cloth edge singer a nd in agreement. See flow sheets for further care provided. * Viridiana Armijo MD - 12/07/2020 2:23 PM EST Brief Surgery Progress Note Patient has remained hemodynamically stable and H/H relatively stable. When seen this morning she stated there had been only minimal output from the G tube over night. It appeared dark. Seen by GI and IR with no plans for acute intervention as patient has remained stable without ongoing signs of active bleed. CTA negati ve. Surgery to sign off at this time. Patient should continue to follow-up with Dr. Hernandez as scheduled. Please call with any further questions or concerns. Discussed with Dr. Ashton. Viridiana Armijo MD, PhD Resident Physician, PGY-1 * Barb Gomez MD - 12/07/2020 1:55 PM EST Inpatient Medicine Progress Note Hospital day # 1 SUBJECTIVE: Patient seen and examined at bedside. She is hemodynamically stable, alert and oriented x3. Minimal bloody drainage from ostomy bag today, it is more bilious i n colour. Her hemoglobin has been stable. Patient had an episode of psychogenic seizure yesterday afternoon. Stuttering an d bilaterally upper extremity twitching noted, however patient following command s and able to answer most questions. No post ictal phase. No bowel or urinary in continence. No focal neurological deficits post episode. Review of Systems Constitutional: Negative for chills, fatigue and fever. HENT: Negative for hearing loss, sinus pressure, sinus pain, tinnitus and voice change. Eyes: Negative for pain. Respiratory: Negative for cough and shortness of breath. Cardiovascular: Negative for chest pain and palpitations. Gastrointestinal: Negative for abdominal distention, blood in stool, diarrhea, n ausea and vomiting. G-tube placed with bloody output in ostomy bag Genitourinary: Negative for dysuria, hematuria and urgency. Musculoskeletal: Negative for back pain. Skin: Negative for rash. Neurological: Negative for dizziness and headaches. OBJECTIVE: Temp: [36.1 C (97 F)-37.3 C (99.1 F)] 36.5 C (97.7 F) Pulse: [78-92] 87 Resp: [18] 18 BP: (101-117)/(61-70) 110/70 SpO2: [97 %-100 %] 99 % O2 Therapy: Room air Intake/Output Summary (Last 24 hours) at 12/07/2020 1355 Last data filed at 12/07/2020 0700 Gross per 24 hour Intake 590.48 ml Output 125 ml Net 465.48 ml Physical Exam Constitutional: She is oriented to person, place, and time and well-developed, w ell-nourished, and in no distress. No distress. HENT: Head: Normocephalic and atraumatic. Eyes: Pupils are equal, round, and reactive to light. Neck: Normal range of motion. No tracheal deviation present. Cardiovascular: Normal rate and regular rhythm. Pulmonary/Chest: Effort normal. She has no rales. Abdominal: Soft. She exhibits no distension. There is abdominal tenderness. Gtube placed, minimal drainage from ostomy bag in 24 hours. Musculoskeletal: Normal range of motion. General: No deformity or edema. Neurological: She is alert and oriented to person, place, and time. Strength 5/5 and sensation intact in upper and lower extremities bilaterally. Skin: No rash noted. She is not diaphoretic. Laboratory independently reviewed Recent Labs Lab 12/06/20 0327 12/06/20 0920 12/07/20 0612 NA 141 -- 139 K 3.3* -- 4.3 CL 108* -- 107 BICARBONATE 23 -- 25 BUN 7 -- 14 CREATININE 0.62 0.69 0.45* GLUCOSE 128 -- 134 No results for input(s): CKTOTAL, TROPONINI, TROPONINT, CKMB, CK in the last 168 hours. Recent Labs Lab 12/06/20 0920 12/06/20201412/07/20 0612 WBC 6.8 4.6 4.2 HGB 11.6 11.6 10.8* HCT 35.9* 36.6 32.7* MCV 85.4 93.0 85.5 PLT 323 296 269 NEUTOPHILPCT 76 68 66 MONOPCT 7 7 9 Lab Results Component Value Date PROT 6.0 (L) 12/07/2020 ALBUMIN 4.1 12/07/2020 AST 9 12/07/2020 ALT 6 12/07/2020 TBILI 0.4 12/07/2020 ALKPHOS 70 12/07/2020 LIPASE 140 (H) 09/28/2019 Recent Labs Lab 12/06/20 0920 INR 1.00 Lab Results Component Value Date HGBA1C 4.9 05/10/2018 TSH 1.340 03/02/2017 MEDICATIONS: Scheduled Meds: enoxaparin 80 mg Subcutaneous 2 times per day fluoxetine 20 mg Oral Daily sodium chloride flush 10 mL Intravenous Q12H And heparin lock flush 3 mL Intravenous Q12H sodium chloride flush 10 mL Intravenous Q12H And heparin lock flush 3 mL Intravenous Q12H pantoprazole 40 mg Intravenous BID Continuous Infusions: TPN adult PRN Meds:.acetaminophen (TYLENOL) tablet, albuterol, diphenhydrAMINE, heparin lo ck flush, sodium chloride flush AND heparin lock flush, sodium chloride flus h AND heparin lock flush, LORazepam, morphine sulfate, ondansetron, sodium c hloride (preservative free), sodium chloride, sodium chloride flush, zolpidem ASSESSMENT & PLAN: Ms. Claude Diaz is a 40 y.o. year old female past medical history of Rou x-en-Y gastric bypass surgery performed in 2008, chronic G tube s/p recent repla cement at [facility] 2 weeks ago, chronic parenteral nutrition, chronic abd ominal pain, gastroparesis and placement of G-tube and J-tubes, and psychogenic seizure disorder who presented with acute onset bloody output from G-tube site. Admitted to medicine for further management of acute GI hemorrhage. #Hemodynamically stable GI hemorrhage Patient presented with 2 ostomy bags of bloody output from G-tube Hemodynamically stable, H&H stable at 11/35.9 Monitor CBC OD Continue IV Protonix 40 mg twice daily Surgery consulted, no interventions at this time GI on board, no acute interventions, recommended IR consult for G-tube pusher agement - No IR intervention does not warrant intervention at this time - We are continuing with anticoagulation at this time in the setting of stable H gb #Chronic parenteral nutrition Home TPN started #Protein C and S deficiency - Patient endorses lovenox 100 BID at home - Started on therapeutic dose 80 BID at this time, continued in the setting of s table Hgb #Gastroparesis #Replacement of G-tube Chronic G-tube status post replacement at [facility] on 10/25/2020 CTAP does not show any extravasation #Psychogenic seizures (?) - Patient 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 - Awaiting pharmacy med reccs - Neurology consulted, awaiting reccs. #Pain Control - Home oxy 40 mg Q4h at this time. - Continue with morphine 3 mg Q3 PRN and IV Tylenol #GERD -POA -Home protonix changed to IV BID #Depression -POA -C/w home fluoxetine #Asthma -POA -Not currently in exacerbation -C/w albuterol PRN DVT Prophylaxis with therapeutic lovenox continued Disposition and estimated discharge date: TBD Barb Gomez MD PGY-1 Associated attestation - Stella Palmer DO - 12/07/2020 5:16 PM EST I had a conversation with the IR attending today, she has leakage from her J tub e site, which is causing her skin irritation in the adjacent area. Per IR there is possability for exchange while patient is hospitalized, he stated he would ge t back to me regarding this. Per GI no further recommendations, she should follo w up with her GI doctor at [facility]. Stable h/h so continuing lovenox for now, output in ostomy bag is bilious and no further dark color/blood noted, Andr ea states this is her normal drainage now. She feels okay. Nuclear scan not bein g performed as d/w nuclear medicine and since patient is not actively bleeding t skip do not wish to perform as it will likely be low yield. Will follow up with Kimberley Cerda about possible J tube exchange in house. Attending Addendum: I personally interviewed, examined, and completely evaluated the patient and agr ee with the clinical findings and have discussed the plan for Claude Melissa Ch s with the resident. I have reviewed their note and agree with the findings and plan as documented for Claude Diaz. Overall amount of data reviewed, lev el of risk, complexity and medical decision making is: moderate Stella Palmer DO Department of Medicine 12/07/2020 5:16 PM * Whit Chamberlain RD - 12/07/2020 11:16 AM EST Medical Nutrition Therapy: Pt continues on TPN for nutrition support. Home TPN was resumed last night. Macr onutrients reflect home order. Labs and meds reviewed. Lytes WNL. Pt received 40 mEq KCL yesterday (12/06). Pt h ad large jump in K from yesterday to today, will make small change today. Recommendations: - Renew TPN with the following changes -- increase K to 70 mEq - Daily BMP, Mg, Phos and replete PRN * Adrian Champagne NP - 12/07/2020 10:14 AM EST IR Staff Note: Patient seen at bedside to evaluate for reports of bleeding from gastrostomy tub e site. Per documentation, G-tube was placed at [facility] on 10/25/20 for ve nting purposes (history of gastric bypass). On today's exam, the gastrostomy tub e is draining green, gastric contents. Her H&H has been stable since admission, and her vital signs have also remained stable (no hypotension, tachycardia). CTA abdomen obtained yesterday demonstration no active extravasation or malposition of either the gastrostomy tube or jejunostomy tube. Findings discussed with IR attending Dr. Parker. No clinical indication for active bleeding at this time, and therefore no IR intervention warranted at this time. Incidentally noted during exam was the patient's skin around jejunostomy tube site is ulcerated from persistent leakage at site. Proper skin and site care discussed with patient. IR recommending referral to service that placed jejunostomy tube to address this issue. These recommendations were discussed with primary team resident Dr. Gomez. Please re-consult IR if there is a clinical change/concerns for active bleeding. Adrian Champagne SCOOPING MACHINE TENDER-C Interventional Radiology * Thalia Puga RN - 12/06/2020 3:38 PM EST All times are approximated 14:30: While at bedside talking with patient, she begin to have seizure like act ivity unresponsive, eye twitching, and upper and lower extremities malina f or approximately 2 mintues. Vital signs taken, within normal limits, pupils roun d, equal and reactive. 14:35 patient responding to simple commands, speaking to this rfp writer expressing that she takes Keppra at home. MD Barb Gomez paged and made aware. Sparkleirina josette at bedside. 14:45 patient asked this rfp writer if her DNR/DNI paperwork were present in her juliana rt, and that she would like to leave AMA. 'aster Palmer and Jw on unit and trent kang aware. sheet metal lay out worker called, code status changed to DNR/DNI. All seizure precautions now in place, pt resting in bed. * Emma Banks RN - 12/06/2020 2:32 PM EST Case Management Screen & Assessment Patient Name: Claude Diaz Gender: female Date of : 1980 Admission Dx: Bleeding from gastrostomy tube site [K94.21] Age: 40 y.o. Admission: 12/06/2020 2:22 AM Attending Provider: Stella Palmer DO High Risk Criteria - Prior to Admission/Upon Arrival SCREENPLAY WRITER-Type of Residence: Private Residence SCREENPLAY WRITER- Home Care Services: Yes SCREENPLAY WRITER- Type of Home Care Services: Nurse Limited Home Supports/Lives Alone?: No Multi trauma/Critical care/Step down admit?: No Head/Spinal cord injury?: No Self Pay: No Multiple ED visits?: No Related/Unplanned readmission within 30 days?: No Complex/New medical issues: GIB Relevant comorbidities: Felipe-En-Y, Chronic G/J tube, SBO Psychosocial considerations: LIves with Screening Outcome Social Work Consult Needed?: No Further Case Management Needs?: Case Management Needs Chart Review PCP Verified?: Patient has PCP Prior to Admission: Functional/Environmental Assessment Bathing: Independent Dressing: Independent Toileting: Independent Medication administration: Independent Transfers: Independent Ambulation: Independent Meal preparation: Independent Number of stairs into home: 3 Number of stairs to bathroom: 0 Number of stairs to bedroom: 0 Durable Medical Equipment (DME): Enteral, Infusion DME Company Name: [employer] Prior to Admission: Support Services Above agencies notified about Admission?: Yes Case Management Re-Review Case Management Re-Review Needed?: Yes Case Management Re-Review Date: 12/08/20 Discharge Planning Living Arrangements: Spouse/significant other Support Systems: Spouse/significant other Type of Residence: Private residence Is this patient appropriate for transfer to [facility]?: No Patient/family informed of need for discharge planning?: Yes Patient expects to be discharged to:: home Patient/Agent informed of choice and given written list?: Patient/agent accepted list Actual discharge location : Home-With Homecare Services Does the patient need discharge transport arranged?: No Note: Met with pt to review CM role. Admitted for GIB- per pt has now resolved. Awaiting GI consult. Pt is active with [facility] for TPN and [employer] for TF supplies - would like to switch back to [facility] for TF if possible. CM has reached out to [facility] to see if this is feasible. CM will follow and assist with d/c p kevon as needed. Emma Banks * Barb Gomez MD - 12/06/2020 1:24 PM EST Inpatient Medicine Progress Note Hospital day # 0 SUBJECTIVE: Patient seen and examined at bedside. She is hemodynamically stable, alert and oriented x3. Patient states she is feeling acute on chronic periumbilical abdom inal pain, rated, rated 8 out of 10 in intensity cramping in nature nonradiating . She does receive morphine at home. Continuing to drain bloody output into th e ostomy bag. Patient had an episode of psychogenic seizure in the afternoon. Stuttering and b ilaterally upper extremity twitching noted, however patient following commands a nd able to answer most questions. No post ictal phase. No focal neurological def icits post episode. Review of Systems Constitutional: Negative for chills, fatigue and fever. HENT: Negative for hearing loss, sinus pressure, sinus pain, tinnitus and voice change. Eyes: Negative for pain. Respiratory: Negative for cough and shortness of breath. Cardiovascular: Negative for chest pain and palpitations. Gastrointestinal: Negative for abdominal distention, blood in stool, diarrhea, n ausea and vomiting. G-tube placed with bloody output in ostomy bag Genitourinary: Negative for dysuria, hematuria and urgency. Musculoskeletal: Negative for back pain. Skin: Negative for rash. Neurological: Negative for dizziness and headaches. OBJECTIVE: Temp: [36 C (96.8 F)-36.6 C (97.9 F)] 36 C (96.8 F) Pulse: [76-91] 85 Resp: [16-18] 16 BP: (104-124)/(63-76) 105/63 SpO2: [95 %-97 %] 95 % O2 Therapy: Room air Intake/Output Summary (Last 24 hours) at 12/06/2020 1324 Last data filed at 12/06/2020 0218 Gross per 24 hour Intake 0 ml Output Net 0 ml Physical Exam Constitutional: She is oriented to person, place, and time and well-developed, w ell-nourished, and in no distress. No distress. HENT: Head: Normocephalic and atraumatic. Eyes: Pupils are equal, round, and reactive to light. Neck: Normal range of motion. No tracheal deviation present. Cardiovascular: Normal rate and regular rhythm. Pulmonary/Chest: Effort normal. She has no rales. Abdominal: Soft. She exhibits no distension. There is abdominal tenderness. Gtube placed, bloody drainage from ostomy bag Musculoskeletal: Normal range of motion. General: No deformity or edema. Neurological: She is alert and oriented to person, place, and time. Strength 5/5 and sensation intact in upper and lower extremities bilaterally. Skin: No rash noted. She is not diaphoretic. Laboratory independently reviewed Recent Labs Lab 12/06/2032612/06/20919 NA 141 -- K 3.3* -- CL 108* -- BICARBONATE 23 -- BUN 7 -- CREATININE 0.62 0.69 GLUCOSE 128 -- No results for input(s): CKTOTAL, TROPONINI, TROPONINT, CKMB, CK in the last 168 hours. Recent Labs Lab 12/06/2032612/06/20919 WBC 5.6 6.8 HGB 10.8* 11.6 HCT 32.5* 35.9* MCV 85.6 85.4 PLT 280 323 NEUTOPHILPCT 68 76 MONOPCT 9 7 Lab Results Component Value Date PROT 5.2 (L) 10/28/2019 ALBUMIN 2.9 (L) 10/28/2019 AST 25 10/28/2019 ALT 14 10/28/2019 TBILI 0.9 10/28/2019 ALKPHOS 205 (H) 10/28/2019 LIPASE 140 (H) 09/28/2019 Recent Labs Lab 12/06/20919 INR 1.00 Lab Results Component Value Date HGBA1C 4.9 05/10/2018 TSH 1.340 03/02/2017 MEDICATIONS: Scheduled Meds: acetaminophen 1,000 mg Intravenous Once enoxaparin 80 mg Subcutaneous 2 times per day fluoxetine 20 mg Oral Daily pantoprazole 40 mg Intravenous BID Continuous Infusions: fat emulsion TPN adult PRN Meds:.acetaminophen (TYLENOL) tablet, albuterol, diphenhydrAMINE, morphine s ulfate, zolpidem ASSESSMENT & PLAN: Ms. Claude Diaz is a 40 y.o. year old female past medical history of Rou x-en-Y gastric bypass surgery performed in 2008, chronic G tube s/p recent repla cement at [facility] 2 weeks ago, chronic parenteral nutrition, chronic abd ominal pain, gastroparesis and placement of G-tube and J-tubes, and psychogenic seizure disorder who presented with acute onset bloody output from G-tube site. Admitted to medicine for further management of acute GI hemorrhage. #Hemodynamically stable GI hemorrhage Patient presented with 2 ostomy bags of bloody output from G-tube Hemodynamically stable, H&H stable at 11/35.9, transfuse for Hgb less than 7 Monitor CBC twice daily Continue IV Protonix 40 mg twice daily Surgery consulted, no interventions at this time GI on board, awaiting recs - We are continuing with anticoagulation at this time in the setting of stable H gb #Chronic parenteral nutrition Home TPN started #Protein C and S deficiency - Patient endorses lovenox 100 BID at home - Started on therapeutic dose 80 BID at this time, continued in the setting of s table Hgb #Gastroparesis #Replacement of G-tube Chronic G-tube status post replacement at [facility] on 10/25/2020 CTAP does not show any extravasation #Psychogenic seizures (?) - Patient admits to hx of pseudoseizures, however endorses taking keppra 500 BID at home - Medication hx unclear, consult to pharmacy for med reccs placed. #Pain Control - Unclear if patient taking morphine or oxycodone at this time, last dispensed in 2019 as per iSTOP - Continue with morphine 3 mg Q3 PRN and IV Tylenol #GERD -POA -Home protonix changed to IV BID #Depression -POA -C/w home fluoxetine #Asthma -POA -Not currently in exacerbation -C/w albuterol PRN DVT Prophylaxis with therapeutic lovenox continued Disposition and estimated discharge date: TBD Barb Gomez MD PGY-1 Associated attestation - Stella Palmer DO - 12/06/2020 7:40 PM EST We will do some more investigation into her Keppra dosing, she does not know who is filling this for her, only that the last Rx came from [facility] and was sent to her pharmacy in [facility]. She used to follow with a Neurologist in [place] but when asked why she stopped going she became visibly upset and said " I don't like him". We did not probe this as it seemed to cause her distress to speak of this provider. We will try to obtain medical records tomorrow from Alessandro mehta regarding her Keppra dosing, she didn't have any urine/bowel incontinence, no blood in her mouth, no post ictal phase although she doesn't remember having a seizure today. We will consider consulting Neurology if she continues to have seizure like episodes, she carries a history per chart review of psychogenic se izures. I am not sure where her bleeding is coming from into her ostomy bags, sp yola with GI, no plans for scope at this point, recommending having IR evaluate t ubes for potential site of bleeding from the tracts, we will do this tomorrow. W e will try to obtain outpatient fill history of controlled pain medications as A ndrea says she didn't take morphine at home but it is listed in her medication c harts. She seems to have element of chronic abdominal pain. Will follow up with IR in the morning. H/H is stable, hemodynamically stable, c/w lovenox for protei n c and s deficiency for now, if she becomes unstable or h/h drops will consider to d/c at that time. Monitoring h/h closely. Attending Addendum: I personally interviewed, examined, and completely evaluated the patient and agr ee with the clinical findings and have discussed the plan for Claude rodarte with the resident. I have reviewed their note and agree with the findings and plan as documented for Claude Diaz. Overall amount of data reviewed, le mamadou of risk, complexity and medical decision making is: moderate Stella Palmer DO Department of Medicine 12/06/2020 7:39 PM * Whit Chamberlain, RD - 12/06/2020 9:48 AM EST Department of Food and Nutrition Nutritional Evaluation and Care Plan TPN dependent Basic Evaluation Patient is a 40 y.o. female, admitted on [id number] with a diagnosis of Bleeding fro m gastrostomy tube site. Past Medical History: Past Medical History: Diagnosis Date Acute pancreatitis 10/14/2009 Has had multiple episodes. No clear etiology. Allergy, unspecified not elsewhere classified Anxiety Asthma childhood Blood transfusion without reported diagnosis ALERGIC ITCHING, TAKES BENADRYL PRIOR/ LAST BLOOD TRANSFUSSION 02/2019 Chronic back pain Depression Diabetes mellitus Prior to gastric bypass but no longer GERD (gastroesophageal reflux disease) H/O gastric bypass Hx of blood clots RIGHT NECK Low back pain Spinal Fusion Malabsorption IV hydration at home MRSA (methicillin resistant staph aureus) culture positive 2016 leg wound, and couple times after that Normocytic anemia 08/03/2018 PE (pulmonary thromboembolism) septic and additional in July 2020 Pernicious anemia PICC (peripherally inserted central catheter) in place SBO (small bowel obstruction) VRE (vancomycin-resistant Enterococci) Past Surgical History: Past Surgical History: Procedure Laterality Date lumbar decompression 08/2013 with spacers ABDOMINAL SURGERY BACK SURGERY CHOLECYSTECTOMY COLONOSCOPY 01/03/2017 normal to TI with biopsies GASTROPLASTY 10/03/2009 felipe-en-Y GASTROSTOMY TUBE PLACEMENT HYSTERECTOMY 2011 jejunostomy MEDIPORT INSERTION, SINGLE MEDIPORT REMOVAL ID COLONOSCOPY FLX DX W/COLLJ SPEC WHEN PFRMD N/A 04/06/2019 Procedure: COLONOSCOPY, FLEXIBLE, PROXIMAL TO SPLENIC FLEXURE DX, W/WO SPECIMEN S/COLON DECOMP (SEP PROC); Surgeon: Mateus Bergman MD; Location: OR [facility]; Service: Endoscopy; Laterality: N/A; ID COLONOSCOPY W/BIOPSY SINGLE/MULTIPLE N/A 04/06/2019 Procedure: COLONOSCOPY, FLEXIBLE, PROXIMAL TO SPLENIC FLEXURE W/BX, SINGLE/MULT IPLE; Surgeon: Mateus Bergman MD; Location: OR [facility]; Service: Endoscopy; Laterality: N/A; ID EGD TRANSORAL CONTROL BLEEDING ANY METHOD N/A 10/17/2018 Procedure: UPPER GI ENDOSCOPY W/CONTROL, BLEEDING, ANY METHOD; Surgeon: Uche Jenkins MD; Location: OR ; Service: Endoscopy; Laterality: N/A; ID EGD TRANSORAL CONTROL BLEEDING ANY METHOD N/A 09/27/2019 Procedure: UPPER GI ENDOSCOPY with injection of epinephrine and clip applicatio n; Surgeon: Dhara Torres MD; Location: OR ; Service: Endoscopy; Late rality: N/A; ID ENDOSCOPY UPPER SMALL INTESTINE N/A 08/12/2018 Procedure: SMALL INTESTINAL ENDO/ENTEROSCOPY, > 2ND PORTION DUODENUM, NOT W/ILEUM DX W/WO SPECIMEN (SEP PROC); Surgeon: Mateus Bergman MD; Location: OR ENDO; Service: Endoscopy; Laterality: N/A; ID ENDOSCOPY UPPER SMALL INTESTINE W/BIOPSY N/A 08/12/2018 Procedure: SMALL INTESTINAL ENDO/ENTEROSCOPY, > 2ND PORTION DUODENUM, NOT W/ILEUM W/BX, SINGLE/MULTIPLE; Surgeon: Mateus Bergman MD; Location: OR ENDO; Service: Endoscopy; Laterality: N/A; ID ESOPHAGOGASTRODUODENOSCOPY SUBMUCOSAL INJECTION N/A 08/12/2018 Procedure: UPPER GI ENDOSCOPY W/DIRECTED SUBMUCOSAL INJECTION(S), ANY SUBSTANCE ; Surgeon: Mateus Bergman MD; Location: OR ENDO; Service: Endoscopy; La terality: N/A; ID ESOPHAGOGASTRODUODENOSCOPY TRANSORAL DIAGNOSTIC N/A 03/09/2018 Procedure: UPPER GI ENDOSCOPY with possible biopsy; Surgeon: Ramakrishna Mcgovern MD; Location: OR ENDO; Service: Endoscopy; Laterality: N/A; ID INSERT GASTROSTOMY TUBE PERCUTANEOUS N/A 08/03/2018 Procedure: INSERTION GASTROSTOMY TUBE, PERCUTANEOUS, UNDER FLUOROSCOPIC GUIDANC E INCLUDING CONTRAST; Surgeon: Jose Enrique Agustin MD; Location: OR ENDO; Service: Endoscopy; Laterality: N/A; ID LAP,JEJUNOSTOMY N/A 09/01/2019 Procedure: LAPAROSCOPY, SURGICAL; JEJUNOSTOMY; Surgeon: Ramakrishna Mcgovern MD; Location: OR [facility]; Service: General; Laterality: N/A; ID LAP,SURG,ENTERECTOMY,RESECT & ANAST N/A 09/02/2018 Procedure: DAIGNOSTIC LAPAROSCOPY WITH BIOPOSY, REDUCTION OF SMALL BOWEL VOLVU MARTHA, CLOSURE OF GASTROSTOMY, SMALL BOWEL RESECTION AND PUSH ENTEROSCOPY; Surgeo n: Ramakrishna Mcgovern MD; Location: OR ; Service: General; Laterality: N/A; ID REVISION GASTROPLASTY,OBESITY, NON-TAM RESTRICT DEVICE N/A 09/01/2019 Procedure: Laparoscopic REVISION, GASTRIC RESTRICTIVE PROCedure and laparoscopi c jejunostomy,, upper endoscopy; Surgeon: Ramakrishna Mcgovern MD; Location: OR [facility] ; Service: General; Laterality: N/A; STOMACH SURGERY 2016 pt states "resection" TONSILLECTOMY TUBAL LIGATION UPPER GASTROINTESTINAL ENDOSCOPY 01/03/2017 no obvious abnl to mid-jejunum, RNY anatomy noted Home Medications: Prior to Admission medications Medication Sig Start Date End Date Taking? Authorizing Provider albuterol (PROVENTIL HFA;VENTOLIN HFA) 108 (90 Base) MCG/ACT inhaler Inhale 2 pu ffs into the lungs every 6 (six) hours as needed 05/05/19 Yes Historical Presley viramontes MD diphenhydrAMINE HCl 50 MG/ML Injection Solution (BENADRYL) 50 mg by Given by IV route nightly 11/13/19 Yes Historical Provider, Enoxaparin Sodium 80 MG/0.8ML Subcutaneous Solution (LOVENOX) 01/08/20 Yes Hist orical Provider, fluoxetine (PROZAC) 20 MG capsule Take 20 mg by mouth daily 03/22/19 Yes Histori mihaela Provider, hydrOXYzine (ATARAX) 25 MG tablet Take 25 mg by mouth every 6 (six) hours as nee ded 07/02/19 Yes Historical Provider, Nystatin [id number] UNIT/GM External Cream (MYCOSTATIN) APPLY CREAM TOPICALLY TWICE DAILY 01/04/20 Yes Historical Provider, Ondansetron 4 MG Oral Tablet Disintegrating (ZOFRAN-ODT) Take 1 tablet by mouth every 8 (eight) hours as needed for Nausea 10/02/19 Yes Hari Laughlin MD Ondansetron HCl 40 MG/20ML Injection Solution (ZOFRAN) Inject 1 mL into the vein daily 11/02/19 Yes Historical Provider, Oxycodone HCl 10 MG TABS Take 40 mg by mouth every 4 (four) hours as needed 05/22 07/09 Yes Historical Provider, Pantoprazole Sodium 40 MG Intravenous Solution Reconstituted (PROTONIX) Inject 4 0 mg into the vein daily 11/02/19 Yes Historical Provider, sucralfate (CARAFATE) 1 GM/10ML suspension Take 1 g by mouth Four times daily as needed Yes Historical Provider, Zolpidem Tartrate 5 MG Oral Tablet (AMBIEN) Take 12.5 mg by mouth nightly as nee ded for Sleep Yes Historical Provider, Infuvite Adult Intravenous Injectable Inject 1 mL into the vein daily 11/02/19 Historical Provider, MD Telles. Devices (DURABLE MEDICAL EQUIPMENT SEE SIG) XX MISC Use as directed. Syd-K ey button gastrostomy tube 6.5 cm length. 02/10/20 MD Yoly Rothc. Devices (DURABLE MEDICAL EQUIPMENT SEE SIG) XX MISC Use as directed. Enter al feeds: Vital AF 1.2 calorie , 5 bottles per day. (150 per month) 02/17/20 MD Yoly Villalobosc. Devices (DURABLE MEDICAL EQUIPMENT SEE SIG) XX MISC Use as directed. Enter al Feeds: Vital AF 1.2 calorie, 5 bottles per day(150/month). With 5 months of r efills. 03/02/20 Ramakrishna Mcgovern MD [facility]. Devices (DURABLE MEDICAL EQUIPMENT SEE SIG) XX [place] Use as directed. Cait [employer]im[employer] Peptide 1.5 Tube Feed 2.84 bottles a day or 923 ml a day. (3 bottles a day , 90 bottles a month, with 5 refills) 03/15/20 Ramakrishna Mcgovern MD [facility]. Devices (DURABLE MEDICAL EQUIPMENT SEE SIG) XX [place] Use as directed. FELIPE quiroz ini one 20 fr. 5 cm #[id number] 03/15/20 Ramakrishna Mcgovern MD [facility]. Devices (DURABLE MEDICAL EQUIPMENT SEE SIG) XX [place] Use as directed. Pleas e draw the following labs weekly: CMP, Mg, Phos, CBC and diff, prealbumin. And a monthly triglyceride. Thank you. 03/28/20 Ramakrishna Mcgovern MD Sodium Chloride 0.9 % Intravenous Solution 01/05/20 Historical Provider, sodium chloride 0.9 % SOLN 50 mL with ertapenem 1 g SOLR 1,000 mg Inject 1,000 m g into the vein every 24 (twenty-four) hours 11/02/19 TROY Reina [facility]. Devices (DURABLE MEDICAL EQUIPMENT SEE SIG) XX [place] Use as directed. Start Peptamen 1.5 via J-Tube. Advance 10 ml/hr q 8 hrs to goal rate of 55 ml/hr x 24 hr. To provide 1,980 kcals and 90 grams protein. Patient not taking: Use as directed. Reported on 11/29/2020 09/21/19 12/06/20 Ramakrishna Mcgovern MD Multidisciplinary Problems: Principal Problem: Bleeding from gastrostomy tube site Current Diet/Tube Feed/TPN Order: Diet Adult; NPO Active, Scheduled Medications: Current Facility-Administered Medications Medication Dose Route Frequency Provider Last Rate Last Admin acetaminophen (OFIRMEV) infusion 1,000 mg 1,000 mg Intravenous Once Cand ice Monson, DO acetaminophen (TYLENOL) tablet 650 mg 650 mg Oral Q6H PRN Migdalia Monson , DO albuterol (PROVENTIL HFA) inhaler 2 puff 2 puff Inhalation Q6H PRN Sol ce Monson, DO fluoxetine (PROZAC) capsule 20 mg 20 mg Oral Daily Migdalia Monson, DO morphine sulfate (PF) injection 2 mg 2 mg Intravenous Q3H PRN Thalia prakash MD 2 mg at 12/06/20 0934 pantoprazole (PROTONIX) injection 40 mg 40 mg Intravenous BID Nette curran MD 40 mg at 12/06/20 0921 potassium chloride 10 mEq in 100 mL IVPB (premix) 10 mEq Intravenous Q1H Barb Gomez MD 100 mL/hr at 12/06/20 0938 10 mEq at 12/06/20 0938 zolpidem (AMBIEN) tablet 7.5 mg 7.5 mg Oral Nightly PRN Migdalia Monson, DO 7.5 mg at 12/06/20 0323 Allergies: Desyrel [trazodone], Levaquin [levofloxacin], Nsaids, Sulfa antibioti cs, and Tomato Cultural/Temple/Ethnic food preferences: none identified Recent Labs Lab 12/06/20 0327 NA 141 CL 108* BUN 7 GLUCOSE 128 K 3.3* BICARBONATE 23 CREATININE 0.62 CALCIUM 8.2* No results for input(s): POCGLU in the last 72 hours. Lab Results Component Value Date HGBA1C 4.9 05/10/2018 Interview: PMH includes Felipe-en-Y gastric bypass surgery (2008), chronic G-tube s/p recent replacement (10/25/20), chronic TPN, chronic abdominal pain, gastroparesis and jeffery cement of G-tube and J-tubes, Protein C & S deficiency and GERD. Pt presents with a chief complaint of bloody output from g-tube and recurrent abdominal pain. Per Pt, she takes some foods PO such as applesauce or oatmeal. Pt reports taking PO foods every other day and very minimal PO intake. Pt reports no solid foods as they will get stuck in her stomach/GI tract. Pt reports home TF order is 4-6 cans of [employer] Peptide 1.5 per day. However, Pt reports bloating after ~1/2- 1 carton per day. TPN is Pt's sole form of nutrition. Obtained home TPN order fr om [facility]. Will resume home order tonight. See below for recommendations. Of note, Pt with elevated chloride and Pt receives all chloride (no acetate) in TPN bag. Will monitor and adjust tomorrow PRN. Labs: low K Meds: KCl Learning or discharge needs identified: TBD Height: 170.2 cm Weight: 72.6 kg (160 lb) Weight Method: Stated Body Mass Index: Body mass index is 25.06 kg/m. IBW Range (kg): 61.4-67.5 kg Weight change: Pt denies any wt changes Weights (last 14 days) Date/Time Weight Weight Method Drug Calculation Weight [facility] 12/06/20 1000 79.2 kg (174 lb 9.6 oz) Actual: Stand-up scale [place] 12/06/20 0212 72.6 kg (160 lb) Stated JF Wt Readings from Last 20 Encounters: 12/06/20 79.2 kg (174 lb 9.6 oz) 02/10/20 68 kg (150 lb) 11/16/19 70.9 kg (156 lb 6.4 oz) 10/27/19 68.7 kg (151 lb 6.4 oz) Obesity or underweight? No Malnutrition Identified: No Skin: Intact Nutrition Obstacles: Inadequate PO Intake, TPN dependent Energy/Protein Requirement based on: 79.2 kg (actual, 12/06) Current Protein Needs: 1.0-1.2 g per kg body wt. = 79-95 g/day Current Energy Needs: 22-27 kcal per kg body wt. = 4196-1257 kcal/day Estimated Fluid Needs: 1 mL/kcal or per team No intake/output data recorded. No intake/output data recorded. Nutrition Diagnostic Statement(s): Patient is at nutritional risk. Current risk is High. Patient is found to have inadequate oral food/beverage intake related to complex PMH as evidenced by TPN dependent. Nutrition Intervention(s): Parenteral Nutrition: resume home TPN order Nutrition Goal(s)/Outcome(s): Patient will tolerate home TPN during admission Patient will maintain weight during admission Patient will maintain electrolytes WNL during admission Refer to Patient Education for current learning assessment and patient education needs. Refer to Care Plan for Interdisciplinary Care Plan documentation. Recommendations: - Resume home TPN: -- 1935 mL cycled over 12 hours (taper up 1 hour, taper down 1 hour) -- AA: 85 g, Dext: 290 g -- SMOF lipids: 14.5 mL/hr x 12 hours -- total caloric provision from TPN: 1676 kcal/day -- Cl:Brain 1:0 (will monitor Chloride and adjust tomorrow PRN) -- Na: 95 mEq -- K: 60 mEq -- Ca: 10 mEq -- Phos: 16 mmol -- M mEq -- d/t MVI shortage, will skip MVI today as Pt receives daily MVI in TPN at [facility] and will add on PRN -- Individual trace elements: chromium 10 mcg, copper 500 mcg, selenium 60 mcg, zinc 5 mg -- Thiamine 100 mg - Check CMP, Mg, Phos, TG and Ionized calcium tomorrow - May resume home TF order as able, 4-6 cartons [employer] Peptide 1.5 - Dental soft diet as able/safe - Weekly weights Monitoring/Evaluation: Labs, Pt care rounds, Weight, I&O and nutrition intake and tolerance RD will continue to monitor throughout length of stay and will provide additiona l recommendations as appropriate. Please call with any questions/concerns. * Thalia Escalera MD - 12/06/2020 9:16 AM EST * Richard Akins Jr., MD - 12/05/2020 9:55 PM EST Incoming Transfer Note Transferring Hospital: [facility] Reason for transfer: Bloody output from G-Tube HPI: Claude Diaz is a 40 y.o. female with aPMHx including Felipe-en-Y Tam zaina bypass in 2008, chronic G tube s/p recent replacement at [facility] 2 w eeks ago, chronic parenteral nutrition, chronic abdominal pain, and seizure diso rder. She presented with a chief complaint of bloody output from her g-tube, fi lling approximately 2 ostomy bags. She also is experiencing recurrent abdominal pain as well. As per the ED physician workup has been relatively unremarkable, hemoglobin repo rtedly stable at 12 g/dl. Vitals: As per the ED staff the patient is hemodynamically stable, normotensive. To Do: Assess hemodynamic status, call surgery and/or GI if actively bleeding. documented in this encounter H&P Notes * Migdalia Monson, - 12/05/2020 9:59 PM EST History & Physical Patient Claude Diaz PCP Jose Simmons MD Admission Date 12/05/20 Chief Complaint/Reason for Admission: Claude is coming in today as a transfer from OSH with bleeding from G tube Subjective History of Presenting Illness Ms. Claude Diaz is a 40 y.o. female with a past medical history of Felipe- en-Y gastric bypass surgery performed in 2008, chronic G tube s/p recent replace ment at [facility] on 10/25/20, chronic parenteral nutrition, chronic abdomin al pain, gastroparesis and placement of G-tube and J-tubes, Protein C & S deficiency, and GERD. She presented with a chief complaint of bloody output from her g-tube, filling approximately 2 ostomy bags. She also is experiencing recurrent abdominal pain as well. Patient states bleeding began yesterday AM. P er patient, this has not occurred in the past. Also admits to an episode of emes is with streaks of bright red blood that occurred yesterday. Denies nausea, diar ghazala, constipation, rectal bleeding, fever/chills, chest pain, or SOB. At time of presentation patient was hemodynamically stable a afebrile. BP: 124/ 76, O2: 97% on room air, temp: 36.6, pulse: 91. Labs from OSH were significant f or H/H: 12.1/37.1. Platelets: 378. WBC: 7.2. Per chart review, the patient has a very complicated medical history involving R oux-en-Y gastric bypass surgery performed in 2008. She has suffered pain and mul tiple complications since that surgery. The patient confirmed a history of gastr oparesis and placement of G-tube and J-tubes. She reports being unable to tolera te intake through the feeding tubes and has now been dependent on TPN for nutrit ion for about the past year. She states she had the felipe-en-y bypass reversed in August 2019 in hopes that she would then be able to eat, but that did not hel p. She underwent replacement of gastrostomy tube on 10/25/2020 at [facility] with Dr. Hernandez. Code status discussed - patient confirmed full code. 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 Psychogenic nonepileptic seizure 03/02/2017 Iron deficiency 05/02/2018 Open wound of left chest wall 05/08/2018 MRSA (methicillin resistant staph aureus) culture positive Tachycardia Elevated LFTs 05/30/2018 PICC line infection 07/03/2018 Chronic narcotic use 07/04/2018 Chronic, continuous use of opioids 07/31/2018 Chronic abdominal pain 07/31/2018 PICC in Situ 08/03/2018 Depressed 08/03/2018 Elevated serum creatinine 08/03/2018 Internal jugular (IJ) vein thromboembolism, acute 05/08/2019 SIRS (systemic inflammatory response syndrome) 05/10/2019 Encounter for palliative care 05/11/2019 Abdominal pain 05/31/2019 Adult failure to thrive syndrome 07/06/2019 Status post bariatric surgery 07/06/2019 Jejunostomy tube present 09/21/2019 GI bleed 09/27/2019 Fever 10/27/2019 Acute left flank pain 10/27/2019 Resolved Ambulatory Problems Diagnosis Date Noted Upper GI bleed 03/09/2018 Gastric bypass status for obesity Marginal ulcer Bacteremia 05/02/2018 On total parenteral nutrition (TPN) 07/04/2018 Thrombocytosis 07/04/2018 Gastrojejunostomy tube dislodgement 07/31/2018 Malfunction of gastrostomy tube 07/31/2018 Gastric dysfunction 08/02/2018 Gastroparesis 08/03/2018 History of Felipe-en-Y gastric bypass 08/03/2018 Pain around PEG tube site, concen for infection 08/03/2018 Normocytic anemia 08/03/2018 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 Small bowel stricture 08/25/2018 Small bowel volvulus 09/02/2018 Chronic GI bleeding 10/17/2018 Symptomatic anemia 05/08/2019 DNR (do not resuscitate) 05/11/2019 DNI (do not intubate) 05/11/2019 GI bleed 05/31/2019 Acute blood loss anemia 06/01/2019 Past Medical History: Diagnosis Date Acute pancreatitis 10/14/2009 Allergy, unspecified not elsewhere classified Anxiety Asthma Blood transfusion without reported diagnosis Chronic back pain Depression Diabetes mellitus GERD (gastroesophageal reflux disease) H/O gastric bypass Hx of blood clots Low back pain Malabsorption PE (pulmonary thromboembolism) Pernicious anemia PICC (peripherally inserted central catheter) in place SBO (small bowel obstruction) VRE (vancomycin-resistant Enterococci) Past Surgical History TONSILLECTOMY lumbar decompression HYSTERECTOMY BACK SURGERY ID ESOPHAGOGASTRODUODENOSCOPY TRANSORAL DIAGNOSTIC COLONOSCOPY UPPER GASTROINTESTINAL ENDOSCOPY CHOLECYSTECTOMY TUBAL LIGATION GASTROPLASTY STOMACH SURGERY GASTROSTOMY TUBE PLACEMENT jejunostomy ABDOMINAL SURGERY MEDIPORT INSERTION, SINGLE MEDIPORT REMOVAL ID INSERT GASTROSTOMY TUBE PERCUTANEOUS ID ENDOSCOPY UPPER SMALL INTESTINE ID ENDOSCOPY UPPER SMALL INTESTINE W/BIOPSY ID ESOPHAGOGASTRODUODENOSCOPY SUBMUCOSAL INJECTION ID LAP,SURG,ENTERECTOMY,RESECT & ANAST ID EGD TRANSORAL CONTROL BLEEDING ANY METHOD ID COLONOSCOPY FLX DX W/COLLJ SPEC WHEN PFRMD ID COLONOSCOPY W/BIOPSY SINGLE/MULTIPLE ID REVISION GASTROPLASTY,OBESITY, NON-TAM RESTRICT DEVICE ID LAP,JEJUNOSTOMY ID EGD TRANSORAL CONTROL BLEEDING ANY METHOD Social History She is . She. She reports that she has never smoked. She has never used 10sec tobacco. She reports that she does not drink alcohol or use drugs. Family History Her family history includes Crohn's disease in her brother, maternal grandfather , maternal uncle, and mother; Diabetes in her maternal grandmother; Obesity in h er mother. Home Medications Medication Sig albuterol (PROVENTIL HFA;VENTOLIN HFA) 108 (90 Base) MCG/ACT inhaler Inhale 2 pu ffs into the lungs every 6 (six) hours as needed diphenhydrAMINE HCl 50 MG/ML Injection Solution (BENADRYL) 50 mg by Given by IV route nightly Enoxaparin Sodium 80 MG/0.8ML Subcutaneous Solution (LOVENOX) fluoxetine (PROZAC) 20 MG capsule Take 20 mg by mouth daily hydrOXYzine (ATARAX) 25 MG tablet Take 25 mg by mouth every 6 (six) hours as nee ded Infuvite Adult Intravenous Injectable Inject 1 mL into the vein daily Misc. Devices (DURABLE MEDICAL EQUIPMENT SEE SIG) XX MISC Use as directed. Start Peptamen 1.5 via J-Tube. Advance 10 ml/hr q 8 hrs to goal rate of 55 ml/hr x 24 hr. To provide 1,980 kcals and 90 grams protein. Patient not taking: Use as directed. Reported on 11/29/2020 Misc. Devices (DURABLE MEDICAL EQUIPMENT SEE SIG) XX MISC Use as directed. Syd-K ey button gastrostomy tube 6.5 cm length. Misc. Devices (DURABLE MEDICAL EQUIPMENT SEE SIG) XX MISC Use as directed. Enter al feeds: Vital AF 1.2 calorie , 5 bottles per day. (150 per month) Misc. Devices (DURABLE MEDICAL EQUIPMENT SEE SIG) XX MISC Use as directed. Enter al Feeds: Vital AF 1.2 calorie, 5 bottles per day(150/month). With 5 months of r efills. Misc. Devices (DURABLE MEDICAL EQUIPMENT SEE SIG) XX MISC Use as directed. [employer] Peptide 1.5 Tube Feed 2.84 bottles a day or 923 ml a day. (3 bottles a day , 90 bottles a month, with 5 refills) Misc. Devices (DURABLE MEDICAL EQUIPMENT SEE SIG) XX MISC Use as directed. FELIPE quiroz ini one 20 fr. 5 cm #[id number] Misc. Devices (DURABLE MEDICAL EQUIPMENT SEE SIG) XX MISC Use as directed. Galdino carney draw the following labs weekly: CMP, Mg, Phos, CBC and diff, prealbumin. And a monthly triglyceride. Thank you. Nystatin [id number] UNIT/GM External Cream (MYCOSTATIN) APPLY CREAM TOPICALLY TWICE DAILY Ondansetron 4 MG Oral Tablet Disintegrating (ZOFRAN-ODT) Take 1 tablet by mouth every 8 (eight) hours as needed for Nausea Ondansetron HCl 40 MG/20ML Injection Solution (ZOFRAN) Inject 1 mL into the vein daily Oxycodone HCl 10 MG TABS Take 40 mg by mouth every 4 (four) hours as needed Pantoprazole Sodium 40 MG Intravenous Solution Reconstituted (PROTONIX) Inject 4 0 mg into the vein daily Sodium Chloride 0.9 % Intravenous Solution sodium chloride 0.9 % SOLN 50 mL with ertapenem 1 g SOLR 1,000 mg Inject 1,000 m g into the vein every 24 (twenty-four) hours sucralfate (CARAFATE) 1 GM/10ML suspension Take 1 g by mouth Four times daily as needed Zolpidem Tartrate 5 MG Oral Tablet (AMBIEN) Take 12.5 mg by mouth nightly as nee ded for Sleep Allergies: Desyrel [trazodone], Levaquin [levofloxacin], Nsaids, Sulfa antibioti cs, and Tomato Review of Systems Constitutional: Negative for chills and fever. HENT: Negative for sinus pain. Eyes: Negative for visual disturbance. Respiratory: Negative for shortness of breath. Cardiovascular: Negative for chest pain and leg swelling. Gastrointestinal: Positive for abdominal pain and vomiting. Negative for anal bl eeding, blood in stool, constipation, diarrhea and nausea. Genitourinary: Negative for dysuria. Neurological: Negative for headaches. Psychiatric/Behavioral: Negative for confusion. Objective BP: ()/() Arterial Line BP: ()/() Physical Exam Constitutional: She is oriented to person, place, and time. Non-toxic appearanc e. She does not appear ill. No distress. HENT: Head: Normocephalic. Right Ear: External ear normal. Left Ear: External ear normal. Nose: Nose normal. Eyes: Conjunctivae are normal. Cardiovascular: Normal rate, regular rhythm, normal heart sounds and normal puls es. No murmur heard. Pulmonary/Chest: Effort normal and breath sounds normal. No respiratory distress . Abdominal: Soft. Normal appearance and bowel sounds are normal. Mild erythema surrounding Gtube site Musculoskeletal: Right lower leg: No edema. Left lower leg: No edema. Neurological: She is alert and oriented to person, place, and time. Skin: Skin is warm and dry. She is not diaphoretic. Psychiatric: Her behavior is normal. Mood, judgment and thought content normal. Laboratory Data (Most Recent over Past 3 Years) Lab 10/28/19 0639 11/01/19 0347 11/02/19 0450 WBC 5.0 3.5* 7.7 HGB 8.9* 9.1* 10.6* HCT 27.7* 28.6* 32.4* MCV 74.9* 74.6* 74.6* PLT 250 212 279 Lab 11/01/19 0347 11/02/19 0450 11/02/19 0748 NA 138 136 136 K 3.9 5.8* 4.9 CL 100 100 100 BICARBONATE 31* 29 28 GLUCOSE 95 81 130 BUN 6 16 16 CREATININE 0.50 0.52 0.61 Lab 09/28/19 0534 LIPASE 140* Lab 05/10/18 0736 HGBA1C 4.9 Lab 09/29/19 0826 TROPONINT <0.01 Lab 10/01/19 0322 11/01/19 0347 11/02/19 0450 NEUTOPHILPCT 64 < > 43 46 LYMPHOPCT 16 < > 36 39 MONOPCT 10 < > 9 8 EOSPCT 9 -- 11 7 < > = values in this interval not displayed. Lab 09/30/19 0331 10/01/19 0322 10/28/19 0639 PROT 5.5* 6.2* 5.2* ALBUMIN 3.5 3.9 2.9* AST 12 18 25 ALT 7 10 14 TBILI 0.4 0.4 0.9 ALKPHOS 69 73 205* Lab 09/27/19 1900 INR 1.07 Assessment & Plan Ms. Claude Diaz is a 40 y.o. female with a past medical history of Felipe- en-Y gastric bypass surgery performed in 2008, chronic G tube s/p recent replace ment at [facility] 2 weeks ago, chronic parenteral nutrition, chronic abdom inal pain, gastroparesis and placement of G-tube and J-tubes, and seizure disor terrence. She presented with a chief complaint of bloody output from her g-tube #Bleeding from Gtube #History of Felipe-en-Y gastric bypass surgery #Gastroparesis and placement of G-tube and J-tubes #Chronic parenteral nutrition -History of Felipe-en-Y gastric bypass surgery performed in 2008 -Chronic G tube s/p recent replacement at [facility] on 10/25/20 -Pt reports bleeding from gtube that began yesterday -Mild erythema noted around Gtube site - patient states this is consistent with baseline appearance -Currently hemodynamically stable -H/H: .1 -Surgery consulted - appreciate recs -CT abdomen/pelvis ordered -Will consult GI in AM #Protein C & S deficiency -POA -C/w home enoxaparin #Chronic abdominal pain -POA -Patient refused all oral pain medications and IV tylenol - threatened to leave AMA if she didn't receive IV pain medication. One time morphine ordered -Oral and IV tylenol ordered #GERD -POA -C/w home protonix #Depression -POA -C/w home fluoxetine #Asthma -POA -Not currently in exacerbation -C/w albuterol PRN DVT Prophylaxis: Lovenox GI Prophylaxis: Protonix Disposition: Will admit to inpatient status as she meets the clinical criteria a nd is expected to stay for >2 midnights based on the current severity of the disease Code Status: Full Code The patient will be discussed with Stella Palmer DO who agrees with the assessm ent and plan as noted above. Signature: Migdalia Monson DO Date/Time: December 05, 2020 9:59 PM Associated attestation - Stella Palmer DO - 12/06/2020 7:30 PM EST 40 year old female presenting with complicated past medical history of felipe en-y gastric bypass surgery, s/p reversal and chronic J tube with G tube recent rep lacement at [facility] with dark/black blood in ostomy bag with acute on ch ronic abdominal pain. She also admits to emesis with small dark blood clots as i n her ostomy bag. We will plan to consult surgery and GI services and IR. She ma y have a gastric ulcer that needs to be addressed, however given stable h/h we w ill c/w lovenox for protein c and s deficiency, if h/h begins to drop or she bec omes hemodynamically unstable will consider stopping AC at that time. CT a/p mariely reciated to further investigate abdominal discomfort, although this appears cosmetic maker solomon in nature. Will attempt to reconcile her medications with pharmacy. Attending Addendum: I personally interviewed, examined, and completely evaluated the patient and agr ee with the clinical findings and have discussed the plan for Claude rodarte with the resident. I have reviewed their note and agree with the findings and plan as documented for Claude Diaz. Overall amount of data reviewed, lev el of risk, complexity and medical decision making is: moderate Stella Palmer DO Department of Medicine 12/06/2020 7:30 PM documented in this encounter Consult Notes * Westley Angulo, PharmD - 12/08/2020 12:40 PM EST Associated Order(s): IP CONSULT TO PHARMACY Pharmacy Inpatient Medication History Review Prior to Admission Medications Prescriptions Last Dose Informant Patient Reported? Taking? Diclofenac Sodium 1 % External Gel (VOLTAREN) Pharmacy Yes Yes Sig: Apply 2 g topically to painful right hip twice a day. Enoxaparin Sodium 100 MG/ML Subcutaneous Solution (LOVENOX) Pharmacy Yes Yes Sig: Inject 100 mg into the skin Two Times Daily Gvoke HypoPen 2-Pack 1 MG/0.2ML Subcutaneous Solution Auto-injector (Glucagon) Pharmacy Yes Yes Sig: Inject 1 mg into the skin daily as needed Heparin Lock Flush 10 UNIT/ML Intravenous Solution Pharmacy Yes Yes Sig: Inject 50 Units into the vein after each saline flush. [facility]. Devices (DURABLE MEDICAL EQUIPMENT SEE SIG) XX [place] No No Sig: Use as directed. Syd-Chaves button gastrostomy tube 6.5 cm length. [facility]. Devices (DURABLE MEDICAL EQUIPMENT SEE SIG) XX [place] No No Sig: Use as directed. Enteral feeds: Vital AF 1.2 calorie , 5 bottles per day. ( 150 per month) [facility]. Devices (DURABLE MEDICAL EQUIPMENT SEE SIG) XX [place] No No Sig: Use as directed. Enteral Feeds: Vital AF 1.2 calorie, 5 bottles per day(150 /month). With 5 months of refills. [facility]. Devices (DURABLE MEDICAL EQUIPMENT SEE SIG) XX [place] No No Sig: Use as directed. [employer] Peptide 1.5 Tube Feed 2.84 bottles a day or 923 ml a day. (3 bottles a day , 90 bottles a month, with 5 refills) [facility]. Devices (DURABLE MEDICAL EQUIPMENT SEE SIG) XX [place] No No Sig: Use as directed. AMT mini one 20 fr. 5 cm #[id number] [facility]. Devices (DURABLE MEDICAL EQUIPMENT SEE SIG) XX [place] No No Sig: Use as directed. Please draw the following labs weekly: CMP, Mg, Phos, CBC and diff, prealbumin. And a monthly triglyceride. Thank you. Nystatin [id number] UNIT/GM External Cream (MYCOSTATIN) Pharmacy Yes Yes Sig: APPLY CREAM TOPICALLY TWICE DAILY Note (12/08/2020): Patient uses as needed. Last filled 11-14-20 for 30 days. Ondansetron HCl 4 MG Oral Tablet (ZOFRAN) Pharmacy Yes Yes Sig: Take 4 mg by mouth daily Note (12/08/2020): Patient uses as needed between injections. Ondansetron HCl 40 MG/20ML Injection Solution (ZOFRAN) Pharmacy Yes Yes Sig: Inject 4 mg into the vein every 8 (eight) hours Pantoprazole Sodium 40 MG Intravenous Solution Reconstituted (PROTONIX) Pharmac y Yes Yes Sig: Inject 40 mg into the vein every 12 (twelve) hours Sodium Chloride Flush 0.9 % Intravenous Solution Pharmacy Yes Yes Sig: Inject 10 mLs into the vein before and after each medication. Zolpidem Tartrate 10 MG Oral Tablet (AMBIEN) Pharmacy Yes Yes Sig: Take 10 mg by mouth nightly albuterol (PROVENTIL HFA;VENTOLIN HFA) 108 (90 Base) MCG/ACT inhaler Self Yes Y es Sig: Inhale 2 puffs into the lungs every 6 (six) hours as needed Note (12/08/2020): Can not confirm last fill. diphenhydrAMINE HCl 50 MG/ML Injection Solution (BENADRYL) Pharmacy Yes Yes Si mg by Given by IV route every 12 (twelve) hours fluoxetine (PROZAC) 20 MG capsule Pharmacy Yes Yes Sig: Take 20 mg by mouth daily hydrOXYzine (ATARAX) 25 MG tablet Pharmacy Yes Yes Sig: Take 25 mg by mouth every 6 (six) hours as needed for Itching oxyCODONE HCl 100 MG/5ML Oral Concentrate (ROXICODONE INTENSOL) Pharmacy Yes Ye s Sig: Take 1.5 to 2 mls by mouth or under the tongue every 4 hours as needed for pain. Max daily dose of 12 mls. sucralfate (CARAFATE) 1 GM/10ML suspension Self Yes Yes Sig: Take 1 g by mouth Four times daily as needed Note (12/08/2020): Can not confirm last fill of this medication. Facility-Administered Medications: None The following medications have been added:heparin, diclofenac and gvoke The following medications have been removed:ertapenem and infuvite. The following medications have been modified:zolpidem, sucralfate, sodium flush, pantoprazole, oxycodone, ondansetron tab, ondansetron inj, nystatin, hydroxyzin e, lovenox, benadryl and albuterol The patient takes the following medications differently than prescribed: Medication History Source: [facility] - [place], [place] - [facility] [facility] [address] [facility] [address] [facility] [address] [facility] [address] - [place], [place] - [address] [facility] [address] [facility] - [place] [address] [address] [facility] - [place], [place] - [address] [facility] [address] The above prior to admission medications have been compared to current inpatient orders. Discrepancies: Patient was very nice and knew her meds very well. She states she uses sucralfate and albuterol, but can not confirm last fill of either of those meds. She uses 2mls every 4 hours of the oxycodone. Medication history was completed based on information available during this krystle ent encounter, the list above may not be all inclusive. Thank you, Westley Angulo Pharm.D., BCPS * Fariha Connor NP - 12/08/2020 10:30 AM EST Associated Order(s): IP CONSULT TO INPATIENT WOUND/OSTOMY; [facility] Initial Assessment for Skin & Wound Care Consulted to evaluate for: Ulceration around j tube site Patient is a 40 y.o. year old female admitted on 12/06/2020 for Bleeding from g astrostomy tube site [K94.21]. Past Medical History: Diagnosis Date Acute pancreatitis 10/14/2009 Has had multiple episodes. No clear etiology. Allergy, unspecified not elsewhere classified Anxiety Asthma childhood Blood transfusion without reported diagnosis ALERGIC ITCHING, TAKES BENADRYL PRIOR/ LAST BLOOD TRANSFUSSION 02/2019 Chronic back pain Depression Diabetes mellitus Prior to gastric bypass but no longer GERD (gastroesophageal reflux disease) H/O gastric bypass Hx of blood clots RIGHT NECK Low back pain Spinal Fusion Malabsorption IV hydration at home MRSA (methicillin resistant staph aureus) culture positive 2016 leg wound, and couple times after that Normocytic anemia 08/03/2018 PE (pulmonary thromboembolism) septic and additional in July 2020 Pernicious anemia PICC (peripherally inserted central catheter) in place SBO (small bowel obstruction) VRE (vancomycin-resistant Enterococci) Past Surgical History: Procedure Laterality Date lumbar decompression 08/2013 with spacers ABDOMINAL SURGERY BACK SURGERY CHOLECYSTECTOMY COLONOSCOPY 01/03/2017 normal to TI with biopsies GASTROPLASTY 10/03/2009 felipe-en-Y GASTROSTOMY TUBE PLACEMENT HYSTERECTOMY 2011 jejunostomy MEDIPORT INSERTION, SINGLE MEDIPORT REMOVAL ID COLONOSCOPY FLX DX W/COLLJ SPEC WHEN PFRMD N/A 04/06/2019 Procedure: COLONOSCOPY, FLEXIBLE, PROXIMAL TO SPLENIC FLEXURE DX, W/WO SPECIMEN S/COLON DECOMP (SEP PROC); Surgeon: Mateus Bergman MD; Location: OR [facility]; Service: Endoscopy; Laterality: N/A; ID COLONOSCOPY W/BIOPSY SINGLE/MULTIPLE N/A 04/06/2019 Procedure: COLONOSCOPY, FLEXIBLE, PROXIMAL TO SPLENIC FLEXURE W/BX, SINGLE/MULT IPLE; Surgeon: Mateus Bergman MD; Location: OR [facility]; Service: Endoscopy; Laterality: N/A; ID EGD TRANSORAL CONTROL BLEEDING ANY METHOD N/A 10/17/2018 Procedure: UPPER GI ENDOSCOPY W/CONTROL, BLEEDING, ANY METHOD; Surgeon: Uche Jenkins MD; Location: OR ; Service: Endoscopy; Laterality: N/A; ID EGD TRANSORAL CONTROL BLEEDING ANY METHOD N/A 09/27/2019 Procedure: UPPER GI ENDOSCOPY with injection of epinephrine and clip applicatio n; Surgeon: Dhara Torres MD; Location: OR ; Service: Endoscopy; Late rality: N/A; ID ENDOSCOPY UPPER SMALL INTESTINE N/A 08/12/2018 Procedure: SMALL INTESTINAL ENDO/ENTEROSCOPY, > 2ND PORTION DUODENUM, NOT W/ILEUM DX W/WO SPECIMEN (SEP PROC); Surgeon: Mateus Bergman MD; Location: OR ENDO; Service: Endoscopy; Laterality: N/A; ID ENDOSCOPY UPPER SMALL INTESTINE W/BIOPSY N/A 08/12/2018 Procedure: SMALL INTESTINAL ENDO/ENTEROSCOPY, > 2ND PORTION DUODENUM, NOT W/ILEUM W/BX, SINGLE/MULTIPLE; Surgeon: Mateus Bergman MD; Location: OR ENDO; Service: Endoscopy; Laterality: N/A; ID ESOPHAGOGASTRODUODENOSCOPY SUBMUCOSAL INJECTION N/A 08/12/2018 Procedure: UPPER GI ENDOSCOPY W/DIRECTED SUBMUCOSAL INJECTION(S), ANY SUBSTANCE ; Surgeon: Matesu Bergman MD; Location: OR ENDO; Service: Endoscopy; La terality: N/A; ID ESOPHAGOGASTRODUODENOSCOPY TRANSORAL DIAGNOSTIC N/A 03/09/2018 Procedure: UPPER GI ENDOSCOPY with possible biopsy; Surgeon: Ramakrishna Mcgovern MD; Location: OR ENDO; Service: Endoscopy; Laterality: N/A; ID INSERT GASTROSTOMY TUBE PERCUTANEOUS N/A 08/03/2018 Procedure: INSERTION GASTROSTOMY TUBE, PERCUTANEOUS, UNDER FLUOROSCOPIC GUIDANC E INCLUDING CONTRAST; Surgeon: Jose Enrique Agustin MD; Location: OR ENDO; Service: Endoscopy; Laterality: N/A; ID LAP,JEJUNOSTOMY N/A 09/01/2019 Procedure: LAPAROSCOPY, SURGICAL; JEJUNOSTOMY; Surgeon: Ramakrishna Mcgovern MD; Location: OR [facility]; Service: General; Laterality: N/A; ID LAP,SURG,ENTERECTOMY,RESECT & ANAST N/A 09/02/2018 Procedure: DAIGNOSTIC LAPAROSCOPY WITH BIOPOSY, REDUCTION OF SMALL BOWEL VOLVU MARTHA, CLOSURE OF GASTROSTOMY, SMALL BOWEL RESECTION AND PUSH ENTEROSCOPY; Surgeo n: Ramakrishna Mcgovern MD; Location: OR [facility]; Service: General; Laterality: N/A; ID REVISION GASTROPLASTY,OBESITY, NON-TAM RESTRICT DEVICE N/A 09/01/2019 Procedure: Laparoscopic REVISION, GASTRIC RESTRICTIVE PROCedure and laparoscopi c jejunostomy,, upper endoscopy; Surgeon: Ramakrishna Mcgovern MD; Location: OR [facility] ; Service: General; Laterality: N/A; STOMACH SURGERY 2016 pt states "resection" TONSILLECTOMY TUBAL LIGATION UPPER GASTROINTESTINAL ENDOSCOPY 01/03/2017 no obvious abnl to mid-jejunum, RNY anatomy noted Patient is alert, oriented and good historian Comments : seen on 5A Wound History: Per Epic, patient is a 40 year old female with past medical histo ry as above currently admitted for bleeding from gastrostomy tube site. Patient states irritation and pain associated with skin around jtube site has been an is sarai for approximately 1 year. She states she has tried multiple different treatm ents without good or long lasting effect. At one point re-siting the tube was co nsidered, but patient has deferred that option at this time. Ghulam Scale Sensory Perceptions: No impairment Moisture: Rarely moist Activity: Walks occasionally Mobility: No limitation Nutrition: Adequate Friction and Shear: No apparent problem Ghulam Scale Score: 21 Support Surface: Pressure redistribution mattress (standard) Per spar finisher Current Support Surface: Accumax Objective: Vitals: 12/07/20 1916 12/08/20 0132 12/08/20 0544 12/08/20 0731 BP: 108/64 122/68 115/56 113/73 Pulse: 98 83 90 88 Resp: Temp: 36.5 C (97.7 F) 36.6 C (97.9 F) 36.7 C (98.1 F) 36 .2 C (97.2 F) SpO2: 97% 99% 99% 99% Lab Results Component Value Date WBC 4.6 12/08/2020 HGB 11.0 (L) 12/08/2020 HCT 33.1 (L) 12/08/2020 MCV 85.9 12/08/2020 PLT 273 12/08/2020 Lab Results Component Value Date GLUCOSE 125 12/08/2020 Lab Results Component Value Date ALBUMIN 4.1 12/07/2020 Lab Results Component Value Date HGBA1C 4.9 05/10/2018 No results found for: CRP Lab Results Component Value Date ESR 18 10/28/2019 J tube site, left abdomen: Skin is red, erythematous,without satelite lesions, t vargas to touch. Patient denies pruritis. No associated odor or drainage noted. N o leaking noted at site currently. Periwound area benign. Nutrition: Body mass index is 28.57 kg/m. Diet: Diet Adult; NPO; Ice Chips, PO Meds Assessment: Skin irritation around jtube site left abdomen, POA, related to jtube leak Plan: Wound Ostomy Care Orders (From admission, onward) Wound Ostomy Order Comments: Wound Care jtube site: Cleanse with NS, pat dry. Apply light dusting o f stoma powder, dab with skin prep, allow to dry at least 30 seconds. Apply duod erm signal cut to fit around site. Change q2-3 days and prn. Nutritional therapy, for appropriate calories/protein for wound healing. Will sign off please re-consult as needed. Fariha Connor NP 12/08/2020 10:45 AM * Jose Enrique Agustin MD - 12/06/2020 2:41 PM EST Associated Order(s): IP CONSULT TO GI Gastroenterology Consult Note Reason for consult: bleeding from J tube Physician requesting consult: Stella Palmer DO HISTORY History of Presenting Illness Ms. Claude Diaz is a 40 y.o. female patient with a past medical history as listed below, including RYGB in 2008 complicated by marginal ulcers, gastropa resis, TPN dependent (after several revisions on tube feedings), who is seen in consultation for abdominal pain, nausea and bloody output from feeding tube. The patient was seen and examined at bedside. She had a sudden onset of worsenin g abdominal pain in her right sudhakar-abdomen yesterday. Pain is sharp/crampy in qu ality, constant, non-radiating. No aggravating or alleviating factors reported. Accompanied by nausea and bloody contents from feeding tube. She takes anticoagu lation for Protein S deficiency, last dose yesterday. No other NSAID use. She h ad a jejunostomy tube and replaced gastrostomy tube about a month ago at [place], but has not used them for feeding, only for venting. She follows up with [facility] Method[facility] from [facility] (Dr. Bergman). Previous Endoscopies: As per above Past Medical & Surgical History Past Medical History: Diagnosis Date Acute pancreatitis 10/14/2009 Has had multiple episodes. No clear etiology. Allergy, unspecified not elsewhere classified Anxiety Asthma childhood Blood transfusion without reported diagnosis ALERGIC ITCHING, TAKES BENADRYL PRIOR/ LAST BLOOD TRANSFUSSION 02/2019 Chronic back pain Depression Diabetes mellitus Prior to gastric bypass but no longer GERD (gastroesophageal reflux disease) H/O gastric bypass Hx of blood clots RIGHT NECK Low back pain Spinal Fusion Malabsorption IV hydration at home MRSA (methicillin resistant staph aureus) culture positive 2016 leg wound, and couple times after that Normocytic anemia 08/03/2018 PE (pulmonary thromboembolism) septic and additional in July 2020 Pernicious anemia PICC (peripherally inserted central catheter) in place SBO (small bowel obstruction) VRE (vancomycin-resistant Enterococci) Past Surgical History: Procedure Laterality Date lumbar decompression 08/2013 with spacers ABDOMINAL SURGERY BACK SURGERY CHOLECYSTECTOMY COLONOSCOPY 01/03/2017 normal to TI with biopsies GASTROPLASTY 10/03/2009 felipe-en-Y GASTROSTOMY TUBE PLACEMENT HYSTERECTOMY 2011 jejunostomy MEDIPORT INSERTION, SINGLE MEDIPORT REMOVAL ID COLONOSCOPY FLX DX W/COLLJ SPEC WHEN PFRMD N/A 04/06/2019 Procedure: COLONOSCOPY, FLEXIBLE, PROXIMAL TO SPLENIC FLEXURE DX, W/WO SPECIMEN S/COLON DECOMP (SEP PROC); Surgeon: Mateus Bergman MD; Location: OR [facility]; Service: Endoscopy; Laterality: N/A; ID COLONOSCOPY W/BIOPSY SINGLE/MULTIPLE N/A 04/06/2019 Procedure: COLONOSCOPY, FLEXIBLE, PROXIMAL TO SPLENIC FLEXURE W/BX, SINGLE/MULT IPLE; Surgeon: Mateus Bergman MD; Location: OR [facility]; Service: Endoscopy; Laterality: N/A; ID EGD TRANSORAL CONTROL BLEEDING ANY METHOD N/A 10/17/2018 Procedure: UPPER GI ENDOSCOPY W/CONTROL, BLEEDING, ANY METHOD; Surgeon: Uche Jenkins MD; Location: OR ; Service: Endoscopy; Laterality: N/A; ID EGD TRANSORAL CONTROL BLEEDING ANY METHOD N/A 09/27/2019 Procedure: UPPER GI ENDOSCOPY with injection of epinephrine and clip applicatio n; Surgeon: Dhara Torres MD; Location: OR ; Service: Endoscopy; Late rality: N/A; ID ENDOSCOPY UPPER SMALL INTESTINE N/A 08/12/2018 Procedure: SMALL INTESTINAL ENDO/ENTEROSCOPY, > 2ND PORTION DUODENUM, NOT W/ILEUM DX W/WO SPECIMEN (SEP PROC); Surgeon: Mateus Bergman MD; Location: OR ENDO; Service: Endoscopy; Laterality: N/A; ID ENDOSCOPY UPPER SMALL INTESTINE W/BIOPSY N/A 08/12/2018 Procedure: SMALL INTESTINAL ENDO/ENTEROSCOPY, > 2ND PORTION DUODENUM, NOT W/ILEUM W/BX, SINGLE/MULTIPLE; Surgeon: Mateus Bergman MD; Location: OR ENDO; Service: Endoscopy; Laterality: N/A; ID ESOPHAGOGASTRODUODENOSCOPY SUBMUCOSAL INJECTION N/A 08/12/2018 Procedure: UPPER GI ENDOSCOPY W/DIRECTED SUBMUCOSAL INJECTION(S), ANY SUBSTANCE ; Surgeon: Mateus Bergman MD; Location: OR ENDO; Service: Endoscopy; La terality: N/A; ID ESOPHAGOGASTRODUODENOSCOPY TRANSORAL DIAGNOSTIC N/A 03/09/2018 Procedure: UPPER GI ENDOSCOPY with possible biopsy; Surgeon: Ramakrishna Mcgovern MD; Location: OR ENDO; Service: Endoscopy; Laterality: N/A; ID INSERT GASTROSTOMY TUBE PERCUTANEOUS N/A 08/03/2018 Procedure: INSERTION GASTROSTOMY TUBE, PERCUTANEOUS, UNDER FLUOROSCOPIC GUIDANC E INCLUDING CONTRAST; Surgeon: Jose Enrique Agustin MD; Location: OR ENDO; Service: Endoscopy; Laterality: N/A; ID LAP,JEJUNOSTOMY N/A 09/01/2019 Procedure: LAPAROSCOPY, SURGICAL; JEJUNOSTOMY; Surgeon: Ramakrishna Mcgovern MD; Location: [facility]; Service: General; Laterality: N/A; ID LAP,SURG,ENTERECTOMY,RESECT & ANAST N/A 09/02/2018 Procedure: DAIGNOSTIC LAPAROSCOPY WITH BIOPOSY, REDUCTION OF SMALL BOWEL VOLVU MARTHA, CLOSURE OF GASTROSTOMY, SMALL BOWEL RESECTION AND PUSH ENTEROSCOPY; Surgeo n: Ramakrishna Mcgovern MD; Location: OR [facility]; Service: General; Laterality: N/A; ID REVISION GASTROPLASTY,OBESITY, NON-TAM RESTRICT DEVICE N/A 09/01/2019 Procedure: Laparoscopic REVISION, GASTRIC RESTRICTIVE PROCedure and laparoscopi c jejunostomy,, upper endoscopy; Surgeon: Ramakrishna Mcgovern MD; Location: [facility] ; Service: General; Laterality: N/A; STOMACH SURGERY 2016 pt states "resection" TONSILLECTOMY TUBAL LIGATION UPPER GASTROINTESTINAL ENDOSCOPY 01/03/2017 no obvious abnl to mid-jejunum, RNY anatomy noted Allergies Allergen Reactions Desyrel [Trazodone] Anaphylaxis and Other (See Comments) Pt states she cannot swallow after taking this (throat swells) AND SOB Levaquin [Levofloxacin] Shortness Of Breath Unknown Reaction Nsaids Other (See Comments) DUE TO GASTRIC BYPASS AND CHRONIC BLEED Sulfa Antibiotics Shortness Of Breath and Rash Tomato Anaphylaxis Reaction: ANAPHYLAXI Home Medications Medication Sig albuterol (PROVENTIL HFA;VENTOLIN HFA) 108 (90 Base) MCG/ACT inhaler Inhale 2 pu ffs into the lungs every 6 (six) hours as needed diphenhydrAMINE HCl 50 MG/ML Injection Solution (BENADRYL) 50 mg by Given by IV route nightly Enoxaparin Sodium 80 MG/0.8ML Subcutaneous Solution (LOVENOX) fluoxetine (PROZAC) 20 MG capsule Take 20 mg by mouth daily hydrOXYzine (ATARAX) 25 MG tablet Take 25 mg by mouth every 6 (six) hours as nee ded Nystatin 944702 UNIT/GM External Cream (MYCOSTATIN) APPLY CREAM TOPICALLY TWICE DAILY Ondansetron 4 MG Oral Tablet Disintegrating (ZOFRAN-ODT) Take 1 tablet by mouth every 8 (eight) hours as needed for Nausea Ondansetron HCl 40 MG/20ML Injection Solution (ZOFRAN) Inject 1 mL into the vein daily Oxycodone HCl 10 MG TABS Take 40 mg by mouth every 4 (four) hours as needed Pantoprazole Sodium 40 MG Intravenous Solution Reconstituted (PROTONIX) Inject 4 0 mg into the vein daily sucralfate (CARAFATE) 1 GM/10ML suspension Take 1 g by mouth Four times daily as needed Zolpidem Tartrate 5 MG Oral Tablet (AMBIEN) Take 12.5 mg by mouth nightly as nee ded for Sleep Infuvite Adult Intravenous Injectable Inject 1 mL into the vein daily Misc. Devices (DURABLE MEDICAL EQUIPMENT SEE SIG) XX MISC Use as directed. Syd-K ey button gastrostomy tube 6.5 cm length. Misc. Devices (DURABLE MEDICAL EQUIPMENT SEE SIG) XX MISC Use as directed. Enter al feeds: Vital AF 1.2 calorie , 5 bottles per day. (150 per month) Misc. Devices (DURABLE MEDICAL EQUIPMENT SEE SIG) XX MISC Use as directed. Enter al Feeds: Vital AF 1.2 calorie, 5 bottles per day(150/month). With 5 months of r efills. Mis. Devices (DURABLE MEDICAL EQUIPMENT SEE SIG) XX [place] Use as directed. Cait gimenez Peptide 1.5 Tube Feed 2.84 bottles a day or 923 ml a day. (3 bottles a day , 90 bottles a month, with 5 refills) [facility]. Devices (DURABLE MEDICAL EQUIPMENT SEE SIG) XX [place] Use as directed. FELIPE quiroz ini one 20 fr. 5 cm #[id number] Mis. Devices (DURABLE MEDICAL EQUIPMENT SEE SIG) XX [place] Use as directed. Pleas e draw the following labs weekly: CMP, Mg, Phos, CBC and diff, prealbumin. And a monthly triglyceride. Thank you. Sodium Chloride 0.9 % Intravenous Solution sodium chloride 0.9 % SOLN 50 mL with ertapenem 1 g SOLR 1,000 mg Inject 1,000 m g into the vein every 24 (twenty-four) hours [facility]. Devices (DURABLE MEDICAL EQUIPMENT SEE SIG) XX [place] Use as directed. Start Peptamen 1.5 via J-Tube. Advance 10 ml/hr q 8 hrs to goal rate of 55 ml/hr x 24 hr. To provide 1,980 kcals and 90 grams protein. Patient not taking: Use as directed. Reported on 11/29/2020 Medications at this time acetaminophen 1,000 mg Intravenous Once enoxaparin 80 mg Subcutaneous 2 times per day fat emulsion fish oil/plant based 14.5 mL/hr Intravenous Daily fluoxetine 20 mg Oral Daily pantoprazole 40 mg Intravenous BID acetaminophen (TYLENOL) tablet, albuterol, diphenhydrAMINE, morphine sulfate, zo lpidem TPN adult Social History She is . She reports that she has never smoked. She has never used smokel ess tobacco. She reports that she does not drink alcohol or use drugs. Family History family history includes Crohn's disease in her brother, maternal grandfather, ma ternal uncle, and mother; Diabetes in her maternal grandmother; Obesity in her m other. Strong family history of Crohn's Disease. No other GI malignancies/pathol ogies. Review of systems: All systems reviewed. Please see HPI for pertinent findings. A complete review o f systems was done, which was pertinent for what is listed above and in HPI.The remainder of the complete ROS is negative. The patient was asked to refer non-ga strointestinal and non-liver related complaints to the primary provider. PHYSICAL EXAMINATION Blood pressure 105/63, pulse 85, temperature 36 C (96.8 F), temperature source Oral, resp. rate 16, height 1.665 m (5' 5.55"), weight 79.2 kg (174 lb 9. 6 oz), SpO2 95 %, not currently . Constitutional: She is oriented to person, place, and time. HENT: Head: Normocephalic and atraumatic. Eyes: Pupils are equal, round, and julia ctive to light. No scleral icterus. Neck: Normal range of motion. Neck supple. No tracheal deviation present. Cardiovascular: Normal rate, normal heart sounds and intact distal pulses. Pulmonary/Chest: Effort normal and breath sounds normal. No stridor. No respirat ory distress. There are no wheezes. Abdominal: Bowel sounds are normal. She exhibits no distension and no mass. Ther e is no tenderness. There is no rebound and no guarding. + blood in feeding tube . Musculoskeletal: Normal range of motion. Neurological: She is alert and oriented to person, place, and time. Skin: Skin is warm. Psychiatric: She has a normal mood and affect. Behavior is normal. DATA REVIEW All relevant laboratory data, outside records and imaging that were available we re reviewed. Laboratory Data: Lab 10/01/19 0322 10/28/19 0639 11/01/19 0347 11/02/19 0450 12/06/20 0327 12/06/20 0920 HGB 8.7* 8.9* 9.1* 10.6* 10.8* 11.6 HCT 26.6* 27.7* 28.6* 32.4* 32.5* 35.9* MCV 77.8* 74.9* 74.6* 74.6* 85.6 85.4 PLT 296 250 212 279 280 323 WBC 7.0 5.0 3.5* 7.7 5.6 6.8 Lab 10/31/19 0411 11/01/19 0347 11/02/19 0450 11/02/19 0748 12/06/20 0327 12/06/20 0920 NA 141 138 136 136 141 -- K 3.8 3.9 5.8* 4.9 3.3* -- CL 102 100 100 100 108* -- BICARBONATE 29 31* 29 28 23 -- BUN 4* 6 16 16 7 -- CREATININE 0.51 0.50 0.52 0.61 0.62 0.69 Lab 05/11/19 0400 05/12/19 0358 05/31/19 0659 09/28/19 0534 09/29/19 0536 09/30/19 0331 10/01/19 0322 10/28/19 0639 PROT 5.0* 5.3* 5.5* 6.2* 5.6* 5.5* 6.2* 5.2* ALBUMIN 3.2* 3.4* 3.6 3.8 3.4* 3.5 3.9 2.9* ALT 11 12 30 9 8 7 10 14 AST 16 20 16 11 11 12 18 25 ALKPHOS 66 72 91 90 72 69 73 205* TBILI 1.2* 0.4 0.7 0.8 0.5 0.4 0.4 0.9 BILIDIR 0.2 <0.2 -- <0.2 <0.2 <0.2 <0.2 -- Lab 07/03/18 1850 05/31/19 0659 09/27/19 1900 09/28/19 0534 12/06/20 0920 LIPASE 104* -- -- -- 140* -- INR -- < > 1.02 1.07 -- 1.00 < > = values in this interval not displayed. Imaging and other investigations: CT Angio Abdomen/Pelvis 12/06/2020: FINDINGS: Tubes, catheters and devices: A gastric tube is present which appears to be in good position within the stomach. A 2nd small bowel tube is also identified on the study. Aorta: No aortic aneurysm. No aortic dissection. Celiac trunk and mesenteric arteries: No occlusion or significant stenosis. Renal arteries: No occlusion or significant stenosis. Right iliac arteries: No occlusion or significant stenosis. Left iliac arteries: No occlusion or significant stenosis. Liver: No mass. Gallbladder and bile ducts: The patient is status post cholecystectomy. Pancreas: Unremarkable. No mass. No ductal dilation. Spleen: The spleen is mildly prominent but unchanged from the prior study. Adrenal glands: Kidneys and ureters: Unremarkable. No solid mass. No hydronephrosis. Stomach and bowel: The patient is status post prior gastric surgery. Appendix: No evidence of appendicitis. Intraperitoneal space: Unremarkable. No free air. No significant fluid collection. Lymph nodes: Unremarkable. No enlarged lymph nodes. Urinary bladder: Unremarkable. No mass. Reproductive: Unremarkable as visualized. Bones/joints: No acute fracture. No dislocation. Soft tissues: Unremarkable. IMPRESSION: 1. No active extravasation noted. 2. Gastric in jejunostomy tubes in good position. 3. Stable splenomegaly. 4. Status post cholecystectomy and prior gastric surgery ASSESSMENT AND PLAN Ms. Claude Diaz is a 40 y.o. 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 Hem odynamically stable. Labs showed H/H 10.8/32 (no significant changes from baseli ne in 10/2019). CT angio did not reveal any active bleeding. At this time, we del l recommend IR consult for assessment/evaluation of feeding tube. Recommendations: - Keep patient NPO -Two wide bore IV lines. -Type and screen. - Monitor vital signs for hemodynamic instability (hypotension, tachycardia) - Protonix 40 mg IV BID - Monitor CBC and transfuse PRBC as indicated. - Goal hemoglobin > 7/21 - Avoid NSAIDs - IR Consult for management of recent feeding tube - If any signs of overt gastrointestinal bleeding, please notify GI fellow on ca ll STAT The patient was discussed with Dr. Agustin who agrees with the above assessment an d plan. Katey Borden MD 12/06/2020 2:41 PM I saw,examined and evaluated the patient personally. Discussed with the residen t/fellow and agree with the residents/fellows findings and plans as written, jodi ng with any supplemental dictated and/or attending documentation in the patient record by myself. Jose Enrique Agustin MD Division of GI Advanced Endoscopy * Miguel Soto MD - 12/06/2020 4:02 AM EST Associated Order(s): IP CONSULT TO GENERAL SURGERY --- INITIAL NOTE OF EVALUATION FOR GENERAL SURGERY OR SURGICAL SUBSPECIALTY CONSULTS --- December 06, 2020 4:02 AM REASON FOR CONSULT: Concern for acute GI hemorrhage in a complex bariatric patie nt SUMMARY OF HISTORY OF PRESENT ILLNESS: Ms. Diaz is a 40 year old female wh o presents with a two day history of maroon-colored liquidish output from her ga strostomy tube and increased abdominal pain, accompanied with nausea. She has a very complex bariatric surgical history beginning with a Felipe-en-Y gastric bypas s in [place] in 2008 complicated by marginal ulcers and gastroparesis leading to a reversal procedure with Dr. Mcgovern on 09/01/2019. She has had several revision s since and was dependent on tube feeding which she however did not tolerate eit her anymore; she is now TPN dependent. She has received care at [facility] in the past with Dr. Hernandez, where she underwent a repair of an internal herni a and replacement of gastrostomy tube on 10/25/2020. This was her most recent surg edwina. She has a jejunostomy tube in place as well as the recently replaced gastro stomy tube but has not used them for feeding, only for venting. She reports that in addition to her chronic abdominal discomfort and nausea she felt increasing pain two days ago. This was accompanied by output of two ostomy bags full of yadira let to maroon colored liquid, concerning for a gastrointestinal hemorrhage. This led to consultation of the General Surgery/Bariatric Service. REVIEW OF SYSTEMS: Negative except as mentioned above. PMH: Past Medical History: Diagnosis Date Acute pancreatitis 10/14/2009 Has had multiple episodes. No clear etiology. Allergy, unspecified not elsewhere classified Anxiety Asthma childhood Blood transfusion without reported diagnosis ALERGIC ITCHING, TAKES BENADRYL PRIOR/ LAST BLOOD TRANSFUSSION 02/2019 Chronic back pain Depression Diabetes mellitus Prior to gastric bypass but no longer GERD (gastroesophageal reflux disease) H/O gastric bypass Hx of blood clots RIGHT NECK Low back pain Spinal Fusion Malabsorption IV hydration at home MRSA (methicillin resistant staph aureus) culture positive 2016 leg wound, and couple times after that Normocytic anemia 08/03/2018 PE (pulmonary thromboembolism) septic and additional in July 2020 Pernicious anemia PICC (peripherally inserted central catheter) in place SBO (small bowel obstruction) VRE (vancomycin-resistant Enterococci) PSH: Past Surgical History: Procedure Laterality Date lumbar decompression 08/2013 with spacers ABDOMINAL SURGERY BACK SURGERY CHOLECYSTECTOMY COLONOSCOPY 01/03/2017 normal to TI with biopsies GASTROPLASTY 10/03/2009 felipe-en-Y GASTROSTOMY TUBE PLACEMENT HYSTERECTOMY 2011 jejunostomy MEDIPORT INSERTION, SINGLE MEDIPORT REMOVAL ID COLONOSCOPY FLX DX W/COLLJ SPEC WHEN PFRMD N/A 04/06/2019 Procedure: COLONOSCOPY, FLEXIBLE, PROXIMAL TO SPLENIC FLEXURE DX, W/WO SPECIMEN S/COLON DECOMP (SEP PROC); Surgeon: Mateus Bergman MD; Location: OR [facility]; Service: Endoscopy; Laterality: N/A; ID COLONOSCOPY W/BIOPSY SINGLE/MULTIPLE N/A 04/06/2019 Procedure: COLONOSCOPY, FLEXIBLE, PROXIMAL TO SPLENIC FLEXURE W/BX, SINGLE/MULT IPLE; Surgeon: Mateus Bergamn MD; Location: OR [facility]; Service: Endoscopy; Laterality: N/A; ID EGD TRANSORAL CONTROL BLEEDING ANY METHOD N/A 10/17/2018 Procedure: UPPER GI ENDOSCOPY W/CONTROL, BLEEDING, ANY METHOD; Surgeon: Uche Jenkins MD; Location: OR ; Service: Endoscopy; Laterality: N/A; ID EGD TRANSORAL CONTROL BLEEDING ANY METHOD N/A 09/27/2019 Procedure: UPPER GI ENDOSCOPY with injection of epinephrine and clip applicatio n; Surgeon: Dhara Torres MD; Location: OR ; Service: Endoscopy; Late rality: N/A; ID ENDOSCOPY UPPER SMALL INTESTINE N/A 08/12/2018 Procedure: SMALL INTESTINAL ENDO/ENTEROSCOPY, > 2ND PORTION DUODENUM, NOT W/ILEUM DX W/WO SPECIMEN (SEP PROC); Surgeon: Mateus Bergman MD; Location: OR [facility]; Service: Endoscopy; Laterality: N/A; ID ENDOSCOPY UPPER SMALL INTESTINE W/BIOPSY N/A 08/12/2018 Procedure: SMALL INTESTINAL ENDO/ENTEROSCOPY, > 2ND PORTION DUODENUM, NOT W/ILEUM W/BX, SINGLE/MULTIPLE; Surgeon: Mateus Bergman MD; Location: OR [facility]; Service: Endoscopy; Laterality: N/A; ID ESOPHAGOGASTRODUODENOSCOPY SUBMUCOSAL INJECTION N/A 08/12/2018 Procedure: UPPER GI ENDOSCOPY W/DIRECTED SUBMUCOSAL INJECTION(S), ANY SUBSTANCE ; Surgeon: Mateus Bergman MD; Location: OR ENDO; Service: Endoscopy; La terality: N/A; ID ESOPHAGOGASTRODUODENOSCOPY TRANSORAL DIAGNOSTIC N/A 03/09/2018 Procedure: UPPER GI ENDOSCOPY with possible biopsy; Surgeon: Ramakrishna Mcgovern MD; Location: OR ENDO; Service: Endoscopy; Laterality: N/A; ID INSERT GASTROSTOMY TUBE PERCUTANEOUS N/A 08/03/2018 Procedure: INSERTION GASTROSTOMY TUBE, PERCUTANEOUS, UNDER FLUOROSCOPIC GUIDANC E INCLUDING CONTRAST; Surgeon: Jose Enrique Agustin MD; Location: OR ENDO; Service: Endoscopy; Laterality: N/A; ID LAP,JEJUNOSTOMY N/A 09/01/2019 Procedure: LAPAROSCOPY, SURGICAL; JEJUNOSTOMY; Surgeon: Ramakrishna Mcgovern MD; Location: [facility]; Service: General; Laterality: N/A; ID LAP,SURG,ENTERECTOMY,RESECT & ANAST N/A 09/02/2018 Procedure: DAIGNOSTIC LAPAROSCOPY WITH BIOPOSY, REDUCTION OF SMALL BOWEL VOLVU MARTHA, CLOSURE OF GASTROSTOMY, SMALL BOWEL RESECTION AND PUSH ENTEROSCOPY; Surgeo n: Ramakrishna Mcgovern MD; Location: OR ; Service: General; Laterality: N/A; ID REVISION GASTROPLASTY,OBESITY, NON-TAM RESTRICT DEVICE N/A 09/01/2019 Procedure: Laparoscopic REVISION, GASTRIC RESTRICTIVE PROCedure and laparoscopi c jejunostomy,, upper endoscopy; Surgeon: Ramakrishna Mcgovern MD; Location: [facility] ; Service: General; Laterality: N/A; STOMACH SURGERY 2015 pt states "resection" TONSILLECTOMY TUBAL LIGATION UPPER GASTROINTESTINAL ENDOSCOPY 01/03/2017 no obvious abnl to mid-jejunum, RNY anatomy noted FH: Family History Problem Relation Age of Onset Crohn's disease Mother Obesity Mother Crohn's disease Brother Crohn's disease Maternal Uncle Crohn's disease Maternal Grandfather Diabetes Maternal Grandmother SH: Social History Socioeconomic History Marital status: Spouse name: Obi Diaz Number of children: 4 Years of education: Not on file Highest education level: Not on file Occupational History Not on file Social Needs Financial resource strain: Not on file Food insecurity Worry: Not on file Inability: Not on file Transportation needs Medical: Not on file Non-medical: Not on file Tobacco Use Smoking status: Never Smoker Smokeless tobacco: Never Used Substance and Sexual Activity Alcohol use: No Drug use: No Sexual activity: Yes Partners: Male control/protection: Surgical Lifestyle Physical activity Days per week: Not on file Minutes per session: Not on file Stress: Not on file Relationships Social connections Talks on phone: Not on file Gets together: Not on file Attends muslim service: Not on file Active member of club or organization: Not on file Attends meetings of clubs or organizations: Not on file Relationship status: Not on file Intimate partner violence Fear of current or ex partner: Not on file Emotionally abused: Not on file Physically abused: Not on file Forced sexual activity: Not on file Other Topics Concern Not on file Social History Narrative Hgt 5'7" Wgt 132 lb Right handed claustrophobic MEDS: No current facility-administered medications on file prior to encounter. Current Outpatient Medications on File Prior to Encounter Medication Sig Dispense Refill albuterol (PROVENTIL HFA;VENTOLIN HFA) 108 (90 Base) MCG/ACT inhaler Inha le 2 puffs into the lungs every 6 (six) hours as needed diphenhydrAMINE HCl 50 MG/ML Injection Solution (BENADRYL) 50 mg by Given by IV route nightly Enoxaparin Sodium 80 MG/0.8ML Subcutaneous Solution (LOVENOX) fluoxetine (PROZAC) 20 MG capsule Take 20 mg by mouth daily 3 hydrOXYzine (ATARAX) 25 MG tablet Take 25 mg by mouth every 6 (six) hours as needed 0 Nystatin 107041 UNIT/GM External Cream (MYCOSTATIN) APPLY CREAM TOPICALLY TWICE DAILY Ondansetron 4 MG Oral Tablet Disintegrating (ZOFRAN-ODT) Take 1 tablet by mouth every 8 (eight) hours as needed for Nausea 90 tablet 2 Ondansetron HCl 40 MG/20ML Injection Solution (ZOFRAN) Inject 1 mL into t he vein daily Oxycodone HCl 10 MG TABS Take 40 mg by mouth every 4 (four) hours as need ed 0 Pantoprazole Sodium 40 MG Intravenous Solution Reconstituted (PROTONIX) I nject 40 mg into the vein daily sucralfate (CARAFATE) 1 GM/10ML suspension Take 1 g by mouth Four times d aily as needed Zolpidem Tartrate 5 MG Oral Tablet (AMBIEN) Take 12.5 mg by mouth nightly as needed for Sleep Infuvite Adult Intravenous Injectable Inject 1 mL into the vein daily Misc. Devices (DURABLE MEDICAL EQUIPMENT SEE SIG) XX MISC Use as directed . Syd-Chaves button gastrostomy tube 6.5 cm length. 2 each 0 Misc. Devices (DURABLE MEDICAL EQUIPMENT SEE SIG) XX MISC Use as directed . Enteral feeds: Vital AF 1.2 calorie , 5 bottles per day. (150 per month) 1 eac h 0 Misc. Devices (DURABLE MEDICAL EQUIPMENT SEE SIG) XX MISC Use as directed . Enteral Feeds: Vital AF 1.2 calorie, 5 bottles per day(150/month). With 5 mahin hs of refills. 150 each 5 Misc. Devices (DURABLE MEDICAL EQUIPMENT SEE SIG) XX MISC Use as directed . [employer] Peptide 1.5 Tube Feed 2.84 bottles a day or 923 ml a day. (3 bottles a day , 90 bottles a month, with 5 refills) 90 each 5 Misc. Devices (DURABLE MEDICAL EQUIPMENT SEE SIG) XX MISC Use as directed . AMT mini one 20 fr. 5 cm #[id number] 1 each 0 Misc. Devices (DURABLE MEDICAL EQUIPMENT SEE SIG) XX MISC Use as directed . Please draw the following labs weekly: CMP, Mg, Phos, CBC and diff, prealbumin . And a monthly triglyceride. Thank you. 1 each 0 Sodium Chloride 0.9 % Intravenous Solution sodium chloride 0.9 % SOLN 50 mL with ertapenem 1 g SOLR 1,000 mg Inject 1,000 mg into the vein every 24 (twenty-four) hours [DISCONTINUED] Misc. Devices (DURABLE MEDICAL EQUIPMENT SEE SIG) XX MISC Use as directed. Start Peptamen 1.5 via J-Tube. Advance 10 ml/hr q 8 hrs to goal rate of 55 ml/hr x 24 hr. To provide 1,980 kcals and 90 grams protein. (Patient not taking: Use as directed. Reported on 11/29/2020) 1 each 0 Scheduled Meds: acetaminophen 1,000 mg Intravenous Once enoxaparin sodium 80 mg Subcutaneous BID fluoxetine 20 mg Oral Daily pantoprazole 40 mg Intravenous Daily Continuous Infusions: PRN Meds:.acetaminophen (TYLENOL) tablet, albuterol, zolpidem ALLERGIES: Allergies Allergen Reactions Desyrel [Trazodone] Anaphylaxis and Other (See Comments) Pt states she cannot swallow after taking this (throat swells) AND SOB Levaquin [Levofloxacin] Shortness Of Breath Unknown Reaction Nsaids Other (See Comments) DUE TO GASTRIC BYPASS AND CHRONIC BLEED Sulfa Antibiotics Shortness Of Breath and Rash Tomato Anaphylaxis Reaction: ANAPHYLAXI PHYSICAL EXAM: Temp: [36.6 C (97.9 F)] 36.6 C (97.9 F) Pulse: [91] 91 Resp: [18] 18 BP: (124)/(76) 124/76 SpO2: [97 %] 97 % O2 Therapy: Room air GENERAL APPEARANCE: The patient does appear in mild distress due to discomfort. HEAD, EYES, EARS, NOSE, THROAT: No scleral jaundice. CARDIOVASCULAR: Normal heart rate. PULM: Symmetric chest wall expansion and non-labored breathing appreciated. ABDOMINAL: The abdomen is soft, mildly distended, but non-tender. No rebound, gu arding, peritonitic signs. J tube with Donaldo button and gastrostomy tube with b ag that has maroon colored clear output. Surgical scars appreciated. GENITOURINARY: No tenderness at the costovertebral angles. ENDOCRINE: No struma, exophthalmus, myxedema. MUSCULOSKELETAL: All extremities are warm and well perfused. INTEGUMENTAL: No generalized rashes, erythemas. LYMPHATIC: No overt cervical lymphadenopathy. NEUROLOGICAL: The patient is grossly oriented to place, time, and self during th is examination. PSYCHIATRIC: Normal mood appreciated. VITALS: Temp: [36.6 C (97.9 F)] 36.6 C (97.9 F) Pulse: [91] 91 Resp: [18] 18 BP: (124)/(76) 124/76 SpO2: [97 %] 97 % O2 Therapy: Room air SpO2 Readings from Last 3 Encounters: 12/06/20 97% 02/10/20 99% 11/16/19 96% ASSESSMENT: Claude Diaz is a 40 y.o. female with a complex bariatric history followi ng a Felipe-en-Y gastric bypass in 2008 that was reversed in 2019, complicated by marginal ulcers, gastroparesis and a recent internal hernia, TPN dependent, who presents with acute onset maroon colored output from a venting gastrostomy tube concerning for an acute gastrointestinal hemorrhage. SUMMARIZED PLAN: -Please consult the gastrointestinal disease service for workup and management r ecommendations regarding the concern for an acute GI hemorrhage -Please obtain a CT angiography of the abdomen and pelvis to evaluate for a sour ce of bleeding -Bariatric Surgery will re-evaluate the patient in the AM. Thank you for the opportunity to participate in the care of Claude Diaz. This case was discussed with Attending Dr. Ashton. Associated attestation - Nette Ashton MD - 12/06/2020 7:39 AM EST Discussed with the resident and agree with residents findings as documented in t he resident's note. 40 yo female with complex surgical history including Felipe-en-y gastric bypass in 2008 complicated by marginal ulcers, gastroparesis and severe protein-calorie m alnutrition requiring G and J-tube placement as well as TPN dependency. She even tually underwent reversal in [address] Mcgovern however this failed to improve her nutritional status and was further complicated again by internal hernia need ing recent internal hernia repair and replacement of a gastrostomy tube by Dr. Martha antunez at [facility] on 10/25/2020. She has been using both her G and J tube s for venting only and feeding parenterally. She presents to [facility] with two days of acute on chronic abdominal pain associa romario with bleeding from her gastrostomy tube. She was transferred from [facility] overnight due to [place] being on diversion and admitted to a medicine [facility]. On arrival she was found to be hemodynamically stable with Hgb 10.8. CTA personally reviewed. G and Jtubes in good position without evidence for active e xtravasation or any other acute pathology. Recommend stopping therapeutic anticoagulation. Order PT/INR, PTT. Repeat CBC in 6 hours. Trend labs and transfuse as needed if signs for ongoing active bleed. IV protonix bid. Continue G tube to drainage bag, flush with sterile saline ever y shift to keep patency. Also recommend GI consult to evaluate the need for uppe r endoscopy this admission. Surgery team will follow. Please page or call with any further questions or conc erns. NETTE ASHTON MD Bariatric and Minimally Invasive Surgery [facility] [address], Physician's Office [facility], [address] [place], [place] [address] Pager: [phone] documented in this encounter Miscellaneous Notes * Plan of Care - Laine Jain GN - 12/08/2020 12:10 AM EST Problem: Hemodynamic Status Goal: Patient will remain hemodynamically stable Description: Patient's vital signs, oxygenation, and labs will be monitored and deviations addressed. Outcome: Progressing Problem: Pain Goal: Pain is controlled to patient's desired goal Outcome: Progressing Problem: INJURY, RISK FOR Goal: Patient will not be injured from a fall during hospitalization Outcome: Progressing Problem: Knowledge Deficit Goal: Patient requires education regarding causes of high risk injury from a fal l Outcome: Progressing Goal: Patient's family requires education regarding causes of high risk injury f rom a fall Outcome: Progressing * Significant Event - Angeline Stubbs RN - 12/07/2020 10:07 AM EST Patient with witness seizure like activity yesterday. Patient placed on seizure precautions and high fall risk. Patient now denying seizure like activity and re fusing bed/chair alarm, seizure pads and help with ambulating. Dr. Palmer made aware. No new orders. * Plan of Care - Laine Jain GN - 12/07/2020 2:18 AM EST Problem: Hemodynamic Status Goal: Patient will remain hemodynamically stable Description: Patient's vital signs, oxygenation, and labs will be monitored and deviations addressed. Outcome: Progressing Problem: Pain Goal: Pain is controlled to patient's desired goal Outcome: Progressing * Significant Event - Thalia Escalera MD - 12/06/2020 3:49 PM EST Patient notified bedside nurse that she has an active MOLST and her code status is DNR/DNI. Reviewed her chart and found most recent MOLST form indicating DNR/D NI on 04/2019. Discussed with patient at beside and she confirmed her code statu s. Filled out paperwork and updated code status in chart. Thalia Escalera MD PGY-3 | Internal Medicine * Plan of Care - Liza Fajardo RN - 12/06/2020 3:01 AM EST Problem: Hemodynamic Status Goal: Patient will remain hemodynamically stable Description: Patient's vital signs, oxygenation, and labs will be monitored and deviations addressed. Outcome: Progressing Problem: Pain Goal: Pain is controlled to patient's desired goal Outcome: Progressing documented in this encounter Plan of Treatment Order Schedule Name Type Priority Associated Diag noses AM Draw for 3 Occurrences starting 12/07 until 12/09/2020, 2 completed Magnesium Level Lab Routine AM Draw for 3 Occurrences starting 12/07 until 12/09/2020, 2 completed Phosphorus Level Lab Routine One Time Imaging Routine for 1 Occurrenc es starting 12/06/2020 until 12/06/2020 IR G-Tube Study Imaging Routine AM Draw for 30 Days starting 12/08/2020 until 01/06/2021, 1 completed CBC and Differential Lab Routine AM Draw for 3 Occurrences starting 12/08 until 12/10/2020, 1 completed Basic Metabolic Panel Lab Routine AM Draw for 3 Occurrences starting 12/08 until 12/10/2020 Basic Metabolic Panel Lab Routine One Time Imaging Routine for 1 Occurrenc es starting 12/07/2020 until 12/07/2020 NM GI Blood Loss Imaging Imaging Routine Order Schedule Name Type Priority Associated Diag noses Ordered: 12/08/2020 Referral to home health Outpatient Routine On tot al parenteral Referral nutrition (TPN) Ordered: 12/08/2020 Referral to General Outpatient Routine Malfunctio n of Surgery Referral jejunostomy tube Health Maintenance Due Date Last Done Comments MMR Vaccines (1 of - 01/25/1980 Standard series) Varicella Vaccines (1 [...] L ot Implanted Type Area Manufactur er [id number] / / [id number] Dc- [place]- 9fr 2lumen - [id number] Right: Chest B ROSA M Implanted: Qty: 1 on 04/20/2014 by Sterling Eli MD at OR INTERVENTIONAL RADIOLOGY 11/21/2019 [id number] / / [id number] Gi-Syd Gastro Button [id number] - N/A: Stomach HALYA RD [id number] HEALTH Implanted: Qty: 1 on 05/26/2018 by Brayan Ho MD at [facility] 10/17/2022 [id number] / / Cee- [place]- 9.6 Fr Sl - [id number] Right: Chest B ROSA M Implanted: Qty: 1 on 08/26/2018 by Sterling Eli MD at [facility] 02/17/2022 [id number] / / [id number] Stapler Seamguard [place] 60 - N/A: Abdomen GORE, [id number] OLIVER L Implanted: Qty: 1 on 09/01/2019 by + Ramakrishna Mcgovern MD at OR [employer] 03/21/2020 [id number] / / [id number] Gi- Entuit G-Tube 20fr- Sbrd-20 - N/A: Abdomen [employer]IED [employer] [id number] Implanted: Qty: 1 on 09/01/2019 by Ramakrishna Mcgovern MD at OR [id number] / / [id number] Resolution 360 Clip 235cm Bx 1 [facility] [id number] SCIENTIFIC Implanted: Qty: 1 on 09/27/2019 by Dhara Torres MD at OR documented as of this encounter Procedures Comments Procedure Name Priority Date/Time Associated Diag nosis CBC AND DIFFERENTIAL Routine 12/08/2020 5:45 AM EST PHOSPHORUS LEVEL Routine 12/08/2020 5:45 AM EST MAGNESIUM LEVEL Routine 12/08/2020 5:45 AM EST BASIC METABOLIC PANEL Routine 12/08/2020 5:45 AM EST CBC AND DIFFERENTIAL Timed 12/07/2020 6:12 AM EST TRIGLYCERIDES Routine 12/07/2020 6:12 AM EST PHOSPHORUS LEVEL Routine 12/07/2020 6:12 AM EST MAGNESIUM LEVEL Routine 12/07/2020 6:12 AM EST CALCIUM, IONIZED Routine 12/07/2020 6:12 AM EST COMPREHENSIVE METABOLIC Routine 12/07/2020 PANEL 6:12 AM EST CBC AND DIFFERENTIAL Timed 12/06/2020 8:15 PM EST PARTIAL THROMBOPLASTIN Routine 12/06/2020 TIME (PTT) 9:20 AM EST CREATININE WITH GFR Routine 12/06/2020 9:20 AM EST PROTIME INR Routine 12/06/2020 9:20 AM EST CBC AND DIFFERENTIAL Routine 12/06/2020 9:20 AM EST PHOSPHORUS LEVEL Routine 12/06/2020 9:20 AM EST MAGNESIUM LEVEL Routine 12/06/2020 9:[address] ANGIOGRAPHY ABDOMEN Routine 12/06/2020 AND PELVIS [id number] 6:19 AM EST CBC AND DIFFERENTIAL Routine 12/06/2020 3:27 AM EST BASIC METABOLIC PANEL Routine 12/06/2020 3:27 AM EST COVID-19 PCR Routine 12/06/2020 2:28 AM EST documented in this encounter Results * Basic Metabolic Panel (12/08/2020 5:45 AM EST) [facility] Bicarbonate 26 22 - 29 mmol/L [facility] Clin Pathology Chloride 103 98 - 107 mmol/L [facility] Pathology Creatinine 0.54 0.50 - 0.90 mg/dL [facility]ology Glucose 125 70 - 140 mg/dL [facility] Pathology Potassium 4.1 3.4 - 5.1 mmol/L [facility] Pathology Sodium 135 (L) 136 - 145 mmol/L [facility] Pathology Blood Urea 18 6 - 20 mg/dL [facility] Clin Pathology Anion Gap 6 (L) 8 - 15 mmol/L [facility] Clin Pathology Osmolality, Mihaela 283 275 - 300 mosm/kg [facility] Clin Pathology BUN/Cre Ratio 33 [facility] Clin Pathology Calcium 9.2 8.6 - 10.0 mg/dL [facility] Clin Pathology GFR Non >90 >60 mL/min/1.73m2 [facility] 2008 [facility] Clin CDK-EPI Pathology GFR >90 >60 mL/min/1.73m2 [facility] 2008 [facility] CKD-EPI Pathology Specimen Plasma Performing Organization Address [place] [place] one Number [facility] [address] [place], [place] [address] PATHOLOGY [facility] [address] [place], [place] [address] Clin Pathology * CBC and Differential (12/08/2020 5:45 AM EST) Pathologist [facility] White Blood 4.6 4 - 10 10*3/uL [facility] Clin Pathology Red Blood Cell 3.86 (L) 4.1 - 5.3 10*6/uL [facility] Clin Pathology Hemoglobin 11.0 (L) 11.5 - 15.5 g/dL [facility] Clin Pathology Hematocrit 33.1 (L) 36 - 45 % [facility] Clin Pathology Mean Cell 85.9 80 - 96 fL [facility] Volume [facility] Clin Pathology Mean Cell 28.6 27 - 33 pg [facility] Hemoglobin [facility] Clin Pathology Mean Cell Hgb 33.2 32.0 - 36.0 g/dL [facility] Clin Pathology Red Cell Dist 17.3 (H) 11.5 - 14.5 % [facility] Width [facility] Clin Pathology Platelet Count 273 150 - 400 10*3/uL [facility] Clin Pathology Differential Manual Diff [facility] Type [facility] Clin Pathology Neutrophil 64 % [facility] Clin Pathology Lymphocyte 25 % [facility] Clin Pathology Monocyte 4 % [facility] Clin Pathology Eosinophil 6 % [facility] Pathology Abs Neutrophil 2.97 1.8 - 7.0 10*3/uL [facility] Clin Pathology Abs Lymphocyte 1.16 (L) 1.2 - 4.0 10*3/uL [facility] Clin Pathology Abs Monocyte 0.17 0 - 0.8 10*3/uL [facility] Clin Pathology Abs Eosinophil 0.26 0 - 0.5 10*3/uL [facility] Clin Pathology Atypical 1 % [facility] Clin Pathology Abs Atyp Lymph 0.04 (H) 0 10*3/uL [facility] Clin Pathology Poikilocytosis 1+ [facility] Clin Pathology Echinocytes 1+ [facility] Pathology Specimen EDTA Whole Blood Performing Organization Address [facility] [place] one Number [facility] [address] [place], [place] [address] [address] Clin Pathology * Phosphorus Level (12/08/2020 5:45 AM EST) Phosphorus 4.0 2.5 - 4.5 mg/dL [facility] Clin Pathology Specimen Plasma Performing Organization Address [facility] Ph one Number [facility] [address] [place], [place] [address] [address] Clin Pathology * Magnesium Level (12/08/2020 5:45 AM EST) Magnesium 2.1 1.6 - 2.6 mg/dL [facility] Clin Pathology Specimen Plasma Performing Organization Address City/[facility] Ph one Number [facility] [address] [place], [place] [address] PATHOLOGY [facility] [address] [place], [place] [address] Clin Pathology * CBC and Differential (12/07/2020 6:12 AM EST) White Blood 4.2 4 - 10 10*3/uL [facility] Cell [facility] Clin Pathology Red Blood Cell 3.82 (L) 4.1 - 5.3 10*6/uL [facility] Clin Pathology Hemoglobin 10.8 (L) 11.5 - 15.5 g/dL [facility] Clin Pathology Hematocrit 32.7 (L) 36 - 45 % [facility] Clin Pathology Mean Cell 85.5Comment: Confirmed 80 - 96 fL [facility] Volume Identity of Sample [facility] Clin Pathology Mean Cell 28.2 27 - 33 pg [facility] Hemoglobin [facility] Clin Pathology Mean Cell Hgb 33.0 32.0 - 36.0 g/dL [facility] Clin Pathology Red Cell Dist 16.9 (H) 11.5 - 14.5 % [facility] Width [facility] Clin Pathology Platelet Count 269 150 - 400 10*3/uL [facility] Clin Pathology Differential Automated Diff [facility] Type [facility] Clin Pathology Neutrophil 66 % [facility] Clin Pathology Lymphocyte 22 % [facility] Clin Pathology Monocyte 9 % [facility] Clin Pathology Eosinophil 2 % [facility] Clin Pathology Basophil 1 % [facility] Clin Pathology Abs Neutrophil 2.80 1.8 - 7.0 10*3/uL [facility] Clin Pathology Abs Lymphocyte 0.95 (L) 1.2 - 4.0 10*3/uL [facility] Clin Pathology Abs Monocyte 0.37 0 - 0.8 10*3/uL [facility] Clin Pathology Abs Eosinophil 0.09 0 - 0.5 10*3/uL [facility] Clin Pathology Abs Basophil 0.04 0 - 0.2 10*3/uL [facility] Clin Pathology Nucleated Red 0 0 - 0 /100{WBCs} [facility] Blood Cells [facility] Clin Pathology Specimen EDTA Whole Blood Performing Organization Address City/[facility] Ph one Number [address] [address] Clin Pathology * Triglycerides (12/07/2020 6:12 AM EST) Triglyceride 192 (H) <150 mg/dL [facility] Clin Pathology Specimen Plasma Performing Organization Address [facility] one Number [address] [address] Clin Pathology * Calcium, Ionized (12/07/2020 6:12 AM EST) Calcium 1.20 1.13 - 1.32 mmol/L [facility] Laura Watts [facility] Clin Pathology Specimen Whole Blood Performing Organization Address [facility] one Number [address] [address] Clin Pathology * Phosphorus Level (12/07/2020 6:12 AM EST) Phosphorus 4.2 2.5 - 4.5 mg/dL [facility] Clin Pathology Specimen Plasma Performing Organization Address [facility] one Number [address] [address] Clin Pathology * Magnesium Level (12/07/2020 6:12 AM EST) Magnesium 2.0 1.6 - 2.6 mg/dL [facility] Clin Pathology Specimen Plasma Performing Organization Address [facility] one Number [address] [address] Clin Pathology * Comprehensive Metabolic Panel (12/07/2020 6:12 AM EST) Albumin 4.1 3.5 - 5.2 g/dL [facility] Clin Pathology Bilirubin, 0.4 <1.2 mg/dL [facility] Total [facility] Clin Pathology Calcium 9.0 8.6 - 10.0 mg/dL [facility] Clin Pathology Chloride 107 98 - 107 mmol/L [facility] Clin Pathology Creatinine 0.45 (L)Comment: Confirmed 0.50 - 0.90 mg/dL [facility] Clin Pathology Glucose 134 70 - 140 mg/dL [facility] Clin Pathology Alkaline 70 35 - 104 U/L [facility] Phosphatase [facility] Clin Pathology Potassium 4.3 3.4 - 5.1 mmol/L [facility] Clin Pathology Total Protein 6.0 (L) 6.4 - 8.3 g/dL [facility] Clin Pathology Sodium 139 136 - 145 mmol/L [facility] Clin Pathology AST/SGO 9 <32 U/L [facility] Pathology Blood Urea 14Comment: Confirmed 6 - 20 mg/dL [facility] ate Nitrogen [facility] Clin Pathology Osmolality, Mihaela 290 275 - 300 mosm/kg [facility] Clin Pathology BUN/Cre Ratio 31Comment: Confirmed [facility] Pathology Bicarbonate 25 22 - 29 mmol/L [facility] Clin Pathology ALT/SGP 6 <33 U/L [facility] Pathology Anion Gap 7 (L) 8 - 15 mmol/L [facility] Clin Pathology GFR Non >90 >60 mL/min/1.73m2 [facility] 2008 [facility] Clin CDK-EPI Pathology GFR >90 >60 mL/min/1.73m2 [facility] 2008 [facility] CKD-EPI Pathology Specimen Plasma Performing Organization Address City/[facility] [place] one Number [facility] [address] [place], [place] [address] PATHOLOGY [facility] [address] [place], [place] [address] Clin Pathology * CBC and Differential (12/06/2020 8:15 PM EST) White Blood 4.6 4 - 10 10*3/uL [facility] Clin Pathology Red Blood Cell 3.94 (L) 4.1 - 5.3 10*6/uL [facility] Clin Pathology Hemoglobin 11.6 11.5 - 15.5 g/dL [facility] Clin Pathology Hematocrit 36.6 36 - 45 % [facility] Clin Pathology Mean Cell 93.0Comment: Confirmed 80 - 96 fL [facility] Volume Identity of Sample checked [facility] Alessandro huynh with Laine Jain RN Pathology Mean Cell 29.4 27 - 33 pg [facility] Hemoglobin [facility] Clin Pathology Mean Cell Hgb 31.7 (L) 32.0 - 36.0 g/dL [facility] Conc [facility] Clin Pathology Red Cell Dist 17.7 (H) 11.5 - 14.5 % [facility] Width [facility] Clin Pathology Platelet Count 296 150 - 400 10*3/uL [facility] Clin Pathology Differential Automated Diff [facility] Type [facility] Clin Pathology Neutrophil 68 % [facility] Clin Pathology Lymphocyte 23 % [facility] Clin Pathology Monocyte 7 % [facility] Clin Pathology Eosinophil 1 % [facility] Clin Pathology Basophil 1 % [facility] Clin Pathology Abs Neutrophil 3.17 1.8 - 7.0 10*3/uL [facility] Clin Pathology Abs Lymphocyte 1.07 (L) 1.2 - 4.0 10*3/uL [facility] Clin Pathology Abs Monocyte 0.31 0 - 0.8 10*3/uL [facility] Clin Pathology Abs Eosinophil 0.05 0 - 0.5 10*3/uL [facility] Clin Pathology Abs Basophil 0.03 0 - 0.2 10*3/uL [facility] Clin Pathology Nucleated Red 0 0 - 0 /100{WBCs} [facility] Blood Cells [facility] Clin Pathology Specimen EDTA Whole Blood Performing Organization Address City/[facility] Ph one Number [facility] [address] [place], [place] [address] [address] Clin Pathology * Phosphorus Level (12/06/2020 9:20 AM EST) Phosphorus 3.5 2.5 - 4.5 mg/dL [facility] Clin Pathology Specimen Plasma Performing Organization Address City/[facility] [facility] one Number [facility] [address] [place], [place] [address] [address] Clin Pathology * Magnesium Level (12/06/2020 9:20 AM EST) Magnesium 2.1 1.6 - 2.6 mg/dL [facility] Pathology Specimen Plasma Performing Organization Address [place] [place] Number [facility] [address] [place], [place] [address] PATHOLOGY [facility] [address] [place], [place] [address] Clin Pathology * CBC and Differential (12/06/2020 9:20 AM EST) White Blood 6.8 4 - 10 10*3/uL [facility] Cell [facility] Clin Pathology Red Blood Cell 4.20 4.1 - 5.3 10*6/uL [facility] Clin Pathology Hemoglobin 11.6 11.5 - 15.5 g/dL [facility] Clin Pathology Hematocrit 35.9 (L) 36 - 45 % [facility] Clin Pathology Mean Cell 85.4 80 - 96 fL [facility] Volume [facility] Clin Pathology Mean Cell 27.6 27 - 33 pg [facility] Hemoglobin [facility] Clin Pathology Mean Cell Hgb 32.3 32.0 - 36.0 g/dL [facility] Clin Pathology Red Cell Dist 17.1 (H) 11.5 - 14.5 % [facility] Width [facility] Clin Pathology Platelet Count 323 150 - 400 10*3/uL [facility] Clin Pathology Differential Manual Diff [facility] Type [facility] Clin Pathology Neutrophil 76 % [facility] Clin Pathology Lymphocyte 14 % [facility] Clin Pathology Monocyte 7 % [facility] Clin Pathology Abs Neutrophil 5.21 1.8 - 7.0 10*3/uL [facility] Clin Pathology Abs Lymphocyte 0.95 (L) 1.2 - 4.0 10*3/uL [facility] Clin Pathology Abs Monocyte 0.44 0 - 0.8 10*3/uL [facility] Clin Pathology Atypical 2 % [facility] Lymphocytes [facility] Clin Pathology Myelocyte 1 % [facility] Clin Pathology Abs Atyp Lymph 0.13 (H) 0 10*3/uL [facility] Clin Pathology Abs Myelocyte 0.06 (H) 0 - 0 10*3/uL [facility] Clin Pathology Poikilocytosis 1+ [facility] Clin Pathology Specimen EDTA Whole Blood Performing Organization Address [facility] one Number [facility] [address] [place], [place] [address] [address] 10 Clin Pathology * Partial Thromboplastin Time (PTT) (12/06/2020 9:20 AM EST) PTT 32.5 24.0 - 33.0 s [facility] Clin Pathology Specimen Plasma Performing Organization Address [facility] one Number [address] 132 10 Clin Pathology * Protime-INR (12/06/2020 9:20 AM EST) PT Patient 13.3 12.5 - 14.9 s [facility] Clin Pathology Int'l 1.00Comment: Routine intensity [facility] U pstate Normalized oral anticoagulation INR is Med Univ Clin Ratio typically 2.0-3.0. Target INR Patholo gy must be clinically individualized. Specimen Plasma Performing Organization Address [facility] one Number [address] 132 10 Clin Pathology * Creatinine with GFR (12/06/2020 9:20 AM EST) Creatinine 0.69 0.50 - 0.90 mg/dL [facility] Clin Pathology GFR Non >90 >60 mL/min/1.73m2 [facility] 2009 Med [facility] Clin CDK-EPI Pathology GFR >90 >60 mL/min/1.73m2 [facility] 2009 [facility] Clin CKD-EPI Pathology Specimen Plasma Performing Organization Address [facility] one Number [facility] [address] [place], [place] [address] 132 [address] Clin Pathology * CT Angiography Abdomen and Pelvis (12/06/2020 6:19 AM EST) Specimen Narrative Performed At PROCEDURE INFORMATION: [facility] RADIOLOGY Exam: CT Angiography Abdomen and Pelvis Without And With Contrast, GI Bleeding Exam date and time: 12/06/2020 5:56 AM Age: 40 years old Clinical indication: Other: Bleeding fr om gtube TECHNIQUE: Imaging protocol: Computed tomographic angiography of the abdomen and pelvis without and with contrast. 3D rendering (Not supervised by radiolo gist): MIP and/or 3D reconstructed images were created by the technologist . Radiation optimization: All CT scans at this facility use at least one of these dose optimization techniques: automated exposure control; mA and/or kV adjustment per patient size (includes t argeted exams where dose is matched to clinical indication); or iterative mone nstruction. Contrast material: 350; Contrast volume : 100 ml; Contrast route: INTRAVENOUS (IV); COMPARISON: CT ABDOMEN PELVIS WITH CONTRAST [id number] 3:53 AM FINDINGS: Tubes, catheters and devices: A gastric tube is present which appears to be in good position within the stomach. A 2nd small bowel tube is also identified on the study. Aorta: No aortic aneurysm. No aortic di ssection. Celiac trunk and mesenteric arteries: N o occlusion or significant stenosis. Renal arteries: No occlusion or signifi cant stenosis. Right iliac arteries: No occlusion or s ignificant stenosis. Left iliac arteries: No occlusion or si gnificant stenosis. Liver: No mass. Gallbladder and bile ducts: The patient is status post cholecystectomy. Pancreas: Unremarkable. No mass. No surya gregg dilation. Spleen: The spleen is mildly prominent but unchanged from the prior study. Adrenal glands: Kidneys and ureters: Unremarkable. No s olid mass. No hydronephrosis. Stomach and bowel: The patient is statu s post prior gastric surgery. Appendix: No evidence of appendicitis. Intraperitoneal space: Unremarkable. No free air. No significant fluid collection. Lymph nodes: Unremarkable. No enlarged lymph nodes. Urinary bladder: Unremarkable. No mass. Reproductive: Unremarkable as visualize d. Bones/joints: No acute fracture. No dis location. Soft tissues: Unremarkable. IMPRESSION: 1. No active extravasation noted. 2. Gastric in jejunostomy tubes in good position. 3. Stable splenomegaly. 4. Status post cholecystectomy and prio r gastric surgery THIS DOCUMENT HAS BEEN ELECTRONICALLY S IGNED BY GABRIELLE MURCIA MD Procedure Note Interface, Received Via [employer] - 12/06/2020 6:35 AM EST PROCEDURE INFORMATION: Exam: CT Angiography Abdomen and Pelvis Without And With Contrast, GI Bleeding Exam date and time: 12/06/2020 5:56 AM Age: 40 years old Clinical indication: Other: Bleeding from gtube TECHNIQUE: Imaging protocol: Computed tomographic angiography of the abdomen and pelvis without and with contrast. 3D rendering (Not supervised by radiolog ist): MIP and/or 3D reconstructed images were created by the technologist. Radiation optimization: All CT scans at this facility use at least one of these dose optimization techniques: automated exposure control; mA and/or kV adjustment per patient size (includes targeted exams where dose is matched to clinical indication); or iterative reconstruction. Contrast material: 350; Contrast volume: 100 ml; Contrast route: INTRAVENOUS (IV); COMPARISON: CT ABDOMEN PELVIS WITH CONTRAST [id number] 10/28/2019 3:53 AM FINDINGS: Tubes, catheters and devices: A gastric tube is present which appears to be in good position within the stomach. A 2nd small bowel tube is also identified on the study. Aorta: No aortic aneurysm. No aortic dissection. Celiac trunk and mesenteric arteries: No occlusion or significant stenosis. Renal arteries: No occlusion or significant stenosis. Right iliac arteries: No occlusion or significant stenosis. Left iliac arteries: No occlusion or significant stenosis. Liver: No mass. Gallbladder and bile ducts: The patient is status post cholecystectomy. Pancreas: Unremarkable. No mass. No ductal dilation. Spleen: The spleen is mildly prominent but unchanged from the prior study. Adrenal glands: Kidneys and ureters: Unremarkable. No solid mass. No hydronephrosis. Stomach and bowel: The patient is status post prior gastric surgery. Appendix: No evidence of appendicitis. Intraperitoneal space: Unremarkable. No free air. No significant fluid collection. Lymph nodes: Unremarkable. No enlarged lymph nodes. Urinary bladder: Unremarkable. No mass. Reproductive: Unremarkable as visualized. Bones/joints: No acute fracture. No dislocation. Soft tissues: Unremarkable. IMPRESSION: 1. No active extravasation noted. 2. Gastric in jejunostomy tubes in good position. 3. Stable splenomegaly. 4. Status post cholecystectomy and prior gastric surgery THIS DOCUMENT HAS BEEN ELECTRONICALLY SIGNED BY GABRIELLE MURCIA MD Performing Organization Address City/State/Zipcode Ph one Number [facility] RADI[facility] [address] [place] [address] * Basic Metabolic Panel (12/06/2020 3:27 AM EST) Bicarbonate 23 22 - 29 mmol/L [facility] Clin Pathology Chloride 108 (H) 98 - 107 mmol/L [facility] Clin Pathology Creatinine 0.62 0.50 - 0.90 mg/dL [facility] Pathology Glucose 128 70 - 140 mg/dL [facility] Pathology Potassium 3.3 (L) 3.4 - 5.1 mmol/L [facility] Pathology Sodium 141 136 - 145 mmol/L [facility] Clin Pathology Blood Urea 7 6 - 20 mg/dL [facility] Clin Pathology Anion Gap 10 8 - 15 mmol/L [facility] Clin Pathology Osmolality, Mihaela 292 275 - 300 mosm/kg [facility] Clin Pathology BUN/Cre Ratio 11 [facility] Clin Pathology Calcium 8.2 (L) 8.6 - 10.0 mg/dL [facility] Clin Pathology GFR Non >90 >60 mL/min/1.73m2 [facility] 2008 [facility] Clin CDK-EPI Pathology GFR >90 >60 mL/min/1.73m2 [facility] 2008 [facility] CKD-EPI Pathology Specimen Plasma Performing Organization Address [facility] [place] one Number [facility] [address] [place], [place] [address] PATHOLOGY [facility] [address] [place], [place] [address] Clin Pathology * CBC and Differential (12/06/2020 3:27 AM EST) White Blood 5.6 4 - 10 10*3/uL [facility] Clin Pathology Red Blood Cell 3.79 (L) 4.1 - 5.3 10*6/uL [facility] Clin Pathology Hemoglobin 10.8 (L) 11.5 - 15.5 g/dL [facility] Clin Pathology Hematocrit 32.5 (L) 36 - 45 % [facility] Clin Pathology Mean Cell 85.6 80 - 96 fL [facility] Volume [facility] Clin Pathology Mean Cell 28.6 27 - 33 pg [facility] Clin Pathology Mean Cell Hgb 33.4 32.0 - 36.0 g/dL [facility] Clin Pathology Red Cell Dist 17.7 (H) 11.5 - 14.5 % [facility] Width [facility] Clin Pathology Platelet Count 280 150 - 400 10*3/uL [facility] Clin Pathology Differential Automated Diff [facility] Type Med Univ Clin Pathology Neutrophil 68 % [facility] Clin Pathology Lymphocyte 21 % [facility] Clin Pathology Monocyte 9 % [facility] Clin Pathology Eosinophil 1 % [facility] Clin Pathology Basophil 1 % [facility] Clin Pathology Abs Neutrophil 3.86 1.8 - 7.0 10*3/uL [facility] Clin Pathology Abs Lymphocyte 1.15 (L) 1.2 - 4.0 10*3/uL [facility] Clin Pathology Abs Monocyte 0.48 0 - 0.8 10*3/uL [facility] Clin Pathology Abs Eosinophil 0.04 0 - 0.5 10*3/uL [facility] Clin Pathology Abs Basophil 0.03 0 - 0.2 10*3/uL [facility] Clin Pathology Nucleated Red 0 0 - 0 /100{WBCs} [facility] Blood Cells [facility] Clin Pathology Specimen EDTA Whole Blood Performing Organization Address City/[facility] one Number [facility] [address] [place], [place] [address] PATHOLOGY [facility] [address] [place], [place] [address] Clin Pathology * COVID-19 PCR (12/06/2020 2:28 AM EST) Specimen Nasopharyngeal Swab [facility] Description CLINICAL PATHOLOGY SARS CoV-2 2019 nCoV Real-Time RT-PCR: 2019 nCoV Real-Je e [facility] NOT DETECTED RT-PCR: NOT DETECTED [facility] Clin Pathology Assay performed Test performed using [employer] [facility] Simplexa COVID-19 Direct [facility] Clin Assay. This test is only for Pathology use under Food and Drug Administration's Emergency Use Authorization. Additional information is available on the following FDA websites for healthcare providers and patients. https://www.fda.gov/media/2810 20/download, https://www.fda.gov/media/3116 21/download First COVID-19 NO [facility] Test? CLINICAL PATHOLOGY Employed in NO [facility] CLINICAL setting? PATHOLOGY Symptomatic for NO [facility] COVID-19 as CLINICAL defined by CDC? PATHOLOGY Date of symptom UNKNOWN [facility] onset? CLINICAL ([id number]) PATHOLOGY Hospitalized NO [facility] for COVID-19? CLINICAL PATHOLOGY Admitted to ICU UNKNOWN [facility] for COVID-19? CLINICAL PATHOLOGY Resident in a NO [facility] CLINICAL (group) care PATHOLOGY setting? ? NO [facility] CLINICAL PATHOLOGY Specimen Nasopharyngeal Swab Performing Organization Address [place] [place] one Number [facility] [address] [place], [place] [address] PATHOLOGY [facility] [address] [place], [place] [address] Clin Pathology documented in this encounter Visit Diagnoses Diagnosis Bleeding from gastrostomy tube site - P rimary Other gastrostomy complication On total parenteral nutrition (TPN) Other specified conditions influencing health status Malfunction of jejunostomy tube Mechanical complication of colostomy an d enterostomy Skin irritation Unspecified disorder of skin and subcut aneous tissue documented in this encounter Administered Medications Action Date Dose Rate Site Medication Order MAR Action 12/08/2020 8:10 AM EST 50 mg diphenhydrAMINE (BENADRYL) injection 50 Given by IV mg push 50 mg, Intravenous, Daily PRN, Itching, Allergies, Nausea, Other, Home Medication, Starting Sat12/06/20 at 1325, For 719 hours 50 mg Given by IV push 12/07/2020 6:22 AM EST 50 mg New Bag 12/06/2020 2:13 PM EST 12/08/2020 10:03 AM EST 80 mg Abdomina l Tissue enoxaparin sodium (LOVENOX) injection 80 Given mg 80 mg, Subcutaneous, Every 12 hours Standard (2 times per day), First dose (after last modification) on Sat 1 at 2100, For 30 days 80 mg Given 12/07/2020 9:34 PM EST 80 mg Given 12/07/2020 7:46 AM EST 12/08/2020 10:04 AM EST 20 mg fluoxetine (PROZAC) capsule 20 mg Given 20 mg, Oral, Daily Standard, First dos e on Sat12/06/20 at 0900, For 30 days 20 mg Given 12/07/2020 7:46 AM EST heparin lock flush 10 UNIT/ML injection 30 Units 30 Units (3 mL), Intracatheter, PRN, Line Care, Starting Sat12/07/20 at 0952 , For 30 days heparin lock flush 10 UNIT/ML injection 30 Units 30 Units (3 mL), Intravenous, PRN, Line Care, Flushing, Starting Sat12/07/20 at 1003, For 30 days, Verify blood return before use. Flush lines with 10 mL Sodium Chloride 0.9% routinely Q12hrs & before and after infusions or blood sampling per policy followed by 3 mL Heparin 10 units/mL (UNLESS PATIENT HAS HEPARIN ALLERGY). Reference CM C-[address] Central Lines., 12/08/2020 5:45 AM EST 30 Units heparin lock flush 10 UNIT/ML injection Given by IV 30 Units push 30 Units (3 mL), Intravenous, PRN, Line Care, Flushing, Starting Sat12/07/20 at 1003, For 30 days, Verify blood return before use. Flush lines with 10 mL Sodium Chloride 0.9% routinely Q12hrs & before and after infusions or blood sampling per policy followed by 3 mL Heparin 10 units/mL (UNLESS PATIENT HAS HEPARIN ALLERGY). Reference CM C-34 Central Lines., 30 Units Given by IV push 12/08/2020 1:40 AM EST 30 Units Given by IV push 12/07/2020 6:07 PM EST 12/07/2020 11:54 AM EST 30 Units heparin lock flush 10 UNIT/ML injection Given by IV 30 Units push 30 Units (3 mL), Intravenous, Every 12 hours, First dose on Sat12/07/20 at 1015, For 30 days, Verify blood return before use. Flush lines with 10 mL Sodium Chloride 0.9% routinely Q12hrs & before and after infusions or blood sampling per policy followed by 3 mL Heparin 10 units/mL (UNLESS PATIENT HAS HEPARIN ALLERGY). Reference CM C-34 Central Lines., 12/08/2020 10:26 AM EST 30 Units heparin lock flush 10 UNIT/ML injection Given by IV 30 Units push 30 Units (3 mL), Intravenous, Every 12 hours, First dose on Sat12/07/20 at 1015, For 30 days, Verify blood return before use. Flush lines with 10 mL Sodium Chloride 0.9% routinely Q12hrs & before and after infusions or blood sampling per policy followed by 3 mL Heparin 10 units/mL (UNLESS PATIENT HAS HEPARIN ALLERGY). Reference CM C-34 Central Lines., 30 Units Given by IV push 12/07/2020 9:35 PM EST 30 Units Given by IV push 12/07/2020 11:54 AM EST 12/07/2020 6:06 PM EST 0.5 mg LORazepam (ATIVAN) injection 0.5 mg Given by IV 0.5 mg, Intravenous, Every 4 hours push PRN, Anxiety, Starting Sat12/06/20 at 1619, For 3 days 0.5 mg Given by IV push 12/07/2020 10:44 AM EST 0.5 mg Given by IV push 12/06/2020 7:25 PM EST 12/08/2020 9:23 AM EST 4 mg ondansetron (ZOFRAN) injection 4 mg Given by IV 4 mg, Intravenous, Every 8 hours PRN, push Nausea, Vomiting, Starting Sat12/06/20 at 1618, For 3 days 4 mg Given by IV push 12/07/2020 6:06 PM EST 4 mg Given by IV push 12/07/2020 7:46 AM EST 12/08/2020 1:41 PM EST 40 mg oxyCODONE (ROXICODONE) 5 MG/5ML solution Given 40 mg 40 mg, Oral, Every 4 hours PRN, Moderate Pain (Pain Scale Score 4-6), Severe Pain (Pain Scale Score 7-10), Starting Sat12/08/20 at 1112, For 3 day s pantoprazole (PROTONIX) EC tablet 40 mg 40 mg, Oral, Daily Standard, First dos e on Sat12/09/20 at 0900, For 30 days, Do not crush or chew, sodium chloride (preservative free) 0.9 % flush 3 mL 3 mL, Intravenous, Every 8 hours PRN, Line Care, Starting Sat12/07/20 at 0952 , For 30 days sodium chloride 0.9 % bag 3-20 mL 3-20 mL, Intravenous, at 1-999 mL/hr, PRN, For Medication Administration and Line Clearance, Starting Sat12/07/20 at 1002, For 30 days, Flush line with sufficient amount of fluid needed based on extender recommendation for specific line size. Rate should be run at the same rate as medication in the line being flushed., sodium chloride flush 0.9 % 10 mL 10 mL, Intravenous, PRN, Flushing, Starting Sat12/07/20 at 1003, For 30 days, Verify blood return before use. Flush lines with 10 mL Sodium Chloride 0.9% routinely Q12hrs & before and afte r infusions or blood sampling per policy followed by 3 mL Heparin 10 units/mL (UNLESS PATIENT HAS HEPARIN ALLERGY). Reference CM C-34 Central Lines., 12/08/2020 5:45 AM EST 10 mLs sodium chloride flush 0.9 % 10 mL Given by IV 10 mL, Intravenous, PRN, Flushing, push Starting Sat12/07/20 at 1003, For 30 days, Verify blood return before use. Flush lines with 10 mL Sodium Chloride 0.9% routinely Q12hrs & before and afte r infusions or blood sampling per policy followed by 3 mL Heparin 10 units/mL (UNLESS PATIENT HAS HEPARIN ALLERGY). Reference CM C-34 Central Lines., 10 mLs Given by IV push 12/08/2020 1:40 AM EST 10 mLs Given by IV push 12/07/2020 6:06 PM EST 12/08/2020 8:10 AM EST 10 mLs sodium chloride flush 0.9 % 10 mL Given by IV 10 mL, Intravenous, Every 12 hours, push First dose on Sat12/07/20 at 1015, For 30 days, Verify blood return before use . Flush lines with 10 mL Sodium Chloride 0.9% routinely Q12hrs & before and afte r infusions or blood sampling per policy followed by 3 mL Heparin 10 units/mL (UNLESS PATIENT HAS HEPARIN ALLERGY). Reference CM C-34 Central Lines., 10 mLs Given by IV push 12/07/2020 11:55 AM EST 12/08/2020 10:25 AM EST 10 mLs sodium chloride flush 0.9 % 10 mL Given by IV 10 mL, Intravenous, Every 12 hours, push First dose on Sat12/07/20 at 1015, For 30 days, Verify blood return before use . Flush lines with 10 mL Sodium Chloride 0.9% routinely Q12hrs & before and afte r infusions or blood sampling per policy followed by 3 mL Heparin 10 units/mL (UNLESS PATIENT HAS HEPARIN ALLERGY). Reference CM C-[address] Lines., 10 mLs Given by IV push 12/07/2020 9:35 PM EST 10 mLs Given by IV push 12/07/2020 11:54 AM EST sodium chloride flush 0.9 % 20 mL 20 mL, Intravenous, PRN, After Parenteral Nutrition, Starting Sat12/07/20 at 1002, For 30 days, Flush amina e with 20 mL Sodium Chloride 0.9 % after Parenteral Nutrition (PN)., 12/07/2020 8:22 PM EST 7.5 mg zolpidem (AMBIEN) tablet 7.5 mg Given 7.5 mg, Oral, Nightly PRN, Sleep, Starting Sat12/06/20 at 0303, For 71 hours 7.5 mg Given 12/06/2020 9:51 PM EST 7.5 mg Given 12/06/2020 3:23 AM EST Action Date Dose Rate Site Medication Order MAR Action 12/07/2020 9:36 PM EST 650 mg acetaminophen (TYLENOL) tablet 650 mg Given 650 mg, Oral, Every 6 hours PRN, Mild Pain (Pain Scale Score 1-3), Starting Sat12/06/20 at 0319, For [address] [facility] 3,000 mg from all sources in 24 hours., 12/06/2020 6:36 AM EST 12.5 mg diphenhydrAMINE (BENADRYL) injection Given by IV 12.5 mg push 12.5 mg, Intravenous, Once, Sat12/06/20 at 0630, For 1 dose 12/06/2020 7:06 PM EST 14.5 mL/hr 14.5 mL/hr fat emulsion fish oil/plant based New Bag infusion 20 % (200 mg/mL) 14.5 mL/hr, Intravenous, Administer ove r 12 Hours, Daily at 1900, First dose on Sat12/06/20 at 1900, For 12 hours 12/06/2020 6:01 AM EST 100 mLs Other iohexol (OMNIPAQUE) 350 MG/ML contrast New injection 100 mL Syringe/Cart 100 mL, Given by IV, 1 TIME IMAGING, Sat [place] 12/06/20 at 0600, For 1 dose 12/06/2020 3:51 AM EST 2 mg morphine sulfate (PF) injection 2 mg Given by IV 2 mg, Intravenous, Once, Sat12/06/20 at push 0400, For 1 dose 12/08/2020 9:20 AM EST 2 mg morphine sulfate (PF) injection 2 mg Given by IV 2 mg, Intravenous, Every 3 hours PRN, push Severe Pain (Pain Scale Score 7-10), Starting Sat12/06/20 at 0920, For 3 day s 2 mg Given by IV push 12/08/2020 5:46 AM EST 2 mg Given by IV push 12/08/2020 1:40 AM EST 12/08/2020 10:05 AM EST 40 mg pantoprazole (PROTONIX) injection 40 mg New Bag 40 mg, Intravenous, 2 Times Daily, Firs t dose (after last modification) on Sat12/06/20 at 0900, For 7 days, Dilute wit h 10 mL of 0.9% NaCl.Give IVP over 2 minutes. Flush before and after., 40 mg Given by IV push 12/07/2020 9:34 PM EST 40 mg Given by IV push 12/07/2020 7:46 AM EST 12/06/2020 1:31 PM EST 10 mEq 100 mL/hr potassium chloride 10 mEq in 100 mL IVPB New Bag (premix) 10 mEq, Intravenous, Administer over 60 Minutes, Every 1 hour, First dose on Sat12/06/20 at 0800, For 4 doses 10 mEq 100 mL/hr New Bag 12/06/2020 12:27 PM EST 10 mEq 100 mL/hr New Bag 12/06/2020 10:45 AM EST 12/07/2020 6:14 AM EST 88 mL/hr TPN adult Rate/Dose Intravenous, at 88-176 mL/hr, Daily at Change 1900, First dose on Sat12/06/20 at 1900 , For 1 day, Start rate at 88 mL/hr for 1 hours., Increase rate to 176 mL/hr for 10 hours., Decrease rate to 88 mL/hr fo r 1 hours, then stop., , Is patient on propofol (= 1 fat kcal/ml)? No, 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 176 mL/hr Rate/Dose Change 12/06/2020 8:10 PM EST 88 mL/hr New Bag 12/06/2020 7:04 PM EST 12/08/2020 5:40 AM EST 88 mL/hr TPN adult Rate/Dose Intravenous, at 88-176 mL/hr, Daily at Change 1900, First dose (after last reorder) o n 12/07/20 at 1900, For 1 day, Start rate at 88 mL/hr for 1 hours., Increase rate to 176 mL/hr for 10 hours., Decrease rate to 88 mL/hr for 1 hours, then stop., , Is patient on propofol (= 1 fat kcal/ml)? 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
--- OUTSIDE RECORDS SUMMARY | 2020-12-11 20:06 | CCD | Continuity of Care Document ---
Author Author Claude SON MD Organization Unknown Address [address], [address] [place] [address] Phone [phone] Care Team Providers Care Clinical Lab Assistant Name Role Phone Cait Wyatt M.D. AUTM [phone] Problems Description No Information Available Social History Type Date Description Comments Sex Unknown ETOH Use Denies alcohol use Tobacco Use Start: Unknown Patient has never smoked (pipe, cigarette, cigar) Allergies, Adverse Reactions, Alerts Description No Information Available Medications Active Medications SIG Qnty Indications Ordering Provide r Date Oxycodone HCL 30mg Tablets 1 by mouth every 8 hour needed Unknown 0 Benadryl Allergy 25mg Capsules take 1 capsule by oral route every 6 hours needed Un known Zofran 8mg Tablets 1 tab by mouth up to three times a day for nausea Unknown Protonix 40mg Tablets DR 1 by mouth every day Unknown Ambien 10mg Tablets take 1 tablet (10mg) by oral route every day AT bedtime Unknown Lovenox 100mg/ml Solution 0.9ml 1 sq twice a day or directed Unknown Fluoxetine HCL 10mg Capsules 1 by mouth every day Unknown Carafate 1gm Tablets 1 tablet dissolved in one tbs warm water taken by mouth 3x/ day Unknow n Immunizations Description No Information Available Vital Signs Date Vital Result Comment 11/11/2020 10:13am Height 67.00 inches 5'7" Weight 181.12 lb BMI (Body Mass Index) 28.4 kg/m2 BP Systolic 129 mmHg BP Diastolic 85 mmHg Heart Rate 126 /min Body Temperature 97.0 F Body Temperature 36.1 C O2 % BldC Oximetry 96 % Results Description No Information Available Procedures Date Code Description Status 10/25/2020 23620 Endoscopy Upper GI Gastrostomy T ube Completed 10/25/2020 18381 Upper Gastrointestinal Endoscopy W/Transendoscopic Needle Asp Completed 10/20/2020 19345 Endoscopy Upper GI Biopsy Comple 140 Proof Devices Description No Information Available Encounters Type Date Location Provider Dx Diagnosis Office Visit 11/11/2020 10:00a [facility] Adrian monroe MD R10.84 Generalized abdominal pain R11.14 Bilious vomiting Office Visit 10/29/2020 2:16a [facility] Surgical Services Raymundo Grullon DO Office Visit 10/26/2020 2:11a [facility] Adrian Son MD Office Visit 10/23/2020 2:15a [facility] Surgical Services Adrian Son MD R10.9 Unspecified abdominal pain R11.10 Vomiting, unspecified Office Visit 10/21/2020 2:23a [facility] Services Adrian monroe MD K56.609 Unsp intestnl obst, unsp to partial v ersus complete obst Office Visit 10/20/2020 3:10a [facility] Services Adrian monroe MD R10.13 Epigastric pain R11.14 Bilious vomiting Office Visit 10/19/2020 2:33a [facility] Surgical Services Adrian monroe MD R10.84 Generalized abdominal pain R11.14 Bilious vomiting Office Visit 10/19/2020 2:31a [facility] Neurology TROY Young R56.9 Unspecified convulsions Office Visit 10/18/2020 2:37a [facility] Services Adrian monroe MD R10.84 Generalized abdominal pain R11.14 Bilious vomiting Assessments Date Code Description Provider 11/11/2020 R10.84 Generalized abdominal pain Edward Son MD 11/11/2020 R11.14 Bilious vomiting Adrian carney MD 10/25/2020 K46.9 Unspecified abdominal hernia wit hout obstruction or gangrene Adrian Son MD 10/25/2020 R10.84 Generalized abdominal pain Edward Son MD 10/23/2020 R10.9 Unspecified abdominal pain Edward Son MD 10/23/2020 R11.10 Vomiting, unspecified Adrian Lucas MD 10/21/2020 K56.609 Unspecified intestin al obstruction, unspecified to partial versus complete obstruction Adrian Son MD 10/20/2020 R11.2 Nausea with vomiting, unspecifie d Adrian Son MD 10/20/2020 R10.13 Epigastric pain Adrian Son MD 10/20/2020 Z98.84 Bariatric surgery status Adrian Son MD 10/20/2020 R11.14 Bilious vomiting Adrian carney MD 10/20/2020 R10.13 Epigastric pain Adrian Son MD 10/19/2020 R10.84 Generalized abdominal pain Edward Son MD 10/19/2020 R11.14 Bilious vomiting Adrian carney MD 10/19/2020 R56.9 Unspecified convulsions TROY Pulliam 10/18/2020 R10.84 Generalized abdominal pain Edward Son MD 10/18/2020 R11.14 Bilious vomiting Adrian carney MD Plan of Treatment 11/11/2020 - Adrian Son MD* R10.84 Generalized abdominal pain* Comments: * Claude has a very complex prior history.I am only partially aware of this history and she has seen multiple different bariatric surgeons over the years.Briefly the patient did have a gastric bypass in 2008.I met the patient in 2016 when she was suffering from severe abdominal pain and GI symptoms.A fairly aggressive workup including CT scan of the abdomen and pelvis, upper GI series with small bowel follow-through, upper endoscopy, and diagnostic laparoscopy failed to reveal a definitive bariatric cause for the patient's symptoms.At one point patient was referred to [facility] for evaluation.It's unclear to me whether the patient had a full workup there or not.I do believe she was seen at least once.However, I understand that her insurance restrictions that preclude her from seeing the GI and bariatric specialist at [facility].Since I have been unable to establish a definitive bariatric problem for this patient, I am recommending a tertiary care consultation.I do not want to ignore true bariatric symptoms, however I have been unable to establish a bariatric cause for her problems.At the curr ent time the patient does have a jejunostomy feeding tube. She has a decompressing PEG tube. I do not believe she eats much.I believe she is maintained on intravenous hydration and nutrition. * R11.14 Bilious vomiting Functional Status Description No Information Available Mental Status Description No Information Available Referrals Refer to Reason for Referral Status Appt Date Thong Castañeda MD BARIATRIC PROGRAM -had gastr ic bypass reversal and j tube by Dr Mcgovern /follow with Dr Bergman has heartburn and regurgitation LVM for pt for next steps 06/29/20 LVM for pt for next steps 07/07/20 Closed [address] [place] [address], [address] [place] [address] [phone]
--- OUTSIDE RECORDS SUMMARY | 2020-12-11 20:07 | CCD | Continuity of Care Document ---
Author Author Claude SON MD Organization Unknown Address [address], [address] [place] [address] Phone [phone] Care Team Providers Care Animal Maintenance Supervisor Name Role Phone Cait Wyatt M.D. AUTM [phone] Problems Description No Information Available Social History [...] Available Procedures Date Code Description Status 10/25/2020 43493 Endoscopy Upper GI Gastrostomy T ube Completed 10/25/2020 33241 Upper Gastrointestinal Endoscopy W/Transendoscopic Needle Asp Completed 10/20/2020 66282 Endoscopy Upper GI Biopsy Comple romario Medical Devices Description No Information Available Encounters Type Date Location Provider Dx Diagnosis Office Visit 10/29/2020 2:16a [facility] Surgical Services Raymundo Grullon DO Office Visit 10/26/2020 2:11a [facility] Adrian Son MD Office Visit 10/20/2020 3:10a [facility] Surgical Services Adrian monroe MD R10.13 Epigastric pain R11.14 Bilious vomiting Office Visit 10/19/2020 2:31a [facility] Neurology TROY Young R56.9 Unspecified convulsions Office Visit 10/18/2020 2:37a [facility] Surgical Services Adrian monroe MD R10.84 Generalized abdominal pain R11.14 Bilious vomiting Assessments Date Code Description Provider 11/11/2020 R10.84 Generalized abdominal pain Edward Son MD 11/11/2020 R11.14 Bilious vomiting Adrian carney MD 10/25/2020 K46.9 Unspecified abdominal hernia wit hout obstruction or gangrene Adrian Son MD 10/25/2020 R10.84 Generalized abdominal pain Edward Son MD 10/20/2020 R11.2 Nausea with vomiting, [...] symptoms.At one point patient was referred to [facility] for evaluation.It's unclear to me whether the patient had a full workup there or not.I do believe she was seen at least once.However, I understand that her insurance restrictions that preclude her from seeing the GI and bariatric specialist at [facility].Since I have been unable to establish [...] pt for next steps 07/07/20 [address]osed [address] [place] [address], [address] [place] [address] [phone]
--- OUTSIDE RECORDS SUMMARY | 2020-12-11 20:07 | CCD ---
Author Author [facility] Organization [facility] Address Unknown Phone Unavailable Care Team Providers Care Escrow Manager Name Role Phone Cait Wyatt Unavailable PROBLEMS Type Condition ICD9-CM Code RDP12-VW Code Onset Dates Condition S tatus SNOMED Code Notes Problem Chronically on opiate therapy Z79.899 Active 12 2209260 Problem Lumbar post-laminectomy syndrome M96.1 Active 279799030 Problem 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 Active 8113423 Problem On total parenteral nutrition (TPN) Z78.9 Acti ve 41439961 Problem Gastroparesis K31.84 Active 664942916 Problem Gastroesophageal reflux disease without esophagitis K21.9 Active 337131260 Problem Psychophysiological insomnia F51.04 Active 425 619068 Problem S/P gastric bypass Z98.84 Active 040422681 Problem Short gut syndrome K91.2 Active 19946147 Problem Adult failure to thrive R62.7 Active 43880689 1 Problem 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 Active 69 52103 Problem Single subsegmental pulmonary embolism without a cute cor pulmonale I26.93 Active 13738818 Problem Pulmonary nodules R91.8 Active 740854489 Problem Iron deficiency anemia due to chronic blood loss D 50.0 Active 617999691 Problem Caloric malnutrition E46 Active 761046651 Problem Depression with anxiety F41.8 Active 04622156 Problem 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 Acti ve 55771411 Problem Staphylococcus epidermidis infection B95.7 Act lucia 833159689 Problem Jejunostomy tube present Z93.4 Active 3466096 01 Problem Leukocytosis, unspecified type D72.829 Active 1 24471217 Problem Anemia, chronic disease D63.8 Active 36133567 6 ALLERGIES Allergen (clinical drug ingredient) Drug/Non Drug Allergy do cumented on EMR Reaction Allergy Type Onset Date Status NSAIDS GI Bleed Non Drug Allergy Active TOMATOES Anaphylaxis Non Drug Allergy Active Sulfa (for allergy use only) Anaphylaxis Drug Allergy Active Levaquin Anaphylaxis Drug Allergy Active ENCOUNTERS from 1979 to 2020-11-09 Encounter Location Date Provider Diagnosis [address] [address] Oct, Cait Wyatt IMMUNIZATIONS Vaccine Route Administration [...] Education Language: Question Answer Notes Languages spoken: Tamazight Scientologist: Question Answer Notes Scientologist 33 None Sexual Hx: Question Answer Notes [...] Notes Start Da te End Date Status Protonix 40 MG 40 mg Intravenous twice a day via PICC Active Heparin Lock Flush 100 UNIT/ML 500 units Intravenous Daily via P ICC line Mar, Active Zofran 4 MG/2ML 2 mg Intravenous BID prn n/v via PICC Active Lovenox 100 MG/ML 100 mg Subcutaneous every 12 hours for 30 Days Mar, Active Nystatin 170284 UNIT/GM 1 application Externally Twice a day for 30 Days Dec, Active FLUoxetine HCl 20 MG/5ML 5 ml Orally Once a day for 30 day(s) Aug, Active May Have - Please dispense nebulizer, m ask, and tubing Use per medication instructions for 9999 days Jun, Activ e Glucagon 3 MG/DOSE as directed subcutaneously Daily as needed Nov, Active Acetaminophen 500 MG 1 tablet as needed Orally every 6 hrs prn p ain Mar, Active Oxycodone HCl 30 MG 1 ml as needed Orally every 6 hrs Active Zolpidem Tartrate 10 MG 1 tablet at bedtime as neede d Orally Once a day for 30 Days Aug, Active Albuterol Sulfate (2.5 MG/3ML) 0.083% 3 ml as needed I nhalation every 4 hours as needed for SOB Mar, Active Sucralfate 1 GM/10ML 10 ml on an empty stomach Orally three times benjamin ly Active DiphenhydrAMINE HCl 50 MG/ML 50 mg subcutaneously Merary y as needed for severe nausea, via PICC line Mar, Active Ventolin HFA 108 (90 Base) MCG/ACT 1 puff as needed In halation every 6 hours prn SOB Mar, Active Infuvite Adult - 1 vial Intravenous via PICC before bedtime Mar, Active Promethazine HCl 25 mg 1 suppository as needed Rectal every 12 hrs for n/v Active HydrOXYzine HCl 25 MG 1 cap Orally every 6 hrs prn itching for 3 0 Days Sep, Active Sodium Chloride Flush 0.9 % as directed Intravenous vi a PICC inject 10 mLs into the vein as needed( for before and after infusion PRN) Active PROCEDURES No Information RESULTS No Results REASON FOR VISIT pre op clearance MEDICAL (GENERAL) HISTORY Type Description Date Medical [...] abdominal pain - [facility] [place] Medical History Depression and anxiety Medical History [...] Gastric bypas reversal - Dr. Mcgovern 09/2019 Surgical History g tube placenment and hernia repair 02/2021 Hospitalization History RELATED TO SURGERY Hospitalization History G tube infection 7 days -- Hospitalization History Blood Transfusion 10/2018 Hospitalization History [facility] ED- Abdominal pain. 12/10/2018 Hospitalization [...] Name Sig Start Date Stop Date Nystatin 535739 UNIT/GM 1 application Externally Twice a day for 30 Days Dec, Next Appt Details Provider Name:Cait Leigh Carlos Albertoderrick, 2020-11-14 11:15:00 AM, [address] [place], [address], Insurance Providers Payer Name Payer Address Payer Phone Insured Name Patient Relati onship to Insured Coverage Start Date Coverage End Date [facility] [address] [facility] [id number] [place]
--- OUTSIDE RECORDS SUMMARY | 2020-12-11 20:07 | CCD | Continuity of Care Document ---
Author Author Claude SON MD Organization Unknown Address [address], [address] [place] [address] Phone [phone] Care Team Providers Care Lunchroom Operator Name Role Phone Cait Wyatt M.D. AUTM [phone] Problems Description No Information Available Social History [...] Available Procedures Date Code Description Status 10/25/2020 61763 Endoscopy Upper GI Gastrostomy T ube Completed 10/25/2020 17456 Upper Gastrointestinal Endoscopy W/Transendoscopic Needle Asp Completed 10/20/2020 90964 Endoscopy Upper GI Biopsy Comple [employer] Medical Devices Description No Information Available Encounters Type Date Location Provider Dx Diagnosis Office Visit 10/29/2020 2:16a [facility] Surgical Services Raymundo Grullon DO Office Visit 10/26/2020 2:11a [facility] Adrian Son MD Office Visit 10/20/2020 3:10a [facility] Surgical Services Adrian monroe MD R10.13 Epigastric pain R11.14 Bilious vomiting Office Visit 10/19/2020 2:31a [facility] Neurology TROY Young R56.9 Unspecified convulsions Office Visit 10/18/2020 2:37a [facility] Surgical Services Adrian monroe MD R10.84 [...] symptoms.At one point patient was referred to [facility] for evaluation.It's unclear to me whether the patient had a full workup there or not.I do believe she was seen at least once.However, I understand that her insurance restrictions that preclude her from seeing the GI and bariatric specialist at [facility].Since I have been unable to establish [...] pt for next steps 07/07/20 Closed [address] [place] [address], [address] [place] [address] [phone]
--- OUTSIDE RECORDS SUMMARY | 2020-12-11 20:07 | CCD | Continuity of Care Document ---
Author Author Claude SON MD Organization Unknown Address [address], [address] [place] [address] Phone [phone] Care Team Providers Care Tandem Mill Sticker Name Role Phone Cait Wyatt M.D. AUTM [phone] Problems Description No Information Available Social History [...] Available Procedures Date Code Description Status 10/25/2020 42824 Endoscopy Upper GI Gastrostomy T ube Completed 10/25/2020 50495 Upper Gastrointestinal Endoscopy W/Transendoscopic Needle Asp Completed 10/20/2020 17069 Endoscopy Upper GI Biopsy Comple [employer] Devices Description No Information Available Encounters Type Date Location Provider Dx Diagnosis Office Visit 10/29/2020 2:16a [facility] Surgical Services Raymundo Grullon DO Office Visit 10/26/2020 2:11a [facility] Surgical Services Adrian Son MD Office Visit 10/20/2020 3:10a [facility] Surgical Services Adrian monroe MD R10.13 Epigastric pain R11.14 Bilious vomiting Office Visit 10/19/2020 2:33a [facility] Surgical Services Adrian monroe MD R10.84 Generalized abdominal pain R11.14 Bilious vomiting Office Visit 10/19/2020 2:31a [facility] Neurology TROY Young R56.9 Unspecified convulsions Office Visit 10/18/2020 2:37a [facility] Surgical Services Adrian monroe MD R10.84 [...] Son MD 10/20/2020 Z98.84 Bariatric surgery status Ardian Son MD 10/20/2020 R11.14 Bilious vomiting Adrian carney MD 10/20/2020 R10.13 Epigastric pain Adrian Son MD 10/19/2020 R10.84 Generalized abdominal pain Edward Son MD 10/19/2020 R11.14 Bilious vomiting Adrian carney MD 10/19/2020 R56.9 Unspecified convulsions Carmen Samaniego TROY Gonzalez 10/18/2020 R10.84 Generalized abdominal pain Edward Son [...] symptoms.At one point patient was referred to [facility] for evaluation.It's unclear to me whether the patient had a full workup there or not.I do believe she was seen at least once.However, I understand that her insurance restrictions that preclude her from seeing the GI and bariatric specialist at [facility].Since I have been unable to establish a [...] pt for next steps 07/07/[address] [place] [address], [address] [place] [address] [phone]
--- OUTSIDE RECORDS SUMMARY | 2020-12-11 20:07 | CCD ---
Author Author [facility] Organization [facility] Address Unknown Phone Unavailable Care Team Providers Care Film Library Clerk Name Role Phone Cait Wyatt Unavailable PROBLEMS Type Condition ICD9-CM Code TQL54-SI Code Onset Dates Condition S tatus SNOMED Code Notes Problem On total parenteral nutrition (TPN) Z78.9 Acti ve 92171565 Problem Chronically on opiate therapy Z79.899 Active 12 3591316 Problem Gastroesophageal reflux disease without esophagitis K21.9 Active 419067615 Problem 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 Active 4389709 Problem S/P gastric bypass Z98.84 Active 238940383 Problem Gastroparesis K31.84 Active 973218275 Problem Depression with anxiety F41.8 Active 01898704 Problem Psychophysiological insomnia F51.04 Active 425 622241 Problem Adult failure to thrive R62.7 Active 90661868 1 Problem 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 Active 69 74011 Problem Staphylococcus epidermidis infection B95.7 Act lucia 443356014 Problem Other chronic pain G89.29 Active 56627299 Problem Short gut syndrome K91.2 Active 16827516 Problem 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 Acti ve 12826686 Problem Caloric malnutrition E46 Active 531288372 Problem Pulmonary nodules R91.8 Active 309641690 Problem Iron deficiency anemia due to chronic blood loss D 50.0 Active 282118076 Problem Lumbar post-laminectomy syndrome M96.1 Active 860143206 Problem Jejunostomy tube present Z93.4 Active 6870628 01 Problem Leukocytosis, unspecified type D72.829 Active 1 12832839 Problem Anemia, chronic disease D63.8 Active 37241057 6 Problem Single subsegmental pulmonary embolism without a cute cor pulmonale I26.93 Active 17550722 ALLERGIES Allergen (clinical drug ingredient) Drug/Non Drug Allergy do cumented on EMR Reaction Allergy Type Onset Date Status NSAIDS GI Bleed Non Drug Allergy Active TOMATOES Anaphylaxis Non Drug Allergy Active Sulfa (for allergy use only) Anaphylaxis Drug Allergy Active Levaquin Anaphylaxis Drug Allergy Active ENCOUNTERS from 1979 to 2020-11-16 Encounter Location Date Provider Diagnosis [address] [address] Oct, Cait Wyatt Intractable vomiting with nausea, unspec ified vomiting type R11.2 ; Other chronic pain G89.29 ; Unspecified abdominal pain R10.9 and Psychophysiological insomnia F51.04 IMMUNIZATIONS Vaccine Route Administration Date Status Influenza [...] Education Language: Question Answer Notes Languages spoken: Marshallese Orthodoxy: Question Answer Notes Orthodoxy 33 None Sexual Hx: Question Answer Notes [...] FOR REFERRAL No Information VITAL SIGNS Weight 176 lbs Oct, Height 66 in Oct, BMI 28.40 kg/m2 Oct, Heart Rate 121 /min Oct, Respiratory Rate 18 /min Oct, Temperature 97.5 degrees Fahrenheit Oct, Oximetry 97 Oct, Blood pressure systolic 110 mm Hg Oct, Blood pressure diastolic 70 mm Hg Oct, MEDICATIONS Medication SIG (Take, Route, Frequency, Duration) Notes Start Da te End Date Status Acetaminophen 500 MG 1 tablet as needed Orally every 6 hrs prn p ain Mar, Active Lovenox 100 MG/ML 100 mg Subcutaneous every 12 hours for 30 Days Mar, Active Oxycodone HCl 30 MG 1 ml as needed Orally every 6 hrs Active Nystatin 124868 UNIT/GM 1 application Externally Twice a day for 30 Days Dec, Active FLUoxetine HCl 20 MG/5ML 5 ml Orally Once a day for 30 day(s) Aug, Active May Have - Please dispense nebulizer, m ask, and tubing Use per medication instructions for 9999 days Jun, Activ e Albuterol Sulfate (2.5 MG/3ML) 0.083% 3 ml as needed I nhalation every 4 hours as needed for SOB Mar, Active HydrOXYzine HCl 25 MG 1 cap Orally every 6 hrs prn itching for 3 0 Days Sep, Active Zofran 4 MG/2ML 2 mg Intravenous BID prn n/v via PICC Active Sucralfate 1 GM/10ML 10 ml on an empty stomach Orally three times benjamin ly Active DiphenhydrAMINE HCl 50 MG/ML 50 mg subcutaneously Merary y as needed for severe nausea, via PICC line Mar, Active Sodium Chloride Flush 0.9 % as directed Intravenous vi a PICC inject 10 mLs into the vein as needed( for before and after infusion PRN) Active Protonix 40 MG 40 mg Intravenous twice a day via PICC Active Ondansetron HCl 4 MG 1 tablet Orally Once a day for 30 day(s) Oct, Active Heparin Lock Flush 100 UNIT/ML 500 units Intravenous Daily via P ICC line Mar, Active Infuvite Adult - 1 vial Intravenous via PICC before bedtime Mar, Active Ventolin HFA 108 (90 Base) MCG/ACT 1 puff as needed In halation every 6 hours prn SOB Mar, Active Promethazine HCl 25 mg 1 suppository as needed Rectal every 12 hrs for n/v Active Glucagon 3 MG/DOSE as directed subcutaneously Daily as needed Nov, Active Zolpidem Tartrate ER 12.5 MG 1 tablet at bedtime as ne eded Orally Once a day for 30 Days Oct, Active PROCEDURES No Information RESULTS No Results REASON FOR VISIT [facility] Follow-up, Reference #:[id number], last fill ambien 10 mg daily o n 10/20/2020 MEDICAL (GENERAL) HISTORY Type Description Date Medical [...] and abdominal pain - [facility], [place] Medical History Depression and anxiety Medical History Chronic iron deficiency anemia Medical History Protein S deficiency; previously on love nox Medical History History of thrombocytosis of central amina e Surgical History BACK SURGERY DR [facility] decompression leigh marissa 08/2013 Surgical History TONSILS [...] Hospitalization History Blood Transfusion 10/2018 Hospitalization History [facility] ED- Abdominal pain. 12/10/2018 Hospitalization History Septic Kidney infection 01/11-01/18 Hospitalization History levine infection 05/08 Hospitalization History levine infection 06/2019 Hospitalization History septic infection 10/2019 Hospitalization History wbc high, nausua vomiting 03/2020 Hospitalization History blood clot in lung 07/2020 Hospitalization History severe abd. pain 10/2020 Goals Section No Information Health Concerns No Information MEDICAL EQUIPMENT No Information MENTAL STATUS No Information FUNCTIONAL STATUS No Information ASSESSMENTS Encounter Date Diagnosis Assessment Notes Treatment Notes Treatm ent Clinical Notes Oct, Intractable vomiting with na usea, unspecified vomiting type (ICD-10 - R11.2) Uses SL or IV zofran depending on her ability to tolerate PO; refill sent. States multiple doctors have told her that there is nothing else that can be done for her symptoms other than medications for symptom management. She does not want to travel to [facility] by herself to see a specialist; I recommended that she see if they can do a virtual consultation. Oct, Other chronic pain (ICD-10 - G89.29) Chronic abdominal pain is managed with oxycodone by Palliative Care. Oct, Unspecified abdominal pain (ICD-10 - R10.9) Oct, Psychophysiological insomnia (ICD-10 - F51.04) She has issues with absorbing medications taken via her Jtube; she feels zolpidem was more effective when she was on Zolpidem ER 12.5 mg in the past, so this was restarted. PLAN OF TREATMENT Medication Medication Name Sig Start Date Stop Date Zolpidem Tartrate ER 12.5 MG 1 tablet at bedtime as ne eded Orally Once a day for 30 Days Oct, Ondansetron HCl 4 MG 1 tablet Orally Once a day for 30 day(s) Oct, Oxycodone HCl 30 MG 1 ml as needed Orally every 6 hrs Treatment Notes Assessment Notes Clinical Notes Intractable vomiting with nausea, unspecified vomiting type Uses SL or IV zofran depending on her ability to tolerate PO; refill sent. States multiple doctors have told her that there is nothing else that can be done for her symptoms other than medications for symptom management. She does not want to travel to [facility] by herself to see a specialist; I recommended that she see if they can do a virtual consultation. Other chronic pain Chronic abdominal pa in is managed with oxycodone by Palliative Care. Psychophysiological insomnia She has iss ues with absorbing medications taken via her Jtube; she feels zolpidem was more effective when she was on Zolpidem ER 12.5 mg in the past, so this was restarted. Next Appt Details 3 months Reason:F/u med prob Provider Name:Cait Leigh Carlos Albertoderrick, 2021-02-14 10:00:00 AM, [address] [place], [address], Follow Up:3 monthsF/u med prob Insurance Providers Payer Name Payer Address Payer Phone Insured Name Patient Relati onship to Insured Coverage Start Date Coverage End Date [facility] [address] [facility] [id number] Obi [place]
--- OUTSIDE RECORDS SUMMARY | 2020-12-11 20:07 | CCD | Continuity of Care Document ---
Author Author Claude SON MD Organization Unknown Address [address], [address] [place] [address] Phone [phone] Care Team Providers Care Mortgage Banker Name Role Phone Cait Wyatt M.D. AUTM [phone] Problems Description No Information Available Social History [...] Available Procedures Date Code Description Status 10/25/2020 31298 Endoscopy Upper GI Gastrostomy T ube Completed 10/25/2020 44507 Upper Gastrointestinal Endoscopy W/Transendoscopic Needle Asp Completed 10/20/2020 29505 Endoscopy Upper GI Biopsy Comple romario Medical Devices Description No Information Available Encounters Type Date Location Provider Dx Diagnosis Office Visit 10/29/2020 2:16a [facility] Surgical Services Raymundo Grullon DO Office Visit 10/26/2020 2:11a [facility] Adrian Son MD Office Visit 10/20/2020 3:10a [facility] Surgical Services Adrian monroe MD R10.13 Epigastric pain R11.14 Bilious vomiting Office Visit 10/19/2020 2:31a [facility] Neurology TROY Young R56.9 Unspecified convulsions Office Visit 10/18/2020 2:37a [facility] Surgical Services Adrian monroe MD R10.84 Generalized [...] symptoms.At one point patient was referred to [facility] for evaluation.It's unclear to me whether the patient had a full workup there or not.I do believe she was seen at least once.However, I understand that her insurance restrictions that preclude her from seeing the GI and bariatric specialist at [facility].Since I have been unable to establish [...] pt for next steps 07/07/20 Closed [address] [place] [address], [address] [place] [address] [phone]
--- OUTSIDE RECORDS SUMMARY | 2020-12-11 20:07 | CCD ---
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 Active 3036590 Problem On total parenteral nutrition (TPN) Z78.9 Acti ve 92430627 Problem Gastroparesis K31.84 Active 109558152 Problem Gastroesophageal reflux disease without esophagitis K21.9 Active 024465121 Problem Psychophysiological insomnia F51.04 Active 425 974096 Problem S/P gastric bypass Z98.84 Active 198472954 Problem Short gut syndrome K91.2 Active 21233109 Problem Adult failure to thrive R62.7 Active 96708964 1 Problem 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 Active 69 43481 Problem Single subsegmental pulmonary embolism without a cute cor pulmonale I26.93 Active 40552403 Problem Pulmonary nodules R91.8 Active 696934701 Problem Iron deficiency anemia due to chronic blood loss D 50.0 Active 892272155 Problem Caloric malnutrition E46 Active 043931352 Problem Depression with anxiety F41.8 Active 78242957 Problem 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 Acti ve 23119684 Problem Staphylococcus epidermidis infection B95.7 Act lucia 627512705 Problem Jejunostomy tube present Z93.4 Active 1924976 01 Problem Leukocytosis, unspecified type D72.829 Active 1 98751593 Problem Anemia, chronic disease D63.8 Active 74459208 6 ALLERGIES Allergen (clinical drug ingredient) Drug/Non Drug Allergy do cumented on EMR Reaction Allergy Type Onset Date Status NSAIDS GI Bleed Non Drug Allergy Active TOMATOES Anaphylaxis Non Drug Allergy Active Sulfa (for allergy use only) Anaphylaxis Drug Allergy Active Levaquin Anaphylaxis Drug Allergy Active ENCOUNTERS from 1979 to 2020-11-09 Encounter Location Date Provider Diagnosis [address] [place] [address] Oct, Cait Wyatt Pre-op evaluation Z01.818 ; Caloric maln utrition E46 ; Tachycardia R00.0 ; Skin candidiasis B37.2 ; Jejunostomy tube present Z93.4 and 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 IMMUNIZATIONS Vaccine Route Administration Date Status Influenza [...] Education Language: Question Answer Notes Languages spoken: Bulgarian Advent: Question Answer Notes Advent 33 None Sexual Hx: Question Answer Notes [...] FOR REFERRAL No Information VITAL SIGNS Weight 182 lbs Oct, Height 66 in Oct, BMI 29.37 kg/m2 Oct, Heart Rate 120 /min Oct, Respiratory Rate 20 /min Oct, Temperature 96.1 degrees Fahrenheit Oct, Oximetry 99 Oct, Blood pressure systolic 112 mm Hg Oct, Blood pressure diastolic 70 [...] hours for 30 Days Mar, Active Nystatin 943118 UNIT/GM 1 application Externally Twice a day for 30 Days Dec, Active FLUoxetine HCl 20 MG/5ML 5 ml Orally Once a day for 30 day(s) Aug, Active May Have - Please dispense nebulizer, m ask, and tubing Use per medication instructions for 9998 Jun, Activ e Glucagon 3 MG/DOSE as [...] Information RESULTS No Results REASON FOR VISIT Preop clearance for Levine catheter replacement at [facility] by Dr. Dash on 11/10; surgeons fax [phone]; diagnosis code E46 MEDICAL (GENERAL) HISTORY Type Description Date Medical [...] abdominal pain - Pallia tive Care, [place] Medical History Depression and anxiety Medical History [...] Hospitalization History G tube infection 7 days 07-31- Hospitalization History Blood Transfusion 10/2018 Hospitalization History [facility] ED- Abdominal pain. 12/10/2018 Hospitalization History Septic [...] Treatment Notes Treatm ent Clinical Notes Oct, Pre-op evaluation (ICD-10 - Z01.818) I discussed the risks vs. benefits of surgery with the patient in generic terms. I feel that the patient is at low risk for perioperative complications. The patient knows that there is always some risk with surgery and that each individual has to make a decision regarding whether the benefits of surgery outweigh the risks in order to proceed. I advised the patient to direct further questions regarding the specifics of the proposed surgical procedure and specific risks to the surgeon. At this time I feel that the patient's acute and chronic medical conditions are sufficiently optimized to proceed with surgery. - Hold lovenox starting tonight, hold tomorrow, restart lovenox in the AM of 09/11 - Continue all other medications in the perioperative period. Oct, Caloric malnutrition (ICD-10 - E46) Oct, Tachycardia (ICD-10 - R00.0) Patient has tachycardia at baseline; may have some contribution of dehydration due to not being able to take TPN. I encouraged as much hydration by mouth and Jtube as she is able to tolerate. Oct, Skin candidiasis (ICD-10 - B37.2) Noted around Jtube, nystatin cream refilled as this worked well in the past for her. Oct, Jejunostomy tube present (ICD-10 - Z93.4) Oct, Protein S deficiency (ICD-10 - D68.59) PLAN OF TREATMENT Medication Medication Name Sig Start Date Stop Date Nystatin 231104 UNIT/GM 1 application Externally Twice a day for 30 Days Dec, Treatment Notes Assessment Notes Clinical Notes Pre-op evaluation I discussed the risk s vs. benefits of surgery with the patient in generic terms. I feel that the patient is at low risk for perioperative complications. The patient knows that there is always some risk with surgery and that each individual has to make a decision regarding whether the benefits of surgery outweigh the risks in order to proceed. I advised the patient to direct further questions regarding the specifics of the proposed surgical procedure and specific risks to the surgeon. At this time I feel that the patient's acute and chronic medical conditions are sufficiently optimized to proceed with surgery.- Hold lovenox starting tonight, hold tomorrow, restart lovenox in the AM of 09/11- Continue all other medications in the perioperative period. Tachycardia Patient has tachycar jannette at baseline; may have some contribution of dehydration due to not being able to take TPN. I encouraged as much hydration by mouth and Jtube as she is able to tolerate. Skin candidiasis Noted around Jtube, nystatin cream refilled as this worked well in the past for her. Future Test Test Name Order Date CBC - Complete Blood Count [id number] Comprehensive Metabolic Profile (CMP) [id number] Next Appt Details as sched Reason: Provider Name:Cait Wyatt, 2020-11-14 11:15:00 AM, [address] [place], [address], Insurance Providers Payer Name Payer Address Payer Phone Insured Name Patient Relati onship to Insured Coverage Start Date Coverage End Date [facility] [address] [facility] [id number] Obi [place]
--- OUTSIDE RECORDS SUMMARY | 2020-12-11 20:07 | CCD | Continuity of Care Document ---
Author Author Claude SON MD Organization Unknown Address [address], [address] [place] [address] Phone [phone] Care Team Providers Care Insulation Mechanic Name Role Phone Cait Wyatt M.D. AUTM [phone] Problems Description No Information Available Social History [...] % Results Description No Information Available Procedures Description No Information Available Medical Devices Description No Information Available Encounters Type Date Location Provider Dx Diagnosis Office Visit 10/26/2020 2:11a [facility] Surgical Services Adrian Son MD Office Visit 10/20/2020 3:10a [facility] Surgical Services Adrian monroe MD R10.13 Epigastric pain R11.14 Bilious vomiting Office Visit 10/19/2020 2:31a [facility] Neurology TROY Young R56.9 Unspecified convulsions Office Visit 10/18/2020 2:37a [facility] Surgical Services Adrian monroe MD R10.84 Generalized abdominal pain R11.14 Bilious vomiting Assessments Date Code Description Provider 11/11/2020 R10.84 Generalized abdominal pain Edward Son MD 11/11/2020 R11.14 Bilious vomiting Adrian carney MD 10/20/2020 R10.13 Epigastric pain Adrian Son MD 10/20/2020 R11.14 Bilious vomiting Adrian carney MD 10/19/2020 R10.84 Generalized abdominal pain Edward [...] symptoms.At one point patient was referred to [facility] for evaluation.It's unclear to me whether the patient had a full workup there or not.I do believe she was seen at least once.However, I understand that her insurance restrictions that preclude her from seeing the GI and bariatric specialist at [facility].Since I have been unable to establish [...] pt for next steps 07/07/20 [address]osed [address] [place] [address], [address] [place] [address] [phone]
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
--- OUTSIDE RECORDS SUMMARY | 2020-12-11 20:07 | CCD | Continuity of Care Document ---
Author Author Claude HOLDEN DO Organization Unknown Address [address], [address] [place] [address] Phone [phone] Care Team Providers Care Conference Interpreter Name Role Phone Cait Wyatt M.D. [facility] [phone] Problems Description No Information Available Social History [...] Provider Dx Diagnosis Office Visit 10/29/2020 2:16a [facility] [address] Surgical Services Raymundo Holden DO Office Visit 10/26/2020 2:11a [facility] [address] Surgical Services Adrian Hernandez MD Office Visit 10/20/2020 3:10a [facility] [address] Surgical Services Adrian monroe MD R10.13 Epigastric pain R11.14 Bilious vomiting Office Visit 10/19/2020 2:31a [facility] [address] Neurology TROY Young R56.9 Unspecified convulsions Office Visit 10/18/2020 2:37a [facility] [address] Surgical Services Adrian monroe MD R10.84 Generalized abdominal pain R11.14 Bilious vomiting Assessments Date Code Description Provider 11/11/2020 R10.84 Generalized abdominal pain Edward Hernandez MD 11/11/2020 R11.14 Bilious vomiting Adrian carney MD 10/20/2020 R10.13 Epigastric pain Adrian Hernandez MD 10/20/2020 R11.14 Bilious vomiting Adrian carney MD 10/19/2020 R10.84 Generalized abdominal pain Edward Hernandez MD 10/19/2020 R11.14 Bilious vomiting Adrian carney MD 10/19/2020 R56.9 Unspecified convulsions TROY Pulliam 10/18/2020 R10.84 Generalized abdominal pain Edward Hernandez MD 10/18/2020 R11.14 Bilious vomiting Adrian carney MD Plan of Treatment 11/11/2020 - Adrian Hernandez MD* R10.84 Generalized abdominal pain* Comments: * [...] symptoms.At one point patient was referred to [facility] for evaluation.It's unclear to me whether the patient had a full workup there or not.I do believe she was seen at least once.However, I understand that her insurance restrictions that preclude her from seeing the GI and bariatric specialist at [facility].Since I have been unable to establish [...] pt for next steps 07/07/20 [address] [place] [address], [address] [place] [address] [phone]
--- OUTSIDE RECORDS SUMMARY | 2020-12-11 20:07 | CCD | Continuity of Care Document ---
Author Author Claude SON MD Organization Unknown Address [address], [address] [place] [address] Phone [phone] Care Team Providers Care Social Work Assistant Name Role Phone Cait Wyatt M.D. [facility] [phone] Problems Description No Information Available Social History [...] Date Location Provider Dx Diagnosis Office Visit 10/20/2020 3:10a [facility] Surgical Services Adrian monroe MD R10.13 Epigastric pain R11.14 Bilious vomiting Office Visit 10/19/2020 2:31a [facility] Neurology TROY Young R56.9 Unspecified convulsions Office Visit 10/18/2020 2:37a [facility] Surgical Services Adrian monroe MD R10.84 [...] symptoms.At one point patient was referred to [facility] for evaluation.It's unclear to me whether the patient had a full workup there or not.I do believe she was seen at least once.However, I understand that her insurance restrictions that preclude her from seeing the GI and bariatric specialist at [facility].Since I have been unable to establish [...] Description No Information Available Referrals Refer to Dr Reason for Referral Status Appt Date Thong Castañeda MD BARIATRIC PROGRAM -had gastr ic bypass reversal and j tube by Dr Mcgovern /follow with Dr Bergman has heartburn and regurgitation LVM for pt for next steps 06/29/20 LVM for pt for next steps 07/07/20 Closed [address] [place] [address], [address] [place] [id number] [phone]
--- OUTSIDE RECORDS SUMMARY | 2020-12-11 20:07 | CCD ---
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 Active 7403166 Problem S/P gastric bypass Z98.84 Active 756484984 Problem Gastroparesis K31.84 Active 335496558 Problem Depression with anxiety F41.8 Active 58869127 Problem Psychophysiological insomnia F51.04 Active 425 236016 Problem Adult failure to thrive R62.7 Active 20285695 1 Problem 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 Active 69 58437 Problem Staphylococcus epidermidis infection B95.7 Act lucia 518067112 Problem Other chronic pain G89.29 Active 45149880 Problem Short gut syndrome K91.2 Active 63329150 Problem 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 Acti ve 32633643 Problem Caloric malnutrition E46 Active 182139603 Problem Pulmonary nodules R91.8 Active 482642366 Problem Iron deficiency anemia due to chronic blood loss D 50.0 Active 446062357 Problem Lumbar post-laminectomy syndrome M96.1 Active 359996089 Problem Jejunostomy tube present Z93.4 Active 7478743 01 Problem Leukocytosis, unspecified type D72.829 Active 1 28359088 Problem Anemia, chronic disease D63.8 Active 92356236 6 Problem Single subsegmental pulmonary embolism without a cute cor pulmonale I26.93 Active 37303221 ALLERGIES Allergen (clinical drug ingredient) Drug/Non Drug Allergy do cumented on EMR Reaction Allergy Type Onset Date Status NSAIDS GI Bleed Non Drug Allergy Active TOMATOES Anaphylaxis Non Drug Allergy Active Sulfa (for allergy use only) Anaphylaxis Drug Allergy Active Levaquin Anaphylaxis Drug Allergy Active ENCOUNTERS from 1979 to 2020-11-19 Encounter Location Date Provider Diagnosis [address] [id number] Oct, Cait Wyatt IMMUNIZATIONS Vaccine Route Administration [...] Education Language: Question Answer Notes Languages spoken: Tajik Baptism: Question Answer Notes Baptism 33 None Sexual Hx: Question Answer Notes [...] needed Orally every 6 hrs Active Nystatin 928128 UNIT/GM 1 application Externally Twice a day [...] Information RESULTS No Results REASON FOR VISIT order for blood cultures MEDICAL (GENERAL) HISTORY Type Description Date Medical History [facility]; short gut syndrome, gastroparesis, GERD - Dr. Bergman and Dr. Mcgovern Medical History Failure to thrive, on chroni c TPN; has Jtube but not absorbing, using for meds only Medical History History of serratia central line infecti on - prev saw Dr. Orozco Medical History Chronic back and abdominal pain - [facility] [place] Medical History Depression and anxiety Medical History [...] ml as needed Orally every 6 hrs Next Appt Details Provider Name:Cait Wyatt, 2020-11-21 08:45:00 AM, [address] [place] [address], [phone], Provider Name:Cait Wyatt, 2021-02-14 10:00:00 AM, [address] [place] [address], [phone], Insurance Providers Payer Name Payer Address Payer Phone Insured Name Patient Relati onship to Insured Coverage Start Date Coverage End Date [facility] [address] [facility] [id number] [place]
--- OUTSIDE RECORDS SUMMARY | 2020-12-11 20:13 | CCD ---
Author Author [facility] Organization [facility] Address Unknown Phone Unavailable Care Team Providers Care Quality Associate Name Role Phone SONYA DURANT Unavailable Unavailable SONYA DURANT Unavailable Unavailable Renuka, Aden Kim MD Unavailable [...] Unavailable Renuka, A Julio LAKHANI Unavailable Unavailable Renkua, A Julio LAKHANI Unavailable Unavailable Renuka, A [...] Unavailable Renuka, Aden Kim MD Unavailable Unavailable Goldiner, Lev Unavailable Unavailable Goldiner, [...] Unavailable Unavailable Thong Castañeda MD Unavailable Unavailable Thogn Castañeda MD Unavailable Unavailable Thong Castañeda MD [...] Unavailable Unavailable Thong Castañeda MD Unavailable Unavailable Samuel Pham MD Unavailable Unavailable Samuel Pham MD Unavailable Unavailable Samuel Pham MD Unavailable Unavailable Samuel Pham MD Unavailable Unavailable De Samuel Maria MD Unavailable Unavailable De Samuel Maria MD Unavailable Unavailable De Samuel Maria MD Unavailable Unavailable De Samuel Maria MD Unavailable Unavailable De Samuel aMria MD Unavailable Unavailable De Samuel Maria MD [...] Unavailable Unavailable Samuel Pham MD Unavailable Unavailable PHYSICIAN, PHYSICIAN ER Unavailable Unavailable Dinesh Sorenson Unavailable Unavailable Dinesh Sorenson Unavailable Unavailable Dinesh Sorenson Unavailable Unavailable Yas Dinesh Unavailable Unavailable Yas Dinesh Unavailable Unavailable Henning-Frank, Dinesh Unavailable Unavailable Henning-Frank, Dinesh Unavailable Unavailable Henning-Frank, Dinesh Unavailable Unavailable Henning-Frank, Dinesh Unavailable Unavailable Henning-Frank, Dinesh Unavailable Unavailable Henning-Frank, Dinesh Unavailable Unavailable Henning-Frank, Dinesh Unavailable Unavailable Bradshaw, Angelica SEWER PIPE PRESS OPERATOR Unavailable Unavailable Bradshaw, Angelica SEWER PIPE PRESS OPERATOR Unavailable Unavailable Bradshaw, Angelica SEWER PIPE PRESS OPERATOR Unavailable Unavailable Bradshaw, Angelica SEWER PIPE PRESS OPERATOR Unavailable Unavailable Bradshaw, Angelica SEWER PIPE PRESS OPERATOR Unavailable Unavailable Bradshaw, Angelica SEWER PIPE PRESS OPERATOR Unavailable Unavailable Bradshaw, Angelica SEWER PIPE PRESS OPERATOR Unavailable Unavailable Bradshaw, Angelica SEWER PIPE PRESS OPERATOR Unavailable Unavailable Bradshaw, Angelica SEWER PIPE PRESS OPERATOR Unavailable Unavailable Bradshaw, Angelica SEWER PIPE PRESS OPERATOR Unavailable Unavailable Bradshaw, Angelica SEWER PIPE PRESS OPERATOR Unavailable Unavailable Yina NORIEGA MD Unavailable Unavailable [...] Unavailable Unavailable Aden LEROY MD Unavailable Unavailable Aden ADAMS Unavailable Unavailable Samuel Pham MD Unavailable Unavailable [...] CrowSamuel MD Unavailable Unavailable De CrowSamuel carney Adrian MD Unavailable Unavailable De CrowSamuel MD Unavailable [...] Unavailable Pham, Samuel Campbell MD Unavailable Unavailable ZAKARIYYA, SCOTT LAKHANI Unavailable [...] Unavailable ZAKARIYYA, SCOTT MD Unavailable Unavailable ZAKARIYYA, SCOTT MD Unavailable Unavailable ZAKARIYYA, SCOTT MD Unavailable Unavailable ZAKARIYYA, SCOTT LAKHANI Unavailable Unavailable ZAKARIYYA, SCOTT MD Unavailable Unavailable ZAKARIYYA, SCOTT LAKHANI Unavailable Unavailable ZAKARIYYA, SCOTT MD Unavailable Unavailable ZAKARIYYA, HASMATHEUS MD Unavailable Unavailable ZAKARIYYA, SCOTT MD Unavailable Unavailable ZAKARIYYA, SCOTT MD Unavailable Unavailable ZAKARIYYA, SCOTT LAKHANI Unavailable Unavailable ZAKARIYYA, SCOTT MD Unavailable Unavailable ZAKARIYYA, SCOTT MD Unavailable Unavailable ZAKARIYYA, SCOTT LAKHANI Unavailable Unavailable ZAKARIYYA, SCOTT MD Unavailable Unavailable ZAKARIYYA, SCOTT LAKHANI Unavailable Unavailable ZAKARIYYA, SCOTT LAKHANI Unavailable Unavailable ZAKARIYYA, SCOTT LAKHANI Unavailable Unavailable ZAKARIYYA, SCOTT LAKHANI Unavailable Unavailable Alessandro AKINS JR . Unavailable Unavailable CARLEEN LAKHANI, SONYA Unavailable [facility]available [facility] Unavailable Unavailable Kiki HALL MD Unavailable Unavailable [...] Unavailable Unavailable Kiki HALL MD Unavailable Unavailable Irene Block MD Unavailable Unavailable Irene Block MD Unavailable Unavailable Irene Block MD Unavailable Unavailable Irene Block MD Unavailable Unavailable Irene Block MD Unavailable Unavailable Block, Sumendra MD Unavailable [...] Unavailable Unavailable JOSE GILLIS MD Unavailable Unavailable Moreno, Adria Leon MD [...] Unavailable Moreno, Adria Leon MD Unavailable Unavailable Yina SIMMONS MD Unavailable [...] Unavailable Unavailable Yina SIMMONS MD Unavailable Unavailable RAY, Yina MARIE MD [...] MD Unavailable Unavailable RAYYina MD Unavailable Unavailable Swatsworth, A Mikey PA [...] Unavailable Unavailable Yina Escamilla MD Unavailable Unavailable EbenezerCarmen june PA-C Unavailable Unavailable Ebenezer, J Tawanda PA-C Unavailable Unavailable Ebenezer, Carmen Tawanda PA-C Unavailable Unavailable Ebenezer, Carmen Tawanda PA-C Unavailable Unavailable Ebenezer, Carmen Tawanda PA-C Unavailable Unavailable Ebenezer, Carmen Tawanda PA-C Unavailable Unavailable Ebenezer, Carmen Tawanda PA-C Unavailable Unavailable Ebenezer, Carmne Tawanda PA-C Unavailable Unavailable Ebenezer, Carmen Tawanda PA-C Unavailable Unavailable Ebenezer, Carmen Tawanda PA-C Unavailable Unavailable Ebenezer, J Tawanda PA-C Unavailable Unavailable Skipton, E Cait MD Unavailable [...] E Cait MD Unavailable Unavailable Skipton, E Acit MD Unavailable Unavailable Skipton, E Cait MD [...] Unavailable Skipton, E Cait MD Unavailable Unavailable Pinkhasov, M Michael MD [...] Unavailable Unavailable FLYNN-GINGER, ARLETTE DO Unavailable Unavailable NAVIN, M RITA DO Unavailable Unavailable NAVIN, M RITA DO Unavailable Unavailable NAVIN, M RITA DO Unavailable Unavailable NAVIN, M RITA DO Unavailable Unavailable NAVIN, M RITA DO Unavailable Unavailable NAVIN, M RITA DO Unavailable Unavailable NAVIN, M RITA DO Unavailable Unavailable NAVIN, M RITA DO Unavailable Unavailable NAVIN, M RITA DO Unavailable Unavailable NAVIN, M RITA DO Unavailable Unavailable NAVIN, M RITA DO Unavailable Unavailable NAVIN, M RITA DO Unavailable Unavailable NAVIN, M RITA DO Unavailable Unavailable NAVIN, M RITA DO Unavailable Unavailable NAVIN, M RITA DO Unavailable Unavailable NAVIN, M RITA DO Unavailable Unavailable NAVIN, M RITA DO Unavailable Unavailable NAVIN, M RITA DO Unavailable Unavailable NAVIN, M RITA DO Unavailable Unavailable NAVIN, M RITA DO Unavailable Unavailable NAVIN, M RITA DO Unavailable Unavailable NAVIN, M RITA DO Unavailable Unavailable NAVIN, M RITA DO Unavailable Unavailable NAVIN, M RITA DO Unavailable Unavailable NAVIN, M RITA DO Unavailable Unavailable NAVIN, M RITA DO Unavailable Unavailable NAVIN, M RITA DO Unavailable Unavailable NAVIN, M RITA DO Unavailable Unavailable NAVIN, M RITA DO Unavailable Unavailable NAVIN, M RITA DO Unavailable Unavailable NAVIN, M RITA DO Unavailable Unavailable NAVIN, M RITA DO Unavailable Unavailable NAVIN, M RITA DO Unavailable Unavailable NAVIN, M RITA DO Unavailable Unavailable NAVIN, M RITA DO Unavailable Unavailable NAVIN, M RITA DO Unavailable Unavailable NAVIN, M RITA DO Unavailable Unavailable NAVIN, M RITA DO Unavailable Unavailable NAVIN, M RITA DO Unavailable Unavailable NAVIN, M RITA DO Unavailable Unavailable NAVIN, M RITA DO Unavailable Unavailable NAVIN, M RITA DO Unavailable Unavailable NAVIN, M RITA DO Unavailable Unavailable NAVIN, M RITA DO Unavailable Unavailable NAVIN, M RITA DO Unavailable Unavailable NAVIN, M RITA DO Unavailable Unavailable NAVIN, M RITA DO Unavailable Unavailable NAVIN, M RITA DO Unavailable Unavailable NAVIN, M RITA DO Unavailable Unavailable NAVIN, M RITA DO Unavailable Unavailable NAVIN, M RITA DO Unavailable Unavailable NAVIN, M RITA DO Unavailable Unavailable NAVIN, M RITA DO Unavailable Unavailable NAVIN, M RITA DO Unavailable Unavailable NAVIN, M RITA DO Unavailable Unavailable NAVIN, M RITA DO Unavailable Unavailable NAVIN, M RITA DO Unavailable Unavailable NAVIN, M RITA DO Unavailable Unavailable NAVIN, M RITA DO Unavailable Unavailable NAVIN, M RITA DO Unavailable Unavailable NAVIN, M RITA DO Unavailable Unavailable NAVIN, M RITA DO Unavailable Unavailable NAVIN, M RITA DO Unavailable Unavailable NAVIN, M RITA DO Unavailable Unavailable NAVNI, M RITA DO Unavailable Unavailable NAVIN, M RITA DO Unavailable Unavailable NAVIN, M RITA DO Unavailable Unavailable NAVIN, M RITA DO Unavailable Unavailable XIAO SAWYER MD Unavailable [...] Unavailable Unavailable Gwilt, T Michelle Unavailable Unavailable SITA, Melissa JAMESE ELPIDIO PA-C Unavailable Unavailable SITA, L JAMES ELPIDIO PA-C Unavailable Unavailable TURRIN, SANFORD Unavailable Unavailable TURRIN, SANFORD Unavailable Unavailable TURRIN, SANFORD Unavailable Unavailable TURRIN, SANFORD Unavailable Unavailable Yina CHAIDEZ MD Unavailable Unavailable [...] Yarelis Unavailable Unavailable Blanchard, Yarelis Unavailable Unavailable Varki, M Mich Unavailable Unavailable Varki, M Mich Unavailable Unavailable Varki, M Mich Unavailable Unavailable Varki, M Mich Unavailable Unavailable Varki, M Mich Unavailable Unavailable Varki, M Mich Unavailable Unavailable Varki, M Mich Unavailable Unavailable Varki, M Mich Unavailable Unavailable Varki, M Mich Unavailable Unavailable Varki, M Mich Unavailable Unavailable Varki, M Mich Unavailable Unavailable Varki, M Mich Unavailable Unavailable Varki, M Mich Unavailable Unavailable Varki, M Mich Unavailable Unavailable Varki, M Mich Unavailable Unavailable Varki, M Mich Unavailable Unavailable Varki, M Mich Unavailable Unavailable Varki, M Mich Unavailable Unavailable Varki, M Mich Unavailable Unavailable Varki, M Mich Unavailable Unavailable Varki, M Mich Unavailable Unavailable Varki, M Mich Unavailable Unavailable Alessandro SANDOVAL Unavailable Unavailable Samuel Pham MD Unavailable Unavailable Samuel Pham MD Unavailable Unavailable Samuel Pham MD Unavailable Unavailable De Crow, Samuel Campbell MD Unavailable Unavailable Samuel Pham MD Unavailable Unavailable De CrowSamuel carney MD Unavailable Unavailable Samuel Pham MD Unavailable [...] Unavailable Samuel Pham MD Unavailable Unavailable De Saumel Maria MD Unavailable Unavailable De Samuel Maria MD Unavailable Unavailable De CrowSamuel carney MD Unavailable Unavailable Samuel Pham MD Unavailable Unavailable Samuel Pham MD Unavailable Unavailable De CrowSamuel acrney MD Unavailable Unavailable De CrowSamuel carney MD [...] De Crow, Samuel Campbell MD Unavailable Unavailable GARZA, L MOISES MD [...] Unavailable GARZA, L MOISES MD Unavailable Unavailable STUARTS DRAFT, L MOISES MD Unavailable Unavailable STUARTS DRAFT, L MOISES MD Unavailable Unavailable STUARTS DRAFT, L MOISES MD Unavailable Unavailable STUARTS DRAFT, L MOISES MD Unavailable Unavailable STUARTS DRAFT, L MOISES MD Unavailable Unavailable STUARTS DRAFT, L MOISES MD Unavailable Unavailable STUARTS DRAFT, L MOISES MD Unavailable Unavailable STUARTS DRAFT, L MOISES MD Unavailable Unavailable STUARTS DRAFT, L MOISES MD Unavailable Unavailable GARZA, L MOISES MD Unavailable Unavailable STUARTS DRAFT, L MOISES MD Unavailable Unavailable STUARTS DRAFT, L MOISES MD Unavailable Unavailable STUARTS DRAFT, L MOISES MD Unavailable Unavailable GARZA, L MOISES MD Unavailable Unavailable GARZA, L MOISES MD Unavailable Unavailable STUARTS DRAFT, L MOISES MD Unavailable Unavailable STUARTS DRAFT, L MOISES MD Unavailable Unavailable STUARTS DRAFT, L MOISES MD Unavailable Unavailable STUARTS DRAFT, L MOISES MD Unavailable Unavailable STUARTS DRAFT, L MOISES MD Unavailable Unavailable STUARTS DRAFT, L MOISES MD Unavailable Unavailable GARZA, L MOISES MD Unavailable Unavailable GARZA, L MOISES MD Unavailable Unavailable STUARTS DRAFT, L MOISES MD Unavailable Unavailable STUARTS DRAFT, L MOISES MD Unavailable Unavailable GARZA, L [...] Unavailable GARZA, L MOISES MD Unavailable Unavailable STUARTS DRAFT, L MOISES MD Unavailable Unavailable GARZA, L MOISES MD Unavailable Unavailable GARZA, L MOISES MD Unavailable Unavailable GARZA, L MOISES MD Unavailable Unavailable STUARTS DRAFT, Melissa DE LEON MD Unavailable Unavailable GARZA, Melissa DE LEON MD Unavailable Unavailable GARZA, Melissa DE LEON MD Unavailable Unavailable GARZA, Melissa DE LEON MD Unavailable Unavailable GARZA, L MOISES LAKHANI Unavailable Unavailable GARZA, L MOISES LAKHANI Unavailable Unavailable GARZA, Melissa DE LEON MD Unavailable Unavailable GARZA, Melissa DE LEON MD Unavailable Unavailable GARZA, L MOISES LAKHANI Unavailable Unavailable GARZA, L MOISES LAKHANI Unavailable Unavailable GARZA, L MOISES LAKHANI Unavailable Unavailable GARZA, L MOISES LAKHANI Unavailable Unavailable GARZA, L MOISES LAKHANI Unavailable Unavailable GARZA, L MOISES LAKHANI Unavailable Unavailable GARZA, L MOISES LAKHANI Unavailable Unavailable GARZA, Melissa DE LEON MD [...] Unavailable RAY, Yina MARIE MD Unavailable Unavailable LORENAPrashant MD Unavailable Unavailable LORENA, Prashant FELIX MD [...] Unavailable LORENA, R ISIDRO MD Unavailable Unavailable LROENA, R ISIDRO MD Unavailable Unavailable LORENA, R [...] Cait MD Unavailable Unavailable HANH, A JOHNATHON LAKHANI Unavailable Unavailable HANH, A JOHNATHON LAKHANI Unavailable Unavailable HANH, A JOHNATHON LAKHANI Unavailable Unavailable HANH, A JOHNATHON LAKHANI Unavailable Unavailable HANH, A JOHNATHON LAKHANI Unavailable Unavailable HANH, A JOHNATHON LAKHANI Unavailable Unavailable HANH, A JOHNATHON LAKHANI Unavailable Unavailable HANH, A JOHNATHON LAKHANI Unavailable Unavailable HANH, A JOHNATHON LAKHANI Unavailable Unavailable HANH, A JOHNATHON LAKHANI Unavailable Unavailable HANH, A JOHNATHON LAKHANI Unavailable Unavailable HANH, A JOHNATHON LAKHANI Unavailable Unavailable HANH, A JOHNATHON LAKHANI Unavailable Unavailable HANH, A JOHNATHON LAKHANI Unavailable Unavailable HANH, A JOHNATHON LAKHANI Unavailable Unavailable HANH, A JOHNATHON LAKHANI Unavailable Unavailable HANH, A JOHNATHON LAKHANI Unavailable Unavailable HANH, A JOHNATHON LAKHANI Unavailable Unavailable HANH, A JOHNATHON LAKHANI Unavailable Unavailable HANH, A JOHNATHON LAKHANI Unavailable Unavailable HANH, A JOHNATHON LAKHANI Unavailable Unavailable HANH, A JOHNATHON LAKHANI Unavailable Unavailable HANH, A JOHNATHON LAKHANI Unavailable Unavailable HANH, A JOHNATHON LAKHANI Unavailable Unavailable HANH, A JOHNATHON LAKHANI Unavailable Unavailable HANH, A JOHNATHON LAKHANI Unavailable Unavailable HANH, A JOHNATHON LAKHANI Unavailable Unavailable HANH, A JOHNATHON LAKHANI Unavailable [...] HANH, A JOHNATHON LAKHANI Unavailable Unavailable HANH, A JOHNATHON LAKHANI Unavailable Unavailable HANH, Aden DIEGO MD Unavailable Unavailable HANH, Aden DIEGO MD Unavailable Unavailable HANH, Aden DIEGO MD Unavailable Unavailable HANH, A JOHNATHON LAKHANI Unavailable Unavailable HANH, A JOHNATHON LAKHANI Unavailable Unavailable HANH, A JOHNATHON LAKHANI Unavailable Unavailable HANH, A JOHNATHON LAKHANI Unavailable Unavailable HANH, A JOHNATHON LAKHANI Unavailable Unavailable HANH, Aden DIEGO MD Unavailable Unavailable HANH, Aden DIEGO MD Unavailable Unavailable HANH, Aden DIEGO MD Unavailable Unavailable HANH, A JOHNATHON LAKHANI Unavailable Unavailable HANH, A JOHNATHON LAKHANI Unavailable Unavailable HANH, A JOHNATHON LAKHANI Unavailable Unavailable HANH, A JOHNATHON LAKHANI Unavailable Unavailable HANH, Aden DIEGO MD Unavailable Unavailable HANH, Aden DIEGO MD Unavailable Unavailable HANH, Aden DIEGO MD Unavailable Unavailable HANH, Aden DIEGO MD Unavailable Unavailable HANH, A JOHNATHON LAKHANI Unavailable Unavailable HANH, A JOHNATHON LAKHANI Unavailable Unavailable HANH, A JOHNATHON LAKHANI Unavailable [...] Unavailable GEJOSE MIGUEL ROMERO MD Unavailable Unavailable GERHEAAJOSE MIGUEL MD Unavailable [...] Unavailable Unavailable GERHEAAJOSE MIGUEL MD Unavailable Unavailable MANOCHA, LAUREN LAKHANI Unavailable [...] MANOCHA, LAUREN LAKHANI Unavailable Unavailable Prashant CARNES [id number] Unavailable Unavailable SYSTEM IN, NOT IN PROVIDER Unavailable Unavailable MICHELLE, F CHERI DO Unavailable Unavailable MICHELLE, F CHERI DO Unavailable Unavailable MICHELLE, F CHERI DO Unavailable Unavailable MICHELLE, F CHERI DO Unavailable Unavailable MICHELLE, F CHERI DO Unavailable Unavailable MICHELLE, F CHERI DO Unavailable Unavailable MICHELLE, F CHERI DO Unavailable Unavailable MICHELLE, F CHERI DO Unavailable Unavailable MICHELLE, F CHREI DO Unavailable Unavailable MICHELLE, F CHERI DO [...] is protected by Article 27-F of the [facility] Public Health law. If you continue you may have access to information: Regarding HIV / AIDS; Provided by facilities licensed or operated by the [facility] Office of Mental Health; or Provided by the [facility] Office for People With Developmental Disabilities. If such information is present, then the following [facility] mandated warning applies: This information has [...] law may result in a fine or nursing home sentence or both. A general authorization for the release of medical or other information is NOT sufficient authorization for further disc losure. Allergies and Adverse Reactions Type Description Substance Reaction Status Data Source(s ) Drug allergy FENTANYL FENTANYL [facility] CLASS SULFA (sulfonamide) SULFA (sulfonamide) HIVES; DYSPNEA [facility] Drug allergy trazodone trazodone Swallowing problem [facility] Drug allergy tomato tomato Anaphylaxis SV [facility] Drug allergy Sulfa (Sulfonamide Antibiotics) Sulfa (Sulfonami de Antibiotics) Anaphylaxis [facility] Drug allergy NSAIDS (Non-Steroidal Anti-Inflammatory Drug) NSAIDS (Non-Steroidal Anti-Inflammatory Drug) Bleeding [facility] Drug allergy Levaquin Levaquin Swelling [facility] DRUG CHLORHEXIDINE TOWELETTE CHLORHEXIDINE TOWELETTE Itching Lo w [facility] SYSTEMIC NO ALLERGIES ON FILE NO ALLERGIES ON FILE [facility] Drug Class NSAIDS (NON-STEROIDAL ANTI-INFLAMMATORY DRUG) NSAIDS (NON-STEROIDAL ANTI-INFLAMMATORY DRUG) GI Bleeding [facility] DRUG INGREDI TRAZODONE Trazodone [facility] Drug Class SULFA (SULFONAMIDE ANTIBIOTICS) SULFA (SULFONAMI DE ANTIBIOTICS) Anaphylaxis [facility] Drug allergy Levaquin Drug allergy Anaphylaxis Active eCW1 ([facility]) NSAIDS NSAIDS NSAIDS GI Bleed Active eCW1 ([facility]) TOMATOES TOMATOES TOMATOES Anaphylaxis Active eCW1 ([facility]) NSAIDS NSAIDS NSAIDS GI Bleed Active eCW1 ([facility]) TOMATOES TOMATOES TOMATOES Anaphylaxis Active eCW1 ([facility]) NSAIDS NSAIDS NSAIDS GI Bleed Active eCW1 ([facility]) TOMATOES TOMATOES TOMATOES Anaphylaxis Active eCW1 ([facility]) NSAIDS NSAIDS NSAIDS GI Bleed Active eCW1 ([facility]) TOMATOES TOMATOES TOMATOES Anaphylaxis Active eCW1 ([facility]) NSAIDS NSAIDS NSAIDS GI Bleed Active eCW1 ([facility]) TOMATOES TOMATOES TOMATOES Anaphylaxis Active eCW1 ([facility]) Levaquin Levaquin Levofloxacin 750 MG Oral Tablet [Levaquin ] Anaphylaxis Active eCW1 ([facility]) NSAIDS NSAIDS NSAIDS GI Bleed Active eCW1 ([facility]) TOMATOES TOMATOES TOMATOES Anaphylaxis Active eCW1 ([facility]) Family History Family Member Name Family Member Gender Family Member Status Date o f Status Description Data Source(s) Unknown Unknown Problem [facility] ([facility]) father,mgf,mgm Unknown Male Problem MEDENT ([facility]) Unknown Male Problem MEDENT ([facility]) Unknown Male Problem MEDENT ([facility], ) Encounters Encounter Providers Location Date Indications Data Source(s ) Outpatient Attender: Paulie Escamilla MDReferrer: ISIDRO Thomas [id number] 12/08/2020 04:32:51 AM EST [facility] Outpatient Referrer: ANNIE ADAMS 12/07/2020 12:00:00 AM [facility] Inpatient Attender: ANNIE Dietz terrence: ANCELMO RhodesAdmitter: ANNIE ADAMS [id number] 12/06/2020 12:00:00 AM EST - 12/08/2020 02:37:00 PM EST Other specified health status [facility] Other specified health status Patient discharged. Emergency Attender: SANFORD CARDENASConsultant: Cait langston MD 12/05/2020 08:03:00 PM EST - 12/05/2020 11:46:00 PM EST [facility] Patient discharged. Outpatient Attender: MOISES GARZA MDReferrer: ISIDRO GIPSON MD [id number] 11/29/2020 12:00:00 AM EST - 11/29/2020 01:09:45 PM EST Hypoglycemia, unspecified [facility] Hypoglycemia, unspecified [place] [address] [address] 11/18/2020 12:00:00 AM EST eCW1 ([facility]) [place] [address] [address] 11/14/2020 12:00:00 AM EST eCW1 ([facility]) Outpatient Attender: Adrian Pham MD [facility] [place] 11/11/2020 09:00:00 AM EST [facility] ([facility] [place] [address] [address] 11/09/2020 12:00:00 AM EST eCW1 ([facility]) [place] [address] [address] 11/08/2020 12:00:00 AM EST eCW1 ([facility]) Office Visit Attender: RITA HOLDEN DO [facility] [place] 10/29/2020 01:16:00 AM EST [facility] [place] [address] [address] 10/28/2020 12:00:00 AM EST eCW1 ([facility]) [place] [address] [address] 10/27/2020 12:00:00 AM EST eCW1 ([facility]) Office Visit Attender: Adrian Pham MD [facility] [place] 10/26/2020 01:11:00 AM EST [facility] ([facility]) Outpatient Attender: Adrian Pham MD [facility] [place] 10/23/2020 01:15:00 AM EST [facility] ([facility]) Outpatient Attender: Adrian Pham MD [facility] [place] 10/21/2020 01:23:00 AM EST [facility] ([facility]) Outpatient Attender: Adrian Pham MD [facility] [place] 10/20/2020 02:10:00 AM EST [facility] ([facility]) Outpatient Attender: Adrian Pham MD [facility] [place] 10/19/2020 01:33:00 AM EST [facility] ([facility]) Outpatient Attender: JAMES BUCKNER PA-C [facility] [place] 10/19/2020 01:31:00 AM EST [facility] ([facility]) Inpatient Attender: ER PHYSICIANAttend er: Adrian Pham MDAttender: SONYA DURANT MDAttender: JOSE GILLIS MDAdmitter: JOSE GILLIS MD 10/18/2020 04:51:04 AM EST Lab [facility] Outpatient Attender: Adrian Pham MD [facility] [place] 10/18/2020 01:37:00 AM EST [facility] ([facility] ( in Healthcare facility) Attender: Edward Pham MDAdmitter: SCOTT BATISTA MDConsultant: Cait Wyatt MD 10/17/20 10:07:00 PM EST - 10/29/2020 01:12:00 PM EST [facility] Inpatient Attender: Adrian Pham MDAttender: SONYA WITT 10/17/2020 10:07:00 PM EST [facility] Inpatient Attender: Adrian Pham MDAttender: SONYA DURANTAttender: SCOTT BATISTA MDAttender: ER PHYSICIANAdmitter: Adrian Pham MD 10/17/2020 07:14:00 PM EST - 10/29/2020 01:12:00 PM EST [facility] Patient discharged. Out[facility] Referrer[facility] 10/17/2020 0 4:52:39 PM EST intractable abd pain [facility] intractable abd pain Outpatient Attender: [facility] 10/17/2020 01:3 8:00 PM EST [facility] Emergency Attender: MARCELLE GOMEZCOConsultant: Cait cortes MD 10/17/2020 11:18:00 AM EST - 10/17/2020 05:42:00 PM EST [facility] Patient discharged. Outpatient Attender: Angelica sharma 10/09/2020 10:30:00 AM EST MEDENT ([facility]) [place] [address] [facility] [address] 10/07/2020 12:00:00 AM EST eCW1 ([facility]) Unknown [address] [facility] [address] 10/07/2020 12:00:00 AM EST eCW1 ([facility]) Outpatient Attender: Paulie Escamilla MDReferrer: ISIDRO Thomas [id number] 09/23/2020 05:23:26 AM EST [facility] Outpatient [address] [facility] [address] 08/25/2020 12:00:00 AM EST eCW1 ([facility]) Outpatient Attender: Paulie Escamilla MDReferrer: ISIDRO Thomas [id number] 08/24/2020 03:24:50 PM EST [facility] Outpatient Attender: Paulie Escamilla MDReferrer: ISIDRO Thomas [id number] 08/24/2020 01:46:37 PM EST [facility] Outpatient Attender: Paulie Escamilla MDReferrer: ISIDRO Thomas [id number] 08/24/2020 01:42:32 PM EST [facility] Outpatient Attender: Paulie Escamilla MDReferrer: ISIDRO Thomas [id number] 08/24/2020 01:32:14 PM EST [facility] Outpatient Attender: Paulie Escamilla MDReferrer: ISIDRO Thomas [id number] 08/24/2020 01:30:25 PM EST [facility] Outpatient Attender: Paulie Escamilla MDReferrer: ISIDRO Thomas [id number] 08/24/2020 01:29:15 PM EST [facility] Unknown [address] [facility] [address] 08/18/2020 12:00:00 AM EDT eCW1 ([facility]) Outpatient Attender: Yarelis Gomezto 08/17/2020 12:00:00 AM ED [facility] Unknown [address] [facility] [address] 08/15/2020 12:00:00 AM EDT eCW1 ([facility]) Outpatient Attender: Paulie Escamilla MDReferrer: ISIDRO Thomas [id number] 08/12/2020 12:10:37 PM EDT [facility] Out[facility] Attender: Mich EatonReferrer: ISIDRO CARRILLO MD _[id number] 08/12/2020 12:05:57 PM EDT [facility] Out[facility] Attender: Narinder Iverson MDReferrer: ISIDRO CARRILLO MD _[id number] 08/11/2020 04:18:25 AM EDT [facility] Unknown [address] [facility] [address] 08/05/2020 12:00:00 AM EDT eCW1 ([facility]) Outpatient Attender: Arecharlie Iverson MDReferrer: ISIDRO CARRILLO MD [id number] 08/03/2020 09:58:35 AM EDT [facility] Outpatient Attender: Narinder Iverson MDReferrer: ISIDRO CARRILLO MD [id number] 08/03/2020 09:51:06 AM EDT [facility] Outpatient Attender: Aref Kishor MDReferrer: ISIDRO CARRILLO MD _[id number] 08/02/2020 08:21:51 AM EDT [facility] Outpatient Referrer: ISIDRO CARRILLO MD 08/02/2020 08:14:19 AM EDT [facility] Outpatient 08/02/2020 08:06:34 AM EDT [facility] INPATIENT Attender: RASHMI LEROY MD [id number] 08/01/2020 01:56 :38 PM EDT [facility] INPATIENT Attender: JOSE MIGUEL WESTON MDAt tender: Dinesh SorensonAdmitter: DINESH HENNING MDConsultant: Med IsabelConsultant: Julio Grayson MDConsultant: Michael Anton MD [id number] 07/31/2020 03:12:38 PM EDT - 08/04/2020 12:00:00 PM EDT [facility] Patient discharged. Outpatient Referrer: PROVIDER SYSTEM IN [id number] 07/31/2020 0 7:59:50 AM EDT [facility] abd pain Outpatient 07/31/2020 06:25:00 AM EDT [facility] Emergency Attender: CHERI BURRIS DOConsultant: Cait langston MD 07/31/2020 05:17:00 AM EDT - 07/31/2020 11:00:00 AM EDT [facility] Patient discharged. Outpatient 07/30/2020 03:50:00 PM EDT [facility] Emergency Attender: CHERI BURRIS DOConsultant: Cait langston MD 07/30/2020 03:19:00 PM EDT - 07/30/2020 07:25:00 PM EDT [facility] Patient discharged. Emergency Attender: ALEC CALDERÓN MDConsultant: Cait valerio MD 06/03/2020 04:15:00 PM EDT - 06/03/2020 08:21:00 PM EDT [facility] Patient discharged. Outpatient 05/31/2020 08:00:00 PM EDT [facility] Emergency Attender: Mikey Oswald PAConsultant: Cait meza MD 05/31/2020 07:27:00 PM EDT - 05/31/2020 10:28:00 PM EDT [facility] Patient discharged. Outpatient 05/22/2020 05:14:00 PM EDT [facility] Emergency Attender: ALEC CALDERÓN MDConsultant: ARLETTE FLORES DO 05/22/2020 04:24:00 PM EDT - 05/22/2020 07:40:00 PM EDT [facility] Patient discharged. Outpatient 04/25/2020 12:00:00 AM [facility] [address] [address] 04/21/2020 12:00:00 AM EDT [facility]CW1 [facility] Outpatient Referrer: CYNTHIA SIMMONS MD 04/07/2020 05:51:00 AM EDT [facility]patient [address] [address] 04/05/2020 12:00:00 AM EDT [facility]CW1 [facility] [place] [address] [facility] [facility] [address] 04/05/2020 12:00:00 AM EDT eCW1 ([facility]) Outpatient Attender: Thong Castañeda MD [facility] Internal Med at [facility] 03/31/2020 09:05:00 AM EDT [facility] ([facility] Unknown [address] [facility] [address] 03/31/2020 12:00:00 AM EDT eCW1 ([facility]) Thong Castañeda MD: [address], [place] [address], Ph. Attender: Thong Castañeda MD [facility] - Main Schedule 03/31/2020 12:00:00 AM EDT ROBERTO ([facility]) [place] [address] [address] 03/30/2020 12:00:00 AM EDT eCW1 ([facility]) Outpatient [address] [facility] [address] 03/28/2020 12:00:00 AM EDT eCW1 ([facility]) [place] [address] [address] 03/28/2020 12:00:00 AM EDT [facility]CW1 ([facility]) [place] [address] [address] 03/25/2020 12:00:00 AM EDT [facility]CW1 ([facility]) [place] [address] [facility] [address] 03/24/2020 12:00:00 AM EDT eCW1 ([facility]) Outpatient Attender: LAUREN MCGOVERNeferrer: CYNTHIA Thomas [id number] 03/22/2020 12:00:00 AM EDT - 03/22/2020 10:38:52 AM EDT Other specified diseases of pancreas [facility] Other specified diseases of pancreas [address] [place] [address] 03/01/2020 12:00:00 AM EDT eCW1 ([facility]) Outpatient Attender: RAMAKRISHNA CARNES [id number] 02/26/2020 12:00 :00 AM EDT [facility] Outpatient Attender: RAMAKRISHNA CARNES [id number] 02/23/2020 12:00:00 AM EDT Gastroparesis [facility] Gastroparesis [address] [place] [address] 02/19/2020 12:00:00 AM EDT eCW1 ([facility]) [address] [place] [address] 02/18/2020 12:00:00 AM EDT eCW1 ([facility]) Outpatient Attender: RAMAKRISHNA CARNES [id number] 02/10/2020 12:00:00 AM EDT - 02/10/2020 01:41:27 PM EDT Adult failure to thrive [facility] Adult failure to thrive [address] [address] 02/08/2020 12:00:00 AM EDT eCW1 ([facility]) [address] [address] 02/04/2020 12:00:00 AM EDT eCW1 ([facility]) [address] [place] [address] 02/04/2020 12:00:00 AM EDT [facility]CW1 ([facility] [address] [address] 01/29/2020 12:00:00 AM EDT eCW1 ([facility]) [facility] [address] [place] [address], [place] [address] 01/28/2020 12:00:00 AM EDT eCW1 ([facility]) [facility] [address] [place] [address], [place] [address] 01/21/2020 12:00:00 AM EDT eCW1 ([facility]) [facility] [address] [place] [address], [place] [address] 01/20/2020 12:00:00 AM EDT eCW1 ([facility] [address] [address] 01/20/2020 12:00:00 AM EDT eCW1 ([facility] [address] [address] 01/18/2020 12:00:00 AM EDT eCW1 ([facility]) [address] [address] 01/18/2020 12:00:00 AM EDT eCW1 ([facility]) Outpatient Referrer: CYNTHIA SIMMONS MD 01/13/2020 05:17:00 AM EDT [facility] [address] [address] 01/12/2020 12:00:00 AM EDT eCW1 ([facility]) [facility] [address] [place] [address], [place] [address] 01/11/2020 12:00:00 AM EDT eCW1 ([facility]) [address] [address] 01/07/2020 12:00:00 AM EDT eCW1 ([facility] [address] [address] 01/05/2020 12:00:00 AM EDT eCW1 ([facility]) [facility] [address] [place] [address], [place] [address] 01/05/2020 12:00:00 AM EDT eCW1 ([facility] [address] [address] 01/04/2020 12:00:00 AM EDT eCW1 ([facility]) [facility] [address] [place] [address], [place] [address] 01/04/2020 12:00:00 AM EDT eCW1 ([facility] [address] [address] 01/04/2020 12:00:00 AM EDT eCW1 ([facility]) [address] [address] 12/23/2019 12:00:00 AM EST eCW1 ([facility] [address] [address] 11/30/2019 12:00:00 AM EST [facility]CW1 ([facility] [address] [address] 11/25/2019 12:00:00 AM EST [facility]CW1 ([facility] [address] [address] 11/24/2019 12:00:00 AM EST eCW1 ([facility] Outpatient Referrer: CYNTHIA SIMMONS MD 11/16/2019 01:29:00 PM EST [facility] Outpatient Attender: RAMAKRISHNA CARNES [id number] 11/16/2019 12:00:00 AM EST - 11/16/2019 02:57:30 PM EST [address] [address] 11/16/2019 12:00:00 AM EST eCW1 ([facility]) Outpatient Attender: Michelle Murray 11/16/2019 12:00:00 AM [facility] Outpatient Attender: RAMAKRISHNA CARNES [id number] 11/11/2019 12:00 :00 AM [facility] Outpatient Attender: LAUREN KOHLER MD 11/04/2019 12:00:00 AM [facility] Outpatient Attender: ENRIQUETA NORIEGA MDReferrer: ENRIQUETA NORIEGA MD 10/29/2019 12:00:00 AM [facility] Outpatient 10/27/2019 11:41:00 AM [facility] Emergency Attender: Tawanda DARDENCConsultant: ARLETTE JAUREGUI DO 10/27/2019 11:19:00 AM EST - 10/27/2019 06:07:00 PM EST [facility] Patient discharged. Inpatient Attender: RAMAKRISHNA CARNES 2886 44Attender: ENRIQUETA NORIEGA MDAttender: Edward Moreno MDAttender: LISS HALL MDAdmitter: Edward Moreno MDReferrer: PROVIDER SYSTEM INConsultant: RAMAKRISHNA CARNES [id number]: Edward Moreno MD [id number] 10/27/2019 12:00:00 AM EST - 11/02/2019 01:15:00 PM EST Unspecified abdominal pain [facility] Unspecified abdominal pain Patient discharged. [address] [address] 10/27/2019 12:00:00 AM EST eCW1 ([facility]) Outpatient Attender: RAMAKRISHNA CARNES [id number] 10/23/2019 12:00 :[address] [place] [address] 10/22/2019 12:00:00 AM EST eCW1 ([facility]) [address] [address] 10/19/2019 12:00:00 AM EST eCW1 ([facility]) [address] [address] 10/16/2019 12:00:00 AM EST eCW1 ([facility]) [facility] [place] [address] [address] 10/16/2019 12:00:00 AM EST eCW1 ([facility]) Inpatient Attender: Yarelis Anton r: RAMAKRISHNA CARNES [id number]: XIAO SAWYER MDAttender: HOUSTON CHAIDEZ MDAttender: Irene Block MDAdmitter: XIAO SILVERIO MDReferrer: HOUSTON CHAIDEZ MDConsultant: JOHNATHON SCHAFER MDConsultant: HOUSTON CHAIDEZ MD [id number] 09/27/2019 12:00:00 A M EST - 10/01/2019 03:09:00 PM EST Upper GI bleed, s/p gastric bypass with j-tube placement 3 weeks ago, pancreatitis. [facility] Upper GI bleed, s/p gastric bypass with j-tube placement 3 weeks ago, pancreatitis. Patient discharged. Medications Medication Brand Name Start Date Product Form Dose Route Admi nistrative Instructions Pharmacy Instructions Status Indications Reaction Description Data Source(s) pantoprazole 40 MG Delayed Release Oral Tablet pantoprazole (PROTONIX) EC tablet 40 mg pantoprazole (PROTONIX) EC tablet 40 mg 12/09/2020 09:00:[address] 40 mg Oral active 40 mg, Ora l, Daily Standard, First dose on Sat12/09/20 at 0900, For 30 days
Do not crush or chew
[facility] Medication administered onsite Oxycodone Hydrochloride 1 MG/ML Oral Martha ution oxyCODONE (ROXICODONE) 5 MG/5ML solution 40 mg oxyCODONE (ROXICODONE) 5 MG/5ML solution 40 mg 021 11:12:12 AM EST 40 mg Oral active 40 mg, Oral, Every 4 hours PRN, Moderate Pain (Pain Scale Score 4-6), Severe Pain (Pain Scale Score 7-10), Starting Digna 12/08/20 at 1112, For 3 days [facility] Medication administered onsite TPN adult 12/07/2020 07:00:00 PM EST Intravenous completed Intravenous, at 88-176 mL/hr, Daily at 1900, First dose (after last reorder) on Sat12/07/20 at 1900, For 1 day
Start rate at 88 mL/hr for 1 hours.
Increase rate to 176 mL/hr for 10 hours.
Decrease rate to 88 mL/hr for 1 hours, then stop.

Is patient on propofol (= 1 fat kcal/ml)? No
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
Verify blood return before use. Flush lines with 10 mL Sodium Chloride 0.9% routinely Q12hrs & before and after infusions or blood sampling per policy followed by 3 mL Heparin 10 units/mL (UNLESS PATIENT HAS HEPARIN ALLERGY). Reference CM C-34 Central Lines.
[Order 1 End] [Order 2 Start] Name: heparin lock flush 10 UNIT/ML injection 30 Units Signed Summary: 30 Units (3 mL), Intravenous, Every 12 hours, First dose on Sat12/07/20 at 1015, For 30 days
Verify blood return before use. Flush lines with 10 mL Sodium Chloride 0.9% routinely Q12hrs & before and after infusions or blood sampling per policy followed by 3 mL Heparin 10 units/mL (UNLESS PATIENT HAS HEPARIN ALLERGY). Reference CM C-34 Central Lines.
[Order 2 End] [facility] Medication administered onsite sodium chloride flush 0.9 % 10 mL 12/07/2020 10:15:[address] 10 mL Intravenous active [Order 1 Star t] Name: sodium chloride flush 0.9 % 10 mL Signed Summary: 10 mL, Intravenous, Every 12 hours, First dose on Sat12/07/20 at 1015, For 30 days
Verify blood return before use. Flush lines with 10 mL Sodium Chloride 0.9% routinely Q12hrs & before and after infusions or blood sampling per policy followed by 3 mL Heparin 10 units/mL (UNLESS PATIENT HAS HEPARIN ALLERGY). Reference CM C-34 Central Lines.
[Order 1 End] [Order 2 Start] Name: heparin lock flush 10 UNIT/ML injection 30 Units Signed Summary: 30 Units (3 mL), Intravenous, Every 12 hours, First dose on Sat12/07/20 at 1015, For 30 days
Verify blood return before use. Flush lines with 10 mL Sodium Chloride 0.9% routinely Q12hrs & before and after infusions or blood sampling per policy followed by 3 mL Heparin 10 units/mL (UNLESS PATIENT HAS HEPARIN ALLERGY). Reference CM C-34 Central Lines.
[Order 2 End] [facility] Medication administered onsite sodium chloride flush 0.9 % 10 mL 12/07/2020 10:03:[address] 10 mL Intravenous active [Order 1 Star t] Name: sodium chloride flush 0.9 % 10 mL Signed Summary: 10 mL, Intravenous, PRN, [place], Starting Sat12/07/20 at 1003, For 30 days
Verify blood return before use. Flush lines with 10 mL Sodium Chloride 0.9% routinely Q12hrs & before and after infusions or blood sampling per policy followed by 3 mL Heparin 10 units/mL (UNLESS PATIENT HAS HEPARIN ALLERGY). Reference CM C-34 Central Lines.
[Order 1 End] [Order 2 Start] Name: heparin lock flush 10 UNIT/ML injection 30 Units Signed Summary: 30 Units (3 mL), Intravenous, PRN, Line Care, [place], Starting Sat12/07/20 at 1003, For 30 days
Verify blood return before use. Flush lines with 10 mL Sodium Chloride 0.9% routinely Q12hrs & before and after infusions or blood sampling per policy followed by 3 mL Heparin 10 units/mL (UNLESS PATIENT HAS HEPARIN ALLERGY). Reference CM C-34 Central Lines.
[Order 2 End] [facility] Medication administered onsite sodium chloride flush 0.9 % 10 mL 12/07/2020 10:03:[address] 10 mL Intravenous active [Order 1 Star t] Name: sodium chloride flush 0.9 % 10 mL Signed Summary: 10 mL, Intravenous, PRN, [place], Starting Sat12/07/20 at 1003, For 30 days
Verify blood return before use. Flush lines with 10 mL Sodium Chloride 0.9% routinely Q12hrs & before and after infusions or blood sampling per policy followed by 3 mL Heparin 10 units/mL (UNLESS PATIENT HAS HEPARIN ALLERGY). Reference CM C-34 Central Lines.
[Order 1 End] [Order 2 Start] Name: heparin lock flush 10 UNIT/ML injection 30 Units Signed Summary: 30 Units (3 mL), Intravenous, PRN, Line Care, [place], Starting Sat12/07/20 at 1003, For 30 days
Verify blood return before use. Flush lines with 10 mL Sodium Chloride 0.9% routinely Q12hrs & before and after infusions or blood sampling per policy followed by 3 mL Heparin 10 units/mL (UNLESS PATIENT HAS HEPARIN ALLERGY). Reference CM C-34 Central Lines.
[Order 2 End] [facility] Medication administered onsite sodium chloride flush 0.9 % 20 mL [id number] 12/07/2020 10:02:17 AM EST 20 mL Intravenous active 20 mL, I ntravenous, PRN, After Parenteral Nutrition, Starting Sat12/07/20 at 1002, For 30 days
Flush line with 20 mL Sodium Chloride 0.9 % after Parenteral Nutrition (PN).
[facility] Medication administered onsite sodium chloride 0.9 % bag 3-20 mL [id number] 12/07/2020 10:02:12 AM EST mL Intravenous active 3-20 mL, Intr avenous, at 1-999 mL/hr, PRN, For Medication Administration and Line Clearance, Starting Sat12/07/20 at 1002, For 30 days
Flush line with sufficient amount of fluid needed based on ma nufacturer recommendation for specific line size. Rate should be run at the same rate as medication in the line being flushed.
[facility] Medication administered onsite heparin sodium, porcine 10 UNT/ML Inject able Solution heparin lock flush 10 UNIT/ML injection 30 Units heparin lock flush 10 UNIT/ML injection 30 Units 12/07/2020 09:52:42 AM EST 3 mL Intracatheter active 30 Units (3 mL), Intracatheter, PRN, Line Care, Starting Sat12/07/20 at 0952, For 30 days [facility] Medication administered onsite sodium chloride (preservative free) 0.9 % flush 3 mL [id number] 12/07/2020 09:52:26 AM EST 3 mL Intravenous active 3 mL, Intravenous, Every 8 hours PRN, Line Care, Starting Sat12/07/20 at 0952, For 30 days [facility] Medication administered onsite 0.8 ML Enoxaparin sodium 100 MG/ML Prefi lled Syringe enoxaparin sodium (LOVENOX) injection 80 mg enoxaparin sodium (LOVENOX) injection 80 mg 12/06/2020 09:00:00 PM EST 80 mg Subcutaneous active 80 mg, Subcutaneous, Every 12 hours Standard (2 times per day), First dose (after last modification) on Sat12/06/20 at 2100, For 30 days [facility] Medication administered onsite fat emulsion fish oil/plant based infusion 20 % (200 mg/mL) [id number] 12/06/2020 07:00:00 PM EST 14.5 mL/h Intravenous completed 14.5 mL/hr, Intravenous, Administer over 12 Hours, Daily at 1900, First dose on Sat12/06/20 at 1900, For 12 hours [facility] Medication administered onsite TPN adult 12/06/2020 07:00:00 PM EST Intravenous completed Intravenous, at 88-176 mL/hr, Daily at 1900, First dose on Sat12/06/20 at 1900, For 1 day
Start rate at 88 mL/hr for 1 hours.
Increase rate to 176 mL/hr for 10 hours.
Decrease rate to 88 mL/hr for 1 hours, then stop.

Is patient on propofol (= 1 fat kcal/ml)? No
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 [facility] Medication administered onsite 1 ML Lorazepam 2 MG/ML Injection LORazepam (ATIVAN) in jection 0.5 mg LORazepam (ATIVAN) injection 0.5 mg 12/06/2020 04:19:07 PM EST 0.5 mg Intrave nous active 0.5 mg, Intravenous, Every 4 hours PRN, Anxiety, Starting Sat12/06/20 at 1619, For 3 days [facility] Medication administered onsite ondansetron (ZOFRAN) injection 4 mg [id number] 12/06/2020 04:18:5 4 PM EST 4 mg Intravenous active 4 mg, In travenous, Every 8 hours PRN, Nausea, Vomiting, Starting Sat12/06/20 at 1618, For 3 days [facility] Medication administered onsite diphenhydrAMINE (BENADRYL) injection 50 mg [id number] 12/06/2020 01:25:59 PM EST 50 mg Intravenous active 50 m g, Intravenous, Daily PRN, Itching, Allergies, Nausea, Other, Home Medication, Starting Sat12/06/20 at 1325, For 719 hours [facility] Medication administered onsite morphine sulfate (PF) injection 2 mg [id number] 12/06/2020 09:20: 58 AM EST 2 mg Intravenous aborted 2 mg, In travenous, Every 3 hours PRN, Severe Pain (Pain Scale Score 7-10), Starting Sat12/06/20 at 0920, For 3 days [facility] Medication administered onsite Fluoxetine 20 MG Oral Capsule fluoxetine (PROZAC) caps ule 20 mg fluoxetine (PROZAC) capsule 20 mg 12/06/2020 09:00:00 AM EST 20 mg Oral active 20 mg, Oral, Daily Standard, First dose on Sat12/06/20 at 0900, For 30 days [facility] Medication administered onsite pantoprazole 4 MG/ML Injectable Solution pantoprazole (PROTONIX) injection 40 mg pantoprazole (PROTONIX) injection 40 mg 12/06/2020 09:00:00 AM EST 40 mg Intravenous aborted 40 mg, Intrav enous, 2 Times Daily, First dose (after last modification) on Sat12/06/20 at 0900, For 7 days
Dilute with 10 mL of 0.9% NaCl.Give IVP over 2 minutes. Flush before and after.
[facility] Medication administered onsite Potassium Chloride 0.1 MEQ/ML Injectable Solution potassium chloride 10 mEq in 100 mL IVPB (premix) potassium chloride 10 mEq in 100 mL IVPB (premix) 12/06/2020 08:00:00 AM EST 10 meq Intravenous completed 10 mEq, Intravenous, Administer over 60 Minutes, Every 1 hour, First dose on Sat12/06/20 at 0800, For 4 doses [facility] Medication administered onsite diphenhydrAMINE (BENADRYL) injection 12.5 mg [id number] 12/06/2020 06:30:00 AM EST 12.5 mg Intravenous completed 12 .5 mg, Intravenous, Once, Sat12/06/20 at 0630, For 1 dose [facility] Medication administered onsite iohexol (OMNIPAQUE) 350 MG/ML contrast injection 100 mL [id number] 12/06/2020 06:00:00 AM EST 100 mL Given by IV completed 100 mL, Given by IV, 1 TIME IMAGING, Sat12/06/20 at 0600, For 1 dose [facility] Medication administered onsite morphine sulfate (PF) injection 2 mg [id number] 12/06/2020 04:00: 00 AM EST 2 mg Intravenous completed 2 mg, In travenous, Once, Sat12/06/20 at 0400, For 1 dose [facility] Medication administered onsite Acetaminophen 325 MG Oral Tablet acetaminophen (TYLENO L) tablet 650 mg acetaminophen (TYLENOL) tablet 650 mg 12/06/2020 03:19:15 AM EST 65 0 mg Oral completed 650 mg, Oral, E very 6 hours PRN, Mild Pain (Pain Scale Score 1-3), Starting Sat12/06/20 at 0319, For 2 days
Maximum daily dose of acetaminophen is 3,000 mg from all sources in 24 hours.
[facility] Medication administered onsite Zolpidem tartrate 5 MG Oral Tablet zolpidem (AMBIEN) t ablet 7.5 mg zolpidem (AMBIEN) tablet 7.5 mg 12/06/2020 03:03:11 AM EST 7.5 mg Oral active 7.5 mg, Oral, Nightly PRN, Sleep, Starting Sat12/06/20 at 0303, For 71 hours [facility] Medication administered onsite albuterol (PROVENTIL HFA) inhaler 2 puff [id number] 12/06/2020 02:42:39 AM EST 2 {puff} Inhalation active 2 pu ff, Inhalation, Every 6 hours PRN, Wheezing, Starting Sat12/06/20 at 0242, For 4 days
Shake the inhaler well before each spray.
[facility] Medication administered onsite Ondansetron 4 MG Oral Tablet Ondansetron HCl 4 MG Ondansetro n HCl 4 MG 11/14/2020 12:00:00 AM EST 1.0 {tablet} active Ondansetron HCl 4 MG eCW1 ([facility]) Zolpidem tartrate 12.5 MG Extended Relea se Oral Tablet Zolpidem Tartrate ER 12.5 MG Zolpidem Tartrate ER 12.5 MG 11/14/2020 12:00:00 AM EST 1.0 {tablet_at_bedtime_as_needed} active Zo lpidem Tartrate ER 12.5 MG eCW1 ([facility]) Zolpidem tartrate 12.5 MG Extended Relea se Oral Tablet Zolpidem Tartrate ER 12.5 MG Zolpidem Tartrate ER 12.5 MG 11/14/2020 12:00:00 AM EST 1.0 {tablet_at_bedtime_as_needed} active Zo lpidem Tartrate ER 12.5 MG eCW1 ([facility]) Ondansetron 4 MG Oral Tablet Ondansetron HCl 4 MG Ondansetro n HCl 4 MG 11/14/2020 12:00:00 AM EST 1.0 {tablet} active Ondansetron HCl 4 MG eCW1 ([facility]) 0.5 mg 10/28/2020 12:00:00 AM EST tablet [...] Potassium 10/09/2020 12:00:00 AM EST active MEDENT ([facility]) Zolpidem tartrate 10 MG Oral Tablet Zolpidem Tartrate 10 MG Zolpidem Tartrate 10 MG 08/25/2020 12:00:00 AM EST 1.0 {tablet_at_bedtime_as_needed} active Zolpidem Tartrate 10 MG eCW1 ([facility]) Zolpidem tartrate 10 MG Oral Tablet Zolpidem Tartrate 10 MG Zolpidem Tartrate 10 MG 08/25/2020 12:00:00 AM EST 1.0 {tablet_at_bedtime_as_needed} active Zolpidem Tartrate 10 MG eCW1 ([facility]) Fluoxetine 4 MG/ML Oral Solution FLUoxetine HCl 20 MG/ 5ML FLUoxetine HCl 20 MG/5ML 08/25/2020 12:00:00 AM EST 5.0 {ml} active FLUoxetine HCl 20 MG/5ML eCW1 ([facility]) Fluoxetine 4 MG/ML Oral Solution FLUoxetine HCl 20 MG/ 5ML FLUoxetine HCl 20 MG/5ML 08/25/2020 12:00:00 AM EST 5.0 {ml} active FLUoxetine HCl 20 MG/5ML eCW1 ([facility]) Fluoxetine 4 MG/ML Oral Solution FLUoxetine HCl 20 MG/ 5ML FLUoxetine HCl 20 MG/5ML 08/25/2020 12:00:00 AM EST 5.0 {ml} active FLUoxetine HCl 20 MG/5ML eCW1 ([facility]) Zolpidem tartrate 10 MG Oral Tablet Zolpidem Tartrate 10 MG Zolpidem Tartrate 10 MG 08/25/2020 12:00:00 AM EST 1.0 {tablet_at_bedtime_as_needed} active Zolpidem Tartrate 10 MG eCW1 ([facility]) Fluoxetine 4 MG/ML Oral Solution FLUoxetine HCl 20 MG/ 5ML FLUoxetine HCl 20 MG/5ML 08/25/2020 12:00:00 AM EST 5.0 {ml} active FLUoxetine HCl 20 MG/5ML eCW1 ([facility]) Zolpidem tartrate 10 MG Oral Tablet Zolpidem Tartrate 10 MG Zolpidem Tartrate 10 MG 08/25/2020 12:00:00 AM EST 1.0 {tablet_at_bedtime_as_needed} active Zolpidem Tartrate 10 MG eCW1 ([facility]) Zolpidem tartrate 10 MG Oral Tablet Zolpidem Tartrate 10 MG Zolpidem Tartrate 10 MG 08/25/2020 12:00:00 AM EST 1.0 {tablet_at_bedtime_as_needed} active Zolpidem Tartrate 10 MG eCW1 ([facility]) Fluoxetine 4 MG/ML Oral Solution FLUoxetine HCl 20 MG/ 5ML FLUoxetine HCl 20 MG/5ML 08/25/2020 12:00:00 AM EST 5.0 {ml} active FLUoxetine HCl 20 MG/5ML eCW1 ([facility]) Fluoxetine 4 MG/ML Oral Solution FLUoxetine HCl 20 MG/ 5ML FLUoxetine HCl 20 MG/5ML 08/25/2020 12:00:00 AM EST 5.0 {ml} active FLUoxetine HCl 20 MG/5ML eCW1 ([facility]) Zolpidem tartrate 10 MG Oral Tablet Zolpidem Tartrate 10 MG Zolpidem Tartrate 10 MG 08/25/2020 12:00:00 AM EST 1.0 {tablet_at_bedtime_as_needed} active Zolpidem Tartrate 10 MG eCW1 ([facility]) Fluoxetine 4 MG/ML Oral Solution FLUoxetine HCl 20 MG/ 5ML FLUoxetine HCl 20 MG/5ML 08/25/2020 12:00:00 AM EST 5.0 {ml} active FLUoxetine HCl 20 MG/5ML eCW1 ([facility]) Zolpidem tartrate 10 MG Oral Tablet Zolpidem Tartrate 10 MG Zolpidem Tartrate 10 MG 08/25/2020 12:00:00 AM EST 1.0 {tablet_at_bedtime_as_needed} active Zolpidem Tartrate 10 MG eCW1 ([facility]) Fluoxetine 4 MG/ML Oral Solution FLUoxetine HCl 20 MG/ 5ML FLUoxetine HCl 20 MG/5ML 08/25/2020 12:00:00 AM EST 5.0 {ml} active FLUoxetine HCl 20 MG/5ML eCW1 ([facility]) Fluoxetine 4 MG/ML Oral Solution FLUoxetine HCl 20 MG/ 5ML FLUoxetine HCl 20 MG/5ML 08/25/2020 12:00:00 AM EST 5.0 {ml} active FLUoxetine HCl 20 MG/5ML eCW1 ([facility]) Levetiracetam 500 MG Oral Tablet levETIRAcetam (KEPPRA ) 500 mg tablet levETIRAcetam (KEPPRA) 500 mg tablet 08/04/2020 12:00:00 AM EDT 500 m g oral active Take 1 tablet (500 mg total) by mouth 2 (two) times a day. [facility] 10 mg 07/07/2020 12:00:00 AM EDT tablet 30 TAKE ONE TABLET BY MOUTH AT BEDTIME , MAXIMUM DAILY DOSE = 1 TABLET TAKE ONE TABLET BY MOUTH AT BEDTIME , MAXIMUM DAILY DOSE = 1 TABLET SOLD: 07/07/2020 [facility] 20 mg 06/30/2020 12:00:00 AM EDT capsule 90 TAKE ONE CAPSULE BY MOUTH EVERY DAY TAKE ONE CAPSULE BY MOUTH EVERY DAY SOLD: 07/07/2020 [facility] Zolpidem tartrate 5 MG Oral Tablet Zolpidem Tartrate 5 MG Zolpidem Tartrate 5 MG 04/21/2020 12:00:00 AM EDT 1.5 {tablet_at_bedtime} active Zolpidem Tartrate 5 MG eCW1 ([facility]) Zolpidem tartrate 5 MG Oral Tablet Zolpidem Tartrate 5 MG Zolpidem Tartrate 5 MG 04/21/2020 12:00:00 AM EDT 1.5 {tablet_at_bedtime} active Zolpidem Tartrate 5 MG eCW1 ([facility]) Zolpidem tartrate 5 MG Oral Tablet Zolpidem Tartrate 5 MG Zolpidem Tartrate 5 MG 04/21/2020 12:00:00 AM EDT 1.5 {tablet_at_bedtime} active Zolpidem Tartrate 5 MG eCW1 ([facility]) Amylases 03853 UNT / Endopeptidases 9500 UNT / Lipase 3000 UNT Delayed Release Oral Capsule Pancrelipase (Rek-Mvnr-Qiav) 2092-9145 UNIT Oral Capsule Delayed Release Particles (Creon) Pancrelipase (Kft-[id number]-Ryda) 4810-1060 U NIT Oral Capsule Delayed Release Particles (Creon) 04/07/2020 12:00:00 AM EDT Oral aborted Pancreatic insufficiency Take 1 capsule by mouth Three times daily before meals [facility] Pancreatic insufficiency Zolpidem tartrate 10 MG Oral Tablet Zolpidem Tartrate 10 MG Zolpidem Tartrate 10 MG 03/28/2020 12:00:00 AM EDT 1.0 {tablet_at_bedtime_as_needed} active Zolpidem Tartrate 10 MG eCW1 ([facility]) [facility] [place]DURABLE MEDICAL EQUIPMENT SEE SIG) [place] [facility] [place] [phone] 03/28/2020 12:00:00 AM EDT act lucia Jejunostomy tube presentChronic narcotic useOn total parenteral nutrition (TPN)History of Nadege-en-Y gastric bypassAnticoagulatedDietary counseling and surveillanceBody mass index (BMI) 22.0-22.9, adultFunctional diarrheaFailure to thrive in adultStatus post bariatric surgery Use as directed. Please draw the following labs weekly: CMP, Mg, Phos, CBC and diff, prealbumin. And a monthly triglyceride. Thank you. [facility] Jejunostomy tube present Chronic narcotic [...] {tablet_at_bedtime_as_needed} active Zolpidem Tartrate 10 MG eCW1 ([facility]) Zolpidem tartrate 10 MG Oral Tablet Zolpidem Tartrate 10 MG Zolpidem Tartrate 10 MG 03/28/2020 12:00:00 AM EDT 1.0 {tablet_at_bedtime_as_needed} active Zolpidem Tartrate 10 MG eCW1 ([facility]) Zolpidem tartrate 10 MG Oral Tablet Zolpidem Tartrate 10 MG Zolpidem Tartrate 10 MG 03/28/2020 12:00:00 AM EDT 1.0 {tablet_at_bedtime_as_needed} active Zolpidem Tartrate 10 MG eCW1 ([facility]) Zolpidem tartrate 10 MG Oral Tablet Zolpidem Tartrate 10 MG Zolpidem Tartrate 10 MG 03/28/2020 12:00:00 AM EDT 1.0 {tablet_at_bedtime_as_needed} active Zolpidem Tartrate 10 MG eCW1 ([facility]) Zolpidem tartrate 10 MG Oral Tablet Zolpidem Tartrate 10 MG Zolpidem Tartrate 10 MG 03/28/2020 12:00:00 AM EDT 1.0 {tablet_at_bedtime_as_needed} active Zolpidem Tartrate 10 MG eCW1 ([facility]) Oxycodone Hydrochloride 5 MG Oral Tablet Oxycodone HCl 5 MG Oxycodone HCl 5 MG 03/25/2020 12:00:00 AM EDT active Oxycodone HCl 5 MG eCW1 ([facility]) Oxycodone Hydrochloride 5 MG Oral Tablet Oxycodone HCl 5 MG Oxycodone HCl 5 MG 03/25/2020 12:00:00 AM EDT active Oxycodone HCl 5 MG eCW1 ([facility]) DiphenhydrAMINE HCl 50 MG/ML DiphenhydrAMINE HCl 50 MG/ML 12:00:00 AM EDT active DiphenhydrAMINE H Cl 50 MG/ML eCW1 ([facility]) 0.8 ML Enoxaparin sodium 100 MG/ML Prefi lled Syringe [Lovenox] Lovenox 80 MG/0.8ML Lovenox 80 MG/0.8ML 03/24/2020 12:00:00 AM EDT 0.7 {ml} active Lovenox 80 MG/0.8ML eCW1 ([facility]) 200 ACTUAT Albuterol 0.09 MG/ACTUAT Mete red Dose Inhaler [Ventolin] Ventolin HFA 108 (90 Base) MCG/ACT Ventolin HFA 108 (90 Base) MCG/ACT 03/24/2020 12:00:00 AM EDT 1.0 {puff_as_needed} active Donovan tolin HFA 108 (90 Base) MCG/ACT eCW1 ([facility]) 1 ML Enoxaparin sodium 100 MG/ML Prefilled Syringe [Lo venox] Lovenox 100 MG/ML Lovenox 100 MG/ML 03/24/2020 12:00:00 AM EDT active Lovenox 100 MG/ML eCW1 ([facility]) Albuterol 0.83 MG/ML Inhalant Solution Albuterol Sulfa te (2.5 MG/3ML) 0.083% Albuterol Sulfate (2.5 MG/3ML) 0.083% 03/24/2020 12:00:00 AM EDT 3.0 {ml_as_needed} active Albuterol Sulfate (2.5 MG/3ML) 0.083% eCW1 ([facility]) Acetaminophen 500 MG Oral Tablet Acetaminophen 500 MG 2019 12:00:00 AM EDT 1.0 {tablet_as_needed} active A cetaminophen 500 MG eCW1 ([facility]) 200 ACTUAT Albuterol 0.09 MG/ACTUAT Mete red Dose Inhaler [Ventolin] Ventolin HFA 108 (90 Base) MCG/ACT Ventolin HFA 108 (90 Base) MCG/ACT 03/24/2020 12:00:00 AM EDT 1.0 {puff_as_needed} active Donovan tolin HFA 108 (90 Base) MCG/ACT eCW1 ([facility]) Acetaminophen 500 MG Oral Tablet Acetaminophen 500 MG 2019 12:00:00 AM EDT 1.0 {tablet_as_needed} active A cetaminophen 500 MG eCW1 ([facility]) Heparin Lock Flush 100 UNIT/ML UNK 03/24/2020 12:00:00 AM EDT active Heparin Lock Flush 100 UNIT/ML eCW1 ([facility]) DiphenhydrAMINE HCl 50 MG/ML DiphenhydrAMINE HCl 50 MG/ML 12:00:00 AM EDT active DiphenhydrAMINE H Cl 50 MG/ML eCW1 ([facility]) DiphenhydrAMINE HCl 50 MG/ML DiphenhydrAMINE HCl 50 MG/ML 12:00:00 AM EDT active DiphenhydrAMINE H Cl 50 MG/ML eCW1 ([facility]) 1 ML Enoxaparin sodium 100 MG/ML Prefilled Syringe [Lo venox] Lovenox 100 MG/ML Lovenox 100 MG/ML 03/24/2020 12:00:00 AM EDT active Lovenox 100 MG/ML eCW1 ([facility]) alpha-Tocopherol Acetate 1 UNT/ML / Asco rbic Acid 20 MG/ML / Biotin 0.006 MG/ML / Cholecalciferol 20 UNT/ML / dexpanthenol 1.5 MG/ML / Folic Acid 0.06 MG/ML / Niacinamide 4 MG/ML / Pyridoxine Hydrochloride 0.6 MG/ML / retinyl palmitate 330 UNT/ML / Ribofl Infuvite Adult - Infuvite Adult - 03/24/2020 12:00:00 AM EDT active Infuvite Adult - eCW1 ([facility]) Acetaminophen 500 MG Oral Tablet Acetaminophen 500 MG 2019 12:00:00 AM EDT 1.0 {tablet_as_needed} active A cetaminophen 500 MG eCW1 ([facility]) 200 ACTUAT Albuterol 0.09 MG/ACTUAT Mete red Dose Inhaler [Ventolin] Ventolin HFA 108 (90 Base) MCG/ACT Ventolin HFA 108 (90 Base) MCG/ACT 03/24/2020 12:00:00 AM EDT 1.0 {puff_as_needed} active Donovan tolin HFA 108 (90 Base) MCG/ACT eCW1 ([facility]) alpha-Tocopherol Acetate 1 UNT/ML / Asco rbic Acid 20 MG/ML / Biotin 0.006 MG/ML / Cholecalciferol 20 UNT/ML / dexpanthenol 1.5 MG/ML / Folic Acid 0.06 MG/ML / Niacinamide 4 MG/ML / Pyridoxine Hydrochloride 0.6 MG/ML / retinyl palmitate 330 UNT/ML / Ribofl Infuvite Adult - Infuvite Adult - 03/24/2020 12:00:00 AM EDT active Infuvite Adult - eCW1 ([facility]) DiphenhydrAMINE HCl 50 MG/ML DiphenhydrAMINE HCl 50 MG/ML 12:00:00 AM EDT active DiphenhydrAMINE H Cl 50 MG/ML eCW1 ([facility]) DiphenhydrAMINE HCl 50 MG/ML DiphenhydrAMINE HCl 50 MG/ML 12:00:00 AM EDT active DiphenhydrAMINE H Cl 50 MG/ML eCW1 ([facility]) 200 ACTUAT Albuterol 0.09 MG/ACTUAT Mete red Dose Inhaler [Ventolin] Ventolin HFA 108 (90 Base) MCG/ACT Ventolin HFA 108 (90 Base) MCG/ACT 03/24/2020 12:00:00 AM EDT 1.0 {puff_as_needed} active Donovan tolin HFA 108 (90 Base) MCG/ACT eCW1 ([facility]) Heparin Lock Flush 100 UNIT/ML UNK 03/24/2020 12:00:00 AM EDT active Heparin Lock Flush 100 UNIT/ML eCW1 ([facility]) Amylases 99492 UNT / Endopeptidases 9500 UNT / Lipase 3000 UNT Delayed Release Oral Capsule [Creon] Creon [id number] UNIT Creon 4731-8501 UNIT 03/24/2020 12:00:00 AM EDT active Creon 30 00-9500 UNIT eCW1 ([facility]) Heparin Lock Flush 100 UNIT/ML UNK 03/24/2020 12:00:00 AM EDT active Heparin Lock Flush 100 UNIT/ML eCW1 ([facility]) Albuterol 0.83 MG/ML Inhalant Solution Albuterol Sulfa te (2.5 MG/3ML) 0.083% Albuterol Sulfate (2.5 MG/3ML) 0.083% 03/24/2020 12:00:00 AM EDT 3.0 {ml_as_needed} active Albuterol Sulfate (2.5 MG/3ML) 0.083% eCW1 ([facility]) Heparin Lock Flush 100 UNIT/ML UNK 03/24/2020 12:00:00 AM EDT active Heparin Lock Flush 100 UNIT/ML eCW1 ([facility]) 200 ACTUAT Albuterol 0.09 MG/ACTUAT Mete red Dose Inhaler [Ventolin] Ventolin HFA 108 (90 Base) MCG/ACT Ventolin HFA 108 (90 Base) MCG/ACT 03/24/2020 12:00:00 AM EDT 1.0 {puff_as_needed} active Donovan tolin HFA 108 (90 Base) MCG/ACT eCW1 ([facility]) 200 ACTUAT Albuterol 0.09 MG/ACTUAT Mete red Dose Inhaler [Ventolin] Ventolin HFA 108 (90 Base) MCG/ACT Ventolin HFA 108 (90 Base) MCG/ACT 03/24/2020 12:00:00 AM EDT 1.0 {puff_as_needed} active Donovan tolin HFA 108 (90 Base) MCG/ACT eCW1 ([facility]) Acetaminophen 500 MG Oral Tablet Acetaminophen 500 MG 2019 12:00:00 AM EDT 1.0 {tablet_as_needed} active A cetaminophen 500 MG eCW1 ([facility]) Acetaminophen 500 MG Oral Tablet Acetaminophen 500 MG 2019 12:00:00 AM EDT 1.0 {tablet_as_needed} active A cetaminophen 500 MG eCW1 ([facility]) Albuterol 0.83 MG/ML Inhalant Solution Albuterol Sulfa te (2.5 MG/3ML) 0.083% Albuterol Sulfate (2.5 MG/3ML) 0.083% 03/24/2020 12:00:00 AM EDT 3.0 {ml_as_needed} active Albuterol Sulfate (2.5 MG/3ML) 0.083% eCW1 ([facility]) 0.8 ML Enoxaparin sodium 100 MG/ML Prefi lled Syringe [Lovenox] Lovenox 80 MG/0.8ML Lovenox 80 MG/0.8ML 03/24/2020 12:00:00 AM EDT 0.7 {ml} active Lovenox 80 MG/0.8ML eCW1 ([facility]) Albuterol 0.83 MG/ML Inhalant Solution Albuterol Sulfa te (2.5 MG/3ML) 0.083% Albuterol Sulfate (2.5 MG/3ML) 0.083% 03/24/2020 12:00:00 AM EDT 3.0 {ml_as_needed} active Albuterol Sulfate (2.5 MG/3ML) 0.083% eCW1 ([facility]) alpha-Tocopherol Acetate 1 UNT/ML / Asco rbic Acid 20 MG/ML / Biotin 0.006 MG/ML / Cholecalciferol 20 UNT/ML / dexpanthenol 1.5 MG/ML / Folic Acid 0.06 MG/ML / Niacinamide 4 MG/ML / Pyridoxine Hydrochloride 0.6 MG/ML / retinyl palmitate 330 UNT/ML / Ribofl Infuvite Adult - Infuvite Adult - 03/24/2020 12:00:00 AM EDT active Infuvite Adult - eCW1 ([facility]) alpha-Tocopherol Acetate 1 UNT/ML / Asco rbic Acid 20 MG/ML / Biotin 0.006 MG/ML / Cholecalciferol 20 UNT/ML / dexpanthenol 1.5 MG/ML / Folic Acid 0.06 MG/ML / Niacinamide 4 MG/ML / Pyridoxine Hydrochloride 0.6 MG/ML / retinyl palmitate 330 UNT/ML / Ribofl Infuvite Adult - Infuvite Adult - 03/24/2020 12:00:00 AM EDT active Infuvite Adult - eCW1 ([facility]) Diphenhydramine Hydrochloride 50 MG/ML I njectable Solution DiphenhydrAMINE HCl 50 MG/ML DiphenhydrAMINE HCl 50 MG/ML 03/24/2020 12:00:00 AM EDT active DiphenhydrAMINE HCl 50 MG/ML eCW 1 ([facility]) 200 ACTUAT Albuterol 0.09 MG/ACTUAT Mete red Dose Inhaler [Ventolin] Ventolin HFA 108 (90 Base) MCG/ACT Ventolin HFA 108 (90 Base) MCG/ACT 03/24/2020 12:00:00 AM EDT 1.0 {puff_as_needed} active Donovan tolin HFA 108 (90 Base) MCG/ACT eCW1 ([facility]) Albuterol 0.83 MG/ML Inhalant Solution Albuterol Sulfa te (2.5 MG/3ML) 0.083% Albuterol Sulfate (2.5 MG/3ML) 0.083% 03/24/2020 12:00:00 AM EDT 3.0 {ml_as_needed} active Albuterol Sulfate (2.5 MG/3ML) 0.083% eCW1 ([facility]) Acetaminophen 500 MG Oral Tablet Acetaminophen 500 MG 2019 12:00:00 AM EDT 1.0 {tablet_as_needed} active A cetaminophen 500 MG eCW1 ([facility]) 200 ACTUAT Albuterol 0.09 MG/ACTUAT Mete red Dose Inhaler [Ventolin] Ventolin HFA 108 (90 Base) MCG/ACT Ventolin HFA 108 (90 Base) MCG/ACT 03/24/2020 12:00:00 AM EDT 1.0 {puff_as_needed} active Donovan tolin HFA 108 (90 Base) MCG/ACT eCW1 ([facility]) alpha-Tocopherol Acetate 1 UNT/ML / Asco rbic Acid 20 MG/ML / Biotin 0.006 MG/ML / Cholecalciferol 20 UNT/ML / dexpanthenol 1.5 MG/ML / Folic Acid 0.06 MG/ML / Niacinamide 4 MG/ML / Pyridoxine Hydrochloride 0.6 MG/ML / retinyl palmitate 330 UNT/ML / Ribofl Infuvite Adult - Infuvite Adult - 03/24/2020 12:00:00 AM EDT active Infuvite Adult - eCW1 ([facility]) 0.8 ML Enoxaparin sodium 100 MG/ML Prefi lled Syringe [Lovenox] Lovenox 80 MG/0.8ML Lovenox 80 MG/0.8ML 03/24/2020 12:00:00 AM EDT 0.7 {ml} active Lovenox 80 MG/0.8ML eCW1 ([facility]) Albuterol 0.83 MG/ML Inhalant Solution Albuterol Sulfa te (2.5 MG/3ML) 0.083% Albuterol Sulfate (2.5 MG/3ML) 0.083% 03/24/2020 12:00:00 AM EDT 3.0 {ml_as_needed} active Albuterol Sulfate (2.5 MG/3ML) 0.083% eCW1 ([facility]) alpha-Tocopherol Acetate 1 UNT/ML / Asco rbic Acid 20 MG/ML / Biotin 0.006 MG/ML / Cholecalciferol 20 UNT/ML / dexpanthenol 1.5 MG/ML / Folic Acid 0.06 MG/ML / Niacinamide 4 MG/ML / Pyridoxine Hydrochloride 0.6 MG/ML / retinyl palmitate 330 UNT/ML / Ribofl Infuvite Adult - Infuvite Adult - 03/24/2020 12:00:00 AM EDT active Infuvite Adult - eCW1 ([facility]) Amylases 22086 UNT / Endopeptidases 9500 UNT / Lipase 3000 UNT Delayed Release Oral Capsule [Creon] Creon [id number] UNIT Creon [id number] UNIT 03/24/2020 12:00:00 AM EDT active Creon 30 00-9500 UNIT eCW1 ([facility]) Diphenhydramine Hydrochloride 50 MG/ML I njectable Solution DiphenhydrAMINE HCl 50 MG/ML DiphenhydrAMINE HCl 50 MG/ML 03/24/2020 12:00:00 AM EDT active DiphenhydrAMINE HCl 50 MG/ML eCW 1 ([facility]) Heparin Lock Flush 100 UNIT/ML UNK 03/24/2020 12:00:00 AM EDT active Heparin Lock Flush 100 UNIT/ML eCW1 ([facility]) 200 ACTUAT Albuterol 0.09 MG/ACTUAT Mete red Dose Inhaler [Ventolin] Ventolin HFA 108 (90 Base) MCG/ACT Ventolin HFA 108 (90 Base) MCG/ACT 03/24/2020 12:00:00 AM EDT 1.0 {puff_as_needed} active Donovan tolin HFA 108 (90 Base) MCG/ACT eCW1 ([facility]) Albuterol 0.83 MG/ML Inhalant Solution Albuterol Sulfa te (2.5 MG/3ML) 0.083% Albuterol Sulfate (2.5 MG/3ML) 0.083% 03/24/2020 12:00:00 AM EDT 3.0 {ml_as_needed} active Albuterol Sulfate (2.5 MG/3ML) 0.083% eCW1 ([facility]) Acetaminophen 500 MG Oral Tablet Acetaminophen 500 MG 2019 12:00:00 AM EDT 1.0 {tablet_as_needed} active A cetaminophen 500 MG eCW1 ([facility]) alpha-Tocopherol Acetate 1 UNT/ML / Asco rbic Acid 20 MG/ML / Biotin 0.006 MG/ML / Cholecalciferol 20 UNT/ML / dexpanthenol 1.5 MG/ML / Folic Acid 0.06 MG/ML / Niacinamide 4 MG/ML / Pyridoxine Hydrochloride 0.6 MG/ML / retinyl palmitate 330 UNT/ML / Ribofl Infuvite Adult - Infuvite Adult - 03/24/2020 12:00:00 AM EDT active Infuvite Adult - eCW1 ([facility]) Albuterol 0.83 MG/ML Inhalant Solution Albuterol Sulfa te (2.5 MG/3ML) 0.083% Albuterol Sulfate (2.5 MG/3ML) 0.083% 03/24/2020 12:00:00 AM EDT 3.0 {ml_as_needed} active Albuterol Sulfate (2.5 MG/3ML) 0.083% eCW1 ([facility]) Heparin Lock Flush 100 UNIT/ML UNK 03/24/2020 12:00:00 AM EDT active Heparin Lock Flush 100 UNIT/ML eCW1 ([facility]) 0.8 ML Enoxaparin sodium 100 MG/ML Prefi lled Syringe [Lovenox] Lovenox 80 MG/0.8ML Lovenox 80 MG/0.8ML 03/24/2020 12:00:00 AM EDT 0.7 {ml} active Lovenox 80 MG/0.8ML eCW1 ([facility]) Acetaminophen 500 MG Oral Tablet Acetaminophen 500 MG 2019 12:00:00 AM EDT 1.0 {tablet_as_needed} active A cetaminophen 500 MG eCW1 ([facility]) alpha-Tocopherol Acetate 1 UNT/ML / Asco rbic Acid 20 MG/ML / Biotin 0.006 MG/ML / Cholecalciferol 20 UNT/ML / dexpanthenol 1.5 MG/ML / Folic Acid 0.06 MG/ML / Niacinamide 4 MG/ML / Pyridoxine Hydrochloride 0.6 MG/ML / retinyl palmitate 330 UNT/ML / Ribofl Infuvite Adult - Infuvite Adult - 03/24/2020 12:00:00 AM EDT active Infuvite Adult - eCW1 ([facility]) Heparin Lock Flush 100 UNIT/ML UNK 03/24/2020 12:00:00 AM EDT active Heparin Lock Flush 100 UNIT/ML eCW1 ([facility]) 0.8 ML Enoxaparin sodium 100 MG/ML Prefi lled Syringe [Lovenox] Lovenox 80 MG/0.8ML Lovenox 80 MG/0.8ML 03/24/2020 12:00:00 AM EDT 0.7 {ml} active Lovenox 80 MG/0.8ML eCW1 ([facility]) Albuterol 0.83 MG/ML Inhalant Solution Albuterol Sulfa te (2.5 MG/3ML) 0.083% Albuterol Sulfate (2.5 MG/3ML) 0.083% 03/24/2020 12:00:00 AM EDT 3.0 {ml_as_needed} active Albuterol Sulfate (2.5 MG/3ML) 0.083% eCW1 ([facility]) 1 ML Enoxaparin sodium 100 MG/ML Prefilled Syringe [Lo venox] Lovenox 100 MG/ML Lovenox 100 MG/ML 03/24/2020 12:00:00 AM EDT active Lovenox 100 MG/ML eCW1 ([facility]) 1 ML Enoxaparin sodium 100 MG/ML Prefilled Syringe [Lo venox] Lovenox 100 MG/ML Lovenox 100 MG/ML 03/24/2020 12:00:00 AM EDT active Lovenox 100 MG/ML eCW1 ([facility]) Heparin Lock Flush 100 UNIT/ML UNK 03/24/2020 12:00:00 AM EDT active Heparin Lock Flush 100 UNIT/ML eCW1 ([facility]) Acetaminophen 500 MG Oral Tablet Acetaminophen 500 MG 2019 12:00:00 AM EDT 1.0 {tablet_as_needed} active A cetaminophen 500 MG eCW1 ([facility]) DiphenhydrAMINE HCl 50 MG/ML DiphenhydrAMINE HCl 50 MG/ML 12:00:00 AM EDT active DiphenhydrAMINE H Cl 50 MG/ML eCW1 ([facility]) alpha-Tocopherol Acetate 1 UNT/ML / Asco rbic Acid 20 MG/ML / Biotin 0.006 MG/ML / Cholecalciferol 20 UNT/ML / dexpanthenol 1.5 MG/ML / Folic Acid 0.06 MG/ML / Niacinamide 4 MG/ML / Pyridoxine Hydrochloride 0.6 MG/ML / retinyl palmitate 330 UNT/ML / Ribofl Infuvite Adult - Infuvite Adult - 03/24/2020 12:00:00 AM EDT active Infuvite Adult - eCW1 ([facility]) alpha-Tocopherol Acetate 1 UNT/ML / Asco rbic Acid 20 MG/ML / Biotin 0.006 MG/ML / Cholecalciferol 20 UNT/ML / dexpanthenol 1.5 MG/ML / Folic Acid 0.06 MG/ML / Niacinamide 4 MG/ML / Pyridoxine Hydrochloride 0.6 MG/ML / retinyl palmitate 330 UNT/ML / Ribofl Infuvite Adult - Infuvite Adult - 03/24/2020 12:00:00 AM EDT active Infuvite Adult - eCW1 ([facility]) Heparin Lock Flush 100 UNIT/ML UNK 03/24/2020 12:00:00 AM EDT active Heparin Lock Flush 100 UNIT/ML eCW1 ([facility]) alpha-Tocopherol Acetate 1 UNT/ML / Asco rbic Acid 20 MG/ML / Biotin 0.006 MG/ML / Cholecalciferol 20 UNT/ML / dexpanthenol 1.5 MG/ML / Folic Acid 0.06 MG/ML / Niacinamide 4 MG/ML / Pyridoxine Hydrochloride 0.6 MG/ML / retinyl palmitate 330 UNT/ML / Ribofl Infuvite Adult - Infuvite Adult - 03/24/2020 12:00:00 AM EDT active Infuvite Adult - eCW1 (Formerly [facility]) DiphenhydrAMINE HCl 50 MG/ML DiphenhydrAMINE HCl 50 MG/ML 12:00:00 AM EDT active DiphenhydrAMINE H Cl 50 MG/ML eCW1 ([facility]) alpha-Tocopherol Acetate 1 UNT/ML / Asco rbic Acid 20 MG/ML / Biotin 0.006 MG/ML / Cholecalciferol 20 UNT/ML / dexpanthenol 1.5 MG/ML / Folic Acid 0.06 MG/ML / Niacinamide 4 MG/ML / Pyridoxine Hydrochloride 0.6 MG/ML / retinyl palmitate 330 UNT/ML / Ribofl Infuvite Adult - Infuvite Adult - 03/24/2020 12:00:00 AM EDT active Infuvite Adult - eCW1 (Formerly [facility]) 1 ML Enoxaparin sodium 100 MG/ML Prefilled Syringe [Lo venox] Lovenox 100 MG/ML Lovenox 100 MG/ML 03/24/2020 12:00:00 AM EDT active Lovenox 100 MG/ML eCW1 ([facility]) Amylases 68408 UNT / Endopeptidases 9500 UNT / Lipase 3000 UNT Delayed Release Oral Capsule [Creon] Creon [id number] UNIT Creon [id number] UNIT 03/24/2020 12:00:00 AM EDT active Creon 30 00-9500 UNIT eCW1 ([facility]) DiphenhydrAMINE HCl 50 MG/ML DiphenhydrAMINE HCl 50 MG/ML 12:00:00 AM EDT active DiphenhydrAMINE H Cl 50 MG/ML eCW1 ([facility]) 200 ACTUAT Albuterol 0.09 MG/ACTUAT Mete red Dose Inhaler [Ventolin] Ventolin HFA 108 (90 Base) MCG/ACT Ventolin HFA 108 (90 Base) MCG/ACT 03/24/2020 12:00:00 AM EDT 1.0 {puff_as_needed} active Donovan tolin HFA 108 (90 Base) MCG/ACT eCW1 ([facility]) 1 ML Enoxaparin sodium 100 MG/ML Prefilled Syringe [Lo venox] Lovenox 100 MG/ML Lovenox 100 MG/ML 03/24/2020 12:00:00 AM EDT active Lovenox 100 MG/ML eCW1 ([facility]) alpha-Tocopherol Acetate 1 UNT/ML / Asco rbic Acid 20 MG/ML / Biotin 0.006 MG/ML / Cholecalciferol 20 UNT/ML / dexpanthenol 1.5 MG/ML / Folic Acid 0.06 MG/ML / Niacinamide 4 MG/ML / Pyridoxine Hydrochloride 0.6 MG/ML / retinyl palmitate 330 UNT/ML / Ribofl Infuvite Adult - Infuvite Adult - 03/24/2020 12:00:00 AM EDT active Infuvite Adult - eCW1 ([facility]) 200 ACTUAT Albuterol 0.09 MG/ACTUAT Mete red Dose Inhaler [Ventolin] Ventolin HFA 108 (90 Base) MCG/ACT Ventolin HFA 108 (90 Base) MCG/ACT 03/24/2020 12:00:00 AM EDT 1.0 {puff_as_needed} active Donovan tolin HFA 108 (90 Base) MCG/ACT eCW1 ([facility]) DiphenhydrAMINE HCl 50 MG/ML DiphenhydrAMINE HCl 50 MG/ML 12:00:00 AM EDT active DiphenhydrAMINE H Cl 50 MG/ML eCW1 ([facility]) Acetaminophen 500 MG Oral Tablet Acetaminophen 500 MG 2019 12:00:00 AM EDT 1.0 {tablet_as_needed} active A cetaminophen 500 MG eCW1 ([facility]) Diphenhydramine Hydrochloride 50 MG/ML I njectable Solution DiphenhydrAMINE HCl 50 MG/ML DiphenhydrAMINE HCl 50 MG/ML 03/24/2020 12:00:00 AM EDT active DiphenhydrAMINE HCl 50 MG/ML eCW 1 ([facility]) 200 ACTUAT Albuterol 0.09 MG/ACTUAT Mete red Dose Inhaler [Ventolin] Ventolin HFA 108 (90 Base) MCG/ACT Ventolin HFA 108 (90 Base) MCG/ACT 03/24/2020 12:00:00 AM EDT 1.0 {puff_as_needed} active Donovan tolin HFA 108 (90 Base) MCG/ACT eCW1 ([facility]) Albuterol 0.83 MG/ML Inhalant Solution Albuterol Sulfa te (2.5 MG/3ML) 0.083% Albuterol Sulfate (2.5 MG/3ML) 0.083% 03/24/2020 12:00:00 AM EDT 3.0 {ml_as_needed} active Albuterol Sulfate (2.5 MG/3ML) 0.083% eCW1 ([facility]) Amylases 14916 UNT / Endopeptidases 9500 UNT / Lipase 3000 UNT Delayed Release Oral Capsule [Creon] Creon [id number] UNIT Creon [id number] UNIT 03/24/2020 12:00:00 AM EDT active Creon 30 00-9500 UNIT eCW1 ([facility]) Albuterol 0.83 MG/ML Inhalant Solution Albuterol Sulfa te (2.5 MG/3ML) 0.083% Albuterol Sulfate (2.5 MG/3ML) 0.083% 03/24/2020 12:00:00 AM EDT 3.0 {ml_as_needed} active Albuterol Sulfate (2.5 MG/3ML) 0.083% eCW1 ([facility]) Heparin Lock Flush 100 UNIT/ML UNK 03/24/2020 12:00:00 AM EDT active Heparin Lock Flush 100 UNIT/ML eCW1 ([facility]) Amylases 68741 UNT / Endopeptidases 9500 UNT / Lipase 3000 UNT Delayed Release Oral Capsule [Creon] Creon [id number] UNIT Creon [id number] UNIT 03/24/2020 12:00:00 AM EDT active Creon 30 00-9500 UNIT eCW1 ([facility]) DiphenhydrAMINE HCl 50 MG/ML DiphenhydrAMINE HCl 50 MG/ML 12:00:00 AM EDT active DiphenhydrAMINE H Cl 50 MG/ML eCW1 ([facility]) DiphenhydrAMINE HCl 50 MG/ML DiphenhydrAMINE HCl 50 MG/ML 12:00:00 AM EDT active DiphenhydrAMINE H Cl 50 MG/ML eCW1 ([facility]) 200 ACTUAT Albuterol 0.09 MG/ACTUAT Mete red Dose Inhaler [Ventolin] Ventolin HFA 108 (90 Base) MCG/ACT Ventolin HFA 108 (90 Base) MCG/ACT 03/24/2020 12:00:00 AM EDT 1.0 {puff_as_needed} active Donovan tolin HFA 108 (90 Base) MCG/ACT eCW1 ([facility]) Albuterol 0.83 MG/ML Inhalant Solution Albuterol Sulfa te (2.5 MG/3ML) 0.083% Albuterol Sulfate (2.5 MG/3ML) 0.083% 03/24/2020 12:00:00 AM EDT 3.0 {ml_as_needed} active Albuterol Sulfate (2.5 MG/3ML) 0.083% eCW1 ([facility]) Heparin Lock Flush 100 UNIT/ML UNK 03/24/2020 12:00:00 AM EDT active Heparin Lock Flush 100 UNIT/ML eCW1 ([facility]) 0.8 ML Enoxaparin sodium 100 MG/ML Prefi lled Syringe [Lovenox] Lovenox 80 MG/0.8ML Lovenox 80 MG/0.8ML 03/24/2020 12:00:00 AM EDT 0.7 {ml} active Lovenox 80 MG/0.8ML eCW1 ([facility]) alpha-Tocopherol Acetate 1 UNT/ML / Asco rbic Acid 20 MG/ML / Biotin 0.006 MG/ML / Cholecalciferol 20 UNT/ML / dexpanthenol 1.5 MG/ML / Folic Acid 0.06 MG/ML / Niacinamide 4 MG/ML / Pyridoxine Hydrochloride 0.6 MG/ML / retinyl palmitate 330 UNT/ML / Ribofl Infuvite Adult - Infuvite Adult - 03/24/2020 12:00:00 AM EDT active Infuvite Adult - eCW1 ([facility]) 1 ML Enoxaparin sodium 100 MG/ML Prefilled Syringe [Lo venox] Lovenox 100 MG/ML Lovenox 100 MG/ML 03/24/2020 12:00:00 AM EDT active Lovenox 100 MG/ML eCW1 ([facility]) Diphenhydramine Hydrochloride 50 MG/ML I njectable Solution DiphenhydrAMINE HCl 50 MG/ML DiphenhydrAMINE HCl 50 MG/ML 03/24/2020 12:00:00 AM EDT active DiphenhydrAMINE HCl 50 MG/ML eCW 1 ([facility]) DiphenhydrAMINE HCl 50 MG/ML DiphenhydrAMINE HCl 50 MG/ML 12:00:00 AM EDT active DiphenhydrAMINE H Cl 50 MG/ML eCW1 ([facility]) Heparin Lock Flush 100 UNIT/ML UNK 03/24/2020 12:00:00 AM EDT active Heparin Lock Flush 100 UNIT/ML eCW1 ([facility]) Albuterol 0.83 MG/ML Inhalant Solution Albuterol Sulfa te (2.5 MG/3ML) 0.083% Albuterol Sulfate (2.5 MG/3ML) 0.083% 03/24/2020 12:00:00 AM EDT 3.0 {ml_as_needed} active Albuterol Sulfate (2.5 MG/3ML) 0.083% eCW1 ([facility]) Amylases 22323 UNT / Endopeptidases 9500 UNT / Lipase 3000 UNT Delayed Release Oral Capsule [Creon] Creon [id number] UNIT Creon 9118-0011 UNIT 03/24/2020 12:00:00 AM EDT active Creon 30 00-9500 UNIT eCW1 ([facility]) alpha-Tocopherol Acetate 1 UNT/ML / Asco rbic Acid 20 MG/ML / Biotin 0.006 MG/ML / Cholecalciferol 20 UNT/ML / dexpanthenol 1.5 MG/ML / Folic Acid 0.06 MG/ML / Niacinamide 4 MG/ML / Pyridoxine Hydrochloride 0.6 MG/ML / retinyl palmitate 330 UNT/ML / Ribofl Infuvite Adult - Infuvite Adult - 03/24/2020 12:00:00 AM EDT active Infuvite Adult - eCW1 ([facility]) 0.8 ML Enoxaparin sodium 100 MG/ML Prefi lled Syringe [Lovenox] Lovenox 80 MG/0.8ML Lovenox 80 MG/0.8ML 03/24/2020 12:00:00 AM EDT 0.7 {ml} active Lovenox 80 MG/0.8ML eCW1 ([facility]) Heparin Lock Flush 100 UNIT/ML UNK 03/24/2020 12:00:00 AM EDT active Heparin Lock Flush 100 UNIT/ML eCW1 ([facility]) Acetaminophen 500 MG Oral Tablet Acetaminophen 500 MG 2019 12:00:00 AM EDT 1.0 {tablet_as_needed} active A cetaminophen 500 MG eCW1 ([facility]) Albuterol 0.83 MG/ML Inhalant Solution Albuterol Sulfa te (2.5 MG/3ML) 0.083% Albuterol Sulfate (2.5 MG/3ML) 0.083% 03/24/2020 12:00:00 AM EDT 3.0 {ml_as_needed} active Albuterol Sulfate (2.5 MG/3ML) 0.083% eCW1 ([facility]) Heparin Lock Flush 100 UNIT/ML UNK 03/24/2020 12:00:00 AM EDT active Heparin Lock Flush 100 UNIT/ML eCW1 ([facility]) 200 ACTUAT Albuterol 0.09 MG/ACTUAT Mete red Dose Inhaler [Ventolin] Ventolin HFA 108 (90 Base) MCG/ACT Ventolin HFA 108 (90 Base) MCG/ACT 03/24/2020 12:00:00 AM EDT 1.0 {puff_as_needed} active Donovan tolin HFA 108 (90 Base) MCG/ACT eCW1 ([facility]) Acetaminophen 500 MG Oral Tablet Acetaminophen 500 MG 2019 12:00:00 AM EDT 1.0 {tablet_as_needed} active A cetaminophen 500 MG eCW1 ([facility]) Albuterol 0.83 MG/ML Inhalant Solution Albuterol Sulfa te (2.5 MG/3ML) 0.083% Albuterol Sulfate (2.5 MG/3ML) 0.083% 03/24/2020 12:00:00 AM EDT 3.0 {ml_as_needed} active Albuterol Sulfate (2.5 MG/3ML) 0.083% eCW1 ([facility]) 200 ACTUAT Albuterol 0.09 MG/ACTUAT Mete red Dose Inhaler [Ventolin] Ventolin HFA 108 (90 Base) MCG/ACT Ventolin HFA 108 (90 Base) MCG/ACT 03/24/2020 12:00:00 AM EDT 1.0 {puff_as_needed} active Donovan tolin HFA 108 (90 Base) MCG/ACT eCW1 ([facility]) 1 ML Enoxaparin sodium 100 MG/ML Prefilled Syringe [Lo venox] Lovenox 100 MG/ML Lovenox 100 MG/ML 03/24/2020 12:00:00 AM EDT active Lovenox 100 MG/ML eCW1 ([facility]) 200 ACTUAT Albuterol 0.09 MG/ACTUAT Mete red Dose Inhaler [Ventolin] Ventolin HFA 108 (90 Base) MCG/ACT Ventolin HFA 108 (90 Base) MCG/ACT 03/24/2020 12:00:00 AM EDT 1.0 {puff_as_needed} active Donovan tolin HFA 108 (90 Base) MCG/ACT eCW1 ([facility]) 200 ACTUAT Albuterol 0.09 MG/ACTUAT Mete red Dose Inhaler [Ventolin] Ventolin HFA 108 (90 Base) MCG/ACT Ventolin HFA 108 (90 Base) MCG/ACT 03/24/2020 12:00:00 AM EDT 1.0 {puff_as_needed} active Donovan tolin HFA 108 (90 Base) MCG/ACT eCW1 ([facility]) alpha-Tocopherol Acetate 1 UNT/ML / Asco rbic Acid 20 MG/ML / Biotin 0.006 MG/ML / Cholecalciferol 20 UNT/ML / dexpanthenol 1.5 MG/ML / Folic Acid 0.06 MG/ML / Niacinamide 4 MG/ML / Pyridoxine Hydrochloride 0.6 MG/ML / retinyl palmitate 330 UNT/ML / Ribofl Infuvite Adult - Infuvite Adult - 03/24/2020 12:00:00 AM EDT active Infuvite Adult - eCW1 ([facility]) 200 ACTUAT Albuterol 0.09 MG/ACTUAT Mete red Dose Inhaler [Ventolin] Ventolin HFA 108 (90 Base) MCG/ACT Ventolin HFA 108 (90 Base) MCG/ACT 03/24/2020 12:00:00 AM EDT 1.0 {puff_as_needed} active Donovan tolin HFA 108 (90 Base) MCG/ACT eCW1 ([facility]) 0.8 ML Enoxaparin sodium 100 MG/ML Prefi lled Syringe [Lovenox] Lovenox 80 MG/0.8ML Lovenox 80 MG/0.8ML 03/24/2020 12:00:00 AM EDT 0.7 {ml} active Lovenox 80 MG/0.8ML eCW1 ([facility]) Amylases 65256 UNT / Endopeptidases 9500 UNT / Lipase 3000 UNT Delayed Release Oral Capsule [Creon] Creon [id number] UNIT Creon [id number] UNIT 03/24/2020 12:00:00 AM EDT active Creon 30 00-9500 UNIT eCW1 ([facility]) Albuterol 0.83 MG/ML Inhalant Solution Albuterol Sulfa te (2.5 MG/3ML) 0.083% Albuterol Sulfate (2.5 MG/3ML) 0.083% 03/24/2020 12:00:00 AM EDT 3.0 {ml_as_needed} active Albuterol Sulfate (2.5 MG/3ML) 0.083% eCW1 ([facility]) Heparin Lock Flush 100 UNIT/ML UNK 03/24/2020 12:00:00 AM EDT active Heparin Lock Flush 100 UNIT/ML eCW1 ([facility]) 0.8 ML Enoxaparin sodium 100 MG/ML Prefi lled Syringe [Lovenox] Lovenox 80 MG/0.8ML Lovenox 80 MG/0.8ML 03/24/2020 12:00:00 AM EDT 0.7 {ml} active Lovenox 80 MG/0.8ML eCW1 ([facility]) Heparin Lock Flush 100 UNIT/ML UNK 03/24/2020 12:00:00 AM EDT active Heparin Lock Flush 100 UNIT/ML eCW1 ([facility]) alpha-Tocopherol Acetate 1 UNT/ML / Asco rbic Acid 20 MG/ML / Biotin 0.006 MG/ML / Cholecalciferol 20 UNT/ML / dexpanthenol 1.5 MG/ML / Folic Acid 0.06 MG/ML / Niacinamide 4 MG/ML / Pyridoxine Hydrochloride 0.6 MG/ML / retinyl palmitate 330 UNT/ML / Ribofl Infuvite Adult - Infuvite Adult - 03/24/2020 12:00:00 AM EDT active Infuvite Adult - eCW1 ([facility]) Heparin Lock Flush 100 UNIT/ML UNK 03/24/2020 12:00:00 AM EDT active Heparin Lock Flush 100 UNIT/ML eCW1 ([facility]) 200 ACTUAT Albuterol 0.09 MG/ACTUAT Mete red Dose Inhaler [Ventolin] Ventolin HFA 108 (90 Base) MCG/ACT Ventolin HFA 108 (90 Base) MCG/ACT 03/24/2020 12:00:00 AM EDT 1.0 {puff_as_needed} active Donovan tolin HFA 108 (90 Base) MCG/ACT eCW1 ([facility]) Acetaminophen 500 MG Oral Tablet Acetaminophen 500 MG 2019 12:00:00 AM EDT 1.0 {tablet_as_needed} active A cetaminophen 500 MG eCW1 ([facility]) Albuterol 0.83 MG/ML Inhalant Solution Albuterol Sulfa te (2.5 MG/3ML) 0.083% Albuterol Sulfate (2.5 MG/3ML) 0.083% 03/24/2020 12:00:00 AM EDT 3.0 {ml_as_needed} active Albuterol Sulfate (2.5 MG/3ML) 0.083% eCW1 ([facility]) 200 ACTUAT Albuterol 0.09 MG/ACTUAT Mete red Dose Inhaler [Ventolin] Ventolin HFA 108 (90 Base) MCG/ACT Ventolin HFA 108 (90 Base) MCG/ACT 03/24/2020 12:00:00 AM EDT 1.0 {puff_as_needed} active Donovan tolin HFA 108 (90 Base) MCG/ACT eCW1 ([facility]) Acetaminophen 500 MG Oral Tablet Acetaminophen 500 MG 2019 12:00:00 AM EDT 1.0 {tablet_as_needed} active A cetaminophen 500 MG eCW1 ([facility]) alpha-Tocopherol Acetate 1 UNT/ML / Asco rbic Acid 20 MG/ML / Biotin 0.006 MG/ML / Cholecalciferol 20 UNT/ML / dexpanthenol 1.5 MG/ML / Folic Acid 0.06 MG/ML / Niacinamide 4 MG/ML / Pyridoxine Hydrochloride 0.6 MG/ML / retinyl palmitate 330 UNT/ML / Ribofl Infuvite Adult - Infuvite Adult - 03/24/2020 12:00:00 AM EDT active Infuvite Adult - eCW1 ([facility]) DiphenhydrAMINE HCl 50 MG/ML DiphenhydrAMINE HCl 50 MG/ML 12:00:00 AM EDT active DiphenhydrAMINE H Cl 50 MG/ML eCW1 ([facility]) Albuterol 0.83 MG/ML Inhalant Solution Albuterol Sulfa te (2.5 MG/3ML) 0.083% Albuterol Sulfate (2.5 MG/3ML) 0.083% 03/24/2020 12:00:00 AM EDT 3.0 {ml_as_needed} active Albuterol Sulfate (2.5 MG/3ML) 0.083% eCW1 ([facility]) Acetaminophen 500 MG Oral Tablet Acetaminophen 500 MG 2019 12:00:00 AM EDT 1.0 {tablet_as_needed} active A cetaminophen 500 MG eCW1 ([facility]) alpha-Tocopherol Acetate 1 UNT/ML / Asco rbic Acid 20 MG/ML / Biotin 0.006 MG/ML / Cholecalciferol 20 UNT/ML / dexpanthenol 1.5 MG/ML / Folic Acid 0.06 MG/ML / Niacinamide 4 MG/ML / Pyridoxine Hydrochloride 0.6 MG/ML / retinyl palmitate 330 UNT/ML / Ribofl Infuvite Adult - Infuvite Adult - 03/24/2020 12:00:00 AM EDT active Infuvite Adult - eCW1 ([facility]) 0.8 ML Enoxaparin sodium 100 MG/ML Prefi lled Syringe [Lovenox] Lovenox 80 MG/0.8ML Lovenox 80 MG/0.8ML 03/24/2020 12:00:00 AM EDT 0.7 {ml} active Lovenox 80 MG/0.8ML eCW1 ([facility]) Acetaminophen 500 MG Oral Tablet Acetaminophen 500 MG 2019 12:00:00 AM EDT 1.0 {tablet_as_needed} active A cetaminophen 500 MG eCW1 ([facility]) Heparin Lock Flush 100 UNIT/ML UNK 03/24/2020 12:00:00 AM EDT active Heparin Lock Flush 100 UNIT/ML eCW1 ([facility]) 1 ML Enoxaparin sodium 100 MG/ML Prefilled Syringe [Lo venox] Lovenox 100 MG/ML Lovenox 100 MG/ML 03/24/2020 12:00:00 AM EDT active Lovenox 100 MG/ML eCW1 ([facility]) DiphenhydrAMINE HCl 50 MG/ML DiphenhydrAMINE HCl 50 MG/ML 12:00:00 AM EDT active DiphenhydrAMINE H Cl 50 MG/ML eCW1 ([facility]) Heparin Lock Flush 100 UNIT/ML UNK 03/24/2020 12:00:00 AM EDT active Heparin Lock Flush 100 UNIT/ML eCW1 ([facility]) Acetaminophen 500 MG Oral Tablet Acetaminophen 500 MG 2019 12:00:00 AM EDT 1.0 {tablet_as_needed} active A cetaminophen 500 MG eCW1 ([facility]) alpha-Tocopherol Acetate 1 UNT/ML / Asco rbic Acid 20 MG/ML / Biotin 0.006 MG/ML / Cholecalciferol 20 UNT/ML / dexpanthenol 1.5 MG/ML / Folic Acid 0.06 MG/ML / Niacinamide 4 MG/ML / Pyridoxine Hydrochloride 0.6 MG/ML / retinyl palmitate 330 UNT/ML / Ribofl Infuvite Adult - Infuvite Adult - 03/24/2020 12:00:00 AM EDT active Infuvite Adult - eCW1 ([facility]) Albuterol 0.83 MG/ML Inhalant Solution Albuterol Sulfa te (2.5 MG/3ML) 0.083% Albuterol Sulfate (2.5 MG/3ML) 0.083% 03/24/2020 12:00:00 AM EDT 3.0 {ml_as_needed} active Albuterol Sulfate (2.5 MG/3ML) 0.083% eCW1 ([facility]) Diphenhydramine Hydrochloride 50 MG/ML I njectable Solution DiphenhydrAMINE HCl 50 MG/ML DiphenhydrAMINE HCl 50 MG/ML 03/24/2020 12:00:00 AM EDT active DiphenhydrAMINE HCl 50 MG/ML eCW 1 ([facility]) Diphenhydramine Hydrochloride 50 MG/ML I njectable Solution DiphenhydrAMINE HCl 50 MG/ML DiphenhydrAMINE HCl 50 MG/ML 03/24/2020 12:00:00 AM EDT active DiphenhydrAMINE HCl 50 MG/ML eCW 1 ([facility]) Albuterol 0.83 MG/ML Inhalant Solution Albuterol Sulfa te (2.5 MG/3ML) 0.083% Albuterol Sulfate (2.5 MG/3ML) 0.083% 03/24/2020 12:00:00 AM EDT 3.0 {ml_as_needed} active Albuterol Sulfate (2.5 MG/3ML) 0.083% eCW1 ([facility]) Heparin Lock Flush 100 UNIT/ML UNK 03/24/2020 12:00:00 AM EDT active Heparin Lock Flush 100 UNIT/ML eCW1 ([facility]) Amylases 11901 UNT / Endopeptidases 9500 UNT / Lipase 3000 UNT Delayed Release Oral Capsule [Creon] Creon [id number] UNIT Creon [id number] UNIT 03/24/2020 12:00:00 AM EDT active Creon 30 00-9500 UNIT eCW1 ([facility]) Acetaminophen 500 MG Oral Tablet Acetaminophen 500 MG 2019 12:00:00 AM EDT 1.0 {tablet_as_needed} active A cetaminophen 500 MG eCW1 ([facility]) Acetaminophen 500 MG Oral Tablet Acetaminophen 500 MG 2019 12:00:00 AM EDT 1.0 {tablet_as_needed} active A cetaminophen 500 MG eCW1 ([facility]) Acetaminophen 500 MG Oral Tablet Acetaminophen 500 MG 2019 12:00:00 AM EDT 1.0 {tablet_as_needed} active A cetaminophen 500 MG eCW1 ([facility]) 0.8 ML Enoxaparin sodium 100 MG/ML Prefi lled Syringe [Lovenox] Lovenox 80 MG/0.8ML Lovenox 80 MG/0.8ML 03/24/2020 12:00:00 AM EDT 0.7 {ml} active Lovenox 80 MG/0.8ML eCW1 ([facility]) Relizorb Device [id number] 03/22/2020 12:00:00 AM EDT 1 { each} Does not apply completed Pancreatic insufficiency 1 each by Does not apply route once for 1 dose [facility] Pancreatic insufficiency Misc. Devices (DURABLE MEDICAL EQUIPMENT SEE SIG) XX [facility] [phone] 03/15/2020 12:00:00 AM EDT act lucia Chronic narcotic useOn total parenteral nutrition (TPN)History of Nadege-en-Y gastric bypassAnticoagulatedDietary counseling and surveillanceBody mass index (BMI) 22.0-22.9, adultFunctional diarrheaStatus post bariatric surgeryJejunostomy tube site painFailure to thrive in adultAdult failure to thrive syndromeGastroparesis Use as directed. [employer] Peptide 1.5 Tube Feed 2.84 bottles a day or 923 ml a day. 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 Devices (DURABLE MEDICAL EQUIPMENT SEE SIG) XX [facility] 97 [phone] 03/15/2020 12:00:00 AM EDT act lucia Chronic narcotic useOn total parenteral nutrition (TPN)History of Nadege-en-Y gastric bypassAnticoagulatedDietary counseling and surveillanceBody mass index (BMI) 22.0-22.9, adultFunctional diarrheaStatus post bariatric surgeryJejunostomy tube site painFailure to thrive in adultAdult failure to thrive syndromeGastroparesis Use as directed. AMT mini on e 20 fr. 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 Devices (DURABLE MEDICAL EQUIPMENT SEE SIG) XX [facility] 97 [phone] 03/02/2020 12:00:00 AM EDT act lucia Body mass index (BMI) 22.0-22.9, adultFunctional diarrheaStatus post bariatric surgeryJejunostomy tube site painFailure to thrive in adultAdult failure to thrive syndromeGastroparesis Use as directed. Enteral Feeds: Vital AF 1.2 calorie, 5 bottles per day(150/month). With 5 months of refills. 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 Devices (DURABLE MEDICAL EQUIPMENT SEE SIG) XX [facility] 97 [phone] 02/17/2020 12:00:00 AM EDT active Use as directed. Enteral feeds: Vital AF 1.2 calorie , 5 bottles per day. (150 per month) [facility] Mis. Devices (DURABLE MEDICAL EQUIPMENT SEE SIG) XX [facility] 97 [phone] 02/10/2020 12:00:00 AM EDT active Use as directed. Zhane-Chaves button gastrostomy tube 6.5 cm length. [facility] Zolpidem tartrate 5 MG Oral Tablet Zolpidem Tartrate 5 MG Zolpidem Tartrate 5 MG 02/04/2020 12:00:00 AM EDT active 1 tablet at bedtime eCW1 ([facility]) Zolpidem tartrate 5 MG Oral Tablet Zolpidem Tartrate 5 MG Zolpidem Tartrate 5 MG 02/04/2020 12:00:00 AM EDT 1.0 {tablet_at_bedtime} active Zolpidem Tartrate 5 MG eCW1 ([facility]) Zolpidem tartrate 5 MG Oral Tablet Zolpidem Tartrate 5 MG Zolpidem Tartrate 5 MG 02/04/2020 12:00:00 AM EDT 1.0 {tablet_at_bedtime} active Zolpidem Tartrate 5 MG eCW1 ([facility]) Zolpidem tartrate 5 MG Oral Tablet Zolpidem Tartrate 5 MG Zolpidem Tartrate 5 MG 02/04/2020 12:00:00 AM EDT active 1 tablet at bedtime eCW1 ([facility]) Zolpidem tartrate 5 MG Oral Tablet Zolpidem Tartrate 5 MG Zolpidem Tartrate 5 MG 02/04/2020 12:00:00 AM EDT active 1 tablet at bedtime eCW1 ([facility]) Methadone Hydrochloride 5 MG Oral Tablet Methadone HCl 5 MG Oral Tablet (DOLOPHINE) Methadone HCl 5 MG Oral Tablet (DOLOPHINE) 01/28/2020 12:00:00 AM EDT aborted TAKE 1 T ABLET BY MOUTH TWICE DAILY . DO NOT EXCEED 2 PER 24 HOURS [facility] 0.8 ML Enoxaparin sodium 100 MG/ML Prefi lled Syringe Enoxaparin Sodium 80 MG/0.8ML Subcutaneous Solution (LOVENOX) Enoxaparin Sodium 80 MG/0.8ML Subcutaneous Solution (LOVENOX) 01/08/2020 12:00:00 AM EDT aborted [facility] 0.8 ML Enoxaparin sodium 100 MG/ML Prefi lled Syringe [Lovenox] Lovenox 80 MG/0.8ML Lovenox 80 MG/0.8ML 01/07/2020 12:00:00 AM EDT active 0.7 ml eCW1 ([facility]) 0.8 ML Enoxaparin sodium 100 MG/ML Prefi lled Syringe [Lovenox] Lovenox 80 MG/0.8ML Lovenox 80 MG/0.8ML 01/07/2020 12:00:00 AM EDT active 0.7 ml eCW1 ([facility]) 0.8 ML Enoxaparin sodium 100 MG/ML Prefi lled Syringe [Lovenox] Lovenox 80 MG/0.8ML Lovenox 80 MG/0.8ML 01/07/2020 12:00:00 AM EDT active 0.7 ml eCW1 ([facility]) 0.8 ML Enoxaparin sodium 100 MG/ML Prefi lled Syringe [Lovenox] Lovenox 80 MG/0.8ML Lovenox 80 MG/0.8ML 01/07/2020 12:00:00 AM EDT active 0.7 ml eCW1 ([facility]) Invanz 1 GM Invanz 1 GM 01/05/2020 12:00:00 AM EDT suspended as directed eCW1 ([facility]) Invanz 1 GM Invanz 1 GM 01/05/2020 12:00:00 AM EDT active as directed eCW1 ([facility]) Invanz 1 GM Invanz 1 GM 01/05/2020 12:00:00 AM EDT suspended as directed eCW1 ([facility]) Invanz 1 GM Invanz 1 GM 01/05/2020 12:00:00 AM EDT active as directed eCW1 ([facility]) Sodium Chloride 0.9 % Intravenous Solution [id number] 01/05/2020 12:00:00 AM EDT aborted [facility] Nystatin 214759 UNT/ML Topical Cream Nystatin 711151 U NIT/GM Nystatin 354917 UNIT/GM 01/04/2020 12:00:00 AM EDT active 1 application eCW1 ([facility]) Nystatin 037898 UNT/ML Topical Cream Nystatin 536239 U NIT/GM Nystatin 500887 UNIT/GM 01/04/2020 12:00:00 AM EDT 1.0 {application} active Nystatin 321614 UNIT/GM eCW1 ([facility]) Nystatin 393589 UNT/ML Topical Cream Nystatin 839218 U NIT/GM Nystatin 376894 UNIT/GM 01/04/2020 12:00:00 AM EDT suspended 1 application eCW1 ([facility]) Nystatin 595094 UNT/ML Topical Cream Nystatin 933055 U NIT/GM Nystatin 019260 UNIT/GM 01/04/2020 12:00:00 AM EDT 1.0 {application} active Nystatin 611797 UNIT/GM eCW1 ([facility]) Nystatin 847218 UNT/ML Topical Cream Nystatin 239539 U NIT/GM Nystatin 709278 UNIT/GM 01/04/2020 12:00:00 AM EDT active 1 application eCW1 ([facility]) Nystatin 288228 UNT/ML Topical Cream Nystatin 892188 U NIT/GM Nystatin 341428 UNIT/GM 01/04/2020 12:00:00 AM EDT 1.0 {application} active Nystatin 589171 UNIT/GM eCW1 ([facility]) Nystatin 686256 UNT/ML Topical Cream Nystatin 491215 U NIT/GM Nystatin 968530 UNIT/GM 01/04/2020 12:00:00 AM EDT 1.0 {application} active Nystatin 883851 UNIT/GM eCW1 ([facility]) Nystatin 790950 UNT/ML Topical Cream Nystatin 020390 U NIT/GM Nystatin 786525 UNIT/GM 01/04/2020 12:00:00 AM EDT 1.0 {application} active Nystatin 743050 UNIT/GM eCW1 ([facility]) Nystatin 292448 UNT/ML Topical Cream Nystatin 925359 U NIT/GM Nystatin 787365 UNIT/GM 01/04/2020 12:00:00 AM EDT 1.0 {application} active Nystatin 186826 UNIT/GM eCW1 ([facility]) Nystatin 496292 UNT/ML Topical Cream Nystatin 940266 U NIT/GM Nystatin 446252 UNIT/GM 01/04/2020 12:00:00 AM EDT 1.0 {application} active Nystatin 449422 UNIT/GM eCW1 ([facility]) Nystatin 490223 UNT/ML Topical Cream Nystatin 444069 U NIT/GM Nystatin 077289 UNIT/GM 01/04/2020 12:00:00 AM EDT 1.0 {application} active Nystatin 020764 UNIT/GM eCW1 ([facility]) Meropenem 1 GM Meropenem 1 GM 01/04/2020 12:00:00 AM EDT active as directed eCW1 ([facility]) Nystatin 349603 UNT/ML Topical Cream Nystatin 741385 U NIT/GM Nystatin 398603 UNIT/GM 01/04/2020 12:00:00 AM EDT 1.0 {application} active Nystatin 965736 UNIT/GM eCW1 ([facility]) Nystatin 095174 UNT/ML Topical Cream Nystatin 310933 U NIT/GM Nystatin 397109 UNIT/GM 01/04/2020 12:00:00 AM EDT 1.0 {application} active Nystatin 137465 UNIT/GM eCW1 ([facility]) Nystatin 578181 UNT/ML Topical Cream Nys tatin 438314 UNIT/GM External Cream (MYCOSTATIN) Nystatin 924570 UNIT/GM External Cream (MYCOSTATIN) 12:00:00 AM EDT active APPLY CR EAM TOPICALLY TWICE DAILY [facility] Nystatin 910123 UNT/ML Topical Cream Nystatin 170569 U NIT/GM Nystatin 870473 UNIT/GM 01/04/2020 12:00:00 AM EDT 1.0 {application} active Nystatin 507040 UNIT/GM eCW1 ([facility]) Nystatin 672675 UNT/ML Topical Cream Nystatin 876538 U NIT/GM Nystatin 007969 UNIT/GM 01/04/2020 12:00:00 AM EDT suspended 1 application eCW1 ([facility]) Nystatin 898118 UNT/ML Topical Cream Nystatin 637780 U NIT/GM Nystatin 803850 UNIT/GM 01/04/2020 12:00:00 AM EDT 1.0 {application} active Nystatin 571434 UNIT/GM eCW1 ([facility]) Glucagon 3 MG/DOSE UNK 11/24/2019 12:00:00 AM EST active Glucagon 3 MG/DOSE eCW1 ([facility]) Zolpidem tartrate 6.25 MG Extended Relea se Oral Tablet Zolpidem Tartrate ER 6.25 MG Zolpidem Tartrate ER 6.25 MG 11/24/2019 12:00:00 AM EST active 1 tablet eCW1 ([facility]) Glucagon 3 MG/DOSE UNK 11/24/2019 12:00:00 AM EST active as directed eCW1 ([facility]) Glucagon 3 MG/DOSE UNK 11/24/2019 12:00:00 AM EST active Glucagon 3 MG/DOSE eCW1 ([facility]) Glucagon 3 MG/DOSE UNK 11/24/2019 12:00:00 AM EST active Glucagon 3 MG/DOSE eCW1 ([facility]) Zolpidem tartrate 6.25 MG Extended Relea se Oral Tablet Zolpidem Tartrate ER 6.25 MG Zolpidem Tartrate ER 6.25 MG 11/24/2019 12:00:00 AM EST active 1 tablet at bedtime as needed eCW1 ([facility]) Glucagon 3 MG/DOSE UNK 11/24/2019 12:00:00 AM EST active Glucagon 3 MG/DOSE eCW1 ([facility]) Glucagon 3 MG/DOSE UNK 11/24/2019 12:00:00 AM EST active Glucagon 3 MG/DOSE eCW1 ([facility]) Glucagon 3 MG/DOSE UNK 11/24/2019 12:00:00 AM EST active as directed eCW1 ([facility]) Glucagon 3 MG/DOSE UNK 11/24/2019 12:00:00 AM EST active Glucagon 3 MG/DOSE eCW1 ([facility]) Glucagon 3 MG/DOSE UNK 11/24/2019 12:00:00 AM EST active Glucagon 3 MG/DOSE eCW1 ([facility]) Glucagon 3 MG/DOSE UNK 11/24/2019 12:00:00 AM EST active Glucagon 3 MG/DOSE eCW1 ([facility]) Glucagon 3 MG/DOSE UNK 11/24/2019 12:00:00 AM EST active Glucagon 3 MG/DOSE eCW1 ([facility]) Glucagon 3 MG/DOSE UNK 11/24/2019 12:00:00 AM EST active Glucagon 3 MG/DOSE eCW1 ([facility]) Zolpidem tartrate 6.25 MG Extended Relea se Oral Tablet Zolpidem Tartrate ER 6.25 MG Zolpidem Tartrate ER 6.25 MG 11/24/2019 12:00:00 AM EST active 1 tablet eCW1 ([facility]) Glucagon 3 MG/DOSE UNK 11/24/2019 12:00:00 AM EST active Glucagon 3 MG/DOSE eCW1 ([facility]) Glucagon 3 MG/DOSE UNK 11/24/2019 12:00:00 AM EST active Glucagon 3 MG/DOSE eCW1 ([facility]) Glucagon 3 MG/DOSE UNK 11/24/2019 12:00:00 AM EST active Glucagon 3 MG/DOSE eCW1 ([facility]) Glucagon 3 MG/DOSE UNK 11/24/2019 12:00:00 AM EST active Glucagon 3 MG/DOSE eCW1 ([facility]) Zolpidem tartrate 6.25 MG Extended Relea se Oral Tablet Zolpidem Tartrate ER 6.25 MG Zolpidem Tartrate ER 6.25 MG 11/24/2019 12:00:00 AM EST active 1 tablet at bedtime as needed eCW1 ([facility]) Glucagon 3 MG/DOSE UNK 11/24/2019 12:00:00 AM EST active as directed eCW1 ([facility]) Glucagon 3 MG/DOSE UNK 11/24/2019 12:00:00 AM EST active as directed eCW1 ([facility]) Glucagon 3 MG/DOSE UNK 11/24/2019 12:00:00 AM EST active Glucagon 3 MG/DOSE eCW1 ([facility]) Glucagon 3 MG/DOSE UNK 11/24/2019 12:00:00 AM EST active Glucagon 3 MG/DOSE eCW1 ([facility]) Glucagon 3 MG/DOSE UNK 11/24/2019 12:00:00 AM EST active Glucagon 3 MG/DOSE eCW1 ([facility]) Zolpidem tartrate 6.25 MG Extended Relea se Oral Tablet Zolpidem Tartrate ER 6.25 MG Zolpidem Tartrate ER 6.25 MG 11/24/2019 12:00:00 AM EST active 1 tablet at bedtime as needed eCW1 ([facility]) Glucagon 3 MG/DOSE UNK 11/24/2019 12:00:00 AM EST active Glucagon 3 MG/DOSE eCW1 ([facility]) Zolpidem tartrate 6.25 MG Extended Relea se Oral Tablet Zolpidem Tartrate ER 6.25 MG Zolpidem Tartrate ER 6.25 MG 11/24/2019 12:00:00 AM EST active 1 tablet at bedtime as needed eCW1 ([facility]) Glucagon 3 MG/DOSE UNK 11/24/2019 12:00:00 AM EST active Glucagon 3 MG/DOSE eCW1 ([facility]) Glucagon 3 MG/DOSE UNK 11/24/2019 12:00:00 AM EST active Glucagon 3 MG/DOSE eCW1 ([facility]) Glucagon 3 MG/DOSE UNK 11/24/2019 12:00:00 AM EST active as directed eCW1 ([facility]) diphenhydrAMINE HCl 50 MG/ML Injection Solution (BENADRYL) 6 7457-124-10 11/13/2019 12:00:00 AM EST 50 mg Given by IV active 50 mg by Given by IV route every 12 (twelve) hours [facility]. Devices (DURABLE MEDICAL EQUIPMENT SEE SIG) XX [facility] 97 [phone] 11/10/2019 12:00:00 AM EST abo rted Jejunostomy tube presentChronic narcotic useOn total parenteral nutrition (TPN)History of Nadege-en-Y gastric bypassAnticoagulatedDietary counseling and surveillanceBody mass index (BMI) 22.0-22.9, adultFunctional diarrheaFailure to thrive in adultStatus post bariatric surgery Use as directed. Please draw the following labs weekly: CMP, Mg, Phos, CBC and diff, prealbumin. And a monthly triglyceride. Thank you. [facility] Jejunostomy tube present Chronic narcotic [...] Starting Sat11/02/19 at 1239, For 30 days [facility] Medication administered onsite alteplase (CATHFLO) injection 2 mg 14190 11/02/2019 09:00:00 AM EST 2 mg Intracatheter completed 2 mg, Intra catheter, Once, Sat11/02/19 at 0900, For 1 dose
To be instilled by PICC team or IR nurse only for at least 30 minutesTo affected port
[facility] Medication administered onsite 1 ML [...] Heparin 10 units/mL. Reference Policy [facility] Central Line Policy.
[facility] Medication administered onsite sodium chloride (preservative free) 0.9 % flush 10 mL 84262- 186-00 11/02/2019 09:00:00 AM EST 10 mL Intravenous active 10 mL, Intravenous, Every 12 hours, First dose on Sat11/02/19 at 0900, For 30 days
WHEN NOT IN USE - Verify blood return before use. Flush with 10 mL of Sodium Chloride 0.9 % and 2 mL Heparin 10 units/mL. Reference Policy [facility] Central Line Policy.
[facility] Medication administered onsite sodium chloride (preservative free) 0.9 % flush 10 mL 28948- 186-11/02/2019 08:45:14 AM EST 10 mL Intravenous active 10 mL, Intravenous, PRN, Line Care, Starting Sat11/02/19 at 0845, For 30 days
Verify blood return before use. Flush with 10 mL of Sodium Chloride 0.9 % before and after infusions or blood sampling followed-by 2 mL Heparin 10 units/mL to lock. Reference Policy [facility] Central Line Policy.
[facility] Medication administered onsite 1 ML heparin sodium, porcine 10 UNT/ML I njection heparin lock flush 10 UNIT/ML injection 20 Units heparin lock flush 10 UNIT/ML injection 20 Units 11/02 08:45:14 AM EST 20 U Intravenous active 20 Units, Intravenous, PRN, Line Care, Starting Sat11/02/19 at 0845, For 30 days
Verify blood return before use. Flush with 10 mL of Sodium Chloride 0.9 % before and after infusions or blood sampling followed-by 2 mL Heparin 10 units/mL to lock. Reference Policy [facility]34 Central Line Policy.
[facility] Medication administered onsite Loperamide Hydrochloride 2 MG Oral Capsu le Loperamide HCl 2 MG Oral Capsule (IMODIUM) Loperamide HCl 2 MG Oral Capsule (IMODIUM) 11/02/2019 12:00: 00 AM EST 2 mg Oral active Take 1 capsule b y mouth Four times daily as needed for Diarrhea [facility] pantoprazole 40 MG Delayed Release Oral Tablet Pantoprazole Sodium 40 MG Oral Tablet Delayed Release (PROTONIX) Pantoprazole Sodium 40 MG Oral Tablet De layed Release (PROTONIX) 11/02/2019 12:00:00 AM EST 40 mg Oral active Take 1 tablet by mouth Two Times Daily [facility] sodium chloride 0.9 % SOLN 50 mL with ertapenem 1 g SOLR 1,0 00 mg 11/02/2019 12:00:00 AM EST 1000 mg Intravenous aborted Inject 1,000 mg into the vein every 24 (twenty-four) hours [facility] Dicyclomine Hydrochloride 10 MG Oral Cap nuvia Dicyclomine HCl 10 MG Oral Capsule (BENTYL) Dicyclomine HCl 10 MG Oral Capsule (BENTYL) 11/02/2019 12:00 :00 AM EST 10 mg Oral active Take 1 capsule b y mouth Four times daily [facility] alpha-Tocopherol Acetate 1 UNT/ML / Asco rbic Acid 20 MG/ML / Biotin 0.006 MG/ML / Cholecalciferol 20 UNT/ML / dexpanthenol 1.5 MG/ML / Folic Acid 0.06 MG/ML / Niacinamide 4 MG/ML / Pyridoxine Hydrochloride 0.6 MG/ML / retinyl palmitate 330 UNT/ML / Ribofl Infuvite Adult Intravenous Injectable Infuvite Adult Intravenous Injectable 11/02/2019 12:00:00 AM EST 1 mL Intravenou s aborted Inject 1 mL into the vein daily [facility] Ondansetron 2 MG/ML Injectable Solution Ondansetron HCl 40 MG/20ML Injection Solution (ZOFRAN) Ondansetron HCl 40 MG/20ML Injection Solution (ZOFRAN) 11/02/2019 12:00:00 AM EST 4 mg Intravenous active Inject 4 mg into the vein every 8 (eight) hours [facility] pantoprazole 4 MG/ML Injectable Solution Pantoprazole Sodium 40 MG Intravenous Solution Reconstituted (PROTONIX) Pantoprazole Sodium 40 MG Intravenous So lution Reconstituted (PROTONIX) 11/02/2019 12:00:00 AM EST 40 mg Intrave nous active Inject 40 mg into the vein every 12 (twelve) hours [facility] TPN adult 11/01/2019 07:00:00 PM [...] 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
Is patient on propofol (= 1 fat kcal/ml)? No
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
Is patient on propofol (= 1 fat kcal/ml)? No
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 [facility] Medication administered onsite Amylases 25794 UNT / Endopeptidases 1900 0 UNT / Lipase 6000 UNT Delayed Release Oral Capsule pancrelipase (Vpk-Pmjk-Ocgh) (CREON) capsule 12,000 units of lipase pancrelipase (Gun-Tina-Tvfg) (CREON) capsule 12,000 un its of lipase 10/30/2019 05:00:00 PM EST Oral active 12,000 units of lipase, Oral, Three Times Daily-With Meals, First dose on Sat10/30/19 at 1700, For 30 days [facility] Medication administered onsite Calcium Chloride 0.001 MEQ/ML / Glucose 50 MG/ML / Potassium Chloride 0.004 MEQ/ML / Sodium Chloride 0.103 MEQ/ML / Sodium Lactate 0.028 MEQ/ML Injectable Solution dextrose 5 % in lactated ringers infusion dextrose 5 % in lactated ringers infusion 10/30/2019 01:30:00 PM EST Intravenous completed at 100 mL/hr, Intravenous, Continuous, Starting Sat10/30/19 at 1330, For 5 hours [facility] Medication administered onsite Oxycodone Hydrochloride [...] only) require Pain Service consultation and approval.
[facility] Medication administered onsite Dicyclomine Hydrochloride 10 MG Oral Capsule dicyclomi ne (BENTYL) capsule 10 mg dicyclomine (BENTYL) capsule 10 mg 10/30/2019 01:00:00 PM EST 10 mg Oral active 10 mg, Oral, Four T imes Daily Standard, First dose on Sat10/30/19 at 1300, For 30 days [facility] Medication administered onsite ertapenem (INVANZ) 1,000 mg in sodium chloride 0.9 % 50 mL I VPB 10/29/2019 04:00:00 PM EST 1000 mg Intravenous active 1,000 mg, Intravenous, Administer over 30 Minutes, Every 24 hours, First dose on Digna 10/29/19 at 1600, For 10 days [facility] Medication administered onsite Calcium Chloride 0.001 MEQ/ML / Glucose 50 MG/ML / Potassium Chloride 0.004 MEQ/ML / Sodium Chloride 0.103 MEQ/ML / Sodium Lactate 0.028 MEQ/ML Injectable Solution dextrose 5 % in lactated ringers infusion dextrose 5 % in lactated ringers infusion 10/28/2019 11:15:00 PM EST Intravenous aborted at 100 mL/hr, Intravenous, Continuous, Starting Sat10/28/19 at 2315, For 15 days [facility] Medication administered onsite meropenem (MERREM) IVPB 500 mg/50 mL (premix) [id number] 10/28/2019 07:00:00 PM EST 500 mg Intravenous aborted 500 mg, Intravenous, at 100 mL/hr, Every 6 hours, First dose on Sat10/28/19 at 1900, For 7 days
Discouraged Uses: Patients receiving valproic acid derivatives for seizure disorder should not receive meropenem without modification to the antiepileptic regimen
[facility] Medication administered onsite vancomycin (VANCOCIN) 750 mg in D5W 150 mL (premix) 0338-358 0-48 10/28/2019 06:00:00 PM EST 750 mg Intravenous aborted 750 mg, Intravenous, Administer over 60 Minutes, Every 8 hours, First dose on Sat10/28/19 at 1800, For 3 days [facility] Medication administered onsite Calcium Chloride 0.001 MEQ/ML / Glucose 50 MG/ML / Potassium Chloride 0.004 MEQ/ML / Sodium Chloride 0.103 MEQ/ML / Sodium Lactate 0.028 MEQ/ML Injectable Solution dextrose 5 % in lactated ringers infusion dextrose 5 % in lactated ringers infusion 10/28/2019 03:45:00 PM EST Intravenous aborted at 100 mL/hr, Intravenous, Continuous, Starting Sat10/28/19 at 1545, For 15 hours [facility] Medication administered onsite sodium chloride 0.9 % bolus 1,000 mL [id number] 10/28/2019 03:45: 00 PM EST 1000 mL Intravenous active 1,000 mL , Intravenous, Once, Sat10/28/19 at 1545, For 1 dose [facility] Medication administered onsite NaCl infusion 0.9 % 1255-3778-43 10/28/2019 02:00:00 PM EST Intravenous aborted at 100 mL/hr, Intrav enous, Continuous, Starting Sat10/28/19 at 1400, For 30 days [facility] Medication administered onsite potassium chloride 10 mEq in 50 mL IVPB (premix) 5497-4118-4 1 10/28/2019 11:00:00 AM EST 10 meq Intravenous completed 10 mEq, Intravenous, Once, Sat10/28/19 at 1100, For 1 dose [facility] Medication administered onsite diazePAM (VALIUM) injection 5 mg [id number] 10/28/2019 10:45:00 AM EST 5 mg Intravenous completed 5 mg, Intrave nous, Once, Sat10/28/19 at 1045, For 1 dose [facility] Medication administered onsite Fluoxetine 20 MG Oral Capsule fluoxetine (PROZAC) caps ule 20 mg fluoxetine (PROZAC) capsule 20 mg 10/28/2019 09:00:00 AM EST 20 mg Oral active 20 mg, Oral, Daily Standard, First dose on Sat10/28/19 at 0900, For 30 days [facility] Medication administered onsite multivitamin with minerals (BARIATRIC FUSION) chewable tablet 2 tablet [id number] 10/28/2019 09:00:00 AM EST 2 {tbl} Oral abort ed 2 tablet, Oral, 2 Times Daily With Meals, First dose on Sat10/28/19 at 0900, For 30 days [facility] Medication administered onsite vancomycin (VANCOCIN) in D5W infusion 1,000 mg/200 mL (premi x) [id number] 10/28/2019 09:00:00 AM EST 1000 mg Intravenous completed 1,000 mg, Intravenous, Administer over 60 Minutes, Once, Sat10/28/19 at 0900, For 1 dose [facility] Medication administered onsite sodium chloride 0.9 % bolus 1,000 mL [id number] 10/28/2019 08:15: 00 AM EST 1000 mL Intravenous completed 1,000 mL , Intravenous, Once, Sat10/28/19 at 0815, For 1 dose [facility] Medication administered onsite Amylases 78485 UNT / Endopeptidases 9500 UNT / Lipase 3000 UNT Delayed Release Oral Capsule pancrelipase (Mxe-Tolr-Wwrg) (CREON) 0856-3773 units capsule 3,000 units of lipase pancrelipase (Mcy-Lust-Viig) (CREON) 300 0-9500 units capsule 3,000 units of lipase 10/28/2019 07:30:00 AM EST 1 {capsule} Oral aborted 3,000 units of lipase (1 cap nuvia), Oral, Before Meals - Three Times Daily, First dose on Sat10/28/19 at 0730, For 30 days
Patient's own medication being used for this order
[facility] Medication administered onsite iohexol (OMNIPAQUE) 300 MG/ML contrast injection 100 mL 1776 02 10/28/2019 04:00:00 AM EST 100 mL Given by IV completed 100 mL, Given by IV, 1 TIME IMAGING, Sat10/28/19 at 0400, For 1 dose [facility] Medication administered onsite morphine sulfate (PF) injection 2 mg 10/28/2019 12:00: 00 AM EST 2 mg Intravenous completed 2 mg, In travenous, Once, Sat10/28/19 at 0000, For 1 dose [facility] Medication administered onsite iohexol (OMNIPAQUE) 240 MG/ML contrast 20 mL [id number] 04/2020 11:50:48 PM EST 20 mL Oral completed 20 mL, Oral, O nce PRN, Contrast, Per Protocol, Starting Sat10/27/19 at 2350, For [address] to tell RN administration time of first dose.For oral use Dilute in 500 mL liquid x1 Now per protocol. Use "Contrast dose chart" link for dosing guidelines.
[facility] Medication administered onsite iohexol (OMNIPAQUE) 240 MG/ML contrast 20 mL [id number] 04/2020 11:50:48 PM EST 20 mL Oral completed 20 mL, Oral, P RN, Contrast, Per Protocol, Starting Sat10/27/19 at 2350, For [address] Scanner prior. on call pharmacy technician to CT.For oral use Dilute in 500 mL liquid x1 acquisitions editor to CT scan - per protocol. Use "Contrast dose chart" link for dosing guidelines.
[facility] Medication administered onsite Piperacillin 3000 MG / tazobactam 375 MG Injection piperacillin-tazobactam (ZOSYN) IVPB 3.375 g (premix) piperacillin-tazobactam (ZOSYN) IVPB 3.3 75 g (premix) 10/27/2019 11:30:00 PM EST 3.375 g Intravenous abo rted 3.375 g, Intravenous, Administer over 4 Hours, Every 8 hours, First dose on Sat10/27/19 at 2330, For 3 days [facility] Medication administered onsite Misoprostol 0.2 MG Oral Tablet misoprostol (CYTOTEC) t ablet 200 mcg misoprostol (CYTOTEC) tablet 200 mcg 10/27/2019 10:00:00 PM EST 200 ug Oral active 200 mcg, Oral, Every 6 hours, First dose on Sat at 2200, For 30 days [facility] Medication administered onsite morphine sulfate (PF) injection 2 mg [id number] 10/27/2019 09:47: 21 PM EST 2 mg Intravenous aborted 2 mg, In travenous, Every 4 hours PRN, Severe Pain (Pain Scale Score 7-10), Starting Sat10/27/19 at 7, For 3 days [facility] Medication administered onsite gabapentin 100 MG Oral Capsule gabapentin (NEURONTIN) capsule 100 mg gabapentin (NEURONTIN) capsule 100 mg 10/27/2019 09:00:00 PM EST 100 mg Oral active 100 mg, Oral, Three Times D aily Standard, First dose on Sat10/27/19 at 2100, For 30 days [facility] Medication administered onsite pantoprazole 4 MG/ML Injectable Solution pantoprazole (PROTONIX) injection 40 mg pantoprazole (PROTONIX) injection 40 mg 10/27/2019 09:00:00 PM EST 40 mg Intravenous active 40 mg, Intrav enous, 2 Times Daily, First dose on Sat10/27/19 at 2100, For 30 days
Dilute with 10 mL of 0.9% NaCl.Give IVP over 2 minutes. Flush before and after.
[facility] Medication administered onsite Sucralfate 100 MG/ML Oral Suspension suc ralfate (CARAFATE) 1 GM/10ML suspension 1 g sucralfate (CARAFATE) 1 GM/10ML suspension 1 g 10/27/2019 09:00: 00 PM EST 1 g Oral active 1 g, Oral, Before Meals & Nightly - Four Times Daily, First dose on Sat10/27/19 at 2100, For 30 days [facility] Medication administered onsite Acetaminophen 325 [...] mg from all sources in 24 hours.
[facility] Medication administered onsite Calcium Chloride 0.001 MEQ/ML / Glucose 50 MG/ML / Potassium Chloride 0.004 MEQ/ML / Sodium Chloride 0.103 MEQ/ML / Sodium Lactate 0.028 MEQ/ML Injectable Solution dextrose 5 % in lactated ringers infusion dextrose 5 % in lactated ringers infusion 10/27/2019 08:45:00 PM EST Intravenous completed at 100 mL/hr, Intravenous, Continuous, Starting Sat10/27/19 at 2044, For 15 hours [facility] Medication administered onsite Zolpidem tartrate 5 MG Oral Tablet zolpidem (AMBIEN) t ablet 5 mg zolpidem (AMBIEN) tablet 5 mg 10/27/2019 08:43:33 PM EST 5 mg Oral active 5 mg, Oral, Nightly PRN, Sleep, Starting Sat10/27/19 at 2042, For 7 days [facility] Medication administered onsite Loperamide Hydrochloride 2 MG Oral Capsule loperamide (IMODIUM) capsule 2 mg loperamide (IMODIUM) capsule 2 mg 10/27/2019 08:41:30 PM EST 2 mg Oral active 2 mg, Oral, Four Ti mes Daily-PRN, Diarrhea, Starting Sat10/27/19 at 2040, For 14 days [facility] Medication administered onsite Hydroxyzine Hydrochloride 50 MG Oral Tablet hydrOXYzin e (ATARAX) tablet 25 mg hydrOXYzine (ATARAX) tablet 25 mg 10/27/2019 08:41:24 PM EST 25 mg Oral active 25 mg, Oral, Every 6 hours PRN, Itching, Anxiety, Starting Sat10/27/19 at 2040, For 30 days [facility] Medication administered onsite albuterol (PROVENTIL HFA;VENTOLIN HFA) inhaler 2 puff [id number] 10/27/2019 08:40:44 PM EST 2 {puff} Inhalation active 2 pu ff, Inhalation, Every 6 hours PRN, Wheezing, Shortness of Breath, Starting Sat10/27/19 at 2039, For 7 days 13 hours
Shake the inhaler well before each spray.
[facility] Medication administered onsite diphenhydrAMINE (BENADRYL) injection 50 mg [id number] 10/27/2019 08:35:37 PM EST 50 mg Intravenous active 50 m g, Intravenous, Every 6 hours PRN, Itching, Nausea, Starting Sat10/27/19 at 2034, For 30 days [facility] Medication administered onsite ondansetron (ZOFRAN) injection 4 mg [id number] 10/27/2019 08:35:2 9 PM EST 4 mg Intravenous active 4 mg, In travenous, Every 8 hours PRN, Nausea, Vomiting, Starting Sat10/27/19 at 2035, For 30 days [facility] Medication administered onsite sodium chloride 0.9 % bolus 1,000 mL [id number] 10/27/2019 08:00: 00 PM EST 1000 mL Intravenous completed 1,000 mL , Intravenous, Once, Sat10/27/19 at 2000, For 1 dose [facility] Medication administered onsite Doxycycline Monohydrate 5 MG/ML Oral Rani pension Doxycycline Monohydrate 25 MG/5ML Doxycycline Monohydrate 25 MG/5ML 10/16/2019 12:00:00 AM EST active 20 ml eCW1 ([facility]) Amylases 48414 UNT / Endopeptidases 9500 UNT / Lipase 3000 UNT Delayed Release Oral Capsule Pancrelipase (Xez-Ssbc-Txny) 2312-3890 UNIT Oral Capsule Delayed Release Particles (CREON) Pancrelipase (Lvl-Unjk-Pbyf) 3454-0450 U NIT Oral Capsule Delayed Release Particles (CREON) 10/05/2019 12:00:00 AM EST Oral aborted Take 1 capsule by mouth Thre e times daily before meals [facility] Ondansetron 4 MG Disintegrating Oral Tab let Ondansetron 4 MG Oral Tablet Disintegrating (ZOFRAN-ODT) Ondansetron 4 MG Oral Tablet Disintegrat ing (ZOFRAN-ODT) 10/02/2019 12:00:00 AM EST 4 mg Oral abort ed Nausea Take 1 tablet by mouth every 8 (eight) hours as needed for Nausea [facility] Nausea Loperamide Hydrochloride 2 MG Oral Capsu le Loperamide HCl 2 MG Oral Capsule (IMODIUM) Loperamide HCl 2 MG Oral Capsule (IMODIUM) 10/01/2019 12:00: 00 AM EST 2 mg Oral aborted Take 1 capsule b y mouth Four times daily as needed for Diarrhea [facility] pantoprazole 40 MG Delayed Release Oral Tablet Pantoprazole Sodium 40 MG Oral Tablet Delayed Release (PROTONIX) Pantoprazole Sodium 40 MG Oral Tablet De layed Release (PROTONIX) 10/01/2019 12:00:00 AM EST 40 mg Oral aborted Take 1 tablet by mouth Two Times Daily [facility] Misoprostol 0.2 MG Oral Tablet miSOPROStol 200 MCG Ora l Tablet (CYTOTEC) miSOPROStol 200 MCG Oral Tablet (CYTOTEC) 10/01/2019 12:00:00 AM EST 200 ug Oral active Take 1 tablet by mackenzie th every 6 (six) hours [facility] Loperamide Hydrochloride 2 MG Oral Capsule loperamide (IMODIUM) capsule 2 mg loperamide (IMODIUM) capsule 2 mg 09/30/2019 01:47:41 PM EST 2 mg Oral active 2 mg, Oral, Three T imes Daily-PRN, Diarrhea, Starting Sat09/30/19 at 1347, For 14 days [facility] Medication administered onsite pantoprazole 40 MG Delayed Release Oral Tablet pantoprazole (PROTONIX) EC tablet 40 mg pantoprazole (PROTONIX) EC tablet 40 mg 09/29/2019 09:00:[address] 40 mg Oral active 40 mg, Ora l, 2 Times Daily, First dose on Sat09/29/19 at 2100, For 30 days
Do not crush or chew
[facility] Medication administered onsite Misoprostol 0.2 MG Oral Tablet misoprostol (CYTOTEC) t ablet 200 mcg misoprostol (CYTOTEC) tablet 200 mcg 09/29/2019 12:00:00 PM EST 200 ug Oral active 200 mcg, Oral, Every 6 hours Standard (4 times per day), First dose on Sat09/29/19 at 1200, For 30 days [facility] Medication administered onsite Sucralfate 100 MG/ML Oral Suspension suc ralfate (CARAFATE) 1 GM/10ML suspension 1 g sucralfate (CARAFATE) 1 GM/10ML suspension 1 g 09/29/2019 12:00: 00 PM EST 1 g Oral active 1 g, Oral, Every 6 hours Standard (4 times per day), First dose on Sat09/29/19 at 1200, For 30 days [facility] Medication administered onsite trimethobenzamide (TIGAN) injection 200 mg [id number] 09/28/2019 09:54:05 AM EST 200 mg Intramuscular active 200 mg , Intramuscular, Every 6 hours PRN, Nausea, Vomiting, Starting Sat09/28/19 at 0954, For 30 days [facility] Medication administered onsite Promethazine Hydrochloride 25 MG/ML Inje ctable Solution promethazine (PHENERGAN) injection 12.5 mg promethazine (PHENERGAN) injection 12.5 mg 09/28/2019 09:53:48 AM EST 12.5 mg Intravenous active 12.5 mg, Intravenous, Every 6 hours PRN, Nausea, Vomiting, Starting 09/28/19 at 0953, For 30 days
If ordered intravenous then must be diluted in 50 mL of sodium chloride 0.9 % and administered over 15 minutes. Do NOT give IV push.
[facility] Medication administered onsite Fluoxetine 20 MG Oral Capsule fluoxetine (PROZAC) caps ule 20 mg fluoxetine (PROZAC) capsule 20 mg 09/28/2019 09:00:00 AM EST 20 mg Oral active 20 mg, Oral, Daily Standard, First dose on 09/28/19 at 0900, For 30 days [facility] Medication administered onsite 2 ML Metoclopramide 5 MG/ML Prefilled Sy ringe metoclopramide (REGLAN) injection 10 mg metoclopramide (REGLAN) injection 10 mg 09/27/2019 10:30:[address] 10 mg Intravenous active 10 mg, I ntravenous, Every 6 hours, First dose on 09/27/19 at 2230, For 30 days [facility] Medication administered onsite gabapentin 100 MG Oral Capsule gabapentin (NEURONTIN) capsule 100 mg gabapentin (NEURONTIN) capsule 100 mg 09/27/2019 09:00:00 PM EST 100 mg Oral active 100 mg, Oral, Three Times D aily Standard, First dose on 09/27/19 at 2100, For 30 days [facility] Medication administered onsite diphenhydrAMINE (BENADRYL) injection 25 mg [id number] 09/27/2019 06:51:14 PM EST 25 mg Intravenous active 25 m g, Intravenous, Every 6 hours PRN, Itching, Starting 09/27/19 at 1851, For 30 days
Run slow in a bag
[facility] Medication administered onsite Hydroxyzine Hydrochloride 50 MG Oral Tablet hydrOXYzin e (ATARAX) tablet 25 mg hydrOXYzine (ATARAX) tablet 25 mg 09/27/2019 06:30:15 PM EST 25 mg Oral active 25 mg, Oral, Every 6 hours PRN, Itching, Anxiety, Starting 12/8/19 at 1830, For 30 days [facility] Medication administered [place] [facility] [place]DURABLE MEDICAL EQUIPMENT SEE SIG) [place] [facility] [place] [phone] 09/21/2019 12:00:00 AM EST abo rted Jejunostomy tube presentChronic narcotic useFailure to thrive in adultHistory of Nadege-en-Y gastric bypassAnticoagulated Use as directed. Start Pepta men 1.5 via J-Tube. Advance 10 ml/hr q 8 hrs to goal rate of 55 ml/hr x 24 hr. To provide 1,980 kcals and 90 grams protein. 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 Anticoagulated Bariatric Fusion Oral Tablet Chewable [id number] 09/11/2019 12:00 :00 AM EST 2 {tbl} Oral aborted Chew 2 tab lets by Mouth Two times daily with meals Can get this online [facility] gabapentin 100 MG Oral Capsule Gabapentin 100 MG Oral Capsule (NEURONTIN) Gabapentin 100 MG Oral Capsule (NEURONTIN) 09/11/2019 12:00:00 AM EST 100 mg Oral aborted Take 1 capsule by mo ut Three times daily [facility] Ondansetron 8 MG Disintegrating Oral Tab let ondansetron (ZOFRAN-ODT) 8 MG disintegrating tablet ondansetron (ZOFRAN-ODT) 8 MG disintegrating tablet 07/03/2019 12:00:00 AM EDT 8 mg Oral aborted Take 8 mg by mouth as needed [facility] Zolpidem tartrate 6.25 MG Extended Relea se Oral Tablet zolpidem (AMBIEN CR) 6.25 MG CR tablet zolpidem (AMBIEN CR) 6.25 MG CR tablet 07/02/2019 12:00:00 A M EDT aborted TAKE 1 TABLET BY MOUTH ONCE DAILY AT BEDTIME NEEDED (MAX DAILY DOSE OF 1 TABLET). [facility] Promethazine Hydrochloride 25 MG Rectal Suppository [Phenadoz] PHENADOZ 25 MG suppository PHENADOZ 25 MG suppository 07/02/2019 12:00:00 AM EDT 25 mg aborted 25 mg every 8 (eight) hours as n eeded [facility] Oxycodone Hydrochloride 10 MG Oral Tablet Oxycodone HC l 10 MG TABS Oxycodone HCl 10 MG TABS 06/18/2019 12:00:00 AM EDT 40 mg Oral aborte d Take 40 mg by mouth every 4 (four) hours as needed [facility] sodium chloride, preservative free, 0.9 % injection [id number] 05/15/2019 12:00:00 AM EDT aborted 1-2 liters IV da kristina as needed. [facility] Sodium Chloride Flush (NORMAL SALINE FLUSH) 0.9 % SOLN [id number] 05/15/2019 12:00:00 AM EDT aborted 10 mls IV before and after dose and prn [facility] sodium chloride 0.9 % solution [id number] 04/30/2019 12:00:00 AM ED T 10 mL aborted 10 mLs as needed [facility] Glucagon 1 MG Injection glucagon (GLUCAGON EMERGENCY) 1 MG injection glucagon (GLUCAGON EMERGENCY) 1 MG injection 11/14/2018 12:00:00 AM EST 1 mg Subcutaneous aborted Gastroparesis Inject 1 mg into the skin as needed For low blood glucose with symptoms [facility] Gastroparesis Ondansetron 2 MG/ML Injectable Solution Ondansetron HCl (ZOFRAN) 40 MG/20ML SOLN Ondansetron HCl (ZOFRAN) 40 MG/20ML SOLN 04/16/2018 12:00:00 AM EDT 4 mg Intravenous aborted Inject 4 mg into t he vein [facility] Zolpidem tartrate 12.5 MG Extended Relea se Oral Tablet zolpidem ER 12.5 mg tablet,extended release,multiphase zolpidem ER 12.5 mg tablet,extended release,multiphase completed zolpidem tartrate 12.5 MG Extended Release Oral Tablet ROBERTO ([facility]) Morphine Sulfate 15 MG Oral Tablet morphine 15 mg imme diate release tablet morphine 15 mg immediate release tablet completed morphine sulfate 15 MG Oral Tablet ROBERTO ([facility]) 0.6 ML Enoxaparin sodium 100 MG/ML Prefi lled Syringe enoxaparin 60 mg/0.6 mL subcutaneous syringe enoxaparin 60 mg/0.6 mL subcutaneous syringe completed 0.6 ML enoxaparin sodium 100 MG/ ML Prefilled Syringe ROBERTO ([facility]) Oxycodone Hydrochloride 20 MG/ML Oral So lution oxycodone 20 mg/mL oral concentrate oxycodone 20 mg/mL oral concentrate completed oxycodone hydrochloride 20 MG/ML Oral Solution ROBERTO ([facility]) 3 ML heparin sodium, porcine 100 UNT/ML Prefilled Syringe Heparin Lock Flush (Porcine) (PF) 100 unit/mL intravenous syringe Heparin Lock Flush (Porcine) (PF) 100 unit/mL intravenous syringe compl eted 3 ML heparin sodium, porcine 100 UNT/ML Prefilled Syringe ROBERTO ([facility]) Oxycodone Hydrochloride 1 MG/ML Oral Solution oxycodon e 5 mg/5 mL oral solution oxycodone 5 mg/5 mL oral solution comp leted oxycodone hydrochloride 1 MG/ML Oral Solution ROBERTO ([facility]) Ondansetron 8 MG Disintegrating Oral Tab let ondansetron 8 mg disintegrating tablet ondansetron 8 mg disintegrating tablet completed ondansetron 8 MG Disintegrating Oral Tablet ROBERTO ([facility]) Zolpidem tartrate 5 MG Oral Tablet Zolpidem Tartrate 5 MG Oral Tablet (AMBIEN) Zolpidem Tartrate 5 MG Oral Tablet (AMBIEN) 12.5 mg Oral aborted Take 12.5 mg by mouth nightly as needed for Sleep [facility] benzonatate 100 MG Oral Capsule benzonatate 100 mg cap nuvia benzonatate 100 mg capsule completed benzonatate 10 0 MG Oral Capsule ROBERTO ([facility]) Fluoxetine 4 MG/ML Oral Solution fluoxetine 20 mg/5 mL (4 mg/mL) oral solution fluoxetine 20 mg/5 mL (4 mg/mL) oral solution completed fluoxetine 4 MG/ML Oral Solution ROBERTO ([facility]) Ceftriaxone 100 MG/ML Injectable Solutio n ceftriaxone 10 gram solution for injection ceftriaxone 10 gram solution for injection completed ceftriaxone 100 MG/ML Injectable Solution ROBERTO ([facility]) Prednisone 20 MG Oral Tablet prednisone 20 mg tablet prednisone 20 mg tablet completed prednisone 20 MG Oral Tablet ROBERTO ([facility]) Ceftriaxone 2000 MG Injection ceftriaxone 2 gram solut ion for injection ceftriaxone 2 gram solution for injection completed ceftriaxone 2000 MG Injection ROBERTO ([facility]) Metoclopramide 10 MG Oral Tablet metoclopramide 10 mg tablet metoclopramide 10 mg tablet completed metocloprami de 10 MG Oral Tablet ROBERTO ([facility]) pantoprazole 40 MG Delayed Release Oral Tablet pantoprazole 40 mg tablet,delayed release pantoprazole 40 mg tablet,delayed release completed pantoprazole 40 MG Delayed Release Oral Tablet ROBERTO ([facility]) gabapentin 100 MG Oral Capsule gabapentin 100 mg capsu le gabapentin 100 mg capsule completed gabapentin 100 MG Oral Capsule ROBERTO ([facility] ) Doxycycline Monohydrate 5 MG/ML Oral Rani pension doxycycline monohydrate 25 mg/5 mL oral suspension doxycycline monohydrate 25 mg/5 mL oral suspension completed doxycycline monohydrate 5 MG /ML Oral Suspension [facility]ERT[facility] ([facility] ) Amoxicillin 500 MG Oral Capsule amoxicillin 500 mg cap nuvia amoxicillin 500 mg capsule completed amoxicillin 50 0 MG Oral Capsule ROBERTO ([facility]) Zolpidem tartrate 5 MG Oral Tablet zolpidem 5 mg tablet zolpidem 5 mg tablet completed zolpidem tartr ate 5 MG Oral Tablet [facility]ERT[facility] ([facility] ) Misoprostol 0.2 MG Oral Tablet misoprostol 200 mcg tab let misoprostol 200 mcg tablet completed misoprostol 0.2 MG Oral Tablet ROBERTO ([facility]) Nystatin 507228 UNT/ML Topical Cream nystatin 100,000 unit/gram topical cream nystatin 100,000 unit/gram topical cream completed nystatin 546102 UNT/ML Topical Cream [facility]ERT[facility] ([facility]) ertapenem 1 gram solution for injection 436161 completed ertapenem 1000 MG Injection [facility]ERTO ([facility]) Zolpidem tartrate 6.25 MG Extended Relea se Oral Tablet zolpidem ER 6.25 mg tablet,extended release,multiphase zolpidem ER 6.25 mg tablet,extended release,multiphase completed zolpidem tartrate 6.25 MG Extended Release Oral Tablet [facility]ERT[facility] ([facility]) sodium chloride 0.9 % intravenous piggyback 344130 completed sodium chloride 9 MG/ML Injection ROBERTO ([facility]) Oxycodone Hydrochloride 5 MG Oral Tablet oxycodone 5 m g tablet oxycodone 5 mg tablet completed oxycodone hydro chloride 5 MG Oral Tablet [facility]ERT[facility] ([facility] Metronidazole 5 MG/ML Injectable Solutio n metronidazole 500 mg/100 mL-sodium chloride(iso) intravenous piggyback metronidazole 500 mg/100 mL-sodium chloride(iso) intravenous piggyback co mpleted 100 ML metronidazole 5 MG/ML Injection [facility] ([facility] HEPARIN LOCK FLUSH IV Intravenous aborted Inject into the vein [facility] 1 ML heparin sodium, porcine 10 UNT/ML I njection Heparin Lock Flush 10 UNIT/ML Intravenous Solution Heparin Lock Flush 10 UNIT/ML Intravenous Solution 10 U Intracatheter aborted Patency Maintenance of Ind welling Catheter 10 Units by Intracatheter route as needed (3 ml)Current Heparin flush patient uses at home for [place] catheter Indications: Prevention of Closure of Indwelling Catheter [facility] Patency Maintenance of Indwelling Cathet er linezolid 600 MG Oral Tablet linezolid 600 mg tablet linezolid 6 00 mg tablet completed linezolid 600 MG Oral Tablet [facility] ([facility] sodium chloride 0.9 % intravenous solution [id number] completed sodium chloride 9 MG/ML Injection [facility]ERT[facility] ([facility] Promethazine Hydrochloride 25 MG Rectal Suppository [Promethegan] Promethegan 25 mg rectal suppository Promethegan 25 mg rectal suppository completed promethazine hydrochloride 25 MG Rectal Suppository [Promethegan] [facility] ([facility] Insurance Providers Payer name Policy type / Coverage type Policy ID Covered green party ID Covered green party's relationship to fuller Policy Fuller Plan Information [facility] [id number] BCBS EMPIRE [place]ERT DIV [id number] HU2 [id number] EMPIRE PLAN [facility] U [id number] Spouse [id number] [place] Plan Primary [id number] [facility] O [id number] EMPIRE BLUE CROSS BLUE SHIELD -O/P [id number] BCBS EMPIRE ROBERT DIV [id number] HU2 [id number] [facility] [id number] UNHC EMPIRE -PHYSICIAN [id number] UNHC EMPIRE -PHYSICIAN [id number] 01 [id number] EXCELLUS BLUE CROSS BLUE SHIELD HEA [id number] SP [id number] [place] [id number] Spouse [id number] [place] [id number] [facility] [id number] [id number] BCBS EMPIRE ROBERT DIV [id number] [facility] [id number] BCBS EMPIRE ROBERT DIV [id number] HU2 [id number] BCBS EMPIRE ROBERT DIV [id number] HU2 [id number] BCBS EMPIRE ROBERT DIV [id number] HU2 [id number] EMPIRE PLAN [facility] [id number] [facility] [id number] [employer] [id number] [facility] [id number] [id number] [employer] [id number] [employer] [id number] [employer] [id number] [employer] [id number] [employer] [id number] ANSI-Commercial [id number] ANSI-Commercial [id number] ANSI-Commercial [id number] ANSI-Commercial [id number] ANSI-Commercial [id number] ANSI-Commercial [id number] ANSI-Commercial [id number] ANSI-Commercial [id number] [facility] [id number] [facility] [id number] ANSI-Commercial [id number] ANSI-Commercial [id number] [facility] [place] [id number] Family Dependent [id number] ANSI-Commercial [id number] ANSI-Commercial [id number] ANSI-Commercial [id number] ANSI-Commercial [id number] ANSI-Commercial [id number] ANSI-Commercial [id number] ANSI-Commercial [id number] ANSI-Commercial [id number] ANSI-Commercial [id number] ANSI-Commercial [id number] ANSI-Commercial [id number] ANSI-Commercial [id number] ANSI-Commercial [id number] ANSI-Commercial [id number] ANSI-Commercial [id number] ANSI-Commercial [id number] ANSI-Commercial [id number] ANSI-Commercial [id number] ANSI-Commercial [id number] ANSI-Commercial [id number] ANSI-Commercial [id number] ANSI-Commercial [id number] ANSI-Commercial [id number] ANSI-Commercial [id number] ANSI-Commercial [id number] ANSI-Commercial [id number] 74652j3m-4m75-6200-j528-b87s7s57rvx8 ANSI-Commercial [id number]-39vy-9a42-379566gt1379 1h326214-1h4x-76mg-4p96-695978za3426 [facility] [id number] HU2 89 [id number] [employer] DIV [id number] HU2 [id number] ANSI-Commercial [id number]-69t9-0a89-7ke3-3j9n6wry99e2 [id number]9v8 [facility] Commercial [id number] Family Depende nt [id number] [facility] Commercial [id number] Family Depende nt [id number] ANSI-Commercial w7he4705-a8j5-2w4f-6yuq-741e8w7uvjlf r3qt3055-e4x1-1m6y-2iec-086y6t9iljrk ANSI-Commercial 9e20ogh2-a1j4-0mro-l349-2v125113fw4d 7x27zlt0-j4g7-7jkb-j128-7t283781cy6s ANSI-Commercial 2b1mg409-2341-98zj-y948-564l309998mr 6k2aj564-6722-78kd-g055-837v850325cq ANSI-Commercial cfry4933-akgx-694l-cn6b-5f69696cb9q2 tweo8576-rzer-522x-wo7v-1w67637iz2b6 ANSI-Commercial 1s595734-6s40-7z64-06u8-2978412s1t1j 9n969492-5f81-4g18-57i6-3571780i5m1t ANSI-Commercial 5z87e7cj-3635-302b-y046-825n8n9zs8s5 4s35z6hc-3238-641q-v842-095o2b0vm3h8 ANSI-Commercial d03ld39c-3k0v-00j4-7u60-774j93539tb1 u78ks12x-5d9u-94n8-9n62-023q00210oy1 ANSI-Commercial c9303se2-31lu-1159-75r0-125c8d2w707p f6069bg5-22xz-4214-41v1-682w0s5t234t ANSI-Commercial o7951042-04c0-8523-u5vc-3y63c1g46549 f8047861-73s7-0602-h9jh-7l77x1i25819 ANSI-Commercial 6i1xf27r-9826-12p1-p924-dp7h5347t37b 7q6wv81x-7532-61j4-l223-tx7y5561h11u ANSI-Commercial 6npsx7d7-v1b8-9d11-uze5-0ig7j683s499 0yjns1l9-z7j8-1a61-iwh1-5nh2y670d812 ANSI-Commercial r8z4r9ga-2893-9y27-948u-my541s5rn003 g5n5g2un-5186-5p22-362n-ur618q7dv956 ANSI-Commercial 10881gx5-o12l-9n35-67t6-r24e6rf07151 56607oj3-j92j-5t19-05f1-e94x1no86876 ANSI-Commercial cbn007br-sn36-4607-va11-9uf72m1q753y xuc607mu-bw22-5997-kp17-9xg17x3x710q ANSI-Commercial 552kv00r-5992-2jk3-y91a-8zlr255ygf20 714ed86x-0592-9pn2-l81e-7dls797ukw18 ANSI-Commercial z1f7300l-1p03-3a3h-f0w5-89m70c62an0j h5x5501y-4o88-3r1g-c3c5-03g87q24jq1p ANSI-Commercial 9g0z506a-0201-831r-k8j1-uf3uofb35019 9j2f605k-2515-408q-a6k3-iy1fgxl58054 ANSI-Commercial 92y2q40h-23eu-0539-35gg-08v110160o34 46f0b56y-40al-6681-69zc-16v437286z83 ANSI-Commercial 30027u43-7y5q-1vu8-d21n-p696294vr290 71155f16-4h8m-3nk1-m90g-t881032mh804 ANSI-Commercial x03b81sj-y33s-7258-9b07-euy5776z7sl8 y87m74we-k86d-3660-4l42-ghm6876q2vv7 ANSI-Commercial 0aed20i7-3027-33t5-863d-14707zs0u2n6 4cyi42v1-6465-84n6-578k-08651ep7w7n9 ANSI-Commercial 451k0q6e-c7ec-7e29-7ady-58254y9l492b 403o9u8x-d0ps-6e12-5zih-69898q0x583m ANSI-Commercial 0a9rm608-4793-1190-o414-h422t2voo2f2 6x1iq436-8223-6093-e657-t045w2ivo6y2 ANSI-Commercial 1w7l9pro-3b5i-131w-42m3-504u9u6561r0 3h2g2clo-4w9a-847i-50j6-114y6q7246z2 ANSI-Commercial 2w51z52m-s69e-4ys6-cz9d-63p3z20b0a24 9x81i97i-r73l-2wv6-gj4n-97c9t80v3c28 ANSI-Commercial 83u22e6e-5yr6-2fgp-6v53-0t6nn04qt925 97h35i0m-1ed3-2lwe-5m91-9y8py31de968 ANSI-Commercial 4c51y56p-4174-9774-7uvj-86r569094d27 2p69v97h-1157-2118-3ldf-95h774961u20 ANSI-Commercial 856dg171-g913-8928-p3v5-x0jy07098u96 636la562-x623-4855-m9b7-j0tt70625x16 ANSI-Commercial 18b9y790-1831-5j16-41u7-bc08adb1s46r 39q9e863-7059-0u70-98b3-rk58eqw4s59q ANSI-Commercial 0t1z52qw-kbui-8xy6-yr8m-r2h7egw9x930 7t8i37sj-mnpn-8ju8-re7k-w4n7kmw6g047 ANSI-Commercial 1gn9574n-3176-72z6-e506-7291l4279738 7ym8119p-2840-25o3-j604-0965k4082543 ANSI-Commercial 8hsk80k8-50hy-16h0-8398-0s09p4wk2037 5nvi51a2-17qb-39v4-9803-1a03f8cg3514 ANSI-Commercial h36y40d5-n0dn-8135-o315-92g0n66047d3 n08u73d0-c6xq-5200-b851-03q7h07231o4 [facility] BLUE CROSS BLUE SHIELD HEA [id number] SP [id number] ANSI-Commercial 80t0wt9j-8282-1c03-yabs-o795e9w52v9t 57q9qa3k-1838-0m34-fnml-k762l4g14l7c ANSI-Commercial 119e1468-62ba-39k1-9e2v-izqwh85p6731 594n4909-77mm-88w2-3b4i-aclqb45m5577 [employer]BS [employer] ROBERT [facility] [id number] [facility] [id number] ANSI-Commercial 9gw73478-0an3-26xt-5a41-n862qy93ekc4 1ho29715-8et8-91ml-2v72-t154oz71iwm4 ANSI-Commercial 8py9xn28-x9z0-566k-k707-229ja8b1x4l5 4ep8cg31-e5i6-757t-d796-077jn9q5y6b6 ANSI-Commercial j7rf17x6-u458-24oq-4yw1-33l00h75h33v l0xv63h8-b524-17sm-7iz0-61x52z65j26p ANSI-Commercial wi26uapk-8473-5576-q1ey-08762fiq36a8 uj08zwxp-9003-2831-q8rn-24845oko67t6 ANSI-Commercial u3s4s435-458d-627i-vz73-9gf12nx1098u d3q9b571-427r-405k-tw09-4yj28th2465v ANSI-Commercial s5491660-e93q-6w1u-v7v3-vc7706ytg719 k4288573-c52c-8t2c-f3g3-wi1318qvt310 ANSI-Commercial 94919m93-19ht-0012-c1f7-z32xo142k5x2 23851z92-81iq-2381-l4l1-v65iq980j9a8 ANSI-Commercial 72899vc3-e0e9-428f-o9rc-b251ni075s57 39052oe8-r8s2-178v-f1of-k899lk158e09 ANSI-Commercial 4123yx93-0363-5mo7-xq3s-68697j125p54 6527kx70-1840-8om6-yo8v-53342q090o56 ANSI-Commercial 4hqqem97-4906-1m89-7exn-1009kjgz0z2p 2qwpgt28-6159-5m53-8hqd-5575pavz4p0n ANSI-Commercial 3e6ia02z-bgfu-1686-x25b-562943o9504a 3c1qf71f-tafy-9048-e18o-504916l8908e ANSI-Commercial n5bg38k6-t4b4-0f4z-oyf5-4lv1606c41g2 n9zz13k2-u0y3-5r0d-qsi4-7tb5324f06r7 ANSI-Commercial q1010e88-0875-197w-uu60-346p02g4301v s5422l03-3206-411n-bl53-008p29e1376z ANSI-Commercial 097s36t1-681h-818x-596z-mt12f125jn7o 372q86j5-683d-612o-160p-qa16y941rl0z [place] Commercial [id number] Family Dependent [id number] [facility] [id number] SP [id number] [place] Commercial [id number] Family Dependent [id number] [place] Commercial [id number] Family Dependent [id number] [facility] [id number] [id number] [place] Commercial [id number] Family Dependent [id number] [employer] DIV [id number] HU2 [id number] [facility] Health Maintenance Organization (HMO) [id number] Family Dependent [id number] [facility] [place] Health Maintenance Organization (HMO) [id number] Family Dependent [id number] [facility] [place] Health Maintenance Organization (HMO) [id number] Family Dependent [id number] [facility] Health Maintenance Organization (HMO) [id number] Family Dependent [id number] [facility] Commercial [id number] Family Depende nt [id number] [facility] -PHYSICIAN [id number] [facility] Commercial Family Depende nt [place] Plan F [id number] SPOUSE [id number] [facility] [id number] 01 [id number] EMPIRE ([facility]) O [id number] P [id number] [employer]BS [id number] Spo YLS [id number] VALUE [employer] OUTPATIENT CLAIM [id number] HU2 [id number] [place] Plan F [id number] SPOUSE [id number] [employer]BS [id number] Spo YLS [id number] [place] Health Insurance [id number] 1 [id number] BC BLUE CARD 1 [id number] SELF PAY 2 UNAVAILABLE 1 UNAVAILA BLE [id number] Problems, Conditions, and Diagnoses Code Display Name Description Problem Type Effective Dates Data Source(s) G89.29 [id number] Other chronic pain Problem 11/14/2020 12:00: 00 AM EST eCW1 ([facility]) E46 [id number] Caloric malnutrition Problem 11/09/2020 12:0 0:00 AM EST eCW1 ([facility]) I26.93 [id number] Single subsegmental pulmonary embolism without acute cor pulmonale Problem 08/25/2020 12:00:00 AM EST eCW1 ([facility]) D63.8 [id number] Anemia, chronic disease Problem 04/05/2020 1 2:00:00 AM EDT eCW1 ([facility]) D72.829 704300431 Leukocytosis, unspecified type Problem 03/28/2020 12:00:00 AM EDT eCW1 ([facility]) Z93.4 [id number] Jejunostomy tube present Problem 02/18/2020 12:00:00 AM EDT eCW1 ([facility]) Z93.4 860923454 Jejunostomy tube present Problem 02/18/2020 12:00:00 AM EDT eCW1 ([facility]) B95.7 320217859 Staphylococcus epidermidis infection Prob omkar 01/18/2020 12:00:00 AM EDT eCW1 ([facility]) R50.9 004571632 Persistent fever Problem 01/18/2020 12:00:00 AM EDT eCW1 ([facility]) T80.219A 027407814 Central venous line infection, initial en counter Problem 01/18/2020 12:00:00 AM EDT eCW1 ([facility]) A48.8 91113950 Serratia marcescens infection Problem 2019 12:00:00 AM EDT eCW1 ([facility]) T80.219A 529013734 Central venous line infection, initial en counter Problem 01/18/2020 12:00:00 AM EDT eCW1 ([facility]) A48.8 69098513 Serratia marcescens infection Problem 2019 12:00:00 AM EDT eCW1 ([facility]) B95.7 387269794 Staphylococcus epidermidis infection Prob omkar 01/18/2020 12:00:00 AM EDT eCW1 ([facility]) R50.9 861152631 Persistent fever Problem 01/18/2020 12:00:00 AM EDT eCW1 ([facility]) E16.1 5574163 Hyperinsulinemic hypoglycemia Problem 2019 12:00:00 AM EST eCW1 ([facility]) E16.1 3507659 Hyperinsulinemic hypoglycemia Problem 2019 12:00:00 AM EST eCW1 ([facility]) K94.13 Enterostomy malfunction Enterostomy malfunction Diagno sis 12/08/2020 01:41:35 PM [facility] Z78.9 Other specified health status Other specified health s tatus Diagnosis 12/08/2020 12:51:12 PM [facility] K94.21 Gastrostomy hemorrhage Gastrostomy hemorrhage Diagnosi s 12/06/2020 02:22:00 AM [facility] GI bleed GI bleed Diagnosis 12/06/2020 02:22:00 AM [facility] E16.2 Hypoglycemia, unspecified Hypoglycemia, unspecified Di agnosis 11/29/2020 01:04:36 PM [facility] intractable abd pain intractable abd pain Diagnosis 10/17/2020 05:21:00 PM [facility] Z9884 Bariatric surgery status Bariatric surgery status Diag nosis 10/17/2020 11:18:00 AM [facility] Z9049 Acquired absence of other specified part s of digestive tract Acquired absence of other specified parts of digestive tract Diagnosis 11:18:00 AM [facility] C91346 Personal history of urinary (tract) infe ctions Personal history of urinary (tract) infections Diagnosis 10/17/2020 11:18:00 AM [facility] I44364 Personal history of pulmonary embolism P ersonal history of pulmonary embolism Diagnosis 10/17/2020 11:18:00 AM [facility] Q94858 Contact with and (suspected) exposure to other viral communicable diseases Contact with and (suspected) exposure to other viral communicable diseases Diagnosis 10/17/2020 11:18:00 AM [facility] R7401 Elevation of levels of liver transaminas e levels Elevation of levels of liver transaminase levels Diagnosis 10/17/2020 11:18:00 AM [facility] R1031 Right lower quadrant pain Right lower quadrant pain Di agnosis 10/17/2020 11:18:00 AM [facility] D64.9 Anemia, unspecified Anemia, unspecified Diagnosis 1 10/21/2019 12:00:00 AM EDT [facility] R10.13 Epigastric pain Epigastric pain Diagnosis 07/31/2020 03:1 2:38 PM EDT [facility] ABD PAIN ABD PAIN Diagnosis 07/31/2020 03:12:38 PM ED T [facility] abd pain abd pain Diagnosis 07/31/2020 08:03:00 AM ED T [facility] R1033 Periumbilical pain Periumbilical pain Diagnosis 08/2020 05:17:00 AM EDT [facility] 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, 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 Postsurgical malabsorption, not elsewhere classified Diagnosis 07/31/2020 05:17:00 AM EDT [facility] 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) Diagnosis 07/31/2020 05:17:00 AM EDT [facility] E869 Volume depletion, unspecified Volume depletion, unspec ified Diagnosis 07/31/2020 05:17:00 AM EDT [facility] R112 Nausea with vomiting, unspecified Nausea with vo miting, unspecified Diagnosis 07/31/2020 05:17:00 AM EDT [facility] R1013 Epigastric pain Epigastric pain Diagnosis 07/31/2020 05:1 7:00 AM EDT [facility] K3184 Gastroparesis Gastroparesis Diagnosis 07/30/2020 03:19:00 PM EDT [facility] R1084 Generalized abdominal pain Generalized abdominal pain Diagnosis 07/30/2020 03:19:00 PM EDT [facility] D649 Anemia, unspecified Anemia, unspecified Diagnosis 0 06/03/2020 04:15:00 PM EDT [facility] N390 Urinary tract infection, site not specif ied Urinary tract infection, site not specified Diagnosis 06/03/2020 04:15:00 PM EDT [facility] K625 Hemorrhage of anus and rectum Hemorrhage of anus and r ectum Diagnosis 06/03/2020 04:15:00 PM EDT [facility] R000 Tachycardia, unspecified Tachycardia, unspecified Diag nosis 05/31/2020 07:27:00 PM EDT [facility] R002 Palpitations Palpitations Diagnosis 05/31/2020 07:27:00 P M EDT [facility] K5900 Constipation, unspecified Constipation, unspecified Di agnosis 05/22/2020 04:24:00 PM EDT [facility] K86.89 Other specified diseases of pancreas Oth er specified diseases of pancreas Diagnosis 03/22/2020 09:51:08 AM [facility] K31.84 Gastroparesis Gastroparesis Diagnosis 02/23/2020 09:03:07 AM [facility] G89.29 Other chronic pain Other chronic pain Diagnosis 04/2020 08:38:11 PM [facility] R10.9 Unspecified abdominal pain Unspecified abdominal pain Diagnosis 10/27/2019 08:38:11 PM [facility] R52 Pain, unspecified Pain, unspecified Diagnosis 10/27/2019 07:32:30 PM [facility] sepsis sepsis Diagnosis 10/27/2019 07:32:30 PM [facility] E876 Hypokalemia Hypokalemia Diagnosis 10/27/2019 11:19:00 AM [facility] N3001 Acute cystitis with hematuria Acute cystitis with pedro turia Diagnosis 10/27/2019 11:19:00 AM [facility] I509 Heart failure, unspecified Heart failure, unspecified Diagnosis 10/27/2019 11:19:00 AM [facility] R6521 Severe sepsis with septic shock Severe sepsis with sep tic shock Diagnosis 10/27/2019 11:19:00 AM [facility] A419 Sepsis, unspecified organism Sepsis, unspecified organ ism Diagnosis 10/27/2019 11:19:00 AM [facility] R509 Fever, unspecified Fever, unspecified Diagnosis 0 11:19:00 AM [facility] Surgeries/Procedures Procedure Description Date Indications Data Source(s) BLOOD COUNT COMPLETE AUTO&AUTO DIFRNTL WBC COUNT CBC AND DIFFER ENTIAL Routine 12/08/2020 5:45 AM EST 12/08/2020 05:45:00 AM [facility] PHOSPHORUS INORGANIC PHOSPHORUS LEVEL Routine 12/08/2020 5:[address] 12/08/2020 05:45:00 AM [facility] MAGNESIUM MAGNESIUM LEVEL Routine 12/08/2020 5:45 AM EST 12/08/2020 05:45:00 AM [facility] BASIC METABOLIC PANEL CALCIUM TOTAL BASIC METABOLIC PANEL Routi ne 12/08/2020 5:45 AM EST 12/08/2020 05:45:00 AM [facility] BLOOD COUNT COMPLETE AUTO&AUTO DIFRNTL WBC COUNT CBC AND DIFFER ENTIAL Timed 12/07/2020 6:12 AM EST 12/07/2020 06:12:00 AM [facility] TRIGLYCERIDES TRIGLYCERIDES Routine 12/07/2020 6:12 AM EST 12/07/2020 06:12:00 AM [facility] PHOSPHORUS INORGANIC PHOSPHORUS LEVEL Routine 12/07/2020 6:[address] 12/07/2020 06:12:00 AM [facility] MAGNESIUM MAGNESIUM LEVEL Routine 12/07/2020 6:12 AM EST 12/07/2020 06:12:00 AM [facility] CALCIUM IONIZED CALCIUM, IONIZED Routine 12/07/2020 6:12 AM EST 12/07/2020 06:12:00 AM [facility] COMPREHENSIVE METABOLIC PANEL COMPREHENSIVE METABOLIC PANEL Rou la nena 12/07/2020 6:12 AM EST 12/07/2020 06:12:00 AM EST [facility] BLOOD COUNT COMPLETE AUTO&AUTO DIFRNTL WBC COUNT CBC AND DIFFER ENTIAL Timed 12/06/2020 8:15 PM EST 12/06/2020 08:15:00 PM [facility] THROMBOPLASTIN TIME PARTIAL PLASMA/WHOLE BLOOD PARTIA L THROMBOPLASTIN TIME (PTT) Routine 12/06/2020 9:20 AM EST 12/06/2020 09:20 :00 AM [facility] CREATININE BLOOD CREATININE WITH GFR Routine 12/06/2020 9:20 AM ES T 12/06/2020 09:20:00 AM [facility] PROTHROMBIN TIME PROTIME INR Routine 12/06/2020 9:20 AM EST 12/06/2020 09:20:00 AM [facility] BLOOD COUNT COMPLETE AUTOMATED CBC AND DIFFERENTIAL Routine 12/06/2020 9:20 AM EST 12/06/2020 09:20:00 AM EST U [facility] PHOSPHORUS INORGANIC PHOSPHORUS LEVEL Routine 12/06/2020 9:[address] 12/06/2020 09:20:00 AM [facility] MAGNESIUM MAGNESIUM LEVEL Routine 12/06/2020 9:20 AM EST 12/06/2020 09:20:[address] [facility] [address] ANGIO ABD&PLVIS CNTRST MTRL W/WO CNTRST IMGES CT A NGIOGRAPHY ABDOMEN AND PELVIS 83300 Routine 12/06/2020 6:19 AM EST 12/06/2020 06 :19:41 AM [facility] BLOOD COUNT COMPLETE AUTO&AUTO DIFRNTL WBC COUNT CBC AND DIFFER ENTIAL Routine 12/06/2020 3:27 AM EST 12/06/2020 03:27:00 AM [facility] BASIC METABOLIC PANEL CALCIUM TOTAL BASIC METABOLIC PANEL Routi ne 12/06/2020 3:27 AM EST 12/06/2020 03:27:00 AM EST [facility] COVID-19 PCR COVID-19 PCR Routine 12/06/2020 2:28 AM EST 12/06/2020 02:28:00 AM [facility] UPR GI NDSC TNDSC US FINE NDL ASPIR/BX ESOPH 12:00:00 AM EST [facility] ([facility]) UPR GI NDSC PLMT PRQ GASTROSTOMY TUBE 10/25/2020 12:00 :00 AM EST [facility] ([facility]) UPPER NDSC BIOPSY SINGLE/MULTIPLE 10/20/2020 12:00:00 AM EST [facility] ([facility]) MAGNESIUM MAGNESIUM Routine 08/04/2020 4:42 AM EDT 08/04/2020 08:42:00 AM EDT [facility] BASIC METABOLIC PANEL CALCIUM TOTAL BASIC METABOLIC PANEL Routi ne 08/04/2020 4:42 AM EDT 08/04/2020 08:42:00 AM EDT [facility] FL UPPER GI WITH DOUBLE CONTRAST WITH SMALL BOWEL FOLL OW THROUGH FL UPPER GI WITH DOUBLE CONTRAST WITH SMALL BOWEL FOLLOW THROUGH Routine 1 11:54 AM EDT 08/03/2020 03:54:38 PM EDT [facility] POCT GLUCOSE METER UNSOLICITED RESULTS POCT GLUCOSE METER U NSOLICITED RESULTS Routine 08/02/2020 11:00 AM EDT 08/02/2020 03:00:00 PM EDT [facility] CYANOCOBALAMIN VITAMIN B-12 VITAMIN B12 AND FOLATE Routine 08/02/2020 10:33 AM EDT 08/02/2020 02:33:00 PM EDT [facility] IRON BINDING CAPACITY IRON BINDING CAPACITY, TOTAL Routine 08/02/2020 10:33 AM EDT 08/02/2020 02:33:00 PM EDT [facility] BLOOD COUNT RETICULOCYTE AUTOMATED RETICULOCYTES Routine 08/02/2020 10:33 AM EDT 08/02/2020 02:33:00 PM EDT [facility] HAPTOGLOBIN QUANTITATIVE HAPTOGLOBIN Routine 08/02/2020 10:33 AM ED T 08/02/2020 02:33:00 PM EDT [facility] FERRITIN FERRITIN Routine 08/02/2020 10:33 AM EDT 08/02/2020 02:33:00 PM EDT [facility] POCT GLUCOSE METER UNSOLICITED RESULTS POCT GLUCOSE METER U NSOLICITED RESULTS Routine 08/02/2020 9:49 AM EDT 08/02/2020 01:49:00 PM EDT [facility] EEG-INPATIENT EEG-INPATIENT Routine 08/02/2020 9:06 AM EDT 08/02/2020 01:06:54 PM EDT [facility] UPPER GI ENDOSCOPY UPPER GI ENDOSCOPY 08/02/2020 9:05 AM E DT 08/02/2020 01:05:27 PM EDT [facility] UPPER GI NDSC DX W/WO COLLECTION SPECIMEN EGD (ESOPHAGOGASTRODU ODENOSCOPY) 08/02/2020 8:09 AM EDT abdominal pain/hx ru-en y with reversal 08/02/2020 12: 09:00 PM EDT - 08/02/2020 12:48:00 PM EDT [facility] US ABDOMINAL REAL TIME W/IMAGE DOCUMENTATION US ABDOMEN COMPLET E Routine 08/02/2020 6:57 AM EDT 08/02/2020 10:57:56 AM EDT [facility] CUL BACT STOOL AEROBIC ADDL PATHOGENS&ID EA ENTERIC PATHOGEN PA HARPAL Routine 08/02/2020 5:45 AM EDT 08/02/2020 09:45:00 AM EDT [facility] LEUKOCYTE ASSMT FECAL QUAL/SEMIQUANTITATIVE FECAL LEUKOCYTES Ro utine 08/02/2020 5:45 AM EDT 08/02/2020 09:45:00 AM EDT [facility] PROTHROMBIN TIME PROTHROMBIN TIME NO THERAPY OR UNKNOWN Routine 08/02/2020 5:30 AM EDT 08/02/2020 09:30:00 AM EDT [facility] BLOOD COUNT COMPLETE AUTO&AUTO DIFRNTL WBC COUNT HC CBC W/ DIFFERENTIAL Routine 08/02/2020 5:30 AM EDT 08/02/2020 09:30:00 AM EDT [facility] COMPREHENSIVE METABOLIC PANEL COMPREHENSIVE METABOLIC PANEL Rou la nena 08/02/2020 5:30 AM EDT 08/02/2020 09:30:00 AM EDT [facility] HC SARS-COV-2 COVID-19 AMP PRB HC SARS-COV-2 COVID-19 AMP PRB S TAT 08/01/2020 2:10 PM EDT 08/01/2020 06:10:00 PM EDT [facility] PROLACTIN PROLACTIN STAT 08/01/2020 7:49 AM EDT 08/01/2020 11:49:00 AM EDT [facility] LIPASE LIPASE Routine 08/01/2020 7:49 AM EDT 08/01/20 20 11:49:00 AM EDT [facility] AMYLASE AMYLASE Routine 08/01/2020 7:49 AM EDT 020 11:49:00 AM EDT [facility] BLOOD COUNT COMPLETE AUTO&AUTO DIFRNTL WBC COUNT HC CBC W/ DIFF ERENTIAL STAT 07/31/2020 10:40 PM EDT 08/01/2020 02:40:00 AM EDT [facility] BASIC METABOLIC PANEL CALCIUM TOTAL BASIC METABOLIC PANEL STAT 07/31/2020 10:40 PM EDT 08/01/2020 02:40:00 AM EDT [facility] PROCALCITONIN TEST PROCALCITONIN TEST STAT 07/31/2020 3:58 PM E DT 07/31/2020 07:58:00 PM EDT [facility] BLOOD COUNT COMPLETE AUTO&AUTO DIFRNTL WBC COUNT HC CBC W/ DIFF ERENTIAL STAT 07/31/2020 3:58 PM EDT 07/31/2020 07:58:00 PM EDT [facility] C-REACTIVE PROTEIN C-REACTIVE PROTEIN STAT 07/31/2020 3:58 PM E DT 07/31/2020 07:58:00 PM EDT [facility] LIPASE LIPASE STAT 07/31/2020 3:58 PM EDT 07/31/20 20 07:58:00 PM EDT [facility] COMPREHENSIVE METABOLIC PANEL COMPREHENSIVE METABOLIC PANEL STA T 07/31/2020 3:58 PM EDT 07/31/2020 07:58:[address] [facility] POCT GLUCOSE, DOCKED POCT GLUCOSE, DOCKED Routine 11/02/2019 11:40 AM EST 11/02/2019 04:40:00 PM [facility] BASIC METABOLIC PANEL CALCIUM TOTAL BASIC METABOLIC PANEL STAT 11/02/2019 7:48 AM EST 11/02/2019 12:48:00 PM EST [facility] POCT GLUCOSE, DOCKED POCT GLUCOSE, DOCKED Routine 11/02/2019 7:42 AM EST 11/02/2019 12:42:00 PM [facility] BLOOD COUNT COMPLETE AUTO&AUTO DIFRNTL WBC COUNT CBC AND DIFFER ENTIAL Routine 11/02/2019 4:50 AM EST 11/02/2019 09:50:00 AM [facility] PHOSPHORUS INORGANIC PHOSPHORUS LEVEL Routine 11/02/2019 4:[address] 11/02/2019 09:50:00 AM [facility] MAGNESIUM MAGNESIUM LEVEL Routine 11/02/2019 4:50 AM EST 11/02/2019 09:50:00 AM [facility] BASIC METABOLIC PANEL CALCIUM TOTAL BASIC METABOLIC PANEL Routi ne 11/02/2019 4:50 AM EST 11/02/2019 09:50:00 AM EST [facility] POCT GLUCOSE, DOCKED POCT GLUCOSE, DOCKED Routine 11/02/2019 4:34 AM EST 11/02/2019 09:34:00 AM [facility] GLUCOSE QUANTITATIVE BLOOD XCPT REAGENT STRIP POCT GLUCOSE, SEBASTIEN YOUNG Routine 11/01/2019 11:56 PM EST 11/02/2019 04:56:00 AM [facility] GLUCOSE QUANTITATIVE BLOOD XCPT REAGENT STRIP POCT GLUCOSE, DOC YAMILETHD Routine 11/01/2019 8:09 PM EST 11/02/2019 01:09:00 AM [facility] GLUCOSE QUANTITATIVE BLOOD XCPT REAGENT STRIP POCT GLUCOSE, DOC YAMILETHD Routine 11/01/2019 4:23 PM EST 11/01/2019 09:23:00 PM [facility] GLUCOSE QUANTITATIVE BLOOD XCPT REAGENT STRIP POCT GLUCOSE, DOC YAMILETHD Routine 11/01/2019 11:53 AM EST 11/01/2019 04:53:00 PM [facility] GLUCOSE QUANTITATIVE BLOOD XCPT REAGENT STRIP POCT GLUCOSE, SEBASTIEN CARSOND Routine 11/01/2019 8:04 AM EST 11/01/2019 01:04:00 PM [facility] GLUCOSE QUANTITATIVE BLOOD XCPT REAGENT STRIP POCT GLUCOSE, DOC HECTOR Routine 11/01/2019 3:53 AM EST 11/01/2019 08:53:00 AM [facility] BLOOD COUNT COMPLETE AUTO&AUTO DIFRNTL WBC COUNT CBC AND DIFFER ENTIAL Routine 11/01/2019 3:47 AM EST 11/01/2019 08:47:00 AM [facility] PHOSPHORUS INORGANIC PHOSPHORUS LEVEL Routine 11/01/2019 3:[address] 11/01/2019 08:47:00 AM [facility] MAGNESIUM MAGNESIUM LEVEL Routine 11/01/2019 3:47 AM EST 11/01/2019 08:47:00 AM [facility] BASIC METABOLIC PANEL CALCIUM TOTAL BASIC METABOLIC PANEL Routi ne 11/01/2019 3:47 AM EST 11/01/2019 08:47:00 AM [facility] GLUCOSE QUANTITATIVE BLOOD XCPT REAGENT STRIP POCT GLUCOSE, SEBASTIEN YOUNG Routine 10/31/2019 10:22 PM EST 11/01/2019 03:22:00 AM [facility] GLUCOSE QUANTITATIVE BLOOD XCPT REAGENT STRIP POCT GLUCOSE, SEBASTIEN YOUNG Routine 10/31/2019 4:14 PM EST 10/31/2019 09:14:00 PM [facility] GLUCOSE QUANTITATIVE BLOOD XCPT REAGENT STRIP POCT GLUCOSE, SEBASTIEN YOUNG Routine 10/31/2019 11:23 AM EST 10/31/2019 04:23:00 PM [facility] GLUCOSE QUANTITATIVE BLOOD XCPT REAGENT STRIP POCT GLUCOSE, SEBASTIEN YOUNG Routine 10/31/2019 8:05 AM EST 10/31/2019 01:05:00 PM [facility] GLUCOSE QUANTITATIVE BLOOD XCPT REAGENT STRIP POCT GLUCOSE, SEBASTIEN YOUNG Routine 10/31/2019 4:17 AM EST 10/31/2019 09:17:00 AM [facility] PHOSPHORUS INORGANIC PHOSPHORUS LEVEL Routine 10/31/2019 4:[address] 10/31/2019 09:11:00 AM [facility] MAGNESIUM MAGNESIUM LEVEL Routine 10/31/2019 4:11 AM EST 10/31/2019 09:11:00 AM [facility] CALCIUM IONIZED CALCIUM, IONIZED Routine 10/31/2019 4:11 AM EST 10/31/2019 09:11:00 AM [facility] BASIC METABOLIC PANEL CALCIUM TOTAL BASIC METABOLIC PANEL Routi ne 10/31/2019 4:11 AM EST 10/31/2019 09:11:00 AM EST [facility] GLUCOSE QUANTITATIVE BLOOD XCPT REAGENT STRIP POCT GLUCOSE, DOC KED Routine 10/30/2019 10:09 PM EST 10/31/2019 03:09:00 AM [facility] GLUCOSE QUANTITATIVE BLOOD XCPT REAGENT STRIP POCT GLUCOSE, DOC KED Routine 10/30/2019 6:52 PM EST 10/30/2019 11:52:00 PM [facility] RADEX GI TRACT UPPER W/WO DELAYED FILMS W/O KUB FLUORO UPPER GI SERIES Routine 10/30/2019 1:58 PM EST 10/30/2019 06:58:38 PM [facility] TRIGLYCERIDES TRIGLYCERIDES STAT 10/30/2019 12:33 PM EST 10/30/2019 05:33:00 PM [facility] PHOSPHORUS INORGANIC PHOSPHORUS LEVEL STAT 10/30/2019 12:[address] 10/30/2019 05:33:00 PM [facility] MAGNESIUM MAGNESIUM LEVEL STAT 10/30/2019 12:33 PM EST 10/30/2019 05:33:00 PM [facility] BASIC METABOLIC PANEL CALCIUM TOTAL BASIC METABOLIC PANEL STAT 10/30/2019 12:33 PM EST 10/30/2019 05:33:00 PM [facility] XR ABDOMEN AP ERECT ONLY [id number] XR ABDOMEN AP ERECT ONLY [id number] R outine 10/29/2019 10:57 AM EST Pain 10/29/2019 03:57:25 PM EST Pain [facility] Pain RADIOLOGY REPORT RADIOLOGY REPORT 10/29/2019 10:37 AM EST 10/29/2019 03:37:30 PM [facility] RADIOLOGY REPORT RADIOLOGY REPORT 10/29/2019 10:37 AM EST 10/29/2019 03:37:29 PM [facility] MRI SPINAL CANAL LUMBAR W/O &W/CONTR MATRL MR LUMBAR SPINE WITH AND WITHOUT CONTRAST [id number] Routine 10/28/2019 1:54 PM EST 10/28/2019 06:54:00 PM [facility] ECHO TTHRC R-T 2D W/WOM-MODE COMPL SPEC&COLR DOP ECHOCARDIO GRAM 2D COMPLETE Routine 10/28/2019 8:01 AM EST 10/28/2019 01:01:53 PM [facility] NATRIURETIC PEPTIDE PROBNP Routine 10/28/2019 6:39 AM EST 10/28/2019 11:39:00 AM [facility] IRON TOTAL FE BINDING CAPACITY Routine 10/28/2019 6:39 AM EST 10/28/2019 11:39:00 AM [facility] SEDIMENTATION RATE RBC AUTOMATED SEDIMENTATION RATE, AUTOMATED Routine 10/28/2019 6:39 AM EST 10/28/2019 11:39:00 AM [facility] BLOOD COUNT COMPLETE AUTOMATED CBC AND DIFFERENTIAL Routine 10/28/2019 6:39 AM EST 10/28/2019 11:39:00 AM [facility] C-REACTIVE PROTEIN C-REACTIVE PROTEIN Routine 10/28/2019 6:[address] 10/28/2019 11:39:00 AM [facility] PHOSPHORUS INORGANIC PHOSPHORUS LEVEL Routine 10/28/2019 6:[address] 10/28/2019 11:39:00 AM [facility] MAGNESIUM MAGNESIUM LEVEL Routine 10/28/2019 6:39 AM EST 10/28/2019 11:39:00 AM [facility] LACTATE LACTIC ACID LEVEL, PLASMA Routine 10/28/2019 6:39 AM EST 10/28/2019 11:39:00 AM [facility] FERRITIN FERRITIN LEVEL Routine 10/28/2019 6:39 AM EST 10/28/2019 11:39:00 AM [facility] COMPREHENSIVE METABOLIC PANEL COMPREHENSIVE METABOLIC PANEL Rou la nnea 10/28/2019 6:39 AM EST 10/28/2019 11:39:00 AM [facility] CT ABDOEN & PELVIS W/CONTRAST MATERIAL CT ABDOMEN PELVIS WI TH CONTRAST [id number] STAT 10/28/2019 4:12 AM EST 10/28/2019 09:12:53 AM [facility] CULTURE BACTERIAL BLOOD AEROBIC W/ID ISOLATES BLOOD CULTURE R outine 10/28/2019 1:04 AM EST 10/28/2019 06:04:00 AM [facility] CULTURE BACTERIAL BLOOD AEROBIC W/ID ISOLATES BLOOD CULTURE R outine 10/28/2019 12:55 AM EST 10/28/2019 05:55:00 AM [facility] GLUCOSE QUANTITATIVE BLOOD XCPT REAGENT STRIP POCT GLUCOSE, DOC KED Routine 10/27/2019 11:39 PM EST 10/28/2019 04:39:00 AM [facility] URNLS DIP STICK/TABLET REAGENT AUTO MICROSCOPY URINALYSIS W ITH MICROSCOPIC Routine 10/27/2019 10:27 PM EST 10/28/2019 03:27:00 AM EST [facility] CULTURE BCT ISOL&PRSMPTV ID ISOLATE EA URINE URINE CULTURE Ro utine 10/27/2019 10:27 PM EST 10/28/2019 03:27:00 AM EST [facility] EKG- ALL NON MCR/TRI PAYERS 10/16/2019 12:00:00 AM EST [email or web address] ([facility]) Results ID Date Data Source [id number] 12/09/2020 09:39:28 PM EST [facility] Name Value Range Interpretation Code Description Data Sumaya rce(s) Supporting Document(s) Discharge Summary [facility] SUHEYs4gRvFMWxVb47/GVIqqJEOir9WgTIgaXJm0HXzcHZPvG1VpDKR0dJ7hCDN6XVrCJjLfHlTeHdY3 lbm [file] DQo+Pk0Gu6TqnqH8seSpFLtuEPF0Az8MNJVKX3CKPc== ID Date Data Source [id number] 12/08/2020 03:52:56 PM [facility] Name Value Range Interpretation Code Description Data Sumaya rce(s) Supporting Document(s) [facility] WIVLSk0qFuDFXtRl64/OTVhsQVKmm4JwNSfbIMy5PLstVPOuW2SyQUO7oL1kYZQ8MIcJCpHlKqYbEjC8 lbm [file] ICAgICAgICAgICAgICAgICAgICAgICAgICAgICAgIC AgICAgICAgICAgICAgICAgICAgICAgICAgICAgICAgICAgICAgICAgICAgICAgICAgICAgICAgICAgIC GvFC3NDEQtLEUvBKCuFRFpKNLcGZEzFOPpJOCePVFbTYUyOTDdUBRzRNFeFFOhLPKbTSUxKFMnWEOzWP AgICAgICAgICAgICAgICAgICAgICAgICAgICAgICAg ZIHtUAPtIXXyYGAsBI0UGWUbFBBsZHDmFLCgOZQeSMXfFYPcXODkSAOcPCOaKSNpQPImCZKuQINiMLGa TNJzKSRrIBYrDKYwNKQkPLBwIQIzQMEvPGCiHYSbQTFjRUGaTPVhHPQqYHBcXJYgQBZwTPQyNB4NZZNp ICAgICAgICAgICAgICAgICAgICAgICAgICAgICAgIC AgICAgICAgICAgICAgICAgICAgICAgICAgICAgICAgICAgICAgICAgICAgICAgICAgICAgICAgICAgIC LcYQGoPD1SMWHyVOLkKMUaBTTnHFOeKPNsEUUtBGEgILBdHUVuMMCdQZWcMCLzBRWvZTLpVUOwADUpMB AgICAgICAgICAgICAgICAgICAgICAgICAgICAgICAg GTRePVObLCFyQYUtCKWlXL8YJUKoFGRhXWKmFHRmNUCgGAIfEXCzHKVxWHSuUIVzKNGhGJVzPWYvGHJh RWAaMEPzSDAnBYEgWQEaKVGsUGUiMPSaFABeOMPnMVRwVEDwGEDuDMWuTRPuOSVdIETySAFuKUXpYY6S ICAgICAgICAgICAgICAgICAgICAgICAgICAgICAgIC AgICAgICAgICAgICAgICAgICAgICAgICAgICAgICAgICAgICAgICAgICAgICAgICAgICAgICAgICAgIC NkSWHoWTAfOR0YIZLcVRCkCJSlQEAhMUAxIASyLVTaNBZqLBMdIHBrPDXkZOIrUAToVQWtDSLbSZFyYX AgICAgICAgICAgICAgICAgICAgICAgICAgICAgICAg EUCnCKIsCLHfBMAvXGKvPUZgBN1OOTXyGKAsNAGaNPAxOURpOTHtZBBzXBKyPMUiEPWfYVOwQPJlSVNj ICAgICAgICAgICAgICAgICAgICAgICAgICAgICAgICAgICAgICAgICAgICAgICAgICAgICAgICAgICAg DY8LRB18xOUlw7K9OUScOO4kgdm/Lp8QOPuaxzSdiU NhIS6QVzAiIA4wur6SJuIgUF7asb6BQFhFNrLgQ3L3gYYvKJQyNWEQJzCmN36iHPqwKk27TFqqWXIqBa NqVPt8Uh6UXwLqX2nrHVMoJiO6BHHkLaR5TTKnGjE4BHZrZlHzUDFhSEEqGEOeGIPJBVF3LAUhZyFaXb NzJAFxWPmuRGAPJN3EWoGcK6XcuY98TGoUQu8+DQpl vqNmRyfWNoRlJEQxa4UhCAn4SW4HGDYeTfqwk5JiGROrJJEAMKfxHT6KNAT2EKCbQVZuJe9IIGAqP637 ffDdRV9MNw3IDbUdXZ3ltf9LEOGaYZPoHwoTDfh7TLdrAS1WbEVmDAnCt10okIe2ctKdqKNZIRgxHGZy pVJzF41bXGAaXPURQzRHYGP7DQBgVWjrNbCkHWMyBk gdATZEOKeANeAkC1Spf5HjJkI2DSLpMuBdGRyfKTYpVrN8NS82dHlbHC2NENCuCOAuPH20XGBkQXLmNg 8BKy9FPcCaJD4zgj8ABKShWOVdAfoFBii8HVayNF4VsXLoR1InrZXsx3oUSjLmU7HSXBDbVFDnBv5DYA VhKiOyYSLvETvqBQ8lMXItCMMAdZeiniK3AI4GMU6r odVlEN9XKiOjUl1kHc2QKjYlY3UjS7ZbLHGjCFGNIRakXL1HUPjlUT2yXI7Ft2MWjBPnbR4pfw3YXNIl IIElSupyos6WHrrzJ5G8jVqwCGRtSRNdJXNQQOmtED0AHWOeMWW3TCX2MUSnDERRXbZuY97kJH9FB2Mn l05wFgS3SBYiTkGcSVbbZN70sYjhytYoaLQdnGhpKR 0NCj4+AKhipvLsOjaGSbeoIMSYXmGsPYXEPeUnNSAnPZJbVOGkKkA0ZbUzMo6MZPJhZVRqZSWrZlIhBU SoBFHwNLyfXOTcRJZaHIC8IQVpOPNmBA9PZhTzYKOtPLX3WIQzZVLeEEPufg9ZZWDxGZYcCWK1NlQjFU JeVADhPUroSBSpLKG7XPRwREQfMVOvCD3XRjGmBSHj XGBdKiMvDDDuZIObjz0IUJHuELHsHuJ7NGHrAHNjRVXmNFylUVSkALS6MoJ8LBXxMCAvRB0WZiBlXDKm XJX8PZimEXHlMXFaaq4CDXLoLDGhICE6JlIsYUPcVEWhHQvmCDYhPRPcCRg2EOEjQQJlMW9YGxQhJYQc LDOaCXQzPHPkZSVvox2FCJFwWMJrGcVlQaAfJGShXS DhSSsxJDGwNSV5ZAN2GFSwBEQpAH2IPjCwGIOrCJx9PSTiBRWuFXYrsb2LUIRyPMVyJEZ5LYJyOHPjHT IcIIurQPYoNENuMMbtYVEhLXAgMV5VUdKbLEYmRzFbAhPxUSOhOWPhqu7NKIXzHRHjFLZ9PxFxNDYbVS EoVAdgJODhCWL6WrjcBKMzUDBhKV5DQtPbNPSrHhY8 SWHhTPOuZCDmng9HJKQxIJAnHWf7USEfYYTxZPKzIOcyUTCyNIA3MMNzUPTwAGBfIE4YNyLkEDLsEhfc PILjTJWwRLAtlv8YBEDsDOLaUtF5RVZiREHnRCEfVQhkRDGeTHK9NQviSIIbQNNoLJ5VKxCqEJWcYle1 AhImATKxJVXxta0EEXUuFNOxEULrAOLxMURxZBUcYP kiAIMpRGM9MNYhRTRoJOEjEU1GQsAbUBQpLvd3LkIuWTWnQYYbjb6TQHJdKHHmJLr1CJKgBAPlNZAhMO caKTCuLZSmERx8REPhVXJaVO9ZKxKjVFYuZdQuVtLsOTOgWEUipb4KBRZwSOJiVIGcHPWhWIFzRWQnVG pdXNJyAWOyLCJ5YZVvODUlNG4CIvLpZPFpCLQ9QOBw JNNuYXKewq1OJVNbALX8XlKlKpZiQGStNJGfYLvfZCTyFXXsNOKmRAAqGDWcYR4HUrOwOHAuBDP6HCYi BIOtYVHfoh0QGRSxPCK7CvpeTfLfWGNiQKXxLLdeUIJhVQG8Lwk2CUZqDGHzNC7RRbJgVFOcAZM1WqFm XCMkEVGnqa2HMOAzJEQ4RMolINWdIVIwYJQzMMsrDP WsBII1PZk3XNKvMCBgJO3UOoZfHRwqFRJEUbx3ZKnnN5v9WUM8CS8JE6Bei1QyHCPnFWZOHVfyYC2bmy HxWCShTh3HX9gCItg7GeJ5OZm9IMS3ECK2KrHkIsG8DzMxMeVxUFk8RJXrDr0nWQejYSp9UrM4NPl3Bb HdYPT2OHHbOZJmCFU6ZvyyTpF5KcIgME4UJo4YVfW6NTF5hCUmJl0HFYZwCxJUVqXmAC1OKAm= ID Date Data Source [id number] 12/08/2020 12:42:22 PM [facility] Name Value Range Interpretation Code Description Data Sumaya rce(s) Supporting Document(s) [facility] POIQKc8cQlUGGgLi41/TZNmpXKWqs2HcUJdpTKk8HGggDKBuY3KdWSH1iZ9nTHJ6DDxYUfRlSlOcUdF9 lbm OpLcjJBnHcJWQdJthAQaMkEJhwUxiicGKdGR5IcDV1CCPyS95gMYCdCWPtB1NuJFM0YqU+Og3DASQbzB SeXB8QDrsK7P8aPff3Wn+/zkqkGEF5J4lDAGLtx4jxIbzQF75YEodO7q4UKZNY7CNzC8A/f8yUdvT7NL 9Q9iVce+FJCDZ2n1tvv+7RsIzp//5xbUmllIR02/zX QLErW1L//ScwWIPeiPtqF8LEnKQ63xCveW87bEtcRtvL0dyXWIIPwGUGjzxQftuZ7RA2Ko/eXPUm1+l5 Npy+Eh5yGCU27I81t5S/tXKSTELE1ABQS8n1N+e81pp7PUep+mLO+2u5iVNEvHGBkYgh0ADftWBCH6jG D4GTQJN3izkeOjWINiS/OdQkFmpzpMgVyllDm2Qpnv 19RVuWDGTMV+VReRsQbmi3TPn6+gZfQ3gG+27kpV1jsSrwXZjY6l8DyV5221RkHbEQIq8szFx0CCZ+TH X3CEMp7lVtwFGWmePKwenNOXJLpyDc1cGFfNLcXV/Sr+6ME9UHoa/TUe/qlvKatGGIUH6rs1906h0ucg AZgo5YB2CXTKnycpJ7tTrpGGN65FdbtiGkhvZruyew B8nCtnn0+VqEkf0Gqj9sVOntrFYdosgEXePicJQ00Rd58COJLzVdD4tW9bG4bRlF9LVQ5YMqPkM6tMKd 22BXi7WiVJaAm3vLseiCOVmHPN0bgdGlw4pJxY+MzZiN0KCKLVLLd3ms9MFdFYDAVYE7a8GPqFBSzWkp Re2XwH9r87Fvtm1oqDG4hwDq4+uYSF7FX5T32KpkQY 3NfL2pWa7qANyzAGdwKNiQcBcAvhVhltkoGE5nfjgEFdN1WXlUGtzTLo6ECniRWupUbK1JGUqKMn5/ZL 4PMQopj5psnam8H1nrNStjAnt5ZSOcfQig9WAmBexjckOtx/0aOGZeutNwE1uBNVedNWHJ/XjQZienx+ 87kt47f3ag9/16S453gPUF+MYQ89IOx7yljDmF6c7v [file] pnKSa3A2K5ME7yPWZALj7+ZXorpZPrdLbwLNVSEzR9FCqhUUaeBZVGGe3N ID Date Data Source [id number] 12/08/2020 10:52:24 AM EST [facility] Name Value Range Interpretation Code Description Data Sumaya rce(s) Supporting Document(s) Consultation [facility] IRNIPh5iGmFRJeYf15/NNMlfVXZbu0FbWBpeDGq2WMcqKZYvY0BcYUS9oB2rCAB0VMsHImGiPzUtWbP0 lbm [file] OpDL2GUHn= ID Date Data Source [id number] 12/08/2020 09:14:13 AM [facility] Name Value Range Interpretation Code Description Data Sumaya rce(s) Supporting Document(s) Leukocytes [#/volume] in Blood by Automated count 4.6 10*3/uL 4-10 [facility] Erythrocytes [#/volume] in Blood by Automated count 3.86 10*6/uL 4.1- 5.3 L [facility] Hemoglobin [Mass/volume] in Blood 11.0 g/dL 11.5-15.5 L [facility] Hematocrit [Volume Fraction] of Blood by Automated count 33.1 % 3 6-45 L [facility] Erythrocyte mean corpuscular volume [Entitic volume] by Auto mated count 85.9 fL 80-96 [facility] Erythrocyte mean corpuscular hemoglobin [Entitic mass] by Automated count 28.6 pg 27-33 [facility] Erythrocyte mean corpuscular hemoglobin concentration [Mass/volume] by Automated count 33.2 g/dL [facility].0-[facility].0 [facility] distribution width [Ratio] by Automated count 17.3 % 11.5-14.5 H [facility] Platelets [#/volume] in Blood by Automated count 273 10*3/uL 150-400 [facility] Differential cell count method - Blood [facility] Neutrophils/100 leukocytes in Blood by Automated count 64 % [facility] Lymphocytes/100 leukocytes in Blood by Automated count 25 % [facility] Monocytes/100 leukocytes in Blood by Automated count 4 % [facility] Eosinophils/100 leukocytes in Blood by Automated count 6 % [facility] Neutrophils [#/volume] in Blood by Automated count 2.97 10*3/uL 1.8-7 .0 [facility] Lymphocytes [#/volume] in Blood by Automated count 1.16 10*3/uL 1.2-4 .0 L [facility] Monocytes [#/volume] in Blood by Automated count 0.17 10*3/uL 0-0.8 [facility] Eosinophils [#/volume] in Blood by Automated count 0.26 10*3/uL 0-0.5 [facility] Variant lymphocytes/100 leukocytes in Blood by Manual count 1 % [facility] Lymphocytes [#/volume] in Blood 0.04 10*3/uL 0 H [facility] Poikilocytosis [Presence] in Blood by Light microscopy [facility] Julia cells [Presence] in Blood by Light microscopy [facility] ID Date Data Source [id number] 12/08/2020 09:45:26 AM [facility] Name Value Range Interpretation Code Description Data Sumaya rce(s) Supporting Document(s) Bicarbonate [Moles/volume] in Serum 26 mmol/L 22-29 [facility] Chloride [Moles/volume] in Serum or Plasma 103 mmol/L 98-107 [facility] Creatinine [Mass/volume] in Serum or Plasma 0.54 mg/dL 0.50-0.90 [facility] Glucose [Mass/volume] in Serum or Plasma 125 mg/dL 70-140 [facility] Potassium [Moles/volume] in Serum or Plasma 4.1 mmol/L 3.4-5.1 [facility] Sodium [Moles/volume] in Serum or Plasma 135 mmol/L 136-145 L [facility] Urea nitrogen [Mass/volume] in Serum or Plasma 18 mg/dL 6-20 [facility] Anion gap 3 in Serum or Plasma 6 mmol/L 8-15 L [facility] Osmolality of Serum or Plasma by calculation 283 mosm/kg 275-300 [facility] Creatinine/Urea nitrogen [Mass Ratio] in Serum or Plasma 33 [facility] Calcium [Mass/volume] in Serum or Plasma 9.2 mg/dL 8.6-10.0 [facility] Glomerular filtration rate/1.73 sq M pre dicted among non-blacks [Volume Rate/Area] in Serum or Plasma by Creatinine-based formula (MDRD) >6 0 [facility] Glomerular filtration rate/1.73 sq M pre dicted among blacks [Volume Rate/Area] in Serum or Plasma by Creatinine-based formula (MDRD) >60 [facility] ID Date Data Source [id number] 12/08/2020 09:45:26 AM [facility] Name Value Range Interpretation Code Description Data Sumaya rce(s) Supporting Document(s) Phosphate [Mass/volume] in Serum or Plasma 4.0 mg/dL 2.5-4.5 [facility] ID Date Data Source [id number] 12/08/2020 01:49:28 PM [facility] Name Value Range Interpretation Code Description Data Sumaya rce(s) Supporting Document(s) Magnesium [Mass/volume] in Serum or Plasma 2.1 mg/dL 1.6-2.6 [facility] ID Date Data Source [id number] 12/07/2020 01:32:00 [place] [address] RESPIRATORY CARE REPORT ==== ---------NAME------- NUMBER SEX AGE ADMIT DISC. XRAY# F/C TYPECHARLEBOJOE Torres [id number] F 40 12/05/20 12/05/20 [id number] BB2 E/R DATE OF : 1980 M/R# [id number] #: [id number] TR-03 LOCATION: EMERGENCY DEPT FORMERLY [facility], 1928–1983 [id number] COMP LETE:12/06/20 04:19 T [id number] PHYSICIAN: BART CARCAMO Name Value Range Interpretation Code Description Data Sumaya rce(s) Supporting Document(s) ID Date Data Source [id number] 12/07/2020 06:52:07 AM [facility] Name Value Range Interpretation Code Description Data Sumaya rce(s) Supporting Document(s) Leukocytes [#/volume] in Blood by Automated count 4.2 10*3/uL 4-10 [facility] Erythrocytes [#/volume] in Blood by Automated count 3.82 10*6/uL 4.1- 5.3 L [facility] Hemoglobin [Mass/volume] in Blood 10.8 g/dL 11.5-15.5 L [facility] Hematocrit [Volume Fraction] of Blood by Automated count 32.7 % 3 6-45 L [facility] Erythrocyte mean corpuscular volume [Entitic volume] by Auto mated count 85.5 fL 80-96 [facility] Confirmed Identity of Sample Erythrocyte mean corpuscular hemoglobin [Entitic mass] by Automated count 28.2 pg 27-33 [facility] Erythrocyte mean corpuscular hemoglobin concentration [Mass/volume] by Automated count 33.0 g/dL 32.0-36.0 [facility] E[facility]th[facility] distribution width [Ratio] by Automated count 16.9 % 11.5-14.5 H [facility] Platelets [#/volume] in Blood by Automated count 269 10*3/uL 150-400 [facility] Differential cell count method - Blood [facility] Neutrophils/100 leukocytes in Blood by Automated count 66 % [facility] Lymphocytes/100 leukocytes in Blood by Automated count 22 % [facility] Monocytes/100 leukocytes in Blood by Automated count 9 % [facility] Eosinophils/100 leukocytes in Blood by Automated count 2 % [facility] Basophils/100 leukocytes in Blood by Automated count 1 % [facility] Neutrophils [#/volume] in Blood by Automated count 2.80 10*3/uL 1.8-7 .0 [facility] Lymphocytes [#/volume] in Blood by Automated count 0.95 10*3/uL 1.2-4 .0 L [facility] Monocytes [#/volume] in Blood by Automated count 0.37 10*3/uL 0-0.8 [facility] Eosinophils [#/volume] in Blood by Automated count 0.09 10*3/uL 0-0.5 [facility] Basophils [#/volume] in Blood by Automated count 0.04 10*3/uL 0-0.2 [facility] Nucleated erythrocytes/100 leukocytes [Ratio] in Blood by Automated count 0 /100{WBCs} 0-0 [facility] ID Date Data Source [id number] 12/07/2020 07:47:08 AM [facility] Name Value Range Interpretation Code Description Data Sumaya rce(s) Supporting Document(s) Magnesium [Mass/volume] in Serum or Plasma 2.0 mg/dL 1.6-2.6 [facility] ID Date Data Source [id number] 12/07/2020 07:47:08 AM [facility] Name Value Range Interpretation Code Description Data Sumaya rce(s) Supporting Document(s) Phosphate [Mass/volume] in Serum or Plasma 4.2 mg/dL 2.5-4.5 [facility] ID Date Data Source [id number] 12/07/2020 07:47:08 AM [facility] Name Value Range Interpretation Code Description Data Sumaya rce(s) Supporting Document(s) Triglyceride [Mass/volume] in Serum or Plasma 192 mg/dL <150 H [facility] ID Date Data Source [id number] 12/07/2020 09:07:59 AM [facility] Name Value Range Interpretation Code Description Data Sumaya rce(s) Supporting Document(s) Albumin [Mass/volume] in Serum or Plasma by Bromocresol green (BCG) dye binding method 4.1 g/dL 3.5-5.2 [facility] Bilirubin.total [Mass/volume] in Serum or Plasma 0.4 mg/dL <1.2 [facility] Calcium [Mass/volume] in Serum or Plasma 9.0 mg/dL 8.6-10.0 [facility] Chloride [Moles/volume] in Serum or Plasma 107 mmol/L 98-107 [facility] Creatinine [Mass/volume] in Serum or Plasma 0.45 mg/dL 0.50-0.90 L [facility] Confirmed Glucose [Mass/volume] in Serum or Plasma 134 mg/dL 70-140 [facility] Alkaline phosphatase [Enzymatic activity/volume] in Serum or Plasma 70 U/L 35-104 [facility] Potassium [Moles/volume] in Serum or Plasma 4.3 mmol/L 3.4-5.1 [facility] Protein [Mass/volume] in Serum or Plasma 6.0 g/dL 6.4-8.3 L [facility] Sodium [Moles/volume] in Serum or Plasma 139 mmol/L 136-145 [facility] Aspartate aminotransferase [Enzymatic activity/volume] in Se rum or Plasma 9 U/L <32 [facility] Urea nitrogen [Mass/volume] in Serum or Plasma 14 mg/dL 6-20 [facility] Confirmed Osmolality of Serum or Plasma by calculation 290 mosm/kg 275-300 [facility] Creatinine/Urea nitrogen [Mass Ratio] in Serum or Plasma 31 [facility] Confirmed Bicarbonate [Moles/volume] in Serum 25 mmol/L 22-29 [facility] Alanine aminotransferase [Enzymatic activity/volume] in Seru m or Plasma 6 U/L <33 [facility] Anion gap 3 in Serum or Plasma 7 mmol/L 8-15 L [facility] Glomerular filtration rate/1.73 sq M pre dicted among non-blacks [Volume Rate/Area] in Serum or Plasma by Creatinine-based formula (MDRD) >6 0 [facility] Glomerular filtration rate/1.73 sq M pre dicted among blacks [Volume Rate/Area] in Serum or Plasma by Creatinine-based formula (MDRD) >60 [facility] ID Date Data Source [id number] 12/07/2020 06:53:39 AM [facility] Name Value Range Interpretation Code Description Data Sumaya rce(s) Supporting Document(s) Calcium.ionized [Moles/volume] in Arterial blood 1.20 mmol/L 1.13-1.3 2 [facility] ID Date Data Source [id number] 12/06/2020 11:17:04 PM [facility] Name Value Range Interpretation Code Description Data Sumaya rce(s) Supporting Document(s) [facility] [id number] [facility] [file] [id number]== ID Date Data Source [id number] 12/06/2020 09:27:52 PM [facility] Name Value Range Interpretation Code Description Data Sumaya e(s) Supporting Document(s) Leukocytes [#/volume] in Blood by Automated count 4.6 10*3/uL 4-10 [facility] Erythrocytes [#/volume] in Blood by Automated count 3.94 10*6/uL 4.1- 5.3 L [facility] Hemoglobin [Mass/volume] in Blood 11.6 g/dL 11.5-15.5 [facility] Hematocrit [Volume Fraction] of Blood by Automated count 36.6 % 3 6-45 [facility] Erythrocyte mean corpuscular volume [Entitic volume] by Auto mated count 93.0 fL 80-96 [facility] Confirmed Identity of Sample checked elise Jain RN Erythrocyte mean corpuscular hemoglobin [Entitic mass] by Automated count 29.4 pg 27-33 [facility] Erythrocyte mean corpuscular hemoglobin concentration [Mass/volume] by Automated count 31.7 g/dL 32.0-36.0 L [facility] Erythrocyte distribution width [Ratio] by Automated count 17.7 % 11.5-14.5 H [facility] Platelets [#/volume] in Blood by Automated count 296 10*3/uL 150-400 [facility] Differential cell count method - Blood [facility] Neutrophils/100 leukocytes in Blood by Automated count 68 % [facility] Lymphocytes/100 leukocytes in Blood by Automated count 23 % [facility] Monocytes/100 leukocytes in Blood by Automated count 7 % [facility] Eosinophils/100 leukocytes in Blood by Automated count 1 % [facility] Basophils/100 leukocytes in Blood by Automated count 1 % [facility] Neutrophils [#/volume] in Blood by Automated count 3.17 10*3/uL 1.8-7 .0 [facility] Lymphocytes [#/volume] in Blood by Automated count 1.07 10*3/uL 1.2-4 .0 L [facility] Monocytes [#/volume] in Blood by Automated count 0.31 10*3/uL 0-0.8 [facility] Eosinophils [#/volume] in Blood by Automated count 0.05 10*3/uL 0-0.5 [facility] Basophils [#/volume] in Blood by Automated count 0.03 10*3/uL 0-0.2 [facility] Nucleated erythrocytes/100 leukocytes [Ratio] in Blood by Automated count 0 /100{WBCs} 0-0 [facility] ID Date Data Source [id number] 12/06/2020 07:30:51 PM [facility] Name Value Range Interpretation Code Description Data Sumaya rce(s) Supporting Document(s) History and Physical [facility] ZRKYVl6fNzVHPkAw33/ZTCekEVDim9UiVWhuYWu8QAghSOFnV7PnPLK0dM6uZGT8OUrTGlWpZaFpCuX3 lbm [file] ICAgICAgICAgICAgICAgICAgICAgICAgICAgICAgIC AgICAgICAgICAgICAgICAgICAgICAgICAgICAgICAgICAgICAgDQogICAgICAgICAgICAgICAgICAgIC AgICAgICAgICAgICAgICAgICAgICAgICAgICAgICAgICAgICAgICAgICAgICAgICAgICAgICAgICAgIC AgICAgICAgICAgICAgICAgICAgDQogICAgICAgICAg ICAgICAgICAgICAgICAgICAgICAgICAgICAgICAgICAgICAgICAgICAgICAgICAgICAgICAgICAgICAg ICAgICAgICAgICAgICAgICAgICAgICAgICAgICAgDQogICAgICAgICAgICAgICAgICAgICAgICAgICAg ICAgICAgICAgICAgICAgICAgICAgICAgICAgICAgIC AgICAgICAgICAgICAgICAgICAgICAgICAgICAgICAgICAgICAgICAgDQogICAgICAgICAgICAgICAgIC AgICAgICAgICAgICAgICAgICAgICAgICAgICAgICAgICAgICAgICAgICAgICAgICAgICAgICAgICAgIC AgICAgICAgICAgICAgICAgICAgICAgDQogICAgICAg ICAgICAgICAgICAgICAgICAgICAgICAgICAgICAgICAgICAgICAgICAgICAgICAgICAgICAgICAgICAg ICAgICAgICAgICAgICAgICAgICAgICAgICAgICAgICAgDQogICAgICAgICAgICAgICAgICAgICAgICAg ICAgICAgICAgICAgICAgICAgICAgICAgICAgICAgIC AgICAgICAgICAgICAgICAgICAgICAgICAgICAgICAgICAgICAgICAgICAgDQogICAgICAgICAgICAgIC AgICAgICAgICAgICAgICAgICAgICAgICAgICAgICAgICAgICAgICAgICAgICAgICAgICAgICAgICAgIC AgICAgICAgICAgICAgICAgICAgICAgICAgDQogICAg ICAgICAgICAgICAgICAgICAgICAgICAgICAgICAgICAgICAgICAgICAgICAgICAgICAgICAgICAgICAg ICAgICAgICAgICAgICAgICAgICAgICAgICAgICAgICAgICAgDQogICAgICAgICAgICAgICAgICAgICAg ICAgICAgICAgICAgICAgICAgICAgICAgICAgICAgIC WfIWLyVSElAYRlJNAsRIEtBFOvTEOyBZXvQRCnVWFgWZJkMQMaGXBqOBQuFLCtQEj4P8gnSKYfOKPrGA 4vREf9Sz1+VWpQAyEfETJ3kpOlnD0GMI7jz0AvGHaiSGQzn5XgOHz4NC3KRFJkJAhqDE9WCVfmhj9MZR ZlNCAyrNMCe8xgUjPfKWU2YINmBjmmQU3FEYTmD4lw xvBoAJUiHOLFGUgoDAWQUXhoPVWTCRVgKDIyWpYvQaRyMSTaTAGnFOQMDWP5RCVjMiHsYTHhKLWkOA6M YJPtT736tpBxQL3PHi5RAiRhUK6zes0NRQZeFLZyWujOBxo7IOpoKS7NtAWyuSP3ZbSoMHOLWcVzL8zp c1SeSNGjQGHNGFrnSJ2Ir7EunRMsKYj+Hx3NPH3nb0 IfJTr7FlZeLL9gzm6AKFaJToSyG6SjwHnbMVagIZKjlNZXKN0plMGrJSicRYMzVVgxXV0kZZLuSx8nWC 1bZHGjRPW9ZcA0KGNPEC5TDOVzJNShzSSpKNJpMINOKL6NMOcyXKC1KGPearXkhSDnKCpkTV9EIQRhvv QgNDIgMCBSDQo+Yp6LVN1ca3FvKKb6IZEoNV2lux8V UFyOEpYcX6C4zITeX0L5MUpdGy7YOFQvHCFmMRPwNADUILpuYN0ZNX4borK8TS4OyCGfQTKcPMGzbLHx KCb6D29tqCPdYMfrNW8IYFW+Savannah+Uw7MXDCvMRGcJUPpMpJeCATJHkStU4ReF1JEw5PtZ1JnHL66sWqi rnPhVQttJZ3ZDG1zKAQpBEDAVP1WrIAqiU1mwsJ4Zd ZyXMXUOfAaG83gjWFhKKIvINHaNCJuHn6ERMTfJ4ZypaJcmMycfhMeCDJqUZAHKH7PBMgbtjDpuQInyQ upGX24vUcoUE3DQq0LFjIzPM2pch7GrYIcKv9KZRU1PB5QRSHgAHRwXLKhJXD3XXGdQlDwRUawJDQzAD BeVUO0EDMbNYVgHH2PXwSwMYJtZSP3WTHjHFYdYYFu lt6XOATcBLH3IdKnZNOiNXRlKDGxHRjaFTNuCUEyGKR9RIPaJBUvSX4AXgStPIGjOXMkSlpmUWPxGSNb uu1UHOYdSTBjOOLoGzBwIIUrOERbROfbTJIiYLO2KFPvMHWkQFRaSK2YCgPwECZtLBxzZwTrMNPaHXZu lh0VBJWgIVWcYMH8RVGuPROdJLVhEAqhWKFeEUKiOi d7PUHgHVOeYP0WLyQlSFTbGBP2TTIyVVSwIRGqbu1KWFZpQYVoVGafUVFfURQcFPFzGHipVGTnYYU8WJ R0YOKuFPSqVM7GZaRvBPEfFDgvUwFwXOYxMCQcqs8BJKBrXOGvVyK7QbDeIOCqIJDdFBrnPCXtMJBqHE olSPLpKTHiEF6DTuMbWRUoOiU4RUZdONHgVQVqet8Z GUCzUNVbJmJgQzZgNZMaXFDdLKrfYEVjAZF1JYBbEIRoBQOsJD3DKdCxCSPhZxU3AzLzDDIwOACyzt0W SLYaOZLaAeP7VsJlLQSiTPWuXMovXVZyESP9MRmmGZZbRPQnNL4AIxGmHJCwLhvtRsPxILGmTOJvhd9O XEMgASSrHOZfXAReEGXoRUEyKXgwCXLrNYC3MqK3PB EwHCRmZF0CUxXwBVUjUsl7IjMuHZHxHYHokh3AEIPxXWTiJYZ8YCMwMTPpSZOsZPofRYVdHCBuHVzvJP YjVPLnMD9DPeFyYKTzGjT0NkXoDPSiDJGgaj3GKFErXZMiNYwiGXIsIFBvPIZpVGvzXJWjGIUuYJM9AM WuJXFwYL2AElKnRWOeKzTeIFAzHIAvIBPeah0TFVPn VKH6HkN4JPJnEMXwFCMbWXimQLIiYCHlFSU8TCYpIIWkCD9SEgYhQAPjEHIoXmCjEIMnCUCzfu0FFYKt CSM1QNU9DMRxNKInFXIbKNutYHTzVYA7UOTiEQTfIRSfYS3EQyQbOAYuTNQkCPIvZDDmSHNshd8ALSCq INY8HPW6OzYqUKDcGQTiFGlwHPXaFES3CrTvUSPmQD HmBA4WMwCyLZAqFBDzFbKwSXFqLPVday9WNGGwAGH2MeG6IUOgYEUoGWFeWYkoRMHxYTW3ByL2XAIxVW GgWB7CHvOjBVVjAGi9WqImXTMbVSQibt1DlWThnDqdim9NHIhLMf7HwQzzADX0CSxrZj1hnRI8YPNdNR CGLx1RogKaAMVxQGFVBBaaVZDjXVG8XRwpSbK2JqRu TAEtOzZfGRP9IfHrGyAfDJL2PFOxWlX2ShB5ECG1PiG3BXQsATC3MWTyIwheLkAyPBC2Fnd9FTJ+IF0g DQo+Da8Pi3BsnaL5yzCrBIe6LRVyPT0BWUYEA3OXJk== ID Date Data Source [id number] 12/06/2020 10:23:59 AM [facility] Value Range Interpretation Code Description Data Sumaya rce(s) Supporting Document(s) Prothrombin time (PT) 13.3 s 12.5-14.9 [facility] INR in Platelet poor plasma by Coagulation assay 1.00 [facility] Routine intensity oral anticoagulation I NR is typically 2.0-3.0. Target INR must be clinically individualized. ID Date Data Source [id number] 12/06/2020 10:23:59 AM [facility] Value Range Interpretation Code Description Data Sumaya rce(s) Supporting Document(s) aPTT in Platelet poor plasma by Coagulation assay 32.5 s 24.0-33. 0 [facility] ID Date Data Source [id number] 12/06/2020 10:27:03 AM [facility] Value Range Interpretation Code Description Data Sumaya rce(s) Supporting Document(s) Creatinine [Mass/volume] in Serum or Plasma 0.69 mg/dL 0.50-0.90 [facility] Glomerular filtration rate/1.73 sq M pre dicted among non-blacks [Volume Rate/Area] in Serum or Plasma by Creatinine-based formula (MDRD) >6 0 [facility] Glomerular filtration rate/1.73 sq M pre dicted among blacks [Volume Rate/Area] in Serum or Plasma by Creatinine-based formula (MDRD) >60 [facility] ID Date Data Source [id number] 12/06/2020 10:43:26 AM [facility] Name Value Range Interpretation Code Description Data Sumaya rce(s) Supporting Document(s) Leukocytes [#/volume] in Blood by Automated count 6.8 10*3/uL 4-10 [facility] Erythrocytes [#/volume] in Blood by Automated count 4.20 10*6/uL 4.1- 5.3 [facility] Hemoglobin [Mass/volume] in Blood 11.6 g/dL 11.5-15.5 [facility] Hematocrit [Volume Fraction] of Blood by Automated count 35.9 % 3 6-45 L [facility] Erythrocyte mean corpuscular volume [Entitic volume] by Auto mated count 85.4 fL 80-96 [facility] Erythrocyte mean corpuscular hemoglobin [Entitic mass] by Automated count 27.6 pg 27-33 [facility] Erythrocyte mean corpuscular hemoglobin concentration [Mass/volume] by Automated count 32.3 g/dL 32.0-36.0 [facility] distribution width [Ratio] by Automated count 17.1 % 11.5-14.5 H [facility] Platelets [#/volume] in Blood by Automated count 323 10*3/uL 150-400 [facility] Differential cell count method - Blood [facility] Neutrophils/100 leukocytes in Blood by Automated count 76 % [facility] Lymphocytes/100 leukocytes in Blood by Automated count 14 % [facility] Monocytes/100 leukocytes in Blood by Automated count 7 % [facility] Neutrophils [#/volume] in Blood by Automated count 5.21 10*3/uL 1.8-7 .0 [facility] Lymphocytes [#/volume] in Blood by Automated count 0.95 10*3/uL 1.2-4 .0 L [facility] Monocytes [#/volume] in Blood by Automated count 0.44 10*3/uL 0-0.8 [facility] Variant lymphocytes/100 leukocytes in Blood by Manual count 2 % [facility] Myelocytes/100 leukocytes in Blood by Manual count 1 % [facility] Lymphocytes [#/volume] in Blood 0.13 10*3/uL 0 H [facility] Myelocytes [#/volume] in Blood by Manual count 0.06 10*3/uL 0-0 H [facility] Poikilocytosis [Presence] in Blood by Light microscopy [facility] ID Date Data Source [id number] 12/06/2020 10:53:12 AM [facility] Name Value Range Interpretation Code Description Data Sumaya rce(s) Supporting Document(s) Phosphate [Mass/volume] in Serum or Plasma 3.5 mg/dL 2.5-4.5 [facility] ID Date Data Source [id number] 12/06/2020 10:53:12 AM [facility] Value Range Interpretation Code Description Data Sumaya rce(s) Supporting Document(s) Magnesium [Mass/volume] in Serum or Plasma 2.1 mg/dL 1.6-2.6 [facility] ID Date Data Source [id number] 12/06/2020 07:39:15 AM [facility] Name Value Range Interpretation Code Description Data Sumaya rce(s) Supporting Document(s) [facility] FFPETq2lTlTBYuFk78/KIDdmWQPrl4XcIVemXVw6VLykHFDiU6EvUSK5fS1oDFY6KMhQWpFnVvCnDjT0 lbm [file] AgICAgICAgICAgICAgICAgICAgICAgICAgICAgICAg ICAgICAgICAgICAgICAgICAgICAgICAgICAgICAgICANCiAgICAgICAgICAgICAgICAgICAgICAgICAg ICAgICAgICAgICAgICAgICAgICAgICAgICAgICAgICAgICAgICAgICAgICAgICAgICAgICAgICAgICAg ICAgICAgICAgICAgICANCiAgICAgICAgICAgICAgIC AgICAgICAgICAgICAgICAgICAgICAgICAgICAgICAgICAgICAgICAgICAgICAgICAgICAgICAgICAgIC AgICAgICAgICAgICAgICAgICAgICAgICANCiAgICAgICAgICAgICAgICAgICAgICAgICAgICAgICAgIC AgICAgICAgICAgICAgICAgICAgICAgICAgICAgICAg ICAgICAgICAgICAgICAgICAgICAgICAgICAgICAgICAgICANCiAgICAgICAgICAgICAgICAgICAgICAg ICAgICAgICAgICAgICAgICAgICAgICAgICAgICAgICAgICAgICAgICAgICAgICAgICAgICAgICAgICAg ICAgICAgICAgICAgICAgICANCiAgICAgICAgICAgIC AgICAgICAgICAgICAgICAgICAgICAgICAgICAgICAgICAgICAgICAgICAgICAgICAgICAgICAgICAgIC AgICAgICAgICAgICAgICAgICAgICAgICAgICANCiAgICAgICAgICAgICAgICAgICAgICAgICAgICAgIC AgICAgICAgICAgICAgICAgICAgICAgICAgICAgICAg ICAgICAgICAgICAgICAgICAgICAgICAgICAgICAgICAgICAgICANCiAgICAgICAgICAgICAgICAgICAg ICAgICAgICAgICAgICAgICAgICAgICAgICAgICAgICAgICAgICAgICAgICAgICAgICAgICAgICAgICAg ICAgICAgICAgICAgICAgICAgICANCiAgICAgICAgIC AgICAgICAgICAgICAgICAgICAgICAgICAgICAgICAgICAgICAgICAgICAgICAgICAgICAgICAgICAgIC AgICAgICAgICAgICAgICAgICAgICAgICAgICAgICANCiAgICAgICAgICAgICAgICAgICAgICAgICAgIC AgICAgICAgICAgICAgICAgICAgICAgICAgICAgICAg ICAgICAgICAgICAgICAgICAgICAgICAgICAgICAgICAgICAgICAgICANCjw/qFNgX1srjQSgrrY4T7rj Sm7AHk2XAG6be4NbPMMuZMtdnfYwSriQQbAzRBRpVvgCXsv1QVznYQ6KoPVsL8EaQ3TdLGkdAB6QPZXi RXIohNLmZGDfBJDnLaC1ACZnLIoiUR8ZsQVtVRxeKY LqXUKuAuOzKUUqLLKrYEGxUYHnZDOPJUJxYZCgSjDuETDwXLNlPImvWEJHPJE8XOVyMyXrPFybJE4Eb2 OfxKA3YCt+Qg8BSN9qq9VhTBhcGRZvAH6xwe3CGSqUFgVrZ8JhmdM3CIYsCVWwAb9JWDWuACFnyXM8VF MsWZVTPgJgL2WdvK58GPYVQr5+DQplbmRvYmoNCjQw BKKbs8HnFEi9GN4JQXCgAMc0dJAfP11jf5IyzZMuFhecUP5ahX4nQlHEV1ubWmXzweXlJH7WVSU5RITk HYOdFrHfOSDyADebNvPVBNjQKwPpS8Fig3QeKhS9ANOrGmGdTRbhTUPmCvL7OI21dMqvQT8XSNViFAIi DN15BNA6QBCtLz7RAy0RDnZrZA9zln7DBEWzHQBjVv zDRhd1IMnpAP4GyUVzW1QavVRoz4gHPaSxN3SJFZM1CSTrUv2YZUApRnPxYRLxBYyuXL7vEIKjJIRVzH gcqjN0UK2BFK0jpfOkDD7JWuSgVa5uZr6IIyDtB3MdO7WlKAPaMYNHTHulYG1DJNllZY1lKC7Of8MHdE PyjV0xmo2WRIYmNKKqYxsfcz6KAgrnR2X8xQdtDQWi OwdiKYLEMBmpMA5ENXChDXB6GKJoSHNkPVDZIiJgX46aKN9CB0Uhn75sBhY3OCTpPxXmJDznHT66gIkb qoLpsSHnsEnzGB6WZl3+SJtdwcEkFonMCtxcEUGUDkDzRGWMIfDeJRJlUUCkLTRxUaU1LiOdQj8OAFEb LQSxJOHcUbVnDDBoVZOzSVyeBFGdCMJ1VAf6ZPHdAQ NfLP7GRuQaORDaPVT7GHgyZEYxMIDfxu7PBXCzCKSlNEV9WpBcWUBvGHUvZRvlESPaMYOcLOE5NQWvRF KpII3LFqUhWINdYUQtUfBbINRyHVBmtw4JQGXoPFSlJym0TQMrILPqKXBgEZtxWZQeOLG8BCT4NOMhJP FqKW9MMtFaLOTjKKPgVpunUZUoRVKqet3QFVMdNJWk JFY5VQXmFQOxAWRwJNwfVMMvYWC8TER8ICTvILFeLA8PYuRvFKGsMFSeJtCiIBRnCJEwjh5FZLJrWDKz EyZlACXeANDvGVLbADsrSFVhIRI7EDL6STFxAPIqSX8KEyLjAYOpBoQ7AkflLSBaGLYlmq2QPEWnCBKn AHl9JTCwBAPvKCPmQEooIJKjRGHcRNPnGUFyCNCiWR 4JVcYtAHJqWbJvQGEqNJXfAGNbsb5ISMCyJZHhTzL8UyGcWPBfYTHhZImpTHPeCDE3ZvO0OWOfQGDiYH 9NVvJfOGJcKtubAvyyAKEaFTRjew3INNAwNCGzUCSzRTDsREAcIMGhJEbgMRBmDXU0RiE8XAIiYDYvDT 3GGiOgRMYlAbm5VtfaYAOcDMCbbg6INJGjVIKjRCi6 WBOmRMUdXYNbVVtkMTZnIAQ2GZD4OPJtSJJiKR4ZFmTyVOOfGwD2OEelIUPaYJBixr6CZSVfFXLlNTOq LOOuMCOjJIHuJMsfSUSdZLFdBau2JACwOLUoWC9HUrBuEPDxUFV8CuUpXLCgIIBvdj6RITCkSYN6ZxG6 DGNbALByCGZsUOvhTQTzEBQiYwO0QEDzEWHoHK2JNz GbCCYzSKH6RTocTCMiIVZvws5EXODlQDC3TmP8RATvYPUlNKJcKDxwUZCwQAL1WlU9HALtGANhMB6RBb EuJFLjOFM4JOJpRVJpHYFzwo9ZLLTmONQ7PHs5TWXiJQBrJBJmTZftOZXwOUB5LBP5IDTmEIWyFN5CWd NxMXLxBQO1THYlHTVqUNYwdv1IWEKzVJN3Vdi5PpNt KWYePCNgALnyOZIvJQU3RFE2UHHoQHXuCA5MOiAuBLffHYRDNnl4CNqgQ0g0KJT0Pt2CS4Wnb1PiSECu PLBXHAfzCZ0lcvTaKLDjTg2UX3mEZoy8RENjHqJoQEIcYID8ImG2UMV7FcS9DTP1NKJoHTW3Gj1uCMEb SWEeHZPbZGI6YBbnGsa8RyJ3SBlcCsu0LNF5SbhuLu MtIU2HQy0HIdE3UMN6eSExPu8MWDluTBLUKfJhMO5ZJYw= ID Date Data Source [id number] 12/05/2020 08:03:00 PM EST [facility] 1 OrderSheet [facility] Department [address] [place] [address] Phone #: ext- [phone] 12/05/2020 20:02 Patient: LELAND DIAZ Sex: F : 1980 Age: 40yWEIGHT:72.5 kg (S) HEIGHT:67 inches (S) BMI:25.1ALLERGIES: Levaquin, NSAID, Sulfa AntibioticsCHIEF COMPLAINT: weakness, nausea, abdominal painDIAGNOSIS: Abdominal painLAB ORDERSOrder Description Priority Entered Acknowledged InitialedCBC w Diff STAT 20:23 12/05/2020 20:42 Bart Reddy Riccardo Wanda M.D.;CMP STAT 20:23 12/05/2020 20:42 Bart Reddy Riccardo Wanda M.D.;Lipase STAT 20:23 12/05/2020 20:42 Bart Reddy Riccardo Wanda M.D.;Lactic Acid STAT 20:23 12/05/2020 20:42 Bart Reddy Riccardo Wanda M.D.;PT/PTT STAT 20:23 12/05/2020 20:42 Bart Reddy Riccardo Wanda M.D.;Type and Screen STAT 20:24 12/05/2020 20:42 ReddyBart rodarte Riccardo Wanda M.D.;COVID-19 CAH (Not STAT 20:46 12/05/2020 20:55 Thomason,Symptomatic as Sanford Cardenas R.N.Defined by CDCJoann Del Rio;(12/05/2020) (NotFirst Test) (NotHospitalized) (Not) (NotResident inCongregate CareSetting) (NotEmployed inHealthcare Setting)DIAGNOSTIC STUDY ORDERS 2 OrderSheet [facility] Department [address] [place] [address] Phone #: ext- [phone] 12/05/2020 20:02 Patient: LELAND DIAZ Sex: F : 1980 Age: 40yOrder Description Priority Entered Acknowledged InitialedMEDICATION/IV/DRIP/FLUID ORDERSOrder Description Priority Entered Acknowledged InitialedNS IV 500 mL 20:24 12/05/2020 20:44 Paddy,Bolus: : Bolus 500 Turrin, Sanford Moises R.N.mL, then 150 mL/hr M.D.;(X1)Zofran 4 mg IVP X 1 20:25 12/05/2020 20:44 Paddy,dose: 4 mg (NOW Turrin, Sanford Moises R.N.x1) M.D.; Reason for ordering with alerts: Clinical consideration given -- 20:25 12/05/2020 Sanford Cardenas M.D.Pepcid IVPB 20 20:25 12/05/2020 20:52 Paddy,mg/50mL (NOW x1, Turrin, Sanford Moises R.N.Infuse over 30 M.D.;minutes.) Reason for ordering with alerts: Clinical consideration given -- 20:25 12/05/2020 Sanford Cardenas M.D.Morphine IVP 4 mg 20:25 12/05/2020 20:49 Paddy,(HIGH ALERT Bart, Sanford Moises R.N.MEDICATION) M.Gloria; Reason for ordering with alerts: Clinical consideration given -- 20:25 12/05/2020 Sanford Cardenas M.D.Ofirmev IV 1000 mg 21:28 12/05/2020 21:30 Paddy(NOW x1, Infuse Turrin, Sanford Moises R.N.over 15 minutes) Yina.D.;Benadryl IVP 25 mg 21:34 12/05/2020 21:34 Paddy(NOW) Moises Thomason R.N., R.N.; Verbal order per; Sanford Cardenas M.D.Dilaudid IVP 1 mg 23:29 12/05/2020 Ack'd: 23:29 Tamara 23:37 Tamara Jo(HIGH ALERT Sanford Cardenas R.N., R.N.MEDICATION) Eliane;GENERAL ORDERSOrder Description Priority Entered Acknowledged InitialedNPO 20:23 12/05/2020 20:42 Bart Reddy Riccardo Wanda M.D.;Saline Lock 20:23 12/05/2020 20:41 Bart Thomason Riccardo Rachel R.N. 3 OrderSheet [facility] [address] [place] [address] Phone #: ext- [phone] 12/05/2020 20:02 Patient: LELAND DIAZ Sex: F : 1980 Age: 40y M.D.;EKG 20:26 12/05/2020 20:52 Bart Thomason Riccardo Rachel R.N. M.D.;Automation Test Developer 20:26 12/05/2020 20:42 Barry,(continuous) Sanford Cardenas M.D.;Transfer: 21:54 12/05/2020 21:55 Bart Thomason Riccardo Rachel R.N. M.D.;Consult - 21:54 12/05/2020 21:55 Paddy,Hospitalist Sanford Cardenas R.N., M.D.;[Electronically signed by Tamara White R.N. (23:51 12/05/2020)][Electronically signed by Sanford Cardenas M.D. (06:41 12/06/2020)][Electronically locked by Tamara White R.N. (23:51 12/05/2020)] Name Value Range Interpretation Code Description Data Sumaya rce(s) Supporting Document(s) ID Date Data Source [id number] 12/05/2020 08:03:00 PM EST [facility] 1 Medication Reconciliation Report [facility] Department [address] [place] [address] Phone #: ext- [phone] 12/05/2020 20:02 Patient: LELAND DIAZ Sex: F : 1980 Age: 40yWeight: 72.5 kgHeight/Length: 67 in.BMI: 25.1ALLERGIES: Levaquin, NSAID, Sulfa AntibioticsThe patient's Home Medications are listed below:THE FOLLOWING MEDICATIONS NEED TO BE RECONCILED: Ambien Oral 7.5, daily, via J tube, prn,at bedtime Benadryl IV 50mg QDAY for nausea, 2x a day Carafate Oral 1 gm, q4h, via J tube Creon Oral (8903-5236 unit) 1 capsule, 4x a day, J [...] Department:NS [IV] IV Fluids bolus 0, then 150 mL/hr, administered: 20:44 12/05/2020 2 Medication Reconciliation Report [facility] [address] [place] [address] Phone #: ext- [phone] 12/05/2020 20:02 Patient: LELAND DIAZ Sex: F : 1980 Age: 40yZofran [IVP] IVP 4 mg, administered: 20:44 12/05/2020Morphine [IVP] IVP 4 mg, administered: 20:49 1Pepcid [IVPB] IVPB bolus 0, then 20 mg 100 mL/hr, administered: 20:52 12/05/2020ofirmev IV bolus 0, then 1000 mg, administered: 21:30 1Benadryl [IVP] IVP 25 mg, administered: 21:34 1Dilaudid [IVP] IVP 1 mg, administered: 23:32 12/05/2020The following Medications were prescribed to the patient:None. Name Value Range Interpretation Code Description Data Sumaya rce(s) Supporting Document(s) ID Date Data Source [id number] 12/05/2020 08:03:00 PM EST [facility] 1 Medication Administration Record [facility] [address] [place] [address] Phone #: ext- [phone] 12/05/2020 20:02 Patient: LELAND DIAZ Sex: F : 1980 Age: 40yWeight: 72.5 kgHeight/Length: 67 inBMI: 25.1ALLERGIES: Levaquin, NSAID, Sulfa Antibiotics Date/Time Medication Administered Medication OrderedStart NS [IV] NS IV 500 mL Bolus: : Bolus 80302:44 12/05/2020 Dose: IV Fluids mL, then 150 mL/hr (X1)Moises Thomason R.N. Rate: 150 mL/hr---- Dispensed: 1000 mL bagContinued Upon Disposition Site: #1 PICC23:43 12/05/2020Tamara Jiménez R.N.Given ZOFRAN [IVP] (ONDANSETRON HCL) Zofran 4 mg IVP X 1 dose: 4 mg20:44 12/05/2020 Dose: 4 mg IVP (NOW x1)Moises Thomsaon R.N. Site: #1 PICCStart PEPCID [IVPB] Pepcid IVPB 20 mg/50mL (NOW20:52 12/05/2020 Dose: 20 mg IVPB x1, Infuse over 30 minutes.)Moises Thomason R.N. Rate: 100 mL/hr over 30 minute(s)---- Dispensed: 50 mL bagStop Site: #1 PICC21:30 12/05/2020Moises Thomason R.N.Given MORPHINE [IVP] Morphine IVP 4 mg (HIGH ALERT20:49 12/05/2020 Dose: 4 mg IVP MEDICATION)Moises Thomason R.N. Site: #1 PICCStart ofirmev * Ofirmev IV 1000 mg (NOW x1,21:30 12/05/2020 Dose: 1000 mg * IV Infuse over 15 minutes)Moises Thomason R.N.----Stop22:14 12/05/2020Moises Thomason R.N.Given BENADRYL [IVP] (DIPHENHYDRAMINE Benadryl IVP 25 mg (NOW)21:34 12/05/2020 HCL)Moises Thomason R.N. Dose: 25 mg IVP Site: #1 PICCGiven DILAUDID [IVP] (HYDROMORPHONE Dilaudid IVP 1 mg (HIGH ALERT23:32 12/05/2020 HCL) MEDICATION)Tamara Jiménez R.N. Dose: 1 mg IVP Site: #1 Name Value Range Interpretation Code Description Data [facility](s) Supporting Document(s) ID Date Data Source [id number] 12/05/2020 08:03:00 PM [facility] 1 General Instructions [facility] [address] [place] [address] Phone #: ext [phone] 12/05/2020 20:02 Patient: LELAND DIAZ Sex: F : 1980 Age: 40yChronic epigastric abdominal pain.S/P recent G-tube Insertion w bleeding in tube;Upper GI Bleed.(Electronically signed by Sanford Cardenas M.D. 12/06/2020 06:41) Name Value Range Interpretation Code Description Data [facility](s) Supporting Document(s) ID Date Data Source [id number] 12/05/2020 08:03:00 PM [facility] 1 Clinical Report - Nurses [facility] [address] [place] [address] Phone #: ext [phone] 12/05/2020 20:02 Patient: LELAND DIAZ Sex: F : 1980 Age: 40yTRIAGEArrived by private vehicle. Historian: patient. Accompanied by family.Acuity: LEVEL 3.Chief Complaint: WEAKNESS, NAUSEA and ABDOMINAL PAIN (bleeding to g tube site).Alert.This started last night. ( PT had g tube placed 2 weeks ago and was having no post op complications.Last night, she began having abdominal pain and this morning around 11 am she began having a largeamount of bloody output in a drainage bag attached to the g tube. She has also vomited blood clots. Shealso reports diarrhea with occasional blood in stool. She has not contacted her surgeon.).Treatment [employer]:None.SEPSIS SCREEN: SIRS SCREEN NEGATIVE: heart rate greater than 90. SEPSIS SCREEN NEGATIVE.No rani pected or confirmed signs of infection present.LIDIA COMA SCORE: 15- eyes open- spontaneous (4); best verbal response- oriented (5); bestmotor response- obeys commands (6). --20:13 12/05/20 Moises Thomason R.N.20:03 12/05/20. BP: 128/81. MAP: 96. HR: 120. RR: 20. O2 saturation: 100%. Temp: 97.2 F. Pain levelnow: 04/29. --20:13 12/05/20 Moises Thomason R.N.Weight: 72.5 kg stated. Height/Length: 67 inches Per Patient. BMI: 25.1. --20:10 12/05/20 Moises Thomason R.N.MedicationsAmbien Oral 7.5, daily as needed, at bedtime, via J tube. Benadryl IV 50mg QDAY for nausea, 2x a day. Carafate Oral 1 gm, q4h, via J tube. Creon Oral (Capsule Delayed Release Particles [id number] unit) 1 capsule, 4x a day, J tube. FLUoxetine HCl Oral 20 mg, daily, via J tube. Lovenox Subcutaneous (Solution 80 mg/0.8mL) 70 mg, 2x a day. Ondansetron HCl Injection 8 mg IVP, q8h as needed. oxyCODONE HCl Oral 100/5 ml; 1ML, 4x a day as needed, via J tube. Protonix Intravenous (Solution Reconstituted 40 mg), 2x a day. TPN Electrolytes Intravenous. --20:10 12/05/20 Moises Thomason R.N. Tylenol Oral, as needed. --20:10 12/05/20 Moises Tohmason R.N. 2 Clinical Report - Nurses [facility] Emergency Department [address] [place] [address] Phone #: ext- [phone] 12/05/2020 20:02 Patient: LELAND DIAZ [facility]#: [id number] Sex: F : 1980 Age: 40y Allergies Levaquin.(hives) NSAID. Sulfa Antibiotics.(Anaphylaxis) --20:10 12/05/20 Moises Thomason R.N. ADDITIONAL SURGERIES: G tube placement. --20:10 12/05/20 Moises Thomason R.N. History PAST MEDICAL HX: Denies current . SOCIAL HX: Never smoker. No alcohol use or drug use. She was offered HIV testing but declined and hepatitis C testing but declined. She has not traveled outside the [place] 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 The patient was not exposed to C-diff, VRE, CRE or Coronavirus. SELF HARM ASSESSMENT: Self harm assessment was [...] to hurt yourself before today?". ABUSE ASSESSMENT: No report of abuse. NUTRITIONAL RISK ASSESSMENT: The nutritional risk assessment revealed no deficiencies. FUNCTIONAL ASSESSMENT: Functional assessment: no impairments noted. LEARNING NEEDS ASSESSMENT: The learning needs assessment revealed no barriers. FALL RISK ASSESSMENT: Fall risk assessment completed. No risk factors identified. SKIN INTEGRITY ASSESSMENT: Sk in integrity risk assessment completed. No skin integrity risk identified. --20:13 12/05/20 Moises Thomason R.N. Interventions Identification band on patient. To treatment room. --20:13 12/05/20 Moises Thomason R.N.PHYSICAL ASSESSMENTAmbulatory to room.GENERAL / NEURO / PSYCH: The patient is confused and appears uncomfortable. She has weakness.HEENT: Pupils equal, round and reactive to light. No facial asymmetry noted. Mucous membranes arepink.RESPIRATORY: Respirations not labored. Chest nontender. Breath sounds within normal limits. 3 Clinical Report - Nurses [facility] Emergency Department [address] [place] [address] Phone #: ext- [phone] 12/05/2020 20:02 Patient: LELAND DIAZ Sex: F : 1980 Age: 40y CVS: Capillary refill less than 2 seconds. Pulses within normal limits. GI / : ( g tube to drainage bag with moderate amount of bloody drainage). Abdominal tenderness in the right side of the abdomen. SKIN: Skin intact. Skin is warm and dry. Normal skin turgor. --20:54 12/05/20 Moises Thomason R.N.NURSING PROGRESS NOTESMonitoring of patient in place. Patient gowned. Reassurance given. Two patient identifiers checked.Bed placed in lowest position. Patient ready for evaluation- ED physician notified. --20:13 12/05/20Moises Thomason R.N. 20:44 12/05/2020 Site #1 started via IV using a PICC line, with aseptic technique and good blood return. --20:44 12/05/20 Moises Thomason R.N. 20:44 12/05/2020 Started bag #1 1000 mL IV Fluids NS; at 150 mL/hr via site #1 via IV pump. Allergies verified and confirmed 5 rights. IV patency established. IV site checked: no pain, redness, or swelling. IV flushed thoroughly pre- and post-medication administration. Information reviewed with patient including reason for taking this medication. Verbalizes understanding. --20:44 12/05/20 Moises Thomason R.N. 20:44 12/05/2020 Zofran (Ondansetron HCl) IVP 4 mg given over 3 minute(s) via site #1. Allergies verified and confirmed 5 rights. IV patency established. IV site checked: no pain, redness, or swelling. IV flushed thoroughly pre- and post-medication administration. IVP given by RN. Information reviewed with patient including reason for taking this medication. Verbalizes understanding. --20:44 12/05/20 Moises Thomason R.N. 20:49 12/05/2020 Morphine IVP 4 mg given over 3 minute(s) via site #1. Allergies verified and confirmed 5 rights. IV patency established. IV site checked: no pain, redness, or swelling. IV flushed thoroughly pre- and post-medication administration. IVP given by RN. Information reviewed with patient including reason for taking this medication and sedative warning (dil). --20:49 12/05/20 Moises Thomason R.N. 20:52 12/05/19 21 Started 20 mg of Pepcid IVPB in bag #1 50 mL; at 100 mL/hr over 30 minute(s) via site #1. via IV pump. Allergies verified and confirmed 5 rights. IV patency established. IV site checked: no pain, redness, or swelling. IV flushed thoroughly pre- and post-medication administration. Information reviewed with patient including reason for taking this medication. Verbalizes understanding. --20:52 12/05/20 Moises Thomason R.N. EKG time: (20:47 12/05/2020). EKG was performed by a nurse and shown to the ED physician. --20:58 12/05/20 Moises Thomason R.N. 21:17 12/05/20. BP: 140/91. MAP: 107. HR: 104. RR: 20. O2 saturation: 99%. Pain level now: 05/30. --21:19 12/05/20 Moises Thomason R.N. Overall patient status is the same. --21:19 12/05/20 Moises Thomason R.N. 21:30 12/05/2020 ofirmev * IV 1000 mg given over 15 minutes --21:30 12/05/20 Moises Thomason R.N. 4 Clinical Report - Nurses [facility] Emergency Department [address] [place] [address] Phone #: ext- [phone] 12/05/2020 20:02 Patient: LELAND DIAZ Sex: F : 1980 Age: 40y 21:30 12/05/2020 Pepcid IVPB via IV site #1 Discontinued: bag #1 completed. Total amount infused: 50 mL. IV patency established. IV site checked: no pain, redness, or swelling. IV flushed thoroughly. --21:30 12/05/20 Moises Thomason R.N. 21:32 12/05/20. BP: 122/98. MAP: 106. HR: 101. RR: 18. O2 saturation: 100%. Pain level now: 05/30. --21:32 12/05/20 Moises Thomason R.N. 21:34 12/05/2020 Benadryl (diphenhydrAMINE HCl) IVP 25 mg given over 3 minute(s) via site #1. Allergies verified and confirmed 5 rights. IV patency established. IV site checked: no pain, redness, or swelling. IV flushed thoroughly pre- and post- medication administration. IVP given by RN. Information reviewed with patient including reason for taking this medication and sedative warning. Verbalizes understanding. --21:34 12/05/20 Moises Thomason R.N. 21:45 12/05/20. Reassessment after medication administered. Pain still present. (Dr. Cardenas notified of pain level.). --22:15 12/05/20 Moises Thomason R.N. 22:14 12/05/2020 Ofirmev IV Discontinued: bag #1 completed. Total amount infused: 100 mL. IV patency established. IV site checked: no pain, redness, or swelling. IV flushed thoroughly. --22:14 12/05/20 Moises Thomason R.N. 22:27 12/05/20. ( [facility] unable to transport pt. Awaiting call back from [facility] (david)). --22:37 12/05/20 Tamara Jiménez R.N. 22:37 12/05/20. BP: 137/98. MAP: 111. HR: 106. RR: 18. O2 saturation: 98%. --22:38 12/05/20 Tamara Jiménez R.N. ( ambulated to BR and back without difficulty. Placed back on monitoring and encouraged to rest.). --22:38 12/05/20 Tamara Jiménez R.N. 23:32 12/05/2020 Dilaudid (HYDROmorphone HCl) IVP 1 mg given over 5 minute(s) via site #1. Allergies verified and confirmed 5 rights. IV patency established. IV site checked: no pain, redness, or swelling. IV flushed thoroughly pre- and post-medication administration. IVP given by RN. Information reviewed with patient including reason for taking this medication and sedative warning. Verbalizes understanding. --23:37 12/05/20 Tamara Jiménez R.N. 23:43 12/05/2020 IV Fluids NS via IV site #1 Continued: at the rate of 150 mL/hr. 150 mL remaining bag #1. IV patency established. IV site checked: no pain, redness, or swelling. IV flushed thoroughly. (New bag of IV NS provided to EMS for transport.). --23:48 12/05/20 Tamara Jiménez R.N.DISPOSITION / DISCHARGE Transferred to [facility]. Report was given to a nurse via a phone call. Report included patient's care, condition, vital signs, labs, medications and IV's. All questions were answered. Report was acknowledged and care was transferred. (STACIE Novoa). Bed obtained and ready. ( Waiting for 5 Clinical Report - Nurses [facility] Emergency Department [address] [place] [address] Phone #: [phone] 12/05/2020 20:02 Patient: LELAND DIAZ Sex: F : 1980 Age: 40y ambulance). Patient's personal items include: shirt, pants and wallet; items were given to the patient and transported with the patient. --22:13 12/05/20 Moises Thomason R.N. 23:04 12/05/2020 Site #[address] upon transfer. --23:04 12/05/20 Tamara Jiménez R.N. Condition at departure: stable. --23:04 12/05/20 Tamara Jiménez R.N. ( [facility] on route to transport pt.). --23:04 12/05/20 Tamara Jiménez R.N. Departure time: 23:46 12/05/2020. Transported via ambulance by news department intern with monitor and IV ([facility]). Patient's personal items; items were transported with the patient. --23:48 12/05/20 Tamara Jiménez R.N. 23:30 12/05/20. BP: 116/77. MAP: 90. HR: 103. RR: 17. O2 saturation: 100%. Temp: 98.5 F. Pain level now: 03/30. --23:48 12/05/20 Tamara Jiménez R.N.Locked/Released at 12/05/2020 23:51 by Tamara Jiménez R.N. Name Value Range Interpretation Code Description Data Sumaya rce(s) Supporting Document(s) ID Date Data Source [id number] 0001 12/05/2020 08:03:00 PM EST [facility] 1 Clinical Report - Physicians/Mid Levels [facility] Emergency Department [address] [place] [address] Phone #: ext- [phone] 12/05/2020 20:02 Patient: LELAND DIAZ Sex: F : 1980 Age: 40y Time Seen: 20:13 12/05/2020; initial patient contact. Arrived- By private vehicle. Historian- patient. Disposition decision: 21:54 12/05/2020.HISTORY OF PRESENT ILLNESS Chief Complaint: bleeding from G-tube. This started today this morning 11 am, has been moderate and is still present. It was gradual in onset and has been constant. The patient has had nausea and mild diarrhea but not had dark stools or rectal bleeding. No vomiting. She has h ad moderate, intermittent abdominal pain (since last night). The pain is described as located in the upper abdomen and epigastrium and associated with nausea. (pt has had numerous abdominal surgeries (see P.Mx) w long-lasting J- tube and G-tube; Pt had G-tube replaced at [facility] [address] Dan w/o complications; Epigastric pain started last night w nausea; Bleeding from G-tube started this am at 11 am). No known contact with a sick individual. Similar symptoms previously. Patient has had similar symptoms occasionally. Recent medical care: The patient was seen recently at another facility and hospitalized.REVIEW OF SYSTEMSThe patient has had weakness, and she has had dizziness. No fainting episodes, fever, blurred vision,sore throat or epistaxis. No cough, chest pain, hematuria, skin rash or enlarged lymph nodes. No chillsor joint pain. All other systems reviewed and are negative.PAST HISTORYSee nurses notes. Problems: Protein S deficiency disease. Anemia. UTI - Urinary Tract Infection. Back Pain. Malabsorption syndrome. Hypokalemia. Pulmonary Embolism. Sinus Tachycardia. Gastric ulcer. Gastroparesis. GI Bleeding. Additional Surgeries: 2 Clinical Report - Physicians/Mid Levels [facility] Emergency Department [address] [place] [address] Phone #: ext- [phone] 12/05/2020 20:02 [id number] Sex[facility] F : 1980 Age: 40y Bowel resection. Bowel Resection [2016]. Cholecystectomy. G tube placement. Gastric bypass. Gastric bypass reversal [08/2019]. GI bleed clipping. Hysterectomy. J-Tube placement. [place] [10/2017]. Portacath left chest. Nadege-en-Y gastrojejunostomy [2009]. Spinal fusion. Spinal fusion. Medications: Tylenol Oral, as needed. Ambien Oral 7.5, daily as needed, at bedtime, via J tube. Benadryl IV 50mg QDAY for nausea, 2x a day. Carafate Oral 1 gm, q4h, via J tube. Creon Oral (Capsule Delayed Release Particles [id number] unit) 1 capsule, 4x a day, J tube. FLUoxetine HCl Oral 20 mg, daily, via J tube. Lovenox Subcutaneous (Solution 80 mg/0.8mL) 70 mg, 2x a day. Ondansetron HCl Injection 8 mg IVP, q8h as needed. oxyCODONE HCl Oral 100/5 ml; 1ML, 4x a day as needed, via J tube. Protonix Intravenous (Solution Reconstituted 40 mg), 2x a day. TPN Electrolytes Intravenous. Allergies: Levaquin.(hives) NSAID. Sulfa Antibiotics.(Anaphylaxis).SOCIAL HISTORYNever smoker. No alcohol use or drug use.ADDITIONAL NOTESThe nursing notes have been reviewed with agreement regarding the chief complaint, HPI, ROS, PMH andpatient medications and allergies.PHYSICAL EXAMVital Signs: 12/05/2020 20:03 BP: 128/81. MAP: 96. HR: 120. RR: 20. O2 saturation: 100%. Temp: 97.2F. Pain level now: 7/10. Have been reviewed. Oxygen saturation normal.Appearance: Alert. Oriented X3. Anxious. Appears to be in pain.Eyes: Pupils equal, round and reactive to light. Eyes normal inspection. 3 Clinical Report - Physicians/Mid Levels [facility] Emergency Department [address] [place] [address] Phone #: ext- [phone] 12/05/2020 20:02 Patient: LELAND DIAZ Sex: F : 1980 Age: 40y ENT: Nose normal. Pharynx normal. Neck: Normal inspection. Neck supple. CVS: Tachycardia. Normal heart rhythm. Heart sounds normal. Pulses normal. Respiratory: No respiratory distress. Painless inspiration. Breath sounds normal. Abdomen: Soft. Mild tenderness in the upper abdomen and epigastric area. No guarding or rebound tenderness. Bowel sounds normal. No organomegaly. No mass. G-tube and J-tube present. (blood coming out G-tube, mild). Back: Normal inspection. Skin: Skin warm and dry. Normal skin color. No rash. Normal skin turgor. Extremities: Extremities exhibit normal ROM. No lower extremity edema. Neuro: Oriented X 3. No motor deficit. No sensory deficit.LABS, X-RAYS, AND EKGEKG: No acute process. No acute ischemia. Normal sinus rhythm. Rate: 94/min. Normal ST and [place]. EKG unchanged when compared with prior EKG. (10-17-20). The study has been interpretedcontemporaneously by me. The EKG appears to be a good tracing. Interpretation time: 20:.Laboratory Tests: Laboratory tests have been ordered, with results reviewed and considered in themedical decision making process. COVID-19 CAH: (LUISANA: 12/05/2020 21:00) ( MsgRcvd 12/05/2020 21:24) Final results Test Result Flag Units (Reference) COVID-19 NOT DETECTED COVID-19 REENTER NOT DETECTED { PROCEDURAL CONTROL VALID KIT LOT # _[id number] 12/05/20.MARICARMEN. KIT EXP DATE _01-63-85 12/05/20.2123.MARICARMEN. NORMAL RANGE IS NOT DETECTEDNEGATIVE RESULTS SHOULD BE TREATED PRESUMPTIVE AND, IF INCONSISTENT WITHCLINICAL SIGNS AND SYMPTOMS OR NECESSARY FOR PATIENT MANAGEMENT, SHOULD BETESTED WITH DIFFERENT AUTHORIZED OR CLEARED MOLECULAR TESTS. NEGATIVE RESULTSDO NOT PRECLUDE SARS-CoV-2 INFECTION AND SHOULD NOT BE USED THE SOLE BASISFOR PATIENT MANAGEMENT DECISIONS. CBC w Diff: (LUISANA: 12/05/2020 20:40) ( MsgRcvd 12/05/2020 21:21) Final results Test Result Flag Units (Reference) CBC W/AUTOMATED DIFF COMPLETE BLOOD COUNT WBC 7.2 10/uL (4.2 - 11.0) RBC 4.33 10/uL (4.20 - 5.40) HEMOGLOBIN 12.1 g/dL (12.0 - 16.0) HEMATOCRIT 37.1 % (37.0 - 47.0) MCV 85.7 fL (81.0 - 101) MCH 27.9 pg (27.0 - 34.0) MCHC 32.6 g/dL (31.0 - 36.0) RDW 15.6 H % (11.5 - 14.5) PLATELETS 378 10/uL (150 - 450) MPV 9.7 fL (7.4 - 10.4) NEUT 77.3 % (37.0 - 80.0) LYMPH 13.4 L % (25.0 - 40.0) MONO 6.4 % (3.0 - 8.0) EOS 2.2 % (0.0 - 7.0) BASO 0.4 % (0.0 - 2.5) %IG 0.3 H % (0.0 - 0.0) 4 Clinical Report - Physicians/Mid Levels [facility] Emergency Department [address] [place] [address] Phone #: ext- [phone] 12/05/2020 20:02 Patient: LELAND DIAZ Sex: F : 1980 Age: 40y %NRBC 0.0 % (0.0 - 0.0) #NEUT 5.52 10/uL (2.00 - 6.90) #LYMPH 0.96 10/uL (0.60 - 3.40) #MONO 0.46 10/uL (0.00 - 0.90) #EOS 0.16 10/uL (0.00 - 0.70) #BASO 0.03 10/uL (0.00 - 0.20) #IG 0.02 10/uL (0.00 - 0.10) #NRBC 0.00 10/uL (0.00 - 0.00) MANUAL DIFF SEE BELOW SEGS 76 % (37 - 80) BAND 2 % (0 - 5) %LYMPH 17 L % (25 - 40) %MONO 5 % (3 - 8) RBC MORPH MORPH IS NORMALCMP: (LUISANA: 12/05/2020 20:40) ( MsgRcvd 12/05/2020 21:22) Final results Test Result Flag Units (Reference) COMPREHENSIVE METABOLIC PANEL COMPREHENSIVE METABOLIC PANEL SODIUM 139 mEq/L (134 - 153) POTASSIUM 3.6 mEq/L (3.6 - 5.0) CHLORIDE 104 mEq/L (98 - 107) CO2 24 MEQ/L (22 - 30) GLUCOSE 128 H MG/DL (70 - 99) BUN 9 MG/DL (7 - 21) CREATININE 0.5 L MG/DL (0.7 - 1.5) BUN/CREAT 18 (8 - 27) TOTAL PROTEIN 7.3 G/DL (6.3 - 8.2) ALBUMIN 4.7 G/DL (3 .9 - 5.0) GLOBULIN 2.6 GM/DL (2.4 - 3.2) A/G RATIO 1.8 (0.8 - 2.0) CALCIUM 9.7 MG/DL (8.4 - 10.2) TOTAL BILI <0.7 MG/DL (0.2 - 1.3) ALKALINE PHOS 83 U/L (38 - 126) SGOT/AST 11 U/L (5 - 40) SGPT/ALT 9 U/L (7 - 56) ANION GAP 11.0 mmol/L (8.0 - 16.0) AGE 40 yrs NON-AA GFR >60 mL/min AFR AMER GFR >60 mL/min Male GFR Interprentation 20-49 yrs >60 mL/min Ryvrxa63-04 yrs >56 mL/min Normal 60-69 yrs >49 mL/min Normal 70-79yrs>42 mL/min Normal 80 and above >35 mL/min Normal Female GFRInterpretation 20-39 yrs >60 mL/min Normal 40-49 yrs >58 mL/minNormal 50- 59 yrs >51 mL/min Normal 60-69 yrs >45 mL/min Jwoena91-75 yrs >39 mL/min Normal 80 and above >32 mL/min NormalLipase: (LUISANA: 12/05/2020 20:40) ( [facility] [place] 12[facility] 21:22) Final results Test Result Flag Units (Reference) LIPASE 54 U/L (13 - 60)Lactic Acid: (LUISANA: 12/05/2020 20:40) ( MsgRcvd 12/05/2020 20:52) Final results Test Result Flag Units (Reference) LACTIC ACID 2.3 H MMOL/L (0.2 - 2.2)PT/PTT: (LUISANA: 12/05/2020 20:40) ( IagRcvd 12/05/2020 21:01) Final results 5 Clinical Report - Physicians/Mid Levels [facility] Emergency Department [address] [place] [address] Phone #: ext- [phone] 12/05/2020 20:02 Patient: LELAND DIAZ Sex: F : 1980 Age: 40y Test Result Flag Units (Reference) PROTIME 13.1 SECONDS (11.0 - 15.5) INR 0.94 (0.93 - 1.23) PTT 54.4 H SECONDS (24.8 - 36.7) \\BLDo\\INR INTERPRETATION\\BLDx\\ Therapeutic range for Coumadin and related oral anticoagulants. -International Normalized Ratio (INR): 2.0 - 3.0 for Venous Thrombosis, Pulmonary Embolus, Tissue heart valves, Acute ND Atrial Fibrillation, Valvular heart disease and recurrent Systemic Embolism. -International Normalized Ratio (INR): 2.5 - 3.5 for Mechanical Prosthetic valve..PROGRESS AND PROCEDURESCourse of Care: 20:16 12/05/20. Data Detail Level: Printer-Friendly View Extended ViewConfidential Drug Utilization ReportSearch Terms: leland diaz, 1980Search Date: 12/05/2020 20:16:05 PMThe Drug Utilization Report below displays all of the controlled substance prescriptions, if any, that yourpatient has filled in the last twelve months. The information displayed on this report is compiled frompharmacy submissions to the Department, and accurately reflects the information as submitted by thepharmacies. This report was requested by: Sanford Cardenas Reference #: [id number] Others' Prescriptions Patient Name: Leland DiazBirth Date: 1980 Address: [address] [place] [id number]: Female Rx Written Rx Dispensed Drug Quantity Days Supply Prescriber Name Payment Method Dispenser 08/05/2020 08/05/2020 zolpidem tartrate 5 mg tablet 45 30 Cait Wyatt E, [id number] 06/13/2020 06/13/2020 morphine sulf 100 mg/5 ml conc 30ml 4 [place], Bonnie Morales [id number] 04/21/2020 04/26/2020 zolpidem tartrate 5 mg tablet 45 30 Cait Wyatt E, [facility] #[id number] 03/28/2020 03/28/2020 zolpidem tartrate 10 mg tablet 30 30 Cait Wyatt E, [facility] #[id number] 03/02/2020 03/05/2020 morphine sulf 100 mg/5 ml conc 120ml 20 [place], Bonnie Morales [facility]8 03/01/2020 03/04/2020 zolpidem tartrate 5 mg tablet 30 30 Cait Wyatt E, [facility][id number] 02/15/2020 02/20/2020 oxycodone hcl 10 mg tablet 120 30 [place], Bonnie Morales [facility] #1018 02/04/2020 02/04/2020 zolpidem tartrate 5 mg tablet 30 30 Cait Wyatt E, [facility] #[facility]8 01/22/2020 02/01/2020 methadone hcl 5 mg tablet 60 30 Jake, Bonnie Morales [facility] #1018 01/20/2020 01/25/2020 zolpidem tart er 6.25 mg tab 30 30 Cait Wyatt E, [facility] 6 Clinical Report - Physicians/Mid Levels [facility] Emergency Department [address] [place] [address] Phone #: ext- [phone] 12/05/2020 20:02 [facility]: [id number] Sex: F : 1980 Age: [id number] #[id number]/22/2020 01/22/2020 oxycodone hcl 10 mg tablet 120 30 [place], Bonnie Morales [facility] #[id number]/01/2020 morphine sulf 100 mg/5 ml conc 60ml 10 Jake, Bonnie Morales [facility] #[id number]/30/2019 methadone hcl 5 mg tablet 60 30 Jake, Bonnie Morales [facility] [id number] #[id number]/30/2019 morphine sulf 100 mg/5 ml conc 30ml 5 [place], Bonnie Morales [facility] #[id number]/28/2019 zolpidem tart er 6.25 mg tab 30 30 Cait Wyatt E, [facility] [id number] #[id number]/10/2019 oxycodone hcl 100 mg/5 ml conc 60ml 30 [place], Bonnie Morales [facility] #[id number] Name: Leland DiazBirth Date: 1980Address: [address] [facility] [address] [place], [place] [address]Ica: FemaleRx Written Rx Dispensed Drug Quantity Days Supply Prescriber Name Payment Method Jecayvumh53/05/2020 12/04/2020 zolpidem tartrate 10 mg tablet 30 30 Cait Wyatt E, [facility] #30011/15/2020 11/17/2020 oxycodone hcl 100 mg/5 ml conc 300ml 25 [place], Bonnie Morales [facility] #30011/15/2020 11/15/2020 oxycodone hcl 100 mg/5 ml conc 60ml 5 [place] [facility]#30011/14/2020 11/14/2020 zolpidem tart er 12.5 mg tab 30 30 Cait Wyatt E, [facility] #30010/28/2020 10/29/2020 lorazepam 0.5 mg tablet 10 5 Angeline De La Fuente NP [facility] #8710/20/2020 10/27/2020 oxycodone hcl 100 mg/5 ml conc 270ml 30 [facility]Bonnie [facility] #[facility]/20/2020 zolpidem tartrate 10 mg tablet 30 30 Cait Wyatt E, [facility] #30111/30/2019 09/30/2020 oxycodone hcl 100 mg/5 ml conc 270ml 30 [place], Bonnie Morales [facility] #09/21/2020 zolpidem tartrate 10 mg tablet 30 30 Cait Wyatt E, [facility] #30110/29/2019 09/05/2020 oxycodone hcl 100 mg/5 ml conc 270ml 30 [place], Bonnie Carmen [facility] #30110/25/2019 08/25/2020 zolpidem tartrate 10 mg tablet 30 30 Cait Wyatt E, [facility] #30108/08/2020 oxycodone hcl 100 mg/5 ml conc 270ml 30 Jake, Bonnie Carmen [facility] #300907/15/2020 oxycodone hcl 100 mg/5 ml conc 2 70ml 30 [place], Bonnie Carmen [facility] #30007/07/2020 07/07/2020 zolpidem tartrate 10 mg tablet 30 30 Cait Wyatt E, [facility] #130806/17/2020 oxycodone hcl 100 mg/5 ml conc 240ml 27 [place], Bonnie Carmen [facility] #30006/16/2020 06/16/2020 oxycodone hcl 100 mg/5 ml conc 30ml 3 [place], Bonnie Carmen [facility]#30006/07/2020 06/07/2020 zolpidem tartrate 10 mg tablet 30 30 Cait Wyatt E, [facility] #300705/23/2020 zolpidem tartrate 5 mg tablet 45 30 Cait Wyatt E, [facility] #30 7 Clinical Report - Physicians/Mid Levels [facility] Emergency Department [address] [place] [address] Phone #: ext- [phone] 12/05/2020 20:02 Patient: LELAND DIAZ Sex: F : 1980 Age: 40y 05/16/2020 05/18/2020 oxycodone hcl 100 mg/5 ml conc 180ml 30 [place], Bonnie J [facility] #30 05/02/2020 05/05/2020 oxycodone hcl 100 mg/5 ml conc 90ml 15 [place], Bonnie J [facility] #30 04/11/2020 04/22/2020 oxycodone hcl 100 mg/5 ml conc 90ml 15 [place], Bonnie J [facility] #30 03/30/2020 03/31/2020 oxycodone hcl 100 mg/5 ml conc 90ml 15 [place], Bonnie J [facility] #30 * - Drugs marked with an asterisk are compound drugs. If the compound drug is made up of more than one controlled substance, then each controlled substance will be a separate row in the table. 21:28 12/05/20. workup all in and reviewed and basically nml; H/H nml; pt very stable hemodynamically; [facility] is on diversion; waiting for [facility] to call back 21:50 12/05/20. Dr. Recinos, gastric surgeon from [facility] called back, case discussed w vitals and blood work, and she recommended to admit to medicine, so then Dr. Akins, hospitalist, was contacted and after brief discussion, he accepted pt for transfer; pt made aware of plan of care and she agrees. Critical care performed (60 minutes). Time is exclusive of separately billable procedures. Time includes: direct patient care, patient reassessment, coordination of patient care, interpretation of data (laboratory data), medical consultation and documentation of patient care- see progress notes. Patient counseled in person regarding the patient's stable condition, test results, diagnosis and need for transfer. Patient agrees with plan of care. Disposition: Benefits, risks and alternatives to transfer explained to patient. Transferred to [facility]. Summary of care (CCDA) provided to transport team, patient and transfer facility via paper. Condition: stable.CLINICAL IMPRESSION Chronic epigastric abdominal pain. S/P recent G-tube Insertion w bleeding in tube; Upper GI Bleed.(Electronically signed by Sanford Cardenas M.D. 12/06/2020 06:41) 8Clinical Report - Physicians/Mid Levels [facility] Emergency Department [address] [place] [address] Phone #: [phone] ext- [phone] 12/05/2020 20:02 Patient: LELAND DIAZ Sex: F : 1980 Age: 40y Name Value Range Interpretation Code Description Data Sumaya rce(s) Supporting Document(s) ID Date Data Source [id number] 12/06/2020 06:35:32 AM [facility] CT ANGIOGRAPHY ABDOMEN AND PELVIS [id number] INAL RESULTInterpreted by:BRITTANY MartinezROCEDURE INFORMATION: Exam: CT Angiography Abdomen and Pelvis Without And With Contrast, GI Bleeding Exam date and time: 12/06/2020 5:56 AM Age: 40 years old Clinical indication: Other: Bleeding from gtube TECHNIQUE: Imaging protocol: Computed tomographic angiography of the abdomen and pelvis without and with contrast. 3D rendering (Not supervised by radiologist): MIP and/or 3D reconstructed images were created [...] (IV); COMPARISON: CT ABDOMEN PELVIS WITH CONTRAST [id number] 10/28/2019 3:53 AM FINDINGS: Tubes, catheters and [...] HAS BEEN ELECTRONICALLY SIGNED BY GABRIELLE MURCIA MDThis document has been electronically signed by Gabrielle Murcia MD on 12/06/2020 6:35 AM Name Value Range Interpretation Code Description Data [facility] rce(s) Supporting Document(s) ID Date Data Source [id number] 12/06/2020 04:17:23 AM [facility] Name Value Range Interpretation Code Description Data [facility] rce(s) Supporting Document(s) Leukocytes [#/volume] in Blood by Automated count 5.6 10*3/uL 4-10 [facility] Erythrocytes [#/volume] in Blood by Automated count 3.79 10*6/uL 4.1- 5.3 L [facility] Hemoglobin [Mass/volume] in Blood 10.8 g/dL 11.5-15.5 L [facility] Hematocrit [Volume Fraction] of Blood by Automated count 32.5 % 3 6-45 L [facility] Erythrocyte mean corpuscular volume [Entitic volume] by Auto mated count 85.6 fL 80-96 [facility] Erythrocyte mean corpuscular hemoglobin [Entitic mass] by Automated count 28.6 pg 27-33 [facility] Erythrocyte mean corpuscular hemoglobin concentration [Mass/volume] by Automated count 33.4 g/dL 32.0-36.0 [facility] E[facility]th[facility] distribution width [Ratio] by Automated count 17.7 % 11.5-14.5 H [facility] Platelets [#/volume] in Blood by Automated count 280 10*3/uL 150-400 [facility] Differential cell count method - Blood [facility] Neutrophils/100 leukocytes in Blood by Automated count 68 % [facility] Lymphocytes/100 leukocytes in Blood by Automated count 21 % [facility] Monocytes/100 leukocytes in Blood by Automated count 9 % [facility] Eosinophils/100 leukocytes in Blood by Automated count 1 % [facility] Basophils/100 leukocytes in Blood by Automated count 1 % [facility] Neutrophils [#/volume] in Blood by Automated count 3.86 10*3/uL 1.8-7 .0 [facility] Lymphocytes [#/volume] in Blood by Automated count 1.15 10*3/uL 1.2-4 .0 L [facility] Monocytes [#/volume] in Blood by Automated count 0.48 10*3/uL 0-0.8 [facility] Eosinophils [#/volume] in Blood by Automated count 0.04 10*3/uL 0-0.5 [facility] Basophils [#/volume] in Blood by Automated count 0.03 10*3/uL 0-0.2 [facility] Nucleated erythrocytes/100 leukocytes [Ratio] in Blood by Automated count 0 /100{WBCs} 0-0 [facility] ID Date Data Source [id number] 12/06/2020 04:35:10 AM [facility] Name Value Range Interpretation Code Description Data Sumaya rce(s) Supporting Document(s) Bicarbonate [Moles/volume] in Serum 23 mmol/L 22-29 [facility] Chloride [Moles/volume] in Serum or Plasma 108 mmol/L 98-107 H [facility] Creatinine [Mass/volume] in Serum or Plasma 0.62 mg/dL 0.50-0.90 [facility] Glucose [Mass/volume] in Serum or Plasma 128 mg/dL 70-140 [facility] Potassium [Moles/volume] in Serum or Plasma 3.3 mmol/L 3.4-5.1 L [facility] Sodium [Moles/volume] in Serum or Plasma 141 mmol/L 136-145 [facility] Urea nitrogen [Mass/volume] in Serum or Plasma 7 mg/dL 6-20 [facility] Anion gap 3 in Serum or Plasma 10 mmol/L 8-15 [facility] Osmolality of Serum or Plasma by calculation 292 mosm/kg 275-300 [facility] Creatinine/Urea nitrogen [Mass Ratio] in Serum or Plasma 11 [facility] Calcium [Mass/volume] in Serum or Plasma 8.2 mg/dL 8.6-10.0 L [facility] Glomerular filtration rate/1.73 sq M pre dicted among non-blacks [Volume Rate/Area] in Serum or Plasma by Creatinine-based formula (MDRD) >6 0 [facility] Glomerular filtration rate/1.73 sq M pre dicted among blacks [Volume Rate/Area] in Serum or Plasma by Creatinine-based formula (MDRD) >60 [facility] ID Date Data Source [id number] 12/06/2020 07:23:46 AM EST [facility] Name Value Range Interpretation Code Description Data Sumaya rce(s) Supporting Document(s) Specimen source [Identifier] of Unspecified specimen [facility] SARS-CoV-2 RNA 2019 nCoV Real-Time RT-PCR: NOT DETECTED [facility] Assay Performed [facility] Patients first test for condition [facility] Patient employed in healthcare setting [facility] Patient has symptoms related to [facility] When did you start to experience these symptoms [Date and time] [Phen X] [facility] Patient was hospitalized because of this condition [facility] patient was admitted to ICU for [facility] Patient resides in a congregate care setting [facility] status [facility] ID Date Data Source [id number] 12/06/2020 02:28:00 AM EST [facility] Name Value Range Interpretation Code Description Data Sumaya rce(s) Supporting Document(s) SARS-CoV-2 RNA 2019 nCoV Real-Time RT-PCR: NOT DETECTED [facility] This lab was ordered by [facility] and reported by [facility]. ID Date Data Source [id number] 12/05/2020 10:04:07 PM EST [facility] Name Value Range Interpretation Code Description Data Sumaya rce(s) Supporting Document(s) Progress Note [facility] FTXQRc4lVxVQZtGz17/KZYvtYXSpx4DuHGtaXHy4ZRlvNPImF3BaGRH9jB8lMSI5YQlAVaSvWqNsLuG3 [facility] [file] CiAgICAgICAgICAgICAgICAgICAgICAgICAgICAgICAgICAgICAgICAgICAgICAgICAgICAgICAgICAg ICAgICAgICAgICAgICAgICAgICAgICAgICAgICAgIC AgICAgICAgICANCiAgICAgICAgICAgICAgICAgICAgICAgICAgICAgICAgICAgICAgICAgICAgICAgIC AgICAgICAgICAgICAgICAgICAgICAgICAgICAgICAgICAgICAgICAgICAgICAgICAgICANCiAgICAgIC AgICAgICAgICAgICAgICAgICAgICAgICAgICAgICAg ICAgICAgICAgICAgICAgICAgICAgICAgICAgICAgICAgICAgICAgICAgICAgICAgICAgICAgICAgICAg ICANCiAgICAgICAgICAgICAgICAgICAgICAgICAgICAgICAgICAgICAgICAgICAgICAgICAgICAgICAg ICAgICAgICAgICAgICAgICAgICAgICAgICAgICAgIC AgICAgICAgICAgICANCiAgICAgICAgICAgICAgICAgICAgICAgICAgICAgICAgICAgICAgICAgICAgIC AgICAgICAgICAgICAgICAgICAgICAgICAgICAgICAgICAgICAgICAgICAgICAgICAgICAgICANCiAgIC AgICAgICAgICAgICAgICAgICAgICAgICAgICAgICAg ICAgICAgICAgICAgICAgICAgICAgICAgICAgICAgICAgICAgICAgICAgICAgICAgICAgICAgICAgICAg ICAgICANCiAgICAgICAgICAgICAgICAgICAgICAgICAgICAgICAgICAgICAgICAgICAgICAgICAgICAg ICAgICAgICAgICAgICAgICAgICAgICAgICAgICAgIC AgICAgICAgICAgICAgICANCiAgICAgICAgICAgICAgICAgICAgICAgICAgICAgICAgICAgICAgICAgIC AgICAgICAgICAgICAgICAgICAgICAgICAgICAgICAgICAgICAgICAgICAgICAgICAgICAgICAgICANCi AgICAgICAgICAgICAgICAgICAgICAgICAgICAgICAg ICAgICAgICAgICAgICAgICAgICAgICAgICAgICAgICAgICAgICAgICAgICAgICAgICAgICAgICAgICAg ICAgICAgICANCiAgICAgICAgICAgICAgICAgICAgICAgICAgICAgICAgICAgICAgICAgICAgICAgICAg ICAgICAgICAgICAgICAgICAgICAgICAgICAgICAgIC AgICAgICAgICAgICAgICAgICANCjw/tOElA7psmARxvaT7F9udKb4QBi6AMT9qe0EkIMTiNGyjhuHjTm lCZeEsGXBwNlgXOim3OXvxRF5WmEIyU7XyA6EuRDveBW3WXVOzNRLnrCZbRGFrCJZbZlN5MWCrIBajCY 9DtOAtYTikBIYwODYuHC5YIXFiN505hyEgLQ0FGl7D ScPoIU7blf1HEJPdCANvAdxAJgv1VAfhLA4DlJDonILxPYUfYKLWBcRkY8plj7NePBQpBBMVXGpjUX4D e7LufIWvSKv+Au5QLI0la4BpOKrlENEmJM1xcd7KWTxVKsAtY0YihQzcEJHso6ogUKAgIV5smAYpHKC4 MBVjjdLtWVAOJUA2p2GcOVenIbbcJUEjIYPqIt5cBZ 2dACYuZNI5MyA3MLKGBY6EBRRnJSHfuYEyPYLdIFMPQG1RJKicONG7RXItdsKgrRTvGCfrTE4FFFLqww QgMTQgMCBSDQo+Xu5HOA8gd2DwLOhvFjFuQE5vju8BXCgZWrDoW3G2hAYpY2D9IOimNw3OZKQeXHClIC MwKAHSPEtxEL7XIL7eueK1TP9ReMLkJANzAJNclINf CXh0N69pvDWqRWxtWJ3MIPP+Savannah+Ha1FFWHhGXZxWRYnPsDhDAVPUwPuW9YcR5PXd4WeE3IgLA34tGmj kvQtDPlgYE4LCW9rPHEoLXGMIB0PtPTkxZ6xnfBiJHUfDFHYMiFlL84anBTaXGToGVHqORFiJy2RRAOl W7KvpvNkmXmyyjBsSNHsXGVJCD6FOJzvzeYqtCGbjO oqDQ91tFhiGF2JWt1KTzYnZA3xiv4SwCKxCh3MELEbDg2FKEOyCLAxEVLgOZB3PPNkMsZnZLmnUUHhBQ AdJJB2MUZpGWCjRB7YIcIkTIGqSQU1PgRaLOCpRRVwhj9UWKFrLHMuHhS7HeSqQVRiZGVxHYpoFZSpXM RuKYY2UGEoWIXuVL3RUvPnSISqMHR1LIIvEKZpHSHt ep7KGFYsEZGnYgk3MfVvQGPfQWQtLGzcMYTtDJVqWzQ5KHGnKKBnXW9KIzMjKLSzOGT9YOQgGEYdOUKy it3VPWCkRHYuUFH5SeGoOVCgLRGkGQrnGQLmTNB3GTOoHOVfAZGmRJ8YChGiWKVoPHHoQKWhEQIyAPXt gt7QFWZlKKYiHLZaJAEvTFGoQTGjMYcbMZOtJJO3HV ZqGUDfASHeCD4NWtGbSGQjNIwqKTEwWZApRYKznd0CBMJlQMYhKlN3ZpSrFDMcKVKtNGezWWRtQKY8HQ B1SKZyPFXhMN4NEsPtCWkhGSVLMju5VLeuW9p1ABRsWl3PX2Kdr2XeJBUtLPVSREgwGP8ymmDeBRMsIm 5CO8iHEdcpRiBaMYuvAwHuDOSmTCRgA5H3NpcrBYMt WlG9MSVwLc3nBWL3CwZxX9WkFFP2OmN0SqQdOKP0UkLkEjVzTHQ6LmIsHiYiMU5WQk1KXwB4BWR4wQJl Ca4LVvh0XH5NNTOUK9QUXn== ID Date Data Source [id number] 12/05/2020 09:24:00 PM EST [facility] NOT DETECTEDNOT DETECTED{ PROC EDURAL CONTROL VALID KIT LOT # _[id number] 12/05/20.MARICARMEN. KIT EXP DATE _82-28-34 12/05/20.MARICARMEN. NORMAL RANGE IS NOT DETECTEDNEGATIVE RESULTS SHOULD BE TREATED PRESUMPTIVE AND, IF INCONSISTENT WITHCLINICAL SIGNS AND SYMPTOMS OR NECESSARY FOR PATIENT MANAGEMENT, SHOULD BETESTED WITH DIFFERENT AUTHORIZED OR CLEARED MOLECULAR TESTS. NEGATIVE RESULTSDO NOT PRECLUDE SARS-CoV-2 INFECTION AND SHOULD NOT BE USED THE SOLE BASISFOR PATIENT MANAGEMENT DECISIONS. Name Value Range Interpretation Code Description Data Sumaya rce(s) Supporting Document(s) ID Date Data Source [id number] 12/05/2020 09:00:00 PM EST [facility] Name Value Range Interpretation Code Description Data Sumaya rce(s) Supporting Document(s) COVID19 Case rprt NOT DETECTED [facility] This lab was ordered by [facility] DARIUS DAVIS and reported by [facility]. ID Date Data Source [id number] 12/05/2020 10:20:00 PM [facility] Name Value Range Interpretation Code Description Data Sumaya rce(s) Supporting Document(s) ABO group [Type] in Blood O [facility] Rh [Type] in Blood NEGATIVE [facility] AB SCREEN NEGATIVE NORMAL: NEGATIVE [facility] { ABO/RH REENTER O NEGATIVE{ AB SCREEN RE-ENTER NEGATIVE ID Date Data Source [id number] 12/05/2020 09:22:00 PM [facility] Name Value Range Interpretation Code Description Data Sumaya rce(s) Supporting Document(s) Lipase [Enzymatic activity/volume] in Serum or Plasma 54 U/L 13 - 60 [facility] ID Date Data Source [id number] 12/05/2020 09:22:00 PM EST [facility] Name Value Range Interpretation Code Description Data Sumaya rce(s) Supporting Document(s) COMPREHENSIVE METABOLIC PANEL [facility] COMPREHENSIVE METABOLIC PANEL Sodium [Moles/volume] in Serum or Plasma 139 mEq/L 134 - 153 [facility] Potassium [Moles/volume] in Serum or Plasma 3.6 mEq/L 3.6 - 5.0 [facility] Chloride [Moles/volume] in Serum or Plasma 104 mEq/L 98 - 107 [facility] Carbon dioxide, total [Moles/volume] in Serum or Plasma 24 MEQ/L 22 - 30 [facility] Glucose [Mass/volume] in Serum or Plasma 128 MG/DL 70 - 99 H [facility] BUN 9 MG/DL 7 - 21 [facility] Creatinine [Mass/volume] in Serum or Plasma 0.5 MG/DL 0.7 - 1.5 L [facility] BUN/CREAT 18 8 - 27 [facility] Protein [Mass/volume] in Serum or Plasma 7.3 G/DL 6.3 - 8.2 [facility] Albumin [Mass/volume] in Serum or Plasma 4.7 G/DL 3.9 - 5.0 [facility] Globulin [Mass/volume] in Serum by calculation 2.6 GM/DL 2.4 - 3.2 [facility] A/G RATIO 1.8 0.8 - 2.0 [facility] Calcium [Mass/volume] in Serum or Plasma 9.7 MG/DL 8.4 - 10.2 [facility] Bilirubin.total [Mass/volume] in Serum or Plasma <0.7 MG/DL 0.2 - 1.3 [facility] Alkaline phosphatase [Enzymatic activity/volume] in Serum or Plasma 83 U/L 38 - 126 [facility] Aspartate aminotransferase [Enzymatic activity/volume] in Serum or Plasma 11 U/L 5 - 40 [facility] Alanine aminotransferase [Enzymatic activity/volume] in Seru m or Plasma 9 U/L 7 - 56 [facility] Anion gap 3 in Serum or Plasma 11.0 mmol/L 8.0 - 16.0 [facility] AGE 40 yrs [facility] NON-AA GFR >60 mL/min [facility] ital AFR AMER GFR >60 mL/min [facility] Ho spital Male GFR In terprentation [...] >32 mL/min Normal ID Date Data Source [id number] 12/05/2020 09:21:00 PM EST [facility] Name Value Range Interpretation Code Description Data Sumaya rce(s) Supporting Document(s) CBC W/AUTOMATED DIFF [facility] COMPLETE BLOOD COUNT Leukocytes [#/volume] in Blood by Automated count 7.2 10^3/uL 4.2 - 1 1.0 [facility] Erythrocytes [#/volume] in Blood by Automated count 4.33 10^6/uL 4. 20 - 5.40 [facility] Hemoglobin [Mass/volume] in Blood 12.1 g/dL 12.0 - 16.0 [facility] Hematocrit [Volume Fraction] of Blood by Automated count 37.1 % 3 7.0 - 47.0 [facility] Erythrocyte mean corpuscular volume [Entitic volume] by Auto mated count 85.7 fL 81.0 - 101 [facility] Erythrocyte mean corpuscular hemoglobin [Entitic mass] by Automated count 27.9 pg 27.0 - 34.0 [facility] Erythrocyte mean corpuscular hemoglobin concentration [Mass/volume] by Automated count 32.6 g/dL 31.0 - 36.0 [facility] Erythrocyte distribution width [Ratio] by Automated count 15.6 % 11.5 - 14.5 H [facility] Platelets [#/volume] in Blood by Automated count 378 10^3/uL 150 - 45 0 [facility] Platelet mean volume [Entitic volume] in Blood by Automated count 9.7 fL 7.4 - 10.4 [facility] Neutrophils/100 leukocytes in Blood by Automated count 77.3 % 37. 0 - 80.0 [facility] Lymphocytes/100 leukocytes in Blood by Manual count 13.4 % 25.0 - 40.0 L [facility] Monocytes/100 leukocytes in Blood by Automated count 6.4 % 3.0 - 8.0 [facility] Eosinophils/100 leukocytes in Blood by Automated count 2.2 % 0.0 - 7.0 [facility] Basophils/100 leukocytes in Blood by Automated count 0.4 % 0.0 - 2.5 [facility] %IG 0.3 % 0.0 - 0.0 H [facility] al %NRBC 0.0 % 0.0 - 0.0 [facility] al Neutrophils [#/volume] in Blood by Automated count 5.52 10^3/uL 2.00 - 6.90 [facility] Lymphocytes [#/volume] in Blood by Automated count 0.96 10^3/uL 0.60 - 3.40 [facility] Monocytes [#/volume] in Blood by Automated count 0.46 10^3/uL 0.00 - 0.90 [facility] Eosinophils [#/volume] in Blood by Automated count 0.16 10^3/uL 0.00 - 0.70 [facility] Basophils [#/volume] in Blood by Automated count 0.03 10^3/uL 0.00 - 0.20 [facility] #IG 0.02 10^3/uL 0.00 - 0.10 [facility] #NRBC 0.00 10^3/uL 0.00 - 0.00 [facility] MANUAL DIFF SEE BELOW [facility] ital Segmented neutrophils/100 leukocytes in Blood by Manual count 76 % 37 - 80 [facility] BAND 2 % 0 - 5 [facility] %LYMPH 17 % 25 - 40 [facility] %MONO 5 % 3 - 8 [facility] RBC MORPH MORPH IS NORMAL [facility] ID Date Data Source [id number] 12/05/2020 09:01:00 PM [facility] Name Value Range Interpretation Code Description Data Sumaya rce(s) Supporting Document(s) Prothrombin time (PT) 13.1 SECONDS 11.0 - 15.5 [facility] INR in Platelet poor plasma by Coagulation assay 0.94 0.93 - 1. 23 [facility] aPTT in Blood by Coagulation assay 54.4 SECONDS 24.8 - 36.7 H [facility] \\BLDo\\INR INTERPRETATION\\BLDx\\ Therapeutic range for Coumadin and related oral anticoagulants. - International Normalized Ratio (INR): 2.0 - 3.0 for Venous Thrombosis, Pulmonary Embolus, Tissue heart valves, Acute ND Atrial Fibrillation, Valvular heart disease and recurrent Systemic Embolism. - International Normalized Ratio (INR): 2.5 - 3.5 for Mechanical Prosthetic valve. ID Date Data Source [id number] 12/05/2020 08:52:00 PM [facility] Name Value Range Interpretation Code Description Data Sumaya rce(s) Supporting Document(s) Lactate [Moles/volume] in Serum or Plasma 2.3 MMOL/L 0.2 - 2.2 H [facility] ID Date Data Source [id number] 11/30/2020 12:40:15 PM [facility] Name Value Range Interpretation Code Description Data Sumaya rce(s) Supporting Document(s) Progress Note [facility] VDWVNh2zCgMQZwLh74/YFJhrXUPed0TuRMhlEGi9PDugSMWcW5NqCMT3jG0mGMZ1EMxEJeDeCpJvRpXk [facility] [file] [id number]//jpcrWm [file] H2WhA4EKQpJ3YaNcNdZJ1NPa3CCvF2YUV9bPFzTo3SDQJ6UCPVAxBwYO3DXEs= ID Date Data Source [id number] 11/30/2020 12:40:05 PM [facility] Name Value Range Interpretation Code Description Data Sumaya rce(s) Supporting Document(s) Progress Note [facility] FVFEYw0wBjKYZmBx81/GRRhbJZIvm5RwYQkbQAh7JUxwTHRuQ0XrPSL3rR6kDLF6QMtECpXtXyZcQkBa l[facility] [file] AgICAgICAgICAgICAgICAgICAgICAgICAgICAgICAgICAgICAgICAgICAgICAgICAgICAgICAgICAgIC MpMOSnEQFiWXIeLDDgNYKtWNXqUYHiGHUuHB5GQWLh ICAgICAgICAgICAgICAgICAgICAgICAgICAgICAgICAgICAgICAgICAgICAgICAgICAgICAgICAgICAg BQQfGCQsVFLfGZHiDPWdADBkMZUfVFXeMKPoKBFqQONkPKHjJB6UUCBqZFWmZKSkUYSoIZPwQTHnSPZv ICAgICAgICAgICAgICAgICAgICAgICAgICAgICAgIC SeILDvMBKbNGJqXMVpHYOlCRIaCAVlXFQyPTTzVUQrFSRoWXYrEZEzYKWdCUZiRX8RANPzQKImIGHnUD AgICAgICAgICAgICAgICAgICAgICAgICAgICAgICAgICAgICAgICAgICAgICAgICAgICAgICAgICAgIC UuJVFbXNVdGXTuDJQlFPUtOQWhBHWoVQHyYIUeSN5M ICAgICAgICAgICAgICAgICAgICAgICAgICAgICAgICAgICAgICAgICAgICAgICAgICAgICAgICAgICAg YUSjVDHzETMcMUCuOMXiSCHtUCQcOQBpLLSrBKIqBUIqSWMjDZEiMB5LJELbMXFfTKZiHDLbGOWmUYUq ICAgICAgICAgICAgICAgICAgICAgICAgICAgICAgIC RnRWPyBZDdHJIgFYAqZKChAKHuLDXeYSDuVENwFMDuQMVsXJHnRGAxWNMcXNAuOGDlNS5XGMXzASGkDB AgICAgICAgICAgICAgICAgICAgICAgICAgICAgICAgICAgICAgICAgICAgICAgICAgICAgICAgICAgIC AgICAgICAgICAgICAgICAgICAgICAgICAgICAgICAg KG5GWIPiJJMyONMkOKBvWTUqOLRiKXEzFCWbSJCbIKQvOOMpIZUjTQTpKKEnBSEjSWJcTXEdHDNqRGCe UHKtACYrBZHvCLTjUNHuFQRpORRwRMOmGIRoTPXbYZYeLIEaYMHvAJNoZK2EREEvSWXwWEIoZTPgHQRl ICAgICAgICAgICAgICAgICAgICAgICAgICAgICAgIC QcXTNlYXIzTRGdULUkMSKdQBWvVPYcRLLnSDHvPXAkNGHaPVUxFYIzEXFaVQDoMTWcVDDfZH1VUNQoJG AgICAgICAgICAgICAgICAgICAgICAgICAgICAgICAgICAgICAgICAgICAgICAgICAgICAgICAgICAgIC AgICAgICAgICAgICAgICAgICAgICAgICAgICAgICAg PTRrJU2NTZ98rSDns4R8KIUaMP8ubxy/Us0OZKaywhMqtRBtHL7MPdGjPH3olp9DAzHcGJ0rxa9AVGyT CcJnL5J6lYVbMMPxOVBDMhIjD49ySSwjHb62XHdbYYNuWxNuNOl4Fk7RHpDiB5wiHLYiLxP2ZWFuVtXa TGapOZ7Ai7TldVPmZAx+Hk5LFM8al5HfGMrsNfSxBR 2kxq3RPCeBClYcH8OzrmR3GBFfEWDzDu1ZURNfAEFeqHYvPkVlKUQBOrXxS7TvjC49WSADYw7+DQplbm GaKivJLeApZZWux4VdIDy4SU4SNWAwQNl7cWOhJTJrN1Eeq8TnTq77VIPtUzquFwLdIFUuQCFTZBLhiI IgiF7rmsojFWHFQIE0WWSiSC4oUUHpMWHwHyClTPWS PS7KXDUdCNIyoYNaISTaRAFGZT4RZAguUOO8FVVaixTeyVUwTBqwUF0IQHEgmjIwTdNwMDQKZKm+Pg0K BK0ia6WgRBvhBLUtHU4yrs8PDPzXQtYsG1G9gYShX8F6JVowLk4WEDYdJYEcRbPiVNWELIpvWB2PJA2t wvZ8CC4HhZQeANBlBIBxrYEjRDn4X93iiREpRExvIM 0KICA+Savannah+Yn9OHAXfCTJyJHYgQxQmBSHRMhSxP6KhZ4PQe8LlO4MsPE47gHinbaQgRXooBL8GYJ1zIB UhUOVOZH0KfLDxuK1zwlMoSwZlNLVQZvZgE59jmPWsOGGwVSQsXKUzGk3MKXHdN7HhlaPpjGbcgcYqGD HvNIISTO7WHJypqxYgjVWrfTbmDN17qWomRL2SSw6M WaIaQY4rzv2BtVNbEo9CGNSmES0NMRKyUEOvTZYqANP7ZPIlXgScXWqfYXUfWIIwSGK1JTPbJPZgAL9Q IxMlSDZtAQz2JWPuUXHaFMUpeq5BEZPwEFBbRBM9GUWoFNEjYXDkDMidMGMzNUGiCGK0VIOeIHIfZF1N KcToFXHjPHJpVYKxEBOrNPSyha3GNKMdIAXhKbC7LJ XaNLPgIWPtWOsqYBBkWAHiWzX6SPBzLZSnKK2EMfEiXTUhAMH9UABbAVDxTZRzum3RMSOyJKJgLhA8OL WqCIYrSAAfZMysBPWgEVI4HaKgIOJsTWPzIY3KJdRbVAKbPOC7MZMbFYIcZMHwrz7RUDGeNGObDIQsOH SrSJGzDUIuZMyaTCRdBLW4Qnw5GKXmKPYrDC8JCtTc PSBpBOZ0ZBDzOTNsDURtcf4OZBEfDJRiMampPKToTWRfKUXnMBqxLQHeRNT6ZCKlXVXxMPNwFY8TQtKl BWThYTdsGEisQWUgSNMlzh8OKJHbRKMuIGB4CTVtHTZkHGFpMZffWQAmLSA9IKSrQQXiBKVmMC2GSrHc JWAyARh6CPRdQMGpBOYdym9XBAShIOFdHBNqIPEhYI MmMNXwUSypEHYwGWMnGRJ1LMLnGCGqNZ7LLgNeEXXrJlK6RLufXSTbFPPgvq6JOHJcEGLaPFK0EtJvHG QgJOCjXYm7aaNskPFbCFp0MD5ZA0IhvhRjBvHWPe7Mt867BIC5WZGxQn7AT5krMe0mRUUiELEPYy1JDV e6ZiYpTCSpWLNhU5YmSrE9UID1GzEaHtG1ZpX2CSJ7 YmM+XGeoS6EzKvB4TGD1VdGwUHt6HAgbWFIoEzwaZeLgAhwwBz3pCEXTVt7+DQpzdGFydHhyZWYNCjIw GKD5EKveZNDPZn5W ID Date Data Source [id number] 11/22/2020 09:53:00 PM EST [facility] Name Value Range Interpretation Code Description Data Sumaya rce(s) Supporting Document(s) SARS coronavirus 2 RNA [Presence] in Res piratory specimen by FAN with probe detection NEGATIVE [facility] This lab was ordered by [facility] a nd reported by [facility]. ID Date Data Source [id number] 11/18/2020 02:15:00 PM EST [facility] JOSE [id number] VASQUEZ BERNABE [id number] NAME: COREY DIAZ OF : 1980REPORT: OPERATIONPATIENT NUMBER: [id number] STATUS: IPMEDICAL RECORD NUMBER: [id number] OF ADMISSION: 10/17/2020DATE OF DISCHARGE: 1ROOM: 00DATE OF PROCEDURE: 10/25/2020REOPERATIVE DIAGNOSIS: Abdominal pain and CT scan showing possibleinternal hernia.POSTOPERATIVE DIAGNOSIS: Abdominal pain and CT scan showing possibleinternal hernia.OPERATION PERFORMED: Diagnostic laparoscopy with repair of an internalhernia and insertion of percutaneous endoscopic gastrostomy tube.SURGEON: YESSY ManzoISTANT: JUSTEN EasonTHESIA: General endotracheal anesthesia by Alba Rodriguez CRNA and .ESTIMATED BLOOD LOSS: Minimal.BRIEF INDICATIONS FOR PROCEDURE: Leland is a 40-year-old white female. She has a very complex history. She had a gastric bypass elsewhere manyyears ago and had numerous problems since then. [facility] I have not been able to find definitive evidence ofwine her symptoms were so severe. She ultimately underwent a reversal ofher gastric bypass by Dr. Ramakrishna Carnes at [facility]. Thepatient now presents to our attention with worsening problems withabdominal pain and nausea and vomiting. The patient states that she hashad nausea and vomiting for quite some time particularly after herreversal. CT scan in our hospital shows what appears to be a swirlingpattern of mesentery in the mid abdomen and I am concerned about thepossibility of an internal hernia.PROCEDURE: After informed consent was obtained, the patient was taken tothe operating room and placed in supine position. Sequential compressiondevices were placed and circulating prior to the induction of a generalendotracheal anesthetic. The abdomen was prepped and draped in usualsterile fashion. A time-out was performed. We verified antibiotics,antic oagulants and SCDs. We then proceeded to anesthetize the skin in theleft upper quadrant, make a small incision, insert a Veress needle andinsufflate the abdomen. Once the abdomen was insufflated, we performed anoptical entry in the right lower quadrant near one of our trocar siteslaterally near the anterior axillary line. We were able to get in withoutdifficulty. We found that the Veress needle had been placed without anyinjury or untoward events and there were minimal adhesions in the abdominalcavity. We placed a 12 mm trocar in the right upper quadrant near theright midclavicular line and a 5 mm trocar laterally in the left lateralabdominal wall and at this point I was able to essentially from theligament of Treitz to the anastomotic site and identified the commonchannel as well as what was a defunctionalized limb which had been the Rouxlimb. This was attached to the anterior abdominal wall where a J tube hadbeen placed. There was a mesenteric defect in this location and there didappear to be some twisting of the intestine at this location so weuntwisted the intestine, made sure that it had been detorsed, and we closedthe mesenteric defect with a running suture of permanent V-Loc. Once thathad been completed, we removed our trocars, closed the 12 mm trocar site atat the fascial level with an Endoclose device, desufflated her abdomen andperformed an upper endoscopy. The upper endoscopy allowed us to place thePEG tube. We did see a good light reflex in the left upper quadrant justto the left of midline and we placed the needle through the anteriorabdominal wall into the stomach and then placed the guidewire through theneedle. It was grasped with the snare and removed through the mouth. Thepercutaneous endoscopic gastrostomy tube was fed back over the guidewireand was pulled out through the anterior abdominal wall until it was restingin good position close to but not too tight to the anterior abdominal wall.We made sure that it was not too tight by spinning the tube and making surethat it spun freely without too much pressure on the anterior gastric wall.We then assembled the tube appropriately and sewed it to the anteriorabdominal wall. I removed the endoscope after verifying good position ofthe G-tube. All of the trocar sites had been closed with buriedinterrupted sutures of Monocryl. We applied the appropriate dressings andtook the patient to the recovery room in stable condition.DICTATED BY: Adrian Son MDDictated: 11/18/2020 9:21DT: 11/18/2020 9:32Job #: [id number]:NOTE: [facility] computer generated reports are not confirmed orauthenticated unless they are signed by the providerElectronically Authenticated by:ADRIAN SON MD On 11/18/2020 02:15 PM EST Name Value Range Interpretation Code Description Data Sumaya rce(s) Supporting Document(s) ID Date Data Source [id number] 11/10/2020 12:16:00 PM EST [facility] Name Value Range Interpretation Code Description Data Sumaya rce(s) Supporting Document(s) SARS coronavirus 2 RNA [Presence] in Res piratory specimen by FAN with probe detection NEGATIVE [facility] This lab was ordered by [facility] a nd reported by [facility]. ID Date Data Source [id number] 10/27/2020 05:39:50 PM EST [facility] Name Value Range Interpretation Code Description Data Sumaya rce(s) Supporting Document(s) POC GLUCOSE 136 mg/dL (70-99) H [facility] PERFORMED BY CLINICAL STAFF ID Date Data Source [id number] 10/26/2020 03:09:05 PM EST [facility] Name Value Range Interpretation Code Description Data Sumaya rce(s) Supporting Document(s) LIPASE 128 U/L (65-230) [facility] ID Date Data Source [id number] 10/26/2020 03:09:05 PM EST [facility] Name Value Range Interpretation Code Description Data Sumaya rce(s) Supporting Document(s) SODIUM 137 mmol/L (136-145) [facility] POTASSIUM 4.2 mmol/L (3.6-5.2) [facility] CHLORIDE 102 mmol/L (100-108) [facility] CO2 26 mmol/L (22-31) [facility] ANION GAP 9 mmol/L (7-16) [facility] UREA NITROGEN 9 mg/dL (7-24) [facility] CREATININE 0.77 mg/dL (0.60-1.00) [facility] BUN/CREAT RATIO 11.7 RATIO (10.0-20.0) [facility] GLUCOSE 149 mg/dL (70-99) H [facility] CALCIUM 9.6 mg/dL (8.4-10.2) [facility] TOTAL PROTEIN 6.8 g/dL (6.4-8.2) [facility] ALBUMIN 4.1 g/dL (3.5-4.6) [facility] GLOBULIN 2.7 g/dL (2.7-4.3) [facility] ALB/GLOB RATIO 1.5 RATIO [facility] ALKALINE PHOSPHATASE 100 U/L (45-117) [facility] BILIRUBIN,TOTAL 0.5 mg/dL (0.0-1.0) [facility] PLEASE NOTE:Total bilirubin results may be falselyelevated in patients taking Eltrombopag. AST (SGOT) 12 U/L (11-39) [facility] ALT (SGPT) 43 U/L (12-78) [facility] GFR >60 ml/min/1.73m2 (>59) [facility] GFR ( AMER) >60 ml/min/1.73m2 (>59) [facility] GFR INTERPRETATION [facility] --NORMAL KIDNEY FUNCTION OR MILD DISEASE - GFR >OR= 60CHRONIC KIDNEY DISEASE - GFR 15 - 59RENAL FAILURE - GFR <15 Est. GFR calculation based on the MDRDstudy equation, which assumes a steadystate for creatinine. Est. GFR should notbe used for medication dosing. ID Date Data Source [id number] 10/26/2020 02:38:18 PM EST [facility] Name Value Range Interpretation Code Description Data Sumaya rce(s) Supporting Document(s) WBC 10.7 10*3/uL (4.1-11.0) [facility] RBC 4.45 10*6/uL (4.00-5.40) [facility] HGB 12.0 g/dL (12.0-16.0) [facility] HCT 36.1 % (36.0-47.0) [facility] MCV 81.1 fL (80.0-95.0) [facility] MCH 26.9 pg (27.0-32.0) L [facility] MCHC 33.2 g/dL (32.0-36.0) [facility] RDW 21.1 % (10.5-14.5) H [facility] PLT 328 10*3/uL (150-450) [facility] Benitez MPV 8.2 fL (7.1-10.7) [facility] ID Date Data Source [id number] 10/26/2020 02:37:23 PM EST [facility] Name Value Range Interpretation Code Description Data Sumaya rce(s) Supporting Document(s) PT 10.5 s (9.2-11.9) [facility] INR 1.00 [facility] SUGGESTED THERAPEUTIC RANGES USING INR F ORSTABILIZED ANTICOAGULATED PATIENTS:STANDARD DOSE THERAPY INR 2.0-3.0 DVT, PE, PREVENT DVT OR EMBOLISMHIGH DOSE THERAPY INR 2.5-3.5 PREVENT EMBOLISM FROM MECHANICAL HEART VALVE ID Date Data Source [id number] 10/26/2020 11:19:25 AM EST [facility] Name Value Range Interpretation Code Description Data Sumaya rce(s) Supporting Document(s) POC GLUCOSE 172 mg/dL (70-99) H [facility] PERFORMED BY CLINICAL STAFF ID Date Data Source [id number] 10/26/2020 10:12:41 AM EST [facility] Name Value Range Interpretation Code Description Data Sumaya rce(s) Supporting Document(s) PT H [facility] DISREGARD RESULTSPOSSIBLE CONTAMINATION/ SUGGEST RECOLLECTION OF SAMPLENOTIFIED MARIPOSA 6S ON 10/26/19 AT 1008 BY [id number] on 10/26 AT 1012: Previously reported as 14.5 INR [facility] DISREGARD RESULTSPOSSIBLE CONTAMINATION/ SUGGEST RECOLLECTION OF SAMPLECorrected on 10/26 AT 1012: Previously reported as 1.41 SUGGESTED THERAPEUTIC RANGES USING INR FOR STABILIZED ANTICOAGULATED PATIENTS: STANDARD DOSE THERAPY INR 2.0 3.0 DVT, PE, PREVENT DVT OR EMBOLISM HIGH DOSE THERAPY INR2.5 3.5 PREVENT EMBOLISM FROM MECHANICAL HEART VALVE ID Date Data Source [id number] 10/27/2020 01:28:15 PM EST [facility] Name Value Range Interpretation Code Description Data Sumaya rce(s) Supporting Document(s) SARS COV2 SOURCE [facility] SARS COV 2 BY PCR [facility] Not Detected INTERPRETIVE INFORMATION: S [...] In compliance with this authorization, please visit [email or web address] for more information and to access the [...] collection, transport, storage, and handling. Performed by [facility], [address] [place] [address] www.[email or web address], Kirti Noriega MD, Lab. Director ID Date Data Source [id number] 10/25/2020 09:15:00 AM EST [facility] Name Value Range Interpretation Code Description Data Sumaya rce(s) Supporting Document(s) SARS-CoV-2 by FAN Not Detected [facility] This lab was ordered by [facility] and reported by [facility]. ID Date Data Source [id number] 10/23/2020 04:46:00 PM EST [facility] DATE OF EXAM: 10/23/2020Upper GI SINGLE Contr W Sm Bowel INDICATION: NAUSEA / VOMITING TECHNIQUE: Single contrast upper GI Study with small bowel follow- through was performed via injection of 50 mL Omnipaque 300 contrast through the patient's indwelling jejunostomy tube. Recoater images were obtained. Fluoroscopy Time: 0.5 minutes.Number of images: 10 COMPARISON: CT abdomen pelvis 10/17/2020. FINDINGS: Single AP view appliance mechanic image of the abdomen was obtained. Fusion [...] obstruction or volvulus. Professional interpretation performed at [facility] .End of diagnostic report for accession: [id number] Interpreted: Luna Lay MDTranscribed: 10/23/2020 04:43 PMSigned: 10/23/2020 04:46 PM Luna Lay MD -- N: [phone] [facility] # [id number] [facility] # [id number] Name Value Range Interpretation Code Description Data Sumaya rce(s) Supporting Document(s) ID Date Data Source [id number] 10/22/2020 06:27:08 PM EST [facility] Name Value Range Interpretation Code Description Data Sumaya rce(s) Supporting Document(s) COLOR [facility] APPEARANCE [facility] SPEC GRAV URINE 1.002 (1.003-1.030) L [facility] PH URINE 6.5 (5.0-7.5) [facility] LEUK ESTERASE (NEG) [facility] NITRITE URINE (NEG) [facility] PROTEIN URINE (NEG) A [facility] GLUCOSE URINE (NEG) [facility] KETONE URINE (NEG) [facility] UROBILINOGEN 0.2 mg/dL (0-1.0) [facility] BILIRUBIN URINE (NEG) [facility] BLOOD/HGB URINE 3+ (NEG) A [facility] URINE WBC (0-5) [facility] URINE RBC (0-2) [facility] EPITHELIAL CELLS 1+ [HPF] [facility] ID Date Data Source [id number] 10/22/2020 09:20:55 AM EST [facility] Name Value Range Interpretation Code Description Data Sumaya rce(s) Supporting Document(s) SODIUM 141 mmol/L (136-145) [facility] POTASSIUM 4.3 mmol/L (3.6-5.2) [facility] CHLORIDE 109 mmol/L (100-108) H [facility] CO2 26 mmol/L (22-31) [facility] ANION GAP 6 mmol/L (7-16) L [facility] UREA NITROGEN 16 mg/dL (7-24) [facility] CREATININE 0.72 mg/dL (0.60-1.00) [facility] BUN/CREAT RATIO 22.2 RATIO (10.0-20.0) H [facility] GLUCOSE 100 mg/dL (70-99) H [facility] CALCIUM 8.2 mg/dL (8.4-10.2) L [facility] TOTAL PROTEIN 5.8 g/dL (6.4-8.2) L [facility] ALBUMIN 3.3 g/dL (3.5-4.6) L [facility] GLOBULIN 2.5 g/dL (2.7-4.3) L [facility] ALB/GLOB RATIO 1.3 RATIO [facility] ALKALINE PHOSPHATASE 81 U/L (45-117) [facility] BILIRUBIN,TOTAL 0.6 mg/dL (0.0-1.0) [facility] PLEASE NOTE:Total bilirubin results may be falselyelevated in patients taking Eltrombopag. AST (SGOT) 31 U/L (11-39) [facility] ALT (SGPT) 61 U/L (12-78) [facility] GFR >60 ml/min/1.73m2 (>59) [facility] GFR ( AMER) >60 ml/min/1.73m2 (>59) [facility] GFR INTERPRETATION [facility] --NORMAL KIDNEY FUNCTION OR MILD DISEASE - GFR >OR= 60CHRONIC KIDNEY DISEASE - GFR 15 - 59RENAL FAILURE - GFR <15 Est. GFR calculation based on the MDRDstudy equation, which assumes a steadystate for creatinine. Est. GFR should notbe used for medication dosing. ID Date Data Source [id number] 10/22/2020 08:52:14 AM EST [facility] Name Value Range Interpretation Code Description Data Sumaya rce(s) Supporting Document(s) WBC 3.9 10*3/uL (4.1-11.0) L [facility] [place] RBC 3.83 10*6/uL (4.00-5.40) L [facility] HGB 10.5 g/dL (12.0-16.0) L [facility] HCT 31.6 % (36.0-47.0) L [facility] MCV 82.4 fL (80.0-95.0) [facility] MCH 27.3 pg (27.0-32.0) [facility] MCHC 33.1 g/dL (32.0-36.0) [facility] RDW 21.4 % (10.5-14.5) H [facility] PLT 235 10*3/uL (150-450) [facility] MPV 8.4 fL (7.1-10.7) [facility] NEUT % 64.0 % (35.0-75.0) [facility] LYMPH % 17.5 % (16.0-52.0) [facility] MONO % 12.2 % (0.0-8.0) H [facility] EOS % 5.7 % (0.0-5.0) H [facility] BASO % 0.6 % (0.0-4.0) [facility] NEUT # 2.5 10*3/uL (1.8-7.7) [facility] LYMPH # 0.7 10*3/uL (1.2-4.8) L [facility] MONO # 0.5 10*3/uL (0.0-0.8) [facility] Eosinophils [#/volume] in Blood by Automated count 0.2 10*3/uL (0.0-0 .5) [facility] BASO # 0.0 10*3/uL (0.0-0.2) [facility] ID Date Data Source [id number] 10/21/2020 07:56:18 AM EST [facility] Name Value Range Interpretation Code Description Data Sumaya rce(s) Supporting Document(s) MAGNESIUM 2.3 mg/dL (1.7-2.4) [facility] ID Date Data Source [id number] 10/21/2020 07:56:18 AM EST [facility] Name Value Range Interpretation Code Description Data Sumaya rce(s) Supporting Document(s) PHOSPHORUS 3.8 mg/dL (2.5-4.5) [facility] ID Date Data Source [id number] 10/21/2020 07:56:18 AM EST [facility] Name Value Range Interpretation Code Description Data Sumaya rce(s) Supporting Document(s) SODIUM 142 mmol/L (136-145) [facility] POTASSIUM 4.5 mmol/L (3.6-5.2) [facility] CHLORIDE 113 mmol/L (100-108) H [facility] CO2 24 mmol/L (22-31) [facility] ANION GAP 5 mmol/L (7-16) L [facility] UREA NITROGEN 20 mg/dL (7-24) [facility] CREATININE 0.64 mg/dL (0.60-1.00) [facility] BUN/CREAT RATIO 31.3 RATIO (10.0-20.0) H [facility] GLUCOSE 146 mg/dL (70-99) H [facility] CALCIUM 7.8 mg/dL (8.4-10.2) L [facility] TOTAL PROTEIN 5.0 g/dL (6.4-8.2) L [facility] ALBUMIN 2.8 g/dL (3.5-4.6) L [facility] GLOBULIN 2.2 g/dL (2.7-4.3) L [facility] ALB/GLOB RATIO 1.3 RATIO [facility] ALKALINE PHOSPHATASE 70 U/L (45-117) [facility] BILIRUBIN,TOTAL 0.4 mg/dL (0.0-1.0) [facility] PLEASE NOTE:Total bilirubin results may be falselyelevated in patients taking Eltrombopag. AST (SGOT) 30 U/L (11-39) [facility] ALT (SGPT) 62 U/L (12-78) [facility] GFR >60 ml/min/1.73m2 (>59) [facility] GFR ( AMER) >60 ml/min/1.73m2 (>59) [facility] GFR INTERPRETATION [facility] --NORMAL KIDNEY FUNCTION OR MILD DISEASE - GFR >OR= 60CHRONIC KIDNEY DISEASE - GFR 15 - 59RENAL FAILURE - GFR <15 Est. GFR calculation based on the MDRDstudy equation, which assumes a steadystate for creatinine. Est. GFR should notbe used for medication dosing. ID Date Data Source [id number] 10/21/2020 07:34:07 AM EST [facility] Name Value Range Interpretation Code Description Data Sumaya rce(s) Supporting Document(s) WBC 4.1 10*3/uL (4.1-11.0) [facility] [place] RBC 3.97 10*6/uL (4.00-5.40) L [facility] HGB 10.7 g/dL (12.0-16.0) L [facility] HCT 32.9 % (36.0-47.0) L [facility] MCV 82.7 fL (80.0-95.0) [facility] MCH 27.0 pg (27.0-32.0) [facility] MCNAIR Y MCHC 32.6 g/dL (32.0-36.0) [facility] MCNAIR Y RDW 21.7 % (10.5-14.5) H [facility] MCNAIR Y PLT 251 10*3/uL (150-450) [facility] MPV 8.1 fL (7.1-10.7) [facility] ID Date Data Source [id number] 10/24/2020 03:48:21 PM EST [facility] naty [place] [place], [place] [address]Tel# SURGICAL PATHOLOGY REPORTPatient Name:LELAND DIAZ:1980Received:10/20/2020Accession #:[id number](s) Received: A: Biopsy antrum, r/o H pyloriClinical Diagnosis and History: {Not Provided}DIAGNOSIS:GASTRIC BIOPSY, ANTRUM BENIGN GASTRIC MUCOSA, ANTRAL TYPE, WITH CHANGESOF REACTIVE GASTROPATHY. NO HELICOBACTER IDENTIFIED. GROSS DESCRIPTION: Specimen received in formalin labeled "biopsy antrum" are two irregularpink-paniagua portions of soft tissue measuring 0.3 cm and 0.4 cm in greatestdimension which are submitted in toto for microscopic examination. (1block) jglkashivam/rceReported: 10/24/2020Electronically Signed Out By Moises Song M.D. jzwPathology Associates of GoesselYelitza[address] [place] [address]Eybqtnbas component performed at [facility], Histopathology, [address] [place] [address], [address].Reported at [facility], [address] [place] [address], [id number].This report may include immunohistochemical or in-situ hybridizationresults. Testing was developed and the performance characteristicsdetermined by [facility], as required byCLIA '88. The FDA has determined that approval for spec [facility] use is notnecessary for clinical use. The quality of Hematoxylin and Eosin stainsand as applicable, for all immunohistochemical and/or special stains,including positive and negative controls, were reviewed and consideredappropriate.ICD codes: Z98.84CPT4 codes: A: 11940D Name Value Range Interpretation Code Description Data Sumaya rce(s) Supporting Document(s) ID Date Data Source [id number] 10/21/2020 10:09:00 AM EST [facility] [place], [place] [address]GWHZLZS NAME: COREY DIAZ OF : 1980REPORT: OPERATIONPATIENT NUMBER: [id number] STATUS: IPMEDICAL RECORD NUMBER: [id number] OF ADMISSION: 10/17/2020DATE OF DISCHARGE:ROOM: 00DATE OF PROCEDURE: 10/20/2020PREOPERATIVE DIAGNOSES: Nausea, vomiting, and epigastric abdominal pain robert patient with a complex bariatric history.POSTOPERATIVE DIAGNOSES: Nausea, vomiting, and epigastric abdominal painin a patient with a complex bariatric history.PROCEDURE PERFORMED: Upper endoscopy with antral biopsies.SURGEON: Adrian Son MDANESTHETIST: *------*ESTIMATED BLOOD LOSS: Minimal.BRIEF INDICATIONS FOR PROCEDURE: Briefly, Leland is a 40-year-old whitefemale. She underwent a gastric bypass more than 10 years ago elsewhere. She has had multiple problems after her surgery including episodes ofnausea, vomiting, and abdominal pain associated with marginal ulcers. 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 She hasbeen [facility] to [facility] as well. Ultimately, thepatient decided to follow with Dr. Durbin *------* at the [facility] where she underwent a reversal of her gastric bypass, resection ofa portion of her Nadege limb, and jejunostomy tube. The patient now presentsto the hospital with continued persistent abdominal pain, nausea, andvomiting. CT scan done elsewhere at [facility] showed no acutefindings suggestive of the cause [...] Son, MDDictated: 10/20/2020 14:29DT: 10/20/2020 14:37Job #: [id number]: [facility] computer generated reports are not confirmed orauthenticated unless they are signed by the providerElectronically Authenticated by:ADRIAN SON MD On 10/21/2020 10:09 AM EST Name Value Range Interpretation Code Description Data Sumaya rce(s) Supporting Document(s) ID Date Data Source [id number] 10/25/2020 02:42:50 AM EST [facility] Name Value Range Interpretation Code Description Data [facility](s) Supporting Document(s) SARS COV2 SOURCE Lab [facility] SARS COV 2 BY PCR [facility] Not Detected INTERPRETIVE INFORMATION: S ARS-CoV-2 (COVID-19) [...] In compliance with this authorization, please visit [email or web address] for more information and to access the [...] collection, transport, storage, and handling. Performed by [facility], [address] [place] [address] www.[employer], Kirti Noriega MD, Lab. Director ID Date Data Source [id number] 10/19/2020 10:23:00 AM [facility] [address] [place] [address] PHONE: [phone] FAX: [phone] Name .................. : BASILIO DAN Melissa Acct Number.................. : [id number] ROOM. ................. : TR-03 MR Number ................... : [id number] Stay type ............. : E/R Discharge Date......... ... : Admit Date ......... : 10/17/20 Admit Phys .................... : LORI Date of ....... : 1980 Family Phys ................... : TAJBlendin Phone .................. : [phone] Age ................................ : 40 Film# .................. .:[id number] Sex ................................. : F Unsigned transcriptions are preliminary reports and do not represent a medical or legal document CT ABD & PELVIS W/ IV ONLY [id number] COMPLETE:10/17/20 13:33 KJE 1023 Reason(s): right sided [...] mL Isovue 370 Page 1 of 2 [facility] [address] [place] [address] PHONE: [phone] FAX: [phone] Name .................. : BASILIO DAN Melissa Acct Number.................. : [id number] ROOM. ................. : TR-03 MR Number ................... : [id number] Stay type ............. : E/R Discharge Date......... ... : Admit Date ......... : 10/17/20 Admit Phys .................... : [facility] Date of ....... : 1980 [facility] ................... [facility] Phone .................. : [phone] Age ................................ : 40 Film# .................. .:[id number] Sex ................................. : F Unsigned transcriptions are preliminary reports and do not represent a medical or legal document CT ABD & PELVIS W/ IV ONLY [id number] COMPLETE:10/17/20 13:33 KJE 1023 Reason(s): right sided [...] rce(s) Supporting Document(s) ID Date Data Source [id number] 10/19/2020 08:58:00 AM EST [facility] DATE OF EXAM: 10/19/2020CHEST RADIOGRAPH , [...] reaching mid SVC. Professional interpretation performed at [facility] .End of diagnostic report for accession: [id number] Interpreted: Carmen Frankscribed: 10/19/2020 08:57 AMSigned: 10/19/2020 08:58 AM Carmen Frank DO [facility] # [id number] BILL # [id number] Name Value Range Interpretation Code Description Data Sumaya rce(s) Supporting Document(s) ID Date Data Source [id number] 10/19/2020 08:14:00 AM EST [facility] [address] [place] [address] RESPIRATORY CARE REPORT ==== ---------NAME------- NUMBER SEX AGE ADMIT DISC. XRAY# F/C TYPECHARLEBOIS LELAND Torres [id number] F 40 10/17/20 10/17/20 [id number] E/R DATE OF : 1980 M/R# [id number] PH#: [phone] TR-03 LOCATION: EMERGENCY DEPT EKG [id number] COMP LETE:10/18/20 06:37 ED 93235 PHYSICIAN: LORI Name Value Range Interpretation Code Description Data [facility] rce(s) Supporting Document(s) ID Date Data Source [id number] 10/19/2020 08:09:00 AM EST [facility] Name Value Range Interpretation Code Description Data Sumaya rce(s) Supporting Document(s) SARS-CoV-2 by FAN WALLS This lab was ordered by [facility] and reported by [facility]. ID Date Data Source [id number] 10/19/2020 06:44:48 AM EST [facility] Name Value Range Interpretation Code Description Data Sumaya rce(s) Supporting Document(s) MAGNESIUM 2.0 mg/dL (1.7-2.4) [facility] ID Date Data Source [id number] 10/19/2020 06:44:48 AM EST [facility] Name Value Range Interpretation Code Description Data [facility]aya rce(s) Supporting Document(s) SODIUM 137 mmol/L (136-145) [facility] POTASSIUM 4.4 mmol/L (3.6-5.2) [facility] CHLORIDE 104 mmol/L (100-108) [facility] CO2 25 mmol/L (22-31) [facility] ANION GAP 8 mmol/L (7-16) [facility] UREA NITROGEN 8 mg/dL (7-24) [facility] CREATININE 0.54 mg/dL (0.60-1.00) L [facility] BUN/CREAT RATIO 14.8 RATIO (10.0-20.0) [facility] GLUCOSE 115 mg/dL (70-99) H [facility] CALCIUM 8.7 mg/dL (8.4-10.2) [facility] GFR >60 ml/min/1.73m2 (>59) [facility] GFR ( AMER) >60 ml/min/1.73m2 (>59) [facility] GFR INTERPRETATION [facility] --NORMAL KIDNEY FUNCTION OR MILD DISEASE - GFR >OR= 60CHRONIC KIDNEY DISEASE - GFR 15 - 59RENAL FAILURE - GFR <15 Est. GFR calculation based on the MDRDstudy equation, which assumes a steadystate for creatinine. Est. GFR should notbe used for medication dosing. ID Date Data Source [id number] 10/19/2020 06:29:46 AM EST [facility] Name Value Range Interpretation Code Description Data [facility]aya rce(s) Supporting Document(s) WBC 6.5 10*3/uL (4.1-11.0) [facility] [place] RBC 3.88 10*6/uL (4.00-5.40) L [facility] HGB 10.5 g/dL (12.0-16.0) L [facility] HCT 31.7 % (36.0-47.0) L [facility] MCV 81.5 fL (80.0-95.0) [facility] MCH 27.1 pg (27.0-32.0) [facility] MCHC 33.3 g/dL (32.0-36.0) [facility] RDW 21.7 % (10.5-14.5) H [facility] PLT 271 10*3/uL (150-450) [facility] MPV 7.7 fL (7.1-10.7) [facility] NEUT % 79.8 % (35.0-75.0) H [facility] LYMPH % 8.8 % (16.0-52.0) L [facility] MONO % 11.1 % (0.0-8.0) H [facility] EOS % 0.0 % (0.0-5.0) [facility] BASO % 0.3 % (0.0-4.0) [facility] NEUT # 5.2 10*3/uL (1.8-7.7) [facility] LYMPH # 0.6 10*3/uL (1.2-4.8) L [facility] MONO # 0.7 10*3/uL (0.0-0.8) [facility] Eosinophils [#/volume] in Blood by Automated count 0.0 10*3/uL (0.0-0 .5) [facility] BASO # 0.0 10*3/uL (0.0-0.2) [facility] ID Date Data Source [id number] 10/18/2020 05:15:45 AM EST [facility] Name Value Range Interpretation Code Description Data Sumaya rce(s) Supporting Document(s) SODIUM 144 mmol/L (136-145) [facility] POTASSIUM 3.1 mmol/L (3.6-5.2) L [facility] CHLORIDE 111 mmol/L (100-108) H [facility] CO2 23 mmol/L (22-31) [facility] ANION GAP 10 mmol/L (7-16) [facility] UREA NITROGEN 12 mg/dL (7-24) [facility] CREATININE 0.57 mg/dL (0.60-1.00) L [facility] BUN/CREAT RATIO 21.1 RATIO (10.0-20.0) H [facility] GLUCOSE 142 mg/dL (70-99) H [facility] CALCIUM 9.0 mg/dL (8.4-10.2) [facility] TOTAL PROTEIN 6.3 g/dL (6.4-8.2) L [facility] ALBUMIN 3.8 g/dL (3.5-4.6) [facility] GLOBULIN 2.5 g/dL (2.7-4.3) L [facility] ALB/GLOB RATIO 1.5 RATIO [facility] ALKALINE PHOSPHATASE 89 U/L (45-117) [facility] BILIRUBIN,TOTAL 0.5 mg/dL (0.0-1.0) [facility] PLEASE NOTE:Total bilirubin results may be falselyelevated in patients taking Eltrombopag. AST (SGOT) 9 U/L (11-39) L [facility] ALT (SGPT) 23 U/L (12-78) [facility] GFR >60 ml/min/1.73m2 (>59) [facility] GFR ( AMER) >60 ml/min/1.73m2 (>59) [facility] GFR INTERPRETATION [facility] --NORMAL KIDNEY FUNCTION OR MILD DISEASE - GFR >OR= 60CHRONIC KIDNEY DISEASE - GFR 15 - 59RENAL FAILURE - GFR <15 Est. GFR calculation based on the MDRDstudy equation, which assumes a steadystate for creatinine. Est. GFR should notbe used for medication dosing. ID Date Data Source [id number] 10/18/2020 04:51:03 AM EST [facility] Name Value Range Interpretation Code Description Data [facility] rce(s) Supporting Document(s) WBC 16.6 10*3/uL (4.1-11.0) H [facility] RBC 4.24 10*6/uL (4.00-5.40) [facility] HGB 11.1 g/dL (12.0-16.0) L [facility] HCT 34.6 % (36.0-47.0) [facility] MCV 81.7 fL (80.0-95.0) [facility] MCH 26.2 pg (27.0-32.0) L [facility] MCHC 32.1 g/dL (32.0-36.0) [facility] RDW 22.3 % (10.5-14.5) H [facility] PLT 380 10*3/uL (150-450) [facility] MPV 7.1 fL (7.1-10.7) [facility] ID Date Data Source [id number] 10/23/2020 11:53:50 AM EST [facility] SPECIMEN DESCRIPTION PERIPHERALSP ECIAL REQUESTS NONECULTURE RESULTS NO GROWTH 6 DAYSREPORT STATUS FINAL 10/23/2020 Name Value Range Interpretation Code Description Data [facility] rce(s) Supporting Document(s) ID Date Data Source [id number] 10/22/2020 11:49:00 AM EST [facility] [place] [address]PATIENT NAME: COREY DIAZ OF : 1980REPORT: ADMISSION NOTEPATIENT NUMBER: [id number] STATUS: IPMEDICAL RECORD NUMBER: [id number] OF ADMISSION: 10/17/2020ROOM: [address] [place] [address] COMPLAINT: Abdominal pain.HISTORY OF PRESENT ILLNESS: Ms. Diaz is a 40-year-old female withhistory of bariatric surgery 10 years back in [place], who hasmalabsorption syndrome since then, [facility] [...] present. Bowelsounds are present. No organomegaly appreciated. TRAFFIC CHECKER: Grossly intact. Moving all four limbs. Lymphatic system: No lymphadenopathy appreciated. Musculoskeletal system: Range of motion intact. No obvious deformitynoted.INVESTIGATIONS: CT of the abdomen and pelvis was done at [facility]. Findings: Her lung bases are [...] STAY: More than two inpatient days.DICTATED BY: Mary Law, MDDictated: 10/17/2020 22:06DT: 10/17/2020 22:14Job #: [id number]: Cait Wyatt MdNOTE: [facility] computer generated reports are notconfirmed or authenticated unless they are signed by the providerElectronically Authenticated by:MARY LAW MD On 10/22/2020 11:49 AM EST Name Value Range Interpretation Code Description Data Sumaya rce(s) Supporting Document(s) ID Date Data Source [id number] 10/17/2020 11:18:00 AM EST [facility] 1 OrderSheet [facility] [address] [place] [address] Phone #: ext- [phone] 10/17/2020 11:14 Patient: LELAND DIAZ Sex: F : 1980 Age: 40yWEIGHT:69.8 kg (S) HEIGHT:67 inches (S) BMI:24.1ALLERGIES: Levaquin, NSAID, Sulfa AntibioticsCHIEF COMPLAINT: abdominal painDIAGNOSIS: Abdominal pain, Diarrhea, ProblemLAB ORDERSOrder Description Priority Entered Acknowledged InitialedCBC w Diff STAT 11:10/17/2020 12:03 Lori Thomason Victoria Rachel R.N. ;CMP STAT 11:10/17/2020 12:03 Lori Thomason Victoria Rachel R.N. ;Lipase STAT 11:10/17/2020 12:03 Lori Thomason Victoria Rachel R.N. ;Urinalysis (Clean STAT 11:10/17/2020 14:40 John Thomason) Marcelle Sandoval R.N. ;Beta-HCG, Qual STAT 11:10/17/2020 12:03 PaddySerum Marcelle Sandoval R.N. ;PT/INR STAT 11:10/17/2020 12:03 Lori Thomason Victoria Rachel R.N. ;Amylase STAT 11:10/17/2020 12:03 Lori Thomason Victoria Rachel R.N. ;Lactic Acid STAT 11:32 10/17/2020 12:03 Lori Thomason Victoria Rachel R.N. ;C Difficile Toxin STAT 13:31 10/17/2020 Cancelled: Unable to Collect 17:42Screen Marcelle Sandoval Rachel R.N. ;Lactic Acid STAT 13:57 10/17/2020 14:40 Lori Thomason Victoria Rachel R.N. ;Blood Culture STAT 13:57 10/17/2020 14:40 Paddy, 2 OrderSheet [facility] Emergency Department [address] [place] [address] Phone #: ext- [phone] 10/17/2020 11:14 Patient: LELAND DIAZ Sex: F : 1980 Age: 82yt36l X2 (Sched Marcelle SandovalNCarmelo13:57 10/17/2020) ;Blood Culture STAT 13:57 10/17/2020 15:12 [...] PEL W/ IV STAT 11:45 10/17/2020 12:47 Danial Thomason Only Marcelle Sandoval RCarmeloNCarmelo(Oxygen?(No)) ;(IV?(Yes)) Reason for Study: right sided abdominal painMEDICATION/IV/DRIP/FLUID ORDERSOrder Description Priority Entered Acknowledged InitialedNS IV : Bolus 1000 11:31 10/17/2020 11:55 Paddy,mL, then 150 mL/hr Marcelle Sandoval R.NCarmelo ;Ofirmev IV 1000 mg 11:31 10/17/2020 12:03 Paddy,(NOW x1, Infuse Marcelle Sandoval R.NCarmeloover 15 minutes) ;Phenergan IV 25 11:32 10/17/2020 12:03 Paddy,mg (NOW x1, HIGH Marcelle Sandoval R.NCarmeloALERT ;MEDICATION,NOW) 3 OrderSheet [facility] Emergency Department [address] [place] [address] Phone #: ext- [phone] 10/17/2020 11:14 Patient: LELAND DIAZ Sex: F : 1980 Age: 40yBentyl [...] 10/17/2020 12:45 Paddy,(NOW x1, HIGH Marcelle Sandoval R.NCarmeloALERT ;MEDICATION)Benadryl 25 mg IVP 13:21 10/17/2020 13:23 Paddy,X1 dose: 25 mg Marcelle Sandoval R.N.(NOW x1) ;IV NS 1000 mL 13:29 10/17/2020 13:32 Paddy,Bolus : Bolus 1000 Marcelle Sandoval R.N.mL (X1) ;Toradol IVP 30 mg 14:30 10/17/2020 14:43 Paddy,(NOW) Marcelle Sandoval R.N. ;Reglan IVP 10 mg 14:30 10/17/2020 14:43 Lori Thomason Victoria Rachel R.N. ;Flagyl IVPB 500 15:05 10/17/2020 15:14 Paddy,mg/100mL Marcelle Sandoval R.N. ; Reason for ordering with alerts: Clinical consideration given -- 15:05 10/17/2020 Manjula Sandoval NS : 250 mL/hr 15:39 10/17/2020 15:46 Lori Thomason Victoria Rachel R.N. ;Zofran 4 mg IVP X 1 17:01 10/17/2020 17:16 Paddy,dose: 4 mg (NOW Marcelle Sandoval R.N.x1) ; Reason for ordering with alerts: Clinical consideration given -- 17:10/17/2020 Marcelle SandovalGENERAL ORDERS 4 OrderSheet [facility] Department [address] [place] [address] Phone #: ext- [phone] 10/17/2020 11:14 Patient: LELAND DIAZ Sex: F : 1980 Age: 40yOrder Description Priority Entered Acknowledged InitialedNPO 11:31 10/17/2020 11:46 Lori Thomason Victoria Rachel RGuanakito ;Saline Lock 11:31 10/17/2020 Cancelled: Patient Refusal 12:03 Lori Thomason Victoria Rachel R.N. ;Consult - 15:37 10/17/2020 16:44 Paddy,Hospitalist Marcelle Sandoval R.N. ;[Electronically signed by Moises Thomason R.N. (17:41 10/17/2020)][Electronically signed by Marcelle Santo (18:34 10/17/2020)][Electronically locked by Moises Thomason R.N. (17:41 10/17/2020)] Name Value Range Interpretation Code Description Data Sumaya rce(s) Supporting Document(s) ID Date Data Source [id number] 10/17/2020 11:18:00 AM EST [facility] 1 Medication Reconciliation Report [facility] Department [address] [place] [address] Phone #: ext- [phone] 10/17/2020 11:14 Patient: LELAND DIAZ Sex: F : 1980 Age: 40yWeight: 69.8 kgHeight/Length: 67 in.BMI: 24.1ALLERGIES: Levaquin, NSAID, Sulfa AntibioticsThe patient's Home Medications are listed below:THE FOLLOWING MEDICATIONS NEED TO BE RECONCILED: Ambien Oral 7.5, daily, via J tube, prn,at bedtime Benadryl IV 50mg QDAY for nausea, 2x a day Carafate Oral 1 gm, q4h, via J tube Creon Oral ([id number] unit) 1 capsule, 4x a day, J [...] administered: 11:48 10/17/2020 2 Medication Reconciliation Report [facility] Department [address] [place] [address] Phone #: ext- [phone] 10/17/2020 11:14 Patient: LELAND DIAZ Sex: F : 1980 Age: 40yNS [...] rce(s) Supporting Document(s) ID Date Data Source [id number] 10/17/2020 11:18:00 AM [facility] 1 Medication Administration Record [facility] Department [address] [place] [address] Phone #: ext- [phone] 10/17/2020 11:14 Patient: LELAND DIAZ Sex: F : 1980 Age: 40yWeight: 69.8 kgHeight/Length: 67 inBMI: 24.1ALLERGIES: Levaquin, NSAID, Sulfa Antibiotics Date/Time Medication Administered Medication OrderedStart NS [IV] NS IV : Bolus 1000 mL, then 05192:55 10/17/2020 Dose: IV Fluids mL/hrMoises Thomason R.N. Bolus: 1000 mL over 1 hour(s)---- Dispensed: 1000 mL bagStop Site: #1 right chest17:39 10/17/2020Moises Tohmason R.N.Start offirmev * Ofirmev IV 1000 mg (NOW x1,12:03 10/17/2020 Dose: 1000 mg * IV Infuse over 15 minutes)Moises Thomason R.N.----Stop12:40 10/17/2020Moises Thomason R.N.Given PHENERGAN [IVP] (PROMETHAZINE Phenergan IV 25 mg (NOW x1,12:03 10/17/2020 HCL) HIGH ALERT MEDICATION, NOW)Moises Thomason R.N. Dose: 25 mg IVP Site: #1 right chestGiven BENTYL [PO] (DICYCLOMINE HCL) Bentyl PO 10 mg11:48 10/17/2020 Dose: 10 mg Tablets Moises Barnes R.N.Given DILAUDID [IVP] (HYDROMORPHONE Dilaudid IVP 1 mg (NOW x1, HIGH12:45 10/17/2020 HCL) ALERT MEDICATION)Moises Thomason R.N. Dose: 1 mg IVP Site: #1 right chestGiven BENADRYL [IVP] (DIPHENHYDRAMINE Benadryl 25 mg IVP X1 dose: 2513:23 10/17/2020 HCL) mg (NOW x1)Moises Thomason R.N. Dose: 25 mg IVP Site: #1 right chestStart NS [IV] IV NS 1000 mL Bolus : Bolus 015039:32 10/17/2020 Dose: IV Fluids mL (X1)Moises Thomason [...] #1 right chest 2 Medication Administration Record [facility] Department [address] [place] [address] Phone #: ext- [phone] 10/17/2020 11:14 Patient: LELAND DIAZ Sex: F : 1980 Age: 40yStart FLAGYL [IVPB] (METRONIDAZOLE IN Flagyl IVPB 500 mg/077pM42:12 10/17/2020 NACL)Moises Thomason R.N. Dose: 500 mg IVPB---- Rate: 100 mL/hr [...] rce(s) Supporting Document(s) ID Date Data Source [id number] 10/17/2020 11:18:00 AM [facility] 1 General Instructions [facility] [address] [place] [address] Phone #: ext- [phone] 10/17/2020 11:14 Patient: LELAND DIAZ Sex: F : 1980 Age: 40yAcute right lower quadrant abdominal pain of undetermined cause.Diarrhea.Abnormal tests; (elevated lactic acid).(Electronically signed by Marcelle Sandoval 10/17/2020 18:34) Name Value Range Interpretation Code Description Data Sumaya e(s) Supporting Document(s) ID Date Data Source [id number] 10/17/2020 11:18:00 AM [facility] 1 Clinical Report - Nurses [facility] Department [address] [place] [address] Phone #: ext- [phone] 10/17/2020 11:14 Patient: LELAND DIAZ Sex: F : 1980 Age: 40yTRIAGEArrived [...] and has the urge but cannot go).Treatment [employer]:Took ibuprofen. (0800).SEPSIS SCREEN: SIRS SCREEN NEGATIVE. SEPSIS SCREEN NEGATIVE. No suspected or confirmedsigns of infection present. --11:24 10/17/20 Erika Gillis R.N.11:17 10/17/20. BP: 124/70. MAP: 88. HR: 50. RR: 12. O2 saturation: 100%. Temp: 98.3 F. Pain levelnow: 07/30. --11:24 10/17/20 Erika Gillis R.N.Treatment [employer]:(zofran iv 1 hour ago). --11:26 10/17/20 Erika Gillis R.N.Weight: 69.8 kg stated. Height/Length: 67 inches Per Patient. BMI: 24.1. --11:15 10/17/20 Erika Gillis R.N.MedicationsAmbien Oral 7.5, daily as needed, at bedtime, via J tube. Benadryl IV 50mg QDAY for nausea, 2x a day. Carafate Oral 1 gm, q4h, via J tube. Creon Oral (Capsule Delayed Release Particles 8317-7830 unit) 1 capsule, 4x a day, J [...] Gillis R.N. 2 Clinical Report - Nurses [facility] Department [address] [place] [address] Phone #: ext- [phone] 10/17/2020 11:14 [facility]: [id number] Sex: F : 1980 Age: 40yAllergiesLevaquin.(hives)NSAID.Sulfa Antibiotics.(Anaphylaxis) --10/17/20 Erika Gillis R.N.PROBLEMS:Gastric ulcer.Fever.Constipation.GI Disease.GI Bleeding.Cellulitis.Anemia.Back Injury.Gastroparesis.Sepsis (disorder).Respirat ory Distress.UTI - Urinary Tract Infection.Status Epilepticus.Lung Disease.Hypoxia.Pulmonary Embolism.Malabsorption syndrome. --10/17/20 Erika Gillis R.N.ADDITIONAL SURGERIES:Bariatric Surgery.Bowel resection.Bowel Resection [2016].Bowel Surgery.Cholecystectomy.Gastric bypass.Gastric bypass reversal [08/2019].Gastric Resection [2009].GI bleed clipping.Hysterectomy.J- Tube placement.Life port removed.Lifeport [10/2017].Portacath left chest.Nadege-en-Y gastrojejunostomy [2009].Spinal fusion.Spinal fusion. --10/17/20 Erika Gillis R.N.History 3 Clinical Report - Nurses [facility] Department [address] [place] [address] Phone #: ext- [phone] 10/17/2020 11:14 Patient: LELAND DIAZ [facility]#: [id number] Sex: F : 1980 Age: 40y PAST [...] assessment completed. No skin integrity risk identified. --11:24 10/17/20 Erika Gillis R.N. 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 Precautions taken. Staff notified. Patient taken to isolation room. --11:10/17/20 Erika Gillis R.N. Interventions Identification band on patient. To treatment room. --11:10/17/20 Erika Gillis R.N.PHYSICAL [id number] 10/17/20. To room via stretcher.GENERAL / NEURO / PSYCH: Oriented X 4. Appears anxious. Decreased awareness (drowsy).HEENT: Mucous membranes are pink.RESPIRATORY: Respirations not labored. Breath sounds within normal limits.CVS: Cardiac rhythm: sinus bradycardia. Capillary refill less than 2 seconds.GI / : The patient has had nausea and diarrhea. Emesis noted. ( j tube present). 4 Clinical Report - Nurses [facility] Department [address] [place] [address] Phone #: ext- [phone] 10/17/2020 11:14 Patient: LELAND DIAZ Sex: F : 1980 Age: 40y SKIN: Skin is pale. --12:19 10/17/20 Moises Thomason R.N.NURSING PROGRESS NOTESCardiac monitor and NIBP monitor placed on patient; monitor alarms on. Patient gowned. Reassurancegiven. Two patient identifiers checked. Call light placed in reach. Side rails up x 2. Bed placed inlowest position. Brakes of bed on. Patient ready for evaluation- ED physician notified. --11:10/17/20Erika Gillis R.N. 11:48 10/17/2020 Bentyl (Dicyclomine HCl) [...] Verbalizes understanding (dilluted in 10 cc Ns). --12:10/17/20 Moises Thomason R.N. 12:03 10/17/2020 offirmev * IV 1000 mg --12:10/17/20 Moises Thomason R.N. EKG time: (11:19 10/17/2020). EKG was performed by a nurse and shown to the ED physician. --12:19 10/17/20 Moises Thomason R.N. 12:19 10/17/20. BP: 122/80. MAP: 94. HR: 53. RR: 24. O2 saturation: 99%. Pain level now: 05/30. --12:20 10/17/20 Moises Thomason R.N. 12:45 10/17/2020 Dilaudid (HYDROmorphone [...] Thomason R.N. 13:04 10/17/20. Patient transported to [place] by stretcher with monitor, IV, mask, nurse and tech. --13:19 10/17/20 Moises Thomason R.N. 5 Clinical Report - Nurses [facility] Department [address] [place] [address] Phone #: ext- [phone] 10/17/2020 11:14 Patient: LELAND DIAZ Sex: F : 1980 Age: 40y13:14 10/17/20. Patient returned from CT by stretcher with monitor, IV, mask, nurse and tech. --13: Moises Thomason R.N.Reassessment after medication administered. Pain still present but improving. Nausea still present.--13:10/17/20 Moises Thomason R.N.13:10/17/20. BP: 112/95. MAP: 100. HR: 77. RR: 18. O2 saturation: 98%. Pain level now: 6/10.--13:22 10/17/20 Moises Thomason R.N.13:10/17/2020 Benadryl (diphenhydrAMINE HCl) IVP 25 mg given [...] medication. Verbalizes understanding. --14:43 10/17/20 Moises Thomason R.NCarmelo14:48 10/17/20. BP: 121/90. MAP: 100. HR: 56. RR: 18. O2 saturation: 99%. Pain level now: 05/30.--14:49 10/17/20 Moises Thomason RCarmeloNCarmeloReassessment after medication administered. Pain still present. Nausea still present. Overall patientstatus is the same- she states feels the same. --14:49 10/17/20 Moises Thomason R.N.11:48 10/17/2020 Bentyl PO 10 mg was refused by patient because of nausea. --15:17 10/17/20 Nicolas Thomason Clinical Report - Nurses [facility] Department [address] [place] [address] Phone #: ext- [phone] 10/17/2020 11:14 Patient: LELAND DIAZ Sex: F : 1980 Age: 40y [...] at departure: improved and stable. Transferred to [facility]. Report was given to a nurse [...] 100%. Temp: 98.9 F. Pain level now: 6/10. --17:03 10/17/20 Moises Thomason R.N. 17:37 10/17/20. BP: 135/77. MAP: 96. HR: 81. RR: 22. O2 saturation: 100%. Temp: 98.7 F. Pain level now: 6/10. --17:38 10/17/20 Moises Thomason R.N. Departure time: 17:38 10/17/2020. Transported via ambulance by news department intern with monitor, IV and mask. --17:38 10/17/20 Moises Thomason R.N. 12:40 10/17/2020 Offirmev IV Discontinued: bag #1 completed upon discharge. Total amount infused: 50 mL. IV patency established. IV site checked: no pain, redness, or swelling. IV flushed thoroughly. --17:40 10/17/20 Moises Thomason R.N. 7 Clinical Report - Nurses [facility] Department [address] [place] [address] Phone #: ext- [phone] 10/17/2020 11:14 Patient: LELAND DIAZ Sex: F : 1980 Age: 40y [...] rce(s) Supporting Document(s) ID Date Data Source [id number] 10/17/2020 11:18:00 AM [facility] 1 Clinical Report - Physicians/Mid Levels [facility] Department [address] [place] [address] Phone #: ext- [phone] 10/17/2020 11:14 Patient: LELAND DIAZ Sex: F : 1980 Age: 40y [...] Pain. 2 Clinical Report - Physicians/Mid Levels [facility] Department [address] [place] [address] Phone #: ext- [phone] 10/17/2020 11:14 Patient: LELAND DIAZ Sex: F : 1980 Age: 40y Additional Surgeries: Bariatric Surgery. Bowel resection. Bowel Resection [2015]. Bowel Surgery. Cholecystectomy. Gastric bypass. Gastric bypass [...] tube. Creon Oral (Capsule Delayed Release Particles [id number] unit) 1 capsule, 4x a day, J [...] F. 3 Clinical Report - Physicians/Mid Levels [facility] Department [address] [place] [address] Phone #: ext- [phone] 10/17/2020 11:14 Patient: LELAND DIAZ Sex: F : 1980 Age: 40y Pain [...] Interpretation time: 11:38 10/17/2020.CT Abdomen - Pelvis: colletteDaquan Mike - 10/17/2020 1:20:19 PMComparison is made [...] # _[id number] 10/17/20.1549.TAD. KIT EXP DATE _01.26.21 10/17/20.TAD. NORMAL RANGE IS NOT DETECTEDNEGATIVE RESULTS SHOULD BE TREATED PREUMPTIVE AND, IF INCONSISTENT WITHCLINICAL SIGNS AND SYMPTOMS OR NECESSARY FOR PATIENT MANAGEMENT, SHOULD BETESTED WITH DIFFERENT AUTHORIZED OR CLEARED MOLECULAR TESTS . NEGATIVE RESULTSDO NOT PRECLUDE SARS-CoV-2 INFECTION AND SHOULD NOT BE USED THE SOLE BASISFOR PATIENT MANAGEMENT DECISIONS. 4 Clinical Report - Physicians/Mid Levels [facility] Department [address] [place] [address] Phone #: ext- [phone] 10/17/2020 11:14 Patient: LELAND DIAZ Sex: F : 1980 Age: 40yLactic Acid: (LUISANA: 10/17/2020 14:38) ( MsgRcvd 10/17/2020 15:25) Final results Test Result Flag Units (Reference) LACTIC ACID 2.7 H MMOL/L (0.2 - 2.2)CT Abd PEL W/ IV Contrast Only: (LUISANA: 10/17/2020 11:45) ( MsgRcvd 10/17/2020 14:08) In ProgressCT ABDReason(s): right sided abdominal painTRANSPORTATION: S IV? IV?(Yes) O2? Oxygen?(No) Ro Exam CT ABD //T// PELVIS W/ IV ONLY [id number] [place] [address] PHONE: [phone] FAX: [phone] Name .................. : BASILIO Torres [facility].................. : [id number] ROOM. ................. : TR-03 MR Number ................... : [id number] Stay type ............. : E/R Discharge Date......... ... : Admit Date ......... : 10/17/20 [facility] .................... [facility] Date of ....... : 1980 Family Phys ................... : MITA ROCHE Phone .................. : [phone] Age ................................ : 40 Film# .................. .:[id number] Sex ................................. : F Unsigned transcriptions are [...] 370 5 Clinical Report - Physicians/Mid Levels [facility] Department [address] [place] [address] Phone #: tnt- [phone] 10/17/2020 11:14 Patient: LELAND DIAZ Sex: F : 1980 Age: 40y Page 1of 2 [facility] [address] [place] [address] PHONE: [phone] FAX: [phone] Name .................. : BASILIO Torres Acct Number.................. : [id number] ROOM. ................. : TR03 MR Number ................... : [id number] Stay type ............. : E/R Discharge Date......... ... : Admit Date ......... : 10/17/20 Admit Phys .................... : [facility] Date of ....... : 1980 Family Phys ................... : MITA ROCHE Phone .................. : [phone] Age ................................ : 40 Film# .................. .:[id number] Sex ................................. : F Unsigned transcriptions are preliminary reports and do not represent a medical or legal document CT ABD Reason(s): right sided abdominal pain Method of administration: Intravenous Examination dictated by TROY Cross. Examination was reviewed with Kaden Carrillo MD, radiologist at the time of this dictation. Electronically Reviewed and Signed By DCTNAME , SIGNDATE, KGG Transcribe Initials: SSR, Transcribe Date: 10/17/20 13:56, Dictation Date: <<REPDIST>> Page 2of 2Lactic Acid: (LUISANA: 10/17/2020 12:05) ( MsgRcvd 10/17/2020 12:43) Final results Test Result Flag Units (Reference) LACTIC ACID 2.3 H MMOL/L (0.2 - 2.2)CBC w Diff: (LUISANA: 10/17/2020 12:05) ( MsgRcvd 10/17/2020 12:15) Final results Test Result Flag Units (Reference) CBC W/AUTOMATED DIFF COMPLETE BLOOD COUNT WBC 11.0 10/uL (4.2 - 11.0) RBC 5.07 10/uL (4.20 - 5.40) HEMOGLOBIN 13.4 g/dL (12.0 - 16.0) HEMATOCRIT 41.6 % (37.0 - 47.0) MCV 82.1 fL (81.0 - 101) 6 Clinical Report - Physicians/Mid Levels [facility] Department [address] [place] [address] Phone #: ext- [phone] 10/17/2020 11:14 Patient: LELAND DIAZ Sex: F : 1980 Age: 40y [...] Male GFR Interprentation 20-49 yrs >60 mL/min Dyaeat34-92 yrs >56 mL/min Normal 60-69 yrs >49 mL/min Normal 70-79yrs>42 mL/min Normal 80 and above >35 mL/min Normal Female GFRInterpretation 20-39 yrs >60 mL/min Normal 40-49 yrs >58 mL/minNormal 50-59 yrs >51 mL/min Normal 60-69 yrs >45 mL/min Slhdrh90-02 yrs >39 mL/min Normal 80 and above >32 mL/min NormalLipase: (LUISANA: 10/17/2020 12:05) ( MsgRcvd 10/17/2020 12:42) Final results Test Result Flag Units (Reference) LIPASE 29 U/L (13 - 60) 7 Clinical Report - Physicians/Mid Levels [facility] Department [address] [place] [address] Phone #: ext- [phone] 10/17/2020 11:14 Patient: [facility]IA[id number] Sex: F : 1980 Age: 40y Urinalysis: (LUISANA: 10/17/2020 14:20) ( MsgRcvd 10/17/2020 15:09) Final results Test Result Flag [...] Beta-HCG, Qual Serum: (LUISANA: 10/17/2020 12:05) ( [facility] 10/17/2020 12:29) Final results Test Result Flag Units (Reference) HCG SERUM QUAL NEGATIVE (NORMAL: NEGAT HCG SERUM QL REENTER NEGATIVE (NORMAL: NEGAT { KIT LOT # [id number] ){ KIT EXP DATE [id number] ){ PROCEDURAL CONTROL VALID ) PT/INR: (LUISANA: 10/17/2020 12:05) ( [facility] 10/17/2020 12:23) Final results Test Result Flag Units (Reference) PROTIME 12.7 SECONDS (11.0 - 15.5) INR 0.91 L (0.93 - 1.23) \\BLDo\\INR INTERPRETATION\\BLDx\\ Therapeutic range for Coumadin and related oral anticoagulants. - International Normalized Ratio (INR): 2.0 - 3.0 for Venous Thrombosis, Pulmonary Embolus, Tissue heart valves, Acute ND, Atrial Fibrillation, Valvular heart disease and recurrent Systemic Embolism. -International Normalized Ratio (INR): 2.5 - 3.5 for M echanical Prosthetic valve. Amylase: (LUISANA: 10/17/2020 12:05) ( [facility] 10/17/2020 12:42) Final results Test Result Flag Units (Reference) AMYLASE 67 U/L (30 - 110) Abdomen Multiview: (LUISANA: 10/17/2020 11:31) ( [facility] 10/17/2020 11:45) Canceled Reason(s): hx of bowel resection Reason(s): hx of bowel resection TRANSPORTATION: S IV? O2? Oxygen?(No) Room: ED. 8 Clinical Report - Physicians/Mid Levels [facility] Department [address] [place] [address] Phone #: ext- [phone] 10/17/2020 11:14 Patient: LELAND DIAZ Sex: F : 1980 Age: 40yPROGRESS [...] another hospital 16:27 10/17/20. discussed case with [facility], DR Clark who accepted the patient. Critical [...] to transfer explained to patient. Transferred to [facility]. 16:30. UTI (catheter associated) was not [...] 10/17/2020 18:34) 9Clinical Report - Physicians/Mid Levels [facility] Department [address] [place] [address] Phone #: ext- [phone] 10/17/2020 11:14 Patient: LELAND ARORA Sex: F : 1980 Age: 40y Name Value Range Interpretation Code Description Data Sumaya rce(s) Supporting Document(s) ID Date Data Source [id number] 10/17/2020 04:52:39 PM [facility] Name Value Range Interpretation Code Description Data Sumaya rce(s) Supporting Document(s) Progress Note [facility] NVACJi2uLzQZRjZz34/ZTVbwIGOko0HwSJbmBSf0VTowBPGgB5TbFND3kY7iLIM9VNwIYfLdHaGiSbY3 [facility] [file] ICAgICAgICAgICAgICAgICAgICAgICAgICAgICAgICAgICAgICAgICAgICAgICAgICAgICAgICAgICAg WNKrHEOwXQWqSLOyXWHgYKOaHL1TVPWaDRPfYTTvENWxCEVySALhMUPuPGSfODJzGYAeUINhUPQfKGHh ICAgICAgICAgICAgICAgICAgICAgICAgICAgICAgIC MrMLWrVKTtWQJdVOMvBMEiNGJlXJYiNRLjDXObIO4VYFVgCVViFHGdQWZeKIYhQRWfGCDtGKMqKYCiRV AgICAgICAgICAgICAgICAgICAgICAgICAgICAgICAgICAgICAgICAgICAgICAgICAgICAgICAgICAgIC RmNMLlQQBbILLqXP9GYPYeTUBoDCQvGRClRJEaDDDd ICAgICAgICAgICAgICAgICAgICAgICAgICAgICAgICAgICAgICAgICAgICAgICAgICAgICAgICAgICAg NZTmOEFzHGThSKEtZSZhHBNdQBRmDR4CLKZlFYVjKCMtTPThNSSbJBUjJYFnPWSzFFMuRVXaXKNzGODe ICAgICAgICAgICAgICAgICAgICAgICAgICAgICAgIC LtNIAvUQSnSMGrJXZuVYHvNCYlNLWfULAwJPPnSIYuSY2AIYOoQQPrDEXjVOUpZMYwUVMuKPMpSXGkZV AgICAgICAgICAgICAgICAgICAgICAgICAgICAgICAgICAgICAgICAgICAgICAgICAgICAgICAgICAgIC KzLGFyZAPgHREfMXXjGM2HNLQtLQRjYNSeHHLuQFXk ICAgICAgICAgICAgICAgICAgICAgICAgICAgICAgICAgICAgICAgICAgICAgICAgICAgICAgICAgICAg DPZtZHTrPSNaZLHaSCVeUCOiUIJlROBwCY6XWOFdJFObTIKvSZSvGNEhUNZyNFTaJZFlYMAhVYNsPSEk ICAgICAgICAgICAgICAgICAgICAgICAgICAgICAgIC OpXZSxLMJkXQWjHQLpCLAcHMBcAXLvIHPvCKAkZSGoVWXnXX1WQAEwZFAlJWPoEOBrMNChYDYhXZOhDD AgICAgICAgICAgICAgICAgICAgICAgICAgICAgICAgICAgICAgICAgICAgICAgICAgICAgICAgICAgIC SwGLCjWLHdJNIvUVFuEIZsJV3UKLXyHHIcQZBeCVWf ICAgICAgICAgICAgICAgICAgICAgICAgICAgICAgICAgICAgICAgICAgICAgICAgICAgICAgICAgICAg QROlQGLtMPPwDHVsUHSdGINhNTErVDLjXPRpLV0INR64vVBuc9G1HTVrAT0eeag/Xt7ICYcjfrWilIBf JX7CKmAwHZ8pgy4ELtWsDR5ybx8AVXoXDvZlV2N8hV SsTXOnOKDRYlDeL35cLZilGm58DQcyNUGmZdWfXLm5Ae2MYtUvO6txZXErSyR3NJOhBtTsFKqvNS8Ua1 VudCAxDQo+Gb7GCN0gc2RcXQuzPJDzVZ4cmq5HKAgHRyGfI1TqtdS3WCF4KFNkJp6AQCQeXUQddHNeDS FiDCRXZyVlN9JvsP77DOOOMa1+DQplbmRvYmoNCjE1 TDHip8DkBXn4NB7EBGBdTMl2xJEfECWeF1Ade5FuBs43GDJqAeynECD6bvbntZCzV8GhdEJ3PSXXNiGh hERvHz7sZU7iCYWnJOYeTgL3WYBCOH4HHGTcOWOebLKdRHNkTCDHNY3HLTcpZPH0LCTrapWgoPKbABes FC7HHQBdktLlNRXwQJWZYLa+Lj9JYN0bu5UrKErmPf ReOO3tct9HIKnIGmMwO6L7lQFkY3B5GKiaBi9JIHMbQYVuFJLbQQZIKWzsPI6DMW9znjR7AY8UsKYlVX EwHDMorWAlKLd1I73dwWImPMfsJY1PGNM+Savannah+Yu4YICHmDLLtEFMxZuEjPHJBMwCkP4RiS6FUk2WmA7 NaXQ06xSzkxjBeMQceQZ5IVO8xMSFpNYDKDK7QcWMz xB5uvkUsFNTaRGFEZhAsM20ktLWyOYRrCJJjGGCuPa9PBXZnW6XxgmMdeTyxrlDmHGBdJACJRK3VVGfc kbCndSUagYpwRU40xCjtEJ3VZk2MIeBbRZ1pxf5NmDNkWc2XIRQfOu2DIPIjZHBbUZXbMAU6QHFsRwFh APflDPMhZKNvHAF1FKSdCMRmRH2ISgOkXZUeEQJ5Jm ImXKGaQIAbyx6LSZUnXZEkPqO9NEMwRPXuLSOvPUdsADDsPOCrRWW1HCEsNKDqPQ5LQvOfKLTzOJB6Um XiWKVeTPCcar4AZIDlZZGjYcA1DMUyMYXiIXLcZImqOHAwNMMxLBL4OIUkFNFpAZ4ITmNwQZIwWBLyEr YsZPAhQJFamy8RBTIfHJSqWaQfYBFcCHJpETRjLNja FPJbQSV1XmUvUSAqMKByOS9ADwNwIHXqPIK2CkEvVRTvECHeqc5HGOYvWUVbONz0QTWmAJQpDJXhOCje PJXzFWP7FCN9NIVuICMkOC5JYxBpTKJjIXF0PQMhSFCwKFXvoz3DBYXiUYWkGaL7SRKpLYQlSPIwANed DLUeLPX8ROP8OOGxXZFdBU8GLjLlOLcfZKCPLav4NX whB5n1JADpDh9AS9Whc9TyXDLhURCGYFpgXN6coeIeAXNfVi8OD3iIRig6IRP1DcYeIjP8QpPtBNRhKN udXZRdKsOkWGTrOmVpFe3xGKi7BXbrN2QnCQOlH3FoP5D1ATSsLZUpUkG9JABnJWZ3RbTpRN3VRv9ZOp M3ELJ5zSThCk4TTlS9LL6OBKQPZ4DTDe== ID Date Data Source [id number] 10/17/2020 03:15:00 PM EST [facility] Name Value Range Interpretation Code Description Data Sumaya rce(s) Supporting Document(s) COVID-19 [facility] This lab was ordered by [facility] and reported by [facility]. ID Date Data Source [id number] 10/17/2020 03:15:00 PM EST [facility] Name Value Range Interpretation Code Description Data Sumaya rce(s) Supporting Document(s) COVID-19 [facility] This lab was ordered by [facility] and reported by [facility]. ID Date Data Source [id number] 10/17/2020 03:49:00 PM EST [facility] Name Value Range Interpretation Code Description Data Sumaya rce(s) Supporting Document(s) COVID-19 NOT DETECTED [facility] COVID-19 REENTER NOT DETECTED [facility] { PROCEDURAL CONTROL VALID KIT LOT [...] PATIENT MANAGEMENT DECISIONS. ID Date Data Source [id number] 10/17/2020 03:24:00 PM EST [facility] Name Value Range Interpretation Code Description Data Sumaya rce(s) Supporting Document(s) Lactate [Moles/volume] in Serum or Plasma 2.7 MMOL/L 0.2 - 2.2 H [facility] ID Date Data Source [id number] 10/17/2020 03:08:00 PM EST [facility] Name Value Range Interpretation Code Description Data Sumaya rce(s) Supporting Document(s) [facility] yellow NORMAL: Yellow [facility] CLARITY clear NORMAL: Clear [facility] Specific gravity of Urine by Test strip 1.010 1.001 - 1.030 [facility] pH 5 5 - 9 [facility] Glucose [Mass/volume] in Urine by Test strip NORM NORMAL: Negat lucia [facility] Bilirubin.total [Presence] in Urine by Test strip NEG NORMAL: Negative [facility] Ketones [Presence] in Urine by Test strip 50 NORMAL: Negative A [facility] Protein [Mass/volume] in Urine by Test strip 100 NORMAL: Negat lucia A [facility] Nitrite [Presence] in Urine by Test strip NEG NORMAL: Negative [facility] BLOOD NEG NORMAL: Negative [facility] Leukocyte esterase [Presence] in Urine by Test strip NEG DELANO L: Negative [facility] Urobilinogen [Mass/volume] in Urine by Test strip NOR less tenisha n 1.0 mg/dL [facility] MICROSCOPIC See Below [facility] WBC 1 - 3 NORMAL: NONE SEEN [facility] Erythrocytes [#/volume] in Urine by Test strip 1 - 3 NORMAL: NON E SEEN [facility] EPITHELIAL FEW NORMAL: NONE SEEN [facility] Bacteria [Presence] in Urine sediment by Light microscopy Tr nick NORMAL: NONE SEEN [facility] Mucus [Presence] in Urine sediment by Light microscopy Trace NORMAL: NONE SEEN [facility] ID Date Data Source [id number] 10/22/2020 06:11:00 PM EST [facility] [address] Name Value Range Interpretation Code Description Data Sumaya rce(s) Supporting Document(s) Bacteria identified in Blood by Culture [facility] NO GROWTH AFTER 5 DAYS ID Date Data Source [id number] 10/23/2020 07:59:00 PM [facility] Name Value Range Interpretation Code Description Data Sumaya rce(s) Supporting Document(s) CULTURE BLOOD [facility] _CULTURE BLOOD_ [place] [address] CLIA# [id number] SEE SCANNED REPORT{ PRELIM ID Date Data Source [id number] 10/23/2020 07:59:00 PM [facility] Name Value Range Interpretation Code Description Data Sumaya rce(s) Supporting Document(s) CULTURE BLOOD [facility] _CULTURE BLOOD_ TEST PERFORM ED AT [facility] [address] [place] [address] IA# [id number] SEE SCANNED REPORT{ PRELIM ID Date Data Source [id number] 10/17/2020 12:43:00 PM [facility] Name Value Range Interpretation Code Description Data Sumaya rce(s) Supporting Document(s) Lactate [Moles/volume] in Serum or Plasma 2.3 MMOL/L 0.2 - 2.2 H [facility] ID Date Data Source [id number] 10/17/2020 12:42:00 PM [facility] Name Value Range Interpretation Code Description Data Sumaya rce(s) Supporting Document(s) Amylase [Enzymatic activity/volume] in Serum or Plasma 67 U/L 30 - 110 [facility] ID Date Data Source [id number] 10/17/2020 12:42:00 PM [facility] Name Value Range Interpretation Code Description Data Sumaya rce(s) Supporting Document(s) Lipase [Enzymatic activity/volume] in Serum or Plasma 29 U/L 13 - 60 [facility] ID Date Data Source [id number] 10/17/2020 12:42:00 PM [facility] Name Value Range Interpretation Code Description Data Sumaya rce(s) Supporting Document(s) COMPREHENSIVE METABOLIC PANEL [facility] COMPREHENSIVE METABOLIC PANEL Sodium [Moles/volume] in Serum or Plasma 140 mEq/L 134 - 153 [facility] Potassium [Moles/volume] in Serum or Plasma 3.6 mEq/L 3.6 - 5.0 [facility] Chloride [Moles/volume] in Serum or Plasma 102 mEq/L 98 - 107 [facility] Carbon dioxide, total [Moles/volume] in Serum or Plasma 24 MEQ/L 22 - 30 [facility] Glucose [Mass/volume] in Serum or Plasma 197 MG/DL 65 - 110 H [facility] BUN 20 MG/DL 7 - 21 [facility] Creatinine [Mass/volume] in Serum or Plasma 0.6 MG/DL 0.7 - 1.5 L [facility] BUN/CREAT 33 8 - 27 H [facility] Protein [Mass/volume] in Serum or Plasma 7.7 G/DL 6.3 - 8.2 [facility] Albumin [Mass/volume] in Serum or Plasma 4.8 G/DL 3.9 - 5.0 [facility] Globulin [Mass/volume] in Serum by calculation 2.9 GM/DL 2.4 - 3.2 [facility] A/G RATIO 1.7 0.8 - 2.0 [facility] Calcium [Mass/volume] in Serum or Plasma 10.0 MG/DL 8.4 - 10.2 [facility] Bilirubin.total [Mass/volume] in Serum or Plasma <0.7 MG/DL 0.2 - 1.3 [facility] Alkaline phosphatase [Enzymatic activity/volume] in Serum or Plasma 114 U/L 38 - 126 [facility] Aspartate aminotransferase [Enzymatic activity/volume] in Serum or Plasma 19 U/L 5 - 40 [facility] Alanine aminotransferase [Enzymatic activity/volume] in Seru m or Plasma 22 U/L 7 - 56 [facility] Anion gap 3 in Serum or Plasma 14.0 mmol/L 8.0 - 16.0 [facility] AGE 40 yrs [facility] G[facility] >60 mL/min [facility] AFR AMER GFR >60 mL/min [facility] Male GFR In terprentation [...] >32 mL/min Normal ID Date Data Source [id number] 10/17/2020 12:28:00 PM EST [facility] Name Value Range Interpretation Code Description Data Sumaya rce(s) Supporting Document(s) HCG SERUM QUAL NEGATIVE NORMAL: NEGATIVE [facility] HCG SERUM QL REENTER NEGATIVE NORMAL: NEGATIVE [facility] { KIT LOT # [id number] ){ KIT EXP DATE [id number] ){ PROCEDURAL CONTROL VALID ) ID Date Data Source [id number] 10/17/2020 12:23:00 PM EST [facility] Name Value Range Interpretation Code Description Data Sumaya rce(s) Supporting Document(s) Prothrombin time (PT) 12.7 SECONDS 11.0 - 15.5 [facility] INR in Platelet poor plasma by Coagulation assay 0.91 0.93 - 1. 23 L [facility] \\BLDo\\INR INTERPRETATION\\BLDx\\ Therapeutic range for Coumadin and related oral anticoagulants. - International Normalized Ratio (INR): 2.0 - 3.0 for Venous Thrombosis, Pulmonary Embolus, Tissue heart valves, Acute ND, Atrial Fibrillation, Valvular heart disease and recurrent Systemic Embolism. -International Normalized Ratio (INR): 2.5 - 3.5 for Mechanical Prosthetic valve. ID Date Data Source [id number] 10/17/2020 12:15:00 PM [facility] Name Value Range Interpretation Code Description Data Sumaya e(s) Supporting Document(s) CBC W/AUTOMATED DIFF [facility] COMPLETE BLOOD COUNT Leukocytes [#/volume] in Blood by Automated count 11.0 10^3/uL 4.2 - 11.0 [facility] Erythrocytes [#/volume] in Blood by Automated count 5.07 10^6/uL 4. 20 - 5.40 [facility] Hemoglobin [Mass/volume] in Blood 13.4 g/dL 12.0 - 16.0 [facility] Hematocrit [Volume Fraction] of Blood by Automated count 41.6 % 3 7.0 - 47.0 [facility] Erythrocyte mean corpuscular volume [Entitic volume] by Auto mated count 82.1 fL 81.0 - 101 [facility] Erythrocyte mean corpuscular hemoglobin [Entitic mass] by Automated count 26.4 pg 27.0 - 34.0 L [facility] Erythrocyte mean corpuscular hemoglobin concentration [Mass/volume] by Automated count 32.2 g/dL 31.0 - 36.0 [facility] Erythrocyte distribution width [Ratio] by Automated count 19.3 % 11.5 - 14.5 H [facility] Platelets [#/volume] in Blood by Automated count 496 10^3/uL 150 - 45 0 H [facility] Platelet mean volume [Entitic volume] in Blood by Automated count 9.2 fL 7.4 - 10.4 [facility] Neutrophils/100 leukocytes in Blood by Automated count 92.0 % 37. 0 - 80.0 H [facility] Lymphocytes/100 leukocytes in Blood by Manual count 4.9 % 25.0 - 40.0 L [facility] Monocytes/100 leukocytes in Blood by Automated count 2.4 % 3.0 - 8.0 L [facility] Eosinophils/100 leukocytes in Blood by Automated count 0.0 % 0.0 - 7.0 [facility] Basophils/100 leukocytes in Blood by Automated count 0.3 % 0.0 - 2.5 [facility] %IG 0.4 % 0.0 - 0.0 H [facility] %NRBC 0.0 % 0.0 - 0.0 [facility] Neutrophils [#/volume] in Blood by Automated count 10.08 10^3/uL 2. 00 - 6.90 H [facility] Lymphocytes [#/volume] in Blood by Automated count 0.54 10^3/uL 0.60 - 3.40 L [facility] Monocytes [#/volume] in Blood by Automated count 0.26 10^3/uL 0.00 - 0.90 [facility] Eosinophils [#/volume] in Blood by Automated count 0.00 10^3/uL 0.00 - 0.70 [facility] Basophils [#/volume] in Blood by Automated count 0.03 10^3/uL 0.00 - 0.20 [facility] #IG 0.04 10^3/uL 0.00 - 0.10 [facility]spital #NRBC 0.00 10^3/uL 0.00 - 0.00 [facility] MANUAL DIFF NOT INDICATED [facility] RBC MORPH NOT INDICATED [facility] ID Date Data Source [id number] 10/09/2020 01:50:00 PM EST [facility] ([facility]) Name Value Range Interpretation Code Description Data Sumaya rce(s) Supporting Document(s) Inr 0.86 [facility] ([facility]) see progress note by Angelica Prothrombin Time 11.9 s 12.5-14.3 [facility] ([facility]) see progress note by Angelica ID Date Data Source [id number] 10/09/2020 01:50:00 PM EST [facility] ([facility]) Name Value Range Interpretation Code Description Data Sumaya rce(s) Supporting Document(s) Fibrin D-dimer FEU [Mass/volume] in Platelet poor plasma 368.43 ng/mL [facility] ([facility]) see progress note by Angelica ID Date Data Source [id number] 10/09/2020 01:50:00 PM EST [facility] ([facility]) Name Value Range Interpretation Code Description Data Sumaya rce(s) Supporting Document(s) Blood Culture Laboratory test result [facility] ([facility]) see progress note by Angelica ID Date Data Source [id number] 10/09/2020 01:50:00 PM EST [facility] ([facility]) Name Value Range Interpretation Code Description Data Sumaya rce(s) Supporting Document(s) Lactate [Mass/volume] in Serum or Plasma 1.7 mmol/L 0.4-2.0 [facility] ([facility]) see progress note by Angelica ID Date Data Source [id number] 10/09/2020 01:50:00 PM EST [facility] ([facility]) Name Value Range Interpretation Code Description Data Sumaya rce(s) Supporting Document(s) White Blood Count 5.4 10 4.0-10.0 [facility] ([facility]) see progress note by Angelica Red Blood Count 4.80 10 4.00-5.40 [facility] ([facility]) see progress note by Angelica Hemoglobin 12.1 g/dL 12.0-15.5 [facility] ([facility], [facility]) see progress note by Angelica Hematocrit 40.7 % 36.0-47.0 [facility] ([facility]) see progress note by Angelica Mean Corpuscular HGB Conc 29.7 g/dL 32.0-36.5 [facility] ([facility]) see progress note by Angelica Mean Corpuscular Volume 84.8 fl 80.0-96.0 M [facility] ([facility], [facility]) see progress note by Angelica Mean Corpuscular Hemoglobin 25.2 pg 27.0-33.0 [facility] ([facility], [facility]) see progress note by Angelica Red Cell Distribution Width 18.8 % 11.5-14.5 [facility] ([facility], [facility]) see progress note by Angelica Platelet Count, Automated 280 10 150-450 [facility] ([facility], [facility]) see progress note by Angelica Lymph % 19.3 % 24.0-44.0 [facility] ([facility]) see progress note by Angelica Neutrophils % 68.6 % 36.0-66.0 [facility] ([facility], [facility]) see progress note by Angelica Dinwiddie % 5.9 % 0.0-5.0 [facility] ([facility]) see progress note by Angelica Eos % 5.0 % 0.0-3.0 [facility] ([facility]) see progress note by Angelica Nucleated Red Blood Cell % 0.0 % 0-0 [facility] ([facility], [facility]) see progress note by Angelica Baso % 0.6 % 0.0-1.0 [facility] ([facility]) see progress note by Angelica Immature Granulocyte % 0.6 % 0-3.0 [facility] ([facility], [facility]) see progress note by Angelica Lymph # 1.1 10 1.5-5.0 [facility] ([facility]) see progress note by Angelica Neutrophils # 3.7 10 1.5-8.5 [facility] ([facility], [facility]) see progress note by Angelica Eos # 0.3 10 0.0-0.5 [facility] ([facility]) see progress note by Angelica Baso # 0.0 10 0.0-0.2 [facility] ([facility]) see progress note by Angelica Dinwiddie # 0.3 10 0.0-0.8 [facility] ([facility]) see progress note by Angelica ID Date Data Source [id number] 10/09/2020 01:50:00 PM EST [facility] ([facility]) Name Value Range Interpretation Code Description Data Sumaya rce(s) Supporting Document(s) Glucose, Fasting 95 mg/dL 70-100 [facility] ([facility]) see progress note by Angelica Blood Urea Nitrogen 5 mg/dL 7-18 [facility] ([facility]) see progress note by Angelica Creatinine For GFR 0.71 mg/dL 0.55-1.30 [facility] ([facility]) see progress note by Angelica Glomerular Filtration Rate Laboratory test result [facility] ([facility]) see progress note by Angelica Potassium Serum 4.1 meq/L 3.5-5.1 [facility] ([facility]) see progress note by Angelica Sodium Level 139 meq/L 136-145 [facility] ([facility]) see progress note by Angelica Anion Gap 5 meq/L 8-16 [facility] ([facility]) see progress note by Angelica Chloride Level 105 meq/L 98-107 [facility] ([facility]) see progress note by Angelica Carbon Dioxide Level 29 meq/L 21-32 [facility] ([facility]) see progress note by Angelica Ast/Sgot 37 U/L 7-37 [facility] ([facility]) see progress note by Angelica Calcium Level 9.1 mg/dL 8.5-10.1 [facility] ([facility]) see progress note by Angelica Bilirubin,Total 0.2 mg/dL 0.2-1.0 [facility] ([facility]) see progress note by Angelica Alkaline Phosphatase 156 U/L 45-117 [facility] ([facility]) see progress note by Angelica Alt/SGPT 50 U/L 12-78 [facility] ([facility]) see progress note by Angelica Albumin/Globulin Ratio 1.5 1.2-2.2 [facility] ([facility]) see progress note by Angelica Albumin 4.1 GM/DL 3.2-5.2 [facility] ([facility]) see progress note by Angelica Total Protein 6.9 GM/DL 6.4-8.2 [facility] ([facility]) see progress note by Angelica ID Date Data Source [id number] 10/09/2020 12:00:00 AM EST [facility] Name Value Range Interpretation Code Description Data Sumaya rce(s) Supporting Document(s) SARS coronavirus 2 Ag [facility] This lab was ordered by [facility] and reported by [facility]. ID Date Data Source [id number] 10/06/2020 11:11:15 AM EST [facility] Name Value Range Interpretation Code Description Data Sumaya rce(s) Supporting Document(s) Nursing Note [facility] ADLBLn5nPvNXPgAi18/GPJekKRPua5RcYXfcIPj5ADnxIWWgS7UbXRD8bU0bKDB7EHwHPvGwRkVoOdP4 lbm [file] J7viXwDMklFXQhLy6JBAYHQ7IVAu== ID Date Data Source [id number] 08/26/2020 07:56:16 AM EST [facility] Name Value Range Interpretation Code Description Data Sumaya rce(s) Supporting Document(s) *Initial Consult Visit SAMUEL v1 [facility] XYQPRz2rCxXJWnVqm5wuODfuGBEwa4QjPDp1BT2NU2Uypg1Qa5XkEFYeBGZPMTfrUTahBREwZ8B6DPuz 1dH [file] 3XqjqHiP25S7//m/205+U+dpgdL3ySNjQHmfQIhV98LmiC9v8q/26bO7+/pullboat engineer/2p/7a99KSj3uWE+c9wX [file] lGAAEBAQBgAGAAAP/bAEMABAIDAwMCBAMDAwQEBAQF DFOJQYTDPouUWtlBMr4VAQsSHG0JMRRHLuIHNMgUZWJATWJIYztRQDpbNVCxPUBQMh/bAEMBBAQEBQUF CdPBRgTIZF7LLjHEHgANMuNADpVYSlYHAuVRAzRUOgOSJbLRNiYLKlPXJyIVWnANQmHYAhGKAeWRSn/A FGYQWUVM0eGLRiPOHUATXEU/xAAfAAABBQEBAQEBAQ AAAAAAAAAAAQIDBAUGBwgJCgv/wMC4WLVCYEYJBzKYSTEEGTXVRV2OThLEITRLWgAhXPLQSBIELlLHBr PBeWjwVyAQVIGO0YFfMzZFUZmALwjHBiHoIlqbZbV9Thm6MAiBHFKJT8jCJjTQNOFMNSybW6MhVxwqlM gzjSP5q9r9ibHWeOdZkBlHvjRPmGoGwZrukeCprbvd xGvqkvK8mgw8aRj2uaYYhsfVnCfB8fXV4mnJ5Evd1aEd6TWx1+id7bSj5/T19vf4+fr/xAAfAQADAQEB AQEBAQEBAAAAAAAAAQIDBAUGBwgJCgv/zXJ5ZHEQDQDWLRKFNvUGMBSNLsuHMSARIPSJWZAZDoMYW2Bj QwVcpIkPKaSetxAQDfIV0LVazqKLOeS41WMqXwkAUi BaRHebJUU7YEb5A0ZDLdoSAOeAPHXTU2qRFzRvRJBjyUndw8V6spz8gMbLi0EJerlPxBgIz0HCbccMeO lyw4Mclmjipotgo7Q8slw4pxtQa8LZdarPykfZ76JR2cnO7uzg5+Ip1uwr0bbk3/T19vf4+fr/2gAMAw EAAhEDEQA/NXozWXUJBj5FygdhC/KnZB/WuE6aacLD ih9uhiQTs2KK5Mb/GU6697rYy5xAf8Y30uncfOitPBYKR5xW6L+ILDw/q3FI40cyl1plhcSRp136Dbrq a9z+gGScAViw+FLnxHcpqnjU+CBEuvHL8TdT04/nIO26Z8RuseI3hn5L4k9bgz0tnWcYQLkF2IptxZob 9zhA78MrJwl9fl2/xs48gNg7lWUCE/FSXNtqGlwgLF 6hhcrfsrn4NgEUZySLf93u9x6N6sIX+A/AcC1XfPORUYes7ZYLFF8llD/Km4Pov/tLd0UE3WCApqtL/I X3kDh6eSdwKkJKAVl+VL+WCQSeSSGS1rTUQts3bguGAks+uJi3ajUfvLUeQyKewUiXILIW/cJLno9lHS wI5wv/NYlPhLb5M6LeWA71gfHkHuRpO8W+VKoHp+lK mBNKrQ2xtjdGqiPq96+UPlNvdoMB5M3Iwd5QvG9JQiik2muCuTHGDeKgowjnqK1OCCjlJtPMGyMlrYOO PezYf6R+WBx1PJYtO6ZvzvIiyuaKzVwvQAEkTf8sfrDBRTi5Pv445tl7YOrL1POZydn7Ow9VeKsieOxO CCK70xtUhrlcsIrbRnPqJal93iN0E2RkCCN3BkTJmH n5IvkJtXIItZlUHF3XQfIfVGe5o0P817QMY/d3KQjDByr8nPa0dR48TN1zDs6mLcvD8iTEMoxpjXzYEZ A4rq/blow pit [file] hE1qaOMI+input output clerk+qfOXnymSlbCzq/dNc7+vS7T81/Aw8b [file] 8FXLJGW7GVZv== ID Date Data Source [id number] 08/04/2020 05:24:31 PM EDT [facility] Name Value Range Interpretation Code Description Data Sumaya rce(s) Supporting Document(s) Discharge Summary [facility] GBGOQe2vEzOUOwKc74/ISPzcSREld1BlYQqoIFi5UWfsSPWfV3ZnCIY1rP7iVXO9EFkKRbVjDfCfFYD8 lbm [file] AgICAgICAgICAgICAgICAgICAgICAgICAgICAgICAgICAgICAgICAgICAgICANCiAgICAgICAgICAgIC AgICAgICAgICAgICAgICAgICAgICAgICAgICAgICAg ICAgICAgICAgICAgICAgICAgICAgICAgICAgICAgICAgICAgICAgICAgICAgICAgICAgICAgICANCiAg ICAgICAgICAgICAgICAgICAgICAgICAgICAgICAgICAgICAgICAgICAgICAgICAgICAgICAgICAgICAg ICAgICAgICAgICAgICAgICAgICAgICAgICAgICAgIC AgICAgICANCiAgICAgICAgICAgICAgICAgICAgICAgICAgICAgICAgICAgICAgICAgICAgICAgICAgIC AgICAgICAgICAgICAgICAgICAgICAgICAgICAgICAgICAgICAgICAgICAgICAgICANCiAgICAgICAgIC AgICAgICAgICAgICAgICAgICAgICAgICAgICAgICAg ICAgICAgICAgICAgICAgICAgICAgICAgICAgICAgICAgICAgICAgICAgICAgICAgICAgICAgICAgICAN CiAgICAgICAgICAgICAgICAgICAgICAgICAgICAgICAgICAgICAgICAgICAgICAgICAgICAgICAgICAg ICAgICAgICAgICAgICAgICAgICAgICAgICAgICAgIC AgICAgICAgICANCiAgICAgICAgICAgICAgICAgICAgICAgICAgICAgICAgICAgICAgICAgICAgICAgIC AgICAgICAgICAgICAgICAgICAgICAgICAgICAgICAgICAgICAgICAgICAgICAgICAgICANCiAgICAgIC AgICAgICAgICAgICAgICAgICAgICAgICAgICAgICAg ICAgICAgICAgICAgICAgICAgICAgICAgICAgICAgICAgICAgICAgICAgICAgICAgICAgICAgICAgICAg ICANCiAgICAgICAgICAgICAgICAgICAgICAgICAgICAgICAgICAgICAgICAgICAgICAgICAgICAgICAg ICAgICAgICAgICAgICAgICAgICAgICAgICAgICAgIC AgICAgICAgICAgICANCiAgICAgICAgICAgICAgICAgICAgICAgICAgICAgICAgICAgICAgICAgICAgIC AgICAgICAgICAgICAgICAgICAgICAgICAgICAgICAgICAgICAgICAgICAgICAgICAgICAgICANCjw/eH XwZ6ivlPDevvN4M1vsXu7IPb0GQU2ed9WxZQUvGYyp odQyQdhEQdWcPLDwDkbTZkc9OBkhNC9HfJNrD1GcT7IsCEucVI2VPTObVWElaITjJFZiUKTkRaZ3JRSp JMpbNR4XhXOoWYfkPUNrENYpEyZlLNQsSUPeCBOaLKFfACQTWVGyJQOkUjHpZRcfSR7Sk3BmxDH0XQp+ Kd4AQY2af5IcKXnjNJBwSM6fsu4FECrBKbDmL2Qxlg U8BFN3YSGrMd4LFWNpMABslRDoYPFlZJPMMqGtO7LssP13TMZTIx5+SArzlmZwBhvNPtA8GEPff3EpYH g0DK7XUQGcZZc7uAWbDYicD1uqdymmWQX8pT7vcigcAlhmHZdynmGuXZCUOMzrkgUkNF8LUEN0DVRpVr R4WaWbEfEhVLD5ORQfSR9eYTuuYU6RTFE7VXskNGJk QYUwU2gQIyCqGFywGOBjiLnxGA0VNqYhI1JxcvOwvJGrUDKdYTHAVa9+LGfzfiBvDmrUGrZ1JWDta7Xm DPd5VK8VGUAnUGccSU0YOGXcfG9wDAtwJL2XRzSoMnBbXBBLHnWfK38ooMDmKVj5N6ZyAzLlWSZgAosj ZXMgPDwvTmFtZXMgWyBdDQogID4+ID4+FIckAQ7HFA mzgpXoVHVmQo9JKQBlHBBpZY3yQVDbETWyK0Q2hVxlYGEVPaIhO1vvaczcXC7oYURgL676dGleysZiTW W0ANRpXl2PNKZiCBO2FOGfqANfDqClJKBAMUziIJ3UePWqIVF2vP8qZHchGSQxHUVcD4lJDhItxTjaAA 51bGwgbnVsbCBdDQo+Ru0NGC3yx1NfZMp0dhWxJZlr FQJ1ABblYUFoZWXjAPUeHPC1FDU7CDNBPuTiBXLgHYXkQIksSZDnHJYznq5KUEIwDCTgMwG3ZfVxDWUj JEYdLKxqRBSiJBU7WYE1WGAhRQViRX9PZvWlYULcIABwTFzoQLWvYRCczp5IVQJuERSyMtu9YlSfDWPt UNYiFTkvGKWbGMJeQFG2JAPqPEYiLJ8JQlShFWYsKS D5NsPoPGUyZVRsos9UHIPdQHThPuQeFXUePTCmBKUwWDqeGBFmUDBqMSW1OOBuBWUbOM0HAaViIKGeNV G4XKNyURKiBMEpzy1XMNSkLAPoIaH6AaJcORHvDEBlXApyMVQiGQRgGrfwMFPfEIPhIK3IMhNuBBKiWJ LoCaVeGXXzZRGfjk9ETEVjNWWxYYYiWrIsNCWdJTHn DVwjZGRoYKY7SHt7MDMrRQXeTV3NUuScMAUmBUTgSFzgMZTjDJKagw5KQPMaDPOlDeY0FKAtCDBzVTQo THdzPSHhMIC5ZYJ1LCCtZBDcLU6DSxWgFGPkGTe6YWZnGLEgEPHehv5BHFWjZUHqVunwKSAwEFNkGJRx FFiuZTNzXAQ6AGgiTAPhBMNeJK3OQaWiZJQwYAvhJZ EyLHWoFMVxfe7IKIEtRMXlVIX2JRZxHBVsGWVtUFsvOUNaMRKfLjP1OHWvIIGrNI8WMgHmSGHeIzQ3Lq CgOIRlOSUvjw3VTMPpJHGqSEXlJLKjKEDpTOBaWHdiWFCcRXJsPLodKQBlQCAfGC4NGhQaQMChFfU2XU DiUGSfVMBvfl1AXBNyGYZqKJf2JLUpGXNoKCXgFXpt UXVmJFQsOEJ7PXNrFUJtTM3NRjVcRXUxAdKlKEOwEIIaLRUmhq8BJOCsOPNrAaVtINXaKAIfJIVqBAgi DJNlPITjTBY2LSRtSPRvPX0CDlSuFFYyPwWoQNSeYLBlZROdof5HRJSyAVVdAJE0VVTmNLDsYTKpMApc YGVbREQ6QQZ6JRXnOFBtRS9IUnFwPQcbJOJWYfs0SM khE1o8FBSrPe9LD1Uhz5FkIzXdOJPEOCzmFW2gwoVoFSAjOq1QI9mCYdhwKhwjDsB7XQC8BWKiQvqjHe E1VoUkDLAvHSP6VnNfXA4wTGZ4GfM7VvF4KGr4BJXuIpLdXgqaUTZ5PiX4ITNmGLAlRjZcXZ9SSj6XXb P7DBI7lUEzVh9VIuK4CTyIPrRxMO4RPWu= ID Date Data Source [id number] 08/04/2020 12:01:[address] [facility] Name Value Range Interpretation Code Description Data Sumaya rce(s) Supporting Document(s) Progress Notes [facility] TNIGAe3hXaHIXnQa23/NLRkdOLMfk3CuKAjfXOk0DHaoISOdA2JnNES8uO0bEDE8PKmQIrPzYaVrLSQ2 lbm [file] 0gDQo+Ki3Mr8ApmgF9soVdKPkkEpC2EG6FCJALK3PKUn== ID Date Data Source [id number] 08/04/2020 11:44:07 AM EDT [facility] Name Value Range Interpretation Code Description Data Sumaya rce(s) Supporting Document(s) Care Plan [facility] AYELNw7mVyUWXoTs54/UIQucGQXms8NpAUabVVe4ILdeMQObR0JvTOF0bZ5hLNZ0MGnWPoMcDpXjWHE0 lbm [file] ICAgICAgICAgICAgICAgICAgICAgICAgICAgICAgICAgICAgICAgICAgICAgICAgICAgICAgICAgICAg ICAgICAgICAgICANCiAgICAgICAgICAgICAgICAgICAgICAgICAgICAgICAgICAgICAgICAgICAgICAg ICAgICAgICAgICAgICAgICAgICAgICAgICAgICAgIC AgICAgICAgICAgICAgICAgICAgICANCiAgICAgICAgICAgICAgICAgICAgICAgICAgICAgICAgICAgIC AgICAgICAgICAgICAgICAgICAgICAgICAgICAgICAgICAgICAgICAgICAgICAgICAgICAgICAgICAgIC AgICANCiAgICAgICAgICAgICAgICAgICAgICAgICAg ICAgICAgICAgICAgICAgICAgICAgICAgICAgICAgICAgICAgICAgICAgICAgICAgICAgICAgICAgICAg ICAgICAgICAgICAgICANCiAgICAgICAgICAgICAgICAgICAgICAgICAgICAgICAgICAgICAgICAgICAg ICAgICAgICAgICAgICAgICAgICAgICAgICAgICAgIC AgICAgICAgICAgICAgICAgICAgICAgICANCiAgICAgICAgICAgICAgICAgICAgICAgICAgICAgICAgIC AgICAgICAgICAgICAgICAgICAgICAgICAgICAgICAgICAgICAgICAgICAgICAgICAgICAgICAgICAgIC AgICAgICANCiAgICAgICAgICAgICAgICAgICAgICAg ICAgICAgICAgICAgICAgICAgICAgICAgICAgICAgICAgICAgICAgICAgICAgICAgICAgICAgICAgICAg ICAgICAgICAgICAgICAgICANCiAgICAgICAgICAgICAgICAgICAgICAgICAgICAgICAgICAgICAgICAg ICAgICAgICAgICAgICAgICAgICAgICAgICAgICAgIC AgICAgICAgICAgICAgICAgICAgICAgICAgICANCiAgICAgICAgICAgICAgICAgICAgICAgICAgICAgIC AgICAgICAgICAgICAgICAgICAgICAgICAgICAgICAgICAgICAgICAgICAgICAgICAgICAgICAgICAgIC AgICAgICAgICANCiAgICAgICAgICAgICAgICAgICAg ICAgICAgICAgICAgICAgICAgICAgICAgICAgICAgICAgICAgICAgICAgICAgICAgICAgICAgICAgICAg ICAgICAgICAgICAgICAgICAgICANCjw/yVXrO5izmWPspgD5C9mkAj0QMv3ITA0xw0EoZAUdFFjusoVa VufUXkYpIOVbWsbBYnf9UVziRI9XcSVtJ9NqL6WhMK pwUU7QDFHpQGMqcVNwOMXhIXUgYpW2NQNeBImaNG1KhLAfWXwlXXMePUCaPD8EOBQbS242nqMxTV6VDs 2TTeDvTR8heh8UYeOaJSYtJcgWSrl8LAngAT4IzZDjeHFnVqNpGHRFPyQmU5hjy8ZvClNdVGUUYUwsQF 2Fw8HauGAyXNd+Uc0TWD9xy7ItYTwkGtEyHE3cuo1X JZpOYzInE9VyiHxkCYInhxMlRRxrnlVorPSFZHUqkzitODYMabP5g6t2MDIGCkUglRZaGJ3cTN1xIZIm DXApLjSnZPBJAI5QEVUgQNFwuIDvBXYeRFTCSB2ERAbzSTT0FoipmcWtnEMrXYvsIL8KRIImueLkDmQq MCBSDQo+Hv8RKR2ag8TiTWgzTsKiPU8spa1OZOjQMk DlG8F4hRDwE9V3MZfgDz2LITAxOEKqXtDwBCRSZXqrLC8XPU6bkqZ0JO5CpMIpYCQtDNYbzLUqIAz8V1 2voJXuKIxgXT7ZDYC+Savannah+Ve6UGNKwFAQzIELsZuBxVKWJLgTaM7KpB2BZp9JnZ7JtVW66lZjkelQdOO quGJ8KBW2eTIHgCVSOPR7WmVVrkL2swwEuMCIsJYUO UhAxZ02zyIOsWPMmMDL4PEDqUk8OEXBqB8PufdDyaKthtrDqTWXbNHILRT7VLByjvqXiwNKoySegVQ39 wJykVN9BUc4PTzGrVN6cfq1UyYVcGp4XHWBnJY7ZSKKvEQPhQXJaUGG1DXPbOxDzODgmGVVyAAAyHTE7 WNGiYTCyYV9MIyHyZPWiDyW1TYCeHRXxZBOeno8BHB WtGTBoPrJ8XfPrLWPtTJSsKVzaEXXkSEUxYTZ7GCNdUWKkBE2VMwUhPGRsMWKtQHWwGSWzUUTloj1JRN NcOPIwBnHjHsRgMQDvFQGlGFziZFZoWLRyZFP0YGYbUUJlAS2WEgOzLIAgGVIbHoYaAKCwRCBapu3WAW TbEYMbMaS0ZFDjWDMpZGLwPEvqJBRmIXL9FWW3RAUc BMPlNC8BHfDfEOBmUUB0YHSxLSHkTQHfdp1NPSTuHKRzXTk8VRBlGGOvMYDbWXdrXEEaOVY0ShY1VJTo TKRjZQ7AYhZaDBUrEJn5CHQdFHFcEYCxkd1DIYByGFXuJdc8KbMqMDOmWBRxTGpqEDMdCJY4VXJnDMDl LQJzWU8VKrRvAKRoWQbcTVenZSMyKQRfjk8CXQXcOH BxDHZ7MUVoGMCyXSVfUGoeKSBgRUN2Wce6XHEvUNMyVF9JFrTiMRKdMTb1ZnSmLULePRSslh5WIHWgDZ EiRLFmQeVrKBTlFZOgHUzhBRYxMRHsEvGkBAPyWFUzPB1MJgJtRBHmTfK4WgYgBGLqMDKxrm4YQNFiLI RiEKLgVwCjWRNlLICzOUbuFTGyHGDmMbV6OZApNPEm RP2ELgQxXZTbBrW0JXUlHBTvMHAbrs7TATCpPHOnRem8EbFtWHFsCOMfFOo9krWnrNXdEAu6PB8WG9Tm inQvFbvCWo2Yg383ZKM5SHLrMs3EU1rzCn7zZTRjBOWRTw5XTBz1MfBpNnWwMBwcQPQgTcivUMwhRsO1 Oex3EtGwSuFrAGa+PMezVGH3I6XtWrU3HfBnOZInWO OjCFnmVzm4CQL9XBVxUZ0uRHDDEu7+YAidmLKvhWhlJJVIXzGkLKX4MUfbASGTZh8S ID Date Data Source [id number] 08/04/2020 11:38:04 AM EDT [facility] Name Value Range Interpretation Code Description Data Sumaya rce(s) Supporting Document(s) Progress Notes [facility] ATXYXr6mQpIMYxUy81/GUKjaEYQwq4WzLIavFVg1SQxlJRPiI9BzYVC6kM1dRBH3XIrVHxMeHaAwCDL9 lbm [file] YYbsxAOhlZxsUFYGQtHzOPVpYWrtZLQJFc1U ID Date Data Source [id number] 08/04/2020 11:28:35 AM EDT [facility] Name Value Range Interpretation Code Description Data Sumaya rce(s) Supporting Document(s) Progress Notes [facility] OULMQq7dFnPUFoBm17/TUOvkYQXjj7YbSHqvGCh5PNxaWREvO4HrEWA4bF1jUSM1MFgPFkRmTzZfTQN8 lbm JrKzeACpDrMHXkQfmDTzJhCXuzChmnfGUyQJ6KzYO2VMNyH26zHXFtKLYcQ3NlRAG9ONz+Pr4ZXTCtkD UqRK5SOvyA1Vrcf1b1LU3hpZ/Pv4PJpYZfUqEtwGnGtl6tVn9lVOsSESnr3pxVwK8d8pGxc6Qj8+eEO7 AdOkmBtg/NPgrw26ganSFX5+8fdpBpzjlb/F/+mlnJ zmfs66/VsmvHq35pQ1So4HHdeymbG+5XJW4/iOOJDhI0SS+DUXH3zHGyjlPipWV0bHm0xc8G7C+E7PlL k9jB9TZKHu8tsCwHkH4uN1a6OG1jjYdrbZl6vkLeLVy3sUSLsyyj00tVGPeU1fDUNKmLITwzgMpZuKUM chqiyheKL05btnAhzzzvyTMUX/cnDJF3TszghF/rbr [file] [id number]== ID Date Data Source [id number] 08/04/2020 11:27:49 AM EDT [facility] Name Value Range Interpretation Code Description Data Sumaya rce(s) Supporting Document(s) Nursing Note [facility] EVROBx0nEbYONrTk26/VLEykWPWqw9MpHYkoCXn0EZuwQINqR6QbQSO8zW5tOJY0DPsTQoOrYwQvGBW5 lbm [file] NzHZggJPD0UgkzBNddFXHtLFMrO0GrScNoDI8FDx7GYcC3QBJ4rEAgFl2NXcT6NTdTLmJsAD7AIQp= ID Date Data Source [id number] 08/04/2020 05:28:00 AM EDT [facility] Name Value Range Interpretation Code Description Data Sumaya rce(s) Supporting Document(s) Blood Urea Nitrogen 13 mg/dl 7-18 Normal (applies to non-nume zaina results) [facility] Creatinine 0.61 mg/dl 0.51-0.95 Normal (applies to non-numeric resul ts) [facility] N-Acetylcysteine (NAC) and Metamizole lemus ve the potential to falselydepress Creatinine results. Baseline values before medication adminstration are recommended. Patients undergoing treatment with phenindione will have falselydepressed results. Patients on phenindione therapy should be tested with an alternativeCREA method.Toxic levels of acetaminophen may lead to falsely depressed results forpatient samples. Glomerular Filtration Rate >90.00 mL/min/1.73m2 [facility] GFR Reference Ranges:Normal Function or Mild [...] of Health and the National Kidney[employer]. The Castor method used in calculating this result is traceable to IDMS standards. Glucose 97 mg/dl 70-110 Normal (applies to non-numeric resul ts) [facility] Sulfasalazine has the potential to false ly depress Glucose results. Sulfapyridine has the potential to falsely elevate Glucose results. Baseline values before medication administration are recommended. Calcium 8.6 mg/dl 8.5-10.1 Normal (applies to non-numeric resul ts) [facility] Sodium 139 mEq/L 136-145 Normal (applies to non-numeric resul ts) [facility] Potassium 3.8 mEq/L 3.5-5.1 Normal (applies to non-numeric resul ts) [facility] Chloride 108.0 mEq/L 98.0-107.0 Above high normal [facility] Anion Gap 8.8 [facility] Carbon Dioxide 26.0 mMol/L 21.0-32.0 Normal (applies to non-numeric results) [facility] The above 10 analytes were performed by [facility] [id number], ,[place] [address] ID Date Data Source [id number] 08/04/2020 05:28:00 AM EDT [facility] Name Value Range Interpretation Code Description Data Sumaya rce(s) Supporting Document(s) Magnesium 2.4 mg/dl 1.6-2.6 Normal (applies to non-numeric resul ts) [facility] The above 1 analytes were performed by [facility] [id number], ,[place] [address] ID Date Data Source [id number] 08/04/2020 03:47:33 AM EDT [facility] Name Value Range Interpretation Code Description Data Sumaya rce(s) Supporting Document(s) Nursing Note [facility] CBKAXo1gMsLZYmKs29/RXMtiLUQmk9YxUWapNEu2JEdmQYTnP2UaVDK8aQ7tUBL3ZIxTVzOkWxVtEIO2 lbm [file] WqSgONgyQQMQJl0G ID Date Data Source [id number] 08/04/2020 02:05:26 AM EDT [facility] Name Value Range Interpretation Code Description Data Sumaya rce(s) Supporting Document(s) Care Plan [facility] MWIDCj3wAsIRPuEt02/ONAzgOCDub6JuVTceHRl5QHukIDVbB2HxXRV4aC6uUSS3IGrPDaDrEuBfOEH3 lbm UgWjkEKoWoNQYjZfqWUxZwVCqxLqwcvUBkUV1WpWV5AIHtS20jPDAzUMZhF0IsZFU3JJc+Bi9YNQTqyU NkQQ4VFhlC9JdZe7s5BX28be3GkzEcnR9EJNk32vEyyg7lSe+vg2jdoFvHxqYUfZs38ktEJZWcgEmYAw MymYuKCFC2Seu0087DTIIx03l7tdqMEHu+qsfUSNaf sR9/KLborduixU4KW1HNkv9J81B+RuLLDqcmSqVCP/bA2YCkR5tvALeNsH3KpzQALtbVy/K1kF6+1Pww gF/r1lbSI1V04L2Afvq0yqMhGzblCEE5ge+sSzM144fIxYCrki9QIRQT238o1z5OaVj2BcwFna30care oNyzMPKcrksyeiAECFpistsUhs1B4f0k2mjbNuEXwm 7wcCOMV4wKfnHCf9d2VSSdKgpgEb6dNVLW43oyAJB1wpbDFKynccFeTpOYtcXkFiOYT+b9MbsVTYXTft H7pvj6/aVmQz6vELjkIImMPGjQ4jQ7FeUABc/PYxUXIlF3JdwHIk/Gi/jssBNvuJPTbt9RbTdOezbRg/ 0k77r4s57r4FYP1d30TeZWOSd63VvqRwuhm0gi13kG [file] MCBSDQogICAgICAvRjEgMTEgMCBSDQogICAgICAvRj UaGHXyXSUTRQzhJCJoNXFkEpZtWDmdIBTZKa4TUoMmGUAwXF5aaiJemUX6RVS+Mb3DOQKeXX7EyAMWE1 GjrGDxMCbcD8XEMD1DZEG1EU4HxOXsEE4XeXIEW8GlcVCzUz4kAOVkh4RhDk6lK9UYAIKNEAWgTVcfFW ltHMZiJBg0S5T8TZVrM3RMJ222fKBtzOo7Jl0qM8RM RStEBhOlUCoaFUrmNSWzEHk1O1H6GHQjC1AWD7IzPjTiziPkB5K+OmWiYKPCLZ7MNKZIZHs8Q1C1cVQc F1A9fCrOjAW0MJ2QAF8SaRKrmYStm05+ZzVLYrNuEXLoI6KRZONCWsVxBKnlPUhiEYKfBUv0O5Y9DVHn T5RAK9zuV7a5MQ9+WrUBRjWnAFStBt8GLzYhMg7UAq KmOD6zzr9UEVbhFDGyJpaRGib1W7aceck4rCVbVzE6E8Z1UfB7oMGiQV0KO9Z7bUBkLQO7RIHwbOY+Pg 7Vm8ZdSDYrAXc0F1ayXQBgRFEpScBslV00H++9zztypQI4X9t1XMNUxLBgiZhBfyAsT5gXHDH8r2Q0CA c/Lw0OPWY3kNu7uJNfAPQxSYb2tS2vsZo7JjBvGV99 RJDzWHiphH7eCek2T3Lzn5WaIh2uTz5apMPbPq2PSwClUIW7ymDkPqRZIaP7pDeuzinhILX7M0f6lNW4 Uv28a0gmyoSbw7ZzQmS5RAzpFHEtPwCzcqVdYWF2hrFqhV5tuvWlOk3YELWwPQsksqFvCkZCEs9XAlNm YB56OwvbsF0frCD+DQogICAgICAgICAgICAgICAgIC AgICAgICAgICAgICAgICAgICAgICAgICAgICAgICAgICAgICAgICAgICAgICAgICAgICAgICAgICAgIC AgICAgICAgICAgICAgICAgICAgICAgDQogICAgICAgICAgICAgICAgICAgICAgICAgICAgICAgICAgIC AgICAgICAgICAgICAgICAgICAgICAgICAgICAgICAg ICAgICAgICAgICAgICAgICAgICAgICAgICAgICAgICAgDQogICAgICAgICAgICAgICAgICAgICAgICAg ICAgICAgICAgICAgICAgICAgICAgICAgICAgICAgICAgICAgICAgICAgICAgICAgICAgICAgICAgICAg ICAgICAgICAgICAgICAgDQogICAgICAgICAgICAgIC AgICAgICAgICAgICAgICAgICAgICAgICAgICAgICAgICAgICAgICAgICAgICAgICAgICAgICAgICAgIC AgICAgICAgICAgICAgICAgICAgICAgICAgDQogICAgICAgICAgICAgICAgICAgICAgICAgICAgICAgIC AgICAgICAgICAgICAgICAgICAgICAgICAgICAgICAg ICAgICAgICAgICAgICAgICAgICAgICAgICAgICAgICAgICAgDQogICAgICAgICAgICAgICAgICAgICAg ICAgICAgICAgICAgICAgICAgICAgICAgICAgICAgICAgICAgICAgICAgICAgICAgICAgICAgICAgICAg ICAgICAgICAgICAgICAgICAgDQogICAgICAgICAgIC AgICAgICAgICAgICAgICAgICAgICAgICAgICAgICAgICAgICAgICAgICAgICAgICAgICAgICAgICAgIC AgICAgICAgICAgICAgICAgICAgICAgICAgICAgDQogICAgICAgICAgICAgICAgICAgICAgICAgICAgIC AgICAgICAgICAgICAgICAgICAgICAgICAgICAgICAg ICAgICAgICAgICAgICAgICAgICAgICAgICAgICAgICAgICAgICAgDQogICAgICAgICAgICAgICAgICAg ICAgICAgICAgICAgICAgICAgICAgICAgICAgICAgICAgICAgICAgICAgICAgICAgICAgICAgICAgICAg ICAgICAgICAgICAgICAgICAgICAgDQogICAgICAgIC AgICAgICAgICAgICAgICAgICAgICAgICAgICAgICAgICAgICAgICAgICAgICAgICAgICAgICAgICAgIC QpNFOrOWJgMXJsZRLdITKmYLEnHALgZRLgMHPiLFBwNTa5W0dcKMDmIXAiJQ1uRLi2Gh0+DQoNCmVuZH D5pyNxuR4AKZ8ky3XtRTgtYMDug4GcJSn0XA3WHKSz SMliKK4EDZwkhr5EYZKjXUAmkJOGd7ekNhUwAFY4KTTbUsyxDC7QJDHbG0rcoaWoOZNlGAIKFY5CEqXn U7ByoQ44BLJCTv6+UUfbhkJyGkxSGvBhOULuy0ZvQRs3KN4KIRZnMggbb9EeDtSoKKGZSMwhBO2OSLF9 HDJbQTCwEu3OXZSfA339hhEnBW6UAr8CSxTjGI9zav 3KSaTjCAToWrgXLuz6VOzgJI1EgDRoNIkXIHCqXDRkBW3gNwonGJtbtZXYlQIsP7EyEUMCDhSfkAYhFM 8dLQ8hTQUqXHJuFcW7FBHSGA6KPTNzEEKflTWlOXDzAASZXN5GTAdhJNP8AqxaaoRylEUdXAbsZM8CPG JlbnQgMjAgMCBSDQo+Yv6CUH2zr3TlKNkjDiAqRI8y ly5HZCtSZhVkB8L8fLSwL8R6QAqfRc8YIIYuPSVfKPyjWHXUDFwiQJ6FHV0elwG9UL3DuJWtBVUtVIHd cEQwUTj7K99zrLZuEVvdHL6KNJC+Savannah+Ez2EXZExJZMrYZRmFoXkMBNSHyRhP8ZeB7EGt3PpC2XwWU78 gUdhrfRcSQzgQN3YQC6nRYDjQTCPJQ8LhBVtoK9hmr JyTWIcHCOQOfDsC27qbGRiXKJbKCR7VKZzWt7HGCHxS7RqwgEgiAqhrbOeNAHrGBJXBB2PSVldlyDnyW EmeMpfIF43vJmkWT2ABr6WApIiNC4pzv1BwIQuDh2VBJSuSk7JGBHwHXUoAYAtPOO5ZHPiQbWzPRinVV SaAOTjGAS6WUTaUNOxBC9AQcQeNZZyXXg0TjRcFWAf HZOwaa1ICGAlPKFsKHB9JjEgNCHaNLKnQStqRHXtFYLdRFI3ZUHcDTZwSU2GKwMsPGSxQUA2WHyqDAVm WWCqui6UBZTtIPQyBlAlKLNpVPDcEAIsPSmnDQVtKCApIYA3ZFUaIULoMR7YFdYbAHSoGAKdUwEbRCBt HZXsuc7YTEJvLRPeSmG8CSLpOCDhBJQmEPyeZHMdRG F7HHO5VZHbZZCcVT3MPeCpPPRcEBS1VBCzDCCeVCQspa6IDXQoJWGsLJe0FhOwTBFwBWEdDCleZEBgCW M1LGBkMVVzRMDlUK3IJlYxNSVcZQFpIELwGHTdTCGhtb6SICFbEVBwPnP6WqKxSCNeFCUrYHycDBJqAO W4XnYnGADdYQErDN5FSuJhDNDvPEp4KOMrGWVjIHNk yh4DOCTjZSEeJuM1RvAwVMPbBBGdHXyzSQDxEMT5SDD7FTGcZXFvVG1MLcMoXZNuTWp4PsZeNYSuCQCi jf7AAYLyYYDeOIL3FmCzJDIaISDaOPhyWMSdCSF4Bwf2TXKbDEWgAP3YQbShOEreMYLZFgo7JArqV9r6 ISDgPc1OL6Ojm3FrMoRlGCPFNPuaSR5giiWhQGTgGj 7CP0qHEgftTzVnSWMeLiI4PPXiPkWgPJClHYJmISFgNfM2V0XxKw1sFDRhBxQbAZHuUbMpGTNlRlSoKz J0MJF6JXPrHFnbCBJdWwCpDG3EUl2DRkQ7PEN4qNAaLv3USKfcWi3SNMUXO9RXWi== ID Date Data Source [id number] 08/03/2020 08:16:36 PM EDT [facility] Name Value Range Interpretation Code Description Data Sumaya rce(s) Supporting Document(s) Progress Notes [facility] BFWAHm6nXoHDDwOx31/HBAugBWWup7FuYCjmVGu3EDlmKDLwH2LyGWO0eC0tQWC5PVuZCjPtXgGvCZC7 lbm [file] MDAwMDAxODEzOSAwMDAwMCBuDQowMDAwMDIwMDcwID IuZRTjRH7BWoKmQPVpAoBrGxSzQZKtDVWoig4BOXXvVTUpPGKyABYwODFlPOQoTSmwSIDuBMGoVSQ9FX BnPQYhPN3CXvNcOMNpLtP0DxByVFNbRVLpip0CPKXiGFUyIaU4BMZnLQUeCUGeQKwuJZSjRIUkSnxtKQ XpNHAcUC0QLbPqWTDhJgX0EzCxCLFuSWEjdv4DKOMv MVFwUzmeRWHrHSOyIZOtUTshVVAmFNQ6ZXAhUNWxLOMlEU4HGxSsCGQcElVlNmWuSXOiAHMeuq9PJAHn CCHnPZN1NBBtMUOoNQDaYYdvIAXzRZW3XXwnZKVfSGRjMG0SBlKmPOOtQlU6EtRzQRSdAFJewp9BWUJe OKEvDpRdKtHyRJLsJYLdNIqoQKAuSYN1DFY2TKOvUN TyCT7ZKiGuEEEuAnkwBNddDYQzBDNslu0QOFRcRMD5WFV7KaEwMUAkCFJoOYysWMZkECV0VQA0JDRhQV QeMI7ZAvQiFHDjSRIaLQbzPMIeTGGkca1KCPFiYUE1TDx5WPSmMJDvCZNrANgqEXSuYXNlKZP9BFTnBN CdMO9HTsKmXIHoARC4IzjpHAIrUOZcep1BHSRfZZB1 Tru7YwXqYFClFLKsLLydGHYvXXQvIRA8KKSmPYKySW1GZzOtCTOwGGSlMnVvSNDrGPMsdq2GwHWxlLga ai7ONYuTLp3UdHlxZDBiPVtbOj1ufLT5FnKyLNAPRn1CbhGbVMNpILAKPVfhSULgAUqeRVGaTZJmELKk QEZ2EyVnMqL4IbGeMdvvPFY2GLCxSwX2T2ScZGNuXH QcLaRaTcMjVWPnAJxpBhSoPWZaQWM4PGJ+FM7uLFv+Qr2Qj6FyqwF7goAfPIc8KzVcGC5PEEQPM2CUXx == ID Date Data Source [id number] 08/03/2020 06:28:00 PM EDT [facility] Name Value Range Interpretation Code Description Data Sumaya rce(s) Supporting Document(s) Nursing Note [facility] XQKJBi2eUdZGHqHa82/EQSklLUBdn5MsDDprEVo7FFmkXCOdM0UfYWV4xF9lRYY8WBgEFlSmEeEkDFF6 lbm [file] dGE+DQogICAgICAgICAgICAgICAgICAgICAgICAgICAgICAgICAgICAgICAgICAgICAgICAgICAgICAg ICAgICAgICAgICAgICAgICAgICAgICAgICAgICAgIC AgICAgICAgICAgICAgDQogICAgICAgICAgICAgICAgICAgICAgICAgICAgICAgICAgICAgICAgICAgIC AgICAgICAgICAgICAgICAgICAgICAgICAgICAgICAgICAgICAgICAgICAgICAgICAgICAgICAgDQogIC AgICAgICAgICAgICAgICAgICAgICAgICAgICAgICAg ICAgICAgICAgICAgICAgICAgICAgICAgICAgICAgICAgICAgICAgICAgICAgICAgICAgICAgICAgICAg ICAgICAgDQogICAgICAgICAgICAgICAgICAgICAgICAgICAgICAgICAgICAgICAgICAgICAgICAgICAg ICAgICAgICAgICAgICAgICAgICAgICAgICAgICAgIC AgICAgICAgICAgICAgICAgDQogICAgICAgICAgICAgICAgICAgICAgICAgICAgICAgICAgICAgICAgIC AgICAgICAgICAgICAgICAgICAgICAgICAgICAgICAgICAgICAgICAgICAgICAgICAgICAgICAgICAgDQ ogICAgICAgICAgICAgICAgICAgICAgICAgICAgICAg ICAgICAgICAgICAgICAgICAgICAgICAgICAgICAgICAgICAgICAgICAgICAgICAgICAgICAgICAgICAg ICAgICAgICAgDQogICAgICAgICAgICAgICAgICAgICAgICAgICAgICAgICAgICAgICAgICAgICAgICAg ICAgICAgICAgICAgICAgICAgICAgICAgICAgICAgIC AgICAgICAgICAgICAgICAgICAgDQogICAgICAgICAgICAgICAgICAgICAgICAgICAgICAgICAgICAgIC AgICAgICAgICAgICAgICAgICAgICAgICAgICAgICAgICAgICAgICAgICAgICAgICAgICAgICAgICAgIC AgDQogICAgICAgICAgICAgICAgICAgICAgICAgICAg ICAgICAgICAgICAgICAgICAgICAgICAgICAgICAgICAgICAgICAgICAgICAgICAgICAgICAgICAgICAg ICAgICAgICAgICAgDQogICAgICAgICAgICAgICAgICAgICAgICAgICAgICAgICAgICAgICAgICAgICAg ICAgICAgICAgICAgICAgICAgICAgICAgICAgICAgIC GzHFUaGQPfHLWiOSSmFBZcLBUeYYAvUQe2Y2vkJATdJGHxXI7bFJj5Dl2+UXhOMoRmKBV1qtEmtM2KDB 4dp5DkMPguAVGvl7OpVTc8BY2XCLRaYStuDE0LZPwwoo9XQGXpODQbuONUl1kgMhWzVUW7TSIqUepxID 6LYEVpI1bnmuXtRVZrLZYKLK3YDkFsY4IvdW91EGQG Cj4+JNcujvXqRfcYKgRzPGCyq1TxCTb8XW6GFZXiAcilk4GzPlJxQRBDRKfdIT3MQNF2TBUzBMDfWc6S JIQoF777rcBcPH1KMb5RHfIsFZ1dxt1VYfPaLZSfJwoCUeq5EIboLU4PxJLmTGwTuHCccT1dPR4ooUOo ZkmoXHcqndHjBYcwp2V8iBSdRDFRSwUnzUUaLH2vTA 3gJGOjXCO7UuR6QNDKAH4DDLRwFVLvuADoEEGmPPALKZ9DQCtrPNJ1XqjuvoAxbLAkVLvfOS2EQYCfxf QgMjIgMCBSDQo+Jw7VWV3pt3MbSTqdQZKcVB5vnr7NCEdEYeKwW3D9tDMdK6W0GHtrAl3FSFGoZNXhKh OwZIXFTMpqKN8MQR7ucpN1JB3WoTGcUXWsXWLatMCu UOw1Q20gpTXqUUpwKJ0SDTT+Savannah+Yd4VTMAgIYEeUAPbZzFvMLBMJuRnA5WxS0HQb5DiW2JsDM55oQvm flWiXZlqVJ5HZO2hBYHyEOESXX4GyRGhbG0gxhXbAxUdJOUVEaQqD26fbLWeESOsTRCxSIWoTr0DOIGu F0SfftWuxIzxctRnGUFjNLBQDD5XHLbpogEwiRUebG nnPE23lMnlHE0PUl7SYtUfOR6nek9NjCYpOa5DNIJtSQ3DJVUlKAGfHZSjIMB6TRElEtQzFQldYOLeOU CpKDB3CHSlAPIiYI1GYlXeDMQuAQu0YYOaDQWbGHQigw5RWABkLJWrTXZcVPAoEVMkQLGiJRrlPVIoYT XcUVJ9HBXzAYYqXU9NEoIoGEQeDUIiXDxsYZImRWVa st5ZCGUbCAKbDUNyTJJqGLWnKQDqAKouLZLzQWWlGOg3KKUcIWDcES4MBoNsDGQoCUA7NAEuYXQnRYQn rq8PBUYqZZBeHvj4WGVvLEGbGJFpVDjaGWUlRIGaJPQ0SWIjNRZlTU5BUvIlGWGhKGMhKjQhICAhGHMy tt1NVLOqSEUhUQQmMpWvPRDeEBPeUOcbTPXjKPV8DP BnXERhMNHpGX9HViMhLKAoAWT5VvnoJPKyEFXypn9BXKAvENFuKaN5CyWcBYAuRZSjNPvtXHGiFYL5Fz C6BDPaKGSsPQ8JLgHyJIKdNUf1LxUiLAQnPMXjjn3TQNWsRNNlXRGmZUExCKDeNQFbJLmkBMWvGAB6VC slFBWkVHIhGF7PVdJvAIChWFw9ReBfLUInGDSrpn0O IGRxYQDbYRN0KPTaAEBaBXSqSFrgIFRqFUHpXzX6CYYoYHFdVS2HPqBtQJIfGgO0NYuoXAAiFKHehv1R PIDeMFMiUWmxFqIaOWEmIGGcOAr8ehUdeTXbIEd2DB6CC7TxzhUrLcSWPs7Kp139EJZ7SGTrSz4CJ2is Xw7jRPFcPDRTJx5BATz7JTU7KUG0PbHwCXN4KMNyUC HrHbSzVvD1UITlJWKmSGx+LVvvQtYjTHadEXE0Iim0OyS8XWHvHFKjFpQvC2JoB0WeGY8xRAEHMy7+DQ xyfNLpdDxaKYHYSpMwEXqvHRbhNNIXTy8W ID Date Data Source [id number] 08/03/2020 06:22:14 PM EDT [facility] Name Value Range Interpretation Code Description Data [employer] rce(s) Supporting Document(s) Care Plan [facility] SFUEHm9sTkABPeCc07/TTWddSBSys0CkZWrrWDt1ZElgWUBjM9PaRUJ9fW6wEXJ6UIyMFjJaUoXhGCF7 lbm [file] ID Date Data Source [id number] 08/03/2020 03:09:07 PM EDT [facility] Name Value Range Interpretation Code Description Data [employer] rce(s) Supporting Document(s) Progress Notes [facility] TIQGIp6hTrJMHtYi53/WCBkfYTAap4HqPTccSVo1PJpzMMRdQ8YlJMU2zQ5dXYO7TFmDAbTjWmJpSJU8 lbm [file] ICAgICAgICAgICAgICAgICAgICAgICAgICAgICAgICAgICAgICAgICAgICAgICAgICAgICAgICAgICAg QMTtARDcJNQaNLCzYLNtCABpWRKyTUOxIR7OVRCbWIJvQKCpUZFdJTNpKBVuWMKqTPUjEJVbRCUlLVDo ICAgICAgICAgICAgICAgICAgICAgICAgICAgICAgIC StCUEtKYZdPMKpCVAfOPVmJCLlFUJjNIFbXYMoPAJjDQLaEK1SPFFxSWPtLYZsHTUaRMKjOUPkUVJkRT AgICAgICAgICAgICAgICAgICAgICAgICAgICAgICAgICAgICAgICAgICAgICAgICAgICAgICAgICAgIC JxXQBjPWCsMALwCQYpTCFdSL1IJWFlTYJxIHGwCRKu ICAgICAgICAgICAgICAgICAgICAgICAgICAgICAgICAgICAgICAgICAgICAgICAgICAgICAgICAgICAg TKRhOTLlRYMpNOKcDZVzMCTrMKHeUGMyDXZfKL9UUBRyJVNbMWEvCXSkTEQsSVHqTXFwIQSmIAEgUBQw ICAgICAgICAgICAgICAgICAgICAgICAgICAgICAgIC QdCNEhEVUfRJKrTXAgDDRdKTOgLQDsZJAiCLNeSUCpFBEeKUGtHC1IPYNmIZSqKVHdNNXuEQNeSEZqGS AgICAgICAgICAgICAgICAgICAgICAgICAgICAgICAgICAgICAgICAgICAgICAgICAgICAgICAgICAgIC ZwAGUfRZJkIVBaMKBxLRAaEGHvQQ3XSEGsZEVnKVFm ICAgICAgICAgICAgICAgICAgICAgICAgICAgICAgICAgICAgICAgICAgICAgICAgICAgICAgICAgICAg RDXsZNDdZFYmRGDeUIHoLREmYHCtFLWpLYIxJMPuWD6JAVSrLHDhDJEnCUAbVIFuKVVfVLAjARDqKXJc ICAgICAgICAgICAgICAgICAgICAgICAgICAgICAgIC TvKSOhAVKyKMNaMRQfGFXrKTShXAYxKLSbJEHeSLHxWSGkXALmGJVbZP9DHYNqYBGvODTdQHBmRQNpDO AgICAgICAgICAgICAgICAgICAgICAgICAgICAgICAgICAgICAgICAgICAgICAgICAgICAgICAgICAgIC RxBFAbLZXjPBKnRWOcCOBaBDLnSIXyFA5ADFUdCFZg ICAgICAgICAgICAgICAgICAgICAgICAgICAgICAgICAgICAgICAgICAgICAgICAgICAgICAgICAgICAg YVMtHZXaYYRtSYCwBPMuATWoJUTpBNMrZDUjFKBhVLYqEN1TOH71yPCdt4O8QBWnWU9hhqm/Fg7CXXfn kpQwtYDdLM3GNcYiMM9cnz3AWhKcFN6tml1XCFaNCl JnM3L8fBXeZQFfDHDJKgWlH54cSJmkKl90KJszLMAaTgTbINy1Lw0KUsYbC9fsLWKfBnO1JVJgAtG1TZ QqCwY8KHPgGsHaAJdoHG8Nk2YcdPYoAKm+Qr7FLP0no8ZqHPyhQALeNI8gdy0MHCdBZxHeM1XgcmR8JM RpXSHtUj4QZYMsWYLjlMCaVSKiMMBOLoDqH2ThpV02 IDENCj4+NZgtseFaUhrZTlVgEXUec0RiIVq7DF6OBWHaEAw8kVUpWQAxJ9Rwp8TmQc17JPYhWqgdUzMl n7AwhiGjF19izLE8QDQFNBMjrLSvXD3vWH2xHIEiSYMvVeHwFNRVUR1FKWMaVWBniMLlQSFfQAFPMM5P RWbwIPM4SvzadiRddGEzHJjzRH9CLWTisuUaVbshMV BSDQo+Iq1YXW1ib0PtHVlhZWDvSX8eul8HFFpAAzTyY2X9tEFiT5B6PJtoDk3NXCYgQYIzGzxsSLNFMY tsEL1RWE8koqH5OE7SkFLhPLAoEBInoIGaHBx3P86fsDSnKSozHG0QHCO+Savannah+Vb5BJMGjWAIoOYEkEg NePOGLPpKkP9PdO9ERe3UmJ8OfNE69vPhcceUwOFdv NS4IHF4wLHHvPREXPH2AbTGebM2hbvRcBLHwSGKSFxPlF59kpNDzFULaHCR2BKAiXd9VTLFtI1PznmIl qHuhnfOgFXXgWFMTSK7QUYncsoDioIFvnZqxZS58uQfbPL8MLp8NZsBcBY3icn6FyKEyLh9FLHNdGy6L LGHlVUZoCNHaCRN0VCBxNrBiIPxbYUYqXETdFPN2AR DrJRPbNL6NRqHzPBWsHYieYAMfAFYrAXYjwy4WBUGdBXPiCEN5OJDvGWYjNTQdIVayUQIsJDCxZOB2ZN ZmDMFrGE8SRpDyJZVaKPEnWJSbLNKxVUQetn9TSCOhWZLhCtMjQUHxQGVyLBDlMIbrPTVnWJR7HVltPO ZvXAApMV8MZoSsAZXtYGAcNJSnBBHaANYjcf3CKRKk PKKvSphwNyXoUTGlHZKxJRskWPNhTVE1BPOjLBSbEBPkSP3PTmQzSBYrLKnvJcflYEVyRIMdhs3VLESd WVIkQKU7GXFtHOFhNUUfDHwwGBSeZTB5MAL5ZQDsNFIvPU4JVyEqEGMeAQX3FHfdJANjTSFlol5KZRIs GTShQYYfUoMtBNJoWIRlBWxfMESzXOVfElc1SGLrLG XbMP0THfVwBNJlPKT6OEhxXLXmQQOugf8OSJBzPPSpORp3UVZbCTRwRBGdUZxzHFNhRSSgPES3SHNlCH SuOO6QDlGoQAOwUUIpGIVnWLPiCQNbqn9NDWCiRZXbZtUnGYOxPOTeUJLtBSpiSNMtDRCsLUc5JEAlZU ZjRT5SVyCkXTWmDJgyWYXzDRJvRIRdcd5YURGeWTBw YWQ4VlOrQFQmEPUwUClqLAXjVLO1AYt8LTHkYIXcCF9YPhDiJUWrZKmjFfStYPElLSZmwi4UJJFqBAQv PXW2FoUeENSyDEZoHVmdDOFyIGC9AlR8AWZxPOAcCT2VXuKzCVZnVxIeZWKiPKByQFIpze2HMXQbWPEd BBRpQfPiLOZfWSCnGBweNKKvABBdSql2RBHnRDTjXF 6DDfVlMMybZMXMAgw5CZzeR3n9NVKqHu3GF5Tjn3WwZrEnYCOTREzjQT1tcpVoKJXnWz8DC4cADqo8QB X0Z1A8HlrdOIbfUpJ7TeF2V1ZbCDGnTFGeNUH2Xf1jNOGxQfwzBlc1DSK7BDFoFdqkRrD3NgN8WlOhOh I1APUdRwGhIH2EHy3CQfI7WQT3pVJmHr3PXqZ1AaNKMsTpUM1EJOe= ID Date Data Source [id number] 08/03/2020 01:30:40 PM EDT [facility] Name Value Range Interpretation Code Description Data [employer] rce(s) Supporting Document(s) Progress Notes [facility] UUTIPr3uNjQNNxLe07/ACNrtSDHjl5FxNWfdNDe8YQxwJRYpG9NzYDD9xL3tBIN6GSfPEcXyDgWmKPM3 lbm [file] LVV0BY8yBZKSDz3+WNsfiLBkrDbiPDPEVwW9DqV7FNotGFQILa3V ID Date Data Source [id number] 08/03/2020 12:40:37 PM EDT [facility] Patient: LELAND DIAZ : 9 [facility] [place] [facility] DOUBLE [...] rce(s) Supporting Document(s) ID Date Data Source [id number] 08/03/2020 12:19:44 PM EDT [facility] Name Value Range Interpretation Code Description Data [employer] rce(s) Supporting Document(s) Progress Notes [facility] PFIBQz4yJsWEWeLo63/OHIbkKDGzs0HhOWvbTUb2ROlcFYWpT4XtQNK7hI9iPYT3RYxDOyDyCdDwPEX8 lbm [file] AgICAgICAgICAgICAgICAgICAgICAgICAgICAgICAgICAgICAgICAgICAgICAgICAgICAgICAgICAgIC AgICAgICANCiAgICAgICAgICAgICAgICAgICAgICAg ICAgICAgICAgICAgICAgICAgICAgICAgICAgICAgICAgICAgICAgICAgICAgICAgICAgICAgICAgICAg ICAgICAgICAgICAgICAgICANCiAgICAgICAgICAgICAgICAgICAgICAgICAgICAgICAgICAgICAgICAg ICAgICAgICAgICAgICAgICAgICAgICAgICAgICAgIC AgICAgICAgICAgICAgICAgICAgICAgICAgICANCiAgICAgICAgICAgICAgICAgICAgICAgICAgICAgIC AgICAgICAgICAgICAgICAgICAgICAgICAgICAgICAgICAgICAgICAgICAgICAgICAgICAgICAgICAgIC AgICAgICAgICANCiAgICAgICAgICAgICAgICAgICAg ICAgICAgICAgICAgICAgICAgICAgICAgICAgICAgICAgICAgICAgICAgICAgICAgICAgICAgICAgICAg ICAgICAgICAgICAgICAgICAgICANCiAgICAgICAgICAgICAgICAgICAgICAgICAgICAgICAgICAgICAg ICAgICAgICAgICAgICAgICAgICAgICAgICAgICAgIC AgICAgICAgICAgICAgICAgICAgICAgICAgICAgICANCiAgICAgICAgICAgICAgICAgICAgICAgICAgIC AgICAgICAgICAgICAgICAgICAgICAgICAgICAgICAgICAgICAgICAgICAgICAgICAgICAgICAgICAgIC AgICAgICAgICAgICANCiAgICAgICAgICAgICAgICAg ICAgICAgICAgICAgICAgICAgICAgICAgICAgICAgICAgICAgICAgICAgICAgICAgICAgICAgICAgICAg ICAgICAgICAgICAgICAgICAgICAgICANCiAgICAgICAgICAgICAgICAgICAgICAgICAgICAgICAgICAg ICAgICAgICAgICAgICAgICAgICAgICAgICAgICAgIC AgICAgICAgICAgICAgICAgICAgICAgICAgICAgICAgICANCiAgICAgICAgICAgICAgICAgICAgICAgIC AgICAgICAgICAgICAgICAgICAgICAgICAgICAgICAgICAgICAgICAgICAgICAgICAgICAgICAgICAgIC AgICAgICAgICAgICAgICANCjw/gSTyM3vtkJKhnxY2 V1heGr7OJj0KBG5cj9UzBVHxDCudyqYiSuuZQdGvBKZbEodFOgw2ZReuIZ3TpKPbV6FmT0HeZLbnMJ3R DXYqABTbsVPkYHMlUQGoAwC7ILOeLLafHG2CgAChORafJFVgSCEfDS8UZDHsX287ckUrPD3VWf7REhUv SO9gtb3OZdBgFUBmImnQLrd3XCtzPY3MuYUhjXObOs NkVLLKCaRfX0ane7IcPkHoQYAOCPxaOI0Te8QgxCOrXBm+Vf3CPJ1dh4RaYEggAhGaQU4drv2HMZiQSy HhA6SbnNusCYDxx4jrIUAqKG2kpFYlAJZ4XG8nfeleXkFbp3YxSXHfGATlFPUtQeWiCXGzJbjgTSCJEU yURkLzH7Qxf3GkHvC6NYDsMjDtEOfgCMEpMhO8UN28 xNngOX7ABPHaXXLbTF40DVN6QDPoRw4QHo8PQwPvEJ1knw4HZuwhXIBgGjcNPhj0VZfiUT6TzLBpU3Pb fOFgs3dKFhTaM5PXURDjBYEaLz2HSDJlQoMuBOTiLZgdIU2eISJmNSPJrXrhrmE2JX6ZQK0gkzJsAX1D YjJvWl2tUe1ENpHwW7NsF6DrAMUiPBNKDCexLY5MDP gvPS2sBI4Il6ERhZOhrL8ofo6HWUQzZLKsWjrsxy1ZHfwmO7T5hGtuBLGgIhWdMHXXCBchWE4TNJJkWB H0MMNlSWQaEKKTKjQvC81cSW5AT7Xrg31yWmF8KJRpDwHlRHxuJL77hRwedhJuvBGhqKoaWH4IOj2+DQ plbmRvYmoNCnhyZWYNCjAgMjgNCjAwMDAwMDAwMDAg JsX0NvLlQw9SXQNuGDHuEBBfOuUwLOQtGNBrVHraZYZuLVGxYSCpRMBtGEQhBC6GMqKpKJOdSfH7LQZc WZQxVQBera5QWZBrKIEkKDV3FrQzXKPaOVHdVFfvERXeUKDbKpCqDTBkEAUoGG0PCrRpMGDsRSB7Cdqv GLFgIXMyyz7NVEYkWMPnLbR6LVBfLTMjIILgFIavHT ZlUJSnNLl1LCOkWBYoFV5FGkSvAXXhTEO0XvDkZJCjVEBrff0RRRXgANLjOLtfVFWpSHInPLIdZAqfIW LeZCC0LOD9LGEcLCAeDN5BTqBzYUUtJIXlVLjkSIRhZBGtbb9IGRMjNILcMbK1PKJmQSMjLACuYEemKC DoAGF2Dak3FNQnNUNhGE5WTjCgEVOkSPi8OTRzJKQt KHOzaq5OEEFpQNPiWKPjBfCnJMMrFYMyXYxqRELlUGH8DpP5HSCzHOLqKK5PSoWqXQFmYPjlUQGjSLBz ACPfuu2PZQUuWITxADLdTiRcKHCeZESfTHsdYLFtUWO1JwgtYXOwOJQmGR0BKoUhWBOkEhG4ToJrPZTb OTTffz7LIBLgVZSzLZsiOAVsZMXnBZBdEAnwWCMeMO NnSBfvFKUmQNLmUU8HFdXjPKKgDyE7BLBeRNIfQVKolf7FUYEtGKPmRls2HHOmEZBbAIVjNDfxRXNkNB CpFTVyEPRwRIPbPI0VAkOsTVYqZaXgBhGfLHFuPZFcmp1CwWEkpGrywz8TBBnGCk4BnPivZXI9NVfsGg 1lcJHmNeVtLATWEk9ByrUoPLTvYMPTPNfzBACjRRd2 S9KkSnKrRfI2KHN5RTO5C4NdSomoVqP5AKRoHWAlIxL6FGltTMKkECT8HPadVzg9SPpyPdHeBYQ9CwFa ZDNlYjM+TJ4jLAi+Jw5Zv7WsnoS2baQbFBhwJrIlYS8KVMLZJ1PFOf== ID Date Data Source [id number] 08/03/2020 05:45:35 AM EDT [facility] Name Value Range Interpretation Code Description Data Sumaya rce(s) Supporting Document(s) Nursing Note [facility] KNOWMw0jGoZVZaIo64/KHUmsXMDvq8RsTJhuIWc7OPeyTFYdF3FxHOO4zO0sFWJ7NVsPIgFzAgAtXAY4 lbm [file] l4WFW0MKgmGLJQWl7X ID Date Data Source [id number] 08/03/2020 01:57:24 AM EDT [facility] Name Value Range Interpretation Code Description Data Sumaya rce(s) Supporting Document(s) Care Plan [facility] QPAPUh3oRvHMWjRa46/MIXasLIWza3EqFUzpWQa6CRmiYTNiU2QsJEH9pY2aOXJ3NObNEeJvElQqNSV0 lbm [file] IDggMCBSDQogICAgICAvRjEgMTEgMCBSDQogICAgIC FyLhRqCJUmKGADFEbzNTXnWKShBrWrEFylNZGQAb9FWkFtGHNfJR4wsaUawVN8ROB+In5XDJWgIF0DmO FTO2NyvCEtYBqrI8FCUT1DEDG0ZA1BjZOrAS5PuRQJJ4LxuGDeFt7qZOPxv2AwWg2oK6FEBULBEBXqXC jiJTafOCExMQs8B1G3QREjQ3CIJ901dUUdbZs7Jf6u B5GCMUaEKgKrWAbsOLcxDKJwUBi2Y7D1WFLgK1FTU6AfUpNtraBwF2C+XzUwHDWRHD2ZLRJZZLf5O2R0 jKBwK2P4pSiPwXE8GZ0UVS5JzBYmcRQfs69+DzFVUxLpWDZwI0WVXCUVSqFdCMcpFPffPSWdTYk4P6N8 DHJjG1ADY2utB2w1RL2+SbBCArYvMAIdQx0YLvQtQn 6FAsLcBY9gqg4BNIniGJYxAipXGll7G6kdmeo3tTQkMxV9E6Q7GvI9zUCjGU4NX2S9bFIjVSX4UIVevF E+Ur7Gb5OeGCLrCOp9F9ikLJMmGBTnXwMmeT55S++9zyccrKU3A4c3IRZSeRYszXsTnkYdC3oNBUR5b3 M5ZCc/Wz3KKHW7wOt9aXMkXZAtWJg9qP1fqAy1CxVq ZF14EIEgZVaoqF4pRov6R5Enq1UjVf0tAo2mhNAtSs2TZvLjAMR0npVxAyUMZxO0zHipmmsvYHN4F3m6 oHG4Kj54g4chrsSzv4HaRbB6EJgoBEJtRuNyhgMoUKG6zuCrmV4eakDsWa7COAHePDrcpvAyCwZOJr9U ShRkHU68RmszkC1mbDI+DQogICAgICAgICAgICAgIC AgICAgICAgICAgICAgICAgICAgICAgICAgICAgICAgICAgICAgICAgICAgICAgICAgICAgICAgICAgIC AgICAgICAgICAgICAgICAgICAgICAgICAgDQogICAgICAgICAgICAgICAgICAgICAgICAgICAgICAgIC AgICAgICAgICAgICAgICAgICAgICAgICAgICAgICAg ICAgICAgICAgICAgICAgICAgICAgICAgICAgICAgICAgICAgDQogICAgICAgICAgICAgICAgICAgICAg ICAgICAgICAgICAgICAgICAgICAgICAgICAgICAgICAgICAgICAgICAgICAgICAgICAgICAgICAgICAg ICAgICAgICAgICAgICAgICAgDQogICAgICAgICAgIC AgICAgICAgICAgICAgICAgICAgICAgICAgICAgICAgICAgICAgICAgICAgICAgICAgICAgICAgICAgIC AgICAgICAgICAgICAgICAgICAgICAgICAgICAgDQogICAgICAgICAgICAgICAgICAgICAgICAgICAgIC AgICAgICAgICAgICAgICAgICAgICAgICAgICAgICAg ICAgICAgICAgICAgICAgICAgICAgICAgICAgICAgICAgICAgICAgDQogICAgICAgICAgICAgICAgICAg ICAgICAgICAgICAgICAgICAgICAgICAgICAgICAgICAgICAgICAgICAgICAgICAgICAgICAgICAgICAg ICAgICAgICAgICAgICAgICAgICAgDQogICAgICAgIC AgICAgICAgICAgICAgICAgICAgICAgICAgICAgICAgICAgICAgICAgICAgICAgICAgICAgICAgICAgIC AgICAgICAgICAgICAgICAgICAgICAgICAgICAgICAgDQogICAgICAgICAgICAgICAgICAgICAgICAgIC AgICAgICAgICAgICAgICAgICAgICAgICAgICAgICAg ICAgICAgICAgICAgICAgICAgICAgICAgICAgICAgICAgICAgICAgICAgDQogICAgICAgICAgICAgICAg ICAgICAgICAgICAgICAgICAgICAgICAgICAgICAgICAgICAgICAgICAgICAgICAgICAgICAgICAgICAg ICAgICAgICAgICAgICAgICAgICAgICAgDQogICAgIC AgICAgICAgICAgICAgICAgICAgICAgICAgICAgICAgICAgICAgICAgICAgICAgICAgICAgICAgICAgIC ViJVRlPYKyMHGqMOCfUOEtZKEcUXFxZDTpEECvKNNhVSCfNNj6T0mfLISfOGGnFO4cBQc9Xb0+DQoNCm StDCV8ehUxuA2LVJ8dd6TfULqyQRTns5YeKTk9NL9C LCCwZChzEL3RIAxvni0ZKNHeGPYtiEVWj7lwPuAiIPA4TMSlOfobIF2JXOYkH0viacHcBYCsFOALUK5Y GvTjT7NirV89RGQRFw7+DFcfiqEfDbwWJnBxKTLka8FnXJp7SF3WCTClRvpfg7SxMtFyAULHVKxkUI6I ZEM0XAPdTBMgVv1YUIJgS236abOzKS5NCd2WVgQuPV 7mqt5JJySbXOEcPfsJYsg9NGkxEF8IjEPkBYePQSVnOVDvGL0uPjtgDTcvgHFYvDBmH3DxVJXKKyOlrX NrZO2jPX9cBGLrOQSuJoZ6UDFMQZ4ZJKHmIAIkzWEfQDMgXYVFXM7ZWBrpUJH0UchhbwMjkCPoRRguZY 9QYXJlbnQgMjAgMCBSDQo+Vv8NHH3vf3CpVJwtHrUy VS9koo0COMcLBaPyB0U1lJUzZ1G0DGckAz5WRPAqFCVdNOkxEYQUGQmuCX2MPB1lkbC9ZU6ApANqESIb RAByyAXaAEe2X22tyJDtAWhoYH1QBFU+Savannah+Nf8ZKNEcNDYwTGMrIgWqCNJAGiPzE5OcO2NGd9CsN0On ZB32kTkcoqWrEZxmCY3AQG2wNQHmZYDTRO0HbOQxfQ 8xzmCuWSOyDRRSVcAkB99azBTcSOCbHJB5KLXyNb1CZZHhN6PsgvQrpRnihvLfCHQkVLCHWU8JPTyphj HrvLDwdVctIS23xEypLT3SFu1NYcQzVH0vfw0WvIUpDn8SRSYoZr1SUJBjTQDnHKMyDZH8IEPfFfJsKN weIQUcFCBlBKE6FDGcJCMbQN7TNlHkWRHoNSp5DgGo GEAzRVXhrl9MVCXqPAHpRJT7KVNzGDXfKMQlJUmvODMbDZFkVQL0QDApQEQmHX7EYkFiQAMzDBWhFCWj KXCeNPVkhe7VXGZpKNNtHfVhMEFtDDOkTZKtBMnyQXZcFFXqONEzIDOzSLJrCC6CJnLxOTZgUFZnObYe OIFfLFPvwb5IKLViMDUyYqI9ZUYxRFNjPZSqFEtqDO LiMCR7FGE1NGXdBDGhEP5DJgHbKGClYID6BCZuHFBdJRFyoz9UQDDlBMLiNOx9LrMnSVBcIWMiSBkgLF KmEDQ8KIM5XDShCTAvMA9VTqOuLZFjCEIbMQywZRYdLTUmat9XHXCvNFSlLnW9IyNdLUFbDDAiPIkrTC DfQMJ8FxK8BUZzSAHvOK8RLpUrOLJpQIm1ELGuHWKm EDJqxy2GFDPrRGCeUxCaDTGoMVFtQFRcQSliDJRdPFC9YZXsKJZpNOBsAC4TVvGmSUFqDVl1VqbxHICr RAKjlq1GDGIjATPcNBM5CCWxFTYbYKJmRTxrKREyUOL2DvjlZWCqECUxGD3KSaThFZedJYQAImz4BCpq Y9h9WIZhOi1VL6Squ1QsPcDhNGNILFglZS0nvzUxFW JmDb2VU0uFAxwxDAUiKCbrCbKjOTSdWZB1AEOvYdL3GeA7Amn5GdQqPB1gXGN4HJGcARHeJjQaMTU2JI olVBX7CtHdNmS1JwGnCsOhUpZqBM7XNm3JCxG4QDZ1cYSjWm6TCVnkIn5QSJAMU7KANl== ID Date Data Source [id number] 08/02/2020 04:40:[address] [facility] Name Value Range Interpretation Code Description Data Sumaya rce(s) Supporting Document(s) Progress Notes [facility] PSGRNl6eRcEEYhOo30/QWMdwMUDel4AoOYxmMTg3CEqdLKOsK2NfHCW3qY8sKMK7FFrEJlZaBoSxUNQk lbm [file] AgICAgICAgICAgICAgICAgICAgICAgICAgICAgICAg PPGxQFMaRVKhEKQkASVyTIKwXAChWY2YFVTwFEWeFKDeVIZmMRQwUHAjKVBnOJOyXRUvTUXoPPVzRRLt ICAgICAgICAgICAgICAgICAgICAgICAgICAgICAgICAgICAgICAgICAgICAgICAgICAgICAgICAgICAg MTPrQG9LPRLmAEFlYBJaBHJqXLSwCXWhEPJzSJIlPF AgICAgICAgICAgICAgICAgICAgICAgICAgICAgICAgICAgICAgICAgICAgICAgICAgICAgICAgICAgIC BjUCMuBVShRBEvXUSiZP3JEXIhUDZyPPWsMERdFLUeYWLnZETzYUNdDPYvKMWbKRAjALIaXUKlRZIfSL AgICAgICAgICAgICAgICAgICAgICAgICAgICAgICAg YLNuIUSfSXCgBGBiVUUbURRjGAZnREFdUC1UAOSeNFIcPIMpQQTaIZEpNWBxROPhPIFiJWAwAHHuRMTh ICAgICAgICAgICAgICAgICAgICAgICAgICAgICAgICAgICAgICAgICAgICAgICAgICAgICAgICAgICAg JWThQHSmMK8HWLCyWZUaCEGoURZlZQKkSLWaAQToRK AgICAgICAgICAgICAgICAgICAgICAgICAgICAgICAgICAgICAgICAgICAgICAgICAgICAgICAgICAgIC UlIGXwJGGkULGgEZZaKABvEJ3AQGNnZLLmZPTqAEXbPFXyAWEtFBRkUPByLYUhDPIyQQJhZJFlPTPjRN AgICAgICAgICAgICAgICAgICAgICAgICAgICAgICAg CKKgHQQiJZCjUBUwTCPoAOPyDYYxIBXiOOXnJG1LWXEiJIFrSPIlLWXwNCPzBAYbWOFvLKWiSTXlWEWp ICAgICAgICAgICAgICAgICAgICAgICAgICAgICAgICAgICAgICAgICAgICAgICAgICAgICAgICAgICAg EVIlMRRbHLImLX5BBQOgQSQhKRXnWWIrKGCzITZhSI AgICAgICAgICAgICAgICAgICAgICAgICAgICAgICAgICAgICAgICAgICAgICAgICAgICAgICAgICAgIC UfXVBhXAUuQSToSQGpXLFrUEFbOY4RSAJqGYOePJLlMYZiXVGpLITlMNWiYANzPPXfTWRuEZOgXWAwNS AgICAgICAgICAgICAgICAgICAgICAgICAgICAgICAg EXHlAXQyYCQnDFVtPKDcPDCtYNSuEEVuNJTkFCZkSP6PRC25lKXxv9M0PZOePO9gsmy/Xv0LWHyxslHo kSWqSU3EAjHhNF1gwl3XVwTpEC9ecn0EBMrDJwIqT1P9pKMpXWGqKYROYoTtD55sEKgvXy82IFblTWDe HxVySQz9Re7PRiGfI3rwKZFnTdU5WQEsIvU4SWRdLe UuJTeaIB7Co9OemGFdLTu+Kf4ECH7lj5RjSTmgOBJcFX2tsz3FBAwCYuWbW5XphuG5TRP0CAFaOh8ULJ BlCETmsTAqYsYtVTLLYkSyX2IehD40DPBYHy7+XPzplxBzHaqXKoP8KOQmw7FuSFu9AS6TVPTnGFu1lA FoRDYbQ3Ynf7PpAa47AQIvEwykT5ebydTeAUw4xf8w MF56Z0ayORDXINVgnAStCL0uTd7nKQUpKUJdIyObMQFXYL1BUBHjAOBvhDNyHZVlWMUNDI6GYAumWTK8 QyaadbTojSJzKAcuRC7UJIObrpWzOnHcWLZGTYu+Rm3QLU2yz5PzFDieOeBsVQ5trz2UUTkLBoVkS6F8 bIStX0J0IHrcTm9XPPBbVRUnGzXcTMTNKJsuPP9WBP 6lmrY9UR4SeLBySJDeVEWbjNIhEOu0B79ffMYtQVetLU6SRYU+Savannah+Xh2EQWQtUQMoJOQuDwMhLVHHSg WvW5QaU8MOt9LbE7JsQW35eShffaXzYZwzUG6QND4zAFPwZMLHEM2JnLSbiI3wszDbESOyCDSFWlLcV1 2wtZZjKSBuNPR0ZAWrRc7BONQhY1HfrbEryCvxeaDs WOMzLUVNHC5QMTgwtpEvtJRmgTdlMO35oBmdGO0BMk4OJiReEV9iqm0TeWTtUq8XQNAuJR4DGRQpILGc YSHfQHN9NEPgIyQwTSthNWRjZBXgXHJ7ARAcMGAuVR2YBvNdCCGeYLZ8VYEsIRAeQTFbqq5HGGZiHIGu JUMuEIAdIKVzJDGuHOaePPEcAVAyNEK2FJSrUWTtTZ 1OUoJsQTPcOVQoENgkUBOfSBNdrn1FDTTkFLWvPyM5AAEnHJDgYBDtGFjwZPEeRNY6DGweQCOeFKJdKM 7KPgZsYUZoIQC5XRwpMAKzCPVyfg5YXGQjICMhSjO4ORYsSGOrTRYtTFgpIAIvKAD1NQE5GGJvWFTqWB 4IAfUtOPFyJUfmVZYfXXGkGJLctf3GVOPqUACgEMKc ZgXiPFXhBQEmQZhzHQQuDGP8FCx2EVBkYKEiXQ4PFyPsTFInKNncHMYtHAIwXIUnmi5XNDYaLRKtNSN5 ZPCjEXFlBCWtGVevMGRtKTVbBWZdFMPrGWElNO2ALnAmNSWtSMP0YyRaKBGrKSHign2YIPDeEYImNRS9 YHCsOVHxCYSfIWfdPVJuJHFiIOecZXSaWBTpXV3MIm JaNPSvTSPcJRAtGKVfXHUutf7DSMKoSENoDwE2VJFkDCCsNOKlWNquBGUeNNUzRsMyESYaVQSdCP4MUh RwFYArIIR4EoEoGBVwAITtis2YEKEjTWXqOjl1YRWqWVNhNWJbFEwvVEUtUNI5MmQ5PTYbMVEmEU1ABf MkYSIdJJN1LLJkDLIaCKQops0XXVSqZASjGIM2QGSz ILVaSFRyOCa0wuDezHRbRLm8QI3EJ0JykfAoDjtMMv4Zk265IDR5GEJwVz1TK9cxPc9pJMWlKLUKGm8L MSi7IBN1PaR9DKGjZaG8VExnAMCjIXYoPqbxNRM1UGI9LaI+WRl2UjXuRJu9R5IoSHw1FKHgNrY2OxP7 EIQ8HNZzDaRgFC2zABDCIr1+NVeyaFQdyBueRZPMWiN4Ghx2MRuxUGIRDl1J ID Date Data Source [id number] 08/02/2020 04:32:30 PM EDT [facility] Name Value Range Interpretation Code Description Data Sumaya rce(s) Supporting Document(s) Care Plan [facility] WHRZIp5yFpGHGiCf32/LYQpzPFFde5WlUYotMNp0IRjzFSBnH8RjRGV4hZ5wUJW5HPtRWkGkJgBaDLXb lbm [file] 3M6frf6J+j6OiaOw9PJm02VDMULyCn83rh35S6+buncher hand [file] AwMzIwMiAwMDAwMCBuDQowMDAwMDAzNDAzIDAwMDAw QZ6EXiKuRWKuZLP2UKaoIBBmFFEoil1SMEYeYJRjKVS4OeAoGFXhFRUqHQloAJMkVIZ8AsG7VBNiPKUt NN0LSqNbSSWeBPR8LgNpAJFySNMooy1CLWDvAAQwZlO3XVGnNYJuRANmDPncZBKlJZW9YGueQNIoJLNg LH8BVsTpWUXxUOw5JBBpJTCqRUKkmh7LGWKiTPAkYN Z8CGQrUEHeEMHsYLdvHUOmIYS5RZm7RURnNCXeVZ7YRcQcKJCqBQrpTvjgLTKxXXJaya4KCAXwFBYlKR UrRuSzVCPbNULeXNrzRHDjEXH4FMBuKHPiSMLwJR3VNiTgOEXjKhH6ACIeKCSjHXZiuk7RUQYpAUEdSM CeJPWmADKiYEXqTMybDHNvINMhYWUeYTKsTAFiDI1T WuSnZUBoNzWkQIQzSSFgYCCkpo0YJZHtCYIuBdP6JpIgTXLuHCWpZCcyHOBfHQThWzBaZAKfIACwOI0H CwWyFPBjPyG4GYkkCTXyJKAzuj2RlPZgaAipyt7PQDkTNf6VoIefPFR6PKsmFr0hdCWiEnRzEDQQBe5G lxHvUZBeGXELVOlvMNXcLVUeGDE0PHwhFbgdUqVkNs S5CorvLXU0TEI7XiL3IPVmIuO5ZeY5GcMqA4IaPPXxZeYoUMC6TSH5HSUdVVZ1BPM5RfU+LN8pAFq+Pg 6Kd2MqpxL5otSyGRdzIuI1Kj6NJFAUL8CBMi== ID Date Data Source [id number] 08/02/2020 04:30:14 PM EDT [facility] Name Value Range Interpretation Code Description Data Sumaya rce(s) Supporting Document(s) Nursing Note [facility] GGCKJy0xCqFTCjZg34/YIPtdIHEhe5DlFNriEVd9JDouANOhV7SgDXW7aJ6oSTX1JJgTQkIuSwVvIFBq m [file] XvPmYLd3GpDnIVJqOfJ+DB0aZAf+Tu4Sg2IshaL5piXpRJltQSF4Zr8PZRHJU6NRHz== ID Date Data Source [id number] 08/02/2020 03:43:26 PM EDT [facility] Name Value Range Interpretation Code Description Data Sumaya rce(s) Supporting Document(s) Consults [facility] MUMKZa1qBbEBFcFh84/INTbuGZWed2SsGIpgLUw7ABjvTDMyP8EgXVD6fO5yIBA4JPqMPxPdWhUkUQLg lbm [file] VPRg0K ID Date Data Source [id number] 08/02/2020 01:41:23 PM EDT [facility] Name Value Range Interpretation Code Description Data Sumaya rce(s) Supporting Document(s) Progress Notes [facility] XIMLXq9qYmRUPtKr81/IMKmrEZVsr8KaDSppPEm5CVtnCDJwJ8OtLVL9oH6cIUH4OYaIPhXjLoCzHILk lbm [file] ZvFA6QRLz= ID Date Data Source [id number] 08/02/2020 01:29:48 PM EDT [facility] Name Value Range Interpretation Code Description Data Sumaya rce(s) Supporting Document(s) Consults [facility] NYSTHp0xZkIAFdNz07/SUInqGTOyq6MuZWmjTPz5XTwkESOmC0NrVQH6yK9rQBA2AJcMJkAyLyJsAETi lbm [file] BFXd2xZOVnap5f/va5drSRGNrnrCdcXAY+wP4+I8LG+FGi8eIwFZs+xc0BiRpbSyVAf2+AOlTqezO/Event Crew Technician [file] +7TY20vwGHKib542jhG8otOcgr2NhRWgPb0xNO27Mc0WXmT+RECIO/fmF63jxbxu9dk0dE9dOTqVM6Qoh6K 4R+VIzRd+PFs2b03gpBEcHgKXhweyyCfnf14tH2J89V7pr2nLVTR4lna/3jy1fSzU/wSzvzk0CVcwH5g yQ8GaGrI+hOEHJVcSANR5kTXtSyKja78GRzG5K723E 7kL7sgB/wwIKHtBPHuIZMAQJ04Z319Q+H8WctCTBtNZRqEtjCyPnxs5T/cH+rM1L3qErasTUO99VlIfB 3rDQKoRm1sqEN2PusAeOgdDrTwmZIs0N84zKdE31IP74wZWZJAPFEc0F+3gr7K6hybabum3yC1IybTMA U2vuMYt6xnn1/lbTZ5cDZbGp5HpKE/ftAKKUPVuPa9 +M1PAh0itYn4WjLnlI83D5ySRVM+cA9WZIchKmgXd9G/FO4X5ucl+7QdiJpivO6WhTRWGUHvLc7zG8GX P0M+giTqSDImpWl99OY4sqt8+JC69+G1zE02CF61gglc8B/5vTc/g3ObF/zfCpn/xI9FH6I+lNzfF9j0 Tfk+SzPtvsxIdO2HgWI64gzPKfMeswC2Zq9mxPLLZQ QaDyefRN/wfHnem/RZT3IgeNLbOt+Y3nPVtUDS7HzRofjbc8/0eMJetbgJmic6C8ZfDBoGkRmFSbARY/ Q5eEwo75VW+G5LlZpVzgpuNjgLnKO35ScqjTsgXVZOD9gZXmEsrs/TzXt+SnbLtjlDnISZ8kP/BM5E49 hjFZgiPuNkV6vpg89/YCnQWhLF7mFLfepA4SnElSuV QbSTdiRyhPHZkVSfy84RoDtt6wtzh8jjc0nMctcoP97ocJwcu5O+20ReyLIXPuA+8Eiw76P9T0O9VHn/ Z7L1xCsvdoOJLL6/CQ7W5dbg9e1LAGnxfd5GxVi0GnNv0XVtRr+QPOaBGEEoM3DkwX/BonC2Cw4/h/sC ngF9j8vgPjgP3jFkEo7V0d3V8zG5j+O19zw8El+9qK pVKxubRlOZuQXHioBQjDr8yIKl+npCnm+x7OxqxfxpiX5K1mNuehNUn6cMc7nty3DNdTx70I3YPK+supervisor trust accounts [file] ICAgICAgICAgICAgICAgICAgICAgICAgICAgICAgICAgICAgICAgICAgICAgICAgICAgICAgICAgICAg ICAgICAgICAgICAgICAgICAgICAgICAgICAgICANCiAgICAgICAgICAgICAgICAgICAgICAgICAgICAg ICAgICAgICAgICAgICAgICAgICAgICAgICAgICAgIC AgICAgICAgICAgICAgICAgICAgICAgICAgICAgICAgICAgICAgICANCiAgICAgICAgICAgICAgICAgIC AgICAgICAgICAgICAgICAgICAgICAgICAgICAgICAgICAgICAgICAgICAgICAgICAgICAgICAgICAgIC AgICAgICAgICAgICAgICAgICAgICANCiAgICAgICAg ICAgICAgICAgICAgICAgICAgICAgICAgICAgICAgICAgICAgICAgICAgICAgICAgICAgICAgICAgICAg ICAgICAgICAgICAgICAgICAgICAgICAgICAgICAgICANCiAgICAgICAgICAgICAgICAgICAgICAgICAg ICAgICAgICAgICAgICAgICAgICAgICAgICAgICAgIC AgICAgICAgICAgICAgICAgICAgICAgICAgICAgICAgICAgICAgICAgICANCiAgICAgICAgICAgICAgIC AgICAgICAgICAgICAgICAgICAgICAgICAgICAgICAgICAgICAgICAgICAgICAgICAgICAgICAgICAgIC AgICAgICAgICAgICAgICAgICAgICAgICANCiAgICAg ICAgICAgICAgICAgICAgICAgICAgICAgICAgICAgICAgICAgICAgICAgICAgICAgICAgICAgICAgICAg ICAgICAgICAgICAgICAgICAgICAgICAgICAgICAgICAgICANCiAgICAgICAgICAgICAgICAgICAgICAg ICAgICAgICAgICAgICAgICAgICAgICAgICAgICAgIC AgICAgICAgICAgICAgICAgICAgICAgICAgICAgICAgICAgICAgICAgICAgICANCiAgICAgICAgICAgIC AgICAgICAgICAgICAgICAgICAgICAgICAgICAgICAgICAgICAgICAgICAgICAgICAgICAgICAgICAgIC AgICAgICAgICAgICAgICAgICAgICAgICAgICANCiAg ICAgICAgICAgICAgICAgICAgICAgICAgICAgICAgICAgICAgICAgICAgICAgICAgICAgICAgICAgICAg ICAgICAgICAgICAgICAgICAgICAgICAgICAgICAgICAgICAgICANCjw/hYUwW1kkhPDwdeD0W9pdBt9A Oh1YAX1ml8GsTVLkEByetbJbMgnWNvGyHZJgEvkFOe w6UZpjVT1CqHJmJ5LjK3PuWFbgJN5VPADtHJFebCDjDNTpAYMwLdR1VCFiBOkzQA6ZsVJkUAwbJVNjNO MeAmAfOSKvHPLsHZJbMHPtHOXKGAGmXKNaFdOtLXEoYOBtNFvnVQVUENO8IIQxTgNjYELuEOLeGE0CHG HsI864lkXfGN3JBo9IDpQvLK0nuc9XLPezNLIpAscW Anp6JTroNR5EjRFmqAK1DGObWKYLJmJcY7nue6KlPKziZMNJBRmgYN7Co8UbaQJsJPl+Wd1LFX2gt1Ax GYz6JCEgYR0tsg9OKAwXGzKhQ7RwiYexKPAjqcL5mMQfYAN5BHbprySKm4ghsP3qekohWZQlDXGhCLKu BPQbYgLhYOSuGCryDgYKADsPRuBoQ9Qho5HjSrO2FK WjLnPwLMtkKKTpLtZ1QF95lMkzRW6IOAOfOVHwCP32PJF7NHZqGy6ERq2XGuYnJF0emx6SCQeyNPKiZk nAIrz9MHmzZT3RePFwX7KmzMFvv9zSRnZcQ1NYENW7NNXpXo1UZBGbLmTwPHBvNYfqRF2aXNRnVKABeE jnoyX8CI0DSH4lqfApLF6KVoGcXt3aYr2REtLmS6Bx H5NsATUcQNHFBIzkZQ7UFFmbZA7gMQ2Qp8NBeHEhyI3nzh4AJWCgZBJmMrnpdq7TCiloF5E5tEpgGTVq LCnmNOLOHQttRT2CBZVuKJS1LYH7McMpNMNFDfFqR49uLP8DA0Phm28xDnQ9FIVcOnFfAQcsOG08rClt lxWhiYRmjUhaED6JZt1+DQplbmRvYmoNCnhyZWYNCj RnLEEKXfLzCCCmXFFhBCPdDoE5RxTeKa9EUWCtDRNxQVHfBlVdFVBvXOOxZFwiFHZkYRN2WsO9FDAqOM HtBJ3FMiOqTHRlWSn3MtXoNZBxQGNgbg6FMLFdZYGjORF3IqJqQVNkMGBlDGffMTGaVDIsTxk8ARYrLQ YwOP0RPbVgTIKhZOS7WTUlPHUeJTWuwd5XEVOqVALy KKOtGsOsXMFyXQBgIJjvPFHmKPV8FkLvYLIoXIAfDI2JWrRgPSNjMHt9GBRpWEXmEABjzd8OLRRuBRId WCjvQQFiCGPzBRBoZDddPRGeEMUqXKG2SHMpVXQnNF2UIhPvWTAbYIIeVcQuPVXtTHQicc2TTVHhAHJa HISaYVBbTYYtTDDjKTraBISqJNI2QvZ4IQBrYJLgEO 0IYzQzKQOcZKi5QmHaGHAoVNAlie5JFQSpMMXrPsokZSNeGLXzBGSqLPhsBUVtBYSpYoH9CTWiCVWaWV 6SNxNfPYKuBvX1QvAkVYErAKPdwl4ZOQTbDLUkOaxwPlVqHREcPCNhGUruERGeYEAcICY3JMUgCRPzFY 1ASrVlROJcNdIlKxWwYGSoMSWszn9LVDPuIKAsYHJw ZICnXKCdUYVnNWyuAHJpSYE5JRk2LISuLDWqJX6PMnQaIDUoMzIgWOJhPRNqZWDdhn7IELAlWBHcHtZ0 CPGrEQWnNVZsJBkkGTWhTHY3COK3MMYpPOZjOH7UHzHrPVIgOjb7QlNbLIMbXBTzkb5TVBSzIGXvEhgk IOZoGVZwPHDcYBstTAEkBTT1PEb6QVEfPHVjVA1AEf GdSPIqMsczGCQsYAMgPKJvvd8XNZFmAAKnCRV6GNKbGRNsZZOlADlwJTSbIOKwXiSiPKPvDIAyKM6YSl LsFAMoGrJ5JsCkWUAqJWYzsh2KFRQvVBHeLUUiQWSlJJXnTSNtNYgpCAZnYZLiXFs4EZZzKXFgXX0KXi HxSOAoXgD5UwcvNCWhBFMfsm7YNBNhVCTkVGc3SnVc XUOaMEQtICknRSSuYHS0MFY3BKLbPDWnLF7RLuPoTSRcFUMiRLGsTVTmMTXtyt5MZLIgCTT5LZU4SBQy BUHsQHVhKZwmKYLeNFG3LiVeTPDlKUXrEV1NPbRnSNAjZQE1SRNdYLDhEFDssm9MFBGsEMJ1YqR2GuMj BAQbVUQwJEinNBCzTGT8RRM1XVFkTUDmOA8KNaBnWO GoDCq1FuNqXBYbKUQyfi8GLWNsFJX0HFC9WBSwNYOqQTGySWbfUEUzUWV1LnngXVRyBUHbUG9LKhEmLJ YlALv1GWLhGTZxLNGggf7KZHNbDPU2RGt9VONgVIXlLCUkZCx3tlGbmGQhNBn1QR8EK0PxsyKlJZAOYv 2Yb414UZE5LNKzZn9VK8ulFy4vXPSvROBEHz9ZHNm6 FuIbI1S4PWk7BJKvZZGcBNYnXGRxRBfcY7I5TQHjQZp+QJdxA4F3LAd9XlUtP3L4XSUwPmUuLLQoO3Zn WJw4QUK7Ir7cGNEODv1+GNrdxNJqhKlpYOFTZcFdDJZ3ROcuOKTJDt7F ID Date Data Source [id number] 08/02/2020 01:01:00 [place] [address] PHONE: [phone] FAX: [phone] Name .................. : BASILIO Torres Acct Number.................. : [id number] ROOM. ................. : TR-1B MR Number ................... : [id number] Stay type ............. : E/R Discharge Date......... ... : Admit Date ......... : 07/30/20 Admit Phys .................... : MICHELLE SIMMONS Date of ....... : 1980 Family Phys ................... : [email or web address] Phone .................. : [phone] Age ................................ : 40 Film# .................. .:[id number] Sex ................................. : F Unsigned transcriptions are preliminary reports and do not represent a medical or legal document CT ABD & PELVIS W/ IV ONLY [id number] COMPLETE:07/30/20 16:49 [facility] [id number] Reason(s): Abdominal Pain CT OF THE ABDOMEN [...] air or ascites. Page 1 of 2 [facility] [address] [place] [address] PHONE: [phone] FAX: [phone] Name .................. : BASILIO Torres Acct Number.................. : [id number] ROOM. ................. : TR-1B MR Number ................... : [id number] Stay type ............. : E/R Discharge Date ......... ... : Admit Date ......... : 07/30/20 Admit Phys .................... : MICHELLE SIMMONS Date of ....... : 1980 Family Phys ................... : MITA ROCHE Phone .................. : [phone] Age ................................ : 40 Film# .................. .:[id number] Sex ................................. : F Unsigned transcriptions are preliminary reports and do not represent a medical or legal document CT ABD & PELVIS W/ IV ONLY [id number] COMPLETE:07/30/20 16:49 [facility] [id number] Reason(s): Abdominal Pain Lung snell: No adenopathy. [...] By Migue Campbell MD , 08/02/20 13:01, APYina Transcribe Initials: DZ , Transcribe Date: 07/30/20 17:38, Dictation Date: Copy for: DAREK LUCAS via fax Copy for: EMERGENCY DEPT via modem Copy for: 710 MED REC DISCHARGED Page 2 of 2 Name Value Range Interpretation Code Description Data [facility] rce(s) Supporting Document(s) ID Date Data Source [id number] 08/02/2020 11:01:00 AM EDT [facility] Name Value Range Interpretation Code Description Data [facility] rce(s) Supporting Document(s) Glucose, Fingerstick 130 mg/dl 70-110 Above high normal [facility] The above 1 analytes were performed by [facility] [id number] [place] [address],[facility] [id number],[place] [address] ID Date Data Source [id number] 08/05/2020 11:15:00 AM EDT [facility] Name Value Range Interpretation Code Description Data [facility] rce(s) Supporting Document(s) Total Protein 5.8 g/dL 6.3 - 7.9 Below low normal [facility] Albumin 3.1 g/dL 3.4-4.7 Below low normal [facility] Alpha-1 Globulin 0.3 g/dL 0.1-0.3 Normal (applies to non-numeric results) [facility] Alpha-2 Globulin 0.8 g/dL 0.6-1.0 Normal (applies to non-numeric results) [facility] Beta-Globulin 1.0 g/dL 0.7-1.2 Normal (applies to non-numeric re sults) [facility] Gamma-Globulin 0.6 g/dL 0.6-1.6 Normal (applies to non-numeric r esults) [facility] A/G Ratio 1.14 [facility] Impression No apparent monoclonal protein on serum electrophoresis. [facility] Test Performed by:[facility] [address]Avd Director: Julio Gracia M.D. Ph.D.; CLIA# [id number] above 8 analytes were performed by [facility] ([id number]) ID Date Data Source [id number] 08/04/2020 11:07:00 PM EDT [facility] Name Value Range Interpretation Code Description Data [facility] rce(s) Supporting Document(s) Tissue Transglutamin. Ab, IgA, S <1.2 U/mL <4.0 (Negative) Normal (applies to non-numeric results) [facility] Test Performed by:[facility] [address] [address]Jaa Director: Julio Gracia M.D. Ph.D.; CLIA# [id number] above 1 analytes were performed by [facility] ([id number]) ID Date Data Source [id number] 08/04/2020 11:06:00 PM EDT [facility] Name Value Range Interpretation Code Description Data [facility] rce(s) Supporting Document(s) Celiac Disease Interpretation See Ref Lab Comment [facility] Negative serology. Celiac disease unlike ly. However,approximately 10% of patients with celiac disease areseronegative. Also, patients who are already adhering to agluten-free diet may be seronegative. If celiac disease ishighly clinically suspected, consider HLA-DQ typing.Test Performed by:[email or web address] [address] [address]Exc Director: Julio Gracia M.D. Ph.D.; CLIA# [id number] IgA Immunoglobulin 136 mg/dL 61 - 356 Normal (applies to non-numer ic results) [facility] The above 2 analytes were performed by [facility] ([id number]) ID Date Data Source [id number] 08/02/2020 04:33:00 PM EDT [facility] Name Value Range Interpretation Code Description Data [facility] rce(s) Supporting Document(s) Haptoglobin 115.0 mg/dl 30.0-200.0 Normal (applies to non-numeric res ults) [facility] The above 1 analytes were performed by [facility] [id number] [facility], ,[place] [id number] ID Date Data Source [id number] 08/02/2020 11:38:00 AM EDT [facility] Name Value Range Interpretation Code Description Data [facility] rce(s) Supporting Document(s) Vitamin B12 324 pg/ml 211-911 Normal (applies to non-numeric resu lts) [facility] Folate 8.84 ng/ml 5.39-9999.00 Normal (applies to non-numeric res ults) [facility] -----Interpretive Information-----Folate Deficiency: 0.35-3.37 ng/mL.Intermediate: 3.35-5.38 ng/mLNormal: >5.38 ng/mLPatients routinely receiving high-dose biotin therapy may show falselyelevated results. Additional information may be required for diagonsis.The above 2 analytes were performed by [facility] [id number], ,[place] [address] ID Date Data Source [id number] 08/02/2020 11:32:00 AM EDT [facility] Name Value Range Interpretation Code Description Data [facility] rce(s) Supporting Document(s) Ferritin 22.9 ng/ml 3.0-388.0 Normal (applies to non-numeric resul ts) [facility] The above 1 analytes were performed by [facility] [id number], ,[place] [address] ID Date Data Source [id number] 08/02/2020 11:32:00 AM EDT [facility] Name Value Range Interpretation Code Description Data [facility] rce(s) Supporting Document(s) Total Iron-Binding Capacity 382 ug/dl 250-450 Norm al (applies to non-numeric results) [facility] The above 1 analytes were performed by [facility] [id number], ,[place] [address] ID Date Data Source [id number] 08/02/2020 10:48:00 AM EDT [facility] Name Value Range Interpretation Code Description Data [facility] rce(s) Supporting Document(s) Reticulocyte % 1.35 % 0.50-1.70 Normal (applies to non-numeric r esults) [facility] ATTENTION: Effective 01/15/2018The refer ence range for Reticulocyte % has been updated:Previous Reference Range: All: 0.5-2.5 %New Reference Range:Females: 0.50-1.70 %Males: 0.51-1.81 %The above 1 analytes were performed by [facility] [id number], ,[place] [address] ID Date Data Source [id number] 08/02/2020 10:23:27 AM EDT [facility] Name Value Range Interpretation Code Description Data Sumaya rce(s) Supporting Document(s) Progress Notes [facility] DIADUy4lSeOHXqVe53/RZRdeNLHxj5SmGBpcXAq6BGmwBEHtI2SdFZB0oV1hNJS6VFkIYfCkCiEwLRNo [facility] [file] ICAgICAgICAgICAgICAgICAgICAgICAgICAgICAgIC PgGFOtXARgLYJyTUSsQPQjMGRvEWJjXAGfGRBkYCKpNAOvHZNgFTCoVD1DZJLzTPIzLQAoSHDlYPXlBE AgICAgICAgICAgICAgICAgICAgICAgICAgICAgICAgICAgICAgICAgICAgICAgICAgICAgICAgICAgIC DzSLGaNFKcMCNvMYQqQJDeTIMrAALiPI7ZANFuCOYc ICAgICAgICAgICAgICAgICAgICAgICAgICAgICAgICAgICAgICAgICAgICAgICAgICAgICAgICAgICAg OQVeWCUnUSHzQYQoRJHbYBXbQQSyNJQfVUUnKVRhVWVtQL4SAQVjRAUeEFZeWABcXITvVIRpLBMyFKJl ICAgICAgICAgICAgICAgICAgICAgICAgICAgICAgIC RpUDQoXQWlIDZzVPWxIPUpEPUrCXVlEPGlOIKjWUTwVPEvCDKzDCSiBBRoSH0VJFZbXTMgMKElFGAnDZ AgICAgICAgICAgICAgICAgICAgICAgICAgICAgICAgICAgICAgICAgICAgICAgICAgICAgICAgICAgIC EiGANsUAWmNZBjZQLdJFRwBRGzYBUdIKBmWJ9TQOFt ICAgICAgICAgICAgICAgICAgICAgICAgICAgICAgICAgICAgICAgICAgICAgICAgICAgICAgICAgICAg XQOfMFAuPAKcQLGuEPGaMNWgEUUbAPXdMORfVCNaILKkQQKuNX4DREPkWUWoDKHvVFXxYTLzQHHzNXBs ICAgICAgICAgICAgICAgICAgICAgICAgICAgICAgIC DeWPWqLCUsPNDrKTVvBJLzEADvFJMsWJAmTWNpLXThOARtFSKiWNLoMYWwFYYxHQ9UJRSnQASvZAMaET AgICAgICAgICAgICAgICAgICAgICAgICAgICAgICAgICAgICAgICAgICAgICAgICAgICAgICAgICAgIC NcAJUjRPGpKVMfNRJnZBYhAIDhWWZtJFQxFKVbQR8J ICAgICAgICAgICAgICAgICAgICAgICAgICAgICAgICAgICAgICAgICAgICAgICAgICAgICAgICAgICAg PWLzYBPaIYMqENIiVUQzNCNfBXKjHVXjQTByOFMaCJUzLUTfSRDzII8YLSQtNYWiKODkJZWqDFLfENNa ICAgICAgICAgICAgICAgICAgICAgICAgICAgICAgIC LoQHIeSPToSRAiEVYsHUNmCCYxDFRyCXLrEJCzIIAtFDEaUNLqSLKaVTXgUZJeMJXgEX0LJE25yVDah1 I5COMwTJ5inkn/Nl1BJVhppgMipNHjSQ6DDhDoGY1uve7NXvXpJN1wds9CAIjUWdCqL1M7gXRvLHCyEX OYXuOdZ37cCXhtRm18DNzsPFCmOwUdJEv4Hw0GFvPs B2lfNYUzVrL3FCWfWdDtMYsaTP6Rs1JurJUcFEc+Ch1XTH6qx9UqMTptWUOqMJ0pci8SKDuIAzCeL2Dp vwI5WGC7EGZyPs0RDSIjQMBcxENjKyHdMCOLAiYbT5OzxD02DHFCFa4+OKgysqKcNgnNPbE9FQRjr9Dl AIx5XZ7FVECnLGp2dDZoBMVvZ7Lxy8XiGd93ZHWkNc juJVCqaSORHWEwqoDzgLRfBY7yXk9lUZQjDCUvObYiEHYLIH9AGGFiDKWioTXwMKAsPRRQDQ0ZBYjxLA E7VlsfmsDppVVeVHtpXH4NJOGsbiGfIjTcAPIXECf+Zd3CIZ9dg6DfNUpbAxJzYH2crn4UGJzBZmJpZ0 T9cTVeL2G9PBjaRx2TQXCcKXBsTgQoBMIFQRxqNW1R VE9sspJ3UP3ZpVQzVGKvJGTzjNBwNNd3O18gaYNcZOmjWZ2ZYQD+Savannah+Pt5VMUQzZYInDHCrQoYtMGCV RyDgC6CaN0TKp0NcY2CbNZ55qVbtysRfWYxfJC9IAO6cRLHtKLSJKG7CjECtnD6wcwJaTGOxPALBYdFk R58maQFdPIWpYEU1HGGvGk7OJKZfF2JudqYcuRqfoc UpFIXgPKJRIV8DFCyojbFyfQPvhWlsPJ65iVrrUB3XGm0JWqPuLJ1rxy6JjVCvPb0JNYQmBT5BESSaKP MdZHRuQVP3SEQmYrEvBWanBDYjKDJoKXV9VSMjNBVnPB9GYiDnNLOqJqN3ZWJdOYAnVSTgeg1RHJYyIL MqEvP1RIOkHURvDETrPVsoICUxRLPyOZC8BFIhOCEf LP1RRrWiOCOlGCN7CqRbGGVhQXHzll7XHSAuAIQiLiJkVUHwRJNsKYKdQQlmWFWlZELzCXn4GMPmVOAr YY6RUwRjPQLmMAWbNUafBTQyZQArwy2FVNVaHAReTdR8DmQiKOCaKHZfPBlxHPGxQMI9JpOgWJUrDPUl SC7RKgJsMVJwXIV8KkhyOKEiJJAqju0KLBYaAPMiMM umBYXgYNJeGKStQLatVTPkIZP5WPxsORNwZJRzJS8AFhNyIYZxVAhfKQPyNBGiYSQlpq4YIIFiWACiQa B2YBNkNAArYSWvHWuxNHMcKCY6CIZ1OHOrCBTnAG4WUcNtKIRdBLh6AXQuAFJrKVEvag3OFAKlPYOaMS kjQYVqKLFnDLEvDAtkUECoOXN4CVF8TMClPXBtUR9N LjWmBYAyDSmkXUMuDGCxADKjfo8FVCBuUASgQPYmWIZaDAFmYMMxRSjoIXJyRDVwMTSnPIFcLGFoAA5Q HxOyDPGhUdK9OVUeNSFuUSGdij5QUWOdQEZdBDIoPLYdQUFsCASuPTjhTHQoFOCyNJYbPOFqXHBlPH5H BtHfQZSsCwX4WoBsDVGwWXGewl7FBHApADDxMrF9Pb XgTAInNHKtKXc3xsSptHZyUUm3AB5TY3VzjiGmThbXTo9Kk834JAE9WXOxSc9UB7rpUm7dTIMnKDHPIr 0NVSj0NELmEGUuCRC8ZSY6NmFdU1CuYouxRSo2V7KdKmTjPiZ+FKn9ZQM9I2MgJmhqSIDkVSA7EPU6YQ M9MjptCLOiOHUwQy4pKYEKVg4+NQuwbWSwjPrwWVUKIiOvMMVmMXmgLZYFVo8C ID Date Data Source [id number] 08/02/2020 09:50:00 AM EDT [facility] Name Value Range Interpretation Code Description Data Sumaya rce(s) Supporting Document(s) Glucose, Fingerstick 100 mg/dl 70-110 Normal (applies to non-num zeb results) [facility] The above 1 analytes were performed by [facility] [id number] [place] [address]#: [id number],[place] [address] ID Date Data Source [id number] 08/02/2020 09:12:57 AM EDT [facility] Name Value Range Interpretation Code Description Data Sumaya rce(s) Supporting Document(s) Progress Notes [facility] HVXCDp4vJsDQOjRn64/FARdoNJRpm2QfFWhpCRh7FQkdQOOkO5RsNUE9lH1oRUO5QPfEIpXwRrGkWJEi [facility] [file] AgICAgICAgICAgICAgICAgICAgICAgICAgICAgICAg UFFaSKJwIHGsLIOrHAWsDRTmNNVmHB3UDCViJMSsSNFyVSFoVOJhHRJnVGFpXQUhXCMvAPRyIOZtOKEw ICAgICAgICAgICAgICAgICAgICAgICAgICAgICAgICAgICAgICAgICAgICAgICAgICAgICAgICAgICAg TIHtCM2XAMOaJSCqFVLnJVUzEYLcRFZpITLuATSdGU AgICAgICAgICAgICAgICAgICAgICAgICAgICAgICAgICAgICAgICAgICAgICAgICAgICAgICAgICAgIC PwCZQvUSAnRROxOMCaTS2KQCNbOYKvWBMzMLZrDDFdLBVhXGVeYPXrPFSeZBCdHKIfVREuGIQdAELwIP AgICAgICAgICAgICAgICAgICAgICAgICAgICAgICAg HKJvOLCvXLHzHEIlDGUqDDJpTTClLRKyVB1JOATqTKPeLWIvJJIpAPLaVXYkTZGrQOHvUOLaPCDbEYJj ICAgICAgICAgICAgICAgICAgICAgICAgICAgICAgICAgICAgICAgICAgICAgICAgICAgICAgICAgICAg UGEaVNGkTH4FOPHfQKCaRWNhLRQxLHTnOVTvKDVpEV AgICAgICAgICAgICAgICAgICAgICAgICAgICAgICAgICAgICAgICAgICAgICAgICAgICAgICAgICAgIC LmNBCjSZWwWCWjXVQxVDRnQV5PFTUzIMGcFNMkNTMlJJPkWEMdUFBpJYEzRKJpBYBeIRYkRNRkBJQeAX AgICAgICAgICAgICAgICAgICAgICAgICAgICAgICAg YWAsRJTdWNNrGSQvVMHyFIFyYFDyBSQsGOJxSY7SMYCpHUCsHNMjMZJmKHIrGYDlQOEpARJlBPZqFJXi ICAgICAgICAgICAgICAgICAgICAgICAgICAgICAgICAgICAgICAgICAgICAgICAgICAgICAgICAgICAg OCSoPRStOZTbMW4XSRMhGELwTYGhFTRuERFwBRIrJG AgICAgICAgICAgICAgICAgICAgICAgICAgICAgICAgICAgICAgICAgICAgICAgICAgICAgICAgICAgIC JaELNtXQVbWQGpCLEcNGJuEMRbUL9AFTWkCYHwWUFoLHGgCHXrVVHiGKYtWYVpZSQyAVItELEpVSHoDG AgICAgICAgICAgICAgICAgICAgICAgICAgICAgICAg HBUrXOTpEGNgXZRePXWlTYBbMIMvMGWcPRArFSRoPG8QTM60mFCav7Y4RTQfCF9tkmx/Hh2IDByslmWo nYJgUG9CBbLjZQ9isx1GQgFvOS3dem1CWBsLKzWiS7C1qJGlIAAtIDBQGeNsM72lDMzfQc78VXldTHLx NtFfOJf8Kf2ZUnHiW1iuYJNnYoB4ALSbEtIiLAgaIX 7Tw5EnuPUuFOd+No7OFN8cr3JuUJkdYEJhBP4vxd5MMWgKFcBcX7PlqeQ9UBGjIYInVz4MPLGvNDOutY HwCZSeBOPAPxAaC5GxoP92MLDOIl2+OOcwooNgJzuJOlWrGKMmj0TvHKs9ZZ8UTIHdTAl8oQApMJKpW8 Clr7UiCg19PEBaUcpcJFO6XYcoqRKmfvEmTLWQLROc fTPgAF2aIu7pYOPyYIN8SkDwFZKXHZ4VOWTiFHLkfVFgNKItDHFMBY4IOPaiMHS3LslxuiHunOAsWXys XN2ZKDLfkmQhNgLnCXUDHCe+Lv6FAD7qg7WnDLebKiGzTP4bce0IWMiDOoNoJ5N9fIUrP9V1KYaySy5N YJHyJXHxLSamEVWUFYcpHJ0AUE2bvdF0XJ8PwZCkIY EyPYPwlNZgMVp0U05yrRAbCMkpTK7QDNQ+Savannah+Wi5TPDOdHAOsEQDoSgJwPUAAZoDpT5VpU2PLs6GsB4 RcXB39dPxqbsIyRKezBB0ZPN3bUWFgVMMFPV9IxWBvrO7pdiLlZPKkYWOVTlHqS81meKMkHKAsCIS7EK LjHj7UJRFfV1HbceZiyQvthbLvPUPmOZFVJX7YUAki uwTalWExgZviKV45mAbgRE6XJd9DLiNdJO5jlx7PsVCnOy6EGBWjOw0MWNFzRKChXIJhAXC3OQTpXrPq LQiuJJUvFODjLLS4GUWwSMDrTI6WFkGaWPYiYII7VYWnSXCwCVFwwz9OWEFmWIEwWME7HOKqUAUgAIRo MZqiWYYuOTIwTIO1NPRrYEBdFE9THjGhXODcNMOkCP UgMAHbVPEkwv5UMEGkIPMbVWPlCJWrQFJcYCAgLVvpSDYsQQQfXnQ4NQEwANUiTN0JYjCuWSOrYQM6Lr jjSMInSJZuyo3TMVAgXLFkTrs9PcGeBKMlVKNpQZheGWOrJYNmYlJwQRYtYIGjNJ9QBfBhGYEtJVV1DX efENCoVXDwyr2ZRKWmUACcLKP7PBShGKFoYDZjQPok WRGqRCC3FKU8LGAwKWLqEP1CNpSwYEPoXXOiWEGwCGEqPGWxfx0ZGMKxBIKhFAAsNMXaTPLbUJKsTZhn RDZhVXT3UsilTMBfWIVtOP4IBxWpBAIlSYQ9VDMoTXMaYHUjoz5OMUFbNIPmAlp9FVFpYEHdVHFoEZpf GLFoTGH6PnX5EBNvSWJkXP1XRlEzMKWzLAa4ZIabJC YrWZMjqs0HFXMdRFMaOYvxJZViETYcARHpLBnwTXLuLFX7QLn7KZPkKYSkSI5NQrXyDBwkQWEKNea5FI lgO4c2FQWeBf1OS1Wgs1JxPwVkCORYLIgnGE4jhkDzQQWkQw6WV6gQKff5XUV4HkixGFF7YlP0GJN6FY PtLIU7XbmiCFIeGXKlPp4nTYU8CNneJCL0CaW0SKTn HOCvDvAiUEtvYnR4VzQcEjB9LqRoSO5NJl9JYvB1ITU7kOYcJo9IDQMbBY5LHRCHR1LJRw== ID Date Data Source [id number] 08/02/2020 09:11:[address] [facility] Name Value Range Interpretation Code Description Data Sumaya rce(s) Supporting Document(s) [facility] PCLNFg2mAxNWUhJn60/TVLcoBMUmb3LbRBvhYIz2MZcyTTLlU9HyBTD6wF6nJUO0CPeGHhTnAiTpDASw lbm [file] ICAgICAgICAgICAgICAgICAgICAgICAgICAgICAgIC AgICAgICAgICAgICAgICAgICAgICAgICAgICAgICANCiAgICAgICAgICAgICAgICAgICAgICAgICAgIC AgICAgICAgICAgICAgICAgICAgICAgICAgICAgICAgICAgICAgICAgICAgICAgICAgICAgICAgICAgIC AgICAgICAgICAgICANCiAgICAgICAgICAgICAgICAg ICAgICAgICAgICAgICAgICAgICAgICAgICAgICAgICAgICAgICAgICAgICAgICAgICAgICAgICAgICAg ICAgICAgICAgICAgICAgICAgICAgICANCiAgICAgICAgICAgICAgICAgICAgICAgICAgICAgICAgICAg ICAgICAgICAgICAgICAgICAgICAgICAgICAgICAgIC AgICAgICAgICAgICAgICAgICAgICAgICAgICAgICAgICANCiAgICAgICAgICAgICAgICAgICAgICAgIC AgICAgICAgICAgICAgICAgICAgICAgICAgICAgICAgICAgICAgICAgICAgICAgICAgICAgICAgICAgIC AgICAgICAgICAgICAgICANCiAgICAgICAgICAgICAg ICAgICAgICAgICAgICAgICAgICAgICAgICAgICAgICAgICAgICAgICAgICAgICAgICAgICAgICAgICAg ICAgICAgICAgICAgICAgICAgICAgICAgICANCiAgICAgICAgICAgICAgICAgICAgICAgICAgICAgICAg ICAgICAgICAgICAgICAgICAgICAgICAgICAgICAgIC AgICAgICAgICAgICAgICAgICAgICAgICAgICAgICAgICAgICANCiAgICAgICAgICAgICAgICAgICAgIC AgICAgICAgICAgICAgICAgICAgICAgICAgICAgICAgICAgICAgICAgICAgICAgICAgICAgICAgICAgIC AgICAgICAgICAgICAgICAgICANCiAgICAgICAgICAg ICAgICAgICAgICAgICAgICAgICAgICAgICAgICAgICAgICAgICAgICAgICAgICAgICAgICAgICAgICAg ICAgICAgICAgICAgICAgICAgICAgICAgICAgICANCiAgICAgICAgICAgICAgICAgICAgICAgICAgICAg ICAgICAgICAgICAgICAgICAgICAgICAgICAgICAgIC AgICAgICAgICAgICAgICAgICAgICAgICAgICAgICAgICAgICAgICANCjw/cLSxI4ylhPSbmkD2Y4mxLu 0YQk8TNV4hm8IdWDCrWPrtzqIpDygAHoZxUOVcEtvCZxx1ZPklFV9RkOAyD7ZcI0CmAPlnVC3ECBGeUG ZhoBZgGJMnRUQaUjK4OJXmABivGN0LsOVjXIlqPZXi EEJuShLpBMIvPU9XDPRkQ053paBmYe5XYz0BHeLqNY8nuq7BNeXoFOZlGqyMZze0WKmvXM1EuHOnuMDr CxGtDMBZJaUhK9tyh7MfLzWhAQWJYWylPJ6Vq8DhfOLaNAk+Su7FMG8he7TsVFveSpItRB0xhn6OJQqQ QsTaM9YvsZixUSAku3SbTGFhVCAcQsnyQBD4NKqrwM QxscVdBYWSERCwrHPnUF2bVe4uOWPzPHY1WbL0QMIASA1SCZJaRDJzvVVzNWTbAYORKC5BYFafYQI7Ba zsduQxwGBnMQoyGI3EOIIycqKfYeEuXHRJIGi+Sl4FZI2yk8OqUSayYhMlVS7fri8UTEpHNvWcP2X5wX XqN8R0TJeqYe7AQUMnNSPyFvMqZWUQEIldVQ3YEW1e rqW0BK5OtBHyUQZxYIPoaXCzUJy7E71nyZIaJLjiFV9PDHH+Savannah+Ty8YDOPpCUBrISBgGmUnXNRQBwSy X4AsJ8VDl8JtE4MbTQ98lHphbdXuHJzeRA2UGO3pNBCeHECCRN8NyVXfjQ5vszSvHZAiXIEJLgNvK59h lDIrQUBqYIR1DSCgHp1MHDDeS2DrlfHhhWsvomDuKM XcSFWVWV7ONHxxmdPyjYShnIroPX31yNkpBC0XXp1UObEsVZ6pjl3RbQFwSp4MZWZzAX2QRJPzLCVoHC JwUSZ3FUFkUcTeZCgeECLzYGLnNOX3EDUfZOJzHP6RQsCjCBVsKDDbZPZwNWNjKPNsop6UQUOaVMLqDk i4LLXkNCSgVKSsIRkgKOZcPSJbEMH7STSsTHMwUF2B MtMrPBXpGUO9VfPzVSWsVWUiax4YOYPrSIGtGvBvSAFrJNCbGWEwEYlmMTEsWUB7FlK3DUUeIXPhYP8C NaQhBIHlYXQ4MtTuUANoTEOmoe3WSYPcXAZzRAC6FMHnEACnYUUmTDfnEUWaNPE4MKpnYELiIAAtDJ4I XtJnXIOaDMP1ErbuAEYgYSQsyn2ECTXrZWHsCzvpXB SuFTNoUFIoDTarMIKcTYZ9DFE7KVJdFWWvBA7DZxErLMGeIPkoIGzvVIJzVVOrjh7LFBNyYYGqBFJ4Wv AeCXKeQUXzPReuJXPsETQ4Idb9KIYxIFVhXW0YUlNvISEsDKv2IpWqPDJsYYJktw2DXHFyCVQtVXUePh IhERLeGNSbBIlxOQXzIBS6InXwDGAsKJAuTR1SAhEw JQHhTNm9LPioKBJlWVYavo5EFLHeKNBxSKt1CxDnBSBmWQAlTQugBIPdIABeQVf7FQBqCRIaYP2DIgXw XVLkJJEoQhSfOFPxMVBjfo4QNYUqJNWvKSPoBILiZMNtFJRbXSuqMDXuDYHoGNC8OXDzHOXcOU4UOkYw FPRhZMHaBaSpUWXpFDOdic4RHPGtPVIxOrX6BOSsCR YuJXHvRGu8yaEnnRVmTWy9RW9JA3LehlAxBfdHCw0Mr451HQX5COIyYi4LP3qjDj9fYADgMXXCVm0MZA w3MmC6BGm9OSLvBrFqODeuBmIkQVZrUbctODU6FnY5QWF+EHirHxD8JretYRJ7PPOrQLVqYlD1VzA2J2 K3YSZ1MkY2PE6hBHKVNk9+IWrybNBzrZxvWVEDYlWwFNA1TNlzKEBIPb3U ID Date Data Source [id number] 08/02/2020 09:10:41 AM EDT [facility] Name Value Range Interpretation Code Description Data Sumaya rce(s) Supporting Document(s) Perioperative Nursing Note [facility] VATPMi5dOmPAOqRq27/TJXlaZOTin0AoPQvxHCj2CEjaSQUzP8GoPVR3uP9bCJQ3DEjWWsKtDzIqTZTh lbm [file] zoJCUxZcG3UGCgPVwzBwN+KD7jQKv+Mi4Qb8IylbQ1dfCcSZcgVSh1Aw8SSKEWR8TRRj== ID Date Data Source [id number] 08/02/2020 09:05:[address] [facility] Name Value Range Interpretation Code Description Data Sumaya rce(s) Supporting Document(s) Procedures [facility] System GAEDIt2pUmNMHeKo58/WDIgqPJAiq2CeCPwxFHl2DVutCQIuB6LeDCW5iD6yMJV3DIdEBvCaViBbBZTo lbm [file] AgICAgICAgICAgICAgICAgICAgICAgICAgICAgICAgICAgICAgICAgICAgICAgICAgICAgICAgICAgIC AgICAgICAgICANCiAgICAgICAgICAgICAgICAgICAg ICAgICAgICAgICAgICAgICAgICAgICAgICAgICAgICAgICAgICAgICAgICAgICAgICAgICAgICAgICAg ICAgICAgICAgICAgICAgICAgICANCiAgICAgICAgICAgICAgICAgICAgICAgICAgICAgICAgICAgICAg ICAgICAgICAgICAgICAgICAgICAgICAgICAgICAgIC AgICAgICAgICAgICAgICAgICAgICAgICAgICAgICANCiAgICAgICAgICAgICAgICAgICAgICAgICAgIC AgICAgICAgICAgICAgICAgICAgICAgICAgICAgICAgICAgICAgICAgICAgICAgICAgICAgICAgICAgIC AgICAgICAgICAgICANCiAgICAgICAgICAgICAgICAg ICAgICAgICAgICAgICAgICAgICAgICAgICAgICAgICAgICAgICAgICAgICAgICAgICAgICAgICAgICAg ICAgICAgICAgICAgICAgICAgICAgICANCiAgICAgICAgICAgICAgICAgICAgICAgICAgICAgICAgICAg ICAgICAgICAgICAgICAgICAgICAgICAgICAgICAgIC AgICAgICAgICAgICAgICAgICAgICAgICAgICAgICAgICANCiAgICAgICAgICAgICAgICAgICAgICAgIC AgICAgICAgICAgICAgICAgICAgICAgICAgICAgICAgICAgICAgICAgICAgICAgICAgICAgICAgICAgIC AgICAgICAgICAgICAgICANCiAgICAgICAgICAgICAg ICAgICAgICAgICAgICAgICAgICAgICAgICAgICAgICAgICAgICAgICAgICAgICAgICAgICAgICAgICAg ICAgICAgICAgICAgICAgICAgICAgICAgICANCiAgICAgICAgICAgICAgICAgICAgICAgICAgICAgICAg ICAgICAgICAgICAgICAgICAgICAgICAgICAgICAgIC AgICAgICAgICAgICAgICAgICAgICAgICAgICAgICAgICAgICANCiAgICAgICAgICAgICAgICAgICAgIC AgICAgICAgICAgICAgICAgICAgICAgICAgICAgICAgICAgICAgICAgICAgICAgICAgICAgICAgICAgIC AgICAgICAgICAgICAgICAgICANCjw/lJInH6hkoPQp ztT4N3teEg0FAu5XCY3cl0KjGXIqMZqgrhPcKumMIcSxHYCiNibAHnl2QClhOG1YiKIyA3QrB8FbQSpi GK9NUNErRYSqjKFmTSDmJAIrTuV5QMSeAVsiNM9VmFZgQRppBTXuOGXnXaHcMYOdWIYvFAAiOR1TQSKm R125ijAnOf3COd1PNlKgNJ7umd7TVlZyUUDrFnjCPj w3KZqrPX4OgLGffHYaVfLwLQXZMmBrI8byc8NqCpmyAFXXMTvsXS7Ei8HguISfTAa+Ul2DIG8lc0ShDV zuVeVhHF7fgx6RUNxOIdNqF3AhqAowXTFyp1DhMSCzDYFmv2vfyfUtHXB9JGhsnlLjfBGPAX4qbGVant BBbGxlbiwgTUQgYXQgMTAvMTMvMjAyMCAgOTowNSBB GNbBPkEvB3Bak6JsKsK4IFUpWqMqISzoLCIhCpA8XF36zHfmVU9QHXYeJNUtRH01JMX4JVIjBu7LPs8M ThHaPK9guk4PSxinUJPkCwvWDsu7OXtfAE0MlKHoT7PbcSCpf8lQDqCwR5QDHLI2IWSqFk8ZADSnGlLb NLWlLRihUK3cYXNsBSRWsLjqucR3GK0VFB1mzmKgEP 7PHeZmNe6pKd1NIzInW8OvQ7DrTRVlSGYCLWqzBJ1SWIwhJB9eOH9Cp8BQuNOjyK0aax5VENOgLFKrWz esaw3DMxgoN1M0tJhgEEUaEuOhIIWLJFvpGY7QQNRySJX6ICDjSOImFCMPIgZuP09rBF1YW0Spq97bAz K2ZIFhTjWrJAetDO01sPxaxmUtzQCuqSziOY7YEl8+ UFqdgqZiNpiDIndqXZHRVuIeMdcTSpNnHEOdJJOvIOFhTdM7ZyBgIt9NMHIbLBCdEITlFpJuZCQtIMMe LGceEAQlJMNnMYNzZVZsEYFtHS2TRcWaYDBtMsK2SnplAINaNRBuvw9MOTAeKVNoWJS6GqQjQIJxAKHv YHbiJPAgFRWlHYm2WLNeXUClOF5NQtQtXKRbICChRK WzHMHpILOwnz1TSISsLXRsJXY1VPPoRDFdKPSkCXlpMJQpLFY3ILL9FAWrZDMmCE2EZgTrRTLoGQC7Mp IsHVEnKQVfpy8CYEAfEHKtTFg0IKNoLSHpLLVqWYamYMHxKFR7MWX1EJNmJWZtDH3RQnJbLRHsIYwwIy dsCIXyOHInvc7MPVRmXVYlTyWfBxNoWFNcPRJyYGds CVFaKGI0AQa0DMZkGBGbVX8HCnSqLMZeGDzeFqDcLGFoLGJahl2DUITrSJErMZD0WfJqFHFwEHDzAZlu NGAkVLVtEQS0LSHsXTWaWL7LGpBjJPMlGwBoRuKeADAuQTUfrg7LLYMuWKNxKQYoJZLfDMAvVLVgLGxc RJWpZKYrEpdjYSVaWQKjER0SVkQyQPAnLsO6HOvkQW IpJCKdqn0ZEENzEEXaKyo3RQCpUVDdSUBwJRjeHEMsJBXaNLP5CBOqKVGmPW5MOoClAOPdDrHbDoCnCK EvXPWgsp6SBOTlBTNzLkHrOwEkDUBwMKKrOPmiOMPuVBV6ZZb9WFUuQNDqMA8RKxDrLEMgEnUqBOhwOF GzMPAkso3DPFNiDFXeAOGhXHJdQFNvOSFaIHd9nxBv uUPhMKn7RO1NW9TzmkSaSlxHAx8At139JPL0XPYqEp6MN7abUf1gEGXtKPDQAx7LPOx2OFMnWHupLDDb TOZzUCPeKiBxGgskGNL6ZPGxTkFwFQX+GLfaTJR4Z1A0DxQtEOU5I5SnUYI0YYAgIlo6MnHtMlV8Xh3o XSANCj4+DCjtxTGppNoyEPXXZgH0NRFlYQotGYABCu8A ID Date Data Source [id number] 08/02/2020 09:03:03 AM EDT [facility] Name Value Range Interpretation Code Description Data Sumaya rce(s) Supporting Document(s) Anesthesia Postprocedure Evaluation [facility] HDUWUz2zMlBPUzVa12/FGMjyQWQhu3ZsZRuyKEu9GUkgTHDtL6HhBST9dL8vNIS0HCoBRtGfRhVyROSt lbm [file] AgICAgICAgICAgICAgICAgICAgICAgICAgICAgICAg ICAgICAgICAgICAgICAgICAgICAgICAgICAgICAgICAgICAgICAgICAgICAgICAgICAgICAgDQogICAg ICAgICAgICAgICAgICAgICAgICAgICAgICAgICAgICAgICAgICAgICAgICAgICAgICAgICAgICAgICAg ICAgICAgICAgICAgICAgICAgICAgICAgICAgICAgIC AgICAgDQogICAgICAgICAgICAgICAgICAgICAgICAgICAgICAgICAgICAgICAgICAgICAgICAgICAgIC AgICAgICAgICAgICAgICAgICAgICAgICAgICAgICAgICAgICAgICAgICAgICAgDQogICAgICAgICAgIC AgICAgICAgICAgICAgICAgICAgICAgICAgICAgICAg ICAgICAgICAgICAgICAgICAgICAgICAgICAgICAgICAgICAgICAgICAgICAgICAgICAgICAgICAgDQog ICAgICAgICAgICAgICAgICAgICAgICAgICAgICAgICAgICAgICAgICAgICAgICAgICAgICAgICAgICAg ICAgICAgICAgICAgICAgICAgICAgICAgICAgICAgIC AgICAgICAgDQogICAgICAgICAgICAgICAgICAgICAgICAgICAgICAgICAgICAgICAgICAgICAgICAgIC AgICAgICAgICAgICAgICAgICAgICAgICAgICAgICAgICAgICAgICAgICAgICAgICAgDQogICAgICAgIC AgICAgICAgICAgICAgICAgICAgICAgICAgICAgICAg ICAgICAgICAgICAgICAgICAgICAgICAgICAgICAgICAgICAgICAgICAgICAgICAgICAgICAgICAgICAg DQogICAgICAgICAgICAgICAgICAgICAgICAgICAgICAgICAgICAgICAgICAgICAgICAgICAgICAgICAg ICAgICAgICAgICAgICAgICAgICAgICAgICAgICAgIC AgICAgICAgICAgDQogICAgICAgICAgICAgICAgICAgICAgICAgICAgICAgICAgICAgICAgICAgICAgIC AgICAgICAgICAgICAgICAgICAgICAgICAgICAgICAgICAgICAgICAgICAgICAgICAgICAgDQogICAgIC AgICAgICAgICAgICAgICAgICAgICAgICAgICAgICAg ICAgICAgICAgICAgICAgICAgICAgICAgICAgICAgICAgICAgICAgICAgICAgICAgICAgICAgICAgICAg TRKiBCl2F5rvCXYhBXMqRO0pUYk0Ru8+XKtQCsHmRNI5fcEskR7YRQ5qr6TbGEhfYAGux3RtIFq7CB8J TBHrBSimEO8GHZcmop6WUYLfREMgxWZHo2iaVsAhMD Y3SORrLkbpWO1YFWXnE7jvhyFjKOMlJNGTBO6CPzScG4LbcS72UPTHTe1+YHvjghFvGjfLDyN8WTAfo7 ZrCWv5AT9RUGEhGfltr6TbTbYgEHOGJZwxWJ6HRGU5IRW3YBEbGd1SMFAnL943okDkZP6PKz4CHtQkOA 6yxs7SJmVnFHAcPzxSMge7DHrgBA2IjGYbXDfVnyNu fCqio7nxGEKjx9Qxuu5wXPI3eeWaMRPkuRGlqYliehAbiCUASFk8nDCNm6haSdXEo6wzw19rZIWVGXWo hQIgDQ7bKe1tEXZvNIH6YfVuVVLNWO3UNQHnITBmvCLhXYMhBQLVPU5ENCmmIAG2JwvclyNeiIZuFJsp ZV2SXCIfitRyFyBfGWJDRAy+Yv8PCL9qu6SjENjyJy UyPO5paq7RKSfPDuJcZ6L1lAYiF7Z1DDxsGv0SWOZoCHGdOrWvZJFVNAnxMJ8PVK0vmnM9XQ4PeCFcUO ZzDDVciYGgZUq4L98fzWNjGWunMD4QTPT+Savannah+Un3KQUJcKUAbYFFlKsClRBAUYpHoW5PxB5FLn8QeR4 XdPF77sYmentOmAWsgWJ0NCL1oCGHeZTEXSF5GqENd yE0mfzQqDAAlSYXKWoAtJ72ddFRzKARkWDM3PDQbZt2XCSZyP9SzvpYvmFdbqiJqXWOmPHBFUL2BPUjr buBdxSUodPoxQD07lHgsPJ4QGq3HYgQeEN0lnv2SgUHoQn1OBYLnQX5AASQvBNQdFEUjANR9IMXzXkEp AAdkKKWhUVUuZCO4FIJoIVPvUS1VZmCeUQTcNkUfQG MmHMRcTQPgms9WIRTyMEWiZaPxTQDzMHLcJOTpGHddBHPxOWHjHFZ2LXXnXDKfKL0RQwQeYHFlIUZ6AW FkICDfRIIxpu6RKRGwUGMaBxraGNOgJLZoWQOkPGcyNATcLWAsKwV8NEGhWKFmIE5KPvYpLYIpQFU3Si xiOHByQXNdzd6QXVHmXNOzQTF3RuUcNMSiJTWcLYow CGQkBUY9XHJuOACvCJFrBP8PAuLcXDCzJPJuMFayZFIuZCGijw1CFCVxLXOsIOG4SDKkDEIjPVTfVEgp KPMoEXJ0VIKnTPIiAHJvBX4ZImUnHUKfULvzGHRxJKDtCDCtqy8QVEGwWQViSVO6PCSdDGUpQOGeVWqj ELZfIGF8PtO6WKRnMULfKN3CJcZmSWCgFOm0SZCmTT QjBQCbjj1XXRMoWUOnPUP8VuEdIXUoNAFsKQksBUWkDBR1OSx3HUUsIZEmGB9QAlBzSNRjPlCaITFdEC JvKOUtsv8ZEBRiSZMjQWm9WQCtAGIkUEKtFSarADByIGWmSMu0LNItJYJlKO6HHpEsDTXkKcSiTtAmXR XsDZAnfx3UIOBgJIYlOWz3RGArHENsSQPfKPpaIAKu CZZcOrMdXPFlRQDcIB7PSoLgDDHaYaJcNOYjZCNpDMYmbm2JTFAuPEExSfG9BQYySCFfSCMfYBz0myUr qSCjYQa2SH7YC6RbxpGzVxgPOe6Sz680HST3YMFaPa3VL8vwTo4gGZCdFDDYPs2VLLo6ZmI8DEY0Zkrn VPS9GdV7UQw3WYU4PXI9EMM4WmK3EDg+EMxvYnL7Et yjXJNjMBZvAFz6PQt5ObMlJxXzWHB7HpA6Vs5hDTLTRc8+WAuwcUWbgEekQZFUYmFaJfI4WRumBHICXm 0K ID Date Data Source [id number] 08/02/2020 09:02:13 AM EDT [facility] Name Value Range Interpretation Code Description Data Sumaya rce(s) Supporting Document(s) Perioperative Nursing Note [facility] QSZSUn0wOtYDCqOq92/IRZtqCRUuy6IfSTkgINx0BPxjMEQiV2UsMKF4sK5bYEE6KImCRpYoQlSdHDQc lbm [file] k+SD6dZKb+Qh4Qc5SskwZ8qkKxCOodUHq5RH3PYMOXS0ZFJq== ID Date Data Source [id number] 08/04/2020 03:23:00 PM EDT [facility] [address] [place] [address] PATHOLOGY CLIA# [id number] Surgical Pathology ReportPATIENT: LELAND DIAZ CASE NUMBER:[id number] #: [id number] Date Collected:08/02/2020Account #: [id number] Date Received:08/03/2020DOB: 1980 Age: 40 y.o. Date Reported:08/04/2020Sex: FLocation: [id number] Attending Physician:MARY KATE Pinoinical Information: RULE OUT CELIACSpecimen: SMALL BOWEL BIOPSY FINAL DIAGNOSISSMALL BOWEL BIOPSY:MILD NON-SPECIFIC CHRONIC DUODENITIS.HISTOLOGIC CHANGES OF CELIAC DISEASE ARE NOT SEEN. GrossReceived in formalin labeled Leland Basilio small bowel biopsyconsists of a light hameed villous friable biopsied segment of soft tissue that is 0.5 x 0.2 x <0.1 cm. TS/1 AP/kb Electronically SignedBy:ICD: K29.90 S. Johnson Vargas, MDCPT: [id number] PathologistI ATTEST THAT THE ABOVE DIAGNOSIS IS BASED UPON MY PERSONAL MICROSCOPICEXAMINATION OF THE SLIDES (AND/OR OTHER MATERIAL), AND THAT I HAVE REVIEWED AND APPROVED THIS REPORT.PERFORMED AT: [facility] [address] [place], [place] [address]THE TECHNICAL COMPONENT WAS PERFORMED AT [facility], [address] [place] [address].MODEL AND PATTERN SUPERVISOR: SOFY ASH M.D. [facility]# [id number].LELAND DIAZ Page 1 of 1 Name Value Range Interpretation Code Description Data Sumaya rce(s) Supporting Document(s) ID Date Data Source [id number] 08/02/2020 08:34:56 AM EDT [facility] Name Value Range Interpretation Code Description Data Sumaya rce(s) Supporting Document(s) Anesthesia Preprocedure Evaluation [facility] TFQPAq8cFqVZGbNg61/VHQqwGGZjx3KnYAvvUMa5DGaeSQAdR8RxNIQ9bK5bDBQ4XEwUXmQmKbNpMOXd [facility] [file] certified hyperbaric technologist/VbYra/59AvHN0yrtk1jzBBXiMTS7XDjObl0g5zJwayy/BvRC0+l8dl31ru8nNh9br6cO/DPMscSF [file] YPOdAO6zZHMZNk9+IXlypOAjzLhhBQQESaQ5UbQ4KVfcATMFPv3G ID Date Data Source [id number] 08/02/2020 07:40:33 AM EDT [facility] Patient: LELAND DIAZ : 9 [facility]ACS [facility]: [facility] COMPLETE Provider: NEMO CASTILLOTORY:40-year-old female with severe epigastric pain, nausea, and [...] rce(s) Supporting Document(s) ID Date Data Source [id number] 08/02/2020 07:03:54 AM EDT [facility] Name Value Range Interpretation Code Description Data Sumaya rce(s) Supporting Document(s) Care Plan [facility] JSDCRk9yFrTIGlUe92/SUYucRRIfm5IkYLghDYr8OOteHYXtB3AmIJQ5uF4vCRG6PJcREcRxQfYsBQSk lbm [file] AgICAgICAgICAgICAgICAgICAgICAgICAgICAgICAgICAgICAgICAgICAgICAgICAgICAgICAgICAgIC AgICAgICAgICAgICAgICAgICAgICAgICAgICAgICAgICAgICAgDQogICAgICAgICAgICAgICAgICAgIC AgICAgICAgICAgICAgICAgICAgICAgICAgICAgICAg ICAgICAgICAgICAgICAgICAgICAgICAgICAgICAgICAgICAgICAgICAgICAgICAgDQogICAgICAgICAg ICAgICAgICAgICAgICAgICAgICAgICAgICAgICAgICAgICAgICAgICAgICAgICAgICAgICAgICAgICAg ICAgICAgICAgICAgICAgICAgICAgICAgICAgICAgDQ ogICAgICAgICAgICAgICAgICAgICAgICAgICAgICAgICAgICAgICAgICAgICAgICAgICAgICAgICAgIC AgICAgICAgICAgICAgICAgICAgICAgICAgICAgICAgICAgICAgICAgDQogICAgICAgICAgICAgICAgIC AgICAgICAgICAgICAgICAgICAgICAgICAgICAgICAg ICAgICAgICAgICAgICAgICAgICAgICAgICAgICAgICAgICAgICAgICAgICAgICAgICAgDQogICAgICAg ICAgICAgICAgICAgICAgICAgICAgICAgICAgICAgICAgICAgICAgICAgICAgICAgICAgICAgICAgICAg ICAgICAgICAgICAgICAgICAgICAgICAgICAgICAgIC AgDQogICAgICAgICAgICAgICAgICAgICAgICAgICAgICAgICAgICAgICAgICAgICAgICAgICAgICAgIC AgICAgICAgICAgICAgICAgICAgICAgICAgICAgICAgICAgICAgICAgICAgDQogICAgICAgICAgICAgIC AgICAgICAgICAgICAgICAgICAgICAgICAgICAgICAg ICAgICAgICAgICAgICAgICAgICAgICAgICAgICAgICAgICAgICAgICAgICAgICAgICAgICAgDQogICAg ICAgICAgICAgICAgICAgICAgICAgICAgICAgICAgICAgICAgICAgICAgICAgICAgICAgICAgICAgICAg ICAgICAgICAgICAgICAgICAgICAgICAgICAgICAgIC AgICAgDQogICAgICAgICAgICAgICAgICAgICAgICAgICAgICAgICAgICAgICAgICAgICAgICAgICAgIC EeIQQuWFTxMTDcFPRiQWNpACYbBQYxXGVyZVLhXPIpHJGwQQYaBIGnEWYoBHEeQEu5H9xfGPUfUDDyVJ 0yCQv1Dv6+GEvXSaEyTRB0hhUenT6YVO0vb5YtOOhm FZDpy8JiEKk5ZA9PJPIhIUjzFS7FZCydsx3TELQmEPIdhHJWu3nbLvHeTXB0LPFqMywiRI9TIIVqP9js dsJoGRSiMDMTLZ0RHlLwU0WwbP20MAKZRd9+PZugqbBfAetDBbFoIDKsz3LjSVu9DC7OUGQuBqkpb3Ke WpOjVFCXOMioSR6MFXN2ZJZrMXPvYa7CIXHkG625fs MlEO6EWk8OHsRpML7rph9XXxKuGPKqXvbOEpt4WTnrKL9UsBLfFSbHLCHiIGTsBR3sOpjbXM1adlPBZC DgbqP7pXJkEAuJMYS3RIVnDcLfTqGgQdYpUEz3GYLsTG6eEOhyMZ3LDIY8RGqfVDVcMCYyK3uTLuFvMO ujGMKjtEfsEY4BAdOsQ0XrjqPgiTLpCLDkNHTCNo7+ SMlhjiPjTvjGZjWuHYCug4TyDBt4MY2ZLUXjUGdrZL1UBFXzyS0eFZaqHV9KLsOxQXJrCUZDPxTpT47k bKRjOLw7T6CkYwLrRLOpQpisOPNyQMwwYhRpXGVjJbDjLBzaXB8+ID4+GQfyDW8NUYqnqsTlEQVyKx2P QAXsQHJbDP3bIHLsKREmY7L2zRqsCUFOLzAfO8jkce xfGR4mBBQqN811dSmoqbEvAPKnBPPmTk7ZROFmLDX4HKKrbXBdRIsyUKHODHuzCM5NnPXhKLF1fG5hKD ylAAJrOOAzS4uGSlIeeZmpAV07pYpyoiAhyKUuBAr+Ws0INZ4ol4BnIOq3loPzIEvfEVNgZTydHPNeAO UfXJJyVYY8IGM0JPCMJcZhIKToCKYcNHpuJZCtZOTs kp4QYUGwTFZjOxCrUbMyVZCpNYGsOUmjJUMwBCI9CgjzGPBaGXAyJT3FXkMuTZMkHQQuJVqtNCMyNNVv xj8CGGQfLIFkBgUcYwTbRKIbJLUfIAdwIXXwNMGtDpK5SNKiLJMhHT4UZsGeDUHnNDExOvStFNDaKFWu vc8DNEYuMDPsKyX6NJHoWBRqDHCkXKeaDOUfFQGoRT KaOKNmPLRdRJ8GJxYgVASaBGD8JIdbLKKrYGJall1HPJSvLOIzVZacNvCsPPUpNEZdNXrzCQDqKSG2FV p7PYTbTCCcTF8MGvOzBUIpYZU3CUYpFGYfMPWuzx5JUPEyOTIhShD5IZZeKTEsQWAeNKdfDEZxEYD8Ie L5EIAsQJKgAV0FGxAkYRFkCUweLuObQIZgYDGikp4H LHVaWMQzQiXdYbRmBRZqLHTpIApsNYPuEVY9HjAoSLAvMZXhPL5RJlWpTVOgCUkcOHHaROQvKTJnbk0E ZEYjFEAoAOP3TLVyZIQcJHYyYKixLUTtMIX9FJFnPCLoHKFaAD7UBrBeFBUqYGi8HGXsJUXnZKEnqa4L uZZyrNhott2OWPaKIu5DnUyoQSBdMMpmPi2czPXoXg ObAWZVUv7BdsRiIHNrIASQGVzfMZMsKKtjRwVsLAC7KHL2PTClAKDtLBVmUWDgRQvxBXwgOya6TrA8Ll QjBcZ3GoKxSuRwHpDeIsCzYrApY8LgGSQyZJK9SKo+AG7tTVi+Ak5Ah0AgwqL0xaWiHFd1SQRhAGiiYS VPRg0K ID Date Data Source [id number] 08/02/2020 07:03:19 AM EDT [facility] Name Value Range Interpretation Code Description Data Sumaya rce(s) Supporting Document(s) Nursing Note [facility] YSMUPr3pHyYQMlVs06/DKIpbNRMay0DhSCbhGHq3QAtvIQIjU1XqDLR0jC5zXKU2QDeMWgCvVvOeGETl lbm [file] RxEqRFV9G2CpSOXjEoZ3ZtElWw4sBVBMIk3+MRkrrUBoxTneKKTUQch3ZHTPSnUdVT3GWQy= ID Date Data Source [id number] 08/05/2020 08:00:00 PM EDT [facility] Name Value Range Interpretation Code Description Data Sumaya rce(s) Supporting Document(s) Pancreatic Elastase, F 367 mcg/g >200 (Normal) Normal (a pplies to non-numeric results) [facility] Test Performed by:[facility] [id number] [place], [place] [address]Rqg Director: Julio Gracia M.D. Ph.D.; CLIA# [id number] above 1 analytes were performed by [facility] ([id number]) ID Date Data Source [id number] 08/02/2020 05:52:00 PM EDT [facility] Name Value Range Interpretation Code Description Data Sumaya rce(s) Supporting Document(s) Stool WBC No WBC's Seen [facility] The above 1 analytes were performed by [facility] [id number], ,[place] [address] ID Date Data Source [id number] 08/02/2020 10:52:00 AM EDT [facility] Name Value Range Interpretation Code Description Data Sumaya rce(s) Supporting Document(s) Campylobacter Not Detected Not Detected Normal (applies to non-nume zaina results) [facility] Norovirus Not Detected Not Detected Normal (applies to non-numeric r esults) [facility] Rotavirus Not Detected Not Detected Normal (applies to non-numeric r esults) [facility] Salmonella Not Detected Not Detected Normal (applies to non-numeric r esults) [facility] Shiga Toxin 1 Not Detected Not Detected Normal (applies to non-nume zaina results) [facility] Shiga Toxin 2 Not Detected Not Detected Normal (applies to non-nume zaina results) [facility] Shigella Not Detected Not Detected Normal (applies to non-numeric r esults) [facility] Vibrio Not Detected Not Detected Normal (applies to non-numeric r esults) [facility] Y. enterocolitica Not Detected Not Detected Normal (applie s to non-numeric results) [facility] Enteric Pathogen Panel:Testing performed by reverse skills auditor, PCR and array hybridization.A negative test result does not rule out the presence of diseaseThe above 9 analytes [address] performed [facility] [id number], ,[place] [address] ID Date Data Source [id number] 08/02/2020 06:26:00 AM EDT [facility] Name Value Range Interpretation Code Description Data Sumaya rce(s) Supporting Document(s) AST 16 IU/L 15-37 Normal (applies to non-numeric resul ts) [facility] Sulfasalazine and sulfapyridine have the potential to falsely depressAspartate Aminotransferase results. Baseline values before medication administration are recommended. ALT 36 IU/L 13-56 Normal (applies to non-numeric resul ts) [facility] Sulfasalazine and sulfapyridine have the potential to falsely depressAlanine Aminotransferase results. Baseline values before medication administration are recommended. Alkaline Phosphatase 135 mIU/ml 50-136 Normal (applies to n on-numeric results) [facility] Total Bilirubin 0.40 mg/dl 0.20-1.00 Normal (applies to non-numeric results) [facility] Blood Urea Nitrogen 14 mg/dl 7-18 Normal (applies to non-nume zaina results) [facility] Creatinine 0.56 mg/dl 0.51-0.95 Normal (applies to non-numeric resul ts) [facility] N-Acetylcysteine (NAC) and Metamizole lemus ve the potential to falselydepress Creatinine results. Baseline values before medication adminstration are recommended. Patients undergoing treatment with phenindione will have falselydepressed results. Patients on phenindione therapy should be tested with an alternativeCREA method.Toxic levels of acetaminophen may lead to falsely depressed results forpatient samples. Glomerular Filtration Rate >90.00 mL/min/1.73m2 [facility] GFR Reference Ranges:Normal Function or Mild Renal Disease,if clinically at risk:>or= 60Moderately decreased:30 - 59Severely decreased:15 - 29Renal Failure:<15 Please note that the MDRD equation requires an additional adjustment forAfrican-Americans (multiply the GFR result by 1.210).Glomarular Filtration Rate (GFR) is estimated based on the MDRDequation, which assumes a steady state for creatinine ([employer] Int Med 139/2 137-149, 2003), as recommended by the Nationaldn Disease Education Program in conjunction with the National Institutes of Health and the National KidneyFoundation. The Castor method used in calculating this result is traceable to IDNY standards. Glucose 213 mg/dl 70-110 Above high normal [facility] Sulfasalazine has the potential to false ly depress Glucose results. Sulfapyridine has the potential to falsely elevate Glucose results. Baseline values before medication administration are recommended. Calcium 8.6 mg/dl 8.5-10.1 Normal (applies to non-numeric resul ts) [facility] Total Protein 7.1 g/dl 6.4-8.2 Normal (applies to non-numeric re sults) [facility] Albumin 3.8 g/dl 3.4-5.0 Normal (applies to non-numeric resul ts) [facility] Sodium 136 mEq/L 136-145 Normal (applies to non-numeric resul ts) [facility] Potassium 3.9 mEq/L 3.5-5.1 Normal (applies to non-numeric resul ts) [facility] Chloride 103.0 mEq/L 98.0-107.0 Normal (applies to non-numeric resu lts) [facility] Anion Gap 10.9 [facility] Carbon Dioxide 26.0 mMol/L 21.0-32.0 Normal (applies to non-numeric results) [facility] The above 16 analytes were performed by [facility] [id number], ,[place] [address] ID Date Data Source [id number] 08/02/2020 06:13:00 AM EDT [facility] Name Value Range Interpretation Code Description Data Sumaya rce(s) Supporting Document(s) PT, No Coag Tx/Coag Tx Unk 13.1 Seconds 10.2-12.9 Above high normal [facility] Attention: Effeciive 03/16/2020 The nor mal [...] 0.9-1.1 Nor mal (applies to non-numeric results) [facility] Suggested therapeutic INR ranges for ora l anticoagulant therapy: Indication:INRPrevention and treatment of DVT and PE2.0 - 3.0Prevention of systemic embolism with atrial fib., acute ND and 2.0 -3.0 tissue prosthetic heart valves.Prevention of systemic embolism in patients with mechanical heart2.5 -3.5 valves.NOTE: The INR is only valid for patients on stable oral anticoagulanttherapy. The above 2 analytes were performed by [facility] [id number], ,[place] [address] ID Date Data Source [id number] 08/02/2020 06:10:00 AM EDT [facility] Name Value Range Interpretation Code Description Data Sumaya rce(s) Supporting Document(s) WBC 5.06 x1000/ul 4.80-10.00 Normal (applies to non-numeric re sults) [facility] RBC 4.27 x1Mil/ul 4.20-5.40 Normal (applies to non-numeric re sults) [facility] Hemoglobin 10.6 g/dl 12.0-16.0 Below low normal [facility] Hematocrit 34.7 % 37.0-47.0 Below low normal [facility] MCV 81.3 fL 81.0-99.0 Normal (applies to non-numeric resul ts) [facility] MCH 24.8 pg 27.0-31.0 Below low normal [facility] MCHC 30.5 g/dl 32.2-37.0 Below low normal [facility] RDW 17.0 % 11.5-14.5 Above high normal [facility] Platelet Count 482 x1000/ul 130-400 Above high normal [facility] MPV 9.4 fL 9.4-12.4 Normal (applies to non-numeric resul ts) [facility] Neutrophils 60.0 % 40.0-74.0 Normal (applies to non-numeric resu lts) [facility] Lymphocytes 25.3 % 19.0-48.0 Normal (applies to non-numeric resu lts) [facility] Monocytes 10.5 % 3.4-9.0 Above high normal [facility] Eosinophils 2.6 % 0.0-7.0 Normal (applies to non-numeric resu lts) [facility] Basophils 1.2 % 0.0-2.0 Normal (applies to non-numeric resul ts) [facility] Immature Granulocytes 0.4 % 0.0-0.5 Normal (applies to non-nu meric results) [facility] Nucleated RBCs 0.00 % 0.00-0.20 Normal (applies to non-numeric r esults) [facility] Abs. Neutrophils 3.04 x1000/ul 1.92-8.31 Normal (applies to non-numeric results) [facility] Abs. Lymphocyte 1.28 x1000/ul 1.20-3.70 Normal (applies to non-n umeric results) [facility] Abs. Monocytes 0.53 x1000/ul 0.14-0.97 Normal (applies to non-nu meric results) [facility] Abs. Eosinophils 0.13 x1000/ul 0.00-0.76 Normal (applie s to non-numeric results) [facility] Abs. Basophils 0.06 x1000/ul 0.00-0.22 Normal (applies to non-n umeric results) [facility] Abs. Immature Gran. 0.02 x1000/ul 0.00-0.02 Normal (appl ies to non-numeric results) [facility] Abs. Nucleated RBCs 0.00 x1000/ul 0.00-0.02 Normal (appl ies to non-numeric results) [facility] The above 24 analytes were performed by [facility] [id number], ,[place] [address] ID Date Data Source [id number] 08/01/2020 05:22:27 PM EDT [facility] Name Value Range Interpretation Code Description Data Sumaya rce(s) Supporting Document(s) Nursing Note [facility] HOZNEs9xNjGGVgWd81/QYTciXHCnh5QwFGlaWUi7YOqjTZTzB0McUNV2nI0hYBG1KGmCGfSeYuWeVEXx lbm [file] ICAgICAgICAgICAgICAgICAgICAgICAgICAgICAgIC AgICAgICAgICAgICAgICAgICAgICAgICAgICAgICAgICAgICAgICAgICAgICAgICAgICAgDQogICAgIC AgICAgICAgICAgICAgICAgICAgICAgICAgICAgICAgICAgICAgICAgICAgICAgICAgICAgICAgICAgIC AgICAgICAgICAgICAgICAgICAgICAgICAgICAgICAg ICAgDQogICAgICAgICAgICAgICAgICAgICAgICAgICAgICAgICAgICAgICAgICAgICAgICAgICAgICAg ICAgICAgICAgICAgICAgICAgICAgICAgICAgICAgICAgICAgICAgICAgICAgDQogICAgICAgICAgICAg ICAgICAgICAgICAgICAgICAgICAgICAgICAgICAgIC AgICAgICAgICAgICAgICAgICAgICAgICAgICAgICAgICAgICAgICAgICAgICAgICAgICAgICAgDQogIC AgICAgICAgICAgICAgICAgICAgICAgICAgICAgICAgICAgICAgICAgICAgICAgICAgICAgICAgICAgIC AgICAgICAgICAgICAgICAgICAgICAgICAgICAgICAg ICAgICAgDQogICAgICAgICAgICAgICAgICAgICAgICAgICAgICAgICAgICAgICAgICAgICAgICAgICAg ICAgICAgICAgICAgICAgICAgICAgICAgICAgICAgICAgICAgICAgICAgICAgICAgDQogICAgICAgICAg ICAgICAgICAgICAgICAgICAgICAgICAgICAgICAgIC AgICAgICAgICAgICAgICAgICAgICAgICAgICAgICAgICAgICAgICAgICAgICAgICAgICAgICAgICAgDQ ogICAgICAgICAgICAgICAgICAgICAgICAgICAgICAgICAgICAgICAgICAgICAgICAgICAgICAgICAgIC AgICAgICAgICAgICAgICAgICAgICAgICAgICAgICAg ICAgICAgICAgDQogICAgICAgICAgICAgICAgICAgICAgICAgICAgICAgICAgICAgICAgICAgICAgICAg ICAgICAgICAgICAgICAgICAgICAgICAgICAgICAgICAgICAgICAgICAgICAgICAgICAgDQogICAgICAg ICAgICAgICAgICAgICAgICAgICAgICAgICAgICAgIC AgICAgICAgICAgICAgICAgICAgICAgICAgICAgICAgICAgICAgICAgICAgICAgICAgICAgICAgICAgIC VzLJs3T8thDXFeRDKsOX1hNOf6Qo7+YMoUYvNuFDN9bsXlkK2LEU9jl9VzHAwxOWYvm8CuFHh3DP6WQB GpBGxuQJ2FMWwuem6GASFkFIIynWZPw4opZuZlKHF0 ADLjFlicFB9JESPfM9xalaTrQXVbGHOBLB0TAnRgV8BllD93AREDEp3+LYeihoQiFxqFGqZkNRZpd3Cf NLw1MX7EAIRnYumnb4PjMgSkTHDYSWvmSC2EFYE9XSXdWGNmOu4AHEVrS861hkIfLW7QDp1TWfTpVH0t rj0NOvNiLOFgSfxHRxz1IXdiJD6JaCKmWBbYiVGkrI 0eGP1laTGaYwmxHOmiX8auZIZbsGyiy018r5nzLSYYXxSduHUfMH8wYe3nSEZuKUA9OxT9IMGWXB2JEC PhPMLmyOOzAPKcSIKEQO0FNHcoCUN9OilalwAzfAZxTHutTY3VAAMakfUbHyCvABRBHQd+Mh8ATH4gy4 QiFCcbELLiPQ5amd9BAWpOZnRhZ2F2wWHaQ3H2ICza Eg0NPTDaGUNuZcJbQKSHJUqmJH4YVV4ismL4LG3WtSMcJMVtUQGkyRSvIRy4A32xtZKpKFxvGX6PWFN+ Savannah+Lr7ELRFkRAOaVNBnUwIbGBLWLoJnA9KlT7JEg7IiR8MoSK73oIebugDzPXkvTB3RBD7sOBEjLOZV LH5JdJPvsS1efrXnRzYzJCQEVpUqB62fuCDfWLWjZB YsTMOuXn9VDRFkU6QrvdIfnZtiaiByQFXlGKZZJP6VDPsrmdXeqCZpfRexQI25pBibSW3QSl0IJjFcTL 6htg9PmHDfOb1QAHYkSD4LIVNiQNSsCFLsFZY7IAWhAbEhBMqdIOMpHBDiHYQ1BFQhTXNqXH4CBbIdMQ FxMxKaUaGhVQPoAKKblh9JHDHhLFYvNKm9IVAyACLy RGIwYRlvYJQfWDEgRZB6XUEbBWBkRP3DNrUhZUXpNIL9UqhiRMSqABLvdv5AOAXpBYFnVlh6HbLdKQNh WKEfJAunVCZaYLJbSeTmIKUoWZBmJU0WHfUfOCHvZPM1UvTuTMUaXOHezn5ADMGoJVSaXQYgLaDqFWOt ZQJpFFtuGUCyTNR4ZMd0QUFvYZSxDW1CIzOxSRZnNE FzWcGjOLKyCXItwh2NDEOiJGYwSAQ7FFTlBVWcRTAtJVkiEMEfWEF3LADqPMBvOSVjDO7APuMzKPLiPM qrFUbqLTKmZTAcbw3PTCJaNCVaILOhIYEwCBRhNFWfZZgzZXGoICP6LGZ6RBYeUZNxWT4TSxMtOBNcHI z1OQEyMIOqYMUyir2OBEChQUDmBKU6LsOdZXOdTDGe TWdeXRUeOQG6WVHiLTDoNSJiLS4HEkSvXLFzHkKvCGJrNORnHSAdvf3ZJGFtSUMpXFDwVZKnGEYfQNKw AJewFHTwVJVnMZC4RVMqAGVyRP5XCcNfMVUoXdI9AgpcUEZyWJGikd7QDLXdHOBeGbA9FFJyMCCgMEQb ZMk4zaAslJBaFXq4XE9LJ3VgimNiUnFPRb7Nw750FN J2QQHbYw2SQ5obNa4hUJJvPKRXXk5JHGe7UqsdSvBgZWJ0KSR8AUJ7BGN8EYa8FIJaNnXbIUItCYP+ID p3JhTrJTYsSTa0JlQuLyJ9TFA9NYceDbVfCDT5DiT9Uw8uLEJBXe5+QVkwcQCjiScyBOKGKrEyMyO5CI ftXSCDWc5F ID Date Data Source [id number] 08/01/2020 05:19:31 PM EDT [facility] Name Value Range Interpretation Code Description Data Sumaya rce(s) Supporting Document(s) Care Plan [facility] DOCWNs2cBfCNUuDb03/CRHpdWUZeq0OxJDtvPBe0RJmfMDNwH6XsNQJ3gU0dIZM7VVlPOdUaOsNbQLTw lbm [file] ICAgICAgICAgICAgICAgICAgICAgICAgICAgICAgIC AgICAgICAgICAgICAgICAgICAgICAgDQogICAgICAgICAgICAgICAgICAgICAgICAgICAgICAgICAgIC AgICAgICAgICAgICAgICAgICAgICAgICAgICAgICAgICAgICAgICAgICAgICAgICAgICAgICAgICAgIC AgICAgDQogICAgICAgICAgICAgICAgICAgICAgICAg ICAgICAgICAgICAgICAgICAgICAgICAgICAgICAgICAgICAgICAgICAgICAgICAgICAgICAgICAgICAg ICAgICAgICAgICAgICAgDQogICAgICAgICAgICAgICAgICAgICAgICAgICAgICAgICAgICAgICAgICAg ICAgICAgICAgICAgICAgICAgICAgICAgICAgICAgIC AgICAgICAgICAgICAgICAgICAgICAgICAgDQogICAgICAgICAgICAgICAgICAgICAgICAgICAgICAgIC AgICAgICAgICAgICAgICAgICAgICAgICAgICAgICAgICAgICAgICAgICAgICAgICAgICAgICAgICAgIC AgICAgICAgDQogICAgICAgICAgICAgICAgICAgICAg ICAgICAgICAgICAgICAgICAgICAgICAgICAgICAgICAgICAgICAgICAgICAgICAgICAgICAgICAgICAg ICAgICAgICAgICAgICAgICAgDQogICAgICAgICAgICAgICAgICAgICAgICAgICAgICAgICAgICAgICAg ICAgICAgICAgICAgICAgICAgICAgICAgICAgICAgIC AgICAgICAgICAgICAgICAgICAgICAgICAgICAgDQogICAgICAgICAgICAgICAgICAgICAgICAgICAgIC AgICAgICAgICAgICAgICAgICAgICAgICAgICAgICAgICAgICAgICAgICAgICAgICAgICAgICAgICAgIC AgICAgICAgICAgDQogICAgICAgICAgICAgICAgICAg ICAgICAgICAgICAgICAgICAgICAgICAgICAgICAgICAgICAgICAgICAgICAgICAgICAgICAgICAgICAg ICAgICAgICAgICAgICAgICAgICAgDQogICAgICAgICAgICAgICAgICAgICAgICAgICAgICAgICAgICAg ICAgICAgICAgICAgICAgICAgICAgICAgICAgICAgIC XvXWGpRYFhEORuDOLaBLHlKZSnAWTkEVFuBWIgNGYqHHx0K5dnGQGjAKSxUB2wJQz5Ls6+DQoNCmVuZH C5uvKneJ1LDH5ue7UnCBxzBLZcr3SgXXe7ON9ACMTgAUqnGP1WGDqruw0DXQQsQTBnoVRCd8fwNcNgWO M8IKGtBvikUL5MNQYzB5zudzFaWDVoIMECFB7ZMbNp J2RmkM74ZMTCIv2+XUqkftDfJsvGVmP0ZYUeu2HbKMj1HP7ZUZQmJcxqp0LmShWcTAEUMCoyEI5THJB5 EAM9TZLbUc1CZBKzT050hhXmIN6WOa8EEuPfUE2zqu1TIkWwGMEhGiyKQsd7FKzsJN5YxSNpLFfTFIMb XCCuEV1tSiwbIHhmK1mpOTSmcYzzg134z8dsIXXNAd HucHIxLM4mLd5rPXCqSFI0VwT6XFFSYB9YZYQaFJRcnGBmNBMlEXVBSG4ODPooSYC6UjnwehKgsNGqLZ hiHI3PWKToabKlShUqDHLEZIv+Nt4EZB3ns6XmKPtjFmHjEL2grb6BWGiCUtWsQ4J5iWKrM1J1RQzfLw 6XKHGaNNMhYeKcIRWVOHtzMZ5CZW4oqpM4CA0JkDYc KAAoKRQmvTSvMLq7X74wcRWuKSsrYT6NBRK+Savannah+Ix0XJADrPEDoBAZrFvHnVOMEVuVwY9NlJ4NEb4Lj X6CkUF71kSosybHjBXgqWM4KIO2wXPCxKLFZSI9OcGVfiF4ntyZcGXWxQOWXYmInJ53nrMQnKFDbZOD3 TTVoMh8IAVYnQ4GtugHdlWcqgaDuRZZqDQHEME9INW wbwiVjoIYdoJtiXG71mGbtUF4TCx2KLjSoQJ9gor9SaNKyBd9BLAAkAG1ANUShMFKoJNJmOSE6ARPcVc RrUWypWGIhSXGlOKI2UMPhMIVsZK8VFrWbAZKnBaI6OVCwKLTjTJMdcs1FNZHzXVLfVpT2FXHuOORySD JbCTeeSXItHOQgARX0MFJaSOClNY0QEtAxPSLkDMQ3 TUIsLHArJIEsvp6UECQwOPXxDqyvOQQyXGVjTVWwMWgzWEDoNBZgFRjhECWgNIByBZ2SMhQrRHCzBKQi KoQdYZEoOIRvcz3UZUHgKBCvMRA0IYWxBUFuPQHcSGmgVEYhWSW3WnX4CDYoIQQtMR7CMjXaUJGzGCP8 PQPgONJxXYXdro8JRLJbEJCvTJC9QgCoWZLaBJZvSE zoDXLkPGP0RQG0SZBeOZThEN2BOvJvFOQjSRpoNuDgBNHbOHPepw1EXRTxEZMoOMT8OAVpPFDvUFRbKV jaMSHqYYI3DbDiFDAgTMLiBX8HNaNqWUYjQVd8JDtxFLEiHPWpmw5YRRFrAKSmTVh8IONpIHNfQLTrOY zdYMNuZZD4RKx3JAXpVBUtNV6VJrEuVBVqCgBjCAKc FWKaNTYtdw7UCBZoHYAvTTZrLBCgQUVsJEIeSIvmWBTxWXAqOjRbQNYkQCAkIV7EGdHqPLUdKjS9AMCd WDTwSNUvsl9YCQMwIXKkXGbhJKGuZPKuTRLkRFsbECBxBNLbJdZlQXDxAWXbVI2RYvIdZOZcDtA9UhFy NNWsSXObbz3PCWAdZUFvXfF1OqSlDKHtNAZxFPb7uq YkjZBpZAw6UP4SJ0CoflZqEfuWJn7Fv047QGG8YGFgIp2SD1iqXq7sCXKpKFNBKs3ZUFl9PXX6ECL0L1 WaHbseILHkWASdQFAgGEg3IkB4NeSeDMY+PQm1KQewCQbxAeWtIDAkRFU8QqPfPwC7GAGgLBp4NWMzZm 6ySDQNJr6+HYlxxNNnkMiyGWCJBoTtAHT0TMeqMJXLPz9I ID Date Data Source [id number] 08/01/2020 03:11:28 PM EDT [facility] Name Value Range Interpretation Code Description Data Sumaya rce(s) Supporting Document(s) Consults [facility] KIQMPc8bLxXINeRt89/VYFclRYNyd3PkYYpmXBg6SXonBUAhF1ImAHB0fT4jTOR9YMpRJsNhVgZhMJSv lbm [file] AgICAgICAgICAgICAgICAgICAgICAgICAgICAgICAg ICAgICAgICAgICAgICAgICAgICAgICAgICAgICAgICAgICAgICAgICAgICAgICAgICAgICAgICANCiAg ICAgICAgICAgICAgICAgICAgICAgICAgICAgICAgICAgICAgICAgICAgICAgICAgICAgICAgICAgICAg ICAgICAgICAgICAgICAgICAgICAgICAgICAgICAgIC AgICAgICANCiAgICAgICAgICAgICAgICAgICAgICAgICAgICAgICAgICAgICAgICAgICAgICAgICAgIC AgICAgICAgICAgICAgICAgICAgICAgICAgICAgICAgICAgICAgICAgICAgICAgICANCiAgICAgICAgIC AgICAgICAgICAgICAgICAgICAgICAgICAgICAgICAg ICAgICAgICAgICAgICAgICAgICAgICAgICAgICAgICAgICAgICAgICAgICAgICAgICAgICAgICAgICAN CiAgICAgICAgICAgICAgICAgICAgICAgICAgICAgICAgICAgICAgICAgICAgICAgICAgICAgICAgICAg ICAgICAgICAgICAgICAgICAgICAgICAgICAgICAgIC AgICAgICAgICANCiAgICAgICAgICAgICAgICAgICAgICAgICAgICAgICAgICAgICAgICAgICAgICAgIC AgICAgICAgICAgICAgICAgICAgICAgICAgICAgICAgICAgICAgICAgICAgICAgICAgICANCiAgICAgIC AgICAgICAgICAgICAgICAgICAgICAgICAgICAgICAg ICAgICAgICAgICAgICAgICAgICAgICAgICAgICAgICAgICAgICAgICAgICAgICAgICAgICAgICAgICAg ICANCiAgICAgICAgICAgICAgICAgICAgICAgICAgICAgICAgICAgICAgICAgICAgICAgICAgICAgICAg ICAgICAgICAgICAgICAgICAgICAgICAgICAgICAgIC AgICAgICAgICAgICANCiAgICAgICAgICAgICAgICAgICAgICAgICAgICAgICAgICAgICAgICAgICAgIC AgICAgICAgICAgICAgICAgICAgICAgICAgICAgICAgICAgICAgICAgICAgICAgICAgICAgICANCiAgIC AgICAgICAgICAgICAgICAgICAgICAgICAgICAgICAg ICAgICAgICAgICAgICAgICAgICAgICAgICAgICAgICAgICAgICAgICAgICAgICAgICAgICAgICAgICAg ICAgICANCjw/rCGmC2ohaBSnqgJ4R3vyJs3ZQx1DCD2cf3BhFOPnDCkbhrIwSgqYPkWoHNDlQfxCJdg2 BZgwTF9MqWQtZ8BpM7EjIWahOI1GAEMtTSPlmOAxWK ZzKCRyNjI0FDReWRgrWJ0LpUHhICypINIfKMTuAlIeYSMxHKReHMKmRG4KRIYyK505shJsKg8EGh1ECs GmMX6zex0WNmztMJHcFacATfw9IPciWV2EfSAkmWTzOZZtUDBHQxSkW0xja9OqEoJsIMGDAQmeGI3Nw7 VudCAxDQo+Of0LGO0ej7QvEGnhINZzUP9mzn1KXXaS YrSlI0PjtKmkMMZmqmV9eTWcNIL0ZVCzJAZephALBfVqTC95yHDeEW2PRBR6FZJjCiQfEcXtDdRcAMK4 IXYpXF1oEKciKQ0RGSK5GXvnMVAvCPCcO2eUQrUtZOydWCOsmYraQP5YBiFkN7DluzUcgBWzNFXjACQD Cj4+FLdkgcEtMjdSUcUaGHUyi6JoGPp8VQ6IEMUlMY zuAK4NDLCjoH3xFYbeFU0NAvEtOiGvRJRHYwUxB04lmVEtLSm7K4RdApWeCONnJrvjZAFjVQsqWiJfUC MgWyBdDQogID4+ID4+TWjpJF1NPGgkagImMGFeYp5CJZYiUPWsLS6yTENaPOKcU0R4cZbkACGZQaGbV4 zwmzppDF9bCSFoY288oFhhmaUmGKI1QHEcFo3VVIDp VGF4NHMwxFHgJlmwFABOBHpqYK0UbQNeVTZ6uE3gLNojAJCdDHOpA3zADnWrlMdhOR06gJcvxhZbaWLn DQo+Xg6QGC5xj6AxUGo3ddYaJFqlNGYwJGxxPUWsGLIiQAClOKC3ENR1CXDBSsClXVIyGXYjFFxcTLWp QEDese6TCFOnLASgAxJeWEJzVLIaUXGbRDjtLEMpZA R6NYy3LKMjFTUaXE3IZaPoSSPeOABpPFdePTNpLZEvkh2WFSLoTMPjYmu7ZgApHZVyRKNqKJzjTNOnNR ClHUX4YGZzSTMpTC4RUgYuBPDpWIP1BKBcLWLwFMTkxu1OUBBfMZDeEnx8AkEeHLOtYAYgVWemWSQkQJ K8SNS4NCMnZPZhVK1BReHaVFYkMMq6RVUpHCFuZWYh xv8JHDZdMLRaPIWzSEBaHXUbHTTkMOnkFVPfNEO5BJEaYFLbMLXzDW9IApKmPPOlWUjvTSXvQARrQKSt fg5RDILiIUUrSKg9OJVbTZVjPAAdEOpfVHXnWZNqUNC0RVNcCACaUF9SLvZdSQBdTCOsYCFwPYVnBLCf ha5BIQKlAGHxUuE3YTYhRVKtWBSuJWhaIJGeANBmMM J9YBZdQUVqCU9VCnUmXRFtTnGqQKPwCVAjHXHnaq0XRVAkWULzSyC9BZLwBXToPYCwFYpyQLHiTJBlWu XvBSBkFSCpAM2GUsIaLXQuXxW8JRZuJYFmKHVeye9RUKQlXECtWDraDDLtQWXeRDSiHJewTRBaRQK4IQ OcBSJqKSJnDE3GDwQdYXFhNtT6CRUrJQGmCTSqce6V MUOjYYXjGwDeOGInOHFhWDEfNBmcWYJtTMO6QxIrJCCrFXSfQB9NUbHvYRNcGzQ1DJSmBGRnRYClvr8A IQHaYWQwPFF9LXCqLUXcJVFoNGbcWSKuFRF7KLN7KAUxDHUpJO6TGeKnVRJeLvnmTAMsNYMbVPEaan2C qROuuSjtyd9HJBhEAe8GlWasRIWvSKxsRu9xhBBhXQ EoZYHPAy7AvxEtWKPuHXWDSAyeBGIbDQU9QYC8IZV8GNCiGKA6VVR3VaH1LUytNSZjMLy6Zld9GvI0Jy OxPqiuSjr1LOI3VMW7NUSwOsQ4TPQfXNEoGqZxNPV+EO7rZGg+Vv8Zb4KcvuH7lcEeLSfkHOX4Kj7WXI CPR0RJQp== ID Date Data Source [id number] 08/01/2020 03:29:00 PM EDT [facility] Name Value Range Interpretation Code Description Data Sumaya rce(s) Supporting Document(s) SARS-CoV-2, PCR Negative Negative Normal (applies to non-numeric results) [facility] The [place] FDA has made th is test available under anemergency access mechanism called an Emergency Use Authorization (EUA).The EUA is supported by the [place] of Health and HumanService's(HHS's) declaration that circumstances exist to justify the emergencyuse of in vitro diagnostics (IVDs) for the detection and/or diagnosis ofthe virus that causes COVID-19. First Test Unknown [facility] Employed in healthcare No [facility] Symptomatic as defined by CDC No [facility] Hospitalized Yes [facility] Resident in a congregate care setting No [facility] No [facility] The above 8 analytes were performed by [facility] [id number], ,[place] [address] ID Date Data Source [id number] 08/01/2020 12:09:53 PM EDT [facility] Name Value Range Interpretation Code Description Data Sumaya rce(s) Supporting Document(s) Progress Notes [facility] CHGBRt4nKuNOMjZp82/RKIjbVAQtk6QwLBdrSGb8ZEkjXCKbF4KzNWE7sB7jLPG6VZpEJiNlCwKjVHZy [facility] [file] ZeSkgwL3DpFOAdBFV1ByBlIZ9BZv8OMeH4YQU4aDXdLo4DRBWfDOQQIbSdKU3DAVx= ID Date Data Source [id number] 08/01/2020 11:00:[address] [facility] Name Value Range Interpretation Code Description Data Sumaya rce(s) Supporting Document(s) Progress Notes [facility] TNPLBw6dHiMYSaCm19/DONjmBCWzd2PbOCsuBOt0TVffADJtH4YnJFW1bK8jIMP0XHbDLtWlPsSyDUFq lbm [file] NqZP2AEy2FLlI7MEM9xNTiRr4LIgX4VGNQNmBnHH9IKWi= ID Date Data Source [id number] 08/01/2020 11:35:00 AM EDT [facility] Name Value Range Interpretation Code Description Data Sumaya rce(s) Supporting Document(s) Amylase 56 IU/L 25-115 Normal (applies to non-numeric resul ts) [facility] The above 1 analytes were performed by [facility] [id number], ,[place] [address] ID Date Data Source [id number] 08/01/2020 11:35:00 AM EDT [facility] Name Value Range Interpretation Code Description Data Sumaya rce(s) Supporting Document(s) Lipase 136 IU/L 73-393 Normal (applies to non-numeric resul ts) [facility] The above 1 analytes were performed by [facility] [id number], ,[place] [address] ID Date Data Source [id number] 08/01/2020 08:29:00 AM EDT [facility] Name Value Range Interpretation Code Description Data Sumaya rce(s) Supporting Document(s) Prolactin 5.1 ng/ml [facility] Prolactin Expected Ranges:Female:Non-pre gnant2.8 - 29.2ng/mL9.7 - 208.5ng/mLPost-menopausal1.8 - 20.3ng/mLThe above 1 analytes were performed by [facility] [id number], ,[place] [address] ID Date Data Source [id number] 08/01/2020 07:47:08 AM EDT [facility] Name Value Range Interpretation Code Description Data Sumaya rce(s) Supporting Document(s) Nursing Note [facility] DBWRKb8wAgYVGqMl62/NBTdmEDOpt6PoXXirTPb6AYikNEFoT7HuWSP1gJ2pXUV0CXfBYvIrQhUsKCFa lbm [file] g7QUJ2YHS6TSGbYgP0YfWgMZ6OSc3MYvY4BIN8xMOiLm1QKnXwAnAONiJgYD2FKOo= ID Date Data Source [id number] 08/01/2020 04:34:36 AM EDT [facility] Name Value Range Interpretation Code Description Data Sumaya rce(s) Supporting Document(s) Nursing Note [facility] XUYAZf5rYxJMTqGs55/SKXjkDYVli4VpCCcxNYf2JQswVPWtQ9GsDLB9mD1eUDM0UMzPCoXzGiQuPTFq lbm [file] AwMzUwNyAwMDAwMCBuDQowMDAwMDAzNjkyIDAwMDAw UB5QCfBtAJCnCLC1KIGlZJXrYGPzjp4TWYHoGPDxAGa9SNGlWKFoRHRqZOrdSUAvTYJ1TOXtKMOfKKWz UX8XBmQrATVkBKzvRpuxNRHiQLVvii4FRIHtEXJcSgC7WGEhIRIjCUWbPQiaDUNtNWW8IIR8KXHoFBLe JN3NJvTpVOBbYBnjLHKtQJSeZDQxqq3JDSJbEZYrYY Y0YZXmSDAkDNUyEHdkJTSfTUW5QuImDIZeQXJjDQ7KRtXmAVJfGUy6HAlaVLFlBZEdqj2ZQLOvMABeAJ A9NIThVKEyXIIkHEdgLLMiCJUoMUA1MAKhFFJwNH4BKsZlNHStMbW0KRJzKMVsYDKmqa4OWYAtGUAjDH SrZKDjXHUwSVSmCUzgLOEoVHJyDpG2LUDxRAYsNB3N TmXxGRnyYXQIJyp9OQmeA8f9QAQaYQ8TF7Olk6FgPtKpPOSTNAmaFM3uioRxGIOsFb2IV2jYTqsdCbxj RBU9AdN2IJw4KbV9ZborNfeoKFUxHCWmSSneFS1nITX0DJA5Ihn4VHd5TLiuVIavRHBcL5W6SDX3OCF9 V4PcJxOuMQ6RMv6FQyC4TAV3nMUsAb6IRoU5QZNAUfAtIO0PQNo= ID Date Data Source [id number] 08/01/2020 01:56:53 AM EDT [facility] Name Value Range Interpretation Code Description Data Sumaya rce(s) Supporting Document(s) Care Plan [facility] QYPMDy5kIkDMSoEj20/KDBrtESMbw6YkLMltJKx3KVsuSAWxT5KjGVR1qM9aXYO4GShUWoIyKmYrDRId lbm [file] MjMgMCBvYmoNCltdDQplbmRvYmoNCjIgMCBvYmoNCj y6ENeuVV1Jkm7mU1L6PAcyLZSDN2DptZIiAI5iY4EEF2muMJfzQz3JTzZiA6UpcfGjPTtaS9AhYUocQZ GWFQbpGXHyR4RtLLVyOAWgDc7IMREdNX3SOlIuNrSbVDNVAaXvOXPvMzLdGIdoFREGAEpxEANcA1N4KU IyIDAgUj4+YXazUJ6MC2KjQOP1SAv5FF1+HLhuRW4G jBDUE7JbjIPyODtrG3LCAM8MYKN1PD4UeAQxKP3WoZQHF1RyxJSfAt6wUDFee6OlDg3sT2UXHCJODHXq ZXtdKBqvXBYcALa5P9K2DFFsJ8NZX997qHJluDs2Eo8fN9TSOOqEUdVoRDktDTezRJHnHWk5X6E7YQOd W5ROM1GeBwCvqlNgY0C+HeHxCXNISS7REIQAGJq0G1 H1mFMhH1E9tUoGdPI0PA6FKP3OyXKqsXEti83+PtPBEbDgQ8FPE2LONH4TOLl7C3G4wQTnL3P5gScAzR T3VN8URN5ZpGuqdDLzOn8dEImwKQU+Ij3GGa8TCtRiHN8epy4GCmBdEKQhVmvGExd4P2vyxif8uYLfQh H6C4M3GrO2sRTkQM5OH7C5mIZsEED6ZRUlxXY+Pg0K x1CsIZAeTHx3I8onGWMxJHSbYoOazS30M++4lauqyPD3L5n9GENRzBHudTnDerXmJ8fXGED5n6O7WEn/ Lg2EPHL9xMy7bIVmGETiKRt4qB3wbZe2EyEePY07NPPlFJuyjY7zBoj7Z0Tqv0IuNw2cEw6zpLWmKm1W VmPxRGM6liXtLfUKSdW5jGkerfgmXKP0Q4v7fBK4Dp 04g4skejWux5WxXjQ7EYzcFDBeNbJdlcEjVXD2adOnrT6scnLpMv9QAZZaDFzyraKyNtTQNd9CTbZyTF 89XycldG7ibMS+DQogICAgICAgICAgICAgICAgICAgICAgICAgICAgICAgICAgICAgICAgICAgICAgIC AgICAgICAgICAgICAgICAgICAgICAgICAgICAgICAg ICAgICAgICAgICAgICAgICAgICAgDQogICAgICAgICAgICAgICAgICAgICAgICAgICAgICAgICAgICAg ICAgICAgICAgICAgICAgICAgICAgICAgICAgICAgICAgICAgICAgICAgICAgICAgICAgICAgICAgICAg ICAgDQogICAgICAgICAgICAgICAgICAgICAgICAgIC AgICAgICAgICAgICAgICAgICAgICAgICAgICAgICAgICAgICAgICAgICAgICAgICAgICAgICAgICAgIC AgICAgICAgICAgICAgDQogICAgICAgICAgICAgICAgICAgICAgICAgICAgICAgICAgICAgICAgICAgIC AgICAgICAgICAgICAgICAgICAgICAgICAgICAgICAg ICAgICAgICAgICAgICAgICAgICAgICAgDQogICAgICAgICAgICAgICAgICAgICAgICAgICAgICAgICAg ICAgICAgICAgICAgICAgICAgICAgICAgICAgICAgICAgICAgICAgICAgICAgICAgICAgICAgICAgICAg ICAgICAgDQogICAgICAgICAgICAgICAgICAgICAgIC AgICAgICAgICAgICAgICAgICAgICAgICAgICAgICAgICAgICAgICAgICAgICAgICAgICAgICAgICAgIC AgICAgICAgICAgICAgICAgDQogICAgICAgICAgICAgICAgICAgICAgICAgICAgICAgICAgICAgICAgIC AgICAgICAgICAgICAgICAgICAgICAgICAgICAgICAg ICAgICAgICAgICAgICAgICAgICAgICAgICAgDQogICAgICAgICAgICAgICAgICAgICAgICAgICAgICAg ICAgICAgICAgICAgICAgICAgICAgICAgICAgICAgICAgICAgICAgICAgICAgICAgICAgICAgICAgICAg ICAgICAgICAgDQogICAgICAgICAgICAgICAgICAgIC AgICAgICAgICAgICAgICAgICAgICAgICAgICAgICAgICAgICAgICAgICAgICAgICAgICAgICAgICAgIC AgICAgICAgICAgICAgICAgICAgDQogICAgICAgICAgICAgICAgICAgICAgICAgICAgICAgICAgICAgIC AgICAgICAgICAgICAgICAgICAgICAgICAgICAgICAg UDHmOUYjPUIeIVRkSIHaQPUmVJXcPTUdFBYpQYToKWe7N8xkBQVdWHRzIJ6aBPs8Pi2+DQoNCmVuZHN0 lmNrlD2RXE4gk5DdDIqpSGKcm1IcSKh8WB2EDJWzSHyrQO9UEPbjrt8TGJBsSJQgdRWKv0yjFqIaTJP2 KNDxYjymMO5DCLVmR3dcosDbMWTvWTUZUU7TFsIdX2 CyqZ99UYOBZx5+TMeuquWuGoiSMiR2VVImh3YyDKq1KE0RYRCxGtpwx3EsAfUlCKXKMSblEL9ITYH9MZ D6OAQuCu2WXNVvU481cuKdWE3WIa3TYrGsWV5lgi0RBhWbTFQoIbuYGcf2APfqMG2KhPUjKZpOQNHuNT ElMI3rVyykJ4ZsG4X2OJcfgnZoHT5MFCVzTOLSQrGh gBEeAU6yXs6qEJAhMRStPuS7SSFSQP9IXPAeUUVjhLIcLMUqWPZAMW0XCRzcZLK8KulqzzOtqREyOKra JU3YAQBeysYsFqPyBUAYGYk+Ef7RRS8bk8HnWAlbIgBxNW9hbe2ISPmZFmWcT5N4tCCuS7I5RHyxNp1A HTObAFLbDeBeDUGCGCyyUI4JVN2sqxR8TJ3JkQKdXP JfXIBfcRHsQSn6Z42xvMSzDEshMN7UJQJ+Savannah+Ui0PSYPsGLJkNLRwZgXrSSSCWkIoN0AfY1MPc5MdC9 WnCN94nCvaxiHsRTsfIX3URP4sINHkZWOYXH1EeBVaaW1ocjDfABXaYFCRBeHkD56ltOXnOONoQNW5YR RjDd2DJTSmM2NgqlHgiTljwtGwHUXqIXFDFW3UJUeg zvDfpTYzxZefXD72hIyjWU9EVv4BFnVoDW4pne3KvWTrCq6RRDLeRR0TRGIkEWDaTYPfFYA0NHVzVyGf BHjlVBSwZWNhLQN3CHIcKMSiFB7BFaQgAWOqLpB8SUBbSAHqAVMmpb1SNGTcNFWeQdI7KlRuVYTxIAZm PSmaUUCjHFEvCRC0PNJpLEXgNG1HNjViACHyFGB4WQ YkPOBjUXSaaf1ZJYJuASIeJrE4LjXpINFcJUXmWJbiCKSmWAHwEIY2SCEnRGBwAX6EJqFoKBFsVVNfQQ YkZROsOTOhdp9AXTCkASSlBoYuNUGxNFFaSYZaYAetJGOqYZG1IMJ4NBIdZEMePU8VKxSnJGCeWUA0NT QlYOEhHRZmkh7IOGJsYYFwBFtlHFNzNELhSBDoJVow YLHgEZQ3KEs8XSPuJUDlAE2TAuElSZLkJOp8UBGjRKQlDXErxf9KGEKzIICuIishMoLnCBXsRZLsDFch YUNkRYU7TXIdBLNhKGSyBT3XZyIsDDUjOSgaZOowXRAmAPEioc0MFHWaQWAxXWA0QDXgMQArIIUiFHea LSDsEUP0BvX9SDTaSHPjPC1FIqNcRAObTCj5DaOhPF ZpLCWkdg9THBShLCNjDZY9HgAjKZUyEMDnWCoiMUXjARBpZNQuRBHgYSDlPW6DTpRzYRPlXcI9RuMkDS CmAZVmcm0ECZZuFMDtABG5XqOzPBDuTQYxVNcqEDNyQOKcLZz2YYNeGKPmGH2DEoEzFBFmCqI4SyMzFP UoHWItnt4KSQSzXJRiVrusRWMqOATqIECfMSf4mmKv vZSrIZv1EX5AL9QanmZiWliWWq8Ep188WTI9KUDmPv8LO0rtTx9bWOXfXFGCGm4MVEo4YgayPOJgMyD1 NFO6NmEnIVHxXRPaKVjeQXVqZHU1LVO+PJjkJVC0KQBsNBJ6Ihg0KMHdBCQ2Z5NzYWV9EPXkOgyeWv7m XSANCj4+KUrnrYUuqCkvBZCXKrQqPRM4QMudSSVSQc4F ID Date Data Source [id number] 07/31/2020 11:12:00 PM EDT [facility] Name Value Range Interpretation Code Description Data Sumaya rce(s) Supporting Document(s) Blood Urea Nitrogen 10 mg/dl 7-18 Normal (applies to non-nume zaina results) [facility] Creatinine 0.58 mg/dl 0.51-0.95 Normal (applies to non-numeric resul ts) [facility] N-Acetylcysteine (NAC) and Metamizole lemus ve the potential to falselydepress Creatinine results. Baseline values before medication adminstration are recommended. Patients undergoing treatment with phenindione will have falselydepressed results. Patients on phenindione therapy should be tested with an alternativeCREA method.Toxic levels of acetaminophen may lead to falsely depressed results forpatient samples. Glomerular Filtration Rate >90.00 mL/min/1.73m2 [facility] GFR Reference Ranges:Normal Function or Mild [...] of Health and the National KidneyFoundation. The Castor method used in calculating this result is traceable to [employer] standards. Glucose 129 mg/dl 70-110 Above high normal [facility] Sulfasalazine has the potential to false ly depress Glucose results. Sulfapyridine has the potential to falsely elevate Glucose results. Baseline values before medication administration are recommended. Calcium 8.6 mg/dl 8.5-10.1 Normal (applies to non-numeric resul ts) [facility] Sodium 140 mEq/L 136-145 Normal (applies to non-numeric resul ts) [facility] Potassium 3.9 mEq/L 3.5-5.1 Normal (applies to non-numeric resul ts) [facility] Chloride 108.0 mEq/L 98.0-107.0 Above high normal [facility] Anion Gap 8.9 [facility] Carbon Dioxide 27.0 mMol/L 21.0-32.0 Normal (applies to non-numeric results) [facility] The above 10 analytes were performed by [facility]'s [place] [id number], ,[place] [address] ID Date Data Source [id number] 07/31/2020 10:55:00 PM EDT [facility] Name Value Range Interpretation Code Description Data Sumaya rce(s) Supporting Document(s) WBC 6.08 x1000/ul 4.80-10.00 Normal (applies to non-numeric re sults) [facility] RBC 3.67 x1Mil/ul 4.20-5.40 Below low normal [facility] Hemoglobin 8.8 g/dl 12.0-16.0 Below low normal [facility] Hematocrit 30.7 % 37.0-47.0 Below low normal [facility] MCV 83.7 fL 81.0-99.0 Normal (applies to non-numeric resul ts) [facility] MCH 24.0 pg 27.0-31.0 Below low normal [facility] MCHC 28.7 g/dl 32.2-37.0 Below low normal [facility] RDW 17.6 % 11.5-14.5 Above high normal [facility] Platelet Count 466 x1000/ul 130-400 Above high normal [facility] MPV 9.5 fL 9.4-12.4 Normal (applies to non-numeric resul ts) [facility] Neutrophils 64.4 % 40.0-74.0 Normal (applies to non-numeric resu lts) [facility] Lymphocytes 25.0 % 19.0-48.0 Normal (applies to non-numeric resu lts) [facility] Monocytes 7.6 % 3.4-9.0 Normal (applies to non-numeric resul ts) [facility] Eosinophils 1.5 % 0.0-7.0 Normal (applies to non-numeric resu lts) [facility] Basophils 1.0 % 0.0-2.0 Normal (applies to non-numeric resul ts) [facility] Immature Granulocytes 0.5 % 0.0-0.5 Normal (applies to non-nu meric results) [facility] Nucleated RBCs 0.00 % 0.00-0.20 Normal (applies to non-numeric r esults) [facility] Abs. Neutrophils 3.92 x1000/ul 1.92-8.31 Normal (applies to non-numeric results) [facility] Abs. Lymphocyte 1.52 x1000/ul 1.20-3.70 Normal (applies to non-n umeric results) [facility] Abs. Monocytes 0.46 x1000/ul 0.14-0.97 Normal (applies to non-nu meric results) [facility] Abs. Eosinophils 0.09 x1000/ul 0.00-0.76 Normal (applie s to non-numeric results) [facility] Abs. Basophils 0.06 x1000/ul 0.00-0.22 Normal (applies to non-n umeric results) [facility] Abs. Immature Gran. 0.03 x1000/ul 0.00-0.02 Above high normal [facility] Abs. Nucleated RBCs 0.00 x1000/ul 0.00-0.02 Normal (appl ies to non-numeric results) [facility] The above 24 analytes were performed by [facility]'s [id number], ,[place] [address] ID Date Data Source [id number] 07/31/2020 06:26:16 PM EDT [facility] Name Value Range Interpretation Code Description Data Sumaya rce(s) Supporting Document(s) Nursing Note [facility] HZEECt7oRdLVOiYc97/XRQtnMNJoh3XnIHggZLb0OXxgYAQqH8FbWOB9vT6lJFR5YLeYGyZqDaUwGXKo lbm [file] AgICAgICAgICAgICAgICAgICAgICAgICAgICAgICAgICAgICAgICAgICAgICAgICAgICAgICAgICAgIC AgICAgICAgICAgICAgICAgICAgICAgICAgICAgICAgDQogICAgICAgICAgICAgICAgICAgICAgICAgIC AgICAgICAgICAgICAgICAgICAgICAgICAgICAgICAg ICAgICAgICAgICAgICAgICAgICAgICAgICAgICAgICAgICAgICAgICAgDQogICAgICAgICAgICAgICAg ICAgICAgICAgICAgICAgICAgICAgICAgICAgICAgICAgICAgICAgICAgICAgICAgICAgICAgICAgICAg ICAgICAgICAgICAgICAgICAgICAgICAgDQogICAgIC AgICAgICAgICAgICAgICAgICAgICAgICAgICAgICAgICAgICAgICAgICAgICAgICAgICAgICAgICAgIC AgICAgICAgICAgICAgICAgICAgICAgICAgICAgICAgICAgDQogICAgICAgICAgICAgICAgICAgICAgIC AgICAgICAgICAgICAgICAgICAgICAgICAgICAgICAg ICAgICAgICAgICAgICAgICAgICAgICAgICAgICAgICAgICAgICAgICAgICAgDQogICAgICAgICAgICAg ICAgICAgICAgICAgICAgICAgICAgICAgICAgICAgICAgICAgICAgICAgICAgICAgICAgICAgICAgICAg ICAgICAgICAgICAgICAgICAgICAgICAgICAgDQogIC AgICAgICAgICAgICAgICAgICAgICAgICAgICAgICAgICAgICAgICAgICAgICAgICAgICAgICAgICAgIC AgICAgICAgICAgICAgICAgICAgICAgICAgICAgICAgICAgICAgDQogICAgICAgICAgICAgICAgICAgIC AgICAgICAgICAgICAgICAgICAgICAgICAgICAgICAg ICAgICAgICAgICAgICAgICAgICAgICAgICAgICAgICAgICAgICAgICAgICAgICAgDQogICAgICAgICAg ICAgICAgICAgICAgICAgICAgICAgICAgICAgICAgICAgICAgICAgICAgICAgICAgICAgICAgICAgICAg ICAgICAgICAgICAgICAgICAgICAgICAgICAgICAgDQ ogICAgICAgICAgICAgICAgICAgICAgICAgICAgICAgICAgICAgICAgICAgICAgICAgICAgICAgICAgIC MjEBVkJJLfSKVaTWZuIZRyTCCbBEZoBAWtRZUlFKHxQIGpAWKdPSGaJFy1N6dyXOIeWVGsOZ1hSYe6Nr 8+IGdXAbRhOEJ3ugWhjY8XLI1sh6MaJCijNEGul7Kk NEb8DP5EMXUuCYkvKB6ONNjrun5CCCScOODhlKHVl8prVfRpMED8RVZcIxbgKV4AWSSeA7ddkyMyECXr OHJZWE7LFsDdA5MazV81EXOUOh1+WKppqlOwHfbOCmXyICAml3PiBSh5GU5HEFVwXpoxh0EmYlXiCKLU TCntIV4HKSW2PPBzXXIqAj8XFNNxA975qeOgLN8PDj 7GMyFiKY2wri2CIvZaTLDvWrgRCpk3JWsaLD4RoNQwWXdDjUXshV1dFA8dzXBcZesuZPnkaaXlVUpeh0 I9qINfQBXEOkQpnCIfRR9eRB6hKSQtMOJ1RaM3KPBBQI3WVUMcMAFkyJGxYUPoGUJIMV6QADhsPCW2Ay phflRkrKGcXDqxGY7HPCFhvwEiCwFiJONXGMe+Pg0K EL2bh2QgKXmbCBFuEV3fwz2UJYcCYiHeJ8Q6lRZwI8A6UGxaAz2VGYEsFUAvVgSwCHFRUOcqXM5XVP8h rbH0LH5CnIEkOJNnRLKhuEXnWFd6Z58fzKVwPQzhIT7HQVW+Savannah+Cd6JVFXhVEZbHGBdJjQlVHAZQsTm F0DbX2FRs6VgY7MjIG09bPfjerGhSSomTD6ILJ5wFH JqBAOHKB8FqHYqxK9ovnAuDqHlYVFHYuYgF68cuDStMZLiTIJeQMExWa8JFAPcW1SocmWzhGmfdlEkAY NoPDJPUY1JIFlxhdIjaBCfnZthDT27hVtuOS9ZXe6ARcUzGM2qwp9FkIDiAn0QWPYsCH1GNGEeMPSuJB EmSTJ1ZKFmQxRxQHcqVDGoJYEqHFU3HFApDLMyXQ2O FlGnYWQtHXm8GjZyIBLrNOJhtr1UCLMvWETpPYR1FvNnVRTkEGDjLUleROLsLEXbXMD6SOAdFJLyMY9J NbLdWYPrCJZeHIEcHXYhNQKvhu8DOTGfVBAnBTD0MYSuXPNiAGSlXKeqCMJdQVCuEQK7DENoJGLuEM6N OkTxVEMtUSD2VHwrYAFzVSMkmx1WOZDlMNXtCbq2Yd AvCGEuGDTsRQhgAMHxAWZlPHLiPNCgTJJoMS1NJzBoFTOcFVOfFByrREVoJYTykj9IATJkUWBmAYN6RN NnHUYySVEsDCtwPKAxTKY6FeMaZFDiDEHfSU8NVdEfXEBiGPT8SRAfHCUiHQVlhu7KTLSiIBJvGcY8BY SsUMRqMUBzIEuvGUKjECJ1Sru0ZIWaEWYlJR9IToRx UEMqCDb2YWZeIELiGSTkny4CUEKvCFZjGCB4VvWoNSXpNCEnVJeiJGVhWFA8YhJ8QIXhINPrUV6FAfRt KSEfGUw3WCRbCLUtAPVtjz2DVIGvKARdKHM2TzBrBVHmCZEqBUkyNDKwOSSoAon3SSSsPUZbDF8DPmMr XYVdGsQ1AyAqUMVpHMAkeg6IVGSnNUUaMMxvVBWaMD NbFXVmBHx0qeAymKBgYOw9HM7WJ5CxnzGjPeVHSf0Na922PUQ3ILLiRf0KI9ucVp7xJWAwXLQIUt3OUX c3J6YlAeI6FqL2NNBcAaDwOEW5TKZ7YjTcDfJeBNBoIKN+YVvnYYAvLKYfFUD0MCVbUyVyKKn2NLqeXG TtBGNxPDGyDE0mUGBFLl8+FKpemBQotDasFENJMgCrFGO8GKxzLIFADq6L ID Date Data Source [id number] 07/31/2020 06:17:40 PM EDT [facility] Name Value Range Interpretation Code Description Data Sumaya rce(s) Supporting Document(s) Care Plan [facility] SGMKDo4nXlJTQkDw94/WWSvvXYUeb3IqTXksTOn3NNlfWLXoZ1YcTRC8mV9uWOG5VRtFVnAqMdRlWVPe lbm [file] VnGgJrARVfZDHrTkPlIAC5VKU+CC4aBBf+Ba5Ci0DikkX9nlTiUScwFwGmXF1GYINUC0ANCt== ID Date Data Source [id number] 07/31/2020 05:39:58 PM EDT [facility] Name Value Range Interpretation Code Description Data Sumaya rce(s) Supporting Document(s) H&P [facility] RXYHAh0gJbZHQvAw51/QHHitAMLxb5KjPZfmOSw0XZaeKGHqJ1LeXVM1pC0vOSD8IJaVGuJzIlYyFKTe lbm [file] AgICAgICAgICAgICAgICAgICAgICAgICAgICAgICAgICAgICAgICAgICAgICAgICAgICAgICAgICAgIC AgICAgICAgICAgICANCiAgICAgICAgICAgICAgICAgICAgICAgICAgICAgICAgICAgICAgICAgICAgIC AgICAgICAgICAgICAgICAgICAgICAgICAgICAgICAg ICAgICAgICAgICAgICAgICAgICAgICANCiAgICAgICAgICAgICAgICAgICAgICAgICAgICAgICAgICAg ICAgICAgICAgICAgICAgICAgICAgICAgICAgICAgICAgICAgICAgICAgICAgICAgICAgICAgICAgICAg ICAgICANCiAgICAgICAgICAgICAgICAgICAgICAgIC AgICAgICAgICAgICAgICAgICAgICAgICAgICAgICAgICAgICAgICAgICAgICAgICAgICAgICAgICAgIC AgICAgICAgICAgICAgICANCiAgICAgICAgICAgICAgICAgICAgICAgICAgICAgICAgICAgICAgICAgIC AgICAgICAgICAgICAgICAgICAgICAgICAgICAgICAg ICAgICAgICAgICAgICAgICAgICAgICAgICANCiAgICAgICAgICAgICAgICAgICAgICAgICAgICAgICAg ICAgICAgICAgICAgICAgICAgICAgICAgICAgICAgICAgICAgICAgICAgICAgICAgICAgICAgICAgICAg ICAgICAgICANCiAgICAgICAgICAgICAgICAgICAgIC AgICAgICAgICAgICAgICAgICAgICAgICAgICAgICAgICAgICAgICAgICAgICAgICAgICAgICAgICAgIC AgICAgICAgICAgICAgICAgICANCiAgICAgICAgICAgICAgICAgICAgICAgICAgICAgICAgICAgICAgIC AgICAgICAgICAgICAgICAgICAgICAgICAgICAgICAg ICAgICAgICAgICAgICAgICAgICAgICAgICAgICANCiAgICAgICAgICAgICAgICAgICAgICAgICAgICAg ICAgICAgICAgICAgICAgICAgICAgICAgICAgICAgICAgICAgICAgICAgICAgICAgICAgICAgICAgICAg ICAgICAgICAgICANCiAgICAgICAgICAgICAgICAgIC AgICAgICAgICAgICAgICAgICAgICAgICAgICAgICAgICAgICAgICAgICAgICAgICAgICAgICAgICAgIC AgICAgICAgICAgICAgICAgICAgICANCjw/rSPjI4sfzCJxlvO9P4laUv6VOn8PAE7mg2NlHRQiWUqboh EoOctNMtTiBOPoGuoAZgg0WWgsHA9MkDOrN0NwT9Vh CLrdMK4FSXCzYYFusXIoRUXxHBHrAgM3WPFuMYotCB3MnSDfMJniTLZcEOKtFnWtGHPbAITzUZImJKJn PEUFCI2ALdHiC3HrfS34NCYYMs9+JQbubeYiIxpVPfT3QHPef8TuUSb7XQ4OUATsMkmpd8VyCwmjZTFE DGurHE5KLHC8FBQ1YKIeWp6LMOLmC298xtIjCP1KIk 6BFyUzTB7iki2RSbmzOMHhJrhWYie3NKomQX8UmIXaIZcYCvGaVbiuRWIzxAOdRRndbNV3YFYNWNZnuC JjCG9mZT8tDSRsMGIgVdO5JVEMSY8QPVYmTODfbXXmGAAvOLRPEM0GDJqmNZU4UvgjimAifHAkLEdiGS 9QYXJlbnQgMjYgMCBSDQo+Cx2VVM7np2TqOSdgMHSi MH5baz2JFUsEMwMzU3B2cBBvB1D2PWgcNs9SDAPvHMIcOiFxLODPQJwmFD3UVQ0rvoQ6WQ2RgWBkNFQs KYSzrNDvBSz9J57imGAbIUhhAZ3RKHM+Savannah+Kz6MKQNbZSUkZDCmEhQsTRTNFuZhK0JwU8AAv0RbM6Ue HJ91eNzdcyEwUByaEP8HXE5cWUXgSZGULV7NwDTdpU 9dlhNgSjOuULSRTrZyA74kcLYnZJAvXDA1NBJoJq0PUMBwN6CfyvOjxAntueNlHUZgEEUSAJ8NNRpiji RgxVIymIejMB68aMibTH4JYc1PHnCdHD9omt0UnBHtPc1FIQMvQT5TSJBuZXMdNPMsITJ3QJSgRoRiIQ rtERXoHQCzKEW7RMXwURNxTS6PEmXwNYIrTPC4HZOx COLwFIZywu5CVFWyEQVvXCC9RgNhKNLgXDLyDSbuJLHeZEBcLYK7HLFnGNOqQJ3GEsLzVOUrFGI1PIPy FWWsDDPqwg6RAGBkFMWyKHR8NHVoLVHqTRMtPYmgUWFeCJM1JGc0TOYkBYToXZ8ZXsRoVRIqLWwtJCew QHPmKLAica4DCWOlSQRqMCV7KPZiTZYvTKHsKRcjPP HtUWV8JZn8NCDwPYSwQD1LGnVgLXDsXBAqPNWtADMfOFAmqs1JPNUgWFBhPRX4DtTqFZSwMDVqHQjeCE CrCDSbWpQ4MFYjFJJsOZ5DSlSlWCLzBEC0ASirBOQxORXqid8WNNUgSJJjCoLqFgGxOOGxIIPcRYatNB HhDPKrEVh7HSLxGRTqTE6YSlVkUIPcPZV9ETXuCUWu MDFjes4LTFLdEHCeYzv4RuVdYUEsHYFdPYqaVDMpJPJ3GFA9DTDyRLBsYL8UZxGeRCVxKXZcYSNaFURl ICJpjr5QRQIgDYZlWDEgEdYoFAWpJZMnDJxwWMRuSWA3UpdrBGNwKLBbPX8TYkIxLTBmJWY9YPSzAMKf JESqoh7IZKPoLYApLlB2TpLcQOApQZJsYUspZBWjZN L6ZVR2MRFuCQVgUV6XDbUcCPBcDXq9HtDuVTIqVGSaew1DMHXtXGWdTFX3HRGrIOMgKXPlCEeaJVLbJY D6ZqhhBJOhAHNjKR7TMkLiQRjdJPATVit8YKdiZ6x1BPPuEB6NV1Gvv2DxLkdoUXYGNObzZC6greNjNZ CyBl7VR5sALgceEQS7IOHxYRSlIHK3N4EnODsaGdZ0 HOSiUFGmQxBvHK0uPPWdIBNsGyZbEVRdWOAaRVQgQYHhIUJoILM9QCS8UOR4FdCuEO7JIo6PCsF0ZIH1 hXFaDa8ZBXazWmKDWaHmVD2CMRi= ID Date Data Source [id number] 07/30/2020 03:19:00 PM EDT [facility] 1 OrderSheet [facility] [address] [place] [address] Phone #: ext- [phone] 07/30/2020 15:09 Patient: LELAND DIAZ Sex: F : 1980 Age: 40yWEIGHT:68.0 kg (S) HEIGHT:67 inches (S) BMI:23.5ALLERGIES: Levaquin, NSAID, Sulfa AntibioticsCHIEF COMPLAINT: abdominal pain, vomiting, nauseaDIAGNOSIS: Abdominal pain, Gastroparesis syndromeLAB ORDERSOrder Description Priority Entered Acknowledged InitialedBlood Culture STAT 15:35 07/30/2020 15:47 Landon,q10m X2 (Sched Mikey Castrejon R.NCarmelo15:35 07/30/2020) PA;Blood Culture STAT 15:35 07/30/2020 15:47 Landon,q10m X2 (Sched Mikey Castrejon R.NCarmelo15:45 07/30/2020) PA;CBC w Diff STAT 15:35 07/30/2020 15:47 Mikey Navarrete.NCarmelo PA;CMP STAT 15:35 07/30/2020 15:47 Mikey Navarrete.N. PA;Lactic Acid STAT 15:35 07/30/2020 15:47 Mikey Navarrete.NCarmelo PA;Lipase STAT 15:35 07/30/2020 15:47 Mikey Navarrete R.N. PA;Magnesium STAT 15:35 07/30/2020 15:47 Mikey Navarrete R.N. PA;Phosphorus STAT 15:35 07/30/2020 15:47 Mikey Navarrete R.N. PA;PT/PTT STAT 15:35 07/30/2020 15:47 Mikey Navarrete R.N. PA;Urinalysis (Clean STAT 15:35 07/30/2020 Ack'd: 15:47 Lucía Navarrete.EnochCatch) Mikey Oswald Cancelled: Unable to Collect 19:32 Zenaida PA; Gilson RN 2 OrderSheet [facility] [address] [place] [address] Phone #: ext- [phone] 07/30/2020 15:09 Patient: LELAND DIAZ Sex: F : 1980 Age: 40yDIAGNOSTIC STUDY ORDERSOrder Description Priority Entered Acknowledged InitialedCT Abd PEL W/ IV STAT 15:35 07/30/2020 15:47 [place],Contrast Only Mikey Castrejon R.N.(Oxygen?(No)) PA;(IV?(Yes)) Reason for Study: Abdominal PainMEDICATION/IV/DRIP/FLUID ORDERSOrder Description Priority Entered Acknowledged InitialedIV NS : Bolus 1000 15:35 07/30/2020 16:05 DorismL, then 150 mL/hr Mikey Riggins RN PA;Promethazine IV 15:35 07/30/2020 16:07 [id number] in 50mL NS, Mikey Riggins RNgive wide open: 25 PA;mg (NOW x1, HIGHALERTMEDICATION)Dilaudid 1 mg IVP, 15:35 07/30/2020 16:08 Dorismay repeat q30min Mikey Riggins RNX 3 PRN Pain: 1 mg PA;(NOW x1, mayrepeat [id number] 3 PRN Pain, keepo2 sat > 90%, [...] Zenaida Riggins RN (19:32 07/30/2020)] 3 OrderSheet [facility] [address] [place] [address] Phone #: ext- [phone] 07/30/2020 15:09 Patient: LELAND DIAZ Sex: F : 1980 Age: 40y[Electronically signed by Mikey Oswald (17:29 07/31/2020)][Electronically locked by Zenaida Riggins RN (19:32 07/30/2020)] Name Value Range Interpretation Code Description Data Sumaya rce(s) Supporting Document(s) ID Date Data Source [id number] 07/30/2020 03:19:00 PM EDT [facility] 1 Medication Reconciliation Report [facility] [address] [place] [address] Phone #: ext- [phone] 07/30/2020 15:09 Patient: LELAND DIAZ Sex: F : 1980 Age: 40yWeight: 68.0 kgHeight/Length: 67 in.BMI: 23.5ALLERGIES: Levaquin, NSAID, Sulfa AntibioticsThe patient's Home Medications are listed below:CONTINUE TAKING THE FOLLOWING MEDICATIONS: Ambien Oral 7.5, daily, via J tube, prn,at bedtime Benadryl IV 50mg QDAY for nausea, 2x a day Carafate Oral 1 gm, q4h, via J tube Creon Oral (5937-1872 unit) 1 capsule, 4x a day, J [...] 07/30/2020 4:00:00 PM 2 Medication Reconciliation Report [facility] [address] [place] [address] Phone #: ext- [phone] 07/30/2020 15:09 Patient: LELAND DIAZ Sex: F : 1980 Age: 40yDilaudid [...] rce(s) Supporting Document(s) ID Date Data Source [id number] 07/30/2020 03:19:00 PM EDT [facility] 1 Medication Administration Record [facility] [address] [place] [address] Phone #: ext- [phone] 07/30/2020 15:09 Patient: LELAND DIAZ Sex: F : 1980 Age: 40yWeight: 68.0 kgHeight/Length: 67 inBMI: 23.5ALLERGIES: Levaquin, NSAID, Sulfa Antibiotics Date/Time Medication Administered Medication OrderedStart IV NS IV NS : Bolus 1000 mL, then 92166:00 07/30/2020 Dose: IV Fluids mL/hrZenaida Riggins RN Rate: 1000 mL/hr over 30 minute(s)---- Bolus: 1000 mL over 30 minute(s)Stop Dispensed: 1000 mL bag18:51 07/30/2020 Site: #2 left forearmMAGGI [place] PROMETHAZINE [IVPB] Promethazine IV 25mg in 50mL16:00 07/30/2020 Dose: 25 mg IVPB NS, give wide open: 25 mg (Maricruz Riggins RN Rate: 200 mL/hr over 15 minute(s) x1, HIGH ALERT MEDICATION)---- Dispensed: 50 mL bagStop Site: #2 left :15 07/30/2020Zenaida Riggins RNGiven DILAUDID [IVP] (HYDROMORPHONE Dilaudid 1 mg IVP, may gsukou90:03 07/30/2020 HCL) q30min X 3 PRN Pain: 1 mg (Maricruz Riggins RN Dose: 1 mg IVP x1, may repeat [id number] X 3 In: NS 10 mL PRN Pain, keep o2 sat > 90%, Site: #2 left forearm HIGH ALERT MEDICATION)Given DILAUDID [IVP] (HYDROMORPHONE Dilaudid 1 mg IVP, may :44 07/30/2020 HCL) q30min X 3 PRN Pain: 1 mg (Maricruz Riggins RN Dose: 1 mg IVP x1, may repeat [id number] X 3 In: NS 10 mL PRN [...] rce(s) Supporting Document(s) ID Date Data Source [id number] 07/30/2020 03:19:00 PM EDT [facility] 1 General Instructions [facility] [address] [place] [address] Phone #: ext- [phone] 07/30/2020 15:09 Patient: LELAND DIAZ Sex: F : 1980 Age: 40yChronic generalized [...] of Abdominal Pain (Female) 2 General Instructions [facility] [address] [place] [address] Phone #: ext- [phone] 07/30/2020 15:09 Patient: LELAND DIAZ [facility]#: [id number] Sex: F : 1980 Age: 40yThe exact [...] for taking these medicines. 3 General Instructions [facility] [address] [place] [address] Phone #: ext- [phone] 07/30/2020 15:09 Patient: LELAND DIAZ Sex: F : 1980 Age: 40yGeneral [...] begin to improve in thenext 24 hours.Call [phone] if any of these occur: Trouble breathing Confusion Fainting or loss of consciousness Rapid heart rate 4 General Instructions [facility] [address] [place] [address] Phone #: ext- [phone] 07/30/2020 15:09 Patient: LELAND DIAZ Sex: F : 1980 Age: 40y SeizureWhen to seek medical adviceCall your [facility] healthcare provider right away if any of [...] or water and you are getting dehydrated [id number] [employer]. [address] [place] [address]. All rights reserved. This information is not intended as asubstitute for professional medical care. Always follow your healthcare professional's instructions. You have been given the following additional information: Abdominal Pain, Unknown Cause, (Female)(Electronically signed by TROY Rosa 07/31/2020 17:29) Name Value Range Interpretation Code Description Data Sumaya rce(s) Supporting Document(s) ID Date Data Source [id number] 07/30/2020 03:19:00 PM EDT [facility] 1 Clinical Report - Nurses [facility] [address] [place] [address] Phone #: ext- [phone] 07/30/2020 15:09 Patient: LELAND DIAZ Sex: F : 1980 Age: 40yTRIAGEArrived by private vehicle. Historian: patient.Acuity: LEVEL 3.Chief Complaint: ABDOMINAL PAIN, NAUSEA and VOMITING.This started last night. ( Pt states she has a history of gastro paresis and started again last night withabdominal pain along with nausea and vomiting, no relief yet today).Treatment [employer]:None.SEPSIS SCREEN: SIRS Screen negative: heart rate greater [...] tube. Creon Oral (Capsule Delayed Release Particles [id number] unit) 1 capsule, 4x a day, J [...] needed. --15:07/30/20 Zenaida Riggins RN.Allergi esLevaquin.(hives)NSAID.Sulfa Antibiotics.(Anaphylaxis) --15:21 07/30/20 Zenaida Riggins RN. 2 Clinical Report - Nurses [facility] [address] [place] [address] Phone #: ext- [phone] 07/30/2020 15:09 Patient: LELAND DIAZ Sex: F : 1980 Age: 40yPROBLEMS:Pulmonary Embolism.Anemia.Status Epilepticus. --15:24 07/30/20 Zenaida Riggins RNThe following entry was modified by Zenaida Riggins RN, 15:07/30/20Malabsorption syndrome. --15:07/30/20 Zenaida Riggins RNThe following entry was modified by Zenaida Riggins RN, 15:24 07/30/20 Reason - duplicateGastroparesis. --16:22 06/03/20 Zenaida Riggins RN.ADDITIONAL SURGERIES:Bowel resection.Bowel Resection [2016].Cholecystectomy.Gastric bypass.Gastric bypass reversal [08/2019].Gastric Resection [2009].GI bleed clipping.Hysterectomy.J-Tube placement.Lifeport [10/2017].Portacath left chest.Nadege-en-Y gastrojejunostomy [2010].Spinal fusion.Spinal fusion. --15:24 07/30/20 Zenaida Riggins RN.HistoryPAST [...] no deficiencies. 3 Clinical Report - Nurses [facility] [address] [place] [address] Phone #: ext- [phone] 07/30/2020 15:09 [id number] Sex: F : 1980 Age: 40y FUNCTIONAL ASSESSMENT: Functional assessment: no impairments noted. LEARNING NEEDS ASSESSMENT: The learning needs assessment revealed no barriers. FALL RISK ASSESSMENT: Fall risk assessment completed. No risk factors identified. SKIN INTEGRITY ASSESSMENT: Skin integrity risk assessment completed. No skin integrity risk identified. --15:14 07/30/20 Jeff Metcalf RN.PHYSICAL [id number] 07/30/20. To room via wheelchair.GENERAL / NEURO [...] with 10 mL heparin. --15:35 07/30/20 Lucía Navarrete, R.NCarmelo 15:30 07/30/20. ( Lying on left side, [...] with 10 mL saline. --15:47 07/30/20 Lucía Navarrete, R.N. 16:00 07/30/2020 Started bag #1 1000 [...] site checked: 4 Clinical Report - Nurses [facility] Emergency Department [address] [place] [address] Phone #: ext- [phone] 07/30/2020 15:09 Patient: LELAND DIAZ Sex: F : 1980 Age: 40yno [...] sedative warning. Verbalizes understanding. --16:08 07/30/20 Zenaida Riggins RN16:05 07/30/20. Re assessment after medication administered. Pain still present. Reassessment afterfluids administered. She has had no adverse reaction.GENERAL / NEURO / PSYCH: Appears in pain and anxious.GI / : The patient reports nausea. The patient reports vomiting. She reports abdominal pain located inthe left side of the abdomen. --16:30 07/30/20 Zenaida Riggins RN16:15 07/30/2020 Promethazine IVPB via IV site #2 Discontinued: completed. Total amount infused: 50mL. IV patency established. IV site checked: no pain, redness, or swelling. IV flushed thoroughly. --16: Zenaida Riggins RN16:25 07/30/20. Patient transported to CT by wheelchair with technician's helper. --16:31 07/30/20 STACIE Frye16:39 07/30/20. Patient returned from radiology and CT by wheelchair with technician's helper. --16: Zenaida Riggins RN16:43 07/30/20. Reassessment after medication administered and fluids administered. She has had noadverse reaction.GI / : The patient reports abdominal pain located in the left side of the abdomen is still present andworsening and currently severe and associated with nausea and vomiting. --16:50 07/30/20 STACIE Frye16:44 07/30/2020 Dilaudid (HYDROmorphone HCl) IVP 1 mg [...] fluids administered. 5 Clinical Report - Nurses [facility] Emergency Department [address] [place] [address] Phone #: ext- [phone] 07/30/2020 15:09 Patient: LELAND DIAZ [facility]#: [id number] Sex: F : 1980 Age: 40yThe patient [...] thoroughly. --18:51 6 Clinical Report - Nurses [facility] Emergency Department [address] [place] [address] Phone #: ext- [phone] 07/30/2020 15:09 Patient: LELAND DIAZ Sex: F : 1980 Age: 40y 07/30/20 Zenaida Riggins RN 19:00 07/30/2020 Zofran IVP Response: no adverse reaction pain is improving. Symptoms have improved the patient feels better. -- :07/30/20 Zenaida Riggins RN 19:02 07/30/2020 Fentanyl IVP Response: no adverse reaction pain is improving. Symptoms have improved the patient feels better. --:07/30/20 Zenaida Riggins RN 19:25 07/30/2020 Site #[address] upon discharge ([place] catheter accessed for blood draw only, flushed with saline followed by Heparin flush by Ifeoma Navarrete RN @ [id number]). --19:07/30/20 Zenaida Riggins RN.DISPOSITION / DISCHARGE 19:07/30/20. BP: 99/65. MAP: 76. HR: 90. RR: 18. O2 saturation: 100%. Temp: 97.8 F. Pain level now: 02/27. --19:07/30/20 Zenaida Riggins RN 19:20 07/30/2020 Site #2 removed upon discharge. Catheter intact. Manual pressure and bandage applied. --:07/30/20 Zenaida Riggins RN 19:25 07/30/20. Condition at departure: improved and stable. No learning barriers present. Discharge instructions provided and reviewed with the patient. Patient verbalized understanding. Written instructions provided in Panamanian. The patient was discharged home and accompanied by spouse. She left ambulatory and via private vehicle. Spouse driving. --:07/30/20 Zenaida Riggins RN.Locked/Released at 07/30/2020 19:32 by Zenaida Riggins RN Name Value Range Interpretation Code Description Data Sumaya rce(s) Supporting Document(s) ID Date Data Source [id number] 07/30/2020 03:19:00 PM EDT [facility] 1 Clinical Report - Physicians/Mid Levels [facility] Emergency Department [address] [place] [address] Phone #: ext- [phone] 07/30/2020 15:09 Patient: LELAND DIAZ [facility]#: [id number] Sex: F : 1980 Age: 40y Time [...] The patient was seen recently at this [facility].REVIEW OF SYSTEMSThe patient has had a hysterectomy. [...] chest. 2 Clinical Report - Physicians/Mid Levels [facility] Emergency Department [address] [place] [address] Phone #: ext- [phone] 07/30/2020 15:09 [facility]: [id number] Sex: F : 1980 Age: 40y Nadege-en-Y gastrojejunostomy [2010]. Spinal fusion. Spinal fusion. Medications: Ambien Oral 7.5, daily as needed, at bedtime, via J tube. Benadryl IV 50mg QDAY for nausea, 2x a day. Carafate Oral 1 gm, q4h, via J tube. Creon Oral (Capsule Delayed Release Particles [id number] unit) 1 capsule, 4x a day, J [...] room air.Temp: 97.6 F. Pain level now: 8/10. Have been reviewed as abnormal. Tachycardic. Oxygen saturationnormal.Appearance: Alert. Oriented X3. No acute distress.Eyes: Pupils equal, round and reactive to light. Eyes normal inspection.ENT: Ears normal. Nose normal. Pharynx dleano l.Neck: Normal inspection.CVS: Tachycardia. Heart sounds normal.Respiratory: [...] study 3 Clinical Report - Physicians/Mid Levels [facility] Emergency Department [address] [place] [address] Phone #: ext- [phone] 07/30/2020 15:09 Patient: LELAND DIAZ Sex: F : 1980 Age: 40ywas [...] yrs 4 Clinical Report - Physicians/Mid Levels [facility] Emergency Department [address] [place] [address] Phone #: ext- [phone] 07/30/2020 15:09 Patient: LELAND DIAZ Sex: F : 1980 Age: 40y NON-AA GFR >60 mL/min AFR AMER GFR >60 mL/min Male GFR Interprentation 20-49 yrs >60 mL/min Zdlxue68-32 yrs >56 mL/min Normal 60-69 yrs >49 mL/min Normal 70-79yrs>42 mL/min Normal 80 and above >35 mL/min Normal Female GFRInterpretation 20-39 yrs >60 mL/min Normal 40-49 yrs >58 mL/minNormal 50-59 yrs >51 mL/min Normal 60-69 yrs >45 mL/min Lydxnk83-37 yrs >39 mL/min Normal 80 and above >32 mL/min NormalLactic Acid: (LUISANA: 07/30/2020 15:30) ( MsgRcvd 07/30/2020 16:07) Final results Test Result Flag Units (Reference) LACTIC ACID 3.0 H MMOL/L (0.2 - 2.2)Lipase: (LUISANA: 07/30/2020 15:30) ( MsgRcvd 07/30/2020 16:31) Final results Test Result Flag Units (Reference) LIPASE 28 U/L (13 - 60)Magnesium: (LUISANA: 07/30/2020 15:30) ( MsgRcvd 07/30/2020 16:31) Final results Test Result Flag Units (Reference) MAGNESIUM 2.0 MG/DL (1.7 - 2.2)Phosphorus: (LUISANA: 07/30/2020 15:30) ( MsgRcvd 07/30/2020 16:31) Final results Test Result Flag Units (Reference) PHOSPHORUS 4.0 MG/DL (2.5 - 4.5)PT/PTT: (LUISANA: 07/30/2020 15:30) ( MsgRcvd 07/30/2020 16:07) Final results Test Result Flag Units (Reference) PROTIME 12.6 SECONDS (11.0 - 15.5) INR 0.93 (0.93 - 1.23) PTT 26.8 SECONDS (24.8 - 36.7) \\BLDo\\INR INTERPRETATION\\BLDx\\ Therapeutic range for Coumadin andrelated oral anticoagulants. -International Normalized Ratio (INR): 2.0 - 3.0 for VenousThrombosis, Pulmonary Embolus, Tissue heart valves, Acute ND Atrial Fibrillation, Valvular heart diseaseand recurrent Systemic Embolism. -International Normalized Ratio (INR): 2.5 - 3.5 forMechanical Prosthetic valve.CT Abd PEL W/ IV Contrast Only: (LUISANA: 07/30/2020 15:35) ( IagRcvd 07/30/2020 17:43) In ProgressCT ABDReason(s): Abdominal PainTRANSPORTATION: WC IV? IV?(Yes) O2? Oxygen?(No) Ro Exam CT ABD //T// PELVIS W/ IV ONLY [facility] [address] [place] [address] PHONE: [phone] FAX: [phone] Name .................. : BASILIO Torres Acct Number.................. : [id number] ROOM. ................. : TR-1B MR Number ................... : [id number] Stay type ............. : E/R Discharge Date......... ... : Admit Date ......... : 07/30/20 Admit Phys .................... : MICHELLE SIMMONS Date of ....... : 1980 Family Phys ................... : MITA ROCHE Phone .................. : [phone] Age ................................ : 40 5 Clinical Report - Physicians/Mid Levels [facility] Emergency Department [address] [place] [address] Phone #: ext- [phone] 07/30/2020 15:09 Patient: LELAND DIAZ Sex: F : 1980 Age: 40y Film# .................. .:[id number] Sex ................................. : F Unsigned transcriptions are [...] free air or ascites. Page 1of [address] [place] [address] PHONE: [phone] FAX: [phone] Name .................. : BASILIO Torres Acct Number.................. : [id number] ROOM. ................. : [facility] MR Number ................... : [id number] Stay type ............. : E/R Discharge Date......... ... : Admit Date ......... : 07/30/20 Admit Phys ........... ......... : MICHELLE SIMMONS Date of ....... : 1980 Family Phys ................... : TAJKHOI ROCHE Phone .................. : [phone] Age ................................ : 40 Film# .................. .:[id number] Sex ................................. : F Unsigned transcriptions are preliminary reports and do not represent a medical or legal document CT ABD Reason(s): Abdominal Pain 6 Clinical Report - Physicians/Mid Levels [facility] Emergency Department [address] [place] [address] Phone #: ext- [phone] 07/30/2020 15:09 [id number] Sex: F : 1980 Age: 40y Lung [...] administration: Intravenous Electronically Reviewed and Signed By DCTNAME , SIGNDATE, APM Transcribe Initials: BECK , Transcribe Date: 07/30/20 17:38, Dictation Date: <<REPDIST>> Page 2 of 2.PROGRESS AND PROCEDURESCourse of Care: 19:14 Jul 30 2020. Evaluation after observation and results of tests back. (Discussedcase with Hospitalist Carlitos Kruger NP and he feels pt should be transferred, pt does not with to betransferred and pain is better after 50mcg Fentanyl, [...] diabetes. 7 Clinical Report - Physicians/Mid Levels [facility] Emergency Department [address] [place] [address] Phone #: ext- [phone] 07/30/2020 15:09 Patient: LELAND DIAZ [facility]#: [id number] Sex: F : 1980 Age: 40yINSTRUCTIONS Warnings: [...] Creon Oral : Capsule Delayed Release Particles [id number] unit, 1 capsule 4x a day, J [...] rce(s) Supporting Document(s) ID Date Data Source [id number] 07/31/2020 04:40:00 PM EDT [facility] Name Value Range Interpretation Code Description Data Sumaya rce(s) Supporting Document(s) Procalcitonin <0.05 ng/ml 0.00-0.50 Normal (applies to non-numeric r esults) [facility] PCT Concentration: <= 0.5 ng/mLInterpre tation: [...] shockThe above 1 analytes were performed by [facility] [email or web address], ,[place] [address] ID Date Data Source [id number] 07/31/2020 04:29:00 PM EDT [facility] Name Value Range Interpretation Code Description Data Sumaya rce(s) Supporting Document(s) AST 20 IU/L 15-37 Normal (applies to non-numeric resul ts) [facility] Sulfasalazine and sulfapyridine have the potential to falsely depressAspartate Aminotransferase results. Baseline values before medication administration are recommended. ALT 48 IU/L 13-56 Normal (applies to non-numeric resul ts) [facility] Sulfasalazine and sulfapyridine have the potential to falsely depressAlanine Aminotransferase results. Baseline values before medication administration are recommended. Alkaline Phosphatase 151 mIU/ml 50-136 Above high normal [facility] Total Bilirubin 0.40 mg/dl 0.20-1.00 Normal (applies to non-numeric results) [facility] Blood Urea Nitrogen 8 mg/dl 7-18 Normal (applies to non-nume zaina results) [facility] Creatinine 0.53 mg/dl 0.51-0.95 Normal (applies to non-numeric resul ts) [facility] N-Acetylcysteine (NAC) and Metamizole lemus ve the potential to falselydepress Creatinine results. Baseline values before medication adminstration are recommended. Patients undergoing treatment with phenindione will have falselydepressed results. Patients on phenindione therapy should be tested with an alternativeCREA method.Toxic levels of acetaminophen may lead to falsely depressed results forpatient samples. Glomerular Filtration Rate >90.00 mL/min/1.73m2 [facility] GFR Reference Ranges:Normal Function or Mild [...] of Health and the National KidneyFoundation. The Castor method used in calculating this result is traceable to IDMS standards. Glucose 106 mg/dl 70-110 Normal (applies to non-numeric resul ts) [facility] Sulfasalazine has the potential to false ly depress Glucose results. Sulfapyridine has the potential to falsely elevate Glucose results. Baseline values before medication administration are recommended. Calcium 8.9 mg/dl 8.5-10.1 Normal (applies to non-numeric resul ts) [facility] Total Protein 6.7 g/dl 6.4-8.2 Normal (applies to non-numeric re sults) [facility] Albumin 3.6 g/dl 3.4-5.0 Normal (applies to non-numeric resul ts) [facility] Sodium 140 mEq/L 136-145 Normal (applies to non-numeric resul ts) [facility] Potassium 3.8 mEq/L 3.5-5.1 Normal (applies to non-numeric resul ts) [facility] Chloride 110.0 mEq/L 98.0-107.0 Above high normal [facility] Anion Gap 8.8 [facility] Carbon Dioxide 25.0 mMol/L 21.0-32.0 Normal (applies to non-numeric results) [facility] The above 16 analytes were performed by [facility] [id number], ,[place] [address] ID Date Data Source [id number] 07/31/2020 04:29:00 PM EDT [facility] Name Value Range Interpretation Code Description Data Sumaya rce(s) Supporting Document(s) Lipase 125 IU/L 73-393 Normal (applies to non-numeric resul ts) [facility] The above 1 analytes were performed by [facility] [email or web address], ,[place] [address] ID Date Data Source [id number] 07/31/2020 04:29:00 PM EDT [facility] Name Value Range Interpretation Code Description Data Sumaya rce(s) Supporting Document(s) C-Reactive Protein (Non-Cardiac) <2.90 mg/L 0.00-3.00 Normal (applies to non- numeric results) [facility] The above 1 analytes were performed by [facility] [id number], ,[place] [address] ID Date Data Source [id number] 07/31/2020 04:14:00 PM EDT [facility] Name Value Range Interpretation Code Description Data Sumaya rce(s) Supporting Document(s) WBC 6.62 x1000/ul 4.80-10.00 Normal (applies to non-numeric re sults) [facility] RBC 3.77 x1Mil/ul 4.20-5.40 Below low normal [facility] Hemoglobin 9.1 g/dl 12.0-16.0 Below low normal [facility] Hematocrit 31.1 % 37.0-47.0 Below low normal [facility] MCV 82.5 fL 81.0-99.0 Normal (applies to non-numeric resul ts) [facility] MCH 24.1 pg 27.0-31.0 Below low normal [facility] MCHC 29.3 g/dl 32.2-37.0 Below low normal [facility] RDW 17.7 % 11.5-14.5 Above high normal [facility] Platelet Count 487 x1000/ul 130-400 Above high normal [facility] MPV 9.4 fL 9.4-12.4 Normal (applies to non-numeric resul ts) [facility] Neutrophils 80.2 % 40.0-74.[address] [facility] Lymphocytes 13.3 % 19.0-48.0 Below low normal [facility] Monocytes 5.1 % 3.4-9.0 Normal (applies to non-numeric resul ts) [facility] Eosinophils 0.3 % 0.0-7.0 Normal (applies to non-numeric resu lts) [facility] Basophils 0.9 % 0.0-2.0 Normal (applies to non-numeric resul ts) [facility] Immature Granulocytes 0.2 % 0.0-0.5 Normal (applies to non-nu meric results) [facility] Nucleated RBCs 0.00 % 0.00-0.20 Normal (applies to non-numeric r esults) [facility] Abs. Neutrophils 5.31 x1000/ul 1.92-8.31 Normal (applies to non-numeric results) [facility] Abs. Lymphocyte 0.88 x1000/ul 1.20-3.70 Below low normal [facility] Abs. Monocytes 0.34 x1000/ul 0.14-0.97 Normal (applies to non-nu meric results) [facility] Abs. Eosinophils 0.02 x1000/ul 0.00-0.76 Normal (applie s to non-numeric results) [facility] Abs. Basophils 0.06 x1000/ul 0.00-0.22 Normal (applies to non-n umeric results) [facility] Abs. Immature Gran. 0.01 x1000/ul 0.00-0.02 Normal (appl ies to non-numeric results) [facility] Abs. Nucleated RBCs 0.00 x1000/ul 0.00-0.02 Normal (appl ies to non-numeric results) [facility] The above 24 analytes were performed by [facility] [email or web address], ,[place] [address] ID Date Data Source [id number] 07/31/2020 05:17:00 AM EDT [facility] 1 OrderSheet [facility] Department [address] [place] [address] Phone #: [phone]- [phone] 07/31/2020 05:13 Patient: LELAND DIAZ Sex: F : 1980 Age: 40yWEIGHT:68.0 kg (S) HEIGHT:67 inches (S) BMI:23.5ALLERGIES: Levaquin, NSAID, Sulfa AntibioticsCHIEF COMPLAINT: abdominal pain, vomiting, nausea, diarrhea, abdominal pain, vomiting, cramps, nauseaDIAGNOSIS: Abdominal pain, Abdominal pain, Anemia, VomitingLAB ORDERSOrder Description Priority Entered Acknowledged InitialedBlood Culture STAT 05:44 07/31/2020 06:12 parviz Martinez0m X2 (Sched Cheri Lai RGuanakito05:44 07/31/2020) Physician;Blood Culture STAT 05:44 07/31/2020 06:12 parviz Martinez0m X2 (Sched Cheri Lai R.N.05:54 07/31/2020) Physician;CMP STAT 05:44 07/31/2020 06:12 Cheri Martinez R.N. Physician;CBC w Diff STAT 05:44 07/31/2020 06:12 Cheri Martinez R.N. Physician;Lipase STAT 05:44 07/31/2020 06:12 Cheri Martinez R.N. Physician;Lactic Acid STAT 05:44 07/31/2020 06:12 Cheri Martinez R.N. Physician;Urinalysis (Clean STAT 05:44 07/31/2020 Ack'd: 06:12 09:51 [place],Catch) Joelle Leonardo R.N. Physician; R.N.Sed. Rate STAT 05:47 07/31/2020 06:12 Cheri Martinez R.N. Physician;CRP STAT 05:47 07/31/2020 06:12 Cheri Mratinez R.N. Physician;DIAGNOSTIC STUDY ORDERSOrder Description Priority Entered Acknowledged Initialed 2 OrderSheet [facility] Department [address] [place] [address] Phone #: ext- [phone] 07/31/2020 05:13 Patient: LELAND DIAZ Sex: F : 1980 Age: 40yCT ABD PEL W/O STAT 05:44 07/31/2020 Ack'd: 06:12 06:32 Michelle,Oral W/O IV Joelle Leonardo R.N.Contrast Physician; R.N.(Oxygen?(No))(IV?(Yes)) NOTES: left sided Reason for Study: Abdominal PainMEDICATION/IV/DRIP/FLUID ORDERSOrder Description Priority Entered Acknowledged InitialedDilaudid IVP 1 mg 05:47 07/31/2020 06:15 Michelle,(HIGH ALERT Cheri Lai RGuanakitoMEDICATION) Physician;Phenergan IVP 05:47 07/31/2020 06:14 Michelle12.5mg X1 dose: Cheri Cerda.NCarmelo12.5 mg (NOW x1, Physician;HIGH ALERTMEDICATION)IV NS : 200 mL/hr 05:47 07/31/2020 06:15 Michelle,(NOW) Cheri Lai R.N. Physician;Dilaudid IVP 1 mg 06:34 07/31/2020 06:45 Michelle(HIGH ALERT Cheri Lai RCarmeloNCarmeloMEDICATION) Physician;Ativan IVP 1 mg 07:34 07/31/2020 07:40 Landon(HIGH ALERT Alec Castrejon RGuanakitoMEDICATION, Physician;NOW) Reason for ordering with alerts: Benefits outweigh risks -- 07:34 07/31/2020 Alec Calderón PhysicianfentaNYL IVP 25 08:57 07/31/2020 Cancelled: Wrong Order 08:57 apolinar Navarrete (NOW x1, Lucía Navarrete R.NCarmeloHIGH ALERT R.N.; Verbal orderMEDICATION) per; Cheri Burris PhysicianfentaNYL IVP 25 08:58 07/31/2020 09:06 apolianr Navarrete (NOW x1, Lucía Navarrete R.NCarmeloHIGH ALERT R.N.; Verbal orderMEDICATION) per; Alec Calderón PhysicianDilaudid IVP 1 mg 09:57 07/31/2020 10:05 Landon(HIGH ALERT Alec Castrejon RCarmeloNCarmeloMEDICATION) Physician; 3 OrderSheet [facility] Department [address] [place] [address] Phone #: ext- [phone] 07/31/2020 05:13 Patient: LELAND DIAZ Sex: F : 1980 Age: 40yPhenergan IV 12.5 09:57 07/31/2020 10:07 mg Landon (HIGH ALERT Alec Castrejon R.N.MEDICATION, Physician;NOW)GENERAL ORDERSOrder Description Priority Entered Acknowledged InitialedTransfer: (Transfer 10:21 07/31/2020 10:22 Landon,to [facility] Desiree Castrejon R.N.[facility] (New Physician;Soha) byambulance as perDr. Henning(AcceptingHospitalist) -07/31/20 09:55)[Electronically signed by Cheri Burris Physician (06:50 07/31/2020)][Electronically signed by Lucía Navarrete R.N. (11:01 07/31/2020)][Electronically signed by Alec Calderón Physician (14:41 07/31/2020)][Electronically locked by Lucía Navarrete R.N. (11:01 07/31/2020)] Name Value Range Interpretation Code Description Data Sumaya rce(s) Supporting Document(s) ID Date Data Source [id number] 07/31/2020 05:17:00 AM EDT [facility] 1 Medication Reconciliation Report [facility] [address] [place] [address] Phone #: ext- [phone] 07/31/2020 05:13 Patient: LELAND DIAZ Sex: F : 1980 Age: 40yWeight: 68.0 kgHeight/Length: 67 in.BMI: 23.5ALLERGIES: Levaquin, NSAID, Sulfa AntibioticsThe patient's Home Medications are listed below:THE FOLLOWING MEDICATIONS NEED TO BE RECONCILED: Ambien Oral 7.5, daily, via J tube, prn,at bedtime Benadryl IV 50mg QDAY for nausea, 2x a day Carafate Oral 1 gm, q4h, via J tube Creon Oral ([id number] unit) 1 capsule, 4x a day, J [...] 07/31/2020 6:10:00 AM 2 Medication Reconciliation Report [facility] Department [address] [place] [address] Phone #: ext- [phone] 07/31/2020 05:13 Patient: LELAND DIAZ Sex: F : 1980 Age: 40yIV [...] rce(s) Supporting Document(s) ID Date Data Source [id number] 07/31/2020 05:17:00 AM EDT [facility] 1 Medication Administration Record [facility] Department [address] [place] [address] Phone #: ext- [phone] 07/31/2020 05:13 Patient: LELAND DIAZ Sex: F : 1980 Age: 40yWeight: 68.0 kgHeight/Length: 67 inBMI: 23.5ALLERGIES: Levaquin, NSAID, Sulfa Antibiotics Date/Time Medication Administered Medication OrderedGiven DILAUDID [IVP] (HYDROMORPHONE Dilaudid IVP 1 mg (HIGH ALERT06:10 07/31/2020 HCL) MEDICATION)Joelle Martinez RCarmeloNCarmelo Dose: 1 mg IVP Site: #1 right chestGiven PHENERGAN [IVP] (PROMETHAZINE Phenergan IVP 12.5mg X1 dose:06:09 07/31/2020 HCL) 12.5 mg (NOW x1, HIGH ALERTJoelle Martinez R.N. Dose: 12.5 mg IVP MEDICATION) Site: #1 right chestStart IV NS IV NS : 200 mL/hr (NOW)06:10 07/31/2020 Dose: IV FluidsJoelle Martinez RGuanakito Rate: 200 mL/hr---- Dispensed: 1000 mL bagContinued [...] rce(s) Supporting Document(s) ID Date Data Source [id number] 07/31/2020 05:17:00 AM EDT [facility] 1 General Instructions [facility] Department [address] [place] [address] Phone #: [phone]- [phone] 07/31/2020 05:13 Patient: LELAND DIAZ Sex: F : 1980 Age: 40yAcute [...] rce(s) Supporting Document(s) ID Date Data Source [id number] 07/31/2020 05:17:00 AM EDT [facility] 1 Clinical Report - Nurses [facility] Department [address] [place] [address] Phone #: ext- [phone] 07/31/2020 05:13 Patient: LELAND DIAZ Sex: F : 1980 Age: 40yTRIAGEArrived [...] had nausea, vomiting, diarrhea and abdominal pain.Treatment [employer]ATING [employer]:None. --05:19 07/31/20 Joelle Martinez R.N.05:14 07/31/20. BP: [...] tube. Creon Oral (Capsule Delayed Release Particles [id number] unit) 1 capsule, 4x a day, J [...] Joelle Martinez R.N.AllergiesLevaquin.(hives)NSAID.Sulfa Antibiotics.(Anaphylaxis) --05:16 07/31/20 Joelle Matrinez R.N.PROBLEMS:Gastric ulcer. 2 Clinical Report - Nurses [facility] Department [address] [place] [address] Phone #: ext- [phone] 07/31/2020 05:13 Patient: LELAND DIAZ [facility]#: [id number] Sex: F : 1980 Age: 40yFever.Constipation.GI Disease.GI Bleeding.Gastroparesis.Back Injury.Anemia.Abdominal Pain.Cellulitis.Back Pain.Sepsis (disorder).Respiratory Distress.Pulmonary Embolism.UTI - Urinary Tract Infection.Status Epilepticus.Sinus Tachycardia.Lung Disease.Hypoxia.Hypokalemia.Other Disease.Malabsorption syndrome. --05:17 07/31/20 Joelle Martinez R.N.ADDITIONAL SURGERIES:Bowel resection.Bowel Resection [2016].Cholecystectomy.Gastric bypass.Gastric bypass reversal [08/2019].Gastric Resection [2009].GI bleed clipping.Hysterectomy.J-Tube placement.Life port removed.Lifeport [10/2017].Portacath left [...] declined. Patient 3 Clinical Report - Nurses [facility] Department [address] [place] [address] Phone #: ext- [phone] 07/31/2020 05:13 [id number] Sex: F : 1980 Age: 40y education [...] assessment completed. No skin integrity risk identified. --05:19 07/31/20 Joelle Martinez R.N. FAMILY HX: Negative - denies family medical history. --05:56 07/31/20 hCeri Burris, Physician. Interventions Identification band on patient. To treatment room. --05:19 07/31/20 Joelle Martinez R.N.PHYSICAL ASSESSMENTAmbulatory to room. Patient [...] on. --05:20 4 Clinical Report - Nurses [facility] Emergency Department [address] [place] [address] Phone #: ext- [phone] 07/31/2020 05:13 ------ [facility]: [id number] Sex[facility] F : 1980 Age: 40y10 Joelle Martinez R.N.06:08 07/31/2020 Site #1 accessed [...] warning. Verbalizes understanding. --06:15 07/31/20 Joelle Martinez R.N.06:10 07/31/2020 Started bag #1 1000 mL IV Fluids IV NS; at 200 mL/hr via site #1 via IV pump. Allergiesverified and confirmed 5 rights. IV patency established. IV site checked: no pain, redness, or swelling. IVflushed thoroughly pre- and post-medication administration. Information reviewed with patient. Verbalizesunderstanding. --06:15 07/31/20 oJelle Martinez R.N.The patient is calm and resting quietly. --06:16 07/31/20 Joelle Martinez R.N.06:15 07/31/20. BP: 137/76. MAP: 96. HR: 93. RR: 16. O2 saturation: 100%. -- 06:16 07/31/20Joelle Martinez R.N.Patient transported to [place] by wheelchair with technician's helper. --06:31 07/31/20 Joelle Martinez R.N.Overall patient status- she states feels the same. --06:31 07/31/20 Joelle Martinez R.N.06:25 07/31/2020 PHENERGAN IVP Response: symptoms are the same. [...] Martinez R.N. 5 Clinical Report - Nurses [facility] Emergency Department [address] [place] [address] Phone #: ext- [phone] 07/31/2020 05:13 Patient: LELAND DIAZ Sex: F : 1980 Age: 40yThe [...] 07/31/20 Nicolas Navarrete Clinical Report - Nurses [facility] Emergency Department [address] [place] [address] Phone #: ext- [phone] 07/31/2020 05:13 Patient: LELAND DIAZ Sex: F : 1980 Age: 40yLars Castrejon08:00 07/31/20. BP: 117/72. MAP: 87. HR: 93. [...] Navarrete R.N. 7 Clinical Report - Nurses [facility] Emergency Department [address] [place] [address] Phone #: ext- [phone] 07/31/2020 05:13 Patient: LELAND DIAZ Sex: F : 1980 Age: 40y09:25 07/31/20. [...] The patient feelsthe same. ED physician notified. --10:07 07/31/20 Lucía Navarrete R.N.10:02 07/31/2020 Dilaudid (HYDROmorphone HCl) [...] Navarrete R.N. 8 Clinical Report - Nurses [facility] Emergency Department [address] [place] [address] Phone #: ext- [phone] 07/31/2020 05:13 Patient: LELAND DIAZ Sex: F : 1980 Age: 40y [...] answered. Report was acknowledged. (Leila Bridges RN). --10:07/31/20 Lucía Navarrete R.N. 10:50 07/31/20. BP: 107/64. MAP: 78. HR: 96. RR: 18. O2 saturation: 99% on room air. Temp: 98.5 F (oral). Pain level now: 03/30. --11:00 07/31/20 Lucía Navarrete R.N. Departure time: 11:07/31/2020. Condition at departure: stable. Transferred to [facility]. Visit overview, summary of care (CCDA), Emtala [...] rce(s) Supporting Document(s) ID Date Data Source [id number] 07/31/2020 05:17:00 AM EDT [facility] 1 Clinical Report - Physicians/Mid Levels [facility] Emergency Department [address] [place] [address] Phone #: ext- [phone] 07/31/2020 05:13 [facility]: [id number] Sex: F : 1980 Age: 40y Time [...] the emergency department. ( In ER earlier tonight evaluated and recommended transfer. Patient refused.).REVIEW OF [...] Tachycardia. 2 Clinical Report - Physicians/Mid Levels [facility] Emergency Department [address] [place] [address] Phone #: ext- [phone] 07/31/2020 05:13 [id number] Sex: F : 1980 Age: 40y Hypoxia. [...] tube. Creon Oral (Capsule Delayed Release Particles [id number] unit) 1 capsule, 4x a day, J [...] and 3 Clinical Report - Physicians/Mid Levels [facility] Emergency Department [address] [place] [address] Phone #: tgw- [phone] 07/31/2020 05:13 Patient: LELAND DIAZN: [id number] [id number] Sex: F : 1980 Age: 40y patient medications and allergies.PHYSICAL EXAM Vital Signs: 07/31/2020 05:14 BP: 136/67. MAP: 90. HR: 92. RR: 20. O2 saturation: 100%. Temp: 97.9 F. Pain level now: 06/30. Have been reviewed as normal. Blood pressure [...] to it now. Has primarily gone to [facility] in past. Treatment plan discussed and agreed upon. Galicia catheter accessed and IV saline started. IV Dilaudid and Phenergan 12.[address] abd/Pel without contrast.). 06:35 Jul 31 2020. Dilaudid given (1 mg IV). ED care transferred. Case discussed with with Dr Calderón. Assumed care. Brief hx: Will require transfer to [facility]. Tentative impression: Intractable left sided abdominal pain with nausea and vomiting. Expected disposition: transfer.CLINICAL IMPRESSION Acute left upper quadrant and left lower quadrant abdominal pain.(Electronically signed by Cheri Burris, Physician 07/31/2020 06:50) Time Seen: 07:11 07/31/2020. 4 Clinical Report - Physicians/Mid Levels [facility] Emergency Department [address] [place] [address] Phone #: ext- [phone] 07/31/2020 05:13 Patient: LELAND DIAZ Sex: F : 1980 Age: 40y [...] MRSA. 5 Clinical Report - Physicians/Mid Levels [facility] Emergency Department [address] [place] [address] Phone #: ext- [phone] 07/31/2020 05:13 Patient: LELAND DIZA [facility]#: [id number] Sex: F : 1980 Age: 40y Surgeries: [...] 98%. Temp: 98.2 F. Pain level now: 8/10. Have been reviewed and appear to be [...] results 6 Clinical Report - Physicians/Mid Levels [facility] Emergency Department [address] [place] [address] Phone #: ext- [phone] 07/31/2020 05:13 Patient: LELAND DIAZ Sex: F : 1980 Age: 40y Test Result Flag Units (Reference) SED RATE 16 mm/hr (0 - 20) SED RATE REENTER 16CRP: (LUISANA: 07/31/2020 06:08) ( MsgRcvd 07/31/2020 06:51) Final results Test Result Flag Units (Reference) CRP-HS 0.88 L MG/L (1.00 - 3.00) CDC/AHS HS-CRP CUT-OFF: RELATIVE RISK: <1.0 mg/LLow 1.0 [...] Male GFR Interprentation 20-49 yrs >60 mL/min Rvtgcv85-99 yrs >56 mL/min Normal 60-69 yrs >49 mL/min Normal 70-79yrs>42 mL/min Normal 80 and above >35 mL/min Normal Female GFRInterpretation 20-39 yrs >60 mL/min Normal 40-49 yrs >58 mL/minNormal 50-59 yrs >51 mL/min Normal 60-69 yrs >45 mL/min Eqmtoa23- 79 yrs >39 mL/min Normal 80 and [...] 34.0) 7 Clinical Report - Physicians/Mid Levels [facility] Emergency Department [address] [place] [address] Phone #: ext- [phone] 07/31/2020 05:13 Patient: LELAND DIAZ Sex: F : 1980 Age: 40y [...] DELANO COMMENT: Lipase: (LUISANA: 07/31/2020 06:08) ( [facility] 07/31/2020 06:51) Final results Test Result Flag Units (Reference) LIPASE 33 U/L (13 - 60)Lactic Acid: (LUISANA: 07/31/2020 06:08) ( [facility] 07/31/2020 06:44) Final results Test Result Flag Units (Reference) LACTIC ACID 2.0 MMOL/L (0.2 - 2.2)CT ABD PEL W/O Oral W/O IV Contrast: (LUISANA: 07/31/2020 05:44) ( MsgRcvd 07/31/2020 07:42)Final results Exam CT ABD //T// PELV W/O ORAL W/[place] [address] ---------NAME--------- NUMBER SEX AGE ADMIT DISC. XRAY# F/C TYPE BASILIO Torres [id number] F 40 07/31/20 [id number] BB2 E/R DATE OF : 1980 M/R# [id number] #: [id number] TR-05 LOCATION: EMERGENCY DEPT TRANSCRIBED: 07/31/20 7:[address] ABD //T// PELV W/O ORAL W/[place] [id number] COMPLETED:07/31/20 6:42 DLA 27320 Reason(s): Abdominal Pain 8 Clinical Report - Physicians/Mid Levels [facility] Emergency Department [address] [place] [address] Phone #: ext- [phone] 07/31/2020 05:13 Patient: LELAND DIAZ Sex: F : 1980 Age: 40y PHYSICIAN: [...] orscarring. 9 Clinical Report - Physicians/Mid Levels [facility] Emergency Department [address] [place] [address] Phone #: ext- [phone] 07/31/2020 05:13 Patient: LELAND DIAZ Sex: F : 1980 Age: 40y [...] pericardial effusion.).PROGRESS AND PROCEDURES Course of Care: 09:Jul 31 2020. Patient is stable. 09:27 Jul 31 2020. I have attempted to transfer pt. to [facility], but all have had no available beds. [facility] refused because they do not have GI services. I spoke with Dr. Simmons (Hospitalist) and the patient is well known at [facility] as a chronic pain patient. Dr. Simmons spoke with the surgeon on- call (Dr. Rasheed) and he said the patient is not surgical and he sees her at his office twice a week. He recommends discharging the patient and having her follow-up with Pain Management as outpatient. 09:58 Jul 31 2020. I spoke with hospitalist (Dr. Henning) at [facility]) and he has accepted pt. for admission [...] explained to patient and spouse. Transferred to [facility]. Summary of care (CCDA) provided to transport team, EMS, patient, family and transfer facility via paper and digital media. 09:55 Jul 31 2020 Transfer to [facility] by ambulance as per Dr. Henning (Accepting Hospitalist). UTI (catheter associated) was not present prior to transfer. Pressure ulcer was not present prior to transfer. Vascular infection (catheter associated) was not 10 Clinical Report - Physicians/Mid Levels [facility] Emergency Department [address] [place] [address] Phone #: ext- [phone] 07/31/2020 05:13 Patient: LELAND DIAZ Sex: F : 1980 Age: 40y present [...] TPN and J-tube feedings)).(Electronically signed by Alec Calderón Physician 07/31/2020 14:41) Name Value Range Interpretation Code Description Data Sumaya rce(s) Supporting Document(s) ID Date Data Source [id number] 07/31/2020 10:00:00 AM EDT [facility] Name Value Range Interpretation Code Description Data Sumaya rce(s) Supporting Document(s) URINALYSIS [facility] gregg URINALYSIS SOURCE Clean Catch [facility] COLOR yellow NORMAL: Yellow [facility] CLARITY clear NORMAL: Clear [facility] Specific gravity of Urine by Test strip 1.010 1.001 - 1.030 [facility] pH 7 5 - 9 [facility] Gl[facility] [Mass/volume] in Urine by Test strip NORM NORMAL: Negat [facility] Bilirubin.total [Presence] in Urine by Test strip NEG NORMAL: Negative [facility] Ketones [Presence] in Urine by Test strip 15 NORMAL: Negative A [facility] Protein [Mass/volume] in Urine by Test strip NEG NORMAL: Negat [facility] Nitrite [Presence] in Urine by Test strip NEG NORMAL: Negative [facility] BLOOD NEG NORMAL: Negative [facility] Leukocyte esterase [Presence] in Urine by Test strip NEG DELANO L: Negative [facility] Urobilinogen [Mass/volume] in Urine by Test strip NOR less tenisha n 1.0 mg/dL [facility] MICROSCOPIC Not Indicate [facility] ID Date Data Source [id number] 07/31/2020 07:59:50 AM EDT [facility] Name Value Range Interpretation Code Description Data [facility] rce(s) Supporting Document(s) Progress Note [facility] RJVSEk5sQlTEHbYo40/HWPijJTEhv2MqVXdqMDy9SUfrVFOhG6PmZNV8oC6lVJK3MHmNDvHiJsRuOREy lbm [file] AgICAgICAgICAgICAgICAgICAgICAgICAgICAgICAg ICAgICAgICAgICAgICAgICAgICAgICAgICAgICAgICAgICAgICANCiAgICAgICAgICAgICAgICAgICAg ICAgICAgICAgICAgICAgICAgICAgICAgICAgICAgICAgICAgICAgICAgICAgICAgICAgICAgICAgICAg ICAgICAgICAgICAgICAgICAgICANCiAgICAgICAgIC AgICAgICAgICAgICAgICAgICAgICAgICAgICAgICAgICAgICAgICAgICAgICAgICAgICAgICAgICAgIC AgICAgICAgICAgICAgICAgICAgICAgICAgICAgICANCiAgICAgICAgICAgICAgICAgICAgICAgICAgIC AgICAgICAgICAgICAgICAgICAgICAgICAgICAgICAg ICAgICAgICAgICAgICAgICAgICAgICAgICAgICAgICAgICAgICAgICANCiAgICAgICAgICAgICAgICAg ICAgICAgICAgICAgICAgICAgICAgICAgICAgICAgICAgICAgICAgICAgICAgICAgICAgICAgICAgICAg ICAgICAgICAgICAgICAgICAgICAgICANCiAgICAgIC AgICAgICAgICAgICAgICAgICAgICAgICAgICAgICAgICAgICAgICAgICAgICAgICAgICAgICAgICAgIC AgICAgICAgICAgICAgICAgICAgICAgICAgICAgICAgICANCiAgICAgICAgICAgICAgICAgICAgICAgIC AgICAgICAgICAgICAgICAgICAgICAgICAgICAgICAg ICAgICAgICAgICAgICAgICAgICAgICAgICAgICAgICAgICAgICAgICAgICANCiAgICAgICAgICAgICAg ICAgICAgICAgICAgICAgICAgICAgICAgICAgICAgICAgICAgICAgICAgICAgICAgICAgICAgICAgICAg ICAgICAgICAgICAgICAgICAgICAgICAgICANCiAgIC AgICAgICAgICAgICAgICAgICAgICAgICAgICAgICAgICAgICAgICAgICAgICAgICAgICAgICAgICAgIC AgICAgICAgICAgICAgICAgICAgICAgICAgICAgICAgICAgICANCiAgICAgICAgICAgICAgICAgICAgIC AgICAgICAgICAgICAgICAgICAgICAgICAgICAgICAg ICAgICAgICAgICAgICAgICAgICAgICAgICAgICAgICAgICAgICAgICAgICAgICANCjw/rPOcC9bumZCk hcW3D4hiUx0JOh7NNL7aq9ElBRCdINcidvCfBvuCSpEjDVXxEynWSpp3QTyjEQ2TjWVoC2WxX8DoWPzt VL0AJQOsAPUtsZCvVYRiRZNjWhD1WYSfJGpmDB1YtW XeRGsdODBlPTAiJB6AYNKrC984kqHcWR5WFj9KEoYoPJ8soh4CLVQuEBHzKsyWZga3MVqlKN3ZuVKezL QwUIDqFXCLVnZwW6est3PwAFJpLBMYASwzQG1Af3HopRFjQPd+Ky9JRJ9ii1ZsMMigYCIiPV3sji8OON hIDqLfH9VlgGlrZDSkw7rbCADkKJ2pxXXwGKX7LKdg pcAsIROilMDjxvNgOKTFSjYmzHRyTA4cIF5jBPWuBAC3AfS9CCPWYR9BDYWxLEIqzHDsOXGaVKCGDL7C GTyaRBA4EXQisfZrfZYjSImjDL4YOJPdovCrVSElYPDBWTy+Sj3JZT2yx7HsAXdpLwXnPP7usy5MXVgY SnDwJ5J3oIIoS0X4IVyyYk5STNQqDQOlJPCnHSUDPP jeDT9LZX8uyoL4JF4OoYIqVEMlQWKcqFPeOBe7W16wzNDzGCcwSD8ELTE+Savannah+Sn8LSGRmHVGrYLXlXs IuEBZCUiUcN9PdG0MFh0ViK0AyLY65xGkvdaHvCLnhIN8TSP4uACTkZPOQWH6PrHLvnL3vcxJdRRKpHK GVMwSeI25qiIZfCORpLEMzGMRjJl6MCGSaK2ZffqEj gVpkgrViWYYnLFNZZN3KXKhsriMdpKOloHitWV39bIncXI2IFe7AQcXhOQ7rsh6YnSCaVw1ZXBZnIg8E KEHzLABbCCMgMHA8UDNtRzEuDTksFZOpLSJhZNJ1XTOmKQNlEO6KMaPcIXUwSIE1HsBlHPLzRUXkrh6H SEGoAWTiFxV4YZXjOSDuUACsPLxjVKQwPKPaFTF8ER QmCJNcES9SYfMhXCUpMKB1AuEkLERmMCZnos0QWVJeHFNyMzHoMSIiZNImMGZyXXcbYYJyQGVhPRi7GN TiRMPgQR8KYdRmGOFyHFFkRJGpUAVnAMFvuw4JRWBnOJJsYfH5VtVnIEKvBBBbXExpLNFnFGA7WhNxWV ZeJDMxYG8PGjNiVAAfETG4VuSzAXVqLXUalh7REINj EEBtNFqePSDkRLUdFDYoUGfqQWXkRRP6CRP8XJEmOUVsMJ9GCwNfLWEcPEP4MORyGJOxXPWqpi0PMSWy JJIzZdPeQhZhFFGuKEEbXOzrJIFzBCS2TvkbHCCrVBJdYT0MThKkEFsuMSSXBvj3MXhvG5m9CHCsXk5U D5Egq2JmUWArCPPVKUrcOI5wlwMrIXNhYa4IW1sAYc x7TYmkRPY4MXPfEYVaUwX3HZteZqJ2ZUV3LwXzFoAfUS0dIQEnE5NeByffJJI7DWBnFHtiLDEfXylyAJ mlWpA1JsJhGtEmXI5LUe8DLjJ0CJX8tWAkBx2PWaGsSe5ZWQGWM2ZCPm== ID Date Data Source [id number] 07/31/2020 07:42:00 AM EDT [facility] [address] [place] [address] ---------NAME--------- NUMBER SEX AGE ADMIT DISC. XRAY# F/C TYPE BASILIO Torres [id number] F 40 07/31/20 [id number] BB2 E/R DATE OF : 1980 M/R# [id number] #: [id number] TR-05 LOCATION: EMERGENCY DEPT TRANSCRIBED: 07/31/20 7:[address] ABD //T// PELV W/O ORAL W/[place] [id number] COMPLETED:07/31/20 6:42 DLA [id number] Reason(s): Abdominal Pain PHYSICIAN: MICHELLE SIMMONS======= R [...] rce(s) Supporting Document(s) ID Date Data Source [id number] 08/05/2020 08:32:00 AM EDT [facility] 1157 Name Value Range Interpretation Code Description Data Sumaya rce(s) Supporting Document(s) Bacteria identified in Blood by Culture [facility] NO GROWTH AFTER 5 DAYS ID Date Data Source [id number] 08/06/2020 01:46:00 PM EDT [facility] Name Value Range Interpretation Code Description Data [facility] rce(s) Supporting Document(s) CULTURE BLOOD [facility] _CULTURE BLOOD_ TEST PERFORM ED AT [facility] [address] [place] [address] CLIA# [id number] SEE SCANNED REPORT{ PRELIM ID Date Data Source [id number] 07/31/2020 06:58:00 AM EDT [facility] Name Value Range Interpretation Code Description Data [facility] rce(s) Supporting Document(s) Erythrocyte sedimentation rate by Westergren method 16 mm/hr 0 - 20 [facility] SED RATE REENTER 16 [facility] ID Date Data Source [id number] 07/31/2020 06:54:00 AM EDT [facility] Name Value Range Interpretation Code Description Data [facility] rce(s) Supporting Document(s) CBC W/AUTOMATED DIFF [facility] COMPLETE BLOOD COUNT Leukocytes [#/volume] in Blood by Automated count 7.5 10^3/uL 4.2 - 1 1.0 [facility] Erythrocytes [#/volume] in Blood by Automated count 4.07 10^6/uL 4. 20 - 5.40 L [facility] Hemoglobin [Mass/volume] in Blood 9.6 g/dL 12.0 - 16.0 L [facility] Hematocrit [Volume Fraction] of Blood by Automated count 32.3 % 3 7.0 - 47.0 L [facility] Erythrocyte mean corpuscular volume [Entitic volume] by Auto mated count 79.4 fL 81.0 - 101 L [facility] Erythrocyte mean corpuscular hemoglobin [Entitic mass] by Automated count 23.6 pg 27.0 - 34.0 L [facility] Erythrocyte mean corpuscular hemoglobin concentration [Mass/volume] by Automated count 29.7 g/dL 31.0 - 36.0 L [facility] Erythrocyte distribution width [Ratio] by Automated count 17.9 % 11.5 - 14.5 H [facility] Platelets [#/volume] in Blood by Automated count 520 10^3/uL 150 - 45 0 H [facility] Platelet mean volume [Entitic volume] in Blood by Automated count 9.0 fL 7.4 - 10.4 [facility] Neutrophils/100 leukocytes in Blood by Automated count 83.8 % 37. 0 - 80.0 H [facility] Lymphocytes/100 leukocytes in Blood by Manual count 8.3 % 25.0 - 40.0 L [facility] Monocytes/100 leukocytes in Blood by Automated count 3.3 % 3.0 - 8.0 [facility] Eosinophils/100 leukocytes in Blood by Automated count 3.6 % 0.0 - 7.0 [facility] Basophils/100 leukocytes in Blood by Automated count 0.7 % 0.0 - 2.5 [facility] %IG 0.3 % 0.0 - 0.0 H [facility] al %NRBC 0.0 % 0.0 - 0.0 [facility] al Neutrophils [#/volume] in Blood by Automated count 6.29 10^3/uL 2.00 - 6.90 [facility] Lymphocytes [#/volume] in Blood by Automated count 0.62 10^3/uL 0.60 - 3.40 [facility] Monocytes [#/volume] in Blood by Automated count 0.25 10^3/uL 0.00 - 0.90 [facility] Eosinophils [#/volume] in Blood by Automated count 0.27 10^3/uL 0.00 - 0.70 [facility] Basophils [#/volume] in Blood by Automated count 0.05 10^3/uL 0.00 - 0.20 [facility] #IG 0.02 10^3/uL 0.00 - 0.10 [facility] #NRBC 0.00 10^3/uL 0.00 - 0.00 [facility] ospital MANUAL DIFF SEE BELOW [facility] ital Segmented neutrophils/100 leukocytes in Blood by Manual count 91 % 37 - 80 H [facility] %LYMPH 6 % 25 - 40 L [facility] Hospit al %MONO 3 % 3 - 8 [facility] RBC MORPH SEE BELOW [facility] Anisocytosis [Presence] in Blood by Light microscopy 1+ DELANO L: NONE SEEN A [facility] Microcytes [Presence] in Blood by Light microscopy 1+ NORMAL: NONE SEEN A [facility] Poikilocytosis [Presence] in Blood by Light microscopy 1+ NOR MAL: NONE SEEN A [facility] HYPO 2+ NORMAL: NONE SEEN A [facility] { SICKLE CELL (NORMAL: NONE SEEN ) Ovalocytes [Presence] in Blood by Light microscopy 1+ NORMAL: NONE SEEN A [facility] Neutrophils.hypersegmented [Presence] in Blood by Light micr oscopy 1+ NORMAL: NONE SEEN A [facility] Platelet adequacy [Presence] in Blood by Light microscopy IN CREASED NORMAL: NORMAL A [facility] COMMENT: ID Date Data Source [id number] 07/31/2020 06:51:00 AM EDT [facility] Name Value Range Interpretation Code Description Data [facility] rce(s) Supporting Document(s) C reactive protein [Mass/volume] in Serum or Plasma by High sensitivity method 0.88 MG/L 1.00 - 3.00 L [facility] CDC/S HS-CRP CUT-OFF: RELATIVE RISK: <1.0 mg/L Low 1.0 - 3.0 mg/L Average >3.0 mg/L High Optimally, the average of HS-CRP results repeated two weeks apart should be used for risk assessment. ID Date Data Source [id number] 07/31/2020 06:51:00 AM EDT [facility] Name Value Range Interpretation Code Description Data Sumaya rce(s) Supporting Document(s) Lipase [Enzymatic activity/volume] in Serum or Plasma 33 U/L 13 - 60 [facility] ID Date Data Source [id number] 07/31/2020 06:51:00 AM EDT [facility] Name Value Range Interpretation Code Description Data [facility] rce(s) Supporting Document(s) COMPREHENSIVE METABOLIC PANEL [facility] COMPREHENSIVE METABOLIC PANEL Sodium [Moles/volume] in Serum or Plasma 136 mEq/L 134 - 153 [facility] Potassium [Moles/volume] in Serum or Plasma 4.2 mEq/L 3.6 - 5.0 [facility] Chloride [Moles/volume] in Serum or Plasma 101 mEq/L 98 - 107 [facility] Carbon dioxide, total [Moles/volume] in Serum or Plasma 23 MEQ/L 22 - 30 [facility] Glucose [Mass/volume] in Serum or Plasma 163 MG/DL 65 - 110 H [facility] BUN 11 MG/DL 7 - 21 [facility] al Creatinine [Mass/volume] in Serum or Plasma 0.6 MG/DL 0.7 - 1.5 L [facility] BUN/CREAT 18 8 - 27 [facility] Protein [Mass/volume] in Serum or Plasma 6.8 G/DL 6.3 - 8.2 [facility] Albumin [Mass/volume] in Serum or Plasma 4.4 G/DL 3.9 - 5.0 [facility] Globulin [Mass/volume] in Serum by calculation 2.4 GM/DL 2.4 - 3.2 [facility] A/G RATIO 1.8 0.8 - 2.0 [facility] Calcium [Mass/volume] in Serum or Plasma 9.3 MG/DL 8.4 - 10.2 [facility] Bilirubin.total [Mass/volume] in Serum or Plasma <0.7 MG/DL 0.2 - 1.3 [facility] Alkaline phosphatase [Enzymatic activity/volume] in Serum or Plasma 180 U/L 38 - 126 H [facility] Aspartate aminotransferase [Enzymatic activity/volume] in Serum or Plasma 30 U/L 5 - 40 [facility] Alanine aminotransferase [Enzymatic activity/volume] in Seru m or Plasma 46 U/L 7 - 56 [facility] Anion gap 3 in Serum or Plasma 12.0 mmol/L 8.0 - 16.0 [facility] AGE 40 yrs [facility] NON-AA GFR >60 mL/min [facility] AFR AMER GFR >60 mL/min [facility] Male GFR In terprentation [...] >32 mL/min Normal ID Date Data Source [id number] 07/31/2020 06:44:00 AM EDT [facility] Name Value Range Interpretation Code Description Data [facility] rce(s) Supporting Document(s) Lactate [Moles/volume] in Serum or Plasma 2.0 MMOL/L 0.2 - 2.2 [facility] ID Date Data Source [id number] 08/06/2020 01:46:00 PM EDT [facility] Name Value Range Interpretation Code Description Data [facility] rce(s) Supporting Document(s) CULTURE BLOOD [facility] _CULTURE BLOOD_ [place] [address] CLIA# [id number] SEE SCANNED REPORT{ PRELIM ID Date Data Source [id number] 08/05/2020 08:34:00 AM EDT [facility] 1052 Name Value Range Interpretation Code Description Data [facility] rce(s) Supporting Document(s) Bacteria identified in Blood by Culture [facility] NO GROWTH AFTER 5 DAYS ID Date Data Source [id number] 08/06/2020 01:46:00 PM EDT [facility] Value Range Interpretation Code Description Data [facility] rce(s) Supporting Document(s) CULTURE BLOOD [facility] _CULTURE BLOOD_ [place] [address] CLIA# [id number] SEE SCANNED REPORT{ PRELIM ID Date Data Source [id number] 07/30/2020 04:31:00 PM EDT [facility] Value Range Interpretation Code Description Data [facility] rce(s) Supporting Document(s) Phosphate [Mass/volume] in Serum or Plasma 4.0 MG/DL 2.5 - 4.5 [facility] ID Date Data Source [id number] 07/30/2020 04:31:00 PM EDT [facility] Value Range Interpretation Code Description Data [facility] rce(s) Supporting Document(s) Magnesium [Mass/volume] in Serum or Plasma 2.0 MG/DL 1.7 - 2.2 [facility] ID Date Data Source [id number] 07/30/2020 04:31:00 PM EDT [facility] Value Range Interpretation Code Description Data [facility] rce(s) Supporting Document(s) Lipase [Enzymatic activity/volume] in Serum or Plasma 28 U/L 13 - 60 [facility] ID Date Data Source [id number] 07/30/2020 04:31:00 PM EDT [facility] Value Range Interpretation Code Description Data [facility] rce(s) Supporting Document(s) COMPREHENSIVE METABOLIC PANEL [facility] COMPREHENSIVE METABOLIC PANEL Sodium [Moles/volume] in Serum or Plasma 136 mEq/L 134 - 153 [facility] Potassium [Moles/volume] in Serum or Plasma 4.7 mEq/L 3.6 - 5.0 [facility] Chloride [Moles/volume] in Serum or Plasma 99 mEq/L 98 - 107 [facility] Carbon dioxide, total [Moles/volume] in Serum or Plasma 23 MEQ/L 22 - 30 [facility] Glucose [Mass/volume] in Serum or Plasma 160 MG/DL 65 - 110 H [facility] BUN 12 MG/DL 7 - 21 [facility] Creatinine [Mass/volume] in Serum or Plasma 0.6 MG/DL 0.7 - 1.5 L [facility] BUN/CREAT 20 8 - 27 [facility] al Protein [Mass/volume] in Serum or Plasma 7.4 G/DL 6.3 - 8.2 [facility] Albumin [Mass/volume] in Serum or Plasma 4.7 G/DL 3.9 - 5.0 [facility] Globulin [Mass/volume] in Serum by calculation 2.7 GM/DL 2.4 - 3.2 [facility] A/G RATIO 1.7 0.8 - 2.0 [facility] Calcium [Mass/volume] in Serum or Plasma 9.8 MG/DL 8.4 - 10.2 [facility] Bilirubin.total [Mass/volume] in Serum or Plasma <0.7 MG/DL 0.2 - 1.3 [facility] Alkaline phosphatase [Enzymatic activity/volume] in Serum or Plasma 223 U/L 38 - 126 [facility] Aspartate aminotransferase [Enzymatic activity/volume] in Serum or Plasma 60 U/L 5 - 40 [facility] Alanine aminotransferase [Enzymatic activity/volume] in Seru m or Plasma 67 U/L 7 - 56 H [facility] Anion gap 3 in Serum or Plasma 14.0 mmol/L 8.0 - 16.0 [facility] AGE 40 yrs [facility] NON-AA GFR >60 mL/min [facility] ital AFR AMER GFR >60 mL/min [facility] Ho spital Male GFR In terprentation [...] >32 mL/min Normal ID Date Data Source [id number] 07/30/2020 04:07:00 PM EDT [facility] Name Value Range Interpretation Code Description Data Sumaya rce(s) Supporting Document(s) CBC W/AUTOMATED DIFF [facility] COMPLETE BLOOD COUNT Leukocytes [#/volume] in Blood by Automated count 9.9 10^3/uL 4.2 - 1 1.0 [facility] Erythrocytes [#/volume] in Blood by Automated count 4.41 10^6/uL 4. 20 - 5.40 [facility] Hemoglobin [Mass/volume] in Blood 10.5 g/dL 12.0 - 16.0 [facility] Hematocrit [Volume Fraction] of Blood by Automated count 35.0 % 3 7.0 - 47.0 L [facility] Erythrocyte mean corpuscular volume [Entitic volume] by Auto mated count 79.4 fL 81.0 - 101 L [facility] Erythrocyte mean corpuscular hemoglobin [Entitic mass] by Automated count 23.8 pg 27.0 - 34.0 L [facility] Erythrocyte mean corpuscular hemoglobin concentration [Mass/volume] by Automated count 30.0 g/dL 31.0 - 36.0 L [facility] Erythrocyte distribution width [Ratio] by Automated count 17.7 % 11.5 - 14.5 H [facility] Platelets [#/volume] in Blood by Automated count 656 10^3/uL 150 - 45 0 [facility] Platelet mean volume [Entitic volume] in Blood by Automated count 9.1 fL 7.4 - 10.4 [facility] Neutrophils/100 leukocytes in Blood by Automated count 87.2 % 37. 0 - 80.0 H [facility] Lymphocytes/100 leukocytes in Blood by Manual count 7.2 % 25.0 - 40.0 L [facility] Monocytes/100 leukocytes in Blood by Automated count 2.3 % 3.0 - 8.0 L [facility] Eosinophils/100 leukocytes in Blood by Automated count 2.0 % 0.0 - 7.0 [facility] Basophils/100 leukocytes in Blood by Automated count 0.8 % 0.0 - 2.5 [facility] %IG 0.5 % 0.0 - 0.0 H [facility] Hospit al %NRBC 0.0 % 0.0 - 0.0 [facility] al Neutrophils [#/volume] in Blood by Automated count 8.61 10^3/uL 2.00 - 6.90 [facility] Lymphocytes [#/volume] in Blood by Automated count 0.71 10^3/uL 0.60 - 3.40 [facility] Monocytes [#/volume] in Blood by Automated count 0.23 10^3/uL 0.00 - 0.90 [facility] Eosinophils [#/volume] in Blood by Automated count 0.20 10^3/uL 0.00 - 0.70 [facility] Basophils [#/volume] in Blood by Automated count 0.08 10^3/uL 0.00 - 0.20 [facility] #IG 0.05 10^3/uL 0.00 - 0.10 [facility] ospital #NRBC 0.00 10^3/uL 0.00 - 0.00 [facility] ospital MANUAL DIFF NOT INDICATED [facility] RBC MORPH NOT INDICATED [facility] spital ID Date Data Source [id number] 07/30/2020 04:07:00 PM EDT [facility] Name Value Range Interpretation Code Description Data Sumaya rce(s) Supporting Document(s) Prothrombin time (PT) 12.6 SECONDS 11.0 - 15.5 [facility] INR in Platelet poor plasma by Coagulation assay 0.93 0.93 - 1. 23 [facility] aPTT in Blood by Coagulation assay 26.8 SECONDS 24.8 - 36.7 [facility] \\BLDo\\INR INTERPRETATION\\BLDx\\ Therapeutic range for Coumadin and related oral anticoagulants. - International Normalized Ratio (INR): 2.0 - 3.0 for Venous Thrombosis, Pulmonary Embolus, Tissue heart valves, Acute ND Atrial Fibrillation, Valvular heart disease and recurrent Systemic Embolism. - International Normalized Ratio (INR): 2.5 - 3.5 for Mechanical Prosthetic valve. ID Date Data Source [id number] 07/30/2020 04:07:00 PM EDT [facility] Name Value Range Interpretation Code Description Data Sumaya rce(s) Supporting Document(s) Lactate [Moles/volume] in Serum or Plasma 3.0 MMOL/L 0.2 - 2.2 H [facility] ID Date Data Source [id number] 06/03/2020 04:15:00 PM EDT [facility] 1 OrderSheet [facility] Emergency Department [address] [place] [address] Phone #: ext- [phone] 06/03/2020 16:05 Patient: LELAND DIAZ Sex: F : 1980 Age: 40yWEIGHT:68.0 kg HEIGHT:67 inches BMI:23.5ALLERGIES: Levaquin, NSAID, Sulfa AntibioticsCHIEF COMPLAINT: abnormal labDIAGNOSIS: Anemia, Urinary tract infectious diseaseLAB ORDERSOrder Description Priority Entered Acknowledged InitialedBNP STAT 16:22 06/03/2020 16:24 Jeff SIMMONS; Dixon QUINONESCBC w Diff STAT 16:22 06/03/2020 16:24 Jeff SIMMONS; Dixon RNCMP STAT 16:22 06/03/2020 16:24 Jeff SIMMONS; Dixon RNLactic Acid STAT 16:22 06/03/2020 16:24 Jeff SIMMONS; Dixon RNPT/PTT STAT 16:22 [...] Only Tawanda SIMMONS; Dixon RN(Oxygen?(No)) 2 OrderSheet [facility] Emergency Department [address] [place] [address] Phone #: [phone] ezx- [phone] 06/03/2020 16:05 Patient: LELAND DIAZ Sex: F : 1980 Age: 40y(IV?(Yes)) Reason for Study: L sided abd pain, tachycardia, multiple bowel surgeriesCT CTA CHEST STAT 17:01 06/03/2020 17:34 Jeff(NONCOR) W CON Tawanda SIMMONS; Dixon QUINONESINC PP(Oxygen?(No))(IV?(Yes)) Reason for Study: [...] Clinical consideration given -- 16:56 06/03/2020 Tawanda Sol PAMorphine IVP 2 mg 18:33 06/03/2020 18:39 Jeff(NOW x1, keep o2 Tawanda SIMMONS; Dixon RNsat > 90%, HIGHALERTMEDICATION) Reason for ordering with alerts: Clinical consideration given -- 18:33 06/03/2020 Tawanda Sol PAZofran IVP 4 mg 18:33 06/03/2020 18:40 Jeff SIMMONS; Dixon RN 3 OrderSheet [facility] Emergency Department [address] [place] [address] Phone #: ext- [phone] 06/03/2020 16:05 Patient: LELAND DIAZ Sex: F : 1980 Age: 40y Reason for ordering with alerts: Clinical consideration given -- 18:33 06/03/2020 Tawanda Sol PARocephin 19:35 06/03/2020 19:43 Jeff(1gm/50mL) IVPB Tawanda SIMMONS; Dixon [id number] mg withDextrose 50 mlspike bag (D5W) Reason for ordering with alerts: Clinical consideration given -- 19:35 06/03/2020 Tawanda Sol PAGENERAL ORDERSOrder Description Priority Entered Acknowledged InitialedBlood Pressure 16:22 06/03/2020 16:24 JeffMonitor Tawanda SIMMONS; Dixon RNCardiac Monitor 16:22 06/03/2020 16:24 Jeff(continuous) Tawanda SIMMONS; Dixon RNNPO 16:22 06/03/2020 16:24 Jeff SIMMONS; Dixon RNPulse Oximetry 16:22 06/03/2020 16:24 JeffContinuous Tawanda SIMMONS; Dixon RNVitals 16:22 06/03/2020 16:24 Jeff SIMMONS; Dixon RNVitals every 15 16:22 06/03/2020 16:24 Isacc SIMMONS; Dixon QUINONESWarm blanket 16:22 06/03/2020 16:24 Jeff SIMMONS; Dixon RNSaline Lock 16:22 06/03/2020 16:24 Jeff SIMMONS; Dixon Talley Old EKG 16:24 06/03/2020 16:24 Jeff SIMMONS; Dixon RN[Electronically signed by Jeff Metcalf RN (:06/03/2020)][Electronically signed by Tawanda Sol (10:17 06/04/2020)][Electronically locked by Jeff Metcalf RN (06/03/2020)] Name Value Range Interpretation Code Description Data Sumaya rce(s) Supporting Document(s) ID Date Data Source [id number] 06/03/2020 04:15:00 PM EDT [facility] 1 Medication Reconciliation Report [facility] Emergency Department [address] [place] [address] Phone #: ext- [phone] 06/03/2020 16:05 Patient: LELAND DIAZ Sex: F : 1980 Age: 40yWeight: 68.0 kgHeight/Length: 67 in.BMI: 23.5ALLERGIES: Levaquin, NSAID, Sulfa AntibioticsThe patient's Home Medications are listed below:CONTINUE TAKING THE FOLLOWING MEDICATIONS: Ambien Oral 7.5, daily, via J tube, prn,at bedtime Benadryl IV 50mg QDAY for nausea, 2x a day Carafate Oral 1 gm, q4h, via J tube Creon Oral (9826-5720 unit) 1 capsule, 4x a day, J tube Lovenox Subcutaneous (80 mg/0.8mL) 70 mg, 2x a day oxyCODONE HCl Oral 100/5 ml; 1ML, 4x a day, via J tube, prn Protonix Intravenous (40 mg), 2x a day Tylenol Oral, prnTHE FOLLOWING MEDICATIONS NEED TO BE RECONCILED: FLUoxetine HCl Oral 20 mg, daily, via J tube Ondansetron HCl Injection 8 mg I SALES OFFICE COORDINATOR, q8h, prnThe source(s) of the original Home Medication information:patientThe following Medications were given to the patient in the Emergency Department:NS [IV] IV Fluids bolus 0, then 75 mL/hr, administered: 06/03/2020 4:52:00 PM 2 Medication Reconciliation Report [facility] Emergency Department [address] [place] [address] Phone #: ext- [phone] 06/03/2020 16:05 Patient: LELAND DIAZ Sex: F : 1980 Age: 40yMorphine [...] rce(s) Supporting Document(s) ID Date Data Source [id number] 06/03/2020 04:15:00 PM EDT [facility] 1 Medication Administration Record [facility] Emergency Department [address] [place] [address] Phone #: [phone] yst- [phone] 06/03/2020 16:05 [id number] Sex: F : 1980 Age: 40yWeight: 68.0 [...] HIGH Seng Metcalf RN Site: #1 right MEDICATION)Start PROTONIX [...] IVP 4 mg18:40 06/03/2020 Dose: 4 mg IVPPgabriela Metcalf RN Site: #1 rightStart ROCEPHIN (1GM/50ML) [IVPB] Rocephin (1gm/50mL) IVPB [id number] 06/03/2020 (CEFTRIAXONE SODIUM) mg with Dextrose 50 ml spike Zahra Metcalf RN Dose: 1 gm IVPB (D5W)---- Rate: 100 mL/hr over 30 minute(s)Stop Dispensed: 50 mL bag20:05 06/03/2020 Site: #1 Gavino Metcalf RN Name Value Range Interpretation Code Description Data Sumaya rce(s) Supporting Document(s) ID Date Data Source [id number] 06/03/2020 04:15:00 PM EDT [facility] 1 General Instructions [facility] Emergency Department [address] [place] [address] Phone #: ext- [phone] 06/03/2020 16:05 [facility]: [id number] Sex: F : 1980 Age: 40yAnemia (chronic [...] tube.Creon Oral : Capsule Delayed Release Particles 5469-5611 unit, 1 capsule 4x a day, J [...] referral: evaluation and f/u with [facility] in [place] as scheduled for further evaluation of anemiawith [...] may be because of: 2 General Instructions [facility] Emergency Department [address] [place] [address] Phone #: [phone]- [phone] 06/03/2020 16:05 Patient: LELAND DIAZ Sex: F : 1980 Age: 40y [...] own healthcare provider to get the results.Call [phone] or get immediate medical care if any of the following occur: Shortness of breath or chest pain Dizziness or fainting gets worse Vomiting blood or passing red or black-colored stool [id number] [employer]. [address] [place] [address]. All rights reserved. This information is not intended as asubstitute for professional medical care. Always follow your healthcare professional's instructions.Bladder Infection, Female (Adult) 3 General Instructions [facility] Emergency Department [address] [place] [address] Phone #: ext- [phone] 06/03/2020 16:05 Patient: LELAND DIAZ Sex: F : 1980 Age: 40yUrine [...] out Blood in urine 4 General Instructions [facility] Emergency Department [address] [place] [address] Phone #: ext- [phone] 06/03/2020 16:05 Patient: LELAND DIAZ Sex: Charlie : 1980 Age: 40y Abdominal discomfort. This [...] more serious kidney infection. 5 General Instructions [facility] Emergency Department [address] [place] [address] Phone #: ext- [phone] 06/03/2020 16:05 Patient: LELAND DIAZ Sex: F : 1980 Age: 40yMedicinesMedicines [...] find out the results. 6 General Instructions [facility] Emergency Department [address] [place] [address] Phone #: ext- [phone] 06/03/2020 16:05 Patient: LELAND DIAZ Sex: F : 1980 Age: 40yIf X-rays were done, you will be told if the results will affect your treatment.Call 911Call 911 if any of the following occur: Trouble [...] swelling in the outer vaginal area (labia) [id number] [employer]. [address] [place] [address]. All rights reserved. This information is not intended as asubstitute for professional medical care. Always follow your healthcare professional's instructions. You have been given the following additional information: Anemia, Type Not Specified (Adult) Bladder Infection, Female (Adult)(Electronically signed by TROY Andres 06/04/2020 10:17) Name Value Range Interpretation Code Description Data Sumaya rce(s) Supporting Document(s) ID Date Data Source [id number] 06/03/2020 04:15:00 PM EDT [facility] 1 Clinical Report - Nurses [facility] Emergency Department [address] [place] [address] Phone #: ext- [phone] 06/03/2020 16:05 Patient: LELAND DIAZ Sex: F : 1980 Age: 40yTRIAGEArrived by private vehicle. Historian: patient. Accompanied by family. ( pt has chronic GI bleed and GIissues. Pt reports she has a port (double lumen ) to right upper chest wall. Pt is TPN dependent yanifranko poor vascular access. Pt usually gets blood transfusions though port. pt uses port daily. pt heparinin am. Hgb of 8 per patient.).Triage time: 16:08 06/03/2020. Acuity: LEVEL 3.Chief Complaint: ABNORMAL LAB.Alert. ( pt reports chronic generalized pain).Onset. (pt called today by dr wyatt). The patient has had weakness and difficulty breathing.Treatment TREATING PLANT PUMPER:None. --16:13 06/03/20 Wanda Berger R.N.16:08 06/03/20. BP: [...] tube. Creon Oral (Capsule Delayed Release Particles 3031-6455 unit) 1 capsule, 4x a day, J [...] hysterectomy. Denies 2 Clinical Report - Nurses [facility] Emergency Department [address] [place] [address] Phone #: ext- [phone] 06/03/2020 16:05 Patient: LELAND DIAZ Sex: F : 1980 Age: 40y current [...] catheter to 3 Clinical Report - Nurses [facility] Emergency Department [address] [place] [address] Phone #: ext- [phone] 06/03/2020 16:05 Patient: LELAND DIAZ Sex: F : 1980 Age: 40yright anterior chest). --16:25 06/03/20 Surekha Leonardo ID band checked for patient name and [...] saturation: 97%. --18:19 06/03/20 Shobha Neil ER Tech118:39 06/03/2020 Morphine IVP 2 mg given over 2 minute(s) via site #1. Allergies verified and confirmed 5rights. IV patency established. IV site checked: no pain, redness, or swelling. IV flushed thoroughly pre- 4 Clinical Report - Nurses [facility] Emergency Department [address] [place] [address] Phone #: ext- [phone] 06/03/2020 16:05 Patient: LELAND DIAZ Sex: F : 1980 Age: 40y [...] of bed on. --19:30 06/03/20 Jace Najera RKylah. 19:43 06/03/2020 Started 1 gm of ROCEPHIN [...] pain, redness, or swelling. IV flushed thoroughly. --20:20 06/03/20 Jeff Metcalf RN 20:05 06/03/2020 ROCEPHIN (1GM/50ML) IVPB via IV site #1 Discontinued: infused. Total amount infused: 50 mL. IV patency established. IV site checked: no pain, redness, or swelling. IV flushed thoroughly. --20:20 06/03/20 Jeff Metcalf RN 20:19 06/03/2020 Site #1 removed (flushed each port with 300 units of heparin). --20:19 06/03/20 Jeff Metcalf RN.DISPOSITION / DISCHARGE 19:06/03/20. BP: 10 5/61. MAP: 75. HR: 93. RR: 19. O2 saturation: 100%. Temp: 98.1 F. --19:29 06/03/20 Brittany Fong RN Condition at departure: improved and stable. Discharge instructions provided and reviewed with the patient. Patient verbalized understanding. Written instructions provided in Panamanian. 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 She was discharged home and accompanied by spouse. She left ambulatory and via private vehicle. Spouse driving. --20:20 06/03/20 Jeff Metcalf RN 20:21 06/03/20. Pain level now: 03/30. --20:21 06/03/20 Jeff Metcalf RN.Locked/Released at 06/03/2020 20:21 by Jeff Metcalf RN Name Value Range Interpretation Code Description Data Sumaya rce(s) Supporting Document(s) ID Date Data Source [id number] 06/03/2020 04:15:00 PM EDT [facility] 1 Clinical Report - Physicians/Mid Levels [facility] Emergency Department [address] [place] [address] Phone #: ext- [phone] 06/03/2020 16:05 Patient: LELAND DIAZ Sex: F : 1980 Age: 40y [...] Has had majority of bowel surgeries at [facility], is TPN dependent, port L chest. [...] Constipation. 2 Clinical Report - Physicians/Mid Levels [facility] Emergency Department [address] [place] [address] Phone #: ext- [phone] 06/03/2020 16:05 Patient: LELAND DIAZ Sex: F : 1980 Age: 40yAnemia.Back Pain.Sepsis [...] J tube.Creon Oral (Capsule Delayed Release Particles 5099-3143 unit) 1 capsule, 4x a day, J tube.FLUoxetine HCl Oral 20 mg, daily, via J tube. 3 Clinical Report - Physicians/Mid Levels [facility] Emergency Department [address] [place] [address] Phone #: ext- [phone] 06/03/2020 16:05 Patient: LELAND DIAZ Sex: F : 1980 Age: 40y [...] the 4 Clinical Report - Physicians/Mid Levels [facility] Emergency Department [address] [place] [address] Phone #: ext- [phone] 06/03/2020 16:05 Patient: LELAND DIAZ Sex: F : 1980 Age: 40ymedical decision making process.CT CTA CHEST NON- CORONARY W CON INC PP: (LUISANA: 06/03/2020 17:01) ( [facility] [place] 06[facility] 19:15) InProgressCT CTA CHEST NON-CORONARY W CON INC PPReason(s): tachycardia, SOB, prior hx PETRANSPORTATION: S IV? IV?(Yes) O2? Oxygen?(No) RoCT Abd PEL W/ IV Contrast Only: (LUISANA: 06/03/2020 16:48) ( MsgRcvd 06/03/2020 19:15) In ProgressCT ABDReason(s): L sided abd pain, tachycardia, multiple bowel surgeriesTRANSPORTATION: S IV? IV?(Yes) O2? Oxygen?(No) RoOccult Blood Stool Diagnostic 1 slide: (LUISANA: 06/03/2020 15:30) ( MsgRcvd 06/03/2020 18:24)Final results Test Result Flag Units (Reference) OCCULT BLOOD NEGATIVE (NORMAL: NEGAT OCCULT BLOOD REENTER NEGATIVE (NORMAL: NEGAT { HEMOCCULT LOT # [id number] ){ LOT EXP [id number] ){ PROCEDURAL CONTROL POS/NEG VALID)D-Dimer: (LUISANA: 06/03/2020 16:34) ( MsgRcvd 06/03/2020 17:56) Final results Test Result Flag Units (Reference) D-DIMER QUANT <0.27 ug/mL (0.27 - 0.50)BNP: (LUISANA: 06/03/2020 16:34) ( MsgRcvd 06/03/2020 17:12) Final results Test Result Flag Units (Reference) BNP 15 PG/ML (0 - 125)CBC w Diff: (LUISANA: 06/03/2020 16:34) ( MsgRcvd 06/03/2020 16:53) Final results Test Result Flag [...] 6.90) 5 Clinical Report - Physicians/Mid Levels [facility] Emergency Department [address] [place] [address] Phone #: ext- [phone] 06/03/2020 16:05 [facility]: [id number] Sex: F : 1980 Age: 40y #LYMPH [...] Male GFR Interprentation 20-49 yrs >60 mL/min Wrbbjw24-91 yrs >56 mL/min Normal 60-69 yrs >49 mL/min Normal 70-79yrs>42 mL/min Normal 80 and above >35 mL/min Normal Female GFRInterpretation 20-39 yrs >60 mL/min Normal 40-49 yrs >58 mL/minNormal 50-59 yrs >51 mL/min Normal 60-69 yrs >45 mL/min Tikwoz19-92 yrs >39 mL/min Normal 80 and above >32 mL/min NormalLactic Acid: (LUISANA: 06/03/2020 16:34) ( IagRcvd 06/03/2020 16:45) Final results Test Result Flag Units (Reference) LACTIC ACID 2.4 H MMOL/L (0.2 - 2.2)PT/PTT: (LUISANA: 06/03/2020 16:34) ( MsgRcvd 06/03/2020 17:31) Final results Test Result Flag Units (Reference) PROTIME 12.4 SECONDS (11.0 - 15.5) INR 0.91 L (0.93 - 1.23) PTT 25.8 SECONDS (24.8 - 36.7) \\BLDo\\INR INTERPRETATION\\BLDx\\ Therapeutic range for Coumadin andrelated oral anticoagulants. -International Normalized Ratio (INR): 2.0 - 3.0 for VenousThrombosis, Pulmonary Embolus, Tissue heart valves, Acute ND Atrial Fibrillation, Valvular heart diseaseand recurrent Systemic Embolism. -International Normalized Ratio (INR): 2.5 - 3.5 forMechanical Prosthetic valve. 6 Clinical Report - Physicians/Mid Levels [facility] Emergency Department [address] [place] [address] Phone #: ext- [phone] 06/03/2020 16:05 Patient: LELAND DIAZ [facility]#: [id number] Sex: F : 1980 Age: 40y Troponin-T: (LUISANA: 06/03/2020 16:34) ( [facility] 06/03/2020 17:00) Final results Test Result Flag Units (Reference) TROPONIN T <0.01 NG/ML (0.00 - 0.10) TROPONIN T0.1 ng/ml Recommended as the clinical threshold value forTroponin T. Urinalysis: (LUISANA: 06/03/2020 18:20) ( [facility] 06/03/2020 19:02) Final results Test Result Flag [...] Type and Screen: (LUISANA: 06/03/2020 16:34) ( [facility] 06/03/2020 18:02) Final results Test Result Flag [...] clinical 7 Clinical Report - Physicians/Mid Levels [facility] Emergency Department [address] [place] [address] Phone #: ext- [phone] 06/03/2020 16:05 Patient: LELAND DIAZ Sex: F : 1979 Age: 40y [...] Creon Oral : Capsule Delayed Release Particles [id number] unit, 1 capsule 4x a day, J [...] referral: evaluation and f/u with [facility] in [place] as scheduled for further evaluation of anemia [...] Name Value Range Interpretation Code Description Data [facility](s) Supporting Document(s) ID Date Data Source [id number] 06/03/2020 04:15:00 PM EDT [facility] VisitID: [id number] Date: 10:04Lab results reviewed by Dr Fong. Urine culture sensitvity results show Proteus mirabilis/qhmvynk38,000-25,000 cfu/ml Patient was given Rocephin in ED. Cell count low no further treatment required.(Electronically signed by Zenaida Riggins RN - 06/09/2020 10:04) Name Value Range Interpretation Code Description Data [facility](s) Supporting Document(s) ID Date Data Source [id number] 06/06/2020 08:09:00 [place] [address] PHONE: [phone] FAX: [phone] [facility] ........[id number] ROOM. ............: TR-03 Number ............................: [id number] Stay type.........: E/R Discharge Date...............:06/03/20 Admit Date .....: 06/03/20 Admit Phys .............................: DESIREE CESPEDES Date of ..: 1980 Family Phys ...........................: [facility] Phone..............: [phone] Age.................................:40 Film# ...............:[id number] Sex.................................:F Unsigned transcriptions are preliminary reports and do [place] represent [id number] COMPLETE:06/04/20 08:23 [facility] [id number] Please See Scanned Results. Name Value Range Interpretation Code Description Data Sumaya rce(s) Supporting Document(s) ID Date Data Source [id number] 06/06/2020 02:08:00 [place] [address] PHONE: [phone] FAX: [phone] Name .................. : BASILIO Torres Acct Number.................. : [id number] ROOM. ................. : TR-03 MR Number ................... : [id number] Stay type ............. : E/R Discharge Date......... ... : 06/03/20 Admit Date ......... : 06/03/20 Admit Phys .................... : LENOREJEANE CESPEDES Date of ....... : 1980 Family Phys ................... : MITA ROCHE Phone .................. : [phone] Age ................................ : 40 Film# .................. .:[id number] Sex ................................. : F Unsigned transcriptions are preliminary reports and do not represent a medical or legal document CT ABD & PELVIS W/ IV ONLY [id number] COMPLETE:06/03/20 19:15 RLB [id number] Reason(s): L sided abd pain, t achycardia, [...] dose: 750.2 mGycm Page 1 of 2 [facility] [address] [place] [address] PHONE: [phone] FAX: [phone] Name .................. : BASILIO Torres Acct Number.................. : [id number] ROOM. ................. : TR-03 MR Number ................... : [id number] Stay type ............. : E/R Discharge Date......... ... : 06/03/20 Admit Date ......... : 06/03/20 Admit Phys .................... : DESIREE CESPEDES Date of ....... : 1980 Family Phys ................... : TAJKHOI ROCHE Phone .................. : [phone] Age ................................ : 40 Film# .................. .:[id number] Sex ................................. : F Unsigned transcriptions are preliminary reports and do not represent a medical or legal document CT ABD & PELVIS W/ IV ONLY [id number] COMPLETE:06/03/20 19:15 RLB [id number] Reason(s): L sided abd pain, tachycardia, multiple [...] rce(s) Supporting Document(s) ID Date Data Source [id number] 06/06/2020 02:08:00 PM EDT [facility] [address] [place] [address] PHONE: [phone] FAX: [phone] Name .................. : BASILIO Torres Acct Number.................. : [id number] ROOM. ................. : TR03 MR Number ................... : [id number] Stay type ............. : E/R Discharge Date......... ... : 06/03/20 Admit Date ......... : 06/03/20 Admit Phys .................... : DESIREE CESPEDES Date of ....... : 1980 Family Phys ................... : TAJKHOI KA Phone .................. : [phone] Age ................................ : 40 Film# .................. .:[id number] Sex ................................. : F Unsigned transcriptions are preliminary reports and do not represent a medical or legal document CT CTA CHEST NON-CORONARY W [place] [address] COMPLETE:06/03/20 19:15 RLB [id number] Reason(s): tachycardia, SOB, prior hx PE CTA [...] Method of administration: Intravenous [address] [place] [address] PHONE: [phone] FAX: [phone] Name .................. : BASILIO DAN Melissa Acct Number.................. : [id number] ROOM. ................. : TR-03 MR Number ................... : [id number] Stay type ............. : E/R Discharge Date......... ... : 06/03/20 Admit Date ......... : 06/03/20 Admit Phys .................... : DESIREE CESPEDES Date of ....... : 1980 Family Phys ................... : MITA ROCHE Phone .................. : [phone] Age ................................ : 40 Film# .................. .:[id number] Sex ................................. : F Unsigned transcriptions are preliminary reports and do not represent a medical or legal document CT CTA CHEST NON-CORONARY W C 30475 COMPLETE:06/03/20 19:15 RLB [id number] Reason(s): tachycardia, SOB, prior hx PE Electronically Reviewed and Signed By Eleuterio Dukes M.D. , 06/06/20 14:08, [facility] Transcribe Initials: DZ , Transcribe Date: 06/04/20 10:09, Dictation Date: Copy for: EBENEZER Morales via fax Copy for: EMERGENCY DEPT via modem Copy for: 710 MED REC DISCHARGED Page 2 of 2 Name Value Range Interpretation Code Description Data Sumaya rce(s) Supporting Document(s) ID Date Data Source [id number] 06/09/2020 10:19:00 AM EDT [facility] Name Value Range Interpretation Code Description Data [facility] rce(s) Supporting Document(s) CULTURE URINE [facility] Ho spital CORRECTE D REPORT _CULTURE URINE_$$[id number]$$[id number]$$350742$$833406$$669874$$257892$$614484$$494773$$547263$$ 561048$$559489$$634225$$71043 5$$475824$$577351$$759383$$375494$$731399$$530406$$568043$$270824$$678493$$19034 7$$045715$$160871$$438440 -- Continued on next page --Patient: BASILIO Torres Order: [id number] Page 2Culture: CULTURE URINE Status: Final ====$$[id number] -- Continued on next page --Patient: BASILIO Torres Order: [id number] Page 2Culture: CULTURE URINE Status: Prel im = -- Continued on next page --Patient: BASILIO Torres Order: [id number] Page 2Culture: CULTURE URINE Status: Prelim =====$$[id number]$$[id number] DATE/TIME: 06/09/2020 10:07Culture: CULTURE URINE Status: FinalIsolate [...] on 06/07/2020 06:05 ET Proteus mirabilis/penneriUrine Culture,Comprehensive: [id number] mirabilis/penneri Flag: AIsolate 2 Escherichia coli Flag: [...] on next page --Patient: BASILIO Torres Order: [id number] Page 3Culture: CULTURE URINE Status: Final===== Gram negative rodsEscherichia coli Flag: APatient: BASILIO Torres Order: [id number] Page 4Culture: CULTURE URINE Status: Final ====ISOLATE [...] Trimethoprim/Sulfa S S P1 Test performed by: [facility] #: [id number] [address] [facility] [id number] [facility] [id number] Director : Pascual Ceballos MD NPI #:Manager Money : 06/07/20.1830.XMT.SENT REF FOLLOWING RESULTS REPORTED IN ERROR REPORTED DATE/TIME: 06/07/2020 06:06 CORRECT FINAL REPORT [facility] REPORTED DATE/TIME: 06/08/2020 15:06Isol ate 2 Gram [...] S S . . . . . .55688-3Vddxboqjwr S S . . . . . .267-5Levofloxacin S S . . . . . .15661-0Kykcrobwj S S . . . . . .6652-2Nitrofurantoin R R . . . . . .363- 2Piperacillin/Tazobactam S S . . . . . .412-7Tetracycline R R . . . . . .496-0Tobramycin S S . . . . . .508-2Trimethoprim/Sulfa S S . . . . . .516-5 ID Date Data Source [id number] 06/03/2020 07:02:00 PM EDT [facility] Name Value Range Interpretation Code Description Data [facility] rce(s) Supporting Document(s) [facility] R [facility] COL[facility] yellow NORMAL: Yellow [facility] CLARITY hazy NORMAL: Clear [facility] Specific gravity of Urine by Test strip 1.010 1.001 - 1.030 [facility] pH 6.5 5 - 9 [facility] Glucose [Mass/volume] in Urine by Test strip NORM NORMAL: Negat [facility] Bilirubin.total [Presence] in Urine by Test strip NEG NORMAL: Negative [facility] Ketones [Presence] in Urine by Test strip NEG NORMAL: Negative [facility] Protein [Mass/volume] in Urine by Test strip 15 [facility] Nitrite [Presence] in Urine by Test strip NEG NORMAL: Negative [facility] BLOOD 10 NORMAL: Negative [facility] Leukocyte esterase [Presence] in Urine by Test strip 25 DELANO L: Negative [facility] Urobilinogen [Mass/volume] in Urine by Test strip NOR less tenisha n 1.0 mg/dL [facility] MICROSCOPIC See Below [facility] ital WBC 0 - 1 NORMAL: NONE SEEN [facility] Erythrocytes [#/volume] in Urine by Test strip 0 - 1 NORMAL: NON E SEEN [facility] EPITHELIAL MODERATE NORMAL: NONE SEEN [facility] Bacteria [Presence] in Urine sediment by Light microscopy Tr nick NORMAL: NONE SEEN [facility] ID Date Data Source [id number] 06/03/2020 06:02:00 PM EDT [facility] Name Value Range Interpretation Code Description Data [facility] rce(s) Supporting Document(s) ABO group [Type] in Blood O [facility] Rh [Type] in Blood NEGATIVE [facility] AB SCREEN NEGATIVE NORMAL: NEGATIVE [facility] { ABO/RH REENTER O NEGATIVE{ AB SCREEN RE-ENTER NEGATIVE ID Date Data Source [id number] 06/03/2020 05:56:00 PM EDT [facility] Name Value Range Interpretation Code Description Data [facility] rce(s) Supporting Document(s) Fibrin D-dimer FEU [Mass/volume] in Platelet poor plasma <0. 27 ug/mL 0.27 - 0.50 [facility] ID Date Data Source [id number] 06/03/2020 05:31:00 PM EDT [facility] Name Value Range Interpretation Code Description Data [facility] rce(s) Supporting Document(s) Prothrombin time (PT) 12.4 SECONDS 11.0 - 15.5 [facility] INR in Platelet poor plasma by Coagulation assay 0.91 0.93 - 1. 23 L [facility] aPTT in Blood by Coagulation assay 25.8 SECONDS 24.8 - 36.7 [facility] \\BLDo\\INR INTERPRETATION\\BLDx\\ Therapeutic range for Coumadin and related oral anticoagulants. - International Normalized Ratio (INR): 2.0 - 3.0 for Venous Thrombosis, Pulmonary Embolus, Tissue heart valves, Acute ND Atrial Fibrillation, Valvular heart disease and recurrent Systemic Embolism. - International Normalized Ratio (INR): 2.5 - 3.5 for Mechanical Prosthetic valve. ID Date Data Source [id number] 06/03/2020 05:12:00 PM EDT [facility] Name Value Range Interpretation Code Description Data [facility] rce(s) Supporting Document(s) BNP 15 PG/ML 0 - 125 [facility] ID Date Data Source [id number] 06/03/2020 05:00:00 PM EDT [facility] Name Value Range Interpretation Code Description Data [facility] rce(s) Supporting Document(s) TROPONIN T <0.01 NG/ML 0.00 - 0.10 [facility] ospital TROPONIN T0.1 ng/ml Recommended as the c linical threshold value forTroponin T. ID Date Data Source [id number] 06/03/2020 05:00:00 PM EDT [facility] Name Value Range Interpretation Code Description Data [facility] rce(s) Supporting Document(s) COMPREHENSIVE METABOLIC PANEL [facility] COMPREHENSIVE METABOLIC PANEL Sodium [Moles/volume] in Serum or Plasma 139 mEq/L 134 - 153 [facility] Potassium [Moles/volume] in Serum or Plasma 3.6 mEq/L 3.6 - 5.0 [facility] Chloride [Moles/volume] in Serum or Plasma 104 mEq/L 98 - 107 [facility] Carbon dioxide, total [Moles/volume] in Serum or Plasma 22 MEQ/L 22 - 30 [facility] Glucose [Mass/volume] in Serum or Plasma 127 MG/DL 65 - 110 H [facility] BUN 9 MG/DL 7 - 21 [facility] al Creatinine [Mass/volume] in Serum or Plasma 0.7 MG/DL 0.7 - 1.5 [facility] BUN/CREAT 13 8 - 27 [facility] al Protein [Mass/volume] in Serum or Plasma 6.5 G/DL 6.3 - 8.2 [facility] Albumin [Mass/volume] in Serum or Plasma 4.3 G/DL 3.9 - 5.0 [facility] Globulin [Mass/volume] in Serum by calculation 2.2 GM/DL 2.4 - 3.2 L [facility] A/G RATIO 2.0 0.8 - 2.0 [facility] Calcium [Mass/volume] in Serum or Plasma 9.2 MG/DL 8.4 - 10.2 [facility] Bilirubin.total [Mass/volume] in Serum or Plasma <0.7 MG/DL 0.2 - 1.3 [facility] Alkaline phosphatase [Enzymatic activity/volume] in Serum or Plasma 81 U/L 38 - 126 [facility] Aspartate aminotransferase [Enzymatic activity/volume] in Serum or Plasma 12 U/L 5 - 40 [facility] Alanine aminotransferase [Enzymatic activity/volume] in Seru m or Plasma 14 U/L 7 - 56 [facility] Anion gap 3 in Serum or Plasma 13.0 mmol/L 8.0 - 16.0 [facility] AGE 40 yrs [facility] NON-AA GFR >60 mL/min [facility] ital AFR AMER GFR >60 mL/min [facility] Male GFR In terprentation [...] >32 mL/min Normal ID Date Data Source [id number] 06/03/2020 04:53:00 PM EDT [facility] Name Value Range Interpretation Code Description Data [facility] rce(s) Supporting Document(s) CBC W/AUTOMATED DIFF [facility] COMPLETE BLOOD COUNT Leukocytes [#/volume] in Blood by Automated count 9.0 10^3/uL 4.2 - 1 1.0 [facility] Erythrocytes [#/volume] in Blood by Automated count 3.46 10^6/uL 4. 20 - 5.40 L [facility] Hemoglobin [Mass/volume] in Blood 9.1 g/dL 12.0 - 16.0 L [facility] Hematocrit [Volume Fraction] of Blood by Automated count 28.3 % 3 7.0 - 47.0 L [facility] Erythrocyte mean corpuscular volume [Entitic volume] by Auto mated count 81.8 fL 81.0 - 101 [facility] Erythrocyte mean corpuscular hemoglobin [Entitic mass] by Automated count 26.3 pg 27.0 - 34.0 L [facility] Erythrocyte mean corpuscular hemoglobin concentration [Mass/volume] by Automated count 32.2 g/dL 31.0 - 36.0 [facility] Erythrocyte distribution width [Ratio] by Automated count 15.4 % 11.5 - 14.5 H [facility] Platelets [#/volume] in Blood by Automated count 465 10^3/uL 150 - 45 0 H [facility] Platelet mean volume [Entitic volume] in Blood by Automated count 9.0 fL 7.4 - 10.4 [facility] Neutrophils/100 leukocytes in Blood by Automated count 66.4 % 37. 0 - 80.0 [facility] Lymphocytes/100 leukocytes in Blood by Manual count 22.3 % 25.0 - 40.0 L [facility] Monocytes/100 leukocytes in Blood by Automated count 7.9 % 3.0 - 8.0 [facility] Eosinophils/100 leukocytes in Blood by Automated count 2.4 % 0.0 - 7.0 [facility] Basophils/100 leukocytes in Blood by Automated count 0.6 % 0.0 - 2.5 [facility] %IG 0.4 % 0.0 - 0.0 [facility] %NRBC 0.0 % 0.0 - 0.0 [facility] al Neutrophils [#/volume] in Blood by Automated count 5.98 10^3/uL 2.00 - 6.90 [facility] Lymphocytes [#/volume] in Blood by Automated count 2.01 10^3/uL 0.60 - 3.40 [facility] Monocytes [#/volume] in Blood by Automated count 0.71 10^3/uL 0.00 - 0.90 [facility] Eosinophils [#/volume] in Blood by Automated count 0.22 10^3/uL 0.00 - 0.70 [facility] Basophils [#/volume] in Blood by Automated count 0.05 10^3/uL 0.00 - 0.20 [facility] #IG 0.04 10^3/uL 0.00 - 0.10 [facility] ospital #NRBC 0.00 10^3/uL 0.00 - 0.00 [facility] o[facility]ital MANUAL DIFF NOT INDICATED [facility] RBC MORPH NOT INDICATED [facility] ID Date Data Source [id number] 06/03/2020 04:45:00 PM EDT [facility] Name Value Range Interpretation Code Description Data [facility] rce(s) Supporting Document(s) Lactate [Moles/volume] in Serum or Plasma 2.4 MMOL/L 0.2 - 2.2 H [facility] ID Date Data Source [id number] 06/03/2020 06:24:00 PM EDT [facility] Name Value Range Interpretation Code Description Data [facility]aya rce(s) Supporting Document(s) OCCULT BLOOD NEGATIVE NORMAL: NEGATIVE [facility] OCCULT BLOOD REENTER NEGATIVE NORMAL: NEGATIVE [facility] { HEMOCCULT LOT # [id number] ){ LOT EXP DATE 07-20-21 ){ PROCEDURAL CONTROL POS/NEG VALID ) ID Date Data Source [id number] 06/02/2020 01:06:00 PM EDT [facility] [address] [place] [address] PHONE: [phone] FAX: [phone] Name .................. : BASILIO Torres Acct Number.................. : [id number] [facility]. ................. [facility] Number ................... : [id number] Stay type ............. : E/R Discharge Date......... ... : Admit Date ......... : 05/31/20 Admit Phys .................... : DAREK Date of ....... : 1980 [facility] Phone .................. : [phone] Age ................................ : 40 Film# .................. .:[id number] Sex ................................. : F Unsigned transcriptions are preliminary reports and do not represent a medical or legal document CHEST PORTABLE [id number] COMPLETE:05/31/20 21:34 RLB [id number] Reason(s): Shortness of Breath PORTABLE CHEST X-RAY: INDICATION: Shortness of breath. FINDINGS: There is a right IJ tunnel catheter with the tip in the SVC. The lungs are clear. The cardiac silhouette is normal in size and contour. No acute osseous abnormality. IMPRESSION: No acute pulmonary process. Electronically Reviewed and Signed By Eleuterio Dukes M.D. , 06/02/20 13:06, [place] Transcribe Initials: BECK , Transcribe Date: 05/31/20 21:44, Dictation Date: Copy for: DAREK LUCAS via fax Copy for: EMERGENCY DEPT via modem Copy for: 710 MED REC DISCHARGED Page 1 of 1 Name Value Range Interpretation Code Description Data [facility] rce(s) Supporting Document(s) ID Date Data Source [id number] 06/01/2020 08:14:00 [place] [address] PHONE: [phone] FAX: [phone] [facility] ........[facility]......: [id number] ROOM. ............: TR-07 Number ............................: [id number] Stay type.........: E/R Discharge Date...............:05/31/20 Admit Date .....: 05/31/20 Admit Phys .............................: ........................DAREK Date of ..: 1980 Family Phys ...........................: MITA ROCHE Phone..............: [phone] Age............. ....................:40 Film# ...............:[id number] Sex.................................:F Unsigned transcriptions are preliminary reports and do not represent a medical or legal document EKG [id number] COMPLETE:06/01/20 03:28 [place] [address] Please See Scanned Results. Name Value Range Interpretation Code Description Data [facility] rce(s) Supporting Document(s) ID Date Data Source [id number] 05/31/2020 07:27:00 PM EDT [facility] 1 OrderSheet [facility] Emergency Department [address] [place] [address] Phone #: ext- [phone] 05/31/2020 19:25 Patient: LELAND DIAZ Sex: F : 1980 Age: 40yWEIGHT:68.0 kg (S) HEIGHT:67 inches (S) BMI:23.5ALLERGIES: Levaquin, NSAID, Sulfa AntibioticsCHIEF COMPLAINT: palpitationsDIAGNOSIS: Sinus tachycardiaLAB ORDERSOrder Description Priority Entered Acknowledged InitialedBlood Culture STAT 20:01 05/31/2020 20:07 Hyxzoxvx76y X2 (Reza Oswald hogshead salvageRamakrishna Lee ER20:01 05/31/2020) PA; Qawk0Qcjxi Culture STAT 20:05/31/2020 21:03 Xbwoxr23h X2 (Sched Mikey Metcalf RN20:11 05/31/2020) PA;CBC w Diff STAT 20:05/31/2020 20:07 [facility] Tech, Ramakrishna ER PA; Kapy2TXM STAT 20:01 05/31/2020 20:07 [facility] Tech, Ramakrishna ER PA; Syfv4XV/PTT STAT 20:05/31/2020 20:07 [facility] hogshead salvage, Ramakrishna ER PA; Ukev5Ijslab Acid STAT 20:05/31/2020 20:07 [facility] Tech, Ramakrishna ER PA; Paoc3Aovmddykvl (Clean STAT 20:05/31/2020 20:32 Melissa) Mikey Metcalf RN PA;Troponin-T STAT 20:05/31/2020 20:07 [facility], Ramakrishna ER PA; Fcff8R-Rylxq STAT 20:16 05/31/2020 20:23 Jeff Metcalf RN PA;TSH STAT 22:04 05/31/2020 22:23 Jeff Metcalf RN PA; 2 OrderSheet [facility] Emergency Department [address] [place] [address] Phone #: ext- [phone] 05/31/2020 19:25 Patient: LELAND DIAZ Sex: F : 1980 Age: 40yDIAGNOSTIC STUDY ORDERSOrder Description Priority Entered Acknowledged InitialedChest Portable 1 STAT 20:05/31/2020 20:11 Darshana Metcalf RN(Oxygen?(No)) PA; Reason for Study: Shortness of BreathMEDICATION/IV/DRIP/FLUID ORDERSOrder Description Priority Entered Acknowledged InitialedIV NS : Bolus 500 20:05/31/2020 20:14 PeterJim, then 150 mL/hr Mikey Metcalf RN PA;Zofran ODT PO 8 20:01 05/31/2020 20:14 Christian Metcalf RN PA;Ativan IVP 2 mg 20:16 05/31/2020 20:27 Jeff(HIGH ALERT Mikey Metcalf RNMEDICATION) PA; Reason for ordering with alerts: Clinical consideration given -- 20:16 05/31/2020 Mikey Plascencia rth PAMorphine IVP 4 mg 20:45 05/31/2020 20:48 Jeff(HIGH ALERT Mikey Metcalf RNMEDICATION) PA;KCl Liquid PO 40 21:33 05/31/2020 22:01 kathrin Knowles R.N. PA;Dilaudid IVP 1 mg 21:38 05/31/2020 21:43 Jeff(HIGH ALERT Mikey Metcalf RNMEDICATION) PA;Metoprolol PO 25 22:04 05/31/2020 22:17 Christian Metcalf RN PA;GENERAL ORDERSOrder Description Priority Entered Acknowledged InitialedBlood Pressure 20:01 05/31/2020 20:07 [facility] hogshead salvage, Ramakrishna ER PA; Uniz6Rnenusd Monitor 20:01 05/31/2020 20:07 Welches(continuous) [facility] hogshead salvage, Ramakrishna ER PA; Kkxw1BDH 20:01 05/31/2020 20:07 [facility] hogshead salvage, Ramakrishna ER 3 OrderSheet [facility] Emergency Department [address] [place] [address] Phone #: ext- [phone] 05/31/2020 19:25 Patient: LELAND DIAZ Sex: F : 1980 Age: 40y PA; Ekrd9Imbfb oximeter 20:01 05/31/2020 20:07 Welches(Continuous) [facility] hogshead salvage, Ramakrishna SIMMONS; Sfsy6Gjsklf Lock 20:05/31/2020 20:11 Jeff SIMMONS;Vitals 20:05/31/2020 20:07 Nathan Oswald hogshead salvageRamakrishna; Tech1[Electronically signed by Jeff Metcalf RN (22:28 05/31/2020)][Electronically signed by Mikey Oswald (07:34 06/01/2020)][Electronically locked by Jeff Metcalf RN (:05/31/2020)] Name Value Range Interpretation Code Description Data [facility] rce(s) Supporting Document(s) ID Date Data Source [id number] 05/31/2020 07:27:00 PM EDT [facility] 1 Medication Reconciliation Report [facility] Emergency Department [address] [place] [address] Phone #: ext- [phone] 05/31/2020 19:25 Patient: LELAND DIAZ Sex: F : 1980 Age: 40yWeight: 68.0 kgHeight/Length: 67 in.BMI: 23.5ALLERGIES: Levaquin, NSAID, Sulfa AntibioticsThe patient's Home Medications are listed below:THE FOLLOWING MEDICATIONS NEED TO BE RECONCILED: Ambien Oral 7.5, daily, via J tube, prn,at bedtime Benadryl IV 50mg QDAY for nausea, 2x a day Carafate Oral 1 gm, q4h, via J tube Creon Oral (6884-3000 unit) 1 capsule, 4x a day, J [...] 05/31/2020 8:27:00 PM 2 Medication Reconciliation Report [facility] Emergency Department [address] [place] [address] Phone #: ext- [phone] 05/31/2020 19:25 Patient: LELAND DIAZ Sex: F : 1980 Age: 40yMorphine [IVP] IVP 4 mg, administered: 05/31/2020 8:48:00 PMDilaudid [IVP] IVP 1 mg, administered: 05/31/2020 9:43:00 PMKCL LIQUID PO PO 40 meq, administered: 05/31/2020 9:51:00 PMMetoprolol [PO] PO 25 mg, administered: 05/31/2020 10:17:00 PMThe following Medications were prescribed to the patient:None. Name Value Range Interpretation Code Description Data [facility]aya rce(s) Supporting Document(s) ID Date Data Source [id number] 05/31/2020 07:27:00 PM EDT [facility] 1 Medication Administration Record [facility] Emergency Department [address] [place] [address] Phone #: ext- [phone] 05/31/2020 19:25 Patient: LELAND DIAZ Sex: F : 1980 Age: 40yWeight: 68.0 kgHeight/Length: 67 inBMI: 23.5ALLERGIES: NSAID, Levaquin, Sulfa Antibiotics Date/Time Medication Administered Medication OrderedStart IV NS IV NS : Bolus 500 mL, then 81502:14 05/31/2020 Dose: IV Fluids mL/Julissa Metcalf RN Rate: 150 mL/hr over 4 hour(s)---- Dispensed: 1000 mL bagStop Site: #1 right PICC22:23 05/31/2020Peter STACIE MetcalfGiven ZOFRAN ODT [PO] (ONDANSETRON Zofran ODT PO [...] rce(s) Supporting Document(s) ID Date Data Source [id number] 05/31/2020 07:27:00 PM EDT [facility] 1 General Instructions [facility] Emergency Department [address] [place] [address] Phone #: ext- [phone] 05/31/2020 19:25 Patient: LELAND DIAZ Sex: F : 1980 Age: 40ySinus tachycardiaINSTRUCTIONSUnderstanding of the discharge instructions verbalized by patient and family.Follow-up with: Matt Sena MD, Cardiology, , [address] [place] [address], [id number] Follow up tomorrow. Call for an appointment. [...] coffee, tea, cola and some medicines. Some ovoz-uap-xvvbpvm cold andsinus remedies, diet pills, and some [...] for a stop-smoking program. 2 General Instructions [facility] Emergency Department [address] [place] [address] Phone #: ext- [phone] 05/31/2020 19:25 Patient: LELAND DIAZ Sex: F : 1980 Age: 40y If [...] breath Weakness Fainting or lightheadedness Sustained palpitations [id number] [employer]. [address] [place] [address]. All rights reserved. This information is not intended as asubstitute for professional medical care. Always follow your healthcare professional's instructions. You have been given the following additional information: Tachycardia: PAT(Electronically signed by TROY Rosa 06/01/2020 07:34) Name Value Range Interpretation Code Description Data [facility] rce(s) Supporting Document(s) ID Date Data Source [id number] 05/31/2020 07:27:00 PM EDT [facility] 1 Clinical Report - Nurses [facility] Emergency Department [address] [place] [address] Phone #: ext [phone] 05/31/2020 19:25 Patient: LELAND DIAZ Sex: F : 1980 Age: 40yTRIAGEArrived by private vehicle. Historian: patient. Accompanied by family. ( started this am and has gottenprogressively worse).Acuity: LEVEL 3.Chief Complaint: (heart racing).Alert.Onset. (this am). ( back pain).Treatment [employer]:Took Tylenol. (1300).SEPSIS SCREEN: SIRS Screen negative. Sepsis Screen negative. No suspected or confirmed signs ofinfection present. --05/31/20 Erika Gillis R.N.19:05/31/20. BP: 90/60. MAP: 70. HR: 129. RR: 18. O2 saturati on: 100%. Temp: 99 F (oral). Pain levelnow: 03/30. --05/31/20 Erika Gillis R.N.Weight: 68 kg stated. Height/Length: 67 inches Per Patient. BMI: 23.5. --05/31/20 Erika Gillis R.N.MedicationsAmbien Oral 7.5, daily as needed, at bedtime, via J tube. --05/31/20 Jeff Metcalf RN Benadryl IV 50mg QDAY for nausea, 2x a day. Carafate Oral 1 gm, q4h, via J tube. Creon Oral (Capsule Delayed Release Particles 1524-7049 unit) 1 capsule, 4x a day, J [...] but declined. 2 Clinical Report - Nurses [facility] Emergency Department [address] [place] [address] Phone #: ext- [phone] 05/31/2020 19:25 Patient: LELAND DIAZ Sex: F : 1980 Age: 40y Infectious [...] assessment completed. No skin integrity risk identified. --19:05/31/20 Erika Gillis R.N. 22:02 05/31/20. SOCIAL HX: The patient has not traveled outside the [place] Infectious disease exposure: No infectious disease exposure. The patient was not exposed to Coronavirus. --22:27 05/31/20 Jeff Metcalf RN. Interventions Identification band on patient. To treatment room. --19:05/31/20 Erika Gillis R.N.PHYSICAL ASSESSMENTAmbulatory to room.GENERAL / [...] Gillis R.N. 3 Clinical Report - Nurses [facility] Emergency Department [address] [place] [address] Phone #: ext- [phone] 05/31/2020 19:25 [facility] [id number] Sex: F : 1980 Age: 40y19:39 05/31/2020 Site #1 started via IV using a PICC line in the right with an 18g angiocath; one attempt.Blood drawn: rainbow set and green tube(s). Sent to the lab. Saline lock flushed with 10 mL saline (rightchest dual port galicia catheter). --:39 05/31/20 Erika Gillis R.N.playground monitor, NIBP monitor and pulse oximeter placed on patient; monitor car operator- Lead II; monitoralarms on. Patient gowned. Head [...] saturation: 100%. Pain level now: 03/30.--20:52 05/31/20 ROXANA Leonardo:43 05/31/2020 Dilaudid (HYDROmorphone HCl) IVP 1 mg given over 3 minute(s) via site #1. Allergiesverified and confirmed 5 rights. IV patency established. IV site checked: no pain, redness, or swelling. IVflushed thoroughly pre- and post-medication administration. IVP given by RN. Information reviewed withpatient including reason for taking this medication and sedative warning. Verbalizes understanding.--21:43 05/31/20 Jeff Metcalf RN 4 Clinical Report - Nurses [facility] Emergency Department [address] [place] [address] Phone #: ext- [phone] 05/31/2020 19:25 Patient: LELAND DIAZ Sex: F : 1980 Age: 40y 21:51 05/31/2020 KCL LIQUID PO PO Syrup/Liquid 40 meq given. Allergies verified and confirmed 5 rights. Information reviewed with patient including reason for taking this medication. Verbalizes understanding. (administered via pt's j-tube). --22:05/31/20 Shobha Knowles R.N. 22:17 05/31/2020 Metoprolol PO Tablets 25 mg given. Allergies verified and confirmed 5 rights. Information reviewed with patient including reason for taking this medication. Verbalizes understanding. (via j-tube). --22:05/31/20 Jeff Metcalf RN 22:23 05/31/2020 IV Fluids IV NS via IV site #1 Discontinued: STOPPED upon d ischarge. Total amount infused: 800 mL. IV patency established. IV site checked: no pain, redness, or swelling. IV flushed thoroughly. --22:05/31/20 Jeff Metcalf RN 22:24 05/31/2020 Site #1 removed upon discharge (flushed each port with 300 units of heparin). --22:05/31/20 eJff Metcalf RN.DISPOSITION / DISCHARGE Condition at departure: improved and stable. Discharge instructions provided and reviewed with the patient. Reviewed referral to a boot turner. Patient verbalized understanding. Written instructions provided in Panamanian. The patient was discharged by the physician stylist assistant. She was discharged home and accompanied by spouse. She left ambulatory and via private vehicle. Spouse driving. --22:05/31/20 Jeff Metcalf RN 22:26 05/31/20. BP: 111/86. MAP: 94. HR: 112. RR: 18. O2 saturation: 100%. Pain level now: 02/27. --22:26 05/31/20 Jeff Metcalf RN.Locked/Released at 05/31/2020 22:28 by Jeff Metcalf RN Name Value Range Interpretation Code Description Data Sumaya rce(s) Supporting Document(s) ID Date Data Source [id number] 05/31/2020 07:27:00 PM EDT [facility] 1 Clinical Report - Physicians/Mid Levels [facility] Emergency Department [address] [place] [address] Phone #: ext- [phone] 05/31/2020 19:25 Patient: LELAND DIAZ Sex: F : 1980 Age: 40y [...] (disorder). Hypoxia. 2 Clinical Report - Physicians/Mid Levels [facility] Emergency Department [address] [place] [address] Phone #: ext- [phone] 05/31/2020 19:25 Patient: LELAND DIAZ [facility]#: [id number] Sex: F : 1980 Age: 40y Hypokalemia. GI Disease. Lung Disease. Additional Surgeries: Abd for obstruction. Bariatric Surgery. Bowel resection. Bowel Resection [2016]. Cholecystectomy. Feeding Tube Placement. Gastric bypass. Gastric bypass reversal [08/2019]. Gastric Resection [2009]. GI bleed clipping. G-Tube Placement. Hysterectomy. J-tube [...] normal. 3 Clinical Report - Physicians/Mid Levels [facility] Emergency Department [address] [place] [address] Phone #: ext- [phone] 05/31/2020 19:25 Patient: LELAND DIAZ Sex: F : 1980 Age: 40y [...] making process. D-Dimer: (LUISANA: 05/31/2020 20:00) ( MsgRcvd 05/31/2020 20:43) Final results Test Result Flag Units (Reference) D-DIMER QUANT 0.27 ug/mL (0.27 - 0.50) CBC w Diff: (LUISANA: 05/31/2020 19:48) ( [facility] [place]11) Final results Test Result Flag [...] NOT INDICATED CMP: (LUISANA: 05/31/2020 19:48) ( [facility] [place] 05/31/[place] 21:18) Final results Test Result Flag Units (Reference) COMPREHENSIVE METABOLIC PANEL COMPREHENSIVE METABOLIC PANEL SODIUM 141 mEq/L (134 - 153) 4 Clinical Report - Physicians/Mid Levels [facility] Emergency Department [address] [place] [address] Phone #: ext- [phone] 05/31/2020 19:25 Patient: LELAND DIAZ Sex: F : 1980 Age: 40y POTASSIUM [...] Male GFR Interprentation 20-49 yrs >60 mL/min Hygegw92-65 yrs >56 mL/min Normal 60-69 yrs >49 mL/min Normal 70-79yrs>42 mL/min Normal 80 and above >35 mL/min Normal Female GFRInterpretation 20-39 yrs >60 mL/min Normal 40-49 yrs >58 mL/minNormal 50-59 yrs >51 mL/min Normal 60-69 yrs >45 mL/min Jhppcl85-18 yrs >39 mL/min Normal 80 and above >32 mL/min NormalPT/PTT: (LUISANA: 05/31/2020 19:48) ( [facility] 05/31/2020 20:43) Final results Test Result Flag Units (Reference) PROTIME 13.7 SECONDS (11.0 - 15.5) INR 1.04 (0.93 - 1.23) PTT 46.8 H SECONDS (24.8 - 36.7) \\BLDo\\INR INTERPRETATION\\BLDx\\ Therapeutic range for Coumadin andrelated oral anticoagulants. -International Normalized Ratio (INR): 2.0 - 3.0 for VenousThrombosis, Pulmonary Embolus, Tissue heart valves, Acute ND Atrial Fibrillation, Valvular heart diseaseand recurrent Systemic Embolism. -International Normalized Ratio (INR): 2.5 - 3.5 forMechanical Prosthetic valve.Lactic Acid: (LUISANA: 05/31/2020 19:48) ( [facility] 05/31/2020 20:16) Final results Test Result Flag Units (Reference) LACTIC ACID 2.5 H MMOL/L (0.2 - 2.2)Urinalysis: (LUISANA: 05/31/2020 20:00) ( [facility] 05/31/2020 21:30) Final results Test Result Flag Units (Reference) URINALYSIS URINALYSIS SOURCE R COLOR yellow (NORMAL: Yello CLARITY hazy (NORMAL: Clear SPEC GRAVITY 1.015 (1.001 - 1.030 pH 7 (5 - 9) GLUCOSE NORM (NORMAL: Negat BILIRUBIN NEG (NORMAL: Negat KETONE NEG (NORMAL: Negat PROTEIN 30 (NORMAL: Negat NITRITE NEG (NORMAL: Negat 5 Clinical Report - Physicians/Mid Levels [facility] Emergency Department [address] [place] [address] Phone #: ext- [phone] 05/31/2020 19:25 Patient: LELAND DIAZ Sex: F : 1980 Age: 40y BLOOD NEG (NORMAL: Negat LEUK EST 25 (NORMAL: Negat UROBILINOGEN NOR (less than 1.0 MICROSCOPIC See Below WBC 1 - 3 (NORMAL: NONE RBC 1 - 3 (NORMAL: NONE EPITHELIAL MANY A (NORMAL: NONE BACTERIA 1+ SMALL (NORMAL: NONETroponin-T: (LUISANA: 05/31/2020 19:48) ( MsgRcvd 05/31/2020 21:18) Final results Test Result Flag Units (Reference) TROPONIN T <0.01 NG/ML (0.00 - 0.10) TROPONIN T0.1 ng/ml Recommended as the clinical threshold value forTroponin T.Chest Portable 1 View: (LUISANA: 05/31/2020 20:01) ( MsgRcvd 05/31/2020 21:45) In ColtCHEST PORTABLEReason(s): Shortness of BreathTRANSPORTATION: WC IV? O2? Oxygen?(No) Room: ED Exam [place] [address] PHONE: [phone] FAX: [phone] Name .................. : BASILIO Torres Acct Number.................. : [id number] ROOM. ................. : TR-07 MR Number ................... : [id number] Stay type ............. : E/R Discharge Date......... ... : Admit Date ......... : 05/31/20 Admit Phys .................... : DAREK Date of ....... : 1980 Family Phys ................... : MITA ROCHE Phone .................. : [phone] Age ................................ : 40 Film# .................. .:[id number] Sex ................................. : F Unsigned transcriptions are preliminary reports and do not represent a medical or legal document CHEST PORTABLE [id number] COMPLETE:05/31/20 21:34 RLB 00352 Reason(s): Shortness of Breath PORTABLE CHEST X-RAY: INDICATION: Shortness of breath. FINDINGS: There is a right IJ tunnel catheter with the tip in the SVC. The lungs are clear. The cardiac silhouette is normal in size and contour. No acute osseous abnormality. IMPRESSION: No acute pulmonary process. Electronically Reviewed and Signed By DCTIRENE SIGNDATERHEA Transcribe Initials: BECK , Transcribe Date: 05/31/20 21:44, Dictation Date: 6 Clinical Report - Physicians/Mid Levels [facility] Emergency Department [address] [place] [address] Phone #: ext- [phone] 05/31/2020 19:25 Patient: LELAND DIAZ Sex: F : 1980 Age: 40y <<REPDIST>> Page 1 of 1.PROGRESS AND PROCEDURESCourse of Care: :May 31 2020. Evaluation after cardiac monitoring and results of tests back.Lavaged. (Discussed risks, benefits, options and pt is agreeable with dx and tx plan. D/W Faye Berg SEWER PIPE PRESS OPERATOR willstart on Metoporol 25mhg and have her call Jaida's office n the AM. Pending TSH results.). Patient counseled in person regarding the patient's stable condition and diagnosis. :May 31 2020. Disposition: Discharged home in good and improved condition (May 31 2020).CLINICAL IMPRESSION Sinus tachycardiaINSTRUCTIONS Understanding of the discharge instructions verbalized by patient and family. Follow-up with: Matt Sena MD, Cardiology, , [address] [place] [address], [facility] Follow up tomorrow. Call for an appointment. Reason for referral: evaluation and treatment. Summary of care provided to patient and family.(Electronically signed by TROY Rosa 06/01/2020 07:34) Name Value Range Interpretation Code Description Data Sumaya rce(s) Supporting Document(s) ID Date Data Source [id number] 06/06/2020 07:24:00 AM EDT [facility] [address] Name Value Range Interpretation Code Description Data Sumaya rce(s) Supporting Document(s) Bacteria identified in Blood by Culture [facility] NO GROWTH AFTER 5 DAYS ID Date Data Source [id number] 06/05/2020 07:29:00 AM EDT [facility] [address] Name Value Range Interpretation Code Description Data Sumaya rce(s) Supporting Document(s) TRIMETHOPRIM/SULFAMETHOXAZOLE <0.5/9.5 Recio sceptible. Indicates for microbiology susceptibilities only. [facility] Amoxicillin+Clavulanate [Susceptibility] by Minimum inhibitory concentration (ZHANE) <4/2 Susceptible. Indicates for microbiology s usceptibilities only. [facility] Ampicillin [Susceptibility] by Minimum inhibitory concentration (ZHANE) 4 Resistant. Indicates for microbiology susceptibilities only. [facility] Ampicillin+Sulbactam [Susceptibility] by Minimum inhib itory concentration (ZHANE) <8/4 Susceptible. Indicates for microbiology suscepti bilities only. [facility] Cefazolin [Susceptibility] by Minimum inhibitory concentration ( ZHANE) <4 Susceptible. Indicates for microbiology susceptibilities only. [facility] Ciprofloxacin [Susceptibility] by Minimum inhibitory concentrati on (ZHANE) <1 Susceptible. Indicates for microbiology susceptibilities only. [facility] Clindamycin [Susceptibility] by Minimum inhibitory concentration (ZHANE) <0.5 Susceptible. Indicates for microbiology susceptibilities only. [facility] Erythromycin [Susceptibility] by Minimum inhibitory concentratio n (ZHANE) <0.5 Susceptible. Indicates for microbiology susceptibilities only. [facility] Gentamicin [Susceptibility] by Minimum inhibitory concentration (ZHANE) <4 Susceptible. Indicates for microbiology susceptibilities only. [facility] Oxacillin [Susceptibility] by Minimum inhibitory concentration ( ZHANE) <0.25 Susceptible. Indicates for microbiology susceptibilities only. [facility] Penicillin [Susceptibility] by Minimum inhibitory concentration (ZHANE) >8 Resistant. Indicates for microbiology susceptibilities only. [facility] Tetracycline [Susceptibility] by Minimum inhibitory concentratio n (ZHANE) <4 Susceptible. Indicates for microbiology susceptibilities only. [facility] Vancomycin [Susceptibility] by Minimum inhibitory concentration (ZHANE) 2 Susceptible. Indicates for microbiology susceptibilities only. [facility] Levofloxacin [Susceptibility] by Minimum inhibitory concentratio n (ZHANE) <1 Susceptible. Indicates for microbiology susceptibilities only. [facility] Moxifloxacin [Susceptibility] by Minimum inhibitory concentratio n (ZHANE) <0.5 Susceptible. Indicates for microbiology susceptibilities only. [facility] ID Date Data Source [id number] 06/06/2020 11:24:00 AM EDT [facility] Name Value Range Interpretation Code Description Data Sumaya rce(s) Supporting Document(s) CULTURE BLOOD [facility] _CULTURE BLOOD_ TEST PERFORM ED AT [address] [address] CLIA# [id number] SEE SCANNED REPORT{ PRELIM ID Date Data Source [id number] 06/02/2020 11:01:00 AM EDT [facility] 06/02/20 1058 CALLED TO NEMO Thomas BY JOSE ANTONIO OVIEDO, RESULTS READBACKThe [employer] BCID Panel is a qualitative multiplexednucleic acid-based [...] rce(s) Supporting Document(s) ID Date Data Source [id number] 06/02/2020 11:32:00 AM EDT [facility] Name Value Range Interpretation Code Description Data Sumaya rce(s) Supporting Document(s) CULTURE BLOOD [facility] spital _CULTURE BLOOD_ [place] [address] [facility]# [id number] SEE SCANNED REPORT{ PRELIM GROWTH OF STPAH SPECIESCALLED TO BRITTANY 06/02/20 ID Date Data Source [id number] 05/31/2020 08:43:00 PM EDT [facility] Name Value Range Interpretation Code Description Data Sumaya rce(s) Supporting Document(s) Fibrin D-dimer FEU [Mass/volume] in Platelet poor plasma 0.27 ug /mL 0.27 - 0.50 [facility] ID Date Data Source [id number] 05/31/2020 11:20:00 PM EDT [facility] Name Value Range Interpretation Code Description Data Sumaya rce(s) Supporting Document(s) Thyrotropin [Units/volume] in Serum or Plasma by Detec tion limit <= 0.05 mIU/L 2.83 uIU/mL 0.47 - 5.01 [facility] ID Date Data Source [id number] 05/31/2020 09:30:00 PM EDT [facility] Name Value Range Interpretation Code Description Data Sumaya rce(s) Supporting Document(s) [facility] S[facility] R [facility] al COLOR yellow NORMAL: Yellow [facility] CLARITY hazy NORMAL: Clear [facility] Specific gravity of Urine by Test strip 1.015 1.001 - 1.030 [facility] pH 7 5 - 9 [facility] al Glucose [Mass/volume] in Urine by Test strip NORM NORMAL: Negat [facility] Bilirubin.total [Presence] in Urine by Test strip NEG NORMAL: Negative [facility] Ketones [Presence] in Urine by Test strip NEG NORMAL: Negative [facility] Protein [Mass/volume] in Urine by Test strip 30 NORMAL: Negat [facility] Nitrite [Presence] in Urine by Test strip NEG NORMAL: Negative [facility] BLOOD NEG NORMAL: Negative [facility] Leukocyte esterase [Presence] in Urine by Test strip 25 DELANO L: Negative [facility] Urobilinogen [Mass/volume] in Urine by Test strip NOR less tenisha n 1.0 mg/dL [facility] MICROSCOPIC See Below [facility] ital WBC 1 - 3 NORMAL: NONE SEEN [facility] Erythrocytes [#/volume] in Urine by Test strip 1 - 3 NORMAL: NON E SEEN [facility] EPITHELIAL MANY NORMAL: NONE SEEN A [facility] Bacteria [Presence] in Urine sediment by Light microscopy 1+ SMALL NORMAL: NONE SEEN [facility] ID Date Data Source [id number] 05/31/2020 09:18:00 PM EDT [facility] Name Value Range Interpretation Code Description Data Sumaya rce(s) Supporting Document(s) TROPONIN T <0.01 NG/ML 0.00 - 0.10 [facility] ospital TROPONIN T0.1 ng/ml Recommended as the c linical threshold value Talibn [facility]. ID Date Data Source [id number] 05/31/2020 09:17:00 PM EDT [facility] Name Value Range Interpretation Code Description Data Sumaya rce(s) Supporting Document(s) COMPREHENSIVE METABOLIC PANEL [facility] COMPREHENSIVE METABOLIC PANEL Sodium [Moles/volume] in Serum or Plasma 141 mEq/L 134 - 153 [facility] Potassium [Moles/volume] in Serum or Plasma 3.4 mEq/L 3.6 - 5.0 L [facility] Chloride [Moles/volume] in Serum or Plasma 105 mEq/L 98 - 107 [facility] Carbon dioxide, total [Moles/volume] in Serum or Plasma 23 MEQ/L 22 - 30 [facility] Glucose [Mass/volume] in Serum or Plasma 100 MG/DL 65 - 110 [facility] BUN 8 MG/DL 7 - 21 [facility] Creatinine [Mass/volume] in Serum or Plasma 0.7 MG/DL 0.7 - 1.5 [facility] BUN/CREAT 11 8 - 27 [facility] al Protein [Mass/volume] in Serum or Plasma 6.6 G/DL 6.3 - 8.2 [facility] Albumin [Mass/volume] in Serum or Plasma 4.5 G/DL 3.9 - 5.0 [facility] Globulin [Mass/volume] in Serum by calculation 2.1 GM/DL 2.4 - 3.2 L [facility] A/G RATIO 2.1 0.8 - 2.0 H [facility] Calcium [Mass/volume] in Serum or Plasma 9.4 MG/DL 8.4 - 10.2 [facility] Bilirubin.total [Mass/volume] in Serum or Plasma <0.7 MG/DL 0.2 - 1.3 [facility] Alkaline phosphatase [Enzymatic activity/volume] in Serum or Plasma 89 U/L 38 - 126 [facility] Aspartate aminotransferase [Enzymatic activity/volume] in Serum or Plasma 16 U/L 5 - 40 [facility] Alanine aminotransferase [Enzymatic activity/volume] in Seru m or Plasma 13 U/L 7 - 56 [facility] Anion gap 3 in Serum or Plasma 13.0 mmol/L 8.0 - 16.0 [facility] AGE 40 yrs [facility] NON-AA GFR >60 mL/min [facility] ital AFR AMER GFR >60 mL/min [facility] sp[facility] Male GFR In terprentation [...] >32 mL/min Normal ID Date Data Source [id number] 05/31/2020 08:43:00 PM EDT [facility] Name Value Range Interpretation Code Description Data Sumaya rce(s) Supporting Document(s) Prothrombin time (PT) 13.7 SECONDS 11.0 - 15.5 [facility] INR in Platelet poor plasma by Coagulation assay 1.04 0.93 - 1. 23 [facility] aPTT in Blood by Coagulation assay 46.8 SECONDS 24.8 - 36.7 H [facility] \\BLDo\\INR INTERPRETATION\\BLDx\\ Therapeutic range for Coumadin and related oral anticoagulants. - International Normalized Ratio (INR): 2.0 - 3.0 for Venous Thrombosis, Pulmonary Embolus, Tissue heart valves, Acute ND Atrial Fibrillation, Valvular heart disease and recurrent Systemic Embolism. - International Normalized Ratio (INR): 2.5 - 3.5 for Mechanical Prosthetic valve. ID Date Data Source [id number] 05/31/2020 08:16:00 PM EDT [facility] Name Value Range Interpretation Code Description Data Sumaya rce(s) Supporting Document(s) Lactate [Moles/volume] in Serum or Plasma 2.5 MMOL/L 0.2 - 2.2 H [facility] ID Date Data Source [id number] 05/31/2020 08:11:00 PM EDT [facility] Name Value Range Interpretation Code Description Data Sumaya rce(s) Supporting Document(s) CBC W/AUTOMATED DIFF [facility] COMPLETE BLOOD COUNT Leukocytes [#/volume] in Blood by Automated count 7.3 10^3/uL 4.2 - 1 1.0 [facility] Erythrocytes [#/volume] in Blood by Automated count 3.87 10^6/uL 4. 20 - 5.40 L [facility] Hemoglobin [Mass/volume] in Blood 10.1 g/dL 12.0 - 16.0 L [facility] Hematocrit [Volume Fraction] of Blood by Automated count 31.9 % 3 7.0 - 47.0 L [facility] Erythrocyte mean corpuscular volume [Entitic volume] by Auto mated count 82.4 fL 81.0 - 101 [facility] Erythrocyte mean corpuscular hemoglobin [Entitic mass] by Automated count 26.1 pg 27.0 - 34.0 L [facility] Erythrocyte mean corpuscular hemoglobin concentration [Mass/volume] by Automated count 31.7 g/dL 31.0 - 36.0 [facility] Erythrocyte distribution width [Ratio] by Automated count 15.5 % 11.5 - 14.5 H [facility] Platelets [#/volume] in Blood by Automated count 473 10^3/uL 150 - 45 0 H [facility] Platelet mean volume [Entitic volume] in Blood by Automated count 9.3 fL 7.4 - 10.4 [facility] Neutrophils/100 leukocytes in Blood by Automated count 57.9 % 37. 0 - 80.0 [facility] Lymphocytes/100 leukocytes in Blood by Manual count 29.7 % 25.0 - 40.0 [facility] Monocytes/100 leukocytes in Blood by Automated count 8.7 % 3.0 - 8.0 H [facility] Eosinophils/100 leukocytes in Blood by Automated count 2.6 % 0.0 - 7.0 [facility] Basophils/100 leukocytes in Blood by Automated count 0.7 % 0.0 - 2.5 [facility] %IG 0.4 % 0.0 - 0.0 [facility] %NRBC 0.0 % 0.0 - 0.0 [facility] al Neutrophils [#/volume] in Blood by Automated count 4.20 10^3/uL 2.00 - 6.90 [facility] Lymphocytes [#/volume] in Blood by Automated count 2.15 10^3/uL 0.60 - 3.40 [facility] Monocytes [#/volume] in Blood by Automated count 0.63 10^3/uL 0.00 - 0.90 [facility] Eosinophils [#/volume] in Blood by Automated count 0.19 10^3/uL 0.00 - 0.70 [facility] Basophils [#/volume] in Blood by Automated count 0.05 10^3/uL 0.00 - 0.20 [facility] #IG 0.03 10^3/uL 0.00 - 0.10 [facility] #NRBC 0.00 10^3/uL 0.00 - 0.00 [facility] MANUAL DIFF NOT INDICATED [facility] RBC MORPH NOT INDICATED [facility] ID Date Data Source [id number] 05/23/2020 08:56:00 AM EDT [facility] [address] [place] [address] PHONE: [phone] FAX: [phone] Name .................. : DANIELAGABRIELEJOE DAN Melissa Acct Number.................. : [id number] ROOM. ................. : TR-05 Number ................... : [id number] Stay type ............. : E/R Discharge Date......... ... : 05/22/20 Admit Date ......... : 05/22/20 Admit Phys .................... : DESIREE CESPEDES Date of ....... : 1980 Family Phys ................... : [facility] Phone .................. : [phone] Age ................................ : 40 Film# .................. .:[id number] Sex ................................. : F Unsigned transcriptions are preliminary reports and do not represent a medical or legal document CT ABD & PELV W/O ORAL W/[place] [address] COMPLETE:05/22/20 19:41 [facility] [address] Reason(s): Abdominal Pain CT OF THE ABDOMEN [...] air pockets. IMPRESSION: Page 1 of 2 [facility] [address] [place] [address] PHONE: [phone] FAX: [phone] Name .................. : BASILIO Torres Acct Number.................. : [id number] ROOM. ................. : TR-05 Number ................... : [id number] Stay type ............. : E/R Discharge Date......... ... : 05/22/20 Admit Date ......... : 05/22/20 Admit Phys .................... : DESIREE CESPEDES Date of ....... : 1980 Family Phys ................... : [facility] Phone .................. : [phone] Age ................................ : 40 Film# .................. .:[id number] Sex ................................. : F Unsigned transcriptions are preliminary reports and do not represent a medical or legal document CT ABD & PELV W/[place] W/[place] [id number] COMPLETE:05/22/20 19:41 SRG [id number] Reason(s): Abdominal Pain Moderate amount of stool. [...] MD , 05/23/20 08:56, FROILAN Transcribe Initials: BECK , Transcribe Date: 05/22/20 20:23, Dictation Date: Copy for: DAREK LUCAS via fax Copy for: EMERGENCY DEPT via modem Copy for: 710 MED REC DISCHARGED Page 2 of 2 Name Value Range Interpretation Code Description Data Sumaya rce(s) Supporting Document(s) ID Date Data Source [id number] 05/22/2020 04:24:00 PM EDT [facility] 1 OrderSheet [facility] Emergency Department [address] [place] [address] Phone #: ext- [phone] 05/22/2020 16:19 Patient: LELAND DIAZ Sex: F : 1980 Age: 40yWEIGHT:68.0 kg (S) HEIGHT:67 inches (S) BMI:23.5ALLERGIES: Levaquin, Sulfa Antibiotics, traZODone HClCHIEF COMPLAINT: abdominal pain, flank pain, vomiting, nauseaDIAGNOSIS: Abdominal pain, ConstipationLAB ORDERSOrder Description Priority Entered Acknowledged InitialedUrinalysis (Clean STAT 16:32 05/22/2020 16:32 John Navarrete) Lucía NavarreteN. R.NCarmelo; Verbal order per; Mikey LEWISBC w Diff STAT 16:39 05/22/2020 16:51 Jeff [...] Oswald PABlood Culture STAT 16:39 05/22/2020 17:27 Haiosilr85h X2 (Sched Mikey Oswald hogshead salvageRamakrishna ER16:39 05/22/2020) PA; Tech1 Reason for ordering with alerts: Clinical consideration given -- 16:39 05/22/2020 Mikey Swatsworth PABlood Culture STAT 16:39 05/22/2020 17:27 [id number] X2 (Sched Mikey Oswald hogshead salvage, Ramakrishna ER16:49 05/22/2020) PA; Tech1 Reason for ordering with alerts: Clinical consideration given -- 16:39 05/22/2020 Mikey Oswald PALactic Acid STAT 16:39 05/22/2020 16:51 Jeff 2 OrderSheet [facility] Emergency Department [address] [place] [address] Phone #: ext- [phone] 05/22/2020 16:19 Patient: LELAND DIAZ Sex: F : 1980 Age: 40y Mikey Metcalf RN PA; Reason for ordering with alerts: Clinical consideration given -- 16:39 05/22/2020 Mikey Oswald PADIAGNOSTIC STUDY ORDERSOrder Description Priority Entered Acknowledged InitialedCT Abd PEL W/ IV STAT 17:11 05/22/2020 Ack'd: 17:27 Welches hogshead salvage, [employer]ox [place] Mikey Oswald ER Tech1(Oxygen?(No)) PA; Cancelled: Patient [...] 16:3 9 05/22/2020 16:51 Jeff 3 OrderSheet [facility] Emergency Department [address] [place] [address] Phone #: ext- [phone] 05/22/2020 16:19 Patient: LELAND DIAZ Sex: F : 1980 Age: 40y Mikey Metcalf RN PA; Reason for ordering with alerts: Clinical consideration given -- 16:39 05/22/2020 Mikey CULLENaline Lock 16:39 05/22/2020 16:51 Jeff Metcalf RN PA; Reason for ordering with alerts: Clinical consideration given -- 16:39 05/22/2020 Kahlil SIMMONS[Electronically signed by Jeff Metcalf RN (19:40 05/22/2020)][Electronically signed by Mikey Oswald (21:35 05/22/2020)][Electronically locked by Jeff Metcalf RN (19:40 05/22/2020)] Name Value Range Interpretation Code Description Data Sumaya rce(s) Supporting Document(s) ID Date Data Source [id number] 05/22/2020 04:24:00 PM EDT [facility] 1 Medication Reconciliation Report [facility] Emergency Department [address] [place] [address] Phone #: ext- [phone] 05/22/2020 16:19 Patient: LELAND DIAZ Sex: F : 1980 Age: 40yWeight: 68.0 kgHeight/Length: 67 in.BMI: 23.5ALLERGIES: Levaquin, Sulfa Antibiotics, traZODone HClThe patient's Home Medications are listed below:CONTINUE TAKING THE FOLLOWING MEDICATIONS: Ambien Oral 7.5, daily, via J tube, prn,at bedtime Benadryl IV 50mg QDAY for nausea, 2x a day Carafate Oral 1 gm, q4h, via J tube Creon Oral ([id number] unit) 1 capsule, 4x a day, J [...] 05/22/2020 4:58:00 PM 2 Medication Reconciliation Report [facility] Department [address] [place] [address] Phone #: ext- [phone] 05/22/2020 16:19 Patient: LELAND DIAZ Sex: F : 1980 Age: 40yDilaudid [IVP] IVP 2 mg, administered: 05/22/2020 6:06:00 PMNS [IV] IV Fluids bolus 0, then 150 mL/hr, administered: 05/22/2020 6:49:00 PMThe following Medications were prescribed to the patient:None. Name Value Range Interpretation Code Description Data Sumaya rce(s) Supporting Document(s) ID Date Data Source [id number] 05/22/2020 04:24:00 PM EDT [facility] 1 Medication Administration Record [facility] Emergency Department [address] [place] [address] Phone #: [phone]- [phone] 05/22/2020 16:19 Patient: LELAND DIAZ Sex: F : 1980 Age: 40yWeight: 68.0 kgHeight/Length: 67 inBMI: 23.5ALLERGIES: Levaquin, Sulfa Antibiotics, traZODone HCl Date/Time Medication Administered Medication OrderedStart NS [IV] NS IV : Bolus 1000 mL, then 48861:58 05/22/2020 Dose: IV Fluids mL/Julissa Metcalf RN Rate: 1000 mL/hr over 1 hour(s)---- Dispensed: 1000 mL bagStop Site: #1 right PICC18:44 05/22/2020Marietta Leonardo NS [IV] NS IV : Bolus 1000 mL, then 84537:49 05/22/2020 Dose: IV Fluids mL/Julissa Metcalf RN Rate: 150 mL/hr over 8 hour(s)---- Dispensed: 1000 mL bagStop Site: #1 right PICC19:33 05/22/2020Jeff Metcalf RNGidonovan ZOFRAN [IVP] (ONDANSETRON HCL) Zofran IVP 8 mg16:58 05/22/2020 Dose: 8 mg IVPaula Metcalf RN Site: #1 right PICCGiven MORPHINE [IVP] Morphine IVP 4 mg (HIGH ALERT16:58 05/22/2020 Dose: 4 mg IVP MEDICATION)Jeff Metcalf RN Site: #1 right PICCGiven DILAUDID [IVP] (HYDROMORPHONE Dilaudid IVP 2 mg (HIGH ALERT18:06 05/22/2020 HCL) MEDICATION)Jeff Metcalf RN Dose: 2 mg IVP Site: #1 right PICC Name Value Range Interpretation Code Description Data Sumaya rce(s) Supporting Document(s) ID Date Data Source [id number] 05/22/2020 04:24:00 PM EDT [facility] 1 General Instructions [facility] [address] [place] [address] Phone #: ext- [phone] 05/22/2020 16:19 Patient: LELAND DIAZ Sex: F : 1980 Age: 40yAcute [...] tube.Creon Oral : Capsule Delayed Release Particles [id number] unit, 1 capsule 4x a day, J [...] of Abdominal Pain (Female) 2 General Instructions [facility] Department [address] [place] [address] Phone #: ext- [phone] 05/22/2020 16:19 Patient: LELAND DIAZ Sex: F : 1980 Age: 40yThe [...] for pain, symptoms, or an infection. Follow thehealthcare provider's instructions for taking these medicines. 3 General Instructions [facility] Department [address] [place] [address] Phone #: ext- [phone] 05/22/2020 16:19 Patient: LELAND DIAZ Sex: F : 1980 Age: 40yGeneral [...] begin to improve in thenext 24 hours.Call [phone] if any of these occur: Trouble breathing Confusion Fainting or loss of consciousness Rapid heart rate 4 General Instructions [facility] Department [address] [place] [address] Phone #: ext- [phone] 05/22/2020 16:19 Patient: LELAND DIAZ Sex: F : 1980 Age: 40y [...] or water and you are getting dehydrated [id number] [employer]. [address] [place] [address], [place] [address]. All rights reserved. This information is not [...] she finds when evaluatingyou. 5 General Instructions [facility] [address] [place] [address] Phone #: ext- [phone] 05/22/2020 16:19 Patient: LELAND DIAZ Sex: F : 1980 Age: 40ySymptoms [...] ids, and colon cancerComplications 6 General Instructions [facility] Department [address] [place] [address] Phone #: ext- [phone] 05/22/2020 16:19 Patient: LELAND DIAZ Sex: F : 1980 Age: 40yPotential [...] take a stool softener. 7 General Instructions [facility] Department [address] [place] [address] Phone #: ext- [phone] 05/22/2020 16:19 Patient: LELAND DIAZ Sex: F : 1980 Age: 40yMedicines you may take to treat constipation include: Fiber supplements Stool softeners Laxatives Enemas Rectal suppositoriesFollow-up careFollow up with your healthcare provider if symptoms don't get better in the next few days. You mayneed to have more tests or see a specialist.Call [phone] if any of these occur: Trouble breathing [...] stool Black, tarry stool 8 General Instructions [facility] Department [address] [place] [address] Phone #: [phone] ext- [phone] 05/22/2020 16:19 Patient: LELAND DIAZ Sex: F : 1980 Age: 40y Involuntary weight loss Weakness 1999- 2017 [employer]. [address] [place] [address]. All rights reserved. This information is not intended as asubstitute for professional medical care. Always follow your healthcare professional's instructions. You have been given the following additional information: Abdominal Pain, Unknown Cause, (Female) Constipation (Adult)(Electronically signed by TROY Rosa 05/22/2020 21:35) Name Value Range Interpretation Code Description Data Sumaya rce(s) Supporting Document(s) ID Date Data Source [id number] 05/22/2020 04:24:00 PM EDT [facility] 1 Clinical Report - Nurses [facility] [address] [place] [address] Phone #: ext- [phone] 05/22/2020 16:19 Patient: LELAND DIAZ Sex: F : 1980 Age: 40yTRIAGEArrived [...] jejunalfeedings.). She has had fever and vomiting.Treatment [employer]:(Motrin last dose at 1500, tylenol last dose [...] tube. Creon Oral (Capsule Delayed Release Particles [id number] unit) 1 capsule, 4x a day, J [...] Navarrete R.N. 2 Clinical Report - Nurses [facility] Department [address] [place] [address] Phone #: ext- [phone] 05/22/2020 16:19 Patient: LELAND DIAZ [facility]#: [id number] Sex: F : 1980 Age: 40y Medication/allergy information source: the patient. --16:05/22/20 Lucía Navarrete R.N. History PAST MEDICAL HX: [...] to room.GENERAL / NEURO / PSYCH: Alert. Fito doss X 4. Appears in pain and in [...] Metcalf RN. 3 Clinical Report - Nurses [facility] Department [address] [place] [address] Phone #: ext- [phone] 05/22/2020 16:19 Patient: LELAND DIAZ Sex: F : 1980 Age: 40yNURSING PROGRESS NOTESPatient ID band checked for patient name and birthdate: patient confirmed. Instructions provided to collectclean catch urine and patient verbalized understanding. Clean catch urine collected; sample sent to lab forurinalysis. Specimen labeled in the presence of the patient. --16:31 05/22/20 Lucía Navarrete R.N. 16:39 05/22/2020 Site #1 started via IV [...] 16. O2 saturation: 97%. Pain level now: 5/10. --18:49 05/22/20 Jeff Metcalf RN 18:44 05/22/2020 [...] pain, redness, 4 Clinical Report - Nurses [facility] Department [address] [place] [address], [place] [address] Phone #: ext- [phone] 05/22/2020 16:19 [id number] Sex: F : 1980 Age: 40y or [...] Patient verbalized understanding. Written instructions provided in Panamanian. The patient was discharged by the physician stylist assistant. She was discharged home and accompanied by spouse. She left ambulatory and via private vehicle. Spouse driving. --19:40 05/22/20 Jeff Metcalf RN 19:39 05/22/20. BP: 113/70. MAP: 84. HR: 119. RR: 16. O2 saturation: 100%. Pain level now: 510. --19:40 05/22/20 Jeff Metcalf RN.Locked/Released at 05/22/2020 19:40 by Jeff Metcalf RN Name Value Range Interpretation Code Description Data Sumaya rce(s) Supporting Document(s) ID Date Data Source [id number] 05/22/2020 04:24:00 PM EDT [facility] 1 Clinical Report - Physicians/Mid Levels [facility] Department [address] [place] [address] Phone #: ext- [phone] 05/22/2020 16:19 Patient: LELAND DIAZ Sex: F : 1980 Age: 40y [...] tube. Creon Oral (Capsule Delayed Release Particles [id number] unit) 1 capsule, 4x a day, J tube. FLUoxetine HCl Oral 20 mg, daily, via J tube. Ondansetron HCl Injection 8 mg IVP, q8h as needed. oxyCODONE HCl Oral 100/5 ml; 1ML, 4x a day as needed, via J tube. Protonix Intravenous (Solution Reconstituted 40 mg), 2x a day. Tylenol Oral, as needed.Allergies:Levaquin.Sulfa Antibiotics.traZODone HCl.SOCIAL HISTORY 2 Clinical Report - Physicians/Mid [facility] Emergency Department [address] [place] [address] Phone #: ext- [phone] 05/22/2020 16:19 Patient: LELAND DIAZ Sex: F : 1980 Age: 40y Never [...] IV Contrast Only: (LUISANA: 05/22/2020 17:11) ( MsgRcvd 05/22/2020 18:02) Canceled Reason(s): Abdominal Pain Reason(s): Abdominal Pain TRANSPORTATION: IV? IV?(Yes) O2? Oxygen?(No) Ro CBC w [...] 7.0) 3 Clinical Report - Physicians/Mid Levels [facility] Department [address] [place] [address] Phone #: ext- [phone] 05/22/2020 16:19 Patient: LELAND DIAZ [facility]#: [id number] Sex: F : 1980 Age: 40y BASO [...] Male GFR Interprentation 20-49 yrs >60 mL/min Rqtxqi13-98 yrs >56 mL/min Normal 60- 69 yrs >49 mL/min Normal 70-79yrs>42 mL/min Normal 80 and above >35 mL/min Normal Female GFRInterpretation 20-39 yrs >60 mL/min Normal 40-49 yrs >58 mL/minNormal 50-59 yrs >51 mL/min Normal 60-69 yrs >45 mL/min Kcyljl96-14 yrs >39 mL/min Normal 80 and above >32 mL/min NormalLipase: (LUISANA: 05/22/2020 16:45) ( [facility] [place] 05/22/[place] 17:28) Final results Test Result Flag Units (Reference) LIPASE 20 U/L (13 - 60)Lactic Acid: (LUISANA: 05/22/2020 16:45) ( [facility] [place] 17:24) Final results Test Result Flag Units (Reference) LACTIC ACID 1.3 MMOL/L (0.2 - 2.2)Urinalysis: (LUISANA: 05/22/2020 16:28) ( [facility] [place]/22/[place] 17:09) Final results Test Result Flag Units (Reference) URINALYSIS 4 Clinical Report - Physicians/Mid Levels [facility] Department [address] [place] [address] Phone #: ext- [phone] 05/22/2020 16:19 Patient: LELAND DIAZ Sex: F : 1980 Age: 40y [...] follow-up. Patient agrees with plan of care. :May 22 2020. Disposition: Discharged home in good and improved condition (May 22 2020).CLINICAL IMPRESSION Acute generalized abdominal pain. [...] day. 5 Clinical Report - Physicians/Mid Levels [facility] Department [address] [place] [address] Phone #: ext- [phone] 05/22/2020 16:19 Patient: LELAND DIAZ Sex: F : 1980 Age: 40y Carafate Oral : 1 gm q4h, via J tube. Creon Oral : Capsule Delayed Release Particles [id number] unit, 1 capsule 4x a day, J [...] rce(s) Supporting Document(s) ID Date Data Source [id number] 05/28/2020 07:00:00 AM EDT [facility] [address] Name Value Range Interpretation Code Description Data Sumaya rce(s) Supporting Document(s) Bacteria identified in Blood by Culture [facility] NO GROWTH AFTER 5 DAYS ID Date Data Source [id number] 05/29/2020 12:38:00 PM EDT [facility] Name Value Range Interpretation Code Description Data Sumaya rce(s) Supporting Document(s) CULTURE BLOOD [facility] Ho spital _CULTURE BLOOD_ TEST PERFORM ED AT [address] [address] [facility]# [id number] SEE SCANNED REPORT{ PRELIM ID Date Data Source [id number] 05/29/2020 12:38:00 PM EDT [facility] Name Value Range Interpretation Code Description Data Sumaya rce(s) Supporting Document(s) CULTURE BLOOD [facility] spital _CULTURE BLOOD_ TEST PERFORM ED AT [address] [place] [address] [facility]# [id number] SEE SCANNED REPORT{ PRELIM ID Date Data Source [id number] 05/22/2020 05:28:00 PM EDT [facility] Name Value Range Interpretation Code Description Data Sumaya rce(s) Supporting Document(s) COMPREHENSIVE METABOLIC PANEL [facility] COMPREHENSIVE METABOLIC PANEL Sodium [Moles/volume] in Serum or Plasma 135 mEq/L 134 - 153 [facility] Potassium [Moles/volume] in Serum or Plasma 3.8 mEq/L 3.6 - 5.0 [facility] Chloride [Moles/volume] in Serum or Plasma 103 mEq/L 98 - 107 [facility] Carbon dioxide, total [Moles/volume] in Serum or Plasma 21 MEQ/L 22 - 30 L [facility] Glucose [Mass/volume] in Serum or Plasma 131 MG/DL 65 - 110 H [facility] BUN 7 MG/DL 7 - [facility] Creat[facility] [Mass/volume] in Serum or Plasma 0.8 MG/DL 0.7 - 1.5 [facility] BUN/CREAT 9 8 - 27 [facility] al Protein [Mass/volume] in Serum or Plasma 6.2 G/DL 6.3 - 8.2 L [facility] Albumin [Mass/volume] in Serum or Plasma 4.0 G/DL 3.9 - 5.0 [facility] Globulin [Mass/volume] in Serum by calculation 2.2 GM/DL 2.4 - 3.2 L [facility] A/G RATIO 1.8 0.8 - 2.0 [facility] Calcium [Mass/volume] in Serum or Plasma 9.0 MG/DL 8.4 - 10.2 [facility] Bilirubin.total [Mass/volume] in Serum or Plasma <0.7 MG/DL 0.2 - 1.3 [facility] Alkaline phosphatase [Enzymatic activity/volume] in Serum or Plasma 143 U/L 38 - 126 H [facility] Aspartate aminotransferase [Enzymatic activity/volume] in Serum or Plasma 20 U/L 5 - 40 [facility] Alanine aminotransferase [Enzymatic activity/volume] in Seru m or Plasma 35 U/L 7 - 56 [facility] Anion gap 3 in Serum or Plasma 11.0 mmol/L 8.0 - 16.0 [facility] AGE 40 yrs [facility] al NON-AA GFR >60 mL/min [facility] ital AFR AMER GFR >60 mL/min [facility] sp[facility] Male GFR In terprentation [...] >32 mL/min Normal ID Date Data Source [id number] 05/22/2020 05:28:00 PM EDT [facility] Name Value Range Interpretation Code Description Data Sumaya rce(s) Supporting Document(s) Lipase [Enzymatic activity/volume] in Serum or Plasma 20 U/L 13 - 60 [facility] ID Date Data Source [id number] 05/22/2020 05:24:00 PM EDT [facility] Name Value Range Interpretation Code Description Data Sumaya rce(s) Supporting Document(s) Lactate [Moles/volume] in Serum or Plasma 1.3 MMOL/L 0.2 - 2.2 [facility] ID Date Data Source [id number] 05/22/2020 05:10:00 PM EDT [facility] Name Value Range Interpretation Code Description Data Sumaya rce(s) Supporting Document(s) CBC W/AUTOMATED DIFF [facility] COMPLETE BLOOD COUNT Leukocytes [#/volume] in Blood by Automated count 6.2 10^3/uL 4.2 - 1 1.0 [facility] Erythrocytes [#/volume] in Blood by Automated count 3.68 10^6/uL 4. 20 - 5.40 L [facility] Hemoglobin [Mass/volume] in Blood 9.8 g/dL 12.0 - 16.0 L [facility] Hematocrit [Volume Fraction] of Blood by Automated count 31.0 % 3 7.0 - 47.0 L [facility] Erythrocyte mean corpuscular volume [Entitic volume] by Auto mated count 84.2 fL 81.0 - 101 [facility] Erythrocyte mean corpuscular hemoglobin [Entitic mass] by Automated count 26.6 pg 27.0 - 34.0 L [facility] Erythrocyte mean corpuscular hemoglobin concentration [Mass/volume] by Automated count 31.6 g/dL 31.0 - 36.0 [facility] Erythrocyte distribution width [Ratio] by Automated count 15.4 % 11.5 - 14.5 H [facility] Platelets [#/volume] in Blood by Automated count 340 10^3/uL 150 - 45 0 [facility] Platelet mean volume [Entitic volume] in Blood by Automated count 9.7 fL 7.4 - 10.4 [facility] Neutrophils/100 leukocytes in Blood by Automated count 67.9 % 37. 0 - 80.0 [facility] Lymphocytes/100 leukocytes in Blood by Manual count 17.7 % 25.0 - 40.0 L [facility] Monocytes/100 leukocytes in Blood by Automated count 9.0 % 3.0 - 8.0 H [facility] Eosinophils/100 leukocytes in Blood by Automated count 4.5 % 0.0 - 7.0 [facility] Basophils/100 leukocytes in Blood by Automated count 0.6 % 0.0 - 2.5 [facility] %IG 0.3 % 0.0 - 0.0 H [facility] al %NRBC 0.0 % 0.0 - 0.0 [facility] al Neutrophils [#/volume] in Blood by Automated count 4.21 10^3/uL 2.00 - 6.90 [facility] Lymphocytes [#/volume] in Blood by Automated count 1.10 10^3/uL 0.60 - 3.40 [facility] Monocytes [#/volume] in Blood by Automated count 0.56 10^3/uL 0.00 - 0.90 [facility] Eosinophils [#/volume] in Blood by Automated count 0.28 10^3/uL 0.00 - 0.70 [facility] Basophils [#/volume] in Blood by Automated count 0.04 10^3/uL 0.00 - 0.20 [facility] #IG 0.02 10^3/uL 0.00 - 0.10 [facility] H ospital #NRBC 0.00 10^3/uL 0.00 - 0.00 [facility] ospital MANUAL DIFF NOT INDICATED [facility] RBC MORPH NOT INDICATED [facility] spital ID Date Data Source [id number] 05/22/2020 05:09:00 PM EDT [facility] Name Value Range Interpretation Code Description Data Sumaya rce(s) Supporting Document(s) [facility] R [facility] COL[facility] yellow NORMAL: Yellow [facility] ospital CLARITY hazy NORMAL: Clear [facility] spital Specific gravity of Urine by Test strip 1.020 1.001 - 1.030 [facility] pH 6 5 - 9 [facility] Glucose [Mass/volume] in Urine by Test strip NORM NORMAL: Negat [facility] Bilirubin.total [Presence] in Urine by Test strip NEG NORMAL: Negative [facility] Ketones [Presence] in Urine by Test strip NEG NORMAL: Negative [facility] Protein [Mass/volume] in Urine by Test strip 30 NORMAL: Negat [facility] Nitrite [Presence] in Urine by Test strip NEG NORMAL: Negative [facility] BLOOD 10 NORMAL: Negative A [facility] Leukocyte esterase [Presence] in Urine by Test strip NEG DELANO L: Negative [facility] Urobilinogen [Mass/volume] in Urine by Test strip NOR less tenisha n 1.0 mg/dL [facility] MICROSCOPIC See Below [facility] ital WBC 1 - 3 NORMAL: NONE SEEN [facility] Erythrocytes [#/volume] in Urine by Test strip None Seen NORMAL: NON E SEEN [facility] EPITHELIAL MANY NORMAL: NONE SEEN A [facility] Bacteria [Presence] in Urine sediment by Light microscopy Tr nick NORMAL: NONE SEEN [facility] ID Date Data Source [id number] 04/14/2020 03:09:51 PM EDT [facility] Name Value Range Interpretation Code Description Data Sumaya rce(s) Supporting Document(s) Progress Note [facility] FUYAVs4uJwVONcWt98/SNOehZABqy0BqRDovQGo1ERmlZXHxK1UhKIN8sN7dPLL1TAiOBkWrUcJwNbX7 lbm [file] [id number] ID Date Data Source [id number] 03/08/2020 07:05:00 AM EDT [facility] Name Value Range Interpretation Code Description Data Sumaya rce(s) Supporting Document(s) Prealbumin 23 mg/dL 12-34 [facility] ID Date Data Source [id number] 02/23/2020 11:30:51 AM EDT [facility] Name Value Range Interpretation Code Description Data Sumaya rce(s) Supporting Document(s) Progress Note [facility] NFBXEk7lCiWMOcZn66/DEMbuIKOem1LaKNkwSZi5JSslQYIsT8FgANB9eO4cTCS5XUsABhRxBmJhDGR2 lbm WfLnsORqFbEKBgHcjKHwObYCnfYawhmRWcTQ8MwZR8XQLtX82wSBGnTANyU2XfBAU8GFK+Hz6RBEPyeT NqUI3HNorD0Q0GykvBHs4mMF3LYazfbOCT1n8NvWPsZLjJyrqL5L5Zc13lCVEAA0EMk5i/j1FTuLDhcV ww7EVfCIhH0YSaBJ8OwEk3LAu7l3/UXuhblqUW/9/+ GcaO6l+rv/2DWcr6yp553F+cYuqnROYF9jLCM244shKhwwz/aki0YdH0Y00kjApm2OFXBbCu6Pa8KOln lfTGw+ftuYGyBQZxovtQXq07UNa12wz+yI301ADm/KoOO+wnJ4e9BLf5JvnF7GaGRJlrasW7loVj4TVH fTELVq3oVbJqPkzl4L08R6TCn6w/GOvlsz0B8qSF8I sUhgHGtEdfI59sRXL1fRSIZyKwsdPWjloRojD+zLHHon7LO2LbCrnuK9l3+BMCkkkb9dvkdqpXD09Vf7 BY5f7S20U/Ant3JVlKu0dDyCD45s4wUghqh+G4dwp+qmc3LPnlKM4mtYpqlUZJH0j8RT52L5BKjdahXq CRC6SsbX5qYmrg3zYAbj/Yt+PQ+SEpmE4ep6aj2w8X +OatgLGV9MGXSzTEwED8I6iT3moTarL+U+cP4T6dGFJEtw3lI4hnXOjJFW+5cl1k5I6HaDdL3L4H6cV1 rtn2aiPN1uIDqLtF5sbn0RcwhxQwyv/cPKYmM2+4iAaTbvNdveroLLrHe2c+RRdejkcGlWAxecExru0/ 6tC2CyovyhPo3Q/j14Caa7CMH6oJQDg69m8cKwZNwI nRTdOr4I6+ILvGt8kjKxifJZR1w+xaYcYc/6QfYlIrZ5PGVJ/OyeDI0cm5BTgLtQwjl2Tl+nKSNcMob1 6yM5ejo03UhjDegy05DnjjkR7V/AxmqIhgHvIem5kxGW1VtEkv/QzXDzMQ/r6/58aK0lFwZ73WPilasI BO3ugnWj03OKUL388HixfXfl0YeuWhzOpzIk/LY/Day [file] [id number]= ID Date Data Source [id number] 02/10/2020 02:21:21 PM EDT [facility] Name Value Range Interpretation Code Description Data Sumaya rce(s) Supporting Document(s) Progress Note [facility] NAWQNf0bMtEXPgPo62/USSnzMTLgs2CpOGbrIHr5XIebKYEnZ5GbHCM7jF4vZEI6KNkMBkBkVjMrVBTi lbm OhAmqMPcBlCHBbSjrHKeSqNGweXrctpSKtBX7LqCZ3OVDyA00eEPGlTIKxF5JiQJZyCOh+Ru9OKMWrdP UpZG2CKtqG7Nlrutg0Ce5yzV8PyIFirZGtICnxv9OBdRWZuduQIdjbgtms1ZtEcmrRE7t561/wwZA7sa Z6rauXSw1f1uJaTTh+R5UH2HOfCFwe68/FUWSllCL/ v/41SrQYTMUf/hLhzKIoU2o/ZLRXv9husWpB9EoKyHQ36BgpTxwktsR5kqwdAEneoCtOJQQPs03Bx5ee tD+fLA/J60woegsTL0S76M7oxOPLSdtPe39+Xm4ivVjVjXvAAebLvYB2Lz87YL9FRfTVm+SVv2Ej2U4J 51OBxa26dXXBOgCiwv+LaqkTmXk+rbFEi8DhwSCbF7 1pT7aUElhYRhgufbhUXRNwfQR7hcdPUy6Oj1kHrouoBFcoBc18h+LGKFfrQJND9SaV13Lf8L9u2BhvU6 Muq38yApB31Xa9MD0AUfByjssTt983StYb2skERvvpW3FcrIixZCnh4Amc4WDZkJDSk1YjdKdtdedr2d ljjsNjlUTexZuwEJ/w243VGgby/XiPvirSZ4503o3Q 5kk1QyvwP+Nwb8dkrLR57I3n9JeTViDU7VTkVZdJATd8H4JrgwtNx6dyxUm0+GTR3uDhNxI06D1wScMK AM7QuBWjohZcS8QYYlTJUOjy8WiqxHfjuulJh1PM5RgncNh07R6rTuIGJNjyMsccCB+e/DAY+SM71Ho3Q [file] ICAgICAgICAgICAgICAgICAgICAgICAgICAgICAgIC AgICAgICAgICAgICAgICAgICAgICAgICAgICAgICAgICAgICANCiAgICAgICAgICAgICAgICAgICAgIC AgICAgICAgICAgICAgICAgICAgICAgICAgICAgICAgICAgICAgICAgICAgICAgICAgICAgICAgICAgIC AgICAgICAgICAgICAgICAgICANCiAgICAgICAgICAg ICAgICAgICAgICAgICAgICAgICAgICAgICAgICAgICAgICAgICAgICAgICAgICAgICAgICAgICAgICAg ICAgICAgICAgICAgICAgICAgICAgICAgICAgICANCiAgICAgICAgICAgICAgICAgICAgICAgICAgICAg ICAgICAgICAgICAgICAgICAgICAgICAgICAgICAgIC AgICAgICAgICAgICAgICAgICAgICAgICAgICAgICAgICAgICAgICANCiAgICAgICAgICAgICAgICAgIC AgICAgICAgICAgICAgICAgICAgICAgICAgICAgICAgICAgICAgICAgICAgICAgICAgICAgICAgICAgIC AgICAgICAgICAgICAgICAgICAgICANCiAgICAgICAg ICAgICAgICAgICAgICAgICAgICAgICAgICAgICAgICAgICAgICAgICAgICAgICAgICAgICAgICAgICAg ICAgICAgICAgICAgICAgICAgICAgICAgICAgICAgICANCiAgICAgICAgICAgICAgICAgICAgICAgICAg ICAgICAgICAgICAgICAgICAgICAgICAgICAgICAgIC AgICAgICAgICAgICAgICAgICAgICAgICAgICAgICAgICAgICAgICAgICANCiAgICAgICAgICAgICAgIC AgICAgICAgICAgICAgICAgICAgICAgICAgICAgICAgICAgICAgICAgICAgICAgICAgICAgICAgICAgIC AgICAgICAgICAgICAgICAgICAgICAgICANCiAgICAg ICAgICAgICAgICAgICAgICAgICAgICAgICAgICAgICAgICAgICAgICAgICAgICAgICAgICAgICAgICAg ICAgICAgICAgICAgICAgICAgICAgICAgICAgICAgICAgICANCiAgICAgICAgICAgICAgICAgICAgICAg ICAgICAgICAgICAgICAgICAgICAgICAgICAgICAgIC AgICAgICAgICAgICAgICAgICAgICAgICAgICAgICAgICAgICAgICAgICAgICANCjw/dGYtS6tlpAVsyn I7L0deIc1CBe5XOD8rd9IpQGGlNMrhmnJvKdcYCsPkMWMhXhqPBkh4XLguKR3ZhCWvN2WwC3WtRMvbCZ 7OCNRaTCWxiFJeJKKbLHUtBqY9XPFzFQhmCG9GrETj CAdqIUCzPJShJJ5RAHNvE899jyIiIE4DVb9JOgPzVT3pou3BDKnvLCWxSvuYUln4HOwdPE1NvBPsfUHo LNLuELPCLbElX6xgc4SrGxQbDHVOTFjkKH4Ms8VsgZJyWOx+Pf2HAV1gx6VnLGyoNTSaFS8fpt3FAOkJ HeZyT5MvuXqmKLZyk7yiFWDaCF1xeOMdEYI5GJrul4 ZyIWTkV4F9plabkepdSFMmAHAhFW3aSe0pUWWuJDKsOzLwGZFSJP1EFWJfHKOutFTiPYMwXCFDIH7WMU qpTOG4RZBgheIlvSMoEDpwIS6YFSZnveEaRXjgXDXAWFq+Jb4XWW7aj0FhBBwjCZGzLZ2ldz2BFMuCEs FaF8M0lCXpV8C3BZvfFf3SZQAmNXJpFJebZMHAWLiy AO1SIP7ellX4XI1GdQCwCYSzCYGlePQcHGt8N31ekYSbVBvmUH6YEVT+Savannah+Ma8OOAGtEYRzNXBdYgBv VWFGYzOuR9MoX2OBd7BaK6OvUZ54oKqhijUjXHsoIU3THZ1pFDHbTTQOYO4EnMRezX7racFnEQCsMRVO QgLeD72ufUUrNHAeGIE0TOHtJh8OEGYwP1MhzjPziH gsimUwDNJfTCSJKJ6JQIlsdwNvkFTrbOtzIP58wGeyAW7JXu7VUeUdBG0zln2IwYVsFx4JVQUwJf5XIC RrPXKdLDGkJFE3QVWzNrWoXPeoBWBwOIZrDXW5WRIpBHCmWD1EAqHcKAXqBbT4CYRoMXIzGKEzfc6KAF XbRFHvYqS3LGDvVMEhYAYyABcxBICtTNOuJAX0VPFi SPPlAI9ZPkGeUJKtVHQ0WLDuHKBeBGChaw4SEYRfLLZrWge8YNDqCFJyHMHwFVqoKWPzVALdFpU2EISc XLBpQH6CEwIiUKUnKRL7ZEFyRMMdAWSwwh2LGYKpTFPuHIWpJVCwPKZzQVVcELnkJBEpEDH8UDuhYFTe GZHdKK6MDeJmSVAhJRMxMMNyMRNqMGJzws0YQTQyHZ XfRVK6PyNnMTVfDCBjMIrqCTJoVNI8KUpyBCQaDJYcHL7XBbBiOFLjYdi2VOYtDDAfGJFidp4ZSOSzHQ HnUBe4XRYqDUElVHLrOAsyXKAbUNFnSJlfAIYuRUXiSE1WWsInMOPfLeG3HIjbJJWfDQWyqi5CMJUnZA LbUYQwMSZkGRSwKRTjAOgzQIVmZLCmPYN2YYUmRHFq KA0CQeBmTYBbLxU2EkdgRJDmWFMrcg8RNKMeMQOiQfE6QFBjBBSrZFZzQGb1zjLuiJXvYZe8IC5ZN9Uq vhQzDfGFCy9Ln553DPHpRLTmOc3MJ0yyAj6uOQAgTBORPk3TNWb3XHE1SJm7ZOKvEDWsIFFbWWWgAGH9 BXC4UJleJUL9TOP+ACtdKcE0ZQI8E0L5ZWOcDBDdKM I7RuMaDRo0FFLmJUS8IJ6mXEPPRc8+TMkukHHurOheGVLJDbUaOGLhPYweIMFXXp7X ID Date Data Source ERYTHROCYTE SEDIMENTATION RATE 01/18/2020 12:00:00 AM EDT eC W1 ([facility]) Name Value Range Interpretation Code Description Data [employer] rce(s) Supporting Document(s) 26 0-20 ERYTHROCYTE SEDIMENTATION RATE eCW1 ([facility]) ID Date Data Source C REACTIVE PROTEIN QUANTITATIV (At [facility]) 01/18/2020 12:00 :00 AM EDT eCW1 ([facility]) Name Value Range Interpretation Code Description Data [employer] rce(s) Supporting Document(s) < 0.30 0.00-0.30 C REACTIVE PROTEIN QUANTI TATIV eCW1 ([facility]) ID Date Data Source [id number] 11/16/2019 03:00:37 PM [facility] Name Value Range Interpretation Code Description Data [employer]aya rce(s) Supporting Document(s) Progress Note [facility] YZSCLp2bMiVEAiEx15/YAPaqRZUyc5XiANhuBNg7YFyqMDDhA5PlKHH4aX7oVOC4RPdTEiKyXhYlYXW8 lbm [file] MQtfJDNhAoY4ANXiXFwsVcYzXZ6HBm5BVkE7DFE4hXPqEn5NMfRyGvAWQiBtES0ZRBn= ID Date Data Source [id number] 11/02/2019 02:40:27 PM EST [facility] Name Value Range Interpretation Code Description Data Sumaya rce(s) Supporting Document(s) Discharge Summary [facility] RREOHh2oOgLWZbAh14/WWWtpLSEjp9WzTOpfTJg5EOsuNOHcX9DnJCA1aN3bRTE3BHaCUlXnCcJnNVZx lbm [file] ICAgICAgICAgICAgICAgICAgICAgICAgICAgICAgICAgICAgICAgICAgICAgICAgICAgICAgICAgICAg ICAgICAgICAgICAgICAgICAgICAgICAgICAgICAgIC AgICAgICAgDQogICAgICAgICAgICAgICAgICAgICAgICAgICAgICAgICAgICAgICAgICAgICAgICAgIC AgICAgICAgICAgICAgICAgICAgICAgICAgICAgICAgICAgICAgICAgICAgICAgICAgDQogICAgICAgIC AgICAgICAgICAgICAgICAgICAgICAgICAgICAgICAg ICAgICAgICAgICAgICAgICAgICAgICAgICAgICAgICAgICAgICAgICAgICAgICAgICAgICAgICAgICAg DQogICAgICAgICAgICAgICAgICAgICAgICAgICAgICAgICAgICAgICAgICAgICAgICAgICAgICAgICAg ICAgICAgICAgICAgICAgICAgICAgICAgICAgICAgIC AgICAgICAgICAgDQogICAgICAgICAgICAgICAgICAgICAgICAgICAgICAgICAgICAgICAgICAgICAgIC AgICAgICAgICAgICAgICAgICAgICAgICAgICAgICAgICAgICAgICAgICAgICAgICAgICAgDQogICAgIC AgICAgICAgICAgICAgICAgICAgICAgICAgICAgICAg ICAgICAgICAgICAgICAgICAgICAgICAgICAgICAgICAgICAgICAgICAgICAgICAgICAgICAgICAgICAg ICAgDQogICAgICAgICAgICAgICAgICAgICAgICAgICAgICAgICAgICAgICAgICAgICAgICAgICAgICAg ICAgICAgICAgICAgICAgICAgICAgICAgICAgICAgIC AgICAgICAgICAgICAgDQogICAgICAgICAgICAgICAgICAgICAgICAgICAgICAgICAgICAgICAgICAgIC AgICAgICAgICAgICAgICAgICAgICAgICAgICAgICAgICAgICAgICAgICAgICAgICAgICAgICAgDQogIC AgICAgICAgICAgICAgICAgICAgICAgICAgICAgICAg ICAgICAgICAgICAgICAgICAgICAgICAgICAgICAgICAgICAgICAgICAgICAgICAgICAgICAgICAgICAg ICAgICAgDQogICAgICAgICAgICAgICAgICAgICAgICAgICAgICAgICAgICAgICAgICAgICAgICAgICAg ICAgICAgICAgICAgICAgICAgICAgICAgICAgICAgIC PzUGTiUIDkRVSgIZWgVWIxOHr5D0xiQDLiFSTqMU5xXPy5Gs7+CWjVGbGnQLG4bhEyiM6NXK7dl4ZyGI hvGZKih5SgQMt2VS6EGLClJCwhBY1WGYsxrh9YUROdFQOzsTPLk2acQnDoPBV3AFLkYhzbWR1EXAVvX0 lkcyBbIDUgMCBSIDcgMCBSIDkgMCBSIDExIDAgUiAx SwJqYKGyYLHzEIASFLG9DVBiDbEsBBwyWI5Xl4BzjJA7XAw+Kg0WSY7pi0TlDIx5XgSfWD5mqh2SCGtH CpTdY6CpaiT8ZWGsOIWzMb1FBXNqLJVexNU1UfSaWLMSKnKpU1OzsN73EJVPRu7+DQplbmRvYmoNCjQz LWZyx9TkCTb8AA4FMYJeKQo3iUEsQEboP3jpscmmZO M8wK4fefsbVvurQINiRKnpVOVQz5lghAylUSNxMTQqYJ8lXx8nHMNyDRHlIjPaLRYBCU1YJJDpHRPgvL QpMAHgVIQHZB1VTQsyDSC0LECyfkAmlURjQXjsXF3VIYYxmpKyAVQxBRJVNRo+Et9OKH5yg9AyYXy9ST MuTL7fel4ZMAkKWsLcZ5Y1zWEmY8H5YXcnZe6LOUDq XZRnUBPxVMKLWEpqNN1SQA0zanR0LI9OyUVbPGVuKERwkURhQJo3X06bkPBmVJxfVI5CJVF+Savannah+Pg0K KIBrCUAyIBLxDlKvYLTGHfDwC4TeY9TMq9ZuM9EpHQ61dLxpwoJaTLmcIE5OGV1wQMFhVLEZBT3BqXTq lG4eenY4RdGzYJNOCuOlO86sqKOfRRYwSROyBQSmFt 7JCHChN3TghcSxxWyddrAqNJElZHEMQA4UPVgfrvOalCThxOyfMX64lDvqOU1MHx2RNbVqDE6rms7YxA DeXa7YFGP0LI7LNADcRXWlEJNzHWR4LQSeQcNlKYdhJUVqPEVwFPG1YNDpUZSaPG1LWwQfHKDrJZJ1ZB TeZNUeRWReoy3AQFKqROY1KSM8AbCjJWQiFEQzXTqw GLOxZEZcWBQ9UFRoAWHfYX9TWyAmKEPaPHX7UUUaXQAzNJTshf5JMGSrKRSlBqR4TVRkOQJoWIFdDOdu HMYeSOC2WQx7SSXfDSMdFY1JTjFhOQZxGQVvLSNaGJYnGOTbok6MSHCfLGBwRSF7QqWiKYMvAPRpGKdl JYVtDKC4WvN3GJXzENOnLB3KBaGfNJInTVH7HTYdVV UhOTEzeo8IPLWwEBMeUmedPTWvQQHkPKRgTVbrEVNfNWE5KDY3EAIjNRHrRI6SRiVgWQPjARhvWJIyXA RfFZNkmm1FNZVcHAEmOQXuIbYdKZYqJCNpLDfdYWQbXUE7FsTkOYAoJBFeHA0LHmQmUWHiWpSrSIfyYN AuXLOpja1PQOSuGDGrDRF3MFEsNPHpIYDdVFydTJXm FEDlBUL6NEBjEJQjVX5VViFcKFVbWtC0NdPrIQKqSZZebk2QMFUqRHJoDYyeMMRnSWBeXEKrVRsfYMCm BLJqCgT4KUUwZGJeBJ3JAgFnCJKrTjZ5KsLjPQYtZCLdwi8ISTQqJSGpOqL1TZWtVBUmQBFbXDhwZYWk NPE0ULL4DGRiCTWeXA4ZEpVnZRUrBeEvAXCoZFVsTY Ezvu5NEOArKBXpQTI8IHUaLPMyKFCpIDhnGFFjLHH1RGl5LPPsPDOmRO9RMuLjNXClRbLtSPsdCEObGV Wmrl5MLZGwIYZxPfOrJkZqENMxTHOiSQafKAVgZWD7XgQ4YNGaBIGqHX4XJoJaCKBtQhG0SBJiWBGgKR Cuiq7MBKPbSKVyIvqyTDZxTDHzPAGuRWfuRXKnFPE1 GOAuBXMaQGEzMN9ZWrOjISLgAdbnLPRgWMMaTUZdiv9NJNCmOPD8Hxj1GyGfSFHhFTPyVMjiUBFpAREy Ivl4QWXeZPGkND3XAvYqTXOfMHE8KGRyHGFuDEDlfy8QRTNfNMP9OlrdAwPtGGOlSSHaDImhLHLkZPDp XCgyANKaTXUePT4HAgPyDPAzRSDcZaScOSTnZBEoor 0JSSGnJOR0FFrcFKEoVALxVYOiHUqpMUWnYUK1CIpfNDHeVPFrJY8GVoEmNQVlDLOiMsExEVZeKZTbnu 1EdCXytIqmxt8DNNdDBt8BaGquOSK4NUlnIt9tsKO2CRBaEPNVCc4AtbXoQDWfAJTXCPdbWIEiZWY2UJ DoZmfjUeS6XUKwO5D6KqJ4RAEhZgOqKVVsNwofTcK8 Cxd8EwScGJVzClC3VQX0YxWzQFNqE0JbGSCwIZM8MTH+HS5qGLy+Ub7Qh3GqjqR8ssLrLAb5KoX1Ey4K IQTOR5RVFe== ID Date Data Source [id number] 11/02/2019 11:58:32 AM [facility] Name Value Range Interpretation Code Description Data [employer] rce(s) Supporting Document(s) Glucose [Mass/volume] in Capillary blood by Glucometer 123 mg/dL 70- 140 [facility] ID Date Data Source [id number] 11/02/2019 10:00:29 AM [facility] Name Value Range Interpretation Code Description Data Sum[employer] rce(s) Supporting Document(s) Bicarbonate [Moles/volume] in Serum 28 mmol/L 22-29 [facility] Chloride [Moles/volume] in Serum or Plasma 100 mmol/L 98-107 [facility] Creatinine [Mass/volume] in Serum or Plasma 0.61 mg/dL 0.50-0.90 [facility] Glucose [Mass/volume] in Serum or Plasma 130 mg/dL 70-140 [facility] Potassium [Moles/volume] in Serum or Plasma 4.9 mmol/L 3.4-5.1 [facility] Sodium [Moles/volume] in Serum or Plasma 136 mmol/L 136-145 [facility] Urea nitrogen [Mass/volume] in Serum or Plasma 16 mg/dL 6-20 [facility] Anion gap 3 in Serum or Plasma 8 mmol/L 8-15 [facility] Osmolality of Serum or Plasma by calculation 285 mosm/kg 275-300 [facility] Creatinine/Urea nitrogen [Mass Ratio] in Serum or Plasma 26 [facility] Calcium [Mass/volume] in Serum or Plasma 9.4 mg/dL 8.6-10.0 [facility] Glomerular filtration rate/1.73 sq M pre dicted among non-blacks [Volume Rate/Area] in Serum or Plasma by Creatinine-based formula (MDRD) >6 0 [facility] Glomerular filtration rate/1.73 sq M pre dicted among blacks [Volume Rate/Area] in Serum or Plasma by Creatinine-based formula (MDRD) >60 [facility] ID Date Data Source [id number] 11/02/2019 07:44:21 AM [facility] Name Value Range Interpretation Code Description Data [employer] rce(s) Supporting Document(s) Glucose [Mass/volume] in Capillary blood by Glucometer 129 mg/dL 70- 140 [facility] ID Date Data Source [id number] 11/02/2019 06:08:59 AM [facility] Name Value Range Interpretation Code Description Data [employer] rce(s) Supporting Document(s) Bicarbonate [Moles/volume] in Serum 29 mmol/L 22-29 [facility] Chloride [Moles/volume] in Serum or Plasma 100 mmol/L 98-107 [facility] Creatinine [Mass/volume] in Serum or Plasma 0.52 mg/dL 0.50-0.90 [facility] Glucose [Mass/volume] in Serum or Plasma 81 mg/dL 70-140 [facility] Potassium [Moles/volume] in Serum or Plasma 5.8 mmol/L 3.4-5.1 [facility] Sodium [Moles/volume] in Serum or Plasma 136 mmol/L 136-145 [facility] Urea nitrogen [Mass/volume] in Serum or Plasma 16 mg/dL 6-20 [facility] Confirmed Anion gap 3 in Serum or Plasma 7 mmol/L 8-15 L [facility] Osmolality of Serum or Plasma by calculation 282 mosm/kg 275-300 [facility] Creatinine/Urea nitrogen [Mass Ratio] in Serum or Plasma 31 [facility] Calcium [Mass/volume] in Serum or Plasma 9.1 mg/dL 8.6-10.0 [facility] Glomerular filtration rate/1.73 sq M pre dicted among non-blacks [Volume Rate/Area] in Serum or Plasma by Creatinine-based formula (MDRD) >6 0 [facility] Glomerular filtration rate/1.73 sq M pre dicted among blacks [Volume Rate/Area] in Serum or Plasma by Creatinine-based formula (MDRD) >60 [facility] ID Date Data Source 11/02/2019 06:08:59 AM [facility] Name Value Range Interpretation Code Description Data Sumaya rce(s) Supporting Document(s) Magnesium [Mass/volume] in Serum or Plasma 2.1 mg/dL 1.6-2.6 [facility] ID Date Data Source [facility] 11/02/2019 06:08:59 AM [facility] Value Range Interpretation Code Description Data Sumaya rce(s) Supporting Document(s) Phosphate [Mass/volume] in Serum or Plasma 2.6 mg/dL 2.5-4.5 [facility] ID Date Data Source [facility] 11/02/2019 06:29:20 AM [facility] Value Range Interpretation Code Description Data Sumaya rce(s) Supporting Document(s) Leukocytes [#/volume] in Blood by Automated count 7.7 10*3/uL 4-10 [facility] Erythrocytes [#/volume] in Blood by Automated count 4.35 10*6/uL 4.1- 5.3 [facility] Hemoglobin [Mass/volume] in Blood 10.6 g/dL 11.5-15.5 [facility] Hematocrit [Volume Fraction] of Blood by Automated count 32.4 % 3 6-45 L [facility] Erythrocyte mean corpuscular volume [Entitic volume] by Auto mated count 74.6 fL 80-96 L [facility] Erythrocyte mean corpuscular hemoglobin [Entitic mass] by Automated count 24.3 pg 27-33 L [facility] Erythrocyte mean corpuscular hemoglobin concentration [Mass/volume] by Automated count 32.6 g/dL [facility].0-[facility].0 [facility] width [Ratio] by Automated count 18.6 % 11.5-14.5 H [facility] Platelets [#/volume] in Blood by Automated count 279 10*3/uL 150-400 [facility] Differential cell count method - Blood [facility] Neutrophils/100 leukocytes in Blood by Automated count 46 % [facility] Lymphocytes/100 leukocytes in Blood by Automated count 39 % [facility] Monocytes/100 leukocytes in Blood by Automated count 8 % [facility] Eosinophils/100 leukocytes in Blood by Automated count 7 % [facility] Neutrophils [#/volume] in Blood by Automated count 3.54 10*3/uL 1.8-7 .0 [facility] Lymphocytes [#/volume] in Blood by Automated count 3.00 10*3/uL 1.2-4 .0 [facility] Monocytes [#/volume] in Blood by Automated count 0.62 10*3/uL 0-0.8 [facility] Eosinophils [#/volume] in Blood by Automated count 0.54 10*3/uL 0-0.5 [facility] Nucleated erythrocytes/100 leukocytes [Ratio] in Blood by Automated count 1 /100{WBCs} 0-0 [facility] Anisocytosis [Presence] in Blood by Light microscopy [facility] Poikilocytosis [Presence] in Blood by Light microscopy [facility] ID Date Data Source [id number] 11/02/2019 04:36:13 AM [facility] Value Range Interpretation Code Description Data Sumaya rce(s) Supporting Document(s) Glucose [Mass/volume] in Capillary blood by Glucometer 117 mg/dL 70- 140 [facility] ID Date Data Source [id number] 11/01/2019 11:58:04 PM [facility] Value Range Interpretation Code Description Data [employer] rce(s) Supporting Document(s) Glucose [Mass/volume] in Capillary blood by Glucometer 123 mg/dL 70- 140 [facility] ID Date Data Source [id number] 11/01/2019 08:10:55 PM EST [facility] Name Value Range Interpretation Code Description Data Sumaya rce(s) Supporting Document(s) Glucose [Mass/volume] in Capillary blood by Glucometer 141 mg/dL 70- 140 H [facility] ID Date Data Source [id number] 11/01/2019 04:25:12 PM [facility] Value Range Interpretation Code Description Data [employer] rce(s) Supporting Document(s) Glucose [Mass/volume] in Capillary blood by Glucometer 124 mg/dL 70- 140 [facility] ID Date Data Source [id number] 11/01/2019 12:02:21 PM [facility] Value Range Interpretation Code Description Data [employer] rce(s) Supporting Document(s) Glucose [Mass/volume] in Capillary blood by Glucometer 134 mg/dL 70- 140 [facility] ID Date Data Source [id number] 11/01/2019 08:07:10 AM [facility] Value Range Interpretation Code Description Data [employer] rce(s) Supporting Document(s) Glucose [Mass/volume] in Capillary blood by Glucometer 115 mg/dL 70- 140 [facility] ID Date Data Source [id number] 11/01/2019 03:56:12 AM [facility] Value Range Interpretation Code Description Data [employer] rce(s) Supporting Document(s) Glucose [Mass/volume] in Capillary blood by Glucometer 99 mg/dL 70- 140 [facility] ID Date Data Source [id number] 11/01/2019 05:23:25 AM [facility] Value Range Interpretation Code Description Data [employer] rce(s) Supporting Document(s) Leukocytes [#/volume] in Blood by Automated count 3.5 10*3/uL 4-10 [facility] Erythrocytes [#/volume] in Blood by Automated count 3.84 10*6/uL 4.1- 5.3 [facility] Hemoglobin [Mass/volume] in Blood 9.1 g/dL 11.5-15.5 [facility] Hematocrit [Volume Fraction] of Blood by Automated count 28.6 % 3 6-45 [facility] Erythrocyte mean corpuscular volume [Entitic volume] by Auto mated count 74.6 fL 80-96 [facility] Erythrocyte mean corpuscular hemoglobin [Entitic mass] by Automated count 23.7 pg 27-33 [facility] Erythrocyte mean corpuscular hemoglobin concentration [Mass/volume] by Automated count 31.8 g/dL 32.0-36.0 [facility] E[facility]th[facility] distribution width [Ratio] by Automated count 18.6 % 11.5-14.5 H [facility] Platelets [#/volume] in Blood by Automated count 212 10*3/uL 150-400 [facility] Differential cell count method - Blood [facility] Neutrophils/100 leukocytes in Blood by Automated count 43 % [facility] Lymphocytes/100 leukocytes in Blood by Automated count 36 % [facility] Monocytes/100 leukocytes in Blood by Automated count 9 % [facility] Eosinophils/100 leukocytes in Blood by Automated count 11 % [facility] Basophils/100 leukocytes in Blood by Automated count 1 % [facility] Neutrophils [#/volume] in Blood by Automated count 1.53 10*3/uL 1.8-7 .0 L [facility] Lymphocytes [#/volume] in Blood by Automated count 1.24 10*3/uL 1.2-4 .0 [facility] Monocytes [#/volume] in Blood by Automated count 0.31 10*3/uL 0-0.8 [facility] Eosinophils [#/volume] in Blood by Automated count 0.38 10*3/uL 0-0.5 [facility] Basophils [#/volume] in Blood by Automated count 0.03 10*3/uL 0-0.2 [facility] Nucleated erythrocytes/100 leukocytes [Ratio] in Blood by Automated count 0 /100{WBCs} 0-0 [facility] ID Date Data Source [id number] 11/01/2019 05:32:43 AM EST [facility] Name Value Range Interpretation Code Description Data Sumaya rce(s) Supporting Document(s) Bicarbonate [Moles/volume] in Serum 31 mmol/L 22-29 H [facility] Chloride [Moles/volume] in Serum or Plasma 100 mmol/L 98-107 [facility] Creatinine [Mass/volume] in Serum or Plasma 0.50 mg/dL 0.50-0.90 [facility] Glucose [Mass/volume] in Serum or Plasma 95 mg/dL 70-140 [facility] Potassium [Moles/volume] in Serum or Plasma 3.9 mmol/L 3.4-5.1 [facility] Sodium [Moles/volume] in Serum or Plasma 138 mmol/L 136-145 [facility] Urea nitrogen [Mass/volume] in Serum or Plasma 6 mg/dL 6-20 [facility] Anion gap 3 in Serum or Plasma 7 mmol/L 8-15 L [facility] Osmolality of Serum or Plasma by calculation 283 mosm/kg 275-300 [facility] Creatinine/Urea nitrogen [Mass Ratio] in Serum or Plasma 12 [facility] Calcium [Mass/volume] in Serum or Plasma 8.6 mg/dL 8.6-10.0 [facility] Glomerular filtration rate/1.73 sq M pre dicted among non-blacks [Volume Rate/Area] in Serum or Plasma by Creatinine-based formula (MDRD) >6 0 [facility] Glomerular filtration rate/1.73 sq M pre dicted among blacks [Volume Rate/Area] in Serum or Plasma by Creatinine-based formula (MDRD) >60 [facility] ID Date Data Source [id number] 11/01/2019 05:32:43 AM [facility] Value Range Interpretation Code Description Data [employer] rce(s) Supporting Document(s) Magnesium [Mass/volume] in Serum or Plasma 2.1 mg/dL 1.6-2.6 [facility] ID Date Data Source [id number] 11/01/2019 05:32:43 AM [facility] Value Range Interpretation Code Description Data [employer] rce(s) Supporting Document(s) Phosphate [Mass/volume] in Serum or Plasma 4.1 mg/dL 2.5-4.5 [facility] ID Date Data Source [id number] 10/31/2019 10:35:09 PM [facility] Value Range Interpretation Code Description Data [employer] rce(s) Supporting Document(s) Glucose [Mass/volume] in Capillary blood by Glucometer 115 mg/dL 70- 140 [facility] ID Date Data Source [id number] 10/31/2019 04:22:31 PM [facility] Value Range Interpretation Code Description Data [employer] rce(s) Supporting Document(s) Glucose [Mass/volume] in Capillary blood by Glucometer 131 mg/dL 70- 140 [facility] ID Date Data Source [id number] 10/31/2019 11:33:00 AM [facility] Value Range Interpretation Code Description Data [employer] rce(s) Supporting Document(s) Glucose [Mass/volume] in Capillary blood by Glucometer 110 mg/dL 70- 140 [facility] ID Date Data Source [id number] 10/31/2019 08:07:18 AM [facility] Name Value Range Interpretation Code Description Data [employer] rce(s) Supporting Document(s) Glucose [Mass/volume] in Capillary blood by Glucometer 115 mg/dL 70- 140 [facility] ID Date Data Source [id number] 10/31/2019 04:21:05 AM [facility] Value Range Interpretation Code Description Data [employer] rce(s) Supporting Document(s) Glucose [Mass/volume] in Capillary blood by Glucometer 92 mg/dL 70- 140 [facility] ID Date Data Source [id number] 10/31/2019 07:02:44 AM [facility] Value Range Interpretation Code Description Data [employer] rce(s) Supporting Document(s) Bicarbonate [Moles/volume] in Serum 29 mmol/L 22-29 [facility] Chloride [Moles/volume] in Serum or Plasma 102 mmol/L 98-107 [facility] Creatinine [Mass/volume] in Serum or Plasma 0.51 mg/dL 0.50-0.90 [facility] Glucose [Mass/volume] in Serum or Plasma 90 mg/dL 70-140 [facility] Potassium [Moles/volume] in Serum or Plasma 3.8 mmol/L 3.4-5.1 [facility] Sodium [Moles/volume] in Serum or Plasma 141 mmol/L 136-145 [facility] Urea nitrogen [Mass/volume] in Serum or Plasma 4 mg/dL 6-20 L [facility] Anion gap 3 in Serum or Plasma 10 mmol/L 8-15 [facility] Osmolality of Serum or Plasma by calculation 288 mosm/kg 275-300 [facility] Creatinine/Urea nitrogen [Mass Ratio] in Serum or Plasma 7 [facility] Calcium [Mass/volume] in Serum or Plasma 8.4 mg/dL 8.6-10.0 L [facility] Glomerular filtration rate/1.73 sq M pre dicted among non-blacks [Volume Rate/Area] in Serum or Plasma by Creatinine-based formula (MDRD) >6 0 [facility] Glomerular filtration rate/1.73 sq M pre dicted among blacks [Volume Rate/Area] in Serum or Plasma by Creatinine-based formula (MDRD) >60 [facility] ID Date Data Source [id number] 10/31/2019 07:02:44 AM [facility] Name Value Range Interpretation Code Description Data [employer] rce(s) Supporting Document(s) Magnesium [Mass/volume] in Serum or Plasma 2.0 mg/dL 1.6-2.6 [facility] ID Date Data Source [id number] 10/31/2019 07:02:44 AM [facility] Name Value Range Interpretation Code Description Data [employer] rce(s) Supporting Document(s) Phosphate [Mass/volume] in Serum or Plasma 4.2 mg/dL 2.5-4.5 [facility] ID Date Data Source [id number] 10/31/2019 06:23:16 AM [facility] Value Range Interpretation Code Description Data Sumaya rce(s) Supporting Document(s) Calcium.ionized [Moles/volume] in Arterial blood 1.17 mmol/L 1.13-1.3 2 [facility] ID Date Data Source [id number] 10/30/2019 10:12:38 PM [facility] Value Range Interpretation Code Description Data Sumaya rce(s) Supporting Document(s) Glucose [Mass/volume] in Capillary blood by Glucometer 104 mg/dL 70- 140 [facility] ID Date Data Source [id number] 10/30/2019 06:54:25 PM [facility] Value Range Interpretation Code Description Data Sumaya rce(s) Supporting Document(s) Glucose [Mass/volume] in Capillary blood by Glucometer 110 mg/dL 70- 140 [facility] ID Date Data Source [id number] 10/30/2019 02:33:27 PM [facility] UPPER GI SERIESFINAL RESULTInterp reted by:Graciela Hickey MDUPPER GI SERIES. INDICATION: Patient has history of Nadege-en-Y gastric bypass with revision and left abdominal pain. Patient reports regurgitation of solid food and pain during tube feedings.TECHNIQUE: An initial supine appliance mechanic image of the abdomen was obtained. Single contrast upper GI series was performed. The patient swallowed barium under fluoroscopic observation. Multiple spot images of the esophagus, stomach and duodenum were obtained. COMPARISON: CT abdomen pelvis from 10/28/2019FINDINGS: The appliance mechanic image shows fusion rods and pedicle screws [...] Name Value Range Interpretation Code Description Data [facility](s) Supporting Document(s) ID Date Data Source [id number] 10/30/2019 01:09:29 PM [facility] Name Value Range Interpretation Code Description Data [facility] rce(s) Supporting Document(s) Bicarbonate [Moles/volume] in Serum 28 mmol/L 22-29 [facility] Chloride [Moles/volume] in Serum or Plasma 104 mmol/L 98-107 [facility] Creatinine [Mass/volume] in Serum or Plasma 0.56 mg/dL 0.50-0.90 [facility] Glucose [Mass/volume] in Serum or Plasma 91 mg/dL 70-140 [facility] Potassium [Moles/volume] in Serum or Plasma 3.7 mmol/L 3.4-5.1 [facility] Sodium [Moles/volume] in Serum or Plasma 140 mmol/L 136-145 [facility] Urea nitrogen [Mass/volume] in Serum or Plasma 2 mg/dL 6-20 [facility] Anion gap 3 in Serum or Plasma 8 mmol/L 8-15 [facility] Osmolality of Serum or Plasma by calculation 286 mosm/kg 275-300 [facility] Creatinine/Urea nitrogen [Mass Ratio] in Serum or Plasma 4 [facility] Calcium [Mass/volume] in Serum or Plasma 8.3 mg/dL 8.6-10.0 [facility] Glomerular filtration rate/1.73 sq M pre dicted among non-blacks [Volume Rate/Area] in Serum or Plasma by Creatinine-based formula (MDRD) >6 0 [facility] Glomerular filtration rate/1.73 sq M pre dicted among blacks [Volume Rate/Area] in Serum or Plasma by Creatinine-based formula (MDRD) >60 [facility] ID Date Data Source [id number] 10/30/2019 01:09:29 PM [facility] Name Value Range Interpretation Code Description Data [facility] rce(s) Supporting Document(s) Magnesium [Mass/volume] in Serum or Plasma 1.9 mg/dL 1.6-2.6 [facility] ID Date Data Source [id number] 10/30/2019 01:09:29 PM [facility] Name Value Range Interpretation Code Description Data [facility] rce(s) Supporting Document(s) Phosphate [Mass/volume] in Serum or Plasma 3.5 mg/dL 2.5-4.5 [facility] ID Date Data Source [id number] 10/30/2019 01:09:29 PM [facility] Value Range Interpretation Code Description Data [facility] rce(s) Supporting Document(s) Triglyceride [Mass/volume] in Serum or Plasma 138 mg/dL <150 [facility] ID Date Data Source [id number] 10/27/2019 11:19:00 AM EST [facility] 1 OrderSheet [facility] Emergency Department [address] [place] [address] Phone #: ext- [phone] 10/27/2019 11:08 Patient: LELAND DIAZ Sex: F : 1980 Age: 39yWEIGHT:65.7 kg (S) HEIGHT:67 inches (S) BMI:22.7ALLERGIES: Levaquin, Sulfa Antibiotics, traZODone HClCHIEF COMPLAINT: "not feeling well", feverDIAGNOSIS: Systemic infection, Urinary tract infectious disease, HypokalemiaLAB ORDERSOrder Description Priority Entered Acknowledged InitialedBlood Culture STAT 11:41 10/27/2019 11:42 camilo Renteria X2 (Sched Tawanda SIMMONS; Audrey Cerda.NCarmelo11:41 10/27/2019)Blood Culture STAT 11:41 10/27/2019 Ack'd: 12:17 13:11 camilo Renteria X2 (Sched Tawanda SIMMONS; Audrey Renteria R.N. R.NCarmelo11:51 10/27/2019)CBC w Diff STAT 11:41 10/27/2019 11:42 Tawanda Renteria; Audrey SousaCMP STAT 11:41 10/27/2019 11:42 Tawanda Renteria; Audrey SousaLactic Acid STAT 11:41 10/27/2019 11:42 Tawanda Renteria; uAdrey SousaUrinalysis (Clean STAT 11:41 10/27/2019 Ack'd: 12:17 12:50 John Renteria) Tawanda SIMMONS; Audrey Renteria R.N. Audrey R.N.Lipase STAT 11:43 10/27/2019 12:14 Tawanda Renteria; Audrey SousaInfluenza Nasal A B STAT 11:53 10/27/2019 12:14 Tawanda Renteria; Audrey R.N.Culture, Urine STAT 12:49 10/27/2019 13:11 Dexter,(Urine, Clean Tawanda SIMMONS; Audrey R.N.Catch) Reason for ordering with alerts: Clinical consideration given -- 12:49 10/27/2019 Tawanda Sol PACRP STAT 12:59 10/27/2019 13:11 Tawanda Renteria; Audrey R.EnochPT/PTT STAT 12:59 10/27/2019 13:11 Tawanda Renteria; Audrey R.EnochLactic Acid STAT 14:43 10/27/2019 14:44 Tawanda Renteria; Audrey R.N. NOTES: please redraw 2 OrderSheet [facility] Emergency Department [address] [place] [address] Phone #: ext- [phone] 10/27/2019 11:08 Patient: LELAND DIAZ Sex: F : 1980 Age: 39yDIAGNOSTIC STUDY ORDERSOrder Description Priority Entered Acknowledged InitialedChest Portable 1 STAT 12:49 10/27/2019 13:11 Dexter,View Tawanda SIMMONS; Audrey R.N.(Oxygen?(No)) Reason for Study: feverCT Abd PEL W/ IV STAT 12:53 10/27/2019 13:11 Dexter,Contrast Only Tawanda Ventura R.N.(Oxygen?(No))(IV?(Yes)) Reason for Study: Nausea, fever, abd pain, hx of gastric bypass and reversalMEDICATION/IV/D RIP/FLUID ORDERSOrder Description Priority Entered Acknowledged InitialedNS IV 1000 mL 11:41 10/27/2019 12:13 Dexter,Bolus: : Bolus 1000 Tawanda Ventura R.NCarmelomL (X1)NS IV : Bolus 1000 11:41 10/27/2019 12:18 Dexter,mL, then 100 mL/hr Tawanda Ventura R.NCarmelo(NOW x1)Benadryl Liquid PO 11:54 10/27/2019 Initialed: 12:13 Audrey Renteria R.N.12.5 mg (thru Tawanda SIMMONS; Refused: 12:13 Benadryl Liquid PO 12.5hickman) mg (thru galicia) was refused by patient because of can take it at home. Reason for ordering with alerts: Clinical consideration given -- 11:54 10/27/2019 Tawanda Sol PAAcetaminophen 11:54 10/27/2019 Initialed: 12:13 Audrey Renteria R.N.Liquid PO 500 mg Tawanda SIMMONS; Refused: 12:13 Acetaminophen Liquid PO(thru galicia) 500 mg (thru galicia) was refused by patient because of can take at home. Reason for ordering with alerts: Clinical consideration given -- 11:54 10/27/2019 Tawanda Sol PAPotassium Chloride 12:37 10/27/2019 Ack'd: 12:40 13:08 Dexter,IVPB 10 Tawanda SIMMONS; Audrey Renteria.Enoch Ventura R.N.meq/100mLAcetaminophen IV 12:48 10/27/2019 Ack'd: 12:50 13:10 Dexter,500 mg (NOW x1, Tawanda SIMMONS; Audrey Renteria.N. Audrey R.N.Infuse over 15minutes)Benadryl IVP 12.5 12:48 10/27/2019 Ack'd: 12:50 13:10 Dexter, 3 OrderSheet [facility] Emergency Department [address] [place] [address] Phone #: ext- [phone] 10/27/2019 11:08 Patient: LELAND DIAZ Sex: F : 1980 Age: 39ymg (NOW x1) Tawanda SIMMONS; Audrey Renteria.N. Audrey R.N.Rocephin 12:49 10/27/2019 Ack'd: 12:51 13:11 [...] mg 16:03 10/27/2019 16:10 Tawanda Renteria; Audrey R.NCarmelo Reason for ordering with alerts: Clinical consideration given -- 16:03 10/27/2019 Tawanda Sol PAGENERAL ORDERSOrder Description Priority Entered Acknowledged InitialedCardiac Monitor 11:41 10/27/2019 11:42 Dexter,(continuous) Tawanda SIMMONS; Audrey R.NCarmeloBlood Pressure 11:41 10/27/2019 11:42 Dexter,Monitor Tawanda SIMMONS; Audrey R.NCarmeloEKG 11:41 10/27/2019 11:48 Julia SIMMONS; Shobha Lee Cjpz6PEK 11:41 10/27/2019 11:42 Tawanda Renteria; Audrey R.NCarmeloPulse Oximetry 11:41 10/27/2019 11:42 Dexter,Continuous Tawanda SIMMONS; Audrey R.N.Vitals 11:41 10/27/2019 11:42 Tawanda Renteria; Audrey R.N.Vitals every 15 11:41 10/27/2019 11:42 Dexter,minutes Tawanda SIMMONS; Audrey R.NCarmeloWarm blanket 11:41 10/27/2019 11:42 Tawanda Renteria; Audrey R.N.Consult - 15:14 10/27/2019 15:23 Dexter,Hospitalist Tawanda SIMMONS; Audrey R.NCarmeloTransfer: 15:33 10/27/2019 15:39 Dexter, 4 OrderSheet [facility] Emergency Department [address] [place] [address] Phone #: ext- [phone] 10/27/2019 11:08 [id number] Sex: F : 1980 Age: 39y Tawanda SIMMONS; Audrey Sousa[Electronically signed by Audrey Renteria R.N. (18:10/27/2019)][Electronically signed by Tawanda Sol (18:10/27/2019)][Electronically locked by Audrey Renteria R.N. (:10/27/2019)] Name Value Range Interpretation Code Description Data [facility] rce(s) Supporting Document(s) ID Date Data Source [id number] 10/27/2019 11:19:00 AM EST [facility] 1 Medication Reconciliation Report [facility] Department [address] [place] [address] Phone #: ext- [phone] 10/27/2019 11:08 Patient: LELAND DIAZ Sex: F : 1980 Age: 39yWeight: 65.7 kgHeight/Length: 67 in.BMI: 22.7ALLERGIES: Levaquin, Sulfa Antibiotics, traZODone HClThe patient's Home Medications are listed below:THE FOLLOWING MEDICATIONS NEED TO BE RECONCILED: Ambien Oral 5 mg, daily, via J tube, prn,at bedtime Benadryl IV 50mg QDAY for nausea Carafate Oral 1 gm, q4h, via J tube Creon Oral ([id number] unit) 1 capsule, 4x a day, J [...] 10/27/2019 12:18:00 PM 2 Medication Reconciliation Report [facility] Department [address] [place] [address] Phone #: ext- [phone] 10/27/2019 11:08 Patient: LELAND DIAZ Sex: F : 1980 Age: 39yPotassium [...] rce(s) Supporting Document(s) ID Date Data Source [id number] 10/27/2019 11:19:00 AM EST [facility] 1 Medication Administration Record [facility] Department [address] [place] [address] Phone #: ext- [phone] 10/27/2019 11:08 Patient: LELAND DIAZ Sex: F : 1980 Age: 39yWeight: 65.7 kgHeight/Length: 67 inBMI: 22.7ALLERGIES: Levaquin, traZODone HCl, Sulfa Antibiotics Date/Time Medication Administered Medication OrderedStart NS [IV] NS IV 1000 mL Bolus: : Bolus 906441:13 10/27/2019 Dose: IV Fluids mL (X1)Audrey Renteria R.NCarmelo Rate: 1000 mL/hr over 1 hour(s)---- Dispensed: 1000 mL bagStop Site: #1 right wrist17:46 10/27/2019Audrey Renteria R.N.Start NS [IV] NS IV : Bolus 1000 mL, then 13493:18 10/27/2019 Dose: IV Fluids mL/hr (NOW x1)Audrey Renteria R.Enoch Rate: 1000 mL/hr over 1 hour(s)---- Dispensed: 1000 mL bagStop Site: #1 right wrist17:46 10/27/2019Audrey Renteria R.NCarmeloStart POTASSIUM CHLORIDE [IVPB] Potassium Chloride IVPB 1013:08 10/27/2019 Dose: 10 meq IVPB meq/100mLAudrey Renteria R.N. Rate: 100 mL/hr over 1 hour(s)---- Dispensed: 100 mL bagStop Site: #1 right wrist17:47 10/27/2019Audrey Renteria R.NCarmeloStart tylenol * Acetaminophen IV 500 mg (NOW13:10 10/27/2019 Dose: 500mg * Drip IV x1, Infuse over 15 minutes)Audrey Renteria R.N.----Stop17:47 10/27/2019Audrey Renteria R.N.Given BENADRYL [IVP] (DIPHENHYDRAMINE Benadryl IVP 12.5 mg (NOW x1)13:10 10/27/2019 HCL)Audrey Renteria R.N. Dose: 12.5 mg IVP Site: #1 right wristStart ROCEPHIN (1GM/50ML) [IVPB] Rocephin (1gm/50mL) IVPB 472197:11 10/27/2019 (CEFTRIAXONE SODIUM) mg with Dextrose 50 [...] 4 mg IVP 2 Medication Administration Record [facility] Department [address] [place] [address] Phone #: ext- [phone] 10/27/2019 11:08 Patient: LELAND DIAZ Sex: F : 1980 Age: 39yAudrey Renteria R.N. Site: #1 right wrist Name Value Range Interpretation Code Description Data [facility] rce(s) Supporting Document(s) ID Date Data Source [id number] 10/27/2019 11:19:00 AM EST [facility] 1 General Instructions [facility] Department [address] [place] [address] Phone #: ext- [phone] 10/27/2019 11:08 Patient: LELAND DIAZ Sex: F : 1980 Age: 39ySevere sepsis with shock and acute cardiovascular failure. No altered mental status or disseminatedintravascular coagulation.Acute urinary tract infection with cystitis and hematuria. Not associated with indwelling catheter orobstruction.Hypokalemia.(Electronically signed by TROY Andres 10/27/2019 18:22) Name Value Range Interpretation Code Description Data [facility] rce(s) Supporting Document(s) ID Date Data Source [id number] 10/27/2019 11:19:00 AM EST [facility] 1 Clinical Report - Nurses [facility] Department [address] [place] [address] Phone #: ext- [phone] 10/27/2019 11:08 Patient: LELAND DIAZ Sex: F : 1980 Age: 39yTRIAGE [...] via IV.). ( nausea. Pt went to [facility] on Saturday and tested negative for the flu and labwork, and all was negative per pt). Treatment TREATING PLANT PUMPER: (Tylenol 1 hour ago, Zofran 1 hour [...] Navarrete R.N. 2 Clinical Report - Nurses [facility] Department [address] [place] [address] Phone #: ext- [phone] 10/27/2019 11:08 Patient: LELAND DIAZ Sex: F : 1980 Age: 39yCreon Oral (Capsule Delayed Release Particles [id number] unit) 1 capsule, 4x a day, J [...] of abuse. 3 Clinical Report - Nurses [facility] Department [address] [place] [address] Phone #: ext- [phone] 10/27/2019 11:08 [facility]: [id number] Sex: F : 1980 Age: 39y NUTRITIONAL RISK ASSESSMENT: The nutritional risk assessment revealed no deficiencies. FUNCTIONAL ASSESSMENT: Functional assessment: no impairments noted. LEARNING NEEDS ASSESSMENT: The learning needs assessment revealed no barriers. SKIN INTEGRITY ASSESSMENT: Skin integrity risk assessment completed. No skin integrity risk identified. --11:18 10/27/19 Lucía Navarrete R.N. SELF HARM ASSESSMENT: Self [...] Renteria R.N. Interventions Identification band on patient. --11:18 10/27/19 Lucía Navarrete R.N.PHYSICAL ASSESSMENT ( pt. with [...] Lucía Navarrete R.N. ( EKG performed by tech at 11:19 given to provider). --11:49 10/27/19 Shobha Peralta ED, ER Tech1 11:45 10/27/19. BP: 116/92. MAP: 100. --11:56 10/27/19 [place] [employer], [facility] Tech1 4 Clinical Report - Nurses [facility] Department [address] [place] [address] Phone #: ext- [phone] 10/27/2019 11:08 Patient: LELAND DIAZ Sex: F : 1980 Age: 39y12:03 10/27/19. BP: 86/68. MAP: 74. --12:03 10/27/19 [place] [employer], Shobha, Hvgb007:10 10/27/2019 Site #1 started via IV in [...] 21. O2 sat uration: 100%. --12:32 10/27/19 [facility], ER Knai070:45 10/27/19. BP: 92/58. MAP: 69. HR: 104. RR: 24. O2 saturation: 100%. --12:50 10/27/19 [facility], Gwcq432:03 10/27/19. BP: 99/71. MAP: 80. HR: 57. RR: 16. O2 saturation: 100%. --13:03 10/27/19 [facility] Uluj740:08 10/27/2019 Started 10 meq of Potassium Chloride [...] patency established. 5 Clinical Report - Nurses [facility] Department [address] [place] [address] Phone #: ext- [phone] 10/27/2019 11:08 Patient: LELAND DIAZ Sex: F : 1980 Age: 39yIV site checked: no pain, redness, or swelling. IV flushed thoroughly pre- and post-medicationadministration. Information reviewed with patient. Verbalizes understanding. --13:11 10/27/19 Audrey Renteria R.N.13:22 10/27/19. BP: 86/58. MAP: 67. HR: 101. RR: 16. O2 saturation: 100%. --13:22 10/27/19 Julia ReelBig Shobha, Virgil SecurityFuto7Teiioficvaho after medication administered. She reports no complaints and she is resting quietly.--13:39 10/27/19 Audrey Renteria R.N.13:46 10/27/19. BP: 80/49. MAP: 59. HR: 91. RR: 9. O2 saturation: 100%. --13:46 10/27/19 Julia GuestMetricsShobha, Jeiy977:00 10/27/19. BP: 85/60. MAP: 68. HR: 102. RR: 17. O2 saturation: 100%. --14:06 10/27/19 [place] [employer] Shobha Tech1( Pt placed in reverse trendelenberg per PA request for BP; Pt c/o back pain however remainshypotensive; Will reassess). --14:10 10/27/19 Lucía Navarrete R.N.14:17 10/27/19. BP: 83/50. MAP: 61. HR: 87. RR: 19. O2 saturation: 100%. --14:17 Located within [facility] Shobha Bmwb2Zqoyibn transported to [place] by wheelchair with tech. --14:28 10/27/19 Lucía Navarrete R.N.14:42 10/27/19. BP: 84/55. MAP: 64. HR: 85. RR: 20. O2 saturation: 100%. --14:43 10/27/19 Located within [facility] Shobha, Jywf5Zkf patient is resting quietly and has had no adverse reaction. Overall patient status is the same- shestates feels the same. --14:53 10/27/19 Audrey Renteria R.N.15:01 10/27/19. BP: 83/57. MAP: 65. HR: 90. RR: 18. O2 saturation: 100% on room air. Temp: 98.6 F(temporal). --15:02 10/27/19 Lucía Navarrete R.N.15:20 10/27/19. BP: 83/61. MAP: 68. HR: 92. RR: 20. O2 saturation: 100%. --15:20 10/27/19 Located within [facility] Cozm577:30 10/27/19. BP: 88/54. MAP: 65. HR: 89. RR: 16. O2 saturation: 99%. --15:34 [facility]/27/19 [facility] Wmiz294:48 10/27/19. BP: 91/61. MAP: 71. HR: 92. RR: 18. O2 saturation: 98%. --15:48 10/27/19 [facility] Jilx614:00 10/27/19. BP: 88/60. MAP: 69. HR: 97. RR: 13. O2 saturation: 100%. --16:04 10/27/19 [facility]ated within [facility] T ech1 6 Clinical Report - Nurses [facility] Department [address] [place] [address] Phone #: ext- [phone] 10/27/2019 11:08 Patient: LELAND DIAZ Sex: F : 1980 Age: 39y [...] RR: 17. O2 saturation: 100%. --16:31 10/27/19 [facility] Tech The patient reports no complaints and she is resting quietly. --16:35 10/27/19 Audrey Renteria R.N. 17:01 10/27/19. BP: 83/50. MAP: 61. HR: 89. RR: 16. O2 saturation: 100%. --17:02 10/27/19 [facility] Tech1 17:46 10/27/2019 IV Fluids NS via IV [...] Renteria R.N. 7 Clinical Report - Nurses [facility] Department [address] [place] [address] Phone #: ext- [phone] 10/27/2019 11:08 --------- Patient: LELAND DIAZ Sex: F : 1980 Age: 39y Condition at departure: stable. Transported via stretcher by news department intern, EMS and transport team with monitor, [...] rce(s) Supporting Document(s) ID Date Data Source [id number] 10/27/2019 11:19:00 AM [facility] 1 Clinical Report - Physicians/Mid Levels [facility] Department [address] [place] [address] Phone #: ext- [phone] 10/27/2019 11:08 Patient: LELAND DIAZ Sex: F : 1980 Age: 39y Time Seen: 11:21 10/27/2019. Arrived- By private vehicle. Historian- patient. Disposition decision: 15:17 10/27/2019.HISTORY OF PRESENT ILLNESS Chief Complaint: FEVER and "NOT FEELING WELL". This started about 5 days ago; Intermittent fever, not feeling well since Saturday of last week. Pt had blood transfusion at [facility] last and states she started to [...] Pain. 2 Clinical Report - Physicians/Mid Levels [facility] Department [address] [place] [address] Phone #: ext- [phone] 10/27/2019 11:08 Patient: LELAND DIAZ Sex: F : 1980 Age: 39yBack Injury.Back Pain.Pulmonary Embolism.Other Disease.UTI - Urinary Tract Infection.Respiratory Distress.Status Epilepticus.GI Disease.GI Bleeding.Malabsorption syndrome.Hypoxia.Lung Disease.Additional Surgeries:Abd for obstruction.Bariatric Surgery.Bowel resection.Bowel Resection [2016].Cholecystectomy.Feeding Tube Placement.Gastric bypass.Gastric bypass reversal [08/2019].Gastric Resection [2009].GI bleed clipping.G-Tube Placement.Hysterectomy.J-tube placement.J-Tube placement.Life port removed.Lifeport [10/2017].Portacath left chest.Nadege-en-Y gastrojejunostomy [2009].Spinal fusion.Spinal fusion.Medications:Creon Oral (Capsule Delayed Release Particles [id number] unit) 1 capsule, 4x a day, J [...] nausea. 3 Clinical Report - Physicians/Mid Levels [facility] Department [address] [place] [address] Phone #: ext- [phone] 10/27/2019 11:08 Patient: LELAND DIAZ Sex: F : 1980 Age: 39y Protonix [...] EKG. 4 Clinical Report - Physicians/Mid Levels [facility] Department [address] [place] [address] Phone #: ext- [phone] 10/27/2019 11:08 Patient: LELAND DIAZ [facility]#: [id number] Sex: F : 1980 Age: 39yThe study [...] making process.Lactic Acid: (LUISANA: 10/27/2019 15:10) ( [facility] [place] 10/27/[place] 15:38) Final results Test Result Flag Units (Reference) LACTIC ACID 2.7 H MMOL/L (0.2 - 2.2)CRP: (LUISANA: 10/27/2019 11:30) ( MsgRcvd 10/27/2019 13:43) Final results Test Result Flag Units (Reference) CRP-HS 34.55 H MG/L (1.00 - 3.00) CDC/S HS-CRP CUT- OFF: RELATIVE RISK: <1.0 mg/LLow 1.0 - 3.0 mg/L Average >3.0 mg/LHigh Optimally, the average of HS-CRP results repeated two weeks apart should be used forrisk assessment.PT/PTT: (LUISANA: 10/27/2019 11:30) ( Mscvd 10/27/2019 13:21) Final results Test Result Flag Units (Reference) PROTIME 13.3 SECONDS (11.0 - 15.5) INR 1.00 (0.93 - 1.23) PTT 34.3 SECONDS (24.8 - 36.7) \\BLDo\\INR INTERPRETATION\\BLDx\\ Therapeutic range for Coumadin andrelated oral anticoagulants. -International Normalized Ratio (INR): 2.0 - 3.0 for VenousThrombosis, Pulmonary Embolus, Tissue heart valves, Acute ND Atrial Fibrillation, Valvular heart diseaseand recurrent Systemic [...] IV Contrast Only: (LUISANA: 10/27/2019 12:53) ( MsgRcvd 10/27/2019 15:37) In ProgressCT ABDReason(s): Nausea, fever, abd pain, hx of gastric bypass and reversalTRANSPORTATION: S IV? IV?(Yes) O2? Oxygen?(No) Ro: HysterectomyCulture, Urine: (LUISANA: 10/27/2019 12:49) ( MsgRcvd 10/27/2019 12:53) CanceledSOURCE: Urine, Clean CatchChest Portable 1 View: (LUISANA: 10/27/2019 12:49) ( MsgRcvd 10/27/2019 14:39) In ProgressCHEST PORTABLEReason(s): feverTRANSPORTATION: P IV? O2? Oxygen?(No) Room: ED 5 Clinical Report - Physicians/Mid Levels [facility] Department [address] [place] [address] Phone #: ext- [phone] 10/27/2019 11:08 Patient: LELAND DIAZ Sex: F : 1980 Age: 39y: No [place]am [place] [address] PHONE: [phone] FAX: [phone] Name .................. : BASILIO Torres Acct Number.................. : [id number] ROOM. ................. : TR-07 MR Number ................... : [id number] Stay type ............. : E/R Discharge Date......... ... : Admit Date ......... : 10/27/19 Admit Phys .................... : EBENEZER NAGI Date of ....... : 1980 Family Phys ................... : [employer] Phone .................. : [phone] Age ........... ..................... : 39 Film# .................. .:[id number] Sex ................................. : F Unsigned transcriptions are preliminary reports and do not represent a medical or legal document CHEST PORTABLE [id number] COMPLETE:10/27/19 13:04 ARS [id number] Reason(s): fever PORTABLE CHEST X-RAY: COMPARISON: Prior [...] this dictation. Electronically Reviewed and Signed By DCTIRENE , SIGNDATERHEA Transcribe Initials: BECK , Transcribe Date: 10/27/19 14:31, Dictation Date: <<REPDIST>>Page 1 of 1Influenza Nasal A B: (LUISANA: 10/27/2019 12:33) ( MsgRcvd 10/27/2019 13:09) Final results Test Result Flag Units (Reference) INFLUENZA A NEGATIVE (NORMAL: NEGAT INFLUENZA B NEGATIVE (NORMAL: NEGAT INFLUENZA A REENTER NEGATIVE (NORMAL: NEGAT INFLUENZA B REENTER NEGATIVE (NORMAL: NEGAT PROCEDURAL CONTROL VALID KIT LOT # _[id number] 10/27/19.1308.[place] . . . KIT EXP DATE _06/01/20 6 Clinical Report - Physicians/Mid Levels [facility] Department [address] [place] [address] Phone #: ext- [phone] 10/27/2019 11:08 Patient: LELAND DIAZ Sex: F : 1980 Age: 39y10/27/19.1308.[place] . . .The Influenza A utilizing an isothermal nucleic acid amplification technologyfor thequalitative detection of influenza A and B viral RNA.Negative results do not preclude influenza virusinfection and should not beused as the sole basis for diagnosis, treatment or other patient managementdecisions.Blood Culture: (LUISANA: 10/27/2019 11:51) ( [facility] [place] 10/27/2019 12:53) CanceledLipase: (LUISANA: 10/27/2019 11:30) ( [facility] [place] 10/27/2019 12:32) Final results Test Result Flag [...] 1.3) 7 Clinical Report - Physicians/Mid Levels [facility] Department [address] [place] [address] Phone #: ext- [phone] 10/27/2019 11:08 Patient: LELAND DIAZ Sex: F : 1980 Age: 39y [...] Normal Lactic Acid: (LUISANA: 10/27/2019 11:30) ( MsgRcvd 10/27/2019 11:59) Final results Test Result Flag Units (Reference) LACTIC ACID 3.2 H MMOL/L (0.2 - 2.2) Urinalysis: (LUISANA: 10/27/2019 12:00) ( MsgRcvd 10/27/2019 12:38) Final results Test Result Flag [...] Oct 27 2019. Records reviewed from recent [facility] visit, pt with essentially benign labs CXR, pt AMA'ed from ED. 15:20 Oct 27 2019. s/s c/w sepsis secondary to ascending UTI, mild hypokalemia, ? mid mesenteric internal hernia. Hospitalist here feels pt needs transfer to higher level of care, no TPN at [facility]. awaiting call back from [facility] transfer center. 16:06 Oct 27 2019. Pt will be transferred to Dr Hall, hospitalist service, [facility], for further evaluation and treatment. Critical care performed (30 minutes). Time is exclusive of separately billable procedures. Time includes: 8 Clinical Report - Physicians/Mid Levels [facility] Emergency Department [address] [place] [address] Phone #: [phone] 10/27/2019 11:08 Patient: LELAND DIAZ Sex: F : 1980 Age: 39y direct patient care, patient reassessment, coordination of patient care, interpretation of data (laboratory data, pulse oximetry, chest xrays and prior electrocardiograms), review of patient's medical records, medical consultation and documentation of patient care- see progress notes. Disposition: Benefits, risks and alternatives to transfer explained to patient. Transferred to [facility]. UTI (catheter associated) was not [...] rce(s) Supporting Document(s) ID Date Data Source [id number] 10/27/2019 11:19:00 AM [facility] for LELAND DIAZ VisitID: [id number] Date: 9:51Pt BC growing Enterobacteriaceae species and serratia marcescens detected via [place], prelimsshowing gram negative rods; Spoke to Jessica at [address] [place] [address] and faxed to [phone] at 0829(Electronically signed by Lucía Navarrete R.N. - 10/28/2019 9:51)10/29/2019 18:05Pt urine culture growing 10-20,000 Klebsiella Pneumoniae, [facility] transferred [facility] at [facility] andwas faxed to [phone] at 0848; BC growing serratia marcescens and this was faxed to them as wellat [phone](Electronic ally signed by Lucía Navarrete R.N. - 10/29/2019 18:05) Name Value Range Interpretation Code Description Data [facility] rce(s) Supporting Document(s) ID Date Data Source [id number] 10/29/2019 03:49:09 PM [facility] MR LUMBAR SPINE WITH AND WITHOUT CONTRAS T [id number] RESULTInterpreted by:Kamran Coyne MD10/28/2019 1:25 PM MR LUMBAR SPINE WITH AND WITHOUT CONTRAST [id number] CLINICAL INFORMATION: r/o abscess, infection in L4-L5 [...] Name Value Range Interpretation Code Description Data [facility] rce(s) Supporting Document(s) ID Date Data Source [id number] 10/29/2019 11:12:35 AM [facility] XR ABDOMEN AP ERECT ONLY [id number] RESU LTInterpreted by:Jessica Carlson MDIndication: Patient was supposed to have an upper GI with a small bowel series to evaluate for motility after reversal of Nadege-en-Y gastric bypass.TECHNIQUE: A appliance mechanic radiograph was performed on 10/29/2019 and compared [...] rce(s) Supporting Document(s) ID Date Data Source [id number] 10/28/2019 11:44:00 PM [facility] [address] [place], [place] [address] [address] RESPIRATORY CARE REPORT ==== ---------NAME------- NUMBER SEX AGE ADMIT DISCCarmelo ALDANA# F/C ADOLFO Torres [id number] F 39 10/27/19 10/27/19 [id number] BB2 E/R DATE OF : 1980 M/R# [id number] #: [id number] TR-07 LOCATION: EMERGENCY DEPT EKG [id number] COMP LETE:10/28/19 02:12 VMT [id number] PHYSICIAN: EBENEZER LAZAR Name Value Range Interpretation Code Description Data [facility] rce(s) Supporting Document(s) ID Date Data Source [id number] 10/28/2019 04:47:15 PM [facility] Name Value Range Interpretation Code Description Data [facility] rce(s) Supporting Document(s) [facility] CRNVXj1eWnXRCkKf72/[id number]WR7pH2dXAD7HFtHTiAzRmPzWSI8 lbm [file] 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 : BASILIO Braunt Number.................. : [id number] ROOM. ................. : TR-07 Number ................... : [id number] Stay type ............. : E/R Discharge Date......... ... : 10/27/19 Admit Date ......... : 10/27/19 Admit Phys .................... : EBENEZER NAGI Date of ....... : 1980 [facility] Phone .................. : [phone] Age ................................ : 39 Film# .................. .:[id number] Sex ................................. : F Unsigned transcriptions are preliminary reports and do not represent a medical or legal document CT ABD & PELVIS W/ IV ONLY [id number] COMPLETE:10/27/19 15:35 [facility] 12584 Reason(s): Nausea, fever, abd pain, hx of [...] imperative reconstructive techniques. Page 1 of 2 [facility] [address] [place] [address] [place] [address] PHONE: [phone] FAX: [phone] Name .................. : BASILIO Torres Acct Number.................. : [id number] ROOM. ................. : TR-07 MR Number ................... : [id number] Stay type ............. : E/R Discharge Date......... ... : 10/27/19 Admit Date ......... : 10/27/19 Admit Phys .................... : EBENEZER NAGI Date of ....... : 1980 Family Phys ................... : [employer] Phone .................. : [phone] Age ................................ : 39 Film# .................. .:[id number] Sex ................................. : F Unsigned transcriptions are preliminary reports and do not represent a medical or legal document CT ABD & PELVIS W/ IV ONLY 41188 COMPLETE:10/27/19 15:35 [facility] 10755 Reason(s): Nausea, fever, abd pain, hx of gastric bypass and reversal CT dose: 703.5 mGycm Contrast agent in mL: 75 Isovue 370 Method of administration: Intravenous Electronically Reviewed and Signed By Eleuterio Dukes M.D. , 10/28/19 11:17, [place] Transcribe Initials: BECK , Transcribe Date: 10/27/19 22:33, Dictation Date: Copy for: EBENEZER Morales via fax Copy for: EMERGENCY DEPT via modem Copy for: 710 MED REC DISCHARGED Page 2 of 2 Name Value Range Interpretation Code Description Data [facility] rce(s) Supporting Document(s) ID Date Data Source [id number] 10/28/2019 11:02:00 AM EST [facility] [address] [place] [address] PHONE: [phone] FAX: [phone] Name .................. : BASILIO Torres Acct Number.................. : [id number] ROOM. ................. : TR-07 Number ................... : [id number] Stay type ............. : E/R Discharge Date......... ... : Admit Date ......... : 10/27/19 Admit Phys .................... : EBENEZER LAZAR Date of ....... : 1980 Family Phys ................... : [facility] Phone .......... ........ : [phone] Age ................................ : 39 Film# .................. .:[id number] Sex ................................. : F Unsigned transcriptions are preliminary reports and do not represent a medical or legal document CHEST PORTABLE 15416 COMPLETE:10/27/19 13:04 ARS 89581 Reason(s): fever PORTABLE CHEST X-RAY: COMPARISON: Prior [...] By Eleuterio Dukes M.D. , 10/28/19 11:02, [facility] Transcribe Initials: BECK , Transcribe Date: 10/27/19 14:31, Dictation Date: Copy for: EBENEZER Morales via fax Copy for: EMERGENCY DEPT via modem Copy for: 710 MED REC DISCHARGED Page 1 of 1 Name Value Range Interpretation Code Description Data [facility] rce(s) Supporting Document(s) ID Date Data Source [id number] 10/28/2019 07:43:27 AM [facility] Name Value Range Interpretation Code Description Data [facility] rce(s) Supporting Document(s) Natriuretic peptide.B prohormone N-Terminal [Mass/volu me] in Serum or Plasma 501 pg/mL <125 [facility] ID Date Data Source [id number] 10/28/2019 07:43:27 AM [facility] Name Value Range Interpretation Code Description Data [facility] rce(s) Supporting Document(s) C reactive protein [Mass/volume] in Serum or Plasma 91.2 mg/L <8.0 [facility] ID Date Data Source [id number] 10/28/2019 07:43:27 AM [facility] Name Value Range Interpretation Code Description Data [facility] rce(s) Supporting Document(s) Ferritin [Mass/volume] in Serum or Plasma 69 ng/ml 13-150 [facility] ID Date Data Source [id number] 10/28/2019 07:43:27 AM [facility] Value Range Interpretation Code Description Data [facility] rce(s) Supporting Document(s) Albumin [Mass/volume] in Serum or Plasma by Bromocresol green (BCG) dye binding method 2.9 g/dL 3.5-5.2 [facility] Bilirubin.total [Mass/volume] in Serum or Plasma 0.9 mg/dL <1.2 [facility] Calcium [Mass/volume] in Serum or Plasma 7.8 mg/dL 8.6-10.0 L [facility] Chloride [Moles/volume] in Serum or Plasma 105 mmol/L 98-107 [facility] Creatinine [Mass/volume] in Serum or Plasma 0.67 mg/dL 0.50-0.90 [facility] Glucose [Mass/volume] in Serum or Plasma 107 mg/dL 70-140 [facility] Alkaline phosphatase [Enzymatic activity/volume] in Serum or Plasma 205 U/L 35-104 [facility] Potassium [Moles/volume] in Serum or Plasma 3.3 mmol/L 3.4-5.1 L [facility] Protein [Mass/volume] in Serum or Plasma 5.2 g/dL 6.4-8.3 L [facility] Sodium [Moles/volume] in Serum or Plasma 136 mmol/L 136-145 [facility] Aspartate aminotransferase [Enzymatic activity/volume] in Serum or Plasma 25 U/L <32 [facility] Urea nitrogen [Mass/volume] in Serum or Plasma 8 mg/dL 6-20 [facility] Osmolality of Serum or Plasma by calculation 281 mosm/kg 275-300 [facility] Creatinine/Urea nitrogen [Mass Ratio] in Serum or Plasma 11 [facility] Bicarbonate [Moles/volume] in Serum 21 mmol/L 22-29 [facility] Alanine aminotransferase [Enzymatic activity/volume] in Seru m or Plasma 14 U/L <33 [facility] Anion gap 3 in Serum or Plasma 11 mmol/L 8-15 [facility] Albumin/Globulin [Mass Ratio] in Serum or Plasma 1.0 [facility] Glomerular filtration rate/1.73 sq M pre dicted among non-blacks [Volume Rate/Area] in Serum or Plasma by Creatinine-based formula (MDRD) >6 0 [facility] Glomerular filtration rate/1.73 sq M pre dicted among blacks [Volume Rate/Area] in Serum or Plasma by Creatinine-based formula (MDRD) >60 [facility] ID Date Data Source [id number] 10/28/2019 07:43:27 AM [facility] Name Value Range Interpretation Code Description Data [facility] rce(s) Supporting Document(s) Magnesium [Mass/volume] in Serum or Plasma 1.7 mg/dL 1.6-2.6 [facility] ID Date Data Source [id number] 10/28/2019 08:04:02 AM [facility] Name Value Range Interpretation Code Description Data [facility] rce(s) Supporting Document(s) Erythrocyte sedimentation rate 18 mm/hr <20 [facility] ID Date Data Source [id number] 10/28/2019 08:04:13 AM [facility] Name Value Range Interpretation Code Description Data [facility] rce(s) Supporting Document(s) Leukocytes [#/volume] in Blood by Automated count 5.0 10*3/uL 4-10 [facility] Erythrocytes [#/volume] in Blood by Automated count 3.70 10*6/uL 4.1- 5.3 [facility] Hemoglobin [Mass/volume] in Blood 8.9 g/dL 11.5-15.5 [facility] Hematocrit [Volume Fraction] of Blood by Automated count 27.7 % 3 6-45 [facility] Erythrocyte mean corpuscular volume [Entitic volume] by Auto mated count 74.9 fL 80-96 [facility] Erythrocyte mean corpuscular hemoglobin [Entitic mass] by Automated count 24.1 pg 27-33 [facility] Erythrocyte mean corpuscular hemoglobin concentration [Mass/volume] by Automated count 32.2 g/dL 32.0-36.0 [facility] Erythrocyte distribution width [Ratio] by Automated count 18.4 % 11.5-14.5 [facility] Platelets [#/volume] in Blood by Automated count 250 10*3/uL 150-400 [facility] Differential cell count method - Blood [facility] Neutrophils/100 leukocytes in Blood by Automated count 52 % [facility] Lymphocytes/100 leukocytes in Blood by Automated count 4 % [facility] Monocytes/100 leukocytes in Blood by Automated count 8 % [facility] Basophils/100 leukocytes in Blood by Automated count 1 % [facility] Neutrophils [#/volume] in Blood by Automated count 2.60 10*3/uL 1.8-7 .0 [facility] Lymphocytes [#/volume] in Blood by Automated count 0.20 10*3/uL 1.2-4 .0 L [facility] Monocytes [#/volume] in Blood by Automated count 0.40 10*3/uL 0-0.8 [facility] Basophils [#/volume] in Blood by Automated count 0.05 10*3/uL 0-0.2 [facility] Band form neutrophils/100 leukocytes in Blood by Manual count 34 % [facility] REVIEWED BY TECH 6509 Metamyelocytes/100 leukocytes in Blood by Manual count 1 % [facility] Band form neutrophils [#/volume] in Blood by Manual count 1.70 10*3 /uL 0-0.6 H [facility] Metamyelocytes [#/volume] in Blood by Manual count 0.05 10*3/uL 0-0 [facility] Anisocytosis [Presence] in Blood by Light microscopy [facility] Elliptocytes [Presence] in Blood by Light microscopy [facility] Microcytes [Presence] in Blood by Light microscopy [facility] Spherocytes [Presence] in Blood by Light microscopy [facility] ID Date Data Source [id number] 10/28/2019 10:30:51 AM [facility] Name Value Range Interpretation Code Description Data [facility] rce(s) Supporting Document(s) Iron [Mass/volume] in Serum or Plasma 15 ug/dl 37-145 L [facility] Transferrin [Mass/volume] in Serum or Plasma 204 mg/dL 200-360 [facility] Iron binding capacity [Mass/volume] in Serum or Plasma 283 ug/dl 228 -428 [facility] Iron saturation [Mass Fraction] in Serum or Plasma 5.0 % 20-55 [facility] ID Date Data Source [id number] 10/28/2019 01:25:48 PM [facility] Name Value Range Interpretation Code Description Data [facility] rce(s) Supporting Document(s) Phosphate [Mass/volume] in Serum or Plasma 2.8 mg/dL 2.5-4.5 [facility] ID Date Data Source [id number] 10/28/2019 07:06:26 AM [facility] Name Value Range Interpretation Code Description Data [facility] rce(s) Supporting Document(s) Lactate [Moles/volume] in Serum or Plasma 1.8 mmol/l 0.5-2.2 [facility] ID Date Data Source [id number] 10/28/2019 04:47:[address] [facility] CT ABDOMEN PELVIS WITH CONTRAST [id number] AL RESULTInterpreted by:BRITTANY RaeROCEDURE INFORMATION: Exam: CT Abdomen And Pelvis With [...] factors), consider optional CT at 12 months. (diamond Meyer al., Fleischner [employer], 2017) THIS DOCUMENT HAS BEEN ELECTRONICALLY SIGNED BY JONN ROWE MDThis document has been electronically signed by Jonn Rowe MD on 10/28/2019 4:47 AM Name Value Range Interpretation Code Description Data [facility] rce(s) Supporting Document(s) ID Date Data Source [id number] 11/02/2019 10:30:52 AM [facility] Service Cmnt XXX-Imp : LT HANDMicroorgan ism XXX Cult : No growth (qualifier value) Name Value Range Interpretation Code Description Data [facility] rce(s) Supporting Document(s) ID Date Data Source [id number] 11/02/2019 10:30:52 AM [facility] Service Cmnt XXX-Imp : RT HANDMicroorgan ism XXX Cult : No growth (qualifier value) Name Value Range Interpretation Code Description Data [facility] rce(s) Supporting Document(s) ID Date Data Source [id number] 10/28/2019 12:09:24 AM [facility] Name Value Range Interpretation Code Description Data [facility] rce(s) Supporting Document(s) History and Physical [facility] OLQDBk6cMoMCUrOp93/SSNuoTEHfe4WfSOxkYWm0QTjwRWXcK2KkYPO9bJ6pCJG3SYvKWxDsBtLfQQC8 lbm HmWbtEUcJqZTDgRsbDTuAmKKfwWcvpkVTqJQ1NcMA5HUYbV16tKMMmHVPfL3FjBYB6PGI+Gd5XTCJkhK UwZL2DFbeN2J1poppYUz2qmZ/IweEYB1Gzfx+MclYr0eEOI7KlZJDE8zQkgfWnYEaBkGN02609mamUPy q9i4CeDpTuT+7aNoW92fz3MNf834mnM/qWZZnsT/3P RChGaF5305/M+nDExO4g/2A7ZB6dgAfWgm/Sn5u3Hf/4/kuse9LSDa6qJeVBh5iMhOXJhQEmpKyc1nWf TL1I31GpA/MxDa0kX/POfHpyeHJkbNu3/pl32M304grS6+pWuGdB5vCWd02iA3+dEfDT8ADGnkTsqsR9 uvGSfXlWiIvmAeRmrhH2X1wu43R/PmZMp2tC+ShF+i cJcEVgFlTmb7PcDrMTQh5a0LdmO9iadZKpNhzyHr/xWlB4iJgWnYKVsbc07HB0oo30OSsgsUAX/hqX0p VxHVkx4P+WDBbSwXsLvGlGpO9CL9uqbUO7ATqe3l89JmeOA3iF9KD4YT4qCtddsd+Ur3FLePIpNyTCXj SezMH77/QsX2DuM+PtB/q28YiofSOaIEq5vWo9+X7Y oTbV68PHvid6TvDwJeK2IuBxd54Hqew3x8pmqA3N3afPzs7kD6vu7Zl5ZzFQoXssISD2rDE2fj62BSij 1/ry+3KpU9SRVCqb3gDZwWxXCtuTzxFqCa3apInJ7ENNqB2rHiJvwPqbVc8DujBLUi7jnwscHM8CtYn0 c9mkvnw5bAN18JKC/CbRDHdKZKXMMGSH8/PJNEWnGE Hernandez+II4x/zt1PY1MWaHHWoeJuQrJCSHQzIz+LqJ0HMA1XOAAf33torN5Ssuh0zeCyOqmtr6dd3E+TCMit [file] AgICAgICAgICAgICAgICAgICAgICAgICAgICAgICAg GLMbPUPbGFCwJYLqYFRkQASsWVVzZWJcTKJeDPZqJKFiJCKwHPZgYDPtBTAyKL8YMVPhPVBzGCVpDKNs ICAgICAgICAgICAgICAgICAgICAgICAgICAgICAgICAgICAgICAgICAgICAgICAgICAgICAgICAgICAg XNHcRITiGSVuMCNpIWLwNILbYEEoZDKeNKFdQT6FFK AgICAgICAgICAgICAgICAgICAgICAgICAgICAgICAgICAgICAgICAgICAgICAgICAgICAgICAgICAgIC InKTVnXLNjCLVcZVYwDQFlVCOgYICnCIWnCKPpQFBvCOMtVIGjNL7ZAELuPPTlJFMtAERaIHPfQIRiQA AgICAgICAgICAgICAgICAgICAgICAgICAgICAgICAg XXRcDTSdQSBqJCEmJJXiPGTyFJYzSOXuIMIcBVWlBVGpUWAfBGAfNWVwGAEyVEGrSQ0UCNOxAQLjHXLu ICAgICAgICAgICAgICAgICAgICAgICAgICAgICAgICAgICAgICAgICAgICAgICAgICAgICAgICAgICAg ICAgICAgICAgICAgICAgICAgICAgICAgICAgICAgIA 0KICAgICAgICAgICAgICAgICAgICAgICAgICAgICAgICAgICAgICAgICAgICAgICAgICAgICAgICAgIC YnULKrAFBbONLeUBAkFLYyMDWnMRMbMDKuWGFaRVMxLMOpLADhWCHyAJ8OTVOjBUCbKSOqACPoRWGhFT AgICAgICAgICAgICAgICAgICAgICAgICAgICAgICAg VRQbLVThPPJtRNFtSECuNTEvPZPkETWeRFQpSSXlHNSnJIHkVSWsUKUzZRJxSPOwBTBfVL5FYIMjRBLc ICAgICAgICAgICAgICAgICAgICAgICAgICAgICAgICAgICAgICAgICAgICAgICAgICAgICAgICAgICAg ICAgICAgICAgICAgICAgICAgICAgICAgICAgICAgIC YeIY8LSRIzOKMxDAOlWZYtELUgVZEdNHPmDZTsRTTqYABfPGZjBOXbCINiFXHvINGmUVNvUYDxSQCwMY LvSLHvTOUzMXCoRFLjCJMdVPTiKOKnXQUaWOQmKUFwBEWeOOWtZMUwEZGnMH2VDIFkBYRqBXSeBIFvJQ AgICAgICAgICAgICAgICAgICAgICAgICAgICAgICAg TORpSYUcHWHfTJPjVBDfQFWkVKYuUSBgWASwSCEbEVTrZRDfPGDjJEStIIHtECDtTSDpXQRvKW7TZM07 fWDdz4L9YXTfZV0vcez/Sn3HUOlosoHxdECyGP2DToItHN2rux7JLdIpEJ8bds1NSPtBMsWbW8L9xCLk MRJwKCZHYfPzK21sOHmmTe46XCsbHDKuIxSpELm2Ei 7NBqCoD5snMNUvLcU6KYOoXyT4FMQmBdT3LYZxMoRwIWVvBSJhQUGwTECGNRJ5YTMsMoKyZfNnKNAdPB 6NCPZfK573utHaFn7SBh2XBdFgBE2pcv8YYeRuEJYeZuqFExf0ZQurOI8FfPMviRHjJIQeOTOKYpCvM6 ufw5CkZuPuYIOZDFknRR8Zo7HyaBWqMQs+Px7VVN2o j1KyNPawKFGpTS5hhi5WAPgWHfDjE7XxuEwlZQnnOEBhxDAAFTEwXUOrAHEoJNjkOD7HUTP8KHVcAm1x WLRzNLT5RgK1KIKSMF2XZCScILHirGDtVVIyEMCDSY3YKSlmCQY0DEVqkkIrjNAqFRciMR1QOEIdsqJq MzQgMCBSDQo+Nq9XCH4wv4FqKSfgJgIcGP3kij3XEP uGRlHbF2O2kSOfJ6D6CKdqDs5QRMVfEUSuVqRzPCBBRMzyOW3ACB5cgcE1GT4EhNYaOPGoULVueBQxOY r6I19msIVbNNnjSG7MXAR+Savannah+Gc1TESYzKIToWPJeJdNjLWWJNbJhI8KuA4DSb6ZuM0FqQE15oZjduj JpPHdfTN5GYC3gYDOlDHBMWS1QoLVeeP1wpsIfMDGk FOZBDkBsY21niKVwFHWjIVBoPNHaWl9HXPWfM8MdggXspHhzlpShHQZlDIANPD3DWBosgtSjxDQlaMur AO48lQnqEP3SPs4DOuZwVG8xcf3LuOGwKz2FKJPvTk1AXJNdUVLuXLIdDWX4DYUnNoUlHHrqKVNhAZLt POZ1AYMnAPKgUP6VSvVwTZTbGAWxDSsrKGMeBDJdsd 7ZBXXjVQO3PMo8OcSqPLCnAOKdBOxcQJBoEXClZES2BWDxGMPkZQ6YLiVfEYVzZBA6OlDnQWCuCIPvbk 4LVJGwNZVkFCwsMoSkUTSnOJVnWUneZFYfRQH3VCgcQPRzBFYrCS8WRoCmXTAxKTjdUCMuUJPdXOYzpj 5ZBFIbYTCuBBO5CEHqTPXyOCTzTWdbUZLcFTHpSxP5 HXWnHXNrDI8SYmQdZUFsWHPpEOGxIHJsPFBfee1ANYCgVXEiQnO4CkRlDBXeQMWlJJuwUHLtJDHmQDO9 OFBdCFVqLX5XNvNoHHOxLtW8ZHDkEMHiXQOibd3TZZHoREJnRta8ICYrRQYqAYTyCBxoCIVjCFQ4YKl8 DPYeCMRuYR9DDcSzPWCyRoN7ISRdKTWfEDZuch1DJK CuXNGnAcn7TDMzMDDmYQYlYLycJAOgBRR0GHRoOHZwGMZiKH5ILuLiGISqKspoBMbdXJEpOETffp1DBO AkRSUlGQUsPVYhPWNhPBSsQKiiFYOzYKR2DXp7KZMhPZFtBF2BMfRcDXQyFtxeGPIaXRKiONWdyd9DZK WtNHZnDOF4DZKzQADeOGKzGMblDTBxOHIlUMA3LLOg XSWnXU0SWeEjYNQbHWEoLRMbZTUrNOLeou9LCXZkHMW2BHF7ITUvHOIqCTTjYCozMZWtBHRyXbZcTZSt TQPgNF0RXaTbBTVvMKJ3EuLcVMFbOGSsea4BPJMnZPI6CmrsJPKfRTKfPJZxIPkxQVDqSTNiKPO5UYTi PSMaGD3UBvAzOROdBOMkXSGoGZQaCDPxvo7TTQMlBF T6OkRlCxBgAEEgTWVaMFuuVSKgKYK2PVsxVTXyXEKdKQ1CTrSiALEgELSuKUGrJOKtKWMqay9UKUQdXO C1LSI3QsClIBIuIHWeJYq0tsZvpHUaFJz6QK7MY4DdlmFlVzfXMx7Gt059JGA8SATqOh6IB9ygYk4hYG CnGEKAPf2SQPe6VNJmWTn1THOuYCPyTHYtGZpcAavj YSOiZZl6Bny6Iee+TJglKgVyKAezRFJjNqZ8E6AeV4D3LSRzQpX3ZUihPnguZh3hALNLXm7+DQpzdGFy dVkeIQTBNoB0QZCzPXruMDBGOa9I ID Date Data Source [id number] 10/27/2019 11:41:17 PM [facility] Name Value Range Interpretation Code Description Data Sumaya rce(s) Supporting Document(s) Glucose [Mass/volume] in Capillary blood by Glucometer 83 mg/dL 70- 140 [facility] ID Date Data Source [id number] 10/29/2019 12:22:07 PM [facility] Service Cmnt XXX-Imp : Microorganism XXX Cult : 30,000 col/mlIndigenous microorganisms including beta hemolytic Streptococcus group B.(NOTE)Additional testing was performed to rule out a pathogen. Name Value Range Interpretation Code Description Data [facility] rce(s) Supporting Document(s) ID Date Data Source [id number] 10/27/2019 10:50:55 PM [facility] Name Value Range Interpretation Code Description Data Sumaya rce(s) Supporting Document(s) Color of Urine [facility] Clarity of Urine [facility] Specific gravity of Urine by Refractometry automated 1.020 1.003 -1.030 [facility] pH of Urine by Automated test strip 6.0 5.0-8.0 [facility] Protein [Mass/volume] in Urine by Automated test strip Neg [facility] Glucose [Mass/volume] in Urine by Automated test strip Neg [facility] Ketones [Mass/volume] in Urine by Automated test strip Neg [facility] Bilirubin.total [Presence] in Urine by Automated test strip Negative [facility] Hemoglobin [Presence] in Urine by Automated test strip Neg [facility] Leukocyte esterase [Presence] in Urine by Automated test strip Negative [facility] Nitrite [Presence] in Urine by Automated test strip Negati ve [facility] Leukocytes [#/area] in Urine sediment by Automated count 5 /HPF 0 -5 [facility] Erythrocytes [#/area] in Urine sediment by Automated count 0-3 [facility] Bacteria [#/area] in Urine sediment by Automated count Non e [facility] Epithelial cells.squamous [#/area] in Urine sediment by Auto mated count 1 /HPF None [facility] ID Date Data Source [id number] 10/27/2019 03:38:00 PM [facility] Name Value Range Interpretation Code Description Data Sumaya rce(s) Supporting Document(s) Lactate [Moles/volume] in Serum or Plasma 2.7 MMOL/L 0.2 - 2.2 [facility] ID Date Data Source [id number] 10/27/2019 01:08:00 PM [facility] Value Range Interpretation Code Description Data Sumaya rce(s) Supporting Document(s) Influenza virus A Ag [Presence] in Nasopharynx by Immunoassa y NEGATIVE NORMAL: NEGATIVE [facility] Influenza virus B Ag [Presence] in Nasopharynx by Immunoassa y NEGATIVE NORMAL: NEGATIVE [facility] NEGATIVENEGATIVE PROCEDURAL CO NTROL VALID KIT LOT # _[id number] 10/27/19.1308.[place] . . . KIT EXP DATE _06/01/20 10/27/19.1308.[place] . . .The Influenza A & B assay is a rapid molecular in vitro diagnostic testutilizing an isothermal nucleic acid amplification technology for thequalitative detection of influenza A and B viral RNA.Negative results do not preclude influenza virus infection and should not beused as the sole basis for diagnosis, treatment or other patient managementdecisions. ID Date Data Source [id number] 10/27/2019 12:38:00 PM [facility] Value Range Interpretation Code Description Data Sumaya rce(s) Supporting Document(s) URINALYSIS [facility] N[facility]: Yellow [facility] CLARITY clear NORMAL: Clear [facility] Ho spital Specific gravity of Urine by Test strip 1.020 1.001 - 1.030 [facility] pH 5 5 - [facility] Gl[facility] [Mass/volume] in Urine by Test strip NORM NORMAL: Negat lucia [facility] Bilirubin.total [Presence] in Urine by Test strip 1 NORMAL: Negative [facility] Ketones [Presence] in Urine by Test strip 5 NORMAL: Negative [facility] Protein [Mass/volume] in Urine by Test strip 100 NORMAL: Negat lucia [facility] Nitrite [Presence] in Urine by Test strip POS NORMAL: Negative [facility] BLOOD 10 NORMAL: Negative [facility] Leukocyte esterase [Presence] in Urine by Test strip 500 DELANO L: Negative [facility] Urobilinogen [Mass/volume] in Urine by Test strip 4 less tenisha n 1.0 mg/dL [facility] MICROSCOPIC See Below [facility] ital WBC 7 - 10 NORMAL: NONE SEEN A [facility] EPITHELIAL FEW NORMAL: NONE SEEN [facility] Bacteria [Presence] in Urine sediment by Light microscopy 1+ SMALL NORMAL: NONE SEEN [facility] Mucus [Presence] in Urine sediment by Light microscopy 2+ NOR MAL: NONE SEEN A [facility] ID Date Data Source [id number] 10/29/2019 07:32:00 AM [facility] [id number]@10/29/19 0732: Urine ID Charge add ed. RFLXG = CHGURID. Name Value Range Interpretation Code Description Data Sumaya rce(s) Supporting Document(s) Urine culture result Greater than 100,000 CFU/ML Group B strep n o senst done [facility] Bacteria identified in Urine by Culture [facility] [place] count 10,000 - 20,000 [facility] ID Date Data Source [id number] 10/29/2019 07:32:00 AM [facility] [id number]@10/29/19 0732: Urine ID Charge add ed. RFLXG = CHGURID. Name Value Range Interpretation Code Description Data [facility] rce(s) Supporting Document(s) TRIMETHOPRIM/SULFAMETHOXAZOLE <2/38 Recio sceptible. Indicates for microbiology susceptibilities only. [facility] Amoxicillin+Clavulanate [Susceptibility] by Minimum inhibitory concentration (ZHANE) <8/4 Susceptible. Indicates for microbiology s usceptibilities only. [facility] Ampicillin [Susceptibility] by Minimum inhibitory concentration (ZHANE) >16 Resistant. Indicates for microbiology susceptibilities only. [facility] Ampicillin+Sulbactam [Susceptibility] by Minimum inhib itory concentration (ZHANE) <8/4 Susceptible. Indicates for microbiology suscepti bilities only. [facility] Cefotaxime [Susceptibility] by Minimum inhibitory concentration (ZHANE) <2 Susceptible. Indicates for microbiology susceptibilities only. [facility] Ceftriaxone [Susceptibility] by Minimum inhibitory concentration (ZHANE) <1 Susceptible. Indicates for microbiology susceptibilities only. [facility] Ciprofloxacin [Susceptibility] by Minimum inhibitory concentrati on (ZHANE) <1 Susceptible. Indicates for microbiology susceptibilities only. [facility] Ertapenem [Susceptibility] by Minimum inhibitory concentration ( ZHANE) <0.5 Susceptible. Indicates for microbiology susceptibilities only. [facility] Gentamicin [Susceptibility] by Minimum inhibitory concentration (ZHANE) <2 Susceptible. Indicates for microbiology susceptibilities only. [facility] Imipenem [Susceptibility] by Minimum inhibitory concentration (M IC) <1 Susceptible. Indicates for microbiology susceptibilities only. [facility] Nitrofurantoin [Susceptibility] by Minimum inhibitory concentrat ion (ZHANE) <32 Susceptible. Indicates for microbiology susceptibilities only. [facility] Tetracycline [Susceptibility] by Minimum inhibitory concentratio n (ZHANE) <4 Susceptible. Indicates for microbiology susceptibilities only. [facility] Tobramycin [Susceptibility] by Minimum inhibitory concentration (ZHANE) <4 Susceptible. Indicates for microbiology susceptibilities only. [facility] Levofloxacin [Susceptibility] by Minimum inhibitory concentratio n (ZHANE) <2 Susceptible. Indicates for microbiology susceptibilities only. [facility] Cefepime [Susceptibility] by Minimum inhibitory concentration (M IC) <8 Susceptible. Indicates for microbiology susceptibilities only. [facility] Piperacillin+Tazobactam [Susceptibility] by Minimum inhibitory concentration (ZHANE) <16 Susceptible. Indicates for microbiology s usceptibilities only. [facility] ID Date Data Source [id number] 10/29/2019 10:08:00 AM [facility] Name Value Range Interpretation Code Description Data Sumaya rce(s) Supporting Document(s) CULTURE URINE [employer] spital _CULTURE URINE_ Specimen site Narrative R [facility] Result: [place] [address] CLIA# [id number] SEE SCANNED REPORT ID Date Data Source [id number] 10/29/2019 08:18:00 AM [facility] [id number] LINE [id number] CALLED TO NEMO PALM, RESULTS READBACKGRAM STAIN = GRAM NEGATIVE RODSCALLED TO HOWE ([facility]) 10/28/19 AT 0220 BY POMCY. RESULT READBACK.GROWTH IN AEROBIC AND ANAEROBIC BOTTLES.SERRATIA MARCESCENS Name Value Range Interpretation Code Description Data [facility] rce(s) Supporting Document(s) ID Date Data Source [id number] 10/29/2019 08:18:00 AM [facility] [id number] LINE [id number] CALLED TO NEMO PALM, RESULTS READBACKGRAM STAIN = GRAM NEGATIVE RODSCALLED TO HOWE ([facility]) 10/28/19 AT 0220 BY POMCY. RESULT READBACK.GROWTH IN AEROBIC AND ANAEROBIC BOTTLES.SERRATIA MARCESCENS Name Value Range Interpretation Code Description Data [facility] rce(s) Supporting Document(s) TRIMETHOPRIM/SULFAMETHOXAZOLE <2/38 Recio sceptible. Indicates for microbiology susceptibilities only. [facility] Amoxicillin+Clavulanate [Susceptibility] by Minimum inhibitory concentration (ZHANE) >16/8 Resistant. Indicates for microbiology rani ceptibilities only. [facility] Ampicillin [Susceptibility] by Minimum inhibitory concentration (ZHANE) >16 Resistant. Indicates for microbiology susceptibilities only. [facility] Ampicillin+Sulbactam [Susceptibility] by Minimum inhib itory concentration (ZHANE) >16/8 Resistant. Indicates for microbiology susceptibi lities only. [facility] Cefotaxime [Susceptibility] by Minimum inhibitory concentration (ZHANE) <2 Resistant. Indicates for microbiology susceptibilities only. [facility] Ceftriaxone [Susceptibility] by Minimum inhibitory concentration (ZHANE) <1 Resistant. Indicates for microbiology susceptibilities only. [facility] Ciprofloxacin [Susceptibility] by Minimum inhibitory concentrati on (ZHANE) <1 Susceptible. Indicates for microbiology susceptibilities only. [facility] Ertapenem [Susceptibility] by Minimum inhibitory concentration ( ZHANE) <0.5 Susceptible. Indicates for microbiology susceptibilities only. [facility] Gentamicin [Susceptibility] by Minimum inhibitory concentration (ZHANE) <2 Susceptible. Indicates for microbiology susceptibilities only. [facility] Imipenem [Susceptibility] by Minimum inhibitory concentration (M IC) <1 Susceptible. Indicates for microbiology susceptibilities only. [facility] Tetracycline [Susceptibility] by Minimum inhibitory concentratio n (ZHANE) >8 Resistant. Indicates for microbiology susceptibilities only. [facility] Tobramycin [Susceptibility] by Minimum inhibitory concentration (ZHANE) <4 Susceptible. Indicates for microbiology susceptibilities only. [facility] Levofloxacin [Susceptibility] by Minimum inhibitory concentratio n (ZHANE) <2 Susceptible. Indicates for microbiology susceptibilities only. [facility] Cefepime [Susceptibility] by Minimum inhibitory concentration (M IC) <8 Susceptible. Indicates for microbiology susceptibilities only. [facility] Piperacillin+Tazobactam [Susceptibility] by Minimum inhibitory concentration (ZHANE) <16 Resistant. Indicates for microbiology rani ceptibilities only. [facility] ID Date Data Source [id number] 10/28/2019 02:22:00 AM EST [facility] [id number] GALICIA LINECALLED TO [facility]) 10/28/19 AT 0220 BY [facility]. RESULT READBACK.The [employer] BCID Panel is a qualitative multiplexednucleic acid-based [...] Name Value Range Interpretation Code Description Data [facility] rce(s) Supporting Document(s) ID Date Data Source [id number] 10/29/2019 10:03:00 AM [facility] Name Value Range Interpretation Code Description Data [facility] rce(s) Supporting Document(s) CULTURE BLOOD [facility] spital _CULTURE BLOOD_{ PRELIM G(-)RODS, S.MARCESCENSCALLED TO JUANIS Pathak 10/28/19 @0226 GBT ID Date Data Source [id number] 10/27/2019 12:32:00 PM [facility] Name Value Range Interpretation Code Description Data [facility] rce(s) Supporting Document(s) COMPREHENSIVE METABOLIC PANEL [facility] COMPREHENSIVE METABOLIC PANEL Sodium [Moles/volume] in Serum or Plasma 141 mEq/L 134 - 153 [facility] Potassium [Moles/volume] in Serum or Plasma 3.3 mEq/L 3.6 - 5.0 L [facility] Chloride [Moles/volume] in Serum or Plasma 105 mEq/L 98 - 107 [facility] Carbon dioxide, total [Moles/volume] in Serum or Plasma 23 MEQ/L 22 - 30 [facility] Glucose [Mass/volume] in Serum or Plasma 112 MG/DL 65 - 110 H [facility] BUN 9 MG/DL 7 - 21 [facility] al Creatinine [Mass/volume] in Serum or Plasma 0.8 MG/DL 0.7 - 1.5 [facility] BUN/CREAT 11 8 - 27 [facility] Protein [Mass/volume] in Serum or Plasma 7.0 G/DL 6.3 - 8.2 [facility] Albumin [Mass/volume] in Serum or Plasma 3.9 G/DL 3.9 - 5.0 [facility] Globulin [Mass/volume] in Serum by calculation 3.1 GM/DL 2.4 - 3.2 [facility] A/G RATIO 1.3 0.8 - 2.0 [facility] Calcium [Mass/volume] in Serum or Plasma 9.5 MG/DL 8.4 - 10.2 [facility] Bilirubin.total [Mass/volume] in Serum or Plasma 0.8 MG/DL 0.2 - 1.3 [facility] Alkaline phosphatase [Enzymatic activity/volume] in Serum or Plasma 192 U/L 38 - 126 H [facility] Aspartate aminotransferase [Enzymatic activity/volume] in Serum or Plasma 25 U/L 5 - 40 [facility] Alanine aminotransferase [Enzymatic activity/volume] in Seru m or Plasma 13 U/L 7 - 56 [facility] Anion gap 3 in Serum or Plasma 13.0 mmol/L 8.0 - 16.0 [facility] AGE 39 yrs [facility] al NON-AA GFR 84 mL/min [facility] AFR AMER GFR 102 mL/min [facility] sp[facility] Male GFR In terprentation [...] >32 mL/min Normal ID Date Data Source [id number] 10/27/2019 12:29:00 PM [facility] Name Value Range Interpretation Code Description Data [facility] rce(s) Supporting Document(s) Lipase [Enzymatic activity/volume] in Serum or Plasma 62 U/L 13 - 60 H [facility] ID Date Data Source [id number] 10/27/2019 12:30:00 PM [facility] Name Value Range Interpretation Code Description Data [facility] rce(s) Supporting Document(s) CBC W/AUTOMATED DIFF [facility] COMPLETE BLOOD COUNT Leukocytes [#/volume] in Blood by Automated count 7.9 10^3/uL 4.2 - 1 1.0 [facility] Erythrocytes [#/volume] in Blood by Automated count 4.68 10^6/uL 4. 20 - 5.40 [facility] Hemoglobin [Mass/volume] in Blood 11.0 g/dL 12.0 - 16.0 L [facility] Hematocrit [Volume Fraction] of Blood by Automated count 36.7 % 3 7.0 - 47.0 L [facility] Erythrocyte mean corpuscular volume [Entitic volume] by Auto mated count 78.4 fL 81.0 - 101 L [facility] Erythrocyte mean corpuscular hemoglobin [Entitic mass] by Automated count 23.5 pg 27.0 - 34.0 L [facility] Erythrocyte mean corpuscular hemoglobin concentration [Mass/volume] by Automated count 30.0 g/dL 31.0 - 36.0 L [facility] Erythrocyte distribution width [Ratio] by Automated count 16.4 % 11.5 - 14.5 H [facility] Platelets [#/volume] in Blood by Automated count 382 10^3/uL 150 - 45 0 [facility] Platelet mean volume [Entitic volume] in Blood by Automated count 9.0 fL 7.4 - 10.4 [facility] Neutrophils/100 leukocytes in Blood by Automated count 94.0 % 37. 0 - 80.0 H [facility] Lymphocytes/100 leukocytes in Blood by Manual count 1.8 % 25.0 - 40.0 L [facility] Monocytes/100 leukocytes in Blood by Automated count 1.9 % 3.0 - 8.0 L [facility] Eosinophils/100 leukocytes in Blood by Automated count 1.3 % 0.0 - 7.0 [facility] Basophils/100 leukocytes in Blood by Automated count 0.5 % 0.0 - 2.5 [facility] %IG 0.5 % 0.0 - 0.0 H [facility] al %NRBC 0.0 % 0.0 - 0.0 [facility] Neutrophils [#/volume] in Blood by Automated count 7.41 10^3/uL 2.00 - 6.90 H [facility] Lymphocytes [#/volume] in Blood by Automated count 0.14 10^3/uL 0.60 - 3.40 L [facility] Monocytes [#/volume] in Blood by Automated count 0.15 10^3/uL 0.00 - 0.90 [facility] Eosinophils [#/volume] in Blood by Automated count 0.10 10^3/uL 0.00 - 0.70 [facility] Basophils [#/volume] in Blood by Automated count 0.04 10^3/uL 0.00 - 0.20 [facility] #IG 0.04 10^3/uL 0.00 - 0.10 [facility]spital #NRBC 0.00 10^3/uL 0.00 - 0.00 [facility] MANUAL DIFF SEE BELOW [facility] ital Segmented neutrophils/100 leukocytes in Blood by Manual count 93 % 37 - 80 H [facility] %LYMPH 5 % 25 - 40 L [facility] %MONO 1 % 3 - 8 L [facility] %EOS 1 % 0 - 7 [facility] RBC MORPH NOT INDICATED [facility] ID Date Data Source [id number] 10/27/2019 11:59:00 AM EST [facility] Name Value Range Interpretation Code Description Data [facility] rce(s) Supporting Document(s) Lactate [Moles/volume] in Serum or Plasma 3.2 MMOL/L 0.2 - 2.2 H [facility] ID Date Data Source [id number] 10/27/2019 01:42:00 PM [facility] Name Value Range Interpretation Code Description Data [facility] rce(s) Supporting Document(s) C reactive protein [Mass/volume] in Serum or Plasma by High sensitivity method 34.55 MG/L 1.00 - 3.00 H [facility] HS-CRP CUT-OFF: RELATIVE RISK: <1.0 mg/L Low 1.0 - 3.0 mg/L Average >3.0 mg/L High Optimally, the average of HS-CRP results repeated two weeks apart should be used for risk assessment. ID Date Data Source [id number] 10/27/2019 01:17:00 PM [facility] Name Value Range Interpretation Code Description Data [facility] Supporting Document(s) Prothrombin time (PT) 13.3 SECONDS 11.0 - 15.5 [facility] INR in Platelet poor plasma by Coagulation assay 1.00 0.93 - 1. 23 [facility] aPTT in Blood by Coagulation assay 34.3 SECONDS 24.8 - 36.7 [facility] \\BLDo\\INR INTERPRETATION\\BLDx\\ Therapeutic range for Coumadin and related oral anticoagulants. - International Normalized Ratio (INR): 2.0 - 3.0 for Venous Thrombosis, Pulmonary Embolus, Tissue heart valves, Acute ND Atrial Fibrillation, Valvular heart disease and recurrent [...] (GEL) Manual 10/16/2019 12:00:00 AM EST eCW1 ([facility]) Name Value Range Interpretation Code Description Data [facility] rce(s) Supporting Document(s) NEGATIVE AB SCREEN GEL MANUAL eCW1 ([facility]) O NEGATIVE BLOOD TYPE eCW1 ([facility]) ID Date Data Source Basic Metabolic Profile (BMP) 10/16/2019 12:00:00 AM EST eCW 1 ([facility]) Name Value Range Interpretation Code Description Data [facility] rce(s) Supporting Document(s) 95 70-100 GLUCOSE, FASTING eCW1 ([facility]) 0.66 0.55-1.30 CREATININE FOR GFR eCW1 ([facility]) 3 7-18 BLOOD UREA NITROGEN eCW1 ([facility]) 4.5 3.5-5.1 POTASSIUM SERUM eCW1 ([facility]) > 60.0 >58 GLOMERULAR FILTRATION RATE eCW 1 ([facility]) 139 136-145 SODIUM LEVEL eCW1 ([facility]) 104 98-107 CHLORIDE LEVEL eCW1 ([facility]) 24 21-32 CARBON DIOXIDE LEVEL eCW1 ([facility]) 8.6 8.5-10.1 CALCIUM LEVEL eCW1 ([facility]) ID Date Data Source CBC 10/16/2019 12:00:00 AM EST eCW1 ([facility]) Name Value Range Interpretation Code Description Data [facility] rce(s) Supporting Document(s) 7.5 12.0-15.5 HEMOGLOBIN eCW1 ([facility]) 7.0 4.0-10.0 WHITE BLOOD COUNT eCW1 ([facility]) 26.1 36.0-47.0 HEMATOCRIT eCW1 ([facility]) 3.27 4.00-5.40 RED BLOOD COUNT eCW1 ([facility]) 28.7 32.0-36.5 MEAN CORPUSCULAR HGB CONC eCW1 ([facility]) 79.8 80.0-96.0 MEAN CORPUSCULAR VOLUME e CW1 ([facility]) 263 150-450 PLATELET COUNT, AUTOMATED eCW1 ([facility]) 22.9 27.0-33.0 MEAN CORPUSCULAR HEMOGLOB IN eCW1 ([facility]) 16.4 11.5-14.5 RED CELL DISTRIBUTION WID TH eCW1 ([facility]) Procedure Social History Code Duration Value Status Description Data Source(s ) Alcohol intake 11/30/2020 12:00:00 AM EST Current non-d sherice of alcohol (finding) completed Current non-drinker of alcohol (finding) [facility] Tobacco use and exposure 11/30/2020 12:00:00 AM EST Never used co mpleted Never used [facility] Smoking 11/30/2020 12:00:00 AM EST Never smoker completed Never s [facility] Smoking 11/14/2020 12:00:00 AM EST Never Smoker completed Never S moker eCW1 ([facility]) Smoking 11/14/2020 12:00:00 AM EST Never Smoker completed Never S moker eCW1 ([facility]) Smoking 11/09/2020 12:00:00 AM EST Never Smoker completed Never S moker eCW1 ([facility]) Smoking 11/09/2020 12:00:00 AM EST Never Smoker completed Never S moker eCW1 ([facility]) Smoking 10/19/2020 12:02:00 AM EST Denies Ever Smoked complete d Denies Ever Smoked [facility] Smoking 08/25/2020 12:00:00 AM EST Never Smoker completed Never S moker eCW1 ([facility]) Smoking 08/25/2020 12:00:00 AM EST Never Smoker completed Never S moker eCW1 ([facility]) Smoking 08/25/2020 12:00:00 AM EST Never Smoker completed Never S moker eCW1 ([facility]) Smoking 08/25/2020 12:00:00 AM EST Never Smoker completed Never S moker eCW1 ([facility]) Smoking 08/25/2020 12:00:00 AM EST Never Smoker completed Never S moker eCW1 ([facility]) Smoking 08/02/2020 12:00:00 AM EDT Never smoker completed Never s moker [facility] Alcohol intake 08/02/2020 12:00:00 AM EDT Never completed [facility] Smoking 04/21/2020 12:00:00 AM EDT Never Smoker completed Never S moker eCW1 ([facility]) Smoking 04/21/2020 12:00:00 AM EDT Never Smoker completed Never S moker eCW1 ([facility]) Smoking 04/21/2020 12:00:00 AM EDT Never Smoker completed Never S moker eCW1 ([facility]) Smoking 04/05/2020 12:00:00 AM EDT Never Smoker completed Never S moker eCW1 ([facility]) Smoking 04/05/2020 12:00:00 AM EDT Never Smoker completed Never S moker eCW1 ([facility]) Smoking 03/28/2020 12:00:00 AM EDT Never Smoker completed Never S moker eCW1 ([facility]) Smoking 03/28/2020 12:00:00 AM EDT Never Smoker completed Never S moker eCW1 ([facility]) Smoking 03/28/2020 12:00:00 AM EDT Never Smoker completed Never S moker eCW1 ([facility]) Smoking 03/28/2020 12:00:00 AM EDT Never Smoker completed Never S moker eCW1 ([facility]) Smoking 02/18/2020 12:00:00 AM EDT Never Smoker completed Never S moker eCW1 ([facility]) Smoking 02/18/2020 12:00:00 AM EDT Never Smoker completed Never S moker eCW1 ([facility]) Alcohol intake 02/10/2020 12:00:00 AM EDT Current non-d sherice of alcohol (finding) completed Current non-drinker of alcohol (finding) [facility] Smoking 02/10/2020 12:00:00 AM EDT Never smoker completed Never s [facility] Alcohol intake 11/16/2019 12:00:00 AM EST Current non-d sherice of alcohol (finding) completed Current non-drinker of alcohol (finding) [facility] Smoking 11/16/2019 12:00:00 AM EST Never smoker completed Never s [facility] Alcohol intake 10/27/2019 12:00:00 AM EST Current non-d sherice of alcohol (finding) completed Current non-drinker of alcohol (finding) [facility] Smoking 10/27/2019 12:00:00 AM EST Never smoker completed Never s [facility] Vital Signs ID Date Data Source UNK Name Value Range Interpretation Code Description Data Source(s) Diastolic blood pressure 70 mm[Hg] 70 mm[Hg] eCW1 ([facility]) Systolic blood pressure 110 mm[Hg] 110 mm[Hg] e CW1 ([facility]) Body temperature 97.5 [degF] 97.5 [degF] eCW1 ( [facility]) Respiratory rate 18 /min 18 /min eCW1 ([facility]) Heart rate 121 /min 121 /min eCW1 ([facility]) Body mass index (BMI) [Ratio] 28.40 kg/m2 28.40 kg/m2 eCW1 ([facility]) Body height 66 [in_i] 66 [in_i] eCW1 ([facility]) Body weight 176 [lb_av] 176 [lb_av] eCW1 ([facility]) Oxygen saturation in Arterial blood by Pulse oximetry 96 % 96 % MEDENT ([facility]) Body temperature 36.1 Homer 36.1 Homer MEDENT ( [facility]) Body temperature 97.0 [degF] 97.0 [degF] [facility] ([facility]) Heart rate 126 /min 126 /min [facility] ([facility]) Diastolic blood pressure 85 mm[Hg] 85 mm[Hg] [facility] ([facility]) Systolic blood pressure 129 mm[Hg] 129 mm[Hg] M EDENT ([facility]) Body mass index (BMI) [Ratio] 28.4 kg/m2 28.4 k g/m2 MED[facility] ([facility]) Body weight 181.12 [lb_av] 181.12 [lb_av] MEDEN T ([facility]) Body height 67.00 [in_i] 67.00 [in_i] [facility] ([facility]) 5'7" Diastolic blood pressure 70 mm[Hg] 70 mm[Hg] eCW1 ([facility]) Systolic blood pressure 112 mm[Hg] 112 mm[Hg] e CW1 ([facility]) Body temperature 96.1 [degF] 96.1 [degF] eCW1 ( [facility]) Respiratory rate 20 /min 20 /min eCW1 ([facility]) Heart rate 120 /min 120 /min eCW1 ([facility]) Body mass index (BMI) [Ratio] 29.37 kg/m2 29.37 kg/m2 eCW1 ([facility]) Body height 66 [in_i] 66 [in_i] eCW1 ([facility]) Body weight 182 [lb_av] 182 [lb_av] eCW1 ([facility]) Deprecated Oxygen saturation in Capillary blood by Oximetry 96 % Normal (applies to non-numeric results) 96 % [facility] Systolic blood pressure 97 mm[Hg] Normal (applies t o non-numeric results) 97 mm[Hg] [facility] Body temperature 37 homer Normal (applies to non-numeric results) 37 homer [facility] Respiratory rate 18 min Normal (applies to non-numeric results) 18 min [facility] Heart rate 102 min Normal (applies to non-numeric resul ts) 102 min [facility] Diastolic blood pressure 63 mm[Hg] Normal (applies to non-numeric results) 63 mm[Hg] [facility] Body height 169.907574 cm Normal (applies to non-nume zaina results) 169.673331 cm [facility] Body weight Measured 69.9 kg Normal (applies to non-num zeb results) 69.9 kg [facility] Body mass index (BMI) [Ratio] 24.19 kg/m2 No rmal (applies to non-numeric results) 24.19 kg/m2 [facility] Diastolic blood pressure 73 mm[Hg] 73 mm[Hg] MEDENT ([facility], [facility]) Systolic blood pressure 109 mm[Hg] 109 mm[Hg] M EDENT ([facility], [facility]) Body mass index (BMI) [Ratio] 24.1 kg/m2 24.1 k g/m2 MEDENT ([facility], [facility]) Body height 67 [in_i] 67 [in_i] [facility] 5'7" Body weight 154.00 [lb_av] 154.00 [lb_av] MEDEN T ([facility], [facility]) Body temperature 97.9 [degF] 97.9 [degF] MEDENT ([facility], [facility]) Oxygen saturation in Arterial blood by Pulse oximetry 97 % 97 % MEDENT ([facility], [facility]) Respiratory rate 16 /min 16 /min MEDENT ( [facility], [facility]) Heart rate 105 /min 105 /min MEDENT ([facility], [facility]) Diastolic blood pressure 56 mm[Hg] 56 mm[Hg] eCW1 ([facility]) Systolic blood pressure 100 mm[Hg] 100 mm[Hg] e CW1 ([facility]) Body temperature 97.3 [degF] 97.3 [degF] eCW1 ( [facility]) Respiratory rate 18 /min 18 /min eCW1 ([facility]) Heart rate 109 /min 109 /min eCW1 ([facility]) Body mass index (BMI) [Ratio] 28.89 kg/m2 28.89 kg/m2 W1 ([facility]) Body height 66 [in_i] 66 [in_i] eCW1 ([facility]) Body weight 179 [lb_av] 179 [lb_av] eCW1 ([facility]) Respiratory rate 16 /min 16 /min [facility] Body temperature 36.28 Homer 36.28 Homer [facility] Heart rate 90 /min 90 /min [facility] Diastolic blood pressure 52 mm[Hg] 52 mm[Hg] [facility] Systolic blood pressure 102 mm[Hg] 102 mm[Hg] M [facility] Body mass index (BMI) [Ratio] 26.34 kg/m2 26.34 kg/m2 [facility] Body weight 76.114 kg 76.114 kg [facility] Oxygen saturation in Arterial blood by Pulse oximetry 100 % 100 % [facility] Body height 170 cm 170 cm [facility] Diastolic blood pressure 60 mm[Hg] 60 mm[Hg] eCW1 ([facility]) Systolic blood pressure 100 mm[Hg] 100 mm[Hg] e CW1 ([facility]) Body temperature 97 [degF] 97 [degF] eCW1 ([facility]) Respiratory rate 18 /min 18 /min eCW1 ([facility]) Heart rate 110 /min 110 /min eCW1 ([facility]) Body mass index (BMI) [Ratio] 27.44 kg/m2 27.44 kg/m2 eCW1 ([facility]) Body height 66 [in_i] 66 [in_i] eCW1 ([facility]) Body weight 170 [lb_av] 170 [lb_av] eCW1 ([facility]) Body weight 156.2 [lb_av] 156.2 [lb_av] ROBERTO ([facility] ) Systolic blood pressure 110 mm[Hg] 110 mm[Hg] A THENA ([facility] ) Body mass index (BMI) [Ratio] 26 kg/m2 26 kg/ m2 ROBERTO ([facility] ) Body height 65 [in_i] 65 [in_i] ROBERTO ([facility]) Diastolic blood pressure 70 mm[Hg] 70 mm[Hg] ROBERTO ([facility] ) Diastolic blood pressure 60 mm[Hg] 60 mm[Hg] eCW1 ([facility]) Systolic blood pressure 100 mm[Hg] 100 mm[Hg] e CW1 ([facility]) Body temperature 97.6 [degF] 97.6 [degF] eCW1 ( [facility]) Respiratory rate 18 /min 18 /min eCW1 ([facility]) Heart rate 79 /min 79 /min eCW1 ([facility]) Body mass index (BMI) [Ratio] 25.01 kg/m2 25.01 kg/m2 W1 ([facility]) Body height 66 [in_i] 66 [in_i] eCW1 ([facility]) Body weight 155 [lb_av] 155 [lb_av] eCW1 ([facility]) Diastolic blood pressure 62 mm[Hg] 62 mm[Hg] eCW1 ([facility]) Systolic blood pressure 98 mm[Hg] 98 mm[Hg] e CW1 ([facility]) Body temperature 96.6 [degF] 96.6 [degF] eCW1 ( [facility]) Respiratory rate 18 /min 18 /min eCW1 ([facility]) Heart rate 101 /min 101 /min eCW1 ([facility]) Body mass index (BMI) [Ratio] 24.69 kg/m2 24.69 kg/m2 eCW1 ([facility]) Body height 66 [in_us] 66 [in_us] eCW1 ([facility]) Body weight Measured 153 [lb_av] 153 [lb_av] eC W1 ([facility]) Diastolic blood pressure 60 mm[Hg] 60 mm[Hg] eCW1 ([facility]) Systolic blood pressure 100 mm[Hg] 100 mm[Hg] e CW1 ([facility]) Body temperature 97 [degF] 97 [degF] eCW1 ([facility]) Respiratory rate 18 /min 18 /min eCW1 ([facility]) Heart rate 130 /min 130 /min eCW1 ([facility]) Body mass index (BMI) [Ratio] 24.53 kg/m2 24.53 kg/m2 eCW1 ([facility]) Body height 66 [in_us] 66 [in_us] eCW1 ([facility]) Body weight Measured 152 [lb_av] 152 [lb_av] eC W1 ([facility]) Diastolic blood pressure 62 mm[Hg] 62 mm[Hg] eCW1 ([facility]) Systolic blood pressure 94 mm[Hg] 94 mm[Hg] e CW1 ([facility]) Body temperature 96.9 [degF] 96.9 [degF] eCW1 ( [facility]) Respiratory rate 16 /min 16 /min eCW1 ([facility]) Heart rate 139 /min 139 /min eCW1 ([facility]) Body mass index (BMI) [Ratio] 24.53 kg/m2 24.53 kg/m2 eCW1 ([facility]) Body height 66 [in_us] 66 [in_us] eCW1 ([facility]) Body weight Measured 152 [lb_av] 152 [lb_av] eC W1 ([facility]) Diastolic blood pressure 58 mm[Hg] 58 mm[Hg] eCW1 ([facility]) Systolic blood pressure 100 mm[Hg] 100 mm[Hg] e CW1 ([facility]) Body temperature 96 [degF] 96 [degF] eCW1 ([facility]) Respiratory rate 18 /min 18 /min eCW1 ([facility]) Heart rate 115 /min 115 /min eCW1 ([facility]) Body mass index (BMI) [Ratio] 25.01 kg/m2 25.01 kg/m2 eCW1 ([facility]) Body height 66 [in_us] 66 [in_us] eCW1 ([facility]) Body weight Measured 155 [lb_av] 155 [lb_av] eC W1 ([facility]) Diastolic blood pressure 62 mm[Hg] 62 mm[Hg] eCW1 ([facility]) Systolic blood pressure 102 mm[Hg] 102 mm[Hg] e CW1 ([facility]) Body temperature 96.8 [degF] 96.8 [degF] eCW1 ( [facility]) Respiratory rate 18 /min 18 /min eCW1 ([facility]) Heart rate 85 /min 85 /min eCW1 ([facility]) Body mass index (BMI) [Ratio] 24.21 kg/m2 24.21 kg/m2 eCW1 ([facility]) Body height 66 [in_us] 66 [in_us] eCW1 ([facility]) Body weight Measured 150 [lb_av] 150 [lb_av] eC W1 ([facility]) Diastolic blood pressure 60 mm[Hg] 60 mm[Hg] eCW1 ([facility]) Systolic blood pressure 100 mm[Hg] 100 mm[Hg] e CW1 ([facility]) Body temperature 98.2 [degF] 98.2 [degF] eCW1 ( [facility]) Respiratory rate 18 /min 18 /min eCW1 ([facility]) Heart rate 120 /min 120 /min eCW1 ([facility]) Body mass index (BMI) [Ratio] 25.66 kg/m2 25.66 kg/m2 eCW1 ([facility]) Body height 66 [in_us] 66 [in_us] eCW1 ([facility]) Body weight Measured 159 [lb_av] 159 [lb_av] eC W1 ([facility]) ID Date Data Source [id number] 12/09/2020 09:39:28 PM [facility] Name Value Range Interpretation Code Description Data Source(s) WEIGHT RECORDED 174.6 lb 174.6 lb [facility] Body height Measured 65.55 in 65.55 in [facility] WEIGHT RECORDED 160 lb 160 lb [facility] Body height Measured 67 in 67 in [facility] TRANSFER FROM [facility] ID Date Data Source [id number] 10/17/2020 05:21:16 PM [facility] Value Range Interpretation Code Description Data Source(s) TRANSFER FROM [facility] ID Date Data Source [id number] [facility] Range Interpretation Code Description Data Source(s) TRANSFER FROM [facility] ID Date Data Source [id number] 02/16/2020 09:21:18 AM [facility] Value Range Interpretation Code Description Data Source(s) WEIGHT RECORDED 150 lb 150 lb [facility] Body height Measured 67 in 67 in [facility] ID Date Data Source [id number] 11/17/2019 08:43:45 AM [facility] Value Range Interpretation Code Description Data Source(s) WEIGHT RECORDED 151.4 lb 151.4 lb [facility] Body height Measured 67 in 67 in [facility] ID Date Data Source [id number] 10/19/2019 09:52:26 AM [facility] Name Value Range Interpretation Code Description Data Source(s) WEIGHT RECORDED 154.54 lb 154.54 lb [facility] Body height Measured 67 in 67 in [facility] Patient Treatment Plan of Care Planned Activity Planned Date Details Description Data Source (s) pantoprazole 40 MG Delayed Release Oral Tablet 12/09/2020 09:00:00 AM [facility] sodium chloride flush 0.9 % 10 mL 12/07/2020 10:03:14 AM [facility] sodium chloride flush 0.9 % 20 mL 12/07/2020 10:02:17 AM [facility] sodium chloride 0.9 % bag 3-20 mL 12/07/2020 10:02:12 AM [facility] heparin sodium, porcine 10 UNT/ML Injectable Solution 12/07/2020 09:52:42 AM [facility]spital sodium chloride (preservative free) 0.9 % flush 3 mL 021 09:52:26 AM [facility] albuterol (PROVENTIL HFA) inhaler 2 puff 12/06/2020 02:42:39 AM [facility] Zolpidem tartrate 12.5 MG Extended Release Oral Tablet 11/14/2020 12:00:00 AM EST W1 ([facility]) Ondansetron 4 MG Oral Tablet 11/14/2020 12:00:00 AM EST eCW1 ([facility]) Zolpidem tartrate 12.5 MG Extended Release Oral Tablet 11/14/2020 12:00:00 AM EST eCW1 ([facility]) Ondansetron 4 MG Oral Tablet 11/14/2020 12:00:00 AM EST eCW1 ([facility]) Fluoxetine 4 MG/ML Oral Solution 08/25/2020 12:00:00 AM EST eCW1 ([facility]) Zolpidem tartrate 10 MG Oral Tablet 08/25/2020 12:00:00 AM EST eCW1 ([facility]) Fluoxetine 4 MG/ML Oral Solution 08/25/2020 12:00:00 AM EST eCW1 ([facility]) Zolpidem tartrate 10 MG Oral Tablet 08/25/2020 12:00:00 AM EST eCW1 ([facility]) Fluoxetine 4 MG/ML Oral Solution 08/25/2020 12:00:00 AM EST eCW1 ([facility]) Zolpidem tartrate 10 MG Oral Tablet 08/25/2020 12:00:00 AM EST eCW1 ([facility]) Fluoxetine 4 MG/ML Oral Solution 08/25/2020 12:00:00 AM EST eCW1 ([facility]) Zolpidem tartrate 10 MG Oral Tablet 08/25/2020 12:00:00 AM EST eCW1 ([facility]) Fluoxetine 4 MG/ML Oral Solution 08/25/2020 12:00:00 AM EST eCW1 ([facility]) Zolpidem tartrate 10 MG Oral Tablet 08/25/2020 12:00:00 AM EST eCW1 ([facility]) Levetiracetam 500 MG Oral Tablet 08/04/2020 12:00:00 AM EDT [facility] Zolpidem tartrate 5 MG Oral Tablet 04/21/2020 12:00:00 AM EDT eCW1 ([facility]) Zolpidem tartrate 5 MG Oral Tablet 04/21/2020 12:00:00 AM EDT eCW1 ([facility]) Zolpidem tartrate 5 MG Oral Tablet 04/21/2020 12:00:00 AM EDT eCW1 ([facility]) Amylases 21766 UNT / Endopeptidases 9500 UNT / Lipase 3000 UNT Delayed Release Oral Capsule 04/07/2020 12:00:00 AM EDT [facility] Misc. Devices (DURABLE MEDICAL EQUIPMENT SEE SIG) XX M ISC 03/28/2020 12:00:00 AM EDT [facility] Zolpidem tartrate 10 MG Oral Tablet 03/28/2020 12:00:00 AM EDT eCW1 ([facility]) Zolpidem tartrate 10 MG Oral Tablet 03/28/2020 12:00:00 AM EDT eCW1 ([facility]) Zolpidem tartrate 10 MG Oral Tablet 03/28/2020 12:00:00 AM EDT eCW1 ([facility]) Zolpidem tartrate 10 MG Oral Tablet 03/28/2020 12:00:00 AM EDT eCW1 ([facility]) 1 ML Enoxaparin sodium 100 MG/ML Prefilled Syringe [Lo venox] 03/24/2020 12:00:00 AM EDT eCW1 ([facility]) 1 ML Enoxaparin sodium 100 MG/ML Prefilled Syringe [Lo venox] 03/24/2020 12:00:00 AM EDT eCW1 ([facility]) 1 ML Enoxaparin sodium 100 MG/ML Prefilled Syringe [Lo venox] 03/24/2020 12:00:00 AM EDT eCW1 ([facility]) 1 ML Enoxaparin sodium 100 MG/ML Prefilled Syringe [Lo venox] 03/24/2020 12:00:00 AM EDT eCW1 ([facility]) 1 ML Enoxaparin sodium 100 MG/ML Prefilled Syringe [Lo venox] 03/24/2020 12:00:00 AM EDT eCW1 ([facility]) Amylases 09347 UNT / Endopeptidases 9500 UNT / Lipase 3000 UNT Delayed Release Oral Capsule [Creon] 03/24/2020 12:00:00 AM EDT eCW1 ([facility]) Amylases 58583 UNT / Endopeptidases 9500 UNT / Lipase 3000 UNT Delayed Release Oral Capsule [Creon] 03/24/2020 12:00:00 AM EDT eCW1 ([facility]) Amylases 31387 UNT / Endopeptidases 9500 UNT / Lipase 3000 UNT Delayed Release Oral Capsule [Creon] 03/24/2020 12:00:00 AM EDT eCW1 ([facility]) Amylases 32310 UNT / Endopeptidases 9500 UNT / Lipase 3000 UNT Delayed Release Oral Capsule [Creon] 03/24/2020 12:00:00 AM EDT eCW1 ([facility]) Relizorb Device 03/22/2020 12:00:00 AM [facility]. Devices (DURABLE MEDICAL EQUIPMENT SEE SIG) XX M [facility] 03/15/2020 12:00:00 AM [facility]. Devices (DURABLE MEDICAL EQUIPMENT SEE SIG) XX M [facility] 03/15/2020 12:00:[address] [facility]. Devices (DURABLE MEDICAL EQUIPMENT SEE SIG) XX M [facility] 03/02/2020 12:00:00 AM [facility]. Devices (DURABLE MEDICAL EQUIPMENT SEE SIG) XX M [facility] 02/17/2020 12:00:[address] [facility]. Devices (DURABLE MEDICAL EQUIPMENT SEE SIG) XX M [facility] 02/10/2020 12:00:00 AM [facility] Zol[facility]em tartrate 5 MG Oral Tablet 02/04/2020 12:00:00 AM EDT eC ([facility]) Zolpidem tartrate 5 MG Oral Tablet 02/04/2020 12:00:00 AM EDT eC ([facility]) Methadone Hydrochloride 5 MG Oral Tablet 01/28/2020 12:00:00 AM [facility] 0.8 ML Enoxaparin sodium 100 MG/ML Prefilled Syringe 020 12:00:00 AM [facility] 0.8 ML Enoxaparin sodium 100 MG/ML Prefilled Syringe [ Lovenox] 01/07/2020 12:00:00 AM EDT eC ([facility]) Sodium Chloride 0.9 % Intravenous Solution 01/05/2020 12:00:00 AM [facility] Invanz 1 GM 01/05/2020 12:00:00 AM EDT e CW1 ([facility]) Nystatin [id number] UNT/ML Topical Cream 01/04/2020 12:00:00 AM [facility] Nystatin 737641 UNT/ML Topical Cream 01/04/2020 12:00:00 AM EDT eCW1 ([facility]) Nystatin 199874 UNT/ML Topical Cream 01/04/2020 12:00:00 AM EDT eCW1 ([facility]) Nystatin [id number] UNT/ML Topical Cream 01/04/2020 12:00:00 AM EDT eCW1 ([facility]) Nystatin 834362 UNT/ML Topical Cream 01/04/2020 12:00:00 AM EDT eCW1 ([facility]) Meropenem 1 GM 01/04/2020 12:00:00 AM EDT eCW1 ([facility]) Nystatin [id number] UNT/ML Topical Cream 01/04/2020 12:00:00 AM EDT eCW1 ([facility]) Nystatin [id number] UNT/ML Topical Cream 01/04/2020 12:00:00 AM EDT eCW1 ([facility]) Zolpidem tartrate 6.25 MG Extended Release Oral Tablet 11/24/2019 12:00:00 AM EST eCW1 ([facility]) Zolpidem tartrate 6.25 MG Extended Release Oral Tablet 11/24/2019 12:00:00 AM EST eCW1 ([facility]) Zolpidem tartrate 6.25 MG Extended Release Oral Tablet 11/24/2019 12:00:00 AM EST eCW1 ([facility]) Zolpidem tartrate 6.25 MG Extended Release Oral Tablet 11/24/2019 12:00:00 AM EST eCW1 ([facility]) Zolpidem tartrate 6.25 MG Extended Release Oral Tablet 11/24/2019 12:00:00 AM EST eCW1 ([facility]) Glucagon 3 MG/DOSE 11/24/2019 12:00:00 AM EST eCW1 ([facility]) diphenhydrAMINE HCl 50 MG/ML Injection Solution (BENAD RYL) 11/13/2019 12:00:00 AM [facility]spital Misc. Devices (DURABLE MEDICAL EQUIPMENT SEE SIG) XX M ISC 11/10/2019 12:00:00 AM [facility] 1 ML heparin sodium, porcine 100 UNT/ML Injection 11/02/2019 12: 39:15 PM [facility] sodium chloride (preservative free) 0.9 % flush 10 mL 11/02/2019 08:45:14 AM [facility] 1 ML heparin sodium, porcine 10 UNT/ML Injection 11/02/2019 08:45:1 4 AM [facility] pantoprazole 4 MG/ML Injectable Solution 11/02/2019 12:00:00 AM [facility] Ondansetron 2 MG/ML Injectable Solution 11/02/2019 12:00:00 AM [facility] alpha-Tocopherol Acetate 1 UNT/ML / Asco rbic Acid 20 MG/ML / Biotin 0.006 MG/ML / Cholecalciferol 20 UNT/ML / dexpanthenol 1.5 MG/ML / Folic Acid 0.06 MG/ML / Niacinamide 4 MG/ML / Pyridoxine Hydrochloride 0.6 MG/ML / retinyl palmitate 330 UNT/ML / Ribofl 11/02/2019 12:00:00 AM EST [facility] sodium chloride 0.9 % SOLN 50 mL with ertapenem 1 g SO LR 1,000 mg 11/02/2019 12:00:00 AM [facility] Dicyclomine Hydrochloride 10 MG Oral Capsule 11/02/2019 12:00:00 AM [facility] Loperamide Hydrochloride 2 MG Oral Capsule 11/02/2019 12:00:00 AM [facility] pantoprazole 40 MG Delayed Release Oral Tablet 11/02/2019 12:00:00 AM [facility] Loperamide Hydrochloride 2 MG Oral Capsule 10/27/2019 08:41:[address] [facility] Hydroxyzine Hydrochloride 50 MG Oral Tablet 10/27/2019 08:41:24 PM [facility] albuterol (PROVENTIL HFA;VENTOLIN HFA) inhaler 2 puff 10/27/2019 08:40:44 PM [facility] Doxycycline Monohydrate 5 MG/ML Oral Suspension 10/16/2019 12:00:00 AM EST eCW1 ([facility]) Amylases 83949 UNT / Endopeptidases 9500 UNT / Lipase 3000 UNT Delayed Release Oral Capsule 10/05/2019 12:00:00 AM [facility] Ondansetron 4 MG Disintegrating Oral Tablet 10/02/2019 12:00:00 AM [facility] Loperamide Hydrochloride 2 MG Oral Capsule 10/01/2019 12:00:[address] [facility] pantoprazole 40 MG Delayed Release Oral Tablet 10/01/2019 12:00:00 AM [facility] Misoprostol 0.2 MG Oral Tablet 10/01/2019 12:00:00 AM [facility] trimethobenzamide (TIGAN) injection 200 mg 09/28/2019 09:54:[address] [facility] Promethazine Hydrochloride 25 MG/ML Injectable Solutio n 09/28/2019 09:53:48 AM [facility]ital Misc. Devices (DURABLE MEDICAL EQUIPMENT SEE SIG) XX M ISC 09/21/2019 12:00:00 AM [facility] Bariatric Fusion Oral Tablet Chewable 09/11/2019 12:00:00 AM [facility] gabapentin 100 MG Oral Capsule 09/11/2019 12:00:00 AM [facility] Ondansetron 8 MG Disintegrating Oral Tablet 07/03/2019 12:00:00 AM [facility] Zolpidem tartrate 6.25 MG Extended Release Oral Tablet 07/02/2019 12:00:00 AM [facility] Promethazine Hydrochloride 25 MG Rectal Suppository [P kuldeep] 07/02/2019 12:00:00 AM [facility] Oxycodone Hydrochloride 10 MG Oral Tablet 06/18/2019 12:00:00 AM [facility] sodium chloride, preservative free, 0.9 % injection 05/15/20 12:00:00 AM [facility] Sodium Chloride Flush (NORMAL SALINE FLUSH) 0.9 % SOLN 05/15/2019 12:00:00 AM [facility]spital sodium chloride 0.9 % solution 04/30/2019 12:00:00 AM [facility] Glucagon 1 MG Injection 11/14/2018 12:00:00 AM [facility] Ondansetron 2 MG/ML Injectable Solution 04/16/2018 12:00:00 AM [facility] Zolpidem tartrate 5 MG Oral Tablet [facility] Zolpidem tartrate 6.25 MG Extended Release Oral Tablet ROBERTO ([facility]) Zolpidem tartrate 12.5 MG Extended Release Oral Tablet ROBERTO ([facility]) Zolpidem tartrate 5 MG Oral Tablet ROBERTO ([facility]) 1 ML heparin sodium, porcine 10 UNT/ML Injection [facility] 0.[facility] % intravenous solution ROBERTO ([facility]) sodium chloride 0.9 % intravenous piggyback ROBERTO ([facility]) Promethazine Hydrochloride 25 MG Rectal Suppository [Promethegan] ROBERTO ([facility]) Prednisone 20 MG Oral Tablet ROBERTO ([facility]) pantoprazole 40 MG Delayed Release Oral Tablet ROBERTO ([facility]) Oxycodone Hydrochloride 1 MG/ML Oral Solution ROBERTO ([facility]) Oxycodone Hydrochloride 5 MG Oral Tablet ROBERTO ([facility]) Oxycodone Hydrochloride 20 MG/ML Oral Solution ROBERTO ([facility]) Ondansetron 8 MG Disintegrating Oral Tablet ROBERTO ([facility]) Nystatin [id number] UNT/ML Topical Cream ROBERTO ([facility]) Morphine Sulfate 15 MG Oral Tablet ROBERTO ([facility]) Misoprostol 0.2 MG Oral Tablet ROBERTO ([facility]) Metronidazole 5 MG/ML Injectable Solution ROBERTO ([facility]) Metoclopramide 10 MG Oral Tablet ROBERTO ([facility]) linezolid 600 MG Oral Tablet ROBERTO ([facility]) 3 ML heparin sodium, porcine 100 UNT/ML Prefilled Syringe ROBERTO ([facility]) gabapentin 100 MG Oral Capsule ROBERTO ([facility]) Fluoxetine 4 MG/ML Oral Solution ROBERTO ([facility]) ertapenem 1 gram solution for injection ROBERTO ([facility]) 0.6 ML Enoxaparin sodium 100 MG/ML Prefilled Syringe ROBERTO ([facility]) Doxycycline Monohydrate 5 MG/ML Oral Suspension ROBERTO ([facility] [facility]) Ceftriaxone 2000 MG Injection ROBERTO ([facility]) Ceftriaxone 100 MG/ML Injectable Solution ROBERTO ([facility]) benzonatate 100 MG Oral Capsule ROBERTO ([facility]) Amoxicillin 500 MG Oral Capsule ROBERTO ([facility])
[2020-12-11] MEDS ORDERED: SODIUM CHLORIDE 0.9% INJ 10 ML SYR IV PRN ×2 (21:00→22:00)
[2020-12-11 22:20] LABS: BASO % 0.4 % (0.0-1.0); EOS # 0.2 10^3/uL (0.0-0.5); EOS % 1.8 % (0.0-3.0); HEMATOCRIT 38.6 % (36.0-47.0); HEMOGLOBIN 12.1 g/dl (12.0-15.5); LYMPH % 21.1 % (24.0-44.0); MEAN CORPUSCULAR HEMOGLOBIN 27.4 pg (27.0-33.0); MEAN CORPUSCULAR HGB CONC 31.3 g/dl (32.0-36.5); MEAN CORPUSCULAR VOLUME 87.5 fl (80.0-96.0); MONO # 0.6 10^3/uL (0.0-0.8); MONO % 6.7 % (2.0-8.0); NEUTROPHILS # 6.6 10^3/uL (1.5-8.5); NEUTROPHILS % 69.7 % (36.0-66.0); PLATELET COUNT, AUTOMATED 355 10^3/uL (150-450); RED BLOOD COUNT 4.41 10^6/uL (4.00-5.40); WHITE BLOOD COUNT 9.5 10^3/uL (4.0-10.0)
[2020-12-11 22:30] LABS: PROTHROMBIN TIME 16.5 SECONDS (12.5-14.3)
[2020-12-11] MEDS ORDERED: MORPHINE 4 MG/ML 1ML VIAL/SYRINGE (J2270) IV ONE (22:30)
[2020-12-11] MEDS ORDERED: ONDANSETRON 4MG/2ML VIAL IV ONE (22:30)
[2020-12-11 22:49] LABS: ALBUMIN 4.1 GM/DL (3.2-5.2); BILIRUBIN,DIRECT 0.2 MG/DL (0.0-0.2); BILIRUBIN,TOTAL 0.8 MG/DL (0.2-1.0); TOTAL PROTEIN 7.3 GM/DL (6.4-8.2)
[2020-12-11 23:21] LABS: PARTIAL THROMBOPLASTIN TIME > 240.0 SECONDS (24.2-38.5)
[2020-12-12] MEDS ORDERED: HYDROMORPHONE HCL 0.5 MG/ 0.5 ML SYRINGE (J1170 PER 1) IV ONE
[2020-12-12 00:09] LABS: INR 1.18; PROTHROMBIN TIME 15.3 SECONDS (12.5-14.3)
[2020-12-12 00:14] LABS: PARTIAL THROMBOPLASTIN TIME 163.6 SECONDS (24.2-38.5)
[2020-12-12] MEDS ORDERED: HEPA100I26 IV (00:14)
[2020-12-12] MEDS ORDERED: ENOX100I3 SUBQ (00:14)
[2020-12-12 02:01] VITALS: BP 106/69
[2020-12-12] MEDS ORDERED: diphenhydrAMINE 50MG/ML VIAL (J1200) As Ordered ONE (02:08)
[2020-12-12] MEDS ORDERED: diphenhydrAMINE 50MG/ML VIAL (J1200) IV ONE (02:15)
== END 2020-12-12 02:18 | disposition short-term general hospital (02) ==
LOC: M ED 19:56
DX: K92.2 Gastrointestinal hemorrhage, unspecified (principal); K94.23 Gastrostomy malfunction; E11.9 Type 2 diabetes mellitus without complications; I95.9 Hypotension, unspecified; F44.5 Conversion disorder with seizures or convulsions; J45.909 Unspecified asthma, uncomplicated; M54.30 Sciatica, unspecified side; N93.8 Other specified abnormal uterine and vaginal bleeding; K31.84 Gastroparesis; Z91.5 Personal history of self-harm; Z86.718 Personal history of other venous thrombosis and embolism; Z98.84 Bariatric surgery status; Z79.899 Other long term (current) drug therapy; Z88.6 Allergy status to analgesic agent; Z88.2 Allergy status to sulfonamides; Z88.5 Allergy status to narcotic agent; Z88.8 Allergy status to other drugs, medicaments and biological substances; Z91.018 Allergy to other foods
CPT/HCPCS: 80047; 80076; 85025; 85610; 85730; 86850; 86900; 86901; 87798; 96374; 96375; 99284; J1170; J1642; J2270; J2405

== ENCOUNTER → 2021-01-08 | Outpatient (REF) | payer BC, OTHER ==
[~2021-01-08] MED LIST changes: +ENOX100I3 SUBQ
[2021-01-08 08:37] LABS: BASO % 0.4 % (0.0-1.0); EOS # 0.3 10^3/uL (0.0-0.5); EOS % 3.4 % (0.0-3.0); HEMATOCRIT 35.9 % (36.0-47.0); HEMOGLOBIN 11.2 g/dl (12.0-15.5); LYMPH # 1.2 10^3/uL (1.5-5.0); LYMPH % 14.2 % (24.0-44.0); MEAN CORPUSCULAR HGB CONC 31.2 g/dl (32.0-36.5); MONO # 1.1 10^3/uL (0.0-0.8); MONO % 13.5 % (2.0-8.0); NEUTROPHILS # 5.6 10^3/uL (1.5-8.5); NEUTROPHILS % 67.8 % (36.0-66.0); PLATELET COUNT, AUTOMATED 264 10^3/uL (150-450); RED BLOOD COUNT 3.86 10^6/uL (4.00-5.40); WHITE BLOOD COUNT 8.2 10^3/uL (4.0-10.0)
[2021-01-08 08:40] LABS: ALBUMIN 3.5 GM/DL (3.2-5.2); ALT/SGPT 37 U/L (12-78); BILIRUBIN,TOTAL 0.3 MG/DL (0.2-1.0); BLOOD UREA NITROGEN 9 MG/DL (7-18); CALCIUM LEVEL 8.4 MG/DL (8.5-10.1); CARBON DIOXIDE LEVEL 30 MEQ/L (21-32); CHLORIDE LEVEL 109 MEQ/L (98-107); CHOLESTEROL LEVEL 194 MG/DL (<200); CHOLESTEROL RISK RATIO 4.311 (<5); CREATININE FOR GFR 0.66 MG/DL (0.55-1.30); GLOMERULAR FILTRATION RATE > 60.0 (>58); GLUCOSE, FASTING 92 MG/DL (70-100); HDL CHOLESTEROL 45 MG/DL (>40); LDL CHOLESTEROL 120 MG/DL (<100); MAGNESIUM LEVEL 1.9 MG/DL (1.8-2.4); NON-HDL-C 149 MG/DL; PHOSPHORUS LEVEL 4.4 MG/DL (2.5-4.9); SODIUM LEVEL 143 MEQ/L (136-145); TOTAL PROTEIN 6.4 GM/DL (6.4-8.2); TRIGLYCERIDES LEVEL 146 MG/DL (<150)
== END ==
LOC: M LAB REF 08:12
PROVIDERS: ATTEND Internal Medicine Gastroenterology
DX: K31.84 Gastroparesis (principal); Z98.84 Bariatric surgery status; K21.9 Gastro-esophageal reflux disease without esophagitis

== ENCOUNTER → 2021-01-14 | Outpatient (REF) | payer BC, OTHER ==
[2021-01-14 20:57] LABS: BASO % 0.4 % (0.0-1.0); EOS # 0.3 10^3/uL (0.0-0.5); EOS % 4.5 % (0.0-3.0); HEMATOCRIT 38.3 % (36.0-47.0); HEMOGLOBIN 12.5 g/dl (12.0-15.5); LYMPH # 1.5 10^3/uL (1.5-5.0); MEAN CORPUSCULAR HEMOGLOBIN 29.6 pg (27.0-33.0); MEAN CORPUSCULAR HGB CONC 32.6 g/dl (32.0-36.5); MEAN CORPUSCULAR VOLUME 90.5 fl (80.0-96.0); MONO # 0.6 10^3/uL (0.0-0.8); MONO % 8.2 % (2.0-8.0); NEUTROPHILS # 4.5 10^3/uL (1.5-8.5); NEUTROPHILS % 65.3 % (36.0-66.0); PLATELET COUNT, AUTOMATED 313 10^3/uL (150-450); RED BLOOD COUNT 4.23 10^6/uL (4.00-5.40)
[2021-01-14 21:19] LABS: ALBUMIN 3.7 GM/DL (3.2-5.2); ALT/SGPT 17 U/L (12-78); BILIRUBIN,TOTAL 0.2 MG/DL (0.2-1.0); BLOOD UREA NITROGEN 9 MG/DL (7-18); CALCIUM LEVEL 8.4 MG/DL (8.5-10.1); CARBON DIOXIDE LEVEL 29 MEQ/L (21-32); CHLORIDE LEVEL 106 MEQ/L (98-107); CHOLESTEROL LEVEL 217 MG/DL (<200); CHOLESTEROL RISK RATIO 5.564 (<5); CREATININE FOR GFR 0.72 MG/DL (0.55-1.30); GLOMERULAR FILTRATION RATE > 60.0 (>58); GLUCOSE, FASTING 113 MG/DL (70-100); HDL CHOLESTEROL 39 MG/DL (>40); LDL CHOLESTEROL 122 MG/DL (<100); MAGNESIUM LEVEL 2.7 MG/DL (1.8-2.4); NON-HDL-C 178 MG/DL; PHOSPHORUS LEVEL 3.7 MG/DL (2.5-4.9); SODIUM LEVEL 141 MEQ/L (136-145); TOTAL PROTEIN 6.7 GM/DL (6.4-8.2); TRIGLYCERIDES LEVEL 279 MG/DL (<150)
== END ==
LOC: M LAB 20:43
PROVIDERS: ATTEND Internal Medicine Gastroenterology
DX: K31.84 Gastroparesis (principal); Z98.84 Bariatric surgery status; K21.00 Gastro-esophageal reflux disease with esophagitis, without bleeding

== ENCOUNTER 2021-02-07 15:53 | Inpatient (IN) | payer BC, OTHER ==
[~2021-02-07] VITALS: Ht 170.2 cm; Wt 88.3 kg
[~2021-02-07 15:53] MED LIST changes: +PANT40IN4 IV; -PANT40IN4 SC
[2021-02-07 16:56] LABS: HEMATOCRIT 40.5 % (36.0-47.0); MEAN CORPUSCULAR HEMOGLOBIN 28.8 pg (27.0-33.0); MEAN CORPUSCULAR HGB CONC 32.1 g/dl (32.0-36.5); MEAN CORPUSCULAR VOLUME 89.6 fl (80.0-96.0); PLATELET COUNT, AUTOMATED 299 10^3/uL (150-450); RED BLOOD COUNT 4.52 10^6/uL (4.00-5.40); WHITE BLOOD COUNT 13.4 10^3/uL (4.0-10.0)
[2021-02-07] MEDS ORDERED: ACETAMINOPHEN TAB 650MG DOSE (2X325MG) PO ONE (17:00)
[2021-02-07 17:26] LABS: BLOOD UREA NITROGEN 8 MG/DL (7-18); CALCIUM LEVEL 9.3 MG/DL (8.5-10.1); CARBON DIOXIDE LEVEL 26 MEQ/L (21-32); CHLORIDE LEVEL 102 MEQ/L (98-107); CREATININE FOR GFR 0.63 MG/DL (0.55-1.30); GLOMERULAR FILTRATION RATE > 60.0 (>58); GLUCOSE, FASTING 124 MG/DL (70-100); POTASSIUM SERUM 4.8 MEQ/L (3.5-5.1); SODIUM LEVEL 135 MEQ/L (136-145)
[2021-02-07] MEDS ORDERED: MORPHINE 2 MG/ML 1ML VIAL (J2270) IV ONE (17:40)
[2021-02-07] MEDS ORDERED: NS 1,000 ML IV ONE ×2 (17:40)
[2021-02-07 18:27] LABS: BASO % 0.1 % (0.0-1.0); EOS % 0.3 % (0.0-3.0); LYMPH # 0.8 10^3/uL (1.5-5.0); LYMPH % 5.9 % (24.0-44.0); MONO # 1.2 10^3/uL (0.0-0.8); MONO % 8.7 % (2.0-8.0); NEUTROPHILS # 11.3 10^3/uL (1.5-8.5); NEUTROPHILS % 84.4 % (36.0-66.0)
--- NOTE | 2021-02-07 18:28 | REP ---
INDICATION: swelling over galicia errythema COMPARISON: None. TECHNIQUE: Directed ultrasound examination using linear high-frequency transducer. FINDINGS: Directed ultrasound examination along the left side of the neck at the area of pain and swelling surrounding Galicia port demonstrates small amount of adjacent fluid surrounding the port in the subcutaneous tissues. Finding is nonspecific. No further abnormality identified. IMPRESSION: Small amount of subcutaneous fluid surrounds the port which should be correlated clinically. Otherwise unremarkable directed ultrasound. <Electronically signed by Michael James > 02/07/21 [id number]
[2021-02-07] MEDS ORDERED: ZOLP12.518 GT (18:31)
[2021-02-07] MEDS ORDERED: VOLT1GEL15 TOP (18:31)
--- NOTE | 2021-02-07 18:37 | REP ---
INDICATION: SEPSIS/SHOCK COMPARISON: 11/07/2020 TECHNIQUE: Portable AP view of the chest FINDINGS: The mediastinum and cardiac silhouette are stable and within normal limits for portable technique. Tunneled catheter with tip in the SVC/right atrium. The lung snell are clear without acute consolidation, effusion, or pneumothorax. Skeletal structures are intact. IMPRESSION: No acute cardiopulmonary process appreciated. <Electronically signed by Michael James > 02/07/21 1301
[2021-02-07 18:46] LABS: INR 0.94; PROTHROMBIN TIME 12.8 SECONDS (12.5-14.3)
[2021-02-07 18:46] LABS: ALBUMIN 3.5 GM/DL (3.2-5.2); ALT/SGPT 55 U/L (12-78); AMYLASE 19 U/L (25-115); BILIRUBIN,DIRECT 0.2 MG/DL (0.0-0.2); BILIRUBIN,TOTAL 1.1 MG/DL (0.2-1.0); C REACTIVE PROTEIN QUANTITATIV 7.54 MG/DL (0.00-0.30); CK-MB VALUE MASS < 1.0 NG/ML (<3.6); CPK CREATINE PHOSPHOKINASE 68 U/L (26-192); MB/CK RELATIVE INDEX 1.47 (< OR =4); TROPONIN I < 0.02 NG/ML (< 0.10)
[2021-02-07 18:47] LABS: PARTIAL THROMBOPLASTIN TIME 32.6 SECONDS (24.2-38.5)
[2021-02-07 19:00] LABS: VENOUS BASE EXCESS -0.5 (-2.0-2.0); VENOUS HCO3 23.3 MEQ/L (23.0-27.0); VENOUS O2 SATURATION 95.7 % (60.0-80.0); VENOUS PARTIAL PRESSURE CO2 35.6 mmHg (38.0-50.0); VENOUS PARTIAL PRESSURE O2 72.7 mmHg (30.0-50.0); VENOUS PH 7.433 UNITS (7.330-7.430); VENOUS TOTAL CO2 24.4 MEQ/L (24.0-28.0)
[2021-02-07 19:25] LABS: RSV AMPLIFICATION NEGATIVE (NEGATIVE)
[2021-02-07] MEDS ORDERED: PIPERACILLIN/TAZOBACTAM SOD 3.375 GM in D5W MINI-BAG PLUS 50 ML IV ONE (19:40)
[2021-02-07 20:13] LABS: APPEARANCE, URINE CLEAR (CLEAR); BACTERIA, URINE AUTO NEGATIVE (NEGATIVE); BILIRUBIN, URINE AUTO NEGATIVE (NEGATIVE); BLOOD, URINE BLOOD NEGATIVE (NEGATIVE); COLOR, URINE YELLOW (YELLOW); GLUCOSE, URINE (UA) AUTO NEGATIVE (NEGATIVE); KETONE, URINE AUTO NEGATIVE (NEGATIVE); LEUKOCYTE ESTERASE, URINE AUTO NEGATIVE (NEGATIVE); NITRITE, URINE AUTO NEGATIVE (NEGATIVE); PROTEIN, URINE AUTO NEGATIVE (NEGATIVE); RBC, URINE AUTO 2 /HPF (0-3); SPECIFIC GRAVITY URINE AUTO 1.011 (1.002-1.035); SQUAMOUS EPITHELIAL CELL UR AU 2 /HPF (0-6); WBC, URINE AUTO 0 /HPF (0-3)
[2021-02-07] MEDS ORDERED: diphenhydrAMINE 50MG/ML VIAL (J1200) IV PRN (21:00)
[2021-02-07] MEDS ORDERED: SODIUM CHLORIDE 0.9% 1000ML IV SCH (21:00)
[2021-02-07] MEDS ORDERED: ALBUTEROL SULFATE 2.5 MG/0.5 ML INH NEB SOLN INH PRN (21:00)
--- NOTE | 2021-02-07 21:13 | IPNPDOC ---
Text Note Date of Service The patient was seen on 02/07/21. 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 Plan: she will be admitted to PCU / we will f/u the blood cx results / will ask the day time team to consult IR to remove the catheter and send the tip of the catheter for culture / in the meanwhile we will start the patient on Zosyn, Vanc / call ID to discuss whether we should start the patient on Fluconazole (bc she is at risk for a fungal infection in the setting of TPN use) / bc her left eye hurts we will also ask the day time team to consult Ophthalmology for an eye exam to ensure that she doesnt have a fungal endophthalmitis / bc she has transaminitis we will check a Hepatitis panel and liver US Rest per H&P VS,Joel, I+O VS, Joel, I+O Laboratory Tests 02/07/21 16:36 Vital Signs Date Time Temp Pulse Resp B/P (MAP) Pulse Ox O2 Delivery O2 Flow Rate FiO2 02/07/21 18:42 99.0 16 02/07/21 18:38 121 96 02/07/21 18:31 119/71 (87) 02/07/21 15:54 Room Air FABIEN ROSADO MD Feb 07, 2021 21:13
[2021-02-07] MEDS ORDERED: VANCOMYCIN HCL 500 MG in D5W MINI-BAG PLUS 100 ML IV ONE (21:30)
[2021-02-07] MEDS: MORPHINE 2 MG/ML 1ML VIAL (J2270) IV PRN (21:51)
--- NOTE | 2021-02-07 21:57 | HPEPDOC ---
[facility] Medical History & Physical Date of Admission Feb 07, 2021 Date of Service: Feb 07, 2021 Primary Care Physician: XAVI FAN MD Attending Physician: FABIEN ROSADO MD History and Physical CHIEF COMPLAINT: pain HISTORY OF PRESENT ILLNESS: Patient is a 41 year old female who presents to the ED with complains of abd pain and neck pain. She reports that her abd pain started 5 days ago and feels like hunger pains. Her neck pain started 2-3 days ago and worsened yesterday and is more around the site of her port on the L. She states that there has been increasing erythema, warmth, and pain around the site and the redness has spread. Admits to chills but is unsure if she had any fevers. Mother reports that there was a pustule around the port site that drained yellow fluid this morning. Pt last accessed the port this morning and did not have pain when accessing the port. The bandages around the port are to be changed today. She also complains of nausea and vomiting with "a couple" episodes of vomiting. Admits to diarrhea yesterday that was worse than her usual chronic diarrhea. In addition, pt also complains of pain behind her L eye that started 2-3 days ago and is associated with blurry vision. Her L eye pain is also associated with weakness to her R extremities. Mother states that she noticed that pt pupils are intermittently unsymmetrical and "one appears bigger than the other one". REVIEW OF SYSTEMS: 12 point review of symptoms was done and was negative other than what was stated above. PAST MEDICAL/SURGICAL HISTORY: Gastric bypass surgery with complications Short gut syndrome GERD Hx of severe gastroparesis on chronic TPN and J-tube for feeding and meds Chronic back and abdominal pain Depression and anxiety Chronic iron deficiency anemia requiring transfusions, iron infusions Protein S deficiency on Lovenox History of thrombocytosis Hx of recurrent SBO Hx of recurrent GI bleed Power PICC placement right chest 02/2020 Back surgery Tonsillectomy Gastric bypass with later reversal Endometrial ablation Hysterectomy Galicia catheter Right leg wound drained Left subclavian port placed, removed J-tube placement Removal of G-tube Placement subclavian port with removal in 2018 PICC line placed in 2018 Bowel resection SOCIAL HISTORY: Pt denies tobacco or EtOH use. FAMILY HISTORY: Father: HTN. / Mother: Clotting disorder. ALLERGIES: Please see below. HOME MEDICATIONS: Please see below. PHYSICAL EXAMINATION: VITAL SIGNS: Temperature 101.7, pulse 147, respiratory rate 20, blood pressure 127/62, pulse oximetry 98% on room air. GENERAL APPEARANCE: Pt is laying in bed, appears to be fatigued and in pain. Is tearful during examination. HEENT: NC/AT. EOMI. PERRLA. Conjunctiva and lids normal. No scleral icterus. CARDIOVASCULAR: Tachycardic. Regular rhythm. No murmurs, rubs, or gallops appreciated. LUNGS: Lungs clear to auscultation. No wheezes, rales, or rhonchi appreciated. CHEST WALL: Port site on L anterior chest below L clavicle has area of erythema and warmth around it. Tenderness to palpation. ABDOMEN: Abd soft. Tenderness around J tube. J tube has an area of erythema and serosanguineous drainage around it. EXTREMITIES: No pitting edema to BLE. NEUROLOGICAL: Pt is able to answer questions without difficulty. Strength 5/5 in all four extremities. Pt had an episode of what her mother calls pseudoseizures where pt was shaking in all four extremities and was unable to answer questions. She was alert and able to answer questions after this episode. LABORATORY DATA: IMAGING: Chest x-ray (02/07/21) No acute cardiopulmonary process appreciated per Dr. Michael James. Thyroid US (02/07/21) Small amount of subcutaneous fluid surrounds the port which should be correlated clinically. Otherwise unremarkable directed ultrasound per Dr. Michael James. MICROBIOLOGY: 02/07/21 Urine Culture, Received Pending 02/07/21 Blood Culture, Received Pending 02/07/21 Blood Culture, Received Pending ASSESSMENT/PLAN: is a 41 year old female with a past medical hx of severe gastroparesis on chronic TPN use and J tube for feeding/meds, Galicia catheter in place, chronic abd pain, malabsorption, short gut syndrome, GERD, depression, anxiety who presents to the ED with complains of abd pain, neck pain around her port site, L eye pain & blurry vision; she will be admitted for management of sepsis likely 2/2 cellulitis w Galicia catheter infection. #Sepsis - Likely 2/2 cellulitis / Galicia Catheter infection - Meets SIRS criteria: Temp >100.4 (100.7), HR >90 (147), WBC>12,000 (13.4). - On examination, pt has erythema, warmth, swelling, and tenderness around her port site. She states that the redness has spread within the past three days and the pain has increased. - Will hold off on port access at this time due to possible infection. - CRP elevated at 7.54. - UA negative. UTI unlikely source of infection at this time. - US shows small amount of subcutaneous fluid surrounds the port. - Blood and urine cultures have been ordered and pending. - Port cultures have been ordered. - Pt was started on Pip/Tazo IV in the ED once. - Vancomycin and Pip/tazo have been ordered IV for broad spectrum coverage. - Discussed pt case with Dr. Orozco, DEMARCUS. She reports that pt has not had hx of angelica in previous cultures. Will hold off on fungal coverage until port cultures have returned. - Will not access port. - Morphine 2 mg Q2H PRN IV for breakthrough pain has been ordered. - Will continue to monitor vitals and labs. - Day team to consult IR to remove catheter and send tip of catheter for culture. #L eye pain - Will have day team consult ophthalmology for eye examination to rule out eye pathology. - Will continue to assess. #Elevated liver enzymes - AST elevated at 53, alkaline phosphatase elevated at 211, and total bilirubin elevated at 1.1. - Pt liver enzymes are usually WNL at baseline based on past medical records. - Last hepatitis panel done in January 2020 and was negative. Will repeat hepatitis profile at this time. - Liver US ordered. Will keep pt on NPO diet at this time. - Will trend liver enzymes. #Pseudoseizures - Pt mother reports that pt has hx of these pseudoseizures and she follows neurology in regards to this. - Upon review of her past records pt has reported hx of psychogenic non- epileptic seizures - Will place pt on seizure precautions. - Will monitor. - Will have pt follow up with her neurologist outpatient. #GERD - Continue home medication Protonix. #Depression and Anxiety - Will continue home medication Fluoxetine. DVT Prophylaxis: Lovenox 40 mg SC Daily. Disposition: home after at least 2 midnight's stay Resident attestation: I interviewed and examined the patient with Sailaja Izaguirre OMS-III. We discussed the assessment and plan and I reviewed her note and I agree with the above. Home Medications Scheduled Fluoxetine Hcl (Fluoxetine HCl) 20 Mg Capsule, 20 MG GT DAILY Multivit Infusn,Adult 4,Vit K (Infuvite) 10 Ml Vial, 10 ML IV DAILY THROUGH GALICIA CATHETER Pantoprazole Sodium (Pantoprazole Sodium) 40 Mg Vial, 40 MG IV BID THROUGH GALICIA CATHETER levETIRAcetam (levETIRAcetam) 500 Mg Tablet, 500 MG GT BID Scheduled PRN Albuterol Sulf (Albuterol Sulfate) 2.5 Mg/3 Ml Vial.neb, 2.5 MG INH Q4H PRN for SHORTNESS OF BREATH Albuterol Sulfate (Ventolin Hfa) 18 Gm Hfa.aer.ad, 2 PUFF INH Q6H PRN for SHORTNESS OF BREATH Diclofenac Sodium (Voltaren) 100 Gm Gel..gram., 1 GRAM TOP BID PRN for PAIN APPLY TO RIGHT HIP Diphenhydramine HCl (Diphenhydramine HCl) 50 Mg/1 Ml Vial, 50 MG IV BID PRN for SEVERE NAUSEA THROUGH GALICIA CATHETER Ondansetron (Ondansetron HCl) 2 Mg/1 Ml Vial, 4 MG IV BID PRN for NAUSEA OR VOMITING THROUGH GALICIA CATHETER Oxycodone HCl (Oxycodone HCl) 20 Mg/1 Ml Oral.conc, 2 ML PO Q4H PRN for PAIN Zolpidem Tartrate (Zolpidem Tartrate ER) 12.5 Mg Tab.mphase, 12.5 MG GT QHS PRN for SLEEP Allergies Coded Allergies: Sulfa (Sulfonamide Antibiotics) (Verified Allergy, Severe, RESP. PROBLEMS, SWELLING, HIVES, 06/28/20) butorphanol (Verified Allergy, Severe, HIVES/RESP. PROBLEMS (PERCOCET AND TYL#3 OK), 06/28/20) HAS HAD MORPHINE AND DILAUDID IN THE PAST levofloxacin (Verified Allergy, Severe, THROAT SWELLING/HIVES, 06/28/20) tomato (Verified Allergy, Severe, RESP. PROBLEMS, HIVES, 06/28/20) tramadol (Verified Allergy, Severe, SOB - HAS HAD MORPHINE AND DILAUDID IN THE PAST, 06/28/20) scopolamine (Verified Adverse Reaction, Intermediate, VISION LOSS, 06/28/20) NSAIDS (Non-Steroidal Anti-Inflamma (Verified Adverse Reaction, Mild, GASTRIC BYPASS, 06/28/20) A-FIB/CHADSVASC A-FIB History Current/History of A-Fib/PAF?: No GME ATTESTATION GME ATTESTATION My faculty preceptor for this patient encounter was physically present during the encounter and was fully available. All aspects of the patient interview, examination, medical decision making process, and medical care plan development were reviewed and approved by the faculty preceptor. The faculty preceptor is aware and concurs with the plan as stated in the body of this note and will attest to such by his/her cosignature. ATTENDING NOTE I independently examined the patient, reviewed the H&P, discussed the case with Sailaja Izaguirre and , edited the note, and agree with the findings as documented. Time of service 805pm is a 40-year-old F w a hx of gastric bypass complicated by gastroparesis & short gut syndrome requiring J tube and TPN malabsorption resulting in AKBAR, thrombosis likely 2/2 Protein S deficiency, chronic abdominal and back pain, depression and anxiety who presented w c/o generalized malaise, left eye pain, right upper chest and neck pain ; she will be admitted for sepsis likely 2/2 cellulitis / Galicia cath infection. Plan: she will be admitted to PCU / we will f/u the blood cx results / will ask the day time team to consult IR to remove the catheter and send the tip of the c atheter for culture / in the meanwhile we will start the patient on Zosyn, Vanc / call ID to discuss whether we should start the patient on Fluconazole (bc she is at risk for a fungal infection in the setting of TPN use) / bc her left eye hurts we will also ask the day time team to consult Ophthalmology for an eye exam to ensure that she doesnt have a fungal endophthalmitis / bc she has transaminitis we will check a Hepatitis panel and liver US Rest per Sailaja Izaguirre & H&P Sailaja IZAGUIRRE OMS-3 Feb 07, 2021 21:57 VILLA AMOS DO Feb 08, 2021 00:43 FABIEN ROSADO MD Feb 08, 2021 01:28
--- NOTE | 2021-02-07 23:06 | REPVR ---
PROCEDURE INFORMATION: Exam: US Abdomen, Limited; Right Upper Quadrant Exam date and time: 02/07/2021 10:09 PM Age: 41 years old Clinical indication: Abnormal findings; Abnormal lab test; Elevated liver enzymes; Prior surgery; Surgery date: 6+ months; Surgery type: Cholecystectomy; Additional info: Elevated transaminases and total bili TECHNIQUE: Imaging protocol: US abdomen. Real time ultrasound with image documentation. Limited exam focused on the right upper quadrant. COMPARISON: 1. LIVER US 2019-07-13 21:11 2. ABD COMPLETE US 2019-01-12 07:21 FINDINGS: Liver: Hepatic steatosis. Liver is partially obscured related to rib shadows and body habitus. Gallbladder: Cholecystectomy. Common bile duct: Common biliary duct measures 10 mm. Pancreas: Visualized pancreas is unremarkable. Right kidney: Unremarkable 10.8 cm right kidney. IMPRESSION: 1. Hepatic steatosis. 2. Dilated common biliary duct measuring 10 mm, previously 12 mm. Presumably related to prior cholecystectomy and physiologic. Electronically signed by: Guzman See On 02/07/2021 23:06:20 PM
[2021-02-07] MEDS: PANTOPRAZOLE 40MG VIAL (C9113 PER 1) IV SCH (23:56)
[2021-02-08] MEDS: VANCOMYCIN HCL 1,000 MG, VIAL MATE ADAPTER 1 EACH in NS 250 ML IV SCH ×2 (03:13→09:40)
[2021-02-08] MEDS: zolPIDEM TARTRATE 5 MG TAB PO PRN ×2 (03:17→21:01)
[2021-02-08] MEDS: PIPERACILLIN/TAZOBACTAM SOD 4.5 GM in D5W MINI-BAG PLUS 50 ML IV SCH ×4 (05:13→21:02)
[2021-02-08] MEDS: MORPHINE 2 MG/ML 1ML VIAL (J2270) IV PRN ×4 (06:26→18:18)
[2021-02-08 08:13] LABS: HEMATOCRIT 34.4 % (36.0-47.0); MEAN CORPUSCULAR HEMOGLOBIN 28.7 pg (27.0-33.0); MEAN CORPUSCULAR HGB CONC 31.4 g/dl (32.0-36.5); MEAN CORPUSCULAR VOLUME 91.5 fl (80.0-96.0); PLATELET COUNT, AUTOMATED 235 10^3/uL (150-450); RED BLOOD COUNT 3.76 10^6/uL (4.00-5.40); WHITE BLOOD COUNT 9.2 10^3/uL (4.0-10.0)
[2021-02-08] MEDS: FLUoxetine 20 MG CAP GT SCH (08:24)
[2021-02-08] MEDS: PANTOPRAZOLE 40MG VIAL (C9113 PER 1) IV SCH ×2 (08:25→20:57)
[2021-02-08] MEDS: ENOXAPARIN 40MG/0.4ML SYRINGE (J1650 PER 10MG) SC SCH (08:29)
[2021-02-08 08:30] LABS: HEMOGLOBIN 10.8 g/dl (12.0-15.5)
[2021-02-08] MEDS ORDERED: MULTIVITAMIN -ADULT INJECTION 10 ML in NS 1,000 ML IV SCH ×2 (09:00→16:36)
[2021-02-08] MEDS ORDERED: MVI -ADULT INJECTION 10ML VIAL IV SCH (09:00)
[2021-02-08 09:20] LABS: ALBUMIN 2.9 GM/DL (3.2-5.2); ALT/SGPT 49 U/L (12-78); BILIRUBIN,TOTAL 1.4 MG/DL (0.2-1.0); BLOOD UREA NITROGEN 6 MG/DL (7-18); CALCIUM LEVEL 8.4 MG/DL (8.5-10.1); CARBON DIOXIDE LEVEL 26 MEQ/L (21-32); CHLORIDE LEVEL 107 MEQ/L (98-107); CREATININE FOR GFR 0.52 MG/DL (0.55-1.30); GLOMERULAR FILTRATION RATE > 60.0 (>58); GLUCOSE, FASTING 130 MG/DL (70-100); MAGNESIUM LEVEL 1.9 MG/DL (1.8-2.4); SODIUM LEVEL 138 MEQ/L (136-145); TOTAL PROTEIN 6.4 GM/DL (6.4-8.2)
[2021-02-08 09:24] LABS: POTASSIUM SERUM 3.7 MEQ/L (3.5-5.1)
[2021-02-08] MEDS ORDERED: LIDOCAINE 1% MDV 20ML VIAL As Ordered ONE ×3 (10:47→16:06)
[2021-02-08] MEDS ORDERED: HYDROmorphone HCL 2 MG/ML 1ML VIAL (J1170) As Ordered ONE (10:53)
[2021-02-08 11:22] LABS: HEPATITIS A ANTIBODY IGM NEGATIVE (NEGATIVE); HEPATITIS B CORE ANTIBODY IGM NEGATIVE (NEGATIVE); HEPATITIS B SURFACE ANTIGEN NEGATIVE (NEGATIVE)
--- NOTE | 2021-02-08 15:18 | REP ---
INDICATION: poor venous access, needs PICC. COMPARISON: None. TECHNIQUE: The procedure was performed under the direct supervision of Dr. Valdez. The risks and benefits of the procedure were explained to the patient and informed consent was obtained. The right brachial vein was localized using ultrasound guidance. The skin was prepped and draped in a sterile fashion. 2% lidocaine was used as a local anesthetic. Using ultrasound guidance the brachial vein was cannulated and a 0.018 guidewire was inserted and advanced to the SVC using fluoroscopic guidance, and last image hold technology. The needle was removed and a 5.5 Bangladeshi dilator and peel-away sheath was inserted over the guide wire. A 5.5 Bangladeshi dual lumen catheter was cut to length of 43 cm. The dilator was removed and the catheter was inserted over the guide wire with the tip ending in the SVC. The peel-away sheath was removed and the catheter was flushed with heparinized saline as per Hospital protocol. The catheter was affixed to the skin and a sterile dressing was applied. The patient tolerated the procedure well and there were no immediate complications. 0.2 minutes of fluoro time was utilized for this procedure. FINDINGS: None IMPRESSION: PICC line insertion right brachial vein with the tip ending in the SVC. <Electronically signed by Chip Najera > 02/08/21 1502 <Electronically signed by Donald Valdez > 02/08/21 [id number]
[2021-02-08] MEDS ORDERED: fentaNYL 100 MCG/2 ML INJECTION (J3010) As Ordered ONE (16:00)
[2021-02-08] MEDS ORDERED: MIDAZOLAM INJ 2MG/2ML VIAL (J2250 PER 1MG) As Ordered ONE (16:00)
[2021-02-08] MEDS ORDERED: propofoL 200 MG/20 ML VIAL As Ordered ONE (16:01)
[2021-02-08] MEDS ORDERED: LIDOCAINE 2% 100MG/5ML SDV (FOR ANES.) As Ordered ONE (16:01)
[2021-02-08] MEDS ORDERED: LR 1,000 ML IV SCH (17:05)
[2021-02-08] MEDS ORDERED: fentaNYL 100 MCG/2 ML INJECTION (J3010) IV PRN (17:05)
[2021-02-08 17:55] VITALS: BP 149/65
[2021-02-08] MEDS: VANCOMYCIN HCL 750 MG, VIAL MATE ADAPTER 1 EACH in NS 250 ML IV SCH (18:23)
[2021-02-08] MEDS: NS 1,000 ML IV SCH (18:24)
--- NOTE | 2021-02-08 18:41 | IPNPDOC ---
Date Seen The patient was seen on 02/08/21. Progress Note SUBJECTIVE: PICC placed in RUE, Galicia cath removed with tip sent for culture. On vancotipn. Threatened to leave AMA but later decided to stay. Denies increased SOB, n/v/d. OBJECTIVE: PHYSICAL EXAMINATION: VITAL SIGNS: Please see below GENERAL APPEARANCE: NAD, resting in bed HEENT: NC/AT. EOMI. PERRLA. Conjunctiva and lids normal. No scleral icterus. CARDIOVASCULAR: Tachycardic. Regular rhythm. No murmurs, rubs, or gallops appreciated. LUNGS: Lungs clear to auscultation. No wheezes, rales, or rhonchi appreciated. CHEST WALL: Port site on L anterior chest below L clavicle has area of erythema and warmth around it. Tenderness to palpation. ABDOMEN: Abd soft. Tenderness around J tube. J tube has an area of erythema and serosanguineous drainage around it. EXTREMITIES: No pitting edema to BLE. NEUROLOGICAL: CN 2-12 intact, no focal deficits LABORATORY DATA: Please see below IMAGING: Chest x-ray (02/07/21) No acute cardiopulmonary process appreciated per Dr. Michael James. Thyroid US (02/07/21) Small amount of subcutaneous fluid surrounds the port which should be correlated clinically. Otherwise unremarkable directed ultrasound per Dr. Michael James. Liver US: 1. Hepatic steatosis. 2. Dilated common biliary duct measuring 10 mm, previously 12 mm. Presumably related to prior cholecystectomy and physiologic. MICROBIOLOGY: Galicia catheter tip Cx: f/u results Blood cultures: pending UA: neg ASSESSMENT: is a 41 year old female with a past medical hx of severe gastroparesis on chronic TPN use and J tube for feeding/meds, Galicia catheter in place, chronic abd pain, malabsorption, short gut syndrome, GERD, depression, anxiety who presents to the ED with complains of abd pain, neck pain around her port site, L eye pain & blurry vision; she will be admitted for management of sepsis likely 2/2 cellulitis w Galicia catheter infection. PLAN: Left chest cellulitis likely 2/2 to Galicia catheter infection, sepsis -T max 101.7, HR 108, WBC 13K --> 9.2 today. -LA wnl -S/p Galicia catheter removal by IR requiring increased pain control/anesthesia -PICC placed in RUE -F/u all cultures above -C/w zosyn, vancomycin, tylenol PRN, pain control, NS at 125 cc/hr -On admission case was discussed with DEMARCUS Shah. She reports that pt has not had hx of angelica in previous cultures as she is on TPN. Will hold off on fungal coverage until port cultures have returned. L eye pain -No complaints on evaluation today -if returns can consult ophthalmology -Will continue to assess. Elevated liver enzymes possibly 2/2 to hepatic steatosis -AST slightly improved, alkaline phosphatase and t bili slightly incr -No abdominal pain -WNL at bl -Hepatitis neg -Liver US above -CMP daily Pseudoseizures -No seizures since admission. -Pt mother reports that pt has hx of these pseudoseizures and she follows neurology in regards to this. -seizure precautions. -monitor, follow up with her neurologist outpatient. Depression/anxiety -Denies HI/SI -C/w home meds Severe gastroparesis with malabsorption, on daily TPN. Hx of short gut syndrome -Will consult nutrition to see what we will need to start for TPN, can also have patient's family to bring in TPN so we can see what she takes -Regular diet for now -Zofran PRN, IVFs for now Chronic iron deficiency anemia requiring transfusions, iron infusions -H/H near baseline -Daily CBC -F/u with Heme/onc o/p Chronic back and abdominal pain -Holding home PO meds -Morphine PRN for now Protein S deficiency -AC per current home regimen Hx of recurrent GI bleed -Follows with heme/onc for this and protein S deficiency, hx of clots -previously on lovenox BID, will confirm not still on this -No s/s of bleeding currently GERD -C/w PPI BID DVT px -Lovenox. Was previously on BID dosing, will verify to see if this is still needed. DISPOSITION: C/w treatment above. Plan is d/c home when medically improved. VS, I&O, 24H, Fishbone Vital Signs/I&O Vital Signs Date Time Temp Pulse Resp B/P (MAP) Pulse Ox O2 Delivery O2 Flow Rate FiO2 02/08/21 18:18 20 02/08/21 17:55 98.0 108 149/65 (93) 100 Room Air 02/08/21 16:50 10.0 I&O- Last 24 Hours up to 6 AM 02/08/21 06:00 Intake Total 430 ml Balance 430 ml Laboratory Data 24H LABS Laboratory Tests 2 02/07/21 18:25: Blood Gas Bicarbonate Standard 24.0, Venous Blood pH 7.433H, Venous Blood Partial Pressure CO2 35.6L, Venous Blood Partial Pressure O2 72.7H, Venous Blood Total Carbon Dioxide 24.4, Venous Blood HCO3 23.3, Venous Blood Oxygen Saturation 95.7H, Venous Blood Base Excess -0.5, Coronavirus (COVID-19)(PCR) NEGATIVE, Influenza Type A (RT-PCR) NEGATIVE, Influenza Type B (RT-PCR) NEGATIVE, Respiratory Syncytial Virus (PCR) NEGATIVE 02/07/21 19:44: Urine Color YELLOW, Urine Appearance CLEAR, Urine pH 8.0, Urine Specific [place] 1.011, Urine Protein NEGATIVE, Urine Glucose (Auto)(UA) NEGATIVE, Urine Ketones (Auto) NEGATIVE, Urine Blood NEGATIVE, Urine Nitrite NEGATIVE, Urine Bilirubin NEGATIVE, Urine Urobilinogen 4.0H, Urine Leukocyte Esterase (Auto) NEGATIVE, Urine WBC (Auto) 0, Urine RBC (Auto) 2, Urine Hyaline Casts (Auto) 0, Urine Bacteria (Auto) NEGATIVE, Urine Squamous Epithelial Cells 2, Urine Sperm (Auto) 02/08/21 07:45: Hepatitis A IgM Antibody NEGATIVE, Hepatitis B Surface Antigen NEGATIVE, Hepatitis B Core IgM Antibody NEGATIVE, Hepatitis C Antibody Index 0.0 02/08/21 07:50: Nucleated Red Blood Cells % (auto) 0.0, Anion Gap 5L, Glomerular Filtration Rate > 60.0, Calcium Level 8.4L, Magnesium Level 1.9, Total Bilirubin 1.4H, Aspartate Amino Transf (AST/SGOT) 45H, Alanine Aminotransferase (ALT/SGPT) 49, Alkaline Phosphatase 183H, Total Protein 6.4, Albumin 2.9L, Albumin/Globulin Ratio 0.8L, Procalcitonin 0.27 02/08/21 17:01: Vancomycin Level Trough 9.8L CBC/BMP Laboratory Tests 02/08/21 07:50 Microbiology Microbiology 02/08/21 Catheter Tip Culture, Received Pending 02/07/21 Blood Culture, Received Pending 02/07/21 Blood Culture, Received Pending 02/07/21 Urine Culture, Received Pending 02/07/21 Blood Culture, Received Pending 02/07/21 Blood Culture - Preliminary, Resulted No growth after 24 hours . All specim... Current Medications Current Medications Medications (Trade) Dose Ordered Sig/Isidro Route PRN Reason Start Time Stop Time Status Last Admin Dose Admin Albuterol Sulfate (Proventil Neb) 2.5 mg Q4H PRN INH SHORTNESS OF BREATH 02/07/21 21:00 Diphenhydramine HCl (Benadryl) 50 mg BID PRN IV SEVERE NAUSEA 02/07/21 21:00 02/08/21 03:12 Enoxaparin Sodium (Lovenox) 40 mg DAILY SC 02/08/21 09:00 Fentanyl Citrate (Sublimaze) 25 mcg Q5MP PRN IV PAIN LEVEL 5-10 02/08/21 17:05 02/08/21 18:05 DC Fluoxetine HCl (PROzac) 20 mg DAILY GT 02/08/21 09:00 02/08/21 08:24 Home Med (Med Rec Complete!) ASDIRECTED XX 02/07/21 18:35 02/07/21 18:33 DC Lactated Ringer's 1,000 ml @ 75 mls/hr [id number] IV 02/08/21 17:05 02/08/21 18:05 DC 02/08/21 16:50 Morphine Sulfate (Morphine Sulfate Inj) 2 mg Q2H PRN IV BREAKTHROUGH PAIN 02/07/21 21:00 02/08/21 18:18 Multivitamins (M.v.i.-Adult) 10 ml DAILY IV 02/08/21 09:00 02/07/21 21:27 DC Multivitamins 10 ml/Sodium Chloride 1,010 ml @ 250 mls/hr DAILY IV 02/08/21 09:00 02/08/21 16:36 DC 02/08/21 11:50 Multivitamins 10 ml/Sodium Chloride 1,010 ml @ 250 mls/hr Q24H IV 02/08/21 16:36 02/08/21 16:37 DC Multivitamins 10 ml/Sodium Chloride 1,010 ml @ 250 mls/hr Q24H IV 02/09/21 12:00 Pantoprazole Sodium (Protonix) 40 mg BID IV 02/07/21 21:00 02/08/21 08:25 Piperacillin Sod/ Tazobactam Sod 4.5 gm/Dextrose 50 ml @ 50 mls/hr Q6H IV 02/08/21 03:00 02/08/21 08:27 Sodium Chloride 1,000 ml @ 125 mls/hr Q8H IV 02/08/21 12:30 02/08/21 18:24 Sodium Chloride (Nacl 0.9%) 1,000 ml BOLUS IV 02/07/21 21:00 02/07/21 21:15 DC 02/07/21 23:56 Vancomycin HCl 500 mg/Dextrose 110 ml @ 110 mls/hr Q8H IV 02/08/21 19:00 Vancomycin HCl 750 mg/IV Miscellaneous Supplies 1 each/ Sodium Chloride 275 ml @ 275 mls/hr Q8H IV 02/08/21 18:00 02/08/21 18:23 Vancomycin HCl 1000 mg/IV Miscellaneous Supplies 1 each/ Sodium Chloride 270 ml @ 270 mls/hr Q8H IV 02/08/21 02:00 02/08/21 18:08 DC 02/08/21 09:40 Zolpidem Tartrate (Ambien) 10 mg QHSP PRN PO INSOMNIA 02/08/21 01:25 02/08/21 03:17 Allergies Coded Allergies: Sulfa (Sulfonamide Antibiotics) (Verified Allergy, Severe, RESP. PROBLEMS, SWELLING, HIVES, 06/28/20) butorphanol (Verified Allergy, Severe, HIVES/RESP. PROBLEMS (PERCOCET AND TYL#3 OK), 06/28/20) HAS HAD MORPHINE AND DILAUDID IN THE PAST levofloxacin (Verified Allergy, Severe, THROAT SWELLING/HIVES, 06/28/20) tomato (Verified Allergy, Severe, RESP. PROBLEMS, HIVES, 06/28/20) tramadol (Verified Allergy, Severe, SOB - HAS HAD MORPHINE AND DILAUDID IN THE PAST, 06/28/20) scopolamine (Verified Adverse Reaction, Intermediate, VISION LOSS, 06/28/20) NSAIDS (Non-Steroidal Anti-Inflamma (Verified Adverse Reaction, Mild, GASTRIC BYPASS, 06/28/20) Tawnya French MD Feb 08, 2021 18:41
[2021-02-08] MEDS ORDERED: ALBUTEROL 90 MCG/ACT 8GM HFA INHALER INH PRN (18:45)
[2021-02-08] MEDS ORDERED: MORPHINE 2 MG/ML 1ML VIAL (J2270) IV PRN (18:45)
[2021-02-08] MEDS: VANCOMYCIN HCL 500 MG in D5W MINI-BAG PLUS 100 ML IV SCH (19:56)
[2021-02-08 20:00] VITALS: BP 105/58
[2021-02-08] MEDS: levETIRAcetam 250MG TABLET (KEPPRA) GT SCH (20:57)
[2021-02-09] VITALS (7 sets, daily range): BP systolic 88–116; BP diastolic 48–68
[2021-02-09] MEDS: MORPHINE 2 MG/ML 1ML VIAL (J2270) IV PRN ×3 (01:31→14:22)
[2021-02-09] MEDS: VANCOMYCIN HCL 750 MG, VIAL MATE ADAPTER 1 EACH in NS 250 ML IV SCH ×3 (02:16→17:17)
[2021-02-09] MEDS: VANCOMYCIN HCL 500 MG in D5W MINI-BAG PLUS 100 ML IV SCH ×3 (03:35→18:27)
[2021-02-09] MEDS: PIPERACILLIN/TAZOBACTAM SOD 4.5 GM in D5W MINI-BAG PLUS 50 ML IV SCH ×4 (03:39→20:51)
[2021-02-09 06:08] LABS: HEMATOCRIT 32.5 % (36.0-47.0); MEAN CORPUSCULAR HEMOGLOBIN 28.4 pg (27.0-33.0); MEAN CORPUSCULAR HGB CONC 30.8 g/dl (32.0-36.5); MEAN CORPUSCULAR VOLUME 92.3 fl (80.0-96.0); PLATELET COUNT, AUTOMATED 202 10^3/uL (150-450); RED BLOOD COUNT 3.52 10^6/uL (4.00-5.40)
[2021-02-09 06:37] LABS: ALBUMIN 2.7 GM/DL (3.2-5.2); ALT/SGPT 56 U/L (12-78); BILIRUBIN,TOTAL 0.9 MG/DL (0.2-1.0); BLOOD UREA NITROGEN 5 MG/DL (7-18); CALCIUM LEVEL 8.2 MG/DL (8.5-10.1); CARBON DIOXIDE LEVEL 27 MEQ/L (21-32); CHLORIDE LEVEL 110 MEQ/L (98-107); CREATININE FOR GFR 0.52 MG/DL (0.55-1.30); GLOMERULAR FILTRATION RATE > 60.0 (>58); GLUCOSE, FASTING 126 MG/DL (70-100); POTASSIUM SERUM 3.7 MEQ/L (3.5-5.1); SODIUM LEVEL 142 MEQ/L (136-145); TOTAL PROTEIN 5.7 GM/DL (6.4-8.2)
[2021-02-09] MEDS: NS 1,000 ML IV SCH ×2 (07:15→17:16)
[2021-02-09] MEDS: ENOXAPARIN 40MG/0.4ML SYRINGE (J1650 PER 10MG) SC SCH (09:00)
[2021-02-09] MEDS: levETIRAcetam 250MG TABLET (KEPPRA) GT SCH ×2 (09:53→20:52)
[2021-02-09] MEDS: FLUoxetine 20 MG CAP GT SCH (09:53)
[2021-02-09] MEDS: PANTOPRAZOLE 40MG VIAL (C9113 PER 1) IV SCH ×2 (09:53→20:49)
[2021-02-09] MEDS ORDERED: MULTIVITAMIN -ADULT INJECTION 10 ML in NS 1,000 ML IV SCH (12:00)
--- NOTE | 2021-02-09 12:36 | ECGEPIP ---
[facility] - ED Test Date: 2021-02-07 Pat Name: NI RICHMOND Department: Room: [place] [address] Gender: Female Account Resolution Analyst: neema : [id number] Requested By: ROHAN DALEY Order Number: [id number] Reading MD: Charmaine Hill Measurements Intervals [place] Rate: 122 P: 58 UT: 120 QRS: 63 QRSD: 68 T: 30 QT: 320 QTc: 456 Interpretive Statements Sinus tachycardia NSTTW abnormalities decreased rate 11/22/20 Electronically Signed on 02-09-2021 12:35:39 EDT by Charmaine Hill
--- NOTE | 2021-02-09 14:36 | IPNPDOC ---
Date Seen The patient was seen on 02/09/21. Progress Note SUBJECTIVE: Afebrile, Cath tip cx pending. BCx NG. Patient's family to bring in home TPN to restart. If cannot, discussed with pharmacy and nutrition and can use ours. Cellulitis appears to be improving. Denies increased SOB, n/v/d. OBJECTIVE: PHYSICAL EXAMINATION: VITAL SIGNS: Please see below GENERAL APPEARANCE: NAD, resting in bed HEENT: NC/AT. EOMI. PERRLA. Conjunctiva and lids normal. No scleral icterus. CARDIOVASCULAR: Tachycardic. Regular rhythm. No murmurs, rubs, or gallops a ppreciated. LUNGS: Lungs clear to auscultation. No wheezes, rales, or rhonchi appreciated. CHEST WALL: Prior Galicia cath site appears clean, nonsuppurative, decreased erythema and warmth around it. Still tenderness to palpation. ABDOMEN: Abd soft. Tenderness around J tube. J tube has an area of erythema around it EXTREMITIES: No pitting edema to BLE. NEUROLOGICAL: CN 2-12 intact, no focal deficits LABORATORY DATA: Please see below IMAGING: Chest x-ray (02/07/21) No acute cardiopulmonary process appreciated per Dr. Michael James. Thyroid US (02/07/21) Small amount of subcutaneous fluid surrounds the port which should be correlated clinically. Otherwise unremarkable directed ultrasound per Dr. Michael James. Liver US: 1. Hepatic steatosis. 2. Dilated common biliary duct measuring 10 mm, previously 12 mm. Presumably related to prior cholecystectomy and physiologic. MICROBIOLOGY: Galicia catheter tip Cx: pending results Blood cultures: NG to date UA: neg ASSESSMENT: is a 41 year old female with a past medical hx of severe gastroparesis on chronic TPN use and J tube for feeding/meds, Galicia catheter in place, chronic abd pain, malabsorption, short gut syndrome, GERD, depression, anxiety who presents to the ED with complains of abd pain, neck pain around her port site, L eye pain & blurry vision; she will be admitted for management of sepsis likely 2/2 cellulitis w Galicia catheter infection. PLAN: Left chest cellulitis likely 2/2 to Galicia catheter infection-resolved sepsis -Afebrile, tachycardia resolved, WBC wnl, LA wnl -S/p Galicia catheter removal by IR 02/08/21 -PICC placed in RUE 02/08/21 -F/u cath tip -C/w zosyn, vancomycin, tylenol PRN, pain control with home meds -On admission case was discussed with Dr. Orozco, ID. She reports that pt has not had hx of angelica in previous cultures as she is on TPN. Will hold off on fungal coverage until port cultures have returned. Severe gastroparesis with malabsorption, on daily TPN. Hx of short gut syndrome, chronic n/v -Discussed at great length TPN regimen for patient between pharmacy and dietary -Plan is for family to bring in home TPN to restart. if family cannot, we can start our own here. -Per Dr. Gomez, no longer candidate for tunnelled catheters (i.e. Galicia's, multiple infections with tunnelled catheters), will need to keep PICC. -Regular diet for now -Zofran PRN, stopped IVFs Elevated liver enzymes possibly 2/2 to hepatic steatosis -AST slightly inr -No abdominal pain -WNL at bl -Hepatitis neg -Liver US above -CMP daily Pseudoseizures -No seizures since admission -Pt mother reports that pt has hx of these pseudoseizures and she follows neurology in regards to this. -seizure precautions. -monitor, follow up with her neurologist outpatient. Depression/anxiety -Denies HI/SI -C/w home meds Chronic iron deficiency anemia requiring transfusions, iron infusions -H/H near baseline -Daily CBC -F/u with Heme/onc o/p Chronic back and abdominal pain -Holding home PO meds -C/w home pain meds Protein S deficiency -Per patient, she is NO LONGER on lovenox BID because of history of GI bleed. She states she was told to weight risk vs. benefit and opted not to continue. -Will keep only prophylactic lovenox dosing at this time. Hx of recurrent GI bleed -Follows with heme/onc for this and protein S deficiency, hx of clots -No s/s of bleeding currently -Not on therapeutic dosing per patient any longer GERD -C/w PPI BID DVT px -Lovenox. Was previously on BID dosing, will verify to see if this is still needed. Resolved issues: L eye pain DISPOSITION: C/w treatment above. Plan is d/c home when medically improved. VS, I&O, 24H, Fishbone Vital Signs/I&O Vital Signs Date Time Temp Pulse Resp B/P (MAP) Pulse Ox O2 Delivery O2 Flow Rate FiO2 02/09/21 14:22 18 02/09/21 11:51 98.0 98 116/59 (78) 97 Room Air 02/08/21 16:50 10.0 I&O- Last 24 Hours up to 6 AM 02/09/21 06:00 Intake Total 2175 ml Balance 2175 ml Laboratory Data 24H LABS Laboratory Tests 2 02/08/21 17:01: Vancomycin Level Trough 9.8L 02/09/21 05:40: Nucleated Red Blood Cells % (auto) 0.0, Anion Gap 5L, Glomerular Filtration Rate > 60.0, Calcium Level 8.2L, Magnesium Level 2.0, Total Bilirubin 0.9, Aspartate Amino Transf (AST/SGOT) 52H, Alanine Aminotransferase (ALT/SGPT) 56, Alkaline Phosphatase 204H, Total Protein 5.7L, Albumin 2.7L, Albumin/Globulin Ratio 0.9L 02/09/21 12:38: Methicillin-Resist S.aureus DNA PCR NOT DETECTED CBC/BMP Laboratory Tests 02/09/21 05:40 Microbiology Microbiology 02/08/21 Catheter Tip Culture, Received Pending 02/07/21 Blood Culture - Preliminary, Resulted No growth after 24 hours . All specim... 02/07/21 Blood Culture - Preliminary, Resulted No growth after 24 hours . All specim... 02/07/21 Urine Culture, Received Pending 02/07/21 Blood Culture - Preliminary, Resulted No growth after 24 hours . All specim... 02/07/21 Blood Culture - Preliminary, Resulted No growth after 24 hours . All specim... Current Medications Current Medications Medications (Trade) Dose Ordered Sig/Isidro Route PRN Reason Start Time Stop Time Status Last Admin Dose Admin Albuterol Sulfate (Proventil Neb) 2.5 mg Q4H PRN INH SHORTNESS OF BREATH 02/07/21 21:00 Albuterol Sulfate (Proventil, Ventolin Hfa) 2 puff Q6H PRN INH SHORTNESS OF BREATH 02/08/21 18:45 Diphenhydramine HCl (Benadryl) 50 mg BID PRN IV SEVERE NAUSEA 02/07/21 21:00 02/08/21 18:48 DC 02/08/21 03:12 Enoxaparin Sodium (Lovenox) 40 mg DAILY SC 02/08/21 09:00 Fentanyl Citrate (Sublimaze) 25 mcg Q5MP PRN IV PAIN LEVEL 5-10 02/08/21 17:05 02/08/21 18:05 DC Fluoxetine HCl (PROzac) 20 mg DAILY GT 02/08/21 09:00 02/09/21 09:53 Home Med (Med Rec Complete!) ASDIRECTED XX 02/07/21 18:35 02/07/21 18:33 DC Lactated Ringer's 1,000 ml @ 75 mls/hr [id number] IV 02/08/21 17:05 02/08/21 18:05 DC 02/08/21 16:50 Levetiracetam (Keppra) 500 mg BID GT 02/08/21 21:00 02/09/21 09:53 Morphine Sulfate (Morphine Sulfate Inj) 1 mg Q4HP PRN IV MODERATE/SEVERE PAIN (PS 5-10) 02/08/21 21:20 02/09/21 14:22 Morphine Sulfate (Morphine Sulfate Inj) 1 mg Q6HP PRN IV MODERATE/SEVERE PAIN (PS 5-10) 02/08/21 18:45 02/08/21 21:17 DC Morphine Sulfate (Morphine Sulfate Inj) 2 mg Q2H PRN IV BREAKTHROUGH PAIN 02/07/21 21:00 02/08/21 18:48 DC 02/08/21 18:18 Multivitamins (M.v.i.-Adult) 10 ml DAILY IV 02/08/21 09:00 02/07/21 21:27 DC Multivitamins 10 ml/Sodium Chloride 1,010 ml @ 250 mls/hr DAILY IV 02/08/21 09:00 02/08/21 16:36 DC 02/08/21 11:50 Multivitamins 10 ml/Sodium Chloride 1,010 ml @ 250 mls/hr Q24H IV 02/08/21 16:36 02/08/21 16:37 DC Multivitamins 10 ml/Sodium Chloride 1,010 ml @ 250 mls/hr Q24H IV 02/09/21 12:00 02/09/21 14:03 DC 02/09/21 13:26 Ondansetron HCl (Zofran) 4 mg BIDP PRN GT NAUSEA 02/08/21 18:45 Pantoprazole Sodium (Protonix) 40 mg BID IV 02/07/21 21:00 02/09/21 09:53 Piperacillin Sod/ Tazobactam Sod 4.5 gm/Dextrose 50 ml @ 50 mls/hr Q6H IV 02/08/21 03:00 02/09/21 14:14 Sodium Chloride 1,000 ml @ 125 mls/hr Q8H IV 02/08/21 12:30 02/09/21 07:49 DC 02/09/21 07:15 Sodium Chloride (Nacl 0.9%) 1,000 ml BOLUS IV 02/07/21 21:00 02/07/21 21:15 DC 02/07/21 23:56 Vancomycin HCl 500 mg/Dextrose 110 ml @ 110 mls/hr Q8H IV 02/08/21 19:00 02/09/21 12:29 Vancomycin HCl 750 mg/IV Miscellaneous Supplies 1 each/ Sodium Chloride 275 ml @ 275 mls/hr Q8H IV 02/08/21 18:00 02/09/21 09:52 Vancomycin HCl 1000 mg/IV Miscellaneous Supplies 1 each/ Sodium Chloride 270 ml @ 270 mls/hr Q8H IV 02/08/21 02:00 02/08/21 18:08 DC 02/08/21 09:40 Zolpidem Tartrate (Ambien) 10 mg QHSP PRN PO INSOMNIA 02/08/21 01:25 02/08/21 21:01 Allergies Coded Allergies: Sulfa (Sulfonamide Antibiotics) (Verified Allergy, Severe, RESP. PROBLEMS, SWELLING, HIVES, 06/28/20) butorphanol (Verified Allergy, Severe, HIVES/RESP. PROBLEMS (PERCOCET AND TYL#3 OK), 06/28/20) HAS HAD MORPHINE AND DILAUDID IN THE PAST levofloxacin (Verified Allergy, Severe, THROAT SWELLING/HIVES, 06/28/20) tomato (Verified Allergy, Severe, RESP. PROBLEMS, HIVES, 06/28/20) tramadol (Verified Allergy, Severe, SOB - HAS HAD MORPHINE AND DILAUDID IN THE PAST, 06/28/20) scopolamine (Verified Adverse Reaction, Intermediate, VISION LOSS, 06/28/20) NSAIDS (Non-Steroidal Anti-Inflamma (Verified Adverse Reaction, Mild, GASTRIC BYPASS, 06/28/20) Tawnya French MD Feb 09, 2021 14:36
[2021-02-09] MEDS ORDERED: FAT EMULSION IV 20% 500 ML IV SCH (18:00)
[2021-02-09] MEDS ORDERED: AMINO AC/ELECTROLYTE/DEX/CALC 2,000 ML IV SCH (18:00)
[2021-02-09] MEDS: oxyCODONE 5MG TAB GT PRN ×2 (18:28→22:57)
[2021-02-09] MEDS: zolPIDEM TARTRATE 5 MG TAB PO PRN (20:58)
[2021-02-09] MEDS ORDERED: LIPIDS IV SCH (22:10)
[2021-02-09] MEDS: LIPIDS IV SCH (23:03)
[2021-02-09] MEDS: TPN IV SCH (23:03)
[2021-02-10 00:05] VITALS: BP 102/58
[2021-02-10] MEDS: VANCOMYCIN HCL 750 MG, VIAL MATE ADAPTER 1 EACH in NS 250 ML IV SCH ×2 (02:26→09:49)
[2021-02-10] MEDS: VANCOMYCIN HCL 500 MG in D5W MINI-BAG PLUS 100 ML IV SCH ×2 (03:56→11:47)
[2021-02-10 04:00] VITALS: BP 99/55
[2021-02-10] MEDS: PIPERACILLIN/TAZOBACTAM SOD 4.5 GM in D5W MINI-BAG PLUS 50 ML IV SCH (05:16)
[2021-02-10 05:30] LABS: HEMATOCRIT 28.6 % (36.0-47.0); MEAN CORPUSCULAR HEMOGLOBIN 29.1 pg (27.0-33.0); MEAN CORPUSCULAR HGB CONC 31.5 g/dl (32.0-36.5); MEAN CORPUSCULAR VOLUME 92.6 fl (80.0-96.0); PLATELET COUNT, AUTOMATED 168 10^3/uL (150-450); RED BLOOD COUNT 3.09 10^6/uL (4.00-5.40); WHITE BLOOD COUNT 3.6 10^3/uL (4.0-10.0)
[2021-02-10 07:25] LABS: ALBUMIN 2.5 GM/DL (3.2-5.2); ALT/SGPT 60 U/L (12-78); BILIRUBIN,TOTAL 0.4 MG/DL (0.2-1.0); BLOOD UREA NITROGEN 6 MG/DL (7-18); CALCIUM LEVEL 8.3 MG/DL (8.5-10.1); CARBON DIOXIDE LEVEL 26 MEQ/L (21-32); CHLORIDE LEVEL 112 MEQ/L (98-107); CREATININE FOR GFR 0.53 MG/DL (0.55-1.30); GLOMERULAR FILTRATION RATE > 60.0 (>58); GLUCOSE, FASTING 202 MG/DL (70-100); MAGNESIUM LEVEL 2.1 MG/DL (1.8-2.4); POTASSIUM SERUM 3.8 MEQ/L (3.5-5.1); SODIUM LEVEL 142 MEQ/L (136-145); TOTAL PROTEIN 5.1 GM/DL (6.4-8.2)
[2021-02-10 08:00] VITALS: BP 125/68
[2021-02-10] MEDS: levETIRAcetam 250MG TABLET (KEPPRA) GT SCH ×2 (08:51→20:14)
[2021-02-10] MEDS: ENOXAPARIN 40MG/0.4ML SYRINGE (J1650 PER 10MG) SC SCH (08:51)
[2021-02-10] MEDS: ONDANSETRON 4 MG TAB GT PRN (08:51)
[2021-02-10] MEDS: PANTOPRAZOLE 40MG VIAL (C9113 PER 1) IV SCH ×2 (08:51→20:14)
[2021-02-10] MEDS: FLUoxetine 20 MG CAP GT SCH (08:51)
[2021-02-10] MEDS: oxyCODONE 5MG TAB GT PRN ×3 (09:49→23:19)
[2021-02-10] MEDS ORDERED: ISOVUE-370 76% 100ML VIAL As Ordered ONE (10:23)
--- NOTE | 2021-02-10 10:32 | IRPON ---
IR Postoperative Note Date Of Procedure: Feb 08, 2021 Time Of Procedure: 16:00 IR Postoperative Note IR Galicia catheter removal under fluoroscopy guidance. Clinical indication: Left sided Galicia catheter placed greater than 3 months ago. Use for daily TPN. Pain and drainage from tunnel site. Anesthesia: Anesthesia was performed by the anesthesia team. A risk compliance analyst radiograph demonstrates a left-sided Galicia catheter in appropriate position. A right-sided PICC line catheter is also noted. The Galicia site was prepped and draped in the usual sterile fashion. Lidocaine was used for local anesthesia. The catheter cuff was dissected out of the soft tissues using blunt dissection. The catheter was removed in it's entirety. Patient tolerated the procedure well, hemostasis achieved and a sterile dressing was applied to the site. Blood loss: Less than 5 mL. Complications: None. Impression: 1. Successful removal of Galicia catheter. Tip sent for culture. 2.. Patient with recurrent tunnel infections, is not a good candidate for long- term tunneled catheters. Suggest ongoing management with PICC lines. Cc KARSTEN Lui MD Feb 10, 2021 10:32
--- NOTE | 2021-02-10 11:41 | REP ---
INDICATION: tunnel infection staph aureu R/ Septic phlebitis IJ. COMPARISON: None. TECHNIQUE: Axial CT images with multiplanar reformations. FINDINGS: Oropharynx, nasopharynx, hypopharynx and larynx appear unremarkable. No evidence of abscess. No mass lesions or abnormal enhancement. Thyroid glands appear unremarkable. A central venous catheter enters on the right. There is a filling defect on the left, left internal jugular vein (image 56 series 301) that appears to descend to the level of the clavicle and cross to the superior vena cava to the level of the central venous catheter. Degenerative changes of the cervical spine without evidence of limiting canal or foraminal stenosis. Paranasal sinuses and mastoid air cells are clear. IMPRESSION: A central venous catheter (PICC) enters on the right. There is a filling defect on the left, presumably thrombus, is seen in the left internal jugular vein (image 56 series 301) that appears to descend to the level of the clavicle and cross to the superior vena cava to the level of the PICC line. Findings discussed with to Dr. Orozco at the time of interpretation. <Electronically signed by Marek Montiel > 02/10/21 [id number]
[2021-02-10] MEDS: NS 1,000 ML IV SCH (11:47)
[2021-02-10 12:00] VITALS: BP 96/54
--- NOTE | 2021-02-10 14:54 | IPNPDOC ---
Date Seen The patient was seen on 02/10/21. Progress Note SUBJECTIVE: Afebrile, Cath tip cx pending. BCx NG. Patient's family to bring in home TPN to restart. If cannot, discussed with pharmacy and nutrition and can use ours. Cellulitis appears to be improving. Denies increased SOB, n/v/d. OBJECTIVE: PHYSICAL EXAMINATION: VITAL SIGNS: Please see below GENERAL APPEARANCE: NAD, resting in bed HEENT: NC/AT. EOMI. PERRLA. Conjunctiva and lids normal. No scleral icterus. CARDIOVASCULAR: Tachycardic. Regular rhythm. No murmurs, rubs, or gallops a ppreciated. LUNGS: Lungs clear to auscultation. No wheezes, rales, or rhonchi appreciated. CHEST WALL: Prior Galicia cath site appears clean, nonsuppurative, decreased erythema and warmth around it. Still tenderness to palpation. ABDOMEN: Abd soft. Tenderness around J tube. J tube has an area of erythema around it EXTREMITIES: No pitting edema to BLE. NEUROLOGICAL: CN 2-12 intact, no focal deficits LABORATORY DATA: Please see below IMAGING: Chest x-ray (02/07/21) No acute cardiopulmonary process appreciated per Dr. Michael James. Thyroid US (02/07/21) Small amount of subcutaneous fluid surrounds the port which should be correlated clinically. Otherwise unremarkable directed ultrasound per Dr. Michael James. Liver US: 1. Hepatic steatosis. 2. Dilated common biliary duct measuring 10 mm, previously 12 mm. Presumably related to prior cholecystectomy and physiologic. MICROBIOLOGY: Galicia catheter tip Cx: pending results Blood cultures: NG to date UA: neg ASSESSMENT: is a 41 year old female with a past medical hx of severe gastroparesis on chronic TPN use and J tube for feeding/meds, Galicia catheter in place, chronic abd pain, malabsorption, short gut syndrome, GERD, depression, anxiety who presents to the ED with complains of abd pain, neck pain around her port site, L eye pain & blurry vision; she will be admitted for management of sepsis likely 2/2 cellulitis w Galicia catheter infection. PLAN: Left chest cellulitis likely 2/2 to Galicia catheter infection-resolved sepsis -Afebrile, tachycardia resolved, WBC wnl, LA wnl -S/p Galicia catheter removal by IR 02/08/21 -PICC placed in RUE 02/08/21 -F/u cath tip -C/w zosyn, vancomycin, tylenol PRN, pain control with home meds -On admission case was discussed with Dr. Orozco, ID. She reports that pt has not had hx of angelica in previous cultures as she is on TPN. Will hold off on fungal coverage until port cultures have returned. Severe gastroparesis with malabsorption, on daily TPN. Hx of short gut syndrome, chronic n/v -Discussed at great length TPN regimen for patient between pharmacy and dietary -Plan is for family to bring in home TPN to restart. if family cannot, we can start our own here. -Per Dr. Gomez, no longer candidate for tunnelled catheters (i.e. Galicia's, multiple infections with tunnelled catheters), will need to keep PICC. -Regular diet for now -Zofran PRN, stopped IVFs Elevated liver enzymes possibly 2/2 to hepatic steatosis -AST slightly inr -No abdominal pain -WNL at bl -Hepatitis neg -Liver US above -CMP daily Pseudoseizures -No seizures since admission -Pt mother reports that pt has hx of these pseudoseizures and she follows neurology in regards to this. -seizure precautions. -monitor, follow up with her neurologist outpatient. Depression/anxiety -Denies HI/SI -C/w home meds Chronic iron deficiency anemia requiring transfusions, iron infusions -H/H near baseline -Daily CBC -F/u with Heme/onc o/p Chronic back and abdominal pain -Holding home PO meds -C/w home pain meds Protein S deficiency -Per patient, she is NO LONGER on lovenox BID because of history of GI bleed. She states she was told to weight risk vs. benefit and opted not to continue. -Will keep only prophylactic lovenox dosing at this time. Hx of recurrent GI bleed -Follows with heme/onc for this and protein S deficiency, hx of clots -No s/s of bleeding currently -Not on therapeutic dosing per patient any longer GERD -C/w PPI BID DVT px -Lovenox. Was previously on BID dosing, will verify to see if this is still needed. Resolved issues: L eye pain DISPOSITION: C/w treatment above. Plan is d/c home when medically improved. VS, I&O, 24H, Fishbone Vital Signs/I&O Vital Signs Date Time Temp Pulse Resp B/P (MAP) Pulse Ox O2 Delivery O2 Flow Rate FiO2 02/10/21 12:00 97.7 90 18 96/54 (68) 90 Room Air 02/08/21 16:50 10.0 I&O- Last 24 Hours up to 6 AM 02/10/21 06:00 Intake Total 4163 ml Output Total 600 ml Balance 3563 ml Laboratory Data 24H LABS Laboratory Tests 2 02/09/21 17:03: Vancomycin Level Trough 20.0 02/10/21 04:52: Nucleated Red Blood Cells % (auto) 0.0, Anion Gap 4L, Glomerular Filtration Rate > 60.0, Calcium Level 8.3L, Magnesium Level 2.1, Total Bilirubin 0.4#, Aspartate Amino Transf (AST/SGOT) 50H, Alanine Aminotransferase (ALT/SGPT) 60, Alkaline Phosphatase 181H, Total Protein 5.1L, Albumin 2.5L, Albumin/Globulin Ratio 1.0L 02/10/21 09:08: Vancomycin Level Trough 19.2 CBC/BMP Laboratory Tests 02/10/21 04:52 Microbiology Microbiology 02/08/21 Catheter Tip Culture - Final, Complete Staphylococcus Aureus 02/07/21 Blood Culture - Preliminary, Resulted No Growth after 48 hours. All Specime... 02/07/21 Blood Culture - Preliminary, Resulted No Growth after 48 hours. All Specime... 02/07/21 Urine Culture - Preliminary, Resulted Strep Agalactiae Group B Lactobacillus Species 02/07/21 Blood Culture - Preliminary, Resulted No Growth after 48 hours. All Specime... 02/07/21 Blood Culture - Preliminary, Resulted No Growth after 48 hours. All Specime... Tawnya French MD Feb 10, 2021 14:54
--- NOTE | 2021-02-10 15:28 | IPNPDOC ---
Date Seen The patient was seen on 02/10/21. Progress Note SUBJECTIVE: Cath tip growing MSSA, ID consulted and will likely change choice of IV abx. Call out to Dr. Paulie Escamilla (patient's Heme/onc specialist in [place]) as to how approach left IJ thrombus with recent GI bleed and being taken off lovenox BID earlier this year. Denies increased SOB, n/v/d. OBJECTIVE: PHYSICAL EXAMINATION: VITAL SIGNS: Please see below GENERAL APPEARANCE: NAD, resting in bed HEENT: NC/AT. EOMI. PERRLA. Conjunctiva and lids normal. No scleral icterus. CARDIOVASCULAR: Tachycardic. Regular rhythm. No murmurs, rubs, or gallops appreciated. LUNGS: Lungs clear to auscultation. No wheezes, rales, or rhonchi appreciated. CHEST WALL: Prior Galicia cath site slightly suppurative, tender to touch, tenderness extends up left neck with erythema and warmth around it. ABDOMEN: Abd soft. Tenderness around J tube. J tube has an area of erythema around it EXTREMITIES: No pitting edema to BLE. NEUROLOGICAL: CN 2-12 intact, no focal deficits LABORATORY DATA: Please see below IMAGING: CT neck with contrast 02/10/21: A central venous catheter (PICC) enters on the right. There is a filling defect on the left, presumably thrombus, is seen in the left internal jugular vein (image 56 series [id number]) that appears to descend to the level of the clavicle and cross to the superior vena cava to the level of the PICC line. Chest x-ray (02/07/21) No acute cardiopulmonary process appreciated per Dr. Michael James. Thyroid US (02/07/21) Small amount of subcutaneous fluid surrounds the port which should be correlated clinically. Otherwise unremarkable directed ultrasound per Dr. Michael James. Liver US: 1. Hepatic steatosis. 2. Dilated common biliary duct measuring 10 mm, previously 12 mm. Presumably related to prior cholecystectomy and physiologic. MICROBIOLOGY: Galicia catheter tip Cx: pending results Blood cultures: NG to date UA: neg ASSESSMENT: is a 41 year old female with a past medical hx of severe gume roparesis on chronic TPN use and J tube for feeding/meds, Galicia catheter in place, chronic abd pain, malabsorption, short gut syndrome, GERD, depression, anxiety who presents to the ED with complains of abd pain, neck pain around her port site, L eye pain & blurry vision; she will be admitted for management of sepsis likely 2/2 cellulitis w Galicia catheter infection. PLAN: Left IJ thrombus descending to level of clavicle -Recent hx of hospitalization for GI bleed, which reoccurred same hos pitalization when attempted to start back on lovenox BID in 11/2019 [facility] -CT neck above -Tenderness, warmth may be from this thrombus as well -Call placed to Dr. Paulie Escamilla (patient's postpartum rn in [place], ) to further discuss, as she followed up with him after her hospitalization and is familiar with her complicated hypercoagulable state. -Risks/benefits discussed with patient and she is opting to try MSSA left chest cellulitis 2/2 to Galicia catheter infection-resolved sepsis -Afebrile, WBC wnl, LA wnl -Tenderness and warmth persist with some purulence at site where Galicia was removed -S/p Galicia catheter removal by IR 02/08/21 -PICC placed in RUE 02/08/21 -Cath tip: MSSA -C/w vancomycin for now- will likely change IV choice per ID , tylenol PRN, pain control with home meds -ID consulted Strep agalactiae, lactobacillus UTI -On Vancomycin (Day 3) -Will likely need 3-5 day treatment course Chronic iron deficiency anemia requiring transfusions, iron infusions likely complicated by recent GI bleed ([facility]) -H/H decreased since admission being on enoxaparin SC for DVT, currently Hgb 9 -Admission Hgb 13 -F/u occult blood today -Request most recent records from hospital stay with GI bleed from [facility] today, have call out to heme/onc provider to return -Daily CBC Severe gastroparesis with malabsorption, on daily TPN. Hx of short gut syndrome, chronic n/v -Home TPN restarted. -Per Dr. Gomez, no longer candidate for tunnelled catheters (i.e. Galicia's, multiple infections with tunnelled catheters), will need to keep PICC, PFS aware. -Regular diet also on -Zofran PRN Elevated liver enzymes possibly 2/2 to hepatic steatosis -AST slightly inr -No abdominal pain -WNL at bl -Hepatitis neg -Liver US above -CMP daily Pseudoseizures -No seizures since admission -Pt mother reports that pt has hx of these pseudoseizures and she follows neurology in regards to this. -seizure precautions. -monitor, follow up with her neurologist outpatient. Depression/anxiety -Denies HI/SI -C/w home meds Chronic back and abdominal pain -Holding home PO meds -C/w home pain meds Protein S deficiency /Hx of clots in past -Clot suspected now -Per patient, she is NO LONGER on lovenox BID because of history of GI bleed. She states she was told to weight risk vs. benefit and opted not to continue -Was on prophylactic lovenox here, stopped due to decreasing H/H -SCDs only GERD -C/w PPI BID DVT px -SCD, teds Resolved issues: L eye pain DISPOSITION: C/w treatment above. Plan is d/c home when medically improved. VS, I&O, 24H, Fishbone Vital Signs/I&O Vital Signs Date Time Temp Pulse Resp B/P (MAP) Pulse Ox O2 Delivery O2 Flow Rate FiO2 02/10/21 12:00 97.7 90 18 96/54 (68) 90 Room Air 02/08/21 16:50 10.0 I&O- Last 24 Hours up to 6 AM 02/10/21 06:00 Intake Total 4163 ml Output Total 600 ml Balance 3563 ml Laboratory Data 24H LABS Laboratory Tests 2 02/09/21 17:03: Vancomycin Level Trough 20.0 02/10/21 04:52: Nucleated Red Blood Cells % (auto) 0.0, Anion Gap 4L, Glomerular Filtration Rate > 60.0, Calcium Level 8.3L, Magnesium Level 2.1, Total Bilirubin 0.4#, Aspartate Amino Transf (AST/SGOT) 50H, Alanine Aminotransferase (ALT/SGPT) 60, Alkaline Phosphatase 181H, Total Protein 5.1L, Albumin 2.5L, Albumin/Globulin Ratio 1.0L 02/10/21 09:08: Vancomycin Level Trough 19.2 CBC/BMP Laboratory Tests 02/10/21 04:52 Microbiology Microbiology 02/08/21 Catheter Tip Culture - Final, Complete Staphylococcus Aureus 02/07/21 Blood Culture - Preliminary, Resulted No Growth after 48 hours. All Specime... 02/07/21 Blood Culture - Preliminary, Resulted No Growth after 48 hours. All Specime... 02/07/21 Urine Culture - Preliminary, Resulted Strep Agalactiae Group B Lactobacillus Species 02/07/21 Blood Culture - Preliminary, Resulted No Growth after 48 hours. All Specime... 02/07/21 Blood Culture - Preliminary, Resulted No Growth after 48 hours. All Specime... Current Medications Current Medications Medications (Trade) Dose Ordered Sig/Isidro Route PRN Reason Start Time Stop Time Status Last Admin Dose Admin Albuterol Sulfate (Proventil Neb) 2.5 mg Q4H PRN INH SHORTNESS OF BREATH 02/07/21 21:00 Albuterol Sulfate (Proventil, Ventolin Hfa) 2 puff Q6H PRN INH SHORTNESS OF BREATH 02/08/21 18:45 Amino Ac/Electrol/ Dextrose/Calcium 2,000 ml @ 60 mls/hr ONCE@1800 IV 02/09/21 18:00 02/09/21 22:17 DC Diphenhydramine HCl (Benadryl) 50 mg BID PRN IV SEVERE NAUSEA 02/07/21 21:00 02/08/21 18:48 DC 02/08/21 03:12 Enoxaparin Sodium (Lovenox) 40 mg DAILY SC 02/08/21 09:00 Fat Emulsion Intravenous 500 ml @ 7.5 mls/hr ONCE@1800 IV 02/09/21 18:00 02/09/21 22:17 DC Fentanyl Citrate (Sublimaze) 25 mcg Q5MP PRN IV PAIN LEVEL 5-10 02/08/21 17:05 02/08/21 18:05 DC Fluoxetine HCl (PROzac) 20 mg DAILY GT 02/08/21 09:00 02/10/21 08:51 Home Med (Med Rec Complete!) ASDIRECTED XX 02/07/21 18:35 02/07/21 18:33 DC Lactated Ringer's 1,000 ml @ 75 mls/hr [id number] IV 02/08/21 17:05 02/08/21 18:05 DC 02/08/21 16:50 Levetiracetam (Keppra) 500 mg BID GT 02/08/21 21:00 02/10/21 08:51 Morphine Sulfate (Morphine Sulfate Inj) 1 mg Q4HP PRN IV MODERATE/SEVERE PAIN (PS 5-10) 02/08/21 21:20 02/09/21 18:12 DC 02/09/21 14:22 Morphine Sulfate (Morphine Sulfate Inj) 1 mg Q6HP PRN IV MODERATE/SEVERE PAIN (PS 5-10) 02/08/21 18:45 02/08/21 21:17 DC Morphine Sulfate (Morphine Sulfate Inj) 2 mg Q2H PRN IV BREAKTHROUGH PAIN 02/07/21 21:00 02/08/21 18:48 DC 02/08/21 18:18 Multivitamins (M.v.i.-Adult) 10 ml DAILY IV 02/08/21 09:00 02/07/21 21:27 DC Multivitamins 10 ml/Sodium Chloride 1,010 ml @ 250 mls/hr DAILY IV 02/08/21 09:00 02/08/21 16:36 DC 02/08/21 11:50 Multivitamins 10 ml/Sodium Chloride 1,010 ml @ 250 mls/hr Q24H IV 02/08/21 16:36 02/08/21 16:37 DC Multivitamins 10 ml/Sodium Chloride 1,010 ml @ 250 mls/hr Q24H IV 02/09/21 12:00 02/09/21 14:03 DC 02/09/21 13:26 Ondansetron HCl (Zofran) 4 mg BIDP PRN GT NAUSEA 02/08/21 18:45 02/10/21 08:51 Oxycodone HCl (Roxicodone, Oxyir) 40 mg Q4HP PRN GT SEVERE PAIN (PS 8-10) 02/09/21 18:10 02/10/21 09:49 Pantoprazole Sodium (Protonix) 40 mg BID IV 02/07/21 21:00 02/10/21 08:51 Patient Own Medication (Patient'S Own Med) OWN TPN AND LIPIDS ASDIRECTED IV 02/09/21 22:15 02/10/21 22:14 02/09/21 23:03 Patient Own Medication (Patient'S Own Med) OWN TPN AND LIPIDS DAILY@1800 IV 02/09/21 22:10 02/09/21 22:11 DC Piperacillin Sod/ Tazobactam Sod 4.5 gm/Dextrose 50 ml @ 50 mls/hr Q6H IV 02/08/21 03:00 02/10/21 08:43 DC 02/10/21 05:16 Sodium Chloride 1,000 ml @ 125 mls/hr Q8H IV 02/08/21 12:30 02/09/21 07:49 DC 02/09/21 07:15 Sodium Chloride 1,000 ml @ 125 mls/hr Q8H IV 02/09/21 16:45 02/10/21 11:47 Sodium Chloride (Nacl 0.9%) 1,000 ml BOLUS IV 02/07/21 21:00 02/07/21 21:15 DC 02/07/21 23:56 Vancomycin HCl 500 mg/Dextrose 110 ml @ 110 mls/hr Q8H IV 02/08/21 19:00 02/10/21 11:47 Vancomycin HCl 750 mg/IV Miscellaneous Supplies 1 each/ Sodium Chloride 275 ml @ 275 mls/hr Q8H IV 02/08/21 18:00 02/10/21 09:49 Vancomycin HCl 1000 mg/IV Miscellaneous Supplies 1 each/ Sodium Chloride 270 ml @ 270 mls/hr Q8H IV 02/08/21 02:00 02/08/21 18:08 DC 02/08/21 09:40 Zolpidem Tartrate (Ambien) 10 mg QHSP PRN PO INSOMNIA 02/08/21 01:25 02/09/21 20:58 Allergies Coded Allergies: Sulfa (Sulfonamide Antibiotics) (Verified Allergy, Severe, RESP. PROBLEMS, SWELLING, HIVES, 06/28/20) butorphanol (Verified Allergy, Severe, HIVES/RESP. PROBLEMS (PERCOCET AND TYL#3 OK), 06/28/20) HAS HAD MORPHINE AND DILAUDID IN THE PAST levofloxacin (Verified Allergy, Severe, THROAT SWELLING/HIVES, 06/28/20) tomato (Verified Allergy, Severe, RESP. PROBLEMS, HIVES, 06/28/20) tramadol (Verified Allergy, Severe, SOB - HAS HAD MORPHINE AND DILAUDID IN THE PAST, 06/28/20) scopolamine (Verified Adverse Reaction, Intermediate, VISION LOSS, 06/28/20) NSAIDS (Non-Steroidal Anti-Inflamma (Verified Adverse Reaction, Mild, GASTRIC BYPASS, 06/28/20) Current Medications Current Medications Medications (Trade) Dose Ordered Sig/Isidro Route PRN Reason Start Time Stop Time Status Last Admin Dose Admin Albuterol Sulfate (Proventil Neb) 2.5 mg Q4H PRN INH SHORTNESS OF BREATH 02/07/21 21:00 Albuterol Sulfate (Proventil, Ventolin Hfa) 2 puff Q6H PRN INH SHORTNESS OF BREATH 02/08/21 18:45 Amino Ac/Electrol/ Dextrose/Calcium 2,000 ml @ 60 mls/hr ONCE@1800 IV 02/09/21 18:00 02/09/21 22:17 DC Diphenhydramine HCl (Benadryl) 50 mg BID PRN IV SEVERE NAUSEA 02/07/21 21:00 02/08/21 18:48 DC 02/08/21 03:12 Enoxaparin Sodium (Lovenox) 40 mg DAILY SC 02/08/21 09:00 Fat Emulsion Intravenous 500 ml @ 7.5 mls/hr ONCE@1800 IV 02/09/21 18:00 02/09/21 22:17 DC Fentanyl Citrate (Sublimaze) 25 mcg Q5MP PRN IV PAIN LEVEL 5-10 02/08/21 17:05 02/08/21 18:05 DC Fluoxetine HCl (PROzac) 20 mg DAILY GT 02/08/21 09:00 02/10/21 08:51 Home Med (Med Rec Complete!) ASDIRECTED XX 02/07/21 18:35 02/07/21 18:33 DC Lactated Ringer's 1,000 ml @ 75 mls/hr [id number] IV 02/08/21 17:05 02/08/21 18:05 DC 02/08/21 16:50 Levetiracetam (Keppra) 500 mg BID GT 02/08/21 21:00 02/10/21 08:51 Morphine Sulfate (Morphine Sulfate Inj) 1 mg Q4HP PRN IV MODERATE/SEVERE PAIN (PS 5-10) 02/08/21 21:20 02/09/21 18:12 DC 02/09/21 14:22 Morphine Sulfate (Morphine Sulfate Inj) 1 mg Q6HP PRN IV MODERATE/SEVERE PAIN (PS 5-10) 02/08/21 18:45 02/08/21 21:17 DC Morphine Sulfate (Morphine Sulfate Inj) 2 mg Q2H PRN IV BREAKTHROUGH PAIN 02/07/21 21:00 02/08/21 18:48 DC 02/08/21 18:18 Multivitamins (M.v.i.-Adult) 10 ml DAILY IV 02/08/21 09:00 02/07/21 21:27 DC Multivitamins 10 ml/Sodium Chloride 1,010 ml @ 250 mls/hr DAILY IV 02/08/21 09:00 02/08/21 16:36 DC 02/08/21 11:50 Multivitamins 10 ml/Sodium Chloride 1,010 ml @ 250 mls/hr Q24H IV 02/08/21 16:36 02/08/21 16:37 DC Multivitamins 10 ml/Sodium Chloride 1,010 ml @ 250 mls/hr Q24H IV 02/09/21 12:00 02/09/21 14:03 DC 02/09/21 13:26 Ondansetron HCl (Zofran) 4 mg BIDP PRN GT NAUSEA 02/08/21 18:45 02/10/21 08:51 Oxycodone HCl (Roxicodone, Oxyir) 40 mg Q4HP PRN GT SEVERE PAIN (PS 8-10) 02/09/21 18:10 02/10/21 09:49 Pantoprazole Sodium (Protonix) 40 mg BID IV 02/07/21 21:00 02/10/21 08:51 Patient Own Medication (Patient'S Own Med) OWN TPN AND LIPIDS ASDIRECTED IV 02/09/21 22:15 02/10/21 22:14 02/09/21 23:03 Patient Own Medication (Patient'S Own Med) OWN TPN AND LIPIDS DAILY@1800 IV 02/09/21 22:10 02/09/21 22:11 DC Piperacillin Sod/ Tazobactam Sod 4.5 gm/Dextrose 50 ml @ 50 mls/hr Q6H IV 02/08/21 03:00 02/10/21 08:43 DC 02/10/21 05:16 Sodium Chloride 1,000 ml @ 125 mls/hr Q8H IV 02/08/21 12:30 02/09/21 07:49 DC 02/09/21 07:15 Sodium Chloride 1,000 ml @ 125 mls/hr Q8H IV 02/09/21 16:45 02/10/21 11:47 Sodium Chloride (Nacl 0.9%) 1,000 ml BOLUS IV 02/07/21 21:00 02/07/21 21:15 DC 02/07/21 23:56 Vancomycin HCl 500 mg/Dextrose 110 ml @ 110 mls/hr Q8H IV 02/08/21 19:00 02/10/21 11:47 Vancomycin HCl 750 mg/IV Miscellaneous Supplies 1 each/ Sodium Chloride 275 ml @ 275 mls/hr Q8H IV 02/08/21 18:00 02/10/21 09:49 Vancomycin HCl 1000 mg/IV Miscellaneous Supplies 1 each/ Sodium Chloride 270 ml @ 270 mls/hr Q8H IV 02/08/21 02:00 02/08/21 18:08 DC 02/08/21 09:40 Zolpidem Tartrate (Ambien) 10 mg QHSP PRN PO INSOMNIA 02/08/21 01:25 02/09/21 20:58 Tawnya French MD Feb 10, 2021 15:28
[2021-02-10 16:00] VITALS: BP 118/72
[2021-02-10] MEDS ORDERED: ceFAZolin SOD 2 GM in IV 1 EA IV SCH (17:00)
--- NOTE | 2021-02-10 17:34 | IPNPDOC ---
Date Seen The patient was seen on 02/10/21. This is a 41-year-old woman who has been referred from the inpatient medical service for an opinion regarding the use of anticoagulants in the context of the following description * The patient was admitted from the emergency room on 02/07/2021 as she complained of pain in the neck pain in the area of the Galicia catheter that appeared to have been in place on the left side(on this day when I saw her the catheter had been removed and her dressing was in place) apparently the reason for catheter feeding is that she has severe absorption related issues consequent to gastric bypass and a shortened bowel. At the time of admission she had cellulitis in the left upper chest neck area and was admitted for sepsis consequent to an infected Galicia line. Examination at that time showed that the area was red and tender she was andres cultured and started on PIP/Tazo along with vancomycin. Pain control was carried out with opiates ID was consulted and interventional radiology eventually removed the catheter and the tips was sent for culture. The culture grew Staphylococcus aureus the details of which can be reviewed in the record * She has multiple other comorbid problems which include as she indicated to me that she has a problem with gastric emptying and the reasons for this gastric emptying problems are not clear consequently she requires feeding and a multimodal manner * She was treated with low molecular weight heparin for prophylactic purposes at a dose of 40 mg of Lovenox daily * During the course of her hospital admission her decline of the hemoglobin and white cells and the platelets occurred concomitantly such that the hemoglobin now is 9 g WBC count 3.6 platelets 168 from 299 and a question that was raised was whether there was any internal bleeding that was not picked up * The above problem is basically compounded by her history as she indicates that during her she was diagnosed to have both protein C and S disease. She indicates that because of her lack of absorption of oral anticoagulants one of which she remembers Eliquis could hardly have reached.levels of a therapeutic nature because she indicates that they tried to determine the blood anticoagulation effectiveness and simply could not be demonstrated * She indicates that in November of this year she was admitted to [facility] where she had bleeding at lower doses and high doses from the GI tract when low molecular weight heparin was used * I tried to call her immigration paralegal in [place] but could not reach his office as it was closed since the call was not answered * A CT of the neck with contrast reported on 02/10/2021 shows filling defect on the left internal jugular to the level of the clavicle which came to the level of the PICC line * Concern for declined hemoglobin had to hold on the Lovenox * I reviewed the patient case and with the fluid infusions that she requires as well as the dilutional effects of this on the CBC and decline of the albumin as well makes me fairly confident that because bleeding per se is not evident at the moment the decline of hemoglobin and other parameters are dilutional * I have been asked to give a hematologic opinion about the need to anticoagulate The past medical history includes elevated liver enzymes pseudoseizures GERD depression and anxiety and pain related issues Progress Note SUBJECTIVE: Patient is a [41-year-old] [White] [female] sitting in the bed comfortable in the company of her and able to give a good historical account. OBJECTIVE PHYSICAL EXAMINATION: VITAL SIGNS: Please see below. GENERAL: [Comfortable sitting up] HEENT: HEENT unremarkable except in the left neck there is general tenderness but I could not feel a cord CARDIOVASCULAR: The area of the left upper chest is only mildly erythematous there is a patch in place and has been unremarkable RESPIRATORY: [Generally clear]. ABDOMINAL: J-tube in place] EXTREMITIES: Unremarkable NEUROLOGICAL: [No focal findings PSYCHOLOGICAL: Slightly depressed LABORATORY DATA, IMAGING STUDIES, MICROBIOLOGY: Please see below. ASSESSMENT AND PLAN: This is a [41 ]-year-old [ [woman with history of sepsis in the left neck area as described above has competing issues. On the one hand she gives a history of having bleeding on anticoagulants even on low doses and on the other hand she has staphylococcal infections the catheter tip and perhaps even in the blood clot which was demonstrated. Thus antibiotics from the mainstay obviously and she has improved quite a lot in the chest wall. However I think the risk reported this time favors the continuation of low doses of Lovenox at 40 mg on a daily basis given that inherited disorders have a propensity along with stresses to cause clots. In her case it could occur elsewhere. And we certainly do not wish a retrograde propagation of this clot. Therefore I think anticoagulation cautiously is favored by the risk/reward in my opinion. I do not think that at the moment it is necessary to undertake any detail assessments of the GI tract except those warranted for her daily care. She can be monitored carefully on a clinical basis. Would like to see decline of the pain in the neck and a tolerance to Lovenox. Please call if needed. Have discussed these matters with her attending today VS, I&O, 24H, Joel Vital Signs/I&O Vital Signs Date Time Temp Pulse Resp B/P (MAP) Pulse Ox O2 Delivery O2 Flow Rate FiO2 02/10/21 12:00 97.7 90 18 96/54 (68) 90 Room Air 02/08/21 16:50 10.0 I&O- Last 24 Hours up to 6 AM 02/10/21 06:00 Intake Total 4163 ml Output Total 600 ml Balance 3563 ml Laboratory Data 24H LABS Laboratory Tests 2 02/10/21 04:52: Nucleated Red Blood Cells % (auto) 0.0, Anion Gap 4L, Glomerular Filtration Rate > 60.0, Calcium Level 8.3L, Magnesium Level 2.1, Total Bilirubin 0.4#, Aspartate Amino Transf (AST/SGOT) 50H, Alanine Aminotransferase (ALT/SGPT) 60, Alkaline Phosphatase 181H, Total Protein 5.1L, Albumin 2.5L, Albumin/Globulin Ratio 1.0L 02/10/21 09:08: Vancomycin Level Trough 19.2 CBC/BMP Laboratory Tests 02/10/21 04:52 Microbiology Microbiology 02/08/21 Catheter Tip Culture - Final, Complete Staphylococcus Aureus 02/07/21 Blood Culture - Preliminary, Resulted No Growth after 48 hours. All Specime... 02/07/21 Blood Culture - Preliminary, Resulted No Growth after 48 hours. All Specime... 02/07/21 Urine Culture - Preliminary, Resulted Strep Agalactiae Group B Lactobacillus Species 02/07/21 Blood Culture - Preliminary, Resulted No Growth after 48 hours. All Specime... 02/07/21 Blood Culture - Preliminary, Resulted No Growth after 48 hours. All Specime... RO HERNANDEZCP Feb 10, 2021 17:34
[2021-02-10] MEDS: ceFAZolin SOD 2 GM in IV 1 EA IV SCH (18:03)
[2021-02-10 20:00] VITALS: BP 98/55
[2021-02-10] MEDS: zolPIDEM TARTRATE 5 MG TAB PO PRN (20:14)
[2021-02-10] MEDS: LIPIDS IV SCH (23:21)
[2021-02-10] MEDS: TPN IV SCH (23:21)
[2021-02-11] VITALS (7 sets, daily range): BP systolic 84–121; BP diastolic 56–63
[2021-02-11] MEDS ORDERED: diphenhydrAMINE 50MG/ML VIAL (J1200) IV ONE (01:30)
[2021-02-11] MEDS: ONDANSETRON 4 MG TAB GT PRN (01:36)
[2021-02-11] MEDS: ceFAZolin SOD 2 GM in IV 1 EA IV SCH ×3 (01:37→16:34)
[2021-02-11 05:12] LABS: HEMATOCRIT 32.2 % (36.0-47.0); MEAN CORPUSCULAR HEMOGLOBIN 28.2 pg (27.0-33.0); MEAN CORPUSCULAR HGB CONC 31.1 g/dl (32.0-36.5); PLATELET COUNT, AUTOMATED 222 10^3/uL (150-450); RED BLOOD COUNT 3.54 10^6/uL (4.00-5.40); WHITE BLOOD COUNT 5.5 10^3/uL (4.0-10.0)
[2021-02-11 05:23] LABS: ALBUMIN 2.8 GM/DL (3.2-5.2); ALT/SGPT 52 U/L (12-78); BILIRUBIN,TOTAL 0.3 MG/DL (0.2-1.0); BLOOD UREA NITROGEN 10 MG/DL (7-18); CALCIUM LEVEL 8.7 MG/DL (8.5-10.1); CARBON DIOXIDE LEVEL 30 MEQ/L (21-32); CHLORIDE LEVEL 109 MEQ/L (98-107); GLOMERULAR FILTRATION RATE > 60.0 (>58); GLUCOSE, FASTING 162 MG/DL (70-100); POTASSIUM SERUM 3.9 MEQ/L (3.5-5.1); SODIUM LEVEL 142 MEQ/L (136-145); TOTAL PROTEIN 5.7 GM/DL (6.4-8.2)
[2021-02-11] MEDS: levETIRAcetam 250MG TABLET (KEPPRA) GT SCH ×2 (08:52→20:49)
[2021-02-11] MEDS: PANTOPRAZOLE 40MG VIAL (C9113 PER 1) IV SCH ×2 (08:52→20:48)
[2021-02-11] MEDS: FLUoxetine 20 MG CAP GT SCH (08:52)
[2021-02-11] MEDS ORDERED: ENOXAPARIN 40MG/0.4ML SYRINGE (J1650 PER 10MG) SC SCH (09:00)
[2021-02-11] MEDS: oxyCODONE 5MG TAB GT PRN ×2 (10:11→15:40)
--- NOTE | 2021-02-11 16:15 | IPNPDOC ---
Date Seen The patient was seen on 02/11/21. Progress Note SUBJECTIVE: Less left neck redness, ammonia distiller to touch. Tolerating lovenox 40 mg SC, H/H improved with stopping fluids. Please refer to heme/onc notes as to recommendations to anticoagulation and complicated GI bleed/clotting history. Remains afebrile, WBC wnl. OBJECTIVE: PHYSICAL EXAMINATION: VITAL SIGNS: Please see below GENERAL APPEARANCE: NAD, resting in bed HEENT: NC/AT. EOMI. PERRLA. Conjunctiva and lids normal. No scleral icterus. CARDIOVASCULAR: Tachycardic. Regular rhythm. No murmurs, rubs, or gallops appreciated. LUNGS: Lungs clear to auscultation. No wheezes, rales, or rhonchi appreciated. CHEST WALL: Prior Galicia cath site slightly suppurative still, tender to touch, tenderness extends up left neck with decreased erythema/warmth around it. ABDOMEN: Abd soft. Tenderness around J tube. J tube has an area of erythema around it EXTREMITIES: No pitting edema to BLE. NEUROLOGICAL: CN 2-12 intact, no focal deficits LABORATORY DATA: Please see below IMAGING: CT neck with contrast 02/10/21: A central venous catheter (PICC) enters on the right. There is a filling defect on the left, presumably thrombus, is seen in the left internal jugular vein (image 56 series 301) that appears to descend to the level of the clavicle and cross to the superior vena cava to the level of the PICC line. Chest x-ray (02/07/21) No acute cardiopulmonary process appreciated per Dr. Michael James. Thyroid US (02/07/21) Small amount of subcutaneous fluid surrounds the port which should be correlated clinically. Otherwise unremarkable directed ultrasound per Dr. Michael James. Liver US: 1. Hepatic steatosis. 2. Dilated common biliary duct measuring 10 mm, previously 12 mm. Presumably related to prior cholecystectomy and physiologic. MICROBIOLOGY: Galicia catheter tip Cx: pending results Blood cultures: NG to date UA: neg ASSESSMENT: is a 41 year old female with a past medical hx of severe gastroparesis on chronic TPN use and J tube for feeding/meds, Galicia catheter in place, chronic abd pain, malabsorption, short gut syndrome, GERD, depression, anxiety who presents to the ED with complains of abd pain, neck pain around her port site, L eye pain & blurry vision; she will be admitted for management of sepsis likely 2/2 cellulitis w Galicia catheter infection. PLAN: Left IJ thrombus descending to level of clavicle -Recent hx of hospitalization for GI bleed, which reoccurred same hospitalization when attempted to start back on lovenox BID in 11/2019 [facility] -Hx of protein C &S deficiency, clots (see problems below) -CT neck above -Tenderness, warmth may be from this thrombus as well -Discussed case with Dr. Paulie Escamilla (patient's crane service technician in [place], ) to further discuss, as she followed up with him after her hospitalization and is familiar with her complicated hypercoagulable state. He recommended us consult with our heme/onc podiatric surgeon, Dr. Gutierrez who later discussed in detail recommendations. Please f/u his note. -Decision: to initiate less than therapeutic dosing of lovenox at 40 mg SC daily (patient is very aware this is not therapeutic dosing and risks of not being on therapeutic dosing- discussed in detail at bedside by myself and heme/onc) and see how she tolerates. Will incr to 60 mg SC daily likely 02/12/21 if tolerates but not go higher per heme/onc here. -Risks/benefits discussed with patient, including increased risk of bleeding -Daily CBC MSSA left chest cellulitis 2/2 to Galicia catheter infection-resolved sepsis -Afebrile, WBC wnl, LA wnl -Less warmth persist with some purulence at site where Galicia was removed -S/p Galicia catheter removal by IR 02/08/21 -PICC placed in RUE 02/08/21 -Cath tip: MSSA -C/w ancef Q8H, tylenol PRN, pain control with home meds -ID consulted Strep agalactiae, Staphylococcus lugdenensis, lactobacillus UTI -Completed three days of IV vancomycin Acute on chronic iron deficiency anemia likely 2/2 to dilution -Hx of requiring transfusions, iron infusions likely complicated by recent GI bleed ([facility]) -H/H improving since off IVFS -F/u occult blood -Requested most recent records from hospital stay with GI bleed from [facility] today, have call out to heme/onc provider to return -Daily CBC Severe gastroparesis with malabsorption, on daily TPN. Hx of short gut syndrome, chronic n/v -Home TPN restarted. -Per Dr. Gomez, no longer candidate for tunnelled catheters (i.e. Galicia's, multiple infections with tunnelled catheters), will need to keep PICC, PFS aware. -Regular diet also on -Zofran PRN Elevated liver enzymes possibly 2/2 to hepatic steatosis -AST/ALT wnl today -No abdominal pain -WNL at bl -Hepatitis neg -Liver US above -CMP daily Pseudoseizures -No seizures since admission -Pt reports that pt has hx of these pseudoseizures and she follows neurology in regards to this. -seizure precautions. -monitor, follow up with her neurologist outpatient. Depression/anxiety -Denies HI/SI -C/w home meds Chronic back and abdominal pain -Holding home PO meds -C/w home pain meds Protein S deficiency /Hx of clots in past -Clot suspected now -Per patient, she is NO LONGER on lovenox BID because of history of GI bleed. She states she was told to weight risk vs. benefit and opted not to continue -Currently back on only prophylactic lovenox here -SCDs GERD -C/w PPI BID DVT px -lovenox low dose, SCDs, teds Resolved issues: L eye pain DISPOSITION: C/w treatment above. Heme and ID consulted. Plan is d/c home when medically improved. VS, I&O, 24H, Fishbone Vital Signs/I&O Vital Signs Date Time Temp Pulse Resp B/P (MAP) Pulse Ox O2 Delivery O2 Flow Rate FiO2 02/11/21 16:00 97.3 93 18 108/63 (78) 99 Room Air 02/08/21 16:50 10.0 I&O- Last 24 Hours up to 6 AM 02/11/21 06:00 Intake Total 530 ml Output Total 1800 ml Balance -1270 ml Laboratory Data 24H LABS Laboratory Tests 2 02/11/21 04:20: Nucleated Red Blood Cells % (auto) 0.0, Anion Gap 3L, Glomerular Filtration Rate > 60.0, Calcium Level 8.7, Total Bilirubin 0.3, Aspartate Amino Transf (AST/SGOT) 28, Alanine Aminotransferase (ALT/SGPT) 52, Alkaline Phosphatase 198H, Total Protein 5.7L, Albumin 2.8L, Albumin/Globulin Ratio 1.0L CBC/BMP Laboratory Tests 02/11/21 04:20 Microbiology Microbiology 02/08/21 Catheter Tip Culture - Final, Complete Staphylococcus Aureus 02/07/21 Blood Culture - Preliminary, Resulted No Growth after 72 hours. All specime... 02/07/21 Blood Culture - Preliminary, Resulted No Growth after 72 hours. All specime... 02/07/21 Urine Culture - Final, Complete Strep Agalactiae Group B Staphylococcus Lugdunensis Lactobacillus Species 02/07/21 Blood Culture - Preliminary, Resulted No Growth after 72 hours. All specime... 02/07/21 Blood Culture - Preliminary, Resulted No Growth after 72 hours. All specime... Tawnya French MD Feb 11, 2021 16:15
[2021-02-11] MEDS: zolPIDEM TARTRATE 5 MG TAB PO PRN (20:49)
[2021-02-11] MEDS: LIPIDS IV SCH (23:39)
[2021-02-11] MEDS: TPN IV SCH (23:39)
[2021-02-12] VITALS: BP 106/58
[2021-02-12] MEDS: ceFAZolin SOD 2 GM in IV 1 EA IV SCH ×3 (01:56→16:51)
[2021-02-12] MEDS: oxyCODONE 5MG TAB GT PRN ×3 (01:57→16:50)
[2021-02-12 04:00] VITALS: BP 108/71
[2021-02-12] MEDS: ONDANSETRON 4 MG TAB GT PRN (04:06)
[2021-02-12] MEDS ORDERED: diphenhydrAMINE 50MG/ML VIAL (J1200) IV ONE (05:05)
[2021-02-12 05:10] LABS: HEMOGLOBIN 10.7 g/dl (12.0-15.5); MEAN CORPUSCULAR HEMOGLOBIN 28.4 pg (27.0-33.0); MEAN CORPUSCULAR HGB CONC 31.5 g/dl (32.0-36.5); MEAN CORPUSCULAR VOLUME 90.2 fl (80.0-96.0); PLATELET COUNT, AUTOMATED 281 10^3/uL (150-450); RED BLOOD COUNT 3.77 10^6/uL (4.00-5.40); WHITE BLOOD COUNT 5.6 10^3/uL (4.0-10.0)
[2021-02-12 05:39] LABS: ALBUMIN 2.9 GM/DL (3.2-5.2); ALT/SGPT 37 U/L (12-78); BILIRUBIN,TOTAL 0.2 MG/DL (0.2-1.0); BLOOD UREA NITROGEN 14 MG/DL (7-18); CALCIUM LEVEL 9.2 MG/DL (8.5-10.1); CARBON DIOXIDE LEVEL 24 MEQ/L (21-32); CHLORIDE LEVEL 106 MEQ/L (98-107); CREATININE FOR GFR 0.65 MG/DL (0.55-1.30); GLOMERULAR FILTRATION RATE > 60.0 (>58); GLUCOSE, FASTING 191 MG/DL (70-100); SODIUM LEVEL 137 MEQ/L (136-145); TOTAL PROTEIN 6.5 GM/DL (6.4-8.2)
[2021-02-12 08:00] VITALS: BP 108/64
[2021-02-12] MEDS: PANTOPRAZOLE 40MG VIAL (C9113 PER 1) IV SCH ×2 (08:07→20:47)
[2021-02-12] MEDS: FLUoxetine 20 MG CAP GT SCH (08:08)
[2021-02-12] MEDS: levETIRAcetam 250MG TABLET (KEPPRA) GT SCH ×2 (08:08→20:45)
[2021-02-12] MEDS: ENOXAPARIN 60MG/0.6ML SYRINGE (J1650 PER 10MG) SC SCH (09:16)
[2021-02-12] MEDS: diphenhydrAMINE 50MG/ML VIAL (J1200) IV PRN ×2 (11:22→20:46)
--- NOTE | 2021-02-12 11:27 | IPNPDOC ---
Date Seen The patient was seen on 02/12/21. Progress Note SUBJECTIVE: Even less left neck redness, more tender to touch mid-way up left neck. Tolerating lovenox 40 mg SC, H/H improved further so lovenox increased to 60 mg SC daily as discussed with Dr. Gutierrez, patient. . Remains afebrile, WBC wnl. OBJECTIVE: PHYSICAL EXAMINATION: VITAL SIGNS: Please see below GENERAL APPEARANCE: NAD, resting in bed HEENT: NC/AT. EOMI. PERRLA. Conjunctiva and lids normal. No scleral icterus. CARDIOVASCULAR: Tachycardic. Regular rhythm. No murmurs, rubs, or gallops appreciated. LUNGS: Lungs clear to auscultation. No wheezes, rales, or rhonchi appreciated. CHEST WALL: Prior Galicia cath scabbing over, nonsuppurative today. Tender to touch mid-way up left neck with decreased erythema/warmth/swelling ABDOMEN: Abd soft. Tenderness around J tube. EXTREMITIES: No pitting edema to BLE. NEUROLOGICAL: CN 2-12 intact, no focal deficits LABORATORY DATA: Please see below IMAGING: CT neck with contrast 02/10/21: A central venous catheter (PICC) enters on the right. There is a filling defect on the left, presumably thrombus, is seen in the left internal jugular vein (image 56 series 301) that appears to descend to the level of the clavicle and cross to the superior vena cava to the level of the PICC line. Chest x-ray (02/07/21) No acute cardiopulmonary process appreciated per Dr. Michael James. Thyroid US (02/07/21) Small amount of subcutaneous fluid surrounds the port which should be correlated clinically. Otherwise unremarkable directed ultrasound per Dr. Michael James. Liver US: 1. Hepatic steatosis. 2. Dilated common biliary duct measuring 10 mm, previously 12 mm. Presumably related to prior cholecystectomy and physiologic. MICROBIOLOGY: Galicia catheter tip Cx: pending results Blood cultures: NG to date UA: neg ASSESSMENT: is a 41 year old female with a past medical hx of severe gastroparesis on chronic TPN use and J tube for feeding/meds, Galicia catheter in place, chronic abd pain, malabsorption, short gut syndrome, GERD, depression, anxiety who presents to the ED with complains of abd pain, neck pain around her port site, L eye pain & blurry vision; she will be admitted for management of se psis likely 2/2 cellulitis w Galicia catheter infection. PLAN: Left IJ thrombus descending to level of clavicle -Recent hx of hospitalization for GI bleed, which reoccurred same hospitalization when attempted to start back on lovenox BID in 11/2019 [facility] -Hx of protein C &S deficiency, clots (see problems below) -CT neck above -Tenderness up mid neck may be from this thrombus as well -Discussed case with Dr. Paulie Escamilla (patient's air launch weapons technician in [place], ) to further discuss, as she followed up with him after her hospitalization and is familiar with her complicated hypercoagulable state. He recommended us consult with our heme/onc manufacturing applications engineer, Dr. Gutierrez who later discus sed in detail recommendations. Please f/u his note. -Decision after speaking with both heme/onc specialists above: to initiate less than therapeutic dosing of lovenox at 40 mg SC daily (patient is very aware this is not therapeutic dosing and risks of not being on therapeutic dosing- discussed in detail at bedside by myself and heme/onc) and see how she tolerates. Increase to 60 mg SC daily likely 02/12/21 if tolerates but not go higher per heme/onc here. -Increased to lovenox 60 mg SC daily 02/12/21, will watch closely -Risks/benefits discussed with patient, including increased risk of bleeding. patient states she is not against going home with increased dose lovenox if needed and knows what to look for with bleeding. -Will TB with heme/onc 02/13/21 to discuss likely d/c plan with lovenox -Daily CBC MSSA left chest cellulitis 2/2 to Galicia catheter infection-resolved sepsis -Afebrile, WBC wnl, LA wnl -Less warmth persist with some purulence at site where Galicia was removed -S/p Galicia catheter removal by IR 02/08/21 -PICC placed in RUE 02/08/21 -Cath tip: MSSA -C/w ancef Q8H, tylenol PRN, pain control with home meds -ID consulted and plan is to d/c home with IV abx to complete total of 14 days tx (01/22/21). Will TB with Dr. Orozco 02/12/21 Strep agalactiae, Staphylococcus lugdenensis, lactobacillus UTI -Completed three days of IV vancomycin Acute on chronic iron deficiency anemia likely 2/2 to dilution -Hx of requiring transfusions, iron infusions likely complicated by recent GI bleed ([facility]) -H/H improving since off IVFS -F/u occult blood -Requested most recent records from hospital stay with GI bleed from [facility] today, have call out to heme/onc provider to return -Daily CBC Severe gastroparesis with malabsorption, on daily TPN. Hx of short gut syndrome, chronic n/v -Home TPN restarted -Per Dr. Gomez, no longer candidate for tunnelled catheters (i.e. Galicia's, multiple infections with tunnelled catheters), will need to keep PICC, PFS aware. -Regular diet also ordered -Zofran PRN Elevated liver enzymes possibly 2/2 to hepatic steatosis -AST/ALT wnl today -No abdominal pain -WNL at bl -Hepatitis neg -Liver US above -CMP daily Pseudoseizures -No seizures since admission -Pt reports that pt has hx of these pseudoseizures and she follows neurology in regards to this. -seizure precautions. -monitor, follow up with her neurologist outpatient. Depression/anxiety -Denies HI/SI -C/w home meds Chronic back and abdominal pain -Holding home PO meds -C/w home pain meds Protein S deficiency /Hx of clots in past -new clot in left IJ -Per patient, she is NO LONGER on lovenox BID because of history of GI bleed. She states she was told to weight risk vs. benefit and opted not to continue -Currently back on only lovenox here, no s/s of bleeding -SCDs GERD -C/w PPI BID DVT px -lovenox 60 mg SC daily, SCDs, teds Resolved issues: L eye pain DISPOSITION: C/w treatment above. Heme and ID consulted. Plan is d/c home when medically improved- after discussing with specialists on 02/13/21 will decide on discharge plan. VS, I&O, 24H, Fishbone Vital Signs/I&O Vital Signs Date Time Temp Pulse Resp B/P (MAP) Pulse Ox O2 Delivery O2 Flow Rate FiO2 02/12/21 08:38 18 Room Air 02/12/21 08:00 97.5 101 108/64 (79) 94 02/08/21 16:50 10.0 I&O- Last 24 Hours up to 6 AM 02/12/21 06:00 Intake Total 2578 ml Output Total 1700 ml Balance 878 ml Laboratory Data 24H LABS Laboratory Tests 2 02/12/21 04:45: Nucleated Red Blood Cells % (auto) 0.0, Anion Gap 7L, Glomerular Filtration Rate > 60.0, Calcium Level 9.2, Total Bilirubin 0.2, Aspartate Amino Transf (AST/SGOT) 13, Alanine Aminotransferase (ALT/SGPT) 37, Alkaline Phosphatase 176H, Total Protein 6.5, Albumin 2.9L, Albumin/Globulin Ratio 0.8L CBC/BMP Laboratory Tests 02/12/21 04:45 Microbiology Microbiology 02/08/21 Catheter Tip Culture - Final, Complete Staphylococcus Aureus 02/07/21 Blood Culture - Preliminary, Resulted No Growth after 72 hours. All specime... 02/07/21 Blood Culture - Preliminary, Resulted No Growth after 72 hours. All specime... 02/07/21 Urine Culture - Final, Complete Strep Agalactiae Group B Staphylococcus Lugdunensis Lactobacillus Species 02/07/21 Blood Culture - Preliminary, Resulted No Growth after 72 hours. All specime... 02/07/21 Blood Culture - Preliminary, Resulted No Growth after 72 hours. All specime... Tawnya French MD Feb 12, 2021 11:27
[2021-02-12 16:00] VITALS: BP 99/55
[2021-02-12 20:00] VITALS: BP 117/59
[2021-02-12] MEDS: zolPIDEM TARTRATE 5 MG TAB PO PRN (20:45)
[2021-02-12] MEDS ORDERED: TPN IV SCH (23:00)
[2021-02-12] MEDS ORDERED: LIPIDS IV SCH (23:00)
[2021-02-13] MEDS: oxyCODONE 5MG TAB GT PRN ×3 (00:02→10:00)
[2021-02-13] MEDS: ceFAZolin SOD 2 GM in IV 1 EA IV SCH ×2 (00:53→08:53)
[2021-02-13] MEDS ORDERED: ONDANSETRON 4MG/2ML VIAL IV ONE (03:20)
[2021-02-13 04:00] VITALS: BP 96/56
[2021-02-13 05:02] LABS: HEMATOCRIT 36.7 % (36.0-47.0); HEMOGLOBIN 11.7 g/dl (12.0-15.5); MEAN CORPUSCULAR HEMOGLOBIN 28.7 pg (27.0-33.0); MEAN CORPUSCULAR HGB CONC 31.9 g/dl (32.0-36.5); PLATELET COUNT, AUTOMATED 293 10^3/uL (150-450); RED BLOOD COUNT 4.08 10^6/uL (4.00-5.40); WHITE BLOOD COUNT 5.8 10^3/uL (4.0-10.0)
[2021-02-13 05:40] LABS: ALBUMIN 3.4 GM/DL (3.2-5.2); ALT/SGPT 28 U/L (12-78); BILIRUBIN,TOTAL 0.2 MG/DL (0.2-1.0); BLOOD UREA NITROGEN 15 MG/DL (7-18); CALCIUM LEVEL 8.8 MG/DL (8.5-10.1); CARBON DIOXIDE LEVEL 28 MEQ/L (21-32); CHLORIDE LEVEL 104 MEQ/L (98-107); CREATININE FOR GFR 0.64 MG/DL (0.55-1.30); GLOMERULAR FILTRATION RATE > 60.0 (>58); GLUCOSE, FASTING 169 MG/DL (70-100); POTASSIUM SERUM 4.6 MEQ/L (3.5-5.1); SODIUM LEVEL 139 MEQ/L (136-145); TOTAL PROTEIN 6.9 GM/DL (6.4-8.2)
[2021-02-13 07:20] VITALS: BP 111/56
[2021-02-13] MEDS ORDERED: LOVE1INJ SC (07:48)
[2021-02-13] MEDS: diphenhydrAMINE 50MG/ML VIAL (J1200) IV PRN (08:52)
[2021-02-13] MEDS: ENOXAPARIN 60MG/0.6ML SYRINGE (J1650 PER 10MG) SC SCH (08:53)
[2021-02-13] MEDS: FLUoxetine 20 MG CAP GT SCH (08:53)
[2021-02-13] MEDS: PANTOPRAZOLE 40MG VIAL (C9113 PER 1) IV SCH (08:53)
[2021-02-13] MEDS: levETIRAcetam 250MG TABLET (KEPPRA) GT SCH (08:53)
[2021-02-13] MEDS ORDERED: CEFA2SOL IV (11:56)
--- NOTE | 2021-02-13 17:45 | DS.PDOC ---
Discharge Summary General Date of Admission Feb 07, 2021 at 19:45 Date of Discharge 02/13/21 Attending Physician: Tawnya French MD Discharge Summary HISTORY OF PRESENT ILLNESS: Patient is a 41 year old female who presents to the ED with complains of abd pain and neck pain. She reports that her abd pain started 5 days ago and feels like hunger pains. Her neck pain started 2-3 days ago and worsened yesterday and is more around the site of her port on the L. She states that there has been increasing erythema, warmth, and pain around the site and the redness has spread. Admits to chills but is unsure if she had any fevers. Mother reports that there was a pustule around the port site that drained yellow fluid this morning. Pt last accessed the port this morning and did not have pain when accessing the port. The bandages around the port are to be changed today. She also complains of nausea and vomiting with "a couple" episodes of vomiting. Admits to diarrhea yesterday that was worse than her usual chronic diarrhea. In addition, pt also complains of pain behind her L eye that started 2-3 days ago and is associated with blurry vision. Her L eye pain is also associated with weakness to her R extremities. Mother states that she noticed that pt pupils are intermittently unsymmetrical and "one appears bigger than the other one". HOSPITAL COURSE: Patient was later diagnosed with MSSA left chest cellulitis 2 to Galicia catheter infection. Galicia was removed on 02/08/21 by IR. Sepsis later resolved with IV antibiotics. Vancomycin was later switched to IV ancef on 02/10/21. Area where Galicia was taken out remained purulent for several days and later scabbed over, redness/erythema/warmth significantly improved or resolved. PICC was placed in [facility] on 02/08/21 as well. Cath tip + MSSA. ID was consulted and followed closely. Left IJ thrombus descending to level of clavicle was identified on CT chest. This was complicated as she had recent hx of hospitalization for GI bleed, which reoccurred same hospitalization when attempted to start back on lovenox BID in 11/2019 [facility]. She has a hx of protein C &S deficiency, clots. Discussed case with Dr. Paulie Escamilla (patient's audit reviewer in [place], ), as she followed up with him after her hospitalization and is familiar with her complicated hypercoagulable state. He recommended us consult with our heme/onc station tender, Dr. Gutierrez who later discussed in detail recommendations. Decision after speaking with both heme/onc specialists above: to initiate less than therapeutic dosing of lovenox at 40 mg SC daily (patient is very aware this is not therapeutic dosing and risks of not being on therapeutic dosing- discussed in detail at bedside by myself and heme/onc) and see how she tolerates. This was done and she tolerated it well. We increased to 60 mg SC 02/12/21 and she tolerated this well also. Per heme/onc Dr. Gutierrez, do not increase more than this. Spoke with Dr. Gutierrez on 02/13/21 and decision was made to d/c home with 30 days SC lovenox then she is to follow up with PCP, regular audit reviewer o/p and let them know of her currently being on lovenox. Risks/benefits discussed with patient, including increased risk of bleeding. patient states she is not against going home with increased dose lovenox if needed and knows what to look for with bleeding. What she should look for and report to a medical professional immediately (darker than normal stools, blood in stool, blood in urine, coughing blood, throwing up blood, increased fatigue or lethargy) was discussed in detail. She understood. By 02/13/21 she remained stable, no s/s of bleeding, H/H much improved after stopping IVFs. ID r ecommending continuing with IV Ancef to complete total of 14 days tx (01/22/21), using new PICC line. Will have f/u with Dr. Orozco arranged at discharge. She had strep agalactiae, Staphylococcus lugdenensis, lactobacillus UTI which was treated with three days of IV vancomycin. Acute on chronic iron deficiency anemia likely 2/2 to dilution from aggressive IVFs. One stopping IVFs, this improved greatly. At time of discharge on 02/13/21, patient had no acute complaints. PAST MEDICAL/SURGICAL HISTORY: Gastric bypass surgery with complications Short gut syndrome GERD Hx of severe gastroparesis on chronic TPN and J-tube for feeding and meds Chronic back and abdominal pain Depression and anxiety Chronic iron deficiency anemia requiring transfusions, iron infusions Protein S deficiency on Lovenox History of thrombocytosis Hx of recurrent SBO Hx of recurrent GI bleed Power PICC placement right chest 02/2020 Back surgery Tonsillectomy Gastric bypass with later reversal Endometrial ablation Hysterectomy Galicia catheter Right leg wound drained Left subclavian port placed, removed J-tube placement Removal of G-tube Placement subclavian port with removal in 2018 PICC line placed in 2018 Bowel resection SOCIAL HISTORY: Pt denies tobacco or EtOH use. FAMILY HISTORY: Father: HTN. / Mother: Clotting disorder. SUBJECTIVE: Even less left neck redness, more tender to touch mid-way up left neck. Tolerating lovenox 40 mg SC, H/H improved further so lovenox increased to 60 mg SC daily as discussed with Dr. Gutierrez, patient. . Remains afebrile, WBC wnl. OBJECTIVE: PHYSICAL EXAMINATION: VITAL SIGNS: Please see below GENERAL APPEARANCE: NAD, resting in bed HEENT: NC/AT. EOMI. PERRLA. Conjunctiva and lids normal. No scleral icterus. CARDIOVASCULAR:. NSR, No murmurs, rubs, or gallops appreciated. LUNGS: Lungs clear to auscultation. No wheezes, rales, or rhonchi appreciated. CHEST WALL: Prior Galicia cath scabbing over, nonsuppurative . improved tenderness to touch mid-way up left neck with decreased erythema/warmth/swelling ABDOMEN: Abd soft. no tenderness around J tube. EXTREMITIES: No pitting edema to BLE. PICC line RUE NEUROLOGICAL: CN 2-12 intact, no focal deficits LABORATORY DATA: Please see below IMAGING: CT neck with contrast 02/10/21: A central venous catheter (PICC) enters on the right. There is a filling defect on the left, presumably thrombus, is seen in the left internal jugular vein (image 56 series 301) that appears to descend to the level of the clavicle and cross to the superior vena cava to the level of the PICC line. Chest x-ray (02/07/21) No acute cardiopulmonary process appreciated per Dr. Michael James. Thyroid US (02/07/21) Small amount of subcutaneous fluid surrounds the port which should be correlated clinically. Otherwise unremarkable directed ultrasound per Dr. Michael James. Liver US: 1. Hepatic steatosis. 2. Dilated common biliary duct measuring 10 mm, previously 12 mm. Presumably related to prior cholecystectomy and physiologic. MICROBIOLOGY: Galicia catheter tip Cx: MSSA Blood cultures: NG to date UA: neg ASSESSMENT: Ms. Diaz is a 41 year old female with a past medical hx of severe gastroparesis on chronic TPN use and J tube for feeding/meds, Galicia catheter in place, chronic abd pain, malabsorption, short gut syndrome, GERD, depression, anxiety who presents to the ED with complains of abd pain, neck pain around her port site, L eye pain & blurry vision; she will be admitted for management of sepsis likely 2/2 cellulitis w Galicia catheter infection. PLAN: Left IJ thrombus descending to level of clavicle -Recent hx of hospitalization for GI bleed, which reoccurred same hospitali zation when attempted to start back on lovenox BID in 11/2019 [facility] -Hx of protein C &S deficiency, clots (see problems below) -CT neck above -Tenderness up mid neck may be from this thrombus as well -Discussed case with Dr. Paulie Escamilla (patient's audit reviewer in [place], ) to further discuss, as she followed up with him after her hospitalization and is familiar with her complicated hypercoagulable state. He recommended us consult with our heme/onc station tender, Dr. Gutierrez who later discussed in detail recommendations. Please f/u his note. -Decision after speaking with both heme/onc specialists above: to initiate less than therapeutic dosing of lovenox at 40 mg SC daily (patient is very aware this is not therapeutic dosing and risks of not being on therapeutic dosing- disc ussed in detail at bedside by myself and heme/onc) and see how she tolerates. We increased to 60 mg SC 02/12/21 and she tolerated this well. Per heme/onc Dr. Gutierrez, do not increase more than this -Spoke with Dr. Gutierrez on 02/13/21 and decision was made to d/c home with 30 days SC lovenox then she is to follow up with PCP, regular audit reviewer o/p and let them know of her currently being on lovenox. -Risks/benefits discussed with patient, including increased risk of bleeding. patient states she is not against going home with increased dose lovenox if needed and knows what to look for with bleeding. What she should look for and report to a medical professional immediately (darker than normal stools, blood in stool, blood in urine, coughing blood, throwing up blood, increased fatigue or lethargy) was discussed in detail. She understood. MSSA left chest cellulitis 2/2 to Galicia catheter infection-resolved sepsis -Afebrile, WBC wnl, LA wnl -Less warmth persist with some purulence at site where Galicia was removed -S/p Galicia catheter removal by IR 02/08/21 -PICC placed in RUE 02/08/21 -Cath tip: MSSA -ID following and plan is to d/c home today with IV Ancef to complete total of 14 days tx (01/22/21), new PICC line . Will have f/u with Dr. Orozco arranged at discharge. Strep agalactiae, Staphylococcus lugdenensis, lactobacillus UTI -Completed three days of IV vancomycin Acute on chronic iron deficiency anemia likely 2/2 to dilution from IVFs -Hx of requiring transfusions, iron infusions likely complicated by recent GI bleed ([facility]) -H/H remains much improved since off IVFS -No s/s of bleeding Severe gastroparesis with malabsorption, on daily TPN. Hx of short gut syndrome, chronic n/v -Per Dr. Gomez, no longer candidate for tunnelled catheters (i.e. Galicia's, multiple infections with tunnelled catheters), will need to keep PICC, PFS aware. -C/w home diet, TPN Elevated liver enzymes possibly 2/2 to hepatic steatosis -AST/ALT wnl -No abdominal pain -WNL at bl -Hepatitis neg -Liver US above Pseudoseizures -No seizures since admission -Pt reports that pt has hx of these pseudoseizures and she follows neurology in regards to this. -Follow up with her neurologist outpatient. Depression/anxiety -Denies HI/SI -C/w home meds Chronic back and abdominal pain -C/w home pain meds Protein S deficiency /Hx of clots in past -new clot in left IJ -Per patient, lovenox BID was stopped b/c GI bleed. She states she was told to weight risk vs. benefit and opted not to continue at that time -Currently back on only lovenox here, no s/s of bleeding. See above GERD -C/w PPI DVT px -lovenox 60 mg SC daily Resolved issues: L eye pain DISPOSITION: D/c home with f/u with hematology, ID, PCP. TIME SPENT ON DISCHARGE: 35 minutes. Vital Signs/I&Os Vital Signs Date Time Temp Pulse Resp B/P (MAP) Pulse Ox O2 Delivery O2 Flow Rate FiO2 02/13/21 10:30 18 02/13/21 07:20 96.5 75 111/56 (74) 96 Room Air 02/08/21 16:50 10.0 I&O- Last 24 Hours up to 6 AM 02/13/21 06:00 Intake Total 3326.5 ml Output Total 1650 ml Balance 1676.5 ml Laboratory Data Labs 24H Laboratory Tests 2 02/13/21 04:52: Nucleated Red Blood Cells % (auto) 0.0, Anion Gap 7L, Glomerular Filtration Rate > 60.0, Calcium Level 8.8, Total Bilirubin 0.2, Aspartate Amino Transf (AST/SGOT) 16, Alanine Aminotransferase (ALT/SGPT) 28, Alkaline Phosphatase 187H, Total Protein 6.9, Albumin 3.4, Albumin/Globulin Ratio 1.0L CBC/BMP Laboratory Tests 02/13/21 04:52 Microbiology Microbiology 02/08/21 Catheter Tip Culture - Final, Complete Staphylococcus Aureus 02/07/21 Blood Culture - Final, Complete NO GROWTH AFTER 5 DAYS 02/07/21 Blood Culture - Final, Complete NO GROWTH AFTER 5 DAYS 02/07/21 Urine Culture - Final, Complete Strep Agalactiae Group B Staphylococcus Lugdunensis Lactobacillus Species 02/07/21 Blood Culture - Final, Complete NO GROWTH AFTER 5 DAYS 02/07/21 Blood Culture - Final, Complete NO GROWTH AFTER 5 DAYS Discharge Medications Scheduled Cefazolin Sodium/Dextrose,Iso (Cefazolin 2 G/50 ml-Dextrose) 2 Gm/50 Ml Piggyback, 1 DEIDRE IV Q8H Enoxaparin Sodium (Lovenox) 40 Mg/0.4 Ml Syringe, 60 MG SC DAILY Fluoxetine Hcl (Fluoxetine HCl) 20 Mg Capsule, 20 MG GT DAILY, (Reported) Multivit Infusn,Adult 4,Vit K (Infuvite) 10 Ml Vial, 10 ML IV DAILY, (Reported) THROUGH GALICIA CATHETER Pantoprazole Sodium (Pantoprazole Sodium) 40 Mg Vial, 40 MG IV BID, (Reported) THROUGH GALICIA CATHETER levETIRAcetam (levETIRAcetam) 500 Mg Tablet, 500 MG GT BID, (Reported) Scheduled PRN Albuterol Sulf (Albuterol Sulfate) 2.5 Mg/3 Ml Vial.neb, 2.5 MG INH Q4H PRN for SHORTNESS OF BREATH, (Reported) Albuterol Sulfate (Ventolin Hfa) 18 Gm Hfa.aer.ad, 2 PUFF INH Q6H PRN for SHORTNESS OF BREATH, (Reported) Diclofenac Sodium (Voltaren) 100 Gm Gel..gram., 1 GRAM TOP BID PRN for PAIN, (Reported) APPLY TO RIGHT HIP Diphenhydramine HCl (Diphenhydramine HCl) 50 Mg/1 Ml Vial, 50 MG IV BID PRN for SEVERE NAUSEA, (Reported) THROUGH GALICIA CATHETER Ondansetron (Ondansetron HCl) 2 Mg/1 Ml Vial, 4 MG IV BID PRN for NAUSEA OR VOMITING, (Reported) THROUGH GALICIA CATHETER Oxycodone HCl (Oxycodone HCl) 20 Mg/1 Ml Oral.conc, 2 ML PO Q4H PRN for PAIN, (Reported) 1.5ML-2ML PER RX Zolpidem Tartrate (Zolpidem Tartrate ER) 12.5 Mg Tab.mphase, 12.5 MG GT QHS PRN for SLEEP, (Reported) Allergies Coded Allergies: Sulfa (Sulfonamide Antibiotics) (Verified Allergy, Severe, RESP. PROBLEMS, SWELLING, HIVES, 06/28/20) butorphanol (Verified Allergy, Severe, HIVES/RESP. PROBLEMS (PERCOCET AND TYL#3 OK), 06/28/20) HAS HAD MORPHINE AND DILAUDID IN THE PAST levofloxacin (Verified Allergy, Severe, THROAT SWELLING/HIVES, 06/28/20) tomato (Verified Allergy, Severe, RESP. PROBLEMS, HIVES, 06/28/20) tramadol (Verified Allergy, Severe, SOB - HAS HAD MORPHINE AND DILAUDID IN THE PAST, 06/28/20) scopolamine (Verified Adverse Reaction, Intermediate, VISION LOSS, 06/28/20) NSAIDS (Non-Steroidal Anti-Inflamma (Verified Adverse Reaction, Mild, GASTRIC BYPASS, 06/28/20) Tawnya French MD Feb 13, 2021 17:45
== END 2021-02-13 14:15 | disposition home or self-care (01) | DRG 167 ==
LOC: M ED 15:53 → M ED INP 19:45 → ENRESERV 02-08 12:26 → M PCU 02-08 18:06
PROVIDERS: ADMIT Internal Medicine; ATTEND Internal Medicine
PROC: 02PY33Z Removal of Infusion Device from Great Vessel, Percutaneous Approach (ICD-10-PCS; 2021-02-08)
PROC: 0JPT0XZ Removal of Tunneled Vascular Access Device from Trunk Subcutaneous Tissue and Fascia, Open Approach (ICD-10-PCS; 2021-02-08)
PROC: 02HV33Z Insertion of Infusion Device into Superior Vena Cava, Percutaneous Approach (ICD-10-PCS; principal; 2021-02-08 10:03)
DX: T82.7XXA Infection and inflammatory reaction due to other cardiac and vascular devices, implants and grafts, initial encounter (principal); A41.9 Sepsis, unspecified organism; D68.59 Other primary thrombophilia; K91.2 Postsurgical malabsorption, not elsewhere classified; I82.C12 Acute embolism and thrombosis of left internal jugular vein; K31.84 Gastroparesis; K76.0 Fatty (change of) liver, not elsewhere classified; Y83.1 Surgical operation with implant of artificial internal device as the cause of abnormal reaction of the patient, or of later complication, without mention of misadventure at the time of the procedure; K21.9 Gastro-esophageal reflux disease without esophagitis; F32.9 Major depressive disorder, single episode, unspecified; F41.9 Anxiety disorder, unspecified; B95.61 Methicillin susceptible Staphylococcus aureus infection as the cause of diseases classified elsewhere; D50.9 Iron deficiency anemia, unspecified; Z90.49 Acquired absence of other specified parts of digestive tract; R74.8 Abnormal levels of other serum enzymes; Z79.899 Other long term (current) drug therapy; Z88.2 Allergy status to sulfonamides; Z88.1 Allergy status to other antibiotic agents; Z88.6 Allergy status to analgesic agent; Z88.5 Allergy status to narcotic agent; Z88.8 Allergy status to other drugs, medicaments and biological substances; Z91.018 Allergy to other foods

== ENCOUNTER → 2021-02-23 | Outpatient (REF) | payer OTHER ==
[~2021-02-23] MED LIST changes: +CEFA2SOL IV; +VOLT1GEL15 TOP; +ZOLP12.518 GT
[2021-02-23 12:46] LABS: BASO # 0.1 10^3/uL (0.0-0.2); BASO % 0.8 % (0.0-1.0); EOS # 0.7 10^3/uL (0.0-0.5); EOS % 10.6 % (0.0-3.0); HEMATOCRIT 39.1 % (36.0-47.0); HEMOGLOBIN 12.2 g/dl (12.0-15.5); LYMPH % 29.9 % (24.0-44.0); MEAN CORPUSCULAR HEMOGLOBIN 28.2 pg (27.0-33.0); MEAN CORPUSCULAR HGB CONC 31.2 g/dl (32.0-36.5); MEAN CORPUSCULAR VOLUME 90.3 fl (80.0-96.0); MONO # 0.6 10^3/uL (0.0-0.8); MONO % 8.8 % (2.0-8.0); NEUTROPHILS # 3.3 10^3/uL (1.5-8.5); NEUTROPHILS % 49.3 % (36.0-66.0); PLATELET COUNT, AUTOMATED 351 10^3/uL (150-450); RED BLOOD COUNT 4.33 10^6/uL (4.00-5.40); WHITE BLOOD COUNT 6.6 10^3/uL (4.0-10.0)
[2021-02-23 13:40] LABS: BLOOD UREA NITROGEN 14 MG/DL (7-18); CREATININE FOR GFR 0.92 MG/DL (0.55-1.30); GLUCOSE, FASTING 94 MG/DL (70-100)
[2021-02-23 13:41] LABS: ALT/SGPT 15 U/L (12-78); BILIRUBIN,TOTAL 0.3 MG/DL (0.2-1.0); CALCIUM LEVEL 9.5 MG/DL (8.5-10.1); CARBON DIOXIDE LEVEL 30 MEQ/L (21-32); CHLORIDE LEVEL 104 MEQ/L (98-107); GLOMERULAR FILTRATION RATE > 60.0 (>58); POTASSIUM SERUM 4.3 MEQ/L (3.5-5.1); SODIUM LEVEL 139 MEQ/L (136-145); TOTAL PROTEIN 7.2 GM/DL (6.4-8.2)
[2021-02-23 14:44] LABS: ERYTHROCYTE SEDIMENTATION RATE 18 mm/hr (0-20)
== END ==
LOC: M PLALAB 12:12
PROVIDERS: ATTEND Internal Medicine Infectious Disease
DX: A49.01 Methicillin susceptible Staphylococcus aureus infection, unspecified site (principal)

== ENCOUNTER 2021-02-28 10:36 | Inpatient (IN) | payer BC, OTHER ==
[~2021-02-28] VITALS: Ht 170.2 cm; Wt 87.5 kg
[2021-02-28] MEDS ORDERED: NS 500 ML IV ONE (11:35)
[2021-02-28] MEDS ORDERED: cefTRIAXone SOD 2 GM in D5W MINI-BAG PLUS 50 ML IV ONE (12:00)
[2021-02-28] MEDS ORDERED: NS 2,600 ML in IV 1 EA IV ONE (12:00)
[2021-02-28 12:19] LABS: BASO % 0.5 % (0.0-1.0); EOS # 0.4 10^3/uL (0.0-0.5); EOS % 5.7 % (0.0-3.0); HEMATOCRIT 39.7 % (36.0-47.0); HEMOGLOBIN 12.5 g/dl (12.0-15.5); LYMPH % 15.5 % (24.0-44.0); MEAN CORPUSCULAR HGB CONC 31.5 g/dl (32.0-36.5); MEAN CORPUSCULAR VOLUME 88.8 fl (80.0-96.0); MONO # 0.4 10^3/uL (0.0-0.8); NEUTROPHILS # 4.8 10^3/uL (1.5-8.5); PLATELET COUNT, AUTOMATED 268 10^3/uL (150-450); RED BLOOD COUNT 4.47 10^6/uL (4.00-5.40); WHITE BLOOD COUNT 6.6 10^3/uL (4.0-10.0)
[2021-02-28] MEDS ORDERED: ONDANSETRON 4MG/2ML VIAL IV ONE (12:25)
--- NOTE | 2021-02-28 12:29 | REP ---
INDICATION: rigors. COMPARISON: 02/07/2021. TECHNIQUE: Single portable AP view of the chest was performed. FINDINGS: There is no acute infiltrate or pulmonary edema. Lungs are clear. The heart is not significantly enlarged. The mediastinal silhouette is unremarkable. The visualized osseous structures are intact.There is a right arm PICC line with tip in the superior vena cava. IMPRESSION: No acute pulmonary disease. <Electronically signed by Fredrick Hinton > 02/28/21 [id number]
[2021-02-28 12:30] LABS: INR 0.95; PROTHROMBIN TIME 12.9 SECONDS (12.5-14.3)
[2021-02-28 12:31] LABS: PARTIAL THROMBOPLASTIN TIME 32.5 SECONDS (24.2-38.5)
[2021-02-28] MEDS: MORPHINE 2 MG/ML 1ML VIAL (J2270) IV PRN ×4 (12:31→23:40)
[2021-02-28 12:37] LABS: ALBUMIN 3.9 GM/DL (3.2-5.2); ALT/SGPT 23 U/L (12-78); BILIRUBIN,DIRECT 0.1 MG/DL (0.0-0.2); BILIRUBIN,TOTAL 0.4 MG/DL (0.2-1.0); BLOOD UREA NITROGEN 9 MG/DL (7-18); C REACTIVE PROTEIN QUANTITATIV 1.82 MG/DL (0.00-0.30); CALCIUM LEVEL 10.2 MG/DL (8.5-10.1); CARBON DIOXIDE LEVEL 30 MEQ/L (21-32); CHLORIDE LEVEL 103 MEQ/L (98-107); CREATININE FOR GFR 0.64 MG/DL (0.55-1.30); GLOMERULAR FILTRATION RATE > 60.0 (>58); GLUCOSE, FASTING 116 MG/DL (70-100); LIPASE 82 U/L (73-393); POTASSIUM SERUM 4.5 MEQ/L (3.5-5.1); SODIUM LEVEL 138 MEQ/L (136-145); TOTAL PROTEIN 7.3 GM/DL (6.4-8.2)
[2021-02-28 12:49] LABS: ERYTHROCYTE SEDIMENTATION RATE 41 mm/hr (0-20)
[2021-02-28] MEDS ORDERED: ISOVUE-370 76% 100ML VIAL As Ordered ONE (13:38)
--- NOTE | 2021-02-28 15:00 | REP ---
INDICATION: fever unknown origin. COMPARISON: 11/22/2020. TECHNIQUE: CT chest performed following the intravenous administration of 100 cc of Isovue 370. Sagittal and coronal reconstruction images are performed. FINDINGS: Lungs: Clear, no infiltrate or suspicious nodule. There is a tiny calcified granuloma in the right lower lobe. There is linear fibro atelectasis in the left lower lobe. 0 Mediastinum: No adenopathy. Ester: No adenopathy. Axilla: No adenopathy. Pleura: No effusion. Heart: Not enlarged. Thoracic aorta: No aneurysm or dissection. Right arm PICC line is visualized with the tip in the superior vena cava. Visualized osseous structures: Unremarkable. IMPRESSION: No acute pulmonary disease. <Electronically signed by Fredrick Hinton > 02/28/21 [id number]
--- NOTE | 2021-02-28 15:08 | REP ---
INDICATION: fever unknown origin, possible abscess at peg site COMPARISON: None. TECHNIQUE: CT Scan of the abdomen and pelvis was performed with intravenous administration of 100 cc of Isovue 370, without oral contrast. Sagittal and coronal reconstruction images are performed. FINDINGS: Lung bases: Unremarkable. Liver: Normal Gallbladder: Prior cholecystectomy. Spleen: Normal. Adrenals: Normal. Pancreas: Normal. Kidneys: Normal. Small and large bowel: There has been prior gastric surgery. There is a gastrostomy tube and a jejunostomy tube. There is no free air or abscess. Free fluid: None. Abdominal aorta: No aneurysm or dissection. Adenopathy: None. Appendix: Not inflamed. Osseous structures: Unremarkable. There is lower lumbar fusion hardware present. Pelvis: No mass. Prior hysterectomy. IMPRESSION: Postsurgical changes in the abdomen and pelvis. No acute pathology. <Electronically signed by Fredrick Hinton > 02/28/21 [id number]
[2021-02-28] MEDS ORDERED: ACETAMINOPHEN TAB 650MG DOSE (2X325MG) PO PRN (16:45)
--- NOTE | 2021-02-28 17:12 | HPEPDOC ---
General Date of Admission February 28, 2021 at 16:43 Date of Service: February 28, 2021 Chief Complaint The patient is a 41-year-old female admitted with a reason for visit of Shaking Chills. Source: Patient History of Present Illness Patient is 41 years old female with past medical history of depression and anxiety, pseudoseizures, gastric bypass surgery with gastroparesis on chronic TPN and J -tube for feeding and medications presented to the hospital with rigors. Patient stated for past 34 days she has been having profuse sweating with chills. She denied any fever. Of note, patient was admitted in January and she was diagnosed with MSSA left chest cellulitis 2/ to Hubbard catheter infection. Hubbard was removed on 02/08/21 by IR. Sepsis later resolved with IV antibiotics. Vancomycin was later switched to IV ancef on 02/10/21. Dr. Orozco follows her. Patient was discharged from the hospital with antibiotic therapy with Ancef for 2 weeks. ID recommended to extend antibiotic therapy to 3 weeks. In ER patient was found to have nausea leukocytosis, sedimentation rate of 40, C-reactive protein. CT abdomen and pelvis unremarkable. CT chest unremarkable. Home Medications Scheduled Cefazolin Sodium/Dextrose,Iso (Cefazolin 2 G/50 ml-Dextrose) 2 Gm/50 Ml Piggyback, 1 DEIDRE IV Q8H Enoxaparin Sodium (Lovenox) 40 Mg/0.4 Ml Syringe, 60 MG SC DAILY Fluoxetine Hcl (Fluoxetine HCl) 20 Mg Capsule, 20 MG GT DAILY, (Reported) Multivit Infusn,Adult 4,Vit K (Infuvite) 10 Ml Vial, 10 ML IV DAILY, (Reported) THROUGH HUBBARD CATHETER Pantoprazole Sodium (Pantoprazole Sodium) 40 Mg Vial, 40 MG IV BID, (Reported) THROUGH HUBBARD CATHETER levETIRAcetam (levETIRAcetam) 500 Mg Tablet, 500 MG GT BID, (Reported) Scheduled PRN Albuterol Sulf (Albuterol Sulfate) 2.5 Mg/3 Ml Vial.neb, 2.5 MG INH Q4H PRN for SHORTNESS OF BREATH, (Reported) Albuterol Sulfate (Ventolin Hfa) 18 Gm Hfa.aer.ad, 2 PUFF INH Q6H PRN for SH ORTNESS OF BREATH, (Reported) Diclofenac Sodium (Voltaren) 100 Gm Gel..gram., 1 GRAM TOP BID PRN for PAIN, (Reported) APPLY TO RIGHT HIP Diphenhydramine HCl (Diphenhydramine HCl) 50 Mg/1 Ml Vial, 50 MG IV BID PRN for SEVERE NAUSEA, (Reported) THROUGH HUBBARD CATHETER Ondansetron (Ondansetron HCl) 2 Mg/1 Ml Vial, 4 MG IV BID PRN for NAUSEA OR VOMITING, (Reported) THROUGH HUBBARD CATHETER Oxycodone HCl (Oxycodone HCl) 20 Mg/1 Ml Oral.conc, 2 ML PO Q4H PRN for PAIN, (Reported) 1.5ML-2ML PER RX Zolpidem Tartrate (Zolpidem Tartrate ER) 12.5 Mg Tab.mphase, 12.5 MG GT QHS PRN for SLEEP, (Reported) Allergies Coded Allergies: Sulfa (Sulfonamide Antibiotics) (Verified Allergy, Severe, RESP. PROBLEMS, SWELLING, HIVES, 06/28/20) butorphanol (Verified Allergy, Severe, HIVES/RESP. PROBLEMS (PERCOCET AND TYL#3 OK), 06/28/20) HAS HAD MORPHINE AND DILAUDID IN THE PAST levofloxacin (Verified Allergy, Severe, THROAT SWELLING/HIVES, 06/28/20) tomato (Verified Allergy, Severe, RESP. PROBLEMS, HIVES, 06/28/20) tramadol (Verified Allergy, Severe, SOB - HAS HAD MORPHINE AND DILAUDID IN THE PAST, 06/28/20) scopolamine (Verified Adverse Reaction, Intermediate, VISION LOSS, 06/28/20) NSAIDS (Non-Steroidal Anti-Inflamma (Verified Adverse Reaction, Mild, G ASTRIC BYPASS, 06/28/20) Past Medical History Medical History Gastric bypass surgery with complications Short gut syndrome GERD Hx of severe gastroparesis on chronic TPN and J-tube for feeding and meds Chronic back and abdominal pain Depression and anxiety Chronic iron deficiency anemia requiring transfusions, iron infusions Protein S deficiency on Lovenox History of thrombocytosis Hx of recurrent SBO Hx of recurrent GI bleed Surgical History Power PICC placement right chest 02/2020 Back surgery Tonsillectomy Gastric bypass with later reversal Endometrial ablation Hysterectomy Hubbard catheter Right leg wound drained Left subclavian port placed, removed J-tube placement Removal of G-tube Placement subclavian port with removal in 2018 PICC line placed in 2018 Bowel resection Family History Father: HTN. / Mother: Clotting disorder. Social History * Smoker: Denies Alcohol: Denies Drugs: denies A-FIB/CHADSVASC A-FIB History Current/History of A-Fib/PAF?: No Review of Systems Constitutional: Reports: Chills; Denies: Fever Eyes: Denies: Pain ENT: Denies: Head Aches Skin: Denies: Rash, Lesions Pulmonary: Denies: Cough Cardiovascular: Denies: Chest Pain Gastrointestinal: Reports: Nausea Genitourinary: Denies: Dysuria Hematologic: Denies: Bruising Endocrine: Denies: Polydipsia, Polyphagia Musculoskeletal: Denies: Neck Pain Neurological: Denies: Weakness Psych: Reports: Mood Normal Physical Examination General Exam: Positive: Alert, Cooperative Eye Exam: Positive: PERRLA ENT Exam: Positive: Atraumatic Neck Exam: Positive: Supple; Negative: JVD Chest Exam: Positive: Clear to auscultation Heart Exam: Positive: Rate Normal Telemetry: Positive: No significant arrhythmia Abdomen Exam: Positive: Normal bowel sounds Extremity Exam: Negative: Clubbing, Cyanosis Skin Exam: Positive: Nl turgor and temperature Neuro Exam: Positive: Cranial Nerves 3-12 NL Psych Exam: Positive: Mental status NL Vital Signs Vital Signs Date Time Temp Pulse Resp B/P (MAP) Pulse Ox O2 Delivery O2 Flow Rate FiO2 02/28/21 14:25 96.9 99 20 Room Air 02/28/21 12:57 02/28/21 10:36 100 Laboratory Data Labs 24H Laboratory Tests 2 02/28/21 11:42: Immature Granulocyte % (Auto) 0.3, Neutrophils (%) (Auto) 72.0H, Lymphocytes (%) (Auto) 15.5L, Monocytes (%) (Auto) 6.0, Eosinophils (%) (Auto) 5.7H, Basophils (%) (Auto) 0.5, Neutrophils # (Auto) 4.8, Lymphocytes # (Auto) 1.0L, Monocytes # (Auto) 0.4, Eosinophils # (Auto) 0.4, Basophils # (Auto) 0.0, Nucleated Red Blood Cells % (auto) 0.0, Erythrocyte Sedimentation Rate 41H, Prothrombin Time 12.9, Prothromb Time International Ratio 0.95, Activated Partial Thromboplast Time 32.5, Urine Color YELLOW, Urine Appearance CLEAR, Urine pH 7.0, Urine Spe cific [place] 1.018, Urine Protein NEGATIVE, Urine Glucose (UA) NEGATIVE, Urine Ketones NEGATIVE, Urine Blood NEGATIVE, Urine Nitrite NEGATIVE, Urine Bilirubin NEGATIVE, Urine Urobilinogen 0.2, Urine Leukocyte Esterase 1+H, Urine WBC (Auto) 2, Urine RBC (Auto) 1, Urine Hyaline Casts (Auto) 0, Urine Bacteria (Auto) NEGATIVE, Urine Squamous Epithelial Cells 6, Urine Sperm (Auto) , Anion Gap 5L, Glomerular Filtration Rate > 60.0, Lactic Acid Level 1.3, Calcium Level 10.2H, Total Bilirubin 0.4, Direct Bilirubin 0.1, Aspartate Amino Transf (AST/SGOT) 38H, Alanine Aminotransferase (ALT/SGPT) 23, Alkaline Phosphatase 154H, C- Reactive Protein, Quantitative 1.82H, Total Protein 7.3, Albumin 3.9, [place] min/Globulin Ratio 1.1L, Lipase 82 CBC/BMP Laboratory Tests 02/28/21 11:42 Microbiology Microbiology 02/28/21 Blood Culture, Received Pending 02/28/21 Urine Culture, Received Pending 02/28/21 Respiratory Virus Panel (PCR) ([facility]) - Final, Complete 02/28/21 Blood Culture, Received Pending Assessment/Plan Patient is 41 years old female with past medical history of depression and anxiety, pseudoseizures, gastric bypass surgery with gastroparesis on chronic TPN and J -tube for feeding and medications presented to the hospital with rigors. Patient stated for past 34 days she has been having profuse sweating with chills. She denied any fever. Of note, patient was admitted in January and she was diagnosed with MSSA left chest cellulitis 2/2 to Hubbard catheter infection. Hubbard was removed on 02/08/21 by IR. Sepsis later resolved with IV antibiotics. Vancomycin was later switched to IV ancef on 02/10/21. Dr. Orozco follows her. Patient was discharged from the hospital with antibiotic therapy with Ancef for 2 weeks. ID recommended to extend antibiotic therapy to 3 weeks. In ER patient was found to have nausea leukocytosis, sedimentation rate of 40, C-reactive protein. CT abdomen and pelvis unremarkable. CT chest unremarkable. Problems (1) Shaking chills Status: Acute Problem Text: There is concern for bacteremia Patient currently treated with Ancef for Hubbard catheter infection-resolved sepsis Will check tomorrow CRP and sedimentation rate Dr. Orozco recommended to continue treatment with Ancef Await blood culture (2) Nausea & vomiting Status: Chronic Problem Text: Secondary to gastroparesis Continue home medications (3) Protein S deficiency Problem Text: Continue Lovenox (4) Complication of feeding tube Status: Chronic Problem Text: Continue TPN with home settings Plan / VTE VTE Prophylaxis Ordered?: Yes TANNER YANCEY DO February 28, 2021 17:12
[2021-02-28] MEDS ORDERED: PERCOCET 5MG/325MG TAB PO PRN (18:40)
[2021-02-28 18:50] VITALS: BP 112/80
[2021-02-28] MEDS ORDERED: CEFA10IN IV (18:58)
[2021-02-28] MEDS ORDERED: LOVE0.4I2 SC (18:58)
[2021-02-28] MEDS ORDERED: TPN IV (19:09)
[2021-02-28] MEDS: zolPIDEM TARTRATE 5 MG TAB PO SCH (20:37)
[2021-02-28] MEDS: ceFAZolin SOD 2 GM in IV 1 EA IV SCH (20:38)
[2021-02-28 22:00] VITALS: BP 113/72
[2021-02-28] MEDS ORDERED: [UNRECOGNIZED DRUG - OTHER] IV ONE (22:00)
[2021-02-28] MEDS: levETIRAcetam ORAL SOLUTION 500 MG/5 ML UDC GT SCH (23:27)
[2021-03-01] MEDS: ceFAZolin SOD 2 GM in IV 1 EA IV SCH ×3 (04:35→20:26)
[2021-03-01] MEDS: MORPHINE 2 MG/ML 1ML VIAL (J2270) IV PRN ×6 (04:41→20:25)
[2021-03-01 06:23] VITALS: BP 90/63
[2021-03-01 06:31] LABS: HEMATOCRIT 38.7 % (36.0-47.0); HEMOGLOBIN 12.3 g/dl (12.0-15.5); MEAN CORPUSCULAR HEMOGLOBIN 28.5 pg (27.0-33.0); MEAN CORPUSCULAR HGB CONC 31.8 g/dl (32.0-36.5); MEAN CORPUSCULAR VOLUME 89.6 fl (80.0-96.0); PLATELET COUNT, AUTOMATED 217 10^3/uL (150-450); RED BLOOD COUNT 4.32 10^6/uL (4.00-5.40); WHITE BLOOD COUNT 4.2 10^3/uL (4.0-10.0)
[2021-03-01 06:45] VITALS: BP 117/61
[2021-03-01 06:54] LABS: ALT/SGPT 20 U/L (12-78); BILIRUBIN,TOTAL 0.2 MG/DL (0.2-1.0); BLOOD UREA NITROGEN 14 MG/DL (7-18); C REACTIVE PROTEIN QUANTITATIV 1.03 MG/DL (0.00-0.30); CARBON DIOXIDE LEVEL 23 MEQ/L (21-32); CHLORIDE LEVEL 111 MEQ/L (98-107); CREATININE FOR GFR 0.59 MG/DL (0.55-1.30); GLOMERULAR FILTRATION RATE > 60.0 (>58); GLUCOSE, FASTING 131 MG/DL (70-100); POTASSIUM SERUM 4.4 MEQ/L (3.5-5.1); SODIUM LEVEL 140 MEQ/L (136-145); TOTAL PROTEIN 6.9 GM/DL (6.4-8.2)
[2021-03-01] MEDS ORDERED: ALBUTEROL 90 MCG/ACT 8GM HFA INHALER INH PRN (07:25)
--- NOTE | 2021-03-01 07:37 | ECGEPIP ---
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
[2021-03-01] MEDS ORDERED: ENOXAPARIN 40MG/0.4ML SYRINGE (J1650 PER 10MG) SC SCH (09:00)
[2021-03-01] MEDS: levETIRAcetam ORAL SOLUTION 500 MG/5 ML UDC GT SCH ×2 (09:17→20:24)
[2021-03-01] MEDS: PANTOPRAZOLE 40MG VIAL (C9113 PER 1) IV SCH ×2 (09:17→20:25)
[2021-03-01] MEDS: FLUoxetine 20 MG CAP GT SCH (09:17)
[2021-03-01] MEDS: diphenhydrAMINE 50MG/ML VIAL (J1200) IV SCH ×2 (09:17→20:24)
[2021-03-01] MEDS: ENOXAPARIN 60MG/0.6ML SYRINGE (J1650 PER 10MG) SC SCH (11:20)
[2021-03-01] MEDS: DICLOFENAC EPOLAMINE 1.3 % PATCH TOP SCH ×2 (11:21→20:25)
[2021-03-01 12:35] LABS: FREE THYROXINE INDEX 2.4 % (1.3-4.8); THYROID STIMULATING HORMONE 0.2 uIU/ML (0.358-3.740); THYROXINE (T4) 7.7 UG/DL (4.5-12.0)
--- NOTE | 2021-03-01 14:27 | IPNPDOC ---
Text Note Date of Service The patient was seen on 03/01/21. NOTE Subjective: No any acute events overnight. Patient complains of intermittent chills but stated that she feels better Objective: GENERAL APPEARANCE: NAD HEENT: no scleral icterus, no JVD, EOMI CARDIOVASCULAR: S1S2 LUNGS: CTA ABDOMEN: soft & diabetes, j tube in place MUSCULOSKELETAL: no cyanosis, no swelling INTEGUMENT: no generalized pallor NEUROLOGICAL: cranial nerve function from 2-12 intact intact, follows commands, speech not dysarthric Assessment/Plan Patient is 41 years old female with past medical history of depression and anxiety, pseudoseizures, gastric bypass surgery with gastroparesis on chronic TPN and J -tube for feeding and medications presented to the hospital with rigors. Patient stated for past 34 days she has been having profuse sweating with chills. She denied any fever. Of note, patient was admitted in January and she was diagnosed with MSSA left chest cellulitis 11/22 to [place] catheter infection. [place] was removed on 02/08/21 by IR. Sepsis later resolved with IV antibiotics. Vancomycin was later switched to IV ancef on 02/10/21. Dr. Orozco follows her. Patient was discharged from the hospital with antibiotic therapy with Ancef for 2 weeks. ID recommended to extend antibiotic therapy to 3 weeks. In ER patient was found to have nausea leukocytosis, sedimentation rate of 40, C-reactive protein. CT abdomen and pelvis unremarkable. CT chest unremarkable. Problems (1) Shaking chills There was concern for bacteremia Patient currently treated with Ancef for [place] catheter infection-resolved sepsis CRP 1.03 and sedimentation rate 31 Dr. Orozco recommended to continue treatment with Ancef blood culture negative, pro-calcitonin negative (2) Nausea & vomiting Secondary to gastroparesis Continue home medications (3) Protein S deficiency Continue Lovenox (4) Complication of feeding tube Continue TPN with home settings VS,Fishbone, I+O VS, Fishbone, I+O Laboratory Tests 03/01/21 05:55 Vital Signs Date Time Temp Pulse Resp B/P (MAP) Pulse Ox O2 Delivery O2 Flow Rate FiO2 03/01/21 11:37 18 Room Air 03/01/21 06:45 117/61 (79) 03/01/21 06:23 98.5 90 100 I&O- Last 24 Hours up to 6 AM 03/01/21 06:00 Intake Total 3420 ml Output Total 200 ml Balance 3220 ml TANNER YANCEY DO March 01, 2021 14:27
[2021-03-01] MEDS: SODIUM CHLORIDE 0.9% INJ 10 ML SYR IV SCH (15:20)
[2021-03-01] MEDS ORDERED: ONDANSETRON 4 MG ORAL DISINTEGRATING TAB JT PRN (15:30)
[2021-03-01] MEDS: SODIUM CHLORIDE 0.9% INJ 10 ML SYR IV PRN (18:19)
[2021-03-01] MEDS: zolPIDEM TARTRATE 5 MG TAB PO SCH (20:25)
[2021-03-01 22:00] VITALS: BP 92/62
[2021-03-01] MEDS ORDERED: PARENTERAL NUTRITION IV SCH (22:00)
[2021-03-02] MEDS: MORPHINE 2 MG/ML 1ML VIAL (J2270) IV PRN ×4 (01:24→12:58)
[2021-03-02] MEDS: SODIUM CHLORIDE 0.9% INJ 10 ML SYR IV SCH (04:50)
[2021-03-02] MEDS: ceFAZolin SOD 2 GM in IV 1 EA IV SCH ×2 (04:50→12:58)
[2021-03-02 06:00] VITALS: BP 90/64
[2021-03-02] MEDS: levETIRAcetam ORAL SOLUTION 500 MG/5 ML UDC GT SCH (08:57)
[2021-03-02] MEDS: ENOXAPARIN 60MG/0.6ML SYRINGE (J1650 PER 10MG) SC SCH (08:57)
[2021-03-02] MEDS: FLUoxetine 20 MG CAP GT SCH (08:57)
[2021-03-02] MEDS: diphenhydrAMINE 50MG/ML VIAL (J1200) IV SCH (08:58)
[2021-03-02] MEDS: PANTOPRAZOLE 40MG VIAL (C9113 PER 1) IV SCH (08:58)
[2021-03-02] MEDS: SODIUM CHLORIDE 0.9% INJ 10 ML SYR IV PRN ×2 (08:59→13:05)
[2021-03-02] MEDS: DICLOFENAC EPOLAMINE 1.3 % PATCH TOP SCH (08:59)
[2021-03-02 14:00] VITALS: BP 87/51
--- NOTE | 2021-03-02 16:30 | DS.PDOC ---
Discharge Summary General Date of Admission February 28, 2021 at 16:43 Date of Discharge 03/02/21 Discharge Summary PROCEDURES PERFORMED DURING STAY: [None]. ADMITTING DIAGNOSES: Shaking chills Nausea & vomiting Protein S deficiency Complication of feeding tube DISCHARGE DIAGNOSES: Shaking chills Nausea & vomiting Protein S deficiency Complication of feeding tube COMPLICATIONS/CHIEF COMPLAINT: Shaking Chills. HISTORY OF PRESENT ILLNESS: Patient is 41 years old female with past medical history of depression and anxiety, pseudoseizures, gastric bypass surgery with gastroparesis on chronic TPN and J -tube for feeding and medications presented to the hospital with rigors. Patient stated for past 34 days she has been having profuse sweating with chills. She denied any fever. Of note, patient was admitted in January and she was diagnosed with MSSA left chest cellulitis 2/ to Hubbard catheter infection. Hubbard was removed on 02/08/21 by IR. Sepsis later resolved with IV antibiotics. Vancomycin was later switched to IV ancef on 02/10/21. Dr. Orozco follows her. Patient was discharged from the hospital with antibiotic therapy with Ancef for 2 weeks. ID recommended to extend antibiotic therapy to 3 weeks. In ER patient was found to have nausea leukocytosis, sedimentation rate of 40, C-reactive protein. CT abdomen and pelvis unremarkable. CT chest unremarkable. HOSPITAL COURSE: During hospital stay following issue addressed (1) Shaking chills There was concern for bacteremia Patient currently treated with Ancef for Hubbard catheter infection-resolved sepsis CRP 1.03 and sedimentation rate 31 Dr. Orozco recommended to continue treatment with Ancef blood culture negative, pro-calcitonin negative (2) Nausea & vomiting Secondary to gastroparesis Continue home medications (3) Protein S deficiency Continue Lovenox (4) Continue TPN with home settings DISCHARGE MEDICATIONS: Please see below. ALLERGIES: Please see below. PHYSICAL EXAMINATION ON DISCHARGE: VITAL SIGNS: Please see below. GENERAL APPEARANCE: NAD HEENT: no scleral icterus, no JVD, EOMI CARDIOVASCULAR: S1S2 LUNGS: CTA ABDOMEN: soft & diabetes, j tube in place MUSCULOSKELETAL: no cyanosis, no swelling INTEGUMENT: no generalized pallor NEUROLOGICAL: cranial nerve function from 2-12 intact intact, follows commands, speech not dysarthric LABORATORY DATA: Please see below. IMAGING: fever unknown origin. COMPARISON: 11/22/2020. TECHNIQUE: CT chest performed following the intravenous administration of 100 cc of Isovue 370. Sagittal and coronal reconstruction images are performed. FINDINGS: Lungs: Clear, no infiltrate or suspicious nodule. There is a tiny calcified granuloma in the right lower lobe. There is linear fibro atelectasis in the left lower lobe. 0 Mediastinum: No adenopathy. Ester: No adenopathy. Axilla: No adenopathy. Pleura: No effusion. Heart: Not enlarged. Thoracic aorta: No aneurysm or dissection. Right arm PICC line is visualized with the tip in the superior vena cava. Visualized osseous structures: Unremarkable. IMPRESSION: No acute pulmonary disease. PROGNOSIS: Fair ACTIVITY: [As tolerated]. DIET: Continue TPN DISPOSITION: 01 Home, Self-Care. ITEMS TO FOLLOWUP ON ON OUTPATIENT: Follow-up with ID specialist, gastroenterology team and PCP DISCHARGE CONDITION: [Stable]. TIME SPENT ON DISCHARGE: 40 minutes. Vital Signs/I&Os Vital Signs Date Time Temp Pulse Resp B/P (MAP) Pulse Ox O2 Delivery O2 Flow Rate FiO2 03/02/21 14:00 98.4 95 87/51 (63) 95 Room Air 03/02/21 13:08 18 I&O- Last 24 Hours up to 6 AM 03/02/21 06:00 Intake Total 2685 ml Balance 2685 ml Microbiology Microbiology 03/01/21 Blood Culture - Preliminary, Resulted No growth after 24 hours . All specim... 02/28/21 Blood Culture - Preliminary, Resulted No Growth after 48 hours. All Specime... 02/28/21 Urine Culture - Final, Complete 02/28/21 Respiratory Virus Panel (PCR) ([facility]) - Final, Complete 02/28/21 Blood Culture - Preliminary, Resulted No Growth after 48 hours. All Specime... Discharge Medications Scheduled Cefazolin Sodium (Cefazolin Sodium) 10 Gm Vial, 2 GM IV Q8H, (Reported) STARTED 02/23/21 FOR 10 DAYS Diphenhydramine HCl (Diphenhydramine HCl) 50 Mg/1 Ml Vial, 50 MG IV BID, (Reported) THROUGH HUBBARD CATHETER Enoxaparin Sodium (Lovenox) 60 Mg/0.6 Ml Syringe, 60 MG SC DAILY, (Reported) Fluoxetine Hcl (Fluoxetine HCl) 20 Mg Capsule, 20 MG GT DAILY, (Reported) Pantoprazole Sodium (Pantoprazole Sodium) 40 Mg Vial, 40 MG IV BID, (Reported) THROUGH HUBBARD CATHETER Zolpidem Tartrate (Zolpidem Tartrate ER) 12.5 Mg Tab.mphase, 12.5 MG GT QHS, (Reported) [Tpn] , 1 DOSE IV QHS, (Reported) RUN FOR 14 HOURS levETIRAcetam (levETIRAcetam) 500 Mg Tablet, 500 MG GT BID, (Reported) Scheduled PRN Albuterol Sulf (Albuterol Sulfate) 2.5 Mg/3 Ml Vial.neb, 2.5 MG INH Q4H PRN for SHORTNESS OF BREATH, (Reported) Albuterol Sulfate (Ventolin Hfa) 18 Gm Hfa.aer.ad, 2 PUFF INH Q6H PRN for SHORTNESS OF BREATH, (Reported) Diclofenac Sodium (Voltaren) 100 Gm Gel..gram., 1 GRAM TOP BID PRN for PAIN, (Reported) APPLY TO RIGHT HIP Ondansetron (Ondansetron HCl) 2 Mg/1 Ml Vial, 4 MG IV BID PRN for NAUSEA OR VOMITING, (Reported) THROUGH HUBBARD CATHETER Oxycodone HCl (Oxycodone HCl) 20 Mg/1 Ml Oral.conc, 2 ML PO Q4H PRN for PAIN, (Reported) 1.5ML-2ML PER RX Allergies Coded Allergies: Sulfa (Sulfonamide Antibiotics) (Verified Allergy, Severe, RESP. PROBLEMS, SWELLING, HIVES, 06/28/20) butorphanol (Verified Allergy, Severe, HIVES/RESP. PROBLEMS (PERCOCET AND TYL#3 OK), 06/28/20) HAS HAD MORPHINE AND DILAUDID IN THE PAST levofloxacin (Verified Allergy, Severe, THROAT SWELLING/HIVES, 06/28/20) tomato (Verified Allergy, Severe, RESP. PROBLEMS, HIVES, 06/28/20) tramadol (Verified Allergy, Severe, SOB - HAS HAD MORPHINE AND DILAUDID IN THE PAST, 06/28/20) scopolamine (Verified Adverse Reaction, Intermediate, VISION LOSS, 06/28/20) NSAIDS (Non-Steroidal Anti-Inflamma (Verified Adverse Reaction, Mild, GASTRIC BYPASS, 06/28/20) TANNER YANCEY DO March 02, 2021 16:30
== END 2021-03-02 13:50 | disposition home or self-care (01) | DRG 861 ==
LOC: M ED 10:36 → M ED INP 16:43 → ENRESERV 16:57 → M MS5PR 18:30
PROVIDERS: ADMIT Internal Medicine; ATTEND Internal Medicine
DX: R68.83 Chills (without fever) (principal); D68.59 Other primary thrombophilia; R56.9 Unspecified convulsions; K31.84 Gastroparesis; Z93.1 Gastrostomy status; R11.2 Nausea with vomiting, unspecified; F41.9 Anxiety disorder, unspecified; F32.9 Major depressive disorder, single episode, unspecified; Z79.899 Other long term (current) drug therapy; Z88.2 Allergy status to sulfonamides; Z91.018 Allergy to other foods; Z88.6 Allergy status to analgesic agent; K21.9 Gastro-esophageal reflux disease without esophagitis; D50.9 Iron deficiency anemia, unspecified

== ENCOUNTER → 2021-04-13 | Outpatient (REF) | payer BC, OTHER ==
[~2021-04-13] MED LIST changes: +CEFA10IN IV; +LOVE0.4I2 SC; +OMEP40CA4 PO; -OMEP40CA97 PO; +TPN IV
[2021-04-13 16:50] LABS: APPEARANCE, URINE HAZY (CLEAR); BACTERIA, URINE AUTO NEGATIVE (NEGATIVE); BILIRUBIN, URINE AUTO NEGATIVE (NEGATIVE); BLOOD, URINE BLOOD 1+ (NEGATIVE); COLOR, URINE YELLOW (YELLOW); GLUCOSE, URINE (UA) AUTO NEGATIVE (NEGATIVE); KETONE, URINE AUTO TRACE mg/dL (NEGATIVE); LEUKOCYTE ESTERASE, URINE AUTO 1+ (NEGATIVE); NITRITE, URINE AUTO NEGATIVE (NEGATIVE); PROTEIN, URINE AUTO 1+ mg/dL (NEGATIVE); RBC, URINE AUTO 133 /HPF (0-3); SPECIFIC GRAVITY URINE AUTO 1.025 (1.002-1.035); SQUAMOUS EPITHELIAL CELL UR AU 9 /HPF (0-6); UROBILINOGEN, URINE AUTO 0.2 mg/dL (0.0-2.0); WBC, URINE AUTO 5 /HPF (0-3)
== END ==
LOC: M LAB REF 16:18
PROVIDERS: ATTEND Physician Assistant Medical
DX: R30.0 Dysuria (principal)

== ENCOUNTER 2021-05-07 06:33 | Inpatient (IN) | payer BC, OTHER ==
[~2021-05-07] VITALS: Ht 170.2 cm; Wt 86.7 kg
[2021-05-07] MEDS ORDERED: SODIUM CHLORIDE 0.9% INJ 10 ML SYR IV PRN (07:20)
[2021-05-07] MEDS: SODIUM CHLORIDE 0.9% INJ 10 ML SYR IV SCH ×3 (07:40→10:42)
[2021-05-07 08:01] LABS: BASO % 0.2 % (0.0-1.0); HEMATOCRIT 40.9 % (36.0-47.0); HEMOGLOBIN 13.5 g/dl (12.0-15.5); LYMPH # 0.6 10^3/uL (1.5-5.0); LYMPH % 4.4 % (24.0-44.0); MEAN CORPUSCULAR HEMOGLOBIN 28.5 pg (27.0-33.0); MEAN CORPUSCULAR VOLUME 86.3 fl (80.0-96.0); MONO # 0.2 10^3/uL (0.0-0.8); MONO % 1.9 % (2.0-8.0); NEUTROPHILS # 11.5 10^3/uL (1.5-8.5); NEUTROPHILS % 93.1 % (36.0-66.0); PLATELET COUNT, AUTOMATED 362 10^3/uL (150-450); RED BLOOD COUNT 4.74 10^6/uL (4.00-5.40); WHITE BLOOD COUNT 12.4 10^3/uL (4.0-10.0)
[2021-05-07 08:24] LABS: ALBUMIN 4.4 GM/DL (3.2-5.2); ALT/SGPT 32 U/L (12-78); BILIRUBIN,DIRECT 0.1 MG/DL (0.0-0.2); BILIRUBIN,TOTAL 0.5 MG/DL (0.2-1.0); BLOOD UREA NITROGEN 14 MG/DL (7-18); CARBON DIOXIDE LEVEL 25 MEQ/L (21-32); CHLORIDE LEVEL 105 MEQ/L (98-107); GLOMERULAR FILTRATION RATE > 60.0 (>58); GLUCOSE, FASTING 178 MG/DL (70-100); LIPASE 191 U/L (73-393); POTASSIUM SERUM 3.9 MEQ/L (3.5-5.1); SODIUM LEVEL 141 MEQ/L (136-145); TOTAL PROTEIN 7.9 GM/DL (6.4-8.2)
[2021-05-07] MEDS ORDERED: HALOPERIDOL 5MG/ML VIAL (J1630 PER 1) IV ONE (08:45)
[2021-05-07] MEDS: levETIRAcetam ORAL SOLUTION 500 MG/5 ML UDC GT SCH ×2 (09:00→22:37)
[2021-05-07] MEDS ORDERED: ISOVUE-370 76% 100ML VIAL As Ordered ONE (10:17)
--- NOTE | 2021-05-07 11:27 | REP ---
INDICATION: abd pain/vomiting r/o SBO. COMPARISON: 02/28/2021 CT TECHNIQUE: Bolus 100 mL Isovue 370 scanning through abdomen and pelvis with coronal and sagittal reconstructions. FINDINGS: CT abdomen: Lung bases without acute finding. Curvilinear fibrotic change posterior basal segment left lower lobe stable. No effusion or infiltrate. The heart is not enlarged. There is no pericardial thickening or effusion and no hiatal hernia. There is hepatomegaly with the liver having a vertical diameter of the 21 cm in the mid clavicular line. No focal hepatic mass or intrahepatic biliary dilatation. Lower density of the liver overall may reflect some fatty infiltration. No adjacent ascites. No splenomegaly or focal splenic lesion. Status post cholecystectomy. Pancreas shows no free focal lesion, biliary dilatation or adjacent fluid/adenopathy. The aorta has no aneurysm or dissection evident. Adrenal glands are normal. Kidneys show symmetric function and without stone, mass or cyst. Stomach shows evidence for prior gastric bypass surgery. There is a gastrostomy tube evident via paramedian approach. There is also a jejunostomy tube via percutaneous approach in the left upper quadrant. Proximal small bowel loops are mildly prominent that may reflect a focal ileus or partial obstruction. Mid to distal jejunum and the ileum are normal caliber. The colon is without abnormal distention, colitis or diverticulitis. No masses. No pathologic sized intra-abdominal adenopathy. Lung window review of all CT slices shows no perforation or free air. The bone windows show evidence of prior of L4 through S1 posterior fusion pedicle screws in arch bars. There is L4-5 and L5-S1 right hemilaminectomy also evident. Spine otherwise unremarkable. Visualized ribs intact. CT pelvis: Sacrum, SI joints, pelvis and hips without acute bony finding. Distal left colon sigmoid and rectum unremarkable. Distal small bowel loops intact. Patient is status post hysterectomy. I see no inflammatory changes about the cecum. No gross abnormality of the appendix. Bladder is without mass, wall thickening or stone no distal ureteral dilatation or stone. No pelvic free fluid. Patient is status post hysterectomy. No pelvic mass. No ventral or inguinal hernia. No inguinal adenopathy or pelvic adenopathy. IMPRESSION: Mildly prominent small bowel loops in the left upper quadrant that may reflect some focal ileus or partial small bowel obstruction with the mid to distal jejunum and ileum of normal caliber. There is no ascites, air-fluid levels masses or free air. No perforation or abscess. Gastrostomy and jejunostomy tubes unchanged. Prior gastric bypass surgery. Colon unremarkable. Hepatomegaly with a 21 cm vertical diameter of the liver in midclavicular line with fatty infiltration of the liver but no focal hepatic mass. Gallbladder surgically absent. The adrenal glands, kidneys, pancreas and spleen unremarkable. Prior hysterectomy. No pelvic abnormality. Status post L4 through S1 posterior fusion with right hemilaminectomy L4-5 and L5-S1. <Electronically signed by Matthew Zuniga > 05/07/21 1122
[2021-05-07] MEDS ORDERED: PROMETHAZINE INJ 25 MG/ML VIAL (J2550) IV PRN (12:35)
[2021-05-07] MEDS ORDERED: LEVE15SO2 GT (12:38)
[2021-05-07] MEDS ORDERED: DICL1GEL3 TOP (12:38)
[2021-05-07] MEDS ORDERED: ATIV1TAB10 GT (12:40)
[2021-05-07] MEDS ORDERED: oxyCODONE 5MG TAB GT PRN (13:10)
[2021-05-07] MEDS ORDERED: LORazepam 0.5 MG TAB GT PRN (13:10)
--- NOTE | 2021-05-07 13:14 | HPEPDOC ---
[facility] Medical History & Physical Date of Admission May 07, 2021 Date of Service: May 07, 2021 History and Physical Chief complaint: Who presented to the ER with nausea, vomiting and abdominal discomfort History of present illness: Patient is a 41-year-old female with a PMHx significant for Gastric bypass (w/ reversal and J tube placement, followed by additional G tube placement, on chronic TPN for severe gastroparesis) who presented to the hospital with symptoms of nausea, vomiting, abdominal discomfort. Patient reported that yesterday evening she had potatoes began experiencing nausea, vomiting, abdominal discomfort. Patient has reported greater than 10 episodes of vomiting described as dark bile-like denies any blood in her vomit. Patient reports that shes experiencing diffuse abdominal discomfort rated as 8/10, nonradiating, occurring continuously without any alleviating or aggravating factors. Patient denies any chest pain, shortness breath, palpitations or cough. Patient denies any constipation, diarrhea, or urinary discomfort. Patient reports that at home. She has expressed a fever of 101F measured temp orally. She reported some chills while at home as well. Patient notes that typically she does not eat and is on chronic TPN nutrition. Past Medical History: Gastric bypass surgery (2008) with complications and reversal (2018); J tube placement (2018), G tube placement (2019) Severe gastroparesis (on chronic TPN) Short gut syndrome GERD Chronic back and abdominal pain Depression / Anxiety Iron deficiency anemia (requiring transfusions) Protein S deficiency on Lovenox therapeutic Hx of thrombocytosis Hx of recurrent SBO Hx of recurrent GI bleed Past Surgical History: Power PICC placement right chest 02/2020 Back surgery Tonsillectomy Gastric bypass with later reversal Endometrial ablation Hysterectomy Hubbard catheter Right leg wound drained Left subclavian port placed, removed J-tube placement Removal of G-tube Placement subclavian port with removal in 2018 PICC line placed in 2018 Bowel resection Allergies: See below Medications: See below Family History: - Father with a history of high blood pressure. 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 [employer] Review of Systems: 10 point review of systems complete, all negative otherwise stated in HPI Physical exam: - Vitals: BP [141/69], HR [79], RR [18], Sat [99%RA], Temp [98.9F] - General: Sitting up in bed, Reports nausea and is holding a vomit bag, AAOx3 - HEENT: NC, AT, PERRLA - CVS: RRR, +S1S2 - Lungs: Fair air entry bilaterally, No appreciable wheezing / rales / rhonchi - Abdomen: Soft, Non-distended, diffuse tenderness, no guarding / rigidity, + G tube, + J tube (mild erythema around site - patient and significant other report this is chronic) - Extremities: No lower extremity edema, No calf tenderness, R arm PICC line - Neuro: No focal motor or sensory deficit - Skin: No visible rashes Labs: See below Imaging: CT abdomen / pelvis 05/07: Mildly prominent small bowel loops in the left upper quadrant that may reflect some focal ileus or partial small bowel obstruction with the mid to distal jejunum and ileum of normal caliber. There is no ascites, air-fluid levels masses or free air. No perforation or abscess. Gastrostomy and jejunostomy tubes unchanged. Prior gastric bypass surgery. Colon unremarkable. Hepatomegaly with a 21 cm vertical diameter of the liver in midclavicular line with fatty infiltration of the liver but no focal hepatic mass. Gallbladder surgically absent. The adrenal glands, kidneys, pancreas and spleen unremarkable. Prior hysterectomy. No pelvic abnormality. Status post L4 through S1 posterior fusion with right hemilaminectomy L4-5 and L5-S1. EKG: See below Assessment and Plan: Nausea / Vomiting / Abdominal discomfort - possibly 2/2 gastroparesis, possibly 2/2 ileus, less likely 2/2 SBO - Patient reported that she had potatoes yesterday evening and began experiencing symptoms soon after - Has reported several episodes of nausea, vomiting and diffuse abdominal discomfort - Physical reveals diffuse abdominal discomfort without guarding, rigidity - Mild leukocytosis - Imaging noted above - Will set G-tube to gravity - Patient nothing by mouth status - c/w Anti-emetics - c/w TPN nutrition - Discussed with surgery; will continue with conservative measures for now Gastric bypass surgery (2008) with complications and reversal (2018) - J tube placement (2018) - G tube placement (2019) Severe gastroparesis / Short gut syndrome - c/w chronic TPN - c/w Antiemetics Chronic back and abdominal pain - c/w Oxycodone Depression / Anxiety - c/w Fluoxetine / Ativan Iron deficiency anemia - Requiring transfusions Protein S deficiency - c/w Lovenox therapeutic Hx of thrombocytosis Hx of recurrent SBO GERD - Hx of recurrent GI bleed - c/w Protonix DVT prophylaxis - Will c/w full anticoagulation with Lovenox Vital Signs Vital Signs Date Time Temp Pulse Resp B/P (MAP) Pulse Ox O2 Delivery O2 Flow Rate FiO2 05/07/21 12:30 79 18 141/69 (93) 05/07/21 12:15 99 Room Air 05/07/21 06:34 98.9 Laboratory Data Labs 24H Laboratory Tests 2 05/07/21 07:41: Immature Granulocyte % (Auto) 0.4, Neutrophils (%) (Auto) 93.1H, Lymphocytes (%) (Auto) 4.4L, Monocytes (%) (Auto) 1.9L, Eosinophils (%) (Auto) 0.0, Basophils (%) (Auto) 0.2, Neutrophils # (Auto) 11.5H, Lymphocytes # (Auto) 0.6L, Monocytes # (Auto) 0.2, Eosinophils # (Auto) 0.0, Basophils # (Auto) 0.0, Nucleated Red Blood Cells % (auto) 0.0, Anion Gap 11, Glomerular Filtration Rate > 60.0, Calcium Level 10.0, Total Bilirubin 0.5, Direct Bilirubin 0.1, Aspartate Amino Transf (AST/SGOT) 16, Alanine Aminotransferase (ALT/SGPT) 32, Alkaline Phosphatase 121H, Total Protein 7.9, Albumin 4.4, Albumin/Globulin Ratio 1.3, Lipase 191 CBC/BMP Laboratory Tests 05/07/21 07:41 Microbiology Microbiology 05/07/21 Respiratory Virus Panel (PCR) ([facility]) - Final, Complete Home Medications Scheduled Diphenhydramine HCl (Diphenhydramine HCl) 50 Mg/1 Ml Vial, 50 MG IV BID THROUGH HUBBARD CATHETER Enoxaparin Sodium (Lovenox) 60 Mg/0.6 Ml Syringe, 60 MG SC DAILY Fluoxetine Hcl (Fluoxetine HCl) 20 Mg Capsule, 20 MG GT DAILY Levetiracetam (Levetiracetam) 500 Mg/5 Ml Solution, 1,000 MG GT BID Pantoprazole Sodium (Pantoprazole Sodium) 40 Mg Vial, 40 MG IV BID THROUGH HUBBARD CATHETER Zolpidem Tartrate (Zolpidem Tartrate ER) 12.5 Mg Tab.mphase, 12.5 MG GT QHS [Tpn] , 1 DOSE IV QHS RUN FOR 14 HOURS Scheduled PRN Diclofenac Sodium (Diclofenac Sodium) 1% 100GM Gel..gram., 2 GM TOP BID PRN for PAIN APPLY TO RIGHT HIP Lorazepam (Ativan) 0.5 Mg Tablet, 0.5 MG GT TID PRN for ANXIETY Ondansetron (Ondansetron HCl) 2 Mg/1 Ml Vial, 4 MG IV BID PRN for NAUSEA OR VOMITING THROUGH HUBBARD CATHETER Oxycodone HCl (Oxycodone HCl) 20 Mg/1 Ml Oral.conc, 2 ML PO Q4H PRN for PAIN 1.5ML-2ML PER RX Allergies Coded Allergies: Sulfa (Sulfonamide Antibiotics) (Verified Allergy, Severe, RESP. PROBLEMS, SWELLING, HIVES, 06/28/20) butorphanol (Verified Allergy, Severe, HIVES/RESP. PROBLEMS (PERCOCET AND TYL#3 OK), 06/28/20) HAS HAD MORPHINE AND DILAUDID IN THE PAST levofloxacin (Verified Allergy, Severe, THROAT SWELLING/HIVES, 06/28/20) tomato (Verified Allergy, Severe, RESP. PROBLEMS, HIVES, 06/28/20) tramadol (Verified Allergy, Severe, SOB - HAS HAD MORPHINE AND DILAUDID IN THE PAST, 06/28/20) scopolamine (Verified Adverse Reaction, Intermediate, VISION LOSS, 06/28/20) NSAIDS (Non-Steroidal Anti-Inflamma (Verified Adverse Reaction, Mild, GASTRIC BYPASS, 06/28/20) EMANI HINES MD May 07, 2021 13:14
[2021-05-07] MEDS ORDERED: NS 1,000 ML IV SCH (13:20)
[2021-05-07] MEDS: diphenhydrAMINE 50MG/ML VIAL (J1200) IV SCH ×2 (13:34→21:29)
[2021-05-07] MEDS: ENOXAPARIN 60MG/0.6ML SYRINGE (J1650 PER 10MG) SC SCH (13:35)
[2021-05-07] MEDS: PANTOPRAZOLE 40MG VIAL (C9113 PER 1) IV SCH ×2 (13:35→21:29)
[2021-05-07] MEDS: FLUoxetine 20 MG CAP GT SCH (14:42)
[2021-05-07 15:10] VITALS: BP 152/79
[2021-05-07] MEDS: oxyCODONE 5MG TAB GT PRN (17:50)
[2021-05-07] MEDS: METOCLOPRAMIDE INJ 10MG/2ML VIAL (J2765 PER 1) IV PRN (17:51)
[2021-05-07] MEDS: HumaLOG INSULIN (NovoLOG) PER UNIT SC SCH (17:51)
[2021-05-07] MEDS ORDERED: FAT EMULSION IV 20% 500 ML IV SCH (18:00)
[2021-05-07] MEDS ORDERED: AMINO AC/ELECTROLYTE/DEX/CALC 2,000 ML IV SCH (18:00)
--- NOTE | 2021-05-07 19:53 | ECGEPIP ---
[facility] Test Date: 2021-05-07 Pat Name: NI RICHMOND Department: Room: [place] [address] Gender: Female Telephone Ad Taker: cary : 1980 Requested By: EMANI HINES Order Number: [id number] Reading MD: Dylon Johnson Measurements Intervals [place] Rate: 62 P: 45 IN: 124 QRS: 47 QRSD: 72 T: 40 QT: 454 QTc: 460 Interpretive Statements Normal sinus rhythm Normal EKG No significant change when compared to prior tracing of 03/01/2021 Electronically Signed on 05-07-2021 19:53:15 EDT by Dylon Johnson
[2021-05-07] MEDS: zolPIDEM TARTRATE 5 MG TAB TF SCH (21:29)
[2021-05-07] MEDS ORDERED: ACETAMINOPHEN 650 MG SUPP PR PRN (21:50)
[2021-05-07 22:00] VITALS: BP 166/85
[2021-05-08] MEDS: METOCLOPRAMIDE INJ 10MG/2ML VIAL (J2765 PER 1) IV PRN ×4 (00:02→18:09)
[2021-05-08] MEDS: oxyCODONE 5MG TAB GT PRN ×5 (00:03→18:10)
[2021-05-08] MEDS: ACETAMINOPHEN 325 MG/10.15 ML UDC GT PRN (00:16)
[2021-05-08] MEDS: HumaLOG INSULIN (NovoLOG) PER UNIT SC SCH ×4 (00:17→18:09)
[2021-05-08 05:22] LABS: BASO % 0.3 % (0.0-1.0); HEMATOCRIT 40.4 % (36.0-47.0); LYMPH # 0.8 10^3/uL (1.5-5.0); LYMPH % 8.9 % (24.0-44.0); MEAN CORPUSCULAR HEMOGLOBIN 28.2 pg (27.0-33.0); MEAN CORPUSCULAR HGB CONC 32.2 g/dl (32.0-36.5); MEAN CORPUSCULAR VOLUME 87.6 fl (80.0-96.0); MONO % 10.4 % (2.0-8.0); NEUTROPHILS # 7.6 10^3/uL (1.5-8.5); NEUTROPHILS % 80.1 % (36.0-66.0); PLATELET COUNT, AUTOMATED 354 10^3/uL (150-450); RED BLOOD COUNT 4.61 10^6/uL (4.00-5.40); WHITE BLOOD COUNT 9.4 10^3/uL (4.0-10.0)
[2021-05-08 05:48] LABS: BLOOD UREA NITROGEN 20 MG/DL (7-18); CALCIUM LEVEL 9.4 MG/DL (8.5-10.1); CARBON DIOXIDE LEVEL 29 MEQ/L (21-32); CHLORIDE LEVEL 106 MEQ/L (98-107); CREATININE FOR GFR 0.75 MG/DL (0.55-1.30); GLOMERULAR FILTRATION RATE > 60.0 (>58); GLUCOSE, FASTING 147 MG/DL (70-100); MAGNESIUM LEVEL 2.5 MG/DL (1.8-2.4); POTASSIUM SERUM 3.6 MEQ/L (3.5-5.1); SODIUM LEVEL 142 MEQ/L (136-145)
[2021-05-08 06:00] VITALS: BP 126/72
--- NOTE | 2021-05-08 08:15 | REP ---
INDICATION: Fever. COMPARISON: CT 05/07/2021 TECHNIQUE: PA chest with two-view abdomen FINDINGS: PA chest right upper extremity PICC line with tip in SVC. Lungs are well inflated without infiltrate or effusion. Heart, mediastinal and hilar contours are normal. The aorta and airway are intact. I see no free air under the diaphragm. Visualized bones intact. Abdomen: Gastrostomy and jejunostomy tubes in the left upper quadrant as before. Surgical clips right upper quadrant, left upper quadrant and anastomotic sutures from prior gastric surgery. Prior lower lumbar posterior fusion hardware as before. The gas pattern is nonspecific. I do not see dilated bowel loops or air-fluid levels. No evidence of mass. No abnormal calcifications. Visualized bones without acute finding. IMPRESSION: 1. Nonspecific gas pattern without obstruction, mass, free air or other acute intra-abdominal finding. 2. Gastrostomy and jejunostomy tubes, surgical clips and lumbar fusion hardware as before. 3. No abnormal calcifications or acute bony findings. <Electronically signed by Matthew Zuniga > 05/08/21 [id number]
--- NOTE | 2021-05-08 09:16 | IPNPDOC ---
Text Note Date of Service The patient was seen on 05/08/21. NOTE Subjective: Patient is a 41-year-old female with a PMHx significant for Gastric bypass (w/ reversal and J tube placement, followed by additional G tube p lacement, on chronic TPN for severe gastroparesis) who presented to the hospital with symptoms of nausea, vomiting, abdominal discomfort. Patient reported that yesterday evening she had potatoes began experiencing nausea, vomiting, abdominal discomfort. Patient has reported greater than 10 episodes of vomiting described as dark bile-like denies any blood in her vomit. Patient was admitted to hospitalist service for further evaluation and treatment. Patient was seen and examined at the bedside. Currently reports that their nausea has improved. Still reports some diffuse abdominal discomfort. Denies any CP, SOB or palpitations. Denies any diarrhea or urinary discomfort. Objective: Vitals (See below) General: Sitting up in chair, appears comfortable, AAOx3 HEENT: NC, AT CVS: +S1S2 Lungs: Fair air entry b/l, -w/r/r Abdomen: Soft, ND, diffuse tenderness, + G and J tube Extremities: - Edema, - Calf tenderness Imaging: CT abdomen / pelvis 05/07: Mildly prominent small bowel loops in the left upper quadrant that may reflect some focal ileus or partial small bowel obstruction with the mid to distal jejunum and ileum of normal caliber. There is no ascites, air-fluid levels masses or free air. No perforation or abscess. Gastrostomy and jejunostomy tubes unchanged. Prior gastric bypass surgery. Colon unremarkable. Hepatomegaly with a 21 cm vertical diameter of the liver in midclavicular line with fatty infiltration of the liver but no focal hepatic mass. Gallbladder surgically absent. The adrenal glands, kidneys, pancreas and spleen unremarkable. Prior hysterectomy. No pelvic abnormality. Status post L4 through S1 posterior fusion with right hemilaminectomy L4-5 and L5-S1. Assessment and Plan: Nausea / Vomiting / Abdominal discomfort - possibly 2/2 gastroparesis, possibly 2/2 ileus, less likely 2/2 SBO - Patient reported that she had potatoes yesterday evening and began experiencing symptoms soon after - Currently denies any nausea, still reports some abdominal discomfort - Physical with diffuse tenderness, but again remains without rigidity / rebound - s/p Leukocytosis - Imaging noted above - c/w NPO adn TPN nutrition - c/w Anti-emetics - Had discussed with surgery initially - Will get XR abdomen Fever - Will check septic workup - Will check blood cultures (including from PICC line), UA, CXR / AXR Gastric bypass surgery (2008) with complications and reversal (2018) - J tube placement (2018) - G tube placement (2019) Severe gastroparesis / Short gut syndrome - c/w chronic TPN - c/w Antiemetics Chronic back and abdominal pain - c/w Oxycodone Depression / Anxiety - c/w Fluoxetine / Ativan Iron deficiency anemia - Requiring transfusions Protein S deficiency - c/w Lovenox therapeutic Hx of thrombocytosis Hx of recurrent SBO GERD - Hx of recurrent GI bleed - c/w Protonix DVT prophylaxis - c/w full anticoagulation with Lovenox Disposition: - Awaiting clinical improvement VS,Joel, I+O VSJoel, I+O Laboratory Tests 05/08/21 05:04 Vital Signs Date Time Temp Pulse Resp B/P (MAP) Pulse Ox O2 Delivery O2 Flow Rate FiO2 05/08/21 06:00 99.6 56 16 126/72 (90) 95 Room Air I&O- Last 24 Hours up to 6 AM 05/08/21 05:59 Intake Total 440 ml Output Total 0 ml Balance 440 ml EMANI HINES MD May 08, 2021 09:16
[2021-05-08 09:18] LABS: C REACTIVE PROTEIN QUANTITATIV < 0.30 MG/DL (0.00-0.30)
[2021-05-08 09:27] LABS: ERYTHROCYTE SEDIMENTATION RATE 10 mm/hr (0-20)
[2021-05-08] MEDS: ENOXAPARIN 60MG/0.6ML SYRINGE (J1650 PER 10MG) SC SCH (09:40)
[2021-05-08] MEDS: diphenhydrAMINE 50MG/ML VIAL (J1200) IV SCH ×2 (09:40→20:44)
[2021-05-08] MEDS: levETIRAcetam ORAL SOLUTION 500 MG/5 ML UDC GT SCH ×2 (09:40→20:44)
[2021-05-08] MEDS: PANTOPRAZOLE 40MG VIAL (C9113 PER 1) IV SCH ×2 (09:40→20:44)
[2021-05-08] MEDS: FLUoxetine 20 MG CAP GT SCH (09:40)
[2021-05-08 14:00] VITALS: BP 149/83
[2021-05-08] MEDS ORDERED: AMINO AC/ELECTROLYTE/DEX/CALC 2,000 ML IV SCH (18:00)
[2021-05-08] MEDS ORDERED: FAT EMULSION IV 20% 500 ML IV SCH (18:00)
[2021-05-08] MEDS: zolPIDEM TARTRATE 5 MG TAB TF SCH (20:44)
[2021-05-08 22:00] VITALS: BP 103/58
[2021-05-09] MEDS: METOCLOPRAMIDE INJ 10MG/2ML VIAL (J2765 PER 1) IV PRN ×4 (00:18→12:15)
[2021-05-09] MEDS: oxyCODONE 5MG TAB GT PRN ×5 (00:18→20:28)
[2021-05-09] MEDS: HumaLOG INSULIN (NovoLOG) PER UNIT SC SCH ×4 (00:30→18:00)
[2021-05-09 05:00] VITALS: BP 133/86
--- NOTE | 2021-05-09 05:23 | IPNPDOC ---
Subjective Date Seen The patient was seen on 05/09/21. Subjective Chief Complaint/HPI Chief complaint: Seizure-like activity. Called to bedside with rapid response with RN, noting patient having some seizure like tremors and shakes. She had complained of severe nausea and been found in the bathroom just prior to this incident. She was assisted back to bed and was alert and oriented. RN had exited the room and had actually messaged me to ask for some Zofran. When she returned to bedside. The patient was in bed and appeared to be unresponsive with right arm drawing up to her forehead with tremors. Rapid response was called. Objective Physical Examination Other physical findings Patient lying in bed upon entry to the room and eyes were following people in the room. She would not respond verbally but appeared to be aware. Eventually she would respond but was nonsensical. She was following some commands. Again eyes would focus when her name was called and then she would become unfocused. She repeated the movements with right arm drawing up to her forehead and both arms exhibiting some tremor-like activity. Some tremor-like movement in the legs. Movement of the arms appeared to be intentional. Blood pressure 137/86. Heart rate 61, Respirations 16, O2 sat 95% on room air. Temp 99.0. Blood glucose 223 Assessment /Plan Assessment 1. Nonepileptic seizure activity with patient having a history of psychogenic nonepileptic seizures. Will check pro-calcitonin. Vital signs stable. Blood glucose as noted. Patient to follow-up with neurology as outpatient. 2. Nausea, vomiting, abdominal discomfort, possibly secondary to gastroparesis versus ileus versus less likely small bowel obstruction. Patient is continued on TPN and is nothing by mouth. Will continue with antiemetics with Zofran added. Case discussed with Dr. Lewis. Plan/VTE VTE Prophylaxis Ordered?: Yes VS, I&O, 24H, Fishbone Vital Signs/I&O Vital Signs Date Time Temp Pulse Resp B/P (MAP) Pulse Ox O2 Delivery O2 Flow Rate FiO2 05/09/21 04:46 18 Room Air 05/08/21 22:00 98.1 75 103/58 (73) 95 I&O- Last 24 Hours up to 6 AM 05/09/21 06:00 Intake Total 1360 ml Output Total 50 ml Balance 1310 ml Laboratory Data 24H LABS Laboratory Tests 2 05/08/21 11:40: Bedside Glucose (Misc Panel) 174H 05/08/21 13:54: Urine Color YELLOW, Urine Appearance HAZY, Urine pH 6.0, Urine Specific [place] 1.033, Urine Protein 3+H, Urine Glucose (UA) NEGATIVE, Urine Ketones NEGATIVE, Urine Blood NEGATIVE, Urine Nitrite NEGATIVE, Urine Bilirubin NEGATIVE, Urine Urobilinogen 4.0H, Urine Leukocyte Esterase NEGATIVE, Urine WBC (Auto) 1, Urine RBC (Auto) 1, Urine Hyaline Casts (Auto) 0, Urine Bacteria (Auto) NEGATIVE, Urine Squamous Epithelial Cells 5, Urine Mucus (Auto) SMALL, Urine Sperm (Auto) 05/08/21 16:30: Bedside Glucose (Misc Panel) 162H 05/09/21 00:26: Bedside Glucose (Misc Panel) 150H 05/09/21 05:10: Bedside Glucose (Misc Panel) 223H Microbiology Microbiology 05/08/21 Blood Culture, Received Pending 05/07/21 Respiratory Virus Panel (PCR) ([facility]) - Final, Complete COLLEEN PHELPS May 09, 2021 05:23
[2021-05-09 05:25] LABS: BASO % 0.4 % (0.0-1.0); EOS % 0.2 % (0.0-3.0); HEMATOCRIT 39.8 % (36.0-47.0); LYMPH # 0.9 10^3/uL (1.5-5.0); LYMPH % 9.3 % (24.0-44.0); MEAN CORPUSCULAR HEMOGLOBIN 28.4 pg (27.0-33.0); MEAN CORPUSCULAR HGB CONC 32.7 g/dl (32.0-36.5); MEAN CORPUSCULAR VOLUME 87.1 fl (80.0-96.0); MONO # 0.5 10^3/uL (0.0-0.8); MONO % 5.5 % (2.0-8.0); NEUTROPHILS # 8.2 10^3/uL (1.5-8.5); NEUTROPHILS % 84.3 % (36.0-66.0); PLATELET COUNT, AUTOMATED 310 10^3/uL (150-450); RED BLOOD COUNT 4.57 10^6/uL (4.00-5.40); WHITE BLOOD COUNT 9.7 10^3/uL (4.0-10.0)
[2021-05-09 05:59] LABS: BLOOD UREA NITROGEN 25 MG/DL (7-18); CALCIUM LEVEL 9.3 MG/DL (8.5-10.1); CARBON DIOXIDE LEVEL 25 MEQ/L (21-32); CHLORIDE LEVEL 105 MEQ/L (98-107); CREATININE FOR GFR 0.88 MG/DL (0.55-1.30); GLOMERULAR FILTRATION RATE > 60.0 (>58); GLUCOSE, FASTING 221 MG/DL (70-100); MAGNESIUM LEVEL 2.3 MG/DL (1.8-2.4); POTASSIUM SERUM 3.9 MEQ/L (3.5-5.1); SODIUM LEVEL 140 MEQ/L (136-145)
[2021-05-09 06:00] VITALS: BP 161/95
[2021-05-09] MEDS: PANTOPRAZOLE 40MG VIAL (C9113 PER 1) IV SCH ×2 (08:19→20:23)
[2021-05-09] MEDS: ENOXAPARIN 60MG/0.6ML SYRINGE (J1650 PER 10MG) SC SCH (08:20)
[2021-05-09] MEDS: levETIRAcetam ORAL SOLUTION 500 MG/5 ML UDC GT SCH ×2 (08:20→20:23)
[2021-05-09] MEDS: diphenhydrAMINE 50MG/ML VIAL (J1200) IV SCH ×2 (08:20→20:24)
[2021-05-09] MEDS: FLUoxetine 20 MG CAP GT SCH (09:14)
[2021-05-09] MEDS: ONDANSETRON 4MG/2ML VIAL IV PRN ×3 (09:14→20:28)
[2021-05-09] MEDS ORDERED: LORazepam 2 MG/ML VIAL As Ordered ONE (14:41)
--- NOTE | 2021-05-09 15:36 | REP ---
INDICATION: head trama. COMPARISON: Comparison CT study of the brain is from April 02, 2019.. TECHNIQUE: Helical scanning is acquired. 5 mm axial images were reformatted. Coronal MPR images were generated. FINDINGS: Bone window settings demonstrate an intact bony calvarium. There is no evidence of skull fracture or incidental bony calvarial lesion. The visualized paranasal sinuses appear clear. No intraorbital abnormality is seen. On soft tissue window setting images; the lateral, third, and fourth ventricles are normal in size and position. Hinton-white differentiation pattern is normal above and below the tentorium. There are is no evidence of intracranial hemorrhage. No mass, edema, infarction, or midline shift is seen. No extra-axial fluid collection is appreciated. IMPRESSION: Negative noncontrast head CT. <Electronically signed by Donald Valdez > 05/09/21 [id number]
[2021-05-09] MEDS: ACETAMINOPHEN 325 MG/10.15 ML UDC GT PRN (16:13)
[2021-05-09] MEDS ORDERED: FAT EMULSION IV 250 ML IV SCH (18:00)
[2021-05-09] MEDS ORDERED: AMINO AC/ELECTROLYTE/DEX/CALC 2,000 ML IV SCH (18:00)
[2021-05-09] MEDS: zolPIDEM TARTRATE 5 MG TAB TF SCH (20:24)
[2021-05-09 22:00] VITALS: BP 163/93
[2021-05-10] MEDS: HumaLOG INSULIN (NovoLOG) PER UNIT SC SCH ×3 (00:32→12:52)
[2021-05-10] MEDS: ONDANSETRON 4MG/2ML VIAL IV PRN ×4 (01:15→18:10)
[2021-05-10] MEDS: METOCLOPRAMIDE INJ 10MG/2ML VIAL (J2765 PER 1) IV PRN ×4 (02:14→18:59)
[2021-05-10] MEDS: oxyCODONE 5MG TAB GT PRN ×3 (03:29→13:31)
[2021-05-10] MEDS ORDERED: NS 1,000 ML IV ONE (03:55)
[2021-05-10] MEDS ORDERED: HYDROMORPHONE HCL 0.5 MG/ 0.5 ML SYRINGE (J1170 PER 1) IV ONE (03:56)
--- NOTE | 2021-05-10 04:47 | IPNPDOC ---
Text Note Date of Service The patient was seen on 05/10/21. NOTE Alerted by nursing staff at approx 0315 that patient had put herself on the f moises in the bathroom and was displaying "seizure-type" activity which included right arm rhythmic movements and unresponsiveness. Saw and examined the patient at this time who had stable vitals and blood glucose wnl. Patient soon became responsive to verbal stimuli and complained of severe generalized abdominal pain. Physical exam unremarkable. Patient was moved to the bed and prn oxycodone was given to no relief. One time dilaudid and 1L ns fluid bolus given. f/u kub ordered to r/o obstruction VS,Fishbone, I+O VS, Fishbone, I+O Laboratory Tests 05/09/21 05:19 Vital Signs Date Time Temp Pulse Resp B/P (MAP) Pulse Ox O2 Delivery O2 Flow Rate FiO2 05/10/21 04:32 18 05/09/21 22:00 99.3 63 163/93 (116) 98 Room Air I&O- Last 24 Hours up to 6 AM 05/10/21 06:00 Intake Total 1560 ml Balance 1560 ml JENNA FERRARA May 10, 2021 04:47
[2021-05-10 06:00] VITALS: BP 106/59
[2021-05-10 06:48] LABS: BASO % 0.5 % (0.0-1.0); EOS % 0.1 % (0.0-3.0); HEMATOCRIT 36.3 % (36.0-47.0); HEMOGLOBIN 11.9 g/dl (12.0-15.5); LYMPH # 1.2 10^3/uL (1.5-5.0); LYMPH % 15.2 % (24.0-44.0); MEAN CORPUSCULAR HEMOGLOBIN 28.5 pg (27.0-33.0); MEAN CORPUSCULAR HGB CONC 32.8 g/dl (32.0-36.5); MEAN CORPUSCULAR VOLUME 86.8 fl (80.0-96.0); MONO # 0.7 10^3/uL (0.0-0.8); MONO % 9.3 % (2.0-8.0); NEUTROPHILS # 5.7 10^3/uL (1.5-8.5); NEUTROPHILS % 74.4 % (36.0-66.0); PLATELET COUNT, AUTOMATED 304 10^3/uL (150-450); RED BLOOD COUNT 4.18 10^6/uL (4.00-5.40); WHITE BLOOD COUNT 7.6 10^3/uL (4.0-10.0)
--- NOTE | 2021-05-10 06:59 | REPVR ---
PROCEDURE INFORMATION: Exam: XR Abdomen Exam date and time: 05/10/2021 4:07 AM Age: 41 years old Clinical indication: Abdominal pain; Generalized; Prior surgery; Surgery date: 6+ months; Surgery type: Gastric bypass; Additional info: Severe abd pain, R/O obstruction TECHNIQUE: Imaging protocol: XR of the abdomen. Views: Frontal supine view of the abdomen. 1 View. COMPARISON: CT ABD/PEL W/IV CONTRAST ONLY 05/07/2021 10:28 AM FINDINGS: Tubes, catheters and devices: Posterior transpediculate fixation screws and rods are present bilaterally at L4 through S1, with intervertebral spacers in situ at L4/L5 and L5/S1. Gastrointestinal tract: No evidence of significant ileus or bowel obstruction. Intraperitoneal space: Multiple surgical clips in both left and right upper abdomen, together with questionable surgical drains in the left side abdomen and a PEG tube in situ. Bones/joints: Unremarkable. IMPRESSION: 1. Multiple surgical clips in both left and right upper abdomen, together with questionable surgical drains in the left side abdomen and a PEG tube in situ. 2. No evidence of significant ileus or bowel obstruction. 3. Posterior transpediculate fixation screws and rods are present bilaterally at L4 through S1, with intervertebral spacers in situ at L4/L5 and L5/S1. Electronically signed by: Clarence Barton On 05/10/2021 06:59:17 AM
[2021-05-10 07:05] LABS: BLOOD UREA NITROGEN 17 MG/DL (7-18); CALCIUM LEVEL 8.8 MG/DL (8.5-10.1); CARBON DIOXIDE LEVEL 27 MEQ/L (21-32); CHLORIDE LEVEL 105 MEQ/L (98-107); CREATININE FOR GFR 0.61 MG/DL (0.55-1.30); GLOMERULAR FILTRATION RATE > 60.0 (>58); GLUCOSE, FASTING 173 MG/DL (70-100); MAGNESIUM LEVEL 2.3 MG/DL (1.8-2.4); POTASSIUM SERUM 3.7 MEQ/L (3.5-5.1); SODIUM LEVEL 139 MEQ/L (136-145)
[2021-05-10] MEDS: FLUoxetine 20 MG CAP GT SCH (08:39)
[2021-05-10] MEDS: levETIRAcetam ORAL SOLUTION 500 MG/5 ML UDC GT SCH (08:39)
[2021-05-10] MEDS: PANTOPRAZOLE 40MG VIAL (C9113 PER 1) IV SCH (08:39)
[2021-05-10] MEDS: diphenhydrAMINE 50MG/ML VIAL (J1200) IV SCH ×2 (08:39→18:27)
[2021-05-10] MEDS: ENOXAPARIN 60MG/0.6ML SYRINGE (J1650 PER 10MG) SC SCH (08:40)
--- NOTE | 2021-05-10 12:14 | IPNPDOC ---
Subjective Date Seen The patient was seen on 05/09/21. Subjective Chief Complaint/HPI Patient was noted to have pseudoseizure early this morning, overnight note from nurse practitioner reviewed by me. She still complaining of pain. Objective Physical Examination General Exam: Positive: Alert, No Acute Distress Neck Exam: Positive: Supple Chest Exam: Positive: Clear to auscultation Heart Exam: Positive: Rate Normal Abdomen Exam: Positive: Normal bowel sounds, Soft, Tenderness (mild), Other (J and G-tube in place); Negative: Hepatospenomegaly Skin Exam: Positive: Nl turgor and temperature; Negative: Rash, Breakdown Neuro Exam: Positive: Normal Gait, Normal Speech, Cranial Nerves 3-12 NL, Reflexes 2+ Psych Exam: Positive: Mental status NL, Mood NL, Oriented x 3 Assessment /Plan Assessment Nausea / Vomiting / Abdominal discomfort - possibly 2/2 gastroparesis, possibly 2/2 ileus, less likely 2/2 SBO - c/w NPO adn TPN nutrition - c/w Anti-emetics - Had discussed with surgery initially - XR abdomen is normal Fever - septic workup looks normal so far Gastric bypass surgery (2009) with complications and reversal (2019) - J tube placement (2019) - G tube placement (2019) Severe gastroparesis / Short gut syndrome - c/w chronic TPN - c/w Antiemetics Chronic back and abdominal pain - c/w Oxycodone Depression / Anxiety - c/w Fluoxetine / Ativan Iron deficiency anemia - Requiring transfusions Protein S deficiency - c/w Lovenox therapeutic Hx of thrombocytosis Hx of recurrent SBO GERD - Hx of recurrent GI bleed - c/w Protonix DVT prophylaxis - c/w full anticoagulation with Lovenox Disposition: - Awaiting clinical improvement Plan/VTE VTE Prophylaxis Ordered?: Yes VS, I&O, 24H, Fishbone Vital Signs/I&O Vital Signs Date Time Temp Pulse Resp B/P (MAP) Pulse Ox O2 Delivery O2 Flow Rate FiO2 05/09/21 15:00 16 05/09/21 10:00 99.5 05/09/21 06:00 61 161/95 (117) 97 Room Air I&O- Last 24 Hours up to 6 AM 05/09/21 06:00 Intake Total 1360 ml Output Total 50 ml Balance 1310 ml Laboratory Data 24H LABS Laboratory Tests 2 05/08/21 16:30: Bedside Glucose (Misc Panel) 162H 05/09/21 00:26: Bedside Glucose (Misc Panel) 150H 05/09/21 05:10: Bedside Glucose (Misc Panel) 223H 05/09/21 05:19: Immature Granulocyte % (Auto) 0.3, Neutrophils (%) (Auto) 84.3H, Lymphocytes (%) (Auto) 9.3L, Monocytes (%) (Auto) 5.5, Eosinophils (%) (Auto) 0.2, Basophils (%) (Auto) 0.4, Neutrophils # (Auto) 8.2, Lymphocytes # (Auto) 0.9L, Monocytes # (Auto) 0.5, Eosinophils # (Auto) 0.0, Basophils # (Auto) 0.0, Nucleated Red Blood Cells % (auto) 0.0, Anion Gap 10, Glomerular Filtration Rate > 60.0, Calcium Level 9.3, Magnesium Level 2.3 05/09/21 11:39: Bedside Glucose (Misc Panel) 156H 05/09/21 14:53: Bedside Glucose (Misc Panel) 160H CBC/BMP Laboratory Tests 05/09/21 05:19 Microbiology Microbiology 05/08/21 Blood Culture - Preliminary, Resulted No growth after 24 hours . All specim... 05/07/21 Respiratory Virus Panel (PCR) ([facility]) - Final, Complete HENNY LU MD May 09, 2021 16:50
--- NOTE | 2021-05-10 12:19 | IPNPDOC ---
Subjective Date Seen The patient was seen on 05/10/21. Subjective Chief Complaint/HPI Patient had 2 further episodes yesterday where she fell to the ground while walking to bathroom afterwards she began striking herself and moaning no, no, no. During the first episode yesterday afternoon a rapid response was called. She had another episode earlier this morning with the complaints of severe abdominal pain, a KUB was done and showed no evidence of obstruction Objective Physical Examination General Exam: Positive: Alert, No Acute Distress Neck Exam: Positive: Supple Chest Exam: Positive: Clear to auscultation Heart Exam: Positive: Rate Normal Abdomen Exam: Positive: Normal bowel sounds, Soft, Other (J and G-tube in place); Negative: Hepatospenomegaly Skin Exam: Positive: Nl turgor and temperature; Negative: Rash, Breakdown Neuro Exam: Positive: Normal Gait, Normal Speech, Cranial Nerves 3-12 NL, Reflexes 2+ Psych Exam: Positive: Mental status NL, Mood NL, Oriented x 3 Assessment /Plan Assessment Nausea / Vomiting / Abdominal discomfort - possibly 2/2 gastroparesis, possibly 2/2 ileus, less likely 2/2 SBO - c/w NPO adn TPN nutrition - c/w Anti-emetics - repeat kub normal - consult psych - home in am if remains stable Fever - septic workup looks normal so far Gastric bypass surgery (2009) with complications and reversal (2019) - J tube placement (2019) - G tube placement (2019) Severe gastroparesis / Short gut syndrome - c/w chronic TPN - c/w Antiemetics Chronic back and abdominal pain - c/w Oxycodone Depression / Anxiety - c/w Fluoxetine / Ativan Iron deficiency anemia - Requiring transfusions Protein S deficiency - c/w Lovenox therapeutic Hx of thrombocytosis Hx of recurrent SBO GERD - Hx of recurrent GI bleed - c/w Protonix DVT prophylaxis - c/w full anticoagulation with Lovenox Disposition: - home in am Plan/VTE VTE Prophylaxis Ordered?: Yes VS, I&O, 24H, Fishbone Vital Signs/I&O Vital Signs Date Time Temp Pulse Resp B/P (MAP) Pulse Ox O2 Delivery O2 Flow Rate FiO2 05/10/21 09:14 16 05/10/21 06:00 96.8 77 106/59 (75) 96 Room Air I&O- Last 24 Hours up to 6 AM 7/21/21 06:00 Intake Total 1560 ml Balance 1560 ml Laboratory Data 24H LABS Laboratory Tests 2 05/09/21 14:53: Bedside Glucose (Misc Panel) 160H 05/09/21 17:05: Bedside Glucose (Misc Panel) 155H 05/09/21 21:19: Bedside Glucose (Misc Panel) 178H 05/09/21 23:51: Bedside Glucose (Misc Panel) 167H 05/10/21 03:19: Bedside Glucose (Misc Panel) 175H 05/10/21 06:16: Immature Granulocyte % (Auto) 0.5, Neutrophils (%) (Auto) 74.4H, Lymphocytes (%) (Auto) 15.2L, Monocytes (%) (Auto) 9.3H, Eosinophils (%) (Auto) 0.1, Basophils (%) (Auto) 0.5, Neutrophils # (Auto) 5.7, Lymphocytes # (Auto) 1.2L, Monocytes # (Auto) 0.7, Eosinophils # (Auto) 0.0, Basophils # (Auto) 0.0, Nucleated Red Blood Cells % (auto) 0.0, Anion Gap 7L, Glomerular Filtration Rate > 60.0, Calcium Level 8.8, Magnesium Level 2.3 05/10/21 06:44: Bedside Glucose (Misc Panel) 164H 05/10/21 11:25: Bedside Glucose (Misc Panel) 160H CBC/BMP Laboratory Tests 05/10/21 06:16 Microbiology Microbiology 05/08/21 Blood Culture - Preliminary, Resulted No Growth after 48 hours. All Specime... 05/07/21 Respiratory Virus Panel (PCR) ([facility]) - Final, Complete HENNY LU MD May 10, 2021 12:19
[2021-05-10 14:00] VITALS: BP 167/88
--- NOTE | 2021-05-10 17:42 | MHIPNPDOC ---
[facility] Progress Note Progress Note DATE OF SERVICE: 05/10/21 HISTORY: 42 year old female with h/o abdominal pain and vomiting who reports being admitted a few days ago for worsening of her symptoms. she says she has been dealing with these problems for some time now and she has felt frustrated about it but she denies feeling hopeless or helpless or feeling as if she would want to end her life. She denies previous suicide attempts although she admits to a h/o anxiety and depression that has been treated with fluoxetine 20 mgs PO daily for along time. She says she has had previous episodes of falls, where she doesn't remember what has happened and feeling confused on awakening. she says her Neurologist knows about these episodes, they are not new. Denies any recent stressors, recent triggers, denies worsening of her anxiety and depression. She says she would agree to have her fluoxetine increased to 30 mgs. VITAL SIGNS: See below. NEW TEST RESULTS: See below CURRENT MEDICATIONS: See below. MENTAL STATUS EXAMINATION: Patient is a 41-year old female, who is alert, . Speech: Is normal in r/t/v, spontaneous and fluent. Language skills are intact. Thought processes including: liner and coherent. Thought content: negative for SI/HI, negative for thought delusions, negative for self harm thoughts. Description of associations: intact, not loose Description of abnormal or psychotic thoughts: denies SI/HI, denies thought delusions, denies TAV hallucinations, she was not responding to internal s timuli. Judgment: fair. Insight: fair. Orientation: x 3. Recent and remote memory: intact. Attention span and concentration: she's not easily distracted. Language: no abnormalities observed. Fund of knowledge: average. Mood: sad/anxious. Affect: constricted. DIAGNOSES: 1. Unspecified depressive disorder. 2. Unspecified anxiety disorder. 3. R/O Functional Neurological Symptom Disorder. ASSESSMENT: the patient looks distressed and she says she doesn't feel good, she feels sick. She reports having the episodes that seem "pseudoseizures", she says they are not new and says her Neurologist in [place] knows about them. she says her anxiety and depression are a 4/10, both, but she agrees on feeling frustrated about developing all these medical problems after having a gastric bypass 10 years ago. She says she feels frustrated but not hopeless or helpless, denies feeling suicidal. She agrees to increase the dose of Fluoxetine to 30 mgs ( this advertising copywriter already adjusted it in the Orders). I think it would be worth running a consult to Neurology, although I don't think this is part of a seizure problem, but I think is worth trying to find out if she is on the right medication ( Keppra) at this time. Increasing the dose of fluoxetine can help her feel better regarding anxiety and depression but is not going to take the pseudoseizures away, since this problem needs to be approached with psychotherapy. If she would be interested in Psychiatric and Psychological treatment, she nessa be referred to [facility] at [phone] where she can call to schedule an appointment or she can walk in during weekdays at 8 am. The patient is not at risk of harming herself or other people at this time. MANAGEMENT PLAN: As above TIME SPENT: 30 minutes. Vital Signs Vital Signs Date Time Temp Pulse Resp B/P (MAP) Pulse Ox O2 Delivery O2 Flow Rate FiO2 05/10/21 14:01 16 05/10/21 14:00 100.4 62 167/88 (114) 97 Room Air Laboratory Data 24H Labs Laboratory Tests 2 05/09/21 17:05: Bedside Glucose (Misc Panel) 155H 05/09/21 21:19: Bedside Glucose (Misc Panel) 178H 05/09/21 23:51: Bedside Glucose (Misc Panel) 167H 05/10/21 03:19: Bedside Glucose (Misc Panel) 175H 05/10/21 06:16: Immature Granulocyte % (Auto) 0.5, Neutrophils (%) (Auto) 74.4H, Lymphocytes (%) (Auto) 15.2L, Monocytes (%) (Auto) 9.3H, Eosinophils (%) (Auto) 0.1, Basophils (%) (Auto) 0.5, Neutrophils # (Auto) 5.7, Lymphocytes # (Auto) 1.2L, Monocytes # (Auto) 0.7, Eosinophils # (Auto) 0.0, Basophils # (Auto) 0.0, Nucleated Red Blood Cells % (auto) 0.0, Anion Gap 7L, Glomerular Filtration Rate > 60.0, Calcium Level 8.8, Magnesium Level 2.3 05/10/21 06:44: Bedside Glucose (Misc Panel) 164H 05/10/21 11:25: Bedside Glucose (Misc Panel) 160H 05/10/21 16:29: Bedside Glucose (Misc Panel) 153H CBC/BMP Laboratory Tests 05/10/21 06:16 Current Medications Current Medications Medications (Trade) Dose Ordered Sig/Isidro Route PRN Reason Start Time Stop Time Status Last Admin Dose Admin Acetaminophen (Tylenol Suppository) 650 mg Q4HP PRN [place] MILD PAIN or TEMP > 101 05/07/21 21:50 Cancel Acetaminophen (Tylenol Suspension) 650 mg Q4HP PRN [place] MILD PAIN or TEMP > 101 05/07/21 22:00 05/09/21 16:13 Amino Ac/Electrol/ Dextrose/Calcium 2,000 ml @ 80 mls/hr ONCE@1800 IV 05/07/21 18:00 05/08/21 17:59 DC 05/07/21 18:58 Amino Ac/Electrol/ Dextrose/Calcium 2,000 ml @ 80 mls/hr ONCE@1800 IV 05/08/21 18:00 05/09/21 17:59 DC 05/08/21 20:17 Amino Ac/Electrol/ Dextrose/Calcium 2,000 ml @ 80 mls/hr ONCE@1800 IV 05/09/21 18:00 05/10/21 17:59 05/09/21 18:40 Diphenhydramine HCl (Benadryl) 50 mg BID IV 05/07/21 09:00 05/10/21 08:39 Enoxaparin Sodium (Lovenox) 60 mg DAILY SC 05/07/21 09:00 05/10/21 08:40 Fat Emulsion Intravenous 250 ml @ 10 mls/hr ONCE@1800 IV 05/09/21 18:00 05/10/21 17:59 05/09/21 18:40 Fat Emulsion Intravenous 250 ml @ 10 mls/hr ONCE@1800 IV 05/10/21 18:00 05/11/21 17:59 Fat Emulsion Intravenous 500 ml @ 20 mls/hr ONCE@1800 IV 05/07/21 18:00 05/08/21 17:59 DC 05/07/21 18:58 Fat Emulsion Intravenous 500 ml @ 20 mls/hr ONCE@1800 IV 05/08/21 18:00 05/09/21 17:59 DC 05/08/21 20:18 Fluoxetine HCl (PROzac) 20 mg DAILY GT 05/07/21 09:00 05/10/21 08:39 Heparin Sodium (Heparin (Flush)) 200 units ASDIRECTED PRN IV SEE LABEL COMMENTS 05/07/21 07:20 05/07/21 15:47 DC Heparin Sodium (Heparin (Flush)) 200 units PICC IV 05/07/21 18:00 05/07/21 15:47 DC 05/07/21 10:43 Heparin Sodium (Heparin (Flush)) 200 units PICC IV 05/10/21 18:00 Home Med (Med Rec Complete!) ASDIRECTED XX 05/07/21 12:45 05/07/21 12:49 DC Insulin Human Lispro (HumaLOG INSULIN) See Protocol Table Q6H [place] 05/07/21 18:00 05/08/21 12:01 MD 05/08/21 11:47 Insulin Human Lispro (HumaLOG INSULIN) See Protocol Table Q6H [place] 05/08/21 18:00 05/09/21 12:01 MD 05/09/21 12:16 Insulin Human Lispro (HumaLOG INSULIN) See Protocol Table Q6H [place] 05/09/21 18:00 05/10/21 12:01 MD 05/10/21 12:52 Insulin Human Lispro (HumaLOG INSULIN) See Protocol Table Q6H [place] 05/10/21 18:00 05/11/21 12:01 Levetiracetam (Keppra Oral Solution) 1,000 mg BID 05/07/21 09:00 05/10/21 08:39 Lorazepam (Ativan) 0.5 mg TID PRN GT ANXIETY 05/07/21 13:10 Metoclopramide HCl (REGLAN INJection) 10 mg Q4HP PRN IV NAUSEA OR VOMITING 05/08/21 14:00 05/10/21 13:31 Metoclopramide HCl (REGLAN INJection) 10 mg Q6HP PRN IV NAUSEA OR VOMITING 05/07/21 16:05 05/08/21 13:50 DC 05/08/21 09:58 Multivitamins 10 ml/Chromium/ Copper/Manganese/ Seleni/Zn 1 ml/ Amino Ac/Electrol/ Dextrose/Calcium 2,011 ml @ 80 mls/hr ONCE@1800 IV 05/10/21 18:00 05/11/21 17:59 Ondansetron HCl (ZOFRAN INJection) 4 mg Q4HP PRN IV NAUSEA OR VOMITING 05/09/21 05:05 05/10/21 12:51 Oxycodone HCl (Roxicodone, Oxyir) 15 mg Q4HP PRN GT SEVERE PAIN (PS 8-10) 05/07/21 13:10 05/07/21 16:06 DC 05/07/21 14:43 Oxycodone HCl (Roxicodone, Oxyir) 40 mg Q4HP PRN GT SEVERE PAIN (PS 8-10) 05/07/21 17:00 05/10/21 13:31 Pantoprazole Sodium (Protonix) 40 mg BID IV 05/07/21 09:00 05/10/21 08:39 Promethazine HCl (PHENERGAN INJection) 25 mg Q6HP PRN IV NAUSEA 05/07/21 12:35 05/07/21 16:06 DC 05/07/21 13:34 Sodium Chloride 1,000 ml @ 80 mls/hr [id number] IV 05/07/21 13:20 05/07/21 19:45 DC 05/07/21 13:34 Sodium Chloride (Saline Lock Flush) 10 ml ASDIRECTED PRN IV SEE LABEL COMMENTS 05/07/21 07:20 05/07/21 15:47 DC Sodium Chloride (Saline Lock Flush) 10 ml PICC IV 05/07/21 18:00 05/07/21 15:47 DC 05/07/21 10:42 Sodium Chloride (Saline Lock Flush) 10 ml PICC IV 05/10/21 18:00 Zolpidem Tartrate (Ambien) 12.5 mg QHS TF 05/07/21 21:00 05/09/21 20:24 Allergies Coded Allergies: Sulfa (Sulfonamide Antibiotics) (Verified Allergy, Severe, RESP. PROBLEMS, SWELLING, HIVES, 06/28/20) butorphanol (Verified Allergy, Severe, HIVES/RESP. PROBLEMS (PERCOCET AND TYL#3 OK), 06/28/20) HAS HAD MORPHINE AND DILAUDID IN THE PAST levofloxacin (Verified Allergy, Severe, THROAT SWELLING/HIVES, 06/28/20) tomato (Verified Allergy, Severe, RESP. PROBLEMS, HIVES, 06/28/20) tramadol (Verified Allergy, Severe, SOB - HAS HAD MORPHINE AND DILAUDID IN THE PAST, 06/28/20) scopolamine (Verified Adverse Reaction, Intermediate, VISION LOSS, 06/28/20) NSAIDS (Non-Steroidal Anti-Inflamma (Verified Adverse Reaction, Mild, GASTRIC BYPASS, 06/28/20) ARIEL SCHAEFER MD May 10, 2021 16:51
[2021-05-10] MEDS ORDERED: FAT EMULSION IV 250 ML IV SCH (18:00)
[2021-05-10] MEDS ORDERED: MULTIVITAMIN -ADULT INJECTION 10 ML, CR/CU/SE/MN/ZN INJ 1 ML in AMINO AC/ELECTROLYTE/DE... IV SCH (18:00)
[2021-05-10] MEDS ORDERED: FAT EMULSION IV 250 ML IV ONE (18:00)
[2021-05-10] MEDS ORDERED: SODIUM CHLORIDE 0.9% INJ 10 ML SYR IV SCH (18:00)
[2021-05-10] MEDS ORDERED: HumaLOG INSULIN (NovoLOG) PER UNIT SC SCH (18:00)
--- NOTE | 2021-05-10 20:29 | IPNPDOC ---
Text Note Date of Service The patient was seen on 05/10/21. NOTE Alerted by nursing staff at approx 2014 that patient was frustrated with her care and threatening to leave AGAINST MEDICAL ADVICE. Saw and attempted physical exam of the patient at this time alongside BUSINESS SYSTEMS MANAGER Kim Ruff and patient expressed that she did not feel as though we were offering her any care that she could not provide herself at home by herself. Discussed with patient the risks of leaving such as worsening bowel symptoms, bowel obstruction, continuing seizures and complications of seizures such as hypoxia and . Patient states that she understands the risks and still wanted to leave AGAINST MEDICAL ADVICE. Patient also refused to sign AMA paperwork and was escorted out. VS,Fishbone, I+O VS, Fishbone, I+O Laboratory Tests 05/10/21 06:16 Vital Signs Date Time Temp Pulse Resp B/P (MAP) Pulse Ox O2 Delivery O2 Flow Rate FiO2 05/10/21 14:01 16 05/10/21 14:00 100.4 62 167/88 (114) 97 Room Air I&O- Last 24 Hours up to 6 AM 05/10/21 06:00 Intake Total 1560 ml Balance 1560 ml JENNA FERRARA May 10, 2021 20:29
[2021-05-11] MEDS ORDERED: FLUoxetine 10 MG CAP GT SCH (09:00)
== END 2021-05-10 20:25 | disposition left against medical advice (07) | DRG 254 ==
LOC: M ED 06:33 → M ED INP 12:34 → ENRESERV 14:56 → M MS5PR 15:45
PROVIDERS: ADMIT Internal Medicine; ATTEND Internal Medicine
DX: K31.84 Gastroparesis (principal); D68.59 Other primary thrombophilia; K91.2 Postsurgical malabsorption, not elsewhere classified; K56.7 Ileus, unspecified; K21.9 Gastro-esophageal reflux disease without esophagitis; F32.9 Major depressive disorder, single episode, unspecified; F41.9 Anxiety disorder, unspecified; D50.9 Iron deficiency anemia, unspecified; Z93.3 Colostomy status; Z90.49 Acquired absence of other specified parts of digestive tract; Z79.899 Other long term (current) drug therapy; Z88.2 Allergy status to sulfonamides; Z88.5 Allergy status to narcotic agent; Z88.6 Allergy status to analgesic agent; Z88.1 Allergy status to other antibiotic agents; Z88.8 Allergy status to other drugs, medicaments and biological substances; Z91.018 Allergy to other foods; R50.9 Fever, unspecified; R56.9 Unspecified convulsions

== ENCOUNTER → 2021-05-18 | Outpatient (REF) | payer BC, OTHER ==
[~2021-05-18] MED LIST changes: +ATIV1TAB10 GT; +DICL1GEL3 TOP; +LEVE15SO2 GT
[2021-05-18 18:13] LABS: BASO % 0.4 % (0.0-1.0); EOS # 0.4 10^3/uL (0.0-0.5); EOS % 5.8 % (0.0-3.0); HEMATOCRIT 33.8 % (36.0-47.0); HEMOGLOBIN 10.7 g/dl (12.0-15.5); LYMPH # 1.1 10^3/uL (1.5-5.0); LYMPH % 14.1 % (24.0-44.0); MEAN CORPUSCULAR HEMOGLOBIN 28.6 pg (27.0-33.0); MEAN CORPUSCULAR HGB CONC 31.7 g/dl (32.0-36.5); MEAN CORPUSCULAR VOLUME 90.4 fl (80.0-96.0); MONO # 0.9 10^3/uL (0.0-0.8); MONO % 11.6 % (2.0-8.0); NEUTROPHILS # 5.2 10^3/uL (1.5-8.5); NEUTROPHILS % 67.8 % (36.0-66.0); PLATELET COUNT, AUTOMATED 344 10^3/uL (150-450); RED BLOOD COUNT 3.74 10^6/uL (4.00-5.40); WHITE BLOOD COUNT 7.7 10^3/uL (4.0-10.0)
[2021-05-18 18:43] LABS: ALBUMIN 3.5 GM/DL (3.2-5.2); ALT/SGPT 44 U/L (12-78); BILIRUBIN,TOTAL 0.4 MG/DL (0.2-1.0); BLOOD UREA NITROGEN 5 MG/DL (7-18); CALCIUM LEVEL 8.9 MG/DL (8.5-10.1); CARBON DIOXIDE LEVEL 31 MEQ/L (21-32); CHLORIDE LEVEL 105 MEQ/L (98-107); CHOLESTEROL LEVEL 186 MG/DL (<200); CREATININE FOR GFR 0.73 MG/DL (0.55-1.30); GLOMERULAR FILTRATION RATE > 60.0 (>58); GLUCOSE, FASTING 94 MG/DL (70-100); HDL CHOLESTEROL 34 MG/DL (>40); LDL CHOLESTEROL 103 MG/DL (<100); MAGNESIUM LEVEL 2.4 MG/DL (1.8-2.4); NON-HDL-C 152 MG/DL; PHOSPHORUS LEVEL 5.6 MG/DL (2.5-4.9); POTASSIUM SERUM 4.6 MEQ/L (3.5-5.1); SODIUM LEVEL 140 MEQ/L (136-145); TOTAL PROTEIN 5.9 GM/DL (6.4-8.2); TRIGLYCERIDES LEVEL 243 MG/DL (<150)
== END ==
LOC: M LAB REF 17:29
PROVIDERS: ATTEND Internal Medicine Gastroenterology
DX: K31.84 Gastroparesis (principal); K21.00 Gastro-esophageal reflux disease with esophagitis, without bleeding; Z98.84 Bariatric surgery status

== ENCOUNTER 2021-07-30 18:54 | Emergency (ER) | payer BC, OTHER ==
[~2021-07-30] VITALS: Ht 175.3 cm; Wt 77.3 kg
[~2021-07-30 18:54] MED LIST changes: +MORP1SOL5; -MORP20SO3; -ONDA2VL; -ONDA2VL IV; +ONDA40IN; +ONDA40IN IV
[2021-07-30] MEDS ORDERED: NS 1,000 ML IV ONE (20:25)
[2021-07-30] MEDS ORDERED: PROMETHAZINE INJ 25 MG/ML VIAL (J2550) IV ONE (20:25)
[2021-07-30] MEDS ORDERED: ALTEPLASE 2MG/2ML VIAL IV PRN (21:35)
[2021-07-30 22:24] VITALS: BP 138/65
== END 2021-07-30 23:03 | disposition left against medical advice (07) ==
LOC: M ED 18:54
DX: F44.5 Conversion disorder with seizures or convulsions (principal); Z76.5 Malingerer [conscious simulation]; Z53.9 Procedure and treatment not carried out, unspecified reason; F11.10 Opioid abuse, uncomplicated; F41.1 Generalized anxiety disorder; F32.9 Major depressive disorder, single episode, unspecified; Z98.84 Bariatric surgery status; Z79.899 Other long term (current) drug therapy; Z88.6 Allergy status to analgesic agent; Z88.2 Allergy status to sulfonamides; Z88.5 Allergy status to narcotic agent; Z88.8 Allergy status to other drugs, medicaments and biological substances; Z91.018 Allergy to other foods
CPT/HCPCS: 99284; J2997

== ENCOUNTER → 2021-08-16 | Outpatient (REF) | payer BC, OTHER ==
[~2021-08-16] MED LIST changes: +OXYC100C5 PO; -OXYC1CON PO
[2021-08-16 19:40] LABS: HEMATOCRIT 36.1 % (36.0-47.0); HEMOGLOBIN 11.7 g/dl (12.0-15.5); MEAN CORPUSCULAR HEMOGLOBIN 28.7 pg (27.0-33.0); MEAN CORPUSCULAR HGB CONC 32.4 g/dl (32.0-36.5); MEAN CORPUSCULAR VOLUME 88.5 fl (80.0-96.0); PLATELET COUNT, AUTOMATED 344 10^3/uL (150-450); RED BLOOD COUNT 4.08 10^6/uL (4.00-5.40); WHITE BLOOD COUNT 5.7 10^3/uL (4.0-10.0)
[2021-08-16 19:42] LABS: ALBUMIN 3.4 GM/DL (3.2-5.2); ALT/SGPT 37 U/L (12-78); BILIRUBIN,TOTAL 0.3 MG/DL (0.2-1.0); BLOOD UREA NITROGEN 9 MG/DL (7-18); CALCIUM LEVEL 9.2 MG/DL (8.5-10.1); CARBON DIOXIDE LEVEL 32 MEQ/L (21-32); CHLORIDE LEVEL 105 MEQ/L (98-107); CREATININE FOR GFR 0.78 MG/DL (0.55-1.30); FERRITIN 46 NG/ML (8-252); GLOMERULAR FILTRATION RATE > 60.0 (>58); GLUCOSE, FASTING 105 MG/DL (70-100); SODIUM LEVEL 139 MEQ/L (136-145); TOTAL PROTEIN 6.6 GM/DL (6.4-8.2)
== END ==
LOC: M SFHCPLAZ 19:19
PROVIDERS: ATTEND Family Medicine
DX: D50.0 Iron deficiency anemia secondary to blood loss (chronic) (principal); Z78.9 Other specified health status

== ENCOUNTER → 2021-09-21 | Outpatient (REF) | payer BC, OTHER ==
[~2021-09-21] MED LIST changes: +FLUO-96 GT; -FLUO20CA20 GT
[2021-09-21 13:57] LABS: BASO % 0.6 % (0.0-1.0); EOS # 0.3 10^3/uL (0.0-0.5); EOS % 4.4 % (0.0-3.0); HEMATOCRIT 41.6 % (36.0-47.0); LYMPH # 1.7 10^3/uL (1.5-5.0); LYMPH % 26.6 % (24.0-44.0); MEAN CORPUSCULAR HEMOGLOBIN 28.4 pg (27.0-33.0); MEAN CORPUSCULAR HGB CONC 31.3 g/dl (32.0-36.5); MEAN CORPUSCULAR VOLUME 90.8 fl (80.0-96.0); MONO # 0.6 10^3/uL (0.0-0.8); MONO % 9.6 % (2.0-8.0); NEUTROPHILS # 3.8 10^3/uL (1.5-8.5); NEUTROPHILS % 58.5 % (36.0-66.0); PLATELET COUNT, AUTOMATED 320 10^3/uL (150-450); RED BLOOD COUNT 4.58 10^6/uL (4.00-5.40); WHITE BLOOD COUNT 6.5 10^3/uL (4.0-10.0)
[2021-09-21 14:35] LABS: ALBUMIN 3.7 GM/DL (3.2-5.2); ALT/SGPT 31 U/L (12-78); BILIRUBIN,TOTAL 0.4 MG/DL (0.2-1.0); BLOOD UREA NITROGEN 7 MG/DL (7-18); CALCIUM LEVEL 9.2 MG/DL (8.5-10.1); CARBON DIOXIDE LEVEL 24 MEQ/L (21-32); CHLORIDE LEVEL 107 MEQ/L (98-107); CHOLESTEROL LEVEL 270 MG/DL (<200); CHOLESTEROL RISK RATIO 6.923 (<5); CREATININE FOR GFR 0.74 MG/DL (0.55-1.30); GLOMERULAR FILTRATION RATE > 60.0 (>58); GLUCOSE, FASTING 92 MG/DL (70-100); HDL CHOLESTEROL 39 MG/DL (>40); LDL CHOLESTEROL 176 MG/DL (<100); MAGNESIUM LEVEL 2.4 MG/DL (1.8-2.4); NON-HDL-C 231 MG/DL; PHOSPHORUS LEVEL 3.8 MG/DL (2.5-4.9); POTASSIUM SERUM 4.2 MEQ/L (3.5-5.1); SODIUM LEVEL 141 MEQ/L (136-145); TOTAL PROTEIN 6.6 GM/DL (6.4-8.2); TRIGLYCERIDES LEVEL 273 MG/DL (<150)
[2021-09-22 08:12] LABS: LDL DIRECT 174 mg/dL (0-99)
== END ==
LOC: M LAB REF 13:17
PROVIDERS: ATTEND Internal Medicine Gastroenterology
DX: K31.84 Gastroparesis (principal); K21.00 Gastro-esophageal reflux disease with esophagitis, without bleeding; Z98.84 Bariatric surgery status

== ENCOUNTER → 2021-10-01 | Outpatient (REF) | payer BC, OTHER ==
[2021-10-01 11:09] LABS: BASO % 0.5 % (0.0-1.0); EOS # 0.3 10^3/uL (0.0-0.5); EOS % 5.5 % (0.0-3.0); HEMATOCRIT 32.3 % (36.0-47.0); HEMOGLOBIN 10.6 g/dl (12.0-15.5); LYMPH # 0.8 10^3/uL (1.5-5.0); MEAN CORPUSCULAR HEMOGLOBIN 29.4 pg (27.0-33.0); MEAN CORPUSCULAR HGB CONC 32.8 g/dl (32.0-36.5); MEAN CORPUSCULAR VOLUME 89.7 fl (80.0-96.0); MONO # 0.5 10^3/uL (0.0-0.8); MONO % 8.5 % (2.0-8.0); NEUTROPHILS # 4.3 10^3/uL (1.5-8.5); NEUTROPHILS % 72.3 % (36.0-66.0); PLATELET COUNT, AUTOMATED 217 10^3/uL (150-450)
[2021-10-01 11:43] LABS: ALT/SGPT 21 U/L (12-78); BILIRUBIN,TOTAL 0.3 MG/DL (0.2-1.0); BLOOD UREA NITROGEN 9 MG/DL (7-18); CALCIUM LEVEL 8.1 MG/DL (8.5-10.1); CARBON DIOXIDE LEVEL 29 MEQ/L (21-32); CHLORIDE LEVEL 106 MEQ/L (98-107); CHOLESTEROL LEVEL 185 MG/DL (<200); CHOLESTEROL RISK RATIO 4.743 (<5); CREATININE FOR GFR 0.63 MG/DL (0.55-1.30); GLOMERULAR FILTRATION RATE > 60.0 (>58); GLUCOSE, FASTING 105 MG/DL (70-100); HDL CHOLESTEROL 39 MG/DL (>40); LDL CHOLESTEROL 111 MG/DL (<100); NON-HDL-C 146 MG/DL; PHOSPHORUS LEVEL 4.3 MG/DL (2.5-4.9); POTASSIUM SERUM 4.9 MEQ/L (3.5-5.1); SODIUM LEVEL 140 MEQ/L (136-145); TOTAL PROTEIN 5.9 GM/DL (6.4-8.2); TRIGLYCERIDES LEVEL 177 MG/DL (<150)
== END ==
LOC: M LAB REF 10:51
PROVIDERS: ATTEND Internal Medicine Gastroenterology
DX: K31.84 Gastroparesis (principal); Z98.84 Bariatric surgery status

== ENCOUNTER → 2022-01-21 | Outpatient (REF) | payer BC, OTHER ==
[2022-01-21 20:03] LABS: BASO % 0.5 % (0.0-1.0); EOS # 0.4 10^3/uL (0.0-0.5); HEMATOCRIT 33.3 % (36.0-47.0); HEMOGLOBIN 10.4 g/dl (12.0-15.5); LYMPH # 1.7 10^3/uL (1.5-5.0); LYMPH % 25.9 % (24.0-44.0); MEAN CORPUSCULAR HGB CONC 31.2 g/dl (32.0-36.5); MEAN CORPUSCULAR VOLUME 89.8 fl (80.0-96.0); MONO # 0.5 10^3/uL (0.0-0.8); MONO % 8.2 % (2.0-8.0); NEUTROPHILS # 3.8 10^3/uL (1.5-8.5); NEUTROPHILS % 59.1 % (36.0-66.0); PLATELET COUNT, AUTOMATED 256 10^3/uL (150-450); RED BLOOD COUNT 3.71 10^6/uL (4.00-5.40); WHITE BLOOD COUNT 6.4 10^3/uL (4.0-10.0)
[2022-01-21 20:47] LABS: ALBUMIN 3.4 GM/DL (3.2-5.2); ALT/SGPT 47 U/L (12-78); BILIRUBIN,TOTAL 0.4 MG/DL (0.2-1.0); BLOOD UREA NITROGEN 5 MG/DL (7-18); CALCIUM LEVEL 8.3 MG/DL (8.5-10.1); CARBON DIOXIDE LEVEL 30 MEQ/L (21-32); CHLORIDE LEVEL 104 MEQ/L (98-107); CHOLESTEROL LEVEL 168 MG/DL (<200); CHOLESTEROL RISK RATIO 4.666 (<5); CREATININE FOR GFR 0.69 MG/DL (0.55-1.30); GLOMERULAR FILTRATION RATE > 60.0 (>58); GLUCOSE, FASTING 122 MG/DL (70-100); HDL CHOLESTEROL 36 MG/DL (>40); LDH LACTATE DEHYDROGENASE 144 U/L (84-246); LDL CHOLESTEROL 114 MG/DL (<100); NON-HDL-C 132 MG/DL; PHOSPHORUS LEVEL 3.6 MG/DL (2.5-4.9); SODIUM LEVEL 139 MEQ/L (136-145); TOTAL PROTEIN 5.8 GM/DL (6.4-8.2); TRIGLYCERIDES LEVEL 91 MG/DL (<150); URIC ACID 4.2 MG/DL (2.6-6.0)
[2022-01-23 08:12] LABS: LDL DIRECT 112 mg/dL (0-99)
== END ==
LOC: M LAB REF 19:47
PROVIDERS: ATTEND Internal Medicine Gastroenterology
DX: K31.84 Gastroparesis (principal); K21.00 Gastro-esophageal reflux disease with esophagitis, without bleeding; Z98.84 Bariatric surgery status

== ENCOUNTER 2022-03-05 11:26 | Inpatient (IN) | payer BC, OTHER ==
[~2022-03-05] VITALS: Ht 170.2 cm; Wt 87.6 kg
[~2022-03-05 11:26] MED LIST changes: +OXYC100C5 JT; -OXYC100C5 PO
[2022-03-05 14:58] LABS: HEMATOCRIT 37.2 % (36.0-47.0); HEMOGLOBIN 11.8 g/dl (12.0-15.5); MEAN CORPUSCULAR HEMOGLOBIN 28.1 pg (27.0-33.0); MEAN CORPUSCULAR HGB CONC 31.7 g/dl (32.0-36.5); MEAN CORPUSCULAR VOLUME 88.6 fl (80.0-96.0); PLATELET COUNT, AUTOMATED 351 10^3/uL (150-450)
[2022-03-05 15:00] LABS: WHITE BLOOD COUNT 31.8 10^3/uL (4.0-10.0)
[2022-03-05] MEDS ORDERED: VANCOMYCIN HCL 1,500 MG in IV FLUID PLACE HOLDER 1 EA IV ONE (15:45)
[2022-03-05] MEDS ORDERED: NS 2,420 ML in IV 1 EA IV ONE (15:45)
[2022-03-05] MEDS ORDERED: cefTRIAXone SOD 1 GM in D5W MINI-BAG PLUS 50 ML IV ONE (15:45)
[2022-03-05] MEDS ORDERED: VANCOMYCIN HCL 750 MG, VIAL MATE ADAPTER 1 EACH in NS 250 ML IV ONE ×6 (15:50)
[2022-03-05 16:07] LABS: BASO # 0.1 10^3/uL (0.0-0.2); BASO % 0.2 % (0.0-1.0); EOS # 0.1 10^3/uL (0.0-0.5); EOS % 0.2 % (0.0-3.0); HEMATOCRIT 36.2 % (36.0-47.0); HEMOGLOBIN 11.2 g/dl (12.0-15.5); LYMPH # 2.1 10^3/uL (1.5-5.0); LYMPH % 6.8 % (24.0-44.0); MEAN CORPUSCULAR HEMOGLOBIN 27.3 pg (27.0-33.0); MEAN CORPUSCULAR HGB CONC 30.9 g/dl (32.0-36.5); MEAN CORPUSCULAR VOLUME 88.3 fl (80.0-96.0); MONO # 1.4 10^3/uL (0.0-0.8); MONO % 4.5 % (2.0-8.0); NEUTROPHILS # 27.4 10^3/uL (1.5-8.5); NEUTROPHILS % 86.9 % (36.0-66.0); PLATELET COUNT, AUTOMATED 361 10^3/uL (150-450)
[2022-03-05 16:10] LABS: WHITE BLOOD COUNT 31.5 10^3/uL (4.0-10.0)
[2022-03-05 16:28] LABS: BLOOD UREA NITROGEN 14 MG/DL (7-18); CALCIUM LEVEL 9.1 MG/DL (8.5-10.1); CARBON DIOXIDE LEVEL 25 MEQ/L (21-32); CHLORIDE LEVEL 102 MEQ/L (98-107); CREATININE FOR GFR 0.62 MG/DL (0.55-1.30); GLOMERULAR FILTRATION RATE > 60.0 (>58); GLUCOSE, FASTING 126 MG/DL (70-100); POTASSIUM SERUM 4.8 MEQ/L (3.5-5.1); SODIUM LEVEL 134 MEQ/L (136-145)
[2022-03-05 16:34] LABS: ERYTHROCYTE SEDIMENTATION RATE 82 mm/hr (0-20)
[2022-03-05 16:38] LABS: ALBUMIN 2.7 GM/DL (3.2-5.2); ALT/SGPT 59 U/L (12-78); BILIRUBIN,DIRECT < 0.1 MG/DL (0.0-0.2); BILIRUBIN,TOTAL 0.9 MG/DL (0.2-1.0); TOTAL PROTEIN 7.2 GM/DL (6.4-8.2)
[2022-03-05] MEDS ORDERED: LEVE10003 JT (16:58)
[2022-03-05] MEDS ORDERED: MIDO5TA JT (16:58)
[2022-03-05] MEDS ORDERED: ZOLP10TA2 JT (16:58)
[2022-03-05] MEDS ORDERED: NYST50SS PO (16:58)
[2022-03-05] MEDS ORDERED: HOME MED LIST COMPLETE! XX SCH (17:00)
[2022-03-05] MEDS ORDERED: ONDANSETRON 4MG/2ML VIAL IV ONE (17:15)
[2022-03-05] MEDS ORDERED: MORPHINE 4 MG/ML 1ML VIAL/SYRINGE IV ONE (17:15)
[2022-03-05] MEDS ORDERED: ISOVUE-370 76% 100ML VIAL As Ordered ONE (17:36)
[2022-03-05 18:45] LABS: RSV AMPLIFICATION NEGATIVE (NEGATIVE)
[2022-03-05] MEDS ORDERED: diphenhydrAMINE 50MG/ML VIAL (J1200) IV STA (19:56)
[2022-03-05] MEDS ORDERED: HYDROMORPHONE HCL 0.5 MG/ 0.5 ML SYRINGE (J1170 PER 1) IV ONE (20:00)
[2022-03-05] MEDS ORDERED: METOCLOPRAMIDE INJ 10MG/2ML VIAL (J2765 PER 1) IV ONE (20:00)
[2022-03-05] MEDS: NS 1,000 ML IV SCH (20:16)
[2022-03-05 23:15] VITALS: BP 108/60
[2022-03-05] MEDS ORDERED: zolPIDEM TARTRATE 5 MG TAB JT ONE (23:50)
[2022-03-06] VITALS (18 sets, daily range): BP systolic 93–117; BP diastolic 52–66; O2SAT 96–100
[2022-03-06] MEDS: HYDROMORPHONE HCL 0.5 MG/ 0.5 ML SYRINGE (J1170 PER 1) IV PRN ×7 (00:07→21:09)
[2022-03-06] MEDS: ONDANSETRON 4MG/2ML VIAL IV PRN ×4 (00:16→21:03)
[2022-03-06] MEDS: PIPERACILLIN/TAZOBACTAM SOD 4.5 GM in D5W MINI-BAG PLUS 50 ML IV SCH ×5 (00:25→23:37)
[2022-03-06] MEDS: SODIUM CHLORIDE 0.9% INJ 10 ML SYR IV PRN (00:50)
[2022-03-06 01:00] LABS: APPEARANCE, URINE CLEAR (CLEAR); BACTERIA, URINE AUTO NEGATIVE (NEGATIVE); BILIRUBIN, URINE AUTO NEGATIVE (NEGATIVE); BLOOD, URINE BLOOD NEGATIVE (NEGATIVE); COLOR, URINE YELLOW (YELLOW); GLUCOSE, URINE (UA) AUTO 2+ mg/dL (NEGATIVE); KETONE, URINE AUTO NEGATIVE (NEGATIVE); LEUKOCYTE ESTERASE, URINE AUTO NEGATIVE (NEGATIVE); NITRITE, URINE AUTO NEGATIVE (NEGATIVE); PROTEIN, URINE AUTO NEGATIVE (NEGATIVE); RBC, URINE AUTO 0 /HPF (0-3); SPECIFIC GRAVITY URINE AUTO 1.021 (1.002-1.035); SQUAMOUS EPITHELIAL CELL UR AU 0 /HPF (0-6); WBC, URINE AUTO 0 /HPF (0-3)
[2022-03-06] MEDS: ACETAMINOPHEN TAB 650MG DOSE (2X325MG) PO PRN ×3 (01:44→23:48)
[2022-03-06] MEDS: VANCOMYCIN HCL 1,000 MG, VIAL MATE ADAPTER 1 EACH in NS 250 ML IV SCH ×2 (01:54→08:11)
[2022-03-06] MEDS ORDERED: KETOROLAC 30 MG/ML 1ML VIAL IV ONE (02:00)
[2022-03-06] MEDS ORDERED: NS 500 ML IV ONE (02:00)
[2022-03-06] MEDS ORDERED: LORazepam 0.5 MG TAB GT PRN (02:25)
[2022-03-06] MEDS: METOCLOPRAMIDE INJ 10MG/2ML VIAL (J2765 PER 1) IV PRN (03:21)
[2022-03-06] MEDS: NS 1,000 ML IV SCH ×3 (04:40→21:04)
[2022-03-06 07:23] LABS: HEMATOCRIT 29.5 % (36.0-47.0); MEAN CORPUSCULAR HEMOGLOBIN 27.5 pg (27.0-33.0); MEAN CORPUSCULAR HGB CONC 30.8 g/dl (32.0-36.5); MEAN CORPUSCULAR VOLUME 89.1 fl (80.0-96.0); PLATELET COUNT, AUTOMATED 281 10^3/uL (150-450); RED BLOOD COUNT 3.31 10^6/uL (4.00-5.40); WHITE BLOOD COUNT 21.7 10^3/uL (4.0-10.0)
[2022-03-06 07:28] LABS: HEMOGLOBIN 9.1 g/dl (12.0-15.5)
[2022-03-06 07:45] LABS: INR 1.11; PROTHROMBIN TIME 14.7 SECONDS (12.7-14.5)
[2022-03-06 07:46] LABS: PARTIAL THROMBOPLASTIN TIME 43.1 SECONDS (25.9-37.0)
[2022-03-06 07:49] LABS: BLOOD UREA NITROGEN 7 MG/DL (7-18); CALCIUM LEVEL 8.4 MG/DL (8.5-10.1); CARBON DIOXIDE LEVEL 24 MEQ/L (21-32); CHLORIDE LEVEL 110 MEQ/L (98-107); CREATININE FOR GFR 0.73 MG/DL (0.55-1.30); GLOMERULAR FILTRATION RATE > 60.0 (>58); GLUCOSE, FASTING 145 MG/DL (70-100); POTASSIUM SERUM 3.4 MEQ/L (3.5-5.1); SODIUM LEVEL 141 MEQ/L (136-145)
[2022-03-06] MEDS: MIDODRINE 5 MG TAB JT SCH ×3 (08:11→16:19)
[2022-03-06] MEDS ORDERED: NS 1,000 ML IV ONE (08:45)
[2022-03-06] MEDS: levETIRAcetam 250MG TABLET (KEPPRA) JT SCH ×2 (08:54→21:02)
[2022-03-06] MEDS: PANTOPRAZOLE 40MG VIAL IV SCH ×2 (08:54→21:02)
[2022-03-06] MEDS: ENOXAPARIN 60MG/0.6ML SYRINGE (J1650 PER 10MG) SC SCH (08:54)
[2022-03-06] MEDS: SODIUM CHLORIDE 0.9% INJ 10 ML SYR IV SCH (08:55)
[2022-03-06] MEDS: NYSTATIN 500,000 U/5 ML SUSP UDC PO SCH ×4 (08:56→21:00)
[2022-03-06] MEDS: FLUoxetine 20MG CAP GT SCH (08:57)
[2022-03-06] MEDS: diphenhydrAMINE 50MG/ML VIAL (J1200) IV SCH ×2 (08:57→21:02)
[2022-03-06] MEDS: oxyCODONE 5MG TAB GT PRN ×3 (08:58→22:37)
[2022-03-06] MEDS ORDERED: ENOXAPARIN 40MG/0.4ML SYRINGE (J1650 PER 10MG) SC SCH (09:00)
[2022-03-06] MEDS: VANCOMYCIN HCL 750 MG, VIAL MATE ADAPTER 1 EACH in NS 250 ML IV SCH (17:14)
[2022-03-06] MEDS ORDERED: POTASSIUM CHLORIDE 10MEQ SR TABLET PO ONE (19:05)
[2022-03-06] MEDS ORDERED: POTASSIUM CHLORIDE 10% LIQ 20 MEQ/15 ML UDC PO ONE (20:00)
[2022-03-06] MEDS: zolPIDEM TARTRATE 5 MG TAB JT SCH (21:01)
[2022-03-06] MEDS: KCL 10MEQ/100ML SWI (KRUN) 10 MEQ in IV 1 EA IV SCH ×3 (21:12→23:48)
[2022-03-07] VITALS (16 sets, daily range): BP systolic 101–129; BP diastolic 52–68; O2SAT 95–100
[2022-03-07] MEDS ORDERED: HYDROMORPHONE HCL 0.5 MG/ 0.5 ML SYRINGE (J1170 PER 1) IV ONE (00:45)
[2022-03-07] MEDS: VANCOMYCIN HCL 750 MG, VIAL MATE ADAPTER 1 EACH in NS 250 ML IV SCH ×2 (00:47→12:18)
[2022-03-07] MEDS: SODIUM CHLORIDE 0.9% INJ 10 ML SYR IV PRN (01:26)
[2022-03-07] MEDS: oxyCODONE 5MG TAB GT PRN ×3 (03:49→21:36)
[2022-03-07] MEDS: PIPERACILLIN/TAZOBACTAM SOD 4.5 GM in D5W MINI-BAG PLUS 50 ML IV SCH ×4 (04:29→21:28)
[2022-03-07] MEDS: HYDROMORPHONE HCL 0.5 MG/ 0.5 ML SYRINGE (J1170 PER 1) IV PRN ×5 (04:46→20:15)
[2022-03-07 08:59] LABS: HEMATOCRIT 25.8 % (36.0-47.0); HEMOGLOBIN 8.1 g/dl (12.0-15.5); MEAN CORPUSCULAR HGB CONC 31.4 g/dl (32.0-36.5); MEAN CORPUSCULAR VOLUME 89.3 fl (80.0-96.0); PLATELET COUNT, AUTOMATED 258 10^3/uL (150-450); RED BLOOD COUNT 2.89 10^6/uL (4.00-5.40); WHITE BLOOD COUNT 11.9 10^3/uL (4.0-10.0)
[2022-03-07] MEDS: NYSTATIN 500,000 U/5 ML SUSP UDC PO SCH ×4 (09:00→20:15)
[2022-03-07 09:46] LABS: ALBUMIN 1.7 GM/DL (3.2-5.2); C REACTIVE PROTEIN QUANTITATIV 25.9 MG/DL (0.00-0.30); CALCIUM LEVEL 8.3 MG/DL (8.5-10.1); CREATININE FOR GFR 1.12 MG/DL (0.55-1.30); GLOMERULAR FILTRATION RATE 56.5 (>58); POTASSIUM SERUM 3.6 MEQ/L (3.5-5.1); TOTAL PROTEIN 4.7 GM/DL (6.4-8.2)
[2022-03-07] MEDS: NS 1,000 ML IV SCH (09:59)
[2022-03-07] MEDS: SODIUM CHLORIDE 0.9% INJ 10 ML SYR IV SCH (10:01)
[2022-03-07] MEDS: ENOXAPARIN 60MG/0.6ML SYRINGE (J1650 PER 10MG) SC SCH (10:03)
[2022-03-07] MEDS: MIDODRINE 5 MG TAB JT SCH ×3 (10:04→15:31)
[2022-03-07] MEDS: FLUoxetine 20MG CAP GT SCH (10:05)
[2022-03-07] MEDS: levETIRAcetam 250MG TABLET (KEPPRA) JT SCH ×2 (10:05→20:15)
[2022-03-07] MEDS: PANTOPRAZOLE 40MG VIAL IV SCH ×2 (10:08→20:15)
[2022-03-07] MEDS: ONDANSETRON 4MG/2ML VIAL IV PRN ×3 (10:09→21:35)
[2022-03-07] MEDS: diphenhydrAMINE 50MG/ML VIAL (J1200) IV SCH ×2 (10:09→21:28)
[2022-03-07] MEDS: zolPIDEM TARTRATE 5 MG TAB JT SCH (20:15)
[2022-03-07] MEDS: ACETAMINOPHEN TAB 650MG DOSE (2X325MG) PO PRN (22:31)
[2022-03-07] MEDS ORDERED: KETOROLAC 30 MG/ML 1ML VIAL IV ONE (22:45)
[2022-03-07] MEDS ORDERED: hydrOXYzine 25 MG TAB PO ONE (23:30)
[2022-03-07] MEDS: METOCLOPRAMIDE INJ 10MG/2ML VIAL (J2765 PER 1) IV PRN (23:30)
[2022-03-08] VITALS (7 sets, daily range): BP systolic 96–138; BP diastolic 53–76
[2022-03-08] MEDS: VANCOMYCIN HCL 750 MG, VIAL MATE ADAPTER 1 EACH in NS 250 ML IV SCH ×2 (00:17→14:03)
[2022-03-08] MEDS: HYDROMORPHONE HCL 0.5 MG/ 0.5 ML SYRINGE (J1170 PER 1) IV PRN ×6 (00:18→20:47)
[2022-03-08] MEDS: oxyCODONE 5MG TAB GT PRN ×4 (03:28→19:35)
[2022-03-08] MEDS: PIPERACILLIN/TAZOBACTAM SOD 4.5 GM in D5W MINI-BAG PLUS 50 ML IV SCH ×4 (03:28→20:47)
[2022-03-08] MEDS: SODIUM CHLORIDE 0.9% INJ 10 ML SYR IV PRN ×2 (04:56→19:33)
[2022-03-08] MEDS ORDERED: KETOROLAC 30 MG/ML 1ML VIAL IV ONE ×2 (05:00→18:30)
[2022-03-08 06:27] LABS: HEMATOCRIT 24.3 % (36.0-47.0); HEMOGLOBIN 7.7 g/dl (12.0-15.5); MEAN CORPUSCULAR HEMOGLOBIN 27.6 pg (27.0-33.0); MEAN CORPUSCULAR HGB CONC 31.7 g/dl (32.0-36.5); MEAN CORPUSCULAR VOLUME 87.1 fl (80.0-96.0); PLATELET COUNT, AUTOMATED 222 10^3/uL (150-450); RED BLOOD COUNT 2.79 10^6/uL (4.00-5.40); WHITE BLOOD COUNT 10.1 10^3/uL (4.0-10.0)
[2022-03-08 07:08] LABS: ALBUMIN 1.7 GM/DL (3.2-5.2); ALT/SGPT 41 U/L (12-78); BLOOD UREA NITROGEN 7 MG/DL (7-18); CALCIUM LEVEL 8.2 MG/DL (8.5-10.1); CARBON DIOXIDE LEVEL 22 MEQ/L (21-32); CHLORIDE LEVEL 113 MEQ/L (98-107); CREATININE FOR GFR 0.92 MG/DL (0.55-1.30); GLOMERULAR FILTRATION RATE > 60.0 (>58); GLUCOSE, FASTING 126 MG/DL (70-100); POTASSIUM SERUM 3.4 MEQ/L (3.5-5.1); SODIUM LEVEL 141 MEQ/L (136-145); TOTAL PROTEIN 5.1 GM/DL (6.4-8.2)
[2022-03-08] MEDS ORDERED: ISOVUE-370 76% 100ML VIAL As Ordered ONE (07:58)
[2022-03-08] MEDS: MIDODRINE 5 MG TAB JT SCH ×3 (08:42→16:21)
[2022-03-08] MEDS: levETIRAcetam 250MG TABLET (KEPPRA) JT SCH ×2 (08:42→19:34)
[2022-03-08] MEDS: FLUoxetine 20MG CAP GT SCH (08:43)
[2022-03-08] MEDS: ENOXAPARIN 60MG/0.6ML SYRINGE (J1650 PER 10MG) SC SCH (08:48)
[2022-03-08] MEDS: KCL 10MEQ/100ML SWI (KRUN) 10 MEQ in IV 1 EA IV SCH ×3 (08:50→12:41)
[2022-03-08] MEDS: diphenhydrAMINE 50MG/ML VIAL (J1200) IV SCH ×2 (08:50→19:35)
[2022-03-08] MEDS: PANTOPRAZOLE 40MG VIAL IV SCH ×2 (08:50→19:33)
[2022-03-08] MEDS: SODIUM CHLORIDE 0.9% INJ 10 ML SYR IV SCH (08:51)
[2022-03-08] MEDS: NYSTATIN 500,000 U/5 ML SUSP UDC PO SCH ×4 (08:51→19:35)
[2022-03-08] MEDS: ACETAMINOPHEN TAB 650MG DOSE (2X325MG) PO PRN ×2 (12:39→19:36)
[2022-03-08] MEDS: ONDANSETRON 4MG/2ML VIAL IV PRN ×2 (15:14→22:18)
[2022-03-08] MEDS: zolPIDEM TARTRATE 5 MG TAB JT SCH (19:34)
[2022-03-09] VITALS (10 sets, daily range): BP systolic 92–136; BP diastolic 49–80; O2SAT 94–97
[2022-03-09] MEDS: VANCOMYCIN HCL 750 MG, VIAL MATE ADAPTER 1 EACH in NS 250 ML IV SCH ×3 (00:36→13:39)
[2022-03-09] MEDS: oxyCODONE 5MG TAB GT PRN ×3 (00:36→10:44)
[2022-03-09] MEDS: HYDROMORPHONE HCL 0.5 MG/ 0.5 ML SYRINGE (J1170 PER 1) IV PRN ×8 (02:35→22:29)
[2022-03-09] MEDS: PIPERACILLIN/TAZOBACTAM SOD 4.5 GM in D5W MINI-BAG PLUS 50 ML IV SCH ×4 (04:46→23:53)
[2022-03-09] MEDS: ACETAMINOPHEN TAB 650MG DOSE (2X325MG) PO PRN (06:21)
[2022-03-09 07:09] LABS: HEMATOCRIT 25.3 % (36.0-47.0); HEMOGLOBIN 7.8 g/dl (12.0-15.5); MEAN CORPUSCULAR HEMOGLOBIN 26.9 pg (27.0-33.0); MEAN CORPUSCULAR HGB CONC 30.8 g/dl (32.0-36.5); MEAN CORPUSCULAR VOLUME 87.2 fl (80.0-96.0); PLATELET COUNT, AUTOMATED 251 10^3/uL (150-450); WHITE BLOOD COUNT 12.2 10^3/uL (4.0-10.0)
[2022-03-09 07:42] LABS: ALBUMIN 1.8 GM/DL (3.2-5.2); ALT/SGPT 44 U/L (12-78); BILIRUBIN,TOTAL 1.1 MG/DL (0.2-1.0); BLOOD UREA NITROGEN 6 MG/DL (7-18); CALCIUM LEVEL 8.6 MG/DL (8.5-10.1); CARBON DIOXIDE LEVEL 22 MEQ/L (21-32); CHLORIDE LEVEL 109 MEQ/L (98-107); CREATININE FOR GFR 0.81 MG/DL (0.55-1.30); GLOMERULAR FILTRATION RATE > 60.0 (>58); GLUCOSE, FASTING 136 MG/DL (70-100); POTASSIUM SERUM 3.5 MEQ/L (3.5-5.1); SODIUM LEVEL 142 MEQ/L (136-145); TOTAL PROTEIN 5.5 GM/DL (6.4-8.2)
[2022-03-09] MEDS: PANTOPRAZOLE 40MG VIAL IV SCH ×2 (08:29→22:30)
[2022-03-09] MEDS: diphenhydrAMINE 50MG/ML VIAL (J1200) IV SCH ×2 (08:29→22:30)
[2022-03-09] MEDS: NYSTATIN 500,000 U/5 ML SUSP UDC PO SCH ×4 (08:30→21:00)
[2022-03-09] MEDS: SODIUM CHLORIDE 0.9% INJ 10 ML SYR IV SCH (08:30)
[2022-03-09] MEDS: FLUoxetine 20MG CAP GT SCH (08:31)
[2022-03-09] MEDS: MIDODRINE 5 MG TAB JT SCH ×3 (08:31→15:31)
[2022-03-09] MEDS: levETIRAcetam 250MG TABLET (KEPPRA) JT SCH ×2 (08:31→22:29)
[2022-03-09] MEDS: ENOXAPARIN 60MG/0.6ML SYRINGE (J1650 PER 10MG) SC SCH (09:00)
[2022-03-09] MEDS: SODIUM CHLORIDE 0.9% INJ 10 ML SYR IV PRN (10:45)
[2022-03-09] MEDS: KETOROLAC 30 MG/ML 1ML VIAL IV PRN ×2 (13:40→18:34)
[2022-03-09] MEDS ORDERED: LIDOCAINE 2% 100MG/5ML SDV (FOR ANES.) As Ordered ONE (20:06)
[2022-03-09] MEDS ORDERED: dexameTHASONE 4 MG/ML 1ML VIAL (J1100 PER 1MG) As Ordered ONE (20:06)
[2022-03-09] MEDS ORDERED: propofoL 200 MG/20 ML VIAL As Ordered ONE (20:06)
[2022-03-09] MEDS ORDERED: MIDAZOLAM INJ 2MG/2ML VIAL (J2250 PER 1MG) As Ordered ONE (20:06)
[2022-03-09] MEDS ORDERED: fentaNYL 100 MCG/2 ML INJECTION As Ordered ONE ×3 (20:06→20:49)
[2022-03-09] MEDS ORDERED: ROCURONIUM BROMIDE 50 MG/5 ML VIAL As Ordered ONE (20:06)
[2022-03-09] MEDS ORDERED: ONDANSETRON 4MG/2ML VIAL As Ordered ONE (20:06)
[2022-03-09] MEDS ORDERED: SUGAMMADEX SODIUM 500 MG/5 ML VIAL (BRIDION) As Ordered ONE (20:11)
[2022-03-09] MEDS ORDERED: LIDOCAINE 1% SDV 30ML VIAL As Ordered ONE (20:18)
[2022-03-09] MEDS ORDERED: BUPIVACAINE HCL 0.25% 30ML VIAL As Ordered ONE (20:18)
[2022-03-09] MEDS ORDERED: ONDANSETRON 4MG/2ML VIAL IV PRN (20:55)
[2022-03-09] MEDS ORDERED: oxyCODONE 5MG TAB PO PRN (20:55)
[2022-03-09] MEDS ORDERED: LR 1,000 ML IV SCH (20:55)
[2022-03-09] MEDS ORDERED: METOCLOPRAMIDE INJ 10MG/2ML VIAL (J2765 PER 1) IV PRN (20:55)
[2022-03-09] MEDS: fentaNYL 100 MCG/2 ML INJECTION IV PRN ×2 (21:00→21:10)
[2022-03-09] MEDS: ONDANSETRON 4MG/2ML VIAL IV PRN (21:07)
[2022-03-09] MEDS: zolPIDEM TARTRATE 5 MG TAB JT SCH (22:29)
[2022-03-09] MEDS: VANCOMYCIN HCL 1,000 MG, VIAL MATE ADAPTER 1 EACH in NS 250 ML IV SCH (22:30)
[2022-03-10] VITALS (12 sets, daily range): BP systolic 90–127; BP diastolic 54–99; O2SAT 96–97
[2022-03-10] MEDS: KETOROLAC 30 MG/ML 1ML VIAL IV PRN ×2 (00:56→23:09)
[2022-03-10] MEDS: SODIUM CHLORIDE 0.9% INJ 10 ML SYR IV PRN (01:31)
[2022-03-10] MEDS: PIPERACILLIN/TAZOBACTAM SOD 4.5 GM in D5W MINI-BAG PLUS 50 ML IV SCH ×4 (04:55→23:10)
[2022-03-10] MEDS: HYDROMORPHONE HCL 0.5 MG/ 0.5 ML SYRINGE (J1170 PER 1) IV PRN ×5 (05:06→21:11)
[2022-03-10 08:12] LABS: HEMATOCRIT 27.2 % (36.0-47.0); HEMOGLOBIN 8.5 g/dl (12.0-15.5); MEAN CORPUSCULAR HEMOGLOBIN 27.1 pg (27.0-33.0); MEAN CORPUSCULAR HGB CONC 31.3 g/dl (32.0-36.5); MEAN CORPUSCULAR VOLUME 86.6 fl (80.0-96.0); PLATELET COUNT, AUTOMATED 305 10^3/uL (150-450); RED BLOOD COUNT 3.14 10^6/uL (4.00-5.40); WHITE BLOOD COUNT 9.6 10^3/uL (4.0-10.0)
[2022-03-10 08:37] LABS: ALBUMIN 1.8 GM/DL (3.2-5.2); ALT/SGPT 31 U/L (12-78); BILIRUBIN,TOTAL 0.6 MG/DL (0.2-1.0); BLOOD UREA NITROGEN 7 MG/DL (7-18); CALCIUM LEVEL 8.9 MG/DL (8.5-10.1); CARBON DIOXIDE LEVEL 22 MEQ/L (21-32); CHLORIDE LEVEL 113 MEQ/L (98-107); CREATININE FOR GFR 0.81 MG/DL (0.55-1.30); GLOMERULAR FILTRATION RATE > 60.0 (>58); GLUCOSE, FASTING 189 MG/DL (70-100); POTASSIUM SERUM 3.9 MEQ/L (3.5-5.1); SODIUM LEVEL 143 MEQ/L (136-145); TOTAL PROTEIN 5.9 GM/DL (6.4-8.2)
[2022-03-10] MEDS: MIDODRINE 5 MG TAB JT SCH ×3 (08:43→15:51)
[2022-03-10] MEDS: levETIRAcetam 250MG TABLET (KEPPRA) JT SCH ×2 (08:43→21:12)
[2022-03-10] MEDS: FLUoxetine 20MG CAP GT SCH (08:43)
[2022-03-10] MEDS: ENOXAPARIN 60MG/0.6ML SYRINGE (J1650 PER 10MG) SC SCH (08:44)
[2022-03-10] MEDS: PANTOPRAZOLE 40MG VIAL IV SCH ×2 (08:44→21:12)
[2022-03-10] MEDS: diphenhydrAMINE 50MG/ML VIAL (J1200) IV SCH ×2 (08:44→21:12)
[2022-03-10] MEDS: SODIUM CHLORIDE 0.9% INJ 10 ML SYR IV SCH (08:46)
[2022-03-10] MEDS: NYSTATIN 500,000 U/5 ML SUSP UDC PO SCH ×4 (08:48→21:00)
[2022-03-10] MEDS: VANCOMYCIN HCL 1,000 MG, VIAL MATE ADAPTER 1 EACH in NS 250 ML IV SCH ×2 (09:13→21:12)
[2022-03-10] MEDS: zolPIDEM TARTRATE 5 MG TAB JT SCH (21:12)
[2022-03-11] MEDS: ONDANSETRON 4MG/2ML VIAL IV PRN ×3 (01:05→20:06)
[2022-03-11] MEDS: HYDROMORPHONE HCL 0.5 MG/ 0.5 ML SYRINGE (J1170 PER 1) IV PRN ×7 (01:06→23:25)
[2022-03-11] MEDS ORDERED: hydrOXYzine 25 MG TAB PO ONE (03:15)
[2022-03-11] MEDS: PIPERACILLIN/TAZOBACTAM SOD 4.5 GM in D5W MINI-BAG PLUS 50 ML IV SCH ×4 (04:35→22:25)
[2022-03-11 06:00] VITALS: BP 110/67
[2022-03-11 08:17] VITALS: BP 116/68
[2022-03-11] MEDS: levETIRAcetam 250MG TABLET (KEPPRA) JT SCH ×2 (08:20→20:07)
[2022-03-11] MEDS: PANTOPRAZOLE 40MG VIAL IV SCH ×2 (08:20→20:06)
[2022-03-11] MEDS: SODIUM CHLORIDE 0.9% INJ 10 ML SYR IV SCH (08:20)
[2022-03-11] MEDS: diphenhydrAMINE 50MG/ML VIAL (J1200) IV SCH ×2 (08:20→20:06)
[2022-03-11] MEDS: FLUoxetine 20MG CAP GT SCH (08:20)
[2022-03-11] MEDS: MIDODRINE 5 MG TAB JT SCH ×3 (08:20→16:17)
[2022-03-11] MEDS: ENOXAPARIN 60MG/0.6ML SYRINGE (J1650 PER 10MG) SC SCH (08:21)
[2022-03-11] MEDS: NYSTATIN 500,000 U/5 ML SUSP UDC PO SCH ×4 (08:21→20:07)
[2022-03-11 09:06] LABS: HEMATOCRIT 27.7 % (36.0-47.0); HEMOGLOBIN 8.5 g/dl (12.0-15.5); MEAN CORPUSCULAR HEMOGLOBIN 27.5 pg (27.0-33.0); MEAN CORPUSCULAR HGB CONC 30.7 g/dl (32.0-36.5); MEAN CORPUSCULAR VOLUME 89.6 fl (80.0-96.0); PLATELET COUNT, AUTOMATED 333 10^3/uL (150-450); RED BLOOD COUNT 3.09 10^6/uL (4.00-5.40)
[2022-03-11 09:29] LABS: ALBUMIN 1.9 GM/DL (3.2-5.2); ALT/SGPT 23 U/L (12-78); BILIRUBIN,TOTAL 0.4 MG/DL (0.2-1.0); BLOOD UREA NITROGEN 6 MG/DL (7-18); C REACTIVE PROTEIN QUANTITATIV 6.73 MG/DL (0.00-0.30); CALCIUM LEVEL 8.6 MG/DL (8.5-10.1); CARBON DIOXIDE LEVEL 23 MEQ/L (21-32); CHLORIDE LEVEL 113 MEQ/L (98-107); CREATININE FOR GFR 1.04 MG/DL (0.55-1.30); GLOMERULAR FILTRATION RATE > 60.0 (>58); GLUCOSE, FASTING 104 MG/DL (70-100); POTASSIUM SERUM 3.6 MEQ/L (3.5-5.1); SODIUM LEVEL 146 MEQ/L (136-145); TOTAL PROTEIN 5.8 GM/DL (6.4-8.2)
[2022-03-11] MEDS: KETOROLAC 30 MG/ML 1ML VIAL IV PRN ×2 (11:17→22:24)
[2022-03-11] MEDS: VANCOMYCIN HCL 750 MG, VIAL MATE ADAPTER 1 EACH in NS 250 ML IV SCH ×2 (12:20→23:25)
[2022-03-11 12:25] VITALS: BP 112/68
[2022-03-11 14:00] VITALS: BP 116/68
[2022-03-11 16:15] VITALS: BP 119/71
[2022-03-11 20:04] VITALS: BP 131/74
[2022-03-11] MEDS: zolPIDEM TARTRATE 5 MG TAB JT SCH (20:06)
[2022-03-11] MEDS: SODIUM CHLORIDE 0.9% INJ 10 ML SYR IV PRN ×2 (20:08→23:26)
[2022-03-11] MEDS: METOCLOPRAMIDE INJ 10MG/2ML VIAL (J2765 PER 1) IV PRN (23:25)
[2022-03-12 00:06] VITALS: O2SAT 96
[2022-03-12] MEDS: ONDANSETRON 4MG/2ML VIAL IV PRN ×2 (03:28→20:37)
[2022-03-12] MEDS: PIPERACILLIN/TAZOBACTAM SOD 4.5 GM in D5W MINI-BAG PLUS 50 ML IV SCH ×2 (03:28→10:30)
[2022-03-12] MEDS: HYDROMORPHONE HCL 0.5 MG/ 0.5 ML SYRINGE (J1170 PER 1) IV PRN ×5 (03:29→20:39)
[2022-03-12 04:36] VITALS: BP 116/55
[2022-03-12 07:03] LABS: HEMATOCRIT 25.1 % (36.0-47.0); HEMOGLOBIN 7.7 g/dl (12.0-15.5); MEAN CORPUSCULAR HEMOGLOBIN 27.3 pg (27.0-33.0); MEAN CORPUSCULAR HGB CONC 30.7 g/dl (32.0-36.5); PLATELET COUNT, AUTOMATED 331 10^3/uL (150-450); RED BLOOD COUNT 2.82 10^6/uL (4.00-5.40); WHITE BLOOD COUNT 6.1 10^3/uL (4.0-10.0)
[2022-03-12 07:27] LABS: ALBUMIN 1.9 GM/DL (3.2-5.2); BILIRUBIN,TOTAL 0.4 MG/DL (0.2-1.0); CALCIUM LEVEL 7.9 MG/DL (8.5-10.1); CREATININE FOR GFR 1.1 MG/DL (0.55-1.30); GLOMERULAR FILTRATION RATE 57.7 (>58); POTASSIUM SERUM 3.5 MEQ/L (3.5-5.1); TOTAL PROTEIN 5.4 GM/DL (6.4-8.2)
[2022-03-12] MEDS: MIDODRINE 5 MG TAB JT SCH ×4 (08:00→16:51)
[2022-03-12] MEDS: PANTOPRAZOLE 40MG VIAL IV SCH ×2 (08:45→20:38)
[2022-03-12] MEDS: ENOXAPARIN 60MG/0.6ML SYRINGE (J1650 PER 10MG) SC SCH (08:46)
[2022-03-12] MEDS: levETIRAcetam 250MG TABLET (KEPPRA) JT SCH ×2 (08:48→20:39)
[2022-03-12] MEDS: NYSTATIN 500,000 U/5 ML SUSP UDC PO SCH ×4 (08:48→20:09)
[2022-03-12] MEDS: FLUoxetine 20MG CAP GT SCH (08:48)
[2022-03-12] MEDS: SODIUM CHLORIDE 0.9% INJ 10 ML SYR IV SCH (08:49)
[2022-03-12] MEDS: diphenhydrAMINE 50MG/ML VIAL (J1200) IV SCH ×2 (10:30→20:37)
[2022-03-12] MEDS: VANCOMYCIN HCL 750 MG, VIAL MATE ADAPTER 1 EACH in NS 250 ML IV SCH (12:26)
[2022-03-12] MEDS: SODIUM CHLORIDE 0.9% INJ 10 ML SYR IV PRN ×3 (13:35→20:37)
[2022-03-12 14:00] VITALS: BP 150/74
[2022-03-12 14:40] VITALS: O2SAT 97
[2022-03-12] MEDS: DAPTOmycin 850 MG in NS 50 ML IV SCH (20:38)
[2022-03-12] MEDS: zolPIDEM TARTRATE 5 MG TAB JT SCH (20:39)
[2022-03-12 22:00] VITALS: BP 111/58
[2022-03-12 23:20] VITALS: O2SAT 94
[2022-03-13] MEDS: HYDROMORPHONE HCL 0.5 MG/ 0.5 ML SYRINGE (J1170 PER 1) IV PRN ×5 (01:49→16:00)
[2022-03-13] MEDS: ONDANSETRON 4MG/2ML VIAL IV PRN ×2 (01:50→16:00)
[2022-03-13] MEDS: SODIUM CHLORIDE 0.9% INJ 10 ML SYR IV PRN ×2 (01:52→05:03)
[2022-03-13] MEDS: METOCLOPRAMIDE INJ 10MG/2ML VIAL (J2765 PER 1) IV PRN (05:02)
[2022-03-13 06:00] VITALS: BP 125/75
[2022-03-13 06:36] LABS: HEMOGLOBIN 7.7 g/dl (12.0-15.5); MEAN CORPUSCULAR HEMOGLOBIN 27.3 pg (27.0-33.0); MEAN CORPUSCULAR HGB CONC 30.8 g/dl (32.0-36.5); MEAN CORPUSCULAR VOLUME 88.7 fl (80.0-96.0); PLATELET COUNT, AUTOMATED 405 10^3/uL (150-450); RED BLOOD COUNT 2.82 10^6/uL (4.00-5.40); WHITE BLOOD COUNT 5.3 10^3/uL (4.0-10.0)
[2022-03-13 07:05] LABS: ALT/SGPT 20 U/L (12-78); BILIRUBIN,TOTAL 0.3 MG/DL (0.2-1.0); BLOOD UREA NITROGEN 4 MG/DL (7-18); CALCIUM LEVEL 8.8 MG/DL (8.5-10.1); CARBON DIOXIDE LEVEL 26 MEQ/L (21-32); CHLORIDE LEVEL 110 MEQ/L (98-107); CREATININE FOR GFR 0.91 MG/DL (0.55-1.30); GLOMERULAR FILTRATION RATE > 60.0 (>58); GLUCOSE, FASTING 107 MG/DL (70-100); POTASSIUM SERUM 3.2 MEQ/L (3.5-5.1); SODIUM LEVEL 143 MEQ/L (136-145); TOTAL PROTEIN 5.5 GM/DL (6.4-8.2)
[2022-03-13] MEDS ORDERED: POTASSIUM CHLORIDE 10MEQ SR TABLET PO ONE (08:00)
[2022-03-13] MEDS ORDERED: DAPT500V8 IV (08:17)
[2022-03-13] MEDS: ENOXAPARIN 60MG/0.6ML SYRINGE (J1650 PER 10MG) SC SCH (08:29)
[2022-03-13] MEDS: levETIRAcetam 250MG TABLET (KEPPRA) JT SCH (08:30)
[2022-03-13] MEDS: FLUoxetine 20MG CAP GT SCH (08:30)
[2022-03-13] MEDS: diphenhydrAMINE 50MG/ML VIAL (J1200) IV SCH (08:31)
[2022-03-13] MEDS: MIDODRINE 5 MG TAB JT SCH ×3 (08:32→17:15)
[2022-03-13] MEDS: SODIUM CHLORIDE 0.9% INJ 10 ML SYR IV SCH (08:32)
[2022-03-13] MEDS: NYSTATIN 500,000 U/5 ML SUSP UDC PO SCH ×3 (08:34→17:00)
[2022-03-13 08:56] LABS: FERRITIN 195 NG/ML (8-252); IRON (FE) 100 UG/DL (50-170); PERCENT SATURATION 46.7 % (13.2-45.0); TOTAL IRON BINDING CAPACITY 214 UG/DL (250-450)
[2022-03-13] MEDS ORDERED: PANTOPRAZOLE 40MG VIAL IV SCH (09:00)
[2022-03-13] MEDS ORDERED: PANTOPRAZOLE 40MG TAB (PROTONIX) PO SCH (09:00)
[2022-03-13 09:13] LABS: HEMATOCRIT 27.6 % (36.0-47.0); HEMOGLOBIN 8.4 g/dl (12.0-15.5)
[2022-03-13] MEDS: KCL 10MEQ/100ML SWI (KRUN) 10 MEQ in IV 1 EA IV SCH ×4 (10:38→14:09)
[2022-03-13] MEDS: KETOROLAC 30 MG/ML 1ML VIAL IV PRN (10:52)
[2022-03-13 14:00] VITALS: BP 138/79
[2022-03-13] MEDS ORDERED: diphenhydrAMINE 50MG/ML VIAL (J1200) IV ONE (14:10)
[2022-03-13] MEDS: ACETAMINOPHEN TAB 650MG DOSE (2X325MG) PO PRN (14:52)
[2022-03-13 15:23] VITALS: BP 152/78
[2022-03-13 15:38] VITALS: BP 148/56
[2022-03-13 16:51] VITALS: BP 147/83
[2022-03-13] MEDS: DAPTOmycin 850 MG in NS 50 ML IV SCH (17:29)
[2022-03-13 18:16] VITALS: BP 151/69
== END 2022-03-13 18:25 | disposition home or self-care (01) | DRG 720 ==
LOC: M ED 11:26 → M ED INP 19:57 → ENRESERV 21:13 → M 4MAIN 23:10 → M MSPAV 03-09 22:00
PROVIDERS: ADMIT Internal Medicine; ATTEND General Practice
PROC: 0JBD0ZZ Excision of Right Upper Arm Subcutaneous Tissue and Fascia, Open Approach (ICD-10-PCS; principal; 2022-03-13)
PROC: 0J9D0ZX Drainage of Right Upper Arm Subcutaneous Tissue and Fascia, Open Approach, Diagnostic (ICD-10-PCS; 2022-03-13)
PROC: 30233N1 Transfusion of Nonautologous Red Blood Cells into Peripheral Vein, Percutaneous Approach (ICD-10-PCS; 2022-03-13)
DX: A41.9 Sepsis, unspecified organism (principal); D68.59 Other primary thrombophilia; K91.2 Postsurgical malabsorption, not elsewhere classified; K31.84 Gastroparesis; F41.9 Anxiety disorder, unspecified; F32.A Depression, unspecified; E87.6 Hypokalemia; K21.9 Gastro-esophageal reflux disease without esophagitis; L73.9 Follicular disorder, unspecified; L02.411 Cutaneous abscess of right axilla; L03.111 Cellulitis of right axilla; D50.9 Iron deficiency anemia, unspecified; Z79.899 Other long term (current) drug therapy; Z88.2 Allergy status to sulfonamides; Z88.6 Allergy status to analgesic agent; Z88.5 Allergy status to narcotic agent; Z86.718 Personal history of other venous thrombosis and embolism; Z86.16 Personal history of COVID-19; Z90.49 Acquired absence of other specified parts of digestive tract; Z88.1 Allergy status to other antibiotic agents; Z88.8 Allergy status to other drugs, medicaments and biological substances; Z91.018 Allergy to other foods

== ENCOUNTER → 2022-03-30 | Outpatient (CLI) | payer BC, OTHER ==
[~2022-03-30] MED LIST changes: +ALBU2.5V10 INH; -ALBU83IN INH; +DAPT500V8 IV; +LEVE10003 JT; +MIDO5TA JT; +NYST50SS PO; +ZOLP10TA2 JT
[2022-03-30 08:33] LABS: HEMATOCRIT 36.6 % (36.0-47.0); HEMOGLOBIN 11.7 g/dl (12.0-15.5); LYMPH % 19.6 % (24.0-44.0); MEAN CORPUSCULAR HEMOGLOBIN 27.8 pg (27.0-33.0); MEAN CORPUSCULAR VOLUME 86.9 fl (80.0-96.0); NEUTROPHILS % 65.1 % (36.0-66.0); PLATELET COUNT, AUTOMATED 341 10^3/uL (150-450); RED BLOOD COUNT 4.21 10^6/uL (4.00-5.40); WHITE BLOOD COUNT 6.2 10^3/uL (4.0-10.0)
[2022-03-30 08:34] LABS: BASO % 0.5 % (0.0-1.0); EOS # 0.4 10^3/uL (0.0-0.5); EOS % 6.6 % (0.0-3.0); LYMPH # 1.2 10^3/uL (1.5-5.0); MONO # 0.5 10^3/uL (0.0-0.8); MONO % 7.9 % (2.0-8.0)
[2022-03-30 09:01] LABS: BLOOD UREA NITROGEN 9 MG/DL (7-18); CALCIUM LEVEL 9.2 MG/DL (8.5-10.1); CARBON DIOXIDE LEVEL 25 MEQ/L (21-32); CHLORIDE LEVEL 106 MEQ/L (98-107); CREATININE FOR GFR 0.96 MG/DL (0.55-1.30); GLOMERULAR FILTRATION RATE > 60.0 (>58); GLUCOSE, FASTING 111 MG/DL (70-100); POTASSIUM SERUM 4.3 MEQ/L (3.5-5.1); SODIUM LEVEL 137 MEQ/L (136-145)
== END ==
LOC: M RAD 07:36
PROVIDERS: ATTEND Surgery
DX: L02.411 Cutaneous abscess of right axilla (principal)

== ENCOUNTER → 2022-03-30 | Outpatient (CLI) | payer BC, OTHER ==
[2022-03-30 08:29] LABS: BASO % 0.5 % (0.0-1.0); EOS # 0.4 10^3/uL (0.0-0.5); EOS % 6.6 % (0.0-3.0); HEMATOCRIT 36.6 % (36.0-47.0); HEMOGLOBIN 11.7 g/dl (12.0-15.5); LYMPH # 1.2 10^3/uL (1.5-5.0); LYMPH % 19.6 % (24.0-44.0); MEAN CORPUSCULAR HEMOGLOBIN 27.8 pg (27.0-33.0); MEAN CORPUSCULAR VOLUME 86.9 fl (80.0-96.0); MONO # 0.5 10^3/uL (0.0-0.8); MONO % 7.9 % (2.0-8.0); NEUTROPHILS % 65.1 % (36.0-66.0); PLATELET COUNT, AUTOMATED 341 10^3/uL (150-450); RED BLOOD COUNT 4.21 10^6/uL (4.00-5.40); WHITE BLOOD COUNT 6.2 10^3/uL (4.0-10.0)
[2022-03-30 08:50] LABS: ERYTHROCYTE SEDIMENTATION RATE 39 mm/hr (0-20)
== END ==
LOC: M LAB 07:44
PROVIDERS: ATTEND Internal Medicine Infectious Disease
DX: A49.02 Methicillin resistant Staphylococcus aureus infection, unspecified site (principal)

== ENCOUNTER 2022-04-15 11:52 | Inpatient (IN) | payer BC, OTHER ==
[~2022-04-15] VITALS: Ht 170.2 cm; Wt 83.3 kg
[~2022-04-15 11:52] MED LIST changes: +HEPA100I11 IV; -HEPAINJ10 IV; +SODIUM CHLORIDE 0.9% INJ 10 ML SYR IV SCH
[2022-04-15 13:55] LABS: BASO % 0.3 % (0.0-1.0); EOS # 0.4 10^3/uL (0.0-0.5); EOS % 3.6 % (0.0-3.0); HEMATOCRIT 35.2 % (36.0-47.0); LYMPH % 9.8 % (24.0-44.0); MEAN CORPUSCULAR HEMOGLOBIN 28.4 pg (27.0-33.0); MEAN CORPUSCULAR HGB CONC 31.3 g/dl (32.0-36.5); MEAN CORPUSCULAR VOLUME 90.7 fl (80.0-96.0); MONO # 0.7 10^3/uL (0.0-0.8); MONO % 7.2 % (2.0-8.0); NEUTROPHILS # 7.9 10^3/uL (1.5-8.5); NEUTROPHILS % 78.7 % (36.0-66.0); PLATELET COUNT, AUTOMATED 304 10^3/uL (150-450); RED BLOOD COUNT 3.88 10^6/uL (4.00-5.40); WHITE BLOOD COUNT 10.1 10^3/uL (4.0-10.0)
[2022-04-15] MEDS ORDERED: SODIUM CHLORIDE 0.9% INJ 10 ML SYR IV PRN (14:00)
[2022-04-15] MEDS ORDERED: MORPHINE 4 MG/ML 1ML VIAL/SYRINGE IV ONE (14:05)
[2022-04-15] MEDS ORDERED: ONDANSETRON 4MG 2ML VIAL IV ONE (14:05)
[2022-04-15 14:18] LABS: ALT/SGPT 52 U/L (12-78); BILIRUBIN,DIRECT 0.4 MG/DL (0.0-0.2); BILIRUBIN,TOTAL 0.5 MG/DL (0.2-1.0); BLOOD UREA NITROGEN 9 MG/DL (7-18); C REACTIVE PROTEIN QUANTITATIV 2.71 MG/DL (0.00-0.30); CALCIUM LEVEL 9.4 MG/DL (8.5-10.1); CARBON DIOXIDE LEVEL 29 MEQ/L (21-32); CHLORIDE LEVEL 106 MEQ/L (98-107); CREATININE FOR GFR 0.76 MG/DL (0.55-1.30); ERYTHROCYTE SEDIMENTATION RATE 43 mm/hr (0-20); GLOMERULAR FILTRATION RATE > 60.0 (>58); GLUCOSE, FASTING 111 MG/DL (70-100); POTASSIUM SERUM 4.5 MEQ/L (3.5-5.1); SODIUM LEVEL 140 MEQ/L (136-145); TOTAL PROTEIN 7.4 GM/DL (6.4-8.2)
[2022-04-15 14:52] LABS: RSV AMPLIFICATION NEGATIVE (NEGATIVE)
[2022-04-15] MEDS ORDERED: diphenhydrAMINE 50MG/ML VIAL (J1200) IV STA (15:30)
[2022-04-15] MEDS ORDERED: HYDROMORPHONE HCL 0.5 MG/ 0.5 ML SYRINGE (J1170 PER 1) IV ONE (15:30)
[2022-04-15] MEDS ORDERED: DAPTOmycin 500 MG in NS 50 ML IV SCH (15:30)
[2022-04-15] MEDS ORDERED: VANCOMYCIN HCL 1,750 MG in NS 250 ML IV ONE (15:45)
[2022-04-15] MEDS ORDERED: VANCOMYCIN HCL 1,000 MG, VIAL MATE ADAPTER 1 EACH in NS 250 ML IV ONE (15:55)
[2022-04-15] MEDS ORDERED: VANCOMYCIN HCL 750 MG, VIAL MATE ADAPTER 1 EACH in NS 250 ML IV ONE (17:00)
[2022-04-15] MEDS ORDERED: VANCOMYCIN 750MG/25ML VIAL As Ordered ONE (17:29)
[2022-04-15] MEDS ORDERED: NS 1,000 ML IV ONE (18:00)
[2022-04-15] MEDS ORDERED: HOME MED LIST COMPLETE! XX SCH (18:05)
[2022-04-15] MEDS ORDERED: LORazepam 0.5 MG TAB GT PRN (20:15)
[2022-04-15] MEDS ORDERED: oxyCODONE 5MG TAB JT PRN ×2 (20:15→20:35)
[2022-04-15] MEDS: NS 1,000 ML IV SCH (20:18)
[2022-04-15 20:30] VITALS: BP 121/71
[2022-04-15] MEDS: HYDROMORPHONE HCL 0.5 MG/ 0.5 ML SYRINGE (J1170 PER 1) IV PRN (20:58)
[2022-04-15] MEDS: PANTOPRAZOLE 40MG VIAL IV SCH (22:07)
[2022-04-15] MEDS: diphenhydrAMINE 50MG/ML VIAL (J1200) IV SCH (22:07)
[2022-04-15] MEDS: zolPIDEM TARTRATE 5 MG TAB JT SCH (22:08)
[2022-04-15] MEDS: ENOXAPARIN 60MG/0.6ML SYRINGE (J1650 PER 10MG) SC SCH (22:08)
[2022-04-15] MEDS: levETIRAcetam ORAL SOLUTION 500 MG/5 ML UDC GT SCH (22:08)
[2022-04-16] MEDS: VANCOMYCIN HCL 1,000 MG, VIAL MATE ADAPTER 1 EACH in NS 250 ML IV SCH ×2 (00:13→11:33)
[2022-04-16] MEDS: HYDROMORPHONE HCL 0.5 MG/ 0.5 ML SYRINGE (J1170 PER 1) IV PRN ×7 (00:18→21:35)
[2022-04-16 02:00] VITALS: BP 126/74
[2022-04-16] MEDS: ONDANSETRON 4MG 2ML VIAL IV PRN (04:21)
[2022-04-16] MEDS: NS 1,000 ML IV SCH ×3 (05:34→20:03)
[2022-04-16 06:00] VITALS: BP 107/69
[2022-04-16 06:22] LABS: BASO % 0.4 % (0.0-1.0); EOS # 0.4 10^3/uL (0.0-0.5); EOS % 4.6 % (0.0-3.0); HEMATOCRIT 32.1 % (36.0-47.0); LYMPH # 0.9 10^3/uL (1.5-5.0); LYMPH % 11.8 % (24.0-44.0); MEAN CORPUSCULAR HEMOGLOBIN 28.3 pg (27.0-33.0); MEAN CORPUSCULAR HGB CONC 31.2 g/dl (32.0-36.5); MEAN CORPUSCULAR VOLUME 90.9 fl (80.0-96.0); MONO # 0.6 10^3/uL (0.0-0.8); MONO % 7.2 % (2.0-8.0); NEUTROPHILS % 75.4 % (36.0-66.0); PLATELET COUNT, AUTOMATED 289 10^3/uL (150-450); RED BLOOD COUNT 3.53 10^6/uL (4.00-5.40); WHITE BLOOD COUNT 7.9 10^3/uL (4.0-10.0)
[2022-04-16 07:21] LABS: ALBUMIN 3.1 GM/DL (3.2-5.2); ALT/SGPT 36 U/L (12-78); BILIRUBIN,TOTAL 1.1 MG/DL (0.2-1.0); BLOOD UREA NITROGEN 6 MG/DL (7-18); CALCIUM LEVEL 8.6 MG/DL (8.5-10.1); CARBON DIOXIDE LEVEL 27 MEQ/L (21-32); CHLORIDE LEVEL 108 MEQ/L (98-107); CREATININE FOR GFR 0.58 MG/DL (0.55-1.30); GLOMERULAR FILTRATION RATE > 60.0 (>58); GLUCOSE, FASTING 103 MG/DL (70-100); MAGNESIUM LEVEL 2.6 MG/DL (1.8-2.4); PHOSPHORUS LEVEL 3.5 MG/DL (2.5-4.9); POTASSIUM SERUM 4.1 MEQ/L (3.5-5.1); SODIUM LEVEL 140 MEQ/L (136-145); TOTAL PROTEIN 6.4 GM/DL (6.4-8.2)
[2022-04-16] MEDS: PANTOPRAZOLE 40MG VIAL IV SCH ×2 (09:04→20:03)
[2022-04-16] MEDS: levETIRAcetam ORAL SOLUTION 500 MG/5 ML UDC GT SCH ×2 (09:04→20:03)
[2022-04-16] MEDS: FLUoxetine 20MG CAP GT SCH (09:04)
[2022-04-16] MEDS: diphenhydrAMINE 50MG/ML VIAL (J1200) IV SCH ×2 (09:04→20:03)
[2022-04-16 10:00] VITALS: BP 98/61
[2022-04-16 14:00] VITALS: BP 99/60
[2022-04-16 18:00] VITALS: BP 98/70
[2022-04-16] MEDS: TPN XX SCH (18:02)
[2022-04-16 20:03] VITALS: BP 102/69
[2022-04-16] MEDS: zolPIDEM TARTRATE 5 MG TAB JT SCH (20:04)
[2022-04-16] MEDS: ENOXAPARIN 60MG/0.6ML SYRINGE (J1650 PER 10MG) SC SCH (20:04)
[2022-04-17] MEDS: VANCOMYCIN HCL 1,000 MG, VIAL MATE ADAPTER 1 EACH in NS 250 ML IV SCH ×2 (00:30→12:54)
[2022-04-17] MEDS: HYDROMORPHONE HCL 0.5 MG/ 0.5 ML SYRINGE (J1170 PER 1) IV PRN ×7 (01:41→23:41)
[2022-04-17] MEDS: NS 1,000 ML IV SCH ×3 (04:52→20:37)
[2022-04-17 06:00] VITALS: BP 96/55
[2022-04-17 06:07] LABS: BASO % 0.3 % (0.0-1.0); EOS # 0.4 10^3/uL (0.0-0.5); EOS % 4.7 % (0.0-3.0); HEMATOCRIT 29.8 % (36.0-47.0); HEMOGLOBIN 9.2 g/dl (12.0-15.5); LYMPH # 0.9 10^3/uL (1.5-5.0); LYMPH % 12.2 % (24.0-44.0); MEAN CORPUSCULAR HEMOGLOBIN 28.6 pg (27.0-33.0); MEAN CORPUSCULAR HGB CONC 30.9 g/dl (32.0-36.5); MEAN CORPUSCULAR VOLUME 92.5 fl (80.0-96.0); MONO # 0.6 10^3/uL (0.0-0.8); MONO % 8.5 % (2.0-8.0); NEUTROPHILS # 5.5 10^3/uL (1.5-8.5); NEUTROPHILS % 73.8 % (36.0-66.0); PLATELET COUNT, AUTOMATED 265 10^3/uL (150-450); RED BLOOD COUNT 3.22 10^6/uL (4.00-5.40); WHITE BLOOD COUNT 7.4 10^3/uL (4.0-10.0)
[2022-04-17 06:43] LABS: ALBUMIN 2.8 GM/DL (3.2-5.2); ALT/SGPT 28 U/L (12-78); BILIRUBIN,TOTAL 0.3 MG/DL (0.2-1.0); BLOOD UREA NITROGEN 13 MG/DL (7-18); CALCIUM LEVEL 8.1 MG/DL (8.5-10.1); CARBON DIOXIDE LEVEL 29 MEQ/L (21-32); CHLORIDE LEVEL 109 MEQ/L (98-107); GLOMERULAR FILTRATION RATE > 60.0 (>58); GLUCOSE, FASTING 133 MG/DL (70-100); MAGNESIUM LEVEL 2.6 MG/DL (1.8-2.4); PHOSPHORUS LEVEL 3.1 MG/DL (2.5-4.9); POTASSIUM SERUM 4.7 MEQ/L (3.5-5.1); SODIUM LEVEL 142 MEQ/L (136-145); TOTAL PROTEIN 5.5 GM/DL (6.4-8.2)
[2022-04-17 07:51] LABS: C REACTIVE PROTEIN QUANTITATIV 3.35 MG/DL (0.00-0.30)
[2022-04-17] MEDS: diphenhydrAMINE 50MG/ML VIAL (J1200) IV SCH ×2 (09:46→20:10)
[2022-04-17] MEDS: PANTOPRAZOLE 40MG VIAL IV SCH ×2 (09:46→20:10)
[2022-04-17] MEDS: levETIRAcetam ORAL SOLUTION 500 MG/5 ML UDC GT SCH ×2 (09:46→20:10)
[2022-04-17] MEDS: FLUoxetine 20MG CAP GT SCH (09:46)
[2022-04-17 10:00] VITALS: BP 100/59
[2022-04-17 14:00] VITALS: BP 105/64
[2022-04-17] MEDS: ONDANSETRON 4MG 2ML VIAL IV PRN (16:44)
[2022-04-17 18:00] VITALS: BP 107/65
[2022-04-17] MEDS: ENOXAPARIN 60MG/0.6ML SYRINGE (J1650 PER 10MG) SC SCH (20:11)
[2022-04-17] MEDS: zolPIDEM TARTRATE 5 MG TAB JT SCH (20:11)
[2022-04-17 22:00] VITALS: BP 108/65
[2022-04-18] MEDS: VANCOMYCIN HCL 1,000 MG, VIAL MATE ADAPTER 1 EACH in NS 250 ML IV SCH (00:22)
[2022-04-18 02:00] VITALS: BP 91/57
[2022-04-18] MEDS: NS 1,000 ML IV SCH ×3 (04:26→18:45)
[2022-04-18] MEDS: ONDANSETRON 4MG 2ML VIAL IV PRN ×3 (04:27→22:08)
[2022-04-18] MEDS: HYDROMORPHONE HCL 0.5 MG/ 0.5 ML SYRINGE (J1170 PER 1) IV PRN ×6 (04:27→22:08)
[2022-04-18] MEDS: VANCOMYCIN HCL 750 MG, VIAL MATE ADAPTER 1 EACH in NS 250 ML IV SCH ×3 (05:53→22:08)
[2022-04-18 06:00] VITALS: BP 90/47
[2022-04-18 06:36] LABS: HEMATOCRIT 28.9 % (36.0-47.0); HEMOGLOBIN 8.9 g/dl (12.0-15.5); MEAN CORPUSCULAR HEMOGLOBIN 27.6 pg (27.0-33.0); MEAN CORPUSCULAR HGB CONC 30.8 g/dl (32.0-36.5); MEAN CORPUSCULAR VOLUME 89.5 fl (80.0-96.0); PLATELET COUNT, AUTOMATED 278 10^3/uL (150-450); RED BLOOD COUNT 3.23 10^6/uL (4.00-5.40); WHITE BLOOD COUNT 4.9 10^3/uL (4.0-10.0)
[2022-04-18 07:07] LABS: BLOOD UREA NITROGEN 5 MG/DL (7-18); CALCIUM LEVEL 8.5 MG/DL (8.5-10.1); CARBON DIOXIDE LEVEL 27 MEQ/L (21-32); CHLORIDE LEVEL 111 MEQ/L (98-107); CREATININE FOR GFR 0.61 MG/DL (0.55-1.30); GLOMERULAR FILTRATION RATE > 60.0 (>58); GLUCOSE, FASTING 110 MG/DL (70-100); POTASSIUM SERUM 4.5 MEQ/L (3.5-5.1); SODIUM LEVEL 143 MEQ/L (136-145)
[2022-04-18] MEDS: PANTOPRAZOLE 40MG VIAL IV SCH ×2 (08:34→19:50)
[2022-04-18] MEDS: diphenhydrAMINE 50MG/ML VIAL (J1200) IV SCH ×2 (08:35→19:50)
[2022-04-18] MEDS: levETIRAcetam ORAL SOLUTION 500 MG/5 ML UDC GT SCH ×2 (08:35→19:49)
[2022-04-18] MEDS: FLUoxetine 20MG CAP GT SCH (08:35)
[2022-04-18 10:00] VITALS: BP 102/58
[2022-04-18 14:00] VITALS: BP 106/64
[2022-04-18] MEDS ORDERED: diphenhydrAMINE 50MG/ML VIAL (J1200) IV ONE (15:55)
[2022-04-18 18:00] VITALS: BP 113/76
[2022-04-18] MEDS: TPN XX SCH (18:42)
[2022-04-18] MEDS ORDERED: SODIUM CHLORIDE 0.9% INJ 10 ML SYR IV PRN (19:00)
[2022-04-18] MEDS: zolPIDEM TARTRATE 5 MG TAB JT SCH (19:49)
[2022-04-18] MEDS: ENOXAPARIN 60MG/0.6ML SYRINGE (J1650 PER 10MG) SC SCH (19:50)
[2022-04-18 22:00] VITALS: BP 110/74
[2022-04-19] MEDS: NS 1,000 ML IV SCH ×2 (01:31→14:01)
[2022-04-19] MEDS: HYDROMORPHONE HCL 0.5 MG/ 0.5 ML SYRINGE (J1170 PER 1) IV PRN ×5 (01:32→16:32)
[2022-04-19 02:00] VITALS: BP 106/62
[2022-04-19 06:00] VITALS: BP 109/62
[2022-04-19] MEDS ORDERED: diphenhydrAMINE 50MG/ML VIAL (J1200) IV ONE (06:00)
[2022-04-19] MEDS: VANCOMYCIN HCL 750 MG, VIAL MATE ADAPTER 1 EACH in NS 250 ML IV SCH ×2 (06:01→14:01)
[2022-04-19] MEDS: ONDANSETRON 4MG 2ML VIAL IV PRN ×2 (06:09→14:00)
[2022-04-19 07:58] LABS: HEMATOCRIT 29.9 % (36.0-47.0); HEMOGLOBIN 9.5 g/dl (12.0-15.5); MEAN CORPUSCULAR HEMOGLOBIN 28.4 pg (27.0-33.0); MEAN CORPUSCULAR HGB CONC 31.8 g/dl (32.0-36.5); MEAN CORPUSCULAR VOLUME 89.5 fl (80.0-96.0); PLATELET COUNT, AUTOMATED 309 10^3/uL (150-450); RED BLOOD COUNT 3.34 10^6/uL (4.00-5.40); WHITE BLOOD COUNT 5.9 10^3/uL (4.0-10.0)
[2022-04-19 08:38] LABS: BLOOD UREA NITROGEN 11 MG/DL (7-18); C REACTIVE PROTEIN QUANTITATIV 1.35 MG/DL (0.00-0.30); CALCIUM LEVEL 8.9 MG/DL (8.5-10.1); CARBON DIOXIDE LEVEL 28 MEQ/L (21-32); CHLORIDE LEVEL 108 MEQ/L (98-107); CREATININE FOR GFR 0.67 MG/DL (0.55-1.30); GLOMERULAR FILTRATION RATE > 60.0 (>58); GLUCOSE, FASTING 110 MG/DL (70-100); POTASSIUM SERUM 4.6 MEQ/L (3.5-5.1); SODIUM LEVEL 141 MEQ/L (136-145)
[2022-04-19] MEDS ORDERED: SODIUM CHLORIDE 0.9% INJ 10 ML SYR IV SCH (09:00)
[2022-04-19] MEDS: diphenhydrAMINE 50MG/ML VIAL (J1200) IV SCH (09:36)
[2022-04-19] MEDS: FLUoxetine 20MG CAP GT SCH (09:36)
[2022-04-19] MEDS: levETIRAcetam ORAL SOLUTION 500 MG/5 ML UDC GT SCH (09:36)
[2022-04-19] MEDS: PANTOPRAZOLE 40MG VIAL IV SCH (09:36)
[2022-04-19 10:00] VITALS: BP 106/69
[2022-04-19 14:00] VITALS: BP 110/72
[2022-04-19] MEDS ORDERED: MUPI2OI TOP (16:44)
[2022-04-19] MEDS ORDERED: HIBI4LIQ EX (16:44)
== END 2022-04-19 17:20 | disposition home or self-care (01) | DRG 383 ==
LOC: M ED 11:52 → M ED INP 16:47 → M MS5PR 20:30
PROVIDERS: ADMIT Internal Medicine; ATTEND Internal Medicine
DX: L03.211 Cellulitis of face (principal); D68.59 Other primary thrombophilia; K91.2 Postsurgical malabsorption, not elsewhere classified; Z93.1 Gastrostomy status; Z93.4 Other artificial openings of gastrointestinal tract status; K31.84 Gastroparesis; K76.0 Fatty (change of) liver, not elsewhere classified; G40.909 Epilepsy, unspecified, not intractable, without status epilepticus; K21.9 Gastro-esophageal reflux disease without esophagitis; F32.A Depression, unspecified; M54.9 Dorsalgia, unspecified; L03.213 Periorbital cellulitis; F41.9 Anxiety disorder, unspecified; B95.62 Methicillin resistant Staphylococcus aureus infection as the cause of diseases classified elsewhere; D50.9 Iron deficiency anemia, unspecified; Z90.49 Acquired absence of other specified parts of digestive tract; Z79.899 Other long term (current) drug therapy; Z88.2 Allergy status to sulfonamides; Z88.5 Allergy status to narcotic agent; Z88.1 Allergy status to other antibiotic agents; Z88.6 Allergy status to analgesic agent; Z88.8 Allergy status to other drugs, medicaments and biological substances; Z91.018 Allergy to other foods; Z86.718 Personal history of other venous thrombosis and embolism; Z86.14 Personal history of Methicillin resistant Staphylococcus aureus infection; Z87.19 Personal history of other diseases of the digestive system

== ENCOUNTER → 2022-07-13 | Outpatient (REF) | payer OTHER, BC ==
[~2022-07-13] MED LIST changes: +HIBI4LIQ EX; +MUPI2OI TOP; -SODIUM CHLORIDE 0.9% INJ 10 ML SYR IV SCH
[2022-07-13 09:29] LABS: ALBUMIN 3.9 GM/DL (3.2-5.2); ALT/SGPT 18 U/L (12-78); BILIRUBIN,TOTAL 0.3 MG/DL (0.2-1.0); BLOOD UREA NITROGEN 13 MG/DL (7-18); CALCIUM LEVEL 9.8 MG/DL (8.5-10.1); CARBON DIOXIDE LEVEL 28 MEQ/L (21-32); CHLORIDE LEVEL 103 MEQ/L (98-107); CHOLESTEROL LEVEL 296 MG/DL (<200); CHOLESTEROL RISK RATIO 4.698 (<5); CREATININE FOR GFR 0.71 MG/DL (0.55-1.30); GLOMERULAR FILTRATION RATE > 60.0 (>58); GLUCOSE, FASTING 123 MG/DL (70-100); HDL CHOLESTEROL 63 MG/DL (>40); LDL CHOLESTEROL 202 MG/DL (<100); MAGNESIUM LEVEL 2.4 MG/DL (1.8-2.4); NON-HDL-C 233 MG/DL; PHOSPHORUS LEVEL 3.9 MG/DL (2.5-4.9); POTASSIUM SERUM 4.6 MEQ/L (3.5-5.1); SODIUM LEVEL 139 MEQ/L (136-145); TOTAL PROTEIN 7.2 GM/DL (6.4-8.2); TRIGLYCERIDES LEVEL 154 MG/DL (<150)
== END ==
LOC: M LAB REF 08:21
PROVIDERS: ATTEND Internal Medicine Gastroenterology
DX: K31.84 Gastroparesis (principal); K21.00 Gastro-esophageal reflux disease with esophagitis, without bleeding; Z98.84 Bariatric surgery status

== ENCOUNTER → 2022-08-20 | Outpatient (CLI) | payer BC, OTHER ==
[2022-08-20 18:46] LABS: ALT/SGPT 46 U/L (12-78); BILIRUBIN,TOTAL 0.3 MG/DL (0.2-1.0); BLOOD UREA NITROGEN 11 MG/DL (7-18); CALCIUM LEVEL 9.2 MG/DL (8.5-10.1); CARBON DIOXIDE LEVEL 28 MEQ/L (21-32); CHLORIDE LEVEL 103 MEQ/L (98-107); CHOLESTEROL LEVEL 385 MG/DL (<200); CHOLESTEROL RISK RATIO 8.191 (<5); CREATININE FOR GFR 0.86 MG/DL (0.55-1.30); GLOMERULAR FILTRATION RATE > 60.0 (>58); GLUCOSE, FASTING 114 MG/DL (70-100); HDL CHOLESTEROL 47 MG/DL (>40); LDL CHOLESTEROL 297 MG/DL (<100); MAGNESIUM LEVEL 2.5 MG/DL (1.8-2.4); NON-HDL-C 338 MG/DL; PHOSPHORUS LEVEL 4.1 MG/DL (2.5-4.9); SODIUM LEVEL 138 MEQ/L (136-145); TOTAL PROTEIN 7.2 GM/DL (6.4-8.2); TRIGLYCERIDES LEVEL 203 MG/DL (<150)
== END ==
LOC: M PLALAB 13:34
PROVIDERS: ATTEND Internal Medicine Gastroenterology
DX: K31.84 Gastroparesis (principal)

== ENCOUNTER → 2022-08-20 | Outpatient (CLI) | payer BC, OTHER ==
[2022-08-20 18:27] LABS: HEMATOCRIT 38.5 % (36.0-47.0)
[2022-08-20 18:31] LABS: EOS # 0.1 10^3/uL (0.0-0.5); EOS % 3.3 % (0.0-3.0); HEMATOCRIT 40.9 % (36.0-47.0); HEMOGLOBIN 11.6 g/dl (12.0-15.5); LYMPH # 1.1 10^3/uL (1.5-5.0); LYMPH % 26.9 % (24.0-44.0); MEAN CORPUSCULAR HEMOGLOBIN 25.1 pg (27.0-33.0); MEAN CORPUSCULAR HGB CONC 28.4 g/dl (32.0-36.5); MEAN CORPUSCULAR VOLUME 88.5 fl (80.0-96.0); MONO # 0.4 10^3/uL (0.0-0.8); MONO % 9.7 % (2.0-8.0); NEUTROPHILS # 2.3 10^3/uL (1.5-8.5); NEUTROPHILS % 58.8 % (36.0-66.0); PLATELET COUNT, AUTOMATED 325 10^3/uL (150-450); RED BLOOD COUNT 4.62 10^6/uL (4.00-5.40); WHITE BLOOD COUNT 3.9 10^3/uL (4.0-10.0)
[2022-08-20 19:12] LABS: ALBUMIN 3.9 GM/DL (3.2-5.2); BLOOD UREA NITROGEN 11 MG/DL (7-18); CALCIUM LEVEL 9.4 MG/DL (8.5-10.1); CARBON DIOXIDE LEVEL 29 MEQ/L (21-32); CHLORIDE LEVEL 103 MEQ/L (98-107); CREATININE FOR GFR 0.83 MG/DL (0.55-1.30); FERRITIN 12 NG/ML (8-252); GLOMERULAR FILTRATION RATE > 60.0 (>58); GLUCOSE, FASTING 117 MG/DL (70-100); POTASSIUM SERUM 3.9 MEQ/L (3.5-5.1); SODIUM LEVEL 139 MEQ/L (136-145)
[2022-08-20 20:45] LABS: PTH INTACT 57.7 PG/ML (18.5-88.0); TOTAL 25(OH) VITAMIN D 8.4 NG/ML (30.0-100.0)
[2022-08-20 20:52] LABS: VITAMIN B12 LEVEL 356 PG/ML (247-911)
== END ==
LOC: M PLALAB 13:30
PROVIDERS: ATTEND Family Medicine
DX: D50.0 Iron deficiency anemia secondary to blood loss (chronic) (principal)

== ENCOUNTER 2022-09-10 07:20 | Outpatient (CLI) | payer BC, OTHER ==
[~2022-09-10] VITALS: Ht 170.2 cm; Wt 82.4 kg
[2022-09-10 07:20] VITALS: BP 128/80
[~2022-09-10 07:20] MED LIST changes: +ALBUTEROL SULFATE 2.5 MG/0.5 ML INH NEB SOLN INH PRN; +EPINEPHrine INJ 1 MG/ML 1ML AMP IM PRN; +diphenhydrAMINE 50MG/ML VIAL IV PRN; +methylPREDNISolone 125MG 2ML VIAL IV PRN
[2022-09-10] MEDS ORDERED: NS 1,000 ML IV SCH (07:30)
[2022-09-10] MEDS ORDERED: diphenhydrAMINE 50MG IV PRIOR TO INFUSION IV ONE (07:30)
[2022-09-10] MEDS ORDERED: IRON SUCROSE 500 MG in NS 250 ML OVER 4 HRS IV ONE (07:30)
[2022-09-10] MEDS ORDERED: ONDANSETRON 4MG 2ML VIAL IV ONE (07:30)
[2022-09-10] MEDS ORDERED: ROSU5TAB5 PO (07:46)
[2022-09-10 09:10] VITALS: BP 119/58
[2022-09-10 10:10] VITALS: BP 128/60
[2022-09-10 11:10] VITALS: BP 113/66
[2022-09-10 12:35] VITALS: BP 153/65
[2022-09-11] MEDS ORDERED: OXYC100C5 JT (12:12)
[2022-09-11] MEDS ORDERED: ATIV1TAB10 GT (16:25)
== END 2022-09-10 12:35 | disposition home or self-care (01) ==
LOC: M INFU 07:20
PROVIDERS: ATTEND Family Medicine
DX: D50.0 Iron deficiency anemia secondary to blood loss (chronic) (principal); Z88.6 Allergy status to analgesic agent; Z88.2 Allergy status to sulfonamides; Z88.5 Allergy status to narcotic agent; Z88.8 Allergy status to other drugs, medicaments and biological substances
CPT/HCPCS: 96365; 96366; 96375; J1200; J1756; J2405

== ENCOUNTER → 2022-09-30 | Outpatient (REF) | payer BC, OTHER ==
[~2022-09-30] MED LIST changes: -ALBUTEROL SULFATE 2.5 MG/0.5 ML INH NEB SOLN INH PRN; -EPINEPHrine INJ 1 MG/ML 1ML AMP IM PRN; +ROSU5TAB5 PO; -diphenhydrAMINE 50MG/ML VIAL IV PRN; -methylPREDNISolone 125MG 2ML VIAL IV PRN
[2022-09-30 22:37] LABS: BASO % 0.5 % (0.0-1.0); EOS # 0.2 10^3/uL (0.0-0.5); EOS % 3.2 % (0.0-3.0); HEMOGLOBIN 10.4 g/dl (12.0-15.5); LYMPH # 1.5 10^3/uL (1.5-5.0); LYMPH % 24.7 % (24.0-44.0); MEAN CORPUSCULAR HGB CONC 30.6 g/dl (32.0-36.5); MEAN CORPUSCULAR VOLUME 88.3 fl (80.0-96.0); MONO # 0.6 10^3/uL (0.0-0.8); MONO % 9.3 % (2.0-8.0); NEUTROPHILS # 3.7 10^3/uL (1.5-8.5); NEUTROPHILS % 62.1 % (36.0-66.0); PLATELET COUNT, AUTOMATED 277 10^3/uL (150-450); RED BLOOD COUNT 3.85 10^6/uL (4.00-5.40); WHITE BLOOD COUNT 5.9 10^3/uL (4.0-10.0)
[2022-09-30 22:55] LABS: MAGNESIUM LEVEL 1.8 MG/DL (1.8-2.4)
[2022-09-30 23:00] LABS: ALBUMIN 3.5 G/DL (3.2-5.2); ALKALINE PHOSPHATASE 118 U/L (46-116); ALT/SGPT 19 U/L (7.0-40); AST/SGOT 24 U/L (<34); BILIRUBIN,TOTAL 0.4 MG/DL (0.3-1.2); BLOOD UREA NITROGEN < 5 MG/DL (9-23); CALCIUM LEVEL 8.7 MG/DL (8.5-10.1); CARBON DIOXIDE LEVEL 25 MMOL/L (20-31); CHLORIDE LEVEL 103 MMOL/L (98-107); CHOLESTEROL LEVEL 198 MG/DL (<200); CHOLESTEROL RISK RATIO 4.84 (<5); CREATININE FOR GFR 0.59 MG/DL (0.55-1.30); GLOMERULAR FILTRATION RATE > 60.0 (>58); GLUCOSE, FASTING 112 MG/DL (60-100); HDL CHOLESTEROL 40.9 MG/DL (>40); LDL CHOLESTEROL 99.1 MG/DL (<100); NON-HDL-C 157 MG/DL; PHOSPHORUS LEVEL 3.8 MG/DL (2.5-4.9); POTASSIUM SERUM 4.2 MMOL/L (3.5-5.1); SODIUM LEVEL 140 MMOL/L (136-145); TOTAL PROTEIN 5.9 G/DL (5.7-8.2); TRIGLYCERIDES LEVEL 290 MG/DL (<150)
== END ==
LOC: M LAB REF 22:18
PROVIDERS: ATTEND Internal Medicine Gastroenterology
DX: K31.84 Gastroparesis (principal); Z98.84 Bariatric surgery status; K21.00 Gastro-esophageal reflux disease with esophagitis, without bleeding

== ENCOUNTER → 2022-10-09 | Outpatient (CLI) | payer BC, OTHER ==
[~2022-10-09] VITALS: Ht 168.9 cm; Wt 82.9 kg
[~2022-10-09] MED LIST changes: +LEVE10003 AD; -LEVE10003 JT; +ZOLP5TAB JT
[2022-10-09 08:05] VITALS: BP 131/73
== END ==
LOC: M PAL 07:59
PROVIDERS: ATTEND Nurse Practitioner Adult Health
DX: G40.909 Epilepsy, unspecified, not intractable, without status epilepticus (principal); K31.84 Gastroparesis; D50.9 Iron deficiency anemia, unspecified; M54.9 Dorsalgia, unspecified; D41.9 Neoplasm of uncertain behavior of unspecified urinary organ; F32.A Depression, unspecified; K21.9 Gastro-esophageal reflux disease without esophagitis; R10.9 Unspecified abdominal pain; Z93.1 Gastrostomy status; Z87.19 Personal history of other diseases of the digestive system; D68.59 Other primary thrombophilia; Z86.16 Personal history of COVID-19; Z90.49 Acquired absence of other specified parts of digestive tract; Z86.718 Personal history of other venous thrombosis and embolism; Z98.84 Bariatric surgery status; Z51.5 Encounter for palliative care; Z93.4 Other artificial openings of gastrointestinal tract status; Z79.891 Long term (current) use of opiate analgesic; Z79.899 Other long term (current) drug therapy; Z91.018 Allergy to other foods; Z88.1 Allergy status to other antibiotic agents; Z88.6 Allergy status to analgesic agent; Z88.5 Allergy status to narcotic agent; Z88.2 Allergy status to sulfonamides

== ENCOUNTER 2022-11-08 12:09 | Emergency (ER) | payer BC, OTHER ==
[~2022-11-08] VITALS: Ht 170.2 cm; Wt 77.3 kg
[~2022-11-08 12:09] MED LIST changes: +NYST-38 PO; -NYST50SS PO
[2022-11-08] MEDS ORDERED: LIDOCAINE 2% 5ML JELLY UROJET TOP ONE (12:45)
[2022-11-08] MEDS ORDERED: levETIRAcetam INJection 1,000 MG in D5W 100 ML IV ONE (12:50)
[2022-11-08] MEDS ORDERED: METOCLOPRAMIDE INJ 10MG/2ML VIAL IV ONE ×2 (13:30→17:35)
[2022-11-08] MEDS ORDERED: diphenhydrAMINE 50MG/ML VIAL IV STA (13:33)
[2022-11-08] MEDS ORDERED: ONDANSETRON 4MG 2ML VIAL IV ONE (13:35)
[2022-11-08] MEDS: LORazepam 2 MG/ML VIAL IV PRN ×3 (13:41→22:23)
[2022-11-08 13:43] LABS: BASO % 0.5 % (0.0-1.0); EOS % 0.2 % (0.0-3.0); HEMATOCRIT 43.2 % (36.0-47.0); HEMOGLOBIN 13.8 g/dl (12.0-15.5); LYMPH # 0.7 10^3/uL (1.5-5.0); LYMPH % 12.2 % (24.0-44.0); MEAN CORPUSCULAR HEMOGLOBIN 27.7 pg (27.0-33.0); MEAN CORPUSCULAR HGB CONC 31.9 g/dl (32.0-36.5); MEAN CORPUSCULAR VOLUME 86.6 fl (80.0-96.0); MONO # 0.2 10^3/uL (0.0-0.8); MONO % 4.2 % (2.0-8.0); NEUTROPHILS # 4.7 10^3/uL (1.5-8.5); NEUTROPHILS % 82.6 % (36.0-66.0); PLATELET COUNT, AUTOMATED 355 10^3/uL (150-450); RED BLOOD COUNT 4.99 10^6/uL (4.00-5.40); WHITE BLOOD COUNT 5.7 10^3/uL (4.0-10.0)
[2022-11-08] MEDS: HYDROMORPHONE HCL 0.5 MG/ 0.5 ML SYRINGE IV PRN ×3 (13:48→22:23)
[2022-11-08 13:53] LABS: ALBUMIN 4.3 G/DL (3.2-5.2); ALKALINE PHOSPHATASE 144 U/L (46-116); ALT/SGPT 54 U/L (7.0-40); AST/SGOT 29 U/L (<34); BILIRUBIN,DIRECT 0.1 MG/DL (<0.4); BILIRUBIN,TOTAL 0.5 MG/DL (0.3-1.2); BLOOD UREA NITROGEN 12 MG/DL (9-23); CARBON DIOXIDE LEVEL 24 MMOL/L (20-31); CHLORIDE LEVEL 104 MMOL/L (98-107); CREATININE FOR GFR 0.55 MG/DL (0.55-1.30); GLOMERULAR FILTRATION RATE > 60.0 (>58); GLUCOSE, FASTING 166 MG/DL (60-100); PHOSPHORUS LEVEL 4.1 MG/DL (2.5-4.9); POTASSIUM SERUM 4.2 MMOL/L (3.5-5.1); SODIUM LEVEL 139 MMOL/L (136-145); TOTAL PROTEIN 7.1 G/DL (5.7-8.2)
[2022-11-08] MEDS ORDERED: HYDROMORPHONE HCL 0.5 MG/ 0.5 ML SYRINGE IV ONE (16:05)
[2022-11-08 17:30] LABS: APPEARANCE, URINE MANUAL CLOUDY (CLEAR); BILIRUBIN, URINE MANUAL NEGATIVE (NEGATIVE); BLOOD URINE MANUAL NEGATIVE (NEGATIVE); COLOR, URINE MANUAL YELLOW (YELLOW); GLUCOSE, URINE (UA) MANUAL NEGATIVE (NEGATIVE); KETONE, URINE MANUAL NEGATIVE (NEGATIVE); LEUKOCYTE ESTERASE, URINE MAN TRACE (NEGATIVE); NITRITE, URINE MANUAL NEGATIVE (NEGATIVE); PH,URINE MAN 7.5 UNITS (5.0 - 7.0); PROTEIN, URINE MANUAL NEGATIVE (NEGATIVE); UROBILINOGEN, URINE MANUAL NORMAL (NORMAL)
[2022-11-08 17:50] LABS: BACTERIA, URINE LARGE AMOUNT; RBC, URINE NONE SEEN /hpf (0-3); SQUAMOUS EPITHELIAL CELL URINE LARGE AMOUNT /hpf (SMALL AMT)
[2022-11-08 19:24] LABS: RSV AMPLIFICATION NEGATIVE (NEGATIVE)
[2022-11-08] MEDS ORDERED: [UNRECOGNIZED DRUG - CODE] IV (21:48)
[2022-11-08] MEDS ORDERED: APTI1TAB4 JT (21:48)
[2022-11-08] MEDS ORDERED: ZOLP5TAB JT (21:48)
[2022-11-08] MEDS ORDERED: ROSU10TA6 GT (21:48)
[2022-11-08] MEDS ORDERED: FLUO20SO JT (21:48)
[2022-11-08] MEDS ORDERED: ALBU8.5H INH (21:51)
[2022-11-08] MEDS ORDERED: VITA500038 JT (21:51)
[2022-11-08] MEDS ORDERED: HOME MED LIST COMPLETE! XX SCH (21:55)
[2022-11-08] MEDS ORDERED: oxyCODONE 5MG TAB PO PRN (22:00)
[2022-11-08 22:57] VITALS: BP 115/69
== END 2022-11-08 23:04 | disposition home or self-care (01) ==
LOC: M ED 12:09 → M ED INP 12:10 → UNDOADMOB 12:10 → M ED INP 23:04
DX: G40.909 Epilepsy, unspecified, not intractable, without status epilepticus (principal); K21.9 Gastro-esophageal reflux disease without esophagitis; F32.9 Major depressive disorder, single episode, unspecified; Z98.84 Bariatric surgery status; Z79.899 Other long term (current) drug therapy; Z88.6 Allergy status to analgesic agent; Z88.2 Allergy status to sulfonamides; Z88.8 Allergy status to other drugs, medicaments and biological substances; Z88.5 Allergy status to narcotic agent; Z91.018 Allergy to other foods
CPT/HCPCS: 70450; 74176; 80048; 80076; 80180; 81000; 82330; 83605; 83735; 84100; 85025; 87631; 93041; 94760; 96374; 96375; 99285; J1170; J1200; J1953; J2060; J2405; J2765

== ENCOUNTER → 2022-11-15 | Outpatient (REF) | payer OTHER, BC ==
[~2022-11-15] MED LIST changes: +ALBU8.5H INH; +APTI1TAB4 JT; +FLUO20SO JT; +ROSU10TA6 GT; +VITA500038 JT; +[UNRECOGNIZED DRUG - CODE] IV
[2022-11-15 10:47] LABS: BASO % 0.5 % (0.0-1.0); EOS # 0.3 10^3/uL (0.0-0.5); EOS % 4.2 % (0.0-3.0); HEMATOCRIT 37.3 % (36.0-47.0); HEMOGLOBIN 11.7 g/dl (12.0-15.5); LYMPH # 1.9 10^3/uL (1.5-5.0); LYMPH % 29.4 % (24.0-44.0); MEAN CORPUSCULAR HEMOGLOBIN 28.1 pg (27.0-33.0); MEAN CORPUSCULAR HGB CONC 31.4 g/dl (32.0-36.5); MEAN CORPUSCULAR VOLUME 89.7 fl (80.0-96.0); MONO # 0.7 10^3/uL (0.0-0.8); NEUTROPHILS # 3.5 10^3/uL (1.5-8.5); NEUTROPHILS % 54.6 % (36.0-66.0); PLATELET COUNT, AUTOMATED 290 10^3/uL (150-450); RED BLOOD COUNT 4.16 10^6/uL (4.00-5.40); WHITE BLOOD COUNT 6.4 10^3/uL (4.0-10.0)
[2022-11-15 11:18] LABS: MAGNESIUM LEVEL 2.1 MG/DL (1.8-2.4)
[2022-11-15 11:19] LABS: ALBUMIN 3.6 G/DL (3.2-5.2); ALKALINE PHOSPHATASE 119 U/L (46-116); ALT/SGPT 29 U/L (7.0-40); AST/SGOT 27 U/L (<34); BILIRUBIN,TOTAL 0.3 MG/DL (0.3-1.2); BLOOD UREA NITROGEN 9 MG/DL (9-23); CALCIUM LEVEL 9.3 MG/DL (8.5-10.1); CARBON DIOXIDE LEVEL 32 MMOL/L (20-31); CHLORIDE LEVEL 101 MMOL/L (98-107); CHOLESTEROL LEVEL 149 MG/DL (<200); CHOLESTEROL RISK RATIO 4.04 (<5); CREATININE FOR GFR 0.59 MG/DL (0.55-1.30); GLOMERULAR FILTRATION RATE > 60.0 (>58); GLUCOSE, FASTING 76 MG/DL (60-100); HDL CHOLESTEROL 36.8 MG/DL (>40); LDL CHOLESTEROL 74.8 MG/DL (<100); NON-HDL-C 112 MG/DL; PHOSPHORUS LEVEL 4.5 MG/DL (2.5-4.9); POTASSIUM SERUM 4.3 MMOL/L (3.5-5.1); SODIUM LEVEL 140 MMOL/L (136-145); TOTAL PROTEIN 6.2 G/DL (5.7-8.2); TRIGLYCERIDES LEVEL 187 MG/DL (<150)
== END ==
LOC: M LAB REF 09:55
PROVIDERS: ATTEND Internal Medicine Gastroenterology
DX: K31.84 Gastroparesis (principal); Z98.84 Bariatric surgery status; K21.00 Gastro-esophageal reflux disease with esophagitis, without bleeding

== ENCOUNTER 2022-11-30 06:02 | Inpatient (IN) | payer BC, OTHER ==
[~2022-11-30] VITALS: Ht 170.2 cm; Wt 86.5 kg
[2022-11-30] MEDS ORDERED: NS 1,000 ML IV SCH (07:40)
[2022-11-30] MEDS ORDERED: MORPHINE 4 MG/ML 1ML VIAL IV ONE ×2 (07:40→11:15)
[2022-11-30] MEDS ORDERED: ONDANSETRON 4MG 2ML VIAL IV ONE (07:40)
[2022-11-30 09:03] LABS: BASO % 0.3 % (0.0-1.0); HEMATOCRIT 28.3 % (36.0-47.0); LYMPH % 8.9 % (24.0-44.0); MEAN CORPUSCULAR HEMOGLOBIN 28.3 pg (27.0-33.0); MEAN CORPUSCULAR HGB CONC 31.8 g/dl (32.0-36.5); MONO % 3.4 % (2.0-8.0); NEUTROPHILS % 86.6 % (36.0-66.0); PLATELET COUNT, AUTOMATED 258 10^3/uL (150-450); RED BLOOD COUNT 3.18 10^6/uL (4.00-5.40)
[2022-11-30 09:04] LABS: LYMPH # 0.5 10^3/uL (1.5-5.0); MONO # 0.2 10^3/uL (0.0-0.8); NEUTROPHILS # 5.2 10^3/uL (1.5-8.5)
[2022-11-30 09:15] LABS: LIPASE 28 U/L (12-53)
[2022-11-30 09:32] LABS: ALBUMIN 3.8 G/DL (3.2-5.2); ALKALINE PHOSPHATASE 141 U/L (46-116); ALT/SGPT 74 U/L (7.0-40); AST/SGOT 26 U/L (<34); BILIRUBIN,DIRECT 0.2 MG/DL (<0.4); BILIRUBIN,TOTAL 0.6 MG/DL (0.3-1.2); BLOOD UREA NITROGEN 16 MG/DL (9-23); CALCIUM LEVEL 8.1 MG/DL (8.5-10.1); CARBON DIOXIDE LEVEL 13 MMOL/L (20-31); CHLORIDE LEVEL 117 MMOL/L (98-107); GLOMERULAR FILTRATION RATE > 60.0 (>58); GLUCOSE, FASTING 156 MG/DL (60-100); SODIUM LEVEL 146 MMOL/L (136-145); TOTAL PROTEIN 6.2 G/DL (5.7-8.2)
[2022-11-30] MEDS ORDERED: METOCLOPRAMIDE INJ 10MG/2ML VIAL IV ONE (11:15)
[2022-11-30] MEDS ORDERED: LORazepam 2 MG/ML 1ML VIAL IV STA (11:57)
[2022-11-30 12:17] LABS: APPEARANCE, URINE MANUAL CLOUDY (CLEAR); COLOR, URINE MANUAL YELLOW (YELLOW)
[2022-11-30 12:18] LABS: BILIRUBIN, URINE MANUAL NEGATIVE (NEGATIVE); GLUCOSE, URINE (UA) MANUAL NEGATIVE (NEGATIVE); KETONE, URINE MANUAL 2+ mg/dL (NEGATIVE); NITRITE, URINE MANUAL NEGATIVE (NEGATIVE); PROTEIN, URINE MANUAL 2+ mg/dL (NEGATIVE); SPECIFIC GRAVITY,URINE MANUAL 1.025 (1.002-1.035)
[2022-11-30 12:19] LABS: BLOOD URINE MANUAL TRACE (NEGATIVE); LEUKOCYTE ESTERASE, URINE MAN POSITIVE (NEGATIVE); UROBILINOGEN, URINE MANUAL 1 MG mg/dl (NORMAL)
[2022-11-30] MEDS ORDERED: HOME MED LIST COMPLETE! XX SCH (12:20)
[2022-11-30 12:34] LABS: BACTERIA, URINE LARGE AMOUNT; HYALINE CAST, URINE NONE SEEN /lpf (0-1); SQUAMOUS EPITHELIAL CELL URINE LARGE AMOUNT /hpf (SMALL AMT)
[2022-11-30 12:35] LABS: MUCUS, URINE MOD AMOUNT (NEGATIVE); YEAST, URINE SMALL AMOUNT
[2022-11-30 12:43] LABS: BLOOD UREA NITROGEN 19 MG/DL (9-23); CALCIUM LEVEL 9.9 MG/DL (8.5-10.1); CARBON DIOXIDE LEVEL 15 MMOL/L (20-31); CHLORIDE LEVEL 112 MMOL/L (98-107); CREATININE FOR GFR 0.63 MG/DL (0.55-1.30); GLOMERULAR FILTRATION RATE > 60.0 (>58); GLUCOSE, FASTING 197 MG/DL (60-100); POTASSIUM SERUM 3.7 MMOL/L (3.5-5.1); SODIUM LEVEL 143 MMOL/L (136-145)
[2022-11-30 12:44] LABS: RSV AMPLIFICATION NEGATIVE (NEGATIVE)
[2022-11-30] MEDS ORDERED: HYDROMORPHONE HCL 0.5 MG/ 0.5 ML SYRINGE IV PRN ×3 (13:35→15:50)
[2022-11-30 13:50] VITALS: BP 162/93
[2022-11-30] MEDS: POTASSIUM CHLORIDE INJ 40 MEQ in NS 0.45% 1,000 ML IV SCH (14:51)
[2022-11-30 15:25] VITALS: BP 159/92
[2022-11-30] MEDS ORDERED: HYDROMORPHONE HCL 0.5 MG/ 0.5 ML SYRINGE IV ONE (16:25)
[2022-11-30] MEDS ORDERED: ACETAMINOPHEN 1000MG 100ML IV BAG IV ONE (16:25)
[2022-11-30] MEDS: METOCLOPRAMIDE INJ 10MG/2ML VIAL IV SCH (16:53)
[2022-11-30] MEDS ORDERED: ACETAMINOPHEN *IV* 1,000 MG IV ONE ×2 (18:00)
[2022-11-30 20:00] VITALS: BP 160/64
[2022-11-30] MEDS: PANTOPRAZOLE 40MG VIAL IV SCH (20:24)
[2022-11-30] MEDS: HYDROmorphone HCL 2MG/ML 1ML VIAL IV PRN (20:24)
[2022-11-30] MEDS: diphenhydrAMINE 50MG/ML VIAL IV SCH (20:24)
[2022-11-30] MEDS: levETIRAcetam INJection 1,000 MG in D5W 100 ML IV SCH (20:24)
[2022-11-30] MEDS: LORazepam 2 MG/ML 1ML VIAL IV SCH (20:24)
[2022-11-30] MEDS ORDERED: LEVETIRACETAM 500 MG/5 ML IV SCH (21:00)
[2022-11-30] MEDS: APTIOM 800 MG JT SCH (21:00)
[2022-12-01] MEDS: POTASSIUM CHLORIDE INJ 40 MEQ in NS 0.45% 1,000 ML IV SCH ×2 (00:08→11:05)
[2022-12-01] MEDS: METOCLOPRAMIDE INJ 10MG/2ML VIAL IV SCH ×4 (00:08→17:32)
[2022-12-01] MEDS: HYDROmorphone HCL 2MG/ML 1ML VIAL IV PRN ×2 (00:09→05:50)
[2022-12-01] MEDS: LORazepam 2 MG/ML 1ML VIAL IV SCH ×4 (03:12→20:23)
[2022-12-01] MEDS: SODIUM CHLORIDE 0.9% INJ 10 ML SYR IV PRN ×3 (03:13→20:48)
[2022-12-01 05:57] VITALS: BP 147/81
[2022-12-01] MEDS ORDERED: ACETAMINOPHEN 1000MG 100ML IV BAG IV ONE (07:00)
[2022-12-01 08:21] VITALS: BP 141/79
[2022-12-01 08:21] LABS: BASO % 0.2 % (0.0-1.0); HEMATOCRIT 40.1 % (36.0-47.0); LYMPH # 1.2 10^3/uL (1.5-5.0); LYMPH % 10.6 % (24.0-44.0); MEAN CORPUSCULAR HEMOGLOBIN 28.8 pg (27.0-33.0); MEAN CORPUSCULAR HGB CONC 32.9 g/dl (32.0-36.5); MEAN CORPUSCULAR VOLUME 87.6 fl (80.0-96.0); MONO # 0.9 10^3/uL (0.0-0.8); MONO % 8.1 % (2.0-8.0); NEUTROPHILS # 9.1 10^3/uL (1.5-8.5); NEUTROPHILS % 80.6 % (36.0-66.0); RED BLOOD COUNT 4.58 10^6/uL (4.00-5.40); WHITE BLOOD COUNT 11.3 10^3/uL (4.0-10.0)
[2022-12-01 08:22] LABS: HEMOGLOBIN 13.2 g/dl (12.0-15.5)
[2022-12-01 08:23] LABS: PLATELET COUNT, AUTOMATED 394 10^3/uL (150-450)
[2022-12-01 08:38] LABS: BLOOD UREA NITROGEN 17 MG/DL (9-23); C REACTIVE PROTEIN QUANTITATIV < 0.40 MG/DL (<1.0); CARBON DIOXIDE LEVEL 23 MMOL/L (20-31); CHLORIDE LEVEL 109 MMOL/L (98-107); CREATININE FOR GFR 0.58 MG/DL (0.55-1.30); GLOMERULAR FILTRATION RATE > 60.0 (>58); GLUCOSE, FASTING 150 MG/DL (60-100); POTASSIUM SERUM 4.1 MMOL/L (3.5-5.1); SODIUM LEVEL 142 MMOL/L (136-145)
[2022-12-01] MEDS: PANTOPRAZOLE 40MG VIAL IV SCH ×2 (09:47→20:22)
[2022-12-01] MEDS: ENOXAPARIN 60MG/0.6ML SYRINGE (J1650 PER 10MG) SC SCH (09:47)
[2022-12-01] MEDS: diphenhydrAMINE 50MG/ML VIAL IV SCH ×2 (09:48→20:22)
[2022-12-01] MEDS: levETIRAcetam INJection 1,000 MG in D5W 100 ML IV SCH ×2 (09:50→20:58)
[2022-12-01] MEDS: SODIUM CHLORIDE 0.9% INJ 10 ML SYR IV SCH (09:52)
[2022-12-01 10:00] VITALS: BP 140/79
[2022-12-01] MEDS: HYDROMORPHONE HCL 0.5 MG/ 0.5 ML SYRINGE IV PRN ×4 (10:56→20:48)
[2022-12-01] MEDS ORDERED: LORazepam 2 MG/ML 1ML VIAL IV STA (13:21)
[2022-12-01 14:00] VITALS: BP 134/72
[2022-12-01 18:00] VITALS: O2SAT 98
[2022-12-01] MEDS: TPN IV SCH (18:44)
[2022-12-01] MEDS: ACETAMINOPHEN 325MG/10.15ML UDC JT PRN (18:53)
[2022-12-01] MEDS: APTIOM 800 MG JT SCH (20:23)
[2022-12-01 21:00] VITALS: BP 143/89
[2022-12-02 00:04] VITALS: O2SAT 97
[2022-12-02] MEDS: HYDROMORPHONE HCL 0.5 MG/ 0.5 ML SYRINGE IV PRN ×6 (00:16→21:55)
[2022-12-02] MEDS: METOCLOPRAMIDE INJ 10MG/2ML VIAL IV SCH ×4 (00:16→17:51)
[2022-12-02] MEDS: LORazepam 2 MG/ML 1ML VIAL IV SCH ×3 (02:49→16:50)
[2022-12-02 04:40] VITALS: BP 108/55
[2022-12-02 06:03] LABS: BASO % 0.3 % (0.0-1.0); HEMATOCRIT 40.2 % (36.0-47.0); HEMOGLOBIN 13.1 g/dl (12.0-15.5); LYMPH # 1.4 10^3/uL (1.5-5.0); LYMPH % 11.9 % (24.0-44.0); MEAN CORPUSCULAR HEMOGLOBIN 28.5 pg (27.0-33.0); MEAN CORPUSCULAR HGB CONC 32.6 g/dl (32.0-36.5); MEAN CORPUSCULAR VOLUME 87.6 fl (80.0-96.0); MONO # 0.9 10^3/uL (0.0-0.8); MONO % 7.7 % (2.0-8.0); NEUTROPHILS % 79.5 % (36.0-66.0); PLATELET COUNT, AUTOMATED 389 10^3/uL (150-450); RED BLOOD COUNT 4.59 10^6/uL (4.00-5.40); WHITE BLOOD COUNT 11.3 10^3/uL (4.0-10.0)
[2022-12-02 06:08] LABS: BLOOD UREA NITROGEN 16 MG/DL (9-23); CALCIUM LEVEL 9.5 MG/DL (8.5-10.1); CARBON DIOXIDE LEVEL 23 MMOL/L (20-31); CHLORIDE LEVEL 103 MMOL/L (98-107); CREATININE FOR GFR 0.51 MG/DL (0.55-1.30); GLOMERULAR FILTRATION RATE > 60.0 (>58); GLUCOSE, FASTING 215 MG/DL (60-100); POTASSIUM SERUM 3.6 MMOL/L (3.5-5.1); SODIUM LEVEL 136 MMOL/L (136-145)
[2022-12-02] MEDS: POTASSIUM CHLORIDE INJ 40 MEQ in NS 0.45% 1,000 ML IV SCH ×2 (06:24→16:52)
[2022-12-02] MEDS: SODIUM CHLORIDE 0.9% INJ 10 ML SYR IV PRN ×4 (06:30→22:21)
[2022-12-02 09:00] VITALS: O2SAT 95
[2022-12-02] MEDS: ENOXAPARIN 60MG/0.6ML SYRINGE (J1650 PER 10MG) SC SCH (09:35)
[2022-12-02] MEDS: diphenhydrAMINE 50MG/ML VIAL IV SCH ×2 (09:35→21:14)
[2022-12-02] MEDS: PANTOPRAZOLE 40MG VIAL IV SCH ×2 (09:36→21:14)
[2022-12-02] MEDS: SODIUM CHLORIDE 0.9% INJ 10 ML SYR IV SCH (09:36)
[2022-12-02] MEDS: levETIRAcetam INJection 1,000 MG in D5W 100 ML IV SCH ×2 (09:36→21:15)
[2022-12-02] MEDS: ACETAMINOPHEN 325MG/10.15ML UDC JT PRN ×2 (12:57→18:48)
[2022-12-02] MEDS ORDERED: PALONOSETRON 0.25MG/5ML VIAL (ALOXI) (FOR ONCOLOGY) IV ONE (13:00)
[2022-12-02 14:00] VITALS: BP 135/85
[2022-12-02] MEDS ORDERED: oxyCODONE 5MG TAB JT PRN (20:00)
[2022-12-02] MEDS: APTIOM 800 MG JT SCH (21:15)
[2022-12-02] MEDS ORDERED: NALOXONE INJ 0.4MG/1ML VIAL IV PRN (21:30)
[2022-12-02 21:55] VITALS: BP 156/96
[2022-12-03] MEDS: LORazepam 2 MG/ML 1ML VIAL IV SCH (00:08)
[2022-12-03] MEDS: METOCLOPRAMIDE INJ 10MG/2ML VIAL IV SCH ×5 (00:08→23:22)
[2022-12-03 01:37] VITALS: O2SAT 93
[2022-12-03] MEDS: POTASSIUM CHLORIDE INJ 40 MEQ in NS 0.45% 1,000 ML IV SCH ×3 (02:43→19:25)
[2022-12-03] MEDS: HYDROMORPHONE HCL 0.5 MG/ 0.5 ML SYRINGE IV PRN ×6 (04:15→23:22)
[2022-12-03 04:50] VITALS: BP 156/98
[2022-12-03 06:48] LABS: BASO # 0.1 10^3/uL (0.0-0.2); BASO % 0.5 % (0.0-1.0); EOS % 0.1 % (0.0-3.0); HEMATOCRIT 41.6 % (36.0-47.0); HEMOGLOBIN 13.3 g/dl (12.0-15.5); LYMPH # 1.5 10^3/uL (1.5-5.0); LYMPH % 14.5 % (24.0-44.0); MEAN CORPUSCULAR HEMOGLOBIN 28.1 pg (27.0-33.0); MEAN CORPUSCULAR VOLUME 87.8 fl (80.0-96.0); MONO # 1.1 10^3/uL (0.0-0.8); MONO % 10.6 % (2.0-8.0); NEUTROPHILS # 7.4 10^3/uL (1.5-8.5); NEUTROPHILS % 73.6 % (36.0-66.0); PLATELET COUNT, AUTOMATED 375 10^3/uL (150-450); RED BLOOD COUNT 4.74 10^6/uL (4.00-5.40); WHITE BLOOD COUNT 10.1 10^3/uL (4.0-10.0)
[2022-12-03 07:19] LABS: BLOOD UREA NITROGEN 13 MG/DL (9-23); CALCIUM LEVEL 9.2 MG/DL (8.5-10.1); CARBON DIOXIDE LEVEL 21 MMOL/L (20-31); CHLORIDE LEVEL 104 MMOL/L (98-107); CREATININE FOR GFR 0.51 MG/DL (0.55-1.30); GLOMERULAR FILTRATION RATE > 60.0 (>58); GLUCOSE, FASTING 133 MG/DL (60-100); POTASSIUM SERUM 4.2 MMOL/L (3.5-5.1); SODIUM LEVEL 134 MMOL/L (136-145)
[2022-12-03] MEDS: PANTOPRAZOLE 40MG VIAL IV SCH ×2 (08:40→20:55)
[2022-12-03] MEDS: diphenhydrAMINE 50MG/ML VIAL IV SCH ×2 (08:40→20:56)
[2022-12-03] MEDS: ENOXAPARIN 60MG/0.6ML SYRINGE (J1650 PER 10MG) SC SCH (08:40)
[2022-12-03] MEDS: levETIRAcetam INJection 1,000 MG in D5W 100 ML IV SCH ×2 (08:41→20:56)
[2022-12-03] MEDS: LORazepam 2 MG/ML 1ML VIAL IV PRN ×2 (08:57→20:55)
[2022-12-03] MEDS: SODIUM CHLORIDE 0.9% INJ 10 ML SYR IV SCH (09:00)
[2022-12-03 12:41] VITALS: O2SAT 97
[2022-12-03] MEDS: oxyCODONE 5MG TAB JT PRN ×2 (13:53→20:57)
[2022-12-03] MEDS: ACETAMINOPHEN 325MG/10.15ML UDC JT PRN (13:54)
[2022-12-03 14:00] VITALS: BP 152/88
[2022-12-03] MEDS: PROCHLORPERAZINE 10MG 2ML VIAL IV PRN (16:01)
[2022-12-03] MEDS: PIPERACILLIN/TAZOBACTAM SOD 3.375 GM in D5W MINI-BAG PLUS 50 ML IV SCH ×2 (16:20→23:22)
[2022-12-03] MEDS: TPN IV SCH (18:37)
[2022-12-03 20:00] VITALS: BP 169/88
[2022-12-03] MEDS: APTIOM 800 MG JT SCH (20:56)
[2022-12-04] MEDS: METOCLOPRAMIDE INJ 10MG/2ML VIAL IV SCH ×3 (05:53→17:33)
[2022-12-04] MEDS: PIPERACILLIN/TAZOBACTAM SOD 3.375 GM in D5W MINI-BAG PLUS 50 ML IV SCH ×4 (05:54→22:25)
[2022-12-04 05:56] LABS: BASO % 0.4 % (0.0-1.0); EOS # 0.1 10^3/uL (0.0-0.5); EOS % 0.8 % (0.0-3.0); HEMATOCRIT 39.7 % (36.0-47.0); HEMOGLOBIN 12.7 g/dl (12.0-15.5); LYMPH # 0.6 10^3/uL (1.5-5.0); LYMPH % 6.8 % (24.0-44.0); MEAN CORPUSCULAR HEMOGLOBIN 28.5 pg (27.0-33.0); MONO # 1.1 10^3/uL (0.0-0.8); MONO % 11.9 % (2.0-8.0); NEUTROPHILS # 7.2 10^3/uL (1.5-8.5); NEUTROPHILS % 78.8 % (36.0-66.0); RED BLOOD COUNT 4.46 10^6/uL (4.00-5.40); WHITE BLOOD COUNT 9.1 10^3/uL (4.0-10.0)
[2022-12-04] MEDS: HYDROMORPHONE HCL 0.5 MG/ 0.5 ML SYRINGE IV PRN ×2 (05:58→09:49)
[2022-12-04 06:00] VITALS: BP 104/65
[2022-12-04 06:04] LABS: PLATELET COUNT, AUTOMATED 263 10^3/uL (150-450)
[2022-12-04] MEDS: POTASSIUM CHLORIDE INJ 40 MEQ in NS 0.45% 1,000 ML IV SCH ×2 (06:54→17:01)
[2022-12-04 07:10] LABS: BLOOD UREA NITROGEN 23 MG/DL (9-23); CALCIUM LEVEL 9.4 MG/DL (8.5-10.1); CARBON DIOXIDE LEVEL 24 MMOL/L (20-31); CHLORIDE LEVEL 103 MMOL/L (98-107); CREATININE FOR GFR 0.65 MG/DL (0.55-1.30); GLOMERULAR FILTRATION RATE > 60.0 (>58); GLUCOSE, FASTING 174 MG/DL (60-100); POTASSIUM SERUM 3.7 MMOL/L (3.5-5.1); SODIUM LEVEL 134 MMOL/L (136-145)
[2022-12-04 08:00] VITALS: BP 104/65
[2022-12-04] MEDS ORDERED: GLYCOPYRROLATE INJ 0.2 MG/ML 2 ML VIAL IV PRN (08:55)
[2022-12-04] MEDS ORDERED: oxyCODONE 5MG TAB PO PRN (09:35)
[2022-12-04] MEDS: ENOXAPARIN 60MG/0.6ML SYRINGE (J1650 PER 10MG) SC SCH (09:46)
[2022-12-04] MEDS: levETIRAcetam INJection 1,000 MG in D5W 100 ML IV SCH ×2 (09:46→21:24)
[2022-12-04] MEDS: PROCHLORPERAZINE 10MG 2ML VIAL IV PRN ×2 (09:46→22:23)
[2022-12-04] MEDS: PANTOPRAZOLE 40MG VIAL IV SCH ×2 (09:46→20:27)
[2022-12-04] MEDS: diphenhydrAMINE 50MG/ML VIAL IV SCH ×2 (09:46→20:27)
[2022-12-04] MEDS ORDERED: HYDROmorphone 2 MG TAB PO ONE (10:15)
[2022-12-04] MEDS ORDERED: HYDROmorphone 2 MG TAB PO PRN (10:25)
[2022-12-04 11:00] VITALS: BP 98/61
[2022-12-04] MEDS: LORazepam 2 MG/ML 1ML VIAL IV PRN ×2 (11:41→20:28)
[2022-12-04] MEDS: SODIUM CHLORIDE 0.9% INJ 10 ML SYR IV SCH ×2 (13:09→18:27)
[2022-12-04] MEDS: HYDROmorphone HCL 2MG/ML 1ML VIAL IV PRN ×3 (13:09→22:25)
[2022-12-04 14:00] VITALS: BP 93/58
[2022-12-04] MEDS ORDERED: LIDOCAINE 1% MDV 20ML VIAL As Ordered ONE (15:36)
[2022-12-04] MEDS ORDERED: ISOVUE-370 76% 100ML VIAL As Ordered ONE (16:33)
[2022-12-04 17:42] VITALS: O2SAT 96
[2022-12-04] MEDS: SODIUM CHLORIDE 0.9% INJ 10 ML SYR IV PRN (18:30)
[2022-12-04 20:00] VITALS: BP 94/54
[2022-12-04] MEDS: APTIOM 800 MG JT SCH (20:28)
[2022-12-04] MEDS: oxyCODONE 5MG TAB JT PRN (20:29)
[2022-12-04] MEDS: ACETAMINOPHEN 325MG/10.15ML UDC JT PRN (22:24)
[2022-12-05] MEDS: SODIUM CHLORIDE 0.9% INJ 10 ML SYR IV PRN (00:21)
[2022-12-05] MEDS: METOCLOPRAMIDE INJ 10MG/2ML VIAL IV SCH ×4 (00:21→18:14)
[2022-12-05] MEDS: HYDROmorphone HCL 2MG/ML 1ML VIAL IV PRN ×6 (02:44→21:24)
[2022-12-05] MEDS: POTASSIUM CHLORIDE INJ 40 MEQ in NS 0.45% 1,000 ML IV SCH ×3 (02:45→23:27)
[2022-12-05 06:00] VITALS: BP 102/55
[2022-12-05] MEDS: GLYCOPYRROLATE INJ 0.2 MG/ML 2 ML VIAL IV PRN ×2 (06:25→16:21)
[2022-12-05] MEDS: PIPERACILLIN/TAZOBACTAM SOD 3.375 GM in D5W MINI-BAG PLUS 50 ML IV SCH ×3 (06:25→18:15)
[2022-12-05] MEDS: SODIUM CHLORIDE 0.9% INJ 10 ML SYR IV SCH ×3 (06:39→18:16)
[2022-12-05] MEDS: LORazepam 2 MG/ML 1ML VIAL IV PRN ×2 (06:40→16:21)
[2022-12-05] MEDS ORDERED: OXYC100C5 JT (07:12)
[2022-12-05] MEDS ORDERED: ATIV1TAB10 GT (07:12)
[2022-12-05 07:18] LABS: BASO % 0.6 % (0.0-1.0); EOS # 0.3 10^3/uL (0.0-0.5); HEMATOCRIT 36.3 % (36.0-47.0); LYMPH # 0.8 10^3/uL (1.5-5.0); LYMPH % 16.3 % (24.0-44.0); MEAN CORPUSCULAR HEMOGLOBIN 29.2 pg (27.0-33.0); MEAN CORPUSCULAR HGB CONC 33.1 g/dl (32.0-36.5); MEAN CORPUSCULAR VOLUME 88.3 fl (80.0-96.0); MONO # 0.7 10^3/uL (0.0-0.8); NEUTROPHILS % 61.1 % (36.0-66.0); PLATELET COUNT, AUTOMATED 238 10^3/uL (150-450); RED BLOOD COUNT 4.11 10^6/uL (4.00-5.40); WHITE BLOOD COUNT 4.8 10^3/uL (4.0-10.0)
[2022-12-05 07:55] LABS: BLOOD UREA NITROGEN 12 MG/DL (9-23); CALCIUM LEVEL 8.8 MG/DL (8.5-10.1); CARBON DIOXIDE LEVEL 23 MMOL/L (20-31); CHLORIDE LEVEL 110 MMOL/L (98-107); CREATININE FOR GFR 0.75 MG/DL (0.55-1.30); GLOMERULAR FILTRATION RATE > 60.0 (>58); GLUCOSE, FASTING 100 MG/DL (60-100); POTASSIUM SERUM 4.3 MMOL/L (3.5-5.1); SODIUM LEVEL 138 MMOL/L (136-145)
[2022-12-05] MEDS: PANTOPRAZOLE 40MG VIAL IV SCH ×2 (10:27→20:11)
[2022-12-05] MEDS: diphenhydrAMINE 50MG/ML VIAL IV SCH ×2 (10:27→20:11)
[2022-12-05] MEDS: ENOXAPARIN 60MG/0.6ML SYRINGE (J1650 PER 10MG) SC SCH (10:28)
[2022-12-05] MEDS: levETIRAcetam INJection 1,000 MG in D5W 100 ML IV SCH ×2 (10:29→21:23)
[2022-12-05] MEDS: ACETAMINOPHEN 325MG/10.15ML UDC JT PRN ×2 (11:23→18:26)
[2022-12-05 14:00] VITALS: BP 99/57
[2022-12-05] MEDS: oxyCODONE 5MG TAB JT PRN (16:22)
[2022-12-05] MEDS: TPN IV SCH (18:34)
[2022-12-05] MEDS: APTIOM 800 MG JT SCH (20:12)
[2022-12-05 22:00] VITALS: BP 94/55
[2022-12-05 23:41] VITALS: O2SAT 95
[2022-12-06 00:05] VITALS: BP 90/54
[2022-12-06] MEDS: oxyCODONE 5MG TAB JT PRN ×3 (00:18→19:28)
[2022-12-06] MEDS: SODIUM CHLORIDE 0.9% INJ 10 ML SYR IV PRN ×2 (00:19→09:25)
[2022-12-06] MEDS: METOCLOPRAMIDE INJ 10MG/2ML VIAL IV SCH ×5 (00:19→23:55)
[2022-12-06] MEDS: PIPERACILLIN/TAZOBACTAM SOD 3.375 GM in D5W MINI-BAG PLUS 50 ML IV SCH ×5 (00:19→23:55)
[2022-12-06] MEDS: LORazepam 2 MG/ML 1ML VIAL IV PRN (00:20)
[2022-12-06 02:12] VITALS: BP 89/53
[2022-12-06] MEDS: HYDROmorphone HCL 2MG/ML 1ML VIAL IV PRN ×3 (02:24→12:36)
[2022-12-06] MEDS ORDERED: MIDODRINE 5 MG TAB JT ONE (05:00)
[2022-12-06] MEDS: SODIUM CHLORIDE 0.9% INJ 10 ML SYR IV SCH ×3 (05:11→17:10)
[2022-12-06 06:00] VITALS: BP 86/53
[2022-12-06] MEDS: POTASSIUM CHLORIDE INJ 40 MEQ in NS 0.45% 1,000 ML IV SCH ×3 (06:18→23:54)
[2022-12-06 06:40] LABS: BASO % 0.7 % (0.0-1.0); EOS # 0.3 10^3/uL (0.0-0.5); HEMATOCRIT 34.4 % (36.0-47.0); HEMOGLOBIN 11.1 g/dl (12.0-15.5); LYMPH # 0.9 10^3/uL (1.5-5.0); LYMPH % 20.6 % (24.0-44.0); MEAN CORPUSCULAR HEMOGLOBIN 28.8 pg (27.0-33.0); MEAN CORPUSCULAR HGB CONC 32.3 g/dl (32.0-36.5); MEAN CORPUSCULAR VOLUME 89.4 fl (80.0-96.0); MONO # 0.7 10^3/uL (0.0-0.8); MONO % 14.9 % (2.0-8.0); NEUTROPHILS # 2.5 10^3/uL (1.5-8.5); NEUTROPHILS % 57.1 % (36.0-66.0); PLATELET COUNT, AUTOMATED 241 10^3/uL (150-450); RED BLOOD COUNT 3.85 10^6/uL (4.00-5.40); WHITE BLOOD COUNT 4.4 10^3/uL (4.0-10.0)
[2022-12-06 07:11] LABS: BLOOD UREA NITROGEN 19 MG/DL (9-23); CALCIUM LEVEL 8.6 MG/DL (8.5-10.1); CARBON DIOXIDE LEVEL 26 MMOL/L (20-31); CHLORIDE LEVEL 104 MMOL/L (98-107); CREATININE FOR GFR 0.69 MG/DL (0.55-1.30); GLOMERULAR FILTRATION RATE > 60.0 (>58); GLUCOSE, FASTING 114 MG/DL (60-100); POTASSIUM SERUM 4.6 MMOL/L (3.5-5.1); SODIUM LEVEL 137 MMOL/L (136-145)
[2022-12-06] MEDS: PANTOPRAZOLE 40MG VIAL IV SCH ×2 (09:20→21:01)
[2022-12-06] MEDS: ENOXAPARIN 60MG/0.6ML SYRINGE (J1650 PER 10MG) SC SCH (09:20)
[2022-12-06] MEDS: PROCHLORPERAZINE 10MG 2ML VIAL IV PRN (09:20)
[2022-12-06] MEDS: diphenhydrAMINE 50MG/ML VIAL IV SCH ×2 (09:27→21:02)
[2022-12-06] MEDS: levETIRAcetam INJection 1,000 MG in D5W 100 ML IV SCH ×2 (10:03→21:02)
[2022-12-06 14:00] VITALS: BP 110/70
[2022-12-06] MEDS: LORazepam 1 MG TAB PEG PRN (15:10)
[2022-12-06] MEDS ORDERED: OXYC30TA PO ×2 (15:55→16:04)
[2022-12-06] MEDS ORDERED: HYOSCYAMINE SULFATE 0.125 MG SUBL TABLET JT PRN (16:25)
[2022-12-06] MEDS ORDERED: GLYC1TAB18 PO (16:37)
[2022-12-06] MEDS ORDERED: MIDODRINE 5 MG TAB PO ONE (20:00)
[2022-12-06 20:40] VITALS: BP 98/61
[2022-12-06] MEDS: APTIOM 800 MG JT SCH (21:01)
[2022-12-07] MEDS: oxyCODONE 5MG TAB JT PRN ×6 (00:13→21:12)
[2022-12-07] MEDS: zolPIDEM TARTRATE 5 MG TAB JT PRN ×2 (00:50→21:11)
[2022-12-07 01:30] VITALS: BP 98/60
[2022-12-07 05:10] VITALS: BP 93/55
[2022-12-07] MEDS: PIPERACILLIN/TAZOBACTAM SOD 3.375 GM in D5W MINI-BAG PLUS 50 ML IV SCH ×3 (05:35→16:56)
[2022-12-07] MEDS: METOCLOPRAMIDE INJ 10MG/2ML VIAL IV SCH ×3 (05:35→16:57)
[2022-12-07] MEDS: SODIUM CHLORIDE 0.9% INJ 10 ML SYR IV SCH ×3 (05:37→16:57)
[2022-12-07 06:18] LABS: BASO % 0.5 % (0.0-1.0); EOS # 0.2 10^3/uL (0.0-0.5); EOS % 5.6 % (0.0-3.0); HEMATOCRIT 34.6 % (36.0-47.0); LYMPH % 23.3 % (24.0-44.0); MEAN CORPUSCULAR HEMOGLOBIN 28.6 pg (27.0-33.0); MEAN CORPUSCULAR HGB CONC 31.8 g/dl (32.0-36.5); MEAN CORPUSCULAR VOLUME 89.9 fl (80.0-96.0); MONO # 0.6 10^3/uL (0.0-0.8); MONO % 15.1 % (2.0-8.0); NEUTROPHILS # 2.3 10^3/uL (1.5-8.5); PLATELET COUNT, AUTOMATED 246 10^3/uL (150-450); RED BLOOD COUNT 3.85 10^6/uL (4.00-5.40); WHITE BLOOD COUNT 4.3 10^3/uL (4.0-10.0)
[2022-12-07 06:43] LABS: BLOOD UREA NITROGEN 7 MG/DL (9-23); CALCIUM LEVEL 8.8 MG/DL (8.5-10.1); CARBON DIOXIDE LEVEL 25 MMOL/L (20-31); CHLORIDE LEVEL 105 MMOL/L (98-107); CREATININE FOR GFR 0.72 MG/DL (0.55-1.30); GLOMERULAR FILTRATION RATE > 60.0 (>58); GLUCOSE, FASTING 87 MG/DL (60-100); POTASSIUM SERUM 4.2 MMOL/L (3.5-5.1); SODIUM LEVEL 137 MMOL/L (136-145)
[2022-12-07] MEDS: ENOXAPARIN 60MG/0.6ML SYRINGE (J1650 PER 10MG) SC SCH (09:15)
[2022-12-07] MEDS: diphenhydrAMINE 50MG/ML VIAL IV SCH ×2 (09:16→21:10)
[2022-12-07] MEDS: PANTOPRAZOLE 40MG VIAL IV SCH ×2 (09:16→21:10)
[2022-12-07] MEDS: MIDODRINE 5 MG TAB JT SCH ×3 (09:16→16:56)
[2022-12-07] MEDS: levETIRAcetam INJection 1,000 MG in D5W 100 ML IV SCH ×2 (09:17→21:10)
[2022-12-07] MEDS ORDERED: MIDO5TA JT (09:26)
[2022-12-07] MEDS: SODIUM CHLORIDE 0.9% INJ 10 ML SYR IV PRN (10:21)
[2022-12-07] MEDS: LORazepam 1 MG TAB PEG PRN ×2 (12:38→21:11)
[2022-12-07 15:00] VITALS: BP 98/56
[2022-12-07] MEDS: POTASSIUM CHLORIDE INJ 40 MEQ in NS 0.45% 1,000 ML IV SCH ×2 (15:40→20:43)
[2022-12-07] MEDS: TPN IV SCH (18:50)
[2022-12-07 21:00] VITALS: BP 97/48
[2022-12-07] MEDS: APTIOM 800 MG JT SCH (21:10)
[2022-12-08] MEDS: METOCLOPRAMIDE INJ 10MG/2ML VIAL IV SCH ×2 (00:15→06:02)
[2022-12-08] MEDS: SODIUM CHLORIDE 0.9% INJ 10 ML SYR IV PRN (00:16)
[2022-12-08] MEDS: PIPERACILLIN/TAZOBACTAM SOD 3.375 GM in D5W MINI-BAG PLUS 50 ML IV SCH ×2 (00:17→06:03)
[2022-12-08 06:00] VITALS: BP 106/76
[2022-12-08] MEDS: SODIUM CHLORIDE 0.9% INJ 10 ML SYR IV SCH ×2 (06:02→08:03)
[2022-12-08] MEDS: POTASSIUM CHLORIDE INJ 40 MEQ in NS 0.45% 1,000 ML IV SCH (07:00)
[2022-12-08 07:45] VITALS: BP 104/60
[2022-12-08] MEDS: oxyCODONE 5MG TAB JT PRN (07:45)
[2022-12-08] MEDS: diphenhydrAMINE 50MG/ML VIAL IV SCH (08:00)
[2022-12-08] MEDS: PANTOPRAZOLE 40MG VIAL IV SCH (08:00)
[2022-12-08] MEDS: ENOXAPARIN 60MG/0.6ML SYRINGE (J1650 PER 10MG) SC SCH (08:00)
[2022-12-08] MEDS: MIDODRINE 5 MG TAB JT SCH (08:01)
[2022-12-08] MEDS: levETIRAcetam INJection 1,000 MG in D5W 100 ML IV SCH (09:27)
[2022-12-09] MEDS ORDERED: POTASSIUM CHLORIDE INJ 40 MEQ in NS 0.45% 1,000 ML IV SCH (06:00)
== END 2022-12-08 11:43 | disposition home or self-care (01) | DRG 254 ==
LOC: M ED 06:02 → M ED INP 11:57 → ENRESERV 12:52 → M MSPAV 13:52
PROVIDERS: ADMIT Internal Medicine Nephrology; ATTEND Internal Medicine
PROC: 02HV33Z Insertion of Infusion Device into Superior Vena Cava, Percutaneous Approach (ICD-10-PCS; principal; 2022-12-04 16:00)
PROC: B246ZZZ Ultrasonography of Right and Left Heart (ICD-10-PCS; 2022-12-06)
DX: K31.84 Gastroparesis (principal); E87.0 Hyperosmolality and hypernatremia; D68.59 Other primary thrombophilia; K91.2 Postsurgical malabsorption, not elsewhere classified; F11.20 Opioid dependence, uncomplicated; G40.209 Localization-related (focal) (partial) symptomatic epilepsy and epileptic syndromes with complex partial seizures, not intractable, without status epilepticus; Z93.4 Other artificial openings of gastrointestinal tract status; M96.1 Postlaminectomy syndrome, not elsewhere classified; J45.909 Unspecified asthma, uncomplicated; D50.9 Iron deficiency anemia, unspecified; E78.2 Mixed hyperlipidemia; A09 Infectious gastroenteritis and colitis, unspecified; F41.9 Anxiety disorder, unspecified; F32.A Depression, unspecified; K90.0 Celiac disease; E55.9 Vitamin D deficiency, unspecified; K21.9 Gastro-esophageal reflux disease without esophagitis; R50.9 Fever, unspecified; E87.6 Hypokalemia; Z86.718 Personal history of other venous thrombosis and embolism; Z79.899 Other long term (current) drug therapy; Z88.2 Allergy status to sulfonamides; Z88.6 Allergy status to analgesic agent; Z88.8 Allergy status to other drugs, medicaments and biological substances; Z91.018 Allergy to other foods; Z88.1 Allergy status to other antibiotic agents

== ENCOUNTER → 2022-12-12 | Outpatient (CLI) | payer BC, OTHER ==
[~2022-12-12] VITALS: Ht 170.2 cm; Wt 87.2 kg
[~2022-12-12] MED LIST changes: +GLYC1TAB18 PO; +OXYC30TA PO
[2022-12-12 08:05] VITALS: BP 93/60
== END ==
LOC: M PAL 07:58
PROVIDERS: ATTEND Nurse Practitioner Adult Health
DX: G40.909 Epilepsy, unspecified, not intractable, without status epilepticus (principal); D50.9 Iron deficiency anemia, unspecified; K31.84 Gastroparesis; R10.9 Unspecified abdominal pain; K91.2 Postsurgical malabsorption, not elsewhere classified; Z51.5 Encounter for palliative care; K21.9 Gastro-esophageal reflux disease without esophagitis; F32.A Depression, unspecified; Z93.1 Gastrostomy status; Z87.19 Personal history of other diseases of the digestive system; D68.59 Other primary thrombophilia; Z86.16 Personal history of COVID-19; Z90.49 Acquired absence of other specified parts of digestive tract; Z86.718 Personal history of other venous thrombosis and embolism; Z98.84 Bariatric surgery status; Z93.4 Other artificial openings of gastrointestinal tract status; Z87.891 Personal history of nicotine dependence; Z79.899 Other long term (current) drug therapy; Z91.018 Allergy to other foods; Z88.1 Allergy status to other antibiotic agents; Z88.2 Allergy status to sulfonamides; Z88.5 Allergy status to narcotic agent; Z88.6 Allergy status to analgesic agent; R11.2 Nausea with vomiting, unspecified

== ENCOUNTER → 2023-01-11 | Outpatient (REF) | payer BC, OTHER ==
[~2023-01-11] MED LIST changes: +ATIV1TAB10 FT
[2023-01-11 15:04] LABS: HEMATOCRIT 28.7 % (36.0-47.0); HEMOGLOBIN 9.2 g/dl (12.0-15.5); MEAN CORPUSCULAR HEMOGLOBIN 29.8 pg (27.0-33.0); MEAN CORPUSCULAR HGB CONC 32.1 g/dl (32.0-36.5); MEAN CORPUSCULAR VOLUME 92.9 fl (80.0-96.0); PLATELET COUNT, AUTOMATED 268 10^3/uL (150-450); RED BLOOD COUNT 3.09 10^6/uL (4.00-5.40); WHITE BLOOD COUNT 4.1 10^3/uL (4.0-10.0)
[2023-01-11 16:10] LABS: ALBUMIN 2.5 G/DL (3.2-5.2); ALKALINE PHOSPHATASE 73 U/L (46-116); ALT/SGPT 15 U/L (7.0-40); AST/SGOT 16 U/L (<34); BILIRUBIN,TOTAL 0.3 MG/DL (0.3-1.2); BLOOD UREA NITROGEN 7 MG/DL (9-23); CALCIUM LEVEL 5.8 MG/DL (8.5-10.1); CARBON DIOXIDE LEVEL 22 MMOL/L (20-31); CHLORIDE LEVEL 115 MMOL/L (98-107); CHOLESTEROL LEVEL 123 MG/DL (<200); CHOLESTEROL RISK RATIO 4.24 (<5); CREATININE FOR GFR 0.48 MG/DL (0.55-1.30); GLOMERULAR FILTRATION RATE > 60.0 (>58); GLUCOSE, FASTING 90 MG/DL (60-100); LDL CHOLESTEROL 71.8 MG/DL (<100); MAGNESIUM LEVEL 1.3 MG/DL (1.8-2.4); PHOSPHORUS LEVEL 2.8 MG/DL (2.5-4.9); SODIUM LEVEL 144 MMOL/L (136-145); TOTAL PROTEIN 4.2 G/DL (5.7-8.2); TRIGLYCERIDES LEVEL 111 MG/DL (<150)
== END ==
LOC: M LAB REF 14:37
PROVIDERS: ATTEND Internal Medicine Gastroenterology
DX: K31.84 Gastroparesis (principal); K21.00 Gastro-esophageal reflux disease with esophagitis, without bleeding; Z98.84 Bariatric surgery status

== ENCOUNTER 2023-01-12 12:09 | Emergency (ER) | payer BC, OTHER ==
[~2023-01-12] VITALS: Ht 170.2 cm; Wt 86.1 kg
[2023-01-12] MEDS ORDERED: NS 500 ML IV ONE (12:45)
[2023-01-12 13:48] LABS: BASO # 0.1 10^3/uL (0.0-0.2); BASO % 0.9 % (0.0-1.0); EOS # 0.2 10^3/uL (0.0-0.5); HEMATOCRIT 37.9 % (36.0-47.0); LYMPH % 18.9 % (24.0-44.0); MEAN CORPUSCULAR HEMOGLOBIN 29.9 pg (27.0-33.0); MEAN CORPUSCULAR HGB CONC 33.2 g/dl (32.0-36.5); MEAN CORPUSCULAR VOLUME 89.8 fl (80.0-96.0); MONO # 0.4 10^3/uL (0.0-0.8); MONO % 8.1 % (2.0-8.0); NEUTROPHILS # 3.6 10^3/uL (1.5-8.5); NEUTROPHILS % 67.7 % (36.0-66.0); PLATELET COUNT, AUTOMATED 352 10^3/uL (150-450); RED BLOOD COUNT 4.22 10^6/uL (4.00-5.40); WHITE BLOOD COUNT 5.3 10^3/uL (4.0-10.0)
[2023-01-12 13:51] LABS: HEMOGLOBIN 12.6 g/dl (12.0-15.5)
[2023-01-12 13:59] LABS: LIPASE 32 U/L (12-53)
[2023-01-12 14:03] LABS: FREE T4 0.88 NG/DL (0.89-1.76); THYROID STIMULATING HORMONE 1.641 uIU/ML (0.55-4.78)
[2023-01-12 14:05] LABS: ALBUMIN 4.2 G/DL (3.2-5.2); ALKALINE PHOSPHATASE 115 U/L (46-116); ALT/SGPT 22 U/L (7.0-40); AST/SGOT 23 U/L (<34); BILIRUBIN,DIRECT 0.2 MG/DL (<0.4); BILIRUBIN,TOTAL 0.4 MG/DL (0.3-1.2); BLOOD UREA NITROGEN 9 MG/DL (9-23); CALCIUM LEVEL 9.4 MG/DL (8.5-10.1); CARBON DIOXIDE LEVEL 27 MMOL/L (20-31); CHLORIDE LEVEL 104 MMOL/L (98-107); CREATININE FOR GFR 0.59 MG/DL (0.55-1.30); GLOMERULAR FILTRATION RATE > 60.0 (>58); GLUCOSE, FASTING 106 MG/DL (60-100); POTASSIUM SERUM 4.3 MMOL/L (3.5-5.1); SODIUM LEVEL 139 MMOL/L (136-145); TOTAL PROTEIN 6.8 G/DL (5.7-8.2)
[2023-01-12] MEDS ORDERED: ISOVUE-370 76% 100ML VIAL As Ordered ONE (14:29)
[2023-01-12] MEDS ORDERED: MORPHINE 4 MG/ML 1ML VIAL IV ONE (14:55)
[2023-01-12] MEDS ORDERED: ONDANSETRON 4MG 2ML VIAL IV ONE (14:55)
[2023-01-12 16:15] VITALS: BP 109/70
== END 2023-01-12 16:20 | disposition home or self-care (01) ==
LOC: M ED 12:09
DX: E83.51 Hypocalcemia (principal); R10.9 Unspecified abdominal pain; R56.9 Unspecified convulsions; K90.9 Intestinal malabsorption, unspecified; F32.A Depression, unspecified; F41.9 Anxiety disorder, unspecified; D50.9 Iron deficiency anemia, unspecified; Z86.718 Personal history of other venous thrombosis and embolism; M54.9 Dorsalgia, unspecified; Z88.6 Allergy status to analgesic agent; Z88.8 Allergy status to other drugs, medicaments and biological substances; Z88.2 Allergy status to sulfonamides; Z79.899 Other long term (current) drug therapy
CPT/HCPCS: 71046; 74177; 80047; 80048; 80076; 83690; 84439; 84443; 84484; 85025; 93005; 93041; 94760; 96374; 96375; 99285; J2270; J2405; Q9967

== ENCOUNTER 2023-02-02 15:52 | Observation (INO) | payer BC, OTHER ==
[~2023-02-02] VITALS: Ht 170.2 cm; Wt 86.5 kg
[2023-02-02] MEDS ORDERED: VITA500030 (16:10)
[2023-02-02 17:07] LABS: BASO % 0.5 % (0.0-1.0); EOS # 0.2 10^3/uL (0.0-0.5); EOS % 2.4 % (0.0-3.0); HEMATOCRIT 39.6 % (36.0-47.0); HEMOGLOBIN 12.8 g/dl (12.0-15.5); LYMPH # 1.4 10^3/uL (1.5-5.0); LYMPH % 22.1 % (24.0-44.0); MEAN CORPUSCULAR HEMOGLOBIN 29.3 pg (27.0-33.0); MEAN CORPUSCULAR HGB CONC 32.3 g/dl (32.0-36.5); MEAN CORPUSCULAR VOLUME 90.6 fl (80.0-96.0); MONO # 0.4 10^3/uL (0.0-0.8); MONO % 6.9 % (2.0-8.0); NEUTROPHILS # 4.2 10^3/uL (1.5-8.5); NEUTROPHILS % 67.8 % (36.0-66.0); PLATELET COUNT, AUTOMATED 315 10^3/uL (150-450); RED BLOOD COUNT 4.37 10^6/uL (4.00-5.40); WHITE BLOOD COUNT 6.2 10^3/uL (4.0-10.0)
[2023-02-02 17:22] LABS: BLOOD UREA NITROGEN 10 MG/DL (9-23); CALCIUM LEVEL 9.5 MG/DL (8.5-10.1); CARBON DIOXIDE LEVEL 29 MMOL/L (20-31); CHLORIDE LEVEL 105 MMOL/L (98-107); CREATININE FOR GFR 0.66 MG/DL (0.55-1.30); GLOMERULAR FILTRATION RATE > 60.0 (>58); GLUCOSE, FASTING 107 MG/DL (60-100); POTASSIUM SERUM 4.1 MMOL/L (3.5-5.1); SODIUM LEVEL 141 MMOL/L (136-145)
[2023-02-02 17:25] LABS: RSV AMPLIFICATION NEGATIVE (NEGATIVE)
[2023-02-02] MEDS ORDERED: LINEZOLID 600MG TABLET (ZYVOX) PEG ONE (17:25)
[2023-02-02] MEDS ORDERED: cefTRIAXone SOD 1 GM in D5W MINI-BAG PLUS 50 ML IV ONE (17:25)
[2023-02-02] MEDS ORDERED: ACET-907 PO (17:30)
[2023-02-02] MEDS ORDERED: ONDANSETRON 4MG 2ML VIAL IV ONE (17:35)
[2023-02-02] MEDS ORDERED: ACETAMINOPHEN 325MG/10.15ML UDC PEG ONE (17:35)
[2023-02-02] MEDS ORDERED: ACETAMINOPHEN TAB 650MG DOSE (2X325MG) PO PRN (18:25)
[2023-02-02] MEDS ORDERED: VANCOMYCIN HCL 1,000 MG, VIAL MATE ADAPTER 1 EACH in D5W 250 ML IV ONE (19:00)
[2023-02-02] MEDS ORDERED: MIDO5TA PO (19:04)
[2023-02-02] MEDS ORDERED: HOME MED LIST COMPLETE! XX SCH (19:10)
[2023-02-02] MEDS ORDERED: VANCOMYCIN HCL 750 MG, VIAL MATE ADAPTER 1 EACH in D5W 250 ML IV ONE (20:00)
[2023-02-02] MEDS ORDERED: oxyCODONE 5MG TAB PO ONE (20:05)
[2023-02-02] MEDS ORDERED: OXYC30TA JT (20:07)
[2023-02-02 20:30] VITALS: BP 113/69
[2023-02-02] MEDS ORDERED: LORazepam 0.5 MG TAB GT PRN (20:55)
[2023-02-02] MEDS ORDERED: ONDANSETRON 4MG 2ML VIAL IV PRN (20:55)
[2023-02-02] MEDS ORDERED: ALBUTEROL 90 MCG/ACT 8GM HFA INHALER INH PRN (20:55)
[2023-02-02] MEDS ORDERED: zolPIDEM TARTRATE 5 MG TAB JT SCH (21:00)
[2023-02-02] MEDS ORDERED: LEVETIRACETAM 500 MG/5 ML IV SCH (21:00)
[2023-02-02] MEDS: PANTOPRAZOLE 40MG VIAL IV SCH (21:34)
[2023-02-02] MEDS: diphenhydrAMINE 50MG/ML VIAL IV SCH (21:35)
[2023-02-02] MEDS: levETIRAcetam INJection 1,000 MG in D5W 100 ML IV SCH (22:35)
[2023-02-03] MEDS: VANCOMYCIN HCL 750 MG, VIAL MATE ADAPTER 1 EACH in NS 250 ML IV SCH ×2 (03:52→12:56)
[2023-02-03 05:56] VITALS: BP 83/52
[2023-02-03] MEDS: MIDODRINE 5 MG TAB PO SCH ×3 (06:13→15:28)
[2023-02-03] MEDS: oxyCODONE 5MG TAB JT PRN ×3 (06:15→15:29)
[2023-02-03 06:33] LABS: HEMATOCRIT 35.4 % (36.0-47.0); HEMOGLOBIN 11.4 g/dl (12.0-15.5); MEAN CORPUSCULAR HEMOGLOBIN 29.2 pg (27.0-33.0); MEAN CORPUSCULAR HGB CONC 32.2 g/dl (32.0-36.5); MEAN CORPUSCULAR VOLUME 90.8 fl (80.0-96.0); PLATELET COUNT, AUTOMATED 258 10^3/uL (150-450); WHITE BLOOD COUNT 5.4 10^3/uL (4.0-10.0)
[2023-02-03 06:49] VITALS: BP 104/64
[2023-02-03 06:57] LABS: ALBUMIN 3.6 G/DL (3.2-5.2); ALKALINE PHOSPHATASE 102 U/L (46-116); ALT/SGPT 16 U/L (7.0-40); AST/SGOT 16 U/L (<34); BILIRUBIN,TOTAL 0.3 MG/DL (0.3-1.2); BLOOD UREA NITROGEN 7 MG/DL (9-23); CARBON DIOXIDE LEVEL 28 MMOL/L (20-31); CHLORIDE LEVEL 107 MMOL/L (98-107); GLOMERULAR FILTRATION RATE > 60.0 (>58); GLUCOSE, FASTING 103 MG/DL (60-100); POTASSIUM SERUM 3.8 MMOL/L (3.5-5.1); SODIUM LEVEL 140 MMOL/L (136-145); TOTAL PROTEIN 6.2 G/DL (5.7-8.2)
[2023-02-03] MEDS ORDERED: FLUoxetine 20MG CAP JT SCH (09:00)
[2023-02-03] MEDS ORDERED: ENOXAPARIN 60MG/0.6ML SYRINGE (J1650 PER 10MG) SC SCH (09:00)
[2023-02-03] MEDS ORDERED: ROSUVASTATIN 10 MG TAB (CRESTOR) GT SCH (09:00)
[2023-02-03] MEDS: diphenhydrAMINE 50MG/ML VIAL IV SCH (09:43)
[2023-02-03] MEDS: levETIRAcetam INJection 1,000 MG in D5W 100 ML IV SCH (09:44)
[2023-02-03] MEDS: PANTOPRAZOLE 40MG VIAL IV SCH (09:44)
[2023-02-03 13:00] VITALS: BP 100/63
[2023-02-03 14:00] VITALS: BP 95/48
[2023-02-05] MEDS ORDERED: OXYC30TA PO (16:19)
== END 2023-02-03 17:59 | disposition home or self-care (01) ==
LOC: M ED 15:52 → M ED INP 18:25 → M MSPAV 20:29
PROVIDERS: ADMIT Family Medicine; ATTEND Family Medicine
DX: T82.848A Pain due to vascular prosthetic devices, implants and grafts, initial encounter (principal); Y74.2 Prosthetic and other implants, materials and accessory general hospital and personal-use devices associated with adverse incidents; A49.02 Methicillin resistant Staphylococcus aureus infection, unspecified site; R50.9 Fever, unspecified; Z98.84 Bariatric surgery status; K31.84 Gastroparesis; G89.4 Chronic pain syndrome; F11.20 Opioid dependence, uncomplicated; R56.9 Unspecified convulsions; Z86.718 Personal history of other venous thrombosis and embolism; D68.59 Other primary thrombophilia; Z79.899 Other long term (current) drug therapy; Z79.01 Long term (current) use of anticoagulants; Z88.2 Allergy status to sulfonamides; Z88.1 Allergy status to other antibiotic agents; Z88.5 Allergy status to narcotic agent; Z88.8 Allergy status to other drugs, medicaments and biological substances; Z91.018 Allergy to other foods
CPT/HCPCS: 36415; 71045; 80048; 80053; 83605; 83735; 85025; 85027; 87040; 87070; 87077; 87186; 87631; 93041; 94760; 96365; 96366; 96367; 96368; 96372; 96375; 96376; 99285; C9113; J0696; J1200; J1650; J1953; J2405

== ENCOUNTER 2023-02-03 18:02 | Outpatient (CLI) | payer BC, OTHER ==
[~2023-02-03] VITALS: Ht 170.2 cm; Wt 86.5 kg
[~2023-02-03 18:02] MED LIST changes: +ACET-907 PO; +DALBAVANCIN 1,500 MG in D5W 250 ML IV ONE; +MIDO5TA PO; +OXYC30TA JT; +VITA500030
[2023-02-05] MEDS ORDERED: OXYC30TA PO (16:19)
[2023-02-16] MEDS ORDERED: ATIV1TAB10 GT (07:19)
[2023-02-16] MEDS ORDERED: OXYC30TA PO (07:19)
[2023-02-16] MEDS ORDERED: DICL1GEL3 TOP (07:19)
== END 2023-02-03 18:45 | disposition home or self-care (01) ==
LOC: M OPCLI4PV 18:02 → M MSPAV 18:04 → M OPCLI4PV 18:45
PROVIDERS: ATTEND Family Medicine
DX: T80.212A Local infection due to central venous catheter, initial encounter (principal); Z88.6 Allergy status to analgesic agent; Z88.2 Allergy status to sulfonamides; Z88.8 Allergy status to other drugs, medicaments and biological substances; Z88.5 Allergy status to narcotic agent
CPT/HCPCS: 96365; J0875

== ENCOUNTER → 2023-02-13 | Outpatient (CLI) | payer BC, OTHER ==
[~2023-02-13] MED LIST changes: -DALBAVANCIN 1,500 MG in D5W 250 ML IV ONE
[2023-02-13 11:56] LABS: CHOLESTEROL RISK RATIO 4.47 (<5); HDL CHOLESTEROL 57.2 MG/DL (>40); LDL CHOLESTEROL 157.6 MG/DL (<100); NON-HDL-C 198.8 MG/DL
== END ==
LOC: M LAB 10:37
PROVIDERS: ATTEND Student in an Organized Health Care Education/Training Program
DX: K31.84 Gastroparesis (principal); D64.9 Anemia, unspecified; Z98.84 Bariatric surgery status; R21 Rash and other nonspecific skin eruption

== ENCOUNTER → 2023-03-09 | Outpatient (REF) | payer BC, OTHER ==
[~2023-03-09] MED LIST changes: -HEPA100I11 IV; +HEPAINJ5 IV; +LORA1TAB23 PO; -LORA1TAB4 PO; +[UNRECOGNIZED DRUG - CODE] IV; -[UNRECOGNIZED DRUG - CODE] IV
[2023-03-09 07:25] LABS: HEMATOCRIT 37.2 % (36.0-47.0); MEAN CORPUSCULAR HEMOGLOBIN 28.7 pg (27.0-33.0); MEAN CORPUSCULAR HGB CONC 32.3 g/dl (32.0-36.5); PLATELET COUNT, AUTOMATED 383 10^3/uL (150-450); RED BLOOD COUNT 4.18 10^6/uL (4.00-5.40)
[2023-03-09 07:51] LABS: BILIRUBIN,DIRECT 0.2 MG/DL (<0.4); BILIRUBIN,TOTAL 0.6 MG/DL (0.3-1.2); CALCIUM LEVEL 9.3 MG/DL (8.5-10.1); MAGNESIUM LEVEL 2.2 MG/DL (1.8-2.4); PHOSPHORUS LEVEL 4.6 MG/DL (2.5-4.9); TOTAL PROTEIN 6.5 G/DL (5.7-8.2)
== END ==
LOC: M LAB REF 07:16
PROVIDERS: ATTEND Internal Medicine Gastroenterology
DX: Z98.84 Bariatric surgery status (principal); R11.2 Nausea with vomiting, unspecified; R10.9 Unspecified abdominal pain

== ENCOUNTER → 2023-03-26 | Outpatient (CLI) | payer BC, OTHER ==
[~2023-03-26] VITALS: Ht 170.2 cm; Wt 89.5 kg
[~2023-03-26] MED LIST changes: +OXYC20TA2 PEG; +OXYC30TA PEG
[2023-03-26 08:08] VITALS: BP 108/76; TEMP 96.9; O2SAT 99
== END ==
LOC: M PAL 07:56
PROVIDERS: ATTEND Nurse Practitioner Adult Health
DX: G40.909 Epilepsy, unspecified, not intractable, without status epilepticus (principal); K31.84 Gastroparesis; Z51.5 Encounter for palliative care; Z98.84 Bariatric surgery status; R10.9 Unspecified abdominal pain; K91.2 Postsurgical malabsorption, not elsewhere classified; Z93.1 Gastrostomy status; Z86.72 Personal history of thrombophlebitis; K21.9 Gastro-esophageal reflux disease without esophagitis; R11.2 Nausea with vomiting, unspecified; Z88.6 Allergy status to analgesic agent; Z88.2 Allergy status to sulfonamides; Z88.8 Allergy status to other drugs, medicaments and biological substances; Z91.018 Allergy to other foods; Z79.891 Long term (current) use of opiate analgesic; Z79.899 Other long term (current) drug therapy

== ENCOUNTER → 2023-03-27 | Outpatient (CLI) | payer BC, OTHER ==
[~2023-03-27] MED LIST changes: +PROHANCE 279.3MG/ML 15ML VIAL As Ordered ONE
== END ==
LOC: M RAD 14:45
PROVIDERS: ATTEND Internal Medicine Gastroenterology
DX: R11.2 Nausea with vomiting, unspecified (principal); R10.9 Unspecified abdominal pain

== ENCOUNTER → 2023-04-09 | Outpatient (REF) | payer OTHER ==
[~2023-04-09] MED LIST changes: -FLUO20SO JT; -FLUO20SO PO; +FLUO20SO15 JT; +FLUO20SO15 PO; -PROHANCE 279.3MG/ML 15ML VIAL As Ordered ONE
[2023-04-09 12:44] LABS: BASO % 0.7 % (0.0-1.0); EOS % 3.5 % (0.0-3.0); HEMATOCRIT 39.3 % (36.0-47.0); HEMOGLOBIN 12.4 g/dl (12.0-15.5); LYMPH % 18.9 % (24.0-44.0); MEAN CORPUSCULAR HEMOGLOBIN 27.9 pg (27.0-33.0); MEAN CORPUSCULAR HGB CONC 31.6 g/dl (32.0-36.5); MEAN CORPUSCULAR VOLUME 88.5 fl (80.0-96.0); MONO % 8.5 % (2.0-8.0); PLATELET COUNT, AUTOMATED 320 10^3/uL (150-450); RED BLOOD COUNT 4.44 10^6/uL (4.00-5.40); WHITE BLOOD COUNT 5.7 10^3/uL (4.0-10.0)
[2023-04-09 12:45] LABS: EOS # 0.2 10^3/uL (0.0-0.5); LYMPH # 1.1 10^3/uL (1.5-5.0); MONO # 0.5 10^3/uL (0.0-0.8); NEUTROPHILS # 3.8 10^3/uL (1.5-8.5)
[2023-04-09 13:15] LABS: ALKALINE PHOSPHATASE 119 U/L (46-116); ALT/SGPT 19 U/L (7.0-40); AST/SGOT < 8 U/L (<34); BILIRUBIN,TOTAL 0.6 MG/DL (0.3-1.2); BLOOD UREA NITROGEN 9 MG/DL (9-23); CALCIUM LEVEL 8.8 MG/DL (8.5-10.1); CARBON DIOXIDE LEVEL 27 MMOL/L (20-31); CHLORIDE LEVEL 105 MMOL/L (98-107); CHOLESTEROL LEVEL 225 MG/DL (<200); CREATININE FOR GFR 0.77 MG/DL (0.55-1.30); GLOMERULAR FILTRATION RATE > 60.0 (>58); GLUCOSE, FASTING 123 MG/DL (60-100); HDL CHOLESTEROL 43.2 MG/DL (>40); LDL CHOLESTEROL 153.4 MG/DL (<100); NON-HDL-C 181.8 MG/DL; PHOSPHORUS LEVEL 3.6 MG/DL (2.5-4.9); POTASSIUM SERUM 4.1 MMOL/L (3.5-5.1); SODIUM LEVEL 140 MMOL/L (136-145); TOTAL PROTEIN 6.4 G/DL (5.7-8.2); TRIGLYCERIDES LEVEL 142 MG/DL (<150)
== END ==
LOC: M LAB REF 11:55
PROVIDERS: ATTEND Internal Medicine Gastroenterology
DX: K31.84 Gastroparesis (principal); D64.9 Anemia, unspecified; Z98.84 Bariatric surgery status

== ENCOUNTER 2023-04-23 12:43 | Observation (INO) | payer BC, OTHER ==
[~2023-04-23] VITALS: Ht 170.2 cm; Wt 83.0 kg
[2023-04-23] MEDS ORDERED: NS 500 ML IV ONE (13:30)
[2023-04-23] MEDS ORDERED: MORPHINE 4 MG/ML 1ML VIAL IV ONE (13:30)
[2023-04-23] MEDS ORDERED: diphenhydrAMINE 50MG/ML VIAL IV ONE (13:30)
[2023-04-23 14:45] LABS: BASO % 0.5 % (0.0-1.0); EOS # 0.1 10^3/uL (0.0-0.5); EOS % 1.7 % (0.0-3.0); HEMATOCRIT 38.1 % (36.0-47.0); HEMOGLOBIN 12.5 g/dl (12.0-15.5); LYMPH % 16.6 % (24.0-44.0); MEAN CORPUSCULAR HGB CONC 32.8 g/dl (32.0-36.5); MEAN CORPUSCULAR VOLUME 85.4 fl (80.0-96.0); MONO # 0.5 10^3/uL (0.0-0.8); MONO % 8.3 % (2.0-8.0); NEUTROPHILS # 4.2 10^3/uL (1.5-8.5); NEUTROPHILS % 72.7 % (36.0-66.0); PLATELET COUNT, AUTOMATED 271 10^3/uL (150-450); RED BLOOD COUNT 4.46 10^6/uL (4.00-5.40); WHITE BLOOD COUNT 5.8 10^3/uL (4.0-10.0)
[2023-04-23 15:10] LABS: RSV AMPLIFICATION NEGATIVE (NEGATIVE)
[2023-04-23 15:43] LABS: ALKALINE PHOSPHATASE 135 U/L (46-116); ALT/SGPT 76 U/L (7.0-40); AST/SGOT 61 U/L (<34); BILIRUBIN,DIRECT 0.1 MG/DL (<0.4); BILIRUBIN,TOTAL 0.7 MG/DL (0.3-1.2); BLOOD UREA NITROGEN 11 MG/DL (9-23); CALCIUM LEVEL 9.1 MG/DL (8.5-10.1); CARBON DIOXIDE LEVEL 25 MMOL/L (20-31); CHLORIDE LEVEL 103 MMOL/L (98-107); CREATININE FOR GFR 0.56 MG/DL (0.55-1.30); GLOMERULAR FILTRATION RATE > 60.0 (>58); GLUCOSE, FASTING 128 MG/DL (60-100); LIPASE 30 U/L (12-53); POTASSIUM SERUM 5.4 MMOL/L (3.5-5.1); SODIUM LEVEL 137 MMOL/L (136-145); TOTAL PROTEIN 6.7 G/DL (5.7-8.2)
[2023-04-23] MEDS ORDERED: MED REC IN PROGRESS XX SCH (16:20)
[2023-04-23] MEDS ORDERED: HYOS125TA SL (16:38)
[2023-04-23] MEDS ORDERED: HOME MED LIST COMPLETE! XX SCH (16:45)
[2023-04-23] MEDS ORDERED: LORazepam 0.5 MG TAB GT PRN (17:05)
[2023-04-23] MEDS ORDERED: HYOSCYAMINE SULFATE 0.125 MG SUBL TABLET SL PRN (17:05)
[2023-04-23] MEDS ORDERED: ACETAMINOPHEN TAB 650MG DOSE (2X325MG) JT PRN (17:05)
[2023-04-23] MEDS ORDERED: ALBUTEROL 90 MCG/ACT 8GM HFA INHALER INH PRN (17:05)
[2023-04-23] MEDS: MIDODRINE 5 MG TAB PO SCH (18:35)
[2023-04-23] MEDS: D5W/0.9% SODIUM CHLORIDE 1,000 ML IV SCH ×2 (18:36→20:08)
[2023-04-23 18:38] LABS: PHOSPHORUS LEVEL 3.7 MG/DL (2.5-4.9)
[2023-04-23] MEDS ORDERED: SODIUM CHLORIDE 0.9% 1000ML IV ONE (18:45)
[2023-04-23 19:50] VITALS: BP 96/54; TEMP 98.2; O2SAT 97
[2023-04-23] MEDS: oxyCODONE 5MG TAB JT PRN (20:10)
[2023-04-23] MEDS: zolPIDEM TARTRATE 5 MG TAB JT SCH (21:00)
[2023-04-23] MEDS ORDERED: LEVETIRACETAM 500 MG/5 ML IV SCH (21:00)
[2023-04-23] MEDS ORDERED: LORazepam 2 MG/ML 1ML VIAL IV PRN (21:20)
[2023-04-23] MEDS: MORPHINE 10 MG/ML 1ML VIAL IV PRN (22:06)
[2023-04-23] MEDS: diphenhydrAMINE 50MG/ML VIAL IV SCH (22:06)
[2023-04-23] MEDS: PANTOPRAZOLE 40MG VIAL IV SCH (22:06)
[2023-04-23] MEDS: ENOXAPARIN 60MG/0.6ML SYRINGE (J1650 PER 10MG) SC SCH (22:07)
[2023-04-23] MEDS: levETIRAcetam INJection 1,000 MG in D5W 100 ML IV SCH (22:07)
[2023-04-23] MEDS: NEOSPORIN TOP OINT 15GM TOP SCH (22:08)
[2023-04-24] MEDS: MORPHINE 10 MG/ML 1ML VIAL IV PRN (01:45)
[2023-04-24] MEDS ORDERED: diphenhydrAMINE 50MG/ML VIAL IV ONE (03:35)
[2023-04-24] MEDS: oxyCODONE 5MG TAB JT PRN ×3 (04:18→22:07)
[2023-04-24 06:00] VITALS: BP 95/58; TEMP 97.9; O2SAT 99
[2023-04-24 06:06] LABS: HEMATOCRIT 35.4 % (36.0-47.0); HEMOGLOBIN 11.1 g/dl (12.0-15.5); MEAN CORPUSCULAR HEMOGLOBIN 27.8 pg (27.0-33.0); MEAN CORPUSCULAR HGB CONC 31.4 g/dl (32.0-36.5); MEAN CORPUSCULAR VOLUME 88.7 fl (80.0-96.0); PLATELET COUNT, AUTOMATED 236 10^3/uL (150-450); RED BLOOD COUNT 3.99 10^6/uL (4.00-5.40); WHITE BLOOD COUNT 4.5 10^3/uL (4.0-10.0)
[2023-04-24 06:38] LABS: BLOOD UREA NITROGEN 7 MG/DL (9-23); CALCIUM LEVEL 9.2 MG/DL (8.5-10.1); CARBON DIOXIDE LEVEL 27 MMOL/L (20-31); CHLORIDE LEVEL 109 MMOL/L (98-107); CREATININE FOR GFR 0.59 MG/DL (0.55-1.30); GLOMERULAR FILTRATION RATE > 60.0 (>58); GLUCOSE, FASTING 111 MG/DL (60-100); POTASSIUM SERUM 4.2 MMOL/L (3.5-5.1); SODIUM LEVEL 140 MMOL/L (136-145)
[2023-04-24 08:48] VITALS: BP 84/54
[2023-04-24] MEDS: levETIRAcetam INJection 1,000 MG in D5W 100 ML IV SCH ×2 (08:50→22:07)
[2023-04-24] MEDS: diphenhydrAMINE 50MG/ML VIAL IV SCH (08:52)
[2023-04-24] MEDS: PANTOPRAZOLE 40MG VIAL IV SCH ×2 (08:52→22:05)
[2023-04-24] MEDS: NEOSPORIN TOP OINT 15GM TOP SCH ×2 (08:55→22:09)
[2023-04-24] MEDS: FLUoxetine 20MG CAP JT SCH (08:55)
[2023-04-24] MEDS: ROSUVASTATIN 10 MG TAB (CRESTOR) GT SCH (08:55)
[2023-04-24] MEDS: MIDODRINE 5 MG TAB PO SCH ×3 (08:55→18:13)
[2023-04-24] MEDS ORDERED: ISOVUE-370 76% 100ML VIAL As Ordered ONE (09:10)
[2023-04-24] MEDS ORDERED: TPN IV SCH ×2 (10:50→18:00)
[2023-04-24] MEDS ORDERED: ATIV1TAB10 GT (11:00)
[2023-04-24] MEDS ORDERED: VANCOMYCIN HCL 750 MG, VIAL MATE ADAPTER 1 EACH in D5W 250 ML IV ONE ×2 (11:00→12:00)
[2023-04-24] MEDS ORDERED: OXYC20TA2 PEG (11:00)
[2023-04-24 13:44] VITALS: BP 102/68
[2023-04-24 14:00] VITALS: BP 111/59; TEMP 98.1; O2SAT 98
[2023-04-24] MEDS ORDERED: LIDOCAINE 1% MDV 20ML VIAL As Ordered ONE (16:29)
[2023-04-24] MEDS ORDERED: diphenhydrAMINE 50MG/ML VIAL IV PRN (18:50)
[2023-04-24 20:00] VITALS: BP 100/55; TEMP 98.1; O2SAT 96
[2023-04-24] MEDS: ONDANSETRON 4MG 2ML VIAL IV PRN (20:19)
[2023-04-24] MEDS: VANCOMYCIN HCL 1,000 MG, VIAL MATE ADAPTER 1 EACH in D5W 250 ML IV SCH (20:19)
[2023-04-24] MEDS: APTIOM 800 MG JT SCH (22:05)
[2023-04-24] MEDS: zolPIDEM TARTRATE 5 MG TAB JT SCH (22:06)
[2023-04-24] MEDS: ENOXAPARIN 60MG/0.6ML SYRINGE (J1650 PER 10MG) SC SCH (22:07)
[2023-04-24] MEDS: SODIUM CHLORIDE 0.9% INJ 10 ML SYR IV PRN (23:13)
[2023-04-25] MEDS: VANCOMYCIN HCL 1,000 MG, VIAL MATE ADAPTER 1 EACH in D5W 250 ML IV SCH (04:10)
[2023-04-25] MEDS: oxyCODONE 5MG TAB JT PRN ×3 (04:17→21:32)
[2023-04-25] MEDS: ONDANSETRON 4MG 2ML VIAL IV PRN ×4 (04:17→23:42)
[2023-04-25] MEDS: SODIUM CHLORIDE 0.9% INJ 10 ML SYR IV SCH ×2 (05:27→17:51)
[2023-04-25 06:00] VITALS: BP 96/57; TEMP 98.1; O2SAT 95
[2023-04-25 06:03] LABS: BASO % 0.5 % (0.0-1.0); EOS # 0.2 10^3/uL (0.0-0.5); EOS % 2.5 % (0.0-3.0); HEMATOCRIT 37.6 % (36.0-47.0); HEMOGLOBIN 11.9 g/dl (12.0-15.5); LYMPH # 1.1 10^3/uL (1.5-5.0); MEAN CORPUSCULAR HEMOGLOBIN 27.7 pg (27.0-33.0); MEAN CORPUSCULAR HGB CONC 31.6 g/dl (32.0-36.5); MEAN CORPUSCULAR VOLUME 87.6 fl (80.0-96.0); MONO # 0.5 10^3/uL (0.0-0.8); MONO % 7.2 % (2.0-8.0); NEUTROPHILS # 5.4 10^3/uL (1.5-8.5); NEUTROPHILS % 74.4 % (36.0-66.0); PLATELET COUNT, AUTOMATED 257 10^3/uL (150-450); RED BLOOD COUNT 4.29 10^6/uL (4.00-5.40); WHITE BLOOD COUNT 7.3 10^3/uL (4.0-10.0)
[2023-04-25 06:11] LABS: C REACTIVE PROTEIN QUANTITATIV < 0.40 MG/DL (<1.0)
[2023-04-25 06:24] LABS: PROCALCITONIN <0.04 ng/ml
[2023-04-25 06:28] LABS: BLOOD UREA NITROGEN 15 MG/DL (9-23); CALCIUM LEVEL 9.1 MG/DL (8.5-10.1); CARBON DIOXIDE LEVEL 28 MMOL/L (20-31); CHLORIDE LEVEL 103 MMOL/L (98-107); CREATININE FOR GFR 0.58 MG/DL (0.55-1.30); GLOMERULAR FILTRATION RATE > 60.0 (>58); GLUCOSE, FASTING 144 MG/DL (60-100); POTASSIUM SERUM 4.5 MMOL/L (3.5-5.1); SODIUM LEVEL 138 MMOL/L (136-145)
[2023-04-25] MEDS: diphenhydrAMINE 50MG/ML VIAL IV PRN ×3 (09:37→23:42)
[2023-04-25] MEDS: NEOSPORIN TOP OINT 15GM TOP SCH (09:37)
[2023-04-25] MEDS: PANTOPRAZOLE 40MG VIAL IV SCH ×2 (09:37→21:30)
[2023-04-25] MEDS: levETIRAcetam INJection 1,000 MG in D5W 100 ML IV SCH ×2 (09:38→21:30)
[2023-04-25] MEDS: MIDODRINE 5 MG TAB PO SCH ×3 (09:38→17:50)
[2023-04-25] MEDS: ROSUVASTATIN 10 MG TAB (CRESTOR) GT SCH (09:38)
[2023-04-25] MEDS: SODIUM CHLORIDE 0.9% INJ 10 ML SYR IV PRN ×2 (09:38→12:58)
[2023-04-25] MEDS: FLUoxetine 20MG CAP JT SCH (09:38)
[2023-04-25 09:39] VITALS: BP 92/60
[2023-04-25] MEDS: VANCOMYCIN HCL 750 MG, VIAL MATE ADAPTER 1 EACH in D5W 250 ML IV SCH ×2 (12:57→21:29)
[2023-04-25 14:00] VITALS: BP 100/57; TEMP 97.9; O2SAT 96
[2023-04-25] MEDS ORDERED: OXYC20TA2 PEG (15:43)
[2023-04-25 20:58] VITALS: BP 102/58; TEMP 98.1; O2SAT 98
[2023-04-25] MEDS: ENOXAPARIN 60MG/0.6ML SYRINGE (J1650 PER 10MG) SC SCH (21:30)
[2023-04-25] MEDS: zolPIDEM TARTRATE 5 MG TAB JT SCH (21:30)
[2023-04-25] MEDS: APTIOM 800 MG JT SCH (21:31)
[2023-04-25] MEDS: NYSTATIN 100,000 UNITS/GM TOPICAL PWD 15GM TOP SCH (21:32)
[2023-04-26] MEDS: oxyCODONE 5MG TAB JT PRN ×2 (03:22→09:18)
[2023-04-26] MEDS: VANCOMYCIN HCL 750 MG, VIAL MATE ADAPTER 1 EACH in D5W 250 ML IV SCH ×2 (04:55→12:12)
[2023-04-26 05:48] VITALS: BP 102/57; TEMP 98.1; O2SAT 100
[2023-04-26] MEDS: SODIUM CHLORIDE 0.9% INJ 10 ML SYR IV SCH (06:01)
[2023-04-26] MEDS: ONDANSETRON 4MG 2ML VIAL IV PRN ×2 (06:01→12:13)
[2023-04-26] MEDS: diphenhydrAMINE 50MG/ML VIAL IV PRN ×2 (06:01→12:16)
[2023-04-26 06:32] LABS: BASO % 0.6 % (0.0-1.0); EOS # 0.4 10^3/uL (0.0-0.5); EOS % 7.5 % (0.0-3.0); HEMATOCRIT 34.4 % (36.0-47.0); HEMOGLOBIN 11.1 g/dl (12.0-15.5); LYMPH # 1.3 10^3/uL (1.5-5.0); LYMPH % 27.7 % (24.0-44.0); MEAN CORPUSCULAR HEMOGLOBIN 28.3 pg (27.0-33.0); MEAN CORPUSCULAR HGB CONC 32.3 g/dl (32.0-36.5); MEAN CORPUSCULAR VOLUME 87.8 fl (80.0-96.0); MONO # 0.5 10^3/uL (0.0-0.8); MONO % 11.3 % (2.0-8.0); NEUTROPHILS # 2.5 10^3/uL (1.5-8.5); NEUTROPHILS % 52.5 % (36.0-66.0); PLATELET COUNT, AUTOMATED 228 10^3/uL (150-450); RED BLOOD COUNT 3.92 10^6/uL (4.00-5.40); WHITE BLOOD COUNT 4.8 10^3/uL (4.0-10.0)
[2023-04-26 06:45] LABS: BLOOD UREA NITROGEN 8 MG/DL (9-23); CALCIUM LEVEL 8.9 MG/DL (8.5-10.1); CARBON DIOXIDE LEVEL 31 MMOL/L (20-31); CHLORIDE LEVEL 100 MMOL/L (98-107); CREATININE FOR GFR 0.69 MG/DL (0.55-1.30); GLOMERULAR FILTRATION RATE > 60.0 (>58); GLUCOSE, FASTING 165 MG/DL (60-100); POTASSIUM SERUM 3.6 MMOL/L (3.5-5.1); SODIUM LEVEL 135 MMOL/L (136-145)
[2023-04-26] MEDS ORDERED: CEFDINIR 250MG/5ML 60ML SUSP BTL JT SCH (09:00)
[2023-04-26] MEDS ORDERED: [UNRECOGNIZED DRUG - OTHER] IV SCH (09:00)
[2023-04-26] MEDS: levETIRAcetam INJection 1,000 MG in D5W 100 ML IV SCH (09:16)
[2023-04-26] MEDS: PANTOPRAZOLE 40MG VIAL IV SCH (09:16)
[2023-04-26] MEDS: MIDODRINE 5 MG TAB PO SCH ×2 (09:17→12:12)
[2023-04-26] MEDS: FLUoxetine 20MG CAP JT SCH (09:17)
[2023-04-26] MEDS: ROSUVASTATIN 10 MG TAB (CRESTOR) GT SCH (09:17)
[2023-04-26] MEDS: NYSTATIN 100,000 UNITS/GM TOPICAL PWD 15GM TOP SCH (09:18)
[2023-04-26] MEDS: SODIUM CHLORIDE 0.9% INJ 10 ML SYR IV PRN (09:18)
[2023-04-26] MEDS ORDERED: CEFD250S26 JT (11:55)
[2023-04-26] MEDS ORDERED: NYST1POW9 TOP (12:08)
[2023-04-26] MEDS ORDERED: DALV1SOL IV (12:08)
[2023-04-26 14:00] VITALS: BP 102/59; TEMP 97.9; O2SAT 98
[2023-05-07] MEDS ORDERED: OXYC20TA2 PEG (17:01)
== END 2023-04-26 14:44 | disposition home or self-care (01) ==
LOC: M ED 12:43 → M ED INP 12:44 → M MSPAV 19:50
PROVIDERS: ADMIT Internal Medicine; ATTEND Internal Medicine
DX: T82.398A Other mechanical complication of other vascular grafts, initial encounter (principal); Y71.2 Prosthetic and other implants, materials and accessory cardiovascular devices associated with adverse incidents; K31.84 Gastroparesis; Z99.89 Dependence on other enabling machines and devices; R10.9 Unspecified abdominal pain; G89.29 Other chronic pain; F11.20 Opioid dependence, uncomplicated; F13.20 Sedative, hypnotic or anxiolytic dependence, uncomplicated; K94.22 Gastrostomy infection; K94.12 Enterostomy infection; B95.5 Unspecified streptococcus as the cause of diseases classified elsewhere; B95.7 Other staphylococcus as the cause of diseases classified elsewhere; B96.1 Klebsiella pneumoniae [K. pneumoniae] as the cause of diseases classified elsewhere; K91.2 Postsurgical malabsorption, not elsewhere classified; G40.209 Localization-related (focal) (partial) symptomatic epilepsy and epileptic syndromes with complex partial seizures, not intractable, without status epilepticus; D68.59 Other primary thrombophilia; Z86.718 Personal history of other venous thrombosis and embolism; Z98.84 Bariatric surgery status; K95.89 Other complications of other bariatric procedure; K76.0 Fatty (change of) liver, not elsewhere classified; F32.A Depression, unspecified; I95.1 Orthostatic hypotension; K21.9 Gastro-esophageal reflux disease without esophagitis; E78.5 Hyperlipidemia, unspecified; J45.909 Unspecified asthma, uncomplicated; D50.9 Iron deficiency anemia, unspecified; Z86.14 Personal history of Methicillin resistant Staphylococcus aureus infection; G47.00 Insomnia, unspecified; Z87.19 Personal history of other diseases of the digestive system; Z79.899 Other long term (current) drug therapy; Z79.2 Long term (current) use of antibiotics; Z88.2 Allergy status to sulfonamides; Z88.1 Allergy status to other antibiotic agents; Z88.5 Allergy status to narcotic agent; Z88.8 Allergy status to other drugs, medicaments and biological substances
CPT/HCPCS: 36415; 36569; 74177; 80048; 80076; 80202; 83690; 83735; 84100; 84145; 85025; 85027; 86140; 87070; 87077; 87186; 87205; 87631; 87641; 93005; 93041; 96361; 96365; 96366; 96372; 96375; 96376; 99285; C1751; C9113; J1200; J1650; J1953; J2405; Q9967

== ENCOUNTER 2023-04-26 14:50 | Outpatient (CLI) | payer BC, OTHER ==
[~2023-04-26] VITALS: Ht 165.1 cm; Wt 83.0 kg
[~2023-04-26 14:50] MED LIST changes: +CEFD250S26 JT; +DALV1SOL IV; +HYOS125TA SL; +NYST1POW9 TOP
[2023-04-26 14:58] VITALS: BP 119/58; O2SAT 98
[2023-04-26] MEDS ORDERED: SODIUM CHLORIDE 0.9% INJ 10 ML SYR IV PRN (15:10)
[2023-04-26] MEDS ORDERED: DALBAVANCIN 1,500 MG in D5W 250 ML IV ONE (16:00)
[2023-04-26 16:26] VITALS: BP 123/61; O2SAT 100
[2023-04-26] MEDS ORDERED: SODIUM CHLORIDE 0.9% INJ 10 ML SYR IV SCH (18:00)
== END 2023-04-26 16:30 ==
LOC: M INFU 14:50
PROVIDERS: ATTEND Internal Medicine
DX: L03.90 Cellulitis, unspecified (principal); A49.02 Methicillin resistant Staphylococcus aureus infection, unspecified site; Z88.1 Allergy status to other antibiotic agents; Z88.2 Allergy status to sulfonamides; Z88.5 Allergy status to narcotic agent; Z88.8 Allergy status to other drugs, medicaments and biological substances; Z91.018 Allergy to other foods
CPT/HCPCS: 96365; J0875

== ENCOUNTER → 2023-05-08 | Outpatient (CLI) | payer BC, OTHER ==
[~2023-05-08] MED LIST changes: +HOLTER MONITOR XX
[2023-05-08 12:44] LABS: BASO % 0.7 % (0.0-1.0); EOS # 0.1 10^3/uL (0.0-0.5); EOS % 2.1 % (0.0-3.0); HEMOGLOBIN 13.7 g/dl (12.0-15.5); LYMPH # 1.1 10^3/uL (1.5-5.0); LYMPH % 18.4 % (24.0-44.0); MEAN CORPUSCULAR HEMOGLOBIN 28.7 pg (27.0-33.0); MEAN CORPUSCULAR HGB CONC 32.6 g/dl (32.0-36.5); MEAN CORPUSCULAR VOLUME 87.9 fl (80.0-96.0); MONO # 0.3 10^3/uL (0.0-0.8); MONO % 5.6 % (2.0-8.0); NEUTROPHILS # 4.2 10^3/uL (1.5-8.5); NEUTROPHILS % 72.8 % (36.0-66.0); PLATELET COUNT, AUTOMATED 269 10^3/uL (150-450); RED BLOOD COUNT 4.78 10^6/uL (4.00-5.40); WHITE BLOOD COUNT 5.7 10^3/uL (4.0-10.0)
[2023-05-08 13:03] LABS: ALBUMIN 4.3 G/DL (3.2-5.2); ALKALINE PHOSPHATASE 122 U/L (46-116); ALT/SGPT 35 U/L (7.0-40); AST/SGOT 24 U/L (<34); BILIRUBIN,TOTAL 0.7 MG/DL (0.3-1.2); BLOOD UREA NITROGEN 13 MG/DL (9-23); CALCIUM LEVEL 9.8 MG/DL (8.5-10.1); CARBON DIOXIDE LEVEL 25 MMOL/L (20-31); CHLORIDE LEVEL 105 MMOL/L (98-107); CHOLESTEROL LEVEL 252 MG/DL (<200); CHOLESTEROL RISK RATIO 4.28 (<5); CREATININE FOR GFR 0.57 MG/DL (0.55-1.30); GLOMERULAR FILTRATION RATE > 60.0 (>58); GLUCOSE, FASTING 131 MG/DL (60-100); HDL CHOLESTEROL 58.8 MG/DL (>40); LDL CHOLESTEROL 153.6 MG/DL (<100); MAGNESIUM LEVEL 1.9 MG/DL (1.8-2.4); NON-HDL-C 193.2 MG/DL; PHOSPHORUS LEVEL 3.6 MG/DL (2.5-4.9); POTASSIUM SERUM 4.4 MMOL/L (3.5-5.1); SODIUM LEVEL 141 MMOL/L (136-145); TOTAL PROTEIN 7.3 G/DL (5.7-8.2); TRIGLYCERIDES LEVEL 198 MG/DL (<150)
== END ==
LOC: M LAB 11:11
PROVIDERS: ATTEND Internal Medicine Gastroenterology
DX: K21.00 Gastro-esophageal reflux disease with esophagitis, without bleeding (principal); K31.84 Gastroparesis; D64.9 Anemia, unspecified; Z98.84 Bariatric surgery status

== ENCOUNTER → 2023-05-16 | Outpatient (CLI) | payer BC, OTHER | LOC: M EKG 10:27 | PROVIDERS: ATTEND Emergency Medicine | DX: R00.2 Palpitations (principal) ==

== ENCOUNTER → 2023-05-23 | Outpatient (CLI) | payer BC, OTHER ==
[~2023-05-23] MED LIST changes: +DICL100G10 TOP; -DICL1GEL3 TOP
== END ==
LOC: M PAL 08:06
PROVIDERS: ATTEND Nurse Practitioner Adult Health
DX: G40.909 Epilepsy, unspecified, not intractable, without status epilepticus (principal); K31.84 Gastroparesis; Z51.5 Encounter for palliative care; Z98.84 Bariatric surgery status; R10.9 Unspecified abdominal pain; K91.2 Postsurgical malabsorption, not elsewhere classified; Z93.1 Gastrostomy status; Z86.72 Personal history of thrombophlebitis; K21.9 Gastro-esophageal reflux disease without esophagitis; R11.2 Nausea with vomiting, unspecified; Z88.2 Allergy status to sulfonamides; Z88.8 Allergy status to other drugs, medicaments and biological substances; Z91.018 Allergy to other foods; Z79.891 Long term (current) use of opiate analgesic; Z79.899 Other long term (current) drug therapy; Z88.5 Allergy status to narcotic agent; Z88.6 Allergy status to analgesic agent; F41.9 Anxiety disorder, unspecified; F32.A Depression, unspecified; D50.9 Iron deficiency anemia, unspecified

== ENCOUNTER → 2023-06-10 | Outpatient (REF) | payer BC, OTHER ==
[2023-06-10 21:18] LABS: BASO % 0.5 % (0.0-1.0); EOS % 0.4 % (0.0-3.0); HEMATOCRIT 37.7 % (36.0-47.0); HEMOGLOBIN 12.2 g/dl (12.0-15.5); LYMPH # 0.6 10^3/uL (1.5-5.0); LYMPH % 11.4 % (24.0-44.0); MEAN CORPUSCULAR HEMOGLOBIN 28.1 pg (27.0-33.0); MEAN CORPUSCULAR HGB CONC 32.4 g/dl (32.0-36.5); MEAN CORPUSCULAR VOLUME 86.9 fl (80.0-96.0); MONO # 0.5 10^3/uL (0.0-0.8); MONO % 9.2 % (2.0-8.0); NEUTROPHILS # 4.3 10^3/uL (1.5-8.5); NEUTROPHILS % 78.1 % (36.0-66.0); PLATELET COUNT, AUTOMATED 192 10^3/uL (150-450); RED BLOOD COUNT 4.34 10^6/uL (4.00-5.40); WHITE BLOOD COUNT 5.5 10^3/uL (4.0-10.0)
[2023-06-10 21:40] LABS: ALBUMIN 3.8 G/DL (3.2-5.2); ALKALINE PHOSPHATASE 269 U/L (46-116); ALT/SGPT 143 U/L (7.0-40); AST/SGOT 215 U/L (<34); BILIRUBIN,TOTAL 1.6 MG/DL (0.3-1.2); BLOOD UREA NITROGEN 16 MG/DL (9-23); CALCIUM LEVEL 9.3 MG/DL (8.5-10.1); CARBON DIOXIDE LEVEL 26 MMOL/L (20-31); CHLORIDE LEVEL 101 MMOL/L (98-107); CHOLESTEROL LEVEL 204 MG/DL (<200); CHOLESTEROL RISK RATIO 4.59 (<5); CREATININE FOR GFR 0.74 MG/DL (0.55-1.30); GLOMERULAR FILTRATION RATE > 60.0 (>58); GLUCOSE, FASTING 180 MG/DL (60-100); HDL CHOLESTEROL 44.4 MG/DL (>40); LDL CHOLESTEROL 123.6 MG/DL (<100); MAGNESIUM LEVEL 1.8 MG/DL (1.8-2.4); NON-HDL-C 159.6 MG/DL; PHOSPHORUS LEVEL 3.9 MG/DL (2.5-4.9); POTASSIUM SERUM 4.2 MMOL/L (3.5-5.1); SODIUM LEVEL 140 MMOL/L (136-145); TOTAL PROTEIN 6.7 G/DL (5.7-8.2); TRIGLYCERIDES LEVEL 180 MG/DL (<150)
== END ==
LOC: M LAB REF 20:06
PROVIDERS: ATTEND Internal Medicine Gastroenterology
DX: K31.84 Gastroparesis (principal); K21.00 Gastro-esophageal reflux disease with esophagitis, without bleeding; Z98.84 Bariatric surgery status; D64.9 Anemia, unspecified

== ENCOUNTER 2023-06-23 15:24 | Inpatient (IN) | payer BC, OTHER ==
[~2023-06-23] VITALS: Ht 170.2 cm; Wt 96.3 kg
[~2023-06-23 15:24] MED LIST changes: +DIAZ-654 PO; +HYOS125TA JT; -HYOS125TA SL; -MIDO5TA PO; -MISO200T56; +MISO200T83; -ROSU10TA6 GT; +ROSU10TA6 JT; -VALI10TA PO
[2023-06-23] MEDS ORDERED: diphenhydrAMINE 50MG/ML VIAL IV STA (17:49)
[2023-06-23] MEDS ORDERED: MORPHINE 4 MG/ML 1ML VIAL IV ONE (17:50)
[2023-06-23] MEDS ORDERED: NS 2,630 ML in IV 1 EA IV ONE (17:50)
[2023-06-23] MEDS ORDERED: ONDANSETRON 4MG 2ML VIAL IV ONE (17:50)
[2023-06-23] MEDS ORDERED: SODIUM CHLORIDE 0.9% INJ 10 ML SYR IV PRN (17:55)
[2023-06-23] MEDS ORDERED: cefTRIAXone SOD 1 GM in D5W MINI-BAG PLUS 50 ML IV ONE (18:15)
[2023-06-23] MEDS ORDERED: ISOVUE-370 76% 100ML VIAL As Ordered ONE (18:56)
[2023-06-23 19:10] LABS: BASO % 0.2 % (0.0-1.0); HEMATOCRIT 36.7 % (36.0-47.0); HEMOGLOBIN 11.7 g/dl (12.0-15.5); LYMPH % 6.8 % (24.0-44.0); MEAN CORPUSCULAR HEMOGLOBIN 27.5 pg (27.0-33.0); MEAN CORPUSCULAR HGB CONC 31.9 g/dl (32.0-36.5); MEAN CORPUSCULAR VOLUME 86.4 fl (80.0-96.0); MONO # 1.3 10^3/uL (0.0-0.8); NEUTROPHILS # 11.9 10^3/uL (1.5-8.5); NEUTROPHILS % 83.7 % (36.0-66.0); PLATELET COUNT, AUTOMATED 258 10^3/uL (150-450); RED BLOOD COUNT 4.25 10^6/uL (4.00-5.40); WHITE BLOOD COUNT 14.2 10^3/uL (4.0-10.0)
[2023-06-23 19:20] LABS: RSV AMPLIFICATION NEGATIVE (NEGATIVE)
[2023-06-23] MEDS ORDERED: ACETAMINOPHEN 325 MG TAB PO ONE (19:20)
[2023-06-23 19:35] LABS: ALBUMIN 3.5 G/DL (3.2-5.2); BILIRUBIN,DIRECT 0.5 MG/DL (<0.4); BILIRUBIN,TOTAL 1.2 MG/DL (0.3-1.2); TOTAL PROTEIN 6.6 G/DL (5.7-8.2)
[2023-06-23] MEDS ORDERED: HYDROMORPHONE HCL 0.5 MG/ 0.5 ML SYRINGE IV ONE (19:55)
[2023-06-23] MEDS ORDERED: KETOROLAC 30 MG/ML 1ML VIAL IV PRN (20:05)
[2023-06-23] MEDS ORDERED: ACETAMINOPHEN TAB 650MG DOSE (2X325MG) PO PRN (20:05)
[2023-06-23] MEDS: LR 1,000 ML IV SCH (21:45)
[2023-06-23] MEDS ORDERED: MIDODRINE 5 MG TAB PO ONE (22:05)
[2023-06-23 22:25] VITALS: BP 108/66; TEMP 96.6; O2SAT 100
[2023-06-23] MEDS ORDERED: oxyCODONE 5MG TAB PO ONE (22:55)
[2023-06-23] MEDS ORDERED: ENOX100I3 SC (23:26)
[2023-06-23] MEDS ORDERED: ATIV1TAB10 JT (23:26)
[2023-06-23] MEDS ORDERED: OXYC20TA2 JT (23:26)
[2023-06-23] MEDS ORDERED: DICL100G10 TOP (23:26)
[2023-06-23] MEDS ORDERED: APAP325T4 JT (23:29)
[2023-06-23] MEDS ORDERED: HOME MED LIST COMPLETE! XX SCH (23:35)
[2023-06-23 23:38] VITALS: BP 101/55; TEMP 98; O2SAT 98
[2023-06-24] MEDS ORDERED: LORazepam 0.5 MG TAB JT PRN (02:40)
[2023-06-24 03:39] VITALS: BP 105/51; TEMP 97.1; O2SAT 98
[2023-06-24] MEDS: oxyCODONE 5MG TAB JT PRN ×5 (03:55→20:40)
[2023-06-24] MEDS: LR 1,000 ML IV SCH ×3 (05:40→20:05)
[2023-06-24] MEDS: zolPIDEM TARTRATE 5 MG TAB JT SCH ×2 (05:40→20:40)
[2023-06-24 07:32] LABS: BLOOD UREA NITROGEN 7 MG/DL (9-23); CALCIUM LEVEL 8.1 MG/DL (8.5-10.1); CARBON DIOXIDE LEVEL 26 MMOL/L (20-31); CHLORIDE LEVEL 107 MMOL/L (98-107); CREATININE FOR GFR 0.74 MG/DL (0.55-1.30); GLOMERULAR FILTRATION RATE > 60.0 (>58); GLUCOSE, FASTING 141 MG/DL (60-100); POTASSIUM SERUM 4.2 MMOL/L (3.5-5.1); SODIUM LEVEL 141 MMOL/L (136-145)
[2023-06-24 08:42] VITALS: BP 110/54; TEMP 98.6; O2SAT 96
[2023-06-24] MEDS ORDERED: FLUOXETINE 20 MG/5 ML JT SCH (09:00)
[2023-06-24] MEDS ORDERED: ENOXAPARIN 40MG/0.4ML SYRINGE (J1650 PER 10MG) SC SCH (09:00)
[2023-06-24] MEDS ORDERED: levETIRAcetam 250MG TABLET (KEPPRA) JT SCH ×2 (09:00)
[2023-06-24] MEDS ORDERED: SODIUM CHLORIDE 0.9% INJ 10 ML SYR IV PRN (09:40)
[2023-06-24] MEDS: PANTOPRAZOLE 40MG VIAL IV SCH ×2 (09:42→20:40)
[2023-06-24] MEDS: ENOXAPARIN 100MG/1ML SYRINGE (J1650 PER 10MG) SC SCH (09:42)
[2023-06-24] MEDS: ONDANSETRON 4MG 2ML VIAL IV PRN (09:43)
[2023-06-24] MEDS: diphenhydrAMINE 50MG/ML VIAL IV PRN ×2 (09:43→20:41)
[2023-06-24] MEDS ORDERED: **NOTE PATIENT COMMENT** MISC XX SCH (10:45)
[2023-06-24 12:36] VITALS: BP 96/52; TEMP 98; O2SAT 98
[2023-06-24] MEDS: levETIRAcetam INJection 1,000 MG in D5W 100 ML IV SCH (12:48)
[2023-06-24] MEDS: ROSUVASTATIN 10 MG TAB (CRESTOR) JT SCH (13:05)
[2023-06-24 16:30] VITALS: BP 98/50; TEMP 97.8; O2SAT 98
[2023-06-24] MEDS: cefTRIAXone SOD 1 GM in D5W MINI-BAG PLUS 50 ML IV SCH (17:27)
[2023-06-24] MEDS: SODIUM CHLORIDE 0.9% INJ 10 ML SYR IV SCH (18:17)
[2023-06-24 19:48] VITALS: BP 86/52; TEMP 97.8; O2SAT 95
[2023-06-24] MEDS ORDERED: zolPIDEM TARTRATE 5 MG TAB JT SCH (21:00)
[2023-06-24] MEDS ORDERED: APTIOM 800 MG JT SCH (21:00)
[2023-06-24 23:48] VITALS: BP 78/50; TEMP 97.2; O2SAT 95
[2023-06-25] VITALS (7 sets, daily range): BP systolic 76–120; BP diastolic 40–59; TEMP 96.3–97.6; O2SAT 94–97
[2023-06-25] MEDS ORDERED: LIDOCAINE 5% (LIDODERM) PATCH TD ONE
[2023-06-25] MEDS ORDERED: MIDODRINE 5 MG TAB PO ONE
[2023-06-25] MEDS: levETIRAcetam INJection 1,000 MG in D5W 100 ML IV SCH ×2 (00:23→13:18)
[2023-06-25] MEDS: oxyCODONE 5MG TAB JT PRN ×6 (01:09→22:42)
[2023-06-25] MEDS: diphenhydrAMINE 50MG/ML VIAL IV PRN ×3 (02:48→20:56)
[2023-06-25] MEDS: ONDANSETRON 4MG 2ML VIAL IV PRN ×4 (02:48→20:56)
[2023-06-25] MEDS: LR 1,000 ML IV SCH ×3 (04:05→21:04)
[2023-06-25] MEDS ORDERED: LACTATED RINGER'S 1000 ML IV ONE ×2 (05:00→20:45)
[2023-06-25] MEDS: SODIUM CHLORIDE 0.9% INJ 10 ML SYR IV SCH ×2 (05:58→18:40)
[2023-06-25 06:22] LABS: HEMATOCRIT 29.2 % (36.0-47.0); MEAN CORPUSCULAR HEMOGLOBIN 27.4 pg (27.0-33.0); MEAN CORPUSCULAR HGB CONC 30.8 g/dl (32.0-36.5); PLATELET COUNT, AUTOMATED 213 10^3/uL (150-450); RED BLOOD COUNT 3.28 10^6/uL (4.00-5.40); WHITE BLOOD COUNT 5.9 10^3/uL (4.0-10.0)
[2023-06-25 06:43] LABS: ALBUMIN 2.6 G/DL (3.2-5.2); ALKALINE PHOSPHATASE 156 U/L (46-116); ALT/SGPT 30 U/L (7.0-40); AST/SGOT 29 U/L (<34); BILIRUBIN,TOTAL 0.6 MG/DL (0.3-1.2); BLOOD UREA NITROGEN < 5 MG/DL (9-23); CALCIUM LEVEL 7.9 MG/DL (8.5-10.1); CARBON DIOXIDE LEVEL 29 MMOL/L (20-31); CHLORIDE LEVEL 107 MMOL/L (98-107); CREATININE FOR GFR 0.75 MG/DL (0.55-1.30); GLOMERULAR FILTRATION RATE > 60.0 (>58); GLUCOSE, FASTING 132 MG/DL (60-100); MAGNESIUM LEVEL 1.8 MG/DL (1.8-2.4); POTASSIUM SERUM 3.7 MMOL/L (3.5-5.1); SODIUM LEVEL 142 MMOL/L (136-145); TOTAL PROTEIN 5.2 G/DL (5.7-8.2)
[2023-06-25] MEDS ORDERED: OXYC20TA2 PEG (07:07)
[2023-06-25] MEDS: ENOXAPARIN 100MG/1ML SYRINGE (J1650 PER 10MG) SC SCH (09:13)
[2023-06-25] MEDS: ROSUVASTATIN 10 MG TAB (CRESTOR) JT SCH (09:14)
[2023-06-25] MEDS: PANTOPRAZOLE 40MG VIAL IV SCH ×2 (09:15→20:49)
[2023-06-25] MEDS: MIDODRINE 5 MG TAB JT SCH ×3 (09:15→15:47)
[2023-06-25] MEDS ORDERED: ISOVUE-370 76% 100ML VIAL As Ordered ONE (12:34)
[2023-06-25] MEDS: ACETAMINOPHEN 500 MG TAB PO SCH ×3 (13:17→23:35)
[2023-06-25] MEDS: cefTRIAXone SOD 1 GM in D5W MINI-BAG PLUS 50 ML IV SCH (18:40)
[2023-06-25] MEDS: zolPIDEM TARTRATE 5 MG TAB JT SCH (21:02)
[2023-06-26] MEDS: levETIRAcetam INJection 1,000 MG in D5W 100 ML IV SCH ×2 (00:21→13:58)
[2023-06-26] MEDS: oxyCODONE 5MG TAB JT PRN ×5 (03:32→20:43)
[2023-06-26] MEDS: diphenhydrAMINE 50MG/ML VIAL IV PRN ×4 (03:33→23:18)
[2023-06-26] MEDS: ONDANSETRON 4MG 2ML VIAL IV PRN ×4 (03:33→23:18)
[2023-06-26 04:00] VITALS: BP 98/62; TEMP 97.6; O2SAT 98
[2023-06-26] MEDS: ACETAMINOPHEN 500 MG TAB PO SCH ×3 (05:36→16:57)
[2023-06-26] MEDS: SODIUM CHLORIDE 0.9% INJ 10 ML SYR IV SCH ×2 (06:00→18:00)
[2023-06-26 06:02] LABS: HEMATOCRIT 30.3 % (36.0-47.0); HEMOGLOBIN 9.3 g/dl (12.0-15.5); MEAN CORPUSCULAR HEMOGLOBIN 27.6 pg (27.0-33.0); MEAN CORPUSCULAR HGB CONC 30.7 g/dl (32.0-36.5); MEAN CORPUSCULAR VOLUME 89.9 fl (80.0-96.0); PLATELET COUNT, AUTOMATED 221 10^3/uL (150-450); RED BLOOD COUNT 3.37 10^6/uL (4.00-5.40); WHITE BLOOD COUNT 3.3 10^3/uL (4.0-10.0)
[2023-06-26 06:30] LABS: ALBUMIN 2.4 G/DL (3.2-5.2); ALKALINE PHOSPHATASE 160 U/L (46-116); ALT/SGPT 26 U/L (7.0-40); AST/SGOT 20 U/L (<34); BILIRUBIN,TOTAL 0.3 MG/DL (0.3-1.2); BLOOD UREA NITROGEN < 5 MG/DL (9-23); CALCIUM LEVEL 8.1 MG/DL (8.5-10.1); CARBON DIOXIDE LEVEL 31 MMOL/L (20-31); CHLORIDE LEVEL 110 MMOL/L (98-107); CREATININE FOR GFR 0.76 MG/DL (0.55-1.30); GLOMERULAR FILTRATION RATE > 60.0 (>58); GLUCOSE, FASTING 109 MG/DL (60-100); MAGNESIUM LEVEL 1.9 MG/DL (1.8-2.4); POTASSIUM SERUM 3.9 MMOL/L (3.5-5.1); SODIUM LEVEL 146 MMOL/L (136-145)
[2023-06-26 07:38] VITALS: BP 101/56; TEMP 97; O2SAT 95
[2023-06-26] MEDS: MIDODRINE 5 MG TAB JT SCH ×3 (10:20→16:57)
[2023-06-26] MEDS: ROSUVASTATIN 10 MG TAB (CRESTOR) JT SCH (10:20)
[2023-06-26] MEDS: ENOXAPARIN 100MG/1ML SYRINGE (J1650 PER 10MG) SC SCH (10:30)
[2023-06-26] MEDS: PANTOPRAZOLE 40MG VIAL IV SCH ×2 (10:30→20:44)
[2023-06-26] MEDS: D5W/0.45% SODIUM CHLORIDE 1,000 ML IV SCH ×2 (10:48→20:44)
[2023-06-26 12:05] VITALS: BP 120/58; TEMP 97.2; O2SAT 98
[2023-06-26 16:20] VITALS: BP 115/58; TEMP 97.2; O2SAT 96
[2023-06-26] MEDS: cefTRIAXone SOD 1 GM in D5W MINI-BAG PLUS 50 ML IV SCH (16:58)
[2023-06-26] MEDS ORDERED: MULTIVITAMIN -ADULT INJECTION 10 ML, ZINC/COPPER/MANGANESE/SELENIUM 1 ML in AMINO AC/EL... IV SCH (18:00)
[2023-06-26] MEDS: INSULIN LISPRO (NovoLOG) PER UNIT SC SCH (18:35)
[2023-06-26 19:59] VITALS: BP 132/73; TEMP 97.4; O2SAT 98
[2023-06-26] MEDS: zolPIDEM TARTRATE 5 MG TAB JT SCH (20:44)
[2023-06-27] VITALS: BP 107/57; TEMP 97.6; O2SAT 96
[2023-06-27] MEDS: ACETAMINOPHEN 500 MG TAB PO SCH ×3 (01:05→12:30)
[2023-06-27] MEDS: levETIRAcetam INJection 1,000 MG in D5W 100 ML IV SCH ×2 (01:05→12:30)
[2023-06-27] MEDS: oxyCODONE 5MG TAB JT PRN ×3 (01:06→09:19)
[2023-06-27] MEDS: INSULIN LISPRO (NovoLOG) PER UNIT SC SCH ×3 (01:07→12:00)
[2023-06-27 04:00] VITALS: BP 95/52; TEMP 97.3; O2SAT 98
[2023-06-27] MEDS: SODIUM CHLORIDE 0.9% INJ 10 ML SYR IV SCH (05:47)
[2023-06-27] MEDS: diphenhydrAMINE 50MG/ML VIAL IV PRN (05:48)
[2023-06-27] MEDS: ONDANSETRON 4MG 2ML VIAL IV PRN (05:48)
[2023-06-27 06:07] LABS: HEMATOCRIT 28.3 % (36.0-47.0); HEMOGLOBIN 8.7 g/dl (12.0-15.5); MEAN CORPUSCULAR HEMOGLOBIN 27.4 pg (27.0-33.0); MEAN CORPUSCULAR HGB CONC 30.7 g/dl (32.0-36.5); MEAN CORPUSCULAR VOLUME 89.3 fl (80.0-96.0); PLATELET COUNT, AUTOMATED 234 10^3/uL (150-450); RED BLOOD COUNT 3.17 10^6/uL (4.00-5.40); WHITE BLOOD COUNT 2.9 10^3/uL (4.0-10.0)
[2023-06-27 06:29] LABS: ALBUMIN 2.4 G/DL (3.2-5.2); ALKALINE PHOSPHATASE 172 U/L (46-116); ALT/SGPT 25 U/L (7.0-40); AST/SGOT 15 U/L (<34); BILIRUBIN,TOTAL 0.2 MG/DL (0.3-1.2); BLOOD UREA NITROGEN < 5 MG/DL (9-23); CALCIUM LEVEL 8.1 MG/DL (8.5-10.1); CARBON DIOXIDE LEVEL 30 MMOL/L (20-31); CHLORIDE LEVEL 107 MMOL/L (98-107); CREATININE FOR GFR 0.73 MG/DL (0.55-1.30); GLOMERULAR FILTRATION RATE > 60.0 (>58); GLUCOSE, FASTING 121 MG/DL (60-100); MAGNESIUM LEVEL 1.9 MG/DL (1.8-2.4); POTASSIUM SERUM 3.6 MMOL/L (3.5-5.1); SODIUM LEVEL 144 MMOL/L (136-145); TOTAL PROTEIN 5.1 G/DL (5.7-8.2)
[2023-06-27 08:00] VITALS: BP 116/56; TEMP 96.7; O2SAT 98
[2023-06-27 08:20] LABS: BASO % 0.7 % (0.0-1.0); EOS # 0.3 10^3/uL (0.0-0.5); EOS % 10.1 % (0.0-3.0); LYMPH # 0.8 10^3/uL (1.5-5.0); LYMPH % 26.5 % (24.0-44.0); MONO # 0.4 10^3/uL (0.0-0.8); MONO % 12.2 % (2.0-8.0); NEUTROPHILS # 1.5 10^3/uL (1.5-8.5); NEUTROPHILS % 50.5 % (36.0-66.0)
[2023-06-27] MEDS ORDERED: ENOXAPARIN 100MG/1ML SYRINGE (J1650 PER 10MG) SC SCH (09:00)
[2023-06-27] MEDS: ROSUVASTATIN 10 MG TAB (CRESTOR) JT SCH (09:14)
[2023-06-27] MEDS ORDERED: CEFD300C JT (10:08)
[2023-06-27] MEDS ORDERED: NARC1SPR NARES (10:10)
[2023-06-27] MEDS: PANTOPRAZOLE 40MG VIAL IV SCH (10:33)
[2023-06-27] MEDS: MIDODRINE 5 MG TAB JT SCH ×2 (10:33→12:00)
[2023-06-27 11:57] LABS: PLATELET ESTIMATE NORMAL (NORMAL)
== END 2023-06-27 12:56 | disposition home or self-care (01) | DRG 720 ==
LOC: M ED 15:24 → M ED INP 20:01 → M PCU 22:21
PROVIDERS: ADMIT Internal Medicine; ATTEND Student in an Organized Health Care Education/Training Program
DX: A41.9 Sepsis, unspecified organism (principal); D68.59 Other primary thrombophilia; E87.0 Hyperosmolality and hypernatremia; K91.2 Postsurgical malabsorption, not elsewhere classified; I50.32 Chronic diastolic (congestive) heart failure; F11.20 Opioid dependence, uncomplicated; K31.84 Gastroparesis; Z93.1 Gastrostomy status; N10 Acute pyelonephritis; G40.909 Epilepsy, unspecified, not intractable, without status epilepticus; F41.9 Anxiety disorder, unspecified; G47.00 Insomnia, unspecified; G89.29 Other chronic pain; D50.9 Iron deficiency anemia, unspecified; E55.9 Vitamin D deficiency, unspecified; D72.819 Decreased white blood cell count, unspecified; F19.20 Other psychoactive substance dependence, uncomplicated; F32.A Depression, unspecified; K21.9 Gastro-esophageal reflux disease without esophagitis; Z98.84 Bariatric surgery status; Z79.899 Other long term (current) drug therapy; Z88.2 Allergy status to sulfonamides; Z88.6 Allergy status to analgesic agent; Z88.1 Allergy status to other antibiotic agents; Z91.018 Allergy to other foods; Z88.5 Allergy status to narcotic agent

== ENCOUNTER → 2023-07-23 | Outpatient (CLI) | payer BC, OTHER ==
[~2023-07-23] MED LIST changes: +APAP325T4 JT; +ATIV1TAB10 JT; +CEFD300C JT; +CEPH500C; +CVS500TA35 PO; +ENOX100I3 SC; +FOSF3PAC2 PO; +HYDR1LIQ JT; +NARC1SPR NARES; +OXYC20TA2 JT
[2023-07-23 14:35] VITALS: TEMP 98.6; O2SAT 99
[2023-07-23 15:30] VITALS: BP 150/85
== END ==
LOC: M IRPRO 14:20
PROVIDERS: ATTEND Family Medicine
DX: T82.594A Other mechanical complication of infusion catheter, initial encounter (principal); Z98.890 Other specified postprocedural states

== ENCOUNTER → 2023-07-30 | Outpatient (REF) | payer BC, OTHER ==
[~2023-07-30] MED LIST changes: -CVS500TA35 PO; -HYDR1LIQ JT
[2023-07-30 12:17] LABS: BASO % 0.6 % (0.0-1.0); EOS # 0.3 10^3/uL (0.0-0.5); EOS % 5.3 % (0.0-3.0); HEMATOCRIT 36.5 % (36.0-47.0); HEMOGLOBIN 11.6 g/dl (12.0-15.5); LYMPH # 1.8 10^3/uL (1.5-5.0); LYMPH % 34.4 % (24.0-44.0); MEAN CORPUSCULAR HEMOGLOBIN 27.8 pg (27.0-33.0); MEAN CORPUSCULAR HGB CONC 31.8 g/dl (32.0-36.5); MEAN CORPUSCULAR VOLUME 87.3 fl (80.0-96.0); MONO # 0.4 10^3/uL (0.0-0.8); MONO % 8.2 % (2.0-8.0); NEUTROPHILS # 2.6 10^3/uL (1.5-8.5); NEUTROPHILS % 51.3 % (36.0-66.0); PLATELET COUNT, AUTOMATED 292 10^3/uL (150-450); RED BLOOD COUNT 4.18 10^6/uL (4.00-5.40); WHITE BLOOD COUNT 5.1 10^3/uL (4.0-10.0)
[2023-07-30 13:25] LABS: ALBUMIN 3.9 G/DL (3.2-5.2); ALKALINE PHOSPHATASE 130 U/L (46-116); ALT/SGPT 43 U/L (7.0-40); AST/SGOT 43 U/L (<34); BILIRUBIN,TOTAL 0.5 MG/DL (0.3-1.2); BLOOD UREA NITROGEN 6 MG/DL (9-23); CALCIUM LEVEL 9.4 MG/DL (8.5-10.1); CARBON DIOXIDE LEVEL 27 MMOL/L (20-31); CHLORIDE LEVEL 106 MMOL/L (98-107); CHOLESTEROL LEVEL 203 MG/DL (<200); CHOLESTEROL RISK RATIO 5.73 (<5); CREATININE FOR GFR 0.58 MG/DL (0.55-1.30); GLOMERULAR FILTRATION RATE > 60.0 (>58); GLUCOSE, FASTING 110 MG/DL (60-100); HDL CHOLESTEROL 35.4 MG/DL (>40); LDL CHOLESTEROL 123.8 MG/DL (<100); NON-HDL-C 167.6 MG/DL; PHOSPHORUS LEVEL 4.3 MG/DL (2.5-4.9); SODIUM LEVEL 143 MMOL/L (136-145); TOTAL PROTEIN 6.6 G/DL (5.7-8.2); TRIGLYCERIDES LEVEL 219 MG/DL (<150)
== END ==
LOC: M LAB REF 11:38
PROVIDERS: ATTEND Internal Medicine Gastroenterology
DX: K31.84 Gastroparesis (principal); Z98.84 Bariatric surgery status; D64.9 Anemia, unspecified

== ENCOUNTER → 2023-07-30 | Outpatient (CLI) | payer BC, OTHER ==
[~2023-07-30] VITALS: Ht 170.2 cm; Wt 87.0 kg
[2023-07-30 07:59] VITALS: BP 118/78; O2SAT 94
[2023-07-30 12:55] LABS: APPEARANCE, URINE CLOUDY (CLEAR); BACTERIA, URINE AUTO 3+ (NEGATIVE); BILIRUBIN, URINE AUTO NEGATIVE (NEGATIVE); BLOOD, URINE BLOOD 3+ (NEGATIVE); COLOR, URINE AMBER (YELLOW); GLUCOSE, URINE (UA) AUTO NEGATIVE (NEGATIVE); KETONE, URINE AUTO TRACE mg/dL (NEGATIVE); LEUKOCYTE ESTERASE, URINE AUTO 1+ (NEGATIVE); MUCUS, URINE MODERATE (NEGATIVE); NITRITE, URINE AUTO POSITIVE (NEGATIVE); PROTEIN, URINE AUTO 1+ mg/dL (NEGATIVE); RBC, URINE AUTO TNTC /HPF (0-3); SQUAMOUS EPITHELIAL CELL UR AU 2 /HPF (0-6); WBC, URINE AUTO 13 /HPF (0-3)
== END ==
LOC: M PAL 07:47
PROVIDERS: ATTEND Nurse Practitioner Adult Health
DX: G40.909 Epilepsy, unspecified, not intractable, without status epilepticus (principal); K31.84 Gastroparesis; K91.2 Postsurgical malabsorption, not elsewhere classified; N10 Acute pyelonephritis; B96.20 Unspecified Escherichia coli [E. coli] as the cause of diseases classified elsewhere; R10.9 Unspecified abdominal pain; R11.2 Nausea with vomiting, unspecified; Z51.5 Encounter for palliative care; Z86.72 Personal history of thrombophlebitis; Z79.891 Long term (current) use of opiate analgesic; Z79.899 Other long term (current) drug therapy; Z88.1 Allergy status to other antibiotic agents; Z88.2 Allergy status to sulfonamides; Z88.5 Allergy status to narcotic agent; Z88.6 Allergy status to analgesic agent; Z91.018 Allergy to other foods; Z93.1 Gastrostomy status; Z98.84 Bariatric surgery status
CPT/HCPCS: 81001; 87088; 87186; G0463

== ENCOUNTER → 2023-08-02 | Outpatient (REF) | payer OTHER, BC ==
[2023-08-02 10:15] LABS: BASO % 0.3 % (0.0-1.0); EOS # 0.5 10^3/uL (0.0-0.5); HEMATOCRIT 32.4 % (36.0-47.0); HEMOGLOBIN 10.2 g/dl (12.0-15.5); LYMPH # 1.7 10^3/uL (1.5-5.0); LYMPH % 28.6 % (24.0-44.0); MEAN CORPUSCULAR HEMOGLOBIN 27.8 pg (27.0-33.0); MEAN CORPUSCULAR HGB CONC 31.5 g/dl (32.0-36.5); MEAN CORPUSCULAR VOLUME 88.3 fl (80.0-96.0); MONO # 0.6 10^3/uL (0.0-0.8); MONO % 10.2 % (2.0-8.0); NEUTROPHILS # 3.1 10^3/uL (1.5-8.5); NEUTROPHILS % 52.6 % (36.0-66.0); PLATELET COUNT, AUTOMATED 234 10^3/uL (150-450); RED BLOOD COUNT 3.67 10^6/uL (4.00-5.40); WHITE BLOOD COUNT 5.9 10^3/uL (4.0-10.0)
[2023-08-02 10:45] LABS: PERCENT SATURATION 17.8 % (13.2-45.0)
[2023-08-02 10:48] LABS: FERRITIN 29.2 NG/ML (7.3-270.7)
== END ==
LOC: M LAB REF 09:49
PROVIDERS: ATTEND Family Medicine
DX: D50.9 Iron deficiency anemia, unspecified (principal)

== ENCOUNTER 2023-08-12 08:34 | Emergency (ER) | payer BC, OTHER ==
[~2023-08-12] VITALS: Ht 170.2 cm; Wt 86.2 kg
[2023-08-12] MEDS ORDERED: diphenhydrAMINE 50MG/ML VIAL IV ONE (09:40)
[2023-08-12] MEDS ORDERED: cefTRIAXone SOD 1 GM in D5W MINI-BAG PLUS 50 ML IV ONE (09:40)
[2023-08-12] MEDS ORDERED: MORPHINE 2 MG/ML 1ML VIAL IV PRN (09:40)
[2023-08-12] MEDS ORDERED: VANCOMYCIN HCL 1,750 MG in IV FLUID PLACE HOLDER 1 EA IV ONE (09:40)
[2023-08-12] MEDS ORDERED: ONDANSETRON 4MG 2ML VIAL IV ONE (09:40)
[2023-08-12] MEDS ORDERED: VANCOMYCIN HCL 1,000 MG, VIAL MATE ADAPTER 1 EACH in D5W 250 ML IV ONE (10:00)
[2023-08-12] MEDS ORDERED: VANCOMYCIN HCL 750 MG, VIAL MATE ADAPTER 1 EACH in D5W 250 ML IV ONE (10:00)
[2023-08-12 10:44] LABS: BASO % 0.6 % (0.0-1.0); EOS # 0.2 10^3/uL (0.0-0.5); EOS % 2.3 % (0.0-3.0); HEMATOCRIT 36.9 % (36.0-47.0); HEMOGLOBIN 12.1 g/dl (12.0-15.5); LYMPH # 1.3 10^3/uL (1.5-5.0); LYMPH % 18.7 % (24.0-44.0); MEAN CORPUSCULAR HEMOGLOBIN 28.1 pg (27.0-33.0); MEAN CORPUSCULAR HGB CONC 32.8 g/dl (32.0-36.5); MEAN CORPUSCULAR VOLUME 85.6 fl (80.0-96.0); MONO # 0.6 10^3/uL (0.0-0.8); MONO % 9.1 % (2.0-8.0); NEUTROPHILS # 4.7 10^3/uL (1.5-8.5); PLATELET COUNT, AUTOMATED 258 10^3/uL (150-450); RED BLOOD COUNT 4.31 10^6/uL (4.00-5.40); WHITE BLOOD COUNT 6.8 10^3/uL (4.0-10.0)
[2023-08-12 11:08] LABS: RSV AMPLIFICATION NEGATIVE (NEGATIVE)
[2023-08-12 11:37] VITALS: BP 117/56; TEMP 97.6; O2SAT 98
[2023-08-12 11:40] LABS: APPEARANCE, URINE CLEAR (CLEAR); BACTERIA, URINE AUTO 1+ (NEGATIVE); BILIRUBIN, URINE AUTO NEGATIVE (NEGATIVE); BLOOD, URINE BLOOD NEGATIVE (NEGATIVE); COLOR, URINE YELLOW (YELLOW); GLUCOSE, URINE (UA) AUTO NEGATIVE (NEGATIVE); KETONE, URINE AUTO NEGATIVE (NEGATIVE); LEUKOCYTE ESTERASE, URINE AUTO 1+ (NEGATIVE); NITRITE, URINE AUTO NEGATIVE (NEGATIVE); PROTEIN, URINE AUTO NEGATIVE (NEGATIVE); RBC, URINE AUTO 0 /HPF (0-3); SPECIFIC GRAVITY URINE AUTO 1.008 (1.002-1.035); SQUAMOUS EPITHELIAL CELL UR AU 11 /HPF (0-6); UROBILINOGEN, URINE AUTO 0.2 mg/dL (0.0-2.0); WBC, URINE AUTO 1 /HPF (0-3)
[2023-08-12] MEDS ORDERED: DALBAVANCIN 1,500 MG in D5W 250 ML IV ONE (12:00)
[2023-08-12] MEDS ORDERED: ACETAMINOPHEN 500 MG TAB GT ONE (12:00)
[2023-08-12] MEDS ORDERED: HYDROMORPHONE HCL 0.5 MG/ 0.5 ML SYRINGE IV PRN (12:15)
[2023-08-12] MEDS ORDERED: LIDOCAINE 1% MDV 20ML VIAL IM ONE (12:15)
[2023-08-12] MEDS ORDERED: HYDR1LIQ JT (13:46)
[2023-08-12 22:21] LABS: ALBUMIN 3.9 G/DL (3.2-5.2); ALKALINE PHOSPHATASE 216 U/L (46-116); ALT/SGPT 68 U/L (7.0-40); AST/SGOT 93 U/L (<34); BILIRUBIN,DIRECT 0.3 MG/DL (<0.4); BILIRUBIN,TOTAL 0.7 MG/DL (0.3-1.2); BLOOD UREA NITROGEN 8 MG/DL (9-23); CALCIUM LEVEL 9.6 MG/DL (8.5-10.1); CARBON DIOXIDE LEVEL 28 MMOL/L (20-31); CHLORIDE LEVEL 100 MMOL/L (98-107); CREATININE FOR GFR 0.54 MG/DL (0.55-1.30); GLOMERULAR FILTRATION RATE > 60.0 (>58); GLUCOSE, FASTING 124 MG/DL (60-100); POTASSIUM SERUM 4.1 MMOL/L (3.5-5.1); SODIUM LEVEL 136 MMOL/L (136-145); TOTAL PROTEIN 6.9 G/DL (5.7-8.2)
[2023-08-12 22:33] LABS: PROCALCITONIN 0.26 ng/ml
[2023-08-13] MEDS ORDERED: CVS500TA35 PO (07:50)
[2023-08-14] MEDS ORDERED: ATIV1TAB10 JT (07:03)
[2023-08-14] MEDS ORDERED: OXYC20TA2 PEG (07:03)
== END 2023-08-12 15:46 | disposition home or self-care (01) ==
LOC: M ED 08:34
DX: L03.312 Cellulitis of back [any part except buttock and flank] (principal); B96.4 Proteus (mirabilis) (morganii) as the cause of diseases classified elsewhere; R00.0 Tachycardia, unspecified; D68.59 Other primary thrombophilia; K21.9 Gastro-esophageal reflux disease without esophagitis; F44.5 Conversion disorder with seizures or convulsions; Z86.718 Personal history of other venous thrombosis and embolism; R10.9 Unspecified abdominal pain; G89.29 Other chronic pain; F41.9 Anxiety disorder, unspecified; F11.20 Opioid dependence, uncomplicated; Z98.84 Bariatric surgery status; Z90.49 Acquired absence of other specified parts of digestive tract; Z86.14 Personal history of Methicillin resistant Staphylococcus aureus infection; Z88.8 Allergy status to other drugs, medicaments and biological substances; Z88.2 Allergy status to sulfonamides; Z88.1 Allergy status to other antibiotic agents; Z88.5 Allergy status to narcotic agent; Z91.018 Allergy to other foods; Z79.899 Other long term (current) drug therapy
CPT/HCPCS: 10060; 80047; 80048; 80076; 81001; 83605; 84145; 85025; 86140; 87040; 87077; 87186; 87631; 93005; 96365; 96367; 96375; 96376; 99283; J0696; J0875; J1170; J1200; J2405; J3370

== ENCOUNTER 2023-08-13 07:31 | Emergency (ER) | payer BC, OTHER ==
[~2023-08-13] VITALS: Ht 170.2 cm; Wt 86.4 kg
[~2023-08-13 07:31] MED LIST changes: +HYDR1LIQ JT
[2023-08-13] MEDS ORDERED: CVS500TA35 PO (07:50)
[2023-08-13] MEDS ORDERED: ONDANSETRON 4MG 2ML VIAL IV ONE (08:40)
[2023-08-13] MEDS ORDERED: diphenhydrAMINE 50MG/ML VIAL IV ONE (09:05)
[2023-08-13 09:17] LABS: BASO % 0.6 % (0.0-1.0); EOS # 0.4 10^3/uL (0.0-0.5); HEMATOCRIT 36.7 % (36.0-47.0); HEMOGLOBIN 11.9 g/dl (12.0-15.5); LYMPH # 1.2 10^3/uL (1.5-5.0); LYMPH % 16.6 % (24.0-44.0); MEAN CORPUSCULAR HEMOGLOBIN 27.8 pg (27.0-33.0); MEAN CORPUSCULAR HGB CONC 32.4 g/dl (32.0-36.5); MEAN CORPUSCULAR VOLUME 85.7 fl (80.0-96.0); MONO # 0.7 10^3/uL (0.0-0.8); MONO % 9.9 % (2.0-8.0); NEUTROPHILS # 4.7 10^3/uL (1.5-8.5); NEUTROPHILS % 67.6 % (36.0-66.0); PLATELET COUNT, AUTOMATED 268 10^3/uL (150-450); RED BLOOD COUNT 4.28 10^6/uL (4.00-5.40)
[2023-08-13 09:47] LABS: CREATININE FOR GFR 1.18 MG/DL (0.55-1.30); POTASSIUM SERUM 4.2 MMOL/L (3.5-5.1)
[2023-08-13] MEDS: SODIUM CHLORIDE 0.9% INJ 10 ML SYR IV PRN ×2 (10:08→13:38)
[2023-08-13] MEDS ORDERED: NS 1,000 ML IV ONE (11:25)
[2023-08-13] MEDS ORDERED: ALBUTEROL 90 MCG/ACT 8GM HFA INHALER INH ONE (11:25)
[2023-08-13] MEDS ORDERED: ISOVUE-370 76% 100ML VIAL As Ordered ONE (11:49)
[2023-08-13] MEDS ORDERED: oxyCODONE 5MG TAB PO ONE (12:10)
[2023-08-13] MEDS ORDERED: cefTRIAXone SOD 1 GM in D5W MINI-BAG PLUS 50 ML IV ONE (13:00)
[2023-08-13 13:50] VITALS: BP 110/60; TEMP 97.6; O2SAT 98
[2023-08-14] MEDS ORDERED: ATIV1TAB10 JT (07:03)
[2023-08-14] MEDS ORDERED: OXYC20TA2 PEG (07:03)
== END 2023-08-13 13:50 | disposition home or self-care (01) ==
LOC: M ED 07:31
DX: L03.313 Cellulitis of chest wall (principal); R79.9 Abnormal finding of blood chemistry, unspecified; Z79.899 Other long term (current) drug therapy; Z88.8 Allergy status to other drugs, medicaments and biological substances; Z88.6 Allergy status to analgesic agent; Z88.2 Allergy status to sulfonamides; Z88.5 Allergy status to narcotic agent; Z91.018 Allergy to other foods
CPT/HCPCS: 76604; 80048; 83605; 85025; 87040; 96374; 96375; 99284; J0696; J1200; J2405

== ENCOUNTER 2023-08-15 11:28 | Inpatient (IN) | payer BC, OTHER ==
[~2023-08-15] VITALS: Ht 152.4 cm; Wt 93.0 kg
[~2023-08-15 11:28] MED LIST changes: +CVS500TA35 PO
[2023-08-15 14:20] VITALS: BP 103/68; TEMP 97.3; O2SAT 97
[2023-08-15 14:55] LABS: HEMATOCRIT 35.6 % (36.0-47.0); HEMOGLOBIN 11.1 g/dl (12.0-15.5); MEAN CORPUSCULAR HEMOGLOBIN 27.1 pg (27.0-33.0); MEAN CORPUSCULAR HGB CONC 31.2 g/dl (32.0-36.5); MEAN CORPUSCULAR VOLUME 86.8 fl (80.0-96.0); PLATELET COUNT, AUTOMATED 308 10^3/uL (150-450); WHITE BLOOD COUNT 7.2 10^3/uL (4.0-10.0)
[2023-08-15] MEDS ORDERED: ONDANSETRON 4MG TAB PO ONE (15:00)
[2023-08-15] MEDS ORDERED: ACETAMINOPHEN 500 MG TAB PO PRN (15:10)
[2023-08-15] MEDS ORDERED: oxyCODONE 5MG TAB PO PRN (15:10)
[2023-08-15 15:26] LABS: ALBUMIN 3.6 G/DL (3.2-5.2); ALKALINE PHOSPHATASE 223 U/L (46-116); ALT/SGPT 54 U/L (7.0-40); AST/SGOT 48 U/L (<34); BILIRUBIN,TOTAL 0.5 MG/DL (0.3-1.2); BLOOD UREA NITROGEN 6 MG/DL (9-23); CALCIUM LEVEL 9.1 MG/DL (8.5-10.1); CARBON DIOXIDE LEVEL 30 MMOL/L (20-31); CHLORIDE LEVEL 101 MMOL/L (98-107); GLOMERULAR FILTRATION RATE > 60.0 (>58); GLUCOSE, FASTING 95 MG/DL (60-100); POTASSIUM SERUM 3.9 MMOL/L (3.5-5.1); SODIUM LEVEL 139 MMOL/L (136-145); TOTAL PROTEIN 6.7 G/DL (5.7-8.2)
[2023-08-15 16:00] VITALS: BP 114/61; TEMP 97; O2SAT 100
[2023-08-15] MEDS: ONDANSETRON 4MG 2ML VIAL IV PRN ×2 (16:59→21:51)
[2023-08-15] MEDS: MORPHINE 2 MG/ML 1ML VIAL IV PRN ×2 (16:59→21:07)
[2023-08-15] MEDS ORDERED: MED REC IN PROGRESS XX SCH (17:00)
[2023-08-15] MEDS: cefTRIAXone SOD 2 GM in D5W MINI-BAG PLUS 50 ML IV SCH (17:00)
[2023-08-15] MEDS: diphenhydrAMINE 50MG/ML VIAL IV PRN ×2 (17:04→21:55)
[2023-08-15] MEDS ORDERED: [UNRECOGNIZED DRUG - CODE] IV (17:44)
[2023-08-15] MEDS ORDERED: HYDR1LIQ JT (17:49)
[2023-08-15] MEDS ORDERED: ATIV1TAB10 JT (17:52)
[2023-08-15] MEDS ORDERED: OXYC20TA2 JT (17:56)
[2023-08-15] MEDS ORDERED: NARC1SPR NARES (17:58)
[2023-08-15] MEDS ORDERED: HOME MED LIST COMPLETE! XX SCH (18:00)
[2023-08-15] MEDS ORDERED: cefTRIAXone SOD 2 GM in D5W MINI-BAG PLUS 50 ML IV SCH (18:00)
[2023-08-15] MEDS ORDERED: LORazepam 0.5 MG TAB JT PRN (18:25)
[2023-08-15 20:00] VITALS: BP 100/54; TEMP 97.7; O2SAT 97
[2023-08-15] MEDS ORDERED: LEVETIRACETAM 500 MG/5 ML IV SCH (21:00)
[2023-08-15] MEDS: PANTOPRAZOLE 40MG VIAL IV SCH (21:06)
[2023-08-15] MEDS: zolPIDEM TARTRATE 5 MG TAB JT SCH (21:06)
[2023-08-15] MEDS: levETIRAcetam INJection 1,000 MG in D5W 100 ML IV SCH (21:07)
[2023-08-16 04:00] VITALS: BP 90/70; TEMP 97.3; O2SAT 96
[2023-08-16] MEDS: diphenhydrAMINE 50MG/ML VIAL IV PRN ×3 (06:05→19:44)
[2023-08-16] MEDS: ONDANSETRON 4MG 2ML VIAL IV PRN ×3 (06:05→19:45)
[2023-08-16] MEDS: MORPHINE 2 MG/ML 1ML VIAL IV PRN ×4 (06:06→19:45)
[2023-08-16 06:27] LABS: HEMOGLOBIN 11.1 g/dl (12.0-15.5); MEAN CORPUSCULAR HEMOGLOBIN 27.5 pg (27.0-33.0); MEAN CORPUSCULAR HGB CONC 31.7 g/dl (32.0-36.5); MEAN CORPUSCULAR VOLUME 86.8 fl (80.0-96.0); PLATELET COUNT, AUTOMATED 309 10^3/uL (150-450); RED BLOOD COUNT 4.03 10^6/uL (4.00-5.40); WHITE BLOOD COUNT 6.2 10^3/uL (4.0-10.0)
[2023-08-16 06:53] LABS: BLOOD UREA NITROGEN 6 MG/DL (9-23); CALCIUM LEVEL 9.1 MG/DL (8.5-10.1); CARBON DIOXIDE LEVEL 29 MMOL/L (20-31); CHLORIDE LEVEL 104 MMOL/L (98-107); CREATININE FOR GFR 0.62 MG/DL (0.55-1.30); GLOMERULAR FILTRATION RATE > 60.0 (>58); GLUCOSE, FASTING 135 MG/DL (60-100); POTASSIUM SERUM 4.4 MMOL/L (3.5-5.1); SODIUM LEVEL 141 MMOL/L (136-145)
[2023-08-16 08:00] VITALS: BP 114/59; TEMP 97.3; O2SAT 97
[2023-08-16] MEDS ORDERED: ENOXAPARIN 40MG/0.4ML SYRINGE (J1650 PER 10MG) SC SCH (09:00)
[2023-08-16] MEDS: MIDODRINE 5 MG TAB JT SCH ×3 (09:22→16:35)
[2023-08-16] MEDS: PANTOPRAZOLE 40MG VIAL IV SCH ×2 (09:22→20:50)
[2023-08-16] MEDS: ROSUVASTATIN 10 MG TAB (CRESTOR) JT SCH (09:22)
[2023-08-16] MEDS: levETIRAcetam INJection 1,000 MG in D5W 100 ML IV SCH ×2 (09:23→20:50)
[2023-08-16 12:00] VITALS: BP 99/64; TEMP 97.3; O2SAT 96
[2023-08-16 16:00] VITALS: BP 84/42; TEMP 97.1; O2SAT 97
[2023-08-16 17:03] VITALS: BP 105/61; TEMP 97.7; O2SAT 98
[2023-08-16] MEDS ORDERED: [UNRECOGNIZED DRUG - OTHER] IV SCH (18:00)
[2023-08-16] MEDS: cefTRIAXone SOD 2 GM in D5W MINI-BAG PLUS 50 ML IV SCH (18:24)
[2023-08-16] MEDS ORDERED: AMINO AC/ELECTROLYTE/DEX/CALC 2,566 ML IV SCH (20:00)
[2023-08-16] MEDS: MUPIROCIN 2% OINT 22 GM TUBE TOP SCH (20:50)
[2023-08-16] MEDS: zolPIDEM TARTRATE 5 MG TAB JT SCH (21:00)
[2023-08-16 21:40] VITALS: BP 103/59; TEMP 97.5; O2SAT 98
[2023-08-16] MEDS ORDERED: ONDANSETRON 4MG 2ML VIAL As Ordered ONE (23:08)
[2023-08-16] MEDS ORDERED: propofoL 200 MG/20 ML VIAL As Ordered ONE (23:08)
[2023-08-16] MEDS ORDERED: fentaNYL 100 MCG/2 ML INJECTION As Ordered ONE (23:08)
[2023-08-16] MEDS ORDERED: LIDOCAINE 2% 100MG/5ML SDV (FOR ANES.) As Ordered ONE (23:08)
[2023-08-16] MEDS ORDERED: KETOROLAC 60MG 2ML VIAL As Ordered ONE (23:08)
[2023-08-16] MEDS ORDERED: MIDAZOLAM INJ 2MG/2ML VIAL As Ordered ONE (23:08)
[2023-08-16] MEDS ORDERED: LIDOCAINE 1% MDV 20ML VIAL As Ordered ONE (23:49)
[2023-08-16] MEDS ORDERED: KETAMINE HCL 200MG/20ML VIAL As Ordered ONE (23:50)
[2023-08-16] MEDS ORDERED: ePHEDrine SULFATE 25 MG/5 ML(5MG/ML) SYRINGE As Ordered ONE (23:50)
[2023-08-17] MEDS ORDERED: oxyCODONE 5MG TAB PO PRN (00:20)
[2023-08-17] MEDS ORDERED: ONDANSETRON 4MG 2ML VIAL IV PRN (00:20)
[2023-08-17] MEDS ORDERED: LR 1,000 ML IV SCH (00:20)
[2023-08-17] MEDS ORDERED: fentaNYL 100 MCG/2 ML INJECTION IV PRN (00:20)
[2023-08-17] MEDS: HYDROMORPHONE HCL 0.5 MG/ 0.5 ML SYRINGE IV PRN ×2 (00:27→00:32)
[2023-08-17 00:45] VITALS: BP 96/56; TEMP 97.5; O2SAT 99
[2023-08-17] MEDS: diphenhydrAMINE 50MG/ML VIAL IV PRN ×3 (01:20→18:21)
[2023-08-17] MEDS: MORPHINE 2 MG/ML 1ML VIAL IV PRN (04:42)
[2023-08-17 06:00] VITALS: BP 103/52; TEMP 97.2; O2SAT 98
[2023-08-17] MEDS: ONDANSETRON 4MG 2ML VIAL IV PRN ×3 (06:12→18:20)
[2023-08-17] MEDS ORDERED: [UNRECOGNIZED DRUG - NUTRITION] IV SCH (09:00)
[2023-08-17] MEDS: ENOXAPARIN 100MG/1ML SYRINGE (J1650 PER 10MG) SC SCH (09:27)
[2023-08-17] MEDS: MIDODRINE 5 MG TAB JT SCH ×3 (09:27→16:26)
[2023-08-17] MEDS: PANTOPRAZOLE 40MG VIAL IV SCH ×2 (09:27→21:26)
[2023-08-17] MEDS: ROSUVASTATIN 10 MG TAB (CRESTOR) JT SCH (09:27)
[2023-08-17] MEDS: MORPHINE 4 MG/ML 1ML VIAL IV PRN ×4 (09:28→22:28)
[2023-08-17] MEDS: MUPIROCIN 2% OINT 22 GM TUBE TOP SCH ×2 (09:29→21:27)
[2023-08-17] MEDS: levETIRAcetam INJection 1,000 MG in D5W 100 ML IV SCH ×2 (10:59→21:26)
[2023-08-17 13:54] VITALS: BP 118/73; TEMP 97.3; O2SAT 97
[2023-08-17] MEDS: cefTRIAXone SOD 2 GM in D5W MINI-BAG PLUS 50 ML IV SCH (18:20)
[2023-08-17] MEDS: zolPIDEM TARTRATE 5 MG TAB JT SCH (21:26)
[2023-08-17 21:37] VITALS: BP 117/73; TEMP 97.7; O2SAT 98
[2023-08-18] MEDS: ONDANSETRON 4MG 2ML VIAL IV PRN ×4 (01:10→21:25)
[2023-08-18] MEDS: diphenhydrAMINE 50MG/ML VIAL IV PRN ×4 (01:10→21:25)
[2023-08-18] MEDS: MORPHINE 4 MG/ML 1ML VIAL IV PRN ×5 (02:59→21:26)
[2023-08-18 06:00] VITALS: BP 93/63; TEMP 97.5; O2SAT 97
[2023-08-18] MEDS: levETIRAcetam INJection 1,000 MG in D5W 100 ML IV SCH ×2 (08:16→21:25)
[2023-08-18] MEDS: ROSUVASTATIN 10 MG TAB (CRESTOR) JT SCH (08:16)
[2023-08-18] MEDS: MIDODRINE 5 MG TAB JT SCH ×3 (08:16→17:03)
[2023-08-18] MEDS: PANTOPRAZOLE 40MG VIAL IV SCH ×2 (08:16→21:25)
[2023-08-18] MEDS: ENOXAPARIN 100MG/1ML SYRINGE (J1650 PER 10MG) SC SCH (08:17)
[2023-08-18] MEDS: MUPIROCIN 2% OINT 22 GM TUBE TOP SCH ×2 (08:18→21:27)
[2023-08-18 12:01] LABS: HEMATOCRIT 32.9 % (36.0-47.0); HEMOGLOBIN 10.3 g/dl (12.0-15.5); MEAN CORPUSCULAR HEMOGLOBIN 27.2 pg (27.0-33.0); MEAN CORPUSCULAR HGB CONC 31.3 g/dl (32.0-36.5); PLATELET COUNT, AUTOMATED 303 10^3/uL (150-450); RED BLOOD COUNT 3.78 10^6/uL (4.00-5.40); WHITE BLOOD COUNT 4.9 10^3/uL (4.0-10.0)
[2023-08-18 12:43] LABS: ALBUMIN 3.3 G/DL (3.2-5.2); ALKALINE PHOSPHATASE 150 U/L (46-116); ALT/SGPT 31 U/L (7.0-40); AST/SGOT 18 U/L (<34); BILIRUBIN,TOTAL 0.2 MG/DL (0.3-1.2); BLOOD UREA NITROGEN 5 MG/DL (9-23); CARBON DIOXIDE LEVEL 29 MMOL/L (20-31); CHLORIDE LEVEL 109 MMOL/L (98-107); CREATININE FOR GFR 0.77 MG/DL (0.55-1.30); GLOMERULAR FILTRATION RATE > 60.0 (>58); GLUCOSE, FASTING 116 MG/DL (60-100); MAGNESIUM LEVEL 2.1 MG/DL (1.8-2.4); PHOSPHORUS LEVEL 4.4 MG/DL (2.5-4.9); POTASSIUM SERUM 3.9 MMOL/L (3.5-5.1); SODIUM LEVEL 146 MMOL/L (136-145); TOTAL PROTEIN 6.2 G/DL (5.7-8.2)
[2023-08-18 14:00] VITALS: BP 97/53; TEMP 97.7; O2SAT 98
[2023-08-18] MEDS: cefTRIAXone SOD 2 GM in D5W MINI-BAG PLUS 50 ML IV SCH (17:03)
[2023-08-18] MEDS ORDERED: AMINO AC/ELECTROLYTE/DEX/CALC 2,566 ML IV SCH (20:00)
[2023-08-18 21:07] VITALS: BP 98/54; TEMP 97.5; O2SAT 98
[2023-08-18] MEDS: zolPIDEM TARTRATE 5 MG TAB JT SCH (21:24)
[2023-08-19] MEDS: MORPHINE 4 MG/ML 1ML VIAL IV PRN ×4 (01:56→16:44)
[2023-08-19] MEDS: ONDANSETRON 4MG 2ML VIAL IV PRN ×3 (04:17→16:42)
[2023-08-19] MEDS: diphenhydrAMINE 50MG/ML VIAL IV PRN ×3 (04:17→16:49)
[2023-08-19] MEDS: INSULIN LISPRO (NovoLOG) PER UNIT SC SCH ×4 (06:00→18:00)
[2023-08-19 06:01] VITALS: BP 90/44; TEMP 97.3; O2SAT 95
[2023-08-19] MEDS: PANTOPRAZOLE 40MG VIAL IV SCH (08:46)
[2023-08-19] MEDS: ENOXAPARIN 100MG/1ML SYRINGE (J1650 PER 10MG) SC SCH (08:46)
[2023-08-19] MEDS: MIDODRINE 5 MG TAB JT SCH ×3 (08:47→16:44)
[2023-08-19] MEDS: ROSUVASTATIN 10 MG TAB (CRESTOR) JT SCH (08:47)
[2023-08-19] MEDS ORDERED: MICONAZOLE 2 % POWDER (DESENEX) TOP SCH (09:00)
[2023-08-19] MEDS: levETIRAcetam INJection 1,000 MG in D5W 100 ML IV SCH (09:41)
[2023-08-19] MEDS: MUPIROCIN 2% OINT 22 GM TUBE TOP SCH (09:44)
[2023-08-19 13:10] LABS: HEMATOCRIT 35.5 % (36.0-47.0); HEMOGLOBIN 11.2 g/dl (12.0-15.5); MEAN CORPUSCULAR HEMOGLOBIN 27.5 pg (27.0-33.0); MEAN CORPUSCULAR HGB CONC 31.5 g/dl (32.0-36.5); PLATELET COUNT, AUTOMATED 314 10^3/uL (150-450); RED BLOOD COUNT 4.08 10^6/uL (4.00-5.40); WHITE BLOOD COUNT 5.1 10^3/uL (4.0-10.0)
[2023-08-19 13:32] LABS: ALBUMIN 3.4 G/DL (3.2-5.2); ALKALINE PHOSPHATASE 148 U/L (46-116); ALT/SGPT 27 U/L (7.0-40); AST/SGOT 14 U/L (<34); BILIRUBIN,TOTAL 0.3 MG/DL (0.3-1.2); BLOOD UREA NITROGEN 10 MG/DL (9-23); CALCIUM LEVEL 9.2 MG/DL (8.5-10.1); CARBON DIOXIDE LEVEL 25 MMOL/L (20-31); CHLORIDE LEVEL 105 MMOL/L (98-107); CREATININE FOR GFR 0.69 MG/DL (0.55-1.30); GLOMERULAR FILTRATION RATE > 60.0 (>58); GLUCOSE, FASTING 187 MG/DL (60-100); POTASSIUM SERUM 4.1 MMOL/L (3.5-5.1); SODIUM LEVEL 142 MMOL/L (136-145); TOTAL PROTEIN 6.2 G/DL (5.7-8.2)
[2023-08-19 14:00] VITALS: BP 82/41; TEMP 97.5; O2SAT 96
[2023-08-19 16:00] VITALS: BP 120/68
[2023-08-19] MEDS ORDERED: HIBI4LIQ EX (17:51)
[2023-08-19] MEDS ORDERED: MUPI2OI TOP (17:51)
[2023-08-19] MEDS ORDERED: MICR2POW TOP (17:51)
[2023-08-19] MEDS: cefTRIAXone SOD 2 GM in D5W MINI-BAG PLUS 50 ML IV SCH (18:36)
== END 2023-08-19 19:20 | disposition home or self-care (01) | DRG 383 ==
LOC: EEVIPCON 13:37 → M PCU 13:37 → M MS5PR 08-16 16:55
PROVIDERS: ADMIT Internal Medicine; ATTEND Internal Medicine
PROC: 0W9K0ZZ Drainage of Upper Back, Open Approach (ICD-10-PCS; principal; 2023-08-17)
DX: L03.312 Cellulitis of back [any part except buttock and flank] (principal); K90.829 Short bowel syndrome, unspecified; K31.84 Gastroparesis; K21.9 Gastro-esophageal reflux disease without esophagitis; M96.1 Postlaminectomy syndrome, not elsewhere classified; G89.29 Other chronic pain; F32.A Depression, unspecified; D50.9 Iron deficiency anemia, unspecified; Z93.4 Other artificial openings of gastrointestinal tract status; K90.0 Celiac disease; E78.2 Mixed hyperlipidemia; E16.0 Drug-induced hypoglycemia without coma; L30.4 Erythema intertrigo; G40.009 Localization-related (focal) (partial) idiopathic epilepsy and epileptic syndromes with seizures of localized onset, not intractable, without status epilepticus; D68.59 Other primary thrombophilia; Z86.718 Personal history of other venous thrombosis and embolism; F11.20 Opioid dependence, uncomplicated; Z86.14 Personal history of Methicillin resistant Staphylococcus aureus infection; Z90.49 Acquired absence of other specified parts of digestive tract; L02.212 Cutaneous abscess of back [any part, except buttock and flank]; Z79.899 Other long term (current) drug therapy; Z88.8 Allergy status to other drugs, medicaments and biological substances; Z88.1 Allergy status to other antibiotic agents; Z88.2 Allergy status to sulfonamides; Z88.5 Allergy status to narcotic agent; Z88.6 Allergy status to analgesic agent; Z91.018 Allergy to other foods

== ENCOUNTER → 2023-09-10 | Outpatient (CLI) | payer BC, OTHER ==
[~2023-09-10] MED LIST changes: +MICR2POW TOP; +[UNRECOGNIZED DRUG - CODE] IV
== END ==
LOC: M PAL 08:00
PROVIDERS: ATTEND Nurse Practitioner Adult Health
DX: K90.829 Short bowel syndrome, unspecified (principal); K31.84 Gastroparesis; G89.29 Other chronic pain; R10.84 Generalized abdominal pain; Z51.5 Encounter for palliative care; G40.009 Localization-related (focal) (partial) idiopathic epilepsy and epileptic syndromes with seizures of localized onset, not intractable, without status epilepticus; R11.2 Nausea with vomiting, unspecified; R53.83 Other fatigue; Z79.891 Long term (current) use of opiate analgesic; Z79.899 Other long term (current) drug therapy; Z86.16 Personal history of COVID-19; Z88.1 Allergy status to other antibiotic agents; Z88.2 Allergy status to sulfonamides; Z88.6 Allergy status to analgesic agent; Z88.8 Allergy status to other drugs, medicaments and biological substances; Z90.710 Acquired absence of both cervix and uterus; Z91.018 Allergy to other foods; Z93.1 Gastrostomy status; Z93.4 Other artificial openings of gastrointestinal tract status; Z98.84 Bariatric surgery status

== ENCOUNTER 2023-09-18 07:07 | Observation (INO) | payer BC, OTHER ==
[~2023-09-18] VITALS: Ht 170.2 cm; Wt 82.4 kg
[2023-09-18] MEDS ORDERED: PANTOPRAZOLE 40MG VIAL IV ONE (07:50)
[2023-09-18] MEDS ORDERED: ONDANSETRON 4MG 2ML VIAL IV ONE ×2 (07:50→19:45)
[2023-09-18] MEDS ORDERED: fentaNYL 100 MCG/2 ML INJECTION IV PRN (07:50)
[2023-09-18] MEDS ORDERED: NS 1,000 ML IV ONE (07:55)
[2023-09-18 08:14] LABS: BASO # 0.1 10^3/uL (0.0-0.2); BASO % 0.7 % (0.0-1.0); EOS # 0.1 10^3/uL (0.0-0.5); EOS % 0.7 % (0.0-3.0); HEMATOCRIT 42.2 % (36.0-47.0); HEMOGLOBIN 13.7 g/dl (12.0-15.5); LYMPH % 13.9 % (24.0-44.0); MEAN CORPUSCULAR HEMOGLOBIN 27.7 pg (27.0-33.0); MEAN CORPUSCULAR HGB CONC 32.5 g/dl (32.0-36.5); MEAN CORPUSCULAR VOLUME 85.4 fl (80.0-96.0); MONO # 0.4 10^3/uL (0.0-0.8); NEUTROPHILS # 5.7 10^3/uL (1.5-8.5); NEUTROPHILS % 79.4 % (36.0-66.0); PLATELET COUNT, AUTOMATED 369 10^3/uL (150-450); RED BLOOD COUNT 4.94 10^6/uL (4.00-5.40); WHITE BLOOD COUNT 7.1 10^3/uL (4.0-10.0)
[2023-09-18] MEDS: PANTOPRAZOLE SODIUM 40 MG in D5W 50 ML IV SCH ×3 (08:24→18:56)
[2023-09-18 08:26] LABS: INR 1.04; PROTHROMBIN TIME 13.3 SECONDS (12.5-14.5)
[2023-09-18 08:27] LABS: PARTIAL THROMBOPLASTIN TIME 24.4 SECONDS (24.8-34.2)
[2023-09-18 08:44] LABS: BLOOD UREA NITROGEN 13 MG/DL (9-23); CALCIUM LEVEL 10.1 MG/DL (8.5-10.1); CARBON DIOXIDE LEVEL 26 MMOL/L (20-31); CHLORIDE LEVEL 104 MMOL/L (98-107); CREATININE FOR GFR 0.66 MG/DL (0.55-1.30); GLOMERULAR FILTRATION RATE > 60.0 (>58); GLUCOSE, FASTING 179 MG/DL (60-100); SODIUM LEVEL 140 MMOL/L (136-145)
[2023-09-18] MEDS ORDERED: fentaNYL 100 MCG/2 ML INJECTION IV ONE (12:00)
[2023-09-18] MEDS ORDERED: MED REC IN PROGRESS XX SCH (12:10)
[2023-09-18] MEDS ORDERED: HOME MED LIST COMPLETE! XX SCH (12:55)
[2023-09-18] MEDS: HYDROMORPHONE HCL 0.5 MG/ 0.5 ML SYRINGE IV PRN ×3 (13:48→21:45)
[2023-09-18] MEDS ORDERED: LIDOCAINE 2% 100MG/5ML SDV (FOR ANES.) As Ordered ONE (16:19)
[2023-09-18] MEDS ORDERED: propofoL 200 MG/20 ML VIAL As Ordered ONE ×2 (16:19→17:11)
[2023-09-18] MEDS ORDERED: diphenhydrAMINE 50MG/ML VIAL IM STA (17:46)
[2023-09-18] MEDS ORDERED: ONDANSETRON 4MG 2ML VIAL IV STA (17:46)
[2023-09-18] MEDS ORDERED: diphenhydrAMINE 50MG/ML VIAL IV STA (17:51)
[2023-09-18] MEDS ORDERED: diphenhydrAMINE 50MG/ML VIAL IV ONE (19:45)
[2023-09-18 20:22] LABS: BASO # 0.1 10^3/uL (0.0-0.2); BASO % 0.6 % (0.0-1.0); EOS # 0.1 10^3/uL (0.0-0.5); EOS % 0.6 % (0.0-3.0); HEMATOCRIT 39.8 % (36.0-47.0); HEMOGLOBIN 12.9 g/dl (12.0-15.5); LYMPH # 1.5 10^3/uL (1.5-5.0); LYMPH % 14.5 % (24.0-44.0); MEAN CORPUSCULAR HEMOGLOBIN 27.6 pg (27.0-33.0); MEAN CORPUSCULAR HGB CONC 32.4 g/dl (32.0-36.5); MEAN CORPUSCULAR VOLUME 85.2 fl (80.0-96.0); MONO # 0.6 10^3/uL (0.0-0.8); NEUTROPHILS % 77.8 % (36.0-66.0); PLATELET COUNT, AUTOMATED 338 10^3/uL (150-450); RED BLOOD COUNT 4.67 10^6/uL (4.00-5.40); WHITE BLOOD COUNT 10.3 10^3/uL (4.0-10.0)
[2023-09-18 20:28] VITALS: BP 122/98; TEMP 97.8; O2SAT 98
[2023-09-18] MEDS ORDERED: LORazepam 2 MG/ML 1ML VIAL IV STA (20:50)
[2023-09-18] MEDS ORDERED: LACOSAMIDE 10MG/ML 20ML VIAL (VIMPAT) IV STA (20:50)
[2023-09-18] MEDS ORDERED: LEVETIRACETAM 500 MG/5 ML IV SCH (21:00)
[2023-09-18] MEDS: diphenhydrAMINE 50MG/ML VIAL IV SCH (21:00)
[2023-09-18] MEDS: levETIRAcetam INJection 1,000 MG in D5W 100 ML IV SCH (21:27)
[2023-09-18 22:18] VITALS: BP 116/59; TEMP 97.6; O2SAT 100
[2023-09-18] MEDS: SODIUM CHLORIDE 0.9% INJ 10 ML SYR IV PRN (23:28)
[2023-09-19] VITALS: BP 128/61; TEMP 97.7; O2SAT 96
[2023-09-19] MEDS: ONDANSETRON 4MG 2ML VIAL IV PRN ×4 (00:43→21:34)
[2023-09-19] MEDS: SODIUM CHLORIDE 0.9% INJ 10 ML SYR IV PRN (00:48)
[2023-09-19] MEDS: PANTOPRAZOLE SODIUM 40 MG in D5W 50 ML IV SCH ×6 (00:50→23:50)
[2023-09-19] MEDS: HYDROMORPHONE HCL 0.5 MG/ 0.5 ML SYRINGE IV PRN ×5 (02:20→21:33)
[2023-09-19] MEDS ORDERED: BALMEX CREAM 60GM TOP PRN (02:35)
[2023-09-19 04:00] VITALS: BP 132/67; TEMP 97.6; O2SAT 99
[2023-09-19 06:29] LABS: HEMATOCRIT 38.1 % (36.0-47.0); HEMOGLOBIN 12.4 g/dl (12.0-15.5); MEAN CORPUSCULAR HEMOGLOBIN 27.3 pg (27.0-33.0); MEAN CORPUSCULAR HGB CONC 32.5 g/dl (32.0-36.5); MEAN CORPUSCULAR VOLUME 83.9 fl (80.0-96.0); PLATELET COUNT, AUTOMATED 351 10^3/uL (150-450); RED BLOOD COUNT 4.54 10^6/uL (4.00-5.40); WHITE BLOOD COUNT 15.1 10^3/uL (4.0-10.0)
[2023-09-19 06:58] LABS: BLOOD UREA NITROGEN 13 MG/DL (9-23); CALCIUM LEVEL 9.8 MG/DL (8.5-10.1); CARBON DIOXIDE LEVEL 25 MMOL/L (20-31); CHLORIDE LEVEL 103 MMOL/L (98-107); CREATININE FOR GFR 0.62 MG/DL (0.55-1.30); GLOMERULAR FILTRATION RATE > 60.0 (>58); GLUCOSE, FASTING 172 MG/DL (60-100); POTASSIUM SERUM 3.9 MMOL/L (3.5-5.1); SODIUM LEVEL 140 MMOL/L (136-145)
[2023-09-19 08:00] VITALS: BP 129/60; TEMP 98.4; O2SAT 99
[2023-09-19 08:59] LABS: PROCALCITONIN <0.04 ng/ml
[2023-09-19] MEDS: diphenhydrAMINE 50MG/ML VIAL IV SCH ×2 (09:07→21:33)
[2023-09-19] MEDS: levETIRAcetam INJection 1,000 MG in D5W 100 ML IV SCH ×2 (09:07→21:34)
[2023-09-19] MEDS: LACOSAMIDE 10MG/ML 20ML VIAL (VIMPAT) IV SCH ×2 (09:46→21:32)
[2023-09-19] MEDS ORDERED: METOCLOPRAMIDE INJ 10MG/2ML VIAL IV ONE (10:50)
[2023-09-19 12:00] VITALS: BP 128/60; TEMP 99.2; O2SAT 100
[2023-09-19] MEDS ORDERED: LORazepam 0.5 MG TAB JT PRN (13:05)
[2023-09-19] MEDS ORDERED: ISOVUE-370 76% 100ML VIAL As Ordered ONE (13:46)
[2023-09-19] MEDS: ROSUVASTATIN 10 MG TAB (CRESTOR) JT SCH (14:41)
[2023-09-19 16:00] VITALS: BP 106/56; TEMP 98.1; O2SAT 100
[2023-09-19] MEDS: MIDODRINE 5 MG TAB JT SCH ×2 (16:00→18:35)
[2023-09-19 20:00] VITALS: BP 123/72; TEMP 97.5; O2SAT 98
[2023-09-19] MEDS ORDERED: zolPIDEM TARTRATE 5 MG TAB JT SCH (21:00)
[2023-09-19] MEDS: MICONAZOLE 2 % POWDER (DESENEX) TOP SCH (21:32)
[2023-09-19] MEDS: MUPIROCIN 2% OINT 22 GM TUBE TOP SCH (21:33)
[2023-09-20] VITALS: BP 112/59; TEMP 96.4; O2SAT 97
[2023-09-20] MEDS: ONDANSETRON 4MG 2ML VIAL IV PRN ×2 (01:42→06:12)
[2023-09-20] MEDS: HYDROMORPHONE HCL 0.5 MG/ 0.5 ML SYRINGE IV PRN ×3 (01:42→09:30)
[2023-09-20 04:00] VITALS: BP 147/65; TEMP 97.6; O2SAT 97
[2023-09-20 05:25] LABS: BASO % 0.4 % (0.0-1.0); EOS % 0.1 % (0.0-3.0); HEMATOCRIT 37.8 % (36.0-47.0); HEMOGLOBIN 12.4 g/dl (12.0-15.5); LYMPH # 1.9 10^3/uL (1.5-5.0); LYMPH % 17.7 % (24.0-44.0); MEAN CORPUSCULAR HEMOGLOBIN 27.7 pg (27.0-33.0); MEAN CORPUSCULAR HGB CONC 32.8 g/dl (32.0-36.5); MEAN CORPUSCULAR VOLUME 84.4 fl (80.0-96.0); MONO # 0.9 10^3/uL (0.0-0.8); MONO % 8.6 % (2.0-8.0); NEUTROPHILS # 7.7 10^3/uL (1.5-8.5); NEUTROPHILS % 72.9 % (36.0-66.0); PLATELET COUNT, AUTOMATED 356 10^3/uL (150-450); RED BLOOD COUNT 4.48 10^6/uL (4.00-5.40); WHITE BLOOD COUNT 10.5 10^3/uL (4.0-10.0)
[2023-09-20] MEDS: PANTOPRAZOLE SODIUM 40 MG in D5W 50 ML IV SCH ×2 (05:27→09:50)
[2023-09-20 05:32] LABS: BLOOD UREA NITROGEN 14 MG/DL (9-23); CALCIUM LEVEL 10.1 MG/DL (8.5-10.1); CARBON DIOXIDE LEVEL 27 MMOL/L (20-31); CHLORIDE LEVEL 104 MMOL/L (98-107); CREATININE FOR GFR 0.67 MG/DL (0.55-1.30); GLOMERULAR FILTRATION RATE > 60.0 (>58); GLUCOSE, FASTING 203 MG/DL (60-100); POTASSIUM SERUM 4.1 MMOL/L (3.5-5.1); SODIUM LEVEL 140 MMOL/L (136-145)
[2023-09-20 08:03] VITALS: BP 141/65; TEMP 98.2; O2SAT 98
[2023-09-20] MEDS: ROSUVASTATIN 10 MG TAB (CRESTOR) JT SCH (08:33)
[2023-09-20] MEDS: diphenhydrAMINE 50MG/ML VIAL IV SCH (08:33)
[2023-09-20] MEDS: MIDODRINE 5 MG TAB JT SCH (08:34)
[2023-09-20] MEDS ORDERED: DEXA6TAB PO (08:59)
[2023-09-20] MEDS: levETIRAcetam INJection 1,000 MG in D5W 100 ML IV SCH (09:31)
[2023-09-20] MEDS: MUPIROCIN 2% OINT 22 GM TUBE TOP SCH (10:05)
[2023-09-20] MEDS: MICONAZOLE 2 % POWDER (DESENEX) TOP SCH (10:05)
[2023-09-20] MEDS: LACOSAMIDE 10MG/ML 20ML VIAL (VIMPAT) IV SCH (10:05)
== END 2023-09-20 10:57 | disposition home or self-care (01) ==
LOC: M ED 07:07 → M ED INP 12:00 → M PCU 18:19
PROVIDERS: ADMIT Internal Medicine; ATTEND Internal Medicine
DX: K92.2 Gastrointestinal hemorrhage, unspecified (principal); Z93.1 Gastrostomy status; Z98.0 Intestinal bypass and anastomosis status; Z98.84 Bariatric surgery status; R11.2 Nausea with vomiting, unspecified; L08.9 Local infection of the skin and subcutaneous tissue, unspecified; F11.20 Opioid dependence, uncomplicated; E66.01 Morbid (severe) obesity due to excess calories; Z68.35 Body mass index [BMI] 35.0-35.9, adult; K31.84 Gastroparesis; K90.829 Short bowel syndrome, unspecified; Z86.718 Personal history of other venous thrombosis and embolism; G89.4 Chronic pain syndrome; K21.9 Gastro-esophageal reflux disease without esophagitis; G40.909 Epilepsy, unspecified, not intractable, without status epilepticus; I95.9 Hypotension, unspecified; D72.829 Elevated white blood cell count, unspecified; F32.A Depression, unspecified; D68.59 Other primary thrombophilia; D50.9 Iron deficiency anemia, unspecified; E78.5 Hyperlipidemia, unspecified; J45.909 Unspecified asthma, uncomplicated; Z88.2 Allergy status to sulfonamides; Z88.1 Allergy status to other antibiotic agents; Z88.5 Allergy status to narcotic agent; Z88.8 Allergy status to other drugs, medicaments and biological substances; Z91.018 Allergy to other foods; Z79.899 Other long term (current) drug therapy
CPT/HCPCS: 43235; 74177; 80048; 80180; 84145; 85025; 85027; 85610; 85730; 86140; 86850; 86900; 86901; 87635; 93005; 96365; 96366; 96375; 96376; 99285; C9113; C9254; J1100; J1170; J1200; J1953; J2060; J2405; J2765; J3010; Q9967

== ENCOUNTER 2023-10-02 23:29 | Emergency (ER) | payer BC, OTHER ==
[~2023-10-02] VITALS: Ht 170.2 cm; Wt 72.2 kg
[~2023-10-02 23:29] MED LIST changes: +DEXA6TAB PO; -EFFE37.5 PO; +EFFE37.52 PO
[2023-10-02] MEDS ORDERED: SODIUM CHLORIDE 0.9% INJ 10 ML SYR IV PRN (23:45)
[2023-10-02] MEDS ORDERED: diphenhydrAMINE 50MG/ML VIAL IV ONE (23:55)
[2023-10-02] MEDS ORDERED: HALOPERIDOL 5MG/ML 1ML VIAL IV ONE (23:55)
[2023-10-03 00:21] VITALS: TEMP 98.8
[2023-10-03 00:39] LABS: BLOOD UREA NITROGEN 11 MG/DL (9-23); CALCIUM LEVEL 9.8 MG/DL (8.5-10.1); CARBON DIOXIDE LEVEL 22 MMOL/L (20-31); CHLORIDE LEVEL 105 MMOL/L (98-107); CREATININE FOR GFR 0.62 MG/DL (0.55-1.30); GLOMERULAR FILTRATION RATE > 60.0 (>58); GLUCOSE, FASTING 216 MG/DL (60-100); SODIUM LEVEL 140 MMOL/L (136-145)
[2023-10-03 00:41] LABS: PROLACTIN 4.55 NG/ML
[2023-10-03 00:57] LABS: BASO % 0.3 % (0.0-1.0); EOS % 0.2 % (0.0-3.0); HEMATOCRIT 39.8 % (36.0-47.0); LYMPH % 10.2 % (24.0-44.0); MEAN CORPUSCULAR HEMOGLOBIN 27.5 pg (27.0-33.0); MEAN CORPUSCULAR HGB CONC 32.7 g/dl (32.0-36.5); MEAN CORPUSCULAR VOLUME 84.1 fl (80.0-96.0); MONO # 0.3 10^3/uL (0.0-0.8); NEUTROPHILS # 8.8 10^3/uL (1.5-8.5); PLATELET COUNT, AUTOMATED 327 10^3/uL (150-450); RED BLOOD COUNT 4.73 10^6/uL (4.00-5.40); WHITE BLOOD COUNT 10.2 10^3/uL (4.0-10.0)
[2023-10-03] MEDS ORDERED: oxyCODONE 20MG CR TAB XX ONE (02:15)
[2023-10-03] MEDS ORDERED: oxyCODONE 20MG CR TAB PO ONE (02:20)
[2023-10-03] MEDS ORDERED: oxyCODONE 5MG TAB PEG ONE (02:25)
[2023-10-03] MEDS: GASTROGRAFIN SOLUTION 30ML PO SCH ×2 (03:26→04:23)
[2023-10-03] MEDS ORDERED: METOCLOPRAMIDE INJ 10MG/2ML VIAL IV ONE (04:00)
[2023-10-03] MEDS ORDERED: ISOVUE-370 76% 100ML VIAL As Ordered ONE (04:31)
[2023-10-03 07:21] VITALS: BP 100/66; O2SAT 94
== END 2023-10-03 07:24 | disposition home or self-care (01) ==
LOC: M ED 23:29
DX: G89.29 Other chronic pain (principal); R10.9 Unspecified abdominal pain; Z98.84 Bariatric surgery status; F32.A Depression, unspecified; F41.9 Anxiety disorder, unspecified; F44.5 Conversion disorder with seizures or convulsions; D68.59 Other primary thrombophilia; F11.20 Opioid dependence, uncomplicated; Z86.14 Personal history of Methicillin resistant Staphylococcus aureus infection; Z95.9 Presence of cardiac and vascular implant and graft, unspecified; Z79.899 Other long term (current) drug therapy; Z88.6 Allergy status to analgesic agent; Z88.2 Allergy status to sulfonamides; Z88.5 Allergy status to narcotic agent; Z88.8 Allergy status to other drugs, medicaments and biological substances; Z91.018 Allergy to other foods
CPT/HCPCS: 74177; 80048; 80180; 83605; 84146; 85025; 87040; 87635; 93041; 94760; 96374; 96375; 99285; J1200; J1630; J2765; Q9963; Q9967

== ENCOUNTER → 2023-10-22 | Outpatient (CLI) | payer BC, OTHER | LOC: M PAL 07:57 | PROVIDERS: ATTEND Nurse Practitioner Adult Health | DX: K90.829 Short bowel syndrome, unspecified (principal); K31.84 Gastroparesis; G89.29 Other chronic pain; R10.84 Generalized abdominal pain; Z51.5 Encounter for palliative care; G40.009 Localization-related (focal) (partial) idiopathic epilepsy and epileptic syndromes with seizures of localized onset, not intractable, without status epilepticus; R11.2 Nausea with vomiting, unspecified; R53.83 Other fatigue; Z79.891 Long term (current) use of opiate analgesic; Z79.899 Other long term (current) drug therapy; Z86.16 Personal history of COVID-19; Z88.1 Allergy status to other antibiotic agents; Z88.2 Allergy status to sulfonamides; Z88.6 Allergy status to analgesic agent; Z88.8 Allergy status to other drugs, medicaments and biological substances; Z90.710 Acquired absence of both cervix and uterus; Z91.018 Allergy to other foods; Z93.1 Gastrostomy status; Z93.4 Other artificial openings of gastrointestinal tract status; Z98.84 Bariatric surgery status ==

== ENCOUNTER → 2023-10-29 | Outpatient (REF) | payer BC, OTHER ==
[2023-10-29 12:28] LABS: BASO % 0.3 % (0.0-1.0); EOS # 0.1 10^3/uL (0.0-0.5); HEMATOCRIT 31.4 % (36.0-47.0); HEMOGLOBIN 9.8 g/dl (12.0-15.5); LYMPH # 0.6 10^3/uL (1.5-5.0); LYMPH % 8.5 % (24.0-44.0); MEAN CORPUSCULAR HEMOGLOBIN 27.5 pg (27.0-33.0); MEAN CORPUSCULAR HGB CONC 31.2 g/dl (32.0-36.5); MEAN CORPUSCULAR VOLUME 88.2 fl (80.0-96.0); MONO # 0.7 10^3/uL (0.0-0.8); MONO % 10.2 % (2.0-8.0); NEUTROPHILS # 5.6 10^3/uL (1.5-8.5); NEUTROPHILS % 79.7 % (36.0-66.0); PLATELET COUNT, AUTOMATED 188 10^3/uL (150-450); RED BLOOD COUNT 3.56 10^6/uL (4.00-5.40)
[2023-10-29 12:47] LABS: ALBUMIN 2.9 G/DL (3.2-5.2); ALKALINE PHOSPHATASE 252 U/L (46-116); ALT/SGPT 61 U/L (7.0-40); AST/SGOT 45 U/L (<34); BILIRUBIN,TOTAL 0.5 MG/DL (0.3-1.2); BLOOD UREA NITROGEN 9 MG/DL (9-23); CALCIUM LEVEL 8.7 MG/DL (8.5-10.1); CARBON DIOXIDE LEVEL 29 MMOL/L (20-31); CHLORIDE LEVEL 106 MMOL/L (98-107); CHOLESTEROL LEVEL 178 MG/DL (<200); CHOLESTEROL RISK RATIO 5.83 (<5); CREATININE FOR GFR 0.55 MG/DL (0.55-1.30); GLOMERULAR FILTRATION RATE > 60.0 (>58); GLUCOSE, FASTING 124 MG/DL (60-100); HDL CHOLESTEROL 30.5 MG/DL (>40); LDL CHOLESTEROL 121.5 MG/DL (<100); MAGNESIUM LEVEL 1.9 MG/DL (1.8-2.4); NON-HDL-C 147.5 MG/DL; PHOSPHORUS LEVEL 3.7 MG/DL (2.5-4.9); POTASSIUM SERUM 3.7 MMOL/L (3.5-5.1); SODIUM LEVEL 140 MMOL/L (136-145); TOTAL PROTEIN 5.2 G/DL (5.7-8.2); TRIGLYCERIDES LEVEL 130 MG/DL (<150)
== END ==
LOC: M LAB REF 10:20
PROVIDERS: ATTEND Internal Medicine Gastroenterology
DX: K31.84 Gastroparesis (principal); D64.9 Anemia, unspecified; Z98.84 Bariatric surgery status

== ENCOUNTER 2023-11-11 14:55 | Outpatient (CLI) | payer BC, OTHER ==
[2023-11-11 15:15] VITALS: BP 141/81; O2SAT 100
[2023-11-12] MEDS ORDERED: OXYC20TA2 JT (09:42)
== END 2023-11-11 15:35 | disposition home or self-care (01) ==
LOC: M INFU 14:55
PROVIDERS: ATTEND Family Medicine
DX: Z45.2 Encounter for adjustment and management of vascular access device (principal); Z78.9 Other specified health status

== ENCOUNTER 2023-11-26 12:51 | Inpatient (IN) | payer BC, OTHER ==
[~2023-11-26] VITALS: Ht 170.2 cm; Wt 81.9 kg
[2023-11-26] VITALS (12 sets, daily range): BP systolic 128–155; BP diastolic 65–83; TEMP 97.8; O2SAT 100
[~2023-11-26 12:51] MED LIST changes: +ACET300T52 PO
[2023-11-26] MEDS: NS 1,000 ML IV SCH (13:30)
[2023-11-26 14:33] LABS: BASO % 0.1 % (0.0-1.0); EOS % 0.1 % (0.0-3.0); HEMATOCRIT 35.7 % (36.0-47.0); HEMOGLOBIN 11.4 g/dl (12.0-15.5); LYMPH # 0.4 10^3/uL (1.5-5.0); LYMPH % 3.8 % (24.0-44.0); MEAN CORPUSCULAR HEMOGLOBIN 27.5 pg (27.0-33.0); MEAN CORPUSCULAR HGB CONC 31.9 g/dl (32.0-36.5); MONO # 0.1 10^3/uL (0.0-0.8); MONO % 0.7 % (2.0-8.0); NEUTROPHILS # 8.9 10^3/uL (1.5-8.5); PLATELET COUNT, AUTOMATED 316 10^3/uL (150-450); RED BLOOD COUNT 4.15 10^6/uL (4.00-5.40); WHITE BLOOD COUNT 9.4 10^3/uL (4.0-10.0)
[2023-11-26 15:00] LABS: ALBUMIN 3.7 G/DL (3.2-5.2); ALKALINE PHOSPHATASE 141 U/L (46-116); ALT/SGPT 26 U/L (7.0-40); AST/SGOT 18 U/L (<34); BILIRUBIN,DIRECT 0.1 MG/DL (<0.4); BILIRUBIN,TOTAL 0.4 MG/DL (0.3-1.2); BLOOD UREA NITROGEN 9 MG/DL (9-23); CALCIUM LEVEL 9.7 MG/DL (8.5-10.1); CARBON DIOXIDE LEVEL 28 MMOL/L (20-31); CHLORIDE LEVEL 107 MMOL/L (98-107); CREATININE FOR GFR 0.57 MG/DL (0.55-1.30); GLOMERULAR FILTRATION RATE > 60.0 (>58); GLUCOSE, FASTING 164 MG/DL (60-100); PHOSPHORUS LEVEL 2.8 MG/DL (2.5-4.9); POTASSIUM SERUM 4.7 MMOL/L (3.5-5.1); SODIUM LEVEL 140 MMOL/L (136-145); TOTAL PROTEIN 6.8 G/DL (5.7-8.2)
[2023-11-26] MEDS: MORPHINE 2 MG/ML 1ML VIAL IV ONE (15:41)
[2023-11-26] MEDS ORDERED: LORazepam 2 MG/ML 1ML VIAL As Ordered ONE (16:14)
[2023-11-26] MEDS ORDERED: LORazepam 2 MG/ML 1ML VIAL ONE (16:20)
[2023-11-26] MEDS: LORazepam 2 MG/ML 1ML VIAL IV STA ×3 (16:21→16:36)
[2023-11-26 16:28] LABS: AMPHETAMINES LEVEL URINE NEGATIVE (NEGATIVE); BARBITURATES URINE NEGATIVE (NEGATIVE); COCAINE METABOLITE URINE NEGATIVE (NEGATIVE); METHADONE URINE NEGATIVE (NEGATIVE); PHENCYCLIDINE URINE NEGATIVE (NEGATIVE)
[2023-11-26 16:29] LABS: CANNABINOIDS URINE NEGATIVE (NEGATIVE)
[2023-11-26 16:31] LABS: BENZODIAZEPINES URINE POSITIVE (NEGATIVE); OPIATES URINE POSITIVE (NEGATIVE)
[2023-11-26] MEDS: ETOMIDATE INJ 20MG/10ML VIAL IV ONE (16:45)
[2023-11-26] MEDS: SUCCINYLCHOLINE INJ 200MG/10ML VIAL IV ONE (16:46)
[2023-11-26] MEDS ORDERED: [UNRECOGNIZED DRUG - CODE] TOP (16:50)
[2023-11-26] MEDS: propofoL 1,000 MG in IV 1 EA IV SCH ×2 (16:51→19:11)
[2023-11-26] MEDS ORDERED: HOME MED LIST COMPLETE! XX SCH (17:00)
[2023-11-26] MEDS ORDERED: MIDAZOLAM 5MG/ML 1ML VIAL As Ordered ONE (17:02)
[2023-11-26] MEDS: MIDAZOLAM INJ 2MG/2ML VIAL IV STA (17:04)
[2023-11-26] MEDS: levETIRAcetam INJection 1,000 MG in D5W 100 ML IV ONE (17:05)
[2023-11-26 17:34] LABS: ABG BASE EXCESS -0.6 (-2.0-2.0); ABG HCO3 21.7 MMOL/L (22.0-26.0); ABG O2 SATURATION 98.9 % (95.0-99.0); ABG PARTIAL PRESSURE CO2 28.7 mmHg (35.0-45.0); ABG PARTIAL PRESSURE O2 140.9 mmHg (75.0-100.0); ABG TOTAL CO2 22.6 MMOL/L (22.0-29.0); ABG pH (ARTERIAL) 7.497 UNITS (7.350-7.450)
[2023-11-26] MEDS ORDERED: FENTANYL DRIP LOCK BOX KEY 1 EACH XX PRN (18:00)
[2023-11-26] MEDS ORDERED: AMPICILLIN SOD 2 GM in D5W MINI-BAG PLUS 100 ML IV SCH (18:05)
[2023-11-26] MEDS ORDERED: LORazepam 0.5 MG TAB JT PRN (18:25)
[2023-11-26 18:46] LABS: VENOUS BASE EXCESS -1.6 (-2.0-2.0); VENOUS HCO3 21.8 MMOL/L (23.0-27.0); VENOUS O2 SATURATION 98.7 % (60.0-80.0); VENOUS PARTIAL PRESSURE CO2 32.6 mmHg (38.0-50.0); VENOUS PARTIAL PRESSURE O2 131.9 mmHg (30.0-50.0); VENOUS PH 7.443 UNITS (7.330-7.430); VENOUS STANDARD HCO3 23.1 MMOL/L; VENOUS TOTAL CO2 22.8 MMOL/L (24.0-28.0)
[2023-11-26] MEDS ORDERED: PANTOPRAZOLE 40MG VIAL IV SCH (19:00)
[2023-11-26] MEDS: LR 1,000 ML IV SCH (19:03)
[2023-11-26] MEDS: AMPICILLIN SOD/SULBACTAM SOD 3 GM in D5W MINI-BAG PLUS 100 ML IV SCH (19:12)
[2023-11-26] MEDS: fentaNYL CITRATE/NaCl 1,000 MCG in IV 1 EA IV SCH (19:27)
[2023-11-26] MEDS: MIDAZOLAM 100MG/100ML-0.9%NACL 100 MG in IV 1 EA IV SCH (20:19)
[2023-11-26] MEDS: PANTOPRAZOLE 40MG VIAL IV SCH (21:34)
[2023-11-27] VITALS (42 sets, daily range): BP systolic 91–153; BP diastolic 51–76; TEMP 97.1–98.2; O2SAT 94–100
[2023-11-27] LABS: ABG BASE EXCESS 0.9 (-2.0-2.0); ABG HCO3 23.7 MMOL/L (22.0-26.0); ABG O2 SATURATION 98.5 % (95.0-99.0); ABG PARTIAL PRESSURE CO2 32.1 mmHg (35.0-45.0); ABG PARTIAL PRESSURE O2 110.3 mmHg (75.0-100.0); ABG STANDARD HCO3 25.3 MMOL/L. (22.0-26.0); ABG TOTAL CO2 24.7 MMOL/L (22.0-29.0); ABG pH (ARTERIAL) 7.487 UNITS (7.350-7.450)
[2023-11-27] MEDS: levETIRAcetam INJection 1,000 MG in D5W 100 ML IV SCH (04:26)
[2023-11-27] MEDS ORDERED: LEVETIRACETAM 500 MG/5 ML IV SCH (05:00)
[2023-11-27 05:16] LABS: ALBUMIN 3.7 G/DL (3.2-5.2); ALKALINE PHOSPHATASE 134 U/L (46-116); ALT/SGPT 22 U/L (7.0-40); AST/SGOT 25 U/L (<34); BILIRUBIN,TOTAL 0.5 MG/DL (0.3-1.2); BLOOD UREA NITROGEN 10 MG/DL (9-23); CALCIUM LEVEL 9.4 MG/DL (8.5-10.1); CARBON DIOXIDE LEVEL 27 MMOL/L (20-31); CHLORIDE LEVEL 104 MMOL/L (98-107); CREATININE FOR GFR 0.58 MG/DL (0.55-1.30); GLOMERULAR FILTRATION RATE > 60.0 (>58); GLUCOSE, FASTING 172 MG/DL (60-100); POTASSIUM SERUM 4.2 MMOL/L (3.5-5.1); SODIUM LEVEL 140 MMOL/L (136-145); TOTAL PROTEIN 6.6 G/DL (5.7-8.2)
[2023-11-27] MEDS: MIDODRINE 5 MG TAB JT SCH (08:00)
[2023-11-27] MEDS: fentaNYL CITRATE 1,000 MCG in NS 80 ML IV SCH (08:20)
[2023-11-27] MEDS: ROSUVASTATIN 10 MG TAB (CRESTOR) JT SCH (09:00)
[2023-11-27] MEDS ORDERED: ENOXAPARIN 40MG/0.4ML SYRINGE (J1650 PER 10MG) SC SCH (09:00)
[2023-11-27] MEDS ORDERED: TPN (09:26)
[2023-11-27] MEDS: ENOXAPARIN 60MG/0.6ML SYRINGE (J1650 PER 10MG) SC SCH (12:00)
[2023-11-27] MEDS: oxyCODONE 5MG TAB JT PRN (12:01)
[2023-11-27] MEDS: diphenhydrAMINE 50MG/ML VIAL IV PRN (17:54)
[2023-11-27] MEDS: TPN IV SCH (17:54)
[2023-11-27] MEDS: ONDANSETRON 4MG 2ML VIAL IV PRN (17:54)
[2023-11-27] MEDS: zolPIDEM TARTRATE 5 MG TAB JT SCH (20:58)
[2023-11-28] VITALS (12 sets, daily range): BP systolic 111–128; BP diastolic 55–66; TEMP 97–98.8; O2SAT 95–99
[2023-11-28 05:34] LABS: BLOOD UREA NITROGEN 16 MG/DL (9-23); CARBON DIOXIDE LEVEL 31 MMOL/L (20-31); CHLORIDE LEVEL 103 MMOL/L (98-107); CREATININE FOR GFR 0.59 MG/DL (0.55-1.30); GLOMERULAR FILTRATION RATE > 60.0 (>58); GLUCOSE, FASTING 186 MG/DL (60-100); MAGNESIUM LEVEL 2.2 MG/DL (1.8-2.4); POTASSIUM SERUM 4.1 MMOL/L (3.5-5.1); SODIUM LEVEL 139 MMOL/L (136-145)
[2023-11-28] MEDS ORDERED: [UNRECOGNIZED DRUG - NUTRITION] IV SCH (09:00)
== END 2023-11-28 12:25 | disposition home or self-care (01) | DRG 53 ==
LOC: EDBD 12:51 → M ED 12:51 → M ED INP 17:58 → M ICU 20:11
PROVIDERS: ADMIT Internal Medicine Pulmonary Disease; ATTEND Student in an Organized Health Care Education/Training Program
PROC: 0BH17EZ Insertion of Endotracheal Airway into Trachea, Via Natural or Artificial Opening (ICD-10-PCS; principal; 2023-11-26)
PROC: 5A1935Z Respiratory Ventilation, Less than 24 Consecutive Hours (ICD-10-PCS; 2023-11-26)
DX: G40.201 Localization-related (focal) (partial) symptomatic epilepsy and epileptic syndromes with complex partial seizures, not intractable, with status epilepticus (principal); J96.01 Acute respiratory failure with hypoxia; K91.2 Postsurgical malabsorption, not elsewhere classified; K83.1 Obstruction of bile duct; D68.59 Other primary thrombophilia; F11.20 Opioid dependence, uncomplicated; Z93.4 Other artificial openings of gastrointestinal tract status; K21.9 Gastro-esophageal reflux disease without esophagitis; M96.1 Postlaminectomy syndrome, not elsewhere classified; J45.909 Unspecified asthma, uncomplicated; F32.A Depression, unspecified; F41.9 Anxiety disorder, unspecified; D50.9 Iron deficiency anemia, unspecified; K02.9 Dental caries, unspecified; K90.0 Celiac disease; E78.2 Mixed hyperlipidemia; E55.9 Vitamin D deficiency, unspecified; E16.2 Hypoglycemia, unspecified; Z86.14 Personal history of Methicillin resistant Staphylococcus aureus infection; Z79.899 Other long term (current) drug therapy; Z88.2 Allergy status to sulfonamides; Z88.6 Allergy status to analgesic agent; Z88.8 Allergy status to other drugs, medicaments and biological substances; Z86.718 Personal history of other venous thrombosis and embolism; Z91.018 Allergy to other foods

== ENCOUNTER → 2023-12-04 | Outpatient (CLI) | payer BC, OTHER ==
[~2023-12-04] VITALS: Ht 170.2 cm; Wt 80.5 kg
[~2023-12-04] MED LIST changes: +LIDOCAINE VISCOUS 2%; +TPN; +[UNRECOGNIZED DRUG - CODE] TOP
[2023-12-04 08:05] VITALS: BP 130/88; O2SAT 100
== END ==
LOC: M PAL 07:47
PROVIDERS: ATTEND Nurse Practitioner Adult Health
DX: G89.29 Other chronic pain (principal); K31.84 Gastroparesis; R10.84 Generalized abdominal pain; R53.1 Weakness; K08.109 Complete loss of teeth, unspecified cause, unspecified class; K90.829 Short bowel syndrome, unspecified; G40.009 Localization-related (focal) (partial) idiopathic epilepsy and epileptic syndromes with seizures of localized onset, not intractable, without status epilepticus; R11.2 Nausea with vomiting, unspecified; Z51.5 Encounter for palliative care; Z79.891 Long term (current) use of opiate analgesic; Z79.899 Other long term (current) drug therapy; Z86.711 Personal history of pulmonary embolism; Z88.1 Allergy status to other antibiotic agents; Z88.2 Allergy status to sulfonamides; Z88.8 Allergy status to other drugs, medicaments and biological substances; Z88.5 Allergy status to narcotic agent; Z88.6 Allergy status to analgesic agent; Z90.710 Acquired absence of both cervix and uterus; Z91.018 Allergy to other foods; Z93.1 Gastrostomy status; Z93.4 Other artificial openings of gastrointestinal tract status; Z98.84 Bariatric surgery status; Z98.890 Other specified postprocedural states

== ENCOUNTER → 2023-12-23 | Outpatient (REF) | payer BC, OTHER | LOC: M LAB REF 09:43 | PROVIDERS: ATTEND Internal Medicine Gastroenterology | DX: R11.2 Nausea with vomiting, unspecified (principal); R10.9 Unspecified abdominal pain ==

== ENCOUNTER → 2023-12-26 | Outpatient (REF) | payer OTHER ==
[~2023-12-26] MED LIST changes: +SENN-183; -SENN-84
[2023-12-26 14:47] LABS: BASO % 0.6 % (0.0-1.0); EOS % 0.8 % (0.0-3.0); HEMATOCRIT 38.8 % (36.0-47.0); HEMOGLOBIN 11.8 g/dl (12.0-15.5); LYMPH # 1.2 10^3/uL (1.5-5.0); LYMPH % 25.1 % (24.0-44.0); MEAN CORPUSCULAR HEMOGLOBIN 27.4 pg (27.0-33.0); MEAN CORPUSCULAR HGB CONC 30.4 g/dl (32.0-36.5); MONO # 0.5 10^3/uL (0.0-0.8); MONO % 9.2 % (2.0-8.0); NEUTROPHILS # 3.1 10^3/uL (1.5-8.5); NEUTROPHILS % 63.9 % (36.0-66.0); PLATELET COUNT, AUTOMATED 262 10^3/uL (150-450); RED BLOOD COUNT 4.31 10^6/uL (4.00-5.40); WHITE BLOOD COUNT 4.9 10^3/uL (4.0-10.0)
[2023-12-26 15:13] LABS: ALBUMIN 3.2 G/DL (3.2-5.2); ALKALINE PHOSPHATASE 119 U/L (46-116); ALT/SGPT 22 U/L (7.0-40); AST/SGOT 20 U/L (<34); BILIRUBIN,TOTAL 0.3 MG/DL (0.3-1.2); BLOOD UREA NITROGEN 8 MG/DL (9-23); CALCIUM LEVEL 7.8 MG/DL (8.5-10.1); CARBON DIOXIDE LEVEL 22 MMOL/L (20-31); CHLORIDE LEVEL 111 MMOL/L (98-107); CHOLESTEROL LEVEL 226 MG/DL (<200); CHOLESTEROL RISK RATIO 6.78 (<5); CREATININE FOR GFR 0.57 MG/DL (0.55-1.30); GLOMERULAR FILTRATION RATE > 60.0 (>58); GLUCOSE, FASTING 138 MG/DL (60-100); HDL CHOLESTEROL 33.3 MG/DL (>40); LDL CHOLESTEROL 170.5 MG/DL (<100); MAGNESIUM LEVEL 1.7 MG/DL (1.8-2.4); NON-HDL-C 192.7 MG/DL; POTASSIUM SERUM 3.6 MMOL/L (3.5-5.1); SODIUM LEVEL 142 MMOL/L (136-145); TOTAL PROTEIN 5.9 G/DL (5.7-8.2); TRIGLYCERIDES LEVEL 111 MG/DL (<150)
== END ==
LOC: M LAB REF 14:09
PROVIDERS: ATTEND Internal Medicine Gastroenterology
DX: K31.84 Gastroparesis (principal); Z98.84 Bariatric surgery status; D64.9 Anemia, unspecified

== ENCOUNTER → 2024-01-18 | Outpatient (REF) | payer BC ==
[2024-01-18 19:40] LABS: HEMATOCRIT 34.7 % (36.0-47.0); HEMOGLOBIN 10.9 g/dl (12.0-15.5); LYMPH % 36.4 % (24.0-44.0); MEAN CORPUSCULAR HEMOGLOBIN 27.7 pg (27.0-33.0); MEAN CORPUSCULAR HGB CONC 31.4 g/dl (32.0-36.5); MEAN CORPUSCULAR VOLUME 88.3 fl (80.0-96.0); NEUTROPHILS % 46.7 % (36.0-66.0); PLATELET COUNT, AUTOMATED 370 10^3/uL (150-450); RED BLOOD COUNT 3.93 10^6/uL (4.00-5.40); WHITE BLOOD COUNT 6.1 10^3/uL (4.0-10.0)
[2024-01-18 19:41] LABS: BASO % 0.3 % (0.0-1.0); EOS # 0.4 10^3/uL (0.0-0.5); EOS % 7.1 % (0.0-3.0); LYMPH # 2.2 10^3/uL (1.5-5.0); MONO # 0.6 10^3/uL (0.0-0.8); MONO % 9.2 % (2.0-8.0); NEUTROPHILS # 2.8 10^3/uL (1.5-8.5)
[2024-01-18 20:02] LABS: FERRITIN 174.8 NG/ML (7.3-270.7); IRON (FE) 40 UG/DL (50-170)
[2024-01-18 20:32] LABS: ALBUMIN 3.5 G/DL (3.2-5.2); ALKALINE PHOSPHATASE 195 U/L (46-116); ALT/SGPT 97 U/L (7.0-40); AST/SGOT 132 U/L (<34); BILIRUBIN,TOTAL 0.4 MG/DL (0.3-1.2); BLOOD UREA NITROGEN 5 MG/DL (9-23); CALCIUM LEVEL 9.1 MG/DL (8.5-10.1); CARBON DIOXIDE LEVEL 29 MMOL/L (20-31); CHLORIDE LEVEL 101 MMOL/L (98-107); CHOLESTEROL LEVEL 156 MG/DL (<200); CHOLESTEROL RISK RATIO 4.93 (<5); CREATININE FOR GFR 0.53 MG/DL (0.55-1.30); GLOMERULAR FILTRATION RATE > 60.0 (>58); GLUCOSE, FASTING 124 MG/DL (60-100); HDL CHOLESTEROL 31.6 MG/DL (>40); LDL CHOLESTEROL 70.4 MG/DL (<100); MAGNESIUM LEVEL 1.8 MG/DL (1.8-2.4); NON-HDL-C 124.4 MG/DL; PHOSPHORUS LEVEL 3.8 MG/DL (2.5-4.9); POTASSIUM SERUM 4.1 MMOL/L (3.5-5.1); SODIUM LEVEL 139 MMOL/L (136-145); TOTAL PROTEIN 6.2 G/DL (5.7-8.2); TRIGLYCERIDES LEVEL 270 MG/DL (<150)
== END ==
LOC: M LAB REF 19:19
PROVIDERS: ATTEND Internal Medicine Gastroenterology
DX: K31.84 Gastroparesis (principal); D64.9 Anemia, unspecified

== ENCOUNTER 2024-01-20 15:07 | Emergency (ER) | payer BC ==
[~2024-01-20] VITALS: Ht 170.2 cm; Wt 78.7 kg
[2024-01-20 15:40] VITALS: BP 106/53; TEMP 96.9; O2SAT 100
[2024-01-20 16:28] LABS: BASO % 0.7 % (0.0-1.0); EOS # 0.3 10^3/uL (0.0-0.5); EOS % 5.1 % (0.0-3.0); HEMATOCRIT 35.8 % (36.0-47.0); HEMOGLOBIN 11.3 g/dl (12.0-15.5); LYMPH # 1.5 10^3/uL (1.5-5.0); LYMPH % 25.9 % (24.0-44.0); MEAN CORPUSCULAR HEMOGLOBIN 27.6 pg (27.0-33.0); MEAN CORPUSCULAR HGB CONC 31.6 g/dl (32.0-36.5); MEAN CORPUSCULAR VOLUME 87.3 fl (80.0-96.0); MONO # 0.5 10^3/uL (0.0-0.8); NEUTROPHILS # 3.4 10^3/uL (1.5-8.5); NEUTROPHILS % 59.8 % (36.0-66.0); PLATELET COUNT, AUTOMATED 351 10^3/uL (150-450); WHITE BLOOD COUNT 5.7 10^3/uL (4.0-10.0)
[2024-01-20 16:56] LABS: BLOOD UREA NITROGEN 7 MG/DL (9-23); CALCIUM LEVEL 9.7 MG/DL (8.5-10.1); CARBON DIOXIDE LEVEL 29 MMOL/L (20-31); CHLORIDE LEVEL 102 MMOL/L (98-107); CREATININE FOR GFR 0.62 MG/DL (0.55-1.30); GLOMERULAR FILTRATION RATE > 60.0 (>58); GLUCOSE, FASTING 142 MG/DL (60-100); POTASSIUM SERUM 4.1 MMOL/L (3.5-5.1); SODIUM LEVEL 141 MMOL/L (136-145)
[2024-01-20 16:59] LABS: FREE T4 0.95 NG/DL (0.89-1.76); THYROID STIMULATING HORMONE 0.369 uIU/ML (0.55-4.78)
[2024-01-20] MEDS: NS 1,000 ML IV ONE (17:22)
[2024-01-20] MEDS: ONDANSETRON 4MG 2ML VIAL IV ONE (17:22)
[2024-01-20] MEDS: diphenhydrAMINE 50MG/ML VIAL IV STA (17:23)
[2024-01-20] MEDS ORDERED: ISOVUE-370 76% 100ML VIAL As Ordered ONE (17:46)
[2024-01-20 19:55] LABS: LIPASE 29 U/L (12-53)
[2024-01-20 19:57] LABS: ALBUMIN 3.9 G/DL (3.2-5.2); ALKALINE PHOSPHATASE 202 U/L (46-116); ALT/SGPT 84 U/L (7.0-40); AST/SGOT 54 U/L (<34); BILIRUBIN,DIRECT 0.2 MG/DL (<0.4); BILIRUBIN,TOTAL 0.4 MG/DL (0.3-1.2); TOTAL PROTEIN 6.8 G/DL (5.7-8.2)
== END 2024-01-20 19:39 | disposition left against medical advice (07) ==
LOC: M ED 15:07
DX: R06.00 Dyspnea, unspecified (principal); R00.0 Tachycardia, unspecified; Z88.8 Allergy status to other drugs, medicaments and biological substances; Z88.2 Allergy status to sulfonamides; Z91.018 Allergy to other foods; Z79.899 Other long term (current) drug therapy; Z79.1 Long term (current) use of non-steroidal anti-inflammatories (NSAID); Z53.9 Procedure and treatment not carried out, unspecified reason
CPT/HCPCS: 71045; 80048; 80076; 83605; 83690; 83735; 84439; 84443; 85025; 87040; 87486; 87581; 87633; 87798; 93005; 93041; 94760; 96374; 96375; 99284; J1200; J2405

== ENCOUNTER → 2024-01-20 | Outpatient (REF) | payer OTHER | LOC: M LAB REF 17:09 | PROVIDERS: ATTEND Internal Medicine Gastroenterology | DX: A41.4 Sepsis due to anaerobes (principal); K31.84 Gastroparesis ==

== ENCOUNTER → 2024-03-26 | Outpatient (CLI) | payer BC ==
[~2024-03-26] MED LIST changes: +FLUO20SO15 PEG; +ONDA-282; +ONDA-284 PO; -ONDA4TAB6; -ONDA8TAB8 PO; -ROSU10TA6 JT; +ROSU10TA61 JT; +ROSU5TAB40 PO; -ROSU5TAB5 PO; -ZOLP12.518; -ZOLP12.518 GT; -ZOLP12.518 PO; +ZOLP12.535; +ZOLP12.535 GT; +ZOLP12.535 PO; -ZOLP6.2517 PO; +ZOLP6.2526 PO
== END ==
LOC: M PAL 08:17
PROVIDERS: ATTEND Nurse Practitioner Adult Health
DX: G89.29 Other chronic pain (principal); K31.84 Gastroparesis; R10.84 Generalized abdominal pain; R53.1 Weakness; K08.109 Complete loss of teeth, unspecified cause, unspecified class; K90.829 Short bowel syndrome, unspecified; G40.009 Localization-related (focal) (partial) idiopathic epilepsy and epileptic syndromes with seizures of localized onset, not intractable, without status epilepticus; R11.2 Nausea with vomiting, unspecified; F41.9 Anxiety disorder, unspecified; F32.A Depression, unspecified; Z51.5 Encounter for palliative care; Z79.01 Long term (current) use of anticoagulants; Z79.891 Long term (current) use of opiate analgesic; Z79.899 Other long term (current) drug therapy; Z86.16 Personal history of COVID-19; Z86.711 Personal history of pulmonary embolism; Z88.1 Allergy status to other antibiotic agents; Z88.2 Allergy status to sulfonamides; Z88.5 Allergy status to narcotic agent; Z88.6 Allergy status to analgesic agent; Z88.8 Allergy status to other drugs, medicaments and biological substances; Z91.018 Allergy to other foods; Z90.710 Acquired absence of both cervix and uterus; Z93.1 Gastrostomy status; Z93.4 Other artificial openings of gastrointestinal tract status; Z98.84 Bariatric surgery status; Z98.890 Other specified postprocedural states

== ENCOUNTER → 2024-04-28 | Outpatient (CLI) | payer BC ==
[~2024-04-28] VITALS: Ht 170.2 cm; Wt 80.8 kg
[2024-04-28 08:05] VITALS: BP 141/87; O2SAT 99
== END ==
LOC: M PAL 07:50
PROVIDERS: ATTEND Nurse Practitioner Adult Health
DX: G89.29 Other chronic pain (principal); K31.84 Gastroparesis; R10.84 Generalized abdominal pain; R53.1 Weakness; K08.109 Complete loss of teeth, unspecified cause, unspecified class; K90.829 Short bowel syndrome, unspecified; D68.59 Other primary thrombophilia; G40.009 Localization-related (focal) (partial) idiopathic epilepsy and epileptic syndromes with seizures of localized onset, not intractable, without status epilepticus; R11.2 Nausea with vomiting, unspecified; F41.9 Anxiety disorder, unspecified; F32.A Depression, unspecified; Z51.5 Encounter for palliative care; Z79.01 Long term (current) use of anticoagulants; Z79.891 Long term (current) use of opiate analgesic; Z79.899 Other long term (current) drug therapy; Z86.16 Personal history of COVID-19; Z86.711 Personal history of pulmonary embolism; Z88.1 Allergy status to other antibiotic agents; Z88.2 Allergy status to sulfonamides; Z88.5 Allergy status to narcotic agent; Z88.6 Allergy status to analgesic agent; Z88.8 Allergy status to other drugs, medicaments and biological substances; Z91.018 Allergy to other foods; Z90.710 Acquired absence of both cervix and uterus; Z93.1 Gastrostomy status; Z93.4 Other artificial openings of gastrointestinal tract status; Z98.84 Bariatric surgery status; Z98.890 Other specified postprocedural states

== ENCOUNTER 2024-05-23 16:44 | Emergency (ER) | payer BC ==
[~2024-05-23] VITALS: Ht 170.2 cm; Wt 80.9 kg
[2024-05-23 17:25] VITALS: TEMP 98.6
[2024-05-23 17:59] LABS: BASO % 0.5 % (0.0-1.0); EOS # 0.3 10^3/uL (0.0-0.5); EOS % 4.6 % (0.0-3.0); HEMATOCRIT 30.4 % (36.0-47.0); HEMOGLOBIN 9.3 g/dl (12.0-15.5); LYMPH # 1.5 10^3/uL (1.5-5.0); LYMPH % 22.3 % (24.0-44.0); MEAN CORPUSCULAR HEMOGLOBIN 25.4 pg (27.0-33.0); MEAN CORPUSCULAR HGB CONC 30.6 g/dl (32.0-36.5); MEAN CORPUSCULAR VOLUME 83.1 fl (80.0-96.0); MONO # 0.6 10^3/uL (0.0-0.8); MONO % 9.8 % (2.0-8.0); NEUTROPHILS # 4.1 10^3/uL (1.5-8.5); NEUTROPHILS % 62.5 % (36.0-66.0); PLATELET COUNT, AUTOMATED 324 10^3/uL (150-450); RED BLOOD COUNT 3.66 10^6/uL (4.00-5.40); WHITE BLOOD COUNT 6.5 10^3/uL (4.0-10.0)
[2024-05-23] MEDS: NS 2,430 ML in IV 1 EA IV ONE (18:18)
[2024-05-23] MEDS: ONDANSETRON 4MG 2ML VIAL IV ONE (18:19)
[2024-05-23] MEDS: diphenhydrAMINE 50MG/ML VIAL IV ONE (18:19)
[2024-05-23 18:29] LABS: ALBUMIN 3.6 G/DL (3.2-5.2); ALKALINE PHOSPHATASE 180 U/L (46-116); ALT/SGPT 69 U/L (7.0-40); AST/SGOT 56 U/L (<34); BILIRUBIN,TOTAL 0.4 MG/DL (0.3-1.2); BLOOD UREA NITROGEN 7 MG/DL (9-23); CALCIUM LEVEL 9.3 MG/DL (8.5-10.1); CARBON DIOXIDE LEVEL 30 MMOL/L (20-31); CHLORIDE LEVEL 103 MMOL/L (98-107); CREATININE FOR GFR 0.58 MG/DL (0.55-1.30); GLOMERULAR FILTRATION RATE > 60.0 (>58); GLUCOSE, FASTING 108 MG/DL (60-100); POTASSIUM SERUM 4.5 MMOL/L (3.5-5.1); SODIUM LEVEL 137 MMOL/L (136-145); TOTAL PROTEIN 6.1 G/DL (5.7-8.2)
[2024-05-23] MEDS: CEFEPIME HCL 1 GM in D5W MINI-BAG PLUS 50 ML IV ONE (18:58)
[2024-05-23] MEDS ORDERED: ENOX40IN3 SC (19:58)
[2024-05-23] MEDS ORDERED: HOME MED LIST COMPLETE! XX SCH (20:00)
[2024-05-23] MEDS: VANCOMYCIN HCL 1,000 MG, VIAL MATE ADAPTER 1 EACH in D5W 250 ML IV ONE (20:07)
[2024-05-23] MEDS: MORPHINE 4 MG/ML 1ML VIAL IV ONE (20:39)
[2024-05-23 21:09] VITALS: BP 110/64
[2024-05-23 21:30] VITALS: O2SAT 95
== END 2024-05-23 21:53 | disposition left against medical advice (07) ==
LOC: M ED 16:44
DX: L03.311 Cellulitis of abdominal wall (principal); Z88.6 Allergy status to analgesic agent; Z88.2 Allergy status to sulfonamides; Z88.8 Allergy status to other drugs, medicaments and biological substances; Z79.1 Long term (current) use of non-steroidal anti-inflammatories (NSAID); Z79.899 Other long term (current) drug therapy; Z53.9 Procedure and treatment not carried out, unspecified reason
CPT/HCPCS: 80053; 83605; 85025; 86140; 87040; 93005; 94760; 96365; 96366; 96374; 96375; 99284; J0692; J1200; J2405; J3370

== ENCOUNTER → 2024-06-25 | Outpatient (REF) | payer BC ==
[~2024-06-25] MED LIST changes: +DIPH50CA IV; +ENOX40IN3 SC
[2024-06-25 17:56] LABS: HEMATOCRIT 27.2 % (36.0-47.0); MEAN CORPUSCULAR HGB CONC 29.4 g/dl (32.0-36.5); PLATELET COUNT, AUTOMATED 273 10^3/uL (150-450); WHITE BLOOD COUNT 14.4 10^3/uL (4.0-10.0)
[2024-06-25 18:28] LABS: ALBUMIN 3.1 G/DL (3.2-5.2); ALKALINE PHOSPHATASE 131 U/L (46-116); ALT/SGPT 22 U/L (7.0-40); AST/SGOT 10 U/L (<34); BILIRUBIN,TOTAL 0.7 MG/DL (0.3-1.2); BLOOD UREA NITROGEN 15 MG/DL (9-23); CALCIUM LEVEL 8.5 MG/DL (8.5-10.1); CARBON DIOXIDE LEVEL 26 MMOL/L (20-31); CHLORIDE LEVEL 107 MMOL/L (98-107); CREATININE FOR GFR 0.82 MG/DL (0.55-1.30); GLOMERULAR FILTRATION RATE > 60.0 (>58); GLUCOSE, FASTING 182 MG/DL (60-100); MAGNESIUM LEVEL 1.8 MG/DL (1.8-2.4); PHOSPHORUS LEVEL 4.4 MG/DL (2.5-4.9); POTASSIUM SERUM 3.4 MMOL/L (3.5-5.1); SODIUM LEVEL 142 MMOL/L (136-145)
== END ==
LOC: M LAB REF 17:23
PROVIDERS: ATTEND Internal Medicine Gastroenterology
DX: Z98.84 Bariatric surgery status (principal)

== ENCOUNTER 2024-06-26 22:24 | Inpatient (IN) | payer BC ==
[~2024-06-26] VITALS: Ht 170.2 cm; Wt 87.8 kg
[~2024-06-26 22:24] MED LIST changes: -DIPH50CA IV
[2024-06-27] VITALS (10 sets, daily range): BP systolic 94–115; BP diastolic 46–99; TEMP 97.9–101.3; O2SAT 94–100
[2024-06-27 01:51] LABS: BASO % 0.3 % (0.0-1.0); EOS # 0.3 10^3/uL (0.0-0.5); EOS % 3.8 % (0.0-3.0); HEMATOCRIT 24.3 % (36.0-47.0); HEMOGLOBIN 7.4 g/dl (12.0-15.5); LYMPH # 1.1 10^3/uL (1.5-5.0); LYMPH % 14.2 % (24.0-44.0); MEAN CORPUSCULAR HEMOGLOBIN 25.5 pg (27.0-33.0); MEAN CORPUSCULAR HGB CONC 30.5 g/dl (32.0-36.5); MEAN CORPUSCULAR VOLUME 83.8 fl (80.0-96.0); MONO # 0.8 10^3/uL (0.0-0.8); MONO % 9.9 % (2.0-8.0); NEUTROPHILS # 5.6 10^3/uL (1.5-8.5); NEUTROPHILS % 71.2 % (36.0-66.0); PLATELET COUNT, AUTOMATED 274 10^3/uL (150-450); WHITE BLOOD COUNT 7.9 10^3/uL (4.0-10.0)
[2024-06-27] MEDS: ACETAMINOPHEN *IV* 1,000 MG in IV 1 EA IV ONE (01:58)
[2024-06-27 02:03] LABS: INR 1.05; PROTHROMBIN TIME 13.4 SECONDS (12.5-14.5)
[2024-06-27 02:18] LABS: ALBUMIN 2.9 G/DL (3.2-5.2); ALKALINE PHOSPHATASE 183 U/L (46-116); ALT/SGPT 38 U/L (7.0-40); AST/SGOT 43 U/L (<34); BILIRUBIN,DIRECT 0.3 MG/DL (<0.4); BILIRUBIN,TOTAL 0.6 MG/DL (0.3-1.2); BLOOD UREA NITROGEN 8 MG/DL (9-23); CALCIUM LEVEL 8.2 MG/DL (8.5-10.1); CARBON DIOXIDE LEVEL 28 MMOL/L (20-31); CHLORIDE LEVEL 102 MMOL/L (98-107); CK-MB VALUE MASS < 1.0 NG/ML (<3.6); CPK CREATINE PHOSPHOKINASE 19 U/L (34-145); CREATININE FOR GFR 0.59 MG/DL (0.55-1.30); GLOMERULAR FILTRATION RATE > 60.0 (>58); GLUCOSE, FASTING 160 MG/DL (60-100); MB/CK RELATIVE INDEX 5.26 (< OR =4); POTASSIUM SERUM 3.7 MMOL/L (3.5-5.1); SODIUM LEVEL 135 MMOL/L (136-145); TOTAL PROTEIN 5.7 G/DL (5.7-8.2)
[2024-06-27 02:24] LABS: HCG, SERUM QUALITATIVE NEGATIVE (NEGATIVE)
[2024-06-27 02:27] LABS: PROCALCITONIN 2.77 ng/ml
[2024-06-27] MEDS: NS 1,000 ML IV ONE (02:45)
[2024-06-27 03:04] LABS: CK-MB VALUE MASS < 1.0 NG/ML (<3.6)
[2024-06-27 03:06] LABS: CPK CREATINE PHOSPHOKINASE 18 U/L (34-145); MB/CK RELATIVE INDEX 5.55 (< OR =4)
[2024-06-27] MEDS: IPRATROPIUM 0.5MG/ALBUTEROL 2.5MG INH SOL UD 3ML (DUONEB) NEB ONE (03:29)
[2024-06-27] MEDS: ONDANSETRON 4MG 2ML VIAL IV ONE (03:31)
[2024-06-27] MEDS: diphenhydrAMINE 50MG/ML VIAL IV ONE (03:31)
[2024-06-27] MEDS: PIPERACILLIN/TAZOBACTAM SOD 4.5 GM in D5W MINI-BAG PLUS 50 ML IV ONE (03:32)
[2024-06-27] MEDS ORDERED: DIPH50CA IV (04:13)
[2024-06-27] MEDS ORDERED: HOME MED LIST COMPLETE! XX SCH ×2 (04:15→18:30)
[2024-06-27 04:46] LABS: PROCALCITONIN 2.83 ng/ml
[2024-06-27] MEDS: guaiFENesin/CODEINE SYRUP 5 ML UDC PO SCH (05:10)
[2024-06-27] MEDS: IPRATROPIUM 0.5MG/ALBUTEROL 2.5MG INH SOL UD 3ML (DUONEB) INH SCH (05:31)
[2024-06-27 05:59] LABS: HEMATOCRIT 22.7 % (36.0-47.0); HEMOGLOBIN 7.1 g/dl (12.0-15.5); MEAN CORPUSCULAR HEMOGLOBIN 26.1 pg (27.0-33.0); MEAN CORPUSCULAR HGB CONC 31.3 g/dl (32.0-36.5); MEAN CORPUSCULAR VOLUME 83.5 fl (80.0-96.0); PLATELET COUNT, AUTOMATED 230 10^3/uL (150-450); RED BLOOD COUNT 2.72 10^6/uL (4.00-5.40); WHITE BLOOD COUNT 6.9 10^3/uL (4.0-10.0)
[2024-06-27 06:24] LABS: ALBUMIN 2.7 G/DL (3.2-5.2); ALKALINE PHOSPHATASE 170 U/L (46-116); ALT/SGPT 37 U/L (7.0-40); AST/SGOT 39 U/L (<34); BILIRUBIN,TOTAL 0.8 MG/DL (0.3-1.2); BLOOD UREA NITROGEN 7 MG/DL (9-23); CALCIUM LEVEL 8.1 MG/DL (8.5-10.1); CARBON DIOXIDE LEVEL 27 MMOL/L (20-31); CHLORIDE LEVEL 105 MMOL/L (98-107); CREATININE FOR GFR 0.57 MG/DL (0.55-1.30); GLOMERULAR FILTRATION RATE > 60.0 (>58); GLUCOSE, FASTING 137 MG/DL (60-100); POTASSIUM SERUM 3.4 MMOL/L (3.5-5.1); SODIUM LEVEL 137 MMOL/L (136-145); TOTAL PROTEIN 5.3 G/DL (5.7-8.2)
[2024-06-27] MEDS ORDERED: IPRATROPIUM 0.5MG/ALBUTEROL 2.5MG INH SOL UD 3ML (DUONEB) NEB PRN (06:35)
[2024-06-27] MEDS ORDERED: ALBUTEROL SULFATE 2.5MG/0.5ML INH NEB SOLN INH PRN (06:45)
[2024-06-27] MEDS: MIDODRINE 5 MG TAB JT SCH (07:46)
[2024-06-27] MEDS: oxyCODONE 5MG TAB JT PRN (07:53)
[2024-06-27] MEDS: ENOXAPARIN 40MG/0.4ML SYRINGE (J1650 PER 10MG) SC SCH (08:12)
[2024-06-27] MEDS: ONDANSETRON 4MG 2ML VIAL IV PRN (08:12)
[2024-06-27] MEDS: LEVETIRACETAM 500 MG/5 ML IV SCH (08:13)
[2024-06-27] MEDS: PANTOPRAZOLE 40MG VIAL IV SCH (08:13)
[2024-06-27] MEDS: diphenhydrAMINE 50MG/ML VIAL IV SCH (08:13)
[2024-06-27] MEDS ORDERED: [UNRECOGNIZED DRUG - NUTRITION] IV SCH (09:00)
[2024-06-27] MEDS: ROSUVASTATIN 10 MG TAB (CRESTOR) JT SCH (09:00)
[2024-06-27] MEDS ORDERED: POTASSIUM CHLORIDE 10MEQ SR TABLET PO ONE (09:50)
[2024-06-27] MEDS: PIPERACILLIN/TAZOBACTAM SOD 4.5 GM in D5W MINI-BAG PLUS 50 ML IV SCH (10:30)
[2024-06-27] MEDS ORDERED: VANCOMYCIN HCL 1,000 MG, VIAL MATE ADAPTER 1 EACH in D5W 250 ML IV SCH (11:05)
[2024-06-27] MEDS: VANCOMYCIN HCL 1,000 MG, VIAL MATE ADAPTER 1 EACH in D5W 250 ML IV ONE (12:39)
[2024-06-27] MEDS: POTASSIUM CHLORIDE 10% LIQ 20MEQ/15ML UDC PO ONE (12:40)
[2024-06-27] MEDS: VANCOMYCIN HCL 750 MG, VIAL MATE ADAPTER 1 EACH in D5W 250 ML IV ONE (13:55)
[2024-06-27] MEDS ORDERED: [UNRECOGNIZED DRUG - CODE] IV (18:28)
[2024-06-27] MEDS: diphenhydrAMINE 50MG/ML VIAL IV PRN (18:49)
[2024-06-27] MEDS ORDERED: VANCOMYCIN HCL 750 MG, VIAL MATE ADAPTER 1 EACH in D5W 250 ML IV SCH (20:00)
[2024-06-27] MEDS: VANCOMYCIN HCL 1,000 MG, VIAL MATE ADAPTER 1 EACH in D5W 250 ML IV SCH (20:30)
[2024-06-27] MEDS ORDERED: VANCOMYCIN HCL 500 MG in D5W MINI-BAG PLUS 100 ML IV SCH (21:00)
[2024-06-27] MEDS ORDERED: levETIRAcetam INJection 500 MG in D5W 100 ML IV SCH (21:00)
[2024-06-27] MEDS: levETIRAcetam INJection 500 MG in D5W MINI-BAG PLUS 100 ML IV SCH (21:41)
[2024-06-27] MEDS: RAMELTEON 8 MG TAB (ROZEREM) PO ONE (21:41)
[2024-06-28] VITALS (17 sets, daily range): BP systolic 92–124; BP diastolic 51–68; TEMP 97.5–102.1; O2SAT 18–97
[2024-06-28] MEDS: UNRESOLVED PATIENT OWN MED ORDER XX SCH (00:01)
[2024-06-28] MEDS ORDERED: FLUOXETINE 20 MG/5 ML PEG SCH (09:00)
[2024-06-28 11:15] LABS: BASO % 0.4 % (0.0-1.0); EOS # 0.1 10^3/uL (0.0-0.5); EOS % 2.6 % (0.0-3.0); HEMATOCRIT 26.5 % (36.0-47.0); HEMOGLOBIN 8.2 g/dl (12.0-15.5); LYMPH # 0.4 10^3/uL (1.5-5.0); LYMPH % 7.1 % (24.0-44.0); MEAN CORPUSCULAR HGB CONC 30.9 g/dl (32.0-36.5); MEAN CORPUSCULAR VOLUME 84.1 fl (80.0-96.0); MONO # 0.5 10^3/uL (0.0-0.8); MONO % 10.5 % (2.0-8.0); NEUTROPHILS % 78.4 % (36.0-66.0); PLATELET COUNT, AUTOMATED 265 10^3/uL (150-450); RED BLOOD COUNT 3.15 10^6/uL (4.00-5.40); WHITE BLOOD COUNT 5.1 10^3/uL (4.0-10.0)
[2024-06-28 11:19] LABS: ERYTHROCYTE SEDIMENTATION RATE 36 mm/hr (0-20)
[2024-06-28 11:40] LABS: ALBUMIN 2.5 G/DL (3.2-5.2); ALKALINE PHOSPHATASE 169 U/L (46-116); ALT/SGPT 33 U/L (7.0-40); AST/SGOT 26 U/L (<34); BILIRUBIN,TOTAL 1.2 MG/DL (0.3-1.2); BLOOD UREA NITROGEN 5 MG/DL (9-23); CALCIUM LEVEL 8.7 MG/DL (8.5-10.1); CARBON DIOXIDE LEVEL 26 MMOL/L (20-31); CHLORIDE LEVEL 108 MMOL/L (98-107); CREATININE FOR GFR 0.62 MG/DL (0.55-1.30); GLOMERULAR FILTRATION RATE > 60.0 (>58); GLUCOSE, FASTING 189 MG/DL (60-100); POTASSIUM SERUM 4.1 MMOL/L (3.5-5.1); SODIUM LEVEL 140 MMOL/L (136-145); TOTAL PROTEIN 5.3 G/DL (5.7-8.2)
[2024-06-28] MEDS: MIDODRINE 5 MG TAB PO ONE (14:00)
[2024-06-28] MEDS ORDERED: SODIUM CHLORIDE NASAL 0.65% SPRAY BTL (OCEAN) PRN (15:45)
[2024-06-28] MEDS: MIDODRINE 5 MG TAB JT SCH (16:41)
[2024-06-28] MEDS: NS 1,000 ML IV ONE (16:43)
[2024-06-28] MEDS: SODIUM CHLORIDE 0.9% INJ 10 ML SYR IV PRN (16:44)
[2024-06-28] MEDS: SODIUM CHLORIDE 0.9% NASAL GEL 15GM (AYR) SCH (17:00)
[2024-06-28] MEDS: NS 1,000 ML IV SCH (18:03)
[2024-06-28] MEDS: FLUoxetine 20MG CAP PEG SCH (19:12)
[2024-06-28] MEDS: TPN IV SCH (20:49)
[2024-06-28] MEDS: IBUPROFEN 100MG 5ML SUSP UDC DYE FREE PO ONE (21:49)
[2024-06-29] VITALS (8 sets, daily range): BP systolic 90–121; BP diastolic 45–65; TEMP 97.7–100.9; O2SAT 94–98
[2024-06-29 05:57] LABS: BASO % 0.4 % (0.0-1.0); EOS # 0.3 10^3/uL (0.0-0.5); EOS % 4.5 % (0.0-3.0); HEMATOCRIT 31.9 % (36.0-47.0); HEMOGLOBIN 9.8 g/dl (12.0-15.5); LYMPH # 0.7 10^3/uL (1.5-5.0); LYMPH % 12.8 % (24.0-44.0); MEAN CORPUSCULAR HEMOGLOBIN 26.4 pg (27.0-33.0); MEAN CORPUSCULAR HGB CONC 30.7 g/dl (32.0-36.5); MONO # 0.7 10^3/uL (0.0-0.8); MONO % 12.1 % (2.0-8.0); NEUTROPHILS # 3.8 10^3/uL (1.5-8.5); NEUTROPHILS % 68.9 % (36.0-66.0); PLATELET COUNT, AUTOMATED 289 10^3/uL (150-450); RED BLOOD COUNT 3.71 10^6/uL (4.00-5.40); WHITE BLOOD COUNT 5.6 10^3/uL (4.0-10.0)
[2024-06-29 06:27] LABS: ALBUMIN 2.5 G/DL (3.2-5.2); ALKALINE PHOSPHATASE 173 U/L (46-116); ALT/SGPT 39 U/L (7.0-40); AST/SGOT 32 U/L (<34); BILIRUBIN,TOTAL 1.4 MG/DL (0.3-1.2); BLOOD UREA NITROGEN 9 MG/DL (9-23); CALCIUM LEVEL 8.6 MG/DL (8.5-10.1); CARBON DIOXIDE LEVEL 29 MMOL/L (20-31); CHLORIDE LEVEL 106 MMOL/L (98-107); CREATININE FOR GFR 0.63 MG/DL (0.55-1.30); GLOMERULAR FILTRATION RATE > 60.0 (>58); GLUCOSE, FASTING 195 MG/DL (60-100); SODIUM LEVEL 139 MMOL/L (136-145); TOTAL PROTEIN 5.4 G/DL (5.7-8.2)
[2024-06-29] MEDS: SODIUM CHLORIDE 0.9% INJ 10 ML SYR IV SCH (08:36)
[2024-06-29] MEDS ORDERED: diphenhydrAMINE 50MG/ML VIAL IV PRN (10:15)
[2024-06-29] MEDS ORDERED: LORazepam 2 MG/ML 1ML VIAL IV PRN (11:00)
[2024-06-29] MEDS: LORazepam 2 MG/ML 1ML VIAL IV ONE (11:39)
[2024-06-29] MEDS: diphenhydrAMINE 50MG/ML VIAL IV STA (14:21)
[2024-06-29] MEDS: LORazepam 2 MG/ML 1ML VIAL IV STA (14:22)
[2024-06-29] MEDS: VANCOMYCIN HCL 750 MG, VIAL MATE ADAPTER 1 EACH in D5W 250 ML IV SCH (14:32)
[2024-06-29] MEDS: diphenhydrAMINE 50MG/ML VIAL IV ONE (14:32)
[2024-06-29] MEDS: ALTEPLASE 2MG/2ML VIAL XX ONE (15:49)
[2024-06-29] MEDS: zolPIDEM TARTRATE 5 MG TAB JT SCH (20:54)
[2024-06-30] VITALS (7 sets, daily range): BP systolic 100–125; BP diastolic 51–75; TEMP 97–99.2; O2SAT 92–97
[2024-06-30 06:30] LABS: BASO % 0.9 % (0.0-1.0); EOS # 0.4 10^3/uL (0.0-0.5); EOS % 8.2 % (0.0-3.0); HEMATOCRIT 34.4 % (36.0-47.0); HEMOGLOBIN 10.7 g/dl (12.0-15.5); LYMPH # 0.6 10^3/uL (1.5-5.0); LYMPH % 12.2 % (24.0-44.0); MEAN CORPUSCULAR HEMOGLOBIN 26.5 pg (27.0-33.0); MEAN CORPUSCULAR HGB CONC 31.1 g/dl (32.0-36.5); MEAN CORPUSCULAR VOLUME 85.1 fl (80.0-96.0); MONO # 0.4 10^3/uL (0.0-0.8); MONO % 8.4 % (2.0-8.0); NEUTROPHILS # 3.2 10^3/uL (1.5-8.5); NEUTROPHILS % 68.6 % (36.0-66.0); PLATELET COUNT, AUTOMATED 334 10^3/uL (150-450); RED BLOOD COUNT 4.04 10^6/uL (4.00-5.40); WHITE BLOOD COUNT 4.7 10^3/uL (4.0-10.0)
[2024-06-30 07:03] LABS: ALBUMIN 2.6 G/DL (3.2-5.2); ALKALINE PHOSPHATASE 179 U/L (46-116); ALT/SGPT 30 U/L (7.0-40); AST/SGOT 20 U/L (<34); BILIRUBIN,TOTAL 1.2 MG/DL (0.3-1.2); BLOOD UREA NITROGEN 6 MG/DL (9-23); CALCIUM LEVEL 8.9 MG/DL (8.5-10.1); CARBON DIOXIDE LEVEL 27 MMOL/L (20-31); CHLORIDE LEVEL 106 MMOL/L (98-107); CREATININE FOR GFR 0.74 MG/DL (0.55-1.30); GLOMERULAR FILTRATION RATE > 60.0 (>58); GLUCOSE, FASTING 120 MG/DL (60-100); POTASSIUM SERUM 4.6 MMOL/L (3.5-5.1); SODIUM LEVEL 139 MMOL/L (136-145); TOTAL PROTEIN 5.7 G/DL (5.7-8.2)
[2024-06-30] MEDS: LORazepam 0.5 MG TAB JT PRN (10:32)
[2024-07-01 04:00] VITALS: BP 114/54; TEMP 97.1; O2SAT 95
[2024-07-01 08:00] VITALS: BP 111/56; TEMP 98.6; O2SAT 96
[2024-07-01 12:00] VITALS: BP 108/55; TEMP 98.6; O2SAT 95
[2024-07-01 12:11] LABS: BASO % 0.5 % (0.0-1.0); EOS # 0.3 10^3/uL (0.0-0.5); EOS % 5.9 % (0.0-3.0); HEMATOCRIT 36.9 % (36.0-47.0); HEMOGLOBIN 11.7 g/dl (12.0-15.5); LYMPH # 0.9 10^3/uL (1.5-5.0); LYMPH % 15.8 % (24.0-44.0); MEAN CORPUSCULAR HGB CONC 31.7 g/dl (32.0-36.5); MEAN CORPUSCULAR VOLUME 85.2 fl (80.0-96.0); MONO # 0.4 10^3/uL (0.0-0.8); NEUTROPHILS # 3.9 10^3/uL (1.5-8.5); NEUTROPHILS % 69.5 % (36.0-66.0); PLATELET COUNT, AUTOMATED 429 10^3/uL (150-450); RED BLOOD COUNT 4.33 10^6/uL (4.00-5.40); WHITE BLOOD COUNT 5.6 10^3/uL (4.0-10.0)
[2024-07-01 12:37] LABS: VANCOMYCIN LEVEL TROUGH 17.6 UG/ML (10.0-20.0)
[2024-07-01 12:42] LABS: ALKALINE PHOSPHATASE 186 U/L (46-116); ALT/SGPT 26 U/L (7.0-40); AST/SGOT 13 U/L (<34); BILIRUBIN,TOTAL 0.7 MG/DL (0.3-1.2); BLOOD UREA NITROGEN 12 MG/DL (9-23); CARBON DIOXIDE LEVEL 28 MMOL/L (20-31); CHLORIDE LEVEL 104 MMOL/L (98-107); CREATININE FOR GFR 0.76 MG/DL (0.55-1.30); GLOMERULAR FILTRATION RATE > 60.0 (>58); GLUCOSE, FASTING 157 MG/DL (60-100); SODIUM LEVEL 138 MMOL/L (136-145); TOTAL PROTEIN 6.7 G/DL (5.7-8.2)
[2024-07-01 20:00] VITALS: BP 107/66; TEMP 98.1; O2SAT 94; O2SAT 95
[2024-07-01 22:32] LABS: URINE STREP PNEUMONIAE ANTIGEN NOT DETECTED (NOT DETECT)
[2024-07-02] VITALS (8 sets, daily range): BP systolic 88–119; BP diastolic 50–71; TEMP 97–98.1; O2SAT 90–98
[2024-07-02 09:20] LABS: BASO % 0.8 % (0.0-1.0); EOS # 0.4 10^3/uL (0.0-0.5); EOS % 7.5 % (0.0-3.0); HEMATOCRIT 38.4 % (36.0-47.0); LYMPH # 0.9 10^3/uL (1.5-5.0); LYMPH % 19.5 % (24.0-44.0); MEAN CORPUSCULAR HEMOGLOBIN 26.8 pg (27.0-33.0); MEAN CORPUSCULAR HGB CONC 31.3 g/dl (32.0-36.5); MEAN CORPUSCULAR VOLUME 85.7 fl (80.0-96.0); MONO # 0.4 10^3/uL (0.0-0.8); MONO % 8.1 % (2.0-8.0); PLATELET COUNT, AUTOMATED 415 10^3/uL (150-450); RED BLOOD COUNT 4.48 10^6/uL (4.00-5.40); WHITE BLOOD COUNT 4.8 10^3/uL (4.0-10.0)
[2024-07-02 09:41] LABS: ALBUMIN 3.1 G/DL (3.2-5.2); ALKALINE PHOSPHATASE 196 U/L (46-116); ALT/SGPT 21 U/L (7.0-40); AST/SGOT 15 U/L (<34); BILIRUBIN,TOTAL 0.8 MG/DL (0.3-1.2); BLOOD UREA NITROGEN 7 MG/DL (9-23); CALCIUM LEVEL 10.3 MG/DL (8.5-10.1); CARBON DIOXIDE LEVEL 28 MMOL/L (20-31); CHLORIDE LEVEL 105 MMOL/L (98-107); CREATININE FOR GFR 0.95 MG/DL (0.55-1.30); GLOMERULAR FILTRATION RATE > 60.0 (>58); GLUCOSE, FASTING 112 MG/DL (60-100); POTASSIUM SERUM 4.6 MMOL/L (3.5-5.1); SODIUM LEVEL 139 MMOL/L (136-145); TOTAL PROTEIN 6.6 G/DL (5.7-8.2)
[2024-07-02] MEDS: VANCOMYCIN HCL 1,000 MG, VIAL MATE ADAPTER 1 EACH in D5W 250 ML IV SCH (14:42)
[2024-07-02] MEDS: NS 1,000 ML IV SCH (17:51)
[2024-07-03] VITALS (8 sets, daily range): BP systolic 99–116; BP diastolic 8–69; TEMP 97.1–99.1; O2SAT 92–97
[2024-07-03 06:43] LABS: BASO % 0.6 % (0.0-1.0); EOS # 0.4 10^3/uL (0.0-0.5); EOS % 6.9 % (0.0-3.0); HEMATOCRIT 37.7 % (36.0-47.0); HEMOGLOBIN 11.8 g/dl (12.0-15.5); LYMPH # 1.1 10^3/uL (1.5-5.0); LYMPH % 20.7 % (24.0-44.0); MEAN CORPUSCULAR HEMOGLOBIN 26.6 pg (27.0-33.0); MEAN CORPUSCULAR HGB CONC 31.3 g/dl (32.0-36.5); MEAN CORPUSCULAR VOLUME 84.9 fl (80.0-96.0); MONO # 0.4 10^3/uL (0.0-0.8); MONO % 6.9 % (2.0-8.0); NEUTROPHILS # 3.4 10^3/uL (1.5-8.5); NEUTROPHILS % 63.6 % (36.0-66.0); PLATELET COUNT, AUTOMATED 457 10^3/uL (150-450); RED BLOOD COUNT 4.44 10^6/uL (4.00-5.40); WHITE BLOOD COUNT 5.4 10^3/uL (4.0-10.0)
[2024-07-03 14:32] LABS: VANCOMYCIN LEVEL TROUGH 17.8 UG/ML (10.0-20.0)
[2024-07-03 14:33] LABS: CALCIUM LEVEL 9.5 MG/DL (8.5-10.1); CREATININE FOR GFR 1.06 MG/DL (0.55-1.30); GLOMERULAR FILTRATION RATE 59.7 (>58); POTASSIUM SERUM 4.6 MMOL/L (3.5-5.1)
[2024-07-03 14:45] LABS: PROCALCITONIN 0.32 ng/ml
[2024-07-04 03:52] VITALS: BP 82/44; TEMP 96; O2SAT 94
[2024-07-04 04:49] LABS: BASO % 0.5 % (0.0-1.0); EOS # 0.2 10^3/uL (0.0-0.5); EOS % 3.8 % (0.0-3.0); HEMATOCRIT 33.9 % (36.0-47.0); HEMOGLOBIN 10.7 g/dl (12.0-15.5); LYMPH # 1.1 10^3/uL (1.5-5.0); MEAN CORPUSCULAR HEMOGLOBIN 27.2 pg (27.0-33.0); MEAN CORPUSCULAR HGB CONC 31.6 g/dl (32.0-36.5); MEAN CORPUSCULAR VOLUME 86.3 fl (80.0-96.0); MONO # 0.5 10^3/uL (0.0-0.8); MONO % 7.2 % (2.0-8.0); NEUTROPHILS # 4.4 10^3/uL (1.5-8.5); NEUTROPHILS % 69.4 % (36.0-66.0); PLATELET COUNT, AUTOMATED 434 10^3/uL (150-450); RED BLOOD COUNT 3.93 10^6/uL (4.00-5.40); WHITE BLOOD COUNT 6.4 10^3/uL (4.0-10.0)
[2024-07-04 04:56] LABS: ERYTHROCYTE SEDIMENTATION RATE 44 mm/hr (0-20)
[2024-07-04] MEDS: LR 1,000 ML IV ONE ×2 (05:06→05:56)
[2024-07-04 05:25] LABS: ALBUMIN 2.8 G/DL (3.2-5.2); ALKALINE PHOSPHATASE 133 U/L (46-116); ALT/SGPT 14 U/L (7.0-40); AST/SGOT 10 U/L (<34); BILIRUBIN,TOTAL 0.4 MG/DL (0.3-1.2); BLOOD UREA NITROGEN 14 MG/DL (9-23); CALCIUM LEVEL 9.5 MG/DL (8.5-10.1); CARBON DIOXIDE LEVEL 31 MMOL/L (20-31); CHLORIDE LEVEL 107 MMOL/L (98-107); CREATININE FOR GFR 0.97 MG/DL (0.55-1.30); GLOMERULAR FILTRATION RATE > 60.0 (>58); GLUCOSE, FASTING 112 MG/DL (60-100); MAGNESIUM LEVEL 2.6 MG/DL (1.8-2.4); POTASSIUM SERUM 4.4 MMOL/L (3.5-5.1); SODIUM LEVEL 141 MMOL/L (136-145)
[2024-07-04 05:49] VITALS: BP 86/50
[2024-07-04 07:10] VITALS: BP 100/64
[2024-07-04 08:00] VITALS: TEMP 97.4; O2SAT 93
[2024-07-04] MEDS: VANCOMYCIN HCL 750 MG, VIAL MATE ADAPTER 1 EACH in D5W 250 ML IV SCH (08:16)
[2024-07-04 09:38] VITALS: O2SAT 96
[2024-07-04] MEDS ORDERED: MIDO5TA JT (10:21)
== END 2024-07-04 12:10 | disposition home or self-care (01) | DRG 137 ==
LOC: M ED 22:24 → EEVIPCON 06-27 04:56 → M ED INP 06-27 04:56 → M MSPAV 06-27 10:48
PROVIDERS: ADMIT Student in an Organized Health Care Education/Training Program; ATTEND Student in an Organized Health Care Education/Training Program
DX: J15.69 Pneumonia due to other Gram-negative bacteria (principal); J96.01 Acute respiratory failure with hypoxia; K31.1 Adult hypertrophic pyloric stenosis; K91.2 Postsurgical malabsorption, not elsewhere classified; D68.59 Other primary thrombophilia; G40.209 Localization-related (focal) (partial) symptomatic epilepsy and epileptic syndromes with complex partial seizures, not intractable, without status epilepticus; F11.20 Opioid dependence, uncomplicated; K31.84 Gastroparesis; Z93.4 Other artificial openings of gastrointestinal tract status; K76.0 Fatty (change of) liver, not elsewhere classified; K21.9 Gastro-esophageal reflux disease without esophagitis; G89.29 Other chronic pain; M96.1 Postlaminectomy syndrome, not elsewhere classified; J45.909 Unspecified asthma, uncomplicated; F41.9 Anxiety disorder, unspecified; F32.A Depression, unspecified; D50.0 Iron deficiency anemia secondary to blood loss (chronic); K90.0 Celiac disease; E78.2 Mixed hyperlipidemia; E55.9 Vitamin D deficiency, unspecified; Z86.718 Personal history of other venous thrombosis and embolism; Z79.899 Other long term (current) drug therapy; Z88.2 Allergy status to sulfonamides; Z88.5 Allergy status to narcotic agent; Z88.6 Allergy status to analgesic agent; Z88.8 Allergy status to other drugs, medicaments and biological substances; Z91.041 Radiographic dye allergy status; Z91.018 Allergy to other foods; G47.00 Insomnia, unspecified

== ENCOUNTER 2024-07-07 13:18 | Emergency (ER) | payer BC ==
[~2024-07-07 13:18] MED LIST changes: +DIPH50CA IV
[2024-07-07] MEDS: SODIUM CHLORIDE 0.9% INJ 10 ML SYR IV PRN (13:56)
[2024-07-07 14:12] LABS: BASO % 0.6 % (0.0-1.0); EOS % 0.2 % (0.0-3.0); HEMATOCRIT 39.6 % (36.0-47.0); HEMOGLOBIN 12.9 g/dl (12.0-15.5); LYMPH # 0.7 10^3/uL (1.5-5.0); LYMPH % 13.8 % (24.0-44.0); MEAN CORPUSCULAR HGB CONC 32.6 g/dl (32.0-36.5); MONO # 0.1 10^3/uL (0.0-0.8); NEUTROPHILS # 3.9 10^3/uL (1.5-8.5); NEUTROPHILS % 82.2 % (36.0-66.0); PLATELET COUNT, AUTOMATED 521 10^3/uL (150-450); RED BLOOD COUNT 4.77 10^6/uL (4.00-5.40); WHITE BLOOD COUNT 4.7 10^3/uL (4.0-10.0)
[2024-07-07] MEDS ORDERED: ACET-683 PO (14:27)
[2024-07-07 14:39] LABS: CK-MB VALUE MASS < 1.0 NG/ML (<3.6)
[2024-07-07 14:40] LABS: LIPASE 29 U/L (12-53)
[2024-07-07 14:41] LABS: CPK CREATINE PHOSPHOKINASE 16 U/L (34-145); MB/CK RELATIVE INDEX 6.25 (< OR =4)
[2024-07-07 14:43] LABS: FREE T4 0.88 NG/DL (0.89-1.76); PROLACTIN 1.68 NG/ML; THYROID STIMULATING HORMONE 0.133 uIU/ML (0.55-4.78)
[2024-07-07 14:45] LABS: ALBUMIN 3.7 G/DL (3.2-5.2); ALKALINE PHOSPHATASE 137 U/L (46-116); ALT/SGPT 13 U/L (7.0-40); AST/SGOT 17 U/L (<34); BILIRUBIN,DIRECT 0.2 MG/DL (<0.4); BILIRUBIN,TOTAL 0.5 MG/DL (0.3-1.2); BLOOD UREA NITROGEN 12 MG/DL (9-23); CALCIUM LEVEL 11.3 MG/DL (8.5-10.1); CARBON DIOXIDE LEVEL 24 MMOL/L (20-31); CHLORIDE LEVEL 107 MMOL/L (98-107); CREATININE FOR GFR 0.66 MG/DL (0.55-1.30); GLOMERULAR FILTRATION RATE > 60.0 (>58); GLUCOSE, FASTING 156 MG/DL (60-100); POTASSIUM SERUM 4.1 MMOL/L (3.5-5.1); SODIUM LEVEL 140 MMOL/L (136-145); TOTAL PROTEIN 7.3 G/DL (5.7-8.2)
[2024-07-07] MEDS ORDERED: HOME MED LIST COMPLETE! XX SCH (14:50)
[2024-07-07] MEDS: MORPHINE 2 MG/ML 1ML VIAL IV ONE (14:59)
[2024-07-07] MEDS: METOCLOPRAMIDE INJ 10MG/2ML VIAL IV ONE (15:00)
[2024-07-07] MEDS: diphenhydrAMINE 50MG/ML VIAL IV STA (15:00)
[2024-07-07] MEDS: LORazepam 2 MG/ML 1ML VIAL IV PRN (16:38)
[2024-07-07 16:59] LABS: CK-MB VALUE MASS < 1.0 NG/ML (<3.6)
[2024-07-07 17:00] LABS: CPK CREATINE PHOSPHOKINASE 17 U/L (34-145); MB/CK RELATIVE INDEX 5.88 (< OR =4)
[2024-07-07 17:48] VITALS: O2SAT 97
[2024-07-07 18:01] LABS: D-DIMER QUANT 1.07 ug/mL (<0.5); INR 1.09; PARTIAL THROMBOPLASTIN TIME 27.3 SECONDS (24.8-34.2); PROTHROMBIN TIME 13.8 SECONDS (12.5-14.5)
[2024-07-07] MEDS ORDERED: LORazepam 0.5 MG TAB JT PRN (18:10)
[2024-07-07] MEDS ORDERED: diphenhydrAMINE 50MG/ML VIAL IV PRN (18:10)
[2024-07-07] MEDS ORDERED: ACETAMINOPHEN 500 MG TAB PO PRN (18:10)
[2024-07-07] MEDS: MORPHINE 4 MG/ML 1ML VIAL IV PRN (18:24)
[2024-07-07] MEDS: NS 1,000 ML IV ONE (19:00)
[2024-07-07 20:37] LABS: TOTAL 25(OH) VITAMIN D 12.6 NG/ML (20.0-100.0)
[2024-07-07 21:44] LABS: PTH INTACT 50.7 PG/ML (18.5-88.0)
[2024-07-07] MEDS: PANTOPRAZOLE 40MG VIAL IV SCH (21:45)
[2024-07-07] MEDS: ENOXAPARIN 80MG/0.8ML SYRINGE (J1650 PER 10MG) SC ONE (21:45)
[2024-07-07] MEDS: zolPIDEM TARTRATE 5 MG TAB JT SCH (21:45)
[2024-07-07] MEDS: LEVETIRACETAM 500 MG/5 ML IV SCH (21:45)
[2024-07-07] MEDS: diphenhydrAMINE 50MG/ML VIAL IV SCH (21:45)
[2024-07-07] MEDS: oxyCODONE 5MG TAB JT PRN (21:46)
[2024-07-08 05:00] VITALS: TEMP 97
[2024-07-08] MEDS: ENOXAPARIN 40MG/0.4ML SYRINGE (J1650 PER 10MG) SC ONE (08:12)
[2024-07-08] MEDS: ROSUVASTATIN 10 MG TAB (CRESTOR) JT SCH (08:12)
[2024-07-08] MEDS: MIDODRINE 5 MG TAB JT SCH (08:12)
[2024-07-08] MEDS: SODIUM CHLORIDE 0.9% INJ 10 ML SYR IV SCH (08:13)
[2024-07-08] MEDS ORDERED: ENOXAPARIN 40MG/0.4ML SYRINGE (J1650 PER 10MG) SC SCH (09:00)
[2024-07-08] MEDS: LORazepam 2 MG/ML 1ML VIAL IV ONE (09:44)
[2024-07-08 11:28] VITALS: BP 114/60; O2SAT 94
[2024-07-09] MEDS ORDERED: [UNRECOGNIZED DRUG - NUTRITION] IV SCH (09:00)
[2024-07-09 16:06] LABS: T P ELECTROPHORESIS SO 7.1 g/dL (6.1-8.1)
== END 2024-07-08 14:30 | disposition home or self-care (01) ==
LOC: M ED 13:18
DX: R06.00 Dyspnea, unspecified (principal); R00.0 Tachycardia, unspecified; G40.909 Epilepsy, unspecified, not intractable, without status epilepticus; K21.9 Gastro-esophageal reflux disease without esophagitis; Z88.2 Allergy status to sulfonamides; Z88.8 Allergy status to other drugs, medicaments and biological substances; Z91.018 Allergy to other foods; Z91.041 Radiographic dye allergy status; Z79.1 Long term (current) use of non-steroidal anti-inflammatories (NSAID); Z79.899 Other long term (current) drug therapy
CPT/HCPCS: 70450; 71045; 71250; 74176; 78582; 80048; 80076; 80177; 82140; 82306; 82330; 82550; 82553; 83605; 83690; 83735; 83880; 83970; 84146; 84155; 84165; 84439; 84443; 84484; 85014; 85018; 85025; 85379; 85610; 85730; 87486; 87581; 87633; 87641; 87798; 93005; 93041; 93306; 93970; 94760; 96361; 96372; 96374; 96375; 96376; 97161; 99285; A9540; A9567; J1200; J1642; J1650; J1953; J2060; J2470; J2765

== ENCOUNTER 2024-07-14 15:29 | Inpatient (IN) | payer BC ==
[~2024-07-14] VITALS: Ht 170.2 cm; Wt 85.7 kg
[2024-07-14 18:40] LABS: HEMATOCRIT 41.8 % (36.0-47.0); HEMOGLOBIN 13.1 g/dl (12.0-15.5); MEAN CORPUSCULAR HEMOGLOBIN 26.7 pg (27.0-33.0); MEAN CORPUSCULAR HGB CONC 31.3 g/dl (32.0-36.5); MEAN CORPUSCULAR VOLUME 85.1 fl (80.0-96.0); PLATELET COUNT, AUTOMATED 267 10^3/uL (150-450); RED BLOOD COUNT 4.91 10^6/uL (4.00-5.40); WHITE BLOOD COUNT 12.6 10^3/uL (4.0-10.0)
[2024-07-14 19:03] LABS: CK-MB VALUE MASS < 1.0 NG/ML (<3.6)
[2024-07-14 19:05] LABS: BLOOD UREA NITROGEN 8 MG/DL (9-23); CALCIUM LEVEL 10.7 MG/DL (8.5-10.1); CARBON DIOXIDE LEVEL 27 MMOL/L (20-31); CHLORIDE LEVEL 100 MMOL/L (98-107); CREATININE FOR GFR 0.83 MG/DL (0.55-1.30); GLOMERULAR FILTRATION RATE > 60.0 (>58); GLUCOSE, FASTING 189 MG/DL (60-100); POTASSIUM SERUM 3.7 MMOL/L (3.5-5.1); SODIUM LEVEL 138 MMOL/L (136-145)
[2024-07-14 19:06] LABS: CPK CREATINE PHOSPHOKINASE 28 U/L (34-145); MB/CK RELATIVE INDEX 3.57 (< OR =4)
[2024-07-14 19:09] LABS: BASOPHILS 1 % (0-1); MONOCYTES 4 % (0-5); NEUTROPHILS 81 % (28-66)
[2024-07-14 19:10] LABS: ANISOCYTOSIS 1+; PLATELET ESTIMATE NORMAL (NORMAL)
[2024-07-14] MEDS: ACETAMINOPHEN 500 MG TAB PO ONE (20:25)
[2024-07-14] MEDS: NS 2,350 ML in IV 1 EA IV ONE (21:08)
[2024-07-14] MEDS: PIPERACILLIN/TAZOBACTAM SOD 3.375 GM in D5W MINI-BAG PLUS 50 ML IV ONE (21:08)
[2024-07-14] MEDS: diphenhydrAMINE 50MG/ML VIAL IV ONE (21:08)
[2024-07-14] MEDS: ACETAMINOPHEN *IV* 1,000 MG in IV 1 EA IV ONE (21:34)
[2024-07-14 22:10] LABS: CK-MB VALUE MASS < 1.0 NG/ML (<3.6)
[2024-07-14 22:12] LABS: CPK CREATINE PHOSPHOKINASE < 15 U/L (34-145)
[2024-07-14] MEDS ORDERED: ALBU8.5H INH (23:04)
[2024-07-14] MEDS ORDERED: HOME MED LIST COMPLETE! XX SCH (23:05)
[2024-07-14] MEDS ORDERED: D5W/0.45% SODIUM CHLORIDE 1,000 ML IV SCH (23:55)
[2024-07-15] VITALS (7 sets, daily range): BP systolic 72–121; BP diastolic 38–68; TEMP 97.2; O2SAT 96–97
[2024-07-15] MEDS ORDERED: LORazepam 0.5 MG TAB JT PRN
[2024-07-15] MEDS ORDERED: GLUCOSE 4 GM CHEW PO PRN (00:10)
[2024-07-15] MEDS ORDERED: DEXTROSE 50% 50ML SYRINGE IV PRN (00:10)
[2024-07-15] MEDS ORDERED: GLUCAGON INJ 1MG VIAL SC PRN (00:10)
[2024-07-15] MEDS: INSULIN LISPRO (NovoLOG) PER UNIT SC SCH (01:04)
[2024-07-15] MEDS: VANCOMYCIN HCL 750 MG, VIAL MATE ADAPTER 1 EACH in D5W 250 ML IV ONE ×2 (01:05→02:21)
[2024-07-15 01:07] LABS: AMPHETAMINES LEVEL URINE NEGATIVE (NEGATIVE); BARBITURATES URINE NEGATIVE (NEGATIVE); BENZODIAZEPINES URINE NEGATIVE (NEGATIVE); CANNABINOIDS URINE NEGATIVE (NEGATIVE); COCAINE METABOLITE URINE NEGATIVE (NEGATIVE); METHADONE URINE NEGATIVE (NEGATIVE); PHENCYCLIDINE URINE NEGATIVE (NEGATIVE)
[2024-07-15 01:08] LABS: OPIATES URINE POSITIVE (NEGATIVE)
[2024-07-15 01:08] LABS: PROCALCITONIN >50.00 ng/ml
[2024-07-15] MEDS: MORPHINE 2 MG/ML 1ML VIAL IV PRN (02:03)
[2024-07-15] MEDS: LR 1,000 ML IV ONE ×2 (02:21→21:34)
[2024-07-15] MEDS: HYDROCORTISONE 100MG/2ML VIAL IV ONE (03:34)
[2024-07-15] MEDS: PIPERACILLIN/TAZOBACTAM SOD 3.375 GM in D5W MINI-BAG PLUS 50 ML IV SCH (03:35)
[2024-07-15] MEDS: NOREPINEPHRINE 4MG IN D5 250ML 4 MG in IV 1 EA IV SCH (04:01)
[2024-07-15] MEDS: NS 1,000 ML IV SCH (04:01)
[2024-07-15] MEDS: AZITHROMYCIN INJ 500 MG, VIAL MATE ADAPTER 1 EACH in NS 250 ML IV SCH (05:29)
[2024-07-15 06:42] LABS: HEMATOCRIT 35.3 % (36.0-47.0); HEMOGLOBIN 11.6 g/dl (12.0-15.5); MEAN CORPUSCULAR HEMOGLOBIN 27.7 pg (27.0-33.0); MEAN CORPUSCULAR HGB CONC 32.9 g/dl (32.0-36.5); MEAN CORPUSCULAR VOLUME 84.2 fl (80.0-96.0); PLATELET COUNT, AUTOMATED 204 10^3/uL (150-450); RED BLOOD COUNT 4.19 10^6/uL (4.00-5.40); WHITE BLOOD COUNT 22.8 10^3/uL (4.0-10.0)
[2024-07-15 07:22] LABS: BLOOD UREA NITROGEN 12 MG/DL (9-23); CALCIUM LEVEL 9.1 MG/DL (8.5-10.1); CARBON DIOXIDE LEVEL 22 MMOL/L (20-31); CHLORIDE LEVEL 111 MMOL/L (98-107); CREATININE FOR GFR 0.67 MG/DL (0.55-1.30); GLOMERULAR FILTRATION RATE > 60.0 (>58); GLUCOSE, FASTING 222 MG/DL (60-100); POTASSIUM SERUM 3.3 MMOL/L (3.5-5.1); SODIUM LEVEL 144 MMOL/L (136-145)
[2024-07-15] MEDS: VANCOMYCIN HCL 750 MG, VIAL MATE ADAPTER 1 EACH in D5W 250 ML IV SCH ×2 (07:55→18:28)
[2024-07-15] MEDS: PANTOPRAZOLE 40MG VIAL IV SCH (07:57)
[2024-07-15] MEDS: MIDODRINE 5 MG TAB JT SCH (07:59)
[2024-07-15] MEDS: NORCO, ANEXSIA 5/325MG TABLET (HYDROcodone/ACETAMINOPHEN) PO PRN (08:00)
[2024-07-15] MEDS ORDERED: LEVETIRACETAM 500 MG/5 ML IV SCH (09:00)
[2024-07-15] MEDS: ROSUVASTATIN 10 MG TAB (CRESTOR) JT SCH (09:09)
[2024-07-15] MEDS: ENOXAPARIN 40MG/0.4ML SYRINGE (J1650 PER 10MG) SC SCH (09:09)
[2024-07-15] MEDS: levETIRAcetam INJection 500 MG in D5W MINI-BAG PLUS 100 ML IV SCH (09:09)
[2024-07-15] MEDS: POTASSIUM CHLORIDE 10% LIQ 20MEQ/15ML UDC PO ONE ×2 (13:13→17:24)
[2024-07-15] MEDS: diphenhydrAMINE 50MG/ML VIAL IV ONE (13:13)
[2024-07-15] MEDS ORDERED: ENTER DRUG NAME HERE (PATIENT'S OWN MED) IV SCH (18:55)
[2024-07-15] MEDS ORDERED: KCL 10MEQ/100ML SWI (KRUN) 10 MEQ in IV 1 EA IV SCH (19:00)
[2024-07-15] MEDS: TPN IV SCH (20:20)
[2024-07-15] MEDS: HYDROCORTISONE 100MG/2ML VIAL IV SCH (21:44)
[2024-07-15] MEDS: ONDANSETRON 4MG 2ML VIAL IV ONE (22:30)
[2024-07-15] MEDS: zolPIDEM TARTRATE 5 MG TAB PO ONE (22:47)
[2024-07-15] MEDS: MEROPENEM INJ 1 GM in IV 1 EA IV SCH (22:49)
[2024-07-16] VITALS (8 sets, daily range): BP systolic 117–156; BP diastolic 55–76; TEMP 96.8–97.6; O2SAT 95–98
[2024-07-16] MEDS: SODIUM CHLORIDE 0.9% INJ 10 ML SYR IV SCH (10:11)
[2024-07-16 11:25] LABS: HEMATOCRIT 31.9 % (36.0-47.0); MEAN CORPUSCULAR HEMOGLOBIN 27.3 pg (27.0-33.0); MEAN CORPUSCULAR HGB CONC 31.3 g/dl (32.0-36.5); MEAN CORPUSCULAR VOLUME 87.2 fl (80.0-96.0); PLATELET COUNT, AUTOMATED 113 10^3/uL (150-450); RED BLOOD COUNT 3.66 10^6/uL (4.00-5.40); WHITE BLOOD COUNT 16.7 10^3/uL (4.0-10.0)
[2024-07-16 12:26] LABS: BLOOD UREA NITROGEN 14 MG/DL (9-23); CALCIUM LEVEL 8.9 MG/DL (8.5-10.1); CARBON DIOXIDE LEVEL 26 MMOL/L (20-31); CHLORIDE LEVEL 116 MMOL/L (98-107); CREATININE FOR GFR 0.57 MG/DL (0.55-1.30); GLOMERULAR FILTRATION RATE > 60.0 (>58); GLUCOSE, FASTING 177 MG/DL (60-100); MAGNESIUM LEVEL 2.1 MG/DL (1.8-2.4); POTASSIUM SERUM 4.2 MMOL/L (3.5-5.1); SODIUM LEVEL 146 MMOL/L (136-145)
[2024-07-16] MEDS: ONDANSETRON 4MG 2ML VIAL IV PRN (14:55)
[2024-07-16] MEDS: diphenhydrAMINE 50MG/ML VIAL IV PRN (14:55)
[2024-07-16 18:39] LABS: HEMATOCRIT 32.1 % (36.0-47.0); HEMOGLOBIN 9.8 g/dl (12.0-15.5); MEAN CORPUSCULAR HEMOGLOBIN 26.8 pg (27.0-33.0); MEAN CORPUSCULAR HGB CONC 30.5 g/dl (32.0-36.5); MEAN CORPUSCULAR VOLUME 87.9 fl (80.0-96.0); PLATELET COUNT, AUTOMATED 118 10^3/uL (150-450); RED BLOOD COUNT 3.65 10^6/uL (4.00-5.40); WHITE BLOOD COUNT 19.4 10^3/uL (4.0-10.0)
[2024-07-16 19:02] LABS: BLOOD UREA NITROGEN 14 MG/DL (9-23); CALCIUM LEVEL 8.8 MG/DL (8.5-10.1); CARBON DIOXIDE LEVEL 25 MMOL/L (20-31); CHLORIDE LEVEL 112 MMOL/L (98-107); CREATININE FOR GFR 0.69 MG/DL (0.55-1.30); GLOMERULAR FILTRATION RATE > 60.0 (>58); GLUCOSE, FASTING 154 MG/DL (60-100); POTASSIUM SERUM 4.3 MMOL/L (3.5-5.1); SODIUM LEVEL 142 MMOL/L (136-145)
[2024-07-16] MEDS: zolPIDEM TARTRATE 5 MG TAB PO ONE (20:38)
[2024-07-16] MEDS: IPRATROPIUM 0.5MG/ALBUTEROL 2.5MG INH SOL UD 3ML (DUONEB) NEB ONE (22:44)
[2024-07-17 03:06] VITALS: BP 140/67; TEMP 97.4; O2SAT 96
[2024-07-17 06:31] LABS: HEMATOCRIT 31.1 % (36.0-47.0); HEMOGLOBIN 9.6 g/dl (12.0-15.5); MEAN CORPUSCULAR HEMOGLOBIN 27.3 pg (27.0-33.0); MEAN CORPUSCULAR HGB CONC 30.9 g/dl (32.0-36.5); MEAN CORPUSCULAR VOLUME 88.4 fl (80.0-96.0); PLATELET COUNT, AUTOMATED 110 10^3/uL (150-450); RED BLOOD COUNT 3.52 10^6/uL (4.00-5.40); WHITE BLOOD COUNT 17.4 10^3/uL (4.0-10.0)
[2024-07-17 06:52] LABS: BLOOD UREA NITROGEN 12 MG/DL (9-23); CALCIUM LEVEL 9.1 MG/DL (8.5-10.1); CARBON DIOXIDE LEVEL 25 MMOL/L (20-31); CHLORIDE LEVEL 114 MMOL/L (98-107); CREATININE FOR GFR 0.67 MG/DL (0.55-1.30); GLOMERULAR FILTRATION RATE > 60.0 (>58); GLUCOSE, FASTING 181 MG/DL (60-100); POTASSIUM SERUM 4.2 MMOL/L (3.5-5.1); SODIUM LEVEL 143 MMOL/L (136-145)
[2024-07-17 08:01] VITALS: BP 163/81; TEMP 98.1; O2SAT 97
[2024-07-17] MEDS: HYDROMORPHONE HCL 0.5 MG/ 0.5 ML SYRINGE IV ONE (09:13)
[2024-07-17] MEDS: MAALOX 30 ML SUSP *UDC PEG ONE (10:00)
[2024-07-17] MEDS: LORazepam 2 MG/ML 1ML VIAL IV ONE (11:13)
[2024-07-17 12:43] VITALS: BP 149/72; TEMP 97.3; O2SAT 97
[2024-07-17 13:45] LABS: LIPASE 27 U/L (12-53)
[2024-07-17 13:46] LABS: CPK CREATINE PHOSPHOKINASE < 15 U/L (34-145)
[2024-07-17 13:47] LABS: ALBUMIN 2.7 G/DL (3.2-5.2); ALKALINE PHOSPHATASE 203 U/L (46-116); ALT/SGPT 24 U/L (7.0-40); AST/SGOT 17 U/L (<34); BILIRUBIN,DIRECT 0.3 MG/DL (<0.4); BILIRUBIN,TOTAL 0.5 MG/DL (0.3-1.2); CK-MB VALUE MASS < 1.0 NG/ML (<3.6); TOTAL PROTEIN 5.4 G/DL (5.7-8.2)
[2024-07-17 15:38] VITALS: BP 121/63; TEMP 97.5; O2SAT 95
[2024-07-17] MEDS: MIDODRINE 2.5 MG TAB PO SCH (15:42)
[2024-07-17] MEDS: TPN IV SCH (17:06)
[2024-07-17 20:48] VITALS: BP 130/68; TEMP 97.4; O2SAT 92
[2024-07-17] MEDS: zolPIDEM TARTRATE 5 MG TAB PO ONE (21:26)
[2024-07-17 23:11] VITALS: BP 120/64; TEMP 97; O2SAT 97
[2024-07-18 03:19] VITALS: BP 147/66; TEMP 97.4; O2SAT 96
[2024-07-18 05:33] LABS: HEMATOCRIT 29.8 % (36.0-47.0); HEMOGLOBIN 9.2 g/dl (12.0-15.5); MEAN CORPUSCULAR HEMOGLOBIN 27.1 pg (27.0-33.0); MEAN CORPUSCULAR HGB CONC 30.9 g/dl (32.0-36.5); MEAN CORPUSCULAR VOLUME 87.9 fl (80.0-96.0); PLATELET COUNT, AUTOMATED 124 10^3/uL (150-450); RED BLOOD COUNT 3.39 10^6/uL (4.00-5.40); WHITE BLOOD COUNT 14.9 10^3/uL (4.0-10.0)
[2024-07-18 06:03] LABS: BLOOD UREA NITROGEN 13 MG/DL (9-23); CALCIUM LEVEL 8.1 MG/DL (8.5-10.1); CARBON DIOXIDE LEVEL 26 MMOL/L (20-31); CHLORIDE LEVEL 110 MMOL/L (98-107); CREATININE FOR GFR 0.58 MG/DL (0.55-1.30); GLOMERULAR FILTRATION RATE > 60.0 (>58); GLUCOSE, FASTING 256 MG/DL (60-100); POTASSIUM SERUM 3.8 MMOL/L (3.5-5.1); SODIUM LEVEL 142 MMOL/L (136-145)
[2024-07-18 08:00] VITALS: BP 135/75; TEMP 97.4; O2SAT 97
[2024-07-18 12:00] VITALS: BP 144/72; TEMP 96.5; O2SAT 97
[2024-07-18] MEDS ORDERED: NORCO, ANEXSIA 5/325MG TABLET (HYDROcodone/ACETAMINOPHEN) PO PRN (12:20)
[2024-07-18 16:00] VITALS: BP 117/55; TEMP 97; O2SAT 97
[2024-07-18] MEDS: oxyCODONE 5MG TAB PO PRN (17:02)
[2024-07-18 19:50] VITALS: BP 138/63; TEMP 97.2; O2SAT 95
[2024-07-18] MEDS: cefTRIAXone SOD 2 GM in D5W MINI-BAG PLUS 50 ML IV SCH (21:03)
[2024-07-18] MEDS: zolPIDEM TARTRATE 5 MG TAB PO ONE (21:09)
[2024-07-18 23:57] VITALS: BP 147/69; TEMP 97.3; O2SAT 95
[2024-07-19] VITALS (7 sets, daily range): BP systolic 124–140; BP diastolic 63–90; TEMP 96.7–97.3; O2SAT 91–95
[2024-07-19 07:18] LABS: HEMATOCRIT 30.7 % (36.0-47.0); HEMOGLOBIN 9.3 g/dl (12.0-15.5); MEAN CORPUSCULAR HEMOGLOBIN 26.6 pg (27.0-33.0); MEAN CORPUSCULAR HGB CONC 30.3 g/dl (32.0-36.5); PLATELET COUNT, AUTOMATED 141 10^3/uL (150-450); RED BLOOD COUNT 3.49 10^6/uL (4.00-5.40); WHITE BLOOD COUNT 9.7 10^3/uL (4.0-10.0)
[2024-07-19 07:49] LABS: BLOOD UREA NITROGEN 12 MG/DL (9-23); CALCIUM LEVEL 7.9 MG/DL (8.5-10.1); CARBON DIOXIDE LEVEL 26 MMOL/L (20-31); CHLORIDE LEVEL 111 MMOL/L (98-107); CREATININE FOR GFR 0.68 MG/DL (0.55-1.30); GLOMERULAR FILTRATION RATE > 60.0 (>58); GLUCOSE, FASTING 150 MG/DL (60-100); MAGNESIUM LEVEL 1.8 MG/DL (1.8-2.4); POTASSIUM SERUM 3.4 MMOL/L (3.5-5.1); SODIUM LEVEL 143 MMOL/L (136-145)
[2024-07-19] MEDS: TPN IV SCH (18:05)
[2024-07-19] MEDS: zolPIDEM TARTRATE 5 MG TAB PO ONE (20:59)
[2024-07-20] VITALS (7 sets, daily range): BP systolic 108–142; BP diastolic 54–82; TEMP 97.1–97.8; O2SAT 95–98
[2024-07-20 07:06] LABS: HEMOGLOBIN 10.4 g/dl (12.0-15.5); MEAN CORPUSCULAR HEMOGLOBIN 26.9 pg (27.0-33.0); MEAN CORPUSCULAR HGB CONC 31.5 g/dl (32.0-36.5); MEAN CORPUSCULAR VOLUME 85.3 fl (80.0-96.0); PLATELET COUNT, AUTOMATED 205 10^3/uL (150-450); RED BLOOD COUNT 3.87 10^6/uL (4.00-5.40); WHITE BLOOD COUNT 16.5 10^3/uL (4.0-10.0)
[2024-07-20 07:36] LABS: BLOOD UREA NITROGEN 14 MG/DL (9-23); CALCIUM LEVEL 8.9 MG/DL (8.5-10.1); CARBON DIOXIDE LEVEL 35 MMOL/L (20-31); CHLORIDE LEVEL 102 MMOL/L (98-107); CREATININE FOR GFR 0.52 MG/DL (0.55-1.30); GLOMERULAR FILTRATION RATE > 60.0 (>58); GLUCOSE, FASTING 183 MG/DL (60-100); MAGNESIUM LEVEL 2.2 MG/DL (1.8-2.4); POTASSIUM SERUM 3.5 MMOL/L (3.5-5.1); SODIUM LEVEL 141 MMOL/L (136-145)
[2024-07-20] MEDS: LORazepam 2 MG/ML 1ML VIAL IV STA (14:25)
[2024-07-20] MEDS ORDERED: LORazepam 1 MG TAB PO ONE (14:25)
[2024-07-20] MEDS ORDERED: LORazepam 2 MG/ML 1ML VIAL As Ordered ONE (14:27)
[2024-07-20] MEDS: HYDROCORTISONE 100MG/2ML VIAL IV SCH (21:08)
[2024-07-20] MEDS: zolPIDEM TARTRATE 5 MG TAB PO ONE (21:55)
[2024-07-21 04:02] VITALS: BP 124/62; TEMP 97.6; O2SAT 97
[2024-07-21 05:08] LABS: HEMATOCRIT 31.3 % (36.0-47.0); HEMOGLOBIN 9.8 g/dl (12.0-15.5); MEAN CORPUSCULAR HEMOGLOBIN 26.6 pg (27.0-33.0); MEAN CORPUSCULAR HGB CONC 31.3 g/dl (32.0-36.5); MEAN CORPUSCULAR VOLUME 85.1 fl (80.0-96.0); PLATELET COUNT, AUTOMATED 170 10^3/uL (150-450); RED BLOOD COUNT 3.68 10^6/uL (4.00-5.40); WHITE BLOOD COUNT 14.1 10^3/uL (4.0-10.0)
[2024-07-21 05:45] LABS: BLOOD UREA NITROGEN 11 MG/DL (9-23); CALCIUM LEVEL 7.4 MG/DL (8.5-10.1); CARBON DIOXIDE LEVEL 30 MMOL/L (20-31); CHLORIDE LEVEL 106 MMOL/L (98-107); CREATININE FOR GFR 0.48 MG/DL (0.55-1.30); GLOMERULAR FILTRATION RATE > 60.0 (>58); GLUCOSE, FASTING 125 MG/DL (60-100); MAGNESIUM LEVEL 1.7 MG/DL (1.8-2.4); SODIUM LEVEL 142 MMOL/L (136-145)
[2024-07-21 06:30] LABS: POTASSIUM SERUM 2.7 MMOL/L (3.5-5.1)
[2024-07-21] MEDS: KCL 10MEQ/100ML SWI (KRUN) 10 MEQ in IV 1 EA IV SCH (06:38)
[2024-07-21 08:10] LABS: PROLACTIN 2.35 NG/ML
[2024-07-21 12:04] VITALS: BP 144/62; TEMP 97.9; O2SAT 95
[2024-07-21] MEDS ORDERED: LIDOCAINE 1% MDV 20ML VIAL As Ordered ONE (16:22)
[2024-07-21] MEDS ORDERED: LIDOCAINE 2% JELLY 6ML SYRINGE As Ordered ONE (16:22)
[2024-07-21] MEDS ORDERED: ISOVUE-300 61% 100ML VIAL As Ordered ONE (16:22)
[2024-07-21] MEDS ORDERED: fentaNYL 100 MCG/2 ML INJECTION As Ordered ONE (16:31)
[2024-07-21] MEDS ORDERED: MIDAZOLAM INJ 2MG/2ML VIAL As Ordered ONE (16:31)
[2024-07-21] MEDS: LORazepam 2 MG/ML 1ML VIAL IV STA (17:12)
[2024-07-21 20:48] VITALS: BP 151/81; TEMP 96.9; O2SAT 95
[2024-07-21] MEDS: FLUCONAZOLE 200 MG in IV 1 EA IV SCH (21:57)
[2024-07-21] MEDS: zolPIDEM TARTRATE 5 MG TAB PO ONE (21:58)
[2024-07-21] MEDS: KCL 10MEQ/100ML SWI (KRUN) 10 MEQ in IV 1 EA IV ONE (23:07)
[2024-07-22] VITALS (7 sets, daily range): BP systolic 110–145; BP diastolic 60–70; TEMP 96.6–97.5; O2SAT 97–100
[2024-07-22 09:32] LABS: HEMATOCRIT 38.2 % (36.0-47.0); HEMOGLOBIN 12.2 g/dl (12.0-15.5); MEAN CORPUSCULAR HEMOGLOBIN 26.7 pg (27.0-33.0); MEAN CORPUSCULAR HGB CONC 31.9 g/dl (32.0-36.5); MEAN CORPUSCULAR VOLUME 83.6 fl (80.0-96.0); PLATELET COUNT, AUTOMATED 273 10^3/uL (150-450); RED BLOOD COUNT 4.57 10^6/uL (4.00-5.40); WHITE BLOOD COUNT 11.4 10^3/uL (4.0-10.0)
[2024-07-22 10:02] LABS: C REACTIVE PROTEIN QUANTITATIV < 0.40 MG/DL (<1.0)
[2024-07-22 10:06] LABS: BLOOD UREA NITROGEN 17 MG/DL (9-23); CALCIUM LEVEL 8.5 MG/DL (8.5-10.1); CARBON DIOXIDE LEVEL 30 MMOL/L (20-31); CHLORIDE LEVEL 103 MMOL/L (98-107); CREATININE FOR GFR 0.62 MG/DL (0.55-1.30); GLOMERULAR FILTRATION RATE > 60.0 (>58); GLUCOSE, FASTING 126 MG/DL (60-100); MAGNESIUM LEVEL 2.5 MG/DL (1.8-2.4); POTASSIUM SERUM 4.2 MMOL/L (3.5-5.1); SODIUM LEVEL 137 MMOL/L (136-145)
[2024-07-22] MEDS: MORPHINE 2 MG/ML 1ML VIAL IV ONE (16:08)
[2024-07-22] MEDS: zolPIDEM TARTRATE 5 MG TAB PO PRN (21:30)
[2024-07-23 06:52] LABS: HEMATOCRIT 33.2 % (36.0-47.0); HEMOGLOBIN 10.4 g/dl (12.0-15.5); MEAN CORPUSCULAR HEMOGLOBIN 26.7 pg (27.0-33.0); MEAN CORPUSCULAR HGB CONC 31.3 g/dl (32.0-36.5); MEAN CORPUSCULAR VOLUME 85.3 fl (80.0-96.0); PLATELET COUNT, AUTOMATED 213 10^3/uL (150-450); RED BLOOD COUNT 3.89 10^6/uL (4.00-5.40); WHITE BLOOD COUNT 8.6 10^3/uL (4.0-10.0)
[2024-07-23 07:22] LABS: BLOOD UREA NITROGEN 9 MG/DL (9-23); CALCIUM LEVEL 7.4 MG/DL (8.5-10.1); CARBON DIOXIDE LEVEL 25 MMOL/L (20-31); CHLORIDE LEVEL 111 MMOL/L (98-107); GLOMERULAR FILTRATION RATE > 60.0 (>58); GLUCOSE, FASTING 103 MG/DL (60-100); POTASSIUM SERUM 3.5 MMOL/L (3.5-5.1); SODIUM LEVEL 141 MMOL/L (136-145)
[2024-07-23 08:40] VITALS: BP 128/72; TEMP 97.2; O2SAT 96
[2024-07-23] MEDS: MORPHINE 2 MG/ML 1ML VIAL IV ONE (11:55)
[2024-07-23 11:58] VITALS: BP 114/72; TEMP 97.4; O2SAT 100
[2024-07-23] MEDS: ONDANSETRON 4MG 2ML VIAL IV PRN (14:50)
[2024-07-23] MEDS: diphenhydrAMINE 50MG/ML VIAL IV PRN (14:50)
[2024-07-23 19:19] VITALS: BP 116/68; O2SAT 97
[2024-07-23 20:00] VITALS: BP 127/67; TEMP 98.3; O2SAT 94
[2024-07-23 23:28] VITALS: BP 159/71; TEMP 97.7; O2SAT 98
[2024-07-24 03:08] VITALS: BP 154/74; TEMP 98.1; O2SAT 100
[2024-07-24 07:26] LABS: HEMATOCRIT 36.1 % (36.0-47.0); HEMOGLOBIN 11.5 g/dl (12.0-15.5); MEAN CORPUSCULAR HEMOGLOBIN 26.9 pg (27.0-33.0); MEAN CORPUSCULAR HGB CONC 31.9 g/dl (32.0-36.5); MEAN CORPUSCULAR VOLUME 84.3 fl (80.0-96.0); PLATELET COUNT, AUTOMATED 295 10^3/uL (150-450); RED BLOOD COUNT 4.28 10^6/uL (4.00-5.40)
[2024-07-24 07:39] LABS: BLOOD UREA NITROGEN 14 MG/DL (9-23); CALCIUM LEVEL 9.4 MG/DL (8.5-10.1); CARBON DIOXIDE LEVEL 29 MMOL/L (20-31); CHLORIDE LEVEL 107 MMOL/L (98-107); CREATININE FOR GFR 0.53 MG/DL (0.55-1.30); GLOMERULAR FILTRATION RATE > 60.0 (>58); GLUCOSE, FASTING 135 MG/DL (60-100); POTASSIUM SERUM 4.3 MMOL/L (3.5-5.1); SODIUM LEVEL 140 MMOL/L (136-145)
[2024-07-24 08:37] VITALS: BP 144/75; TEMP 97.5; O2SAT 100
[2024-07-24] MEDS: MORPHINE 2 MG/ML 1ML VIAL IV PRN (09:58)
[2024-07-24] MEDS: METOCLOPRAMIDE INJ 10MG/2ML VIAL IV PRN (11:53)
[2024-07-24 12:34] VITALS: BP 181/95; TEMP 98
[2024-07-24] MEDS: PROMETHAZINE 25MG/ML 1ML VIAL IV ONE (13:24)
[2024-07-24 16:27] VITALS: BP 168/110; TEMP 99.2; O2SAT 99
[2024-07-24] MEDS: PROCHLORPERAZINE 10MG 2ML VIAL IV PRN (18:59)
[2024-07-24 20:09] VITALS: BP 162/84; TEMP 97.9; O2SAT 98
[2024-07-24] MEDS: FLUCONAZOLE 200 MG in IV 1 EA IV SCH (22:25)
[2024-07-24 23:21] VITALS: BP 158/74; TEMP 97.4; O2SAT 98
[2024-07-25 03:24] VITALS: BP 164/78; TEMP 97.6; O2SAT 96
[2024-07-25 07:34] VITALS: BP 160/62; TEMP 98.6; O2SAT 95
[2024-07-25 09:10] LABS: BASO % 0.2 % (0.0-1.0); EOS # 0.2 10^3/uL (0.0-0.5); EOS % 2.4 % (0.0-3.0); HEMATOCRIT 30.9 % (36.0-47.0); HEMOGLOBIN 9.7 g/dl (12.0-15.5); LYMPH # 1.7 10^3/uL (1.5-5.0); MEAN CORPUSCULAR HEMOGLOBIN 26.7 pg (27.0-33.0); MEAN CORPUSCULAR HGB CONC 31.4 g/dl (32.0-36.5); MEAN CORPUSCULAR VOLUME 85.1 fl (80.0-96.0); MONO # 0.6 10^3/uL (0.0-0.8); MONO % 8.9 % (2.0-8.0); NEUTROPHILS # 4.1 10^3/uL (1.5-8.5); NEUTROPHILS % 60.8 % (36.0-66.0); PLATELET COUNT, AUTOMATED 244 10^3/uL (150-450); RED BLOOD COUNT 3.63 10^6/uL (4.00-5.40); WHITE BLOOD COUNT 6.7 10^3/uL (4.0-10.0)
[2024-07-25 09:35] LABS: BLOOD UREA NITROGEN 14 MG/DL (9-23); CALCIUM LEVEL 9.1 MG/DL (8.5-10.1); CARBON DIOXIDE LEVEL 27 MMOL/L (20-31); CHLORIDE LEVEL 112 MMOL/L (98-107); CREATININE FOR GFR 0.67 MG/DL (0.55-1.30); GLOMERULAR FILTRATION RATE > 60.0 (>58); GLUCOSE, FASTING 76 MG/DL (60-100); MAGNESIUM LEVEL 2.2 MG/DL (1.8-2.4); POTASSIUM SERUM 3.9 MMOL/L (3.5-5.1); SODIUM LEVEL 142 MMOL/L (136-145)
[2024-07-25 12:00] VITALS: BP 101/53; TEMP 97.5; O2SAT 95
[2024-07-25 16:00] VITALS: BP 101/51; TEMP 97.2; O2SAT 96
[2024-07-25 19:15] VITALS: BP 100/53; TEMP 97.6; O2SAT 95
[2024-07-25 23:08] VITALS: BP 99/52; TEMP 97.4; O2SAT 96
[2024-07-26] VITALS (8 sets, daily range): BP systolic 96–127; BP diastolic 51–59; TEMP 97.2–98.4; O2SAT 96–98
[2024-07-26 09:09] LABS: BASO % 0.1 % (0.0-1.0); EOS # 0.2 10^3/uL (0.0-0.5); EOS % 2.1 % (0.0-3.0); HEMATOCRIT 31.9 % (36.0-47.0); HEMOGLOBIN 9.9 g/dl (12.0-15.5); LYMPH # 1.8 10^3/uL (1.5-5.0); LYMPH % 21.7 % (24.0-44.0); MEAN CORPUSCULAR HEMOGLOBIN 27.2 pg (27.0-33.0); MEAN CORPUSCULAR VOLUME 87.6 fl (80.0-96.0); MONO # 0.7 10^3/uL (0.0-0.8); MONO % 8.4 % (2.0-8.0); NEUTROPHILS # 5.5 10^3/uL (1.5-8.5); NEUTROPHILS % 66.7 % (36.0-66.0); PLATELET COUNT, AUTOMATED 202 10^3/uL (150-450); RED BLOOD COUNT 3.64 10^6/uL (4.00-5.40); WHITE BLOOD COUNT 8.2 10^3/uL (4.0-10.0)
[2024-07-26 09:39] LABS: BLOOD UREA NITROGEN 17 MG/DL (9-23); CALCIUM LEVEL 9.2 MG/DL (8.5-10.1); CARBON DIOXIDE LEVEL 31 MMOL/L (20-31); CHLORIDE LEVEL 105 MMOL/L (98-107); GLOMERULAR FILTRATION RATE > 60.0 (>58); GLUCOSE, FASTING 110 MG/DL (60-100); MAGNESIUM LEVEL 2.5 MG/DL (1.8-2.4); POTASSIUM SERUM 4.4 MMOL/L (3.5-5.1); SODIUM LEVEL 138 MMOL/L (136-145)
[2024-07-26] MEDS: PROCHLORPERAZINE 10MG 2ML VIAL IV PRN (11:25)
[2024-07-26] MEDS: SODIUM CHLORIDE 0.9% INJ 10 ML SYR IV PRN (11:26)
[2024-07-27] VITALS (8 sets, daily range): BP systolic 96–170; BP diastolic 52–87; TEMP 97–98; O2SAT 98–100
[2024-07-27] MEDS: ALTEPLASE 2MG/2ML VIAL XX ONE ×2 (05:46→05:47)
[2024-07-27 06:34] LABS: BASO % 0.3 % (0.0-1.0); EOS # 0.2 10^3/uL (0.0-0.5); EOS % 2.9 % (0.0-3.0); HEMOGLOBIN 10.4 g/dl (12.0-15.5); LYMPH # 1.4 10^3/uL (1.5-5.0); LYMPH % 22.9 % (24.0-44.0); MEAN CORPUSCULAR HEMOGLOBIN 27.3 pg (27.0-33.0); MEAN CORPUSCULAR HGB CONC 31.5 g/dl (32.0-36.5); MEAN CORPUSCULAR VOLUME 86.6 fl (80.0-96.0); MONO # 0.6 10^3/uL (0.0-0.8); MONO % 9.8 % (2.0-8.0); NEUTROPHILS # 3.8 10^3/uL (1.5-8.5); NEUTROPHILS % 63.4 % (36.0-66.0); PLATELET COUNT, AUTOMATED 258 10^3/uL (150-450); RED BLOOD COUNT 3.81 10^6/uL (4.00-5.40); WHITE BLOOD COUNT 5.9 10^3/uL (4.0-10.0)
[2024-07-27 07:57] LABS: BLOOD UREA NITROGEN 12 MG/DL (9-23); CALCIUM LEVEL 9.5 MG/DL (8.5-10.1); CARBON DIOXIDE LEVEL 31 MMOL/L (20-31); CHLORIDE LEVEL 105 MMOL/L (98-107); CREATININE FOR GFR 0.61 MG/DL (0.55-1.30); GLOMERULAR FILTRATION RATE > 60.0 (>58); GLUCOSE, FASTING 108 MG/DL (60-100); MAGNESIUM LEVEL 2.2 MG/DL (1.8-2.4); POTASSIUM SERUM 4.1 MMOL/L (3.5-5.1); SODIUM LEVEL 142 MMOL/L (136-145)
[2024-07-27] MEDS ORDERED: propofoL 200 MG/20 ML VIAL As Ordered ONE (10:12)
[2024-07-27] MEDS ORDERED: ONDANSETRON 4MG 2ML VIAL As Ordered ONE (10:12)
[2024-07-27] MEDS ORDERED: LIDOCAINE 2% 100MG/5ML SDV (FOR ANES.) As Ordered ONE (10:12)
[2024-07-27] MEDS: oxyCODONE 5MG TAB JT PRN ×2 (14:43→20:24)
[2024-07-28] VITALS: BP 102/56; TEMP 98.1; O2SAT 96
[2024-07-28 04:57] VITALS: BP 105/57; TEMP 97.1; O2SAT 96
[2024-07-28 05:21] LABS: BASO % 0.4 % (0.0-1.0); EOS # 0.1 10^3/uL (0.0-0.5); EOS % 1.9 % (0.0-3.0); HEMATOCRIT 32.8 % (36.0-47.0); HEMOGLOBIN 10.1 g/dl (12.0-15.5); LYMPH # 0.9 10^3/uL (1.5-5.0); LYMPH % 17.7 % (24.0-44.0); MEAN CORPUSCULAR HGB CONC 30.8 g/dl (32.0-36.5); MEAN CORPUSCULAR VOLUME 87.7 fl (80.0-96.0); MONO # 0.5 10^3/uL (0.0-0.8); MONO % 8.8 % (2.0-8.0); NEUTROPHILS # 3.7 10^3/uL (1.5-8.5); NEUTROPHILS % 70.8 % (36.0-66.0); PLATELET COUNT, AUTOMATED 247 10^3/uL (150-450); RED BLOOD COUNT 3.74 10^6/uL (4.00-5.40); WHITE BLOOD COUNT 5.2 10^3/uL (4.0-10.0)
[2024-07-28 05:46] LABS: BLOOD UREA NITROGEN 14 MG/DL (9-23); CALCIUM LEVEL 9.2 MG/DL (8.5-10.1); CARBON DIOXIDE LEVEL 32 MMOL/L (20-31); CHLORIDE LEVEL 103 MMOL/L (98-107); CREATININE FOR GFR 0.58 MG/DL (0.55-1.30); GLOMERULAR FILTRATION RATE > 60.0 (>58); GLUCOSE, FASTING 129 MG/DL (60-100); MAGNESIUM LEVEL 2.5 MG/DL (1.8-2.4); POTASSIUM SERUM 4.8 MMOL/L (3.5-5.1); SODIUM LEVEL 139 MMOL/L (136-145)
[2024-07-28 08:54] VITALS: BP 97/55; TEMP 97; O2SAT 99
[2024-07-28 11:22] VITALS: BP 97/53; TEMP 97; O2SAT 98
[2024-07-28 18:59] VITALS: BP 110/63; TEMP 97.3; O2SAT 96
[2024-07-29 05:25] LABS: BASO % 0.7 % (0.0-1.0); EOS # 0.2 10^3/uL (0.0-0.5); EOS % 3.6 % (0.0-3.0); HEMATOCRIT 31.8 % (36.0-47.0); HEMOGLOBIN 9.8 g/dl (12.0-15.5); LYMPH # 1.1 10^3/uL (1.5-5.0); LYMPH % 25.6 % (24.0-44.0); MEAN CORPUSCULAR HEMOGLOBIN 26.8 pg (27.0-33.0); MEAN CORPUSCULAR HGB CONC 30.8 g/dl (32.0-36.5); MEAN CORPUSCULAR VOLUME 86.9 fl (80.0-96.0); MONO # 0.6 10^3/uL (0.0-0.8); MONO % 13.9 % (2.0-8.0); NEUTROPHILS # 2.5 10^3/uL (1.5-8.5); NEUTROPHILS % 55.8 % (36.0-66.0); PLATELET COUNT, AUTOMATED 202 10^3/uL (150-450); RED BLOOD COUNT 3.66 10^6/uL (4.00-5.40); WHITE BLOOD COUNT 4.5 10^3/uL (4.0-10.0)
[2024-07-29 05:53] LABS: BLOOD UREA NITROGEN 15 MG/DL (9-23); CALCIUM LEVEL 9.2 MG/DL (8.5-10.1); CARBON DIOXIDE LEVEL 31 MMOL/L (20-31); CHLORIDE LEVEL 106 MMOL/L (98-107); GLOMERULAR FILTRATION RATE > 60.0 (>58); GLUCOSE, FASTING 118 MG/DL (60-100); POTASSIUM SERUM 3.7 MMOL/L (3.5-5.1); SODIUM LEVEL 141 MMOL/L (136-145)
[2024-07-29 06:30] VITALS: BP 111/68; TEMP 97.7; O2SAT 96
[2024-07-29 07:58] VITALS: BP 120/60; TEMP 97.3; O2SAT 98
[2024-07-29 09:55] VITALS: BP 103/58; TEMP 97.3; O2SAT 98
[2024-07-29 12:00] VITALS: BP 102/59; TEMP 97.3; O2SAT 97
== END 2024-07-29 17:03 | disposition left against medical advice (07) | DRG 720 ==
LOC: M ED 15:29 → M ED INP 23:54 → M PCU 07-15 16:26 → M ED INP 07-28 12:39 → M PCU 07-28 12:40 → M MSPAV 07-29 09:52
PROVIDERS: ADMIT Internal Medicine; ATTEND Internal Medicine
PROC: B246ZZZ Ultrasonography of Right and Left Heart (ICD-10-PCS; principal; 2024-07-18)
PROC: 0DHA3UZ Insertion of Feeding Device into Jejunum, Percutaneous Approach (ICD-10-PCS; 2024-07-27)
DX: A41.51 Sepsis due to Escherichia coli [E. coli] (principal); R65.21 Severe sepsis with septic shock; J18.9 Pneumonia, unspecified organism; D68.32 Hemorrhagic disorder due to extrinsic circulating anticoagulants; D68.59 Other primary thrombophilia; K91.2 Postsurgical malabsorption, not elsewhere classified; K31.84 Gastroparesis; B37.0 Candidal stomatitis; G40.209 Localization-related (focal) (partial) symptomatic epilepsy and epileptic syndromes with complex partial seizures, not intractable, without status epilepticus; Z93.1 Gastrostomy status; K76.0 Fatty (change of) liver, not elsewhere classified; K21.9 Gastro-esophageal reflux disease without esophagitis; M54.9 Dorsalgia, unspecified; G89.29 Other chronic pain; J45.909 Unspecified asthma, uncomplicated; F32.A Depression, unspecified; F41.9 Anxiety disorder, unspecified; D50.9 Iron deficiency anemia, unspecified; K90.0 Celiac disease; E78.5 Hyperlipidemia, unspecified; G47.00 Insomnia, unspecified; Z98.84 Bariatric surgery status; Z79.899 Other long term (current) drug therapy; Z88.2 Allergy status to sulfonamides; Z88.8 Allergy status to other drugs, medicaments and biological substances; Z88.6 Allergy status to analgesic agent; Z91.041 Radiographic dye allergy status; I10 Essential (primary) hypertension; N39.0 Urinary tract infection, site not specified

== ENCOUNTER → 2024-09-08 | Outpatient (CLI) | payer BC ==
[~2024-09-08] MED LIST changes: +META-10 PO; -META1TAB22 PO; +NYST1POW3 TOP; -NYST1POW9 TOP; -ROSU5TAB40 PO; +ROSU5TAB49 PO
== END ==
LOC: M PAL 08:00
PROVIDERS: ATTEND Nurse Practitioner Adult Health
DX: G89.29 Other chronic pain (principal); D68.59 Other primary thrombophilia; K31.84 Gastroparesis; R10.84 Generalized abdominal pain; G40.009 Localization-related (focal) (partial) idiopathic epilepsy and epileptic syndromes with seizures of localized onset, not intractable, without status epilepticus; R53.1 Weakness; K08.109 Complete loss of teeth, unspecified cause, unspecified class; K90.829 Short bowel syndrome, unspecified; R11.2 Nausea with vomiting, unspecified; F41.9 Anxiety disorder, unspecified; F32.A Depression, unspecified; Z51.5 Encounter for palliative care; Z79.01 Long term (current) use of anticoagulants; Z79.891 Long term (current) use of opiate analgesic; Z79.899 Other long term (current) drug therapy; Z86.16 Personal history of COVID-19; Z86.711 Personal history of pulmonary embolism; Z88.1 Allergy status to other antibiotic agents; Z88.2 Allergy status to sulfonamides; Z88.5 Allergy status to narcotic agent; Z88.8 Allergy status to other drugs, medicaments and biological substances; Z91.018 Allergy to other foods; Z91.041 Radiographic dye allergy status; Z90.710 Acquired absence of both cervix and uterus; Z93.1 Gastrostomy status; Z93.4 Other artificial openings of gastrointestinal tract status; Z98.84 Bariatric surgery status; Z98.890 Other specified postprocedural states

== ENCOUNTER 2024-10-11 13:36 | Inpatient (IN) | payer BC ==
[2024-10-11] VITALS (8 sets, daily range): BP systolic 88–136; BP diastolic 52–69; TEMP 96.7; O2SAT 95–99
[~2024-10-11] VITALS: Ht 170.2 cm; Wt 83.6 kg
[2024-10-11] MEDS: ACETAMINOPHEN 325 MG TAB PO ONE (13:50)
[2024-10-11] MEDS ORDERED: AMOX875T2 JT (14:09)
[2024-10-11 14:20] LABS: VENOUS BASE EXCESS -4.9 (-2.0-2.0); VENOUS HCO3 20.7 MMOL/L (23.0-27.0); VENOUS PARTIAL PRESSURE CO2 40.1 mmHg (38.0-50.0); VENOUS PARTIAL PRESSURE O2 30.3 mmHg (30.0-50.0); VENOUS STANDARD HCO3 19.5 MMOL/L; VENOUS TOTAL CO2 21.9 MMOL/L (24.0-28.0)
[2024-10-11 14:28] LABS: HEMATOCRIT 28.4 % (36.0-47.0); HEMOGLOBIN 8.6 g/dl (12.0-15.5); MEAN CORPUSCULAR HEMOGLOBIN 24.8 pg (27.0-33.0); MEAN CORPUSCULAR HGB CONC 30.3 g/dl (32.0-36.5); MEAN CORPUSCULAR VOLUME 81.8 fl (80.0-96.0); PLATELET COUNT, AUTOMATED 275 10^3/uL (150-450); RED BLOOD COUNT 3.47 10^6/uL (4.00-5.40)
[2024-10-11 14:30] LABS: WHITE BLOOD COUNT 30.7 10^3/uL (4.0-10.0)
[2024-10-11 14:32] LABS: VENOUS O2 SATURATION 84.9 % (60.0-80.0)
[2024-10-11] MEDS: ACETAMINOPHEN 325MG/10.15ML UDC JT ONE ×2 (14:40→16:21)
[2024-10-11 14:53] LABS: AMYLASE 46 U/L (30-118)
[2024-10-11 14:54] LABS: ALBUMIN 2.7 G/DL (3.2-5.2); ALKALINE PHOSPHATASE 459 U/L (35-104); ALT/SGPT 36 U/L (7.0-40); AST/SGOT 77 U/L (<34); BILIRUBIN,DIRECT 1.1 MG/DL (<0.4); BILIRUBIN,TOTAL 1.9 MG/DL (0.3-1.2); BLOOD UREA NITROGEN 36 MG/DL (9-23); CALCIUM LEVEL 8.2 MG/DL (8.5-10.1); CARBON DIOXIDE LEVEL 19 MMOL/L (20-31); CHLORIDE LEVEL 96 MMOL/L (98-107); CK-MB VALUE MASS 3.6 NG/ML (<3.6); CREATININE FOR GFR 1.99 MG/DL (0.55-1.30); GLOMERULAR FILTRATION RATE 28.8 (>58); GLUCOSE, FASTING 107 MG/DL (60-100); POTASSIUM SERUM 4.6 MMOL/L (3.5-5.1); SODIUM LEVEL 133 MMOL/L (136-145); TOTAL PROTEIN 6.8 G/DL (5.7-8.2)
[2024-10-11 15:03] LABS: LYMPHOCYTES 2 % (16-44); NEUTROPHILS 80 % (28-66); PLATELET ESTIMATE NORMAL (NORMAL)
[2024-10-11] MEDS: NS (Normal Saline) 0.9% 1,000 ML IV ONE ×2 (15:36)
[2024-10-11] MEDS: PIPERACILLIN/TAZOBACTAM SOD 4.5 GM in DEXTROSE 5% (D5W) ADV/MINI-BAG 50 ML IV ONE (15:40)
[2024-10-11] MEDS: ONDANSETRON 4MG 2ML VIAL IV ONE (15:44)
[2024-10-11] MEDS: diphenhydrAMINE 50MG/ML VIAL IV STA (15:44)
[2024-10-11 15:50] LABS: CPK CREATINE PHOSPHOKINASE 283 U/L (34-145); MB/CK RELATIVE INDEX 1.27 (< OR =4); PROCALCITONIN >50.00 ng/ml
[2024-10-11] MEDS: NOREPINEPHRINE 4MG IN D5 250ML 4 MG in IV 1 EA IV SCH ×2 (16:19→19:28)
[2024-10-11] MEDS: [UNRECOGNIZED DRUG - OTHER] IV ONE (16:30)
[2024-10-11] MEDS: NS 0.9% IV ONE (16:30)
[2024-10-11 16:45] LABS: KETONE, URINE AUTO RFX TRACE mg/dL (NEGATIVE); LEUKOCYTE ESTERASE UR AUTO RFX NEGATIVE (NEGATIVE); MUCUS, URINE RFX SMALL (NEGATIVE); NITRITE, URINE AUTO RFX NEGATIVE (NEGATIVE)
[2024-10-11] MEDS: MORPHINE 4 MG/ML 1ML VIAL IV PRN (17:20)
[2024-10-11 17:57] LABS: CK-MB VALUE MASS 2.2 NG/ML (<3.6)
[2024-10-11 18:23] LABS: MB/CK RELATIVE INDEX 0.97 (< OR =4)
[2024-10-11] MEDS ORDERED: VASOPRESSIN IN 0.9 % NACL 20 UNIT in IV 1 EA IV SCH (19:00)
[2024-10-11] MEDS ORDERED: VANCOMYCIN HCL 750 MG, VIAL MATE ADAPTER 1 EACH in NS 250 ML IV SCH (19:25)
[2024-10-11 19:58] LABS: ACETONE/KETONE 0.21 MMOL/L (0.02-0.27)
[2024-10-11] MEDS ORDERED: ONDA4INJ4 IV (20:55)
[2024-10-11] MEDS ORDERED: HOME MED LIST COMPLETE! XX SCH (21:00)
[2024-10-11] MEDS ORDERED: PIPERACILLIN/TAZOBACTAM SOD 4.5 GM in DEXTROSE 5% (D5W) ADV/MINI-BAG 50 ML IV ONE (22:00)
[2024-10-11] MEDS: HYDROCORTISONE 100MG/2ML VIAL IV ONE (22:26)
[2024-10-11] MEDS: ONDANSETRON 4MG 2ML VIAL IV PRN (22:26)
[2024-10-11] MEDS: levETIRAcetam INJection 500 MG in DEXTROSE 5% (D5W) MINI-BAG PLU 100 ML IV SCH (22:27)
[2024-10-11] MEDS: zolPIDEM TARTRATE 5 MG TAB JT SCH (22:27)
[2024-10-11] MEDS: diphenhydrAMINE 50MG/ML VIAL IV PRN (22:27)
[2024-10-11] MEDS: PANTOPRAZOLE 40MG VIAL IV SCH (22:27)
[2024-10-11] MEDS: oxyCODONE 5MG TAB JT PRN (22:28)
[2024-10-11] MEDS: VANCOMYCIN HCL 1,500 MG, VIAL MATE ADAPTER 1 EACH in NS 500 ML IV ONE (22:57)
[2024-10-12] VITALS (61 sets, daily range): BP systolic 73–123; BP diastolic 39–76; TEMP 96.8–97.9; O2SAT 93–98
[2024-10-12] MEDS ORDERED: PIPERACILLIN/TAZOBACTAM SOD 4.5 GM in DEXTROSE 5% (D5W) ADV/MINI-BAG 50 ML IV SCH (01:00)
[2024-10-12] MEDS: MICAFUNGIN SODIUM 100 MG in DEXTROSE 5% (D5W) MINI-BAG PLU 100 ML IV SCH (02:20)
[2024-10-12] MEDS: CEFEPIME HCL 2 GM in DEXTROSE 5% (D5W) ADV/MINI-BAG 50 ML IV SCH (03:24)
[2024-10-12 04:43] LABS: HEMATOCRIT 29.3 % (36.0-47.0); HEMOGLOBIN 8.9 g/dl (12.0-15.5); MEAN CORPUSCULAR HEMOGLOBIN 25.6 pg (27.0-33.0); MEAN CORPUSCULAR HGB CONC 30.4 g/dl (32.0-36.5); MEAN CORPUSCULAR VOLUME 84.4 fl (80.0-96.0); PLATELET COUNT, AUTOMATED 216 10^3/uL (150-450); RED BLOOD COUNT 3.47 10^6/uL (4.00-5.40); WHITE BLOOD COUNT 30.3 10^3/uL (4.0-10.0)
[2024-10-12 05:38] LABS: ALBUMIN 2.5 G/DL (3.2-5.2); BILIRUBIN,TOTAL 0.8 MG/DL (0.3-1.2); CALCIUM LEVEL 7.8 MG/DL (8.5-10.1); CREATININE FOR GFR 1.26 MG/DL (0.55-1.30); GLOMERULAR FILTRATION RATE 48.9 (>58); MAGNESIUM LEVEL 2.6 MG/DL (1.8-2.4); PHOSPHORUS LEVEL 2.2 MG/DL (2.5-4.9); POTASSIUM SERUM 4.8 MMOL/L (3.5-5.1); TOTAL PROTEIN 6.3 G/DL (5.7-8.2)
[2024-10-12 05:41] LABS: ANISOCYTOSIS 1+; LYMPHOCYTES 3 % (16-44); MONOCYTES 2 % (0-5); NEUTROPHILS 89 % (28-66); PLATELET ESTIMATE NORMAL (NORMAL); POIKILOCYTOSIS 1+; POLYCHROMASIA 1+
[2024-10-12] MEDS: HEPARIN SOD (PORCINE) 5000UNITS/ML 1ML VIAL/SYRINGE SC SCH (06:00)
[2024-10-12 08:28] LABS: VANCOMYCIN RANDOM 16.9 UG/ML
[2024-10-12] MEDS ORDERED: PANTOPRAZOLE 40MG VIAL IV SCH (09:00)
[2024-10-12] MEDS: MIDODRINE 5 MG TAB JT SCH (09:32)
[2024-10-12] MEDS: metroNIDAZOLE 500 MG in IV 1 EA IV SCH (09:34)
[2024-10-12] MEDS ORDERED: ENOX40IN3 SQ (10:58)
[2024-10-12] MEDS: VANCOMYCIN 1,000MG/200 ML IV BAG IV SCH (10:59)
[2024-10-12] MEDS ORDERED: VANCOMYCIN 1,000MG/200 ML IV BAG IV SCH (11:00)
[2024-10-12] MEDS: SODIUM PHOSPHATE INJ 30 MMOL in D5W 500 ML IV ONE (13:44)
[2024-10-12] MEDS: ENOXAPARIN 40MG/0.4ML SYRINGE (J1650 PER 10MG) SC SCH (15:02)
[2024-10-12] MEDS: FLUoxetine 20MG CAP JT SCH (15:03)
[2024-10-12] MEDS: PIPERACILLIN/TAZOBACTAM SOD 4.5 GM in DEXTROSE 5% (D5W) ADV/MINI-BAG 50 ML IV SCH (17:46)
[2024-10-12] MEDS ORDERED: CEFEPIME HCL 2 GM in DEXTROSE 5% (D5W) ADV/MINI-BAG 50 ML IV SCH (22:00)
[2024-10-13] VITALS (48 sets, daily range): BP systolic 75–123; BP diastolic 41–64; TEMP 96.8–98.3; O2SAT 92–98
[2024-10-13 04:48] LABS: BASO # 0.1 10^3/uL (0.0-0.2); BASO % 0.4 % (0.0-1.0); EOS # 0.1 10^3/uL (0.0-0.5); EOS % 0.6 % (0.0-3.0); LYMPH # 1.8 10^3/uL (1.5-5.0); LYMPH % 10.2 % (24.0-44.0); MEAN CORPUSCULAR HEMOGLOBIN 25.2 pg (27.0-33.0); MEAN CORPUSCULAR HGB CONC 30.8 g/dl (32.0-36.5); MONO # 0.9 10^3/uL (0.0-0.8); MONO % 5.2 % (2.0-8.0); NEUTROPHILS % 81.8 % (36.0-66.0); PLATELET COUNT, AUTOMATED 237 10^3/uL (150-450); RED BLOOD COUNT 3.17 10^6/uL (4.00-5.40); WHITE BLOOD COUNT 17.1 10^3/uL (4.0-10.0)
[2024-10-13 05:29] LABS: ALBUMIN 2.3 G/DL (3.2-5.2); ALKALINE PHOSPHATASE 201 U/L (35-104); ALT/SGPT 20 U/L (7.0-40); AST/SGOT 20 U/L (<34); BILIRUBIN,TOTAL 0.7 MG/DL (0.3-1.2); BLOOD UREA NITROGEN 14 MG/DL (9-23); CALCIUM LEVEL 8.2 MG/DL (8.5-10.1); CARBON DIOXIDE LEVEL 26 MMOL/L (20-31); CHLORIDE LEVEL 110 MMOL/L (98-107); CREATININE FOR GFR 0.89 MG/DL (0.55-1.30); GLOMERULAR FILTRATION RATE > 60.0 (>58); GLUCOSE, FASTING 170 MG/DL (60-100); MAGNESIUM LEVEL 2.5 MG/DL (1.8-2.4); PHOSPHORUS LEVEL 2.9 MG/DL (2.5-4.9); SODIUM LEVEL 145 MMOL/L (136-145); TOTAL PROTEIN 5.6 G/DL (5.7-8.2)
[2024-10-13] MEDS ORDERED: NOREPINEPHRINE 4MG IN D5 250ML 4 MG in IV 1 EA IV SCH (08:17)
[2024-10-13] MEDS: LR 1,000 ML IV ONE (12:07)
[2024-10-14] VITALS (30 sets, daily range): BP systolic 82–139; BP diastolic 45–71; TEMP 97–98; O2SAT 95–100
[2024-10-14 05:26] LABS: BASO % 0.4 % (0.0-1.0); EOS # 0.3 10^3/uL (0.0-0.5); EOS % 3.5 % (0.0-3.0); HEMATOCRIT 27.4 % (36.0-47.0); HEMOGLOBIN 7.9 g/dl (12.0-15.5); LYMPH # 1.9 10^3/uL (1.5-5.0); LYMPH % 23.7 % (24.0-44.0); MEAN CORPUSCULAR HEMOGLOBIN 24.4 pg (27.0-33.0); MEAN CORPUSCULAR HGB CONC 28.8 g/dl (32.0-36.5); MEAN CORPUSCULAR VOLUME 84.6 fl (80.0-96.0); MONO # 0.6 10^3/uL (0.0-0.8); MONO % 7.6 % (2.0-8.0); PLATELET COUNT, AUTOMATED 261 10^3/uL (150-450); RED BLOOD COUNT 3.24 10^6/uL (4.00-5.40); WHITE BLOOD COUNT 7.9 10^3/uL (4.0-10.0)
[2024-10-14 05:54] LABS: ALBUMIN 2.3 G/DL (3.2-5.2); ALKALINE PHOSPHATASE 173 U/L (35-104); ALT/SGPT 16 U/L (7.0-40); AST/SGOT 15 U/L (<34); BILIRUBIN,TOTAL 0.4 MG/DL (0.3-1.2); BLOOD UREA NITROGEN 6 MG/DL (9-23); CALCIUM LEVEL 8.4 MG/DL (8.5-10.1); CARBON DIOXIDE LEVEL 29 MMOL/L (20-31); CHLORIDE LEVEL 110 MMOL/L (98-107); CREATININE FOR GFR 0.77 MG/DL (0.55-1.30); GLOMERULAR FILTRATION RATE > 60.0 (>58); GLUCOSE, FASTING 132 MG/DL (60-100); MAGNESIUM LEVEL 2.4 MG/DL (1.8-2.4); PHOSPHORUS LEVEL 4.2 MG/DL (2.5-4.9); POTASSIUM SERUM 4.1 MMOL/L (3.5-5.1); SODIUM LEVEL 147 MMOL/L (136-145); TOTAL PROTEIN 5.9 G/DL (5.7-8.2)
[2024-10-14] MEDS: LR 1,000 ML IV SCH (10:36)
[2024-10-14] MEDS ORDERED: ALBUTEROL 90 MCG/ACT 8GM HFA INHALER INH PRN (13:35)
[2024-10-15] VITALS (8 sets, daily range): BP systolic 81–112; BP diastolic 48–61; TEMP 97.1–98.2; O2SAT 95–100
[2024-10-15 05:18] LABS: BASO % 0.7 % (0.0-1.0); EOS # 0.4 10^3/uL (0.0-0.5); HEMATOCRIT 25.5 % (36.0-47.0); HEMOGLOBIN 7.5 g/dl (12.0-15.5); LYMPH # 1.5 10^3/uL (1.5-5.0); LYMPH % 26.1 % (24.0-44.0); MEAN CORPUSCULAR HEMOGLOBIN 24.7 pg (27.0-33.0); MEAN CORPUSCULAR HGB CONC 29.4 g/dl (32.0-36.5); MEAN CORPUSCULAR VOLUME 83.9 fl (80.0-96.0); MONO # 0.4 10^3/uL (0.0-0.8); MONO % 7.5 % (2.0-8.0); NEUTROPHILS # 3.3 10^3/uL (1.5-8.5); NEUTROPHILS % 56.4 % (36.0-66.0); PLATELET COUNT, AUTOMATED 272 10^3/uL (150-450); RED BLOOD COUNT 3.04 10^6/uL (4.00-5.40); WHITE BLOOD COUNT 5.8 10^3/uL (4.0-10.0)
[2024-10-15 05:53] LABS: BLOOD UREA NITROGEN < 5 MG/DL (9-23); CARBON DIOXIDE LEVEL 27 MMOL/L (20-31); CHLORIDE LEVEL 110 MMOL/L (98-107); CREATININE FOR GFR 0.81 MG/DL (0.55-1.30); GLOMERULAR FILTRATION RATE > 60.0 (>58); GLUCOSE, FASTING 108 MG/DL (60-100); POTASSIUM SERUM 4.3 MMOL/L (3.5-5.1); SODIUM LEVEL 145 MMOL/L (136-145)
[2024-10-15] MEDS: SODIUM CHLORIDE 0.9% INJ 10 ML SYR IV SCH (08:15)
[2024-10-15] MEDS: INSULIN LISPRO (NovoLOG) PER UNIT SC SCH (18:00)
[2024-10-15] MEDS: FAT EMULSION IV 250 ML IV ONE (19:44)
[2024-10-15] MEDS: AMINO AC/ELECTROLYTE/DEX/CALC 1,000 ML IV SCH (19:44)
[2024-10-15] MEDS: SODIUM CHLORIDE 0.9% INJ 10 ML SYR IV PRN (19:46)
[2024-10-15 22:33] LABS: MAGNESIUM LEVEL 2.2 MG/DL (1.8-2.4); PHOSPHORUS LEVEL 4.1 MG/DL (2.5-4.9)
[2024-10-16 04:17] VITALS: BP 108/59; TEMP 97.8; O2SAT 95
[2024-10-16 07:23] VITALS: BP 98/53; TEMP 97.5; O2SAT 95
[2024-10-16 12:00] VITALS: BP_SYST 89; BP_SYST 96; BP_DIAS 50; BP_DIAS 53; TEMP 97.2; O2SAT 95
[2024-10-16 16:00] VITALS: BP 97/50; TEMP 97.1; O2SAT 96
[2024-10-16] MEDS: INSULIN LISPRO (NovoLOG) PER UNIT SC SCH (18:00)
[2024-10-16] MEDS: MULTIVITAMIN -ADULT INJECTION 10 ML, ZINC/COPPER/MANGANESE/SELENIUM 1 ML in AMINO AC/EL... IV SCH (18:11)
[2024-10-16] MEDS: FAT EMULSION IV 250 ML IV ONE (18:11)
[2024-10-16 18:57] LABS: BASO % 0.4 % (0.0-1.0); EOS # 0.4 10^3/uL (0.0-0.5); EOS % 4.9 % (0.0-3.0); HEMATOCRIT 28.4 % (36.0-47.0); HEMOGLOBIN 8.4 g/dl (12.0-15.5); LYMPH # 1.9 10^3/uL (1.5-5.0); LYMPH % 21.2 % (24.0-44.0); MEAN CORPUSCULAR HEMOGLOBIN 24.7 pg (27.0-33.0); MEAN CORPUSCULAR HGB CONC 29.6 g/dl (32.0-36.5); MEAN CORPUSCULAR VOLUME 83.5 fl (80.0-96.0); MONO # 0.6 10^3/uL (0.0-0.8); MONO % 6.8 % (2.0-8.0); NEUTROPHILS # 5.8 10^3/uL (1.5-8.5); PLATELET COUNT, AUTOMATED 391 10^3/uL (150-450)
[2024-10-16 19:20] LABS: MAGNESIUM LEVEL 1.9 MG/DL (1.8-2.4); PHOSPHORUS LEVEL 3.6 MG/DL (2.5-4.9)
[2024-10-16 19:23] LABS: BLOOD UREA NITROGEN 8 MG/DL (9-23); CARBON DIOXIDE LEVEL 27 MMOL/L (20-31); CHLORIDE LEVEL 107 MMOL/L (98-107); CREATININE FOR GFR 0.83 MG/DL (0.55-1.30); GLOMERULAR FILTRATION RATE > 60.0 (>58); GLUCOSE, FASTING 118 MG/DL (60-100); POTASSIUM SERUM 4.6 MMOL/L (3.5-5.1); SODIUM LEVEL 142 MMOL/L (136-145)
[2024-10-16 19:50] VITALS: BP 118/59; TEMP 97.1; O2SAT 98
[2024-10-16 23:26] VITALS: BP 94/53; TEMP 97.1; O2SAT 97
[2024-10-17 03:27] VITALS: BP 96/56; TEMP 98.5; O2SAT 95
[2024-10-17 05:27] LABS: BASO # 0.1 10^3/uL (0.0-0.2); BASO % 0.9 % (0.0-1.0); EOS # 0.4 10^3/uL (0.0-0.5); EOS % 7.1 % (0.0-3.0); HEMATOCRIT 28.8 % (36.0-47.0); HEMOGLOBIN 8.3 g/dl (12.0-15.5); LYMPH # 1.6 10^3/uL (1.5-5.0); LYMPH % 27.7 % (24.0-44.0); MEAN CORPUSCULAR HEMOGLOBIN 24.4 pg (27.0-33.0); MEAN CORPUSCULAR HGB CONC 28.8 g/dl (32.0-36.5); MEAN CORPUSCULAR VOLUME 84.7 fl (80.0-96.0); MONO # 0.4 10^3/uL (0.0-0.8); MONO % 7.3 % (2.0-8.0); NEUTROPHILS % 52.6 % (36.0-66.0); PLATELET COUNT, AUTOMATED 368 10^3/uL (150-450); WHITE BLOOD COUNT 5.7 10^3/uL (4.0-10.0)
[2024-10-17 06:01] LABS: BLOOD UREA NITROGEN 6 MG/DL (9-23); CALCIUM LEVEL 9.4 MG/DL (8.5-10.1); CARBON DIOXIDE LEVEL 27 MMOL/L (20-31); CHLORIDE LEVEL 106 MMOL/L (98-107); CREATININE FOR GFR 0.77 MG/DL (0.55-1.30); GLOMERULAR FILTRATION RATE > 60.0 (>58); GLUCOSE, FASTING 139 MG/DL (60-100); POTASSIUM SERUM 4.5 MMOL/L (3.5-5.1); SODIUM LEVEL 142 MMOL/L (136-145)
[2024-10-17 08:03] VITALS: BP 94/56; TEMP 98.2; O2SAT 96
[2024-10-17 10:45] VITALS: BP 97/46; TEMP 98.4; O2SAT 96
[2024-10-17] MEDS: ALTEPLASE 2MG/2ML VIAL XX PRN (12:00)
[2024-10-17] MEDS: INSULIN LISPRO (NovoLOG) PER UNIT SC SCH (18:00)
[2024-10-17] MEDS: FAT EMULSION IV 250 ML IV ONE (18:05)
[2024-10-17] MEDS: AMINO AC/ELECTROLYTE/DEX/CALC 1,000 ML IV SCH (18:05)
[2024-10-17 20:00] VITALS: BP 103/50; TEMP 97.9; O2SAT 97
[2024-10-18 04:00] VITALS: BP 94/64; TEMP 97.9; O2SAT 97
[2024-10-18 12:00] VITALS: BP 141/75; TEMP 97.9; O2SAT 100
[2024-10-18 12:28] LABS: HEMATOCRIT 27.8 % (36.0-47.0); HEMOGLOBIN 8.4 g/dl (12.0-15.5); MEAN CORPUSCULAR HGB CONC 30.2 g/dl (32.0-36.5); MEAN CORPUSCULAR VOLUME 82.7 fl (80.0-96.0); PLATELET COUNT, AUTOMATED 369 10^3/uL (150-450); RED BLOOD COUNT 3.36 10^6/uL (4.00-5.40); WHITE BLOOD COUNT 6.2 10^3/uL (4.0-10.0)
[2024-10-18 12:53] LABS: ALBUMIN 2.9 G/DL (3.2-5.2); ALKALINE PHOSPHATASE 135 U/L (35-104); ALT/SGPT 16 U/L (7.0-40); AST/SGOT 24 U/L (<34); BILIRUBIN,TOTAL 0.4 MG/DL (0.3-1.2); BLOOD UREA NITROGEN 7 MG/DL (9-23); CALCIUM LEVEL 9.7 MG/DL (8.5-10.1); CARBON DIOXIDE LEVEL 30 MMOL/L (20-31); CHLORIDE LEVEL 103 MMOL/L (98-107); CREATININE FOR GFR 0.81 MG/DL (0.55-1.30); GLOMERULAR FILTRATION RATE > 60.0 (>58); GLUCOSE, FASTING 109 MG/DL (60-100); POTASSIUM SERUM 4.6 MMOL/L (3.5-5.1); SODIUM LEVEL 139 MMOL/L (136-145); TOTAL PROTEIN 7.1 G/DL (5.7-8.2)
[2024-10-18] MEDS: INSULIN LISPRO (NovoLOG) PER UNIT SC SCH (17:37)
[2024-10-18] MEDS: AMINO AC/ELECTROLYTE/DEX/CALC 1,000 ML IV SCH (18:03)
[2024-10-18] MEDS: FAT EMULSION IV 250 ML IV ONE (18:03)
[2024-10-18 23:08] VITALS: BP 93/52; TEMP 97.9; O2SAT 96
[2024-10-19 04:26] VITALS: BP 94/52; TEMP 97.2; O2SAT 96
[2024-10-19 09:21] LABS: HEMATOCRIT 27.2 % (36.0-47.0); MEAN CORPUSCULAR HEMOGLOBIN 24.2 pg (27.0-33.0); MEAN CORPUSCULAR HGB CONC 29.4 g/dl (32.0-36.5); MEAN CORPUSCULAR VOLUME 82.4 fl (80.0-96.0); PLATELET COUNT, AUTOMATED 360 10^3/uL (150-450); WHITE BLOOD COUNT 4.6 10^3/uL (4.0-10.0)
[2024-10-19 09:58] LABS: ALBUMIN 2.8 G/DL (3.2-5.2); ALKALINE PHOSPHATASE 125 U/L (35-104); ALT/SGPT 15 U/L (7.0-40); AST/SGOT 24 U/L (<34); BILIRUBIN,TOTAL 0.4 MG/DL (0.3-1.2); BLOOD UREA NITROGEN 9 MG/DL (9-23); CALCIUM LEVEL 8.7 MG/DL (8.5-10.1); CARBON DIOXIDE LEVEL 24 MMOL/L (20-31); CHLORIDE LEVEL 94 MMOL/L (98-107); CREATININE FOR GFR 0.74 MG/DL (0.55-1.30); GLOMERULAR FILTRATION RATE > 60.0 (>58); GLUCOSE, FASTING 599 MG/DL (60-100); POTASSIUM SERUM 4.1 MMOL/L (3.5-5.1); SODIUM LEVEL 125 MMOL/L (136-145); TOTAL PROTEIN 6.3 G/DL (5.7-8.2)
[2024-10-19 12:00] VITALS: BP 95/55; TEMP 97.2; O2SAT 96
[2024-10-19 12:10] LABS: HEMATOCRIT 29.7 % (36.0-47.0); HEMOGLOBIN 9.1 g/dl (12.0-15.5); MEAN CORPUSCULAR HEMOGLOBIN 24.9 pg (27.0-33.0); MEAN CORPUSCULAR HGB CONC 30.6 g/dl (32.0-36.5); MEAN CORPUSCULAR VOLUME 81.4 fl (80.0-96.0); PLATELET COUNT, AUTOMATED 436 10^3/uL (150-450); RED BLOOD COUNT 3.65 10^6/uL (4.00-5.40); WHITE BLOOD COUNT 4.7 10^3/uL (4.0-10.0)
[2024-10-19 12:38] LABS: ALBUMIN 3.2 G/DL (3.2-5.2); ALKALINE PHOSPHATASE 143 U/L (35-104); ALT/SGPT 17 U/L (7.0-40); AST/SGOT 28 U/L (<34); BILIRUBIN,TOTAL 0.5 MG/DL (0.3-1.2); BLOOD UREA NITROGEN 9 MG/DL (9-23); CALCIUM LEVEL 9.9 MG/DL (8.5-10.1); CARBON DIOXIDE LEVEL 26 MMOL/L (20-31); CHLORIDE LEVEL 102 MMOL/L (98-107); CREATININE FOR GFR 0.82 MG/DL (0.55-1.30); GLOMERULAR FILTRATION RATE > 60.0 (>58); GLUCOSE, FASTING 158 MG/DL (60-100); POTASSIUM SERUM 4.2 MMOL/L (3.5-5.1); SODIUM LEVEL 138 MMOL/L (136-145); TOTAL PROTEIN 7.1 G/DL (5.7-8.2)
[2024-10-19 16:11] VITALS: BP 101/62
[2024-10-19] MEDS: MULTIVITAMIN -ADULT INJECTION 10 ML, ZINC/COPPER/MANGANESE/SELENIUM 1 ML in AMINO AC/EL... IV SCH (17:54)
[2024-10-19] MEDS: FAT EMULSION IV 250 ML IV ONE (17:55)
[2024-10-19] MEDS: INSULIN LISPRO (NovoLOG) PER UNIT SC SCH (17:58)
[2024-10-19 20:00] VITALS: BP 109/61; TEMP 98.1; O2SAT 96
[2024-10-20 04:00] VITALS: BP 110/60; TEMP 97.2; O2SAT 98
[2024-10-20 06:19] LABS: HEMATOCRIT 28.1 % (36.0-47.0); HEMOGLOBIN 8.5 g/dl (12.0-15.5); MEAN CORPUSCULAR HEMOGLOBIN 24.6 pg (27.0-33.0); MEAN CORPUSCULAR HGB CONC 30.2 g/dl (32.0-36.5); MEAN CORPUSCULAR VOLUME 81.4 fl (80.0-96.0); PLATELET COUNT, AUTOMATED 391 10^3/uL (150-450); RED BLOOD COUNT 3.45 10^6/uL (4.00-5.40); WHITE BLOOD COUNT 4.3 10^3/uL (4.0-10.0)
[2024-10-20 06:44] LABS: ALKALINE PHOSPHATASE 132 U/L (35-104); ALT/SGPT 13 U/L (7.0-40); AST/SGOT 21 U/L (<34); BILIRUBIN,TOTAL 0.3 MG/DL (0.3-1.2); BLOOD UREA NITROGEN 10 MG/DL (9-23); CALCIUM LEVEL 9.8 MG/DL (8.5-10.1); CARBON DIOXIDE LEVEL 28 MMOL/L (20-31); CHLORIDE LEVEL 104 MMOL/L (98-107); CREATININE FOR GFR 0.79 MG/DL (0.55-1.30); GLOMERULAR FILTRATION RATE > 60.0 (>58); GLUCOSE, FASTING 153 MG/DL (60-100); POTASSIUM SERUM 4.2 MMOL/L (3.5-5.1); SODIUM LEVEL 138 MMOL/L (136-145); TOTAL PROTEIN 6.9 G/DL (5.7-8.2)
[2024-10-20 09:32] VITALS: BP 110/74
[2024-10-20 12:00] VITALS: BP 109/71; TEMP 97.7; O2SAT 99
[2024-10-20] MEDS: INSULIN LISPRO (NovoLOG) PER UNIT SC SCH (16:38)
[2024-10-20 16:55] VITALS: BP 101/55
[2024-10-20] MEDS: FAT EMULSION IV 250 ML IV ONE (18:12)
[2024-10-20] MEDS: AMINO AC/ELECTROLYTE/DEX/CALC 1,000 ML IV SCH (18:12)
[2024-10-20 20:00] VITALS: BP 109/55; TEMP 96.2; O2SAT 96
[2024-10-21 05:00] VITALS: BP 104/48; TEMP 97.7; O2SAT 96
[2024-10-21 11:39] VITALS: BP 104/54; TEMP 97.7; O2SAT 99
[2024-10-21] MEDS: INSULIN LISPRO (NovoLOG) PER UNIT SC SCH (17:18)
[2024-10-21] MEDS: FAT EMULSION IV 250 ML IV ONE (17:39)
[2024-10-21] MEDS: MULTIVITAMIN -ADULT INJECTION 10 ML, ZINC/COPPER/MANGANESE/SELENIUM 1 ML in AMINO AC/EL... IV SCH (17:40)
[2024-10-21 20:00] VITALS: BP 119/76; TEMP 97.9; O2SAT 98
[2024-10-21] MEDS: LORazepam 0.5 MG TAB JT PRN (21:24)
[2024-10-22 04:00] VITALS: BP 119/62; TEMP 97.7; O2SAT 96
[2024-10-22 07:18] LABS: HEMATOCRIT 27.1 % (36.0-47.0); HEMOGLOBIN 8.1 g/dl (12.0-15.5); MEAN CORPUSCULAR HEMOGLOBIN 24.3 pg (27.0-33.0); MEAN CORPUSCULAR HGB CONC 29.9 g/dl (32.0-36.5); MEAN CORPUSCULAR VOLUME 81.4 fl (80.0-96.0); PLATELET COUNT, AUTOMATED 364 10^3/uL (150-450); RED BLOOD COUNT 3.33 10^6/uL (4.00-5.40); WHITE BLOOD COUNT 3.6 10^3/uL (4.0-10.0)
[2024-10-22 07:35] LABS: BLOOD UREA NITROGEN 11 MG/DL (9-23); CALCIUM LEVEL 9.9 MG/DL (8.5-10.1); CARBON DIOXIDE LEVEL 28 MMOL/L (20-31); CHLORIDE LEVEL 105 MMOL/L (98-107); CREATININE FOR GFR 0.73 MG/DL (0.55-1.30); GLOMERULAR FILTRATION RATE > 60.0 (>58); GLUCOSE, FASTING 162 MG/DL (60-100); MAGNESIUM LEVEL 1.9 MG/DL (1.8-2.4); POTASSIUM SERUM 4.4 MMOL/L (3.5-5.1); SODIUM LEVEL 139 MMOL/L (136-145)
[2024-10-22 08:48] VITALS: BP 108/64
[2024-10-22 11:09] VITALS: BP 108/66
[2024-10-22] MEDS ORDERED: TPN (11:40)
[2024-10-23] MEDS ORDERED: OXYC20TA2 JT (14:07)
== END 2024-10-22 12:27 | disposition home or self-care (01) | DRG 206 ==
LOC: EDBD 13:36 → M ED 13:36 → M ED INP 19:00 → M ICU 21:59 → M PCU 10-15 11:41 → M MSPAV 10-17 10:33
PROVIDERS: ADMIT Internal Medicine Pulmonary Disease; ATTEND Family Medicine
DX: T82.7XXA Infection and inflammatory reaction due to other cardiac and vascular devices, implants and grafts, initial encounter (principal); A41.52 Sepsis due to Pseudomonas; N17.0 Acute kidney failure with tubular necrosis; R65.21 Severe sepsis with septic shock; E87.20 Acidosis, unspecified; D68.59 Other primary thrombophilia; E87.0 Hyperosmolality and hypernatremia; K91.2 Postsurgical malabsorption, not elsewhere classified; I95.89 Other hypotension; G40.209 Localization-related (focal) (partial) symptomatic epilepsy and epileptic syndromes with complex partial seizures, not intractable, without status epilepticus; K31.84 Gastroparesis; E83.39 Other disorders of phosphorus metabolism; Y83.1 Surgical operation with implant of artificial internal device as the cause of abnormal reaction of the patient, or of later complication, without mention of misadventure at the time of the procedure; Z93.4 Other artificial openings of gastrointestinal tract status; K76.0 Fatty (change of) liver, not elsewhere classified; F32.A Depression, unspecified; K21.9 Gastro-esophageal reflux disease without esophagitis; M96.1 Postlaminectomy syndrome, not elsewhere classified; K90.0 Celiac disease; G89.29 Other chronic pain; R74.01 Elevation of levels of liver transaminase levels; J45.909 Unspecified asthma, uncomplicated; F41.9 Anxiety disorder, unspecified; E80.6 Other disorders of bilirubin metabolism; D50.9 Iron deficiency anemia, unspecified; E78.2 Mixed hyperlipidemia; Z86.718 Personal history of other venous thrombosis and embolism; Z86.14 Personal history of Methicillin resistant Staphylococcus aureus infection; Z79.899 Other long term (current) drug therapy; Z88.2 Allergy status to sulfonamides; Z88.1 Allergy status to other antibiotic agents; Z88.6 Allergy status to analgesic agent; Z88.8 Allergy status to other drugs, medicaments and biological substances; Z91.041 Radiographic dye allergy status; Z91.018 Allergy to other foods; Z79.891 Long term (current) use of opiate analgesic

== ENCOUNTER → 2024-10-29 | Outpatient (CLI) | payer BC ==
[~2024-10-29] MED LIST changes: +AMOX875T2 JT; +ENOX40IN3 SQ; +ONDA4INJ4 IV
[2024-10-29 15:50] VITALS: BP 123/76; O2SAT 98
[2024-10-29 16:10] LABS: HEMATOCRIT 28.8 % (36.0-47.0); HEMOGLOBIN 8.6 g/dl (12.0-15.5); MEAN CORPUSCULAR HEMOGLOBIN 23.4 pg (27.0-33.0); MEAN CORPUSCULAR HGB CONC 29.9 g/dl (32.0-36.5); MEAN CORPUSCULAR VOLUME 78.5 fl (80.0-96.0); PLATELET COUNT, AUTOMATED 270 10^3/uL (150-450); RED BLOOD COUNT 3.67 10^6/uL (4.00-5.40); WHITE BLOOD COUNT 5.1 10^3/uL (4.0-10.0)
[2024-10-29 16:34] LABS: BLOOD UREA NITROGEN 13 MG/DL (9-23); CALCIUM LEVEL 9.5 MG/DL (8.5-10.1); CARBON DIOXIDE LEVEL 28 MMOL/L (20-31); CHLORIDE LEVEL 107 MMOL/L (98-107); CREATININE FOR GFR 0.76 MG/DL (0.55-1.30); GLOMERULAR FILTRATION RATE > 60.0 (>58); GLUCOSE, FASTING 96 MG/DL (60-100); MAGNESIUM LEVEL 1.9 MG/DL (1.8-2.4); PHOSPHORUS LEVEL 3.4 MG/DL (2.5-4.9); SODIUM LEVEL 140 MMOL/L (136-145)
== END ==
LOC: M INFU 15:34
PROVIDERS: ATTEND Family Medicine
DX: K31.84 Gastroparesis (principal); Z88.2 Allergy status to sulfonamides; Z88.8 Allergy status to other drugs, medicaments and biological substances; Z91.041 Radiographic dye allergy status

== ENCOUNTER → 2024-10-30 | Outpatient (REF) | payer BC ==
[~2024-10-30] MED LIST changes: +CEFT2INJ4 IV
== END ==
LOC: M SFHCPLAZ 15:20
DX: Z93.4 Other artificial openings of gastrointestinal tract status (principal)

== ENCOUNTER 2024-10-31 11:40 | Inpatient (IN) | payer BC ==
[2024-10-31] VITALS (12 sets, daily range): BP systolic 90–122; BP diastolic 47–99; TEMP 97.9–103.4; O2SAT 93–100
[~2024-10-31] VITALS: Ht 170.2 cm; Wt 80.7 kg
[~2024-10-31 11:40] MED LIST changes: -CEFT2INJ4 IV
[2024-10-31 12:41] LABS: BASO % 0.3 % (0.0-1.0); EOS # 0.1 10^3/uL (0.0-0.5); EOS % 1.2 % (0.0-3.0); HEMATOCRIT 25.1 % (36.0-47.0); HEMOGLOBIN 7.7 g/dl (12.0-15.5); LYMPH # 1.3 10^3/uL (1.5-5.0); LYMPH % 17.7 % (24.0-44.0); MEAN CORPUSCULAR HEMOGLOBIN 24.1 pg (27.0-33.0); MEAN CORPUSCULAR HGB CONC 30.7 g/dl (32.0-36.5); MEAN CORPUSCULAR VOLUME 78.7 fl (80.0-96.0); MONO # 0.8 10^3/uL (0.0-0.8); MONO % 10.5 % (2.0-8.0); NEUTROPHILS # 5.3 10^3/uL (1.5-8.5); NEUTROPHILS % 69.9 % (36.0-66.0); PLATELET COUNT, AUTOMATED 228 10^3/uL (150-450); RED BLOOD COUNT 3.19 10^6/uL (4.00-5.40); WHITE BLOOD COUNT 7.5 10^3/uL (4.0-10.0)
[2024-10-31 12:53] LABS: INR 1.06; PROTHROMBIN TIME 14.2 SECONDS (12.5-14.5)
[2024-10-31 13:04] LABS: ALBUMIN 3.4 G/DL (3.2-5.2); ALKALINE PHOSPHATASE 130 U/L (35-104); ALT/SGPT 14 U/L (7.0-40); AST/SGOT 19 U/L (<34); BILIRUBIN,DIRECT 0.2 MG/DL (<0.4); BILIRUBIN,TOTAL 0.4 MG/DL (0.3-1.2); BLOOD UREA NITROGEN 7 MG/DL (9-23); CALCIUM LEVEL 8.6 MG/DL (8.5-10.1); CARBON DIOXIDE LEVEL 24 MMOL/L (20-31); CHLORIDE LEVEL 104 MMOL/L (98-107); CREATININE FOR GFR 0.71 MG/DL (0.55-1.30); GLOMERULAR FILTRATION RATE > 60.0 (>58); GLUCOSE, FASTING 103 MG/DL (60-100); POTASSIUM SERUM 3.8 MMOL/L (3.5-5.1); SODIUM LEVEL 139 MMOL/L (136-145); TOTAL PROTEIN 6.8 G/DL (5.7-8.2)
[2024-10-31 13:21] LABS: APPEARANCE, URINE HAZY (CLEAR); BACTERIA, URINE AUTO NEGATIVE (NEGATIVE); BILIRUBIN, URINE AUTO NEGATIVE (NEGATIVE); BLOOD, URINE BLOOD NEGATIVE (NEGATIVE); COLOR, URINE YELLOW (YELLOW); GLUCOSE, URINE (UA) AUTO NEGATIVE (NEGATIVE); KETONE, URINE AUTO NEGATIVE (NEGATIVE); LEUKOCYTE ESTERASE, URINE AUTO TRACE (NEGATIVE); MUCUS, URINE SMALL (NEGATIVE); NITRITE, URINE AUTO NEGATIVE (NEGATIVE); PROTEIN, URINE AUTO NEGATIVE (NEGATIVE); RBC, URINE AUTO 1 /HPF (0-3); SPECIFIC GRAVITY URINE AUTO 1.016 (1.002-1.035); SQUAMOUS EPITHELIAL CELL UR AU 2 /HPF (0-6); UROBILINOGEN, URINE AUTO 0.2 mg/dL (0.0-2.0); WBC, URINE AUTO 1 /HPF (0-3)
[2024-10-31] MEDS: ONDANSETRON 4MG 2ML VIAL IV ONE (13:39)
[2024-10-31] MEDS: diphenhydrAMINE 50MG/ML VIAL IV STA (13:39)
[2024-10-31] MEDS: CEFEPIME HCL 2 GM in DEXTROSE 5% (D5W) ADV/MINI-BAG 50 ML IV ONE (13:39)
[2024-10-31] MEDS: NS 500 ML IV ONE (13:40)
[2024-10-31] MEDS: [UNRECOGNIZED DRUG - OTHER] IV ONE (14:26)
[2024-10-31] MEDS: NS 0.9% IV ONE (14:26)
[2024-10-31] MEDS ORDERED: HOME MED LIST COMPLETE! XX SCH (15:30)
[2024-10-31] MEDS ORDERED: VASOPRESSIN IN 0.9 % NACL 20 UNIT in IV 1 EA IV SCH (15:50)
[2024-10-31] MEDS ORDERED: MEROPENEM INJ 2 GM in NS 100 ML IV SCH (15:50)
[2024-10-31] MEDS ORDERED: NOREPINEPHRINE 4MG IN D5 250ML 4 MG in IV 1 EA IV SCH (15:50)
[2024-10-31] MEDS: MEROPENEM INJ 1 GM in IV 1 EA IV SCH ×2 (16:25→18:19)
[2024-10-31] MEDS ORDERED: ALBUTEROL 90 MCG/ACT 8GM HFA INHALER INH PRN (17:10)
[2024-10-31] MEDS ORDERED: LEVETIRACETAM 500 MG/5 ML IV SCH (17:10)
[2024-10-31] MEDS ORDERED: ONDANSETRON 4MG 2ML VIAL IV PRN (17:10)
[2024-10-31 17:13] LABS: PROCALCITONIN 0.52 ng/ml
[2024-10-31] MEDS: LR 1,000 ML IV SCH (18:05)
[2024-10-31] MEDS: fentaNYL 100 MCG/2 ML INJECTION IV STA (18:15)
[2024-10-31] MEDS: HYDROCORTISONE 100MG/2ML VIAL IV ONE (18:18)
[2024-10-31] MEDS: VANCOMYCIN HCL 1,000 MG, VIAL MATE ADAPTER 1 EACH in NS 250 ML IV ONE (18:33)
[2024-10-31] MEDS: oxyCODONE 5MG TAB JT PRN (18:34)
[2024-10-31] MEDS: LORazepam 2 MG/ML 1ML VIAL IV STA (19:00)
[2024-10-31] MEDS: zolPIDEM TARTRATE 5 MG TAB JT SCH (20:30)
[2024-10-31] MEDS: PANTOPRAZOLE 40MG VIAL IV SCH (20:30)
[2024-10-31] MEDS: levETIRAcetam INJection 500 MG in DEXTROSE 5% (D5W) MINI-BAG PLU 100 ML IV SCH (20:30)
[2024-10-31] MEDS: ACETAMINOPHEN 325MG/10.15ML UDC PO ONE (21:43)
[2024-10-31] MEDS: ONDANSETRON 4MG 2ML VIAL IV PRN (21:44)
[2024-10-31] MEDS: VANCOMYCIN HCL 1,000 MG, VIAL MATE ADAPTER 1 EACH in NS 250 ML IV SCH (23:03)
[2024-11-01] VITALS (11 sets, daily range): BP systolic 85–119; BP diastolic 50–66; TEMP 97.1–97.8; O2SAT 94–98
[2024-11-01] MEDS: diphenhydrAMINE 50MG/ML VIAL IV PRN (02:52)
[2024-11-01 04:43] LABS: BASO % 0.5 % (0.0-1.0); EOS % 0.2 % (0.0-3.0); HEMATOCRIT 26.7 % (36.0-47.0); HEMOGLOBIN 8.2 g/dl (12.0-15.5); LYMPH # 0.9 10^3/uL (1.5-5.0); LYMPH % 14.2 % (24.0-44.0); MEAN CORPUSCULAR HEMOGLOBIN 24.3 pg (27.0-33.0); MEAN CORPUSCULAR HGB CONC 30.7 g/dl (32.0-36.5); MONO # 0.5 10^3/uL (0.0-0.8); MONO % 8.2 % (2.0-8.0); NEUTROPHILS # 4.7 10^3/uL (1.5-8.5); NEUTROPHILS % 76.3 % (36.0-66.0); PLATELET COUNT, AUTOMATED 180 10^3/uL (150-450); RED BLOOD COUNT 3.38 10^6/uL (4.00-5.40); WHITE BLOOD COUNT 6.2 10^3/uL (4.0-10.0)
[2024-11-01 05:11] LABS: ALBUMIN 2.5 G/DL (3.2-5.2); ALKALINE PHOSPHATASE 112 U/L (35-104); ALT/SGPT 10 U/L (7.0-40); AST/SGOT 15 U/L (<34); BILIRUBIN,TOTAL 0.5 MG/DL (0.3-1.2); BLOOD UREA NITROGEN < 5 MG/DL (9-23); CALCIUM LEVEL 8.1 MG/DL (8.5-10.1); CARBON DIOXIDE LEVEL 26 MMOL/L (20-31); CHLORIDE LEVEL 110 MMOL/L (98-107); CREATININE FOR GFR 0.51 MG/DL (0.55-1.30); GLOMERULAR FILTRATION RATE > 60.0 (>58); GLUCOSE, FASTING 165 MG/DL (60-100); MAGNESIUM LEVEL 1.7 MG/DL (1.8-2.4); PHOSPHORUS LEVEL 3.4 MG/DL (2.5-4.9); SODIUM LEVEL 144 MMOL/L (136-145); TOTAL PROTEIN 5.5 G/DL (5.7-8.2)
[2024-11-01] MEDS: MAG SULF 1GM/100ML (MAG RUN) 1 GM in IV 1 EA IV ONE (06:07)
[2024-11-01] MEDS: MIDODRINE 5 MG TAB PO SCH (10:00)
[2024-11-01] MEDS: ENOXAPARIN 40MG/0.4ML SYRINGE (J1650 PER 10MG) SC SCH (10:01)
[2024-11-01 12:36] LABS: IRON (FE) 20 UG/DL (50-170); PERCENT SATURATION 8.1 % (13.2-45.0); TOTAL IRON BINDING CAPACITY 248 UG/DL (250-425)
[2024-11-01 12:38] LABS: FERRITIN 38.7 NG/ML (7.3-270.7); FOLATE 19.2 NG/ML (>5.4)
[2024-11-01 12:39] LABS: VITAMIN B12 LEVEL 460 PG/ML (211-911)
[2024-11-01] MEDS: FLUoxetine 20MG CAP JT SCH (14:11)
[2024-11-02 03:33] VITALS: BP 121/62; TEMP 97.6; O2SAT 96
[2024-11-02 03:52] LABS: HEMATOCRIT 29.5 % (36.0-47.0); MEAN CORPUSCULAR HEMOGLOBIN 24.4 pg (27.0-33.0); MEAN CORPUSCULAR HGB CONC 30.5 g/dl (32.0-36.5); MEAN CORPUSCULAR VOLUME 79.9 fl (80.0-96.0); PLATELET COUNT, AUTOMATED 228 10^3/uL (150-450); RED BLOOD COUNT 3.69 10^6/uL (4.00-5.40)
[2024-11-02 04:22] LABS: ALBUMIN 2.5 G/DL (3.2-5.2); ALKALINE PHOSPHATASE 106 U/L (35-104); ALT/SGPT 12 U/L (7.0-40); AST/SGOT 17 U/L (<34); BILIRUBIN,TOTAL 0.3 MG/DL (0.3-1.2); BLOOD UREA NITROGEN < 5 MG/DL (9-23); CALCIUM LEVEL 8.2 MG/DL (8.5-10.1); CARBON DIOXIDE LEVEL 26 MMOL/L (20-31); CHLORIDE LEVEL 111 MMOL/L (98-107); CREATININE FOR GFR 0.57 MG/DL (0.55-1.30); GLOMERULAR FILTRATION RATE > 60.0 (>58); GLUCOSE, FASTING 105 MG/DL (60-100); POTASSIUM SERUM 3.9 MMOL/L (3.5-5.1); SODIUM LEVEL 146 MMOL/L (136-145); TOTAL PROTEIN 5.7 G/DL (5.7-8.2)
[2024-11-02 08:00] VITALS: BP 125/67; TEMP 97.4; O2SAT 96
[2024-11-02] MEDS: SODIUM CHLORIDE 0.9% INJ 10 ML SYR IV SCH (08:36)
[2024-11-02] MEDS ORDERED: [UNRECOGNIZED DRUG - NUTRITION] IV SCH (09:00)
[2024-11-02] MEDS ORDERED: ceFAZolin 2 GM/D5W 50 ML IV BAG As Ordered ONE (13:09)
[2024-11-02] MEDS ORDERED: LIDOCAINE 1% MDV 20ML VIAL As Ordered ONE (13:09)
[2024-11-02] MEDS ORDERED: LIDOCAINE 2% JELLY 6ML SYRINGE As Ordered ONE (13:09)
[2024-11-02] MEDS ORDERED: ISOVUE-300 61% 100ML VIAL As Ordered ONE (13:09)
[2024-11-02] MEDS ORDERED: fentaNYL 100 MCG/2 ML INJECTION As Ordered ONE (13:16)
[2024-11-02] MEDS ORDERED: MIDAZOLAM INJ 2MG/2ML VIAL As Ordered ONE (13:16)
[2024-11-02] MEDS ORDERED: propofoL 200 MG/20 ML VIAL As Ordered ONE (13:18)
[2024-11-02] MEDS ORDERED: dexmedeTOMIDine (4MCG/ML)200MCG/50ML BTL (PRECEDEX) As Ordered ONE (13:18)
[2024-11-02] MEDS: ceFAZolin SOD 2 GM in IV 1 EA IV ONE (13:30)
[2024-11-02] MEDS ORDERED: ACETAMINOPHEN 1000MG/100ML IV BAG As Ordered ONE (13:40)
[2024-11-02] MEDS ORDERED: METOCLOPRAMIDE INJ 10MG/2ML VIAL As Ordered ONE (13:52)
[2024-11-02 16:49] VITALS: BP 132/73; TEMP 97.3; O2SAT 97
[2024-11-02] MEDS: cefTRIAXone SOD 2 GM in DEXTROSE 5% (D5W) ADV/MINI-BAG 50 ML IV SCH (20:06)
[2024-11-02 20:13] VITALS: BP 128/82; TEMP 97.8; O2SAT 97
[2024-11-02] MEDS: NS (Normal Saline) 0.9% 1,000 ML IV SCH (23:04)
[2024-11-03 04:26] LABS: HEMATOCRIT 30.1 % (36.0-47.0); MEAN CORPUSCULAR HEMOGLOBIN 24.1 pg (27.0-33.0); MEAN CORPUSCULAR HGB CONC 29.9 g/dl (32.0-36.5); MEAN CORPUSCULAR VOLUME 80.5 fl (80.0-96.0); PLATELET COUNT, AUTOMATED 262 10^3/uL (150-450); RED BLOOD COUNT 3.74 10^6/uL (4.00-5.40); WHITE BLOOD COUNT 4.2 10^3/uL (4.0-10.0)
[2024-11-03 04:48] LABS: IMMUNOGLOBULIN A 223.9 MG/DL (40-350)
[2024-11-03 04:49] LABS: ALBUMIN 2.6 G/DL (3.2-5.2); ALKALINE PHOSPHATASE 105 U/L (35-104); ALT/SGPT 11 U/L (7.0-40); AST/SGOT 15 U/L (<34); BILIRUBIN,TOTAL 0.2 MG/DL (0.3-1.2); BLOOD UREA NITROGEN < 5 MG/DL (9-23); CALCIUM LEVEL 8.8 MG/DL (8.5-10.1); CARBON DIOXIDE LEVEL 30 MMOL/L (20-31); CHLORIDE LEVEL 107 MMOL/L (98-107); CREATININE FOR GFR 0.61 MG/DL (0.55-1.30); GLOMERULAR FILTRATION RATE > 60.0 (>58); GLUCOSE, FASTING 91 MG/DL (60-100); SODIUM LEVEL 142 MMOL/L (136-145)
[2024-11-03 07:37] VITALS: BP 117/65; O2SAT 98
[2024-11-03 08:12] VITALS: TEMP 97.3
[2024-11-03 12:23] VITALS: BP 121/70; TEMP 98.6; O2SAT 96
[2024-11-03 16:00] VITALS: BP 106/59; TEMP 97.9; O2SAT 96
[2024-11-03] MEDS: FAT EMULSION IV 250 ML IV ONE (17:55)
[2024-11-03] MEDS: AMINO AC/ELECTROLYTE/DEX/CALC 2,000 ML IV SCH (17:55)
[2024-11-03] MEDS: INSULIN LISPRO (NovoLOG) PER UNIT SC SCH (17:56)
[2024-11-03 19:36] VITALS: BP 122/65; TEMP 97.7; O2SAT 95
[2024-11-04 03:07] VITALS: BP 112/62; TEMP 97.4; O2SAT 96
[2024-11-04 08:31] VITALS: BP 125/67; TEMP 97.7; O2SAT 96
[2024-11-04] MEDS: LORazepam 0.5 MG TAB JT PRN (08:37)
[2024-11-04] MEDS ORDERED: CEFT2INJ4 IV (14:48)
[2024-11-04] MEDS ORDERED: FAT EMULSION IV 250 ML IV ONE ×2 (18:00)
[2024-11-04] MEDS ORDERED: MULTIVITAMIN -ADULT INJECTION 10 ML, ZINC/COPPER/MANGANESE/SELENIUM 1 ML in AMINO AC/EL... IV SCH (18:00)
[2024-11-04] MEDS ORDERED: SODIUM ACETATE IV SCH (18:00)
[2024-11-04] MEDS ORDERED: SODIUM CHLORIDE IV SCH (18:00)
[2024-11-04] MEDS ORDERED: INSULIN LISPRO (NovoLOG) PER UNIT SC SCH (18:00)
[2024-11-04] MEDS ORDERED: [UNRECOGNIZED DRUG - OTHER] IV SCH (18:00)
== END 2024-11-04 15:57 | disposition home or self-care (01) | DRG 711 ==
LOC: M ED 11:40 → M ED INP 15:46 → M ICU 17:48 → M PCU 11-03 07:35
PROVIDERS: ADMIT Internal Medicine Pulmonary Disease; ATTEND Internal Medicine Pulmonary Disease
PROC: 30233N1 Transfusion of Nonautologous Red Blood Cells into Peripheral Vein, Percutaneous Approach (ICD-10-PCS; principal; 2024-10-31)
PROC: 0D2DXUZ Change Feeding Device in Lower Intestinal Tract, External Approach (ICD-10-PCS; 2024-11-02)
PROC: 06PY33Z Removal of Infusion Device from Lower Vein, Percutaneous Approach (ICD-10-PCS; 2024-11-02 13:00)
PROC: 0JH60XZ Insertion of Tunneled Vascular Access Device into Chest Subcutaneous Tissue and Fascia, Open Approach (ICD-10-PCS; 2024-11-02 13:00)
DX: T80.219A Unspecified infection due to central venous catheter, initial encounter (principal); R65.21 Severe sepsis with septic shock; K91.2 Postsurgical malabsorption, not elsewhere classified; A41.9 Sepsis, unspecified organism; E83.42 Hypomagnesemia; R56.9 Unspecified convulsions; K31.84 Gastroparesis; K76.0 Fatty (change of) liver, not elsewhere classified; D64.9 Anemia, unspecified; F39 Unspecified mood [affective] disorder; M54.9 Dorsalgia, unspecified; G89.29 Other chronic pain; K21.9 Gastro-esophageal reflux disease without esophagitis; J45.909 Unspecified asthma, uncomplicated; E78.2 Mixed hyperlipidemia; Z90.49 Acquired absence of other specified parts of digestive tract; Z79.891 Long term (current) use of opiate analgesic; Z79.899 Other long term (current) drug therapy; Z88.1 Allergy status to other antibiotic agents; Z88.2 Allergy status to sulfonamides; Z88.6 Allergy status to analgesic agent; Z91.041 Radiographic dye allergy status; Z91.018 Allergy to other foods; Z98.84 Bariatric surgery status; Z88.8 Allergy status to other drugs, medicaments and biological substances

== ENCOUNTER → 2024-11-13 | Outpatient (CLI) | payer BC ==
[~2024-11-13] MED LIST changes: +CEFT2INJ4 IV
[2024-11-13 12:00] VITALS: BP 125/73; O2SAT 98
[2024-11-13 12:03] LABS: HEMATOCRIT 34.2 % (36.0-47.0); HEMOGLOBIN 10.4 g/dl (12.0-15.5); MEAN CORPUSCULAR HGB CONC 30.4 g/dl (32.0-36.5); PLATELET COUNT, AUTOMATED 262 10^3/uL (150-450); RED BLOOD COUNT 4.33 10^6/uL (4.00-5.40); WHITE BLOOD COUNT 3.3 10^3/uL (4.0-10.0)
[2024-11-13 13:56] LABS: BLOOD UREA NITROGEN < 5 MG/DL (9-23); CALCIUM LEVEL 9.3 MG/DL (8.5-10.1); CARBON DIOXIDE LEVEL 30 MMOL/L (20-31); CHLORIDE LEVEL 102 MMOL/L (98-107); CREATININE FOR GFR 0.56 MG/DL (0.55-1.30); GLOMERULAR FILTRATION RATE > 60.0 (>58); GLUCOSE, FASTING 117 MG/DL (60-100); MAGNESIUM LEVEL 2.1 MG/DL (1.8-2.4); PHOSPHORUS LEVEL 3.1 MG/DL (2.5-4.9); POTASSIUM SERUM 3.9 MMOL/L (3.5-5.1); SODIUM LEVEL 141 MMOL/L (136-145)
== END ==
LOC: M INFU 11:13
PROVIDERS: ATTEND Family Medicine
DX: K31.84 Gastroparesis (principal); Z88.2 Allergy status to sulfonamides; Z88.8 Allergy status to other drugs, medicaments and biological substances; Z91.041 Radiographic dye allergy status

== ENCOUNTER → 2024-11-23 | Outpatient (CLI) | payer BC | LOC: M WUC 09:24 | PROVIDERS: ATTEND Student in an Organized Health Care Education/Training Program | DX: J20.9 Acute bronchitis, unspecified (principal) ==

== ENCOUNTER → 2024-11-23 | Outpatient (CLI) | payer BC | LOC: M PAL 11:00 | PROVIDERS: ATTEND Family Medicine | DX: Z51.5 Encounter for palliative care (principal); R52 Pain, unspecified; R11.0 Nausea; F41.9 Anxiety disorder, unspecified; G47.00 Insomnia, unspecified; Z98.84 Bariatric surgery status; K31.84 Gastroparesis; K90.829 Short bowel syndrome, unspecified; K92.2 Gastrointestinal hemorrhage, unspecified; Z93.1 Gastrostomy status; Z79.891 Long term (current) use of opiate analgesic; Z79.899 Other long term (current) drug therapy; Z88.1 Allergy status to other antibiotic agents; Z88.2 Allergy status to sulfonamides; Z88.5 Allergy status to narcotic agent; Z88.6 Allergy status to analgesic agent; Z88.8 Allergy status to other drugs, medicaments and biological substances; Z91.018 Allergy to other foods; Z91.041 Radiographic dye allergy status ==

== ENCOUNTER 2024-11-29 12:27 | Emergency (ER) | payer BC ==
[~2024-11-29] VITALS: Ht 170.2 cm; Wt 73.0 kg
[2024-11-29] MEDS ORDERED: SODIUM CHLORIDE 0.9% INJ 10 ML SYR IV PRN (13:05)
[2024-11-29] MEDS: SODIUM CHLORIDE 0.9% INJ 10 ML SYR IV SCH (13:18)
[2024-11-29 13:28] LABS: BASO % 0.2 % (0.0-1.0); EOS % 0.2 % (0.0-3.0); HEMATOCRIT 33.8 % (36.0-47.0); HEMOGLOBIN 10.3 g/dl (12.0-15.5); LYMPH % 8.1 % (24.0-44.0); MEAN CORPUSCULAR HEMOGLOBIN 23.8 pg (27.0-33.0); MEAN CORPUSCULAR HGB CONC 30.5 g/dl (32.0-36.5); MEAN CORPUSCULAR VOLUME 78.1 fl (80.0-96.0); MONO # 0.7 10^3/uL (0.0-0.8); NEUTROPHILS # 10.5 10^3/uL (1.5-8.5); PLATELET COUNT, AUTOMATED 440 10^3/uL (150-450); RED BLOOD COUNT 4.33 10^6/uL (4.00-5.40); WHITE BLOOD COUNT 12.3 10^3/uL (4.0-10.0)
[2024-11-29] MEDS: ONDANSETRON 4MG 2ML VIAL IV ONE (13:30)
[2024-11-29] MEDS: PANTOPRAZOLE 40MG VIAL IV ONE (13:30)
[2024-11-29] MEDS: diphenhydrAMINE 50MG/ML VIAL IV STA (13:30)
[2024-11-29] MEDS: NS (Normal Saline) 0.9% 1,000 ML IV STA (13:31)
[2024-11-29 13:43] LABS: INR 1.15; PARTIAL THROMBOPLASTIN TIME 25.3 SECONDS (24.8-34.2)
[2024-11-29 13:51] LABS: LIPASE 46 U/L (12-53)
[2024-11-29 13:53] LABS: ALBUMIN 3.5 G/DL (3.2-5.2); ALKALINE PHOSPHATASE 140 U/L (35-104); ALT/SGPT 19 U/L (7.0-40); AST/SGOT 18 U/L (<34); BILIRUBIN,TOTAL 0.3 MG/DL (0.3-1.2); BLOOD UREA NITROGEN 14 MG/DL (9-23); CALCIUM LEVEL 9.8 MG/DL (8.5-10.1); CARBON DIOXIDE LEVEL 23 MMOL/L (20-31); CHLORIDE LEVEL 103 MMOL/L (98-107); CREATININE FOR GFR 0.73 MG/DL (0.55-1.30); GLOMERULAR FILTRATION RATE > 60.0 (>58); GLUCOSE, FASTING 251 MG/DL (60-100); POTASSIUM SERUM 3.7 MMOL/L (3.5-5.1); SODIUM LEVEL 140 MMOL/L (136-145)
[2024-11-29] MEDS: MORPHINE 2 MG/ML 1ML VIAL IV ONE (14:08)
[2024-11-29] MEDS: MORPHINE 4 MG/ML 1ML VIAL IV ONE (15:55)
[2024-11-29 16:30] VITALS: BP 145/66
[2024-11-29 16:31] VITALS: TEMP 98.5; O2SAT 99
== END 2024-11-29 16:45 | disposition short-term general hospital (02) ==
LOC: M ED 12:27
DX: K92.2 Gastrointestinal hemorrhage, unspecified (principal); Z88.2 Allergy status to sulfonamides; Z88.5 Allergy status to narcotic agent; Z88.6 Allergy status to analgesic agent; Z88.8 Allergy status to other drugs, medicaments and biological substances; Z91.041 Radiographic dye allergy status; Z91.018 Allergy to other foods; Z79.51 Long term (current) use of inhaled steroids; Z79.899 Other long term (current) drug therapy
CPT/HCPCS: 74176; 80053; 83690; 85025; 85610; 85730; 86850; 86900; 86901; 96361; 96374; 96375; 96376; 99284; J1200; J2405; J2470

== ENCOUNTER → 2024-12-03 | Outpatient (REF) | payer BC ==
[~2024-12-03] MED LIST changes: +PROC25SU27 RC; +SUCR1TA JT
[2024-12-03 19:00] LABS: APPEARANCE, URINE HAZY (CLEAR); BACTERIA, URINE AUTO 1+ (NEGATIVE); BILIRUBIN, URINE AUTO NEGATIVE (NEGATIVE); BLOOD, URINE BLOOD NEGATIVE (NEGATIVE); COLOR, URINE YELLOW (YELLOW); GLUCOSE, URINE (UA) AUTO NEGATIVE (NEGATIVE); GRANULAR CAST, URINE AUTO 1 /LPF; KETONE, URINE AUTO NEGATIVE (NEGATIVE); LEUKOCYTE ESTERASE, URINE AUTO 3+ (NEGATIVE); MUCUS, URINE SMALL (NEGATIVE); NITRITE, URINE AUTO NEGATIVE (NEGATIVE); PROTEIN, URINE AUTO 3+ mg/dL (NEGATIVE); RBC, URINE AUTO 5 /HPF (0-3); SPECIFIC GRAVITY URINE AUTO 1.019 (1.002-1.035); SQUAMOUS EPITHELIAL CELL UR AU 7 /HPF (0-6); TRANSITIONAL EPITHELIAL AUTO <1 /HPF; WBC, URINE AUTO 26 /HPF (0-3)
== END ==
LOC: M SFHCPLAZ 16:58
PROVIDERS: ATTEND Family Medicine
DX: N39.0 Urinary tract infection, site not specified (principal)

== ENCOUNTER 2024-12-04 08:05 | Inpatient (IN) | payer BC ==
[~2024-12-04] VITALS: Ht 170.2 cm; Wt 78.4 kg
[2024-12-04] VITALS (8 sets, daily range): BP systolic 90–104; BP diastolic 52–54; TEMP 97.5–100.3; O2SAT 94–99
[~2024-12-04 08:05] MED LIST changes: +CARI-555 PO; -CARI1TAB7 PO; -PROC25SU27 RC; -SUCR1TA JT
[2024-12-04] MEDS: LEVETIRACETAM 500 MG/5 ML IV SCH (09:00)
[2024-12-04] MEDS: ENOXAPARIN 40MG/0.4ML SYRINGE (J1650 PER 10MG) SQ SCH (09:00)
[2024-12-04 09:14] LABS: BASO % 0.3 % (0.0-1.0); EOS # 0.1 10^3/uL (0.0-0.5); EOS % 1.2 % (0.0-3.0); HEMATOCRIT 23.1 % (36.0-47.0); HEMOGLOBIN 7.1 g/dl (12.0-15.5); LYMPH # 0.7 10^3/uL (1.5-5.0); LYMPH % 6.7 % (24.0-44.0); MEAN CORPUSCULAR HEMOGLOBIN 24.1 pg (27.0-33.0); MEAN CORPUSCULAR HGB CONC 30.7 g/dl (32.0-36.5); MEAN CORPUSCULAR VOLUME 78.6 fl (80.0-96.0); MONO # 0.8 10^3/uL (0.0-0.8); MONO % 7.6 % (2.0-8.0); NEUTROPHILS # 9.3 10^3/uL (1.5-8.5); NEUTROPHILS % 83.6 % (36.0-66.0); PLATELET COUNT, AUTOMATED 301 10^3/uL (150-450); RED BLOOD COUNT 2.94 10^6/uL (4.00-5.40); WHITE BLOOD COUNT 11.1 10^3/uL (4.0-10.0)
[2024-12-04] MEDS: ACETAMINOPHEN 500 MG TAB PO ONE (09:35)
[2024-12-04 09:40] LABS: LIPASE 27 U/L (12-53)
[2024-12-04 09:47] LABS: ALBUMIN 2.8 G/DL (3.2-5.2); ALKALINE PHOSPHATASE 145 U/L (35-104); ALT/SGPT 18 U/L (7.0-40); AST/SGOT 30 U/L (<34); BILIRUBIN,DIRECT 0.4 MG/DL (<0.4); BILIRUBIN,TOTAL 0.9 MG/DL (0.3-1.2); BLOOD UREA NITROGEN 9 MG/DL (9-23); CALCIUM LEVEL 8.4 MG/DL (8.5-10.1); CARBON DIOXIDE LEVEL 25 MMOL/L (20-31); CHLORIDE LEVEL 102 MMOL/L (98-107); CREATININE FOR GFR 0.88 MG/DL (0.55-1.30); GLOMERULAR FILTRATION RATE > 60.0 (>58); GLUCOSE, FASTING 173 MG/DL (60-100); POTASSIUM SERUM 3.6 MMOL/L (3.5-5.1); SODIUM LEVEL 135 MMOL/L (136-145); TOTAL PROTEIN 6.2 G/DL (5.7-8.2)
[2024-12-04 10:06] LABS: APPEARANCE, URINE HAZY (CLEAR); BACTERIA, URINE AUTO NEGATIVE (NEGATIVE); BILIRUBIN, URINE AUTO NEGATIVE (NEGATIVE); BLOOD, URINE BLOOD NEGATIVE (NEGATIVE); COLOR, URINE YELLOW (YELLOW); GLUCOSE, URINE (UA) AUTO NEGATIVE (NEGATIVE); KETONE, URINE AUTO NEGATIVE (NEGATIVE); LEUKOCYTE ESTERASE, URINE AUTO NEGATIVE (NEGATIVE); MUCUS, URINE SMALL (NEGATIVE); NITRITE, URINE AUTO NEGATIVE (NEGATIVE); PROTEIN, URINE AUTO 2+ mg/dL (NEGATIVE); RBC, URINE AUTO 3 /HPF (0-3); SPECIFIC GRAVITY URINE AUTO 1.017 (1.002-1.035); SQUAMOUS EPITHELIAL CELL UR AU 4 /HPF (0-6); WBC, URINE AUTO 4 /HPF (0-3)
[2024-12-04] MEDS ORDERED: SUCR1TA JT (10:26)
[2024-12-04] MEDS ORDERED: PROC25SU27 RC (10:26)
[2024-12-04] MEDS ORDERED: HOME MED LIST COMPLETE! XX SCH (10:30)
[2024-12-04] MEDS: PIPERACILLIN/TAZOBACTAM SOD 4.5 GM in DEXTROSE 5% (D5W) ADV/MINI-BAG 50 ML IV ONE (10:50)
[2024-12-04 11:12] LABS: IRON (FE) < 5 UG/DL (50-170); PERCENT SATURATION 2.1 % (13.2-45.0); TOTAL IRON BINDING CAPACITY 242 UG/DL (250-425)
[2024-12-04 11:13] LABS: FOLATE > 24.00 NG/ML (>5.4)
[2024-12-04 11:14] LABS: VITAMIN B12 LEVEL 536 PG/ML (211-911)
[2024-12-04 11:23] LABS: PROCALCITONIN 1.31 ng/ml
[2024-12-04] MEDS: SUCRALFATE 1 GM TAB JT SCH (13:00)
[2024-12-04] MEDS ORDERED: LEVETIRACETAM 500 MG/5 ML IV SCH (13:30)
[2024-12-04] MEDS ORDERED: PIPERACILLIN/TAZOBACTAM SOD 3.375 GM in DEXTROSE 5% (D5W) ADV/MINI-BAG 50 ML IV SCH (13:45)
[2024-12-04] MEDS: NS (Normal Saline) 0.9% 1,000 ML IV ONE (13:55)
[2024-12-04] MEDS: ONDANSETRON 4MG 2ML VIAL IV PRN (17:07)
[2024-12-04] MEDS: diphenhydrAMINE 50MG/ML VIAL IV PRN (17:07)
[2024-12-04] MEDS: PIPERACILLIN/TAZOBACTAM SOD 4.5 GM in DEXTROSE 5% (D5W) ADV/MINI-BAG 50 ML IV SCH (18:00)
[2024-12-04] MEDS: ACETAMINOPHEN 325 MG TAB PO PRN (18:52)
[2024-12-04] MEDS: oxyCODONE 5MG TAB JT PRN (18:53)
[2024-12-04] MEDS: PANTOPRAZOLE 40MG VIAL IV SCH (21:34)
[2024-12-04] MEDS: zolPIDEM TARTRATE 5 MG TAB JT SCH (21:35)
[2024-12-04] MEDS: levETIRAcetam INJection 500 MG in DEXTROSE 5% (D5W) MINI-BAG PLU 100 ML IV SCH (21:37)
[2024-12-04] MEDS ORDERED: PROMETHAZINE 25MG/ML 1ML VIAL IV PRN (23:10)
[2024-12-05] VITALS (9 sets, daily range): BP systolic 91–108; BP diastolic 46–69; TEMP 97.8–101.5; O2SAT 93–98
[2024-12-05] MEDS: NS (Normal Saline) 0.9% 1,000 ML IV ONE (13:11)
[2024-12-05 13:29] LABS: BASO % 0.3 % (0.0-1.0); EOS # 0.3 10^3/uL (0.0-0.5); EOS % 4.5 % (0.0-3.0); HEMATOCRIT 26.3 % (36.0-47.0); HEMOGLOBIN 8.2 g/dl (12.0-15.5); LYMPH # 0.5 10^3/uL (1.5-5.0); LYMPH % 6.4 % (24.0-44.0); MEAN CORPUSCULAR HEMOGLOBIN 25.1 pg (27.0-33.0); MEAN CORPUSCULAR HGB CONC 31.2 g/dl (32.0-36.5); MEAN CORPUSCULAR VOLUME 80.4 fl (80.0-96.0); MONO # 0.7 10^3/uL (0.0-0.8); MONO % 9.6 % (2.0-8.0); NEUTROPHILS # 5.6 10^3/uL (1.5-8.5); NEUTROPHILS % 78.8 % (36.0-66.0); PLATELET COUNT, AUTOMATED 236 10^3/uL (150-450); RED BLOOD COUNT 3.27 10^6/uL (4.00-5.40); WHITE BLOOD COUNT 7.2 10^3/uL (4.0-10.0)
[2024-12-05 14:00] LABS: BLOOD UREA NITROGEN 6 MG/DL (9-23); CARBON DIOXIDE LEVEL 26 MMOL/L (20-31); CHLORIDE LEVEL 102 MMOL/L (98-107); CREATININE FOR GFR 0.98 MG/DL (0.55-1.30); GLOMERULAR FILTRATION RATE > 60.0 (>58); GLUCOSE, FASTING 172 MG/DL (60-100); SODIUM LEVEL 138 MMOL/L (136-145)
[2024-12-05] MEDS: FAT EMULSION IV 250 ML IV ONE (17:41)
[2024-12-05] MEDS: AMINO AC/ELECTROLYTE/DEX/CALC 1,000 ML IV SCH (17:41)
[2024-12-05] MEDS: diphenhydrAMINE 50MG/ML VIAL IM STA (20:20)
[2024-12-06] VITALS (10 sets, daily range): BP systolic 90–116; BP diastolic 49–60; TEMP 98.1–100.7; O2SAT 93–96
[2024-12-06 06:49] LABS: BASO % 0.4 % (0.0-1.0); EOS # 0.3 10^3/uL (0.0-0.5); EOS % 7.1 % (0.0-3.0); HEMATOCRIT 24.9 % (36.0-47.0); HEMOGLOBIN 7.9 g/dl (12.0-15.5); LYMPH # 0.5 10^3/uL (1.5-5.0); LYMPH % 10.5 % (24.0-44.0); MEAN CORPUSCULAR HEMOGLOBIN 25.6 pg (27.0-33.0); MEAN CORPUSCULAR HGB CONC 31.7 g/dl (32.0-36.5); MEAN CORPUSCULAR VOLUME 80.6 fl (80.0-96.0); MONO # 0.6 10^3/uL (0.0-0.8); MONO % 11.9 % (2.0-8.0); NEUTROPHILS # 3.3 10^3/uL (1.5-8.5); NEUTROPHILS % 69.7 % (36.0-66.0); PLATELET COUNT, AUTOMATED 234 10^3/uL (150-450); RED BLOOD COUNT 3.09 10^6/uL (4.00-5.40); WHITE BLOOD COUNT 4.8 10^3/uL (4.0-10.0)
[2024-12-06 07:20] LABS: BLOOD UREA NITROGEN < 5 MG/DL (9-23); CALCIUM LEVEL 8.2 MG/DL (8.5-10.1); CARBON DIOXIDE LEVEL 29 MMOL/L (20-31); CHLORIDE LEVEL 107 MMOL/L (98-107); CREATININE FOR GFR 0.87 MG/DL (0.55-1.30); GLOMERULAR FILTRATION RATE > 60.0 (>58); GLUCOSE, FASTING 132 MG/DL (60-100); POTASSIUM SERUM 3.8 MMOL/L (3.5-5.1); SODIUM LEVEL 143 MMOL/L (136-145)
[2024-12-06 08:39] LABS: C REACTIVE PROTEIN QUANTITATIV 16.45 MG/DL (<1.0)
[2024-12-06] MEDS ORDERED: [UNRECOGNIZED DRUG - NUTRITION] IV SCH (09:00)
[2024-12-07] VITALS (8 sets, daily range): BP systolic 91–107; BP diastolic 46–68; TEMP 97.6–100.2; O2SAT 93–97
[2024-12-07 02:46] LABS: APPEARANCE, URINE CLEAR (CLEAR); BACTERIA, URINE AUTO NEGATIVE (NEGATIVE); BILIRUBIN, URINE AUTO NEGATIVE (NEGATIVE); BLOOD, URINE BLOOD NEGATIVE (NEGATIVE); COLOR, URINE STRAW (YELLOW); GLUCOSE, URINE (UA) AUTO NEGATIVE (NEGATIVE); KETONE, URINE AUTO NEGATIVE (NEGATIVE); LEUKOCYTE ESTERASE, URINE AUTO NEGATIVE (NEGATIVE); NITRITE, URINE AUTO NEGATIVE (NEGATIVE); PROTEIN, URINE AUTO NEGATIVE (NEGATIVE); RBC, URINE AUTO 0 /HPF (0-3); SPECIFIC GRAVITY URINE AUTO 1.004 (1.002-1.035); SQUAMOUS EPITHELIAL CELL UR AU 0 /HPF (0-6); UROBILINOGEN, URINE AUTO 0.2 mg/dL (0.0-2.0); WBC, URINE AUTO 0 /HPF (0-3)
[2024-12-07 05:15] LABS: BASO % 0.4 % (0.0-1.0); EOS # 0.4 10^3/uL (0.0-0.5); EOS % 6.9 % (0.0-3.0); HEMATOCRIT 27.3 % (36.0-47.0); HEMOGLOBIN 8.6 g/dl (12.0-15.5); LYMPH # 0.7 10^3/uL (1.5-5.0); LYMPH % 13.8 % (24.0-44.0); MEAN CORPUSCULAR HEMOGLOBIN 25.9 pg (27.0-33.0); MEAN CORPUSCULAR HGB CONC 31.5 g/dl (32.0-36.5); MEAN CORPUSCULAR VOLUME 82.2 fl (80.0-96.0); MONO # 0.6 10^3/uL (0.0-0.8); MONO % 11.9 % (2.0-8.0); NEUTROPHILS # 3.5 10^3/uL (1.5-8.5); NEUTROPHILS % 66.2 % (36.0-66.0); PLATELET COUNT, AUTOMATED 233 10^3/uL (150-450); RED BLOOD COUNT 3.32 10^6/uL (4.00-5.40); WHITE BLOOD COUNT 5.2 10^3/uL (4.0-10.0)
[2024-12-07 05:38] LABS: C REACTIVE PROTEIN QUANTITATIV 12.44 MG/DL (<1.0)
[2024-12-07 05:39] LABS: BLOOD UREA NITROGEN < 5 MG/DL (9-23); CALCIUM LEVEL 8.3 MG/DL (8.5-10.1); CARBON DIOXIDE LEVEL 30 MMOL/L (20-31); CHLORIDE LEVEL 104 MMOL/L (98-107); CREATININE FOR GFR 0.94 MG/DL (0.55-1.30); GLOMERULAR FILTRATION RATE > 60.0 (>58); GLUCOSE, FASTING 119 MG/DL (60-100); POTASSIUM SERUM 3.9 MMOL/L (3.5-5.1); SODIUM LEVEL 141 MMOL/L (136-145)
[2024-12-07] MEDS: MULTIVITAMIN -ADULT INJECTION 10 ML, ZINC/COPPER/MANGANESE/SELENIUM 1 ML in AMINO AC/EL... IV SCH (18:53)
[2024-12-07] MEDS: HYDROCORTISONE 1% CREAM 30GM TOP PRN (21:54)
[2024-12-08 03:16] VITALS: BP 102/52; TEMP 98.6; O2SAT 91
[2024-12-08 06:39] LABS: BASO % 0.2 % (0.0-1.0); EOS # 0.4 10^3/uL (0.0-0.5); EOS % 8.3 % (0.0-3.0); HEMATOCRIT 30.1 % (36.0-47.0); HEMOGLOBIN 9.2 g/dl (12.0-15.5); LYMPH # 0.7 10^3/uL (1.5-5.0); LYMPH % 15.6 % (24.0-44.0); MEAN CORPUSCULAR HEMOGLOBIN 25.3 pg (27.0-33.0); MEAN CORPUSCULAR HGB CONC 30.6 g/dl (32.0-36.5); MEAN CORPUSCULAR VOLUME 82.7 fl (80.0-96.0); MONO # 0.5 10^3/uL (0.0-0.8); MONO % 11.2 % (2.0-8.0); NEUTROPHILS # 2.8 10^3/uL (1.5-8.5); PLATELET COUNT, AUTOMATED 278 10^3/uL (150-450); RED BLOOD COUNT 3.64 10^6/uL (4.00-5.40); WHITE BLOOD COUNT 4.4 10^3/uL (4.0-10.0)
[2024-12-08 07:45] LABS: C REACTIVE PROTEIN QUANTITATIV 7.03 MG/DL (<1.0)
[2024-12-08 07:52] LABS: PROCALCITONIN 0.31 ng/ml
[2024-12-08 07:58] LABS: BLOOD UREA NITROGEN < 5 MG/DL (9-23); CALCIUM LEVEL 8.2 MG/DL (8.5-10.1); CARBON DIOXIDE LEVEL 32 MMOL/L (20-31); CHLORIDE LEVEL 103 MMOL/L (98-107); CREATININE FOR GFR 0.84 MG/DL (0.55-1.30); GLOMERULAR FILTRATION RATE > 60.0 (>58); GLUCOSE, FASTING 141 MG/DL (60-100); POTASSIUM SERUM 4.5 MMOL/L (3.5-5.1); SODIUM LEVEL 143 MMOL/L (136-145)
[2024-12-08 08:00] VITALS: BP 102/55; TEMP 97.8; O2SAT 96
[2024-12-08 12:45] VITALS: BP 112/63; TEMP 98; O2SAT 96
[2024-12-08] MEDS ORDERED: LORazepam 0.5 MG TAB JT PRN (17:10)
[2024-12-08] MEDS ORDERED: AZIT20SS2 PO (17:13)
[2024-12-08] MEDS ORDERED: CEFT2INJ4 IV (17:13)
[2024-12-08] MEDS: AMINO AC/ELECTROLYTE/DEX/CALC 1,000 ML IV SCH (17:29)
[2024-12-08] MEDS: cefTRIAXone SOD 2 GM in DEXTROSE 5% (D5W) ADV/MINI-BAG 50 ML IV SCH (17:29)
[2024-12-08] MEDS: AZITHROMYCIN SUSP 200MG/5ML 30ML BOTTLE PO ONE (17:29)
[2024-12-08 19:56] VITALS: BP 110/54; TEMP 97.1; O2SAT 97
[2024-12-09 04:24] VITALS: BP 89/53; TEMP 97.5; O2SAT 95
[2024-12-09 06:36] LABS: BASO % 0.5 % (0.0-1.0); EOS # 0.4 10^3/uL (0.0-0.5); EOS % 9.2 % (0.0-3.0); HEMATOCRIT 31.1 % (36.0-47.0); HEMOGLOBIN 9.6 g/dl (12.0-15.5); LYMPH % 23.2 % (24.0-44.0); MEAN CORPUSCULAR HEMOGLOBIN 25.6 pg (27.0-33.0); MEAN CORPUSCULAR HGB CONC 30.9 g/dl (32.0-36.5); MEAN CORPUSCULAR VOLUME 82.9 fl (80.0-96.0); MONO # 0.4 10^3/uL (0.0-0.8); MONO % 10.2 % (2.0-8.0); NEUTROPHILS # 2.3 10^3/uL (1.5-8.5); NEUTROPHILS % 56.2 % (36.0-66.0); PLATELET COUNT, AUTOMATED 278 10^3/uL (150-450); RED BLOOD COUNT 3.75 10^6/uL (4.00-5.40); WHITE BLOOD COUNT 4.1 10^3/uL (4.0-10.0)
[2024-12-09 06:59] LABS: BLOOD UREA NITROGEN < 5 MG/DL (9-23); CARBON DIOXIDE LEVEL 32 MMOL/L (20-31); CHLORIDE LEVEL 103 MMOL/L (98-107); CREATININE FOR GFR 0.75 MG/DL (0.55-1.30); GLOMERULAR FILTRATION RATE > 60.0 (>58); GLUCOSE, FASTING 162 MG/DL (60-100); POTASSIUM SERUM 4.6 MMOL/L (3.5-5.1); SODIUM LEVEL 142 MMOL/L (136-145)
[2024-12-09 08:00] VITALS: BP 85/47; TEMP 97.3; O2SAT 96
[2024-12-09 10:43] VITALS: BP 90/61
[2024-12-09] MEDS: IRON SUCROSE 100MG 5ML VIAL IV ONE (10:47)
[2024-12-10] MEDS ORDERED: ATIV1TAB10 JT (15:25)
== END 2024-12-09 15:35 | disposition home or self-care (01) | DRG 720 ==
LOC: M ED 08:05 → M ED INP 13:28 → M PCU 21:02
PROVIDERS: ADMIT Internal Medicine Nephrology; ATTEND Internal Medicine
PROC: 30233N1 Transfusion of Nonautologous Red Blood Cells into Peripheral Vein, Percutaneous Approach (ICD-10-PCS; principal; 2024-12-04)
DX: A41.9 Sepsis, unspecified organism (principal); I95.89 Other hypotension; J18.9 Pneumonia, unspecified organism; F11.20 Opioid dependence, uncomplicated; F13.20 Sedative, hypnotic or anxiolytic dependence, uncomplicated; K76.0 Fatty (change of) liver, not elsewhere classified; K90.829 Short bowel syndrome, unspecified; Z93.1 Gastrostomy status; K31.84 Gastroparesis; K21.9 Gastro-esophageal reflux disease without esophagitis; K90.0 Celiac disease; D50.0 Iron deficiency anemia secondary to blood loss (chronic); D63.8 Anemia in other chronic diseases classified elsewhere; E78.2 Mixed hyperlipidemia; G89.29 Other chronic pain; J45.909 Unspecified asthma, uncomplicated; M96.1 Postlaminectomy syndrome, not elsewhere classified; Z79.899 Other long term (current) drug therapy; Z88.2 Allergy status to sulfonamides; Z88.1 Allergy status to other antibiotic agents; Z88.6 Allergy status to analgesic agent; Z88.8 Allergy status to other drugs, medicaments and biological substances; Z91.041 Radiographic dye allergy status; Z91.018 Allergy to other foods; Z95.828 Presence of other vascular implants and grafts

== ENCOUNTER 2024-12-17 07:45 | Outpatient (CLI) | payer BC ==
[~2024-12-17] VITALS: Ht 170.2 cm; Wt 78.0 kg
[~2024-12-17 07:45] MED LIST changes: +AZIT20SS2 PO; +PROC25SU27 RC; +SUCR1TA JT
[2024-12-17 08:00] VITALS: BP 138/77; O2SAT 96
== END 2024-12-17 08:45 ==
LOC: M INFU 07:45
PROVIDERS: ATTEND Family Medicine
DX: Z48.01 Encounter for change or removal of surgical wound dressing (principal)

== ENCOUNTER → 2024-12-31 | Outpatient (CLI) | payer BC ==
[2024-12-31 11:20] LABS: HEMATOCRIT 35.7 % (36.0-47.0)
[2024-12-31 11:21] LABS: BASO % 0.6 % (0.0-1.0); EOS # 0.2 10^3/uL (0.0-0.5); EOS % 3.7 % (0.0-3.0); HEMATOCRIT 36.6 % (36.0-47.0); HEMOGLOBIN 11.5 g/dl (12.0-15.5); LYMPH # 1.9 10^3/uL (1.5-5.0); LYMPH % 37.1 % (24.0-44.0); MEAN CORPUSCULAR HEMOGLOBIN 25.7 pg (27.0-33.0); MEAN CORPUSCULAR HGB CONC 31.4 g/dl (32.0-36.5); MEAN CORPUSCULAR VOLUME 81.9 fl (80.0-96.0); MONO # 0.5 10^3/uL (0.0-0.8); MONO % 8.9 % (2.0-8.0); NEUTROPHILS # 2.6 10^3/uL (1.5-8.5); NEUTROPHILS % 49.5 % (36.0-66.0); PLATELET COUNT, AUTOMATED 283 10^3/uL (150-450); RED BLOOD COUNT 4.47 10^6/uL (4.00-5.40); WHITE BLOOD COUNT 5.2 10^3/uL (4.0-10.0)
[2024-12-31 11:28] LABS: INR 0.94; PARTIAL THROMBOPLASTIN TIME 29.2 SECONDS (24.8-34.2); PROTHROMBIN TIME 12.9 SECONDS (12.5-14.5)
[2024-12-31 11:29] LABS: ERYTHROCYTE SEDIMENTATION RATE 22 mm/hr (0-20)
[2024-12-31 11:59] LABS: ALBUMIN 3.7 G/DL (3.2-5.2); ALKALINE PHOSPHATASE 122 U/L (35-104); ALT/SGPT 17 U/L (7.0-40); AST/SGOT 22 U/L (<34); BILIRUBIN,TOTAL 0.5 MG/DL (0.3-1.2); BLOOD UREA NITROGEN 6 MG/DL (9-23); C REACTIVE PROTEIN QUANTITATIV 0.98 MG/DL (<1.0); CARBON DIOXIDE LEVEL 28 MMOL/L (20-31); CHLORIDE LEVEL 105 MMOL/L (98-107); GLOMERULAR FILTRATION RATE > 60.0 (>58); GLUCOSE, FASTING 105 MG/DL (60-100); IMMUNOGLOBULIN G 1169 MG/DL (650-1600); MAGNESIUM LEVEL 1.8 MG/DL (1.8-2.4); POTASSIUM SERUM 3.4 MMOL/L (3.5-5.1); PTH INTACT 150.8 PG/ML (18.5-88.0); SODIUM LEVEL 141 MMOL/L (136-145)
[2024-12-31 12:00] LABS: IMMUNOGLOBULIN A 245.8 MG/DL (40-350); TOTAL 25(OH) VITAMIN D 13.5 NG/ML (20.0-100.0)
[2024-12-31 12:01] LABS: FERRITIN 95.9 NG/ML (7.3-270.7)
[2024-12-31 12:02] LABS: VITAMIN B12 LEVEL 538 PG/ML (211-911)
[2024-12-31 13:12] LABS: COLLAGEN EPINEPHRINE 113 SECONDS (74-162)
== END ==
LOC: M LAB 10:05
PROVIDERS: ATTEND Family Medicine
DX: D50.0 Iron deficiency anemia secondary to blood loss (chronic) (principal)

== ENCOUNTER 2025-01-04 11:31 | Emergency (ER) | payer BC ==
[~2025-01-04] VITALS: Ht 170.2 cm; Wt 76.0 kg
[2025-01-04] MEDS ORDERED: SODIUM CHLORIDE 0.9% INJ 10 ML SYR IV PRN ×2 (15:45→16:30)
[2025-01-04 16:13] LABS: BASO % 0.4 % (0.0-1.0); EOS # 0.3 10^3/uL (0.0-0.5); EOS % 5.7 % (0.0-3.0); HEMATOCRIT 33.7 % (36.0-47.0); HEMOGLOBIN 10.5 g/dl (12.0-15.5); LYMPH # 1.6 10^3/uL (1.5-5.0); LYMPH % 35.4 % (24.0-44.0); MEAN CORPUSCULAR HEMOGLOBIN 26.2 pg (27.0-33.0); MEAN CORPUSCULAR HGB CONC 31.2 g/dl (32.0-36.5); MONO # 0.4 10^3/uL (0.0-0.8); MONO % 8.5 % (2.0-8.0); NEUTROPHILS # 2.3 10^3/uL (1.5-8.5); NEUTROPHILS % 49.8 % (36.0-66.0); PLATELET COUNT, AUTOMATED 219 10^3/uL (150-450); RED BLOOD COUNT 4.01 10^6/uL (4.00-5.40); WHITE BLOOD COUNT 4.6 10^3/uL (4.0-10.0)
[2025-01-04 16:33] LABS: LIPASE 25 U/L (12-53)
[2025-01-04 16:35] LABS: ALBUMIN 3.2 G/DL (3.2-5.2); ALKALINE PHOSPHATASE 117 U/L (35-104); ALT/SGPT 16 U/L (7.0-40); AST/SGOT 21 U/L (<34); BILIRUBIN,DIRECT 0.1 MG/DL (<0.4); BILIRUBIN,TOTAL 0.4 MG/DL (0.3-1.2); BLOOD UREA NITROGEN 5 MG/DL (9-23); CALCIUM LEVEL 9.5 MG/DL (8.5-10.1); CARBON DIOXIDE LEVEL 31 MMOL/L (20-31); CHLORIDE LEVEL 104 MMOL/L (98-107); CREATININE FOR GFR 0.66 MG/DL (0.55-1.30); GLOMERULAR FILTRATION RATE > 60.0 (>58); GLUCOSE, FASTING 92 MG/DL (60-100); POTASSIUM SERUM 4.2 MMOL/L (3.5-5.1); SODIUM LEVEL 142 MMOL/L (136-145); TOTAL PROTEIN 6.4 G/DL (5.7-8.2)
[2025-01-04 16:38] LABS: HCG, SERUM QUALITATIVE NEGATIVE (NEGATIVE)
[2025-01-04] MEDS ORDERED: diphenhydrAMINE 50MG/ML VIAL IV STA (16:41)
[2025-01-04] MEDS ORDERED: ONDANSETRON 4MG 2ML VIAL IV ONE (16:45)
[2025-01-04] MEDS ORDERED: NS 500 ML IV ONE (16:45)
[2025-01-04] MEDS: diphenhydrAMINE 50MG/ML VIAL IM STA (17:27)
[2025-01-04] MEDS: PROMETHAZINE 25MG/ML 1ML VIAL IM ONE (17:27)
[2025-01-04] MEDS: READI-CAT 2 PO SCH (17:33)
[2025-01-04] MEDS ORDERED: AMOX400S PO (21:51)
[2025-01-04] MEDS: AUGMENTIN BID 400MG/5ML SUSP 50ML BTL JT ONE (21:53)
[2025-01-04 22:04] VITALS: BP 133/68; TEMP 99.2; O2SAT 99
== END 2025-01-04 22:05 | disposition home or self-care (01) ==
LOC: M ED 11:31
DX: K94.23 Gastrostomy malfunction (principal); K21.9 Gastro-esophageal reflux disease without esophagitis; E55.9 Vitamin D deficiency, unspecified; Z88.2 Allergy status to sulfonamides; Z88.6 Allergy status to analgesic agent; Z91.041 Radiographic dye allergy status; Z79.2 Long term (current) use of antibiotics; Z79.51 Long term (current) use of inhaled steroids; Z79.899 Other long term (current) drug therapy
CPT/HCPCS: 74176; 80048; 80076; 83690; 84703; 85025; 93041; 96372; 99284; J1200

== ENCOUNTER → 2025-01-20 | Outpatient (CLI) | payer BC ==
[~2025-01-20] MED LIST changes: +AMOX400S PO
== END ==
LOC: M WHC 13:08
PROVIDERS: ATTEND Family Medicine
DX: Z12.31 Encounter for screening mammogram for malignant neoplasm of breast (principal)

== ENCOUNTER → 2025-01-20 | Outpatient (CLI) | payer BC ==
[2025-01-20 14:45] VITALS: BP 116/81; O2SAT 97
[2025-01-20 15:07] LABS: HEMATOCRIT 34.9 % (36.0-47.0); HEMOGLOBIN 11.3 g/dl (12.0-15.5); MEAN CORPUSCULAR HEMOGLOBIN 26.7 pg (27.0-33.0); MEAN CORPUSCULAR HGB CONC 32.4 g/dl (32.0-36.5); MEAN CORPUSCULAR VOLUME 82.3 fl (80.0-96.0); PLATELET COUNT, AUTOMATED 405 10^3/uL (150-450); RED BLOOD COUNT 4.24 10^6/uL (4.00-5.40); WHITE BLOOD COUNT 6.7 10^3/uL (4.0-10.0)
[2025-01-20 15:30] LABS: ALBUMIN 3.5 G/DL (3.2-5.2); ALKALINE PHOSPHATASE 173 U/L (35-104); ALT/SGPT 24 U/L (7.0-40); AST/SGOT 19 U/L (<34); BILIRUBIN,TOTAL 0.3 MG/DL (0.3-1.2); BLOOD UREA NITROGEN 8 MG/DL (9-23); CALCIUM LEVEL 10.1 MG/DL (8.5-10.1); CARBON DIOXIDE LEVEL 29 MMOL/L (20-31); CHLORIDE LEVEL 103 MMOL/L (98-107); CREATININE FOR GFR 0.67 MG/DL (0.55-1.30); GLOMERULAR FILTRATION RATE > 60.0 (>58); GLUCOSE, FASTING 100 MG/DL (60-100); POTASSIUM SERUM 4.1 MMOL/L (3.5-5.1); SODIUM LEVEL 140 MMOL/L (136-145); TOTAL PROTEIN 7.3 G/DL (5.7-8.2)
[2025-01-20 15:32] LABS: FERRITIN 71.6 NG/ML (7.3-270.7)
== END ==
LOC: M INFU 14:29
PROVIDERS: ATTEND Family Medicine
DX: K31.84 Gastroparesis (principal); Z88.2 Allergy status to sulfonamides; Z88.6 Allergy status to analgesic agent; Z88.8 Allergy status to other drugs, medicaments and biological substances; Z91.041 Radiographic dye allergy status

== ENCOUNTER 2025-01-27 14:00 | Outpatient (CLI) | payer BC ==
[2025-01-27 14:00] VITALS: BP 155/84; O2SAT 99
[~2025-01-27 14:00] MED LIST changes: +SODIUM CHLORIDE 0.9% INJ 10 ML SYR IV PRN; +SODIUM CHLORIDE 0.9% INJ 10 ML SYR IV SCH
[2025-01-27 14:22] LABS: HEMATOCRIT 36.7 % (36.0-47.0); HEMOGLOBIN 11.5 g/dl (12.0-15.5); MEAN CORPUSCULAR HEMOGLOBIN 26.4 pg (27.0-33.0); MEAN CORPUSCULAR HGB CONC 31.3 g/dl (32.0-36.5); MEAN CORPUSCULAR VOLUME 84.4 fl (80.0-96.0); PLATELET COUNT, AUTOMATED 302 10^3/uL (150-450); RED BLOOD COUNT 4.35 10^6/uL (4.00-5.40)
[2025-01-27 14:56] LABS: ALBUMIN 3.5 G/DL (3.2-5.2); ALKALINE PHOSPHATASE 149 U/L (35-104); ALT/SGPT 17 U/L (7.0-40); AST/SGOT 18 U/L (<34); BILIRUBIN,TOTAL 0.3 MG/DL (0.3-1.2); BLOOD UREA NITROGEN < 5 MG/DL (9-23); CALCIUM LEVEL 9.6 MG/DL (8.5-10.1); CARBON DIOXIDE LEVEL 28 MMOL/L (20-31); CHLORIDE LEVEL 102 MMOL/L (98-107); CREATININE FOR GFR 0.64 MG/DL (0.55-1.30); FERRITIN 62.9 NG/ML (7.3-270.7); GLOMERULAR FILTRATION RATE > 90.0 (>58); GLUCOSE, FASTING 123 MG/DL (60-100); POTASSIUM SERUM 3.9 MMOL/L (3.5-5.1); SODIUM LEVEL 138 MMOL/L (136-145); TOTAL PROTEIN 7.1 G/DL (5.7-8.2)
== END 2025-01-27 14:20 ==
LOC: M INFU 14:00
PROVIDERS: ATTEND Family Medicine
DX: K31.84 Gastroparesis (principal)

== ENCOUNTER → 2025-02-04 | Outpatient (CLI) | payer BC ==
[~2025-02-04] MED LIST changes: +MORP1SOL5 PO; -SODIUM CHLORIDE 0.9% INJ 10 ML SYR IV PRN; -SODIUM CHLORIDE 0.9% INJ 10 ML SYR IV SCH
== END ==
LOC: M PAL 15:14
PROVIDERS: ATTEND Physician Assistant
DX: Z51.5 Encounter for palliative care (principal); K31.84 Gastroparesis; K92.2 Gastrointestinal hemorrhage, unspecified; K90.829 Short bowel syndrome, unspecified; Z98.84 Bariatric surgery status; Z98.890 Other specified postprocedural states; Z93.1 Gastrostomy status; R52 Pain, unspecified; R11.0 Nausea; F41.9 Anxiety disorder, unspecified; Z79.891 Long term (current) use of opiate analgesic; Z79.899 Other long term (current) drug therapy; Z88.1 Allergy status to other antibiotic agents; Z88.2 Allergy status to sulfonamides; Z88.8 Allergy status to other drugs, medicaments and biological substances; Z91.018 Allergy to other foods; Z91.041 Radiographic dye allergy status; Z88.6 Allergy status to analgesic agent

== ENCOUNTER 2025-02-11 13:40 | Outpatient (CLI) | payer BC ==
[2025-02-11 13:40] VITALS: BP 111/65; O2SAT 99
[~2025-02-11 13:40] MED LIST changes: -AMBI10TA PO; -FLOM0.4C39 PO; +MORP-138 PO; -MORP10SO PO; +MORP10SO21 PO; -MORP15TASA PO; +TAMS-18 PO; +ZOLP-532 PO; +ZOLP-533 PO
[2025-02-11 13:57] LABS: HEMATOCRIT 29.1 % (36.0-47.0); HEMOGLOBIN 8.8 g/dl (12.0-15.5); MEAN CORPUSCULAR HEMOGLOBIN 26.3 pg (27.0-33.0); MEAN CORPUSCULAR HGB CONC 30.2 g/dl (32.0-36.5); MEAN CORPUSCULAR VOLUME 87.1 fl (80.0-96.0); PLATELET COUNT, AUTOMATED 238 10^3/uL (150-450); RED BLOOD COUNT 3.34 10^6/uL (4.00-5.40); WHITE BLOOD COUNT 5.5 10^3/uL (4.0-10.0)
[2025-02-11 14:27] LABS: ALBUMIN 3.1 G/DL (3.2-5.2); ALKALINE PHOSPHATASE 174 U/L (35-104); ALT/SGPT 43 U/L (7.0-40); AST/SGOT 50 U/L (<34); BILIRUBIN,TOTAL 0.3 MG/DL (0.3-1.2); BLOOD UREA NITROGEN 13 MG/DL (9-23); CALCIUM LEVEL 8.8 MG/DL (8.5-10.1); CARBON DIOXIDE LEVEL 29 MMOL/L (20-31); CHLORIDE LEVEL 108 MMOL/L (98-107); CREATININE FOR GFR 0.72 MG/DL (0.55-1.30); GLOMERULAR FILTRATION RATE > 90.0 (>58); GLUCOSE, FASTING 120 MG/DL (60-100); MAGNESIUM LEVEL 1.9 MG/DL (1.8-2.4); POTASSIUM SERUM 3.7 MMOL/L (3.5-5.1); SODIUM LEVEL 144 MMOL/L (136-145); TOTAL PROTEIN 6.2 G/DL (5.7-8.2)
[2025-02-11 14:29] LABS: FERRITIN 31.6 NG/ML (7.3-270.7)
== END 2025-02-11 13:50 | disposition home or self-care (01) ==
LOC: M INFU 13:40
PROVIDERS: ATTEND Family Medicine
DX: Z48.01 Encounter for change or removal of surgical wound dressing (principal)

== ENCOUNTER 2025-02-18 14:20 | Outpatient (CLI) | payer BC ==
[2025-02-18 14:37] VITALS: BP 143/75; O2SAT 98
[2025-02-18 14:46] LABS: HEMATOCRIT 31.6 % (36.0-47.0); HEMOGLOBIN 9.8 g/dl (12.0-15.5); MEAN CORPUSCULAR HEMOGLOBIN 26.5 pg (27.0-33.0); MEAN CORPUSCULAR VOLUME 85.4 fl (80.0-96.0); PLATELET COUNT, AUTOMATED 409 10^3/uL (150-450); WHITE BLOOD COUNT 9.7 10^3/uL (4.0-10.0)
[2025-02-18] MEDS ORDERED: NYST-38 PO (15:21)
[2025-02-18 15:22] LABS: ALBUMIN 3.6 G/DL (3.2-5.2); BILIRUBIN,TOTAL 0.7 MG/DL (0.3-1.2); CALCIUM LEVEL 9.6 MG/DL (8.5-10.1); CREATININE FOR GFR 0.86 MG/DL (0.55-1.30); GLOMERULAR FILTRATION RATE 84.3 (>58); POTASSIUM SERUM 4.5 MMOL/L (3.5-5.1); TOTAL PROTEIN 7.1 G/DL (5.7-8.2)
[2025-02-18 15:23] LABS: FERRITIN 37.4 NG/ML (7.3-270.7)
[2025-02-19] MEDS ORDERED: MORP1SOL5 PO (08:50)
== END 2025-02-18 14:39 | disposition home or self-care (01) ==
LOC: M INFU 14:20
PROVIDERS: ATTEND Family Medicine
DX: K31.84 Gastroparesis (principal)

== ENCOUNTER → 2025-02-18 | Outpatient (CLI) | payer BC ==
[~2025-02-18] VITALS: Ht 170.2 cm; Wt 74.4 kg
[2025-02-18 15:10] VITALS: BP 137/54; O2SAT 98
== END ==
LOC: M PAL 14:40
PROVIDERS: ATTEND Physician Assistant
DX: Z51.5 Encounter for palliative care (principal); K31.84 Gastroparesis; K92.2 Gastrointestinal hemorrhage, unspecified; K90.829 Short bowel syndrome, unspecified; Z90.3 Acquired absence of stomach [part of]; Z98.890 Other specified postprocedural states; Z93.1 Gastrostomy status; Z93.4 Other artificial openings of gastrointestinal tract status; Z79.891 Long term (current) use of opiate analgesic; Z88.2 Allergy status to sulfonamides; Z88.6 Allergy status to analgesic agent; Z88.5 Allergy status to narcotic agent; Z79.899 Other long term (current) drug therapy; Z91.018 Allergy to other foods; Z91.041 Radiographic dye allergy status

== ENCOUNTER 2025-03-01 17:01 | Emergency (ER) | payer BC ==
[~2025-03-01] VITALS: Ht 170.2 cm; Wt 72.7 kg
[2025-03-01 17:03] VITALS: TEMP 98.1
[2025-03-01] MEDS: carisoprodoL 350 MG TAB PO ONE (20:00)
[2025-03-01 21:24] VITALS: BP 127/84; O2SAT 98
== END 2025-03-01 22:39 | disposition home or self-care (01) ==
LOC: M ED 17:01
DX: S00.83XA Contusion of other part of head, initial encounter (principal); S80.01XA Contusion of right knee, initial encounter; S80.02XA Contusion of left knee, initial encounter; Y92.9 Unspecified place or not applicable; Y93.9 Activity, unspecified; Y99.9 Unspecified external cause status; W19.XXXA Unspecified fall, initial encounter; Z88.2 Allergy status to sulfonamides; Z88.6 Allergy status to analgesic agent; Z88.8 Allergy status to other drugs, medicaments and biological substances; Z91.041 Radiographic dye allergy status; Z79.2 Long term (current) use of antibiotics; Z79.51 Long term (current) use of inhaled steroids; Z79.899 Other long term (current) drug therapy

== ENCOUNTER 2025-03-04 09:21 | Outpatient (CLI) | payer BC ==
[2025-03-04 09:40] VITALS: BP 168/51; O2SAT 97
[2025-03-04 10:26] LABS: HEMATOCRIT 32.6 % (36.0-47.0); HEMOGLOBIN 9.9 g/dl (12.0-15.5); MEAN CORPUSCULAR HEMOGLOBIN 26.1 pg (27.0-33.0); MEAN CORPUSCULAR HGB CONC 30.4 g/dl (32.0-36.5); PLATELET COUNT, AUTOMATED 294 10^3/uL (150-450); RED BLOOD COUNT 3.79 10^6/uL (4.00-5.40); WHITE BLOOD COUNT 4.9 10^3/uL (4.0-10.0)
[2025-03-04 10:56] LABS: ALBUMIN 3.4 G/DL (3.2-5.2); ALKALINE PHOSPHATASE 127 U/L (35-104); ALT/SGPT 13 U/L (7.0-40); AST/SGOT 15 U/L (<34); BILIRUBIN,TOTAL 0.4 MG/DL (0.3-1.2); BLOOD UREA NITROGEN 5 MG/DL (9-23); CALCIUM LEVEL 9.8 MG/DL (8.5-10.1); CARBON DIOXIDE LEVEL 30 MMOL/L (20-31); CHLORIDE LEVEL 102 MMOL/L (98-107); CREATININE FOR GFR 0.67 MG/DL (0.55-1.30); GLOMERULAR FILTRATION RATE > 90.0 (>58); GLUCOSE, FASTING 94 MG/DL (60-100); MAGNESIUM LEVEL 2.1 MG/DL (1.8-2.4); POTASSIUM SERUM 4.1 MMOL/L (3.5-5.1); SODIUM LEVEL 141 MMOL/L (136-145); TOTAL PROTEIN 6.5 G/DL (5.7-8.2)
[2025-03-04 10:57] LABS: FERRITIN 17.4 NG/ML (7.3-270.7)
[2025-03-12] MEDS ORDERED: ATIV1TAB10 JT (15:42)
== END 2025-03-04 10:00 | disposition home or self-care (01) ==
LOC: M INFU 09:21
PROVIDERS: ATTEND Family Medicine
DX: K31.84 Gastroparesis (principal)

== ENCOUNTER 2025-04-22 11:34 | Outpatient (CLI) | payer BC ==
[~2025-04-22] VITALS: Ht 170.2 cm; Wt 75.0 kg
[2025-04-22 12:23] LABS: PLATELET COUNT, AUTOMATED 322 10^3/uL (150-450)
[2025-04-22 12:47] LABS: ALT/SGPT 11 U/L (7.0-40); AST/SGOT 18 U/L (<34); CALCIUM LEVEL 10.7 MG/DL (8.5-10.1); CARBON DIOXIDE LEVEL 27 MMOL/L (20-31); CHLORIDE LEVEL 103 MMOL/L (98-107); CREATININE FOR GFR 0.69 MG/DL (0.55-1.30); GLOMERULAR FILTRATION RATE > 90.0 (>58); MAGNESIUM LEVEL 1.9 MG/DL (1.8-2.4); POTASSIUM SERUM 4.1 MMOL/L (3.5-5.1); SODIUM LEVEL 144 MMOL/L (136-145)
[2025-04-26 12:58] LABS: PHOSPHORUS LEVEL 4.1 MG/DL (2.5-4.9)
== END 2025-04-22 12:20 | disposition home or self-care (01) ==
LOC: M INFU 11:34
PROVIDERS: ATTEND Family Medicine
DX: K31.84 Gastroparesis (principal)

== ENCOUNTER 2025-04-29 11:41 | Outpatient (CLI) | payer BC ==
[2025-04-29 12:00] VITALS: BP 118/70; O2SAT 99
[2025-04-29 12:26] LABS: PLATELET COUNT, AUTOMATED 290 10^3/uL (150-450)
[2025-04-29 13:03] LABS: ALT/SGPT 14 U/L (7.0-40); AST/SGOT 20 U/L (<34); CALCIUM LEVEL 10.2 MG/DL (8.5-10.1); CARBON DIOXIDE LEVEL 30 MMOL/L (20-31); CHLORIDE LEVEL 105 MMOL/L (98-107); CREATININE FOR GFR 0.72 MG/DL (0.55-1.30); GLOMERULAR FILTRATION RATE > 90.0 (>58); MAGNESIUM LEVEL 2.2 MG/DL (1.8-2.4); POTASSIUM SERUM 4.4 MMOL/L (3.5-5.1); SODIUM LEVEL 143 MMOL/L (136-145)
== END 2025-04-29 12:10 ==
LOC: M INFU 11:41
PROVIDERS: ATTEND Family Medicine
DX: K31.84 Gastroparesis (principal); J18.9 Pneumonia, unspecified organism

== ENCOUNTER 2025-05-06 11:57 | Outpatient (CLI) | payer BC ==
[2025-05-06 12:30] VITALS: BP 137/74; O2SAT 98
[2025-05-06 12:48] LABS: PLATELET COUNT, AUTOMATED 261 10^3/uL (150-450)
[2025-05-06 13:15] LABS: ALT/SGPT 18 U/L (7.0-40); AST/SGOT 23 U/L (<34); CALCIUM LEVEL 10.3 MG/DL (8.5-10.1); CARBON DIOXIDE LEVEL 30 MMOL/L (20-31); CHLORIDE LEVEL 103 MMOL/L (98-107); CREATININE FOR GFR 0.78 MG/DL (0.55-1.30); GLOMERULAR FILTRATION RATE > 90.0 (>58); POTASSIUM SERUM 4.3 MMOL/L (3.5-5.1); SODIUM LEVEL 144 MMOL/L (136-145)
== END 2025-05-06 12:40 ==
LOC: M INFU 11:57
PROVIDERS: ATTEND Family Medicine
DX: K31.84 Gastroparesis (principal); J18.9 Pneumonia, unspecified organism

== ENCOUNTER → 2025-05-25 | Outpatient (CLI) | payer BC ==
[~2025-05-25] MED LIST changes: -PROZ20CA11 PO; +PROZ20CA12 PO
[2025-05-25 08:22] LABS: BASO # 0.1 10^3/uL (0.0-0.2); BASO % 0.6 % (0.0-1.0); EOS # 0.2 10^3/uL (0.0-0.5); EOS % 2.6 % (0.0-3.0); LYMPH # 2.3 10^3/uL (1.5-5.0); LYMPH % 28.8 % (24.0-44.0); MONO # 0.7 10^3/uL (0.0-0.8); MONO % 8.3 % (2.0-8.0); NEUTROPHILS # 4.7 10^3/uL (1.5-8.5); NEUTROPHILS % 59.3 % (36.0-66.0); PLATELET COUNT, AUTOMATED 348 10^3/uL (150-450)
[2025-05-25 08:43] LABS: IRON (FE) 60 UG/DL (50-170); PERCENT SATURATION 18.4 % (13.2-45.0)
[2025-05-25 08:44] LABS: ALT/SGPT 26 U/L (7.0-40); AST/SGOT 40 U/L (<34); CALCIUM LEVEL 10.4 MG/DL (8.5-10.1); CARBON DIOXIDE LEVEL 28 MMOL/L (20-31); CHLORIDE LEVEL 102 MMOL/L (98-107); CREATININE FOR GFR 0.87 MG/DL (0.55-1.30); GLOMERULAR FILTRATION RATE 83.2 (>58); POTASSIUM SERUM 3.7 MMOL/L (3.5-5.1); SODIUM LEVEL 141 MMOL/L (136-145)
[2025-05-25 08:45] LABS: PTH INTACT 75.5 PG/ML (18.5-88.0)
[2025-05-25 08:46] LABS: TOTAL 25(OH) VITAMIN D 18.2 NG/ML (20.0-100.0); VITAMIN B12 LEVEL 626 PG/ML (211-911)
== END ==
LOC: M LAB 07:07
PROVIDERS: ATTEND Surgery
DX: G40.909 Epilepsy, unspecified, not intractable, without status epilepticus (principal); K91.2 Postsurgical malabsorption, not elsewhere classified

== ENCOUNTER 2025-06-11 14:25 | Outpatient (CLI) | payer BC ==
[~2025-06-11] VITALS: Ht 170.2 cm; Wt 72.7 kg
[2025-06-11 14:33] VITALS: BP 139/71; O2SAT 99
[2025-06-11 15:30] LABS: PLATELET COUNT, AUTOMATED 350 10^3/uL (150-450)
[2025-06-11 16:33] LABS: ALT/SGPT 43 U/L (7.0-40); AST/SGOT 40 U/L (<34); CALCIUM LEVEL 10.5 MG/DL (8.5-10.1); CARBON DIOXIDE LEVEL 30 MMOL/L (20-31); CHLORIDE LEVEL 101 MMOL/L (98-107); CREATININE FOR GFR 0.56 MG/DL (0.55-1.30); GLOMERULAR FILTRATION RATE > 90.0 (>58); MAGNESIUM LEVEL 2.0 MG/DL (1.8-2.4); POTASSIUM SERUM 4.1 MMOL/L (3.5-5.1); SODIUM LEVEL 141 MMOL/L (136-145)
== END 2025-06-11 15:22 ==
LOC: M INFU 14:25
PROVIDERS: ATTEND Surgery
DX: K31.84 Gastroparesis (principal); J18.9 Pneumonia, unspecified organism

== ENCOUNTER 2025-07-09 13:56 | Outpatient (CLI) | payer BC ==
[~2025-07-09] VITALS: Ht 170.2 cm; Wt 72.7 kg
[~2025-07-09 13:56] MED LIST changes: -DIPH50CA IV; +DIPH50CA31 IV; +ZOLP10TA11 GT; +ZOLP10TA11 JT; +ZOLP10TA11 PO; -ZOLP10TA2 GT; -ZOLP10TA2 JT; -ZOLP10TA2 PO; -ZOLP5TAB JT; +ZOLP5TAB9 JT
[2025-07-09 14:30] VITALS: BP 118/63; O2SAT 96
[2025-07-09 16:09] LABS: BASO # 0.0 10^3/uL (0.0-0.2); BASO % 0.5 % (0.0-1.0); EOS # 0.2 10^3/uL (0.0-0.5); EOS % 4.1 % (0.0-3.0); LYMPH # 1.2 10^3/uL (1.5-5.0); LYMPH % 29.9 % (24.0-44.0); MONO # 0.3 10^3/uL (0.0-0.8); MONO % 8.8 % (2.0-8.0); NEUTROPHILS # 2.2 10^3/uL (1.5-8.5); NEUTROPHILS % 56.7 % (36.0-66.0); PLATELET COUNT, AUTOMATED 276 10^3/uL (150-450)
[2025-07-09 16:27] LABS: C REACTIVE PROTEIN QUANTITATIV < 0.50 MG/DL (<1.0); IRON (FE) 42 UG/DL (50-170)
[2025-07-09 16:28] LABS: PERCENT SATURATION 13.8 % (13.2-45.0)
[2025-07-09 16:29] LABS: TOTAL 25(OH) VITAMIN D 18.0 NG/ML (20.0-100.0)
[2025-07-09 16:33] LABS: ALT/SGPT 16 U/L (7.0-40); AST/SGOT 20 U/L (<34); CALCIUM LEVEL 9.5 MG/DL (8.5-10.1); CARBON DIOXIDE LEVEL 31 MMOL/L (20-31); CHLORIDE LEVEL 104 MMOL/L (98-107); CREATININE FOR GFR 0.61 MG/DL (0.55-1.30); GLOMERULAR FILTRATION RATE > 90.0 (>58); MAGNESIUM LEVEL 1.9 MG/DL (1.8-2.4); PHOSPHORUS LEVEL 3.4 MG/DL (2.5-4.9); POTASSIUM SERUM 3.8 MMOL/L (3.5-5.1); SODIUM LEVEL 139 MMOL/L (136-145); TRIGLYCERIDES LEVEL 123 MG/DL (<150)
== END 2025-07-09 15:15 ==
LOC: M INFU 13:56
PROVIDERS: ATTEND Surgery
DX: K31.84 Gastroparesis (principal); J18.9 Pneumonia, unspecified organism

== ENCOUNTER → 2025-07-19 | Outpatient (CLI) | payer BC | LOC: M PAL 09:20 | PROVIDERS: ATTEND Physician Assistant | DX: Z51.5 Encounter for palliative care (principal); K90.9 Intestinal malabsorption, unspecified; K31.84 Gastroparesis; K92.2 Gastrointestinal hemorrhage, unspecified; K90.829 Short bowel syndrome, unspecified; Z98.84 Bariatric surgery status; Z98.890 Other specified postprocedural states; Z79.891 Long term (current) use of opiate analgesic; Z88.2 Allergy status to sulfonamides; Z88.6 Allergy status to analgesic agent; Z88.5 Allergy status to narcotic agent; Z91.041 Radiographic dye allergy status; Z91.018 Allergy to other foods; Z79.52 Long term (current) use of systemic steroids; Z79.899 Other long term (current) drug therapy ==

== ENCOUNTER → 2025-07-30 | Outpatient (CLI) | payer BC ==
[~2025-07-30] VITALS: Ht 170.2 cm; Wt 72.7 kg
[2025-07-30 15:24] LABS: BASO # 0.0 10^3/uL (0.0-0.2); BASO % 0.4 % (0.0-1.0); EOS # 0.2 10^3/uL (0.0-0.5); EOS % 3.0 % (0.0-3.0); LYMPH # 1.5 10^3/uL (1.5-5.0); LYMPH % 28.2 % (24.0-44.0); MONO # 0.4 10^3/uL (0.0-0.8); MONO % 7.8 % (2.0-8.0); NEUTROPHILS # 3.2 10^3/uL (1.5-8.5); NEUTROPHILS % 60.2 % (36.0-66.0); PLATELET COUNT, AUTOMATED 282 10^3/uL (150-450)
[2025-07-30 16:05] LABS: ALT/SGPT 15 U/L (7.0-40); AST/SGOT 14 U/L (<34); CALCIUM LEVEL 9.7 MG/DL (8.5-10.1); CARBON DIOXIDE LEVEL 31 MMOL/L (20-31); CHLORIDE LEVEL 102 MMOL/L (98-107); CREATININE FOR GFR 0.67 MG/DL (0.55-1.30); GLOMERULAR FILTRATION RATE > 90.0 (>58); MAGNESIUM LEVEL 2.1 MG/DL (1.8-2.4); PHOSPHORUS LEVEL 3.8 MG/DL (2.5-4.9); POTASSIUM SERUM 4.2 MMOL/L (3.5-5.1); SODIUM LEVEL 141 MMOL/L (136-145); TRIGLYCERIDES LEVEL 208 MG/DL (<150)
== END ==
LOC: M INFU 14:06
PROVIDERS: ATTEND Surgery
DX: K31.84 Gastroparesis (principal); J18.9 Pneumonia, unspecified organism

== ENCOUNTER → 2025-08-18 | Outpatient (CLI) | payer BC ==
[~2025-08-18] MED LIST changes: -ROSU10TA61 JT; +ROSU10TA90 JT
== END ==
LOC: M PAL 08:34
PROVIDERS: ATTEND Physician Assistant
DX: Z51.5 Encounter for palliative care (principal); Z99.89 Dependence on other enabling machines and devices; K31.84 Gastroparesis; K92.2 Gastrointestinal hemorrhage, unspecified; K90.829 Short bowel syndrome, unspecified; Z98.84 Bariatric surgery status; Z79.891 Long term (current) use of opiate analgesic; Z88.6 Allergy status to analgesic agent; Z88.2 Allergy status to sulfonamides; Z91.018 Allergy to other foods; Z88.5 Allergy status to narcotic agent; Z91.041 Radiographic dye allergy status; Z79.899 Other long term (current) drug therapy

== ENCOUNTER 2025-08-21 21:38 | Emergency (ER) | payer BC ==
[~2025-08-21] VITALS: Ht 170.2 cm; Wt 72.1 kg
[2025-08-21 22:37] LABS: PLATELET COUNT, AUTOMATED 189 10^3/uL (150-450)
[2025-08-21 22:50] LABS: BASOPHILS 1 % (0-1); EOSINOPHILS 1 % (0-3); LYMPHOCYTES 1 % (16-44); METAMYELOCYTES 1 % (0-0); NEUTROPHILS 68 % (28-66); PLATELET CLUMPS SMALL AMT
[2025-08-21 22:52] LABS: PLATELET ESTIMATE NORMAL (NORMAL)
[2025-08-21 23:01] LABS: ALT/SGPT 158.0 U/L (7.0-40); AST/SGOT 333.0 U/L (<34); CALCIUM LEVEL 8.6 MG/DL (8.5-10.1); CARBON DIOXIDE LEVEL 22.0 MMOL/L (20-31); CHLORIDE LEVEL 96.0 MMOL/L (98-107); CREATININE FOR GFR 0.93 MG/DL (0.55-1.30); GLOMERULAR FILTRATION RATE 76.8 (>58); POTASSIUM SERUM 4.3 MMOL/L (3.5-5.1); SODIUM LEVEL 131.0 MMOL/L (136-145)
[2025-08-22] MEDS: NS 0.9% IV STA (00:01)
[2025-08-22] MEDS: [UNRECOGNIZED DRUG - OTHER] IV STA (00:01)
[2025-08-22] MEDS: ONDANSETRON 4MG/2ML VIAL IV ONE (00:56)
[2025-08-22] MEDS: diphenhydrAMINE 50 MG/ML VIAL IV ONE (00:57)
[2025-08-22] MEDS: MIDODRINE 5 MG TAB PO STA ×2 (01:18→08:34)
[2025-08-22 01:29] LABS: ABG BASE EXCESS -3.6 (-2.0-2.0); ABG HCO3 20.1 MMOL/L (22.0-26.0); ABG O2 SATURATION 97.9 % (95.0-99.0); ABG PARTIAL PRESSURE CO2 31.6 mmHg (35.0-45.0); ABG PARTIAL PRESSURE O2 116.1 mmHg (75.0-100.0); ABG STANDARD HCO3 21.4 MMOL/L. (22.0-26.0); ABG TOTAL CO2 21.1 MMOL/L (22.0-29.0); ABG pH (ARTERIAL) 7.421 UNITS (7.350-7.450)
[2025-08-22] MEDS: CEFEPIME HCL 2 GM in DEXTROSE 5% (D5W) ADV/MINI-BAG 50 ML IV ONE ×2 (01:45→11:15)
[2025-08-22] MEDS: NOREPINEPHRINE 4MG IN D5 250ML 4 MG in IV 1 EA IV SCH (01:55)
[2025-08-22 01:56] LABS: KETONE, URINE AUTO RFX NEGATIVE (NEGATIVE); LEUKOCYTE ESTERASE UR AUTO RFX NEGATIVE (NEGATIVE); NITRITE, URINE AUTO RFX NEGATIVE (NEGATIVE); RBC, URINE AUTO RFX 1 /HPF (0-3); SQUAM EPITHELIAL CELL UR AURFX 0 /HPF (0-6); WBC, URINE AUTO RFX 9 /HPF (0-3)
[2025-08-22] MEDS: HYDROMORPHONE HCL 0.5 MG/0.5 ML SYRINGE IV PRN ×2 (03:39→06:27)
[2025-08-22] MEDS: ALPRAZolam 0.5 MG TAB PO ONE (03:43)
[2025-08-22 05:11] LABS: ALT/SGPT 136 U/L (7.0-40); AST/SGOT 219 U/L (<34)
[2025-08-22] MEDS: NS (Normal Saline) 0.9% 1,000 ML IV SCH (05:35)
[2025-08-22] MEDS: NS (Normal Saline) 0.9% 1,000 ML IV ONE ×3 (08:18→11:30)
[2025-08-22 08:34] VITALS: BP 126/64
[2025-08-22] MEDS: MIDAZOLAM INJ 2 MG/2 ML VIAL IV STA (09:41)
[2025-08-22 15:16] VITALS: BP 84/47
[2025-08-22 15:28] LABS: PLATELET COUNT, AUTOMATED 134 10^3/uL (150-450)
[2025-08-22 15:31] VITALS: O2SAT 91
[2025-08-22 15:53] LABS: LYMPHOCYTES 9 % (16-44); METAMYELOCYTES 3 % (0-0); MONOCYTES 7 % (0-5); NEUTROPHILS 68 % (28-66)
[2025-08-22 15:55] LABS: PLATELET ESTIMATE DECREASED (NORMAL)
[2025-08-22 16:07] LABS: ALT/SGPT 110.0 U/L (7.0-40); AST/SGOT 130.0 U/L (<34)
== END 2025-08-22 15:48 | disposition short-term general hospital (02) ==
LOC: M ED 21:38
DX: A41.50 Gram-negative sepsis, unspecified (principal); R65.21 Severe sepsis with septic shock; R00.0 Tachycardia, unspecified; G40.909 Epilepsy, unspecified, not intractable, without status epilepticus; Z86.718 Personal history of other venous thrombosis and embolism; Z88.1 Allergy status to other antibiotic agents; Z88.2 Allergy status to sulfonamides; Z88.5 Allergy status to narcotic agent; Z88.6 Allergy status to analgesic agent; Z91.041 Radiographic dye allergy status
CPT/HCPCS: 36600; 51701; 71045; 71250; 74176; 74181; 80053; 80076; 81001; 82803; 83605; 84145; 85025; 87040; 87077; 87154; 87186; 87486; 87581; 87633; 87798; 93005; 93041; 94760; 96361; 96365; 96366; 96367; 96375; 96376; 99285; J0692; J1171; J1200; J2250; J2405

== ENCOUNTER 2025-09-09 15:32 | Outpatient (CLI) | payer BC | END 2025-09-09 16:30 | disposition home or self-care (01) | LOC: M LAB 15:32 | PROVIDERS: ATTEND Family Medicine | DX: E78.2 Mixed hyperlipidemia (principal); D68.59 Other primary thrombophilia; E55.9 Vitamin D deficiency, unspecified; Z78.9 Other specified health status; E50.0 Vitamin A deficiency with conjunctival xerosis; K75.81 Nonalcoholic steatohepatitis (NASH); F51.04 Psychophysiologic insomnia; Z53.9 Procedure and treatment not carried out, unspecified reason ==

== ENCOUNTER → 2025-09-10 | Outpatient (CLI) | payer BC ==
[2025-09-10 17:00] VITALS: BP 96/55; O2SAT 99
[2025-09-10 17:45] LABS: BASO # 0.0 10^3/uL (0.0-0.2); BASO % 0.8 % (0.0-1.0); EOS # 0.1 10^3/uL (0.0-0.5); EOS % 1.6 % (0.0-3.0); LYMPH # 0.6 10^3/uL (1.5-5.0); LYMPH % 14.8 % (24.0-44.0); MONO # 0.6 10^3/uL (0.0-0.8); MONO % 16.1 % (2.0-8.0); NEUTROPHILS # 2.6 10^3/uL (1.5-8.5); NEUTROPHILS % 66.4 % (36.0-66.0); PLATELET COUNT, AUTOMATED 278 10^3/uL (150-450)
[2025-09-10 18:07] LABS: C REACTIVE PROTEIN QUANTITATIV 0.57 MG/DL (<1.0)
[2025-09-10 18:09] LABS: ALT/SGPT 16 U/L (7.0-40); AST/SGOT 19 U/L (<34); CALCIUM LEVEL 9.7 MG/DL (8.5-10.1); CARBON DIOXIDE LEVEL 28 MMOL/L (20-31); CHLORIDE LEVEL 101 MMOL/L (98-107); CREATININE FOR GFR 0.57 MG/DL (0.55-1.30); GLOMERULAR FILTRATION RATE > 90.0 (>58); MAGNESIUM LEVEL 2.0 MG/DL (1.8-2.4); PHOSPHORUS LEVEL 3.5 MG/DL (2.5-4.9); POTASSIUM SERUM 3.8 MMOL/L (3.5-5.1); SODIUM LEVEL 139 MMOL/L (136-145); TRIGLYCERIDES LEVEL 228 MG/DL (<150)
== END ==
LOC: M INFU 16:14
PROVIDERS: ATTEND Surgery
DX: K31.84 Gastroparesis (principal); J18.9 Pneumonia, unspecified organism

== ENCOUNTER → 2025-09-10 | Outpatient (CLI) | payer BC ==
[2025-09-10 18:12] LABS: CHOLESTEROL LEVEL 220.0 MG/DL (<200); CHOLESTEROL RISK RATIO 6.19 (<5); CPK CREATINE PHOSPHOKINASE 34.0 U/L (34-145); LDL CHOLESTEROL 138.7 MG/DL (<100); NON-HDL-C 184.5 MG/DL; PTH INTACT 159.2 PG/ML (18.5-88.0); TOTAL 25(OH) VITAMIN D 13.4 NG/ML (20.0-100.0); TRIGLYCERIDES LEVEL 229.0 MG/DL (<150)
[2025-09-10 18:13] LABS: FREE T4 0.79 NG/DL (0.89-1.76)
== END ==
LOC: M INFU 16:16
PROVIDERS: ATTEND Family Medicine
DX: E78.2 Mixed hyperlipidemia (principal); E55.9 Vitamin D deficiency, unspecified; Z78.9 Other specified health status; D50.0 Iron deficiency anemia secondary to blood loss (chronic); K76.81 Hepatopulmonary syndrome; F51.04 Psychophysiologic insomnia

== ENCOUNTER → 2025-09-20 | Outpatient (CLI) | payer BC ==
[~2025-09-20] MED LIST changes: -PROZ20CA12 PO; +PROZ20CA25 PO
== END ==
LOC: M PAL 09:16
PROVIDERS: ATTEND Physician Assistant
DX: Z51.5 Encounter for palliative care (principal); Z99.2 Dependence on renal dialysis; K31.84 Gastroparesis; K92.2 Gastrointestinal hemorrhage, unspecified; K90.829 Short bowel syndrome, unspecified; Z98.84 Bariatric surgery status; Z79.891 Long term (current) use of opiate analgesic; Z88.2 Allergy status to sulfonamides; Z88.5 Allergy status to narcotic agent; Z91.041 Radiographic dye allergy status; Z88.6 Allergy status to analgesic agent; Z79.899 Other long term (current) drug therapy; Z79.83 Long term (current) use of bisphosphonates

== ENCOUNTER 2025-10-01 08:03 | Outpatient (CLI) | payer BC ==
[2025-10-01 08:25] VITALS: BP 103/56; O2SAT 98
[2025-10-01 08:43] LABS: BASO # 0.0 10^3/uL (0.0-0.2); BASO % 0.4 % (0.0-1.0); EOS # 0.2 10^3/uL (0.0-0.5); EOS % 1.9 % (0.0-3.0); LYMPH # 1.1 10^3/uL (1.5-5.0); LYMPH % 11.9 % (24.0-44.0); MONO # 0.6 10^3/uL (0.0-0.8); MONO % 6.2 % (2.0-8.0); NEUTROPHILS # 7.5 10^3/uL (1.5-8.5); NEUTROPHILS % 79.3 % (36.0-66.0); PLATELET COUNT, AUTOMATED 277 10^3/uL (150-450)
[2025-10-01 09:00] LABS: C REACTIVE PROTEIN QUANTITATIV 2.84 MG/DL (<1.0)
[2025-10-01 09:01] LABS: ALT/SGPT 12 U/L (7.0-40); AST/SGOT 17 U/L (<34); CALCIUM LEVEL 9.6 MG/DL (8.5-10.1); CARBON DIOXIDE LEVEL 29 MMOL/L (20-31); CHLORIDE LEVEL 99 MMOL/L (98-107); CREATININE FOR GFR 0.60 MG/DL (0.55-1.30); GLOMERULAR FILTRATION RATE > 90.0 (>58); MAGNESIUM LEVEL 2.0 MG/DL (1.8-2.4); PHOSPHORUS LEVEL 3.3 MG/DL (2.5-4.9); POTASSIUM SERUM 4.2 MMOL/L (3.5-5.1); SODIUM LEVEL 135 MMOL/L (136-145); TRIGLYCERIDES LEVEL 184 MG/DL (<150)
== END 2025-10-01 08:40 ==
LOC: M INFU 08:03
PROVIDERS: ATTEND Surgery
DX: K31.84 Gastroparesis (principal); J18.9 Pneumonia, unspecified organism